=== PATIENT | female | born 1975 | race Caucasian/White ===

== ENCOUNTER 2020-05-08 11:51 | Emergency (ER) | payer MEDICAID, SELFPAY ==
--- NOTE | 2020-05-08 | XR_ITS ---
EXAMINATION: XR HAND, LEFT CLINICAL INFORMATION: Third digit swelling/erythema. COMPARISON: 03/04/2020 TECHNIQUE: PA, lateral, and oblique views of the left hand. FINDINGS: There is uniform circumferential soft tissue swelling in the long finger distally, most pronounced along the distal phalanx and DIP joint. There is subtle periostitis at the margins of the middle phalanx distally with subtle erosions as well. These findings are more pronounced as compared to prior. Other joints appear well-preserved. No additional areas of periostitis or erosion. Joint spaces are otherwise well-preserved. IMPRESSION: Soft tissue swelling, periostitis, and subtle erosions at the long finger at the DIP joint, most typical of psoriatic arthropathy. Septic arthritis is also on the differential, though less likely given the patient's time course.
[2020-05-08 12:09] VITALS: BP 119/73; PULSE 77; RESP 20; TEMP 36.9; O2SAT 99; BMI 28.4
[2020-05-08 13:56] VITALS: BP 105/62; PULSE 62; RESP 16; O2SAT 97
--- NOTE | 2020-05-08 14:16 | ED_ITS ---
HPI - Extremity Injury (Lower) General Chief Complaint: Extremity Injury, Lower Stated Complaint: leg pain Time Seen by Provider: 05/08/20 11:56 Source: patient Mode of arrival: ambulatory History of Present Illness HPI Narrative: 44-year-old female with a past medical history of chronic pain syndrome, lupus, RA on methotrexate, osteoarthritis, Hodgkin's disease, B12 deficiency c/o diffuse joint pain times yesterday, worse in bilateral knees and left 3rd digit. Admits to similar symptoms in the past. Denies trauma /falls. Denies fever, chills, numbness / tingling. MD complaint: knee injury Onset (ago): day(s) Related Data Home Medications Medication Instructions Recorded Confirmed apixaban [Eliquis] 5 mg PO BID 05/01/20 05/01/20 benztropine 0.5 mg PO DAILY 05/01/20 05/01/20 folic acid 1 mg PO DAILY 05/01/20 05/01/20 gabapentin 400 mg PO TID 05/01/20 05/01/20 risperidone 1 mg PO DAILY 05/01/20 05/01/20 sertraline 100 mg PO DAILY 05/01/20 05/01/20 Allergies Allergy/AdvReac Type Severity Reaction Status Date / Time almond [ALMONDS] Allergy Severe ANAPHYLAXIS Verified 05/01/20 08:28 adhesive tape [ADHESIVE TAPE] Allergy Intermediate RASH Verified 05/01/20 08:28 morphine [MORPHINE] Allergy Intermediate GI UPSET, Verified 05/01/20 08:28 difficulty breathing tramadol [TRAMADOL] AdvReac Unknown NAUSEA & Verified 05/01/20 08:28 VOMITING Review of Systems Review of Systems: Constitutional: No Weight loss, No Fever, No Chills, No Night Sweats, No Fatigue Cardiovascular: No Chest Pain, No SOB, No Dyspnea on Exertion, No Orthopnea, No Edema, No Palpitations Respiratory: No Cough, No Sputum, No Wheezing Gastrointestinal: No Nausea, No Vomiting, No Diarrhea, No Constipation, No abdominal Pain Musculoskeletal: + joint pain, + Myalgias, + Joint Swelling Skin: No Skin Lesions, No rash Neuro: No Weakness, No Numbness, No Paresthesias, No Loss of Consciousness Psych: No Anxiety/Panic, No Depression, No SI/HI/AH/VH, No Social Issues, Yes all other systems are reviewed and are negative Neurologic: Denies Sensory deficit (Neuro) [facility] Past Medical History Attestation statement: The following information was validated with the patient. Medical History Acute arthritis Bleeding hemorrhoid Chronic GERD De Quervain's disease (tenosynovitis) Degeneration of intervertebral disc at C4-C5 level Degeneration, intervertebral disc, lumbar Depressive disorder Esophageal dysphagia Fibromyalgia Frequency-urgency syndrome Gallstones Hodgkin disease Nocturia Osteoarthritis of spine with radiculopathy, lumbar region Rheumatoid arthritis involving multiple sites Seropositive rheumatoid arthritis Stress incontinence in female Systemic lupus erythematosus Urgency-frequency syndrome Vitamin D deficiency Surgical History (Updated 04/26/20 @ 13:35 by Meri Martinez MA) History of esophagogastroduodenoscopy (EGD) History of lymph node dissection of left axilla History of repair of inguinal hernia Social History Social History Alcohol intake: unknown Smoking Status: Current every day smoker Smoked in Last 30 Days: Yes Use of substances other than those prescribed or required for medical reasons: Unknown Advance Directives: No Advance Directives Information Provided: Yes Physical Exam Vital Signs and I&O and Narrative: Vital Signs and I&O: Vital Signs Temp 98.4 F 05/08/20 12:09 Pulse 62 05/08/20 13:56 Resp 16 05/08/20 13:56 BP 105/62 05/08/20 13:56 Pulse Ox 97 05/08/20 13:56 Intake & Output 05/07/20 05/08/20 05/08/20 18:59 06:59 18:59 Weight 79.832 kg Body Mass Index 28.4 Const: General: cooperative Orientation/consciousness: patient oriented x3 Limitations: no limitations HENMT: Head: Yes normal to inspection Ears: hearing grossly normal bilaterally General nose exam: Normal external nose present Face and sinus: Yes normal facial exam Eyes: General: appearance normal, both eyes and all related structures EOM: EOMs intact bilaterally Neck: Neck: Yes normal visual inspection Resp: Effort & Inspection: normal respiratory effort Cardio: Rate: regular rate Peripheral pulses: Peripheral pulses 2+ throughout GI: Inspection: Yes normal to inspection Palpation (GI): Soft to palpation, nontender, no guarding and not rigid Skin: General skin exam: no rashes or lesions noted Neuro: General: patient oriented x3 Sensory Exam: No Sensory deficit (Neuro) Extrem: Other: Distal left 3rd digit with erythema, swelling, and tenderness. Decreased range of motion secondary to pain. No streaking, fluctuance /induration or crepitus Bilateral knees with tenderness and decreased range of motion secondary to pain. No swelling, erythema, crepitus Course Course Course Narrative: -1417--XR showing: Soft tissue swelling, periostitis, and subtle erosions at the long finger at the DIP joint, most typical of psoriatic arthropathy. Septic arthritis is also on the differential, though less likely given the patient's time course -1630-- no leukocytosis, H&H at baseline, ESR chronically elevated, CRP WNL Lactate negative >> without newly elevated inflammatory markers or lactate, and due to patient's history/abrupt onset of symptoms septic arthritis unlikely. MDM - Extremity Injury (Lower) MDM Narrative Medical decision making narrative: 44-year-old female with a past medical history of chronic pain syndrome, lupus, RA on methotrexate, osteoarthritis, Hodgkin's disease, B12 deficiency c/o diffuse joint pain times yesterday, worse in bilateral knees and left 3rd digit. On exam VSS, NAD, tenderness to palpation of multiple joints, left 3rd digit with erythema. Low concern for abscess. Likely OA/RA flare. Low concern for septic joint /arthritis or cellulitis Plan: X-ray, labs Lab Data Result diagrams: 05/08/20 15:12 05/08/20 15:12 Labs: Lab Results 05/08/20 05/08/20 05/08/20 Range/Units 15:12 15:12 15:12 WBC 4.5 L (4.8-10.8) X10*3/uL RBC 3.68 L (4.20-5.50) X10*6/uL Hgb 11.6 L (12.0-16.0) g/dl Hct 35.6 L (37-47) % MCV 96.7 (80-98) fL MCH 31.5 (27.0-33.0) pg MCHC 32.6 (31.0-35.0) g/dl RDW 13.5 (11.0-16.0) % Plt Count 242 (160-400) X10*3/uL MPV 9.7 (9.4-12.3) fL Immature Gran % (Auto) 0.4 (0.0-0.4) % Neut % (Auto) 39.7 L (45-73) % Lymph % (Auto) 52.3 H (20-40) % [place] % (Auto) 5.6 (2-11) % Eos % (Auto) 1.8 (0-4) % Baso % (Auto) 0.2 (0-2) % Lymph # (Auto) 2.3 (1.2-4.9) X10*3/uL [place] # (Auto) 0.3 (0.1-1.2) X10*3/uL Eos # (Auto) 0.1 (0.0-0.4) X10*3/uL Baso # (Auto) 0.0 (0.0-0.2) X10*3/uL Abs Immat Gran (auto) 0.02 (0.00-0.03) X10*3/uL Absolute Neuts (auto) 1.8 L (2.0-8.3) X10*3/uL Absolute Nucleated RBC 0.000 (0.0-0.012) X10*3/uL Nucleated RBC % (auto) 0.0 (0.0-0.2) /100WBC ESR 85 H (0-20) MM/HR Sodium 139 (135-145) mmol/L Potassium 4.2 (3.3-5.1) mmol/l Chloride 104 (96-108) mmol/L Carbon Dioxide 28 (22-29) mmol/L Anion Gap 11 L (12-20) BUN 7 L (9-16) mg/dL Creatinine 0.76 (0.5-1.4) mg/dL Estim Creat Clear Calc 101.7 Estimated GFR > 60 Random Glucose 84 (60-115) mg/dL Lactic Acid (0.5-2.0) mmol/L Calcium 9.4 (8.4-10.2) mg/dL C-Reactive Protein 0.43 (< or = 0.50) mg/dL 05/08/20 Range/Units 15:12 WBC (4.8-10.8) X10*3/uL RBC (4.20-5.50) X10*6/uL Hgb (12.0-16.0) g/dl Hct (37-47) % MCV (80-98) fL MCH (27.0-33.0) pg MCHC (31.0-35.0) g/dl RDW (11.0-16.0) % Plt Count (160-400) X10*3/uL MPV (9.4-12.3) fL Immature Gran % (Auto) (0.0-0.4) % Neut % (Auto) (45-73) % Lymph % (Auto) (20-40) % [place] % (Auto) (2-11) % Eos % (Auto) (0-4) % Baso % (Auto) (0-2) % Lymph # (Auto) (1.2-4.9) X10*3/uL [place] # (Auto) (0.1-1.2) X10*3/uL Eos # (Auto) (0.0-0.4) X10*3/uL Baso # (Auto) (0.0-0.2) X10*3/uL Abs Immat Gran (auto) (0.00-0.03) X10*3/uL Absolute Neuts (auto) (2.0-8.3) X10*3/uL Absolute Nucleated RBC (0.0-0.012) X10*3/uL Nucleated RBC % (auto) (0.0-0.2) /100WBC ESR (0-20) MM/HR Sodium (135-145) mmol/L Potassium (3.3-5.1) mmol/l Chloride (96-108) mmol/L Carbon Dioxide (22-29) mmol/L Anion Gap (12-20) BUN (9-16) mg/dL Creatinine (0.5-1.4) mg/dL Estim Creat Clear Calc Estimated GFR Random Glucose (60-115) mg/dL Lactic Acid 1.1 (0.5-2.0) mmol/L Calcium (8.4-10.2) mg/dL C-Reactive Protein (< or = 0.50) mg/dL Discharge Plan Discharge Prescriptions: No Action benztropine 0.5 mg Tablet 0.5 mg PO DAILY RF: 0 sertraline 100 mg Tablet 100 mg PO DAILY RF: 0 folic acid 1 mg Tablet 1 mg PO DAILY RF: 0 risperidone 1 mg Tablet 1 mg PO DAILY RF: 0 gabapentin 400 mg Tablet 400 mg PO TID RF: 0 Eliquis 5 mg Tablet 5 mg PO BID RF: 0
[2020-05-08] MEDS: oxyCODONE HCl Immed Release 5 MG TABLET PO (15:01)
[2020-05-08 15:16] LABS: MANUAL DIFF FLAG NO
[2020-05-08 15:19] LABS: Basophils Percent Auto 0.2 % (0-2); Eosinophils Absolute Auto 0.1 X10*3/uL (0.0-0.4); Eosinophils Percent Auto 1.8 % (0-4); Hematocrit 35.6 % (37-47); Hemoglobin 11.6 g/dl (12.0-16.0); Imm Gran Abs Auto 0.02 X10*3/uL (0.00-0.03); Imm Gran Pct Auto 0.4 % (0.0-0.4); Lymphocytes Absolute Auto 2.3 X10*3/uL (1.2-4.9); Lymphocytes Percent Auto 52.3 % (20-40); Mean Corpuscular HGB Conc 32.6 g/dl (31.0-35.0); Mean Corpuscular Hemoglobin 31.5 pg (27.0-33.0); Mean Corpuscular Volume 96.7 fL (80-98); Mean Platelet Volume 9.7 fL (9.4-12.3); Monocytes Absolute Auto 0.3 X10*3/uL (0.1-1.2); Monocytes Percent Auto 5.6 % (2-11); Neutrophils Absolute Auto 1.8 X10*3/uL (2.0-8.3); Neutrophils Percent Auto 39.7 % (45-73); Platelet Count 242 X10*3/uL (160-400); Red Blood Count 3.68 X10*6/uL (4.20-5.50); Red Cell Distribution Width 13.5 % (11.0-16.0); White Blood Count 4.5 X10*3/uL (4.8-10.8)
[2020-05-08 15:40] LABS: Lactic Acid 1.1 mmol/L (0.5-2.0)
[2020-05-08 15:43] LABS: Anion Gap 11 (12-20); Blood Urea Nitrogen 7 mg/dL (9-16); C Reactive Protein 0.43 mg/dL (< or = 0.50); Calcium 9.4 mg/dL (8.4-10.2); Carbon Dioxide 28 mmol/L (22-29); Chloride 104 mmol/L (96-108); Creatinine Clr Calc Pharmacy 101.7; Estimated Glomerular Filt Rate > 60; Glucose Random 84 mg/dL (60-115); Potassium 4.2 mmol/l (3.3-5.1); Sodium 139 mmol/L (135-145)
[2020-05-08 16:09] LABS: Erythrocyte Sedimentation Rate 85 MM/HR (0-20)
[2020-05-08 16:40] VITALS: BP 112/76; PULSE 70; RESP 16; O2SAT 98
== END 2020-05-08 17:38 | disposition home or self-care (01) ==
PROVIDERS: Physician Assistant; Emergency Provider Internal Medicine
DX: M89.49 Other hypertrophic osteoarthropathy, multiple sites (principal); F17.200 Nicotine dependence, unspecified, uncomplicated; Z86.718 Personal history of other venous thrombosis and embolism; M05.9 Rheumatoid arthritis with rheumatoid factor, unspecified; Z85.71 Personal history of Hodgkin lymphoma; Z79.899 Other long term (current) drug therapy; Z79.01 Long term (current) use of anticoagulants
CPT/HCPCS: 36415; 73130; 80048; 83605; 85025; 85652; 86140; 99283; 99284

== ENCOUNTER 2020-05-09 09:41 | Outpatient (REF) | payer MEDICAID, SELFPAY ==
[2020-05-09 11:54] LABS: MANUAL DIFF FLAG NO
[2020-05-09 12:09] LABS: Basophils Percent Auto 0.4 % (0-2); Eosinophils Absolute Auto 0.1 X10*3/uL (0.0-0.4); Eosinophils Percent Auto 2.1 % (0-4); Hematocrit 35.6 % (37-47); Hemoglobin 11.6 g/dl (12.0-16.0); Imm Gran Abs Auto 0.01 X10*3/uL (0.00-0.03); Imm Gran Pct Auto 0.2 % (0.0-0.4); Lymphocytes Percent Auto 40.3 % (20-40); Mean Corpuscular HGB Conc 32.6 g/dl (31.0-35.0); Mean Corpuscular Hemoglobin 31.6 pg (27.0-33.0); Mean Platelet Volume 10.2 fL (9.4-12.3); Monocytes Absolute Auto 0.3 X10*3/uL (0.1-1.2); Monocytes Percent Auto 6.2 % (2-11); Neutrophils Absolute Auto 2.5 X10*3/uL (2.0-8.3); Neutrophils Percent Auto 50.8 % (45-73); Platelet Count 256 X10*3/uL (160-400); Red Blood Count 3.67 X10*6/uL (4.20-5.50); Red Cell Distribution Width 13.5 % (11.0-16.0); White Blood Count 4.9 X10*3/uL (4.8-10.8)
[2020-05-09 12:10] LABS: Glucose Urine UA NEG (NEG); Leukocyte Esterase Urine NEG (NEG); Nitrite Urine NEG (NEG); PH 5.5 (5.0-8.0); Specific Gravity - Urine >= 1.030 (1.005-1.025); Urine Blood 1+ (NEG); Urine Ketones NEG (NEG); Urine Protein NEG (NEG-TRACE)
[2020-05-09 12:27] LABS: Alanine Aminotransferase 13 U/L (0-31); Albumin Level 3.9 g/dL (3.5-5.0); Alkaline Phosphatase 65 U/L (39-117); Anion Gap 11 (12-20); Aspartate Amino Transferase 16 U/L (5-31); Bilirubin Total 0.3 mg/dL (0.0-1.0); Blood Urea Nitrogen 11 mg/dL (9-16); C Reactive Protein 0.57 mg/dL (< or = 0.50); Carbon Dioxide 26 mmol/L (22-29); Chloride 104 mmol/L (96-108); Estimated Glomerular Filt Rate > 60; Glucose Random 88 mg/dL (60-115); Potassium 4.2 mmol/l (3.3-5.1); Sodium 137 mmol/L (135-145); Total Protein 8.4 g/dL (6.5-8.0)
[2020-05-09 12:42] LABS: Appearance Urine HAZY; Color Urine YELLOW
[2020-05-09 12:55] LABS: Mucus Urine 2+ /LPF; Squamous Epithelial Cell Urine 2+ /LPF; WBC Urine 0 /HPF (0-4)
[2020-05-09 15:12] LABS: Erythrocyte Sedimentation Rate 83 MM/HR (0-20)
[2020-05-10 12:36] LABS: Anti DNA DS Antibody 2 IU/mL
[2020-05-12 10:26] LABS: Complement C3 85 mg/dL (83-193)
[2020-05-12 14:36] LABS: Prot Elec - Albumin 3.8 g/dL (3.8-4.8); Prot Elec - Alpha1 0.4 g/dL (0.2-0.3); Prot Elec - Alpha2 0.8 g/dL (0.5-0.9); Prot Elec - Beta 1 0.5 g/dL (0.4-0.6); Prot Elec - Beta 2 0.6 g/dL (0.2-0.5); Prot Elec - Gamma 2.3 g/dL (0.8-1.7); Prot Elec - Total Protein 8.3 g/dL (6.1-8.1)
[2020-05-12 15:22] LABS: IgA 578 mg/dL (47-310); IgG 2576 mg/dL (600-1640); IgM 181 mg/dL (50-300)
[2020-05-20 11:14] LABS: PEU-Random Urine Creatinine 151
[2020-05-20 11:16] LABS: PEU-Random Urine Protein 11
[2020-05-20 11:19] LABS: PEU-Rand. Prot/Creat Ratio 73
[2020-05-20 11:20] LABS: PEU-Random Ur. Gamma Globulin 0; PEU-Random Urine A1 Globulin 0; PEU-Random Urine A2 Globulin 0; PEU-Random Urine Albumin 100; PEU-Random Urine Beta Globulin 0
== END 2020-05-09 09:42 | disposition home or self-care (01) ==
LOC: HO.LAB 09:41
PROVIDERS: PCP Emergency Medicine; Referring Provider Emergency Medicine; Visit Provider Student in an Organized Health Care Education/Training Program
DX: M05.9 Rheumatoid arthritis with rheumatoid factor, unspecified (principal); M32.9 Systemic lupus erythematosus, unspecified; F17.200 Nicotine dependence, unspecified, uncomplicated; Z79.899 Other long term (current) drug therapy
CPT/HCPCS: 36415; 80053; 81001; 82570; 82784; 84155; 84156; 84165; 84166; 85025; 85652; 86140; 86160; 86225; 86334; 86335; 99214

== ENCOUNTER 2020-05-20 13:53 | Outpatient (REF) | payer MEDICAID, SELFPAY ==
--- NOTE | 2020-05-20 | US_ITS ---
EXAMINATION: US RETROPERITONEAL LIMITED (RENAL ONLY) CLINICAL INFORMATION: Abdominal pain. History of renal stones. COMPARISON: Limited abdominal ultrasound dated 03/15/2020. CT abdomen and pelvis dated 02/27/2019 TECHNIQUE: Real-time imaging of the kidneys. FINDINGS: RIGHT KIDNEY: 11.4 x 5.3 x 5.0 cm (SAG x AP x TRV). The kidney is normal in size, contour, and echogenicity. Renal cortical thickness is normal. No calculi or focal parenchymal lesions. No hydronephrosis. LEFT KIDNEY: 11.1 x 5.6 x 5.6 cm (SAG x AP x TRV). The kidney is normal in size, contour, and echogenicity. Renal cortical thickness is normal. No calculi or focal parenchymal lesions. No hydronephrosis. IMPRESSION: Normal renal ultrasound. No stone seen.
--- NOTE | 2020-05-20 14:49 | XR_ITS ---
EXAMINATION: XR KNEE, LEFT CLINICAL INFORMATION: Left knee osteoarthritis COMPARISON: Previous x-rays most recent March 2020 TECHNIQUE: Three views of the left knee. FINDINGS: Bone alignment is normal. No fracture or dislocation is seen. Joint spaces are normal. There is no joint effusion. IMPRESSION: Normal left knee.
[2020-05-20 15:13] LABS: Glucose Urine UA NEG (NEG); Leukocyte Esterase Urine NEG (NEG); Nitrite Urine NEG (NEG); PH 5.5 (5.0-8.0); Specific Gravity - Urine >= 1.030 (1.005-1.025); Urine Blood TRACE (NEG); Urine Ketones NEG (NEG); Urine Protein NEG (NEG-TRACE)
[2020-05-20 15:16] LABS: Appearance Urine CLEAR; Color Urine YELLOW
[2020-05-20 15:29] LABS: Bacteria Urine TRACE /LPF; Squamous Epithelial Cell Urine 1+ /LPF; WBC Urine 0-2 /HPF (0-4)
[2020-05-20 15:46] LABS: Erythrocyte Sedimentation Rate 87 MM/HR (0-20)
[2020-05-21 09:56] LABS: HBS Num1 6.21 mIU/mL (0-7.99); HBc Num1 0.25 S/CO (0.00-0.79); HBsAGNum1 0.23 S/CO (0.00-0.99); Hepatitis A Antibody IgM 0.19 Index (0-0.79); Hepatitis B Core Antibody Nonreactive (Nonreactive); Hepatitis B Surface Antigen Negative (Negative); ~HepC Num1 0.28 S/CO (0.00-0.79); ~Hepatitis A Antibody IgM Nonreactive (Nonreactive); ~Hepatitis B Surface Antibody NONREACTIVE (Nonreactive); ~Hepatitis C Antibody Nonreactive (Nonreactive)
[2020-05-22 11:52] LABS: Anti DNA DS Antibody 2 IU/mL
== END 2020-05-20 13:54 | disposition home or self-care (01) ==
LOC: HO.US 13:53
PROVIDERS: PCP Emergency Medicine; Referring Provider Student in an Organized Health Care Education/Training Program; Visit Provider Emergency Medicine
DX: M05.9 Rheumatoid arthritis with rheumatoid factor, unspecified (principal); R10.9 Unspecified abdominal pain; M17.12 Unilateral primary osteoarthritis, left knee; Z87.442 Personal history of urinary calculi; Z88.8 Allergy status to other drugs, medicaments and biological substances; Z88.5 Allergy status to narcotic agent; Z91.018 Allergy to other foods; Z79.899 Other long term (current) drug therapy; Z87.891 Personal history of nicotine dependence
CPT/HCPCS: 36415; 73562; 76775; 81001; 85652; 86140; 86225; 86704; 86706; 86709; 86803; 87340; 99214

== ENCOUNTER → 2020-05-26 13:49 | Outpatient (BNVA) | payer MEDICAID, SELFPAY | PROVIDERS: Visit Provider Anesthesiology | DX: M05.9 Rheumatoid arthritis with rheumatoid factor, unspecified (principal); M32.9 Systemic lupus erythematosus, unspecified; M06.9 Rheumatoid arthritis, unspecified; M47.26 Other spondylosis with radiculopathy, lumbar region; C81.90 Hodgkin lymphoma, unspecified, unspecified site; G89.4 Chronic pain syndrome; Z79.899 Other long term (current) drug therapy | CPT/HCPCS: 99213 ==

== ENCOUNTER 2020-05-27 10:37 | Outpatient (REF) | payer MEDICAID, SELFPAY ==
[2020-05-27 15:02] LABS: Glucose Urine UA NEG (NEG); Leukocyte Esterase Urine NEG (NEG); Nitrite Urine NEG (NEG); Specific Gravity - Urine 1.025 (1.005-1.025); Urine Blood 3+ (NEG); Urine Ketones NEG (NEG); Urine Protein NEG (NEG-TRACE)
[2020-05-27 15:03] LABS: Appearance Urine CLOUDY; Color Urine YELLOW
[2020-05-27 15:12] LABS: Squamous Epithelial Cell Urine 1+ /LPF; WBC Urine 0-2 /HPF (0-4)
== END 2020-05-27 10:38 | disposition home or self-care (01) ==
LOC: HO.10HDL 10:37
PROVIDERS: Visit Provider Student in an Organized Health Care Education/Training Program
DX: M32.9 Systemic lupus erythematosus, unspecified (principal)
CPT/HCPCS: 81001

== ENCOUNTER 2020-05-28 10:02 | Emergency (ER) | payer MEDICAID, SELFPAY ==
[2020-05-28 10:19] VITALS: BP 128/73; PULSE 75; RESP 16; TEMP 36.7; O2SAT 100; BMI 28.7
--- NOTE | 2020-05-28 10:37 | PC.NURSE ---
MARY RIOJAS SPOKE WITH PTS SURGEON AT [facility], HE SAW HER TWO DAYS AGO, NO S/SX INFECTION, HAS F/U APPT TODAY WITH SURGEON, PT UPDATED AND ENCOURAGED TO F/U SCHEDULED
--- NOTE | 2020-05-28 13:14 | ED_ITS ---
HPI - Wound/Laceration General Chief Complaint: Wound/Laceration Stated Complaint: infected surgical incision Time Seen by Provider: 05/28/20 10:25 Source: patient Mode of arrival: ambulatory Limitations: no limitations History of Present Illness HPI narrative: 44-year-old female with no known past medical history had right- sided lymph biopsy at [facility] subsequently resulting in post procedures seroma being followed by Dr. Mendoza [facility] general surgery for this presents today with complaint of pain at the site of this biopsy on the right side chest just inferior to the axilla. No chest pain or shortness of breath. Onset (ago): day(s) Patient tetanus UTD: Yes Associated symptoms: pain Related Data Home Medications Medication Instructions Recorded Confirmed apixaban [Eliquis] 5 mg PO BID 05/01/20 05/20/20 benztropine 0.5 mg PO DAILY 05/01/20 05/20/20 folic acid 1 mg PO DAILY 05/01/20 05/20/20 gabapentin 400 mg PO TID 05/01/20 05/20/20 risperidone 1 mg PO DAILY 05/01/20 05/20/20 sertraline 100 mg PO DAILY 05/01/20 05/20/20 Previous Rx's Medication Instructions Recorded hydrocodone-acetaminophen [Creston] 1 tab PO Q8H PRN #9 tab 05/08/20 hydroxychloroquine 200 mg tablet 200 mg PO BID #60 tab 05/09/20 sulfasalazine 500 mg tablet 1 g PO BID #60 tab 05/09/20 methotrexate (PF) 25 mg/0.5 mL 25 mg SUBCUT QWEEK #2 ml 05/15/20 subcutaneous auto-injector methotrexate sodium (PF) 25 mg/mL 25 mg SUBCUT QWEEK 30 Days #4 ml 05/20/20 injection solution prednisone 10 mg tablet 10 mg PO DAILY #70 tab 05/20/20 syringe with needle, safety 1 mL #50 ea 05/20/20 28 gauge x 1/2 adhesive bandage 1 #20 ea 05/21/20 alcohol swabs 2 pad TOPICAL .COMPLEX #100 ea 05/21/20 Allergies Allergy/AdvReac Type Severity Reaction Status Date / Time almond [ALMONDS] Allergy Severe ANAPHYLAXIS Verified 05/20/20 12:50 adhesive tape [ADHESIVE TAPE] Allergy Intermediate RASH Verified 05/20/20 12:50 morphine [MORPHINE] Allergy Intermediate GI UPSET, Verified 05/20/20 12:50 difficulty breathing tramadol [TRAMADOL] AdvReac Unknown NAUSEA & Verified 05/20/20 12:50 VOMITING Review of Systems Review of Systems: Constitutional: No Weight loss, No Fever, No Chills, No Night Sweats, No Fatigue, No Malaise ENT/Mouth: No Hearing loss, No Ear Pain, No Nasal Congestion, No Sinus Pain, No Hoarseness, No sore throat, No Rhinorrhea, No Swallowing Difficulty Eyes: No Eye Pain, No Swelling, No Redness, No Foreign Body, No Discharge, No Vision Changes Cardiovascular: No Chest Pain, No SOB, No Dyspnea on Exertion, No Orthopnea, No Edema, No Palpitations Respiratory: No Cough, No Sputum, No Wheezing, No Smoke Exposure, No Dyspnea Gastrointestinal: No Nausea, No Vomiting, No Diarrhea, No Constipation, No abdominal Pain, No Hematochezia, No Melena Genitourinary: no irregular bleeding, No Dysuria, No Urinary Frequency, No Hematuria, No Urinary Incontinence, No Urgency, No Flank Pain, No Urinary Flow Changes, No Hesitancy Musculoskeletal: No joint pain, No Myalgias, No Joint Swelling Skin: No Skin Lesions, No rash Neuro: No Weakness, No Numbness, No Paresthesias, No Loss of Consciousness, No Dizziness, No Headache Psych: No Social Issues Heme/Lymph: No Bruising, No Bleeding,No Lymphadenopathy Endocrine: No Polyuria, No Polydipsia, No Temperature Intolerance Yes all other systems are reviewed and are negative [facility] Past Medical History Medical History Acute arthritis Bleeding hemorrhoid Chronic GERD De Quervain's disease (tenosynovitis) Degeneration of intervertebral disc at C4-C5 level Degeneration, intervertebral disc, lumbar Depressive disorder Esophageal dysphagia Fibromyalgia Frequency-urgency syndrome Gallstones Hodgkin disease Nocturia Osteoarthritis of spine with radiculopathy, lumbar region Rheumatoid arthritis involving multiple sites Seropositive rheumatoid arthritis Stress incontinence in female Systemic lupus erythematosus Urgency-frequency syndrome Vitamin D deficiency Surgical History (Updated 04/26/20 @ 13:35 by Meri Martinez MA) History of esophagogastroduodenoscopy (EGD) History of lymph node dissection of left axilla History of repair of inguinal hernia Social History Social History (Updated 05/20/20 @ 12:54 by Cam Robin LPN) Alcohol intake: never Smoking Status: Current every day smoker Use of substances other than those prescribed or required for medical reasons: No Advance Directives: Yes Advance Directives Information Provided: Yes Advance Directives on File: No Physical Exam Vital Signs: Vital Signs: Vital Signs Temp Pulse Resp BP Pulse Ox 05/28/20 10:19 98.1 F 75 16 128/73 100 Body Mass Index 28.7 Reniewed Const: General: cooperative and healthy appearing; No acute distress or intoxicated appearing Nutritional Appearance: average body habitus Puneet entation/consciousness: patient oriented x3 HENMT: Head: Yes normal to inspection Ears: hearing grossly normal bilaterally Eyes: General: appearance normal, both eyes and all related structures Visual Ramirez: normal visual ramirez by confrontation Neck: Neck: Yes normal visual inspection and No tender Thyroid: Thyroid normal Chest: Chest palpation & inspection: normal inspection of the chest Chest/axillae images: 1. Linear surgical incision eamon appears to be healing well. There is no erythema there is induration the site she showed me a picture from prior to surgery and after surgery this indurated area does appear to look much smaller. There is some slight tender to palpation. No drainage/discharge. Resp: Effort & Inspection: normal respiratory effort Cardio: Jugular venous distension: no JVD GI: Inspection: Yes normal to inspection Percussion: Yes normal to percussion Auscultation: normal bowel sounds Skin: General skin exam: no rashes or lesions noted Neuro: General: patient oriented x3 Extrem: General: Yes normal to inspection Course Course Course Narrative: States to me that since the procedure she has asked for prescription pain medication from her surgeon that did the biopsy and is not happy with the fact that she has not gone any prescriptions. It is revealed that patient does have an appointment in 3 hours at 01:20 at [facility] with her surgeon that did the biopsy. In review of chart does have history of chronic pain syndrome seen pain management. The site does not appear to be infected. Call was given to [facility] general surgery team Dr. Mendoza whom I spoke to who informed me that he actually did see the patient 2 days ago in office and has an appointment today she does have a post lymph node biopsy seroma that she was given option to do compresses or have it drained and the plan was to follow-up today. He did give me option to drain here in the emergency room or have her be seen in the office by him but he would recommend avoiding drainage as there is a higher risk of recurrence and potential for infection. Agreeable a friend for this at this time and she be seen in office. As it relates to pain she has full range of motion there is no site infection. Concern for medication seeking type behavior which she has had in the past. Does follow pain management. At this time instructed do supportive care with nonnarcotic base analgesia. She will be discharged for follow-up in 3 hours with her general surgeon. Discharge Plan Discharge Clinical Impression: Drug-seeking behavior, Seroma after procedure, Seroma Patient Disposition: Home, Self-Care Instructions: Seroma (DC) Prescriptions: No Action methotrexate (PF) 25 mg/0.5 mL auto-injector 25 mg subcut QWEEK Qty: 2 RF: 3 methotrexate sodium (PF) 25 mg/mL solution 25 mg subcut QWEEK 30 Days Qty: 4 RF: 3 (DME) Monoject TB Safety Syringe 1 mL 28 gauge x 1/2 syringe See Rx Instructions .ROUTE .MEDSUPPLY Qty: 50 RF: 1 alcohol swabs [Alcohol Prep Pads] Pads, Medicated 2 pad topical .COMPLEX Qty: 100 RF: 3 (DME) adhesive bandage 1 bandage See Rx Instructions .ROUTE .MEDSUPPLY Qty: 20 RF: 5 benztropine 0.5 mg Tablet 0.5 mg PO DAILY RF: 0 sertraline 100 mg Tablet 100 mg PO DAILY RF: 0 folic acid 1 mg Tablet 1 mg PO DAILY RF: 0 risperidone 1 mg Tablet 1 mg PO DAILY RF: 0 gabapentin 400 mg Tablet 400 mg PO TID RF: 0 Eliquis 5 mg Tablet 5 mg PO BID RF: 0 hydrocodone-acetaminophen [[place]] 5-325 mg tablet 1 tab PO Q8H PRN (Reason: pain) Qty: 9 RF: 0 hydroxychloroquine [Plaquenil] 200 mg tablet 200 mg PO BID Qty: 60 RF: 0 sulfasalazine 500 mg tablet 1 g PO BID Qty: 60 RF: 0 prednisone 10 mg tablet 10 mg PO DAILY Qty: 70 RF: 0 Referrals: Physician,Unknown [Primary Care Provider] - 2 days (Dr. Mendoza AT [facility] today at 1:00 ) Interventions: ED Discharge Assessment Last Done: 05/28/20 10:41 Discharge Date/Time: 05/28/20 10:43
== END 2020-05-28 10:43 | disposition home or self-care (01) ==
PROVIDERS: Emergency Provider Emergency Medicine
DX: L76.34 Postprocedural seroma of skin and subcutaneous tissue following other procedure (principal); Z79.899 Other long term (current) drug therapy; F17.200 Nicotine dependence, unspecified, uncomplicated; Z71.6 Tobacco abuse counseling
CPT/HCPCS: 99282; 99284

== ENCOUNTER 2020-06-09 10:39 | Outpatient (REF) | payer MEDICAID, SELFPAY | END 2020-06-09 10:40 | disposition home or self-care (01) | LOC: HO.LAB 10:39 | PROVIDERS: Visit Provider Internal Medicine | DX: M05.9 Rheumatoid arthritis with rheumatoid factor, unspecified (principal); G89.4 Chronic pain syndrome; M32.9 Systemic lupus erythematosus, unspecified; M06.9 Rheumatoid arthritis, unspecified; M47.26 Other spondylosis with radiculopathy, lumbar region; C81.90 Hodgkin lymphoma, unspecified, unspecified site; Z20.828 Contact with and (suspected) exposure to other viral communicable diseases; Z79.899 Other long term (current) drug therapy | CPT/HCPCS: 99212; C9803; U0003 ==

== ENCOUNTER 2020-06-09 13:52 | Emergency (ER) | payer MEDICAID, SELFPAY ==
[2020-06-09 15:14] VITALS: BP 155/76; PULSE 69; RESP 16; TEMP 36.6; O2SAT 97; BMI 29.0
--- NOTE | 2020-06-09 16:11 | ED.WOUNDLAC ---
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 Patient is here with leakage from the TON drain site. She does admit she has some associated pain. The leakage is clear and color. She is still having some drainage in her TON drain. She denies any fevers, chills or associated redness. she told me she called her surgeon has an appointment June 11 to see him in the office. Her pathology notes from Dr. GATICA the patient's pathology showed reactive benign lymphadenopathy with no evidence of carcinoma or lymphoma. Of note, the patient was seen at Pain Management this morning. She is on a pain contract and was given several extra doses of pain medicine. See their office visit note. Onset (ago): day(s) Related Data Home Medications Medication Instructions Recorded Confirmed apixaban [Eliquis] 5 mg PO BID 05/01/20 06/09/20 benztropine 0.5 mg PO DAILY 05/01/20 06/09/20 folic acid 1 mg PO DAILY 05/01/20 06/09/20 gabapentin 400 mg PO TID 05/01/20 06/09/20 risperidone 1 mg PO DAILY 05/01/20 06/09/20 sertraline 100 mg PO DAILY 05/01/20 06/09/20 Previous Rx's Medication Instructions Recorded hydroxychloroquine 200 mg tablet 200 mg PO BID #60 tab 05/09/20 methotrexate (PF) 25 mg/0.5 mL 25 mg SUBCUT QWEEK #2 ml 05/15/20 subcutaneous auto-injector methotrexate sodium (PF) 25 mg/mL 25 mg SUBCUT QWEEK 30 Days #4 ml 05/20/20 injection solution prednisone 10 mg tablet 10 mg PO DAILY #70 tab 05/20/20 syringe with needle, safety 1 mL #50 ea 05/20/20 28 gauge x 1/2 adhesive bandage 1 #20 ea 05/21/20 alcohol swabs 2 pad TOPICAL .COMPLEX #100 ea 05/21/20 tofacitinib 11 mg tablet,extended 11 mg PO DAILY #30 tab 05/28/20 release 24 hr hydrocodone 5 mg-acetaminophen 325 1 tab PO Q8H PRN 30 Days #90 tab 06/09/20 mg tablet Allergies Allergy/AdvReac Type Severity Reaction Status Date / Time almond [ALMONDS] Allergy Severe ANAPHYLAXIS Verified 05/20/20 12:50 adhesive tape [ADHESIVE TAPE] Allergy Intermediate RASH Verified 05/20/20 12:50 morphine [MORPHINE] Allergy Intermediate GI UPSET, Verified 05/20/20 12:50 difficulty breathing tramadol [TRAMADOL] AdvReac Unknown NAUSEA & Verified 05/20/20 12:50 VOMITING Review of Systems Review of Systems: Yes all other systems are reviewed and are negative Constitutional: Constitutional: Reports no additional constitutional complaints, Denies body ache(s), Denies chills, Denies fever(s), Denies headache(s) and Denies weakness Eyes: Eyes: Reports no additional eye complaints and Denies change in vision ENT: Reports system reviewed and no additional complaints, except as documented, Denies dizziness, Denies headache(s), Denies nasal congestion, Denies nasal discharge and Denies neck pain Cardiovascular: Cardiovascular: Reports no additional cardiovascular complaints, Denies chest pain, Denies leg edema and Denies dyspnea Respiratory: Respiratory: Reports no additional respiratory complaints, Denies cough and Denies dyspnea Gastrointestinal: Gastrointestinal: Reports no additional gastrointestinal complaints, Denies abdominal pain, Denies diarrhea, Denies nausea and Denies vomiting Genitourinary: Genitourinary: Reports no additional female genitourinary complaints and Denies urinary incontinence Musculoskeletal: Musculoskeletal: Reports no additional musculoskeletal complaints, Denies back pain, Denies arthralgias, Denies joint swelling, Denies neck pain, Denies numbness and Denies tingling Integumentary/Breasts: Skin/Breast: Reports system reviewed and no additional complaints, except as docu and Denies rash Neurologic: Reports system reviewed and no additional complaints, except as documented, Denies Abnormal speech present, Denies dizziness, Denies headache(s), Denies numbness, Denies tingling and Denies weakness PMF Past Medical History Attestation statement: The following information was validated with the patient. Source: obtained from family and nursing notes reviewed Medical History Acute arthritis Bleeding hemorrhoid Chronic GERD De Quervain's disease (tenosynovitis) Degeneration of intervertebral disc at C4-C5 level Degeneration, intervertebral disc, lumbar Depressive disorder Esophageal dysphagia Fibromyalgia Frequency-urgency syndrome Gallstones Hodgkin disease Nocturia Osteoarthritis of spine with radiculopathy, lumbar region Rheumatoid arthritis involving multiple sites Seropositive rheumatoid arthritis Stress incontinence in female Systemic lupus erythematosus Urgency-frequency syndrome Vitamin D deficiency Surgical History History of esophagogastroduodenoscopy (EGD) History of lymph node dissection of left axilla History of repair of inguinal hernia Social History Social History Alcohol intake: never Smoking Status: Current every day smoker Smoked in Last 30 Days: No Use of substances other than those prescribed or required for medical reasons: No Advance Directives: No Advance Directives Information Provided: Yes Physical Exam Vital Signs: Vital Signs: Last Vital Signs Temp 97.8 F 06/09/20 15:14 Pulse 69 06/09/20 15:14 Resp 16 06/09/20 15:14 BP 155/76 H 06/09/20 15:14 Pulse Ox 97 06/09/20 15:14 Body Mass Index 29.0 Const: General: cooperative, healthy appearing, comfortable and no acute distress Orientation/consciousness: patient oriented x3 Limitations: no limitations HENMT: Head: Yes normal to inspection Ears: hearing grossly normal bilaterally General nose exam: Normal external nose present Face and sinus: Yes normal facial exam Mouth: Normal oral and palatal mucosa present Throat: Yes posterior oropharynx normal Eyes: General: appearance normal, both eyes and all related structures Pupils: Equal, round and reactive pupils present Neck: Neck: Yes normal visual inspection Chest: Other: To the right axillary area there is a healing surgical site noted. There is no surrounding erythema, fluctuance or induration. There is a TON drain present with serous fluid noted in the drain. There is no leaking noted at this time. There is some tenderness around the site. Chest palpation & inspection: normal inspection of the chest Resp: Effort & Inspection: normal respiratory effort Auscultation: clear to auscultation bilaterally Cardio: Rate: regular rate Rhythm: regular rhythm Peripheral pulses: Peripheral pulses 2+ throughout GI: Inspection: Yes normal to inspection Palpation (GI): Soft to palpation and nontender Auscultation: normal bowel sounds Back/Spine/Pelvis: Thoracic/Lumbar Spine: thoracic and lumbar spine normal to inspection Skin: General skin exam: no rashes or lesions noted Neuro: General: patient oriented x3, no focal motor deficits and normal sensation to monofilament Cranial nerves: Yes Equal, round and reactive pupils present Cognition (Neuro): normal cognition Speech: No Abnormal speech present Gait exam (Neuro): Normal gait present Motor exam (neuro): 5/5 motor strength present throughout Extrem: General: Yes normal to inspection Course Course Course Narrative: Patient is here with leaking from her surgical site and some associated pain. There is no signs or symptoms of infection. The patient did call her surgeon has an appointment in 2 days to see them. I recommended if she need to see them sooner that she should call their office. The patient was seen by pain management today and is on a pain contract and was given extra doses on her contract due to her pain. I recommend the patient take this as needed for pain. The patient's surgical site was reinforced with extra ABD padding and fluff dressing. Reviewed worrisome signs and symptoms and when to return to the emergency department. Comfortable with discharge home. Discharge Plan Discharge Clinical Impression: Visit for wound check Patient Disposition: Home, Self-Care Instructions: [facility] Drain Care (ED) Additional Instructions: We have reinforced your dressing for home keep appointment on tuesday with your surgeon. Call them sooner for additional issues Prescriptions: No Action methotrexate (PF) 25 mg/0.5 mL auto-injector 25 mg subcut QWEEK Qty: 2 RF: 3 methotrexate sodium (PF) 25 mg/mL solution 25 mg subcut QWEEK 30 Days Qty: 4 RF: 3 (DME) Monoject TB Safety Syringe 1 mL 28 gauge x 1/2 syringe See Rx Instructions .ROUTE .MEDSUPPLY Qty: 50 RF: 1 alcohol swabs [Alcohol Prep Pads] Pads, Medicated 2 pad topical .COMPLEX Qty: 100 RF: 3 (DME) adhesive bandage 1 bandage See Rx Instructions .ROUTE .MEDSUPPLY Qty: 20 RF: 5 Xeljanz XR 11 mg tablet extended release 24 hr 11 mg PO DAILY Qty: 30 RF: 3 benztropine 0.5 mg Tablet 0.5 mg PO DAILY RF: 0 sertraline 100 mg Tablet 100 mg PO DAILY RF: 0 folic acid 1 mg Tablet 1 mg PO DAILY RF: 0 risperidone 1 mg Tablet 1 mg PO DAILY RF: 0 gabapentin 400 mg Tablet 400 mg PO TID RF: 0 Eliquis 5 mg Tablet 5 mg PO BID RF: 0 hydroxychloroquine [Plaquenil] 200 mg tablet 200 mg PO BID Qty: 60 RF: 0 prednisone 10 mg tablet 10 mg PO DAILY Qty: 70 RF: 0 hydrocodone-acetaminophen [[place]] 5-325 mg tablet 1 tab PO Q8H PRN (Reason: pain) 30 Days Qty: 90 RF: 0 Referrals: Physician,Unknown [Primary Care Provider] - 2 days Interventions: ED Discharge Assessment Last Done: 06/09/20 16:26 Discharge Date/Time: 06/09/20 16:27 Print Language: Urdu
== END 2020-06-09 16:27 | disposition home or self-care (01) ==
PROVIDERS: Emergency Provider Emergency Medicine
DX: Z48.00 Encounter for change or removal of nonsurgical wound dressing (principal); Z79.899 Other long term (current) drug therapy; F17.200 Nicotine dependence, unspecified, uncomplicated; Z71.6 Tobacco abuse counseling; Z79.01 Long term (current) use of anticoagulants
CPT/HCPCS: 99283

== ENCOUNTER 2020-07-02 11:05 | Outpatient (REF) | payer MEDICAID, SELFPAY | END 2020-07-02 11:06 | disposition home or self-care (01) | LOC: HO.LAB 11:05 | PROVIDERS: Visit Provider Internal Medicine | DX: Z20.828 Contact with and (suspected) exposure to other viral communicable diseases (principal) | CPT/HCPCS: C9803; U0003 ==

== ENCOUNTER 2020-07-14 11:20 | Outpatient (REF) | payer MEDICAID, SELFPAY | END 2020-07-14 11:21 | disposition home or self-care (01) | LOC: HO.LAB 11:20 | PROVIDERS: PCP Emergency Medicine; Visit Provider Internal Medicine | DX: Z20.828 Contact with and (suspected) exposure to other viral communicable diseases (principal) | CPT/HCPCS: C9803; U0003 ==

== ENCOUNTER → 2020-07-15 09:30 | Outpatient (BNV) | payer MEDICAID, SELFPAY | PROVIDERS: Visit Provider Internal Medicine Medical Oncology | DX: I82.621 Acute embolism and thrombosis of deep veins of right upper extremity (principal); Z85.71 Personal history of Hodgkin lymphoma; E53.8 Deficiency of other specified B group vitamins | CPT/HCPCS: 99213; 99214 ==

== ENCOUNTER → 2020-07-16 10:43 | Outpatient (BNVA) | payer MEDICAID, SELFPAY | PROVIDERS: PCP Emergency Medicine; Visit Provider Student in an Organized Health Care Education/Training Program | DX: Z76.89 Persons encountering health services in other specified circumstances (principal) ==

== ENCOUNTER 2020-08-08 10:15 | Outpatient (REF) | payer MEDICAID, SELFPAY | END 2020-08-08 10:16 | disposition home or self-care (01) | LOC: HO.LAB 10:15 | PROVIDERS: Visit Provider Internal Medicine | DX: Z20.828 Contact with and (suspected) exposure to other viral communicable diseases (principal) | CPT/HCPCS: 36415; C9803; U0003 ==

== ENCOUNTER 2020-08-08 16:48 | Outpatient (REF) | payer MEDICAID, SELFPAY ==
--- NOTE | 2020-08-08 | US_ITS ---
EXAMINATION: US VENOUS WITH DOPPLER UPPER EXTREMITY, RIGHT CLINICAL INFORMATION: Right arm pain. Rule out DVT. COMPARISON: None TECHNIQUE: Ultrasound of the upper extremity is performed using compression sonography and color and pulse Doppler flow with assessment of augmentation of flow. There is also imaging and Doppler assessment of the jugular and subclavian veins. Spectral analysis with color-flow imaging is performed. FINDINGS: Respiratory variation, normal compression, and augmented flow are noted throughout the upper extremity including the axillary, brachial, cubital, and radial and ulnar veins. There is normal flow in the internal jugular and subclavian veins. There is no visible deep or superficial thrombophlebitis. If the patient's symptoms progress, a followup ultrasound in 5 -7 days might be of value to exclude proximal propagation from a nonvisualized distal arm vein. US/US venous duplex UE RT IMPRESSION: No DVT demonstrated in right upper extremity.
== END 2020-08-08 16:49 | disposition home or self-care (01) ==
LOC: HO.US 16:48
PROVIDERS: Visit Provider General Practice
DX: I82.621 Acute embolism and thrombosis of deep veins of right upper extremity (principal); M79.89 Other specified soft tissue disorders
CPT/HCPCS: 93971

== ENCOUNTER 2020-08-12 11:35 | Emergency (ER) | payer MEDICAID, SELFPAY ==
[2020-08-12 12:09] VITALS: BP 113/61; PULSE 69; RESP 18; TEMP 37; O2SAT 96; BMI 29.9
--- NOTE | 2020-08-12 13:04 | ED.EXTPRO ---
HPI - Extremity Problem General Chief complaint: Extremity Injury, Upper Stated complaint: one side paralysis Time Seen by Provider: 08/12/20 12:40 Source: patient Mode of arrival: ambulatory Limitations: no limitations History of Present Illness HPI Narrative: Woke up with right-sided neck pain 4 days ago and and has been shooting down the right arm now. Onset (ago): day(s) Pain Consistency: intermittent Location: right Radiation: other (States radiates down the arm and into the chest.) Relieving factors: immobilization Exacerbating factors: palpation Associated symptoms: denies other symptoms Related Data Home Medications Medication Instructions Recorded Confirmed apixaban [Eliquis] 5 mg PO BID 05/01/20 07/15/20 benztropine 0.5 mg PO DAILY 05/01/20 07/15/20 folic acid 1 mg PO DAILY 05/01/20 07/15/20 gabapentin 400 mg PO TID 05/01/20 07/15/20 risperidone 1 mg PO DAILY 05/01/20 07/15/20 sertraline 100 mg PO DAILY 05/01/20 07/15/20 Previous Rx's Medication Instructions Recorded prednisone 10 mg tablet 10 mg PO DAILY #70 tab 05/20/20 adhesive bandage 1 #20 ea 05/21/20 alcohol swabs 2 pad TOPICAL .COMPLEX #100 ea 05/21/20 naloxone 4 mg/actuation nasal spray 4 mg INTRANASAL Q2M PRN #2 ea 06/24/20 methotrexate sodium (PF) 25 mg/mL 25 mg SUBCUT QWEEK 30 Days #4 ml 07/16/20 injection solution syringe with needle, safety 1 mL #50 ea 07/16/20 28 gauge x 1/2 tofacitinib 11 mg tablet,extended 11 mg PO DAILY #30 tab 07/16/20 release 24 hr cyclobenzaprine 5 mg PO TID PRN #14 tab 08/12/20 Allergies Allergy/AdvReac Type Severity Reaction Status Date / Time almond [ALMONDS] Allergy Severe ANAPHYLAXIS Verified 08/12/20 12:14 adhesive tape [ADHESIVE TAPE] Allergy Intermediate RASH Verified 08/12/20 12:14 morphine [MORPHINE] Allergy Intermediate GI UPSET, Verified 08/12/20 12:14 difficulty breathing tramadol [TRAMADOL] AdvReac Unknown NAUSEA & Verified 08/12/20 12:14 VOMITING Review of Systems Review of Systems: Constitutional: No Weight loss, No Fever, No Chills, No Night Sweats, No Fatigue, No Malaise ENT/Mouth: No Hearing loss, No Ear Pain, No Nasal Congestion, No Sinus Pain, No Hoarseness, No sore throat, No Rhinorrhea, No Swallowing Difficulty Eyes: No Eye Pain, No Swelling, No Redness, No Foreign Body, No Discharge, No Vision Changes Cardiovascular: No Chest Pain, No SOB, No Dyspnea on Exertion, No Orthopnea, No Edema, No Palpitations Respiratory: No Cough, No Sputum, No Wheezing, No Smoke Exposure, No Dyspnea Gastrointestinal: No Nausea, No Vomiting, No Diarrhea, No Constipation, No abdominal Pain, No Hematochezia, No Melena Genitourinary: no irregular bleeding, No Dysuria, No Urinary Frequency, No Hematuria, No Urinary Incontinence, No Urgency, No Flank Pain Musculoskeletal: No joint pain, No Myalgias, No Joint Swelling Skin: No Skin Lesions, No rash Neuro: No Weakness, No Numbness, No Paresthesias, No Loss of Consciousness, No Dizziness, No Headache Psych: No Social Issues Heme/Lymph: No Bruising, No Bleeding,No Lymphadenopathy Endocrine: No Polyuria, No Polydipsia, No Temperature Intolerance Yes all other systems are reviewed and are negative PMFSH Past Medical History Medical History Acute arthritis Bleeding hemorrhoid Chronic GERD De Quervain's disease (tenosynovitis) Degeneration of intervertebral disc at C4-C5 level Degeneration, intervertebral disc, lumbar Depressive disorder Esophageal dysphagia Fibromyalgia Frequency-urgency syndrome Gallstones Hodgkin disease Nocturia Osteoarthritis of spine with radiculopathy, lumbar region Rheumatoid arthritis involving multiple sites Seropositive rheumatoid arthritis Stress incontinence in female Systemic lupus erythematosus Urgency-frequency syndrome Vitamin D deficiency Surgical History History of esophagogastroduodenoscopy (EGD) History of lymph node dissection of left axilla History of repair of inguinal hernia Social History Social History Alcohol intake: never Smoking Status: Current every day smoker Advance Directives: No Advance Directives Information Provided: No Physical Exam Vital Signs: Vital Signs: Last Vital Signs Temp 98.5 F 08/12/20 15:33 Pulse 64 08/12/20 15:33 Resp 16 08/12/20 15:33 BP 130/69 08/12/20 15:33 Pulse Ox 99 08/12/20 15:33 Body Mass Index 29.9 Reviewed Const: General: cooperative and healthy appearing; No acute distress or intoxicated appearing Nutritional Appearance: average body habitus Orientation/consciousness: patient oriented x3 HENMT: Head: Yes normal to inspection Head images: 1. Tender palpation, negative Spurling, no rash or swelling. 2. 3. Ears: hearing grossly normal bilaterally Eyes: General: appearance normal, both eyes and all related structures Visual Ramirez: normal visual ramirez by confrontation Neck: Neck: Yes normal visual inspection, No positive Brudzinski's sign, No positive Kernig's sign and No tender Thyroid: Thyroid normal Chest: Chest palpation & inspection: normal inspection of the chest Resp: Effort & Inspection: normal respiratory effort Auscultation: clear to auscultation bilaterally Cardio: Jugular venous distension: no JVD Rate: regular rate Rhythm: regular rhythm Heart sounds: S1 normal heart sound present and S2 normal heart sound present GI: Inspection: Yes normal to inspection Percussion: Yes normal to percussion Auscultation: normal bowel sounds : General: Yes no CVA tenderness Back/Spine/Pelvis: Back: no CVA tenderness Skin: General skin exam: no rashes or lesions noted Neuro: General: patient oriented x3 Extrem: General: Yes normal to inspection Course Course Course Narrative: Workup essentially unremarkable. Feels better from muscle relaxants will discharge with lidocaine/Flexeril and outpatient follow-up. Neurovascular intact. Outpatient ultrasound done 2 days ago negative. MDM - Extremity (Nontraumatic) Medical Records Attestation: I reviewed the patient's medical records. Medical records narrative: Patient had ultrasound 08/08/2020 of right upper extremity US/US venous duplex UE RT IMPRESSION: No DVT demonstrated in right upper extremity Lab Data Result diagrams: 08/12/20 13:48 08/12/20 13:48 Labs: Lab Results 08/12/20 08/12/20 08/12/20 Range/Units 13:48 13:48 13:48 WBC 5.6 (4.8-10.8) X10*3/uL RBC 3.55 L (4.20-5.50) X10*6/uL Hgb 11.3 L (12.0-16.0) g/dl Hct 34.9 L (37-47) % MCV 98.3 H (80-98) fL MCH 31.8 (27.0-33.0) pg MCHC 32.4 (31.0-35.0) g/dl RDW 14.3 (11.0-16.0) % Plt Count 285 (160-400) X10*3/uL MPV 9.8 (9.4-12.3) fL Immature Gran % (Auto) 0.2 (0.0-0.4) % Neut % (Auto) 56.0 (45-73) % Lymph % (Auto) 37.1 (20-40) % [place] % (Auto) 5.4 (2-11) % Eos % (Auto) 0.9 (0-4) % Baso % (Auto) 0.4 (0-2) % Lymph # (Auto) 2.1 (1.2-4.9) X10*3/uL [place] # (Auto) 0.3 (0.1-1.2) X10*3/uL Eos # (Auto) 0.1 (0.0-0.4) X10*3/uL Baso # (Auto) 0.0 (0.0-0.2) X10*3/uL Abs Immat Gran (auto) 0.01 (0.00-0.03) X10*3/uL Absolute Neuts (auto) 3.1 (2.0-8.3) X10*3/uL Absolute Nucleated RBC 0.000 (0.0-0.012) X10*3/uL Nucleated RBC % (auto) 0.0 (0.0-0.2) /100WBC PT 12.1 (10.8-13.0) SEC INR 1.0 (0.9-1.1) APTT 29.0 (24.1-38.0) SEC Sodium 139 (135-145) mmol/L Potassium 4.2 (3.3-5.1) mmol/l Chloride 104 (96-108) mmol/L Carbon Dioxide 26 (22-29) mmol/L Anion Gap 13 (12-20) BUN 10 (9-16) mg/dL Creatinine 0.69 (0.5-1.4) mg/dL Estim Creat Clear Calc 113.6 Estimated GFR > 60 Random Glucose 83 (60-115) mg/dL Calcium 9.2 D (8.4-10.2) mg/dL Total Bilirubin 0.3 (0.0-1.0) mg/dL AST 14 (5-31) U/L ALT 11 (0-31) U/L Alkaline Phosphatase 65 (39-117) U/L Troponin I High Sens (<3.5-17.0) ng/L Total Protein 8.6 H (6.5-8.0) g/dL Albumin 4.0 (3.5-5.0) g/dL 08/12/20 Range/Units 13:48 WBC (4.8-10.8) X10*3/uL RBC (4.20-5.50) X10*6/uL Hgb (12.0-16.0) g/dl Hct (37-47) % MCV (80-98) fL MCH (27.0-33.0) pg MCHC (31.0-35.0) g/dl RDW (11.0-16.0) % Plt Count (160-400) X10*3/uL MPV (9.4-12.3) fL Immature Gran % (Auto) (0.0-0.4) % Neut % (Auto) (45-73) % Lymph % (Auto) (20-40) % [place] % (Auto) (2-11) % Eos % (Auto) (0-4) % Baso % (Auto) (0-2) % Lymph # (Auto) (1.2-4.9) X10*3/uL [place] # (Auto) (0.1-1.2) X10*3/uL Eos # (Auto) (0.0-0.4) X10*3/uL Baso # (Auto) (0.0-0.2) X10*3/uL Abs Immat Gran (auto) (0.00-0.03) X10*3/uL Absolute Neuts (auto) (2.0-8.3) X10*3/uL Absolute Nucleated RBC (0.0-0.012) X10*3/uL Nucleated RBC % (auto) (0.0-0.2) /100WBC PT (10.8-13.0) SEC INR (0.9-1.1) APTT (24.1-38.0) SEC Sodium (135-145) mmol/L Potassium (3.3-5.1) mmol/l Chloride (96-108) mmol/L Carbon Dioxide (22-29) mmol/L Anion Gap (12-20) BUN (9-16) mg/dL Creatinine (0.5-1.4) mg/dL Estim Creat Clear Calc Estimated GFR Random Glucose (60-115) mg/dL Calcium (8.4-10.2) mg/dL Total Bilirubin (0.0-1.0) mg/dL AST (5-31) U/L ALT (0-31) U/L Alkaline Phosphatase (39-117) U/L Troponin I High Sens < 3.5 (<3.5-17.0) ng/L Total Protein (6.5-8.0) g/dL Albumin (3.5-5.0) g/dL Imaging Data Chest x-ray: Radiologist's impression: [place] [id number] XRay Report Signed Patient: Ginette ArceoMR#: [id number] : 1975Acct:[id number] Age/Sex: 45 / FADM Date: 08/12/20 Loc: .ED Attending Dr: Ordering Physician: Kee Montoya NP Date of Service: 08/12/20 Procedure(s): XR chest 1V Accession Number(s): [id number] cc: 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 COMPARISON: Most recent chest radiograph dated 12/26/2019. TECHNIQUE: Frontal view of the chest was obtained. FINDINGS: No focal airspace consolidation. No pleural effusion or pneumothorax. Stable cardiomediastinal silhouette. Right axillary surgical clips. XR/XR chest 1V IMPRESSION: No acute cardiopulmonary findings. 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 Hand: Discharge Plan Discharge Clinical Impression: Cervical radiculopathy, Acute cervical myofascial strain Patient Disposition: Home, Self-Care Instructions: Cervical Strain (ED), Cervical Radiculopathy (ED) Additional Instructions: Your blood work was overall stable Her chest x-ray did not show any acute findings The ultrasound of the right upper extremity was negative for DVT Her symptoms are more consistent with a muscle strain Take the muscle relaxants as discussed Warm compresses Gentle stretching Take medication prescribed Return if any concerns or worsening symptoms otherwise follow up with primary care doctor as discussed Thank you Prescriptions: New cyclobenzaprine 5 mg tablet 5 mg PO TID PRN (Reason: muscle spasm) Qty: 14 RF: 0 No Action alcohol swabs [Alcohol Prep Pads] Pads, Medicated 2 pad topical .COMPLEX Qty: 100 RF: 3 (DME) adhesive bandage 1 bandage See Rx Instructions .ROUTE .MEDSUPPLY Qty: 20 RF: 5 Narcan 4 mg/actuation spray,non-aerosol 4 mg intranasal Q2M PRN (Reason: opioid overdose) Qty: 2 RF: 0 benztropine 0.5 mg Tablet 0.5 mg PO DAILY RF: 0 sertraline 100 mg Tablet 100 mg PO DAILY RF: 0 folic acid 1 mg Tablet 1 mg PO DAILY RF: 0 risperidone 1 mg Tablet 1 mg PO DAILY RF: 0 gabapentin 400 mg Tablet 400 mg PO TID RF: 0 Eliquis 5 mg Tablet 5 mg PO BID RF: 0 prednisone 10 mg tablet 10 mg PO DAILY Qty: 70 RF: 0 methotrexate sodium (PF) 25 mg/mL solution 25 mg subcut QWEEK 30 Days Qty: 4 RF: 3 (DME) Monoject TB Safety Syringe 1 mL 28 gauge x 1/2 syringe See Rx Instructions .ROUTE .MEDSUPPLY Qty: 50 RF: 1 Xeljanz XR 11 mg tablet extended release 24 hr 11 mg PO DAILY Qty: 30 RF: 3 Referrals: [facility] [Primary Care Provider] - 1 week
--- NOTE | 2020-08-12 13:12 | XR_ITS ---
EXAMINATION: XR CHEST CLINICAL INFORMATION: Chest pain. COMPARISON: Most recent chest radiograph dated 12/26/2019. TECHNIQUE: Frontal view of the chest was obtained. FINDINGS: No focal airspace consolidation. No pleural effusion or pneumothorax. Stable cardiomediastinal silhouette. Right axillary surgical clips. XR/XR chest 1V IMPRESSION: No acute cardiopulmonary findings.
[2020-08-12 13:54] LABS: MANUAL DIFF FLAG NO
[2020-08-12] MEDS: Cyclobenzaprine HCl 5 MG TABLET PO (14:01)
[2020-08-12] MEDS: Lidocaine 4 % Patch ADH..PATCH 1 PATCH TRANSDERMA (14:01)
[2020-08-12 14:03] LABS: Basophils Percent Auto 0.4 % (0-2); Eosinophils Absolute Auto 0.1 X10*3/uL (0.0-0.4); Eosinophils Percent Auto 0.9 % (0-4); Hematocrit 34.9 % (37-47); Hemoglobin 11.3 g/dl (12.0-16.0); Imm Gran Abs Auto 0.01 X10*3/uL (0.00-0.03); Imm Gran Pct Auto 0.2 % (0.0-0.4); Lymphocytes Absolute Auto 2.1 X10*3/uL (1.2-4.9); Lymphocytes Percent Auto 37.1 % (20-40); Mean Corpuscular HGB Conc 32.4 g/dl (31.0-35.0); Mean Corpuscular Hemoglobin 31.8 pg (27.0-33.0); Mean Corpuscular Volume 98.3 fL (80-98); Mean Platelet Volume 9.8 fL (9.4-12.3); Monocytes Absolute Auto 0.3 X10*3/uL (0.1-1.2); Monocytes Percent Auto 5.4 % (2-11); Neutrophils Absolute Auto 3.1 X10*3/uL (2.0-8.3); Platelet Count 285 X10*3/uL (160-400); Red Blood Count 3.55 X10*6/uL (4.20-5.50); Red Cell Distribution Width 14.3 % (11.0-16.0); White Blood Count 5.6 X10*3/uL (4.8-10.8)
[2020-08-12 14:08] VITALS: BP 134/67; PULSE 61; RESP 20; O2SAT 96
[2020-08-12 14:15] LABS: Prothrombin Time 12.1 SEC (10.8-13.0)
[2020-08-12 14:28] LABS: Troponin-I High Sensitivity < 3.5 ng/L (<3.5-17.0)
[2020-08-12 14:29] LABS: Alanine Aminotransferase 11 U/L (0-31); Alkaline Phosphatase 65 U/L (39-117); Anion Gap 13 (12-20); Aspartate Amino Transferase 14 U/L (5-31); Bilirubin Total 0.3 mg/dL (0.0-1.0); Blood Urea Nitrogen 10 mg/dL (9-16); Calcium 9.2 mg/dL (8.4-10.2); Carbon Dioxide 26 mmol/L (22-29); Chloride 104 mmol/L (96-108); Creatinine Clr Calc Pharmacy 113.6; Estimated Glomerular Filt Rate > 60; Glucose Random 83 mg/dL (60-115); Potassium 4.2 mmol/l (3.3-5.1); Sodium 139 mmol/L (135-145); Total Protein 8.6 g/dL (6.5-8.0)
[2020-08-12 15:33] VITALS: BP 130/69; PULSE 64; RESP 16; TEMP 36.9; O2SAT 99
--- NOTE | 2020-08-13 07:30 | ECG_ITS ---
Test Reason : PAIN ON LEFT SIDE Blood Pressure : / mmHG Vent. Rate : 061 BPM Atrial Rate : 061 BPM P-R Int : 172 ms QRS Dur : 102 ms QT Int : 424 ms P-R-T Axes : 054 -38 035 degrees QTc Int : 426 ms Normal sinus rhythm Left axis deviation Moderate voltage criteria for LVH, may be normal variant Cannot rule out Septal infarct (cited on or before 23-OCT-2019) Abnormal ECG When compared with ECG of 11-FEB-2020 10:23, Nonspecific T wave abnormality has replaced inverted T waves in Inferior leads Referred By: Kee Montoya Electronically Signed By:OLGA KINGSTON MD
== END 2020-08-12 16:27 | disposition home or self-care (01) ==
PROVIDERS: Nurse Practitioner Primary Care; Emergency Provider Emergency Medicine Emergency Medical Services
DX: S16.1XXA Strain of muscle, fascia and tendon at neck level, initial encounter (principal); M54.12 Radiculopathy, cervical region; X58.XXXA Exposure to other specified factors, initial encounter; Y93.9 Activity, unspecified; Y92.9 Unspecified place or not applicable; Z79.899 Other long term (current) drug therapy; Y99.9 Unspecified external cause status
CPT/HCPCS: 36415; 71045; 80053; 84484; 85025; 85610; 85730; 93005; 99284

== ENCOUNTER 2020-08-15 08:22 | Outpatient (REF) | payer MEDICAID, SELFPAY ==
[2020-08-15 10:27] LABS: MANUAL DIFF FLAG NO
[2020-08-15 10:44] LABS: Basophils Percent Auto 0.2 % (0-2); Eosinophils Absolute Auto 0.1 X10*3/uL (0.0-0.4); Eosinophils Percent Auto 1.5 % (0-4); Hematocrit 36.5 % (37-47); Hemoglobin 11.8 g/dl (12.0-16.0); Imm Gran Abs Auto 0.01 X10*3/uL (0.00-0.03); Imm Gran Pct Auto 0.2 % (0.0-0.4); Lymphocytes Absolute Auto 1.8 X10*3/uL (1.2-4.9); Lymphocytes Percent Auto 33.3 % (20-40); Mean Corpuscular HGB Conc 32.3 g/dl (31.0-35.0); Mean Corpuscular Hemoglobin 31.4 pg (27.0-33.0); Mean Corpuscular Volume 97.1 fL (80-98); Monocytes Absolute Auto 0.4 X10*3/uL (0.1-1.2); Monocytes Percent Auto 6.7 % (2-11); Neutrophils Absolute Auto 3.2 X10*3/uL (2.0-8.3); Neutrophils Percent Auto 58.1 % (45-73); Platelet Count 301 X10*3/uL (160-400); Red Blood Count 3.76 X10*6/uL (4.20-5.50); White Blood Count 5.4 X10*3/uL (4.8-10.8)
[2020-08-15 11:19] LABS: Alanine Aminotransferase 11 U/L (0-31); Albumin Level 4.3 g/dL (3.5-5.0); Alkaline Phosphatase 67 U/L (39-117); Anion Gap 12 (12-20); Aspartate Amino Transferase 14 U/L (5-31); Bilirubin Total 0.3 mg/dL (0.0-1.0); Blood Urea Nitrogen 12 mg/dL (9-16); C Reactive Protein 0.48 mg/dL (< or = 0.50); Calcium 9.3 mg/dL (8.4-10.2); Carbon Dioxide 24 mmol/L (22-29); Chloride 105 mmol/L (96-108); Cholesterol 210 mg/dL; Estimated Glomerular Filt Rate > 60; Glucose Random 95 mg/dL (60-115); HDL Cholesterol 46 mg/dL; LDL Cholesterol Calculated 147 mg/dl; Potassium 4.3 mmol/l (3.3-5.1); Sodium 137 mmol/L (135-145); Total Protein 9.1 g/dL (6.5-8.0); Triglycerides 89 mg/dL
[2020-08-15 11:55] LABS: Erythrocyte Sedimentation Rate 77 MM/HR (0-20)
[2020-08-15 12:25] LABS: Reflex LDLD? No
[2020-08-15 14:08] LABS: Glucose Urine UA NEG (NEG); Leukocyte Esterase Urine NEG (NEG); Nitrite Urine NEG (NEG); PH 5.5 (5.0-8.0); Specific Gravity - Urine >= 1.030 (1.005-1.025); Urine Blood 1+ (NEG); Urine Ketones NEG (NEG); Urine Protein NEG (NEG-TRACE)
[2020-08-15 14:22] LABS: Appearance Urine HAZY; Color Urine YELLOW
[2020-08-15 15:14] LABS: Bacteria Urine TRACE /LPF; RBC Urine 0-2 /HPF (0); Squamous Epithelial Cell Urine 3+ /LPF; WBC Urine 0-2 /HPF (0-4)
[2020-08-16 14:02] LABS: Anti DNA DS Antibody 2 IU/mL
[2020-08-18 13:03] LABS: Complement C3 93 mg/dL (83-193)
== END 2020-08-15 08:23 | disposition home or self-care (01) ==
LOC: HO.LAB 08:22
PROVIDERS: PCP Emergency Medicine; Visit Provider Student in an Organized Health Care Education/Training Program
DX: M05.9 Rheumatoid arthritis with rheumatoid factor, unspecified (principal); M32.9 Systemic lupus erythematosus, unspecified; Z79.899 Other long term (current) drug therapy
CPT/HCPCS: 36415; 80053; 80061; 81001; 85025; 85652; 86140; 86160; 86225; 99212

== ENCOUNTER 2020-08-29 13:36 | Outpatient (REF) | payer MEDICAID, SELFPAY ==
--- NOTE | 2020-08-29 | US_ITS ---
EXAMINATION: US VENOUS ULTRASOUND WITH DOPPLER LOWER EXTREMITY, RIGHT CLINICAL INFORMATION: Right knee and leg pain with swelling. COMPARISON: None TECHNIQUE: Ultrasound of the deep veins is performed from the hip to the calf with compression sonography and color and pulse Doppler assessment. Spectral analysis with color-flow imaging is performed. FINDINGS: There is normal venous compression and respiratory variation and augmented flow. The visualized common femoral vein, superficial femoral vein, profunda femoral vein, popliteal vein, and the trifurcation region shows no evidence of deep venous thrombosis. There is no significant popliteal fossa cyst. US/US venous duplex LE RT IMPRESSION: No evidence of DVT right lower extremity.
--- NOTE | 2020-08-29 | US_ITS ---
EXAMINATION: US VENOUS WITH DOPPLER UPPER EXTREMITY, RIGHT. CLINICAL INFORMATION: Right upper extremity pain and swelling. COMPARISON: None TECHNIQUE: Ultrasound of the upper extremity is performed using compression sonography and color and pulse Doppler flow with assessment of augmentation of flow. There is also imaging and Doppler assessment of the jugular and subclavian veins. Spectral analysis with color-flow imaging is performed. FINDINGS: The right upper extremity veins are very small in caliber and barely visible visible. Visualized right internal jugular vein is patent. Patient has a dominant left jugular vein and is left handed. The right subclavian vein, basilic vein are small but patent. The cephalic venous more dominant and widely patent. The right brachial vein and right axillary vein are small caliber but patent. US/US venous duplex UE RT IMPRESSION: Small caliber right upper extremity veins but patent. Nondominant right jugular vein is patent. The soft tissues are normal.
== END 2020-08-29 13:37 | disposition home or self-care (01) ==
LOC: HO.US 13:36
PROVIDERS: Visit Provider General Practice
DX: M79.662 Pain in left lower leg (principal); M79.622 Pain in left upper arm; M25.562 Pain in left knee; M79.89 Other specified soft tissue disorders; I82.621 Acute embolism and thrombosis of deep veins of right upper extremity
CPT/HCPCS: 93971

== ENCOUNTER → 2020-09-11 10:52 | Outpatient (BNVA) | payer MEDICAID, SELFPAY | PROVIDERS: PCP Emergency Medicine; Visit Provider Student in an Organized Health Care Education/Training Program ==

== ENCOUNTER 2020-09-22 10:33 | Emergency (ER) | payer MEDICAID, SELFPAY ==
[2020-09-22 11:40] VITALS: PULSE 68; RESP 18; TEMP 36.8; O2SAT 99; BMI 29.0
== END 2020-09-22 13:19 | disposition left against medical advice (07) ==
PROVIDERS: Emergency Provider Emergency Medicine
DX: M25.50 Pain in unspecified joint (principal); M79.7 Fibromyalgia; M65.4 Radial styloid tenosynovitis [de Quervain]; L93.0 Discoid lupus erythematosus; M06.89 Other specified rheumatoid arthritis, multiple sites
CPT/HCPCS: 99282; 99283

== ENCOUNTER 2020-09-23 08:15 | Emergency (ER) | payer MEDICAID, SELFPAY ==
--- NOTE | ~2020-09-23 | US_ITS ---
EXAMINATION: US VENOUS ULTRASOUND WITH DOPPLER LOWER EXTREMITY, RIGHT CLINICAL INFORMATION: Pain COMPARISON: Previous exam most recent 08/29/2020 TECHNIQUE: Ultrasound of the deep veins is performed from the hip to the calf with compression sonography and color and pulse Doppler assessment. Spectral analysis with color-flow imaging is performed. FINDINGS: There is normal venous compression and respiratory variation and augmented flow. The visualized common femoral vein, superficial femoral vein, profunda femoral vein, popliteal vein, and the trifurcation region shows no evidence of deep venous thrombosis. There is no significant popliteal fossa cyst. US/US venous duplex LE RT IMPRESSION: No DVT demonstrated in the right lower extremity.
--- NOTE | ~2020-09-23 | CT_ITS ---
EXAMINATION: CT CHEST WITHOUT CONTRAST CLINICAL INFORMATION: Chest wall tenderness COMPARISON: Previous chest x-rays most recent 08/12/2020, CTA of the chest September 2019. TECHNIQUE: Multidetector volumetric CT imaging of the chest was done. Axial MIP volume rendering provided. Sagittal and coronal reformatted images were obtained. This CT examination was performed using dose optimization techniques as appropriate, variously including the following: *Automated exposure control *Adjustment of mA and/or kV according to patient size (this includes techniques or standardized protocols for targeted exams where dose is matched to indication/reason for exam; i.e. extremities or head) *Use of iterative reconstruction technique DLP: 369 mGy-cm FINDINGS: LUNGS: There is evidence of mild paraseptal emphysema. Lungs are clear. MEDIASTINUM: The visualized thyroid gland is unremarkable. There is mediastinal and bilateral hilar lymphadenopathy. There is a large calcified left hilar lymph node that is stable. Largest mediastinal lymph nodes are right paratracheal lymph nodes that are upper normal in size measuring 1 cm. There is a prominent soft tissue seen in the anterior superior mediastinum questionable for thymic hyperplasia versus a thymic lesion or lymphadenopathy. This is unchanged. The heart does not appear enlarged. There is no pericardial effusion. PLEURA: There is no pleural effusion. No pleural mass or thickening. AXILLA: There are surgical clips in the right axilla. There are small bilateral axillary lymph nodes. These appear increased from September 2019 exam. No chest wall mass is seen. There are chest wall collateral vessels. UPPER ABDOMEN: The gallbladder has been removed. There is a small left renal stone. OSSEOUS STRUCTURES: There are mild degenerative changes of the thoracic spine. No fracture or bone lesion is seen. CT/CT chest wo con IMPRESSION: No evidence for acute disease in the chest. Stable mediastinal and hilar lymphadenopathy and question thymic hyperplasia from previous exams. Small bilateral axillary lymph nodes. These do not appear enlarged but are increased from September 2019 chest CTA.
--- NOTE | 2020-09-23 08:39 | ED.GENADULT ---
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 as lymphome currently receiving injections c/o chronic R knee pain, pain on chest wall and in both arms - all the pain is if you touch her muscles or if she moves, no other complaints the patient was doing well but states due to covid she missed her july pain clinic appointment for pill count since then has been off oxycodone complaint: body pain Onset (ago): day(s) (several ) Location: chest and lower extremity Radiation: non-radiation Severity: similar to prior episodes Quality: aching Pain Consistency: constant Relieving factors: none Exacerbating factors: movement Associated symptoms: denies other symptoms Treatments prior to arrival: none Related Data Home Medications Medication Instructions Recorded Confirmed apixaban [Eliquis] 5 mg PO BID 05/01/20 07/15/20 benztropine 0.5 mg PO DAILY 05/01/20 07/15/20 folic acid 1 mg PO DAILY 05/01/20 07/15/20 gabapentin 400 mg PO TID 05/01/20 07/15/20 risperidone 1 mg PO DAILY 05/01/20 07/15/20 sertraline 100 mg PO DAILY 05/01/20 07/15/20 Previous Rx's Medication Instructions Recorded prednisone 10 mg tablet 10 mg PO DAILY #70 tab 05/20/20 adhesive bandage 1 #20 ea 05/21/20 alcohol swabs 2 pad TOPICAL .COMPLEX #100 ea 05/21/20 naloxone 4 mg/actuation nasal spray 4 mg INTRANASAL Q2M PRN #2 ea 06/24/20 methotrexate sodium (PF) 25 mg/mL 25 mg SUBCUT QWEEK 30 Days #4 ml 07/16/20 injection solution syringe with needle, safety 1 mL #50 ea 07/16/20 28 gauge x 1/2 cyclobenzaprine 5 mg PO TID PRN #14 tab 08/12/20 hydroxychloroquine 200 mg tablet 200 mg PO DAILY #30 tab 08/15/20 sarilumab 200 mg/1.14 mL 200 mg SUBCUT Q2W #2.28 ml 01/15/21 subcutaneous pen injector oxycodone 5 mg PO Q4H PRN #14 tab 09/23/20 Allergies Allergy/AdvReac Type Severity Reaction Status Date / Time almond [ALMONDS] Allergy Severe ANAPHYLAXIS Verified 09/22/20 11:50 adhesive tape [ADHESIVE TAPE] Allergy Intermediate RASH Verified 09/22/20 11:50 morphine [MORPHINE] Allergy Intermediate GI UPSET, Verified 09/22/20 11:50 difficulty breathing tramadol [TRAMADOL] AdvReac Unknown NAUSEA & Verified 09/22/20 11:50 VOMITING Review of Systems Review of Systems: Constitutional : No Weight loss, No Fever, No Chills ENT/Mouth : No sore throat, No Rhinorrhea Eyes: No Eye Pain, No Swelling Cardiovascular : pos Chest Pain, noSOB, no Dyspnea on Exertion, No Orthopnea, No Edema, No Palpitations Respiratory : No Cough, No Sputum Gastrointestinal : no Nausea, No Vomiting, No Diarrhea, No abdominal Pain, No Hematochezia, No Melena Genitourinary : No Dysuria, No Urinary Frequency Musculoskeletal : pos joint pain, pos Myalgias, No Joint Swelling Skin : No Skin Lesions, No rash Neuro : No Weakness, No Numbness, No Dizziness, No Headache Psych : No Anxiety/Panic, No Depression Heme/Lymph: No Bruising, No Lymphadenopathy Endocrine : No Polyuria, No Polydipsia All other systems reviewed and are negative [facility] Past Medical History Medical History Acute arthritis Bleeding hemorrhoid Chronic GERD De Quervain's disease (tenosynovitis) Degeneration of intervertebral disc at C4-C5 level Degeneration, intervertebral disc, lumbar Depressive disorder Esophageal dysphagia Fibromyalgia Frequency-urgency syndrome Gallstones Hodgkin disease Nocturia Osteoarthritis of spine with radiculopathy, lumbar region Rheumatoid arthritis involving multiple sites Seropositive rheumatoid arthritis Stress incontinence in female Systemic lupus erythematosus Urgency-frequency syndrome Vitamin D deficiency Surgical History History of esophagogastroduodenoscopy (EGD) History of lymph node dissection of left axilla History of repair of inguinal hernia Social History Social History Alcohol intake: never Smoking Status: Light tobacco smoker Smoked in Last 30 Days: Yes Use of substances other than those prescribed or required for medical reasons: Yes Substance Use Type: Marijuana Advance Directives: No Advance Directives Information Provided: No Physical Exam Vital Signs: Vital Signs: Last Vital Signs Pulse 65 09/23/20 10:39 Resp 20 09/23/20 10:39 BP 103/57 L 09/23/20 10:39 Pulse Ox 97 09/23/20 10:39 Body Mass Index 31.6 Appearance: Alert. Oriented X3. No acute distress. Eyes: Pupils equal, round and reactive to light. ENT: Pharynx normal. Neck: Normal inspection. Neck supple. CVS: Normal heart rate and rhythm. Pulses normal. reproduceable CWP across sternum and clavicles Respiratory: No respiratory distress. Breath sounds normal. Abdomen: Soft and nontender. Skin: Skin warm and dry. Normal skin color. Normal skin turgor. Extremities: No lower extremity edema. No calf ttp no sig mass or signs of infection in either axilla, c/o pain in R knee but no swelilng no rash, distal NV intact Neuro: Oriented X 3. No motor deficit. No sensory deficit. Course Course Course Narrative: no acute findings at this time, stable for DC will encourage return to PCP or pain management for pain control - patient states that she has no pain medications at home and her PCP does not prescribe it, short course ordered called by pharmacy after the patient left and they note she filled 30 days of hydrocodone on 09/18 the patient was not truthful during her visit and told providers that she has no narcotics and did not get any prescriptions since her last pain management appointment Medical Decision Making MDM Narrative Medical decision making narrative: 45yo female with multiple medical problems including difficult to treatment pain was doing well with pain management unfortunately was released due to missing appointments she states since then has not been taking pain medications, she comes in with c/o R leg pain - DVT study ordered, no signs of trauma/swelling or infection NV intact, c/o reproduceable CWP - her axilla do not appear infection, pain is all MSK I do not suspect ACS or PE at this time, CT chest for mass ordered Discharge Plan Discharge Clinical Impression: Chronic pain syndrome Patient Disposition: Home, Self-Care Instructions: Chronic Pain (ED) Additional Instructions: return to ED for any worsening symptoms or concerns PLEASE FOLLOW UP WITH YOUR PAIN CONTROL PROVIDER OR PCP SOON POSSIBLE Prescriptions: New oxycodone 5 mg tablet 5 mg PO Q4H PRN (Reason: pain) Qty: 14 RF: 0 No Action alcohol swabs [Alcohol Prep Pads] Pads, Medicated 2 pad topical .COMPLEX Qty: 100 RF: 3 (DME) adhesive bandage 1 bandage See Rx Instructions .ROUTE .MEDSUPPLY Qty: 20 RF: 5 Narcan 4 mg/actuation spray,non-aerosol 4 mg intranasal Q2M PRN (Reason: opioid overdose) Qty: 2 RF: 0 cyclobenzaprine 5 mg tablet 5 mg PO TID PRN (Reason: muscle spasm) Qty: 14 RF: 0 benztropine 0.5 mg Tablet 0.5 mg PO DAILY RF: 0 sertraline 100 mg Tablet 100 mg PO DAILY RF: 0 folic acid 1 mg Tablet 1 mg PO DAILY RF: 0 risperidone 1 mg Tablet 1 mg PO DAILY RF: 0 gabapentin 400 mg Tablet 400 mg PO TID RF: 0 Eliquis 5 mg Tablet 5 mg PO BID RF: 0 prednisone 10 mg tablet 10 mg PO DAILY Qty: 70 RF: 0 methotrexate sodium (PF) 25 mg/mL solution 25 mg subcut QWEEK 30 Days Qty: 4 RF: 3 (DME) Monoject TB Safety Syringe 1 mL 28 gauge x 1/2 syringe See Rx Instructions .ROUTE .MEDSUPPLY Qty: 50 RF: 1 hydroxychloroquine [Plaquenil] 200 mg tablet 200 mg PO DAILY Qty: 30 RF: 4 Kevzara 200 mg/1.14 mL pen injector 200 mg subcut Q2W Qty: 2.28 RF: 3 Referrals: [facility] [Primary Care Provider] - 2 days Interventions: ED Discharge Assessment Last Done: 09/23/20 11:26 Discharge Date/Time: 09/23/20 11:15 Print Language: Martiniquais
[2020-09-23 08:49] VITALS: BP 119/56; PULSE 68; RESP 16; O2SAT 98; BMI 31.6
[2020-09-23] MEDS: oxyCODONE HCl Immed Release 5 MG TABLET 10 MG PO (09:01)
[2020-09-23 10:39] VITALS: BP 103/57; PULSE 65; RESP 20; O2SAT 97
--- NOTE | 2020-09-23 10:40 | PC.NURSE ---
pt reports pain has slightly decreased since medicated, but rates pain level at 10/10. pt telling RN she takes 10mg of her pain medication at home. informed patient she was given 10mg oxycodone.
== END 2020-09-23 11:15 | disposition home or self-care (01) ==
PROVIDERS: Emergency Provider Emergency Medicine
DX: G89.4 Chronic pain syndrome (principal); M25.561 Pain in right knee; M79.7 Fibromyalgia; M65.4 Radial styloid tenosynovitis [de Quervain]; C81.90 Hodgkin lymphoma, unspecified, unspecified site; M06.89 Other specified rheumatoid arthritis, multiple sites; F17.210 Nicotine dependence, cigarettes, uncomplicated; F12.90 Cannabis use, unspecified, uncomplicated
CPT/HCPCS: 71250; 93971; 99284

== ENCOUNTER 2020-09-30 12:58 | Outpatient (REF) | payer MEDICAID, SELFPAY ==
[2020-09-30 14:28] LABS: Glucose Urine UA NEG (NEG); Leukocyte Esterase Urine NEG (NEG); Nitrite Urine NEG (NEG); PH 5.5 (5.0-8.0); Specific Gravity - Urine 1.025 (1.005-1.025); Urine Blood 2+ (NEG); Urine Ketones NEG (NEG); Urine Protein NEG (NEG-TRACE)
[2020-09-30 14:29] LABS: Appearance Urine HAZY; Color Urine YELLOW
[2020-09-30 14:31] LABS: Basophils Percent Auto 0.2 % (0-2); Eosinophils Absolute Auto 0.1 X10*3/uL (0.0-0.4); Eosinophils Percent Auto 1.3 % (0-4); Hemoglobin 11.1 g/dl (12.0-16.0); Imm Gran Abs Auto 0.01 X10*3/uL (0.00-0.03); Imm Gran Pct Auto 0.2 % (0.0-0.4); Lymphocytes Absolute Auto 3.1 X10*3/uL (1.2-4.9); Lymphocytes Percent Auto 66.4 % (20-40); MANUAL DIFF FLAG SCAN; Mean Corpuscular HGB Conc 33.6 g/dl (31.0-35.0); Mean Corpuscular Hemoglobin 32.5 pg (27.0-33.0); Mean Corpuscular Volume 96.5 fL (80-98); Monocytes Absolute Auto 0.3 X10*3/uL (0.1-1.2); Monocytes Percent Auto 6.3 % (2-11); Neutrophils Absolute Auto 1.2 X10*3/uL (2.0-8.3); Neutrophils Percent Auto 25.6 % (45-73); Platelet Count 247 X10*3/uL (160-400); Red Blood Count 3.42 X10*6/uL (4.20-5.50); Red Cell Distribution Width 13.5 % (11.0-16.0); SCAN SMEAR FLAG 1; White Blood Count 4.7 X10*3/uL (4.8-10.8)
[2020-09-30 14:34] LABS: Bacteria Urine TRACE /LPF; Squamous Epithelial Cell Urine 3+ /LPF; WBC Urine 0-2 /HPF (0-4)
[2020-09-30 15:09] LABS: Alanine Aminotransferase 14 U/L (0-31); Albumin Level 4.1 g/dL (3.5-5.0); Alkaline Phosphatase 47 U/L (39-117); Anion Gap 10 (12-20); Aspartate Amino Transferase 17 U/L (5-31); Bilirubin Total 0.5 mg/dL (0.0-1.0); Blood Urea Nitrogen 13 mg/dL (9-16); C Reactive Protein 0.08 mg/dL (< or = 0.50); Calcium 8.8 mg/dL (8.4-10.2); Carbon Dioxide 25 mmol/L (22-29); Chloride 106 mmol/L (96-108); Estimated Glomerular Filt Rate > 60; Glucose Random 83 mg/dL (60-115); Sodium 137 mmol/L (135-145); Total Protein 8.5 g/dL (6.5-8.0)
[2020-09-30 15:22] LABS: Erythrocyte Sedimentation Rate 34 MM/HR (0-20)
[2020-09-30 15:46] LABS: SLIDE REVIEW VERIFIED
[2020-10-01 12:38] LABS: Anti DNA DS Antibody 2 IU/mL
== END 2020-09-30 12:59 | disposition home or self-care (01) ==
LOC: HO.LAB 12:58
PROVIDERS: PCP Emergency Medicine; Visit Provider Student in an Organized Health Care Education/Training Program
DX: M05.9 Rheumatoid arthritis with rheumatoid factor, unspecified (principal); M32.9 Systemic lupus erythematosus, unspecified; Z79.899 Other long term (current) drug therapy
CPT/HCPCS: 36415; 80053; 81001; 85025; 85652; 86140; 86160; 86225; 99212

== ENCOUNTER 2020-10-29 11:06 | Emergency (ER) | payer MEDICAID, SELFPAY ==
--- NOTE | ~2020-10-29 | CT_ITS ---
EXAMINATION: CT ABDOMEN AND PELVIS WITHOUT CONTRAST CLINICAL INFORMATION: Right flank pain COMPARISON: Previous CT of the abdomen and pelvis January 2019 and renal ultrasound May 2020 TECHNIQUE: Multidetector volumetric imaging was performed from the superior aspect of the liver through the pubic symphysis. Sagittal and coronal reformatted images were obtained on the technologist's workstation. This CT examination was performed using dose optimization techniques as appropriate, variously including the following: *Automated exposure control *Adjustment of mA and/or kV according to patient size (this includes techniques or standardized protocols for targeted exams where dose is matched to indication/reason for exam; i.e. extremities or head) *Use of iterative reconstruction technique DLP: 809 mGy-cm FINDINGS: LUNG BASES: The visualized lung bases are unremarkable. LIVER, GALLBLADDER, AND BILIARY TREE: The right lobe of the liver is prominent measuring 20 cm in length. The liver is otherwise normal in size, shape, and attenuation. No focal hepatic lesion or biliary ductal dilatation is present. The gallbladder has been removed. PANCREAS: Unremarkable. SPLEEN: Unremarkable. ADRENAL GLANDS: Unremarkable. KIDNEYS AND URETERS: There is a small 2 mm left mid renal stone. No right renal stone is seen. No hydronephrosis, ureteral dilatation or ureteral stone is seen. BLADDER: Unremarkable. GASTROINTESTINAL TRACT: The small and large bowel are unremarkable. The appendix is unremarkable. ABDOMINAL WALL: There is a small umbilical hernia and small left inguinal hernia containing fat. LYMPH NODES: Normal. VASCULAR: There is evidence of atherosclerotic disease with vessel wall calcification. PELVIC VISCERA: Unremarkable. OSSEOUS STRUCTURES: There is degenerative disc disease at L5-S1. CT/CT abdomen pelvis wo con IMPRESSION: No right stone or hydronephrosis seen. Small 2 mm left renal stone. Normal-appearing appendix.
--- NOTE | ~2020-10-29 | XR_ITS ---
EXAMINATION: RIGHT FOOT AND RIGHT ANKLE. CLINICAL INFORMATION: Pain COMPARISON: None TECHNIQUE: 3 views right ankle and 2 views right foot. FINDINGS: RIGHT FOOT: There is no visible fracture, dislocation or subluxation. The IP, MTP and IT joints are unremarkable. No bony erosive changes seen the soft tissues are normal. RIGHT ANKLE: The ankle mortise and subtalar joints are normal. No bony erosive changes, loose bodies or joint effusion seen. XR/XR foot RT min 3V IMPRESSION: Unremarkable right foot and right ankle exam.
--- NOTE | ~2020-10-29 | XR_ITS ---
EXAMINATION: RIGHT FOOT AND RIGHT ANKLE. CLINICAL INFORMATION: Pain COMPARISON: None TECHNIQUE: 3 views right ankle and 2 views right foot. FINDINGS: RIGHT FOOT: There is no visible fracture, dislocation or subluxation. The IP, MTP and IT joints are unremarkable. No bony erosive changes seen the soft tissues are normal. RIGHT ANKLE: The ankle mortise and subtalar joints are normal. No bony erosive changes, loose bodies or joint effusion seen. XR/XR ankle RT 2V IMPRESSION: Unremarkable right foot and right ankle exam.
[2020-10-29 11:36] VITALS: BP 125/70; PULSE 73; RESP 16; TEMP 36.6; O2SAT 99; BMI 31.6
--- NOTE | 2020-10-29 12:15 | PC.NURSE ---
TRANSPORTED VIA STRETCHER TO MAIN ED 18H, REPORT TO JENNIFER WINSTON
[2020-10-29 12:38] LABS: MANUAL DIFF FLAG NO
[2020-10-29 12:39] LABS: Basophils Percent Auto 0.4 % (0-2); Eosinophils Absolute Auto 0.1 X10*3/uL (0.0-0.4); Hematocrit 36.5 % (37-47); Hemoglobin 11.9 g/dl (12.0-16.0); Imm Gran Abs Auto 0.01 X10*3/uL (0.00-0.03); Imm Gran Pct Auto 0.2 % (0.0-0.4); Lymphocytes Absolute Auto 2.7 X10*3/uL (1.2-4.9); Lymphocytes Percent Auto 55.9 % (20-40); Mean Corpuscular HGB Conc 32.6 g/dl (31.0-35.0); Mean Corpuscular Hemoglobin 32.5 pg (27.0-33.0); Mean Corpuscular Volume 99.7 fL (80-98); Mean Platelet Volume 9.2 fL (9.4-12.3); Monocytes Absolute Auto 0.3 X10*3/uL (0.1-1.2); Monocytes Percent Auto 6.1 % (2-11); Neutrophils Absolute Auto 1.8 X10*3/uL (2.0-8.3); Neutrophils Percent Auto 36.4 % (45-73); Platelet Count 231 X10*3/uL (160-400); Red Blood Count 3.66 X10*6/uL (4.20-5.50); Red Cell Distribution Width 15.5 % (11.0-16.0); White Blood Count 4.9 X10*3/uL (4.8-10.8)
--- NOTE | 2020-10-29 12:46 | ED.GENADULT ---
HPI - General Adult General Chief complaint: General Medical Stated complaint: rash Time Seen by Provider: 10/29/20 11:40 Source: patient Mode of arrival: ambulatory Limitations: language barrier History of Present Illness HPI narrative: 45 y/o female with history of SLE, rheumatoid arthritis on MTX, osteoarthritis with chronic pain syndrome, history of Hodgkin's disease, hx DVT on Eliquis who presents with red painful, burning, itching rash under her bilateral breasts left worse than right that started a few days ago. She also reports low grade fevers of 100.2 yesterday and new onset of right sided kidney pain that started today. She also complains of non-trauamtic left ankle and heel pain that she attributes to her arthritis. She denied nausea, vomiting, abdominal pain, urinary symptoms. MD complaint: rash, flank pain Onset (ago): day(s) (1) Location: chest, back and lower extremity Radiation: non-radiation Severity: severe Quality: burning, aching and constant Pain Consistency: constant Relieving factors: none Exacerbating factors: movement Associated symptoms: fever/chills and rash Treatments prior to arrival: none Related Data Home Medications Medication Instructions Recorded Confirmed apixaban [Eliquis] 5 mg PO BID 05/01/20 09/30/20 benztropine 0.5 mg PO DAILY 05/01/20 09/30/20 folic acid 1 mg PO DAILY 05/01/20 09/30/20 gabapentin 400 mg PO TID 05/01/20 09/30/20 risperidone 1 mg PO DAILY 05/01/20 09/30/20 sertraline 100 mg PO DAILY 05/01/20 09/30/20 Previous Rx's Medication Instructions Recorded adhesive bandage 1 #20 ea 05/21/20 alcohol swabs 2 pad TOPICAL .COMPLEX #100 ea 05/21/20 naloxone 4 mg/actuation nasal spray 4 mg INTRANASAL Q2M PRN #2 ea 06/24/20 methotrexate sodium (PF) 25 mg/mL 25 mg SUBCUT QWEEK 30 Days #4 ml 07/16/20 injection solution syringe with needle, safety 1 mL #50 ea 07/16/20 28 gauge x 1/2 cyclobenzaprine 5 mg PO TID PRN #14 tab 08/12/20 hydroxychloroquine 200 mg tablet 200 mg PO DAILY #30 tab 08/15/20 sarilumab 200 mg/1.14 mL 200 mg SUBCUT Q2W #2.28 ml 08/15/20 subcutaneous pen injector oxycodone 5 mg PO Q4H PRN #14 tab 09/23/20 prednisone 5 mg tablet 15 mg PO DAILY #90 tab 09/30/20 cyclobenzaprine 5 mg PO TID PRN #14 tab 10/29/20 lidocaine [Lidoderm] 1 patch TOPICAL DAILY #15 ea 10/29/20 nystatin 1 appl TOPICAL TID #30 g 10/29/20 Allergies Allergy/AdvReac Type Severity Reaction Status Date / Time almond [ALMONDS] Allergy Severe ANAPHYLAXIS Verified 09/30/20 13:01 adhesive tape [ADHESIVE TAPE] Allergy Intermediate RASH Verified 09/30/20 13:01 morphine [MORPHINE] Allergy Intermediate GI UPSET, Verified 09/30/20 13:01 difficulty breathing tramadol [TRAMADOL] AdvReac Unknown NAUSEA & Verified 09/30/20 13:01 VOMITING Review of Systems Review of Systems: Constitutional: No Fever, No Chills ENT/Mouth: No sore throat Cardiovascular: No Chest Pain, No SOB, No Orthopnea, No Edema Respiratory: No Cough, No Sputum, No Wheezing, No dyspnea Gastrointestinal: No Nausea, No Vomiting, No Diarrhea, No abdominal Pain, No Hematochezia, No Melena Genitourinary: No Dysuria, No Urinary Frequency, No Hematuria Musculoskeletal: + joint pain, + Myalgias Skin: No Skin Lesions, + rash Neuro: No Weakness, No Numbness, No Dizziness, No Headache Psych: No Anxiety/Panic, No Depression Heme/Lymph: No Bruising, No Lymphadenopathy Endocrine: No Polyuria, No Polydipsia [facility] Past Medical History Medical History Acute arthritis Bleeding hemorrhoid Chronic GERD De Quervain's disease (tenosynovitis) Degeneration of intervertebral disc at C4-C5 level Degeneration, intervertebral disc, lumbar Depressive disorder Esophageal dysphagia Fibromyalgia Frequency-urgency syndrome Gallstones Hodgkin disease Nocturia Osteoarthritis of spine with radiculopathy, lumbar region Rheumatoid arthritis involving multiple sites Seropositive rheumatoid arthritis Stress incontinence in female Systemic lupus erythematosus Urgency-frequency syndrome Vitamin D deficiency Surgical History History of esophagogastroduodenoscopy (EGD) History of lymph node dissection of left axilla History of repair of inguinal hernia Social History Social History Alcohol intake: never Smoking Status: Light tobacco smoker Substance Use Type: Marijuana Advance Directives: No Advance Directives Information Provided: No Physical Exam Vital Signs: Vital Signs: Last Vital Signs Temp 97.8 F 10/29/20 11:36 Pulse 73 10/29/20 11:36 Resp 16 10/29/20 11:36 BP 125/70 10/29/20 11:36 Pulse Ox 99 10/29/20 11:36 Body Mass Index 31.6 Appearance: Alert. Oriented X3. No acute distress. Eyes: Pupils equal, round and reactive to light. ENT: Pharynx normal. Neck: Normal inspection. Neck supple. CVS: Normal heart rate and rhythm. Pulses normal. Respiratory: No respiratory distress. Breath sounds normal. Abdomen: Soft and nontender. +BS x4. CVA tenderness on the right, small surgical scars consistent with prior cholecystectomy Skin: Skin warm and dry. Normal skin color. Normal skin turgor. Under left breast is an erythematous, circular raw macular rash with moisture and slight flaking on the periphery Extremities: No lower extremity edema. Right ankle and foot with normal inspection, dry cracked skin on heel, tender throughout the entire foot and ankle. no erythema or warmth Neuro: Oriented X 3. No motor deficit. No sensory deficit. Speaks in complete sentences Ambulates with a limp. Course Course Course Narrative: 45 y/o female with history of SLE, RA, chronic pain on chronic opiates who presents with multiple complaints - rash under her breasts, right flank pain w/ low grade fever yesterday and right foot pain. She is diffusely tender on examination when touched anywhere, however when distracted she is no significant tenderness. Given her constellation of complaints will get metabolic workup, CT scan of her abdomen and XR of her foot. Will apply Nystatin cream now for burning rash consistent with fungal rash. Reevaluation(s) Reevaluation #1: Patient's workup is unremarkable. CT scan showing only left 2mm renal stone. Labs are normal. UA without infection. XR of foot is negative. Pain in her right side may be muscular in nature. Will give trial of Lidoderm patches and Flexeril which has worked for her in the past. She is stable for discharge with plans to follow up with her PCP and her [facility] [employer]. Medical Decision Making Lab Data Result diagrams: 10/29/20 12:32 10/29/20 12:32 Labs: Lab Results 10/29/20 10/29/20 10/29/20 Range/Units 12:32 12:32 12:32 WBC 4.9 (4.8-10.8) X10*3/uL RBC 3.66 L (4.20-5.50) X10*6/uL Hgb 11.9 L (12.0-16.0) g/dl Hct 36.5 L (37-47) % MCV 99.7 H (80-98) fL MCH 32.5 (27.0-33.0) pg MCHC 32.6 (31.0-35.0) g/dl RDW 15.5 (11.0-16.0) % Plt Count 231 (160-400) X10*3/uL MPV 9.2 L (9.4-12.3) fL Immature Gran % (Auto) 0.2 (0.0-0.4) % Neut % (Auto) 36.4 L (45-73) % Lymph % (Auto) 55.9 H (20-40) % [place] % (Auto) 6.1 (2-11) % Eos % (Auto) 1.0 (0-4) % Baso % (Auto) 0.4 (0-2) % Lymph # (Auto) 2.7 (1.2-4.9) X10*3/uL [place] # (Auto) 0.3 (0.1-1.2) X10*3/uL Eos # (Auto) 0.1 (0.0-0.4) X10*3/uL Baso # (Auto) 0.0 (0.0-0.2) X10*3/uL Abs Immat Gran (auto) 0.01 (0.00-0.03) X10*3/uL Absolute Neuts (auto) 1.8 L (2.0-8.3) X10*3/uL Absolute Nucleated RBC 0.000 (0.0-0.012) X10*3/uL Nucleated RBC % (auto) 0.0 (0.0-0.2) /100WBC Hold Blue Top SEE NOTE Sodium 139 (135-145) mmol/L Potassium 3.8 (3.3-5.1) mmol/L Chloride 103 (96-108) mmol/L Carbon Dioxide 24 (22-29) mmol/L Anion Gap 16 (12-20) BUN 12 (9-16) mg/dL Creatinine 0.80 (0.5-1.4) mg/dL Estim Creat Clear Calc 97.2 Estimated GFR > 60 Random Glucose 92 (60-115) mg/dL Calcium 8.9 (8.4-10.2) mg/dL Magnesium 2.3 (1.6-2.6) mg/dL Total Bilirubin 0.4 (0.0-1.0) mg/dL Direct Bilirubin < 0.2 (0.0-0.5) mg/dL AST 17 (5-31) U/L ALT 15 (0-31) U/L Alkaline Phosphatase 42 (39-117) U/L Total Protein 8.6 H (6.5-8.0) g/dL Albumin 4.3 (3.5-5.0) g/dL Beta HCG, Quant < 2 mIU/mL Urine Color Urine Appearance Urine pH (5.0-8.0) Ur Specific [place] (1.005-1.025) Urine Protein (NEG-TRACE) MG/DL Urine Glucose (UA) (NEG) MG/DL Urine Ketones (NEG) MG/DL Urine Blood (NEG) Urine Nitrite (NEG) Ur Leukocyte Esterase (NEG) Urine RBC (0) /HPF Urine WBC (0-4) /HPF Ur Squamous Epith Cells /LPF Calcium Oxalate Crystal /LPF Urine Bacteria /LPF Urine Mucus /LPF 10/29/20 Range/Units 12:57 WBC (4.8-10.8) X10*3/uL RBC (4.20-5.50) X10*6/uL Hgb (12.0-16.0) g/dl Hct (37-47) % MCV (80-98) fL MCH (27.0-33.0) pg MCHC (31.0-35.0) g/dl RDW (11.0-16.0) % Plt Count (160-400) X10*3/uL MPV (9.4-12.3) fL Immature Gran % (Auto) (0.0-0.4) % Neut % (Auto) (45-73) % Lymph % (Auto) (20-40) % [place] % (Auto) (2-11) % Eos % (Auto) (0-4) % Baso % (Auto) (0-2) % Lymph # (Auto) (1.2-4.9) X10*3/uL [place] # (Auto) (0.1-1.2) X10*3/uL Eos # (Auto) (0.0-0.4) X10*3/uL Baso # (Auto) (0.0-0.2) X10*3/uL Abs Immat Gran (auto) (0.00-0.03) X10*3/uL Absolute Neuts (auto) (2.0-8.3) X10*3/uL Absolute Nucleated RBC (0.0-0.012) X10*3/uL Nucleated RBC % (auto) (0.0-0.2) /100WBC Hold Blue Top Sodium (135-145) mmol/L Potassium (3.3-5.1) mmol/L Chloride (96-108) mmol/L Carbon Dioxide (22-29) mmol/L Anion Gap (12-20) BUN (9-16) mg/dL Creatinine (0.5-1.4) mg/dL Estim Creat Clear Calc Estimated GFR Random Glucose (60-115) mg/dL Calcium (8.4-10.2) mg/dL Magnesium (1.6-2.6) mg/dL Total Bilirubin (0.0-1.0) mg/dL Direct Bilirubin (0.0-0.5) mg/dL AST (5-31) U/L ALT (0-31) U/L Alkaline Phosphatase (39-117) U/L Total Protein (6.5-8.0) g/dL Albumin (3.5-5.0) g/dL Beta HCG, Quant mIU/mL Urine Color YELLOW Urine Appearance CLEAR Urine pH 6.0 (5.0-8.0) Ur Specific [place] >= 1.030 H (1.005-1.025) Urine Protein NEG (NEG-TRACE) MG/DL Urine Glucose (UA) NEG (NEG) MG/DL Urine Ketones NEG (NEG) MG/DL Urine Blood TRACE (NEG) Urine Nitrite NEG (NEG) Ur Leukocyte Esterase NEG (NEG) Urine RBC 1-4 (0) /HPF Urine WBC 0 (0-4) /HPF Ur Squamous Epith Cells 2+ /LPF Calcium Oxalate Crystal 3+ /LPF Urine Bacteria NONE /LPF Urine Mucus 2+ /LPF Discharge Plan Discharge Clinical Impression: Fungal rash of trunk, Acute right-sided thoracic back pain Patient Disposition: Home, Self-Care Instructions: Skin Yeast Infection (ED), Thoracic Back Strain (ED) Additional Instructions: Your lab workup is unremarkable. You CT scan did not show any causes of your right sided pain. Your pain may be muscular. Take the prescribed muscle relaxer as needed for discomfort. Apply ice and rest. The rash on your chest fungal and due to too much moisture. Use the prescribed anti-fungal cream 3 times per day. Wear cotton shirts and bras only, avoid synthetic fabrics. Follow up with your doctor this week. Follow up with your [facility] [employer]. Prescriptions: New lidocaine [Lidoderm] 5 % adhesive patch,medicated 1 patch topical DAILY Qty: 15 RF: 0 cyclobenzaprine 5 mg tablet 5 mg PO TID PRN (Reason: muscle spasm) Qty: 14 RF: 0 nystatin 100,000 unit/gram ointment 1 appl topical TID Qty: 30 RF: 0 No Action alcohol swabs [Alcohol Prep Pads] Pads, Medicated 2 pad topical .COMPLEX Qty: 100 RF: 3 (DME) adhesive bandage 1 bandage See Rx Instructions .ROUTE .MEDSUPPLY Qty: 20 RF: 5 Narcan 4 mg/actuation spray,non-aerosol 4 mg intranasal Q2M PRN (Reason: opioid overdose) Qty: 2 RF: 0 cyclobenzaprine 5 mg tablet 5 mg PO TID PRN (Reason: muscle spasm) Qty: 14 RF: 0 oxycodone 5 mg tablet 5 mg PO Q4H PRN (Reason: pain) Qty: 14 RF: 0 benztropine 0.5 mg Tablet 0.5 mg PO DAILY RF: 0 sertraline 100 mg Tablet 100 mg PO DAILY RF: 0 folic acid 1 mg Tablet 1 mg PO DAILY RF: 0 risperidone 1 mg Tablet 1 mg PO DAILY RF: 0 gabapentin 400 mg Tablet 400 mg PO TID RF: 0 Eliquis 5 mg Tablet 5 mg PO BID RF: 0 methotrexate sodium (PF) 25 mg/mL solution 25 mg subcut QWEEK 30 Days Qty: 4 RF: 3 (DME) Monoject TB Safety Syringe 1 mL 28 gauge x 1/2 syringe See Rx Instructions .ROUTE .MEDSUPPLY Qty: 50 RF: 1 hydroxychloroquine [Plaquenil] 200 mg tablet 200 mg PO DAILY Qty: 30 RF: 4 Kevzara 200 mg/1.14 mL pen injector 200 mg subcut Q2W Qty: 2.28 RF: 3 prednisone 5 mg tablet 15 mg PO DAILY Qty: 90 RF: 2 Print Language: German
[2020-10-29] MEDS: Nystatin Ointment 15 GM TUBE 1 APPL TOPICAL (12:58)
[2020-10-29 13:04] LABS: Glucose Urine UA NEG (NEG); Leukocyte Esterase Urine NEG (NEG); Nitrite Urine NEG (NEG); Specific Gravity - Urine >= 1.030 (1.005-1.025); Urine Blood TRACE (NEG); Urine Ketones NEG (NEG); Urine Protein NEG (NEG-TRACE)
[2020-10-29 13:05] LABS: Appearance Urine CLEAR; Color Urine YELLOW
[2020-10-29 13:08] LABS: Alanine Aminotransferase 15 U/L (0-31); Albumin Level 4.3 g/dL (3.5-5.0); Alkaline Phosphatase 42 U/L (39-117); Anion Gap 16 (12-20); Aspartate Amino Transferase 17 U/L (5-31); Bilirubin Direct < 0.2 mg/dL (0.0-0.5); Bilirubin Total 0.4 mg/dL (0.0-1.0); Blood Urea Nitrogen 12 mg/dL (9-16); Calcium 8.9 mg/dL (8.4-10.2); Carbon Dioxide 24 mmol/L (22-29); Chloride 103 mmol/L (96-108); Creatinine Clr Calc Pharmacy 97.2; Estimated Glomerular Filt Rate > 60; Glucose Random 92 mg/dL (60-115); Magnesium 2.3 mg/dL (1.6-2.6); Potassium 3.8 mmol/L (3.3-5.1); Sodium 139 mmol/L (135-145); Total Protein 8.6 g/dL (6.5-8.0)
[2020-10-29 13:11] LABS: Calcium Oxalate Crystals Urine 3+ /LPF; Mucus Urine 2+ /LPF; Squamous Epithelial Cell Urine 2+ /LPF; WBC Urine 0 /HPF (0-4)
[2020-10-29 13:32] LABS: HCG Quantitative < 2 mIU/mL
== END 2020-10-29 15:15 | disposition home or self-care (01) ==
PROVIDERS: Physician Assistant; Emergency Provider Emergency Medicine; PCP Emergency Medicine
DX: B35.9 Dermatophytosis, unspecified (principal); M54.6 Pain in thoracic spine; Z86.718 Personal history of other venous thrombosis and embolism; Z79.01 Long term (current) use of anticoagulants
CPT/HCPCS: 36415; 73600; 73630; 74176; 80048; 80076; 81001; 81003; 83735; 84702; 85025; 99283; 99284

== ENCOUNTER 2020-11-29 07:39 | Emergency (ER) | payer MEDICAID, SELFPAY ==
--- NOTE | ~2020-11-29 | XR_ITS ---
EXAMINATION: RIGHT ANKLE AND FOOT X-RAY CLINICAL INFORMATION: Pain COMPARISON: Previous x-ray 10/29/2020 TECHNIQUE: 3 views of the right ankle and 3 views of the right foot FINDINGS: Right foot: Bone alignment is normal. No fracture or dislocation is seen. Joint spaces are normal. Soft tissues are normal. Right ankle: Bone alignment is normal. No fracture or dislocation is seen. The ankle mortise is normal. Soft tissues are normal. XR/XR foot RT 2V IMPRESSION: Normal right foot and ankle.
--- NOTE | ~2020-11-29 | US_ITS ---
EXAMINATION: US VENOUS ULTRASOUND WITH DOPPLER LOWER EXTREMITY, RIGHT CLINICAL INFORMATION: Swelling COMPARISON: 09/23/2020 TECHNIQUE: Ultrasound of the deep veins is performed from the hip to the calf with compression sonography and color and pulse Doppler assessment. Spectral analysis with color-flow imaging is performed. FINDINGS: There is normal venous compression and respiratory variation and augmented flow. The visualized common femoral vein, superficial femoral vein, profunda femoral vein, popliteal vein, and the trifurcation region shows no evidence of deep venous thrombosis. There is no significant popliteal fossa cyst. If the patient's symptoms persist, followup ultrasound in 5 days 7 days might be of value to exclude proximal propagation from a non-visualized calf vein. US/US venous duplex LE RT IMPRESSION: No DVT demonstrated in the right lower extremity.
--- NOTE | ~2020-11-29 | XR_ITS ---
EXAMINATION: RIGHT ANKLE AND FOOT X-RAY CLINICAL INFORMATION: Pain COMPARISON: Previous x-ray 10/29/2020 TECHNIQUE: 3 views of the right ankle and 3 views of the right foot FINDINGS: Right foot: Bone alignment is normal. No fracture or dislocation is seen. Joint spaces are normal. Soft tissues are normal. Right ankle: Bone alignment is normal. No fracture or dislocation is seen. The ankle mortise is normal. Soft tissues are normal. XR/XR ankle RT 2V IMPRESSION: Normal right foot and ankle.
[2020-11-29 08:13] VITALS: BP 174/82; PULSE 90; RESP 24; TEMP 37.2; O2SAT 97; BMI 30.7
--- NOTE | 2020-11-29 08:30 | ED_ITS ---
HPI - Extremity Problem General Chief complaint: Extremity Injury, Lower Stated complaint: R FOOT PAIN Time Seen by Provider: 11/29/20 08:28 Source: patient and science interpreter Mode of arrival: ambulatory Limitations: no limitations History of Present Illness HPI Narrative: 45-year-old female came in for evaluation of her right foot/ankle pain. This is a 45-year-old female appear very anxious and concerned, patient is crying in the emergency department because the pain in her right foot and ankle. Patient describes the pain as dull aching pain, localized to the right ankle and the right foot, no radiation, pain is constant since she woke up this morning, pain is worse with movement and walking, nothing relieves the pain, patient declined any trauma or fall or twisting her right lower extremities. Related Data Home Medications Medication Instructions Recorded Confirmed apixaban [Eliquis] 5 mg PO BID 05/01/20 09/30/20 benztropine 0.5 mg PO DAILY 05/01/20 09/30/20 folic acid 1 mg PO DAILY 05/01/20 09/30/20 gabapentin 400 mg PO TID 05/01/20 09/30/20 risperidone 1 mg PO DAILY 05/01/20 09/30/20 sertraline 100 mg PO DAILY 05/01/20 09/30/20 Previous Rx's Medication Instructions Recorded adhesive bandage 1 #20 ea 05/21/20 alcohol swabs 2 pad TOPICAL .COMPLEX #100 ea 05/21/20 naloxone 4 mg/actuation nasal spray 4 mg INTRANASAL Q2M PRN #2 ea 06/24/20 syringe with needle, safety 1 mL #50 ea 07/16/20 28 gauge x 1/2 cyclobenzaprine 5 mg PO TID PRN #14 tab 08/12/20 hydroxychloroquine 200 mg tablet 200 mg PO DAILY #30 tab 08/15/20 sarilumab 200 mg/1.14 mL 200 mg SUBCUT Q2W #2.28 ml 08/15/20 subcutaneous pen injector oxycodone 5 mg PO Q4H PRN #14 tab 09/23/20 prednisone 5 mg tablet 15 mg PO DAILY #90 tab 09/30/20 cyclobenzaprine 5 mg PO TID PRN #14 tab 10/29/20 lidocaine [Lidoderm] 1 patch TOPICAL DAILY #15 ea 10/29/20 nystatin 1 appl TOPICAL TID #30 g 10/29/20 methotrexate sodium (PF) 25 mg/mL 25 mg SUBCUT QWEEK #8 ml 11/11/20 injection solution prednisone 10 mg tablet See Rx Instructions PO DAILY #50 11/18/20 tab acetaminophen [Tylenol] 325 mg PO QID PRN #20 cap 11/29/20 Allergies Allergy/AdvReac Type Severity Reaction Status Date / Time almond [ALMONDS] Allergy Severe ANAPHYLAXIS Verified 09/30/20 13:01 adhesive tape [ADHESIVE TAPE] Allergy Intermediate RASH Verified 09/30/20 13:01 morphine [MORPHINE] Allergy Intermediate GI UPSET, Verified 09/30/20 13:01 difficulty breathing tramadol [TRAMADOL] AdvReac Unknown NAUSEA & Verified 09/30/20 13:01 VOMITING Review of Systems Review of Systems: All other systems are reviewed and are negative Constitutional: Reports as per HPI and Reports no additional constitutional complaints Eyes: Reports as per HPI and Reports no additional eye complaints Reports system reviewed and no additional complaints, except as documented Cardiovascular: Reports as per HPI and Reports no additional cardiovascular complaints Respiratory: Reports as per HPI and Reports no additional respiratory complaints Gastrointestinal: Reports as per HPI and Reports no additional gastrointestinal complaints Genitourinary: Reports no additional female genitourinary complaints Musculoskeletal: Reports no additional musculoskeletal complaints Skin/Breast: Reports system reviewed and no additional complaints, except as docu Psychiatric: Reports no additional psychiatric complaints Endocrine: Reports no additional endocrine complaints Hematologic/Lymphatic: Reports no additional hematologic/lymphatic complaints Allergic/Immunologic: Reports no additional allergic/immunologic complaints Reports system reviewed and no additional complaints, except as documented and R eports Abnormal speech present [facility] Past Medical History Medical History Acute arthritis Bleeding hemorrhoid Chronic GERD De Quervain's disease (tenosynovitis) Degeneration of intervertebral disc at C4-C5 level Degeneration, intervertebral disc, lumbar Depressive disorder Esophageal dysphagia Fibromyalgia Frequency-urgency syndrome Gallstones Hodgkin disease Nocturia Osteoarthritis of spine with radiculopathy, lumbar region Rheumatoid arthritis involving multiple sites Seropositive rheumatoid arthritis Stress incontinence in female Systemic lupus erythematosus Urgency-frequency syndrome Vitamin D deficiency Surgical History History of esophagogastroduodenoscopy (EGD) History of lymph node dissection of left axilla History of repair of inguinal hernia Social History Social History Alcohol intake: never Smoking Status: Light tobacco smoker Substance Use Type: Marijuana Advance Directives: Yes Advance Directives Information Provided: Yes Advance Directives on File: Yes Advance Directives Date on File: 09/23/20 Physical Exam Vital Signs: Vital Signs: Last Vital Signs Temp 98.9 F 11/29/20 08:13 Pulse 90 11/29/20 08:13 Resp 24 H 11/29/20 08:13 BP 174/82 H 11/29/20 08:13 Pulse Ox 97 11/29/20 08:13 Body Mass Index 30.7 Vital signs have been reviewed as appeared to be correct. Blood pressure elevated. Heart rate normal. Respiration rate is elevated. Temperature normal. Oxygen saturation normal. Appearance: Alert. Oriented X3. Appear very anxious and crying. Head: Normal external exam. Normocephalic. Atraumatic. No Osorio signs noted. No raccoon eyes noted Eyes: PERRLA. EOMI. Conjunctiva and sclera normal. Eyelids normal. ENT: TM's Normal. Pharynx normal. Uvula midline. Moist mucous membranes. No trismus noted. No drooling noted. No muffled voice noted. Neck: Normal inspection. Neck supple. FROM. No adenopathy. Thyroid Normal. No meningeal signs. No neck mass noted. CVS: Normal heart rate and rhythm. Heart sound normal. No murmurs noted. Pulses normal throughout. Respiratory: No respiratory distress. Painless inspiration. Breath sounds normal. No wheezes/rales/rhonchi noted. Chest nontender. No accessory muscle usage noted or decreased air movement noted. Abdomen: Soft and nontender. Bowel sounds normal in all 4 quadrants. No distention noted. No organomegaly noted. No visible injury noted. Back: No CVA tenderness. Full range of motion noted. Skin: Skin warm and dry. Normal skin color. Normal skin turgor. No rashes/lesions/lacerations noted. Extremities: Right lower extremity exam, no swelling, no deformity, tender to touch on the right ankle, normal neuro exam with good sensation to light touch and 2 point discrimination, good cap refill less than 2 seconds, good PT/DP pulse in the right foot. Neuro: Oriented X 3. No motor deficit. No sensory deficit. Reflexes normal. Course Course Course Narrative: Assessment and plan. 45-year-old female history of diffuse arthritis, came in with right ankle pain, patient has no acute fracture on the x-ray, ultrasound showed no DVT, patient is already taking anticoagulation, patient has a chronic elevation of D-dimer but ultrasound showed no acute DVT. Patient is better after she was given ibuprofen in the emergency department, will discharge the patient on NSAIDs p.r.n. pain. MDM - Extremity (Nontraumatic) Lab Data Result diagrams: 11/29/20 08:57 11/29/20 08:57 Labs: Lab Results 11/29/20 11/29/20 11/29/20 Range/Units 08:57 08:57 08:57 WBC 6.0 (4.8-10.8) X10*3/uL RBC 3.79 L (4.20-5.50) X10*6/uL Hgb 12.5 (12.0-16.0) g/dl Hct 37.6 (37-47) % MCV 99.2 H (80-98) fL MCH 33.0 (27.0-33.0) pg MCHC 33.2 (31.0-35.0) g/dl RDW 13.9 (11.0-16.0) % Plt Count 276 (160-400) X10*3/uL MPV 9.7 (9.4-12.3) fL Immature Gran % (Auto) 0.3 (0.0-0.4) % Neut % (Auto) 50.6 (45-73) % Lymph % (Auto) 39.4 (20-40) % Campbell % (Auto) 7.6 (2-11) % Eos % (Auto) 1.8 (0-4) % Baso % (Auto) 0.3 (0-2) % Lymph # (Auto) 2.4 (1.2-4.9) X10*3/uL Campbell # (Auto) 0.5 (0.1-1.2) X10*3/uL Eos # (Auto) 0.1 (0.0-0.4) X10*3/uL Baso # (Auto) 0.0 (0.0-0.2) X10*3/uL Abs Immat Gran (auto) 0.02 (0.00-0.03) X10*3/uL Absolute Neuts (auto) 3.0 (2.0-8.3) X10*3/uL Absolute Nucleated RBC 0.000 (0.0-0.012) X10*3/uL Nucleated RBC % (auto) 0.0 (0.0-0.2) /100WBC PT 11.0 (10.8-13.0) SEC INR 0.9 (0.9-1.1) APTT 28.4 (24.1-38.0) SEC D-Dimer 846 NG/ML Sodium 138 (135-145) mmol/L Potassium 4.4 (3.3-5.1) mmol/L Chloride 107 (96-108) mmol/L Carbon Dioxide 21 L (22-29) mmol/L Anion Gap 14 (12-20) BUN 16 (9-16) mg/dL Creatinine 0.84 (0.5-1.4) mg/dL Estim Creat Clear Calc 94.4 Estimated GFR > 60 Random Glucose 94 (60-115) mg/dL Calcium 9.4 (8.4-10.2) mg/dL Imaging Data Right lower extremities ultrasound: Radiologist's impression: No DVT demonstrated in the right lower extremity. Right foot /ankle x-ray: Radiologist's impression: Normal right foot and ankle. Discharge Plan Discharge Clinical Impression: Ankle sprain and strain Patient Disposition: Home, Self-Care Instructions: Ankle Sprain (ED) Prescriptions: New acetaminophen [Tylenol] 325 mg capsule 325 mg PO QID PRN (Reason: fever or pain) Qty: 20 RF: 0 No Action alcohol swabs [Alcohol Prep Pads] Pads, Medicated 2 pad topical .COMPLEX Qty: 100 RF: 3 (DME) adhesive bandage 1 bandage See Rx Instructions .ROUTE .MEDSUPPLY Qty: 20 RF: 5 Narcan 4 mg/actuation spray,non-aerosol 4 mg intranasal Q2M PRN (Reason: opioid overdose) Qty: 2 RF: 0 methotrexate sodium (PF) 25 mg/mL solution 25 mg subcut QWEEK Qty: 8 RF: 3 prednisone 10 mg tablet See Rx Instructions PO DAILY Qty: 50 RF: 0 cyclobenzaprine 5 mg tablet 5 mg PO TID PRN (Reason: muscle spasm) Qty: 14 RF: 0 oxycodone 5 mg tablet 5 mg PO Q4H PRN (Reason: pain) Qty: 14 RF: 0 lidocaine [Lidoderm] 5 % adhesive patch,medicated 1 patch topical DAILY Qty: 15 RF: 0 cyclobenzaprine 5 mg tablet 5 mg PO TID PRN (Reason: muscle spasm) Qty: 14 RF: 0 nystatin 100,000 unit/gram ointment 1 appl topical TID Qty: 30 RF: 0 benztropine 0.5 mg Tablet 0.5 mg PO DAILY RF: 0 sertraline 100 mg Tablet 100 mg PO DAILY RF: 0 folic acid 1 mg Tablet 1 mg PO DAILY RF: 0 risperidone 1 mg Tablet 1 mg PO DAILY RF: 0 gabapentin 400 mg Tablet 400 mg PO TID RF: 0 Eliquis 5 mg Tablet 5 mg PO BID RF: 0 (DME) Monoject TB Safety Syringe 1 mL 28 gauge x 1/2 syringe See Rx Instructions .ROUTE .MEDSUPPLY Qty: 50 RF: 1 hydroxychloroquine [Plaquenil] 200 mg tablet 200 mg PO DAILY Qty: 30 RF: 4 Kevzara 200 mg/1.14 mL pen injector 200 mg subcut Q2W Qty: 2.28 RF: 3 prednisone 5 mg tablet 15 mg PO DAILY Qty: 90 RF: 2 Referrals: Sisi Flores NP [Primary Care Provider] - 2 days
[2020-11-29 09:08] LABS: MANUAL DIFF FLAG NO
[2020-11-29 09:10] LABS: Basophils Percent Auto 0.3 % (0-2); Eosinophils Absolute Auto 0.1 X10*3/uL (0.0-0.4); Eosinophils Percent Auto 1.8 % (0-4); Hematocrit 37.6 % (37-47); Hemoglobin 12.5 g/dl (12.0-16.0); Imm Gran Abs Auto 0.02 X10*3/uL (0.00-0.03); Imm Gran Pct Auto 0.3 % (0.0-0.4); Lymphocytes Absolute Auto 2.4 X10*3/uL (1.2-4.9); Lymphocytes Percent Auto 39.4 % (20-40); Mean Corpuscular HGB Conc 33.2 g/dl (31.0-35.0); Mean Corpuscular Volume 99.2 fL (80-98); Mean Platelet Volume 9.7 fL (9.4-12.3); Monocytes Absolute Auto 0.5 X10*3/uL (0.1-1.2); Monocytes Percent Auto 7.6 % (2-11); Neutrophils Percent Auto 50.6 % (45-73); Platelet Count 276 X10*3/uL (160-400); Red Blood Count 3.79 X10*6/uL (4.20-5.50); Red Cell Distribution Width 13.9 % (11.0-16.0)
[2020-11-29] MEDS: Ibuprofen 800 MG TABLET PO (09:37)
[2020-11-29 09:40] LABS: D Dimer 846 NG/ML
[2020-11-29 09:49] LABS: Anion Gap 14 (12-20); Blood Urea Nitrogen 16 mg/dL (9-16); Calcium 9.4 mg/dL (8.4-10.2); Carbon Dioxide 21 mmol/L (22-29); Chloride 107 mmol/L (96-108); Creatinine Clr Calc Pharmacy 94.4; Estimated Glomerular Filt Rate > 60; Glucose Random 94 mg/dL (60-115); Potassium 4.4 mmol/L (3.3-5.1); Sodium 138 mmol/L (135-145)
[2020-11-29 10:04] LABS: INTERNATIONAL NORM RATIO 0.9 (0.9-1.1)
[2020-11-29 10:06] LABS: Partial Thromboplastin Time 28.4 SEC (24.1-38.0)
== END 2020-11-29 12:06 | disposition home or self-care (01) ==
PROVIDERS: Emergency Provider Emergency Medicine; PCP Emergency Medicine
DX: S93.401A Sprain of unspecified ligament of right ankle, initial encounter (principal); R60.0 Localized edema; M25.571 Pain in right ankle and joints of right foot; F12.90 Cannabis use, unspecified, uncomplicated; X58.XXXA Exposure to other specified factors, initial encounter; Y93.9 Activity, unspecified; Y92.89 Other specified places as the place of occurrence of the external cause; Y99.9 Unspecified external cause status; Z79.899 Other long term (current) drug therapy
CPT/HCPCS: 36415; 73600; 73620; 80048; 85025; 85379; 85610; 85730; 93971; 99283

== ENCOUNTER 2020-12-17 12:40 | Outpatient (REF) | payer MEDICAID, SELFPAY ==
--- NOTE | ~2020-12-17 | US_ITS ---
EXAMINATION: US ABDOMEN COMPLETE CLINICAL INFORMATION: Right upper quadrant and right flank pain. COMPARISON: CT abdomen and pelvis 10/29/2020. Renal ultrasound 05/20/2020. Ultrasound abdomen limited 03/15/2020. KUB 12/07/2019. TECHNIQUE: Real-time imaging of the abdominal viscera. FINDINGS: PANCREAS: Normal. ABDOMINAL AORTA: The proximal, mid, and distal segments are normal in caliber. INFERIOR VENA CAVA: Visualized portions are normal. LIVER: The liver is enlarged, right lobe measuring 21 cm in length. The liver echotexture is increased. This probably represents fatty infiltration. Liver is normal in contour. No focal hepatic lesion. There is no intrahepatic biliary duct dilatation seen. GALLBLADDER: Surgically absent. COMMON BILE DUCT: Normal in caliber measuring 0.3 cm in diameter. RIGHT KIDNEY: Normal. No hydronephrosis. No renal calculi or focal parenchymal lesions. The kidney measures 13.0 cm in maximum dimension. LEFT KIDNEY: Normal. No hydronephrosis. No renal calculi or focal parenchymal lesions. The kidney measures 11.3 cm in maximum dimension. SPLEEN: Normal. The spleen measures 7.7 cm in maximum dimension. FREE FLUID: None. US/US abdomen complete IMPRESSION: Probable enlarged fatty liver. Otherwise unremarkable exam.
--- NOTE | ~2020-12-17 | US_ITS ---
EXAMINATION: US SOFT TISSUE, NONVASCULAR CLINICAL INFORMATION: Tender mass instep right foot COMPARISON: Radiographs right foot 11/29/2020. TECHNIQUE: Ultrasound of the right foot is targeted to the area of clinical concern at the medial arch of the foot. Grayscale imaging and color Doppler are performed. Additional comparison scanning performed contralateral left foot. FINDINGS: There is bright specular echo near the tip medial malleolus measuring 4 x 2 mm. There is nonspecific hypoechogenicity surrounding this area 1.1 cm in diameter. There is trace fluid likely in the tendon sheath just proximal to the specular echo and measuring 3.2 cm in length. No hyperemia noted on real-time color Doppler. No skin thickening or edema tracking in soft tissue planes. US/US extremity nonvascular slater IMPRESSION: 4 mm specular echo near tip medial malleolus with surrounding hypoechogenicity and probable fluid in more proximal tendon sheath. Findings are nonspecific, possibly related to tendinopathy or tear in region of posterior tibialis tendon. This would best be further evaluated with MR ankle/hindfoot.
== END 2020-12-17 12:41 | disposition home or self-care (01) ==
LOC: HO.US 12:40
PROVIDERS: Visit Provider General Practice
DX: R22.41 Localized swelling, mass and lump, right lower limb (principal)
CPT/HCPCS: 76700; 76882

== ENCOUNTER 2020-12-30 09:12 | Outpatient (REF) | payer MEDICAID, SELFPAY ==
--- NOTE | ~2020-12-30 | MR_ITS ---
EXAMINATION: MR ANKLE WITHOUT AND WITH CONTRAST, RIGHT CLINICAL INFORMATION: Localized swelling. Upper ankle mass. COMPARISON: Soft tissue ultrasound dated 12/17/2020. Right foot and ankle radiographs dated 11/29/2020. TECHNIQUE: MRI of the ankle was performed before and after the intravenous administration of 10 mL gadolinium on a high-field scanner. FINDINGS: BONE AND ARTICULAR CARTILAGE: Normal marrow signal. Cartilage is well preserved. No talar osteochondral lesions. ACHILLES TENDON: Normal. OTHER TENDONS: Fluid within the distal posterior tibialis tendon sheath, consistent with tenosynovitis. No measurable tendon defect. Additionally, there is mild fluid within the peroneal brevis and peroneal longus tendon sheaths, consistent with mild tenosynovitis. No measurable tendon defect. LIGAMENTS: Intact. JOINT FLUID AND SOFT TISSUES: No abnormal soft tissue mass or fluid collection. Subcutaneous edema along the medial ankle. No postcontrast enhancement or abscess/fluid collection. PLANTAR FASCIA: Edema with abnormal signal at the proximal plantar fascia, consistent with acute plantar fasciitis. No measurable defect. SINUS TARSI AND TARSAL TUNNEL: Normal. MR/MR ankle RT wo/w con IMPRESSION: 1. Posterior tibialis tenosynovitis without a measurable tendon defect. 2. Mild peroneal brevis and peroneal longus tenosynovitis without a measurable tendon defect. 3. Medial subcutaneous edema. No postcontrast enhancement or abscess/mass. 4. Proximal plantar fasciitis without a measurable defect.
== END 2020-12-30 09:13 | disposition home or self-care (01) ==
LOC: HO.MRI 09:12
PROVIDERS: Visit Provider General Practice
DX: R22.41 Localized swelling, mass and lump, right lower limb (principal)
CPT/HCPCS: 73723; A9585

== ENCOUNTER 2021-01-06 10:36 | Emergency (ER) | payer MEDICAID, SELFPAY ==
--- NOTE | ~2021-01-06 | US_ITS ---
EXAMINATION: US VENOUS WITH DOPPLER UPPER EXTREMITY, RIGHT CLINICAL INFORMATION: Swelling and pain COMPARISON: Previous exam August 2020 TECHNIQUE: Ultrasound of the upper extremity is performed using compression sonography and color and pulse Doppler flow with assessment of augmentation of flow. There is also imaging and Doppler assessment of the jugular and subclavian veins. Spectral analysis with color-flow imaging is performed. FINDINGS: Respiratory variation, normal compression, and augmented flow are noted throughout the upper extremity including the axillary, brachial, cubital, and radial and ulnar veins. There is normal flow in the internal jugular and subclavian veins. There is no visible deep or superficial thrombophlebitis. US/US venous duplex UE RT IMPRESSION: No DVT demonstrated in the right upper arm
[2021-01-06 11:03] VITALS: BP 109/58; PULSE 78; RESP 18; O2SAT 95; BMI 37.8
--- NOTE | 2021-01-06 13:39 | ED_ITS ---
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 She has had this occur before per documentation, last in March 2020 and had negative doppler at that time. She remains on Eliquis. complaint: right upper extremity pain and swelling Onset (ago): hour(s) Location: right and upper extremity Radiation: distal Severity: moderate Quality: aching Pain Consistency: constant Relieving factors: rest Exacerbating factors: movement and other (palpation) Associated symptoms: denies other symptoms Treatments prior to arrival: none Related Data Home Medications Medication Instructions Recorded Confirmed apixaban [Eliquis] 5 mg PO BID 05/01/20 09/30/20 benztropine 0.5 mg PO DAILY 05/01/20 09/30/20 folic acid 1 mg PO DAILY 05/01/20 09/30/20 gabapentin 400 mg PO TID 05/01/20 09/30/20 risperidone 1 mg PO DAILY 05/01/20 09/30/20 sertraline 100 mg PO DAILY 05/01/20 09/30/20 Previous Rx's Medication Instructions Recorded adhesive bandage 1 #20 ea 05/21/20 alcohol swabs 2 pad TOPICAL .COMPLEX #100 ea 05/21/20 naloxone 4 mg/actuation nasal spray 4 mg INTRANASAL Q2M PRN #2 ea 06/24/20 syringe with needle, safety 1 mL #50 ea 07/16/20 28 gauge x 1/2 cyclobenzaprine 5 mg PO TID PRN #14 tab 08/12/20 hydroxychloroquine 200 mg tablet 200 mg PO DAILY #30 tab 08/15/20 oxycodone 5 mg PO Q4H PRN #14 tab 09/23/20 prednisone 5 mg tablet 15 mg PO DAILY #90 tab 09/30/20 cyclobenzaprine 5 mg PO TID PRN #14 tab 10/29/20 lidocaine [Lidoderm] 1 patch TOPICAL DAILY #15 ea 10/29/20 nystatin 1 appl TOPICAL TID #30 g 10/29/20 methotrexate sodium (PF) 25 mg/mL 25 mg SUBCUT QWEEK #8 ml 11/11/20 injection solution prednisone 10 mg tablet See Rx Instructions PO DAILY #50 11/18/20 tab acetaminophen [Tylenol] 325 mg PO QID PRN #20 cap 11/29/20 sarilumab 200 mg/1.14 mL 200 mg SUBCUT Q2W #2.28 ml 12/02/20 subcutaneous pen injector hydrocodone-acetaminophen 1 tab PO Q6H PRN #6 tab 01/06/21 Allergies Allergy/AdvReac Type Severity Reaction Status Date / Time almond [ALMONDS] Allergy Severe ANAPHYLAXIS Verified 09/30/20 13:01 adhesive tape [ADHESIVE TAPE] Allergy Intermediate RASH Verified 09/30/20 13:01 morphine [MORPHINE] Allergy Intermediate GI UPSET, Verified 09/30/20 13:01 difficulty breathing tramadol [TRAMADOL] AdvReac Unknown NAUSEA & Verified 09/30/20 13:01 VOMITING Review of Systems Review of Systems: Constitutional: No Fever, No Chills Cardiovascular: No Chest Pain, No SOB, No Orthopnea, + Edema Respiratory: No Cough, No Sputum, No Wheezing, No dyspnea Gastrointestinal: No Nausea, No Vomiting, No Diarrhea, No abdominal Pain Musculoskeletal: + joint pain, + Myalgias Skin: No Skin Lesions, No rash Neuro: No Weakness, No Numbness, No Dizziness, No Headache Psych: No Anxiety/Panic, No Depression Heme/Lymph: No Bruising, No Lymphadenopathy PMFSH Past Medical History Medical History Acute arthritis Bleeding hemorrhoid Chronic GERD De Quervain's disease (tenosynovitis) Degeneration of intervertebral disc at C4-C5 level Degeneration, intervertebral disc, lumbar Depressive disorder Esophageal dysphagia Fibromyalgia Frequency-urgency syndrome Gallstones Hodgkin disease Nocturia Osteoarthritis of spine with radiculopathy, lumbar region Rheumatoid arthritis involving multiple sites Seropositive rheumatoid arthritis Stress incontinence in female Systemic lupus erythematosus Urgency-frequency syndrome Vitamin D deficiency Surgical History History of esophagogastroduodenoscopy (EGD) History of lymph node dissection of left axilla History of repair of inguinal hernia Social History Social History Alcohol intake: current Alcohol intake frequency: holidays/special occasions only Patient Tobacco Use Status: Never used Tobacco Use of substances other than those prescribed or required for medical reasons: No Substance Use Type: Marijuana Advance Directives: No Advance Directives Information Provided: No Advance Directives Date on File: 09/23/20 Physical Exam Vital Signs: Vital Signs: Last Vital Signs Temp 97.7 F 01/06/21 13:56 Pulse 63 01/06/21 13:56 Resp 15 01/06/21 13:56 BP 142/67 H 01/06/21 13:56 Pulse Ox 100 01/06/21 13:56 Body Mass Index 37.8 Appearance: Alert. Oriented X3. No acute distress. HEENT: normal inspection CVS: Normal heart rate and rhythm. Pulses normal. Respiratory: No respiratory distress. right upper chest wall with superficial collateral blood vessels visible, nontender Skin: Skin warm and dry. Normal skin color. Normal skin turgor. No rashes. Extremities: right upper extremity with mild distal swelling and tenderness throughout from fingers to shoulder, warm and well perfused, compartments are soft. NV intact. ROM of wrist, elbow and shoulder are normal. NV intact distally. Neuro: Oriented X 3. No motor deficit. No sensory deficit. 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 Her exam shows mild edema, with diffuse tenderness throughout the entire arm. It is warm, well perfused, soft in all compartments with good pulses and sensation. Will get U/S to r/o recurrent DVT and Eliquis failure. Reevaluation(s) Reevaluation #1: U/S is negative for DVT. Pain is most likely related to her RA. No clinical signs of life-threatening causes of arm pain. She has documented difficult pain to control. She has a f/u with her Rheum in 3 months, encouraged to f/u [facility]. Will give brief course of pain control for acute pain and have her follow up with her outpatient providers. Patient is agreeable. Stable for d/c. Critical Care Time Critical Care Time Critical Care Time: No Discharge Plan Discharge Clinical Impression: Arm pain Patient Disposition: Home, Self-Care Instructions: Arm Pain (ED), Rheumatoid Arthritis (ED) Additional Instructions: Your ultrasound was negative for any blood clots. Continue taking your Eliquis to prevent any blood clots from forming. Elevate your arm when possible. Follow up with your Pain management doctor, [employer] and Oncologist. If you have worsening pain, swelling or any other concerning symptoms come back to the ER for further evaluation. Prescriptions: New hydrocodone-acetaminophen 5-325 mg tablet 1 tab PO Q6H PRN (Reason: pain) Qty: 6 RF: 0 No Action alcohol swabs [Alcohol Prep Pads] Pads, Medicated 2 pad topical .COMPLEX Qty: 100 RF: 3 (DME) adhesive bandage 1 bandage See Rx Instructions .ROUTE .MEDSUPPLY Qty: 20 RF: 5 Narcan 4 mg/actuation spray,non-aerosol 4 mg intranasal Q2M PRN (Reason: opioid overdose) Qty: 2 RF: 0 methotrexate sodium (PF) 25 mg/mL solution 25 mg subcut QWEEK Qty: 8 RF: 3 prednisone 10 mg tablet See Rx Instructions PO DAILY Qty: 50 RF: 0 sarilumab [Kevzara] 200 mg/1.14 mL pen injector 200 mg subcut Q2W Qty: 2.28 RF: 3 cyclobenzaprine 5 mg tablet 5 mg PO TID PRN (Reason: muscle spasm) Qty: 14 RF: 0 oxycodone 5 mg tablet 5 mg PO Q4H PRN (Reason: pain) Qty: 14 RF: 0 lidocaine [Lidoderm] 5 % adhesive patch,medicated 1 patch topical DAILY Qty: 15 RF: 0 cyclobenzaprine 5 mg tablet 5 mg PO TID PRN (Reason: muscle spasm) Qty: 14 RF: 0 nystatin 100,000 unit/gram ointment 1 appl topical TID Qty: 30 RF: 0 acetaminophen [Tylenol] 325 mg capsule 325 mg PO QID PRN (Reason: fever or pain) Qty: 20 RF: 0 benztropine 0.5 mg Tablet 0.5 mg PO DAILY RF: 0 sertraline 100 mg Tablet 100 mg PO DAILY RF: 0 folic acid 1 mg Tablet 1 mg PO DAILY RF: 0 risperidone 1 mg Tablet 1 mg PO DAILY RF: 0 gabapentin 400 mg Tablet 400 mg PO TID RF: 0 Eliquis 5 mg Tablet 5 mg PO BID RF: 0 (DME) Monoject TB Safety Syringe 1 mL 28 gauge x 1/2 syringe See Rx Instructions .ROUTE .MEDSUPPLY Qty: 50 RF: 1 hydroxychloroquine [Plaquenil] 200 mg tablet 200 mg PO DAILY Qty: 30 RF: 4 prednisone 5 mg tablet 15 mg PO DAILY Qty: 90 RF: 2
[2021-01-06 13:56] VITALS: BP 142/67; PULSE 63; RESP 15; TEMP 36.5; O2SAT 100
[2021-01-06 16:23] VITALS: BP 139/79; PULSE 68; RESP 20; TEMP 36.5; O2SAT 97
--- NOTE | 2021-01-06 16:50 | PC.NURSE ---
ED provider went over discharge instructions with aerial photograph interpreter. Pt denies any questions. pt is ambulatory to exit in no distress
== END 2021-01-06 16:51 | disposition home or self-care (01) ==
PROVIDERS: Emergency Provider Emergency Medicine
DX: R22.31 Localized swelling, mass and lump, right upper limb (principal); M79.601 Pain in right arm; M32.9 Systemic lupus erythematosus, unspecified; C81.90 Hodgkin lymphoma, unspecified, unspecified site; M06.9 Rheumatoid arthritis, unspecified; F12.90 Cannabis use, unspecified, uncomplicated; Z86.718 Personal history of other venous thrombosis and embolism; Z79.01 Long term (current) use of anticoagulants; Z79.891 Long term (current) use of opiate analgesic
CPT/HCPCS: 93971; 99284

== ENCOUNTER 2021-01-14 08:32 | Outpatient (REF) | payer MEDICAID, SELFPAY ==
[2021-01-14 10:02] LABS: Glucose Urine UA NEG (NEG); Leukocyte Esterase Urine NEG (NEG); Nitrite Urine NEG (NEG); Urine Blood NEG (NEG); Urine Ketones NEG (NEG); Urine Protein NEG (NEG-TRACE)
[2021-01-14 10:07] LABS: MANUAL DIFF FLAG NO
[2021-01-14 10:08] LABS: Appearance Urine HAZY; Color Urine YELLOW
[2021-01-14 10:16] LABS: Basophils Percent Auto 0.3 % (0-2); Eosinophils Absolute Auto 0.1 X10*3/uL (0.0-0.4); Eosinophils Percent Auto 2.9 % (0-4); Hematocrit 37.7 % (37-47); Hemoglobin 12.1 g/dl (12.0-16.0); Imm Gran Abs Auto 0.01 X10*3/uL (0.00-0.03); Imm Gran Pct Auto 0.3 % (0.0-0.4); Lymphocytes Absolute Auto 1.9 X10*3/uL (1.2-4.9); Lymphocytes Percent Auto 49.6 % (20-40); Mean Corpuscular HGB Conc 32.1 g/dl (31.0-35.0); Mean Corpuscular Hemoglobin 32.2 pg (27.0-33.0); Mean Corpuscular Volume 100.3 fL (80-98); Mean Platelet Volume 10.2 fL (9.4-12.3); Monocytes Absolute Auto 0.4 X10*3/uL (0.1-1.2); Monocytes Percent Auto 9.4 % (2-11); Neutrophils Absolute Auto 1.5 X10*3/uL (2.0-8.3); Neutrophils Percent Auto 37.5 % (45-73); Platelet Count 218 X10*3/uL (160-400); Red Blood Count 3.76 X10*6/uL (4.20-5.50); Red Cell Distribution Width 13.1 % (11.0-16.0); White Blood Count 3.9 X10*3/uL (4.8-10.8)
[2021-01-14 10:56] LABS: Erythrocyte Sedimentation Rate 21 MM/HR (0-20)
[2021-01-14 11:01] LABS: Mucus Urine 1+ /LPF; RBC Urine 0 /HPF (0); Squamous Epithelial Cell Urine 1+ /LPF; WBC Urine 0 /HPF (0-4)
[2021-01-14 11:32] LABS: Alanine Aminotransferase 15 U/L (0-31); Albumin Level 4.2 g/dL (3.5-5.0); Alkaline Phosphatase 44 U/L (39-117); Anion Gap 15 (12-20); Aspartate Amino Transferase 22 U/L (5-31); Bilirubin Total 0.5 mg/dL (0.0-1.0); Blood Urea Nitrogen 10 mg/dL (9-16); C Reactive Protein 0.08 mg/dL (< or = 0.50); Calcium 9.3 mg/dL (8.4-10.2); Carbon Dioxide 21 mmol/L (22-29); Chloride 106 mmol/L (96-108); Estimated Glomerular Filt Rate > 60; Glucose Random 88 mg/dL (60-115); Potassium 4.2 mmol/L (3.3-5.1); Sodium 138 mmol/L (135-145); Total Protein 8.3 g/dL (6.5-8.0)
== END 2021-01-14 08:33 | disposition home or self-care (01) ==
LOC: HO.LAB 08:32
PROVIDERS: Visit Provider Student in an Organized Health Care Education/Training Program
DX: M06.9 Rheumatoid arthritis, unspecified (principal); M32.9 Systemic lupus erythematosus, unspecified
CPT/HCPCS: 36415; 80053; 81001; 85025; 85652; 86140

== ENCOUNTER 2021-02-11 09:51 | Outpatient (REF) | payer MEDICAID, SELFPAY ==
[2021-02-11 11:14] LABS: MANUAL DIFF FLAG NO
[2021-02-11 11:24] LABS: Basophils Percent Auto 0.4 % (0-2); Eosinophils Absolute Auto 0.1 X10*3/uL (0.0-0.4); Hematocrit 37.9 % (37-47); Hemoglobin 12.5 g/dl (12.0-16.0); Imm Gran Abs Auto 0.01 X10*3/uL (0.00-0.03); Imm Gran Pct Auto 0.2 % (0.0-0.4); Lymphocytes Absolute Auto 1.9 X10*3/uL (1.2-4.9); Lymphocytes Percent Auto 38.7 % (20-40); Mean Corpuscular Hemoglobin 32.8 pg (27.0-33.0); Mean Corpuscular Volume 99.5 fL (80-98); Mean Platelet Volume 10.4 fL (9.4-12.3); Monocytes Absolute Auto 0.4 X10*3/uL (0.1-1.2); Monocytes Percent Auto 7.6 % (2-11); Neutrophils Absolute Auto 2.5 X10*3/uL (2.0-8.3); Neutrophils Percent Auto 51.1 % (45-73); Platelet Count 213 X10*3/uL (160-400); Red Blood Count 3.81 X10*6/uL (4.20-5.50); Red Cell Distribution Width 12.9 % (11.0-16.0); White Blood Count 4.9 X10*3/uL (4.8-10.8)
[2021-02-11 11:28] LABS: Glucose Urine UA NEG (NEG); Leukocyte Esterase Urine NEG (NEG); Nitrite Urine NEG (NEG); PH 5.5 (5.0-8.0); Specific Gravity - Urine >= 1.030 (1.005-1.025); Urine Blood TRACE (NEG); Urine Ketones NEG (NEG); Urine Protein NEG (NEG-TRACE)
[2021-02-11 11:39] LABS: Appearance Urine HAZY; Color Urine YELLOW
[2021-02-11 12:02] LABS: Erythrocyte Sedimentation Rate 23 MM/HR (0-20)
[2021-02-11 12:09] LABS: Alanine Aminotransferase 16 U/L (0-31); Albumin Level 4.4 g/dL (3.5-5.0); Alkaline Phosphatase 44 U/L (39-117); Anion Gap 13 (12-20); Aspartate Amino Transferase 20 U/L (5-31); Bilirubin Total 0.6 mg/dL (0.0-1.0); Blood Urea Nitrogen 11 mg/dL (9-16); C Reactive Protein 0.05 mg/dL (< or = 0.50); Calcium 9.6 mg/dL (8.4-10.2); Carbon Dioxide 22 mmol/L (22-29); Chloride 107 mmol/L (96-108); Estimated Glomerular Filt Rate > 60; Glucose Random 94 mg/dL (60-115); Potassium 4.4 mmol/L (3.3-5.1); Sodium 138 mmol/L (135-145)
[2021-02-11 12:34] LABS: Bacteria Urine TRACE /LPF; RBC Urine 0-2 /HPF (0); Squamous Epithelial Cell Urine 1+ /LPF; WBC Urine 0 /HPF (0-4)
[2021-02-12 10:26] LABS: Complement C3 60 mg/dL (83-193)
[2021-02-13 10:02] LABS: Anti DNA DS Antibody 1 IU/mL
== END 2021-02-11 09:52 | disposition home or self-care (01) ==
LOC: HO.LAB 09:51
PROVIDERS: PCP Emergency Medicine; Visit Provider Student in an Organized Health Care Education/Training Program
DX: M05.9 Rheumatoid arthritis with rheumatoid factor, unspecified (principal); M32.9 Systemic lupus erythematosus, unspecified; Z79.899 Other long term (current) drug therapy
CPT/HCPCS: 36415; 80053; 81001; 85025; 85652; 86140; 86160; 86225; 99212

== ENCOUNTER → 2021-03-03 13:46 | Outpatient (BNVA) | payer MEDICAID, SELFPAY | PROVIDERS: PCP General Practice; Visit Provider Internal Medicine Gastroenterology ==

== ENCOUNTER → 2021-03-09 13:12 | Outpatient (BNVA) | payer MEDICAID, SELFPAY | PROVIDERS: PCP General Practice; Visit Provider Orthopaedic Surgery | DX: M79.89 Other specified soft tissue disorders (principal); M65.321 Trigger finger, right index finger; M79.641 Pain in right hand; R20.0 Anesthesia of skin; R20.2 Paresthesia of skin | CPT/HCPCS: 99202; J1100 ==

== ENCOUNTER 2021-03-13 08:00 | Outpatient (REF) | payer MEDICAID, SELFPAY ==
--- NOTE | ~2021-03-13 | FL_ITS ---
EXAMINATION: FL BARIUM SWALLOW CLINICAL INFORMATION: Dysphasia. COMPARISON: None TECHNIQUE: Barium swallow examination is performed using fluoroscopic evaluation in addition to multiple fluoroscopic spot views. The patient is imaged both upright and prone and using both thick and thin sulfate along with effervescent granules. Fluoroscopy time: 2 minutes DAP: 12.065 Gycm2 Images: 41 FINDINGS: There is normal apposition of the vocal cords while saying E. There is normal elevation of the soft palate while saying candy. Patient swallowed thin and thick barium without difficulty. No nasopharyngeal reflux or tracheal aspiration was present. No Zenker's diverticulum or cricopharyngeal hypertrophy. There is noted to be an esophageal web within the cervical esophagus which does not appear to be occlusive. Patient swallowed a half-inch diameter barium tablet which temporarily lodged at the gastroesophageal junction but which passed after an approximately 5-minute time period with repeat swallows of water and contrast which caused some of the patient's symptoms in the throat, questionably related to referred pain. The esophagus demonstrated normal distensibility and motility. No persistent stricture identified. No mucosal irregularity. No gastroesophageal reflux was elicited during the study. FL/FL barium swallow IMPRESSION: Thin cervical esophageal web. Patient's symptoms in throat were reproduced when barium tablet was temporarily lodged at the gastroesophageal junction.
== END 2021-03-13 08:01 | disposition home or self-care (01) ==
LOC: HO.XRAY 08:00
PROVIDERS: PCP General Practice; Visit Provider Internal Medicine Gastroenterology
DX: R13.10 Dysphagia, unspecified (principal)
CPT/HCPCS: 74220

== ENCOUNTER 2021-03-20 08:07 | Outpatient (REF) | payer MEDICAID, SELFPAY ==
--- NOTE | ~2021-03-20 | XR_ITS ---
EXAMINATION: AP WEIGHTBEARING VIEWS OF BOTH KNEES AND LATERAL AND SUNRISE VIEWS OF BOTH KNEES. CLINICAL INFORMATION: Pain greater on the left COMPARISON: None TECHNIQUE: As above FINDINGS: Joint spaces are preserved. No radiopaque loose body or focal bony lesion. No effusion. Minimal patellar spurring only. XR/XR knee standing BI IMPRESSION: Minor patella spurring only. No evidence of any subluxation.
--- NOTE | ~2021-03-20 | XR_ITS ---
EXAMINATION: AP WEIGHTBEARING VIEWS OF BOTH KNEES AND LATERAL AND SUNRISE VIEWS OF BOTH KNEES. CLINICAL INFORMATION: Pain greater on the left COMPARISON: None TECHNIQUE: As above FINDINGS: Joint spaces are preserved. No radiopaque loose body or focal bony lesion. No effusion. Minimal patellar spurring only. XR/XR knee LT 2V IMPRESSION: Minor patella spurring only. No evidence of any subluxation.
--- NOTE | ~2021-03-20 | XR_ITS ---
EXAMINATION: AP WEIGHTBEARING VIEWS OF BOTH KNEES AND LATERAL AND SUNRISE VIEWS OF BOTH KNEES. CLINICAL INFORMATION: Pain greater on the left COMPARISON: None TECHNIQUE: As above FINDINGS: Joint spaces are preserved. No radiopaque loose body or focal bony lesion. No effusion. Minimal patellar spurring only. XR/XR knee RT 2V IMPRESSION: Minor patella spurring only. No evidence of any subluxation.
== END 2021-03-20 08:08 | disposition home or self-care (01) ==
LOC: HO.HOSX 08:07
PROVIDERS: Visit Provider Physician Assistant
DX: M25.561 Pain in right knee (principal); M25.562 Pain in left knee; M17.10 Unilateral primary osteoarthritis, unspecified knee; M79.7 Fibromyalgia
CPT/HCPCS: 73560; 73565; 99202

== ENCOUNTER 2021-03-24 13:24 | Outpatient (REF) | payer MEDICAID, SELFPAY ==
--- NOTE | ~2021-03-24 | US_ITS ---
EXAMINATION: US RETROPERITONEAL LIMITED (RENAL ONLY) CLINICAL INFORMATION: Abdominal pain. COMPARISON: Ultrasound abdomen complete dated 12/17/2020. CT abdomen and pelvis without contrast dated 10/29/2020. Bilateral renal ultrasound dated 05/20/2020. KUB dated 12/07/2019. X-ray abdomen dated 12/26/2011. TECHNIQUE: Real-time imaging of the kidneys. FINDINGS: RIGHT KIDNEY: 13.1 x 5.0 x 5.1 cm (SAG x AP x TRV). The kidney is normal in size, contour, and echogenicity. Renal cortical thickness is normal. No calculi or focal parenchymal lesions. No hydronephrosis. LEFT KIDNEY: 11.6 x 5.9 x 5.5 cm (SAG x AP x TRV). The kidney is normal in size, contour, and echogenicity. Renal cortical thickness is normal. There is a 4 mm echogenic density with twinkle artifact in the midpole questionable for a small stone. No focal parenchymal lesions or hydronephrosis. US/US renal BI IMPRESSION: Question small left renal stone.
== END 2021-03-24 13:25 | disposition home or self-care (01) ==
LOC: HO.US 13:24
PROVIDERS: PCP General Practice; Visit Provider General Practice
DX: R10.32 Left lower quadrant pain (principal)
CPT/HCPCS: 76775

== ENCOUNTER 2021-04-17 10:17 | Outpatient (REF) | payer MEDICAID, SELFPAY ==
--- NOTE | ~2021-04-17 | MR_ITS ---
EXAMINATION: MR WRIST WITHOUT AND WITH CONTRAST, RIGHT CLINICAL INFORMATION: 45-year-old female with pain in the right wrist. History of lupus and Hodgkin's disease. COMPARISON: Radiographs of right hand from 02/01/2020. TECHNIQUE: MRI of the wrist was performed before and after the intravenous administration of 10 mL of Gadavist on a high-field scanner. FINDINGS: BONES AND JOINTS: The distal radius, ulna and radioulnar joint are normal. The ulna is properly positioned within the sigmoid notch. No DRUJ effusion. Carpal bones have normal alignment. No fracture or osteonecrosis. There is a 0.3 cm subarticular cyst of the distal capitate at the third carpometacarpal joint. No suspicious bone lesion. Small amount of fluid is present within the radiocarpal and pisotriquetral joints. There appears to be mildly thickened synovium of the pisotriquetral joint and there is enhancement of the synovium of this joint after contrast administration. There is edema and enhancement of the triquetral bone marrow. However, no erosions are seen. The pisiform has normal bone marrow signal. TRIANGULAR FIBROCARTILAGE: The triangular fibrocartilage disc is intact. The peripheral, fascicular attachments of the TFC to the ulnar styloid and fovea are grossly intact. The volar and dorsal radioulnar ligaments, and ulnotriquetral ligament, are unremarkable. INTRINSIC LIGAMENTS: There is intermediate signal intensity in the membranous portion of the scapholunate ligament. This signal possibly disrupts the proximal surface of the ligament, and this likely represents an old degenerative perforation. The dorsal and volar components of the scapholunate ligament are normal. The lunatotriquetral ligament has a normal appearance. TENDONS: Flexor and extensor tendons of the wrist are normal. No evidence of tendon tear or de Quervain's tenosynovitis. NERVES AND OTHER SOFT TISSUES: Median nerve has normal size and signal intensity as it courses through the carpal tunnel. The radial and ulnar neurovascular bundles are unremarkable. No lesions within Guyon's canal. A 0.3 x 0.5 x 0.6 cm ganglion cyst is noted volar to the region of the radial styloid. MR/MR wrist RT wo/w con IMPRESSION: * MR imaging findings of mild synovitis involving the pisotriquetral joint, and there is associated edema of the triquetrum. However, carpal bone erosions are seen. * The triangular fibrocartilage complex is intact. * There is a 0.3 x 0.5 x 0.6 cm ganglion cyst volar to the region of the radial styloid. * There is likely an old small degenerative perforation within the membranous portion of the scapholunate ligament.
== END 2021-04-17 10:18 | disposition home or self-care (01) ==
LOC: HO.MRI 10:17
PROVIDERS: Visit Provider Orthopaedic Surgery
DX: M79.89 Other specified soft tissue disorders (principal)
CPT/HCPCS: 73223; A9585

== ENCOUNTER → 2021-05-13 08:40 | Outpatient (BNVA) | payer MEDICAID, SELFPAY | PROVIDERS: Visit Provider Orthopaedic Surgery | DX: M79.641 Pain in right hand (principal); R20.0 Anesthesia of skin; R20.2 Paresthesia of skin | CPT/HCPCS: 99212 ==

== ENCOUNTER 2021-05-26 08:50 | Emergency (ER) | payer MEDICAID, SELFPAY ==
[2021-05-26 09:23] VITALS: BP 121/75; PULSE 88; RESP 18; TEMP 36.2; O2SAT 98; BMI 28.8
--- NOTE | 2021-05-26 10:08 | ED.DENTAL ---
HPI - Dental/Oral General Chief complaint: Dental/Oral Stated complaint: dental pain Time Seen by Provider: 05/26/21 09:26 Source: patient Mode of arrival: ambulatory Limitations: no limitations History of Present Illness HPI Narrative: 45-year-old female presenting with upper central dental pain that started yesterday. She reports the pain is severe and radiates up into her right jaw and ear. She is unable to sleep because of the pain. She has been taking Motrin & Tylenol with no improvement in the pain. She denies any cracking of her teeth or trauma. She denies any facial swelling. She denies any fever or chills. She does not recall the last time she saw a dentist. MD Complaint: tooth pain Location: Tooth # (Eight and 9) Onset (ago): day(s) Duration: constant Severity: severe Severity scale (1-10): 10 Relieving factors: nothing Exacerbating factors: nothing Context: history of dental caries and poor dental care Associated symptoms: gum swelling Treatment prior to arrival: none Related Data Home Medications Medication Instructions Recorded Confirmed apixaban 5 mg tablet (Eliquis) 5 mg PO BID 05/01/20 02/11/21 benztropine 0.5 mg tablet 0.5 mg PO DAILY 05/01/20 02/11/21 gabapentin 400 mg tablet 400 mg PO TID 05/01/20 02/11/21 risperidone 1 mg tablet 1 mg PO DAILY 05/01/20 02/11/21 sertraline 100 mg tablet 100 mg PO DAILY 05/01/20 02/11/21 Previous Rx's Medication Instructions Recorded adhesive bandage 1 #20 ea 05/21/20 alcohol swabs (Alcohol Prep Pads) 2 pad TOPICAL .COMPLEX #100 ea 05/21/20 naloxone 4 mg/actuation nasal 4 mg INTRANASAL Q2M PRN #2 ea 06/24/20 spray (Narcan) cyclobenzaprine 5 mg tablet 5 mg PO TID PRN #14 tab 08/12/20 prednisone 5 mg tablet 15 mg PO DAILY #90 tab 09/30/20 nystatin 100,000 unit/gram topical 1 appl TOPICAL TID #30 g 10/29/20 ointment acetaminophen 325 mg capsule 325 mg PO QID PRN #20 cap 11/29/20 (Tylenol) folic acid 1 mg tablet 1 mg PO QAM #90 tab 02/11/21 methotrexate sodium (PF) 25 mg/mL 25 mg SUBCUT QWEEK #8 ml 02/11/21 injection solution syringe with needle, safety 1 mL #50 ea 02/11/21 28 gauge x 1/2 (Monoject TB Safety Syringe) abatacept 125 mg/mL subcutaneous 125 mg SUBCUT QWEEK #4 ml 04/29/21 auto-injector (Orencia ClickJect) ibuprofen 600 mg tablet 600 mg PO Q8H PRN #20 tab 05/26/21 oxycodone-acetaminophen 5 mg-325 1 tab PO Q6H PRN #7 tab 05/26/21 mg tablet (Percocet) penicillin V potassium 500 mg 500 mg PO TID 7 Days #21 tab 05/26/21 tablet Allergies Allergy/AdvReac Type Severity Reaction Status Date / Time almond [ALMONDS] Allergy Severe ANAPHYLAXIS Verified 05/13/21 08:57 adhesive tape [ADHESIVE TAPE] Allergy Intermediate RASH Verified 05/13/21 08:57 morphine [MORPHINE] Allergy Intermediate GI UPSET, Verified 05/13/21 08:57 difficulty breathing tramadol [TRAMADOL] AdvReac Unknown NAUSEA & Verified 05/13/21 08:57 VOMITING Review of Systems Review of Systems: Constitutional: No Fever, No Chills ENT/Mouth: No sore throat, No Rhinorrhea, No Swallowing Difficulty, +dental pain, +right ear pain Eyes: No Eye Pain, No Swelling, No Redness Cardiovascular: No Chest Pain, No SOB= Gastrointestinal: No Nausea, No Vomiting Neuro: No Dizziness, + Headache Heme/Lymph: No Lymphadenopathy PMFSH Past Medical History Medical History Acute arthritis Bleeding hemorrhoid Chronic GERD De Quervain's disease (tenosynovitis) Degeneration of intervertebral disc at C4-C5 level Degeneration, intervertebral disc, lumbar Depressive disorder Esophageal dysphagia Fibromyalgia Frequency-urgency syndrome Gallstones Hodgkin disease Nocturia Osteoarthritis of spine with radiculopathy, lumbar region Rheumatoid arthritis involving multiple sites Seropositive rheumatoid arthritis Stress incontinence in female Systemic lupus erythematosus Urgency-frequency syndrome Vitamin D deficiency Surgical History History of esophagogastroduodenoscopy (EGD) History of lymph node dissection of left axilla History of repair of inguinal hernia Social History Social History Alcohol intake: current Alcohol intake frequency: holidays/special occasions only Patient Tobacco Use Status: Never used Tobacco Substance Use Type: Marijuana Advance Directives: Yes Advance Directives on File: Yes Advance Directives Date on File: 09/23/20 Patient : No Current occupational status: disabled 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 Oriented X3. Appears uncomfortable. HEENT: normal external inspection face is symmetrical. Poor dentition throughout, caries present tooth 8 and 9 are tender with associated gingival erythema and swelling, no for palpable fluctuance or abscess. No trismus. Normal tympanic membranes bilaterally. CVS: Normal heart rate and rhythm. Pulses normal. Respiratory: No respiratory distress. Skin: Skin warm and dry. Normal skin color. Normal skin turgor. No rashes. Extremities: Atraumatic, no edema. Neuro: Oriented X 3. No motor deficit. No sensory deficit. Course Course Course Narrative: 45-year-old female presenting with nontraumatic upper dental pain that radiates into her face and ear. No palpable abscess on examination. No trismus. Be provided a list of emergency dentist and she agrees to call them today. Will start empiric antibiotics and treat her pain with short course of Percocet and around the clock ibuprofen. Patient agrees with plan and will follow-up with a dentist and her primary care this week. Stable for discharge home. Critical Care Time Critical Care Time Critical Care Time: No Discharge Plan Discharge Clinical Impression: Toothache Patient Disposition: Home, Self-Care Instructions: Toothache (ED) Additional Instructions: Follow-up with 1 of the dentist on the list provided as soon as possible. Take all the medications as prescribed. Do not drive after taking the oxycodone, it can notmake you drowsy. Follow-up with your doctor this week. Prescriptions: New ibuprofen 600 mg tablet 600 mg PO Q8H PRN (Reason: pain) Qty: 20 RF: 0 oxycodone-acetaminophen [Percocet] 5-325 mg tablet 1 tab PO Q6H PRN (Reason: pain) Qty: 7 RF: 0 penicillin V potassium 500 mg tablet 500 mg PO TID 7 Days Qty: 21 RF: 0 No Action alcohol swabs [Alcohol Prep Pads] Pads, Medicated 2 pad topical .COMPLEX Qty: 100 RF: 3 (DME) adhesive bandage 1 bandage See Rx Instructions .ROUTE .MEDSUPPLY Qty: 20 RF: 5 Narcan 4 mg/actuation spray,non-aerosol 4 mg intranasal Q2M PRN (Reason: opioid overdose) Qty: 2 RF: 0 Orencia ClickJect 125 mg/mL auto-injector 125 mg subcut QWEEK Qty: 4 RF: 2 cyclobenzaprine 5 mg tablet 5 mg PO TID PRN (Reason: muscle spasm) Qty: 14 RF: 0 nystatin 100,000 unit/gram ointment 1 appl topical TID Qty: 30 RF: 0 acetaminophen [Tylenol] 325 mg capsule 325 mg PO QID PRN (Reason: fever or pain) Qty: 20 RF: 0 benztropine 0.5 mg Tablet 0.5 mg PO DAILY RF: 0 sertraline 100 mg Tablet 100 mg PO DAILY RF: 0 risperidone 1 mg Tablet 1 mg PO DAILY RF: 0 gabapentin 400 mg Tablet 400 mg PO TID RF: 0 Eliquis 5 mg Tablet 5 mg PO BID RF: 0 (DME) Monoject TB Safety Syringe 1 mL 28 gauge x 1/2 syringe See Rx Instructions .ROUTE .MEDSUPPLY Qty: 50 RF: 1 methotrexate sodium (PF) 25 mg/mL solution 25 mg subcut QWEEK Qty: 8 RF: 3 folic acid 1 mg tablet 1 mg PO QAM Qty: 90 RF: 3 prednisone 5 mg tablet 15 mg PO DAILY Qty: 90 RF: 2 Interventions: ED Discharge Assessment Last Done: 05/26/21 10:21 Print Language: Guyanese
[2021-05-26] MEDS: oxyCODONE HCl Immed Release 5 MG TABLET PO (10:16)
[2021-05-26] MEDS: Ketorolac Tromethamine 15 MG/ML VIAL 30 MG IM (10:16)
[2021-05-26 10:28] VITALS: RESP 18
== END 2021-05-26 10:29 | disposition home or self-care (01) ==
PROVIDERS: Emergency Provider Emergency Medicine
DX: K08.89 Other specified disorders of teeth and supporting structures (principal); K02.9 Dental caries, unspecified; M32.9 Systemic lupus erythematosus, unspecified; Z79.899 Other long term (current) drug therapy
CPT/HCPCS: 96372; 99283; 99284; J1885

== ENCOUNTER 2021-06-08 07:51 | Emergency (ER) | payer MEDICAID, SELFPAY ==
--- NOTE | ~2021-06-08 | XR_ITS ---
EXAMINATION: 1. RADIOGRAPHS LEFT ELBOW 2. RADIOGRAPHS LEFT HAND CLINICAL INFORMATION: Pain and swelling. COMPARISON: Left hand x-rays 05/08/2020 TECHNIQUE: 3 views of the left elbow and 3 views of the left hand were obtained. FINDINGS: Left elbow: No fracture or dislocation of the left elbow. No joint effusion. Mild soft tissue swelling overlying the olecranon process. No significant degenerative changes. No radiopaque foreign body. Left hand: Visualized portion of the distal radius and ulna demonstrate no fracture. There is mild ulnar negative variance. Carpal rows are well-maintained. No carpal, metacarpal or phalangeal fracture. Mild erosive changes are again noted involving the third DIP joint although soft tissue swelling appears less prominent in this region on today's radiographs. There has however been interval development of soft tissue swelling involving the distal fifth finger with decreased fifth DIP joint space and subtle erosive changes. XR/XR elbow LT 2V IMPRESSION: 1. Soft tissue swelling of the left elbow without other gross abnormality. 2. Interval development of erosive arthritic changes involving the fifth DIP joint with mild erosive changes again noted within the third DIP joint. Findings are nonspecific but most suggestive of psoriatic arthritis. Clinical correlation recommended.
--- NOTE | ~2021-06-08 | XR_ITS ---
EXAMINATION: 1. RADIOGRAPHS LEFT ELBOW 2. RADIOGRAPHS LEFT HAND CLINICAL INFORMATION: Pain and swelling. COMPARISON: Left hand x-rays 05/08/2020 TECHNIQUE: 3 views of the left elbow and 3 views of the left hand were obtained. FINDINGS: Left elbow: No fracture or dislocation of the left elbow. No joint effusion. Mild soft tissue swelling overlying the olecranon process. No significant degenerative changes. No radiopaque foreign body. Left hand: Visualized portion of the distal radius and ulna demonstrate no fracture. There is mild ulnar negative variance. Carpal rows are well-maintained. No carpal, metacarpal or phalangeal fracture. Mild erosive changes are again noted involving the third DIP joint although soft tissue swelling appears less prominent in this region on today's radiographs. There has however been interval development of soft tissue swelling involving the distal fifth finger with decreased fifth DIP joint space and subtle erosive changes. XR/XR hand LT 2V IMPRESSION: 1. Soft tissue swelling of the left elbow without other gross abnormality. 2. Interval development of erosive arthritic changes involving the fifth DIP joint with mild erosive changes again noted within the third DIP joint. Findings are nonspecific but most suggestive of psoriatic arthritis. Clinical correlation recommended.
[2021-06-08 07:56] VITALS: BP 141/91; PULSE 77; RESP 17; TEMP 36.7; O2SAT 97; BMI 25.8
--- NOTE | 2021-06-08 09:14 | ED_ITS ---
HPI - Extremity Problem General Chief complaint: Extremity Problem Stated complaint: elbow/hand pain Time Seen by Provider: 06/08/21 08:14 History of Present Illness HPI Narrative: Patient is a 45-year-old female with a history of lupus. History of rheumatoid arthritis. Patient lost to healthcare. Complaining of pain to the left hand. Getting worse over the last 3 days. Over the last 24 hours has now extended to the elbow. The pain is excruciating. 05/10. Patient denies any fever chills no trauma. No nausea no vomiting no coughing or congestion or upper respiratory symptoms. Previous history of non-Hodgkin's lymphoma over 20 years ago. Related Data Home Medications Medication Instructions Recorded Confirmed apixaban 5 mg tablet (Eliquis) 5 mg PO BID 05/01/20 02/11/21 benztropine 0.5 mg tablet 0.5 mg PO DAILY 05/01/20 02/11/21 gabapentin 400 mg tablet 400 mg PO TID 05/01/20 02/11/21 risperidone 1 mg tablet 1 mg PO DAILY 05/01/20 02/11/21 sertraline 100 mg tablet 100 mg PO DAILY 05/01/20 02/11/21 Previous Rx's Medication Instructions Recorded adhesive bandage 1 #20 ea 05/21/20 alcohol swabs (Alcohol Prep Pads) 2 pad TOPICAL .COMPLEX #100 ea 05/21/20 naloxone 4 mg/actuation nasal 4 mg INTRANASAL Q2M PRN #2 ea 06/24/20 spray (Narcan) cyclobenzaprine 5 mg tablet 5 mg PO TID PRN #14 tab 08/12/20 prednisone 5 mg tablet 15 mg PO DAILY #90 tab 09/30/20 nystatin 100,000 unit/gram topical 1 appl TOPICAL TID #30 g 10/29/20 ointment acetaminophen 325 mg capsule 325 mg PO QID PRN #20 cap 11/29/20 (Tylenol) folic acid 1 mg tablet 1 mg PO QAM #90 tab 02/11/21 methotrexate sodium (PF) 25 mg/mL 25 mg SUBCUT QWEEK #8 ml 02/11/21 injection solution syringe with needle, safety 1 mL #50 ea 02/11/21 28 gauge x 1/2 (Monoject TB Safety Syringe) abatacept 125 mg/mL subcutaneous 125 mg SUBCUT QWEEK #4 ml 04/29/21 auto-injector (Orencia ClickJect) ibuprofen 600 mg tablet 600 mg PO Q8H PRN #20 tab 05/26/21 oxycodone-acetaminophen 5 mg-325 1 tab PO Q6H PRN #7 tab 05/26/21 mg tablet (Percocet) penicillin V potassium 500 mg 500 mg PO TID 7 Days #21 tab 05/26/21 tablet oxycodone-acetaminophen 5 mg-325 1 tab PO Q6H PRN #7 tab 06/08/21 mg tablet (Percocet) prednisone 10 mg tablet 10 mg PO DAILY #7 tab 06/08/21 Allergies Allergy/AdvReac Type Severity Reaction Status Date / Time almond [ALMONDS] Allergy Severe ANAPHYLAXIS Verified 05/13/21 08:57 adhesive tape [ADHESIVE TAPE] Allergy Intermediate RASH Verified 05/13/21 08:57 morphine [MORPHINE] Allergy Intermediate GI UPSET, Verified 05/13/21 08:57 difficulty breathing tramadol [TRAMADOL] AdvReac Unknown NAUSEA & Verified 05/13/21 08:57 VOMITING PMFSH Past Medical History Medical History Acute arthritis Bleeding hemorrhoid Chronic GERD De Quervain's disease (tenosynovitis) Degeneration of intervertebral disc at C4-C5 level Degeneration, intervertebral disc, lumbar Depressive disorder Esophageal dysphagia Fibromyalgia Frequency-urgency syndrome Gallstones Hodgkin disease Nocturia Osteoarthritis of spine with radiculopathy, lumbar region Rheumatoid arthritis involving multiple sites Seropositive rheumatoid arthritis Stress incontinence in female Systemic lupus erythematosus Urgency-frequency syndrome Vitamin D deficiency Surgical History History of esophagogastroduodenoscopy (EGD) History of lymph node dissection of left axilla History of repair of inguinal hernia Social History Social History Alcohol intake: current Alcohol intake frequency: holidays/special occasions only Patient Tobacco Use Status: Never used Tobacco Substance Use Type: Marijuana Advance Directives: Yes Advance Directives on File: Yes Advance Directives Date on File: 09/23/20 Current occupational status: disabled 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 Patient is not sure the dose of methotrexate she is taking. Patient is also on an immunologic and she is not taking that for the last 3 months. The pain is similar to previous bouts of rheumatoid arthritis. Luckily patient has an appointment with Dr. Nolan at [facility] in 3 days. Patient's case discussed with Dr. Nolan. Will start patient on prednisone 10 mg for the next 5 days. Will also give patient 3 days of pain meds. Close follow-up with Rheumatology on an outpatient basis. In stable condition. Lab Data Result diagrams: 06/08/21 09:12 06/08/21 09:12 Labs: Lab Results 06/08/21 06/08/21 Range/Units 09:12 09:12 WBC 5.3 (4.8-10.8) X10*3/uL RBC 3.83 L (4.20-5.50) X10*6/uL Hgb 11.7 L (12.0-16.0) g/dl Hct 36.1 L (37.0-47.0) % MCV 94.3 (80.0-98.0) fL MCH 30.5 (27.0-33.0) pg MCHC 32.4 (31.0-35.0) g/dl RDW 13.4 (11.0-16.0) % Plt Count 267 (160-400) X10*3/uL MPV 9.7 (9.4-12.3) fL Immature Gran % (Auto) 0.2 (0.0-0.4) % Neut % (Auto) 33.1 L (45-73) % Lymph % (Auto) 58.8 H (20-40) % [place] % (Auto) 6.6 (2-11) % Eos % (Auto) 1.1 (0-4) % Baso % (Auto) 0.2 (0-2) % Lymph # (Auto) 3.1 (1.2-4.9) X10*3/uL [place] # (Auto) 0.4 (0.1-1.2) X10*3/uL Eos # (Auto) 0.1 (0.0-0.4) X10*3/uL Baso # (Auto) 0.0 (0.0-0.2) X10*3/uL Abs Immat Gran (auto) 0.01 (0.00-0.03) X10*3/uL Absolute Neuts (auto) 1.8 L (2.0-8.3) x10*3/uL Absolute Nucleated RBC 0.000 (0.0-0.012) X10*3/uL Nucleated RBC % (auto) 0.0 (0.0-0.2) /100WBC Sodium 138 (135-145) mmol/L Potassium 3.7 (3.3-5.1) mmol/L Chloride 107 (96-108) mmol/L Carbon Dioxide 23 (22-29) mmol/L Anion Gap 12 (12-20) BUN 11 (9-16) mg/dL Creatinine 0.76 (0.5-1.4) mg/dL Estim Creat Clear Calc 96.3 Estimated GFR > 60 Random Glucose 84 (60-115) mg/dL Calcium 8.6 D (8.4-10.2) mg/dL Discharge Plan Discharge Clinical Impression: Rheumatoid arthritis flare Patient Disposition: Home, Self-Care Instructions: Rheumatoid Arthritis (ED) Prescriptions: New prednisone 10 mg tablet 10 mg PO DAILY Qty: 7 RF: 0 oxycodone-acetaminophen [Percocet] 5-325 mg tablet 1 tab PO Q6H PRN (Reason: pain) Qty: 7 RF: 0 No Action alcohol swabs [Alcohol Prep Pads] Pads, Medicated 2 pad topical .COMPLEX Qty: 100 RF: 3 (DME) adhesive bandage 1 bandage See Rx Instructions .ROUTE .MEDSUPPLY Qty: 20 RF: 5 Narcan 4 mg/actuation spray,non-aerosol 4 mg intranasal Q2M PRN (Reason: opioid overdose) Qty: 2 RF: 0 Orencia ClickJect 125 mg/mL auto-injector 125 mg subcut QWEEK Qty: 4 RF: 2 cyclobenzaprine 5 mg tablet 5 mg PO TID PRN (Reason: muscle spasm) Qty: 14 RF: 0 nystatin 100,000 unit/gram ointment 1 appl topical TID Qty: 30 RF: 0 acetaminophen [Tylenol] 325 mg capsule 325 mg PO QID PRN (Reason: fever or pain) Qty: 20 RF: 0 benztropine 0.5 mg Tablet 0.5 mg PO DAILY RF: 0 sertraline 100 mg Tablet 100 mg PO DAILY RF: 0 risperidone 1 mg Tablet 1 mg PO DAILY RF: 0 gabapentin 400 mg Tablet 400 mg PO TID RF: 0 Eliquis 5 mg Tablet 5 mg PO BID RF: 0 ibuprofen 600 mg tablet 600 mg PO Q8H PRN (Reason: pain) Qty: 20 RF: 0 oxycodone-acetaminophen [Percocet] 5-325 mg tablet 1 tab PO Q6H PRN (Reason: pain) Qty: 7 RF: 0 penicillin V potassium 500 mg tablet 500 mg PO TID 7 Days Qty: 21 RF: 0 (DME) Monoject TB Safety Syringe 1 mL 28 gauge x 1/2 syringe See Rx Instructions .ROUTE .MEDSUPPLY Qty: 50 RF: 1 methotrexate sodium (PF) 25 mg/mL solution 25 mg subcut QWEEK Qty: 8 RF: 3 folic acid 1 mg tablet 1 mg PO QAM Qty: 90 RF: 3 prednisone 5 mg tablet 15 mg PO DAILY Qty: 90 RF: 2 Referrals: Physician,Unknown J [Primary Care Provider] - 2 days (Follow-up with Dr. Nolan in 3 days.) Print Language: Citizen [place]
[2021-06-08 09:16] LABS: MANUAL DIFF FLAG NO
[2021-06-08 09:19] LABS: Basophils Percent Auto 0.2 % (0-2); Eosinophils Absolute Auto 0.1 X10*3/uL (0.0-0.4); Eosinophils Percent Auto 1.1 % (0-4); Hematocrit 36.1 % (37.0-47.0); Hemoglobin 11.7 g/dl (12.0-16.0); Imm Gran Abs Auto 0.01 X10*3/uL (0.00-0.03); Imm Gran Pct Auto 0.2 % (0.0-0.4); Lymphocytes Absolute Auto 3.1 X10*3/uL (1.2-4.9); Lymphocytes Percent Auto 58.8 % (20-40); Mean Corpuscular HGB Conc 32.4 g/dl (31.0-35.0); Mean Corpuscular Hemoglobin 30.5 pg (27.0-33.0); Mean Corpuscular Volume 94.3 fL (80.0-98.0); Mean Platelet Volume 9.7 fL (9.4-12.3); Monocytes Absolute Auto 0.4 X10*3/uL (0.1-1.2); Monocytes Percent Auto 6.6 % (2-11); Neutrophils Absolute Auto 1.8 x10*3/uL (2.0-8.3); Neutrophils Percent Auto 33.1 % (45-73); Platelet Count 267 X10*3/uL (160-400); Red Blood Count 3.83 X10*6/uL (4.20-5.50); Red Cell Distribution Width 13.4 % (11.0-16.0); White Blood Count 5.3 X10*3/uL (4.8-10.8)
[2021-06-08 09:38] LABS: Anion Gap 12 (12-20); Blood Urea Nitrogen 11 mg/dL (9-16); Calcium 8.6 mg/dL (8.4-10.2); Carbon Dioxide 23 mmol/L (22-29); Chloride 107 mmol/L (96-108); Creatinine Clr Calc Pharmacy 96.3; Estimated Glomerular Filt Rate > 60; Glucose Random 84 mg/dL (60-115); Potassium 3.7 mmol/L (3.3-5.1); Sodium 138 mmol/L (135-145)
--- NOTE | 2021-06-08 10:41 | PC.NURSE ---
@10:41AM DR TRAVIS REQUEST CALL OUT TO DR PINEDA OFFICE [phone] PT FIRST APPOINTMENT WILL BE 06/11/21
[2021-06-08] MEDS: oxyCODONE HCl Immed Release 5 MG TABLET PO (11:08)
[2021-06-08] MEDS: predniSONE 10 MG TABLET PO (11:09)
== END 2021-06-08 11:14 | disposition home or self-care (01) ==
PROVIDERS: Emergency Provider Emergency Medicine Emergency Medical Services
DX: M06.9 Rheumatoid arthritis, unspecified (principal); M79.602 Pain in left arm; F12.90 Cannabis use, unspecified, uncomplicated; Z79.899 Other long term (current) drug therapy
CPT/HCPCS: 36415; 73070; 73120; 80048; 85025; 99212; 99283; 99284

== ENCOUNTER 2021-06-12 06:51 | Emergency (ER) | payer MEDICAID, SELFPAY ==
[2021-06-12 06:53] VITALS: BP 136/76; PULSE 98; RESP 20; TEMP 36.8; O2SAT 99; BMI 30.1
--- NOTE | 2021-06-12 07:41 | ED_ITS ---
HPI - Extremity Problem General Chief complaint: Extremity Problem Stated complaint: hand pain Time Seen by Provider: 06/12/21 07:09 History of Present Illness HPI Narrative: Patient is a 45-year-old female with a history of fibromyalgia. History of rheumatoid arthritis. Was seen in the emergency department approximately 1 week prior. At the time case was discussed with the rheumatol ogist at [facility]. Patient started on steroid. Patient received follow-up with Rheumatology yesterday. Additional x-ray and labs were drawn. Patient presented back to the emergency department today because of increasing pain to both hands. The elbow pain has subsided. There is swelling to both hands. Patient try lidocaine patch did not help. Crying in pain complaining of pain mostly in the metacarpal pharyngeal area of bilateral hands. No fever no chills no systemic complaints. Pain is very similar to previous bouts of rheumatoid pain. Related Data Home Medications Medication Instructions Recorded Confirmed apixaban 5 mg tablet (Eliquis) 5 mg PO BID 05/01/20 02/11/21 benztropine 0.5 mg tablet 0.5 mg PO DAILY 05/01/20 02/11/21 gabapentin 400 mg tablet 400 mg PO TID 05/01/20 02/11/21 risperidone 1 mg tablet 1 mg PO DAILY 05/01/20 02/11/21 sertraline 100 mg tablet 100 mg PO DAILY 05/01/20 02/11/21 Previous Rx's Medication Instructions Recorded adhesive bandage 1 #20 ea 05/21/20 alcohol swabs (Alcohol Prep Pads) 2 pad TOPICAL .COMPLEX #100 ea 05/21/20 naloxone 4 mg/actuation nasal 4 mg INTRANASAL Q2M PRN #2 ea 06/24/20 spray (Narcan) cyclobenzaprine 5 mg tablet 5 mg PO TID PRN #14 tab 08/12/20 prednisone 5 mg tablet 15 mg PO DAILY #90 tab 09/30/20 nystatin 100,000 unit/gram topical 1 appl TOPICAL TID #30 g 10/29/20 ointment acetaminophen 325 mg capsule 325 mg PO QID PRN #20 cap 11/29/20 (Tylenol) folic acid 1 mg tablet 1 mg PO QAM #90 tab 02/11/21 syringe with needle, safety 1 mL #50 ea 02/11/21 28 gauge x 1/2 (Monoject TB Safety Syringe) abatacept 125 mg/mL subcutaneous 125 mg SUBCUT QWEEK #4 ml 04/29/21 auto-injector (Orencia ClickJect) oxycodone-acetaminophen 5 mg-325 1 tab PO Q6H PRN #7 tab 05/26/21 mg tablet (Percocet) penicillin V potassium 500 mg 500 mg PO TID 7 Days #21 tab 05/26/21 tablet oxycodone-acetaminophen 5 mg-325 1 tab PO Q6H PRN #7 tab 06/08/21 mg tablet (Percocet) pantoprazole 40 mg tablet,delayed 40 mg PO DAILY #90 tab 06/08/21 release prednisone 10 mg tablet 10 mg PO DAILY #7 tab 06/08/21 Allergies Allergy/AdvReac Type Severity Reaction Status Date / Time almond [ALMONDS] Allergy Severe ANAPHYLAXIS Verified 06/08/21 11:29 adhesive tape [ADHESIVE TAPE] Allergy Intermediate RASH Verified 06/08/21 11:29 morphine [MORPHINE] Allergy Intermediate GI UPSET, Verified 06/08/21 11:29 difficulty breathing tramadol [TRAMADOL] AdvReac Unknown NAUSEA & Verified 06/08/21 11:29 VOMITING Review of Systems Review of Systems: No fever no chills no cough no congestion no systemic complaint Yes all other systems are reviewed and are negative [facility] Past Medical History Attestation statement: The following information was validated with the patient. Medical History Acute arthritis Bleeding hemorrhoid Chronic GERD De Quervain's disease (tenosynovitis) Degeneration of intervertebral disc at C4-C5 level Degeneration, intervertebral disc, lumbar Depressive disorder Esophageal dysphagia Fibromyalgia Frequency-urgency syndrome Gallstones Hodgkin disease Nocturia Osteoarthritis of spine with radiculopathy, lumbar region Rheumatoid arthritis involving multiple sites Seropositive rheumatoid arthritis Stress incontinence in female Systemic lupus erythematosus Urgency-frequency syndrome Vitamin D deficiency Surgical History History of esophagogastroduodenoscopy (EGD) History of lymph node dissection of left axilla History of repair of inguinal hernia Social History Social History Alcohol intake: current Alcohol intake frequency: does not drink Patient Tobacco Use Status: Current everyday Tobacco user Smoked in Last 30 Days: Yes Use of substances other than those prescribed or required for medical reasons: Yes Substance Use Type: Marijuana Advance Directives: Yes Advance Directives on File: Yes Advance Directives Date on File: 09/23/20 Patient : No Current occupational status: disabled 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 Oriented X3. No acute distress. Eyes: Pupils equal, round and reactive to light. ENT: Pharynx normal. Neck: Normal inspection. Neck supple. No lymph nodes noted. No crepitus CVS: Normal heart rate and rhythm. Pulses normal. Normal S1 and S2 Respiratory: No respiratory distress. Breath sounds normal. No Wheezing. No rales Abdomen: Soft and nontender. No rigidity. No distention. good BS x4 Skin: Skin warm and dry. Normal skin color. Normal skin turgor. Extremities: No lower extremity edema. Neurovascular intact to all extremities. Positive swelling to bilateral hands. Most significantly over the dorsum of the hand and over the metacarpal pharyngeal joint bilaterally. Capillary refill intact. Sensation intact. Skin intact. Neuro: Oriented X 3. No motor deficit. No sensory deficit. Moving all extermities. No slurred speech MDM - Extremity (Nontraumatic) MDM Narrative Medical decision making narrative: Patient's case discussed with Dr. Nolan from Rheumatology. Will give a additional dose of steroids here in the emergency department. Pain medication given for acute pain. Close follow-up with him on an outpatient basis. In stable condition. Lab Data Attestation: I reviewed the patient's lab results. Result diagrams: 06/12/21 07:59 06/12/21 07:59 Labs: Lab Results 06/12/21 06/12/21 Range/Units 07:59 07:59 WBC 6.5 (4.8-10.8) X10*3/uL RBC 3.70 L (4.20-5.50) X10*6/uL Hgb 11.4 L (12.0-16.0) g/dl Hct 34.7 L (37.0-47.0) % MCV 93.8 (80.0-98.0) fL MCH 30.8 (27.0-33.0) pg MCHC 32.9 (31.0-35.0) g/dl RDW 13.6 (11.0-16.0) % Plt Count 257 (160-400) X10*3/uL MPV 9.6 (9.4-12.3) fL Immature Gran % (Auto) 0.3 (0.0-0.4) % Neut % (Auto) 61.3 (45-73) % Lymph % (Auto) 31.3 (20-40) % [place] % (Auto) 5.9 (2-11) % Eos % (Auto) 0.9 (0-4) % Baso % (Auto) 0.3 (0-2) % Lymph # (Auto) 2.0 (1.2-4.9) X10*3/uL [place] # (Auto) 0.4 (0.1-1.2) X10*3/uL Eos # (Auto) 0.1 (0.0-0.4) X10*3/uL Baso # (Auto) 0.0 (0.0-0.2) X10*3/uL Abs Immat Gran (auto) 0.02 (0.00-0.03) X10*3/uL Absolute Neuts (auto) 4.0 (2.0-8.3) x10*3/uL Absolute Nucleated RBC 0.000 (0.0-0.012) X10*3/uL Nucleated RBC % (auto) 0.0 (0.0-0.2) /100WBC Sodium 136 (135-145) mmol/L Potassium 3.7 (3.3-5.1) mmol/L Chloride 104 (96-108) mmol/L Carbon Dioxide 26 (22-29) mmol/L Anion Gap 10 L (12-20) BUN 13 (9-16) mg/dL Creatinine 0.76 (0.5-1.4) mg/dL Estim Creat Clear Calc 92.8 Estimated GFR > 60 Random Glucose 94 (60-115) mg/dL Calcium 9.0 (8.4-10.2) mg/dL Discharge Plan Discharge Clinical Impression: Rheumatoid arthritis Patient Disposition: Home, Self-Care Instructions: Rheumatoid Arthritis (ED) Prescriptions: No Action alcohol swabs [Alcohol Prep Pads] Pads, Medicated 2 pad topical .COMPLEX Qty: 100 RF: 3 (DME) adhesive bandage 1 bandage See Rx Instructions .ROUTE .MEDSUPPLY Qty: 20 RF: 5 Narcan 4 mg/actuation spray,non-aerosol 4 mg intranasal Q2M PRN (Reason: opioid overdose) Qty: 2 RF: 0 Orencia ClickJect 125 mg/mL auto-injector 125 mg subcut QWEEK Qty: 4 RF: 2 cyclobenzaprine 5 mg tablet 5 mg PO TID PRN (Reason: muscle spasm) Qty: 14 RF: 0 nystatin 100,000 unit/gram ointment 1 appl topical TID Qty: 30 RF: 0 acetaminophen [Tylenol] 325 mg capsule 325 mg PO QID PRN (Reason: fever or pain) Qty: 20 RF: 0 benztropine 0.5 mg Tablet 0.5 mg PO DAILY RF: 0 sertraline 100 mg Tablet 100 mg PO DAILY RF: 0 risperidone 1 mg Tablet 1 mg PO DAILY RF: 0 gabapentin 400 mg Tablet 400 mg PO TID RF: 0 Eliquis 5 mg Tablet 5 mg PO BID RF: 0 oxycodone-acetaminophen [Percocet] 5-325 mg tablet 1 tab PO Q6H PRN (Reason: pain) Qty: 7 RF: 0 penicillin V potassium 500 mg tablet 500 mg PO TID 7 Days Qty: 21 RF: 0 prednisone 10 mg tablet 10 mg PO DAILY Qty: 7 RF: 0 oxycodone-acetaminophen [Percocet] 5-325 mg tablet 1 tab PO Q6H PRN (Reason: pain) Qty: 7 RF: 0 (DME) Monoject TB Safety Syringe 1 mL 28 gauge x 1/2 syringe See Rx Instructions .ROUTE .MEDSUPPLY Qty: 50 RF: 1 folic acid 1 mg tablet 1 mg PO QAM Qty: 90 RF: 3 prednisone 5 mg tablet 15 mg PO DAILY Qty: 90 RF: 2 pantoprazole 40 mg tablet,delayed release (DR/EC) 40 mg PO DAILY Qty: 90 RF: 1 Referrals: Luis Nolan MD [Physician] - 2 days
[2021-06-12 08:03] LABS: Basophils Percent Auto 0.3 % (0-2); Eosinophils Absolute Auto 0.1 X10*3/uL (0.0-0.4); Eosinophils Percent Auto 0.9 % (0-4); Hematocrit 34.7 % (37.0-47.0); Hemoglobin 11.4 g/dl (12.0-16.0); Imm Gran Abs Auto 0.02 X10*3/uL (0.00-0.03); Imm Gran Pct Auto 0.3 % (0.0-0.4); Lymphocytes Percent Auto 31.3 % (20-40); MANUAL DIFF FLAG NO; Mean Corpuscular HGB Conc 32.9 g/dl (31.0-35.0); Mean Corpuscular Hemoglobin 30.8 pg (27.0-33.0); Mean Corpuscular Volume 93.8 fL (80.0-98.0); Mean Platelet Volume 9.6 fL (9.4-12.3); Monocytes Absolute Auto 0.4 X10*3/uL (0.1-1.2); Monocytes Percent Auto 5.9 % (2-11); Neutrophils Percent Auto 61.3 % (45-73); Platelet Count 257 X10*3/uL (160-400); Red Cell Distribution Width 13.6 % (11.0-16.0); White Blood Count 6.5 X10*3/uL (4.8-10.8)
[2021-06-12] MEDS: methylPREDNISolone Sod Succ 125 MG/2 ML VIAL 60 MG IVPUSH (08:08)
[2021-06-12] MEDS: HYDROmorphone HCl 1 MG/ML SYRINGE IVPUSH (08:08)
[2021-06-12] MEDS: ondansetron HCL 4 MG/2 ML VIAL IVPUSH (08:08)
[2021-06-12 08:10] VITALS: BP 127/74; PULSE 79; RESP 20; O2SAT 97
[2021-06-12 08:18] LABS: Anion Gap 10 (12-20); Blood Urea Nitrogen 13 mg/dL (9-16); Carbon Dioxide 26 mmol/L (22-29); Chloride 104 mmol/L (96-108); Creatinine Clr Calc Pharmacy 92.8; Estimated Glomerular Filt Rate > 60; Glucose Random 94 mg/dL (60-115); Potassium 3.7 mmol/L (3.3-5.1); Sodium 136 mmol/L (135-145)
[2021-06-12 09:08] VITALS: BP 117/69; PULSE 72; RESP 16; O2SAT 97
[2021-06-12] MEDS: Magnesium Hydrox/Alum Hydrox 30 ML ORAL.SUSP PO (09:10)
== END 2021-06-12 09:40 | disposition home or self-care (01) ==
PROVIDERS: Emergency Provider Emergency Medicine Emergency Medical Services
DX: M05.79 Rheumatoid arthritis with rheumatoid factor of multiple sites without organ or systems involvement (principal); M79.7 Fibromyalgia
CPT/HCPCS: 36415; 80048; 85025; 96374; 96375; 99284; J1170; J2405; J2930

== ENCOUNTER 2021-07-03 08:32 | Outpatient (REF) | payer MEDICAID, SELFPAY ==
--- NOTE | 2021-07-03 08:36 | EMG_ITS ---
HISTORY OF PRESENT ILLNESS: This is a 45-year-old woman with a history of bilateral upper extremity pain and numbness and swelling in the fingers for the last 5 months. PHYSICAL EXAMINATION: On examination, she is alert and oriented with normal intellectual functions. Cranial nerves II through XII are normal. Muscle tone and strength are normal in all 4 extremities. Deep tendon reflexes symmetrical, 2+. Plantar response are flexor. No Tinel or Phalen sign. IMPRESSION: Rule out carpal tunnel syndrome. Impression nerve conduction EMG study: Early carpal tunnel syndrome on the right. Otherwise normal study. Normal EMG of the right C5-T1 innervated muscles. MD RITA West/AMY / [id number]
== END 2021-07-03 08:33 | disposition home or self-care (01) ==
LOC: HO.NEURO 08:32
PROVIDERS: Visit Provider Orthopaedic Surgery
DX: R20.0 Anesthesia of skin (principal); R20.2 Paresthesia of skin
CPT/HCPCS: 95885; 95913

== ENCOUNTER 2021-07-10 11:02 | Outpatient (REF) | payer MEDICAID, SELFPAY ==
--- NOTE | ~2021-07-10 | XR_ITS ---
EXAMINATION: XR ANKLE, RIGHT CLINICAL INFORMATION: Right ankle pain. COMPARISON: None TECHNIQUE: AP, lateral, and mortise views of the right ankle. FINDINGS: The bones and soft tissues are normal. No fracture. Alignment is anatomic. Joint spaces are maintained. No joint effusion. XR/XR ankle RT min 3V IMPRESSION: Unremarkable right ankle exam.
== END 2021-07-10 11:03 | disposition home or self-care (01) ==
LOC: HO.XRAY 11:02
PROVIDERS: Absent Provider General Practice; PCP General Practice; Visit Provider Internal Medicine
DX: M25.571 Pain in right ankle and joints of right foot (principal)
CPT/HCPCS: 73610

== ENCOUNTER 2021-07-28 09:30 | Emergency (ER) | payer MEDICAID, SELFPAY ==
--- NOTE | ~2021-07-28 | XR_ITS ---
EXAMINATION: XR CHEST CLINICAL INFORMATION: Chest pain COMPARISON: August 12, 2020 TECHNIQUE: AP portable view of the chest was obtained. FINDINGS: No significant abnormality is noted involving the heart, lungs, mediastinum, bony thorax or soft tissues. Right axillary clips present. XR/XR chest 1V IMPRESSION: No acute disease
--- NOTE | 2021-07-28 09:42 | ECG_ITS ---
Test Reason : chest pain/med clearance Blood Pressure : / mmHG Vent. Rate : 074 BPM Atrial Rate : 074 BPM P-R Int : 160 ms QRS Dur : 100 ms QT Int : 376 ms P-R-T Axes : 067 -35 057 degrees QTc Int : 417 ms Normal sinus rhythm Left axis deviation Incomplete right bundle branch block Moderate voltage criteria for LVH, may be normal variant ( R in aVL , [place] product ) Septal infarct (cited on or before 23-OCT-2019) Abnormal ECG When compared with ECG of 12-AUG-2020 15:10, No significant change was found Referred By: Raymon Fregoso Electronically Signed By:Ruddy Larios
[2021-07-28 09:54] VITALS: BP 117/73; PULSE 76; RESP 17; TEMP 36.7; O2SAT 98; BMI 31.4
[2021-07-28 10:00] VITALS: BP 125/71; PULSE 58; RESP 18; TEMP 36.8; O2SAT 99
--- NOTE | 2021-07-28 11:37 | ECG_ITS ---
Test Reason : CHEST PAIN Blood Pressure : / mmHG Vent. Rate : 056 BPM Atrial Rate : 056 BPM P-R Int : 170 ms QRS Dur : 098 ms QT Int : 428 ms P-R-T Axes : 044 -45 040 degrees QTc Int : 413 ms Sinus bradycardia Left axis deviation Moderate voltage criteria for LVH, may be normal variant ( R in aVL , [place] product ) Abnormal ECG When compared to the previous EKG of No significant changes seen Referred By: Raymon Fregoso Electronically Signed By:Ruddy Larios
--- NOTE | 2021-07-28 11:52 | PC.NURSE ---
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
[2021-07-28 11:57] LABS: MANUAL DIFF FLAG NO
[2021-07-28 11:59] LABS: Basophils Percent Auto 0.2 % (0-2); Eosinophils Absolute Auto 0.1 X10*3/uL (0.0-0.4); Eosinophils Percent Auto 1.1 % (0-4); Hematocrit 36.9 % (37.0-47.0); Hemoglobin 11.9 g/dl (12.0-16.0); Imm Gran Abs Auto 0.01 X10*3/uL (0.00-0.03); Imm Gran Pct Auto 0.2 % (0.0-0.4); Lymphocytes Absolute Auto 2.6 X10*3/uL (1.2-4.9); Lymphocytes Percent Auto 48.3 % (20-40); Mean Corpuscular HGB Conc 32.2 g/dl (31.0-35.0); Mean Corpuscular Hemoglobin 31.2 pg (27.0-33.0); Mean Corpuscular Volume 96.6 fL (80.0-98.0); Mean Platelet Volume 10.1 fL (9.4-12.3); Monocytes Absolute Auto 0.4 X10*3/uL (0.1-1.2); Monocytes Percent Auto 7.3 % (2-11); Neutrophils Absolute Auto 2.3 x10*3/uL (2.0-8.3); Neutrophils Percent Auto 42.9 % (45-73); Platelet Count 219 X10*3/uL (160-400); Red Blood Count 3.82 X10*6/uL (4.20-5.50); Red Cell Distribution Width 15.3 % (11.0-16.0); White Blood Count 5.5 X10*3/uL (4.8-10.8)
[2021-07-28 12:00] VITALS: BP 125/71; RESP 18; O2SAT 100
[2021-07-28 12:21] LABS: Anion Gap 9 (12-20); Blood Urea Nitrogen 10 mg/dL (9-16); Calcium 9.6 mg/dL (8.4-10.2); Carbon Dioxide 28 mmol/L (22-29); Chloride 105 mmol/L (96-108); Creatinine Clr Calc Pharmacy 104.6; Estimated Glomerular Filt Rate > 60; Glucose Random 78 mg/dL (60-115); Potassium 4.2 mmol/L (3.3-5.1); Sodium 138 mmol/L (135-145)
[2021-07-28 12:22] LABS: Troponin-I High Sensitivity < 3.5 ng/L (<3.5-17.0)
--- NOTE | 2021-07-28 12:35 | ED.CHESTPAIN ---
HPI - Chest Pain General Chief Complaint: Chest Pain Stated Complaint: Chest Pain Diff Breathing Time Seen by Provider: 07/28/21 12:23 Source: patient Mode of arrival: ambulatory Limitations: no limitations History of Present Illness HPI narrative: This is 46 years old patient presented to the emergency room with a chief complaint of left-sided chest pain x3 days, denies any shortness of breath denies any radiation of the pain MD complaint: chest pain Onset (ago): day(s) (3) Timing of current episode: constant Onset: during rest Pain location: substernal Pain radiation: none Severity: moderate Quality: aching Relieving factors: nothing Risk Factors Coronary artery disease risk factors: none Thoracic aortic dissection risk factors: none Related Data Home Medications Medication Instructions Recorded Confirmed apixaban 5 mg tablet (Eliquis) 5 mg PO BID 05/01/20 02/11/21 benztropine 0.5 mg tablet 0.5 mg PO DAILY 05/01/20 02/11/21 gabapentin 400 mg tablet 400 mg PO TID 05/01/20 02/11/21 risperidone 1 mg tablet 1 mg PO DAILY 05/01/20 02/11/21 sertraline 100 mg tablet 100 mg PO DAILY 05/01/20 02/11/21 Previous Rx's Medication Instructions Recorded adhesive bandage 1 #20 ea 05/21/20 alcohol swabs (Alcohol Prep Pads) 2 pad TOPICAL .COMPLEX #100 ea 05/21/20 naloxone 4 mg/actuation nasal 4 mg INTRANASAL Q2M PRN #2 ea 06/24/20 spray (Narcan) cyclobenzaprine 5 mg tablet 5 mg PO TID PRN #14 tab 08/12/20 prednisone 5 mg tablet 15 mg PO DAILY #90 tab 09/30/20 nystatin 100,000 unit/gram topical 1 appl TOPICAL TID #30 g 10/29/20 ointment acetaminophen 325 mg capsule 325 mg PO QID PRN #20 cap 11/29/20 (Tylenol) folic acid 1 mg tablet 1 mg PO QAM #90 tab 02/11/21 syringe with needle, safety 1 mL #50 ea 02/11/21 28 gauge x 1/2 (Monoject TB Safety Syringe) abatacept 125 mg/mL subcutaneous 125 mg SUBCUT QWEEK #4 ml 04/29/21 auto-injector (Orencia ClickJect) oxycodone-acetaminophen 5 mg-325 1 tab PO Q6H PRN #7 tab 05/26/21 mg tablet (Percocet) penicillin V potassium 500 mg 500 mg PO TID 7 Days #21 tab 05/26/21 tablet oxycodone-acetaminophen 5 mg-325 1 tab PO Q6H PRN #7 tab 06/08/21 mg tablet (Percocet) pantoprazole 40 mg tablet,delayed 40 mg PO DAILY #90 tab 06/08/21 release prednisone 10 mg tablet 10 mg PO DAILY #7 tab 06/08/21 oxycodone 5 mg capsule 5 mg PO Q8H PRN #10 cap 07/28/21 oxycodone 5 mg capsule 5 mg PO Q8H PRN #12 cap 07/28/21 Allergies Allergy/AdvReac Type Severity Reaction Status Date / Time almond [ALMONDS] Allergy Severe ANAPHYLAXIS Verified 06/08/21 11:29 adhesive tape [ADHESIVE TAPE] Allergy Intermediate RASH Verified 06/08/21 11:29 morphine [MORPHINE] Allergy Intermediate GI UPSET, Verified 06/08/21 11:29 difficulty breathing tramadol [TRAMADOL] AdvReac Unknown NAUSEA & Verified 06/08/21 11:29 VOMITING Review of Systems Review of Systems: Yes all other systems are reviewed and are negative Constitutional: Constitutional: Reports body ache(s) ENT: Reports system reviewed and no additional complaints, except as documented Cardiovascular: Cardiovascular: Reports no additional cardiovascular complaints Respiratory: Respiratory: Denies cough, Denies hemoptysis, Denies excessive phlegm production and Denies pain on inspiration Gastrointestinal: Gastrointestinal: Reports no additional gastrointestinal complaints Musculoskeletal: Musculoskeletal: Reports no additional musculoskeletal complaints Neurologic: Reports system reviewed and no additional complaints, except as documented Endocrine: Endocrine: Reports no additional endocrine complaints [facility] Past Medical History Medical History Acute arthritis Bleeding hemorrhoid Chronic GERD De Quervain's disease (tenosynovitis) Degeneration of intervertebral disc at C4-C5 level Degeneration, intervertebral disc, lumbar Depressive disorder Esophageal dysphagia Fibromyalgia Frequency-urgency syndrome Gallstones Hodgkin disease Nocturia Osteoarthritis of spine with radiculopathy, lumbar region Rheumatoid arthritis involving multiple sites Seropositive rheumatoid arthritis Stress incontinence in female Systemic lupus erythematosus Urgency-frequency syndrome Vitamin D deficiency Surgical History History of esophagogastroduodenoscopy (EGD) History of lymph node dissection of left axilla History of repair of inguinal hernia Social History Social History Alcohol intake: current Alcohol intake frequency: does not drink Patient Tobacco Use Status: Current everyday Tobacco user Substance Use Type: Marijuana Advance Directives: Yes Advance Directives on File: Yes Advance Directives Date on File: 09/23/20 Patient : No Current occupational status: disabled 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 Physical Exam Vital Signs: Vital Signs: Last Vital Signs Temp 98.3 F 07/28/21 13:02 Pulse 54 07/28/21 13:02 Resp 18 07/28/21 13:02 BP 111/62 07/28/21 13:02 Pulse Ox 100 07/28/21 13:02 BMI result Body Mass Index 31.4 Const: General: cooperative and healthy appearing Nutritional Appearance: well nourished Orientation/consciousness: oriented to place, oriented to time and patient oriented x3 Limitations: no limitations HENMT: Head: Yes normal to inspection Ears: hearing grossly normal bilaterally Face and sinus: Yes normal facial exam Mouth: Normal oral and palatal mucosa present Throat: Yes posterior oropharynx normal Neck: Neck: Yes normal visual inspection and Yes full ROM Chest: Chest palpation & inspection: normal inspection of the chest Resp: Effort & Inspection: normal respiratory effort Auscultation: clear to auscultation bilaterally Cardio: Jugular venous distension: no JVD Palpation: normal PMI Rate: regular rate Rhythm: regular rhythm GI: Inspection: Yes normal to inspection Percussion: Yes normal to percussion Neuro: General: oriented to place, oriented to time and patient oriented x3 Course Reevaluation(s) Reevaluation #1: She is feeling much better at this time , chest pain is gone, delta troponin is negative, a bedside ultrasound was done normal wall motion no pericardial effusion I think is okay to discharge home with follow-up with PCP MDM - Chest Pain MDM Narrative Medical decision making narrative: Patient has a normal EKG, negative troponin after 3 days of chest pain, I perform a bedside echo she has no pericardial effusion and no wall motion abnormality. This is unlikely PE she is already anticoagulated with apixaban plan is to get a repeat troponin if he is negative discharge Lab Data Result diagrams: 12/28/21 11:49 07/28/21 11:49 Labs: Lab Results 07/28/21 07/28/21 07/28/21 Range/Units 11:49 11:49 11:49 WBC 5.5 (4.8-10.8) X10*3/uL RBC 3.82 L (4.20-5.50) X10*6/uL Hgb 11.9 L (12.0-16.0) g/dl Hct 36.9 L (37.0-47.0) % MCV 96.6 (80.0-98.0) fL MCH 31.2 (27.0-33.0) pg MCHC 32.2 (31.0-35.0) g/dl RDW 15.3 (11.0-16.0) % Plt Count 219 (160-400) X10*3/uL MPV 10.1 (9.4-12.3) fL Immature Gran % (Auto) 0.2 (0.0-0.4) % Neut % (Auto) 42.9 L (45-73) % Lymph % (Auto) 48.3 H (20-40) % [place] % (Auto) 7.3 (2-11) % Eos % (Auto) 1.1 (0-4) % Baso % (Auto) 0.2 (0-2) % Lymph # (Auto) 2.6 (1.2-4.9) X10*3/uL [place] # (Auto) 0.4 (0.1-1.2) X10*3/uL Eos # (Auto) 0.1 (0.0-0.4) X10*3/uL Baso # (Auto) 0.0 (0.0-0.2) X10*3/uL Abs Immat Gran (auto) 0.01 (0.00-0.03) X10*3/uL Absolute Neuts (auto) 2.3 (2.0-8.3) x10*3/uL Absolute Nucleated RBC 0.000 (0.0-0.012) X10*3/uL Nucleated RBC % (auto) 0.0 (0.0-0.2) /100WBC Sodium 138 (135-145) mmol/L Potassium 4.2 (3.3-5.1) mmol/L Chloride 105 (96-108) mmol/L Carbon Dioxide 28 (22-29) mmol/L Anion Gap 9 L (12-20) BUN 10 (9-16) mg/dL Creatinine 0.76 (0.5-1.4) mg/dL Estim Creat Clear Calc 104.6 Estimated GFR > 60 Random Glucose 78 (60-115) mg/dL Calcium 9.6 D (8.4-10.2) mg/dL Troponin I High Sens < 3.5 (<3.5-17.0) ng/L 07/28/21 Range/Units 14:15 WBC (4.8-10.8) X10*3/uL RBC (4.20-5.50) X10*6/uL Hgb (12.0-16.0) g/dl Hct (37.0-47.0) % MCV (80.0-98.0) fL MCH (27.0-33.0) pg MCHC (31.0-35.0) g/dl RDW (11.0-16.0) % Plt Count (160-400) X10*3/uL MPV (9.4-12.3) fL Immature Gran % (Auto) (0.0-0.4) % Neut % (Auto) (45-73) % Lymph % (Auto) (20-40) % [place] % (Auto) (2-11) % Eos % (Auto) (0-4) % Baso % (Auto) (0-2) % Lymph # (Auto) (1.2-4.9) X10*3/uL [place] # (Auto) (0.1-1.2) X10*3/uL Eos # (Auto) (0.0-0.4) X10*3/uL Baso # (Auto) (0.0-0.2) X10*3/uL Abs Immat Gran (auto) (0.00-0.03) X10*3/uL Absolute Neuts (auto) (2.0-8.3) x10*3/uL Absolute Nucleated RBC (0.0-0.012) X10*3/uL Nucleated RBC % (auto) (0.0-0.2) /100WBC Sodium (135-145) mmol/L Potassium (3.3-5.1) mmol/L Chloride (96-108) mmol/L Carbon Dioxide (22-29) mmol/L Anion Gap (12-20) BUN (9-16) mg/dL Creatinine (0.5-1.4) mg/dL Estim Creat Clear Calc Estimated GFR Random Glucose (60-115) mg/dL Calcium (8.4-10.2) mg/dL Troponin I High Sens < 3.5 (<3.5-17.0) ng/L Imaging Data Chest x-ray: Radiologist's impression: EXAMINATION: XR CHEST CLINICAL INFORMATION: Chest pain COMPARISON: August 12, 2020 TECHNIQUE: AP portable view of the chest was obtained. FINDINGS: No significant abnormality is noted involving the heart, lungs, mediastinum, bony thorax or soft tissues. Right axillary clips present. XR/XR chest 1V IMPRESSION: No acute disease ? ECG Data ECG #1: ECG interpretation date: 07/28/21 ECG interpretation time: 12:38 Prior ECG tracings: available for review Pacemaker model: Normal sinus rhythm rate of 56 no ischemic chest Discharge Plan Discharge Clinical Impression: Chest pain Patient Disposition: Home, Self-Care Instructions: Chest Pain (ED) Prescriptions: New oxycodone 5 mg capsule 5 mg PO Q8H PRN (Reason: pain) Qty: 12 RF: 0 oxycodone 5 mg capsule 5 mg PO Q8H PRN (Reason: pain) Qty: 10 RF: 0 No Action alcohol swabs [Alcohol Prep Pads] Pads, Medicated 2 pad topical .COMPLEX Qty: 100 RF: 3 (DME) adhesive bandage 1 bandage See Rx Instructions .ROUTE .MEDSUPPLY Qty: 20 RF: 5 Narcan 4 mg/actuation spray,non-aerosol 4 mg intranasal Q2M PRN (Reason: opioid overdose) Qty: 2 RF: 0 Orencia ClickJect 125 mg/mL auto-injector 125 mg subcut QWEEK Qty: 4 RF: 2 cyclobenzaprine 5 mg tablet 5 mg PO TID PRN (Reason: muscle spasm) Qty: 14 RF: 0 nystatin 100,000 unit/gram ointment 1 appl topical TID Qty: 30 RF: 0 acetaminophen [Tylenol] 325 mg capsule 325 mg PO QID PRN (Reason: fever or pain) Qty: 20 RF: 0 benztropine 0.5 mg Tablet 0.5 mg PO DAILY RF: 0 sertraline 100 mg Tablet 100 mg PO DAILY RF: 0 risperidone 1 mg Tablet 1 mg PO DAILY RF: 0 gabapentin 400 mg Tablet 400 mg PO TID RF: 0 Eliquis 5 mg Tablet 5 mg PO BID RF: 0 oxycodone-acetaminophen [Percocet] 5-325 mg tablet 1 tab PO Q6H PRN (Reason: pain) Qty: 7 RF: 0 penicillin V potassium 500 mg tablet 500 mg PO TID 7 Days Qty: 21 RF: 0 prednisone 10 mg tablet 10 mg PO DAILY Qty: 7 RF: 0 oxycodone-acetaminophen [Percocet] 5-325 mg tablet 1 tab PO Q6H PRN (Reason: pain) Qty: 7 RF: 0 (DME) Monoject TB Safety Syringe 1 mL 28 gauge x 1/2 syringe See Rx Instructions .ROUTE .MEDSUPPLY Qty: 50 RF: 1 folic acid 1 mg tablet 1 mg PO QAM Qty: 90 RF: 3 prednisone 5 mg tablet 15 mg PO DAILY Qty: 90 RF: 2 pantoprazole 40 mg tablet,delayed release (DR/EC) 40 mg PO DAILY Qty: 90 RF: 1 Referrals: Mackenzie Estrada MD [Primary Care Provider] - 2 days
[2021-07-28] MEDS: oxyCODONE HCl Immed Release 5 MG TABLET 10 MG PO (13:00)
[2021-07-28 13:02] VITALS: BP 111/62; PULSE 54; RESP 18; TEMP 36.8; O2SAT 100
--- NOTE | 2021-07-28 13:03 | PC.NURSE ---
crystal a&ox3, vss, firer portable boiler sinus dick, pt medicated for pain, will continue to monitor.
[2021-07-28] MEDS: Magnesium Hydrox/Alum Hydrox 30 ML ORAL.SUSP PO (14:31)
[2021-07-28] MEDS: Lidocaine HCl Viscous 2 % 15 ML SOLUTION MUCOUS MEM (14:31)
[2021-07-28 14:50] LABS: Troponin-I High Sensitivity < 3.5 ng/L (<3.5-17.0)
== END 2021-07-28 15:53 | disposition home or self-care (01) ==
PROVIDERS: Emergency Provider Emergency Medicine; PCP General Practice
DX: R07.9 Chest pain, unspecified (principal)
CPT/HCPCS: 36415; 71045; 80048; 84484; 85025; 93005; 99284

== ENCOUNTER 2021-08-25 13:57 | Emergency (ER) | payer MEDICAID, SELFPAY ==
--- NOTE | 2021-08-25 | ECG_ITS ---
Test Reason : chest pain Blood Pressure : / mmHG Vent. Rate : 049 BPM Atrial Rate : 049 BPM P-R Int : 172 ms QRS Dur : 114 ms QT Int : 438 ms P-R-T Axes : 048 -41 021 degrees QTc Int : 395 ms Sinus bradycardia Left axis deviation Incomplete right bundle branch block Moderate voltage criteria for LVH, may be normal variant ( R in aVL , Remy product ) Cannot rule out Anteroseptal infarct (cited on or before 25-AUG-2021) Abnormal ECG When compared with ECG of 28-JUL-2021 11:37, No significant change was found Referred By: Kirk Noguera Electronically Signed By:OLGA KINGSTON MD
--- NOTE | ~2021-08-25 | XR_ITS ---
EXAMINATION: XR CHEST CLINICAL INFORMATION: Chest pain. COMPARISON: Chest radiograph dated from 07/28/2021. TECHNIQUE: AP view of the chest was obtained. FINDINGS: Normal appearance of the cardiomediastinal silhouette. Clear lungs. No pleural effusions or pneumothorax. Right axillary surgical clips. No acute osseous findings. XR/XR chest 1V IMPRESSION: No acute cardiopulmonary findings.
[2021-08-25 14:14] VITALS: BP 153/92; PULSE 66; RESP 16; TEMP 36.6; O2SAT 100; BMI 28.7
--- NOTE | 2021-08-25 14:47 | ED.CHESTPAIN ---
HPI - Chest Pain General Chief Complaint: Chest Pain Stated Complaint: CP Time Seen by Provider: 08/25/21 14:37 Source: patient Limitations: no limitations and language barrier (Hospital supervisor insulation used) History of Present Illness HPI narrative: This is a 46-year-old female with a history of Hodgkin's lymphoma, in remission for a year, complains of chest pain for the last 3 days. She notes that it is in the left center of her chest. She feels a little short of breath. She has had a little nausea but no vomiting. She has had sweats at night. She notes pain in her right leg and states that she has had this previously evaluated and they never can find anything wrong. The patient also complains of diarrhea for a week. Patient is on Eliquis, has history of DVT in her right upper extremity. She has chronic pain syndrome, rheumatoid arthritis, fibromyalgia. She was seen for chest pain on July 282020 Related Data Home Medications Medication Instructions Recorded Confirmed apixaban 5 mg tablet (Eliquis) 5 mg PO BID 05/01/20 02/11/21 benztropine 0.5 mg tablet 0.5 mg PO DAILY 05/01/20 02/11/21 gabapentin 400 mg tablet 400 mg PO TID 05/01/20 02/11/21 risperidone 1 mg tablet 1 mg PO DAILY 05/01/20 02/11/21 sertraline 100 mg tablet 100 mg PO DAILY 05/01/20 02/11/21 Previous Rx's Medication Instructions Recorded adhesive bandage 1 #20 ea 05/21/20 alcohol swabs (Alcohol Prep Pads) 2 pad TOPICAL .COMPLEX #100 ea 05/21/20 naloxone 4 mg/actuation nasal 4 mg INTRANASAL Q2M PRN #2 ea 06/24/20 spray (Narcan) cyclobenzaprine 5 mg tablet 5 mg PO TID PRN #14 tab 08/12/20 prednisone 5 mg tablet 15 mg PO DAILY #90 tab 09/30/20 nystatin 100,000 unit/gram topical 1 appl TOPICAL TID #30 g 10/29/20 ointment acetaminophen 325 mg capsule 325 mg PO QID PRN #20 cap 11/29/20 (Tylenol) folic acid 1 mg tablet 1 mg PO QAM #90 tab 02/11/21 syringe with needle, safety 1 mL #50 ea 02/11/21 28 gauge x 1/2 (Monoject TB Safety Syringe) abatacept 125 mg/mL subcutaneous 125 mg SUBCUT QWEEK #4 ml 04/29/21 auto-injector (Orencia ClickJect) oxycodone-acetaminophen 5 mg-325 1 tab PO Q6H PRN #7 tab 05/26/21 mg tablet (Percocet) penicillin V potassium 500 mg 500 mg PO TID 7 Days #21 tab 05/26/21 tablet oxycodone-acetaminophen 5 mg-325 1 tab PO Q6H PRN #7 tab 06/08/21 mg tablet (Percocet) pantoprazole 40 mg tablet,delayed 40 mg PO DAILY #90 tab 06/08/21 release prednisone 10 mg tablet 10 mg PO DAILY #7 tab 06/08/21 oxycodone 5 mg capsule 5 mg PO Q8H PRN #10 cap 07/28/21 oxycodone 5 mg capsule 5 mg PO Q8H PRN #12 cap 07/28/21 Allergies Allergy/AdvReac Type Severity Reaction Status Date / Time almond [ALMONDS] Allergy Severe ANAPHYLAXIS Verified 06/08/21 11:29 adhesive tape [ADHESIVE TAPE] Allergy Intermediate RASH Verified 06/08/21 11:29 morphine [MORPHINE] Allergy Intermediate GI UPSET, Verified 06/08/21 11:29 difficulty breathing tramadol [TRAMADOL] AdvReac Unknown NAUSEA & Verified 06/08/21 11:29 VOMITING Review of Systems Constitutional: Constitutional: Denies fever(s) and Reports night sweats Eyes: Eyes: Reports no additional eye complaints ENT: Reports system reviewed and no additional complaints, except as documented Cardiovascular: Cardiovascular: Reports as per HPI Respiratory: Respiratory: Reports as per HPI and Denies cough Gastrointestinal: Gastrointestinal: Reports diarrhea, Reports nausea and Denies vomiting Musculoskeletal: Musculoskeletal: Reports as per HPI Integumentary/Breasts: Skin/Breast: Reports system reviewed and no additional complaints, except as docu Neurologic: Denies Sensory deficit (Neuro) [facility] Past Medical History Medical History Acute arthritis Bleeding hemorrhoid Chronic GERD De Quervain's disease (tenosynovitis) Degeneration of intervertebral disc at C4-C5 level Degeneration, intervertebral disc, lumbar Depressive disorder Esophageal dysphagia Fibromyalgia Frequency-urgency syndrome Gallstones Hodgkin disease Nocturia Osteoarthritis of spine with radiculopathy, lumbar region Rheumatoid arthritis involving multiple sites Seropositive rheumatoid arthritis Stress incontinence in female Systemic lupus erythematosus Urgency-frequency syndrome Vitamin D deficiency Surgical History History of esophagogastroduodenoscopy (EGD) History of lymph node dissection of left axilla History of repair of inguinal hernia Social History Social History Alcohol intake: current Alcohol intake frequency: does not drink Patient Tobacco Use Status: Current everyday Tobacco user Use of substances other than those prescribed or required for medical reasons: Yes Substance Use Type: Marijuana Advance Directives: Yes Advance Directives on File: Yes Advance Directives Date on File: 09/23/20 Current occupational status: disabled 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 Patient has a reaction of feeling exquisite pain to even light palpation of her right foot and ankle, though objectively I do not see any acute pathology there. She also has exquisite tenderness to her epigastric area and chest. Pain/tenderness out of proportion to physiology General: cooperative, no acute distress and alert Orientation/consciousness: patient oriented x3 HENMT: Head: Yes normal to inspection Eyes: General: appearance normal, both eyes and all related structures Eyelids: Yes eyelids normal Conjunctivae: conjunctivae normal Pupils: Equal, round and reactive pupils present Neck: Neck: Yes normal visual inspection and Yes supple Chest: Chest palpation & inspection: normal inspection of the chest Resp: Effort & Inspection: normal respiratory effort Auscultation: clear to auscultation bilaterally Cardio: Rate: regular rate Rhythm: regular rhythm Heart sounds: S1 normal heart sound present, S2 normal heart sound present, no gallops, no murmurs and no rubs GI: Palpation (GI): Soft to palpation, nontender and Other GI palpation findings present (Non-distended) Auscultation: normal bowel sounds Skin: General skin exam: no rashes or lesions noted Neuro: General: patient oriented x3, no focal motor deficits and CN's II-XI intact bilaterally Cranial nerves: Yes Equal, round and reactive pupils present Cognition (Neuro): normal cognition Motor exam (neuro): 5/5 motor strength present throughout Sensory Exam: No Sensory deficit (Neuro) Extrem: General: Yes normal to inspection and Yes no pedal edema Psych: Appearance: grossly normal Affect: normal affect MDM - Chest Pain MDM Narrative Medical decision making narrative: Patient with multiple complaints, tenderness out of proportion to physiology, known chronic pain and prior drug-seeking behavior, states her primary care physician had previously prescribed her Percocet, has a complaint of chest pain. EKG without changes. Troponin normal. Chest x-ray unremarkable. Patient needs to follow-up the primary care physician regarding pain management patient stated that she may be out of her medicine for inflammation. She has been on methotrexate in the past. Advised her to follow up with primary care physician or warning analyst regarding this Medical Records Data Attestation: I reviewed the patient's medical records. Lab Data Attestation: I reviewed the patient's lab results. Result diagrams: 08/25/21 15:48 08/25/21 15:48 Labs: Lab Results 08/25/21 08/25/21 08/25/21 Range/Units 15:48 15:48 15:48 WBC 4.9 (4.8-10.8) X10*3/uL RBC 3.64 L (4.20-5.50) X10*6/uL Hgb 11.3 L (12.0-16.0) g/dl Hct 34.7 L (37.0-47.0) % MCV 95.3 (80.0-98.0) fL MCH 31.0 (27.0-33.0) pg MCHC 32.6 (31.0-35.0) g/dl RDW 14.0 (11.0-16.0) % Plt Count 248 (160-400) X10*3/uL MPV 9.8 (9.4-12.3) fL Immature Gran % (Auto) 0.2 (0.0-0.4) % Neut % (Auto) 43.3 L (45-73) % Lymph % (Auto) 47.0 H (20-40) % [place] % (Auto) 7.9 (2-11) % Eos % (Auto) 1.2 (0-4) % Baso % (Auto) 0.4 (0-2) % Lymph # (Auto) 2.3 (1.2-4.9) X10*3/uL [place] # (Auto) 0.4 (0.1-1.2) X10*3/uL Eos # (Auto) 0.1 (0.0-0.4) X10*3/uL Baso # (Auto) 0.0 (0.0-0.2) X10*3/uL Abs Immat Gran (auto) 0.01 (0.00-0.03) X10*3/uL Absolute Neuts (auto) 2.1 (2.0-8.3) x10*3/uL Absolute Nucleated RBC 0.000 (0.0-0.012) X10*3/uL Nucleated RBC % (auto) 0.0 (0.0-0.2) /100WBC Sodium 138 (135-145) mmol/L Potassium 4.3 (3.3-5.1) mmol/L Chloride 109 H (96-108) mmol/L Carbon Dioxide 19 L (22-29) mmol/L Anion Gap 14 (12-20) BUN 9 (9-16) mg/dL Creatinine 0.77 (0.5-1.4) mg/dL Estim Creat Clear Calc 98.9 Estimated GFR > 60 Random Glucose 78 (60-115) mg/dL Calcium 9.5 (8.4-10.2) mg/dL Total Bilirubin 0.3 (0.0-1.0) mg/dL AST 23 (5-31) U/L ALT 15 (0-31) U/L Alkaline Phosphatase 58 D (39-117) U/L Troponin I High Sens < 3.5 (<3.5-17.0) ng/L Total Protein 8.6 H (6.5-8.0) g/dL Albumin 3.9 (3.5-5.0) g/dL Imaging Data Chest x-ray: My impression: No cardiomegaly, no acute pathology, normal lung aldrich ECG Data ECG #1: ECG interpretation date: 08/25/21 ECG interpretation time: 14:54 Interpretation: Sinus rhythm with a rate of 49. RSR pattern in lead V1 and V2 with Q-waves lead V2. Left axis deviation. No cassy ST elevation or depression. Moderate voltage criteria for LVH. EKG appears unchanged from 1 dated 07/28/2021 Discharge Plan Discharge Clinical Impression: Atypical chest pain, Chronic pain syndrome Patient Disposition: Home, Self-Care Instructions: Chronic Pain (ED), Noncardiac Chest Pain (ED) Additional Instructions: Follow-up with her primary care physician for management of your pain. Continue your current medications Prescriptions: No Action alcohol swabs [Alcohol Prep Pads] Pads, Medicated 2 pad topical .COMPLEX Qty: 100 RF: 3 (DME) adhesive bandage 1 bandage See Rx Instructions .ROUTE .MEDSUPPLY Qty: 20 RF: 5 Narcan 4 mg/actuation spray,non-aerosol 4 mg intranasal Q2M PRN (Reason: opioid overdose) Qty: 2 RF: 0 Orencia ClickJect 125 mg/mL auto-injector 125 mg subcut QWEEK Qty: 4 RF: 2 cyclobenzaprine 5 mg tablet 5 mg PO TID PRN (Reason: muscle spasm) Qty: 14 RF: 0 nystatin 100,000 unit/gram ointment 1 appl topical TID Qty: 30 RF: 0 acetaminophen [Tylenol] 325 mg capsule 325 mg PO QID PRN (Reason: fever or pain) Qty: 20 RF: 0 benztropine 0.5 mg Tablet 0.5 mg PO DAILY RF: 0 sertraline 100 mg Tablet 100 mg PO DAILY RF: 0 risperidone 1 mg Tablet 1 mg PO DAILY RF: 0 gabapentin 400 mg Tablet 400 mg PO TID RF: 0 Eliquis 5 mg Tablet 5 mg PO BID RF: 0 oxycodone-acetaminophen [Percocet] 5-325 mg tablet 1 tab PO Q6H PRN (Reason: pain) Qty: 7 RF: 0 penicillin V potassium 500 mg tablet 500 mg PO TID 7 Days Qty: 21 RF: 0 prednisone 10 mg tablet 10 mg PO DAILY Qty: 7 RF: 0 oxycodone-acetaminophen [Percocet] 5-325 mg tablet 1 tab PO Q6H PRN (Reason: pain) Qty: 7 RF: 0 oxycodone 5 mg capsule 5 mg PO Q8H PRN (Reason: pain) Qty: 12 RF: 0 oxycodone 5 mg capsule 5 mg PO Q8H PRN (Reason: pain) Qty: 10 RF: 0 (DME) Monoject TB Safety Syringe 1 mL 28 gauge x 1/2 syringe See Rx Instructions .ROUTE .MEDSUPPLY Qty: 50 RF: 1 folic acid 1 mg tablet 1 mg PO QAM Qty: 90 RF: 3 prednisone 5 mg tablet 15 mg PO DAILY Qty: 90 RF: 2 pantoprazole 40 mg tablet,delayed release (DR/EC) 40 mg PO DAILY Qty: 90 RF: 1
[2021-08-25] MEDS: LORazepam 2 MG/ML VIAL 1 MG IVPUSH (15:10)
[2021-08-25 15:35] VITALS: BP 123/78; PULSE 56; RESP 20; TEMP 36.4; O2SAT 100
[2021-08-25 15:53] LABS: MANUAL DIFF FLAG NO
[2021-08-25 15:55] LABS: Basophils Percent Auto 0.4 % (0-2); Eosinophils Absolute Auto 0.1 X10*3/uL (0.0-0.4); Eosinophils Percent Auto 1.2 % (0-4); Hematocrit 34.7 % (37.0-47.0); Hemoglobin 11.3 g/dl (12.0-16.0); Imm Gran Abs Auto 0.01 X10*3/uL (0.00-0.03); Imm Gran Pct Auto 0.2 % (0.0-0.4); Lymphocytes Absolute Auto 2.3 X10*3/uL (1.2-4.9); Mean Corpuscular HGB Conc 32.6 g/dl (31.0-35.0); Mean Corpuscular Volume 95.3 fL (80.0-98.0); Mean Platelet Volume 9.8 fL (9.4-12.3); Monocytes Absolute Auto 0.4 X10*3/uL (0.1-1.2); Monocytes Percent Auto 7.9 % (2-11); Neutrophils Absolute Auto 2.1 x10*3/uL (2.0-8.3); Neutrophils Percent Auto 43.3 % (45-73); Platelet Count 248 X10*3/uL (160-400); Red Blood Count 3.64 X10*6/uL (4.20-5.50); White Blood Count 4.9 X10*3/uL (4.8-10.8)
[2021-08-25 16:15] LABS: Troponin-I High Sensitivity < 3.5 ng/L (<3.5-17.0)
[2021-08-25 16:22] LABS: Alanine Aminotransferase 15 U/L (0-31); Albumin Level 3.9 g/dL (3.5-5.0); Alkaline Phosphatase 58 U/L (39-117); Anion Gap 14 (12-20); Aspartate Amino Transferase 23 U/L (5-31); Bilirubin Total 0.3 mg/dL (0.0-1.0); Blood Urea Nitrogen 9 mg/dL (9-16); Calcium 9.5 mg/dL (8.4-10.2); Carbon Dioxide 19 mmol/L (22-29); Chloride 109 mmol/L (96-108); Creatinine Clr Calc Pharmacy 98.9; Estimated Glomerular Filt Rate > 60; Glucose Random 78 mg/dL (60-115); Potassium 4.3 mmol/L (3.3-5.1); Sodium 138 mmol/L (135-145); Total Protein 8.6 g/dL (6.5-8.0)
== END 2021-08-25 17:00 | disposition home or self-care (01) ==
PROVIDERS: Emergency Provider Emergency Medicine
DX: R07.89 Other chest pain (principal); G89.29 Other chronic pain; F17.200 Nicotine dependence, unspecified, uncomplicated; F12.90 Cannabis use, unspecified, uncomplicated; Z71.6 Tobacco abuse counseling; Z79.899 Other long term (current) drug therapy
CPT/HCPCS: 36415; 71045; 80053; 84484; 85025; 93005; 96374; 99284; J2060

== ENCOUNTER 2021-09-08 11:16 | Emergency (ER) | payer MEDICAID, SELFPAY ==
--- NOTE | 2021-09-08 | ECG_ITS ---
Test Reason : CHEST PAIN Blood Pressure : / mmHG Vent. Rate : 069 BPM Atrial Rate : 069 BPM P-R Int : 166 ms QRS Dur : 100 ms QT Int : 394 ms P-R-T Axes : 058 -36 047 degrees QTc Int : 422 ms Normal sinus rhythm Left axis deviation Moderate voltage criteria for LVH, may be normal variant ( R in aVL , [place] product ) Septal infarct (cited on or before 25-AUG-2021) Abnormal ECG When compared with ECG of 25-AUG-2021 14:31, No significant change was found Referred By: Generic ED Physician Electronically Signed By:Ruddy Larios
--- NOTE | ~2021-09-08 | XR_ITS ---
EXAMINATION: XR CHEST CLINICAL INFORMATION: Chest pain COMPARISON: Previous chest x-ray most recent August 2021 TECHNIQUE: Frontal view of the chest was obtained. FINDINGS: The cardiac and mediastinal contours are stable. The lungs are clear. There is no pleural effusion or pneumothorax. There are surgical clips in the right axilla. There is mild curvature of the thoracic spine. XR/XR chest 1V IMPRESSION: No evidence for acute disease in the chest.
[2021-09-08 11:18] VITALS: BP 138/79; PULSE 82; RESP 16; TEMP 36.3; O2SAT 98; BMI 26.8
--- NOTE | 2021-09-08 12:11 | ED_ITS ---
HPI - General Adult General Chief complaint: General Medical Stated complaint: Body aches/Abd pain Time Seen by Provider: 09/08/21 11:51 Source: patient Mode of arrival: ambulatory Limitations: no limitations History of Present Illness HPI narrative: Patient comes emergency room com patient was seen here or on August 25 of chest pain. Patient states that she call her PCP today, and then she was instructed to return to the emergency room. Patient was seen here on August 25, diagnosed with atypical chest pain. Patient states she has an appointment with Cardiology tomorrow. Patient also reports having diarrhea for 3 days. Related Data Home Medications Medication Instructions Recorded Confirmed apixaban 5 mg tablet (Eliquis) 5 mg PO BID 05/01/20 02/11/21 benztropine 0.5 mg tablet 0.5 mg PO DAILY 05/01/20 02/11/21 gabapentin 400 mg tablet 400 mg PO TID 05/01/20 02/11/21 risperidone 1 mg tablet 1 mg PO DAILY 05/01/20 02/11/21 sertraline 100 mg tablet 100 mg PO DAILY 05/01/20 02/11/21 Previous Rx's Medication Instructions Recorded adhesive bandage 1 #20 ea 05/21/20 alcohol swabs (Alcohol Prep Pads) 2 pad TOPICAL .COMPLEX #100 ea 05/21/20 naloxone 4 mg/actuation nasal 4 mg INTRANASAL Q2M PRN #2 ea 06/24/20 spray (Narcan) cyclobenzaprine 5 mg tablet 5 mg PO TID PRN #14 tab 08/12/20 prednisone 5 mg tablet 15 mg PO DAILY #90 tab 09/30/20 nystatin 100,000 unit/gram topical 1 appl TOPICAL TID #30 g 10/29/20 ointment acetaminophen 325 mg capsule 325 mg PO QID PRN #20 cap 11/29/20 (Tylenol) folic acid 1 mg tablet 1 mg PO QAM #90 tab 02/11/21 syringe with needle, safety 1 mL #50 ea 02/11/21 28 gauge x 1/2 (Monoject TB Safety Syringe) abatacept 125 mg/mL subcutaneous 125 mg SUBCUT QWEEK #4 ml 04/29/21 auto-injector (Orencia ClickJect) oxycodone-acetaminophen 5 mg-325 1 tab PO Q6H PRN #7 tab 05/26/21 mg tablet (Percocet) penicillin V potassium 500 mg 500 mg PO TID 7 Days #21 tab 05/26/21 tablet oxycodone-acetaminophen 5 mg-325 1 tab PO Q6H PRN #7 tab 06/08/21 mg tablet (Percocet) pantoprazole 40 mg tablet,delayed 40 mg PO DAILY #90 tab 06/08/21 release prednisone 10 mg tablet 10 mg PO DAILY #7 tab 06/08/21 oxycodone 5 mg capsule 5 mg PO Q8H PRN #10 cap 07/28/21 oxycodone 5 mg capsule 5 mg PO Q8H PRN #12 cap 07/28/21 baclofen 5 mg tablet 5 mg PO TID PRN #10 tab 09/08/21 Allergies Allergy/AdvReac Type Severity Reaction Status Date / Time almond [ALMONDS] Allergy Severe ANAPHYLAXIS Verified 06/08/21 11:29 adhesive tape [ADHESIVE TAPE] Allergy Intermediate RASH Verified 06/08/21 11:29 morphine [MORPHINE] Allergy Intermediate GI UPSET, Verified 06/08/21 11:29 difficulty breathing tramadol [TRAMADOL] AdvReac Unknown NAUSEA & Verified 06/08/21 11:29 VOMITING Review of Systems Review of Systems: Constitutional : No Weight loss, No Fever, No Chills, No Night Sweats, No Fatigue, No Malaise ENT/Mouth : No Hearing loss, No Ear Pain, No Nasal Congestion, No Sinus Pain, No Hoarseness, No sore throat, No Rhinorrhea, No Swallowing Difficulty Eyes: No Eye Pain, No Swelling, No Redness, No Foreign Body, No Discharge, No Vision Changes Cardiovascular : Complaining of left-sided chest pain for 7 hours, No SOB, No Dyspnea on Exertion, No Orthopnea, No Edema, No Palpitations Respiratory : No Cough, No Sputum, No Wheezing, No Smoke Exposure, No Dyspnea Gastrointestinal : No Nausea, No Vomiting, No Diarrhea, No Constipation, No abdominal Pain, No Hematochezia, No Melena Genitourinary : no irregular bleeding, No Dysuria, No Urinary Frequency, No Hematuria, No Urinary Incontinence, No Urgency, No Flank Pain, No Urinary Flow Changes, No Hesitancy Musculoskeletal : complaining of diffuse chronic pain in arms, upper back Skin : No Skin Lesions, No rash Neuro : No Weakness, No Numbness, No Paresthesias, No Loss of Consciousness, No Dizziness, No Headache Psych : No Anxiety/Panic, No Depression, No SI/HI/AH/VH, No Social Issues, Heme/Lymph: No Bruising, No Bleeding,No Lymphadenopathy Endocrine : No Polyuria, No Polydipsia, No Temperature Intolerance [facility] Past Medical History Medical History Acute arthritis Bleeding hemorrhoid Chronic GERD De Quervain's disease (tenosynovitis) Degeneration of intervertebral disc at C4-C5 level Degeneration, intervertebral disc, lumbar Depressive disorder Esophageal dysphagia Fibromyalgia Frequency-urgency syndrome Gallstones Hodgkin disease Nocturia Osteoarthritis of spine with radiculopathy, lumbar region Rheumatoid arthritis involving multiple sites Seropositive rheumatoid arthritis Stress incontinence in female Systemic lupus erythematosus Urgency-frequency syndrome Vitamin D deficiency Surgical History History of esophagogastroduodenoscopy (EGD) History of lymph node dissection of left axilla History of repair of inguinal hernia Social History Social History Alcohol intake: current Alcohol intake frequency: does not drink Patient Tobacco Use Status: Current everyday Tobacco user Substance Use Type: Marijuana Advance Directives: Yes Advance Directives on File: Yes Advance Directives Date on File: 09/23/20 Current occupational status: disabled 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 Oriented X3. No acute distress. Patient seems very anxious Eyes: Pupils equal, round and reactive to light. ENT: Pharynx normal. Pain to palpation on the lateral aspect of the neck on the left side Neck: Normal inspection. Neck supple. No lymph nodes noted. No crepitus CVS: Normal heart rate and rhythm. Pulses normal. Normal S1 and S2, patient has reproducible chest pain to palpation over left side of the Respiratory: No respiratory distress. Breath sounds normal. No Wheezing. No rales Abdomen: Soft and nontender. No rigidity. No distention. Skin: Skin warm and dry. Normal skin color. Normal skin turgor. Extremities: No lower extremity edema. No Lacerations. No Rash Neuro: Oriented X 3. No motor deficit. No sensory deficit. Moving all extermities. No slurred speech. Course Course Course Narrative: I discussed the labs and physical exam of the patient, patient likely having musculoskeletal pain. Patient has an appointment with Cardiology pending for tomorrow. Discussed with the patient that she may benefit from a stress test. Patient was given 1 dose of p.o. tramadol. At this time, patient states she has no chest pain, only left-sided neck pain Medical Decision Making Lab Data Result diagrams: 09/08/21 12:40 09/08/21 12:40 Labs: Lab Results 09/08/21 09/08/21 09/08/21 Range/Units 12:40 12:40 12:40 WBC 6.2 (4.8-10.8) X10*3/uL RBC 3.95 L (4.20-5.50) X10*6/uL Hgb 12.2 (12.0-16.0) g/dl Hct 37.7 (37.0-47.0) % MCV 95.4 (80.0-98.0) fL MCH 30.9 (27.0-33.0) pg MCHC 32.4 (31.0-35.0) g/dl RDW 14.2 (11.0-16.0) % Plt Count 249 (160-400) X10*3/uL MPV 9.9 (9.4-12.3) fL Immature Gran % (Auto) 0.3 (0.0-0.4) % Neut % (Auto) 55.7 (45-73) % Lymph % (Auto) 34.1 (20-40) % [place] % (Auto) 8.4 (2-11) % Eos % (Auto) 1.3 (0-4) % Baso % (Auto) 0.2 (0-2) % Lymph # (Auto) 2.1 (1.2-4.9) X10*3/uL [place] # (Auto) 0.5 (0.1-1.2) X10*3/uL Eos # (Auto) 0.1 (0.0-0.4) X10*3/uL Baso # (Auto) 0.0 (0.0-0.2) X10*3/uL Abs Immat Gran (auto) 0.02 (0.00-0.03) X10*3/uL Absolute Neuts (auto) 3.5 (2.0-8.3) x10*3/uL Absolute Nucleated RBC 0.000 (0.0-0.012) X10*3/uL Nucleated RBC % (auto) 0.0 (0.0-0.2) /100WBC PT 10.8 (9.9-13.0) SEC INR 1.0 (0.9-1.1) Sodium 137 (135-145) mmol/L Potassium 4.0 (3.3-5.1) mmol/L Chloride 103 (96-108) mmol/L Carbon Dioxide 26 (22-29) mmol/L Anion Gap 12 (12-20) BUN 12 (9-16) mg/dL Creatinine 0.82 (0.5-1.4) mg/dL Estim Creat Clear Calc 89.8 Estimated GFR > 60 Random Glucose 88 (60-115) mg/dL Calcium 9.6 (8.4-10.2) mg/dL Total Bilirubin 0.4 (0.0-1.0) mg/dL Direct Bilirubin 0.2 (0.0-0.5) mg/dL AST 15 (5-31) U/L ALT 10 (0-31) U/L Alkaline Phosphatase 57 (39-117) U/L Troponin I High Sens (<3.5-17.0) ng/L Total Protein 8.7 H (6.5-8.0) g/dL Albumin 4.2 (3.5-5.0) g/dL Lipase 24 (8-78) U/L COVID-19 ([facility]) (Negative) COVID-19 Clin Com 09/08/21 09/08/21 Range/Units 12:40 12:40 WBC (4.8-10.8) X10*3/uL RBC (4.20-5.50) X10*6/uL Hgb (12.0-16.0) g/dl Hct (37.0-47.0) % MCV (80.0-98.0) fL MCH (27.0-33.0) pg MCHC (31.0-35.0) g/dl RDW (11.0-16.0) % Plt Count (160-400) X10*3/uL MPV (9.4-12.3) fL Immature Gran % (Auto) (0.0-0.4) % Neut % (Auto) (45-73) % Lymph % (Auto) (20-40) % [place] % (Auto) (2-11) % Eos % (Auto) (0-4) % Baso % (Auto) (0-2) % Lymph # (Auto) (1.2-4.9) X10*3/uL [place] # (Auto) (0.1-1.2) X10*3/uL Eos # (Auto) (0.0-0.4) X10*3/uL Baso # (Auto) (0.0-0.2) X10*3/uL Abs Immat Gran (auto) (0.00-0.03) X10*3/uL Absolute Neuts (auto) (2.0-8.3) x10*3/uL Absolute Nucleated RBC (0.0-0.012) X10*3/uL Nucleated RBC % (auto) (0.0-0.2) /100WBC PT (9.9-13.0) SEC INR (0.9-1.1) Sodium (135-145) mmol/L Potassium (3.3-5.1) mmol/L Chloride (96-108) mmol/L Carbon Dioxide (22-29) mmol/L Anion Gap (12-20) BUN (9-16) mg/dL Creatinine (0.5-1.4) mg/dL Estim Creat Clear Calc Estimated GFR Random Glucose (60-115) mg/dL Calcium (8.4-10.2) mg/dL Total Bilirubin (0.0-1.0) mg/dL Direct Bilirubin (0.0-0.5) mg/dL AST (5-31) U/L ALT (0-31) U/L Alkaline Phosphatase (39-117) U/L Troponin I High Sens < 3.5 (<3.5-17.0) ng/L Total Protein (6.5-8.0) g/dL Albumin (3.5-5.0) g/dL Lipase (8-78) U/L COVID-19 ([facility]) Negative (Negative) COVID-19 Clin Com See Note Discharge Plan Discharge Clinical Impression: Atypical chest pain Patient Disposition: Home, Self-Care Instructions: Chest Pain (ED) Additional Instructions: Please follow-up with 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 If you have any worsening or new symptoms, please return to the emergency room or call 911 Prescriptions: New baclofen 5 mg tablet 5 mg PO TID PRN (Reason: Muscle spasms) Qty: 10 0RF No Action alcohol swabs [Alcohol Prep Pads] Pads, Medicated 2 pad topical .COMPLEX Qty: 100 3RF Rx Instructions: 2 pad topical once per week prior to Methotrexate injection; (DME) adhesive bandage 1 bandage See Rx Instructions .ROUTE .MEDSUPPLY Qty: 20 5RF Rx Instructions: Use after Methotrexate injection Narcan 4 mg/actuation spray,non-aerosol 4 mg intranasal Q2M PRN (Reason: opioid overdose) Qty: 2 0RF Rx Instructions: spray 1 dose into ONE nostril; alternate nostrils w each dose until help arrives Orencia ClickJect 125 mg/mL auto-injector 125 mg subcut QWEEK Qty: 4 2RF cyclobenzaprine 5 mg tablet 5 mg PO TID PRN (Reason: muscle spasm) Qty: 14 0RF nystatin 100,000 unit/gram ointment 1 appl topical TID Qty: 30 0RF acetaminophen [Tylenol] 325 mg capsule 325 mg PO QID PRN (Reason: fever or pain) Qty: 20 0RF benztropine 0.5 mg Tablet 0.5 mg PO DAILY 0RF sertraline 100 mg Tablet 100 mg PO DAILY 0RF risperidone 1 mg Tablet 1 mg PO DAILY 0RF gabapentin 400 mg Tablet 400 mg PO TID 0RF Eliquis 5 mg Tablet 5 mg PO BID 0RF oxycodone-acetaminophen [Percocet] 5-325 mg tablet 1 tab PO Q6H PRN (Reason: pain) Qty: 7 0RF penicillin V potassium 500 mg tablet 500 mg PO TID 7 Days Qty: 21 0RF prednisone 10 mg tablet 10 mg PO DAILY Qty: 7 0RF oxycodone-acetaminophen [Percocet] 5-325 mg tablet 1 tab PO Q6H PRN (Reason: pain) Qty: 7 0RF oxycodone 5 mg capsule 5 mg PO Q8H PRN (Reason: pain) Qty: 12 0RF oxycodone 5 mg capsule 5 mg PO Q8H PRN (Reason: pain) Qty: 10 0RF Rx Instructions: partial filling per pt request (DME) Monoject TB Safety Syringe 1 mL 28 gauge x 1/2 syringe See Rx Instructions .ROUTE .MEDSUPPLY Qty: 50 1RF Rx Instructions: As directed - use to inject Methorexate once per week folic acid 1 mg tablet 1 mg PO QAM Qty: 90 3RF prednisone 5 mg tablet 15 mg PO DAILY Qty: 90 2RF pantoprazole 40 mg tablet,delayed release (DR/EC) 40 mg PO DAILY Qty: 90 1RF
[2021-09-08 12:46] LABS: MANUAL DIFF FLAG NO
[2021-09-08 12:57] LABS: Basophils Percent Auto 0.2 % (0-2); Eosinophils Absolute Auto 0.1 X10*3/uL (0.0-0.4); Eosinophils Percent Auto 1.3 % (0-4); Hematocrit 37.7 % (37.0-47.0); Hemoglobin 12.2 g/dl (12.0-16.0); Imm Gran Abs Auto 0.02 X10*3/uL (0.00-0.03); Imm Gran Pct Auto 0.3 % (0.0-0.4); Lymphocytes Absolute Auto 2.1 X10*3/uL (1.2-4.9); Lymphocytes Percent Auto 34.1 % (20-40); Mean Corpuscular HGB Conc 32.4 g/dl (31.0-35.0); Mean Corpuscular Hemoglobin 30.9 pg (27.0-33.0); Mean Corpuscular Volume 95.4 fL (80.0-98.0); Mean Platelet Volume 9.9 fL (9.4-12.3); Monocytes Absolute Auto 0.5 X10*3/uL (0.1-1.2); Monocytes Percent Auto 8.4 % (2-11); Neutrophils Absolute Auto 3.5 x10*3/uL (2.0-8.3); Neutrophils Percent Auto 55.7 % (45-73); Platelet Count 249 X10*3/uL (160-400); Red Blood Count 3.95 X10*6/uL (4.20-5.50); Red Cell Distribution Width 14.2 % (11.0-16.0); White Blood Count 6.2 X10*3/uL (4.8-10.8)
[2021-09-08 13:02] LABS: COVID-19 Test Negative (Negative)
[2021-09-08 13:03] LABS: Prothrombin Time 10.8 SEC (9.9-13.0)
[2021-09-08 13:09] LABS: Alanine Aminotransferase 10 U/L (0-31); Albumin Level 4.2 g/dL (3.5-5.0); Alkaline Phosphatase 57 U/L (39-117); Anion Gap 12 (12-20); Aspartate Amino Transferase 15 U/L (5-31); Bilirubin Direct 0.2 mg/dL (0.0-0.5); Bilirubin Total 0.4 mg/dL (0.0-1.0); Blood Urea Nitrogen 12 mg/dL (9-16); Calcium 9.6 mg/dL (8.4-10.2); Carbon Dioxide 26 mmol/L (22-29); Chloride 103 mmol/L (96-108); Creatinine Clr Calc Pharmacy 89.8; Estimated Glomerular Filt Rate > 60; Glucose Random 88 mg/dL (60-115); Lipase 24 U/L (8-78); Sodium 137 mmol/L (135-145); Total Protein 8.7 g/dL (6.5-8.0)
[2021-09-08 13:15] LABS: Troponin-I High Sensitivity < 3.5 ng/L (<3.5-17.0)
== END 2021-09-08 14:18 | disposition home or self-care (01) ==
PROVIDERS: Emergency Provider Emergency Medicine
DX: M79.10 Myalgia, unspecified site (principal); R10.9 Unspecified abdominal pain; R07.89 Other chest pain; F17.200 Nicotine dependence, unspecified, uncomplicated; F12.90 Cannabis use, unspecified, uncomplicated; Z71.6 Tobacco abuse counseling; Z20.822 Contact with and (suspected) exposure to COVID-19; Z79.899 Other long term (current) drug therapy
CPT/HCPCS: 36415; 71045; 80048; 80076; 83690; 84484; 85025; 85610; 87635; 93005; 99283

== ENCOUNTER → 2021-10-05 09:41 | Outpatient (BNVA) | payer MEDICAID, SELFPAY | PROVIDERS: Visit Provider Internal Medicine Gastroenterology ==

== ENCOUNTER 2021-10-08 11:07 | Day surgery (SDC) | payer MEDICAID, SELFPAY ==
[2021-10-08 12:44] VITALS: BMI 29.9
--- NOTE | 2021-10-08 13:02 | MHC.SHP ---
Pre-Procedural Eval Section A Date of Service: 10/08/21 The patient is an INPATIENT: No The History & Physical has been completed within 30 days and I have reviewed it.: Yes Section B Chief Complaint: Rheumatoid arthritis, Details of Present Illness: epigastric pain Allergies: Allergies Allergy/AdvReac Type Severity Reaction Status Date / Time almond [ALMONDS] Allergy Severe ANAPHYLAXIS Verified 10/05/21 09:41 adhesive tape [ADHESIVE TAPE] Allergy Intermediate RASH Verified 10/05/21 09:41 morphine [MORPHINE] Allergy Intermediate GI UPSET, Verified 10/05/21 09:41 difficulty breathing tramadol [TRAMADOL] AdvReac Unknown NAUSEA & Verified 10/05/21 09:41 VOMITING Plan Diagnosis/Plan: Unchanged I have reviewed the history and physical and performed a pertinent physical examination on my patient. No changes have occurred unless specified.
[2021-10-08 13:06] VITALS: BP 114/58; PULSE 59; RESP 16; TEMP 36.2; O2SAT 96
--- NOTE | 2021-10-08 13:52 | P.CONAN_ITS ---
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) Seroma (Acute) Deep vein thrombosis, upper right extremity (Acute) Right hand pain (Acute) Numbness and tingling in both hands (Acute) Trigger finger, right index finger (Acute) Mass of soft tissue of right upper extremity (Acute) Patellofemoral arthritis (Acute) Fibromyalgia (Acute) Iron deficiency (Acute) RUQ pain (Acute) Hodgkin disease (Chronic) Past Medical History Medical History Acute arthritis Bleeding hemorrhoid Bone cancer Cancer of heart Chronic GERD De Quervain's disease (tenosynovitis) Degeneration of intervertebral disc at C4-C5 level Degeneration, intervertebral disc, lumbar Depressive disorder Esophageal dysphagia Fibromyalgia Gallstones History of chemotherapy History of chemotherapy Hodgkin disease Lung cancer Nocturia Osteoarthritis of spine with radiculopathy, lumbar region Rheumatoid arthritis involving multiple sites Seropositive rheumatoid arthritis Stress incontinence in female Systemic lupus erythematosus Urgency-frequency syndrome Vitamin D deficiency Surgical History Surgical History H/O tubal ligation History of esophagogastroduodenoscopy (EGD) History of lymph node dissection of left axilla History of repair of inguinal hernia Hx laparoscopic cholecystectomy Hx of colonoscopy Hx of endoscopy History of Problems with Anesthesia: No Social History Social History Alcohol intake: current Alcohol intake frequency: does not drink Patient Tobacco Use Status: Current everyday Tobacco user Tobacco use type: Cigarette Cigarettes Per Day: 3 Use of substances other than those prescribed or required for medical reasons: Yes Substance Use Type: Marijuana Are you DNR?: No Advance Directives: No Advance Directives Information Provided: Yes Advance Directives Date on File: 09/23/20 Current occupational status: disabled 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 Meds Allergies Allergy/AdvReac Type Severity Reaction Status Date / Time almond [ALMONDS] Allergy Severe ANAPHYLAXIS Verified 10/05/21 09:41 adhesive tape [ADHESIVE TAPE] Allergy Intermediate RASH Verified 10/05/21 09:41 morphine [MORPHINE] Allergy Intermediate GI UPSET, Verified 10/05/21 09:41 difficulty breathing tramadol [TRAMADOL] AdvReac Unknown NAUSEA & Verified 10/05/21 09:41 VOMITING Active Medications: Current Medications Lactated Ringer's (Lr) 1,000 mls @ 50 mls/hr IVCONT .Q20H [facility] Home Medications Medication Instructions Recorded Confirmed Last Taken Type benztropine 0.5 mg tablet 0.5 mg PO DAILY 05/01/20 10/02/21 05/01/20 09:09 History gabapentin 400 mg tablet 400 mg PO TID 05/01/20 10/02/21 05/01/20 09:09 History risperidone 1 mg tablet 1 mg PO DAILY 05/01/20 10/02/21 05/01/20 09:09 History sertraline 100 mg tablet 100 mg PO DAILY 05/01/20 10/02/21 05/01/20 09:09 History alprazolam 2 mg tablet 2 mg PO BEDTIME 09/17/21 10/02/21 Unknown History albuterol sulfate 90 mcg/actuation 2 puff PO Q4-6H PRN 10/02/21 10/02/21 Unknown History aerosol inhaler (ProAir HFA) aspirin 81 mg tablet,delayed 1 tab PO QAM 10/02/21 10/02/21 Unknown History release cyclobenzaprine 5 mg tablet 1 tab PO TID PRN 10/02/21 10/02/21 Unknown History diclofenac sodium 1 % topical gel 4 g TOPICAL BID 10/02/21 10/02/21 Unknown History duloxetine 60 mg capsule,delayed 1 cap PO DAILY 10/02/21 10/02/21 Unknown History release famotidine 20 mg tablet 1 tab PO BID 10/02/21 10/02/21 Unknown History ferrous sulfate 325 mg (65 mg 1 tab PO QAM 10/02/21 10/02/21 Unknown History iron) tablet (FeroSul) hydroxychloroquine 200 mg tablet 1 tab PO QAM 10/02/21 10/02/21 Unknown History lidocaine 5 % topical patch patch TOPICAL 10/02/21 Unknown History methotrexate sodium 2.5 mg tablet 4 tab PO QWEEK 10/02/21 10/02/21 Unknown History nicotine (polacrilex) 4 mg buccal mg PO 10/02/21 Unknown History lozenge pantoprazole 40 mg tablet,delayed 1 tab PO DAILY 10/02/21 10/02/21 Unknown History release apixaban 5 mg tablet (Eliquis) 1 tab PO 10/07/21 10/07/21 Unknown History Exam Exam Date and Time: October 08, 2021 1352 Height,Weight and Vital Signs: Height 5 ft 6 in Weight 84.368 kg Last Vital Signs Temp 97.1 F 10/08/21 13:06 Pulse 59 10/08/21 13:06 Resp 16 10/08/21 13:06 BP 114/58 L 10/08/21 13:06 Pulse Ox 96 10/08/21 13:06 Airway Mallampati Class: III (Poor dentition) TM Dist: >3cm Neck ROM: Full Loose/Missing/Broken Teeth: No Heart: RRR Lungs: CTA Assessment and Plan Assessment Anesthesia Assessment: Anesthesia Plan Discussed and Chart Reviewed Final Anesthetic Review History of Problems with Anesthesia: No NPO: Yes ASA Class: III Final Preanesthetic Review: Meds/Allgs Chart Reviewed, Consent Obtained/Reviewed and Anes Risks/Benef Reviewed Patient Risk: Intermediate Procedure Risk: Intermediate Anesthetic Plan Anesthetic Plan: MAC: Disposition: Standard PACU
--- NOTE | 2021-10-08 15:08 | PM.OP ---
Brief Operative Note Date of Service: 10/08/21 Pre-op diagnosis: epigastric pain Post-op diagnosis: same Procedure: see op note Surgeon: Verna Gambino MD Anesthesia: MAC Was an News Correspondent used for this Procedure?: No Estimated blood loss (mL): 0 Condition: stable Disposition: PACU
--- NOTE | 2021-10-08 15:08 | W.PM.OPN ---
Operative Note Operative Note Date of Service: 10/08/21 Narrative: Procedure Description: EGD FLEXIBLE TRANSORAL UPPER GASTROINTESTINAL ENDOSCOPY UPPER ENDOSCOPY Consent: Indications for the procedure and potential complications of bleeding, perforation, reaction to medications and missed diagnosis were discussed with the patient and informed consent was obtained. Instrument: Olympus GIF H 190 J mid size upper endoscope Monitoring: Vital signs and clinical assessment, continuous EKG monitoring, Pulse oximetry, Carbon Dioxide monitoring and blood pressure monitoring were done throughout the procedure. Procedure: The patient was placed in the left lateral decubitis position and pre-procedure medications were administered and a bite block was placed. The endoscope was inserted into the mouth and advanced under direct vision to the third part of duodenum. A careful inspection was made as the upper endoscope was withdrawn including a retroflexed examination of the proximal stomach; Findings and interventions are described below. Findings: Larynx:normal Esophagus: GE junction at 38 cm, diaphragm hiatus at 38 cm, middle erythema and bogginess at GEJ, bx taken Stomach: Patchy gastric erythema with bile refluxate noted. Biopsies were obtained. Grade 2 flap valve on retroflexed examination of the cardia. Duodenum: Patchy erythema, bx taken Intervention: Biopsies as noted above Impression/Findings: bile acid reflux gastropathy esophagitis peptic duodenitis PLAN: trial of urosdiol, if no better after this for 4-8 weeks then trial of colestipol aait bx results
[2021-10-08 15:19] VITALS: BP 113/61; PULSE 80; RESP 20; TEMP 36.4; O2SAT 96
[2021-10-08 15:34] VITALS: BP 114/54; PULSE 54; RESP 20; O2SAT 97
[2021-10-08] MEDS: Acetaminophen 325 MG TABLET 975 MG PO (15:42)
[2021-10-08] MEDS: Mag&Al/Sim/Diphenhyd/Lidocaine 10 ML ORAL.SUSP PO (15:43)
[2021-10-08 15:49] VITALS: BP 134/71; PULSE 55; RESP 20; O2SAT 99
[2021-10-08 16:04] VITALS: BP 134/91; PULSE 57; RESP 20; TEMP 36.4; O2SAT 99
== END 2021-10-08 16:43 | disposition home or self-care (01) ==
PROVIDERS: Visit Provider Internal Medicine Gastroenterology
PROC: 0DJ08ZZ Inspection of Upper Intestinal Tract, Via Natural or Artificial Opening Endoscopic (ICD-10-PCS; CPT 43235; principal; 2021-10-08 14:00)
DX: R10.13 Epigastric pain (principal); G89.4 Chronic pain syndrome; K20.80 Other esophagitis without bleeding; K29.80 Duodenitis without bleeding; K21.9 Gastro-esophageal reflux disease without esophagitis; K31.9 Disease of stomach and duodenum, unspecified; K44.9 Diaphragmatic hernia without obstruction or gangrene; R19.7 Diarrhea, unspecified; M32.9 Systemic lupus erythematosus, unspecified; M06.9 Rheumatoid arthritis, unspecified; E55.9 Vitamin D deficiency, unspecified; Z79.899 Other long term (current) drug therapy; Z79.82 Long term (current) use of aspirin; Z88.8 Allergy status to other drugs, medicaments and biological substances; Z90.49 Acquired absence of other specified parts of digestive tract; F17.210 Nicotine dependence, cigarettes, uncomplicated; F12.90 Cannabis use, unspecified, uncomplicated
CPT/HCPCS: 43239; 88305; 88342; J3010

== ENCOUNTER 2021-10-09 11:41 | Outpatient (REF) | payer MEDICAID, SELFPAY ==
--- NOTE | ~2021-10-09 | MM_ITS ---
EXAMINATION: MM SCREENING DIGITAL BREAST TOMOSYNTHESIS, BILATERAL CLINICAL INFORMATION: Screening. Asymptomatic. History Hodgkin's. The lifetime risk of breast cancer based on the Tyrer-Cuzick Model is 8%. COMPARISON: Mammography: 11/24/2018, 02/21/2017, 02/20/2016 TECHNIQUE: Digital breast tomosynthesis is performed in both the craniocaudal and mediolateral oblique views along with computer-aided detection (CAD). Synthesized 2D images are generated from the tomosynthesis. Additional left cleavage view is provided. FINDINGS: There are scattered areas of fibroglandular density (ACR BI-RADS breast composition Category b). Breast parenchymal pattern is similar to prior exams. There are scattered minor asymmetries similar to prior study. No developing density or interval mass or abnormal calcifications. There are right axillary clips prior exam. The skin contours are smooth. MM/MM tomosynthesis screening BI IMPRESSION: No significant changes from prior study. ASSESSMENT: BI-RADS 2: Benign RECOMMENDATION: Routine annual mammography screening. This patient's information was entered into a reminder system with a target due date for their next mammogram.
== END 2021-10-09 11:42 | disposition home or self-care (01) ==
LOC: HO.MAMMO 11:41
PROVIDERS: Visit Provider General Practice
DX: Z12.31 Encounter for screening mammogram for malignant neoplasm of breast (principal)
CPT/HCPCS: 77063; 77067

== ENCOUNTER 2021-10-22 12:51 | Emergency (ER) | payer MEDICAID, SELFPAY ==
--- NOTE | ~2021-10-22 | XR_ITS ---
EXAMINATION: XR CHEST CLINICAL INFORMATION: AMS COMPARISON: Chest 09/08/2021 TECHNIQUE: Frontal view of the chest was obtained. FINDINGS: No significant abnormality is noted involving the heart, lungs, mediastinum, bony thorax or soft tissues. XR/XR chest 1V IMPRESSION: Unremarkable chest examination.
--- NOTE | ~2021-10-22 | CT_ITS ---
EXAMINATION: CT HEAD WITHOUT CONTRAST (STROKE PROTOCOL) CLINICAL INFORMATION: Stroke protocol. Right-sided weakness COMPARISON: None TECHNIQUE: Contiguous axial imaging was performed from the skull base to vertex without intravenous administration of contrast. This CT examination was performed using dose optimization techniques as appropriate, variously including the following: *Automated exposure control *Adjustment of mA and/or kV according to patient size (this includes techniques or standardized protocols for targeted exams where dose is matched to indication/reason for exam; i.e. extremities or head) *Use of iterative reconstruction technique DLP: 595 mGy-cm FINDINGS: There is no intracranial hemorrhage, hematoma, or extra-axial fluid collection. The ventricles are normal in size. There is no hydrocephalus, edema, or mass effect. The lozano-white matter differentiation appears symmetric. There is no acute infarct or mass lesion. The calvarium appears intact. There is no pneumocephalus or orbital emphysema. The visualized sinuses and middle ears and mastoid air cells show no significant mucosal thickening. There are no air-fluid levels. CT/CT head for stroke IMPRESSION: No acute intracranial process seen. This critical result was discussed with Dr. Veena Pathak at 1:08 PM on 10/22/2021. It was ascertained that the content and urgency of the report was understood at the time of direct communication.
--- NOTE | 2021-10-22 12:55 | ED.GENADULT ---
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 She has no actual neuro deficits on exam. All symptoms started while sleeping in the middle of the night. She is compliant with her medications. She is under a lot of stress due to issues with a neighbor. Denies any other triggers. MD complaint: R sided pain and swelling Onset (ago): day(s) (while sleeping) Location: right, upper extremity and lower extremity Radiation: non-radiation Severity: severe Quality: constant and other (throbbing) Pain Consistency: constant Relieving factors: none Exacerbating factors: movement and other (palpation of areas) Associated symptoms: malaise and other (anxiety, swelling of areas) Treatments prior to arrival: other (took all of her medications including her 20mg prednisone) Related Data Home Medications Medication Instructions Recorded Confirmed benztropine 0.5 mg tablet 0.5 mg PO DAILY 05/01/20 10/22/21 risperidone 1 mg tablet 1 mg PO BEDTIME 05/01/20 10/22/21 alprazolam 2 mg tablet 2 mg PO BEDTIME PRN 09/17/21 10/22/21 albuterol sulfate 90 mcg/actuation 2 puff PO Q4-6H PRN 10/02/21 10/22/21 aerosol inhaler (ProAir HFA) aspirin 81 mg tablet,delayed 1 tab PO QAM 10/02/21 10/22/21 release cyclobenzaprine 5 mg tablet 1 tab PO TID PRN 10/02/21 10/22/21 diclofenac sodium 1 % topical gel 4 g TOPICAL BID 10/02/21 10/22/21 duloxetine 60 mg capsule,delayed 1 cap PO BID 10/02/21 10/22/21 release famotidine 20 mg tablet 1 tab PO BID@1200,2100 10/02/21 10/22/21 ferrous sulfate 325 mg (65 mg 1 tab PO QAM 10/02/21 10/22/21 iron) tablet (FeroSul) hydroxychloroquine 200 mg tablet 1 tab PO QAM 10/02/21 10/22/21 methotrexate sodium 2.5 mg tablet 4 tab PO Q14D 10/02/21 10/22/21 pantoprazole 40 mg tablet,delayed 1 tab PO DAILY 10/02/21 10/22/21 release apixaban 5 mg tablet (Eliquis) 5 mg PO BID 10/07/21 10/22/21 abatacept 125 mg/mL subcutaneous 125 mg SUBCUT Q2W 10/22/21 10/22/21 auto-injector (Orencia ClickJect) docusate sodium 100 mg tablet 100 mg PO BID PRN 10/22/21 10/22/21 gabapentin 400 mg capsule 400 mg PO TID 10/22/21 10/22/21 gabapentin 400 mg capsule 400 mg PO TID PRN 10/22/21 10/22/21 oxycodone-acetaminophen 5 mg-325 1 tab PO Q8H PRN 10/22/21 10/22/21 mg tablet (Percocet) prednisone 10 mg tablet 20 mg PO DAILY 10/22/21 10/22/21 risperidone 1 mg tablet 0.5 mg PO DAILY PRN 10/22/21 10/22/21 trazodone 150 mg tablet 1 tab PO BEDTIME PRN 10/22/21 10/22/21 Previous Rx's Medication Instructions Recorded adhesive bandage 1 #20 ea 05/21/20 folic acid 1 mg tablet 1 mg PO QAM #90 tab 02/11/21 syringe with needle, safety 1 mL #50 ea 02/11/21 28 gauge x 1/2 (Monoject TB Safety Syringe) baclofen 5 mg tablet 5 mg PO TID PRN #10 tab 09/08/21 ursodiol 500 mg tablet 500 mg PO BID #90 tab 10/08/21 oxycodone 5 mg tablet 5 mg PO TID PRN #12 tab 10/22/21 Allergies Allergy/AdvReac Type Severity Reaction Status Date / Time almond [ALMONDS] Allergy Severe ANAPHYLAXIS Verified 10/05/21 09:41 adhesive tape [ADHESIVE TAPE] Allergy Intermediate RASH Verified 10/05/21 09:41 morphine [MORPHINE] Allergy Intermediate GI UPSET, Verified 10/05/21 09:41 difficulty breathing tramadol [TRAMADOL] AdvReac Unknown NAUSEA & Verified 10/05/21 09:41 VOMITING Review of Systems Review of Systems: Constitutional : No Fever, No Chills, pos malaise ENT/Mouth : No Ear Pain, No Hoarseness, No sore throat Eyes: No Eye Pain, No Swelling, No Redness, No Foreign Body Cardiovascular : No Chest Pain, No SOB Respiratory : No Cough, No Dyspnea Gastrointestinal : No Nausea, No Vomiting, No Diarrhea, No abdominal Pain Genitourinary : No Dysuria, No Hematuria Musculoskeletal : positive joint pain, pos Myalgias, pos Joint Swelling Skin : No Skin lacerations, No rash Neuro : No Weakness, No Numbness, No Loss of Consciousness, No Dizziness, pos Headache Psych : pos Anxiety/Panic, No Depression Heme/Lymph: no easy bruising, no Lymphadenopathy Endocrine : No Polyuria, No Polydipsia All other systems reviewed and are negative [facility] Past Medical History Medical History Acute arthritis Bleeding hemorrhoid Bone cancer Cancer of heart Chronic GERD De Quervain's disease (tenosynovitis) Degeneration of intervertebral disc at C4-C5 level Degeneration, intervertebral disc, lumbar Depressive disorder Esophageal dysphagia Fibromyalgia Gallstones History of chemotherapy History of chemotherapy Hodgkin disease Lung cancer Nocturia Osteoarthritis of spine with radiculopathy, lumbar region Rheumatoid arthritis involving multiple sites Seropositive rheumatoid arthritis Stress incontinence in female Systemic lupus erythematosus Urgency-frequency syndrome Vitamin D deficiency Surgical History H/O tubal ligation History of esophagogastroduodenoscopy (EGD) History of lymph node dissection of left axilla History of repair of inguinal hernia Hx laparoscopic cholecystectomy Hx of colonoscopy Hx of endoscopy Social History Social History Alcohol intake: current Alcohol intake frequency: does not drink Patient Tobacco Use Status: Current everyday Tobacco user Tobacco use type: Cigarette Cigarettes Per Day: 3 Substance Use Type: Marijuana Advance Directives: Yes Advance Directives on File: Yes Advance Directives Date on File: 09/23/20 Current occupational status: disabled 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 Oriented X3. No acute distress. Anxious Eyes: Pupils equal, round and reactive to light. ENT: Pharynx normal. Neck: Normal inspection. Neck supple. CVS: Normal heart rate and rhythm. Pulses normal. Respiratory: No respiratory distress. Breath sounds normal. Abdomen: Soft and non-tender. Skin: Skin warm and dry. Normal skin color. Normal skin turgor. Extremities: Edema bogginess to R hand and R ankle area mild warmth no erythema, no calf swelling Neuro: Oriented X 3. RUE and RLE 4+/5 intact this is due to swelling and pain in ankle and hand cannot perform due to pain not weakness . No sensory deficit. CN 2-12 intact NIH Stroke Scale Internal: Initial- Upon Arrival Level of Consciousness: Alert Level of Consciousness Questions: Answers both questions correctly Level of Consciousness Commands: Performs both tasks correctly Best Gaze: Normal Visual: No visual loss Facial Palsy: Normal Motor Arm (Right): Drift Motor Arm (Left): No drift Motor Leg (Right): Drift Motor Leg (Left): No drift Limb Ataxia: Absent Sensory: Normal Best Language: No aphasia Dysarthia: Normal Extinction and Inattention: No abnormality Score: 2 Course Course Course Narrative: NIH score of 2 is only due to pain this is not related to actual weakness her RUE and R leg is swollen at the wrist / ankle and joints suspect this is lupus flare and not stroke, she is on eliquis as well, her symptoms started upon waking this AM she was normal before bed last night - at this time she is not a candidate for tPa given symptoms related to lupus/pain, eliquis use, onset > 12 hours ago. on phone using R arm and hand to talk on the phone without issue. At this time once workup is negative will likely DC home with pain control vs rehab. up and to the bathroom on her own without any assistance or issue. can manage her pain at home. Medical Decision Making MDM Narrative Medical decision making narrative: 46 year old female with hx of lupus, OA, DVT in RUE on eliquis, RA, chronic pain syndrome, Hodgkin's lymphoma - remote, at this time she is presenting with both R hand and R foot pain/swelling most likely RA/lupus flare. She is stressed out at home due to issue with her neighbor - will obtain CT head initially given she was very anxious on arrival and wouldn't speak to r/o ICH, labs including infl markers, IV steroids, IV pain medications. Lab Data Result diagrams: 10/22/21 14:01 10/22/21 14:01 Labs: Lab Results 10/22/21 10/22/21 10/22/21 Range/Units 13:04 13:13 14:01 WBC 8.3 (4.8-10.8) X10*3/uL RBC 3.79 L (4.20-5.50) X10*6/uL Hgb 11.6 L (12.0-16.0) g/dl Hct 38.1 (37.0-47.0) % MCV 100.5 H (80.0-98.0) fL MCH 30.6 (27.0-33.0) pg MCHC 30.4 L (31.0-35.0) g/dl RDW 13.2 (11.0-16.0) % Plt Count 260 (160-400) X10*3/uL MPV 10.0 (9.4-12.3) fL Immature Gran % (Auto) 0.4 (0.0-0.4) % Neut % (Auto) 61.3 (45-73) % Lymph % (Auto) 33.6 (20-40) % Aiken % (Auto) 4.1 (2-11) % Eos % (Auto) 0.5 (0-4) % Baso % (Auto) 0.1 (0-2) % Lymph # (Auto) 2.8 (1.2-4.9) X10*3/uL Aiken # (Auto) 0.3 (0.1-1.2) X10*3/uL Eos # (Auto) 0.0 (0.0-0.4) X10*3/uL Baso # (Auto) 0.0 (0.0-0.2) X10*3/uL Abs Immat Gran (auto) 0.03 (0.00-0.03) X10*3/uL Absolute Neuts (auto) 5.1 (2.0-8.3) x10*3/uL Absolute Nucleated RBC 0.000 (0.0-0.012) X10*3/uL Nucleated RBC % (auto) 0.0 (0.0-0.2) /100WBC ESR (0-20) MM/HR PT (9.9-13.0) SEC Whole Blood PT 13.2 (11.1-13.5) sec INR (0.9-1.1) Whole Blood INR 1.1 (0.9-1.1) APTT (24.1-38.0) SEC VBG pH (7.32-7.43) VBG pCO2 mmHg VBG pO2 mmHg VBG HCO3 (22-26) mmol/L VBG O2 Saturation % Sodium (135-145) mmol/L Potassium (3.3-5.1) mmol/L Chloride (96-108) mmol/L Carbon Dioxide (22-29) mmol/L Anion Gap (12-20) BUN (9-16) mg/dL Creatinine (0.5-1.4) mg/dL Estim Creat Clear Calc Estimated GFR POC Glucose 70 (60-115) mg/dL Random Glucose (60-115) mg/dL Lactic Acid (0.5-2.0) mmol/L Calcium (8.4-10.2) mg/dL Magnesium (1.6-2.6) mg/dL Total Bilirubin (0.0-1.0) mg/dL Direct Bilirubin (0.0-0.5) mg/dL AST (5-31) U/L ALT (0-31) U/L Alkaline Phosphatase (39-117) U/L Ammonia (13-55) umol/L Troponin I High Sens (<3.5-17.0) ng/L C-Reactive Protein (< or = 0.50) mg/dL Total Protein (6.5-8.0) g/dL Albumin (3.5-5.0) g/dL Lipase (8-78) U/L Ethyl Alcohol mg/dL COVID-19 (VANGIE) (Negative) COVID-19 Clin Com 10/22/21 10/22/21 10/22/21 Range/Units 14:01 14:01 14:01 WBC (4.8-10.8) X10*3/uL RBC (4.20-5.50) X10*6/uL Hgb (12.0-16.0) g/dl Hct (37.0-47.0) % MCV (80.0-98.0) fL MCH (27.0-33.0) pg MCHC (31.0-35.0) g/dl RDW (11.0-16.0) % Plt Count (160-400) X10*3/uL MPV (9.4-12.3) fL Immature Gran % (Auto) (0.0-0.4) % Neut % (Auto) (45-73) % Lymph % (Auto) (20-40) % Aiken % (Auto) (2-11) % Eos % (Auto) (0-4) % Baso % (Auto) (0-2) % Lymph # (Auto) (1.2-4.9) X10*3/uL Aiken # (Auto) (0.1-1.2) X10*3/uL Eos # (Auto) (0.0-0.4) X10*3/uL Baso # (Auto) (0.0-0.2) X10*3/uL Abs Immat Gran (auto) (0.00-0.03) X10*3/uL Absolute Neuts (auto) (2.0-8.3) x10*3/uL Absolute Nucleated RBC (0.0-0.012) X10*3/uL Nucleated RBC % (auto) (0.0-0.2) /100WBC ESR 58 H (0-20) MM/HR PT 10.6 (9.9-13.0) SEC Whole Blood PT (11.1-13.5) sec INR 0.9 (0.9-1.1) Whole Blood INR (0.9-1.1) APTT 28.4 (24.1-38.0) SEC VBG pH (7.32-7.43) VBG pCO2 mmHg VBG pO2 mmHg VBG HCO3 (22-26) mmol/L VBG O2 Saturation % Sodium 139 (135-145) mmol/L Potassium 3.9 (3.3-5.1) mmol/L Chloride 106 (96-108) mmol/L Carbon Dioxide 24 (22-29) mmol/L Anion Gap 13 (12-20) BUN 11 (9-16) mg/dL Creatinine 0.72 (0.5-1.4) mg/dL Estim Creat Clear Calc 105.0 Estimated GFR > 60 POC Glucose (60-115) mg/dL Random Glucose 76 (60-115) mg/dL Lactic Acid (0.5-2.0) mmol/L Calcium 9.6 (8.4-10.2) mg/dL Magnesium 2.4 (1.6-2.6) mg/dL Total Bilirubin 0.3 (0.0-1.0) mg/dL Direct Bilirubin < 0.2 (0.0-0.5) mg/dL AST 11 (5-31) U/L ALT 9 (0-31) U/L Alkaline Phosphatase 54 (39-117) U/L Ammonia (13-55) umol/L Troponin I High Sens (<3.5-17.0) ng/L C-Reactive Protein 1.06 H (< or = 0.50) mg/dL Total Protein 8.5 H (6.5-8.0) g/dL Albumin 4.0 (3.5-5.0) g/dL Lipase 37 (8-78) U/L Ethyl Alcohol mg/dL COVID-19 (VANGIE) (Negative) COVID-19 Clin Com 10/22/21 10/22/21 10/22/21 Range/Units 14:01 14:01 14:01 WBC (4.8-10.8) X10*3/uL RBC (4.20-5.50) X10*6/uL Hgb (12.0-16.0) g/dl Hct (37.0-47.0) % MCV (80.0-98.0) fL MCH (27.0-33.0) pg MCHC (31.0-35.0) g/dl RDW (11.0-16.0) % Plt Count (160-400) X10*3/uL MPV (9.4-12.3) fL Immature Gran % (Auto) (0.0-0.4) % Neut % (Auto) (45-73) % Lymph % (Auto) (20-40) % Aiken % (Auto) (2-11) % Eos % (Auto) (0-4) % Baso % (Auto) (0-2) % Lymph # (Auto) (1.2-4.9) X10*3/uL Aiken # (Auto) (0.1-1.2) X10*3/uL Eos # (Auto) (0.0-0.4) X10*3/uL Baso # (Auto) (0.0-0.2) X10*3/uL Abs Immat Gran (auto) (0.00-0.03) X10*3/uL Absolute Neuts (auto) (2.0-8.3) x10*3/uL Absolute Nucleated RBC (0.0-0.012) X10*3/uL Nucleated RBC % (auto) (0.0-0.2) /100WBC ESR (0-20) MM/HR PT (9.9-13.0) SEC Whole Blood PT (11.1-13.5) sec INR (0.9-1.1) Whole Blood INR (0.9-1.1) APTT (24.1-38.0) SEC VBG pH (7.32-7.43) VBG pCO2 mmHg VBG pO2 mmHg VBG HCO3 (22-26) mmol/L VBG O2 Saturation % Sodium (135-145) mmol/L Potassium (3.3-5.1) mmol/L Chloride (96-108) mmol/L Carbon Dioxide (22-29) mmol/L Anion Gap (12-20) BUN (9-16) mg/dL Creatinine (0.5-1.4) mg/dL Estim Creat Clear Calc Estimated GFR POC Glucose (60-115) mg/dL Random Glucose (60-115) mg/dL Lactic Acid 1.8 (0.5-2.0) mmol/L Calcium (8.4-10.2) mg/dL Magnesium (1.6-2.6) mg/dL Total Bilirubin (0.0-1.0) mg/dL Direct Bilirubin (0.0-0.5) mg/dL AST (5-31) U/L ALT (0-31) U/L Alkaline Phosphatase (39-117) U/L Ammonia 25 (13-55) umol/L Troponin I High Sens 3.6 (<3.5-17.0) ng/L C-Reactive Protein (< or = 0.50) mg/dL Total Protein (6.5-8.0) g/dL Albumin (3.5-5.0) g/dL Lipase (8-78) U/L Ethyl Alcohol mg/dL COVID-19 (VANGIE) (Negative) COVID-19 Clin Com 10/22/21 10/22/21 10/22/21 Range/Units 14:01 14:01 14:04 WBC (4.8-10.8) X10*3/uL RBC (4.20-5.50) X10*6/uL Hgb (12.0-16.0) g/dl Hct (37.0-47.0) % MCV (80.0-98.0) fL MCH (27.0-33.0) pg MCHC (31.0-35.0) g/dl RDW (11.0-16.0) % Plt Count (160-400) X10*3/uL MPV (9.4-12.3) fL Immature Gran % (Auto) (0.0-0.4) % Neut % (Auto) (45-73) % Lymph % (Auto) (20-40) % Aiken % (Auto) (2-11) % Eos % (Auto) (0-4) % Baso % (Auto) (0-2) % Lymph # (Auto) (1.2-4.9) X10*3/uL Aiken # (Auto) (0.1-1.2) X10*3/uL Eos # (Auto) (0.0-0.4) X10*3/uL Baso # (Auto) (0.0-0.2) X10*3/uL Abs Immat Gran (auto) (0.00-0.03) X10*3/uL Absolute Neuts (auto) (2.0-8.3) x10*3/uL Absolute Nucleated RBC (0.0-0.012) X10*3/uL Nucleated RBC % (auto) (0.0-0.2) /100WBC ESR (0-20) MM/HR PT (9.9-13.0) SEC Whole Blood PT (11.1-13.5) sec INR (0.9-1.1) Whole Blood INR (0.9-1.1) APTT (24.1-38.0) SEC VBG pH 7.40 (7.32-7.43) VBG pCO2 34 mmHg VBG pO2 44 mmHg VBG HCO3 21 L (22-26) mmol/L VBG O2 Saturation 67.0 % Sodium (135-145) mmol/L Potassium (3.3-5.1) mmol/L Chloride (96-108) mmol/L Carbon Dioxide (22-29) mmol/L Anion Gap (12-20) BUN (9-16) mg/dL Creatinine (0.5-1.4) mg/dL Estim Creat Clear Calc Estimated GFR POC Glucose (60-115) mg/dL Random Glucose (60-115) mg/dL Lactic Acid (0.5-2.0) mmol/L Calcium (8.4-10.2) mg/dL Magnesium (1.6-2.6) mg/dL Total Bilirubin (0.0-1.0) mg/dL Direct Bilirubin (0.0-0.5) mg/dL AST (5-31) U/L ALT (0-31) U/L Alkaline Phosphatase (39-117) U/L Ammonia (13-55) umol/L Troponin I High Sens (<3.5-17.0) ng/L C-Reactive Protein (< or = 0.50) mg/dL Total Protein (6.5-8.0) g/dL Albumin (3.5-5.0) g/dL Lipase (8-78) U/L Ethyl Alcohol < 10 mg/dL COVID-19 (VANGIE) Negative (Negative) COVID-19 Clin Com See Note ECG Data Attestation: I personally reviewed and interpreted this ECG as follows: Interpretation: Rate: 58 Rhythm: sinus bradycardia [place]: left, LVH Normal P waves. Normal JAMES. Normal QRS complex. ST T wave : no JHON, normal qTC: normal prior studies: no acute ischemia The study has been interpreted contemporaneously by me. Discharge Plan Discharge Clinical Impression: Polyarthralgia, Exacerbation of systemic lupus Patient Disposition: Home, Self-Care Instructions: Arthralgia (ED), Autoimmune Disease (ED) Additional Instructions: return to ED for any worsening symptoms or concerns continue the prednisone at 20mg until symptoms improved - discuss with your primary care doctor contin?e con la prednisona a 20 mg hasta que los s?ntomas mejoren; hable con kessler m?dico de atenci?n primaria Prescriptions: New oxycodone 5 mg tablet 5 mg PO TID PRN (Reason: pain) Qty: 12 0RF Rx Instructions: short course due to lupus exacerbation No Action (DME) adhesive bandage 1 bandage See Rx Instructions .ROUTE .MEDSUPPLY Qty: 20 5RF Rx Instructions: Use after Methotrexate injection benztropine 0.5 mg Tablet 0.5 mg PO DAILY 0RF risperidone 1 mg Tablet 1 mg PO BEDTIME 0RF alprazolam 2 mg Tablet 2 mg PO BEDTIME PRN (Reason: INSOMINIA, ANXITEY) 0RF baclofen 5 mg tablet 5 mg PO TID PRN (Reason: Muscle spasms) Qty: 10 0RF gabapentin 400 mg capsule 400 mg PO TID PRN (Reason: Pain) 0RF gabapentin 400 mg capsule 400 mg PO TID 0RF trazodone 150 mg tablet 1 tab PO BEDTIME PRN (Reason: Sleep) 0RF risperidone 1 mg tablet 0.5 mg PO DAILY PRN (Reason: Agitation) 0RF docusate sodium 100 mg Tablet 100 mg PO BID PRN (Reason: Constipation) 0RF oxycodone-acetaminophen [Percocet] 5-325 mg tablet 1 tab PO Q8H PRN (Reason: pain) 0RF prednisone 10 mg tablet 20 mg PO DAILY 0RF Orencia ClickJect 125 mg/mL auto-injector 125 mg subcut Q2W 0RF aspirin 81 mg tablet,delayed release (DR/EC) 1 tab PO QAM 0RF famotidine 20 mg tablet 1 tab PO BID@1200,2100 0RF methotrexate sodium 2.5 mg tablet 4 tab PO Q14D 0RF pantoprazole 40 mg tablet,delayed release (DR/EC) 1 tab PO DAILY 0RF ferrous sulfate [FeroSul] 325 mg (65 mg iron) tablet 1 tab PO QAM 0RF hydroxychloroquine 200 mg tablet 1 tab PO QAM 0RF albuterol sulfate [ProAir HFA] 90 mcg/actuation HFA aerosol inhaler 2 puff PO Q4-6H PRN (Reason: Wheezing) 0RF cyclobenzaprine 5 mg tablet 1 tab PO TID PRN (Reason: muscle spasm) 0RF duloxetine 60 mg capsule,delayed release(DR/EC) 1 cap PO BID 0RF diclofenac sodium 1 % gel 4 g topical BID 0RF Eliquis 5 mg tablet 5 mg PO BID 0RF ursodiol 500 mg tablet 500 mg PO BID Qty: 90 1RF (DME) Monoject TB Safety Syringe 1 mL 28 gauge x 1/2 syringe See Rx Instructions .ROUTE .MEDSUPPLY Qty: 50 1RF Rx Instructions: As directed - use to inject Methorexate once per week folic acid 1 mg tablet 1 mg PO QAM Qty: 90 3RF Referrals: [facility] [Primary Care Provider] - 2 days
--- NOTE | 2021-10-22 12:58 | ECG_ITS ---
Test Reason : WEAKNESS Blood Pressure : / mmHG Vent. Rate : 058 BPM Atrial Rate : 058 BPM P-R Int : 176 ms QRS Dur : 102 ms QT Int : 414 ms P-R-T Axes : 059 -48 032 degrees QTc Int : 406 ms Sinus bradycardia Left anterior fascicular block Moderate voltage criteria for LVH, may be normal variant ( R in aVL , Remy product ) Septal infarct (cited on or before 25-AUG-2021) Abnormal ECG When compared with ECG of 08-SEP-2021 11:35, No significant change was found Referred By: Veena Pathak Electronically Signed By:OLGA KINGSTON MD
[2021-10-22 13:06] VITALS: BP 137/76; PULSE 69; RESP 18; TEMP 36.7; O2SAT 100; BMI 35.1
[2021-10-22 13:17] LABS: Glucose, Whole Blood 70 mg/dL (60-115)
[2021-10-22 13:18] LABS: Prothrombin Time Whole Bld POC 13.2 sec (11.1-13.5); ~PT, ~INR - Anti Coag Clinic 1.1 (0.9-1.1)
[2021-10-22 13:24] VITALS: BP 121/49; PULSE 61; RESP 20; O2SAT 97
[2021-10-22 14:11] LABS: MANUAL DIFF FLAG NO
[2021-10-22 14:14] LABS: Basophils Percent Auto 0.1 % (0-2); Eosinophils Percent Auto 0.5 % (0-4); Hematocrit 38.1 % (37.0-47.0); Hemoglobin 11.6 g/dl (12.0-16.0); Imm Gran Abs Auto 0.03 X10*3/uL (0.00-0.03); Imm Gran Pct Auto 0.4 % (0.0-0.4); Lymphocytes Absolute Auto 2.8 X10*3/uL (1.2-4.9); Lymphocytes Percent Auto 33.6 % (20-40); Mean Corpuscular HGB Conc 30.4 g/dl (31.0-35.0); Mean Corpuscular Hemoglobin 30.6 pg (27.0-33.0); Mean Corpuscular Volume 100.5 fL (80.0-98.0); Monocytes Absolute Auto 0.3 X10*3/uL (0.1-1.2); Monocytes Percent Auto 4.1 % (2-11); Neutrophils Absolute Auto 5.1 x10*3/uL (2.0-8.3); Neutrophils Percent Auto 61.3 % (45-73); Platelet Count 260 X10*3/uL (160-400); Red Blood Count 3.79 X10*6/uL (4.20-5.50); Red Cell Distribution Width 13.2 % (11.0-16.0); White Blood Count 8.3 X10*3/uL (4.8-10.8)
[2021-10-22 14:15] LABS: Venous Blood Gas Refer to POC result
[2021-10-22 14:17] LABS: VBG HCO3 21 mmol/L (22-26); VBG pCO2 34 mmHg; VBG pO2 44 mmHg
[2021-10-22 14:20] LABS: INTERNATIONAL NORM RATIO 0.9 (0.9-1.1); Prothrombin Time 10.6 SEC (9.9-13.0)
[2021-10-22 14:23] LABS: Partial Thromboplastin Time 28.4 SEC (24.1-38.0)
[2021-10-22 14:28] LABS: Ammonia 25 umol/L (13-55)
--- NOTE | 2021-10-22 14:28 | PHA.MEDREC ---
Pharmacy Consult ? Medication Reconciliation Pharmacy has completed the medication reconciliation. Patient uses [facility] from [facility]. Confirm with pharmacy medications in box. Spoke with patient to confirm medicaitons outside of med box. Patient reports she get an injection Q2W and methotrexate is Q14D. Megan Rothman, KelechiD
[2021-10-22] MEDS: methylPREDNISolone Sod Succ 125 MG/2 ML VIAL 60 MG IVPUSH (14:29)
[2021-10-22] MEDS: ondansetron HCL 4 MG/2 ML VIAL IVPUSH (14:29)
[2021-10-22 14:32] LABS: Lactic Acid 1.8 mmol/L (0.5-2.0)
[2021-10-22 14:37] LABS: Ethanol < 10 mg/dL
[2021-10-22 14:39] LABS: Alanine Aminotransferase 9 U/L (0-31); Alkaline Phosphatase 54 U/L (39-117); Anion Gap 13 (12-20); Aspartate Amino Transferase 11 U/L (5-31); Bilirubin Direct < 0.2 mg/dL (0.0-0.5); Bilirubin Total 0.3 mg/dL (0.0-1.0); Blood Urea Nitrogen 11 mg/dL (9-16); C Reactive Protein 1.06 mg/dL (< or = 0.50); Calcium 9.6 mg/dL (8.4-10.2); Carbon Dioxide 24 mmol/L (22-29); Chloride 106 mmol/L (96-108); Estimated Glomerular Filt Rate > 60; Glucose Random 76 mg/dL (60-115); Lipase 37 U/L (8-78); Magnesium 2.4 mg/dL (1.6-2.6); Potassium 3.9 mmol/L (3.3-5.1); Sodium 139 mmol/L (135-145); Total Protein 8.5 g/dL (6.5-8.0)
[2021-10-22] MEDS: oxyCODONE HCl Immed Release 5 MG TABLET 10 MG PO (14:39)
[2021-10-22 14:40] LABS: Troponin-I High Sensitivity 3.6 ng/L (<3.5-17.0)
[2021-10-22] MEDS: LORazepam 2 MG/ML VIAL 0.5 MG IVPUSH (14:40)
[2021-10-22 14:41] LABS: COVID-19 Test Negative (Negative)
[2021-10-22 14:54] LABS: Erythrocyte Sedimentation Rate 58 MM/HR (0-20)
== END 2021-10-22 15:48 | disposition home or self-care (01) ==
PROVIDERS: Emergency Provider Emergency Medicine
DX: M25.59 Pain in other specified joint (principal); M32.9 Systemic lupus erythematosus, unspecified; M79.661 Pain in right lower leg; M79.621 Pain in right upper arm; R53.81 Other malaise; F41.9 Anxiety disorder, unspecified; Z20.822 Contact with and (suspected) exposure to COVID-19; C81.90 Hodgkin lymphoma, unspecified, unspecified site; M06.9 Rheumatoid arthritis, unspecified; F17.200 Nicotine dependence, unspecified, uncomplicated; F12.90 Cannabis use, unspecified, uncomplicated; Z86.718 Personal history of other venous thrombosis and embolism; Z85.830 Personal history of malignant neoplasm of bone; Z85.29 Personal history of malignant neoplasm of other respiratory and intrathoracic organs; Z85.118 Personal history of other malignant neoplasm of bronchus and lung; Z92.21 Personal history of antineoplastic chemotherapy; Z72.89 Other problems related to lifestyle; Z59.2 Discord with neighbors, lodgers and landlord; Z79.01 Long term (current) use of anticoagulants
CPT/HCPCS: 70450; 71045; 80048; 80076; 82077; 82140; 82803; 82947; 83605; 83690; 83735; 84484; 85025; 85610; 85652; 85730; 86140; 87040; 87635; 93005; 96374; 96375; 99284; J2060; J2405; J2930

== ENCOUNTER 2021-10-29 08:21 | Outpatient (REF) | payer MEDICAID, SELFPAY ==
--- NOTE | ~2021-10-29 | US_ITS ---
EXAMINATION: US ABDOMEN COMPLETE CLINICAL INFORMATION: Chronic pain syndrome, right upper quadrant, history of cholecystectomy. COMPARISON: US retroperitoneal limited (renal only) 03/24/2021. Ultrasound abdomen complete 12/17/2020. CT abdomen and pelvis without contrast 10/29/2020. XR abdomen KUB 12/07/2019. X-ray abdomen 12/26/2011. TECHNIQUE: Real-time imaging of the abdominal viscera. FINDINGS: PANCREAS: Normal. ABDOMINAL AORTA: The visualized proximal and mid segments are normal in caliber. The distal segment is poorly visualized due to overlapping bowel gas. INFERIOR VENA CAVA: Visualized portions are normal. LIVER: There is hepatomegaly, with a longitudinal span of 21.1 cm. The liver contour is normal. There is diffuse increased liver parenchymal echotexture. No focal hepatic lesion. There is no intrahepatic biliary duct dilatation seen. GALLBLADDER: Surgically absent. COMMON BILE DUCT: Normal in caliber measuring 0.7 cm in diameter. RIGHT KIDNEY: Normal. No hydronephrosis. No renal calculi or focal parenchymal lesions. The kidney measures 12.5 cm in maximum dimension. LEFT KIDNEY: At the lower pole, a 1.2 cm in maximal diameter simple cyst is seen. No hydronephrosis or renal calculi. The kidney measures 11.4 cm in maximum dimension. SPLEEN: Normal. The spleen measures 8.3 cm in maximum dimension. FREE FLUID: None. US/US abdomen complete IMPRESSION: 1. There is hepatomegaly. 2. There is generalized increase in hepatic echotexture, consistent with fatty infiltration or hepatocellular disease. Please correlate clinically. No focal hepatic mass or intrahepatic biliary dilatation is seen. 3. A simple left renal cyst is of incidental note. 4. The gallbladder is surgically absent.
== END 2021-10-29 08:22 | disposition home or self-care (01) ==
LOC: HO.US 08:21
PROVIDERS: PCP General Practice; Visit Provider Internal Medicine Gastroenterology
DX: G89.4 Chronic pain syndrome (principal); R10.11 Right upper quadrant pain
CPT/HCPCS: 76700

== ENCOUNTER 2021-11-13 11:43 | Emergency (ER) | payer MEDICAID, SELFPAY ==
--- NOTE | ~2021-11-13 | XR_ITS ---
EXAMINATION: RIGHT HAND CLINICAL INFORMATION: Pain in the right hand COMPARISON: Right hand 02/01/2020 TECHNIQUE: 4 views of right hand FINDINGS: Soft tissue swelling of the proximal index finger. Subtle periarticular erosions at the radial side of the bone at the PIP joint of the index finger involving both the proximal shaft of the middle phalange and the distal shaft of the proximal phalange. Joint space itself however is normal as are the remainder the joint spaces throughout the hand and wrist. No fracture. No dislocation. Normal variant of negative ulnar variance. The ulna is shorter than the radius by about 3 mm. No impaction changes of the radial ulnar joint with the radiocarpal joint. XR/XR hand wrist RT IMPRESSION: There is soft tissue tissue swelling at the proximal index finger. Small subtle periarticular bone erosions at the PIP joint of the index finger. Findings concerning for localized inflammation or infection.
--- NOTE | ~2021-11-13 | US_ITS ---
EXAMINATION: US VENOUS WITH DOPPLER UPPER EXTREMITY, RIGHT CLINICAL INFORMATION: Pain in forearm/wrist. COMPARISON: None TECHNIQUE: Ultrasound of the upper extremity is performed using compression sonography and color and pulse Doppler flow with assessment of augmentation of flow. There is also imaging and Doppler assessment of the jugular and subclavian veins. Spectral analysis with color-flow imaging is performed. FINDINGS: Respiratory variation, normal compression, and augmented flow are noted throughout the upper extremity including the axillary, brachial, cubital, and radial and ulnar veins. There is normal flow in the internal jugular and subclavian veins. There is no visible deep or superficial thrombophlebitis. If the patient's symptoms progress, a followup ultrasound in 5 -7 days might be of value to exclude proximal propagation from a nonvisualized distal arm vein. US/US venous duplex UE RT IMPRESSION: No DVT demonstrated in the right upper extremity
[2021-11-13 13:25] VITALS: BP 123/78; PULSE 63; RESP 16; TEMP 35.9; O2SAT 99; BMI 29.0
[2021-11-13] MEDS: oxyCODONE HCl Immed Release 5 MG TABLET PO ×2 (15:22→17:23)
[2021-11-13 15:40] LABS: Basophils Percent Auto 0.3 % (0-2); Eosinophils Absolute Auto 0.1 X10*3/uL (0.0-0.4); Eosinophils Percent Auto 0.8 % (0-4); Hematocrit 35.7 % (37.0-47.0); Hemoglobin 11.3 g/dl (12.0-16.0); Imm Gran Abs Auto 0.01 X10*3/uL (0.00-0.03); Imm Gran Pct Auto 0.2 % (0.0-0.4); Lymphocytes Absolute Auto 2.8 X10*3/uL (1.2-4.9); Lymphocytes Percent Auto 43.1 % (20-40); MANUAL DIFF FLAG NO; Mean Corpuscular HGB Conc 31.7 g/dl (31.0-35.0); Mean Corpuscular Hemoglobin 30.2 pg (27.0-33.0); Mean Corpuscular Volume 95.5 fL (80.0-98.0); Mean Platelet Volume 9.8 fL (9.4-12.3); Monocytes Absolute Auto 0.3 X10*3/uL (0.1-1.2); Neutrophils Absolute Auto 3.3 x10*3/uL (2.0-8.3); Neutrophils Percent Auto 50.6 % (45-73); Platelet Count 254 X10*3/uL (160-400); Red Blood Count 3.74 X10*6/uL (4.20-5.50); Red Cell Distribution Width 13.7 % (11.0-16.0); White Blood Count 6.4 X10*3/uL (4.8-10.8)
[2021-11-13 15:59] LABS: Alanine Aminotransferase 21 U/L (0-31); Alkaline Phosphatase 75 U/L (39-117); Anion Gap 13 (12-20); Aspartate Amino Transferase 21 U/L (5-31); Bilirubin Total 0.4 mg/dL (0.0-1.0); Blood Urea Nitrogen 10 mg/dL (9-16); C Reactive Protein 3.65 mg/dL (< or = 0.50); Calcium 9.3 mg/dL (8.4-10.2); Carbon Dioxide 23 mmol/L (22-29); Chloride 105 mmol/L (96-108); Creatinine Clr Calc Pharmacy 99.4; Estimated Glomerular Filt Rate > 60; Glucose Random 79 mg/dL (60-115); Potassium 3.9 mmol/L (3.3-5.1); Sodium 137 mmol/L (135-145); Total Protein 8.6 g/dL (6.5-8.0)
[2021-11-13 16:31] LABS: Erythrocyte Sedimentation Rate 89 MM/HR (0-20)
--- NOTE | 2021-11-13 16:47 | ED_ITS ---
HPI - Extremity Problem General Chief complaint: Extremity Problem Stated complaint: R hand/arm pain Time Seen by Provider: 11/13/21 13:32 Source: patient Mode of arrival: ambulatory Limitations: language barrier History of Present Illness HPI Narrative: 46-year-old British-speaking patient presents for right hand pain for last 5 days. Patient has history of rheumatoid arthritis, lupus, and DVT in her right upper extremity. Patient saw rheumatology 2 weeks ago. Patient reports a bump around her wrist that is swollen and red. It is very painful. No fevers, no chest pain, no shortness of breath. Patient has had no trauma to her right hand. Related Data Home Medications Medication Instructions Recorded Confirmed benztropine 0.5 mg tablet 0.5 mg PO DAILY 05/01/20 10/22/21 risperidone 1 mg tablet 1 mg PO BEDTIME 05/01/20 10/22/21 alprazolam 2 mg tablet 2 mg PO BEDTIME PRN 09/17/21 10/22/21 albuterol sulfate 90 mcg/actuation 2 puff PO Q4-6H PRN 10/02/21 10/22/21 aerosol inhaler (ProAir HFA) aspirin 81 mg tablet,delayed 1 tab PO QAM 10/02/21 10/22/21 release cyclobenzaprine 5 mg tablet 1 tab PO TID PRN 10/02/21 10/22/21 diclofenac sodium 1 % topical gel 4 g TOPICAL BID 10/02/21 10/22/21 duloxetine 60 mg capsule,delayed 1 cap PO BID 10/02/21 10/22/21 release famotidine 20 mg tablet 1 tab PO BID@1200,2100 10/02/21 10/22/21 ferrous sulfate 325 mg (65 mg 1 tab PO QAM 10/02/21 10/22/21 iron) tablet (FeroSul) hydroxychloroquine 200 mg tablet 1 tab PO QAM 10/02/21 10/22/21 methotrexate sodium 2.5 mg tablet 4 tab PO Q14D 10/02/21 10/22/21 pantoprazole 40 mg tablet,delayed 1 tab PO DAILY 10/02/21 10/22/21 release apixaban 5 mg tablet (Eliquis) 5 mg PO BID 10/07/21 10/22/21 abatacept 125 mg/mL subcutaneous 125 mg SUBCUT Q2W 10/22/21 10/22/21 auto-injector ([email or web address] ClickJect) docusate sodium 100 mg tablet 100 mg PO BID PRN 10/22/21 10/22/21 gabapentin 400 mg capsule 400 mg PO TID 10/22/21 10/22/21 gabapentin 400 mg capsule 400 mg PO TID PRN 10/22/21 10/22/21 oxycodone-acetaminophen 5 mg-325 1 tab PO Q8H PRN 10/22/21 10/22/21 mg tablet (Percocet) prednisone 10 mg tablet 20 mg PO DAILY 10/22/21 10/22/21 risperidone 1 mg tablet 0.5 mg PO DAILY PRN 10/22/21 10/22/21 trazodone 150 mg tablet 1 tab PO BEDTIME PRN 10/22/21 10/22/21 Previous Rx's Medication Instructions Recorded adhesive bandage 1 #20 ea 05/21/20 folic acid 1 mg tablet 1 mg PO QAM #90 tab 02/11/21 syringe with needle, safety 1 mL #50 ea 02/11/21 28 gauge x 1/2 (Monoject TB Safety Syringe) baclofen 5 mg tablet 5 mg PO TID PRN #10 tab 09/08/21 ursodiol 500 mg tablet 500 mg PO BID #90 tab 10/08/21 oxycodone 5 mg tablet 5 mg PO TID PRN #12 tab 10/22/21 oxycodone 5 mg capsule 5 mg PO Q8H PRN #9 cap 11/13/21 prednisone 20 mg tablet 40 mg PO DAILY 10 Days #20 tab 11/13/21 Allergies Allergy/AdvReac Type Severity Reaction Status Date / Time almond [ALMONDS] Allergy Severe ANAPHYLAXIS Verified 10/05/21 09:41 adhesive tape [ADHESIVE TAPE] Allergy Intermediate RASH Verified 10/05/21 09:41 morphine [MORPHINE] Allergy Intermediate GI UPSET, Verified 10/05/21 09:41 difficulty breathing tramadol [TRAMADOL] AdvReac Unknown NAUSEA & Verified 10/05/21 09:41 VOMITING Review of Systems Constitutional: Constitutional: Denies body ache(s), Denies chills, Denies fatigue, Denies fever(s), Denies headache(s), Denies malaise and Denies weakness Eyes: Eyes: Denies diplopia ENT: Denies vertigo, Denies dizziness, Denies headache(s) and Denies throat swelling Cardiovascular: Cardiovascular: Denies chest pain, Denies syncope, Denies leg edema, Denies lightheadedness, Denies Loss of Consciousness, Denies palpitations and Denies dyspnea Respiratory: Respiratory: Denies chest congestion, Denies cough and Denies dyspnea Gastrointestinal: Gastrointestinal: Denies abdominal pain, Denies hematochezia, Denies constipation, Denies diarrhea and Denies vomiting Musculoskeletal: Musculoskeletal: Reports arthralgias and Reports joint swelling Comments: Right hand pain Integumentary/Breasts: Skin/Breast: Reports erythema (Right hand) Neurologic: Denies confusion, Denies vertigo, Denies dizziness, Denies syncope, Denies headache(s) and Denies weakness Psychiatric: Psychiatric: Denies anxiety, Denies confusion and Denies depression Endocrine: Endocrine: Denies fatigue and Denies palpitations Allergic/Immunologic: Allergic/Immunologic: Denies throat swelling PMFSH Past Medical History Medical History Acute arthritis Bleeding hemorrhoid Bone cancer Cancer of heart Chronic GERD De Quervain's disease (tenosynovitis) Degeneration of intervertebral disc at C4-C5 level Degeneration, intervertebral disc, lumbar Depressive disorder Esophageal dysphagia Fibromyalgia Gallstones History of chemotherapy History of chemotherapy Hodgkin disease Lung cancer Nocturia Osteoarthritis of spine with radiculopathy, lumbar region Rheumatoid arthritis involving multiple sites Seropositive rheumatoid arthritis Stress incontinence in female Systemic lupus erythematosus Urgency-frequency syndrome Vitamin D deficiency Surgical History H/O tubal ligation History of esophagogastroduodenoscopy (EGD) History of lymph node dissection of left axilla History of repair of inguinal hernia Hx laparoscopic cholecystectomy Hx of colonoscopy Hx of endoscopy Social History Social History Alcohol intake: current Alcohol intake frequency: does not drink Patient Tobacco Use Status: Current everyday Tobacco user Tobacco use type: Cigarette Cigarettes Per Day: 3 Substance Use Type: Marijuana Advance Directives: Yes Advance Directives on File: Yes Advance Directives Date on File: 09/23/20 Current occupational status: disabled 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 Physical Exam Vital Signs: Vital Signs: Last Vital Signs Temp 96.7 F L 11/13/21 13:25 Pulse 63 11/13/21 13:25 Resp 16 11/13/21 13:25 BP 123/78 11/13/21 13:25 Pulse Ox 99 11/13/21 13:25 BMI result Body Mass Index 29.0 Const: General: No confusion Nutritional Appearance: well nourished Orientation/consciousness: No confusion Limitations: no limitations Eyes: Conjunctivae: conjunctivae normal Pupils: Equal, round and reactive pupils present EOM: EOMs intact bilaterally Neck: Neck: Yes full ROM, Yes no lymphadenopathy and Yes supple Resp: Effort & Inspection: normal respiratory effort and able to speak in complete sentences Auscultation: clear to auscultation bilaterally, no crackles, no rales, no rhonchi and no wheezes Cardio: Rate: regular rate Rhythm: regular rhythm Heart sounds: S1 normal heart sound present and S2 normal heart sound present GI: Inspection: Yes normal to inspection Palpation (GI): Soft to palpation, nontender, no guarding and not rigid Percussion: Yes normal to percussion Auscultation: normal bowel sounds Skin: General skin exam: no rashes or lesions noted Neuro: General: No confusion Cranial nerves: Yes Equal, round and reactive pupils present Extrem: Right upper extremity: normal capillary refill, wrist Details: tenderness, swelling, abnormal ROM, warmth, normal vascular exam and radial pulse present; Negative for no ecchymosis and no crepitus and Extremity exam: right hand Details: abnormal to inspection, normal capillary refill, neuromotor exam normal (Pain with range of motion fingers), neurosensory exam normal, tenderness and vascular exam Details: radial pulse present and normal capillary refill Psych: Appearance: grossly normal Affect: normal affect Attitude: cooperative Thought process: Normal thought process present Course Course Course Narrative: 46-year-old female with multiple comorbidities including rheumatoid arthritis, lupus, and DVT of her right upper extremity presents with right wrist and hand pain for last 3-5 days. No trauma. On exam, patient has stable vitals, intact right upper extremity pulses and sensation. Range of motion is limited due to swollen right hand. Right hand is very tender, fingers are swollen. Mildly erythematous and red. Labs show elevated inflammatory markers, ESR is 89, CRP 3.6. Ultrasound shows no DVT, x- ray shows bone erosions at the PIP joint and tissue swelling. DR Okeefe came to evaluate patient, and agreed that this looks like a rheumatoid arthritis flare. Started patient on prednisone, have them follow-up with rheumatology. FINDINGS: Soft tissue swelling of the proximal index finger. Subtle periarticular erosions at the radial side of the bone at the PIP joint of the index finger involving both the proximal shaft of the middle phalange and the distal shaft of the proximal phalange. Joint space itself however is normal as are the remainder the joint spaces throughout the hand and wrist. No fracture. No dislocation. Normal variant of negative ulnar variance. The ulna is shorter than the radius by about 3 mm. No impaction changes of the radial ulnar joint with the radiocarpal joint.? XR/XR hand wrist RT IMPRESSION: There is soft tissue tissue swelling at the proximal index finger. Small subtle periarticular bone erosions at the PIP joint of the index finger. Findings concerning for localized inflammation or infection. MDM - Extremity (Nontraumatic) Lab Data Result diagrams: 11/13/21 15:30 11/13/21 15:30 Labs: Lab Results 11/13/21 11/13/21 11/13/21 Range/Units 15:30 15:30 15:30 WBC 6.4 (4.8-10.8) X10*3/uL RBC 3.74 L (4.20-5.50) X10*6/uL Hgb 11.3 L (12.0-16.0) g/dl Hct 35.7 L (37.0-47.0) % MCV 95.5 (80.0-98.0) fL MCH 30.2 (27.0-33.0) pg MCHC 31.7 (31.0-35.0) g/dl RDW 13.7 (11.0-16.0) % Plt Count 254 (160-400) X10*3/uL MPV 9.8 (9.4-12.3) fL Immature Gran % (Auto) 0.2 (0.0-0.4) % Neut % (Auto) 50.6 (45-73) % Lymph % (Auto) 43.1 H (20-40) % [place] % (Auto) 5.0 (2-11) % Eos % (Auto) 0.8 (0-4) % Baso % (Auto) 0.3 (0-2) % Lymph # (Auto) 2.8 (1.2-4.9) X10*3/uL [place] # (Auto) 0.3 (0.1-1.2) X10*3/uL Eos # (Auto) 0.1 (0.0-0.4) X10*3/uL Baso # (Auto) 0.0 (0.0-0.2) X10*3/uL Abs Immat Gran (auto) 0.01 (0.00-0.03) X10*3/uL Absolute Neuts (auto) 3.3 (2.0-8.3) x10*3/uL Absolute Nucleated RBC 0.000 (0.0-0.012) X10*3/uL Nucleated RBC % (auto) 0.0 (0.0-0.2) /100WBC ESR 89 H (0-20) MM/HR Sodium 137 (135-145) mmol/L Potassium 3.9 (3.3-5.1) mmol/L Chloride 105 (96-108) mmol/L Carbon Dioxide 23 (22-29) mmol/L Anion Gap 13 (12-20) BUN 10 (9-16) mg/dL Creatinine 0.77 (0.5-1.4) mg/dL Estim Creat Clear Calc 99.4 Estimated GFR > 60 Random Glucose 79 (60-115) mg/dL Calcium 9.3 (8.4-10.2) mg/dL Total Bilirubin 0.4 (0.0-1.0) mg/dL AST 21 D (5-31) U/L ALT 21 (0-31) U/L Alkaline Phosphatase 75 D (39-117) U/L C-Reactive Protein 3.65 H (< or = 0.50) mg/dL Total Protein 8.6 H (6.5-8.0) g/dL Albumin 4.0 (3.5-5.0) g/dL Discharge Plan Discharge Clinical Impression: Rheumatoid arthritis flare Patient Disposition: Home, Self-Care Instructions: Rheumatoid Arthritis (ED) Additional Instructions: Please call your surgery center administrator for follow-up appointment. Please take prednisone and oxycodone as prescribed. Please return to emergency room for any new or concerning symptoms. Llame a kessler reumat?logo para moira jose david de seguimiento. [place] prednisona y oxicodona seg?n lo prescrito. Regrese a la lianna de emergencias por cualquier s?ntoma nuevo o preocupante. Prescriptions: New prednisone 20 mg tablet 40 mg PO DAILY 10 Days Qty: 20 0RF oxycodone 5 mg capsule 5 mg PO Q8H PRN (Reason: pain) Qty: 9 0RF No Action (DME) adhesive bandage 1 bandage See Rx Instructions .ROUTE .MEDSUPPLY Qty: 20 5RF Rx Instructions: Use after Methotrexate injection benztropine 0.5 mg Tablet 0.5 mg PO DAILY 0RF risperidone 1 mg Tablet 1 mg PO BEDTIME 0RF alprazolam 2 mg Tablet 2 mg PO BEDTIME PRN (Reason: INSOMINIA, ANXITEY) 0RF baclofen 5 mg tablet 5 mg PO TID PRN (Reason: Muscle spasms) Qty: 10 0RF gabapentin 400 mg capsule 400 mg PO TID PRN (Reason: Pain) 0RF gabapentin 400 mg capsule 400 mg PO TID 0RF trazodone 150 mg tablet 1 tab PO BEDTIME PRN (Reason: Sleep) 0RF risperidone 1 mg tablet 0.5 mg PO DAILY PRN (Reason: Agitation) 0RF docusate sodium 100 mg Tablet 100 mg PO BID PRN (Reason: Constipation) 0RF oxycodone-acetaminophen [Percocet] 5-325 mg tablet 1 tab PO Q8H PRN (Reason: pain) 0RF prednisone 10 mg tablet 20 mg PO DAILY 0RF [place] Click[employer]ect 125 mg/mL auto-injector 125 mg subcut Q2W 0RF oxycodone 5 mg tablet 5 mg PO TID PRN (Reason: pain) Qty: 12 0RF Rx Instructions: short course due to lupus exacerbation aspirin 81 mg tablet,delayed release (DR/EC) 1 tab PO QAM 0RF famotidine 20 mg tablet 1 tab PO BID@1200,2100 0RF methotrexate sodium 2.5 mg tablet 4 tab PO Q14D 0RF pantoprazole 40 mg tablet,delayed release (DR/EC) 1 tab PO DAILY 0RF ferrous sulfate [FeroSul] 325 mg (65 mg iron) tablet 1 tab PO QAM 0RF hydroxychloroquine 200 mg tablet 1 tab PO QAM 0RF albuterol sulfate [ProAir HFA] 90 mcg/actuation HFA aerosol inhaler 2 puff PO Q4-6H PRN (Reason: Wheezing) 0RF cyclobenzaprine 5 mg tablet 1 tab PO TID PRN (Reason: muscle spasm) 0RF duloxetine 60 mg capsule,delayed release(DR/EC) 1 cap PO BID 0RF diclofenac sodium 1 % gel 4 g topical BID 0RF Eliquis 5 mg tablet 5 mg PO BID 0RF ursodiol 500 mg tablet 500 mg PO BID Qty: 90 1RF (DME) Monoject TB Safety Syringe 1 mL 28 gauge x 1/2 syringe See Rx Instructions .ROUTE .MEDSUPPLY Qty: 50 1RF Rx Instructions: As directed - use to inject Methorexate once per week folic acid 1 mg tablet 1 mg PO QAM Qty: 90 3RF Interventions: ED Discharge Assessment Last Done: 11/13/21 17:48 Discharge Date/Time: 11/13/21 17:51 Print Language: British
== END 2021-11-13 17:51 | disposition home or self-care (01) ==
PROVIDERS: Physician Assistant; Emergency Provider Emergency Medicine
DX: M06.9 Rheumatoid arthritis, unspecified (principal); R60.0 Localized edema; M25.531 Pain in right wrist; F17.210 Nicotine dependence, cigarettes, uncomplicated; Z71.6 Tobacco abuse counseling; Z86.718 Personal history of other venous thrombosis and embolism; Z79.01 Long term (current) use of anticoagulants; Z79.899 Other long term (current) drug therapy
CPT/HCPCS: 36415; 73110; 73130; 80053; 85025; 85652; 86140; 93971; 99284

== ENCOUNTER → 2021-11-18 13:17 | Outpatient (BNVA) | payer MEDICAID, SELFPAY | PROVIDERS: Visit Provider Orthopaedic Surgery | DX: M65.4 Radial styloid tenosynovitis [de Quervain] (principal); M79.89 Other specified soft tissue disorders; M65.80 Other synovitis and tenosynovitis, unspecified site | CPT/HCPCS: 20550; 99212; J1100 ==

== ENCOUNTER 2021-12-18 13:58 | Emergency (ER) | payer MEDICAID, SELFPAY ==
--- NOTE | ~2021-12-18 | US_ITS ---
EXAMINATION: US VENOUS ULTRASOUND WITH DOPPLER LOWER EXTREMITY, RIGHT CLINICAL INFORMATION: Right leg edema. COMPARISON: Right lower extremity venous ultrasound dated 11/29/2020. TECHNIQUE: Ultrasound of the deep veins is performed from the hip to the calf with compression sonography and color and pulse Doppler assessment. Spectral analysis with color-flow imaging is performed. FINDINGS: There is normal venous compression and respiratory variation and augmented flow. The visualized common femoral vein, superficial femoral vein, profunda femoral vein, popliteal vein, and the trifurcation region shows no evidence of deep venous thrombosis. There is no significant popliteal fossa cyst. If the patient's symptoms persist, followup ultrasound in 5 days 7 days might be of value to exclude proximal propagation from a non-visualized calf vein. US/US venous duplex LE RT IMPRESSION: No DVT demonstrated in the right lower extremity.
--- NOTE | ~2021-12-18 | CT_ITS ---
EXAMINATION: CT HEAD WITHOUT CONTRAST CLINICAL INFORMATION: Right-sided weakness COMPARISON: Portions of a previous study 10/22/21 TECHNIQUE: Multidetector CT examination of the head is performed without contrast. This CT examination was performed using dose optimization techniques as appropriate, variously including the following: *Automated exposure control *Adjustment of mA and/or kV according to patient size (this includes techniques or standardized protocols for targeted exams where dose is matched to indication/reason for exam; i.e. extremities or head) *Use of iterative reconstruction technique DLP: 598 mGy-cm FINDINGS: There is no evidence of a recent intracranial hemorrhage or extra-axial collection. The midline structures are nondisplaced. The ventricles, cisterns, and sulci are within normal limits. There is no evidence of an intra-axial mass. There are no suspicious focal areas of abnormal brain attenuation. The lozano-white interface is within normal limits. There is no evidence of acute territorial infarct. The paranasal sinuses and mastoids are within normal limits. CT/CT head/brain wo con IMPRESSION: 1. There is no evidence of a recent intracranial hemorrhage. 2. No acute infarct. 3. No suspicious interval change.
--- NOTE | ~2021-12-18 | US_ITS ---
EXAMINATION: US VENOUS WITH DOPPLER UPPER EXTREMITY, RIGHT CLINICAL INFORMATION: Swelling. COMPARISON: Multiple priors, most recent right upper extremity ultrasound dated 11/13/2021. TECHNIQUE: Ultrasound of the upper extremity is performed using compression sonography and color and pulse Doppler flow with assessment of augmentation of flow. There is also imaging and Doppler assessment of the jugular and subclavian veins. Spectral analysis with color-flow imaging is performed. FINDINGS: There is heterogeneous echogenicity with noncompressibility of the right internal jugular and right subclavian veins. There is partial Doppler detectable vascular flow in these areas. The right axillary, brachial, basilic, cephalic, radial, and ulnar veins are patent with normal Doppler detectable vascular flow. US/US venous duplex UE RT IMPRESSION: Findings consistent with deep vein thrombosis within the right internal jugular and subclavian veins. This critical result was discussed with Dr. Louis at 8:20 PM on 12/18/2021 and it was ascertained that the content and urgency of the report was understood at the time of direct communication.
[2021-12-18 14:01] VITALS: BP 146/77; PULSE 84; RESP 16; TEMP 36.1; O2SAT 98; BMI 29.2
[2021-12-18 14:20] LABS: MANUAL DIFF FLAG NO
[2021-12-18 14:22] LABS: Basophils Percent Auto 0.3 % (0-2); Eosinophils Percent Auto 0.6 % (0-4); Hematocrit 36.4 % (37.0-47.0); Hemoglobin 11.8 g/dl (12.0-16.0); Imm Gran Abs Auto 0.03 X10*3/uL (0.00-0.03); Imm Gran Pct Auto 0.4 % (0.0-0.4); Lymphocytes Absolute Auto 2.6 X10*3/uL (1.2-4.9); Lymphocytes Percent Auto 38.3 % (20-40); Mean Corpuscular HGB Conc 32.4 g/dl (31.0-35.0); Mean Corpuscular Hemoglobin 30.3 pg (27.0-33.0); Mean Corpuscular Volume 93.3 fL (80.0-98.0); Mean Platelet Volume 9.6 fL (9.4-12.3); Monocytes Absolute Auto 0.4 X10*3/uL (0.1-1.2); Monocytes Percent Auto 6.1 % (2-11); Neutrophils Absolute Auto 3.7 x10*3/uL (2.0-8.3); Neutrophils Percent Auto 54.3 % (45-73); Platelet Count 280 X10*3/uL (160-400); Red Cell Distribution Width 14.1 % (11.0-16.0); White Blood Count 6.8 X10*3/uL (4.8-10.8)
[2021-12-18 14:37] LABS: Anion Gap 12 (12-20); Blood Urea Nitrogen 11 mg/dL (9-16); Calcium 9.5 mg/dL (8.4-10.2); Carbon Dioxide 25 mmol/L (22-29); Chloride 105 mmol/L (96-108); Creatinine Clr Calc Pharmacy 91.5; Estimated Glomerular Filt Rate > 60; Glucose Random 96 mg/dL (60-115); Potassium 4.1 mmol/L (3.3-5.1); Sodium 138 mmol/L (135-145)
--- NOTE | 2021-12-18 17:48 | ED.GENADULT ---
HPI - General Adult General Chief complaint: General Medical Stated complaint: hands and facial swelling pain legs and back Time Seen by Provider: 12/18/21 17:26 Source: patient Mode of arrival: ambulatory Limitations: no limitations History of Present Illness HPI narrative: 46-year-old female presents with multiple complaints. States that she has pain to the right side of her body from the right side of her face to her right leg with right hand pain and swelling. States that she has had right-sided pain for several months however has only had right-sided swelling for approximately 3 days. She also does report an episode of cyanosis. Has a prior history of lupus, chronic pain syndrome, rheumatism, fibromyalgia, and history of DVT. Onset (ago): week(s) (3) Location: head, neck, right, upper extremity and lower extremity Severity: moderate Severity scale (1-10): 7 Quality: aching Pain Consistency: constant Relieving factors: none Exacerbating factors: movement Associated symptoms: shortness of breath Treatments prior to arrival: none Related Data Home Medications Medication Instructions Recorded Confirmed benztropine 0.5 mg tablet 0.5 mg PO DAILY 05/01/20 10/22/21 risperidone 1 mg tablet 1 mg PO BEDTIME 05/01/20 10/22/21 alprazolam 2 mg tablet 2 mg PO BEDTIME PRN 09/17/21 10/22/21 albuterol sulfate 90 mcg/actuation 2 puff PO Q4-6H PRN 10/02/21 10/22/21 aerosol inhaler (ProAir HFA) aspirin 81 mg tablet,delayed 1 tab PO QAM 10/02/21 10/22/21 release cyclobenzaprine 5 mg tablet 1 tab PO TID PRN 10/02/21 10/22/21 diclofenac sodium 1 % topical gel 4 g TOPICAL BID 10/02/21 10/22/21 duloxetine 60 mg capsule,delayed 1 cap PO BID 10/02/21 10/22/21 release famotidine 20 mg tablet 1 tab PO BID@1200,2100 10/02/21 10/22/21 ferrous sulfate 325 mg (65 mg 1 tab PO QAM 10/02/21 10/22/21 iron) tablet (FeroSul) hydroxychloroquine 200 mg tablet 1 tab PO QAM 10/02/21 10/22/21 methotrexate sodium 2.5 mg tablet 4 tab PO Q14D 10/02/21 10/22/21 apixaban 5 mg tablet (Eliquis) 5 mg PO BID 10/07/21 10/22/21 abatacept 125 mg/mL subcutaneous 125 mg SUBCUT Q2W 10/22/21 10/22/21 auto-injector (Orencia ClickJect) docusate sodium 100 mg tablet 100 mg PO BID PRN 10/22/21 10/22/21 gabapentin 400 mg capsule 400 mg PO TID 10/22/21 10/22/21 gabapentin 400 mg capsule 400 mg PO TID PRN 10/22/21 10/22/21 oxycodone-acetaminophen 5 mg-325 1 tab PO Q8H PRN 10/22/21 10/22/21 mg tablet (Percocet) prednisone 10 mg tablet 20 mg PO DAILY 10/22/21 10/22/21 risperidone 1 mg tablet 0.5 mg PO DAILY PRN 10/22/21 10/22/21 trazodone 150 mg tablet 1 tab PO BEDTIME PRN 10/22/21 10/22/21 Previous Rx's Medication Instructions Recorded adhesive bandage 1 #20 ea 05/21/20 folic acid 1 mg tablet 1 mg PO QAM #90 tab 02/11/21 syringe with needle, safety 1 mL #50 ea 02/11/21 28 gauge x 1/2 (Monoject TB Safety Syringe) baclofen 5 mg tablet 5 mg PO TID PRN #10 tab 09/08/21 ursodiol 500 mg tablet 500 mg PO BID #90 tab 10/08/21 oxycodone 5 mg tablet 5 mg PO TID PRN #12 tab 10/22/21 oxycodone 5 mg capsule 5 mg PO Q8H PRN #9 cap 11/13/21 prednisone 20 mg tablet 40 mg PO DAILY 10 Days #20 tab 11/13/21 pantoprazole 40 mg tablet,delayed 40 mg PO DAILY #90 tab 12/07/21 release apixaban 5 mg (74 tabs) tablets in 5 mg PO BID #74 ea 12/18/21 a dose pack (Eliquis DVT-PE Treat 30D Start) Allergies Allergy/AdvReac Type Severity Reaction Status Date / Time almond [ALMONDS] Allergy Severe ANAPHYLAXIS Verified 11/18/21 14:21 adhesive tape [ADHESIVE TAPE] Allergy Intermediate RASH Verified 11/18/21 14:21 morphine [MORPHINE] Allergy Intermediate GI UPSET, Verified 11/18/21 14:21 difficulty breathing tramadol [TRAMADOL] AdvReac Unknown NAUSEA & Verified 11/18/21 14:21 VOMITING Review of Systems Review of Systems: Constitutional: No Fever, No Chills ENT/Mouth: No Ear Pain, No Hoarseness, No sore throat Eyes: No Eye Pain, No Swelling, No Redness, No Foreign Body Cardiovascular: No Chest Pain, No SOB Respiratory: No Cough, positive Dyspnea Gastrointestinal: No Nausea, No Vomiting, No Diarrhea, No abdominal Pain Genitourinary: No Dysuria, No Hematuria Musculoskeletal: positive right arm and right leg pain, No Myalgias, positive right arm Swelling Skin: No Skin lacerations, No rash Neuro: No Weakness, No Numbness, No Paresthesias, No Loss of Consciousness, No Dizziness, No Headache Psych: No Anxiety/Panic, No Depression Heme/Lymph: no easy bruising, no Lymphadenopathy Endocrine: No Polyuria, No Polydipsia Yes all other systems are reviewed and are negative [facility] Past Medical History Attestation statement: The following information was validated with the patient. Source: old records reviewed Medical History Acute arthritis Bleeding hemorrhoid Bone cancer Cancer of heart Chronic GERD De Quervain's disease (tenosynovitis) Degeneration of intervertebral disc at C4-C5 level Degeneration, intervertebral disc, lumbar Depressive disorder Esophageal dysphagia Fibromyalgia Gallstones History of chemotherapy History of chemotherapy Hodgkin disease Lung cancer Nocturia Osteoarthritis of spine with radiculopathy, lumbar region Rheumatoid arthritis involving multiple sites Seropositive rheumatoid arthritis Stress incontinence in female Systemic lupus erythematosus Urgency-frequency syndrome Vitamin D deficiency Surgical History H/O tubal ligation History of esophagogastroduodenoscopy (EGD) History of lymph node dissection of left axilla History of repair of inguinal hernia Hx laparoscopic cholecystectomy Hx of colonoscopy Hx of endoscopy Social History Social History Alcohol intake: current Alcohol intake frequency: does not drink Patient Tobacco Use Status: Current everyday Tobacco user Tobacco use type: Cigarette Cigarettes Per Day: 3 Substance Use Type: Marijuana Advance Directives: Yes Advance Directives on File: Yes Advance Directives Date on File: 09/23/20 Current occupational status: disabled 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 Oriented X3. Mild distress. Eyes: Pupils equal, round and reactive to light. EOMI. Sclera nonicteric. ENT: Pharynx normal. Moist mucous membranes. Neck: Normal inspection. Neck supple. CVS: Normal heart rate and rhythm. Pulses normal. Respiratory: No respiratory distress. Breath sounds normal. Abdomen: Soft and nontender. Skin: Skin warm and dry. Normal skin color. Normal skin turgor. Extremities: Right arm swelling, tender to palpation throughout the entire extremity. Neuro: No motor deficit. No sensory deficit. Cranial nerves 2-12 intact. NIH Stroke Scale Internal: Initial- Upon Arrival Level of Consciousness: Alert Level of Consciousness Questions: Answers both questions correctly Level of Consciousness Commands: Performs both tasks correctly Best Gaze: Normal Visual: No visual loss Facial Palsy: Normal Motor Arm (Right): No drift Motor Arm (Left): No drift Motor Leg (Right): No drift Motor Leg (Left): No drift Limb Ataxia: Absent Sensory: Normal Best Language: No aphasia Dysarthia: Normal Extinction and Inattention: No abnormality Score: 0 Course Course Course Narrative: 46-year-old female presents with multiple complaints. Has a significant history of lupus, rheumatism, fibromyalgia, history of DVT in the past on immunosuppressants and chemotherapeutics. Patient does report weeks of extremity pain, but only 2 days of swelling. Will order duplex and CT of head. Wells PE score 0. 20:21 critical results reported by Radiology of DVT to the internal jugular of the right side. Patient reports to be in 10/10 pain, stated that she did not take anything for pain today, I did offer her Tylenol and Motrin, stated that she did not want those medications because they were not effective. She did take them yesterday and stated that she had no relief. Upon investigation of her medication history, she does receive 90 tablets of oxycodone acetaminophen on a monthly basis. Also takes baclofen. Medication history also states that she takes Eliquis, which she did confirm on initial assessment. Upon further investigation, she reports to have stopped taking this medication approximately 5 months ago and that the medication was discontinued by Dr. Zhang. 22:[address] Zhang, plan is to restart Eliquis and have her follow-up with heme Onc. Detailed discussion with patient regarding plan of care, Patient verbalized understanding of and agrees to plan of care to discharge home. Verbalized understanding of signs and symptoms indicating need for emergent intervention. staff interpreter utilized for all correspondence. Google translate utilized for discharge instructions. Medical Decision Making Differential Diagnosis Differential Diagnosis: DVT, cellulitis, edema, COVID, influenza Medical Records Medical records reviewed: Yes I reviewed the patient's medical records. Lab Data Lab results reviewed: Yes I reviewed the patient's lab results. Result diagrams: 12/18/21 14:13 12/18/21 14:13 Labs: Lab Results 12/18/21 12/18/21 12/18/21 Range/Units 14:13 14:13 14:13 WBC 6.8 (4.8-10.8) X10*3/uL RBC 3.90 L (4.20-5.50) X10*6/uL Hgb 11.8 L (12.0-16.0) g/dl Hct 36.4 L (37.0-47.0) % MCV 93.3 (80.0-98.0) fL MCH 30.3 (27.0-33.0) pg MCHC 32.4 (31.0-35.0) g/dl RDW 14.1 (11.0-16.0) % Plt Count 280 (160-400) X10*3/uL MPV 9.6 (9.4-12.3) fL Immature Gran % (Auto) 0.4 (0.0-0.4) % Neut % (Auto) 54.3 (45-73) % Lymph % (Auto) 38.3 (20-40) % [place] % (Auto) 6.1 (2-11) % Eos % (Auto) 0.6 (0-4) % Baso % (Auto) 0.3 (0-2) % Lymph # (Auto) 2.6 (1.2-4.9) X10*3/uL [place] # (Auto) 0.4 (0.1-1.2) X10*3/uL Eos # (Auto) 0.0 (0.0-0.4) X10*3/uL Baso # (Auto) 0.0 (0.0-0.2) X10*3/uL Abs Immat Gran (auto) 0.03 (0.00-0.03) X10*3/uL Absolute Neuts (auto) 3.7 (2.0-8.3) x10*3/uL Absolute Nucleated RBC 0.000 (0.0-0.012) X10*3/uL Nucleated RBC % (auto) 0.0 (0.0-0.2) /100WBC Sodium 138 (135-145) mmol/L Potassium 4.1 (3.3-5.1) mmol/L Chloride 105 (96-108) mmol/L Carbon Dioxide 25 (22-29) mmol/L Anion Gap 12 (12-20) BUN 11 (9-16) mg/dL Creatinine 0.78 (0.5-1.4) mg/dL Estim Creat Clear Calc 91.5 Estimated GFR > 60 Random Glucose 96 (60-115) mg/dL Calcium 9.5 (8.4-10.2) mg/dL Magnesium 2.2 (1.6-2.6) mg/dL Troponin I High Sens < 3.5 (<3.5-17.0) ng/L B-Natriuretic Peptide (<100) pg/mL Urine Color Urine Appearance Urine pH (5.0-8.0) Ur Specific [place] (1.005-1.025) Urine Protein (NEG-TRACE) MG/DL Urine Glucose (UA) (NEG) MG/DL Urine Ketones (NEG) MG/DL Urine Blood (NEG) Urine Nitrite (NEG) Ur Leukocyte Esterase (NEG) Urine RBC (0) /HPF Urine WBC (0-4) /HPF Ur Squamous Epith Cells /LPF Urine Bacteria /LPF Urine Mucus /LPF COVID-19 (VANGIE) (Negative) COVID-19 Clin Com Influenza Type A (SUSAN) (Negative) Influenza Type B (SUSAN) (Negative) Influenza A & B Note 12/18/21 12/18/21 12/18/21 Range/Units 19:00 19:00 19:10 WBC (4.8-10.8) X10*3/uL RBC (4.20-5.50) X10*6/uL Hgb (12.0-16.0) g/dl Hct (37.0-47.0) % MCV (80.0-98.0) fL MCH (27.0-33.0) pg MCHC (31.0-35.0) g/dl RDW (11.0-16.0) % Plt Count (160-400) X10*3/uL MPV (9.4-12.3) fL Immature Gran % (Auto) (0.0-0.4) % Neut % (Auto) (45-73) % Lymph % (Auto) (20-40) % [place] % (Auto) (2-11) % Eos % (Auto) (0-4) % Baso % (Auto) (0-2) % Lymph # (Auto) (1.2-4.9) X10*3/uL [place] # (Auto) (0.1-1.2) X10*3/uL Eos # (Auto) (0.0-0.4) X10*3/uL Baso # (Auto) (0.0-0.2) X10*3/uL Abs Immat Gran (auto) (0.00-0.03) X10*3/uL Absolute Neuts (auto) (2.0-8.3) x10*3/uL Absolute Nucleated RBC (0.0-0.012) X10*3/uL Nucleated RBC % (auto) (0.0-0.2) /100WBC Sodium (135-145) mmol/L Potassium (3.3-5.1) mmol/L Chloride (96-108) mmol/L Carbon Dioxide (22-29) mmol/L Anion Gap (12-20) BUN (9-16) mg/dL Creatinine (0.5-1.4) mg/dL Estim Creat Clear Calc Estimated GFR Random Glucose (60-115) mg/dL Calcium (8.4-10.2) mg/dL Magnesium (1.6-2.6) mg/dL Troponin I High Sens (<3.5-17.0) ng/L B-Natriuretic Peptide 27 (<100) pg/mL Urine Color Urine Appearance Urine pH (5.0-8.0) Ur Specific [place] (1.005-1.025) Urine Protein (NEG-TRACE) MG/DL Urine Glucose (UA) (NEG) MG/DL Urine Ketones (NEG) MG/DL Urine Blood (NEG) Urine Nitrite (NEG) Ur Leukocyte Esterase (NEG) Urine RBC (0) /HPF Urine WBC (0-4) /HPF Ur Squamous Epith Cells /LPF Urine Bacteria /LPF Urine Mucus /LPF COVID-19 (VANGIE) Negative (Negative) COVID-19 Clin Com See Note Influenza Type A (SUSAN) Negative (Negative) Influenza Type B (SUSAN) Negative (Negative) Influenza A & B Note See Note 12/18/21 Range/Units 22:59 WBC (4.8-10.8) X10*3/uL RBC (4.20-5.50) X10*6/uL Hgb (12.0-16.0) g/dl Hct (37.0-47.0) % MCV (80.0-98.0) fL MCH (27.0-33.0) pg MCHC (31.0-35.0) g/dl RDW (11.0-16.0) % Plt Count (160-400) X10*3/uL MPV (9.4-12.3) fL Immature Gran % (Auto) (0.0-0.4) % Neut % (Auto) (45-73) % Lymph % (Auto) (20-40) % [place] % (Auto) (2-11) % Eos % (Auto) (0-4) % Baso % (Auto) (0-2) % Lymph # (Auto) (1.2-4.9) X10*3/uL [place] # (Auto) (0.1-1.2) X10*3/uL Eos # (Auto) (0.0-0.4) X10*3/uL Baso # (Auto) (0.0-0.2) X10*3/uL Abs Immat Gran (auto) (0.00-0.03) X10*3/uL Absolute Neuts (auto) (2.0-8.3) x10*3/uL Absolute Nucleated RBC (0.0-0.012) X10*3/uL Nucleated RBC % (auto) (0.0-0.2) /100WBC Sodium (135-145) mmol/L Potassium (3.3-5.1) mmol/L Chloride (96-108) mmol/L Carbon Dioxide (22-29) mmol/L Anion Gap (12-20) BUN (9-16) mg/dL Creatinine (0.5-1.4) mg/dL Estim Creat Clear Calc Estimated GFR Random Glucose (60-115) mg/dL Calcium (8.4-10.2) mg/dL Magnesium (1.6-2.6) mg/dL Troponin I High Sens (<3.5-17.0) ng/L B-Natriuretic Peptide (<100) pg/mL Urine Color YELLOW Urine Appearance CLEAR Urine pH 5.5 (5.0-8.0) Ur Specific [place] 1.025 (1.005-1.025) Urine Protein NEG (NEG-TRACE) MG/DL Urine Glucose (UA) NEG (NEG) MG/DL Urine Ketones NEG (NEG) MG/DL Urine Blood TRACE (NEG) Urine Nitrite NEG (NEG) Ur Leukocyte Esterase NEG (NEG) Urine RBC 1-4 (0) /HPF Urine WBC 1-4 (0-4) /HPF Ur Squamous Epith Cells 1+ /LPF Urine Bacteria TRACE /LPF Urine Mucus 2+ /LPF COVID-19 (VANGIE) (Negative) COVID-19 Clin Com Influenza Type A (SUSAN) (Negative) Influenza Type B (SUSAN) (Negative) Influenza A & B Note Imaging Data CT head: Attestation: I personally reviewed and interpreted this imaging study as follows: Radiologist's impression: EXAMINATION: CT HEAD WITHOUT CONTRAST CLINICAL INFORMATION: Right-sided weakness COMPARISON: Portions of a previous study 10/22/21 TECHNIQUE: Multidetector CT examination of the head is performed without contrast. This CT examination was performed using dose optimization techniques as appropriate, variously including the following: *Automated exposure control *Adjustment of mA and/or kV according to patient size (this includes techniques or standardized protocols for targeted exams where dose is matched to indication/reason for exam; i.e. extremities or head) *Use of iterative reconstruction technique DLP: 598 mGy-cm FINDINGS: There is no evidence of a recent intracranial hemorrhage or extra-axial collection. The midline structures are nondisplaced. The ventricles, cisterns, and sulci are within normal limits. There is no evidence of an intra-axial mass. There are no suspicious focal areas of abnormal brain attenuation. The lozano-white interface is within normal limits. There is no evidence of acute territorial infarct. The paranasal sinuses and mastoids are within normal limits. ? CT/CT head/brain wo con IMPRESSION: 1. There is no evidence of a recent intracranial hemorrhage. ? 2. No acute infarct. ? 3. No suspicious interval change. Venous duplex right upper extremity right lower extremity: Attestation: I personally reviewed and interpreted this imaging study as follows: Radiologist's impression: COMPARISON:? Multiple priors, most recent right upper extremity ultrasound dated 11/13/2021. TECHNIQUE: Ultrasound of the upper extremity is performed using compression sonography and color and pulse Doppler flow with assessment of augmentation of flow. There is also imaging and Doppler assessment of the jugular and subclavian veins. Spectral analysis with color-flow imaging is performed. FINDINGS: There is heterogeneous echogenicity with noncompressibility of the right internal jugular and right subclavian veins. There is partial Doppler detectable vascular flow in these areas. The right axillary, brachial, basilic, cephalic, radial, and ulnar veins are patent with normal Doppler detectable vascular flow. US/US venous duplex UE RT IMPRESSION: Findings consistent with deep vein thrombosis within the right internal jugular and subclavian veins. ? This critical result was discussed with Dr. Louis at 8:20 PM on 12/18/2021 and it was ascertained that the content and urgency of the report was understood at the time of direct communication. COMPARISON:? Right lower extremity venous ultrasound dated 11/29/2020. TECHNIQUE: Ultrasound of the deep veins is performed from the hip to the calf with compression sonography and color and pulse Doppler assessment. Spectral analysis with color-flow imaging is performed. FINDINGS: There is normal venous compression and respiratory variation and augmented flow. The visualized common femoral vein, superficial femoral vein, profunda femoral vein, popliteal vein, and the trifurcation region shows no evidence of deep venous thrombosis. ? There is no significant popliteal fossa cyst. If the patient's symptoms persist, followup ultrasound in 5 days 7 days might be of value to exclude proximal propagation from a non-visualized calf vein. US/US venous duplex LE RT IMPRESSION: No DVT demonstrated in the right lower extremity. ECG Data Attestation: I personally reviewed and interpreted this ECG as follows: Prior ECG tracings: available for review Interpretation: Vent. rate 63 BPM NH interval 172 ms QRS duration 102 ms QT/QTc 404/413 ms P-R-T axes 53 -44 44 Normal sinus rhythm with sinus arrhythmia Left axis deviation Moderate voltage criteria for LVH, may be normal variant ( R in aVL , [place] product ) Septal infarct (cited on or before 25-AUG-2021) Abnormal ECG When compared with ECG of 22-OCT-2021 13:15, No significant change was found 18-DEC-2021 18:02:15 Scores Wells DVT Active cancer (tx with in 6 mo or palliation): 1 Localized tenderness along distribution of deep veins: 1 Score: 2 2-tier Risk: likely risk (17-53%) 3-tier Risk: moderate risk (17%) Discharge Plan Discharge Clinical Impression: Hodgkin disease, Deep vein thrombosis, upper right extremity Patient Disposition: Home, Self-Care Instructions: Deep Vein Thrombosis (ED) Additional Instructions: Le evaluaron por dolor e jonchaz?n en el brazo derecho. El d?plex venoso indica un co?gulo de adriano en las venas yugular interna derecha y subclavia derecha. [employer] Eliquis 10 mg cada 12 horas terese los pr?ximos 7 d?as. Luego tome Eliquis 5 mg cada 12 horas al d?a. Debe realizar un seguimiento con el Dr. Zhang y kessler m?dico de atenci?n primaria para continuar con la anticoagulaci?n. La tomograf?a computarizada de la kayla es negativa. D?plex de la extremidad inferior derecha es negativo [place] por elegir coral departamento de emergencias para kessler evaluaci?n. Por favor, lucio un seguimiento con el m?dico de atenci?n primaria seg?n sea necesario. Regrese al departamento de emergencias por cualquier s?ntoma nuevo, preocupante o que empeore. You were evaluated for right arm pain and swelling. Venous duplex indicates a blood clot of the right internal jugular and right subclavian veins. Please take Eliquis 10 mg every 12 hours for the next 7 days. Then take Eliquis 5 mg every 12 hours daily. You must follow-up with Dr. Zhang and your primary care physician for continued anticoagulation. CT scan of head is negative. Duplex of the right lower extremity is negative Thank you for choosing this emergency department for evaluation. Please follow-up with primary care physician as needed. Return to the emergency department for any new, concerning, or worsening symptoms. Prescriptions: New Eliquis DVT-PE Treat 30D Start 5 mg (74 tabs) tablets,dose pack 5 mg PO BID Qty: 74 0RF No Action (DME) adhesive bandage 1 bandage See Rx Instructions .ROUTE .MEDSUPPLY Qty: 20 5RF Rx Instructions: Use after Methotrexate injection pantoprazole 40 mg tablet,delayed release (DR/EC) 40 mg PO DAILY Qty: 90 1RF benztropine 0.5 mg Tablet 0.5 mg PO DAILY 0RF risperidone 1 mg Tablet 1 mg PO BEDTIME 0RF alprazolam 2 mg Tablet 2 mg PO BEDTIME PRN (Reason: INSOMINIA, ANXITEY) 0RF baclofen 5 mg tablet 5 mg PO TID PRN (Reason: Muscle spasms) Qty: 10 0RF gabapentin 400 mg capsule 400 mg PO TID PRN (Reason: Pain) 0RF gabapentin 400 mg capsule 400 mg PO TID 0RF trazodone 150 mg tablet 1 tab PO BEDTIME PRN (Reason: Sleep) 0RF risperidone 1 mg tablet 0.5 mg PO DAILY PRN (Reason: Agitation) 0RF docusate sodium 100 mg Tablet 100 mg PO BID PRN (Reason: Constipation) 0RF oxycodone-acetaminophen [Percocet] 5-325 mg tablet 1 tab PO Q8H PRN (Reason: pain) 0RF prednisone 10 mg tablet 20 mg PO DAILY 0RF Orencia ClickJect 125 mg/mL auto-injector 125 mg subcut Q2W 0RF oxycodone 5 mg tablet 5 mg PO TID PRN (Reason: pain) Qty: 12 0RF Rx Instructions: short course due to lupus exacerbation prednisone 20 mg tablet 40 mg PO DAILY 10 Days Qty: 20 0RF oxycodone 5 mg capsule 5 mg PO Q8H PRN (Reason: pain) Qty: 9 0RF aspirin 81 mg tablet,delayed release (DR/EC) 1 tab PO QAM 0RF famotidine 20 mg tablet 1 tab PO BID@1200,2100 0RF methotrexate sodium 2.5 mg tablet 4 tab PO Q14D 0RF ferrous sulfate [FeroSul] 325 mg (65 mg iron) tablet 1 tab PO QAM 0RF hydroxychloroquine 200 mg tablet 1 tab PO QAM 0RF albuterol sulfate [ProAir HFA] 90 mcg/actuation HFA aerosol inhaler 2 puff PO Q4-6H PRN (Reason: Wheezing) 0RF cyclobenzaprine 5 mg tablet 1 tab PO TID PRN (Reason: muscle spasm) 0RF duloxetine 60 mg capsule,delayed release(DR/EC) 1 cap PO BID 0RF diclofenac sodium 1 % gel 4 g topical BID 0RF Eliquis 5 mg tablet 5 mg PO BID 0RF ursodiol 500 mg tablet 500 mg PO BID Qty: 90 1RF (DME) Monoject TB Safety Syringe 1 mL 28 gauge x 1/2 syringe See Rx Instructions .ROUTE .MEDSUPPLY Qty: 50 1RF Rx Instructions: As directed - use to inject Methorexate once per week folic acid 1 mg tablet 1 mg PO QAM Qty: 90 3RF Referrals: Virgie Zhang MD [Physician] - Interventions: ED Discharge Assessment Last Done: 12/18/21 23:36
--- NOTE | 2021-12-18 17:50 | ECG_ITS ---
Test Reason : EDEMA Blood Pressure : / mmHG Vent. Rate : 063 BPM Atrial Rate : 063 BPM P-R Int : 172 ms QRS Dur : 102 ms QT Int : 404 ms P-R-T Axes : 053 -44 044 degrees QTc Int : 413 ms Normal sinus rhythm with sinus arrhythmia Left axis deviation Moderate voltage criteria for LVH, may be normal variant ( R in aVL , [place] product ) Septal infarct (cited on or before 25-AUG-2021) Abnormal ECG When compared with ECG of 22-OCT-2021 13:15, No significant change was found Referred By: Margot Noble Electronically Signed By:KENN STEVENSON
[2021-12-18 18:10] LABS: Magnesium 2.2 mg/dL (1.6-2.6)
[2021-12-18 18:26] LABS: Troponin-I High Sensitivity < 3.5 ng/L (<3.5-17.0)
[2021-12-18 19:19] LABS: Influenza A Negative (Negative); Influenza B2 Negative (Negative)
[2021-12-18 19:23] LABS: COVID-19 Test Negative (Negative); IDNOW Serial# 16C4AD1C
[2021-12-18 19:38] LABS: B Type Natriuretic Peptide 27 pg/mL (<100)
[2021-12-18] MEDS: Acetaminophen 325 MG TABLET 650 MG PO (20:05)
[2021-12-18] MEDS: Ibuprofen 600 MG TABLET PO (20:06)
[2021-12-18 21:37] VITALS: BP 112/75; PULSE 56; RESP 16; TEMP 36.4; O2SAT 97
[2021-12-18] MEDS: oxyCODONE HCl Immed Release 5 MG TABLET PO (22:09)
[2021-12-18 22:46] VITALS: BP 158/87; PULSE 60; TEMP 36.6; O2SAT 96
[2021-12-18] MEDS: Apixaban 5 MG TABLET 10 MG PO (22:56)
[2021-12-18 23:23] LABS: Appearance Urine CLEAR; Color Urine YELLOW; Glucose Urine UA NEG (NEG); Leukocyte Esterase Urine NEG (NEG); Nitrite Urine NEG (NEG); PH 5.5 (5.0-8.0); Specific Gravity - Urine 1.025 (1.005-1.025); UACC Culture Trigger NO; Urine Blood TRACE (NEG); Urine Ketones NEG (NEG); Urine Protein NEG (NEG-TRACE)
[2021-12-18 23:50] LABS: Bacteria Urine TRACE /LPF; Mucus Urine 2+ /LPF; Squamous Epithelial Cell Urine 1+ /LPF
== END 2021-12-19 | disposition home or self-care (01) ==
PROVIDERS: Nurse Practitioner Family; Emergency Provider Emergency Medicine; PCP General Practice
DX: I82.621 Acute embolism and thrombosis of deep veins of right upper extremity (principal); C81.90 Hodgkin lymphoma, unspecified, unspecified site; G89.4 Chronic pain syndrome; Z79.891 Long term (current) use of opiate analgesic; Z20.822 Contact with and (suspected) exposure to COVID-19
CPT/HCPCS: 36415; 70450; 80048; 81001; 83735; 83880; 84484; 85025; 87502; 87635; 93005; 93971; 99283; 99284

== ENCOUNTER 2021-12-23 15:02 | Outpatient (REF) | payer MEDICAID, SELFPAY ==
--- NOTE | ~2021-12-23 | MR_ITS ---
EXAMINATION: MR WRIST WITHOUT AND WITH CONTRAST, RIGHT CLINICAL INFORMATION: Right wrist swelling and bruising for 4 months. Pain. COMPARISON: Right hand and wrist radiograph dated 11/13/2021. TECHNIQUE: MRI of the wrist was performed before and after the intravenous administration of 7.5 mL Gadavist on a high-field scanner. FINDINGS: TRIANGULAR FIBROCARTILAGE: Intact. INTRINSIC LIGAMENTS: Grossly intact. TENDONS/MEDIAN NERVE: Trace fluid within the extensor carpi radialis longus and extensor carpi radialis brevis tendon sheaths consistent mild tenosynovitis. Minimal extensor carpi ulnaris tendinosis. No transverse tendon tear or tendon retraction. Intact median nerve. ARTICULAR CARTILAGE/BONE: Marrow edema within the distal radius as well as throughout the proximal aspect of the proximal carpal row, most prominent in the periarticular regions. Mild associated postcontrast enhancement. JOINT FLUID/SOFT TISSUES: [id number]-[id number] radiocarpal joint effusion with prominent synovitis as well as prominent postcontrast enhancement. Small distal radial ulnar joint effusion with prominent synovial enhancement. Mild adjacent soft tissue edema and enhancement. MR/MR wrist RT wo/w con IMPRESSION: [id number] radiocarpal joint effusion as well as a small distal radial ulnar joint effusion with prominent synovitis/enhancement. Adjacent soft tissue edema and enhancement as well as marrow edema within the distal radius and proximal carpal row. Findings likely represent an acute inflammatory arthropathy. Infectious arthropathy could also be considered in the appropriate clinical setting. Minimal extensor carpi radialis longus and extensor carpi radialis brevis tenosynovitis. Minimal extensor carpi ulnaris tendinosis. No measurable tendon tear or tendon retraction.
== END 2021-12-23 15:03 | disposition home or self-care (01) ==
LOC: HO.MRI 15:02
PROVIDERS: Visit Provider Orthopaedic Surgery
DX: M65.80 Other synovitis and tenosynovitis, unspecified site (principal); M79.89 Other specified soft tissue disorders
CPT/HCPCS: 73223; A9585

== ENCOUNTER 2021-12-25 09:00 | Outpatient (REF) | payer MEDICAID, SELFPAY ==
--- NOTE | ~2021-12-25 | CT_ITS ---
EXAMINATION: CT CHEST WITHOUT CONTRAST CLINICAL INFORMATION: Followup adenopathy. COMPARISON: CT chest 09/23/2020. TECHNIQUE: Multidetector volumetric CT imaging of the chest was done. Axial MIP volume rendering provided. Sagittal and coronal reformatted images were obtained. This CT examination was performed using dose optimization techniques as appropriate, variously including the following: *Automated exposure control *Adjustment of mA and/or kV according to patient size (this includes techniques or standardized protocols for targeted exams where dose is matched to indication/reason for exam; i.e. extremities or head) *Use of iterative reconstruction technique DLP: 199 mGy-cm FINDINGS: HEATING UNIT MECHANIC: Unremarkable. LUNGS: The lungs are mildly emphysematous but clear of acute pneumonic process. There is a 1 mm calcified nodule right middle lobe axial image 372/7. MEDIASTINUM: The thyroid lobes are symmetric and normal. The central trachea and the bronchi are widely patent. The heart size and the great vessels are normal caliber. There is residual thymic tissue seen in the anterior mediastinum, likely hyperplasia. There are calcified left hilar lymph nodes and moderate sized right pretracheal lymph nodes measuring 1 cm x 6 mm, same as previous size. PLEURA: There is no pleural effusion. No pleural mass or thickening. AXILLA: There are multiple small left axillary lymph nodes with the largest lymph node measuring 1.2 x 0.9 cm. There are surgical anuj in the right axilla likely from previous lymph node dissection. There are additional few right axillary lymph nodes which are borderline measuring 1.5 cm on axial image 19/3. UPPER ABDOMEN: The visualized liver, spleen, pancreas and bilateral adrenal glands are unremarkable. The gallbladder has been removed. OSSEOUS STRUCTURES: No aggressive lytic or sclerotic process seen. Mild degenerative ventral spurring throughout the dorsal spine. CT/CT chest wo con IMPRESSION: 1 mm calcified nodule right middle lobe, stable. No additional nodules are seen. Hyperplastic thymic tissue. Surgical anuj right axilla from previous intervention. Prominent bilateral axillary lymph nodes, stable. Fleischner guidelines were followed.
== END 2021-12-25 09:01 | disposition home or self-care (01) ==
LOC: HO.CT 09:00
PROVIDERS: Visit Provider Internal Medicine Medical Oncology
DX: C81.90 Hodgkin lymphoma, unspecified, unspecified site (principal)
CPT/HCPCS: 71250

== ENCOUNTER → 2022-01-19 13:18 | Outpatient (BNVA) | payer MEDICAID, SELFPAY | PROVIDERS: PCP General Practice; Visit Provider Orthopaedic Surgery | DX: G56.01 Carpal tunnel syndrome, right upper limb (principal); M65.80 Other synovitis and tenosynovitis, unspecified site; M65.4 Radial styloid tenosynovitis [de Quervain]; M79.89 Other specified soft tissue disorders; M05.9 Rheumatoid arthritis with rheumatoid factor, unspecified | CPT/HCPCS: 20526; 99212; J1100 ==

== ENCOUNTER 2022-01-26 11:28 | Outpatient (REF) | payer MEDICAID, SELFPAY ==
--- NOTE | ~2022-01-26 | US_ITS ---
EXAMINATION: RIGHT UPPER UPPER EXTREMITY VENOUS DUPLEX EXAM CLINICAL INFORMATION: Tenderness and edema right leg COMPARISON: None TECHNIQUE: Routine grayscale, color and Doppler imaging of right lower extremity veins were performed. FINDINGS: There is normal compression, color flow and respiratory motion changes seen along the right common femoral, greater saphenous, superficial femoral and popliteal veins. The peroneal vein is patent. There is thrombus visualized in the distal and proximal posterior tibial veins. The soft tissues are normal. There is no Dhillon's cyst. US/US venous duplex UE RT IMPRESSION: Acute partial DVT in the right proximal and distal posterior tibial vein. Rest of the right lower extremity veins are patent. Preliminary results were called to Dr. Zhang by the pig iron loader.
--- NOTE | ~2022-01-26 | US_ITS ---
EXAMINATION: RIGHT UPPER UPPER EXTREMITY VENOUS DUPLEX EXAM CLINICAL INFORMATION: Tenderness and edema right leg COMPARISON: None TECHNIQUE: Routine grayscale, color and Doppler imaging of right lower extremity veins were performed. FINDINGS: There is normal compression, color flow and respiratory motion changes seen along the right common femoral, greater saphenous, superficial femoral and popliteal veins. The peroneal vein is patent. There is thrombus visualized in the distal and proximal posterior tibial veins. The soft tissues are normal. There is no Dhillon's cyst. US/US venous duplex LE RT IMPRESSION: Acute partial DVT in the right proximal and distal posterior tibial vein. Rest of the right lower extremity veins are patent. Preliminary results were called to Dr. Zhang by the records management assistant.
== END 2022-01-26 11:29 | disposition home or self-care (01) ==
LOC: HO.US 11:28
PROVIDERS: PCP General Practice; Visit Provider Internal Medicine Medical Oncology
DX: I82.621 Acute embolism and thrombosis of deep veins of right upper extremity (principal); R60.0 Localized edema
CPT/HCPCS: 93971

== ENCOUNTER 2022-01-26 13:09 | Emergency (ER) | payer MEDICAID, SELFPAY ==
[2022-01-26 15:38] VITALS: BP 145/90; PULSE 73; RESP 18; TEMP 36.1; O2SAT 100; BMI 29.0
--- NOTE | 2022-01-26 16:12 | ED.RECABL ---
HPI - Recheck/Abnormal Lab/Rx General Chief Complaint: General Medical Stated Complaint: DVT sent by Vicente Time Seen by Provider: 01/26/22 13:23 Source: patient Mode of arrival: ambulatory Limitations: language barrier ([place]oz[place]ican Speaking ) History of Present Illness HPI narrative: 46-year-old female with a past medical history of lupus, RA, Hodgkin's lymphoma, B12 deficiency and DVT currently on Eliquis and B12 replacement presenting to the ED with complaints of right leg pain/swelling despite being on her Eliquis and she reports she is taking as prescribed. Dr. Zhang her polisher balance screwhead/oncologist did outpatient labs and she had an elevated D-dimer therefore she ordered an ultrasound of her right lower extremity which revealed a DVT in the right proximal and distal posterior tibial vein and was sent here to be started on Lovenox per patient and Dr. Zhang that we spoke to through [facility] due to outpatient failed treatment with Eliquis. Patient denies any other symptoms related to this at this time. MD complaint: other (right leg pain/swelling hx of DVT on Eliquis now has a new DVT requiring Lovenox per Dr. Zhang) Returns today for: called because of abnormal lab/test (DVT in RLE on outpatietn US ordered by Dr. Zhang ) Symptoms since prior visit: worsening pain and worsening swelling Context: called for abnormal lab result Related Data Home Medications Medication Instructions Recorded Confirmed benztropine 0.5 mg tablet 0.5 mg PO DAILY 05/01/20 01/26/22 risperidone 1 mg tablet 1 mg PO BEDTIME 05/01/20 01/26/22 alprazolam 2 mg tablet (Xanax) 2 mg PO BEDTIME PRN INSOMINIA, 09/17/21 01/26/22 ANXITEY albuterol sulfate 90 mcg/actuation 2 puff PO Q4-6H PRN Wheezing 10/02/21 01/26/22 aerosol inhaler (ProAir HFA) cyclobenzaprine 5 mg tablet 1 tab PO TID PRN muscle spasm 10/02/21 01/26/22 diclofenac sodium 1 % topical gel 4 g topical BID 10/02/21 01/26/22 duloxetine 60 mg capsule,delayed 1 cap PO BID 10/02/21 01/26/22 release famotidine 20 mg tablet 1 tab PO BID@1200,2100 10/02/21 01/26/22 ferrous sulfate 325 mg (65 mg 1 tab PO QAM 10/02/21 01/26/22 iron) tablet (FeroSul) hydroxychloroquine 200 mg tablet 1 tab PO QAM 10/02/21 01/26/22 methotrexate sodium 2.5 mg tablet 4 tab PO Q14D 10/02/21 01/26/22 apixaban 5 mg tablet (Eliquis) 5 mg PO BID 10/07/21 01/26/22 abatacept 125 mg/mL subcutaneous 125 mg subcut Q2W 10/22/21 01/26/22 auto-injector (Orencia ClickJect) docusate sodium 100 mg tablet 100 mg PO BID PRN Constipation 10/22/21 01/26/22 gabapentin 400 mg capsule 400 mg PO TID 10/22/21 01/26/22 gabapentin 400 mg capsule 400 mg PO TID PRN Pain 10/22/21 01/26/22 oxycodone-acetaminophen 5 mg-325 1 tab PO Q8H PRN pain 10/22/21 01/26/22 mg tablet (Percocet) prednisone 10 mg tablet 20 mg PO DAILY 10/22/21 01/26/22 risperidone 1 mg tablet 0.5 mg PO DAILY PRN Agitation 10/22/21 01/26/22 trazodone 150 mg tablet 1 tab PO BEDTIME PRN Sleep 10/22/21 01/26/22 Previous Rx's Medication Instructions Recorded adhesive bandage 1 #20 ea 05/21/20 folic acid 1 mg tablet 1 mg PO QAM #90 tabs 02/11/21 syringe with needle, safety 1 mL #50 ea 02/11/21 28 gauge x 1/2 (Monoject TB Safety Syringe) baclofen 5 mg tablet 5 mg PO TID PRN Muscle spasms #10 09/08/21 tabs ursodiol 500 mg tablet 500 mg PO BID #90 tabs 10/08/21 oxycodone 5 mg tablet 5 mg PO TID PRN pain #12 tabs 10/22/21 oxycodone 5 mg capsule 5 mg PO Q8H PRN pain #9 caps 11/13/21 prednisone 20 mg tablet 40 mg PO DAILY 10 days #20 tabs 11/13/21 pantoprazole 40 mg tablet,delayed 40 mg PO DAILY #90 tabs 12/07/21 release enoxaparin 80 mg/0.8 mL 80 mg (0.8 mL) subcut DAILY dvt in 01/26/22 subcutaneous syringe (Lovenox) right lower extremity failed eliquis #8 mL Allergies Allergy/AdvReac Type Severity Reaction Status Date / Time almond [ALMONDS] Allergy Severe ANAPHYLAXIS Verified 01/26/22 10:40 adhesive tape [ADHESIVE TAPE] Allergy Intermediate RASH Verified 01/26/22 10:40 morphine [MORPHINE] Allergy Intermediate GI UPSET, Verified 01/26/22 10:40 difficulty breathing tramadol [TRAMADOL] AdvReac Unknown NAUSEA & Verified 01/26/22 10:40 VOMITING Review of Systems Review of Systems: Constitutional : No Weight loss, No Fever, No Chills, No Night Sweats, No Fatigue, No Malaise ENT/Mouth : No Hearing loss, No Ear Pain, No Nasal Congestion, No Sinus Pain, No Hoarseness, No sore throat, No Rhinorrhea, No Swallowing Difficulty Eyes: No Eye Pain, No Swelling, No Redness, No Foreign Body, No Discharge, No Vision Changes Cardiovascular : No Chest Pain, No SOB, No Dyspnea on Exertion, No Orthopnea, No Edema, No Palpitations Respiratory : No Cough, No Sputum, No Wheezing, No Smoke Exposure, No Dyspnea Gastrointestinal : No Nausea, No Vomiting, No Diarrhea, No Constipation, No abdominal Pain, No Hematochezia, No Melena Genitourinary : no irregular bleeding, No Dysuria, No Urinary Frequency, No Hematuria, No Urinary Incontinence, No Urgency, No Flank Pain, No Urinary Flow Changes, No Hesitancy Musculoskeletal : + right leg pain/swelling, No Myalgias Skin : No Skin Lesions, No rash Neuro : No Weakness, No Numbness, No Paresthesias, No Loss of Consciousness, No Dizziness, No Headache Psych : No Anxiety/Panic, No Depression, No SI/HI/AH/VH, No Social Issues, Heme/Lymph: No Bruising, No Bleeding,No Lymphadenopathy Endocrine : No Polyuria, No Polydipsia, No Temperature Intolerance Yes all other systems are reviewed and are negative [facility] Past Medical History Attestation statement: The following information was validated with the patient. Source: old records reviewed and nursing notes reviewed Medical History Acute arthritis Bleeding hemorrhoid Bone cancer Cancer of heart Chronic GERD De Quervain's disease (tenosynovitis) Degeneration of intervertebral disc at C4-C5 level Degeneration, intervertebral disc, lumbar Depressive disorder Esophageal dysphagia Fibromyalgia Gallstones History of chemotherapy History of chemotherapy Lung cancer Nocturia Seropositive rheumatoid arthritis Stress incontinence in female Urgency-frequency syndrome Vitamin D deficiency Surgical History H/O tubal ligation History of biopsy History of esophagogastroduodenoscopy (EGD) History of lymph node dissection of left axilla History of repair of inguinal hernia Hx laparoscopic cholecystectomy Hx of colonoscopy Hx of endoscopy Family History Family History Maternal Grandmother Ovarian cancer Social History Social History Household Members: Spouse Housing: Apartment Are you a primary health care administrator to a significant other at home: No Do 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 have 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 or other home services: Yes (son screw cutter) Alcohol intake: current Alcohol intake frequency: does not drink Patient Tobacco Use Status: Current everyday Tobacco user Tobacco use type: Cigarette Substance Use Type: Marijuana Advance Directives: Yes Advance Directives on File: Yes Advance Directives Date on File: 09/23/20 service: No Current occupational status: disabled 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 Blood pressure 145/90. Heart rate normal. Respiration rate normal. Temperature normal. Oxygen saturation normal. Appearance: Alert. Oriented X3. No acute distress. Head: Normal external exam. Normocephalic. Atraumatic. Eyes: PERRLA. EOMI. Conjunctiva and sclera normal. Eyelids normal. ENT: Pharynx normal. Uvula midline. Moist mucous membranes. Normal voice. No trismus noted. No drooling noted. No muffled voice noted. Neck: Normal inspection. Neck supple. FROM. No adenopathy. Thyroid Normal. No meningeal signs. CVS: Normal heart rate and rhythm. Heart sound normal. Pulses normal throughout. No murmurs/rales/gallops. Respiratory: No respiratory distress. Painless inspiration. Breath sounds normal. No wheezes/rales/rhonchi noted. No accessory muscle usage noted or decreased air movement noted. No signs of trauma. Back: Full range of motion noted. Skin: Skin warm and dry. Normal skin color. Normal skin turgor. No rashes/lesions/lacerations noted. Extremities: Patient with TTP or Right lower extremity and calf tenderness mild edema. otherwise all other exhibit Extremities exhibit normal range of motion and nontender. Neuro: Oriented X 3. No motor deficit. No sensory deficit. Reflexes normal. Normal steady gait. No focal neuro deficits noted. CN's II-XII intact bilaterally? Vascular: + radial pulses/+ 2 distal pedal pulses/+2 dorsalis pedis b/l. Normal cap refill. No cyanosis noted to upper extremity nails and lower extremity toes nails. Course Course Course Narrative: 16pm - 46-year-old female with a past medical history of lupus, RA, Hodgkin's lymphoma, B12 deficiency and DVT currently on Eliquis and B12 replacement presenting to the ED with complaints of right leg pain/swelling despite being on her Eliquis and she reports she is taking as prescribed. Dr. Zhang her polisher balance screwhead/oncologist did outpatient labs and she had an elevated D-dimer therefore she ordered an ultrasound of her right lower extremity which revealed a DVT in the right proximal and distal posterior tibial vein and was sent here to be started on Lovenox per patient and Dr. Zhang that we spoke to through [facility] due to outpatient failed treatment with Eliquis. Patient had outpatient labs this morning which revealed mild anemia with an H&H of 11.4/35.8. D-dimer was 245. Otherwise all other labs are within normal limits. Ultrasound of right lower extremity revealed acute partial DVT right proximal and distal posterior tibial vein rest of lower extremity veins are patent. therefore we will just had a PT/PTT/INR at this time and I spoke to Dr. Zhang she reported that the patient once her labs are back she can be started on Lovenox and she will no longer take the Eliquis. Patient understands agrees with this plan. Reevaluation(s) Reevaluation #1: Will start the patient on Lovenox as patient's PT/INR/PTT is 11.9/1.0/34.5. Therefore at this time will order the Lovenox and discharge the patient with Lovenox. Patient understands to follow up with Dr. Zhang and her PCP. Time: 17:14 MDM - Recheck/Abnormal Lab/Rx Medical Records Attestation: I reviewed the patient's medical records. Lab Data Attestation: I reviewed the patient's lab results. Labs: Lab Results 01/26/22 Range/Units 16:53 PT 11.9 (10.0-13.1) SEC INR 1.0 (0.9-1.1) APTT 34.5 D (24.1-38.0) SEC Imaging Data Outpatient ultrasound of venous duplex ultrasound of right lower extremity ordered by Dr. Zhang: Attestation: I personally reviewed and interpreted this imaging study as follows: Radiologist's impression: EXAMINATION: Right upper extremity venous study.. TECHNIQUE: Routine grayscale, color and Doppler imaging of right upper extremity venous study was performed. FINDINGS: There is a normal compression and respiratory augmentation seen in the right internal jugular vein, subclavian, axillary, brachial, basilic and cephalic veins. The radial and ulnar veins are patent as well. IMPRESSION: Unremarkable right upper extremity venous study. EXAMINATION: Right lower extremity venous study. TECHNIQUE: Routine grayscale, color and Doppler imaging of right lower extremity venous study was performed. FINDINGS: There is normal compression, color flow and respiratory motion changes along the right common femoral, greater saphenous, superficial femoral and popliteal veins. The peroneal vein is patent. There is partially occlusive thrombus visualized in the proximal and distal posterior tibial veins. The soft tissues are normal. There is no Dhillon's cyst. IMPRESSION: Acute partial DVT right proximal and distal posterior tibial vein. Rest of the lower extremity veins are patent. Addendum Dictated By: Jamie Avelar MD Addendum Signed By: <Electronically signed by Jamie Avelar MD in [place]> 01/26/22 1601 Addendum Cosigned By: DD/ TD/TT: / EXAMINATION: RIGHT UPPER UPPER EXTREMITY VENOUS DUPLEX EXAM CLINICAL INFORMATION: Tenderness and edema right leg? COMPARISON: None? TECHNIQUE: Routine grayscale, color and Doppler imaging of right lower extremity veins were performed.? FINDINGS: There is normal compression, color flow and respiratory motion changes seen along the right common femoral, greater saphenous, superficial femoral and popliteal veins. The peroneal vein is patent. There is thrombus visualized in the distal and proximal posterior tibial veins. The soft tissues are normal. There is no Dhillon's cyst. ? US/US venous duplex UE RT IMPRESSION: Acute partial DVT in the right proximal and distal posterior tibial vein. Rest of the right lower extremity veins are patent. ? Preliminary results were called to Dr. Zhang by the type copy examiner. Critical Care Time Critical Care Time Critical Care Time: Yes Total Critical Care Time: 60 Attestation: I personally attest to this time spent taking care of the patient Discharge Plan Discharge Clinical Impression: Acute deep vein thrombosis (DVT) of right tibial vein Patient Disposition: Home, Self-Care Instructions: Enoxaparin (By injection), Deep Vein Thrombosis (ED) Prescriptions: New enoxaparin [Lovenox] 80 mg/0.8 mL syringe 80 mg subcut DAILY Qty: 8 2RF No Action (DME) adhesive bandage 1 bandage See Rx Instructions .ROUTE .MEDSUPPLY Qty: 20 5RF Rx Instructions: Use after Methotrexate injection pantoprazole 40 mg tablet,delayed release (DR/EC) 40 mg PO DAILY Qty: 90 1RF benztropine 0.5 mg Tablet 0.5 mg PO DAILY risperidone 1 mg Tablet 1 mg PO BEDTIME alprazolam [Xanax] 2 mg Tablet 2 mg PO BEDTIME PRN (Reason: INSOMINIA, ANXITEY) baclofen 5 mg tablet 5 mg PO TID PRN (Reason: Muscle spasms) Qty: 10 0RF gabapentin 400 mg capsule 400 mg PO TID PRN (Reason: Pain) gabapentin 400 mg capsule 400 mg PO TID trazodone 150 mg tablet 1 tab PO BEDTIME PRN (Reason: Sleep) risperidone 1 mg tablet 0.5 mg PO DAILY PRN (Reason: Agitation) docusate sodium 100 mg Tablet 100 mg PO BID PRN (Reason: Constipation) oxycodone-acetaminophen [Percocet] 5-325 mg tablet 1 tab PO Q8H PRN (Reason: pain) prednisone 10 mg tablet 20 mg PO DAILY Orencia ClickJect 125 mg/mL auto-injector 125 mg subcut Q2W oxycodone 5 mg tablet 5 mg PO TID PRN (Reason: pain) Qty: 12 0RF Rx Instructions: short course due to lupus exacerbation prednisone 20 mg tablet 40 mg PO DAILY 10 Days Qty: 20 0RF oxycodone 5 mg capsule 5 mg PO Q8H PRN (Reason: pain) Qty: 9 0RF famotidine 20 mg tablet 1 tab PO BID@1200,2100 methotrexate sodium 2.5 mg tablet 4 tab PO Q14D ferrous sulfate [FeroSul] 325 mg (65 mg iron) tablet 1 tab PO QAM hydroxychloroquine 200 mg tablet 1 tab PO QAM albuterol sulfate [ProAir HFA] 90 mcg/actuation HFA aerosol inhaler 2 puff PO Q4-6H PRN (Reason: Wheezing) cyclobenzaprine 5 mg tablet 1 tab PO TID PRN (Reason: muscle spasm) duloxetine 60 mg capsule,delayed release(DR/EC) 1 cap PO BID diclofenac sodium 1 % gel 4 g topical BID Eliquis 5 mg tablet 5 mg PO BID ursodiol 500 mg tablet 500 mg PO BID Qty: 90 1RF (DME) Monoject TB Safety Syringe 1 mL 28 gauge x 1/2 syringe See Rx Instructions .ROUTE .MEDSUPPLY Qty: 50 1RF Rx Instructions: As directed - use to inject Methorexate once per week folic acid 1 mg tablet 1 mg PO QAM Qty: 90 3RF Referrals: Mackenzie Estrada MD [Primary Care Provider] - 2 days Virgie Zhang MD [Physician] - 1 week Print Language: Mozambican
[2022-01-26 17:06] LABS: Prothrombin Time 11.9 SEC (10.0-13.1)
[2022-01-26 17:09] LABS: Partial Thromboplastin Time 34.5 SEC (24.1-38.0)
[2022-01-26] MEDS: oxyCODONE HCl Immed Release 5 MG TABLET PO (17:30)
[2022-01-26] MEDS: Enoxaparin Sodium 80 MG/0.8 ML SYRINGE SUBCUT (17:31)
== END 2022-01-26 17:55 | disposition home or self-care (01) ==
PROVIDERS: Emergency Provider Emergency Medicine; PCP General Practice
DX: I82.441 Acute embolism and thrombosis of right tibial vein (principal); M05.9 Rheumatoid arthritis with rheumatoid factor, unspecified; M32.9 Systemic lupus erythematosus, unspecified; C81.90 Hodgkin lymphoma, unspecified, unspecified site; Z79.01 Long term (current) use of anticoagulants; Z79.899 Other long term (current) drug therapy
CPT/HCPCS: 36415; 85610; 85730; 96372; 99283; 99284; J1650

== ENCOUNTER 2022-02-01 12:52 | Emergency (ER) | payer OTHER, MEDICAID, SELFPAY ==
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
[2022-02-01 13:10] VITALS: BP 138/75; PULSE 84; RESP 18; TEMP 37; O2SAT 96; BMI 30.8
[2022-02-01 14:00] VITALS: BP 132/82; PULSE 84; O2SAT 97
== END 2022-02-01 15:06 | disposition home or self-care (01) ==
PROVIDERS: Emergency Provider Emergency Medicine Emergency Medical Services; PCP General Practice
DX: S59.901A Unspecified injury of right elbow, initial encounter (principal); V43.62XA Car passenger injured in collision with other type car in traffic accident, initial encounter; R07.81 Pleurodynia; Y93.89 Activity, other specified; Y92.410 Unspecified street and highway as the place of occurrence of the external cause; Y99.9 Unspecified external cause status
CPT/HCPCS: 70450; 71046; 72125; 73080; 99282; 99284

== ENCOUNTER → 2022-02-15 12:37 | Outpatient (BNVA) | payer MEDICAID, SELFPAY | PROVIDERS: PCP General Practice; Visit Provider Internal Medicine Rheumatology | DX: M05.9 Rheumatoid arthritis with rheumatoid factor, unspecified (principal); C81.90 Hodgkin lymphoma, unspecified, unspecified site; I80.201 Phlebitis and thrombophlebitis of unspecified deep vessels of right lower extremity; Z79.899 Other long term (current) drug therapy | CPT/HCPCS: 99212 ==

== ENCOUNTER 2022-02-17 10:01 | Outpatient (REF) | payer MEDICAID, SELFPAY ==
[2022-02-17 10:22] LABS: MANUAL DIFF FLAG NO
[2022-02-17 10:34] LABS: Basophils Percent Auto 0.3 % (0-2); Eosinophils Absolute Auto 0.1 X10*3/uL (0.0-0.4); Hematocrit 37.2 % (37.0-47.0); Imm Gran Abs Auto 0.01 X10*3/uL (0.00-0.03); Imm Gran Pct Auto 0.1 % (0.0-0.4); Lymphocytes Absolute Auto 3.1 X10*3/uL (1.2-4.9); Lymphocytes Percent Auto 44.4 % (20-40); Mean Corpuscular HGB Conc 32.3 g/dl (31.0-35.0); Mean Corpuscular Hemoglobin 29.7 pg (27.0-33.0); Mean Corpuscular Volume 92.1 fL (80.0-98.0); Mean Platelet Volume 9.8 fL (9.4-12.3); Monocytes Absolute Auto 0.3 X10*3/uL (0.1-1.2); Monocytes Percent Auto 4.8 % (2-11); Neutrophils Absolute Auto 3.5 x10*3/uL (2.0-8.3); Neutrophils Percent Auto 49.4 % (45-73); Platelet Count 306 X10*3/uL (160-400); Red Blood Count 4.04 X10*6/uL (4.20-5.50); White Blood Count 7.1 X10*3/uL (4.8-10.8)
[2022-02-17 11:05] LABS: Alanine Aminotransferase 13 U/L (0-31); Albumin Level 4.1 g/dL (3.5-5.0); Alkaline Phosphatase 67 U/L (39-117); Anion Gap 13 (12-20); Aspartate Amino Transferase 13 U/L (5-31); Bilirubin Total 0.2 mg/dL (0.0-1.0); Blood Urea Nitrogen 11 mg/dL (9-16); C Reactive Protein 0.63 mg/dL (< or = 0.50); Calcium 9.4 mg/dL (8.4-10.2); Carbon Dioxide 24 mmol/L (22-29); Chloride 104 mmol/L (96-108); Estimated Glomerular Filt Rate > 60; Glucose Random 85 mg/dL (60-115); Potassium 3.8 mmol/L (3.3-5.1); Sodium 137 mmol/L (135-145); Total Protein 8.8 g/dL (6.5-8.0)
[2022-02-17 11:14] LABS: Erythrocyte Sedimentation Rate 73 MM/HR (0-20)
[2022-02-17 11:15] LABS: Rheumatoid Factor 259.4 IU/mL (<15.0)
[2022-02-19 13:07] LABS: SM/Ribonucleoprotein Ab <1.0 NEG AI (<1.0 NEG); Smith Protein <1.0 NEG AI (<1.0 NEG)
[2022-02-22 16:26] LABS: Cyclic Citrullinated Peptide >250 UNITS
== END 2022-02-17 10:02 | disposition home or self-care (01) ==
LOC: HO.LAB 10:01
PROVIDERS: Visit Provider Internal Medicine Rheumatology
DX: M05.9 Rheumatoid arthritis with rheumatoid factor, unspecified (principal); I80.201 Phlebitis and thrombophlebitis of unspecified deep vessels of right lower extremity; C81.90 Hodgkin lymphoma, unspecified, unspecified site; Z79.899 Other long term (current) drug therapy
CPT/HCPCS: 36415; 80053; 85025; 85652; 86140; 86200; 86235; 86431

== ENCOUNTER 2022-02-17 10:37 | Emergency (ER) | payer MEDICAID, SELFPAY ==
--- NOTE | ~2022-02-17 | XR_ITS ---
EXAMINATION: XR CHEST CLINICAL INFORMATION: Chest pain 2 days ago COMPARISON: 02/01/2022 TECHNIQUE: 2 views of the chest were obtained. FINDINGS: Lungs are clear. No focal consolidation or mass. Normal pulmonary vascularity. No pleural effusion or pneumothorax. Normal heart size. Right axillary surgical clips. Convex left thoracic scoliosis. XR/XR chest 2V IMPRESSION: No acute pulmonary disease.
--- NOTE | ~2022-02-17 | US_ITS ---
EXAMINATION: NONINVASIVE ASSESSMENT OF THE ARTERIES OF BOTH LOWER EXTREMITIES Danie Berumen MD CLINICAL INFORMATION: Bilateral cold lower extremities, right greater than left TECHNIQUE: Bilateral lower extremity duplex ultrasound was performed with velocity measurements and waveform analysis in the common femoral arteries, profunda femoris arteries, proximal mid and distal superficial femoral arteries, popliteal arteries and tibial vessels. This study was performed only at rest. COMPARISON: CT abdomen pelvis 10/29/2020 FINDINGS: Velocities in cm/sec and phasicity as well as the presence of plaque are reported below. RIGHT LEG: Plaque is present throughout with tight stenoses seen in the mid SFA. Multiphasic flow is seen down to the level of the SFA stenosis with monophasic flow noted below the level of the stenosis. Common Femoral: 169 Profunda Femoris: 190 Proximal SFA: 63 Mid SFA: 409 Distal SFA: 24 Popliteal: 17 Posterior tibial: 16 Peroneal: 8 LEFT LEG: Scattered plaque present throughout. Biphasic flow is seen throughout. Common Femoral: 104 Profunda Femoris: 48 Proximal SFA: 50 Mid SFA: 39 Distal SFA: 36 Popliteal: 25 Posterior tibial: 35 Peroneal: 22 US/US arterial duplex LE BI IMPRESSION: 1. On the right, there is common femoral and profunda femoris disease with a tight SFA stenosis and monophasic flow noted below that level. 2. On the left, biphasic flow noted throughout flow is decreased. Review of prior CT from 10/29/2020 reveals extensive calcification at the aortic bifurcation and proximal common iliac arteries, left greater than right indicative of some element of inflow disease.
--- NOTE | ~2022-02-17 | US_ITS ---
EXAMINATION: US VENOUS ULTRASOUND WITH DOPPLER LOWER EXTREMITY, BILATERAL CLINICAL INFORMATION: Leg pain with cramps COMPARISON: None TECHNIQUE: Ultrasound of the deep veins is performed from the hip to the calf with compression sonography and color and pulse Doppler assessment. Spectral analysis with color-flow imaging is performed. FINDINGS: RIGHT: There is normal venous compression and respiratory variation and augmented flow. The visualized common femoral vein, superficial femoral vein, profunda femoral vein, popliteal vein, and the trifurcation region shows no evidence of deep venous thrombosis. There is no significant popliteal fossa cyst. LEFT: There is normal venous compression and respiratory variation and augmented flow. The visualized common femoral vein, superficial femoral vein, profunda femoral vein, popliteal vein, and the trifurcation region shows no evidence of deep venous thrombosis. There is no significant popliteal fossa cyst. If the patient's symptoms persist, followup ultrasound in 5 days 7 days might be of value to exclude proximal propagation from a non-visualized calf vein. US/US venous duplex LE BI IMPRESSION: No DVT demonstrated in either lower extremity.
[2022-02-17 11:35] VITALS: BP 126/77; PULSE 74; RESP 17; TEMP 36.6; O2SAT 98; BMI 27.4
--- NOTE | 2022-02-17 11:39 | ECG_ITS ---
Test Reason : chest pain days ago Blood Pressure : / mmHG Vent. Rate : 065 BPM Atrial Rate : 065 BPM P-R Int : 162 ms QRS Dur : 104 ms QT Int : 404 ms P-R-T Axes : 067 -38 045 degrees QTc Int : 420 ms Normal sinus rhythm Left axis deviation Incomplete right bundle branch block Moderate voltage criteria for LVH, may be normal variant ( R in aVL , [place] product ) Septal infarct (cited on or before 25-AUG-2021) Abnormal ECG When compared with ECG of 18-DEC-2021 18:02, No significant change was found Referred By: Generic ED Physician Electronically Signed By:Ruddy Larios
[2022-02-17 12:53] LABS: MANUAL DIFF FLAG NO
[2022-02-17 12:56] LABS: Basophils Percent Auto 0.2 % (0-2); Eosinophils Absolute Auto 0.1 X10*3/uL (0.0-0.4); Eosinophils Percent Auto 0.6 % (0-4); Hematocrit 38.1 % (37.0-47.0); Hemoglobin 12.1 g/dl (12.0-16.0); Imm Gran Abs Auto 0.02 X10*3/uL (0.00-0.03); Imm Gran Pct Auto 0.2 % (0.0-0.4); Lymphocytes Absolute Auto 3.1 X10*3/uL (1.2-4.9); Mean Corpuscular HGB Conc 31.8 g/dl (31.0-35.0); Mean Corpuscular Hemoglobin 29.6 pg (27.0-33.0); Mean Corpuscular Volume 93.2 fL (80.0-98.0); Mean Platelet Volume 9.6 fL (9.4-12.3); Monocytes Absolute Auto 0.4 X10*3/uL (0.1-1.2); Monocytes Percent Auto 3.9 % (2-11); Neutrophils Absolute Auto 5.8 x10*3/uL (2.0-8.3); Neutrophils Percent Auto 62.1 % (45-73); Platelet Count 305 X10*3/uL (160-400); Red Blood Count 4.09 X10*6/uL (4.20-5.50); Red Cell Distribution Width 14.1 % (11.0-16.0); White Blood Count 9.3 X10*3/uL (4.8-10.8)
[2022-02-17 13:17] LABS: Alanine Aminotransferase 14 U/L (0-31); Albumin Level 4.4 g/dL (3.5-5.0); Alkaline Phosphatase 66 U/L (39-117); Anion Gap 12 (12-20); Aspartate Amino Transferase 12 U/L (5-31); Bilirubin Direct 0.2 mg/dL (0.0-0.5); Bilirubin Total 0.4 mg/dL (0.0-1.0); Blood Urea Nitrogen 11 mg/dL (9-16); Calcium 9.6 mg/dL (8.4-10.2); Carbon Dioxide 26 mmol/L (22-29); Chloride 103 mmol/L (96-108); Estimated Glomerular Filt Rate > 60; Glucose Random 84 mg/dL (60-115); Lipase 26 U/L (8-78); Potassium 4.1 mmol/L (3.3-5.1); Sodium 137 mmol/L (135-145); Total Protein 9.3 g/dL (6.5-8.0)
[2022-02-17 13:19] LABS: COVID-19 Test Negative (Negative)
[2022-02-17 13:19] LABS: Troponin-I High Sensitivity < 3.5 ng/L (<3.5-17.0)
--- NOTE | 2022-02-17 21:25 | ED_ITS ---
HPI - General Adult General Chief complaint: General Medical Stated complaint: R side foot numbness/cramping Time Seen by Provider: 02/17/22 11:43 Source: patient Mode of arrival: ambulatory Limitations: no limitations History of Present Illness HPI narrative: 46-YEAR-OLD FEMALE WITH PMH OF lUPUS,hODKINS dISEASE, AND dvts PRESENTS TO THE ED FOR RIGHT LOWER EXTREMITY CRAMPING AND PAIN SINCE THIS MORNING. PATIENT STATES PAINFUL TO TOUCH. PATIENT DENIES ANY TRAUMA TO THE RIGHT LOWER EXTREMITY. Related Data Home Medications Medication Instructions Recorded Confirmed benztropine 0.5 mg tablet 0.5 mg PO DAILY 05/01/20 01/26/22 risperidone 1 mg tablet 1 mg PO BEDTIME 05/01/20 01/26/22 alprazolam 2 mg tablet (Xanax) 2 mg PO BEDTIME PRN INSOMINIA, 09/17/21 02/15/22 ANXITEY albuterol sulfate 90 mcg/actuation 2 puff PO Q4-6H PRN Wheezing 10/02/21 02/15/22 aerosol inhaler (ProAir HFA) cyclobenzaprine 5 mg tablet 1 tab PO TID PRN muscle spasm 10/02/21 01/26/22 diclofenac sodium 1 % topical gel 4 g topical BID 10/02/21 01/26/22 duloxetine 60 mg capsule,delayed 1 cap PO BID 10/02/21 02/15/22 release famotidine 20 mg tablet 1 tab PO BID@1200,2100 10/02/21 01/26/22 ferrous sulfate 325 mg (65 mg 1 tab PO QAM 10/02/21 01/26/22 iron) tablet (FeroSul) hydroxychloroquine 200 mg tablet 1 tab PO QAM 10/02/21 01/26/22 methotrexate sodium 2.5 mg tablet 4 tab PO Q14D 10/02/21 01/26/22 abatacept 125 mg/mL subcutaneous 125 mg subcut Q2W 10/22/21 02/15/22 auto-injector (Orencia ClickJect) docusate sodium 100 mg tablet 100 mg PO BID PRN Constipation 10/22/21 01/26/22 gabapentin 400 mg capsule 400 mg PO TID 10/22/21 01/26/22 gabapentin 400 mg capsule 400 mg PO TID PRN Pain 10/22/21 01/26/22 oxycodone-acetaminophen 5 mg-325 1 tab PO Q8H PRN pain 10/22/21 01/26/22 mg tablet (Percocet) prednisone 10 mg tablet 20 mg PO DAILY 10/22/21 02/15/22 risperidone 1 mg tablet 0.5 mg PO DAILY PRN Agitation 10/22/21 01/26/22 trazodone 150 mg tablet 1 tab PO BEDTIME PRN Sleep 10/22/21 01/26/22 Previous Rx's Medication Instructions Recorded adhesive bandage 1 #20 ea 05/21/20 folic acid 1 mg tablet 1 mg PO QAM #90 tabs 02/11/21 syringe with needle, safety 1 mL #50 ea 02/11/21 28 gauge x 1/2 (Monoject TB Safety Syringe) baclofen 5 mg tablet 5 mg PO TID PRN Muscle spasms #10 09/08/21 tabs ursodiol 500 mg tablet 500 mg PO BID #90 tabs 10/08/21 oxycodone 5 mg tablet 5 mg PO TID PRN pain #12 tabs 10/22/21 oxycodone 5 mg capsule 5 mg PO Q8H PRN pain #9 caps 11/13/21 pantoprazole 40 mg tablet,delayed 40 mg PO DAILY #90 tabs 12/07/21 release enoxaparin 80 mg/0.8 mL 80 mg (0.8 mL) subcut DAILY dvt in 01/26/22 subcutaneous syringe (Lovenox) right lower extremity failed eliquis #8 mL aspirin 81 mg capsule 81 mg PO DAILY 14 days #14 caps 02/18/22 Allergies Allergy/AdvReac Type Severity Reaction Status Date / Time almond [ALMONDS] Allergy Severe ANAPHYLAXIS Verified 01/26/22 10:40 adhesive tape [ADHESIVE TAPE] Allergy Intermediate RASH Verified 01/26/22 10:40 morphine [MORPHINE] Allergy Intermediate GI UPSET, Verified 01/26/22 10:40 difficulty breathing tramadol [TRAMADOL] AdvReac Unknown NAUSEA & Verified 01/26/22 10:40 VOMITING Review of Systems Review of Systems: rIGHT LOWER EXTREMITY CRAMPING, PAIN AND TENDER TOUCH Yes all other systems are reviewed and are negative PMFSH Past Medical History Medical History (Updated 02/18/22 @ 00:43 by SAFIA Sneed) Acute arthritis Bleeding hemorrhoid Bone cancer Cancer of heart Chronic GERD De Quervain's disease (tenosynovitis) Degeneration of intervertebral disc at C4-C5 level Degeneration, intervertebral disc, lumbar Depressive disorder Esophageal dysphagia Fibromyalgia Gallstones History of chemotherapy History of chemotherapy Hodgkin disease Lung cancer Nocturia Osteoarthritis of spine with radiculopathy, lumbar region Rheumatoid arthritis involving multiple sites Seropositive rheumatoid arthritis Stress incontinence in female Systemic lupus erythematosus Urgency-frequency syndrome Vitamin D deficiency Surgical History H/O tubal ligation History of biopsy History of esophagogastroduodenoscopy (EGD) History of lymph node dissection of left axilla History of repair of inguinal hernia Hx laparoscopic cholecystectomy Hx of colonoscopy Hx of endoscopy Family History Family History Maternal Grandmother Ovarian cancer Social History Social History Household Members: Spouse Housing: Apartment Are you a primary childcare administrator to a significant other at home: No Do 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 have 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 or 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 home 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) Alcohol intake: current Alcohol intake frequency: does not drink Patient Tobacco Use Status: Current everyday Tobacco user Tobacco use type: Cigarette Substance Use Type: Marijuana Advance Directives: Yes Advance Directives on File: Yes Advance Directives Date on File: 09/23/20 service: No Current occupational status: disabled 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 Physical Exam ED Vital Signs: Vital Signs - 24 hr 02/17/22 11:35 02/18/22 00:42 Temperature 98 F Pulse Rate 74 79 Respiratory Rate 17 15 Blood Pressure 126/77 Pulse Oximetry 98 98 Oxygen Delivery Method Room Air Room Air BMI result Body Mass Index 27.4 Const General: cooperative, healthy appearing, comfortable, no acute distress, well developed, alert, awake and Physically active Orientation/consciousness: patient oriented x3 HENMT Head: Yes normal to inspection, Yes No palpable skull fracture present, Yes normocephalic, Yes atraumatic and No abrasion Eyes General: appearance normal, both eyes and all related structures Neck Neck: Yes normal visual inspection, Yes full ROM, Yes no lymphadenopathy, Yes no meningeal signs, Yes trachea midline, Yes supple, No anterior neck swelling and No tender Chest Chest palpation & inspection: normal inspection of the chest and normal palpation of entire chest wall Resp Effort & Inspection: normal respiratory effort and able to speak in complete sentences Cardio Jugular venous distension: no JVD Heart sounds: S1 normal heart sound present and S2 normal heart sound present GI Inspection: Yes normal to inspection and No abdominal wall ecchymosis Palpation (GI): Soft to palpation, not firm, nontender, no guarding and not rigid General: No CVA tenderness and Yes no CVA tenderness Back/Spine/Pelvis Back: no CVA tenderness, No CVA tenderness and No back tenderness Skin General skin exam: no rashes or lesions noted and elasticity normal Neuro General: patient oriented x3, gait normal, tone normal, no meningeal signs and CN's II-XI intact bilaterally Extrem Other: rIGHT LOWER EXTREMITY: POSTERIOR LEG AND FOOT VERY TENDER TO TOUCH ON PALPATION. COOLER THAN LEFT LOWER EXTREMITY. NEURO EXAM INTACT. Motor exam intact LEFT LOWER EXTREMITY: NEGATIVE FOR ANY TENDERNESS OR PAIN. WARMer TO TOUCH THAN RIGHT LOWER EXTREMITY. neuro and motor exam intact Psych Appearance: grossly normal, well kempt and not disheveled Course Course Course Narrative: PATIENT STATES SHE HAS CHEST PAIN 4 DAYS AGO THAT RESOLVED. PATIENT STATES NO CHEST PAIN FOR THE PAST 4 DAYS SINCE THAT 1 EPISODE 4 days ago. PATIENT RECEIVED RAPID MEDICAL SCREENING WHICH INCLUDED THE 1ST TROPONIN PER WILL DO 2ND TROPONIN AND COAGS. WE WILL SEND FOR ARTERIAL AND VENOUS BILATERAL ULTRASOUND. Reevaluation(s) Reevaluation #1: Venous ultrasound came back negative for DVT. EKG negative STEMI troponins negative .chest x-ray normal. not suspecting PE. Patient denies any chest pain in the ED. Patient denies any pleurisy. Patient is on Lovenox. Arterial ultrasound of legs show signs of peripheral vascular/arterial disease. Not able to find pulses on right foot with doppler. Left foot positive for PT pulse with Doppler. Arterial ultrasound negative for thrombus or arterial occlusion. Ultrasound discussed with Dr. Vivar and he evaluated patient. Hr States patient could be discharged recommend immediate follow-up with vascular surgeon Dr. Hughes. Recommend adding aspirin to patient Lovenox. Patient informed the necessity to immediate follow-up for treatment for possible stent placement in the future. Patient informed to stop smoking and change diet to increase chances of not leading to total occlusion caused by plaques. Patient informed to return to the ED immediately if leg pain worsens, bluish purple/black discoloration of extremities, coldness, numbness, any other concerning symptoms Medical Decision Making MDM Narrative Medical decision making narrative: Periperheal Vascular/Arterial Lab Data Result diagrams: 02/17/22 12:44 02/17/22 12:44 Labs: Lab Results 02/17/22 02/17/22 02/17/22 Range/Units 12:43 12:44 12:44 WBC 9.3 (4.8-10.8) X10*3/uL RBC 4.09 L (4.20-5.50) X10*6/uL Hgb 12.1 (12.0-16.0) g/dl Hct 38.1 (37.0-47.0) % MCV 93.2 (80.0-98.0) fL MCH 29.6 (27.0-33.0) pg MCHC 31.8 (31.0-35.0) g/dl RDW 14.1 (11.0-16.0) % Plt Count 305 (160-400) X10*3/uL MPV 9.6 (9.4-12.3) fL Immature Gran % (Auto) 0.2 (0.0-0.4) % Neut % (Auto) 62.1 (45-73) % Lymph % (Auto) 33.0 (20-40) % [place] % (Auto) 3.9 (2-11) % Eos % (Auto) 0.6 (0-4) % Baso % (Auto) 0.2 (0-2) % Lymph # (Auto) 3.1 (1.2-4.9) X10*3/uL [place] # (Auto) 0.4 (0.1-1.2) X10*3/uL Eos # (Auto) 0.1 (0.0-0.4) X10*3/uL Baso # (Auto) 0.0 (0.0-0.2) X10*3/uL Abs Immat Gran (auto) 0.02 (0.00-0.03) X10*3/uL Absolute Neuts (auto) 5.8 (2.0-8.3) x10*3/uL Absolute Nucleated RBC 0.000 (0.0-0.012) X10*3/uL Nucleated RBC % (auto) 0.0 (0.0-0.2) /100WBC PT (10.0-13.1) SEC INR (0.9-1.1) APTT (24.1-38.0) SEC Sodium 137 (135-145) mmol/L Potassium 4.1 (3.3-5.1) mmol/L Chloride 103 (96-108) mmol/L Carbon Dioxide 26 (22-29) mmol/L Anion Gap 12 (12-20) BUN 11 (9-16) mg/dL Creatinine 0.81 (0.5-1.4) mg/dL Estim Creat Clear Calc 92.0 Estimated GFR > 60 Random Glucose 84 (60-115) mg/dL Calcium 9.6 (8.4-10.2) mg/dL Total Bilirubin 0.4 (0.0-1.0) mg/dL Direct Bilirubin 0.2 (0.0-0.5) mg/dL AST 12 (5-31) U/L ALT 14 (0-31) U/L Alkaline Phosphatase 66 (39-117) U/L Total Creatine Kinase (26-140) U/L Troponin I High Sens (<3.5-17.0) ng/L Total Protein 9.3 H (6.5-8.0) g/dL Albumin 4.4 (3.5-5.0) g/dL Lipase 26 (8-78) U/L COVID-19 (VANGIE) Negative (Negative) COVID-19 Clin Com See Note 02/17/22 02/17/22 02/17/22 Range/Units 12:44 21:36 21:37 WBC (4.8-10.8) X10*3/uL RBC (4.20-5.50) X10*6/uL Hgb (12.0-16.0) g/dl Hct (37.0-47.0) % MCV (80.0-98.0) fL MCH (27.0-33.0) pg MCHC (31.0-35.0) g/dl RDW (11.0-16.0) % Plt Count (160-400) X10*3/uL MPV (9.4-12.3) fL Immature Gran % (Auto) (0.0-0.4) % Neut % (Auto) (45-73) % Lymph % (Auto) (20-40) % [place] % (Auto) (2-11) % Eos % (Auto) (0-4) % Baso % (Auto) (0-2) % Lymph # (Auto) (1.2-4.9) X10*3/uL [place] # (Auto) (0.1-1.2) X10*3/uL Eos # (Auto) (0.0-0.4) X10*3/uL Baso # (Auto) (0.0-0.2) X10*3/uL Abs Immat Gran (auto) (0.00-0.03) X10*3/uL Absolute Neuts (auto) (2.0-8.3) x10*3/uL Absolute Nucleated RBC (0.0-0.012) X10*3/uL Nucleated RBC % (auto) (0.0-0.2) /100WBC PT 10.7 (10.0-13.1) SEC INR 0.9 (0.9-1.1) APTT 36.2 (24.1-38.0) SEC Sodium (135-145) mmol/L Potassium (3.3-5.1) mmol/L Chloride (96-108) mmol/L Carbon Dioxide (22-29) mmol/L Anion Gap (12-20) BUN (9-16) mg/dL Creatinine (0.5-1.4) mg/dL Estim Creat Clear Calc Estimated GFR Random Glucose (60-115) mg/dL Calcium (8.4-10.2) mg/dL Total Bilirubin (0.0-1.0) mg/dL Direct Bilirubin (0.0-0.5) mg/dL AST (5-31) U/L ALT (0-31) U/L Alkaline Phosphatase (39-117) U/L Total Creatine Kinase (26-140) U/L Troponin I High Sens < 3.5 < 3.5 (<3.5-17.0) ng/L Total Protein (6.5-8.0) g/dL Albumin (3.5-5.0) g/dL Lipase (8-78) U/L COVID-19 ([facility]ANGIE) (Negative) COVID-19 Clin Com 07/20/22 Range/Units 21:37 WBC (4.8-10.8) X10*3/uL RBC (4.20-5.50) X10*6/uL Hgb (12.0-16.0) g/dl Hct (37.0-47.0) % MCV (80.0-98.0) fL MCH (27.0-33.0) pg MCHC (31.0-35.0) g/dl RDW (11.0-16.0) % Plt Count (160-400) X10*3/uL MPV (9.4-12.3) fL Immature Gran % (Auto) (0.0-0.4) % Neut % (Auto) (45-73) % Lymph % (Auto) (20-40) % [place] % (Auto) (2-11) % Eos % (Auto) (0-4) % Baso % (Auto) (0-2) % Lymph # (Auto) (1.2-4.9) X10*3/uL [place] # (Auto) (0.1-1.2) X10*3/uL Eos # (Auto) (0.0-0.4) X10*3/uL Baso # (Auto) (0.0-0.2) X10*3/uL Abs Immat Gran (auto) (0.00-0.03) X10*3/uL Absolute Neuts (auto) (2.0-8.3) x10*3/uL Absolute Nucleated RBC (0.0-0.012) X10*3/uL Nucleated RBC % (auto) (0.0-0.2) /100WBC PT (10.0-13.1) SEC INR (0.9-1.1) APTT (24.1-38.0) SEC Sodium (135-145) mmol/L Potassium (3.3-5.1) mmol/L Chloride (96-108) mmol/L Carbon Dioxide (22-29) mmol/L Anion Gap (12-20) BUN (9-16) mg/dL Creatinine (0.5-1.4) mg/dL Estim Creat Clear Calc Estimated GFR Random Glucose (60-115) mg/dL Calcium (8.4-10.2) mg/dL Total Bilirubin (0.0-1.0) mg/dL Direct Bilirubin (0.0-0.5) mg/dL AST (5-31) U/L ALT (0-31) U/L Alkaline Phosphatase (39-117) U/L Total Creatine Kinase 30 (26-140) U/L Troponin I High Sens (<3.5-17.0) ng/L Total Protein (6.5-8.0) g/dL Albumin (3.5-5.0) g/dL Lipase (8-78) U/L COVID-19 ([facility]IE) (Negative) COVID-19 Clin Com ECG Data Interpretation: Normal sinus rhythm. Ventricular rate 65. Peer interval 162. QRS 104. QTC 420. Negative STEMI Discharge Plan Discharge Clinical Impression: Peripheral vascular disease, Claudication Patient Disposition: Home, Self-Care Instructions: Peripheral Vascular Disease (ED), Peripheral Artery Disease (ED) Additional Instructions: Eileen s?ntomas se deben a moira enfermedad arterial perif?vitaly que puede provocar calambres y dolor en las extremidades inferiores. Deber? dejar de fumar y ser? dado de johan con aspirina. Regrese al servicio de urgencias de inmediato si empeora el dolor, decoloraci?n azulada elda/morada de las extremidades inferiores, frialdad de las extremidades inferiores, disminuci?n de la sensibilidad, entumecimiento o cualquier otro s?ntoma preocupante. Necesitar? un seguimiento cercano con cirug?a vascular para kessler evaluaci?n. Prescriptions: New aspirin 81 mg capsule 81 mg PO DAILY 14 Days Qty: 14 0RF No Action (DME) adhesive bandage 1 bandage See Rx Instructions .ROUTE .MEDSUPPLY Qty: 20 5RF Rx Instructions: Use after Methotrexate injection pantoprazole 40 mg tablet,delayed release (DR/EC) 40 mg PO DAILY Qty: 90 1RF benztropine 0.5 mg Tablet 0.5 mg PO DAILY risperidone 1 mg Tablet 1 mg PO BEDTIME alprazolam [Xanax] 2 mg Tablet 2 mg PO BEDTIME PRN (Reason: INSOMINIA, ANXITEY) baclofen 5 mg tablet 5 mg PO TID PRN (Reason: Muscle spasms) Qty: 10 0RF gabapentin 400 mg capsule 400 mg PO TID PRN (Reason: Pain) gabapentin 400 mg capsule 400 mg PO TID trazodone 150 mg tablet 1 tab PO BEDTIME PRN (Reason: Sleep) risperidone 1 mg tablet 0.5 mg PO DAILY PRN (Reason: Agitation) docusate sodium 100 mg Tablet 100 mg PO BID PRN (Reason: Constipation) oxycodone-acetaminophen [Percocet] 5-325 mg tablet 1 tab PO Q8H PRN (Reason: pain) prednisone 10 mg tablet 20 mg PO DAILY Orencia ClickJect 125 mg/mL auto-injector 125 mg subcut Q2W oxycodone 5 mg tablet 5 mg PO TID PRN (Reason: pain) Qty: 12 0RF Rx Instructions: short course due to lupus exacerbation oxycodone 5 mg capsule 5 mg PO Q8H PRN (Reason: pain) Qty: 9 0RF enoxaparin [Lovenox] 80 mg/0.8 mL syringe 80 mg subcut DAILY Qty: 8 2RF famotidine 20 mg tablet 1 tab PO BID@1200,2100 methotrexate sodium 2.5 mg tablet 4 tab PO Q14D ferrous sulfate [FeroSul] 325 mg (65 mg iron) tablet 1 tab PO QAM hydroxychloroquine 200 mg tablet 1 tab PO QAM albuterol sulfate [ProAir HFA] 90 mcg/actuation HFA aerosol inhaler 2 puff PO Q4-6H PRN (Reason: Wheezing) cyclobenzaprine 5 mg tablet 1 tab PO TID PRN (Reason: muscle spasm) duloxetine 60 mg capsule,delayed release(DR/EC) 1 cap PO BID diclofenac sodium 1 % gel 4 g topical BID ursodiol 500 mg tablet 500 mg PO BID Qty: 90 1RF (DME) Monoject TB Safety Syringe 1 mL 28 gauge x 1/2 syringe See Rx Instructions .ROUTE .MEDSUPPLY Qty: 50 1RF Rx Instructions: As directed - use to inject Methorexate once per week folic acid 1 mg tablet 1 mg PO QAM Qty: 90 3RF Referrals: Frankie Hughes MD [Physician] - (Right leg cramping/pain due to claudication peripheral arterial disease.) Interventions: ED Discharge Assessment Last Done: 02/18/22 01:07 Discharge Date/Time: 02/18/22 01:07 Print Language: Turkish
[2022-02-17 21:57] LABS: INTERNATIONAL NORM RATIO 0.9 (0.9-1.1); Prothrombin Time 10.7 SEC (10.0-13.1)
[2022-02-17 21:59] LABS: Partial Thromboplastin Time 36.2 SEC (24.1-38.0)
[2022-02-17 22:07] LABS: Troponin-I High Sensitivity < 3.5 ng/L (<3.5-17.0)
[2022-02-17] MEDS: oxyCODONE HCl Immed Release 5 MG TABLET PO (23:32)
[2022-02-18 00:42] VITALS: PULSE 79; RESP 15; O2SAT 98
== END 2022-02-18 01:07 | disposition home or self-care (01) ==
PROVIDERS: Physician Assistant; Emergency Provider Internal Medicine; PCP General Practice
DX: R07.89 Other chest pain (principal); I73.9 Peripheral vascular disease, unspecified; I87.8 Other specified disorders of veins; R60.0 Localized edema; R20.0 Anesthesia of skin; F17.210 Nicotine dependence, cigarettes, uncomplicated; F12.90 Cannabis use, unspecified, uncomplicated; Z20.822 Contact with and (suspected) exposure to COVID-19; Z71.6 Tobacco abuse counseling; Z79.899 Other long term (current) drug therapy
CPT/HCPCS: 36415; 71046; 80048; 80076; 82550; 83690; 84484; 85025; 85610; 85730; 87635; 93005; 93925; 93970; 99284

== ENCOUNTER → 2022-03-01 10:48 | Outpatient (BNVA) | payer MEDICAID, SELFPAY | PROVIDERS: PCP General Practice; Visit Provider Physician Assistant | DX: S50.01XA Contusion of right elbow, initial encounter (principal) | CPT/HCPCS: 99212 ==

== ENCOUNTER → 2022-03-02 09:03 | Outpatient (BNVA) | payer MEDICAID, SELFPAY | PROVIDERS: PCP General Practice; Visit Provider Internal Medicine Pulmonary Disease | DX: G47.33 Obstructive sleep apnea (adult) (pediatric) (principal); R06.09 Other forms of dyspnea; J43.9 Emphysema, unspecified; I73.9 Peripheral vascular disease, unspecified | CPT/HCPCS: 99202 ==

== ENCOUNTER 2022-03-09 07:55 | Outpatient (REF) | payer MEDICAID, SELFPAY ==
--- NOTE | ~2022-03-09 | CT_ITS ---
EXAMINATION: CTA ABDOMEN, PELVIS AND LOWER EXTREMITY RUNOFF WITH CONTRAST HISTORY: Peripheral vascular disease. DESCRIPTION: Routine abdominal aorta and lower extremity runoff CTA protocol with contrast was performed. 100 mL of Omnipaque 350 was administered. Images were reviewed and processed on an independent dedicated 3-D workstation and 3-D images were reconstructed with concurrent radiologist supervision and subsequently interpreted. The images were reviewed and postprocessed on a dedicated 3-D workstation. This CT examination was performed using dose optimization techniques as appropriate, variously including the following: *Automated exposure control. *Adjustment of mA and/or kV according to patient size (this includes techniques or standardized protocols for targeted exams where dose is matched to indication/reason for exam, i.e., extremities or head). *Use of iterative reconstruction technique. COMPARISON: Arterial duplex on 02/17/2022. FINDINGS: VASCULAR: Heart: The visualized heart is normal in size. No pericardial effusion. Abdominal Aorta: Normal caliber, widely patent. Moderate atherosclerosis. Mesenteric Arteries:The celiac axis, superior mesenteric artery and inferior mesenteric artery are patent. Renal Arteries: The right renal artery is widely patent without evidence of hemodynamically significant stenosis. The left renal artery is widely patent without evidence of hemodynamically significant stenosis. Inferior Vena Cava: Normal caliber. Right Lower Extremity: Common iliac artery: Mild stenosis distally related to calcified plaque. External iliac artery: Mild multifocal disease. No hemodynamically significant stenosis. Internal iliac artery: Normal caliber, widely patent. Common femoral artery: Mild disease. No hemodynamically significant stenosis. Superficial femoral artery: There is focal high-grade stenosis of the mid SFA on series 8 image 10:15. Profunda femoris artery: Normal caliber, widely patent. Popliteal artery: Normal caliber, widely patent. Anterior tibial artery: Patent proximally, seen to the ankle. Posterior tibial artery: Appears patent to the foot. Peroneal artery: Patent, seen to the ankle. Left Lower Extremity: Common iliac artery: Occluded. External iliac artery: Mild multifocal disease, reconstituted via collateral flow. Internal iliac artery: Patent, normal caliber. Common femoral artery: Mild stenosis related to plaque. Superficial femoral artery: Normal caliber, widely patent. Profunda femoris artery: Normal caliber, widely patent. Popliteal artery: Normal caliber, widely patent. Anterior tibial artery: Normal caliber, widely patent. Posterior tibial artery: Occluded. Peroneal artery: Dominant flow to the foot. Widely patent. NONVASCULAR: Lung Bases: The visualized lung bases are unremarkable. Liver: The liver is normal in size, shape, and attenuation. No focal hepatic lesion or biliary ductal dilatation is present. Gallbladder: Post cholecystectomy. Pancreas: Unremarkable. Spleen: Unremarkable. Adrenal Glands: Unremarkable. Kidneys and Ureters: The kidneys are normal in size, shape, and attenuation. No hydronephrosis, hydroureter, or calculi seen. No perinephric stranding. Bladder: Unremarkable. Gastrointestinal Tract: No evidence of obstruction. Mild colonic diverticulosis. Abdominal Wall: No large hernias. Lymph Nodes: Normal. Pelvis: Trace pelvic free fluid. Osseous Structures: No suspicious lesions. CT/CT angio abd aorta runoff IMPRESSION: RIGHT LOWER EXTREMITY: Focal high-grade stenosis of the mid SFA. Runoff appears primarily via the posterior tibial artery. The anterior tibial artery is seen to the level of the ankle. LEFT LOWER EXTREMITY: Occluded left common iliac artery. The external iliac artery is patent and is likely supplied via collateral flow from the internal iliac artery. The posterior tibial artery appears occluded. Flow to the foot is primarily via the peroneal artery.
[2022-03-09] MEDS: iohexoL 350 MG/ML 100 ML INFUS..BTL IV (09:23)
== END 2022-03-09 07:56 | disposition home or self-care (01) ==
LOC: HO.CT 07:55
PROVIDERS: PCP General Practice; Visit Provider Surgery Vascular Surgery
DX: I73.9 Peripheral vascular disease, unspecified (principal)
CPT/HCPCS: 75635; Q9967

== ENCOUNTER 2022-03-28 10:25 | Emergency (ER) | payer MEDICAID, SELFPAY ==
--- NOTE | ~2022-03-28 | US_ITS ---
EXAMINATION: US VENOUS WITH DOPPLER UPPER EXTREMITY, RIGHT CLINICAL INFORMATION: Pain and swelling. Study of December 18, 2021 demonstrated deep venous thrombosis within the right internal jugular and subclavian veins. COMPARISON: January 26, 2022 and December 18, 2021 TECHNIQUE: Ultrasound of the upper extremity is performed using compression sonography and color and pulse Doppler flow with assessment of augmentation of flow. There is also imaging and Doppler assessment of the jugular and subclavian veins. Spectral analysis with color-flow imaging is performed. FINDINGS: Respiratory variation, normal compression, and augmented flow are noted throughout the upper extremity including the axillary, brachial, cubital, and radial and ulnar veins. There is normal flow in the internal jugular and subclavian veins. There is no visible deep or superficial thrombophlebitis. No significant vessel wall thickening and synechiae identified. US/US venous duplex UE RT IMPRESSION: No acute DVT demonstrated in the right upper extremity
[2022-03-28 10:26] VITALS: BP 119/83; PULSE 92; RESP 18; TEMP 36.6; O2SAT 98; BMI 30.7
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
[2022-03-28 11:12] LABS: MANUAL DIFF FLAG NO
[2022-03-28 11:13] LABS: Basophils Percent Auto 0.4 % (0-2); Eosinophils Absolute Auto 0.1 X10*3/uL (0.0-0.4); Eosinophils Percent Auto 1.2 % (0-4); Hematocrit 35.7 % (37.0-47.0); Hemoglobin 11.6 g/dl (12.0-16.0); Imm Gran Abs Auto 0.01 X10*3/uL (0.00-0.03); Imm Gran Pct Auto 0.2 % (0.0-0.4); Lymphocytes Absolute Auto 2.4 X10*3/uL (1.2-4.9); Lymphocytes Percent Auto 41.3 % (20-40); Mean Corpuscular HGB Conc 32.5 g/dl (31.0-35.0); Mean Corpuscular Hemoglobin 29.7 pg (27.0-33.0); Mean Corpuscular Volume 91.5 fL (80.0-98.0); Mean Platelet Volume 9.6 fL (9.4-12.3); Monocytes Absolute Auto 0.4 X10*3/uL (0.1-1.2); Monocytes Percent Auto 6.1 % (2-11); Neutrophils Absolute Auto 2.9 x10*3/uL (2.0-8.3); Neutrophils Percent Auto 50.8 % (45-73); Platelet Count 263 X10*3/uL (160-400); Red Cell Distribution Width 14.2 % (11.0-16.0); White Blood Count 5.7 X10*3/uL (4.8-10.8)
[2022-03-28 11:23] LABS: Prothrombin Time 11.1 SEC (10.0-13.1)
[2022-03-28 11:26] LABS: Partial Thromboplastin Time 37.3 SEC (26.0-36.4)
[2022-03-28 11:27] LABS: Anion Gap 15 (12-20); Blood Urea Nitrogen 10 mg/dL (9-16); Calcium 8.8 mg/dL (8.4-10.2); Carbon Dioxide 24 mmol/L (22-29); Chloride 103 mmol/L (96-108); Creatinine Clr Calc Pharmacy 104.7; Estimated Glomerular Filt Rate > 60; Glucose Random 89 mg/dL (60-115); Potassium 3.7 mmol/L (3.3-5.1); Sodium 138 mmol/L (135-145)
[2022-03-28 11:35] LABS: Troponin-I High Sensitivity < 3.5 ng/L (<3.5-17.0)
[2022-03-28] MEDS: oxyCODONE HCl Immed Release 5 MG TABLET 10 MG PO (13:03)
[2022-03-28 14:11] LABS: COVID-19 Test Negative (Negative)
== END 2022-03-28 15:33 | disposition home or self-care (01) ==
PROVIDERS: Nurse Practitioner Family; Emergency Provider Emergency Medicine; PCP General Practice
DX: M54.12 Radiculopathy, cervical region (principal); R60.0 Localized edema; F17.210 Nicotine dependence, cigarettes, uncomplicated; Z20.822 Contact with and (suspected) exposure to COVID-19; Z71.6 Tobacco abuse counseling; Z79.899 Other long term (current) drug therapy
CPT/HCPCS: 36415; 80048; 84484; 85025; 85610; 85730; 87635; 93971; 99284

== ENCOUNTER → 2022-03-29 12:31 | Outpatient (BNVA) | payer MEDICAID, SELFPAY | PROVIDERS: PCP General Practice; Visit Provider Internal Medicine Rheumatology | DX: M05.9 Rheumatoid arthritis with rheumatoid factor, unspecified (principal); I73.9 Peripheral vascular disease, unspecified; Z79.899 Other long term (current) drug therapy | CPT/HCPCS: 99212 ==

== ENCOUNTER → 2022-04-13 09:36 | Outpatient (BNVA) | payer MEDICAID, SELFPAY | PROVIDERS: PCP General Practice; Visit Provider Surgery Vascular Surgery | DX: I73.9 Peripheral vascular disease, unspecified (principal) | CPT/HCPCS: 99212 ==

== ENCOUNTER 2022-04-18 09:34 | Emergency (ER) | payer MEDICAID, SELFPAY ==
--- NOTE | ~2022-04-18 | US_ITS ---
STUDY: Arterial Doppler ultrasound of the right upper extremity. HISTORY: Pain and swelling. COMPARISON: None. TECHNIQUE: Grayscale, color, and pulsed Doppler images of the right upper extremity were obtained. FINDINGS: Normal multiphasic arterial waveforms are present. No atherosclerotic disease or focal stenosis is visualized. Velocities are as follows (cm/sec): Common carotid artery proximally: 125 cm/sec Subclavian artery medially: 77 cm/sec Subclavian artery lateral: 66 cm/sec Axillary artery: 71 cm/sec Brachial artery upper: 77 cm/sec Brachial artery middle: 69 cm/sec Brachial artery lower: 63 cm/sec Radial artery: 45 cm/sec Ulnar artery: 44 cm/sec US/US arterial duplex UE RT IMPRESSION: No hemodynamically significant stenoses in the right upper extremity.
--- NOTE | ~2022-04-18 | US_ITS ---
EXAMINATION: US VENOUS WITH DOPPLER UPPER EXTREMITY, RIGHT CLINICAL INFORMATION: Edema, swelling and pain. COMPARISON: 03/28/2022. TECHNIQUE: Ultrasound of the upper extremity is performed using compression sonography and color and pulse Doppler flow with assessment of augmentation of flow. There is also imaging and Doppler assessment of the jugular and subclavian veins. Spectral analysis with color-flow imaging is performed. FINDINGS: Respiratory variation, normal compression, and augmented flow are noted throughout the upper extremity including the axillary, brachial, cubital, and radial and ulnar veins. There is normal flow in the internal jugular and subclavian veins. There is no visible deep or superficial thrombophlebitis. If the patient's symptoms progress, a followup ultrasound in 5 -7 days might be of value to exclude proximal propagation from a nonvisualized distal arm vein. US/US venous duplex UE RT IMPRESSION: No DVT demonstrated in the right upper extremity.
[2022-04-18 10:16] VITALS: BP 123/67; PULSE 70; RESP 18; TEMP 36.9; O2SAT 97; BMI 44.3
--- NOTE | 2022-04-18 14:12 | ED.EXTPRO ---
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 Symptoms started 2 months ago, patient is known to have carpal tunnel syndrome, also known to have severe arthritis patient is on Lovenox for anticoagulation for severe peripheral vascular disease. Patient declined any history of trauma to the right breast or upper extremity. Related Data Home Medications Medication Instructions Recorded Confirmed benztropine 0.5 mg tablet 0.5 mg PO DAILY 05/01/20 03/29/22 albuterol sulfate 90 mcg/actuation 2 puff PO Q4-6H PRN Wheezing 10/02/21 03/29/22 aerosol inhaler (ProAir HFA) duloxetine 60 mg capsule,delayed 1 cap PO BID 10/02/21 03/29/22 release famotidine 20 mg tablet 1 tab PO BID@1200,2100 10/02/21 03/29/22 ferrous sulfate 325 mg (65 mg 1 tab PO QAM 10/02/21 03/29/22 iron) tablet (FeroSul) docusate sodium 100 mg tablet 100 mg PO BID PRN Constipation 10/22/21 03/29/22 gabapentin 400 mg capsule 400 mg PO TID 10/22/21 03/29/22 risperidone 1 mg tablet 0.5 mg PO DAILY PRN Agitation 10/22/21 03/29/22 trazodone 150 mg tablet 1 tab PO BEDTIME PRN Sleep 10/22/21 03/29/22 alcohol swabs (Alcohol Prep Pads) 0 pad topical BID 03/01/22 alprazolam 1 mg tablet 1.5 mg PO BEDTIME PRN 03/01/22 03/29/22 nicotine 14 mg/24 hr daily 0 patch topical 03/01/22 transdermal patch hydrochlorothiazide 12.5 mg tablet 12.5 mg PO DAILY 03/02/22 prednisone 10 mg tablet 30 mg PO DAILY 03/29/22 03/29/22 Previous Rx's Medication Instructions Recorded adhesive bandage 1 #20 ea 05/21/20 folic acid 1 mg tablet 1 mg PO QAM #90 tabs 02/11/21 syringe with needle, safety 1 mL #50 ea 02/11/21 28 gauge x 1/2 (Monoject TB Safety Syringe) baclofen 5 mg tablet 5 mg PO TID PRN Muscle spasms #10 09/08/21 tabs ursodiol 500 mg tablet 500 mg PO BID #90 tabs 10/08/21 pantoprazole 40 mg tablet,delayed 40 mg PO DAILY #90 tabs 12/07/21 release enoxaparin 80 mg/0.8 mL 80 mg (0.8 mL) subcut DAILY dvt in 01/26/22 subcutaneous syringe (Lovenox) right lower extremity failed eliquis #8 mL aspirin 81 mg capsule 81 mg PO DAILY 14 days #14 caps 02/18/22 umeclidinium 62.5 mcg/actuation 1 inh inhalation DAILY 30 days #1 03/02/22 blister powder for inhalation ea (Incruse Ellipta) diclofenac sodium 1 % topical gel 4 g topical QID #100 grams 03/28/22 oxycodone 5 mg tablet 5 mg PO BID PRN pain #10 tabs 03/28/22 adalimumab 40 mg/0.4 mL 40 mg (0.4 mL) subcut Q2W #2 kits 03/29/22 subcutaneous pen kit (Humira(CF) Pen) methotrexate sodium 2.5 mg tablet 15 mg PO QWEEK #24 tabs 03/29/22 prednisone 10 mg tablet 10 mg PO BID #60 tabs 03/29/22 oxycodone 5 mg tablet 5 mg PO Q8H PRN pain #10 tabs 04/18/22 Allergies Allergy/AdvReac Type Severity Reaction Status Date / Time almond [ALMONDS] Allergy Severe ANAPHYLAXIS Verified 04/13/22 09:50 adhesive tape [ADHESIVE TAPE] Allergy Intermediate RASH Verified 04/13/22 09:50 morphine [MORPHINE] Allergy Intermediate GI UPSET, Verified 04/13/22 09:50 difficulty breathing tramadol [TRAMADOL] AdvReac Unknown NAUSEA & Verified 04/13/22 09:50 VOMITING Review of Systems Review of Systems: All other systems are reviewed and are negative Constitutional: Reports as per HPI and Reports no additional constitutional complaints Eyes: Reports as per HPI and Reports no additional eye complaints Reports system reviewed and no additional complaints, except as documented Cardiovascular: Reports as per HPI and Reports no additional cardiovascular complaints Respiratory: Reports as per HPI and Reports no additional respiratory complaints Gastrointestinal: Reports as per HPI and Reports no additional gastrointestinal complaints Genitourinary: Reports no additional female genitourinary complaints Musculoskeletal: Reports no additional musculoskeletal complaints Skin/Breast: Reports system reviewed and no additional complaints, except as docu Psychiatric: Reports no additional psychiatric complaints Endocrine: Reports no additional endocrine complaints Hematologic/Lymphatic: Reports no additional hematologic/lymphatic complaints Allergic/Immunologic: Reports no additional allergic/immunologic complaints Reports system reviewed and no additional complaints, except as documented and Reports Abnormal speech present [facility] Past Medical History Medical History Acute arthritis Bleeding hemorrhoid Bone cancer Cancer of heart Chronic GERD De Quervain's disease (tenosynovitis) Degeneration of intervertebral disc at C4-C5 level Degeneration, intervertebral disc, lumbar Depressive disorder Esophageal dysphagia Fibromyalgia Gallstones History of chemotherapy History of chemotherapy Hodgkin disease Lung cancer Nocturia Osteoarthritis of spine with radiculopathy, lumbar region Rheumatoid arthritis involving multiple sites Seropositive rheumatoid arthritis Stress incontinence in female Systemic lupus erythematosus Urgency-frequency syndrome Vitamin D deficiency Surgical History H/O tubal ligation History of biopsy History of esophagogastroduodenoscopy (EGD) History of lymph node dissection of left axilla History of repair of inguinal hernia Hx laparoscopic cholecystectomy Hx of colonoscopy Hx of endoscopy Family History Family History Maternal Grandmother Ovarian cancer Social History Social History Household Members: Spouse Housing: Apartment Are you a primary client care 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 to a significant other at home: No Do 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 have 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 or other home services: 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) Alcohol intake: current Alcohol intake frequency: does not drink Patient Tobacco Use Status: Current everyday Tobacco user Tobacco use type: Cigarette Cigarettes Per Day: 4 Smoked in Last 30 Days: Yes Use of substances other than those prescribed or required for medical reasons: Yes Substance Use Type: Marijuana Substance Use Frequency: Occasionally Last Used Substance: Just Prior to Admission Advance Directives: Yes Advance Directives Information Provided: Yes Advance Directives on File: No Advance Directives Date on File: 09/23/20 service: No Current occupational status: disabled 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 Blood pressure normal. Heart rate normal. Respiration rate normal. Temperature normal. Oxygen saturation normal. Appearance: Alert. Oriented X3. No acute distress. Head: Normal external exam. Normocephalic. Atraumatic. No Osorio signs noted. No raccoon eyes noted Eyes: PERRLA. EOMI. Conjunctiva and sclera normal. Eyelids normal. ENT: TM's Normal. Pharynx normal. Uvula midline. Moist mucous membranes. No trismus noted. No drooling noted. No muffled voice noted. Neck: Normal inspection. Neck supple. FROM. No adenopathy. Thyroid Normal. No meningeal signs. No neck mass noted. CVS: Normal heart rate and rhythm. Heart sound normal. No murmurs noted. Pulses normal throughout. Respiratory: No respiratory distress. Painless inspiration. Breath sounds normal. No wheezes/rales/rhonchi noted. Chest nontender. No accessory muscle usage noted or decreased air movement noted. Abdomen: Soft and nontender. Bowel sounds normal in all 4 quadrants. No distention noted. No organomegaly noted. No visible injury noted. Back: No CVA tenderness. Full range of motion noted. Skin: Skin warm and dry. Normal skin color. Normal skin turgor. No rashes/lesions/lacerations noted. Extremities: Right upper extremities: Tenderness to touch to the right wrist with mild swelling around the right wrist, palpable right radial artery, cap refill is less than 2 seconds, no ischemic change of the right hand, positive Phalen's test static wrist flexion for 60 seconds which produces symptoms to worsen, also tapping on the median nerve directly causing shooting pain to the right hand and wrist. Neuro: Oriented X 3. Cranial nerve exam: II-XII are grossly intact No motor deficit. No sensory deficit. Reflexes normal. Course Course Course Narrative: 46-year-old female came in with right wrist pain physical exam is more consistent with carpal tunnel syndrome to the right wrist, no DVT, await for arterial ultrasound rule out arterial occlusion. Signed out to Dr. Gracia to check on the arterial ultrasound. Discharge Plan Discharge Clinical Impression: Arthralgia of wrist, right, Acute carpal tunnel syndrome of right wrist Patient Disposition: Home, Self-Care Instructions: Arthralgia (ED) Prescriptions: New oxycodone 5 mg tablet 5 mg PO Q8H PRN (Reason: pain) Qty: 10 0RF Rx Instructions: Partial Fill upon patient request. No Action (DME) adhesive bandage 1 bandage See Rx Instructions .ROUTE .MEDSUPPLY Qty: 20 5RF Rx Instructions: Use after Methotrexate injection pantoprazole 40 mg tablet,delayed release (DR/EC) 40 mg PO DAILY Qty: 90 1RF benztropine 0.5 mg Tablet 0.5 mg PO DAILY baclofen 5 mg tablet 5 mg PO TID PRN (Reason: Muscle spasms) Qty: 10 0RF gabapentin 400 mg capsule 400 mg PO TID trazodone 150 mg tablet 1 tab PO BEDTIME PRN (Reason: Sleep) risperidone 1 mg tablet 0.5 mg PO DAILY PRN (Reason: Agitation) docusate sodium 100 mg Tablet 100 mg PO BID PRN (Reason: Constipation) prednisone 10 mg tablet 30 mg PO DAILY enoxaparin [Lovenox] 80 mg/0.8 mL syringe 80 mg subcut DAILY Qty: 8 2RF aspirin 81 mg capsule 81 mg PO DAILY 14 Days Qty: 14 0RF diclofenac sodium 1 % gel 4 g topical QID Qty: 100 0RF Rx Instructions: apply to single knee, ankle, foot; for foot includes sole/toes/top of foot oxycodone 5 mg tablet 5 mg PO BID PRN (Reason: pain) Qty: 10 0RF Rx Instructions: Partial Fill upon patient request. famotidine 20 mg tablet 1 tab PO BID@1200,2100 ferrous sulfate [FeroSul] 325 mg (65 mg iron) tablet 1 tab PO QAM albuterol sulfate [ProAir HFA] 90 mcg/actuation HFA aerosol inhaler 2 puff PO Q4-6H PRN (Reason: Wheezing) duloxetine 60 mg capsule,delayed release(DR/EC) 1 cap PO BID ursodiol 500 mg tablet 500 mg PO BID Qty: 90 1RF (DME) Monoject TB Safety Syringe 1 mL 28 gauge x 1/2 syringe See Rx Instructions .ROUTE .MEDSUPPLY Qty: 50 1RF Rx Instructions: As directed - use to inject Methorexate once per week folic acid 1 mg tablet 1 mg PO QAM Qty: 90 3RF Incruse Ellipta 62.5 mcg/actuation blister with device 1 inh inhalation DAILY 30 Days Qty: 1 6RF alcohol swabs [Alcohol Prep Pads] Pads, Medicated 0 pad topical BID nicotine 14 mg/24 hr patch 24 hour 0 patch topical alprazolam 1 mg tablet 1.5 mg PO BEDTIME PRN prednisone 10 mg tablet 10 mg PO BID Qty: 60 1RF Rx Instructions: start the 10 mg prednisone after the current supply of the 20 mg (script filled at [facility]) is finished Kwan(CF) Pen 40 mg/0.4 mL pen injector kit 40 mg subcut Q2W Qty: 2 3RF methotrexate sodium 2.5 mg tablet 15 mg PO QWEEK Qty: 24 1RF hydrochlorothiazide 12.5 mg tablet 12.5 mg PO DAILY Referrals: Mackenzie Estrada MD [Primary Care Provider] - Frankie Hughes MD [Physician] - Becky Card MD [Physician] -
[2022-04-18] MEDS: oxyCODONE HCl Immed Release 5 MG TABLET PO (14:40)
--- NOTE | 2022-04-18 14:44 | PC.NURSE ---
patient to ultrasound . patient aware of plan of care .
[2022-04-18 15:33] VITALS: BP 124/81; PULSE 54; RESP 16; TEMP 36.8; O2SAT 99
[2022-04-18] MEDS: HYDROmorphone HCl 2 MG/ML VIAL IM (16:54)
--- NOTE | 2022-04-18 17:47 | ED.EXTPRO ---
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 Mode of arrival: ambulatory Limitations: no limitations Related Data Home Medications Medication Instructions Recorded Confirmed benztropine 0.5 mg tablet 0.5 mg PO DAILY 05/01/20 03/29/22 albuterol sulfate 90 mcg/actuation 2 puff PO Q4-6H PRN Wheezing 10/02/21 03/29/22 aerosol inhaler (ProAir HFA) duloxetine 60 mg capsule,delayed 1 cap PO BID 10/02/21 03/29/22 release famotidine 20 mg tablet 1 tab PO BID@1200,2100 10/02/21 03/29/22 ferrous sulfate 325 mg (65 mg 1 tab PO QAM 10/02/21 03/29/22 iron) tablet (FeroSul) docusate sodium 100 mg tablet 100 mg PO BID PRN Constipation 10/22/21 03/29/22 gabapentin 400 mg capsule 400 mg PO TID 10/22/21 03/29/22 risperidone 1 mg tablet 0.5 mg PO DAILY PRN Agitation 10/22/21 03/29/22 trazodone 150 mg tablet 1 tab PO BEDTIME PRN Sleep 10/22/21 03/29/22 alcohol swabs (Alcohol Prep Pads) 0 pad topical BID 03/01/22 alprazolam 1 mg tablet 1.5 mg PO BEDTIME PRN 03/01/22 03/29/22 nicotine 14 mg/24 hr daily 0 patch topical 03/01/22 transdermal patch hydrochlorothiazide 12.5 mg tablet 12.5 mg PO DAILY 03/02/22 prednisone 10 mg tablet 30 mg PO DAILY 03/29/22 03/29/22 Previous Rx's Medication Instructions Recorded adhesive bandage 1 #20 ea 05/21/20 folic acid 1 mg tablet 1 mg PO QAM #90 tabs 02/11/21 syringe with needle, safety 1 mL #50 ea 02/11/21 28 gauge x 1/2 (Monoject TB Safety Syringe) baclofen 5 mg tablet 5 mg PO TID PRN Muscle spasms #10 09/08/21 tabs ursodiol 500 mg tablet 500 mg PO BID #90 tabs 03/10/22 pantoprazole 40 mg tablet,delayed 40 mg PO DAILY #90 tabs 12/07/21 release enoxaparin 80 mg/0.8 mL 80 mg (0.8 mL) subcut DAILY dvt in 01/26/22 subcutaneous syringe (Lovenox) right lower extremity failed eliquis #8 mL aspirin 81 mg capsule 81 mg PO DAILY 14 days #14 caps 02/18/22 umeclidinium 62.5 mcg/actuation 1 inh inhalation DAILY 30 days #1 03/02/22 blister powder for inhalation ea (Incruse Ellipta) diclofenac sodium 1 % topical gel 4 g topical QID #100 grams 03/28/22 oxycodone 5 mg tablet 5 mg PO BID PRN pain #10 tabs 03/28/22 adalimumab 40 mg/0.4 mL 40 mg (0.4 mL) subcut Q2W #2 kits 03/29/22 subcutaneous pen kit (Humira(CF) Pen) methotrexate sodium 2.5 mg tablet 15 mg PO QWEEK #24 tabs 03/29/22 prednisone 10 mg tablet 10 mg PO BID #60 tabs 03/29/22 oxycodone 5 mg tablet 5 mg PO Q8H PRN pain #10 tabs 04/18/22 Allergies Allergy/AdvReac Type Severity Reaction Status Date / Time almond [ALMONDS] Allergy Severe ANAPHYLAXIS Verified 04/13/22 09:50 adhesive tape [ADHESIVE TAPE] Allergy Intermediate RASH Verified 04/13/22 09:50 morphine [MORPHINE] Allergy Intermediate GI UPSET, Verified 04/13/22 09:50 difficulty breathing tramadol [TRAMADOL] AdvReac Unknown NAUSEA & Verified 04/13/22 09:50 VOMITING PMFSH Past Medical History Medical History Acute arthritis Bleeding hemorrhoid Bone cancer Cancer of heart Chronic GERD De Quervain's disease (tenosynovitis) Degeneration of intervertebral disc at C4-C5 level Degeneration, intervertebral disc, lumbar Depressive disorder Esophageal dysphagia Fibromyalgia Gallstones History of chemotherapy History of chemotherapy Hodgkin disease Lung cancer Nocturia Osteoarthritis of spine with radiculopathy, lumbar region Rheumatoid arthritis involving multiple sites Seropositive rheumatoid arthritis Stress incontinence in female Systemic lupus erythematosus Urgency-frequency syndrome Vitamin D deficiency Surgical History H/O tubal ligation History of biopsy History of esophagogastroduodenoscopy (EGD) History of lymph node dissection of left axilla History of repair of inguinal hernia Hx laparoscopic cholecystectomy Hx of colonoscopy Hx of endoscopy Family History Family History Maternal Grandmother Ovarian cancer Social History Social History Household Members: Spouse Housing: Apartment Are you a primary care companion to a significant other at home: No Do 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 have 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 or 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 home services: 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) Alcohol intake: current Alcohol intake frequency: does not drink Patient Tobacco Use Status: Current everyday Tobacco user Tobacco use type: Cigarette Cigarettes Per Day: 4 Smoked in Last 30 Days: Yes Use of substances other than those prescribed or required for medical reasons: Yes Substance Use Type: Marijuana Substance Use Frequency: Occasionally Last Used Substance: Just Prior to Admission Advance Directives: Yes Advance Directives Information Provided: Yes Advance Directives on File: No Advance Directives Date on File: 09/23/20 service: No Current occupational status: disabled 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 No Action (DME) adhesive bandage 1 bandage See Rx Instructions .ROUTE .MEDSUPPLY Qty: 20 5RF Rx Instructions: Use after Methotrexate injection pantoprazole 40 mg tablet,delayed release (DR/EC) 40 mg PO DAILY Qty: 90 1RF benztropine 0.5 mg Tablet 0.5 mg PO DAILY baclofen 5 mg tablet 5 mg PO TID PRN (Reason: Muscle spasms) Qty: 10 0RF gabapentin 400 mg capsule 400 mg PO TID trazodone 150 mg tablet 1 tab PO BEDTIME PRN (Reason: Sleep) risperidone 1 mg tablet 0.5 mg PO DAILY PRN (Reason: Agitation) docusate sodium 100 mg Tablet 100 mg PO BID PRN (Reason: Constipation) prednisone 10 mg tablet 30 mg PO DAILY enoxaparin [Lovenox] 80 mg/0.8 mL syringe 80 mg subcut DAILY Qty: 8 2RF aspirin 81 mg capsule 81 mg PO DAILY 14 Days Qty: 14 0RF diclofenac sodium 1 % gel 4 g topical QID Qty: 100 0RF Rx Instructions: apply to single knee, ankle, foot; for foot includes sole/toes/top of foot oxycodone 5 mg tablet 5 mg PO BID PRN (Reason: pain) Qty: 10 0RF Rx Instructions: Partial Fill upon patient request. famotidine 20 mg tablet 1 tab PO BID@1200,2100 ferrous sulfate [FeroSul] 325 mg (65 mg iron) tablet 1 tab PO QAM albuterol sulfate [ProAir HFA] 90 mcg/actuation HFA aerosol inhaler 2 puff PO Q4-6H PRN (Reason: Wheezing) duloxetine 60 mg capsule,delayed release(DR/EC) 1 cap PO BID ursodiol 500 mg tablet 500 mg PO BID Qty: 90 1RF (DME) Monoject TB Safety Syringe 1 mL 28 gauge x 1/2 syringe See Rx Instructions .ROUTE .MEDSUPPLY Qty: 50 1RF Rx Instructions: As directed - use to inject Methorexate once per week folic acid 1 mg tablet 1 mg PO QAM Qty: 90 3RF Incruse Ellipta 62.5 mcg/actuation blister with device 1 inh inhalation DAILY 30 Days Qty: 1 6RF alcohol swabs [Alcohol Prep Pads] Pads, Medicated 0 pad topical BID nicotine 14 mg/24 hr patch 24 hour 0 patch topical alprazolam 1 mg tablet 1.5 mg PO BEDTIME PRN prednisone 10 mg tablet 10 mg PO BID Qty: 60 1RF Rx Instructions: start the 10 mg prednisone after the current supply of the 20 mg (script filled at [facility]) is finished Kwan(CF) Pen 40 mg/0.4 mL pen injector kit 40 mg subcut Q2W Qty: 2 3RF methotrexate sodium 2.5 mg tablet 15 mg PO QWEEK Qty: 24 1RF hydrochlorothiazide 12.5 mg tablet 12.5 mg PO DAILY Referrals: Mackenzie Estrada MD [Primary Care Provider] - Frankie Hughes MD [Physician] - Becky Card MD [Physician] -
[2022-04-18] MEDS: Lidocaine HCl Viscous 2 % 15 ML SOLUTION 10 ML PO (17:57)
[2022-04-18] MEDS: PHENobarb/Hyoscy/Atropine/Scop 10 ML ELIXIR PO (17:57)
[2022-04-18] MEDS: Magnesium Hydrox/Alum Hydrox 30 ML ORAL.SUSP PO (17:59)
== END 2022-04-18 18:12 | disposition home or self-care (01) ==
PROVIDERS: Emergency Provider Emergency Medicine; PCP General Practice
DX: G56.01 Carpal tunnel syndrome, right upper limb (principal); M25.531 Pain in right wrist; R60.0 Localized edema; F17.210 Nicotine dependence, cigarettes, uncomplicated; Z71.6 Tobacco abuse counseling; F12.90 Cannabis use, unspecified, uncomplicated
CPT/HCPCS: 29125; 93931; 93971; 96372; 99284; J1170

== ENCOUNTER → 2022-04-19 10:35 | Outpatient (BNVA) | payer MEDICAID, SELFPAY | PROVIDERS: PCP General Practice; Visit Provider Internal Medicine Gastroenterology | DX: R10.13 Epigastric pain (principal); L08.9 Local infection of the skin and subcutaneous tissue, unspecified | CPT/HCPCS: 99212 ==

== ENCOUNTER 2022-04-21 07:15 | Day surgery (SDC) | payer MEDICAID, SELFPAY ==
[2022-04-21] VITALS (10 sets, daily range): BP systolic 107–128; BP diastolic 52–78; PULSE 56–67; RESP 14–20; TEMP 36.3–36.6; O2SAT 96–99; BMI 29.0
[2022-04-21 08:05] LABS: MANUAL DIFF FLAG NO
[2022-04-21 08:08] LABS: Basophils Percent Auto 0.2 % (0-2); Eosinophils Absolute Auto 0.1 X10*3/uL (0.0-0.4); Eosinophils Percent Auto 0.9 % (0-4); Hematocrit 34.6 % (37.0-47.0); Hemoglobin 11.1 g/dl (12.0-16.0); Imm Gran Abs Auto 0.01 X10*3/uL (0.00-0.03); Imm Gran Pct Auto 0.2 % (0.0-0.4); Lymphocytes Absolute Auto 2.8 X10*3/uL (1.2-4.9); Lymphocytes Percent Auto 49.9 % (20-40); Mean Corpuscular HGB Conc 32.1 g/dl (31.0-35.0); Mean Corpuscular Hemoglobin 30.2 pg (27.0-33.0); Mean Platelet Volume 9.6 fL (9.4-12.3); Monocytes Absolute Auto 0.4 X10*3/uL (0.1-1.2); Monocytes Percent Auto 7.1 % (2-11); Neutrophils Absolute Auto 2.3 x10*3/uL (2.0-8.3); Neutrophils Percent Auto 41.7 % (45-73); Platelet Count 250 X10*3/uL (160-400); Red Blood Count 3.68 X10*6/uL (4.20-5.50); Red Cell Distribution Width 14.7 % (11.0-16.0); White Blood Count 5.5 X10*3/uL (4.8-10.8)
[2022-04-21] MEDS: 0.9 % Sodium Chloride 1,000 ML 100 ML IVCONT (08:10)
[2022-04-21 08:25] LABS: Blood Urea Nitrogen 14 mg/dL (9-16); Creatinine Clr Calc Pharmacy 115.9; Estimated Glomerular Filt Rate > 60
--- NOTE | 2022-04-21 11:47 | P.OP_ITS ---
Operative Note Operative Note Date of Service: 04/21/22 Narrative: Angiogram report from [facility] Preoperative diagnosis: Atherosclerosis of right lower extremity with activity limiting claudication Postoperative diagnosis: Same Procedure: 1. Ultrasound-guided left common femoral artery access 2. Ultrasound-guided right common femoral artery access 3. Right leg runoff Surgeon:Frankie Hughes M.D., FACS, RPVI Operations Research Group Manager:None Anesthesia: Local with moderate conscious sedation. Total intraservice moderate sedation time was 44 minutes. I monitored the patient's level of consciousness and physiologic status continuously throughout the procedure. Specimens:none Drains:none Estimated blood loss: Less than 10 ml Implant: None Indications: Complex 46-year-old female with bilateral lower extremity claudication now presents for endovascular intervention. Preprocedure CT angiogram was obtained The patient has signed the informed consent after reviewing risks, complications, benefits, and alternatives previously discussed with the patient. The patient was given the opportunity to ask any additional questions or voice any concerns. All questions were answered to the patient's satisfaction. Procedure in detail: Patient was brought to the angiography suite prior to which a time-out was called for patient identification and site verification. Bilateral groins were prepped and draped in the standard surgical fashion. Under ultrasound guidance left common femoral was punctured with micro puncture needle and wire. Subsequently a precision 4 Mosotho sheath was then placed. 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 Multiple orthogonal views were undertaken with angiogram. We tried a stiff angled Glidewire and an 014 advantage to try to traverse this lesion but was unsuccessful. We then turned our attention to right common femoral artery. Under ultrasound guidance this was punctured in a similar fashion. We used micro puncture needle and wire. Subsequently a precision 4 Mosotho sheath was then placed. Through the right sheath angiogram and runoff for then undertaken. We were unable to intervene. Catheter wire sheath were then removed from bilateral groins and 10 minutes of direct pressure was held. Interpretation of films: 1. Ultrasound demonstrates appropriate femoral puncture. Image of which was saved. 2. Aortogram demonstrates appropriate caliber aorta. Minimal disease. Appropriate take-off of the renals. 3. Iliac images demonstrate left common iliac total occlusion with reconstitution via collaterals to the external iliac. Right side within normal limits. There was some mild disease at the aortic bifurcation. 4. Right Leg Common femoral artery: No significant disease Profundus Femoris: No significant disease Superficial femoral artery: Disease at Osman's canal calcified lesion moderate to severe stenosis Popliteal artery (p1,p2,p3): No significant disease Anterior tibial artery: Patent Peroneal artery: Patent Posterior tibial artery: Patent Dorsalis pedis/plantar arch: Pedal arch was complete Conclusion: 1. Successful diagnostic angiogram. May need right SFA stent. May also need femoral to femoral bypass. 2. Anticoagulation status: No change in current medications This note is constructed using voice recognition software. While every effort has been made to ensure accuracy, electronic pagination system operator errors may have been included. Thank you for allowing me to participate in the care of your patient. Yours sincerely, Frankie Hughes MD, FACS, R.P.V.I.
[2022-04-21] MEDS: Acetaminophen 325 MG TABLET 650 MG PO (11:53)
[2022-04-21] MEDS: oxyCODONE HCl Immed Release 5 MG TABLET PO (11:53)
== END 2022-04-21 15:00 | disposition home or self-care (01) ==
PROVIDERS: PCP General Practice; Visit Provider Surgery Vascular Surgery
DX: I70.211 Atherosclerosis of native arteries of extremities with intermittent claudication, right leg (principal); M79.7 Fibromyalgia; M05.9 Rheumatoid arthritis with rheumatoid factor, unspecified; M32.9 Systemic lupus erythematosus, unspecified; M47.26 Other spondylosis with radiculopathy, lumbar region; C38.0 Malignant neoplasm of heart; C34.90 Malignant neoplasm of unspecified part of unspecified bronchus or lung; C79.51 Secondary malignant neoplasm of bone; Z85.71 Personal history of Hodgkin lymphoma; Z92.21 Personal history of antineoplastic chemotherapy; F32.A Depression, unspecified; E55.9 Vitamin D deficiency, unspecified; Z79.02 Long term (current) use of antithrombotics/antiplatelets; Z79.82 Long term (current) use of aspirin; Z79.52 Long term (current) use of systemic steroids; Z79.899 Other long term (current) drug therapy; Z88.8 Allergy status to other drugs, medicaments and biological substances; F17.210 Nicotine dependence, cigarettes, uncomplicated; F12.90 Cannabis use, unspecified, uncomplicated; Z98.890 Other specified postprocedural states
CPT/HCPCS: 36246; 36415; 75630; 76937; 82565; 84520; 85025; 99152; 99153; C1769; C1887; J2250; J3010; Q9967

== ENCOUNTER → 2022-05-06 10:12 | Outpatient (BNVA) | payer MEDICAID, SELFPAY | PROVIDERS: PCP General Practice; Visit Provider Surgery Vascular Surgery | DX: I73.9 Peripheral vascular disease, unspecified (principal) | CPT/HCPCS: 99212 ==

== ENCOUNTER 2022-05-18 09:34 | Outpatient (REF) | payer MEDICAID, SELFPAY ==
[2022-05-18 11:18] LABS: MANUAL DIFF FLAG NO
[2022-05-18 11:24] LABS: Basophils Percent Auto 0.2 % (0-2); Eosinophils Absolute Auto 0.1 X10*3/uL (0.0-0.4); Eosinophils Percent Auto 0.8 % (0-4); Hematocrit 38.5 % (37.0-47.0); Hemoglobin 12.3 g/dl (12.0-16.0); Imm Gran Abs Auto 0.01 X10*3/uL (0.00-0.03); Imm Gran Pct Auto 0.2 % (0.0-0.4); Lymphocytes Absolute Auto 3.3 X10*3/uL (1.2-4.9); Lymphocytes Percent Auto 51.9 % (20-40); Mean Corpuscular HGB Conc 31.9 g/dl (31.0-35.0); Mean Corpuscular Hemoglobin 30.4 pg (27.0-33.0); Mean Corpuscular Volume 95.1 fL (80.0-98.0); Mean Platelet Volume 9.9 fL (9.4-12.3); Monocytes Absolute Auto 0.4 X10*3/uL (0.1-1.2); Monocytes Percent Auto 5.6 % (2-11); Neutrophils Absolute Auto 2.6 x10*3/uL (2.0-8.3); Neutrophils Percent Auto 41.3 % (45-73); Platelet Count 258 X10*3/uL (160-400); Red Blood Count 4.05 X10*6/uL (4.20-5.50); Red Cell Distribution Width 14.7 % (11.0-16.0); White Blood Count 6.3 X10*3/uL (4.8-10.8)
[2022-05-18 12:08] LABS: Alanine Aminotransferase 12 U/L (0-31); Aspartate Amino Transferase 12 U/L (5-31); C Reactive Protein 0.52 mg/dL (< or = 0.50); Estimated Glomerular Filt Rate > 60
[2022-05-18 12:10] LABS: Erythrocyte Sedimentation Rate 70 MM/HR (0-20)
== END 2022-05-18 09:35 | disposition home or self-care (01) ==
LOC: HO.10HDL 09:34
PROVIDERS: Visit Provider Internal Medicine Rheumatology
DX: M05.9 Rheumatoid arthritis with rheumatoid factor, unspecified (principal); G56.01 Carpal tunnel syndrome, right upper limb; M79.7 Fibromyalgia; I73.9 Peripheral vascular disease, unspecified; Z79.899 Other long term (current) drug therapy
CPT/HCPCS: 36415; 82565; 84450; 84460; 85025; 85652; 86140; 99212

== ENCOUNTER 2022-05-25 09:21 | Emergency (ER) | payer MEDICAID, SELFPAY ==
--- NOTE | ~2022-05-25 | US_ITS ---
EXAMINATION: US VENOUS WITH DOPPLER UPPER EXTREMITY, RIGHT CLINICAL INFORMATION: Swelling. History of DVT. COMPARISON: Venous Doppler upper extremity right 04/18/2022 TECHNIQUE: Ultrasound of the upper extremity is performed using compression sonography and color and pulse Doppler flow with assessment of augmentation of flow. There is also imaging and Doppler assessment of the jugular and subclavian veins. Spectral analysis with color-flow imaging is performed. FINDINGS: Respiratory variation, normal compression, and augmented flow are noted throughout the upper extremity including the axillary, brachial, cubital, and radial and ulnar veins. There is normal flow in the internal jugular and subclavian veins. There is no visible deep or superficial thrombophlebitis. Incidental note is made of reflux into the proximal basilic vein. Specific imaging over the area of pain at the anterior aspect demonstrates a small volume of fluid at the anterior wrist. If the patient's symptoms progress, a followup ultrasound in 5 -7 days might be of value to exclude proximal propagation from a nonvisualized distal arm vein. US/US venous duplex UE RT IMPRESSION: 1. No DVT demonstrated in the right upper extremity. 2. Small volume of fluid at the anterior wrist.
[2022-05-25 09:27] VITALS: BP 141/84; PULSE 99; RESP 20; TEMP 36.2; O2SAT 97; BMI 26.9
[2022-05-25 09:45] LABS: MANUAL DIFF FLAG NO
[2022-05-25 09:46] LABS: Basophils Percent Auto 0.4 % (0-2); Eosinophils Absolute Auto 0.1 X10*3/uL (0.0-0.4); Eosinophils Percent Auto 1.1 % (0-4); Hematocrit 37.7 % (37.0-47.0); Hemoglobin 12.1 g/dl (12.0-16.0); Imm Gran Abs Auto 0.02 X10*3/uL (0.00-0.03); Imm Gran Pct Auto 0.4 % (0.0-0.4); Lymphocytes Absolute Auto 2.9 X10*3/uL (1.2-4.9); Lymphocytes Percent Auto 52.9 % (20-40); Mean Corpuscular HGB Conc 32.1 g/dl (31.0-35.0); Mean Corpuscular Hemoglobin 30.3 pg (27.0-33.0); Mean Corpuscular Volume 94.3 fL (80.0-98.0); Mean Platelet Volume 9.6 fL (9.4-12.3); Monocytes Absolute Auto 0.3 X10*3/uL (0.1-1.2); Monocytes Percent Auto 5.8 % (2-11); Neutrophils Absolute Auto 2.2 x10*3/uL (2.0-8.3); Neutrophils Percent Auto 39.4 % (45-73); Platelet Count 285 X10*3/uL (160-400); Red Cell Distribution Width 14.9 % (11.0-16.0); White Blood Count 5.5 X10*3/uL (4.8-10.8)
[2022-05-25 10:04] LABS: Alanine Aminotransferase 16 U/L (0-31); Albumin Level 4.1 g/dL (3.5-5.0); Alkaline Phosphatase 63 U/L (39-117); Anion Gap 17 (12-20); Aspartate Amino Transferase 15 U/L (5-31); Bilirubin Direct < 0.2 mg/dL (0.0-0.5); Bilirubin Total 0.2 mg/dL (0.0-1.0); Blood Urea Nitrogen 10 mg/dL (9-16); Calcium 9.3 mg/dL (8.4-10.2); Carbon Dioxide 22 mmol/L (22-29); Chloride 104 mmol/L (96-108); Creatinine Clr Calc Pharmacy 98.5; Estimated Glomerular Filt Rate > 60; Glucose Random 86 mg/dL (60-115); Lipase 42 U/L (8-78); Potassium 3.8 mmol/L (3.3-5.1); Sodium 139 mmol/L (135-145); Total Protein 8.5 g/dL (6.5-8.0)
[2022-05-25 13:11] VITALS: BP 155/79; PULSE 87; RESP 20; TEMP 36; O2SAT 96
[2022-05-25 15:58] VITALS: BP 156/89; PULSE 98; RESP 18; TEMP 36.6; O2SAT 96
== END 2022-05-25 21:17 | disposition left against medical advice (07) ==
PROVIDERS: Emergency Provider Emergency Medicine; PCP General Practice
DX: M79.641 Pain in right hand (principal); R60.0 Localized edema; Z79.899 Other long term (current) drug therapy
CPT/HCPCS: 36415; 80048; 80076; 83690; 85025; 93971; 99281; 99284

== ENCOUNTER 2022-06-09 05:50 | Day surgery (SDC) | payer MEDICAID, SELFPAY ==
[2022-06-09] VITALS (9 sets, daily range): BP systolic 88–146; BP diastolic 46–89; PULSE 51–90; RESP 14–22; TEMP 36.6–36.9; O2SAT 98–99; BMI 33.2; BMI 32.8
[2022-06-09 06:29] LABS: MANUAL DIFF FLAG NO
[2022-06-09 06:32] LABS: Basophils Percent Auto 0.3 % (0-2); Eosinophils Absolute Auto 0.1 X10*3/uL (0.0-0.4); Eosinophils Percent Auto 1.2 % (0-4); Hematocrit 35.7 % (37.0-47.0); Hemoglobin 11.7 g/dl (12.0-16.0); Imm Gran Abs Auto 0.01 X10*3/uL (0.00-0.03); Imm Gran Pct Auto 0.2 % (0.0-0.4); Lymphocytes Absolute Auto 2.7 X10*3/uL (1.2-4.9); Lymphocytes Percent Auto 46.5 % (20-40); Mean Corpuscular HGB Conc 32.8 g/dl (31.0-35.0); Mean Corpuscular Hemoglobin 31.2 pg (27.0-33.0); Mean Corpuscular Volume 95.2 fL (80.0-98.0); Mean Platelet Volume 9.8 fL (9.4-12.3); Monocytes Absolute Auto 0.3 X10*3/uL (0.1-1.2); Monocytes Percent Auto 5.7 % (2-11); Neutrophils Absolute Auto 2.7 x10*3/uL (2.0-8.3); Neutrophils Percent Auto 46.1 % (45-73); Platelet Count 276 X10*3/uL (160-400); Red Blood Count 3.75 X10*6/uL (4.20-5.50); Red Cell Distribution Width 14.5 % (11.0-16.0); White Blood Count 5.8 X10*3/uL (4.8-10.8)
[2022-06-09] MEDS: 0.9 % Sodium Chloride 1,000 ML 100 ML IVCONT (06:46)
[2022-06-09 06:57] LABS: Blood Urea Nitrogen 13 mg/dL (9-16); Creatinine Clr Calc Pharmacy 98.5; Estimated Glomerular Filt Rate > 60
--- NOTE | 2022-06-09 10:01 | P.OP_ITS ---
Operative Note Operative Note Date of Service: 06/09/22 Narrative: Angiogram report from [facility] Preoperative diagnosis: Atherosclerosis of right lower extremity with activity limiting claudication Postoperative diagnosis: Same Procedure: 1. Ultrasound-guided left arm radial artery access 2. Aortogram with right lower extremity runoff 3. Angioplasty and stent of right SFA Surgeon:Frankie Hughes M.D., FACS, RPVI [employer] Press Operator:None Anesthesia: Local with moderate conscious sedation. Total intraservice moderate sedation time was 80 minutes. I monitored the patient's level of consciousness and physiologic status continuously throughout the procedure. Specimens:none Drains:none Estimated blood loss: Less than 10 ml Implant: Terumo Misago 6 x 80 stent Indications: Very pleasant 46-year-old female with prior history of known right SFA disease. She had a prior angiogram in is now for arm approach. The patient has signed the informed consent after reviewing risks, complications, benefits, and alternatives previously discussed with the patient. The patient was given the opportunity to ask any additional questions or voice any concerns. All questions were answered to the patient's satisfaction. Procedure in detail: Patient was brought to the angiography suite prior to which a time-out was called for patient identification and site verification. Bilateral groins were prepped and draped in the standard surgical fashion. Under ultrasound guidance left radial artery was punctured with micro puncture needle and wire. Subsequently a precision 4 Welsh sheath was then placed. Bentson wire was advanced to the level of the aorta. We then administered 5000 units of heparin and 200 mcg of nitroglycerin. Once this was accomplished we then advanced a now be cross catheter to the level of the aortic arch. We and then advanced 035 glidewire Advantage into the level of the aorta and parked it at the level of the iliac bifurcation. We then advanced a [address] down from the radial artery down in to the aortic bifurcation and was then able to traverse it down into the SFA. Once this was all accomplished we did an angiogram did multiple orthogonal views. We recognize the lesion in the mid SFA. We then advanced a 400 cm Glidewire. We were able to traverse this lesion. We administered an additional 2000 units of heparin. We then plasty this area out with a 6 by 60 balloon. Subsequent to that we then placed a 6 x 80 stent. Once in position it was deployed. We then plasty this area with a 6 x 60 balloon with multiple insufflations to obtain good wall apposition. Once this was all accomplished we did completion angiogram with runoff. Excellent result was obtained. Catheter wire sheath was then removed. A TR band was placed on the radial artery. Patient had a warm hand with good capillary refill once this was all accomplished. Patient was brought back to the recovery with stable vitals. Interpretation of films: 1. Ultrasound demonstrates appropriate radial artery puncture. Image of which was saved. 2. Aortogram demonstrates appropriate caliber aorta. Minimal disease. Appropriate take-off of the renals. 3. Iliac images demonstrate left iliac occlusion right side was clean 4. Right Leg Common femoral artery: No significant Profundus Femoris: No significant disease Superficial femoral artery: High-grade stenosis at Osman's canal Popliteal artery (p1,p2,p3): Patent Anterior tibial artery: No significant disease Peroneal artery: No significant disease Posterior tibial artery: No significant disease Dorsalis pedis/plantar arch: Incomplete Conclusion: 1. Successful plasty and stent of right SFA 2. Anticoagulation status: Can resume aspirin and Lovenox tomorrow This note is constructed using voice recognition software. While every effort has been made to ensure accuracy, survey questionnaire designer errors may have been included. Thank you for allowing me to participate in the care of your patient. Yours sincerely, Frankie Hughes MD, FACS, R.P.V.I.
[2022-06-09] MEDS: oxyCODONE HCl Immed Release 5 MG TABLET PO (10:18)
[2022-06-09] MEDS: Acetaminophen 325 MG TABLET 650 MG PO (10:19)
[2022-06-09] MEDS: iohexoL 350 MG/ML 100 ML INFUS..BTL IV (12:03)
== END 2022-06-09 11:51 | disposition home or self-care (01) ==
PROVIDERS: PCP General Practice; Visit Provider Surgery Vascular Surgery
DX: I70.211 Atherosclerosis of native arteries of extremities with intermittent claudication, right leg (principal); M06.9 Rheumatoid arthritis, unspecified; M32.9 Systemic lupus erythematosus, unspecified; M79.7 Fibromyalgia; M65.4 Radial styloid tenosynovitis [de Quervain]; E55.9 Vitamin D deficiency, unspecified; Z79.82 Long term (current) use of aspirin; Z79.01 Long term (current) use of anticoagulants; Z91.040 Latex allergy status; Z85.71 Personal history of Hodgkin lymphoma; F12.90 Cannabis use, unspecified, uncomplicated; Z92.21 Personal history of antineoplastic chemotherapy; Z98.890 Other specified postprocedural states
CPT/HCPCS: 36415; 37226; 76937; 82565; 84520; 85025; 99152; 99153; C1725; C1769; C1876; C1887; J2250; J2270; J3010; Q9967

== ENCOUNTER 2022-06-19 08:32 | Emergency (ER) | payer MEDICAID, SELFPAY ==
--- NOTE | ~2022-06-19 | XR_ITS ---
EXAMINATION: XR KNEE, LEFT CLINICAL INFORMATION: Left knee pain. COMPARISON: None TECHNIQUE: Four views of the left knee. FINDINGS: Bones and soft tissues are normal. No fracture or joint effusion. Alignment is anatomic. Joint spaces are well maintained. No abnormal soft tissue calcification. XR/XR knee LT 4V IMPRESSION: Unremarkable left knee.
--- NOTE | ~2022-06-19 | XR_ITS ---
EXAMINATION: CR X-RAY HAND AND WRIST BILATERAL CLINICAL INFORMATION: Hand pain COMPARISON: None TECHNIQUE: 4 views of the hands and wrists bilaterally were obtained. FINDINGS: Mild to moderate soft tissue swelling is seen bilaterally. There is no acute fracture or dislocation. The carpal bones are normally aligned. Mild radiocarpal and distal radial ulnar degenerative joint changes are seen in the right hand. XR/XR hand wrist RT IMPRESSION: 1. Mild to moderate soft tissue swelling bilaterally without acute underlying osseous abnormality. 2. Mild degenerative changes in the right wrist suggest osteoarthritis.
--- NOTE | ~2022-06-19 | XR_ITS ---
EXAMINATION: XR CHEST CLINICAL INFORMATION: Hand and leg swelling. COMPARISON: 02/17/2022 chest radiograph. TECHNIQUE: 2 views of the chest were obtained. FINDINGS: No significant abnormality is noted involving the heart, lungs, mediastinum, bony thorax or soft tissues. Surgical clips overlie the right axilla. XR/XR chest 2V IMPRESSION: No acute cardiopulmonary process.
--- NOTE | ~2022-06-19 | CT_ITS ---
EXAMINATION: CT HEAD WITHOUT CONTRAST CLINICAL INFORMATION: Left leg numbness, rule out intracranial abnormality. COMPARISON: Head CT scan dated 02/01/2022. TECHNIQUE: Contiguous axial imaging was performed from the skull base to vertex without intravenous administration of contrast. Coronal and sagittal reformatted images were obtained. This CT examination was performed using dose optimization techniques as appropriate, variously including the following: *Automated exposure control *Adjustment of mA and/or kV according to patient size (this includes techniques or standardized protocols for targeted exams where dose is matched to indication/reason for exam; i.e. extremities or head) *Use of iterative reconstruction technique DLP: 525 mGy-cm FINDINGS: The cortical sulci are normal. The lateral ventricles are symmetrical. The third and fourth ventricles are in their normal midline position. The basilar and prepontine cisterns are unremarkable. There is no acute intra or extracerebral abnormality. There is no mass effect or midline shift. Sections through the bony calvarium are unremarkable. The paranasal sinuses are clear. The bony orbits and orbital contents are unremarkable. CT/CT head/brain wo IV con IMPRESSION: No acute intracranial pathology.
--- NOTE | ~2022-06-19 | XR_ITS ---
EXAMINATION: CR X-RAY HAND AND WRIST BILATERAL CLINICAL INFORMATION: Hand pain COMPARISON: None TECHNIQUE: 4 views of the hands and wrists bilaterally were obtained. FINDINGS: Mild to moderate soft tissue swelling is seen bilaterally. There is no acute fracture or dislocation. The carpal bones are normally aligned. Mild radiocarpal and distal radial ulnar degenerative joint changes are seen in the right hand. XR/XR hand wrist LT IMPRESSION: 1. Mild to moderate soft tissue swelling bilaterally without acute underlying osseous abnormality. 2. Mild degenerative changes in the right wrist suggest osteoarthritis.
[2022-06-19 08:38] VITALS: BP 137/77; PULSE 97; RESP 17; TEMP 36.6; O2SAT 97; BMI 28.1
[2022-06-19 09:00] VITALS: BP 131/79; PULSE 94; RESP 16; TEMP 37.1; O2SAT 98
--- NOTE | 2022-06-19 09:34 | ECG_ITS ---
Test Reason : ARM/LEG NUMBNESS Blood Pressure : / mmHG Vent. Rate : 085 BPM Atrial Rate : 085 BPM P-R Int : 170 ms QRS Dur : 104 ms QT Int : 370 ms P-R-T Axes : 057 -56 043 degrees QTc Int : 440 ms Normal sinus rhythm RSR' or QR pattern in V1 suggests right ventricular conduction delay Left anterior fascicular block Moderate voltage criteria for LVH, may be normal variant ( R in aVL , [place] product ) Abnormal ECG When compared with ECG of 17-FEB-2022 12:24, No significant change was found Heart rate has increased Referred By: Kylei Neal Electronically Signed By:GERMAINE JACKSON MD
[2022-06-19 10:01] LABS: MANUAL DIFF FLAG NO
[2022-06-19 10:04] VITALS: BP 124/70; PULSE 83; RESP 22; O2SAT 99
[2022-06-19 10:04] LABS: Basophils Percent Auto 0.3 % (0-2); Eosinophils Absolute Auto 0.1 X10*3/uL (0.0-0.4); Eosinophils Percent Auto 0.7 % (0-4); Hematocrit 34.3 % (37.0-47.0); Hemoglobin 11.1 g/dl (12.0-16.0); Imm Gran Abs Auto 0.04 X10*3/uL (0.00-0.03); Imm Gran Pct Auto 0.6 % (0.0-0.4); Lymphocytes Absolute Auto 1.5 X10*3/uL (1.2-4.9); Lymphocytes Percent Auto 21.8 % (20-40); Mean Corpuscular HGB Conc 32.4 g/dl (31.0-35.0); Mean Corpuscular Hemoglobin 30.2 pg (27.0-33.0); Mean Corpuscular Volume 93.5 fL (80.0-98.0); Mean Platelet Volume 9.6 fL (9.4-12.3); Monocytes Absolute Auto 0.3 X10*3/uL (0.1-1.2); Neutrophils Absolute Auto 4.8 x10*3/uL (2.0-8.3); Neutrophils Percent Auto 71.6 % (45-73); Platelet Count 309 X10*3/uL (160-400); Red Blood Count 3.67 X10*6/uL (4.20-5.50); Red Cell Distribution Width 13.9 % (11.0-16.0); White Blood Count 6.8 X10*3/uL (4.8-10.8)
[2022-06-19 10:07] LABS: INTERNATIONAL NORM RATIO 1.1 (0.9-1.1); Prothrombin Time 12.1 SEC (10.0-13.1)
[2022-06-19] MEDS: oxyCODONE HCl Immed Release 5 MG TABLET PO (10:12)
[2022-06-19 10:19] LABS: Alanine Aminotransferase 10 U/L (0-31); Alkaline Phosphatase 69 U/L (39-117); Anion Gap 18 (12-20); Aspartate Amino Transferase 15 U/L (5-31); Bilirubin Total 0.2 mg/dL (0.0-1.0); Blood Urea Nitrogen 10 mg/dL (9-16); Calcium 9.5 mg/dL (8.4-10.2); Carbon Dioxide 21 mmol/L (22-29); Chloride 105 mmol/L (96-108); Creatinine Clr Calc Pharmacy 105.5; Estimated Glomerular Filt Rate > 60; Glucose Random 92 mg/dL (60-115); Magnesium 2.1 mg/dL (1.6-2.6); Potassium 3.9 mmol/L (3.3-5.1); Sodium 140 mmol/L (135-145); Total Protein 8.7 g/dL (6.5-8.0)
[2022-06-19 10:25] LABS: B Type Natriuretic Peptide 15 pg/mL (<100)
[2022-06-19 11:26] LABS: Appearance Urine Clear; Color Urine Yellow; Glucose Urine UA Negative (Negative); Leukocyte Esterase Urine Negative (Negative); Nitrite Urine Positive (Negative); PH 5.5 (5.0-9.0); Specific Gravity - Urine 1.025 (1.005-1.025); UMIC TRIGGER UACC YES; Urine Blood Small (1+) (Negative); Urine Ketones Negative (Negative); Urine Protein Trace mg/dL (Neg-Trace)
[2022-06-19 11:42] LABS: Bacteria Urine 4+ (None Seen); RBC Urine 0-2 /HPF (0-2); UACC Culture Trigger YES
--- NOTE | 2022-06-19 12:15 | ED.GENADULT ---
HPI - General Adult General Chief complaint: General Medical Stated complaint: Swollen Hands, Feet swollen, cant walk Time Seen by Provider: 06/19/22 08:55 Source: patient Mode of arrival: ambulatory Limitations: language barrier (Trinidadian-speaking) History of Present Illness HPI narrative: 46yoF c PMHx of lupus, Hodgkin's disease, bone/lung/heart cancer, arthritis, fibromyalgia, degenerative disc disease to cervical/lumbar spine, osteoarthritis to multiple locations of the patient's body, and history of DVTs currently on Lovenox taking as prescribed who recently underwent a successful plasty and stent of right SFA by Dr. Hughes on 06/09/2022 who is presenting to the ER with complaints of bilateral hand swelling that she has had in the past due to her carpal tunnel syndrome, decreased sensation to bilateral lower extremities from the waist down, swelling to her lower extremities and difficulty walking. She reports that her family today helps her go down the stairs although she was able to walk down the stairs with her cane/walker. She reports that all of the symptoms have been present since her surgery on 06/09/2022. She reports that she called Dr. Hughes and Dr. Hughes said that she should come to the emergency department for further evaluation treatment as he believes that this is not related to her surgery. She denies any dizziness, headaches, neck pain/stiffness, trouble swallowing or breathing, chest pain, shortness of breath, dyspnea on exertion, orthopnea, palpitations, worsening neck or back pain, IV drug use, fevers, abdominal pain, dysuria, hematuria, black or bloody stools, calf tenderness, recent falls or trauma or any other symptoms complaints or concerns at this time. MD complaint: Bilateral hand/leg swelling/paresthesias and difficulty walking Onset (ago): day(s) (10 days) Location: left, right, upper extremity and lower extremity Radiation: non-radiation Severity: moderate Quality: aching and constant Pain Consistency: constant Relieving factors: none Exacerbating factors: other (Walking) Associated symptoms: other (See above) Treatments prior to arrival: none Related Data Home Medications Medication Instructions Recorded Confirmed benztropine 0.5 mg tablet 0.5 mg PO DAILY 05/01/20 06/09/22 albuterol sulfate 90 mcg/actuation 2 puff PO Q4-6H PRN Wheezing 10/02/21 06/09/22 aerosol inhaler (ProAir HFA) duloxetine 60 mg capsule,delayed 1 cap PO BID 10/02/21 06/09/22 release famotidine 20 mg tablet 1 tab PO BID@1200,2100 10/02/21 06/09/22 ferrous sulfate 325 mg (65 mg 1 tab PO QAM 10/02/21 06/09/22 iron) tablet (FeroSul) gabapentin 400 mg capsule 400 mg PO TID 10/22/21 06/09/22 risperidone 1 mg tablet 0.5 mg PO DAILY PRN Agitation 10/22/21 06/09/22 trazodone 150 mg tablet 1 tab PO BEDTIME PRN Sleep 10/22/21 06/09/22 nicotine 14 mg/24 hr daily 1 patch topical DAILY 03/01/22 06/09/22 transdermal patch hydrochlorothiazide 12.5 mg tablet 12.5 mg PO DAILY 03/02/22 06/09/22 alprazolam 2 mg tablet 2 mg PO BEDTIME PRN Anxiety 04/19/22 06/09/22 docusate sodium 100 mg capsule 100 mg PO BEDTIME PRN Constipation 04/19/22 06/09/22 oxycodone-acetaminophen 5 mg-325 1 tab PO Q8H PRN pain 04/19/22 06/09/22 mg tablet Previous Rx's Medication Instructions Recorded adhesive bandage 1 #20 ea 05/21/20 folic acid 1 mg tablet 1 mg PO QAM #90 tabs 02/11/21 syringe with needle, safety 1 mL #50 ea 02/11/21 28 gauge x 1/2 (Monoject TB Safety Syringe) baclofen 5 mg tablet 5 mg PO TID PRN Muscle spasms #10 09/08/21 tabs ursodiol 500 mg tablet 500 mg PO BID #90 tabs 10/08/21 aspirin 81 mg capsule 81 mg PO DAILY 14 days #14 caps 02/18/22 umeclidinium 62.5 mcg/actuation 1 inh inhalation DAILY 30 days #1 03/02/22 blister powder for inhalation ea (Ibeth Jang) diclofenac sodium 1 % topical gel 4 g topical QID #100 grams 03/28/22 adalimumab 40 mg/0.4 mL 40 mg (0.4 mL) subcut Q2W #2 kits 08/29/22 subcutaneous pen kit (Humira(CF) Pen) oxycodone 5 mg tablet 5 mg PO Q8H PRN pain #10 tabs 04/18/22 enoxaparin 80 mg/0.8 mL 80 mg (0.8 mL) subcut DAILY dvt in 05/17/22 subcutaneous syringe (Lovenox) right lower extremity failed eliquis #8 mL methotrexate sodium 2.5 mg tablet 15 mg PO QWEEK #24 tabs 05/18/22 prednisone 10 mg tablet 5 mg PO BID #30 tabs 05/18/22 pantoprazole 40 mg tablet,delayed 40 mg PO DAILY #90 tabs 05/26/22 release cephalexin 500 mg capsule 500 mg PO BID 7 days #14 caps 06/19/22 Allergies Allergy/AdvReac Type Severity Reaction Status Date / Time almond [ALMONDS] Allergy Severe ANAPHYLAXIS Verified 05/18/22 11:15 adhesive tape [ADHESIVE TAPE] Allergy Intermediate RASH Verified 05/18/22 11:15 morphine [MORPHINE] Allergy Intermediate GI UPSET, Verified 05/18/22 11:15 difficulty breathing tramadol [TRAMADOL] AdvReac Unknown NAUSEA & Verified 05/18/22 11:15 VOMITING Review of Systems Review of Systems: Constitutional : No Weight loss, No Fever, No Chills, No Night Sweats, No Fatigue, No Malaise ENT/Mouth : No Hearing loss, No Ear Pain, No Nasal Congestion, No Sinus Pain, No Hoarseness, No sore throat, No Rhinorrhea, No Swallowing Difficulty Eyes: No Eye Pain, No Swelling, No Redness, No Foreign Body, No Discharge, No Vision Changes Cardiovascular : No Chest Pain, No SOB, No Dyspnea on Exertion, No Orthopnea, No Edema, No Palpitations Respiratory : No Cough, No Sputum, No Wheezing, No Smoke Exposure, No Dyspnea Gastrointestinal : No Nausea, No Vomiting, No Diarrhea, No Constipation, No abdominal Pain, No Hematochezia, No Melena Genitourinary : no irregular bleeding, No Dysuria, No Urinary Frequency, No Hematuria, No Urinary Incontinence, No Urgency, No Flank Pain, No Urinary Flow Changes, No Hesitancy Musculoskeletal : + bilateral hand/leg/feet joint pain, No Myalgias, No Joint Swelling Skin : No Skin Lesions, No rash Neuro : + numbness/paresthesias, + General weakness, No Focal weakness, No Weakness, No Loss of Consciousness, No Dizziness, No Headache Psych : No Anxiety/Panic, No Depression, No SI/HI/AH/VH, No Social Issues, Heme/Lymph: No Bruising, No Bleeding,No Lymphadenopathy Endocrine : No Polyuria, No Polydipsia, No Temperature Intolerance Yes all other systems are reviewed and are negative [facility] Past Medical History Attestation statement: The following information was validated with the patient. Source: old records reviewed and nursing notes reviewed Medical History Acute arthritis Bleeding hemorrhoid Bone cancer Cancer of heart Chronic GERD De Quervain's disease (tenosynovitis) Degeneration of intervertebral disc at C4-C5 level Degeneration, intervertebral disc, lumbar Depressive disorder Esophageal dysphagia Fibromyalgia Gallstones History of chemotherapy History of chemotherapy Hodgkin disease Lung cancer Nocturia Osteoarthritis of spine with radiculopathy, lumbar region Rheumatoid arthritis involving multiple sites Seropositive rheumatoid arthritis Stress incontinence in female Systemic lupus erythematosus Urgency-frequency syndrome Vitamin D deficiency Surgical History H/O tubal ligation History of angioplasty of vein History of biopsy History of esophagogastroduodenoscopy (EGD) History of lymph node dissection of left axilla History of repair of inguinal hernia Hx laparoscopic cholecystectomy Hx of colonoscopy Hx of endoscopy Family History Family History Maternal Grandmother Ovarian cancer Social History Social History Household Members: Spouse Housing: Apartment Are you a primary care transition mgr to a significant other at home: No Do 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 have 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 or other home services: 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) Alcohol intake: current Alcohol intake frequency: does not drink Patient Tobacco Use Status: Never used Tobacco Tobacco use type: Cigarette Cigarettes Per Day: 4 Substance Use Type: Marijuana Advance Directives: No Advance Directives Date on File: 09/23/20 service: No Current occupational status: disabled 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 Blood pressure normal. Heart rate normal. Respiration rate normal. Temperature normal. Oxygen saturation normal. Appearance: Alert. Oriented X3. No acute distress. Head: Normal external exam. Normocephalic. Atraumatic. Eyes: PERRLA. EOMI. Conjunctiva and sclera normal. Eyelids normal. ENT: Pharynx normal. Uvula midline. Moist mucous membranes. No lesions/ulcerations or masses noted on the tongue. Normal voice. No trismus noted. No drooling noted. No muffled voice noted. Neck: Normal inspection. Neck supple. FROM. No adenopathy. Thyroid Normal. No tracheal deviation noted. No crepitus is noted. No meningeal signs. No neck mass noted. No signs of trauma noted. CVS: Normal heart rate and rhythm. Heart sound normal. Pulses normal throughout. No murmurs/rales/gallops. Respiratory: No respiratory distress. Painless inspiration. Breath sounds normal. No wheezes/rales/rhonchi noted. Chest nontender. No crepitus is noted. No signs of trauma noted. No accessory muscle usage noted or decreased air movement noted. No signs of trauma. Abdomen: Soft and nontender. Bowel sounds normal in all 4 quadrants. No distention noted. No organomegaly noted. No visible injury noted. Back: No CVA tenderness. Full range of motion noted. Nontender. No signs of trauma. Patient neuro intact bilaterally and distally on all 4 extremities. Patient's reflexes intact bilaterally and distally on all 4 extremities. No rashes/lesion/induration/fluctuance or signs of infection noted. Skin: Skin warm and dry. Normal skin color. Normal skin turgor. No rashes/lesions/lacerations noted. Extremities: Patient does have some mild soft tissue swelling and tenderness to palpation to bilateral hands. Patient also has tenderness palpation to bilateral knees although she has full range of motion of bilateral knee joints. No obvious ligamentous or tendon injury noted. Not consistent with septic joints to hands/knees or ankle or foot joints. She is moving all extremities no lower extremity edema noted at this time. No calf tenderness noted at this time. Otherwise all other extremities exhibit normal range of motion. Neuro: Oriented X 3. No motor deficit. No sensory deficit. Reflexes normal. Normal steady gait with her walker. No focal neuro deficits noted. CN's II-XII intact bilaterally? Vascular: + radial pulses/+ 2 distal pedal pulses/+2 dorsalis pedis b/l. Normal cap refill. No cyanosis noted to upper extremity nails and lower extremity toes nails. Course Course Course Narrative: 46yoF c PMHx of lupus, Hodgkin's disease, bone/lung/heart cancer, arthritis, fibromyalgia, degenerative disc disease to cervical/lumbar spine, osteoarthritis to multiple locations of the patient's body, and history of DVTs currently on Lovenox taking as prescribed who recently underwent a successful plasty and stent of right SFA by Dr. Hughes on 06/09/2022 who is presenting to the ER with complaints of bilateral hand swelling that she has had in the past due to her carpal tunnel syndrome, decreased sensation to bilateral lower extremities from the waist down, swelling to her lower extremities and difficulty walking. She reports that her family today helps her go down the stairs although she was able to walk down the stairs with her cane/walker. She reports that all of the symptoms have been present since her surgery on 06/09/2022. She reports that she called Dr. Hughes and Dr. Hughes said that she should come to the emergency department for further evaluation treatment as he believes that this is not related to her surgery. Patient has been seen here multiple times for similar complaint. It appears that she was just recently seen by pain management as well. On exam patient has full range of motion of all extremities. No obvious pitting edema to upper or lower extremities. She has no cyanosis noted to upper or lower extremities. She has normal cap refill. No pitting edema noted. She has a normal steady gait. Therefore labs were obtained and patient mild baseline anemia which is similar compared to prior. Carbon dioxide 21. Otherwise all other labs are within normal limits. Patient positive for UTI therefore placed on antibiotics. CT scan of brain within normal limits no acute processes noted. Left knee x-ray within normal limits no acute processes noted. Bilateral hand and wrist x-rays revealed chronic changes such as osteoarthritis and soft tissue swelling otherwise no other acute processes. Chest x-ray within normal limits. EKG is normal sinus rhythm with ventricular rate of 85 with LA interval of 170 with LVH otherwise no acute ischemic change are noted similar compared to prior. Therefore I ambulated the patient myself due to she declined physical therapy evaluation for short-term rehab. Reports that she can walk with her cane/walker and like she normally does at home and she has [employer] services with her son and her [id number] take care of her therefore she does not want to go to short-term rehab she reports she will follow up with her primary care provider. Instructed to return if any new or worsening symptoms. Patient understands agrees with this plan. Medications Administered Discontinued Medications Generic Name Dose Route Start Last Admin Trade Name Freq PRN Reason Stop Dose Admin Oxycodone HCl 5 mg 06/19/22 09:39 06/19/22 10:12 Oxycodone Hcl Immed Release 5 Mg Tablet PO 06/19/22 09:40 5 mg ONCE ONE Administration Medical Decision Making Medical Records Medical records reviewed: Yes I reviewed the patient's medical records. Lab Data Lab results reviewed: Yes I reviewed the patient's lab results. Result diagrams: 06/19/22 09:57 06/19/22 09:57 Labs: Lab Results 06/19/22 06/19/22 06/19/22 Range/Units 09:57 09:57 09:57 WBC 6.8 (4.8-10.8) X10*3/uL RBC 3.67 L (4.20-5.50) X10*6/uL Hgb 11.1 L (12.0-16.0) g/dl Hct 34.3 L (37.0-47.0) % MCV 93.5 (80.0-98.0) fL MCH 30.2 (27.0-33.0) pg MCHC 32.4 (31.0-35.0) g/dl RDW 13.9 (11.0-16.0) % Plt Count 309 (160-400) X10*3/uL MPV 9.6 (9.4-12.3) fL Immature Gran % (Auto) 0.6 H (0.0-0.4) % Neut % (Auto) 71.6 (45-73) % Lymph % (Auto) 21.8 (20-40) % Burnett % (Auto) 5.0 (2-11) % Eos % (Auto) 0.7 (0-4) % Baso % (Auto) 0.3 (0-2) % Lymph # (Auto) 1.5 (1.2-4.9) X10*3/uL Burnett # (Auto) 0.3 (0.1-1.2) X10*3/uL Eos # (Auto) 0.1 (0.0-0.4) X10*3/uL Baso # (Auto) 0.0 (0.0-0.2) X10*3/uL Abs Immat Gran (auto) 0.04 H (0.00-0.03) X10*3/uL Absolute Neuts (auto) 4.8 (2.0-8.3) x10*3/uL Absolute Nucleated RBC 0.000 (0.0-0.012) X10*3/uL Nucleated RBC % (auto) 0.0 (0.0-0.2) /100WBC PT 12.1 (10.0-13.1) SEC INR 1.1 (0.9-1.1) Sodium 140 (135-145) mmol/L Potassium 3.9 (3.3-5.1) mmol/L Chloride 105 (96-108) mmol/L Carbon Dioxide 21 L (22-29) mmol/L Anion Gap 18 (12-20) BUN 10 (9-16) mg/dL Creatinine 0.74 (0.5-1.4) mg/dL Estim Creat Clear Calc 105.5 Estimated GFR > 60 Random Glucose 92 (60-115) mg/dL Calcium 9.5 (8.4-10.2) mg/dL Magnesium 2.1 (1.6-2.6) mg/dL Total Bilirubin 0.2 (0.0-1.0) mg/dL AST 15 (5-31) U/L ALT 10 (0-31) U/L Alkaline Phosphatase 69 (39-117) U/L B-Natriuretic Peptide (<100) pg/mL Total Protein 8.7 H (6.5-8.0) g/dL Albumin 4.0 (3.5-5.0) g/dL Urine Color Urine Appearance Urine pH (5.0-9.0) Ur Specific Everest (1.005-1.025) Urine Protein (Neg-Trace) mg/dL Urine Glucose (UA) (Negative) mg/dL Urine Ketones (Negative) mg/dL Urine Blood (Negative) Urine Nitrite (Negative) Ur Leukocyte Esterase (Negative) Urine RBC (0-2) /HPF Urine WBC (0-5) /HPF Ur Squamous Epith Cells (0-2) /HPF Urine Bacteria (None Seen) Hyaline Casts (0-2) /LPF 06/19/22 06/19/22 Range/Units 09:57 11:14 WBC (4.8-10.8) X10*3/uL RBC (4.20-5.50) X10*6/uL Hgb (12.0-16.0) g/dl Hct (37.0-47.0) % MCV (80.0-98.0) fL MCH (27.0-33.0) pg MCHC (31.0-35.0) g/dl RDW (11.0-16.0) % Plt Count (160-400) X10*3/uL MPV (9.4-12.3) fL Immature Gran % (Auto) (0.0-0.4) % Neut % (Auto) (45-73) % Lymph % (Auto) (20-40) % Burnett % (Auto) (2-11) % Eos % (Auto) (0-4) % Baso % (Auto) (0-2) % Lymph # (Auto) (1.2-4.9) X10*3/uL Burnett # (Auto) (0.1-1.2) X10*3/uL Eos # (Auto) (0.0-0.4) X10*3/uL Baso # (Auto) (0.0-0.2) X10*3/uL Abs Immat Gran (auto) (0.00-0.03) X10*3/uL Absolute Neuts (auto) (2.0-8.3) x10*3/uL Absolute Nucleated RBC (0.0-0.012) X10*3/uL Nucleated RBC % (auto) (0.0-0.2) /100WBC PT (10.0-13.1) SEC INR (0.9-1.1) Sodium (135-145) mmol/L Potassium (3.3-5.1) mmol/L Chloride (96-108) mmol/L Carbon Dioxide (22-29) mmol/L Anion Gap (12-20) BUN (9-16) mg/dL Creatinine (0.5-1.4) mg/dL Estim Creat Clear Calc Estimated GFR Random Glucose (60-115) mg/dL Calcium (8.4-10.2) mg/dL Magnesium (1.6-2.6) mg/dL Total Bilirubin (0.0-1.0) mg/dL AST (5-31) U/L ALT (0-31) U/L Alkaline Phosphatase (39-117) U/L B-Natriuretic Peptide 15 (<100) pg/mL Total Protein (6.5-8.0) g/dL Albumin (3.5-5.0) g/dL Urine Color Yellow Urine Appearance Clear Urine pH 5.5 (5.0-9.0) Ur Specific Everest 1.025 (1.005-1.025) Urine Protein Trace (Neg-Trace) mg/dL Urine Glucose (UA) Negative (Negative) mg/dL Urine Ketones Negative (Negative) mg/dL Urine Blood Small (1+) H (Negative) Urine Nitrite Positive H (Negative) Ur Leukocyte Esterase Negative (Negative) Urine RBC 0-2 (0-2) /HPF Urine WBC 6-10 H (0-5) /HPF Ur Squamous Epith Cells 6-10 (0-2) /HPF Urine Bacteria 4+ (None Seen) Hyaline Casts 3-5 (0-2) /LPF Imaging Data CT scan of brain without contrast: Attestation: I personally reviewed and interpreted this imaging study as follows: Radiologist's impression: FINDINGS: The cortical sulci are normal. The lateral ventricles are symmetrical. The third and fourth ventricles are in their normal midline position. The basilar and prepontine cisterns are unremarkable. There is no acute intra or extracerebral abnormality. There is no mass effect or midline shift. Sections through the bony calvarium are unremarkable. The paranasal sinuses are clear. The bony orbits and orbital contents are unremarkable. CT/CT head/brain wo IV con IMPRESSION: No acute intracranial pathology. Chest x-ray: Attestation: I personally reviewed and interpreted this imaging study as follows: Radiologist's impression: FINDINGS: No significant abnormality is noted involving the heart, lungs, mediastinum, bony thorax or soft tissues. Surgical clips overlie the right axilla. XR/XR chest 2V IMPRESSION: No acute cardiopulmonary process. Left knee and bilateral hand and wrist x-rays: Attestation: I personally reviewed and interpreted this imaging study as follows: Radiologist's impression: FINDINGS: Mild to moderate soft tissue swelling is seen bilaterally. There is no acute fracture or dislocation. The carpal bones are normally aligned. Mild radiocarpal and distal radial ulnar degenerative joint changes are seen in the right hand.? XR/XR hand wrist LT IMPRESSION: ? 1. Mild to moderate soft tissue swelling bilaterally without acute underlying osseous abnormality. 2. Mild degenerative changes in the right wrist suggest osteoarthritis. ECG Data Attestation: I personally reviewed and interpreted this ECG as follows: Interpretation: EKG is normal sinus rhythm with ventricular rate of 85 with LA interval of 170 with LVH otherwise no acute ischemic change are noted similar compared to prior. Critical Care Time Critical Care Time Critical Care Time: Yes Total Critical Care Time: 60 Attestation: I personally attest to this time spent taking care of the patient Discharge Plan Discharge Clinical Impression: UTI (urinary tract infection), Osteoarthritis, Strain of left knee, Severe carpal tunnel syndrome of both wrists Patient Disposition: Home, Self-Care Instructions: Urinary Tract Infection in Women (ED), Osteoarthritis (ED) Prescriptions: New cephalexin 500 mg capsule 500 mg PO BID 7 Days Qty: 14 0RF No Action (DME) adhesive bandage 1 bandage See Rx Instructions .ROUTE .MEDSUPPLY Qty: 20 5RF Rx Instructions: Use after Methotrexate injection enoxaparin [Lovenox] 80 mg/0.8 mL syringe 80 mg subcut DAILY Qty: 8 6RF pantoprazole 40 mg tablet,delayed release (DR/EC) 40 mg PO DAILY Qty: 90 1RF benztropine 0.5 mg Tablet 0.5 mg PO DAILY baclofen 5 mg tablet 5 mg PO TID PRN (Reason: Muscle spasms) Qty: 10 0RF gabapentin 400 mg capsule 400 mg PO TID trazodone 150 mg tablet 1 tab PO BEDTIME PRN (Reason: Sleep) risperidone 1 mg tablet 0.5 mg PO DAILY PRN (Reason: Agitation) aspirin 81 mg capsule 81 mg PO DAILY 14 Days Qty: 14 0RF diclofenac sodium 1 % gel 4 g topical QID Qty: 100 0RF Rx Instructions: apply to single knee, ankle, foot; for foot includes sole/toes/top of foot oxycodone 5 mg tablet 5 mg PO Q8H PRN (Reason: pain) Qty: 10 0RF Rx Instructions: Partial Fill upon patient request. famotidine 20 mg tablet 1 tab PO BID@1200,2100 ferrous sulfate [FeroSul] 325 mg (65 mg iron) tablet 1 tab PO QAM albuterol sulfate [ProAir HFA] 90 mcg/actuation HFA aerosol inhaler 2 puff PO Q4-6H PRN (Reason: Wheezing) duloxetine 60 mg capsule,delayed release(DR/EC) 1 cap PO BID ursodiol 500 mg tablet 500 mg PO BID Qty: 90 1RF (DME) Monoject TB Safety Syringe 1 mL 28 gauge x 1/2 syringe See Rx Instructions .ROUTE .MEDSUPPLY Qty: 50 1RF Rx Instructions: As directed - use to inject Methorexate once per week folic acid 1 mg tablet 1 mg PO QAM Qty: 90 3RF oxycodone-acetaminophen 5-325 mg tablet 1 tab PO Q8H PRN (Reason: pain) docusate sodium 100 mg capsule 100 mg PO BEDTIME PRN (Reason: Constipation) alprazolam 2 mg tablet 2 mg PO BEDTIME PRN (Reason: Anxiety) Incruse Ellipta 62.5 mcg/actuation blister with device 1 inh inhalation DAILY 30 Days Qty: 1 6RF prednisone 10 mg tablet 5 mg PO BID Qty: 30 3RF methotrexate sodium 2.5 mg tablet 15 mg PO QWEEK Qty: 24 1RF nicotine 14 mg/24 hr patch 24 hour 1 patch topical DAILY Humira(CF) Pen 40 mg/0.4 mL pen injector kit 40 mg subcut Q2W Qty: 2 3RF hydrochlorothiazide 12.5 mg tablet 12.5 mg PO DAILY Referrals: Mackenzie Estrada MD [Primary Care Provider] - 1 day Print Language: Trinidadian
== END 2022-06-19 12:59 | disposition home or self-care (01) ==
PROVIDERS: Physician Assistant Medical; Emergency Provider Emergency Medicine Emergency Medical Services; PCP General Practice
DX: N39.0 Urinary tract infection, site not specified (principal); B96.20 Unspecified Escherichia coli [E. coli] as the cause of diseases classified elsewhere; G56.03 Carpal tunnel syndrome, bilateral upper limbs; S86.112A Strain of other muscle(s) and tendon(s) of posterior muscle group at lower leg level, left leg, initial encounter; X58.XXXA Exposure to other specified factors, initial encounter; M19.042 Primary osteoarthritis, left hand; M19.041 Primary osteoarthritis, right hand; L93.0 Discoid lupus erythematosus; C34.90 Malignant neoplasm of unspecified part of unspecified bronchus or lung; C79.51 Secondary malignant neoplasm of bone; C79.89 Secondary malignant neoplasm of other specified sites; F12.90 Cannabis use, unspecified, uncomplicated; F17.210 Nicotine dependence, cigarettes, uncomplicated; Y93.9 Activity, unspecified; Y92.9 Unspecified place or not applicable; Y99.9 Unspecified external cause status; Z79.01 Long term (current) use of anticoagulants; Z79.899 Other long term (current) drug therapy; Z79.82 Long term (current) use of aspirin; Z92.21 Personal history of antineoplastic chemotherapy
CPT/HCPCS: 36415; 70450; 71046; 73110; 73130; 73564; 80053; 81001; 83735; 83880; 85025; 85610; 87086; 87088; 87186; 93005; 99284; 99285

== ENCOUNTER 2022-06-21 09:27 | Outpatient (REF) | payer MEDICAID, SELFPAY ==
[2022-06-21 10:45] LABS: MANUAL DIFF FLAG NO
[2022-06-21 10:52] LABS: Basophils Percent Auto 0.3 % (0-2); Eosinophils Absolute Auto 0.1 X10*3/uL (0.0-0.4); Hematocrit 34.9 % (37.0-47.0); Hemoglobin 11.1 g/dl (12.0-16.0); Imm Gran Abs Auto 0.01 X10*3/uL (0.00-0.03); Imm Gran Pct Auto 0.2 % (0.0-0.4); Lymphocytes Absolute Auto 1.8 X10*3/uL (1.2-4.9); Lymphocytes Percent Auto 30.2 % (20-40); Mean Corpuscular HGB Conc 31.8 g/dl (31.0-35.0); Mean Corpuscular Volume 94.3 fL (80.0-98.0); Mean Platelet Volume 10.1 fL (9.4-12.3); Monocytes Absolute Auto 0.4 X10*3/uL (0.1-1.2); Neutrophils Absolute Auto 3.7 x10*3/uL (2.0-8.3); Neutrophils Percent Auto 62.3 % (45-73); Platelet Count 334 X10*3/uL (160-400); Red Cell Distribution Width 13.8 % (11.0-16.0); White Blood Count 5.9 X10*3/uL (4.8-10.8)
[2022-06-21 11:11] LABS: Alanine Aminotransferase 10 U/L (0-31); Alkaline Phosphatase 70 U/L (39-117); Anion Gap 16 (12-20); Aspartate Amino Transferase 14 U/L (5-31); Bilirubin Total 0.2 mg/dL (0.0-1.0); Blood Urea Nitrogen 12 mg/dL (9-16); C Reactive Protein 5.36 mg/dL (< or = 0.50); Calcium 9.5 mg/dL (8.4-10.2); Carbon Dioxide 23 mmol/L (22-29); Chloride 104 mmol/L (96-108); Estimated Glomerular Filt Rate > 60; Glucose Random 100 mg/dL (60-115); Potassium 4.3 mmol/L (3.3-5.1); Sodium 139 mmol/L (135-145); Total Protein 8.8 g/dL (6.5-8.0)
[2022-06-21 11:33] LABS: Erythrocyte Sedimentation Rate 97 MM/HR (0-20)
== END 2022-06-21 09:28 | disposition home or self-care (01) ==
LOC: HO.10HDL 09:27
PROVIDERS: Visit Provider Internal Medicine Rheumatology
DX: M05.9 Rheumatoid arthritis with rheumatoid factor, unspecified (principal); Z79.899 Other long term (current) drug therapy
CPT/HCPCS: 36415; 80053; 85025; 85652; 86140; 99212

== ENCOUNTER → 2022-06-22 10:22 | Outpatient (BNVA) | payer MEDICAID, SELFPAY | PROVIDERS: PCP General Practice; Visit Provider Surgery Vascular Surgery | DX: I73.9 Peripheral vascular disease, unspecified (principal) | CPT/HCPCS: 99212 ==

== ENCOUNTER → 2022-07-20 12:26 | Outpatient (BNVA) | payer MEDICAID, SELFPAY | PROVIDERS: PCP General Practice; Visit Provider Orthopaedic Surgery | DX: M05.9 Rheumatoid arthritis with rheumatoid factor, unspecified (principal); M25.642 Stiffness of left hand, not elsewhere classified; G56.01 Carpal tunnel syndrome, right upper limb | CPT/HCPCS: 99212 ==

== ENCOUNTER → 2022-08-16 08:44 | Outpatient (BNVA) | payer MEDICAID, SELFPAY | PROVIDERS: PCP General Practice; Visit Provider Internal Medicine Rheumatology | DX: M79.7 Fibromyalgia (principal); M05.9 Rheumatoid arthritis with rheumatoid factor, unspecified; Z79.899 Other long term (current) drug therapy | CPT/HCPCS: 36415; 82565; 84450; 84460; 85652; 86140; 99212 ==

== ENCOUNTER 2022-08-16 10:09 | Outpatient (REF) | payer MEDICAID, SELFPAY ==
[2022-08-16 11:09] LABS: Alanine Aminotransferase 9 U/L (0-31); Aspartate Amino Transferase 13 U/L (5-31); C Reactive Protein 0.71 mg/dL (< or = 0.50); Estimated Glomerular Filt Rate > 60
[2022-08-16 11:34] LABS: Erythrocyte Sedimentation Rate 71 MM/HR (0-20)
== END 2022-08-16 10:10 | disposition home or self-care (01) ==
LOC: HO.10HDL 10:09
PROVIDERS: Visit Provider Internal Medicine Rheumatology
DX: M05.9 Rheumatoid arthritis with rheumatoid factor, unspecified (principal); M79.7 Fibromyalgia; Z79.899 Other long term (current) drug therapy
CPT/HCPCS: 36415; 82565; 84450; 84460; 85652; 86140

== ENCOUNTER 2022-08-17 10:00 | Outpatient (RCR) | payer MEDICAID, SELFPAY ==
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
--- NOTE | 2022-08-17 11:49 | MHC.OT.DC ---
[address] [phone] F: [phone] Occupational Therapy Discharge Note Provider: Becky Card Diagnosis: Rheumatoid arthritis Right CTS and DeQuervains tenosynovitis Left hand pain and stiffness Date of Surgery: Date of Evaluation: 07/29/22 Date of Discharge: Treatments to Date: 4 Cancellations to Date: No Shows to Date: Discharge Status: Independent with HEP Patient Elected to Stop Discharge Summary: Ginette was seen today after missing a few appointments. She states pain in bilateral hands today is 10/10, not much seems to help her pain. She does demonstrate slight improvement in making a fist. Pt. had apt with her PCP this week. It is believed that much of the pain is from flare up of RA and also underlying fibromyalgia. Pt w/ low tolerance to manual therapy - encouraged to try passive and gentle AROM at home; all joints. We reviewed all exercises for HEP including those for carpal tunnel. At this time, pt wishes to end with occupational therapy and begin with new referral for physical therapy to address neck/back pain. Electronically Signed By: Shilpi Bishop MS OTR/L Reviewed/agree with student documentation: Therapist: Please Sign and return to therapist, thank you for your referral.
== END 2022-08-17 11:50 | disposition home or self-care (01) ==
LOC: HO.OT 10:00
PROVIDERS: PCP General Practice; Visit Provider Orthopaedic Surgery
DX: M05.9 Rheumatoid arthritis with rheumatoid factor, unspecified (principal); M25.642 Stiffness of left hand, not elsewhere classified; M32.9 Systemic lupus erythematosus, unspecified; M79.7 Fibromyalgia
CPT/HCPCS: 97110; 97140; 97166

== ENCOUNTER 2022-08-20 08:20 | Outpatient (REF) | payer MEDICAID, SELFPAY ==
--- NOTE | ~2022-08-20 | XR_ITS ---
EXAMINATION: XR SHOULDER, RIGHT CLINICAL INFORMATION: Pain. COMPARISON: None TECHNIQUE: AP neutral, scapula Y, and axillary views of the right shoulder are submitted. FINDINGS: The bones and soft tissues are normal. No fracture. Glenohumeral and acromioclavicular alignment is anatomic with normal joint space. No abnormal soft tissue calcifications. There are right axillary surgical clips. XR/XR shoulder RT min 2V IMPRESSION: Normal right shoulder.
== END 2022-08-20 08:21 | disposition home or self-care (01) ==
LOC: HO.HOSX 08:20
PROVIDERS: Visit Provider Physician Assistant
DX: M25.511 Pain in right shoulder (principal); M54.2 Cervicalgia; M79.7 Fibromyalgia; Z79.899 Other long term (current) drug therapy
CPT/HCPCS: 73030; 99212

== ENCOUNTER 2022-08-20 09:47 | Emergency (ER) | payer MEDICAID, SELFPAY ==
[2022-08-20 10:01] VITALS: BP 142/91; PULSE 80; RESP 18; TEMP 36.8; O2SAT 97; BMI 45.1
--- NOTE | 2022-08-20 10:25 | ED_ITS ---
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 Hughes on 06/09/2022?who presents with com plaints of bilateral leg pain radiating from her knees down to her feet, inability to bear weight and abscess to left armpit. Patient reports acute on chronic pain in her legs the last 3 days. No injuries or falls. No associated weakness, numbness or tingling of the legs. No swelling. 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 She is on methotrexate for her rheumatoid arthritis. Patient reports she is also taking Lovenox and has been compliant with the medication. She denies any missed doses. She denies any swelling of the legs. Patient tells me she was taking Percocet and Flexeril but ran out of the me dication. Patient also noticed abscess left axilla last night. No fevers, chills, systemic symptoms <MARY Davis Last Filed: 08/20/22 11:44> Related Data Home medications: Home Medications Medication Instructions Recorded Confirmed benztropine 0.5 mg tablet 0.5 mg PO DAILY 05/01/20 08/16/22 albuterol sulfate 90 mcg/actuation 2 puff PO Q4-6H PRN Wheezing 10/02/21 08/16/22 aerosol inhaler (ProAir HFA) duloxetine 60 mg capsule,delayed 1 cap PO BID 10/02/21 08/16/22 release famotidine 20 mg tablet 1 tab PO BID@1200,2100 10/02/21 08/16/22 ferrous sulfate 325 mg (65 mg 1 tab PO QAM 10/02/21 08/16/22 iron) tablet (FeroSul) gabapentin 400 mg capsule 400 mg PO TID 10/22/21 08/16/22 risperidone 1 mg tablet 0.5 mg PO DAILY PRN Agitation 10/22/21 08/16/22 trazodone 150 mg tablet 1 tab PO BEDTIME PRN Sleep 10/22/21 08/16/22 nicotine 14 mg/24 hr daily 1 patch topical DAILY 03/01/22 08/16/22 transdermal patch hydrochlorothiazide 12.5 mg tablet 12.5 mg PO DAILY 03/02/22 08/16/22 alprazolam 2 mg tablet 2 mg PO BEDTIME PRN Anxiety 04/19/22 08/16/22 docusate sodium 100 mg capsule 100 mg PO BEDTIME PRN Constipation 04/19/22 08/16/22 oxycodone-acetaminophen 5 mg-325 1 tab PO Q8H PRN pain 04/19/22 08/16/22 mg tablet Previous Rx's Medication Instructions Recorded adhesive bandage 1 #20 ea 05/21/20 baclofen 5 mg tablet 5 mg PO TID PRN Muscle spasms #10 09/08/21 tabs ursodiol 500 mg tablet 500 mg PO BID #90 tabs 10/08/21 aspirin 81 mg capsule 81 mg PO DAILY 14 days #14 caps 02/18/22 umeclidinium 62.5 mcg/actuation 1 inh inhalation DAILY 30 days #1 03/02/22 blister powder for inhalation ea (Incruse Ellipta) diclofenac sodium 1 % topical gel 4 g topical QID #100 grams 03/28/22 oxycodone 5 mg tablet 5 mg PO Q8H PRN pain #10 tabs 04/18/22 enoxaparin 80 mg/0.8 mL 80 mg (0.8 mL) subcut DAILY dvt in 05/17/22 subcutaneous syringe (Lovenox) right lower extremity failed eliquis #8 mL pantoprazole 40 mg tablet,delayed 40 mg PO DAILY #90 tabs 05/26/22 release methotrexate sodium 2.5 mg tablet 20 mg PO QWEEK #32 tabs 06/21/22 prednisone 10 mg tablet 10 mg PO BID #60 tabs 06/21/22 tocilizumab 162 mg/0.9 mL 162 mg (0.9 mL) subcut Q2W #1.8 mL 06/28/22 subcutaneous pen injector folic acid 1 mg tablet 1 mg PO QAM #90 tabs 08/17/22 acetaminophen 325 mg tablet 650 mg PO Q6H PRN pain #30 tabs 08/20/22 (Tylenol) cyclobenzaprine 10 mg tablet 10 mg PO TID PRN muscle spasm #10 08/20/22 tabs doxycycline monohydrate 100 mg 100 mg PO BID #14 caps 08/20/22 capsule lidocaine 5 % topical patch 1 patch topical DAILY #15 ea 08/20/22 (Lidoderm) <Orquidea Mon NP - Last Filed: 08/20/22 11:44> Allergies/adverse reactions: Allergies Allergy/AdvReac Type Severity Reaction Status Date / Time almond [ALMONDS] Allergy Severe ANAPHYLAXIS Verified 08/20/22 14:41 adhesive tape [ADHESIVE TAPE] Allergy Intermediate RASH Verified 08/20/22 14:41 morphine [MORPHINE] Allergy Intermediate GI UPSET, Verified 08/20/22 14:41 difficulty breathing tramadol [TRAMADOL] AdvReac Unknown NAUSEA & Verified 08/20/22 14:41 VOMITING <Orquidea Mon NP - Last Filed: 08/20/22 11:44> Review of Systems Review of Systems: Yes all other systems are reviewed and are negative <Orquidea Mon NP - Last Filed: 08/20/22 11:44> Constitutional: Constitutional: Reports no additional constitutional complaints, Denies body ache(s), Denies chills, Denies fever(s), Denies headache(s) and Denies weakness <Orquidea Mon NP - Last Filed: 08/20/22 11:44> Eyes: Eyes: Reports no additional eye complaints and Denies change in vision <Orquidea Mon, [employer]ATING [employer]OR - Last Filed: 08/20/22 11:44> ENT: Reports system reviewed and no additional complaints, except as documented, Denies dizziness, Denies headache(s), Denies nasal congestion, Denies nasal discharge and Denies neck pain <Orquidea Mon, [employer]OR - Last Filed: 08/20/22 11:44> Cardiovascular: Cardiovascular: Reports no additional cardiovascular complaints, Denies chest pain, Denies leg edema and Denies dyspnea <Orquidea Mon, [employer]ATING [employer]OR - Last Filed: 08/20/22 11:44> Respiratory: Respiratory: Reports no additional respiratory complaints, Denies cough and Denies dyspnea <Orquidea Mon, [employer]ATING [employer]OR - Last Filed: 08/20/22 11:44> Gastrointestinal: Gastrointestinal: Reports no additional gastrointestinal complaints, Denies abdominal pain, Denies diarrhea, Denies nausea and Denies vomiting <Orquidea Mon, [employer]OR - Last Filed: 08/20/22 11:44> Genitourinary: Genitourinary: Reports no additional female genitourinary complaints and Denies urinary incontinence <Orquidea Mon, [employer]OR - Last Filed: 08/20/22 11:44> Musculoskeletal: Musculoskeletal: Reports no additional musculoskeletal complaints, Denies back pain, Reports arthralgias, Denies joint swelling, Denies neck pain, Denies numbness and Denies tingling <Orquidea Mon [employer] - Last Filed: 08/20/22 11:44> Integumentary/Breasts: Skin/Breast: Reports system reviewed and no additional complaints, except as docu, Reports swelling, Reports erythema and Denies rash <Orquidea Mon, [employer]OR - Last Filed: 08/20/22 11:44> Neurologic: Reports system reviewed and no additional complaints, except as documented, Denies dizziness, Denies headache(s), Denies numbness, Denies tingli ng and Denies weakness <Orquidea Mon, [employer]OR - Last Filed: 08/20/22 11:44> PMF Past Medical History Attestation statement: The following information was validated with the patient. <Oqruideajosé antonio Mon NP - Last Filed: 08/20/22 11:44> Source: old records reviewed and nursing notes reviewed <Orquidea Mon NP - Last Filed: 08/20/22 11:44> Medical History: Medical History Acute arthritis Bleeding hemorrhoid Bone cancer Cancer of heart Chronic GERD De Quervain's disease (tenosynovitis) Degeneration of intervertebral disc at C4-C5 level Degeneration, intervertebral disc, lumbar Depressive disorder Esophageal dysphagia Fibromyalgia Gallstones History of chemotherapy History of chemotherapy Hodgkin disease Lung cancer Nocturia Osteoarthritis of spine with radiculopathy, lumbar region Rheumatoid arthritis involving multiple sites Seropositive rheumatoid arthritis Stress incontinence in female Systemic lupus erythematosus Urgency-frequency syndrome Vitamin D deficiency <Orquidea Mon NP - Last Filed: 08/20/22 11:44> Surgical History: Surgical History H/O tubal ligation History of angioplasty of vein History of biopsy History of esophagogastroduodenoscopy (EGD) History of lymph node dissection of left axilla History of repair of inguinal hernia Hx laparoscopic cholecystectomy Hx of colonoscopy Hx of endoscopy <Orquidea Mon NP - Last Filed: 08/20/22 11:44> Family History Family History: Family History Maternal Grandmother Ovarian cancer <Orquidea Mon NP - Last Filed: 08/20/22 11:44> Social History Social History: Social History Household Members: Spouse Housing: Apartment Are you a primary rn critical care to a significant other at home: No Do 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 have 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) Alcohol intake: never Patient Tobacco Use Status: Never used Tobacco Tobacco use type: Cigarette Cigarettes Per Day: 4 Substance Use Type: Marijuana Advance Directives Date on File: 09/23/20 service: No Current occupational status: disabled 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 <Orquidea Mon NP - Last Filed: 08/20/22 11:44> Physical Exam ED Vital Signs: Vital Signs - 24 hr 08/20/22 10:01 08/20/22 10:57 08/20/22 11:30 Temperature 98.2 F 97.7 F Pulse Rate 80 59 63 Respiratory Rate 18 16 18 Blood Pressure 142/91 H 129/80 131/87 Pulse Oximetry 97 98 97 Oxygen Delivery Method Room Air Room Air Room Air BMI result Body Mass Index 45.1 <Orquidea Mon NP - Last Filed: 08/20/22 11:44> Vital Signs - 24 hr 08/20/22 10:01 08/20/22 10:57 08/20/22 11:30 Temperature 98.2 F 97.7 F Pulse Rate 80 59 63 Respiratory Rate 18 16 18 Blood Pressure 142/91 H 129/80 131/87 Pulse Oximetry 97 98 97 Oxygen Delivery Method Room Air Room Air Room Air BMI result Body Mass Index 45.1 <Serg Mueller MD - Last Filed: 08/20/22 16:08> Const General: cooperative, healthy appearing, comfortable and no acute distress <Orquidea Mon NP - Last Filed: 08/20/22 11:44> Orientation/consciousness: patient oriented x3 <Orquidea Mon NP - Last Filed: 08/20/22 11:44> Limitations: no limitations <Orquidae Mon NP - Last Filed: 08/20/22 11:44> HENMT Head: Yes normal to inspection <Orquidea Mon NP - Last Filed: 08/20/22 11:44> Ears: hearing grossly normal bilaterally <Orquidea Mon NP - Last Filed: 08/20/22 11:44> Eyes General: appearance normal, both eyes and all related structures <Orquidea Mon NP - Last Filed: 08/20/22 11:44> Pupils: Equal, round and reactive pupils present <Orquidea Mon NP - Last Filed: 08/20/22 11:44> Neck Neck: Yes normal visual inspection, Yes full ROM and Yes no lymphadenopathy <Orquidea Mon NP - Last Filed: 08/20/22 11:44> Chest Chest palpation & inspection: normal inspection of the chest <Orquidea Mon NP - Last Filed: 08/20/22 11:44> Chest/axillae images: 1. Small abscess with no induration,. Local swelling, redness, tenderness. <Orquidea Mon [employer]ATING [employer]OR - Last Filed: 08/20/22 11:44> Resp Effort & Inspection: normal respiratory effort <Orquidea Mon [employer]ATING [employer]OR - Last Filed: 08/20/22 11:44> Auscultation: clear to auscultation bilaterally <Orquidea Mon [employer]OR - Last Filed: 08/20/22 11:44> Cardio Rate: regular rate <Orquidea Mon [employer]ATING [employer]OR - Last Filed: 08/20/22 11:44> Rhythm: regular rhythm <Orquidea Mon [employer]CA[employer]ATING [employer]OR - Last Filed: 08/20/22 11:44> Peripheral pulses: Peripheral pulses 2+ throughout <Orquidea Mon [employer]CA[employer]ATING [employer]OR - Last Filed: 08/20/22 11:44> GI Inspection: Yes normal to inspection <Orquidea Mon [employer]ATING [employer]OR - Last Filed: 08/20/22 11:44> Palpation (GI): Soft to palpation and nontender <Orquidea Mon [employer]ATING [employer]OR - Last Filed: 08/20/22 11:44> General: Yes no CVA tenderness <Orquidea Mon [employer]ATING [employer]OR - Last Filed: 08/20/22 11:44> Back/Spine/Pelvis Back: no CVA tenderness <Orquidea Mon [employer]ATING [employer]OR - Last Filed: 08/20/22 11:44> Thoracic/Lumbar Spine: thoracic and lumbar spine normal to inspection <Orquidea Mon [employer]ATING [employer]OR - Last Filed: 08/20/22 11:44> Skin General skin exam: no rashes or lesions noted <Orquidea Mon [employer]ATING [employer]OR - Last Filed: 08/20/22 11:44> Neuro General: patient oriented x3 and moves all extremities <Orquidea Mon [employer]ATING [employer]OR - Last Filed: 08/20/22 11:44> Cranial nerves: Yes Equal, round and reactive pupils present <Orquidea Mon [employer]ATING [employer]OR - Last Filed: 08/20/22 11:44> Cognition (Neuro): normal cognition <Orquidea Mon NP - Last Filed: 08/20/22 11:44> Gait exam (Neuro): Normal gait present <Orquidea Mon NP - Last Filed: 08/20/22 11:44> Extrem Other: There is no lower extremity swelling, redness, warmth noted. There are palpable DP and PT pulses in both lower extremities with no difficulty. Sensation is normal. DTRs 2+. Patient with diffuse tenderness to the bilateral knees, lower legs, ankles, feet. Full range of motion of the ankles, feet, hands. <Orquidea Mon NP - Last Filed: 08/20/22 11:44> General: Yes normal to inspection, Yes no pedal edema and Yes no calf tenderness <Orquidea Mon NP - Last Filed: 08/20/22 11:44> Medications Administered Discontinued Medications Generic Name Dose Route Start Last Admin Trade Name Freq PRN Reason Stop Dose Admin Acetaminophen 975 mg 08/20/22 10:47 08/20/22 11:32 Acetaminophen 325 Mg Tablet PO 08/20/22 10:48 975 mg ONCE ONE Administration Cyclobenzaprine HCl 10 mg 08/20/22 10:47 08/20/22 11:32 Cyclobenzaprine Hcl 10 Mg Tablet PO 08/20/22 10:48 10 mg ONCE ONE Administration <Orquidea Mon NP - Last Filed: 08/20/22 11:44> Medications Administered Discontinued Medications Generic Name Dose Route Start Last Admin Trade Name Freq PRN Reason Stop Dose Admin Acetaminophen 975 mg 08/20/22 10:47 08/20/22 11:32 Acetaminophen 325 Mg Tablet PO 08/20/22 10:48 975 mg ONCE ONE Administration Cyclobenzaprine HCl 10 mg 08/20/22 10:47 08/20/22 11:32 Cyclobenzaprine Hcl 10 Mg Tablet PO 08/20/22 10:48 10 mg ONCE ONE Administration <Serg Mueller MD - Last Filed: 08/20/22 16:08> Medical Decision Making Medical Decision Making MDM Narrative: 47-year-old female with an extensive medical history including but not limited to lupus, Hodgkin's disease, bone/lung/heart cancer, rheumatoid arthritis, fibromyalgia, degenerative disc disease to cervical/lumbar spine, osteoarthritis to multiple locations of the patient's body, and history of DVTs currently on Lovenox taking as prescribed who recently underwent a successful plasty and stent of right SFA by Dr. Hughes on 06/09/2022 who is presenting to the ER with complaints of bilateral lower legs pain from the knees radiating down to the feet with no known injury or trauma. No associated numbness, tingling, weakness, swelling. Patient reports physical and for 3 days. She did see her [employer] 3 days ago but did not have pain then. On exam vitals are stable. Patient with diffuse tenderness the bilateral lower legs with full range of motion. No appreciable redness, swelling, warmth. Distal pulses are normal. Low concern for bony abnormality with no reports of injury or trauma. Low concern for DVT as patient has been on Lovenox and has been compliant with no missed doses. Likely musculoskeletal. Patient may also have pain secondary to her fibromyalgia rheumatoid arthritis. Patient was taking Percocet and flexeril but ran out of thesemedications. 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 I will start the patient on Flexeril, APAP p.r.n., Lidoderm patches. Patient also very small abscess the left axilla. Recommend patient use warm compresses and start an antibiotic. Reviewed worrisome signs and symptoms of when to return to the emergency room. Comfortable discharge home. <Orquidea Mon NP - Last Filed: 08/20/22 11:44> Differential Diagnosis Differential Diagnoses: The differential diagnosis associated with the presentation includes <Orquidea Mon NP - Last Filed: 08/20/22 11:44> Discussed in MDM above <Orquidea Mon NP - Last Filed: 08/20/22 11:44> Attestation Attending Attestation: I personally reviewed PA/resident/nurse practitioner note. I reviewed a all results and treatment plan. I agree with the assessment and plan. I agree with disposition <Serg Mueller MD - Last Filed: 08/20/22 16:08> Discharge Plan Discharge Clinical Impression: Osteoarthritis, Abscess <Orquidea Mon NP - Last Filed: 08/20/22 11:44> Patient Disposition: Home, Self-Care <Orquidea Mon NP - Last Filed: 08/20/22 11:44> Instructions: Osteoarthritis (ED), Abscess (ED) <Orquidea Mon NP - Last Filed: 08/20/22 11:44> Additional Instructions: Contin?e tomando addie medicamentos en el hogar. Aplique ba?os tibios en el ?paige afectada. Seguimiento con kessler reumat?logo ambulatorio <Orquidea Mon NP - Last Filed: 08/20/22 11:44> Prescriptions: New cyclobenzaprine 10 mg tablet 10 mg PO TID PRN (Reason: muscle spasm) Qty: 10 0RF acetaminophen [Tylenol] 325 mg tablet 650 mg PO Q6H PRN (Reason: pain) Qty: 30 0RF doxycycline monohydrate 100 mg capsule 100 mg PO BID Qty: 14 0RF lidocaine [Lidoderm] 5 % adhesive patch,medicated 1 patch topical DAILY Qty: 15 0RF Rx Instructions: leave on most painful area for up to 12 hrs No Action (DME) adhesive bandage 1 bandage See Rx Instructions .ROUTE .MEDSUPPLY Qty: 20 5RF Rx Instructions: Use after Methotrexate injection enoxaparin [Lovenox] 80 mg/0.8 mL syringe 80 mg subcut DAILY Qty: 8 6RF pantoprazole 40 mg tablet,delayed release (DR/EC) 40 mg PO DAILY Qty: 90 1RF tocilizumab 162 mg/0.9 mL pen injector 162 mg subcut Q2W Qty: 1.8 4RF folic acid 1 mg tablet 1 mg PO QAM Qty: 90 1RF benztropine 0.5 mg Tablet 0.5 mg PO DAILY baclofen 5 mg tablet 5 mg PO TID PRN (Reason: Muscle spasms) Qty: 10 0RF gabapentin 400 mg capsule 400 mg PO TID trazodone 150 mg tablet 1 tab PO BEDTIME PRN (Reason: Sleep) risperidone 1 mg tablet 0.5 mg PO DAILY PRN (Reason: Agitation) aspirin 81 mg capsule 81 mg PO DAILY 14 Days Qty: 14 0RF diclofenac sodium 1 % gel 4 g topical QID Qty: 100 0RF Rx Instructions: apply to single knee, ankle, foot; for foot includes sole/toes/top of foot oxycodone 5 mg tablet 5 mg PO Q8H PRN (Reason: pain) Qty: 10 0RF Rx Instructions: Partial Fill upon patient request. famotidine 20 mg tablet 1 tab PO BID@1200,2100 ferrous sulfate [FeroSul] 325 mg (65 mg iron) tablet 1 tab PO QAM albuterol sulfate [ProAir HFA] 90 mcg/actuation HFA aerosol inhaler 2 puff PO Q4-6H PRN (Reason: Wheezing) duloxetine 60 mg capsule,delayed release(DR/EC) 1 cap PO BID ursodiol 500 mg tablet 500 mg PO BID Qty: 90 1RF oxycodone-acetaminophen 5-325 mg tablet 1 tab PO Q8H PRN (Reason: pain) docusate sodium 100 mg capsule 100 mg PO BEDTIME PRN (Reason: Constipation) alprazolam 2 mg tablet 2 mg PO BEDTIME PRN (Reason: Anxiety) Incruse Ellipta 62.5 mcg/actuation blister with device 1 inh inhalation DAILY 30 Days Qty: 1 6RF prednisone 10 mg tablet 10 mg PO BID Qty: 60 3RF methotrexate sodium 2.5 mg tablet 20 mg PO QWEEK Qty: 32 2RF nicotine 14 mg/24 hr patch 24 hour 1 patch topical DAILY hydrochlorothiazide 12.5 mg tablet 12.5 mg PO DAILY <Orquidea Mon NP - Last Filed: 08/20/22 11:44> Referrals: Mackenzie Estrada MD [Primary Care Provider] - 1 week <Orquidea Mon NP - Last Filed: 08/20/22 11:44> Interventions: ED Discharge Assessment Last Done: 08/20/22 11:35 <Orquidea Mon NP - Last Filed: 08/20/22 11:44> Discharge Date/Time: 08/20/22 11:36 <Orquidea Mon NP - Last Filed: 08/20/22 11:44> Print Language: Yakut <Orquidea Mon NP - Last Filed: 08/20/22 11:44>
[2022-08-20 10:57] VITALS: BP 129/80; PULSE 59; RESP 16; TEMP 36.5; O2SAT 98
[2022-08-20 11:30] VITALS: BP 131/87; PULSE 63; RESP 18; O2SAT 97
[2022-08-20] MEDS: Cyclobenzaprine HCl 10 MG TABLET PO (11:32)
[2022-08-20] MEDS: Acetaminophen 325 MG TABLET 975 MG PO (11:32)
--- NOTE | 2022-08-20 11:33 | PC.NURSE ---
PT EVALUATED IN [facility] AWARE OF PLAN OF CARE. MEDICATED ORDERED. PLAN FOR DC HOME AND PT AGREEABLE. NO ACUTE DISTRESS NOTED.
== END 2022-08-20 11:36 | disposition home or self-care (01) ==
PROVIDERS: Emergency Provider Emergency Medicine; PCP General Practice
DX: M17.0 Bilateral primary osteoarthritis of knee (principal); M79.89 Other specified soft tissue disorders; M50.30 Other cervical disc degeneration, unspecified cervical region; M51.36 Other intervertebral disc degeneration, lumbar region; Z86.718 Personal history of other venous thrombosis and embolism; Z79.899 Other long term (current) drug therapy
CPT/HCPCS: 99283; 99284

== ENCOUNTER 2022-09-06 10:00 | Outpatient (RCR) | payer MEDICAID, SELFPAY ==
[2022-08-31 11:06] VITALS: BP 125/70; PULSE 65
--- NOTE | 2022-08-31 13:45 | MHC.PT.EP ---
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 Pt HAS DECR AROM AND FLEXIB IN BILAT LEs, DECR LUMBOPELVIC/ LEs STRENGTH, DECR POSTURAL AWARENESS, AND PAIN IN HER Rt > Lt LE. FUNCTIONALLY, Pt CURRENTLY AMB W A CANE OR W/WALKER W ALTERED GAIT MECHANICS, SHE REQ ASSIST W HIGHER LEVEL ADLs, MUCH DIFFIC W STAIR MGMT, (+) UEs COMPENSATION W TRANSITIONAL MVMTS, AND DECR VALARIE TO STANDING. Pt WOULD BENEFIT FROM A TRIAL OF PT TO ADDRESS THE ABOVE FINDINGS, DEV A PROGR HEP, AND ADDRESS PAIN MGMT. Frequency and Duration: The patient will be seen 2x WK x 8 WKS Short Term Goals: * IMPROVE ADDIS PSOAS AND CALF MM FLEXIB * HIP/ KNEE/ANKLE AROM IMPROVED TO INCR EFFICIENCY OF GAIT [facility] *Pt DEMON SIT <-> STAND TRANSFERS UTILIZING LEs AND REDUCING COMPENSATION W UEs *INITIATE A HEP AND GRAD INCR Pt'S ACTIVITY LEVEL Snf Goals: *Pt INDEP W PROGR HEP AND SELF-CORRECT POSTURE/ POSITIONING *Pt'S LEs Jt SXS / PAIN DECR TO A 3-10 VS CURRENT 10 AT EVAL *Pt DEMON WFL TECHN W STAIR MGMT (ASC AND DESC 1 STEP AT A TIME ) VS GLUTE SCOOTBY *LEs STRENGTH INCR BY 1/2 TO 1 GRADE Treatment Plan: Modalities to reduce pain, spasms and effusion. Manual therapy to restore motion and function. Therapeutic exercise to improve strength and flexibility. Neuromuscular re-education for posture and balance. Therapeutic activities to return to functional activities of daily living. Electronically signed by: FELI SANTAMARIA PT Please sign and return to therapist. Thank you for your referral.
--- NOTE | 2022-11-02 10:04 | MHC.PT.DC ---
[facility] [place] Office [place] Office [place] Office [address] Kareen Crooks [address] [phone] F: [phone] F: [phone] F: [phone] F: [phone] Physical Therapy Discharge Report Diagnosis: LE RHEUMATOID ARTHRITIS Date of Surgery: Date of Evaluation: 08/31/22 Date of Discharge: 11/02/22 Treatments to Date: 2 Cancellations to Date: 1 No Shows to Date: 3 Discharge Status: Visit Non-compliance Discharge Summary: Pt IS D/C'D FROM PT AT THIS TIME PER OUR DEPT ATTENDANCE POLICY. SHE DID NOT MEET HER PT GOALS. Electronically signed by: FELI SANTAMARIA,PT Please sign and return to therapist. Thank you for your referral.
== END 2022-11-02 10:07 | disposition home or self-care (01) ==
LOC: HO.PT 10:00
PROVIDERS: PCP General Practice; Visit Provider Internal Medicine Rheumatology
DX: M05.9 Rheumatoid arthritis with rheumatoid factor, unspecified (principal)
CPT/HCPCS: 97110; 97162

== ENCOUNTER 2022-09-15 15:28 | Outpatient (REF) | payer MEDICAID, SELFPAY ==
--- NOTE | ~2022-09-15 | US_ITS ---
EXAMINATION: US VENOUS ULTRASOUND WITH DOPPLER LOWER EXTREMITY, RIGHT CLINICAL INFORMATION: Right leg pain. COMPARISON: None TECHNIQUE: Ultrasound of the deep veins is performed from the hip to the calf with compression sonography and color and pulse Doppler assessment. Spectral analysis with color-flow imaging is performed. FINDINGS: There is normal venous compression and respiratory variation and augmented flow. The visualized common femoral vein, superficial femoral vein, profunda femoral vein, popliteal vein, and the trifurcation region shows no evidence of deep venous thrombosis. No right popliteal cyst. The subcutaneous soft tissues are unremarkable. US/US venous duplex LE RT IMPRESSION: No evidence for deep venous thrombosis in the visualized veins of the right lower extremity.
== END 2022-09-15 15:29 | disposition home or self-care (01) ==
LOC: HO.US 15:28
PROVIDERS: PCP General Practice; Visit Provider Nurse Practitioner Primary Care
DX: M79.604 Pain in right leg (principal)
CPT/HCPCS: 93971

== ENCOUNTER 2022-09-16 13:22 | Emergency (ER) | payer MEDICAID, SELFPAY ==
--- NOTE | ~2022-09-16 | XR_ITS ---
EXAMINATION: XR HIP, RIGHT. XR KNEE, RIGHT. XR FOOT, RIGHT. XR ANKLE, RIGHT CLINICAL INFORMATION: Right leg pain COMPARISON: Right ankle 07/10/2021 TECHNIQUE: AP radiograph of the pelvis with AP and frog-lateral views of the right hip. 4 views of the right knee. 3 views of the right ankle. 3 views of the right foot. FINDINGS: Pelvis and right hip: Mild right hip osteoarthritis with minimal spurring along the superior acetabular rim and the lateral femoral head and neck junction. No fracture or malalignment. Mild degenerative changes noted of the pubic symphysis. Right knee: No acute fracture or malalignment. No joint effusion. No suspicious bone lesion. No joint space narrowing. Incidental note is made of a vascular stent overlying the distal thigh. Right ankle: The ankle mortise is preserved. No fracture or focal osseous lesion. No significant degenerative findings. Right foot: No acute fracture or malalignment. No erosions. XR/XR ankle RT min 3V IMPRESSION: 1. Mild right hip osteoarthritis. No acute osseous abnormalities of the right hip, knee, ankle, or foot.
--- NOTE | ~2022-09-16 | XR_ITS ---
EXAMINATION: XR HIP, RIGHT. XR KNEE, RIGHT. XR FOOT, RIGHT. XR ANKLE, RIGHT CLINICAL INFORMATION: Right leg pain COMPARISON: Right ankle 07/10/2021 TECHNIQUE: AP radiograph of the pelvis with AP and frog-lateral views of the right hip. 4 views of the right knee. 3 views of the right ankle. 3 views of the right foot. FINDINGS: Pelvis and right hip: Mild right hip osteoarthritis with minimal spurring along the superior acetabular rim and the lateral femoral head and neck junction. No fracture or malalignment. Mild degenerative changes noted of the pubic symphysis. Right knee: No acute fracture or malalignment. No joint effusion. No suspicious bone lesion. No joint space narrowing. Incidental note is made of a vascular stent overlying the distal thigh. Right ankle: The ankle mortise is preserved. No fracture or focal osseous lesion. No significant degenerative findings. Right foot: No acute fracture or malalignment. No erosions. XR/XR foot RT min 3V IMPRESSION: 1. Mild right hip osteoarthritis. No acute osseous abnormalities of the right hip, knee, ankle, or foot.
--- NOTE | ~2022-09-16 | XR_ITS ---
EXAMINATION: XR HIP, RIGHT. XR KNEE, RIGHT. XR FOOT, RIGHT. XR ANKLE, RIGHT CLINICAL INFORMATION: Right leg pain COMPARISON: Right ankle 07/10/2021 TECHNIQUE: AP radiograph of the pelvis with AP and frog-lateral views of the right hip. 4 views of the right knee. 3 views of the right ankle. 3 views of the right foot. FINDINGS: Pelvis and right hip: Mild right hip osteoarthritis with minimal spurring along the superior acetabular rim and the lateral femoral head and neck junction. No fracture or malalignment. Mild degenerative changes noted of the pubic symphysis. Right knee: No acute fracture or malalignment. No joint effusion. No suspicious bone lesion. No joint space narrowing. Incidental note is made of a vascular stent overlying the distal thigh. Right ankle: The ankle mortise is preserved. No fracture or focal osseous lesion. No significant degenerative findings. Right foot: No acute fracture or malalignment. No erosions. XR/XR knee RT 4V IMPRESSION: 1. Mild right hip osteoarthritis. No acute osseous abnormalities of the right hip, knee, ankle, or foot.
--- NOTE | ~2022-09-16 | XR_ITS ---
EXAMINATION: XR HIP, RIGHT. XR KNEE, RIGHT. XR FOOT, RIGHT. XR ANKLE, RIGHT CLINICAL INFORMATION: Right leg pain COMPARISON: Right ankle 07/10/2021 TECHNIQUE: AP radiograph of the pelvis with AP and frog-lateral views of the right hip. 4 views of the right knee. 3 views of the right ankle. 3 views of the right foot. FINDINGS: Pelvis and right hip: Mild right hip osteoarthritis with minimal spurring along the superior acetabular rim and the lateral femoral head and neck junction. No fracture or malalignment. Mild degenerative changes noted of the pubic symphysis. Right knee: No acute fracture or malalignment. No joint effusion. No suspicious bone lesion. No joint space narrowing. Incidental note is made of a vascular stent overlying the distal thigh. Right ankle: The ankle mortise is preserved. No fracture or focal osseous lesion. No significant degenerative findings. Right foot: No acute fracture or malalignment. No erosions. XR/XR hip RT w PEL1V IMPRESSION: 1. Mild right hip osteoarthritis. No acute osseous abnormalities of the right hip, knee, ankle, or foot.
[2022-09-16 13:26] VITALS: BP 150/98; PULSE 95; RESP 16; TEMP 36.6; O2SAT 97; BMI 29.0
--- NOTE | 2022-09-16 13:43 | ED.EXTPRO ---
HPI - Extremity Problem General Chief complaint: Extremity Injury, Lower <SAFIA Luciano - Last Filed: 09/16/22 13:48> Stated complaint: r leg swollen <SAFIA Luciano - Last Filed: 09/16/22 13:48> Time Seen by Provider: 09/16/22 16:13 <SAFIA Luciano - Last Filed: 09/16/22 13:48> Source: patient <SAFIA Vela - Last Filed: 09/16/22 19:04> Mode of arrival: ambulatory <SAFIA Vela - Last Filed: 09/16/22 19:04> History of Present Illness HPI Narrative: 47yoF c PMHx of lupus, Hodgkin's disease, bone/lung/heart cancer, arthritis, fibromyalgia, degenerative disc disease to cervical/lumbar spine, osteoarthritis to multiple locations of the patient's body, and 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 Denies known injury/trauma or fall. Admits saw PCP yesterday had outpatient ultrasound which was unremarkable. Reports taking Percocet for pain at home. Denies numbness, tingling, weakness, urinary incontinence/retention, fever, SOB/CP <SAFIA Vela - Last Filed: 09/16/22 19:04> MD Complaint: extremity pain <SAFIA Vela - Last Filed: 09/16/22 19:04> Onset (ago): month(s) <SAFIA Vela - Last Filed: 09/16/22 19:04> Related Data Home medications: Home Medications Medication Instructions Recorded Confirmed benztropine 0.5 mg tablet 0.5 mg PO DAILY 05/01/20 09/22/22 albuterol sulfate 90 mcg/actuation 2 puff PO Q4-6H PRN Wheezing 10/02/21 09/22/22 aerosol inhaler (ProAir HFA) duloxetine 60 mg capsule,delayed 1 cap PO BID 10/02/21 09/22/22 release famotidine 20 mg tablet 1 tab PO BID@1200,2100 10/02/21 09/22/22 ferrous sulfate 325 mg (65 mg 1 tab PO QAM 10/02/21 09/22/22 iron) tablet (FeroSul) gabapentin 400 mg capsule 400 mg PO TID 10/22/21 09/22/22 risperidone 1 mg tablet 0.5 mg PO DAILY PRN Agitation 10/22/21 09/22/22 trazodone 150 mg tablet 1 tab PO BEDTIME PRN Sleep 10/22/21 09/22/22 nicotine 14 mg/24 hr daily 1 patch topical DAILY 03/01/22 09/22/22 transdermal patch hydrochlorothiazide 12.5 mg tablet 12.5 mg PO DAILY 03/02/22 09/22/22 alprazolam 2 mg tablet 2 mg PO BEDTIME PRN Anxiety 04/19/22 09/22/22 docusate sodium 100 mg capsule 100 mg PO BEDTIME PRN Constipation 04/19/22 09/22/22 oxycodone-acetaminophen 5 mg-325 1 tab PO Q8H PRN pain 04/19/22 09/22/22 mg tablet apixaban 5 mg tablet (Eliquis) 5 mg PO BID 09/22/22 09/22/22 Previous Rx's Medication Instructions Recorded adhesive bandage 1 #20 ea 05/21/20 baclofen 5 mg tablet 5 mg PO TID PRN Muscle spasms #10 09/08/21 tabs ursodiol 500 mg tablet 500 mg PO BID #90 tabs 10/08/21 aspirin 81 mg capsule 81 mg PO DAILY 14 days #14 caps 02/18/22 umeclidinium 62.5 mcg/actuation 1 inh inhalation DAILY 30 days #1 03/02/22 blister powder for inhalation ea (Incruse Ellipsilverio) diclofenac sodium 1 % topical gel 4 g topical QID #100 grams 03/28/22 oxycodone 5 mg tablet 5 mg PO Q8H PRN pain #10 tabs 04/18/22 pantoprazole 40 mg tablet,delayed 40 mg PO DAILY #90 tabs 05/26/22 release folic acid 1 mg tablet 1 mg PO QAM #90 tabs 08/17/22 cyclobenzaprine 10 mg tablet 10 mg PO TID PRN muscle spasm #10 08/20/22 tabs doxycycline monohydrate 100 mg 100 mg PO BID #14 caps 08/20/22 capsule lidocaine 5 % topical patch 1 patch topical DAILY #15 ea 08/20/22 (Lidoderm) cyclobenzaprine 5 mg tablet 5 mg PO Q8H PRN pain (scale score 09/16/22 7-10) 5 days #14 tabs prednisone 10 mg tablet See Rx Instructions .Route 09/17/22 .COMPLEX #68 tabs methotrexate sodium 2.5 mg tablet 20 mg PO QWEEK #32 tabs 09/20/22 acetaminophen 500 mg tablet 500 - 1,000 mg PO Q8-10H PRN pain 09/22/22 #100 tabs cyclobenzaprine 5 mg tablet 5 mg PO TID PRN muscle spasm #30 09/22/22 tabs tocilizumab 162 mg/0.9 mL 162 mg (0.9 mL) subcut QWEEK #3.6 09/22/22 subcutaneous pen injector mL <SAFIA Luciano - Last Filed: 09/16/22 13:48> Allergies/Adverse reactions: Allergies Allergy/AdvReac Type Severity Reaction Status Date / Time almond [ALMONDS] Allergy Severe ANAPHYLAXIS Verified 09/22/22 11:09 adhesive tape [ADHESIVE TAPE] Allergy Intermediate RASH Verified 09/22/22 11:09 morphine [MORPHINE] Allergy Intermediate GI UPSET, Verified 09/22/22 11:09 difficulty breathing tramadol [TRAMADOL] AdvReac Unknown NAUSEA & Verified 09/22/22 11:09 VOMITING <SAFIA Luciano - Last Filed: 09/16/22 13:48> Review of Systems Review of Systems: Constitutional: No Fever, No Chills ENT/Mouth: No Nasal Congestion, No sore throat, No Rhinorrhea Cardiovascular: No Chest Pain, No SOB Respiratory: No Cough, No Sputum Gastrointestinal: No Nausea, No Vomiting, No Abdominal pain Genitourinary: No Dysuria, No Hematuria, No Urinary Incontinence/retention, No Flank Pain Musculoskeletal: + joint pain, + Myalgias, No Joint Swelling Skin: No Skin Lesions, No rash Neuro: No Weakness, No Numbness, No Paresthesias <SAFIA Vela - Last Filed: 09/16/22 19:04> Yes all other systems are reviewed and are negative <SAFIA Vela Last Filed: 09/16/22 19:04> Constitutional: Constitutional: Reports as per HPI <SAFIA Vela Last Filed: 09/16/22 19:04> [facility] Past Medical History Attestation statement: The following information was validated with the patient. <SAFIA Vela - Last Filed: 09/16/22 19:04> Medical History: Medical History Acute arthritis Bleeding hemorrhoid Bone cancer Cancer of heart Chronic GERD De Quervain's disease (tenosynovitis) Degeneration of intervertebral disc at C4-C5 level Degeneration, intervertebral disc, lumbar Depressive disorder Esophageal dysphagia Fibromyalgia Gallstones History of chemotherapy History of chemotherapy Hodgkin disease Lung cancer Nocturia Osteoarthritis of spine with radiculopathy, lumbar region Rheumatoid arthritis involving multiple sites Seropositive rheumatoid arthritis Stress incontinence in female Systemic lupus erythematosus Urgency-frequency syndrome Vitamin D deficiency <SAFIA Luciano - Last Filed: 09/16/22 13:48> Surgical History: Surgical History H/O tubal ligation History of angioplasty of vein History of biopsy History of esophagogastroduodenoscopy (EGD) History of lymph node dissection of left axilla History of repair of inguinal hernia Hx laparoscopic cholecystectomy Hx of colonoscopy Hx of endoscopy <SAFIA Luciano - Last Filed: 09/16/22 13:48> Family History Family History: Family History Maternal Grandmother Ovarian cancer <SAFIA Luciano - Last Filed: 09/16/22 13:48> Social History Social History: Social History Household Members: Spouse Housing: Apartment Are you a primary medical care administrator to a significant other at home: No Do 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 have 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 or other home services: Yes (son environmental health and safety manager) Alcohol intake: never Patient Tobacco Use Status: Never used Tobacco Tobacco use type: Cigarette Substance Use Type: Marijuana Advance Directives Date on File: 09/23/20 service: No Current occupational status: disabled 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 <SAFIA Luciano - Last Filed: 09/16/22 13:48> Physical Exam Vital Signs: Vital Signs: Last Vital Signs Temp 98 F 09/16/22 13:26 Pulse 95 09/16/22 13:26 Resp 16 09/16/22 13:26 BP 150/98 H 09/16/22 13:26 Pulse Ox 97 09/16/22 13:26 O2 Del Method 09/16/22 13:26 BMI result Body Mass Index 29.0 <SAFIA Luciano - Last Filed: 09/16/22 13:48> Vital Signs: Last Vital Signs Temp 98 F 09/16/22 13:26 Pulse 95 09/16/22 13:26 Resp 16 09/16/22 13:26 BP 150/98 H 09/16/22 13:26 Pulse Ox 97 09/16/22 13:26 O2 Del Method 09/16/22 13:26 BMI result Body Mass Index 29.0 <SAFIA Vela - Last Filed: 09/16/22 19:04> Vital Signs: Last Vital Signs Temp 98 F 09/16/22 13:26 Pulse 95 09/16/22 13:26 Resp 09/16/22 13:26 BP 150/98 H 09/16/22 13:26 Pulse Ox 97 09/16/22 13:26 O2 Del Method 09/16/22 13:26 BMI result Body Mass Index 29.0 <Serg Mueller MD - Last Filed: 09/23/22 16:29> Const: General: cooperative, healthy appearing and no acute distress <SAFIA Vela - Last Filed: 09/16/22 19:04> Orientation/consciousness: patient oriented x3 <SAFIA Vela - Last Filed: 09/16/22 19:04> Limitations: no limitations <SAFIA Vela - Last Filed: 09/16/22 19:04> HEENT: Head: Yes normal to inspection and Yes atraumatic <SAFIA Vela - Last Filed: 09/16/22 19:04> Ears: hearing grossly normal bilaterally <SAFIA Vela - Last Filed: 09/16/22 19:04> General nose exam: Normal external nose present <SAFIA Vela - Last Filed: 09/16/22 19:04> Face and sinus: Yes normal facial exam <SAFIA Vela - Last Filed: 09/16/22 19:04> Eyes: General: appearance normal, both eyes and all related structures <Padmaja Pouliot, PA - Last Filed: 09/16/22 19:04> EOM: EOMs intact bilaterally <Padmaja Pouliot, PA - Last Filed: 09/16/22 19:04> Neck: Neck: Yes normal visual inspection and Yes no meningeal signs <Padmaja Pouliot, PA - Last Filed: 09/16/22 19:04> Resp: Effort & Inspection: normal respiratory effort and no respiratory distress <Padmaja Pouliot, PA - Last Filed: 09/16/22 19:04> Cardio: Rate: regular rate <Padmaja Pouliot, PA - Last Filed: 09/16/22 19:04> Heart sounds: S1 normal heart sound present and S2 normal heart sound present <Padmaja Poulcarolinat, PA - Last Filed: 09/16/22 19:04> GI: Inspection: Yes normal to inspection <Padmaja Poulcarolinat, PA - Last Filed: 09/16/22 19:04> Palpation (GI): Soft to palpation, nontender, no guarding and not rigid <Padmaja Poulcarolinat, PA - Last Filed: 09/16/22 19:04> : General: Yes no CVA tenderness <Padmaja Pouliot, PA - Last Filed: 09/16/22 19:04> Back/Spine/Pelvis: Other: No midline thoracic/lumbar spinous tenderness/step-off or deformity. Mild bilateral lower lumbar MSK tenderness to palpation <Padmaja Poulcarolinat, PA - Last Filed: 09/16/22 19:04> Back: no CVA tenderness <Padmaja Pouliot, PA - Last Filed: 09/16/22 19:04> Skin: Rashes: no rashes <Padmaja Pouliot, PA - Last Filed: 09/16/22 19:04> Wounds: no wounds <Padmaja Pouliot, PA - Last Filed: 09/16/22 19:04> Neuro: Other: Strength intact throughout. No saddle anesthesia. Sensation intact to light touch. Neurovascular intact distally <Padmaja Poulcarolinat, PA - Last Filed: 09/16/22 19:04> General: patient oriented x3, gait normal, tone normal and no meningeal signs <Padmaja Pouliot, PA - Last Filed: 09/16/22 19:04> Gait exam (Neuro): Normal gait present <SAFIA Vela Last Filed: 09/16/22 19:04> Extrem: Other: No lower extremity deformity appreciated. No erythema or warmth. Diffusely tender right knee, tib-fib, ankle, and foot. Decreased ROM secondary to pain. No appreciable pitting edema. Right calf mildly tender. NV intact. No crepitus <SAFIA Vela Last Filed: 09/16/22 19:04> General: Yes normal to inspection <SAFIA Vela - Last Filed: 09/16/22 19:04> Course Course Course Narrative: RME-13:45PM ?47yoF c PMHx of lupus, Hodgkin's disease, bone/lung/heart cancer, arthritis, fibromyalgia, degenerative disc disease to cervical/lumbar spine, osteoarthritis to multiple locations of the patient's body, and history of DVTs currently on Lovenox?who is presenting to the ER with complaints of worsening right lower extremity pain for the past few months that is progressively worsening. Reports that she was seen by her primary care provider yesterday and had an outpatient ultrasound although is unsure about the results. Reports that she does not feel like she needs a repeat ultrasound does not believe these are her DVTs are making her have this pain. She denies any recent falls, chest pain or shortness of breath, rashes or any other symptoms complaints or concerns at this time. Plan: Patient has an outpatient ultrasound I spoke to best from ultrasound and she will have a stat read will also order of right hip/knee/ankle and foot x-ray. Patient will be sent back to the waiting room to be evaluated in EM. <SAFIA Luciano - Last Filed: 09/16/22 13:48> RME-13:45PM ?47yoF c PMHx of lupus, Hodgkin's disease, bone/lung/heart cancer, arthritis, fibromyalgia, degenerative disc disease to cervical/lumbar spine, osteoarthritis to multiple locations of the patient's body, and history of DVTs currently on Lovenox?who is presenting to the ER with complaints of worsening right lower extremity pain for the past few months that is progressively worsening. Reports that she was seen by her primary care provider yesterday and had an outpatient ultrasound although is unsure about the results. Reports that she does not feel like she needs a repeat ultrasound does not believe these are her DVTs are making her have this pain. She denies any recent falls, chest pain or shortness of breath, rashes or any other symptoms complaints or concerns at this time. Plan: Patient has an outpatient ultrasound I spoke to best from ultrasound and she will have a stat read will also order of right hip/knee/ankle and foot x-ray. Patient will be sent back to the waiting room to be evaluated in [facility]. XR knee RT 4V/XR hip RT w PEL1V/XR foot RT min 3V/XR ankle RT min 3V IMPRESSION: 1.? Mild right hip osteoarthritis. No acute osseous abnormalities of the right hip, knee, ankle, or foot. Results discussed with patient including worrisome signs and symptoms and strict return precautions, and when to return to the emergency department. They verbalized understanding and feel safe for discharge at this time. <SAFIA Vela - Last Filed: 09/16/22 19:04> Medications Administered Discontinued Medications Generic Name Dose Route Start Last Admin Trade Name Freq PRN Reason Stop Dose Admin Cyclobenzaprine HCl 10 mg 09/16/22 16:33 09/16/22 16:38 Cyclobenzaprine Hcl 10 Mg Tablet PO 09/16/22 16:34 10 mg ONCE ONE Administration <SAFIA Luciano - Last Filed: 09/16/22 13:48> Medications Administered Discontinued Medications Generic Name Dose Route Start Last Admin Trade Name Freq PRN Reason Stop Dose Admin Cyclobenzaprine HCl 10 mg 09/16/22 16:33 09/16/22 16:38 Cyclobenzaprine Hcl 10 Mg Tablet PO 09/16/22 16:34 10 mg ONCE ONE Administration <SAFIA Vela - Last Filed: 09/16/22 19:04> Medications Administered Discontinued Medications Generic Name Dose Route Start Last Admin Trade Name Freq PRN Reason Stop Dose Admin Cyclobenzaprine HCl 10 mg 09/16/22 16:33 09/16/22 16:38 Cyclobenzaprine Hcl 10 Mg Tablet PO 09/16/22 16:34 10 mg ONCE ONE Administration <Serg Mueller MD - Last Filed: 09/23/22 16:29> Medical Decision Making Medical Decision Making MDM Narrative: 47yoF c PMHx of lupus, Hodgkin's disease, bone/lung/heart cancer, arthritis, fibromyalgia, degenerative disc disease to cervical/lumbar spine, osteoarthritis to multiple locations of the patient's body, and 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 On exam vital signs stable, NAD, nontoxic appearing, physical exam as noted above with diffuse myalgias. No midline spinous tenderness or red flag symptoms. Concern for osteoarthritic flare vs RA flare vs MSK pain/strain. Low suspicion for DVT or PE as patient is anticoagulated and negative duplex ultrasound yesterday. Lower suspicion for fracture, septic joint/arthritis or cellulitis Plan: X-rays ordered in triage, PO Flexeril Please refer to course for remaining clinical decision making, interpretation of labs/imaging results, and discussions with consultants and/or family members. <SAFIA Vela - Last Filed: 09/16/22 19:04> Differential Diagnosis Differential Diagnoses: The differential diagnosis associated with the presentation includes <SAFIA Vela - Last Filed: 09/16/22 19:04> As above <SAFIA Vela - Last Filed: 09/16/22 19:04> Radiology Impression Discussion of test interpretation with radiology: I have reviewed the radiologist's reading. <SAFIA Vela - Last Filed: 09/16/22 19:04> External Record Review External record reviewed: Office record, Outpatient record, Prior outpatient labs and Outside ED record <SAFIA Vela - Last Filed: 09/16/22 19:04> Prior ED record <SAFIA Vela - Last Filed: 09/16/22 19:04> Prescription Management I considered prescription management with: Pain Medication <SAFIA Vela - Last Filed: 09/16/22 19:04> Attestation Attending Attestation: I reviewed PRESS OFFBEARER/PA/Resident note, assessment and plan. I agree with the documentation, assessment and plan unless otherwise stated. <Serg Mueller MD - Last Filed: 09/23/22 16:29> Discharge Plan Discharge Clinical Impression: Osteoarthritis, Polyarthralgia <SAFIA Luciano - Last Filed: 09/16/22 13:48> Patient Disposition: Home, Self-Care <SAFIA Luciano - Last Filed: 09/16/22 13:48> Instructions: Osteoarthritis (ED), Arthralgia (ED) <SAFIA Luciano - Last Filed: 09/16/22 13:48> Additional Instructions: Your x-rays do not show any acute fracture/breaks or dislocations. This is likely your osteoarthritis Continue home prescribed medications. In addition Flexeril as a muscle relaxer, take at night as it makes you drowsy. Please have close follow-up with her doctor Is symptoms persist or worsen return to the ED Eileen radiograf?as no muestran fracturas/roturas o dislocaciones agudas. Esta es probablemente kessler osteoartritis Contin?e con los medicamentos recetados en casa. Adem?s Flexeril nancy relajante muscular, t?lopez por la noche ya que te produce somnolencia. Por favor, tenga un seguimiento cercano con kessler m?dico. Si los s?ntomas persisten o empeoran, regrese al servicio de urgencias. <SAFIA Luciano - Last Filed: 09/16/22 13:48> Prescriptions: New cyclobenzaprine 5 mg tablet 5 mg PO Q8H PRN (Reason: pain (scale score 7-10)) 5 Days Qty: 14 0RF No Action (DME) adhesive bandage 1 bandage See Rx Instructions .ROUTE .MEDSUPPLY Qty: 20 5RF Rx Instructions: Use after Methotrexate injection pantoprazole 40 mg tablet,delayed release (DR/EC) 40 mg PO DAILY Qty: 90 1RF folic acid 1 mg tablet 1 mg PO QAM Qty: 90 1RF prednisone 10 mg tablet See Rx Instructions .ROUTE .COMPLEX Qty: 68 3RF Rx Instructions: two tab by mouth twice a day for 4 days, then one tab twice a day methotrexate sodium 2.5 mg tablet 20 mg PO QWEEK Qty: 32 2RF benztropine 0.5 mg Tablet 0.5 mg PO DAILY baclofen 5 mg tablet 5 mg PO TID PRN (Reason: Muscle spasms) Qty: 10 0RF gabapentin 400 mg capsule 400 mg PO TID trazodone 150 mg tablet 1 tab PO BEDTIME PRN (Reason: Sleep) risperidone 1 mg tablet 0.5 mg PO DAILY PRN (Reason: Agitation) aspirin 81 mg capsule 81 mg PO DAILY 14 Days Qty: 14 0RF diclofenac sodium 1 % gel 4 g topical QID Qty: 100 0RF Rx Instructions: apply to single knee, ankle, foot; for foot includes sole/toes/top of foot oxycodone 5 mg tablet 5 mg PO Q8H PRN (Reason: pain) Qty: 10 0RF Rx Instructions: Partial Fill upon patient request. famotidine 20 mg tablet 1 tab PO BID@1200,2100 ferrous sulfate [FeroSul] 325 mg (65 mg iron) tablet 1 tab PO QAM albuterol sulfate [ProAir HFA] 90 mcg/actuation HFA aerosol inhaler 2 puff PO Q4-6H PRN (Reason: Wheezing) duloxetine 60 mg capsule,delayed release(DR/EC) 1 cap PO BID ursodiol 500 mg tablet 500 mg PO BID Qty: 90 1RF cyclobenzaprine 10 mg tablet 10 mg PO TID PRN (Reason: muscle spasm) Qty: 10 0RF doxycycline monohydrate 100 mg capsule 100 mg PO BID Qty: 14 0RF lidocaine [Lidoderm] 5 % adhesive patch,medicated 1 patch topical DAILY Qty: 15 0RF Rx Instructions: leave on most painful area for up to 12 hrs oxycodone-acetaminophen 5-325 mg tablet 1 tab PO Q8H PRN (Reason: pain) docusate sodium 100 mg capsule 100 mg PO BEDTIME PRN (Reason: Constipation) alprazolam 2 mg tablet 2 mg PO BEDTIME PRN (Reason: Anxiety) Incruse Ellipta 62.5 mcg/actuation blister with device 1 inh inhalation DAILY 30 Days Qty: 1 6RF nicotine 14 mg/24 hr patch 24 hour 1 patch topical DAILY hydrochlorothiazide 12.5 mg tablet 12.5 mg PO DAILY Eliquis 5 mg tablet 5 mg PO BID acetaminophen 500 mg tablet 500 - 1,000 mg PO Q8-10H PRN (Reason: pain) Qty: 100 4RF tocilizumab 162 mg/0.9 mL pen injector 162 mg subcut QWEEK Qty: 3.6 4RF Rx Instructions: note increase to once a week cyclobenzaprine 5 mg tablet 5 mg PO TID PRN (Reason: muscle spasm) Qty: 30 0RF <SAFIA Luciano - Last Filed: 09/16/22 13:48> Referrals: [facility] [Primary Care Provider] - <SAFIA Luciano - Last Filed: 09/16/22 13:48> Interventions: ED Discharge Assessment Last Done: 09/16/22 17:23 <SAFIA Luciano - Last Filed: 09/16/22 13:48> Discharge Date/Time: 09/16/22 17:25 <SAFIA Luciano - Last Filed: 09/16/22 13:48> Print Language: Ghanaian <SAFIA Luciano - Last Filed: 09/16/22 13:48>
[2022-09-16] MEDS: Cyclobenzaprine HCl 10 MG TABLET PO (16:38)
== END 2022-09-16 17:25 | disposition home or self-care (01) ==
PROVIDERS: Emergency Provider Emergency Medicine
DX: R60.0 Localized edema (principal); M79.7 Fibromyalgia; M79.604 Pain in right leg; M25.551 Pain in right hip; Z79.899 Other long term (current) drug therapy; Z86.718 Personal history of other venous thrombosis and embolism; Z79.01 Long term (current) use of anticoagulants
CPT/HCPCS: 73502; 73564; 73610; 73630; 99283

== ENCOUNTER → 2022-09-21 09:21 | Outpatient (BNVA) | payer MEDICAID, SELFPAY | PROVIDERS: Visit Provider Orthopaedic Surgery | DX: M05.9 Rheumatoid arthritis with rheumatoid factor, unspecified (principal); M25.642 Stiffness of left hand, not elsewhere classified; G56.01 Carpal tunnel syndrome, right upper limb | CPT/HCPCS: 99212 ==

== ENCOUNTER 2022-09-22 08:09 | Outpatient (REF) | payer MEDICAID, SELFPAY ==
--- NOTE | ~2022-09-22 | US_ITS ---
EXAMINATION: ANKLE-BRACHIAL INDICES SINGLE LEVEL PULSE VOLUME RECORDING ARTERIAL DUPLEX BILATERAL LEGS CLINICAL INFORMATION: Peripheral vascular disease. COMPARISON: 02/17/2022. TECHNIQUE: Ankle-brachial indices and PVR at the ankle were obtained. Duplex Doppler of the bilateral lower extremity arterial systems was performed. FINDINGS: RIGHT: Ankle-brachial index: 0.99 PVR: Mildly abnormal Common femoral: PSV 174 cm/s. Triphasic waveform. Deep femoral: PSV 217 cm/s. Monophasic waveform. Proximal superficial femoral: PSV 143 cm/s. Monophasic waveform. [place] artery proximal to stent: PSV 104 cm/s. Monophasic waveform. Proximal stent: PSV 141 cm/s. Monophasic waveform. Mid stent: PSV 135 cm/s. Monophasic waveform. Distal stent: PSV 259 cm/s. Monophasic waveform. [place] artery distal to stent: PSV 227 cm/s. Monophasic waveform. Popliteal: PSV 72 cm/s. Monophasic waveform. Posterior tibial: PSV 101 cm/s. Monophasic waveform. Peroneal: PSV 28 cm/s. Monophasic waveform. LEFT: Ankle-brachial index: 0.83 PVR: Mildly abnormal Common femoral: PSV 120 cm/s. Monophasic waveform. Deep femoral: PSV 51 cm/s. Monophasic waveform. Proximal superficial femoral: PSV 84 cm/s. Monophasic waveform. Mid superficial femoral: PSV 80 cm/s. Monophasic waveform. Distal superficial femoral: PSV 71 cm/s. Monophasic waveform. Popliteal: PSV 36 cm/s. Monophasic waveform. Posterior tibial: PSV 75 cm/s. Monophasic waveform. Peroneal: PSV 37 cm/s. Monophasic waveform. US/US arterial duplex LE BI IMPRESSION: Right lower extremity: Normal MAI. Mildly abnormal PVR. Monophasic waveforms proximal superficial femoral artery and below. The SFA stent is patent with no visible focal stenosis. Left lower extremity: Mild peripheral arterial disease by AMI. Mildly abnormal PVR. Monophasic waveforms common femoral artery and below.
--- NOTE | ~2022-09-22 | US_ITS ---
EXAMINATION: ANKLE-BRACHIAL INDICES SINGLE LEVEL PULSE VOLUME RECORDING ARTERIAL DUPLEX BILATERAL LEGS CLINICAL INFORMATION: Peripheral vascular disease. COMPARISON: 02/17/2022. TECHNIQUE: Ankle-brachial indices and PVR at the ankle were obtained. Duplex Doppler of the bilateral lower extremity arterial systems was performed. FINDINGS: RIGHT: Ankle-brachial index: 0.99 PVR: Mildly abnormal Common femoral: PSV 174 cm/s. Triphasic waveform. Deep femoral: PSV 217 cm/s. Monophasic waveform. Proximal superficial femoral: PSV 143 cm/s. Monophasic waveform. [place] artery proximal to stent: PSV 104 cm/s. Monophasic waveform. Proximal stent: PSV 141 cm/s. Monophasic waveform. Mid stent: PSV 135 cm/s. Monophasic waveform. Distal stent: PSV 259 cm/s. Monophasic waveform. [place] artery distal to stent: PSV 227 cm/s. Monophasic waveform. Popliteal: PSV 72 cm/s. Monophasic waveform. Posterior tibial: PSV 101 cm/s. Monophasic waveform. Peroneal: PSV 28 cm/s. Monophasic waveform. LEFT: Ankle-brachial index: 0.83 PVR: Mildly abnormal Common femoral: PSV 120 cm/s. Monophasic waveform. Deep femoral: PSV 51 cm/s. Monophasic waveform. Proximal superficial femoral: PSV 84 cm/s. Monophasic waveform. Mid superficial femoral: PSV 80 cm/s. Monophasic waveform. Distal superficial femoral: PSV 71 cm/s. Monophasic waveform. Popliteal: PSV 36 cm/s. Monophasic waveform. Posterior tibial: PSV 75 cm/s. Monophasic waveform. Peroneal: PSV 37 cm/s. Monophasic waveform. US/US MAI complete IMPRESSION: Right lower extremity: Normal MAI. Mildly abnormal PVR. Monophasic waveforms proximal superficial femoral artery and below. The SFA stent is patent with no visible focal stenosis. Left lower extremity: Mild peripheral arterial disease by MAI. Mildly abnormal PVR. Monophasic waveforms common femoral artery and below.
== END 2022-09-22 08:10 | disposition home or self-care (01) ==
LOC: HO.US 08:09
PROVIDERS: Visit Provider Surgery Vascular Surgery
DX: S16.1XXA Strain of muscle, fascia and tendon at neck level, initial encounter (principal); M05.9 Rheumatoid arthritis with rheumatoid factor, unspecified; I73.9 Peripheral vascular disease, unspecified; Z79.899 Other long term (current) drug therapy
CPT/HCPCS: 20610; 93923; 93925; 99212

== ENCOUNTER → 2022-10-07 10:36 | Outpatient (BNVA) | payer MEDICAID, SELFPAY | PROVIDERS: PCP General Practice; Visit Provider Surgery Vascular Surgery | DX: I73.9 Peripheral vascular disease, unspecified (principal) | CPT/HCPCS: 99212 ==

== ENCOUNTER 2022-11-04 11:26 | Outpatient (REF) | payer MEDICAID, SELFPAY ==
[2022-11-04 13:27] LABS: MANUAL DIFF FLAG NO
[2022-11-04 13:32] LABS: Basophils Percent Auto 0.2 % (0-2); Eosinophils Percent Auto 0.9 % (0-4); Hematocrit 39.2 % (37.0-47.0); Imm Gran Abs Auto 0.01 X10*3/uL (0.00-0.03); Imm Gran Pct Auto 0.2 % (0.0-0.4); Lymphocytes Absolute Auto 1.9 X10*3/uL (1.2-4.9); Lymphocytes Percent Auto 42.5 % (20-40); Mean Corpuscular HGB Conc 33.2 g/dl (31.0-35.0); Mean Corpuscular Hemoglobin 31.6 pg (27.0-33.0); Mean Corpuscular Volume 95.1 fL (80.0-98.0); Mean Platelet Volume 10.4 fL (9.4-12.3); Monocytes Absolute Auto 0.4 X10*3/uL (0.1-1.2); Monocytes Percent Auto 8.1 % (2-11); Neutrophils Absolute Auto 2.2 x10*3/uL (2.0-8.3); Neutrophils Percent Auto 48.1 % (45-73); Platelet Count 210 X10*3/uL (160-400); Red Blood Count 4.12 X10*6/uL (4.20-5.50); Red Cell Distribution Width 15.2 % (11.0-16.0); White Blood Count 4.6 X10*3/uL (4.8-10.8)
[2022-11-04 13:51] LABS: Alanine Aminotransferase 13 U/L (0-31); Aspartate Amino Transferase 14 U/L (5-31); C Reactive Protein 0.12 mg/dL (< or = 0.50)
[2022-11-04 14:14] LABS: Erythrocyte Sedimentation Rate 19 MM/HR (0-20)
== END 2022-11-04 11:27 | disposition home or self-care (01) ==
LOC: HO.10HDL 11:26
PROVIDERS: Visit Provider Internal Medicine Rheumatology
DX: M05.9 Rheumatoid arthritis with rheumatoid factor, unspecified (principal); C81.90 Hodgkin lymphoma, unspecified, unspecified site; Z79.899 Other long term (current) drug therapy
CPT/HCPCS: 36415; 84450; 84460; 85025; 85652; 86140

== ENCOUNTER → 2022-11-08 07:46 | Outpatient (BNVA) | payer MEDICAID, SELFPAY | PROVIDERS: PCP General Practice; Visit Provider Internal Medicine Rheumatology | DX: M79.7 Fibromyalgia (principal); M47.26 Other spondylosis with radiculopathy, lumbar region; M05.9 Rheumatoid arthritis with rheumatoid factor, unspecified; Z79.899 Other long term (current) drug therapy | CPT/HCPCS: 99212 ==

== ENCOUNTER 2022-11-10 14:40 | Emergency (ER) | payer MEDICAID, SELFPAY ==
--- NOTE | ~2022-11-10 | XR_ITS ---
EXAMINATION: XR CHEST CLINICAL INFORMATION: Chest pain COMPARISON: June 19, 2022 TECHNIQUE: 2 views of the chest were obtained. FINDINGS: No significant abnormality is noted involving the heart, lungs, mediastinum, bony thorax or soft tissues. Patient is status post right axillary surgery with clips in place. XR/XR chest 2V IMPRESSION: No acute disease.
[2022-11-10 16:03] VITALS: BP 144/88; PULSE 76; RESP 18; TEMP 36.3; O2SAT 99; BMI 29.2
--- NOTE | 2022-11-10 16:03 | ED_ITS ---
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 Patient denies any injury or trauma to her left wrist. She tells me that she had prior surgery to wrist and has chronic pain in the wrist. She reports of burning rash under her breasts and is concerned that she may have shingles again she had a shingles rash underneath her breasts and it feels similar. Patient also reports an isolated fever of 100.5 last night. No chills, vomiting, abdominal pain, chest pain, shortness of breath. The pain in her left wrist does radiate up to her armpit. Patient reports she normally takes Percocet at home for pain but ran out and cannot get her refill until November 19. She tells me that she has had Flexeril before and this has helped with her pain. Related Data Home Medications Medication Instructions Recorded Confirmed benztropine 0.5 mg tablet 0.5 mg PO DAILY 05/01/20 09/22/22 albuterol sulfate 90 mcg/actuation 2 puff PO Q4-6H PRN Wheezing 10/02/21 09/22/22 aerosol inhaler (ProAir HFA) duloxetine 60 mg capsule,delayed 1 cap PO BID 10/02/21 09/22/22 release famotidine 20 mg tablet 1 tab PO BID@1200,2100 10/02/21 09/22/22 ferrous sulfate 325 mg (65 mg 1 tab PO QAM 10/02/21 09/22/22 iron) tablet (FeroSul) gabapentin 400 mg capsule 400 mg PO TID 10/22/21 09/22/22 risperidone 1 mg tablet 0.5 mg PO DAILY PRN Agitation 10/22/21 09/22/22 trazodone 150 mg tablet 1 tab PO BEDTIME PRN Sleep 10/22/21 09/22/22 nicotine 14 mg/24 hr daily 1 patch topical DAILY 03/01/22 09/22/22 transdermal patch hydrochlorothiazide 12.5 mg tablet 12.5 mg PO DAILY 03/02/22 09/22/22 alprazolam 2 mg tablet 2 mg PO BEDTIME PRN Anxiety 04/19/22 09/22/22 docusate sodium 100 mg capsule 100 mg PO BEDTIME PRN Constipation 04/19/22 09/22/22 oxycodone-acetaminophen 5 mg-325 1 tab PO Q8H PRN pain 04/19/22 09/22/22 mg tablet apixaban 5 mg tablet (Eliquis) 5 mg PO BID 09/22/22 09/22/22 Previous Rx's Medication Instructions Recorded adhesive bandage 1 #20 ea 05/21/20 baclofen 5 mg tablet 5 mg PO TID PRN Muscle spasms #10 09/08/21 tabs ursodiol 500 mg tablet 500 mg PO BID #90 tabs 10/08/21 aspirin 81 mg capsule 81 mg PO DAILY 14 days #14 caps 02/18/22 umeclidinium 62.5 mcg/actuation 1 inh inhalation DAILY 30 days #1 03/02/22 blister powder for inhalation ea (Ibeth Jang) diclofenac sodium 1 % topical gel 4 g topical QID #100 grams 03/28/22 oxycodone 5 mg tablet 5 mg PO Q8H PRN pain #10 tabs 04/18/22 folic acid 1 mg tablet 1 mg PO QAM #90 tabs 08/17/22 cyclobenzaprine 10 mg tablet 10 mg PO TID PRN muscle spasm #10 08/20/22 tabs lidocaine 5 % topical patch 1 patch topical DAILY #15 ea 08/20/22 (Lidoderm) methotrexate sodium 2.5 mg tablet 20 mg PO QWEEK #32 tabs 09/20/22 acetaminophen 500 mg tablet 500 - 1,000 mg PO Q8-10H PRN pain 09/22/22 #100 tabs cyclobenzaprine 5 mg tablet 5 mg PO TID PRN muscle spasm #30 09/22/22 tabs tocilizumab 162 mg/0.9 mL 162 mg (0.9 mL) subcut QWEEK #3.6 09/22/22 subcutaneous pen injector mL pantoprazole 40 mg tablet,delayed 40 mg PO DAILY #90 tabs 10/29/22 release prednisone 10 mg tablet 10 mg .Route DAILY #30 tabs 11/08/22 cyclobenzaprine 5 mg tablet 5 mg PO TID PRN muscle spasm #10 11/10/22 tabs nystatin 100,000 unit/gram topical 1 appl topical BID #30 grams 11/10/22 powder Allergies Allergy/AdvReac Type Severity Reaction Status Date / Time almond [ALMONDS] Allergy Severe ANAPHYLAXIS Verified 11/10/22 15:41 adhesive tape [ADHESIVE TAPE] Allergy Intermediate RASH Verified 11/10/22 15:41 morphine [MORPHINE] Allergy Intermediate GI UPSET, Verified 11/10/22 15:41 difficulty breathing tramadol [TRAMADOL] AdvReac Unknown NAUSEA & Verified 11/10/22 15:41 VOMITING Review of Systems Review of Systems: Yes all other systems are reviewed and are negative Constitutional: Constitutional: Reports no additional constitutional complaints, Denies body ache(s), Denies chills, Reports fever(s), Denies headache(s) and Denies weakness Eyes: Eyes: Reports no additional eye complaints and Denies change in vision ENT: Reports system reviewed and no additional complaints, except as d ocumented, Denies dizziness, Denies headache(s), Denies nasal congestion, Denies nasal discharge and Denies neck pain Cardiovascular: Cardiovascular: Reports no additional cardiovascular complaints, Denies chest pain, Denies leg edema and Denies dyspnea Respiratory: Respiratory: Reports no additional respiratory complaints, Denies cough and Denies dyspnea Gastrointestinal: Gastrointestinal: Reports no additional gastrointestinal complaints, Denies abdominal pain, Denies diarrhea, Denies nausea and Denies vomiting Genitourinary: Genitourinary: Reports no additional female genitourinary complaints and Denies urinary incontinence Musculoskeletal: Musculoskeletal: Reports no additional musculoskeletal complaints, Denies back pain, Reports arthralgias, Denies joint swelling, Denies neck pain, Denies numbness, Reports radiating pain into limb and Denies tingling Integumentary/Breasts: Skin/Breast: Reports system reviewed and no additional complaints, except as docu and Reports rash Neurologic: Reports system reviewed and no additional complaints, except as documented, Denies Abnormal speech present, Denies dizziness, Denies headache(s ), Denies numbness, Denies tingling and Denies weakness PMFSH Past Medical History Attestation statement: The following information was validated with the patient. Source: old records reviewed and nursing notes reviewed Medical History Acute arthritis Bleeding hemorrhoid Bone cancer Cancer of heart Chronic GERD De Quervain's disease (tenosynovitis) Degeneration of intervertebral disc at C4-C5 level Degeneration, intervertebral disc, lumbar Depressive disorder Esophageal dysphagia Fibromyalgia Gallstones History of chemotherapy History of chemotherapy Hodgkin disease Lung cancer Nocturia Osteoarthritis of spine with radiculopathy, lumbar region Rheumatoid arthritis involving multiple sites Seropositive rheumatoid arthritis Stress incontinence in female Systemic lupus erythematosus Urgency-frequency syndrome Vitamin D deficiency Surgical History H/O tubal ligation History of angioplasty of vein History of biopsy History of esophagogastroduodenoscopy (EGD) History of lymph node dissection of left axilla History of repair of inguinal hernia Hx laparoscopic cholecystectomy Hx of colonoscopy Hx of endoscopy Family History Family History Maternal Grandmother Ovarian cancer Social History Social History Household Members: Spouse Housing: Apartment Are you a primary child care center administrator to a significant other at home: No Do 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 have 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 or other home services: Yes (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) Alcohol intake: never Patient Tobacco Use Status: Never used Tobacco Tobacco use type: Cigarette Substance Use Type: Marijuana Advance Directives: No Advance Directives Information Provided: No Advance Directives Date on File: 09/23/20 service: No Current occupational status: disabled 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 Physical Exam Vital Signs: Vital Signs: Last Vital Signs Temp 97.3 F 11/10/22 16:03 Pulse 76 11/10/22 16:03 Resp 18 11/10/22 16:03 BP 144/88 H 11/10/22 16:03 Pulse Ox 99 11/10/22 16:03 O2 Del Method Room Air 11/10/22 16:03 BMI result Body Mass Index 29.2 Const: General: cooperative, healthy appearing, comfortable and no acute distress Orientation/consciousness: patient oriented x3 Limitations: no limitations HEENT: Head: Yes normal to inspection Ears: hearing grossly normal bilaterally General nose exam: Normal external nose present Face and sinus: Yes normal facial exam Mouth: Normal oral and palatal mucosa present Throat: Yes posterior oropharynx normal Eyes: General: appearance normal, both eyes and all related structures Pupils: Equal, round and reactive pupils present Neck: Neck: Yes normal visual inspection Chest: Chest palpation & inspection: normal inspection of the chest Resp: Effort & Inspection: normal respiratory effort Auscultation: clear to auscultation bilaterally Cardio: Rate: regular rate Rhythm: regular rhythm Peripheral pulses: Peripheral pulses 2+ throughout GI: Inspection: Yes normal to inspection Palpation (GI): Soft to palpation and nontender Auscultation: normal bowel sounds Back/Spine/Pelvis: Thoracic/Lumbar Spine: thoracic and lumbar spine normal to inspection Skin: Other: Underneath both breasts to there is a Yenni like rash noted. General skin exam: no rashes or lesions noted Neuro: General: patient oriented x3, no focal motor deficits and normal sensation to monofilament Cranial nerves: Yes Equal, round and reactive pupils present Cognition (Neuro): normal cognition Speech: No Abnormal speech present Gait exam (Neuro): Normal gait present Motor exam (neuro): 5/5 motor strength present throughout Extrem: Other: There is some mild tenderness over the left dorsal wrist but there is no appre ciable swelling, erythema, warmth. Both passive and active range of motion are intact. Palpable radial and ulnar pulses. Sensation is intact distally. General: Yes normal to inspection, Yes no pedal edema and Yes no calf tenderness Course Course Course Narrative: This a rapid medical exam. Deferred additional HPI, PE, ROS to primary provider. 47yoF c PMHx of lupus, Hodgkin's disease, bone/lung/heart cancer, arthritis, fibromyalgia, degenerative disc disease to cervical/lumbar spine, osteoarthritis to multiple locations of the patient's body, and history of DVTs currently on Lovenox here with left wrist pain radiating to her left chest wall/axilla, burning rash under both breasts and fever max temp 100.5 last night. Will obtain labs, EKG, CXR, covid screen VSS Medical Decision Making Medical Decision Making MDM Narrative: This is a 47-year-old female with a complex medical history who takes chronic opiates for pain who presents to the ER with complaints of left wrist pain with radiation up the arm into the axilla area since yesterday with no known injury or trauma. Patient reports history of chronic wrist pain from a previous surgery. Has been taking Percocet but ran out of her Percocet and cannot get a refill until November 19. There is no new injury or trauma. No appreciable swelling, redness, warmth or limited range of motion to the suggest fracture, cellulitis, septic joint. Patient does have history DVTs and has been compliant with her Lovenox with no missed doses so I doubt a DVT. Patient reports having Flexeril in the past with improvement of symptoms so I will prescribe her with a low-dose prescription for left Flexeril and recommend she do supportive care at home and follow-up with primary care doctor for her wrist pain. Her labs, EKG and chest x-ray which were ordered from triage are all unremarkable. Doubt ACS Patient also complaining of burning skin rash underneath her breast. On exam patient has Yenni. I will start her on nystatin powder. Differential Diagnosis Differential Diagnoses: The differential diagnosis associated with the presentation includes See discussion above Lab Data MDM Lab Attestation statement: I reviewed the patient's lab results. 11/10/22 16:51 11/10/22 16:51 Labs: Lab Results 11/10/22 11/10/22 11/10/22 Range/Units 16:51 16:51 16:51 WBC 5.5 (4.8-10.8) X10*3/uL RBC 3.95 L (4.20-5.50) X10*6/uL Hgb 12.5 (12.0-16.0) g/dl Hct 37.9 (37.0-47.0) % MCV 95.9 (80.0-98.0) fL MCH 31.6 (27.0-33.0) pg MCHC 33.0 (31.0-35.0) g/dl RDW 14.8 (11.0-16.0) % Plt Count 222 (160-400) X10*3/uL MPV 10.0 (9.4-12.3) fL Immature Gran % (Auto) 0.2 (0.0-0.4) % Neut % (Auto) 55.5 (45-73) % Lymph % (Auto) 37.4 (20-40) % [place] % (Auto) 6.0 (2-11) % Eos % (Auto) 0.7 (0-4) % Baso % (Auto) 0.2 (0-2) % Lymph # (Auto) 2.0 (1.2-4.9) X10*3/uL [place] # (Auto) 0.3 (0.1-1.2) X10*3/uL Eos # (Auto) 0.0 (0.0-0.4) X10*3/uL Baso # (Auto) 0.0 (0.0-0.2) X10*3/uL Abs Immat Gran (auto) 0.01 (0.00-0.03) X10*3/uL Absolute Neuts (auto) 3.0 (2.0-8.3) x10*3/uL Absolute Nucleated RBC 0.000 (0.0-0.012) X10*3/uL Nucleated RBC % (auto) 0.0 (0.0-0.2) /100WBC Sodium 139 (135-145) mmol/L Potassium 4.0 (3.3-5.1) mmol/L Chloride 105 (96-108) mmol/L Carbon Dioxide 25 (22-29) mmol/L Anion Gap 13 (12-20) BUN 8 L (9-16) mg/dL Creatinine 0.75 (0.5-1.4) mg/dL Estim Creat Clear Calc 101.2 Estimated GFR > 60 Random Glucose 75 (60-115) mg/dL Calcium 9.5 (8.4-10.2) mg/dL Magnesium 2.1 (1.6-2.6) mg/dL Total Bilirubin 0.5 (0.0-1.0) mg/dL Direct Bilirubin 0.1 (0.0-0.5) mg/dL AST 17 (5-31) U/L ALT 13 (0-31) U/L Alkaline Phosphatase 47 (39-117) U/L Troponin I High Sens < 2.7 (<3.5-17.0) ng/L Total Protein 8.0 (6.5-8.0) g/dL Albumin 4.4 (3.5-5.0) g/dL COVID-19 ([facility]IE) (Negative) COVID-19 Clin Com 11/10/22 Range/Units 16:51 WBC (4.8-10.8) X10*3/uL RBC (4.20-5.50) X10*6/uL Hgb (12.0-16.0) g/dl Hct (37.0-47.0) % MCV (80.0-98.0) fL MCH (27.0-33.0) pg MCHC (31.0-35.0) g/dl RDW (11.0-16.0) % Plt Count (160-400) X10*3/uL MPV (9.4-12.3) fL Immature Gran % (Auto) (0.0-0.4) % Neut % (Auto) (45-73) % Lymph % (Auto) (20-40) % [place] % (Auto) (2-11) % Eos % (Auto) (0-4) % Baso % (Auto) (0-2) % Lymph # (Auto) (1.2-4.9) X10*3/uL [place] # (Auto) (0.1-1.2) X10*3/uL Eos # (Auto) (0.0-0.4) X10*3/uL Baso # (Auto) (0.0-0.2) X10*3/uL Abs Immat Gran (auto) (0.00-0.03) X10*3/uL Absolute Neuts (auto) (2.0-8.3) x10*3/uL Absolute Nucleated RBC (0.0-0.012) X10*3/uL Nucleated RBC % (auto) (0.0-0.2) /100WBC Sodium (135-145) mmol/L Potassium (3.3-5.1) mmol/L Chloride (96-108) mmol/L Carbon Dioxide (22-29) mmol/L Anion Gap (12-20) BUN (9-16) mg/dL Creatinine (0.5-1.4) mg/dL Estim Creat Clear Calc Estimated GFR Random Glucose (60-115) mg/dL Calcium (8.4-10.2) mg/dL Magnesium (1.6-2.6) mg/dL Total Bilirubin (0.0-1.0) mg/dL Direct Bilirubin (0.0-0.5) mg/dL AST (5-31) U/L ALT (0-31) U/L Alkaline Phosphatase (39-117) U/L Troponin I High Sens (<3.5-17.0) ng/L Total Protein (6.5-8.0) g/dL Albumin (3.5-5.0) g/dL COVID-19 ([facility]) Negative (Negative) COVID-19 Clin Com See Note Independent Interpretation I performed an independent interpretation of an: EKG and Plain X-Ray Interpretation: I independently reviewed the chest x-ray and agree with radiologist's report I independently reviewed the EKG which shows normal sinus rhythm, rate of 61, normal AL, normal QRS, normal QT-when compared to previous EKG 06/19/2022 there is no change Radiology Impression Discussion of test interpretation with radiology: I have reviewed the radiologist's reading. Radiologist Impression: [address] [address] XRay Report Signed Patient: Ginette Arceo MR#: [id number] : 1975 Acct:[id number] Age/Sex: 47 / F ADM Date: 11/10/22 Loc: .ED Attending Dr: Ordering Physician: Orquidea Torres NP Date of Service: 11/10/22 Procedure(s): XR chest 2V Accession Number(s): [id number] cc: Orquidea Torres NP~ EXAMINATION: XR CHEST CLINICAL INFORMATION: Chest pain COMPARISON: June 19, 2022 TECHNIQUE: 2 views of the chest were obtained. FINDINGS: No significant abnormality is noted involving the heart, lungs, mediastinum, bony thorax or soft tissues. Patient is status post right axillary surgery with clips in place. XR/XR chest 2V IMPRESSION: No acute disease. Discharge Plan Discharge Clinical Impression: Left wrist pain, Yeast infection Patient Disposition: Home, Self-Care Instructions: Yeast Infection (ED), Arthralgia (ED) Prescriptions: New cyclobenzaprine 5 mg tablet 5 mg PO TID PRN (Reason: muscle spasm) Qty: 10 0RF nystatin 100,000 unit/gram powder 1 appl topical BID Qty: 30 0RF No Action (DME) adhesive bandage 1 bandage See Rx Instructions .ROUTE .MEDSUPPLY Qty: 20 5RF Rx Instructions: Use after Methotrexate injection folic acid 1 mg tablet 1 mg PO QAM Qty: 90 1RF methotrexate sodium 2.5 mg tablet 20 mg PO QWEEK Qty: 32 2RF pantoprazole 40 mg tablet,delayed release (DR/EC) 40 mg PO DAILY Qty: 90 1RF benztropine 0.5 mg Tablet 0.5 mg PO DAILY baclofen 5 mg tablet 5 mg PO TID PRN (Reason: Muscle spasms) Qty: 10 0RF gabapentin 400 mg capsule 400 mg PO TID trazodone 150 mg tablet 1 tab PO BEDTIME PRN (Reason: Sleep) risperidone 1 mg tablet 0.5 mg PO DAILY PRN (Reason: Agitation) aspirin 81 mg capsule 81 mg PO DAILY 14 Days Qty: 14 0RF diclofenac sodium 1 % gel 4 g topical QID Qty: 100 0RF Rx Instructions: apply to single knee, ankle, foot; for foot includes sole/toes/top of foot oxycodone 5 mg tablet 5 mg PO Q8H PRN (Reason: pain) Qty: 10 0RF Rx Instructions: Partial Fill upon patient request. famotidine 20 mg tablet 1 tab PO BID@1200,2100 ferrous sulfate [FeroSul] 325 mg (65 mg iron) tablet 1 tab PO QAM albuterol sulfate [ProAir HFA] 90 mcg/actuation HFA aerosol inhaler 2 puff PO Q4-6H PRN (Reason: Wheezing) duloxetine 60 mg capsule,delayed release(DR/EC) 1 cap PO BID ursodiol 500 mg tablet 500 mg PO BID Qty: 90 1RF cyclobenzaprine 10 mg tablet 10 mg PO TID PRN (Reason: muscle spasm) Qty: 10 0RF lidocaine [Lidoderm] 5 % adhesive patch,medicated 1 patch topical DAILY Qty: 15 0RF Rx Instructions: leave on most painful area for up to 12 hrs oxycodone-acetaminophen 5-325 mg tablet 1 tab PO Q8H PRN (Reason: pain) docusate sodium 100 mg capsule 100 mg PO BEDTIME PRN (Reason: Constipation) alprazolam 2 mg tablet 2 mg PO BEDTIME PRN (Reason: Anxiety) Incruse Ellipta 62.5 mcg/actuation blister with device 1 inh inhalation DAILY 30 Days Qty: 1 6RF nicotine 14 mg/24 hr patch 24 hour 1 patch topical DAILY hydrochlorothiazide 12.5 mg tablet 12.5 mg PO DAILY prednisone 10 mg tablet 10 mg .ROUTE DAILY Qty: 30 3RF Rx Instructions: take with breakfast Eliquis 5 mg tablet 5 mg PO BID acetaminophen 500 mg tablet 500 - 1,000 mg PO Q8-10H PRN (Reason: pain) Qty: 100 4RF tocilizumab 162 mg/0.9 mL pen injector 162 mg subcut QWEEK Qty: 3.6 4RF Rx Instructions: note increase to once a week cyclobenzaprine 5 mg tablet 5 mg PO TID PRN (Reason: muscle spasm) Qty: 30 0RF Referrals: Mackenzie Estrada MD [Primary Care Provider] - 1 week Interventions: ED Discharge Assessment Last Done: 11/10/22 19:25 Discharge Date/Time: 11/10/22 19:26 Print Language: Portuguese
--- NOTE | 2022-11-10 16:07 | ECG_ITS ---
Test Reason : LEFT ARM PAIN Blood Pressure : / mmHG Vent. Rate : 061 BPM Atrial Rate : 061 BPM P-R Int : 166 ms QRS Dur : 112 ms QT Int : 420 ms P-R-T Axes : 061 -48 052 degrees QTc Int : 422 ms Normal sinus rhythm Incomplete right bundle branch block Left anterior fascicular block Moderate voltage criteria for LVH, may be normal variant ( R in aVL , Tarrs product ) Septal infarct , age undetermined Abnormal ECG When compared with ECG of 19-JUN-2022 09:42, No significant change was found Referred By: Orquidea Mon Electronically Signed By:OLGA KINGSTON MD
[2022-11-10 16:55] LABS: MANUAL DIFF FLAG NO
[2022-11-10 17:03] LABS: Basophils Percent Auto 0.2 % (0-2); Eosinophils Percent Auto 0.7 % (0-4); Hematocrit 37.9 % (37.0-47.0); Hemoglobin 12.5 g/dl (12.0-16.0); Imm Gran Abs Auto 0.01 X10*3/uL (0.00-0.03); Imm Gran Pct Auto 0.2 % (0.0-0.4); Lymphocytes Percent Auto 37.4 % (20-40); Mean Corpuscular Hemoglobin 31.6 pg (27.0-33.0); Mean Corpuscular Volume 95.9 fL (80.0-98.0); Monocytes Absolute Auto 0.3 X10*3/uL (0.1-1.2); Neutrophils Percent Auto 55.5 % (45-73); Platelet Count 222 X10*3/uL (160-400); Red Blood Count 3.95 X10*6/uL (4.20-5.50); Red Cell Distribution Width 14.8 % (11.0-16.0); White Blood Count 5.5 X10*3/uL (4.8-10.8)
[2022-11-10 17:11] LABS: Alanine Aminotransferase 13 U/L (0-31); Albumin Level 4.4 g/dL (3.5-5.0); Alkaline Phosphatase 47 U/L (39-117); Anion Gap 13 (12-20); Aspartate Amino Transferase 17 U/L (5-31); Bilirubin Direct 0.1 mg/dL (0.0-0.5); Bilirubin Total 0.5 mg/dL (0.0-1.0); Blood Urea Nitrogen 8 mg/dL (9-16); Calcium 9.5 mg/dL (8.4-10.2); Carbon Dioxide 25 mmol/L (22-29); Chloride 105 mmol/L (96-108); Creatinine Clr Calc Pharmacy 101.2; Estimated Glomerular Filt Rate > 60; Glucose Random 75 mg/dL (60-115); Magnesium 2.1 mg/dL (1.6-2.6); Sodium 139 mmol/L (135-145)
[2022-11-10 17:15] LABS: COVID-19 Test Negative (Negative); IDNOW Serial# BCCEAD1C
[2022-11-10 17:23] LABS: Troponin-I High Sensitivity < 2.7 ng/L (<3.5-17.0)
== END 2022-11-10 19:26 | disposition home or self-care (01) ==
PROVIDERS: Nurse Practitioner Family; Emergency Provider Emergency Medicine; PCP General Practice
DX: B37.2 Candidiasis of skin and nail (principal); M25.532 Pain in left wrist; R50.9 Fever, unspecified; C81.90 Hodgkin lymphoma, unspecified, unspecified site; Z85.830 Personal history of malignant neoplasm of bone; Z85.118 Personal history of other malignant neoplasm of bronchus and lung; Z85.29 Personal history of malignant neoplasm of other respiratory and intrathoracic organs; Z20.822 Contact with and (suspected) exposure to COVID-19
CPT/HCPCS: 71046; 80048; 80076; 83735; 84484; 85025; 87635; 93005; 99283

== ENCOUNTER 2022-11-22 16:32 | Emergency (ER) | payer MEDICAID, SELFPAY ==
--- NOTE | ~2022-11-22 | XR_ITS ---
EXAMINATION: XR HAND/WRIST, RIGHT CLINICAL INFORMATION: Swelling and pain. COMPARISON: 11/13/2021 and 06/19/2022 TECHNIQUE: PA, lateral, and oblique views of the right hand and wrist. FINDINGS: Assessment of the phalanges is somewhat limited by the degree of flexion on these images. Ill-defined periostitis is again seen at the index finger PIP joint at the base of the middle phalanx head of the proximal phalanx. There is mild radiocarpal arthrosis with small marginal osteophytes. No acute fractures are identified. Joint spaces appear relatively well-preserved. No new erosions are identified. Mild generalized soft tissue swelling, most pronounced at the index finger. XR/XR hand wrist RT IMPRESSION: Chronic periostitis at the index finger PIP joint with surrounding soft tissue swelling, possibly due to previous infection or chronic changes of a inflammatory arthropathy. Mild arthrosis at the radiocarpal joint. No acute osseous findings.
--- NOTE | ~2022-11-22 | US_ITS ---
EXAMINATION: US VENOUS WITH DOPPLER UPPER EXTREMITY, RIGHT CLINICAL INFORMATION: Swelling COMPARISON: None available. TECHNIQUE: Ultrasound of the upper extremity is performed using compression sonography and color and pulse Doppler flow with assessment of augmentation of flow. There is also imaging and Doppler assessment of the jugular and subclavian veins. Spectral analysis with color-flow imaging is performed. FINDINGS: The right internal jugular, subclavian, axillary, brachial, basilic, and cephalic veins are patent. The radial and ulnar veins in the forearm are patent. US/US venous duplex UE RT IMPRESSION: No DVT demonstrated in the right upper extremity.
[2022-11-22 16:38] VITALS: BP 146/79; PULSE 82; RESP 18; TEMP 36.1; O2SAT 94; BMI 29.0
--- NOTE | 2022-11-22 16:38 | ED_ITS ---
HPI - Extremity Injury (Upper) General Chief Complaint: Extremity Injury, Upper <SAFIA Vela - Last Filed: 11/22/22 16:45> Stated Complaint: ? blood clot right hand per Dr <SAFIA Vela - Last Filed: 11/22/22 16:45> Time Seen by Provider: 11/22/22 20:22 <SAFIA Vela - Last Filed: 11/22/22 16:45> Source: patient <SAFIA Rachel - Last Filed: 11/22/22 23:20> Mode of arrival: ambulatory <SAFIA Rachel - Last Filed: 11/22/22 23:20> Limitations: no limitations <SAFIA Rachel - Last Filed: 11/22/22 23:20> History of Present Illness HPI narrative: This is a 47-year-old female history of RA, on long-term methotrexate, history of DVT anticoagulated on apixaban, history of DVT of the leg again anticoagulated, osteoarthritis of spine, Hodgkin's disease presenting with atraumatic right hand/wrist pain and swelling that started yesterday and has been progressively worsening. Patient tells me pain is worse with movement bett er rest. She tells me she woke up this way. Denies direct trauma to the area denies fevers, chills, chest pain, shortness of breath, nausea, vomiting, abdominal pain, numbness and tingling. <SAFIA Rachel - Last Filed: 11/22/22 23:20> Related Data Home Medications: Home Medications Medication Instructions Recorded Confirmed benztropine 0.5 mg tablet 0.5 mg PO DAILY 05/01/20 09/22/22 albuterol sulfate 90 mcg/actuation 2 puff PO Q4-6H PRN Wheezing 10/02/21 09/22/22 aerosol inhaler (ProAir HFA) duloxetine 60 mg capsule,delayed 1 cap PO BID 10/02/21 09/22/22 release famotidine 20 mg tablet 1 tab PO BID@1200,2100 10/02/21 09/22/22 ferrous sulfate 325 mg (65 mg 1 tab PO QAM 10/02/21 09/22/22 iron) tablet (FeroSul) gabapentin 400 mg capsule 400 mg PO TID 10/22/21 09/22/22 risperidone 1 mg tablet 0.5 mg PO DAILY PRN Agitation 10/22/21 09/22/22 trazodone 150 mg tablet 1 tab PO BEDTIME PRN Sleep 10/22/21 09/22/22 nicotine 14 mg/24 hr daily 1 patch topical DAILY 03/01/22 09/22/22 transdermal patch hydrochlorothiazide 12.5 mg tablet 12.5 mg PO DAILY 03/02/22 09/22/22 alprazolam 2 mg tablet 2 mg PO BEDTIME PRN Anxiety 04/19/22 09/22/22 docusate sodium 100 mg capsule 100 mg PO BEDTIME PRN Constipation 04/19/22 09/22/22 oxycodone-acetaminophen 5 mg-325 1 tab PO Q8H PRN pain 04/19/22 09/22/22 mg tablet apixaban 5 mg tablet (Eliquis) 5 mg PO BID 09/22/22 09/22/22 Previous Rx's Medication Instructions Recorded adhesive bandage 1 #20 ea 05/21/20 baclofen 5 mg tablet 5 mg PO TID PRN Muscle spasms #10 09/08/21 tabs ursodiol 500 mg tablet 500 mg PO BID #90 tabs 10/08/21 aspirin 81 mg capsule 81 mg PO DAILY 14 days #14 caps 02/18/22 umeclidinium 62.5 mcg/actuation 1 inh inhalation DAILY 30 days #1 03/02/22 blister powder for inhalation ea (Incruse Ellipta) diclofenac sodium 1 % topical gel 4 g topical QID #100 grams 03/28/22 oxycodone 5 mg tablet 5 mg PO Q8H PRN pain #10 tabs 04/18/22 folic acid 1 mg tablet 1 mg PO QAM #90 tabs 08/17/22 cyclobenzaprine 10 mg tablet 10 mg PO TID PRN muscle spasm #10 08/20/22 tabs lidocaine 5 % topical patch 1 patch topical DAILY #15 ea 08/20/22 (Lidoderm) methotrexate sodium 2.5 mg tablet 20 mg PO QWEEK #32 tabs 09/20/22 acetaminophen 500 mg tablet 500 - 1,000 mg PO Q8-10H PRN pain 09/22/22 #100 tabs cyclobenzaprine 5 mg tablet 5 mg PO TID PRN muscle spasm #30 09/22/22 tabs tocilizumab 162 mg/0.9 mL 162 mg (0.9 mL) subcut QWEEK #3.6 09/22/22 subcutaneous pen injector mL pantoprazole 40 mg tablet,delayed 40 mg PO DAILY #90 tabs 10/29/22 release prednisone 10 mg tablet 10 mg .Route DAILY #30 tabs 11/08/22 cyclobenzaprine 5 mg tablet 5 mg PO TID PRN muscle spasm #10 11/10/22 tabs nystatin 100,000 unit/gram topical 1 appl topical BID #30 grams 11/10/22 powder oxycodone 5 mg capsule 5 mg PO BID PRN pain #6 caps 11/22/22 prednisone 20 mg tablet 40 mg PO DAILY 5 days #10 tabs 11/22/22 <SAFIA Vela - Last Filed: 11/22/22 16:45> Allergies/Adverse Reactions: Allergies Allergy/AdvReac Type Severity Reaction Status Date / Time almond [ALMONDS] Allergy Severe ANAPHYLAXIS Verified 11/22/22 16:42 adhesive tape [ADHESIVE TAPE] Allergy Intermediate RASH Verified 11/22/22 16:42 morphine [MORPHINE] Allergy Intermediate GI UPSET, Verified 11/22/22 16:42 difficulty breathing tramadol [TRAMADOL] AdvReac Unknown NAUSEA & Verified 11/22/22 16:42 VOMITING <SAFIA Vela Last Filed: 11/22/22 16:45> Review of Systems Review of Systems: Constitutional : No Weight loss, No Fever, No Chills, No Fatigue, No Malaise ENT/Mouth : No sore throat, No Rhinorrhea Eyes: No Eye Pain, No Swelling, No Redness Cardiovascular : No Chest Pain, No SOB, No Dyspnea on Exertion, No Orthopnea, No Edema, No Palpitations Respiratory : No Cough, No Sputum, No Wheezing Gastrointestinal : No Nausea, No Vomiting, No Diarrhea, No Constipation, No abdominal Pain, No Hematochezia, No Melena Genitourinary : No Dysuria, No Urinary Frequency, No Hematuria, Musculoskeletal : + joint pain, No Myalgias, + Joint Swelling Skin : No Skin Lesions, No rash Neuro : No Weakness, No Numbness, No Dizziness, No Headache Psych : No Anxiety/Panic, No Depression All other systems reviewed and are negative <SAFIA aRchel - Last Filed: 11/22/22 23:20> Yes all other systems are reviewed and are negative <SAFIA Rachel - Last Filed: 11/22/22 23:20> [facility] Past Medical History Attestation statement: The following information was validated with the patient. <SAFIA Rachel - Last Filed: 11/22/22 23:20> Source: old records reviewed and nursing notes reviewed <SAFIA Rachel - Last Filed: 11/22/22 23:20> Medical History: Medical History Acute arthritis Bleeding hemorrhoid Bone cancer Cancer of heart Chronic GERD De Quervain's disease (tenosynovitis) Degeneration of intervertebral disc at C4-C5 level Degeneration, intervertebral disc, lumbar Depressive disorder Esophageal dysphagia Fibromyalgia Gallstones History of chemotherapy History of chemotherapy Hodgkin disease Lung cancer Nocturia Osteoarthritis of spine with radiculopathy, lumbar region Rheumatoid arthritis involving multiple sites Seropositive rheumatoid arthritis Stress incontinence in female Systemic lupus erythematosus Urgency-frequency syndrome Vitamin D deficiency <SAFIA Vela - Last Filed: 11/22/22 16:45> Surgical History: Surgical History H/O tubal ligation History of angioplasty of vein History of biopsy History of esophagogastroduodenoscopy (EGD) History of lymph node dissection of left axilla History of repair of inguinal hernia Hx laparoscopic cholecystectomy Hx of colonoscopy Hx of endoscopy <SAFIA Vela - Last Filed: 11/22/22 16:45> Family History Family History: Family History Maternal Grandmother Ovarian cancer <SAFIA Vela - Last Filed: 11/22/22 16:45> Social History Social History: Social History Household Members: Spouse Housing: Apartment Are you a primary point of care specialist to a significant other at home: No Do 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 have 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) Alcohol intake: never Patient Tobacco Use Status: Never used Tobacco Tobacco use type: Cigarette Substance Use Type: Marijuana Advance Directives: No Advance Directives Information Provided: No Advance Directives Date on File: 09/23/20 service: No Current occupational status: disabled 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 <SAFIA Vela - Last Filed: 11/22/22 16:45> Physical Exam Vital Signs: Vital Signs: Last Vital Signs Temp 97.8 F 11/22/22 21:52 Pulse 64 11/22/22 21:52 Resp 20 11/22/22 21:52 BP 125/85 11/22/22 21:52 Pulse Ox 98 11/22/22 21:52 O2 Del Method Room Air 11/22/22 21:52 BMI result Body Mass Index 29.0 <SAFIA Vela - Last Filed: 11/22/22 16:45> Vital Signs: Last Vital Signs Temp 97.8 F 11/22/22 21:52 Pulse 64 11/22/22 21:52 Resp 20 11/22/22 21:52 BP 125/85 11/22/22 21:52 Pulse Ox 98 11/22/22 21:52 O2 Del Method Room Air 11/22/22 21:52 BMI result Body Mass Index 29.0 vss <SAFIA Rachel - Last Filed: 11/22/22 23:20> Appearance: Alert.? Oriented X3.? No acute distress.? Head: Normocephalic, atraumatic, no step-offs or deformities Eyes: Pupils equal, round and reactive to light.? ENT: Pharynx normal.? Neck: Normal inspection.? Neck supple.? CVS: Normal heart rate and rhythm.? Pulses normal.? Respiratory: No respiratory distress.? Breath sounds normal.? Abdomen: Soft and nontender.? Skin: Skin warm and dry.? Normal skin color.? Normal skin turgor.? Extremities: No lower extremity edema.? No calf ttp. 5/5 strength to bilateral upper and lower extremities. There is pain and swelling noted to the right hand, wrist, patient has full range of motion to bilateral upper extremities including wrists, fingers however painful on the right-hand side normal on the left. 2+ radial pulses equal bilateral, capillary refill less than 2 seconds to bilateral upper extremities. No wrist drop. Normal sensation. Back: No midline tenderness, no C-spine tenderness, full range of motion, no CVA tenderness bilaterally Neuro: Oriented X 3.? No motor deficit.? No sensory deficit. CN 2-12 intact <SAFIA Rachel - Last Filed: 11/22/22 23:20> Course Course Course Narrative: RME: 47yo F w/PMHx RA, Lupus, DVT on Eliquis, Hodgkin's, sent in by PCP for UE DVT r/o. Patient admits woke up with RLE pain and swelling. denies injury/fall. Admits to mild SOB. Has been compliant with Eliquis R hand/distal forearm with swelling and +ttp. NV intact. decreased ROM from pain EKG, Labs, XR, US ordered Full HPI, ROS and PE to be performed by primary ED provider. <SAFIA Vela - Last Filed: 11/22/22 16:45> Reevaluation(s) Reevaluation #1: Venous duplex with no DVT in the right upper extremity appear if hand and wrist with chronic periostitis in the index finger PIP joint with soft tissue swelling. Mild arthrosis. Patient given prednisone, tylenol, oxycodone. Plan dc home with prednisone, oxycodone, and rheumatology f/u liane. Educated patient on diagnosis and treatment plan, answered all question, patient verbalizes understanding. At this time patient will be discharged home, advised to return with new or worsening symptoms. Educated on worrisome signs and symptoms and when to return. At this time I feel comfortable discharge home. <SAFIA Rachel - Last Filed: 11/22/22 23:20> Time: 23:20 <SAFIA Rachel - Last Filed: 11/22/22 23:20> Medications Administered Discontinued Medications Generic Name Dose Route Start Last Admin Trade Name Oscarq PRN Reason Stop Dose Admin Acetaminophen 650 mg 11/22/22 20:53 11/22/22 20:57 Acetaminophen 325 Mg Tablet PO 11/22/22 20:54 650 mg ONCE ONE Administration Oxycodone HCl 5 mg 11/22/22 21:12 11/22/22 21:20 Oxycodone Hcl Immed Release 5 Mg Tablet PO 11/22/22 21:13 5 mg ONCE ONE Administration Prednisone 40 mg 11/22/22 20:53 11/22/22 20:57 Prednisone 20 Mg Tablet PO 11/22/22 20:54 40 mg ONCE ONE Administration <SAFIA Vela - Last Filed: 11/22/22 16:45> Medications Administered Discontinued Medications Generic Name Dose Route Start Last Admin Trade Name Starla PRN Reason Stop Dose Admin Acetaminophen 650 mg 11/22/22 20:53 11/22/22 20:57 Acetaminophen 325 Mg Tablet PO 11/22/22 20:54 650 mg ONCE ONE Administration Oxycodone HCl 5 mg 11/22/22 21:12 11/22/22 21:20 Oxycodone Hcl Immed Release 5 Mg Tablet PO 11/22/22 21:13 5 mg ONCE ONE Administration Prednisone 40 mg 11/22/22 20:53 11/22/22 20:57 Prednisone 20 Mg Tablet PO 11/22/22 20:54 40 mg ONCE ONE Administration <SAFIA Rachel - Last Filed: 11/22/22 23:20> Medical Decision Making Medical Decision Making [facility] Narrative: 2313 47-year-old female presents with atraumatic right wrist and hand swelling. Worsening over the past 2 days On exam No lower extremity edema.? No calf ttp. 5/5 strength to bilateral upper and lower extremities. There is pain and swelling noted to the right hand, wrist, patient has full range of motion to bilateral upper extremities including wrists, fingers however painful on the right-hand side normal on the left. 2+ radial pulses equal bilateral, capillary refill less than 2 seconds to bilateral upper extremities. No wrist drop. Normal sensation. Patient without chest pain, shortness of breath unlikely PE, venous occlusion or arterial occlusion patient anticoagulated. This is likely gout, pseudogout versus inflammatory arthritis. No signs of threatened limb, neurovascular compromise. Unlikely fractures or dislocations. Plan at this time imaging as ordered from triage <SAFIA Rachel Last Filed: 11/22/22 23:20> Differential Diagnosis Differential Diagnoses: The differential diagnosis associated with the presentation includes <SAFIA Rachel Last Filed: 11/22/22 23:20> Patient without chest pain, shortness of breath unlikely PE, venous occlusion or arterial occlusion patient anticoagulated. This is likely gout, pseudogout versus inflammatory arthritis. No signs of threatened limb, neurovascular compromise. Unlikely fractures or dislocations. <SAFIA Rachel - Last Filed: 11/22/22 23:20> Admission/Observation Consideration of admission/observation: Escalation of care including admission/observation considered <SAFIA Rachel - Last Filed: 11/22/22 23:20> Unlikely <SAFIA Rachel - Last Filed: 11/22/22 23:20> Lab Data Result Diagrams: 11/22/22 17:28 11/22/22 17:28 <SAFIA Vela - Last Filed: 11/22/22 16:45> Labs: Lab Results 11/22/22 11/22/22 11/22/22 Range/Units 17:28 17:28 17:28 WBC 8.9 (4.8-10.8) X10*3/uL RBC 3.57 L (4.20-5.50) X10*6/uL Hgb 11.7 L (12.0-16.0) g/dl Hct 34.8 L (37.0-47.0) % MCV 97.5 (80.0-98.0) fL MCH 32.8 (27.0-33.0) pg MCHC 33.6 (31.0-35.0) g/dl RDW 14.6 (11.0-16.0) % Plt Count 247 (160-400) X10*3/uL MPV 10.4 (9.4-12.3) fL Immature Gran % (Auto) 0.3 (0.0-0.4) % Neut % (Auto) 83.9 H (45-73) % Lymph % (Auto) 11.9 L (20-40) % Irwin % (Auto) 3.5 (2-11) % Eos % (Auto) 0.1 (0-4) % Baso % (Auto) 0.3 (0-2) % Lymph # (Auto) 1.1 L (1.2-4.9) X10*3/uL Irwin # (Auto) 0.3 (0.1-1.2) X10*3/uL Eos # (Auto) 0.0 (0.0-0.4) X10*3/uL Baso # (Auto) 0.0 (0.0-0.2) X10*3/uL Abs Immat Gran (auto) 0.03 (0.00-0.03) X10*3/uL Absolute Neuts (auto) 7.4 (2.0-8.3) x10*3/uL Absolute Nucleated RBC 0.000 (0.0-0.012) X10*3/uL Nucleated RBC % (auto) 0.0 (0.0-0.2) /100WBC ESR 51 H (0-20) MM/HR PT (10.0-13.1) SEC INR (0.9-1.1) Sodium 140 (135-145) mmol/L Potassium 4.1 (3.3-5.1) mmol/L Chloride 107 (96-108) mmol/L Carbon Dioxide 22 (22-29) mmol/L Anion Gap 15 (12-20) BUN 12 (9-16) mg/dL Creatinine 0.80 (0.5-1.4) mg/dL Estim Creat Clear Calc 94.6 Estimated GFR > 60 Random Glucose 97 (60-115) mg/dL Calcium 9.3 (8.4-10.2) mg/dL Total Bilirubin 0.3 (0.0-1.0) mg/dL Direct Bilirubin 0.1 (0.0-0.5) mg/dL AST 13 (5-31) U/L ALT 11 (0-31) U/L Alkaline Phosphatase 50 (39-117) U/L C-Reactive Protein 1.55 H (< or = 0.50) mg/dL B-Natriuretic Peptide (<100) pg/mL Total Protein 7.8 (6.5-8.0) g/dL Albumin 4.2 (3.5-5.0) g/dL 11/22/22 11/22/22 Range/Units 17:28 17:28 WBC (4.8-10.8) X10*3/uL RBC (4.20-5.50) X10*6/uL Hgb (12.0-16.0) g/dl Hct (37.0-47.0) % MCV (80.0-98.0) fL MCH (27.0-33.0) pg MCHC (31.0-35.0) g/dl RDW (11.0-16.0) % Plt Count (160-400) X10*3/uL MPV (9.4-12.3) fL Immature Gran % (Auto) (0.0-0.4) % Neut % (Auto) (45-73) % Lymph % (Auto) (20-40) % Irwin % (Auto) (2-11) % Eos % (Auto) (0-4) % Baso % (Auto) (0-2) % Lymph # (Auto) (1.2-4.9) X10*3/uL Irwin # (Auto) (0.1-1.2) X10*3/uL Eos # (Auto) (0.0-0.4) X10*3/uL Baso # (Auto) (0.0-0.2) X10*3/uL Abs Immat Gran (auto) (0.00-0.03) X10*3/uL Absolute Neuts (auto) (2.0-8.3) x10*3/uL Absolute Nucleated RBC (0.0-0.012) X10*3/uL Nucleated RBC % (auto) (0.0-0.2) /100WBC ESR (0-20) MM/HR PT 12.2 (10.0-13.1) SEC INR 1.1 (0.9-1.1) Sodium (135-145) mmol/L Potassium (3.3-5.1) mmol/L Chloride (96-108) mmol/L Carbon Dioxide (22-29) mmol/L Anion Gap (12-20) BUN (9-16) mg/dL Creatinine (0.5-1.4) mg/dL Estim Creat Clear Calc Estimated GFR Random Glucose (60-115) mg/dL Calcium (8.4-10.2) mg/dL Total Bilirubin (0.0-1.0) mg/dL Direct Bilirubin (0.0-0.5) mg/dL AST (5-31) U/L ALT (0-31) U/L Alkaline Phosphatase (39-117) U/L C-Reactive Protein (< or = 0.50) mg/dL B-Natriuretic Peptide 47 (<100) pg/mL Total Protein (6.5-8.0) g/dL Albumin (3.5-5.0) g/dL <SAFIA Vela - Last Filed: 11/22/22 16:45> Lab Results 11/22/22 11/22/22 11/22/22 Range/Units 17:28 17:28 17:28 WBC 8.9 (4.8-10.8) X10*3/uL RBC 3.57 L (4.20-5.50) X10*6/uL Hgb 11.7 L (12.0-16.0) g/dl Hct 34.8 L (37.0-47.0) % MCV 97.5 (80.0-98.0) fL MCH 32.8 (27.0-33.0) pg MCHC 33.6 (31.0-35.0) g/dl RDW 14.6 (11.0-16.0) % Plt Count 247 (160-400) X10*3/uL MPV 10.4 (9.4-12.3) fL Immature Gran % (Auto) 0.3 (0.0-0.4) % Neut % (Auto) 83.9 H (45-73) % Lymph % (Auto) 11.9 L (20-40) % Irwin % (Auto) 3.5 (2-11) % Eos % (Auto) 0.1 (0-4) % Baso % (Auto) 0.3 (0-2) % Lymph # (Auto) 1.1 L (1.2-4.9) X10*3/uL Irwin # (Auto) 0.3 (0.1-1.2) X10*3/uL Eos # (Auto) 0.0 (0.0-0.4) X10*3/uL Baso # (Auto) 0.0 (0.0-0.2) X10*3/uL Abs Immat Gran (auto) 0.03 (0.00-0.03) X10*3/uL Absolute Neuts (auto) 7.4 (2.0-8.3) x10*3/uL Absolute Nucleated RBC 0.000 (0.0-0.012) X10*3/uL Nucleated RBC % (auto) 0.0 (0.0-0.2) /100WBC ESR 51 H (0-20) MM/HR PT (10.0-13.1) SEC INR (0.9-1.1) Sodium 140 (135-145) mmol/L Potassium 4.1 (3.3-5.1) mmol/L Chloride 107 (96-108) mmol/L Carbon Dioxide 22 (22-29) mmol/L Anion Gap 15 (12-20) BUN 12 (9-16) mg/dL Creatinine 0.80 (0.5-1.4) mg/dL Estim Creat Clear Calc 94.6 Estimated GFR > 60 Random Glucose 97 (60-115) mg/dL Calcium 9.3 (8.4-10.2) mg/dL Total Bilirubin 0.3 (0.0-1.0) mg/dL Direct Bilirubin 0.1 (0.0-0.5) mg/dL AST 13 (5-31) U/L ALT 11 (0-31) U/L Alkaline Phosphatase 50 (39-117) U/L C-Reactive Protein 1.55 H (< or = 0.50) mg/dL B-Natriuretic Peptide (<100) pg/mL Total Protein 7.8 (6.5-8.0) g/dL Albumin 4.2 (3.5-5.0) g/dL 11/22/22 11/22/22 Range/Units 17:28 17:28 WBC (4.8-10.8) X10*3/uL RBC (4.20-5.50) X10*6/uL Hgb (12.0-16.0) g/dl Hct (37.0-47.0) % MCV (80.0-98.0) fL MCH (27.0-33.0) pg MCHC (31.0-35.0) g/dl RDW (11.0-16.0) % Plt Count (160-400) X10*3/uL MPV (9.4-12.3) fL Immature Gran % (Auto) (0.0-0.4) % Neut % (Auto) (45-73) % Lymph % (Auto) (20-40) % Irwin % (Auto) (2-11) % Eos % (Auto) (0-4) % Baso % (Auto) (0-2) % Lymph # (Auto) (1.2-4.9) X10*3/uL Irwin # (Auto) (0.1-1.2) X10*3/uL Eos # (Auto) (0.0-0.4) X10*3/uL Baso # (Auto) (0.0-0.2) X10*3/uL Abs Immat Gran (auto) (0.00-0.03) X10*3/uL Absolute Neuts (auto) (2.0-8.3) x10*3/uL Absolute Nucleated RBC (0.0-0.012) X10*3/uL Nucleated RBC % (auto) (0.0-0.2) /100WBC ESR (0-20) MM/HR PT 12.2 (10.0-13.1) SEC INR 1.1 (0.9-1.1) Sodium (135-145) mmol/L Potassium (3.3-5.1) mmol/L Chloride (96-108) mmol/L Carbon Dioxide (22-29) mmol/L Anion Gap (12-20) BUN (9-16) mg/dL Creatinine (0.5-1.4) mg/dL Estim Creat Clear Calc Estimated GFR Random Glucose (60-115) mg/dL Calcium (8.4-10.2) mg/dL Total Bilirubin (0.0-1.0) mg/dL Direct Bilirubin (0.0-0.5) mg/dL AST (5-31) U/L ALT (0-31) U/L Alkaline Phosphatase (39-117) U/L C-Reactive Protein (< or = 0.50) mg/dL B-Natriuretic Peptide 47 (<100) pg/mL Total Protein (6.5-8.0) g/dL Albumin (3.5-5.0) g/dL <SAFIA Rachel - Last Filed: 11/22/22 23:20> Independent Interpretation I performed an independent interpretation of an: Plain X-Ray ( XR/XR hand wrist RT IMPRESSION: Chronic periostitis at the index finger PIP joint with surrounding soft tissue swelling, possibly due to previous infection or chronic changes of a inflammatory arthropathy. Mild arthrosis at the radiocarpal joint. No acute osseous findings. ) <SAFIA Rachel - Last Filed: 11/22/22 23:20> Interpretation: S/US venous duplex UE RT IMPRESSION: No DVT demonstrated in the right upper extremity. <SAFIA Rachel - Last Filed: 11/22/22 23:20> Radiology Impression Discussion of test interpretation with radiology: I have reviewed the radiologist's reading. <SAFIA Rachel - Last Filed: 11/22/22 23:20> Prescription Management I considered prescription management with: Pain Medication <SAFIA Rachel - Last Filed: 11/22/22 23:20> Core Measures AMI core measures followed: Yes <SAFIA Rachel - Last Filed: 11/22/22 23:20> Measure exclusions: not indicated <SAFIA Rachel - Last Filed: 11/22/22 23:20> Discharge Plan Discharge Clinical Impression: Inflammatory arthritis <SAFIA Vela - Last Filed: 11/22/22 16:45> Patient Disposition: Home, Self-Care <SAFIA Vela - Last Filed: 11/22/22 16:45> Instructions: Osteoarthritis (ED) <SAFIA Vela - Last Filed: 11/22/22 16:45> Additional Instructions: Take your medications as prescribed. If you were prescribed antibiotics today, it is important that you take your medication to their entirety, do not skip any doses, do not finish them early. Follow-up with your primary care provider this week. Return to the emergency department with new or worsening symptoms. Such as fevers, chills, chest pain, shortness of breath, nausea, vomiting, dizziness, headache, vision changes, lethargy, numbness and tingling In case of emergency call 911 A narcotic has been sent to your pharmacy please take this as prescribed. Do not take more than the prescribed dose. Narcotic medications can cause addict ion. Please do not mix them with alcohol. Do not take them while driving or operating machinery. Do not take them with any other narcotics. Do not share them with friends or family. They can cause constipation. Take them only for severe pain. [place] addie medicamentos seg?n lo prescrito. Si le recetaron antibi?ticos hoy, es importante que tome kessler medicamento en kessler totalidad, no se salte ninguna dosis, no los termine antes de tiempo. Seguimiento con kessler proveedor de atenci?n primaria esta semana. Regrese al departamento de emergencias con s?ntomas nuevos o que empeoran. [place] fiebre, escalofr?os, dolor de pecho, dificultad para respirar, n?useas, v?mitos, mareos, dolor de kayla, cambios en la visi?n, letargo, entumecimiento y hormigueo. En geoff de emergencia llama al 911 Se wilder enviado un narc?paul a kessler farmacia, t?stearns seg?n lo prescrito. No tome m?s de la dosis prescrita. Los medicamentos narc?ticos pueden causar adicci?n. Por favor, no los mezcle con alcohol. No los tome mientras conduce u opera maquinaria. No los tome con pio?n otro narc?paul. No los comparta con amigos o familiares. Pueden causar estre?imiento. T?melos s?lo para el dolor intenso ?XR/XR hand wrist RT IMPRESSION: Chronic periostitis at the index finger PIP joint with surrounding soft tissue swelling, possibly due to previous infection or chronic changes of a inflammatory arthropathy. Mild arthrosis at the radiocarpal joint. ? No acute osseous findings. US/US venous duplex UE RT IMPRESSION: No DVT demonstrated in the right upper extremity. ? <SAFIA Vela - Last Filed: 11/22/22 16:45> Prescriptions: New prednisone 20 mg tablet 40 mg PO DAILY 5 Days Qty: 10 0RF oxycodone 5 mg capsule 5 mg PO BID PRN (Reason: pain) Qty: 6 0RF Rx Instructions: Partial Fill upon patient request. No Action (DME) adhesive bandage 1 bandage See Rx Instructions .ROUTE .MEDSUPPLY Qty: 20 5RF Rx Instructions: Use after Methotrexate injection folic acid 1 mg tablet 1 mg PO QAM Qty: 90 1RF methotrexate sodium 2.5 mg tablet 20 mg PO QWEEK Qty: 32 2RF pantoprazole 40 mg tablet,delayed release (DR/EC) 40 mg PO DAILY Qty: 90 1RF benztropine 0.5 mg Tablet 0.5 mg PO DAILY baclofen 5 mg tablet 5 mg PO TID PRN (Reason: Muscle spasms) Qty: 10 0RF gabapentin 400 mg capsule 400 mg PO TID trazodone 150 mg tablet 1 tab PO BEDTIME PRN (Reason: Sleep) risperidone 1 mg tablet 0.5 mg PO DAILY PRN (Reason: Agitation) aspirin 81 mg capsule 81 mg PO DAILY 14 Days Qty: 14 0RF diclofenac sodium 1 % gel 4 g topical QID Qty: 100 0RF Rx Instructions: apply to single knee, ankle, foot; for foot includes sole/toes/top of foot oxycodone 5 mg tablet 5 mg PO Q8H PRN (Reason: pain) Qty: 10 0RF Rx Instructions: Partial Fill upon patient request. famotidine 20 mg tablet 1 tab PO BID@1200,2100 ferrous sulfate [FeroSul] 325 mg (65 mg iron) tablet 1 tab PO QAM albuterol sulfate [ProAir HFA] 90 mcg/actuation HFA aerosol inhaler 2 puff PO Q4-6H PRN (Reason: Wheezing) duloxetine 60 mg capsule,delayed release(DR/EC) 1 cap PO BID ursodiol 500 mg tablet 500 mg PO BID Qty: 90 1RF cyclobenzaprine 10 mg tablet 10 mg PO TID PRN (Reason: muscle spasm) Qty: 10 0RF lidocaine [Lidoderm] 5 % adhesive patch,medicated 1 patch topical DAILY Qty: 15 0RF Rx Instructions: leave on most painful area for up to 12 hrs cyclobenzaprine 5 mg tablet 5 mg PO TID PRN (Reason: muscle spasm) Qty: 10 0RF nystatin 100,000 unit/gram powder 1 appl topical BID Qty: 30 0RF oxycodone-acetaminophen 5-325 mg tablet 1 tab PO Q8H PRN (Reason: pain) docusate sodium 100 mg capsule 100 mg PO BEDTIME PRN (Reason: Constipation) alprazolam 2 mg tablet 2 mg PO BEDTIME PRN (Reason: Anxiety) Incruse Ellipta 62.5 mcg/actuation blister with device 1 inh inhalation DAILY 30 Days Qty: 1 6RF nicotine 14 mg/24 hr patch 24 hour 1 patch topical DAILY hydrochlorothiazide 12.5 mg tablet 12.5 mg PO DAILY prednisone 10 mg tablet 10 mg .ROUTE DAILY Qty: 30 3RF Rx Instructions: take with breakfast Eliquis 5 mg tablet 5 mg PO BID acetaminophen 500 mg tablet 500 - 1,000 mg PO Q8-10H PRN (Reason: pain) Qty: 100 4RF tocilizumab 162 mg/0.9 mL pen injector 162 mg subcut QWEEK Qty: 3.6 4RF Rx Instructions: note increase to once a week cyclobenzaprine 5 mg tablet 5 mg PO TID PRN (Reason: muscle spasm) Qty: 30 0RF <SAFIA Vela - Last Filed: 11/22/22 16:45> Referrals: [facility] [facility] [Provider Group] - 2 days Center,[facility] [Primary Care Provider] - 2 days <SAFIA Vela - Last Filed: 11/22/22 16:45> Stand Alone Forms: Work/School Release <SAFIA Vela - Last Filed: 11/22/22 16:45> Interventions: ED Discharge Assessment Last Done: 11/22/22 22:10 <SAFIA Vela - Last Filed: 11/22/22 16:45> Discharge Date/Time: 11/22/22 22:18 <SAFIA Vela - Last Filed: 11/22/22 16:45>
--- NOTE | 2022-11-22 16:39 | ECG_ITS ---
Test Reason : LEFT ARM PAIN EDEMA Blood Pressure : / mmHG Vent. Rate : 052 BPM Atrial Rate : 052 BPM P-R Int : 162 ms QRS Dur : 108 ms QT Int : 420 ms P-R-T Axes : 112 228 140 degrees QTc Int : 390 ms Suspect limb lead reversal, interpretation assumes no reversal Sinus bradycardia Right superior axis deviation Pulmonary disease pattern Septal infarct (cited on or before 10-NOV-2022) Abnormal ECG When compared with ECG of 10-NOV-2022 16:40, Left anterior fascicular block is no longer Present Referred By: Padmaja Calvert Electronically Signed By:Ruddy Larios
[2022-11-22 17:35] LABS: MANUAL DIFF FLAG NO
[2022-11-22 17:36] LABS: Basophils Percent Auto 0.3 % (0-2); Eosinophils Percent Auto 0.1 % (0-4); Hematocrit 34.8 % (37.0-47.0); Hemoglobin 11.7 g/dl (12.0-16.0); Imm Gran Abs Auto 0.03 X10*3/uL (0.00-0.03); Imm Gran Pct Auto 0.3 % (0.0-0.4); Lymphocytes Absolute Auto 1.1 X10*3/uL (1.2-4.9); Lymphocytes Percent Auto 11.9 % (20-40); Mean Corpuscular HGB Conc 33.6 g/dl (31.0-35.0); Mean Corpuscular Hemoglobin 32.8 pg (27.0-33.0); Mean Corpuscular Volume 97.5 fL (80.0-98.0); Mean Platelet Volume 10.4 fL (9.4-12.3); Monocytes Absolute Auto 0.3 X10*3/uL (0.1-1.2); Monocytes Percent Auto 3.5 % (2-11); Neutrophils Absolute Auto 7.4 x10*3/uL (2.0-8.3); Neutrophils Percent Auto 83.9 % (45-73); Platelet Count 247 X10*3/uL (160-400); Red Blood Count 3.57 X10*6/uL (4.20-5.50); Red Cell Distribution Width 14.6 % (11.0-16.0); White Blood Count 8.9 X10*3/uL (4.8-10.8)
[2022-11-22 17:45] LABS: INTERNATIONAL NORM RATIO 1.1 (0.9-1.1); Prothrombin Time 12.2 SEC (10.0-13.1)
[2022-11-22 18:02] LABS: B Type Natriuretic Peptide 47 pg/mL (<100)
[2022-11-22 18:23] LABS: Erythrocyte Sedimentation Rate 51 MM/HR (0-20)
[2022-11-22 19:39] LABS: Alanine Aminotransferase 11 U/L (0-31); Albumin Level 4.2 g/dL (3.5-5.0); Alkaline Phosphatase 50 U/L (39-117); Anion Gap 15 (12-20); Aspartate Amino Transferase 13 U/L (5-31); Bilirubin Direct 0.1 mg/dL (0.0-0.5); Bilirubin Total 0.3 mg/dL (0.0-1.0); Blood Urea Nitrogen 12 mg/dL (9-16); C Reactive Protein 1.55 mg/dL (< or = 0.50); Calcium 9.3 mg/dL (8.4-10.2); Carbon Dioxide 22 mmol/L (22-29); Chloride 107 mmol/L (96-108); Creatinine Clr Calc Pharmacy 94.6; Estimated Glomerular Filt Rate > 60; Glucose Random 97 mg/dL (60-115); Potassium 4.1 mmol/L (3.3-5.1); Sodium 140 mmol/L (135-145); Total Protein 7.8 g/dL (6.5-8.0)
[2022-11-22] MEDS: Acetaminophen 325 MG TABLET 650 MG PO (20:57)
[2022-11-22] MEDS: predniSONE 20 MG TABLET 40 MG PO (20:57)
[2022-11-22] MEDS: oxyCODONE HCl Immed Release 5 MG TABLET PO (21:20)
[2022-11-22 21:52] VITALS: BP 125/85; PULSE 64; RESP 20; TEMP 36.6; O2SAT 98
== END 2022-11-22 22:18 | disposition home or self-care (01) ==
PROVIDERS: Physician Assistant; Emergency Provider Emergency Medicine Emergency Medical Services
DX: M19.041 Primary osteoarthritis, right hand (principal); M79.641 Pain in right hand; R06.02 Shortness of breath; M32.9 Systemic lupus erythematosus, unspecified; C81.90 Hodgkin lymphoma, unspecified, unspecified site; M05.9 Rheumatoid arthritis with rheumatoid factor, unspecified; F12.90 Cannabis use, unspecified, uncomplicated; Z86.718 Personal history of other venous thrombosis and embolism; Z79.01 Long term (current) use of anticoagulants; Z79.899 Other long term (current) drug therapy
CPT/HCPCS: 36415; 73110; 73130; 80048; 80076; 83880; 85025; 85610; 85652; 86140; 93005; 93971; 99284

== ENCOUNTER → 2022-11-29 14:01 | Outpatient (BNVA) | payer MEDICAID, SELFPAY | PROVIDERS: PCP General Practice; Visit Provider Internal Medicine Rheumatology | DX: M05.9 Rheumatoid arthritis with rheumatoid factor, unspecified (principal); M79.7 Fibromyalgia; Z79.899 Other long term (current) drug therapy | CPT/HCPCS: 20605; 99212 ==

== ENCOUNTER 2022-12-10 10:11 | Outpatient (REF) | payer MEDICAID, SELFPAY ==
[2022-12-10 12:35] LABS: Magnesium 2.3 mg/dL (1.6-2.6)
[2022-12-10 13:03] LABS: Ferritin 147 ng/mL (10-250); Folate 14.4 ng/mL (> or = 4.0); Vitamin B12 718 pg/mL (200-900); Vitamin D 25-OH Total 14.1 ng/mL (>30)
[2022-12-15 16:19] LABS: Zinc 83 mcg/dL (60-130)
[2022-12-16 04:09] LABS: Vitamin C 0.1 mg/dL (0.3-2.7)
[2022-12-16 21:44] LABS: Vitamin K1 246 pg/mL (130-1500)
[2022-12-16 22:48] LABS: Vitamin A 30 mcg/dL (38-98)
[2022-12-17 00:33] LABS: Alpha-Tocopherol 10.4 mg/L (5.7-19.9); Beta-Gamma Tocopherol 1.6 mg/L (<=4.3)
[2022-12-17 13:39] LABS: Vitamin B1 10 nmol/L (8-30)
[2022-12-17 16:29] LABS: Vitamin B5 (Pantothenic Acid) 43 ng/mL (<275)
[2022-12-18 17:08] LABS: Nicotinamide 36 ng/mL; Vit B3 - Nicotinic Acid <20 ng/mL
[2022-12-19 15:08] LABS: Vitamin B6 5.8 ng/mL (2.1-21.7)
== END 2022-12-10 10:12 | disposition home or self-care (01) ==
LOC: HO.LAB 10:11
PROVIDERS: PCP General Practice; Visit Provider Internal Medicine Gastroenterology
DX: R13.10 Dysphagia, unspecified (principal); R10.11 Right upper quadrant pain; R19.7 Diarrhea, unspecified; E53.8 Deficiency of other specified B group vitamins
CPT/HCPCS: 36415; 82180; 82306; 82550; 82607; 82728; 82746; 83735; 84207; 84425; 84446; 84590; 84591; 84597; 84630; 99212

== ENCOUNTER 2022-12-13 12:15 | Outpatient (REF) | payer MEDICAID, SELFPAY ==
[2022-12-13 14:06] LABS: CDiff Gene PCR NEGATIVE (Negative)
[2022-12-13 14:55] LABS: Adenovirus F 40/41 Not Detected (Not Detect.); Astrovirus Not Detected (Not Detect.); Campylobacter Not Detected (Not Detect.); Cryptosporidium Not Detected (Not Detect.); Cyclospora cayetanensis Not Detected (Not Detect.); E. coli EAEC Not Detected (Not Detect.); E. coli EPEC Not Detected (Not Detect.); E. coli ETEC Not Detected (Not Detect.); E. coli STEC Not Detected (Not Detect.); Entamoeba histolytica Not Detected (Not Detect.); Giardia lamblia Not Detected (Not Detect.); Norovirus GI/GII Not Detected (Not Detect.); Plesiomonas shigelloides Not Detected (Not Detect.); Rotavirus A Not Detected (Not Detect.); Salmonella Not Detected (Not Detect.); Sapovirus Not Detected (Not Detect.); Shigella sp./EIEC Not Detected (Not Detect.); Vibrio Not Detected (Not Detect.); Vibrio Cholerae Not Detected (Not Detect.); Yersinia enterocolitica Not Detected (Not Detect.)
[2022-12-20 20:39] LABS: Pancreatic Elastase-1 >500 mcg/g
[2022-12-22 19:23] LABS: Lactoferrin, Fecal, Quant. <6.25 mcg/mL (<7.25)
[2022-12-22 20:27] LABS: Fecal Fat Qualitative NORMAL (NORMAL)
== END 2022-12-13 12:16 | disposition home or self-care (01) ==
LOC: HO.LNP 12:15
PROVIDERS: Visit Provider Internal Medicine Gastroenterology
DX: R13.10 Dysphagia, unspecified (principal); K51.50 Left sided colitis without complications; R19.7 Diarrhea, unspecified
CPT/HCPCS: 82656; 82705; 83631; 87493; 87507

== ENCOUNTER 2022-12-14 09:42 | Emergency (ER) | payer MEDICAID, SELFPAY ==
--- NOTE | ~2022-12-14 | XR_ITS ---
EXAMINATION: XR WRIST, LEFT CLINICAL INFORMATION: Pain COMPARISON: None available. TECHNIQUE: 4 views of the left wrist. FINDINGS: The bones and soft tissues are normal. No fracture. Alignment is anatomic with normal joint spaces. No erosions or abnormal soft tissue calcifications. XR/XR wrist LT 2V IMPRESSION: Normal left wrist.
[2022-12-14 09:50] VITALS: BP 125/81; PULSE 83; RESP 18; TEMP 36.6; O2SAT 97; BMI 30.9
--- NOTE | 2022-12-14 10:24 | ED_ITS ---
HPI - Extremity Problem General Chief complaint: Extremity Injury, Upper Stated complaint: L Arm Pain No Injury Time Seen by Provider: 12/14/22 10:24 Source: patient and grid maker Mode of arrival: ambulatory Limitations: language barrier History of Present Illness HPI Narrative: Patient is a 47 year old assigned female at with a history of rheumatoid arthritis presenting to the emergency department today with left wrist pain. Patient states that she has been having left sided wrist pain for a long time bu t it is much worse this morning. Patient states that she had the same kind of pain in the right wrist, saw her rheuamtologist, and was given a shot into the right wrist. Patient states that before the shot, she was given more prednisone and that helped her symptoms greatly. Patient denies any dizziness, lightheadedness, abdominal pain, nausea, vomiting, fever, chills, blurry vision, double vision, loss of vision, chest pain, difficulty breathing, shortness of breath, back pain, night sweats, pain with urination, increased urinary frequency, increased urinary urgency, blood in her urine or stool, syncope or a near syncopal episode, recent trauma or falls, bowel incontinence, bladder incontinence, bowel retention, bladder retention, or any other complaints at this time. MD Complaint: extremity pain Onset (ago): month(s) Pain Consistency: constant Location: right and upper extremity Severity scale (1-10): 4 Quality: aching and constant Radiation: none Relieving factors: nothing Exacerbating factors: range of motion Associated symptoms: denies other symptoms Related Data Home Medications Medication Instructions Recorded Confirmed albuterol sulfate 90 mcg/actuation 2 puff PO Q4-6H PRN Wheezing 10/02/21 09/22/22 aerosol inhaler (ProAir HFA) duloxetine 60 mg capsule,delayed 1 cap PO BID 10/02/21 09/22/22 release famotidine 20 mg tablet 1 tab PO BID@1200,2100 10/02/21 09/22/22 ferrous sulfate 325 mg (65 mg 1 tab PO QAM 10/02/21 09/22/22 iron) tablet (FeroSul) gabapentin 400 mg capsule 400 mg PO TID 10/22/21 09/22/22 risperidone 1 mg tablet 0.5 mg PO DAILY PRN Agitation 10/22/21 09/22/22 trazodone 150 mg tablet 1 tab PO BEDTIME PRN Sleep 10/22/21 09/22/22 nicotine 14 mg/24 hr daily 1 patch topical DAILY 03/01/22 09/22/22 transdermal patch hydrochlorothiazide 12.5 mg tablet 12.5 mg PO DAILY 03/02/22 09/22/22 docusate sodium 100 mg capsule 100 mg PO BEDTIME PRN Constipation 04/19/22 09/22/22 oxycodone-acetaminophen 5 mg-325 1 tab PO Q8H PRN pain 04/19/22 09/22/22 mg tablet apixaban 5 mg tablet (Eliquis) 5 mg PO BID 09/22/22 09/22/22 adalimumab 40 mg/0.4 mL mg subcut Q2W 12/10/22 subcutaneous pen kit (Humira(CF) Pen) alprazolam 1 mg tablet 1 mg PO BEDTIME PRN 12/10/22 hydrocortisone 2.5 % topical cream appl topical BID 12/10/22 naloxone 4 mg/actuation nasal spray 0 spray intranasal 12/10/22 nicotine 21 mg/24 hr daily 0 patch topical 12/10/22 transdermal patch tocilizumab 162 mg/0.9 mL 162 mg subcut QWEEK 12/10/22 subcutaneous pen injector Previous Rx's Medication Instructions Recorded adhesive bandage 1 #20 ea 05/21/20 ursodiol 500 mg tablet 500 mg PO BID #90 tabs 10/08/21 aspirin 81 mg capsule 81 mg PO DAILY 14 days #14 caps 02/18/22 diclofenac sodium 1 % topical gel 4 g topical QID #100 grams 03/28/22 folic acid 1 mg tablet 1 mg PO QAM #90 tabs 08/17/22 cyclobenzaprine 10 mg tablet 10 mg PO TID PRN muscle spasm #10 08/20/22 tabs lidocaine 5 % topical patch 1 patch topical DAILY #15 ea 08/20/22 (Lidoderm) methotrexate sodium 2.5 mg tablet 20 mg PO QWEEK #32 tabs 09/20/22 acetaminophen 500 mg tablet 500 - 1,000 mg PO Q8-10H PRN pain 09/22/22 #100 tabs prednisone 10 mg tablet 10 mg .Route DAILY #30 tabs 11/08/22 cyclobenzaprine 5 mg tablet 5 mg PO TID PRN muscle spasm #10 11/10/22 tabs nystatin 100,000 unit/gram topical 1 appl topical BID #30 grams 11/10/22 powder oxycodone 5 mg capsule 5 mg PO BID PRN pain #6 caps 11/22/22 umeclidinium 62.5 mcg/actuation 1 inh PO DAILY #30 ea 11/29/22 blister powder for inhalation (Incruse Ellipta) cholecalciferol (vitamin D3) 25 25 mcg PO DAILY #90 caps 12/10/22 mcg (1,000 unit) capsule pantoprazole 40 mg tablet,delayed 40 mg PO DAILY #90 tabs 12/10/22 release prednisone 10 mg tablet 10 mg PO DIRECTED #36 tabs 12/14/22 Allergies Allergy/AdvReac Type Severity Reaction Status Date / Time almond [ALMONDS] Allergy Severe ANAPHYLAXIS Verified 12/14/22 10:02 adhesive tape [ADHESIVE TAPE] Allergy Intermediate RASH Verified 12/14/22 10:02 morphine [MORPHINE] Allergy Intermediate GI UPSET, Verified 12/14/22 10:02 difficulty breathing tramadol [TRAMADOL] AdvReac Unknown NAUSEA & Verified 12/14/22 10:02 VOMITING Review of Systems Constitutional: Constitutional: Reports no additional constitutional complaints, Denies chills, Denies fever(s) and Denies night sweats Eyes: Eyes: Reports no additional eye complaints, Denies blurry vision, Denies change in vision, Denies diplopia, Denies eye discharge, Denies loss of vision and Denies eye pain ENT: Denies dizziness Cardiovascular: Cardiovascular: Reports no additional cardiovascular complaints, Denies chest pain, Denies lightheadedness, Denies Loss of Consciousness and Denies dyspnea Respiratory: Respiratory: Reports no additional respiratory complaints and Denies dyspnea Gastrointestinal: Gastrointestinal: Reports no additional gastrointestinal complaints, Denies abdominal pain, Denies melena, Denies hematochezia, Denies change in bowel habits and Denies change in stool character Genitourinary: Genitourinary: Denies hematuria, Denies urinary frequency, Denies dysuria, Denies urinary incontinence, Denies urinary hesitancy and Denies urinary urgency Musculoskeletal: Musculoskeletal: Reports no additional musculoskeletal complaints, Denies numbness and Denies tingling Comments: left wrist pain Neurologic: Denies dizziness, Denies loss of vision, Denies numbness and Denie s tingling Psychiatric: Psychiatric: Reports no additional psychiatric complaints Endocrine: Endocrine: Reports no additional endocrine complaints Hematologic/Lymphatic: Hematologic/Lymphatic: Reports no additional hematologic/lymphatic complaints Allergic/Immunologic: Allergic/Immunologic: Reports no additional allergic/immunologic complaints FOR[facility]LY [facility] Past Medical History Attestation statement: The following information was validated with the patient. Source: old records reviewed and nursing notes reviewed Medical History Acute arthritis Bleeding hemorrhoid Bone cancer Cancer of heart Chronic GERD De Quervain's disease (tenosynovitis) Degeneration of intervertebral disc at C4-C5 level Degeneration, intervertebral disc, lumbar Depressive disorder Esophageal dysphagia Fibromyalgia Gallstones History of chemotherapy History of chemotherapy Hodgkin disease Hx of peripheral pulmonary artery stenosis Lung cancer Nocturia Osteoarthritis of spine with radiculopathy, lumbar region Rheumatoid arthritis involving multiple sites Seropositive rheumatoid arthritis Stress incontinence in female Systemic lupus erythematosus Urgency-frequency syndrome Vitamin D deficiency Surgical History H/O tubal ligation History of angioplasty of vein History of biopsy History of esophagogastroduodenoscopy (EGD) History of lymph node dissection of left axilla History of repair of inguinal hernia Hx laparoscopic cholecystectomy Hx of colonoscopy Hx of endoscopy Family History Family History Maternal Grandmother Ovarian cancer Social History Social History Household Members: Spouse Housing: Apartment Are you a primary disabilities caregiver to a significant other at home: No Do 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 have 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 or other home services: 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) Alcohol intake: never Patient Tobacco Use Status: Never used Tobacco Tobacco use type: Cigarette Smoked in Last 30 Days: No Use of substances other than those prescribed or required for medical reasons: Yes Substance Use Type: Marijuana Substance Use Frequency: Occasionally Advance Directives: No Advance Directives Information Provided: Yes Advance Directives Date on File: 09/23/20 Patient : No service: No Current occupational status: disabled 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 Physical Exam Vital Signs: Vital Signs: Last Vital Signs Temp 97.8 F 12/14/22 09:50 Pulse 83 12/14/22 09:50 Resp 18 12/14/22 09:50 BP 125/81 12/14/22 09:50 Pulse Ox 97 12/14/22 09:50 O2 Del Method Room Air 12/14/22 09:50 BMI result Body Mass Index 30.9 Const: General: cooperative, no acute distress, alert and awake Nutritional Appearance: well nourished Orientation/consciousness: patient oriented x3 Limitations: no limitations HEENT: Head: Yes normal to inspection and Yes atraumatic Ears: hearing grossly normal bilaterally and external ears normal General nose exam: Normal external nose present, no nasal discharge noted and no epistaxis Face and sinus: Yes normal facial exam, No abrasion and No laceration Mouth: Normal oral and palatal mucosa present, no drooling and no muffled voice Eyes: General: appearance normal, both eyes and all related structures Periorbital: periorbital findings normal Eyelids: Yes eyelids normal Conjunctivae: conjunctivae normal Pupils: Equal, round and reactive pupils present EOM: EOMs intact bilaterally Neck: Neck: Yes normal visual inspection, Yes full ROM and Yes no lymphadenopathy Chest: Chest palpation & inspection: normal inspection of the chest Resp: Effort & Inspection: normal respiratory effort and able to speak in complete sentences GI: Inspection: Yes normal to inspection Neuro: General: patient oriented x3 and moves all extremities Cranial nerves: Yes Equal, round and reactive pupils present Cognition (Neuro): normal cognition Motor exam (neuro): 5/5 motor strength present throughout Sensory Exam: Normal double simultaneous stimulation for sensation Coordination: [id number] test normal Extrem: Other: pain with ROM of the left wrist General: Yes normal to inspection and Yes capillary refill normal Psych: Appearance: grossly normal Mental Status: mental status grossly normal Affect: normal affect Attitude: cooperative Thought process: Normal thought process present Thought content: Normal thought content present Insight: Good insight present (Psych) Medications Administered Discontinued Medications Generic Name Dose Route Start Last Admin Trade Name Freq PRN Reason Stop Dose Admin Oxycodone HCl 10 mg 12/14/22 10:50 12/14/22 10:53 Oxycodone Hcl Immed Release 5 Mg Tablet PO 12/14/22 10:51 10 mg ONCE ONE Administration Medical Decision Making Medical Decision Making [facility] Narrative: Patient is a 47 year old assigned female at with a history of rheumatoid arthritis presenting to the emergency department today with left wrist pain. Patient's physical exam showed pain with ROM of the left wrist but was otherwise unremarkable, no warmth or erythema of the left wrist. Patient's blood work showed an elevated ESR of 71 and CRP of 0.83. These values appear to be chronically elevated in the patient. Patient's left wrist x-ray showed no acute process. I spoke to the rheumatology team who recommended increasing the patient's prednisone to 40mg x 4 days, 30mg x4 days, 20mg x4 days, and then having the patient resume her 10mg per day normal dose. They also recommended the patient follow up in the office for evaluation and a possible localized steroid injection. I explained my physical exam findings as well as all test results to the patient. I answered all questions asked by the patient. I stressed the importance of the patient taking her medication as prescribed. 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 I stressed the importance of the patient returning to the emergency department immediately if [her symptoms were to worsen or if she were to develop any dizziness, shortness of breath, difficulty breathing, chest pain, blurry vision, loss of vision, nausea, vomiting, abdominal pain, fever, chills, back pain, or any other complaints. Patient verbalized agreement and understanding with this treatment plan and discharge. 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 12/14/22 11:17 12/14/22 11:17 Labs: Lab Results 12/14/22 12/14/22 12/14/22 Range/Units 11:17 11:17 11:17 WBC 4.6 L (4.8-10.8) X10*3/uL RBC 3.99 L (4.20-5.50) X10*6/uL Hgb 12.6 (12.0-16.0) g/dl Hct 38.5 (37.0-47.0) % MCV 96.5 (80.0-98.0) fL MCH 31.6 (27.0-33.0) pg MCHC 32.7 (31.0-35.0) g/dl RDW 13.2 (11.0-16.0) % Plt Count 272 (160-400) X10*3/uL MPV 9.5 (9.4-12.3) fL Immature Gran % (Auto) 0.2 (0.0-0.4) % Neut % (Auto) 52.9 (45-73) % Lymph % (Auto) 39.3 (20-40) % [place] % (Auto) 5.9 (2-11) % Eos % (Auto) 1.5 (0-4) % Baso % (Auto) 0.2 (0-2) % Lymph # (Auto) 1.8 (1.2-4.9) X10*3/uL [place] # (Auto) 0.3 (0.1-1.2) X10*3/uL Eos # (Auto) 0.1 (0.0-0.4) X10*3/uL Baso # (Auto) 0.0 (0.0-0.2) X10*3/uL Abs Immat Gran (auto) 0.01 (0.00-0.03) X10*3/uL Absolute Neuts (auto) 2.4 (2.0-8.3) x10*3/uL Absolute Nucleated RBC 0.000 (0.0-0.012) X10*3/uL Nucleated RBC % (auto) 0.0 (0.0-0.2) /100WBC ESR 71 H (0-20) MM/HR Sodium 139 (135-145) mmol/L Potassium 4.2 (3.3-5.1) mmol/L Chloride 105 (96-108) mmol/L Carbon Dioxide 26 (22-29) mmol/L Anion Gap 12 (12-20) BUN 10 (9-16) mg/dL Creatinine 0.86 (0.5-1.4) mg/dL Estim Creat Clear Calc 84.5 Estimated GFR > 60 Random Glucose 92 (60-115) mg/dL Calcium 9.6 (8.4-10.2) mg/dL Magnesium 2.4 (1.6-2.6) mg/dL Total Bilirubin 0.5 (0.0-1.0) mg/dL AST 15 (5-31) U/L ALT 12 (0-31) U/L Alkaline Phosphatase 61 (39-117) U/L C-Reactive Protein 0.83 H (< or = 0.50) mg/dL Total Protein 8.5 H (6.5-8.0) g/dL Albumin 4.3 (3.5-5.0) g/dL Independent Interpretation I performed an independent interpretation of an: Plain X-Ray Interpretation: My interpretation is in agreement with the radiologist's impression of this imaging study. EXAMINATION: XR WRIST, LEFT CLINICAL INFORMATION: Pain? COMPARISON: None available.? TECHNIQUE: 4 views of the left wrist. FINDINGS: The bones and soft tissues are normal. No fracture. Alignment is anatomic with normal joint spaces. No erosions or abnormal soft tissue calcifications.? XR/XR wrist LT 2V IMPRESSION: Normal left wrist. ? 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 Return to the emergency department immediately if your symptoms worsen or if you develop any dizziness, shortness of breath, difficulty breathing, chest pain, blurry vision, loss of vision, nausea, vomiting, abdominal pain, fever, chills, back pain, or any other complaints. Rupali un seguimiento con kessler proveedor de atenci?n primaria y kessler reumat?logo. Regrese a la lianna de emergencias de inmediato si addie s?ntomas empeoran o si presenta mareos, dificultad para respirar, dolor de pecho, visi?n borrosa, p?rdida de la visi?n, n?useas, v?mitos, dolor abdominal, fiebre, escalofr?os, dolor de espalda o cualquier otras quejas. Prescriptions: New prednisone 10 mg tablet 10 mg PO DIRECTED Qty: 36 0RF Rx Instructions: Take 4 tablets for 4 days THEN; Take 3 tablets for 4 days THEN; Take 2 tablets for 4 days THEN; Return to 1 tablets per day No Action (DME) adhesive bandage 1 bandage See Rx Instructions .ROUTE .MEDSUPPLY Qty: 20 5RF Rx Instructions: Use after Methotrexate injection folic acid 1 mg tablet 1 mg PO QAM Qty: 90 1RF methotrexate sodium 2.5 mg tablet 20 mg PO QWEEK Qty: 32 2RF Incruse Ellipta 62.5 mcg/actuation blister with device 1 inh PO DAILY Qty: 30 6RF cholecalciferol (vitamin D3) 25 mcg (1,000 unit) capsule 25 mcg PO DAILY Qty: 90 2RF gabapentin 400 mg capsule 400 mg PO TID trazodone 150 mg tablet 1 tab PO BEDTIME PRN (Reason: Sleep) risperidone 1 mg tablet 0.5 mg PO DAILY PRN (Reason: Agitation) aspirin 81 mg capsule 81 mg PO DAILY 14 Days Qty: 14 0RF diclofenac sodium 1 % gel 4 g topical QID Qty: 100 0RF Rx Instructions: apply to single knee, ankle, foot; for foot includes sole/toes/top of foot famotidine 20 mg tablet 1 tab PO BID@1200,2100 ferrous sulfate [FeroSul] 325 mg (65 mg iron) tablet 1 tab PO QAM albuterol sulfate [ProAir HFA] 90 mcg/actuation HFA aerosol inhaler 2 puff PO Q4-6H PRN (Reason: Wheezing) duloxetine 60 mg capsule,delayed release(DR/EC) 1 cap PO BID ursodiol 500 mg tablet 500 mg PO BID Qty: 90 1RF cyclobenzaprine 10 mg tablet 10 mg PO TID PRN (Reason: muscle spasm) Qty: 10 0RF lidocaine [Lidoderm] 5 % adhesive patch,medicated 1 patch topical DAILY Qty: 15 0RF Rx Instructions: leave on most painful area for up to 12 hrs cyclobenzaprine 5 mg tablet 5 mg PO TID PRN (Reason: muscle spasm) Qty: 10 0RF nystatin 100,000 unit/gram powder 1 appl topical BID Qty: 30 0RF oxycodone 5 mg capsule 5 mg PO BID PRN (Reason: pain) Qty: 6 0RF Rx Instructions: Partial Fill upon patient request. oxycodone-acetaminophen 5-325 mg tablet 1 tab PO Q8H PRN (Reason: pain) docusate sodium 100 mg capsule 100 mg PO BEDTIME PRN (Reason: Constipation) nicotine 14 mg/24 hr patch 24 hour 1 patch topical DAILY hydrochlorothiazide 12.5 mg tablet 12.5 mg PO DAILY hydrocortisone 2.5 % cream topical BID alprazolam 1 mg tablet 1 mg PO BEDTIME PRN naloxone 4 mg/actuation spray,non-aerosol 0 spray intranasal nicotine 21 mg/24 hr patch 24 hour 0 patch topical tocilizumab 162 mg/0.9 mL pen injector 162 mg subcut QWEEK Rx Instructions: note increase to once a week Humira(CF) Pen 40 mg/0.4 mL pen injector kit subcut Q2W pantoprazole 40 mg tablet,delayed release (DR/EC) 40 mg PO DAILY Qty: 90 1RF prednisone 10 mg tablet 10 mg .ROUTE DAILY Qty: 30 3RF Rx Instructions: take with breakfast Eliquis 5 mg tablet 5 mg PO BID acetaminophen 500 mg tablet 500 - 1,000 mg PO Q8-10H PRN (Reason: pain) Qty: 100 4RF Referrals: [facility] [place] [facility] [Provider Group] Mackenzie Estrada MD [Primary Care Provider] - Interventions: ED Discharge Assessment Last Done: 12/14/22 12:37 Discharge Date/Time: 12/14/22 12:38 Print Language: Indonesian
[2022-12-14] MEDS: oxyCODONE HCl Immed Release 5 MG TABLET 10 MG PO (10:53)
--- NOTE | 2022-12-14 11:04 | PC.NURSE ---
patient a&ox3, c/o 8-04/10 left wrist/hand pain, + csm/pulses to extremity, pt states it hurts too much to move her fingers when asked, pt medicated with po pain meds, tech to draw labs, call cardona within reach, will continue to monitor.
--- NOTE | 2022-12-14 11:20 | PC.NURSE ---
labs drawn by tech
[2022-12-14 11:22] LABS: MANUAL DIFF FLAG NO
[2022-12-14 11:27] LABS: Basophils Percent Auto 0.2 % (0-2); Eosinophils Absolute Auto 0.1 X10*3/uL (0.0-0.4); Eosinophils Percent Auto 1.5 % (0-4); Hematocrit 38.5 % (37.0-47.0); Hemoglobin 12.6 g/dl (12.0-16.0); Imm Gran Abs Auto 0.01 X10*3/uL (0.00-0.03); Imm Gran Pct Auto 0.2 % (0.0-0.4); Lymphocytes Absolute Auto 1.8 X10*3/uL (1.2-4.9); Lymphocytes Percent Auto 39.3 % (20-40); Mean Corpuscular HGB Conc 32.7 g/dl (31.0-35.0); Mean Corpuscular Hemoglobin 31.6 pg (27.0-33.0); Mean Corpuscular Volume 96.5 fL (80.0-98.0); Mean Platelet Volume 9.5 fL (9.4-12.3); Monocytes Absolute Auto 0.3 X10*3/uL (0.1-1.2); Monocytes Percent Auto 5.9 % (2-11); Neutrophils Absolute Auto 2.4 x10*3/uL (2.0-8.3); Neutrophils Percent Auto 52.9 % (45-73); Platelet Count 272 X10*3/uL (160-400); Red Blood Count 3.99 X10*6/uL (4.20-5.50); Red Cell Distribution Width 13.2 % (11.0-16.0); White Blood Count 4.6 X10*3/uL (4.8-10.8)
[2022-12-14 11:46] LABS: Alanine Aminotransferase 12 U/L (0-31); Albumin Level 4.3 g/dL (3.5-5.0); Alkaline Phosphatase 61 U/L (39-117); Anion Gap 12 (12-20); Aspartate Amino Transferase 15 U/L (5-31); Bilirubin Total 0.5 mg/dL (0.0-1.0); Blood Urea Nitrogen 10 mg/dL (9-16); C Reactive Protein 0.83 mg/dL (< or = 0.50); Calcium 9.6 mg/dL (8.4-10.2); Carbon Dioxide 26 mmol/L (22-29); Chloride 105 mmol/L (96-108); Creatinine Clr Calc Pharmacy 84.5; Estimated Glomerular Filt Rate > 60; Glucose Random 92 mg/dL (60-115); Magnesium 2.4 mg/dL (1.6-2.6); Potassium 4.2 mmol/L (3.3-5.1); Sodium 139 mmol/L (135-145); Total Protein 8.5 g/dL (6.5-8.0)
[2022-12-14 12:08] LABS: Erythrocyte Sedimentation Rate 71 MM/HR (0-20)
== END 2022-12-14 12:38 | disposition home or self-care (01) ==
PROVIDERS: Physician Assistant Medical; Emergency Provider Student in an Organized Health Care Education/Training Program; PCP General Practice
DX: M05.9 Rheumatoid arthritis with rheumatoid factor, unspecified (principal); M25.532 Pain in left wrist; Z79.899 Other long term (current) drug therapy
CPT/HCPCS: 36415; 73100; 80053; 83735; 85025; 85652; 86140; 99283

== ENCOUNTER 2022-12-21 06:05 | Day surgery (SDC) | payer MEDICAID, SELFPAY ==
[2022-12-17 12:09] VITALS: BMI 29.0
--- NOTE | 2022-12-17 13:40 | HO.ANESPROP2 ---
Documented by User: Taniya Briceno NP 12/17/22 13:58 HPI - Anesthesia Eval Consult details Narrative: 47yo F for [place] End[place] [facility] [place] with wrist pain/RA flare up. Started on prednison taper. Feeling better at time of telephone eval 12/17/22. Follows cardiology, Dr Houston, for chest pain. Last seen 12/2021 - no chest pain at that time. No CP/SOB/edema at time of preop telephone eval. 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) Deep vein thrombosis, upper right extremity (Acute) Fibromyalgia (Acute) Iron deficiency (Acute) Carpal tunnel syndrome of right wrist (Acute) Deep vein thrombophlebitis of right leg (Acute) Emphysema lung (Acute) HARINI (obstructive sleep apnea) (Acute) PAD (peripheral artery disease) (Acute) Hodgkin disease (Chronic) Past Medical History Medical History Acute arthritis Bleeding hemorrhoid Bone cancer Cancer of heart Chronic GERD De Quervain's disease (tenosynovitis) Degeneration of intervertebral disc at C4-C5 level Degeneration, intervertebral disc, lumbar Depressive disorder Esophageal dysphagia Fibromyalgia Gallstones History of chemotherapy Hodgkin disease Hx of peripheral pulmonary artery stenosis Lung cancer Nocturia Osteoarthritis of spine with radiculopathy, lumbar region Rheumatoid arthritis involving multiple sites Seropositive rheumatoid arthritis Stress incontinence in female Systemic lupus erythematosus Urgency-frequency syndrome Vitamin D deficiency Family History Family History Maternal Grandmother Ovarian cancer Surgical History Surgical History H/O tubal ligation History of angioplasty of vein History of biopsy History of esophagogastroduodenoscopy (EGD) History of lymph node dissection of left axilla History of repair of inguinal hernia Hx laparoscopic cholecystectomy Hx of colonoscopy Hx of endoscopy History of Problems with Anesthesia: No Social History Social History Household Members: Spouse Housing: Apartment Are you a primary client care consultant to a significant other at home: No Do 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 have 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 or other home services: Yes (mold chipper) Alcohol intake: never Patient Tobacco Use Status: Never used Tobacco Tobacco use type: Cigarette Substance Use Type: Marijuana Advance Directives: No Advance Directives Information Provided: Yes Advance Directives Date on File: 09/23/20 Poor oral hygiene: No service: No Current occupational status: disabled 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 Meds Allergies Allergy/AdvReac Type Severity Reaction Status Date / Time almond [ALMONDS] Allergy Severe ANAPHYLAXIS Verified 12/14/22 10:02 adhesive tape [ADHESIVE TAPE] Allergy Intermediate RASH Verified 12/14/22 10:02 morphine [MORPHINE] Allergy Intermediate GI UPSET, Verified 12/14/22 10:02 difficulty breathing tramadol [TRAMADOL] AdvReac Unknown NAUSEA & Verified 12/14/22 10:02 VOMITING Home Medications Medication Instructions Recorded Confirmed Last Taken Type albuterol sulfate 90 mcg/actuation 2 puff PO Q4-6H PRN Wheezing 10/02/21 12/17/22 Unknown History aerosol inhaler (ProAir HFA) duloxetine 60 mg capsule,delayed 1 cap PO BID 10/02/21 12/17/22 Unknown History release famotidine 20 mg tablet 1 tab PO BID@1200,2100 10/02/21 12/17/22 Unknown History ferrous sulfate 325 mg (65 mg 1 tab PO QAM 10/02/21 12/17/22 12/16/22 History iron) tablet (FeroSul) gabapentin 400 mg capsule 400 mg PO TID 10/22/21 12/17/22 Unknown History risperidone 1 mg tablet 0.5 mg PO DAILY PRN Agitation 10/22/21 12/17/22 Unknown History trazodone 150 mg tablet 1 tab PO BEDTIME PRN Sleep 10/22/21 12/17/22 Unknown History hydrochlorothiazide 12.5 mg tablet 12.5 mg PO DAILY 03/02/22 12/17/22 Unknown History docusate sodium 100 mg capsule 100 mg PO BEDTIME PRN Constipation 04/19/22 12/17/22 Unknown History oxycodone-acetaminophen 5 mg-325 1 tab PO Q8H PRN pain 04/19/22 12/17/22 Unknown History mg tablet apixaban 5 mg tablet (Eliquis) 5 mg PO BID 09/22/22 12/17/22 12/16/22 History adalimumab 40 mg/0.4 mL mg subcut Q2W 12/10/22 Unknown History subcutaneous pen kit (Humira(CF) Pen) alprazolam 1 mg tablet 1 mg PO BEDTIME PRN Anxiety 12/10/22 12/17/22 Unknown History hydrocortisone 2.5 % topical cream appl topical BID 12/10/22 Unknown History naloxone 4 mg/actuation nasal spray 0 spray intranasal PRN Opiate 12/10/22 Unknown History Reversal nicotine 21 mg/24 hr daily 0 patch topical 12/10/22 Unknown History transdermal patch tocilizumab 162 mg/0.9 mL 162 mg subcut QWEEK 12/10/22 12/17/22 Unknown History subcutaneous pen injector Exam Exam Date and Time: December 17, 2022 1340 Height,Weight and Vital Signs: Height 5 ft 6 in Weight 81.647 kg Pertinent Lab Results Pertinent Lab Results: Laboratory Tests 12/14/22 12/14/22 11:17 11:17 WBC 4.6 L Hgb 12.6 Hct 38.5 Plt Count 272 Sodium 139 Potassium 4.2 Chloride 105 Carbon Dioxide 26 BUN 10 Creatinine 0.86 Narrative Narrative: EKG 10/2022 Vent. Rate : 052 BPM ? ? Atrial Rate : 052 BPM ?? P-R Int : 162 ms? QRS Dur : 108 ms ? ? QT Int : 420 ms ? ? ? P-R-T Axes : 112 228 140 degrees ?? QTc Int : 390 ms ? Suspect limb lead reversal, interpretation assumes no reversal Sinus bradycardia Right superior axis deviation Pulmonary disease pattern Septal infarct (cited on or before 10-NOV-2022) Abnormal ECG When compared with ECG of 10-NOV-2022 16:40, Left anterior fascicular block is no longer Present ECHO 12/2021 1. Normal LV function 2. Overall LV systolic function is normal with EF 60-65% 3. Diastolic filling pattern is normal 4. Mild thickening of anterior mitral valve leaflet 5. Mild thickening of the posterior mitral valve leaflet 6. C/W findings of the prior report 2020, no change Assessment and Plan Assessment Anesthesia Assessment: Chart Reviewed Final Anesthetic Review History of Problems with Anesthesia: No Documented by User: Lorenzo Jarrett MD 12/21/22 07:39 PMFSH Past Medical History Medical History Acute arthritis Bleeding hemorrhoid Bone cancer Cancer of heart Chronic GERD De Quervain's disease (tenosynovitis) Degeneration of intervertebral disc at C4-C5 level Degeneration, intervertebral disc, lumbar Depressive disorder Esophageal dysphagia Fibromyalgia Gallstones History of chemotherapy Hodgkin disease Hx of peripheral pulmonary artery stenosis Lung cancer Nocturia Osteoarthritis of spine with radiculopathy, lumbar region Rheumatoid arthritis involving multiple sites Seropositive rheumatoid arthritis Stress incontinence in female Systemic lupus erythematosus Urgency-frequency syndrome Vitamin D deficiency Family History Family History Maternal Grandmother Ovarian cancer Family history of problems with anesthesia: No Surgical History Surgical History H/O tubal ligation History of angioplasty of vein History of biopsy History of esophagogastroduodenoscopy (EGD) History of lymph node dissection of left axilla History of repair of inguinal hernia Hx laparoscopic cholecystectomy Hx of colonoscopy Hx of endoscopy Social History Social History Household Members: Spouse Housing: Apartment Are you a primary client care consultant to a significant other at home: No Do 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 have 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 or other home services: Yes (mold chipper) Alcohol intake: never Patient Tobacco Use Status: Never used Tobacco Tobacco use type: Cigarette Substance Use Type: Marijuana Advance Directives: No Advance Directives Information Provided: Yes Advance Directives Date on File: 09/23/20 Poor oral hygiene: No service: No Current occupational status: disabled 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 Meds Allergies Allergy/AdvReac Type Severity Reaction Status Date / Time almond [ALMONDS] Allergy Severe ANAPHYLAXIS Verified 12/14/22 10:02 adhesive tape [ADHESIVE TAPE] Allergy Intermediate RASH Verified 12/14/22 10:02 morphine [MORPHINE] Allergy Intermediate GI UPSET, Verified 12/14/22 10:02 difficulty breathing tramadol [TRAMADOL] AdvReac Unknown NAUSEA & Verified 12/14/22 10:02 VOMITING Home Medications Medication Instructions Recorded Confirmed Last Taken Type albuterol sulfate 90 mcg/actuation 2 puff PO Q4-6H PRN Wheezing 10/02/21 12/17/22 Unknown History aerosol inhaler (ProAir HFA) duloxetine 60 mg capsule,delayed 1 cap PO BID 10/02/21 12/17/22 Unknown History release famotidine 20 mg tablet 1 tab PO BID@1200,2100 10/02/21 12/17/22 Unknown History ferrous sulfate 325 mg (65 mg 1 tab PO QAM 10/02/21 12/17/22 12/16/22 History iron) tablet (FeroSul) gabapentin 400 mg capsule 400 mg PO TID 10/22/21 12/17/22 Unknown History risperidone 1 mg tablet 0.5 mg PO DAILY PRN Agitation 10/22/21 12/17/22 Unknown History trazodone 150 mg tablet 1 tab PO BEDTIME PRN Sleep 10/22/21 12/17/22 Unknown History hydrochlorothiazide 12.5 mg tablet 12.5 mg PO DAILY 03/02/22 12/17/22 Unknown History docusate sodium 100 mg capsule 100 mg PO BEDTIME PRN Constipation 04/19/22 12/17/22 Unknown History oxycodone-acetaminophen 5 mg-325 1 tab PO Q8H PRN pain 04/19/22 12/17/22 Unknown History mg tablet apixaban 5 mg tablet (Eliquis) 5 mg PO BID 09/22/22 12/17/22 12/16/22 History adalimumab 40 mg/0.4 mL mg subcut Q2W 12/10/22 Unknown History subcutaneous pen kit (Humira(CF) Pen) alprazolam 1 mg tablet 1 mg PO BEDTIME PRN Anxiety 12/10/22 12/17/22 Unknown History hydrocortisone 2.5 % topical cream appl topical BID 12/10/22 Unknown History naloxone 4 mg/actuation nasal spray 0 spray intranasal PRN Opiate 12/10/22 Unknown History Reversal nicotine 21 mg/24 hr daily 0 patch topical 12/10/22 Unknown History transdermal patch tocilizumab 162 mg/0.9 mL 162 mg subcut QWEEK 12/10/22 12/17/22 Unknown History subcutaneous pen injector Exam Airway Mallampati Class: III TM Dist: >3cm Neck ROM: Full Loose/Missing/Broken Teeth: Yes (missing upper, upper front loose, many loose and poor dentition globally) Heart: [id number] Lungs: mild wheezing Assessment and Plan Assessment Anesthesia Assessment: Anesthesia Plan Discussed Final Anesthetic Review Family History of Problems with Anesthesia: No NPO: Yes ASA Class: III Final Preanesthetic Review: No Changes in Pt Med Stat, Meds/Allgs Chart Reviewed, Consent Obtained/Reviewed and Anes Risks/Benef Reviewed Patient Risk: Intermediate Procedure Risk: Intermediate Assessment/Block/Sedation in SS: Assess/Block/Sedation-SS Anesthetic Plan Anesthetic Plan: MAC: and Agree w/ Assess. and Plan Disposition: Standard PACU
[2022-12-21 06:19] VITALS: BP 120/73; PULSE 60; RESP 20; TEMP 36.8; O2SAT 97
--- NOTE | 2022-12-21 06:33 | MHC.SHP ---
Pre-Procedural Eval Section A Date of Service: 12/21/22 The patient is an INPATIENT: No The History & Physical has been completed within 30 days and I have reviewed it.: Yes Section B Chief Complaint: Dysphagia,Right quadrant pain, Allergies: Allergies Allergy/AdvReac Type Severity Reaction Status Date / Time almond [ALMONDS] Allergy Severe ANAPHYLAXIS Verified 12/14/22 10:02 adhesive tape [ADHESIVE TAPE] Allergy Intermediate RASH Verified 12/14/22 10:02 morphine [MORPHINE] Allergy Intermediate GI UPSET, Verified 12/14/22 10:02 difficulty breathing tramadol [TRAMADOL] AdvReac Unknown NAUSEA & Verified 12/14/22 10:02 VOMITING Plan Diagnosis/Plan: Unchanged I have reviewed the history and physical and performed a pertinent physical examination on my patient. No changes have occurred unless specified. Time Spent With Patient Time: Total time managing care of this patient today ____ minutes.
[2022-12-21] MEDS: Lactated Ringers 1,000 ML 100 ML IVCONT (06:58)
[2022-12-21 07:10] VITALS: PULSE 58; RESP 16; O2SAT 98
[2022-12-21] MEDS: Albuterol Sulfate (0.083%) 2.5 MG/3 ML VIAL.NEB INHALE (07:10)
--- NOTE | 2022-12-21 07:48 | PC.NURSE ---
pt stated no interpetor needed
--- NOTE | 2022-12-21 08:06 | W.PM.OPN ---
Operative Note Operative Note Date of Service: 12/21/22 Narrative: Procedure Description: EGD Indication: dysphagia Anesthesia: MAC FLEXIBLE TRANSORAL UPPER GASTROINTESTINAL ENDOSCOPY UPPER ENDOSCOPY Consent: Indications for the procedure and potential complications of bleeding, perforation, reaction to medications and missed diagnosis were discussed with the patient and informed consent was obtained. Instrument: Olympus GIF H 190 J mid size upper endoscope Monitoring: Vital signs and clinical assessment, continuous EKG monitoring, Pulse oximetry, Carbon Dioxide monitoring and blood pressure monitoring were done throughout the procedure. Procedure: The patient was placed in the left lateral decubitis position and pre-procedure medications were administered and a bite block was placed. The endoscope was inserted into the mouth and advanced under direct vision to the third part of duodenum. A careful inspection was made as the upper endoscope was withdrawn including a retroflexed examination of the proximal stomach; Findings and interventions are described below. Findings: Larynx:normal Esophagus: GE junction at 38 cm, diaphragm hiatus at 38 cm, mild esophagitis at GEJ, bx taken aslo from distal and proximal esophagus--dilation at LES to 19 mm with resistance felt and at UES to 18 mm. Prior to dilation there was resistance felt at the GEJ Stomach: Patchy gastric erythema. Biopsies were obtained. Grade 2 flap valve on retroflexed examination of the cardia. Duodenum: Normal bulb and descending duodenum, bx taken Intervention: Biopsies as noted above, balloon dilation Impression/Findings: tight LES esophagitis gastritis PLAN: ensure compliance with PPI if ongoing sx then manometry to r/o achalasia
[2022-12-21 08:11] VITALS: BP 95/51; PULSE 65; RESP 16; TEMP 36.4; O2SAT 98
[2022-12-21 08:26] VITALS: BP 130/69; PULSE 58; RESP 18; TEMP 36.6; O2SAT 98
[2022-12-21] MEDS: Throat Lozenge, Medicated LOZENGE 1 LOZENGE MUCOUS MEM (08:45)
== END 2022-12-21 09:24 | disposition home or self-care (01) ==
PROVIDERS: PCP General Practice; Visit Provider Internal Medicine Gastroenterology
PROC: 0DJ08ZZ Inspection of Upper Intestinal Tract, Via Natural or Artificial Opening Endoscopic (ICD-10-PCS; CPT 43235; principal; 2022-12-21 07:30)
DX: R13.10 Dysphagia, unspecified (principal); K22.4 Dyskinesia of esophagus; R10.11 Right upper quadrant pain; K20.80 Other esophagitis without bleeding; K44.9 Diaphragmatic hernia without obstruction or gangrene; L23.1 Allergic contact dermatitis due to adhesives; M32.9 Systemic lupus erythematosus, unspecified; M05.9 Rheumatoid arthritis with rheumatoid factor, unspecified; M79.7 Fibromyalgia; E55.9 Vitamin D deficiency, unspecified; E53.8 Deficiency of other specified B group vitamins; G47.33 Obstructive sleep apnea (adult) (pediatric); C81.90 Hodgkin lymphoma, unspecified, unspecified site; J43.9 Emphysema, unspecified; Z79.01 Long term (current) use of anticoagulants; Z79.899 Other long term (current) drug therapy; F11.20 Opioid dependence, uncomplicated; Z88.8 Allergy status to other drugs, medicaments and biological substances; Z86.718 Personal history of other venous thrombosis and embolism; F17.210 Nicotine dependence, cigarettes, uncomplicated; F12.90 Cannabis use, unspecified, uncomplicated
CPT/HCPCS: 43249; 43239; 88305; 88342; 94640; C1726

== ENCOUNTER 2023-01-10 07:52 | Outpatient (REF) | payer MEDICAID, SELFPAY ==
--- NOTE | ~2023-01-10 | US_ITS ---
EXAMINATION: US ABDOMEN COMPLETE CLINICAL INFORMATION: Right upper quadrant pain, nausea. COMPARISON: CTA abdomen, pelvis and lower extremity run-off with contrast 03/09/2022. Ultrasound abdomen complete 10/29/2021. Ultrasound retroperitoneal limited (renal only) 03/24/2021. X-ray abdomen KUB 12/07/2019. TECHNIQUE: Real-time imaging of the abdominal viscera. FINDINGS: PANCREAS: Normal. ABDOMINAL AORTA: Aorta appears normal although the distal portion is obscured by bowel gas. INFERIOR VENA CAVA: Visualized portions are normal. LIVER: The liver is normal in size. The liver contour is normal. There is mildly increased liver parenchymal echogenicity suggesting hepatic steatosis. No focal hepatic lesion. There is no intrahepatic biliary duct dilatation seen. GALLBLADDER: Surgically absent. COMMON BILE DUCT: Normal in caliber measuring 0.6 cm in diameter. RIGHT KIDNEY: Normal. No hydronephrosis. No renal calculi or focal parenchymal lesions. The kidney measures 12.0 cm in maximum dimension. LEFT KIDNEY: A benign 1 cm lower pole cyst is present. No hydronephrosis or renal calculi. The kidney measures 11.3 cm in maximum dimension. SPLEEN: Normal. The spleen measures 8.5 cm in maximum dimension. FREE FLUID: None. US/US abdomen complete IMPRESSION: 1. A cause for the patient's abdominal pain has not been found. 2. Incidentally noted probable hepatic steatosis and benign left renal cyst which needs no additional imaging or followup.
== END 2023-01-10 07:53 | disposition home or self-care (01) ==
LOC: HO.US 07:52
PROVIDERS: PCP General Practice; Visit Provider Internal Medicine Gastroenterology
DX: R10.11 Right upper quadrant pain (principal); R13.10 Dysphagia, unspecified; R19.7 Diarrhea, unspecified
CPT/HCPCS: 76700

== ENCOUNTER 2023-01-10 09:58 | Emergency (ER) | payer MEDICAID, SELFPAY ==
--- NOTE | 2023-01-10 10:04 | ED.GENADULT ---
HPI - General Adult General Chief complaint: Extremity Problem Stated complaint: L toe pain sent by [facility] Time Seen by Provider: 01/10/23 10:04 Source: patient Mode of arrival: ambulatory Limitations: no limitations History of Present Illness HPI narrative: 47-year-old female history of Hodgkin's disease, peripheral artery disease, HARINI, emphysema, RA, DVT anticoagulated on apixaban presenting to the emergency department requesting that her left great toenail be removed, patient reports she was getting an ultrasound earlier today with her PCP, they noted that her left nail was wiggly however still attached and PCP recommended for her to come to the emergency department in get it removed. Patient reports intermittent discomfort to left toenail. Denies fevers, chills, overlying skin changes, nausea, vomiting, abdominal pain. Related Data Home Medications Medication Instructions Recorded Confirmed albuterol sulfate 90 mcg/actuation 2 puff PO Q4-6H PRN Wheezing 10/02/21 12/17/22 aerosol inhaler (ProAir HFA) duloxetine 60 mg capsule,delayed 1 cap PO BID 10/02/21 12/17/22 release famotidine 20 mg tablet 1 tab PO BID@1200,2100 10/02/21 12/17/22 ferrous sulfate 325 mg (65 mg 1 tab PO QAM 10/02/21 12/17/22 iron) tablet (FeroSul) gabapentin 400 mg capsule 400 mg PO TID 10/22/21 12/17/22 risperidone 1 mg tablet 0.5 mg PO DAILY PRN Agitation 10/22/21 12/17/22 trazodone 150 mg tablet 1 tab PO BEDTIME PRN Sleep 10/22/21 12/17/22 hydrochlorothiazide 12.5 mg tablet 12.5 mg PO DAILY 03/02/22 12/17/22 docusate sodium 100 mg capsule 100 mg PO BEDTIME PRN Constipation 04/19/22 12/17/22 oxycodone-acetaminophen 5 mg-325 1 tab PO Q8H PRN pain 04/19/22 12/17/22 mg tablet apixaban 5 mg tablet (Eliquis) 5 mg PO BID 09/22/22 12/17/22 adalimumab 40 mg/0.4 mL mg subcut Q2W 12/10/22 subcutaneous pen kit (Humira(CF) Pen) alprazolam 1 mg tablet 1 mg PO BEDTIME PRN Anxiety 12/10/22 12/17/22 hydrocortisone 2.5 % topical cream appl topical BID 12/10/22 naloxone 4 mg/actuation nasal spray 0 spray intranasal PRN Opiate 12/10/22 Reversal nicotine 21 mg/24 hr daily 0 patch topical 12/10/22 transdermal patch tocilizumab 162 mg/0.9 mL 162 mg subcut QWEEK 12/10/22 12/17/22 subcutaneous pen injector Previous Rx's Medication Instructions Recorded adhesive bandage 1 #20 ea 05/21/20 ursodiol 500 mg tablet 500 mg PO BID #90 tabs 10/08/21 diclofenac sodium 1 % topical gel 4 g topical QID #100 grams 03/28/22 folic acid 1 mg tablet 1 mg PO QAM #90 tabs 08/17/22 cyclobenzaprine 10 mg tablet 10 mg PO TID PRN muscle spasm #10 08/20/22 tabs lidocaine 5 % topical patch 1 patch topical DAILY #15 ea 08/20/22 (Lidoderm) methotrexate sodium 2.5 mg tablet 20 mg PO QWEEK #32 tabs 09/20/22 acetaminophen 500 mg tablet 500 - 1,000 mg PO Q8-10H PRN pain 09/22/22 #100 tabs prednisone 10 mg tablet 10 mg .Route DAILY #30 tabs 11/08/22 nystatin 100,000 unit/gram topical 1 appl topical BID #30 grams 11/10/22 powder oxycodone 5 mg capsule 5 mg PO BID PRN pain #6 caps 11/22/22 umeclidinium 62.5 mcg/actuation 1 inh PO DAILY #30 ea 11/29/22 blister powder for inhalation (Incruse Ellipta) cholecalciferol (vitamin D3) 25 25 mcg PO DAILY #90 caps 12/10/22 mcg (1,000 unit) capsule pantoprazole 40 mg tablet,delayed 40 mg PO DAILY #90 tabs 12/10/22 release prednisone 10 mg tablet 10 mg PO DIRECTED #36 tabs 12/14/22 ascorbate calcium (vitamin C) 500 1 g PO DAILY 90 days #180 tabs 12/21/22 mg tablet vitamin A palmitate 3,000 mcg 10,000 unit PO DAILY #90 tabs 12/21/22 (10,000 unit) tablet cephalexin 500 mg tablet 500 mg PO Q6H 10 days #40 tabs 01/10/23 Allergies Allergy/AdvReac Type Severity Reaction Status Date / Time almond [ALMONDS] Allergy Severe ANAPHYLAXIS Verified 12/14/22 10:02 adhesive tape [ADHESIVE TAPE] Allergy Intermediate RASH Verified 12/14/22 10:02 morphine [MORPHINE] Allergy Intermediate GI UPSET, Verified 12/14/22 10:02 difficulty breathing tramadol [TRAMADOL] AdvReac Unknown NAUSEA & Verified 12/14/22 10:02 VOMITING Review of Systems Review of Systems: Constitutional : No Weight loss, No Fever, No Chills, No Fatigue, No Malaise ENT/Mouth : No sore throat, No Rhinorrhea Eyes: No Eye Pain, No Swelling, No Redness Cardiovascular : No Chest Pain, No SOB, No Dyspnea on Exertion, No Orthopnea, No Edema, No Palpitations Respiratory : No Cough, No Sputum, No Wheezing Gastrointestinal : No Nausea, No Vomiting, No Diarrhea, No Constipation, No abdominal Pain, No Hematochezia, No Melena Genitourinary : No Dysuria, No Urinary Frequency, No Hematuria, Musculoskeletal : No joint pain, No Myalgias, No Joint Swelling, + toe pain Skin : No Skin Lesions, No rash Neuro : No Weakness, No Numbness, No Dizziness, No Headache Psych : No Anxiety/Panic, No Depression All other systems reviewed and are negative Yes all other systems are reviewed and are negative [facility] Past Medical History Attestation statement: The following information was validated with the patient. Source: old records reviewed and nursing notes reviewed Medical History Acute arthritis Bleeding hemorrhoid Bone cancer Cancer of heart Chronic GERD De Quervain's disease (tenosynovitis) Degeneration of intervertebral disc at C4-C5 level Degeneration, intervertebral disc, lumbar Depressive disorder Esophageal dysphagia Fibromyalgia Gallstones History of chemotherapy Hodgkin disease Hx of peripheral pulmonary artery stenosis Lung cancer Nocturia Osteoarthritis of spine with radiculopathy, lumbar region Rheumatoid arthritis involving multiple sites Seropositive rheumatoid arthritis Stress incontinence in female Systemic lupus erythematosus Urgency-frequency syndrome Vitamin D deficiency Surgical History H/O tubal ligation History of angioplasty of vein History of biopsy History of esophagogastroduodenoscopy (EGD) History of lymph node dissection of left axilla History of repair of inguinal hernia Hx laparoscopic cholecystectomy Hx of colonoscopy Hx of endoscopy Family History Family History Maternal Grandmother Ovarian cancer Social History Social History Household Members: Spouse Housing: Apartment Are you a primary care director to a significant other at home: No 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 Oriented X3.? No acute distress.? Head: Normocephalic, atraumatic, no step-offs or deformities Eyes: Pupils equal, round and reactive to light.? CVS: Normal heart rate and rhythm.? Pulses normal.? Respiratory: No respiratory distress.? Breath sounds normal.? Abdomen: Soft and nontender.? Skin: Skin warm and dry.? Normal skin color.? Normal skin turgor.? Extremities: No lower extremity edema.? No calf ttp. 5/5 strength to bilateral upper and lower extremities + loose left great toenail however still attached for the most part. 2+ dorsalis pedis, anterior tibialis and posterior tibialis pulses equal bilateral. Normal capillary refill less than 2 seconds to bilateral lower extremities. Ambulating w/ steady gait w/ normal coordination. Neuro: Oriented X 3.? No motor deficit.? No sensory deficit. CN 2-12 intact Course Reevaluation(s) Reevaluation #1: Educated patient on diagnosis and treatment plan, answered all question, patient verbalizes understanding. At this time patient will be discharged home, advised to return with new or worsening symptoms. Educated on worrisome signs and symptoms and when to return. At this time I feel comfortable discharge home. Time: 10:15 Medical Decision Making Medical Decision Making MDM Narrative: 47-year-old female presents requesting her left great toenail be removed because it is wiggly. Coming from her primary care office. physical exam patient has a loose left great toenail however still attached for the most part. 2+ dorsalis pedis, anterior tibialis and posterior tibialis pulses equal bilateral. Normal capillary refill less than 2 seconds to bilateral lower extremities. Ambulating w/ steady gait w/ normal coordination. likely partial nail avulsion, no evidence of cellulitis, necrotic infection, nail bed is not exposed, unlikely osteomyelitis. No signs of threatened limb. Plan patient to be discharged with Podiatry follow-up. Will give Keflex for antibiotic coverage. I did discuss this case with my attending who tells me that this is not emergent and removing the nail can cause more damage. Differential Diagnosis Differential Diagnoses: The differential diagnosis associated with the presentation includes likely partial nail avulsion, no evidence of cellulitis, necrotic infection, nail bed is not exposed, unlikely osteomyelitis. No signs of threatened limb. Core Measures AMI core measures followed: Yes Measure exclusions: not indicated Critical Care Time Critical Care Time Critical Care Time: No Discharge Plan Discharge Clinical Impression: Pain of left great toe Patient Disposition: Home, Self-Care Additional Instructions: Take your medications as prescribed. If you were prescribed antibiotics today, it is important that you take your medication to their entirety, do not skip any doses, do not finish them early. Follow-up with your primary care provider this week. Return to the emergency department with new or worsening symptoms. Such as fevers, chills, chest pain, shortness of breath, nausea, vomiting, dizziness, headache, vision changes, lethargy In case of emergency call 911 This should be followed by Podiatry, removing the nail can increase risk for infection therefore this should be done in a controlled setting. There is no need to do this emergently as it can cause more risks. [place] addie medicamentos seg?n lo prescrito. Si le recetaron antibi?ticos hoy, es importante que tome kessler medicamento en kessler totalidad, no se salte ninguna dosis, no los termine antes de tiempo. Seguimiento con kessler proveedor de atenci?n primaria esta semana. Regrese al departamento de emergencias con s?ntomas nuevos o que empeoran. [place] fiebre, escalofr?os, dolor de pecho, dificultad para respirar, n?useas, v?mitos, mareos, dolor de kayla, cambios en la visi?n, letargo En geoff de emergencia llama al [address] [place] debe ir seguido de podolog?a, ya que la extracci?n de la u?a puede aumentar el riesgo de infecci?n, por lo que debe realizarse en un entorno controlado. No hay necesidad de hacer esto de forma urgente, ya que puede causar m?s riesgos. [facility] [address] [facility] [id number] Prescriptions: New cephalexin 500 mg tablet 500 mg PO Q6H 10 Days Qty: 40 0RF No Action (DME) adhesive bandage 1 bandage See Rx Instructions .ROUTE .MEDSUPPLY Qty: 20 5RF Rx Instructions: Use after Methotrexate injection folic acid 1 mg tablet 1 mg PO QAM Qty: 90 1RF methotrexate sodium 2.5 mg tablet 20 mg PO QWEEK Qty: 32 2RF Incruse Ellipta 62.5 mcg/actuation blister with device 1 inh PO DAILY Qty: 30 6RF cholecalciferol (vitamin D3) 25 mcg (1,000 unit) capsule 25 mcg PO DAILY Qty: 90 2RF ascorbate calcium (vitamin C) 500 mg tablet 1 g PO DAILY 90 Days Qty: 180 2RF vitamin A palmitate 3,000 mcg (10,000 unit) tablet 10,000 unit PO DAILY Qty: 90 1RF gabapentin 400 mg capsule 400 mg PO TID trazodone 150 mg tablet 1 tab PO BEDTIME PRN (Reason: Sleep) risperidone 1 mg tablet 0.5 mg PO DAILY PRN (Reason: Agitation) diclofenac sodium 1 % gel 4 g topical QID Qty: 100 0RF Rx Instructions: apply to single knee, ankle, foot; for foot includes sole/toes/top of foot famotidine 20 mg tablet 1 tab PO BID@1200,2100 ferrous sulfate [FeroSul] 325 mg (65 mg iron) tablet 1 tab PO QAM albuterol sulfate [ProAir HFA] 90 mcg/actuation HFA aerosol inhaler 2 puff PO Q4-6H PRN (Reason: Wheezing) duloxetine 60 mg capsule,delayed release(DR/EC) 1 cap PO BID ursodiol 500 mg tablet 500 mg PO BID Qty: 90 1RF cyclobenzaprine 10 mg tablet 10 mg PO TID PRN (Reason: muscle spasm) Qty: 10 0RF lidocaine [Lidoderm] 5 % adhesive patch,medicated 1 patch topical DAILY Qty: 15 0RF Rx Instructions: leave on most painful area for up to 12 hrs nystatin 100,000 unit/gram powder 1 appl topical BID Qty: 30 0RF oxycodone 5 mg capsule 5 mg PO BID PRN (Reason: pain) Qty: 6 0RF Rx Instructions: Partial Fill upon patient request. prednisone 10 mg tablet 10 mg PO DIRECTED Qty: 36 0RF Rx Instructions: Take 4 tablets for 4 days THEN; Take 3 tablets for 4 days THEN; Take 2 tablets for 4 days THEN; Return to 1 tablets per day oxycodone-acetaminophen 5-325 mg tablet 1 tab PO Q8H PRN (Reason: pain) docusate sodium 100 mg capsule 100 mg PO BEDTIME PRN (Reason: Constipation) hydrochlorothiazide 12.5 mg tablet 12.5 mg PO DAILY hydrocortisone 2.5 % cream topical BID alprazolam 1 mg tablet 1 mg PO BEDTIME PRN (Reason: Anxiety) naloxone 4 mg/actuation spray,non-aerosol 0 spray intranasal PRN (Reason: Opiate Reversal) nicotine 21 mg/24 hr patch 24 hour 0 patch topical tocilizumab 162 mg/0.9 mL pen injector 162 mg subcut QWEEK Rx Instructions: note increase to once a week Humira(CF) Pen 40 mg/0.4 mL pen injector kit subcut Q2W pantoprazole 40 mg tablet,delayed release (DR/EC) 40 mg PO DAILY Qty: 90 1RF prednisone 10 mg tablet 10 mg .ROUTE DAILY Qty: 30 3RF Rx Instructions: take with breakfast Eliquis 5 mg tablet 5 mg PO BID acetaminophen 500 mg tablet 500 - 1,000 mg PO Q8-10H PRN (Reason: pain) Qty: 100 4RF Referrals: Mackenzie Estrada MD [Primary Care Provider] - 2 days
[2023-01-10 10:09] VITALS: BP 140/86; PULSE 74; RESP 19; TEMP 36.2; O2SAT 98
[2023-01-10 10:14] VITALS: BP 140/86; PULSE 74; RESP 19; TEMP 36.2; O2SAT 98
== END 2023-01-10 10:42 | disposition home or self-care (01) ==
PROVIDERS: Emergency Provider Emergency Medicine; PCP General Practice
DX: M79.675 Pain in left toe(s) (principal)
CPT/HCPCS: 99283; 99284

== ENCOUNTER → 2023-01-17 11:07 | Outpatient (BNVA) | payer MEDICAID, SELFPAY | PROVIDERS: Visit Provider Internal Medicine Gastroenterology | DX: M05.9 Rheumatoid arthritis with rheumatoid factor, unspecified (principal); R13.10 Dysphagia, unspecified | CPT/HCPCS: 99212 ==

== ENCOUNTER → 2023-02-07 11:32 | Outpatient (BNVA) | payer MEDICAID, SELFPAY | PROVIDERS: PCP General Practice; Visit Provider Internal Medicine Rheumatology ==

== ENCOUNTER 2023-02-10 10:04 | Outpatient (AMB) | payer MEDICAID, SELFPAY ==
[2023-02-10 10:06] VITALS: BP 122/64; PULSE 75; TEMP 36.9; O2SAT 97; BMI 32.7
--- NOTE | 2023-02-10 10:06 | MHC.OFFVIS ---
Intake Vital Signs 02/10/23 10:06 Height 5 ft 6 in Weight 202 lb 6.15 oz BMI 32.7 BP 122/64 Blood Pressure Location Lt brachial Position Sitting Pulse 75 Pulse Source Pulse Oximeter Temp 98.4 F Temp Source Skin Pulse Oximetry (%) 97 Intake Visit Reasons: Lupus, RA Intake Note: Pt seen today for follow up. Reports she just had a visit with oncology and is concerned about growths' on bl elbows, was told they could be tumors. C/o bl hand pain and swelling, worse on left. Shift Production Associate Required: Yes Shift Production Associate Language: Flocculator Operator Name: [email or web address] [id number] Information Interpreted: clinical only Accompanied by: Self / Same As Patient Allergies almond [ALMONDS] Allergy (Severe, Verified 02/10/23 10:09) ANAPHYLAXIS adhesive tape [ADHESIVE TAPE] Allergy (Intermediate, Verified 02/10/23 10:09) RASH morphine [MORPHINE] Allergy (Intermediate, Verified 02/10/23 10:09) GI UPSET, difficulty breathing tramadol [TRAMADOL] Adverse Reaction (Unknown, Verified 02/10/23 10:09) NAUSEA & VOMITING Medication List - Last Reconciled 02/10/23 by Tom Ram MD acetaminophen 500 - 1,000 mg (1 - 2 x 500 mg) PO Q8-10H PRN adhesive bandage Use after Methotrexate injection albuterol sulfate 90 mcg/actuation (ProAir HFA) 2 puffs PO Q4-6H PRN alprazolam 1 mg PO BEDTIME PRN apixaban (Eliquis) 5 mg PO BID ascorbate calcium (vitamin C) 1 g (2 x 500 mg) PO DAILY 90 days benztropine 0.5 mg PO QAM cephalexin 500 mg PO Q6H 10 days cholecalciferol (vitamin D3) 25 mcg PO DAILY cyclobenzaprine 10 mg PO TID PRN diclofenac sodium 1% 4 grams topical QID docusate sodium 100 mg PO BEDTIME PRN duloxetine 1 cap PO BID famotidine 1 tab PO BID@1200,2100 ferrous sulfate (FeroSul) 1 tab PO QAM folic acid 1 mg PO QAM gabapentin 400 mg PO TID hydrochlorothiazide 12.5 mg PO DAILY hydrocortisone 2.5% appl topical BID lidocaine 5% (Lidoderm) 1 patch topical DAILY methotrexate sodium 20 mg (8 x 2.5 mg) PO QWEEK naloxone 4 mg/actuation 0 sprays intranasal PRN nicotine 0 patches topical nystatin 1 appl topical BID oxycodone 5 mg PO BID PRN oxycodone-acetaminophen 5-325 mg 1 tab PO Q8H PRN pantoprazole 40 mg PO DAILY prednisone 10 mg PO DIRECTED risperidone 0.5 mg PO DAILY PRN sertraline 0 mg PO trazodone 1 tab PO BEDTIME PRN umeclidinium 62.5 mcg/actuation (Incruse Ellipta) 1 inh PO DAILY ursodiol 500 mg PO BID vitamin A palmitate 10,000 units PO DAILY HPI HPI Comments History of Present Illness Details The patient returns for evaluation of her seropositive rheumatoid arthritis. The [employer] translating service was used to facilitate the visit. She did visit the ER in December with painful swelling according to the ER note in the left 1st toe. The patient says it was the right toe however. In any case both 1st MTPs are painful. She also has pain in the left wrist and hand but not some much in the right wrist today. She remains on 20 mg weekly methotrexate, folic acid 1 mg daily, duloxetine, gabapentin, lidocaine patch, oxycodone, and prednisone 10 mg daily. She does take extra prednisone on bad days up to 10 mg b.i.d.. She stopped the Actemra because it did not seem to help her and she had noted more leg swelling. The patient reports that she visited the hematology nurse and received a B12 injection. They noted the development of some nodular type lesions over the ears and olecranon regions. These are somewhat painful. Occasionally they drain some fluid. [facility] Medical History Acute arthritis Bleeding hemorrhoid Bone cancer Cancer of heart Chronic GERD De Quervain's disease (tenosynovitis) Degeneration of intervertebral disc at C4-C5 level Degeneration, intervertebral disc, lumbar Depressive disorder Esophageal dysphagia Fibromyalgia Gallstones History of chemotherapy Hodgkin disease Hx of peripheral pulmonary artery stenosis Lung cancer Nocturia Osteoarthritis of spine with radiculopathy, lumbar region Rheumatoid arthritis involving multiple sites Seropositive rheumatoid arthritis Stress incontinence in female Systemic lupus erythematosus Urgency-frequency syndrome Vitamin D deficiency Surgical History H/O tubal ligation History of angioplasty of vein History of biopsy History of esophagogastroduodenoscopy (EGD) History of lymph node dissection of left axilla History of repair of inguinal hernia Hx laparoscopic cholecystectomy Hx of colonoscopy Hx of endoscopy Family History Maternal Grandmother Ovarian cancer Social History Household Members: Spouse Housing: Apartment Are you a primary manager intensive care unit to a significant other at home: No Do 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 have 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 or other home services: Yes (process technician) Alcohol intake: never Patient Tobacco Use Status: Never used Tobacco Tobacco use type: Cigarette Substance Use Type: Marijuana Advance Directives Date on File: 09/23/20 service: No Current occupational status: disabled 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 Negative for appetite change, weight change, fever, chills, malaise Eyes Details: Negative for vision change, dry eyes,headaches and dizziness ENT Details: Negative for hearing change, tinnitus, oral ulcer, nose bleeds and oral dryness. Card Details: Negative chest pain, edema and syncope Resp Details: Negative for SOB, cough and wheezing GI Details: Negative indigestion/heartburn, nausea, abdominal pain, bowel changes, diarrhea, constipation and bloody stool. Skin/Breast Details: Tender nodules as noted above. Negative for itching, rash, hives, Raynaud's symptoms, sun sensitivity, and skin cancer Psych Details: Negative for anxiety, depression and stress Endo Details: Negative for polyuria and polydypsia Ki/Lymph Details: Negative for excessive bruising or bleeding. Physical Exam Vital Signs: Last Vital Signs Temp 98.4 F 02/10/23 10:06 Pulse 75 02/10/23 10:06 BP 122/64 02/10/23 10:06 Pulse Ox 97 02/10/23 10:06 BMI result Body Mass Index 32.7 APPEARANCE: Patient in no acute distress EYES no redness, pupils equal and reactive to light, eyelids normal EARS: External ears on both sides have some tiny nodules over the helix of the ear. These are slightly tender. The right has some slight drainage. Her auditory canal isl clear and tympanic membrane normal. NOSE/SINUS: Airflow through both nares, no nasal discharge, no bleeding THROAT: Oral mucosa moist, no ulcerations NECK: No thyromegaly or masses, no adenopathy, trachea midline. HEART: Regulrar rhythm, S1-S2 heard, no murmurs, rubs or gallops. LUNG: Clear to percussion and auscultation ABD: Normal bowel sounds, no organomegaly, masses or tenderness. EXTREMITIES: No edema, no calf tenderness, normal peripheral pulses. NEURO: Oriented and alert x3. No focal weakness. Reflexes symmetric. Gait normal. SKIN: 2-4 mm nodules, slightly tender over the olecranon area and the pinna of the ears. The nodules except for the 1 on the left ear have some slight scaling and a dry eschar. The surrounding tissues are not tender or swollen. JOINT EXAM: Cervical Spine:.? Mild pain with extremes of motion.? Mild cervical muscle tenderness. Thoracic Spine:.? No scoliosis.? No tenderness on palpation. Lumbar Spine:.? Alignment normal.? Full range of motion with pain at the extremes.? Mild paraspinal muscle tenderness. Chest Wall:.? No tenderness, swelling, increased warmth or erythema. Hands:. right:? There slight swelling at the 1st 3 MCP joints.? The 2nd and 3rd have minimal tenderness. No redness or warmth is appreciated.? No pain with range of motion in the MCPs; there is mild tenderness along the flexor tendons in 2nd and 3rd fingers.? She may have some slight sensory loss.? The 2nd PIP joint has some slight thickening and tenderness.? ? Her hand does seem to be warm and well perfused. ? There is no objective sign of Raynaud's phenomenon.?? Left:? There is? mild swelling and mild to moderate pain at the 2nd through 4th MCP joints. There is similar mild to moderate pain with minimal thickening at the 2nd through 4th PIP joints. Wrists: ? Right:? There is slight swelling but 75 degrees of flexion and 45 degrees of extension with minimal discomfort. There is slight dorsal tenderness. Left:? Moderate pain with more than 30 degrees flexion or extension. There is mild swelling and moderate tenderness but no redness or warmth. Elbows:? Right:? there are nodules felt over the ulnar area and in the olecranon region bilaterally.?These are slightly tender. There is some eschar and some evidence of dry drainage. There is no pain with range of motion at the elbow. There is some minimal tenderness over the joint space without swelling. ? Left:? She has normal pain-free range of motion without tenderness, swelling, increased warmth or erythema in the left elbow joint. There is 2 small nodules that are slightly tender with some evidence of dry discharge. See below for a photo of the nodules over the olecranon regions. Shoulders: ? Right:? There is mild to moderate pain the with abduction at 120 degrees or with more than 10 degrees of internal or external rotation.? There is mild anterior and posterior tenderness of a moderate degree.? There is no axillary or supraclavicular adenopathy.? There may be some abductor weakness but it is hard to assess because of pain with motion.? Left:?? Full range of motion with? Slight discomfort at the extremes.? There is mild anterior and posterior tenderness without swelling, adenopathy, increased warmth or erythema. Hips:? Full range of motion with some lower back pain with extremes of internal and external rotation.? No groin pain with motion. Hip bursa:? ? Mild trochanteric tenderness on the right. ? Knees: ? Right:? From there is mild patellofemoral crepitus and slight pain with the extremes of flexion or extension.? Mild medial tenderness and mild patellofemoral crepitus.? No redness or effusion. ? Left: Mild patellofemoral crepitus and no pain with extremes of flexion extension.? Slight medial tenderness without redness or effusion. Ankles:? Normal pain-free range of motion with mild tenderness but no swelling, increased warmth or erythema. Feet:? Right: There is mild to moderate tenderness at the 1st 2 MTP joints. The 1st toenail may be a bit loose but the surrounding cuticle is not tender or swollen. There is also mild tenderness in the distal instep. Left: Slight tenderness at the 1st 2 MTP joints and in the instep. No redness or warmth. Tender points:?? mild tenderness to digital palpation at the occiput, trapezius, second rib, lateral epicondyle, knees, greater trochanter and gluteal area bilaterally. ? Elbow nodules: ? Results Reviewed Results Reviewed: Laboratory Tests 12/14/22 12/14/22 12/14/22 11:17 11:17 11:17 WBC 4.6 L Hgb 12.6 ESR 71 H Creatinine 0.86 AST 15 ALT 12 C-Reactive Protein 0.83 H 02/10/23 11:14 WBC Hgb ESR Creatinine 0.75 AST ALT C-Reactive Protein Assessment & Plan Assessment & Plan (1) long-term methotrexate user: Code(s): Z79.899 - Other [facility] (current) drug therapy (2) Fibromyalgia: Code(s): M79.7 - Fibromyalgia (3) Rheumatoid nodules: Code(s): M06.30 - Rheumatoid nodule, unspecified site (4) Seropositive rheumatoid arthritis: Comment: RF,CCP pos. regularly requiring prednisone. methotrexate and hydroxychloroquine ?2019 2020 methotrexate and Humira(HCQ stopped - ?vision changes). 06/2022 Humira stopped due to poor repsonse 06/2022 methotrexate and Actemra 12/2022: Actemra stopped by the patient. She had some leg swelling as well. Code(s): M05.9 - Rheumatoid arthritis with rheumatoid factor, unspecified Plan Rheumatoid arthritis now with continued synovitis requiring extra doses of prednisone. She has now been on methotrexate and hydroxychloroquine, methotrexate and Humira, and methotrexate and Actemra without an adequate clinical response. She is developing some more tender nodules on the ears and elbows. This does look like a rheumatoid nodule picture since she is markedly seropositive. She tends to have rather a migratory type of synovitis so that raises the question whether she could actually have gout. The nodules however are relatively small for tophi. We will check x-rays of the elbows to see if they have any calcium within them which would go more for cutaneous calcinosis. I will also check a uric acid level. We will need to try a different DMARD in her case. We will recheck the blood work and consider the use of rituximab infusions for her. This may solve the problem of her being compliant since we will be administering them in the infusion center. For now she should stay on the methotrexate and prednisone as above. She could take extra prednisone on bad days up to 30 mg daily. We will schedule a visit back in 6 weeks but in the meantime work to get approval on the rituximab. Orders: Orders XR elbow LT min 3V Today M05.9 - Rheumatoid arthritis with rheumatoid factor, unspecified XR elbow RT min 3V Today M05.9 - Rheumatoid arthritis with rheumatoid factor, unspecified Comprehensive Met. Panel Today M05.9 - Rheumatoid arthritis with rheumatoid factor, unspecified, Z79.899 - Other [facility] (current) drug therapy C Reactive Protein Today M05.9 - Rheumatoid arthritis with rheumatoid factor, unspecified, Z79.899 - Other [place]current[facility] drug therapy Uric Acid Today M05.9 - Rheumatoid arthritis with rheumatoid factor, unspecified, Z79.899 - Other [facility] (current) drug therapy Complete Blood Count Auto Diff Today M05.9 - Rheumatoid arthritis with rheumatoid factor, unspecified, Z79.899 - Other [place] [facility] (current[facility] drug therapy Erythrocyte Sedimentation Rate Today M05.9 - Rheumatoid arthritis with rheumatoid factor, unspecified, Z79.899 - Other [place] [facility] (current[facility] drug therapy Coding Level of Care Code Est Pt Level 4 (77484) Diagnoses intermediate accountant 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
== END 2023-02-10 11:02 | disposition home or self-care (01) ==
PROVIDERS: PCP General Practice; Visit Provider Internal Medicine Rheumatology
DX: Z79.899 Other long term (current) drug therapy (principal); M79.7 Fibromyalgia; M06.30 Rheumatoid nodule, unspecified site; M05.79 Rheumatoid arthritis with rheumatoid factor of multiple sites without organ or systems involvement
CPT/HCPCS: 99214

== ENCOUNTER 2023-02-10 10:04 | Outpatient (REF) | payer MEDICAID, SELFPAY ==
--- NOTE | ~2023-02-10 | XR_ITS ---
EXAMINATION: XR ELBOWS, BILATERAL CLINICAL INFORMATION: Rheumatoid arthritis with rheumatoid factor. Do the olecranon nodules have calcium? COMPARISON: Right elbow 02/01/2022, left elbow 06/08/2021. TECHNIQUE: 3 views each elbow. FINDINGS: The bones and joints appear normal. No significant olecranon soft tissue nodule is seen and no soft tissue calcifications are identified. XR/XR elbow LT min 3V IMPRESSION: No abnormal soft tissue calcifications are seen. The elbow joints appear normal.
--- NOTE | ~2023-02-10 | XR_ITS ---
EXAMINATION: XR ELBOWS, BILATERAL CLINICAL INFORMATION: Rheumatoid arthritis with rheumatoid factor. Do the olecranon nodules have calcium? COMPARISON: Right elbow 02/01/2022, left elbow 06/08/2021. TECHNIQUE: 3 views each elbow. FINDINGS: The bones and joints appear normal. No significant olecranon soft tissue nodule is seen and no soft tissue calcifications are identified. XR/XR elbow RT min 3V IMPRESSION: No abnormal soft tissue calcifications are seen. The elbow joints appear normal.
== END 2023-02-10 10:05 | disposition home or self-care (01) ==
LOC: HO.XRAY 10:04
PROVIDERS: PCP General Practice; Visit Provider Internal Medicine Rheumatology
DX: M05.9 Rheumatoid arthritis with rheumatoid factor, unspecified (principal); M06.322 Rheumatoid nodule, left elbow; M06.321 Rheumatoid nodule, right elbow; M79.7 Fibromyalgia; Z79.899 Other long term (current) drug therapy
CPT/HCPCS: 73080; 99212

== ENCOUNTER 2023-02-10 11:09 | Outpatient (REF) | payer MEDICAID, SELFPAY ==
[2023-02-10 13:33] LABS: MANUAL DIFF FLAG NO
[2023-02-10 13:56] LABS: Basophils Percent Auto 0.3 % (0-2); Eosinophils Percent Auto 0.7 % (0-4); Hematocrit 37.8 % (37.0-47.0); Hemoglobin 12.2 g/dl (12.0-16.0); Imm Gran Abs Auto 0.02 X10*3/uL (0.00-0.03); Imm Gran Pct Auto 0.3 % (0.0-0.4); Lymphocytes Absolute Auto 1.6 X10*3/uL (1.2-4.9); Lymphocytes Percent Auto 27.1 % (20-40); Mean Corpuscular HGB Conc 32.3 g/dl (31.0-35.0); Mean Corpuscular Hemoglobin 31.7 pg (27.0-33.0); Mean Corpuscular Volume 98.2 fL (80.0-98.0); Mean Platelet Volume 10.4 fL (9.4-12.3); Monocytes Absolute Auto 0.5 X10*3/uL (0.1-1.2); Monocytes Percent Auto 8.2 % (2-11); Neutrophils Absolute Auto 3.7 x10*3/uL (2.0-8.3); Neutrophils Percent Auto 63.4 % (45-73); Platelet Count 248 X10*3/uL (160-400); Red Blood Count 3.85 X10*6/uL (4.20-5.50); Red Cell Distribution Width 13.7 % (11.0-16.0); White Blood Count 5.8 X10*3/uL (4.8-10.8)
[2023-02-10 14:02] LABS: Alanine Aminotransferase 10 U/L (0-31); Albumin Level 4.1 g/dL (3.5-5.0); Alkaline Phosphatase 62 U/L (39-117); Anion Gap 12 (12-20); Aspartate Amino Transferase 14 U/L (5-31); Bilirubin Total 0.5 mg/dL (0.0-1.0); Blood Urea Nitrogen 11 mg/dL (9-16); C Reactive Protein 0.71 mg/dL (< or = 0.50); Carbon Dioxide 26 mmol/L (22-29); Chloride 105 mmol/L (96-108); Estimated Glomerular Filt Rate > 60; Glucose Random 87 mg/dL (60-115); Potassium 3.9 mmol/L (3.3-5.1); Sodium 139 mmol/L (135-145); Total Protein 8.5 g/dL (6.5-8.0); Uric Acid 6.4 mg/dL (2.4-5.7)
[2023-02-10 14:43] LABS: Erythrocyte Sedimentation Rate 66 MM/HR (0-20)
== END 2023-02-10 11:10 | disposition home or self-care (01) ==
LOC: HO.10HDL 11:09
PROVIDERS: Visit Provider Internal Medicine Rheumatology
DX: M05.9 Rheumatoid arthritis with rheumatoid factor, unspecified (principal); Z79.899 Other long term (current) drug therapy
CPT/HCPCS: 36415; 80053; 84550; 85025; 85652; 86140

== ENCOUNTER 2023-03-04 12:00 | Emergency (ER) | payer MEDICAID, SELFPAY ==
--- NOTE | ~2023-03-04 | US_ITS ---
EXAMINATION: US VENOUS WITH DOPPLER UPPER EXTREMITY, LEFT CLINICAL INFORMATION: Left upper extremity pain and swelling. COMPARISON: None available. TECHNIQUE: Ultrasound of the upper extremity is performed using compression sonography and color and pulse Doppler flow with assessment of augmentation of flow. There is also imaging and Doppler assessment of the jugular and subclavian veins. Spectral analysis with color-flow imaging is performed. FINDINGS: Respiratory variation, normal compression, and augmented flow are noted throughout the upper extremity including the axillary, brachial, cubital, and radial and ulnar veins. There is normal flow in the internal jugular and subclavian veins. There is no visible deep or superficial thrombophlebitis. US/US venous duplex UE LT IMPRESSION: No evidence for deep venous thrombosis in the visualized veins of the left upper extremity.
--- NOTE | ~2023-03-04 | XR_ITS ---
EXAMINATION: XR HAND, LEFT CLINICAL INFORMATION: Left hand swelling, decreased range of motion. COMPARISON: Left wrist radiographs dated 10/14/2022. TECHNIQUE: PA, lateral, and oblique views of the left hand. FINDINGS: The bones and soft tissues are normal. No fracture. Alignment is anatomic. Joint spaces are maintained. No erosions or soft tissue calcifications. XR/XR hand LT min 3V IMPRESSION: Unremarkable left hand.
--- NOTE | 2023-03-04 12:02 | ECG_ITS ---
Test Reason : CP Blood Pressure : / mmHG Vent. Rate : 072 BPM Atrial Rate : 072 BPM P-R Int : 178 ms QRS Dur : 112 ms QT Int : 388 ms P-R-T Axes : 049 -58 033 degrees QTc Int : 424 ms Normal sinus rhythm Left anterior fascicular block Moderate voltage criteria for LVH, may be normal variant ( R in aVL , Remy product ) Septal infarct (cited on or before 10-NOV-2022) Abnormal ECG When compared with ECG of 22-NOV-2022 21:13, Left anterior fascicular block is now Present Questionable change in initial forces of Septal leads Referred By: Generic ED Physician Electronically Signed By:KENN STEVENSON
[2023-03-04 12:16] VITALS: BP 145/73; PULSE 82; RESP 18; TEMP 36.8; O2SAT 96; BMI 26.8
--- NOTE | 2023-03-04 12:17 | ED.GENADULT ---
HPI - General Adult General Chief complaint: General Medical Stated complaint: arm pain into chest Time Seen by Provider: 03/04/23 15:52 Source: patient, family and elementary school counselor (declined) Mode of arrival: ambulatory Limitations: no limitations History of Present Illness HPI narrative: 47 yo female hx of RA on methotrexate, lupus, PAD, HARINI, opiate dependence, CT of R hand atraumatic painful L hand pain no fevers, rash, insect bite, no numbness. hurts to move hand hx of carpal tunnel in R hand complaint: L hand pain Onset (ago): day(s) (2) Location: left and upper extremity Radiation: non-radiation Severity: moderate Quality: aching Pain Consistency: constant Relieving factors: immobilization Exacerbating factors: movement Associated symptoms: denies other symptoms Treatments prior to arrival: none Related Data Home Medications Medication Instructions Recorded Confirmed albuterol sulfate 90 mcg/actuation 2 puff PO Q4-6H PRN Wheezing 10/02/21 02/10/23 aerosol inhaler (ProAir HFA) duloxetine 60 mg capsule,delayed 1 cap PO BID 10/02/21 02/10/23 release famotidine 20 mg tablet 1 tab PO BID@1200,2100 10/02/21 02/10/23 ferrous sulfate 325 mg (65 mg 1 tab PO QAM 10/02/21 02/10/23 iron) tablet (FeroSul) gabapentin 400 mg capsule 400 mg PO TID 10/22/21 02/10/23 risperidone 1 mg tablet 0.5 mg PO DAILY PRN Agitation 10/22/21 02/10/23 trazodone 150 mg tablet 1 tab PO BEDTIME PRN Sleep 10/22/21 02/10/23 hydrochlorothiazide 12.5 mg tablet 12.5 mg PO DAILY 03/02/22 02/10/23 docusate sodium 100 mg capsule 100 mg PO BEDTIME PRN Constipation 04/19/22 02/10/23 oxycodone-acetaminophen 5 mg-325 1 tab PO Q8H PRN pain 04/19/22 02/10/23 mg tablet apixaban 5 mg tablet (Eliquis) 5 mg PO BID 09/22/22 02/10/23 alprazolam 1 mg tablet 1 mg PO BEDTIME PRN Anxiety 12/10/22 02/10/23 hydrocortisone 2.5 % topical cream appl topical BID 12/10/22 02/10/23 naloxone 4 mg/actuation nasal spray 0 spray intranasal PRN Opiate 12/10/22 02/10/23 Reversal nicotine 21 mg/24 hr daily 0 patch topical 12/10/22 02/10/23 transdermal patch benztropine 0.5 mg tablet 0.5 mg PO QAM 01/17/23 02/10/23 sertraline 50 mg tablet 0 mg PO 01/17/23 02/10/23 Previous Rx's Medication Instructions Recorded adhesive bandage 1 #20 ea 05/21/20 ursodiol 500 mg tablet 500 mg PO BID #90 tabs 10/08/21 diclofenac sodium 1 % topical gel 4 g topical QID #100 grams 03/28/22 cyclobenzaprine 10 mg tablet 10 mg PO TID PRN muscle spasm #10 08/20/22 tabs lidocaine 5 % topical patch 1 patch topical DAILY #15 ea 08/20/22 (Lidoderm) acetaminophen 500 mg tablet 500 - 1,000 mg PO Q8-10H PRN pain 09/22/22 #100 tabs nystatin 100,000 unit/gram topical 1 appl topical BID #30 grams 11/10/22 powder oxycodone 5 mg capsule 5 mg PO BID PRN pain #6 caps 11/22/22 umeclidinium 62.5 mcg/actuation 1 inh PO DAILY #30 ea 11/29/22 blister powder for inhalation (Incruse Ellipta) prednisone 10 mg tablet 10 mg PO DIRECTED #36 tabs 12/14/22 ascorbate calcium (vitamin C) 500 1 g PO DAILY 90 days #180 tabs 12/21/22 mg tablet vitamin A palmitate 3,000 mcg 10,000 unit PO DAILY #90 tabs 12/21/22 (10,000 unit) tablet cephalexin 500 mg tablet 500 mg PO Q6H 10 days #40 tabs 01/10/23 pantoprazole 40 mg tablet,delayed 40 mg PO DAILY #90 tabs 01/17/23 release methotrexate sodium 2.5 mg tablet 20 mg PO QWEEK #32 tabs 01/24/23 folic acid 1 mg tablet 1 mg PO QAM #90 tabs 01/31/23 cholecalciferol (vitamin D3) 25 25 mcg PO QAM #90 caps 02/28/23 mcg (1,000 unit) capsule (Vitamin D3) oxycodone 10 mg tablet 10 mg PO TID PRN pain #9 tabs 03/04/23 prednisone 20 mg tablet 40 mg PO DAILY 3 days #6 tabs 03/04/23 Allergies Allergy/AdvReac Type Severity Reaction Status Date / Time almond [ALMONDS] Allergy Severe ANAPHYLAXIS Verified 02/10/23 10:09 adhesive tape [ADHESIVE TAPE] Allergy Intermediate RASH Verified 02/10/23 10:09 morphine [MORPHINE] Allergy Intermediate GI UPSET, Verified 02/10/23 10:09 difficulty breathing tramadol [TRAMADOL] AdvReac Unknown NAUSEA & Verified 02/10/23 10:09 VOMITING Review of Systems Review of Systems: Constitutional : No Fever, No Chills Cardiovascular : No Chest Pain, No SOB Respiratory : No Cough, No Dyspnea Gastrointestinal : No Nausea, No Vomiting, No Diarrhea, No abdominal Pain Genitourinary : No Dysuria, No Hematuria Musculoskeletal : positive joint pain, No Myalgias, pos Joint Swelling Skin : No Skin lacerations, No rash Neuro : No Weakness, No Numbness, No Loss of Consciousness, No Dizziness, No Headache All other systems reviewed and are negative [facility] Past Medical History Medical History (Updated 03/04/23 @ 16:12 by Megan Pathak DO) Acute arthritis Bleeding hemorrhoid Bone cancer Cancer of heart Chronic GERD De Quervain's disease (tenosynovitis) Degeneration of intervertebral disc at C4-C5 level Degeneration, intervertebral disc, lumbar Depression Depressive disorder Esophageal dysphagia Fibromyalgia Gallstones History of chemotherapy Hodgkin disease Hx of peripheral pulmonary artery stenosis Lung cancer Nocturia Osteoarthritis of spine with radiculopathy, lumbar region Rheumatoid arthritis involving multiple sites Seropositive rheumatoid arthritis Stress incontinence in female Systemic lupus erythematosus Urgency-frequency syndrome Vitamin D deficiency Surgical History H/O tubal ligation History of angioplasty of vein History of biopsy History of esophagogastroduodenoscopy (EGD) History of lymph node dissection of left axilla History of repair of inguinal hernia Hx laparoscopic cholecystectomy Hx of colonoscopy Hx of endoscopy Family History Family History Maternal Grandmother Ovarian cancer Social History Social History Household Members: Spouse Housing: Apartment Are you a primary manager intensive care unit to a significant other at home: No Do 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 have 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 or other home services: 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 (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) Alcohol intake: never Patient Tobacco Use Status: Never used Tobacco Tobacco use type: Cigarette Smoked in Last 30 Days: Yes Use of substances other than those prescribed or required for medical reasons: Yes Substance Use Type: Marijuana Advance Directives: No Advance Directives Information Provided: Yes Advance Directives Date on File: 09/23/20 Patient : No service: No Current occupational status: disabled 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 Oriented X3. No acute distress. Eyes: Pupils equal, round and reactive to light. ENT: Pharynx normal. Neck: Normal inspection. Neck supple. CVS: Normal heart rate and rhythm. Pulses normal. Respiratory: No respiratory distress. Breath sounds normal. Abdomen: Soft and nontender. Skin: Skin warm and dry. Normal skin color. Normal skin turgor. Extremities: No lower extremity edema. L hand ttp along carpal area + tinels sign no redness, or warmth, has ttp and mild swelling into prox fingers 2-4. BCR In all digits 2+ radial pulse, SILT throughout. no swelling in wrist or forearm Neuro: Oriented X 3. No motor deficit. No sensory deficit. Course Course Course Narrative: This is a rapid medical exam: Additional HPI, ROS, PE not included below will be deferred to primary provider. Patient is a 47-year-old Sinhala-speaking female with history of rheumatoid arthritis, DVTs, emphysema, HARINI, PAD, SLE, OA, Hodgkin's presenting to the emergency department with complaint of left hand pain and swelling as well as mild chest pain since yesterday. Started yesterday, has worsened today. Reports decreased ROM with flexion of fingers due to swelling. States the pain is radiating up left arm to chest. Mild swelling to proximal anterior forearm. Plan: x-ray, U/S, labs Medications Administered Discontinued Medications Generic Name Dose Route Start Last Admin Trade Name Starla PRN Reason Stop Dose Admin Oxycodone HCl 5 mg 03/04/23 15:45 03/04/23 15:55 Oxycodone Hcl Immed Release 5 Mg Tablet PO 03/04/23 15:46 5 mg ONCE ONE Administration Medical Decision Making Medical Decision Making [facility] Narrative: 47 yo female hx of RA on methotrexate, lupus, PAD, HARINI, opiate dependence, CT of R hand she comes in with 2 days of L hand pain and swelling - NV Intact but there is swelling no signs of infection. She denies overuse or trauma she normally has issues with the R hand. I see no signs of infection no signs of compartment issues or NV compromise at this time will start on increased prednisone 40mg x 3 days, oxycodone 10mg TID for 3 days and wrist splint suspect arthrirtis vs carpal tunnel will refer to orthopedics. Differential Diagnosis Differential Diagnoses: The differential diagnosis associated with the presentation includes arthritis, gout, trauma, DVT, strain Admission/Observation Consideration of admission/observation: Escalation of care including admission/observation considered pain well controlled with oral medications no acute limb ischemia or infection noted Lab Data [facility] Lab Attestation statement: I reviewed the patient's lab results. 03/04/23 12:33 03/04/23 12:33 Labs: Lab Results 03/04/23 03/04/23 03/04/23 Range/Units 12:33 12:33 12:33 WBC 6.5 (4.8-10.8) X10*3/uL RBC 3.87 L (4.20-5.50) X10*6/uL Hgb 11.9 L (12.0-16.0) g/dl Hct 36.8 L (37.0-47.0) % MCV 95.1 (80.0-98.0) fL MCH 30.7 (27.0-33.0) pg MCHC 32.3 (31.0-35.0) g/dl RDW 13.6 (11.0-16.0) % Plt Count 269 (160-400) X10*3/uL MPV 9.8 (9.4-12.3) fL Immature Gran % (Auto) 0.2 (0.0-0.4) % Neut % (Auto) 66.5 (45-73) % Lymph % (Auto) 26.5 (20-40) % [place] % (Auto) 5.9 (2-11) % Eos % (Auto) 0.6 (0-4) % Baso % (Auto) 0.3 (0-2) % Lymph # (Auto) 1.7 (1.2-4.9) X10*3/uL [place] # (Auto) 0.4 (0.1-1.2) X10*3/uL Eos # (Auto) 0.0 (0.0-0.4) X10*3/uL Baso # (Auto) 0.0 (0.0-0.2) X10*3/uL Abs Immat Gran (auto) 0.01 (0.00-0.03) X10*3/uL Absolute Neuts (auto) 4.3 (2.0-8.3) x10*3/uL Absolute Nucleated RBC 0.000 (0.0-0.012) X10*3/uL Nucleated RBC % (auto) 0.0 (0.0-0.2) /100WBC PT 14.6 H (11.1-13.3) SEC INR 1.2 H (0.9-1.1) Sodium 139 (135-145) mmol/L Potassium 3.9 (3.3-5.1) mmol/L Chloride 106 (96-108) mmol/L Carbon Dioxide 22 (22-29) mmol/L Anion Gap 17 (12-20) BUN 14 (9-16) mg/dL Creatinine 0.72 (0.5-1.4) mg/dL Estim Creat Clear Calc 94.2 Estimated GFR > 60 Random Glucose 89 (60-115) mg/dL Calcium 10.4 H (8.4-10.2) mg/dL Total Bilirubin 0.4 (0.0-1.0) mg/dL AST 16 (5-31) U/L ALT 12 (0-31) U/L Alkaline Phosphatase 70 (39-117) U/L Troponin I High Sens (<3.5-17.0) ng/L Total Protein 9.0 H (6.5-8.0) g/dL Albumin 4.2 (3.5-5.0) g/dL 08/04/23 Range/Units 12:33 WBC (4.8-10.8) X10*3/uL RBC (4.20-5.50) X10*6/uL Hgb (12.0-16.0) g/dl Hct (37.0-47.0) % MCV (80.0-98.0) fL MCH (27.0-33.0) pg MCHC (31.0-35.0) g/dl RDW (11.0-16.0) % Plt Count (160-400) X10*3/uL MPV (9.4-12.3) fL Immature Gran % (Auto) (0.0-0.4) % Neut % (Auto) (45-73) % Lymph % (Auto) (20-40) % [place] % (Auto) (2-11) % Eos % (Auto) (0-4) % Baso % (Auto) (0-2) % Lymph # (Auto) (1.2-4.9) X10*3/uL [place] # (Auto) (0.1-1.2) X10*3/uL Eos # (Auto) (0.0-0.4) X10*3/uL Baso # (Auto) (0.0-0.2) X10*3/uL Abs Immat Gran (auto) (0.00-0.03) X10*3/uL Absolute Neuts (auto) (2.0-8.3) x10*3/uL Absolute Nucleated RBC (0.0-0.012) X10*3/uL Nucleated RBC % (auto) (0.0-0.2) /100WBC PT (11.1-13.3) SEC INR (0.9-1.1) Sodium (135-145) mmol/L Potassium (3.3-5.1) mmol/L Chloride (96-108) mmol/L Carbon Dioxide (22-29) mmol/L Anion Gap (12-20) BUN (9-16) mg/dL Creatinine (0.5-1.4) mg/dL Estim Creat Clear Calc Estimated GFR Random Glucose (60-115) mg/dL Calcium (8.4-10.2) mg/dL Total Bilirubin (0.0-1.0) mg/dL AST (5-31) U/L ALT (0-31) U/L Alkaline Phosphatase (39-117) U/L Troponin I High Sens < 2.7 (<3.5-17.0) ng/L Total Protein (6.5-8.0) g/dL Albumin (3.5-5.0) g/dL Independent Interpretation I performed an independent interpretation of an: EKG, Plain X-Ray (no fracture seen) and Ultrasound (no DVT seen ) Interpretation: Rate: 72 Rhythm: NSR Cassandra: left , LVH Normal P waves. Normal JAMES. Normal QRS complex. ST T wave : normal no JHON, inverted T wave V1 qTC: normal prior studies: no acute ischemia The study has been interpreted contemporaneously by me. Radiology Impression Discussion of test interpretation with radiology: I have reviewed the radiologist's reading. Radiologist Impression: no DVT, no fracture Independent Historian Clinical information obtained from an independent historian. History obtained from or confirmed by: Spouse (bedside history as well) External Record Review External record reviewed: Inpatient record and Prior outpatient labs hx of carpal tunnel in R wrist in past per ortho notes Prescription Management I considered prescription management with: Pain Medication and Other (prednisone increase to 40mg for 3 days then back to 10mg daily) increase oxycodone to 10mg TID for 3 days Chronic Conditions Patient?s care impacted by: Other arthritis Discharge Plan Discharge Clinical Impression: Hand pain, left, Acute carpal tunnel syndrome of left wrist Patient Disposition: Home, Self-Care Instructions: Arthralgia (ED) Additional Instructions: increase your prednisone to 40mg starting tomorrow for 3 days. wear splint for 1 week until improved keep elevated. increase oxycodone for pain to 10mg three times a day for 3 days. return for worsening pain, redness, fevers, numb hand, cold hand or any other concerns. call to schedule an appointment with orthopedics aumente kessler prednisona a 40 mg a partir de ma?ngoc terese 3 d?as. use f?sindhu terees 1 semana hasta que mejore mant?ngase elevado. aumente la oxicodona para el dolor a 10 mg bebeto veces al d?a terese 3 d?as. regrese por empeoramiento del dolor, enrojecimiento, fiebre, mano entumecida, mano fr?a o cualquier otra inquietud. llame para programar moira jose david con [employer] Prescriptions: New prednisone 20 mg tablet 40 mg PO DAILY 3 Days Qty: 6 0RF oxycodone 10 mg tablet 10 mg PO TID PRN (Reason: pain) Qty: 9 0RF Rx Instructions: Partial Fill upon patient request. aware of other prescriptions acute pain management No Action (DME) adhesive bandage 1 bandage See Rx Instructions .ROUTE .MEDSUPPLY Qty: 20 5RF Rx Instructions: Use after Methotrexate injection Incruse Ellipta 62.5 mcg/actuation blister with device 1 inh PO DAILY Qty: 30 6RF ascorbate calcium (vitamin C) 500 mg tablet 1 g PO DAILY 90 Days Qty: 180 2RF vitamin A palmitate 3,000 mcg (10,000 unit) tablet 10,000 unit PO DAILY Qty: 90 1RF methotrexate sodium 2.5 mg tablet 20 mg PO QWEEK Qty: 32 2RF folic acid 1 mg tablet 1 mg PO QAM Qty: 90 2RF cholecalciferol (vitamin D3) [Vitamin D3] 25 mcg (1,000 unit) capsule 25 mcg PO QAM Qty: 90 2RF gabapentin 400 mg capsule 400 mg PO TID trazodone 150 mg tablet 1 tab PO BEDTIME PRN (Reason: Sleep) risperidone 1 mg tablet 0.5 mg PO DAILY PRN (Reason: Agitation) diclofenac sodium 1 % gel 4 g topical QID Qty: 100 0RF Rx Instructions: apply to single knee, ankle, foot; for foot includes sole/toes/top of foot famotidine 20 mg tablet 1 tab PO BID@1200,2100 ferrous sulfate [FeroSul] 325 mg (65 mg iron) tablet 1 tab PO QAM albuterol sulfate [ProAir HFA] 90 mcg/actuation HFA aerosol inhaler 2 puff PO Q4-6H PRN (Reason: Wheezing) duloxetine 60 mg capsule,delayed release(DR/EC) 1 cap PO BID ursodiol 500 mg tablet 500 mg PO BID Qty: 90 1RF cyclobenzaprine 10 mg tablet 10 mg PO TID PRN (Reason: muscle spasm) Qty: 10 0RF lidocaine [Lidoderm] 5 % adhesive patch,medicated 1 patch topical DAILY Qty: 15 0RF Rx Instructions: leave on most painful area for up to 12 hrs nystatin 100,000 unit/gram powder 1 appl topical BID Qty: 30 0RF oxycodone 5 mg capsule 5 mg PO BID PRN (Reason: pain) Qty: 6 0RF Rx Instructions: Partial Fill upon patient request. cephalexin 500 mg tablet 500 mg PO Q6H 10 Days Qty: 40 0RF prednisone 10 mg tablet 10 mg PO DIRECTED Qty: 36 0RF Rx Instructions: Take 4 tablets for 4 days THEN; Take 3 tablets for 4 days THEN; Take 2 tablets for 4 days THEN; Return to 1 tablets per day oxycodone-acetaminophen 5-325 mg tablet 1 tab PO Q8H PRN (Reason: pain) docusate sodium 100 mg capsule 100 mg PO BEDTIME PRN (Reason: Constipation) hydrochlorothiazide 12.5 mg tablet 12.5 mg PO DAILY hydrocortisone 2.5 % cream topical BID alprazolam 1 mg tablet 1 mg PO BEDTIME PRN (Reason: Anxiety) naloxone 4 mg/actuation spray,non-aerosol 0 spray intranasal PRN (Reason: Opiate Reversal) nicotine 21 mg/24 hr patch 24 hour 0 patch topical Eliquis 5 mg tablet 5 mg PO BID acetaminophen 500 mg tablet 500 - 1,000 mg PO Q8-10H PRN (Reason: pain) Qty: 100 4RF benztropine 0.5 mg tablet 0.5 mg PO QAM sertraline 50 mg tablet 0 mg PO pantoprazole 40 mg tablet,delayed release (DR/EC) 40 mg PO DAILY Qty: 90 1RF Referrals: Becky Card MD [Physician] - 2 weeks Interventions: ED Discharge Assessment Last Done: 03/04/23 16:27 Discharge Date/Time: 03/04/23 16:45
[2023-03-04 12:38] LABS: MANUAL DIFF FLAG NO
[2023-03-04 12:40] LABS: Basophils Percent Auto 0.3 % (0-2); Eosinophils Percent Auto 0.6 % (0-4); Hematocrit 36.8 % (37.0-47.0); Hemoglobin 11.9 g/dl (12.0-16.0); Imm Gran Abs Auto 0.01 X10*3/uL (0.00-0.03); Imm Gran Pct Auto 0.2 % (0.0-0.4); Lymphocytes Absolute Auto 1.7 X10*3/uL (1.2-4.9); Lymphocytes Percent Auto 26.5 % (20-40); Mean Corpuscular HGB Conc 32.3 g/dl (31.0-35.0); Mean Corpuscular Hemoglobin 30.7 pg (27.0-33.0); Mean Corpuscular Volume 95.1 fL (80.0-98.0); Mean Platelet Volume 9.8 fL (9.4-12.3); Monocytes Absolute Auto 0.4 X10*3/uL (0.1-1.2); Monocytes Percent Auto 5.9 % (2-11); Neutrophils Absolute Auto 4.3 x10*3/uL (2.0-8.3); Neutrophils Percent Auto 66.5 % (45-73); Platelet Count 269 X10*3/uL (160-400); Red Blood Count 3.87 X10*6/uL (4.20-5.50); Red Cell Distribution Width 13.6 % (11.0-16.0); White Blood Count 6.5 X10*3/uL (4.8-10.8)
[2023-03-04 12:47] LABS: INTERNATIONAL NORM RATIO 1.2 (0.9-1.1); Prothrombin Time 14.6 SEC (11.1-13.3)
[2023-03-04 13:21] LABS: Alanine Aminotransferase 12 U/L (0-31); Albumin Level 4.2 g/dL (3.5-5.0); Alkaline Phosphatase 70 U/L (39-117); Aspartate Amino Transferase 16 U/L (5-31); Bilirubin Total 0.4 mg/dL (0.0-1.0); Blood Urea Nitrogen 14 mg/dL (9-16); Calcium 10.4 mg/dL (8.4-10.2); Carbon Dioxide 22 mmol/L (22-29); Chloride 106 mmol/L (96-108); Creatinine Clr Calc Pharmacy 94.2; Estimated Glomerular Filt Rate > 60; Glucose Random 89 mg/dL (60-115); Potassium 3.9 mmol/L (3.3-5.1); Sodium 139 mmol/L (135-145)
[2023-03-04 13:22] LABS: Troponin-I High Sensitivity < 2.7 ng/L (<3.5-17.0)
[2023-03-04 13:28] LABS: Anion Gap 17 (12-20)
[2023-03-04 14:39] VITALS: BP 119/53; PULSE 74; RESP 18; TEMP 36.7; O2SAT 97
--- NOTE | 2023-03-04 14:44 | PC.NURSE ---
pt a&ox3, vss, pt coming in d/t 10/10 left extremity pain. pt verbalizes that pain and contractions to her fingers started yesterday. no specific onset. pt states that she woke up to the pain and could not move her fingers. left hand/lower extremity tender and warm to the touch. CMS intact but slightly diminished. radial pulse palpable. call cardona placed within reach. will continue to monitor.
[2023-03-04] MEDS: oxyCODONE HCl Immed Release 5 MG TABLET PO (15:55)
--- NOTE | 2023-03-04 15:56 | PC.NURSE ---
medication administered per provider order. provider bedside speaking with patient.
--- NOTE | 2023-03-04 16:30 | PC.NURSE ---
report given to S3 RN.
== END 2023-03-04 16:45 | disposition home or self-care (01) ==
PROVIDERS: Registered Nurse Emergency; Emergency Provider Emergency Medicine
DX: M79.642 Pain in left hand (principal); G56.02 Carpal tunnel syndrome, left upper limb; M05.9 Rheumatoid arthritis with rheumatoid factor, unspecified; M32.9 Systemic lupus erythematosus, unspecified; Z86.718 Personal history of other venous thrombosis and embolism; Z79.899 Other long term (current) drug therapy; Z79.01 Long term (current) use of anticoagulants
CPT/HCPCS: 36415; 73130; 80053; 84484; 85025; 85610; 93005; 93971; 99284; 99285

== ENCOUNTER → 2023-03-04 12:02 | Outpatient (BNV) | payer MEDICAID, SELFPAY | PROVIDERS: Emergency Provider Emergency Medicine; Visit Provider Internal Medicine | DX: I44.4 Left anterior fascicular block (principal) | CPT/HCPCS: 93010 ==

== ENCOUNTER 2023-03-07 12:19 | Emergency (ER) | payer MEDICAID, SELFPAY ==
--- NOTE | ~2023-03-07 | CT_ITS ---
EXAMINATION: CT CERVICAL SPINE WITHOUT CONTRAST CLINICAL INFORMATION: Status post fall with head strike and pain. COMPARISON: None available. TECHNIQUE: Multiple axial images of the cervical spine were obtained without the administration of intravenous contrast. Coronal and sagittal reformatted images were obtained. This CT examination was performed using dose optimization techniques as appropriate, variously including the following: *Automated exposure control *Adjustment of mA and/or kV according to patient size (this includes techniques or standardized protocols for targeted exams where dose is matched to indication/reason for exam; i.e. extremities or head) *Use of iterative reconstruction technique DLP: 340.72 mGy-cm FINDINGS: There is mild reversal the normal cervical lordosis with normal spinal alignment. Mild anterior osteophyte formation is seen from C4-C5 to C6-C7. No acute fracture. The odontoid process is intact. The neural foramina are patent. The facet joints are unremarkable. The spinous and transverse processes are intact. The cervical soft tissues are unremarkable. There is no lymphadenopathy. The visualized thyroid gland is unremarkable. Visualized lung apices are clear. CT/CT cervical spine wo IV con IMPRESSION: Mild reversal the normal cervical lordosis may be secondary to positioning and/or muscle spasm. No acute abnormality.
--- NOTE | ~2023-03-07 | XR_ITS ---
EXAMINATION: XR CHEST CLINICAL INFORMATION: Syncope. COMPARISON: Chest radiograph dated 11/10/2022. TECHNIQUE: 2 views of the chest were obtained. FINDINGS: No significant abnormality is noted involving the heart, lungs, mediastinum, bony thorax or soft tissues. XR/XR chest 2V IMPRESSION: No acute cardiopulmonary process.
--- NOTE | ~2023-03-07 | CT_ITS ---
EXAMINATION: CT HEAD WITHOUT CONTRAST CLINICAL INFORMATION: Status post fall with head strike. COMPARISON: Head CT scan dated 06/19/2022. TECHNIQUE: Contiguous axial imaging was performed from the skull base to vertex without intravenous administration of contrast. Coronal and sagittal reformatted images were obtained. This CT examination was performed using dose optimization techniques as appropriate, variously including the following: *Automated exposure control *Adjustment of mA and/or kV according to patient size (this includes techniques or standardized protocols for targeted exams where dose is matched to indication/reason for exam; i.e. extremities or head) *Use of iterative reconstruction technique DLP: 521.02 mGy-cm FINDINGS: The cortical sulci are normal. The lateral ventricles are symmetrical. The third and fourth ventricles are in their normal midline position. The basilar and prepontine cisterns are unremarkable. There is no acute intra or extracerebral abnormality. There is no mass effect or midline shift. Sections through the bony calvarium are unremarkable. The paranasal sinuses are clear. The bony orbits and orbital contents are unremarkable. CT/CT head/brain wo IV con IMPRESSION: No acute intracranial pathology.
[2023-03-07 12:58] VITALS: BP 136/72; PULSE 66; RESP 16; TEMP 36; O2SAT 95; BMI 28.2
--- NOTE | 2023-03-07 12:59 | ED_ITS ---
HPI - General Adult General Chief complaint: Syncope Stated complaint: fainted low bp sent in by clinic Time Seen by Provider: 03/07/23 20:22 Source: patient and authorization nurse Mode of arrival: ambulatory Limitations: language barrier History of Present Illness HPI narrative: Patient is a 47 year old assigned female at with a history of RA and lupus presenting to the emergency department today after a syncopal episode. Patient states that she passed out but felt it coming on. Patient states that she did fall and believes she hit her head. Patient denies any current dizziness, lightheadedness, abdominal pain, nausea, vomiting, fever, chills, blurry vision, double vision, loss of vision, chest pain, difficulty breathing, shortness of breath, back pain, night sweats, pain with urination, increased urinary f requency, increased urinary urgency, blood in her urine or stool, bowel incontinence, bladder incontinence, bowel retention, bladder retention, or any other complaints at this time. Onset (ago): minute(s) Relieving factors: none Exacerbating factors: none Associated symptoms: syncope Treatments prior to arrival: none Related Data Home Medications Medication Instructions Recorded Confirmed albuterol sulfate 90 mcg/actuation 2 puff PO Q4-6H PRN Wheezing 10/02/21 02/10/23 aerosol inhaler (ProAir HFA) duloxetine 60 mg capsule,delayed 1 cap PO BID 10/02/21 02/10/23 release famotidine 20 mg tablet 1 tab PO BID@1200,2100 10/02/21 02/10/23 ferrous sulfate 325 mg (65 mg 1 tab PO QAM 10/02/21 02/10/23 iron) tablet (FeroSul) gabapentin 400 mg capsule 400 mg PO TID 10/22/21 02/10/23 risperidone 1 mg tablet 0.5 mg PO DAILY PRN Agitation 10/22/21 02/10/23 trazodone 150 mg tablet 1 tab PO BEDTIME PRN Sleep 10/22/21 02/10/23 hydrochlorothiazide 12.5 mg tablet 12.5 mg PO DAILY 03/02/22 02/10/23 docusate sodium 100 mg capsule 100 mg PO BEDTIME PRN Constipation 04/19/22 02/10/23 oxycodone-acetaminophen 5 mg-325 1 tab PO Q8H PRN pain 04/19/22 02/10/23 mg tablet apixaban 5 mg tablet (Eliquis) 5 mg PO BID 09/22/22 02/10/23 alprazolam 1 mg tablet 1 mg PO BEDTIME PRN Anxiety 12/10/22 02/10/23 hydrocortisone 2.5 % topical cream appl topical BID 12/10/22 02/10/23 naloxone 4 mg/actuation nasal spray 0 spray intranasal PRN Opiate 12/10/22 02/10/23 Reversal nicotine 21 mg/24 hr daily 0 patch topical 12/10/22 02/10/23 transdermal patch benztropine 0.5 mg tablet 0.5 mg PO QAM 01/17/23 02/10/23 sertraline 50 mg tablet 0 mg PO 01/17/23 02/10/23 Previous Rx's Medication Instructions Recorded adhesive bandage 1 #20 ea 05/21/20 ursodiol 500 mg tablet 500 mg PO BID #90 tabs 10/08/21 diclofenac sodium 1 % topical gel 4 g topical QID #100 grams 03/28/22 cyclobenzaprine 10 mg tablet 10 mg PO TID PRN muscle spasm #10 08/20/22 tabs lidocaine 5 % topical patch 1 patch topical DAILY #15 ea 08/20/22 (Lidoderm) acetaminophen 500 mg tablet 500 - 1,000 mg PO Q8-10H PRN pain 09/22/22 #100 tabs nystatin 100,000 unit/gram topical 1 appl topical BID #30 grams 11/10/22 powder oxycodone 5 mg capsule 5 mg PO BID PRN pain #6 caps 11/22/22 umeclidinium 62.5 mcg/actuation 1 inh PO DAILY #30 ea 11/29/22 blister powder for inhalation (Incruse Ellipta) prednisone 10 mg tablet 10 mg PO DIRECTED #36 tabs 12/14/22 ascorbate calcium (vitamin C) 500 1 g PO DAILY 90 days #180 tabs 12/21/22 mg tablet vitamin A palmitate 3,000 mcg 10,000 unit PO DAILY #90 tabs 12/21/22 (10,000 unit) tablet cephalexin 500 mg tablet 500 mg PO Q6H 10 days #40 tabs 01/10/23 pantoprazole 40 mg tablet,delayed 40 mg PO DAILY #90 tabs 01/17/23 release methotrexate sodium 2.5 mg tablet 20 mg PO QWEEK #32 tabs 01/24/23 folic acid 1 mg tablet 1 mg PO QAM #90 tabs 01/31/23 cholecalciferol (vitamin D3) 25 25 mcg PO QAM #90 caps 02/28/23 mcg (1,000 unit) capsule (Vitamin D3) oxycodone 10 mg tablet 10 mg PO TID PRN pain #9 tabs 03/04/23 prednisone 20 mg tablet 40 mg PO DAILY 3 days #6 tabs 03/04/23 Allergies Allergy/AdvReac Type Severity Reaction Status Date / Time almond [ALMONDS] Allergy Severe ANAPHYLAXIS Verified 03/07/23 13:05 adhesive tape [ADHESIVE TAPE] Allergy Intermediate RASH Verified 03/07/23 13:05 morphine [MORPHINE] Allergy Intermediate GI UPSET, Verified 03/07/23 13:05 difficulty breathing tramadol [TRAMADOL] AdvReac Unknown NAUSEA & Verified 03/07/23 13:05 VOMITING Review of Systems Constitutional: Constitutional: Reports no additional constitutional complaints, Denies chills, Denies fever(s) and Denies night sweats Eyes: Eyes: Reports no additional eye complaints, Denies blurry vision, Denies change in vision, Denies diplopia, Denies eye discharge, Denies loss of vision and Denies eye pain ENT: Denies dizziness Cardiovascular: Cardiovascular: Reports no additional cardiovascular complaints, Denies chest pain, Reports syncope, Denies lightheadedness, Denies Loss of Consciousness and Denies dyspnea Respiratory: Respiratory: Reports no additional respiratory complaints and Denies dyspnea Gastrointestinal: Gastrointestinal: Reports no additional gastrointestinal complaints, Denies abdominal pain, Denies melena, Denies hematochezia, Denies change in bowel habits and Denies change in stool character Genitourinary: Genitourinary: Denies hematuria, Denies urinary frequency, Denies dysuria, Denies urinary incontinence, Denies urinary hesitancy and Denies urinary urgency Musculoskeletal: Musculoskeletal: Reports no additional musculoskeletal co mplaints, Denies numbness and Denies tingling Neurologic: Denies dizziness, Reports syncope, Denies loss of vision, Denies numbness and Denies tingling Psychiatric: Psychiatric: Reports no additional psychiatric complaints Endocrine: Endocrine: Reports no additional endocrine complaints Hematologic/Lymphatic: Hematologic/Lymphatic: Reports no additional hematologic/lymphatic complaints Allergic/Immunologic: Allergic/Immunologic: Reports no additional allergic/immunologic complaints PMFSH Past Medical History Attestation statement: The following information was validated with the patient. Source: old records reviewed and nursing notes reviewed Medical History Acute arthritis Bleeding hemorrhoid Bone cancer Cancer of heart Chronic GERD De Quervain's disease (tenosynovitis) Degeneration of intervertebral disc at C4-C5 level Degeneration, intervertebral disc, lumbar Depression Depressive disorder Esophageal dysphagia Fibromyalgia Gallstones History of chemotherapy Hodgkin disease Hx of peripheral pulmonary artery stenosis Lung cancer Nocturia Osteoarthritis of spine with radiculopathy, lumbar region Rheumatoid arthritis involving multiple sites Seropositive rheumatoid arthritis Stress incontinence in female Systemic lupus erythematosus Urgency-frequency syndrome Vitamin D deficiency Surgical History H/O tubal ligation History of angioplasty of vein History of biopsy History of esophagogastroduodenoscopy (EGD) History of lymph node dissection of left axilla History of repair of inguinal hernia Hx laparoscopic cholecystectomy Hx of colonoscopy Hx of endoscopy Family History Family History Maternal Grandmother Ovarian cancer Social History Social History Household Members: Spouse Housing: Apartment Are you a primary nursing care partner to a significant other at home: No Do 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 have 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 or other home services: Yes (bi technical 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 Physical Exam ED Vital Signs: Vital Signs - 24 hr 03/07/23 12:58 Temperature 96.8 F Pulse Rate 66 Respiratory Rate 16 Blood Pressure 136/72 Pulse Oximetry 95 Oxygen Delivery Method Room Air BMI result Body Mass Index 28.2 Const General: cooperative, no acute distress, alert and awake Nutritional Appearance: well nourished Orientation/consciousness: patient oriented x3 Limitations: no limitations HENMT Head: Yes normal to inspection and Yes atraumatic Ears: hearing grossly normal bilaterally and external ears normal General nose exam: Normal external nose present, no nasal discharge noted and no epistaxis Face and sinus: Yes normal facial exam, No abrasion and No laceration Mouth: Normal oral and palatal mucosa present, no drooling and no muffled voice Eyes General: appearance normal, both eyes and all related structures Periorbital: periorbital findings normal Eyelids: Yes eyelids normal Conjunctivae: conjunctivae normal Pupils: Equal, round and reactive pupils present EOM: EOMs intact bilaterally Neck Neck: Yes normal visual inspection, Yes full ROM and Yes no lymphadenopathy Chest Chest palpation & inspection: normal inspection of the chest Resp Effort & Inspection: normal respiratory effort and able to speak in complete sentences GI Inspection: Yes normal to inspection Neuro General: patient oriented x3 and moves all extremities Cranial nerves: Yes Equal, round and reactive pupils present Cognition (Neuro): normal cognition Motor exam (neuro): 5/5 motor strength present throughout Sensory Exam: Normal double simultaneous stimulation for sensation Coordination: [id number]-[id number] test normal Extrem General: Yes normal to inspection, Yes full ROM and Yes capillary refill normal Psych Appearance: grossly normal Mental Status: mental status grossly normal Affect: normal affect Attitude: cooperative Thought process: Normal thought process present Thought content: Normal thought content present Insight: Good insight present (Psych) Course Course Course Narrative: RME performed by Tessa Olguin PA-C. Patient is a 47 year old assigned female at presenting to the emergency department after a syncopal episode. Labs ordered. Patient placed back in the waiting room pending room availability and results. Medical Decision Making Medical Decision Making MDM Narrative: Patient is a 47 year old assigned female at with a history of RA and lupus presenting to the emergency department today after a syncopal episode. Patient's limited physical exam performed in triage was unremarkable. Patient's blood work was unremarkable. Patient's EKG was unremarkable. Patient's chest x- ray, head CT, and C-Spine CT showed no acute process. Patient eloped from the department before myself or any other emergency department provider could perform a more thorough physical examination, explain her physical exam findings, explain test results, discuss need or lack thereof for further work up, or any treatment / treatment plans. Differential Diagnosis Differential Diagnoses: The differential diagnosis associated with the presentation includes Syncope Admission/Observation Consideration of admission/observation: Escalation of care including adm ission/observation considered Patient would have been admitted to the hospital had her work up had any findings where hospital admission was appropriate, her clinical presentation warranted hospital admission, and she had not eloped from the department. Lab Data MDM Lab Attestation statement: I reviewed the patient's lab results. My interpretation of these studies and their corresponding values is that they are grossly normal. 03/07/23 13:14 03/07/23 13:14 Labs: Lab Results 03/07/23 03/07/23 03/07/23 Range/Units 13:14 13:14 13:14 WBC 10.0 (4.8-10.8) X10*3/uL RBC 3.90 L (4.20-5.50) X10*6/uL Hgb 12.0 (12.0-16.0) g/dl Hct 37.4 (37.0-47.0) % MCV 95.9 (80.0-98.0) fL MCH 30.8 (27.0-33.0) pg MCHC 32.1 (31.0-35.0) g/dl RDW 13.4 (11.0-16.0) % Plt Count 276 (160-400) X10*3/uL MPV 10.0 (9.4-12.3) fL Immature Gran % (Auto) 0.3 (0.0-0.4) % Neut % (Auto) 64.9 (45-73) % Lymph % (Auto) 29.4 (20-40) % [place] % (Auto) 4.9 (2-11) % Eos % (Auto) 0.3 (0-4) % Baso % (Auto) 0.2 (0-2) % Lymph # (Auto) 3.0 (1.2-4.9) X10*3/uL [place] # (Auto) 0.5 (0.1-1.2) X10*3/uL Eos # (Auto) 0.0 (0.0-0.4) X10*3/uL Baso # (Auto) 0.0 (0.0-0.2) X10*3/uL Abs Immat Gran (auto) 0.03 (0.00-0.03) X10*3/uL Absolute Neuts (auto) 6.5 (2.0-8.3) x10*3/uL Absolute Nucleated RBC 0.000 (0.0-0.012) X10*3/uL Nucleated RBC % (auto) 0.0 (0.0-0.2) /100WBC Sodium 141 (135-145) mmol/L Potassium 3.3 (3.3-5.1) mmol/L Chloride 107 (96-108) mmol/L Carbon Dioxide 22 (22-29) mmol/L Anion Gap 15 (12-20) BUN 15 (9-16) mg/dL Creatinine 0.84 (0.5-1.4) mg/dL Estim Creat Clear Calc 88.9 Estimated GFR > 60 Random Glucose 93 (60-115) mg/dL Calcium 9.7 D (8.4-10.2) mg/dL Magnesium 2.3 (1.6-2.6) mg/dL Total Bilirubin 0.3 (0.0-1.0) mg/dL AST 18 (5-31) U/L ALT 14 (0-31) U/L Alkaline Phosphatase 66 (39-117) U/L Troponin I High Sens 2.8 (<3.5-17.0) ng/L Total Protein 9.0 H (6.5-8.0) g/dL Albumin 4.1 (3.5-5.0) g/dL Independent Interpretation I performed an independent interpretation of an: EKG, Plain X-Ray and CT Scan Interpretation: My interpretation is in agreement with the radiologist's impression of these imaging studies. ---- EXAMINATION: CT HEAD WITHOUT CONTRAST CLINICAL INFORMATION: Status post fall with head strike.? COMPARISON: Head CT scan dated 06/19/2022. TECHNIQUE: Contiguous axial imaging was performed from the skull base to vertex without intravenous administration of contrast. Coronal and sagittal reformatted images were obtained. This CT examination was performed using dose optimization techniques as appropriate, variously including the following: *Automated exposure control *Adjustment of mA and/or kV according to patient size (this includes techniques or standardized protocols for targeted exams where dose is matched to indication/reason for exam; i.e. extremities or head) *Use of iterative reconstruction technique DLP: 521.02 mGy-cm FINDINGS: The cortical sulci are normal. The lateral ventricles are symmetrical. The third and fourth ventricles are in their normal midline position. The basilar and prepontine cisterns are unremarkable. There is no acute intra or extracerebral abnormality. There is no mass effect or midline shift. Sections through the bony calvarium are unremarkable. The paranasal sinuses are clear. The bony orbits and orbital contents are unremarkable. CT/CT head/brain wo IV con IMPRESSION: No acute intracranial pathology. Dictated By: Roderick Ferguson MD Signed By: Electronically signed by Roderick Ferguson MD 03/07/23 1404 EXAMINATION: CT CERVICAL SPINE WITHOUT CONTRAST CLINICAL INFORMATION: Status post fall with head strike and pain.? COMPARISON: None available. TECHNIQUE: Multiple axial images of the cervical spine were obtained without the administration of intravenous contrast. Coronal and sagittal reformatted images were obtained.? This CT examination was performed using dose optimization techniques as appropriate, variously including the following: *Automated exposure control *Adjustment of mA and/or kV according to patient size (this includes techniques or standardized protocols for targeted exams where dose is matched to indication/reason for exam; i.e. extremities or head) *Use of iterative reconstruction technique DLP: 340.72 mGy-cm FINDINGS: There is mild reversal the normal cervical lordosis with normal spinal alignment. Mild anterior osteophyte formation is seen from C4-C5 to C6-C7. No acute fracture. The odontoid process is intact. The neural foramina are patent. The facet joints are unremarkable. The spinous and transverse processes are intact. The cervical soft tissues are unremarkable. There is no lymphadenopathy. The visualized thyroid gland is unremarkable. Visualized lung apices are clear. CT/CT cervical spine wo IV con IMPRESSION: Mild reversal the normal cervical lordosis may be secondary to positioning and/or muscle spasm. No acute abnormality. Dictated By: Roderick Ferguson MD Signed By: Electronically signed by Roderick Ferguson MD 03/07/23 1406 EXAMINATION: XR CHEST CLINICAL INFORMATION: Syncope. COMPARISON: Chest radiograph dated 11/10/2022. TECHNIQUE: 2 views of the chest were obtained. FINDINGS: No significant abnormality is noted involving the heart, lungs, mediastinum, bony thorax or soft tissues. XR/XR chest 2V IMPRESSION: No acute cardiopulmonary process. Dictated By: Roderick Ferguson MD Signed By: Electronically signed by Roderick Ferguson MD 03/07/23 1335 Vent. Rate: 055 BPM ? ? Atrial Rate: 055 BPM P-R Int: 170 ms? QRS Dur: 112 ms QT Int: 422 ms ? ? ? P-R-T Axes: 052 -54 048 degrees QTc Int: 403 ms ? Sinus bradycardia with sinus arrhythmia Left anterior fascicular block Left ventricular hypertrophy ( R in aVL , [place] product , Romhilt-Mason ) Cannot rule out Septal infarct (cited on or before 10-NOV-2022) Abnormal ECG When compared with ECG of 04-MAR-2023 12:06, Questionable change in initial forces of Septal leads Referred By: Tessa Olguin ? Electronically Signed By:Ruddy Larios Dictated By: Ruddy Larios MD Signed By: Electronically signed by Ruddy Larios MD 03/08/23 1389 Discharge Plan Discharge Clinical Impression: Syncope Patient Disposition: Elopement Prescriptions: No Action (DME) adhesive bandage 1 bandage See Rx Instructions .ROUTE .MEDSUPPLY Qty: 20 5RF Rx Instructions: Use after Methotrexate injection Incruse Ellipta 62.5 mcg/actuation blister with device 1 inh PO DAILY Qty: 30 6RF ascorbate calcium (vitamin C) 500 mg tablet 1 g PO DAILY 90 Days Qty: 180 2RF vitamin A palmitate 3,000 mcg (10,000 unit) tablet 10,000 unit PO DAILY Qty: 90 1RF methotrexate sodium 2.5 mg tablet 20 mg PO QWEEK Qty: 32 2RF folic acid 1 mg tablet 1 mg PO QAM Qty: 90 2RF cholecalciferol (vitamin D3) [Vitamin D3] 25 mcg (1,000 unit) capsule 25 mcg PO QAM Qty: 90 2RF gabapentin 400 mg capsule 400 mg PO TID trazodone 150 mg tablet 1 tab PO BEDTIME PRN (Reason: Sleep) risperidone 1 mg tablet 0.5 mg PO DAILY PRN (Reason: Agitation) diclofenac sodium 1 % gel 4 g topical QID Qty: 100 0RF Rx Instructions: apply to single knee, ankle, foot; for foot includes sole/toes/top of foot famotidine 20 mg tablet 1 tab PO BID@1200,2100 ferrous sulfate [FeroSul] 325 mg (65 mg iron) tablet 1 tab PO QAM albuterol sulfate [ProAir HFA] 90 mcg/actuation HFA aerosol inhaler 2 puff PO Q4-6H PRN (Reason: Wheezing) duloxetine 60 mg capsule,delayed release(DR/EC) 1 cap PO BID ursodiol 500 mg tablet 500 mg PO BID Qty: 90 1RF cyclobenzaprine 10 mg tablet 10 mg PO TID PRN (Reason: muscle spasm) Qty: 10 0RF lidocaine [Lidoderm] 5 % adhesive patch,medicated 1 patch topical DAILY Qty: 15 0RF Rx Instructions: leave on most painful area for up to 12 hrs nystatin 100,000 unit/gram powder 1 appl topical BID Qty: 30 0RF oxycodone 5 mg capsule 5 mg PO BID PRN (Reason: pain) Qty: 6 0RF Rx Instructions: Partial Fill upon patient request. cephalexin 500 mg tablet 500 mg PO Q6H 10 Days Qty: 40 0RF prednisone 10 mg tablet 10 mg PO DIRECTED Qty: 36 0RF Rx Instructions: Take 4 tablets for 4 days THEN; Take 3 tablets for 4 days THEN; Take 2 tablets for 4 days THEN; Return to 1 tablets per day prednisone 20 mg tablet 40 mg PO DAILY 3 Days Qty: 6 0RF oxycodone 10 mg tablet 10 mg PO TID PRN (Reason: pain) Qty: 9 0RF Rx Instructions: Partial Fill upon patient request. aware of other prescriptions acute pain management oxycodone-acetaminophen 5-325 mg tablet 1 tab PO Q8H PRN (Reason: pain) docusate sodium 100 mg capsule 100 mg PO BEDTIME PRN (Reason: Constipation) hydrochlorothiazide 12.5 mg tablet 12.5 mg PO DAILY hydrocortisone 2.5 % cream topical BID alprazolam 1 mg tablet 1 mg PO BEDTIME PRN (Reason: Anxiety) naloxone 4 mg/actuation spray,non-aerosol 0 spray intranasal PRN (Reason: Opiate Reversal) nicotine 21 mg/24 hr patch 24 hour 0 patch topical Eliquis 5 mg tablet 5 mg PO BID acetaminophen 500 mg tablet 500 - 1,000 mg PO Q8-10H PRN (Reason: pain) Qty: 100 4RF benztropine 0.5 mg tablet 0.5 mg PO QAM sertraline 50 mg tablet 0 mg PO pantoprazole 40 mg tablet,delayed release (DR/EC) 40 mg PO DAILY Qty: 90 1RF Discharge Date/Time: 03/07/23 20:26
--- NOTE | 2023-03-07 12:59 | ECG_ITS ---
Test Reason : syncope Blood Pressure : / mmHG Vent. Rate : 055 BPM Atrial Rate : 055 BPM P-R Int : 170 ms QRS Dur : 112 ms QT Int : 422 ms P-R-T Axes : 052 -54 048 degrees QTc Int : 403 ms Sinus bradycardia with sinus arrhythmia Left anterior fascicular block Left ventricular hypertrophy ( R in aVL , [place] product , Romhilt-[place]ason ) Cannot rule out Septal infarct (cited on or before 10-NOV-2022) Abnormal ECG When compared with ECG of 04-MAR-2023 12:06, Questionable change in initial forces of Septal leads Referred By: Tessa Olguin Electronically Signed By:Ruddy Larios
--- NOTE | 2023-03-07 13:16 | MHC.EDTECH ---
EKG completed and signed by attending. Labs drawn and sent
[2023-03-07 13:21] LABS: MANUAL DIFF FLAG NO
[2023-03-07 13:22] LABS: Basophils Percent Auto 0.2 % (0-2); Eosinophils Percent Auto 0.3 % (0-4); Hematocrit 37.4 % (37.0-47.0); Imm Gran Abs Auto 0.03 X10*3/uL (0.00-0.03); Imm Gran Pct Auto 0.3 % (0.0-0.4); Lymphocytes Percent Auto 29.4 % (20-40); Mean Corpuscular HGB Conc 32.1 g/dl (31.0-35.0); Mean Corpuscular Hemoglobin 30.8 pg (27.0-33.0); Mean Corpuscular Volume 95.9 fL (80.0-98.0); Monocytes Absolute Auto 0.5 X10*3/uL (0.1-1.2); Monocytes Percent Auto 4.9 % (2-11); Neutrophils Absolute Auto 6.5 x10*3/uL (2.0-8.3); Neutrophils Percent Auto 64.9 % (45-73); Platelet Count 276 X10*3/uL (160-400); Red Cell Distribution Width 13.4 % (11.0-16.0)
[2023-03-07 13:39] LABS: Alanine Aminotransferase 14 U/L (0-31); Albumin Level 4.1 g/dL (3.5-5.0); Alkaline Phosphatase 66 U/L (39-117); Anion Gap 15 (12-20); Aspartate Amino Transferase 18 U/L (5-31); Bilirubin Total 0.3 mg/dL (0.0-1.0); Blood Urea Nitrogen 15 mg/dL (9-16); Calcium 9.7 mg/dL (8.4-10.2); Carbon Dioxide 22 mmol/L (22-29); Chloride 107 mmol/L (96-108); Creatinine Clr Calc Pharmacy 88.9; Estimated Glomerular Filt Rate > 60; Glucose Random 93 mg/dL (60-115); Magnesium 2.3 mg/dL (1.6-2.6); Potassium 3.3 mmol/L (3.3-5.1); Sodium 141 mmol/L (135-145)
[2023-03-07 13:46] LABS: Troponin-I High Sensitivity 2.8 ng/L (<3.5-17.0)
== END 2023-03-07 20:26 | disposition left against medical advice (07) ==
PROVIDERS: Physician Assistant Medical; Emergency Provider Emergency Medicine
DX: R55 Syncope and collapse (principal); E61.1 Iron deficiency; C22.9 Malignant neoplasm of liver, not specified as primary or secondary; C79.51 Secondary malignant neoplasm of bone; M05.9 Rheumatoid arthritis with rheumatoid factor, unspecified; Z98.51 Tubal ligation status; Z90.49 Acquired absence of other specified parts of digestive tract; Z86.718 Personal history of other venous thrombosis and embolism; Z79.01 Long term (current) use of anticoagulants; Z79.899 Other long term (current) drug therapy; Z92.21 Personal history of antineoplastic chemotherapy
CPT/HCPCS: 36415; 70450; 71046; 72125; 80053; 83735; 84484; 85025; 93005; 99283; 99284

== ENCOUNTER → 2023-03-07 12:59 | Outpatient (BNV) | payer MEDICAID, SELFPAY | PROVIDERS: Emergency Provider Emergency Medicine; Visit Provider Internal Medicine Cardiovascular Disease | DX: I49.9 Cardiac arrhythmia, unspecified (principal) | CPT/HCPCS: 93010 ==

== ENCOUNTER 2023-03-26 11:47 | Emergency (ER) | payer MEDICAID, SELFPAY ==
--- NOTE | ~2023-03-26 | XR_ITS ---
EXAMINATION: XR CHEST CLINICAL INFORMATION: Weakness COMPARISON: Chest radiograph from 03/07/2023 TECHNIQUE: 2 views of the chest were obtained. FINDINGS: No focal consolidation. No pneumothorax. Trachea is midline. Cardiac mediastinal silhouette is not enlarged. No large pleural effusion. Osseous structures are intact. Surgical clips in the right axilla. Soft tissues are unremarkable. XR/XR chest 2V IMPRESSION: No acute cardiopulmonary process.
--- NOTE | ~2023-03-26 | CT_ITS ---
EXAMINATION: CT HEAD WITHOUT CONTRAST CLINICAL INFORMATION: Headache on eliquis COMPARISON: CT head from 03/07/2023 TECHNIQUE: Contiguous axial imaging was performed from the skull base to vertex without intravenous administration of contrast. This CT examination was performed using dose optimization techniques as appropriate, variously including the following: *Automated exposure control *Adjustment of mA and/or kV according to patient size (this includes techniques or standardized protocols for targeted exams where dose is matched to indication/reason for exam; i.e. extremities or head) *Use of iterative reconstruction technique DLP: 542 mGy-cm FINDINGS: There is no evidence of acute intracranial hemorrhage or territorial infarction. No abnormal mass effect or midline shift is seen. Simon to white matter differentiation is well preserved. No extra-axial fluid collections are identified. The ventricles are normal in size. There is no abnormal attenuation within the brain parenchyma. The osseous structures and soft tissues are normal. The mastoid air cells and visualized portions of the paranasal sinuses are well aerated. CT/CT head/brain wo IV con IMPRESSION: No acute intracranial pathology.
--- NOTE | 2023-03-26 11:48 | ECG_ITS ---
Test Reason : CP Blood Pressure : / mmHG Vent. Rate : 076 BPM Atrial Rate : 076 BPM P-R Int : 152 ms QRS Dur : 108 ms QT Int : 380 ms P-R-T Axes : 068 -54 067 degrees QTc Int : 427 ms Normal sinus rhythm Incomplete right bundle branch block Left anterior fascicular block Moderate voltage criteria for LVH, may be normal variant ( R in aVL , [place] product ) Abnormal ECG When compared with ECG of 07-MAR-2023 13:09, Incomplete right bundle branch block is now Present Minimal criteria for Septal infarct are no longer Present Heart rate has increased Referred By: Liz Montes Electronically Signed By:MARITZA GUAMAN
[2023-03-26 11:49] VITALS: BP 131/83; PULSE 82; RESP 18; TEMP 36.7; O2SAT 100; BMI 30.9
--- NOTE | 2023-03-26 11:49 | ED_ITS ---
HPI - Chest Pain General Chief Complaint: Chest Pain Stated Complaint: chest pain/ back pain Time Seen by Provider: 03/26/23 12:46 Source: patient and family Mode of arrival: ambulatory History of Present Illness HPI narrative: 47-year-old female [facility] and instead wishes to use her family member at bedside. Patient states that she last saw her primary care doctor 5 days ago and is currently undergoing chemotherapy for lupus and last had her treatment on . Patient has a known DVT and is currently on Eliquis but is complaining of chest pain and headache. She also has a history of lupus and is currently followed by Dr. Zhang, has history of migraines as well. Related Data Home Medications Medication Instructions Recorded Confirmed albuterol sulfate 90 mcg/actuation 2 puff PO Q4-6H PRN Wheezing 10/02/21 02/10/23 aerosol inhaler (ProAir HFA) duloxetine 60 mg capsule,delayed 1 cap PO BID 10/02/21 02/10/23 release famotidine 20 mg tablet 1 tab PO BID@1200,2100 10/02/21 02/10/23 ferrous sulfate 325 mg (65 mg 1 tab PO QAM 10/02/21 02/10/23 iron) tablet (FeroSul) gabapentin 400 mg capsule 400 mg PO TID 10/22/21 02/10/23 risperidone 1 mg tablet 0.5 mg PO DAILY PRN Agitation 10/22/21 02/10/23 trazodone 150 mg tablet 1 tab PO BEDTIME PRN Sleep 10/22/21 02/10/23 hydrochlorothiazide 12.5 mg tablet 12.5 mg PO DAILY 03/02/22 02/10/23 docusate sodium 100 mg capsule 100 mg PO BEDTIME PRN Constipation 04/19/22 02/10/23 oxycodone-acetaminophen 5 mg-325 1 tab PO Q8H PRN pain 04/19/22 02/10/23 mg tablet apixaban 5 mg tablet (Eliquis) 5 mg PO BID 09/22/22 02/10/23 alprazolam 1 mg tablet 1 mg PO BEDTIME PRN Anxiety 12/10/22 02/10/23 hydrocortisone 2.5 % topical cream appl topical BID 12/10/22 02/10/23 naloxone 4 mg/actuation nasal spray 0 spray intranasal PRN Opiate 12/10/22 Reversal nicotine 21 mg/24 hr daily 0 patch topical 12/10/22 02/10/23 transdermal patch benztropine 0.5 mg tablet 0.5 mg PO QAM 01/17/23 02/10/23 sertraline 50 mg tablet 0 mg PO 01/17/23 02/10/23 Previous Rx's Medication Instructions Recorded adhesive bandage 1 #20 ea 05/21/20 ursodiol 500 mg tablet 500 mg PO BID #90 tabs 10/08/21 diclofenac sodium 1 % topical gel 4 g topical QID #100 grams 03/28/22 cyclobenzaprine 10 mg tablet 10 mg PO TID PRN muscle spasm #10 08/20/22 tabs lidocaine 5 % topical patch 1 patch topical DAILY #15 ea 08/20/22 (Lidoderm) acetaminophen 500 mg tablet 500 - 1,000 mg PO Q8-10H PRN pain 09/22/22 #100 tabs nystatin 100,000 unit/gram topical 1 appl topical BID #30 grams 11/10/22 powder oxycodone 5 mg capsule 5 mg PO BID PRN pain #6 caps 11/22/22 umeclidinium 62.5 mcg/actuation 1 inh PO DAILY #30 ea 11/29/22 blister powder for inhalation (Incruse Ellipta) prednisone 10 mg tablet 10 mg PO DIRECTED #36 tabs 12/14/22 ascorbate calcium (vitamin C) 500 1 g PO DAILY 90 days #180 tabs 12/21/22 mg tablet vitamin A palmitate 3,000 mcg 10,000 unit PO DAILY #90 tabs 12/21/22 (10,000 unit) tablet cephalexin 500 mg tablet 500 mg PO Q6H 10 days #40 tabs 01/10/23 pantoprazole 40 mg tablet,delayed 40 mg PO DAILY #90 tabs 01/17/23 release methotrexate sodium 2.5 mg tablet 20 mg PO QWEEK #32 tabs 01/24/23 folic acid 1 mg tablet 1 mg PO QAM #90 tabs 01/31/23 cholecalciferol (vitamin D3) 25 25 mcg PO QAM #90 caps 02/28/23 mcg (1,000 unit) capsule (Vitamin D3) oxycodone 10 mg tablet 10 mg PO TID PRN pain #9 tabs 03/04/23 prednisone 20 mg tablet 40 mg PO DAILY 3 days #6 tabs 03/04/23 Allergies Allergy/AdvReac Type Severity Reaction Status Date / Time almond [ALMONDS] Allergy Severe ANAPHYLAXIS Verified 03/26/23 11:55 adhesive tape [ADHESIVE TAPE] Allergy Intermediate RASH Verified 03/26/23 11:55 morphine [MORPHINE] Allergy Intermediate GI UPSET, Verified 03/26/23 11:55 difficulty breathing tramadol [TRAMADOL] AdvReac Unknown NAUSEA & Verified 03/26/23 11:55 VOMITING Review of Systems Review of Systems: Pertinent positives and negatives as stated in HPI [facility] Past Medical History Source: nursing notes reviewed Medical History Acute arthritis Bleeding hemorrhoid Bone cancer Cancer of heart Chronic GERD De Quervain's disease (tenosynovitis) Degeneration of intervertebral disc at C4-C5 level Degeneration, intervertebral disc, lumbar Depression Depressive disorder Esophageal dysphagia Fibromyalgia Gallstones History of chemotherapy Hodgkin disease Hx of peripheral pulmonary artery stenosis Lung cancer Nocturia Osteoarthritis of spine with radiculopathy, lumbar region Rheumatoid arthritis involving multiple sites Seropositive rheumatoid arthritis Stress incontinence in female Systemic lupus erythematosus Urgency-frequency syndrome Vitamin D deficiency Surgical History H/O tubal ligation History of angioplasty of vein History of biopsy History of esophagogastroduodenoscopy (EGD) History of lymph node dissection of left axilla History of repair of inguinal hernia Hx laparoscopic cholecystectomy Hx of colonoscopy Hx of endoscopy Family History Family History Maternal Grandmother Ovarian cancer Social History Social History Household Members: Spouse Housing: Apartment Are you a primary medical care evaluation specialist to a significant other at home: No Do 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 have 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 or other home services: Yes (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) Alcohol intake: never Patient Tobacco Use Status: Never used Tobacco Tobacco use type: Cigarette Smoked in Last 30 Days: Yes Use of substances other than those prescribed or required for medical reasons: Yes Substance Use Type: Marijuana Advance Directives: No Advance Directives Information Provided: No Advance Directives Date on File: 09/23/20 Patient : No service: No Current occupational status: disabled 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 GENERAL: Well developed, well nourished, in no acute distress. HEAD: Normocephalic/atraumatic EYES: PERRLA, EOMI EARS: Ext canals without abnormality, TMs non-bulging and non-erythematous NOSE: Nares patent bilateral OROPHARYNX: no oral lesions noted, posterior pharynx clear and non-erythematous without noted tonsillar enlargement/erythema/exudates NECK: Supple, no adenopathy LUNGS: Normal breath sounds. No adventitious sounds or accessory muscle use. SpO2<99> CARDIOVASCULAR: Regular rate and rhythm without noted murmurs ABDOMEN: Soft, non-tender, non-distended with bowel sounds. MUSCULOSKELETAL: No tenderness, deformities, or effusions noted on gross inspection. EXTREMITIES: No cyanosis, clubbing or edema. SKIN: Inspection of the skin reveals no rashes NEUROLOGIC: Alert and oriented x 4. Strength and sensation to light touch were grossly intact x 4, no facial asymmetry, no pronator drift, cranial nerves 2-12 are grossly intact.. Course Course Course Narrative: This is an RME: Additional HPI, ROS, PE not included below will be deferred to primary provider. Patient is a 47-year-old female the past medical history of Hodgkin's lymphoma in remission, rheumatoid arthritis, and lupus who presents to the emergency department for evaluation of chest pain, right lower back pain, left sided headache, left arm pain. Onset was 16 days ago after starting chemo, was intermittent, now it is constant for 2 days after she had an allergic reaction to chemo for management of Lupus, and it had to be stopped due to an allergic reaction. Upon review of her chart she received Rituximab IV 03/10/2023 and 03/24/2023 Plan: EKG, labs, CXR Medications Administered Discontinued Medications Generic Name Dose Route Start Last Admin Trade Name Freq PRN Reason Stop Dose Admin Lidocaine/Diphenhydr/Alum/Mg/Simeth 10 ml 03/26/23 13:59 03/26/23 14:10 Mag&Al/Sim/Diphenhyd/Lidocaine 10 Ml Oral.Susp PO 03/26/23 14:00 10 ml ONCE ONE Administration Protocol Medical Decision Making Medical Decision Making [facility] Narrative: 47-year-old female with history and clinical presentation not consistent with infectious etiology and she is afebrile and on review of hematologic indices there is no leukocytosis or left shift, there is no anemia or thrombocytopenia either. Patient is also nonfocal and was provided with a Fioricet for her headache and a GI cocktail for her waxing and waning chest discomfort. Chemistry indices do not demonstrate any electrolyte or liver enzyme abnormalities, there is no SUMMER. Urinalysis is negative for UTI and although there is a leukocyte esterase there is also contamination with squamous epithel ial cells which likely explains the presence of the bacteria. Since patient is on Eliquis I did proceed with CT scan of the head which is negative for intracranial bleeding and otherwise my interpretation is in agreement with radiology's impression. My interpretation is that patient has exacerbation of chronic underlying acid reflux and migraine. On re-evaluation she reports some improvement in her discomfort and is otherwise discharged home for follow-up with her primary care provider on Tuesday morning. Differential Diagnosis Differential Diagnoses: The differential diagnosis associated with the presentation includes Please see the discussion above Admission/Observation Consideration of admission/observation: Escalation of care including admission/observation considered Please see the discussion above Lab Data [facility] Lab Attestation statement: I reviewed the patient's lab results. Please see the discussion above 03/26/23 12:07 03/26/23 12:07 Labs: Lab Results 03/26/23 03/26/23 03/26/23 Range/Units 12:07 12:07 12:07 WBC 8.7 (4.8-10.8) X10*3/uL RBC 4.00 L (4.20-5.50) X10*6/uL Hgb 12.1 (12.0-16.0) g/dl Hct 38.1 (37.0-47.0) % MCV 95.3 (80.0-98.0) fL MCH 30.3 (27.0-33.0) pg MCHC 31.8 (31.0-35.0) g/dl RDW 13.7 (11.0-16.0) % Plt Count 253 (160-400) X10*3/uL MPV 9.7 (9.4-12.3) fL Immature Gran % (Auto) 0.2 (0.0-0.4) % Neut % (Auto) 73.0 (45-73) % Lymph % (Auto) 20.3 (20-40) % [place] % (Auto) 5.4 (2-11) % Eos % (Auto) 0.9 (0-4) % Baso % (Auto) 0.2 (0-2) % Lymph # (Auto) 1.8 (1.2-4.9) X10*3/uL [place] # (Auto) 0.5 (0.1-1.2) X10*3/uL Eos # (Auto) 0.1 (0.0-0.4) X10*3/uL Baso # (Auto) 0.0 (0.0-0.2) X10*3/uL Abs Immat Gran (auto) 0.02 (0.00-0.03) X10*3/uL Absolute Neuts (auto) 6.3 (2.0-8.3) x10*3/uL Absolute Nucleated RBC 0.000 (0.0-0.012) X10*3/uL Nucleated RBC % (auto) 0.0 (0.0-0.2) /100WBC Sodium 140 (135-145) mmol/L Potassium 3.9 (3.3-5.1) mmol/L Chloride 108 (96-108) mmol/L Carbon Dioxide 23 (22-29) mmol/L Anion Gap 13 (12-20) BUN 14 (9-16) mg/dL Creatinine 0.85 (0.5-1.4) mg/dL Estim Creat Clear Calc 85.4 Estimated GFR > 60 Random Glucose 119 H (60-115) mg/dL Calcium 9.9 (8.4-10.2) mg/dL Magnesium 2.1 (1.6-2.6) mg/dL Total Bilirubin 0.3 (0.0-1.0) mg/dL AST 13 (5-31) U/L ALT 11 (0-31) U/L Alkaline Phosphatase 60 (39-117) U/L Troponin I High Sens 3.0 (<3.5-17.0) ng/L Total Protein 8.7 H (6.5-8.0) g/dL Albumin 4.0 (3.5-5.0) g/dL Lipase 25 (8-78) U/L Urine Color Urine Appearance Urine pH (5.0-9.0) Ur Specific [place] (1.005-1.025) Urine Protein (Neg-Trace) mg/dL Urine Glucose (UA) (Negative) mg/dL Urine Ketones (Negative) mg/dL Urine Blood (Negative) Urine Nitrite (Negative) Ur Leukocyte Esterase (Negative) Urine RBC (0-2) /HPF Urine WBC (0-5) /HPF Ur Squamous Epith Cells (0-2) /HPF Urine Bacteria (None Seen) Hyaline Casts (0-2) /LPF 03/26/23 Range/Units 13:16 WBC (4.8-10.8) X10*3/uL RBC (4.20-5.50) X10*6/uL Hgb (12.0-16.0) g/dl Hct (37.0-47.0) % MCV (80.0-98.0) fL MCH (27.0-33.0) pg MCHC (31.0-35.0) g/dl RDW (11.0-16.0) % Plt Count (160-400) X10*3/uL MPV (9.4-12.3) fL Immature Gran % (Auto) (0.0-0.4) % Neut % (Auto) (45-73) % Lymph % (Auto) (20-40) % [place] % (Auto) (2-11) % Eos % (Auto) (0-4) % Baso % (Auto) (0-2) % Lymph # (Auto) (1.2-4.9) X10*3/uL [place] # (Auto) (0.1-1.2) X10*3/uL Eos # (Auto) (0.0-0.4) X10*3/uL Baso # (Auto) (0.0-0.2) X10*3/uL Abs Immat Gran (auto) (0.00-0.03) X10*3/uL Absolute Neuts (auto) (2.0-8.3) x10*3/uL Absolute Nucleated RBC (0.0-0.012) X10*3/uL Nucleated RBC % (auto) (0.0-0.2) /100WBC Sodium (135-145) mmol/L Potassium (3.3-5.1) mmol/L Chloride (96-108) mmol/L Carbon Dioxide (22-29) mmol/L Anion Gap (12-20) BUN (9-16) mg/dL Creatinine (0.5-1.4) mg/dL Estim Creat Clear Calc Estimated GFR Random Glucose (60-115) mg/dL Calcium (8.4-10.2) mg/dL Magnesium (1.6-2.6) mg/dL Total Bilirubin (0.0-1.0) mg/dL AST (5-31) U/L ALT (0-31) U/L Alkaline Phosphatase (39-117) U/L Troponin I High Sens (<3.5-17.0) ng/L Total Protein (6.5-8.0) g/dL Albumin (3.5-5.0) g/dL Lipase (8-78) U/L Urine Color Yellow Urine Appearance Cloudy Urine pH 5.5 (5.0-9.0) Ur Specific [place] 1.025 (1.005-1.025) Urine Protein Negative (Neg-Trace) mg/dL Urine Glucose (UA) Negative (Negative) mg/dL Urine Ketones Negative (Negative) mg/dL Urine Blood Negative (Negative) Urine Nitrite Negative (Negative) Ur Leukocyte Esterase Trace H (Negative) Urine RBC 0-2 (0-2) /HPF Urine WBC 0-5 (0-5) /HPF Ur Squamous Epith Cells 11-20 (0-2) /HPF Urine Bacteria 3+ (None Seen) Hyaline Casts 0-2 (0-2) /LPF Independent Interpretation I performed an independent interpretation of an: EKG Interpretation: Normal sinus rhythm, HR-76, no STEMI, FL/QRS/QTC is within normal limits. Radiology Impression Radiologist Impression: Please see the discussion above External Record Review External record reviewed: Outpatient record, Prior outpatient labs and Prior outpatient radiology Chronic Conditions Patient?s care impacted by: Other Lupus Discharge Plan Discharge Clinical Impression: Migraine, Gastritis, Acid reflux Patient Disposition: Home, Self-Care Instructions: Diet for Stomach Ulcers and Gastritis (ED), Indigestion (ED), Gastritis (ED), Migraine Headache (ED) Additional Instructions: 1. Reanudar todos los medicamentos caseros seg?n lo recetado. 2. Recomiendo Tylenol/ibuprofeno de venta yariel seg?n sea necesario para controlar el dolor de kayla. 3. Rupali un seguimiento con kessler proveedor de atenci?n primaria el lunes por la ma?ngoc para moira evaluaci?n adicional de addie s?ntomas. Regrese a la lianna de emergencias si los s?ntomas empeoran. 1. Resume all home medications as prescribed. 2. I recommend [id number]-llt-nedflat Tylenol/ibuprofen as needed for pain control of your headache. 3. Please follow-up with primary care provider on Tuesday morning for further evaluation of your symptoms. Return to the ER for any worsening symptoms. Prescriptions: No Action (DME) adhesive bandage 1 bandage See Rx Instructions .ROUTE .MEDSUPPLY Qty: 20 5RF Rx Instructions: Use after Methotrexate injection Incruse Ellipta 62.5 mcg/actuation blister with device 1 inh PO DAILY Qty: 30 6RF ascorbate calcium (vitamin C) 500 mg tablet 1 g PO DAILY 90 Days Qty: 180 2RF vitamin A palmitate 3,000 mcg (10,000 unit) tablet 10,000 unit PO DAILY Qty: 90 1RF methotrexate sodium 2.5 mg tablet 20 mg PO QWEEK Qty: 32 2RF folic acid 1 mg tablet 1 mg PO QAM Qty: 90 2RF cholecalciferol (vitamin D3) [Vitamin D3] 25 mcg (1,000 unit) capsule 25 mcg PO QAM Qty: 90 2RF gabapentin 400 mg capsule 400 mg PO TID trazodone 150 mg tablet 1 tab PO BEDTIME PRN (Reason: Sleep) risperidone 1 mg tablet 0.5 mg PO DAILY PRN (Reason: Agitation) diclofenac sodium 1 % gel 4 g topical QID Qty: 100 0RF Rx Instructions: apply to single knee, ankle, foot; for foot includes sole/toes/top of foot famotidine 20 mg tablet 1 tab PO BID@1200,2100 ferrous sulfate [FeroSul] 325 mg (65 mg iron) tablet 1 tab PO QAM albuterol sulfate [ProAir HFA] 90 mcg/actuation HFA aerosol inhaler 2 puff PO Q4-6H PRN (Reason: Wheezing) duloxetine 60 mg capsule,delayed release(DR/EC) 1 cap PO BID ursodiol 500 mg tablet 500 mg PO BID Qty: 90 1RF cyclobenzaprine 10 mg tablet 10 mg PO TID PRN (Reason: muscle spasm) Qty: 10 0RF lidocaine [Lidoderm] 5 % adhesive patch,medicated 1 patch topical DAILY Qty: 15 0RF Rx Instructions: leave on most painful area for up to 12 hrs nystatin 100,000 unit/gram powder 1 appl topical BID Qty: 30 0RF oxycodone 5 mg capsule 5 mg PO BID PRN (Reason: pain) Qty: 6 0RF Rx Instructions: Partial Fill upon patient request. cephalexin 500 mg tablet 500 mg PO Q6H 10 Days Qty: 40 0RF prednisone 10 mg tablet 10 mg PO DIRECTED Qty: 36 0RF Rx Instructions: Take 4 tablets for 4 days THEN; Take 3 tablets for 4 days THEN; Take 2 tablets for 4 days THEN; Return to 1 tablets per day prednisone 20 mg tablet 40 mg PO DAILY 3 Days Qty: 6 0RF oxycodone 10 mg tablet 10 mg PO TID PRN (Reason: pain) Qty: 9 0RF Rx Instructions: Partial Fill upon patient request. aware of other prescriptions acute pain management oxycodone-acetaminophen 5-325 mg tablet 1 tab PO Q8H PRN (Reason: pain) docusate sodium 100 mg capsule 100 mg PO BEDTIME PRN (Reason: Constipation) hydrochlorothiazide 12.5 mg tablet 12.5 mg PO DAILY hydrocortisone 2.5 % cream topical BID alprazolam 1 mg tablet 1 mg PO BEDTIME PRN (Reason: Anxiety) naloxone 4 mg/actuation spray,non-aerosol 0 spray intranasal PRN (Reason: Opiate Reversal) nicotine 21 mg/24 hr patch 24 hour 0 patch topical Eliquis 5 mg tablet 5 mg PO BID acetaminophen 500 mg tablet 500 - 1,000 mg PO Q8-10H PRN (Reason: pain) Qty: 100 4RF benztropine 0.5 mg tablet 0.5 mg PO QAM sertraline 50 mg tablet 0 mg PO pantoprazole 40 mg tablet,delayed release (DR/EC) 40 mg PO DAILY Qty: 90 1RF Referrals: Yolyn,[facility] [Primary Care Provider] - Print Language: [place]
--- NOTE | 2023-03-26 11:54 | MHC.EDTECH ---
patient was pulled into triage right away. unable to do EKG until after triage.
[2023-03-26 12:13] LABS: MANUAL DIFF FLAG NO
[2023-03-26 12:15] LABS: Basophils Percent Auto 0.2 % (0-2); Eosinophils Absolute Auto 0.1 X10*3/uL (0.0-0.4); Eosinophils Percent Auto 0.9 % (0-4); Hematocrit 38.1 % (37.0-47.0); Hemoglobin 12.1 g/dl (12.0-16.0); Imm Gran Abs Auto 0.02 X10*3/uL (0.00-0.03); Imm Gran Pct Auto 0.2 % (0.0-0.4); Lymphocytes Absolute Auto 1.8 X10*3/uL (1.2-4.9); Lymphocytes Percent Auto 20.3 % (20-40); Mean Corpuscular HGB Conc 31.8 g/dl (31.0-35.0); Mean Corpuscular Hemoglobin 30.3 pg (27.0-33.0); Mean Corpuscular Volume 95.3 fL (80.0-98.0); Mean Platelet Volume 9.7 fL (9.4-12.3); Monocytes Absolute Auto 0.5 X10*3/uL (0.1-1.2); Monocytes Percent Auto 5.4 % (2-11); Neutrophils Absolute Auto 6.3 x10*3/uL (2.0-8.3); Platelet Count 253 X10*3/uL (160-400); Red Cell Distribution Width 13.7 % (11.0-16.0); White Blood Count 8.7 X10*3/uL (4.8-10.8)
[2023-03-26 12:33] LABS: Alanine Aminotransferase 11 U/L (0-31); Alkaline Phosphatase 60 U/L (39-117); Anion Gap 13 (12-20); Aspartate Amino Transferase 13 U/L (5-31); Bilirubin Total 0.3 mg/dL (0.0-1.0); Blood Urea Nitrogen 14 mg/dL (9-16); Calcium 9.9 mg/dL (8.4-10.2); Carbon Dioxide 23 mmol/L (22-29); Chloride 108 mmol/L (96-108); Creatinine Clr Calc Pharmacy 85.4; Estimated Glomerular Filt Rate > 60; Glucose Random 119 mg/dL (60-115); Lipase 25 U/L (8-78); Magnesium 2.1 mg/dL (1.6-2.6); Potassium 3.9 mmol/L (3.3-5.1); Sodium 140 mmol/L (135-145); Total Protein 8.7 g/dL (6.5-8.0)
[2023-03-26 12:42] VITALS: BP 124/76; PULSE 69; RESP 25; O2SAT 95
--- NOTE | 2023-03-26 12:54 | PC.NURSE ---
pt a&ox3, vss, nsr on the monitoring engineer. pt verbalizing 8/10 chest pain that radiates to LUE. pt verbalizes nausea but denies v/d/fever/chills. pt also states 10/10 headache that does not resolve with tylenol. pt tearful d/t pain and anxiety. labs drawn by tech. call cardona placed within reach.
[2023-03-26 13:25] LABS: Appearance Urine Cloudy; Color Urine Yellow; Glucose Urine UA Negative (Negative); Leukocyte Esterase Urine Trace (Negative); Nitrite Urine Negative (Negative); PH 5.5 (5.0-9.0); Specific Gravity - Urine 1.025 (1.005-1.025); UMIC TRIGGER UACC YES; Urine Blood Negative (Negative); Urine Ketones Negative (Negative); Urine Protein Negative (Neg-Trace)
[2023-03-26 13:42] LABS: Bacteria Urine 3+ (None Seen); Hyaline Casts Urine 0-2 /LPF (0-2); RBC Urine 0-2 /HPF (0-2); WBC Urine 0-5 /HPF (0-5)
[2023-03-26 14:00] VITALS: BP 113/55; PULSE 60; RESP 16; TEMP 36.8; O2SAT 99
[2023-03-26] MEDS: Mag&Al/Sim/Diphenhyd/Lidocaine 10 ML ORAL.SUSP PO (14:10)
--- NOTE | 2023-03-26 14:11 | PC.NURSE ---
pt a&ox3, vss, nsr on the digital program manager. pt still verbalizing 10/10 headache but chest pain decreased to a 2/10. medication administered per provider order. pt currently being transported to CT. will reassess pain level post medication administration when pt comes back.
== END 2023-03-26 16:24 | disposition home or self-care (01) ==
PROVIDERS: Nurse Practitioner Family; Emergency Provider Student in an Organized Health Care Education/Training Program
DX: G43.909 Migraine, unspecified, not intractable, without status migrainosus (principal); K29.70 Gastritis, unspecified, without bleeding; K21.9 Gastro-esophageal reflux disease without esophagitis; L93.0 Discoid lupus erythematosus; Z92.21 Personal history of antineoplastic chemotherapy; Z86.718 Personal history of other venous thrombosis and embolism; Z79.01 Long term (current) use of anticoagulants; Z79.899 Other long term (current) drug therapy
CPT/HCPCS: 36415; 70450; 71046; 80053; 81001; 83690; 83735; 84484; 85025; 93005; 99284; 99285

== ENCOUNTER 2023-03-28 14:07 | Outpatient (AMB) | payer MEDICAID, SELFPAY ==
--- NOTE | 2023-03-28 14:20 | A.OFFVIS_ITS ---
Intake Vital Signs 03/28/23 14:21 Height 5 ft 4 in Weight 198 lb 3.129 oz BMI 34.0 BP 108/62 Blood Pressure Location Rt brachial Position Sitting Pulse 86 Pulse Source Pulse Oximeter Temp 98.1 F Temp Source Skin Pulse Oximetry (%) 98 Oxygen Delivery Method Room Air Intake Visit Reasons: RA Intake Note: Here for RA follow up. Would like to know if should continue chemotherapy ? Electric Shaver Mechanic Required: Yes Electric Shaver Mechanic Language: Pulling Unit Floorhand Name: Maojr Spence Information Interpreted: clinical only Allergies almond [ALMONDS] Allergy (Severe, Verified 03/28/23 14:21) ANAPHYLAXIS adhesive tape [ADHESIVE TAPE] Allergy (Intermediate, Verified 03/28/23 14:21) RASH morphine [MORPHINE] Allergy (Intermediate, Verified 03/28/23 14:21) GI UPSET, difficulty breathing tramadol [TRAMADOL] Adverse Reaction (Unknown, Verified 03/28/23 14:21) NAUSEA & VOMITING Medication List - Last Reconciled 03/28/23 by Tom Ram MD acetaminophen 500 - 1,000 mg (1 - 2 x 500 mg) PO Q8-10H PRN adhesive bandage Use after Methotrexate injection albuterol sulfate 90 mcg/actuation (ProAir HFA) 2 puffs PO Q4-6H PRN alprazolam 1 mg PO BEDTIME PRN apixaban (Eliquis) 5 mg PO BID ascorbate calcium (vitamin C) 1 g (2 x 500 mg) PO DAILY 90 days benztropine 0.5 mg PO QAM cholecalciferol (vitamin D3) (Vitamin D3) 25 mcg PO QAM cyclobenzaprine 10 mg PO TID PRN diclofenac sodium 1% 4 grams topical QID docusate sodium 100 mg PO BEDTIME PRN duloxetine 1 cap PO BID famotidine 1 tab PO BID@1200,2100 ferrous sulfate (FeroSul) 1 tab PO QAM folic acid 1 mg PO QAM gabapentin 400 mg PO TID hydrochlorothiazide 12.5 mg PO DAILY hydrocortisone 2.5% appl topical BID lidocaine 5% (Lidoderm) 1 patch topical DAILY methotrexate sodium 20 mg (8 x 2.5 mg) PO QWEEK naloxone 4 mg/actuation 0 sprays intranasal PRN nicotine 0 patches topical nystatin 1 appl topical BID oxycodone 5 mg PO BID PRN pantoprazole 40 mg PO DAILY prednisone 10 mg PO DIRECTED risperidone 0.5 mg PO DAILY PRN trazodone 1 tab PO BEDTIME PRN umeclidinium 62.5 mcg/actuation (Incruse Ellipta) 1 inh PO DAILY ursodiol 500 mg PO BID vitamin A palmitate 10,000 units PO DAILY HPI HPI Comments History of Present Illness Details The patient returns today for evaluation of her rheumatoid arthritis. She just completed 2 doses of the rituximab at the infusion center. The 1st infusion went well although the 2nd was complicated, during the latter half with some headache, lightheadedness, shortness of breath and chest tightness. She never developed any hypoxia and vital signs remained stable. She was given an extra dose of Solu-Medrol. We were able to finish the infusion without additional medication. She reports the joints are doing much better. She can now move her wrists and elbows without pain. She still has some pain in the right calf area where she has known peripheral vascular disease. She says that is what is limiting her walking at this point. She remains on prednisone 10 mg daily, methotrexate 20 mg once a week, alprazolam at bedtime, cyclobenzaprine 10 mg t.i.d. p.r.n., duloxetine 1 cap daily, gabapentin 400 mg t.i.d., and trazodone if needed for sleep. [facility] Medical History Acute arthritis Bleeding hemorrhoid Bone cancer Cancer of heart Chronic GERD De Quervain's disease (tenosynovitis) Degeneration of intervertebral disc at C4-C5 level Degeneration, intervertebral disc, lumbar Depression Depressive disorder Esophageal dysphagia Fibromyalgia Gallstones History of chemotherapy Hodgkin disease Hx of peripheral pulmonary artery stenosis Lung cancer Nocturia Osteoarthritis of spine with radiculopathy, lumbar region Rheumatoid arthritis involving multiple sites Seropositive rheumatoid arthritis Stress incontinence in female Systemic lupus erythematosus Urgency-frequency syndrome Vitamin D deficiency Surgical History H/O tubal ligation History of angioplasty of vein History of biopsy History of esophagogastroduodenoscopy (EGD) History of lymph node dissection of left axilla History of repair of inguinal hernia Hx laparoscopic cholecystectomy Hx of colonoscopy Hx of endoscopy Family History Maternal Grandmother Ovarian cancer Social History Household Members: Spouse Housing: Apartment Are you a primary healthcare administrative assistant to a significant other at home: No Do 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 have 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 or other home services: Yes (electrochemist) Alcohol intake: never Patient Tobacco Use Status: Never used Tobacco Tobacco use type: Cigarette Substance Use Type: Marijuana Advance Directives Date on File: 09/23/20 service: No Current occupational status: disabled 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 Card Details: Negative chest pain, edema and syncope Resp Details: Negative for SOB, cough and wheezing GI Details: Negative indigestion/heartburn, nausea, abdominal pain, bowel changes, diarrhea, constipation and bloody stool. Skin/Breast Details: Negative for itching, rash, hives, Raynaud's symptoms, sun sensitivity, and skin cancer Psych Details: Negative for anxiety, depression and stress Endo Details: Negative for polyuria and polydypsia Ki/Lymph Details: Negative for excessive bruising or bleeding. Physical Exam Vital Signs: Last Vital Signs Temp 98.1 F 03/28/23 14:21 Pulse 86 03/28/23 14:21 BP 108/62 03/28/23 14:21 Pulse Ox 98 03/28/23 14:21 Oxygen Delivery Method Room Air 03/28/23 14:21 BMI result Body Mass Index 34.0 APPEARANCE: Patient in no acute distress EYES no redness, pupils equal and reactive to light, eyelids normal EXTREMITIES: No edema. There is some mild tenderness in the right lateral calf. SKIN: Nontender, Rheumatoid nodules are evident over the elbows, pinna of the ears and the hands. No other inflammatory or neoplastic lesions. JOINT EXAM: EYES no redness, pupils equal and reactive to light, eyelids normal EARS:? External ears on both sides have some tiny nodules over the helix of the ear.? These are not tender today tender.? They have no drainage evident. Her auditory canals arel clear and tympanic membrane normal JOINT EXAM: Cervical Spine:.? Mild pain with extremes of motion.? Mild cervical muscle tenderness. Thoracic Spine:.? No scoliosis.? No tenderness on palpation. Lumbar Spine:.? Alignment normal.? Full range of motion with pain at the extremes.? Mild paraspinal muscle tenderness. Chest Wall:.? No tenderness, swelling, increased warmth or erythema. Hands:. right:? There slight swelling at the 1st 3 MCP joints.? Today there is no tenderness, redness or warmth is appreciated.? No pain with range of motion in the MCPs; there is mild tenderness along the flexor tendons in 2nd and 3rd fingers.? She may have some slight sensory loss.? The 2nd PIP joint has some slight thickening and tenderness.? There are some nontender rheumatoid nodules evident.? Her hand does seem to be warm and well perfused. ? There is no objective sign of Raynaud's phenomenon.?? Left:? There is? mild swelling without tenderness of the 2nd through 4th MCP joints.? There is similar mild to moderate pain with minimal thickening at the 2nd through 4th PIP joints. Wrists: ? Right:? No swelling with 75 degrees flexion and extension possible without pain. There is minimal dorsal tenderness. Left:? 75 degrees flexion extension without tenderness or swelling. There is no redness or warmth. Elbows:? Right:? there are nodules felt over the ulnar area and in the olecranon region bilaterally.?These are slightly tender.? There is some eschar and some evidence of dry drainage.? There is no pain with range of motion at the elbow.? There is some minimal tenderness over the joint space without swelling. ? Left:? She has normal pain-free range of motion without tenderness, swelling, increased warmth or erythema in the left elbow joint.? There is 2 small nodules that are slightly tender with no evidence of dry discharge. Shoulders: ? Right:? There is mild pain the with abduction at 150 degrees or with more than 10 degrees of internal or external rotation.? There is mild anterior and posterior tenderness.? There is no axillary or supraclavicular adenopathy.? There is no abductor weakness.? Left:?? Full range of motion with? Slight discomfort at the extremes.? There is no tenderness without swelling, adenopathy, increased warmth or erythema. Hips:? Full range of motion with some lower back pain with extremes of internal and external rotation.? No groin pain with motion. Hip bursa:? ? Mild trochanteric tenderness on the right. ? Knees: ? Right:? From there is mild patellofemoral crepitus and no pain with the extremes of flexion or extension.? Mild medial tenderness and mild patellofemoral crepitus.? No redness or effusion. ? Left: Mild patellofemoral crepitus and no pain with extremes of flexion extension.? Slight medial tenderness without redness or effusion. Ankles:? Normal pain-free range of motion with mild tenderness but no swelling, increased warmth or erythema. Feet:? Right:? There is mild to moderate tenderness at the 1st 2 MTP joints.? The 1st toenail may be a bit loose but the surrounding cuticle is not tender or swollen.? There is also mild tenderness in the distal instep.? Left:? Slight tenderness at the 1st 2 MTP joints and in the instep.? No redness or warmth.? Tender points:?? mild tenderness to digital palpation at the occiput, trapezius, second rib, lateral epicondyle, knees, greater trochanter and gluteal area bilaterally Results Reviewed Results Reviewed: Laboratory Tests 02/10/23 03/26/23 03/26/23 11:14 12:07 12:07 WBC 8.7 Hgb 12.1 ESR 66 H AST 13 ALT 11 Assessment & Plan Assessment & Plan (1) PAD (peripheral artery disease): Comment: 04/21/2022 - diagnostic angiogram - left common iliac occlusion, right SFA stenosis at [place] canal 06/09/2022 - right SFA angioplasty and stent via radial approach Code(s): I73.9 - Peripheral vascular disease, unspecified (2) Rheumatoid nodules: Code(s): M06.30 - Rheumatoid nodule, unspecified site (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 regularly requiring prednisone. methotrexate and hydroxychloroquine ?2019 2020 methotrexate and Humira(HCQ stopped - ?vision changes). 06/2022 Humira stopped due to poor repsonse 06/2022 methotrexate and Actemra 12/2022: Actemra stopped by the patient. She had some leg swelling as well. 03/10/2023 and 03/24/23: 1 g on each day rituximab administered Code(s): M05.9 - Rheumatoid arthritis with rheumatoid factor, unspecified Plan RA and seemingly she has had a response here to either the high-dose steroids given around the time of the infusion or the rituximab itself. We will see if we can reduce the prednisone to 7.5 mg daily using the 2.5 mg tablets. I told her we would plan on another rituximab infusion in about 5 months. She will stay with the 20 mg weekly methotrexate and 1 mg daily folic acid. We will see her back in about 2 months with lab work before that visit. The nodules here again look like they are rheumatoid nodules, not surprising given her markedly seropositive status. Orders: Orders Alanine Aminotransferase Today M05.9 - Rheumatoid arthritis with rheumatoid factor, unspecified, Z79.899 - Other assistant terminal manager (current) drug therapy Aspartate Amino Transferase Today M05.9 - Rheumatoid arthritis with rheumatoid factor, unspecified, Z79.899 - Other jail (current) drug therapy Creatinine Today M05.9 - Rheumatoid arthritis with rheumatoid factor, unspecified, Z79.899 - Other jail (current) drug therapy C Reactive Protein Today M05.9 - Rheumatoid arthritis with rheumatoid factor, unspecified Complete Blood Count Auto Diff Today M05.9 - Rheumatoid arthritis with rheumatoid factor, unspecified, Z79.899 - Other jail (current) drug therapy Erythrocyte Sedimentation Rate Today M05.9 - Rheumatoid arthritis with rheumatoid factor, unspecified Medications: New prednisone 7.5 mg (3 x 2.5 mg) PO DAILY 90 tabs 1RF M06.9 - Rheumatoid arthritis, unspecified Discontinued prednisone Take 4 tablets for 4 days THEN; Take 3 tablets for 4 days THEN; Take 2 tablets for 4 days THEN; Return to 1 tablets per day Discontinued Reason: Doctor's Order 10 mg PO DIRECTED 36 tabs 0RF Coding Level of Care Code Est Pt Level 3 (02192) Diagnoses PAD (peripheral artery disease) I73.9 Rheumatoid nodules M06.30 alf methotrexate user Z79.899 Seropositive rheumatoid arthritis M05.9
[2023-03-28 14:21] VITALS: BP 108/62; PULSE 86; TEMP 36.7; O2SAT 98; BMI 34.0
== END 2023-03-28 14:51 | disposition home or self-care (01) ==
PROVIDERS: Visit Provider Internal Medicine Rheumatology
DX: M05.79 Rheumatoid arthritis with rheumatoid factor of multiple sites without organ or systems involvement (principal); I73.9 Peripheral vascular disease, unspecified; M06.30 Rheumatoid nodule, unspecified site; Z79.899 Other long term (current) drug therapy
CPT/HCPCS: 99214

== ENCOUNTER → 2023-03-28 14:07 | Outpatient (BNVA) | payer MEDICAID, SELFPAY | PROVIDERS: Visit Provider Internal Medicine Rheumatology ==

== ENCOUNTER 2023-03-30 13:34 | Outpatient (REF) | payer MEDICAID, SELFPAY ==
--- NOTE | ~2023-03-30 | XR_ITS ---
EXAMINATION: XR CHEST CLINICAL INFORMATION: Decreased lung sounds. COMPARISON: 03/26/2023 chest radiograph. TECHNIQUE: 2 views of the chest were obtained. FINDINGS: No significant abnormality is noted involving the heart, lungs, mediastinum, bony thorax or soft tissues. XR/XR chest 2V IMPRESSION: No acute cardiopulmonary process.
== END 2023-03-30 13:35 | disposition home or self-care (01) ==
LOC: HO.HHCX 13:34
PROVIDERS: Visit Provider Registered Nurse
DX: R06.89 Other abnormalities of breathing (principal)
CPT/HCPCS: 71046

== ENCOUNTER 2023-04-01 13:14 | Outpatient (REF) | payer MEDICAID, SELFPAY ==
--- NOTE | ~2023-04-01 | US_ITS ---
EXAMINATION: US VENOUS WITH DOPPLER UPPER EXTREMITY, RIGHT CLINICAL INFORMATION: Right upper extremity edema COMPARISON: 11/22/2022 TECHNIQUE: Ultrasound of the upper extremity is performed using compression sonography and color and pulse Doppler flow with assessment of augmentation of flow. There is also imaging and Doppler assessment of the jugular and subclavian veins. Spectral analysis with color-flow imaging is performed. FINDINGS: Respiratory variation, normal compression, and augmented flow are noted throughout the upper extremity including the axillary, brachial, cubital, and radial and ulnar veins. There is normal flow in the subclavian veins. There is no visible deep or superficial thrombophlebitis. The right internal jugular vein is extremely small in caliber with minimal color flow consistent with chronic stenosis. This is unchanged compared to the prior exam Enlarged lymph node is seen in the right neck measuring transverse diameter of 1.1 cm.. 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
[2023-04-01 15:02] LABS: MANUAL DIFF FLAG NO
[2023-04-01 15:46] LABS: Basophils Percent Auto 0.4 % (0-2); Eosinophils Absolute Auto 0.1 X10*3/uL (0.0-0.4); Eosinophils Percent Auto 1.1 % (0-4); Hematocrit 37.9 % (37.0-47.0); Hemoglobin 12.4 g/dl (12.0-16.0); Imm Gran Abs Auto 0.01 X10*3/uL (0.00-0.03); Imm Gran Pct Auto 0.2 % (0.0-0.4); Lymphocytes Absolute Auto 1.4 X10*3/uL (1.2-4.9); Lymphocytes Percent Auto 31.1 % (20-40); Mean Corpuscular HGB Conc 32.7 g/dl (31.0-35.0); Mean Corpuscular Hemoglobin 30.2 pg (27.0-33.0); Mean Corpuscular Volume 92.2 fL (80.0-98.0); Mean Platelet Volume 10.4 fL (9.4-12.3); Monocytes Absolute Auto 0.4 X10*3/uL (0.1-1.2); Monocytes Percent Auto 8.1 % (2-11); Neutrophils Absolute Auto 2.7 x10*3/uL (2.0-8.3); Neutrophils Percent Auto 59.1 % (45-73); Platelet Count 272 X10*3/uL (160-400); Red Blood Count 4.11 X10*6/uL (4.20-5.50); Red Cell Distribution Width 13.2 % (11.0-16.0); White Blood Count 4.6 X10*3/uL (4.8-10.8)
[2023-04-01 15:47] LABS: Basophils Percent Auto 0.6 % (0-2); Eosinophils Absolute Auto 0.1 X10*3/uL (0.0-0.4); Eosinophils Percent Auto 1.1 % (0-4); Hematocrit 37.8 % (37.0-47.0); Hemoglobin 12.1 g/dl (12.0-16.0); Imm Gran Abs Auto 0.01 X10*3/uL (0.00-0.03); Imm Gran Pct Auto 0.2 % (0.0-0.4); Lymphocytes Absolute Auto 1.4 X10*3/uL (1.2-4.9); Lymphocytes Percent Auto 30.9 % (20-40); Mean Corpuscular Hemoglobin 30.4 pg (27.0-33.0); Mean Platelet Volume 10.7 fL (9.4-12.3); Monocytes Absolute Auto 0.4 X10*3/uL (0.1-1.2); Monocytes Percent Auto 8.8 % (2-11); Neutrophils Absolute Auto 2.7 x10*3/uL (2.0-8.3); Neutrophils Percent Auto 58.4 % (45-73); Platelet Count 283 X10*3/uL (160-400); Red Blood Count 3.98 X10*6/uL (4.20-5.50); Red Cell Distribution Width 13.2 % (11.0-16.0); White Blood Count 4.7 X10*3/uL (4.8-10.8)
[2023-04-01 16:01] LABS: D Dimer High Sensitivity 239 NG/ML
[2023-04-01 16:16] LABS: Alanine Aminotransferase 12 U/L (0-31); Albumin Level 4.5 g/dL (3.5-5.0); Alkaline Phosphatase 70 U/L (39-117); Anion Gap 18 (12-20); Aspartate Amino Transferase 19 U/L (5-31); Bilirubin Total 0.4 mg/dL (0.0-1.0); Blood Urea Nitrogen 11 mg/dL (9-16); C Reactive Protein 2.08 mg/dL (< or = 0.50); Calcium 10.5 mg/dL (8.4-10.2); Carbon Dioxide 22 mmol/L (22-29); Chloride 104 mmol/L (96-108); Estimated Glomerular Filt Rate > 60; Glucose Random 100 mg/dL (60-115); Lactate Dehydrogenase 140 U/L (122-220); Potassium 3.6 mmol/L (3.3-5.1); Sodium 140 mmol/L (135-145); Total Protein 9.4 g/dL (6.5-8.0)
[2023-04-01 16:19] LABS: Alanine Aminotransferase 14 U/L (0-31); Aspartate Amino Transferase 18 U/L (5-31); Estimated Glomerular Filt Rate > 60
[2023-04-01 16:37] LABS: Erythrocyte Sedimentation Rate 86 MM/HR (0-20)
== END 2023-04-01 13:15 | disposition home or self-care (01) ==
LOC: HO.US 13:14
PROVIDERS: Internal Medicine Medical Oncology; Internal Medicine Rheumatology; PCP General Practice; Visit Provider Internal Medicine
DX: R60.0 Localized edema (principal); I82.621 Acute embolism and thrombosis of deep veins of right upper extremity; C81.90 Hodgkin lymphoma, unspecified, unspecified site; M05.9 Rheumatoid arthritis with rheumatoid factor, unspecified; Z79.899 Other long term (current) drug therapy
CPT/HCPCS: 36415; 80053; 82565; 83615; 84450; 84460; 85025; 85379; 85652; 86140; 93971

== ENCOUNTER 2023-04-02 09:33 | Emergency (ER) | payer MEDICAID, SELFPAY ==
--- NOTE | ~2023-04-02 | XR_ITS ---
EXAMINATION: XR KNEE, LEFT CLINICAL INFORMATION: Medial knee pain COMPARISON: Left knee radiograph from 06/19/2022 TECHNIQUE: Four views of the left knee. FINDINGS: No acute visible fracture or dislocation. Joint spaces and alignment are maintained. No large knee joint effusion. Soft tissues are unremarkable. XR/XR knee LT 4V IMPRESSION: No acute visible fracture or dislocation.
--- NOTE | ~2023-04-02 | US_ITS ---
EXAMINATION: US VENOUS ULTRASOUND WITH DOPPLER LOWER EXTREMITY, LEFT CLINICAL INFORMATION: calf pain, hx DVTs COMPARISON: 03/04/2023. TECHNIQUE: Ultrasound of the deep veins is performed from the hip to the calf with compression sonography and color and pulse Doppler assessment. Spectral analysis with color-flow imaging is performed. FINDINGS: There is normal venous compression and respiratory variation and augmented flow. The visualized common femoral vein, superficial femoral vein, profunda femoral vein, popliteal vein, and the trifurcation region shows no evidence of deep venous thrombosis. There is no significant popliteal fossa cyst. If the patient's symptoms persist, followup ultrasound in 5 days 7 days might be of value to exclude proximal propagation from a non-visualized calf vein. US/US venous duplex LE LT IMPRESSION: No DVT demonstrated in the left lower extremity.
[2023-04-02 09:37] VITALS: BP 151/85; PULSE 92; RESP 17; TEMP 36.5; O2SAT 95; BMI 29.0
--- NOTE | 2023-04-02 10:03 | ED.GENADULT ---
HPI - General Adult General Chief complaint: Extremity Problem Stated complaint: l knee pain unable to walk Time Seen by Provider: 04/02/23 09:49 Source: patient, family and college associate Mode of arrival: ambulatory Limitations: language barrier History of Present Illness HPI narrative: Patient is a 47-year-old Mongolian-speaking female with history of rheumatoid arthritis, DVT currently on Eliquis, PAD, SLE presenting to the emergency department with severe left knee and lower leg pain since this morning. Patient reports that she went to get out of bed and was unable to bear weight on her left leg. Reports left medial knee pain radiating down her calf and lower leg. She denies any falls or other trauma. She is currently receiving weekly methotrexate infusions. She did not take any pain medication prior to arrival morning. She denies any chest pain or shortness of breath. MD complaint: left knee pain Onset (ago): hour(s) Location: lower extremity Radiation: distal Severity: severe Severity scale (1-10): >10 Quality: aching Pain Consistency: constant Relieving factors: rest Exacerbating factors: movement Associated symptoms: denies other symptoms Treatments prior to arrival: none Related Data Home Medications Medication Instructions Recorded Confirmed albuterol sulfate 90 mcg/actuation 2 puff PO Q4-6H PRN Wheezing 10/02/21 03/28/23 aerosol inhaler (ProAir HFA) duloxetine 60 mg capsule,delayed 1 cap PO BID 10/02/21 03/28/23 release famotidine 20 mg tablet 1 tab PO BID@1200,2100 10/02/21 03/28/23 ferrous sulfate 325 mg (65 mg 1 tab PO QAM 10/02/21 03/28/23 iron) tablet (FeroSul) gabapentin 400 mg capsule 400 mg PO TID 10/22/21 03/28/23 risperidone 1 mg tablet 0.5 mg PO DAILY PRN Agitation 10/22/21 03/28/23 trazodone 150 mg tablet 1 tab PO BEDTIME PRN Sleep 10/22/21 03/28/23 hydrochlorothiazide 12.5 mg tablet 12.5 mg PO DAILY 03/02/22 03/28/23 docusate sodium 100 mg capsule 100 mg PO BEDTIME PRN Constipation 04/19/22 03/28/23 apixaban 5 mg tablet (Eliquis) 5 mg PO BID 09/22/22 03/28/23 alprazolam 1 mg tablet 1 mg PO BEDTIME PRN Anxiety 12/10/22 03/28/23 hydrocortisone 2.5 % topical cream appl topical BID 12/10/22 03/28/23 naloxone 4 mg/actuation nasal spray 0 spray intranasal PRN Opiate 12/10/22 03/28/23 Reversal nicotine 21 mg/24 hr daily 0 patch topical 12/10/22 03/28/23 transdermal patch benztropine 0.5 mg tablet 0.5 mg PO QAM 01/17/23 03/28/23 Previous Rx's Medication Instructions Recorded adhesive bandage 1 #20 ea 05/21/20 ursodiol 500 mg tablet 500 mg PO BID #90 tabs 10/08/21 diclofenac sodium 1 % topical gel 4 g topical QID #100 grams 03/28/22 cyclobenzaprine 10 mg tablet 10 mg PO TID PRN muscle spasm #10 08/20/22 tabs lidocaine 5 % topical patch 1 patch topical DAILY #15 ea 08/20/22 (Lidoderm) acetaminophen 500 mg tablet 500 - 1,000 mg PO Q8-10H PRN pain 09/22/22 #100 tabs nystatin 100,000 unit/gram topical 1 appl topical BID #30 grams 11/10/22 powder oxycodone 5 mg capsule 5 mg PO BID PRN pain #6 caps 11/22/22 umeclidinium 62.5 mcg/actuation 1 inh PO DAILY #30 ea 11/29/22 blister powder for inhalation (Incruse Ellipta) ascorbate calcium (vitamin C) 500 1 g PO DAILY 90 days #180 tabs 12/21/22 mg tablet vitamin A palmitate 3,000 mcg 10,000 unit PO DAILY #90 tabs 12/21/22 (10,000 unit) tablet pantoprazole 40 mg tablet,delayed 40 mg PO DAILY #90 tabs 01/17/23 release methotrexate sodium 2.5 mg tablet 20 mg PO QWEEK #32 tabs 01/24/23 folic acid 1 mg tablet 1 mg PO QAM #90 tabs 01/31/23 cholecalciferol (vitamin D3) 25 25 mcg PO QAM #90 caps 02/28/23 mcg (1,000 unit) capsule (Vitamin D3) prednisone 2.5 mg tablet 7.5 mg PO DAILY #90 tabs 03/28/23 Allergies Allergy/AdvReac Type Severity Reaction Status Date / Time almond [ALMONDS] Allergy Severe ANAPHYLAXIS Verified 03/28/23 14:21 adhesive tape [ADHESIVE TAPE] Allergy Intermediate RASH Verified 03/28/23 14:21 morphine [MORPHINE] Allergy Intermediate GI UPSET, Verified 03/28/23 14:21 difficulty breathing tramadol [TRAMADOL] AdvReac Unknown NAUSEA & Verified 03/28/23 14:21 VOMITING Review of Systems Review of Systems: As per HPI. Yes all other systems are reviewed and are negative Constitutional: Constitutional: Reports as per HPI [facility] Past Medical History Medical History Acute arthritis Bleeding hemorrhoid Bone cancer Cancer of heart Chronic GERD De Quervain's disease (tenosynovitis) Degeneration of intervertebral disc at C4-C5 level Degeneration, intervertebral disc, lumbar Depression Depressive disorder Esophageal dysphagia Fibromyalgia Gallstones History of chemotherapy Hodgkin disease Hx of peripheral pulmonary artery stenosis Lung cancer Nocturia Osteoarthritis of spine with radiculopathy, lumbar region Rheumatoid arthritis involving multiple sites Seropositive rheumatoid arthritis Stress incontinence in female Systemic lupus erythematosus Urgency-frequency syndrome Vitamin D deficiency Surgical History H/O tubal ligation History of angioplasty of vein History of biopsy History of esophagogastroduodenoscopy (EGD) History of lymph node dissection of left axilla History of repair of inguinal hernia Hx laparoscopic cholecystectomy Hx of colonoscopy Hx of endoscopy Family History Family History Maternal Grandmother Ovarian cancer Social History Social History Household Members: Spouse Housing: Apartment Are you a primary landcare officer to a significant other at home: No Do 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 have 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 or other home services: Yes (stitcher set up 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 automatic) Alcohol intake: never Patient Tobacco Use Status: Never used Tobacco Tobacco use type: Cigarette Substance Use Type: Marijuana Advance Directives: No Advance Directives Information Provided: No Advance Directives Date on File: 09/23/20 service: No Current occupational status: disabled 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 Blood pressure elevated. Patient states she did not take any of her medications this morning. Heart rate normal. Respiratory rate normal. Temperature normal. Oxygen saturation normal. Const General: cooperative, healthy appearing and no acute distress Orientation/consciousness: oriented to person, oriented to place, oriented to time and patient oriented x3 Limitations: no limitations [facility] Head: Yes normocephalic and Yes atraumatic Ears: external ears normal General nose exam: Normal external nose present Face and sinus: Yes face symmetric Mouth: oropharynx normal and moist mucous membranes Throat: Yes uvula midline Eyes Pupils: Equal, round and reactive pupils present Neck Neck: Yes normal visual inspection and Yes supple Resp Effort & Inspection: normal respiratory effort and able to speak in complete sentences Auscultation: clear to auscultation bilaterally Cardio Rate: regular rate Rhythm: regular rhythm Heart sounds: S1 normal heart sound present and S2 normal heart sound present GI Palpation (GI): Soft to palpation and nontender Auscultation: normoactive bowel sounds General: Yes no CVA tenderness Back/Spine/Pelvis Back: no CVA tenderness Skin General skin exam: elasticity normal and turgor normal Neuro General: oriented to person, oriented to place, oriented to time, patient oriented x3, moves all extremities, no focal motor deficits and CN's II-XI intact bilaterally Cranial nerves: Yes Equal, round and reactive pupils present Cognition (Neuro): normal cognition Extrem General: Yes full ROM, Yes normal exam except as noted, Yes no pedal edema and Yes no calf tenderness Left lower extremity: knee Details: normal to inspection, tenderness Location: of the medial joint line and abnormal ROM Details: held in an abnormal fashion Details: in flexion and pain with passive ROM Details: with extension; no swelling, no ecchymosis and no deformity and foot Details: vascular exam Details: dorsalis pedis pulse present, posterior tibial pulse present and normal capillary refill Psych Mental Status: mental status grossly normal Affect: normal affect Thought process: Normal thought process present Medications Administered Discontinued Medications Generic Name Dose Route Start Last Admin Trade Name Freq PRN Reason Stop Dose Admin Oxycodone HCl 5 mg 04/02/23 10:49 04/02/23 11:08 Oxycodone Hcl Immed Release 5 Mg Tablet PO 04/02/23 10:50 5 mg ONCE ONE Administration Medical Decision Making Medical Decision Making [facility] Narrative: Patient is a 47-year-old Mongolian-speaking female with history of rheumatoid arthritis, DVT currently on Eliquis, PAD, SLE presenting to the emergency department with severe left knee and lower leg pain since this morning. On exam patient is awake, A+Ox3, tearful, BP elevated but patient states did not take her meds this morning, VS otherwise WNL, afebrile, normal neurological exam without focal deficits, increased pain with passive ROM of left knee, left calf tenderness, no erythema or warmth, no palpable cords, 2+ PT and DP pulses. Given reported symptoms and physical exam findings, initial differential includes exacerbation of RA, osteoarthritis of knee, DVT. X-ray notable for no acute abnormalities. No DVT on ultrasound. My interpretation is in agreement with the radiologist's interpretation. Patient reports improvement of symptoms after oxycodone, but worsening of pain after ultrasound. Results discussed with patient and significant other, will provide Subhash wrap for support, patient reports that she has a walker as well as a cane for ambulation at home and is not interested in crutches. Discussed with patient that we will refer her to Orthopedics for further evaluation of her pain. Return precautions discussed at bedside. Review of [facility] shows that patient had a 28 day supply of Percocet filled on 03/11, so will defer from prescribing additional opiates. Advised patient to utilize Tylenol for pain and apply ice several times daily. Instructed patient to follow-up with primary care provider as well. Patient and significant other verbalized understanding of and agreement with plan. Differential Diagnosis Differential Diagnoses: The differential diagnosis associated with the presentation includes As per MDM. Independent Interpretation I performed an independent interpretation of an: Plain X-Ray Interpretation: no acute abnormalities on xray, no DVT on U/S Radiology Impression Discussion of test interpretation with radiology: I have reviewed the radiologist's reading. Radiologist Impression: XR/XR knee LT 4V IMPRESSION: No acute visible fracture or dislocation. US/US venous duplex LE LT IMPRESSION: No DVT demonstrated in the left lower extremity. ? Independent Historian Clinical information obtained from an independent historian. History obtained from or confirmed by: Spouse External Record Review External record reviewed: Inpatient record, Office record and Outpatient record Chronic Conditions Patient?s care impacted by: Other Discharge Plan Discharge Clinical Impression: Knee pain, left Patient Disposition: Home, Self-Care Instructions: Knee Pain (ED), R.I.C.E. Treatment (ED) Additional Instructions: Usted wilder sido evaluado en el departamento de emergencias hoy por dolor de rodilla. Almanzar evaluaci?n, incluidas radiograf?as y ecograf?as, no encontr? evidencia de afecciones m?dicas que requirieran intervenci?n urgente en coral momento. Le ofrecimos muletas para que las usara mientras se curaba almanzar rodilla, arpit usted las rechaz?, ya que tiene un andador y un darya?n en casa. Descanse, aplique hielo, eleve la rodilla y reanude addie actividades normales seg?n lo tolere. Utilice la envoltura SUBHASH proporcionada nancy soporte. Le recomendamos luke 650 mg de Tylenol cada 6 horas seg?n sea necesario para el dolor. Lo derivan a ortopedia; comun?quese con almanzar consultorio a primera hora del brenda por la ma?ngoc para programar moira jose david para moira evaluaci?n adicional de addie s?ntomas. Programe moira jose david de seguimiento con almanzar proveedor de atenci?n primaria esta semana. Regrese al departamento de emergencias si experimenta un empeoramiento del dolor, entumecimiento, hormigueo, cambio de color en la pierna o cualquier otro s?ntoma preocupante. Prescriptions: No Action (DME) adhesive bandage 1 bandage See Rx Instructions .ROUTE .MEDSUPPLY Qty: 20 5RF Rx Instructions: Use after Methotrexate injection Incruse Ellipta 62.5 mcg/actuation blister with device 1 inh PO DAILY Qty: 30 6RF ascorbate calcium (vitamin C) 500 mg tablet 1 g PO DAILY 90 Days Qty: 180 2RF vitamin A palmitate 3,000 mcg (10,000 unit) tablet 10,000 unit PO DAILY Qty: 90 1RF methotrexate sodium 2.5 mg tablet 20 mg PO QWEEK Qty: 32 2RF folic acid 1 mg tablet 1 mg PO QAM Qty: 90 2RF cholecalciferol (vitamin D3) [Vitamin D3] 25 mcg (1,000 unit) capsule 25 mcg PO QAM Qty: 90 2RF gabapentin 400 mg capsule 400 mg PO TID trazodone 150 mg tablet 1 tab PO BEDTIME PRN (Reason: Sleep) risperidone 1 mg tablet 0.5 mg PO DAILY PRN (Reason: Agitation) diclofenac sodium 1 % gel 4 g topical QID Qty: 100 0RF Rx Instructions: apply to single knee, ankle, foot; for foot includes sole/toes/top of foot famotidine 20 mg tablet 1 tab PO BID@1200,2100 ferrous sulfate [FeroSul] 325 mg (65 mg iron) tablet 1 tab PO QAM albuterol sulfate [ProAir HFA] 90 mcg/actuation HFA aerosol inhaler 2 puff PO Q4-6H PRN (Reason: Wheezing) duloxetine 60 mg capsule,delayed release(DR/EC) 1 cap PO BID ursodiol 500 mg tablet 500 mg PO BID Qty: 90 1RF cyclobenzaprine 10 mg tablet 10 mg PO TID PRN (Reason: muscle spasm) Qty: 10 0RF lidocaine [Lidoderm] 5 % adhesive patch,medicated 1 patch topical DAILY Qty: 15 0RF Rx Instructions: leave on most painful area for up to 12 hrs nystatin 100,000 unit/gram powder 1 appl topical BID Qty: 30 0RF oxycodone 5 mg capsule 5 mg PO BID PRN (Reason: pain) Qty: 6 0RF Rx Instructions: Partial Fill upon patient request. docusate sodium 100 mg capsule 100 mg PO BEDTIME PRN (Reason: Constipation) hydrochlorothiazide 12.5 mg tablet 12.5 mg PO DAILY hydrocortisone 2.5 % cream topical BID alprazolam 1 mg tablet 1 mg PO BEDTIME PRN (Reason: Anxiety) naloxone 4 mg/actuation spray,non-aerosol 0 spray intranasal PRN (Reason: Opiate Reversal) nicotine 21 mg/24 hr patch 24 hour 0 patch topical Eliquis 5 mg tablet 5 mg PO BID acetaminophen 500 mg tablet 500 - 1,000 mg PO Q8-10H PRN (Reason: pain) Qty: 100 4RF prednisone 2.5 mg tablet 7.5 mg PO DAILY Qty: 90 1RF benztropine 0.5 mg tablet 0.5 mg PO QAM pantoprazole 40 mg tablet,delayed release (DR/EC) 40 mg PO DAILY Qty: 90 1RF Referrals: [facility] [place] Orthopedic Surgeons [Provider Group] Print Language: Mongolian
[2023-04-02] MEDS: oxyCODONE HCl Immed Release 5 MG TABLET PO (11:08)
[2023-04-02 12:19] VITALS: BP 113/67; PULSE 83; RESP 18; TEMP 36.4; O2SAT 99
== END 2023-04-02 14:51 | disposition home or self-care (01) ==
PROVIDERS: Emergency Provider Emergency Medicine; PCP General Practice
DX: M25.562 Pain in left knee (principal); M79.662 Pain in left lower leg; M32.9 Systemic lupus erythematosus, unspecified; C81.90 Hodgkin lymphoma, unspecified, unspecified site; F12.90 Cannabis use, unspecified, uncomplicated; Z86.718 Personal history of other venous thrombosis and embolism; Z85.830 Personal history of malignant neoplasm of bone; Z85.29 Personal history of malignant neoplasm of other respiratory and intrathoracic organs; Z85.118 Personal history of other malignant neoplasm of bronchus and lung; Z92.21 Personal history of antineoplastic chemotherapy; Z87.891 Personal history of nicotine dependence; Z90.49 Acquired absence of other specified parts of digestive tract; Z98.51 Tubal ligation status; Z79.899 Other long term (current) drug therapy; Z79.01 Long term (current) use of anticoagulants
CPT/HCPCS: 73564; 93971; 99284

== ENCOUNTER 2023-04-19 12:32 | Outpatient (AMB) | payer MEDICAID, SELFPAY ==
--- NOTE | 2023-04-19 12:53 | MHC.OFFVIS ---
Intake Vital Signs 04/19/23 12:59 Height 5 ft 6 in Weight 197 lb BMI 31.8 Intake Visit Reasons: New Prob- Knee pain, left Intake Note: Ginette a 47 year old female who presents today with complaints of progressively worsening left knee pain and giving way. Patient states that she injured her left knee several years ago. She twisted her knee and had acute onset of pain. Since that time her symptoms have gotten worse in spite of continued non operative treatments. She does walk with a walker. She states that her left knee will give out several times per day. She has tried Tylenol and anti-inflammatory medicines which gave her minimal relief. She has also done physical therapy which aggravated her pain. She has had injections in the past which gave her only mild relief. Associate Music Professor Name: Marcia ID#[id number] Allergies almond [ALMONDS] Allergy (Severe, Verified 04/19/23 13:07) ANAPHYLAXIS adhesive tape [ADHESIVE TAPE] Allergy (Intermediate, Verified 04/19/23 13:07) RASH morphine [MORPHINE] Allergy (Intermediate, Verified 04/19/23 13:07) GI UPSET, difficulty breathing tramadol [TRAMADOL] Adverse Reaction (Unknown, Verified 04/19/23 13:07) NAUSEA & VOMITING Medication List - Last Reconciled 04/19/23 by Segundo Drew MD acetaminophen 500 - 1,000 mg (1 - 2 x 500 mg) PO Q8-10H PRN adhesive bandage Use after Methotrexate injection albuterol sulfate 90 mcg/actuation (ProAir HFA) 2 puffs PO Q4-6H PRN alprazolam 1 mg PO BEDTIME PRN apixaban (Eliquis) 5 mg PO BID ascorbate calcium (vitamin C) 1 g (2 x 500 mg) PO DAILY 90 days benztropine 0.5 mg PO QAM cholecalciferol (vitamin D3) (Vitamin D3) 25 mcg PO QAM cyclobenzaprine 10 mg PO TID PRN diclofenac sodium 1% 4 grams topical QID docusate sodium 100 mg PO BEDTIME PRN duloxetine 1 cap PO BID famotidine 1 tab PO BID@1200,2100 ferrous sulfate (FeroSul) 1 tab PO QAM folic acid 1 mg PO QAM gabapentin 400 mg PO TID hydrochlorothiazide 12.5 mg PO DAILY hydrocortisone 2.5% appl topical BID lidocaine 5% (Lidoderm) 1 patch topical DAILY methotrexate sodium 20 mg (8 x 2.5 mg) PO QWEEK naloxone 4 mg/actuation 0 sprays intranasal PRN nicotine 0 patches topical nystatin 1 appl topical BID oxycodone 5 mg PO BID PRN pantoprazole 40 mg PO DAILY prednisone 7.5 mg (3 x 2.5 mg) PO DAILY risperidone 0.5 mg PO DAILY PRN trazodone 1 tab PO BEDTIME PRN umeclidinium 62.5 mcg/actuation (Incruse Ellipta) 1 inh PO DAILY ursodiol 500 mg PO BID vitamin A palmitate 10,000 units PO DAILY [facility] Medical History (Updated 04/19/23 @ 13:17 by Segundo Drew MD) Knee pain, left Depression Hx of peripheral pulmonary artery stenosis History of chemotherapy Cancer of heart Bone cancer Lung cancer Bleeding hemorrhoid Degeneration, intervertebral disc, lumbar Chronic GERD Degeneration of intervertebral disc at C4-C5 level Osteoarthritis of spine with radiculopathy, lumbar region Fibromyalgia Esophageal dysphagia Vitamin D deficiency Systemic lupus erythematosus Seropositive rheumatoid arthritis Rheumatoid arthritis involving multiple sites Gallstones Stress incontinence in female Nocturia Urgency-frequency syndrome De Quervain's disease (tenosynovitis) Depressive disorder Acute arthritis Hodgkin disease Surgical History History of angioplasty of vein History of biopsy H/O tubal ligation Hx of endoscopy Hx laparoscopic cholecystectomy Hx of colonoscopy History of esophagogastroduodenoscopy (EGD) History of repair of inguinal hernia History of lymph node dissection of left axilla Family History Maternal Grandmother Ovarian cancer Social History Household Members: Spouse Housing: Apartment Are you a primary child care supervisor to a significant other at home: No Do 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 have 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 or other home services: Yes (senior sustainability consultant) Alcohol intake: never Patient Tobacco Use Status: Never used Tobacco Tobacco use type: Cigarette Substance Use Type: Marijuana Advance Directives Date on File: 09/23/20 service: No Current occupational status: disabled 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 Physical Exam Vital Signs: BMI result Body Mass Index 31.8 Const Other: Well-nourished well-developed very friendly female awake alert and oriented x3 in no acute distress Extrem Other: Bilateral lower extremity examination shows good capillary refill, no skin lesions noted, normal sensation light touch Left knee examination shows a minimal effusion, minimal crepitus with range of motion, tenderness along her medial joint line, positive Ottoniel's test, no instability Results Reviewed Results Reviewed: X-rays of the patient's left knee show mild diffuse joint space narrowing, no acute bony abnormalities Assessment & Plan Assessment & Plan (1) Knee pain, left: Code(s): M25.562 - Pain in left knee Plan: Ms. Ovidio Lacy presents with progressively worsening left knee pain and mechanical symptoms most likely due to a tear of her medial meniscus. Thus, I will send the patient for an MRI of her left knee for further evaluation. I will see her back once the MRI is completed to discuss the findings and treatment options. She will continue with her activity modifications in the meantime. Feel free to call me at any time should questions regarding her orthopedic management arise. Thank you very much for asking me to see this very friendly patient. I spent 22 minutes in reviewing the patient's records and imaging studies, seeing the patient and documenting in the medical record. Orders: Orders MR knee LT wo con Today M25.562 - Pain in left knee Coding Level of Care Code Est Pt Level 2 (49236) Diagnoses Knee pain, left M25.562
[2023-04-19 12:59] VITALS: BMI 31.8
== END 2023-04-19 13:14 | disposition home or self-care (01) ==
PROVIDERS: PCP General Practice; Visit Provider Orthopaedic Surgery
DX: M25.562 Pain in left knee (principal)
CPT/HCPCS: 99212

== ENCOUNTER → 2023-04-19 12:32 | Outpatient (BNVA) | payer MEDICAID, SELFPAY | PROVIDERS: PCP General Practice; Visit Provider Orthopaedic Surgery | DX: M25.562 Pain in left knee (principal) | CPT/HCPCS: 99212 ==

== ENCOUNTER 2023-04-20 08:48 | Inpatient (IN) | payer MEDICAID, SELFPAY ==
--- NOTE | ~2023-04-20 | XR_ITS ---
EXAMINATION: XR CHEST CLINICAL INFORMATION: Status post chest pain COMPARISON: Chest x-ray 03/30/2023 TECHNIQUE: 2 views of the chest were obtained. FINDINGS: Cardiac silhouette is normal in size. The lungs are well aerated. There is no lobar consolidation. No pleural effusion or pneumothorax. Surgical clips project over the right axilla. Mild degenerative changes of the spine. XR/XR chest 2V IMPRESSION: No acute pulmonary pathology.
--- NOTE | ~2023-04-20 | US_ITS ---
EXAMINATION: US VENOUS ULTRASOUND WITH DOPPLER LOWER EXTREMITY, RIGHT CLINICAL INFORMATION: Right lower extremity pain and swelling COMPARISON: DVT study right leg 09/15/2022 TECHNIQUE: Ultrasound of the deep veins is performed from the hip to the calf with compression sonography and color and pulse Doppler assessment. Spectral analysis with color-flow imaging is performed. FINDINGS: There is normal venous compression and respiratory variation and augmented flow. The visualized common femoral vein, superficial femoral vein, profunda femoral vein, popliteal vein, and the trifurcation region shows no evidence of deep venous thrombosis. There is no significant popliteal fossa cyst. If the patient's symptoms persist, followup ultrasound in 5 days 7 days might be of value to exclude proximal propagation from a non-visualized calf vein. US/US venous duplex LE RT IMPRESSION: No DVT demonstrated in the right lower extremity.
--- NOTE | ~2023-04-20 | CT_ITS ---
EXAMINATION: CT ANGIOGRAM ABDOMEN AND PELVIS WITH RUN-OFF CLINICAL INFORMATION: Peripheral vascular disease. History of left common iliac artery occlusion and right superficial femoral artery stent COMPARISON: CTA from 03/09/2022 and angiogram from 06/09/2022 TECHNIQUE: Multiple axial images were obtained through the abdomen, pelvis, and lower extremities following the administration of 99 mL of Omnipaque 350 intravenous contrast. Sagittal, coronal, and MIP oblique sagittal reformatted images were obtained on the CT workstation, uploaded to PACS, and reviewed. Images were evaluated on independent dedicated 3-D workstation and 3-D images were reconstructed with concurrent radiologist supervision and subsequently interpreted. This CT examination was performed using dose optimization techniques as appropriate, variously including the following: *Automated exposure control *Adjustment of mA and/or kV according to patient size (this includes techniques or standardized protocols for targeted exams where dose is matched to indication/reason for exam; i.e. extremities or head) *Use of iterative reconstruction technique DLP: 811.29 mGy-cm FINDINGS: VASCULATURE: Aorta: Normal in caliber. Scattered calcified plaque without significant stenosis. Celiac axis, superior mesenteric artery, inferior mesenteric artery and bilateral renal arteries are patent without significant stenosis. Right iliac arteries: Common iliac, external iliac and internal iliac arteries are patent with scattered atherosclerotic plaque without significant stenosis. Left iliac arteries: There is chronic occlusion of the left common iliac artery which is unchanged compared to the prior CTA. Reconstituted flow is seen within the left external iliac and internal iliac arteries. The external iliac artery is small in caliber without focal stenosis Right lower extremity: Common femoral artery demonstrates atherosclerotic plaque without significant stenosis. There is occlusion of the right superficial femoral artery beginning approximately 1 cm from the ostium and extending through the adductor canal. This is new compared to the prior exams. There is a stent seen in the distal superficial femoral artery which is occluded. Reconstituted flow is seen within the P1 segment of the popliteal artery just distal to the stent. The popliteal artery is otherwise patent without focal stenosis. Below knee runoff demonstrates patent flow in the anterior tibial artery, posterior tibial artery and peroneal artery without significant stenosis. Left lower extremity: Common femoral artery demonstrates atherosclerotic plaque without significant stenosis. Superficial femoral artery is patent without significant stenosis. Popliteal artery is patent without significant stenosis. Below knee runoff demonstrates patent flow in the anterior tibial artery, and peroneal artery without significant stenosis. There is atresia of the posterior tibial artery. Peroneal artery continues on into the foot as the plantar arteries. NONVASCULAR: Lung bases are clear. Status post cholecystectomy Solid abdominal organs are unremarkable. Bowel loops are unremarkable. No free fluid seen in the abdomen and pelvis. Urinary bladder is unremarkable. No pathologic lymphadenopathy or mass lesion seen in the abdomen and pelvis. Osseous structures are intact. CT/CT angio abd aorta runoff IMPRESSION: 1. Chronic occlusion of the left common iliac artery. Reconstituted flow is seen in the left external iliac and internal iliac arteries. 2. New occlusion of the proximal right superficial femoral artery. There is also occlusion of the distal right superficial femoral artery stent. Reconstituted flow is seen in the proximal popliteal artery just distal to the stent. Patent flow seen in the right below-knee runoff vessels. 3. 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 Patent flow in the left lower extremity.
--- NOTE | ~2023-04-20 | US_ITS ---
EXAMINATION: NONINVASIVE ASSESSMENT OF THE ARTERIES OF THE RIGHT LOWER EXTREMITY Danie Berumen MD CLINICAL INFORMATION: Right lower extremity pain with purple toes and decreased pulses TECHNIQUE: Right lower extremity duplex ultrasound was performed with velocity measurements and waveform analysis in the common femoral arteries, profunda femoris arteries, proximal mid and distal superficial femoral arteries, popliteal arteries and tibial vessels. This study was performed only at rest. COMPARISON: Bilateral lower extremity PVR study 09/22/2022 FINDINGS: Velocities in cm/sec and phasicity as well as the presence of plaque are reported below. RIGHT LEG: Common Femoral: 204, biphasic Profunda Femoris: 93, biphasic Proximal SFA: 67, biphasic Mid SFA: Occluded -this occlusion is new when compared to the prior arterial study from 09/22/2022 Distal SFA: 31, Monophasic Popliteal: 34, Monophasic Posterior tibial artery: 44, monophasic Dorsalis pedis artery: 31, monophasic Anterior tibial artery: 32, monophasic Incidental note made of an Achilles tendon measuring 6.4 mm on the right and 4.0 mm on the left. US/US arterial duplex LE RT IMPRESSION: 1. There is an occluded SFA with monophasic runoff seen below that level. 2. Incidental note is made of a prominent Achilles tendon on the right.
[2023-04-20 09:39] VITALS: BP 130/95; PULSE 69; RESP 19; TEMP 36.6; O2SAT 100; BMI 23.9
--- NOTE | 2023-04-20 09:42 | ECG_ITS ---
Test Reason : WEAKNESS Blood Pressure : / mmHG Vent. Rate : 066 BPM Atrial Rate : 066 BPM P-R Int : 168 ms QRS Dur : 106 ms QT Int : 418 ms P-R-T Axes : 061 -44 047 degrees QTc Int : 438 ms Normal sinus rhythm Left axis deviation Moderate voltage criteria for LVH, may be normal variant ( R in aVL , Remy product ) Septal infarct , age undetermined Abnormal ECG When compared with ECG of 26-MAR-2023 12:00, Incomplete right bundle branch block is no longer Present Referred By: Generic ED Physician Electronically Signed By:MARITZA GUAMAN
[2023-04-20 10:13] LABS: Hematocrit 39.4 % (37.0-47.0); Hemoglobin 12.5 g/dl (12.0-16.0); Mean Corpuscular HGB Conc 31.7 g/dl (31.0-35.0); Mean Corpuscular Volume 94.7 fL (80.0-98.0); Mean Platelet Volume 10.4 fL (9.4-12.3); PLT CLUMP 1; Red Blood Count 4.16 X10*6/uL (4.20-5.50); Red Cell Distribution Width 13.4 % (11.0-16.0); WBC ABN SCTR FOR CBC 1
[2023-04-20 10:24] LABS: INTERNATIONAL NORM RATIO 0.9 (0.9-1.1); Prothrombin Time 10.8 SEC (11.1-13.3)
[2023-04-20 10:33] LABS: B Type Natriuretic Peptide 37 pg/mL (<100)
[2023-04-20 10:49] LABS: Anion Gap 15 (12-20); Blood Urea Nitrogen 12 mg/dL (9-16); Calcium 9.7 mg/dL (8.4-10.2); Carbon Dioxide 20 mmol/L (22-29); Chloride 108 mmol/L (96-108); Creatinine Clr Calc Pharmacy 91.4; Estimated Glomerular Filt Rate > 60; Glucose Random 87 mg/dL (60-115); Potassium 4.7 mmol/L (3.3-5.1); Sodium 138 mmol/L (135-145); Troponin-I High Sensitivity < 2.7 ng/L (<3.5-17.0)
[2023-04-20 11:16] LABS: Band Neutrophils Percent 4 % (3-5); Basophils Percent Manual 1 % (0-2); Eosinophils Percent Manual 2 % (0-4); Lymphocytes Percent Manual 26 % (20-40); Monocytes Percent Manual 8 % (2-11); Neutrophils Percent Manual 59 % (45-73)
[2023-04-20 11:17] LABS: RBC Morphology NORMAL
[2023-04-20 11:20] LABS: Platelet Estimate NORMAL (NORMAL); Platelet Morphology Comment NORMAL
[2023-04-20 11:21] LABS: Basophils Abs Manual 0.1 X10*3/uL (0.0-0.2); Eosinophils Absolute Manual 0.1 X10*3/uL (0.0-0.4); Lymphocytes Absolute Manual 1.4 X10*3/uL (1.2-4.9); Monocytes Absolute Manual 0.4 X10*3/uL (0.1-1.2); Neutrophils Absolute Manual 3.4 X10*3/uL (2.0-8.3); Platelet Count 239 X10*3/uL (160-400); White Blood Count 5.4 X10*3/uL (4.8-10.8)
--- NOTE | 2023-04-20 11:29 | ED.GENADULT ---
HPI - General Adult General Chief complaint: General Medical Stated complaint: pain all over Time Seen by Provider: 04/20/23 11:25 Source: patient, old records reviewed and food order expediter Mode of arrival: ambulatory Limitations: no limitations History of Present Illness HPI narrative: 47 yo female with PMH of RA on methotrexate, lupus, PAD, HARINI, opiate dependence on chronic percocet, DVT on eliquis, here with c/o R hand pain and then since last night R foot pain and she feels her R great toe was purple and painful and the foot is swollen. She reports she is always compliant with her DOAC. She notes her foot is so painful she cannot walk. complaint: pain in R foot Onset (ago): day(s) (1) Location: right and lower extremity Radiation: non-radiation Severity: severe Quality: crushing and constant Pain Consistency: constant Relieving factors: none Exacerbating factors: movement Associated symptoms: other (she states her toe was purple last night) Treatments prior to arrival: none Related Data Home Medications Medication Instructions Recorded Confirmed albuterol sulfate 90 mcg/actuation 2 puff PO Q4-6H PRN Wheezing 10/02/21 04/19/23 aerosol inhaler (ProAir HFA) duloxetine 60 mg capsule,delayed 1 cap PO BID 10/02/21 04/19/23 release famotidine 20 mg tablet 1 tab PO BID@1200,2100 10/02/21 04/19/23 ferrous sulfate 325 mg (65 mg 1 tab PO QAM 10/02/21 04/19/23 iron) tablet (FeroSul) gabapentin 400 mg capsule 400 mg PO TID 10/22/21 04/19/23 risperidone 1 mg tablet 0.5 mg PO DAILY PRN Agitation 10/22/21 04/19/23 trazodone 150 mg tablet 1 tab PO BEDTIME PRN Sleep 10/22/21 04/19/23 hydrochlorothiazide 12.5 mg tablet 12.5 mg PO DAILY 03/02/22 04/19/23 docusate sodium 100 mg capsule 100 mg PO BEDTIME PRN Constipation 04/19/22 04/19/23 apixaban 5 mg tablet (Eliquis) 5 mg PO BID 09/22/22 04/19/23 alprazolam 1 mg tablet 1 mg PO BEDTIME PRN Anxiety 12/10/22 04/19/23 hydrocortisone 2.5 % topical cream appl topical BID 12/10/22 04/19/23 naloxone 4 mg/actuation nasal spray 0 spray intranasal PRN Opiate 12/10/22 04/19/23 Reversal nicotine 21 mg/24 hr daily 0 patch topical 12/10/22 04/19/23 transdermal patch benztropine 0.5 mg tablet 0.5 mg PO QAM 01/17/23 04/19/23 Previous Rx's Medication Instructions Recorded adhesive bandage 1 #20 ea 05/21/20 ursodiol 500 mg tablet 500 mg PO BID #90 tabs 10/08/21 diclofenac sodium 1 % topical gel 4 g topical QID #100 grams 03/28/22 cyclobenzaprine 10 mg tablet 10 mg PO TID PRN muscle spasm #10 08/20/22 tabs lidocaine 5 % topical patch 1 patch topical DAILY #15 ea 08/20/22 (Lidoderm) acetaminophen 500 mg tablet 500 - 1,000 mg (1 - 2 x 500 mg) PO 09/22/22 Q8-10H PRN pain #100 tabs nystatin 100,000 unit/gram topical 1 appl topical BID #30 grams 11/10/22 powder oxycodone 5 mg capsule 5 mg PO BID PRN pain #6 caps 11/22/22 umeclidinium 62.5 mcg/actuation 1 inh PO DAILY #30 ea 11/29/22 blister powder for inhalation (Incruse Ellipta) ascorbate calcium (vitamin C) 500 1 g (2 x 500 mg) PO DAILY 90 days 12/21/22 mg tablet #180 tabs vitamin A palmitate 3,000 mcg 10,000 unit PO DAILY #90 tabs 12/21/22 (10,000 unit) tablet pantoprazole 40 mg tablet,delayed 40 mg PO DAILY #90 tabs 01/17/23 release methotrexate sodium 2.5 mg tablet 20 mg (8 x 2.5 mg) PO QWEEK #32 01/24/23 tabs folic acid 1 mg tablet 1 mg PO QAM #90 tabs 01/31/23 cholecalciferol (vitamin D3) 25 25 mcg PO QAM #90 caps 02/28/23 mcg (1,000 unit) capsule (Vitamin D3) prednisone 2.5 mg tablet 7.5 mg (3 x 2.5 mg) PO DAILY #90 03/28/23 tabs Allergies Allergy/AdvReac Type Severity Reaction Status Date / Time almond [ALMONDS] Allergy Severe ANAPHYLAXIS Verified 04/20/23 09:39 adhesive tape [ADHESIVE TAPE] Allergy Intermediate RASH Verified 04/20/23 09:39 morphine [MORPHINE] Allergy Intermediate GI UPSET, Verified 04/20/23 09:39 difficulty breathing tramadol [TRAMADOL] AdvReac Unknown NAUSEA & Verified 04/20/23 09:39 VOMITING Review of Systems Review of Systems: Constitutional : No Fever, No Chills ENT/Mouth : No Ear Pain, No Hoarseness, No sore throat Eyes: No Eye Pain, No Swelling, No Redness, No Foreign Body Cardiovascular : No Chest Pain, No SOB Respiratory : No Cough, No Dyspnea Gastrointestinal : No Nausea, No Vomiting, No Diarrhea, No abdominal Pain Genitourinary : No Dysuria, No Hematuria Musculoskeletal : positive joint pain, No Myalgias, pos Joint Swelling Skin : No Skin lacerations, No rash Neuro : No Weakness, No Numbness, No Loss of Consciousness, No Dizziness, No Headache Psych : No Anxiety/Panic, No Depression All other systems reviewed and are negative [facility] Past Medical History Attestation statement: The following information was validated with the patient. Source: old records reviewed Medical History Knee pain, left Depression Hx of peripheral pulmonary artery stenosis History of chemotherapy Cancer of heart Bone cancer Lung cancer Bleeding hemorrhoid Degeneration, intervertebral disc, lumbar Chronic GERD Degeneration of intervertebral disc at C4-C5 level Osteoarthritis of spine with radiculopathy, lumbar region Fibromyalgia Esophageal dysphagia Vitamin D deficiency Systemic lupus erythematosus Seropositive rheumatoid arthritis Rheumatoid arthritis involving multiple sites Gallstones Stress incontinence in female Nocturia Urgency-frequency syndrome De Quervain's disease (tenosynovitis) Depressive disorder Acute arthritis Hodgkin disease Surgical History History of angioplasty of vein History of biopsy H/O tubal ligation Hx of endoscopy Hx laparoscopic cholecystectomy Hx of colonoscopy History of esophagogastroduodenoscopy (EGD) History of repair of inguinal hernia History of lymph node dissection of left axilla Family History Family History Maternal Grandmother Ovarian cancer Social History Social History Household Members: Spouse Housing: Apartment Are you a primary care manager cna to a significant other at home: No Do 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 have 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 or other home services: Yes (crm consultant) Alcohol intake: never Patient Tobacco Use Status: Never used Tobacco Tobacco use type: Cigarette Substance Use Type: Marijuana Advance Directives: No Advance Directives Information Provided: No Advance Directives Date on File: 09/23/20 service: No Current occupational status: disabled 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 Oriented X3. No acute distress. anxious Eyes: Pupils equal, round and reactive to light. ENT: Pharynx normal. Neck: Normal inspection. Neck supple. CVS: Normal heart rate and rhythm. Pulses normal. Respiratory: No respiratory distress. Breath sounds normal. Abdomen: Soft and nontender. Skin: Skin warm and dry. Normal skin color. Normal skin turgor. Extremities: 1+ bilateral edema to both ankle areas - both feet are warm and well perfused she has 1+ DP/PT pulses bilaterally her R foot is very tender to touch I do not see a purple toe but foot is very sensitive to touch and much more painful compared to the left. Her R great toenail is thickened but no signs of infection in R foot. Neuro: Oriented X 3. No motor deficit. No sensory deficit. Medications Administered Discontinued Medications Generic Name Dose Route Start Last Admin Trade Name Freq PRN Reason Stop Dose Admin Nicotine 21 mg 04/20/23 14:09 04/20/23 14:51 Nicotine 21 Mg Patch.Td24 TRANSDERMA 04/20/23 14:10 21 mg ONCE ONE Administration Oxycodone HCl 10 mg 04/20/23 11:41 04/20/23 11:59 Oxycodone Hcl Immed Release 5 Mg Tablet PO 04/20/23 11:42 10 mg ONCE ONE Administration Medical Decision Making Medical Decision Making MDM Narrative: 47 yo female with PMH of RA on methotrexate, lupus, PAD, HARINI, opiate dependence on chronic percocet, DVT on eliquis, here with R foot pain and states she can barely walk on it last night foot was more swollen and she had a purple hue to the toe - she is not in afib on EKG. She will need DVT study to assess for new clot reports no misses of DOAC. She also has decreased pulses in the foot but is warm I do not see signs of infection. At this time arterial study ordered. If negative stable for DC with her chronic pain management. Differential Diagnosis Differential Diagnoses: The differential diagnosis associated with the presentation includes Admission/Observation Consideration of admission/observation: Escalation of care including admission/observation considered plan to admit stop eliquis and start heparin Consult Healthcare Provider Management of the patient was discussed with: Hospitalist (agrees to admit) and Shipyard Painting Supervisor (Ellen stop eliquis and start heparin gtt hold bolus - start now) Lab Data MDM Lab Attestation statement: I reviewed the patient's lab results. 04/20/23 14:10 04/20/23 10:06 Labs: Lab Results 04/20/23 04/20/23 Range/Units 10:06 14:10 WBC 5.4 5.3 (4.8-10.8) X10*3/uL RBC 4.16 L 4.02 L (4.20-5.50) X10*6/uL Hgb 12.5 12.3 (12.0-16.0) g/dl Hct 39.4 38.2 (37.0-47.0) % MCV 94.7 95.0 (80.0-98.0) fL MCH 30.0 30.6 (27.0-33.0) pg MCHC 31.7 32.2 (31.0-35.0) g/dl RDW 13.4 13.4 (11.0-16.0) % Plt Count 239 284 (160-400) X10*3/uL MPV 10.4 10.0 (9.4-12.3) fL Immature Gran % (Auto) Cancelled Neut % (Auto) Cancelled Lymph % (Auto) Cancelled [place] % (Auto) Cancelled Eos % (Auto) Cancelled Baso % (Auto) Cancelled Lymph # (Auto) Cancelled [place] # (Auto) Cancelled Eos # (Auto) Cancelled Baso # (Auto) Cancelled Abs Immat Gran (auto) Cancelled Absolute Neuts (auto) Cancelled Absolute Nucleated RBC 0.000 0.000 (0.0-0.012) X10*3/uL Nucleated RBC % (auto) 0.0 0.0 (0.0-0.2) /100WBC Neutrophils % (Manual) 59 (45-73) % Band Neutrophils % 4 (3-5) % Lymphocytes % (Manual) 26 (20-40) % Monocytes % (Manual) 8 (2-11) % Eosinophils % (Manual) 2 (0-4) % Basophils % (Manual) 1 (0-2) % Abs Neuts (Manual) 3.4 (2.0-8.3) X10*3/uL Lymphocytes # (Manual) 1.4 (1.2-4.9) X10*3/uL Monocytes # (Manual) 0.4 (0.1-1.2) X10*3/uL Eosinophils # (Manual) 0.1 (0.0-0.4) X10*3/uL Basophils # (Manual) 0.1 (0.0-0.2) X10*3/uL Platelet Estimate NORMAL (NORMAL) Plt Morphology Comment NORMAL RBC Morphology NORMAL PT 10.8 L D (11.1-13.3) SEC INR 0.9 (0.9-1.1) aPTT Heparin Protocol 30.4 L (53-77.9) SEC Sodium 138 (135-145) mmol/L Potassium 4.7 D (3.3-5.1) mmol/L Chloride 108 (96-108) mmol/L Carbon Dioxide 20 L (22-29) mmol/L Anion Gap 15 (12-20) BUN 12 (9-16) mg/dL Creatinine 0.72 (0.5-1.4) mg/dL Estim Creat Clear Calc 91.4 Estimated GFR > 60 Random Glucose 87 (60-115) mg/dL Calcium 9.7 D (8.4-10.2) mg/dL Troponin I High Sens < 2.7 (<3.5-17.0) ng/L B-Natriuretic Peptide 37 (<100) pg/mL Independent Interpretation I performed an independent interpretation of an: EKG, Plain X-Ray (no edema, no pneumonia) and Ultrasound (SFA occlusion) Interpretation: Rate: 66 Rhythm: NSR [place]: left, LVH Normal P waves. Normal JAMES. Normal QRS complex. ST T wave : normal no JHON qTC: normal prior studies: no acute ischemia The study has been interpreted contemporaneously by me. . Radiology Impression Discussion of test interpretation with radiology: I have reviewed the radiologist's reading. External Record Review External record reviewed: Inpatient record Critical Care Time Critical Care Time Critical Care Time: Yes Total Critical Care Time: 31 Attestation: acute intervention and heparin for arterial occlusion, vascular consult. I attest to this time spent taking care of the patient Discharge Plan Discharge Clinical Impression: Superficial femoral artery occlusion Achilles tendinitis Qualifiers: Laterality: right Qualified Code(s): M76.61 - Achilles tendinitis, right leg Patient Disposition: Admitted As Inpatient
[2023-04-20] MEDS: oxyCODONE HCl Immed Release 5 MG TABLET 10 MG PO ×3 (11:59→21:42)
[2023-04-20 14:02] VITALS: BP 115/65; PULSE 67; RESP 18; O2SAT 96
[2023-04-20 14:16] LABS: Hematocrit 38.2 % (37.0-47.0); Hemoglobin 12.3 g/dl (12.0-16.0); Mean Corpuscular HGB Conc 32.2 g/dl (31.0-35.0); Mean Corpuscular Hemoglobin 30.6 pg (27.0-33.0); Platelet Count 284 X10*3/uL (160-400); Red Blood Count 4.02 X10*6/uL (4.20-5.50); Red Cell Distribution Width 13.4 % (11.0-16.0); White Blood Count 5.3 X10*3/uL (4.8-10.8)
[2023-04-20 14:24] LABS: PTT Heparin Drip 30.4 SEC (53-77.9)
[2023-04-20 14:35] VITALS: BMI 32.1
[2023-04-20] MEDS: Nicotine 21 MG PATCH.TD24 TRANSDERMA (14:51)
[2023-04-20 15:02] VITALS: BP 120/63; PULSE 56; RESP 16; TEMP 36.6; O2SAT 97
[2023-04-20] MEDS: Heparin Sodium,Porcine/1/2NS 25,000 UNIT/250 ML IV.SOLN 10 UNIT IVCONT (16:35)
--- NOTE | 2023-04-20 16:41 | PM.IMHP ---
History of Present Illness Date of Service: 04/20/23 Chief Complaint: Right leg pain 47 yo female with PMH of RA on methotrexate, lupus, PAD, HARINI, opiate dependence on chronic percocet, Non Hodgkin's lymphoma; DVT on eliquis, here with c/o R hand pain and then since last night R foot pain and she feels her R great toe was purple and painful and the foot is swollen. She reports she is always compliant with her DOAC. She notes her foot is so painful she cannot walk. In ER, Duplex demonstrates occluded SFA. Case discussed with vascular surgery. . . Admit on heparin drip. Will see in a.m. Review of Systems Review of Systems: Denies chest pain Denies shortness of breath Denies nausea vomiting diarrhea Denies fever chills PMFSH Medical History Knee pain, left Depression Hx of peripheral pulmonary artery stenosis History of chemotherapy Cancer of heart Bone cancer Lung cancer Bleeding hemorrhoid Degeneration, intervertebral disc, lumbar Chronic GERD Degeneration of intervertebral disc at C4-C5 level Osteoarthritis of spine with radiculopathy, lumbar region Fibromyalgia Esophageal dysphagia Vitamin D deficiency Systemic lupus erythematosus Seropositive rheumatoid arthritis Rheumatoid arthritis involving multiple sites Gallstones Stress incontinence in female Nocturia Urgency-frequency syndrome De Quervain's disease (tenosynovitis) Depressive disorder Acute arthritis Hodgkin disease Family History Maternal Grandmother Ovarian cancer Surgical History History of angioplasty of vein History of biopsy H/O tubal ligation Hx of endoscopy Hx laparoscopic cholecystectomy Hx of colonoscopy History of esophagogastroduodenoscopy (EGD) History of repair of inguinal hernia History of lymph node dissection of left axilla Social History Household Members: Spouse Housing: Apartment Are you a primary insurance healthcare consultant to a significant other at home: No Do 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 have 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 or other home services: Yes (network control supervisor) Alcohol intake: never Patient Tobacco Use Status: Never used Tobacco Tobacco use type: Cigarette Substance Use Type: Marijuana Advance Directives: No Advance Directives Information Provided: No Advance Directives Date on File: 09/23/20 service: No Current occupational status: disabled 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 Meds Allergies Allergy/AdvReac Type Severity Reaction Status Date / Time almond [ALMONDS] Allergy Severe ANAPHYLAXIS Verified 04/20/23 09:39 adhesive tape [ADHESIVE TAPE] Allergy Intermediate RASH Verified 04/20/23 09:39 morphine [MORPHINE] Allergy Intermediate GI UPSET, Verified 04/20/23 09:39 difficulty breathing tramadol [TRAMADOL] AdvReac Unknown NAUSEA & Verified 04/20/23 09:39 VOMITING Active Medications: Current Medications Acetaminophen (Acetaminophen 325 Mg Tablet) 650 mg PO Q6H PRN PRN Reason: Pain, Mild (Pain Scale 1-3) Alprazolam (Alprazolam 0.5 Mg Tablet) 0.5 mg PO Q6H PRN PRN Reason: anxiety/restlessness Heparin Sodium (Porcine) (Heparin Sodium,Porcine 5,000 Unit/Ml Vial) 3,600 unit 40 unit/kg (3600 unit) IVPUSH PROTOCOL BOLUS PRN; Protocol PRN Reason: 40 unit/kg - Heparin Protocol Heparin Sodium (Porcine) (Heparin Sodium,Porcine 5,000 Unit/Ml Vial) 7,200 unit 80 unit/kg (7200 unit) IVPUSH PROTOCOL BOLUS PRN; Protocol PRN Reason: 80 unit/kg - Heparin Protocol Heparin Sodium/Sodium Chloride (Heparin Sodium,Porcine/1/2ns) 25,000 unit in 250 mls @ 0 mls/hr IVCONT .Q0M [facility]; Protocol Last Admin: 04/20/23 16:35 Dose: 10 units/kg/hr, 9.03 mls/hr Ondansetron HCl (Ondansetron Hcl 4 Mg/2 Ml Vial) 4 mg IVPUSH Q8H PRN PRN Reason: Nausea and Vomiting Oxycodone HCl (Oxycodone Hcl Immed Release 5 Mg Tablet) 10 mg PO Q4H PRN PRN Reason: Pain, Moderate(Pain Scale 4-6) Sodium Chloride (0.9 % Sodium Chloride Flush 3 Ml Syringe) 3 ml IVFLUSH QSHIFT [facility] Home Medications Medication Instructions Recorded Confirmed Last Taken Type albuterol sulfate 90 mcg/actuation 2 puff PO Q4-6H PRN Wheezing 10/02/21 04/20/23 Unknown History aerosol inhaler (ProAir HFA) ferrous sulfate 325 mg (65 mg 1 tab PO QAM 10/02/21 04/20/23 12/16/22 History iron) tablet (FeroSul) gabapentin 400 mg capsule 400 mg PO TID 10/22/21 04/20/23 Unknown History trazodone 150 mg tablet 1 tab PO BEDTIME PRN Sleep 10/22/21 04/20/23 Unknown History docusate sodium 100 mg capsule 100 mg PO BEDTIME PRN Constipation 04/19/22 04/20/23 Unknown History apixaban 5 mg tablet (Eliquis) 5 mg PO BID 09/22/22 04/20/23 12/16/22 History alprazolam 1 mg tablet 1 mg PO BEDTIME PRN Anxiety 12/10/22 04/20/23 Unknown History benztropine 0.5 mg tablet 0.5 mg PO QAM 01/17/23 04/20/23 Unknown History lidocaine 5 % topical patch 1 patch topical DAILY PRN Pain 04/20/23 04/20/23 Unknown History (Lidoderm) methotrexate sodium 2.5 mg tablet 20 mg PO Q2W 04/20/23 04/20/23 Unknown History nystatin 100,000 unit/gram topical 1 appl topical BID PRN Rash 04/20/23 04/20/23 Unknown History powder oxycodone 5 mg capsule 5 mg PO TID PRN pain 04/20/23 04/20/23 Unknown History prednisone 2.5 mg tablet 2.5 mg PO DAILY 04/20/23 04/20/23 Unknown History Physical Exam Vital Signs and Narrative: Vital Signs: Last Vital Signs Temp 97.8 F 04/20/23 15:02 Pulse 56 04/20/23 15:02 Resp 16 04/20/23 15:02 BP 120/63 04/20/23 15:02 Pulse Ox 97 04/20/23 15:02 O2 Del Method Room Air 04/20/23 15:02 BMI result Body Mass Index 32.1 Const: Other: Awake alert uncomfortable Resp: Other: Clear to auscultation bilaterally no rales rhonchi or wheezes Cardio: Other: No S4; positive S1-S2; no S3 murmurs rubs or gallops GI: Other: Soft nontender nondistended normoactive bowel sounds Neuro: Other: Cranial nerves 2-12 grossly intact as tested. Motor is 5/5 all extremities as tested. Sensation is intact; pain with light touch to right lower extremity Extrem: Other: Right lower extremity warm with movement however very sensitive to light touch Results Labs 04/20/23 14:10 04/20/23 10:06 Labs: Laboratory Results - last 24 hr 04/20/23 04/20/23 10:06 14:10 MCV 94.7 95.0 MCH 30.0 30.6 MCHC 31.7 32.2 RDW 13.4 13.4 Plt Count 239 284 MPV 10.4 10.0 Immature Gran % (Auto) Cancelled Neut % (Auto) Cancelled Lymph % (Auto) Cancelled [place] % (Auto) Cancelled Eos % (Auto) Cancelled Baso % (Auto) Cancelled Lymph # (Auto) Cancelled [place] # (Auto) Cancelled Eos # (Auto) Cancelled Baso # (Auto) Cancelled Abs Immat Gran (auto) Cancelled Absolute Neuts (auto) Cancelled Absolute Nucleated RBC 0.000 0.000 Nucleated RBC % (auto) 0.0 0.0 Neutrophils % (Manual) 59 Band Neutrophils % 4 Lymphocytes % (Manual) 26 Monocytes % (Manual) 8 Eosinophils % (Manual) 2 Basophils % (Manual) 1 Abs Neuts (Manual) 3.4 Lymphocytes # (Manual) 1.4 Monocytes # (Manual) 0.4 Eosinophils # (Manual) 0.1 Basophils # (Manual) 0.1 Platelet Estimate NORMAL Plt Morphology Comment NORMAL RBC Morphology NORMAL PT 10.8 L D INR 0.9 aPTT Heparin Protocol 30.4 L Anion Gap 15 Estim Creat Clear Calc 91.4 Estimated GFR > 60 Random Glucose 87 Calcium 9.7 D B-Natriuretic Peptide 37 Imaging Radiologist's Impressions: Impressions Chest X-Ray 04/20/23 10:26 IMPRESSION: No acute pulmonary pathology. Venous Duplex 04/20/23 12:14 IMPRESSION: No DVT demonstrated in the right lower extremity. Duplex Scan Lower Extremity Artery 04/20/23 12:30 IMPRESSION: 1. There is an occluded SFA with monophasic runoff seen below that level. 2. Incidental note is made of a prominent Achilles tendon on the right. Assessment and Plan (1) Superficial femoral artery occlusion: Status: Acute (2) Seropositive rheumatoid arthritis: Status: Acute (3) PAD (peripheral artery disease): Status: Acute (4) Anxiety: Status: Acute Plan 47-year-old female with a history of seropositive rheumatoid arthritis, non-Hodgkin's lymphoma, PAD, HARINI, history DVT on Eliquis, presents with right leg pain that have worsened over last several months. Today the pain became severe to the point where she could not touch it or put pressure on the leg. Presented to the emergency room where an arterial duplex demonstrated an occluded SFA. Patient states compliance with Eliquis 1. SFA occlusion -stop Eliquis -heparin drip as per protocol -vascular surgery consulted... NPO after midnight -oxycodone for pain 2. Seropositive rheumatoid arthritis -continue outpatient therapies including prednisone/gabapentin -pain management as above 3. Anxiety -continue outpatient therapies -add Xanax p.r.n. 4. GERD -continue outpatient PPI -adjust as indicated Full code Heparin Will require at least 2 midnights going forward of inpatient stay for IV heparin and acute intervention to relieve SFA occlusion. This cannot be achieved a lesser acute setting Time Spent With Patient Time: Total time managing care of this patient today ____ minutes. Quality Stroke Does the patient have a stroke diagnosis?: No VTE Prior VTE?: Yes VTE Risk Level:: Medical - moderate - high VTE Device Contraindication: Treatment Not Indicated VTE Drug Contraindication: N/A - Med Ordered
--- NOTE | 2023-04-20 16:48 | PHA.MEDREC ---
Pharmacy Consult ? Medication Reconciliation Pharmacy has completed the medication reconciliation. Patient confirmed medications. Report methotrexate every other Tuesday.. Reported no longer taking sertraline, risperidone, pantoprazole folic acid, famotidine or flonase. Megan Rothman, PharmD
[2023-04-20] MEDS: ALPRAZolam 0.5 MG TABLET PO (17:18)
--- NOTE | 2023-04-20 18:18 | PC.NURSE ---
pt a&o x4, mostly serbian speaking. pt uses commode for BR. 20G IV placed to LAC. 22G IV placed to the left hand. both patent, dry, and dressed. heparin drip running per sep. PTT-HD due at 22:35 pt up in bed eating dinner. pt to be NPO after midnight. report given to JENNIFER Zeng. awaiting transport to [facility] [place].
[2023-04-20 19:52] VITALS: BP 142/88; PULSE 69; RESP 20; TEMP 35.9; O2SAT 99
[2023-04-20] MEDS: Acetaminophen 325 MG TABLET 650 MG PO (20:25)
[2023-04-20] MEDS: Gabapentin 400 MG CAPSULE PO (20:25)
[2023-04-20] MEDS: traZODone HCL 50 MG TABLET 150 MG PO (20:25)
[2023-04-20] MEDS: 0.9 % Sodium Chloride Flush 3 ML SYRINGE IVFLUSH (20:27)
[2023-04-20 22:57] LABS: PTT Heparin Drip 44.3 SEC (53-77.9)
[2023-04-20] MEDS: Heparin Sodium,Porcine 5,000 UNIT/ML VIAL 3600 UNIT IVPUSH (23:23)
[2023-04-21] VITALS: BP 112/55; PULSE 63; RESP 18; TEMP 36.4; O2SAT 93
[2023-04-21 03:17] VITALS: BP 116/67; PULSE 62; RESP 18; TEMP 36.7; O2SAT 93
[2023-04-21] MEDS: oxyCODONE HCl Immed Release 5 MG TABLET 10 MG PO ×3 (03:23→12:33)
[2023-04-21] MEDS: Acetaminophen 325 MG TABLET 650 MG PO ×2 (03:24→12:33)
[2023-04-21 05:59] LABS: MANUAL DIFF FLAG NO
[2023-04-21 06:02] LABS: Basophils Percent Auto 0.2 % (0-2); Eosinophils Absolute Auto 0.1 X10*3/uL (0.0-0.4); Eosinophils Percent Auto 1.4 % (0-4); Hematocrit 36.9 % (37.0-47.0); Hemoglobin 11.9 g/dl (12.0-16.0); Lymphocytes Absolute Auto 2.7 X10*3/uL (1.2-4.9); Lymphocytes Percent Auto 54.6 % (20-40); Mean Corpuscular HGB Conc 32.2 g/dl (31.0-35.0); Mean Corpuscular Hemoglobin 30.4 pg (27.0-33.0); Mean Corpuscular Volume 94.1 fL (80.0-98.0); Mean Platelet Volume 10.1 fL (9.4-12.3); Monocytes Absolute Auto 0.4 X10*3/uL (0.1-1.2); Monocytes Percent Auto 7.8 % (2-11); Neutrophils Absolute Auto 1.8 x10*3/uL (2.0-8.3); Platelet Count 257 X10*3/uL (160-400); Red Blood Count 3.92 X10*6/uL (4.20-5.50); Red Cell Distribution Width 13.4 % (11.0-16.0); White Blood Count 4.9 X10*3/uL (4.8-10.8)
[2023-04-21 06:09] LABS: INTERNATIONAL NORM RATIO 0.9 (0.9-1.1); Prothrombin Time 11.5 SEC (11.1-13.3)
[2023-04-21 06:24] LABS: Alanine Aminotransferase 12 U/L (0-31); Albumin Level 3.7 g/dL (3.5-5.0); Alkaline Phosphatase 64 U/L (39-117); Anion Gap 13 (12-20); Aspartate Amino Transferase 14 U/L (5-31); Bilirubin Total 0.3 mg/dL (0.0-1.0); Blood Urea Nitrogen 12 mg/dL (9-16); Calcium 9.7 mg/dL (8.4-10.2); Carbon Dioxide 24 mmol/L (22-29); Chloride 107 mmol/L (96-108); Creatinine Clr Calc Pharmacy 107.4; Estimated Glomerular Filt Rate > 60; Glucose Fasting 101 mg/dL (60-99); Sodium 140 mmol/L (135-145); Total Protein 8.2 g/dL (6.5-8.0)
[2023-04-21] MEDS: Omeprazole 20 MG CAPSULE.DR PO (06:35)
--- NOTE | 2023-04-21 07:15 | PC.NURSE ---
Patient admitted to S[facility]/Med-tele from ED for RLE dvt. Arrived to S4 ~20:00 04/20, assumed care at this time. Portuguese speaking only. [employer] Worker utilized. A&Ox4, very pleaseant. Patient arrived on heparin gtt; PTTs drawn and gtt titrated per protocol. Most recently, heparin gtt shut off at 06:40 on 04/21 for PTT 105, to be held for 1x before resuming as per protocol. No signs of bleeding. VSS. Bed alarm on and safety measures in place. Breathing even and unlabored without distress on RA. Purewick for voiding, cyu. Pt NPO with meds since midnight as ordered. Pain well managed with tylenol, oxycodone, and gabapentin. Handoff report given 06:45 04/21.
[2023-04-21 07:49] VITALS: BP 121/58; PULSE 56; RESP 16; TEMP 36.1; O2SAT 98
[2023-04-21] MEDS: Gabapentin 400 MG CAPSULE PO (07:49)
[2023-04-21] MEDS: Benztropine Mesylate 0.5 MG TABLET PO (07:50)
[2023-04-21] MEDS: Ascorbic Acid 500 MG TABLET 1000 MG PO (07:50)
[2023-04-21] MEDS: Cholecalciferol (Vitamin D3) 25 MCG TABLET PO (07:50)
[2023-04-21] MEDS: predniSONE 2.5 MG TABLET PO (07:50)
--- NOTE | 2023-04-21 10:11 | P.CONGS_ITS ---
History of Present Illness Consult details Consult date: 04/21/23 Narrative: Very complex 47-year-old female well known to me for peripheral vascular disease. She has a known left iliac occlusion and had right SFA intervention. At in actuality it had to be done through a radial approach. She had been doing well and reports that over the last few months her legs have been hurting her. Upon discussion with her this morning she reports that it is bilateral. At the time of my examination and discussion with the emergency room motor and sensation was intact and the feet were warm. Review of Systems 2 Review of Systems: Yes all other systems are reviewed and are negative Constitutional: Constitutional: Reports no additional constitutional complaints ENT: Reports Normal hearing present Cardiovascular: Cardiovascular: Denies chest pain, Denies chest pain at rest, Denies chest pain with activity and Denies pedal edema Respiratory: Respiratory: Denies cough Gastrointestinal: Gastrointestinal: Denies abdominal pain Musculoskeletal: Musculoskeletal: Denies abnormal gait, Denies muscle cramps and Denies radiating pain into limb Integumentary/Breasts: Skin/Breast: Denies skin ulcer and Denies wounds Neurologic: Reports Normal hearing present and Denies abnormal gait Psychiatric: Psychiatric: Reports no additional psychiatric complaints PMFSH Past Medical History Medical History Knee pain, left Depression Hx of peripheral pulmonary artery stenosis History of chemotherapy Cancer of heart Bone cancer Lung cancer Bleeding hemorrhoid Degeneration, intervertebral disc, lumbar Chronic GERD Degeneration of intervertebral disc at C4-C5 level Osteoarthritis of spine with radiculopathy, lumbar region Fibromyalgia Esophageal dysphagia Vitamin D deficiency Systemic lupus erythematosus Seropositive rheumatoid arthritis Rheumatoid arthritis involving multiple sites Gallstones Stress incontinence in female Nocturia Urgency-frequency syndrome De Quervain's disease (tenosynovitis) Depressive disorder Acute arthritis Hodgkin disease Family History Family History Maternal Grandmother Ovarian cancer Surgical History Surgical History History of angioplasty of vein History of biopsy H/O tubal ligation Hx of endoscopy Hx laparoscopic cholecystectomy Hx of colonoscopy History of esophagogastroduodenoscopy (EGD) History of repair of inguinal hernia History of lymph node dissection of left axilla Social History Social History Household Members: Spouse Housing: Apartment Are you a primary healthcare administrator to a significant other at home: No Do 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 have 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 or other home services: Yes (aerophysicist) Alcohol intake: never Patient Tobacco Use Status: Current everyday Tobacco user Tobacco use type: Cigarette Smoked in Last 30 Days: Yes Patient Interested in Nicotine Replacement: Yes Patient Given Instructions on How to Stop Smoking: Yes Date Education Initiated: 04/20/23 Use of substances other than those prescribed or required for medical reasons: Yes Substance Use Type: Marijuana Last Used Substance Other:: 0804/20 Currently Displaying Signs/Symptoms of Drug Intoxication Withdrawal: No Have you been hit, kicked, punched, or otherwise hurt by someone within the past year? 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 Meds Allergies Allergy/AdvReac Type Severity Reaction Status Date / Time almond [ALMONDS] Allergy Severe ANAPHYLAXIS Verified 04/20/23 09:39 adhesive tape [ADHESIVE TAPE] Allergy Intermediate RASH Verified 04/20/23 09:39 morphine [MORPHINE] Allergy Intermediate GI UPSET, Verified 04/20/23 09:39 difficulty breathing tramadol [TRAMADOL] AdvReac Unknown NAUSEA & Verified 04/20/23 09:39 VOMITING Active Medications: Current Medications Acetaminophen (Acetaminophen 325 Mg Tablet) 650 mg PO Q6H PRN PRN Reason: Pain, Mild (Pain Scale 1-3) Last Admin: 04/21/23 03:24 Dose: 650 mg Albuterol Sulfate (Albuterol Sulfate 90 Mcg 8 Gm Inhaler) 2 puff INHALE Q4H PRN PRN Reason: Wheezing Alprazolam (Alprazolam 0.5 Mg Tablet) 0.5 mg PO Q6H PRN PRN Reason: anxiety/restlessness Last Admin: 04/20/23 17:18 Dose: 0.5 mg Alprazolam (Alprazolam 0.5 Mg Tablet) 1 mg PO BEDTIME PRN PRN Reason: Anxiety Ascorbic Acid (Ascorbic Acid 500 Mg Tablet) 1,000 mg PO DAILY [facility] Last Admin: 04/21/23 07:50 Dose: 1,000 mg Benztropine Mesylate (Benztropine Mesylate 0.5 Mg Tablet) 0.5 mg PO DAILY [facility] Last Admin: 04/21/23 07:50 Dose: 0.5 mg Gabapentin (Gabapentin 400 Mg Capsule) 400 mg PO TID [facility] Last Admin: 04/21/23 07:49 Dose: 400 mg Heparin Sodium (Porcine) (Heparin Sodium,Porcine 5,000 Unit/Ml Vial) 3,600 unit 40 unit/kg (3600 unit) IVPUSH PROTOCOL BOLUS PRN; Protocol PRN Reason: 40 unit/kg - Heparin Protocol Last Admin: 04/20/23 23:23 Dose: 3,600 unit Heparin Sodium (Porcine) (Heparin Sodium,Porcine 5,000 Unit/Ml Vial) 7,200 unit 80 unit/kg (7200 unit) IVPUSH PROTOCOL BOLUS PRN; Protocol PRN Reason: 80 unit/kg - Heparin Protocol Heparin Sodium/Sodium Chloride (Heparin Sodium,Porcine/1/2ns) 25,000 unit in 250 mls @ 0 mls/hr IVCONT .Q0M [facility]; Protocol Last Titration: 04/21/23 07:43 Dose: 10.07 units/kg/hr, 9.09 mls/hr Omeprazole (Omeprazole 20 Mg Capsule.Dr) 20 mg PO DAILY@0630 [facility] Last Admin: 04/21/23 06:35 Dose: 20 mg Ondansetron HCl (Ondansetron Hcl 4 Mg/2 Ml Vial) 4 mg IVPUSH Q8H PRN PRN Reason: Nausea and Vomiting Oxycodone HCl (Oxycodone Hcl Immed Release 5 Mg Tablet) 10 mg PO Q4H PRN PRN Reason: Pain, Moderate(Pain Scale 4-6) Last Admin: 04/21/23 07:51 Dose: 10 mg Prednisone (Prednisone 2.5 Mg Tablet) 2.5 mg PO DAILY [facility] Last Admin: 04/21/23 07:50 Dose: 2.5 mg Sodium Chloride (0.9 % Sodium Chloride Flush 3 Ml Syringe) 3 ml IVFLUSH QSHIFT [facility] Last Admin: 04/20/23 20:27 Dose: 3 ml Tiotropium Meridian (Tiotropium Meridian 2.5 Mcg Inhaler) 2 puff INHALE RDAILY [facility] Trazodone HCl (Trazodone Hcl 50 Mg Tablet) 150 mg PO BEDTIME PRN PRN Reason: Sleep Last Admin: 04/20/23 20:25 Dose: 150 mg Vitamin D (Cholecalciferol (Vitamin D3) 25 Mcg Tablet) 25 mcg PO DAILY [facility] Last Admin: 04/21/23 07:50 Dose: 25 mcg Home Medications Medication Instructions Recorded Confirmed Last Taken Type albuterol sulfate 90 mcg/actuation 2 puff PO Q4-6H PRN Wheezing 10/02/21 04/20/23 Unknown History aerosol inhaler (ProAir HFA) ferrous sulfate 325 mg (65 mg 1 tab PO QAM 10/02/21 04/20/23 12/16/22 History iron) tablet (FeroSul) gabapentin 400 mg capsule 400 mg PO TID 10/22/21 04/20/23 Unknown History trazodone 150 mg tablet 1 tab PO BEDTIME PRN Sleep 10/22/21 04/20/23 Unknown History docusate sodium 100 mg capsule 100 mg PO BEDTIME PRN Constipation 04/19/22 04/20/23 Unknown History apixaban 5 mg tablet (Eliquis) 5 mg PO BID 09/22/22 04/20/23 12/16/22 History alprazolam 1 mg tablet 1 mg PO BEDTIME PRN Anxiety 12/10/22 04/20/23 Unknown History benztropine 0.5 mg tablet 0.5 mg PO QAM 01/17/23 04/20/23 Unknown History lidocaine 5 % topical patch 1 patch topical DAILY PRN Pain 04/20/23 04/20/23 Unknown History (Lidoderm) methotrexate sodium 2.5 mg tablet 20 mg PO Q2W 04/20/23 04/20/23 Unknown History nystatin 100,000 unit/gram topical 1 appl topical BID PRN Rash 04/20/23 04/20/23 Unknown History powder oxycodone 5 mg capsule 5 mg PO TID PRN pain 04/20/23 04/20/23 Unknown History prednisone 2.5 mg tablet 2.5 mg PO DAILY 04/20/23 04/20/23 Unknown History Physical Exam 2 Vital Signs: Vital Signs: Last Vital Signs Temp 96.9 F 04/21/23 07:49 Pulse 56 04/21/23 07:49 Resp 16 04/21/23 07:49 BP 121/58 L 04/21/23 07:49 Pulse Ox 98 04/21/23 07:49 O2 Del Method Room Air 04/21/23 07:49 BMI result Body Mass Index 32.1 Const: General: cooperative, healthy appearing and comfortable O rientation/consciousness: oriented to person, oriented to place and oriented to time HEENT: Head: Yes normal to inspection Neck: Neck: Yes normal visual inspection Carotids: no bruits Chest: Chest palpation & inspection: normal inspection of the chest Resp: Effort & Inspection: normal respiratory effort and able to speak in complete sentences Auscultation: clear to auscultation bilaterally, no crackles, no rales, no rhonchi and no wheezes Cardio: Other: Bilateral DP signals Rate: regular rate Rhythm: regular rhythm Heart sounds: S1 normal heart sound present and S2 normal heart sound present Bruits: no carotid bruits Peripheral pulses: Peripheral pulses 2+ throughout GI: Inspection: Yes normal to inspection Skin: Wounds: no wounds Hair: normal Neuro: General: oriented to person, oriented to place and oriented to time Cranial nerves: Yes CN's II-XII intact bilaterally and Yes Normal hearing present Cognition (Neuro): normal cognition Motor exam (neuro): 5/5 motor strength present throughout Extrem: Other: venous exam: No significant superficial varicosities or spider telangiectasias, minimal edema General: No clubbing, No cyanosis and No edema Psych: Appearance: grossly normal Mental Status: mental status grossly normal Speech and movement: Normal speech and movement present Results Labs 04/21/23 05:54 04/21/23 05:54 Labs: Abnormal lab results 04/20/23 04/20/23 04/20/23 Range/Units 10:06 14:10 22:39 RBC 4.16 L 4.02 L (4.20-5.50) X10*6/uL Hgb (12.0-16.0) g/dl Hct (37.0-47.0) % Neut % (Auto) (45-73) % Lymph % (Auto) (20-40) % Absolute Neuts (auto) (2.0-8.3) x10*3/uL PT 10.8 L D (11.1-13.3) SEC aPTT Heparin Protocol 30.4 L 44.3 L D (53-77.9) SEC Carbon Dioxide 20 L (22-29) mmol/L Fasting Glucose (60-99) mg/dL Total Protein (6.5-8.0) g/dL 04/21/23 Range/Units 05:54 RBC 3.92 L (4.20-5.50) X10*6/uL Hgb 11.9 L (12.0-16.0) g/dl Hct 36.9 L (37.0-47.0) % Neut % (Auto) 36.0 L (45-73) % Lymph % (Auto) 54.6 H (20-40) % Absolute Neuts (auto) 1.8 L (2.0-8.3) x10*3/uL PT (11.1-13.3) SEC aPTT Heparin Protocol 105.0 H D (53-77.9) SEC Carbon Dioxide (22-29) mmol/L Fasting Glucose 101 H (60-99) mg/dL Total Protein 8.2 H (6.5-8.0) g/dL Short CBC 04/20/23 04/20/23 04/21/23 Range/Units 10:06 14:10 05:54 WBC 5.4 5.3 4.9 (4.8-10.8) X10*3/uL Hgb 12.5 12.3 11.9 L (12.0-16.0) g/dl Hct 39.4 38.2 36.9 L (37.0-47.0) % Plt Count 239 284 257 (160-400) X10*3/uL BMP 04/20/23 04/21/23 10:06 05:54 Sodium 138 140 Potassium 4.7 D 4.0 Chloride 108 107 Carbon Dioxide 20 L 24 BUN 12 12 Creatinine 0.72 0.74 Calcium 9.7 D 9.7 Liver Function 04/21/23 Range/Units 05:54 Total Bilirubin 0.3 (0.0-1.0) mg/dL AST 14 (5-31) U/L ALT 12 (0-31) U/L Alkaline Phosphatase 64 (39-117) U/L Albumin 3.7 (3.5-5.0) g/dL All other labs normal. Imaging Additional studies: 04/20/2023 arterial ultrasound of right lower extremity right mid SFA occlusion monophasic flow below that. Written report and images were reviewed. Assessment and Plan Time Spent With Patient Time: Total time managing care of this patient today ____ minutes. Procedures Date of Service Date of Service: 04/21/23
[2023-04-21 10:20] VITALS: PULSE 50; RESP 16; O2SAT 98
[2023-04-21] MEDS: LORazepam 2 MG/ML VIAL 1 MG IVPUSH (11:35)
[2023-04-21] MEDS: Nicotine 21 MG PATCH.TD24 TRANSDERMA (11:35)
[2023-04-21 12:00] VITALS: BP 138/61; PULSE 74; RESP 20; TEMP 36.6; O2SAT 97
[2023-04-21 13:57] LABS: PTT Heparin Drip 55.3 SEC (53-77.9)
--- NOTE | 2023-04-21 14:54 | PM.DS ---
DS: Providers Provider Date of Service: 04/21/23 Date of admission: 04/20/23 16:35 Date of discharge: 04/21/23 Primary care physician: Mackenzie Estrada MD Consults: 04/20/23 16:38 Consult to Vascular Surgery Stat Consulting Provider: [facility] [place] Vascular Services Reason for consultation: Arterial Thrombus Has provider been notified: Yes DS: Diagnosis Discharge Diagnosis (1) Superficial femoral artery occlusion: Status: Acute (2) Seropositive rheumatoid arthritis: Status: Acute (3) PAD (peripheral artery disease): Status: Acute (4) Anxiety: Status: Acute DS: Summary Hospital Course Hospital Course: 47 yo female with PMH of RA on methotrexate, lupus, PAD, HARINI, opiate dependence on chronic percocet, Non Hodgkin's lymphoma; DVT on eliquis, here with c/o R hand pain and then since last night R foot pain and she feels her R great toe was purple and painful and the foot is swollen. She reports she is always compliant with her DOAC. She notes her foot is so painful she cannot walk. In ER, Duplex demonstrates occluded SFA. Case discussed with vascular surgery. . . Admit on heparin drip. Will see in a.m. Hospital Course Admitted to telemetry on heparin drip. Seen in consultation by vascular surgery who felt this was not an acute occlusion rather chronic. CTA of aorta with runoff done and read by vascular. No acute interventions indicated. At this point in time patient is anxious to go home and is medically acceptable for same. She will resume her Eliquis in all other home meds and given a short script for oxycodone for pain. She can follow-up with PCP and load manager as scheduled Time Spent with Patient Time attestation: Total time managing care of this patient today ____ minutes. Discharge coordination time: Greater than 30 minutes Quality: Safe Use of Opioids Does Pt have an Active Cancer Diagnosis on the Problem List?: No Quality: Stroke Does the patient have a stroke diagnosis?: No Physical Exam Vital Signs: Vital Signs: Last Vital Signs Temp 97.8 F 04/21/23 12:00 Pulse 74 04/21/23 12:00 Resp 20 04/21/23 12:00 BP 138/61 04/21/23 12:00 Pulse Ox 97 04/21/23 12:00 O2 Del Method Room Air 04/21/23 12:00 BMI result Body Mass Index 32.1 Const: Other: Awake alert uncomfortable Resp: Other: Clear to auscultation bilaterally no rales rhonchi or wheezes Cardio: Other: No S4; positive S1-S2; no S3 murmurs rubs or gallops GI: Other: Soft nontender nondistended normoactive bowel sounds Neuro: Other: Cranial nerves 2-12 grossly intact as tested. Motor is 5/5 all extremities as tested. Sensation is intact; pain with light touch to right lower extremity Extrem: Other: Right lower extremity warm with movement however very sensitive to light touch DS: Data Data Completed and Pending Labs on day of discharge: Laboratory Results - last 24 hr 04/20/23 04/21/23 04/21/23 22:39 05:54 05:54 WBC 4.9 RBC 3.92 L Hgb 11.9 L Hct 36.9 L MCV 94.1 MCH 30.4 MCHC 32.2 RDW 13.4 Plt Count 257 MPV 10.1 Immature Gran % (Auto) 0.0 Neut % (Auto) 36.0 L Lymph % (Auto) 54.6 H [place] % (Auto) 7.8 Eos % (Auto) 1.4 Baso % (Auto) 0.2 Lymph # (Auto) 2.7 [place] # (Auto) 0.4 Eos # (Auto) 0.1 Baso # (Auto) 0.0 Abs Immat Gran (auto) 0.00 Absolute Neuts (auto) 1.8 L Absolute Nucleated RBC 0.000 Nucleated RBC % (auto) 0.0 PT Cancelled 11.5 INR Cancelled aPTT Heparin Protocol 44.3 L D Sodium Potassium Chloride Carbon Dioxide Anion Gap BUN Creatinine Estim Creat Clear Calc Estimated GFR Fasting Glucose Calcium Total Bilirubin AST ALT Alkaline Phosphatase Total Protein Albumin 04/21/23 04/21/23 05:54 13:44 WBC RBC Hgb Hct MCV MCH MCHC RDW Plt Count MPV Immature Gran % (Auto) Neut % (Auto) Lymph % (Auto) [place] % (Auto) Eos % (Auto) Baso % (Auto) Lymph # (Auto) [place] # (Auto) Eos # (Auto) Baso # (Auto) Abs Immat Gran (auto) Absolute Neuts (auto) Absolute Nucleated RBC Nucleated RBC % (auto) PT INR 0.9 aPTT Heparin Protocol 105.0 H D 55.3 D Sodium 140 Potassium 4.0 Chloride 107 Carbon Dioxide 24 Anion Gap 13 BUN 12 Creatinine 0.74 Estim Creat Clear Calc 107.4 Estimated GFR > 60 Fasting Glucose 101 H Calcium 9.7 Total Bilirubin 0.3 AST 14 ALT 12 Alkaline Phosphatase 64 Total Protein 8.2 H Albumin 3.7 Discharge Plan Discharge Anticipated Discharge Date/Time: 04/21/23 14:41 Patient Disposition: Home, Self-Care Discharge Diagnosis: SFA occlusion Referrals: Mackenzie Estrada MD [Primary Care Provider] - 1 Week Discharge Medications: New nicotine 21 mg/24 hr Patch 24 Hour 21 mg transdermal DAILY Qty: 30 0RF oxycodone 5 mg Tablet 10 mg PO Q4H PRN (Reason: Pain, Moderate(Pain Scale 4-6)) Qty: 30 0RF Rx Instructions: Partial Fill upon patient request. Continued (DME) adhesive bandage 1 bandage See Rx Instructions .ROUTE .MEDSUPPLY Qty: 20 5RF Rx Instructions: Use after Methotrexate injection Incruse Ellipta 62.5 mcg/actuation blister with device 1 inh PO DAILY Qty: 30 6RF ascorbate calcium (vitamin C) 500 mg tablet 1 g PO DAILY 90 Days Qty: 180 2RF vitamin A palmitate 3,000 mcg (10,000 unit) tablet 10,000 unit PO DAILY Qty: 90 1RF cholecalciferol (vitamin D3) [Vitamin D3] 25 mcg (1,000 unit) capsule 25 mcg PO QAM Qty: 90 2RF gabapentin 400 mg capsule 400 mg PO TID trazodone 150 mg tablet 1 tab PO BEDTIME PRN (Reason: Sleep) ferrous sulfate [FeroSul] 325 mg (65 mg iron) tablet 1 tab PO QAM albuterol sulfate [ProAir HFA] 90 mcg/actuation HFA aerosol inhaler 2 puff PO Q4-6H PRN (Reason: Wheezing) methotrexate sodium 2.5 mg tablet 20 mg PO Q2W Rx Instructions: every other tuesday prednisone 2.5 mg tablet 2.5 mg PO DAILY nystatin 100,000 unit/gram powder 1 appl topical BID PRN (Reason: Rash) lidocaine [Lidoderm] 5 % adhesive patch,medicated 1 patch topical DAILY PRN (Reason: Pain) Rx Instructions: leave on most painful area for up to 12 hrs docusate sodium 100 mg capsule 100 mg PO BEDTIME PRN (Reason: Constipation) alprazolam 1 mg tablet 1 mg PO BEDTIME PRN (Reason: Anxiety) Eliquis 5 mg tablet 5 mg PO BID acetaminophen 500 mg tablet 500 - 1,000 mg PO Q8-10H PRN (Reason: pain) Qty: 100 4RF benztropine 0.5 mg tablet 0.5 mg PO QAM pantoprazole 40 mg tablet,delayed release (DR/EC) 40 mg PO DAILY Qty: 90 1RF Discontinued oxycodone 5 mg capsule 5 mg PO TID PRN (Reason: pain) Rx Instructions: Partial Fill upon patient request. Discharge Orders: Discharge Order (Routine); Ordered 04/21/23 Ordered By: Lorenzo Rosa Diet: Advance to usual diet Activity on Discharge: As tolerated Stand Alone Forms: Patient Portal Discharge page Care Plan Goals: Continue all your medicines as taken prior to the hospital including her Eliquis. Health Concerns: Use oxycodone as needed for pain Plan of Treatment: Follow-up with PCP and load manager as scheduled Assessment: See discharge summary
--- NOTE | 2023-04-21 15:23 | MHC.CM.PN ---
Pt has been medically cleared for d/c to home with no services. IMM 04/21/23, Son Aakash Ordaz is EXTERIOR DOOR INSTALLER and does all care, [phone]. Pt lives with her boyfriend in an apt. She has a wheeled walker.
== END 2023-04-21 15:37 | disposition home or self-care (01) | DRG 197 ==
LOC: HO.ED 13:54 → HO.EDOVER 16:47 → HO.IMC 17:53
PROVIDERS: Emergency Medicine; Student in an Organized Health Care Education/Training Program; Admitting Provider Hospitalist; Emergency Provider Emergency Medicine Emergency Medical Services; PCP General Practice; Visit Provider Hospitalist
DX: I77.1 Stricture of artery (principal); M32.9 Systemic lupus erythematosus, unspecified; F11.20 Opioid dependence, uncomplicated; M79.7 Fibromyalgia; M05.9 Rheumatoid arthritis with rheumatoid factor, unspecified; G47.33 Obstructive sleep apnea (adult) (pediatric); K21.9 Gastro-esophageal reflux disease without esophagitis; F41.9 Anxiety disorder, unspecified; F17.210 Nicotine dependence, cigarettes, uncomplicated; Z71.6 Tobacco abuse counseling; Z86.718 Personal history of other venous thrombosis and embolism; Z79.01 Long term (current) use of anticoagulants; Z79.52 Long term (current) use of systemic steroids; Z79.631 Long term (current) use of antimetabolite agent; Z79.899 Other long term (current) drug therapy
CPT/HCPCS: 36415; 71046; 75635; 80048; 80053; 83880; 84484; 85007; 85025; 85027; 85610; 85730; 93005; 93926; 93971; 99222; 99285; J1643; J2060

== ENCOUNTER → 2023-04-20 16:35 | Outpatient (BNV) | payer MEDICAID, SELFPAY | PROVIDERS: Admitting Provider Hospitalist; Emergency Provider Emergency Medicine Emergency Medical Services; PCP General Practice; Visit Provider Surgery Vascular Surgery | DX: I73.89 Other specified peripheral vascular diseases (principal) | CPT/HCPCS: 99222 ==

== ENCOUNTER → 2023-04-20 16:35 | Outpatient (BNV) | payer MEDICAID, SELFPAY | PROVIDERS: Admitting Provider Hospitalist; Emergency Provider Emergency Medicine; PCP General Practice; Visit Provider Hospitalist | DX: I70.209 Unspecified atherosclerosis of native arteries of extremities, unspecified extremity (principal); M05.79 Rheumatoid arthritis with rheumatoid factor of multiple sites without organ or systems involvement; F41.9 Anxiety disorder, unspecified | CPT/HCPCS: 99223; 99239 ==

== ENCOUNTER 2023-05-09 09:31 | Emergency (ER) | payer MEDICAID, SELFPAY ==
[2023-05-09 09:48] VITALS: BP 117/75; PULSE 75; RESP 16; TEMP 35.8; O2SAT 99; BMI 28.2
--- NOTE | 2023-05-09 11:33 | ED.EXTPRO ---
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 Pt has had no recent trauma or injury to her right leg. Reports pain worsens with ambulation. She has been compliant with eliquis without any missed doses. No chest pain, shortness of breath, dizziness, headaches. No other complaints or concerns at this time. MD Complaint: extremity pain Pain Consistency: constant Location: lower extremity Quality: stabbing and aching Radiation: proximal Relieving factors: nothing Exacerbating factors: weight bearing, walking and palpation Associated symptoms: denies other symptoms Context: history of DVT Related Data Home Medications Medication Instructions Recorded Confirmed albuterol sulfate 90 mcg/actuation 2 puff PO Q4-6H PRN Wheezing 10/02/21 05/16/23 aerosol inhaler (ProAir HFA) ferrous sulfate 325 mg (65 mg 1 tab PO QAM 10/02/21 05/16/23 iron) tablet (FeroSul) gabapentin 400 mg capsule 400 mg PO TID 10/22/21 05/16/23 trazodone 150 mg tablet 1 tab PO BEDTIME PRN Sleep 10/22/21 05/16/23 docusate sodium 100 mg capsule 100 mg PO BEDTIME PRN Constipation 04/19/22 05/16/23 apixaban 5 mg tablet (Eliquis) 5 mg PO BID 09/22/22 05/16/23 alprazolam 1 mg tablet 1 mg PO BEDTIME PRN Anxiety 12/10/22 05/16/23 benztropine 0.5 mg tablet 0.5 mg PO QAM 01/17/23 05/16/23 lidocaine 5 % topical patch 1 patch topical DAILY PRN Pain 04/20/23 05/16/23 (Lidoderm) nystatin 100,000 unit/gram topical 1 appl topical BID PRN Rash 09/20/23 10/16/23 powder cilostazol 50 mg tablet 50 mg PO 05/16/23 05/16/23 famotidine 20 mg tablet 20 mg PO BID 05/16/23 05/16/23 oxycodone-acetaminophen 5 mg-325 1 tab PO Q8H PRN severe pain 05/16/23 05/16/23 mg tablet risperidone 1 mg tablet mg PO 05/16/23 05/16/23 Previous Rx's Medication Instructions Recorded adhesive bandage 1 #20 ea 05/21/20 acetaminophen 500 mg tablet 500 - 1,000 mg (1 - 2 x 500 mg) PO 09/22/22 Q8-10H PRN pain #100 tabs umeclidinium 62.5 mcg/actuation 1 inh PO DAILY #30 ea 11/29/22 blister powder for inhalation (Incruse Ellipta) ascorbate calcium (vitamin C) 500 1 g (2 x 500 mg) PO DAILY 90 days 12/21/22 mg tablet #180 tabs vitamin A palmitate 3,000 mcg 10,000 unit PO DAILY #90 tabs 12/21/22 (10,000 unit) tablet pantoprazole 40 mg tablet,delayed 40 mg PO DAILY #90 tabs 01/17/23 release cholecalciferol (vitamin D3) 25 25 mcg PO QAM #90 caps 02/28/23 mcg (1,000 unit) capsule (Vitamin D3) nicotine 21 mg/24 hr daily 21 mg transdermal DAILY #30 ea 04/21/23 transdermal patch oxycodone 5 mg tablet 10 mg (2 x 5 mg) PO Q4H PRN Pain, 04/21/23 Moderate(Pain Scale 4-6) #30 tabs methotrexate sodium 2.5 mg tablet 20 mg (8 x 2.5 mg) PO QWEEK #96 05/16/23 tabs prednisone 2.5 mg tablet See Rx Instructions .Route 05/16/23 .COMPLEX #90 tabs Allergies Allergy/AdvReac Type Severity Reaction Status Date / Time almond [ALMONDS] Allergy Severe ANAPHYLAXIS Verified 05/16/23 10:04 adhesive tape [ADHESIVE TAPE] Allergy Intermediate RASH Verified 05/16/23 10:04 morphine [MORPHINE] Allergy Intermediate GI UPSET, Verified 05/16/23 10:04 difficulty breathing tramadol [TRAMADOL] AdvReac Unknown NAUSEA & Verified 05/16/23 10:04 VOMITING Review of Systems Review of Systems: Yes all other systems are reviewed and are negative Constitutional: Constitutional: Reports as per HPI [facility] Past Medical History Medical History Seropositive rheumatoid arthritis Anxiety Achilles tendinitis Superficial femoral artery occlusion PAD (peripheral artery disease) Knee pain, left Depression Hx of peripheral pulmonary artery stenosis History of chemotherapy Cancer of heart Bone cancer Lung cancer Bleeding hemorrhoid Degeneration, intervertebral disc, lumbar Chronic GERD Degeneration of intervertebral disc at C4-C5 level Osteoarthritis of spine with radiculopathy, lumbar region Fibromyalgia Esophageal dysphagia Vitamin D deficiency Systemic lupus erythematosus Seropositive rheumatoid arthritis Rheumatoid arthritis involving multiple sites Gallstones Stress incontinence in female Nocturia Urgency-frequency syndrome De Quervain's disease (tenosynovitis) Depressive disorder Acute arthritis Hodgkin disease Surgical History History of angioplasty of vein History of biopsy H/O tubal ligation Hx of endoscopy Hx laparoscopic cholecystectomy Hx of colonoscopy History of esophagogastroduodenoscopy (EGD) History of repair of inguinal hernia History of lymph node dissection of left axilla Family History Family History Maternal Grandmother Ovarian cancer Social History Social History Household Members: Spouse Housing: Apartment Are you a primary acute care assistant to a significant other at home: No Do 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 have 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 or other home services: Yes (racing mechanic) Alcohol intake: never Patient Tobacco Use Status: Current everyday Tobacco user Tobacco use type: Cigarette Substance Use Type: Marijuana Advance Directives Date on File: 09/23/20 service: No Current occupational status: disabled 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 Physical Exam Vital Signs: Vital Signs: Last Vital Signs Temp 96.9 F 05/09/23 12:10 Pulse 78 05/09/23 12:10 Resp 16 05/09/23 12:10 BP 117/64 05/09/23 12:10 Pulse Ox 98 05/09/23 12:10 O2 Del Method Room Air 05/09/23 12:10 BMI result Body Mass Index 28.2 Const: General: cooperative, comfortable and no acute distress Orientation/consciousness: patient oriented x3 Limitations: no limitations HEENT: Head: Yes normal to inspection, Yes normocephalic and Yes atraumatic Ears: hearing grossly normal bilaterally General nose exam: Normal external nose present Face and sinus: Yes normal facial exam Mouth: Normal oral and palatal mucosa present, oropharynx normal and moist mucous membranes Throat: Yes posterior oropharynx normal Eyes: General: appearance normal, both eyes and all related structures Eyelids: Yes eyelids normal Conjunctivae: conjunctivae normal Sclerae: sclerae normal Pupils: Equal, round and reactive pupils present EOM: EOMs intact bilaterally Neck: Neck: Yes normal visual inspection, Yes full ROM and Yes no lymphadenopathy Lymphatic: no lymphadenopathy noted Chest: Chest palpation & inspection: normal inspection of the chest Resp: Effort & Inspection: normal respiratory effort and able to speak in complete sentences Auscultation: clear to auscultation bilaterally, no crackles, no rales, no rhonchi and no wheezes Cardio: Rate: regular rate Rhythm: regular rhythm Heart sounds: S1 normal heart sound present and S2 normal heart sound present GI: Inspection: Yes normal to inspection Skin: General skin exam: no rashes or lesions noted Trauma: no lacerations or abrasions Wounds: no wounds Neuro: General: patient oriented x3 and moves all extremities Cranial nerves: Yes Equal, round and reactive pupils present Extrem: Other: Entirety of right leg i well perfused. TTP over right ankle and right upper inner thigh. Good range of motion at the right knee. DPPT pulses 2+. General: Yes normal to inspection Right upper extremity: normal to inspection Left upper extremity: normal to inspection Right lower extremity: normal to inspection Left lower extremity: normal to inspection Medications Administered Discontinued Medications Generic Name Dose Route Start Last Admin Trade Name Freq PRN Reason Stop Dose Admin Hydrocodone Bitart/Acetaminophen 1 tab 05/09/23 13:58 05/09/23 14:45 Hydrocodone Bit/Acetam 5/325 Tablet PO 05/09/23 13:59 1 tab ONCE ONE Administration Medical Decision Making Medical Decision Making MDM Narrative: This is a 47 yo [place]-speaking female with PMH of RA on methotrexate, lupus, PAD, HARINI, opiate dependence on chronic percocet, DVT compliant on eliquis, and non hodgkin's lymphoma, presenting to the ER with complaints of atraumatic acute on chronic right leg pain. Pt was seen and evaluated on 04/21, where she had a CTA aorta with runoff that showed chronic occlusion of the left common iliac artery, as well as new occlusion of the proximal right superficial femoral artery with occlusion of the distal right superficial femoral artery stent. I discussed this with Dr. Hughes, her vascular surgeon, who recommends venous US and that an arterial occlusion is unlikely and she should f/u outpatient. Venous US revealing no new DVT found. Her vitals are stable, pt has no chest pain or shortness of breath. Discussed findings with patient and urged pt to follow up with Dr. Hughes outpatient. Pt understands and agrees with plan. Stable for D/C. Differential Diagnosis Differential Diagnoses: The differential diagnosis associated with the presentation includes DVT, muscle strain, spasm, arterial occlusion Admission/Observation Consideration of admission/observation: Escalation of care including admission/observation considered Patient would have been admitted to the hospital had her work up had any findings where hospital admission was appropriate and her clinical presentation warranted hospital admission. Consult Healthcare Provider Management of the patient was discussed with: Help Desk Intern Dr. Hughes - vascular surgeon Lab Data MDM Lab Attestation statement: I reviewed the patient's lab results. No leukocytosis, H&H around her baseline. Chemistry nondiagnostic. 05/09/23 12:14 05/09/23 12:14 Labs: Lab Results 05/09/23 Range/Units 12:14 WBC 6.2 (4.8-10.8) X10*3/uL RBC 3.70 L (4.20-5.50) X10*6/uL Hgb 11.5 L (12.0-16.0) g/dl Hct 35.7 L (37.0-47.0) % MCV 96.5 (80.0-98.0) fL MCH 31.1 (27.0-33.0) pg MCHC 32.2 (31.0-35.0) g/dl RDW 13.8 (11.0-16.0) % Plt Count 295 (160-400) X10*3/uL MPV 10.0 (9.4-12.3) fL Immature Gran % (Auto) 0.2 (0.0-0.4) % Neut % (Auto) 61.7 (45-73) % Lymph % (Auto) 31.7 (20-40) % [place] % (Auto) 5.3 (2-11) % Eos % (Auto) 0.6 (0-4) % Baso % (Auto) 0.5 (0-2) % Lymph # (Auto) 2.0 (1.2-4.9) X10*3/uL [place] # (Auto) 0.3 (0.1-1.2) X10*3/uL Eos # (Auto) 0.0 (0.0-0.4) X10*3/uL Baso # (Auto) 0.0 (0.0-0.2) X10*3/uL Abs Immat Gran (auto) 0.01 (0.00-0.03) X10*3/uL Absolute Neuts (auto) 3.8 (2.0-8.3) x10*3/uL Absolute Nucleated RBC 0.000 (0.0-0.012) X10*3/uL Nucleated RBC % (auto) 0.0 (0.0-0.2) /100WBC PT 13.4 H (11.1-13.3) SEC INR 1.1 (0.9-1.1) APTT 31.9 (26.0-36.4) SEC Sodium 140 (135-145) mmol/L Potassium 3.9 (3.3-5.1) mmol/L Chloride 105 (96-108) mmol/L Carbon Dioxide 23 (22-29) mmol/L Anion Gap 16 (12-20) BUN 10 (9-16) mg/dL Creatinine 0.72 (0.5-1.4) mg/dL Estim Creat Clear Calc 107.3 Estimated GFR > 60 Random Glucose 106 (60-115) mg/dL Calcium 9.8 (8.4-10.2) mg/dL Total Bilirubin 0.3 (0.0-1.0) mg/dL Direct Bilirubin 0.1 (0.0-0.5) mg/dL AST 13 (5-31) U/L ALT 7 (0-31) U/L Alkaline Phosphatase 61 (39-117) U/L Total Protein 8.6 H (6.5-8.0) g/dL Albumin 4.0 (3.5-5.0) g/dL Radiology Impression Discussion of test interpretation with radiology: I have reviewed the radiologist's reading. Radiologist Impression: EXAMINATION: US VENOUS ULTRASOUND WITH DOPPLER LOWER EXTREMITY, RIGHT CLINICAL INFORMATION: Worsening leg pain. History of deep vein thrombosis. COMPARISON: Prior ultrasound exams from 04/20/2023. CT angiography runoff exam from 04/21/2023. TECHNIQUE: Ultrasound of the deep veins is performed from the hip to the calf with compression sonography and color and pulse Doppler assessment. Spectral analysis with color-flow imaging is performed. FINDINGS: The common femoral vein is compressible and exhibits a normal phasic waveform; this suggests that the iliac veins are widely patent above. Again noted is an occluded right SFA. Within the proximal thigh, the visualized profunda femoris vein is normal. The examined greater saphenous vein and saphenofemoral junction are normal. Superficial femoral vein is patent in the proximal, mid and distal thigh. Popliteal vein is normal to the level of the trifurcation. On compression fortune scale and color Doppler images, the visualized posterior tibial and peroneal veins are normal. No evidence of Dhillon's cyst. US/US venous duplex LE RT IMPRESSION: No evidence of deep vein thrombosis in the right lower extremity. Chronic Conditions Patient?s care impacted by: Other RA on methotrexate, lupus, PAD, HARINI, opiate dependence on chronic percocet, DVT on eliquis, and non hodgkin's lymphoma Discharge Plan Discharge Clinical Impression: Chronic pain of right lower extremity Patient Disposition: Home, Self-Care Instructions: Leg Pain (ED) Additional Instructions: Your ultrasound did not reveal any evidence of DVT in the right leg. Please follow-up with your vascular surgeon, Dr. Hughes. Call tomorrow to make an appointment. Continue taking your prescribed narcotic medication and Tylenol. If any new or worsening symptoms occur including but not limited to worsening pain, fevers or chills, chest pain or shortness of breath, please return for re-evaluation. Almanzar ultrasonido no revel? ninguna evidencia de TVP en la isabel mendez. Rupali un seguimiento con almanzar cirujano vascular, el Dr. Hughes. Llama ma?ngoc para concertar moira jose david. Contin?e tomando los narc?ticos recetados y Tylenol. Si se presenta alg?n s?ntoma nuevo o que empeora, incluidos, entre otros, empeoramiento del dolor, fiebre o escalofr?os, dolor en el pecho o dificultad para respirar, regrese para moira nueva evaluaci?n. Prescriptions: No Action (DME) adhesive bandage 1 bandage See Rx Instructions .ROUTE .MEDSUPPLY Qty: 20 5RF Rx Instructions: Use after Methotrexate injection Incruse Ellipta 62.5 mcg/actuation blister with device 1 inh PO DAILY Qty: 30 6RF ascorbate calcium (vitamin C) 500 mg tablet 1 g PO DAILY 90 Days Qty: 180 2RF vitamin A palmitate 3,000 mcg (10,000 unit) tablet 10,000 unit PO DAILY Qty: 90 1RF cholecalciferol (vitamin D3) [Vitamin D3] 25 mcg (1,000 unit) capsule 25 mcg PO QAM Qty: 90 2RF gabapentin 400 mg capsule 400 mg PO TID trazodone 150 mg tablet 1 tab PO BEDTIME PRN (Reason: Sleep) ferrous sulfate [FeroSul] 325 mg (65 mg iron) tablet 1 tab PO QAM albuterol sulfate [ProAir HFA] 90 mcg/actuation HFA aerosol inhaler 2 puff PO Q4-6H PRN (Reason: Wheezing) nystatin 100,000 unit/gram powder 1 appl topical BID PRN (Reason: Rash) lidocaine [Lidoderm] 5 % adhesive patch,medicated 1 patch topical DAILY PRN (Reason: Pain) Rx Instructions: leave on most painful area for up to 12 hrs nicotine 21 mg/24 hr Patch 24 Hour 21 mg transdermal DAILY Qty: 30 0RF oxycodone 5 mg Tablet 10 mg PO Q4H PRN (Reason: Pain, Moderate(Pain Scale 4-6)) Qty: 30 0RF Rx Instructions: Partial Fill upon patient request. docusate sodium 100 mg capsule 100 mg PO BEDTIME PRN (Reason: Constipation) alprazolam 1 mg tablet 1 mg PO BEDTIME PRN (Reason: Anxiety) Eliquis 5 mg tablet 5 mg PO BID acetaminophen 500 mg tablet 500 - 1,000 mg PO Q8-10H PRN (Reason: pain) Qty: 100 4RF benztropine 0.5 mg tablet 0.5 mg PO QAM pantoprazole 40 mg tablet,delayed release (DR/EC) 40 mg PO DAILY Qty: 90 1RF oxycodone-acetaminophen 5-325 mg tablet 1 tab PO Q8H PRN (Reason: severe pain) famotidine 20 mg tablet 20 mg PO BID risperidone 1 mg tablet PO cilostazol 50 mg tablet 50 mg PO prednisone 2.5 mg tablet See Rx Instructions .ROUTE .COMPLEX Qty: 90 3RF Rx Instructions: take two in mornings and one in evenings methotrexate sodium 2.5 mg tablet 20 mg PO QWEEK Qty: 96 1RF Referrals: [facility] [place] Vascular Services [Provider Group] Interventions: ED Discharge Assessment Last Done: 05/09/23 15:18 Discharge Date/Time: 05/09/23 15:19 Print Language: Bhutanese
[2023-05-09 12:10] VITALS: BP 117/64; PULSE 78; RESP 16; TEMP 36.1; O2SAT 98
[2023-05-09 12:41] LABS: Alanine Aminotransferase 7 U/L (0-31); Alkaline Phosphatase 61 U/L (39-117); Anion Gap 16 (12-20); Aspartate Amino Transferase 13 U/L (5-31); Bilirubin Direct 0.1 mg/dL (0.0-0.5); Bilirubin Total 0.3 mg/dL (0.0-1.0); Blood Urea Nitrogen 10 mg/dL (9-16); Calcium 9.8 mg/dL (8.4-10.2); Carbon Dioxide 23 mmol/L (22-29); Chloride 105 mmol/L (96-108); Creatinine Clr Calc Pharmacy 107.3; Estimated Glomerular Filt Rate > 60; Glucose Random 106 mg/dL (60-115); Potassium 3.9 mmol/L (3.3-5.1); Sodium 140 mmol/L (135-145); Total Protein 8.6 g/dL (6.5-8.0)
--- NOTE | 2023-05-09 12:56 | PC.NURSE ---
PT AWAITING U/S. RESTING QUIETLY ON STRETCHER IN NAD.
== END 2023-05-09 15:19 | disposition home or self-care (01) ==
PROVIDERS: Physician Assistant Medical; Emergency Provider Emergency Medicine; PCP General Practice
DX: M79.661 Pain in right lower leg (principal); F11.20 Opioid dependence, uncomplicated; R60.0 Localized edema; Z79.01 Long term (current) use of anticoagulants; Z86.718 Personal history of other venous thrombosis and embolism; Z79.899 Other long term (current) drug therapy
CPT/HCPCS: 36415; 80048; 80076; 85025; 85610; 85730; 93971; 99284

== ENCOUNTER 2023-05-14 10:59 | Emergency (ER) | payer MEDICAID, SELFPAY ==
[2023-05-14 11:37] VITALS: BP 100/63; PULSE 64; RESP 17; TEMP 36.2; O2SAT 95; BMI 26.6
--- NOTE | 2023-05-14 11:38 | ED_ITS ---
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 Patient states that over the last 2 weeks she has had increased joint pain. Patient denies any dizziness, lightheadedness, abdominal pain, nausea, vomiting, fever, chills, blurry vision, double vision, loss of vision, chest pain, difficulty breathing, shortness of breath, back pain, night sweats, pain with urination, increased urinary frequency, increased urinary urgency, blood in her urine or stool, syncope or a near syncopal episode, recent trauma or falls, bowel incontinence, bladder incontinence, bowel retention, bladder retention, or any other complaints at this time. Onset (ago): week(s) (2) Location: left, right, upper extremity and lower extremity Radiation: non-radiation Severity: mild Severity scale (1-10): 4 Quality: aching and dull Pain Consistency: constant Relieving factors: none Exacerbating factors: none Associated symptoms: denies other symptoms Treatments prior to arrival: none Related Data Home Medications Medication Instructions Recorded Confirmed albuterol sulfate 90 mcg/actuation 2 puff PO Q4-6H PRN Wheezing 10/02/21 04/29/23 aerosol inhaler (ProAir HFA) ferrous sulfate 325 mg (65 mg 1 tab PO QAM 10/02/21 04/29/23 iron) tablet (FeroSul) gabapentin 400 mg capsule 400 mg PO TID 10/22/21 04/29/23 trazodone 150 mg tablet 1 tab PO BEDTIME PRN Sleep 10/22/21 04/29/23 docusate sodium 100 mg capsule 100 mg PO BEDTIME PRN Constipation 04/19/22 04/29/23 apixaban 5 mg tablet (Eliquis) 5 mg PO BID 09/22/22 04/29/23 alprazolam 1 mg tablet 1 mg PO BEDTIME PRN Anxiety 12/10/22 04/29/23 benztropine 0.5 mg tablet 0.5 mg PO QAM 01/17/23 04/29/23 lidocaine 5 % topical patch 1 patch topical DAILY PRN Pain 04/20/23 04/29/23 (Lidoderm) methotrexate sodium 2.5 mg tablet 20 mg PO Q2W 04/20/23 04/29/23 nystatin 100,000 unit/gram topical 1 appl topical BID PRN Rash 04/20/23 04/29/23 powder prednisone 2.5 mg tablet 2.5 mg PO DAILY 04/20/23 04/29/23 Previous Rx's Medication Instructions Recorded adhesive bandage 1 #20 ea 05/21/20 acetaminophen 500 mg tablet 500 - 1,000 mg (1 - 2 x 500 mg) PO 09/22/22 Q8-10H PRN pain #100 tabs umeclidinium 62.5 mcg/actuation 1 inh PO DAILY #30 ea 11/29/22 blister powder for inhalation (Incruse Ellipta) ascorbate calcium (vitamin C) 500 1 g (2 x 500 mg) PO DAILY 90 days 12/21/22 mg tablet #180 tabs vitamin A palmitate 3,000 mcg 10,000 unit PO DAILY #90 tabs 12/21/22 (10,000 unit) tablet pantoprazole 40 mg tablet,delayed 40 mg PO DAILY #90 tabs 01/17/23 release cholecalciferol (vitamin D3) 25 25 mcg PO QAM #90 caps 02/28/23 mcg (1,000 unit) capsule (Vitamin D3) nicotine 21 mg/24 hr daily 21 mg transdermal DAILY #30 ea 04/21/23 transdermal patch oxycodone 5 mg tablet 10 mg (2 x 5 mg) PO Q4H PRN Pain, 04/21/23 Moderate(Pain Scale 4-6) #30 tabs Allergies Allergy/AdvReac Type Severity Reaction Status Date / Time almond [ALMONDS] Allergy Severe ANAPHYLAXIS Verified 04/29/23 10:15 adhesive tape [ADHESIVE TAPE] Allergy Intermediate RASH Verified 04/29/23 10:15 morphine [MORPHINE] Allergy Intermediate GI UPSET, Verified 04/29/23 10:15 difficulty breathing tramadol [TRAMADOL] AdvReac Unknown NAUSEA & Verified 04/29/23 10:15 VOMITING Review of Systems 2 Constitutional: Constitutional: Reports no additional constitutional complaints, Denies chills, Denies fever(s) and Denies night sweats Eyes: Eyes: Reports no additional eye complaints, Denies blurry vision, Denies change in vision, Denies diplopia, Denies eye discharge, Denies loss of vision and Denies eye pain ENT: Denies dizziness Cardiovascular: Cardiovascular: Reports no additional cardiovascular complaints, Denies chest pain, Denies lightheadedness, Denies Loss of Consciousness and Denies dyspnea Respiratory: Respiratory: Reports no additional respiratory complaints and Denies dyspnea Gastrointestinal: Gastrointestinal: Reports no additional gastrointestinal complaints, Denies abdominal pain, Denies melena, Denies hematochezia, Denies change in bowel habits and Denies change in stool character Genitourinary: Genitourinary: Denies hematuria, Denies urinary frequency, Denies dysuria, Denies urinary incontinence, Denies urinary hesitancy and Denies urinary urgency Musculoskeletal: Musculoskeletal: Reports no additional musculoskeletal complaints, Denies numbness and Denies tingling Comments: bilateral ankle and hand pain Neurologic: Denies dizziness, Denies loss of vision, Denies numbness and Denies tingling Psychiatric: Psychiatric: Reports no additional psychiatric complaints Endocrine: Endocrine: Reports no additional endocrine complaints Hematologic/Lymphatic: Hematologic/Lymphatic: Reports no additional hematologic/lymphatic complaints Allergic/Immunologic: Allergic/Immunologic: Reports no additional allergic/immunologic complaints [facility] Past Medical History Attestation statement: The following information was validated with the patient. Source: old records reviewed and nursing notes reviewed Medical History Anxiety Achilles tendinitis Superficial femoral artery occlusion PAD (peripheral artery disease) Seropositive rheumatoid arthritis Knee pain, left Depression Hx of peripheral pulmonary artery stenosis History of chemotherapy Cancer of heart Bone cancer Lung cancer Bleeding hemorrhoid Degeneration, intervertebral disc, lumbar Chronic GERD Degeneration of intervertebral disc at C4-C5 level Osteoarthritis of spine with radiculopathy, lumbar region Fibromyalgia Esophageal dysphagia Vitamin D deficiency Systemic lupus erythematosus Seropositive rheumatoid arthritis Rheumatoid arthritis involving multiple sites Gallstones Stress incontinence in female Nocturia Urgency-frequency syndrome De Quervain's disease (tenosynovitis) Depressive disorder Acute arthritis Hodgkin disease Surgical History History of angioplasty of vein History of biopsy H/O tubal ligation Hx of endoscopy Hx laparoscopic cholecystectomy Hx of colonoscopy History of esophagogastroduodenoscopy (EGD) History of repair of inguinal hernia History of lymph node dissection of left axilla Family History Family History Maternal Grandmother Ovarian cancer Social History Social History Household Members: Spouse Housing: Apartment Are you a primary congregational care pastor to a significant other at home: No 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) Alcohol intake: never Patient Tobacco Use Status: Current everyday Tobacco user Tobacco use type: Cigarette Substance Use Type: Marijuana Advance Directives: No Advance Directives Information Provided: Yes Advance Directives Date on File: 09/23/20 service: No Current occupational status: disabled 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 Physical Exam ED Vital Signs: Vital Signs - 24 hr 05/14/23 11:37 05/14/23 19:06 Temperature 97.2 F 97.9 F Pulse Rate 64 68 Respiratory Rate 17 18 Blood Pressure 100/63 141/82 H Pulse Oximetry 95 98 Oxygen Delivery Method Room Air Room Air BMI result Body Mass Index 26.6 Const General: cooperative, no acute distress, alert and awake Nutritional Appearance: well nourished Orientation/consciousness: patient oriented x3 Limitations: no limitations HENMT Head: Yes normal to inspection and Yes atraumatic Ears: hearing grossly normal bilaterally and external ears normal General nose exam: Normal external nose present, no nasal discharge noted and no epistaxis Face and sinus: Yes normal facial exam, No abrasion and No laceration Mouth: Normal oral and palatal mucosa present, no drooling and no muffled voice Eyes General: appearance normal, both eyes and all related structures Periorbital: periorbital findings normal Eyelids: Yes eyelids normal Conjunctivae: conjunctivae normal Pupils: Equal, round and reactive pupils present EOM: EOMs intact bilaterally Neck Neck: Yes normal visual inspection, Yes full ROM and Yes no lymphadenopathy Chest Chest palpation & inspection: normal inspection of the chest Resp Effort & Inspection: normal respiratory effort and able to speak in complete sentences GI Inspection: Yes normal to inspection Neuro General: patient oriented x3 and moves all extremities Cranial nerves: Yes Equal, round and reactive pupils present Cognition (Neuro): normal cognition Motor exam (neuro): 5/5 motor strength present throughout Sensory Exam: Normal double simultaneous stimulation for sensation Coordination: [id number] test normal Extrem General: Yes normal to inspection, Yes full ROM and Yes capillary refill normal Psych Appearance: grossly normal Mental Status: mental status grossly normal Affect: normal affect Attitude: cooperative Thought process: Normal thought process present Thought content: Normal thought content present Insight: Good insight present (Psych) Course Course Course Narrative: 47 yo [place]-speaking female with PMH of RA on methotrexate, lupus, PAD, HARINI, opiate dependence on chronic percocet, DVT on eliquis, and non hodgkin's lymphoma here with swelling/pain to RLE x years, worsening 2 weeks. Now having pain/swelling to RUE. Seen here with 05/09 and had negative US. No known injury/trauma to the extremities. Defer additional assessment to primary provider. VSS Medications Administered Discontinued Medications Generic Name Dose Route Start Last Admin Trade Name Freq PRN Reason Stop Dose Admin Oxycodone HCl 10 mg 05/14/23 18:59 05/14/23 19:10 Oxycodone Hcl Immed Release 5 Mg Tablet PO 05/14/23 19:00 10 mg ONCE ONE Administration Medical Decision Making Medical Decision Making [facility] Narrative: Patient is a 47 year old assigned female at with a history of fibromyalgia and RA presenting to the emergency department today with bilateral hand and ankle pain. Patient's physical exam was unremarkable. Patient's blood work was unremarkable. I explained my physical exam findings as well as all test results to the patient. I answered all questions asked by the patient. Patient received 10mg of PO Oxycodone which she stated helped her symptoms significantly. I stressed the importance of the patient taking her medication as prescribed. I stressed the importance of the patient following up with her primary care provider. I stressed the importance of the patient returning to the emergency department immediately if her symptoms were to worsen or if she were to develop any dizziness, shortness of breath, difficulty breathing, chest pain, blurry vision, loss of vision, nausea, vomiting, abdominal pain, fever, chills, back pain, or any other complaints. Patient verbalized agreement and understanding with this treatment plan and discharge. Differential Diagnosis Differential Diagnoses: The differential diagnosis associated with the presentation includes RA Chronic pain Chronic joint pain Lab Data [facility] Lab Attestation statement: I reviewed the patient's lab results. My interpretation of these studies and their corresponding values is that they are grossly normal. 05/14/23 12:32 05/14/23 12:32 Labs: Lab Results 05/14/23 Range/Units 12:32 WBC 5.5 (4.8-10.8) X10*3/uL RBC 3.70 L (4.20-5.50) X10*6/uL Hgb 11.1 L (12.0-16.0) g/dl Hct 34.4 L (37.0-47.0) % MCV 93.0 (80.0-98.0) fL MCH 30.0 (27.0-33.0) pg MCHC 32.3 (31.0-35.0) g/dl RDW 13.9 (11.0-16.0) % Plt Count 288 (160-400) X10*3/uL MPV 9.7 (9.4-12.3) fL Immature Gran % (Auto) 0.2 (0.0-0.4) % Neut % (Auto) 55.7 (45-73) % Lymph % (Auto) 36.6 (20-40) % [place] % (Auto) 6.0 (2-11) % Eos % (Auto) 1.1 (0-4) % Baso % (Auto) 0.4 (0-2) % Lymph # (Auto) 2.0 (1.2-4.9) X10*3/uL [place] # (Auto) 0.3 (0.1-1.2) X10*3/uL Eos # (Auto) 0.1 (0.0-0.4) X10*3/uL Baso # (Auto) 0.0 (0.0-0.2) X10*3/uL Abs Immat Gran (auto) 0.01 (0.00-0.03) X10*3/uL Absolute Neuts (auto) 3.1 (2.0-8.3) x10*3/uL Absolute Nucleated RBC 0.000 (0.0-0.012) X10*3/uL Nucleated RBC % (auto) 0.0 (0.0-0.2) /100WBC ESR 77 H (0-20) MM/HR Sodium 141 (135-145) mmol/L Potassium 3.8 (3.3-5.1) mmol/L Chloride 108 (96-108) mmol/L Carbon Dioxide 23 (22-29) mmol/L Anion Gap 14 (12-20) BUN 11 (9-16) mg/dL Creatinine 0.64 (0.5-1.4) mg/dL Estim Creat Clear Calc 117.6 Estimated GFR > 60 Random Glucose 82 (60-115) mg/dL Calcium 9.3 (8.4-10.2) mg/dL Magnesium 2.2 (1.6-2.6) mg/dL Total Bilirubin 0.3 (0.0-1.0) mg/dL AST 14 (5-31) U/L ALT 9 (0-31) U/L Alkaline Phosphatase 64 (39-117) U/L C-Reactive Protein 1.15 H (< or = 0.50) mg/dL Total Protein 8.5 H (6.5-8.0) g/dL Albumin 4.0 (3.5-5.0) g/dL Discharge Plan Discharge Clinical Impression: Chronic pain Patient Disposition: Home, Self-Care Instructions: Chronic Pain (ED) Additional Instructions: Increase your pain dose medication at home. Follow up with your primary care provider. Return to the emergency department immediately if your symptoms worsen or if you develop any dizziness, shortness of breath, difficulty breathing, chest pain, blurry vision, loss of vision, nausea, vomiting, abdominal pain, fever, chills, back pain, or any other complaints. Aumente la dosis de kessler analg?sico en casa. Rupali un seguimiento con kessler proveedor de atenci?n primaria. Regrese al departamento de emergencias inmediatamente si addie s?ntomas empeoran o si presenta mareos, dificultad para respirar, dificultad para respirar, dolor en el pecho, visi?n borrosa, p?rdida de la visi?n, n?useas, v?mitos, dolor abdominal, fiebre, escalofr?os, dolor de espalda o cualquier otras quejas. Prescriptions: No Action (DME) adhesive bandage 1 bandage See Rx Instructions .ROUTE .MEDSUPPLY Qty: 20 5RF Rx Instructions: Use after Methotrexate injection Incruse Ellipta 62.5 mcg/actuation blister with device 1 inh PO DAILY Qty: 30 6RF ascorbate calcium (vitamin C) 500 mg tablet 1 g PO DAILY 90 Days Qty: 180 2RF vitamin A palmitate 3,000 mcg (10,000 unit) tablet 10,000 unit PO DAILY Qty: 90 1RF cholecalciferol (vitamin D3) [Vitamin D3] 25 mcg (1,000 unit) capsule 25 mcg PO QAM Qty: 90 2RF gabapentin 400 mg capsule 400 mg PO TID trazodone 150 mg tablet 1 tab PO BEDTIME PRN (Reason: Sleep) ferrous sulfate [FeroSul] 325 mg (65 mg iron) tablet 1 tab PO QAM albuterol sulfate [ProAir HFA] 90 mcg/actuation HFA aerosol inhaler 2 puff PO Q4-6H PRN (Reason: Wheezing) methotrexate sodium 2.5 mg tablet 20 mg PO Q2W Rx Instructions: every other tuesday prednisone 2.5 mg tablet 2.5 mg PO DAILY nystatin 100,000 unit/gram powder 1 appl topical BID PRN (Reason: Rash) lidocaine [Lidoderm] 5 % adhesive patch,medicated 1 patch topical DAILY PRN (Reason: Pain) Rx Instructions: leave on most painful area for up to 12 hrs nicotine 21 mg/24 hr Patch 24 Hour 21 mg transdermal DAILY Qty: 30 0RF oxycodone 5 mg Tablet 10 mg PO Q4H PRN (Reason: Pain, Moderate(Pain Scale 4-6)) Qty: 30 0RF Rx Instructions: Partial Fill upon patient request. docusate sodium 100 mg capsule 100 mg PO BEDTIME PRN (Reason: Constipation) alprazolam 1 mg tablet 1 mg PO BEDTIME PRN (Reason: Anxiety) Eliquis 5 mg tablet 5 mg PO BID acetaminophen 500 mg tablet 500 - 1,000 mg PO Q8-10H PRN (Reason: pain) Qty: 100 4RF benztropine 0.5 mg tablet 0.5 mg PO QAM pantoprazole 40 mg tablet,delayed release (DR/EC) 40 mg PO DAILY Qty: 90 1RF Referrals: Mackenzie Estrada MD [Primary Care Provider] - Interventions: ED Discharge Assessment Last Done: 05/14/23 19:11 Discharge Date/Time: 05/14/23 19:15 Print Language: [place]
[2023-05-14 12:38] LABS: MANUAL DIFF FLAG NO
[2023-05-14 12:39] LABS: Basophils Percent Auto 0.4 % (0-2); Eosinophils Absolute Auto 0.1 X10*3/uL (0.0-0.4); Eosinophils Percent Auto 1.1 % (0-4); Hematocrit 34.4 % (37.0-47.0); Hemoglobin 11.1 g/dl (12.0-16.0); Imm Gran Abs Auto 0.01 X10*3/uL (0.00-0.03); Imm Gran Pct Auto 0.2 % (0.0-0.4); Lymphocytes Percent Auto 36.6 % (20-40); Mean Corpuscular HGB Conc 32.3 g/dl (31.0-35.0); Mean Platelet Volume 9.7 fL (9.4-12.3); Monocytes Absolute Auto 0.3 X10*3/uL (0.1-1.2); Neutrophils Absolute Auto 3.1 x10*3/uL (2.0-8.3); Neutrophils Percent Auto 55.7 % (45-73); Platelet Count 288 X10*3/uL (160-400); Red Cell Distribution Width 13.9 % (11.0-16.0); White Blood Count 5.5 X10*3/uL (4.8-10.8)
[2023-05-14 13:02] LABS: C Reactive Protein 1.15 mg/dL (< or = 0.50)
[2023-05-14 13:03] LABS: Alanine Aminotransferase 9 U/L (0-31); Alkaline Phosphatase 64 U/L (39-117); Anion Gap 14 (12-20); Aspartate Amino Transferase 14 U/L (5-31); Bilirubin Total 0.3 mg/dL (0.0-1.0); Blood Urea Nitrogen 11 mg/dL (9-16); Calcium 9.3 mg/dL (8.4-10.2); Carbon Dioxide 23 mmol/L (22-29); Chloride 108 mmol/L (96-108); Creatinine Clr Calc Pharmacy 117.6; Estimated Glomerular Filt Rate > 60; Glucose Random 82 mg/dL (60-115); Magnesium 2.2 mg/dL (1.6-2.6); Potassium 3.8 mmol/L (3.3-5.1); Sodium 141 mmol/L (135-145); Total Protein 8.5 g/dL (6.5-8.0)
[2023-05-14 13:12] LABS: Erythrocyte Sedimentation Rate 77 MM/HR (0-20)
[2023-05-14 19:06] VITALS: BP 141/82; PULSE 68; RESP 18; TEMP 36.6; O2SAT 98
[2023-05-14] MEDS: oxyCODONE HCl Immed Release 5 MG TABLET 10 MG PO (19:10)
== END 2023-05-14 19:15 | disposition home or self-care (01) ==
PROVIDERS: Nurse Practitioner Family; Physician Assistant; Emergency Provider Emergency Medicine; PCP General Practice
DX: G89.29 Other chronic pain (principal); M25.572 Pain in left ankle and joints of left foot; M25.571 Pain in right ankle and joints of right foot; M06.9 Rheumatoid arthritis, unspecified; M79.642 Pain in left hand; M79.641 Pain in right hand
CPT/HCPCS: 36415; 80053; 83735; 85025; 85652; 86140; 99283; 99284

== ENCOUNTER 2023-05-16 09:26 | Outpatient (AMB) | payer MEDICAID, SELFPAY ==
--- NOTE | 2023-05-16 09:54 | A.OFFVIS_ITS ---
Intake Vital Signs 05/16/23 09:56 Height 5 ft 7 in Weight 198 lb 10.184 oz BMI 31.1 BP 124/82 Blood Pressure Location Lt brachial Position Sitting Pulse 78 Pulse Source Pulse Oximeter Temp 97.7 F Temp Source Skin Pulse Oximetry (%) 100 Oxygen Delivery Method Room Air Intake Visit Reasons: pain/swelling Intake Note: Patient presents today to follow up on RA. Seen at [facility] 05/09/23 for leg pain. Patient is having difficulty walking. Feels discharge in left ear. Patient's weight has gone up from 170 to 198 in 2 days. Auto Roller Required: Yes Auto Roller Language: [employer]erv[employer] Keeper Name: Eduardo [id number] Information Interpreted: clinical only Accompanied by: Self / Same As Patient Allergies almond [ALMONDS] Allergy (Severe, Verified 05/16/23 10:04) ANAPHYLAXIS adhesive tape [ADHESIVE TAPE] Allergy (Intermediate, Verified 05/16/23 10:04) RASH morphine [MORPHINE] Allergy (Intermediate, Verified 05/16/23 10:04) GI UPSET, difficulty breathing tramadol [TRAMADOL] Adverse Reaction (Unknown, Verified 05/16/23 10:04) NAUSEA & VOMITING Medication List - Last Reconciled 05/16/23 by Tom Ram MD acetaminophen 500 - 1,000 mg (1 - 2 x 500 mg) PO Q8-10H PRN adhesive bandage Use after Methotrexate injection albuterol sulfate 90 mcg/actuation (ProAir HFA) 2 puffs PO Q4-6H PRN alprazolam 1 mg PO BEDTIME PRN apixaban (Eliquis) 5 mg PO BID ascorbate calcium (vitamin C) 1 g (2 x 500 mg) PO DAILY 90 days benztropine 0.5 mg PO QAM cholecalciferol (vitamin D3) (Vitamin D3) 25 mcg PO QAM cilostazol 50 mg PO docusate sodium 100 mg PO BEDTIME PRN famotidine 20 mg PO BID ferrous sulfate (FeroSul) 1 tab PO QAM gabapentin 400 mg PO TID lidocaine 5% (Lidoderm) 1 patch topical DAILY PRN methotrexate sodium 20 mg PO Q2W nicotine 21 mg transdermal DAILY nystatin 1 appl topical BID PRN oxycodone 10 mg (2 x 5 mg) PO Q4H PRN oxycodone-acetaminophen 5-325 mg 1 tab PO Q8H PRN pantoprazole 40 mg PO DAILY prednisone take two in mornings and one in evenings; risperidone mg PO trazodone 1 tab PO BEDTIME PRN umeclidinium 62.5 mcg/actuation (Incruse Ellipta) 1 inh PO DAILY vitamin A palmitate 10,000 units PO DAILY HPI HPI Comments History of Present Illness Details The patient returns for evaluation of his seropositive rheumatoid arthritis. We used the iPad translating service to facilitate the visit. She is again in tears complaining of rather diffuse joint pains in the right hand, right foot, and right knee. After much discussion she reveals that she has cut the methotrexate down to every other Tuesday at 20 mg. She feels it was not working very well. She remains on folic acid 1 mg daily and the prednisone is down to 2.5 mg daily. I had not intended her to drop that low on the prednisone. She has been in the ER about every 7 to 10 days with various pains. She remains on narcotics as well. She had another venous ultrasound of her leg looking for DVT but none was found. She remains on the apixaban for DVT prophylaxis. She had received 2 doses of rituximab back in March. When I saw her after that she seem to be doing much better. [facility] Medical History (Updated 05/15/23 @ 11:43 by Tom Ram MD) Seropositive rheumatoid arthritis Anxiety Achilles tendinitis Superficial femoral artery occlusion PAD (peripheral artery disease) Knee pain, left Depression Hx of peripheral pulmonary artery stenosis History of chemotherapy Cancer of heart Bone cancer Lung cancer Bleeding hemorrhoid Degeneration, intervertebral disc, lumbar Chronic GERD Degeneration of intervertebral disc at C4-C5 level Osteoarthritis of spine with radiculopathy, lumbar region Fibromyalgia Esophageal dysphagia Vitamin D deficiency Systemic lupus erythematosus Seropositive rheumatoid arthritis Rheumatoid arthritis involving multiple sites Gallstones Stress incontinence in female Nocturia Urgency-frequency syndrome De Quervain's disease (tenosynovitis) Depressive disorder Acute arthritis Hodgkin disease Surgical History History of angioplasty of vein History of biopsy H/O tubal ligation Hx of endoscopy Hx laparoscopic cholecystectomy Hx of colonoscopy History of esophagogastroduodenoscopy (EGD) History of repair of inguinal hernia History of lymph node dissection of left axilla Family History Maternal Grandmother Ovarian cancer Social History Household Members: Spouse Housing: Apartment Are you a primary career education teacher to a significant other at home: No Do 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 have 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 or other home services: Yes (benefits advisor) Alcohol intake: never Patient Tobacco Use Status: Current everyday Tobacco user Tobacco use type: Cigarette Substance Use Type: Marijuana Advance Directives Date on File: 09/23/20 service: No Current occupational status: disabled 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 Negative for appetite change, weight change, fever, chills, malaise Card Details: Negative chest pain, edema and syncope Resp Details: Negative for SOB, cough and wheezing GI Details: Negative indigestion/heartburn, nausea, abdominal pain, bowel changes, diarrhea, constipation and bloody stool. Endo Details: Negative for polyuria and polydypsia Ki/Lymph Details: Negative for excessive bruising or bleeding. Physical Exam Vital Signs: Last Vital Signs Temp 97.7 F 05/16/23 09:56 Pulse 78 05/16/23 09:56 BP 124/82 05/16/23 09:56 Pulse Ox 100 05/16/23 09:56 Oxygen Delivery Method Room Air 05/16/23 09:56 BMI result Body Mass Index 31.1 APPEARANCE: Patient in no acute distress EYES no redness, pupils equal and reactive to light, eyelids normal EXTREMITIES: No edema. There is some mild tenderness in the right lateral calf. SKIN: Nontender, Rheumatoid nodules are evident over the elbows, pinna of the ears and the hands. No other inflammatory or neoplastic lesions. EARS:? External ears on both sides have some tiny nodules over the helix of the ear.? These are not tender today tender.? They have no drainage evident. Her auditory canals arel clear and tympanic membrane normal JOINT EXAM: Cervical Spine:.? Mild pain with extremes of motion.? Mild cervical muscle tenderness. Thoracic Spine:.? No scoliosis.? No tenderness on palpation. Lumbar Spine:.? Alignment normal.? Full range of motion with pain at the extremes.? Mild paraspinal muscle tenderness. Chest Wall:.? No tenderness, swelling, increased warmth or erythema. Hands:. right:? There slight swelling at the 1st 3 MCP joints.? Today there [id number] tenderness over the 2nd and 3rd MCP. There is also some tenderness over the 2nd 3rd PIP joints. She has [id number] tenderness over the flexor tendons in 2nd and 3rd fingers.? She may have some slight sensory loss.? There are some nontender rheumatoid nodules evident.? Her hand does seem to be warm and well perfused. ? There is no objective sign of Raynaud's phenomenon.?? Left:? There is? mild swelling without tenderness of the 2nd through 4th MCP joints.? There is similar mild thickening and mild tenderness at the 2nd through 4th PIP joints. Wrists: ? Right:? Mild swelling and moderate tenderness. There is pain with more than 30 degrees flexion or extension.Left:? 75 degrees flexion extension without tenderness or swelling. There is no redness or warmth. Elbows:? Right:? there are nodules felt over the ulnar area and in the olecranon region bilaterally.?These are slightly tender.? There is some eschar and some evidence of dry drainage.? There is no pain with range of motion at the elbow.? There is some minimal tenderness over the joint space without swelling. ? Left:? She has normal pain-free range of motion without tenderness, swelling, increased warmth or erythema in the left elbow joint.? There is 2 small nodules that are slightly tender with no evidence of dry discharge. Shoulders: ? Right:? There is mild to moderate pain with abduction at 90 degrees or with more than 10 degrees of internal or external rotation.? There is mild anterior and posterior tenderness.? There is no axillary or supraclavicular adenopathy.? There is no abductor weakness.? Left:?? Full range of motion with? Slight discomfort at the extremes.? There is no tenderness without swelling, adenopathy, increased warmth or erythema. Hips:? Full range of motion with some lower back pain with extremes of internal and external rotation.? No groin pain with motion. Hip bursa:? ? Mild trochanteric tenderness on the right. ? Knees: ? Right:? From there is mild patellofemoral crepitus and no pain with the extremes of flexion or extension.? Mild medial tenderness and mild patellofemoral crepitus.? No redness or effusion. ? Left: Mild patellofemoral crepitus and no pain with extremes of flexion extension.? Slight medial tenderness without redness or effusion. Ankles:? Right: There is mild to moderate pain with range of motion the ankle. There is mild medial and lateral tenderness with some slight swelling but no redness or warmth. Left: Normal pain-free range of motion with mild tenderness but no swelling, increased warmth or erythema. Feet:? Right:? There is mild to moderate tenderness at the 1st 2 MTP joints.? The 1st toenail may be a bit loose but the surrounding cuticle is not tender or swollen.? There is also mild tenderness in the distal instep.? Left:? Slight tenderness at the 1st 2 MTP joints and in the instep.? No redness or warmth.? Tender points:?? mild tenderness to digital palpation at the occiput, trapezius, second rib, lateral epicondyle, knees, greater trochanter and gluteal area bilaterally ? 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 regularly requiring prednisone. methotrexate and hydroxychloroquine ?2019 Xeljanz 05/2020-08/2020(ineffective) 2020 methotrexate and Humira(HCQ stopped - ?vision changes). 06/2022 Humira stopped due to poor repsonse 06/2022 methotrexate and Actemra 12/2022: Actemra stopped by the patient. She had some leg swelling as well. 03/10/2023 and 03/24/23: 1 g on each day rituximab administered Code(s): M05.9 - Rheumatoid arthritis with rheumatoid factor, unspecified Plan The patient at present looks like she has had increased symptoms from the rheumatoid arthritis. Whatever improvement she started to have last month has been aborted by her reduction of the prednisone and methotrexate dosages. I told her to go back on the 20 mg weekly methotrexate. She will increase the prednisone up to 5 mg in the morning and 2.5 in the afternoon but take an extra 5 mg this afternoon. Symptom control of course is limited by what I think is some underlying fibromyalgia as well. I told her I would want to give her another dose of the rituximab probably in late July or early August as I think it did have some benefit initially but now with the mixup of her medications that might have been aborted. I will recheck her labs before the next visit in about 6 weeks. Orders: Orders Erythrocyte Sedimentation Rate Today M05.9 - Rheumatoid arthritis with rheumatoid factor, unspecified C Reactive Protein Today M05.9 - Rheumatoid arthritis with rheumatoid factor, unspecified Erythrocyte Sedimentation Rate Today M05.9 - Rheumatoid arthritis with rheumatoid factor, unspecified C Reactive Protein Today M05.9 - Rheumatoid arthritis with rheumatoid factor, unspecified Alanine Aminotransferase Today M05.9 - Rheumatoid arthritis with rheumatoid factor, unspecified, Z79.899 - Other nursing home (current) drug therapy Aspartate Amino Transferase Today M05.9 - Rheumatoid arthritis with rheumatoid factor, unspecified, Z79.899 - Other nursing home (current) drug therapy Creatinine Today M05.9 - Rheumatoid arthritis with rheumatoid factor, unspecified, Z79.899 - Other [employer] (current) drug therapy Alanine Aminotransferase Today M05.9 - Rheumatoid arthritis with rheumatoid factor, unspecified, Z79.899 - Other [employer] (current) drug therapy Aspartate Amino Transferase Today M05.9 - Rheumatoid arthritis with rheumatoid f actor, unspecified, Z79.899 - Other nursing home (current) drug therapy Complete Blood Count Auto Diff Today M05.9 - Rheumatoid arthritis with rheumatoid factor, unspecified, Z79.899 - Other [employer] (current) drug therapy Creatinine Today M05.9 - Rheumatoid arthritis with rheumatoid factor, unspecified, Z79.899 - Other nursing home (current) drug therapy Complete Blood Count Auto Diff Today M05.9 - Rheumatoid arthritis with rheumatoid factor, unspecified, Z79.899 - Other [employer] (current) drug therapy Medications: New methotrexate sodium 20 mg (8 x 2.5 mg) PO QWEEK 96 tabs 1RF Changed From prednisone take two in mornings and one in evenings; M05.9 - Rheumatoid arthritis with rheumatoid factor, unspecified To prednisone take two in mornings and one in evenings 90 tabs 3RF M05.9 - Rheumatoid arthritis with rheumatoid factor, unspecified Coding Level of Care Code Est Pt Level 4 (65468) Diagnoses Fibromyalgia M79.7 correction methotrexate user Z79.899 Seropositive rheumatoid arthritis M05.9
[2023-05-16 09:56] VITALS: BP 124/82; PULSE 78; TEMP 36.5; O2SAT 100; BMI 31.1
== END 2023-05-16 10:49 | disposition home or self-care (01) ==
PROVIDERS: PCP General Practice; Visit Provider Internal Medicine Rheumatology
DX: M05.79 Rheumatoid arthritis with rheumatoid factor of multiple sites without organ or systems involvement (principal); M79.7 Fibromyalgia; Z79.899 Other long term (current) drug therapy
CPT/HCPCS: 99214

== ENCOUNTER 2023-05-16 09:26 | Outpatient (REF) | payer MEDICAID, SELFPAY ==
[2023-05-16 11:33] LABS: MANUAL DIFF FLAG NO
[2023-05-16 11:45] LABS: Basophils Percent Auto 0.3 % (0-2); Eosinophils Percent Auto 0.6 % (0-4); Hematocrit 35.9 % (37.0-47.0); Hemoglobin 11.5 g/dl (12.0-16.0); Imm Gran Abs Auto 0.01 X10*3/uL (0.00-0.03); Imm Gran Pct Auto 0.2 % (0.0-0.4); Lymphocytes Absolute Auto 2.1 X10*3/uL (1.2-4.9); Lymphocytes Percent Auto 31.9 % (20-40); Mean Corpuscular Hemoglobin 30.4 pg (27.0-33.0); Mean Platelet Volume 9.9 fL (9.4-12.3); Monocytes Absolute Auto 0.4 X10*3/uL (0.1-1.2); Monocytes Percent Auto 5.7 % (2-11); Neutrophils Percent Auto 61.3 % (45-73); Platelet Count 306 X10*3/uL (160-400); Red Blood Count 3.78 X10*6/uL (4.20-5.50); Red Cell Distribution Width 13.8 % (11.0-16.0); White Blood Count 6.5 X10*3/uL (4.8-10.8)
[2023-05-16 12:38] LABS: Erythrocyte Sedimentation Rate 86 MM/HR (0-20)
[2023-05-16 12:40] LABS: Alanine Aminotransferase 9 U/L (0-31); Aspartate Amino Transferase 14 U/L (5-31); C Reactive Protein 1.75 mg/dL (< or = 0.50); Estimated Glomerular Filt Rate > 60
== END 2023-05-16 09:27 | disposition home or self-care (01) ==
LOC: HO.LAB 09:26
PROVIDERS: PCP General Practice; Visit Provider Internal Medicine Rheumatology
DX: M05.9 Rheumatoid arthritis with rheumatoid factor, unspecified (principal); M79.7 Fibromyalgia; Z79.899 Other long term (current) drug therapy
CPT/HCPCS: 36415; 82565; 84450; 84460; 85025; 85652; 86140; 99212

== ENCOUNTER 2023-05-26 18:30 | Outpatient (REF) | payer MEDICAID, SELFPAY ==
[2023-05-26 19:22] LABS: Influenza A PCR NEGATIVE (Negative); Influenza B PCR NEGATIVE (Negative); Resp Syncy Virus RNA Qual PCR NEGATIVE (Negative); SARS COV2 PCR INHOUSE NEGATIVE (Negative)
== END 2023-05-26 18:31 | disposition home or self-care (01) ==
LOC: HO.HHCLNP 18:30
PROVIDERS: Visit Provider Nurse Practitioner Primary Care
DX: Z11.52 Encounter for screening for COVID-19 (principal); J06.9 Acute upper respiratory infection, unspecified
CPT/HCPCS: 0241U

== ENCOUNTER 2023-06-03 13:10 | Emergency (ER) | payer MEDICAID, SELFPAY ==
--- NOTE | ~2023-06-03 | XR_ITS ---
EXAMINATION: CHEST 2 VIEWS CLINICAL INFORMATION: cough, pain. COMPARISON: 04/20/2023. TECHNIQUE: PA and lateral views of the chest obtained. FINDINGS: The lungs are well expanded. No focal infiltrate, effusion, edema, or pneumothorax. Cardiac and mediastinal silhouettes are within normal limits for technique. No acute bony abnormality seen. Surgical anuj in the right axilla and right upper quadrant of the abdomen. XR/XR chest 2V IMPRESSION: No evidence of acute disease
[2023-06-03 15:17] VITALS: BP 155/91; PULSE 80; RESP 18; TEMP 36.8; O2SAT 100; BMI 39.5
--- NOTE | 2023-06-03 15:17 | ED_ITS ---
HPI - General Adult General Chief complaint: Back Pain/Injury Stated complaint: Arm Hand Pain Swelling Sent by [facility] Time Seen by Provider: 06/03/23 15:58 Source: patient Mode of arrival: ambulatory Limitations: no limitations History of Present Illness HPI narrative: Patient is a 47-year-old female with longstanding history of chronic pain syndrome, fibromyalgia, rheumatoid arthritis, SLE, Hodgkin's disease, DVT on Eliquis presenting to emergency department with multiple complaints. She is endorsing an intermittent headache over the past few weeks, a productive cough for 3 weeks, intermittent diffuse anterior chest pain only during episodes of cough or deep inspiration, lower back pain described as a burning sensation diffusely across without genitourinary symptoms, bilateral knee pain without swelling/ erythema/warmth/deformity, bilateral wrist pain without erythema/warmth/deformity/swelling. She was seen at [facility] prior to her arrival, by her report she states that she was advised to come to the emergency department, upon review of their records the notes indicate that she requested to come to the emergency department for pain management as none of her home medications were working. She contacted her baker apprentice yesterday who prescribed her a course of prednisone which she has yet to pharmacy picking technician from the pharmacy. She also had a refill of her Percocet today from the pharmacy. She reports minimal improvement with her Percocet which she takes chronically for her pain. When asked she denies fevers, chills, neck pain, neck stiffness, precipitating injury Related Data Home Medications Medication Instructions Recorded Confirmed albuterol sulfate 90 mcg/actuation 2 puff PO Q4-6H PRN Wheezing 10/02/21 05/16/23 aerosol inhaler (ProAir HFA) ferrous sulfate 325 mg (65 mg 1 tab PO QAM 10/02/21 05/16/23 iron) tablet (FeroSul) gabapentin 400 mg capsule 400 mg PO TID 10/22/21 05/16/23 trazodone 150 mg tablet 1 tab PO BEDTIME PRN Sleep 10/22/21 05/16/23 docusate sodium 100 mg capsule 100 mg PO BEDTIME PRN Constipation 04/19/22 05/16/23 apixaban 5 mg tablet (Eliquis) 5 mg PO BID 09/22/22 05/16/23 alprazolam 1 mg tablet 1 mg PO BEDTIME PRN Anxiety 12/10/22 05/16/23 benztropine 0.5 mg tablet 0.5 mg PO QAM 01/17/23 05/16/23 lidocaine 5 % topical patch 1 patch topical DAILY PRN Pain 04/20/23 05/16/23 (Lidoderm) nystatin 100,000 unit/gram topical 1 appl topical BID PRN Rash 04/20/23 05/16/23 powder cilostazol 50 mg tablet 50 mg PO 05/16/23 05/16/23 famotidine 20 mg tablet 20 mg PO BID 05/16/23 05/16/23 oxycodone-acetaminophen 5 mg-325 1 tab PO Q8H PRN severe pain 05/16/23 05/16/23 mg tablet risperidone 1 mg tablet mg PO 05/16/23 05/16/23 Previous Rx's Medication Instructions Recorded adhesive bandage 1 #20 ea 05/21/20 acetaminophen 500 mg tablet 500 - 1,000 mg (1 - 2 x 500 mg) PO 09/22/22 Q8-10H PRN pain #100 tabs umeclidinium 62.5 mcg/actuation 1 inh PO DAILY #30 ea 11/29/22 blister powder for inhalation (Incruse Ellipta) ascorbate calcium (vitamin C) 500 1 g (2 x 500 mg) PO DAILY 90 days 12/21/22 mg tablet #180 tabs vitamin A palmitate 3,000 mcg 10,000 unit PO DAILY #90 tabs 12/21/22 (10,000 unit) tablet pantoprazole 40 mg tablet,delayed 40 mg PO DAILY #90 tabs 01/17/23 release cholecalciferol (vitamin D3) 25 25 mcg PO QAM #90 caps 02/28/23 mcg (1,000 unit) capsule (Vitamin D3) nicotine 21 mg/24 hr daily 21 mg transdermal DAILY #30 ea 04/21/23 transdermal patch oxycodone 5 mg tablet 10 mg (2 x 5 mg) PO Q4H PRN Pain, 04/21/23 Moderate(Pain Scale 4-6) #30 tabs methotrexate sodium 2.5 mg tablet 20 mg (8 x 2.5 mg) PO QWEEK #96 05/16/23 tabs prednisone 2.5 mg tablet See Rx Instructions .Route 05/16/23 .COMPLEX #90 tabs prednisone 20 mg tablet 20 mg PO DAILY #5 tabs 06/03/23 Allergies Allergy/AdvReac Type Severity Reaction Status Date / Time almond [ALMONDS] Allergy Severe ANAPHYLAXIS Verified 06/03/23 15:20 adhesive tape [ADHESIVE TAPE] Allergy Intermediate RASH Verified 06/03/23 15:20 morphine [MORPHINE] Allergy Intermediate GI UPSET, Verified 06/03/23 15:20 difficulty breathing tramadol [TRAMADOL] AdvReac Unknown NAUSEA & Verified 06/03/23 15:20 VOMITING Review of Systems Review of Systems: Yes all other systems are reviewed and are negative [facility] Past Medical History Attestation statement: The following information was validated with the patient. Source: old records reviewed Medical History Seropositive rheumatoid arthritis Anxiety Achilles tendinitis Superficial femoral artery occlusion PAD (peripheral artery disease) Knee pain, left Depression Hx of peripheral pulmonary artery stenosis History of chemotherapy Cancer of heart Bone cancer Lung cancer Bleeding hemorrhoid Degeneration, intervertebral disc, lumbar Chronic GERD Degeneration of intervertebral disc at C4-C5 level Osteoarthritis of spine with radiculopathy, lumbar region Fibromyalgia Esophageal dysphagia Vitamin D deficiency Systemic lupus erythematosus Seropositive rheumatoid arthritis Rheumatoid arthritis involving multiple sites Gallstones Stress incontinence in female Nocturia Urgency-frequency syndrome De Quervain's disease (tenosynovitis) Depressive disorder Acute arthritis Hodgkin disease Surgical History History of angioplasty of vein History of biopsy H/O tubal ligation Hx of endoscopy Hx laparoscopic cholecystectomy Hx of colonoscopy History of esophagogastroduodenoscopy (EGD) History of repair of inguinal hernia History of lymph node dissection of left axilla Family History Family History Maternal Grandmother Ovarian cancer Social History Social History Household Members: Spouse Housing: Apartment Are you a primary career manager to a significant other at home: No Do 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 have 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 or other home services: Yes (carton maker) Alcohol intake: never Patient Tobacco Use Status: Current everyday Tobacco user Tobacco use type: Cigarette Substance Use Type: Marijuana Advance Directives: No Advance Directives Information Provided: No Advance Directives Date on File: 09/23/20 service: No Current occupational status: disabled 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 No acute distress.?Normal affect. Neck: Normal inspection.? Neck supple.?? CVS: Heart sounds normal. Normal heart rate and rhythm.? Pulses normal.?? Respiratory: No respiratory distress.? Lung sounds clear to auscultation bilaterally?? Abdomen: Soft and non-tender. Normoactive bowel sounds. No CVA tenderness. Skin: Skin warm and dry.? Normal skin color.? No lesions. No areas of erythema, warmth Musculoskeletal: No lower extremity edema.? No calf ttp.?diffuse tenderness amongst the bilateral knees, bilateral wrists/hands, and diffusely across the lower back. No obvious joint deformities. Neuro: Moves all extremities spontaneously. Sensation intact bilaterally. CN II- XII intact. No focal neuro deficits. Ambulates with normal steady gait. Course Course Course Narrative: This is a rapid medical exam: Additional HPI, ROS, PE not included below will be deferred to primary provider. Patient is a 47-year-old female with history of chronic pain syndrome, fibromyalgia, bone and lung cancer, SLE presenting to the emergency department with complaint of headache, back pain, knee pain and wrist pain. Paperwork from [facility] states that patient arrived there and reported to staff that she was going to go to the ED for pain. Medical Decision Making Medical Decision Making MDM Narrative: Patient is a 47-year-old female with longstanding history of chronic pain syndrome, fibromyalgia, rheumatoid arthritis, SLE, Hodgkin's disease, DVT on Eliquis Presenting to the emergency department for evaluation of multiple complaints. she has been experiencing a productive cough, diffuse anterior chest pain only on coughing deep inspiration, clinically have low suspicion for ACS based on this history, LSCTA, XR imaging reveals No acute cardiopulmonary process or evidence of pneumonia, low suspicion for acute pulmonary embolism as she is anticoagulated with Eliquis and reports compliance. acute on chronic Diffuse lower back pain without palpable midline lumbar spine tenderness step-offs or deformities, atraumatic in nature, without associated genitourinary symptoms, has diffuse tenderness upon palpation, has history of known osteoarthritis of the lumbar spine with radiculopathy. no bladder bowel dysfunction. Examination without concern for cauda equinua syndrome. low suspicion for epidural or spinal abscess. Atraumatic in nature lower suspicion for acute fracture. Discussed with patient cannot exclude disc herniation, though given atraumatic nature this is lower of suspicion, do not feel that emergent MRI or CT is indicated at this time. urinalysis was obtained without signs of infection, microscopic hematuria is present though she is currently menstruating. Chronic arthralgias, with known history above, already having received prescription for prednisone but has yet to begin taking this, I do think that this would be of benefit for her. suspect symptoms consistent with arthritis/fibromyalgia. Reviewed with patient that given her current prescriptions for Percocet, alprazolam, and gabapentin I would not recommend treatment for her pain with any additional controlled substances. Advised that she will need to follow-up with her primary care provider and/or consider pain management. Differential Diagnosis Differential Diagnoses: The differential diagnosis associated with the presentation includes ( As noted above) Lab Data MDM Lab Attestation statement: I reviewed the patient's lab results. ( See narrative above) Labs: Lab Results 06/03/23 06/03/23 Range/Units 16:34 16:49 Urine Color Yellow Urine Appearance Clear Urine pH 5.5 (5.0-9.0) Ur Specific [place] 1.025 (1.005-1.025) Urine Protein Negative (Neg-Trace) mg/dL Urine Glucose (UA) Negative (Negative) mg/dL Urine Ketones Negative (Negative) mg/dL Urine Blood Large (3+) H (Negative) Urine Nitrite Negative (Negative) Ur Leukocyte Esterase Negative (Negative) Urine RBC >20 H (0-2) /HPF Urine WBC 0-5 (0-5) /HPF Ur Squamous Epith Cells 11-20 (0-2) /HPF Urine Bacteria 1+ (None Seen) Hyaline Casts 0-2 (0-2) /LPF COVID-19 (VANGIE) Negative (Negative) COVID-19 Clin Com See Note Influenza Type A (SUSAN) Negative (Negative) Influenza Type B (SUSAN) Negative (Negative) Influenza A & B Note See Note Independent Interpretation I performed an independent interpretation of an: Plain X-Ray ( I personally turbid chest x-ray and agree with radiologist impression, no acute cardiopulmonary process) Radiology Impression Discussion of test interpretation with radiology: I have reviewed the radiologist's reading. Radiologist Impression: XR/XR chest 2V IMPRESSION: No evidence of acute disease Independent Historian Clinical information obtained from an independent historian. History obtained from or confirmed by: Spouse ( present at bedside of confirms history) External Record Review External record reviewed: Office record and Outpatient record Prescription Management I considered prescription management with: Pain Medication ( already prescribed chronic pain medications; Percocet, in addition to gabapentin and alprazolam) Discharge Plan Discharge Clinical Impression: Chronic pain syndrome, Arthralgia Patient Disposition: Home, Self-Care Instructions: Arthralgia (ED), Pain Management (ED) Additional Instructions: as discussed, testing today for COVID And flu are negative. Urinalysis is without evidence of infection. Chest x-ray does not show any sign of pneumonia or abnormality. Please follow-up with your primary care provider, continue taking her Percocet, alprazolam, and gabapentin as prescribed. You may return back to emergency department any new or worsening symptoms or concerns. Prescriptions: No Action (DME) adhesive bandage 1 bandage See Rx Instructions .ROUTE .MEDSUPPLY Qty: 20 5RF Rx Instructions: Use after Methotrexate injection Incruse Ellipta 62.5 mcg/actuation blister with device 1 inh PO DAILY Qty: 30 6RF ascorbate calcium (vitamin C) 500 mg tablet 1 g PO DAILY 90 Days Qty: 180 2RF vitamin A palmitate 3,000 mcg (10,000 unit) tablet 10,000 unit PO DAILY Qty: 90 1RF cholecalciferol (vitamin D3) [Vitamin D3] 25 mcg (1,000 unit) capsule 25 mcg PO QAM Qty: 90 2RF prednisone 20 mg tablet 20 mg PO DAILY Qty: 5 0RF gabapentin 400 mg capsule 400 mg PO TID trazodone 150 mg tablet 1 tab PO BEDTIME PRN (Reason: Sleep) ferrous sulfate [FeroSul] 325 mg (65 mg iron) tablet 1 tab PO QAM albuterol sulfate [ProAir HFA] 90 mcg/actuation HFA aerosol inhaler 2 puff PO Q4-6H PRN (Reason: Wheezing) nystatin 100,000 unit/gram powder 1 appl topical BID PRN (Reason: Rash) lidocaine [Lidoderm] 5 % adhesive patch,medicated 1 patch topical DAILY PRN (Reason: Pain) Rx Instructions: leave on most painful area for up to 12 hrs nicotine 21 mg/24 hr Patch 24 Hour 21 mg transdermal DAILY Qty: 30 0RF oxycodone 5 mg Tablet 10 mg PO Q4H PRN (Reason: Pain, Moderate(Pain Scale 4-6)) Qty: 30 0RF Rx Instructions: Partial Fill upon patient request. docusate sodium 100 mg capsule 100 mg PO BEDTIME PRN (Reason: Constipation) alprazolam 1 mg tablet 1 mg PO BEDTIME PRN (Reason: Anxiety) Eliquis 5 mg tablet 5 mg PO BID acetaminophen 500 mg tablet 500 - 1,000 mg PO Q8-10H PRN (Reason: pain) Qty: 100 4RF benztropine 0.5 mg tablet 0.5 mg PO QAM pantoprazole 40 mg tablet,delayed release (DR/EC) 40 mg PO DAILY Qty: 90 1RF oxycodone-acetaminophen 5-325 mg tablet 1 tab PO Q8H PRN (Reason: severe pain) famotidine 20 mg tablet 20 mg PO BID risperidone 1 mg tablet PO cilostazol 50 mg tablet 50 mg PO prednisone 2.5 mg tablet See Rx Instructions .ROUTE .COMPLEX Qty: 90 3RF Rx Instructions: take two in mornings and one in evenings methotrexate sodium 2.5 mg tablet 20 mg PO QWEEK Qty: 96 1RF Referrals: Mackenzie Estrada MD [Primary Care Provider] -
[2023-06-03 16:09] VITALS: BP 147/73; PULSE 79; RESP 18; O2SAT 99
[2023-06-03 16:57] LABS: Appearance Urine Clear; Color Urine Yellow; Glucose Urine UA Negative (Negative); Leukocyte Esterase Urine Negative (Negative); Nitrite Urine Negative (Negative); PH 5.5 (5.0-9.0); Specific Gravity - Urine 1.025 (1.005-1.025); UMIC TRIGGER UACC YES; Urine Blood Large (3+) (Negative); Urine Ketones Negative (Negative); Urine Protein Negative (Neg-Trace)
[2023-06-03 16:58] LABS: COVID-19 Test Negative (Negative); IDNOW Serial# BCCEAD1C
[2023-06-03 17:00] LABS: Bacteria Urine 1+ (None Seen); Hyaline Casts Urine 0-2 /LPF (0-2); RBC Urine >20 /HPF (0-2); WBC Urine 0-5 /HPF (0-5)
[2023-06-03 17:01] LABS: IDNOW Serial# 08D9AD1C; Influenza A Negative (Negative); Influenza B2 Negative (Negative)
[2023-06-03 18:30] VITALS: BP 123/65; PULSE 68; RESP 18; TEMP 36.6; O2SAT 99
== END 2023-06-03 18:38 | disposition home or self-care (01) ==
PROVIDERS: Nurse Practitioner Family; Emergency Provider Emergency Medicine; PCP General Practice
DX: R05.9 Cough, unspecified (principal); R51.9 Headache, unspecified; G89.4 Chronic pain syndrome; R07.89 Other chest pain; M79.7 Fibromyalgia; M25.542 Pain in joints of left hand; M25.541 Pain in joints of right hand; F17.210 Nicotine dependence, cigarettes, uncomplicated; Z71.6 Tobacco abuse counseling; Z11.52 Encounter for screening for COVID-19; Z20.822 Contact with and (suspected) exposure to COVID-19; Z79.899 Other long term (current) drug therapy
CPT/HCPCS: 71046; 81001; 87502; 87635; 99283

== ENCOUNTER 2023-06-09 09:49 | Outpatient (AMB) | payer MEDICAID, SELFPAY ==
--- NOTE | 2023-06-09 10:42 | MHC.OFFVIS ---
Intake Vital Signs 06/09/23 10:44 Height 5 ft 2.83 in Weight 197 lb 8.547 oz BMI 35.2 BP 128/70 Blood Pressure Location Rt brachial Position Sitting Pulse 61 Pulse Source Pulse Oximeter Temp 97.2 F Temp Source Skin Pulse Oximetry (%) 98 Oxygen Delivery Method Room Air Intake Visit Reasons: having pain Intake Note: Patient presents today c/o of hand pain swelling. Seen at [facility] 06/03/23. Reports low dose prednisone is not helping. 20 mg has helped. Mountain Or [place]ac[place] Guide Required: Yes Mountain Or Glacier Guide Language: Aluminum Siding Applicator Name: Clari [id number] Information Interpreted: clinical only Accompanied by: Self / Same As Patient Allergies almond [ALMONDS] Allergy (Severe, Verified 06/09/23 10:42) ANAPHYLAXIS adhesive tape [ADHESIVE TAPE] Allergy (Intermediate, Verified 06/09/23 10:42) RASH morphine [MORPHINE] Allergy (Intermediate, Verified 06/09/23 10:42) GI UPSET, difficulty breathing tramadol [TRAMADOL] Adverse Reaction (Unknown, Verified 06/09/23 10:42) NAUSEA & VOMITING HPI HPI Comments History of Present Illness Details The patient returns for evaluation of her rheumatoid arthritis. She again had another ER visit for pain in her legs. She had called us with the complaint so we increased her prednisone from 5 b.i.d. up to 10 b.i.d.. Eventually that did help her to some degree. She has cut down the prednisone slightly show she currently is at 10 mg the morning and 5 mg in the afternoon. She is aware that the prednisone increases her appetite and she gains weight. She had last received a course of rituximab back in March. Initially there was a response but at last visit she had seemingly more synovitis. This might have been because she elected to take the methotrexate every other week. Since that time however she has been taking it weekly. She does not seem to have any side effects with the weekly methotrexate. She is also on folic acid, acetaminophen, ibuprofen 600 t.i.d., lidocaine patches, bupropion, risperidone and sertraline. [facility] Medical History Seropositive rheumatoid arthritis Anxiety Achilles tendinitis Superficial femoral artery occlusion PAD (peripheral artery disease) Knee pain, left Depression Hx of peripheral pulmonary artery stenosis History of chemotherapy Cancer of heart Bone cancer Lung cancer Bleeding hemorrhoid Degeneration, intervertebral disc, lumbar Chronic GERD Degeneration of intervertebral disc at C4-C5 level Osteoarthritis of spine with radiculopathy, lumbar region Fibromyalgia Esophageal dysphagia Vitamin D deficiency Systemic lupus erythematosus Seropositive rheumatoid arthritis Rheumatoid arthritis involving multiple sites Gallstones Stress incontinence in female Nocturia Urgency-frequency syndrome De Quervain's disease (tenosynovitis) Depressive disorder Acute arthritis Hodgkin disease Surgical History History of angioplasty of vein History of biopsy H/O tubal ligation Hx of endoscopy Hx laparoscopic cholecystectomy Hx of colonoscopy History of esophagogastroduodenoscopy (EGD) History of repair of inguinal hernia History of lymph node dissection of left axilla Family History Maternal Grandmother Ovarian cancer Social History (Updated 06/09/23 @ 10:52 by SARAI Crockett) Household Members: Spouse Housing: Apartment Are you a primary palliative care nurse to a significant other at home: No Do 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 have 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 or 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 Negative for appetite change, weight change, fever, chills, malaise Eyes Details: Negative for vision change, dry eyes,headaches and dizziness ENT Details: Negative for hearing change, tinnitus, oral ulcer, nose bleeds and oral dryness. Card Details: Negative chest pain, edema and syncope Resp Details: Negative for SOB, cough and wheezing GI Details: Negative indigestion/heartburn, nausea, abdominal pain, bowel changes, diarrhea, constipation and bloody stool. Endo Details: Negative for polyuria and polydypsia Ki/Lymph Details: Negative for excessive bruising or bleeding. Physical Exam Vital Signs: Last Vital Signs Temp 97.2 F 06/09/23 10:44 Pulse 61 06/09/23 10:44 BP 128/70 06/09/23 10:44 Pulse Ox 98 06/09/23 10:44 Oxygen Delivery Method Room Air 06/09/23 10:44 BMI result Body Mass Index 35.2 APPEARANCE: Patient in no acute distress. During the exam she is intermittently tearful. EXTREMITIES: No edema, no calf tenderness. SKIN: Nontender, Rheumatoid nodules are evident over the elbows, pinna of the ears and the hands. No other inflammatory or neoplastic lesions. EARS:? External ears on both sides have some tiny nodules over the helix of the ear.? These are not tender today tender.? They have no drainage evident. Her auditory canals are clear and tympanic membrane normal JOINT EXAM: Cervical Spine:.? Mild pain with extremes of motion.? Mild cervical muscle tenderness. Thoracic Spine:.? No scoliosis.? No tenderness on palpation. Lumbar Spine:.? Alignment normal.? Full range of motion with pain at the extremes.? Mild paraspinal muscle tenderness. Chest Wall:.? No tenderness, swelling, increased warmth or erythema. Hands:. right:? There slight swelling at the 1st 3 MCP joints.? Today there [id number] tenderness over the 1st 3 MCP joints. There is also slight thickening and slight tenderness over the 2nd and 3rd PIP joints. She has mild tenderness over the flexor tendons in 2nd and 3rd fingers.? She may have some slight sensory loss.? There are some nontender rheumatoid nodules evident.? Her hand does seem to be warm and well perfused. ? There is no objective sign of Raynaud's phenomenon.?? Left:? There is? mild swelling and moderate tenderness of the 2nd through 4th MCP joints.? There is similar mild thickening and mild tenderness at the 2nd through 5th PIP joints. Wrists: ? Right:? Mild swelling and moderate tenderness. There is pain with more than 30 degrees flexion or extension.Left:? There is mild pain with 45 degrees of flexion or extension with mild tenderness but no swelling, redness or warmth. Elbows:? Right:? there are nodules felt over the ulnar area and in the olecranon region bilaterally.?These are slightly tender.? There are no breaks in the skin and no drainage.? There is no pain with range of motion at the elbow.? There is some minimal tenderness over the joint space without swelling. ? Left:? She has normal pain-free range of motion without tenderness, swelling, increased warmth or erythema in the left elbow joint.? There is 2 small nodules that are slightly tender with no evidence of dry discharge. Shoulders: ? Right:? There is mild to moderate pain with abduction at 120 degrees or with more than 10 degrees of internal or external rotation.? There is mild anterior and posterior tenderness.? There is no axillary or supraclavicular adenopathy.? There is no abductor weakness.? Left:?? Full range of motion with? Slight discomfort at the extremes.? There is no tenderness without swelling, adenopathy, increased warmth or erythema. Hips:? Full range of motion with some lower back pain with extremes of internal and external rotation.? No groin pain with motion. Hip bursa:? ? Mild trochanteric tenderness on the right. ? Knees: ? Right:? From there is mild patellofemoral crepitus and mild pain with the extremes of flexion or extension.? Mild medial tenderness and mild patellofemoral crepitus.? No redness or effusion. ? Left: Mild patellofemoral crepitus and no pain with extremes of flexion extension.? Slight medial tenderness without redness or effusion. Ankles:? Right: There is mild to moderate pain with range of motion the ankle. There is mild medial and lateral tenderness with some slight swelling but no redness or warmth. There is [id number] tenderness and thickening over the Achilles tendon. Left: Normal pain-free range of motion with mild tenderness but no swelling, increased warmth or erythema. Feet:? Right:? There is mild to moderate tenderness at the 1st 2 MTP joints.? There is also mild tenderness in the distal instep.? Left:? Slight tenderness at the 1st 2 MTP joints and in the instep.? No redness or warmth.? Tender points:? 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 regularly requiring prednisone. methotrexate and hydroxychloroquine ?2019 Xeljanz 05/2020-08/2020(ineffective) 2020 methotrexate and Humira(HCQ stopped - ?vision changes). 06/2022 Humira stopped due to poor repsonse 06/2022 methotrexate and Actemra 12/2022: Actemra stopped by the patient. She had some leg swelling as well. 03/10/2023 and 03/24/23: 1 g on each day rituximab administered Code(s): M05.9 - Rheumatoid arthritis with rheumatoid factor, unspecified Plan Longstanding rheumatoid arthritis and in this patient the patient's synovitis seems to be still quite active. She had a transient improvement with the rituximab but then she on her own cut back on the methotrexate and that was associated with a flare. Now she is back on weekly methotrexate and her joints are still inflamed if not a bit worse. I think we would have to conclude the rituximab was not all that helpful. She has had multiple other trials with medications. She has gained some weight with the prednisone, not an unexpected complication. In the past she had been on triple therapy with methotrexate, hydroxychloroquine sulfasalazine. Eventually that combination became ineffective. The methotrexate has been continued. Xeljanz was added in late 2019 but then was chose to be ineffective. Humira was added to the methotrexate after that but was also ineffective. Actemra was added and that did not seem to result in any improvement. The most recent trial of rituximab was instituted in March. She has a history of a venous thrombosis in the arm and the leg raising a question of a coagulopathy. The antibodies for lupus anticoagulant syndrome were checked in the past and were negative but I think it is reasonable to repeat those. It appears she is committed to chronic, ongoing anticoagulation anyway. I therefore would like to try a a CECE inhibitor, baricitinib. There is a potential association of CECE inhibitors with venous thromboses but she will be committed on the anticoagulant anyway so I think it is worth the risk. She alternatively has only been reasonably comfortable taking relatively high doses of prednisone which clearly is not in her interest in the long run. We will see if we can get approval for the use of the baricitinib through her insurance. She will stay on the methotrexate 20 mg weekly for now. We will schedule follow-up in about 5- 6 weeks. Orders: Orders C Reactive Protein Today M05.9 - Rheumatoid arthritis with rheumatoid factor, unspecified Complete Blood Count Auto Diff Today M05.9 - Rheumatoid arthritis with rheumatoid factor, unspecified, Z79.899 - Other senior care (current) drug therapy Lupus Anticoagulant Panel Today I82.621 - Acute embolism and thrombosis of deep veins of right upper extremity Cardiolipin Antibodies Today I82.621 - Acute embolism and thrombosis of deep veins of right upper extremity Beta-2 Glycoprotein Antibody Today I82.621 - Acute embolism and thrombosis of deep veins of right upper extremity Erythrocyte Sedimentation Rate Today M05.9 - Rheumatoid arthritis with rheumatoid factor, unspecified Coding Level of Care Code Est Pt Level 4 (36961) Diagnoses Deep vein thrombosis, upper right extremity I82.621 snf methotrexate user Z79.899 Fibromyalgia M79.7 Seropositive rheumatoid arthritis M05.9
[2023-06-09 10:44] VITALS: BP 128/70; PULSE 61; TEMP 36.2; O2SAT 98; BMI 35.2
== END 2023-06-09 11:27 | disposition home or self-care (01) ==
PROVIDERS: PCP Emergency Medicine; Visit Provider Internal Medicine Rheumatology
DX: M05.79 Rheumatoid arthritis with rheumatoid factor of multiple sites without organ or systems involvement (principal); I82.621 Acute embolism and thrombosis of deep veins of right upper extremity; Z79.899 Other long term (current) drug therapy; M79.7 Fibromyalgia
CPT/HCPCS: 99214

== ENCOUNTER 2023-06-09 09:49 | Outpatient (REF) | payer MEDICAID, SELFPAY ==
[2023-06-09 12:10] LABS: MANUAL DIFF FLAG NO
[2023-06-09 13:33] LABS: Basophils Percent Auto 0.3 % (0-2); Eosinophils Percent Auto 0.3 % (0-4); Hematocrit 36.9 % (37.0-47.0); Hemoglobin 11.7 g/dl (12.0-16.0); Imm Gran Abs Auto 0.02 X10*3/uL (0.00-0.03); Imm Gran Pct Auto 0.3 % (0.0-0.4); Lymphocytes Absolute Auto 2.9 X10*3/uL (1.2-4.9); Lymphocytes Percent Auto 42.8 % (20-40); Mean Corpuscular HGB Conc 31.7 g/dl (31.0-35.0); Mean Corpuscular Hemoglobin 29.9 pg (27.0-33.0); Mean Corpuscular Volume 94.4 fL (80.0-98.0); Monocytes Absolute Auto 0.4 X10*3/uL (0.1-1.2); Monocytes Percent Auto 5.6 % (2-11); Neutrophils Absolute Auto 3.4 x10*3/uL (2.0-8.3); Neutrophils Percent Auto 50.7 % (45-73); Platelet Count 318 X10*3/uL (160-400); Red Blood Count 3.91 X10*6/uL (4.20-5.50); Red Cell Distribution Width 14.3 % (11.0-16.0); White Blood Count 6.8 X10*3/uL (4.8-10.8)
[2023-06-09 14:12] LABS: Alanine Aminotransferase 8 U/L (0-31); Aspartate Amino Transferase 14 U/L (5-31); Erythrocyte Sedimentation Rate 85 MM/HR (0-20); Estimated Glomerular Filt Rate > 60
[2023-06-10 12:53] LABS: Cardiolipin IgG Ab <2.0 GPL-U/mL; Cardiolipin IgM Ab <2.0 MPL-U/mL
[2023-06-14 06:58] LABS: Beta-2 Glycoprotein IgA <2.0 U/mL (<20.0); Beta-2 Glycoprotein IgM <2.0 U/mL (<20.0)
[2023-06-16 05:18] LABS: PTT (LAC) Screen 34 sec (<=40)
== END 2023-06-09 09:50 | disposition home or self-care (01) ==
LOC: HO.LAB 09:49
PROVIDERS: PCP Emergency Medicine; Visit Provider Internal Medicine Rheumatology
DX: I82.621 Acute embolism and thrombosis of deep veins of right upper extremity (principal); M79.7 Fibromyalgia; Z79.899 Other long term (current) drug therapy
CPT/HCPCS: 36415; 82565; 84450; 84460; 85025; 85597; 85598; 85613; 85652; 85730; 86140; 86146; 86147; 99212

== ENCOUNTER 2023-06-21 10:42 | Outpatient (REF) | payer MEDICAID, SELFPAY ==
--- NOTE | ~2023-06-21 | US_ITS ---
EXAMINATION: US SOFT TISSUE OF THE NECK CLINICAL INFORMATION: Mass of the neck, left. Tender lump near hairline. COMPARISON: CT soft tissue neck 12/24/2016. TECHNIQUE: Linear transducer grayscale and color Doppler examination of the head/neck posterior. FINDINGS: Targeted ultrasound images were obtained by the lamp cleaner of lumps in the posterior midline hairline, posterior occipital left of midline and posterior left of midline hairline regions of neck. No discrete mass or fluid collection identified. Targeted ultrasound images of the area of concern indicated by the patient at the posterior occipital midline region correlates with a group of 3 lymph nodes, measuring 1.0 x 0.3 x 0.8 cm with echogenic hilum, 0.6 x 0.2 x 0.6 cm and 0.6 x 0.3 x 0.6 cm. US/US soft tiss head and/or neck IMPRESSION: 1. Lump indicated by patient at posterior midline neck correlates with a group of 3 lymph nodes. Correlation with clinical exam recommended to determine further management including additional imaging, treatment or biopsy. Recommend followup ultrasound in 3 months. 2. Targeted ultrasound imaging of 3 palpable lumps indicated by patient as detailed above demonstrate no discrete mass or fluid collection. Decisions regarding further imaging, treatment or biopsy should be based on the clinical exam, as not all abnormalities are detectable on ultrasound studies.
== END 2023-06-21 10:43 | disposition home or self-care (01) ==
LOC: HO.US 10:42
PROVIDERS: PCP Emergency Medicine; Visit Provider Emergency Medicine
DX: M79.89 Other specified soft tissue disorders (principal)
CPT/HCPCS: 76536

== ENCOUNTER 2023-06-22 08:00 | Outpatient (REF) | payer MEDICAID, SELFPAY ==
--- NOTE | ~2023-06-22 | MR_ITS ---
EXAMINATION: MR KNEE WITHOUT CONTRAST, LEFT CLINICAL INFORMATION: Left knee pain. COMPARISON: 04/02/2023 TECHNIQUE: MRI of the knee without contrast was performed using routine sequences on a high-field scanner. FINDINGS: MENISCI: Medial Meniscus: There is mildly increased intrasubstance signal within the posterior horn, most consistent with intrasubstance degeneration. No tears. Lateral Meniscus: Intact. LIGAMENTS: Cruciate: Intact. Collateral: There is mild focal edema signal around the MCL at the level of the joint line which could be due to a mild grade 1 sprain or contusion. No tears. Alternatively, the edema signal could be reactive to the intra-articular abnormalities, though no clear source is identified. LCL complex is normal. EXTENSOR MECHANISM: There is moderate tendinosis at the medial half of the quadriceps tendon at the insertion with surrounding soft tissue edema. No significant tears. Patellar tendon is normal. ARTICULAR CARTILAGE/BONE: Patellofemoral Compartment: Patellar and trochlear articular cartilage are normal. Normal trochlear morphology. Medial Compartment: Normal. Lateral Compartment: Normal. JOINT FLUID AND BURSAE: Small joint effusion and Dhillon's cyst. MR/MR knee LT wo con IMPRESSION: 1. Moderate quadriceps tendinosis at the medial half of the insertion. No tears. 2. Mild intrasubstance degeneration in the posterior horn of the medial meniscus without a discrete tear. 3. Small joint effusion and Dhillon's cyst.
== END 2023-06-22 08:01 | disposition home or self-care (01) ==
LOC: HO.MRI 08:00
PROVIDERS: PCP Emergency Medicine; Visit Provider Orthopaedic Surgery
DX: M25.562 Pain in left knee (principal)
CPT/HCPCS: 73721

== ENCOUNTER 2023-06-22 09:08 | Emergency (ER) | payer MEDICAID, SELFPAY ==
--- NOTE | ~2023-06-22 | XR_ITS ---
EXAMINATION: XR WRIST, RIGHT XR HAND, RIGHT CLINICAL INFORMATION: Right hand swelling. COMPARISON: X-ray of the right wrist June 2022 MRI of the right wrist November 2021 TECHNIQUE: 4 views of the right hand including wrist and including scaphoid view of the wrist FINDINGS: RIGHT WRIST: There is chondrocalcinosis along the ulnocarpal articulation. The bones joints and soft tissues are otherwise unremarkable. RIGHT HAND: The bones and soft tissues are normal. No fracture. Alignment is anatomic. Joint spaces are maintained. No erosions or soft tissue calcifications. XR/XR hand wrist RT IMPRESSION: RIGHT WRIST: Chondrocalcinosis. RIGHT HAND: Normal.
--- NOTE | ~2023-06-22 | US_ITS ---
EXAMINATION: US VENOUS ULTRASOUND WITH DOPPLER LOWER EXTREMITY, BILATERAL CLINICAL INFORMATION: Bilateral lower extremity pain COMPARISON: None available. TECHNIQUE: Ultrasound of the deep veins is performed from the hip to the calf with compression sonography and color and pulse Doppler assessment. Spectral analysis with color-flow imaging is performed. FINDINGS: RIGHT: There is normal venous compression and respiratory variation and augmented flow. The visualized common femoral vein, superficial femoral vein, profunda femoral vein, popliteal vein, and the trifurcation region shows no evidence of deep venous thrombosis. There is no significant popliteal fossa cyst. Small areas of fluid are seen, in the distal calf near the posterior tibial tendon. LEFT: There is normal venous compression and respiratory variation and augmented flow. The visualized common femoral vein, superficial femoral vein, profunda femoral vein, popliteal vein, and the trifurcation region shows no evidence of deep venous thrombosis. There is no significant popliteal fossa cyst. Small areas of fluid are seen in the distal calf medially posterior tibial tendon. If the patient's symptoms persist, followup ultrasound in 5 days 7 days might be of value to exclude proximal propagation from a non-visualized calf vein. US/US venous duplex LE IMPRESSION: No DVT demonstrated in the bilateral lower extremity.
--- NOTE | ~2023-06-22 | US_ITS ---
EXAMINATION: NONINVASIVE ASSESSMENT OF THE RIGHT LOWER EXTREMITY ARTERIES CLINICAL INFORMATION: Pain, history of PAD, stent COMPARISON: Arterial duplex on 04/20/2023 TECHNIQUE: duplex Doppler techniques with wave form analysis and measurement of velocities in the right common femoral, profunda femoral, superficial femoral, popliteal, tibial and peroneal arteries. The study was performed only at rest. FINDINGS: RIGHT LEG Common femoral artery: 186 cm/s, Multiphasic Profunda femoris artery: 188 cm/s, Multiphasic Superficial femoral artery (proximal): 191 cm/s, Multiphasic Superficial femoral artery (mid): Occluded Superficial femoral artery (distal): Occluded Proximal Popliteal artery: 31 cm/s, monophasic Mid posterior tibial artery: 57 cm/s, monophasic US/US arterial duplex LE RT IMPRESSION: Redemonstration of known occluded stent in the right mid-distal SFA. Monophasic flow distally in the right lower extremity.
--- NOTE | ~2023-06-22 | US_ITS ---
EXAMINATION: US VENOUS WITH DOPPLER UPPER EXTREMITY, RIGHT CLINICAL INFORMATION: Right upper extremity swelling. History of deep venous thrombosis. COMPARISON: None available. TECHNIQUE: Ultrasound of the upper extremity is performed using compression sonography and color and pulse Doppler flow with assessment of augmentation of flow. There is also imaging and Doppler assessment of the jugular and subclavian veins. Spectral analysis with color-flow imaging is performed. FINDINGS: Respiratory variation, normal compression, and augmented flow are noted throughout the upper extremity including the axillary, brachial, cubital, and radial and ulnar veins. There is normal flow in the internal jugular and subclavian veins. There is no visible deep or superficial thrombophlebitis. If the patient's symptoms progress, a followup ultrasound in 5 -7 days might be of value to exclude proximal propagation from a nonvisualized distal arm vein. US/US venous duplex UE RT IMPRESSION: No DVT demonstrated in the right upper extremity
[2023-06-22 09:16] VITALS: BP 141/87; PULSE 70; RESP 20; TEMP 36.9; O2SAT 97; BMI 31.7
[2023-06-22 12:05] VITALS: BP 117/64; PULSE 65; RESP 18; TEMP 36.7; O2SAT 98
--- NOTE | 2023-06-22 13:15 | ED_ITS ---
HPI - General Adult General Chief complaint: Extremity Injury, Lower Stated complaint: B/L Leg and Hand Pain Time Seen by Provider: 06/22/23 12:01 Source: patient Mode of arrival: ambulatory Limitations: no limitations History of Present Illness HPI narrative: 47-year-old female history of DVTs of lower and upper extremities, lupus, rheumatoid artritis, and peripheral arterial disease, stent, presents to the ED for bilateral lower extremity pain, and right upper extremity swelling. patient was having MRI today for left knee and started having bilateral lower extremity pain. Patient states right hand swelling for couple of days. Patient denies any left upper extremity swelling. Patient denies any lower extremity swelling. Patient denies any chest pain or shortness of breath. Related Data Home Medications Medication Instructions Recorded Confirmed albuterol sulfate 90 mcg/actuation 2 puff PO Q4-6H PRN Wheezing 10/02/2105/16 aerosol inhaler (ProAir HFA) ferrous sulfate 325 mg (65 mg 1 tab PO QAM 10/02/21 05/16/23 iron) tablet (FeroSul) gabapentin 400 mg capsule 400 mg PO TID 10/22/21 05/16/23 docusate sodium 100 mg capsule 100 mg PO BEDTIME PRN Constipation 04/19/22 05/16/23 apixaban 5 mg tablet (Eliquis) 5 mg PO BID 09/22/22 05/16/23 alprazolam 1 mg tablet 1 mg PO BEDTIME PRN Anxiety 12/10/22 05/16/23 benztropine 0.5 mg tablet 0.5 mg PO QAM 01/17/23 05/16/23 lidocaine 5 % topical patch 1 patch topical DAILY PRN Pain 04/20/23 05/16/23 (Lidoderm) nystatin 100,000 unit/gram topical 1 appl topical BID PRN Rash 04/20/23 05/16/23 powder cilostazol 50 mg tablet 50 mg PO 05/16/23 05/16/23 famotidine 20 mg tablet 20 mg PO BID 05/16/23 05/16/23 oxycodone-acetaminophen 5 mg-325 1 tab PO Q8H PRN severe pain 05/16/23 05/16/23 mg tablet risperidone 1 mg tablet mg PO 05/16/23 05/16/23 bupropion HCl 150 mg tablet,12 hr mg PO 06/09/23 sustained-release fluticasone propionate 50 2 spray intranasal QAM 06/09/23 mcg/actuation nasal spray,suspension folic acid 1 mg tablet 1 mg PO QAM 06/09/23 ibuprofen 600 mg tablet 600 mg PO Q8H PRN mild pain 06/09/23 sertraline 50 mg tablet 75 mg PO QAM 06/09/23 Previous Rx's Medication Instructions Recorded acetaminophen 500 mg tablet 500 - 1,000 mg (1 - 2 x 500 mg) PO 09/22/22 Q8-10H PRN pain #100 tabs umeclidinium 62.5 mcg/actuation 1 inh PO DAILY #30 ea 11/29/22 blister powder for inhalation (Incruse Ellipta) ascorbate calcium (vitamin C) 500 1 g (2 x 500 mg) PO DAILY 90 days 12/21/22 mg tablet #180 tabs pantoprazole 40 mg tablet,delayed 40 mg PO DAILY #90 tabs 01/17/23 release cholecalciferol (vitamin D3) 25 25 mcg PO QAM #90 caps 02/28/23 mcg (1,000 unit) capsule (Vitamin D3) nicotine 21 mg/24 hr daily 21 mg transdermal DAILY #30 ea 04/21/23 transdermal patch methotrexate sodium 2.5 mg tablet 20 mg (8 x 2.5 mg) PO QWEEK #96 05/16/23 tabs prednisone 2.5 mg tablet See Rx Instructions .Route 05/16/23 .COMPLEX #90 tabs baricitinib 2 mg tablet 2 mg PO DAILY #30 tabs 06/09/23 vitamin A palmitate 3,000 mcg 10,000 unit PO DAILY #90 tabs 06/15/23 (10,000 unit) tablet Allergies Allergy/AdvReac Type Severity Reaction Status Date / Time almond [ALMONDS] Allergy Severe ANAPHYLAXIS Verified 06/22/23 09:16 adhesive tape [ADHESIVE TAPE] Allergy Intermediate RASH Verified 06/22/23 09:16 morphine [MORPHINE] Allergy Intermediate GI UPSET, Verified 06/22/23 09:16 difficulty breathing tramadol [TRAMADOL] AdvReac Unknown NAUSEA & Verified 06/22/23 09:16 VOMITING Review of Systems Review of Systems: bilateral lower extremity pain. Right hand swelling. Yes all other systems are reviewed and are negative PMFSH Past Medical History Medical History Seropositive rheumatoid arthritis Anxiety Achilles tendinitis Superficial femoral artery occlusion PAD (peripheral artery disease) Knee pain, left Depression Hx of peripheral pulmonary artery stenosis History of chemotherapy Cancer of heart Bone cancer Lung cancer Bleeding hemorrhoid Degeneration, intervertebral disc, lumbar Chronic GERD Degeneration of intervertebral disc at C4-C5 level Osteoarthritis of spine with radiculopathy, lumbar region Fibromyalgia Esophageal dysphagia Vitamin D deficiency Systemic lupus erythematosus Seropositive rheumatoid arthritis Rheumatoid arthritis involving multiple sites Gallstones Stress incontinence in female Nocturia Urgency-frequency syndrome De Quervain's disease (tenosynovitis) Depressive disorder Acute arthritis Hodgkin disease Surgical History History of angioplasty of vein History of biopsy H/O tubal ligation Hx of endoscopy Hx laparoscopic cholecystectomy Hx of colonoscopy History of esophagogastroduodenoscopy (EGD) History of repair of inguinal hernia History of lymph node dissection of left axilla Family History Family History Maternal Grandmother Ovarian cancer Social History (Updated 06/09/23 @ 10:52 by SARAI Crockett) Household Members: Spouse Housing: Apartment Are you a primary hospice home care coordinator to a significant other at home: No 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) Alcohol intake: never Patient Tobacco Use Status: Current everyday Tobacco user Tobacco use type: Cigarette Cigarette Packs Per Day: 1 Smoked in Last 30 Days: No Use of substances other than those prescribed or required for medical reasons: No Substance Use Type: Marijuana Advance Directives: Yes Advance Directives on File: Yes Advance Directives Date on File: 09/23/20 service: No Current occupational status: disabled 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 Physical Exam ED Vital Signs: Vital Signs - 24 hr 06/22/23 09:16 06/22/23 12:05 06/22/23 17:22 Temperature 98.4 F 98.1 F 98.3 F Pulse Rate 70 65 71 Respiratory Rate 20 18 18 Blood Pressure 141/87 H 117/64 168/89 H Pulse Oximetry 97 98 98 Oxygen Delivery Method Room Air Room Air Room Air BMI result Body Mass Index 31.7 Const General: cooperative, healthy appearing, comfortable, no acute distress, well developed, alert and awake Orientation/consciousness: oriented to person, oriented to place, oriented to time and patient oriented x3 [facility] Head: Yes normal to inspection, Yes No palpable skull fracture present, Yes normocephalic and Yes atraumatic Eyes General: appearance normal, both eyes and all related structures Neck Neck: Yes normal visual inspection, Yes full ROM, Yes no lymphadenopathy, Yes no meningeal signs, Yes trachea midline, Yes supple, No anterior neck swelling and No tender Chest Chest palpation & inspection: normal inspection of the chest and normal palpation of entire chest wall Resp Effort & Inspection: normal respiratory effort and able to speak in complete sentences Auscultation: clear to auscultation bilaterally Cardio Jugular venous distension: no JVD Heart sounds: S1 normal heart sound present and S2 normal heart sound present GI Inspection: Yes normal to inspection and No abdominal wall ecchymosis Palpation (GI): Soft to palpation, not firm, nontender and no guarding General: Yes no CVA tenderness Back/Spine/Pelvis Back: no CVA tenderness and No back tenderness Skin General skin exam: no rashes or lesions noted and elasticity normal Neuro General: oriented to person, oriented to place, oriented to time, patient oriented x3, tone normal, moves all extremities, Normal light touch and pain sensation, no meningeal signs, no focal motor deficits, CN's II-XI intact bilaterally and normal sensation to monofilament Extrem Other: Positive for bilateral lower extremity calf tenderness on palpation. Bilateral lower extremitie normal temperatuure. Positive bilateral lower extremity neuro motor vascular exam intact. Bilateral lower extremity positive DP and PT pulses. Bilateral lower extremity negative for any swelling of the knees or deformities. negative for any knee redness or warmth Bilateral lower extremity negative for any swelling or redness. Positive for right hand swelling mostly slight swelling in the fingers. Patient states having this before due to her lupus and rheumatoid artrhtitis.. Right upper extremity motor/ neuro/vascular exam intact. Psych Appearance: grossly normal, well kempt and not disheveled Medications Administered Discontinued Medications Generic Name Dose Route Start Last Admin Trade Name Freq PRN Reason Stop Dose Admin Al Hydroxide/Mg Hydroxide 30 ml 06/22/23 17:00 06/22/23 17:16 Magnesium Hydrox/Alum Hydrox 30 Ml Oral.Susp PO 06/22/23 17:01 30 ml ONCE ONE Administration Belladonna Alkaloids/Phenobarbital 10 ml 06/22/23 17:00 06/22/23 17:16 Phenobarb/Hyoscy/Atropine/Scop 10 Ml Elixir PO 06/22/23 17:01 10 ml ONCE ONE Administration Famotidine 20 mg 06/22/23 17:00 06/22/23 17:15 Famotidine 20 Mg Tablet PO 06/22/23 17:01 20 mg ONCE ONE Administration Hydromorphone HCl 1 mg 06/22/23 13:35 06/22/23 14:09 Hydromorphone Hcl 1 Mg/Ml Syringe IM 06/22/23 13:36 1 mg ONCE ONE Administration Protocol Prednisone 60 mg 06/22/23 17:08 06/22/23 17:15 Prednisone 20 Mg Tablet PO 06/22/23 17:09 60 mg ONCE ONE Administration Medical Decision Making Medical Decision Making [facility] Narrative: 47-year-old female with history of DVT of upper upper and lower extremities, peripheral artery disease, Hodgkin's disease, rheumatoid arthritis, and lupus presents to the ED for bilateral lower extremity pain and also right hand swelling. Patient had MRI of left knee. Patient denies any new trauma. Due to history of DVTs patient was sent for bilateral lower extremity ultrasound. Very unlikely arterial occlusion due to patient's bilateral lower extremity normal temperature and positive DP and PT pulses. Case was discussed with Dr. Hughes who states ultrasound DVT is fine and states patient does not need any bilateral lower extremity arterial ultrasound. He states patient can be discharged. Although right lower extremity ultrasound was cancel Radiology certified bench jeweler technician performed arterial test. 4:59: Bilateral lower extremity ultrasound negative for DVT. Arterial ultrasound right lower extremity shows same SFA occlusion which was on angiogram of April of this year which Dr. Hughes is already aware of and he informed me patient could follow-up as outpatient. 5:53pm: x-ray of hand negative for any fracture or osteomyelitis. . Upper extremity swelling does not indicate cellulitis, necrotizing fasciitis, osteomyelitis, or DVT. patient does rheumatoid arthritis lupus flare. Patient will follow-up primary care provider and idea man. Patient will follow-up with vascular surgeon as recommended by Dr. Hughes Differential Diagnosis Differential Diagnoses: The differential diagnosis associated with the presentation includes ( DVT, anterior emboli, cellulitis, osteomyelitis, rheumatoid arthritis lupus flare-up, claudication) Admission/Observation Consideration of admission/observation: Escalation of care including admission/observation considered Consult Healthcare Provider Management of the patient was discussed with: Facility Practice Specialist (Dr. Hughes) Independent Interpretation I performed an independent interpretation of an: Plain X-Ray and Ultrasound Radiology Impression Discussion of test interpretation with radiology: I have reviewed the radiologist's reading. External Record Review External record reviewed: Other (Prior ED/Vascular notes) Prescription Management I considered prescription management with: Pain Medication ( continue taking pain medications you have a home.) Discharge Plan Discharge Clinical Impression: Chronic leg pain, Bilateral claudication of lower limb, Localized swelling of right upper extremity, Seropositive rheumatoid arthritis Patient Disposition: Home, Self-Care Instructions: Chronic Pain (ED), Rheumatoid Arthritis (ED), Peripheral Artery Disease (ED), Leg Pain (ED) Additional Instructions: bilateral lower extremities negative for DVT. Right upper extremity negative for DVT. Right upper extremity x-ray negative for fracture or osteomyelitis. Right lower extremity arterial ultrasound shows chronic SFA occlusion. recommend follow-up with vascular surgeon Dr. Hughes. Recommend continue taking your pain medication to have at home and also steroids. Return to the ED immediately for worsening swelling or pain of upper lower extremities, bluish black discoloration, hotness, coldness, redness, red streaks, stiffness, inability to move, fever, chills, chest pain, shortness of breath, or any other concerning symptoms. Also follow up with her primary care provider.extremidades inferiores bilaterales negativas para TVP. Extremidad superior derecha negativa para TVP. Radiograf?a de extremidad superior derecha negativa para fractura u osteomielitis. La ecograf?a arterial de la extremidad inferior derecha muestra moira oclusi?n cr?luis manuel de la AFS. Se recomienda seguimiento con el cirujano vascular Dr. Hughes. Recomiendo continuar tomando addie analg?sicos que tiene en casa y tambi?n esteroides. Regrese al servicio de urgencias inmediatamente si empeora la hinchaz?n o el dolor de las extremidades inferiores superiores, decoloraci?n elda azulada, calor, fr?o, enrojecimiento, kareem cerda, rigidez, incapacidad para moverse, fiebre, escalofr?os, dolor en el pecho, dificultad para respirar o cualquier otro s?ntoma preocupante. . Tambi?n lucio un seguimiento con kessler proveedor de atenci?n primaria. Prescriptions: No Action Incruse Ellipta 62.5 mcg/actuation blister with device 1 inh PO DAILY Qty: 30 6RF ascorbate calcium (vitamin C) 500 mg tablet 1 g PO DAILY 90 Days Qty: 180 2RF cholecalciferol (vitamin D3) [Vitamin D3] 25 mcg (1,000 unit) capsule 25 mcg PO QAM Qty: 90 2RF baricitinib 2 mg tablet 2 mg PO DAILY Qty: 30 2RF vitamin A palmitate 3,000 mcg (10,000 unit) tablet 10,000 unit PO DAILY Qty: 90 1RF gabapentin 400 mg capsule 400 mg PO TID ferrous sulfate [FeroSul] 325 mg (65 mg iron) tablet 1 tab PO QAM albuterol sulfate [ProAir HFA] 90 mcg/actuation HFA aerosol inhaler 2 puff PO Q4-6H PRN (Reason: Wheezing) nystatin 100,000 unit/gram powder 1 appl topical BID PRN (Reason: Rash) lidocaine [Lidoderm] 5 % adhesive patch,medicated 1 patch topical DAILY PRN (Reason: Pain) Rx Instructions: leave on most painful area for up to 12 hrs nicotine 21 mg/24 hr Patch 24 Hour 21 mg transdermal DAILY Qty: 30 0RF docusate sodium 100 mg capsule 100 mg PO BEDTIME PRN (Reason: Constipation) alprazolam 1 mg tablet 1 mg PO BEDTIME PRN (Reason: Anxiety) Eliquis 5 mg tablet 5 mg PO BID acetaminophen 500 mg tablet 500 - 1,000 mg PO Q8-10H PRN (Reason: pain) Qty: 100 4RF ibuprofen 600 mg tablet 600 mg PO Q8H PRN (Reason: mild pain) bupropion HCl 150 mg tablet sustained-release 12 hr PO sertraline 50 mg tablet 75 mg PO QAM folic acid 1 mg tablet 1 mg PO QAM fluticasone propionate 50 mcg/actuation spray,suspension 2 spray intranasal QAM benztropine 0.5 mg tablet 0.5 mg PO QAM pantoprazole 40 mg tablet,delayed release (DR/EC) 40 mg PO DAILY Qty: 90 1RF oxycodone-acetaminophen 5-325 mg tablet 1 tab PO Q8H PRN (Reason: severe pain) famotidine 20 mg tablet 20 mg PO BID risperidone 1 mg tablet PO cilostazol 50 mg tablet 50 mg PO prednisone 2.5 mg tablet See Rx Instructions .ROUTE .COMPLEX Qty: 90 3RF Rx Instructions: take two in mornings and one in evenings methotrexate sodium 2.5 mg tablet 20 mg PO QWEEK Qty: 96 1RF Interventions: ED Discharge Assessment Last Done: 06/22/23 18:39 Discharge Date/Time: 06/22/23 18:39 Print Language: Finnish
[2023-06-22] MEDS: HYDROmorphone HCl 1 MG/ML SYRINGE IM (14:09)
--- NOTE | 2023-06-22 14:12 | PC.NURSE ---
pt medicated for 10/10 pain with dilaudid. per PA, ok to give with morphine allergy.
[2023-06-22] MEDS: predniSONE 20 MG TABLET 60 MG PO (17:15)
[2023-06-22] MEDS: Famotidine 20 MG TABLET PO (17:15)
[2023-06-22] MEDS: Magnesium Hydrox/Alum Hydrox 30 ML ORAL.SUSP PO (17:16)
[2023-06-22] MEDS: PHENobarb/Hyoscy/Atropine/Scop 10 ML ELIXIR PO (17:16)
[2023-06-22 17:22] VITALS: BP 168/89; PULSE 71; RESP 18; TEMP 36.8; O2SAT 98
== END 2023-06-22 18:39 | disposition home or self-care (01) ==
PROVIDERS: Emergency Provider Emergency Medicine; PCP Emergency Medicine
DX: I70.213 Atherosclerosis of native arteries of extremities with intermittent claudication, bilateral legs (principal); M05.9 Rheumatoid arthritis with rheumatoid factor, unspecified; M79.662 Pain in left lower leg; G89.29 Other chronic pain; M32.9 Systemic lupus erythematosus, unspecified; C81.90 Hodgkin lymphoma, unspecified, unspecified site; M79.89 Other specified soft tissue disorders; M79.661 Pain in right lower leg; Z79.899 Other long term (current) drug therapy
CPT/HCPCS: 73110; 73130; 93926; 93970; 93971; 96372; 99284; J1170

== ENCOUNTER 2023-06-25 10:54 | Emergency (ER) | payer MEDICAID, SELFPAY ==
--- NOTE | ~2023-06-25 | XR_ITS ---
EXAMINATION: XR CHEST CLINICAL INFORMATION: Chest pain COMPARISON: None available. TECHNIQUE: 2 views of the chest were obtained. FINDINGS: No significant abnormality is noted involving the heart, lungs, mediastinum, bony thorax or soft tissues. XR/XR chest 2V IMPRESSION: Unremarkable chest examination.
--- NOTE | 2023-06-25 10:57 | ECG_ITS ---
Test Reason : CHEST PAIN Blood Pressure : / mmHG Vent. Rate : 075 BPM Atrial Rate : 075 BPM P-R Int : 164 ms QRS Dur : 106 ms QT Int : 380 ms P-R-T Axes : 067 -46 065 degrees QTc Int : 424 ms Normal sinus rhythm Left anterior fascicular block Intra-ventricular conduction delay Moderate voltage criteria for LVH, may be normal variant ( R in aVL , [place] product ) Abnormal ECG When compared with ECG of 20-APR-2023 09:54, No significant change was found Referred By: Generic ED Physician Electronically Signed By:GERMAINE JACKSON MD
[2023-06-25 11:15] VITALS: BP 154/69; PULSE 75; RESP 16; TEMP 37.5; O2SAT 98; BMI 32.6
--- NOTE | 2023-06-25 11:15 | ED_ITS ---
HPI - General Adult General Chief complaint: Chest Pain Stated complaint: body pain chest pain neck pain veins Time Seen by Provider: 06/25/23 12:23 Source: patient and RN notes reviewed Mode of arrival: ambulatory Limitations: no limitations History of Present Illness HPI narrative: This is a 47-year-old female, with a history of longstanding history of chronic pain syndrome, fibromyalgia, rheumatoid arthritis, SLE, Hodgkin's disease, DVT on Eliquis presenting to the emergency department with complaints of left chest sided chest pain with left-sided neck pain radiating down into her left axilla. She states that yesterday while she is watching television she developed left- sided chest pain radiating into her axilla and left arm. She states that she went to bed and woke up at 3:00 a.m. this morning with worsening pain. Pain worsens with palpation. Patient states that she has been sick with a productive cough for the last 3 months. Patient endorses subjective chills and sweats. She denies any shortness of breath. No palpitations, abdominal pain, nausea, vomiting, or diarrhea. No other complaints or concerns at this time. MD complaint: Chest pain Onset (ago): day(s) Radiation: extremity Severity: moderate Quality: burning, stabbing and aching Pain Consistency: constant Relieving factors: none Exacerbating factors: movement Associated symptoms: chest pain and cough Treatments prior to arrival: none Related Data Home Medications Medication Instructions Recorded Confirmed albuterol sulfate 90 mcg/actuation 2 puff PO Q4-6H PRN Wheezing 10/02/21 07/06/23 aerosol inhaler (ProAir HFA) ferrous sulfate 325 mg (65 mg 1 tab PO QAM 10/02/21 07/06/23 iron) tablet (FeroSul) gabapentin 400 mg capsule 400 mg PO TID 10/22/21 07/06/23 docusate sodium 100 mg capsule 100 mg PO BEDTIME PRN Constipation 04/19/22 07/06/23 apixaban 5 mg tablet (Eliquis) 5 mg PO BID 09/22/22 07/06/23 alprazolam 1 mg tablet 1 mg PO BEDTIME PRN Anxiety 12/10/22 07/06/23 benztropine 0.5 mg tablet 0.5 mg PO QAM 01/17/23 07/06/23 lidocaine 5 % topical patch 1 patch topical DAILY PRN Pain 04/20/23 07/06/23 (Lidoderm) cilostazol 50 mg tablet 50 mg PO 05/16/23 07/06/23 famotidine 20 mg tablet 20 mg PO BID 05/16/23 07/06/23 oxycodone-acetaminophen 5 mg-325 1 tab PO Q8H PRN severe pain 05/16/23 07/06/23 mg tablet risperidone 1 mg tablet mg PO 05/16/23 07/06/23 bupropion HCl 150 mg tablet,12 hr mg PO 06/09/23 07/06/23 sustained-release fluticasone propionate 50 2 spray intranasal QAM 06/09/23 07/06/23 mcg/actuation nasal spray,suspension folic acid 1 mg tablet 1 mg PO QAM 06/09/23 07/06/23 ibuprofen 600 mg tablet 600 mg PO Q8H PRN mild pain 06/09/23 07/06/23 Previous Rx's Medication Instructions Recorded acetaminophen 500 mg tablet 500 - 1,000 mg (1 - 2 x 500 mg) PO 09/22/22 Q8-10H PRN pain #100 tabs umeclidinium 62.5 mcg/actuation 1 inh PO DAILY #30 ea 11/29/22 blister powder for inhalation (Incruse Ellipta) ascorbate calcium (vitamin C) 500 1 g (2 x 500 mg) PO DAILY 90 days 12/21/22 mg tablet #180 tabs pantoprazole 40 mg tablet,delayed 40 mg PO DAILY #90 tabs 01/17/23 release cholecalciferol (vitamin D3) 25 25 mcg PO QAM #90 caps 02/28/23 mcg (1,000 unit) capsule (Vitamin D3) nicotine 21 mg/24 hr daily 21 mg transdermal DAILY #30 ea 04/21/23 transdermal patch methotrexate sodium 2.5 mg tablet 20 mg (8 x 2.5 mg) PO QWEEK #96 05/16/23 tabs prednisone 2.5 mg tablet See Rx Instructions .Route 05/16/23 .COMPLEX #90 tabs baricitinib 2 mg tablet 2 mg PO DAILY #30 tabs 06/09/23 vitamin A palmitate 3,000 mcg 10,000 unit PO DAILY #90 tabs 06/15/23 (10,000 unit) tablet Allergies Allergy/AdvReac Type Severity Reaction Status Date / Time almond [ALMONDS] Allergy Severe ANAPHYLAXIS Verified 07/06/23 11:14 adhesive tape [ADHESIVE TAPE] Allergy Intermediate RASH Verified 07/06/23 11:14 morphine [MORPHINE] Allergy Intermediate GI UPSET, Verified 07/06/23 11:14 difficulty breathing tramadol [TRAMADOL] AdvReac Unknown NAUSEA & Verified 07/06/23 11:14 VOMITING Review of Systems 2 Review of Systems: Yes all other systems are reviewed and are negative Constitutional: Constitutional: Reports as per [facility] Past Medical History Attestation statement: The following information was validated with the patient. Medical History Knee pain, left Seropositive rheumatoid arthritis Anxiety Achilles tendinitis Superficial femoral artery occlusion PAD (peripheral artery disease) Depression Hx of peripheral pulmonary artery stenosis History of chemotherapy Cancer of heart Bone cancer Lung cancer Bleeding hemorrhoid Degeneration, intervertebral disc, lumbar Chronic GERD Degeneration of intervertebral disc at C4-C5 level Osteoarthritis of spine with radiculopathy, lumbar region Fibromyalgia Esophageal dysphagia Vitamin D deficiency Systemic lupus erythematosus Seropositive rheumatoid arthritis Rheumatoid arthritis involving multiple sites Gallstones Stress incontinence in female Nocturia Urgency-frequency syndrome De Quervain's disease (tenosynovitis) Depressive disorder Acute arthritis Hodgkin disease Surgical History History of angioplasty of vein History of biopsy H/O tubal ligation Hx of endoscopy Hx laparoscopic cholecystectomy Hx of colonoscopy History of esophagogastroduodenoscopy (EGD) History of repair of inguinal hernia History of lymph node dissection of left axilla Family History Family History Maternal Grandmother Ovarian cancer Social History Social History Household Members: Spouse Housing: Apartment Are you a primary care management specialist to a significant other at home: No Do 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 have 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 or other home services: Yes (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 Physical Exam ED Vital Signs: Vital Signs - 24 hr 06/25/23 11:15 06/25/23 12:23 06/25/23 13:43 Temperature 99.5 F 98.9 F Pulse Rate 75 72 64 Respiratory Rate 16 18 16 Blood Pressure 154/69 H 146/61 H 143/80 H Pulse Oximetry 98 98 98 Oxygen Delivery Method Room Air Room Air Room Air 06/25/23 16:15 Temperature 98.3 F Pulse Rate 54 Respiratory Rate 20 Blood Pressure 136/78 Pulse Oximetry 97 Oxygen Delivery Method Room Air BMI result Body Mass Index 32.6 Const General: cooperative, comfortable and no acute distress Orientation/consciousness: patient oriented x3 Limitations: no limitations HENMT Head: Yes normal to inspection, Yes normocephalic and Yes atraumatic Ears: hearing grossly normal bilaterally General nose exam: Normal external nose present Face and sinus: Yes normal facial exam Mouth: Normal oral and palatal mucosa present, oropharynx normal and moist mucous membranes Throat: Yes posterior oropharynx normal Eyes General: appearance normal, both eyes and all related structures Eyelids: Yes eyelids normal Conjunctivae: conjunctivae normal Sclerae: sclerae normal Pupils: Equal, round and reactive pupils present EOM: EOMs intact bilaterally Neck Neck: Yes normal visual inspection, Yes full ROM and Yes no lymphadenopathy Lymphatic: no lymphadenopathy noted Chest Other: Tenderness palpation along the anterior wall. Chest palpation & inspection: normal inspection of the chest Resp Effort & Inspection: normal respiratory effort and able to speak in complete sentences Auscultation: clear to auscultation bilaterally, no crackles, no rales, no rhonchi and no wheezes Cardio Rate: regular rate Rhythm: regular rhythm Heart sounds: S1 normal heart sound present and S2 normal heart sound present GI Inspection: Yes normal to inspection Skin General skin exam: no rashes or lesions noted Trauma: no lacerations or abrasions Wounds: no wounds Neuro General: patient oriented x3 and moves all extremities Cranial nerves: Yes Equal, round and reactive pupils present Extrem General: Yes normal to inspection Right upper extremity: normal to inspection Left upper extremity: normal to inspection Right lower extremity: normal to inspection Left lower extremity: normal to inspection Course Course Course Narrative: RME:?47 year old female w/ pmhx seropositive RA, OA, lupus, fibromyalgia, PAD, HARINI, emphysema, hodgkin lymphoma, presents with severe chest pain onset 0400 this morning located to the L side of her chest w/ radiation into the left neck and left axilla. Constant since onset. Burning in sensation. Reports history of cancer around her heart years ago. Denies fever, chills, palpitations, SOB, LE swelling/ pain. Denies recent travel/ long car rides. PE: tearful in triage. RRR. Lungs CTA b/l. No chest wall TTP. Plan: labs, EKG, CXR Full HPI, ROS and PE to be performed by the primary ED provider. Reevaluation(s) Reevaluation #1: Cardiac workup today was negative and reassuring. Patient's symptoms likely musculoskeletal, will treat with her current at home pain medication. Patient medicated with Percocet prior to her departure. Advised to follow-up with primary care physician and program project analyst on Tuesday. Given return precautions. Patient understands agrees with plan. Patient stable for discharge. Time: 16:45 Medications Administered Discontinued Medications Generic Name Dose Route Start Last Admin Trade Name Freq PRN Reason Stop Dose Admin Acetaminophen 975 mg 06/25/23 13:16 06/25/23 13:25 Acetaminophen 325 Mg Tablet PO 06/25/23 13:17 975 mg ONCE ONE Administration Hydrocodone Bitart/Acetaminophen 1 tab 06/25/23 16:28 06/25/23 16:39 Hydrocodone Bit/Acetam 5/325 Tablet PO 06/25/23 16:29 1 tab ONCE ONE Administration Medical Decision Making Medical Decision Making [facility] Narrative: This is a 47-year-old female, with a history of longstanding history of chronic pain syndrome, fibromyalgia, rheumatoid arthritis, SLE, Hodgkin's disease, DVT on Eliquis presenting to the emergency department with complaints of left-sided neck pain radiating down into her left axilla. On arrival, vital signs within normal limits. Patient with tenderness palpation along the left inferior chest wall. Differential Diagnosis Differential Diagnoses: The differential diagnosis associated with the presentation includes Admission/Observation Consideration of admission/observation: Escalation of care including admission/observation considered Lab Data MDM Lab Attestation statement: I reviewed the patient's lab results. 06/25/23 11:31 06/25/23 11:31 Labs: Lab Results 06/25/23 06/25/23 Range/Units 11: 15:34 WBC 9.1 (4.8-10.8) X10*3/uL RBC 3.97 L (4.20-5.50) X10*6/uL Hgb 12.1 (12.0-16.0) g/dl Hct 37.0 (37.0-47.0) % MCV 93.2 (80.0-98.0) fL MCH 30.5 (27.0-33.0) pg MCHC 32.7 (31.0-35.0) g/dl RDW 14.3 (11.0-16.0) % Plt Count 319 (160-400) X10*3/uL MPV 9.8 (9.4-12.3) fL Immature Gran % (Auto) 0.2 (0.0-0.4) % Neut % (Auto) 73.8 H (45-73) % Lymph % (Auto) 20.0 (20-40) % Arthur % (Auto) 5.5 (2-11) % Eos % (Auto) 0.4 (0-4) % Baso % (Auto) 0.1 (0-2) % Lymph # (Auto) 1.8 (1.2-4.9) X10*3/uL Arthur # (Auto) 0.5 (0.1-1.2) X10*3/uL Eos # (Auto) 0.0 (0.0-0.4) X10*3/uL Baso # (Auto) 0.0 (0.0-0.2) X10*3/uL Abs Immat Gran (auto) 0.02 (0.00-0.03) X10*3/uL Absolute Neuts (auto) 6.7 (2.0-8.3) x10*3/uL Absolute Nucleated RBC 0.000 (0.0-0.012) X10*3/uL Nucleated RBC % (auto) 0.0 (0.0-0.2) /100WBC ESR 81 H (0-20) MM/HR PT 12.2 (11.1-13.3) SEC INR 1.0 (0.9-1.1) Sodium 139 (135-145) mmol/L Potassium 3.7 (3.3-5.1) mmol/L Chloride 105 (96-108) mmol/L Carbon Dioxide 23 (22-29) mmol/L Anion Gap 15 (12-20) BUN 15 (9-16) mg/dL Creatinine 0.80 (0.5-1.4) mg/dL Estim Creat Clear Calc 86.4 Estimated GFR > 60 Random Glucose 92 (60-115) mg/dL Calcium 9.9 D (8.4-10.2) mg/dL Magnesium 2.2 (1.6-2.6) mg/dL Troponin I High Sens 2.9 < 2.7 (<3.5-17.0) ng/L C-Reactive Protein 1.54 H (< or = 0.50) mg/dL Radiology Impression Discussion of test interpretation with radiology: I have reviewed the radiologist's reading. External Record Review External record reviewed: Inpatient record, Office record, Outpatient record, Prior outpatient labs, Prior outpatient radiology, Primary care record and Outside ED record Scores Heart Score History: -0- slightly suspicious ECG: -0- normal Age: -1- >45 - <65 Risk factory: -1- 1 or 2 risk factors Troponin: -0- < or = normal limit Score: 2 Risk: 1.7% Discharge Plan Discharge Clinical Impression: Chest pain, atypical Patient Disposition: Home, Self-Care Instructions: Chest Pain (ED), Chest Wall Pain (ED) Additional Instructions: Your workup today was reassuring. Your EKG, chest xray and labs were all normal today. Please continue taking all at-home medications. Follow-up with your primary care physician and program project analyst. If any new or worsening symptoms occur including but not limited to chest pain or shortness breath, please return for re-evaluation. Prescriptions: No Action Incruse Ellipta 62.5 mcg/actuation blister with device 1 inh PO DAILY Qty: 30 6RF ascorbate calcium (vitamin C) 500 mg tablet 1 g PO DAILY 90 Days Qty: 180 2RF cholecalciferol (vitamin D3) [Vitamin D3] 25 mcg (1,000 unit) capsule 25 mcg PO QAM Qty: 90 2RF baricitinib 2 mg tablet 2 mg PO DAILY Qty: 30 2RF vitamin A palmitate 3,000 mcg (10,000 unit) tablet 10,000 unit PO DAILY Qty: 90 1RF gabapentin 400 mg capsule 400 mg PO TID ferrous sulfate [FeroSul] 325 mg (65 mg iron) tablet 1 tab PO QAM albuterol sulfate [ProAir HFA] 90 mcg/actuation HFA aerosol inhaler 2 puff PO Q4-6H PRN (Reason: Wheezing) lidocaine [Lidoderm] 5 % adhesive patch,medicated 1 patch topical DAILY PRN (Reason: Pain) Rx Instructions: leave on most painful area for up to 12 hrs nicotine 21 mg/24 hr Patch 24 Hour 21 mg transdermal DAILY Qty: 30 0RF docusate sodium 100 mg capsule 100 mg PO BEDTIME PRN (Reason: Constipation) alprazolam 1 mg tablet 1 mg PO BEDTIME PRN (Reason: Anxiety) Eliquis 5 mg tablet 5 mg PO BID acetaminophen 500 mg tablet 500 - 1,000 mg PO Q8-10H PRN (Reason: pain) Qty: 100 4RF ibuprofen 600 mg tablet 600 mg PO Q8H PRN (Reason: mild pain) bupropion HCl 150 mg tablet sustained-release 12 hr PO folic acid 1 mg tablet 1 mg PO QAM fluticasone propionate 50 mcg/actuation spray,suspension 2 spray intranasal QAM benztropine 0.5 mg tablet 0.5 mg PO QAM pantoprazole 40 mg tablet,delayed release (DR/EC) 40 mg PO DAILY Qty: 90 1RF oxycodone-acetaminophen 5-325 mg tablet 1 tab PO Q8H PRN (Reason: severe pain) famotidine 20 mg tablet 20 mg PO BID risperidone 1 mg tablet PO cilostazol 50 mg tablet 50 mg PO prednisone 2.5 mg tablet See Rx Instructions .ROUTE .COMPLEX Qty: 90 3RF Rx Instructions: take two in mornings and one in evenings methotrexate sodium 2.5 mg tablet 20 mg PO QWEEK Qty: 96 1RF Interventions: ED Discharge Assessment Last Done: 06/25/23 16:56 Discharge Date/Time: 06/25/23 16:57
[2023-06-25 11:39] LABS: MANUAL DIFF FLAG NO
[2023-06-25 11:40] LABS: Basophils Percent Auto 0.1 % (0-2); Eosinophils Percent Auto 0.4 % (0-4); Hemoglobin 12.1 g/dl (12.0-16.0); Imm Gran Abs Auto 0.02 X10*3/uL (0.00-0.03); Imm Gran Pct Auto 0.2 % (0.0-0.4); Lymphocytes Absolute Auto 1.8 X10*3/uL (1.2-4.9); Mean Corpuscular HGB Conc 32.7 g/dl (31.0-35.0); Mean Corpuscular Hemoglobin 30.5 pg (27.0-33.0); Mean Corpuscular Volume 93.2 fL (80.0-98.0); Mean Platelet Volume 9.8 fL (9.4-12.3); Monocytes Absolute Auto 0.5 X10*3/uL (0.1-1.2); Monocytes Percent Auto 5.5 % (2-11); Neutrophils Absolute Auto 6.7 x10*3/uL (2.0-8.3); Neutrophils Percent Auto 73.8 % (45-73); Platelet Count 319 X10*3/uL (160-400); Red Blood Count 3.97 X10*6/uL (4.20-5.50); Red Cell Distribution Width 14.3 % (11.0-16.0); White Blood Count 9.1 X10*3/uL (4.8-10.8)
[2023-06-25 11:47] LABS: Prothrombin Time 12.2 SEC (11.1-13.3)
[2023-06-25 11:54] LABS: Anion Gap 15 (12-20); Blood Urea Nitrogen 15 mg/dL (9-16); C Reactive Protein 1.54 mg/dL (< or = 0.50); Calcium 9.9 mg/dL (8.4-10.2); Carbon Dioxide 23 mmol/L (22-29); Chloride 105 mmol/L (96-108); Creatinine Clr Calc Pharmacy 86.4; Estimated Glomerular Filt Rate > 60; Glucose Random 92 mg/dL (60-115); Magnesium 2.2 mg/dL (1.6-2.6); Potassium 3.7 mmol/L (3.3-5.1); Sodium 139 mmol/L (135-145)
[2023-06-25 12:01] LABS: Troponin-I High Sensitivity 2.9 ng/L (<3.5-17.0)
[2023-06-25 12:17] LABS: Erythrocyte Sedimentation Rate 81 MM/HR (0-20)
[2023-06-25 12:23] VITALS: BP 146/61; PULSE 72; RESP 18; TEMP 37.2; O2SAT 98
--- NOTE | 2023-06-25 12:28 | PC.NURSE ---
a&ox3, vss and up to date at this time. pt tearful/agitated/extremely anxious d/t pain. pt comes in today w/ left sided chest pain that radiates to LUE. pt states pain stated yesterday d/t no cause. denies n/v/dizziness/lightheadedness. pt verbalizes some dypsnea on exertion/chest pain on inspiration. lung sounds clear throughout. hx of arthritis. bedside for support. respirations remain even and slightly labored d/t anxiety. call cardona placed within reach.
[2023-06-25] MEDS: Acetaminophen 325 MG TABLET 975 MG PO (13:25)
--- NOTE | 2023-06-25 13:25 | PC.NURSE ---
medication administered per provider order.
[2023-06-25 13:43] VITALS: BP 143/80; PULSE 64; RESP 16; O2SAT 98
--- NOTE | 2023-06-25 14:37 | PC.NURSE ---
pain level unable to access at this time d/t pt sleeping post medication administration. pt seems to be resting in no apparent distress. respirations even and unlabored at this time. pt no longer tearful/agitated/in distress. bedside. call cardona placed within reach.
[2023-06-25 16:02] LABS: Troponin-I High Sensitivity < 2.7 ng/L (<3.5-17.0)
[2023-06-25 16:15] VITALS: BP 136/78; PULSE 54; RESP 20; TEMP 36.8; O2SAT 97
[2023-06-25] MEDS: HYDROcodone Bit/Acetam 5/325 TABLET 1 TAB PO (16:39)
== END 2023-06-25 16:57 | disposition home or self-care (01) ==
PROVIDERS: Physician Assistant Medical; Emergency Provider Emergency Medicine; PCP General Practice
DX: R07.89 Other chest pain (principal); I73.9 Peripheral vascular disease, unspecified; C81.90 Hodgkin lymphoma, unspecified, unspecified site; M32.9 Systemic lupus erythematosus, unspecified; F17.210 Nicotine dependence, cigarettes, uncomplicated; F12.90 Cannabis use, unspecified, uncomplicated; Z86.718 Personal history of other venous thrombosis and embolism; Z79.01 Long term (current) use of anticoagulants; Z79.899 Other long term (current) drug therapy
CPT/HCPCS: 36415; 71046; 80048; 83735; 84484; 85025; 85610; 85652; 86140; 93005; 99283; 99285

== ENCOUNTER 2023-06-28 15:21 | Outpatient (REF) | payer MEDICAID, SELFPAY ==
--- NOTE | ~2023-06-28 | US_ITS ---
EXAMINATION: US VENOUS ULTRASOUND WITH DOPPLER LOWER EXTREMITY, RIGHT CLINICAL INFORMATION: Right leg swelling; question deep venous thrombosis. COMPARISON: Prior venous ultrasound examinations, most recently 06/20/2023. TECHNIQUE: Ultrasound of the deep veins is performed from the hip to the calf with compression sonography and color and pulse Doppler assessment. Spectral analysis with color-flow imaging is performed. FINDINGS: There is normal venous compression and respiratory variation and augmented flow. The visualized common femoral vein, superficial femoral vein, profunda femoral vein, popliteal vein, and the trifurcation region shows no evidence of deep venous thrombosis. There is no significant popliteal fossa cyst. Within the medial ankle, there is a cylindrical anechoic fluid collection again seen in the vicinity of the posterior tibialis tendon. If the patient's symptoms persist, followup ultrasound in 5 days 7 days might be of value to exclude proximal propagation from a non-visualized calf vein. US/US venous duplex LE RT IMPRESSION: 1. No right lower extremity venous thrombosis is seen. 2. There is persistent anechoic fluid seen in the medial distal calf in the vicinity of the posterior tibialis tendon.
== END 2023-06-28 15:22 | disposition home or self-care (01) ==
LOC: HO.US 15:21
PROVIDERS: Visit Provider Internal Medicine Geriatric Medicine
DX: M79.89 Other specified soft tissue disorders (principal); Z86.718 Personal history of other venous thrombosis and embolism
CPT/HCPCS: 93971

== ENCOUNTER 2023-07-06 09:43 | Outpatient (AMB) | payer MEDICAID, SELFPAY ==
--- NOTE | 2023-07-06 09:45 | MHC.OFFVIS ---
Intake Vital Signs 07/06/23 09:46 Height 5 ft 2 in Weight 178 lb BMI 32.6 Intake Visit Reasons: ov- review Left knee MRI Intake Note: Ginette a 47 year old female who presents today with complaints of progressively worsening left knee pain and giving way. Patient states that she injured her left knee several years ago. She twisted her knee and had acute onset of pain. Since that time her symptoms have gotten worse in spite of continued non operative treatments. She does walk with a walker. She states that her left knee will give out several times per day. She has tried Tylenol and anti-inflammatory medicines which gave her minimal relief. She has also done physical therapy which aggravated her pain. She has had injections in the past which gave her only mild relief. Allergies almond [ALMONDS] Allergy (Severe, Verified 07/06/23 09:55) ANAPHYLAXIS adhesive tape [ADHESIVE TAPE] Allergy (Intermediate, Verified 07/06/23 09:55) RASH morphine [MORPHINE] Allergy (Intermediate, Verified 07/06/23 09:55) GI UPSET, difficulty breathing tramadol [TRAMADOL] Adverse Reaction (Unknown, Verified 07/06/23 09:55) NAUSEA & VOMITING Medication List - Last Reconciled 07/06/23 by Segundo Drew MD acetaminophen 500 - 1,000 mg (1 - 2 x 500 mg) PO Q8-10H PRN albuterol sulfate 90 mcg/actuation (ProAir HFA) 2 puffs PO Q4-6H PRN alprazolam 1 mg PO BEDTIME PRN apixaban (Eliquis) 5 mg PO BID ascorbate calcium (vitamin C) 1 g (2 x 500 mg) PO DAILY 90 days baricitinib 2 mg PO DAILY benztropine 0.5 mg PO QAM bupropion HCl mg PO cholecalciferol (vitamin D3) (Vitamin D3) 25 mcg PO QAM cilostazol 50 mg PO docusate sodium 100 mg PO BEDTIME PRN famotidine 20 mg PO BID ferrous sulfate (FeroSul) 1 tab PO QAM fluticasone propionate 50 mcg/actuation 2 sprays intranasal QAM folic acid 1 mg PO QAM gabapentin 400 mg PO TID ibuprofen 600 mg PO Q8H PRN lidocaine 5% (Lidoderm) 1 patch topical DAILY PRN methotrexate sodium 20 mg (8 x 2.5 mg) PO QWEEK nicotine 21 mg transdermal DAILY nystatin 1 appl topical BID PRN oxycodone-acetaminophen 5-325 mg 1 tab PO Q8H PRN pantoprazole 40 mg PO DAILY prednisone take two in mornings and one in evenings risperidone mg PO sertraline 75 mg PO QAM umeclidinium 62.5 mcg/actuation (Incruse Ellipta) 1 inh PO DAILY vitamin A palmitate 10,000 units PO DAILY PFSH Medical History (Updated 07/06/23 @ 10:30 by Segundo Drew MD) Knee pain, left Seropositive rheumatoid arthritis Anxiety Achilles tendinitis Superficial femoral artery occlusion PAD (peripheral artery disease) Depression Hx of peripheral pulmonary artery stenosis History of chemotherapy Cancer of heart Bone cancer Lung cancer Bleeding hemorrhoid Degeneration, intervertebral disc, lumbar Chronic GERD Degeneration of intervertebral disc at C4-C5 level Osteoarthritis of spine with radiculopathy, lumbar region Fibromyalgia Esophageal dysphagia Vitamin D deficiency Systemic lupus erythematosus Seropositive rheumatoid arthritis Rheumatoid arthritis involving multiple sites Gallstones Stress incontinence in female Nocturia Urgency-frequency syndrome De Quervain's disease (tenosynovitis) Depressive disorder Acute arthritis Hodgkin disease Surgical History History of angioplasty of vein History of biopsy H/O tubal ligation Hx of endoscopy Hx laparoscopic cholecystectomy Hx of colonoscopy History of esophagogastroduodenoscopy (EGD) History of repair of inguinal hernia History of lymph node dissection of left axilla Family History Maternal Grandmother Ovarian cancer Social History Household Members: Spouse Housing: Apartment Are you a primary care transitions manager to a significant other at home: No Do 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 have 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 or 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) Alcohol intake: never Comment: lozenge given [id number] Patient Tobacco Use Status: Current everyday Tobacco user Tobacco use type: Cigarette Cigarette Packs Per Day: 1 Substance Use Type: Marijuana Advance Directives Date on File: 09/23/20 service: No Current occupational status: disabled 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 Physical Exam Vital Signs: BMI result Body Mass Index 32.6 Const Other: Well-nourished well-developed very friendly female awake alert and oriented x3 in no acute distress Extrem Other: Bilateral lower extremity examination shows good capillary refill, no skin lesions noted, normal sensation light touch Left knee examination shows a minimal effusion, minimal crepitus with range of motion, tenderness along her medial and lateral joint lines, positive Ottoniel's test, no instability Results Reviewed Results Reviewed: MRI of the patient's left knee shows mild diffuse degenerative changes, tearing of the medial meniscus, possible tearing of the lateral meniscus Assessment & Plan Assessment & Plan (1) Knee pain, left: Code(s): M25.562 - Pain in left knee Plan Ms. Ovidio Lacy presents with progressively worsening left knee pain and mechanical symptoms due to a tear of the medial meniscus and possible tearing of the lateral meniscus. I had a lengthy discussion with the patient regarding the treatment options. At this point she has failed continued non operative treatments. The risks and benefits of left knee arthroscopic surgery were discussed at length with the patient. The patient wishes to proceed with surgery. She does understand that she may not get 100% relief of her symptoms depending on the severity of her degenerative changes. She will contact my office to pick a surgery date. She will follow-up as instructed. Feel free to call me at any time should questions regarding her orthopedic management arise. I spent 22 minutes in reviewing the patient's records and imaging studies, seeing the patient and documenting in the medical record. Coding Level of Care Code Est Pt Level 2 (26083) Diagnoses Knee pain, left M25.562
[2023-07-06 09:46] VITALS: BMI 32.6
== END 2023-07-06 10:23 | disposition home or self-care (01) ==
PROVIDERS: PCP General Practice; Visit Provider Orthopaedic Surgery
DX: M25.562 Pain in left knee (principal)
CPT/HCPCS: 99214

== ENCOUNTER → 2023-07-06 09:43 | Outpatient (BNVA) | payer MEDICAID, SELFPAY | PROVIDERS: PCP General Practice; Visit Provider Orthopaedic Surgery | DX: M05.9 Rheumatoid arthritis with rheumatoid factor, unspecified (principal); M79.7 Fibromyalgia; M25.562 Pain in left knee; Z79.899 Other long term (current) drug therapy | CPT/HCPCS: 20605; 99212 ==

== ENCOUNTER 2023-07-06 09:44 | Outpatient (AMB) | payer MEDICAID, SELFPAY ==
[2023-07-06 11:11] VITALS: BP 98/72; PULSE 68; RESP 16; TEMP 36.8; O2SAT 95; BMI 36.6
--- NOTE | 2023-07-06 11:11 | A.OFFVIS_ITS ---
Intake Vital Signs 07/06/23 11:11 Height 5 ft 2 in Weight 199 lb 15.348 oz BMI 36.6 BP 98/72 Blood Pressure Location Lt brachial Position Sitting Respiration 16 Pulse 68 Pulse Source Pulse Oximeter Temp 98.2 F Temp Source Tympanic Pulse Oximetry (%) 95 Oxygen Delivery Method Room Air Intake Visit Reasons: ra System Controller Required: Yes Accompanied by: Son Allergies almond [ALMONDS] Allergy (Severe, Verified 07/06/23 11:14) ANAPHYLAXIS adhesive tape [ADHESIVE TAPE] Allergy (Intermediate, Verified 07/06/23 11:14) RASH morphine [MORPHINE] Allergy (Intermediate, Verified 07/06/23 11:14) GI UPSET, difficulty breathing tramadol [TRAMADOL] Adverse Reaction (Unknown, Verified 07/06/23 11:14) NAUSEA & VOMITING Medication List - Last Reconciled 07/06/23 by Marcelle Harrington, RN acetaminophen 500 - 1,000 mg (1 - 2 x 500 mg) PO Q8-10H PRN albuterol sulfate 90 mcg/actuation (ProAir HFA) 2 puffs PO Q4-6H PRN alprazolam 1 mg PO BEDTIME PRN apixaban (Eliquis) 5 mg PO BID ascorbate calcium (vitamin C) 1 g (2 x 500 mg) PO DAILY 90 days baricitinib 2 mg PO DAILY benztropine 0.5 mg PO QAM bupropion HCl mg PO cholecalciferol (vitamin D3) (Vitamin D3) 25 mcg PO QAM cilostazol 50 mg PO docusate sodium 100 mg PO BEDTIME PRN famotidine 20 mg PO BID ferrous sulfate (FeroSul) 1 tab PO QAM fluticasone propionate 50 mcg/actuation 2 sprays intranasal QAM folic acid 1 mg PO QAM gabapentin 400 mg PO TID ibuprofen 600 mg PO Q8H PRN lidocaine 5% (Lidoderm) 1 patch topical DAILY PRN methotrexate sodium 20 mg (8 x 2.5 mg) PO QWEEK nicotine 21 mg transdermal DAILY oxycodone-acetaminophen 5-325 mg 1 tab PO Q8H PRN pantoprazole 40 mg PO DAILY prednisone take two in mornings and one in evenings risperidone mg PO umeclidinium 62.5 mcg/actuation (Incruse Ellipta) 1 inh PO DAILY vitamin A palmitate 10,000 units PO DAILY HPI HPI Comments History of Present Illness Details The patient with RA returns today with complaints of pain in the right wrist. Her son accompanies her today and translates for us. She had called us earlier in the week with a flare-up of symptoms in the elbow, wrist and shoulder on the right. At her last visit a month ago I had prescribed baricitinib but for some reason she has yet to receive it. She tells me now the delivery is for tomorrow or the next day. She remains on ibuprofen 800 b.i.d., acetaminophen 1 or 2 b.i.d., methotrexate 20 mg weekly, folic acid 1 mg daily, gabapentin 400 mg t.i.d. and Percocet prescribed by her primary doctor t.i.d. When she had called earlier this week we had her increase her prednisone up to 10 b.i.d. from 5 mg b.i.d. The other joints that hurt her today include the right hand, both knees - left greater than right, and right ankle.She has an orth0 visit latrer today to discuss the left knee. [facility] Medical History Knee pain, left Seropositive rheumatoid arthritis Anxiety Achilles tendinitis Superficial femoral artery occlusion PAD (peripheral artery disease) Depression Hx of peripheral pulmonary artery stenosis History of chemotherapy Cancer of heart Bone cancer Lung cancer Bleeding hemorrhoid Degeneration, intervertebral disc, lumbar Chronic GERD Degeneration of intervertebral disc at C4-C5 level Osteoarthritis of spine with radiculopathy, lumbar region Fibromyalgia Esophageal dysphagia Vitamin D deficiency Systemic lupus erythematosus Seropositive rheumatoid arthritis Rheumatoid arthritis involving multiple sites Gallstones Stress incontinence in female Nocturia Urgency-frequency syndrome De Quervain's disease (tenosynovitis) Depressive disorder Acute arthritis Hodgkin disease Surgical History History of angioplasty of vein History of biopsy H/O tubal ligation Hx of endoscopy Hx laparoscopic cholecystectomy Hx of colonoscopy History of esophagogastroduodenoscopy (EGD) History of repair of inguinal hernia History of lymph node dissection of left axilla Family History Maternal Grandmother Ovarian cancer Social History Household Members: Spouse Housing: Apartment Are you a primary pet care associate to a significant other at home: No Do 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 have 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) Alcohol intake: never Comment: lozenge given 1792 Patient Tobacco Use Status: Current everyday Tobacco user Tobacco use type: Cigarette Cigarette Packs Per Day: 1 Substance Use Type: Marijuana Advance Directives Date on File: 09/23/20 service: No Current occupational status: disabled 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 Endo Details: Negative for polyuria and polydypsia Ki/Lymph Details: Negative for excessive bruising or bleeding. Physical Exam Vital Signs: Last Vital Signs Temp 98.2 F 07/06/23 11:11 Pulse 68 07/06/23 11:11 Resp 16 07/06/23 11:11 BP 98/72 07/06/23 11:11 Pulse Ox 95 07/06/23 11:11 Oxygen Delivery Method Room Air 07/06/23 11:11 BMI result Body Mass Index 36.6 APPEARANCE: Patient in no acute distress EXTREMITIES: No edema, no calf tenderness, normal peripheral pulses. JOINT EXAM: ?? SKIN: Nontender, Rheumatoid nodules are evident over the elbows, pinna of the ears and the hands. No other inflammatory or neoplastic lesions. EARS:? External ears on both sides have some tiny nodules over the helix of the ear.? These are not tender today tender.? They have no drainage evident. Her auditory canals are clear and tympanic membrane normal JOINT EXAM: Cervical Spine:.? Mild pain with extremes of motion.? Mild cervical muscle tenderness. Thoracic Spine:.? No scoliosis.? No tenderness on palpation. Lumbar Spine:.? Alignment normal.? Full range of motion with pain at the extremes.? Mild paraspinal muscle tenderness. Chest Wall:.? No tenderness, swelling, increased warmth or erythema Hands:. right:? There slight swelling at the 1st 3 MCP joints.? Today there [id number] tenderness over the 1st 3 MCP joints. There is also slight thickening and slight tenderness over the 2nd and 3rd PIP joints. She has mild tenderness over the flexor tendons in 2nd and 3rd fingers.? She may have some slight sensory loss.? There are some nontender rheumatoid nodules evident.? Her hand does seem to be warm and well perfused. ? There is no objective sign of Raynaud's phenomenon.?? Left:? There is? mild swelling and moderate tenderness of the 2nd through 4th MCP joints.? There is similar mild thickening and mild tenderness at the 2nd through 5th PIP joints. Wrists: ? Right:? Mild swelling and moderate tenderness. There is pain with more than 30 degrees flexion or extension. Left:? There is mild pain with 45 degrees of flexion or extension with mild tenderness but no swelling, redness or warmth. Elbows:?Right:? there are nodules felt over the ulnar area and in the olecranon region bilaterally.?These are slightly tender.? There are no breaks in the skin and no drainage.? There is mild pain with more than 45 degrees flexion extension at the elbow. There is tenderness over the joint space without redness or swelling. ? Left:? She has normal pain-free range of motion without tenderness, swelling, increased warmth or erythema in the left elbow joint.? There is 2 small nodules that are slightly tender with no evidence of dry discharge. Shoulders: ? Right:? There is mild to moderate pain with abduction at 120 degrees or with more than 10 degrees of internal or external rotation.? There is mild anterior and posterior tenderness.? There is no axillary or supraclavicular adenopathy.? There is no abductor weakness.? Left:?? Full range of motion with? Slight discomfort at the extremes.? There is no tenderness without swelling, adenopathy, increased warmth or erythema. Hips:? Full range of motion with some lower back pain with extremes of internal and external rotation.? No groin pain with motion. Hip bursa:? ? Mild trochanteric tenderness on the right. ? Knees: ? Right:? From there is mild patellofemoral crepitus and mild pain with the extremes of flexion or extension.? Mild medial tenderness and mild patellofemoral crepitus.? No redness or effusion. ? Left: Mild patellofemoral crepitus and moderate pain with more from 45 degrees flexion or extension.? Slight medial tenderness without redness or effusion. Ankles:? Right: There is mild to moderate pain with range of motion the ankle. There is mild medial and lateral tenderness with some slight swelling but no redness or warmth. There is aqep-wd-eohmpbbr tenderness and thickening over the Achilles tendon. Left: Normal pain-free range of motion with mild tenderness but no swelling, increased warmth or erythema. Feet:? Right:? There is mild to moderate tenderness at the 1st 2 MTP joints.? There is also mild tenderness in the distal instep.? Left:? Slight tenderness at the 1st 2 MTP joints and in the instep.? No redness or warmth.? Tender points:? mild tenderness to digital palpation at the occiput, trapezius, second rib, lateral epicondyle, knees, greater trochanter and gluteal area bilaterally Office Procedures Joint Injection/Drain Joint Injection/Drain Injected: 40 mg of, with 0.5 mL of and 1% plain lidocaine Coding Details: With the patient's consent the right wrist was prepped with ChloraPrep and alcohol. The skin was anesthetized with 1 cc of 1% lidocaine. The right wrist was then injected with 40 mg of triamcinolone and 0.5 cc of I % lidocaine. The patient tolerated the procedure with no immediate adverse effects. 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 regularly requiring prednisone. methotrexate and hydroxychloroquine ?2019 Xeljanz 05/2020-08/2020(ineffective) 2020 methotrexate and Humira(HCQ stopped - ?vision changes). 06/2022 Humira stopped due to poor repsonse 06/2022 methotrexate and Actemra 12/2022: Actemra stopped by the patient. She had some leg swelling as well. 03/10/2023 and 03/24/23: 1 g on each day rituximab administered Code(s): M05.9 - Rheumatoid arthritis with rheumatoid factor, unspecified Plan The patient again demonstrates polyarticular, ongoing synovitis in multiple joints consistent with her active seropositive rheumatoid arthritis. Unfortunately she has yet to obtain the next medication that we had proposed last month. She believes she is going to receive it soon. In the meantime she seems to be tolerating methotrexate without any apparent side effects. Acute inflammatory markers remain elevated as one would expect with active disease. To make her more comfortable I had suggested the right wrist corticosteroid injection. She had a similar injection back in November that was helpful. We reviewed potential side effects of such injections. With the patient's consent the right wrist was prepped with ChloraPrep and alcohol. The skin was anesthetized with 1 cc of 1% lidocaine. The right wrist was then injected with 40 mg of triamcinolone and 0.5 cc of I % lidocaine. The patient tolerated the procedure with no immediate adverse effects. She will continue with the methotrexate and the prednisone at 5 mg b.i.d.; if need be she could increase it to 10 b.i.d. until the effects of the baricitinib become apparent. She and her son bring up the question of the relationship between thromboses and baricitinib. I had discussed this previously with her that there was possibly an increased risk of thrombosis with that medication. She has already had a DVT and remains on chronic anticoagulant therapy with Eliquis. I therefore think that the risk probably is not increased if someone is already anticoagulated. In any case the patient has tried multiple medications for the RA with not much improvement in her synovitis. This has required her ongoing prednisone doses to be relatively high for RA so I think there is certainly risk of prednisone related side effects unless we can get a more effective treatment of her rheumatoid arthritis. They seem understand that the choices have been narrowed by the lack of response to previous medications and are willing to take the risk of taking the baricitinib. The We will schedule a follow-up at about 6 weeks. Hopefully by then she will have received and been on the baricitinib for a while. 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
== END 2023-07-06 11:58 | disposition home or self-care (01) ==
PROVIDERS: PCP Emergency Medicine; Visit Provider Internal Medicine Rheumatology
DX: M05.79 Rheumatoid arthritis with rheumatoid factor of multiple sites without organ or systems involvement (principal); M79.7 Fibromyalgia; Z79.631 Long term (current) use of antimetabolite agent
CPT/HCPCS: 20605; 99213

== ENCOUNTER 2023-07-12 05:50 | Emergency (ER) | payer MEDICAID, SELFPAY ==
[2023-07-12 05:57] VITALS: BP 141/77; PULSE 87; RESP 20; TEMP 36.7; O2SAT 98; BMI 34.6
[2023-07-12 06:26] LABS: Hematocrit 35.7 % (37.0-47.0); Hemoglobin 11.3 g/dl (12.0-16.0); Mean Corpuscular HGB Conc 31.7 g/dl (31.0-35.0); Mean Corpuscular Volume 94.7 fL (80.0-98.0); Mean Platelet Volume 9.8 fL (9.4-12.3); Platelet Count 294 X10*3/uL (160-400); Red Blood Count 3.77 X10*6/uL (4.20-5.50); Red Cell Distribution Width 13.7 % (11.0-16.0); White Blood Count 5.9 X10*3/uL (4.8-10.8)
--- OUTSIDE RECORDS SUMMARY | 2023-07-12 06:32 | XMS_ITS | Continuity of Care Document ---
Author Name Unknown Organization [facility] [employer] Address [address], [address] [place] [address]- Care Team Providers Care Information Technology Director Name Role Phone Ebony Daigle MD Primary Care Physician Encounter [facility] R [id number] Date(s): 01/15/22 - 03/11/22 [facility] [address], [address] [place] [address]- Attending Physician: Arminda Schaeffer MD Admitting Physician: Arminda Schaeffer MD Referring Physician: Ebony Daigle MD Allergies, Adverse Reactions, Alerts No Known Allergies Medications acetaminophen 500 mg oral tablet 2 tablet = 1,000 mg, By Mouth, 3 times a day, PRN Pain , Severe, 0 Refills, Maintenance Start Date: 03/30/11 Status: Ordered Flexeril 10 mg oral tablet 1 tablet = 10 mg, By Mouth, 3 times a day, PRN Pain , Moderate, # 12 tablet, 0 Refills Start Date: 01/06/09 Stop Date: 01/10/09 Status: Ordered Fosamax 70 mg oral tablet 1 tablet = 70 mg, By Mouth, Every week, # 12 tablet, 0 Refills, Maintenance, Tablet Start Date: 11/16/11 Status: Ordered gabapentin 100 mg oral capsule 100 mg, 1, capsule, By Mouth, 3 times a day, PRN, # 30 capsule, Refills 0, Tot. Refills 0, Maintenance, Pain , Mild, 04/28/19 15:18:15 EDT, Print Requisition Start Date: 04/28/19 Stop Date: 05/12/19 Status: Ordered ibuprofen 600 mg oral tablet 1 tablet = 600 mg, By Mouth, 3 times a day, # 15 tablet, 0 Refills, Maintenance Start Date: 12/21/10 Stop Date: 12/26/10 Status: Ordered Klonopin 0.5 mg oral tablet 1.5 tablet = 0.75 mg, By Mouth, Daily at bedtime, PRN Anxiety, 0 Refills, Maintenance Start Date: 03/30/11 Status: Ordered sertraline 100 mg oral tablet 1 tablet = 100 mg, By Mouth, Daily, 0 Refills, Maintenance Start Date: 03/30/11 Status: Ordered
--- OUTSIDE RECORDS SUMMARY | 2023-07-12 06:32 | XMS_ITS | Continuity of Care Document ---
Author Name Unknown Organization [facility] Address [address] [place] [address]- Care Team Providers Care Feed Mill Tender Name Role Phone Oxana VITALE, Ebony Bhakta Primary [facility] Phys[id number] 11/23/21 - 01/14/[facility] [place] [address] [place] [address]- Attending Physician: Debra Robertson MD Admitting Physician: Debra Robertson MD Referring Physician: Ebony Daigle MD Allergies, [...]
--- OUTSIDE RECORDS SUMMARY | 2023-07-12 06:32 | XMS_ITS | Continuity of Care Document ---
Author Name Unknown Organization [facility] [employer] [facility] Address [address], [address] [place] [address]- Care Team Providers Care Prepress Manager Name Role Phone Oxana VITALE, Ebony Bhakta Primary [facility] Physician [id number] Date(s): 02/09/22 - 03/11/22 [facility] [place] [facility] [facility] [address] [place] [address]- Attending Physician: Cameron Carcamo Admitting Physician: Cameron Carcamo Referring Physician: Cameron Carcamo Allergies, Adverse Reactions, Alerts No Known Allergies [...]
--- OUTSIDE RECORDS SUMMARY | 2023-07-12 06:32 | XMS_ITS | Continuity of Care Document ---
Author Name Unknown Organization [facility] [employer] [employer] [facility] Address [address], [address] [place] [address]- Care Team Providers Care Gas Well Drilling Manager Name Role Phone Ebony Daigle MD Primary Care Physician [id number] Date(s): 12/18/21 - 02/14/22 [facility] [place] [address] [place] [address]- Attending Physician: Arminda Schaeffer MD Admitting Physician: [...]
[2023-07-12 06:41] LABS: Alanine Aminotransferase 11 U/L (0-31); Albumin Level 3.9 g/dL (3.5-5.0); Alkaline Phosphatase 77 U/L (39-117); Anion Gap 13 (12-20); Aspartate Amino Transferase 15 U/L (5-31); Bilirubin Total 0.2 mg/dL (0.0-1.0); Blood Urea Nitrogen 12 mg/dL (9-16); Calcium 9.6 mg/dL (8.4-10.2); Carbon Dioxide 24 mmol/L (22-29); Chloride 106 mmol/L (96-108); Creatinine Clr Calc Pharmacy 95.2; Estimated Glomerular Filt Rate > 60; Glucose Random 96 mg/dL (60-115); Potassium 3.7 mmol/L (3.3-5.1); Sodium 139 mmol/L (135-145)
--- NOTE | 2023-07-12 06:53 | ED_ITS ---
HPI - General Adult General Chief complaint: General Medical Stated complaint: Arm pain/ Leg pain Time Seen by Provider: 07/12/23 06:52 Source: patient Mode of arrival: ambulatory Limitations: language barrier (Patient's 1st language is Ecuadorean, she speaks some [place], accounts payable assistant was used) History of Present Illness HPI narrative: 47-year-old female with rheumatoid arthritis, SLE, anxiety, peripheral arterial disease, depression, GERD, degenerative disc disease, fibromyalgia, Hodgkin's disease (2004) who presents emergency department for evaluation of multiple joint pains including pain left hand, wrist and shoulder, bilateral knees with the left knee being worse than the right stiffness of her lower extremity subjective fever, chills, chest pain, shortness of breath and nausea. Patient states that the symptoms have been worse over the past 3 days but she has had similar symptoms over the last month and has been seen in the emergency department multiple times with similar complaints with negative workups. 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 She states that her boot and shoe laborer try to new drug that did not help with her pain. She states that her pain is 10/10 and she is having difficulty walking therefore she came to emergency department for evaluation. The patient was seen in the emergency department frequently with 16 visits this year. Her last ED visits below reviewed by me. 06/25/2023: Left-sided chest pain with negative workup 06/22/2023: upper and lower extremity pain negative duplex lower extremities , lower extremity arterial ultrasound chronic right lower extremity SFA occlusion 06/03/2023: Chest pain and bilateral lower extremity pain 07/06/2023: Rheumatology office note discussed treatment with baricitinib and patient lying joint inflammation Related Data Home Medications Medication Instructions Recorded Confirmed albuterol sulfate 90 mcg/actuation 2 puff PO Q4-6H PRN Wheezing 10/02/21 07/06/23 aerosol inhaler (ProAir HFA) ferrous sulfate 325 mg (65 mg 1 tab PO QAM 10/02/21 07/06/23 iron) tablet (FeroSul) gabapentin 400 mg capsule 400 mg PO TID 10/22/21 07/06/23 docusate sodium 100 mg capsule 100 mg PO BEDTIME PRN Constipation 04/19/22 07/06/23 apixaban 5 mg tablet (Eliquis) 5 mg PO BID 09/22/22 07/06/23 alprazolam 1 mg tablet 1 mg PO BEDTIME PRN Anxiety 12/10/22 07/06/23 benztropine 0.5 mg tablet 0.5 mg PO QAM 01/17/23 07/06/23 lidocaine 5 % topical patch 1 patch topical DAILY PRN Pain 04/20/23 07/06/23 (Lidoderm) cilostazol 50 mg tablet 50 mg PO 05/16/23 07/06/23 famotidine 20 mg tablet 20 mg PO BID 05/16/23 07/06/23 oxycodone-acetaminophen 5 mg-325 1 tab PO Q8H PRN severe pain 05/16/23 07/06/23 mg tablet risperidone 1 mg tablet mg PO 05/16/23 07/06/23 bupropion HCl 150 mg tablet,12 hr mg PO 06/09/23 07/06/23 sustained-release fluticasone propionate 50 2 spray intranasal QAM 06/09/23 07/06/23 mcg/actuation nasal spray,suspension folic acid 1 mg tablet 1 mg PO QAM 06/09/23 07/06/23 ibuprofen 600 mg tablet 600 mg PO Q8H PRN mild pain 06/09/23 07/06/23 Previous Rx's Medication Instructions Recorded acetaminophen 500 mg tablet 500 - 1,000 mg (1 - 2 x 500 mg) PO 09/22/22 Q8-10H PRN pain #100 tabs umeclidinium 62.5 mcg/actuation 1 inh PO DAILY #30 ea 11/29/22 blister powder for inhalation (Incruse Ellipta) ascorbate calcium (vitamin C) 500 1 g (2 x 500 mg) PO DAILY 90 days 12/21/22 mg tablet #180 tabs pantoprazole 40 mg tablet,delayed 40 mg PO DAILY #90 tabs 01/17/23 release cholecalciferol (vitamin D3) 25 25 mcg PO QAM #90 caps 02/28/23 mcg (1,000 unit) capsule (Vitamin D3) nicotine 21 mg/24 hr daily 21 mg transdermal DAILY #30 ea 04/21/23 transdermal patch methotrexate sodium 2.5 mg tablet 20 mg (8 x 2.5 mg) PO QWEEK #96 05/16/23 tabs prednisone 2.5 mg tablet See Rx Instructions .Route 05/16/23 .COMPLEX #90 tabs baricitinib 2 mg tablet 2 mg PO DAILY #30 tabs 06/09/23 vitamin A palmitate 3,000 mcg 10,000 unit PO DAILY #90 tabs 06/15/23 (10,000 unit) tablet prednisone 10 mg tablet 10 mg PO DIRECTED #32 tabs 07/12/23 Allergies Allergy/AdvReac Type Severity Reaction Status Date / Time almond [ALMONDS] Allergy Severe ANAPHYLAXIS Verified 07/06/23 11:14 adhesive tape [ADHESIVE TAPE] Allergy Intermediate RASH Verified 07/06/23 11:14 morphine [MORPHINE] Allergy Intermediate GI UPSET, Verified 07/06/23 11:14 difficulty breathing tramadol [TRAMADOL] AdvReac Unknown NAUSEA & Verified 07/06/23 11:14 VOMITING Review of Systems 2 Review of Systems: Yes all other systems are reviewed and are negative [facility] Past Medical History [facility] Narrative: Medical History Knee pain, left Seropositive rheumatoid arthritis Anxiety Achilles tendinitis Superficial femoral artery occlusion PAD (peripheral artery disease) Depression Hx of peripheral pulmonary artery stenosis History of chemotherapy Cancer of heart Bone cancer Lung cancer Bleeding hemorrhoid Degeneration, intervertebral disc, lumbar Chronic GERD Degeneration of intervertebral disc at C4-C5 level Osteoarthritis of spine with radiculopathy, lumbar region Fibromyalgia Esophageal dysphagia Vitamin D deficiency Systemic lupus erythematosus Seropositive rheumatoid arthritis Rheumatoid arthritis involving multiple sites Gallstones Stress incontinence in female Nocturia Urgency-frequency syndrome De Quervain's disease (tenosynovitis) Depressive disorder Acute arthritis Hodgkin disease Surgical History History of angioplasty of vein History of biopsy H/O tubal ligation Hx of endoscopy Hx laparoscopic cholecystectomy Hx of colonoscopy History of esophagogastroduodenoscopy (EGD) History of repair of inguinal hernia History of lymph node dissection of left axilla Family History Family History Maternal Grandmother Ovarian cancer Social History Social History Household Members: Spouse Housing: Apartment Are you a primary menagerie caretaker to a significant other at home: No Do 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 have 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 or other home services: Yes (financial services sales 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) Alcohol intake: never Comment: lozenge given 0838 Patient Tobacco Use Status: Current everyday Tobacco user Tobacco use type: Cigarette Cigarette Packs Per Day: 1 Smoked in Last 30 Days: Yes Substance Use Type: Marijuana Advance Directives: Yes Advance Directives on File: Yes Advance Directives Date on File: 09/23/20 service: No Current occupational status: disabled 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 Physical Exam ED Vital Signs: Vital Signs - 24 hr 07/12/23 05:57 Temperature 98.0 F Pulse Rate 87 Respiratory Rate 20 Blood Pressure 141/77 H Pulse Oximetry 98 Oxygen Delivery Method Room Air BMI result Body Mass Index 34.6 Vital signs revealed an elevated blood pressure of 141/77 otherwise unremarkable Exam General: Awake, alert , tearful secondary to pain Head: Normocephalic, atraumatic EENT: PERRL, Lids normal, sclera normal, conjunctiva normal, nose normal , ears normal, throat without erythema or exudates Neck: Supple, no adenopathy, no trachea midline or C-spine tenderness Lung: breath sounds symmetric, no wheezing, rales or rhonchi Chest: symmetric movement, nontender Heart: regular rate and rhythm, normal S1, S2 no murmurs or rubs Abdomen: soft, non-tender, nondistended, normal bowel sounds Back: no vertebral tenderness, no CVAT Extremities: Patient has no increased warmth over her joints. The patient's left hand wrist, MCP and PIP joints appear to be swollen, there is no erythema with minimal movement of these joints she has significant pain. She also has significant pain with minimal movement of her left elbow and left shoulder. Patient's left knee is not warm to the touch, there may be a small joint effusion compared to the right. Patient has limited range of motion of the right knee secondary to pain. She has tenderness palpation over the left knee with no joint effusion and pain with minimal movement as well. Neuro: Awake, alert, oriented, normal speech, moves all extremities symmetrically Psych: Pleasant, cooperative Medical Decision Making Medical Decision Making MDM Narrative: 47-year-old female with complex past medical history with significant autoimmune disease including rheumatoid arthritis, SLE and fibromyalgia who presents emergency department for 3 days of increased joint pain mainly over her left hand, wrist, elbow and shoulder also involving bilateral knees left greater than right. Patient has had subjective fever as well as complaining of chest pain, shortness of breath, nausea with no vomit. Patient has had at least 3 visits this month with similar complaints. Patient's vital signs did reveal an elevated blood pressure otherwise unremarkable pain. Patient does have swelling of joints of her hands, wrists and knees. Following evaluation was ordered: CBC, CMP, ESR and CRP. Patient was treated with prednisone 40 mg orally and oxycodone 10 mg orally 07:59 The patient's laboratory evaluation was interpreted by me as follows: 5900, chronic normocytic anemia with an H&H of 11.3 and 35.7. CMP was unremarkable except for an elevated total protein of 9.0 which is chronic. Patient's CRP and ESR pending however over the last 3 visits the patient's ESR is been greater than 80 and a CRP was ranged from 1.15-1.75. Patient's presentation is most likely caused by the flare-up of her rheumatoid arthritis or her fibromyalgia. Patient was given a dose of prednisone 40 mg orally and oxycodone orally with only minimal improvement of her symptoms. Patient will be discharged home with 40 mg once a day for 5 days and decrease every 2 days by 10 mg and completing the taper. She is then to go back on her 2.5 mg per day dose. She was advised to follow-up with her boot and shoe laborer for re-evaluation went Differential Diagnosis Differential Diagnoses: The differential diagnosis associated with the presentation includes Differential diagnosis includes was not limited to flare-up of systemic lupus, rheumatoid arthritis, or fibromyalgia, joint infection, DVT Admission/Observation Consideration of admission/observation: Escalation of care including admission/observation considered Lab Data [facility] Lab Attestation statement: I reviewed the patient's lab results. See MDM above 07/12/23 06:19 07/12/23 06:19 Labs: Lab Results 07/12/23 Range/Units 06:19 WBC 5.9 (4.8-10.8) X10*3/uL RBC 3.77 L (4.20-5.50) X10*6/uL Hgb 11.3 L (12.0-16.0) g/dl Hct 35.7 L (37.0-47.0) % MCV 94.7 (80.0-98.0) fL MCH 30.0 (27.0-33.0) pg MCHC 31.7 (31.0-35.0) g/dl RDW 13.7 (11.0-16.0) % Plt Count 294 (160-400) X10*3/uL MPV 9.8 (9.4-12.3) fL Absolute Nucleated RBC 0.000 (0.0-0.012) X10*3/uL Nucleated RBC % (auto) 0.0 (0.0-0.2) /100WBC Sodium 139 (135-145) mmol/L Potassium 3.7 (3.3-5.1) mmol/L Chloride 106 (96-108) mmol/L Carbon Dioxide 24 (22-29) mmol/L Anion Gap 13 (12-20) BUN 12 (9-16) mg/dL Creatinine 0.75 (0.5-1.4) mg/dL Estim Creat Clear Calc 95.2 Estimated GFR > 60 Random Glucose 96 (60-115) mg/dL Calcium 9.6 (8.4-10.2) mg/dL Total Bilirubin 0.2 (0.0-1.0) mg/dL AST 15 (5-31) U/L ALT 11 (0-31) U/L Alkaline Phosphatase 77 (39-117) U/L Total Protein 9.0 H (6.5-8.0) g/dL Albumin 3.9 (3.5-5.0) g/dL External Record Review External record reviewed: Office record (Rheumatology office note 07/06/2023) Prescription Management I considered prescription management with: Other (Prednisone) Chronic Conditions Patient?s care impacted by: Other (Rheumatoid arthritis, SLE, fibromyalgia) Discharge Plan Discharge Clinical Impression: Rheumatoid arthritis, Fibromyalgia, Joint pain Patient Disposition: Home, Self-Care Additional Instructions: The joint pain is caused by increased inflammation in your joints caused by your rheumatoid arthritis and your fibromyalgia pain Take prednisone 10 mg pills, 4 pills once a day for 5 days then decrease by one pill every 2 days until you complete the prescription. After you finish the prescription ED continue taking your prednisone 2.5 mg daily. While you are taking prednisone, do not take any NSAIDs (Motrin, Advil, ibuprofen, Aleve, naproxen). Continue taking your other medications as prescribed by your doctor You need to follow-up with your rheumatology to further management of your fibromyalgia and I did to try to help reduce the amount of inflammation that you have in your joints. Follow-up with your doctor in 2 days. Please return to the emergency department if your symptoms get worse or if you develop any symptoms that are concerning to you. Prescriptions: New prednisone 10 mg tablet 10 mg PO DIRECTED Qty: 32 0RF Rx Instructions: Day 1 through 5 take 4pills then decrease by 1 pill every 2 days until you complete prescription No Action Incruse Ellipta 62.5 mcg/actuation blister with device 1 inh PO DAILY Qty: 30 6RF ascorbate calcium (vitamin C) 500 mg tablet 1 g PO DAILY 90 Days Qty: 180 2RF cholecalciferol (vitamin D3) [Vitamin D3] 25 mcg (1,000 unit) capsule 25 mcg PO QAM Qty: 90 2RF baricitinib 2 mg tablet 2 mg PO DAILY Qty: 30 2RF vitamin A palmitate 3,000 mcg (10,000 unit) tablet 10,000 unit PO DAILY Qty: 90 1RF gabapentin 400 mg capsule 400 mg PO TID ferrous sulfate [FeroSul] 325 mg (65 mg iron) tablet 1 tab PO QAM albuterol sulfate [ProAir HFA] 90 mcg/actuation HFA aerosol inhaler 2 puff PO Q4-6H PRN (Reason: Wheezing) lidocaine [Lidoderm] 5 % adhesive patch,medicated 1 patch topical DAILY PRN (Reason: Pain) Rx Instructions: leave on most painful area for up to 12 hrs nicotine 21 mg/24 hr Patch 24 Hour 21 mg transdermal DAILY Qty: 30 0RF docusate sodium 100 mg capsule 100 mg PO BEDTIME PRN (Reason: Constipation) alprazolam 1 mg tablet 1 mg PO BEDTIME PRN (Reason: Anxiety) Eliquis 5 mg tablet 5 mg PO BID acetaminophen 500 mg tablet 500 - 1,000 mg PO Q8-10H PRN (Reason: pain) Qty: 100 4RF ibuprofen 600 mg tablet 600 mg PO Q8H PRN (Reason: mild pain) bupropion HCl 150 mg tablet sustained-release 12 hr PO folic acid 1 mg tablet 1 mg PO QAM fluticasone propionate 50 mcg/actuation spray,suspension 2 spray intranasal QAM benztropine 0.5 mg tablet 0.5 mg PO QAM pantoprazole 40 mg tablet,delayed release (DR/EC) 40 mg PO DAILY Qty: 90 1RF oxycodone-acetaminophen 5-325 mg tablet 1 tab PO Q8H PRN (Reason: severe pain) famotidine 20 mg tablet 20 mg PO BID risperidone 1 mg tablet PO cilostazol 50 mg tablet 50 mg PO prednisone 2.5 mg tablet See Rx Instructions .ROUTE .COMPLEX Qty: 90 3RF Rx Instructions: take two in mornings and one in evenings methotrexate sodium 2.5 mg tablet 20 mg PO QWEEK Qty: 96 1RF
[2023-07-12 07:59] VITALS: BP 134/86; PULSE 74; RESP 18; O2SAT 97
[2023-07-12] MEDS: predniSONE 20 MG TABLET 40 MG PO (08:13)
[2023-07-12] MEDS: oxyCODONE HCl Immed Release 5 MG TABLET 10 MG PO (08:13)
[2023-07-12 08:22] LABS: C Reactive Protein 1.71 mg/dL (< or = 0.50)
[2023-07-12 09:00] LABS: Erythrocyte Sedimentation Rate 88 MM/HR (0-20)
== END 2023-07-12 09:04 | disposition home or self-care (01) ==
PROVIDERS: Emergency Provider Emergency Medicine Emergency Medical Services
DX: M06.9 Rheumatoid arthritis, unspecified (principal); M79.7 Fibromyalgia; M25.562 Pain in left knee; M25.561 Pain in right knee; R50.9 Fever, unspecified; R07.89 Other chest pain; R11.2 Nausea with vomiting, unspecified; Z79.899 Other long term (current) drug therapy
CPT/HCPCS: 36415; 80053; 85027; 85652; 86140; 99283; 99284

== ENCOUNTER 2023-07-13 08:56 | Outpatient (AMB) | payer MEDICAID, SELFPAY ==
--- NOTE | 2023-07-13 08:59 | MHC.OFFVIS ---
Intake Vital Signs 07/13/23 09:13 Height 5 ft 2 in Weight 187 lb 6.287 oz BMI 34.3 BP 123/65 Blood Pressure Location Lt brachial Position Sitting Pulse 77 Intake Visit Reasons: mass soft tissue of neck Intake Note: This patient presents for an assessment for soft tissue mass of the neck. Patient c/o; reports Hx lupus. Director Industrial Nursing Required: Yes Director Industrial Nursing Language: Vegetable Handler Name: Herb Information Interpreted: non-clinical & clinical Accompanied by: Self / Same As Patient Allergies almond [ALMONDS] Allergy (Severe, Verified 07/13/23 09:08) ANAPHYLAXIS adhesive tape [ADHESIVE TAPE] Allergy (Intermediate, Verified 07/13/23 09:08) RASH morphine [MORPHINE] Allergy (Intermediate, Verified 07/13/23 09:08) GI UPSET, difficulty breathing tramadol [TRAMADOL] Adverse Reaction (Unknown, Verified 07/13/23 09:08) NAUSEA & VOMITING Medication List - Last Reconciled 07/13/23 by Antoine Caicedo MD acetaminophen 500 - 1,000 mg (1 - 2 x 500 mg) PO Q8-10H PRN albuterol sulfate 90 mcg/actuation (ProAir HFA) 2 puffs PO Q4-6H PRN alprazolam 1 mg PO BEDTIME PRN apixaban (Eliquis) 5 mg PO BID ascorbate calcium (vitamin C) 1 g (2 x 500 mg) PO DAILY 90 days ascorbic acid (vitamin C) (Vitamin C) 1,000 mg PO QAM baricitinib 2 mg PO DAILY benztropine 0.5 mg PO QAM bupropion HCl mg PO cholecalciferol (vitamin D3) (Vitamin D3) 25 mcg PO QAM cilostazol 50 mg PO docusate sodium 100 mg PO BEDTIME PRN famotidine 20 mg PO BID ferrous sulfate (FeroSul) 1 tab PO QAM fluticasone propionate 50 mcg/actuation 2 sprays intranasal QAM folic acid 1 mg PO QAM gabapentin 400 mg PO TID ibuprofen 600 mg PO Q8H PRN lidocaine 5% (Lidoderm) 1 patch topical DAILY PRN methotrexate sodium 20 mg (8 x 2.5 mg) PO QWEEK nicotine 21 mg transdermal DAILY oxycodone-acetaminophen 5-325 mg 1 tab PO Q8H PRN pantoprazole 40 mg PO DAILY prednisone 10 mg PO DIRECTED prednisone take two in mornings and one in evenings prednisone 20 mg PO DAILY risperidone mg PO sertraline (Zoloft) 75 mg PO DAILY trazodone 150 mg PO BEDTIME PRN umeclidinium 62.5 mcg/actuation (Incruse Ellipta) 1 inh PO DAILY vitamin A 1 cap PO QAM vitamin A palmitate 10,000 units PO DAILY HPI mass soft tissue of neck HPI Details 47-year-old female referred for a mass on the neck. She points to the area of the scalp near the neck with lesion reviewed she has had for about 4 years. She feels that this has been increasing in size. She says that she is worried about an ?infection?. She wants this removed. [facility] Medical History Skin lesion Knee pain, left Seropositive rheumatoid arthritis Anxiety Achilles tendinitis Superficial femoral artery occlusion PAD (peripheral artery disease) Depression Hx of peripheral pulmonary artery stenosis History of chemotherapy Cancer of heart Bone cancer Lung cancer Bleeding hemorrhoid Degeneration, intervertebral disc, lumbar Chronic GERD Degeneration of intervertebral disc at C4-C5 level Osteoarthritis of spine with radiculopathy, lumbar region Fibromyalgia Esophageal dysphagia Vitamin D deficiency Systemic lupus erythematosus Seropositive rheumatoid arthritis Rheumatoid arthritis involving multiple sites Gallstones Stress incontinence in female Nocturia Urgency-frequency syndrome De Quervain's disease (tenosynovitis) Depressive disorder Acute arthritis Hodgkin disease Surgical History History of angioplasty of vein History of biopsy H/O tubal ligation Hx of endoscopy Hx laparoscopic cholecystectomy Hx of colonoscopy History of esophagogastroduodenoscopy (EGD) History of repair of inguinal hernia History of lymph node dissection of left axilla Family History Maternal Grandmother Ovarian cancer Social History Household Members: Spouse Housing: Apartment Are you a primary patient care assistant to a significant other at home: No Do 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 have 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 or other home services: Yes (caregiver services home) Alcohol intake: never Comment: lozenge given [id number] Patient Tobacco Use Status: Current everyday Tobacco user Tobacco use type: Cigarette Cigarette Packs Per Day: 1 Substance Use Type: Marijuana Advance Directives Date on File: 09/23/20 service: No Current occupational status: disabled 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 Card Denies chest pain, Denies dyspnea and Denies dyspnea on exertion Resp Denies cough, Denies dyspnea and Denies dyspnea on exertion GI Denies hematochezia and Denies change in bowel habits Denies hematuria Musc Denies back pain and Denies limited range of motion Neuro Denies focal weakness and Denies convulsions Psych Denies depression and Denies mood swings Physical Exam Const General: comfortable and no acute distress Orientation/consciousness: patient oriented x3 Neck Neck: Yes no lymphadenopathy Resp Auscultation: clear to auscultation bilaterally Cardio Rhythm: regular rhythm GI Palpation (GI): Soft to palpation, nontender and no guarding Neuro General: patient oriented x3 Office Procedures Excision Details: She was placed in lateral decubitus position. The area of the lesion was prepped and draped. Lidocaine 1% was used for local anesthesia. I made an elliptical incision around this lesion using blade 15. This lesion was about 5 mm in diameter. The incision was carried down through the full-thickness of the skin to excise the entire lesion. This was sent as a specimen. I closed the incision with full-thickness nylon 3-0 interrupted sutures. She tolerated procedure well. She will be seen in the office for follow-up in 2 weeks to remove the stitches. [id number] scalp/neck/hands/feet/genitalia 0.6cm-1cm Procedure code (CPT) selection complete Assessment & Plan Assessment & Plan (1) Skin lesion: Code(s): L98.9 - Disorder of the skin and subcutaneous tissue, unspecified Plan: She has what appears to be a papillomatous lesion as described above on the occipital aspect of her scalp. I explained to her the technique of excision under local anesthesia. I reviewed the risks including but not limited to bleeding, infections, poor healing, as well as the benefits and alternatives. She gave verbal consent. Excision was done in the office under local anesthesia. She was given wound care instructions. I will see her in the office in about 2 weeks for removal of sutures. Coding Level of Care Code New Pt Level 3 (00930) Diagnoses Skin lesion L98.9 CPT Codes Scalp/Neck/Hands/Feet/Genetalia - CPT: 58176-[id number] scalp/neck/hands/feet/genitalia 0.6cm-1cm ([id number])
[2023-07-13 09:13] VITALS: BP 123/65; PULSE 77; BMI 34.3
== END 2023-07-13 09:45 | disposition home or self-care (01) ==
PROVIDERS: PCP General Practice; Visit Provider Surgery
DX: L98.9 Disorder of the skin and subcutaneous tissue, unspecified (principal); D22.4 Melanocytic nevi of scalp and neck
CPT/HCPCS: 11420; 99203

== ENCOUNTER 2023-07-13 08:56 | Outpatient (REF) | payer MEDICAID, SELFPAY | END 2023-07-13 08:57 | disposition home or self-care (01) | LOC: HO.LNP 08:56 | PROVIDERS: PCP General Practice; Visit Provider Surgery | DX: L98.9 Disorder of the skin and subcutaneous tissue, unspecified (principal); Z79.899 Other long term (current) drug therapy | CPT/HCPCS: 11420; 88305; 99202 ==

== ENCOUNTER 2023-07-14 09:41 | Outpatient (AMB) | payer MEDICAID, SELFPAY ==
--- NOTE | 2023-07-14 09:44 | A.OFFVIS_ITS ---
Intake Intake Visit Reasons: over due fu Intake Note: pt her for fallow up CT angiogram ABD and Pelvis with a hx of Right Leg Angio on 06/09/22Pt states that she was at the emergency room the day before yesterday with swelling and extreme pain in her legs she was unable to walk. They did not do no imagine She was given prednisone for the next 5 days Garment Cutter Required: Yes Garment Cutter Name: ryann mishra Information Interpreted: non-clinical & clinical Allergies almond [ALMONDS] Allergy (Severe, Verified 07/14/23 09:49) ANAPHYLAXIS adhesive tape [ADHESIVE TAPE] Allergy (Intermediate, Verified 07/14/23 09:49) RASH morphine [MORPHINE] Allergy (Intermediate, Verified 07/14/23 09:49) GI UPSET, difficulty breathing tramadol [TRAMADOL] Adverse Reaction (Unknown, Verified 07/14/23 09:49) NAUSEA & VOMITING HPI over due fu HPI Details Very pleasant 47-year-old female presents for follow-up regarding peripheral vascular disease. She continues to have difficulty ambulating a block. She continues to smoke about a half a pack per day which is down from 2 packs per day for her. She now presents for follow-up with CT angiogram. [facility] Medical History (Updated 07/14/23 @ 12:29 by Frankie Hughes MD) PAD (peripheral artery disease) Skin lesion Knee pain, left Seropositive rheumatoid arthritis Anxiety Achilles tendinitis Superficial femoral artery occlusion Depression Hx of peripheral pulmonary artery stenosis History of chemotherapy Cancer of heart Bone cancer Lung cancer Bleeding hemorrhoid Degeneration, intervertebral disc, lumbar Chronic GERD Degeneration of intervertebral disc at C4-C5 level Osteoarthritis of spine with radiculopathy, lumbar region Fibromyalgia Esophageal dysphagia Vitamin D deficiency Systemic lupus erythematosus Seropositive rheumatoid arthritis Rheumatoid arthritis involving multiple sites Gallstones Stress incontinence in female Nocturia Urgency-frequency syndrome De Quervain's disease (tenosynovitis) Depressive disorder Acute arthritis Hodgkin disease Surgical History History of angioplasty of vein History of biopsy H/O tubal ligation Hx of endoscopy Hx laparoscopic cholecystectomy Hx of colonoscopy History of esophagogastroduodenoscopy (EGD) History of repair of inguinal hernia History of lymph node dissection of left axilla Family History Maternal Grandmother Ovarian cancer Social History Household Members: Spouse Housing: Apartment Are you a primary healthcare applications analyst to a significant other at home: No Do 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 have 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 or 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) Alcohol intake: never Comment: lozenge given [id number] Patient Tobacco Use Status: Current everyday Tobacco user Tobacco use type: Cigarette Cigarette Packs Per Day: 1 Substance Use Type: Marijuana Advance Directives Date on File: 09/23/20 service: No Current occupational status: disabled 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 of Systems Const All systems reviewed & are unremarkable except as noted in HPI and below Reports no additional complaints ENT Reports Normal hearing present Card Denies chest pain, Denies chest pain at rest, Denies chest pain with activity and Denies pedal edema Resp Denies cough GI Denies abdominal pain Musc Denies abnormal gait, Denies muscle cramps and Denies radiating pain into limb Skin/Breast Denies skin ulcer and Denies wounds Neuro Reports Normal hearing present and Denies abnormal gait Psych Reports no additional complaints Physical Exam Const General: cooperative, healthy appearing and comfortable Orientation/consciousness: oriented to person, oriented to place and oriented to time HEENT Head: Yes normal to inspection Neck Neck: Yes normal visual inspection Carotids: no bruits Chest Chest palpation & inspection: normal inspection of the chest Resp Effort & Inspection: normal respiratory effort and able to speak in complete sentences Auscultation: clear to auscultation bilaterally, no crackles, no rales, no rhonchi and no wheezes Cardio Other: Bilateral DP signals Rate: regular rate Rhythm: regular rhythm Heart sounds: S1 normal heart sound present and S2 normal heart sound present Bruits: no carotid bruits Peripheral pulses: Peripheral pulses 2+ throughout GI Inspection: Yes normal to inspection Skin Wounds: no wounds Hair: normal Neuro General: oriented to person, oriented to place and oriented to time Cranial nerves: Yes CN's II-XII intact bilaterally and Yes Normal hearing pre sent Cognition (Neuro): normal cognition Motor exam (neuro): 5/5 motor strength present throughout Extrem Other: venous exam: No significant superficial varicosities or spider telangiectasias, minimal edema General: No clubbing, No cyanosis and No edema Psych Appearance: grossly normal Mental Status: mental status grossly normal Speech and movement: Normal speech and movement present Results Reviewed Results Reviewed: CT angiogram dated 04/21/2023 demonstrates chronic occlusion of the left common iliac artery. New occlusion of the right SFA. Written report and images were reviewed Assessment & Plan Assessment & Plan (1) PAD (peripheral artery disease): Comment: 04/21/2022 - diagnostic angiogram - left common iliac occlusion, right SFA stenosis at [facility] 06/09/2022 - right SFA angioplasty and stent via radial approach Code(s): I73.9 - Peripheral vascular disease, unspecified Plan: In short patient has significant peripheral vascular disease. She does have multiple issues going on. At the current time she is in the process of moving and is not interested in any acute intervention. She would like to continue with conservative measures. We did discuss the importance of ambulation and smoking cessation. We discussed routine risk factor modification. I have taken the liberty of ordering cilastazol. She will follow up with us in approximately 3 months time for routine leg check. Thank you for allowing us to assist in her care. (2) Deep vein thrombophlebitis of right leg: Comment: 12/2021:acute partial DVT right proximal and distal posterior tibial vein. 2019: Anti cardiolipin antibody, anti beta 2 glycoprotein antibody, and lupus anticoagulant all negative Code(s): I80.201 - Phlebitis and thrombophlebitis of unspecified deep vessels of right lower extremity Plan: Continue to observe Medications: New cilostazol 100 mg PO BID 180 tabs 1RF Coding Level of Care Code Est Pt Level 4 (82785) Diagnoses PAD (peripheral artery disease) I73.9 Deep vein thrombophlebitis of right leg I80.201
== END 2023-07-14 10:30 | disposition home or self-care (01) ==
PROVIDERS: PCP Emergency Medicine; Visit Provider Surgery Vascular Surgery
DX: I73.9 Peripheral vascular disease, unspecified (principal); I80.231 Phlebitis and thrombophlebitis of right tibial vein; Z95.820 Peripheral vascular angioplasty status with implants and grafts
CPT/HCPCS: 99214

== ENCOUNTER → 2023-07-14 09:41 | Outpatient (BNVA) | payer MEDICAID, SELFPAY | PROVIDERS: PCP Emergency Medicine; Visit Provider Surgery Vascular Surgery | DX: I73.9 Peripheral vascular disease, unspecified (principal); I80.201 Phlebitis and thrombophlebitis of unspecified deep vessels of right lower extremity | CPT/HCPCS: 99212 ==

== ENCOUNTER 2023-07-27 09:27 | Outpatient (AMB) | payer MEDICAID, SELFPAY ==
--- NOTE | 2023-07-27 09:49 | A.OFFVIS_ITS ---
Intake Vital Signs 07/27/23 09:54 Height 5 ft 2 in Weight 187 lb 6.287 oz BMI 34.3 BP 137/82 Blood Pressure Location Lt brachial Position Sitting Pulse 92 Intake Visit Reasons: s/p exc cyst neck Intake Note: This patient presents for a post-op follow-up assessment status post excision skin lesion occipital aspect of scalp. ( in-office procedure 07/13/2023) Patient c/o; reports no complaints at this time. Auto Specialty Services Manager Required: Yes Auto Specialty Services Manager Language: Jingle Writer Name: Herb Information Interpreted: non-clinical & clinical Accompanied by: Self / Same As Patient Allergies almond [ALMONDS] Allergy (Severe, Verified 07/27/23 09:55) ANAPHYLAXIS adhesive tape [ADHESIVE TAPE] Allergy (Intermediate, Verified 07/27/23 09:55) RASH morphine [MORPHINE] Allergy (Intermediate, Verified 07/27/23 09:55) GI UPSET, difficulty breathing tramadol [TRAMADOL] Adverse Reaction (Unknown, Verified 07/27/23 09:55) NAUSEA & VOMITING HPI s/p exc cyst neck HPI Details She underwent excision of a lesion from the neck under local anesthesia last 07/14/2023. She tolerated procedure well. She currently denies significant complaints. [facility] Medical History PAD (peripheral artery disease) Skin lesion Knee pain, left Seropositive rheumatoid arthritis Anxiety Achilles tendinitis Superficial femoral artery occlusion Depression Hx of peripheral pulmonary artery stenosis History of chemotherapy Cancer of heart Bone cancer Lung cancer Bleeding hemorrhoid Degeneration, intervertebral disc, lumbar Chronic GERD Degeneration of intervertebral disc at C4-C5 level Osteoarthritis of spine with radiculopathy, lumbar region Fibromyalgia Esophageal dysphagia Vitamin D deficiency Systemic lupus erythematosus Seropositive rheumatoid arthritis Rheumatoid arthritis involving multiple sites Gallstones Stress incontinence in female Nocturia Urgency-frequency syndrome De Quervain's disease (tenosynovitis) Depressive disorder Acute arthritis Hodgkin disease Surgical History History of surgical removal of skin lesion (~07/13/23) History of angioplasty of vein History of biopsy H/O tubal ligation Hx of endoscopy Hx laparoscopic cholecystectomy Hx of colonoscopy History of esophagogastroduodenoscopy (EGD) History of repair of inguinal hernia History of lymph node dissection of left axilla Family History Maternal Grandmother Ovarian cancer Social History Household Members: Spouse Housing: Apartment Are you a primary day care home provider to a significant other at home: No Do 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 have 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 or 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 home services: 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 (union 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) Alcohol intake: never Comment: lozenge given 2213 Patient Tobacco Use Status: Current everyday Tobacco user Tobacco use type: Cigarette Cigarette Packs Per Day: 1 Substance Use Type: Marijuana Advance Directives Date on File: 09/23/20 service: No Current occupational status: disabled 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 of Systems Const Denies chills and Denies fever(s) Card Denies chest pain, Denies dyspnea and Denies dyspnea on exertion Resp Denies cough, Denies dyspnea and Denies dyspnea on exertion GI Denies hematochezia and Denies change in bowel habits Denies hematuria Musc Denies back pain and Denies limited range of motion Neuro Denies focal weakness and Denies convulsions Psych Denies depression and Denies mood swings Physical Exam Vital Signs: Last Vital Signs Pulse 92 07/27/23 09:54 BP 137/82 07/27/23 09:54 BMI result Body Mass Index 34.3 Const General: comfortable and no acute distress Neck Other: Excision site is well healed, not infected Assessment & Plan Assessment & Plan (1) Skin lesion: Code(s): L98.9 - Disorder of the skin and subcutaneous tissue, unspecified Plan: Status post excision of a skin lesion on the neck. Her sutures were removed. The incision is well healed Her path report showed a melanocytic nevus. She can follow up on a p.r.n. basis. Coding Level of Care Code Global (59676) Diagnoses Skin lesion L98.9
[2023-07-27 09:54] VITALS: BP 137/82; PULSE 92; BMI 34.3
== END 2023-07-27 10:39 | disposition home or self-care (01) ==
PROVIDERS: PCP General Practice; Visit Provider Surgery
DX: L98.9 Disorder of the skin and subcutaneous tissue, unspecified (principal)
CPT/HCPCS: 99024

== ENCOUNTER → 2023-07-27 09:27 | Outpatient (BNVA) | payer MEDICAID, SELFPAY | PROVIDERS: PCP General Practice; Visit Provider Surgery | DX: Z48.817 Encounter for surgical aftercare following surgery on the skin and subcutaneous tissue (principal); Z98.890 Other specified postprocedural states | CPT/HCPCS: 99212 ==

== ENCOUNTER 2023-09-16 19:27 | Outpatient (REF) | payer MEDICAID, SELFPAY | END 2023-09-16 19:28 | disposition home or self-care (01) | LOC: HO.HHCLNP 19:27 | PROVIDERS: Visit Provider Student in an Organized Health Care Education/Training Program | DX: R05.9 Cough, unspecified (principal) | CPT/HCPCS: 87070 ==

== ENCOUNTER 2023-09-21 11:09 | Emergency (ER) | payer MEDICAID, SELFPAY ==
[2023-09-21] VITALS (7 sets, daily range): BP systolic 133–148; BP diastolic 67–85; PULSE 69–90; RESP 15–16; TEMP 36.7–37; O2SAT 96–97; BMI 41.2
--- NOTE | ~2023-09-21 | XR_ITS ---
EXAMINATION: XR CHEST CLINICAL INFORMATION: Shortness of breath and difficulty breathing COMPARISON: 06/25/2023 TECHNIQUE: 2 views of the chest were obtained. FINDINGS: Lungs clear. No pleural effusions. Heart and pulmonary vessels are normal. No congestive change. XR/XR chest 2V IMPRESSION: No active disease.
--- NOTE | 2023-09-21 11:20 | ED.GENADULT ---
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 Patient states that she tested positive for COVID-19 on 09/16/2023. She states that her symptoms have included fever, nonproductive cough which is improved, nausea, vomiting, myalgias and arthralgias. Patient states that over the past 2 days she has been feeling dizzy as if she was going to pass out. She states that both of her legs hurt. She is also having diffuse back pain. She denied shortness of breath or dyspnea on exertion. She has not noticed any dark tarry stools or bloody stools. She denied frequency, urgency or dysuria. Patient states she is received 3 COVID vaccinations and has had 1 previous COVID infection. 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 Related Data Home Medications Medication Instructions Recorded Confirmed albuterol sulfate 90 mcg/actuation 2 puff PO Q4-6H PRN Wheezing 10/02/21 07/13/23 aerosol inhaler (ProAir HFA) ferrous sulfate 325 mg (65 mg 1 tab PO QAM 10/02/21 07/13/23 iron) tablet (FeroSul) gabapentin 400 mg capsule 400 mg PO TID 10/22/21 07/13/23 docusate sodium 100 mg capsule 100 mg PO BEDTIME PRN Constipation 04/19/22 07/13/23 apixaban 5 mg tablet (Eliquis) 5 mg PO BID 09/22/22 07/13/23 alprazolam 1 mg tablet 1 mg PO BEDTIME PRN Anxiety 12/10/22 07/13/23 benztropine 0.5 mg tablet 0.5 mg PO QAM 01/17/23 07/13/23 lidocaine 5 % topical patch 1 patch topical DAILY PRN Pain 04/20/23 07/13/23 (Lidoderm) famotidine 20 mg tablet 20 mg PO BID 05/16/23 07/13/23 oxycodone-acetaminophen 5 mg-325 1 tab PO Q8H PRN severe pain 05/16/23 07/13/23 mg tablet risperidone 1 mg tablet mg PO 05/16/23 07/13/23 bupropion HCl 150 mg tablet,12 hr mg PO 06/09/23 07/13/23 sustained-release fluticasone propionate 50 2 spray intranasal QAM 06/09/23 07/13/23 mcg/actuation nasal spray,suspension folic acid 1 mg tablet 1 mg PO QAM 06/09/23 07/13/23 ibuprofen 600 mg tablet 600 mg PO Q8H PRN mild pain 06/09/23 07/13/23 ascorbic acid (vitamin C) 500 mg 1,000 mg PO QAM 07/13/23 07/13/23 tablet (Vitamin C) prednisone 20 mg tablet 20 mg PO DAILY 07/13/23 07/13/23 sertraline 50 mg tablet (Zoloft) 75 mg PO DAILY 07/13/23 07/13/23 trazodone 150 mg tablet 150 mg PO BEDTIME PRN 07/13/23 07/13/23 vitamin A 3,000 mcg (10,000 unit) 1 cap PO QAM 07/13/23 07/13/23 capsule Previous Rx's Medication Instructions Recorded acetaminophen 500 mg tablet 500 - 1,000 mg (1 - 2 x 500 mg) PO 09/22/22 Q8-10H PRN pain #100 tabs umeclidinium 62.5 mcg/actuation 1 inh PO DAILY #30 ea 11/29/22 blister powder for inhalation (Incruse Ellipta) cholecalciferol (vitamin D3) 25 25 mcg PO QAM #90 caps 02/28/23 mcg (1,000 unit) capsule (Vitamin D3) nicotine 21 mg/24 hr daily 21 mg transdermal DAILY #30 ea 04/21/23 transdermal patch methotrexate sodium 2.5 mg tablet 20 mg (8 x 2.5 mg) PO QWEEK #96 05/16/23 tabs prednisone 2.5 mg tablet See Rx Instructions .Route 05/16/23 .COMPLEX #90 tabs baricitinib 2 mg tablet 2 mg PO DAILY #30 tabs 06/09/23 vitamin A palmitate 3,000 mcg 10,000 unit PO DAILY #90 tabs 06/15/23 (10,000 unit) tablet prednisone 10 mg tablet 10 mg PO DIRECTED #32 tabs 07/12/23 cilostazol 100 mg tablet 100 mg PO BID #180 tabs 07/14/23 pantoprazole 40 mg tablet,delayed 40 mg PO DAILY #90 tabs 08/09/23 release ascorbic acid (vitamin C) 500 mg 1,000 mg (2 x 500 mg) PO QAM #180 09/06/23 tablet (Vitamin C) tabs Allergies Allergy/AdvReac Type Severity Reaction Status Date / Time almond [ALMONDS] Allergy Severe ANAPHYLAXIS Verified 09/21/23 11:21 adhesive tape [ADHESIVE TAPE] Allergy Intermediate RASH Verified 09/21/23 11:21 morphine [MORPHINE] Allergy Intermediate GI UPSET, Verified 09/21/23 11:21 difficulty breathing tramadol [TRAMADOL] AdvReac Unknown NAUSEA & Verified 09/21/23 11:21 VOMITING Review of Systems Review of Systems: Yes all other systems are reviewed and are negative [facility] Past Medical History [facility] Narrative: Social history: The patient does smoke cigarettes. She denies alcohol use. She does smoke marijuana cigarettes that she gets from a dispensary. Medical History PAD (peripheral artery disease) Skin lesion Knee pain, left Seropositive rheumatoid arthritis Anxiety Achilles tendinitis Superficial femoral artery occlusion Depression Hx of peripheral pulmonary artery stenosis History of chemotherapy Cancer of heart Bone cancer Lung cancer Bleeding hemorrhoid Degeneration, intervertebral disc, lumbar Chronic GERD Degeneration of intervertebral disc at C4-C5 level Osteoarthritis of spine with radiculopathy, lumbar region Fibromyalgia Esophageal dysphagia Vitamin D deficiency Systemic lupus erythematosus Seropositive rheumatoid arthritis Rheumatoid arthritis involving multiple sites Gallstones Stress incontinence in female Nocturia Urgency-frequency syndrome De Quervain's disease (tenosynovitis) Depressive disorder Acute arthritis Hodgkin disease Surgical History History of surgical removal of skin lesion (~07/13/23) History of angioplasty of vein History of biopsy H/O tubal ligation Hx of endoscopy Hx laparoscopic cholecystectomy Hx of colonoscopy History of esophagogastroduodenoscopy (EGD) History of repair of inguinal hernia History of lymph node dissection of left axilla Family History Family History Maternal Grandmother Ovarian cancer Social History Social History Household Members: Spouse Housing: Apartment Are you a primary prompt care rn to a significant other at home: No 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) Alcohol intake: never Comment: lozenge given 0845 Patient Tobacco Use Status: Current everyday Tobacco user Tobacco use type: Cigarette Cigarette Packs Per Day: 1 Smoked in Last 30 Days: Yes Use of substances other than those prescribed or required for medical reasons: Yes Substance Use Type: Marijuana Advance Directives: Yes Advance Directives Information Provided: No Advance Directives on File: No Advance Directives Date on File: 09/23/20 service: No Current occupational status: disabled 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 Physical Exam ED Vital Signs: Vital Signs - 24 hr 09/21/23 11:21 09/21/23 17:25 09/21/23 17:25 Temperature 98.6 F 98.0 F Pulse Rate 90 72 71 Respiratory Rate 16 15 Blood Pressure 145/85 H 133/67 133/67 Pulse Oximetry 96 97 Oxygen Delivery Method Room Air Room Air 09/21/23 17:26 09/21/23 17:28 09/21/23 17:45 Temperature Pulse Rate 77 73 69 Respiratory Rate Blood Pressure 143/71 H 141/76 H 140/72 H Pulse Oximetry Oxygen Delivery Method 09/21/23 17:46 09/21/23 17:47 Temperature Pulse Rate 71 74 Respiratory Rate Blood Pressure 133/72 148/76 H Pulse Oximetry Oxygen Delivery Method BMI result Body Mass Index 41.2 Orthostatic vital signs were normal. Exam: General: Awake, alert in no distress Head: Normocephalic, atraumatic EENT: PERRL, Lids normal, sclera normal, conjunctiva normal, nose normal , ears normal, throat without erythema or exudates Neck: Supple, no adenopathy Lung: breath sounds symmetric, no wheezing, rales or rhonchi Chest: symmetric movement, tender sternum and costochondral joints bilaterally Heart: regular rate and rhythm, normal S1, S2 no murmurs or rubs Abdomen: soft, non-tender, nondistended, normal bowel sounds Back: Diffuse vertebral tenderness as well as diffuse tenderness palpation of the paraspinal muscles increase in the lumbar sacral region, no spasm, no rashes or lesions noted Extremities: no deformities, moves all extremities symmetrically Neuro: Awake, alert, oriented, normal speech, cranial nerves intact, moves all extremities symmetrically Psych: Pleasant, cooperative Course Course Course Narrative: RME: 48 year-old F w/ PMHx GERD, PAD, Fibromyalgia, anxiety, RA, Hodgkin's, COVID on 09/16/23, hx clots on presenting to the ED c/o lightheadedness, blurry vision, SOB, CP, b/l LE pain & low back pain x2 days. EKG, Labs, viral testing, UA, orthostatics ordered Full HPI, ROS and PE to be performed by primary ED provider. Medical Decision Making Medical Decision Making [facility] Narrative: 47-year-old female with rheumatoid arthritis, SLE, anxiety, peripheral arterial disease, depression, GERD, degenerative disc disease, fibromyalgia, Hodgkin's disease (2004) who presents emergency department for evaluation of dizziness, chest pain and back pain. Patient states that she tested positive for COVID-19 on 09/16/2023. Vital signs were unremarkable the patient was not orthostatic. Exam did reveal tenderness palpation of her sternum as well as costochondral joints bilaterally as well as tenderness palpation of her back vertebrae and paraspinal muscles Following evaluation was ordered: Urinary CBC, BMP, liver profile, troponin, PT/INR, magnesium, BNP, urinalysis, chest x-ray two view, EKG Patient was initially treated with the following: Tylenol 975 mg orally and oxycodone 10 mg orally Differential diagnosis: Includes was not limited to pneumonia, bronchitis, viral syndrome, viral myalgias, fibromyalgia flare-up, electrolyte abnormalities, anemia, orthostatic hypotension 18:10 My interpretation patient's laboratory evaluation is as follows: CBC was normal, CMP was normal. Troponin was below detectable limits. Urinalysis was positive for blood leukocyte esterase microscopic is consistent with a non clean catch specimen. BNP was normal at 46. Troponin was below detectable limits. Chest x-ray was unremarkable with no evidence for pneumonia and EKG was also normal. Patient's symptoms are consistent with myalgias secondary to her COVID-19 infection or may be consistent with flare-up of her fibromyalgia. Patient was advised to continue taking her medications as prescribed by your providers and to take the Percocet as prescribed by your provider. Admission/Observation Consideration of admission/observation: Escalation of care including admission/observation considered Lab Data MDM Lab Attestation statement: I reviewed the patient's lab results. 09/21/23 11:41 09/21/23 11:41 Labs: Lab Results 09/21/23 Range/Units 11:41 WBC 5.8 (4.8-10.8) X10*3/uL RBC 3.95 L (4.20-5.50) X10*6/uL Hgb 12.2 (12.0-16.0) g/dl Hct 36.4 L (37.0-47.0) % MCV 92.2 (80.0-98.0) fL MCH 30.9 (27.0-33.0) pg MCHC 33.5 (31.0-35.0) g/dl RDW 14.6 (11.0-16.0) % Plt Count 271 (160-400) X10*3/uL MPV 9.8 (9.4-12.3) fL Immature Gran % (Auto) 0.2 (0.0-0.4) % Neut % (Auto) 57.7 (45-73) % Lymph % (Auto) 34.5 (20-40) % Gilchrist % (Auto) 7.1 (2-11) % Eos % (Auto) 0.3 (0-4) % Baso % (Auto) 0.2 (0-2) % Lymph # (Auto) 2.0 (1.2-4.9) X10*3/uL Gilchrist # (Auto) 0.4 (0.1-1.2) X10*3/uL Eos # (Auto) 0.0 (0.0-0.4) X10*3/uL Baso # (Auto) 0.0 (0.0-0.2) X10*3/uL Abs Immat Gran (auto) 0.01 (0.00-0.03) X10*3/uL Absolute Neuts (auto) 3.3 (2.0-8.3) x10*3/uL Absolute Nucleated RBC 0.000 (0.0-0.012) X10*3/uL Nucleated RBC % (auto) 0.0 (0.0-0.2) /100WBC PT 11.3 (11.1-13.3) SEC INR 0.9 (0.9-1.1) Sodium 140 (135-145) mmol/L Potassium 3.6 (3.3-5.1) mmol/L Chloride 108 (96-108) mmol/L Carbon Dioxide 24 (22-29) mmol/L Anion Gap 12 (12-20) BUN 11 (9-16) mg/dL Creatinine 0.72 (0.5-1.4) mg/dL Estim Creat Clear Calc 96.0 Estimated GFR > 60 Random Glucose 86 (60-115) mg/dL Calcium 9.5 (8.4-10.2) mg/dL Magnesium 2.1 (1.6-2.6) mg/dL Total Bilirubin 0.3 (0.0-1.0) mg/dL Direct Bilirubin 0.1 (0.0-0.5) mg/dL AST 18 (5-31) U/L ALT 9 (0-31) U/L Alkaline Phosphatase 55 (39-117) U/L Troponin I High Sens < 2.7 (<3.5-17.0) ng/L B-Natriuretic Peptide 46 (<100) pg/mL Total Protein 8.7 H (6.5-8.0) g/dL Albumin 4.3 (3.5-5.0) g/dL Urine Color [place] A Urine Appearance Cloudy Urine pH 5.5 (5.0-9.0) Ur Specific [place] 1.025 (1.005-1.025) Urine Protein Trace (Neg-Trace) mg/dL Urine Glucose (UA) Negative (Negative) mg/dL Urine Ketones Trace (Negative) mg/dL Urine Blood Large (3+) H (Negative) Urine Nitrite Negative (Negative) Ur Leukocyte Esterase Trace H (Negative) Urine RBC >20 H (0-2) /HPF Urine WBC 6-10 H (0-5) /HPF Ur Squamous Epith Cells 11-20 (0-2) /HPF Urine Bacteria 1+ (None Seen) Hyaline Casts 0-2 (0-2) /LPF Independent Interpretation I performed an independent interpretation of an: EKG and Plain X-Ray Interpretation: My interpretation patient's two view chest x-ray is as follows: No acute disease My independent interpretation patient's 12 EKG done at 11:31 hours is as follows: Normal sinus rhythm with a rate of 66 normal AR interval, prolonged QRS duration of 104 milliseconds, normal QTC interval, no ST segment elevation, no ST segment depression, no PACs, no PVCs, poor R-wave progression from V1 to V3. When compared to EKG dated 06/25/2023 at at 11:06 hours poor R-wave progression is not new. Radiology Impression Discussion of test interpretation with radiology: I have reviewed the radiologist's reading. Radiologist Impression: XR chest 2V IMPRESSION: No active disease. Dictated By: Mario Alberto Munguia MD Prescription Management I considered prescription management with: Other (Systemic lupus erythematosus, fibromyalgia) Discharge Plan Discharge Clinical Impression: Back pain, Dizziness, COVID-19 virus infection Patient Disposition: Home, Self-Care Additional Instructions: Your blood work today was normal. Your chest x-ray revealed no evidence for pneumonia which is reassuring. Your EKG which is an electrical pictures of your heart was also normal Your pain and dizziness is caused by your COVID infection. Take the Percocet as prescribed by your provider. Follow-up with your doctor in 2 days. Please return to the emergency department if your symptoms get worse or if you develop any symptoms that are concerning to you. Prescriptions: No Action Incruse Ellipta 62.5 mcg/actuation blister with device 1 inh PO DAILY Qty: 30 6RF cholecalciferol (vitamin D3) [Vitamin D3] 25 mcg (1,000 unit) capsule 25 mcg PO QAM Qty: 90 2RF baricitinib 2 mg tablet 2 mg PO DAILY Qty: 30 2RF vitamin A palmitate 3,000 mcg (10,000 unit) tablet 10,000 unit PO DAILY Qty: 90 1RF pantoprazole 40 mg tablet,delayed release (DR/EC) 40 mg PO DAILY Qty: 90 1RF ascorbic acid (vitamin C) [Vitamin C] 500 mg tablet 1,000 mg PO QAM Qty: 180 2RF gabapentin 400 mg capsule 400 mg PO TID ferrous sulfate [FeroSul] 325 mg (65 mg iron) tablet 1 tab PO QAM albuterol sulfate [ProAir HFA] 90 mcg/actuation HFA aerosol inhaler 2 puff PO Q4-6H PRN (Reason: Wheezing) lidocaine [Lidoderm] 5 % adhesive patch,medicated 1 patch topical DAILY PRN (Reason: Pain) Rx Instructions: leave on most painful area for up to 12 hrs nicotine 21 mg/24 hr Patch 24 Hour 21 mg transdermal DAILY Qty: 30 0RF prednisone 10 mg tablet 10 mg PO DIRECTED Qty: 32 0RF Rx Instructions: Day 1 through 5 take 4pills then decrease by 1 pill every 2 days until you complete prescription docusate sodium 100 mg capsule 100 mg PO BEDTIME PRN (Reason: Constipation) alprazolam 1 mg tablet 1 mg PO BEDTIME PRN (Reason: Anxiety) Eliquis 5 mg tablet 5 mg PO BID acetaminophen 500 mg tablet 500 - 1,000 mg PO Q8-10H PRN (Reason: pain) Qty: 100 4RF ibuprofen 600 mg tablet 600 mg PO Q8H PRN (Reason: mild pain) bupropion HCl 150 mg tablet sustained-release 12 hr PO folic acid 1 mg tablet 1 mg PO QAM fluticasone propionate 50 mcg/actuation spray,suspension 2 spray intranasal QAM cilostazol 100 mg tablet 100 mg PO BID Qty: 180 1RF sertraline [Zoloft] 50 mg tablet 75 mg PO DAILY trazodone 150 mg tablet 150 mg PO BEDTIME PRN vitamin A 3,000 mcg (10,000 unit) capsule 1 cap PO QAM prednisone 20 mg tablet 20 mg PO DAILY ascorbic acid (vitamin C) [Vitamin C] 500 mg tablet 1,000 mg PO QAM benztropine 0.5 mg tablet 0.5 mg PO QAM oxycodone-acetaminophen 5-325 mg tablet 1 tab PO Q8H PRN (Reason: severe pain) famotidine 20 mg tablet 20 mg PO BID risperidone 1 mg tablet PO prednisone 2.5 mg tablet See Rx Instructions .ROUTE .COMPLEX Qty: 90 3RF Rx Instructions: take two in mornings and one in evenings methotrexate sodium 2.5 mg tablet 20 mg PO QWEEK Qty: 96 1RF
--- NOTE | 2023-09-21 11:26 | ECG_ITS ---
Test Reason : lightheadedness Blood Pressure : / mmHG Vent. Rate : 066 BPM Atrial Rate : 066 BPM P-R Int : 174 ms QRS Dur : 104 ms QT Int : 392 ms P-R-T Axes : 063 -49 063 degrees QTc Int : 410 ms Normal sinus rhythm Left anterior fascicular block Moderate voltage criteria for LVH, may be normal variant ( R in aVL , Remy product ) Septal infarct , age undetermined Abnormal ECG When compared with ECG of 25-JUN-2023 11:06, No significant change was found Referred By: Padmaja Calvert Electronically Signed By:OLGA KINGSTON MD
[2023-09-21 11:46] LABS: MANUAL DIFF FLAG NO
[2023-09-21 11:47] LABS: Basophils Percent Auto 0.2 % (0-2); Eosinophils Percent Auto 0.3 % (0-4); Hematocrit 36.4 % (37.0-47.0); Hemoglobin 12.2 g/dl (12.0-16.0); Imm Gran Abs Auto 0.01 X10*3/uL (0.00-0.03); Imm Gran Pct Auto 0.2 % (0.0-0.4); Lymphocytes Percent Auto 34.5 % (20-40); Mean Corpuscular HGB Conc 33.5 g/dl (31.0-35.0); Mean Corpuscular Hemoglobin 30.9 pg (27.0-33.0); Mean Corpuscular Volume 92.2 fL (80.0-98.0); Mean Platelet Volume 9.8 fL (9.4-12.3); Monocytes Absolute Auto 0.4 X10*3/uL (0.1-1.2); Monocytes Percent Auto 7.1 % (2-11); Neutrophils Absolute Auto 3.3 x10*3/uL (2.0-8.3); Neutrophils Percent Auto 57.7 % (45-73); Platelet Count 271 X10*3/uL (160-400); Red Blood Count 3.95 X10*6/uL (4.20-5.50); Red Cell Distribution Width 14.6 % (11.0-16.0); White Blood Count 5.8 X10*3/uL (4.8-10.8)
[2023-09-21 11:55] LABS: Appearance Urine Cloudy; Bacteria Urine 1+ (None Seen); Color Urine Orange; Glucose Urine UA Negative (Negative); Hyaline Casts Urine 0-2 /LPF (0-2); Leukocyte Esterase Urine Trace (Negative); Nitrite Urine Negative (Negative); PH 5.5 (5.0-9.0); RBC Urine >20 /HPF (0-2); Specific Gravity - Urine 1.025 (1.005-1.025); UACC Culture Trigger YES; UMIC TRIGGER UACC YES; Urine Blood Large (3+) (Negative); Urine Ketones Trace mg/dL (Negative); Urine Protein Trace mg/dL (Neg-Trace)
[2023-09-21 11:56] LABS: INTERNATIONAL NORM RATIO 0.9 (0.9-1.1); Prothrombin Time 11.3 SEC (11.1-13.3)
[2023-09-21 12:01] LABS: Alanine Aminotransferase 9 U/L (0-31); Albumin Level 4.3 g/dL (3.5-5.0); Alkaline Phosphatase 55 U/L (39-117); Anion Gap 12 (12-20); Aspartate Amino Transferase 18 U/L (5-31); Bilirubin Direct 0.1 mg/dL (0.0-0.5); Bilirubin Total 0.3 mg/dL (0.0-1.0); Blood Urea Nitrogen 11 mg/dL (9-16); Calcium 9.5 mg/dL (8.4-10.2); Carbon Dioxide 24 mmol/L (22-29); Chloride 108 mmol/L (96-108); Estimated Glomerular Filt Rate > 60; Glucose Random 86 mg/dL (60-115); Magnesium 2.1 mg/dL (1.6-2.6); Potassium 3.6 mmol/L (3.3-5.1); Sodium 140 mmol/L (135-145); Total Protein 8.7 g/dL (6.5-8.0)
[2023-09-21 12:06] LABS: B Type Natriuretic Peptide 46 pg/mL (<100)
[2023-09-21 12:10] LABS: Troponin-I High Sensitivity < 2.7 ng/L (<3.5-17.0)
[2023-09-21] MEDS: Acetaminophen 325 MG TABLET 975 MG PO (18:09)
[2023-09-21] MEDS: oxyCODONE HCl Immed Release 5 MG TABLET 10 MG PO (18:09)
== END 2023-09-21 18:50 | disposition home or self-care (01) ==
PROVIDERS: Physician Assistant; Emergency Provider Emergency Medicine Emergency Medical Services; PCP General Practice
DX: U07.1 COVID-19 (principal); R42 Dizziness and giddiness; M54.50 Low back pain, unspecified; F17.210 Nicotine dependence, cigarettes, uncomplicated; Z85.29 Personal history of malignant neoplasm of other respiratory and intrathoracic organs; Z85.830 Personal history of malignant neoplasm of bone; Z85.118 Personal history of other malignant neoplasm of bronchus and lung
CPT/HCPCS: 36415; 71046; 80048; 80076; 81001; 83735; 83880; 84484; 85025; 85610; 87086; 93005; 99283; 99285

== ENCOUNTER → 2023-09-21 11:26 | Outpatient (BNV) | payer MEDICAID, SELFPAY | PROVIDERS: PCP General Practice; Visit Provider Internal Medicine Cardiovascular Disease | DX: R94.31 Abnormal electrocardiogram [ECG] [EKG] (principal) | CPT/HCPCS: 93010 ==

== ENCOUNTER 2023-09-29 11:14 | Outpatient (REF) | payer MEDICAID, SELFPAY ==
--- NOTE | ~2023-09-29 | XR_ITS ---
EXAMINATION: XR RIGHT FOOT XR LEFT HAND CLINICAL INFORMATION: Right heel pain. Left hand pain. Known rheumatoid arthritis. COMPARISON: 03/04/2023 and 09/16/2022 TECHNIQUE: PA, lateral and oblique views of the left hand. AP, lateral and oblique views of the right foot. FINDINGS: RIGHT FOOT: Alignment is anatomic. Joint spaces are maintained. A small well corticated round ossific density seen proximal to the navicular is stable. No acute displaced fracture or dislocation. Tiny plantar calcaneal spur. LEFT HAND: Alignment is anatomic. There is joint space narrowing of the third and fifth DIP joints. No bony erosions. No soft tissue calcifications. No displaced fracture or dislocation. XR/XR foot RT 2V IMPRESSION: No acute abnormality.
--- NOTE | ~2023-09-29 | XR_ITS ---
EXAMINATION: XR RIGHT FOOT XR LEFT HAND CLINICAL INFORMATION: Right heel pain. Left hand pain. Known rheumatoid arthritis. COMPARISON: 03/04/2023 and 09/16/2022 TECHNIQUE: PA, lateral and oblique views of the left hand. AP, lateral and oblique views of the right foot. FINDINGS: RIGHT FOOT: Alignment is anatomic. Joint spaces are maintained. A small well corticated round ossific density seen proximal to the navicular is stable. No acute displaced fracture or dislocation. Tiny plantar calcaneal spur. LEFT HAND: Alignment is anatomic. There is joint space narrowing of the third and fifth DIP joints. No bony erosions. No soft tissue calcifications. No displaced fracture or dislocation. XR/XR hand LT min 3V IMPRESSION: No acute abnormality.
[2023-09-30 19:24] LABS: C. trachomatis RNA TMA NOT DETECTED (NOT DETECTED); Candida glabrata RNA NOT DETECTED (NOT DETECTED); Candida species RNA NOT DETECTED (NOT DETECTED); N. gonorrhoeae RNA TMA NOT DETECTED (NOT DETECTED); Trichomonas vaginalis RNA NOT DETECTED (NOT DETECTED)
[2023-10-06 09:33] LABS: HPV mRNA E6/E7 rflx Not Detected (Not Detected)
== END 2023-09-29 11:15 | disposition home or self-care (01) ==
LOC: HO.HHCX 11:14
PROVIDERS: Visit Provider General Practice
DX: R22.32 Localized swelling, mass and lump, left upper limb (principal); M79.671 Pain in right foot; Z12.4 Encounter for screening for malignant neoplasm of cervix
CPT/HCPCS: 36415; 73130; 73620; 81513; 87481; 87491; 87591; 87624; 87661; 88142

== ENCOUNTER 2023-10-04 09:32 | Outpatient (AMB) | payer MEDICAID, SELFPAY ==
--- NOTE | 2023-10-04 11:19 | A.OFFVIS_ITS ---
Intake Vital Signs 10/04/23 11:20 Height 5 ft 2 in Weight 206 lb 5.643 oz BMI 37.7 BP 114/62 Blood Pressure Location Rt brachial Position Sitting Pulse 71 Pulse Source Pulse Oximeter Pulse Oximetry (%) 97 Oxygen Delivery Method Room Air Intake Visit Reasons: ra with dr octavio Najera Note: Pt last seen by Dr Ram on 07/06/23 presents today for follow up and test results. Recently seen in ED. She was started on olumiant and reports has not been experiencing much in terms of swelling. She mentions she needs refill for script of 2.5 mg, not sure if she means MTX or prednisone. Pt reports she is under a lot of stress and depression because of a housing situation. She does not feel safe Load Dispatcher Required: No Load Dispatcher Name: Eduardo [id number] Information Interpreted: clinical only Accompanied by: Self / Same As Patient Allergies almond [ALMONDS] Allergy (Severe, Verified 10/04/23 11:30) ANAPHYLAXIS adhesive tape [ADHESIVE TAPE] Allergy (Intermediate, Verified 10/04/23 11:30) RASH morphine [MORPHINE] Allergy (Intermediate, Verified 10/04/23 11:30) GI UPSET, difficulty breathing tramadol [TRAMADOL] Adverse Reaction (Unknown, Verified 10/04/23 11:30) NAUSEA & VOMITING Medication List - Last Reconciled 10/04/23 by Simon Elkins MD acetaminophen 500 - 1,000 mg (1 - 2 x 500 mg) PO Q8-10H PRN albuterol sulfate 90 mcg/actuation (ProAir HFA) 2 puffs PO Q4-6H PRN alprazolam 1 mg PO BEDTIME PRN apixaban (Eliquis) 5 mg PO BID ascorbic acid (vitamin C) (Vitamin C) 1,000 mg (2 x 500 mg) PO QAM benztropine 0.5 mg PO QAM bupropion HCl mg PO cholecalciferol (vitamin D3) (Vitamin D3) 25 mcg PO QAM cilostazol 100 mg PO BID docusate sodium 100 mg PO BEDTIME PRN famotidine 20 mg PO BID ferrous sulfate (FeroSul) 1 tab PO QAM fluticasone propionate 50 mcg/actuation 2 sprays intranasal QAM folic acid 1 mg PO QAM gabapentin 400 mg PO TID ibuprofen 600 mg PO Q8H PRN lidocaine 5% (Lidoderm) 1 patch topical DAILY PRN methotrexate sodium 20 mg (8 x 2.5 mg) PO QWEEK nicotine 21 mg transdermal DAILY Olumiant (baricitinib) 2 mg PO DAILY NS oxycodone-acetaminophen 5-325 mg 1 tab PO Q8H PRN pantoprazole 40 mg PO DAILY prednisone 10 mg PO DIRECTED prednisone take two in mornings and one in evenings prednisone 20 mg PO DAILY risperidone mg PO sertraline (Zoloft) 75 mg PO DAILY trazodone 150 mg PO BEDTIME PRN umeclidinium 62.5 mcg/actuation (Incruse Ellipta) 1 inh PO DAILY vitamin A 1 cap PO QAM vitamin A palmitate 10,000 units PO DAILY HPI HPI Comments History of Present Illness Details 48-year-old female with seropositive nod ular RA returns for follow-up. She started Olumiant about 2 months ago. She is on prednisone 2.5 mg daily and methotrexate 20 mg weekly. She states that she has doing better overall but she has been having left wrist pain and left middle finger pain. She has also been having right ankle pain. She had a COVID infection about 3 weeks ago that self-resolved in about a week. most recent hx by Dr. Ram 07/2023:The patient with RA returns today with complaints of pain in the right wrist. Her son accompanies her today and translates for us. She had called us earlier in the week with a flare-up of symptoms in the elbow, wrist and shoulder on the right. At her last visit a month ago I had prescribed baricitinib but for some reason she has yet to receive it. She tells me now the delivery is for tomorrow or the next day. She remains on ibuprofen 800 b.i.d., acetaminophen 1 or 2 b.i.d., methotrexate 20 mg weekly, folic acid 1 mg daily, gabapentin 400 mg t.i.d. and Percocet prescribed by her primary doctor t.i.d. When she had called earlier this week we had her increase her prednisone up to 10 b.i.d. from 5 mg b.i.d. The other joints that hurt her today include the right hand, both knees - left greater than right, and right ankle.She has an orth0 visit latrer today to discuss the left knee. [facility] Medical History PAD (peripheral artery disease) Skin lesion Knee pain, left Seropositive rheumatoid arthritis Anxiety Achilles tendinitis Superficial femoral artery occlusion Depression Hx of peripheral pulmonary artery stenosis History of chemotherapy Cancer of heart Bone cancer Lung cancer Bleeding hemorrhoid Degeneration, intervertebral disc, lumbar Chronic GERD Degeneration of intervertebral disc at C4-C5 level Osteoarthritis of spine with radiculopathy, lumbar region Fibromyalgia Esophageal dysphagia Vitamin D deficiency Systemic lupus erythematosus Seropositive rheumatoid arthritis Rheumatoid arthritis involving multiple sites Gallstones Stress incontinence in female Nocturia Urgency-frequency syndrome De Quervain's disease (tenosynovitis) Depressive disorder Acute arthritis Hodgkin disease Surgical History History of surgical removal of skin lesion (~07/13/23) History of angioplasty of vein History of biopsy H/O tubal ligation Hx of endoscopy Hx laparoscopic cholecystectomy Hx of colonoscopy History of esophagogastroduodenoscopy (EGD) History of repair of inguinal hernia History of lymph node dissection of left axilla Family History Maternal Grandmother Ovarian cancer Social History Household Members: Spouse Housing: Apartment Are you a primary healthcare specialist to a significant other at home: No Do 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 have 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 or other home services: Yes (artist color separation) Alcohol intake: never Comment: lozenge given [id number] Patient Tobacco Use Status: Current everyday Tobacco user Tobacco use type: Cigarette Cigarette Packs Per Day: 1 Substance Use Type: Marijuana Advance Directives Date on File: 09/23/20 service: No Current occupational status: disabled 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 of [employer] Reports arthralgias, Reports joint swelling, Reports limited range of motion and Reports stiffness Physical Exam Vital Signs: Last Vital Signs Pulse 71 10/04/23 11:20 BP 114/62 10/04/23 11:20 Pulse Ox 97 10/04/23 11:20 Oxygen Delivery Method Room Air 10/04/23 11:20 BMI result Body Mass Index 37.7 Const General: cooperative, healthy appearing and comfortable Nutritional Appearance: obese morbidly obese Orientation/consciousness: patient oriented x3 Limitations: no limitations HEENT Head: Yes normocephalic and Yes atraumatic Resp Effort & Inspection: normal respiratory effort and able to speak in complete sentences Skin Other: Nodules on elbows Neuro General: patient oriented x3 Extrem Other: No active synovitis right hand & wrist elbow Mild left wrist swelling and tenderness along the left 3rd extensor tendon left 3rd MCP, PIP and DIP tenderness Pain with any range of motion of left wrist No elbow pain with full range of motion bilaterally No shoulder pain with full range of motion bilaterally No knee pain, swelling or tenderness or pain with any range of motion Right ankle swelling and tenderness Office Procedures Joint Injection/Drain Joint Injection/Drain Details: Left wrist Prep: site was prepped using sterile technique and ethochloride spray was applied Injected: 40 mg of, Kenalog and other (0.1 mL of 1% lidocaine) Procedure: The patient tolerated the procedure well Coding Details: The area over the dorsum of the left wrist was prepped with ChloraPrep, then using a 27 gauge needle 20 mg of Kenalog mixed with 0.1 cc of 1% lidocaine was injected into the wrist joint space. The patient tolerated the procedure well with no immediate adverse events - Medium joint Procedure code (CPT) selection complete Assessment & Plan Assessment & Plan (1) Seropositive rheumatoid arthritis: Comment: RF++CCP++ regularly requiring prednisone. methotrexate and hydroxychloroquine ?2019 Xeljanz 05/2020-08/2020(ineffective) 2020 methotrexate and Humira(HCQ stopped - ?vision changes). 06/2022 Humira stopped due to poor repsonse 06/2022 methotrexate and Actemra 12/2022: Actemra stopped by the patient. She had some leg swelling as well. 03/10/2023 and 03/24/23: 1 g on each day rituximab administered Olumiant 08/2023 effective Code(s): M05.9 - Rheumatoid arthritis with rheumatoid factor, unspecified Plan: This is a 48-year-old female with seropositive nodular RA who presents for follow-up. She is on prednisone 2.5 mg daily, methotrexate 20 mg weekly, Olumiant 2 mg daily, folic acid 1 mg daily. Patient is doing better overall. Him today she had left wrist swelling, left 3rd extensor tendon tenosynovitis and right ankle synovitis. With patient's consent, left wrist was injected with Kenalog today. Continue current meds as prescribed. Advised patient that if she continues to have right ankle pain and swelling, she should contact the office and will likely prescribe a prednisone taper There is some mildly increased risk of thromboembolic events with autoimmune especially given patient's history of thrombosis. Patient however is on Eliquis regularly. Dr. Ram explained this risk before with patient. I agree with Dr. Ram that the risk of DVT is substantially lowered when on Eliquis. In any case, patient has failed or could not tolerate multiple DMARDs for her RA and she continues to have synovitis. She has required large doses of prednisone. Which is also associated with other long-term side effects. Labs before next visit in 2 months (2) correction methotrexate user: Code(s): Z79.899 - Other shelter (current) drug therapy Plan: Monitor safety labs (3) High risk medication use: Code(s): Z79.899 - Other rat exterminator (current) drug therapy Plan: Monitor safety labs. Advised patient to call the clinic if she develops any signs of fever or infection (4) Systemic lupus erythematosus: Comment: January 2022: Anti SAWYER negative. Rheumatoid factor and CCP antibody markedly positive. This looks more like picture of seropositive RA. Code(s): M32.9 - Systemic lupus erythematosus, unspecified Qualifiers: Systemic lupus erythematosus type: unspecified Systemic lupus erythematosus organ involvement: unspecified Qualified Code(s): M32.9 - Systemic lupus erythematosus, unspecified Plan: Will check SLE activity markers before next visit Plan I spent 47 minutes reviewing patient's chart, evaluating patient, ordering diagnostic workup, counseling patient and documenting in the chart Orders: Orders Anti DNA DS Antibody 2 Months M32.9 - Systemic lupus erythematosus, unspecified DNA Double Stranded-Crithidia 2 Months M32.9 - Systemic lupus erythematosus, unspecified Protein Creatinine Ratio, Ur 2 Months M32.9 - Systemic lupus erythematosus, unspecified UA w Microscopic 2 Months M32.9 - Systemic lupus erythematosus, unspecified AMB Joint Injection/Aspiration Today M05.9 - Rheumatoid arthritis with rheumatoid factor, unspecified Complete Blood Count Auto Diff 2 Months M05.9 - Rheumatoid arthritis with rheumatoid factor, unspecified Comprehensive Met. Panel 2 Months M05.9 - Rheumatoid arthritis with rheumatoid factor, unspecified C Reactive Protein 2 Months M05.9 - Rheumatoid arthritis with rheumatoid factor, unspecified Erythrocyte Sedimentation Rate 2 Months M05.9 - Rheumatoid arthritis with rheumatoid factor, unspecified Hepatitis A,B,C Profile 2 Months Z11.59 - Encounter for screening for other viral diseases T Spot TB 2 Months Z11.7 - Encounter for testing for latent tuberculosis infection Complement C3 2 Months M32.9 - Systemic lupus erythematosus, unspecified Complement C4 2 Months M32.9 - Systemic lupus erythematosus, unspecified Medications: New folic acid 1 mg PO QAM 90 tabs 1RF Changed From prednisone take two in mornings and one in evenings 90 tabs 3RF M05.9 - Rheumatoid arthritis with rheumatoid factor, unspecified To prednisone 2.5 mg PO DAILY 90 tabs 1RF M05.9 - Rheumatoid arthritis with rheumatoid factor, unspecified Refilled methotrexate sodium 20 mg (8 x 2.5 mg) PO QWEEK 96 tabs 1RF Discontinued prednisone Day 1 through 5 take 4pills then decrease by 1 pill every 2 days until you complete prescription Discontinued Reason: Patient no longer taking 10 mg PO DIRECTED 32 tabs 0RF Coding Level of Care Code Est Pt Level 5 (02109) Diagnoses Seropositive rheumatoid arthritis M05.9 rat exterminator 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 CPT Codes Coding - 20475 Medium joint: 84694 - Medium joint ([id number])
[2023-10-04 11:20] VITALS: BP 114/62; PULSE 71; O2SAT 97; BMI 37.7
== END 2023-10-04 12:17 | disposition home or self-care (01) ==
LOC: HO.RHE 09:32
PROVIDERS: PCP General Practice; Visit Provider Student in an Organized Health Care Education/Training Program
DX: M05.79 Rheumatoid arthritis with rheumatoid factor of multiple sites without organ or systems involvement (principal); M32.9 Systemic lupus erythematosus, unspecified; Z79.899 Other long term (current) drug therapy
CPT/HCPCS: 20605; 99215

== ENCOUNTER → 2023-10-04 09:32 | Outpatient (BNVA) | payer MEDICAID, SELFPAY | PROVIDERS: PCP General Practice; Visit Provider Student in an Organized Health Care Education/Training Program | DX: M05.9 Rheumatoid arthritis with rheumatoid factor, unspecified (principal); M32.9 Systemic lupus erythematosus, unspecified; Z79.899 Other long term (current) drug therapy | CPT/HCPCS: 20605; 99212 ==

== ENCOUNTER 2023-10-09 10:32 | Emergency (ER) | payer MEDICAID, SELFPAY ==
--- NOTE | ~2023-10-09 | US_ITS ---
EXAMINATION: NONINVASIVE ASSESSMENT OF THE ARTERIES OF BOTH LOWER EXTREMITIES INCLUDING BILATERAL LOWER EXTREMITY DUPLEX. CLINICAL INFORMATION: History of PAD, bilateral lower extremity pain COMPARISON: Noninvasive exam on 06/22/2023 TECHNIQUE: duplex Doppler techniques with wave form analysis and measurement of velocities in the common femoral, profunda femoral, superficial femoral, popliteal, tibial and peroneal arteries. The study was performed only at rest. FINDINGS: RIGHT LEG Common femoral artery: 170 cm/s, monophasic Profunda femoris artery: 258 cm/s, monophasic Superficial femoral artery (proximal): 134 cm/s, monophasic Superficial femoral artery (mid): 134 cm/s, monophasic Superficial femoral artery (distal): Occluded Proximal Popliteal artery: Occluded Mid posterior tibial artery: 67 cm/s, monophasic LEFT LEG: Common femoral artery: 93 cm/s, Multiphasic Profunda femoris artery: 79 cm/s, monophasic Superficial femoral artery (proximal): 76 cm/s, monophasic Superficial femoral artery (mid): 65 cm/s, monophasic Superficial femoral artery (distal): 65 cm/s, monophasic Proximal Popliteal artery: 28 cm/s, monophasic Mid posterior tibial artery: 52 cm/s, monophasic US/US arterial duplex LE BI IMPRESSION: 1. Monophasic flow throughout the bilateral lower extremities suggesting inflow disease. 2. Redemonstration of the occluded stent in the mid and distal right SFA
[2023-10-09 10:49] VITALS: BP 112/76; PULSE 87; RESP 18; TEMP 36.6; O2SAT 98; BMI 32.3
[2023-10-09 12:15] LABS: MANUAL DIFF FLAG NO
[2023-10-09 12:19] LABS: Basophils Percent Auto 0.2 % (0-2); Eosinophils Percent Auto 0.5 % (0-4); Hematocrit 36.9 % (37.0-47.0); Imm Gran Abs Auto 0.02 X10*3/uL (0.00-0.03); Imm Gran Pct Auto 0.3 % (0.0-0.4); Lymphocytes Absolute Auto 1.3 X10*3/uL (1.2-4.9); Lymphocytes Percent Auto 19.4 % (20-40); Mean Corpuscular HGB Conc 32.5 g/dl (31.0-35.0); Mean Corpuscular Hemoglobin 30.5 pg (27.0-33.0); Mean Corpuscular Volume 93.7 fL (80.0-98.0); Mean Platelet Volume 9.9 fL (9.4-12.3); Monocytes Absolute Auto 0.4 X10*3/uL (0.1-1.2); Monocytes Percent Auto 6.8 % (2-11); Neutrophils Absolute Auto 4.7 x10*3/uL (2.0-8.3); Neutrophils Percent Auto 72.8 % (45-73); Platelet Count 284 X10*3/uL (160-400); Red Blood Count 3.94 X10*6/uL (4.20-5.50); White Blood Count 6.4 X10*3/uL (4.8-10.8)
[2023-10-09 12:22] LABS: INTERNATIONAL NORM RATIO 0.9 (0.9-1.1); Prothrombin Time 11.4 SEC (11.1-13.3)
[2023-10-09 12:33] LABS: Anion Gap 12 (12-20); Blood Urea Nitrogen 12 mg/dL (9-16); Calcium 9.4 mg/dL (8.4-10.2); Carbon Dioxide 25 mmol/L (22-29); Chloride 107 mmol/L (96-108); Creatinine Clr Calc Pharmacy 105.1; Estimated Glomerular Filt Rate > 60; Glucose Random 87 mg/dL (60-115); Potassium 3.7 mmol/L (3.3-5.1); Sodium 140 mmol/L (135-145)
--- NOTE | 2023-10-09 13:03 | ED_ITS ---
HPI - General Adult General Chief complaint: Extremity Injury, Lower Stated complaint: History of blood clots, Bruised leg Time Seen by Provider: 10/09/23 12:54 Source: patient Mode of arrival: ambulatory Limitations: no limitations History of Present Illness HPI narrative: Patient is a 48-year-old female who presents to the emergency department for evaluation of bilateral lower extremity pain. Reports that this began last night, pain from her baseline and describes a pulling sensation in the bilateral feet when she is weight-bearing. Reports she is unable to bear weight unless she has the assistance of her when he leaves for work she is ultimately bed-bound. She did not take her pain medication today because she anticipated coming to the emergency department. She expresses a history of blood clots to the legs and states that she has been compliant with her Eliquis. She denies any numbness, tingling, swelling to the lower extremities. Denies any fevers, chills, chest pain, shortness of breath, rashes, lesions, wounds, redness to the extremities. Denies any precipitating injury. Related Data Home Medications Medication Instructions Recorded Confirmed albuterol sulfate 90 mcg/actuation 2 puff PO Q4-6H PRN Wheezing 10/02/21 10/04/23 aerosol inhaler (ProAir HFA) ferrous sulfate 325 mg (65 mg 1 tab PO QAM 10/02/21 10/04/23 iron) tablet (FeroSul) gabapentin 400 mg capsule 400 mg PO TID 10/22/21 10/04/23 docusate sodium 100 mg capsule 100 mg PO BEDTIME PRN Constipation 04/19/22 10/04/23 apixaban 5 mg tablet (Eliquis) 5 mg PO BID 09/22/22 10/04/23 alprazolam 1 mg tablet 1 mg PO BEDTIME PRN Anxiety 12/10/22 10/04/23 benztropine 0.5 mg tablet 0.5 mg PO QAM 01/17/23 10/04/23 lidocaine 5 % topical patch 1 patch topical DAILY PRN Pain 04/20/23 10/04/23 (Lidoderm) famotidine 20 mg tablet 20 mg PO BID 05/16/23 10/04/23 oxycodone-acetaminophen 5 mg-325 1 tab PO Q8H PRN severe pain 05/16/23 10/04/23 mg tablet risperidone 1 mg tablet mg PO 05/16/23 10/04/23 bupropion HCl 150 mg tablet,12 hr mg PO 06/09/23 10/04/23 sustained-release fluticasone propionate 50 2 spray intranasal QAM 06/09/23 10/04/23 mcg/actuation nasal spray,suspension ibuprofen 600 mg tablet 600 mg PO Q8H PRN mild pain 06/09/23 10/04/23 sertraline 50 mg tablet (Zoloft) 75 mg PO DAILY 07/13/23 10/04/23 trazodone 150 mg tablet 150 mg PO BEDTIME PRN 07/13/23 10/04/23 vitamin A 3,000 mcg (10,000 unit) 1 cap PO QAM 07/13/23 10/04/23 capsule Previous Rx's Medication Instructions Recorded acetaminophen 500 mg tablet 500 - 1,000 mg (1 - 2 x 500 mg) PO 09/22/22 Q8-10H PRN pain #100 tabs umeclidinium 62.5 mcg/actuation 1 inh PO DAILY #30 ea 11/29/22 blister powder for inhalation (Incruse Ellipta) cholecalciferol (vitamin D3) 25 25 mcg PO QAM #90 caps 02/28/23 mcg (1,000 unit) capsule (Vitamin D3) nicotine 21 mg/24 hr daily 21 mg transdermal DAILY #30 ea 04/21/23 transdermal patch vitamin A palmitate 3,000 mcg 10,000 unit PO DAILY #90 tabs 06/15/23 (10,000 unit) tablet cilostazol 100 mg tablet 100 mg PO BID #180 tabs 07/14/23 pantoprazole 40 mg tablet,delayed 40 mg PO DAILY #90 tabs 08/09/23 release ascorbic acid (vitamin C) 500 mg 1,000 mg (2 x 500 mg) PO QAM #180 09/06/23 tablet (Vitamin C) tabs Olumiant 2 mg tablet (baricitinib) 2 mg PO DAILY #30 tabs 09/26/23 folic acid 1 mg tablet 1 mg PO QAM #90 tabs 10/04/23 methotrexate sodium 2.5 mg tablet 20 mg (8 x 2.5 mg) PO QWEEK #96 10/04/23 tabs prednisone 2.5 mg tablet 2.5 mg PO DAILY #90 tabs 10/05/23 Allergies Allergy/AdvReac Type Severity Reaction Status Date / Time almond [ALMONDS] Allergy Severe ANAPHYLAXIS Verified 10/09/23 10:48 adhesive tape [ADHESIVE TAPE] Allergy Intermediate RASH Verified 10/09/23 10:48 morphine [MORPHINE] Allergy Intermediate GI UPSET, Verified 10/09/23 10:48 difficulty breathing tramadol [TRAMADOL] AdvReac Unknown NAUSEA & Verified 10/09/23 10:48 VOMITING PMFSH Past Medical History Medical History PAD (peripheral artery disease) Skin lesion Knee pain, left Seropositive rheumatoid arthritis Anxiety Achilles tendinitis Superficial femoral artery occlusion Depression Hx of peripheral pulmonary artery stenosis History of chemotherapy Cancer of heart Bone cancer Lung cancer Bleeding hemorrhoid Degeneration, intervertebral disc, lumbar Chronic GERD Degeneration of intervertebral disc at C4-C5 level Osteoarthritis of spine with radiculopathy, lumbar region Fibromyalgia Esophageal dysphagia Vitamin D deficiency Systemic lupus erythematosus Seropositive rheumatoid arthritis Rheumatoid arthritis involving multiple sites Gallstones Stress incontinence in female Nocturia Urgency-frequency syndrome De Quervain's disease (tenosynovitis) Depressive disorder Acute arthritis Hodgkin disease Surgical History History of surgical removal of skin lesion (~07/13/23) History of angioplasty of vein History of biopsy H/O tubal ligation Hx of endoscopy Hx laparoscopic cholecystectomy Hx of colonoscopy History of esophagogastroduodenoscopy (EGD) History of repair of inguinal hernia History of lymph node dissection of left axilla Family History Family History Maternal Grandmother Ovarian cancer Social History Social History Household Members: Spouse Housing: Apartment Are you a primary rn critical care to a significant other at home: No 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) Alcohol intake: never Comment: lozenge given [id number] Patient Tobacco Use Status: Current everyday Tobacco user Tobacco use type: Cigarette Cigarette Packs Per Day: 1 Smoked in Last 30 Days: Yes Use of substances other than those prescribed or required for medical reasons: Yes Substance Use Type: Marijuana Substance Use Frequency: Weekly Advance Directives: No Advance Directives Information Provided: No Advance Directives Date on File: 09/23/20 Patient : No service: No Current occupational status: disabled 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 No acute distress.?Normal affect. Eyes: Pupils equal, round and reactive to light.? ENT: Pharynx normal.?? Neck: Normal inspection.? Neck supple.?? CVS: Heart sounds normal. Normal heart rate and rhythm.? Pulses normal.?? Respiratory: No respiratory distress.? Lung sounds clear to auscultation bilaterally?? Abdomen: Soft and non-tender. Normoactive bowel sounds. ? Skin: Skin warm and dry.? Normal skin color.? Extremities: No lower extremity edema.? Diffuse lower extremity tenderness upon palpation. No erythema. No warmth. 2+ DP/PT pulse bilaterally. Neuro: Moves all extremities spontaneously. Sensation intact bilaterally. . No focal neuro deficits. Ambulates with normal steady gait. Course Reevaluation(s) Reevaluation #1: Arterial ultrasound pending at this time, signed out to night provider, Eamon Read NP pending US results and PT/CM evaluation as noted in MDM Time: 16:26 Reevaluation #2: Patient received in sign out pending ultrasound. No new concerning findings on final read. Patient offered PT evaluation which she declined stating that she would not be interested in short term rehab. Instructed patient to follow up with primary care provider on Tuesday and to take her medications as prescribed. Return precautions discussed. Patient verbalized understanding of and agreement with plan of care. Time: 16:34 Medications Administered Discontinued Medications Generic Name Dose Route Start Last Admin Trade Name Freq PRN Reason Stop Dose Admin Gabapentin 400 mg 10/09/23 13:36 10/09/23 13:50 Gabapentin 400 Mg Capsule PO 10/09/23 13:37 400 mg ONCE ONE Administration Oxycodone HCl 5 mg 10/09/23 13:36 10/09/23 13:50 Oxycodone Hcl Immed Release 5 Mg Tablet PO 10/09/23 13:37 5 mg ONCE ONE Administration Medical Decision Making Medical Decision Making MDM Narrative: Patient is a 48-year-old female with past medical history of DVT on Eliquis, PAD, Hodgkin's disease, rheumatoid arthritis, lupus, DJD, lumbar radiculopathy, fibromyalgia, chronic pain management with Percocet presenting to the emergency department for evaluation of acute on chronic bilateral lower extremity pain without any precipitating injury. There is no pallor, paresthesia, paralysis, pulselessness, pokilothermia to suggest arterial occlusion, physical examination is not consistent with venous occlusion and again she is anticoagulated. Obtain basic labs in addition will obtain arterial duplex ultrasound of bilateral lower extremities have a lower suspicion for ischemic limb. She will receive her home pain medication dosages. When asked, she states that if her workup today is overall unremarkable for any acute findings she does not feel well enough or stable enough to return home as she is having difficulty ambulating despite the use of her cane. We spoke about physical therapy evaluation and determination as to whether the VNA/home PT versus STR would be indicated and she is agreeable to having this evaluation. Differential Diagnosis Differential Diagnoses: The differential diagnosis associated with the presentation includes (Anticoagulated, less likely acute DVT. Appear consistent with cellulitis. No evidence of osteomyelitis. Maybe secondary to fibromyalgia/lumbar arthropathy, rheumatoid arthritis/lupus flare, claudication) Admission/Observation Consideration of admission/observation: Escalation of care including admission/observation considered (See narrative above in course narrative for further detail) Lab Data MDM Lab Attestation statement: I reviewed the patient's lab results. CBC is without leukocytosis, H&H 12.0/36.9. Coags within normal range. No electrolyte abnormality. No SUMMER. 10/09/23 11:53 10/09/23 11:53 Labs: Lab Results 10/09/23 Range/Units 11:53 WBC 6.4 (4.8-10.8) X10*3/uL RBC 3.94 L (4.20-5.50) X10*6/uL Hgb 12.0 (12.0-16.0) g/dl Hct 36.9 L (37.0-47.0) % MCV 93.7 (80.0-98.0) fL MCH 30.5 (27.0-33.0) pg MCHC 32.5 (31.0-35.0) g/dl RDW 15.0 (11.0-16.0) % Plt Count 284 (160-400) X10*3/uL MPV 9.9 (9.4-12.3) fL Immature Gran % (Auto) 0.3 (0.0-0.4) % Neut % (Auto) 72.8 (45-73) % Lymph % (Auto) 19.4 L (20-40) % Stewart % (Auto) 6.8 (2-11) % Eos % (Auto) 0.5 (0-4) % Baso % (Auto) 0.2 (0-2) % Lymph # (Auto) 1.3 (1.2-4.9) X10*3/uL Stewart # (Auto) 0.4 (0.1-1.2) X10*3/uL Eos # (Auto) 0.0 (0.0-0.4) X10*3/uL Baso # (Auto) 0.0 (0.0-0.2) X10*3/uL Abs Immat Gran (auto) 0.02 (0.00-0.03) X10*3/uL Absolute Neuts (auto) 4.7 (2.0-8.3) x10*3/uL Absolute Nucleated RBC 0.000 (0.0-0.012) X10*3/uL Nucleated RBC % (auto) 0.0 (0.0-0.2) /100WBC PT 11.4 (11.1-13.3) SEC INR 0.9 (0.9-1.1) Sodium 140 (135-145) mmol/L Potassium 3.7 (3.3-5.1) mmol/L Chloride 107 (96-108) mmol/L Carbon Dioxide 25 (22-29) mmol/L Anion Gap 12 (12-20) BUN 12 (9-16) mg/dL Creatinine 0.75 (0.5-1.4) mg/dL Estim Creat Clear Calc 105.1 Estimated GFR > 60 Random Glucose 87 (60-115) mg/dL Calcium 9.4 (8.4-10.2) mg/dL Independent Historian Clinical information obtained from an independent historian. History obtained from or confirmed by: Spouse External Record Review External record reviewed: Outpatient record Prescription Management I considered prescription management with: Pain Medication Discharge Plan Discharge Clinical Impression: PAD (peripheral artery disease) Patient Disposition: Home, Self-Care Instructions: Peripheral Artery Disease (ED), Peripheral Vascular Disease (ED) Additional Instructions: You were evaluated in the emergency department today for leg pain. You testing did not show evidence of conditions requiring emergent medical treatment at this time. You were offered a physical therapy evaluation which you declined. Please follow up with your primary care provider on Tuesday. Return to the emergency department if you develop new weakness, numbness, tingling, fever, or any other concerning symptoms. Take your medications as prescribed. Prescriptions: No Action Incruse Ellipta 62.5 mcg/actuation blister with device 1 inh PO DAILY Qty: 30 6RF cholecalciferol (vitamin D3) [Vitamin D3] 25 mcg (1,000 unit) capsule 25 mcg PO QAM Qty: 90 2RF vitamin A palmitate 3,000 mcg (10,000 unit) tablet 10,000 unit PO DAILY Qty: 90 1RF pantoprazole 40 mg tablet,delayed release (DR/EC) 40 mg PO DAILY Qty: 90 1RF ascorbic acid (vitamin C) [Vitamin C] 500 mg tablet 1,000 mg PO QAM Qty: 180 2RF Olumiant 2 mg tablet 2 mg PO DAILY Qty: 30 0RF prednisone 2.5 mg tablet 2.5 mg PO DAILY Qty: 90 0RF gabapentin 400 mg capsule 400 mg PO TID ferrous sulfate [FeroSul] 325 mg (65 mg iron) tablet 1 tab PO QAM albuterol sulfate [ProAir HFA] 90 mcg/actuation HFA aerosol inhaler 2 puff PO Q4-6H PRN (Reason: Wheezing) lidocaine [Lidoderm] 5 % adhesive patch,medicated 1 patch topical DAILY PRN (Reason: Pain) Rx Instructions: leave on most painful area for up to 12 hrs nicotine 21 mg/24 hr Patch 24 Hour 21 mg transdermal DAILY Qty: 30 0RF docusate sodium 100 mg capsule 100 mg PO BEDTIME PRN (Reason: Constipation) alprazolam 1 mg tablet 1 mg PO BEDTIME PRN (Reason: Anxiety) Eliquis 5 mg tablet 5 mg PO BID acetaminophen 500 mg tablet 500 - 1,000 mg PO Q8-10H PRN (Reason: pain) Qty: 100 4RF ibuprofen 600 mg tablet 600 mg PO Q8H PRN (Reason: mild pain) bupropion HCl 150 mg tablet sustained-release 12 hr PO fluticasone propionate 50 mcg/actuation spray,suspension 2 spray intranasal QAM cilostazol 100 mg tablet 100 mg PO BID Qty: 180 1RF sertraline [Zoloft] 50 mg tablet 75 mg PO DAILY trazodone 150 mg tablet 150 mg PO BEDTIME PRN vitamin A 3,000 mcg (10,000 unit) capsule 1 cap PO QAM benztropine 0.5 mg tablet 0.5 mg PO QAM oxycodone-acetaminophen 5-325 mg tablet 1 tab PO Q8H PRN (Reason: severe pain) famotidine 20 mg tablet 20 mg PO BID risperidone 1 mg tablet PO methotrexate sodium 2.5 mg tablet 20 mg PO QWEEK Qty: 96 1RF folic acid 1 mg tablet 1 mg PO QAM Qty: 90 1RF
[2023-10-09 13:23] VITALS: BP 132/62; PULSE 75; RESP 18; TEMP 36.6; O2SAT 99
[2023-10-09] MEDS: oxyCODONE HCl Immed Release 5 MG TABLET PO (13:50)
[2023-10-09] MEDS: Gabapentin 400 MG CAPSULE PO (13:50)
--- NOTE | 2023-10-09 14:28 | PC.NURSE ---
MEDS GIVEN DOCUMENTED. PT IN XRAY AT THIS TIME. AT HER BEDSIDE.
--- NOTE | 2023-10-09 15:49 | PC.NURSE ---
PT BACK FROM XRAY, REPORT PENDING. PT'S REMAINS AT BEDSIDE.
[2023-10-09 16:00] VITALS: BP 136/85; PULSE 75; RESP 18; O2SAT 96
--- NOTE | 2023-10-09 16:48 | PC.NURSE ---
Pt cleared for discharge. Discharge instructions reviewed with pt and at her bedside. Pt discharged via w/c pushed by her . no complaints on discharge.
== END 2023-10-09 16:55 | disposition home or self-care (01) ==
PROVIDERS: Emergency Provider Student in an Organized Health Care Education/Training Program; PCP General Practice
DX: I73.9 Peripheral vascular disease, unspecified (principal); M79.605 Pain in left leg; M79.604 Pain in right leg; R60.0 Localized edema; F17.210 Nicotine dependence, cigarettes, uncomplicated; Z79.899 Other long term (current) drug therapy; Z86.718 Personal history of other venous thrombosis and embolism; Z79.01 Long term (current) use of anticoagulants
CPT/HCPCS: 36415; 80048; 85025; 85610; 93925; 99284

== ENCOUNTER 2023-10-20 08:32 | Outpatient (REF) | payer MEDICAID, SELFPAY ==
--- NOTE | ~2023-10-20 | US_ITS ---
EXAMINATION: US PELVIS CLINICAL INFORMATION: Abnormal uterine bleeding; the last menstrual period is not provided. COMPARISON: Pelvic ultrasound dated 05/22/2019; CT abdomen and pelvis dated 04/21/2023. TECHNIQUE: Ultrasound of the pelvis is performed using both transabdominal and transvaginal transducers along with Doppler. Transvaginal imaging is performed due to inadequate visualization transabdominally. FINDINGS: Uterus: The uterus is anteverted and anteflexed. The uterus measures 8.4 x 3.3 x 4.4 cm. A small nabothian cyst is seen within the cervix. The double wall endometrial thickness is 0.5 mm. The uterus is smooth in contour and has heterogeneous myometrial echogenicity. There are tiny myometrial cystic foci. No visible fibroid. Adnexa: Both ovaries are visualized. There is normal color flow to the adnexa. There is no ovarian torsion. There is no pelvic ascites or fluid collection. Right ovary measures 2.2 x 1.3 x 1.3 cm, volume 2.0 mL. Left ovary measures 2.3 x 1.3 x 1.5 cm, volume 2.4 mL. The left ovary contains a 3 mm hyperechoic, nonshadowing focus, possibly a minute prior hemorrhage. This is of doubtful clinical significance. US/US pelvic and transvaginal IMPRESSION: 1. There is heterogeneous myometrial echotexture, myometrial cysts are seen, raising the possibility of adenomyosis. If of continued clinical concern, this can be further evaluated with pelvic MRI. 2. A small nabothian cyst is seen within the cervix.
== END 2023-10-20 08:33 | disposition home or self-care (01) ==
LOC: HO.US 08:32
PROVIDERS: PCP General Practice; Visit Provider General Practice
DX: N93.9 Abnormal uterine and vaginal bleeding, unspecified (principal)
CPT/HCPCS: 76830; 76856

== ENCOUNTER 2023-10-24 09:43 | Emergency (ER) | payer MEDICAID, SELFPAY ==
--- NOTE | ~2023-10-24 | XR_ITS ---
EXAMINATION: XR SHOULDER, RIGHT XR HAND/WRIST, RIGHT CLINICAL INFORMATION: Right shoulder pain and swelling. Right hand and wrist pain and swelling. COMPARISON: Right hand and wrist radiographs dated 06/22/2023. Right shoulder radiographs dated 08/20/2022. TECHNIQUE: AP and scapular Y views of the right shoulder. AP, oblique, lateral, and scaphoid views of the right hand and wrist. FINDINGS: Right shoulder: No acute fracture or dislocation. No significant joint space narrowing or marginal osteophytes. No osseous erosion. No abnormal soft tissue calcification. Right hand and wrist: No acute fracture or dislocation. Joint space narrowing with marginal osteophytes at the radiocarpal joint, similar when compared to the prior examination. Faint chondrocalcinosis redemonstrated adjacent to the ulnar styloid. No osseous erosion. No new abnormal soft tissue calcification. XR/XR shoulder RT min 2V IMPRESSION: Right shoulder: Unremarkable examination. Right hand and wrist: Moderate osteoarthritis at the radiocarpal joint, similar when compared to the prior examination. Faint chondrocalcinosis redemonstrated adjacent to the ulnar styloid.
--- NOTE | ~2023-10-24 | XR_ITS ---
EXAMINATION: XR SHOULDER, RIGHT XR HAND/WRIST, RIGHT CLINICAL INFORMATION: Right shoulder pain and swelling. Right hand and wrist pain and swelling. COMPARISON: Right hand and wrist radiographs dated 06/22/2023. Right shoulder radiographs dated 08/20/2022. TECHNIQUE: AP and scapular Y views of the right shoulder. AP, oblique, lateral, and scaphoid views of the right hand and wrist. FINDINGS: Right shoulder: No acute fracture or dislocation. No significant joint space narrowing or marginal osteophytes. No osseous erosion. No abnormal soft tissue calcification. Right hand and wrist: No acute fracture or dislocation. Joint space narrowing with marginal osteophytes at the radiocarpal joint, similar when compared to the prior examination. Faint chondrocalcinosis redemonstrated adjacent to the ulnar styloid. No osseous erosion. No new abnormal soft tissue calcification. XR/XR hand wrist RT IMPRESSION: Right shoulder: Unremarkable examination. Right hand and wrist: Moderate osteoarthritis at the radiocarpal joint, similar when compared to the prior examination. Faint chondrocalcinosis redemonstrated adjacent to the ulnar styloid.
[2023-10-24 10:06] VITALS: BP 109/64; PULSE 69; RESP 16; TEMP 36.3; O2SAT 98; BMI 33.7
--- NOTE | 2023-10-24 10:50 | ED_ITS ---
HPI - General Adult General Chief complaint: Extremity Problem Stated complaint: r side pain Time Seen by Provider: 10/24/23 10:27 Source: patient and historical interpreter Mode of arrival: ambulatory Limitations: language barrier History of Present Illness HPI narrative: Patient is a 48-year-old Burkinan speaking female presenting to the emergency department with complaint of right shoulder pain radiating down right arm since last night. She states that she previously had surgery to right axilla several years prior. Feels as though right hand is swollen. Denies fevers. Did not take any oTC medications for her pain. Denies recent falls or other trauma. MD complaint: right shoulder pain Onset (ago): hour(s) Location: right and upper extremity Radiation: distal Severity: severe Quality: aching Pain Consistency: constant Relieving factors: none Exacerbating factors: movement Associated symptoms: denies other symptoms Treatments prior to arrival: none Related Data Home Medications Medication Instructions Recorded Confirmed albuterol sulfate 90 mcg/actuation 2 puff PO Q4-6H PRN Wheezing 10/02/21 10/04/23 aerosol inhaler (ProAir HFA) ferrous sulfate 325 mg (65 mg 1 tab PO QAM 10/02/21 10/04/23 iron) tablet (FeroSul) gabapentin 400 mg capsule 400 mg PO TID 10/22/21 10/04/23 docusate sodium 100 mg capsule 100 mg PO BEDTIME PRN Constipation 04/19/22 10/04/23 apixaban 5 mg tablet (Eliquis) 5 mg PO BID 09/22/22 10/04/23 alprazolam 1 mg tablet 1 mg PO BEDTIME PRN Anxiety 12/10/22 10/04/23 benztropine 0.5 mg tablet 0.5 mg PO QAM 01/17/23 10/04/23 lidocaine 5 % topical patch 1 patch topical DAILY PRN Pain 04/20/23 10/04/23 (Lidoderm) famotidine 20 mg tablet 20 mg PO BID 05/16/23 10/04/23 oxycodone-acetaminophen 5 mg-325 1 tab PO Q8H PRN severe pain 05/16/23 10/04/23 mg tablet risperidone 1 mg tablet mg PO 05/16/23 10/04/23 bupropion HCl 150 mg tablet,12 hr mg PO 06/09/23 10/04/23 sustained-release fluticasone propionate 50 2 spray intranasal QAM 06/09/23 10/04/23 mcg/actuation nasal spray,suspension ibuprofen 600 mg tablet 600 mg PO Q8H PRN mild pain 06/09/23 10/04/23 sertraline 50 mg tablet (Zoloft) 75 mg PO DAILY 07/13/23 10/04/23 trazodone 150 mg tablet 150 mg PO BEDTIME PRN 07/13/23 10/04/23 vitamin A 3,000 mcg (10,000 unit) 1 cap PO QAM 07/13/23 10/04/23 capsule Previous Rx's Medication Instructions Recorded acetaminophen 500 mg tablet 500 - 1,000 mg (1 - 2 x 500 mg) PO 09/22/22 Q8-10H PRN pain #100 tabs umeclidinium 62.5 mcg/actuation 1 inh PO DAILY #30 ea 11/29/22 blister powder for inhalation (Incruse Ellipta) cholecalciferol (vitamin D3) 25 25 mcg PO QAM #90 caps 02/28/23 mcg (1,000 unit) capsule (Vitamin D3) nicotine 21 mg/24 hr daily 21 mg transdermal DAILY #30 ea 04/21/23 transdermal patch vitamin A palmitate 3,000 mcg 10,000 unit PO DAILY #90 tabs 06/15/23 (10,000 unit) tablet cilostazol 100 mg tablet 100 mg PO BID #180 tabs 07/14/23 pantoprazole 40 mg tablet,delayed 40 mg PO DAILY #90 tabs 08/09/23 release ascorbic acid (vitamin C) 500 mg 1,000 mg (2 x 500 mg) PO QAM #180 09/06/23 tablet (Vitamin C) tabs folic acid 1 mg tablet 1 mg PO QAM #90 tabs 10/04/23 methotrexate sodium 2.5 mg tablet 20 mg (8 x 2.5 mg) PO QWEEK #96 10/04/23 tabs prednisone 2.5 mg tablet 2.5 mg PO DAILY #90 tabs 10/05/23 Olumiant 2 mg tablet (baricitinib) 2 mg PO DAILY #30 tabs 10/24/23 lidocaine 5 % topical patch 1 patch topical DAILY #15 ea 10/24/23 Allergies Allergy/AdvReac Type Severity Reaction Status Date / Time almond [ALMONDS] Allergy Severe ANAPHYLAXIS Verified 10/09/23 10:48 adhesive tape [ADHESIVE TAPE] Allergy Intermediate RASH Verified 10/09/23 10:48 morphine [MORPHINE] Allergy Intermediate GI UPSET, Verified 10/09/23 10:48 difficulty breathing tramadol [TRAMADOL] AdvReac Unknown NAUSEA & Verified 10/09/23 10:48 VOMITING Review of Systems 2 Review of Systems: As per HPI. Yes all other systems are reviewed and are negative Constitutional: Constitutional: Reports as per HPI PMFSH Past Medical History Medical History PAD (peripheral artery disease) Skin lesion Knee pain, left Seropositive rheumatoid arthritis Anxiety Achilles tendinitis Superficial femoral artery occlusion Depression Hx of peripheral pulmonary artery stenosis History of chemotherapy Cancer of heart Bone cancer Lung cancer Bleeding hemorrhoid Degeneration, intervertebral disc, lumbar Chronic GERD Degeneration of intervertebral disc at C4-C5 level Osteoarthritis of spine with radiculopathy, lumbar region Fibromyalgia Esophageal dysphagia Vitamin D deficiency Systemic lupus erythematosus Seropositive rheumatoid arthritis Rheumatoid arthritis involving multiple sites Gallstones Stress incontinence in female Nocturia Urgency-frequency syndrome De Quervain's disease (tenosynovitis) Depressive disorder Acute arthritis Hodgkin disease Surgical History History of surgical removal of skin lesion (~07/13/23) History of angioplasty of vein History of biopsy H/O tubal ligation Hx of endoscopy Hx laparoscopic cholecystectomy Hx of colonoscopy History of esophagogastroduodenoscopy (EGD) History of repair of inguinal hernia History of lymph node dissection of left axilla Family History Family History Maternal Grandmother Ovarian cancer Social History Social History Household Members: Spouse Housing: Apartment Are you a primary team primary care physician to a significant other at home: No Do 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 have 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) Alcohol intake: never Comment: lozenge given 0831 Patient Tobacco Use Status: Current everyday Tobacco user Tobacco use type: Cigarette Cigarette Packs Per Day: 1 Substance Use Type: Marijuana Advance Directives: No Advance Directives Information Provided: No Advance Directives Date on File: 09/23/20 service: No Current occupational status: disabled 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 Blood pressure normal. Heart rate normal. Respiratory rate normal. Temperature normal. Oxygen saturation normal. Const General: cooperative, healthy appearing and no acute distress Orientation/consciousness: oriented to person, oriented to place, oriented to time and patient oriented x3 Limitations: no limitations HENMT Head: Yes normocephalic and Yes atraumatic Ears: external ears normal General nose exam: Normal external nose present Face and sinus: Yes face symmetric Mouth: oropharynx normal and moist mucous membranes Throat: Yes uvula midline Eyes Pupils: Equal, round and reactive pupils present Neck Neck: Yes normal visual inspection and Yes supple Resp Effort & Inspection: normal respiratory effort and able to speak in complete sentences Auscultation: clear to auscultation bilaterally Cardio Rate: regular rate Rhythm: regular rhythm Heart sounds: S1 normal heart sound present and S2 normal heart sound present GI Palpation (GI): Soft to palpation and nontender Auscultation: normoactive bowel sounds General: Yes no CVA tenderness Back/Spine/Pelvis Back: no CVA tenderness Skin General skin exam: elasticity normal and turgor normal Neuro General: oriented to person, oriented to place, oriented to time, patient oriented x3, moves all extremities, no focal motor deficits and CN's II-XI intact bilaterally Cranial nerves: Yes Equal, round and reactive pupils present Cognition (Neuro): normal cognition Extrem General: Yes full ROM, Yes no pedal edema and Yes no calf tenderness Right upper extremity: shoulder/upper arm Details: normal to inspection, tenderness Location: of the scapula and over the coracoid process and normal ROM; no swelling and Extremity exam: right hand Details: vascular exam Details: radial pulse present and normal ROM of fingers Psych Mental Status: mental status grossly normal Affect: normal affect Thought process: Normal thought process present Medical Decision Making Medical Decision Making MDM Narrative: Patient is a 48-year-old Burkinan speaking female presenting to the emergency department with complaint of right shoulder pain radiating down right arm since last night. On exam patient is awake, A+Ox3, VS WNL, afebrile, normal neurological exam without focal deficits, physical exam findings as above. Given reported symptoms and physical exam findings, initial differential includes muscle strain/sprain. Unlikely fracture, infection. Labs notable for no leukocytosis. X-ray notable for unremarkable shoulder exam, osteoarthritis of wrist. My interpretation is in agreement with the radiologist's interpretation. Results discussed with patient and advised her to alternate Tylenol and ibuprofen, will prescribe topical lidocaine patches. Instructed patient to follow-up with her primary care provider. Return precautions discussed at bedside. Patient verbalized understanding of and agreement with plan. Differential Diagnosis Differential Diagnoses: The differential diagnosis associated with the presentation includes As per MDM. Lab Data [facility] Lab Attestation statement: I reviewed the patient's lab results. As per [facility]. 10/24/23 11:28 10/24/23 11:28 Labs: Lab Results 10/24/23 Range/Units 11:28 WBC 7.6 (4.8-10.8) X10*3/uL RBC 3.85 L (4.20-5.50) X10*6/uL Hgb 11.9 L (12.0-16.0) g/dl Hct 36.6 L (37.0-47.0) % MCV 95.1 (80.0-98.0) fL MCH 30.9 (27.0-33.0) pg MCHC 32.5 (31.0-35.0) g/dl RDW 14.0 (11.0-16.0) % Plt Count 317 (160-400) X10*3/uL MPV 10.0 (9.4-12.3) fL Immature Gran % (Auto) 0.4 (0.0-0.4) % Neut % (Auto) 72.4 (45-73) % Lymph % (Auto) 20.4 (20-40) % Freestone % (Auto) 6.0 (2-11) % Eos % (Auto) 0.5 (0-4) % Baso % (Auto) 0.3 (0-2) % Lymph # (Auto) 1.5 (1.2-4.9) X10*3/uL [place] # (Auto) 0.5 (0.1-1.2) X10*3/uL Eos # (Auto) 0.0 (0.0-0.4) X10*3/uL Baso # (Auto) 0.0 (0.0-0.2) X10*3/uL Abs Immat Gran (auto) 0.03 (0.00-0.03) X10*3/uL Absolute Neuts (auto) 5.5 (2.0-8.3) x10*3/uL Absolute Nucleated RBC 0.000 (0.0-0.012) X10*3/uL Nucleated RBC % (auto) 0.0 (0.0-0.2) /100WBC Sodium 140 (135-145) mmol/L Potassium 3.9 (3.3-5.1) mmol/L Chloride 104 (96-108) mmol/L Carbon Dioxide 27 (22-29) mmol/L Anion Gap 13 (12-20) BUN 14 (9-16) mg/dL Creatinine 0.80 (0.5-1.4) mg/dL Estim Creat Clear Calc 90.4 Estimated GFR > 60 Random Glucose 108 (60-115) mg/dL Calcium 9.8 (8.4-10.2) mg/dL Independent Interpretation I performed an independent interpretation of an: Plain X-Ray Interpretation: Unremarkable shoulder x-ray, moderate osteoarthritis of right wrist, no acute fractures Radiology Impression Discussion of test interpretation with radiology: I have reviewed the radiologist's reading. Radiologist Impression: XR/XR shoulder RT min 2V IMPRESSION: Right shoulder: Unremarkable examination. Right hand and wrist: Moderate osteoarthritis at the radiocarpal joint, similar when compared to the prior examination. Faint chondrocalcinosis redemonstrated adjacent to the ulnar styloid. External Record Review External record reviewed: Inpatient record, Office record and Outpatient record Prescription Management I considered prescription management with: Pain Medication Discharge Plan Discharge Clinical Impression: Pain in right shoulder Patient Disposition: Home, Self-Care Instructions: Arthralgia (ED), Shoulder Pain (ED) Additional Instructions: You have been evaluated in the emergency department today for right shoulder pain. Your evaluation did not find evidence of medical conditions requiring emergent intervention at this time. Please rest and ice your shoulder, and resume normal activities as tolerated. We recommend you take 600mg ibuprofen every 6 hours or 650mg Tylenol every 6 hours as needed for pain. If Needed you can alternate these medications as they take 1 medication every 3 hours. For instance at noon take ibuprofen, then at 3:00 p.m. take Tylenol, then at 6:00 p.m. take ibuprofen. You are being prescribed topical lidocaine patches which you can wear for up to 12 hours in a 24 hour period. Please do not apply heat directly over the patches. Please schedule an appointment for follow-up with your primary care provider this week. Return to the emergency department if you experience worsening pain, numbness, tingling, change of color in your arm/hand, or any other concerning symptoms. Prescriptions: New lidocaine 5 % adhesive patch,medicated 1 patch topical DAILY Qty: 15 0RF Rx Instructions: leave on most painful area for up to 12 hrs No Action Incruse Ellipta 62.5 mcg/actuation blister with device 1 inh PO DAILY Qty: 30 6RF cholecalciferol (vitamin D3) [Vitamin D3] 25 mcg (1,000 unit) capsule 25 mcg PO QAM Qty: 90 2RF vitamin A palmitate 3,000 mcg (10,000 unit) tablet 10,000 unit PO DAILY Qty: 90 1RF pantoprazole 40 mg tablet,delayed release (DR/EC) 40 mg PO DAILY Qty: 90 1RF ascorbic acid (vitamin C) [Vitamin C] 500 mg tablet 1,000 mg PO QAM Qty: 180 2RF prednisone 2.5 mg tablet 2.5 mg PO DAILY Qty: 90 0RF Olumiant 2 mg tablet 2 mg PO DAILY Qty: 30 0RF gabapentin 400 mg capsule 400 mg PO TID ferrous sulfate [FeroSul] 325 mg (65 mg iron) tablet 1 tab PO QAM albuterol sulfate [ProAir HFA] 90 mcg/actuation HFA aerosol inhaler 2 puff PO Q4-6H PRN (Reason: Wheezing) lidocaine [Lidoderm] 5 % adhesive patch,medicated 1 patch topical DAILY PRN (Reason: Pain) Rx Instructions: leave on most painful area for up to 12 hrs nicotine 21 mg/24 hr Patch 24 Hour 21 mg transdermal DAILY Qty: 30 0RF docusate sodium 100 mg capsule 100 mg PO BEDTIME PRN (Reason: Constipation) alprazolam 1 mg tablet 1 mg PO BEDTIME PRN (Reason: Anxiety) Eliquis 5 mg tablet 5 mg PO BID acetaminophen 500 mg tablet 500 - 1,000 mg PO Q8-10H PRN (Reason: pain) Qty: 100 4RF ibuprofen 600 mg tablet 600 mg PO Q8H PRN (Reason: mild pain) bupropion HCl 150 mg tablet sustained-release 12 hr PO fluticasone propionate 50 mcg/actuation spray,suspension 2 spray intranasal QAM cilostazol 100 mg tablet 100 mg PO BID Qty: 180 1RF sertraline [Zoloft] 50 mg tablet 75 mg PO DAILY trazodone 150 mg tablet 150 mg PO BEDTIME PRN vitamin A 3,000 mcg (10,000 unit) capsule 1 cap PO QAM benztropine 0.5 mg tablet 0.5 mg PO QAM oxycodone-acetaminophen 5-325 mg tablet 1 tab PO Q8H PRN (Reason: severe pain) famotidine 20 mg tablet 20 mg PO BID risperidone 1 mg tablet PO methotrexate sodium 2.5 mg tablet 20 mg PO QWEEK Qty: 96 1RF folic acid 1 mg tablet 1 mg PO QAM Qty: 90 1RF
[2023-10-24 11:32] LABS: MANUAL DIFF FLAG NO
[2023-10-24 11:38] LABS: Basophils Percent Auto 0.3 % (0-2); Eosinophils Percent Auto 0.5 % (0-4); Hematocrit 36.6 % (37.0-47.0); Hemoglobin 11.9 g/dl (12.0-16.0); Imm Gran Abs Auto 0.03 X10*3/uL (0.00-0.03); Imm Gran Pct Auto 0.4 % (0.0-0.4); Lymphocytes Absolute Auto 1.5 X10*3/uL (1.2-4.9); Lymphocytes Percent Auto 20.4 % (20-40); Mean Corpuscular HGB Conc 32.5 g/dl (31.0-35.0); Mean Corpuscular Hemoglobin 30.9 pg (27.0-33.0); Mean Corpuscular Volume 95.1 fL (80.0-98.0); Monocytes Absolute Auto 0.5 X10*3/uL (0.1-1.2); Neutrophils Absolute Auto 5.5 x10*3/uL (2.0-8.3); Neutrophils Percent Auto 72.4 % (45-73); Platelet Count 317 X10*3/uL (160-400); Red Blood Count 3.85 X10*6/uL (4.20-5.50); White Blood Count 7.6 X10*3/uL (4.8-10.8)
[2023-10-24 12:02] LABS: Anion Gap 13 (12-20); Blood Urea Nitrogen 14 mg/dL (9-16); Calcium 9.8 mg/dL (8.4-10.2); Carbon Dioxide 27 mmol/L (22-29); Chloride 104 mmol/L (96-108); Creatinine Clr Calc Pharmacy 90.4; Estimated Glomerular Filt Rate > 60; Glucose Random 108 mg/dL (60-115); Potassium 3.9 mmol/L (3.3-5.1); Sodium 140 mmol/L (135-145)
== END 2023-10-24 14:18 | disposition home or self-care (01) ==
PROVIDERS: Registered Nurse Emergency; Emergency Provider Emergency Medicine; PCP General Practice
DX: M25.511 Pain in right shoulder (principal); M79.641 Pain in right hand; M25.531 Pain in right wrist
CPT/HCPCS: 36415; 73030; 73110; 73130; 80048; 85025; 99281; 99283

== ENCOUNTER 2023-10-25 12:51 | Outpatient (AMB) | payer MEDICAID, SELFPAY ==
--- NOTE | 2023-10-25 12:54 | MHC.OFFVIS ---
Intake Vital Signs 10/25/23 12:55 Height 5 ft 3 in Weight 190 lb BMI 33.7 Intake Visit Reasons: 3 month leg check Intake Note: pt here for 3 month leg check, pt reports pain on plantar foot and when walking or stand up for few minutes start swollen on right foot almost for one month ago. Retail Representative Required: Yes Retail Representative Language: Director Of Graduate Medical Education Name: Retail Representative [id number] Information Interpreted: non-clinical & clinical Accompanied by: Self / Same As Patient Allergies almond [ALMONDS] Allergy (Severe, Verified 10/25/23 13:00) ANAPHYLAXIS adhesive tape [ADHESIVE TAPE] Allergy (Intermediate, Verified 10/25/23 13:00) RASH morphine [MORPHINE] Allergy (Intermediate, Verified 10/25/23 13:00) GI UPSET, difficulty breathing tramadol [TRAMADOL] Adverse Reaction (Unknown, Verified 10/25/23 13:00) NAUSEA & VOMITING HPI 3 month leg check HPI Details Very pleasant 47-year-old female presents for follow-up regarding peripheral vascular disease. She has difficulty ambulating more than a block. She continues to smoke about a half pack per day. She continues to have back pain issues which she is seeing pain management for. She now presents for routine surveillance follow-up with noninvasive arterial testing. [facility] Medical History PAD (peripheral artery disease) Skin lesion Knee pain, left Seropositive rheumatoid arthritis Anxiety Achilles tendinitis Superficial femoral artery occlusion Depression Hx of peripheral pulmonary artery stenosis History of chemotherapy Cancer of heart Bone cancer Lung cancer Bleeding hemorrhoid Degeneration, intervertebral disc, lumbar Chronic GERD Degeneration of intervertebral disc at C4-C5 level Osteoarthritis of spine with radiculopathy, lumbar region Fibromyalgia Esophageal dysphagia Vitamin D deficiency Systemic lupus erythematosus Seropositive rheumatoid arthritis Rheumatoid arthritis involving multiple sites Gallstones Stress incontinence in female Nocturia Urgency-frequency syndrome De Quervain's disease (tenosynovitis) Depressive disorder Acute arthritis Hodgkin disease Surgical History History of surgical removal of skin lesion (~07/13/23) History of angioplasty of vein History of biopsy H/O tubal ligation Hx of endoscopy Hx laparoscopic cholecystectomy Hx of colonoscopy History of esophagogastroduodenoscopy (EGD) History of repair of inguinal hernia History of lymph node dissection of left axilla Family History Maternal Grandmother Ovarian cancer Social History Household Members: Spouse Housing: Apartment Are you a primary special needs caregiver to a significant other at home: No 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) Alcohol intake: never Comment: lozenge given [id number] Patient Tobacco Use Status: Current everyday Tobacco user Tobacco use type: Cigarette Cigarette Packs Per Day: 1 Substance Use Type: Marijuana Advance Directives: No Advance Directives Information Provided: No Advance Directives Date on File: 09/23/20 service: No Current occupational status: disabled 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 of Systems Const All systems reviewed & are unremarkable except as noted in HPI and below Reports no additional complaints ENT Reports Normal hearing present Card Denies chest pain, Denies chest pain at rest, Denies chest pain with activity and Denies pedal edema Resp Denies cough GI Denies abdominal pain Musc Denies abnormal gait, Denies muscle cramps and Denies radiating pain into limb Skin/Breast Denies skin ulcer and Denies wounds Neuro Reports Normal hearing present and Denies abnormal gait Psych Reports no additional complaints Physical Exam Vital Signs: BMI result Body Mass Index 33.7 Const General: cooperative, healthy appearing and comfortable Orientation/consciousness: oriented to person, oriented to place and oriented to time HEENT Head: Yes normal to inspection Neck Neck: Yes normal visual inspection Carotids: no bruits Chest Chest palpation & inspection: normal inspection of the chest Resp Effort & Inspection: normal respiratory effort and able to speak in complete sentences Auscultation: clear to auscultation bilaterally, no crackles, no rales, no rhonchi and no wheezes Cardio Other: Bilateral DP signals Rate: regular rate Rhythm: regular rhythm Heart sounds: S1 normal heart sound present and S2 normal heart sound present Bruits: no carotid bruits Peripheral pulses: Peripheral pulses 2+ throughout GI Inspection: Yes normal to inspection Skin Wounds: no wounds Hair: normal Neuro General: oriented to person, oriented to place and oriented to time Cranial nerves: Yes CN's II-XII intact bilaterally and Yes Normal hearing present Cognition (Neuro): normal cognition Motor exam (neuro): 5/5 motor strength present throughout Extrem Other: venous exam: No significant superficial varicosities or spider telangiectasias, minimal edema General: No clubbing, No cyanosis and No edema Psych Appearance: grossly normal Mental Status: mental status grossly normal Speech and movement: Normal speech and movement present Results Reviewed Results Reviewed: Noninvasive testing dated 10/09/2023 demonstrates bilateral monophasic flow down the leg. Concern of SFA occlusion. Written report and images were reviewed. Assessment & Plan Assessment & Plan (1) PAD (peripheral artery disease): Comment: 04/21/2022 - diagnostic angiogram - left common iliac occlusion, right SFA stenosis at [place] canal 06/09/2022 - right SFA angioplasty and stent via radial approach Code(s): I73.9 - Peripheral vascular disease, unspecified Plan: In short patient does have an element of peripheral vascular disease. Due to her overall status and back issues in addition to rheumatoid arthritis I do not believe that this is all arterial in nature. At the current time would like to manage this as conservatively as possible. Will repeat noninvasive testing and proximally 1 year's time. Thank you for allowing us to assist in her care. If there are any questions or concerns please do not hesitate to contact us. Orders: Orders US arterial duplex LE BI 1 Year I73.9 - Peripheral vascular disease, unspecified Coding Level of Care Code Est Pt Level 4 (75066) Diagnoses PAD (peripheral artery disease) I73.9
[2023-10-25 12:55] VITALS: BMI 33.7
== END 2023-10-25 13:26 | disposition home or self-care (01) ==
PROVIDERS: PCP General Practice; Visit Provider Surgery Vascular Surgery
DX: I73.9 Peripheral vascular disease, unspecified (principal)
CPT/HCPCS: 99213

== ENCOUNTER → 2023-10-25 12:51 | Outpatient (BNVA) | payer MEDICAID, SELFPAY | PROVIDERS: PCP General Practice; Visit Provider Surgery Vascular Surgery | DX: I73.9 Peripheral vascular disease, unspecified (principal) | CPT/HCPCS: 99212 ==

== ENCOUNTER 2023-10-26 05:00 | Emergency (ER) | payer MEDICAID, SELFPAY ==
--- NOTE | ~2023-10-26 | US_ITS ---
EXAMINATION: US VENOUS ULTRASOUND WITH DOPPLER LOWER EXTREMITY, LEFT CLINICAL INFORMATION: Acute left hip thigh pain history of DVT COMPARISON: Ultrasound venous Doppler lower extremity bilateral from 06/22/2023 TECHNIQUE: Ultrasound of the deep veins is performed from the hip to the calf with compression sonography and color and pulse Doppler assessment. Spectral analysis with color-flow imaging is performed. FINDINGS: There is normal venous compression and respiratory variation and augmented flow. The visualized common femoral vein, superficial femoral vein, profunda femoral vein, popliteal vein, and the trifurcation region shows no evidence of deep venous thrombosis. There is no significant popliteal fossa cyst. If the patient's symptoms persist, followup ultrasound in 5 days 7 days might be of value to exclude proximal propagation from a non-visualized calf vein. US/US venous duplex LE LT IMPRESSION: No DVT demonstrated in the left lower extremity.
--- NOTE | ~2023-10-26 | XR_ITS ---
EXAMINATION: XR HIP, LEFT CLINICAL INFORMATION: Atraumatic left hip pain COMPARISON: Right hip radiograph from 09/16/2022 TECHNIQUE: Single view the pelvis 2 views the left hip FINDINGS: No acute visible fracture or dislocation. Mild degenerative changes of the bilateral femoral acetabular joints. Degenerative arthropathy of the lumbosacral spine. Joint space alignment are otherwise maintained. Bowel gas is unremarkable. Soft tissues are unremarkable. XR/XR hip LT w PEL1V IMPRESSION: 1. No acute visible fracture or dislocation. 2. Mild degenerative changes of the bilateral femoral acetabular joints.
[2023-10-26 06:03] VITALS: BP 116/79; PULSE 76; RESP 16; TEMP 37; O2SAT 97; BMI 33.7
--- NOTE | 2023-10-26 07:08 | PC.NURSE ---
Report given to oncoming JENNIFER Best
[2023-10-26 07:27] VITALS: BP 122/58; PULSE 67; RESP 16; TEMP 37.1; O2SAT 97
--- NOTE | 2023-10-26 07:40 | ED.GENADULT ---
HPI - General Adult General Chief complaint: Back Pain/Injury Stated complaint: Leg pain Time Seen by Provider: 10/26/23 06:30 Source: patient, EMS and police detective (ethiopian) Mode of arrival: EMS Limitations: language barrier History of Present Illness HPI narrative: 48 year old Congolese speaking female with pmhx significant for rheumatoid arthritis, SLE, anxiety, peripheral artery disease, DVT, depression, GERD, degenerative disc disease, fibromyalgia, Hodgkin's lymphoma (2004) presents to the emergency department today via EMS for evaluation of acute onset atraumatic left hip pain that woke her from her sleep at 0200 today. Admits that pain radiates from her left hip, down her lateral left thigh, and into her foot. Denies taking anything for this prior to arrival. She does admit that she took Percocet around 1999 last night for her fibromyalgia. She denies ever having this pain before. Denies trauma or injury. Denies recent travel or long car rides. Denies fever, chills, back pain, numbness/tingling/weakness of the extremities, saddle anesthesia, bowel or bladder incontinence or retention, dysuria, hematuria. She is currently anticoagulated with Eliquis given DVT history. 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 Related Data Home Medications Medication Instructions Recorded Confirmed albuterol sulfate 90 mcg/actuation 2 puff PO Q4-6H PRN Wheezing 10/02/21 10/04/23 aerosol inhaler (ProAir HFA) ferrous sulfate 325 mg (65 mg 1 tab PO QAM 10/02/21 10/04/23 iron) tablet (FeroSul) gabapentin 400 mg capsule 400 mg PO TID 10/22/21 10/04/23 docusate sodium 100 mg capsule 100 mg PO BEDTIME PRN Constipation 04/19/22 10/04/23 apixaban 5 mg tablet (Eliquis) 5 mg PO BID 09/22/22 10/04/23 alprazolam 1 mg tablet 1 mg PO BEDTIME PRN Anxiety 12/10/22 10/04/23 benztropine 0.5 mg tablet 0.5 mg PO QAM 01/17/23 10/04/23 lidocaine 5 % topical patch 1 patch topical DAILY PRN Pain 04/20/23 10/04/23 (Lidoderm) famotidine 20 mg tablet 20 mg PO BID 05/16/23 10/04/23 oxycodone-acetaminophen 5 mg-325 1 tab PO Q8H PRN severe pain 05/16/23 10/04/23 mg tablet risperidone 1 mg tablet mg PO 05/16/23 10/04/23 bupropion HCl 150 mg tablet,12 hr mg PO 06/09/23 10/04/23 sustained-release fluticasone propionate 50 2 spray intranasal QAM 06/09/23 10/04/23 mcg/actuation nasal spray,suspension ibuprofen 600 mg tablet 600 mg PO Q8H PRN mild pain 06/09/23 10/04/23 sertraline 50 mg tablet (Zoloft) 75 mg PO DAILY 07/13/23 10/04/23 trazodone 150 mg tablet 150 mg PO BEDTIME PRN 07/13/23 10/04/23 vitamin A 3,000 mcg (10,000 unit) 1 cap PO QAM 07/13/23 10/04/23 capsule acetaminophen 650 mg 650 mg PO Q8H PRN pain 10/25/23 tablet,extended release amoxicillin 500 mg capsule 500 mg PO Q8H 10/25/23 chlorhexidine gluconate 0.12 % 15 ml PO DAILY PRN 10/25/23 mouthwash Previous Rx's Medication Instructions Recorded acetaminophen 500 mg tablet 500 - 1,000 mg (1 - 2 x 500 mg) PO 09/22/22 Q8-10H PRN pain #100 tabs umeclidinium 62.5 mcg/actuation 1 inh PO DAILY #30 ea 11/29/22 blister powder for inhalation (Incruse Ellipta) cholecalciferol (vitamin D3) 25 25 mcg PO QAM #90 caps 02/28/23 mcg (1,000 unit) capsule (Vitamin D3) nicotine 21 mg/24 hr daily 21 mg transdermal DAILY #30 ea 04/21/23 transdermal patch vitamin A palmitate 3,000 mcg 10,000 unit PO DAILY #90 tabs 06/15/23 (10,000 unit) tablet cilostazol 100 mg tablet 100 mg PO BID #180 tabs 07/14/23 pantoprazole 40 mg tablet,delayed 40 mg PO DAILY #90 tabs 08/09/23 release ascorbic acid (vitamin C) 500 mg 1,000 mg (2 x 500 mg) PO QAM #180 09/06/23 tablet (Vitamin C) tabs folic acid 1 mg tablet 1 mg PO QAM #90 tabs 10/04/23 methotrexate sodium 2.5 mg tablet 20 mg (8 x 2.5 mg) PO QWEEK #96 10/04/23 tabs prednisone 2.5 mg tablet 2.5 mg PO DAILY #90 tabs 10/05/23 Olumiant 2 mg tablet (baricitinib) 2 mg PO DAILY #30 tabs 10/24/23 lidocaine 5 % topical patch 1 patch topical DAILY #15 ea 10/24/23 lidocaine 5 % topical patch 1 patch topical DAILY #15 ea 10/26/23 (Lidoderm) Allergies Allergy/AdvReac Type Severity Reaction Status Date / Time almond [ALMONDS] Allergy Severe ANAPHYLAXIS Verified 10/25/23 13:00 adhesive tape [ADHESIVE TAPE] Allergy Intermediate RASH Verified 10/25/23 13:00 morphine [MORPHINE] Allergy Intermediate GI UPSET, Verified 10/25/23 13:00 difficulty breathing tramadol [TRAMADOL] AdvReac Unknown NAUSEA & Verified 10/25/23 13:00 VOMITING Review of Systems Review of Systems: Constitutional: No fever, chills, fatigue, night sweats, weight changes ENT/Mouth: No ear pain, hearing loss, nasal congestion, sinus pain, rhinorrhea, sore throat Eyes: No eye pain, swelling, redness, vision changes, discharge Cardio: No chest pain, palpitations, VALENTIN, orthopnea, peripheral edema Pulm: No SOB, cough, sputum, wheezing, dyspnea, hemoptysis GI: No nausea, vomiting, hematemesis, abdominal pain, diarrhea, constipation, hematochezia, melena : No irregular bleeding, dysuria, frequency, urgency, hesitancy, hematuria, flank pain, urinary flow changes, urinary incontinence or retention MSK: No back pain, neck pain, joint pain, myalgias, +left hip/thigh pain Skin: No lesions, rashes Neuro: No weakness, numbness, paresthesias, LOC, dizziness, headache Psych: No anxiety/panic, depression, SI/HI, AH/VH All other systems reviewed and are negative. [facility] [place] Past Medical History Attestation statement: The following information was validated with the patient. Source: old records reviewed and nursing notes reviewed Medical History PAD (peripheral artery disease) Skin lesion Knee pain, left Seropositive rheumatoid arthritis Anxiety Achilles tendinitis Superficial femoral artery occlusion Depression Hx of peripheral pulmonary artery stenosis History of chemotherapy Cancer of heart Bone cancer Lung cancer Bleeding hemorrhoid Degeneration, intervertebral disc, lumbar Chronic GERD Degeneration of intervertebral disc at C4-C5 level Osteoarthritis of spine with radiculopathy, lumbar region Fibromyalgia Esophageal dysphagia Vitamin D deficiency Systemic lupus erythematosus Seropositive rheumatoid arthritis Rheumatoid arthritis involving multiple sites Gallstones Stress incontinence in female Nocturia Urgency-frequency syndrome De Quervain's disease (tenosynovitis) Depressive disorder Acute arthritis Hodgkin disease Surgical History History of surgical removal of skin lesion (~07/13/23) History of angioplasty of vein History of biopsy H/O tubal ligation Hx of endoscopy Hx laparoscopic cholecystectomy Hx of colonoscopy History of esophagogastroduodenoscopy (EGD) History of repair of inguinal hernia History of lymph node dissection of left axilla Family History Family History Maternal Grandmother Ovarian cancer Social History Social History Household Members: Spouse Housing: Apartment Are you a primary home care scheduler to a significant other at home: No Do 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 have 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 or other home services: Yes (float remover) Alcohol intake: never Comment: lozenge given [id number] Patient Tobacco Use Status: Current everyday Tobacco user Tobacco use type: Cigarette Cigarette Packs Per Day: 1 Substance Use Type: Marijuana Advance Directives: No Advance Directives Information Provided: No Advance Directives Date on File: 09/23/20 service: No Current occupational status: disabled 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 Physical Exam ED Vital Signs: Vital Signs - 24 hr 10/26/23 06:03 10/26/23 07:27 10/26/23 09:34 Temperature 98.6 F 98.7 F 97.9 F Pulse Rate 76 67 72 Respiratory Rate 16 16 16 Blood Pressure 116/79 122/58 L 123/72 Pulse Oximetry 97 97 96 Oxygen Delivery Method Room Air Room Air Room Air BMI result Body Mass Index 33.7 Vital signs stable Const Other: + tearful on exam General: cooperative, healthy appearing, comfortable and no acute distress Orientation/consciousness: patient oriented x3 Limitations: no limitations HENMT Head: Yes normal to inspection, Yes No palpable skull fracture present, Yes normocephalic and Yes atraumatic Eyes General: appearance normal, both eyes and all related structures Conjunctivae: conjunctivae normal Sclerae: sclerae normal Pupils: Equal, round and reactive pupils present Neck Neck: Yes normal visual inspection, Yes full ROM and Yes no lymphadenopathy Resp Effort & Inspection: normal respiratory effort Auscultation: clear to auscultation bilaterally Cardio Rate: regular rate Rhythm: regular rhythm GI Inspection: Yes normal to inspection Palpation (GI): Soft to palpation and nontender General: Yes no CVA tenderness Back/Spine/Pelvis Other: No midline spinous tenderness or step off deformity. No paraspinal muscle tenderness. Back: no CVA tenderness Skin General skin exam: no rashes or lesions noted Neuro Other: Strength 5/5 intact throughout.? No saddle anesthesia.? Sensation intact to light touch.? Neurovascular intact distally.? General: patient oriented x3 and gait normal Cranial nerves: Yes Equal, round and reactive pupils present Deep tendon reflexes (DTR's): Right patellar reflex intensity grade: 2+ and Left patellar reflex intensity grade: 2+ Pupils: Normal pupillary reactivity/response: bilateral Extrem Other: + tender to palpation over the left hip and lateral left thigh without palpable deformity. No warmth. No overlying skin changes. Full ROM intact to left hip, with pain induced on hip extension. Full ROM intact to left knee and left ankle. Sensation intact throughout. Strength 5/5 intact throughout. No saddle anesthesia. No peripheral edema. No pitting edema. No calf tenderness bilaterally. General: Yes normal to inspection, Yes full ROM, Yes capillary refill normal and Yes no calf tenderness Course Course Course Narrative: 08-- On chart review, patient has hx of left common iliac occlusion in 2021. Although unlikely as patient is on Eliquis, will order venous duplex ultrasound to rule out clot. 1103-- x-ray left hip/pelvis does not demonstrate acute fracture. It does show some chronic degenerative changes. Venous duplex ultrasound of left lower extremity does not demonstrate acute clot. Patient likely has sciatica. She is now lying comfortably in bed after receiving oxycodone. Will send her home with lidocaine patches. Informed her of all workup results and advised her to follow up with her primary care provider as she will likely need physical therapy. She tells me that she currently has physical therapy scheduled for November 02 for issues that she has with her right leg. I advised her to let them know about today's visit for further treatment. She verbalizes understanding and is agreeable to this. Patient has remained stable throughout ED visit today. She is ambulating with seady gait. Discussed worrisome signs and symptoms and when to return to the ED. All questions answered at this time. Patient is agreeable with disposition and stable for discharge. Medications Administered Discontinued Medications Generic Name Dose Route Start Last Admin Trade Name Freq PRN Reason Stop Dose Admin Nicotine Polacrilex 2 mg 10/26/23 08:59 10/26/23 09:04 Nicotine Polacrilex 2 Mg Gum BUCCAL 10/26/23 09:00 2 mg ONCE ONE Administration Oxycodone HCl 5 mg 10/26/23 07:52 10/26/23 08:18 Oxycodone Hcl Immed Release 5 Mg Tablet PO 10/26/23 07:53 5 mg ONCE ONE Administration Medical Decision Making Medical Decision Making MDM Narrative: 48 year old Congolese speaking female with pmhx significant for rheumatoid arthritis, SLE, anxiety, peripheral artery disease, DVT, depression, GERD, degenerative disc disease, fibromyalgia, Hodgkin's lymphoma (2004) presents to the emergency department today via EMS for evaluation of acute onset atraumatic left hip pain that woke her from her sleep at 0200 today. Vital signs stable. She is afebrile. She is nontoxic-appearing and in no acute distress. Initially tearful on exam however I am able to redirect and tears stop. She is tender to palpation over the left hip and lateral left thigh without palpable deformity. No warmth. No overlying skin changes. Full ROM intact to left hip, with pain induced on hip extension. Full ROM intact to left knee and left ankle. Sensation intact throughout. Strength 5/5 intact throughout. No saddle anesthesia. No peripheral edema. No pitting edema. No calf tenderness bilaterally. Differential diagnosis includes sciatica, DVT, contusion, arthritis, fibromyalgia. Low suspicion for fracture, dislocation, contusion, cauda equina, Guillain-[place], epidural abscess. Plan for imaging, pain control and re-evaluation. Differential Diagnosis Differential Diagnoses: The differential diagnosis associated with the presentation includes As above Admission/Observation Not indicated Independent Interpretation I performed an independent interpretation of an: Plain X-Ray and Ultrasound Interpretation: I have reviewed x-ray and agree with radiologist's interpretation. I have reviewed venous duplex ultrasound and agree with radiologist's interpretation. Radiology Impression Discussion of test interpretation with radiology: I have reviewed the radiologist's reading. Radiologist Impression: EXAMINATION: US VENOUS ULTRASOUND WITH DOPPLER LOWER EXTREMITY, LEFT CLINICAL INFORMATION: Acute left hip thigh pain history of DVT COMPARISON: Ultrasound venous Doppler lower extremity bilateral from 06/22/2023 TECHNIQUE: Ultrasound of the deep veins is performed from the hip to the calf with compression sonography and color and pulse Doppler assessment. Spectral analysis with color-flow imaging is performed. FINDINGS: There is normal venous compression and respiratory variation and augmented flow. The visualized common femoral vein, superficial femoral vein, profunda femoral vein, popliteal vein, and the trifurcation region shows no evidence of deep venous thrombosis. There is no significant popliteal fossa cyst. If the patient's symptoms persist, followup ultrasound in 5 days 7 days might be of value to exclude proximal propagation from a non-visualized calf vein. US/US venous duplex LE LT IMPRESSION: No DVT demonstrated in the left lower extremity. EXAMINATION: XR HIP, LEFT CLINICAL INFORMATION: Atraumatic left hip pain COMPARISON: Right hip radiograph from 09/16/2022 TECHNIQUE: Single view the pelvis 2 views the left hip FINDINGS: No acute visible fracture or dislocation. Mild degenerative changes of the bilateral femoral acetabular joints. Degenerative arthropathy of the lumbosacral spine. Joint space alignment are otherwise maintained. Bowel gas is unremarkable. Soft tissues are unremarkable. XR/XR hip LT w PEL1V IMPRESSION: 1. No acute visible fracture or dislocation. 2. Mild degenerative changes of the bilateral femoral acetabular joints. Independent Historian Clinical information obtained from an independent historian. History obtained from or confirmed by: Spouse External Record Review External record reviewed: Inpatient record, Office record, Outpatient record, Prior outpatient labs, Prior outpatient radiology, Primary care record and Outside ED record Prescription Management I considered prescription management with: Other (Lidocaine patch) Chronic Conditions Patient?s care impacted by: Other (Fibromyalgia, rheumatoid arthritis, SLE, Hodgkin's disease, PVD, chronic pain) Social Determinants Patient?s care significantly limited by Social Determinants of Health including: Other Social Determinant of Health Critical Care Time Critical Care Time Critical Care Time: Yes Total Critical Care Time: 39 Attestation: Critical care time in the amount of 39 minutes has been provided to the patient in terms of direct patient care, frequent reevaluation, review and interpretation of medical data and results, and management of potentially life-threatening conditions. This is all outside of any medical procedures. Discharge Plan Discharge Clinical Impression: Sciatica of left side without back pain, Chronic pain Patient Disposition: Home, Self-Care Instructions: Sciatica (ED), Lower Back Exercises (ED) Additional Instructions: Your x-ray did not demonstrate acute fracture or dislocation. Your ultrasound does not demonstrate acute clot. You likely have sciatica. Avoid bending, lifting, or twisting. Use ice several times per day for 20 minutes at a time for the next 48 hours and then change to heat. Lidoderm patches are numbing patches. Apply to painful areas. In addition you may take Tylenol at home. Continue taking all home medications as prescribed. Please follow-up with your PCP as you may require physical therapy. If your pain worsens, if you develop new numbness, tingling, weakness, loss of bowel or bladder function call 911 or return to the ER immediately for evaluation. Prescriptions: New lidocaine [Lidoderm] 5 % adhesive patch,medicated 1 patch topical DAILY Qty: 15 0RF Rx Instructions: leave on most painful area for up to 12 hrs No Action Incruse Ellipta 62.5 mcg/actuation blister with device 1 inh PO DAILY Qty: 30 6RF cholecalciferol (vitamin D3) [Vitamin D3] 25 mcg (1,000 unit) capsule 25 mcg PO QAM Qty: 90 2RF vitamin A palmitate 3,000 mcg (10,000 unit) tablet 10,000 unit PO DAILY Qty: 90 1RF pantoprazole 40 mg tablet,delayed release (DR/EC) 40 mg PO DAILY Qty: 90 1RF ascorbic acid (vitamin C) [Vitamin C] 500 mg tablet 1,000 mg PO QAM Qty: 180 2RF prednisone 2.5 mg tablet 2.5 mg PO DAILY Qty: 90 0RF Olumiant 2 mg tablet 2 mg PO DAILY Qty: 30 0RF gabapentin 400 mg capsule 400 mg PO TID ferrous sulfate [FeroSul] 325 mg (65 mg iron) tablet 1 tab PO QAM albuterol sulfate [ProAir HFA] 90 mcg/actuation HFA aerosol inhaler 2 puff PO Q4-6H PRN (Reason: Wheezing) lidocaine 5 % adhesive patch,medicated 1 patch topical DAILY Qty: 15 0RF Rx Instructions: leave on most painful area for up to 12 hrs lidocaine [Lidoderm] 5 % adhesive patch,medicated 1 patch topical DAILY PRN (Reason: Pain) Rx Instructions: leave on most painful area for up to 12 hrs nicotine 21 mg/24 hr Patch 24 Hour 21 mg transdermal DAILY Qty: 30 0RF docusate sodium 100 mg capsule 100 mg PO BEDTIME PRN (Reason: Constipation) alprazolam 1 mg tablet 1 mg PO BEDTIME PRN (Reason: Anxiety) Eliquis 5 mg tablet 5 mg PO BID acetaminophen 500 mg tablet 500 - 1,000 mg PO Q8-10H PRN (Reason: pain) Qty: 100 4RF ibuprofen 600 mg tablet 600 mg PO Q8H PRN (Reason: mild pain) bupropion HCl 150 mg tablet sustained-release 12 hr PO fluticasone propionate 50 mcg/actuation spray,suspension 2 spray intranasal QAM cilostazol 100 mg tablet 100 mg PO BID Qty: 180 1RF sertraline [Zoloft] 50 mg tablet 75 mg PO DAILY trazodone 150 mg tablet 150 mg PO BEDTIME PRN vitamin A 3,000 mcg (10,000 unit) capsule 1 cap PO QAM chlorhexidine gluconate 0.12 % mouthwash 15 ml PO DAILY PRN acetaminophen 650 mg tablet extended release 650 mg PO Q8H PRN (Reason: pain) amoxicillin 500 mg capsule 500 mg PO Q8H benztropine 0.5 mg tablet 0.5 mg PO QAM oxycodone-acetaminophen 5-325 mg tablet 1 tab PO Q8H PRN (Reason: severe pain) famotidine 20 mg tablet 20 mg PO BID risperidone 1 mg tablet PO methotrexate sodium 2.5 mg tablet 20 mg PO QWEEK Qty: 96 1RF folic acid 1 mg tablet 1 mg PO QAM Qty: 90 1RF Referrals: Estephania Chowdhury RN [Registered Nurse] - Stand Alone Forms: Work/School Release
--- NOTE | 2023-10-26 08:13 | PC.NURSE ---
Pt in Xray.
[2023-10-26] MEDS: oxyCODONE HCl Immed Release 5 MG TABLET PO (08:18)
--- NOTE | 2023-10-26 09:00 | PC.NURSE ---
US at the bedside at this time.
[2023-10-26] MEDS: Nicotine Polacrilex 2 MG GUM BUCCAL (09:04)
[2023-10-26 09:34] VITALS: BP 123/72; PULSE 72; RESP 16; TEMP 36.6; O2SAT 96
--- NOTE | 2023-10-26 09:54 | PC.NURSE ---
Pt okay to eat per SAFIA Amanda.
[2023-10-26 11:11] VITALS: BP 129/83; PULSE 69; RESP 17; TEMP 36.7; O2SAT 97
[2023-10-26 11:23] VITALS: BP 129/83; PULSE 69; RESP 17; TEMP 36.7; O2SAT 98
== END 2023-10-26 11:24 | disposition home or self-care (01) ==
PROVIDERS: Emergency Provider Emergency Medicine Emergency Medical Services
DX: M54.32 Sciatica, left side (principal); M25.552 Pain in left hip; I82.409 Acute embolism and thrombosis of unspecified deep veins of unspecified lower extremity; M32.9 Systemic lupus erythematosus, unspecified; I73.9 Peripheral vascular disease, unspecified; Z79.899 Other long term (current) drug therapy; Z79.01 Long term (current) use of anticoagulants
CPT/HCPCS: 73502; 93971; 99283; 99284

== ENCOUNTER 2023-11-04 08:40 | Outpatient (AMB) | payer MEDICAID, SELFPAY ==
--- NOTE | 2023-11-04 08:43 | MHC.OFFVIS ---
Intake Vital Signs 11/04/23 08:47 Height 5 ft 6 in Weight 209 lb 7.026 oz BMI 33.8 BP 114/77 Blood Pressure Location Lt brachial Position Sitting Pulse 82 Intake Visit Reasons: Gastroesophageal reflux disease (GERD) Intake Note: Ginette presents in the office as a follow up for GERD. CC: She is here today because severe acid reflux. Arthritis is acting up with her lupus. She also has a blood clot in her right leg. 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 Warehouse General Laborer Name: [id number] Allergies almond [ALMONDS] Allergy (Severe, Verified 11/04/23 08:48) ANAPHYLAXIS adhesive tape [ADHESIVE TAPE] Allergy (Intermediate, Verified 11/04/23 08:48) RASH morphine [MORPHINE] Allergy (Intermediate, Verified 11/04/23 08:48) GI UPSET, difficulty breathing tramadol [TRAMADOL] Adverse Reaction (Unknown, Verified 11/04/23 08:48) NAUSEA & VOMITING HPI Gastroesophageal reflux disease (GERD) HPI Details 48 yr old f with hx of SLE<RA< lymphoma, hx of DVT, being seen for f/u of Gi sx RECAP She had c/o pain lower chest and epigastrium for 5-6 months pain can go to the neck feels like a squeezing sensation, 10/10 in severity at times the pain can come on with sitting still watching TV, not worse with exertion she does have occ vomiting, and nausea usu in the morning pain wakes her at night food doesn;t affect denies heartburn, occ constipation, no blood in stool \ admits to dysphagia, since she had a biopsy done in her neck she was given gabapentin and referred pain management, her belkys was increased by dr mann, i suspected strong myofascial component TESTS: EGD/colon 09/2017- normal us 2017- gallstones, enlarged liver CT 2018- absent GB, abn fallopian tube, ovarian cyst. EGD 05/2019: with GEJ inflammation, LA grade A esophagitis, dilation with small tear \advised on PPI complaince and correct taking of medication Note labs with low b12 04/2019--156--repeat with supplements was >300 , gliadin ab pos At follow up 07/2019: swallowing was better, no choking, squeezing in lower chest, had been referred to cards for eval LABS: repeat mild celiac ab elevation, celiac gene test was neg for mutation ECG--06/2019--no signs of epicarditis, LAD, no acute changes seen Ba swallow 03/2021-- thin cervical esophageal web and tab held up at [facility] labs 09/2021-- nml LFt, HGB borderline Office 09/2021-- c/o chest pain, abdominal pain, sharp RUq pain where GB use to be and diarrhea pain and symptoms can be worse with rice or meat she still had some trouble swallowing EGD 10/08/21 bile acid reflux gastropathy esophagitis peptic duodenitis was given trial of ursodiol EGD 11/2022-- active esophagitis, dilation done US 12/2022-- fatty liver Interim: Her main issue is her RA, the hands and knees are swollen, saw rheum last week she has noted worsening dysphagia recently she also noted worsening reflux and diarrhea--diarrhea started yesterday and she started amoxil 3 d ago for dental infection she cant recall ursodiol but per my last note she reported it was helping, not taking it now no blood in stools EXAM: GENERAL: The patient is well developed and nontoxic. VITAL SIGNS:see workflow HEENT: Nonicteric sclerae, PERRLA, EOMI. Oropharynx clear. Moist mucous membranes. Conjunctivae appear well perfused. No thyroid mass. CHEST: Chest wall is nontender. HEART: Regular rate and rhythm without murmurs. LUNGS: Clear to auscultation bilaterally. ABDOMEN: Soft, positive bowel sounds, non tender , no organomegaly.no flank tenderness SKIN: loose big toe nail NEUROLOGIC: Cranial nerves II-XII intact without motor/sensory deficit. Joints: both hands swollen, right ankle swollen, can hardly walk a/P: 1/ dysphagia -on PPI which helps, dilation helped her before as well 2/ polyarthropathy and synovitis 3/ diarrhea might be 2/2 amoxil or due to her previous chronic diarrhea thought to be related to bile acid xs PLAN: 1/ refill ursodiol 2/ refill PPI 3/ schedule for EGD with dilation 4/ can try probiotics 5/ see if rheum can see today, if not will put her on pred 40 mg tapering dose until she can be seen, she has been intolerant of a lot of medications for RA in past [facility] Medical History PAD (peripheral artery disease) Skin lesion Knee pain, left Seropositive rheumatoid arthritis Anxiety Achilles tendinitis Superficial femoral artery occlusion Depression Hx of peripheral pulmonary artery stenosis History of chemotherapy Cancer of heart Bone cancer Lung cancer Bleeding hemorrhoid Degeneration, intervertebral disc, lumbar Chronic GERD Degeneration of intervertebral disc at C4-C5 level Osteoarthritis of spine with radiculopathy, lumbar region Fibromyalgia Esophageal dysphagia Vitamin D deficiency Systemic lupus erythematosus Seropositive rheumatoid arthritis Rheumatoid arthritis involving multiple sites Gallstones Stress incontinence in female Nocturia Urgency-frequency syndrome De Quervain's disease (tenosynovitis) Depressive disorder Acute arthritis Hodgkin disease Surgical History History of surgical removal of skin lesion (~07/13/23) History of angioplasty of vein History of biopsy H/O tubal ligation Hx of endoscopy Hx laparoscopic cholecystectomy Hx of colonoscopy History of esophagogastroduodenoscopy (EGD) History of repair of inguinal hernia History of lymph node dissection of left axilla Family History Maternal Grandmother Ovarian cancer Social History Household Members: Spouse Housing: Apartment Are you a primary human services care specialist to a significant other at home: No Do 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 have 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) Alcohol intake: never Comment: lozenge given [id number] Patient Tobacco Use Status: Current everyday Tobacco user Tobacco use type: Cigarette Cigarette Packs Per Day: 1 Substance Use Type: Marijuana Advance Directives Date on File: 09/23/20 service: No Current occupational status: disabled 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 Physical Exam Vital Signs: Last Vital Signs Pulse 82 11/04/23 08:47 BP 114/77 11/04/23 08:47 BMI result Body Mass Index 33.8 Assessment & Plan Assessment & Plan (1) Polyarthropathy: Code(s): M13.0 - Polyarthritis, unspecified Plan: a/P: 1/ dysphagia -on PPI which helps, dilation helped her before as well 2/ polyarthropathy and synovitis 3/ diarrhea might be 2/2 amoxil or due to her previous chronic diarrhea thought to be related to bile acid xs PLAN: 1/ refill ursodiol 2/ refill PPI 3/ schedule for EGD with dilation 4/ can try probiotics 5/ see if rheum can see today, if not will put her on pred 40 mg tapering dose until she can be seen, she has been intolerant of a lot of medications for RA in past Plan a/P: 1/ dysphagia -on PPI which helps, dilation helped her before as well 2/ polyarthropathy and synovitis 3/ diarrhea might be 2/2 amoxil or due to her previous chronic diarrhea thought to be related to bile acid xs PLAN: 1/ refill ursodiol 2/ refill PPI 3/ schedule for EGD with dilation 4/ can try probiotics 5/ see if rheum can see today, if not will put her on pred 40 mg tapering dose until she can be seen, she has been intolerant of a lot of medications for RA in past Medications: New ursodiol 500 mg PO BID 90 tabs 2RF Refilled pantoprazole 40 mg PO DAILY 90 tabs 1RF Coding Level of Care Code Est Pt Level 4 (15081) Diagnoses Polyarthropathy M13.0
[2023-11-04 08:47] VITALS: BP 114/77; PULSE 82; BMI 33.8
== END 2023-11-04 09:23 | disposition home or self-care (01) ==
PROVIDERS: PCP General Practice; Referring Provider General Practice; Visit Provider Internal Medicine Gastroenterology
DX: M13.0 Polyarthritis, unspecified (principal)
CPT/HCPCS: 99214

== ENCOUNTER → 2023-11-04 08:40 | Outpatient (BNVA) | payer MEDICAID, SELFPAY | PROVIDERS: PCP General Practice; Visit Provider Internal Medicine Gastroenterology ==

== ENCOUNTER 2023-11-04 09:29 | Emergency (ER) | payer MEDICAID, SELFPAY ==
--- NOTE | 2023-11-04 10:53 | PC.NURSE ---
not present for triage
[2023-11-04 11:03] VITALS: BP 135/78; PULSE 78; RESP 18; TEMP 36.6; O2SAT 100; BMI 29.0
--- NOTE | 2023-11-04 11:03 | ED.GENADULT ---
HPI - General Adult General Chief complaint: General Medical Stated complaint: Can't Feel Hands or Feet Time Seen by Provider: 11/04/23 13:26 Source: patient and cotton agent (all interactions with this patient were facilitated by an [facility] Cadd Technician) Mode of arrival: ambulatory Limitations: language barrier (all interactions with this patient were facilitated by an [facility] Cadd Technician) History of Present Illness HPI narrative: Patient is a 48 year old assigned female at with a history of fibromyalgia and PAD presenting to the emergency department today with upper and lower extremity swelling. Patient states that her GI team sent her here from their office because of this swelling. Patient states that her hands and feet feel stiff. Patient denies any dizziness, lightheadedness, abdominal pain, nausea, vomiting, fever, chills, blurry vision, double vision, loss of vision, chest pain, difficulty breathing, shortness of breath, back pain, night sweats, pain with urination, increased urinary frequency, increased urinary urgency, blood in her urine or stool, syncope or a near syncopal episode, recent trauma or falls, bowel incontinence, bladder incontinence, bowel retention, bladder retention, or any other complaints at this time. Relieving factors: none Exacerbating factors: none Associated symptoms: denies other symptoms Treatments prior to arrival: none Related Data Home Medications ?Medication ?Instructions ?Recorded ?Confirmed albuterol sulfate 90 mcg/actuation 2 puff PO Q4-6H PRN Wheezing 10/02/21 10/04/23 aerosol inhaler (ProAir HFA) ferrous sulfate 325 mg (65 mg 1 tab PO QAM 10/02/21 10/04/23 iron) tablet (FeroSul) gabapentin 400 mg capsule 400 mg PO TID 10/22/21 10/04/23 docusate sodium 100 mg capsule 100 mg PO BEDTIME PRN Constipation 04/19/22 10/04/23 apixaban 5 mg tablet (Eliquis) 5 mg PO BID 09/22/22 10/04/23 alprazolam 1 mg tablet 1 mg PO BEDTIME PRN Anxiety 12/10/22 10/04/23 benztropine 0.5 mg tablet 0.5 mg PO QAM 01/17/23 10/04/23 lidocaine 5 % topical patch 1 patch topical DAILY PRN Pain 04/20/23 10/04/23 (Lidoderm) famotidine 20 mg tablet 20 mg PO BID 05/16/23 10/04/23 oxycodone-acetaminophen 5 mg-325 1 tab PO Q8H PRN severe pain 05/16/23 10/04/23 mg tablet risperidone 1 mg tablet mg PO 05/16/23 10/04/23 bupropion HCl 150 mg tablet,12 hr mg PO 06/09/23 10/04/23 sustained-release fluticasone propionate 50 2 spray intranasal QAM 06/09/23 10/04/23 mcg/actuation nasal spray,suspension ibuprofen 600 mg tablet 600 mg PO Q8H PRN mild pain 06/09/23 10/04/23 sertraline 50 mg tablet (Zoloft) 75 mg PO DAILY 07/13/23 10/04/23 trazodone 150 mg tablet 150 mg PO BEDTIME PRN 07/13/23 10/04/23 vitamin A 3,000 mcg (10,000 unit) 1 cap PO QAM 07/13/23 10/04/23 capsule acetaminophen 650 mg 650 mg PO Q8H PRN pain 10/25/23 tablet,extended release amoxicillin 500 mg capsule 500 mg PO Q8H 10/25/23 chlorhexidine gluconate 0.12 % 15 ml PO DAILY PRN 10/25/23 mouthwash Previous Rx's ?Medication ?Instructions ?Recorded acetaminophen 500 mg tablet 500 - 1,000 mg (1 - 2 x 500 mg) PO 09/22/22 Q8-10H PRN pain #100 tabs umeclidinium 62.5 mcg/actuation 1 inh PO DAILY #30 ea 11/29/22 blister powder for inhalation (Incruse Ellipta) cholecalciferol (vitamin D3) 25 25 mcg PO QAM #90 caps 02/28/23 mcg (1,000 unit) capsule (Vitamin D3) nicotine 21 mg/24 hr daily 21 mg transdermal DAILY #30 ea 04/21/23 transdermal patch vitamin A palmitate 3,000 mcg 10,000 unit PO DAILY #90 tabs 06/15/23 (10,000 unit) tablet cilostazol 100 mg tablet 100 mg PO BID #180 tabs 07/14/23 ascorbic acid (vitamin C) 500 mg 1,000 mg (2 x 500 mg) PO QAM #180 09/06/23 tablet (Vitamin C) tabs folic acid 1 mg tablet 1 mg PO QAM #90 tabs 10/04/23 methotrexate sodium 2.5 mg tablet 20 mg (8 x 2.5 mg) PO QWEEK #96 10/04/23 tabs prednisone 2.5 mg tablet 2.5 mg PO DAILY #90 tabs 10/05/23 Olumiant 2 mg tablet (baricitinib) 2 mg PO DAILY #30 tabs 10/24/23 lidocaine 5 % topical patch 1 patch topical DAILY #15 ea 10/24/23 lidocaine 5 % topical patch 1 patch topical DAILY #15 ea 10/26/23 (Lidoderm) pantoprazole 40 mg tablet,delayed 40 mg PO DAILY #90 tabs 11/04/23 release ursodiol 500 mg tablet 500 mg PO BID #90 tabs 11/04/23 Allergies Allergy/AdvReac Type Severity Reaction Status Date / Time almond [ALMONDS] Allergy Severe ANAPHYLAXIS Verified 11/04/23 11:04 adhesive tape [ADHESIVE TAPE] Allergy Intermediate RASH Verified 11/04/23 11:04 morphine [MORPHINE] Allergy Intermediate GI UPSET, Verified 11/04/23 11:04 difficulty breathing tramadol [TRAMADOL] AdvReac Unknown NAUSEA & Verified 11/04/23 11:04 VOMITING Review of Systems Constitutional: Constitutional: Reports no additional constitutional complaints, Denies chills, Denies fever(s) and Denies night sweats Eyes: Eyes: Reports no additional eye complaints, Denies blurry vision, Denies change in vision, Denies diplopia, Denies eye discharge, Denies loss of vision and Denies eye pain ENT: Denies dizziness Cardiovascular: Cardiovascular: Reports no additional cardiovascular complaints, Denies chest pain, Denies lightheadedness, Denies Loss of Consciousness and Denies dyspnea Respiratory: Respiratory: Reports no additional respiratory complaints and Denies dyspnea Gastrointestinal: Gastrointestinal: Reports no additional gastrointestinal complaints, Denies abdominal pain, Denies melena, Denies hematochezia, Denies change in bowel habits and Denies change in stool character Genitourinary: Genitourinary: Denies hematuria, Denies urinary frequency, Denies dysuria, Denies urinary incontinence, Denies urinary hesitancy and Denies urinary urgency Musculoskeletal: Musculoskeletal: Reports no additional musculoskeletal complaints, Denies numbness and Denies tingling Comments: bilateral upper and lower extremity swelling Neurologic: Denies dizziness, Denies loss of vision, Denies numbness and Denies tingling Psychiatric: Psychiatric: Reports no additional psychiatric complaints Endocrine: Endocrine: Reports no additional endocrine complaints Hematologic/Lymphatic: Hematologic/Lymphatic: Reports no additional hematologic/lymphatic complaints Allergic/Immunologic: Allergic/Immunologic: Reports no additional allergic/immunologic complaints [facility] Past Medical History Attestation statement: The following information was validated with the patient. Source: old records reviewed and nursing notes reviewed Medical History PAD (peripheral artery disease) Skin lesion Knee pain, left Seropositive rheumatoid arthritis Anxiety Achilles tendinitis Superficial femoral artery occlusion Depression Hx of peripheral pulmonary artery stenosis History of chemotherapy Cancer of heart Bone cancer Lung cancer Bleeding hemorrhoid Degeneration, intervertebral disc, lumbar Chronic GERD Degeneration of intervertebral disc at C4-C5 level Osteoarthritis of spine with radiculopathy, lumbar region Fibromyalgia Esophageal dysphagia Vitamin D deficiency Systemic lupus erythematosus Seropositive rheumatoid arthritis Rheumatoid arthritis involving multiple sites Gallstones Stress incontinence in female Nocturia Urgency-frequency syndrome De Quervain's disease (tenosynovitis) Depressive disorder Acute arthritis Hodgkin disease Surgical History History of surgical removal of skin lesion (~07/13/23) History of angioplasty of vein History of biopsy H/O tubal ligation Hx of endoscopy Hx laparoscopic cholecystectomy Hx of colonoscopy History of esophagogastroduodenoscopy (EGD) History of repair of inguinal hernia History of lymph node dissection of left axilla Family History Family History Maternal Grandmother Ovarian cancer Social History Social History Household Members: Spouse Housing: Apartment Are you a primary field care manager to a significant other at home: No Do 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 have 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) Alcohol intake: never Comment: lozenge given [id number] Patient Tobacco Use Status: Current everyday Tobacco user Tobacco use type: Cigarette Cigarette Packs Per Day: 1 Substance Use Type: Marijuana Advance Directives: No Advance Directives Information Provided: No Advance Directives Date on File: 09/23/20 service: No Current occupational status: disabled 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 Physical Exam ED Vital Signs: Vital Signs - 24 hr 11/04/23 11:03 Temperature 97.9 F Pulse Rate 78 Respiratory Rate 18 Blood Pressure 135/78 Pulse Oximetry 100 Oxygen Delivery Method Room Air BMI result Body Mass Index 29.0 Const General: cooperative, no acute distress, alert and awake Nutritional Appearance: well nourished Orientation/consciousness: patient oriented x3 Limitations: no limitations HENMT Head: Yes normal to inspection and Yes atraumatic Ears: hearing grossly normal bilaterally and external ears normal General nose exam: Normal external nose present, no nasal discharge noted and no epistaxis Face and sinus: Yes normal facial exam, No abrasion and No laceration Mouth: Normal oral and palatal mucosa present, no drooling and no muffled voice Eyes General: appearance normal, both eyes and all related structures Periorbital: periorbital findings normal Eyelids: Yes eyelids normal Conjunctivae: conjunctivae normal Pupils: Equal, round and reactive pupils present EOM: EOMs intact bilaterally Neck Neck: Yes normal visual inspection, Yes full ROM and Yes no lymphadenopathy Chest Chest palpation & inspection: normal inspection of the chest Resp Effort & Inspection: normal respiratory effort and able to speak in complete sentences GI Inspection: Yes normal to inspection Neuro General: patient oriented x3 and moves all extremities Cranial nerves: Yes Equal, round and reactive pupils present Cognition (Neuro): normal cognition Motor exam (neuro): 5/5 motor strength present throughout Sensory Exam: Normal double simultaneous stimulation for sensation Coordination: [id number] test normal Extrem General: Yes normal to inspection, Yes full ROM and Yes capillary refill normal Psych Appearance: grossly normal Mental Status: mental status grossly normal Affect: normal affect Attitude: cooperative Thought process: Normal thought process present Thought content: Normal thought content present Insight: Good insight present (Psych) Course Course Course Narrative: RME performed by Tessa Olguin PA-C. Patient is a 48 year old assigned female at presenting to the emergency department with extremity swelling. Detailed physical exam and review of systems are deferred to the sample shoe inspector and reworker. Labs ordered. Patient placed back in the waiting room pending room availability and results. Medical Decision Making Medical Decision Making MDM Narrative: Patient is a 48 year old assigned female at with a history of fibromyalgia and PAD presenting to the emergency department today with bilateral upper and lower extremity swelling. Patient's limited physical exam performed in triage was unremarkable. Blood work was ordered but never drawn due to the patient leaving the department before it could be done. Patient left the department before myself or any of the other emergency department clinicians could explain to or review with the patient; physical exam findings, need or lack there of for additional testing, need or lack there of to perform a procedure, need or lack there of for hospital admission / transfer, need or lack there of for prescription medication, treatment options, or a treatment plan. Differential Diagnosis Differential Diagnoses: The differential diagnosis associated with the presentation includes Extremity swelling Admission/Observation Consideration of admission/observation: Escalation of care including admission/observation considered Patient would have been admitted to the hospital had she completed her work up and it had any findings where hospital admission was appropriate, her clinical presentation warranted hospital admission, had myself or any other emergency viscose department worker had the ability to discuss need or lack there of for hospital admission, and the patient hadn't left the department without completing treatment. Discharge Plan Discharge Clinical Impression: Swelling of extremity Patient Disposition: Left W/O Completing Treatment Prescriptions: No Action Incruse Ellipta 62.5 mcg/actuation blister with device 1 inh PO DAILY Qty: 30 6RF cholecalciferol (vitamin D3) [Vitamin D3] 25 mcg (1,000 unit) capsule 25 mcg PO QAM Qty: 90 2RF vitamin A palmitate 3,000 mcg (10,000 unit) tablet 10,000 unit PO DAILY Qty: 90 1RF ascorbic acid (vitamin C) [Vitamin C] 500 mg tablet 1,000 mg PO QAM Qty: 180 2RF prednisone 2.5 mg tablet 2.5 mg PO DAILY Qty: 90 0RF Olumiant 2 mg tablet 2 mg PO DAILY Qty: 30 0RF gabapentin 400 mg capsule 400 mg PO TID ferrous sulfate [FeroSul] 325 mg (65 mg iron) tablet 1 tab PO QAM albuterol sulfate [ProAir HFA] 90 mcg/actuation HFA aerosol inhaler 2 puff PO Q4-6H PRN (Reason: Wheezing) lidocaine 5 % adhesive patch,medicated 1 patch topical DAILY Qty: 15 0RF Rx Instructions: leave on most painful area for up to 12 hrs lidocaine [Lidoderm] 5 % adhesive patch,medicated 1 patch topical DAILY Qty: 15 0RF Rx Instructions: leave on most painful area for up to 12 hrs lidocaine [Lidoderm] 5 % adhesive patch,medicated 1 patch topical DAILY PRN (Reason: Pain) Rx Instructions: leave on most painful area for up to 12 hrs nicotine 21 mg/24 hr Patch 24 Hour 21 mg transdermal DAILY Qty: 30 0RF docusate sodium 100 mg capsule 100 mg PO BEDTIME PRN (Reason: Constipation) alprazolam 1 mg tablet 1 mg PO BEDTIME PRN (Reason: Anxiety) Eliquis 5 mg tablet 5 mg PO BID acetaminophen 500 mg tablet 500 - 1,000 mg PO Q8-10H PRN (Reason: pain) Qty: 100 4RF ibuprofen 600 mg tablet 600 mg PO Q8H PRN (Reason: mild pain) bupropion HCl 150 mg tablet sustained-release 12 hr PO fluticasone propionate 50 mcg/actuation spray,suspension 2 spray intranasal QAM cilostazol 100 mg tablet 100 mg PO BID Qty: 180 1RF sertraline [Zoloft] 50 mg tablet 75 mg PO DAILY trazodone 150 mg tablet 150 mg PO BEDTIME PRN vitamin A 3,000 mcg (10,000 unit) capsule 1 cap PO QAM chlorhexidine gluconate 0.12 % mouthwash 15 ml PO DAILY PRN acetaminophen 650 mg tablet extended release 650 mg PO Q8H PRN (Reason: pain) amoxicillin 500 mg capsule 500 mg PO Q8H pantoprazole 40 mg tablet,delayed release (DR/EC) 40 mg PO DAILY Qty: 90 1RF ursodiol 500 mg tablet 500 mg PO BID Qty: 90 2RF benztropine 0.5 mg tablet 0.5 mg PO QAM oxycodone-acetaminophen 5-325 mg tablet 1 tab PO Q8H PRN (Reason: severe pain) famotidine 20 mg tablet 20 mg PO BID risperidone 1 mg tablet PO methotrexate sodium 2.5 mg tablet 20 mg PO QWEEK Qty: 96 1RF folic acid 1 mg tablet 1 mg PO QAM Qty: 90 1RF Discharge Date/Time: 11/04/23 13:55
== END 2023-11-04 13:55 | disposition left against medical advice (07) ==
LOC: HO.ED 13:52
PROVIDERS: Emergency Provider Emergency Medicine; PCP General Practice
DX: M79.89 Other specified soft tissue disorders (principal); M79.7 Fibromyalgia; I73.9 Peripheral vascular disease, unspecified; K21.9 Gastro-esophageal reflux disease without esophagitis; M13.0 Polyarthritis, unspecified; R13.10 Dysphagia, unspecified; R19.7 Diarrhea, unspecified
CPT/HCPCS: 99212; 99281

== ENCOUNTER 2023-11-07 12:01 | Outpatient (REF) | payer MEDICAID, SELFPAY ==
[2023-11-07 13:36] LABS: Appearance Urine Clear; Color Urine Dark Yellow; Glucose Urine UA Negative (Negative); Leukocyte Esterase Urine Negative (Negative); Nitrite Urine Negative (Negative); PH 5.5 (5.0-9.0); Specific Gravity - Urine 1.025 (1.005-1.025); Urine Blood Negative (Negative); Urine Ketones Trace mg/dL (Negative); Urine Protein Trace mg/dL (Neg-Trace)
[2023-11-07 13:43] LABS: Bacteria Urine Trace (None Seen); Hyaline Casts Urine 0-2 /LPF (0-2); RBC Urine 0-2 /HPF (0-2); WBC Urine 0-5 /HPF (0-5)
[2023-11-07 14:07] LABS: MANUAL DIFF FLAG NO
[2023-11-07 14:08] LABS: Basophils Percent Auto 0.2 % (0-2); Eosinophils Percent Auto 0.7 % (0-4); Hematocrit 37.1 % (37.0-47.0); Hemoglobin 11.9 g/dl (12.0-16.0); Imm Gran Abs Auto 0.01 X10*3/uL (0.00-0.03); Imm Gran Pct Auto 0.2 % (0.0-0.4); Lymphocytes Absolute Auto 1.3 X10*3/uL (1.2-4.9); Lymphocytes Percent Auto 22.3 % (20-40); Mean Corpuscular HGB Conc 32.1 g/dl (31.0-35.0); Mean Corpuscular Hemoglobin 30.4 pg (27.0-33.0); Mean Corpuscular Volume 94.6 fL (80.0-98.0); Mean Platelet Volume 10.1 fL (9.4-12.3); Monocytes Absolute Auto 0.3 X10*3/uL (0.1-1.2); Neutrophils Percent Auto 70.6 % (45-73); Platelet Count 320 X10*3/uL (160-400); Red Blood Count 3.92 X10*6/uL (4.20-5.50); Red Cell Distribution Width 13.3 % (11.0-16.0); White Blood Count 5.6 X10*3/uL (4.8-10.8)
[2023-11-07 14:23] LABS: Alanine Aminotransferase 13 U/L (0-31); Albumin Level 4.2 g/dL (3.5-5.0); Alkaline Phosphatase 77 U/L (39-117); Anion Gap 12 (12-20); Aspartate Amino Transferase 17 U/L (5-31); Bilirubin Total 0.3 mg/dL (0.0-1.0); Blood Urea Nitrogen 11 mg/dL (9-16); C Reactive Protein 2.64 mg/dL (< or = 0.50); Calcium 9.9 mg/dL (8.4-10.2); Carbon Dioxide 26 mmol/L (22-29); Chloride 104 mmol/L (96-108); Estimated Glomerular Filt Rate > 60; Glucose Random 93 mg/dL (60-115); Sodium 138 mmol/L (135-145); Total Protein 9.6 g/dL (6.5-8.0)
[2023-11-07 14:51] LABS: Erythrocyte Sedimentation Rate 88 MM/HR (0-20)
[2023-11-07 20:07] LABS: Creatinine Urine 334.47 mg/dL; Protein/Creatinine Ratio, Ur 0.05 (<0.2); Total Protein Urine Random 16 mg/dL (<12)
[2023-11-08 09:23] LABS: HBS Num1 4.32 mIU/mL (0-7.99); HBc Num1 0.35 S/CO (0.00-0.79); HBsAGNum1 0.26 S/CO (0.00-0.99); Hepatitis A Antibody IgM 0.31 Index (0-0.79); Hepatitis B Core Antibody Nonreactive (Nonreactive); Hepatitis B Surface Antigen Negative (Negative); ~HepC Num1 0.34 S/CO (0.00-0.79); ~Hepatitis A Antibody IgM Nonreactive (Nonreactive); ~Hepatitis B Surface Antibody NONREACTIVE (Nonreactive); ~Hepatitis C Antibody Nonreactive (Nonreactive)
[2023-11-08 11:58] LABS: Complement C3 123 mg/dL (83-193)
[2023-11-08 13:58] LABS: Anti DNA DS Antibody 1 IU/mL
[2023-11-10 07:43] LABS: TS Negative Control Passed; TS Panel A 12; TS Panel B 11; TS Positive Control Passed; TSpotTB Positive (Negative)
[2023-11-12 00:08] LABS: DNAds, Crithidia Antibody Positive (Negative)
== END 2023-11-07 12:02 | disposition home or self-care (01) ==
LOC: HO.HHCL 12:01
PROVIDERS: Visit Provider Student in an Organized Health Care Education/Training Program
DX: M32.9 Systemic lupus erythematosus, unspecified (principal); M05.9 Rheumatoid arthritis with rheumatoid factor, unspecified; Z11.59 Encounter for screening for other viral diseases; Z11.7 Encounter for testing for latent tuberculosis infection
CPT/HCPCS: 36415; 80053; 81001; 82570; 84156; 85025; 85652; 86140; 86160; 86225; 86255; 86481; 86704; 86706; 86709; 86803; 87340

== ENCOUNTER 2023-11-16 13:33 | Outpatient (AMB) | payer MEDICAID, SELFPAY ==
--- NOTE | 2023-11-16 14:03 | A.OFFVIS_ITS ---
Vital Signs 11/16/23 14:43 Height 5 ft 6 in Weight 199 lb BMI 32.1 Pulse 82 Pulse Source Pulse Oximeter Pulse Oximetry (%) 97 Intake Visit Reasons: reff rhemo/cell mediated immunity Flight Software Test Engineer Required: Yes Flight Software Test Engineer Name: Chad Martinez SURVEYING TEACHER Information Interpreted: clinical only Allergies almond [ALMONDS] Allergy (Severe, Verified 11/16/23 14:46) ANAPHYLAXIS adhesive tape [ADHESIVE TAPE] Allergy (Intermediate, Verified 11/16/23 14:46) RASH morphine [MORPHINE] Allergy (Intermediate, Verified 11/16/23 14:46) GI UPSET, difficulty breathing tramadol [TRAMADOL] Adverse Reaction (Unknown, Verified 11/16/23 14:46) NAUSEA & VOMITING HPI HPI reff rhemo/cell mediated immunity: Details: She is here for evaluation positive T spot. She has positive T spot obtained due to need for immunosuppressive therapy for RA. She has no prior positive TB testing. She has no cough or lymphadenopathy PFSH Medical History PAD (peripheral artery disease) Skin lesion Knee pain, left Seropositive rheumatoid arthritis Anxiety Achilles tendinitis Superficial femoral artery occlusion Depression Hx of peripheral pulmonary artery stenosis History of chemotherapy Cancer of heart Bone cancer Lung cancer Bleeding hemorrhoid Degeneration, intervertebral disc, lumbar Chronic GERD Degeneration of intervertebral disc at C4-C5 level Osteoarthritis of spine with radiculopathy, lumbar region Fibromyalgia Esophageal dysphagia Vitamin D deficiency Systemic lupus erythematosus Seropositive rheumatoid arthritis Rheumatoid arthritis involving multiple sites Gallstones Stress incontinence in female Nocturia Urgency-frequency syndrome De Quervain's disease (tenosynovitis) Depressive disorder Acute arthritis Hodgkin disease Surgical History History of surgical removal of skin lesion (~07/13/23) History of angioplasty of vein History of biopsy H/O tubal ligation Hx of endoscopy Hx laparoscopic cholecystectomy Hx of colonoscopy History of esophagogastroduodenoscopy (EGD) History of repair of inguinal hernia History of lymph node dissection of left axilla Family History Maternal Grandmother Ovarian cancer Social History Household Members: Spouse Housing: Apartment Are you a primary career development counselor to a significant other at home: No Do 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 have 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) Alcohol intake: never Comment: lozenge given 0825 Patient Tobacco Use Status: Current everyday Tobacco user Tobacco use type: Cigarette Cigarette Packs Per Day: 1 Substance Use Type: Marijuana Advance Directives Date on File: 09/23/20 service: No Current occupational status: disabled 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 of Systems Const All systems reviewed & are unremarkable except as noted in HPI and below Physical Exam Vital Signs: Last Vital Signs Pulse 82 11/16/23 14:43 Pulse Ox 97 11/16/23 14:43 BMI result Body Mass Index 32.1 Const General: cooperative Orientation/consciousness: patient oriented x3 HEENT Head: Yes normal to inspection Mouth: Normal oral and palatal mucosa present Eyes General: appearance normal, both eyes and all related structures Pupils: Equal, round and reactive pupils present Resp Effort & Inspection: normal respiratory effort Cardio Rate: regular rate Rhythm: regular rhythm GI Palpation (GI): Soft to palpation and nontender General: Yes no CVA tenderness Back/Spine/Pelvis Back: no CVA tenderness Skin General skin exam: no rashes or lesions noted Neuro General: patient oriented x3 Cranial nerves: Yes CN's II-XII intact bilaterally and Yes Equal, round and reactive pupils present Extrem General: Yes normal to inspection Psych Appearance: grossly normal Assessment & Plan Assessment & Plan (1) Positive QuantiFERON-TB Gold test: Code(s): R76.12 - Nonspecific reaction to cell mediated immunity measurement of gamma interferon antigen response without active tuberculosis Category: Medical Plan: Probable false positive with no prior positive TB or exposure and no symptoms and negative CXR as well as repeat testing negative. No further evaluation or restrictions on medication at this time. (2) Polyarthropathy: Code(s): M13.0 - Polyarthritis, unspecified Category: Medical Plan: na (3) Seropositive rheumatoid arthritis: Comment: RF++CCP++ regularly requiring prednisone. methotrexate and hydroxychloroquine ?2019 Xelshaiz 05/2020-08/2020(ineffective) 2020 methotrexate and Humira(HCQ stopped - ?vision changes). 06/2022 Humira stopped due to poor repsonse 06/2022 methotrexate and Actemra 12/2022: Actemra stopped by the patient. She had some leg swelling as well. 03/10/2023 and 03/24/23: 1 g on each day rituximab administered Olumiant 08/2023 effective Code(s): M05.9 - Rheumatoid arthritis with rheumatoid factor, unspecified Category: Medical Plan: na Orders: Orders T Spot TB 11/17/23 R76.12 - Nonspecific reaction to cell mediated immunity measurement of gamma interferon antigen response without active tuberculosis Coding Level of Care Code New Pt Level 4 (54917) Diagnoses Positive QuantiFERON-TB Gold test R76.12 Polyarthropathy M13.0 Seropositive rheumatoid arthritis M05.9
[2023-11-16 14:43] VITALS: PULSE 82; O2SAT 97; BMI 32.1
== END 2023-11-16 15:52 | disposition home or self-care (01) ==
LOC: HO.HID 13:33
PROVIDERS: PCP General Practice; Referring Provider General Practice; Visit Provider Internal Medicine
DX: R76.12 Nonspecific reaction to cell mediated immunity measurement of gamma interferon antigen response without active tuberculosis (principal); M13.0 Polyarthritis, unspecified; M05.9 Rheumatoid arthritis with rheumatoid factor, unspecified
CPT/HCPCS: 99204

== ENCOUNTER → 2023-11-16 13:33 | Outpatient (BNVA) | payer MEDICAID, SELFPAY | PROVIDERS: PCP General Practice; Visit Provider Internal Medicine | DX: M05.9 Rheumatoid arthritis with rheumatoid factor, unspecified (principal); M13.0 Polyarthritis, unspecified; R76.12 Nonspecific reaction to cell mediated immunity measurement of gamma interferon antigen response without active tuberculosis | CPT/HCPCS: 99202 ==

== ENCOUNTER 2023-11-17 08:37 | Outpatient (REF) | payer MEDICAID, SELFPAY ==
[2023-11-20 12:58] LABS: TS Negative Control Passed; TS Panel A 0; TS Panel B 2; TS Positive Control Passed; TSpotTB Negative (Negative)
== END 2023-11-17 08:38 | disposition home or self-care (01) ==
LOC: HO.LAB 08:37
PROVIDERS: Absent Provider General Practice; PCP General Practice; Visit Provider Internal Medicine
DX: R76.12 Nonspecific reaction to cell mediated immunity measurement of gamma interferon antigen response without active tuberculosis (principal)
CPT/HCPCS: 36415; 86481

== ENCOUNTER 2023-11-25 13:44 | Outpatient (REF) | payer MEDICAID, SELFPAY ==
--- NOTE | ~2023-11-25 | MR_ITS ---
EXAMINATION: MR PELVIS WITHOUT AND WITH CONTRAST CLINICAL INFORMATION: 48-year-old female with history of abnormal menses. Heterogeneous myometrial echotexture on ultrasound exam. COMPARISON: Pelvic ultrasound from 10/20/2023. Pelvis MRI from 01/15/2014. CT angiography from 04/21/2023. TECHNIQUE: MR imaging of the pelvis is performed on a high-field magnet using standard sequences without and with intravenous administration of 8.5 mL Gadavist. FINDINGS: UTERUS AND CERVIX: The anteflexed, anteverted uterus measures 7.8 x 3.6 x 4.3 cm ([id number]-[id number] x AP x transverse dimension). The junctional zone of myometrium is normal. It has a thickness of 0.8 cm. No evidence of adenomyosis. No evidence of uterine leiomyomas. The cervix and vaginal canal are normal. The endometrium is normal and measures 0.2 cm AP dimension. No focal endometrial lesion. ADNEXA: The right ovary is 1.9 x 1.3 x 1.5 cm and left ovary is 0.3 x 1.4 x 2.2 cm. No evidence of hemorrhagic ovarian cyst or endometriosis. FREE FLUID: None. LYMPHOVASCULAR: Note that the iliac arteries are not well evaluated on this examination. 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 The iliac veins are normal. No pathologic sized iliac or inguinal lymph nodes. URINARY BLADDER: Urinary bladder and urethra are normal. GASTROINTESTINAL: No dilated bowel loops. The sigmoid colon and rectum are unremarkable. ABDOMINAL WALL: Large body habitus. Small fat-containing left inguinal hernia is noted. MUSCULOSKELETAL: No suspicious osseous lesions. There appears to be very small central disc protrusion at L4-L5. Moderate loss of disc height and disc bulge at L5-S1 with traction osteophyte formation and type 2 Modic signal changes at endplates. There is a focal zone of osteonecrosis in the anterosuperior left femoral head without articular surface collapse. There is an area of edema-like signal change within the distal left iliopsoas without intramuscular hematoma or mass, consistent with mild muscle strain. MR/MR pelvis wo/w con IMPRESSION: * Normal uterus and ovaries. No evidence of uterine adenomyosis or endometriosis. * Small fat-containing left inguinal hernia. * There is stage 2 osteonecrosis of the anterosuperior left femoral head. * Mild edema-like signal change within the distal left iliopsoas is consistent with mild muscle strain.
[2023-11-25] MEDS: gadobutroL 10 ML VIAL IVPUSH (15:09)
== END 2023-11-25 13:45 | disposition home or self-care (01) ==
LOC: HO.MRI 13:44
PROVIDERS: PCP General Practice; Visit Provider General Practice
DX: R93.89 Abnormal findings on diagnostic imaging of other specified body structures (principal)
CPT/HCPCS: 72197; A9585

== ENCOUNTER 2023-12-02 07:54 | Emergency (ER) | payer MEDICAID, SELFPAY ==
--- NOTE | ~2023-12-02 | XR_ITS ---
EXAMINATION: XR CHEST CLINICAL INFORMATION: Shortness of breath. COMPARISON: Most recent chest radiograph dated 09/21/2023. TECHNIQUE: Frontal view of the chest was obtained. FINDINGS: No airspace consolidation. No pleural effusion or pneumothorax. Stable cardiac mediastinal silhouette. Right axillary surgical clips. Minimal right infraspinous calcific tendinitis. XR/XR chest 1V IMPRESSION: No acute cardiopulmonary findings.
[2023-12-02 07:58] VITALS: BP 127/87; PULSE 96; RESP 17; TEMP 35.8; O2SAT 98; BMI 29.0
--- NOTE | 2023-12-02 10:09 | ED_ITS ---
HPI - General Adult General Chief complaint: General Medical Stated complaint: body pain Time Seen by Provider: 12/02/23 10:07 Source: patient Mode of arrival: ambulatory Limitations: no limitations History of Present Illness HPI narrative: 48 yo f with pmhx of Hodgkin disease, polyarthropathy, DVT, PAD, fibromyalgia, SLE, RA presents with r hand pain, l left pain. She states it feels like a burning feeling. She said it started this morning, as it woke her up at 3:00 AM today. She took a percocet, but it did not help her pain. She stated that she has associated cp, sob, and dizziness. Denies fevers, chills, headaches, nausea, vomiting, diarrhea, numbness, tingling, trauma. Related Data Home Medications ?Medication ?Instructions ?Recorded ?Confirmed albuterol sulfate 90 mcg/actuation 2 puff PO Q4-6H PRN Wheezing 10/02/21 10/04/23 aerosol inhaler (ProAir HFA) ferrous sulfate 325 mg (65 mg 1 tab PO QAM 10/02/21 10/04/23 iron) tablet (FeroSul) gabapentin 400 mg capsule 400 mg PO TID 10/22/21 10/04/23 docusate sodium 100 mg capsule 100 mg PO BEDTIME PRN Constipation 04/19/22 10/04/23 apixaban 5 mg tablet (Eliquis) 5 mg PO BID 09/22/22 10/04/23 alprazolam 1 mg tablet 1 mg PO BEDTIME PRN Anxiety 12/10/22 10/04/23 benztropine 0.5 mg tablet 0.5 mg PO QAM 01/17/23 10/04/23 lidocaine 5 % topical patch 1 patch topical DAILY PRN Pain 04/20/23 10/04/23 (Lidoderm) famotidine 20 mg tablet 20 mg PO BID 05/16/23 10/04/23 oxycodone-acetaminophen 5 mg-325 1 tab PO Q8H PRN severe pain 05/16/23 10/04/23 mg tablet risperidone 1 mg tablet mg PO 05/16/23 10/04/23 bupropion HCl 150 mg tablet,12 hr mg PO 06/09/23 10/04/23 sustained-release fluticasone propionate 50 2 spray intranasal QAM 06/09/23 10/04/23 mcg/actuation nasal spray,suspension ibuprofen 600 mg tablet 600 mg PO Q8H PRN mild pain 06/09/23 10/04/23 sertraline 50 mg tablet (Zoloft) 75 mg PO DAILY 07/13/23 10/04/23 trazodone 150 mg tablet 150 mg PO BEDTIME PRN 07/13/23 10/04/23 vitamin A 3,000 mcg (10,000 unit) 1 cap PO QAM 07/13/23 10/04/23 capsule acetaminophen 650 mg 650 mg PO Q8H PRN pain 10/25/23 tablet,extended release amoxicillin 500 mg capsule 500 mg PO Q8H 10/25/23 chlorhexidine gluconate 0.12 % 15 ml PO DAILY PRN 10/25/23 mouthwash Previous Rx's ?Medication ?Instructions ?Recorded acetaminophen 500 mg tablet 500 - 1,000 mg (1 - 2 x 500 mg) PO 09/22/22 Q8-10H PRN pain #100 tabs umeclidinium 62.5 mcg/actuation 1 inh PO DAILY #30 ea 11/29/22 blister powder for inhalation (Incruse Ellipta) nicotine 21 mg/24 hr daily 21 mg transdermal DAILY #30 ea 04/21/23 transdermal patch vitamin A palmitate 3,000 mcg 10,000 unit PO DAILY #90 tabs 06/15/23 (10,000 unit) tablet cilostazol 100 mg tablet 100 mg PO BID #180 tabs 07/14/23 ascorbic acid (vitamin C) 500 mg 1,000 mg (2 x 500 mg) PO QAM #180 09/06/23 tablet (Vitamin C) tabs folic acid 1 mg tablet 1 mg PO QAM #90 tabs 10/04/23 prednisone 2.5 mg tablet 2.5 mg PO DAILY #90 tabs 10/05/23 lidocaine 5 % topical patch 1 patch topical DAILY #15 ea 10/24/23 lidocaine 5 % topical patch 1 patch topical DAILY #15 ea 10/26/23 (Lidoderm) pantoprazole 40 mg tablet,delayed 40 mg PO DAILY #90 tabs 11/04/23 release ursodiol 500 mg tablet 500 mg PO BID #90 tabs 11/04/23 baricitinib 2 mg tablet (Olumiant) 2 mg PO DAILY #30 tabs 11/17/23 methotrexate sodium 2.5 mg tablet 20 mg (8 x 2.5 mg) PO QWEEK #96 11/24/23 tabs vitamin A 3,000 mcg (10,000 unit) 1 cap PO QAM #90 caps 11/30/23 capsule acetaminophen 325 mg capsule 325 mg PO Q4H PRN pain #30 caps 12/02/23 (Tylenol) prednisone 20 mg tablet 40 mg (2 x 20 mg) PO DAILY 5 days 12/02/23 #10 tabs Allergies Allergy/AdvReac Type Severity Reaction Status Date / Time almond [ALMONDS] Allergy Severe ANAPHYLAXIS Verified 12/02/23 08:00 adhesive tape [ADHESIVE TAPE] Allergy Intermediate RASH Verified 12/02/23 08:00 morphine [MORPHINE] Allergy Intermediate GI UPSET, Verified 12/02/23 08:00 difficulty breathing tramadol [TRAMADOL] AdvReac Unknown NAUSEA & Verified 12/02/23 08:00 VOMITING Review of Systems 2 Review of Systems: Yes all other systems are reviewed and are negative PMFSH Past Medical History Attestation statement: The following information was validated with the patient. Source: old records reviewed and nursing notes reviewed Medical History PAD (peripheral artery disease) Skin lesion Knee pain, left Seropositive rheumatoid arthritis Anxiety Achilles tendinitis Superficial femoral artery occlusion Depression Hx of peripheral pulmonary artery stenosis History of chemotherapy Cancer of heart Bone cancer Lung cancer Bleeding hemorrhoid Degeneration, intervertebral disc, lumbar Chronic GERD Degeneration of intervertebral disc at C4-C5 level Osteoarthritis of spine with radiculopathy, lumbar region Fibromyalgia Esophageal dysphagia Vitamin D deficiency Systemic lupus erythematosus Seropositive rheumatoid arthritis Rheumatoid arthritis involving multiple sites Gallstones Stress incontinence in female Nocturia Urgency-frequency syndrome De Quervain's disease (tenosynovitis) Depressive disorder Acute arthritis Hodgkin disease Surgical History History of surgical removal of skin lesion (~07/13/23) History of angioplasty of vein History of biopsy H/O tubal ligation Hx of endoscopy Hx laparoscopic cholecystectomy Hx of colonoscopy History of esophagogastroduodenoscopy (EGD) History of repair of inguinal hernia History of lymph node dissection of left axilla Family History Family History Maternal Grandmother Ovarian cancer Social History Social History Household Members: Spouse Housing: Apartment Are you a primary managed care nurse to a significant other at home: No 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) Alcohol intake: never Comment: lozenge given 0845 Patient Tobacco Use Status: Current everyday Tobacco user Tobacco use type: Cigarette Cigarette Packs Per Day: 1 Substance Use Type: Marijuana Advance Directives: No Advance Directives Information Provided: Yes Advance Directives Date on File: 09/23/20 service: No Current occupational status: disabled 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 Oriented X3.? No acute distress.? Head: Normocephalic, atraumatic, no step-offs or deformities Eyes: Pupils equal, round and reactive to light.? Neck: Normal inspection.? Neck supple.? CVS: Normal heart rate and rhythm.? Pulses normal.? Respiratory: No respiratory distress.? Breath sounds normal.? Abdomen: Soft and nontender.? Skin: Skin warm and dry.? Normal skin color.? Normal skin turgor.? Extremities: No lower extremity edema.? No calf ttp. 5/5 strength to bilateral upper and lower extremities. Full rom to b/l UE hands/ wrist slight disocmfort to r hand/ wrist rom, no overlying skin changes b/l, no swelling b/l. normal sensation distally b/l. Normal cap refill to b/l UE digits & no wrist drop b/l. 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 Normal ROM of to L hip 2+ popliteal pulses, dp, at, pt pulsese qual and b/l and patient ambulatory. Back: No midline tenderness, no C-spine tenderness, full range of motion, no CVA tenderness bilaterally. Neuro: Oriented X 3.? No motor deficit.? No sensory deficit. CN 2-12 intact . Patient ambulating w/ steady gait Course Reevaluation(s) Reevaluation #1: CBC appears to be at baseline with a normocytic anemia. ESR chronically elevated and better than usual. Chemistry no acute findings requiring intervention. CRP elevated at baseline today much better than usual. Troponin negative, EKG nonischemic. Patient no longer having chest pain or shortness breath. Feels better. Patient will get a wrist splint, be discharged home with Tylenol and prednisone. Advised to return with new or worsening symptoms. I do not suspect PE on her, she looks well, vital signs are stable, saturating well on room air appears to be in no acute distress. Reevaluation #2: Patient left prior to repeat trop Time: 14:45 Medications Administered Discontinued Medications Generic Name Dose Route Start Last Admin Trade Name Freq PRN Reason Stop Dose Admin Acetaminophen 975 mg 12/02/23 10:53 12/02/23 10:58 Acetaminophen 325 Mg Tablet PO 12/02/23 10:54 975 mg ONCE ONE Administration Medical Decision Making Medical Decision Making [facility] Narrative: 1100 48-year-old female presents with multiple complaints right wrist pain and left hip pain. Physical exam No lower extremity edema.? No calf ttp. 5/5 strength to bilateral upper and lower extremities. Full rom to b/l UE hands/ wrist slight disocmfort to r hand/ wrist rom, no overlying skin changes b/l, no swelling b/l. normal sensation distally b/l. Normal cap refill to b/l UE digits & no wrist drop b/l. 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 Normal ROM of to L hip 2+ popliteal pulses, dp, at, pt pulsese qual and b/l and patient ambulatory. Hx and pe concerning for RA, chornic inflammatory state, carpal tunnel, bursistis, osteoarthritis. Unlikley septic joint, neurovascular compromise, acute threat to limb, arterial or venous occlusion. Patient is anticoagulated making this unlikely. Chest pain and shortness of breath likely secondary to viral illness/chronic as patient states she gets this sometimes. Unlikely ACS, PE, pneumothorax, acute respiratory distress, dissection. Unlikely metabolic drained Plan labs, imaging. Differential Diagnosis Differential Diagnoses: The differential diagnosis associated with the presentation includes Hx and pe concerning for RA, chornic inflammatory state, carpal tunnel, bursistis, osteoarthritis. Unlikley septic joint, neurovascular compromise, acute threat to limb, arterial or venous occlusion. Patient is anticoagulated making this unlikely. Chest pain and shortness of breath likely secondary to viral illness/chronic as patient states she gets this sometimes. Unlikely ACS, PE, pneumothorax, acute respiratory distress, dissection. Unlikely metabolic drained Admission/Observation Consideration of admission/observation: Escalation of care including admission/observation considered Unlikely Lab Data MDM Lab Attestation statement: I reviewed the patient's lab results. 12/02/23 10:40 12/02/23 10:40 Labs: Lab Results 12/02/23 Range/Units 10:40 WBC 7.4 (4.8-10.8) X10*3/uL RBC 3.65 L (4.20-5.50) X10*6/uL Hgb 11.4 L (12.0-16.0) g/dl Hct 34.5 L (37.0-47.0) % MCV 94.5 (80.0-98.0) fL MCH 31.2 (27.0-33.0) pg MCHC 33.0 (31.0-35.0) g/dl RDW 13.4 (11.0-16.0) % Plt Count 277 (160-400) X10*3/uL MPV 10.0 (9.4-12.3) fL Immature Gran % (Auto) 0.3 (0.0-0.4) % Neut % (Auto) 70.3 (45-73) % Lymph % (Auto) 22.6 (20-40) % Churchill % (Auto) 5.7 (2-11) % Eos % (Auto) 0.8 (0-4) % Baso % (Auto) 0.3 (0-2) % Lymph # (Auto) 1.7 (1.2-4.9) X10*3/uL Churchill # (Auto) 0.4 (0.1-1.2) X10*3/uL Eos # (Auto) 0.1 (0.0-0.4) X10*3/uL Baso # (Auto) 0.0 (0.0-0.2) X10*3/uL Abs Immat Gran (auto) 0.02 (0.00-0.03) X10*3/uL Absolute Neuts (auto) 5.2 (2.0-8.3) x10*3/uL Absolute Nucleated RBC 0.000 (0.0-0.012) X10*3/uL Nucleated RBC % (auto) 0.0 (0.0-0.2) /100WBC ESR 72 H (0-20) MM/HR Sodium 141 (135-145) mmol/L Potassium 3.6 (3.3-5.1) mmol/L Chloride 106 (96-108) mmol/L Carbon Dioxide 24 (22-29) mmol/L Anion Gap 15 (12-20) BUN 14 (9-16) mg/dL Creatinine 0.75 (0.5-1.4) mg/dL Estim Creat Clear Calc 99.9 Estimated GFR > 60 Random Glucose 100 (60-115) mg/dL Calcium 10.3 H (8.4-10.2) mg/dL Magnesium 2.0 (1.6-2.6) mg/dL Total Bilirubin 0.4 (0.0-1.0) mg/dL AST 18 (5-31) U/L ALT 16 (0-31) U/L Alkaline Phosphatase 61 (39-117) U/L Troponin I High Sens 2.7 (<3.5-17.0) ng/L C-Reactive Protein 0.83 H (< or = 0.50) mg/dL Total Protein 8.5 H (6.5-8.0) g/dL Albumin 4.1 (3.5-5.0) g/dL Independent Interpretation I performed an independent interpretation of an: EKG (Normal sinus rhythm Incomplete right bundle branch block Left anterior fascicular block Moderate voltage criteria for LVH, may be normal variant ( R in aVL , Shelton product ) Abnormal ECG When compared with ECG of 21-SEP-2023 11:31, Incomplete right bundle branch block is now Present Criteria for S) and Plain X-Ray (XR/XR chest 1V IMPRESSION: No acute cardiopulmonary findings.) Radiology Impression Discussion of test interpretation with radiology: I have reviewed the radiologist's reading. Discharge Plan Discharge Clinical Impression: Acute pain of right wrist, Acute pain of left hip, Chest pain, Shortness of breath, Carpal tunnel syndrome, Eloped from emergency department Patient Disposition: Elopement Instructions: Chest Pain (ED), Chest Pain (DC), Arthralgia (ED), Hip Pain (ED), Shortness of Breath (ED) Additional Instructions: Take your medications as prescribed. If you were prescribed antibiotics today, it is important that you take your medication to their entirety, do not skip any doses, do not finish them early. Follow-up with your primary care provider this week. Return to the emergency department with new or worsening symptoms. Such as fevers, chills, chest pain, shortness of breath, nausea, vomiting, dizziness, headache, vision changes, lethargy In case of emergency call 911 Follow up wit cardiology and ortho Please wear a wrist splint as instructed at night Prescriptions: New acetaminophen [Tylenol] 325 mg capsule 325 mg PO Q4H PRN (Reason: pain) Qty: 30 0RF prednisone 20 mg tablet 40 mg PO DAILY 5 Days Qty: 10 0RF No Action Incruse Ellipta 62.5 mcg/actuation blister with device 1 inh PO DAILY Qty: 30 6RF vitamin A palmitate 3,000 mcg (10,000 unit) tablet 10,000 unit PO DAILY Qty: 90 1RF ascorbic acid (vitamin C) [Vitamin C] 500 mg tablet 1,000 mg PO QAM Qty: 180 2RF prednisone 2.5 mg tablet 2.5 mg PO DAILY Qty: 90 0RF Olumiant 2 mg tablet 2 mg PO DAILY Qty: 30 2RF methotrexate sodium 2.5 mg tablet 20 mg PO QWEEK Qty: 96 1RF vitamin A 3,000 mcg (10,000 unit) capsule 1 cap PO QAM Qty: 90 1RF gabapentin 400 mg capsule 400 mg PO TID ferrous sulfate [FeroSul] 325 mg (65 mg iron) tablet 1 tab PO QAM albuterol sulfate [ProAir HFA] 90 mcg/actuation HFA aerosol inhaler 2 puff PO Q4-6H PRN (Reason: Wheezing) lidocaine 5 % adhesive patch,medicated 1 patch topical DAILY Qty: 15 0RF Rx Instructions: leave on most painful area for up to 12 hrs lidocaine [Lidoderm] 5 % adhesive patch,medicated 1 patch topical DAILY Qty: 15 0RF Rx Instructions: leave on most painful area for up to 12 hrs lidocaine [Lidoderm] 5 % adhesive patch,medicated 1 patch topical DAILY PRN (Reason: Pain) Rx Instructions: leave on most painful area for up to 12 hrs nicotine 21 mg/24 hr Patch 24 Hour 21 mg transdermal DAILY Qty: 30 0RF docusate sodium 100 mg capsule 100 mg PO BEDTIME PRN (Reason: Constipation) alprazolam 1 mg tablet 1 mg PO BEDTIME PRN (Reason: Anxiety) Eliquis 5 mg tablet 5 mg PO BID acetaminophen 500 mg tablet 500 - 1,000 mg PO Q8-10H PRN (Reason: pain) Qty: 100 4RF ibuprofen 600 mg tablet 600 mg PO Q8H PRN (Reason: mild pain) bupropion HCl 150 mg tablet sustained-release 12 hr PO fluticasone propionate 50 mcg/actuation spray,suspension 2 spray intranasal QAM cilostazol 100 mg tablet 100 mg PO BID Qty: 180 1RF sertraline [Zoloft] 50 mg tablet 75 mg PO DAILY trazodone 150 mg tablet 150 mg PO BEDTIME PRN vitamin A 3,000 mcg (10,000 unit) capsule 1 cap PO QAM chlorhexidine gluconate 0.12 % mouthwash 15 ml PO DAILY PRN acetaminophen 650 mg tablet extended release 650 mg PO Q8H PRN (Reason: pain) amoxicillin 500 mg capsule 500 mg PO Q8H pantoprazole 40 mg tablet,delayed release (DR/EC) 40 mg PO DAILY Qty: 90 1RF ursodiol 500 mg tablet 500 mg PO BID Qty: 90 2RF benztropine 0.5 mg tablet 0.5 mg PO QAM oxycodone-acetaminophen 5-325 mg tablet 1 tab PO Q8H PRN (Reason: severe pain) famotidine 20 mg tablet 20 mg PO BID risperidone 1 mg tablet PO folic acid 1 mg tablet 1 mg PO QAM Qty: 90 1RF Referrals: [facility] [place] Cardiovascular Services [Provider Group] - 3 days [facility] Orthopedic Surgeons [Provider Group] - 3 days Mackenzie Estrada MD [Primary Care Provider] - 2 days Stand Alone Forms: Work/School Release Print Language: Kyrgyz
--- NOTE | 2023-12-02 10:16 | ECG_ITS ---
Test Reason : cp Blood Pressure : / mmHG Vent. Rate : 064 BPM Atrial Rate : 064 BPM P-R Int : 166 ms QRS Dur : 098 ms QT Int : 418 ms P-R-T Axes : 055 -54 036 degrees QTc Int : 431 ms Normal sinus rhythm Incomplete right bundle branch block Left anterior fascicular block Moderate voltage criteria for LVH, may be normal variant ( R in aVL , Lismore product ) Abnormal ECG When compared with ECG of 21-SEP-2023 11:31, Incomplete right bundle branch block is now Present Criteria for Septal infarct are no longer Present Referred By: Margo Pak Electronically Signed By:KENN STEVENSON
[2023-12-02 10:49] LABS: MANUAL DIFF FLAG NO
[2023-12-02 10:50] LABS: Basophils Percent Auto 0.3 % (0-2); Eosinophils Absolute Auto 0.1 X10*3/uL (0.0-0.4); Eosinophils Percent Auto 0.8 % (0-4); Hematocrit 34.5 % (37.0-47.0); Hemoglobin 11.4 g/dl (12.0-16.0); Imm Gran Abs Auto 0.02 X10*3/uL (0.00-0.03); Imm Gran Pct Auto 0.3 % (0.0-0.4); Lymphocytes Absolute Auto 1.7 X10*3/uL (1.2-4.9); Lymphocytes Percent Auto 22.6 % (20-40); Mean Corpuscular Hemoglobin 31.2 pg (27.0-33.0); Mean Corpuscular Volume 94.5 fL (80.0-98.0); Monocytes Absolute Auto 0.4 X10*3/uL (0.1-1.2); Monocytes Percent Auto 5.7 % (2-11); Neutrophils Absolute Auto 5.2 x10*3/uL (2.0-8.3); Neutrophils Percent Auto 70.3 % (45-73); Platelet Count 277 X10*3/uL (160-400); Red Blood Count 3.65 X10*6/uL (4.20-5.50); Red Cell Distribution Width 13.4 % (11.0-16.0); White Blood Count 7.4 X10*3/uL (4.8-10.8)
[2023-12-02] MEDS: Acetaminophen 325 MG TABLET 975 MG PO (10:58)
[2023-12-02 11:09] LABS: Alanine Aminotransferase 16 U/L (0-31); Albumin Level 4.1 g/dL (3.5-5.0); Alkaline Phosphatase 61 U/L (39-117); Anion Gap 15 (12-20); Aspartate Amino Transferase 18 U/L (5-31); Bilirubin Total 0.4 mg/dL (0.0-1.0); Blood Urea Nitrogen 14 mg/dL (9-16); C Reactive Protein 0.83 mg/dL (< or = 0.50); Calcium 10.3 mg/dL (8.4-10.2); Carbon Dioxide 24 mmol/L (22-29); Chloride 106 mmol/L (96-108); Creatinine Clr Calc Pharmacy 99.9; Estimated Glomerular Filt Rate > 60; Glucose Random 100 mg/dL (60-115); Potassium 3.6 mmol/L (3.3-5.1); Sodium 141 mmol/L (135-145); Total Protein 8.5 g/dL (6.5-8.0)
[2023-12-02 11:16] LABS: Troponin-I High Sensitivity 2.7 ng/L (<3.5-17.0)
[2023-12-02 11:39] LABS: Erythrocyte Sedimentation Rate 72 MM/HR (0-20)
--- NOTE | 2023-12-02 14:51 | PC.NURSE ---
Patient left before blood draw.
--- NOTE | 2023-12-02 15:26 | PC.NURSE ---
pt eloped from ER prior to ab draw. Ayla lyles
== END 2023-12-02 14:50 | disposition left against medical advice (07) ==
PROVIDERS: Physician Assistant; Emergency Provider Emergency Medicine; PCP General Practice
DX: M25.531 Pain in right wrist (principal); M25.552 Pain in left hip; R07.9 Chest pain, unspecified; R06.02 Shortness of breath; G56.00 Carpal tunnel syndrome, unspecified upper limb; M05.9 Rheumatoid arthritis with rheumatoid factor, unspecified; Z86.718 Personal history of other venous thrombosis and embolism
CPT/HCPCS: 36415; 71045; 80053; 83735; 84484; 85025; 85652; 86140; 93005; 99283

== ENCOUNTER → 2023-12-02 10:16 | Outpatient (BNV) | payer MEDICAID, SELFPAY | PROVIDERS: Emergency Provider Emergency Medicine; PCP General Practice; Visit Provider Internal Medicine | DX: I44.4 Left anterior fascicular block (principal) | CPT/HCPCS: 93010 ==

== ENCOUNTER 2023-12-14 11:02 | Outpatient (AMB) | payer MEDICAID, SELFPAY ==
[2023-12-14 11:31] VITALS: BP 128/74; PULSE 71; O2SAT 98; BMI 32.6
--- NOTE | 2023-12-14 11:31 | MHC.OFFVIS ---
Vital Signs 12/14/23 11:31 Height 5 ft 6 in Weight 202 lb 2.622 oz BMI 32.6 BP 128/74 Blood Pressure Location Rt brachial Position Sitting Pulse 71 Pulse Source Pulse Oximeter Pulse Oximetry (%) 98 Oxygen Delivery Method Room Air Intake Visit Reasons: RA Intake Note: Patient last seen 10/04/23 presents today for follow up and test results. Supervisor Nuclear Medicine Required: Yes Supervisor Nuclear Medicine Language: General Operations Manager Name: sarah Hammer [id number] Accompanied by: Self / Same As Patient Allergies almond [ALMONDS] Allergy (Severe, Verified 12/14/23 11:39) ANAPHYLAXIS adhesive tape [ADHESIVE TAPE] Allergy (Intermediate, Verified 12/14/23 11:39) RASH morphine [MORPHINE] Allergy (Intermediate, Verified 12/14/23 11:39) GI UPSET, difficulty breathing tramadol [TRAMADOL] Adverse Reaction (Unknown, Verified 12/14/23 11:39) NAUSEA & VOMITING Medication List - Last Reconciled 12/14/23 by Simon Elkins MD acetaminophen (Tylenol) 325 mg PO Q4H PRN acetaminophen 500 - 1,000 mg (1 - 2 x 500 mg) PO Q8-10H PRN acetaminophen ER 650 mg PO Q8H PRN albuterol sulfate 90 mcg/actuation (ProAir HFA) 2 puffs PO Q4-6H PRN alprazolam 1 mg PO BEDTIME PRN amoxicillin 500 mg PO Q8H apixaban (Eliquis) 5 mg PO BID ascorbic acid (vitamin C) (Vitamin C) 1,000 mg (2 x 500 mg) PO QAM baricitinib (Olumiant) 2 mg PO DAILY benztropine 0.5 mg PO QAM bupropion HCl SR mg PO chlorhexidine gluconate 0.12% 15 mL PO DAILY PRN cilostazol 100 mg PO BID docusate sodium 100 mg PO BEDTIME PRN famotidine 20 mg PO BID ferrous sulfate (FeroSul) 1 tab PO QAM fluticasone propionate 50 mcg/actuation 2 sprays intranasal QAM folic acid 1 mg PO QAM gabapentin 400 mg PO TID ibuprofen 600 mg PO Q8H PRN lidocaine 5% 1 patch topical DAILY methotrexate sodium 20 mg (8 x 2.5 mg) PO QWEEK oxycodone-acetaminophen 10-325 mg 1 tab PO Q8H PRN pantoprazole 40 mg PO DAILY prednisone 2.5 mg PO DAILY risperidone mg PO sertraline (Zoloft) 75 mg PO DAILY trazodone 150 mg PO BEDTIME PRN umeclidinium 62.5 mcg/actuation (Incruse Ellipta) 1 inh PO DAILY ursodiol 500 mg PO BID vitamin A 1 cap PO QAM HPI Comments Details: 48-year-old female with seropositive nodular RA returns for follow-up. She is on Olumiant daily, methotrexate 20 mg weekly split dose folic acid 1 mg daily and prednisone 2.5 mg daily. Patient went to the ER last month due to abrupt onset of left hip pain. She had x-rays which were unremarkable and discharged. Then a pelvis MRI was ordered by her PCP which showed osteonecrosis of left femoral head. She states that her arthritis is doing fairly well but continues to have intermittent pain in her hands, right ankle pain and intermittent alternating hip pain most recent hx by Dr. Ram 07/2023:The patient with RA returns today with complaints of pain in the right wrist. Her son accompanies her today and translates for us. She had called us earlier in the week with a flare-up of symptoms in the elbow, wrist and shoulder on the right. At her last visit a month ago I had prescribed baricitinib but for some reason she has yet to receive it. She tells me now the delivery is for tomorrow or the next day. She remains on ibuprofen 800 b.i.d., acetaminophen 1 or 2 b.i.d., methotrexate 20 mg weekly, folic acid 1 mg daily, gabapentin 400 mg t.i.d. and Percocet prescribed by her primary doctor t.i.d. When she had called earlier this week we had her increase her prednisone up to 10 b.i.d. from 5 mg b.i.d. The other joints that hurt her today include the right hand, both knees - left greater than right, and right ankle.She has an orth0 visit latrer today to discuss the left knee. [facility] Medical History PAD (peripheral artery disease) Skin lesion Knee pain, left Seropositive rheumatoid arthritis Anxiety Achilles tendinitis Superficial femoral artery occlusion Depression Hx of peripheral pulmonary artery stenosis History of chemotherapy Cancer of heart Bone cancer Lung cancer Bleeding hemorrhoid Degeneration, intervertebral disc, lumbar Chronic GERD Degeneration of intervertebral disc at C4-C5 level Osteoarthritis of spine with radiculopathy, lumbar region Fibromyalgia Esophageal dysphagia Vitamin D deficiency Systemic lupus erythematosus Seropositive rheumatoid arthritis Rheumatoid arthritis involving multiple sites Gallstones Stress incontinence in female Nocturia Urgency-frequency syndrome De Quervain's disease (tenosynovitis) Depressive disorder Acute arthritis Hodgkin disease Surgical History History of surgical removal of skin lesion (~07/13/23) History of angioplasty of vein History of biopsy H/O tubal ligation Hx of endoscopy Hx laparoscopic cholecystectomy Hx of colonoscopy History of esophagogastroduodenoscopy (EGD) History of repair of inguinal hernia History of lymph node dissection of left axilla Family History Maternal Grandmother Ovarian cancer Social History Household Members: Spouse Housing: Apartment Are you a primary care specialist to a significant other at home: No Do 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 have 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) Alcohol intake: never Comment: lozenge given [id number] Patient Tobacco Use Status: Current everyday Tobacco user Tobacco use type: Cigarette Cigarette Packs Per Day: 1 Substance Use Type: Marijuana Advance Directives Date on File: 09/23/20 service: No Current occupational status: disabled 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 of Systems Musc Reports arthralgias, Reports joint swelling, Reports limited range of motion and Reports stiffness Physical Exam Vital Signs: Last Vital Signs Pulse 71 12/14/23 11:31 BP 128/74 12/14/23 11:31 Pulse Ox 98 12/14/23 11:31 Oxygen Delivery Method Room Air 12/14/23 11:31 BMI result Body Mass Index 32.6 Const General: cooperative, healthy appearing and comfortable Nutritional Appearance: obese morbidly obese Orientation/consciousness: patient oriented x3 Limitations: no limitations HEENT Head: Yes normocephalic and Yes atraumatic Resp Effort & Inspection: normal respiratory effort and able to speak in complete sentences Skin Other: Nodules on elbows Neuro General: patient oriented x3 Extrem Other: No active synovitis right hand, wrist & elbow No left wrist tenderness but pain with flexion and extension Right ankle swelling and tenderness Pain with any range of motion of right hip Results Reviewed Results Reviewed: 10/2023 MR/MR pelvis wo/w con IMPRESSION: * Normal uterus and ovaries. No evidence of uterine adenomyosis or endometriosis. * Small fat-containing left inguinal hernia. * There is stage 2 osteonecrosis of the anterosuperior left femoral head. * Mild edema-like signal change within the distal left iliopsoas is consistent with mild muscle strain. Assessment & Plan Assessment & Plan (1) Seropositive rheumatoid arthritis: Comment: RF++CCP++ regularly requiring prednisone. methotrexate and hydroxychloroquine ?2019 Xeljanz 05/2020-08/2020(ineffective) 2020 methotrexate and Humira(HCQ stopped - ?vision changes). 06/2022 Humira stopped due to poor repsonse 06/2022 methotrexate and Actemra 12/2022: Actemra stopped by the patient. She had some leg swelling as well. 03/10/2023 and 03/24/23: 1 g on each day rituximab administered Olumiant 08/2023 effective LT avascular necrosis. Prednisone discontinued Code(s): M05.9 - Rheumatoid arthritis with rheumatoid factor, unspecified Category: Medical Plan: This is a 48-year-old female with seropositive nodular RA who presents for follow-up. She is on prednisone 2.5 mg daily, methotrexate 20 mg weekly, Olumiant 2 mg daily, folic acid 1 mg daily. Overall patient's RA has been better controlled since Olumiant was started 08/2023. Left wrist steroids injection done last visit was quite helpful. There is no wrist swelling today. But she continues to have right ankle synovitis Over the last month patient has been having alternating hip pain. Pelvis MRI showed left femur osteonecrosis. Will DC prednisone. Try to avoid steroids as much as possible. Referred patient to orthopedics Increase methotrexate to 25 mg weekly split dose Continue meds otherwise as prescribed There is some mildly increased risk of thromboembolic events with autoimmune especially given patient's history of thrombosis. Patient however is on Eliquis regularly. Dr. Ram explained this risk before with patient. I agree with Dr. Ram that the risk of DVT is substantially lowered when on Eliquis. In any case, patient has failed or could not tolerate multiple DMARDs for her RA and she continues to have synovitis. She has required large doses of prednisone. 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 Advised patient to call the clinic if she develops any signs of fever or infection (4) Systemic lupus erythematosus: Comment: January 2022: ++DsDNA positive. Rheumatoid factor and CCP antibody markedly positive. This looks more like picture of seropositive RA. Code(s): M32.9 - Systemic lupus erythematosus, unspecified Category: Medical Qualifiers: Systemic lupus erythematosus type: unspecified Systemic lupus erythematosus organ involvement: unspecified Qualified Code(s): M32.9 - Systemic lupus erythematosus, unspecified Plan: I do not see any features of active SLE. She has a positive dsDNA with no specific features of lupus. Will continue to monitor patient for development of features of active SLE. Plan I spent 47 minutes reviewing patient's chart, evaluating patient, ordering diagnostic workup, counseling patient and documenting in the chart Orders: Referrals Orthopedics Referral M87.159 - Osteonecrosis due to drugs, unspecified femur Medications: Changed From methotrexate sodium 20 mg (8 x 2.5 mg) PO QWEEK 96 tabs 1RF To methotrexate sodium 25 mg (10 x 2.5 mg) PO QWEEK 120 tabs 0RF Discontinued prednisone Discontinued Reason: Doctor's Order 2.5 mg PO DAILY 90 tabs 0RF M05.9 - Rheumatoid arthritis with rheumatoid factor, unspecified Coding Level of Care Code Est Pt Level 5 (49833) Diagnoses Seropositive rheumatoid arthritis M05.9 watermaster 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
== END 2023-12-14 12:14 | disposition home or self-care (01) ==
LOC: HO.RHE 11:02
PROVIDERS: PCP General Practice; Visit Provider Student in an Organized Health Care Education/Training Program
DX: M05.79 Rheumatoid arthritis with rheumatoid factor of multiple sites without organ or systems involvement (principal); Z79.899 Other long term (current) drug therapy; M32.9 Systemic lupus erythematosus, unspecified
CPT/HCPCS: 99215

== ENCOUNTER → 2023-12-14 11:02 | Outpatient (BNVA) | payer MEDICAID, SELFPAY | PROVIDERS: PCP General Practice; Visit Provider Student in an Organized Health Care Education/Training Program | DX: M05.9 Rheumatoid arthritis with rheumatoid factor, unspecified (principal); M32.9 Systemic lupus erythematosus, unspecified; Z79.899 Other long term (current) drug therapy | CPT/HCPCS: 99212 ==

== ENCOUNTER → 2023-12-27 15:39 | Outpatient (RCR) | payer OTHER, MEDICAID, SELFPAY ==
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
== END | disposition home or self-care (01) ==
LOC: HO.OT 03-18 12:55
PROVIDERS: PCP General Practice; Visit Provider Physician Assistant
DX: S50.01XA Contusion of right elbow, initial encounter (principal)
CPT/HCPCS: 97110; 97166

== ENCOUNTER 2024-01-01 09:26 | Outpatient (REF) | payer MEDICAID, SELFPAY ==
--- NOTE | ~2024-01-01 | MR_ITS ---
EXAMINATION: MR BRAIN WITHOUT CONTRAST CLINICAL INFORMATION: 48-year-old female, vertigo, suspected central etiology; dizziness, blurry vision, headaches, left arm weakness. COMPARISON: Correlation made with CT head 03/26/2023. MRI brain without contrast 12/12/2018. TECHNIQUE: MRI of the brain was obtained using routine sequences without contrast. Standard sequences were utilized. FINDINGS: There is no diffusion restriction. There is no intracranial hemorrhage, acute infarction, mass effect, or edema. Ventricles, sulci, and cisterns are normal in size and configuration for patient age. No shift of midline. No abnormal hemosiderin deposition is identified. There are a few rare punctate foci of white matter T2 hyperintensity in the supratentorial periventricular, subcortical, and hemispheric deep white matter, nonspecific. Midline structures appear normally formed. Partial empty sella present. Cerebellar tonsils are appropriately located. Major flow voids are preserved within the skull base. The globes and orbital contents demonstrate no abnormalities. Mild hypertelorism noted. Minimal mucosal thickening present in the anterior ethmoid sinuses. Paranasal sinuses otherwise clear. There is rightward deviation of the posterior nasal septum with a tiny spur. Trace fluid signal in the left mastoid tip. Mastoids and middle ear cavities otherwise normal. Extracranial soft tissues demonstrate no abnormalities. No suspicious bone marrow changes are evident. Atlantoaxial joint is normal. MR/MR head/brain wo con IMPRESSION: 1. No evidence of intracranial hemorrhage, acute infarction, mass effect, or edema. 2. A few nonspecific white matter T2 hyperintense punctate foci, most likely on the basis of small vessel ischemic changes. 3. Partial empty sella. 4. Minimal anterior sinus ethmoid mucosal thickening.
== END 2024-01-01 09:27 | disposition home or self-care (01) ==
LOC: HO.MRI 09:26
PROVIDERS: PCP General Practice; Visit Provider General Practice
DX: R42 Dizziness and giddiness (principal)
CPT/HCPCS: 70551

== ENCOUNTER → 2024-01-01 09:27 | Outpatient (BNV) | payer MEDICAID, SELFPAY | PROVIDERS: PCP General Practice; Visit Provider Radiology Diagnostic Radiology | DX: R42 Dizziness and giddiness (principal); R51.9 Headache, unspecified | CPT/HCPCS: 70551 ==

== ENCOUNTER 2024-01-09 10:11 | Outpatient (REF) | payer MEDICAID, SELFPAY ==
--- NOTE | ~2024-01-09 | XR_ITS ---
EXAMINATION: XR PELVIS CLINICAL INFORMATION: Pain. COMPARISON: Pelvic MRI 11/25/2023. Radiograph left hip 10/26/2023. TECHNIQUE: AP view of the pelvis. FINDINGS: No acute fracture or malalignment. Osteonecrosis in the left femoral head is best visualized on prior MRI. No significant degenerative changes. SI joints are symmetric. Pubic symphysis and pelvic rim are maintained. Radiopaque body, possibly surgical clip, overlies the left superior iliac crest. No significant soft tissue abnormality. XR/XR pelvis 1-2V IMPRESSION: 1. No acute fracture or malalignment. 2. Osteonecrosis in the left femoral head is best visualized on prior MRI.
== END 2024-01-09 10:12 | disposition home or self-care (01) ==
LOC: HO.HOSX 10:11
PROVIDERS: Visit Provider Orthopaedic Surgery
DX: M87.052 Idiopathic aseptic necrosis of left femur (principal)
CPT/HCPCS: 72170; 99212

== ENCOUNTER 2024-01-09 10:51 | Outpatient (AMB) | payer MEDICAID, SELFPAY ==
[2024-01-09 11:00] VITALS: BMI 32.6
--- NOTE | 2024-01-09 11:00 | A.OFFVIS_ITS ---
Vital Signs 01/09/24 11:00 Height 5 ft 6 in Weight 202 lb BMI 32.6 Intake Visit Reasons: N/Problem osteonecrosis left femoral Intake Note: Ginette is a 48 year old female who presents today for a new problem visit with complaints of left hip & knee pain, she was referred by Rheumatology for osteonecrosis due to prolonged steroid use causing osteonecrosis. RF++CCP++ regularly requiring prednisone. Allergies almond [ALMONDS] Allergy (Severe, Verified 12/14/23 11:39) ANAPHYLAXIS adhesive tape [ADHESIVE TAPE] Allergy (Intermediate, Verified 12/14/23 11:39) RASH morphine [MORPHINE] Allergy (Intermediate, Verified 12/14/23 11:39) GI UPSET, difficulty breathing tramadol [TRAMADOL] Adverse Reaction (Unknown, Verified 12/14/23 11:39) NAUSEA & VOMITING HPI HPI N/Problem osteonecrosis left femoral: Details: Ginette is a 48 year old female who presents today for a new problem visit with complaints of left hip & knee pain, she was referred by Rheumatology for osteonecrosis due to prolonged steroid use causing osteonecrosis. RF++CCP++ regularly requiring prednisone. She has bilateral lateral hip pain and occasional left groin pain. SHe had an MRI which showed left hip AVN. [facility] Medical History PAD (peripheral artery disease) Skin lesion Knee pain, left Seropositive rheumatoid arthritis Anxiety Achilles tendinitis Superficial femoral artery occlusion Depression Hx of peripheral pulmonary artery stenosis History of chemotherapy Cancer of heart Bone cancer Lung cancer Bleeding hemorrhoid Degeneration, intervertebral disc, lumbar Chronic GERD Degeneration of intervertebral disc at C4-C5 level Osteoarthritis of spine with radiculopathy, lumbar region Fibromyalgia Esophageal dysphagia Vitamin D deficiency Systemic lupus erythematosus Seropositive rheumatoid arthritis Rheumatoid arthritis involving multiple sites Gallstones Stress incontinence in female Nocturia Urgency-frequency syndrome De Quervain's disease (tenosynovitis) Depressive disorder Acute arthritis Hodgkin disease Surgical History History of surgical removal of skin lesion (~07/13/23) History of angioplasty of vein History of biopsy H/O tubal ligation Hx of endoscopy Hx laparoscopic cholecystectomy Hx of colonoscopy History of esophagogastroduodenoscopy (EGD) History of repair of inguinal hernia History of lymph node dissection of left axilla Family History Maternal Grandmother Ovarian cancer Social History Household Members: Spouse Housing: Apartment Are you a primary adult care manager to a significant other at home: No Do 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 have 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 Mildly + left impigement test nl gait ttp bilateral greater trochanters. Results Reviewed Results Reviewed: I personally reviewed the MR images. There is stage 2 osteonecrosis of the anterosuperior left femoral head. I personally reviewed relevant radiographs. Minimal collapse left him Assessment & Plan Assessment & Plan (1) Avascular necrosis of left femoral head: Code(s): M87.052 - Idiopathic aseptic necrosis of left femur Category: Medical Plan: Minimal collapse and symptoms are mild. No surgical treatment recommended at this time. I do recommend that she stay active. I explained this condition to her and the possibility of progression. She will return to see me in 3 months. Orders: Orders XR pelvis 1-2V Today M25.559 - Pain in unspecified hip Coding Level of Care Code Est Pt Level 4 (93152) Diagnoses Avascular necrosis of left femoral head M87.052
== END 2024-01-09 11:31 | disposition home or self-care (01) ==
PROVIDERS: PCP General Practice; Referring Provider General Practice; Visit Provider Orthopaedic Surgery
DX: M87.052 Idiopathic aseptic necrosis of left femur (principal)
CPT/HCPCS: 99213

== ENCOUNTER 2024-01-24 09:19 | Outpatient (AMB) | payer MEDICAID, SELFPAY ==
[2024-01-24 09:29] VITALS: BP 140/72; PULSE 54; BMI 32.0
--- NOTE | 2024-01-24 09:29 | MHC.OFFVIS ---
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 Allergies almond [ALMONDS] Allergy (Severe, Verified 01/24/24 10:45) ANAPHYLAXIS adhesive tape [ADHESIVE TAPE] Allergy (Intermediate, Verified 01/24/24 10:45) RASH morphine [MORPHINE] Allergy (Intermediate, Verified 01/24/24 10:45) GI UPSET, difficulty breathing tramadol [TRAMADOL] Adverse Reaction (Unknown, Verified 01/24/24 10:45) NAUSEA & VOMITING Medication List - Last Reconciled 01/24/24 by GENNA Espinoza acetaminophen (Tylenol) 325 mg PO Q4H PRN acetaminophen 500 - 1,000 mg (1 - 2 x 500 mg) PO Q8-10H PRN acetaminophen ER 650 mg PO Q8H PRN albuterol sulfate 90 mcg/actuation (ProAir HFA) 2 puffs PO Q4-6H PRN alprazolam 1 mg PO BEDTIME PRN amoxicillin 500 mg PO Q8H apixaban (Eliquis) 5 mg PO BID ascorbic acid (vitamin C) (Vitamin C) 1,000 mg (2 x 500 mg) PO QAM baricitinib (Olumiant) 2 mg PO DAILY bupropion HCl SR mg PO chlorhexidine gluconate 0.12% 15 mL PO DAILY PRN ferrous sulfate (FeroSul) 1 tab PO QAM fluticasone propionate 50 mcg/actuation 2 sprays intranasal QAM folic acid 1 mg PO QAM lidocaine 5% 1 patch topical DAILY methotrexate sodium 25 mg (10 x 2.5 mg) PO QWEEK oxycodone-acetaminophen 10-325 mg 1 tab PO Q8H PRN pantoprazole 40 mg PO DAILY trazodone 150 mg PO BEDTIME PRN vitamin A 1 cap PO QAM HPI HPI [facility] [place]: Details: Ginette is a 48-year-old female with past medical history of fibromyalgia, rheumatoid arthritis, SLE, non-Hodgkin's lymphoma 2004, smoking, PAD, DVT and on Eliquis, who was recently seen in the emergency room for chest discomfort. She ruled out for ACS. Her EKG did show incomplete right bundle branch block and left anterior fascicular block. She was referred to Cardiology in follow-up. Today she presents for cardiology consultation. She tells me she has pain in her left upper chest near the scapula that comes down and across her chest. The area near the scapula is visibly swollen and tender to palpation. She denies any injury but instead relates this to her rheumatoid arthritis. She describes having joint pains all over her body. She does have other types of discomfort in the chest area at times and is concern that this may be her heart. She denies shortness of breath at rest or with activity. She is mostly sedentary and ambulates with a cane or a walker depending on where she is. No PND, orthopnea or ankle edema. No lightheadedness, presyncope, syncope, recent falls. She takes her meds as directed. Her father had heart disease and in his 40s but she is unsure of the details. She believes her brother has heart problems but again does not know the details. She smokes 3 cigarettes a day which is a reduction down from 1 pack per day. She does not drink any alcohol or use illicit substances. She has never been diagnosed with any heart problems. [facility]LY [facility] Medical History (Updated 01/24/24 @ 11:07 by Segundo Drew MD) Skin lesion Anxiety Achilles tendinitis Superficial femoral artery occlusion Knee pain, left Depression Hx of peripheral pulmonary artery stenosis PAD (peripheral artery disease) History of chemotherapy Cancer of heart Bone cancer Lung cancer Seropositive rheumatoid arthritis Bleeding hemorrhoid Degeneration, intervertebral disc, lumbar Chronic GERD Degeneration of intervertebral disc at C4-C5 level Osteoarthritis of spine with radiculopathy, lumbar region Fibromyalgia Esophageal dysphagia Vitamin D deficiency Systemic lupus erythematosus Seropositive rheumatoid arthritis Rheumatoid arthritis involving multiple sites Gallstones Stress incontinence in female Nocturia Urgency-frequency syndrome De Quervain's disease (tenosynovitis) Depressive disorder Acute arthritis Hodgkin disease Surgical History History of surgical removal of skin lesion (~07/13/23) History of angioplasty of vein History of biopsy H/O tubal ligation Hx of endoscopy Hx laparoscopic cholecystectomy Hx of colonoscopy History of esophagogastroduodenoscopy (EGD) History of repair of inguinal hernia History of lymph node dissection of left axilla Family History Maternal Grandmother Ovarian cancer Social History Household Members: Spouse Housing: Apartment Are you a primary critical care transport nurse to a significant other at home: No Do 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 have 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 or other home services: Yes (specialty trimmer) Alcohol intake: never Comment: lozenge given [id number] Patient Tobacco Use Status: Current everyday Tobacco user Tobacco use type: Cigarette Cigarette Packs Per Day: 1 Substance Use Type: Marijuana Advance Directives Date on File: 09/23/20 service: No Current occupational status: disabled 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 ambulates with cane Reports abnormal gait, Reports limited range of motion, Denies muscle weakness, Denies numbness, Denies radiating pain into limb, Reports stiffness and Denies tingling Neuro Reports abnormal gait, Denies dizziness, Denies numbness and Denies tingling Endo Denies palpitations Physical Exam Vital Signs: Last Vital Signs Pulse 54 01/24/24 09:29 BP 140/72 H 01/24/24 09:29 BMI result Body Mass Index 32.0 Const Other: ambulates slow with cane. General: cooperative and no acute distress; No comfortable Orientation/consciousness: patient oriented x3 Neck Neck: Yes normal visual inspection and Yes no JVD Resp Effort & Inspection: normal respiratory effort Auscultation: clear to auscultation bilaterally, no crackles, no rales, no rhonchi and no wheezes Cardio Jugular venous distension: no JVD Rate: regular rate Rhythm: regular rhythm Heart sounds: S1 normal heart sound present, S2 normal heart sound present, no murmurs and no rubs Neuro General: patient oriented x3 Extrem General: Yes normal to inspection Psych Appearance: grossly normal Mental Status: mental status grossly normal Speech and movement: Normal speech and movement present Assessment & Plan Assessment & Plan (1) Chest pain, precordial: Code(s): R07.2 - Precordial pain Category: Medical Plan: Atypical left-sided chest discomfort. Recent ER evaluation ruled out for ACS. Her EKG does show incomplete right bundle branch block and left anterior fascicular block. She has no known history of heart disease. She does have reported heart disease in her family. Cardiac risk factors of rheumatoid arthritis, sedentary, smoking, PAD. Will check a echocardiogram to assess for any structural heart disease. Will check a pharmacological nuclear stress test to evaluate for any ischemia. She will be unable to walk on a treadmill as she has significant joint pains and ambulates with a cane/walker. Signs and symptoms of angina reviewed with her. Cardiology follow-up 4-6 weeks, sooner if needed. (2) Polyarthropathy: Code(s): M13.0 - Polyarthritis, unspecified Category: Medical (3) PAD (peripheral artery disease): Comment: 04/21/2022 - diagnostic angiogram - left common iliac occlusion, right SFA stenosis at [facility] 06/09/2022 - right SFA angioplasty and stent via radial approach Code(s): I73.9 - Peripheral vascular disease, unspecified Category: Medical Plan: Record indicates history of left SFA stenosis with angioplasty and stent. She is mostly sedentary. She has joint pains without clear claudication. She is on aspirin and statin. She follows with Dr. Hughes. (4) Fibromyalgia: Code(s): M79.7 - Fibromyalgia Category: Medical Plan: As above (5) Abnormal EKG: Code(s): R94.31 - Abnormal electrocardiogram [ECG] [EKG] Category: Medical Plan: As above. Checking echo and stress test Plan Time spent on chart review, documentation, interview and assessment Orders: Orders NM cardiolite stress test Today R07.2 - Precordial pain, R94.31 - Abnormal electrocardiogram [ECG] [EKG], Z92.21 - Personal history of antineoplastic chemotherapy CA echo transthoracic complete Today I73.9 - Peripheral vascular disease, unspecified, R07.2 - Precordial pain, Z92.21 - Personal history of antineoplastic chemotherapy CA lexiscan stress w at Today R07.2 - Precordial pain, R94.31 - Abnormal electrocardiogram [ECG] [EKG], Z92.21 - Personal history of antineoplastic chemotherapy Coding Level of Care Code New Pt Level 3 (92001) Diagnoses Chest pain, precordial R07.2 Polyarthropathy M13.0 PAD (peripheral artery disease) I73.9 Fibromyalgia M79.7 Abnormal EKG R94.31 Time Spent (min) 28
== END 2024-01-24 10:59 | disposition home or self-care (01) ==
PROVIDERS: PCP General Practice; Visit Provider Nurse Practitioner Family
DX: R07.2 Precordial pain (principal); M13.0 Polyarthritis, unspecified; I73.9 Peripheral vascular disease, unspecified; M79.7 Fibromyalgia; R94.31 Abnormal electrocardiogram [ECG] [EKG]
CPT/HCPCS: 99203

== ENCOUNTER → 2024-01-24 09:19 | Outpatient (BNVA) | payer MEDICAID, SELFPAY | PROVIDERS: PCP General Practice; Visit Provider Nurse Practitioner Family | DX: M25.561 Pain in right knee (principal); R07.2 Precordial pain; M13.0 Polyarthritis, unspecified; I73.9 Peripheral vascular disease, unspecified; M79.7 Fibromyalgia; R94.31 Abnormal electrocardiogram [ECG] [EKG] | CPT/HCPCS: 99212 ==

== ENCOUNTER 2024-01-24 10:39 | Outpatient (AMB) | payer MEDICAID, SELFPAY ==
--- NOTE | 2024-01-24 10:40 | MHC.OFFVIS ---
Vital Signs 01/24/24 10:46 Height 5 ft 6 in Weight 197 lb 15 oz BMI 31.9 Intake Visit Reasons: New prob right knee pain Intake Note: Ginette is a 48 year old Romansh speaking female who presents today for a new problem with complaints of right knee pain and giving way. The patient states that her bilateral knee pains have gotten worse over the last few years. She has difficulty going up and down stairs. She states that her right knee will give out several times per day. She has tried Tylenol and oxycodone which gave her minimal relief. She has had injections in the past which gave her no relief. Most of the pain is along the medial aspect of her right knee. 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 Heel Washer Stringing Machine Operator Language: Casing Finisher And Stuffer Name: [id number] Allergies almond [ALMONDS] Allergy (Severe, Verified 01/24/24 10:45) ANAPHYLAXIS adhesive tape [ADHESIVE TAPE] Allergy (Intermediate, Verified 01/24/24 10:45) RASH morphine [MORPHINE] Allergy (Intermediate, Verified 01/24/24 10:45) GI UPSET, difficulty breathing tramadol [TRAMADOL] Adverse Reaction (Unknown, Verified 01/24/24 10:45) NAUSEA & VOMITING Medication List - Last Reconciled 01/24/24 by Segundo Drew MD acetaminophen (Tylenol) 325 mg PO Q4H PRN acetaminophen 500 - 1,000 mg (1 - 2 x 500 mg) PO Q8-10H PRN acetaminophen ER 650 mg PO Q8H PRN albuterol sulfate 90 mcg/actuation (ProAir HFA) 2 puffs PO Q4-6H PRN alprazolam 1 mg PO BEDTIME PRN amoxicillin 500 mg PO Q8H apixaban (Eliquis) 5 mg PO BID ascorbic acid (vitamin C) (Vitamin C) 1,000 mg (2 x 500 mg) PO QAM baricitinib (Olumiant) 2 mg PO DAILY bupropion HCl SR mg PO chlorhexidine gluconate 0.12% 15 mL PO DAILY PRN ferrous sulfate (FeroSul) 1 tab PO QAM fluticasone propionate 50 mcg/actuation 2 sprays intranasal QAM folic acid 1 mg PO QAM lidocaine 5% 1 patch topical DAILY methotrexate sodium 25 mg (10 x 2.5 mg) PO QWEEK oxycodone-acetaminophen 10-325 mg 1 tab PO Q8H PRN pantoprazole 40 mg PO DAILY trazodone 150 mg PO BEDTIME PRN vitamin A 1 cap PO QAM PFSH Medical History (Updated 01/24/24 @ 11:07 by Segundo Drew MD) Skin lesion Anxiety Achilles tendinitis Superficial femoral artery occlusion Knee pain, left Depression Hx of peripheral pulmonary artery stenosis PAD (peripheral artery disease) History of chemotherapy Cancer of heart Bone cancer Lung cancer Seropositive rheumatoid arthritis Bleeding hemorrhoid Degeneration, intervertebral disc, lumbar Chronic GERD Degeneration of intervertebral disc at C4-C5 level Osteoarthritis of spine with radiculopathy, lumbar region Fibromyalgia Esophageal dysphagia Vitamin D deficiency Systemic lupus erythematosus Seropositive rheumatoid arthritis Rheumatoid arthritis involving multiple sites Gallstones Stress incontinence in female Nocturia Urgency-frequency syndrome De Quervain's disease (tenosynovitis) Depressive disorder Acute arthritis Hodgkin disease Surgical History History of surgical removal of skin lesion (~07/13/23) History of angioplasty of vein History of biopsy H/O tubal ligation Hx of endoscopy Hx laparoscopic cholecystectomy Hx of colonoscopy History of esophagogastroduodenoscopy (EGD) History of repair of inguinal hernia History of lymph node dissection of left axilla Family History Maternal Grandmother Ovarian cancer Social History Household Members: Spouse Housing: Apartment Are you a primary patient care associate to a significant other at home: No Do 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 have 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 or other home services: Yes (recreational aide) Alcohol intake: never Comment: lozenge given 0588 Patient Tobacco Use Status: Current everyday Tobacco user Tobacco use type: Cigarette Cigarette Packs Per Day: 1 Substance Use Type: Marijuana Advance Directives Date on File: 09/23/20 service: No Current occupational status: disabled 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 Ovidio Lacy presents with progressively worsening right knee pain and mechanical symptoms most likely due to a tear of her medial meniscus. Thus, I will send the patient for an MRI of her right knee for further evaluation. I will see her back once the MRI is completed to discuss the findings and treatment options. Feel free to call me at any time should questions regarding her orthopedic management arise. I spent 20 minutes in reviewing the patient's records and imaging studies, seeing the patient and documenting in the medical record. Orders: Orders MR knee RT wo con Today M25.561 - Pain in right knee Coding Level of Care Code Est Pt Level 3 (84073) Diagnoses Right knee pain M25.561
[2024-01-24 10:46] VITALS: BMI 31.9
== END 2024-01-24 11:07 | disposition home or self-care (01) ==
LOC: HO.HOS 10:39
PROVIDERS: PCP General Practice; Visit Provider Orthopaedic Surgery
DX: M25.561 Pain in right knee (principal)
CPT/HCPCS: 99213

== ENCOUNTER 2024-01-26 10:56 | Outpatient (REF) | payer MEDICAID, SELFPAY ==
[2024-01-26 14:52] LABS: Uric Acid 5.6 mg/dL (2.4-5.7)
== END 2024-01-26 10:57 | disposition home or self-care (01) ==
LOC: HO.HHCL 10:56
PROVIDERS: Visit Provider Internal Medicine
DX: M05.741 Rheumatoid arthritis with rheumatoid factor of right hand without organ or systems involvement (principal); M19.90 Unspecified osteoarthritis, unspecified site
CPT/HCPCS: 36415; 84550

== ENCOUNTER → 2024-02-03 08:09 | Outpatient (REF) | payer MEDICAID, SELFPAY ==
--- NOTE | 2024-02-03 08:14 | CA_ITS ---
Transthoracic Echocardiogram Patient (Last, First, Middle): Ginette Arceo, Gender: Female Date of : 1975 Age: 48 Procedure Date: 02/03/2024 Procedure Type: Transthoracic Echocardiogram Location: OP Height: 167.64 cm Weight: 80.74 kg BSA: 1.90 m2 Heart Rate: 61 bpm BP: 110 / 68 mmHg Cold Type Artist: TO Referring MD: More Liz ARCHIVISTMary Symptoms: R07.2 - Precordial pain Study Quality: Adequate ECG Rhythm: Sinus Conclusions: - The left ventricular systolic function is normal. The visually estimated ejection fraction is between 55-60%. - The basal inferior segment is akinetic. - There is mild mitral valve regurgitation. - There is mild tricuspid valve regurgitation. Findings Left Ventricle Normal left ventricular cavity size. There is normal left ventricular wall thickness. The left ventricular systolic function is normal. The visually estimated ejection fraction is between 55-60%. There is evidence of regional wall motion abnormalities. Diastolic function is normal for age. Wall Motion Rest Echo Findings The basal inferior segment is akinetic. Right Ventricle Normal right ventricular cavity size and systolic function. Atria Both atria are normal in size. Aortic Valve There is a normal trileaflet aortic valve. There is no aortic valve stenosis. There is no aortic valve regurgitation. Mitral Valve The mitral valve appears normal. There is mild mitral valve regurgitation. There is no mitral valve stenosis. Pulmonic Valve There is trace pulmonic valve regurgitation. Tricuspid Valve There is mild tricuspid valve regurgitation. There is no evidence of pulmonary hypertension. Great Vessels The asc aorta is normal in size. Venous The inferior vena cava is normal in size and collapses greater than 50% with inspiration. Pericardium/Pleural There is a trivial pericardial effusion. Prior Study Comparison Changes noted compared to prior study dated: 12/24/2019. see comment on wall motion. Measurements 2D Linear Measurements IVSd: 1.05 0.6-0.9/0.6-1.0 cm LVIDd: 4.69 3.9-5.3/4.2-5.9 cm LVIDd Index: 2.47 2.4-3.2/2.2-3.1 cm/m2 LVIDs: 3.23 2.0-3.6 cm LVPWd: 0.91 0.7-1.1 cm LA Diam: 3.90 2.7-3.8/3.0-4.0 cm LAIDs Index: 2.05 1.5-2.3 cm/m2 LV Mass: 198.42 67-162/88-224 g LV Mass Index: 104.43 43-95/49-115 g/m2 LVOT Diam: 2.00 3.0+(-)1.3 cm 2D Systolic Function EF 4C: 57.90 >55% EF 2C: 63.00 >55% EF BiP: 60.60 >55% Mitral Valve MV Pk E: 0.84 MV PK A: 0.66 MV Decel Time: 200.00 E/A: 1.30 E'Lateral: 9.14 E'Medial: 7.62 E/E' Med: 11.10 E/E' Lat: 9.20 PHT: 59.00 MVA PHT: 3.73 Decel Mccone: 4.22 Aortic Valve AoV Pk Harris: 2.01 AoV Mn Harris: 1.30 AoV VTI: 0.42 AoV Pk Grad: 16.00 Aov Mn Grad: 8.00 DONA Cont.VTI: 1.93 LVOT LVOT Pk Harris: 1.18 LVOT Mn Harris: 0.72 LVOT VTI: 0.26 LVOT Pk Grad: 6.00 LVOT Mn Grad: 3.00 LVOT Diam: 2.00 LVOT Area: 3.14 Diastolic Function MV Pk E: 0.84 MV Pk A: 0.66 E/A: 1.30 E'Medial: 7.62 E/E' Med: 11.10 E' Laterial: 9.14 E/E' Lat: 9.20 Right Ventricle TAPSE (mm): 24.30 TVS' Harris: 12.20 Tricuspid Valve TR Pk Harris: 2.69 TR Pk Grad: 29.00 RA Press: 3.00 RVSP: 32.00 Great Vessels Aorta Sinus of Valsalva: 2.93 2.0-3.[address] [place]: 2.29 1.7-3.4 cm Ao Asc: 3.10 2.1-3.4 cm Updated in Other Vendor System with Status of Final Eriberto Sewell MD electronically signed on 02/04/2024 1:32:59 PM with status of Final
== END ==
LOC: HO.CARD 08:09
PROVIDERS: PCP General Practice; Visit Provider Nurse Practitioner Family
DX: R07.2 Precordial pain (principal); I73.9 Peripheral vascular disease, unspecified; Z92.21 Personal history of antineoplastic chemotherapy
CPT/HCPCS: 93306

== ENCOUNTER → 2024-02-03 08:14 | Outpatient (BNV) | payer MEDICAID, SELFPAY | PROVIDERS: PCP General Practice; Visit Provider Internal Medicine | DX: I34.0 Nonrheumatic mitral (valve) insufficiency (principal); I36.1 Nonrheumatic tricuspid (valve) insufficiency | CPT/HCPCS: 93306 ==

== ENCOUNTER 2024-02-14 09:48 | Outpatient (AMB) | payer MEDICAID, SELFPAY ==
--- NOTE | 2024-02-14 09:55 | A.OFFVIS_ITS ---
Vital Signs 3 02/14/24 10:02 Height 5 ft 6 in Weight 203 lb 7.787 oz BMI 32.8 BP 124/62 Blood Pressure Location Lt brachial Position Sitting Pulse 72 Pulse Source Pulse Oximeter Pulse Oximetry (%) 96 Oxygen Delivery Method Room Air Intake Visit Reasons: hand pain/swelling/CM Intake Note: Patient presents for hand pain/swelling. Swelling and pain on both hands, on left knee and right foot. Checker And Packer Required: Yes Checker And Packer Services: Checker And Packer Present Checker And Packer Name: [id number] Allergies almond [ALMONDS] Allergy (Severe, Verified 02/14/24 10:01) ANAPHYLAXIS adhesive tape [ADHESIVE TAPE] Allergy (Intermediate, Verified 02/14/24 10:01) RASH morphine [MORPHINE] Allergy (Intermediate, Verified 02/14/24 10:01) GI UPSET, difficulty breathing tramadol [TRAMADOL] Adverse Reaction (Unknown, Verified 02/14/24 10:01) NAUSEA & VOMITING Medication List - Last Reconciled 02/14/24 by Simon Elkins MD acetaminophen (Tylenol) 325 mg PO Q4H PRN acetaminophen 500 - 1,000 mg (1 - 2 x 500 mg) PO Q8-10H PRN acetaminophen ER 650 mg PO Q8H PRN albuterol sulfate 90 mcg/actuation (ProAir HFA) 2 puffs PO Q4-6H PRN alprazolam 1 mg PO BEDTIME PRN amoxicillin 500 mg PO Q8H apixaban (Eliquis) 5 mg PO BID ascorbic acid (vitamin C) (Vitamin C) 1,000 mg (2 x 500 mg) PO QAM baricitinib (Olumiant) 2 mg PO DAILY bupropion HCl SR mg PO chlorhexidine gluconate 0.12% 15 mL PO DAILY PRN ferrous sulfate (FeroSul) 1 tab PO QAM fluticasone propionate 50 mcg/actuation 2 sprays intranasal QAM folic acid 1 mg PO QAM lidocaine 5% 1 patch topical DAILY methotrexate sodium 25 mg (10 x 2.5 mg) PO QWEEK oxycodone-acetaminophen 10-325 mg 1 tab PO Q8H PRN pantoprazole 40 mg PO DAILY trazodone 150 mg PO BEDTIME PRN vitamin A 1 cap PO QAM HPI Comments Details: 48-year-old female with seropositive nodular RA returns for follow-up. She is on Olumiant daily, methotrexate 25 mg weekly split dose folic acid 1 mg daily. After last visit, prednisone was discontinued due to left femoral AVN. Patient was evaluated by Orthopedics and no intervention was required. Today patient is complaining of significant bilateral hand pain and swelling, right ankle pain and bilateral pain in her toes. Difficulty walking. most recent hx by Dr. Ram 07/2023:The patient with RA returns today with complaints of pain in the right wrist. Her son accompanies her today and translates for us. She had called us earlier in the week with a flare-up of symptoms in the elbow, wrist and shoulder on the right. At her last visit a month ago I had prescribed baricitinib but for some reason she has yet to receive it. She tells me now the delivery is for tomorrow or the next day. She remains on ibuprofen 800 b.i.d., acetaminophen 1 or 2 b.i.d., methotrexate 20 mg weekly, folic acid 1 mg daily, gabapentin 400 mg t.i.d. and Percocet prescribed by her primary doctor t.i.d. When she had called earlier this week we had her increase her prednisone up to 10 b.i.d. from 5 mg b.i.d. The other joints that hurt her today include the right hand, both knees - left greater than right, and right ankle.She has an orth0 visit latrer today to discuss the left knee. [facility] Medical History Skin lesion Anxiety Achilles tendinitis Superficial femoral artery occlusion Knee pain, left Depression Hx of peripheral pulmonary artery stenosis PAD (peripheral artery disease) History of chemotherapy Cancer of heart Bone cancer Lung cancer Seropositive rheumatoid arthritis Bleeding hemorrhoid Degeneration, intervertebral disc, lumbar Chronic GERD Degeneration of intervertebral disc at C4-C5 level Osteoarthritis of spine with radiculopathy, lumbar region Fibromyalgia Esophageal dysphagia Vitamin D deficiency Systemic lupus erythematosus Seropositive rheumatoid arthritis Rheumatoid arthritis involving multiple sites Gallstones Stress incontinence in female Nocturia Urgency-frequency syndrome De Quervain's disease (tenosynovitis) Depressive disorder Acute arthritis Hodgkin disease Surgical History History of surgical removal of skin lesion (~07/13/23) History of angioplasty of vein History of biopsy H/O tubal ligation Hx of endoscopy Hx laparoscopic cholecystectomy Hx of colonoscopy History of esophagogastroduodenoscopy (EGD) History of repair of inguinal hernia History of lymph node dissection of left axilla Family History Maternal Grandmother Ovarian cancer Social History Household Members: Spouse Housing: Apartment Are you a primary district manager primary care sales to a significant other at home: No Do 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 have 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 or other home services: Yes (design quality engineer) Alcohol intake: never Comment: lozenge given 0869 Patient Tobacco Use Status: Current everyday Tobacco user Tobacco use type: Cigarette Cigarette Packs Per Day: 1 Substance Use Type: Marijuana Advance Directives Date on File: 09/23/20 service: No Current occupational status: disabled 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 of Systems Musc Reports arthralgias, Reports joint swelling, Reports limited range of motion and Reports stiffness Physical Exam Vital Signs: Last Vital Signs Pulse 72 02/14/24 10:02 BP 124/62 02/14/24 10:02 Pulse Ox 96 02/14/24 10:02 Oxygen Delivery Method Room Air 02/14/24 10:02 BMI result Body Mass Index 32.8 Const General: cooperative, healthy appearing and comfortable Nutritional Appearance: obese morbidly obese Orientation/consciousness: patient oriented x3 Limitations: ambulation with cane HEENT Head: Yes normocephalic and Yes atraumatic Mouth: moist mucous membranes Resp Effort & Inspection: normal respiratory effort and able to speak in complete sentences Auscultation: clear to auscultation bilaterally Neuro General: patient oriented x3 Extrem Other: Please see picture Sternal wrist pain with flexion-extension Multiple MCP swelling and tenderness bilaterally significant synovitis affecting right 3rd finger Left thumb swelling Multiple she goes on the palmar aspect of her thumbs Bilateral ankle tenderness Bilateral diffuse MTP tenderness Rheumatoid nodules on elbows Assessment & Plan Assessment & Plan (1) Seropositive rheumatoid arthritis: Comment: RF++CCP++ regularly requiring prednisone. methotrexate and hydroxychloroquine ?2019 Xeljanz 05/2020-08/2020(ineffective) 2020 methotrexate and Humira(HCQ stopped - ?vision changes). 06/2022 Humira stopped due to poor repsonse 06/2022 methotrexate and Actemra 12/2022: Actemra stopped by the patient. She had some leg swelling as well. 03/10/2023 and 03/24/23: 1 g on each day rituximab administered Olumiant 08/2023 effective LT avascular necrosis. Prednisone discontinued 10/2023 Code(s): M05.9 - Rheumatoid arthritis with rheumatoid factor, unspecified Category: Medical Plan: This is a 48-year-old female with seropositive nodular RA who presents for follow-up. After last visit, prednisone was discontinued, I increased her methotrexate to 25 mg weekly she is also on Olumiant 2 mg daily On exam patient has significant synovitis affecting multiple joints. Likely because prednisone has been discontinued due to her left femoral AVN Unfortunately can not restart prednisone, there is risk of progression of her AVN Start leflunomide 10 mg daily for 1 month, if well tolerated and labs are good, will increase to 20 mg daily Continue methotrexate 25 mg weekly Folic acid 1 mg daily and Olumiant 2 mg daily There is some mildly increased risk of thromboembolic events with autoimmune especially given patient's history of thrombosis. Patient however is on Eliquis regularly. Dr. Ram explained this risk before with patient. I agree with Dr. Ram that the risk of DVT is substantially lowered when on Eliquis. In any case, patient has failed or could not tolerate multiple DMARDs for her RA and she continues to have synovitis. She has required large doses of prednisone. 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 Advised patient to call the clinic if she develops any signs of fever or infection (4) Systemic lupus erythematosus: Comment: January 2022: ++DsDNA positive. Rheumatoid factor and CCP antibody markedly positive. This looks more like picture of seropositive RA. Code(s): M32.9 - Systemic lupus erythematosus, unspecified Category: Medical Qualifiers: Systemic lupus erythematosus type: unspecified Systemic lupus erythematosus organ involvement: unspecified Qualified Code(s): M32.9 - Systemic lupus erythematosus, unspecified Plan: I do not see any features of active SLE. She has a positive dsDNA with no specific features of lupus. Will continue to monitor patient for development of features of active SLE. (5) Avascular necrosis of left femoral head: Code(s): M87.052 - Idiopathic aseptic necrosis of left femur Category: Medical Plan: Continue to follow-up with orthopedics Plan I spent 47 minutes reviewing patient's chart, evaluating patient, ordering diagnostic workup, counseling patient and documenting in the chart Orders: Orders 2 Comprehensive Met. Panel 2 Months M05.9 - Rheumatoid arthritis with rheumatoid factor, unspecified, Z79.899 - Other joint terminal attack controller (current) drug therapy C Reactive Protein 2 Months M05.9 - Rheumatoid arthritis with rheumatoid factor, unspecified, Z79.899 - Other joint terminal attack controller (current) drug therapy Comprehensive Met. Panel 1 Month M05.9 - Rheumatoid arthritis with rheumatoid factor, unspecified, Z79.899 - Other joint terminal attack controller (current) drug therapy Erythrocyte Sedimentation Rate 1 Month M05.9 - Rheumatoid arthritis with rheumatoid factor, unspecified, Z79.899 - Other fci (current) drug therapy Comprehensive Met. Panel Today M05.9 - Rheumatoid arthritis with rheumatoid factor, unspecified, Z79.899 - Other joint terminal attack controller (current) drug therapy C Reactive Protein Today M05.9 - Rheumatoid arthritis with rheumatoid factor, unspecified, Z79.899 - Other joint terminal attack controller (current) drug therapy Erythrocyte Sedimentation Rate Today M05.9 - Rheumatoid arthritis with rheumatoid factor, unspecified, Z79.899 - Other joint terminal attack controller (current) drug therapy Immunofixation Pnl, Serum Today M05.9 - Rheumatoid arthritis with rheumatoid factor, unspecified, Z79.899 - Other fci (current) drug therapy Protein Electrophoresis, Serum Today M05.9 - Rheumatoid arthritis with rheumatoid factor, unspecified, Z79.899 - Other joint terminal attack controller (current) drug therapy Complete Blood Count Auto Diff 2 Months M05.9 - Rheumatoid arthritis with rheumatoid factor, unspecified, Z79.899 - Other joint terminal attack controller (current) drug therapy Erythrocyte Sedimentation Rate 2 Months M05.9 - Rheumatoid arthritis with rheumatoid factor, unspecified, Z79.899 - Other joint terminal attack controller (current) drug therapy Complete Blood Count Auto Diff 1 Month M05.9 - Rheumatoid arthritis with rheumatoid factor, unspecified, Z79.899 - Other joint terminal attack controller (current) drug therapy C Reactive Protein 1 Month M05.9 - Rheumatoid arthritis with rheumatoid factor, unspecified, Z79.899 - Other joint terminal attack controller (current) drug therapy Complete Blood Count Auto Diff Today M05.9 - Rheumatoid arthritis with rheumatoid factor, unspecified, Z79.899 - Other joint terminal attack controller (current) drug therapy Rheumatoid Factor Today M05.9 - Rheumatoid arthritis with rheumatoid factor, unspecified, Z79.899 - Other joint terminal attack controller (current) drug therapy Cyclic Citrullinated Peptide Today M05.9 - Rheumatoid arthritis with rheumatoid factor, unspecified, Z79.899 - Other joint terminal attack controller (current) drug therapy Medications: New 2 leflunomide 10 mg PO DAILY 30 tabs 0RF Refilled 2 methotrexate sodium 25 mg (10 x 2.5 mg) PO QWEEK 120 tabs 0RF folic acid 1 mg PO QAM 90 tabs 1RF Coding Level of Care Code Est Pt Level 5 (66571) Complex EM visit Add On G2211 Diagnoses Seropositive rheumatoid arthritis M05.9 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
[2024-02-14 10:02] VITALS: BP 124/62; PULSE 72; O2SAT 96; BMI 32.8
== END 2024-02-14 10:32 | disposition home or self-care (01) ==
PROVIDERS: PCP General Practice; Visit Provider Student in an Organized Health Care Education/Training Program
DX: M05.79 Rheumatoid arthritis with rheumatoid factor of multiple sites without organ or systems involvement (principal); Z79.899 Other long term (current) drug therapy; M32.9 Systemic lupus erythematosus, unspecified; M87.052 Idiopathic aseptic necrosis of left femur
CPT/HCPCS: 99215

== ENCOUNTER → 2024-02-14 09:48 | Outpatient (BNVA) | payer MEDICAID, SELFPAY | PROVIDERS: PCP General Practice; Visit Provider Student in an Organized Health Care Education/Training Program ==

== ENCOUNTER 2024-02-14 10:51 | Outpatient (REF) | payer MEDICAID, SELFPAY ==
[2024-02-14 13:13] LABS: MANUAL DIFF FLAG NO
[2024-02-14 13:15] LABS: Basophils Percent Auto 0.3 % (0-2); Eosinophils Percent Auto 0.6 % (0-4); Hematocrit 35.3 % (37.0-47.0); Hemoglobin 11.5 g/dl (12.0-16.0); Imm Gran Abs Auto 0.02 X10*3/uL (0.00-0.03); Imm Gran Pct Auto 0.3 % (0.0-0.4); Lymphocytes Absolute Auto 1.3 X10*3/uL (1.2-4.9); Lymphocytes Percent Auto 17.9 % (20-40); Mean Corpuscular HGB Conc 32.6 g/dl (31.0-35.0); Mean Corpuscular Hemoglobin 30.9 pg (27.0-33.0); Mean Corpuscular Volume 94.9 fL (80.0-98.0); Mean Platelet Volume 9.8 fL (9.4-12.3); Monocytes Absolute Auto 0.3 X10*3/uL (0.1-1.2); Monocytes Percent Auto 4.2 % (2-11); Neutrophils Absolute Auto 5.6 x10*3/uL (2.0-8.3); Neutrophils Percent Auto 76.7 % (45-73); Platelet Count 295 X10*3/uL (160-400); Red Blood Count 3.72 X10*6/uL (4.20-5.50); Red Cell Distribution Width 14.3 % (11.0-16.0); White Blood Count 7.2 X10*3/uL (4.8-10.8)
[2024-02-14 13:29] LABS: Alanine Aminotransferase 13 U/L (0-31); Albumin Level 4.1 g/dL (3.5-5.0); Alkaline Phosphatase 70 U/L (39-117); Anion Gap 13 (12-20); Aspartate Amino Transferase 15 U/L (5-31); Bilirubin Total 0.2 mg/dL (0.0-1.0); Blood Urea Nitrogen 12 mg/dL (9-16); C Reactive Protein 1.02 mg/dL (< or = 0.50); Calcium 9.5 mg/dL (8.4-10.2); Carbon Dioxide 24 mmol/L (22-29); Chloride 105 mmol/L (96-108); Estimated Glomerular Filt Rate > 60; Glucose Random 97 mg/dL (60-115); Sodium 138 mmol/L (135-145); Total Protein 8.5 g/dL (6.5-8.0)
[2024-02-14 14:17] LABS: Rheumatoid Factor 482.4 IU/mL (<15.0)
[2024-02-14 14:23] LABS: Erythrocyte Sedimentation Rate 70 MM/HR (0-20)
[2024-02-16 14:43] LABS: Cyclic Citrullinated Peptide >250 UNITS
[2024-02-20 22:28] LABS: Prot Elec - Albumin 4.1 g/dL (3.8-4.8); Prot Elec - Alpha1 0.3 g/dL (0.2-0.3); Prot Elec - Alpha2 0.9 g/dL (0.5-0.9); Prot Elec - Beta 1 0.5 g/dL (0.4-0.6); Prot Elec - Beta 2 0.6 g/dL (0.2-0.5); Prot Elec - Gamma 1.8 g/dL (0.8-1.7); Prot Elec - Total Protein 8.2 g/dL (6.1-8.1)
[2024-02-21 14:43] LABS: IgA 593 mg/dL (47-310); IgG 2079 mg/dL (600-1640); IgM 250 mg/dL (50-300)
== END 2024-02-14 10:52 | disposition home or self-care (01) ==
LOC: HO.10HDL 10:51
PROVIDERS: Visit Provider Student in an Organized Health Care Education/Training Program
DX: M05.9 Rheumatoid arthritis with rheumatoid factor, unspecified (principal); M32.9 Systemic lupus erythematosus, unspecified; Z79.899 Other long term (current) drug therapy
CPT/HCPCS: 36415; 80053; 82784; 84165; 85025; 85652; 86140; 86200; 86334; 86431; 99212

== ENCOUNTER 2024-02-20 10:09 | Inpatient (IN) | payer MEDICAID, SELFPAY ==
[2024-02-20] VITALS (7 sets, daily range): BP systolic 99–166; BP diastolic 52–93; PULSE 51–93; RESP 12–20; TEMP 36.2–36.8; O2SAT 96–100; BMI 34.4
--- NOTE | ~2024-02-20 | CT_ITS ---
EXAMINATION: CT ABDOMEN AND PELVIS WITH CONTRAST CLINICAL INFORMATION: Abdominal pain. Rectal bleeding. COMPARISON: 04/21/2023 TECHNIQUE: Multidetector volumetric images were obtained from the superior aspect of the liver through the pubic symphysis following administration 85 mL of Omnipaque 350 intravenous contrast. Sagittal and coronal reformatted images were obtained on the technologist's workstation. Oral contrast: No This CT examination was performed using dose optimization techniques as appropriate, variously including the following: *Automated exposure control *Adjustment of mA and/or kV according to patient size (this includes techniques or standardized protocols for targeted exams where dose is matched to indication/reason for exam; i.e. extremities or head) *Use of iterative reconstruction technique DLP: 642 mGy-cm FINDINGS: LUNG BASES: The visualized lung bases are unremarkable. LIVER, GALLBLADDER, AND BILIARY TREE: The liver is normal in size and contour. No focal hepatic lesion or biliary ductal dilatation is present. The gallbladder is surgically absent. PANCREAS: Unremarkable. SPLEEN: Unremarkable. ADRENAL GLANDS: Unremarkable. KIDNEYS AND URETERS: The kidneys are symmetric in size and enhancement. Few left renal hypodensities too small to characterize. No hydronephrosis. No perinephric stranding. BLADDER: Unremarkable. GASTROINTESTINAL TRACT: No small bowel obstruction. Appendix is within normal limits. ABDOMINAL WALL: Small fat-containing left inguinal hernia. LYMPH NODES: No bulky lymphadenopathy. VASCULAR: Normal caliber abdominal aorta. Chronic occlusion of the left common iliac artery. PELVIC VISCERA: Unremarkable. OSSEOUS STRUCTURES: No destructive bone lesions. CT/CT abdomen pelvis w IV con IMPRESSION: No acute abnormality in the abdomen or pelvis.
[2024-02-20 10:31] LABS: MANUAL DIFF FLAG NO
[2024-02-20 10:33] LABS: Basophils Percent Auto 0.4 % (0-2); Eosinophils Percent Auto 0.8 % (0-4); Hematocrit 37.9 % (37.0-47.0); Hemoglobin 12.4 g/dl (12.0-16.0); Imm Gran Abs Auto 0.01 X10*3/uL (0.00-0.03); Imm Gran Pct Auto 0.2 % (0.0-0.4); Lymphocytes Absolute Auto 2.4 X10*3/uL (1.2-4.9); Lymphocytes Percent Auto 46.8 % (20-40); Mean Corpuscular HGB Conc 32.7 g/dl (31.0-35.0); Mean Corpuscular Hemoglobin 30.2 pg (27.0-33.0); Mean Corpuscular Volume 92.2 fL (80.0-98.0); Mean Platelet Volume 9.6 fL (9.4-12.3); Monocytes Absolute Auto 0.4 X10*3/uL (0.1-1.2); Monocytes Percent Auto 7.8 % (2-11); Neutrophils Absolute Auto 2.2 x10*3/uL (2.0-8.3); Platelet Count 326 X10*3/uL (160-400); Red Blood Count 4.11 X10*6/uL (4.20-5.50); Red Cell Distribution Width 14.3 % (11.0-16.0)
[2024-02-20 10:38] LABS: Prothrombin Time 11.7 SEC (11.1-13.3)
[2024-02-20 10:49] LABS: Alanine Aminotransferase 15 U/L (0-31); Albumin Level 4.6 g/dL (3.5-5.0); Alkaline Phosphatase 69 U/L (39-117); Anion Gap 15 (12-20); Aspartate Amino Transferase 18 U/L (5-31); Bilirubin Total 0.4 mg/dL (0.0-1.0); Blood Urea Nitrogen 13 mg/dL (9-16); Calcium 9.8 mg/dL (8.4-10.2); Carbon Dioxide 21 mmol/L (22-29); Chloride 104 mmol/L (96-108); Creatinine Clr Calc Pharmacy 85.2; Estimated Glomerular Filt Rate > 60; Glucose Random 105 mg/dL (60-115); Potassium 3.5 mmol/L (3.3-5.1); Sodium 136 mmol/L (135-145); Total Protein 9.6 g/dL (6.5-8.0)
--- NOTE | 2024-02-20 11:06 | ED_ITS ---
HPI - GI Bleed General Chief complaint: GI Bleed Stated complaint: Rectal bleeding Time Seen by Provider: 02/20/24 10:33 Source: patient Mode of arrival: ambulatory Limitations: no limitations History of Present Illness HPI Narrative: This is a 48 years old the patient with multiple medical problems which include rheumatoid arthritis, DVT, anticoagulated with apixaban presented to the emergency department complaining of rectal bleeding. Denies any fever vomiting Onset (ago): day(s) (1) Pain Consistency: constant Severity: moderate Relieving factors: none Exacerbating factors: none Associated symptoms: denies other symptoms Related Data Home Medications ?Medication ?Instructions ?Recorded ?Confirmed albuterol sulfate 90 mcg/actuation 2 puff PO Q4-6H PRN Wheezing 10/02/21 02/14/24 aerosol inhaler (ProAir HFA) ferrous sulfate 325 mg (65 mg 1 tab PO QAM 10/02/21 02/14/24 iron) tablet (FeroSul) apixaban 5 mg tablet (Eliquis) 5 mg PO BID 09/22/22 02/14/24 alprazolam 1 mg tablet 1 mg PO BEDTIME PRN Anxiety 12/10/22 02/14/24 bupropion HCl 150 mg tablet,12 hr mg PO 06/09/23 02/14/24 sustained-release fluticasone propionate 50 2 spray intranasal QAM 06/09/23 02/14/24 mcg/actuation nasal spray,suspension trazodone 150 mg tablet 150 mg PO BEDTIME PRN 07/13/23 02/14/24 acetaminophen 650 mg 650 mg PO Q8H PRN pain 10/25/23 02/14/24 tablet,extended release amoxicillin 500 mg capsule 500 mg PO Q8H 10/25/23 02/14/24 chlorhexidine gluconate 0.12 % 15 ml PO DAILY PRN 10/25/23 02/14/24 mouthwash oxycodone-acetaminophen 10 mg-325 1 tab PO Q8H PRN severe pain 12/14/23 02/14/24 mg tablet Previous Rx's ?Medication ?Instructions ?Recorded acetaminophen 500 mg tablet 500 - 1,000 mg (1 - 2 x 500 mg) PO 09/22/22 Q8-10H PRN pain #100 tabs ascorbic acid (vitamin C) 500 mg 1,000 mg (2 x 500 mg) PO QAM #180 09/06/23 tablet (Vitamin C) tabs lidocaine 5 % topical patch 1 patch topical DAILY #15 ea 10/24/23 pantoprazole 40 mg tablet,delayed 40 mg PO DAILY #90 tabs 11/04/23 release vitamin A 3,000 mcg (10,000 unit) 1 cap PO QAM #90 caps 11/30/23 capsule acetaminophen 325 mg capsule 325 mg PO Q4H PRN pain #30 caps 12/02/23 (Tylenol) baricitinib 2 mg tablet (Olumiant) 2 mg PO DAILY #30 tabs 02/14/24 folic acid 1 mg tablet 1 mg PO QAM #90 tabs 02/14/24 leflunomide 10 mg tablet 10 mg PO DAILY #30 tabs 02/14/24 methotrexate sodium 2.5 mg tablet 25 mg (10 x 2.5 mg) PO QWEEK #120 02/14/24 tabs Allergies Allergy/AdvReac Type Severity Reaction Status Date / Time almond [ALMONDS] Allergy Severe ANAPHYLAXIS Verified 02/20/24 10:18 adhesive tape [ADHESIVE TAPE] Allergy Intermediate RASH Verified 02/20/24 10:18 morphine [MORPHINE] Allergy Intermediate GI UPSET, Verified 02/20/24 10:18 difficulty breathing tramadol [TRAMADOL] AdvReac Unknown NAUSEA & Verified 02/20/24 10:18 VOMITING Review of Systems 2 Constitutional: Constitutional: Reports no additional constitutional complaints ENT: Reports system reviewed and no additional complaints, except as documented Cardiovascular: Cardiovascular: Reports no additional cardiovascular complaints Gastrointestinal: Comments: Rectal bleeding Musculoskeletal: Musculoskeletal: Reports no additional musculoskeletal complaints [facility] Past Medical History Attestation statement: The following information was validated with the patient. Source: unable to obtain Medical History Skin lesion Anxiety Achilles tendinitis Superficial femoral artery occlusion Knee pain, left Depression Hx of peripheral pulmonary artery stenosis PAD (peripheral artery disease) History of chemotherapy Cancer of heart Bone cancer Lung cancer Seropositive rheumatoid arthritis Bleeding hemorrhoid Degeneration, intervertebral disc, lumbar Chronic GERD Degeneration of intervertebral disc at C4-C5 level Osteoarthritis of spine with radiculopathy, lumbar region Fibromyalgia Esophageal dysphagia Vitamin D deficiency Systemic lupus erythematosus Seropositive rheumatoid arthritis Rheumatoid arthritis involving multiple sites Gallstones Stress incontinence in female Nocturia Urgency-frequency syndrome De Quervain's disease (tenosynovitis) Depressive disorder Acute arthritis Hodgkin disease Surgical History History of surgical removal of skin lesion (~07/13/23) History of angioplasty of vein History of biopsy H/O tubal ligation Hx of endoscopy Hx laparoscopic cholecystectomy Hx of colonoscopy History of esophagogastroduodenoscopy (EGD) History of repair of inguinal hernia History of lymph node dissection of left axilla Family History Family History Maternal Grandmother Ovarian cancer Social History Social History Household Members: Spouse Housing: Apartment Are you a primary behavioral health care coordinator to a significant other at home: No Do 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 have 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 or other home services: Yes (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 stroke physician) Alcohol intake: never Comment: lozenge given 0880 Patient Tobacco Use Status: Current everyday Tobacco user Tobacco use type: Cigarette Cigarette Packs Per Day: 1 Substance Use Type: Marijuana Advance Directives: No Advance Directives Information Provided: No Advance Directives Date on File: 09/23/20 Do you have a plan to hurt others: No Plan service: No Current occupational status: disabled 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 Physical Exam 2 Vital Signs: Vital Signs: Last Vital Signs Temp 98.1 F 02/20/24 12:13 Pulse 57 02/20/24 12:13 Resp 12 02/20/24 12:13 BP 99/53 L 02/20/24 12:13 Pulse Ox 96 02/20/24 12:13 O2 Del Method Room Air 02/20/24 12:13 BMI result Body Mass Index 34.4 Const: General: cooperative Nutritional Appearance: well nourished O rientation/consciousness: patient oriented x3 Limitations: no limitations HEENT: Head: Yes normal to inspection Ears: hearing grossly normal bilaterally Face and sinus: Yes normal facial exam Neck: Neck: Yes normal visual inspection Chest: Chest palpation & inspection: normal inspection of the chest Resp: Effort & Inspection: normal respiratory effort Auscultation: clear to auscultation bilaterally Cardio: Jugular venous distension: no JVD Rhythm: regular rhythm GI: Inspection: Yes normal to inspection Palpation (GI): Soft to palpation, not firm, nontender and no guarding Skin: General skin exam: no rashes or lesions noted Neuro: General: patient oriented x3 Course Reevaluation(s) Reevaluation #1: spoke with GI Dr Kraft RECOMMEND ADMISSION FOR OBS Time: 15:54 Medications Administered Discontinued Medications Generic Name Dose Route Start Last Admin Trade Name Freq PRN Reason Stop Dose Admin Sodium Chloride 1,000 mls @ 999 mls/hr 02/20/24 12:45 02/20/24 12:43 Ns IVCONT 02/20/24 13:45 999 mls/hr .Q1H1M LAUREN Administration Iohexol 100 ml 02/20/24 12:28 02/20/24 12:28 Iohexol 350 Mg/Ml 100 Ml Infus..Btl IV 02/20/24 12:29 85 ml ONCE ONE Administration Medical Decision Making Medical Decision Making [facility] Narrative: Patient presented to emergency department with rectal bleeding will check labs and reassess Differential Diagnosis Differential Diagnoses: The differential diagnosis associated with the presentation includes Diverticular bleeding/colonic polyps/hemorrhoid/colon cancer Consult Healthcare Provider Management of the patient was discussed with: Hospitalist and Leadlighter (dR KRAFT) Lab Data [facility] Lab Attestation statement: I reviewed the patient's lab results. 02/20/24 10:27 02/20/24 10:27 Labs: Lab Results 02/20/24 02/20/24 Range/Units 10:27 11:15 WBC 5.0 (4.8-10.8) X10*3/uL RBC 4.11 L (4.20-5.50) X10*6/uL Hgb 12.4 (12.0-16.0) g/dl Hct 37.9 (37.0-47.0) % MCV 92.2 (80.0-98.0) fL MCH 30.2 (27.0-33.0) pg MCHC 32.7 (31.0-35.0) g/dl RDW 14.3 (11.0-16.0) % Plt Count 326 (160-400) X10*3/uL MPV 9.6 (9.4-12.3) fL Immature Gran % (Auto) 0.2 (0.0-0.4) % Neut % (Auto) 44.0 L (45-73) % Lymph % (Auto) 46.8 H (20-40) % [place] % (Auto) 7.8 (2-11) % Eos % (Auto) 0.8 (0-4) % Baso % (Auto) 0.4 (0-2) % Lymph # (Auto) 2.4 (1.2-4.9) X10*3/uL [place] # (Auto) 0.4 (0.1-1.2) X10*3/uL Eos # (Auto) 0.0 (0.0-0.4) X10*3/uL Baso # (Auto) 0.0 (0.0-0.2) X10*3/uL Abs Immat Gran (auto) 0.01 (0.00-0.03) X10*3/uL Absolute Neuts (auto) 2.2 (2.0-8.3) x10*3/uL Absolute Nucleated RBC 0.000 (0.0-0.012) X10*3/uL Nucleated RBC % (auto) 0.0 (0.0-0.2) /100WBC PT 11.7 (11.1-13.3) SEC INR 1.0 (0.9-1.1) Sodium 136 (135-145) mmol/L Potassium 3.5 (3.3-5.1) mmol/L Chloride 104 (96-108) mmol/L Carbon Dioxide 21 L (22-29) mmol/L Anion Gap 15 (12-20) BUN 13 (9-16) mg/dL Creatinine 0.86 (0.5-1.4) mg/dL Estim Creat Clear Calc 85.2 Estimated GFR > 60 Random Glucose 105 (60-115) mg/dL Calcium 9.8 (8.4-10.2) mg/dL Total Bilirubin 0.4 (0.0-1.0) mg/dL AST 18 (5-31) U/L ALT 15 (0-31) U/L Alkaline Phosphatase 69 (39-117) U/L Total Protein 9.6 H (6.5-8.0) g/dL Albumin 4.6 (3.5-5.0) g/dL Stool Occult Blood POSITIVE (NEGATIVE) Independent Interpretation I performed an independent interpretation of an: CT Scan External Record Review External record reviewed: Inpatient record Chronic Conditions Patient?s care impacted by: Other (RA/ANTICOAGULATION) Discharge Plan Discharge Clinical Impression: Acute GI bleeding Patient Disposition: Admitted As Inpatient Print Language: Armenian
[2024-02-20 11:46] LABS: OBS Int Ctl Valid YES; OBS1 POSITIVE (NEGATIVE)
[2024-02-20] MEDS: iohexoL 350 MG/ML 100 ML INFUS..BTL IV (12:28)
[2024-02-20] MEDS: 0.9 % Sodium Chloride 1,000 ML 999 ML IVCONT (12:43)
--- NOTE | 2024-02-20 15:54 | P.CNGI_ITS ---
History of Present Illness Data of Consult Service Date: 02/20/24 Requesting physician: Landy Hernandez Primary Care Provider: Unknown Physician HPI Reason for consult: rectal bleeding 48 yr old f with hx of SLE, RA, lymphoma, and hx of DVT on eliquis, being seen for assessment of rectal bleeding Patient had noted 2 weeks of intermittent rectal bleeding with few clots, as well as 2 d of nausea and non bloody emesis. She also noted stools were more loose last few days. She noted a sharp epigastric pain 10/10 without radiation and worse with food. No relieving factors. she denies fevers, weight is nml, appetite is fair. Joints are inflammed, denies taking nsaids. She has noted some dizziness. Last colonoscopy 2018-- normal apart from small internal hemorrhoids. Review of Systems 2 Review of Systems: Constitutional : No Weight loss, No Fever, No Chills ENT/Mouth : No sore throat, No Rhinorrhea Eyes: No Swelling, No Redness Cardiovascular : No Chest Pain, No SOB, No Edema Respiratory : No Cough, No Sputum, No Wheezing Gastrointestinal : see HPI Genitourinary : NO Dysuria, No Urinary Frequency, No Hematuria, No Urgency Musculoskeletal : + joint pain, No Myalgias, + Joint Swelling Skin : No Skin Lesions, No rash Neuro : No Weakness, No Numbness, + Dizziness, No Headache Psych : No Anxiety/Panic, No Depression Heme/Lymph: No Bruising, No Lymphadenopathy Endocrine : No Polyuria, No Polydipsia All other systems reviewed and are negative. [facility] Past Medical History Medical History Skin lesion Anxiety Achilles tendinitis Superficial femoral artery occlusion Knee pain, left Depression Hx of peripheral pulmonary artery stenosis PAD (peripheral artery disease) History of chemotherapy Cancer of heart Bone cancer Lung cancer Seropositive rheumatoid arthritis Bleeding hemorrhoid Degeneration, intervertebral disc, lumbar Chronic GERD Degeneration of intervertebral disc at C4-C5 level Osteoarthritis of spine with radiculopathy, lumbar region Fibromyalgia Esophageal dysphagia Vitamin D deficiency Systemic lupus erythematosus Seropositive rheumatoid arthritis Rheumatoid arthritis involving multiple sites Gallstones Stress incontinence in female Nocturia Urgency-frequency syndrome De Quervain's disease (tenosynovitis) Depressive disorder Acute arthritis Hodgkin disease Family History Family History Maternal Grandmother Ovarian cancer Surgical History Surgical History History of surgical removal of skin lesion (~07/13/23) History of angioplasty of vein History of biopsy H/O tubal ligation Hx of endoscopy Hx laparoscopic cholecystectomy Hx of colonoscopy History of esophagogastroduodenoscopy (EGD) History of repair of inguinal hernia History of lymph node dissection of left axilla Social History Social History Household Members: Spouse Housing: Apartment Are you a primary spiritual care coordinator to a significant other at home: No Do 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 have 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) Alcohol intake: never Comment: lozenge given [phone] Patient Tobacco Use Status: Current everyday Tobacco user Tobacco use type: Cigarette Cigarette Packs Per Day: 1 Substance Use Type: Marijuana Advance Directives: No Advance Directives Information Provided: No Advance Directives Date on File: 09/23/20 Do you have a plan to hurt others: No Plan service: No Current occupational status: disabled 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 Meds Allergies Allergy/AdvReac Type Severity Reaction Status Date / Time almond [ALMONDS] Allergy Severe ANAPHYLAXIS Verified 02/20/24 10:18 adhesive tape [ADHESIVE TAPE] Allergy Intermediate RASH Verified 02/20/24 10:18 morphine [MORPHINE] Allergy Intermediate GI UPSET, Verified 02/20/24 10:18 difficulty breathing tramadol [TRAMADOL] AdvReac Unknown NAUSEA & Verified 02/20/24 10:18 VOMITING Active Medications: Current Medications Sodium Chloride (Ns) 1,000 mls @ 100 mls/hr IVCONT .Q10H [facility] Home Medications ?Medication ?Instructions ?Recorded ?Confirmed ?Last Taken ?Type albuterol sulfate 90 mcg/actuation 2 puff PO Q4-6H PRN Wheezing 10/02/21 02/14/24 Unknown History aerosol inhaler (ProAir HFA) ferrous sulfate 325 mg (65 mg 1 tab PO QAM 10/02/21 02/14/24 12/16/22 History iron) tablet (FeroSul) apixaban 5 mg tablet (Eliquis) 5 mg PO BID 09/22/22 02/14/24 12/16/22 History alprazolam 1 mg tablet 1 mg PO BEDTIME PRN Anxiety 05/12/23 07/16/24 Unknown History bupropion HCl 150 mg tablet,12 hr mg PO 06/09/23 02/14/24 Unknown History sustained-release fluticasone propionate 50 2 spray intranasal QAM 06/09/23 02/14/24 Unknown History mcg/actuation nasal spray,suspension trazodone 150 mg tablet 150 mg PO BEDTIME PRN 07/13/23 02/14/24 Unknown History acetaminophen 650 mg 650 mg PO Q8H PRN pain 10/25/23 02/14/24 Unknown History tablet,extended release amoxicillin 500 mg capsule 500 mg PO Q8H 10/25/23 02/14/24 Unknown History chlorhexidine gluconate 0.12 % 15 ml PO DAILY PRN 10/25/23 02/14/24 Unknown History mouthwash oxycodone-acetaminophen 10 mg-325 1 tab PO Q8H PRN severe pain 12/14/23 02/14/24 Unknown History mg tablet Physical Exam 2 Vital Signs: Vital Signs: Last Vital Signs Temp 98.1 F 02/20/24 12:13 Pulse 57 02/20/24 12:13 Resp 12 02/20/24 12:13 BP 99/53 L 02/20/24 12:13 Pulse Ox 96 02/20/24 12:13 O2 Del Method Room Air 02/20/24 12:13 BMI result Body Mass Index 34.4 EXAM: GENERAL: The patient is well developed and nontoxic. VITAL SIGNS:see workflow HEENT: Nonicteric sclerae, PERRLA, EOMI. Oropharynx clear. Moist mucous membranes. Conjunctivae appear well perfused. No thyroid mass. CHEST: Chest wall is nontender. HEART: Regular rate and rhythm without murmurs. LUNGS: Clear to auscultation bilaterally. ABDOMEN: Soft, positive bowel sounds, tender epigastrium, no organomegaly.no flank tenderness SKIN: No rash, no excessive bruising, petechiae, or purpura. NEUROLOGIC: Cranial nerves II-XII intact without motor/sensory deficit. Psych: normal affect synovitis in hands with swelling Results Labs 02/20/24 10:27 02/20/24 10:27 Labs: Short CBC 02/20/24 Range/Units 10:27 WBC 5.0 (4.8-10.8) X10*3/uL Hgb 12.4 (12.0-16.0) g/dl Hct 37.9 (37.0-47.0) % Plt Count 326 (160-400) X10*3/uL BMP 02/20/24 10:27 Sodium 136 Potassium 3.5 Chloride 104 Carbon Dioxide 21 L BUN 13 Creatinine 0.86 Calcium 9.8 Liver Function 02/20/24 Range/Units 10:27 Total Bilirubin 0.4 (0.0-1.0) mg/dL AST 18 (5-31) U/L ALT 15 (0-31) U/L Alkaline Phosphatase 69 (39-117) U/L Albumin 4.6 (3.5-5.0) g/dL Imaging CT scan - abdomen: Attestation: I personally reviewed and interpreted this imaging study as follows: (no active stranding, stomach thickened, esophageal thickening) Assessment and Plan (1) Rectal bleeding: Status: Acute Plan 1/ Subacute GI bleeding whilst on eliquis, also has nausea, vomiting and diarrhea, ?infectious etiology, ddx: IBD daja given hx of RA, ischemic, PUD, hemorrhoidal bleed PLAN: 1/ Clear today and tomorrow, colyte from tomorrow and EGD, colon on Tue 2/ last dose of eliquis last night, can hold and use mechnical prophylaxis. 3/ can cont with PPI, BId dosing for the moment 4/ avoid nsaids Procedures Date of Service Date of Service: 02/20/24
--- NOTE | 2024-02-20 15:59 | PM.IMHP ---
History of Present Illness Date of Service: 02/20/24 Chief Complaint: Rectal bleed. 48-year-old female with past medical history significant for SLE, rheumatoid arthritis, Hodgkin's lymphoma, chronic pain syndrome, history of DVT on Eliquis presented to [facility] with 2 weeks of intermittent nausea, vomiting nonbloody , as well as diarrhea mostly watery and sometimes bloody , associated with left lower quadrant abdominal pain, chills, denies fever, no headache, no dizziness, no lightheadedness, no shortness of breath of cough, denies use of NSAIDs, no history of alcohol use smokes 1 pack per day, no other family member with similar symptoms, no recent travel, hematocrit 37.9, hemoglobin 12.4, platelet of 326, stable renal function and electrolytes, normal LFTs, elevated total protein 9.6, INR 1, CT abdomen and pelvis showed no acute abnormality in the abdomen or pelvis, patient will be admitted to [facility] for rectal bleed, evaluated by GI plan is to proceed with upper endoscopy and colonoscopy after holding Eliquis for 48 hours. Review of Systems Review of Systems: General no headache, no dizziness no fever ,+ chills. CVS no chest pain, no palpitation. Respiratory no cough, no sob Gastrointestinal nausea, vomiting, abdominal pain and diarrhea no urgency no frequency Skin no rash Musculoskeletal chronic hand pain no acute flare at present Psych no anxiety All other system reviewed and are negative [facility] Medical History Skin lesion Anxiety Achilles tendinitis Superficial femoral artery occlusion Knee pain, left Depression Hx of peripheral pulmonary artery stenosis PAD (peripheral artery disease) History of chemotherapy Cancer of heart Bone cancer Lung cancer Seropositive rheumatoid arthritis Bleeding hemorrhoid Degeneration, intervertebral disc, lumbar Chronic GERD Degeneration of intervertebral disc at C4-C5 level Osteoarthritis of spine with radiculopathy, lumbar region Fibromyalgia Esophageal dysphagia Vitamin D deficiency Systemic lupus erythematosus Seropositive rheumatoid arthritis Rheumatoid arthritis involving multiple sites Gallstones Stress incontinence in female Nocturia Urgency-frequency syndrome De Quervain's disease (tenosynovitis) Depressive disorder Acute arthritis Hodgkin disease Family History Maternal Grandmother Ovarian cancer Surgical History History of surgical removal of skin lesion (~07/13/23) History of angioplasty of vein History of biopsy H/O tubal ligation Hx of endoscopy Hx laparoscopic cholecystectomy Hx of colonoscopy History of esophagogastroduodenoscopy (EGD) History of repair of inguinal hernia History of lymph node dissection of left axilla Social History Household Members: Spouse Housing: Apartment Are you a primary inpatient care manager rn to a significant other at home: No Do 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 have 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 or 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) Alcohol intake: never Comment: lozenge given [id number] Patient Tobacco Use Status: Current everyday Tobacco user Tobacco use type: Cigarette Cigarette Packs Per Day: 1 Smoked in Last 30 Days: Yes Use of substances other than those prescribed or required for medical reasons: No Substance Use Type: Marijuana Advance Directives: No Advance Directives Information Provided: No Advance Directives Date on File: 09/23/20 Do you have a plan to hurt others: No Plan service: No Current occupational status: disabled 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 Meds Allergies Allergy/AdvReac Type Severity Reaction Status Date / Time almond [ALMONDS] Allergy Severe ANAPHYLAXIS Verified 02/20/24 10:18 adhesive tape [ADHESIVE TAPE] Allergy Intermediate RASH Verified 02/20/24 10:18 morphine [MORPHINE] Allergy Intermediate GI UPSET, Verified 02/20/24 10:18 difficulty breathing tramadol [TRAMADOL] AdvReac Unknown NAUSEA & Verified 02/20/24 10:18 VOMITING Active Medications: Current Medications Acetaminophen (Acetaminophen 325 Mg Tablet) 650 mg PO Q6H PRN PRN Reason: Pain, Mild (Pain Scale 1-3), fever or headache Benzonatate (Benzonatate 100 Mg Capsule) 100 mg PO TID PRN PRN Reason: Cough Calcium Carbonate (Calcium Carbonate 750 Mg Tab.Chew) 750 mg PO Q4H PRN PRN Reason: Heartburn Sodium Chloride (Ns) 1,000 mls @ 100 mls/hr IVCONT .Q10H [facility] Magnesium Hydroxide (Milk Of Magnesia 30 Ml Oral.Susp) 30 ml PO DAILY PRN PRN Reason: Constipation Melatonin (Melatonin 3 Mg Tablet) 6 mg PO BEDTIME PRN PRN Reason: Insomnia Nicotine (Nicotine 21 Mg Patch.Td24) 21 mg TRANSDERMA DAILY LAUREN Ondansetron HCl (Ondansetron Hcl 4 Mg/2 Ml Vial) 4 mg IVPUSH Q8H PRN PRN Reason: Nausea and Vomiting Oxycodone HCl (Oxycodone Hcl Immed Release 5 Mg Tablet) 5 mg PO Q6H PRN PRN Reason: Pain, Severe (Pain Scale 7-10) Sodium Chloride (0.9 % Sodium Chloride Flush 3 Ml Syringe) 3 ml IVFLUSH QSHIFT [facility] Home Medications ?Medication ?Instructions ?Recorded ?Confirmed ?Last Taken ?Type ferrous sulfate 325 mg (65 mg 1 tab PO DAILY 10/02/21 02/20/24 02/20/24 02:00 History iron) tablet (FeroSul) apixaban 5 mg tablet (Eliquis) 5 mg PO BID 09/22/22 02/20/24 02/20/24 02:00 History alprazolam 1 mg tablet 1 mg PO BEDTIME PRN Anxiety 12/10/22 02/20/24 02/19/24 History chlorhexidine gluconate 0.12 % 15 ml PO DAILY PRN Bacteria 10/25/23 02/20/24 Unknown History mouthwash oxycodone-acetaminophen 10 mg-325 1 tab PO Q8H PRN severe pain 12/14/23 02/20/24 02/20/24 02:00 History mg tablet albuterol sulfate 90 mcg/actuation 2 puff inhalation Q6H PRN Wheezing 02/20/24 02/20/24 Unknown History aerosol inhaler ascorbic acid (vitamin C) 500 mg 1,000 mg PO DAILY 02/20/24 02/20/24 02/20/24 02:00 History tablet (Vitamin C) cilostazol 100 mg tablet 100 mg PO BID 02/20/24 02/20/24 02/20/24 02:00 History docusate sodium 100 mg capsule 100 mg PO BEDTIME PRN Constipation 02/20/24 02/20/24 Unknown History folic acid 1 mg tablet 1 mg PO DAILY PRN Folic Acid Levels 02/20/24 02/20/24 Unknown History methotrexate sodium 2.5 mg tablet 25 mg PO Q14D 02/20/24 02/20/24 02/09/24 History nicotine 21 mg/24 hr daily 1 patch transdermal DAILY 02/20/24 02/20/24 02/19/24 History transdermal patch vitamin A 3,000 mcg (10,000 unit) 1 cap PO DAILY 02/20/24 02/20/24 02/20/24 02:00 History capsule Physical Exam Vital Signs and Narrative: Vital Signs: Last Vital Signs Temp 98.1 F 02/20/24 12:13 Pulse 57 02/20/24 12:13 Resp 12 02/20/24 12:13 BP 99/53 L 02/20/24 12:13 Pulse Ox 96 02/20/24 12:13 O2 Del Method Room Air 02/20/24 12:13 BMI result Body Mass Index 34.4 Const: Other: General awake alert x3, in no acute distress. Anicteric sclera Neck no JVD. CVS regular rate rhythm, Respiratory lungs clear to auscultation, no respiratory distress, no wheeze, no rhonchi. Gastrointestinal abdomen soft, bowel sounds audible, epigastric tenderness, no distention, no rigidity. Extremities no edema. Neuro non focal ,speech clear. Skin no rash Psych appropriate affect Results Labs 02/20/24 10:27 02/20/24 10:27 Labs: Laboratory Results - last 24 hr 02/20/24 02/20/24 10:27 11:15 MCV 92.2 MCH 30.2 MCHC 32.7 RDW 14.3 Plt Count 326 MPV 9.6 Immature Gran % (Auto) 0.2 Neut % (Auto) 44.0 L Lymph % (Auto) 46.8 H Clarke % (Auto) 7.8 Eos % (Auto) 0.8 Baso % (Auto) 0.4 Lymph # (Auto) 2.4 Clarke # (Auto) 0.4 Eos # (Auto) 0.0 Baso # (Auto) 0.0 Abs Immat Gran (auto) 0.01 Absolute Neuts (auto) 2.2 Absolute Nucleated RBC 0.000 Nucleated RBC % (auto) 0.0 PT 11.7 INR 1.0 Anion Gap 15 Estim Creat Clear Calc 85.2 Estimated GFR > 60 Random Glucose 105 Calcium 9.8 Total Bilirubin 0.4 AST 18 ALT 15 Alkaline Phosphatase 69 Total Protein 9.6 H Albumin 4.6 Stool Occult Blood POSITIVE Imaging Radiologist's Impressions: Impressions Abdomen/Pelvis CT 02/20/24 12:30 IMPRESSION: No acute abnormality in the abdomen or pelvis. Assessment and Plan (1) Rectal bleeding: Status: Acute Plan At 47-year-old female with history of seropositive rheumatoid arthritis, non-Hodgkin's lymphoma, PID, HARINI, history of DVT on Eliquis presented to [facility] due to 2-3 weeks of nausea vomiting, abdominal pain watery And bloody diarrhea noted to have stable H&H but due to persistent diarrhea and abdominal pain will be admitted to [facility]. Acute nausea, vomiting abdominal pain ,diarrhea and GI bleed. DDx, infectious, peptic ulcer disease, hemorrhoidal Check stool pcr, follow CBC clear liquid diet, hold Eliquis, IV PPI Seen by GI they recommend upper endoscopy and colonoscopy on Tuesday after Eliquis held for 48 hours. Seropositive rheumatoid arthritis/lupus hold methotrexate and leflunomide since it can cause nausea and diarrhea. Hold all multivitamins. History of DVT hold Eliquis, recent Doppler study lower extremity showed no DVT. Tobacco use disorder counseling done, nicotine patch 21 mg daily GERD IV Protonix Full code Compression boots will avoid anticoagulation due to GI bleed In my clinical judgment patient required two night inpatient hospitalization for monitoring of CBC/due to rectal bleed and to undergo upper endoscopy and colonoscopy by GI. Quality Stroke Does the patient have a stroke diagnosis?: No VTE Prior VTE?: No VTE Risk Level:: Medical - moderate - high VTE Device Contraindication: N/A - Device Ordered VTE Drug Contraindication: Treatment Not Indicated
[2024-02-20] MEDS: Pantoprazole Sodium 40 MG/10 ML VIAL IVPUSH (16:45)
[2024-02-20] MEDS: 0.9 % Sodium Chloride Flush 3 ML SYRINGE IVFLUSH (16:45)
[2024-02-20] MEDS: 0.9 % Sodium Chloride 1,000 ML 100 ML IVCONT (16:46)
--- NOTE | 2024-02-20 17:08 | PHA.MEDREC ---
Addendum entered by Letitia Holden [facility] 02/20/24 17:33: Per Dr. Elkins's note, pt is to be on both methotrexate and leflunomide; his note says methotrexate 25mg weekly however patient reports taking it every two weeks. Original Note: Pharmacy Consult ? Medication Reconciliation Pharmacy has completed the medication reconciliation. Confirmed medications with patient and help of Home Therapy Clinician. Patient became hysteric after asking about her med list from anxiety for being in the hospital. Patient confirmed she is taking her Methotrexate 2.5mg tab once every other and she last took it 02/09/24. She is currently taking a Nicotine patch once daily and she stated its the 1st step. She confirmed her Eliquis 5mg tablet and she takes it BID, she took one tablet this AM around 2 AM along with her AM meds.
[2024-02-20] MEDS: Nicotine 21 MG PATCH.TD24 TRANSDERMA (17:50)
[2024-02-20] MEDS: ALPRAZolam 0.5 MG TABLET 1 MG PO (19:35)
[2024-02-20] MEDS: oxyCODONE HCl Immed Release 5 MG TABLET PO (20:15)
[2024-02-21] VITALS (7 sets, daily range): BP systolic 122–142; BP diastolic 59–76; PULSE 54–80; RESP 18–20; TEMP 36–36.4; O2SAT 95–98
[2024-02-21] MEDS: 0.9 % Sodium Chloride 1,000 ML 100 ML IVCONT (03:00)
[2024-02-21] MEDS: oxyCODONE HCl Immed Release 5 MG TABLET PO ×4 (03:51→22:28)
[2024-02-21] MEDS: Pantoprazole Sodium 40 MG/10 ML VIAL IVPUSH (06:19)
[2024-02-21] MEDS: ondansetron HCL 4 MG/2 ML VIAL IVPUSH (06:22)
[2024-02-21 06:28] LABS: Hematocrit 34.9 % (37.0-47.0); Hemoglobin 11.4 g/dl (12.0-16.0); Mean Corpuscular HGB Conc 32.7 g/dl (31.0-35.0); Mean Corpuscular Hemoglobin 30.2 pg (27.0-33.0); Mean Corpuscular Volume 92.6 fL (80.0-98.0); Mean Platelet Volume 9.6 fL (9.4-12.3); Platelet Count 278 X10*3/uL (160-400); Red Blood Count 3.77 X10*6/uL (4.20-5.50); Red Cell Distribution Width 14.4 % (11.0-16.0); White Blood Count 5.1 X10*3/uL (4.8-10.8)
[2024-02-21 06:32] LABS: Anion Gap 13 (12-20); Blood Urea Nitrogen 7 mg/dL (9-16); Calcium 9.6 mg/dL (8.4-10.2); Carbon Dioxide 21 mmol/L (22-29); Chloride 108 mmol/L (96-108); Creatinine Clr Calc Pharmacy 98.9; Estimated Glomerular Filt Rate > 60; Glucose Random 118 mg/dL (60-115); Potassium 3.4 mmol/L (3.3-5.1); Sodium 139 mmol/L (135-145)
--- NOTE | 2024-02-21 08:54 | P.PNIM_ITS ---
Subjective Subjective Date of Service: 02/21/24 Interval History: Being followed for nausea vomiting abdominal pain and bloody bowel movements. No recurrent episodes of nausea vomiting or diarrhea since admission, stool studies not sent Tolerating clear liquid diet. Complaining of chronic bilateral hand swelling/left-sided neck discomfort. Later in the morning patient had 1 episode of bowel movement noted to have stool mixed with blood. Review of Systems All other systems are reviewed and are negative Physical Exam 2 Vital Signs: Vital Signs: Last Vital Signs Temp 97.3 F 02/21/24 07:23 Pulse 54 02/21/24 07:23 Resp 20 02/21/24 07:23 BP 122/64 02/21/24 07:23 Pulse Ox 96 02/21/24 07:23 O2 Del Method Room Air 02/21/24 07:23 BMI result Body Mass Index 34.4 Const: Other: General awake alert x3, in no acute distress. Anicteric sclera Neck no JVD. CVS regular rate rhythm, Respiratory lungs clear to auscultation, no respiratory distress, no wheeze, no rhonchi. Gastrointestinal abdomen soft, epigastric and left lower quadrant pain ,bowel sounds audible, , no distention, no rigidity. Extremities no LE edema./mild bilateral hand swelling Neuro non focal ,speech clear. Skin no rash Psych appropriate affect Objective Data Active Medications Acetaminophen (Acetaminophen 325 Mg Tablet) 650 mg PO Q6H PRN PRN Reason: Pain, Mild (Pain Scale 1-3), fever or headache Albuterol Sulfate (Albuterol Sulfate 90 Mcg 8 Gm Inhaler) 2 puff INHALE Q6H PRN PRN Reason: Wheezing Alprazolam (Alprazolam 0.5 Mg Tablet) 1 mg PO BEDTIME PRN PRN Reason: Anxiety Last Admin: 02/20/24 19:35 Dose: 1 mg Documented By: NICOLE Benzonatate (Benzonatate 100 Mg Capsule) 100 mg PO TID PRN PRN Reason: Cough Calcium Carbonate (Calcium Carbonate 750 Mg Tab.Chew) 750 mg PO Q4H PRN PRN Reason: Heartburn Sodium Chloride (Ns) 1,000 mls @ 100 mls/hr IVCONT .Q10H LAUREN Last Admin: 02/21/24 03:00 Dose: 100 mls/hr Documented By: NCIOLE Magnesium Hydroxide (Milk Of Magnesia 30 Ml Oral.Susp) 30 ml PO DAILY PRN PRN Reason: Constipation Melatonin (Melatonin 3 Mg Tablet) 6 mg PO BEDTIME PRN PRN Reason: Insomnia Nicotine (Nicotine 21 Mg Patch.Td24) 21 mg TRANSDERMA DAILY FOR[facility]LY [facility], [facility] Last Admin: 02/20/24 17:50 Dose: 21 mg Documented By: BARAK Ondansetron HCl (Ondansetron Hcl 4 Mg/2 Ml Vial) 4 mg IVPUSH Q8H PRN PRN Reason: Nausea and Vomiting Last Admin: 02/21/24 06:22 Dose: 4 mg Documented By: NICOLE Oxycodone HCl (Oxycodone Hcl Immed Release 5 Mg Tablet) 5 mg PO Q6H PRN PRN Reason: Pain, Severe (Pain Scale 7-10) Last Admin: 02/21/24 03:51 Dose: 5 mg Documented By: NICOLE Pantoprazole Sodium (Pantoprazole Sodium 40 Mg/10 Ml Vial) 40 mg IVPUSH DAILY@0630 FOR[facility]LY [facility], [facility] Last Admin: 02/21/24 06:19 Dose: 40 mg Documented By: NICOLE Sodium Chloride (0.9 % Sodium Chloride Flush 3 Ml Syringe) 3 ml IVFLUSH QSHIFT FOR[facility]LY [facility], [facility] Last Admin: 02/21/24 00:00 Dose: Not Given Documented By: NICOLE Non-Admin Reason: IV Running Labs 02/21/24 06:03 02/21/24 06:03 Labs: Laboratory Results - last 24 hr 02/20/24 02/20/24 02/21/24 10:27 11:15 06:03 MCV 92.2 92.6 MCH 30.2 30.2 MCHC 32.7 32.7 RDW 14.3 14.4 Plt Count 326 278 MPV 9.6 9.6 Immature Gran % (Auto) 0.2 Neut % (Auto) 44.0 L Lymph % (Auto) 46.8 H [place] % (Auto) 7.8 Eos % (Auto) 0.8 Baso % (Auto) 0.4 Lymph # (Auto) 2.4 [place] # (Auto) 0.4 Eos # (Auto) 0.0 Baso # (Auto) 0.0 Abs Immat Gran (auto) 0.01 Absolute Neuts (auto) 2.2 Absolute Nucleated RBC 0.000 0.000 Nucleated RBC % (auto) 0.0 0.0 PT 11.7 INR 1.0 Anion Gap 15 13 Estim Creat Clear Calc 85.2 98.9 Estimated GFR > 60 > 60 Random Glucose 105 118 H Calcium 9.8 9.6 Total Bilirubin 0.4 AST 18 ALT 15 Alkaline Phosphatase 69 Total Protein 9.6 H Albumin 4.6 Stool Occult Blood POSITIVE Assessment and Plan (1) Rectal bleeding: Status: Acute Plan 47-year-old female with history of seropositive rheumatoid arthritis, non- Hodgkin's lymphoma, PAD, HARINI, history of DVT on Eliquis presented to [facility] due to 2-3 weeks of nausea vomiting, abdominal pain watery And bloody diarrhea noted to have stable H&H but due to persistent diarrhea and abdominal pain admitted to [facility]. Acute nausea, vomiting abdominal pain ,diarrhea and bloody bm. DDx, infectious, peptic ulcer disease, hemorrhoidal bleed No recurrent episode of nausea vomiting and had 1 episode of loose stool mixed with blood stool pcr uncollected, since no diarrhea, hematocrit dropped but close to baseline Follow CBC and clinical course Case discussed with Dr. Gambino he recommend advance to regular diet today, change to clear liquid diet tomorrow /and bowel prep, hold Eliquis, IV PPI upper endoscopy and colonoscopy on . Due to recurrent diarrhea will place on full liquid diet Oxycodone for pain control, patient is allergic to morphine,and tramadol. Patient feels she is also bleeding from front, is perimenopausal ,recommend outpatient follow-up with OBGYN. Seropositive rheumatoid arthritis/lupus hold methotrexate and leflunomide since it can cause nausea and diarrhea. Hold all multivitamins. Muscular neck and hand pain recommend Tylenol History of DVT hold Eliquis, recent Doppler study lower extremity showed no DVT. Tobacco use disorder counseling done, nicotine patch 21 mg daily Mood disorder on Xanax , feels anxious will place on as needed Xanax GERD IV Protonix Full code Compression boots will avoid anticoagulation due to GI bleed In my clinical judgment patient requires continued inpatient hospitalization for monitoring of CBC/due to rectal bleed on Eliquis and to undergo upper endoscopy and colonoscopy by GI. Quality Stroke Does the patient have a stroke diagnosis?: No VTE Prior VTE?: No VTE Risk Level:: Medical - moderate - high VTE Device Contraindication: N/A - Device Ordered VTE Drug Contraindication: Treatment Not Indicated
[2024-02-21] MEDS: Nicotine 21 MG PATCH.TD24 TRANSDERMA (09:35)
[2024-02-21] MEDS: 0.9 % Sodium Chloride Flush 3 ML SYRINGE IVFLUSH ×2 (09:36→16:24)
--- NOTE | 2024-02-21 09:37 | PC.NURSE ---
BM with some small bloody clots in the toilet, c/o severe burning pain to whole mid abdomen , DR Hernandez was notified
--- NOTE | 2024-02-21 10:40 | MHC.CM.PN ---
This CM met with pt with the assistance of a inside sales recruiter to complete CM intake assessment. Pt lives at home with her , and has MED SURG RN services, uses a cane and rollater walker. Pts son/MED SURG RN will transport her home at discharge. HCP on file and verified. PCP: Dr. Mackenzie Estrada
[2024-02-21] MEDS: ALPRAZolam 0.5 MG TABLET 1 MG PO ×2 (10:58→22:28)
[2024-02-21 13:17] LABS: Adenovirus F 40/41 Not Detected (Not Detect.); Astrovirus Not Detected (Not Detect.); Campylobacter Not Detected (Not Detect.); Cryptosporidium Not Detected (Not Detect.); Cyclospora cayetanensis Not Detected (Not Detect.); E. coli EAEC Not Detected (Not Detect.); E. coli EPEC Not Detected (Not Detect.); E. coli ETEC Not Detected (Not Detect.); E. coli STEC Not Detected (Not Detect.); Entamoeba histolytica Not Detected (Not Detect.); Giardia lamblia Not Detected (Not Detect.); Norovirus GI/GII Not Detected (Not Detect.); Plesiomonas shigelloides Not Detected (Not Detect.); Rotavirus A Not Detected (Not Detect.); Salmonella Not Detected (Not Detect.); Sapovirus Not Detected (Not Detect.); Shigella sp./EIEC Not Detected (Not Detect.); Vibrio Not Detected (Not Detect.); Vibrio Cholerae Not Detected (Not Detect.); Yersinia enterocolitica Not Detected (Not Detect.)
[2024-02-21] MEDS: Calcium Carbonate 750 MG TAB.CHEW PO (21:24)
[2024-02-22 03:34] VITALS: BP 115/57; PULSE 66; RESP 18; TEMP 36.2; O2SAT 95
[2024-02-22] MEDS: oxyCODONE HCl Immed Release 5 MG TABLET PO (05:50)
[2024-02-22] MEDS: Pantoprazole Sodium 40 MG/10 ML VIAL IVPUSH (05:51)
[2024-02-22 06:40] LABS: Hematocrit 34.8 % (37.0-47.0); Hemoglobin 11.3 g/dl (12.0-16.0); Mean Corpuscular HGB Conc 32.5 g/dl (31.0-35.0); Mean Corpuscular Hemoglobin 30.3 pg (27.0-33.0); Mean Corpuscular Volume 93.3 fL (80.0-98.0); Mean Platelet Volume 9.5 fL (9.4-12.3); Platelet Count 258 X10*3/uL (160-400); Red Blood Count 3.73 X10*6/uL (4.20-5.50); Red Cell Distribution Width 14.3 % (11.0-16.0); White Blood Count 3.9 X10*3/uL (4.8-10.8)
[2024-02-22 06:44] LABS: Anion Gap 14 (12-20); Blood Urea Nitrogen 6 mg/dL (9-16); Calcium 9.9 mg/dL (8.4-10.2); Carbon Dioxide 24 mmol/L (22-29); Chloride 106 mmol/L (96-108); Creatinine Clr Calc Pharmacy 89.3; Estimated Glomerular Filt Rate > 60; Glucose Random 112 mg/dL (60-115); Potassium 3.7 mmol/L (3.3-5.1); Sodium 140 mmol/L (135-145)
[2024-02-22 07:10] VITALS: BP 140/78; PULSE 74; RESP 20; TEMP 36; O2SAT 96
[2024-02-22] MEDS: Nicotine 21 MG PATCH.TD24 TRANSDERMA (08:21)
[2024-02-22] MEDS: 0.9 % Sodium Chloride Flush 3 ML SYRINGE IVFLUSH ×2 (08:22→16:37)
[2024-02-22 11:12] VITALS: BP 121/77; PULSE 67; RESP 20; TEMP 36.3; O2SAT 100
--- NOTE | 2024-02-22 11:26 | MHC.CM.PN ---
EMR reviewed and per MD rounds pt is not medically cleared for discharge due to pending EDG/colonoscopy scheduled to be performed tomorrow.
[2024-02-22] MEDS: oxyCODONE HCl Immed Release 5 MG TABLET 10 MG PO ×3 (11:44→20:31)
[2024-02-22] MEDS: ALPRAZolam 0.5 MG TABLET 1 MG PO ×2 (11:45→20:30)
--- NOTE | 2024-02-22 14:37 | P.PNIM_ITS ---
Subjective Subjective Date of Service: 02/22/24 Interval History: No acute issues overnight; no further bleeding noted Review of Systems Denies chest pain Denies shortness of breath Denies nausea vomiting diarrhea Denies fever chills Physical Exam 2 Vital Signs: Vital Signs: Last Vital Signs Temp 97.4 F 02/22/24 11:12 Pulse 67 02/22/24 11:12 Resp 20 02/22/24 11:12 BP 121/77 02/22/24 11:12 Pulse Ox 100 02/22/24 11:12 O2 Del Method Room Air 02/22/24 11:12 BMI result Body Mass Index 34.4 Const: Other: Awake alert no acute distress Resp: Other: Clear to auscultation bilaterally no rales rhonchi or wheezes Cardio: Other: No S4; positive S1-S2; no S3 murmurs rubs or gallops GI: Other: Soft nontender nondistended normoactive bowel sounds Extrem: Other: No edema bilaterally Objective Data Active Medications Acetaminophen (Acetaminophen 325 Mg Tablet) 650 mg PO Q6H PRN PRN Reason: Pain, Mild (Pain Scale 1-3), fever or headache Albuterol Sulfate (Albuterol Sulfate 90 Mcg 8 Gm Inhaler) 2 puff INHALE Q6H PRN PRN Reason: Wheezing Alprazolam (Alprazolam 0.5 Mg Tablet) 1 mg PO Q8H PRN PRN Reason: Anxiety Last Admin: 02/22/24 11:45 Dose: 1 mg Documented By: TIM Benzonatate (Benzonatate 100 Mg Capsule) 100 mg PO TID PRN PRN Reason: Cough Calcium Carbonate (Calcium Carbonate 750 Mg Tab.Chew) 750 mg PO Q4H PRN PRN Reason: Heartburn Last Admin: 02/21/24 21:24 Dose: 750 mg Documented By: CAMDEN Magnesium Hydroxide (Milk Of Magnesia 30 Ml Oral.Susp) 30 ml PO DAILY PRN PRN Reason: Constipation Melatonin (Melatonin 3 Mg Tablet) 6 mg PO BEDTIME PRN PRN Reason: Insomnia Nicotine (Nicotine 21 Mg Patch.Td24) 21 mg TRANSDERMA DAILY LAUREN Last Admin: 02/22/24 08:21 Dose: 21 mg Documented By: TIM Ondansetron HCl (Ondansetron Hcl 4 Mg/2 Ml Vial) 4 mg IVPUSH Q8H PRN PRN Reason: Nausea and Vomiting Last Admin: 02/21/24 06:22 Dose: 4 mg Documented By: NICOLE Oxycodone HCl (Oxycodone Hcl Immed Release 5 Mg Tablet) 10 mg PO Q4H PRN PRN Reason: Pain, Moderate(Pain Scale 4-6) Last Admin: 02/22/24 11:44 Dose: 10 mg Documented By: TIM Pantoprazole Sodium (Pantoprazole Sodium 40 Mg/10 Ml Vial) 40 mg IVPUSH DAILY@0630 [facility] Last Admin: 02/22/24 05:51 Dose: 40 mg Documented By: LAFLAMFreddie Sodium Chloride (0.9 % Sodium Chloride Flush 3 Ml Syringe) 3 ml IVFLUSH QSHIFT [facility] Last Admin: 02/22/24 08:22 Dose: 3 ml Documented By: TIM Labs 02/22/24 06:09 02/22/24 06:09 Labs: Laboratory Results - last 24 hr 02/22/24 06:09 MCV 93.3 MCH 30.3 MCHC 32.5 RDW 14.3 Plt Count 258 MPV 9.5 Absolute Nucleated RBC 0.000 Nucleated RBC % (auto) 0.0 Anion Gap 14 Estim Creat Clear Calc 89.3 Estimated GFR > 60 Random Glucose 112 Calcium 9.9 Assessment and Plan (1) Acute GI bleeding: Status: Acute (2) Seropositive rheumatoid arthritis: Status: Acute Plan 47-year-old female with history of seropositive rheumatoid arthritis, non- Hodgkin's lymphoma, PAD, HARINI, history of DVT on Eliquis presented to [facility] due to 2-3 weeks of nausea vomiting, abdominal pain watery And bloody diarrhea noted to have stable H&H but due to persistent diarrhea and abdominal pain admitted to [facility]. 1. Acute lower GI bleed (rectal) -Eliquis on hold -clear liquid diet today; NPO after midnight -for EGD/colon in a.m. 2.Seropositive rheumatoid arthritis/lupus -hold methotrexate / leflunomide (nausea/diarrhea) -resume when clinically appropriate 3.GERD -IV Protonix Full code Compression boots Requires ongoing hospitalization to complete prep for EGD and colonoscopy; specialty consultation with procedures in a.m. Quality Stroke Does the patient have a stroke diagnosis?: No VTE Prior VTE?: No VTE Risk Level:: Medical - moderate - high VTE Device Contraindication: N/A - Device Ordered VTE Drug Contraindication: Treatment Not Indicated
[2024-02-22 15:21] VITALS: BP 133/66; PULSE 76; RESP 21; TEMP 36.7; O2SAT 100
[2024-02-22 19:18] VITALS: BP 135/79; PULSE 69; RESP 18; TEMP 36.3; O2SAT 98
[2024-02-22] MEDS: PEG 3350/Na Sulf,Bicarb,Cl/KCL 4,000 ML SOLN.RECON 4000 ML PO (19:46)
[2024-02-22 23:50] VITALS: BP 144/76; PULSE 77; RESP 18; TEMP 36; O2SAT 100
[2024-02-23] VITALS (8 sets, daily range): BP systolic 115–154; BP diastolic 58–84; PULSE 64–83; RESP 16–20; TEMP 36.2–36.7; O2SAT 95–98
[2024-02-23] MEDS: hydrOXYzine HCL 50 MG TABLET PO (00:32)
[2024-02-23] MEDS: oxyCODONE HCl Immed Release 5 MG TABLET 10 MG PO ×2 (00:32→06:00)
[2024-02-23] MEDS: Pantoprazole Sodium 40 MG/10 ML VIAL IVPUSH (05:57)
[2024-02-23] MEDS: Nicotine 21 MG PATCH.TD24 TRANSDERMA (09:12)
[2024-02-23] MEDS: 0.9 % Sodium Chloride Flush 3 ML SYRINGE IVFLUSH (09:12)
[2024-02-23] MEDS: Acetaminophen 325 MG TABLET 650 MG PO (09:15)
--- NOTE | 2024-02-23 12:44 | MHC.SHP ---
Pre-Procedural Eval Section A - 24 Hr Update-Section A only Date of Service: 02/23/24 The patient is an INPATIENT: Yes The patient has been examined within 24 hours of the surgical procedure. The History & Physical has been completed within 30 days and I have reviewed it.: Yes Section B - Complete if H&P > 30 days Chief Complaint: GI bleed Allergies: Allergies Allergy/AdvReac Type Severity Reaction Status Date / Time almond [ALMONDS] Allergy Severe ANAPHYLAXIS Verified 02/20/24 10:18 adhesive tape [ADHESIVE TAPE] Allergy Intermediate RASH Verified 02/20/24 10:18 morphine [MORPHINE] Allergy Intermediate GI UPSET, Verified 02/20/24 10:18 difficulty breathing tramadol [TRAMADOL] AdvReac Unknown NAUSEA & Verified 02/20/24 10:18 VOMITING Plan Diagnosis/Plan: Unchanged I have reviewed the history and physical and performed a pertinent physical examination on my patient. No changes have occurred unless specified. Time Spent With Patient Time: Total time managing care of this patient today ____ minutes.
--- NOTE | 2024-02-23 12:45 | P.PNGI_ITS ---
Subjective Subjective Date of Service: 02/23/24 Interval History: she is much more relaxed not noted any more blood in stool no nausea or vomiting no abdominal pain she wants to eat HGB been stable close to baseline mood also more relaxed Critical Care Time (minutes): 0 Physical Exam 2 Vital Signs: Vital Signs: Last Vital Signs Temp 98.0 F 02/23/24 12:23 Pulse 69 02/23/24 12:23 Resp 18 02/23/24 12:23 BP 119/67 02/23/24 12:23 Pulse Ox 95 02/23/24 12:23 O2 Del Method Room Air 02/23/24 12:23 BMI result Body Mass Index 34.4 EXAM: GENERAL: The patient is well developed and nontoxic. VITAL SIGNS:see workflow HEENT: Nonicteric sclerae, PERRLA, EOMI. Oropharynx clear. Moist mucous membranes. Conjunctivae appear well perfused. No thyroid mass. CHEST: Chest wall is nontender. HEART: Regular rate and rhythm without murmurs. LUNGS: Clear to auscultation bilaterally. ABDOMEN: Soft, positive bowel sounds, nontender, no organomegaly.no flank tenderness SKIN: No rash, no excessive bruising, petechiae, or purpura. NEUROLOGIC: Cranial nerves II-XII intact without motor/sensory deficit. Psych: normal affect Objective Data Labs 02/22/24 06:09 02/22/24 06:09 Procedures Date of Service Date of Service: 02/23/24 Progress Note: A&P Assessment and plan (1) Rectal bleeding: Status: Acute Plan 1/ Rectal bleeding with nausea and epigastric pain, ddX: lower GIB, colitis, hemorrhoids, but with epigastric pain and nausea can;t exclude upper cause either also could be med related or 2/2 CTD PLAN: 1/ cont PPI 2/ EGD and colo today for further assessment Time Spent With Patient Time: Total time managing care of this patient today ____ minutes. Quality Stroke Does the patient have a stroke diagnosis?: No VTE Prior VTE?: No VTE Risk Level:: Medical - moderate - high VTE Device Contraindication: N/A - Device Ordered VTE Drug Contraindication: Treatment Not Indicated
[2024-02-23] MEDS: Lactated Ringers 1,000 ML 50 ML IVCONT (12:49)
--- NOTE | 2024-02-23 14:11 | HO.OPN-COLON ---
Colonoscopy Operative Note Operative Note Date of Service: 02/23/24 Narrative: Operative Information Procedure Description: EGD, Colonoscopy Indication: nausea, rectal bleeding Anesthesia: MAC FLEXIBLE TRANSORAL UPPER GASTROINTESTINAL ENDOSCOPY AND COLONOSCOPY PROCEDURE NOTE UPPER ENDOSCOPY Consent: Indications for the procedure and potential complications of bleeding, perforation, reaction to medications and missed diagnosis were discussed with the patient and informed consent was obtained. Instrument: Olympus GIF H 190 J mid size upper endoscope Monitoring: Vital signs and clinical assessment, continuous EKG monitoring, Pulse oximetry, Carbon Dioxide monitoring and blood pressure monitoring were done throughout the procedure. Procedure: The patient was placed in the left lateral decubitis position and pre-procedure medications were administered and a bite block was placed. The endoscope was inserted into the mouth and advanced under direct vision to the third part of duodenum. A careful inspection was made as the upper endoscope was withdrawn including a retroflexed examination of the proximal stomach; Findings and interventions are described below. Findings: Larynx:normal Esophagus: GE junction at 36 cm, diaphragm hiatus at 38 cm, consistent with 2 cm sliding hiatal hernia, mild erythema at GEJ, bx taken Stomach: Patchy erythema with bile acid refluxate noted. Biopsies were obtained. Grade 2 flap valve on retroflexed examination of the cardia. Duodenum: Normal bulb and descending duodenum, bx taken Intervention: Biopsies as noted above, COLONOSCOPY Instrument: Olympus variable stiffness pediatric scope 190L Colonoscopy Monitoring: Vital signs and clinical assessment, continuous EKG monitoring, Pulse oximetry, Carbon Dioxide monitoring and blood pressure monitoring were done throughout the procedure. Colon withdrawal time was 8 minutes. Procedure: The patient was placed in the left lateral decubitis position and pre-procedure medications were administered. After a digital rectal examination of the ano-rectum, the video colonoscope was inserted into the rectum and advanced through the colon to the cecum/TI. The colonoscope was slowly withdrawn in a retrograde panoramic fashion and the colon mucosa was carefully examined including a retroflexed view of the rectum. Findings and interventions are described below. Procedure Difficulty:moderate Findings: Terminal Ileum- superficially intubated and normal random colon bx taken, slightly granular mucosa in some areas Cecum:normal Ascending Colon: normal Transverse Colon -normal Descending Colon:normal Sigmoid Colon: normal Rectum: Retroflexion with medium sized internal hemorrhoids, grade I Anorectum - normal Colon preparation: [place] Bowel Preparation Scale Right colon; 2 Transverse colon: 2 Left colon; 2 (0 = Unprepared colon segment with mucosa not seen due to solid stool that cannot be cleared. 1 = Portion of mucosa of the colon segment seen, but other areas of the colon segment not well seen due to staining, residual stool and/or opaque liquid. 2 = Minor amount of residual staining, small fragments of stool and/or opaque liquid, but mucosa of colon segment seen well. 3 = Entire mucosa of colon segment seen well with no residual staining, small fragments of stool or opaque liquid) Impression and Post Procedure Diagnosis: Endoscopy Findings: bile acid reflux gastritis Colonoscopy Findings: internal hemorrhoids Plan: Await Pathology results Repeat Colonoscopy in 10 years or earlier if clinically indicated High fiber diet leaflet avoid straining at stool, epsom salts and sitz bath, anusol supps or cream cont PPI, can add ursodiol 500 mg BID ok to restart eliquis --bleeding seems likely from hemorrhoids advance diet Above findings were reviewed with the patient and relevant handouts were provided if indicated.
--- NOTE | 2024-02-23 15:00 | PM.DS ---
DS: Providers Provider Date of Service: 02/23/24 Date of admission: 02/20/24 15:52 Date of discharge: 02/23/24 Primary care physician: Mackenzie Estrada MD Consults: 02/20/24 15:16 Consult to Gastroenterology Stat Consulting Provider: Verna Gambino Reason for consultation: gi bleeding Has provider been notified: Yes 02/20/24 15:57 Consult to Gastroenterology Routine Consulting Provider: Verna Gambino Reason for consultation: gi bleed Has provider been notified: No DS: Diagnosis Discharge Diagnosis (1) Rectal bleeding: Status: Acute (2) Internal bleeding hemorrhoids: Status: Acute DS: Summary Hospital Course Hospital Course: 48-year-old female with past medical history significant for SLE, rheumatoid arthritis, Hodgkin's lymphoma, chronic pain syndrome, history of DVT on Eliquis presented to [facility] with 2 weeks of intermittent nausea, vomiting nonbloody , as well as diarrhea mostly watery and sometimes bloody , associated with left lower quadrant abdominal pain, chills, denies fever, no headache, no dizziness, no lightheadedness, no shortness of breath of cough, denies use of NSAIDs, no history of alcohol use smokes 1 pack per day, no other family member with similar symptoms, no recent travel, hematocrit 37.9, hemoglobin 12.4, platelet of 326, stable renal function and electrolytes, normal LFTs, elevated total protein 9.6, INR 1, CT abdomen and pelvis showed no acute abnormality in the abdomen or pelvis, patient will be admitted to [facility] for rectal bleed, evaluated by GI plan is to proceed with upper endoscopy and colonoscopy after holding Eliquis for 48 hours. Hospital course Patient admitted to telemetry and monitor remained without acute abnormalities. She was seen in consultation by GI and on 02/23/2024 underwent EGD and colonoscopy. Preliminary results as verbally reported by GI. . . Hemorrhoids with the only issue. At this point in time patient is medically acceptable for discharge Time Attestation Discharge Coordination Time (in mins): 35 Quality: Safe Use of Opioids Does Pt have an Active Cancer Diagnosis on the Problem List?: No Quality: Stroke Does the patient have a stroke diagnosis?: No Physical Exam Vital Signs: Vital Signs: Last Vital Signs Temp 97.7 F 02/23/24 14:44 Pulse 82 02/23/24 14:44 Resp 20 02/23/24 14:44 BP 154/84 H 02/23/24 14:44 Pulse Ox 98 02/23/24 14:44 O2 Del Method Room Air 02/23/24 14:44 BMI result Body Mass Index 34.4 Const: Other: Awake alert no acute distress Resp: Other: Clear to auscultation bilaterally no rales rhonchi or wheezes Cardio: Other: No S4; positive S1-S2; no S3 murmurs rubs or gallops GI: Other: Soft nontender nondistended normoactive bowel sounds Extrem: Other: No edema bilaterally DS: Data Data Completed and Pending Pending studies at discharge: Pending at discharge 02/23/24 13:56 Surgical [PTH] Routine Discharge Plan Discharge Anticipated Discharge Date/Time: 02/23/24 14:49 Patient Disposition: Home, Self-Care Discharge Diagnosis: Hemorrhoidal bleeding Referrals: Mackenzie Estrada MD [Primary Care Provider] - 1 Week Discharge Medications: New ursodiol 250 mg tablet 250 mg PO BID Qty: 60 0RF Continued ferrous sulfate [FeroSul] 325 mg (65 mg iron) tablet 1 tab PO DAILY cilostazol 100 mg tablet 100 mg PO BID docusate sodium 100 mg capsule 100 mg PO BEDTIME PRN (Reason: Constipation) albuterol sulfate 90 mcg/actuation Hfa Aerosol Inhaler 2 puff INHALATION Q6H PRN (Reason: Wheezing) vitamin A 3,000 mcg (10,000 unit) capsule 1 cap PO DAILY ascorbic acid (vitamin C) [Vitamin C] 500 mg tablet 1,000 mg PO DAILY methotrexate sodium 2.5 mg tablet 25 mg PO Q14D folic acid 1 mg tablet 1 mg PO DAILY PRN (Reason: Folic Acid Levels) nicotine 21 mg/24 hr Patch 24 Hour 1 patch TRANSDERMAL DAILY alprazolam 1 mg tablet 1 mg PO BEDTIME PRN (Reason: Anxiety) Eliquis 5 mg tablet 5 mg PO BID chlorhexidine gluconate 0.12 % mouthwash 15 ml PO DAILY PRN (Reason: Bacteria) pantoprazole 40 mg tablet,delayed release (DR/EC) 40 mg PO DAILY Qty: 90 1RF leflunomide 10 mg tablet 10 mg PO DAILY Qty: 30 0RF oxycodone-acetaminophen 10-325 mg tablet 1 tab PO Q8H PRN (Reason: severe pain) Diet: Advance to usual diet Activity on Discharge: As tolerated Stand Alone Forms: Patient Portal Discharge page Print Language: Khmer Care Plan Goals: Resume all medicines as taken prior to hospital. Resume Kristofer vasques Health Concerns: Ursodiol has been added to your regimen Plan of Treatment: Follow-up with GI and PCP as scheduled Assessment: See discharge summary
--- NOTE | 2024-02-23 15:45 | MHC.CM.PN ---
Per ROUNDS discussion, Patient will be medically cleared for dc to home today, self care. Patient's Son/[employer]PER[employer] will transport to home.
== END 2024-02-23 19:15 | disposition home or self-care (01) | DRG 254 ==
LOC: HO.ED 15:54 → HO.EDOVER 16:04 → HO.IMC 17:20
PROVIDERS: Internal Medicine Gastroenterology; Admitting Provider Hospitalist; Emergency Provider Emergency Medicine; PCP General Practice; Visit Provider Hospitalist
PROC: 0DB98ZX Excision of Duodenum, Via Natural or Artificial Opening Endoscopic, Diagnostic (ICD-10-PCS; CPT 45378; principal; 2024-02-23 13:30)
DX: K64.0 First degree hemorrhoids (principal); C81.90 Hodgkin lymphoma, unspecified, unspecified site; M32.9 Systemic lupus erythematosus, unspecified; F17.210 Nicotine dependence, cigarettes, uncomplicated; K62.5 Hemorrhage of anus and rectum; K29.60 Other gastritis without bleeding; G89.4 Chronic pain syndrome; F39 Unspecified mood [affective] disorder; K44.9 Diaphragmatic hernia without obstruction or gangrene; K21.9 Gastro-esophageal reflux disease without esophagitis; M05.9 Rheumatoid arthritis with rheumatoid factor, unspecified; Z71.6 Tobacco abuse counseling; Z79.01 Long term (current) use of anticoagulants; Z86.718 Personal history of other venous thrombosis and embolism; Z79.631 Long term (current) use of antimetabolite agent; Z79.899 Other long term (current) drug therapy
CPT/HCPCS: 45378; 43239; 36415; 74177; 80048; 80053; 82272; 85025; 85027; 85610; 87507; 88305; 88313; 88342; 96361; 96374; 96375; 96376; 99222; 99285; J1596; J2405; J2470; J2704; J7120; Q9967

== ENCOUNTER → 2024-02-20 15:52 | Outpatient (BNV) | payer MEDICAID, SELFPAY | PROVIDERS: Admitting Provider Hospitalist; Emergency Provider Emergency Medicine; Visit Provider Internal Medicine Gastroenterology | DX: K62.5 Hemorrhage of anus and rectum (principal); K64.0 First degree hemorrhoids; R11.0 Nausea; K29.60 Other gastritis without bleeding | CPT/HCPCS: 43239; 45380; 99223; 99232 ==

== ENCOUNTER → 2024-02-20 15:52 | Outpatient (BNV) | payer MEDICAID, SELFPAY | PROVIDERS: Admitting Provider Hospitalist; Emergency Provider Emergency Medicine; Visit Provider Hospitalist | DX: K62.5 Hemorrhage of anus and rectum (principal); K64.8 Other hemorrhoids | CPT/HCPCS: 99223; 99233; 99239 ==

== ENCOUNTER → 2024-03-08 08:33 | Outpatient (REF) | payer MEDICAID, SELFPAY ==
--- NOTE | ~2024-03-08 | NM_ITS ---
Myocardial perfusion study Indication: Abnormal EKG to evaluate for myocardial ischemia Technique: The patient was brought in for a Lexiscan perfusion study on 03/08/2024. Patient performed low-level exercise and was injected 0.4 mg of Lexiscan intravenously. Within a minute of injection, 30 mCi of sestamibi was given intravenously. Images were obtained using the SPECT gamma camera interlaced with the gating device. Images were obtained in supine position. Resting perfusion study was performed on 03/09/2024. Patient was administered 30 mCi of sestamibi intravenously at rest. Images were then obtained in supine position. Images obtained with and without CT attenuation. Total DLP 118 mGy-cm. Images were processed with the software and compared side to side in short axis, horizontal long axis and vertical long axis views. Findings: Both stress and rest perfusion studies were suboptimal due to intense subdiaphragmatic uptake interfering with inferior as well as inferolateral wall uptake and affecting overall myocardial counts The stress perfusion study showed an attenuated images show diffusely reduced uptake in all segments of LV myocardium with inferior wall not interpretable. Attenuated corrected images also show diffusely reduced uptake with inferior wall on intervertebral.. The gated study shows normal LV systolic function with visually estimated LVEF of greater than 60%. LV cavity is normal in size. The gated study shows normal systolic wall thickening and contraction of segments. Resting study shows no change in perfusion pattern compared to stress perfusion study. Gating at rest reveals normal systolic wall motion with ejection fraction at 63%. The findings are consistent with uninterpretable study due to intense subdiaphragmatic uptake. NM/NM cardiolite stress test Impression: 1. Myocardial perfusion imaging study shows nondiagnostic study 2. Gated LVEF is 63% 3. Transient ischemic dilatation not present EKG is nondiagnostic for ischemia
--- NOTE | 2024-03-08 08:36 | CA_ITS ---
Acquisition Time: 2024-03-08 08:48:43 Total Exercise Time: 00:02:00 Test Indications: PRECORDIAL PAIN. ABN.EKG Medications: Protocol: LEXISCAN Max HR: 109 BPM 63% of Pred: 173 BPM Max BP: 114/060 mmHG Max Work Load: 1.0 METS Pharmacological stress test with Lexiscan injection whle sitting and kicking her legs, without anginal symptoms, without arrhythmias, with normotesnive response to injection, with nondiagnostic EKGs. Aminophylline 75mg IVP given to reverse Lexiscan. Nuclear images pending. Test reviewed with Dr. Felton Referred By: More Liz Overread By: Karin Mondragon
== END ==
LOC: HO.CARD 08:33
PROVIDERS: PCP General Practice; Visit Provider Nurse Practitioner Family
DX: R07.2 Precordial pain (principal); R94.31 Abnormal electrocardiogram [ECG] [EKG]; Z92.21 Personal history of antineoplastic chemotherapy
CPT/HCPCS: 78452; 93017; A9500; J0280; J2785

== ENCOUNTER → 2024-03-08 08:36 | Outpatient (BNV) | payer MEDICAID, SELFPAY | PROVIDERS: PCP General Practice; Visit Provider Nurse Practitioner | DX: R94.31 Abnormal electrocardiogram [ECG] [EKG] (principal) | CPT/HCPCS: 78452; 93016; 93018 ==

== ENCOUNTER 2024-03-13 08:28 | Outpatient (REF) | payer MEDICAID, SELFPAY ==
[2024-03-13 10:51] LABS: MANUAL DIFF FLAG NO
[2024-03-13 11:01] LABS: Basophils Percent Auto 0.3 % (0-2); Eosinophils Absolute Auto 0.1 X10*3/uL (0.0-0.4); Eosinophils Percent Auto 1.8 % (0-4); Hematocrit 35.6 % (37.0-47.0); Hemoglobin 11.4 g/dl (12.0-16.0); Imm Gran Abs Auto 0.02 X10*3/uL (0.00-0.03); Imm Gran Pct Auto 0.3 % (0.0-0.4); Lymphocytes Absolute Auto 1.9 X10*3/uL (1.2-4.9); Lymphocytes Percent Auto 30.8 % (20-40); Mean Corpuscular Hemoglobin 30.9 pg (27.0-33.0); Mean Corpuscular Volume 96.5 fL (80.0-98.0); Mean Platelet Volume 9.8 fL (9.4-12.3); Monocytes Absolute Auto 0.4 X10*3/uL (0.1-1.2); Monocytes Percent Auto 6.3 % (2-11); Neutrophils Absolute Auto 3.6 x10*3/uL (2.0-8.3); Neutrophils Percent Auto 60.5 % (45-73); Platelet Count 346 X10*3/uL (160-400); Red Blood Count 3.69 X10*6/uL (4.20-5.50); Red Cell Distribution Width 14.9 % (11.0-16.0)
[2024-03-13 11:22] LABS: Alanine Aminotransferase 12 U/L (0-31); Alkaline Phosphatase 72 U/L (39-117); Anion Gap 10 (12-20); Aspartate Amino Transferase 14 U/L (5-31); Bilirubin Total 0.2 mg/dL (0.0-1.0); Blood Urea Nitrogen 19 mg/dL (9-16); C Reactive Protein 1.48 mg/dL (< or = 0.50); Calcium 9.3 mg/dL (8.4-10.2); Carbon Dioxide 27 mmol/L (22-29); Chloride 106 mmol/L (96-108); Estimated Glomerular Filt Rate > 60; Glucose Random 94 mg/dL (60-115); Potassium 4.2 mmol/L (3.3-5.1); Sodium 139 mmol/L (135-145); Total Protein 8.6 g/dL (6.5-8.0)
[2024-03-13 11:48] LABS: Erythrocyte Sedimentation Rate 77 MM/HR (0-20)
== END 2024-03-13 08:29 | disposition home or self-care (01) ==
LOC: HO.10HDL 08:28
PROVIDERS: Visit Provider Student in an Organized Health Care Education/Training Program
DX: M05.9 Rheumatoid arthritis with rheumatoid factor, unspecified (principal); Z79.899 Other long term (current) drug therapy
CPT/HCPCS: 36415; 80053; 85025; 85652; 86140

== ENCOUNTER 2024-03-22 08:54 | Outpatient (AMB) | payer MEDICAID, SELFPAY ==
--- NOTE | 2024-03-22 08:57 | MHC.OFFVIS ---
Vital Signs 03/22/24 08:58 Height 5 ft 3 in Weight 199 lb 4.766 oz BMI 35.3 BP 108/72 Blood Pressure Location Lt brachial Position Sitting Pulse 80 Pulse Source Pulse Oximeter Intake Visit Reasons: f/u after testing Parking Meter Installer Required: Yes Parking Meter Installer Language: Vb Net Programmer Name: arlene skelton [id number] Allergies almond [ALMONDS] Allergy (Severe, Verified 03/22/24 09:01) ANAPHYLAXIS adhesive tape [ADHESIVE TAPE] Allergy (Intermediate, Verified 03/22/24 09:01) RASH morphine [MORPHINE] Allergy (Intermediate, Verified 03/22/24 09:01) GI UPSET, difficulty breathing tramadol [TRAMADOL] Adverse Reaction (Unknown, Verified 03/22/24 09:01) NAUSEA & VOMITING Medication List - Last Reconciled 03/22/24 by GENNA Espinoza albuterol sulfate 90 mcg/actuation 2 puffs inhalation Q6H PRN alprazolam 1 mg PO BEDTIME PRN apixaban (Eliquis) 5 mg PO BID ascorbic acid (vitamin C) (Vitamin C) 1,000 mg PO DAILY baricitinib (Olumiant) mg PO chlorhexidine gluconate 0.12% 15 mL PO DAILY PRN cilostazol 100 mg PO BID docusate sodium 100 mg PO BEDTIME PRN ferrous sulfate (FeroSul) 1 tab PO DAILY folic acid 1 mg PO DAILY PRN leflunomide 10 mg PO DAILY nicotine 1 patch transdermal DAILY oxycodone-acetaminophen 10-325 mg 1 tab PO Q8H PRN pantoprazole 40 mg PO DAILY sertraline (Zoloft) 75 mg PO DAILY ursodiol 500 mg PO BID vitamin A 1 cap PO DAILY HPI HPI f/u after testing: Details: Ginette is a 48-year-old female with past medical history of fibromyalgia, rheumatoid arthritis, SLE, non-Hodgkin's lymphoma 2004, smoking, PAD, DVT and on Eliquis, who was recently seen in the emergency room a few months ago for chest discomfort. She ruled out for ACS. Her EKG did show incomplete right bundle branch block and left anterior fascicular block. She was referred to Cardiology in follow-up. On last visit an echocardiogram and nuclear stress test were ordered and she now presents for follow-up. Today she she has periodic discomfort in her left chest region that goes her left neck to the side of her head. The prior scapular area discomfort has improved some. She has a known history of rheumatoid arthritis and has joint pains all over her body. She denies shortness of breath at rest or with activity. She is mostly sedentary and ambulates with a cane or a walker depending on where she is. No PND, orthopnea or ankle edema. No lightheadedness, presyncope, syncope, recent falls. She takes her meds as directed. She smokes 3 cigarettes a day which is a reduction down from 1 pack per day. [facility] Medical History Skin lesion Anxiety Achilles tendinitis Superficial femoral artery occlusion Knee pain, left Depression Hx of peripheral pulmonary artery stenosis PAD (peripheral artery disease) History of chemotherapy Cancer of heart Bone cancer Lung cancer Seropositive rheumatoid arthritis Bleeding hemorrhoid Degeneration, intervertebral disc, lumbar Chronic GERD Degeneration of intervertebral disc at C4-C5 level Osteoarthritis of spine with radiculopathy, lumbar region Fibromyalgia Esophageal dysphagia Vitamin D deficiency Systemic lupus erythematosus Seropositive rheumatoid arthritis Rheumatoid arthritis involving multiple sites Gallstones Stress incontinence in female Nocturia Urgency-frequency syndrome De Quervain's disease (tenosynovitis) Depressive disorder Acute arthritis Hodgkin disease Surgical History History of surgical removal of skin lesion (~07/13/23) History of angioplasty of vein History of biopsy H/O tubal ligation Hx of endoscopy Hx laparoscopic cholecystectomy Hx of colonoscopy History of esophagogastroduodenoscopy (EGD) History of repair of inguinal hernia History of lymph node dissection of left axilla Family History Maternal Grandmother Ovarian cancer Social History Household Members: Spouse Housing: Apartment Are you a primary direct care provider to a significant other at home: No Alcohol intake: never Comment: son at bedside Patient Tobacco Use Status: Current everyday Tobacco user Tobacco use type: Cigarette Cigarette Packs Per Day: 1 Cigarettes Per Day: 20.0 Substance Use Type: Marijuana Advance Directives Date on File: 09/23/20 service: No Current occupational status: disabled 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 of Systems Const All systems reviewed & are unremarkable except as noted in HPI and below ENT Denies dizziness Card Denies chest pain, Denies chest pain at rest, Denies chest pain with activity, Denies rapid heart rate, Denies pedal edema, Denies edema, Denies leg edema, Denies lightheadedness, Denies palpitations, Denies dyspnea, Denies dyspnea on exertion and Denies orthopnea Resp Denies cough, Denies dyspnea and Denies dyspnea on exertion GI Denies hematochezia and Denies change in stool character Musc Reports abnormal gait, Reports limited range of motion, Denies muscle cramps, Denies muscle weakness, Denies numbness, Denies radiating pain into limb, Denies stiffness and Denies tingling Neuro Reports abnormal gait, Denies dizziness, Denies numbness and Denies tingling Endo Denies palpitations Physical Exam Vital Signs: BMI result Body Mass Index 35.3 Const Other: ambulates slow with cane. General: cooperative and no acute distress; No comfortable Orientation/consciousness: patient oriented x3 Neck Neck: Yes normal visual inspection and Yes no JVD Resp Effort & Inspection: normal respiratory effort Auscultation: clear to auscultation bilaterally, no crackles, no rales, no rhonchi and no wheezes Cardio Jugular venous distension: no JVD Rate: regular rate Rhythm: regular rhythm Heart sounds: S1 normal heart sound present, S2 normal heart sound present, no murmurs and no rubs Neuro General: patient oriented x3 Extrem General: Yes normal to inspection Psych Appearance: grossly normal Mental Status: mental status grossly normal Speech and movement: Normal speech and movement present Assessment & Plan Assessment & Plan (1) Chest pain, precordial: Code(s): R07.2 - Precordial pain Category: Medical Plan: Atypical left-sided chest discomfort. ER evaluation last spring and ruled out for ACS. Her EKG does show incomplete right bundle branch block and left anterior fascicular block. She has no known history of heart disease. She does have reported heart disease in her family. Cardiac risk factors of rheumatoid arthritis, sedentary, smoking, PAD. Echocardiogram was done on 11/2023 showing EF 55-60%, basal inferior akinetic, mild MR and mild TR. A pharmacological nuclear stress test was done on 03/09/2024 which was nondiagnostic, EF 63%. Today she reports ongoing issues with atypical chest discomfort. With her multiple cardiac risk factors and nondiagnostic stress test will further pursue evaluation for obstructive CAD with a CTA of the coronary arteries. This was discussed with her and she is agreeable to proceed. No contrast dye allergy, labs 03/13/2024 showed creatinine 0.77. Signs and symptoms of angina reviewed with her. Emergency care if ever needed for symptoms. Cardiology follow-up 3 months, sooner if needed. (2) Abnormal echocardiogram findings without diagnosis: Code(s): R93.1 - Abnormal findings on diagnostic imaging of heart and coronary circulation Category: Medical Plan: Wall motion abnormality noted on echocardiogram. Checking a CTA of the coronary arteries. (3) Polyarthropathy: Code(s): M13.0 - Polyarthritis, unspecified Category: Medical Plan: Related to rheumatoid arthritis. Could be contributing to her atypical chest discomfort. Cardiac evaluation as above. (4) PAD (peripheral artery disease): Comment: 04/21/2022 - diagnostic angiogram - left common iliac occlusion[facility] - right SFA angioplasty and stent via radial approach Code(s): I73.9 - Peripheral vascular disease, unspecified Category: Medical Plan: Record indicates history of left SFA stenosis with angioplasty and stent. She is mostly sedentary. She has joint pains without clear claudication. She is on aspirin and statin. She follows with Dr. Hughes. (5) Fibromyalgia: Code(s): M79.7 - Fibromyalgia Category: Medical Plan: As above (6) Abnormal EKG: Code(s): R94.31 - Abnormal electrocardiogram [ECG] [EKG] Category: Medical Plan: As above. Plan Time spent on chart review, documentation, interview and assessment Orders: Orders CT Cardiac Coronary Angio Today R07.2 - Precordial pain, R93.1 - Abnormal findings on diagnostic imaging of heart and coronary circulation, R94.31 - Abnormal electrocardiogram [ECG] [EKG] Basic Metabolic Panel Today R07.2 - Precordial pain Coding Level of Care Code Est Pt Level 3 (49335) Diagnoses Chest pain, precordial R07.2 Abnormal echocardiogram findings without diagnosis R93.1 Polyarthropathy M13.0 PAD (peripheral artery disease) I73.9 Fibromyalgia M79.7 Abnormal EKG R94.31 Time Spent (min) 24
[2024-03-22 08:58] VITALS: BP 108/72; PULSE 80; BMI 35.3
== END 2024-03-22 09:23 | disposition home or self-care (01) ==
PROVIDERS: PCP General Practice; Visit Provider Nurse Practitioner Family
DX: R07.2 Precordial pain (principal); R93.1 Abnormal findings on diagnostic imaging of heart and coronary circulation; M13.0 Polyarthritis, unspecified; I73.9 Peripheral vascular disease, unspecified; M79.7 Fibromyalgia; R94.31 Abnormal electrocardiogram [ECG] [EKG]
CPT/HCPCS: 99213

== ENCOUNTER → 2024-03-22 08:54 | Outpatient (BNVA) | payer MEDICAID, SELFPAY | PROVIDERS: PCP General Practice; Visit Provider Nurse Practitioner Family | DX: I73.9 Peripheral vascular disease, unspecified (principal); R07.2 Precordial pain; R93.1 Abnormal findings on diagnostic imaging of heart and coronary circulation; R94.31 Abnormal electrocardiogram [ECG] [EKG]; Z87.891 Personal history of nicotine dependence; Z86.718 Personal history of other venous thrombosis and embolism; Z79.01 Long term (current) use of anticoagulants | CPT/HCPCS: 99212 ==

== ENCOUNTER 2024-04-11 10:16 | Outpatient (REF) | payer MEDICAID, SELFPAY ==
[2024-04-11 11:58] LABS: HIV AB/AG Nonreactive (Nonreactive); HIV Num 1 0.16 S/CO (0.00-0.99); ~HepC Num1 0.42 S/CO (0.00-0.79); ~Hepatitis C Antibody Nonreactive (Nonreactive)
[2024-04-11 12:16] LABS: Erythrocyte Sedimentation Rate 92 MM/HR (0-20)
[2024-04-11 12:25] LABS: Alanine Aminotransferase 15 U/L (0-31); Albumin Level 3.9 g/dL (3.5-5.0); Alkaline Phosphatase 85 U/L (39-117); Anion Gap 14 (12-20); Aspartate Amino Transferase 18 U/L (5-31); Bilirubin Total 0.3 mg/dL (0.0-1.0); Blood Urea Nitrogen 13 mg/dL (9-16); C Reactive Protein 3.45 mg/dL (< or = 0.50); Calcium 9.6 mg/dL (8.4-10.2); Carbon Dioxide 23 mmol/L (22-29); Chloride 106 mmol/L (96-108); Estimated Glomerular Filt Rate > 60; Glucose Random 85 mg/dL (60-115); Potassium 3.7 mmol/L (3.3-5.1); Sodium 139 mmol/L (135-145); Total Protein 8.5 g/dL (6.5-8.0)
[2024-04-11 12:50] LABS: Lactate Dehydrogenase 149 U/L (122-220)
[2024-04-11 18:38] LABS: Basophils Percent Auto 0.6 % (0-2); Eosinophils Absolute Auto 0.1 X10*3/uL (0.0-0.4); Eosinophils Percent Auto 1.5 % (0-4); Hematocrit 32.5 % (37.0-47.0); Hemoglobin 11.1 g/dl (12.0-16.0); Imm Gran Abs Auto 0.04 X10*3/uL (0.00-0.03); Imm Gran Pct Auto 0.7 % (0.0-0.4); Lymphocytes Absolute Auto 1.6 X10*3/uL (1.2-4.9); Lymphocytes Percent Auto 28.9 % (20-40); MANUAL DIFF FLAG NO; Mean Corpuscular HGB Conc 34.2 g/dl (31.0-35.0); Mean Corpuscular Hemoglobin 31.4 pg (27.0-33.0); Mean Corpuscular Volume 91.8 fL (80.0-98.0); Mean Platelet Volume 10.4 fL (9.4-12.3); Monocytes Absolute Auto 0.4 X10*3/uL (0.1-1.2); Monocytes Percent Auto 7.4 % (2-11); Neutrophils Absolute Auto 3.3 x10*3/uL (2.0-8.3); Neutrophils Percent Auto 60.9 % (45-73); Platelet Count 309 X10*3/uL (160-400); Red Blood Count 3.54 X10*6/uL (4.20-5.50); Red Cell Distribution Width 14.6 % (11.0-16.0); White Blood Count 5.4 X10*3/uL (4.8-10.8)
== END 2024-04-11 10:17 | disposition home or self-care (01) ==
LOC: HO.HHCL 10:16
PROVIDERS: Student in an Organized Health Care Education/Training Program; Referring Provider General Practice; Visit Provider Internal Medicine Medical Oncology
DX: Z00.01 Encounter for general adult medical examination with abnormal findings (principal); C81.90 Hodgkin lymphoma, unspecified, unspecified site; M06.9 Rheumatoid arthritis, unspecified; R10.13 Epigastric pain; Z79.899 Other long term (current) drug therapy; M05.9 Rheumatoid arthritis with rheumatoid factor, unspecified
CPT/HCPCS: 36415; 80053; 83615; 85025; 85652; 86140; 86431; 86803; 87338; 87389

== ENCOUNTER 2024-04-12 08:48 | Outpatient (AMB) | payer MEDICAID, SELFPAY ==
--- NOTE | 2024-04-12 08:54 | A.OFFVIS_ITS ---
Vital Signs 04/12/24 08:59 Height 5 ft 3 in Weight 199 lb BMI 35.2 Intake Visit Reasons: OV - Left Femoral Head AVN Intake Note: Ginette is a 48 year old female who presents today for a follow up of her left femoral head avascular necrosis. She was recently seen with Dr. Drew for her right knee, he has ordered an MRI to evaluate integrity of medial meniscus - Patient no showed MRI Allergies almond [ALMONDS] Allergy (Severe, Verified 03/22/24 09:01) ANAPHYLAXIS adhesive tape [ADHESIVE TAPE] Allergy (Intermediate, Verified 03/22/24 09:) RASH morphine [MORPHINE] Allergy (Intermediate, Verified 03/22/24 09:01) GI UPSET, difficulty breathing tramadol [TRAMADOL] Adverse Reaction (Unknown, Verified 03/22/24 09:) NAUSEA & VOMITING HPI HPI OV - Left Femoral Head AVN: Details: Ginette is a 48 year old female who presents today for a follow up of her left femoral head avascular necrosis. She was recently seen with Dr. Drew for her right knee, he has ordered an MRI to evaluate integrity of medial meniscus - Patient no showed MRI She has lupus and a history of blood clots and has very poor mobility and is being seen with rheumatology. This really is her primary issue at this point. She does have knee pain and hip pain but it has not progressed significantly since I last saw her. [facility] Medical History Skin lesion Anxiety Achilles tendinitis Superficial femoral artery occlusion Knee pain, left Depression Hx of peripheral pulmonary artery stenosis PAD (peripheral artery disease) History of chemotherapy Cancer of heart Bone cancer Lung cancer Seropositive rheumatoid arthritis Bleeding hemorrhoid Degeneration, intervertebral disc, lumbar Chronic GERD Degeneration of intervertebral disc at C4-C5 level Osteoarthritis of spine with radiculopathy, lumbar region Fibromyalgia Esophageal dysphagia Vitamin D deficiency Systemic lupus erythematosus Seropositive rheumatoid arthritis Rheumatoid arthritis involving multiple sites Gallstones Stress incontinence in female Nocturia Urgency-frequency syndrome De Quervain's disease (tenosynovitis) Depressive disorder Acute arthritis Hodgkin disease Surgical History History of surgical removal of skin lesion (~07/13/23) History of angioplasty of vein History of biopsy H/O tubal ligation Hx of endoscopy Hx laparoscopic cholecystectomy Hx of colonoscopy History of esophagogastroduodenoscopy (EGD) History of repair of inguinal hernia History of lymph node dissection of left axilla Family History Maternal Grandmother Ovarian cancer Social History Household Members: Spouse Housing: Apartment Are you a primary health and social care teacher to a significant other at home: No Alcohol intake: never Comment: son at bedside Patient Tobacco Use Status: Current everyday Tobacco user Tobacco use type: Cigarette Cigarette Packs Per Day: 1 Cigarettes Per Day: 20.0 Substance Use Type: Marijuana Advance Directives Date on File: 09/23/20 service: No Current occupational status: disabled 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 She has difficulty lifting her legs to ambulate comfortably. She has bilateral knee pain when she does so. Her hips hurt more laterally than anteriorly. On range of motion of her hips passive range of motion is intact with minimal pain. Assessment & Plan Assessment & Plan (1) Avascular necrosis of left femoral head: Code(s): M87.052 - Idiopathic aseptic necrosis of left femur Category: Medical Plan: Her hip pain has not changed much in her range of motion is good. I think this is really not her primary pain generator at this point and even if she had complete collapse surgical goal risks are extremely high given her lupus and both lower and upper extremity blood clotting history. She is seeing Rheumatology today continuing to work on medical management of her lupus. I think this is the best course of action. I would follow up in 3 months for x- ray of her hips. (2) Deep vein thrombophlebitis of right leg: Comment: 12/2021:acute partial DVT right proximal and distal posterior tibial vein. 2019: Anti cardiolipin antibody, anti beta 2 glycoprotein antibody, and lupus anticoagulant all negative Code(s): I80.201 - Phlebitis and thrombophlebitis of unspecified deep vessels of right lower extremity Category: Medical Plan: (3) Systemic lupus erythematosus: Comment: January 2022: ++DsDNA positive. Rheumatoid factor and CCP antibody markedly positive. This looks more like picture of seropositive RA. Code(s): M32.9 - Systemic lupus erythematosus, unspecified Category: Medical Qualifiers: Systemic lupus erythematosus type: unspecified Systemic lupus erythematosus organ involvement: unspecified Qualified Code(s): M32.9 - Systemic lupus erythematosus, unspecified Plan: Coding Level of Care Code Est Pt Level 3 (21302) Complex EM visit Add On G2211 Diagnoses Avascular necrosis of left femoral head M87.052 Deep vein thrombophlebitis of right leg I80.201 Systemic lupus erythematosus, unspecified SLE type, unspecified organ involvement status M32.9 Systemic lupus erythematosus type: unspecified Systemic lupus erythematosus organ involvement: unspecified
[2024-04-12 08:59] VITALS: BMI 35.2
== END 2024-04-12 09:17 | disposition home or self-care (01) ==
PROVIDERS: PCP General Practice; Visit Provider Orthopaedic Surgery
DX: M87.052 Idiopathic aseptic necrosis of left femur (principal); I80.201 Phlebitis and thrombophlebitis of unspecified deep vessels of right lower extremity; M32.9 Systemic lupus erythematosus, unspecified
CPT/HCPCS: 99213

== ENCOUNTER → 2024-04-12 08:48 | Outpatient (BNVA) | payer MEDICAID, SELFPAY | PROVIDERS: PCP General Practice; Visit Provider Orthopaedic Surgery | DX: M87.052 Idiopathic aseptic necrosis of left femur (principal); I80.201 Phlebitis and thrombophlebitis of unspecified deep vessels of right lower extremity; M32.9 Systemic lupus erythematosus, unspecified; M79.7 Fibromyalgia | CPT/HCPCS: 99212 ==

== ENCOUNTER 2024-04-13 08:44 | Emergency (ER) | payer MEDICAID, SELFPAY ==
--- NOTE | ~2024-04-13 | XR_ITS ---
EXAMINATION: XR CHEST CLINICAL INFORMATION: Left-sided chest pain. COMPARISON: Chest radiograph 12/02/2023. TECHNIQUE: 2 views of the chest were obtained. FINDINGS: Normal appearance of the cardiomediastinal silhouette. No focal consolidation, pleural effusion or pneumothorax. No acute osseous findings. Surgical clips overlying the right axillary region. XR/XR chest 2V IMPRESSION: No acute cardiopulmonary findings. Electronically signed by: Ginger Montiel MD 04/13/2024 09:36 AM EDT
--- NOTE | 2024-04-13 08:53 | ECG_ITS ---
Test Reason : CHEST PAIN Blood Pressure : / mmHG Vent. Rate : 102 BPM Atrial Rate : 102 BPM P-R Int : 156 ms QRS Dur : 094 ms QT Int : 348 ms P-R-T Axes : 065 -50 077 degrees QTc Int : 453 ms Sinus tachycardia Left anterior fascicular block Left ventricular hypertrophy with repolarization abnormality ( R in aVL , Remy product ) Abnormal ECG When compared with ECG of 02-DEC-2023 11:10, Vent. rate has increased BY 38 BPM Incomplete right bundle branch block is no longer Present Referred By: Generic ED Physician Electronically Signed By:MARITZA GUAMAN
[2024-04-13 08:59] VITALS: BP 106/68; PULSE 105; RESP 18; TEMP 37.2; O2SAT 97; BMI 27.4
--- NOTE | 2024-04-13 09:08 | ED.CHESTPAIN ---
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 She denies n/v cough dyspnea or rash. She denies new trauma or change in medications. She states it hurts when you touch the area or move the arm. She reports she took her medications this AM. She states she has no known injuries to the area. Compliant with her randal VITALE complaint: chest pain (L arm pain) Onset (ago): day(s) (last night) Timing of current episode: constant Prior episodes: No Onset: during rest Pain location: left chest Pain radiation: left arm and back Severity: moderate Quality: aching Relieving factors: rest Exacerbating factors: palpation and movement Treatment prior to arrival: none Related Data Home Medications ?Medication ?Instructions ?Recorded ?Confirmed ferrous sulfate 325 mg (65 mg 1 tab PO DAILY 10/02/21 03/22/24 iron) tablet (FeroSul) apixaban 5 mg tablet (Eliquis) 5 mg PO BID 09/22/22 03/22/24 alprazolam 1 mg tablet 1 mg PO BEDTIME PRN Anxiety 12/10/22 03/22/24 chlorhexidine gluconate 0.12 % 15 ml PO DAILY PRN Bacteria 10/25/23 03/22/24 mouthwash oxycodone-acetaminophen 10 mg-325 1 tab PO Q8H PRN severe pain 12/14/23 03/22/24 mg tablet albuterol sulfate 90 mcg/actuation 2 puff inhalation Q6H PRN Wheezing 02/20/24 03/22/24 aerosol inhaler ascorbic acid (vitamin C) 500 mg 1,000 mg PO DAILY 02/20/24 03/22/24 tablet (Vitamin C) cilostazol 100 mg tablet 100 mg PO BID 02/20/24 03/22/24 docusate sodium 100 mg capsule 100 mg PO BEDTIME PRN Constipation 02/20/24 03/22/24 folic acid 1 mg tablet 1 mg PO DAILY PRN Folic Acid Levels 02/20/24 03/22/24 nicotine 21 mg/24 hr daily 1 patch transdermal DAILY 02/20/24 03/22/24 transdermal patch vitamin A 3,000 mcg (10,000 unit) 1 cap PO DAILY 02/20/24 03/22/24 capsule baricitinib 2 mg tablet (Olumiant) mg PO 03/22/24 03/22/24 sertraline 50 mg tablet (Zoloft) 75 mg PO DAILY 03/22/24 03/22/24 Previous Rx's ?Medication ?Instructions ?Recorded pantoprazole 40 mg tablet,delayed 40 mg PO DAILY #90 tabs 11/04/23 release ursodiol 500 mg tablet 500 mg PO BID #60 tabs 02/29/24 leflunomide 20 mg tablet 20 mg PO DAILY #30 tabs 04/10/24 Allergies Allergy/AdvReac Type Severity Reaction Status Date / Time almond [ALMONDS] Allergy Severe ANAPHYLAXIS Verified 04/13/24 09:02 adhesive tape [ADHESIVE TAPE] Allergy Intermediate RASH Verified 04/13/24 09:02 morphine [MORPHINE] Allergy Intermediate GI UPSET, Verified 04/13/24 09:02 difficulty breathing tramadol [TRAMADOL] AdvReac Unknown NAUSEA & Verified 04/13/24 09:02 VOMITING Review of Systems Review of Systems: Constitutional : No Weight loss, No Fever, No Chills ENT/Mouth : No sore throat, No Rhinorrhea Eyes: No Eye Pain, No Swelling Cardiovascular : pos Chest Pain, no SOB, no Dyspnea on Exertion, No Orthopnea, No Edema, No Palpitations Respiratory : No Cough, No Sputum Gastrointestinal : no Nausea, No Vomiting, No Diarrhea, No abdominal Pain, No Hematochezia, No Melena Genitourinary : No Dysuria, No Urinary Frequency Musculoskeletal : No joint pain, No Myalgias, No Joint Swelling Skin : No Skin Lesions, No rash Neuro : No Weakness, No Numbness, No Dizziness, No Headache Psych : No Anxiety/Panic, No Depression All other systems reviewed and are negative [facility] Past Medical History Attestation statement: The following information was validated with the patient. Source: old records reviewed Medical History Skin lesion Anxiety Achilles tendinitis Superficial femoral artery occlusion Knee pain, left Depression Hx of peripheral pulmonary artery stenosis PAD (peripheral artery disease) History of chemotherapy Cancer of heart Bone cancer Lung cancer Seropositive rheumatoid arthritis Bleeding hemorrhoid Degeneration, intervertebral disc, lumbar Chronic GERD Degeneration of intervertebral disc at C4-C5 level Osteoarthritis of spine with radiculopathy, lumbar region Fibromyalgia Esophageal dysphagia Vitamin D deficiency Systemic lupus erythematosus Seropositive rheumatoid arthritis Rheumatoid arthritis involving multiple sites Gallstones Stress incontinence in female Nocturia Urgency-frequency syndrome De Quervain's disease (tenosynovitis) Depressive disorder Acute arthritis Hodgkin disease Surgical History History of surgical removal of skin lesion (~07/13/23) History of angioplasty of vein History of biopsy H/O tubal ligation Hx of endoscopy Hx laparoscopic cholecystectomy Hx of colonoscopy History of esophagogastroduodenoscopy (EGD) History of repair of inguinal hernia History of lymph node dissection of left axilla Family History Family History Maternal Grandmother Ovarian cancer Social History Social History Household Members: Spouse Housing: Apartment Are you a primary health care liaison to a significant other at home: No Alcohol intake: never Comment: son at bedside Patient Tobacco Use Status: Current everyday Tobacco user Tobacco use type: Cigarette Cigarette Packs Per Day: 1 Cigarettes Per Day: 20.0 Substance Use Type: Marijuana Advance Directives: Yes Advance Directives on File: Yes Advance Directives Date on File: 02/24/24 service: No Current occupational status: disabled 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 Oriented X3. No acute distress. Eyes: Pupils equal, round and reactive to light. ENT: Pharynx normal. Neck: Normal inspection. Neck supple. CVS: Normal heart rate and rhythm. Pulses normal. Chest: ttp along L chest wall, L arm, L back pain with movements of L arm pulse intact, no swelling, no rash noted, SILT intact Respiratory: No respiratory distress. Breath sounds normal. Abdomen: Soft and nontender. Skin: Skin warm and dry. Normal skin color. Normal skin turgor. Extremities: No lower extremity edema. No calf ttp Neuro: Oriented X 3. No motor deficit. No sensory deficit. Medications Administered Discontinued Medications Generic Name Dose Route Start Last Admin Trade Name Oscarq PRN Reason Stop Dose Admin Oxycodone HCl 10 mg 04/13/24 09:23 04/13/24 09:40 Oxycodone Hcl Immed Release 5 Mg Tablet PO 04/13/24 09:24 10 mg ONCE ONE Administration Medical Decision Making Medical Decision Making [facility] Narrative: 48 yo female with PMH of anemia, PAD, fibromyalgia, lupus, RA, HARINI, DVT on eliquis, opiate dependence here with c/o reproduceable CWP, L arm pain, L back pain she is compliant with her eliquis and pain is not pleuritic. She has no associated pain such as dyspnea, cough, n/v it is all pain with ROM or palpation which is atypical and more suspicious for MSK pain. She has normal pulses, no swelling, no rash or signs of infection. At this time labs, CXR, PO pain control, EKG troponin x 1. Differential Diagnosis Differential Diagnoses: The differential diagnosis associated with the presentation includes MSK pain, strain, lupus Admission/Observation Consideration of admission/observation: Escalation of care including admission/observation considered work up negative compliant with eliquis doubt VTE trop negative EKG negative CXR negative stable for DC Lab Data [facility] Lab Attestation statement: I reviewed the patient's lab results. 04/13/24 09:02 04/13/24 09:02 Labs: Lab Results 04/13/24 Range/Units 09:02 WBC 7.7 (4.8-10.8) X10*3/uL RBC 3.64 L (4.20-5.50) X10*6/uL Hgb 11.2 L (12.0-16.0) g/dl Hct 33.9 L (37.0-47.0) % MCV 93.1 (80.0-98.0) fL MCH 30.8 (27.0-33.0) pg MCHC 33.0 (31.0-35.0) g/dl RDW 14.6 (11.0-16.0) % Plt Count 305 (160-400) X10*3/uL MPV 9.9 (9.4-12.3) fL Immature Gran % (Auto) 0.3 (0.0-0.4) % Neut % (Auto) 74.1 H (45-73) % Lymph % (Auto) 18.0 L (20-40) % Ponce % (Auto) 6.4 (2-11) % Eos % (Auto) 0.9 (0-4) % Baso % (Auto) 0.3 (0-2) % Lymph # (Auto) 1.4 (1.2-4.9) X10*3/uL Ponce # (Auto) 0.5 (0.1-1.2) X10*3/uL Eos # (Auto) 0.1 (0.0-0.4) X10*3/uL Baso # (Auto) 0.0 (0.0-0.2) X10*3/uL Abs Immat Gran (auto) 0.02 (0.00-0.03) X10*3/uL Absolute Neuts (auto) 5.7 (2.0-8.3) x10*3/uL Absolute Nucleated RBC 0.000 (0.0-0.012) X10*3/uL Nucleated RBC % (auto) 0.0 (0.0-0.2) /100WBC Sodium 137 (135-145) mmol/L Potassium 4.1 (3.3-5.1) mmol/L Chloride 105 (96-108) mmol/L Carbon Dioxide 22 (22-29) mmol/L Anion Gap 14 (12-20) BUN 11 (9-16) mg/dL Creatinine 0.76 (0.5-1.4) mg/dL Estim Creat Clear Calc 95.9 Estimated GFR > 60 Random Glucose 100 (60-115) mg/dL Calcium 10.1 (8.4-10.2) mg/dL Troponin I High Sens < 2.7 (<3.5-17.0) ng/L Influenza Type A (PCR) NEGATIVE (Negative) Influenza Type B (PCR) NEGATIVE (Negative) RSV RNA Qual (PCR) NEGATIVE (Negative) SARS-CoV-2 RNA (RT-PCR) NEGATIVE (Negative) Independent Interpretation I performed an independent interpretation of an: EKG and Plain X-Ray (normal) Interpretation: Rate: 102 Rhythm: sinus tachycardia [place]: left, LVH Normal P waves. Normal JAMES. Normal QRS complex. ST T wave : inverted t waves I and aVL, no JHON qTC: 453 prior studies: similar to priors The study has been interpreted contemporaneously by me. . Radiology Impression Discussion of test interpretation with radiology: I have reviewed the radiologist's reading. External Record Review External record reviewed: Inpatient record Discharge Plan Discharge Clinical Impression: Acute chest wall pain Patient Disposition: Home, Self-Care Instructions: Chest Pain (ED) Additional Instructions: labs normal EKG reassuring Chest xray reassuring continue all of your medications follow up with your doctor COVID NEGATIVE Call to establish and follow up with a primary care provider. If you already have a primary care provider, please follow up with them. Llame para establecer y hacer un seguimiento con un proveedor de atenci?n primaria. Si ya tiene un proveedor de atenci?n primaria, lucio un seguimiento con ?l. Prescriptions: No Action ursodiol 500 mg tablet 500 mg PO BID Qty: 60 3RF leflunomide 20 mg tablet 20 mg PO DAILY Qty: 30 0RF ferrous sulfate [FeroSul] 325 mg (65 mg iron) tablet 1 tab PO DAILY cilostazol 100 mg tablet 100 mg PO BID docusate sodium 100 mg capsule 100 mg PO BEDTIME PRN (Reason: Constipation) albuterol sulfate 90 mcg/actuation Hfa Aerosol Inhaler 2 puff INHALATION Q6H PRN (Reason: Wheezing) vitamin A 3,000 mcg (10,000 unit) capsule 1 cap PO DAILY ascorbic acid (vitamin C) [Vitamin C] 500 mg tablet 1,000 mg PO DAILY folic acid 1 mg tablet 1 mg PO DAILY PRN (Reason: Folic Acid Levels) nicotine 21 mg/24 hr Patch 24 Hour 1 patch TRANSDERMAL DAILY alprazolam 1 mg tablet 1 mg PO BEDTIME PRN (Reason: Anxiety) Eliquis 5 mg tablet 5 mg PO BID chlorhexidine gluconate 0.12 % mouthwash 15 ml PO DAILY PRN (Reason: Bacteria) pantoprazole 40 mg tablet,delayed release (DR/EC) 40 mg PO DAILY Qty: 90 1RF Olumiant 2 mg tablet PO sertraline [Zoloft] 50 mg tablet 75 mg PO DAILY oxycodone-acetaminophen 10-325 mg tablet 1 tab PO Q8H PRN (Reason: severe pain) Print Language: Welsh
[2024-04-13 09:10] LABS: MANUAL DIFF FLAG NO
[2024-04-13 09:15] LABS: Basophils Percent Auto 0.3 % (0-2); Eosinophils Absolute Auto 0.1 X10*3/uL (0.0-0.4); Eosinophils Percent Auto 0.9 % (0-4); Hematocrit 33.9 % (37.0-47.0); Hemoglobin 11.2 g/dl (12.0-16.0); Imm Gran Abs Auto 0.02 X10*3/uL (0.00-0.03); Imm Gran Pct Auto 0.3 % (0.0-0.4); Lymphocytes Absolute Auto 1.4 X10*3/uL (1.2-4.9); Mean Corpuscular Hemoglobin 30.8 pg (27.0-33.0); Mean Corpuscular Volume 93.1 fL (80.0-98.0); Mean Platelet Volume 9.9 fL (9.4-12.3); Monocytes Absolute Auto 0.5 X10*3/uL (0.1-1.2); Monocytes Percent Auto 6.4 % (2-11); Neutrophils Absolute Auto 5.7 x10*3/uL (2.0-8.3); Neutrophils Percent Auto 74.1 % (45-73); Platelet Count 305 X10*3/uL (160-400); Red Blood Count 3.64 X10*6/uL (4.20-5.50); Red Cell Distribution Width 14.6 % (11.0-16.0); White Blood Count 7.7 X10*3/uL (4.8-10.8)
[2024-04-13 09:24] LABS: Anion Gap 14 (12-20); Blood Urea Nitrogen 11 mg/dL (9-16); Calcium 10.1 mg/dL (8.4-10.2); Carbon Dioxide 22 mmol/L (22-29); Chloride 105 mmol/L (96-108); Creatinine Clr Calc Pharmacy 95.9; Estimated Glomerular Filt Rate > 60; Glucose Random 100 mg/dL (60-115); Potassium 4.1 mmol/L (3.3-5.1); Sodium 137 mmol/L (135-145)
[2024-04-13 09:31] LABS: Troponin-I High Sensitivity < 2.7 ng/L (<3.5-17.0)
[2024-04-13 09:35] VITALS: BP 102/60; PULSE 81; RESP 22; TEMP 37.1; O2SAT 94
[2024-04-13] MEDS: oxyCODONE HCl Immed Release 5 MG TABLET 10 MG PO (09:40)
[2024-04-13 09:51] LABS: Influenza A PCR NEGATIVE (Negative); Influenza B PCR NEGATIVE (Negative); Resp Syncy Virus RNA Qual PCR NEGATIVE (Negative); SARS COV2 PCR INHOUSE NEGATIVE (Negative)
[2024-04-13 10:12] VITALS: BP 102/60; PULSE 81; RESP 18; TEMP 37.1; O2SAT 94
[2024-04-13 10:33] LABS: Erythrocyte Sedimentation Rate 92 MM/HR (0-20)
== END 2024-04-13 10:18 | disposition home or self-care (01) ==
PROVIDERS: Emergency Provider Emergency Medicine; PCP General Practice
DX: R07.89 Other chest pain (principal); Z03.818 Encounter for observation for suspected exposure to other biological agents ruled out; J43.9 Emphysema, unspecified; F17.210 Nicotine dependence, cigarettes, uncomplicated; Z92.21 Personal history of antineoplastic chemotherapy; Z79.899 Other long term (current) drug therapy; Z86.718 Personal history of other venous thrombosis and embolism; Z85.29 Personal history of malignant neoplasm of other respiratory and intrathoracic organs; Z85.830 Personal history of malignant neoplasm of bone; Z85.118 Personal history of other malignant neoplasm of bronchus and lung; Z79.01 Long term (current) use of anticoagulants
CPT/HCPCS: 0241U; 36415; 71046; 80048; 84484; 85025; 85652; 93005; 99283; 99284

== ENCOUNTER 2024-04-20 05:18 | Emergency (ER) | payer MEDICAID, SELFPAY ==
--- NOTE | 2024-04-20 | ECG_ITS ---
Test Reason : WEAKNESS Blood Pressure : / mmHG Vent. Rate : 091 BPM Atrial Rate : 091 BPM P-R Int : 164 ms QRS Dur : 098 ms QT Int : 362 ms P-R-T Axes : 067 -57 075 degrees QTc Int : 445 ms Normal sinus rhythm Incomplete right bundle branch block Left anterior fascicular block Left ventricular hypertrophy with repolarization abnormality ( R in aVL , Remy product ) Abnormal ECG When compared with ECG of 13-APR-2024 08:49, No significant change was found Referred By: Generic ED Physician Electronically Signed By:MARITZA GUAMAN
[2024-04-20 05:22] VITALS: BP 112/70; BP 114/66; PULSE 100; PULSE 86; RESP 17; TEMP 36.8; O2SAT 100; O2SAT 98; BMI 32.2
--- NOTE | 2024-04-20 05:45 | PC.NURSE ---
bee tender at bedside. pt a&ox4, respirations even and unlabored. pt reporting onset of weakness x24 hours. pt reports that has subsided but now reports she has left sided shoulder pain, right groin pain and right thigh pain. pt reports it is hard to walk at this time. pt is tearful. pt neuro in tact at this time. pt denies chest pain, n/v/d. 20G placed in left hand, labs obtained and sent. pt normal sinus on tele 80-85bpm.
[2024-04-20 05:56] LABS: MANUAL DIFF FLAG NO
[2024-04-20 06:00] LABS: Basophils Percent Auto 0.1 % (0-2); Eosinophils Absolute Auto 0.1 X10*3/uL (0.0-0.4); Eosinophils Percent Auto 0.7 % (0-4); Hematocrit 33.6 % (37.0-47.0); Hemoglobin 11.2 g/dl (12.0-16.0); Imm Gran Abs Auto 0.03 X10*3/uL (0.00-0.03); Imm Gran Pct Auto 0.4 % (0.0-0.4); Lymphocytes Absolute Auto 1.5 X10*3/uL (1.2-4.9); Lymphocytes Percent Auto 21.9 % (20-40); Mean Corpuscular HGB Conc 33.3 g/dl (31.0-35.0); Mean Corpuscular Hemoglobin 30.7 pg (27.0-33.0); Mean Corpuscular Volume 92.1 fL (80.0-98.0); Mean Platelet Volume 9.7 fL (9.4-12.3); Monocytes Absolute Auto 0.5 X10*3/uL (0.1-1.2); Monocytes Percent Auto 7.4 % (2-11); Neutrophils Absolute Auto 4.7 x10*3/uL (2.0-8.3); Neutrophils Percent Auto 69.5 % (45-73); Platelet Count 307 X10*3/uL (160-400); Red Blood Count 3.65 X10*6/uL (4.20-5.50); Red Cell Distribution Width 14.6 % (11.0-16.0); White Blood Count 6.8 X10*3/uL (4.8-10.8)
[2024-04-20 06:08] LABS: D Dimer High Sensitivity 458 NG/ML
[2024-04-20 06:09] LABS: Alanine Aminotransferase 13 U/L (0-31); Albumin Level 4.1 g/dL (3.5-5.0); Alkaline Phosphatase 89 U/L (39-117); Anion Gap 17 (12-20); Aspartate Amino Transferase 24 U/L (5-31); Bilirubin Total 0.4 mg/dL (0.0-1.0); Blood Urea Nitrogen 11 mg/dL (9-16); Calcium 10.1 mg/dL (8.4-10.2); Carbon Dioxide 18 mmol/L (22-29); Chloride 105 mmol/L (96-108); Creatinine Clr Calc Pharmacy 93.8; Estimated Glomerular Filt Rate > 60; Glucose Random 111 mg/dL (60-115); Potassium 4.1 mmol/L (3.3-5.1); Sodium 136 mmol/L (135-145); Total Protein 9.7 g/dL (6.5-8.0)
[2024-04-20 06:12] LABS: Troponin-I High Sensitivity < 2.7 ng/L (<3.5-17.0)
--- NOTE | 2024-04-20 07:19 | ED.WEAKNESS ---
HPI - Weakness General Chief complaint: Weakness Stated complaint: LEFT SIDED WEAKNESS Time Seen by Provider: 04/20/24 05:34 Source: patient, old records reviewed and emg technician Mode of arrival: ambulatory Limitations: no limitations History of Present Illness ED Provider: AMA WESLEY Narrative: 48 yo female with PMH of anemia, PAD, fibromyalgia, lupus, RA, HARINI, DVT on eliquis, opiate dependence here with c/o her L arm being so painful she cannot use. She notes her L elbow over the past 5 days hurts so much she cannot move it. She has chronic cysts on both olecranons. She has been having worsening joint pains in all joints. She denies fevers. She has redness to posterior aspect of the L elbow with some boggines to the olecranon bursa which she states started 5 days ago. She does have a EXTRUSION FORMER. MD Complaint: focal weakness (L elbow pain) Onset (ago): day(s) (5) Duration: constant Location: LUE Migration: none Severity: severe Quality: aching and crushing Relieving factors: none Exacerbating factors: movement Context: other Associated symptoms: myalgias Related Data Home Medications ?Medication ?Instructions ?Recorded ?Confirmed ferrous sulfate 325 mg (65 mg 1 tab PO DAILY 10/02/21 03/22/24 iron) tablet (FeroSul) apixaban 5 mg tablet (Eliquis) 5 mg PO BID 09/22/22 03/22/24 alprazolam 1 mg tablet 1 mg PO BEDTIME PRN Anxiety 12/10/22 03/22/24 chlorhexidine gluconate 0.12 % 15 ml PO DAILY PRN Bacteria 10/25/23 03/22/24 mouthwash oxycodone-acetaminophen 10 mg-325 1 tab PO Q8H PRN severe pain 12/14/23 03/22/24 mg tablet albuterol sulfate 90 mcg/actuation 2 puff inhalation Q6H PRN Wheezing 02/20/24 03/22/24 aerosol inhaler ascorbic acid (vitamin C) 500 mg 1,000 mg PO DAILY 02/20/24 03/22/24 tablet (Vitamin C) cilostazol 100 mg tablet 100 mg PO BID 02/20/24 03/22/24 docusate sodium 100 mg capsule 100 mg PO BEDTIME PRN Constipation 02/20/24 03/22/24 folic acid 1 mg tablet 1 mg PO DAILY PRN Folic Acid Levels 02/20/24 03/22/24 nicotine 21 mg/24 hr daily 1 patch transdermal DAILY 02/20/24 03/22/24 transdermal patch vitamin A 3,000 mcg (10,000 unit) 1 cap PO DAILY 02/20/24 03/22/24 capsule baricitinib 2 mg tablet (Olumiant) mg PO 03/22/24 03/22/24 sertraline 50 mg tablet (Zoloft) 75 mg PO DAILY 03/22/24 03/22/24 Previous Rx's ?Medication ?Instructions ?Recorded pantoprazole 40 mg tablet,delayed 40 mg PO DAILY #90 tabs 11/04/23 release ursodiol 500 mg tablet 500 mg PO BID #60 tabs 02/29/24 leflunomide 20 mg tablet 20 mg PO DAILY #30 tabs 04/10/24 cephalexin 500 mg tablet 500 mg PO QID 7 days #28 tabs 04/20/24 doxycycline hyclate 100 mg capsule 100 mg PO BID 7 days #14 caps 04/20/24 Allergies Allergy/AdvReac Type Severity Reaction Status Date / Time almond [ALMONDS] Allergy Severe ANAPHYLAXIS Verified 04/20/24 05:27 adhesive tape [ADHESIVE TAPE] Allergy Intermediate RASH Verified 04/20/24 05:27 morphine [MORPHINE] Allergy Intermediate GI UPSET, Verified 04/20/24 05:27 difficulty breathing tramadol [TRAMADOL] AdvReac Unknown NAUSEA & Verified 04/20/24 05:27 VOMITING Review of Systems Review of Systems: Constitutional : No Fever, No Chills ENT/Mouth : No Ear Pain, No Hoarseness, No sore throat Eyes: No Eye Pain, No Swelling, No Redness, No Foreign Body Cardiovascular : No Chest Pain, No SOB Respiratory : No Cough, No Dyspnea Gastrointestinal : No Nausea, No Vomiting, No Diarrhea, No abdominal Pain Genitourinary : No Dysuria, No Hematuria Musculoskeletal : positive joint pain, No Myalgias, pos Joint Swelling Skin : pos Skin lesion, pos rash Neuro : No Weakness, No Numbness, No Loss of Consciousness, No Dizziness, No Headache Psych : No Anxiety/Panic, No Depression Heme/Lymph: no easy bruising, no Lymphadenopathy Endocrine : No Polyuria, No Polydipsia All other systems reviewed and are negative [facility] Past Medical History Attestation statement: The following information was validated with the patient. Source: old records reviewed Medical History Skin lesion Anxiety Achilles tendinitis Superficial femoral artery occlusion Knee pain, left Depression Hx of peripheral pulmonary artery stenosis PAD (peripheral artery disease) History of chemotherapy Cancer of heart Bone cancer Lung cancer Seropositive rheumatoid arthritis Bleeding hemorrhoid Degeneration, intervertebral disc, lumbar Chronic GERD Degeneration of intervertebral disc at C4-C5 level Osteoarthritis of spine with radiculopathy, lumbar region Fibromyalgia Esophageal dysphagia Vitamin D deficiency Systemic lupus erythematosus Seropositive rheumatoid arthritis Rheumatoid arthritis involving multiple sites Gallstones Stress incontinence in female Nocturia Urgency-frequency syndrome De Quervain's disease (tenosynovitis) Depressive disorder Acute arthritis Hodgkin disease Surgical History History of surgical removal of skin lesion (~07/13/23) History of angioplasty of vein History of biopsy H/O tubal ligation Hx of endoscopy Hx laparoscopic cholecystectomy Hx of colonoscopy History of esophagogastroduodenoscopy (EGD) History of repair of inguinal hernia History of lymph node dissection of left axilla Family History Family History Maternal Grandmother Ovarian cancer Social History Social History Household Members: Spouse Housing: Apartment Are you a primary health care marketing manager to a significant other at home: No Alcohol intake: never Comment: son at bedside Patient Tobacco Use Status: Current everyday Tobacco user Tobacco use type: Cigarette Cigarette Packs Per Day: 1 Cigarettes Per Day: 20.0 Smoked in Last 30 Days: No Use of substances other than those prescribed or required for medical reasons: No Substance Use Type: Marijuana Advance Directives: Yes Advance Directives on File: Yes Advance Directives Date on File: 02/24/24 Do you have a plan to hurt others: No Plan Patient : No service: No Current occupational status: disabled 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 Oriented X3. No acute distress. Eyes: Pupils equal, round and reactive to light. ENT: Pharynx normal. Neck: Normal inspection. Neck supple. CVS: Normal heart rate and rhythm. Pulses normal. Respiratory: No respiratory distress. Breath sounds normal. Abdomen: Soft and nontender. Skin: Skin warm and dry. Normal skin color. Normal skin turgor. Extremities: No lower extremity edema. L elbow no joint effusion on both olecranons there are hard white deposits but on L olecranon on the prominence of the olecranon there is a small red area with very small fluctuance noted it is ttp there is no joint effusion but she reports any pain to palpation. She has distal pulses and sensation intact. Neuro: Oriented X 3. No motor deficit. No sensory deficit. Course Course Course Narrative: dose of vanco and zosyn prior to DC Medications Administered Discontinued Medications Generic Name Dose Route Start Last Admin Trade Name Freq PRN Reason Stop Dose Admin Piperacillin Sod/Tazobactam 50 mls @ 100 mls/hr 04/20/24 07:36 04/20/24 08:35 Sod 3.375 gm/ Sodium Chloride IV 04/20/24 08:05 Infused ONCE ONE Infusion Lorazepam 1 mg 04/20/24 07:57 04/20/24 08:11 Lorazepam 1 Mg Tablet PO 04/20/24 07:58 1 mg ONCE ONE Administration Oxycodone HCl 10 mg 04/20/24 07:46 04/20/24 07:52 Oxycodone Hcl Immed Release 5 Mg Tablet PO 04/20/24 07:47 10 mg ONCE ONE Administration Medical Decision Making Medical Decision Making MDM Narrative: 48 yo female with PMH of anemia, PAD, fibromyalgia, lupus, RA, HARINI, DVT on eliquis, opiate dependence here with c/o redness, swelling and signs of olecranon bursitis that I suspect is infected - she has no fevers, no wbc count no signs of joint effusion or septic joint. She is immunocompromised. At this time I will start on dose of IV zosyn and pain medications and monitor. It is very small and localized. She does have appointment with rheum today as her joints have been more painful over all Differential Diagnosis Differential Diagnoses: The differential diagnosis associated with the presentation includes olecranon bursitis, infected tophi, cellulitis Admission/Observation Consideration of admission/observation: Escalation of care including admission/observation considered labs reassuring, VS stable, moving arm eating crackers in the room no signs of sepsis, no signs of septic joint can trial oral antibiotics and then 48 hours watching prior to I+D or aspiration given the tophi and risk of worsening infection Lab Data MDM Lab Attestation statement: I reviewed the patient's lab results. 04/20/24 05:51 04/20/24 05:38 Labs: Lab Results 04/20/24 04/20/24 Range/Units 05:38 05:51 WBC 6.8 (4.8-10.8) X10*3/uL RBC 3.65 L (4.20-5.50) X10*6/uL Hgb 11.2 L (12.0-16.0) g/dl Hct 33.6 L (37.0-47.0) % MCV 92.1 (80.0-98.0) fL MCH 30.7 (27.0-33.0) pg MCHC 33.3 (31.0-35.0) g/dl RDW 14.6 (11.0-16.0) % Plt Count 307 (160-400) X10*3/uL MPV 9.7 (9.4-12.3) fL Immature Gran % (Auto) 0.4 (0.0-0.4) % Neut % (Auto) 69.5 (45-73) % Lymph % (Auto) 21.9 (20-40) % [place] % (Auto) 7.4 (2-11) % Eos % (Auto) 0.7 (0-4) % Baso % (Auto) 0.1 (0-2) % Lymph # (Auto) 1.5 (1.2-4.9) X10*3/uL [place] # (Auto) 0.5 (0.1-1.2) X10*3/uL Eos # (Auto) 0.1 (0.0-0.4) X10*3/uL Baso # (Auto) 0.0 (0.0-0.2) X10*3/uL Abs Immat Gran (auto) 0.03 (0.00-0.03) X10*3/uL Absolute Neuts (auto) 4.7 (2.0-8.3) x10*3/uL Absolute Nucleated RBC 0.000 (0.0-0.012) X10*3/uL Nucleated RBC % (auto) 0.0 (0.0-0.2) /100WBC PT 12.0 (10.9-12.4) SEC INR 1.0 (0.9-1.1) D-Dimer High Sensitivty 458 NG/ML Sodium 136 (135-145) mmol/L Potassium 4.1 (3.3-5.1) mmol/L Chloride 105 (96-108) mmol/L Carbon Dioxide 18 L (22-29) mmol/L Anion Gap 17 (12-20) BUN 11 (9-16) mg/dL Creatinine 0.84 (0.5-1.4) mg/dL Estim Creat Clear Calc 93.8 Estimated GFR > 60 Random Glucose 111 (60-115) mg/dL Calcium 10.1 (8.4-10.2) mg/dL Total Bilirubin 0.4 (0.0-1.0) mg/dL AST 24 (5-31) U/L ALT 13 (0-31) U/L Alkaline Phosphatase 89 (39-117) U/L Troponin I High Sens < 2.7 (<3.5-17.0) ng/L Total Protein 9.7 H (6.5-8.0) g/dL Albumin 4.1 (3.5-5.0) g/dL Independent Interpretation I performed an independent interpretation of an: EKG Interpretation: Rate: 91 Rhythm: NSR [place]: left, LVH Normal P waves. Normal JAMES. Normal QRS complex. ST T wave : no JHON, inverted t wave I and aVL qTC: normal prior studies: no change from priors The study has been interpreted contemporaneously by me. . Independent Historian Clinical information obtained from an independent historian. History obtained from or confirmed by: Spouse External Record Review External record reviewed: Inpatient record and Outpatient record Prescription Management I considered prescription management with: Antibiotic Discharge Plan Discharge Clinical Impression: Bursitis Qualifiers: Bursitis location: elbow Elbow bursitis location: olecranon bursitis Laterality: left Qualified Code(s): M70.22 - Olecranon bursitis, left elbow Patient Disposition: Home, Self-Care Instructions: Elbow Bursitis (ED) Additional Instructions: your labs are reassuring today you have an inflamed and infected bursa of the left elbow we will start with oral antibiotics as first line treatment if not better or worsening in the next 48 hours will need to treat with possible IV antibiotics or drainage of the area if you are getting worse or feel that it is spreading please come back take all antibiotics start the next dose around dinner On a cephalosporin?antibiotic, softer bowel movements are to be expected. Call your provider if you move your bowels more than 4 times a day, your bowel movements are almost all liquid, or you get a rash.?? On doxycycline, do not take pills immediately before going to bed and swallow pills with plenty of water. Avoid direct sunlight, iron, antacids, and Pepto Bismol. Call your provider if you develop new ringing in your ears, new problems hearing, dizziness, difficulty swallowing, rash, abdominal discomfort, nausea, or diarrhea.? Prescriptions: New cephalexin 500 mg tablet 500 mg PO QID 7 Days Qty: 28 0RF doxycycline hyclate 100 mg capsule 100 mg PO BID 7 Days Qty: 14 0RF No Action ursodiol 500 mg tablet 500 mg PO BID Qty: 60 3RF leflunomide 20 mg tablet 20 mg PO DAILY Qty: 30 0RF ferrous sulfate [FeroSul] 325 mg (65 mg iron) tablet 1 tab PO DAILY cilostazol 100 mg tablet 100 mg PO BID docusate sodium 100 mg capsule 100 mg PO BEDTIME PRN (Reason: Constipation) albuterol sulfate 90 mcg/actuation Hfa Aerosol Inhaler 2 puff INHALATION Q6H PRN (Reason: Wheezing) vitamin A 3,000 mcg (10,000 unit) capsule 1 cap PO DAILY ascorbic acid (vitamin C) [Vitamin C] 500 mg tablet 1,000 mg PO DAILY folic acid 1 mg tablet 1 mg PO DAILY PRN (Reason: Folic Acid Levels) nicotine 21 mg/24 hr Patch 24 Hour 1 patch TRANSDERMAL DAILY alprazolam 1 mg tablet 1 mg PO BEDTIME PRN (Reason: Anxiety) Eliquis 5 mg tablet 5 mg PO BID chlorhexidine gluconate 0.12 % mouthwash 15 ml PO DAILY PRN (Reason: Bacteria) pantoprazole 40 mg tablet,delayed release (DR/EC) 40 mg PO DAILY Qty: 90 1RF Olumiant 2 mg tablet PO sertraline [Zoloft] 50 mg tablet 75 mg PO DAILY oxycodone-acetaminophen 10-325 mg tablet 1 tab PO Q8H PRN (Reason: severe pain) Print Language: Peruvian
--- NOTE | 2024-04-20 07:50 | PC.NURSE ---
No cultures needed per provider
[2024-04-20] MEDS: oxyCODONE HCl Immed Release 5 MG TABLET 10 MG PO (07:52)
[2024-04-20] MEDS: Piperacillin Sodium/Tazobactam 3.375 GM in 0.9 % Sodium Chloride 50 ML IV (07:52)
[2024-04-20] MEDS: LORazepam 1 MG TABLET PO (08:11)
[2024-04-20 08:21] VITALS: BP 128/71; PULSE 81; RESP 17; TEMP 36.8; O2SAT 97
--- NOTE | 2024-04-20 08:38 | MHC.EDTECH ---
Vitals was completed and patient walked to the both room fine, patient complain about pain in the left side of her shoulder and chest RN aware, pt rest in bed and call cardona within pt reach.
[2024-04-20] MEDS: vancomycin/NS 2,000 MG/500 ML PLAST..BAG 250 MG IV (10:20)
[2024-04-20] MEDS: Doxycycline Monohydrate 100 MG CAPSULE PO (10:20)
[2024-04-20 10:50] VITALS: BP 107/56; PULSE 80; RESP 16; TEMP 36.8; O2SAT 96
[2024-04-20 12:21] VITALS: BP 107/68; PULSE 89; RESP 16; TEMP 37.2; O2SAT 99
== END 2024-04-20 12:41 | disposition home or self-care (01) ==
PROVIDERS: Internal Medicine; Emergency Provider Emergency Medicine; PCP General Practice
DX: M70.22 Olecranon bursitis, left elbow (principal); M79.602 Pain in left arm; I45.10 Unspecified right bundle-branch block; R94.31 Abnormal electrocardiogram [ECG] [EKG]; Z86.718 Personal history of other venous thrombosis and embolism; Z79.01 Long term (current) use of anticoagulants; Z79.899 Other long term (current) drug therapy
CPT/HCPCS: 36415; 80053; 84484; 85025; 85379; 85610; 93005; 96365; 96367; 99284; 99285; J2543; J3370

== ENCOUNTER 2024-04-23 10:17 | Outpatient (AMB) | payer MEDICAID, SELFPAY ==
--- NOTE | 2024-04-23 10:44 | A.OFFVIS_ITS ---
Vital Signs 04/23/24 10:47 Height 5 ft 6 in Weight 194 lb 0.108 oz BMI 31.3 BP 130/69 Blood Pressure Location Lt brachial Position Sitting Pulse 82 Intake Visit Reasons: 4 months follow up Intake Note: Ginette presents in the office as a 4 month follow up. CC: She states that she is having pains and she is not sure if it is related to her lungs or kidneys. She states both sides in the mid back area. Barrel Tester Required: Yes Barrel Tester Name: [id number] Karson Allergies almond [ALMONDS] Allergy (Severe, Verified 04/23/24 10:48) ANAPHYLAXIS adhesive tape [ADHESIVE TAPE] Allergy (Intermediate, Verified 04/23/24 10:48) RASH morphine [MORPHINE] Allergy (Intermediate, Verified 04/23/24 10:48) GI UPSET, difficulty breathing tramadol [TRAMADOL] Adverse Reaction (Unknown, Verified 04/23/24 10:48) NAUSEA & VOMITING HPI HPI 4 months follow up: Details: 48 yr old f with hx of SLE<RA< lymphoma, hx of DVT, being seen for f/u of Gi sx RECAP She had c/o pain lower chest and epigastrium for 5-6 months pain can go to the neck feels like a squeezing sensation, 10/10 in severity at times the pain can come on with sitting still watching TV, not worse with exertion she does have occ vomiting, and nausea usu in the morning pain wakes her at night food doesn;t affect denies heartburn, occ constipation, no blood in stool \ admits to dysphagia, since she had a biopsy done in her neck she was given gabapentin and referred pain management, her belkys was increased by dr mann, i suspected strong myofascial component TESTS: EGD/colon 09/2017- normal us 2017- gallstones, enlarged liver CT 2018- absent GB, abn fallopian tube, ovarian cyst. EGD 05/2019: with GEJ inflammation, LA grade A esophagitis, dilation with small tear \advised on PPI complaince and correct taking of medication Note labs with low b12 04/2019--156--repeat with supplements was >300 , gliadin ab pos At follow up 07/2019: swallowing was better, no choking, squeezing in lower chest, had been referred to cards for eval LABS: repeat mild celiac ab elevation, celiac gene test was neg for mutation ECG--06/2019--no signs of epicarditis, LAD, no acute changes seen Ba swallow 03/2021-- thin cervical esophageal web and tab held up at [facility] [place] labs 09/2021-- nml LFt, HGB borderline Office 09/2021-- c/o chest pain, abdominal pain, sharp RUq pain where GB use to be and diarrhea pain and symptoms can be worse with rice or meat she still had some trouble swallowing EGD 10/08/21 bile acid reflux gastropathy esophagitis peptic duodenitis was given trial of ursodiol EGD 11/2022-- active esophagitis, dilation done US 12/2022-- fatty liver She was admitted for rectal bleeding and had egd/colo rectal hemorrhoids noted and bile acid gastritis bx neg for amyloid Interim: she had 2 episodes of hard stools with some rectal bleeding joints with ongoing pain, not seen rheum for f/u she feels urosdiol has helped her stomach no dysphagia no abdominal pain EXAM: GENERAL: The patient is well developed and nontoxic. VITAL SIGNS:see workflow HEENT: Nonicteric sclerae, PERRLA, EOMI. Oropharynx clear. Moist mucous membranes. Conjunctivae appear well perfused. No thyroid mass. CHEST: Chest wall is nontender. HEART: Regular rate and rhythm without murmurs. LUNGS: Clear to auscultation bilaterally. ABDOMEN: Soft, positive bowel sounds, non tender , no organomegaly.no flank tenderness SKIN: dry NEUROLOGIC: Cranial nerves II-XII intact without motor/sensory deficit. Joints: both hands swollen, right ankle swollen, can hardly walk--using stick a/P: 1/ dysphagia -on PPI which helps, dilation helped 2/ polyarthropathy and synovitis --not responding to current treatment 3/ bile acid reflux gastritis -on urosdiol PLAN: 1/ cont ursodiol 2/ cont PPI 3/ f/u rheum 4 can use stool softener--colace [facility] Medical History Skin lesion Anxiety Achilles tendinitis Superficial femoral artery occlusion Knee pain, left Depression Hx of peripheral pulmonary artery stenosis PAD (peripheral artery disease) History of chemotherapy Cancer of heart Bone cancer Lung cancer Seropositive rheumatoid arthritis Bleeding hemorrhoid Degeneration, intervertebral disc, lumbar Chronic GERD Degeneration of intervertebral disc at C4-C5 level Osteoarthritis of spine with radiculopathy, lumbar region Fibromyalgia Esophageal dysphagia Vitamin D deficiency Systemic lupus erythematosus Seropositive rheumatoid arthritis Rheumatoid arthritis involving multiple sites Gallstones Stress incontinence in female Nocturia Urgency-frequency syndrome De Quervain's disease (tenosynovitis) Depressive disorder Acute arthritis Hodgkin disease Surgical History History of surgical removal of skin lesion (~07/13/23) History of angioplasty of vein History of biopsy H/O tubal ligation Hx of endoscopy Hx laparoscopic cholecystectomy Hx of colonoscopy History of esophagogastroduodenoscopy (EGD) History of repair of inguinal hernia History of lymph node dissection of left axilla Family History Maternal Grandmother Ovarian cancer Social History Household Members: Spouse Housing: Apartment Are you a primary health care marketing specialist to a significant other at home: No Alcohol intake: never Comment: son at bedside Patient Tobacco Use Status: Current everyday Tobacco user Tobacco use type: Cigarette Cigarette Packs Per Day: 1 Cigarettes Per Day: 20.0 Substance Use Type: Marijuana Advance Directives Date on File: 02/24/24 service: No Current occupational status: disabled 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
[2024-04-23 10:47] VITALS: BP 130/69; PULSE 82; BMI 31.3
== END 2024-04-23 11:23 | disposition home or self-care (01) ==
PROVIDERS: PCP General Practice; Visit Provider Internal Medicine Gastroenterology
DX: K64.8 Other hemorrhoids (principal)
CPT/HCPCS: 99213

== ENCOUNTER → 2024-04-23 10:17 | Outpatient (BNVA) | payer MEDICAID, SELFPAY | PROVIDERS: PCP General Practice; Visit Provider Internal Medicine Gastroenterology | DX: M05.9 Rheumatoid arthritis with rheumatoid factor, unspecified (principal); M32.9 Systemic lupus erythematosus, unspecified; M87.052 Idiopathic aseptic necrosis of left femur; Z79.631 Long term (current) use of antimetabolite agent; Z79.899 Other long term (current) drug therapy | CPT/HCPCS: 99212 ==

== ENCOUNTER 2024-04-23 13:54 | Outpatient (AMB) | payer MEDICAID, SELFPAY ==
--- NOTE | 2024-04-23 14:33 | A.OFFVIS_ITS ---
Vital Signs 04/23/24 14:34 Height 5 ft 6 in Weight 197 lb 8.547 oz BMI 31.9 BP 128/74 Blood Pressure Location Lt brachial Position Sitting Pulse 85 Pulse Source Pulse Oximeter Pulse Oximetry (%) 99 Oxygen Delivery Method Room Air Intake Visit Reasons: RA Intake Note: Patient is here for follow up on RA, and she states she states she has swollen hands after she had stomach surgery. Patient states that left hand has been swollen since three this morning. Water Treatment Plant Supervisor Required: Yes Water Treatment Plant Supervisor Name: yris Bhakta [id number] Allergies almond [ALMONDS] Allergy (Severe, Verified 04/23/24 14:38) ANAPHYLAXIS adhesive tape [ADHESIVE TAPE] Allergy (Intermediate, Verified 04/23/24 14:38) RASH morphine [MORPHINE] Allergy (Intermediate, Verified 04/23/24 14:38) GI UPSET, difficulty breathing leflunomide Adverse Reaction (Intermediate, Verified 04/23/24 17:17) twitching tramadol [TRAMADOL] Adverse Reaction (Unknown, Verified 04/23/24 10:48) NAUSEA & VOMITING Medication List - Last Reconciled 04/23/24 by Simon Elkins MD albuterol sulfate 90 mcg/actuation 2 puffs inhalation Q6H PRN alprazolam 1 mg PO BEDTIME PRN apixaban (Eliquis) 5 mg PO BID ascorbic acid (vitamin C) (Vitamin C) 1,000 mg PO DAILY baricitinib (Olumiant) mg PO benztropine 0.5 mg PO DAILY cephalexin 500 mg PO QID 7 days cetirizine 10 mg PO QAM chlorhexidine gluconate 0.12% 15 mL PO DAILY PRN cilostazol 100 mg PO BID diclofenac sodium 1% 2 grams topical QID docusate sodium (Colace) 100 mg PO BID doxycycline hyclate 100 mg PO BID 7 days ferrous sulfate (FeroSul) 1 tab PO DAILY folic acid 1 mg PO DAILY PRN gabapentin mg PO leflunomide 20 mg PO DAILY nicotine 1 patch transdermal DAILY oxycodone-acetaminophen 7.5-325 mg 1 tab PO Q8H PRN pantoprazole 40 mg PO DAILY risperidone mg PO sertraline (Zoloft) 75 mg PO DAILY trazodone 150 mg PO BEDTIME PRN umeclidinium 62.5 mcg/actuation (Incruse Ellipta) 1 inh inhalation DAILY ursodiol 250 mg PO vitamin A 1 cap PO DAILY HPI Comments Details: 48-year-old female with seropositive nodular RA returns for follow-up. She is on Olumiant daily, methotrexate 25 mg weekly split dose folic acid 1 mg daily. Last visit I prescribed leflunomide, patient could not tolerate it due to twitching. Prednisone was discontinued last visit to ONJ of the left hip. Patient is not doing well overall. She is doing worse. She continues to have diffuse joint pain and swelling. She can hardly make a fist with her hands. She has bilateral knee pain, bilateral ankle pain and swelling. Can hardly move her shoulders. most recent hx by Dr. Ram 07/2023:The patient with RA returns today with complaints of pain in the right wrist. Her son accompanies her today and translates for us. She had called us earlier in the week with a flare-up of symptoms in the elbow, wrist and shoulder on the right. At her last visit a month ago I had prescribed baricitinib but for some reason she has yet to receive it. She tells me now the delivery is for tomorrow or the next day. She remains on ibuprofen 800 b.i.d., acetaminophen 1 or 2 b.i.d., methotrexate 20 mg weekly, folic acid 1 mg daily, gabapentin 400 mg t.i.d. and Percocet prescribed by her primary doctor t.i.d. When she had called earlier this week we had her increase her prednisone up to 10 b.i.d. from 5 mg b.i.d. The other joints that hurt her today include the right hand, both knees - left greater than right, and right ankle.She has an orth0 visit latrer today to discuss the left knee. [facility] Medical History Skin lesion Anxiety Achilles tendinitis Superficial femoral artery occlusion Knee pain, left Depression Hx of peripheral pulmonary artery stenosis PAD (peripheral artery disease) History of chemotherapy Cancer of heart Bone cancer Lung cancer Seropositive rheumatoid arthritis Bleeding hemorrhoid Degeneration, intervertebral disc, lumbar Chronic GERD Degeneration of intervertebral disc at C4-C5 level Osteoarthritis of spine with radiculopathy, lumbar region Fibromyalgia Esophageal dysphagia Vitamin D deficiency Systemic lupus erythematosus Seropositive rheumatoid arthritis Rheumatoid arthritis involving multiple sites Gallstones Stress incontinence in female Nocturia Urgency-frequency syndrome De Quervain's disease (tenosynovitis) Depressive disorder Acute arthritis Hodgkin disease Surgical History History of surgical removal of skin lesion (~07/13/23) History of angioplasty of vein History of biopsy H/O tubal ligation Hx of endoscopy Hx laparoscopic cholecystectomy Hx of colonoscopy History of esophagogastroduodenoscopy (EGD) History of repair of inguinal hernia History of lymph node dissection of left axilla Family History Maternal Grandmother Ovarian cancer Social History Household Members: Spouse Housing: Apartment Are you a primary zoo caretaker to a significant other at home: No Alcohol intake: never Comment: son at bedside Patient Tobacco Use Status: Current everyday Tobacco user Tobacco use type: Cigarette Cigarette Packs Per Day: 1 Cigarettes Per Day: 20.0 Substance Use Type: Marijuana Advance Directives Date on File: 02/24/24 service: No Current occupational status: disabled 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 of Systems Musc Reports arthralgias, Reports joint swelling, Reports limited range of motion and Reports stiffness Physical Exam Vital Signs: Last Vital Signs Pulse 85 04/23/24 14:34 BP 128/74 04/23/24 14:34 Pulse Ox 99 04/23/24 14:34 Oxygen Delivery Method Room Air 04/23/24 14:34 BMI result Body Mass Index 31.9 Const General: cooperative, healthy appearing and comfortable Nutritional Appearance: obese morbidly obese Orientation/consciousness: patient oriented x3 Limitations: ambulation with cane HEENT Head: Yes normocephalic and Yes atraumatic Mouth: moist mucous membranes Resp Effort & Inspection: normal respiratory effort and able to speak in complete sentences Auscultation: clear to auscultation bilaterally Neuro General: patient oriented x3 Extrem Other: Essentially patient has diffuse synovitis of her wrists, MCPs, PIP is, significant swelling, can hardly move her fingers or make a fist. Significant stiffness and pain moving her shoulders Bilateral ankle swelling and tenderness Bilateral diffuse MTP tenderness Results Reviewed Results Reviewed: 10/2023 MR/MR pelvis wo/w con IMPRESSION: * Normal uterus and ovaries. No evidence of uterine adenomyosis or endometriosis. * Small fat-containing left inguinal hernia. * There is stage 2 osteonecrosis of the anterosuperior left femoral head. * Mild edema-like signal change within the distal left iliopsoas is consistent with mild muscle strain. Assessment & Plan Assessment & Plan (1) Seropositive rheumatoid arthritis: Comment: RF++CCP++ On prednisone throughout until it was discontinued 10/2023 due to left femur avascular necrosis methotrexate and hydroxychloroquine ?2019 Xeljanz 05/2020-08/2020(ineffective) 2020 methotrexate and Humira(HCQ stopped - ?vision changes). 06/2022 Humira stopped due to poor repsonse 06/2022 methotrexate and Actemra 12/2022: Actemra stopped by the patient. She had some leg swelling as well. 03/10/2023 and 03/24/23: 1 g on each day rituximab administered Olumiant 08/2023 effective Leflunomide added 01/2024 ineffective and caused twitching Code(s): M05.9 - Rheumatoid arthritis with rheumatoid factor, unspecified Category: Medical Plan: This is a 48-year-old female with seropositive nodular RA who presents for follow-up. She is on methotrexate 25 mg p.o. weekly, Olumiant 2 mg daily. She could not tolerate leflunomide. On exam she has significant synovitis affecting numerous joints. Inflammatory markers are significantly elevated. We will need to change DMARDs. Discussed risks and benefits of Orencia infusion. Patient agreed to proceed. Will start prior authorization for Orencia infusion. Patient to discontinue Olumiant Continue methotrexate 25 mg p.o. weekly Given significant synovitis, I gave her an intramuscular shot of Kenalog 40 mg in clinic today Follow-up in 2-3 months (2) long term care pharmacist methotrexate user: Code(s): Z79.899 - Other ocean transportation intermediary (current) drug therapy Category: Medical Plan: Monitor safety labs (3) High risk medication use: Code(s): Z79.899 - Other ocean transportation intermediary (current) drug therapy Category: Medical Plan: Advised patient to call the clinic if she develops any signs of fever or infection (4) Systemic lupus erythematosus: Comment: January 2022: ++DsDNA positive. Rheumatoid factor and CCP antibody markedly positive. This looks more like picture of seropositive RA. Code(s): M32.9 - Systemic lupus erythematosus, unspecified Category: Medical Qualifiers: Systemic lupus erythematosus type: unspecified Systemic lupus erythematosus organ involvement: unspecified Qualified Code(s): M32.9 - Systemic lupus erythematosus, unspecified Plan: I do not see any features of active SLE. She has a positive dsDNA with no specific features of lupus. Will continue to monitor patient for development of features of active SLE. (5) Avascular necrosis of left femoral head: Code(s): M87.052 - Idiopathic aseptic necrosis of left femur Category: Medical Plan: Continue to follow-up with orthopedics Plan I spent 47 minutes reviewing patient's chart, evaluating patient, ordering diagnostic workup, counseling patient and documenting in the chart Orders: Orders Complete Blood Count Auto Diff 2 Months M05.9 - Rheumatoid arthritis with rheumatoid factor, unspecified, Z79.899 - Other fpc (current) drug therapy Erythrocyte Sedimentation Rate 2 Months M05.9 - Rheumatoid arthritis with rheumatoid factor, unspecified, Z79.899 - Other fpc (current) drug therapy Comprehensive Met. Panel 2 Months M05.9 - Rheumatoid arthritis with rheumatoid factor, unspecified, Z79.899 - Other fpc (current) drug therapy C Reactive Protein 2 Months M05.9 - Rheumatoid arthritis with rheumatoid factor, unspecified, Z79.899 - Other fpc (current) drug therapy Referrals Infusion Center Notification M05.9 - Rheumatoid arthritis with rheumatoid factor, unspecified Medications: Discontinued leflunomide Discontinued Reason: Doctor's Order 20 mg PO DAILY 30 tabs 0RF Coding Level of Care Code Est Pt Level 5 (63075) Diagnoses Seropositive rheumatoid arthritis M05.9 retirement 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 Avascular necrosis of left femoral head M87.052
[2024-04-23 14:34] VITALS: BP 128/74; PULSE 85; O2SAT 99; BMI 31.9
== END 2024-04-23 15:24 | disposition home or self-care (01) ==
PROVIDERS: PCP General Practice; Visit Provider Student in an Organized Health Care Education/Training Program
DX: M05.9 Rheumatoid arthritis with rheumatoid factor, unspecified (principal); Z79.899 Other long term (current) drug therapy; M32.9 Systemic lupus erythematosus, unspecified; M87.052 Idiopathic aseptic necrosis of left femur
CPT/HCPCS: 99215

== ENCOUNTER 2024-04-24 09:29 | Emergency (ER) | payer MEDICAID, SELFPAY ==
--- NOTE | ~2024-04-24 | US_ITS ---
EXAMINATION: US TRIPLEX UPPER EXTREMITY, RIGHT CLINICAL INFORMATION: RUE swelling COMPARISON: Right upper extremity venous duplex 06/22/2023 TECHNIQUE: Color-flow triplex imaging with spectral analysis and compression Doppler was performed on the right upper extremity. FINDINGS: The right internal jugular, subclavian, and axillary veins are patent and free of thrombus. The imaged segment of the right brachiocephalic vein is patent. Spectral doppler waveforms are normal. The brachial, basilic, cephalic, radial, and ulnar veins are patent and compressible. US/US venous duplex UE RT IMPRESSION: No evidence of deep venous thrombosis involving the right upper extremity. Electronically signed by: Nilda Tabares DO 04/24/2024 02:17 PM EDT
[2024-04-24 10:49] VITALS: BP 137/80; PULSE 79; RESP 18; TEMP 36.7; O2SAT 97; BMI 31.8
[2024-04-24 11:18] LABS: MANUAL DIFF FLAG NO
[2024-04-24 11:20] LABS: Basophils Percent Auto 0.3 % (0-2); Eosinophils Percent Auto 0.5 % (0-4); Hematocrit 31.6 % (37.0-47.0); Hemoglobin 10.5 g/dl (12.0-16.0); Imm Gran Abs Auto 0.01 X10*3/uL (0.00-0.03); Imm Gran Pct Auto 0.2 % (0.0-0.4); Lymphocytes Absolute Auto 1.5 X10*3/uL (1.2-4.9); Lymphocytes Percent Auto 24.2 % (20-40); Mean Corpuscular HGB Conc 33.2 g/dl (31.0-35.0); Mean Corpuscular Hemoglobin 30.6 pg (27.0-33.0); Mean Corpuscular Volume 92.1 fL (80.0-98.0); Mean Platelet Volume 9.8 fL (9.4-12.3); Monocytes Absolute Auto 0.3 X10*3/uL (0.1-1.2); Monocytes Percent Auto 4.6 % (2-11); Neutrophils Absolute Auto 4.3 x10*3/uL (2.0-8.3); Neutrophils Percent Auto 70.2 % (45-73); Platelet Count 358 X10*3/uL (160-400); Red Blood Count 3.43 X10*6/uL (4.20-5.50); Red Cell Distribution Width 14.6 % (11.0-16.0); White Blood Count 6.1 X10*3/uL (4.8-10.8)
[2024-04-24 11:28] LABS: D Dimer High Sensitivity 787 NG/ML
[2024-04-24 11:42] LABS: Alanine Aminotransferase 9 U/L (0-31); Alkaline Phosphatase 86 U/L (39-117); Anion Gap 12 (12-20); Aspartate Amino Transferase 16 U/L (5-31); Bilirubin Total 0.2 mg/dL (0.0-1.0); Blood Urea Nitrogen 10 mg/dL (9-16); Calcium 9.6 mg/dL (8.4-10.2); Carbon Dioxide 23 mmol/L (22-29); Chloride 108 mmol/L (96-108); Creatinine Clr Calc Pharmacy 113.5; Estimated Glomerular Filt Rate > 60; Glucose Random 96 mg/dL (60-115); Potassium 3.6 mmol/L (3.3-5.1); Sodium 139 mmol/L (135-145); Total Protein 8.9 g/dL (6.5-8.0)
--- NOTE | 2024-04-24 12:20 | ED_ITS ---
HPI - Extremity Problem General Chief complaint: Extremity Injury, Upper Stated complaint: Swelling/pain R hand Time Seen by Provider: 04/24/24 11:43 Source: patient, RN notes reviewed and old records reviewed Mode of arrival: ambulatory History of Present Illness ED Provider: Padmaja Calvert PA-C HPI Narrative: 48-year-old female with a past medical history of seropositive rheumatoid arthritis, anxiety, depression, PAD, GERD, fibromyalgia, lupus, DVT on Eliquis, presenting to the ED complaining of bilateral upper extremity swelling > right hand x yesterday. Patient admits she saw her power line installer and repairer yesterday and received cortisone injection to LUE without improvement. Reports decreased ROM to digits secondary to pain/swelling. Patient currently on ibuprofen, acetaminophen, methotrexate, folic acid, gabapentin, and Percocet. Denies fever, chills, injury/trauma or fall, SOB, numbness/tingling. Reports compliance with her Eliquis. Patient not currently on prednisone, discontinued due to avascular necrosis Related Data Home Medications ?Medication ?Instructions ?Recorded ?Confirmed ferrous sulfate 325 mg (65 mg 1 tab PO DAILY 10/02/21 03/22/24 iron) tablet (FeroSul) apixaban 5 mg tablet (Eliquis) 5 mg PO BID 09/22/22 03/22/24 alprazolam 1 mg tablet 1 mg PO BEDTIME PRN Anxiety 12/10/22 03/22/24 chlorhexidine gluconate 0.12 % 15 ml PO DAILY PRN Bacteria 10/25/23 03/22/24 mouthwash albuterol sulfate 90 mcg/actuation 2 puff inhalation Q6H PRN Wheezing 02/20/24 03/22/24 aerosol inhaler ascorbic acid (vitamin C) 500 mg 1,000 mg PO DAILY 02/20/24 03/22/24 tablet (Vitamin C) cilostazol 100 mg tablet 100 mg PO BID 02/20/24 03/22/24 folic acid 1 mg tablet 1 mg PO DAILY PRN Folic Acid Levels 02/20/24 03/22/24 nicotine 21 mg/24 hr daily 1 patch transdermal DAILY 02/20/24 03/22/24 transdermal patch vitamin A 3,000 mcg (10,000 unit) 1 cap PO DAILY 02/20/24 03/22/24 capsule baricitinib 2 mg tablet (Olumiant) mg PO 03/22/24 03/22/24 sertraline 50 mg tablet (Zoloft) 75 mg PO DAILY 03/22/24 03/22/24 benztropine 0.5 mg tablet 0.5 mg PO DAILY 04/23/24 cetirizine 10 mg tablet 10 mg PO QAM neuropathic pain 04/23/24 diclofenac sodium 1 % topical gel 2 g topical QID 04/23/24 gabapentin 400 mg capsule mg PO 04/23/24 oxycodone-acetaminophen 7.5 mg-325 1 tab PO Q8H PRN severe pain 04/23/24 mg tablet risperidone 1 mg tablet mg PO 04/23/24 trazodone 150 mg tablet 150 mg PO BEDTIME PRN 04/23/24 umeclidinium 62.5 mcg/actuation 1 inh inhalation DAILY 04/23/24 blister powder for inhalation (Incruse Ellipta) ursodiol 250 mg tablet 250 mg PO 04/23/24 Previous Rx's ?Medication ?Instructions ?Recorded pantoprazole 40 mg tablet,delayed 40 mg PO DAILY #90 tabs 11/04/23 release cephalexin 500 mg tablet 500 mg PO QID 7 days #28 tabs 04/20/24 doxycycline hyclate 100 mg capsule 100 mg PO BID 7 days #14 caps 04/20/24 docusate sodium 100 mg capsule 100 mg PO BID #60 caps 04/23/24 (Colace) prednisone 20 mg tablet 40 mg (2 x 20 mg) PO DAILY 5 days 04/24/24 #10 tabs Allergies Allergy/AdvReac Type Severity Reaction Status Date / Time almond [ALMONDS] Allergy Severe ANAPHYLAXIS Verified 04/24/24 10:54 adhesive tape [ADHESIVE TAPE] Allergy Intermediate RASH Verified 04/24/24 10:54 morphine [MORPHINE] Allergy Intermediate GI UPSET, Verified 04/24/24 10:54 difficulty breathing leflunomide AdvReac Intermediate twitching Verified 04/24/24 10:54 tramadol [TRAMADOL] AdvReac Unknown NAUSEA & Verified 04/24/24 10:54 VOMITING Review of Systems 2 Review of Systems: Yes all other systems are reviewed and are negative Constitutional: Constitutional: Reports as per [facility] Past Medical History Attestation statement: The following information was validated with the patient. Source: old records reviewed Medical History Seropositive rheumatoid arthritis Skin lesion Anxiety Achilles tendinitis Superficial femoral artery occlusion Knee pain, left Depression Hx of peripheral pulmonary artery stenosis PAD (peripheral artery disease) History of chemotherapy Cancer of heart Bone cancer Lung cancer Bleeding hemorrhoid Degeneration, intervertebral disc, lumbar Chronic GERD Degeneration of intervertebral disc at C4-C5 level Osteoarthritis of spine with radiculopathy, lumbar region Fibromyalgia Esophageal dysphagia Vitamin D deficiency Systemic lupus erythematosus Seropositive rheumatoid arthritis Rheumatoid arthritis involving multiple sites Gallstones Stress incontinence in female Nocturia Urgency-frequency syndrome De Quervain's disease (tenosynovitis) Depressive disorder Acute arthritis Hodgkin disease Surgical History History of surgical removal of skin lesion (~07/13/23) History of angioplasty of vein History of biopsy H/O tubal ligation Hx of endoscopy Hx laparoscopic cholecystectomy Hx of colonoscopy History of esophagogastroduodenoscopy (EGD) History of repair of inguinal hernia History of lymph node dissection of left axilla Family History Family History Maternal Grandmother Ovarian cancer Social History Social History Household Members: Spouse Housing: Apartment Are you a primary aged or disabled care worker to a significant other at home: No Alcohol intake: never Comment: son at bedside Patient Tobacco Use Status: Current everyday Tobacco user Tobacco use type: Cigarette Cigarette Packs Per Day: 1 Cigarettes Per Day: 20.0 Substance Use Type: Marijuana Advance Directives: Yes Advance Directives on File: Yes Advance Directives Date on File: 02/24/24 service: No Current occupational status: disabled 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 Physical Exam 2 Vital Signs: Vital Signs: Last Vital Signs Temp 97.8 F 04/24/24 14:44 Pulse 80 04/24/24 14:44 Resp 16 04/24/24 14:44 BP 130/84 04/24/24 14:44 Pulse Ox 97 04/24/24 14:44 O2 Del Method Room Air 04/24/24 14:44 BMI result Body Mass Index 31.8 Const: General: cooperative, healthy appearing and no acute distress O rientation/consciousness: patient oriented x3 Limitations: no limitations HEENT: Head: Yes normal to inspection and Yes atraumatic Ears: hearing grossly normal bilaterally General nose exam: Normal external nose present Face and sinus: Yes normal facial exam Eyes: General: appearance normal, both eyes and all related structures EOM: EOMs intact bilaterally Neck: Neck: Yes normal visual inspection and Yes no meningeal signs Resp: Effort & Inspection: normal respiratory effort and no respiratory distress Cardio: Rate: regular rate Skin: Rashes: no rashes Wounds: no wounds Neuro: General: patient oriented x3, tone normal and no meningeal signs C ranial nerves: Yes CN's II-XII intact bilaterally Gait exam (Neuro): Normal gait present Extrem: Other: + bilateral upper extremity swelling and diffuse joint tenderness appreciated > RUE. Limited ROM to bilateral hands secondary to pain. Distal pulses intact. No erythema/warmth or crepitus. No LE pitting edema Course Course Course Narrative: -chronic anemia. CRP mildly elevated -D-dimer elevated > ultrasound ordered -consulted patient's power line installer and repairer, Dr. Elkins who recommended short course of prednisone until patient is set up on her new medication. Plan is for patient to be started on Orencia infusion -ESR elevated US venous duplex UE RT IMPRESSION: No evidence of deep venous thrombosis involving the right upper extremity. Results discussed with patient including worrisome signs and symptoms and strict return precautions, and when to return to the emergency department. They verbalized understanding and feel safe for discharge at this time. Medications Administered Discontinued Medications Generic Name Dose Route Start Last Admin Trade Name Freq PRN Reason Stop Dose Admin Ketorolac Tromethamine 30 mg 04/24/24 12:59 04/24/24 13:08 Ketorolac Tromethamine 30 Mg/Ml Vial IM 04/24/24 13:00 30 mg ONCE ONE Administration Oxycodone HCl 5 mg 04/24/24 14:36 04/24/24 14:42 Oxycodone Hcl Immed Release 5 Mg Tablet PO 04/24/24 14:37 5 mg ONCE ONE Administration Medical Decision Making Medical Decision Making [facility] Narrative: 48-year-old female with a past medical history of seropositive rheumatoid arthritis, anxiety, depression, PAD, GERD, fibromyalgia, lupus, DVT on Eliquis, presenting to the ED complaining of bilateral upper extremity swelling > right hand x yesterday. On exam vital signs stable, NAD, nontoxic appearing, physical exam as noted above. Concern for RA/SLE flare vs DVT. Low suspicion for PE at this time. Unlikely fracture. No evidence of cellulitis. Unlikely septic joint/arthritis Plan: Labs, D-dimer ordered in triage, ultrasound, pain control Please refer to course for remaining clinical decision making, interpretation of labs/imaging results, and discussions with consultants and/or family members. Differential Diagnosis Differential Diagnoses: The differential diagnosis associated with the presentation includes As above Admission/Observation Consideration of admission/observation: Escalation of care including admission/observation considered Consult Healthcare Provider Management of the patient was discussed with: Personal Care Aide (Rheumatology) Lab Data MDM Lab Attestation statement: I reviewed the patient's lab results. 04/24/24 11:14 04/24/24 11:14 Labs: Lab Results 04/24/24 Range/Units 11:14 WBC 6.1 (4.8-10.8) X10*3/uL RBC 3.43 L (4.20-5.50) X10*6/uL Hgb 10.5 L (12.0-16.0) g/dl Hct 31.6 L (37.0-47.0) % MCV 92.1 (80.0-98.0) fL MCH 30.6 (27.0-33.0) pg MCHC 33.2 (31.0-35.0) g/dl RDW 14.6 (11.0-16.0) % Plt Count 358 (160-400) X10*3/uL MPV 9.8 (9.4-12.3) fL Immature Gran % (Auto) 0.2 (0.0-0.4) % Neut % (Auto) 70.2 (45-73) % Lymph % (Auto) 24.2 (20-40) % [place] % (Auto) 4.6 (2-11) % Eos % (Auto) 0.5 (0-4) % Baso % (Auto) 0.3 (0-2) % Lymph # (Auto) 1.5 (1.2-4.9) X10*3/uL [place] # (Auto) 0.3 (0.1-1.2) X10*3/uL Eos # (Auto) 0.0 (0.0-0.4) X10*3/uL Baso # (Auto) 0.0 (0.0-0.2) X10*3/uL Abs Immat Gran (auto) 0.01 (0.00-0.03) X10*3/uL Absolute Neuts (auto) 4.3 (2.0-8.3) x10*3/uL Absolute Nucleated RBC 0.000 (0.0-0.012) X10*3/uL Nucleated RBC % (auto) 0.0 (0.0-0.2) /100WBC ESR 101 H (0-20) MM/HR D-Dimer High Sensitivty 787 NG/ML Sodium 139 (135-145) mmol/L Potassium 3.6 (3.3-5.1) mmol/L Chloride 108 (96-108) mmol/L Carbon Dioxide 23 (22-29) mmol/L Anion Gap 12 (12-20) BUN 10 (9-16) mg/dL Creatinine 0.69 (0.5-1.4) mg/dL Estim Creat Clear Calc 113.5 Estimated GFR > 60 Random Glucose 96 (60-115) mg/dL Calcium 9.6 (8.4-10.2) mg/dL Total Bilirubin 0.2 (0.0-1.0) mg/dL AST 16 (5-31) U/L ALT 9 (0-31) U/L Alkaline Phosphatase 86 (39-117) U/L C-Reactive Protein 4.99 H (< or = 0.50) mg/dL Total Protein 8.9 H (6.5-8.0) g/dL Albumin 4.0 (3.5-5.0) g/dL Independent Interpretation I performed an independent interpretation of an: Ultrasound Radiology Impression Discussion of test interpretation with radiology: I have reviewed the radiologist's reading. External Record Review External record reviewed: Inpatient record, Office record, Outpatient record, Prior outpatient labs, Prior outpatient radiology, Primary care record and Outside ED record Tests considered The following testing was considered but not selected: As above Prescription Management I considered prescription management with: Pain Medication Chronic Conditions Patient?s care impacted by: Other (Rheumatoid arthritis, lupus) Discharge Plan Discharge Clinical Impression: Rheumatoid arthritis flare Patient Disposition: Home, Self-Care Instructions: Rheumatoid Arthritis (ED) Additional Instructions: Your blood work shows elevation in her inflammatory markers Your ultrasound is negative for blood clot Continue home prescribed medications In addition take prednisone for the next 5 days as prescribed Please close follow-up with your power line installer and repairer. If symptoms persist or worsen her pain is unbearable return to the ED Prescriptions: New prednisone 20 mg tablet 40 mg PO DAILY 5 Days Qty: 10 0RF No Action ferrous sulfate [FeroSul] 325 mg (65 mg iron) tablet 1 tab PO DAILY cephalexin 500 mg tablet 500 mg PO QID 7 Days Qty: 28 0RF doxycycline hyclate 100 mg capsule 100 mg PO BID 7 Days Qty: 14 0RF cilostazol 100 mg tablet 100 mg PO BID albuterol sulfate 90 mcg/actuation Hfa Aerosol Inhaler 2 puff INHALATION Q6H PRN (Reason: Wheezing) vitamin A 3,000 mcg (10,000 unit) capsule 1 cap PO DAILY ascorbic acid (vitamin C) [Vitamin C] 500 mg tablet 1,000 mg PO DAILY folic acid 1 mg tablet 1 mg PO DAILY PRN (Reason: Folic Acid Levels) nicotine 21 mg/24 hr Patch 24 Hour 1 patch TRANSDERMAL DAILY alprazolam 1 mg tablet 1 mg PO BEDTIME PRN (Reason: Anxiety) Eliquis 5 mg tablet 5 mg PO BID chlorhexidine gluconate 0.12 % mouthwash 15 ml PO DAILY PRN (Reason: Bacteria) pantoprazole 40 mg tablet,delayed release (DR/EC) 40 mg PO DAILY Qty: 90 1RF Olumiant 2 mg tablet PO sertraline [Zoloft] 50 mg tablet 75 mg PO DAILY risperidone 1 mg tablet PO trazodone 150 mg tablet 150 mg PO BEDTIME PRN benztropine 0.5 mg tablet 0.5 mg PO DAILY ursodiol 250 mg tablet 250 mg PO oxycodone-acetaminophen 7.5-325 mg tablet 1 tab PO Q8H PRN (Reason: severe pain) Incruse Ellipta 62.5 mcg/actuation blister with device 1 inh inhalation DAILY gabapentin 400 mg capsule PO diclofenac sodium 1 % gel 2 g topical QID cetirizine 10 mg tablet 10 mg PO QAM docusate sodium [Colace] 100 mg capsule 100 mg PO BID Qty: 60 3RF Referrals: Mackenzie Estrada MD [Primary Care Provider] - 5 days Simon Elkins MD [Physician] - Interventions: ED Discharge Assessment Last Done: 04/24/24 14:44 Discharge Date/Time: 04/24/24 14:46 Print Language: Romansh
[2024-04-24 12:49] LABS: C Reactive Protein 4.99 mg/dL (< or = 0.50)
[2024-04-24] MEDS: Ketorolac Tromethamine 30 MG/ML VIAL IM (13:08)
[2024-04-24 13:27] LABS: Erythrocyte Sedimentation Rate 101 MM/HR (0-20)
[2024-04-24] MEDS: oxyCODONE HCl Immed Release 5 MG TABLET PO (14:42)
[2024-04-24 14:44] VITALS: BP 130/84; PULSE 80; RESP 16; TEMP 36.6; O2SAT 97
== END 2024-04-24 14:46 | disposition home or self-care (01) ==
PROVIDERS: Physician Assistant; Emergency Provider Emergency Medicine; PCP General Practice
DX: R60.0 Localized edema (principal); M06.89 Other specified rheumatoid arthritis, multiple sites; Z86.718 Personal history of other venous thrombosis and embolism; Z79.01 Long term (current) use of anticoagulants; Z79.899 Other long term (current) drug therapy; F17.210 Nicotine dependence, cigarettes, uncomplicated
CPT/HCPCS: 36415; 80053; 85025; 85379; 85652; 86140; 93971; 96372; 99283; 99284; J1885

== ENCOUNTER 2024-05-22 07:53 | Emergency (ER) | payer MEDICAID, SELFPAY ==
--- NOTE | ~2024-05-22 | XR_ITS ---
EXAMINATION: XR LUMBOSACRAL SPINE CLINICAL INFORMATION: Low back pain COMPARISON: None available. TECHNIQUE: Three views of the lumbosacral spine. FINDINGS: Vertebral body height and alignment are maintained. Degenerative disc disease is present at L5-S1 with mild disc space narrowing and endplate sclerosis as well as anterior and posterior osteophytes. There are also mild hypertrophic changes of posterior elements at the lumbosacral level. Surgical clips are noted in the right upper quadrant of the abdomen. XR/XR lumbar spine 2-3V IMPRESSION: Degenerative disc disease at L5-S1. Electronically signed by: Arturo Walker MD 05/22/2024 09:38 AM EDT
[2024-05-22 08:01] VITALS: BP 118/77; PULSE 88; RESP 16; TEMP 36.4; O2SAT 100; BMI 32.7
[2024-05-22] MEDS: Cyclobenzaprine HCl 10 MG TABLET PO (10:17)
[2024-05-22] MEDS: Lidocaine 4 % Patch ADH..PATCH 1 PATCH TRANSDERMA (10:17)
[2024-05-22] MEDS: Acetaminophen 325 MG TABLET 650 MG PO (10:17)
--- NOTE | 2024-05-22 10:41 | ED.LOWEXIN ---
HPI - Extremity Injury (Lower) General Chief Complaint: Extremity Injury, Lower Stated Complaint: Leg pain Time Seen by Provider: 05/22/24 09:05 Source: patient, RN notes reviewed and old records reviewed Mode of arrival: ambulatory History of Present Illness ED Provider: Padmaja Calvert PA-C HPI Narrative: 48-year-old female with a past medical history of seropositive rheumatoid arthritis, anxiety, depression, PAD, GERD, fibromyalgia, lupus, DVT on Eliquis, presenting to the ED complaining of right-sided buttock pain radiating down RLE 0200. Admits pain worse with ambulation. Denies direct injury/trauma or fall. Admits since been digging Percocet at home without relief. Denies numbness, weakness, incontinence, retention, abdominal pain, dysuria/hematuria. Reports compliance with anticoagulation. Related Data Home Medications ?Medication ?Instructions ?Recorded ?Confirmed ferrous sulfate 325 mg (65 mg 1 tab PO DAILY 10/02/21 03/22/24 iron) tablet (FeroSul) apixaban 5 mg tablet (Eliquis) 5 mg PO BID 09/22/22 03/22/24 alprazolam 1 mg tablet 1 mg PO BEDTIME PRN Anxiety 12/10/22 03/22/24 chlorhexidine gluconate 0.12 % 15 ml PO DAILY PRN Bacteria 10/25/23 03/22/24 mouthwash albuterol sulfate 90 mcg/actuation 2 puff inhalation Q6H PRN Wheezing 02/20/24 03/22/24 aerosol inhaler ascorbic acid (vitamin C) 500 mg 1,000 mg PO DAILY 02/20/24 03/22/24 tablet (Vitamin C) cilostazol 100 mg tablet 100 mg PO BID 02/20/24 03/22/24 folic acid 1 mg tablet 1 mg PO DAILY PRN Folic Acid Levels 02/20/24 03/22/24 nicotine 21 mg/24 hr daily 1 patch transdermal DAILY 02/20/24 03/22/24 transdermal patch vitamin A 3,000 mcg (10,000 unit) 1 cap PO DAILY 02/20/24 03/22/24 capsule baricitinib 2 mg tablet (Olumiant) mg PO 03/22/24 03/22/24 sertraline 50 mg tablet (Zoloft) 75 mg PO DAILY 03/22/24 03/22/24 benztropine 0.5 mg tablet 0.5 mg PO DAILY 04/23/24 cetirizine 10 mg tablet 10 mg PO QAM neuropathic pain 04/23/24 diclofenac sodium 1 % topical gel 2 g topical QID 04/23/24 gabapentin 400 mg capsule mg PO 04/23/24 oxycodone-acetaminophen 7.5 mg-325 1 tab PO Q8H PRN severe pain 04/23/24 mg tablet risperidone 1 mg tablet mg PO 04/23/24 trazodone 150 mg tablet 150 mg PO BEDTIME PRN 04/23/24 umeclidinium 62.5 mcg/actuation 1 inh inhalation DAILY 04/23/24 blister powder for inhalation (Incruse Ellipta) ursodiol 250 mg tablet 250 mg PO 04/23/24 Previous Rx's ?Medication ?Instructions ?Recorded pantoprazole 40 mg tablet,delayed 40 mg PO DAILY #90 tabs 11/04/23 release cephalexin 500 mg tablet 500 mg PO QID 7 days #28 tabs 04/20/24 doxycycline hyclate 100 mg capsule 100 mg PO BID 7 days #14 caps 04/20/24 docusate sodium 100 mg capsule 100 mg PO BID #60 caps 04/23/24 (Colace) prednisone 20 mg tablet 40 mg (2 x 20 mg) PO DAILY 5 days 04/24/24 #10 tabs cyclobenzaprine 5 mg tablet 5 mg PO Q8H PRN pain (scale score 05/22/24 7-10) 5 days #14 tabs lidocaine 5 % topical patch 1 patch topical DAILY PRN pain #30 05/22/24 (Lidoderm) ea Allergies Allergy/AdvReac Type Severity Reaction Status Date / Time almond [ALMONDS] Allergy Severe ANAPHYLAXIS Verified 05/22/24 08:02 adhesive tape [ADHESIVE TAPE] Allergy Intermediate RASH Verified 05/22/24 08:02 morphine [MORPHINE] Allergy Intermediate GI UPSET, Verified 05/22/24 08:02 difficulty breathing leflunomide AdvReac Intermediate twitching Verified 05/22/24 08:02 tramadol [TRAMADOL] AdvReac Unknown NAUSEA & Verified 05/22/24 08:02 VOMITING Review of Systems Review of Systems: Yes all other systems are reviewed and are negative Constitutional: Constitutional: Reports as per [facility] Past Medical History Attestation statement: The following information was validated with the patient. Source: old records reviewed Medical History Seropositive rheumatoid arthritis Skin lesion Anxiety Achilles tendinitis Superficial femoral artery occlusion Knee pain, left Depression Hx of peripheral pulmonary artery stenosis PAD (peripheral artery disease) History of chemotherapy Cancer of heart Bone cancer Lung cancer Bleeding hemorrhoid Degeneration, intervertebral disc, lumbar Chronic GERD Degeneration of intervertebral disc at C4-C5 level Osteoarthritis of spine with radiculopathy, lumbar region Fibromyalgia Esophageal dysphagia Vitamin D deficiency Systemic lupus erythematosus Seropositive rheumatoid arthritis Rheumatoid arthritis involving multiple sites Gallstones Stress incontinence in female Nocturia Urgency-frequency syndrome De Quervain's disease (tenosynovitis) Depressive disorder Acute arthritis Hodgkin disease Surgical History History of surgical removal of skin lesion (~07/13/23) History of angioplasty of vein History of biopsy H/O tubal ligation Hx of endoscopy Hx laparoscopic cholecystectomy Hx of colonoscopy History of esophagogastroduodenoscopy (EGD) History of repair of inguinal hernia History of lymph node dissection of left axilla Family History Family History Maternal Grandmother Ovarian cancer Social History Social History Household Members: Spouse Housing: Apartment Are you a primary home health care social worker to a significant other at home: No Alcohol intake: never Comment: son at bedside Patient Tobacco Use Status: Current everyday Tobacco user Tobacco use type: Cigarette Cigarette Packs Per Day: 1 Cigarettes Per Day: 20.0 Substance Use Type: Marijuana Advance Directives: Yes Advance Directives on File: Yes Advance Directives Date on File: 02/24/24 Do you have a plan to hurt others: No Plan service: No Current occupational status: disabled 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 Physical Exam Vital Signs: Vital Signs: Last Vital Signs Temp 97.6 F 05/22/24 11:29 Pulse 88 05/22/24 11:29 Resp 16 05/22/24 11:29 BP 118/77 05/22/24 11:29 Pulse Ox 100 05/22/24 11:29 O2 Del Method Room Air 05/22/24 11:29 BMI result Body Mass Index 32.7 Const: General: cooperative, healthy appearing and no acute distress Orientation/consciousness: patient oriented x3 Limitations: no limitations HEENT: Head: Yes normal to inspection and Yes atraumatic Ears: hearing grossly normal bilaterally General nose exam: Normal external nose present Face and sinus: Yes normal facial exam Eyes: General: appearance normal, both eyes and all related structures EOM: EOMs intact bilaterally Neck: Neck: Yes normal visual inspection and Yes no meningeal signs Resp: Effort & Inspection: normal respiratory effort and no respiratory distress Cardio: Rate: regular rate GI: Inspection: Yes normal to inspection Palpation (GI): Soft to palpation, nontender, no guarding and not rigid : General: Yes no CVA tenderness Back/Spine/Pelvis: Other: No midline cervical/thoracic/lumbar spinous tenderness/step-off or deformity. + right buttock with reproducible tenderness. No rash/erythema. Back: no CVA tenderness Skin: Rashes: no rashes Wounds: no wounds Neuro: Other: Strength intact throughout. No saddle anesthesia. Sensation intact to light touch. Neurovascular intact distally General: patient oriented x3, gait normal, tone normal, moves all extremities and no meningeal signs Cranial nerves: Yes CN's II-XII intact bilaterally Gait exam (Neuro): Normal gait present Motor exam (neuro): 5/5 motor strength present throughout Extrem: General: Yes normal to inspection Course Course Course Narrative: 1052--XR lumbar spine 2-3V IMPRESSION: Degenerative disc disease at L5-S1. Results discussed with patient including worrisome signs and symptoms and strict return precautions, and when to return to the emergency department. They verbalized understanding and feel safe for discharge at this time. Medications Administered Discontinued Medications Generic Name Dose Route Start Last Admin Trade Name Starla PRN Reason Stop Dose Admin Acetaminophen 650 mg 05/22/24 09:51 05/22/24 10:17 Acetaminophen 325 Mg Tablet PO 05/22/24 09:52 650 mg ONCE ONE Administration Cyclobenzaprine HCl 10 mg 05/22/24 09:51 05/22/24 10:17 Cyclobenzaprine Hcl 10 Mg Tablet PO 05/22/24 09:52 10 mg ONCE ONE Administration Lidocaine 1 patch 05/22/24 09:51 05/22/24 10:17 Lidocaine 4 % Patch Adh..Patch TRANSDERMA 05/22/24 09:52 1 patch ONCE ONE Administration Protocol Medical Decision Making Medical Decision Making MDM Narrative: 48-year-old female with a past medical history of seropositive rheumatoid arthritis, anxiety, depression, PAD, GERD, fibromyalgia, lupus, DVT on Eliquis, presenting to the ED complaining of right-sided buttock pain radiating down RLE 0200. On exam vital signs stable, NAD, nontoxic appearing, no midline spinous tenderness or red flag symptoms. Reproducible right buttock tenderness. Neurovascularly intact distally. No red flag symptoms. Ambulating with steady gait. Concern for sciatica vs sacroiliitis. Lower suspicion for herniated disc, fracture, cauda equina, cord compression, epidural abscess Plan: Pain control, x-rays ordered in triage Please refer to course for remaining clinical decision making, interpretation of labs/imaging results, and discussions with consultants and/or family members. Differential Diagnosis Differential Diagnoses: The differential diagnosis associated with the presentation includes As above Independent Interpretation I performed an independent interpretation of an: Plain X-Ray Radiology Impression Discussion of test interpretation with radiology: I have reviewed the radiologist's reading. External Record Review External record reviewed: Inpatient record, Office record, Outpatient record, Prior outpatient labs, Prior outpatient radiology, Primary care record and Outside ED record Tests considered The following testing was considered but not selected: As above Prescription Management I considered prescription management with: Pain Medication Chronic Conditions Patient?s care impacted by: Other Social Determinants Patient?s care significantly limited by Social Determinants of Health including: Inadequate housing, Low income, Problems related to primary support group, Unemployment and Other Social Determinant of Health Discharge Plan Discharge Clinical Impression: Sciatica Patient Disposition: Home, Self-Care Instructions: Sciatica (ED) Additional Instructions: Your pain is likely musculoskeletal. Your x-ray shows degenerative changes consistent with arthritis which is likely the cause of her pain Flexeril is a muscle relaxer, take at night as it makes you drowsy, do not drive, drink alcohol, or operate machinery while taking it Lidoderm patches are numbing patches, apply to painful area In addition take Tylenol at home If symptoms persist or worsen, pain becomes unbearable, you developed urinary retention or incontinence, or weakness return to the ED Prescriptions: New lidocaine [Lidoderm] 5 % adhesive patch,medicated 1 patch topical DAILY MDD remove after 12 hours PRN (Reason: pain) Qty: 30 0RF Rx Instructions: leave on most painful area for up to 12 hrs cyclobenzaprine 5 mg tablet 5 mg PO Q8H PRN (Reason: pain (scale score 7-10)) 5 Days Qty: 14 0RF No Action ferrous sulfate [FeroSul] 325 mg (65 mg iron) tablet 1 tab PO DAILY cephalexin 500 mg tablet 500 mg PO QID 7 Days Qty: 28 0RF doxycycline hyclate 100 mg capsule 100 mg PO BID 7 Days Qty: 14 0RF prednisone 20 mg tablet 40 mg PO DAILY 5 Days Qty: 10 0RF cilostazol 100 mg tablet 100 mg PO BID albuterol sulfate 90 mcg/actuation Hfa Aerosol Inhaler 2 puff INHALATION Q6H PRN (Reason: Wheezing) vitamin A 3,000 mcg (10,000 unit) capsule 1 cap PO DAILY ascorbic acid (vitamin C) [Vitamin C] 500 mg tablet 1,000 mg PO DAILY folic acid 1 mg tablet 1 mg PO DAILY PRN (Reason: Folic Acid Levels) nicotine 21 mg/24 hr Patch 24 Hour 1 patch TRANSDERMAL DAILY alprazolam 1 mg tablet 1 mg PO BEDTIME PRN (Reason: Anxiety) Eliquis 5 mg tablet 5 mg PO BID chlorhexidine gluconate 0.12 % mouthwash 15 ml PO DAILY PRN (Reason: Bacteria) pantoprazole 40 mg tablet,delayed release (DR/EC) 40 mg PO DAILY Qty: 90 1RF Olumiant 2 mg tablet PO sertraline [Zoloft] 50 mg tablet 75 mg PO DAILY risperidone 1 mg tablet PO trazodone 150 mg tablet 150 mg PO BEDTIME PRN benztropine 0.5 mg tablet 0.5 mg PO DAILY ursodiol 250 mg tablet 250 mg PO oxycodone-acetaminophen 7.5-325 mg tablet 1 tab PO Q8H PRN (Reason: severe pain) Incruse Ellipta 62.5 mcg/actuation blister with device 1 inh inhalation DAILY gabapentin 400 mg capsule PO diclofenac sodium 1 % gel 2 g topical QID cetirizine 10 mg tablet 10 mg PO QAM docusate sodium [Colace] 100 mg capsule 100 mg PO BID Qty: 60 3RF Referrals: Mackenzie Estrada MD [Primary Care Provider] - 1 week Interventions: ED Discharge Assessment Last Done: 05/22/24 11:29 Discharge Date/Time: 05/22/24 11:29 Print Language: Macedonian
[2024-05-22 11:29] VITALS: BP 118/77; PULSE 88; RESP 16; TEMP 36.4; O2SAT 100
== END 2024-05-22 11:29 | disposition home or self-care (01) ==
PROVIDERS: Emergency Provider Emergency Medicine; PCP General Practice
DX: M54.41 Lumbago with sciatica, right side (principal); Z86.718 Personal history of other venous thrombosis and embolism; Z79.01 Long term (current) use of anticoagulants
CPT/HCPCS: 72100; 99283

== ENCOUNTER 2024-05-26 14:07 | Inpatient (IN) | payer MEDICAID, SELFPAY ==
[2024-05-26] VITALS (14 sets, daily range): BP systolic 102–167; BP diastolic 64–97; PULSE 66–95; RESP 13–20; TEMP 36.4–36.9; O2SAT 95–100; BMI 32.3; BMI 32.9
--- NOTE | ~2024-05-26 | XR_ITS ---
EXAMINATION: XR CHEST CLINICAL INFORMATION: Anterior chest wall pain COMPARISON: Chest x-ray on 04/13/2024 TECHNIQUE: 2 views of the chest were obtained. FINDINGS: No significant abnormality is noted involving the heart, lungs, mediastinum, bony thorax or soft tissues. XR/XR chest 2V IMPRESSION: Unremarkable examination. Electronically signed by: Trinh Bergman MD 05/26/2024 04:46 PM EDT RP
--- NOTE | 2024-05-26 14:14 | ECG_ITS ---
Test Reason : chest pain Blood Pressure : / mmHG Vent. Rate : 086 BPM Atrial Rate : 086 BPM P-R Int : 162 ms QRS Dur : 108 ms QT Int : 370 ms P-R-T Axes : 060 -64 079 degrees QTc Int : 442 ms Normal sinus rhythm Left anterior fascicular block Left ventricular hypertrophy with repolarization abnormality ( R in aVL , Moodus product ) Cannot rule out Septal infarct , age undetermined Abnormal ECG When compared with ECG of 20-APR-2024 05:27, Minimal criteria for Septal infarct are now Present Referred By: Treasure Clemons Electronically Signed By:Ruddy Larios
--- NOTE | 2024-05-26 14:27 | ED.CHESTPAIN ---
HPI - Chest Pain General Chief Complaint: Chest Pain Stated Complaint: chest pain Time Seen by Provider: 05/26/24 16:00 History of Present Illness ED Provider: Halima WESLEY narrative: The patient is a 48-year-old female with a history of lupus. She also has a history of Hodgkin's disease and has received chemotherapy. The patient says that over the last few days she has had some pressure-like chest pain intermittently. Today, couple of hours prior to arrival, the pain came and was much more uncomfortable and persistent than it had been before today. She took a taxi to the hospital. She describes a pressure-like discomfort in her mid chest. Radius left jaw. She has had nausea but no sweating or vomiting. No shortness of breath. She has a history of a DVT in the right leg and has been on apixaban. She last took apixaban yesterday evening. Related Data Home Medications ?Medication ?Instructions ?Recorded ?Confirmed ferrous sulfate 325 mg (65 mg 1 tab PO DAILY 10/02/21 03/22/24 iron) tablet (FeroSul) apixaban 5 mg tablet (Eliquis) 5 mg PO BID 09/22/22 03/22/24 alprazolam 1 mg tablet 1 mg PO BEDTIME PRN Anxiety 12/10/22 03/22/24 chlorhexidine gluconate 0.12 % 15 ml PO DAILY PRN Bacteria 10/25/23 03/22/24 mouthwash albuterol sulfate 90 mcg/actuation 2 puff inhalation Q6H PRN Wheezing 02/20/24 03/22/24 aerosol inhaler ascorbic acid (vitamin C) 500 mg 1,000 mg PO DAILY 02/20/24 03/22/24 tablet (Vitamin C) cilostazol 100 mg tablet 100 mg PO BID 02/20/24 03/22/24 folic acid 1 mg tablet 1 mg PO DAILY PRN Folic Acid Levels 02/20/24 03/22/24 nicotine 21 mg/24 hr daily 1 patch transdermal DAILY 02/20/24 03/22/24 transdermal patch vitamin A 3,000 mcg (10,000 unit) 1 cap PO DAILY 02/20/24 03/22/24 capsule baricitinib 2 mg tablet (Olumiant) mg PO 03/22/24 03/22/24 sertraline 50 mg tablet (Zoloft) 75 mg PO DAILY 03/22/24 03/22/24 benztropine 0.5 mg tablet 0.5 mg PO DAILY 04/23/24 cetirizine 10 mg tablet 10 mg PO QAM neuropathic pain 04/23/24 diclofenac sodium 1 % topical gel 2 g topical QID 04/23/24 gabapentin 400 mg capsule mg PO 04/23/24 oxycodone-acetaminophen 7.5 mg-325 1 tab PO Q8H PRN severe pain 04/23/24 mg tablet risperidone 1 mg tablet mg PO 04/23/24 trazodone 150 mg tablet 150 mg PO BEDTIME PRN 04/23/24 umeclidinium 62.5 mcg/actuation 1 inh inhalation DAILY 04/23/24 blister powder for inhalation (Incruse Ellipta) ursodiol 250 mg tablet 250 mg PO 04/23/24 Previous Rx's ?Medication ?Instructions ?Recorded pantoprazole 40 mg tablet,delayed 40 mg PO DAILY #90 tabs 11/04/23 release cephalexin 500 mg tablet 500 mg PO QID 7 days #28 tabs 04/20/24 doxycycline hyclate 100 mg capsule 100 mg PO BID 7 days #14 caps 04/20/24 docusate sodium 100 mg capsule 100 mg PO BID #60 caps 04/23/24 (Colace) prednisone 20 mg tablet 40 mg (2 x 20 mg) PO DAILY 5 days 04/24/24 #10 tabs cyclobenzaprine 5 mg tablet 5 mg PO Q8H PRN pain (scale score 05/22/24 7-10) 5 days #14 tabs lidocaine 5 % topical patch 1 patch topical DAILY PRN pain #30 05/22/24 (Lidoderm) ea Allergies Allergy/AdvReac Type Severity Reaction Status Date / Time almond [ALMONDS] Allergy Severe ANAPHYLAXIS Verified 05/26/24 14:33 adhesive tape [ADHESIVE TAPE] Allergy Intermediate RASH Verified 05/26/24 14:33 morphine [MORPHINE] Allergy Intermediate GI UPSET, Verified 05/26/24 14:33 difficulty breathing leflunomide AdvReac Intermediate twitching Verified 05/26/24 14:33 tramadol [TRAMADOL] AdvReac Unknown NAUSEA & Verified 05/26/24 14:33 VOMITING Review of Systems Review of Systems: Yes all other systems are reviewed and are negative PMFSH Past Medical History Medical History Seropositive rheumatoid arthritis Skin lesion Anxiety Achilles tendinitis Superficial femoral artery occlusion Knee pain, left Depression Hx of peripheral pulmonary artery stenosis PAD (peripheral artery disease) History of chemotherapy Cancer of heart Bone cancer Lung cancer Bleeding hemorrhoid Degeneration, intervertebral disc, lumbar Chronic GERD Degeneration of intervertebral disc at C4-C5 level Osteoarthritis of spine with radiculopathy, lumbar region Fibromyalgia Esophageal dysphagia Vitamin D deficiency Systemic lupus erythematosus Seropositive rheumatoid arthritis Rheumatoid arthritis involving multiple sites Gallstones Stress incontinence in female Nocturia Urgency-frequency syndrome De Quervain's disease (tenosynovitis) Depressive disorder Acute arthritis Hodgkin disease Surgical History History of surgical removal of skin lesion (~07/13/23) History of angioplasty of vein History of biopsy H/O tubal ligation Hx of endoscopy Hx laparoscopic cholecystectomy Hx of colonoscopy History of esophagogastroduodenoscopy (EGD) History of repair of inguinal hernia History of lymph node dissection of left axilla Family History Family History Maternal Grandmother Ovarian cancer Social History Social History Household Members: Spouse Housing: Apartment Are you a primary aged or disabled care worker to a significant other at home: No Alcohol intake: never Comment: son at bedside Patient Tobacco Use Status: Current everyday Tobacco user Tobacco use type: Cigarette Cigarette Packs Per Day: 1 Cigarettes Per Day: 20.0 Smoked in Last 30 Days: Yes Use of substances other than those prescribed or required for medical reasons: Yes Substance Use Type: Marijuana Advance Directives: Yes Advance Directives on File: Yes Advance Directives Date on File: 02/24/24 Patient : No service: No Current occupational status: disabled 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 She did not seem in obvious discomfort or obviously acutely ill. HEENT: Other: Face is symmetrical. Mucous membranes moist. Eyes: General: appearance normal, both eyes and all related structures Neck: Other: No obvious JVD Chest: Other: No chest wall tenderness Resp: Effort & Inspection: normal respiratory effort Auscultation: clear to auscultation bilaterally Cardio: Rate: regular rate Rhythm: regular rhythm Heart sounds: S1 normal heart sound present and S2 normal heart sound present GI: Other: Abdomen is soft and nontender Skin: Other: Skin was pale and dry. Neuro: Other: The patient is awake and alert. She is primarily [place] speaking. She was interviewed with a [place]an seedling sorter. Speech is clear. Face symmetrical. Eye movements intact. She moves her extremities normally and appropriately. She seems grossly neurologically intact. Extrem: Other: No peripheral edema. No calf swelling or tenderness. Course Course Course Narrative: This is a Rapid Medical Examination (RME) performed by Eulogio Clemons PA-C in triage. Full HPI, ROS, assessment and treatment plan per primary provider in the Main ED. 48 yo [place] speaking female hx of RA, anxiety, depression, PAD, GERD, fibromyalgia, lupus, DVT on Eliquis here for eval of central chest pain on waking from a nap earlier today. feels like her chest is swollen in that area. assoc nausea w/o vomiting. states these symptoms feel like her acid reflux. took her pantoprazole w/o improvement. only takes this when she feels her symptoms. +tearful in triage, reproducible tenderness along central anterior chest wall without noted deformity. Plan: labs, ekg, trop, cxr Medications Administered Generic Name Dose Route Start Last Admin Trade Name Freq PRN Reason Stop Dose Admin Atorvastatin Calcium 40 mg 05/26/24 21:00 05/26/24 20:54 Atorvastatin Calcium 40 Mg Tablet PO 40 mg BEDTIME LAUREN Administration Heparin Sodium/Sodium Chloride 25,000 unit in 250 mls @ 0 mls/hr 05/26/24 18:15 05/26/24 19:06 Heparin Sodium,Porcine/1/2ns IVCONT 11.16 units/kg/hr .Q0M LAUREN 10 mls/hr Administration Protocol Per Protocol Discontinued Medications Generic Name Dose Route Start Last Admin Trade Name Freq PRN Reason Stop Dose Admin Aspirin 162 mg 05/26/24 16:05 05/26/24 16:11 Aspirin 81 Mg Tab.Chew PO 05/26/24 16:06 162 mg ONCE ONE Administration Clopidogrel Bisulfate 300 mg 05/26/24 18:53 05/26/24 19:47 Clopidogrel Bisulfate 300 Mg Tablet PO 05/26/24 18:54 300 mg ONCE ONE Administration Fentanyl 25 mcg 05/26/24 16:36 05/26/24 16:59 Fentanyl Citrate/Pf 100 Mcg/2 Ml Vial IVPUSH 05/26/24 16:37 25 mcg ONCE ONE Administration Protocol Heparin Sodium (Porcine) 4,000 unit 05/26/24 17:57 05/26/24 18:49 Heparin Sodium,Porcine 5,000 Unit/Ml Vial IVPUSH 05/26/24 17:58 4,000 unit ONCE ONE Administration Lactated Ringer's 500 mls @ 999 mls/hr 05/26/24 16:45 05/26/24 19:15 Lr IV 05/26/24 17:15 Infused .Q31M LAUREN Infusion Nitroglycerin 0.4 mg 05/26/24 16:05 05/26/24 16:34 Nitroglycerin 0.4 Mg Tab.Subl SUBLINGUAL 0.4 mg [id number] PRN Administration Angina Nitroglycerin 1 inch 05/26/24 16:36 05/26/24 16:59 Nitroglycerin 2 % Oint 1 Gm Packet TRANSDERMA 05/26/24 16:37 1 inch ONCE ONE Administration Nitroglycerin 1 inch 05/26/24 18:38 05/26/24 18:51 Nitroglycerin 2 % Oint 1 Gm Packet TRANSDERMA 05/26/24 18:39 1 inch ONCE ONE Administration Medical Decision Making Medical Decision Making [facility] Narrative: The patient is a 48-year-old woman with a history of multiple medical problems who presents with pressure-like chest pain. Her initial EKG was nondiagnostic. Her initial troponin however was elevated at 58. The patient was treated with aspirin and nitroglycerin. A 2nd EKG done 3 hours after the 1st EKG showed T-wave changes in the anterior leads concerning for biphasic or inverted T-waves and suggestive of ongoing ischemia. The patient ultimately was given a total of 3 sublingual nitroglycerins as well as nitroglycerin paste 1st 1 in and then a 2nd inch later. She was started on a heparin drip. Ultimately she became pain-free. Cardiology was consulted and recommended clopidogrel as well. Since the patient has pain resolved and she was feeling and looking much better the patient will be kept at this hospital tonight pending further evaluation by Cardiology and will probably need a transfer to [facility] for cardiac catheterization soon. Lab Data 05/26/24 18:13 05/26/24 14:58 Labs: Lab Results 05/26/24 05/26/24 05/26/24 Range/Units 14:58 17:09 18:13 WBC 5.5 5.6 (4.8-10.8) X10*3/uL RBC 4.05 L 3.68 L (4.20-5.50) X10*6/uL Hgb 12.3 11.1 L (12.0-16.0) g/dl Hct 37.3 34.4 L (37.0-47.0) % MCV 92.1 93.5 (80.0-98.0) fL MCH 30.4 30.2 (27.0-33.0) pg MCHC 33.0 32.3 (31.0-35.0) g/dl RDW 14.4 14.4 (11.0-16.0) % Plt Count 313 304 (160-400) X10*3/uL MPV 9.7 9.8 (9.4-12.3) fL Immature Gran % (Auto) 0.2 (0.0-0.4) % Neut % (Auto) 65.7 (45-73) % Lymph % (Auto) 27.4 (20-40) % [place] % (Auto) 5.8 (2-11) % Eos % (Auto) 0.4 (0-4) % Baso % (Auto) 0.5 (0-2) % Lymph # (Auto) 1.5 (1.2-4.9) X10*3/uL [place] # (Auto) 0.3 (0.1-1.2) X10*3/uL Eos # (Auto) 0.0 (0.0-0.4) X10*3/uL Baso # (Auto) 0.0 (0.0-0.2) X10*3/uL Abs Immat Gran (auto) 0.01 (0.00-0.03) X10*3/uL Absolute Neuts (auto) 3.6 (2.0-8.3) x10*3/uL Absolute Nucleated RBC 0.000 0.000 (0.0-0.012) X10*3/uL Nucleated RBC % (auto) 0.0 0.0 (0.0-0.2) /100WBC PT 11.8 (10.9-12.4) SEC INR 1.0 (0.9-1.1) aPTT Heparin Protocol 30.6 L D (53-77.9) SEC Sodium 138 (135-145) mmol/L Potassium 3.9 (3.3-5.1) mmol/L Chloride 107 (96-108) mmol/L Carbon Dioxide 21 L (22-29) mmol/L Anion Gap 14 (12-20) BUN 10 (9-16) mg/dL Creatinine 0.78 (0.5-1.4) mg/dL Estim Creat Clear Calc 97.7 Estimated GFR > 60 Random Glucose 100 (60-115) mg/dL Calcium 10.1 (8.4-10.2) mg/dL Magnesium 2.1 (1.6-2.6) mg/dL Total Bilirubin 0.3 (0.0-1.0) mg/dL AST 24 (5-31) U/L ALT 12 (0-31) U/L Alkaline Phosphatase 91 (39-117) U/L Troponin I High Sens 58.1 H* D 202.2 H* D (<3.5-17.0) ng/L Total Protein 9.4 H (6.5-8.0) g/dL Albumin 4.2 (3.5-5.0) g/dL Lipase 28 (8-78) U/L Independent Interpretation I performed an independent interpretation of an: EKG Interpretation: EKG at 14:11 shows normal sinus rhythm at 86 beats per minute. I felt this EKG looked like the patient's previous EKGs. Critical Care Time Critical Care Time Critical Care Time: Yes Total Critical Care Time: 45 Attestation: The patient was critically ill with a high probability of imminent or life-threatening deterioration. ?I spent greater than 30 minutes of discontinuous time evaluating the patient, delivering critical care at the bedside, discussing evaluating data with consultants. ?Critical care time does not include time spent performing separately billable procedures or teaching. ?Time spent performing critical care with 45 minutes. Discharge Plan Discharge Clinical Impression: Acute non-ST elevation myocardial infarction (NSTEMI) Patient Disposition: Admitted As Inpatient Interventions: Admission Worksheet (ED) Last Done: 05/26/24 20:37
[2024-05-26 15:04] LABS: MANUAL DIFF FLAG NO
[2024-05-26 15:05] LABS: Basophils Percent Auto 0.5 % (0-2); Eosinophils Percent Auto 0.4 % (0-4); Hematocrit 37.3 % (37.0-47.0); Hemoglobin 12.3 g/dl (12.0-16.0); Imm Gran Abs Auto 0.01 X10*3/uL (0.00-0.03); Imm Gran Pct Auto 0.2 % (0.0-0.4); Lymphocytes Absolute Auto 1.5 X10*3/uL (1.2-4.9); Lymphocytes Percent Auto 27.4 % (20-40); Mean Corpuscular Hemoglobin 30.4 pg (27.0-33.0); Mean Corpuscular Volume 92.1 fL (80.0-98.0); Mean Platelet Volume 9.7 fL (9.4-12.3); Monocytes Absolute Auto 0.3 X10*3/uL (0.1-1.2); Monocytes Percent Auto 5.8 % (2-11); Neutrophils Absolute Auto 3.6 x10*3/uL (2.0-8.3); Neutrophils Percent Auto 65.7 % (45-73); Platelet Count 313 X10*3/uL (160-400); Red Blood Count 4.05 X10*6/uL (4.20-5.50); Red Cell Distribution Width 14.4 % (11.0-16.0); White Blood Count 5.5 X10*3/uL (4.8-10.8)
[2024-05-26 15:27] LABS: Alanine Aminotransferase 12 U/L (0-31); Albumin Level 4.2 g/dL (3.5-5.0); Alkaline Phosphatase 91 U/L (39-117); Anion Gap 14 (12-20); Aspartate Amino Transferase 24 U/L (5-31); Bilirubin Total 0.3 mg/dL (0.0-1.0); Blood Urea Nitrogen 10 mg/dL (9-16); Calcium 10.1 mg/dL (8.4-10.2); Carbon Dioxide 21 mmol/L (22-29); Chloride 107 mmol/L (96-108); Creatinine Clr Calc Pharmacy 97.7; Estimated Glomerular Filt Rate > 60; Glucose Random 100 mg/dL (60-115); Lipase 28 U/L (8-78); Magnesium 2.1 mg/dL (1.6-2.6); Potassium 3.9 mmol/L (3.3-5.1); Sodium 138 mmol/L (135-145); Total Protein 9.4 g/dL (6.5-8.0)
[2024-05-26 15:37] LABS: Troponin-I High Sensitivity 58.1 ng/L (<3.5-17.0)
--- NOTE | 2024-05-26 15:58 | PC.NURSE ---
tearing. reports a gastritis imelda that is stuck in her chest. accompanied by nausea.
[2024-05-26] MEDS: Aspirin 81 MG TAB.CHEW 162 MG PO (16:11)
[2024-05-26] MEDS: Nitroglycerin 0.4 MG TAB.SUBL SUBLINGUAL ×4 (16:14→21:55)
--- NOTE | 2024-05-26 16:23 | PC.NURSE ---
pt reports improvement in CP after 1 SL nitro. Denies headache. awaits MD maya with core drill operator.
[2024-05-26] MEDS: fentaNYL citrate/PF 100 MCG/2 ML VIAL 25 MCG IVPUSH (16:59)
[2024-05-26] MEDS: Lactated Ringers 500 ML 999 ML IV (16:59)
[2024-05-26] MEDS: Nitroglycerin 2 % Oint 1 GM Packet 1 INCH TRANSDERMA ×2 (16:59→18:51)
--- NOTE | 2024-05-26 17:38 | ECG_ITS ---
Test Reason : REPEAT EKG Blood Pressure : / mmHG Vent. Rate : 077 BPM Atrial Rate : 077 BPM P-R Int : 162 ms QRS Dur : 104 ms QT Int : 414 ms P-R-T Axes : 065 -59 076 degrees QTc Int : 468 ms Normal sinus rhythm Left anterior fascicular block Moderate voltage criteria for LVH, may be normal variant ( R in aVL , [place] product ) T wave abnormality, consider anterolateral ischemia Prolonged QT Abnormal ECG When compared with ECG of 26-MAY-2024 14:11, Minimal criteria for Septal infarct are no longer Present T wave inversion more evident in Anterolateral leads Referred By: Kristofer Varghese Electronically Signed By:Ruddy Larios
[2024-05-26 17:47] LABS: Troponin-I High Sensitivity 202.2 ng/L (<3.5-17.0)
[2024-05-26 18:20] LABS: Hematocrit 34.4 % (37.0-47.0); Hemoglobin 11.1 g/dl (12.0-16.0); Mean Corpuscular HGB Conc 32.3 g/dl (31.0-35.0); Mean Corpuscular Hemoglobin 30.2 pg (27.0-33.0); Mean Corpuscular Volume 93.5 fL (80.0-98.0); Mean Platelet Volume 9.8 fL (9.4-12.3); Platelet Count 304 X10*3/uL (160-400); Red Blood Count 3.68 X10*6/uL (4.20-5.50); Red Cell Distribution Width 14.4 % (11.0-16.0); White Blood Count 5.6 X10*3/uL (4.8-10.8)
[2024-05-26 18:25] LABS: Prothrombin Time 11.8 SEC (10.9-12.4)
[2024-05-26 18:27] LABS: PTT Heparin Drip 30.6 SEC (53-77.9)
[2024-05-26] MEDS: Heparin Sodium,Porcine 5,000 UNIT/ML VIAL 4000 UNIT IVPUSH (18:49)
[2024-05-26] MEDS: Heparin Sodium,Porcine/1/2NS 25,000 UNIT/250 ML IV.SOLN 10 UNIT IVCONT (19:06)
--- NOTE | 2024-05-26 19:18 | ECG_ITS ---
Test Reason : REPEAT Blood Pressure : / mmHG Vent. Rate : 065 BPM Atrial Rate : 065 BPM P-R Int : 166 ms QRS Dur : 102 ms QT Int : 446 ms P-R-T Axes : 062 -58 061 degrees QTc Int : 463 ms Normal sinus rhythm Incomplete right bundle branch block Left anterior fascicular block Moderate voltage criteria for LVH, may be normal variant ( R in aVL , [place] product ) Septal infarct , age undetermined T wave abnormality, consider anterolateral ischemia Abnormal ECG When compared with ECG of 26-MAY-2024 17:45, Incomplete right bundle branch block is now Present Septal infarct is now Present Referred By: Kristofer Varghese Electronically Signed By:Ruddy Larios
[2024-05-26] MEDS: Clopidogrel Bisulfate 300 MG TABLET PO (19:47)
--- NOTE | 2024-05-26 19:54 | PM.IMHP ---
History of Present Illness Date of Service: 05/26/24 Chief Complaint: Chest pain This is a 48-year-old female with pertinent history of seropositive rheumatoid arthritis, non-Hodgkin's lymphoma, PID, HARINI, history of DVT on Eliquis, HARINI not on CPAP, COPD not on home oxygen, gastroesophageal reflux disease who presents to the emergency department for evaluation of chest pain. Patient states her symptoms started 1 day prior to presentation. She has been having midsternal chest discomfort that has been constant over the last 24 hours and radiates to the left jaw. Has associated nausea but no sweating or vomiting. Pain does not relieve with rest or increased with ambulation. Also states she was having symptoms of gastroesophageal reflux disease and initially the pain was worse with palpitation. The pain was resolved in the ER with nitroglycerin administration. No fever, chills, palpitations, shortness of breath, abdominal pain, changes in urinary or bowel habits. History obtained with the help of automobile [employer] travel counselor In the emergency department, troponin found to be elevated. Cardiology was consulted and patient was initiated on IV heparin. Review of Systems Constitutional: Constitutional: Reports no additional constitutional complaints Cardiovascular: Cardiovascular: Reports chest pain and Reports chest pain at rest Respiratory: Respiratory: Reports no additional respiratory complaints Gastrointestinal: Gastrointestinal: Reports no additional gastrointestinal complaints Genitourinary: Genitourinary: Reports no additional female genitourinary complaints [facility] Medical History Seropositive rheumatoid arthritis Skin lesion Anxiety Achilles tendinitis Superficial femoral artery occlusion Knee pain, left Depression Hx of peripheral pulmonary artery stenosis PAD (peripheral artery disease) History of chemotherapy Cancer of heart Bone cancer Lung cancer Bleeding hemorrhoid Degeneration, intervertebral disc, lumbar Chronic GERD Degeneration of intervertebral disc at C4-C5 level Osteoarthritis of spine with radiculopathy, lumbar region Fibromyalgia Esophageal dysphagia Vitamin D deficiency Systemic lupus erythematosus Seropositive rheumatoid arthritis Rheumatoid arthritis involving multiple sites Gallstones Stress incontinence in female Nocturia Urgency-frequency syndrome De Quervain's disease (tenosynovitis) Depressive disorder Acute arthritis Hodgkin disease Family History Maternal Grandmother Ovarian cancer Surgical History History of surgical removal of skin lesion (~07/13/23) History of angioplasty of vein History of biopsy H/O tubal ligation Hx of endoscopy Hx laparoscopic cholecystectomy Hx of colonoscopy History of esophagogastroduodenoscopy (EGD) History of repair of inguinal hernia History of lymph node dissection of left axilla Social History Household Members: Spouse Housing: Apartment Are you a primary personal care aide to a significant other at home: No Alcohol intake: never Comment: son at bedside Patient Tobacco Use Status: Current everyday Tobacco user Tobacco use type: Cigarette Cigarette Packs Per Day: 1 Cigarettes Per Day: 20.0 Smoked in Last 30 Days: Yes Use of substances other than those prescribed or required for medical reasons: Yes Substance Use Type: Marijuana Advance Directives: Yes Advance Directives on File: Yes Advance Directives Date on File: 02/24/24 Patient : No service: No Current occupational status: disabled 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 Meds Allergies Allergy/AdvReac Type Severity Reaction Status Date / Time almond [ALMONDS] Allergy Severe ANAPHYLAXIS Verified 05/26/24 14:33 adhesive tape [ADHESIVE TAPE] Allergy Intermediate RASH Verified 05/26/24 14:33 morphine [MORPHINE] Allergy Intermediate GI UPSET, Verified 05/26/24 14:33 difficulty breathing leflunomide AdvReac Intermediate twitching Verified 05/26/24 14:33 tramadol [TRAMADOL] AdvReac Unknown NAUSEA & Verified 05/26/24 14:33 VOMITING Active Medications: Current Medications Heparin Sodium (Porcine) (Heparin Sodium,Porcine 5,000 Unit/Ml Vial) 3,600 unit 40 unit/kg (3600 unit) IVPUSH PROTOCOL BOLUS PRN; Protocol PRN Reason: 40 unit/kg - Heparin Protocol Heparin Sodium (Porcine) (Heparin Sodium,Porcine 5,000 Unit/Ml Vial) 7,200 unit 80 unit/kg (7200 unit) IVPUSH PROTOCOL BOLUS PRN; Protocol PRN Reason: 80 unit/kg - Heparin Protocol Heparin Sodium/Sodium Chloride (Heparin Sodium,Porcine/1/2ns) 25,000 unit in 250 mls @ 0 mls/hr IVCONT .Q0M LAUREN; Protocol Last Admin: 05/26/24 19:06 Dose: 11.16 units/kg/hr, 10 mls/hr Nitroglycerin (Nitroglycerin 0.4 Mg Tab.Subl) 0.4 mg SUBLINGUAL Q5MX3 PRN PRN Reason: Angina Last Admin: 05/26/24 16:34 Dose: 0.4 mg Home Medications ?Medication ?Instructions ?Recorded ?Confirmed ?Last Taken ?Type ferrous sulfate 325 mg (65 mg 1 tab PO DAILY 10/02/21 03/22/24 02/20/24 02:00 History iron) tablet (FeroSul) apixaban 5 mg tablet (Eliquis) 5 mg PO BID 09/22/22 03/22/24 02/20/24 02:00 History alprazolam 1 mg tablet 1 mg PO BEDTIME PRN Anxiety 12/10/22 03/22/24 02/19/24 History chlorhexidine gluconate 0.12 % 15 ml PO DAILY PRN Bacteria 10/25/23 03/22/24 Unknown History mouthwash albuterol sulfate 90 mcg/actuation 2 puff inhalation Q6H PRN Wheezing 02/20/24 03/22/24 Unknown History aerosol inhaler ascorbic acid (vitamin C) 500 mg 1,000 mg PO DAILY 02/20/24 03/22/24 02/20/24 02:00 History tablet (Vitamin C) cilostazol 100 mg tablet 100 mg PO BID 02/20/24 03/22/24 02/20/24 02:00 History folic acid 1 mg tablet 1 mg PO DAILY PRN Folic Acid Levels 02/20/24 03/22/24 Unknown History nicotine 21 mg/24 hr daily 1 patch transdermal DAILY 02/20/24 03/22/24 02/19/24 History transdermal patch vitamin A 3,000 mcg (10,000 unit) 1 cap PO DAILY 02/20/24 03/22/24 02/20/24 02:00 History capsule baricitinib 2 mg tablet (Olumiant) mg PO 03/22/24 03/22/24 Unknown History sertraline 50 mg tablet (Zoloft) 75 mg PO DAILY 03/22/24 03/22/24 Unknown History benztropine 0.5 mg tablet 0.5 mg PO DAILY 04/23/24 Unknown History cetirizine 10 mg tablet 10 mg PO QAM neuropathic pain 04/23/24 Unknown History diclofenac sodium 1 % topical gel 2 g topical QID 04/23/24 Unknown History gabapentin 400 mg capsule mg PO 04/23/24 Unknown History oxycodone-acetaminophen 7.5 mg-325 1 tab PO Q8H PRN severe pain 04/23/24 Unknown History mg tablet risperidone 1 mg tablet mg PO 04/23/24 Unknown History trazodone 150 mg tablet 150 mg PO BEDTIME PRN 04/23/24 Unknown History umeclidinium 62.5 mcg/actuation 1 inh inhalation DAILY 04/23/24 Unknown History blister powder for inhalation (Incruse Ellipta) ursodiol 250 mg tablet 250 mg PO 04/23/24 Unknown History Physical Exam Vital Signs and Narrative: Vital Signs: Last Vital Signs Temp 97.8 F 05/26/24 17:11 Pulse 70 05/26/24 18:51 Resp 18 05/26/24 18:07 BP 139/88 05/26/24 18:51 Pulse Ox 100 05/26/24 18:07 O2 Del Method Room Air 05/26/24 18:07 BMI result Body Mass Index 32.9 Middle-aged female lying in bed in no distress Neck supple, no JVD Regular rate and rhythm, S1-S2 heard Regular breath sounds bilaterally, no wheezing or crackles appreciated Abdomen soft nontender, no guarding, no rigidity Patient is awake, alert and oriented to self, place, time and person ; no focal motor deficit Psych: Normal mood No pedal edema Results Labs 05/26/24 18:13 05/26/24 14:58 Labs: Laboratory Results - last 24 hr 05/26/24 05/26/24 05/26/24 14:58 17:09 18:13 MCV 92.1 93.5 MCH 30.4 30.2 MCHC 33.0 32.3 RDW 14.4 14.4 Plt Count 313 304 MPV 9.7 9.8 Immature Gran % (Auto) 0.2 Neut % (Auto) 65.7 Lymph % (Auto) 27.4 [place] % (Auto) 5.8 Eos % (Auto) 0.4 Baso % (Auto) 0.5 Lymph # (Auto) 1.5 [place] # (Auto) 0.3 Eos # (Auto) 0.0 Baso # (Auto) 0.0 Abs Immat Gran (auto) 0.01 Absolute Neuts (auto) 3.6 Absolute Nucleated RBC 0.000 0.000 Nucleated RBC % (auto) 0.0 0.0 PT 11.8 INR 1.0 aPTT Heparin Protocol 30.6 L D Anion Gap 14 Estim Creat Clear Calc 97.7 Estimated GFR > 60 Random Glucose 100 Calcium 10.1 Magnesium 2.1 Total Bilirubin 0.3 AST 24 ALT 12 Alkaline Phosphatase 91 Troponin I High Sens 58.1 H* D 202.2 H* D Total Protein 9.4 H Albumin 4.2 Lipase 28 Imaging Radiologist's Impressions: Impressions Chest X-Ray 05/26/24 15:40 IMPRESSION: Unremarkable examination. Electronically signed by: Trinh Bergman MD 05/26/2024 04:46 PM EDT RP Assessment and Plan (1) NSTEMI (non-ST elevated myocardial infarction): Status: Acute Plan This is a 48-year-old female with pertinent history of seropositive rheumatoid arthritis, non-Hodgkin's lymphoma, PID, HARINI, history of DVT on Eliquis, HARINI not on CPAP, COPD not on home oxygen, gastroesophageal reflux disease who presents to the emergency department for evaluation of chest pain. #. NSTEMI: Will admit patient with cardiac monitoring and IV heparin. Patient given dual antiplatelet therapy in the ER. Initiating high-intensity statin. Consulted Cardiology and obtaining echo. #. History of DVT: On IV heparin as above #. Gastroesophageal reflux disease: On PPI #. Mood disorder: Continue home mood stabilizers #. COPD: No exacerbation during admission. Continue home inhalers #. Seropositive rheumatoid arthritis: On weekly methotrexate and Orencia infusion #. Long-term methotrexate use: On folic acid Med rec pending DVT prophylaxis: IV heparin Full code Admit as inpatient and will require two night minimum hospital stay for IV heparin (as above), which is not possible in a lesser acute setting. Specialist consult pending Quality Stroke Does the patient have a stroke diagnosis?: No VTE Prior VTE?: No VTE Risk Level:: Medical - moderate - high VTE Device Contraindication: Treatment Not Indicated VTE Drug Contraindication: N/A - Med Ordered
[2024-05-26] MEDS: Atorvastatin Calcium 40 MG TABLET PO (20:54)
--- NOTE | 2024-05-26 21:18 | PC.NURSE ---
patient complaints of squeezing and pressure in the chest, rating it 3/10 MD notified
[2024-05-26] MEDS: LORazepam 1 MG TABLET PO (23:32)
--- NOTE | 2024-05-27 | ECG_ITS ---
Test Reason : nstemi Blood Pressure : / mmHG Vent. Rate : 069 BPM Atrial Rate : 069 BPM P-R Int : 158 ms QRS Dur : 114 ms QT Int : 450 ms P-R-T Axes : 055 -59 121 degrees QTc Int : 482 ms Normal sinus rhythm Left anterior fascicular block Anterolateral T wave inversions- consider ischemia. Prolonged QT Abnormal ECG When compared with ECG of 26-MAY-2024 19:18, Incomplete right bundle branch block is no longer Present Criteria for Septal infarct are no longer Present Referred By: Landy Hernandez Electronically Signed By:Ruddy Larios
[2024-05-27] MEDS: 0.9 % Sodium Chloride Flush 3 ML SYRINGE IVFLUSH ×2 (00:30→08:10)
[2024-05-27] MEDS: Melatonin 3 MG TABLET 6 MG PO (01:06)
[2024-05-27] MEDS: Heparin Sodium,Porcine 5,000 UNIT/ML VIAL 3600 UNIT IVPUSH (01:55)
[2024-05-27 03:59] VITALS: BP 119/75; PULSE 72; RESP 20; TEMP 36.8; O2SAT 97
[2024-05-27] MEDS: ondansetron HCL 4 MG/2 ML VIAL IVPUSH (06:25)
[2024-05-27 08:00] VITALS: BP 121/69; PULSE 72; RESP 18; TEMP 36.9; O2SAT 93
[2024-05-27] MEDS: Aspirin 81 MG TAB.CHEW PO (08:08)
[2024-05-27 08:14] LABS: Hematocrit 34.6 % (37.0-47.0); Hemoglobin 11.3 g/dl (12.0-16.0); Mean Corpuscular HGB Conc 32.7 g/dl (31.0-35.0); Mean Corpuscular Hemoglobin 30.4 pg (27.0-33.0); Mean Platelet Volume 9.5 fL (9.4-12.3); Platelet Count 296 X10*3/uL (160-400); Red Blood Count 3.72 X10*6/uL (4.20-5.50); Red Cell Distribution Width 14.4 % (11.0-16.0); White Blood Count 4.5 X10*3/uL (4.8-10.8)
[2024-05-27 08:19] LABS: INTERNATIONAL NORM RATIO 1.1 (0.9-1.1); Prothrombin Time 12.8 SEC (10.9-12.4)
[2024-05-27 08:21] LABS: PTT Heparin Drip 90.7 SEC (53-77.9)
[2024-05-27 08:33] LABS: Anion Gap 12 (12-20); Blood Urea Nitrogen 8 mg/dL (9-16); Calcium 9.7 mg/dL (8.4-10.2); Carbon Dioxide 24 mmol/L (22-29); Chloride 106 mmol/L (96-108); Creatinine Clr Calc Pharmacy 101.2; Estimated Glomerular Filt Rate > 60; Glucose Random 103 mg/dL (60-115); Potassium 3.7 mmol/L (3.3-5.1); Sodium 138 mmol/L (135-145)
[2024-05-27 08:35] LABS: Cholesterol 181 mg/dL (<200); HDL Cholesterol 38 mg/dL (>40); LDL Cholesterol Calculated 123 mg/dL (<100); Triglycerides 100 mg/dL (<150)
--- NOTE | 2024-05-27 09:12 | P.CONCA_ITS ---
History of Present Illness History of Present Illness Date of Service: 05/27/24 Requesting physician: Landy Hernandez Chief complaint: Chest Pain, NSTEMI Narrative: 48-year-old female with background history of lupus, rheumatoid arthritis, Hodgkin's lymphoma, obstructive sleep apnea, fibromyalgia and atypical chest pains presenting for central burning chest discomfort which happen for the 1st time. Her ECG evolved into biphasic T-waves in a well in pattern and she has ruled in for NSTEMI. She was given nitroglycerin in the ER and after starting heparin symptoms have improved completely. She has no symptoms currently. Quite emotional. No bleeding issues. She has history of left leg and right arm DVT in the past and has been on Eliquis. She is also on cilostazol for peripheral arterial disease. [facility]LY [facility] Past Medical History Medical History Seropositive rheumatoid arthritis Skin lesion Anxiety Achilles tendinitis Superficial femoral artery occlusion Knee pain, left Depression Hx of peripheral pulmonary artery stenosis PAD (peripheral artery disease) History of chemotherapy Cancer of heart Bone cancer Lung cancer Bleeding hemorrhoid Degeneration, intervertebral disc, lumbar Chronic GERD Degeneration of intervertebral disc at C4-C5 level Osteoarthritis of spine with radiculopathy, lumbar region Fibromyalgia Esophageal dysphagia Vitamin D deficiency Systemic lupus erythematosus Seropositive rheumatoid arthritis Rheumatoid arthritis involving multiple sites Gallstones Stress incontinence in female Nocturia Urgency-frequency syndrome De Quervain's disease (tenosynovitis) Depressive disorder Acute arthritis Hodgkin disease Family History Family History Maternal Grandmother Ovarian cancer Surgical History Surgical History History of surgical removal of skin lesion (~07/13/23) History of angioplasty of vein History of biopsy H/O tubal ligation Hx of endoscopy Hx laparoscopic cholecystectomy Hx of colonoscopy History of esophagogastroduodenoscopy (EGD) History of repair of inguinal hernia History of lymph node dissection of left axilla Social History Social History Household Members: Significant Other Housing: Apartment Are you a primary transitional care liaison to a significant other at home: No Alcohol intake: never Comment: son at bedside Patient Tobacco Use Status: Current everyday Tobacco user Tobacco use type: Cigarette Cigarette Packs Per Day: 1 Cigarettes Per Day: 20.0 Smoked in Last 30 Days: Yes Patient Interested in Nicotine Replacement: Yes Use of substances other than those prescribed or required for medical reasons: Yes Substance Use Type: Marijuana Substance Use Frequency: Daily Currently Displaying Signs/Symptoms of Drug Intoxication Withdrawal: No Have you been hit, kicked, punched, or otherwise hurt by someone within the past year? 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 Meds Allergies Allergy/AdvReac Type Severity Reaction Status Date / Time almond [ALMONDS] Allergy Severe ANAPHYLAXIS Verified 05/26/24 14:33 adhesive tape [ADHESIVE TAPE] Allergy Intermediate RASH Verified 05/26/24 14:33 morphine [MORPHINE] Allergy Intermediate GI UPSET, Verified 05/26/24 14:33 difficulty breathing leflunomide AdvReac Intermediate twitching Verified 05/26/24 14:33 tramadol [TRAMADOL] AdvReac Unknown NAUSEA & Verified 05/26/24 14:33 VOMITING Active Medications: Current Medications Acetaminophen (Acetaminophen 325 Mg Tablet) 650 mg PO Q6H PRN PRN Reason: Pain, Mild (Pain Scale 1-3), fever or headache Aspirin (Aspirin 81 Mg Tab.Chew) 81 mg PO DAILY [facility] Last Admin: 05/27/24 08:08 Dose: 81 mg Atorvastatin Calcium (Atorvastatin Calcium 40 Mg Tablet) 40 mg PO BEDTIME [facility] Last Admin: 05/26/24 20:54 Dose: 40 mg Calcium Carbonate (Calcium Carbonate 750 Mg Tab.Chew) 750 mg PO Q4H PRN PRN Reason: Heartburn Clopidogrel Bisulfate (Clopidogrel Bisulfate 75 Mg Tablet) 75 mg PO DAILY [facility] Heparin Sodium (Porcine) (Heparin Sodium,Porcine 5,000 Unit/Ml Vial) 3,600 unit 40 unit/kg (3600 unit) IVPUSH PROTOCOL BOLUS PRN; Protocol PRN Reason: 40 unit/kg - Heparin Protocol Last Admin: 05/27/24 01:55 Dose: 3,600 unit Heparin Sodium (Porcine) (Heparin Sodium,Porcine 5,000 Unit/Ml Vial) 7,200 unit 80 unit/kg (7200 unit) IVPUSH PROTOCOL BOLUS PRN; Protocol PRN Reason: 80 unit/kg - Heparin Protocol Heparin Sodium/Sodium Chloride (Heparin Sodium,Porcine/1/2ns) 25,000 unit in 250 mls @ 0 mls/hr IVCONT .Q0M LAUREN; Protocol Last Titration: 05/27/24 08:58 Dose: 11.16 units/kg/hr, 10 mls/hr Magnesium Hydroxide (Milk Of Magnesia 30 Ml Oral.Susp) 30 ml PO DAILY PRN PRN Reason: Constipation Melatonin (Melatonin 3 Mg Tablet) 6 mg PO BEDTIME PRN PRN Reason: Insomnia Last Admin: 05/27/24 01:06 Dose: 6 mg Metoprolol Tartrate (Metoprolol Tartrate 25 Mg Tablet) 25 mg PO BID [facility]; Protocol Nicotine (Nicotine 7 Mg Patch.Td24) 7 mg TRANSDERMA DAILY [facility] Nitroglycerin (Nitroglycerin 0.4 Mg Tab.Subl) 0.4 mg SUBLINGUAL Q5MX3 PRN PRN Reason: Chest Pain Last Admin: 05/26/24 21:55 Dose: 0.4 mg Ondansetron HCl (Ondansetron Hcl 4 Mg/2 Ml Vial) 4 mg IVPUSH Q8H PRN PRN Reason: Nausea and Vomiting Last Admin: 05/27/24 06:25 Dose: 4 mg Sodium Chloride (0.9 % Sodium Chloride Flush 3 Ml Syringe) [facility] Last Admin: 05/27/24 08:10 Dose: 3 ml Home Medications ?Medication ?Instructions ?Recorded ?Confirmed ?Last Taken ?Type ferrous sulfate 325 mg (65 mg 1 tab PO DAILY 10/02/21 03/22/24 02/20/24 02:00 History iron) tablet (FeroSul) apixaban 5 mg tablet (Eliquis) 5 mg PO BID 09/22/22 03/22/24 02/20/24 02:00 History alprazolam 1 mg tablet 1 mg PO BEDTIME PRN Anxiety 12/10/22 03/22/24 02/19/24 History chlorhexidine gluconate 0.12 % 15 ml PO DAILY PRN Bacteria 10/25/23 03/22/24 Unknown History mouthwash albuterol sulfate 90 mcg/actuation 2 puff inhalation Q6H PRN Wheezing 02/20/24 03/22/24 Unknown History aerosol inhaler ascorbic acid (vitamin C) 500 mg 1,000 mg PO DAILY 02/20/24 03/22/24 02/20/24 02:00 History tablet (Vitamin C) cilostazol 100 mg tablet 100 mg PO BID 02/20/24 03/22/24 02/20/24 02:00 History folic acid 1 mg tablet 1 mg PO DAILY PRN Folic Acid Levels 02/20/24 03/22/24 Unknown History nicotine 21 mg/24 hr daily 1 patch transdermal DAILY 02/20/24 03/22/24 02/19/24 History transdermal patch vitamin A 3,000 mcg (10,000 unit) 1 cap PO DAILY 02/20/24 03/22/24 02/20/24 02:00 History capsule baricitinib 2 mg tablet (Olumiant) mg PO 03/22/24 03/22/24 Unknown History sertraline 50 mg tablet (Zoloft) 75 mg PO DAILY 03/22/24 03/22/24 Unknown History benztropine 0.5 mg tablet 0.5 mg PO DAILY 04/23/24 Unknown History cetirizine 10 mg tablet 10 mg PO QAM neuropathic pain 04/23/24 Unknown History diclofenac sodium 1 % topical gel 2 g topical QID 04/23/24 Unknown History gabapentin 400 mg capsule mg PO 04/23/24 Unknown History oxycodone-acetaminophen 7.5 mg-325 1 tab PO Q8H PRN severe pain 04/23/24 Unknown History mg tablet risperidone 1 mg tablet mg PO 04/23/24 Unknown History trazodone 150 mg tablet 150 mg PO BEDTIME PRN 04/23/24 Unknown History umeclidinium 62.5 mcg/actuation 1 inh inhalation DAILY 04/23/24 Unknown History blister powder for inhalation (Incruse Ellipta) ursodiol 250 mg tablet 250 mg PO 04/23/24 Unknown History Physical Exam 2 Vital Signs: Vital Signs: Last Vital Signs Temp 98.4 F 05/27/24 08:00 Pulse 72 05/27/24 08:00 Resp 18 05/27/24 08:00 BP 121/69 05/27/24 08:00 Pulse Ox 93 05/27/24 08:00 O2 Del Method Room Air 05/27/24 08:00 BMI result Body Mass Index 32.9 GENERAL APPEARANCE: in no acute distress, pleasant. NECK: no carotid bruit, no jugular venous distention. SKIN: no suspicious lesions, warm and dry. HEART: no murmurs, regular rate and rhythm. LUNGS: clear to auscultation bilaterally. ABDOMEN: soft, nontender. EXTREMITIES: no edema. PERIPHERAL PULSES: equal. NEUROLOGIC: No gross deficits, AAO X 3 Objective Labs and Meds 05/27/24 08:03 05/27/24 08:03 Lab results: Laboratory Results - last 24 hr 05/26/24 05/26/24 05/26/24 14:58 17:09 18:13 WBC 5.5 5.6 RBC 4.05 L 3.68 L Hgb 12.3 11.1 L Hct 37.3 34.4 L MCV 92.1 93.5 MCH 30.4 30.2 MCHC 33.0 32.3 RDW 14.4 14.4 Plt Count 313 304 MPV 9.7 9.8 Immature Gran % (Auto) 0.2 Neut % (Auto) 65.7 Lymph % (Auto) 27.4 [facility] % (Auto) 5.8 Eos % (Auto) 0.4 Baso % (Auto) 0.5 Lymph # (Auto) 1.5 [facility] # (Auto) 0.3 Eos # (Auto) 0.0 Baso # (Auto) 0.0 Abs Immat Gran (auto) 0.01 Absolute Neuts (auto) 3.6 Absolute Nucleated RBC 0.000 0.000 Nucleated RBC % (auto) 0.0 0.0 PT 11.8 INR 1.0 aPTT Heparin Protocol 30.6 L D Sodium 138 Potassium 3.9 Chloride 107 Carbon Dioxide 21 L Anion Gap 14 BUN 10 Creatinine 0.78 Estim Creat Clear Calc 97.7 Estimated GFR > 60 Random Glucose 100 Calcium 10.1 Magnesium 2.1 Total Bilirubin 0.3 AST 24 ALT 12 Alkaline Phosphatase 91 Troponin I High Sens 58.1 H* D 202.2 H* D Total Protein 9.4 H Albumin 4.2 Triglycerides Cholesterol LDL Cholesterol, Calc HDL Cholesterol Lipase 28 05/27/24 05/27/24 01:03 08:03 WBC 4.5 L RBC 3.72 L Hgb 11.3 L Hct 34.6 L MCV 93.0 MCH 30.4 MCHC 32.7 RDW 14.4 Plt Count 296 MPV 9.5 Immature Gran % (Auto) Neut % (Auto) Lymph % (Auto) [facility] % (Auto) Eos % (Auto) Baso % (Auto) Lymph # (Auto) [facility] # (Auto) Eos # (Auto) Baso # (Auto) Abs Immat Gran (auto) Absolute Neuts (auto) Absolute Nucleated RBC 0.000 Nucleated RBC % (auto) 0.0 PT 12.8 H INR 1.1 aPTT Heparin Protocol 49.0 L D 90.7 H D Sodium 138 Potassium 3.7 Chloride 106 Carbon Dioxide 24 Anion Gap 12 BUN 8 L Creatinine 0.76 Estim Creat Clear Calc 101.2 Estimated GFR > 60 Random Glucose 103 Calcium 9.7 Magnesium Total Bilirubin AST ALT Alkaline Phosphatase Troponin I High Sens Total Protein Albumin Triglycerides 100 Cholesterol 181 LDL Cholesterol, Calc 123 H HDL Cholesterol 38 L Lipase Imaging Radiologist's impression: Impressions Chest X-Ray 05/26/24 15:40 IMPRESSION: Unremarkable examination. Electronically signed by: Trinh Bergman MD 05/26/2024 04:46 PM EDT RP Assessment and Plan (1) NSTEMI (non-ST elevated myocardial infarction): Status: Acute Plan [age] year female with complex medical issues presenting for chest pain and ruled in for NSTEMI. She is on aspirin, Plavix and heparin drip at this point. Eliquis has been held. Start beta-reji metoprolol 25 mg twice a day. Keep NPO after midnight for potential cardiac catheterization tomorrow. We will request a bed at [facility]. There has been some delays and if she is unable to go today then potentially we will do the procedure on Tuesday. If she has any recurrent chest pain then please page. We will follow along with you. Thank you for allowing me to participate in the care of your patient. Please feel free to contact me if you have any questions. Procedures Date of Service Date of Service: 05/27/24
[2024-05-27 09:22] VITALS: BP 121/69; PULSE 72
[2024-05-27] MEDS: Nicotine 7 MG PATCH.TD24 TRANSDERMA (09:22)
[2024-05-27] MEDS: Metoprolol Tartrate 25 MG TABLET PO (09:22)
[2024-05-27] MEDS: Clopidogrel Bisulfate 75 MG TABLET PO (09:22)
[2024-05-27 09:41] LABS: Troponin-I High Sensitivity 1179.2 ng/L (<3.5-17.0)
--- NOTE | 2024-05-27 11:58 | P.DS_ITS ---
DS: Providers Provider Date of Service: 05/27/24 Date of admission: 05/26/24 19:43 Primary care physician: Mackenzie Estrada MD Consults: 05/26/24 19:53 Consult to Cardiology Routine Consulting Provider: [facility] Reason for consultation: Nstemi Has provider been notified: Yes DS: Diagnosis Discharge Diagnosis (1) NSTEMI (non-ST elevated myocardial infarction): Status: Acute DS: Summary Hospital Course Hospital Course: History of presenting illness: Date of Service: 05/26/24 Chief Complaint: Chest pain This is a 48-year-old female with pertinent history of seropositive rheumatoid arthritis, non-Hodgkin's lymphoma, PVD, HARINI, history of DVT on Eliquis, HARINI not on CPAP, COPD not on home oxygen, gastroesophageal reflux disease who presents to the emergency department for evaluation of chest pain. Patient states her symptoms started 1 day prior to presentation. She has been having midsternal chest discomfort that has been constant over the last 24 hours and radiates to the left jaw. Has associated nausea but no sweating or vomiting. Pain does not relieve with rest or increased with ambulation. Also states she was having symptoms of gastroesophageal reflux disease and initially the pain was worse with palpitation. The pain was resolved in the ER with nitroglycerin administration. No fever, chills, palpitations, shortness of breath, abdominal pain, changes in urinary or bowel habits. History obtained with the help of chemical strength tester In the emergency department, troponin found to be elevated. Cardiology was consulted and patient was initiated on IV heparin. Hospital course: 48-year-old female with pertinent history of seropositive rheumatoid arthritis,Lupus, non-Hodgkin's lymphoma, PVD, HARINI, history of DVT on Eliquis, HARINI not on CPAP, COPD not on home oxygen, gastroesophageal reflux disease, active smoker, who presents to the emergency department for evaluation of chest pain that was different than her prior chest discomfort ,localized to mid chest lasted for > one hour, without associated shortness of breath or diaphoresis, in ED patient noted to have elevated troponin, abnormal EKG that showed normal sinus rhythm T-wave abnormality in anterior lateral leads, incomplete right bundle branch block, patient admitted to intermediate care unit with a diagnosis of non ST elevation OR, started on IV heparin, statin, aspirin, Plavix and beta- blockers, Eliquis was held patient evaluated by Cardiology they recommend to transfer patient to [facility] for cardiac catheterization on current medications ,at present patient is chest pain-free, no arrhythmias noted, clinically not in heart failure. History of DVT: Eliquis discontinued since patient on IV heparin as above . In regard to seropositive rheumatoid arthritis/lupus , on methotrexate and Orencia that are held can resume upon discharge. Mood disorder: Continue home mood stabilizers. COPD: No acute exacerbation noted strongly recommend to abstain from smoking place on nicotine patch 7 mg daily since patient admits to smoking 6 cigarettes a day. GERD : Continue Pepcid and Prilosec. Time Attestation Discharge Coordination Time (in mins): 40 Quality: Safe Use of Opioids Does Pt have an Active Cancer Diagnosis on the Problem List?: No Quality: Stroke Does the patient have a stroke diagnosis?: No Physical Exam Vital Signs: Vital Signs: Last Vital Signs Temp 98.4 F 05/27/24 08:00 Pulse 72 05/27/24 09:22 Resp 18 05/27/24 08:00 BP 121/69 05/27/24 09:22 Pulse Ox 93 05/27/24 08:00 O2 Del Method Room Air 05/27/24 08:00 BMI result Body Mass Index 32.9 Const: Other: General awake alert x3, anxious, in no acute distress. Anicteric sclera Neck no JVD. CVS regular rate rhythm, Respiratory lungs clear to auscultation, no respiratory distress, no wheeze, no rhonchi. Gastrointestinal abdomen soft,bowel sounds audible, , no distention, no rigidity. Extremities no LE edema./swelling middle finger right hand , and mild diffuse right hand swelling. Neuro non focal ,speech clear. Skin no rash Psych appropriate affect DS: Data Data Completed and Pending Completed studies during hospitalization [Text1]: Procedures Excision of Duodenum, Via Natural or Artificial Opening Endoscopic, Diagnostic (02/20/24) Excision of Esophagogastric Junction, Via Natural or Artificial Opening Endosco pic, Diagnostic (02/20/24) Excision of Large Intestine, Via Natural or Artificial Opening Endoscopic, Diagnostic (02/20/24) Labs on day of discharge: Laboratory Results - last 24 hr 05/26/24 05/26/24 05/26/24 14:58 17:09 18:13 WBC 5.5 5.6 RBC 4.05 L 3.68 L Hgb 12.3 11.1 L Hct 37.3 34.4 L MCV 92.1 93.5 MCH 30.4 30.2 MCHC 33.0 32.3 RDW 14.4 14.4 Plt Count 313 304 MPV 9.7 9.8 Immature Gran % (Auto) 0.2 Neut % (Auto) 65.7 Lymph % (Auto) 27.4 [place] % (Auto) 5.8 Eos % (Auto) 0.4 Baso % (Auto) 0.5 Lymph # (Auto) 1.5 [place] # (Auto) 0.3 Eos # (Auto) 0.0 Baso # (Auto) 0.0 Abs Immat Gran (auto) 0.01 Absolute Neuts (auto) 3.6 Absolute Nucleated RBC 0.000 0.000 Nucleated RBC % (auto) 0.0 0.0 PT 11.8 INR 1.0 aPTT Heparin Protocol 30.6 L D Sodium 138 Potassium 3.9 Chloride 107 Carbon Dioxide 21 L Anion Gap 14 BUN 10 Creatinine 0.78 Estim Creat Clear Calc 97.7 Estimated GFR > 60 Random Glucose 100 Calcium 10.1 Magnesium 2.1 Total Bilirubin 0.3 AST 24 ALT 12 Alkaline Phosphatase 91 Troponin I High Sens 58.1 H* D 202.2 H* D Total Protein 9.4 H Albumin 4.2 Triglycerides Cholesterol LDL Cholesterol, Calc HDL Cholesterol Lipase 28 05/27/24 05/27/24 01:03 08:03 WBC 4.5 L RBC 3.72 L Hgb 11.3 L Hct 34.6 L MCV 93.0 MCH 30.4 MCHC 32.7 RDW 14.4 Plt Count 296 MPV 9.5 Immature Gran % (Auto) Neut % (Auto) Lymph % (Auto) [place] % (Auto) Eos % (Auto) Baso % (Auto) Lymph # (Auto) [place] # (Auto) Eos # (Auto) Baso # (Auto) Abs Immat Gran (auto) Absolute Neuts (auto) Absolute Nucleated RBC 0.000 Nucleated RBC % (auto) 0.0 PT 12.8 H INR 1.1 aPTT Heparin Protocol 49.0 L D 90.7 H D Sodium 138 Potassium 3.7 Chloride 106 Carbon Dioxide 24 Anion Gap 12 BUN 8 L Creatinine 0.76 Estim Creat Clear Calc 101.2 Estimated GFR > 60 Random Glucose 103 Calcium 9.7 Magnesium Total Bilirubin AST ALT Alkaline Phosphatase Troponin I High Sens 1179.2 H* D Total Protein Albumin Triglycerides 100 Cholesterol 181 LDL Cholesterol, Calc 123 H HDL Cholesterol 38 L Lipase Discharge Plan Discharge Anticipated Discharge Date/Time: 05/27/24 12:27 Patient Disposition: Xfer Acute Care Hospital Discharge Diagnosis: Non ST-elevation OR Referrals: Mackenzie Estrada MD [Primary Care Provider] - 1 Week Discharge Medications: New atorvastatin 40 mg Tablet 40 mg PO BEDTIME Qty: 30 0RF acetaminophen 325 mg Tablet 650 mg PO Q6H PRN (Reason: Pain, Mild (Pain Scale 1-3), fever or headache) Qty: 30 0RF clopidogrel 75 mg Tablet 75 mg PO DAILY Qty: 30 0RF nitroglycerin [Nitrostat] 0.4 mg Tablet, Sublingual 0.4 mg sublingual Q5MX3 PRN (Reason: Chest Pain) Qty: 30 0RF aspirin 81 mg Tablet,Chewable 81 mg PO DAILY Qty: 30 0RF nicotine 7 mg/24 hr Patch 24 Hour 7 mg transdermal DAILY Qty: 30 0RF metoprolol tartrate 25 mg Tablet 25 mg PO BID Qty: 60 0RF Protocol: Hold for SBP/HR < HOLD for SBP < : 90 HOLD for HR < : 60 heparin(porcine) in 0.45% NaCl 25,000 unit/250 mL Parenteral Solution 25,000 unit continuous IV infusion .Q0M Qty: 1 0RF Continued lidocaine [Lidoderm] 5 % adhesive patch,medicated 1 patch topical DAILY MDD remove after 12 hours PRN (Reason: pain) Qty: 30 0RF Rx Instructions: leave on most painful area for up to 12 hrs cyclobenzaprine 5 mg tablet 5 mg PO Q8H PRN (Reason: pain (scale score 7-10)) 5 Days Qty: 14 0RF albuterol sulfate 90 mcg/actuation Hfa Aerosol Inhaler 2 puff INHALATION Q6H PRN (Reason: Wheezing) vitamin A 3,000 mcg (10,000 unit) capsule 1 cap PO DAILY ascorbic acid (vitamin C) [Vitamin C] 500 mg tablet 1,000 mg PO DAILY folic acid 1 mg tablet 1 mg PO DAILY famotidine 20 mg tablet 20 mg PO BID polyethylene glycol 3350 17 gram/dose powder 17 g PO DAILY PRN (Reason: Constipation) risperidone 1 mg tablet 1 mg PO BEDTIME risperidone 1 mg tablet 0.5 mg PO DAILY PRN (Reason: anxiety/agitation/paranoia) cholecalciferol (vitamin D3) [Vitamin D3] 25 mcg (1,000 unit) capsule 25 mcg PO DAILY docusate sodium [Colace] 100 mg capsule 100 mg PO BID PRN (Reason: Constipation) cyanocobalamin (vitamin B-12) 1,000 mcg/mL Solution 1,000 mcg IM QMONTH alprazolam 1 mg tablet 1 mg PO BEDTIME PRN (Reason: Anxiety) pantoprazole 40 mg tablet,delayed release (DR/EC) 40 mg PO DAILY Qty: 90 1RF trazodone 150 mg tablet 150 mg PO BEDTIME PRN (Reason: anxiety/sleep) benztropine 0.5 mg tablet 0.5 mg PO DAILY oxycodone-acetaminophen 7.5-325 mg tablet 1 tab PO Q8H PRN (Reason: severe pain) gabapentin 400 mg capsule 400 mg PO TID Discontinued ferrous sulfate [FeroSul] 325 mg (65 mg iron) tablet 1 tab PO DAILY cilostazol 100 mg tablet 100 mg PO BID ibuprofen 800 mg Tablet 800 mg PO BID PRN (Reason: Pain) acetaminophen 650 mg Tablet Extended Release 1,300 mg PO BID PRN (Reason: Pain) methotrexate sodium 2.5 mg tablet 2.5 mg PO WE Patient Comments: Patient reports taking 1 tablet once weekly. (05/27/24) Orencia (with maltose) 250 mg Recon Soln 750 mg IV DIRECTED Rx Instructions: administer over 30 mins Doses at 0, 2, and 4 weeks, then every 4 weeks thereafter. 1st dose was on 05/07, last dose was 05/25 per medical record. Eliquis 5 mg tablet 5 mg PO BID sertraline [Zoloft] 50 mg tablet 75 mg PO DAILY PRN (Reason: depression) ursodiol 250 mg tablet 250 mg PO BID diclofenac sodium 1 % gel 2 g topical QID PRN (Reason: Pain) cetirizine 10 mg tablet 10 mg PO QAM Discharge Orders: Discharge Order (Routine); Ordered 05/27/24 Ordered By: Landy Hernandez Diet: Low fat, low cholesterol Activity on Discharge: As tolerated Stand Alone Forms: Patient Portal Discharge page Print Language: [place] Care Plan Goals: Non ST-elevation OR being transferred to [facility] for cardiac catheterization Continue aspirin/Plavix/Lipitor/metoprolol and IV heparin drip Health Concerns: Continue home medications as prescribed Plan of Treatment: Follow-up with saw handle assembler and primary care physician upon discharge Assessment: As above
[2024-05-27 12:00] VITALS: BP 117/75; PULSE 76; RESP 17; TEMP 36.2; O2SAT 96
--- NOTE | 2024-05-27 12:01 | PHA.MEDREC ---
Addendum entered by Nabor Tapia 05/27/24 12:11: reviewed Original Note: Pharmacy Consult ? Medication Reconciliation Pharmacy has completed the medication reconciliation. Spoke with patient to confirm medications through an flight data technician. She reports only taking 1 tablet of methotrexate every week (rx says 10 tablets weekly). She is no longer taking Olumiant or leflunomide. She is currently getting Orencia infusions: Doses at 0, 2, and 4 weeks, then every 4 weeks thereafter. 1st dose was on 05/07, last dose was 05/25 per medical record. She is also getting monthly B12 injections, last dose 05/01. She confirmed that she is currently not on prednisone. She confirmed the rest of her medications. She last took everything tuesday night.
[2024-05-27 14:59] LABS: UPreg QC Valid YES; Urine Pregnancy NEGATIVE (NEGATIVE)
[2024-05-27 15:21] VITALS: BP 110/69; PULSE 82; RESP 18; TEMP 36.6; O2SAT 97
[2024-05-27] MEDS: Gabapentin 400 MG CAPSULE PO (15:25)
[2024-05-27] MEDS: Heparin Sodium,Porcine/1/2NS 25,000 UNIT/250 ML IV.SOLN 10 UNIT IVCONT (16:27)
== END 2024-05-27 18:12 | disposition short-term general hospital (02) | DRG 190 ==
LOC: HO.ED 20:09 → HO.EDOVER 20:34 → HO.IMC 21:08
PROVIDERS: Physician Assistant Medical; Admitting Provider Student in an Organized Health Care Education/Training Program; Emergency Provider Emergency Medicine; PCP General Practice; Visit Provider Hospitalist
DX: I21.4 Non-ST elevation (NSTEMI) myocardial infarction (principal); M32.9 Systemic lupus erythematosus, unspecified; F17.210 Nicotine dependence, cigarettes, uncomplicated; M05.9 Rheumatoid arthritis with rheumatoid factor, unspecified; Z71.6 Tobacco abuse counseling; G47.33 Obstructive sleep apnea (adult) (pediatric); J44.9 Chronic obstructive pulmonary disease, unspecified; Z86.718 Personal history of other venous thrombosis and embolism; Z85.71 Personal history of Hodgkin lymphoma; Z92.21 Personal history of antineoplastic chemotherapy; Z79.82 Long term (current) use of aspirin; Z79.899 Other long term (current) drug therapy
CPT/HCPCS: 36415; 71046; 80048; 80053; 80061; 81025; 83690; 83735; 84484; 85025; 85027; 85610; 85730; 93005; 99285; J1644; J2405; J3010; J7120

== ENCOUNTER → 2024-05-26 16:42 | Outpatient (BNV) | payer MEDICAID, SELFPAY | PROVIDERS: Emergency Provider Emergency Medicine; PCP General Practice; Visit Provider Student in an Organized Health Care Education/Training Program | DX: I21.4 Non-ST elevation (NSTEMI) myocardial infarction (principal) | CPT/HCPCS: 99223; 99239 ==

== ENCOUNTER 2024-05-26 19:43 | Outpatient (BNV) | payer MEDICAID, SELFPAY | END 2024-05-27 09:56 | PROVIDERS: Admitting Provider Student in an Organized Health Care Education/Training Program; Emergency Provider Emergency Medicine; PCP General Practice; Visit Provider Internal Medicine Cardiovascular Disease | DX: R94.31 Abnormal electrocardiogram [ECG] [EKG] (principal) | CPT/HCPCS: 93010 ==

== ENCOUNTER → 2024-05-26 19:43 | Outpatient (BNV) | payer MEDICAID, SELFPAY | PROVIDERS: Admitting Provider Student in an Organized Health Care Education/Training Program; Emergency Provider Emergency Medicine; PCP General Practice; Visit Provider Internal Medicine Cardiovascular Disease | DX: I21.4 Non-ST elevation (NSTEMI) myocardial infarction (principal); R94.31 Abnormal electrocardiogram [ECG] [EKG] | CPT/HCPCS: 93010; 99223 ==

== ENCOUNTER → 2024-05-28 23:59 | Outpatient (BNV) | payer MEDICAID, SELFPAY | PROVIDERS: PCP General Practice; Visit Provider Internal Medicine Cardiovascular Disease | DX: I21.4 Non-ST elevation (NSTEMI) myocardial infarction (principal) | CPT/HCPCS: 92928; 93458; 99152 ==

== ENCOUNTER 2024-06-08 12:15 | Emergency (ER) | payer MEDICAID, SELFPAY ==
--- NOTE | ~2024-06-08 | XR_ITS ---
EXAMINATION: XR CHEST CLINICAL INFORMATION: cp COMPARISON: X-ray dated May 26, 2024 TECHNIQUE: Frontal view of the chest was obtained. FINDINGS: No consolidation, pleural effusion or pneumothorax. Cardiomediastinal silhouette is normal in size. Multilevel thoracic spondylosis. S-shaped curvature of the thoracic spine which could be positional. Vascular clips in the right axillary/right lateral soft tissues breast region. XR/XR chest 1V IMPRESSION: No acute airspace disease. Electronically signed by: Madan Tijerina MD 06/08/2024 01:10 PM [facility] MCKEON
--- NOTE | 2024-06-08 12:18 | ECG_ITS ---
Test Reason : chest pain Blood Pressure : / mmHG Vent. Rate : 060 BPM Atrial Rate : 060 BPM P-R Int : 172 ms QRS Dur : 128 ms QT Int : 472 ms P-R-T Axes : 071 258 -58 degrees QTc Int : 472 ms Normal sinus rhythm Right superior axis deviation Left anterior fascicular block Minimal voltage criteria for LVH, may be normal variant ( [place]y product ) Marked T wave abnormality, consider anterolateral ischemia Abnormal ECG When compared with ECG of 27-MAY-2024 09:56, No significant changes seen Referred By: Generic ED Physician Electronically Signed By:OLGA KINGSTON MD
[2024-06-08 12:32] VITALS: BP 122/76; PULSE 63; RESP 18; TEMP 36.7; O2SAT 98; BMI 31.2
--- NOTE | 2024-06-08 12:38 | ED.ABDPAIN ---
HPI - Abdominal Pain General Chief Complaint: Chest Pain Stated Complaint: Chest pain History of Present Illness HPI narrative: s/p cardiac cath [facility] 05/28 s/p stent to LAD - culprit lesion with plaque rupture mid LAD LMCA: normal LcX: normal RCA: normal Related Data Home Medications ?Medication ?Instructions ?Recorded ?Confirmed alprazolam 1 mg tablet 1 mg PO BEDTIME PRN Anxiety 12/10/22 05/27/24 albuterol sulfate 90 mcg/actuation 2 puff inhalation Q6H PRN Wheezing 02/20/24 05/27/24 aerosol inhaler folic acid 1 mg tablet 1 mg PO DAILY 02/20/24 05/27/24 benztropine 0.5 mg tablet 0.5 mg PO DAILY 04/23/24 05/27/24 gabapentin 400 mg capsule 400 mg PO TID 04/23/24 05/27/24 oxycodone-acetaminophen 7.5 mg-325 1 tab PO Q8H PRN severe pain 04/23/24 05/27/24 mg tablet trazodone 150 mg tablet 150 mg PO BEDTIME PRN anxiety/sleep 04/23/24 05/27/24 cholecalciferol (vitamin D3) 25 25 mcg PO DAILY 05/27/24 05/27/24 mcg (1,000 unit) capsule (Vitamin D3) cyanocobalamin (vitamin B-12) 1,000 mcg IM QMONTH 05/27/24 05/27/24 1,000 mcg/mL injection solution docusate sodium 100 mg capsule 100 mg PO BID PRN Constipation 05/27/24 05/27/24 (Colace) famotidine 20 mg tablet 20 mg PO BID 05/27/24 05/27/24 polyethylene glycol 3350 17 17 g PO DAILY PRN Constipation 05/27/24 05/27/24 gram/dose oral powder risperidone 1 mg tablet 0.5 mg PO DAILY PRN 05/27/24 05/27/24 anxiety/agitation/paranoia risperidone 1 mg tablet 1 mg PO BEDTIME 05/27/24 05/27/24 Previous Rx's ?Medication ?Instructions ?Recorded pantoprazole 40 mg tablet,delayed 40 mg PO DAILY #90 tabs 11/04/23 release cyclobenzaprine 5 mg tablet 5 mg PO Q8H PRN pain (scale score 05/22/24 7-10) 5 days #14 tabs lidocaine 5 % topical patch 1 patch topical DAILY PRN pain #30 05/22/24 (Lidoderm) ea acetaminophen 325 mg tablet 650 mg (2 x 325 mg) PO Q6H PRN 05/27/24 Pain, Mild (Pain Scale 1-3), fever or headache #30 tabs aspirin 81 mg chewable tablet 81 mg PO DAILY #30 tabs 05/27/24 atorvastatin 40 mg tablet 40 mg PO BEDTIME #30 tabs 05/27/24 clopidogrel 75 mg tablet 75 mg PO DAILY #30 tabs 05/27/24 heparin (porcine) 25,000 unit/250 25,000 unit (250 mL) continuous IV 05/27/24 mL in 0.45 % sodium chloride IV infusion .Q0M #1 mL soln metoprolol tartrate 25 mg tablet 25 mg PO BID #60 tabs 05/27/24 nicotine 7 mg/24 hr daily 7 mg transdermal DAILY #30 ea 05/27/24 transdermal patch nitroglycerin 0.4 mg sublingual 0.4 mg sublingual Q5MX3 PRN Chest 05/27/24 tablet (Nitrostat) Pain #30 tabs ascorbic acid (vitamin C) 500 mg 1,000 mg (2 x 500 mg) PO QAM #180 05/28/24 tablet (Vitamin C) tabs vitamin A 3,000 mcg (10,000 unit) 1 cap PO QAM #90 caps 05/28/24 capsule Allergies Allergy/AdvReac Type Severity Reaction Status Date / Time almond [ALMONDS] Allergy Severe ANAPHYLAXIS Verified 06/08/24 12:38 adhesive tape [ADHESIVE TAPE] Allergy Intermediate RASH Verified 06/08/24 12:38 morphine [MORPHINE] Allergy Intermediate GI UPSET, Verified 06/08/24 12:38 difficulty breathing leflunomide AdvReac Intermediate twitching Verified 06/08/24 12:38 tramadol [TRAMADOL] AdvReac Unknown NAUSEA & Verified 06/08/24 12:38 VOMITING PMFSH Past Medical History Medical History Seropositive rheumatoid arthritis Skin lesion Anxiety Achilles tendinitis Superficial femoral artery occlusion Knee pain, left Depression Hx of peripheral pulmonary artery stenosis PAD (peripheral artery disease) History of chemotherapy Cancer of heart Bone cancer Lung cancer Bleeding hemorrhoid Degeneration, intervertebral disc, lumbar Chronic GERD Degeneration of intervertebral disc at C4-C5 level Osteoarthritis of spine with radiculopathy, lumbar region Fibromyalgia Esophageal dysphagia Vitamin D deficiency Systemic lupus erythematosus Seropositive rheumatoid arthritis Rheumatoid arthritis involving multiple sites Gallstones Stress incontinence in female Nocturia Urgency-frequency syndrome De Quervain's disease (tenosynovitis) Depressive disorder Acute arthritis Hodgkin disease Surgical History History of surgical removal of skin lesion (~07/13/23) History of angioplasty of vein History of biopsy H/O tubal ligation Hx of endoscopy Hx laparoscopic cholecystectomy Hx of colonoscopy History of esophagogastroduodenoscopy (EGD) History of repair of inguinal hernia History of lymph node dissection of left axilla Family History Family History Maternal Grandmother Ovarian cancer Social History Social History Household Members: Significant Other Housing: Apartment Are you a primary behavioral health care manager to a significant other at home: No Alcohol intake: never Comment: son at bedside Patient Tobacco Use Status: Current everyday Tobacco user Tobacco use type: Cigarette Cigarette Packs Per Day: 1 Cigarettes Per Day: 20.0 Substance Use Type: Marijuana Advance Directives: Yes Advance Directives on File: Yes Advance Directives Date on File: 02/24/24 Do you have a plan to hurt others: No Plan service: No Current occupational status: disabled 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 This is a 48-year-old female history of NSTEMI on clopidogrel and aspirin, B12 deficiency, hypertension, obesity, iron deficiency anemia, rheumatoid nodules, Hodgkin's disease presenting with complaints of chest pain since yesterday with some associated shortness of breath. Unable to tell me what makes the pain better or worse present at all times. Physical exam benign Medical Decision Making Lab Data 06/08/24 12:45 11/08/24 12:45 Labs: Lab Results 06/08/24 Range/Units 12:45 WBC 6.3 (4.8-10.8) X10*3/uL RBC 3.74 L (4.20-5.50) X10*6/uL Hgb 11.1 L (12.0-16.0) g/dl Hct 34.2 L (37.0-47.0) % MCV 91.4 (80.0-98.0) fL MCH 29.7 (27.0-33.0) pg MCHC 32.5 (31.0-35.0) g/dl RDW 13.8 (11.0-16.0) % Plt Count 327 (160-400) X10*3/uL MPV 10.3 (9.4-12.3) fL Immature Gran % (Auto) 0.3 (0.0-0.4) % Neut % (Auto) 55.9 (45-73) % Lymph % (Auto) 36.6 (20-40) % [place] % (Auto) 6.5 (2-11) % Eos % (Auto) 0.5 (0-4) % Baso % (Auto) 0.2 (0-2) % Lymph # (Auto) 2.3 (1.2-4.9) X10*3/uL [place] # (Auto) 0.4 (0.1-1.2) X10*3/uL Eos # (Auto) 0.0 (0.0-0.4) X10*3/uL Baso # (Auto) 0.0 (0.0-0.2) X10*3/uL Abs Immat Gran (auto) 0.02 (0.00-0.03) X10*3/uL Absolute Neuts (auto) 3.5 (2.0-8.3) x10*3/uL Absolute Nucleated RBC 0.000 (0.0-0.012) X10*3/uL Nucleated RBC % (auto) 0.0 (0.0-0.2) /100WBC PT 13.5 H (10.9-12.4) SEC INR 1.2 H (0.9-1.1) Sodium 139 (135-145) mmol/L Potassium 3.5 (3.3-5.1) mmol/L Chloride 104 (96-108) mmol/L Carbon Dioxide 24 (22-29) mmol/L Anion Gap 15 (12-20) BUN 14 (9-16) mg/dL Creatinine 0.79 (0.5-1.4) mg/dL Estim Creat Clear Calc 98.1 Estimated GFR > 60 Random Glucose 99 (60-115) mg/dL Calcium 9.8 (8.4-10.2) mg/dL Magnesium 2.2 (1.6-2.6) mg/dL Total Bilirubin 0.2 (0.0-1.0) mg/dL AST 27 (5-31) U/L ALT 16 (0-31) U/L Alkaline Phosphatase 114 (39-117) U/L Troponin I High Sens 27.5 H D (<3.5-17.0) ng/L B-Natriuretic Peptide 155 H (<100) pg/mL Total Protein 9.2 H (6.5-8.0) g/dL Albumin 4.1 (3.5-5.0) g/dL Discharge Plan Discharge Clinical Impression: Chest pain Patient Disposition: Left W/O Completing Treatment Prescriptions: No Action ascorbic acid (vitamin C) [Vitamin C] 500 mg tablet 1,000 mg PO QAM Qty: 180 2RF vitamin A 3,000 mcg (10,000 unit) capsule 1 cap PO QAM Qty: 90 1RF lidocaine [Lidoderm] 5 % adhesive patch,medicated 1 patch topical DAILY MDD remove after 12 hours PRN (Reason: pain) Qty: 30 0RF Rx Instructions: leave on most painful area for up to 12 hrs cyclobenzaprine 5 mg tablet 5 mg PO Q8H PRN (Reason: pain (scale score 7-10)) 5 Days Qty: 14 0RF albuterol sulfate 90 mcg/actuation Hfa Aerosol Inhaler 2 puff INHALATION Q6H PRN (Reason: Wheezing) folic acid 1 mg tablet 1 mg PO DAILY famotidine 20 mg tablet 20 mg PO BID polyethylene glycol 3350 17 gram/dose powder 17 g PO DAILY PRN (Reason: Constipation) risperidone 1 mg tablet 1 mg PO BEDTIME risperidone 1 mg tablet 0.5 mg PO DAILY PRN (Reason: anxiety/agitation/paranoia) cholecalciferol (vitamin D3) [Vitamin D3] 25 mcg (1,000 unit) capsule 25 mcg PO DAILY docusate sodium [Colace] 100 mg capsule 100 mg PO BID PRN (Reason: Constipation) cyanocobalamin (vitamin B-12) 1,000 mcg/mL Solution 1,000 mcg IM QMONTH atorvastatin 40 mg Tablet 40 mg PO BEDTIME Qty: 30 0RF acetaminophen 325 mg Tablet 650 mg PO Q6H PRN (Reason: Pain, Mild (Pain Scale 1-3), fever or headache) Qty: 30 0RF clopidogrel 75 mg Tablet 75 mg PO DAILY Qty: 30 0RF nitroglycerin [Nitrostat] 0.4 mg Tablet, Sublingual 0.4 mg sublingual Q5MX3 PRN (Reason: Chest Pain) Qty: 30 0RF aspirin 81 mg Tablet,Chewable 81 mg PO DAILY Qty: 30 0RF nicotine 7 mg/24 hr Patch 24 Hour 7 mg transdermal DAILY Qty: 30 0RF metoprolol tartrate 25 mg Tablet 25 mg PO BID Qty: 60 0RF Protocol: Hold for SBP/HR < HOLD for SBP < : 90 HOLD for HR < : 60 heparin(porcine) in 0.45% NaCl 25,000 unit/250 mL Parenteral Solution 25,000 unit continuous IV infusion .Q0M Qty: 1 0RF alprazolam 1 mg tablet 1 mg PO BEDTIME PRN (Reason: Anxiety) pantoprazole 40 mg tablet,delayed release (DR/EC) 40 mg PO DAILY Qty: 90 1RF trazodone 150 mg tablet 150 mg PO BEDTIME PRN (Reason: anxiety/sleep) benztropine 0.5 mg tablet 0.5 mg PO DAILY oxycodone-acetaminophen 7.5-325 mg tablet 1 tab PO Q8H PRN (Reason: severe pain) gabapentin 400 mg capsule 400 mg PO TID Discharge Date/Time: 06/08/24 15:27
[2024-06-08 12:50] LABS: MANUAL DIFF FLAG NO
[2024-06-08 12:59] LABS: INTERNATIONAL NORM RATIO 1.2 (0.9-1.1); Prothrombin Time 13.5 SEC (10.9-12.4)
[2024-06-08 13:03] LABS: Basophils Percent Auto 0.2 % (0-2); Eosinophils Percent Auto 0.5 % (0-4); Hematocrit 34.2 % (37.0-47.0); Hemoglobin 11.1 g/dl (12.0-16.0); Imm Gran Abs Auto 0.02 X10*3/uL (0.00-0.03); Imm Gran Pct Auto 0.3 % (0.0-0.4); Lymphocytes Absolute Auto 2.3 X10*3/uL (1.2-4.9); Lymphocytes Percent Auto 36.6 % (20-40); Mean Corpuscular HGB Conc 32.5 g/dl (31.0-35.0); Mean Corpuscular Hemoglobin 29.7 pg (27.0-33.0); Mean Corpuscular Volume 91.4 fL (80.0-98.0); Mean Platelet Volume 10.3 fL (9.4-12.3); Monocytes Absolute Auto 0.4 X10*3/uL (0.1-1.2); Monocytes Percent Auto 6.5 % (2-11); Neutrophils Absolute Auto 3.5 x10*3/uL (2.0-8.3); Neutrophils Percent Auto 55.9 % (45-73); Platelet Count 327 X10*3/uL (160-400); Red Blood Count 3.74 X10*6/uL (4.20-5.50); Red Cell Distribution Width 13.8 % (11.0-16.0); White Blood Count 6.3 X10*3/uL (4.8-10.8)
[2024-06-08 13:09] LABS: Alanine Aminotransferase 16 U/L (0-31); Albumin Level 4.1 g/dL (3.5-5.0); Alkaline Phosphatase 114 U/L (39-117); Anion Gap 15 (12-20); Aspartate Amino Transferase 27 U/L (5-31); Bilirubin Total 0.2 mg/dL (0.0-1.0); Blood Urea Nitrogen 14 mg/dL (9-16); Calcium 9.8 mg/dL (8.4-10.2); Carbon Dioxide 24 mmol/L (22-29); Chloride 104 mmol/L (96-108); Creatinine Clr Calc Pharmacy 98.1; Estimated Glomerular Filt Rate > 60; Glucose Random 99 mg/dL (60-115); Magnesium 2.2 mg/dL (1.6-2.6); Potassium 3.5 mmol/L (3.3-5.1); Sodium 139 mmol/L (135-145); Total Protein 9.2 g/dL (6.5-8.0)
[2024-06-08 13:17] LABS: B Type Natriuretic Peptide 155 pg/mL (<100); Troponin-I High Sensitivity 27.5 ng/L (<3.5-17.0)
--- NOTE | 2024-06-08 15:26 | PC.NURSE ---
Pt reached by phone. States she feels regular and will call her station operator.
== END 2024-06-08 15:27 | disposition left against medical advice (07) ==
PROVIDERS: Physician Assistant; Emergency Provider Emergency Medicine; PCP General Practice
DX: R07.9 Chest pain, unspecified (principal); M32.9 Systemic lupus erythematosus, unspecified; M05.9 Rheumatoid arthritis with rheumatoid factor, unspecified; I21.4 Non-ST elevation (NSTEMI) myocardial infarction; E53.8 Deficiency of other specified B group vitamins; G47.33 Obstructive sleep apnea (adult) (pediatric); F17.210 Nicotine dependence, cigarettes, uncomplicated; Z85.118 Personal history of other malignant neoplasm of bronchus and lung; Z85.830 Personal history of malignant neoplasm of bone; Z85.29 Personal history of malignant neoplasm of other respiratory and intrathoracic organs; Z92.21 Personal history of antineoplastic chemotherapy; Z79.899 Other long term (current) drug therapy; Z79.82 Long term (current) use of aspirin; Z79.02 Long term (current) use of antithrombotics/antiplatelets
CPT/HCPCS: 36415; 71045; 80053; 83735; 83880; 84484; 85025; 85610; 93005; 99283

== ENCOUNTER → 2024-06-08 12:18 | Outpatient (BNV) | payer MEDICAID, SELFPAY | PROVIDERS: Emergency Provider Emergency Medicine; PCP General Practice; Visit Provider Internal Medicine Cardiovascular Disease | DX: R07.9 Chest pain, unspecified (principal); R94.31 Abnormal electrocardiogram [ECG] [EKG] | CPT/HCPCS: 93010 ==

== ENCOUNTER → 2024-06-08 12:37 | Outpatient (BNV) | payer MEDICAID, SELFPAY | PROVIDERS: PCP General Practice; Visit Provider Radiology Diagnostic Radiology | DX: R07.9 Chest pain, unspecified (principal) | CPT/HCPCS: 71045 ==

== ENCOUNTER 2024-06-12 09:51 | Inpatient (IN) | payer MEDICAID, SELFPAY ==
--- NOTE | ~2024-06-12 | XR_ITS ---
EXAMINATION: XR ELBOW, LEFT CLINICAL INFORMATION: Swollen painful elbow COMPARISON: None available. TECHNIQUE: AP, lateral, and oblique views of the left elbow. FINDINGS: No fracture. Alignment is anatomic. Joint spaces are maintained. No bony erosions. There is dense soft tissue swelling posterior elbow and diffuse, heterogeneous soft tissue swelling about the distal arm and medial proximal forearm. No radiopaque foreign body. XR/XR elbow LT min 3V IMPRESSION: Extensive soft tissue infiltration distal arm, elbow and proximal forearm, suspect cellulitis. No radiographic evidence of osteomyelitis. Consider cross-sectional imaging, with either IV contrast enhanced CT or MRI. Electronically signed by: Clari Hardin MD 06/12/2024 12:22 PM [facility]
[2024-06-12 10:43] VITALS: BP 132/87; PULSE 82; RESP 18; TEMP 36.1; O2SAT 98; BMI 30.6
--- NOTE | 2024-06-12 10:49 | ECG_ITS ---
Test Reason : cp Blood Pressure : / mmHG Vent. Rate : 074 BPM Atrial Rate : 074 BPM P-R Int : 164 ms QRS Dur : 108 ms QT Int : 414 ms P-R-T Axes : 082 -51 119 degrees QTc Int : 459 ms Normal sinus rhythm Pulmonary disease pattern Left anterior fascicular block Left ventricular hypertrophy with repolarization abnormality ( R in aVL , [place] product ) Abnormal ECG When compared with ECG of 08-JUN-2024 12:19, Left anterior fascicular block is now Present T wave inversion no longer evident in Inferior leads Referred By: Generic ED Physician Electronically Signed By:Ruddy Larios
[2024-06-12 11:07] LABS: MANUAL DIFF FLAG NO
[2024-06-12 11:08] LABS: Basophils Percent Auto 0.1 % (0-2); Hematocrit 34.9 % (37.0-47.0); Hemoglobin 11.7 g/dl (12.0-16.0); Imm Gran Abs Auto 0.03 X10*3/uL (0.00-0.03); Imm Gran Pct Auto 0.3 % (0.0-0.4); Lymphocytes Absolute Auto 1.4 X10*3/uL (1.2-4.9); Lymphocytes Percent Auto 16.2 % (20-40); Mean Corpuscular HGB Conc 33.5 g/dl (31.0-35.0); Mean Corpuscular Hemoglobin 30.3 pg (27.0-33.0); Mean Corpuscular Volume 90.4 fL (80.0-98.0); Monocytes Absolute Auto 0.5 X10*3/uL (0.1-1.2); Monocytes Percent Auto 5.1 % (2-11); Neutrophils Absolute Auto 6.9 x10*3/uL (2.0-8.3); Neutrophils Percent Auto 78.3 % (45-73); Platelet Count 335 X10*3/uL (160-400); Red Blood Count 3.86 X10*6/uL (4.20-5.50); White Blood Count 8.8 X10*3/uL (4.8-10.8)
[2024-06-12 11:10] VITALS: BP 102/57; PULSE 75; RESP 18; TEMP 37.3; O2SAT 96
--- NOTE | 2024-06-12 11:11 | PC.NURSE ---
LEFT elbow with open drainage site of pus to posterior joint. Erythema and swelling noted to elbow. Patient endorses pain.
[2024-06-12 11:30] LABS: Anion Gap 13 (12-20); Blood Urea Nitrogen 15 mg/dL (9-16); Calcium 9.6 mg/dL (8.4-10.2); Carbon Dioxide 24 mmol/L (22-29); Chloride 103 mmol/L (96-108); Creatinine Clr Calc Pharmacy 91.5; Estimated Glomerular Filt Rate > 60; Glucose Random 134 mg/dL (60-115); Potassium 3.9 mmol/L (3.3-5.1); Sodium 136 mmol/L (135-145)
[2024-06-12 11:33] LABS: Troponin-I High Sensitivity 24.4 ng/L (<3.5-17.0)
[2024-06-12 11:58] LABS: Alanine Aminotransferase 37 U/L (0-31); Albumin Level 3.9 g/dL (3.5-5.0); Alkaline Phosphatase 117 U/L (39-117); Aspartate Amino Transferase 65 U/L (5-31); Bilirubin Direct 0.3 mg/dL (0.0-0.5); Bilirubin Total 0.6 mg/dL (0.0-1.0); C Reactive Protein 9.98 mg/dL (< or = 0.50); Lactic Acid 1.6 mmol/L (0.5-2.0); Total Protein 8.9 g/dL (6.5-8.0)
--- NOTE | 2024-06-12 11:59 | ED_ITS ---
HPI - Chest Pain General Chief Complaint: Chest Pain Stated Complaint: infection in arm Time Seen by Provider: 06/12/24 11:53 History of Present Illness ED Provider: Dr. Smith HPI narrative: 48 y/o F patient; PMH NSTEMI 05/28/2024 with stent to LAD, rheumatoid arthritis, PAD, hx right upper extremity DVT on Eliquis, COPD, GERD, HARINI, SLE, non- hodgkin's lymphoma; presents from home reporting left elbow pain, swelling, and warmth. Associated with dizziness and nausea/vomiting. One day of fever. Diffuse body aches. The patient otherwise denies: sob, cough/congestion, abdominal pain, diarrhea. She denies any known injury or trauma to the elbow. Related Data Home Medications ?Medication ?Instructions ?Recorded ?Confirmed alprazolam 1 mg tablet 1 mg PO BEDTIME PRN Anxiety 12/10/22 05/27/24 albuterol sulfate 90 mcg/actuation 2 puff inhalation Q6H PRN Wheezing 02/20/24 05/27/24 aerosol inhaler folic acid 1 mg tablet 1 mg PO DAILY 02/20/24 05/27/24 benztropine 0.5 mg tablet 0.5 mg PO DAILY 04/23/24 05/27/24 gabapentin 400 mg capsule 400 mg PO TID 04/23/24 05/27/24 oxycodone-acetaminophen 7.5 mg-325 1 tab PO Q8H PRN severe pain 04/23/24 05/27/24 mg tablet trazodone 150 mg tablet 150 mg PO BEDTIME PRN anxiety/sleep 04/23/24 05/27/24 cholecalciferol (vitamin D3) 25 25 mcg PO DAILY 05/27/24 05/27/24 mcg (1,000 unit) capsule (Vitamin D3) cyanocobalamin (vitamin B-12) 1,000 mcg IM QMONTH 05/27/24 05/27/24 1,000 mcg/mL injection solution docusate sodium 100 mg capsule 100 mg PO BID PRN Constipation 05/27/24 05/27/24 (Colace) famotidine 20 mg tablet 20 mg PO BID 05/27/24 05/27/24 polyethylene glycol 3350 17 17 g PO DAILY PRN Constipation 05/27/24 05/27/24 gram/dose oral powder risperidone 1 mg tablet 0.5 mg PO DAILY PRN 05/27/24 05/27/24 anxiety/agitation/paranoia risperidone 1 mg tablet 1 mg PO BEDTIME 05/27/24 05/27/24 apixaban 5 mg tablet (Eliquis) 5 mg PO 06/12/24 atorvastatin 80 mg tablet 80 mg PO DAILY 06/12/24 cefadroxil 500 mg capsule 500 mg PO BID 06/12/24 cilostazol 100 mg tablet 100 mg PO 06/12/24 doxycycline hyclate 100 mg tablet 100 mg PO BID 06/12/24 ferrous sulfate 325 mg (65 mg 325 mg PO QAM 06/12/24 iron) tablet lidocaine-prilocaine 2.5 %-2.5 % topical Q8-12H PRN moderate pain 06/12/24 topical cream sertraline 50 mg tablet (Zoloft) 75 mg PO DAILY 06/12/24 umeclidinium 62.5 mcg/actuation 1 inh inhalation DAILY 06/12/24 blister powder for inhalation (Incruse Ellipta) ursodiol 250 mg tablet 250 mg PO 06/12/24 Previous Rx's ?Medication ?Instructions ?Recorded pantoprazole 40 mg tablet,delayed 40 mg PO DAILY #90 tabs 11/04/23 release cyclobenzaprine 5 mg tablet 5 mg PO Q8H PRN pain (scale score 05/22/24 7-10) 5 days #14 tabs lidocaine 5 % topical patch 1 patch topical DAILY PRN pain #30 05/22/24 (Lidoderm) ea acetaminophen 325 mg tablet 650 mg (2 x 325 mg) PO Q6H PRN 05/27/24 Pain, Mild (Pain Scale 1-3), fever or headache #30 tabs aspirin 81 mg chewable tablet 81 mg PO DAILY #30 tabs 05/27/24 clopidogrel 75 mg tablet 75 mg PO DAILY #30 tabs 05/27/24 heparin (porcine) 25,000 unit/250 25,000 unit (250 mL) continuous IV 05/27/24 mL in 0.45 % sodium chloride IV infusion .Q0M #1 mL soln metoprolol tartrate 25 mg tablet 25 mg PO BID #60 tabs 05/27/24 nicotine 7 mg/24 hr daily 7 mg transdermal DAILY #30 ea 05/27/24 transdermal patch nitroglycerin 0.4 mg sublingual 0.4 mg sublingual Q5MX3 PRN Chest 05/27/24 tablet (Nitrostat) Pain #30 tabs ascorbic acid (vitamin C) 500 mg 1,000 mg (2 x 500 mg) PO QAM #180 05/28/24 tablet (Vitamin C) tabs vitamin A 3,000 mcg (10,000 unit) 1 cap PO QAM #90 caps 05/28/24 capsule Allergies Allergy/AdvReac Type Severity Reaction Status Date / Time almond [ALMONDS] Allergy Severe ANAPHYLAXIS Verified 06/12/24 10:44 adhesive tape [ADHESIVE TAPE] Allergy Intermediate RASH Verified 06/12/24 10:44 morphine [MORPHINE] Allergy Intermediate GI UPSET, Verified 06/12/24 10:44 difficulty breathing leflunomide AdvReac Intermediate twitching Verified 06/12/24 10:44 tramadol [TRAMADOL] AdvReac Unknown NAUSEA & Verified 06/12/24 10:44 VOMITING Review of Systems 2 Review of Systems: Yes all other systems are reviewed and are negative PMFSH Past Medical History Attestation statement: The following information was validated with the patient. Source: old records reviewed Medical History Seropositive rheumatoid arthritis Skin lesion Anxiety Achilles tendinitis Superficial femoral artery occlusion Knee pain, left Depression Hx of peripheral pulmonary artery stenosis PAD (peripheral artery disease) History of chemotherapy Cancer of heart Bone cancer Lung cancer Bleeding hemorrhoid Degeneration, intervertebral disc, lumbar Chronic GERD Degeneration of intervertebral disc at C4-C5 level Osteoarthritis of spine with radiculopathy, lumbar region Fibromyalgia Esophageal dysphagia Vitamin D deficiency Systemic lupus erythematosus Seropositive rheumatoid arthritis Rheumatoid arthritis involving multiple sites Gallstones Stress incontinence in female Nocturia Urgency-frequency syndrome De Quervain's disease (tenosynovitis) Depressive disorder Acute arthritis Hodgkin disease Surgical History History of surgical removal of skin lesion (~07/13/23) History of angioplasty of vein History of biopsy H/O tubal ligation Hx of endoscopy Hx laparoscopic cholecystectomy Hx of colonoscopy History of esophagogastroduodenoscopy (EGD) History of repair of inguinal hernia History of lymph node dissection of left axilla Family History Family History Maternal Grandmother Ovarian cancer Social History Social History Household Members: Significant Other Housing: Apartment Are you a primary healthcare administration intern to a significant other at home: No Alcohol intake: never Comment: son at bedside Patient Tobacco Use Status: Current everyday Tobacco user Tobacco use type: Cigarette Cigarette Packs Per Day: 1 Cigarettes Per Day: 20.0 Smoked in Last 30 Days: No Use of substances other than those prescribed or required for medical reasons: No Substance Use Type: Marijuana Advance Directives: Yes Advance Directives on File: Yes Advance Directives Date on File: 02/24/24 Do you have a plan to hurt others: No Plan service: No Current occupational status: disabled 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 Physical Exam 2 Vital Signs: Vital Signs: Last Vital Signs Temp 99.1 F 06/12/24 11:10 Pulse 72 06/12/24 12:00 Resp 16 06/12/24 12:00 BP 104/62 06/12/24 12:00 Pulse Ox 97 06/12/24 12:00 O2 Del Method Room Air 06/12/24 12:00 BMI result Body Mass Index 30.6 Patient is afebrile and hemodynamically stable Const: General: cooperative HEENT: Head: Yes atraumatic Eyes: General: appearance normal, both eyes and all related structures P upils: Equal, round and reactive pupils present EOM: EOMs intact bilaterally Neck: Neck: Yes normal visual inspection, Yes full ROM, Yes supple and No tender Chest: Chest palpation & inspection: normal inspection of the chest and normal palpation of entire chest wall Resp: Effort & Inspection: normal respiratory effort, able to speak in complete sentences, no cough and no respiratory distress Auscultation: clear to auscultation bilaterally Cardio: Rate: regular rate Rhythm: regular rhythm Peripheral pulses: P eripheral pulses 2+ throughout GI: Inspection: Yes normal to inspection, No Abdominal wall edema and No distended Palpation (GI): Soft to palpation, not firm, nontender, no guarding and not rigid Auscultation: normal bowel sounds Back/Spine/Pelvis: Back: No back tenderness Neuro: Cranial nerves: Yes Equal, round and reactive pupils present Extrem: Other: Left upper extremity: elbow erythema, edema, warmth, tenderness. Areas of pustule drainage appreciated at elbow. Course Course Course Narrative: Patient is afebrile and hemodynamically stable. Will obtain EKG, laboratory studies with blood cultures, and XR Left Elbow. Labs reviewed. No leukocytosis. Mild baseline anemia. LA 1.6. Mild transaminitis (more than present 06/08/2024). CRP 9.98. Troponin 24.4, (previously 27.5 on 06/08/2024). XR Left Elbow reviewed: Extensive soft tissue infiltration distal arm, elbow and proximal forearm, suspect cellulitis. No evidence of osteomyelitis. Reevaluation(s) Reevaluation #1: Discussed with orthopedics. Images shared. Started on broad spectrum antibiotics with Cefepime and Vancomycin due to concern for likely septic elbow joint. Orthopedics evaluated at bedside, agree with IV antibiotics and recommend warm compresses. Plan: Admit to hospitalist Condition: Stable Medications Administered Discontinued Medications Generic Name Dose Route Start Last Admin Trade Name Freq PRN Reason Stop Dose Admin Cefepime HCl 2 gm in 50 mls @ 100 mls/hr 06/12/24 12:25 06/12/24 13:58 Maxipime IV 06/12/24 12:54 Infused ONCE ONE Infusion Vancomycin HCl 2,000 mg in 500 mls @ 250 mls/hr 06/12/24 12:25 06/12/24 13:03 Vancomycin/Ns IV 06/12/24 14:24 250 mls/hr ONCE ONE Administration Ondansetron HCl 4 mg 06/12/24 11:58 06/12/24 12:22 Ondansetron Hcl 4 Mg/2 Ml Vial IVPUSH 06/12/24 11:59 4 mg ONCE ONE Administration Medical Decision Making Lab Data 06/12/24 10:57 06/12/24 10:57 Labs: Lab Results 06/12/24 06/12/24 Range/Units 10:57 11:32 WBC 8.8 (4.8-10.8) X10*3/uL RBC 3.86 L (4.20-5.50) X10*6/uL Hgb 11.7 L (12.0-16.0) g/dl Hct 34.9 L (37.0-47.0) % MCV 90.4 (80.0-98.0) fL MCH 30.3 (27.0-33.0) pg MCHC 33.5 (31.0-35.0) g/dl RDW 14.0 (11.0-16.0) % Plt Count 335 (160-400) X10*3/uL MPV 10.0 (9.4-12.3) fL Immature Gran % (Auto) 0.3 (0.0-0.4) % Neut % (Auto) 78.3 H (45-73) % Lymph % (Auto) 16.2 L (20-40) % [place] % (Auto) 5.1 (2-11) % Eos % (Auto) 0.0 (0-4) % Baso % (Auto) 0.1 (0-2) % Lymph # (Auto) 1.4 (1.2-4.9) X10*3/uL [place] # (Auto) 0.5 (0.1-1.2) X10*3/uL Eos # (Auto) 0.0 (0.0-0.4) X10*3/uL Baso # (Auto) 0.0 (0.0-0.2) X10*3/uL Abs Immat Gran (auto) 0.03 (0.00-0.03) X10*3/uL Absolute Neuts (auto) 6.9 (2.0-8.3) x10*3/uL Absolute Nucleated RBC 0.000 (0.0-0.012) X10*3/uL Nucleated RBC % (auto) 0.0 (0.0-0.2) /100WBC ESR 91 H (0-20) MM/HR Sodium 136 (135-145) mmol/L Potassium 3.9 (3.3-5.1) mmol/L Chloride 103 (96-108) mmol/L Carbon Dioxide 24 (22-29) mmol/L Anion Gap 13 (12-20) BUN 15 (9-16) mg/dL Creatinine 0.84 (0.5-1.4) mg/dL Estim Creat Clear Calc 91.5 Estimated GFR > 60 Random Glucose 134 H (60-115) mg/dL Lactic Acid 1.6 (0.5-2.0) mmol/L Uric Acid 4.6 (2.4-5.7) mg/dL Calcium 9.6 (8.4-10.2) mg/dL Total Bilirubin 0.6 (0.0-1.0) mg/dL Direct Bilirubin 0.3 (0.0-0.5) mg/dL AST 65 H (5-31) U/L ALT 37 H (0-31) U/L Alkaline Phosphatase 117 (39-117) U/L Troponin I High Sens 24.4 H (<3.5-17.0) ng/L C-Reactive Protein 9.98 H (< or = 0.50) mg/dL B-Natriuretic Peptide 266 H (<100) pg/mL Total Protein 8.9 H (6.5-8.0) g/dL Albumin 3.9 (3.5-5.0) g/dL Independent Interpretation I performed an independent interpretation of an: EKG Interpretation: NSR 74BPM with deep inverted T waves in anterolateral leads Radiology Impression Discussion of test interpretation with radiology: I have reviewed the radiologist's reading. Radiologist Impression: EXAMINATION: XR ELBOW, LEFT CLINICAL INFORMATION: Swollen painful elbow COMPARISON: None available. TECHNIQUE: AP, lateral, and oblique views of the left elbow. FINDINGS: No fracture. Alignment is anatomic. Joint spaces are maintained. No bony erosions. There is dense soft tissue swelling posterior elbow and diffuse, heterogeneous soft tissue swelling about the distal arm and medial proximal forearm. No radiopaque foreign body. XR/XR elbow LT min 3V IMPRESSION: Extensive soft tissue infiltration distal arm, elbow and proximal forearm, suspect cellulitis. No radiographic evidence of osteomyelitis. Consider cross-sectional imaging, with either IV contrast enhanced CT or MRI. Electronically signed by: Clari Hardin MD 06/12/2024 12:22 PM [facility] Discharge Plan Discharge Clinical Impression: Septic arthritis of elbow, left, Cellulitis of left elbow Patient Disposition: Admitted As Inpatient Print Language: Panamanian
[2024-06-12 12:00] VITALS: BP 104/62; PULSE 72; RESP 16; O2SAT 97
[2024-06-12 12:03] LABS: B Type Natriuretic Peptide 266 pg/mL (<100)
[2024-06-12 12:21] LABS: Erythrocyte Sedimentation Rate 91 MM/HR (0-20)
[2024-06-12] MEDS: ondansetron HCL 4 MG/2 ML VIAL IVPUSH (12:22)
--- NOTE | 2024-06-12 12:22 | PC.NURSE ---
erythema marked on elbow. remains 2 small sites of drainage of white/sangious fluid.
[2024-06-12] MEDS: cefEPime HCl/D5W 2 GM/50 ML PIGGYBACK IV (13:03)
[2024-06-12] MEDS: vancomycin/NS 2,000 MG/500 ML PLAST..BAG 250 MG IV (13:03)
--- NOTE | 2024-06-12 14:03 | P.HPHOSP_ITS ---
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 for the last 3 days she noted more warmth, swelling and erythema with pain in her left elbow associated with generalized pain, nausea and vomiting. No fever but chills. In ER no leuckocytosis but elevasted ESR and CRP. XR is not showing any bone involvement at this point. Started on IV antibiotics and evaluated by orthopedic team in ED. Admitted for further work up and management. Review of Systems 2 Review of Systems: No fever but has chills and generalized weakness No chest pain, palpitation No shortness of breath or coughing No abdominal pain, nausea or vomiting No urinary symptoms erythema, swelling and pain in left elbow PMFSH Medical History Seropositive rheumatoid arthritis Skin lesion Anxiety Achilles tendinitis Superficial femoral artery occlusion Knee pain, left Depression Hx of peripheral pulmonary artery stenosis PAD (peripheral artery disease) History of chemotherapy Cancer of heart Bone cancer Lung cancer Bleeding hemorrhoid Degeneration, intervertebral disc, lumbar Chronic GERD Degeneration of intervertebral disc at C4-C5 level Osteoarthritis of spine with radiculopathy, lumbar region Fibromyalgia Esophageal dysphagia Vitamin D deficiency Systemic lupus erythematosus Seropositive rheumatoid arthritis Rheumatoid arthritis involving multiple sites Gallstones Stress incontinence in female Nocturia Urgency-frequency syndrome De Quervain's disease (tenosynovitis) Depressive disorder Acute arthritis Hodgkin disease Family History Maternal Grandmother Ovarian cancer Surgical History History of surgical removal of skin lesion (~07/13/23) History of angioplasty of vein History of biopsy H/O tubal ligation Hx of endoscopy Hx laparoscopic cholecystectomy Hx of colonoscopy History of esophagogastroduodenoscopy (EGD) History of repair of inguinal hernia History of lymph node dissection of left axilla Social History Household Members: Significant Other Housing: Apartment Are you a primary hospice care consultant to a significant other at home: No Alcohol intake: never Comment: son at bedside Patient Tobacco Use Status: Current everyday Tobacco user Tobacco use type: Cigarette Cigarette Packs Per Day: 1 Cigarettes Per Day: 20.0 Smoked in Last 30 Days: No Use of substances other than those prescribed or required for medical reasons: No Substance Use Type: Marijuana Advance Directives: Yes Advance Directives on File: Yes Advance Directives Date on File: 02/24/24 Do you have a plan to hurt others: No Plan service: No Current occupational status: disabled 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 Meds Allergies Allergy/AdvReac Type Severity Reaction Status Date / Time almond [ALMONDS] Allergy Severe ANAPHYLAXIS Verified 06/12/24 10:44 adhesive tape [ADHESIVE TAPE] Allergy Intermediate RASH Verified 06/12/24 10:44 morphine [MORPHINE] Allergy Intermediate GI UPSET, Verified 06/12/24 10:44 difficulty breathing leflunomide AdvReac Intermediate twitching Verified 06/12/24 10:44 tramadol [TRAMADOL] AdvReac Unknown NAUSEA & Verified 06/12/24 10:44 VOMITING Active Medications: Current Medications Vancomycin HCl (Vancomycin/Ns) 2,000 mg in 500 mls @ 250 mls/hr IV ONCE ONE Stop: 06/12/24 14:24 Last Admin: 06/12/24 13:03 Dose: 250 mls/hr Home Medications ?Medication ?Instructions ?Recorded ?Confirmed ?Last Taken ?Type alprazolam 1 mg tablet 1 mg PO BEDTIME PRN Anxiety 12/10/22 05/27/24 02/19/24 History albuterol sulfate 90 mcg/actuation 2 puff inhalation Q6H PRN Wheezing 02/20/24 05/27/24 Unknown History aerosol inhaler folic acid 1 mg tablet 1 mg PO DAILY 02/20/24 05/27/24 Unknown History benztropine 0.5 mg tablet 0.5 mg PO DAILY 04/23/24 05/27/24 Unknown History gabapentin 400 mg capsule 400 mg PO TID 04/23/24 05/27/24 Unknown History oxycodone-acetaminophen 7.5 mg-325 1 tab PO Q8H PRN severe pain 04/23/24 05/27/24 Unknown History mg tablet trazodone 150 mg tablet 150 mg PO BEDTIME PRN anxiety/sleep 04/23/24 05/27/24 Unknown History cholecalciferol (vitamin D3) 25 25 mcg PO DAILY 05/27/24 05/27/24 Unknown History mcg (1,000 unit) capsule (Vitamin D3) cyanocobalamin (vitamin B-12) 1,000 mcg IM QMONTH 05/27/24 05/27/24 05/01/24 History 1,000 mcg/mL injection solution docusate sodium 100 mg capsule 100 mg PO BID PRN Constipation 05/27/24 05/27/24 Unknown History (Colace) famotidine 20 mg tablet 20 mg PO BID 05/27/24 05/27/24 Unknown History polyethylene glycol 3350 17 17 g PO DAILY PRN Constipation 05/27/24 05/27/24 Unknown History gram/dose oral powder risperidone 1 mg tablet 0.5 mg PO DAILY PRN 05/27/24 05/27/24 Unknown History anxiety/agitation/paranoia risperidone 1 mg tablet 1 mg PO BEDTIME 05/27/24 05/27/24 Unknown History apixaban 5 mg tablet (Eliquis) 5 mg PO 06/12/24 Unknown History atorvastatin 80 mg tablet 80 mg PO DAILY 06/12/24 Unknown History cefadroxil 500 mg capsule 500 mg PO BID 06/12/24 Unknown History cilostazol 100 mg tablet 100 mg PO 06/12/24 Unknown History doxycycline hyclate 100 mg tablet 100 mg PO BID 06/12/24 Unknown History ferrous sulfate 325 mg (65 mg 325 mg PO QAM 06/12/24 Unknown History iron) tablet lidocaine-prilocaine 2.5 %-2.5 % topical Q8-12H PRN moderate pain 06/12/24 Unknown History topical cream sertraline 50 mg tablet (Zoloft) 75 mg PO DAILY 06/12/24 Unknown History umeclidinium 62.5 mcg/actuation 1 inh inhalation DAILY 06/12/24 Unknown History blister powder for inhalation (Incruse Ellipta) ursodiol 250 mg tablet 250 mg PO 06/12/24 Unknown History Physical Exam 2 Vital Signs and Narrative: Vital Signs: Last Vital Signs Temp 99.1 F 06/12/24 11:10 Pulse 72 06/12/24 12:00 Resp 16 06/12/24 12:00 BP 104/62 06/12/24 12:00 Pulse Ox 97 06/12/24 12:00 O2 Del Method Room Air 06/12/24 12:00 BMI result Body Mass Index 30.6 Const: Other: Constitutional : Awake, interactive, not in distress Neck : Normal inspection, Supple Cardiovascular : RRR, no JVP, no lower extremity edema Respiratory : good bilateral air entry, no crackles, wheezes or rhonchi Gastrointestinal: soft, lax, Normal bowel sounds, Non tender Skin : Warm, Dry, left elbow erythema, swelling and tenderness, joint movement range is full Neurological : Alert & oriented x3, No focal deficit Results Labs 06/12/24 10:57 06/12/24 10:57 Labs: Laboratory Results - last 24 hr 06/12/24 06/12/24 10:57 11:32 MCV 90.4 MCH 30.3 MCHC 33.5 RDW 14.0 Plt Count 335 MPV 10.0 Immature Gran % (Auto) 0.3 Neut % (Auto) 78.3 H Lymph % (Auto) 16.2 L [place] % (Auto) 5.1 Eos % (Auto) 0.0 Baso % (Auto) 0.1 Lymph # (Auto) 1.4 [place] # (Auto) 0.5 Eos # (Auto) 0.0 Baso # (Auto) 0.0 Abs Immat Gran (auto) 0.03 Absolute Neuts (auto) 6.9 Absolute Nucleated RBC 0.000 Nucleated RBC % (auto) 0.0 ESR 91 H Anion Gap 13 Estim Creat Clear Calc 91.5 Estimated GFR > 60 Random Glucose 134 H Lactic Acid 1.6 Calcium 9.6 Total Bilirubin 0.6 Direct Bilirubin 0.3 AST 65 H ALT 37 H Alkaline Phosphatase 117 Troponin I High Sens 24.4 H C-Reactive Protein 9.98 H B-Natriuretic Peptide 266 H Total Protein 8.9 H Albumin 3.9 Imaging Radiologist's Impressions: Impressions Elbow X-Ray 06/12/24 11:40 IMPRESSION: Extensive soft tissue infiltration distal arm, elbow and proximal forearm, suspect cellulitis. No radiographic evidence of osteomyelitis. Consider cross-sectional imaging, with either IV contrast enhanced CT or MRI. 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 LEft elbow cellulitis Infected rheumatoid Tophi ? less likely septic joint No evidence of septic joint per orthopedic evaluation Pending cultures Continue IV Vancomycin and Cefepime follow Vanco trough History of DVT, Eliquis Gastroesophageal reflux disease: On PPI Mood disorder: Continue home mood stabilizers COPD: No exacerbation during admission. Continue home inhalers Seropositive rheumatoid arthritis: On weekly methotrexate and Orencia infusion Long-term methotrexate use: On folic acid DVT prophylaxis: Eliquis The patient will need 2 overnight hospital stay for left elbow cellulitis pending clinical improvement, final blood cultures Quality Stroke Does the patient have a stroke diagnosis?: No VTE Prior VTE?: No VTE Risk Level:: Medical - low VTE Device Contraindication: Treatment Not Indicated VTE Drug Contraindication: N/A - Med Ordered
--- NOTE | 2024-06-12 14:08 | P.CONOP_ITS ---
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 for the last 3 days she noted more warmth, swelling and erythema with pain in her left elbow associated with generalized pain, nausea and vomiting. No fever but chills. In ER no leuckocytosis but elevasted ESR and CRP. XR is not showing any bone involvement at this point. Started on IV antibiotics and orthopedics was consulted for further recommendations Review of Systems 2 Review of Systems: Yes all other systems are reviewed and are negative PMFSH Past Medical History Medical History Seropositive rheumatoid arthritis Skin lesion Anxiety Achilles tendinitis Superficial femoral artery occlusion Knee pain, left Depression Hx of peripheral pulmonary artery stenosis PAD (peripheral artery disease) History of chemotherapy Cancer of heart Bone cancer Lung cancer Bleeding hemorrhoid Degeneration, intervertebral disc, lumbar Chronic GERD Degeneration of intervertebral disc at C4-C5 level Osteoarthritis of spine with radiculopathy, lumbar region Fibromyalgia Esophageal dysphagia Vitamin D deficiency Systemic lupus erythematosus Seropositive rheumatoid arthritis Rheumatoid arthritis involving multiple sites Gallstones Stress incontinence in female Nocturia Urgency-frequency syndrome De Quervain's disease (tenosynovitis) Depressive disorder Acute arthritis Hodgkin disease Family History Family History Maternal Grandmother Ovarian cancer Surgical History Surgical History History of surgical removal of skin lesion (~07/13/23) History of angioplasty of vein History of biopsy H/O tubal ligation Hx of endoscopy Hx laparoscopic cholecystectomy Hx of colonoscopy History of esophagogastroduodenoscopy (EGD) History of repair of inguinal hernia History of lymph node dissection of left axilla Social History Social History Household Members: Significant Other Housing: Apartment Are you a primary geriatric personal care aide to a significant other at home: No Alcohol intake: never Comment: son at bedside Patient Tobacco Use Status: Current everyday Tobacco user Tobacco use type: Cigarette Cigarette Packs Per Day: 1 Cigarettes Per Day: 20.0 Smoked in Last 30 Days: No Use of substances other than those prescribed or required for medical reasons: No Substance Use Type: Marijuana Advance Directives: Yes Advance Directives on File: Yes Advance Directives Date on File: 02/24/24 Do you have a plan to hurt others: No Plan service: No Current occupational status: disabled 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 Meds Allergies Allergy/AdvReac Type Severity Reaction Status Date / Time almond [ALMONDS] Allergy Severe ANAPHYLAXIS Verified 06/12/24 10:44 adhesive tape [ADHESIVE TAPE] Allergy Intermediate RASH Verified 06/12/24 10:44 morphine [MORPHINE] Allergy Intermediate GI UPSET, Verified 06/12/24 10:44 difficulty breathing leflunomide AdvReac Intermediate twitching Verified 06/12/24 10:44 tramadol [TRAMADOL] AdvReac Unknown NAUSEA & Verified 06/12/24 10:44 VOMITING Active Medications: Current Medications Vancomycin HCl (Vancomycin/Ns) 2,000 mg in 500 mls @ 250 mls/hr IV ONCE ONE Stop: 06/12/24 14:24 Last Admin: 06/12/24 13:03 Dose: 250 mls/hr Home Medications ?Medication ?Instructions ?Recorded ?Confirmed ?Last Taken ?Type alprazolam 1 mg tablet 1 mg PO BEDTIME PRN Anxiety 12/10/22 06/12/24 02/19/24 History albuterol sulfate 90 mcg/actuation 2 puff inhalation Q6H PRN Wheezing 02/20/24 06/12/24 Unknown History aerosol inhaler folic acid 1 mg tablet 1 mg PO DAILY 02/20/24 06/12/24 Unknown History benztropine 0.5 mg tablet 0.5 mg PO DAILY 04/23/24 06/12/24 Unknown History gabapentin 400 mg capsule 400 mg PO TID 04/23/24 06/12/24 Unknown History oxycodone-acetaminophen 7.5 mg-325 1 tab PO Q8H PRN severe pain 04/23/24 06/12/24 Unknown History mg tablet trazodone 150 mg tablet 150 mg PO BEDTIME PRN anxiety/sleep 04/23/24 06/12/24 Unknown History cholecalciferol (vitamin D3) 25 25 mcg PO DAILY 05/27/24 06/12/24 Unknown History mcg (1,000 unit) capsule (Vitamin D3) cyanocobalamin (vitamin B-12) 1,000 mcg IM QMONTH 05/27/24 06/12/24 05/01/24 History 1,000 mcg/mL injection solution docusate sodium 100 mg capsule 100 mg PO BID PRN Constipation 05/27/24 06/12/24 Unknown History (Colace) famotidine 20 mg tablet 20 mg PO BID 05/27/24 06/12/24 Unknown History polyethylene glycol 3350 17 17 g PO DAILY PRN Constipation 05/27/24 06/12/24 Unknown History gram/dose oral powder risperidone 1 mg tablet 0.5 mg PO DAILY PRN 05/27/24 06/12/24 Unknown History anxiety/agitation/paranoia risperidone 1 mg tablet 1 mg PO BEDTIME 05/27/24 06/12/24 Unknown History apixaban 5 mg tablet (Eliquis) 5 mg PO BID 06/12/24 06/12/24 Unknown History atorvastatin 80 mg tablet 80 mg PO DAILY 06/12/24 06/12/24 Unknown History cefadroxil 500 mg capsule 500 mg PO BID 06/12/24 06/12/24 Unknown History doxycycline hyclate 100 mg tablet 100 mg PO BID 06/12/24 06/12/24 Unknown History ferrous sulfate 325 mg (65 mg 325 mg PO QAM 06/12/24 06/12/24 Unknown History iron) tablet lidocaine-prilocaine 2.5 %-2.5 % 1 appl topical Q8-12H PRN moderate 06/12/24 06/12/24 Unknown History topical cream pain nicotine 7 mg/24 hr daily 1 patch transdermal Q24H 06/12/24 06/12/24 Unknown History transdermal patch pantoprazole 40 mg tablet,delayed 40 mg PO DAILY@0630 06/12/24 06/12/24 Unknown History release sertraline 50 mg tablet (Zoloft) 75 mg PO DAILY 06/12/24 06/12/24 Unknown History umeclidinium 62.5 mcg/actuation 1 inh inhalation DAILY 06/12/24 06/12/24 Unknown History blister powder for inhalation (Incruse Ellipta) ursodiol 250 mg tablet 250 mg PO BID 06/12/24 06/12/24 Unknown History vitamin A 3,000 mcg (10,000 unit) 1 cap PO DAILY 06/12/24 06/12/24 Unknown History capsule Physical Exam 2 Vital Signs: Vital Signs: Last Vital Signs Temp 99.1 F 06/12/24 11:10 Pulse 72 06/12/24 12:00 Resp 16 06/12/24 12:00 BP 104/62 06/12/24 12:00 Pulse Ox 97 06/12/24 12:00 O2 Del Method Room Air 06/12/24 12:00 BMI result Body Mass Index 30.6 Const: General: cooperative, healthy appearing and comfortable Extrem: Other: Left elbow has what appears to be several tophi with surrounding erythema. No significant joint effusion. No fluctulance. She is able to perform ROM of the elbow NVI. Results Labs 06/12/24 10:57 06/12/24 10:57 Labs: Abnormal lab results 06/12/24 06/12/24 Range/Units 10:57 11:32 RBC 3.86 L (4.20-5.50) X10*6/uL Hgb 11.7 L (12.0-16.0) g/dl Hct 34.9 L (37.0-47.0) % Neut % (Auto) 78.3 H (45-73) % Lymph % (Auto) 16.2 L (20-40) % ESR 91 H (0-20) MM/HR Random Glucose 134 H (60-115) mg/dL AST 65 H (5-31) U/L ALT 37 H (0-31) U/L Troponin I High Sens 24.4 H (<3.5-17.0) ng/L C-Reactive Protein 9.98 H (< or = 0.50) mg/dL B-Natriuretic Peptide 266 H (<100) pg/mL Total Protein 8.9 H (6.5-8.0) g/dL H & H 06/12/24 Range/Units 10:57 Hgb 11.7 L (12.0-16.0) g/dl Hct 34.9 L (37.0-47.0) % All other labs normal. Assessment and Plan (1) Cellulitis of left elbow: Status: Acute Plan Warm compress IV abx No surgical intervention at this time No evidence of septice joint given lack of pain with rom of elbow joint or joint effusion If any questions please feel free to re-consult. Procedures Date of Service Date of Service: 06/12/24
[2024-06-12 14:27] LABS: Uric Acid 4.6 mg/dL (2.4-5.7)
[2024-06-12] MEDS: 0.9 % Sodium Chloride Flush 3 ML SYRINGE IVFLUSH (15:56)
--- NOTE | 2024-06-12 18:27 | PC.NURSE ---
vancomycin still infusing d/t positional RAC and patient continues to move arm. educated on importance of keeping straight for now til medicine is done
--- NOTE | 2024-06-12 18:35 | PC.NURSE ---
patient very tearful and endorsing want to leave the hospital. staff electrical engineer used to deescalate patient and educate her on importance of staying in hospital for treatment. Patient acknowledges and states she will listen and stay for now. Patient cooperative and pleasant and independent with needs.
--- NOTE | 2024-06-12 19:14 | PHA.MEDREC ---
Addendum entered by Jesus Huggins [facility] 06/12/24 19:30: Med rec reviewed Original Note: Pharmacy Consult ? Medication Reconciliation Pharmacy has completed the medication reconciliation. Morning shift tried speaking to patient but patient is a poor historian and was not able to confirm her medications, passed off to me and I tried calling patient son and HCP around 5 and not the son or HCP answered so I left a voicemail for them both. I called [facility] and they were able to fax over a medication list to us. I called the HCP back around 6 and he answered but he did not know patients medications at all or when she last took them, only thing he knew was that the patient picked up some medications when the patient was discharged from [facility] in the last few weeks, but could not tell me what they were but stated she also fills at [facility]. I tried calling the son again as well around 1830 and was not successful with reaching him. I utilized the packet from [facility], past discharge packet from 05/27 and claims to confirm med rec.
[2024-06-12 19:25] VITALS: BP 105/63; PULSE 78; RESP 16; TEMP 36.9; O2SAT 97
[2024-06-12] MEDS: risperiDONE 0.5 MG TABLET PO (20:17)
[2024-06-12] MEDS: risperiDONE 1 MG TABLET PO (20:17)
[2024-06-12] MEDS: ALPRAZolam 0.5 MG TABLET PO (20:18)
[2024-06-12] MEDS: Atorvastatin Calcium 80 MG TABLET PO (20:18)
[2024-06-12] MEDS: traZODone HCL 50 MG TABLET 150 MG PO (20:19)
[2024-06-12] MEDS: Apixaban 5 MG TABLET PO (20:19)
--- NOTE | 2024-06-12 20:20 | PC.NURSE ---
pt states she is very anxious, hasn't gotten usual anxiety meds and requesting to AMA at this time and go home. reassured pt will be giving meds now, requested prn xanax as well. pt in agreement with staying. MD aware of situation in agreement for pt to receive meds as given per sep.
[2024-06-12 22:54] VITALS: BP 97/59; PULSE 89; RESP 19; TEMP 38; O2SAT 95
--- NOTE | 2024-06-12 22:54 | PC.NURSE ---
pt now febrile and hypotensive MD made aware. pt denies cp/sob/dizziness. suggested to MD to repeat trop as well as, no new orders at this time. pt does report L. elbow pain and requesting prn at this time.
[2024-06-12] MEDS: oxyCODONE HCl Immed Release 5 MG TABLET PO (23:17)
[2024-06-12] MEDS: Acetaminophen 325 MG TABLET 650 MG PO (23:17)
[2024-06-12] MEDS: LACTATED RINGERS 2583 ML IV (23:17)
[2024-06-12] MEDS: vancomycin HCL 1,000 MG in 0.9 % Sodium Chloride 250 ML 270 MG IV (23:18)
[2024-06-12 23:33] LABS: Lactic Acid 1.5 mmol/L (0.5-2.0)
[2024-06-13] VITALS (7 sets, daily range): BP systolic 108–115; BP diastolic 49–72; PULSE 70–84; RESP 16–20; TEMP 36.5–37.1; O2SAT 96–100
[2024-06-13] MEDS: cefEPime HCl/D5W 2 GM/50 ML PIGGYBACK IV (00:57)
--- NOTE | 2024-06-13 01:43 | PC.NURSE ---
late entry. pt vanco previously administered late d/t iv being in R. AC and pt bending arm. new iv established to R. hand and pt requesting for AC iv to be removed. vanco infused. per pharmacy to continue with admin of 2300 vanco dose as normal. ivf ordered for bp, pt ok with 2nd iv, 20g to R. forearm infusing LR. pt requested prn for pain and prn tylenol given for temp. lactic drawn as well. pt appears in nad speaking full clear sentences, skin warm and dry. L. elbow continues to drain with warm compresses.
[2024-06-13 06:18] LABS: MANUAL DIFF FLAG NO
[2024-06-13 06:28] LABS: Basophils Percent Auto 0.2 % (0-2); Eosinophils Percent Auto 0.2 % (0-4); Hematocrit 28.7 % (37.0-47.0); Hemoglobin 9.5 g/dl (12.0-16.0); Imm Gran Abs Auto 0.01 X10*3/uL (0.00-0.03); Imm Gran Pct Auto 0.2 % (0.0-0.4); Lymphocytes Absolute Auto 1.9 X10*3/uL (1.2-4.9); Mean Corpuscular HGB Conc 33.1 g/dl (31.0-35.0); Mean Corpuscular Volume 90.5 fL (80.0-98.0); Mean Platelet Volume 10.1 fL (9.4-12.3); Monocytes Absolute Auto 0.5 X10*3/uL (0.1-1.2); Monocytes Percent Auto 11.3 % (2-11); Neutrophils Absolute Auto 2.2 x10*3/uL (2.0-8.3); Neutrophils Percent Auto 48.1 % (45-73); Platelet Count 249 X10*3/uL (160-400); Red Blood Count 3.17 X10*6/uL (4.20-5.50); Red Cell Distribution Width 13.7 % (11.0-16.0); White Blood Count 4.7 X10*3/uL (4.8-10.8)
[2024-06-13 06:33] LABS: Anion Gap 13 (12-20); Blood Urea Nitrogen 8 mg/dL (9-16); Calcium 9.1 mg/dL (8.4-10.2); Carbon Dioxide 21 mmol/L (22-29); Chloride 108 mmol/L (96-108); Creatinine Clr Calc Pharmacy 114.7; Estimated Glomerular Filt Rate > 60; Glucose Random 97 mg/dL (60-115); Potassium 3.6 mmol/L (3.3-5.1); Sodium 138 mmol/L (135-145)
[2024-06-13] MEDS: Apixaban 5 MG TABLET PO (08:08)
[2024-06-13] MEDS: Metoprolol Tartrate 25 MG TABLET PO (08:08)
[2024-06-13] MEDS: Nicotine 14 MG PATCH.TD24 TRANSDERMA (08:11)
[2024-06-13] MEDS: 0.9 % Sodium Chloride Flush 3 ML SYRINGE IVFLUSH (08:13)
--- NOTE | 2024-06-13 08:47 | MHC.CM.PN ---
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 PCP is Dr. Mackenzie Estrada and SERVICENOW ADMINISTRATOR DEVELOPER will transport to home.
[2024-06-13 09:27] LABS: Vancomycin Random 13.4 mcg/mL (15-20)
--- NOTE | 2024-06-13 09:47 | HE.PHANOTE ---
RE: VANCO DOSING Random came back as 13.4 after 2 doses. Renal function is improving, continue with dose of 1000 mg q12h, next random is scheduled for 06/14/24@0900.
--- NOTE | 2024-06-13 10:36 | PM.DS ---
DS: Providers Provider Date of Service: 06/13/24 Date of admission: 06/12/24 15:15 Date of discharge: 06/13/24 Primary care physician: Mackenzie Estrada MD Consults: 06/12/24 15:22 Consult to Orthopedics Routine Consulting Provider: [facility] Reason for consultation: cellulitis, suspected septic joint DS: Diagnosis Discharge Diagnosis (1) Cellulitis of left elbow: Status: Acute DS: Summary Hospital Course Hospital Course: Admission note HPI A 48 years old lady with PMH of RA, PAD, CAD, BURTON, Fibromyalgia, HARINI, SLE, Hx Hodgkin among others who presents to the hospital with 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 for the last 3 days she noted more warmth, swelling and erythema with pain in her left elbow associated with generalized pain, nausea and vomiting. No fever but chills. In ER no leuckocytosis but elevasted ESR and CRP. XR is not showing any bone involvement at this point. Started on IV antibiotics and evaluated by orthopedic team in ED. Admitted for further work up and management. Hospital course The patient was admitted for treatment of LEft elbow cellulitis likely result of Infected rheumatoid Tophi. there was a concern of possible septic joint upon arrival to ED but she No evidence of septic joint were found per orthopedic evaluation as the patient had full range of motion in her elbow. blood cultures remains negative at time of discharge as she was treated with IV Vancomycin and Cefepime and made quicker than expected recoveray with resolution of erythema and swelling. She feels much better and wants to go home. Given her quicker than expected recovery i dont think she needs a 2nd night stay in the hospital and will be discharged home on Doxycycline and Cefadroxil for 7 more days. Discharge plan Keep the elbow clean and off pressure continue antibiotics as prescribed come back to ED if any fever, swelling or pain Time Attestation Discharge Coordination Time (in mins): 37 Quality: Safe Use of Opioids Does Pt have an Active Cancer Diagnosis on the Problem List?: No Quality: Stroke Does the patient have a stroke diagnosis?: No Physical Exam Vital Signs: Vital Signs: Last Vital Signs Temp 97.7 F 06/13/24 08:14 Pulse 77 06/13/24 08:14 Resp 18 06/13/24 08:14 BP 111/49 L 06/13/24 08:14 Pulse Ox 98 06/13/24 08:14 O2 Del Method Room Air 06/13/24 08:14 BMI result Body Mass Index 30.6 Const: Other: Constitutional : Awake, interactive, not in distress Neck : Normal inspection, Supple Cardiovascular : RRR, no JVP, no lower extremity edema Respiratory : good bilateral air entry, no crackles, wheezes or rhonchi Gastrointestinal: soft, lax, Normal bowel sounds, Non tender Skin : Warm, Dry, resolution of marker area of left elbow erythema, with no remaining swelling and very minimal tenderness, joint movement range is full Neurological : Alert & oriented x3, No focal deficit DS: Data Data Completed and Pending Completed studies during hospitalization [Text1]: Procedures Excision of Duodenum, Via Natural or Artificial Opening Endoscopic, Diagnostic (02/20/24) Excision of Esophagogastric Junction, Via Natural or Artificial Opening Endoscopic, Diagnostic (02/20/24) Excision of Large Intestine, Via Natural or Artificial Opening Endoscopic, Diagnostic (02/20/24) Labs on day of discharge: Laboratory Results - last 24 hr 06/12/24 06/12/24 06/12/24 10:57 11:32 23:12 WBC 8.8 RBC 3.86 L Hgb 11.7 L Hct 34.9 L MCV 90.4 MCH 30.3 MCHC 33.5 RDW 14.0 Plt Count 335 MPV 10.0 Immature Gran % (Auto) 0.3 Neut % (Auto) 78.3 H Lymph % (Auto) 16.2 L [place] % (Auto) 5.1 Eos % (Auto) 0.0 Baso % (Auto) 0.1 Lymph # (Auto) 1.4 [place] # (Auto) 0.5 Eos # (Auto) 0.0 Baso # (Auto) 0.0 Abs Immat Gran (auto) 0.03 Absolute Neuts (auto) 6.9 Absolute Nucleated RBC 0.000 Nucleated RBC % (auto) 0.0 ESR 91 H Sodium 136 Potassium 3.9 Chloride 103 Carbon Dioxide 24 Anion Gap 13 BUN 15 Creatinine 0.84 Estim Creat Clear Calc 91.5 Estimated GFR > 60 Random Glucose 134 H Lactic Acid 1.6 1.5 Uric Acid 4.6 Calcium 9.6 Total Bilirubin 0.6 Direct Bilirubin 0.3 AST 65 H ALT 37 H Alkaline Phosphatase 117 Troponin I High Sens 24.4 H C-Reactive Protein 9.98 H B-Natriuretic Peptide 266 H Total Protein 8.9 H Albumin 3.9 Random Vancomycin 06/13/24 06/13/24 05:58 09:09 WBC 4.7 L RBC 3.17 L Hgb 9.5 L Hct 28.7 L MCV 90.5 MCH 30.0 MCHC 33.1 RDW 13.7 Plt Count 249 D MPV 10.1 Immature Gran % (Auto) 0.2 Neut % (Auto) 48.1 Lymph % (Auto) 40.0 [place] % (Auto) 11.3 H Eos % (Auto) 0.2 Baso % (Auto) 0.2 Lymph # (Auto) 1.9 [place] # (Auto) 0.5 Eos # (Auto) 0.0 Baso # (Auto) 0.0 Abs Immat Gran (auto) 0.01 Absolute Neuts (auto) 2.2 Absolute Nucleated RBC 0.000 Nucleated RBC % (auto) 0.0 ESR Sodium 138 Potassium 3.6 Chloride 108 Carbon Dioxide 21 L Anion Gap 13 BUN 8 L Creatinine 0.67 Estim Creat Clear Calc 114.7 Estimated GFR > 60 Random Glucose 97 Lactic Acid Uric Acid Calcium 9.1 Total Bilirubin Direct Bilirubin AST ALT Alkaline Phosphatase Troponin I High Sens C-Reactive Protein B-Natriuretic Peptide Total Protein Albumin Random Vancomycin 13.4 L Imaging XR : Radiologist's impression: ITS Impressions Elbow X-Ray 06/12/24 11:40 IMPRESSION: Extensive soft tissue infiltration distal arm, elbow and proximal forearm, suspect cellulitis. No radiographic evidence of osteomyelitis. Consider cross-sectional imaging, with either IV contrast enhanced CT or MRI. Electronically signed by: Clari Hardin MD 06/12/2024 12:22 PM [facility] [place] Plan Discharge Anticipated Discharge Date/Time: 06/13/24 10:31 Patient Disposition: Home, Self-Care Discharge Diagnosis: Cellulitis Referrals: Mackenzie Estrada MD [Primary Care Provider] - 1 Week Discharge Medications: Continued ascorbic acid (vitamin C) [Vitamin C] 500 mg tablet 1,000 mg PO QAM Qty: 180 2RF lidocaine [Lidoderm] 5 % adhesive patch,medicated 1 patch topical DAILY MDD remove after 12 hours PRN (Reason: pain) Qty: 30 0RF Rx Instructions: leave on most painful area for up to 12 hrs atorvastatin 80 mg tablet 80 mg PO DAILY lidocaine-prilocaine 2.5-2.5 % cream 1 appl topical Q8-12H PRN (Reason: moderate pain) ferrous sulfate 325 mg (65 mg iron) tablet 325 mg PO QAM ursodiol 250 mg tablet 250 mg PO BID sertraline [Zoloft] 50 mg tablet 75 mg PO DAILY Eliquis 5 mg tablet 5 mg PO BID Incruse Ellipta 62.5 mcg/actuation blister with device 1 inh INHALATION DAILY vitamin A 3,000 mcg (10,000 unit) capsule 1 cap PO DAILY pantoprazole 40 mg tablet,delayed release (DR/EC) 40 mg PO DAILY@0630 nicotine 7 mg/24 hr Patch 24 Hour 1 patch TRANSDERMAL Q24H cefadroxil 500 mg capsule 500 mg PO BID 7 Days Qty: 14 0RF doxycycline hyclate 100 mg tablet 100 mg PO BID 7 Days Qty: 14 0RF albuterol sulfate 90 mcg/actuation Hfa Aerosol Inhaler 2 puff INHALATION Q6H PRN (Reason: Wheezing) folic acid 1 mg tablet 1 mg PO DAILY famotidine 20 mg tablet 20 mg PO BID polyethylene glycol 3350 17 gram/dose powder 17 g PO DAILY PRN (Reason: Constipation) risperidone 1 mg tablet 1 mg PO BEDTIME risperidone 1 mg tablet 0.5 mg PO DAILY PRN (Reason: anxiety/agitation/paranoia) cholecalciferol (vitamin D3) [Vitamin D3] 25 mcg (1,000 unit) capsule 25 mcg PO DAILY docusate sodium [Colace] 100 mg capsule 100 mg PO BID PRN (Reason: Constipation) cyanocobalamin (vitamin B-12) 1,000 mcg/mL Solution 1,000 mcg IM QMONTH acetaminophen 325 mg Tablet 650 mg PO Q6H PRN (Reason: Pain, Mild (Pain Scale 1-3), fever or headache) Qty: 30 0RF clopidogrel 75 mg Tablet 75 mg PO DAILY Qty: 30 0RF nitroglycerin [Nitrostat] 0.4 mg Tablet, Sublingual 0.4 mg sublingual Q5MX3 PRN (Reason: Chest Pain) Qty: 30 0RF aspirin 81 mg Tablet,Chewable 81 mg PO DAILY Qty: 30 0RF metoprolol tartrate 25 mg Tablet 25 mg PO BID Qty: 60 0RF Protocol: Hold for SBP/HR < HOLD for SBP < : 90 HOLD for HR < : 60 alprazolam 1 mg tablet 1 mg PO BEDTIME PRN (Reason: Anxiety) trazodone 150 mg tablet 150 mg PO BEDTIME PRN (Reason: anxiety/sleep) benztropine 0.5 mg tablet 0.5 mg PO DAILY oxycodone-acetaminophen 7.5-325 mg tablet 1 tab PO Q8H PRN (Reason: severe pain) gabapentin 400 mg capsule 400 mg PO TID Discharge Orders: Discharge Order (Routine); Ordered 06/13/24 Ordered By: Reg Nazario Diet: Diabetic diet Activity on Discharge: As tolerated Stand Alone Forms: Patient Portal Discharge page Print Language: Vincentian Care Plan Goals: Keep the elbow clean and off pressure continue antibiotics as prescribed come back to ED if any fever, swelling or pain Health Concerns: Cellulitis Plan of Treatment: Antibiotics Assessment: as above
--- NOTE | 2024-06-13 10:41 | MHC.CM.PN ---
Patient has been medically cleared for dc to home today, self care.
== END 2024-06-13 15:47 | disposition home or self-care (01) | DRG 383 ==
LOC: HO.ED 13:21 → HO.EDOVER 15:47
PROVIDERS: Physician Assistant Medical; Student in an Organized Health Care Education/Training Program; Admitting Provider Student in an Organized Health Care Education/Training Program; Emergency Provider Emergency Medicine; PCP General Practice; Visit Provider Student in an Organized Health Care Education/Training Program
DX: L03.114 Cellulitis of left upper limb (principal); M32.9 Systemic lupus erythematosus, unspecified; E61.1 Iron deficiency; M1A.4 Other secondary chronic gout; M05.9 Rheumatoid arthritis with rheumatoid factor, unspecified; I25.10 Atherosclerotic heart disease of native coronary artery without angina pectoris; Z95.5 Presence of coronary angioplasty implant and graft; Z79.01 Long term (current) use of anticoagulants; Z79.02 Long term (current) use of antithrombotics/antiplatelets; Z79.899 Other long term (current) drug therapy
CPT/HCPCS: 36415; 73080; 80048; 80076; 80202; 83605; 83880; 84484; 84550; 85025; 85652; 86140; 87040; 93005; 99285; J0692; J2405; J3370; J7120

== ENCOUNTER → 2024-06-12 10:49 | Outpatient (BNV) | payer MEDICAID, SELFPAY | PROVIDERS: Admitting Provider Student in an Organized Health Care Education/Training Program; Emergency Provider Emergency Medicine; PCP General Practice; Visit Provider Internal Medicine Cardiovascular Disease | DX: I44.4 Left anterior fascicular block (principal) | CPT/HCPCS: 93010 ==

== ENCOUNTER → 2024-06-12 11:01 | Outpatient (BNV) | payer MEDICAID, SELFPAY | PROVIDERS: Emergency Provider Emergency Medicine; PCP General Practice; Visit Provider Student in an Organized Health Care Education/Training Program | DX: L03.114 Cellulitis of left upper limb (principal) | CPT/HCPCS: 99223; 99239 ==

== ENCOUNTER → 2024-06-12 15:15 | Outpatient (BNV) | payer MEDICAID, SELFPAY | PROVIDERS: Admitting Provider Student in an Organized Health Care Education/Training Program; Emergency Provider Emergency Medicine; PCP General Practice; Visit Provider Physician Assistant | DX: L03.114 Cellulitis of left upper limb (principal) | CPT/HCPCS: 99222 ==

== ENCOUNTER 2024-06-18 13:57 | Outpatient (AMB) | payer MEDICAID, SELFPAY ==
--- NOTE | 2024-06-18 14:55 | MHC.OFFVIS ---
Vital Signs 06/18/24 14:56 Weight 195 lb 12.328 oz BP 120/66 Blood Pressure Location Lt brachial Pulse 76 Pulse Oximetry (%) 97 Intake Visit Reasons: f/u after cath Allergies almond [ALMONDS] Allergy (Severe, Verified 06/12/24 10:44) ANAPHYLAXIS adhesive tape [ADHESIVE TAPE] Allergy (Intermediate, Verified 06/12/24 10:44) RASH morphine [MORPHINE] Allergy (Intermediate, Verified 06/12/24 10:44) GI UPSET, difficulty breathing leflunomide Adverse Reaction (Intermediate, Verified 06/12/24 10:44) twitching tramadol [TRAMADOL] Adverse Reaction (Unknown, Verified 06/12/24 10:44) NAUSEA & VOMITING Medication List - Last Reconciled 06/18/24 by GENNA Espinoza acetaminophen 650 mg (2 x 325 mg) PO Q6H PRN albuterol sulfate 90 mcg/actuation 2 puffs inhalation Q6H PRN alprazolam 1 mg PO BEDTIME PRN apixaban (Eliquis) 5 mg PO BID ascorbic acid (vitamin C) (Vitamin C) 1,000 mg (2 x 500 mg) PO QAM atorvastatin 80 mg PO DAILY benztropine 0.5 mg PO DAILY cefadroxil 500 mg PO BID 7 days cholecalciferol (vitamin D3) (Vitamin D3) 25 mcg PO DAILY clopidogrel 75 mg PO DAILY cyanocobalamin (vitamin B-12) 1,000 mcg IM QMONTH docusate sodium (Colace) 100 mg PO BID PRN doxycycline hyclate 100 mg PO BID 7 days famotidine 20 mg PO BID ferrous sulfate 325 mg PO QAM folic acid 1 mg PO DAILY gabapentin 400 mg PO TID lidocaine 5% (Lidoderm) 1 patch topical DAILY PRN MDD remove after 12 hours lidocaine-prilocaine 2.5-2.5 % 1 appl topical Q8-12H PRN metoprolol tartrate 25 mg See Protocol PO BID nicotine 1 patch transdermal Q24H nitroglycerin (Nitrostat) 0.4 mg sublingual Q5MX3 PRN oxycodone-acetaminophen 7.5-325 mg 1 tab PO Q8H PRN pantoprazole 40 mg PO DAILY@0630 polyethylene glycol 3350 17 grams PO DAILY PRN risperidone 1 mg PO BEDTIME risperidone 0.5 mg PO DAILY PRN sertraline (Zoloft) 75 mg PO DAILY trazodone 150 mg PO BEDTIME PRN umeclidinium 62.5 mcg/actuation (Incruse Ellipta) 1 inh inhalation DAILY ursodiol 250 mg PO BID vitamin A 1 cap PO DAILY HPI HPI f/u after cath: Details: Ginette is a 48-year-old female with past medical history of fibromyalgia, rheumatoid arthritis, SLE, non-Hodgkin's lymphoma 2004, smoking, PAD, DVT and on Eliquis, who was being evaluated for chest discomfort then presented to the ER for evaluation of different chest discomfort and ruled in for NSTEMI. She was transferred to [facility] where cardiac catheterization showed 80% mid LAD stenosis and stent was placed. She now presents for follow-up. Today she reports that she continues to have some discomfort in her left lateral neck region. She states this area is sore to palpation and hurts more when she moves her neck side to side. She tells me at the time of the NSTEMI that her symptom was epigastric to mid chest and different from what she had previously been reporting. She has not had that symptom again since the stent was placed. She is having issues with her rheumatoid arthritis and lupus. She does not believe that she will be able to do cardiac rehab. She denies shortness of breath at rest or with activity. No PND, orthopnea or ankle edema. No lightheadedness, presyncope, syncope, recent falls. She is mostly sedentary and ambulates with a cane or a walker depending on where she is. She takes her meds as directed. She is still working on smoking cessation and is currently using nicotine patches. [facility] Medical History Iron deficiency Seropositive rheumatoid arthritis Skin lesion Anxiety Achilles tendinitis Superficial femoral artery occlusion Knee pain, left Depression Hx of peripheral pulmonary artery stenosis PAD (peripheral artery disease) History of chemotherapy Cancer of heart Bone cancer Lung cancer Bleeding hemorrhoid Degeneration, intervertebral disc, lumbar Chronic GERD Degeneration of intervertebral disc at C4-C5 level Osteoarthritis of spine with radiculopathy, lumbar region Fibromyalgia Esophageal dysphagia Vitamin D deficiency Systemic lupus erythematosus Seropositive rheumatoid arthritis Rheumatoid arthritis involving multiple sites Gallstones Stress incontinence in female Nocturia Urgency-frequency syndrome De Quervain's disease (tenosynovitis) Depressive disorder Acute arthritis Hodgkin disease Surgical History History of surgical removal of skin lesion (~07/13/23) History of angioplasty of vein History of biopsy H/O tubal ligation Hx of endoscopy Hx laparoscopic cholecystectomy Hx of colonoscopy History of esophagogastroduodenoscopy (EGD) History of repair of inguinal hernia History of lymph node dissection of left axilla Family History Maternal Grandmother Ovarian cancer Social History Household Members: Significant Other Housing: Apartment Are you a primary pharmacist critical care to a significant other at home: No Alcohol intake: never Comment: son at bedside Patient Tobacco Use Status: Never used Tobacco Tobacco use type: Cigarette Cigarette Packs Per Day: 1 Cigarettes Per Day: 20.0 Substance Use Type: Marijuana Advance Directives Date on File: 02/24/24 service: No Current occupational status: disabled 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 of Systems Const All systems reviewed & are unremarkable except as noted in HPI and below Card Denies chest pain, Denies chest pain at rest, Denies chest pain with activity, Denies rapid heart rate, Denies leg edema, Denies palpitations, Denies dyspnea, Denies dyspnea on exertion and Denies orthopnea Resp Denies dyspnea and Denies dyspnea on exertion Denies no additional complaints Musc Details: arthritis Reports abnormal gait, Reports joint swelling and Reports limited range of motion Neuro Reports abnormal gait Endo Denies palpitations Physical Exam Vital Signs: Last Vital Signs Pulse 76 06/18/24 14:56 BP 120/66 06/18/24 14:56 Pulse Ox 97 06/18/24 14:56 Const Other: ambulates slow with cane. General: cooperative and no acute distress; No comfortable Orientation/consciousness: patient oriented x3 Neck Neck: Yes normal visual inspection and Yes no JVD Resp Effort & Inspection: normal respiratory effort Auscultation: clear to auscultation bilaterally, no crackles, no rales, no rhonchi and no wheezes Cardio Jugular venous distension: no JVD Rate: regular rate Rhythm: regular rhythm Heart sounds: S1 normal heart sound present, S2 normal heart sound present, no murmurs and no rubs Neuro General: patient oriented x3 Extrem Other: Right radial catheterization site well healed, easily palpable radial pulse, right hand assessment normal. General: Yes normal to inspection Psych Appearance: grossly normal Mental Status: mental status grossly normal Speech and movement: Normal speech and movement present Assessment & Plan Assessment & Plan (1) Chest pain, precordial: Code(s): R07.2 - Precordial pain Category: Medical Plan: Prior reports of Atypical left-sided chest discomfort. ER evaluation last spring and ruled out for ACS. Her EKG does show incomplete right bundle branch block and left anterior fascicular block. She has no known history of heart disease but it does run in the family. She has Cardiac risk factors of rheumatoid arthritis, sedentary, smoking, PAD. Echocardiogram was done on 11/2023 showing EF 55-60%, basal inferior akinetic, mild MR and mild TR. A pharmacological nuclear stress test was done on 03/09/2024 which was nondiagnostic, EF 63%. A CTA of the coronary arteries was pending. She then presented to [facility] on 05/26/2024 with intermittent chest pressure. She ruled in for NSTEMI and was transferred to [facility] for cardiac catheterization which showed mid LAD 80% stenosis, stent was placed, LV gram showed EF 40-50%. Today she reports she has not had recurrent mid chest pressure. She points to her epigastric and lower sternal region as the area for her symptom. She continues to have discomfort along the left side of her neck which was a prior report. This pain is worse with palpation and movement and is noncardiac. Cardiac findings reviewed with her in detail. Continue on current med management with Eliquis and Plavix. Plavix will be uninterrupted for 1 year. She is no longer on aspirin. Continue metoprolol. Continue high-dose atorvastatin with ideal LDL goal less than 70. Labs done on 05/27/2024 showed LDL 123. It looks like high-dose statin was added at that time. Plan for fasting lipid at next visit. Signs and symptoms of angina reviewed with her. Emergency care if ever needed for symptoms. Cardiology follow-up 3 months, sooner if needed. (2) Abnormal echocardiogram findings without diagnosis: Code(s): R93.1 - Abnormal findings on diagnostic imaging of heart and coronary circulation Category: Medical Plan: Wall motion abnormality noted on echocardiogram. Mildly reduced EF noted at time of cardiac catheterization. No signs of heart failure on examination. (3) Polyarthropathy: Code(s): M13.0 - Polyarthritis, unspecified Category: Medical Plan: Related to rheumatoid arthritis. Could be contributing to some atypical chest discomfort. (4) PAD (peripheral artery disease): Comment: 04/21/2022 - diagnostic angiogram - left common iliac occlusion, right SFA stenosis at [facility] 06/09/2022 - right SFA angioplasty and stent via radial approach Code(s): I73.9 - Peripheral vascular disease, unspecified Category: Medical Plan: Record indicates history of left SFA stenosis with angioplasty and stent. She is mostly sedentary. She has joint pains without clear claudication. She is on Plavix and statin. She follows with Dr. Hughes. (5) Fibromyalgia: Code(s): M79.7 - Fibromyalgia Category: Medical Plan: As above (6) Abnormal EKG: Code(s): R94.31 - Abnormal electrocardiogram [ECG] [EKG] Category: Medical Plan: As above. Plan Time spent on chart review, documentation, interview and assessment Coding Level of Care Code Est Pt Level 4 (43854) Diagnoses Chest pain, precordial R07.2 Abnormal echocardiogram findings without diagnosis R93.1 Polyarthropathy M13.0 PAD (peripheral artery disease) I73.9 Fibromyalgia M79.7 Abnormal EKG R94.31 Time Spent (min) 30
[2024-06-18 14:56] VITALS: BP 120/66; PULSE 76; O2SAT 97
== END 2024-06-18 15:20 | disposition home or self-care (01) ==
PROVIDERS: PCP General Practice; Visit Provider Nurse Practitioner Family
DX: R07.2 Precordial pain (principal); R93.1 Abnormal findings on diagnostic imaging of heart and coronary circulation; M13.0 Polyarthritis, unspecified; I73.9 Peripheral vascular disease, unspecified; M79.7 Fibromyalgia; R94.31 Abnormal electrocardiogram [ECG] [EKG]
CPT/HCPCS: 99214

== ENCOUNTER → 2024-06-18 13:57 | Outpatient (BNVA) | payer MEDICAID, SELFPAY | PROVIDERS: PCP General Practice; Visit Provider Nurse Practitioner Family | DX: R07.2 Precordial pain (principal); R93.1 Abnormal findings on diagnostic imaging of heart and coronary circulation; M13.0 Polyarthritis, unspecified; I73.9 Peripheral vascular disease, unspecified; M79.7 Fibromyalgia; R94.31 Abnormal electrocardiogram [ECG] [EKG] | CPT/HCPCS: 99212 ==

== ENCOUNTER 2024-07-03 14:09 | Outpatient (AMB) | payer MEDICAID, SELFPAY ==
--- NOTE | 2024-07-03 14:31 | MHC.OFFVIS ---
Vital Signs 07/03/24 14:32 Weight 191 lb 12.835 oz BP 116/70 Blood Pressure Location Lt brachial Position Sitting Pulse 79 Pulse Source Pulse Oximeter Pulse Oximetry (%) 95 Oxygen Delivery Method Room Air Intake Visit Reasons: RA / discuss orencia infusions Intake Note: Patient present today to discuss orencia infusions. Supervisor Type Disk Quality Control Required: Yes Supervisor Type Disk Quality Control Language: Tenterer Services: Supervisor Type Disk Quality Control Present Information Interpreted: non-clinical & clinical Accompanied by: Self / Same As Patient Allergies almond [ALMONDS] Allergy (Severe, Verified 07/03/24 14:44) ANAPHYLAXIS adhesive tape [ADHESIVE TAPE] Allergy (Intermediate, Verified 07/03/24 14:44) RASH morphine [MORPHINE] Allergy (Intermediate, Verified 07/03/24 14:44) GI UPSET, difficulty breathing leflunomide Adverse Reaction (Intermediate, Verified 07/03/24 14:44) twitching tramadol [TRAMADOL] Adverse Reaction (Unknown, Verified 07/03/24 14:44) NAUSEA & VOMITING Medication List - Last Reconciled 07/03/24 by Simon Elkins MD acetaminophen 650 mg (2 x 325 mg) PO Q6H PRN albuterol sulfate 90 mcg/actuation 2 puffs inhalation Q6H PRN alprazolam 1 mg PO BEDTIME PRN apixaban (Eliquis) 5 mg PO BID ascorbic acid (vitamin C) (Vitamin C) 1,000 mg (2 x 500 mg) PO QAM atorvastatin 80 mg PO DAILY benztropine 0.5 mg PO DAILY cefadroxil 500 mg PO BID 7 days cholecalciferol (vitamin D3) (Vitamin D3) 25 mcg PO DAILY clopidogrel 75 mg PO DAILY cyanocobalamin (vitamin B-12) 1,000 mcg IM QMONTH docusate sodium (Colace) 100 mg PO BID PRN doxycycline hyclate 100 mg PO BID 7 days famotidine 20 mg PO BID ferrous sulfate 325 mg PO QAM folic acid 1 mg PO DAILY gabapentin 400 mg PO TID lidocaine 5% (Lidoderm) 1 patch topical DAILY PRN MDD remove after 12 hours lidocaine-prilocaine 2.5-2.5 % 1 appl topical Q8-12H PRN methotrexate sodium 25 mg (10 x 2.5 mg) PO QWEEK metoprolol tartrate 25 mg See Protocol PO BID nicotine 1 patch transdermal Q24H nitroglycerin (Nitrostat) 0.4 mg sublingual Q5MX3 PRN oxycodone-acetaminophen 7.5-325 mg 1 tab PO Q8H PRN pantoprazole 40 mg PO DAILY@0630 polyethylene glycol 3350 17 grams PO DAILY PRN risperidone 1 mg PO BEDTIME risperidone 0.5 mg PO DAILY PRN sertraline (Zoloft) 75 mg PO DAILY trazodone 150 mg PO BEDTIME PRN umeclidinium 62.5 mcg/actuation (Incruse Ellipta) 1 inh inhalation DAILY ursodiol 250 mg PO BID vitamin A 1 cap PO DAILY HPI Comments Details: 48-year-old female with seropositive nodular RA returns for follow-up. She started Orencia infusions. She received 3 doses so far. Just before she started Orencia she discontinued methotrexate. It is unclear why that happened. Unfortunately also patient was admitted to the hospital she was found to have coronary artery disease and had a stent placed. She has quit smoking. She was admitted last month with an infection in her left elbow. She was treated as cellulitis with antibiotics and discharged. She states that she continues to have multiple joint pains. They have improved since she started Orencia most recent hx by Dr. Ram 07/2023:The patient with RA returns today with complaints of pain in the right wrist. Her son accompanies her today and translates for us. She had called us earlier in the week with a flare-up of symptoms in the elbow, wrist and shoulder on the right. At her last visit a month ago I had prescribed baricitinib but for some reason she has yet to receive it. She tells me now the delivery is for tomorrow or the next day. She remains on ibuprofen 800 b.i.d., acetaminophen 1 or 2 b.i.d., methotrexate 20 mg weekly, folic acid 1 mg daily, gabapentin 400 mg t.i.d. and Percocet prescribed by her primary doctor t.i.d. When she had called earlier this week we had her increase her prednisone up to 10 b.i.d. from 5 mg b.i.d. The other joints that hurt her today include the right hand, both knees - left greater than right, and right ankle.She has an orth0 visit latrer today to discuss the left knee. PFSH Medical History Iron deficiency Seropositive rheumatoid arthritis Skin lesion Anxiety Achilles tendinitis Superficial femoral artery occlusion Knee pain, left Depression Hx of peripheral pulmonary artery stenosis PAD (peripheral artery disease) History of chemotherapy Cancer of heart Bone cancer Lung cancer Bleeding hemorrhoid Degeneration, intervertebral disc, lumbar Chronic GERD Degeneration of intervertebral disc at C4-C5 level Osteoarthritis of spine with radiculopathy, lumbar region Fibromyalgia Esophageal dysphagia Vitamin D deficiency Systemic lupus erythematosus Seropositive rheumatoid arthritis Rheumatoid arthritis involving multiple sites Gallstones Stress incontinence in female Nocturia Urgency-frequency syndrome De Quervain's disease (tenosynovitis) Depressive disorder Acute arthritis Hodgkin disease Surgical History History of heart surgery History of surgical removal of skin lesion (~07/13/23) History of angioplasty of vein History of biopsy H/O tubal ligation Hx of endoscopy Hx laparoscopic cholecystectomy Hx of colonoscopy History of esophagogastroduodenoscopy (EGD) History of repair of inguinal hernia History of lymph node dissection of left axilla Family History Maternal Grandmother Ovarian cancer Social History Household Members: Significant Other Housing: Apartment Are you a primary day care assistant to a significant other at home: No Alcohol intake: never Comment: son at bedside Patient Tobacco Use Status: Never used Tobacco Tobacco use type: Cigarette Cigarette Packs Per Day: 1 Cigarettes Per Day: 20.0 Substance Use Type: Marijuana Advance Directives Date on File: 02/24/24 service: No Current occupational status: disabled 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 of Systems Musc Reports arthralgias, Reports joint swelling, Reports limited range of motion and Reports stiffness Skin/Breast Reports lesions Physical Exam Vital Signs: Last Vital Signs Pulse 79 07/03/24 14:32 BP 116/70 07/03/24 14:32 Pulse Ox 95 07/03/24 14:32 Oxygen Delivery Method Room Air 07/03/24 14:32 Const General: cooperative, healthy appearing and comfortable Nutritional Appearance: obese morbidly obese Orientation/consciousness: patient oriented x3 Limitations: ambulation with cane HEENT Head: Yes normocephalic and Yes atraumatic Mouth: moist mucous membranes Resp Effort & Inspection: normal respiratory effort and able to speak in complete sentences Auscultation: clear to auscultation bilaterally Skin Other: Firm nodular swelling on extensor aspect of both elbows and associated calcified masses There is no inflammation today Neuro General: patient oriented x3 Extrem Other: Bilateral wrist swelling, tenderness and pain with flexion-extension Bilateral diffusely tender MCPs Significantly swollen and tender right 3rd PIP Right 5th PIP tenderness without swelling Normal range of motion of elbows and shoulders without pain No knee swelling, warmth or pain with flexion-extension Bilateral ankle synovitis Assessment & Plan Assessment & Plan (1) Seropositive rheumatoid arthritis: Comment: [id number]++ On prednisone throughout until it was discontinued 10/2023 due to left femur avascular necrosis methotrexate and hydroxychloroquine ?2019 Xeljanz 05/2020-08/2020(ineffective) 2020 methotrexate and Humira(HCQ stopped - ?vision changes). 06/2022 Humira stopped due to poor repsonse 06/2022 methotrexate and Actemra 12/2022: Actemra stopped by the patient. She had some leg swelling as well. 03/10/2023 and 03/24/23: 1 g on each day rituximab administered Olumiant 08/2023 effective Leflunomide added 01/2024 ineffective and caused twitching Orencia infusions 05/2024 Code(s): M05.9 - Rheumatoid arthritis with rheumatoid factor, unspecified Category: Medical Plan: This is a 48-year-old female with seropositive nodular RA who presents for follow-up. She started Orencia infusions 05/2024. On exam patient looks much improved. The synovitis has improved. She continues however to have multiple swollen and tender joints. For unclear reasons her methotrexate was discontinued before she started her infusions. Restart methotrexate at 25 mg p.o. 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 Rheumatoid factor and CCP antibody markedly positive. This looks more like picture of seropositive RA. Code(s): M32.9 - Systemic lupus erythematosus, unspecified Category: Medical Qualifiers: Systemic lupus erythematosus type: unspecified Systemic lupus erythematosus organ involvement: unspecified Qualified Code(s): M32.9 - Systemic lupus erythematosus, unspecified Plan: I do not see any features of active SLE. She has a positive dsDNA with no specific features of lupus. Will continue to monitor patient for development of features of active SLE. (5) Avascular necrosis of left femoral head: Code(s): M87.052 - Idiopathic aseptic necrosis of left femur Category: Medical Plan: Continue to follow-up with orthopedics Avoid glucocorticoids as much as possible (6) Skin lesion: Code(s): L98.9 - Disorder of the skin and subcutaneous tissue, unspecified Category: Medical Plan: Patient has calcified masses on both her elbows. That mass was infected and she was treated as cellulitis last month in the hospital. DX includes rheumatoid nodule with calcinosis cutis on top, possible gouty tophi. No history of gout however. I will check uric acid level. 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 Uric Acid 3 Months M10.9 - Gout, unspecified Referrals Hand Surgery Referral L98.9 - Disorder of the skin and subcutaneous tissue, unspecified Medications: New methotrexate sodium Split dose into 5 tabs in the morning and 5 tabs at night 25 mg (10 x 2.5 mg) PO QWEEK 120 tabs 1RF folic acid 1 mg PO DAILY 90 tabs 1RF Coding Level of Care Code Est Pt Level 5 (72981) Complex EM visit Add On G2211 Diagnoses Seropositive rheumatoid arthritis M05.9 USP 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 Avascular necrosis of left femoral head M87.052 Skin lesion L98.9
[2024-07-03 14:32] VITALS: BP 116/70; PULSE 79; O2SAT 95
== END 2024-07-03 15:12 | disposition home or self-care (01) ==
PROVIDERS: PCP General Practice; Visit Provider Student in an Organized Health Care Education/Training Program
DX: M05.79 Rheumatoid arthritis with rheumatoid factor of multiple sites without organ or systems involvement (principal); Z79.899 Other long term (current) drug therapy; M32.9 Systemic lupus erythematosus, unspecified; M87.052 Idiopathic aseptic necrosis of left femur; L98.9 Disorder of the skin and subcutaneous tissue, unspecified
CPT/HCPCS: 99214

== ENCOUNTER → 2024-07-03 14:09 | Outpatient (BNVA) | payer MEDICAID, SELFPAY | PROVIDERS: PCP General Practice; Visit Provider Student in an Organized Health Care Education/Training Program | DX: M05.9 Rheumatoid arthritis with rheumatoid factor, unspecified (principal); M32.9 Systemic lupus erythematosus, unspecified; M65.4 Radial styloid tenosynovitis [de Quervain]; M87.052 Idiopathic aseptic necrosis of left femur; L98.9 Disorder of the skin and subcutaneous tissue, unspecified; Z79.1 Long term (current) use of non-steroidal anti-inflammatories (NSAID); Z71.85 Encounter for immunization safety counseling | CPT/HCPCS: 99212 ==

== ENCOUNTER 2024-07-06 09:51 | Emergency (ER) | payer MEDICAID, SELFPAY ==
--- NOTE | 2024-07-06 09:52 | ECG_ITS ---
Test Reason : CHEST PAIN Blood Pressure : / mmHG Vent. Rate : 081 BPM Atrial Rate : 081 BPM P-R Int : 174 ms QRS Dur : 104 ms QT Int : 364 ms P-R-T Axes : 068 -55 082 degrees QTc Int : 422 ms Normal sinus rhythm Left anterior fascicular block Left ventricular hypertrophy with repolarization abnormality ( R in aVL , [place] product ) Abnormal ECG When compared with ECG of 12-JUN-2024 10:45, Nonspecific T wave abnormality no longer evident in Inferior leads T wave inversion less evident in Anterolateral leads Referred By: Generic ED Physician Electronically Signed By:Ruddy Larios
[2024-07-06 10:13] VITALS: BP 110/73; PULSE 80; RESP 18; TEMP 36.4; O2SAT 98; BMI 30.9
[2024-07-06 11:13] LABS: Anion Gap 13 (12-20); Blood Urea Nitrogen 14 mg/dL (9-16); Calcium 10.3 mg/dL (8.4-10.2); Carbon Dioxide 24 mmol/L (22-29); Chloride 106 mmol/L (96-108); Creatinine Clr Calc Pharmacy 95.8; Estimated Glomerular Filt Rate > 60; Glucose Random 94 mg/dL (60-115); Sodium 139 mmol/L (135-145)
[2024-07-06 11:22] LABS: Troponin-I High Sensitivity 2.7 ng/L (<3.5-17.0)
[2024-07-06 11:25] LABS: Basophils Percent Auto 0.5 % (0-2); Hematocrit 35.2 % (37.0-47.0); Hemoglobin 11.6 g/dl (12.0-16.0); PLT CLUMP 1; Red Cell Distribution Width 14.2 % (11.0-16.0); SCAN SMEAR FLAG 1
[2024-07-06 11:27] LABS: Eosinophils Absolute Auto 0.1 X10*3/uL (0.0-0.4); Eosinophils Percent Auto 1.5 % (0-4); Imm Gran Abs Auto 0.01 X10*3/uL (0.00-0.03); Imm Gran Pct Auto 0.3 % (0.0-0.4); Lymphocytes Absolute Auto 1.5 X10*3/uL (1.2-4.9); Lymphocytes Percent Auto 38.5 % (20-40); MANUAL DIFF FLAG SCAN; Mean Corpuscular Hemoglobin 29.3 pg (27.0-33.0); Mean Corpuscular Volume 88.9 fL (80.0-98.0); Monocytes Absolute Auto 0.3 X10*3/uL (0.1-1.2); Monocytes Percent Auto 7.3 % (2-11); Neutrophils Absolute Auto 2.1 x10*3/uL (2.0-8.3); Neutrophils Percent Auto 51.9 % (45-73); Red Blood Count 3.96 X10*6/uL (4.20-5.50)
[2024-07-06 11:37] LABS: Mean Platelet Volume 10.7 fL (9.4-12.3); SLIDE REVIEW VERIFIED
== END 2024-07-06 14:51 | disposition left against medical advice (07) ==
PROVIDERS: Emergency Provider Emergency Medicine Emergency Medical Services; PCP General Practice
DX: R07.9 Chest pain, unspecified (principal); Z53.21 Procedure and treatment not carried out due to patient leaving prior to being seen by health care provider
CPT/HCPCS: 36415; 80048; 84484; 85025; 93005; 99281; 99283

== ENCOUNTER → 2024-07-06 09:52 | Outpatient (BNV) | payer MEDICAID, SELFPAY | PROVIDERS: Emergency Provider Emergency Medicine Emergency Medical Services; PCP General Practice; Visit Provider Internal Medicine Cardiovascular Disease | DX: R07.9 Chest pain, unspecified (principal); R94.31 Abnormal electrocardiogram [ECG] [EKG] | CPT/HCPCS: 93010 ==

== ENCOUNTER 2024-07-08 02:51 | Emergency (ER) | payer MEDICAID, SELFPAY ==
--- NOTE | 2024-07-08 | ECG_ITS ---
Test Reason : LEFT SIDED ARM PAIN Blood Pressure : / mmHG Vent. Rate : 070 BPM Atrial Rate : 070 BPM P-R Int : 178 ms QRS Dur : 108 ms QT Int : 386 ms P-R-T Axes : 062 -51 062 degrees QTc Int : 416 ms Normal sinus rhythm Incomplete right bundle branch block Left anterior fascicular block Moderate voltage criteria for LVH, may be normal variant ( R in aVL , [place] product ) Septal infarct , age undetermined T wave abnormality, consider anterior ischemia Abnormal ECG When compared with ECG of 06-JUL-2024 09:47, Incomplete right bundle branch block is now Present Referred By: Generic ED Physician Electronically Signed By:Ruddy Larios
[2024-07-08 02:59] VITALS: BP 130/82; PULSE 96; O2SAT 99
[2024-07-08 03:02] VITALS: BP 124/62; PULSE 72; RESP 20; TEMP 37.3; O2SAT 96; BMI 30.9
[2024-07-08 03:39] LABS: MANUAL DIFF FLAG NO
[2024-07-08 03:40] LABS: Basophils Percent Auto 0.2 % (0-2); Eosinophils Absolute Auto 0.1 X10*3/uL (0.0-0.4); Eosinophils Percent Auto 1.6 % (0-4); Hematocrit 32.9 % (37.0-47.0); Hemoglobin 10.7 g/dl (12.0-16.0); Imm Gran Abs Auto 0.01 X10*3/uL (0.00-0.03); Imm Gran Pct Auto 0.2 % (0.0-0.4); Lymphocytes Absolute Auto 1.2 X10*3/uL (1.2-4.9); Lymphocytes Percent Auto 23.6 % (20-40); Mean Corpuscular HGB Conc 32.5 g/dl (31.0-35.0); Mean Corpuscular Hemoglobin 29.2 pg (27.0-33.0); Mean Corpuscular Volume 89.9 fL (80.0-98.0); Mean Platelet Volume 9.7 fL (9.4-12.3); Monocytes Absolute Auto 0.4 X10*3/uL (0.1-1.2); Monocytes Percent Auto 6.9 % (2-11); Neutrophils Absolute Auto 3.4 x10*3/uL (2.0-8.3); Neutrophils Percent Auto 67.5 % (45-73); Platelet Count 278 X10*3/uL (160-400); Red Blood Count 3.66 X10*6/uL (4.20-5.50); Red Cell Distribution Width 14.1 % (11.0-16.0)
[2024-07-08 04:02] LABS: Troponin-I High Sensitivity 41.6 ng/L (<3.5-17.0)
[2024-07-08 04:03] LABS: Alanine Aminotransferase 12 U/L (0-31); Albumin Level 3.9 g/dL (3.5-5.0); Alkaline Phosphatase 107 U/L (39-117); Anion Gap 15 (12-20); Aspartate Amino Transferase 20 U/L (5-31); Bilirubin Total 0.3 mg/dL (0.0-1.0); Blood Urea Nitrogen 14 mg/dL (9-16); Calcium 9.5 mg/dL (8.4-10.2); Carbon Dioxide 24 mmol/L (22-29); Chloride 104 mmol/L (96-108); Creatinine Clr Calc Pharmacy 107.3; Estimated Glomerular Filt Rate > 60; Glucose Random 109 mg/dL (60-115); HCG Quantitative 16 mIU/mL; Sodium 139 mmol/L (135-145)
[2024-07-08 04:17] LABS: Erythrocyte Sedimentation Rate 96 MM/HR (0-20)
--- NOTE | 2024-07-08 04:17 | ED.GENADULT ---
HPI - General Adult General Chief complaint: General Medical Stated complaint: RT KNEE/ SHOULDER PAIN Time Seen by Provider: 07/08/24 04:17 Source: patient Mode of arrival: ambulatory Limitations: no limitations History of Present Illness ED Provider: HPI narrative: 48-year-old female with past medical history of fibromyalgia, rheumatoid arthritis, SLE, non-Hodgkin's lymphoma 2004, smoking, PAD, DVT and on Eliquis had non-STEMI on 05/27 which showed 80% blockage of LAD stent was placed comes here for chest pain and whole body pain for last 24 hours more so the left shoulder and right knee denies any chest pain no shortness a breath Related Data Home Medications ?Medication ?Instructions ?Recorded ?Confirmed alprazolam 1 mg tablet 1 mg PO BEDTIME PRN Anxiety 12/10/22 06/18/24 albuterol sulfate 90 mcg/actuation 2 puff inhalation Q6H PRN Wheezing 02/20/24 06/18/24 aerosol inhaler benztropine 0.5 mg tablet 0.5 mg PO DAILY 04/23/24 06/18/24 gabapentin 400 mg capsule 400 mg PO TID 04/23/24 06/18/24 oxycodone-acetaminophen 7.5 mg-325 1 tab PO Q8H PRN severe pain 04/23/24 06/18/24 mg tablet trazodone 150 mg tablet 150 mg PO BEDTIME PRN anxiety/sleep 04/23/24 06/18/24 cholecalciferol (vitamin D3) 25 25 mcg PO DAILY 05/27/24 06/18/24 mcg (1,000 unit) capsule (Vitamin D3) cyanocobalamin (vitamin B-12) 1,000 mcg IM QMONTH 05/27/24 06/18/24 1,000 mcg/mL injection solution docusate sodium 100 mg capsule 100 mg PO BID PRN Constipation 05/27/24 06/18/24 (Colace) famotidine 20 mg tablet 20 mg PO BID 05/27/24 06/18/24 polyethylene glycol 3350 17 17 g PO DAILY PRN Constipation 05/27/24 06/18/24 gram/dose oral powder risperidone 1 mg tablet 0.5 mg PO DAILY PRN 05/27/24 06/18/24 anxiety/agitation/paranoia risperidone 1 mg tablet 1 mg PO BEDTIME 05/27/24 06/18/24 apixaban 5 mg tablet (Eliquis) 5 mg PO BID 06/12/24 06/18/24 atorvastatin 80 mg tablet 80 mg PO DAILY 06/12/24 06/18/24 ferrous sulfate 325 mg (65 mg 325 mg PO QAM 06/12/24 06/18/24 iron) tablet lidocaine-prilocaine 2.5 %-2.5 % 1 appl topical Q8-12H PRN moderate 06/12/24 06/18/24 topical cream pain nicotine 7 mg/24 hr daily 1 patch transdermal Q24H 06/12/24 06/18/24 transdermal patch pantoprazole 40 mg tablet,delayed 40 mg PO DAILY@0630 06/12/24 06/18/24 release sertraline 50 mg tablet (Zoloft) 75 mg PO DAILY 06/12/24 06/18/24 umeclidinium 62.5 mcg/actuation 1 inh inhalation DAILY 06/12/24 06/18/24 blister powder for inhalation (Incruse Ellipta) ursodiol 250 mg tablet 250 mg PO BID 06/12/24 06/18/24 vitamin A 3,000 mcg (10,000 unit) 1 cap PO DAILY 06/12/24 06/18/24 capsule Previous Rx's ?Medication ?Instructions ?Recorded lidocaine 5 % topical patch 1 patch topical DAILY PRN pain #30 05/22/24 (Lidoderm) ea acetaminophen 325 mg tablet 650 mg (2 x 325 mg) PO Q6H PRN 05/27/24 Pain, Mild (Pain Scale 1-3), fever or headache #30 tabs clopidogrel 75 mg tablet 75 mg PO DAILY #30 tabs 05/27/24 metoprolol tartrate 25 mg tablet 25 mg PO BID #60 tabs 05/27/24 nitroglycerin 0.4 mg sublingual 0.4 mg sublingual Q5MX3 PRN Chest 05/27/24 tablet (Nitrostat) Pain #30 tabs ascorbic acid (vitamin C) 500 mg 1,000 mg (2 x 500 mg) PO QAM #180 05/28/24 tablet (Vitamin C) tabs cefadroxil 500 mg capsule 500 mg PO BID 7 days #14 caps 06/13/24 doxycycline hyclate 100 mg tablet 100 mg PO BID 7 days #14 tabs 06/13/24 folic acid 1 mg tablet 1 mg PO DAILY #90 tabs 07/03/24 methotrexate sodium 2.5 mg tablet 25 mg (10 x 2.5 mg) PO QWEEK #120 07/03/24 tabs prednisone 20 mg tablet 40 mg (2 x 20 mg) PO DAILY #10 tabs 07/08/24 Allergies Allergy/AdvReac Type Severity Reaction Status Date / Time almond [ALMONDS] Allergy Severe ANAPHYLAXIS Verified 07/08/24 03:03 adhesive tape [ADHESIVE TAPE] Allergy Intermediate RASH Verified 07/08/24 03:03 morphine [MORPHINE] Allergy Intermediate GI UPSET, Verified 07/08/24 03:03 difficulty breathing leflunomide AdvReac Intermediate twitching Verified 07/08/24 03:03 tramadol [TRAMADOL] AdvReac Unknown NAUSEA & Verified 07/08/24 03:03 VOMITING Review of Systems Review of Systems: Yes all other systems are reviewed and are negative PMFSH Past Medical History Medical History Iron deficiency Seropositive rheumatoid arthritis Skin lesion Anxiety Achilles tendinitis Superficial femoral artery occlusion Knee pain, left Depression Hx of peripheral pulmonary artery stenosis PAD (peripheral artery disease) History of chemotherapy Cancer of heart Bone cancer Lung cancer Bleeding hemorrhoid Degeneration, intervertebral disc, lumbar Chronic GERD Degeneration of intervertebral disc at C4-C5 level Osteoarthritis of spine with radiculopathy, lumbar region Fibromyalgia Esophageal dysphagia Vitamin D deficiency Systemic lupus erythematosus Seropositive rheumatoid arthritis Rheumatoid arthritis involving multiple sites Gallstones Stress incontinence in female Nocturia Urgency-frequency syndrome De Quervain's disease (tenosynovitis) Depressive disorder Acute arthritis Hodgkin disease Surgical History History of heart surgery History of surgical removal of skin lesion (~07/13/23) History of angioplasty of vein History of biopsy H/O tubal ligation Hx of endoscopy Hx laparoscopic cholecystectomy Hx of colonoscopy History of esophagogastroduodenoscopy (EGD) History of repair of inguinal hernia History of lymph node dissection of left axilla Family History Family History Maternal Grandmother Ovarian cancer Social History Social History Household Members: Significant Other Housing: Apartment Are you a primary reservoir caretaker to a significant other at home: No Alcohol intake: never Comment: son at bedside Patient Tobacco Use Status: Never used Tobacco Tobacco use type: Cigarette Cigarette Packs Per Day: 1 Cigarettes Per Day: 20.0 Smoked in Last 30 Days: No Use of substances other than those prescribed or required for medical reasons: Yes Substance Use Type: Marijuana Advance Directives: Yes Advance Directives on File: Yes Advance Directives Date on File: 02/24/24 Do you have a plan to hurt others: No Plan Patient : No service: No Current occupational status: disabled 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 Oriented X3. No acute distress. Eyes: PERRLA, No Nystagmus ENT: Pharynx normal. Oral Mucosa moist Neck: Normal inspection. Neck supple. CVS: Normal heart rate and rhythm. Pulses normal. Respiratory: No respiratory distress. Equal air entry bilateral, no wheezing/rales/rhonchi Abdomen: Soft and nontender. Bowel sounds are present, no mass palpable, no CVA tenderness Skin: Skin warm and dry. Normal skin color. Normal skin turgor. Extremities: No lower extremity edema. No calf tenderness diffuse tenderness left shoulder and right knee no signs of infection joint swelling of the right IP joints Neuro: Oriented X 3. No motor deficit. No sensory deficit.No cerebellar signs , cranial nerves II-XII intact Medications Administered Discontinued Medications Generic Name Dose Route Start Last Admin Trade Name Oscarq PRN Reason Stop Dose Admin Dexamethasone 10 mg 07/08/24 04:39 07/08/24 05:10 Dexamethasone 2 Mg Tablet PO 07/08/24 04:40 10 mg ONCE ONE Administration Oxycodone HCl 10 mg 07/08/24 04:39 07/08/24 05:10 Oxycodone Hcl Immed Release 5 Mg Tablet PO 07/08/24 04:40 10 mg ONCE ONE Administration Medical Decision Making Medical Decision Making MDM Narrative: Patient has diffuse joint pains with history of lupus slightly elevated CRP and sed rate will start prednisone patient is feeling better will discharge home Differential Diagnosis Differential Diagnoses: The differential diagnosis associated with the presentation includes Lab Data MDM Lab Attestation statement: I reviewed the patient's lab results. 07/08/24 03:34 07/08/24 03:35 Labs: Lab Results 07/08/24 07/08/24 07/08/24 Range/Units 03:34 03:35 05:40 WBC 5.0 (4.8-10.8) X10*3/uL RBC 3.66 L (4.20-5.50) X10*6/uL Hgb 10.7 L (12.0-16.0) g/dl Hct 32.9 L (37.0-47.0) % MCV 89.9 (80.0-98.0) fL MCH 29.2 (27.0-33.0) pg MCHC 32.5 (31.0-35.0) g/dl RDW 14.1 (11.0-16.0) % Plt Count 278 (160-400) X10*3/uL MPV 9.7 (9.4-12.3) fL Immature Gran % (Auto) 0.2 (0.0-0.4) % Neut % (Auto) 67.5 (45-73) % Lymph % (Auto) 23.6 (20-40) % [place] % (Auto) 6.9 (2-11) % Eos % (Auto) 1.6 (0-4) % Baso % (Auto) 0.2 (0-2) % Lymph # (Auto) 1.2 (1.2-4.9) X10*3/uL [place] # (Auto) 0.4 (0.1-1.2) X10*3/uL Eos # (Auto) 0.1 (0.0-0.4) X10*3/uL Baso # (Auto) 0.0 (0.0-0.2) X10*3/uL Abs Immat Gran (auto) 0.01 (0.00-0.03) X10*3/uL Absolute Neuts (auto) 3.4 (2.0-8.3) x10*3/uL Absolute Nucleated RBC 0.000 (0.0-0.012) X10*3/uL Nucleated RBC % (auto) 0.0 (0.0-0.2) /100WBC ESR 96 H (0-20) MM/HR Sodium 139 (135-145) mmol/L Potassium 4.0 (3.3-5.1) mmol/L Chloride 104 (96-108) mmol/L Carbon Dioxide 24 (22-29) mmol/L Anion Gap 15 (12-20) BUN 14 (9-16) mg/dL Creatinine 0.67 (0.5-1.4) mg/dL Estim Creat Clear Calc 107.3 Estimated GFR > 60 Random Glucose 109 (60-115) mg/dL Calcium 9.5 D (8.4-10.2) mg/dL Total Bilirubin 0.3 (0.0-1.0) mg/dL AST 20 (5-31) U/L ALT 12 (0-31) U/L Alkaline Phosphatase 107 (39-117) U/L Troponin I High Sens 41.6 H D 38.1 H (<3.5-17.0) ng/L C-Reactive Protein 1.94 H (< or = 0.50) mg/dL Total Protein 9.0 H (6.5-8.0) g/dL Albumin 3.9 (3.5-5.0) g/dL Beta HCG, Quant 16 mIU/mL Independent Interpretation I performed an independent interpretation of an: EKG Interpretation: Normal sinus rhythm heart rate 70 beats per minute LVH poor progression of R-waves no acute ST-T changes no acute ischemia Discharge Plan Discharge Clinical Impression: Lupus (systemic lupus erythematosus) Patient Disposition: Home, Self-Care Instructions: Lupus Erythematosus (DC) Additional Instructions: Your pain in jaundice likely from lupus flare-up Take prednisone as prescribed Continue other medications Follow with your PCP Prescriptions: New prednisone 20 mg tablet 40 mg PO DAILY Qty: 10 0RF No Action ascorbic acid (vitamin C) [Vitamin C] 500 mg tablet 1,000 mg PO QAM Qty: 180 2RF lidocaine [Lidoderm] 5 % adhesive patch,medicated 1 patch topical DAILY MDD remove after 12 hours PRN (Reason: pain) Qty: 30 0RF Rx Instructions: leave on most painful area for up to 12 hrs atorvastatin 80 mg tablet 80 mg PO DAILY lidocaine-prilocaine 2.5-2.5 % cream 1 appl topical Q8-12H PRN (Reason: moderate pain) ferrous sulfate 325 mg (65 mg iron) tablet 325 mg PO QAM ursodiol 250 mg tablet 250 mg PO BID sertraline [Zoloft] 50 mg tablet 75 mg PO DAILY Eliquis 5 mg tablet 5 mg PO BID Incruse Ellipta 62.5 mcg/actuation blister with device 1 inh INHALATION DAILY vitamin A 3,000 mcg (10,000 unit) capsule 1 cap PO DAILY pantoprazole 40 mg tablet,delayed release (DR/EC) 40 mg PO DAILY@0630 nicotine 7 mg/24 hr Patch 24 Hour 1 patch TRANSDERMAL Q24H cefadroxil 500 mg capsule 500 mg PO BID 7 Days Qty: 14 0RF doxycycline hyclate 100 mg tablet 100 mg PO BID 7 Days Qty: 14 0RF albuterol sulfate 90 mcg/actuation Hfa Aerosol Inhaler 2 puff INHALATION Q6H PRN (Reason: Wheezing) famotidine 20 mg tablet 20 mg PO BID polyethylene glycol 3350 17 gram/dose powder 17 g PO DAILY PRN (Reason: Constipation) risperidone 1 mg tablet 1 mg PO BEDTIME risperidone 1 mg tablet 0.5 mg PO DAILY PRN (Reason: anxiety/agitation/paranoia) cholecalciferol (vitamin D3) [Vitamin D3] 25 mcg (1,000 unit) capsule 25 mcg PO DAILY docusate sodium [Colace] 100 mg capsule 100 mg PO BID PRN (Reason: Constipation) cyanocobalamin (vitamin B-12) 1,000 mcg/mL Solution 1,000 mcg IM QMONTH acetaminophen 325 mg Tablet 650 mg PO Q6H PRN (Reason: Pain, Mild (Pain Scale 1-3), fever or headache) Qty: 30 0RF clopidogrel 75 mg Tablet 75 mg PO DAILY Qty: 30 0RF nitroglycerin [Nitrostat] 0.4 mg Tablet, Sublingual 0.4 mg sublingual Q5MX3 PRN (Reason: Chest Pain) Qty: 30 0RF metoprolol tartrate 25 mg Tablet 25 mg PO BID Qty: 60 0RF Protocol: Hold for SBP/HR < HOLD for SBP < : 90 HOLD for HR < : 60 alprazolam 1 mg tablet 1 mg PO BEDTIME PRN (Reason: Anxiety) trazodone 150 mg tablet 150 mg PO BEDTIME PRN (Reason: anxiety/sleep) benztropine 0.5 mg tablet 0.5 mg PO DAILY oxycodone-acetaminophen 7.5-325 mg tablet 1 tab PO Q8H PRN (Reason: severe pain) gabapentin 400 mg capsule 400 mg PO TID methotrexate sodium 2.5 mg tablet 25 mg PO QWEEK Qty: 120 1RF Rx Instructions: Split dose into 5 tabs in the morning and 5 tabs at night folic acid 1 mg tablet 1 mg PO DAILY Qty: 90 1RF Interventions: ED Discharge Assessment Last Done: 07/08/24 07:12 Discharge Date/Time: 07/08/24 07:12 Print Language: Czech
[2024-07-08 04:33] LABS: C Reactive Protein 1.94 mg/dL (< or = 0.50)
--- NOTE | 2024-07-08 04:51 | PC.NURSE ---
pt able to stand up to bedside commode
[2024-07-08] MEDS: dexAMETHasone 2 MG TABLET 10 MG PO (05:10)
[2024-07-08] MEDS: oxyCODONE HCl Immed Release 5 MG TABLET 10 MG PO (05:10)
[2024-07-08 05:43] VITALS: BP 137/66; PULSE 89; RESP 18; TEMP 36.7; O2SAT 97
[2024-07-08 06:10] LABS: Troponin-I High Sensitivity 38.1 ng/L (<3.5-17.0)
[2024-07-08 07:12] VITALS: BP 137/66; PULSE 89; RESP 18; TEMP 36.7; O2SAT 97
== END 2024-07-08 07:12 | disposition home or self-care (01) ==
PROVIDERS: Emergency Provider Internal Medicine; PCP General Practice
DX: M32.9 Systemic lupus erythematosus, unspecified (principal); R07.89 Other chest pain; M79.10 Myalgia, unspecified site; M79.602 Pain in left arm; F17.210 Nicotine dependence, cigarettes, uncomplicated; Z86.718 Personal history of other venous thrombosis and embolism; Z79.01 Long term (current) use of anticoagulants; Z79.899 Other long term (current) drug therapy
CPT/HCPCS: 36415; 80053; 84484; 84702; 85025; 85652; 86140; 93005; 99284; J8540

== ENCOUNTER → 2024-07-08 03:21 | Outpatient (BNV) | payer MEDICAID, SELFPAY | PROVIDERS: Emergency Provider Internal Medicine; PCP General Practice; Visit Provider Internal Medicine Cardiovascular Disease | DX: I45.10 Unspecified right bundle-branch block (principal) | CPT/HCPCS: 93010 ==

== ENCOUNTER 2024-07-12 02:26 | Emergency (ER) | payer MEDICAID, SELFPAY ==
--- NOTE | ~2024-07-12 | XR_ITS ---
EXAMINATION: XR HIP, RIGHT CLINICAL INFORMATION: pain COMPARISON: CT abdomen pelvis 02/20/2024. TECHNIQUE: AP pelvis, AP and lateral radiograph of the right hip FINDINGS: Pelvis appears intact. Sacrum appears intact. No sacral iliac joint diastases. The visualized femurs are intact. No arthropathic changes of the hips noted. Partial visualization is made of vascular stents within the mid segment of the right thigh coursing beyond the image [id number]. Surgical clip is projected over the left lower abdominal quadrant. XR/XR hip RT min 2V IMPRESSION: *No acute abnormalities. *Partially visualized endovascular stent within the right thigh. *Normal appearance of the right hip. No arthropathic changes. Electronically signed by: Monty Alvarez MD 07/12/2024 04:22 AM [facility]
[2024-07-12 02:33] VITALS: BP 142/90; PULSE 71; O2SAT 98
[2024-07-12 02:35] VITALS: BP 109/53; PULSE 59; RESP 18; TEMP 36.8; O2SAT 97; BMI 32.7
[2024-07-12] MEDS: oxyCODONE HCl Immed Release 15 MG TABLET PO (03:04)
--- NOTE | 2024-07-12 03:12 | ED_ITS ---
HPI - Extremity Problem General Chief complaint: Extremity Problem Stated complaint: hxlupus 05/10 R Hip pain,L wrist, CP, SOB +thinner Time Seen by Provider: 07/12/24 02:36 Source: patient and old records reviewed Mode of arrival: ambulatory Limitations: no limitations History of Present Illness ED Provider: AMA WESLEY Narrative: 48 yo female with NSTEMI, RA on methotrexate and orencia infusions, DVT on eliquis, SLE, HARINI who notes L hand and R hip pain mild swelling, no fevers, no rash no trauma she notes she is on prednisone daily and is taking all of her medications but she has been having pain on and off for weeks. She does see rheumatology. She notes she gets these flares. MD Complaint: joint pain Onset (ago): week(s) Pain Consistency: intermittent Location: left, right, upper extremity and lower extremity Quality: crushing Radiation: none Relieving factors: nothing Exacerbating factors: range of motion, weight bearing and palpation Associated symptoms: denies other symptoms Context: other Related Data Home Medications ?Medication ?Instructions ?Recorded ?Confirmed alprazolam 1 mg tablet 1 mg PO BEDTIME PRN Anxiety 12/10/22 06/18/24 albuterol sulfate 90 mcg/actuation 2 puff inhalation Q6H PRN Wheezing 02/20/24 06/18/24 aerosol inhaler benztropine 0.5 mg tablet 0.5 mg PO DAILY 04/23/24 06/18/24 gabapentin 400 mg capsule 400 mg PO TID 04/23/24 06/18/24 oxycodone-acetaminophen 7.5 mg-325 1 tab PO Q8H PRN severe pain 04/23/24 06/18/24 mg tablet trazodone 150 mg tablet 150 mg PO BEDTIME PRN anxiety/sleep 04/23/24 06/18/24 cholecalciferol (vitamin D3) 25 25 mcg PO DAILY 05/27/24 06/18/24 mcg (1,000 unit) capsule (Vitamin D3) cyanocobalamin (vitamin B-12) 1,000 mcg IM QMONTH 05/27/24 06/18/24 1,000 mcg/mL injection solution docusate sodium 100 mg capsule 100 mg PO BID PRN Constipation 05/27/24 06/18/24 (Colace) famotidine 20 mg tablet 20 mg PO BID 05/27/24 06/18/24 polyethylene glycol 3350 17 17 g PO DAILY PRN Constipation 05/27/24 06/18/24 gram/dose oral powder risperidone 1 mg tablet 0.5 mg PO DAILY PRN 05/27/24 06/18/24 anxiety/agitation/paranoia risperidone 1 mg tablet 1 mg PO BEDTIME 05/27/24 06/18/24 apixaban 5 mg tablet (Eliquis) 5 mg PO BID 06/12/24 06/18/24 atorvastatin 80 mg tablet 80 mg PO DAILY 06/12/24 06/18/24 ferrous sulfate 325 mg (65 mg 325 mg PO QAM 06/12/24 06/18/24 iron) tablet lidocaine-prilocaine 2.5 %-2.5 % 1 appl topical Q8-12H PRN moderate 06/12/24 topical cream pain nicotine 7 mg/24 hr daily 1 patch transdermal Q24H 06/12/24 06/18/24 transdermal patch pantoprazole 40 mg tablet,delayed 40 mg PO DAILY@0630 06/12/24 06/18/24 release sertraline 50 mg tablet (Zoloft) 75 mg PO DAILY 06/12/24 06/18/24 umeclidinium 62.5 mcg/actuation 1 inh inhalation DAILY 06/12/24 06/18/24 blister powder for inhalation (Incruse Ellipta) ursodiol 250 mg tablet 250 mg PO BID 06/12/24 06/18/24 vitamin A 3,000 mcg (10,000 unit) 1 cap PO DAILY 06/12/24 06/18/24 capsule Previous Rx's ?Medication ?Instructions ?Recorded lidocaine 5 % topical patch 1 patch topical DAILY PRN pain #30 05/22/24 (Lidoderm) ea acetaminophen 325 mg tablet 650 mg (2 x 325 mg) PO Q6H PRN 05/27/24 Pain, Mild (Pain Scale 1-3), fever or headache #30 tabs clopidogrel 75 mg tablet 75 mg PO DAILY #30 tabs 05/27/24 metoprolol tartrate 25 mg tablet 25 mg PO BID #60 tabs 05/27/24 nitroglycerin 0.4 mg sublingual 0.4 mg sublingual Q5MX3 PRN Chest 05/27/24 tablet (Nitrostat) Pain #30 tabs ascorbic acid (vitamin C) 500 mg 1,000 mg (2 x 500 mg) PO QAM #180 05/28/24 tablet (Vitamin C) tabs cefadroxil 500 mg capsule 500 mg PO BID 7 days #14 caps 06/13/24 doxycycline hyclate 100 mg tablet 100 mg PO BID 7 days #14 tabs 06/13/24 folic acid 1 mg tablet 1 mg PO DAILY #90 tabs 07/03/24 methotrexate sodium 2.5 mg tablet 25 mg (10 x 2.5 mg) PO QWEEK #120 07/03/24 tabs prednisone 20 mg tablet 40 mg (2 x 20 mg) PO DAILY #10 tabs 07/08/24 Allergies Allergy/AdvReac Type Severity Reaction Status Date / Time almond [ALMONDS] Allergy Severe ANAPHYLAXIS Verified 07/12/24 02:38 adhesive tape [ADHESIVE TAPE] Allergy Intermediate RASH Verified 07/12/24 02:38 morphine [MORPHINE] Allergy Intermediate GI UPSET, Verified 07/12/24 02:38 difficulty breathing leflunomide AdvReac Intermediate twitching Verified 07/12/24 02:38 tramadol [TRAMADOL] AdvReac Unknown NAUSEA & Verified 07/12/24 02:38 VOMITING Review of Systems Review of Systems: Constitutional : No Fever, No Chills ENT/Mouth : No Ear Pain, No Hoarseness, No sore throat Eyes: No Eye Pain, No Swelling, No Redness, No Foreign Body Cardiovascular : No Chest Pain, No SOB Respiratory : No Cough, No Dyspnea Gastrointestinal : No Nausea, No Vomiting, No Diarrhea, No abdominal Pain Genitourinary : No Dysuria, No Hematuria Musculoskeletal : positive joint pain, No Myalgias, pos Joint Swelling Skin : No Skin lacerations, No rash Neuro : No Weakness, No Numbness, No Loss of Consciousness, No Dizziness, No Headache All other systems reviewed and are negative PMFSH Past Medical History Attestation statement: The following information was validated with the patient. Source: old records reviewed Medical History Iron deficiency Seropositive rheumatoid arthritis Skin lesion Anxiety Achilles tendinitis Superficial femoral artery occlusion Knee pain, left Depression Hx of peripheral pulmonary artery stenosis PAD (peripheral artery disease) History of chemotherapy Cancer of heart Bone cancer Lung cancer Bleeding hemorrhoid Degeneration, intervertebral disc, lumbar Chronic GERD Degeneration of intervertebral disc at C4-C5 level Osteoarthritis of spine with radiculopathy, lumbar region Fibromyalgia Esophageal dysphagia Vitamin D deficiency Systemic lupus erythematosus Seropositive rheumatoid arthritis Rheumatoid arthritis involving multiple sites Gallstones Stress incontinence in female Nocturia Urgency-frequency syndrome De Quervain's disease (tenosynovitis) Depressive disorder Acute arthritis Hodgkin disease Surgical History History of heart surgery History of surgical removal of skin lesion (~07/13/23) History of angioplasty of vein History of biopsy H/O tubal ligation Hx of endoscopy Hx laparoscopic cholecystectomy Hx of colonoscopy History of esophagogastroduodenoscopy (EGD) History of repair of inguinal hernia History of lymph node dissection of left axilla Family History Family History Maternal Grandmother Ovarian cancer Social History Social History Household Members: Significant Other Housing: Apartment Are you a primary career technical education instructor to a significant other at home: No Alcohol intake: never Comment: son at bedside Patient Tobacco Use Status: Never used Tobacco Tobacco use type: Cigarette Cigarette Packs Per Day: 1 Cigarettes Per Day: 20.0 Smoked in Last 30 Days: No Use of substances other than those prescribed or required for medical reasons: No Substance Use Type: Marijuana Advance Directives: Yes Advance Directives on File: Yes Advance Directives Date on File: 02/24/24 service: No Current occupational status: disabled 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 Oriented X3. No acute distress. tearful Eyes: Pupils equal, round and reactive to light. ENT: Pharynx normal. Neck: Normal inspection. Neck supple. CVS: Normal heart rate and rhythm. Pulses normal. Respiratory: No respiratory distress. Breath sounds normal. Abdomen: Soft and nontender. Skin: Skin warm and dry. Normal skin color. Normal skin turgor. Extremities: No lower extremity edema. R hip appears normal L hand mild swelling non red on the dorsum she has pulses Neuro: Oriented X 3. No motor deficit. No sensory deficit. Course Course Course Narrative: crying asking for steroid given IM solumedrol at this time she is much more calm Reevaluation(s) Reevaluation #1: patient seen walking in her room by me no issues Reevaluation #2: on discharge the patient is very upset that she still has swelling we did explain this is chronic and that swelling and her arthralgias which she has had on and off and just saw her rheum on 07/03/24 for similar complaints. she was alva re that we could not likely change her arthralgias and RA flare but provide supportive medications. she still left very unhappy. Medications Administered Discontinued Medications Generic Name Dose Route Start Last Admin Trade Name Freq PRN Reason Stop Dose Admin Lorazepam 1 mg 07/12/24 03:28 07/12/24 03:49 Lorazepam 1 Mg Tablet PO 07/12/24 03:29 1 mg ONCE ONE Administration Methylprednisolone Sodium Succinate 60 mg 07/12/24 03:52 07/12/24 04:25 Methylprednisolone Sod Succ 125 Mg/2 Ml Vial IM 07/12/24 03:53 60 mg ONCE ONE Administration Oxycodone HCl 15 mg 07/12/24 02:58 07/12/24 03:04 Oxycodone Hcl Immed Release 15 Mg Tablet PO 07/12/24 02:59 15 mg ONCE ONE Administration Medical Decision Making Medical Decision Making [facility] Narrative: 48 yo female with NSTEMI, RA on methotrexate and orencia infusions, DVT on eliquis, SLE, HARINI here with recurrent joint pain no new trauma no signs of infection or cellulitis - patient reports no fevers, compliant with medications at this time will obtain xray of R hip and treat with pain medications. She has been seen here for the same in past and follows closely with Rheum just seen on 07/03 with med changes for similar complaints Differential Diagnosis Differential Diagnoses: The differential diagnosis associated with the presentation includes arthralgia, AVN, flare Admission/Observation Consideration of admission/observation: Escalation of care including admission/observation considered more calm after ativan she can follow up with her chemical process engineer today Independent Interpretation I performed an independent interpretation of an: Plain X-Ray (no acute change) Radiology Impression Discussion of test interpretation with radiology: I have reviewed the radiologist's reading. External Record Review External record reviewed: Outpatient record Discharge Plan Discharge Clinical Impression: Polyarthralgia Patient Disposition: Home, Self-Care Instructions: Arthralgia (ED) Additional Instructions: please call your chemical process engineer today return for any worsening symptoms or concerns given a shot of steroids xray no acute changes Prescriptions: No Action ascorbic acid (vitamin C) [Vitamin C] 500 mg tablet 1,000 mg PO QAM Qty: 180 2RF lidocaine [Lidoderm] 5 % adhesive patch,medicated 1 patch topical DAILY MDD remove after 12 hours PRN (Reason: pain) Qty: 30 0RF Rx Instructions: leave on most painful area for up to 12 hrs atorvastatin 80 mg tablet 80 mg PO DAILY lidocaine-prilocaine 2.5-2.5 % cream 1 appl topical Q8-12H PRN (Reason: moderate pain) ferrous sulfate 325 mg (65 mg iron) tablet 325 mg PO QAM ursodiol 250 mg tablet 250 mg PO BID sertraline [Zoloft] 50 mg tablet 75 mg PO DAILY Eliquis 5 mg tablet 5 mg PO BID Incruse Ellipta 62.5 mcg/actuation blister with device 1 inh INHALATION DAILY vitamin A 3,000 mcg (10,000 unit) capsule 1 cap PO DAILY pantoprazole 40 mg tablet,delayed release (DR/EC) 40 mg PO DAILY@0630 nicotine 7 mg/24 hr Patch 24 Hour 1 patch TRANSDERMAL Q24H cefadroxil 500 mg capsule 500 mg PO BID 7 Days Qty: 14 0RF doxycycline hyclate 100 mg tablet 100 mg PO BID 7 Days Qty: 14 0RF prednisone 20 mg tablet 40 mg PO DAILY Qty: 10 0RF albuterol sulfate 90 mcg/actuation Hfa Aerosol Inhaler 2 puff INHALATION Q6H PRN (Reason: Wheezing) famotidine 20 mg tablet 20 mg PO BID polyethylene glycol 3350 17 gram/dose powder 17 g PO DAILY PRN (Reason: Constipation) risperidone 1 mg tablet 1 mg PO BEDTIME risperidone 1 mg tablet 0.5 mg PO DAILY PRN (Reason: anxiety/agitation/paranoia) cholecalciferol (vitamin D3) [Vitamin D3] 25 mcg (1,000 unit) capsule 25 mcg PO DAILY docusate sodium [Colace] 100 mg capsule 100 mg PO BID PRN (Reason: Constipation) cyanocobalamin (vitamin B-12) 1,000 mcg/mL Solution 1,000 mcg IM QMONTH acetaminophen 325 mg Tablet 650 mg PO Q6H PRN (Reason: Pain, Mild (Pain Scale 1-3), fever or headache) Qty: 30 0RF clopidogrel 75 mg Tablet 75 mg PO DAILY Qty: 30 0RF nitroglycerin [Nitrostat] 0.4 mg Tablet, Sublingual 0.4 mg sublingual Q5MX3 PRN (Reason: Chest Pain) Qty: 30 0RF metoprolol tartrate 25 mg Tablet 25 mg PO BID Qty: 60 0RF Protocol: Hold for SBP/HR < HOLD for SBP < : 90 HOLD for HR < : 60 alprazolam 1 mg tablet 1 mg PO BEDTIME PRN (Reason: Anxiety) trazodone 150 mg tablet 150 mg PO BEDTIME PRN (Reason: anxiety/sleep) benztropine 0.5 mg tablet 0.5 mg PO DAILY oxycodone-acetaminophen 7.5-325 mg tablet 1 tab PO Q8H PRN (Reason: severe pain) gabapentin 400 mg capsule 400 mg PO TID methotrexate sodium 2.5 mg tablet 25 mg PO QWEEK Qty: 120 1RF Rx Instructions: Split dose into 5 tabs in the morning and 5 tabs at night folic acid 1 mg tablet 1 mg PO DAILY Qty: 90 1RF Print Language: Vietnamese
[2024-07-12] MEDS: LORazepam 1 MG TABLET PO (03:49)
[2024-07-12] MEDS: methylPREDNISolone Sod Succ 125 MG/2 ML VIAL 60 MG IM (04:25)
[2024-07-12 06:15] VITALS: BP 119/57; PULSE 69; RESP 18; TEMP 36.8; O2SAT 98
[2024-07-12 06:55] VITALS: BP 119/57; PULSE 69; RESP 18; TEMP 36.8; O2SAT 98
== END 2024-07-12 06:56 | disposition home or self-care (01) ==
PROVIDERS: Emergency Provider Emergency Medicine
DX: M25.50 Pain in unspecified joint (principal); M05.9 Rheumatoid arthritis with rheumatoid factor, unspecified; M32.9 Systemic lupus erythematosus, unspecified; C81.90 Hodgkin lymphoma, unspecified, unspecified site; Z92.21 Personal history of antineoplastic chemotherapy; Z79.899 Other long term (current) drug therapy
CPT/HCPCS: 73502; 96372; 99284; J2919

== ENCOUNTER 2024-07-12 10:25 | Outpatient (REF) | payer MEDICAID, SELFPAY | END 2024-07-12 10:26 | disposition home or self-care (01) | LOC: HO.HOSX 10:25 | PROVIDERS: Visit Provider Orthopaedic Surgery | DX: Z13.89 Encounter for screening for other disorder (principal) ==

== ENCOUNTER 2024-07-27 00:27 | Emergency (ER) | payer MEDICAID, SELFPAY ==
--- NOTE | 2024-07-27 | ECG_ITS ---
Test Reason : CHEST PAIN Blood Pressure : / mmHG Vent. Rate : 060 BPM Atrial Rate : 060 BPM P-R Int : 174 ms QRS Dur : 118 ms QT Int : 414 ms P-R-T Axes : 066 -50 049 degrees QTc Int : 414 ms Normal sinus rhythm with sinus arrhythmia Left anterior fascicular block Left ventricular hypertrophy with QRS widening ( R in aVL , Slaton product ) Abnormal ECG When compared with ECG of 08-JUL-2024 03:21, Incomplete right bundle branch block is no longer Present Criteria for Septal infarct are no longer Present Referred By: Generic ED Physician Electronically Signed By:OLGA KINGSTON MD
--- NOTE | ~2024-07-27 | XR_ITS ---
EXAMINATION: XR CLAVICLE, LEFT CLINICAL INFORMATION: pain COMPARISON: None available. TECHNIQUE: Straight AP and cephalad angulated AP views of the left clavicle. FINDINGS: The clavicle is intact. The bones and soft tissues are normal. No fracture. Acromioclavicular joint alignment is anatomic. XR/XR clavicle LT IMPRESSION: Normal left clavicle. Electronically signed by: Arian Mondragon MD 07/27/2024 09:05 AM [facility]
--- NOTE | ~2024-07-27 | XR_ITS ---
EXAMINATION: XR SHOULDER, LEFT CLINICAL INFORMATION: pain COMPARISON: None available. TECHNIQUE: AP external rotation, Grashey, scapular Y, and axillary views of the left shoulder. FINDINGS: No fracture, dislocation, or suspicious bone lesion. There is normal alignment. Glenohumeral joint space and AC joint appear normal. Neutral lateral acromion without significant spurring. No evidence of outlet stenosis. Subacromial space is preserved. Tiny amount of calcification of the supraspinatous tendon abutting the footplate attachment. Soft tissues otherwise normal. Remainder of the bony structures and soft tissues appear normal. XR/XR shoulder LT min 2V IMPRESSION: 1. No acute findings, or significant arthritic changes left shoulder. 2. Mild calcific tendinopathy of the infraspinatus tendon. Electronically signed by: Arian Mondragon MD 07/27/2024 09:09 AM [facility]
--- NOTE | ~2024-07-27 | XR_ITS ---
EXAMINATION: XR CHEST CLINICAL INFORMATION: pain COMPARISON: Numerous priors, most recently 06/08/2024 and 05/26/2024. TECHNIQUE: 2 views of the chest were obtained. FINDINGS: The cardiac, hilar, and mediastinal contours are normal. The lungs are clear bilaterally. There is no pneumothorax or pleural effusion. There is no focal osseous or soft tissue abnormality. Surgical clips noted right low axilla. XR/XR chest 2V IMPRESSION: Normal chest. Electronically signed by: Arian Mondragon MD 07/27/2024 09:06 AM EST
[2024-07-27 00:31] VITALS: BP 132/68; PULSE 75; O2SAT 98
[2024-07-27 00:43] VITALS: BP 129/86; PULSE 77; RESP 24; TEMP 36.6; O2SAT 99; BMI 31.6
[2024-07-27 01:22] LABS: Basophils Percent Auto 0.2 % (0-2); Eosinophils Absolute Auto 0.1 X10*3/uL (0.0-0.4); Eosinophils Percent Auto 1.6 % (0-4); Hematocrit 31.7 % (37.0-47.0); Hemoglobin 10.2 g/dl (12.0-16.0); Imm Gran Abs Auto 0.01 X10*3/uL (0.00-0.03); Imm Gran Pct Auto 0.2 % (0.0-0.4); Lymphocytes Absolute Auto 1.5 X10*3/uL (1.2-4.9); Lymphocytes Percent Auto 29.7 % (20-40); MANUAL DIFF FLAG NO; Mean Corpuscular HGB Conc 32.2 g/dl (31.0-35.0); Mean Corpuscular Hemoglobin 28.2 pg (27.0-33.0); Mean Corpuscular Volume 87.6 fL (80.0-98.0); Mean Platelet Volume 10.1 fL (9.4-12.3); Monocytes Absolute Auto 0.4 X10*3/uL (0.1-1.2); Monocytes Percent Auto 7.1 % (2-11); Neutrophils Percent Auto 61.2 % (45-73); Platelet Count 300 X10*3/uL (160-400); Red Blood Count 3.62 X10*6/uL (4.20-5.50); White Blood Count 4.9 X10*3/uL (4.8-10.8)
[2024-07-27 01:44] LABS: Alanine Aminotransferase 32 U/L (0-31); Albumin Level 3.7 g/dL (3.5-5.0); Anion Gap 15 (12-20); Aspartate Amino Transferase 48 U/L (5-31); Bilirubin Total 0.5 mg/dL (0.0-1.0); Blood Urea Nitrogen 11 mg/dL (9-16); Calcium 9.2 mg/dL (8.4-10.2); Carbon Dioxide 23 mmol/L (22-29); Chloride 105 mmol/L (96-108); Creatinine Clr Calc Pharmacy 98.5; Estimated Glomerular Filt Rate > 60; Glucose Random 107 mg/dL (60-115); Potassium 3.1 mmol/L (3.3-5.1); Sodium 140 mmol/L (135-145); Total Protein 8.5 g/dL (6.5-8.0); Troponin-I High Sensitivity < 2.7 ng/L (<3.5-17.0)
[2024-07-27 02:52] LABS: Alkaline Phosphatase 151 U/L (39-117)
[2024-07-27 04:16] LABS: Troponin-I High Sensitivity < 2.7 ng/L (<3.5-17.0)
[2024-07-27 04:31] VITALS: BP 117/75; PULSE 89; RESP 16; TEMP 36.6; O2SAT 99
--- NOTE | 2024-07-27 06:00 | PC.NURSE ---
Pt is upset as she states has been waiting for a provider for too long. Pt walking/pacing the hallway talking to other pts, in loud voice, how the wait time is too long. Pt told to return to the bedside. Pt refused stating she did not have to wait inside the room. Security called to escort pt to the room. Pt recording with her phone and asked not to record the staff. Required multiple attempts to de escalate and return to bedside. Charge nurse aware. Pt told provider will see her as soon as possible. Pt currently in her room calm and cooperative. No apparent distress noted.
--- NOTE | 2024-07-27 06:46 | ED_ITS ---
HPI - Extremity Problem General Chief complaint: Extremity Injury, Upper Stated complaint: sudden left shoulder pain & weakness Time Seen by Provider: 07/27/24 06:44 Source: patient and RN notes reviewed Mode of arrival: ambulatory Limitations: no limitations History of Present Illness ED Provider: Jana Mcdaniel PA-C HPI Narrative: This is a 49-year-old female, with a history of NSTEMI, rheumatoid arthritis on methotrexate and orencia infusions, DVT on Eliquis, SLE, HARINI, who presents to the ER with complaints of L shoulder pain x 3 days. Reports pain worsens with movement. No trauma or injury to her shoulder. NO CP or SOB. No injury or trauma. Took oxycodone which provided her with some relief. Reports that she has not been sleeping due to her loud neighbors and believes that this is making her pain worse. She denies any recent fevers, chills, SOB, chest pain, abdominal pain, nausea, vomiting or diarrhea. No other complaints or concerns at this time. MD Complaint: extremity pain Quality: aching Radiation: none Relieving factors: rest Exacerbating factors: range of motion and palpation Associated symptoms: denies other symptoms Context: history of DVT Related Data Home Medications ?Medication ?Instructions ?Recorded ?Confirmed alprazolam 1 mg tablet 1 mg PO BEDTIME PRN Anxiety 12/10/22 06/18/24 albuterol sulfate 90 mcg/actuation 2 puff inhalation Q6H PRN Wheezing 02/20/24 06/18/24 aerosol inhaler benztropine 0.5 mg tablet 0.5 mg PO DAILY 04/23/24 06/18/24 gabapentin 400 mg capsule 400 mg PO TID 04/23/24 06/18/24 oxycodone-acetaminophen 7.5 mg-325 1 tab PO Q8H PRN severe pain 04/23/24 06/18/24 mg tablet trazodone 150 mg tablet 150 mg PO BEDTIME PRN anxiety/sleep 04/23/24 06/18/24 cholecalciferol (vitamin D3) 25 25 mcg PO DAILY 05/27/24 06/18/24 mcg (1,000 unit) capsule (Vitamin D3) cyanocobalamin (vitamin B-12) 1,000 mcg IM QMONTH 05/27/24 06/18/24 1,000 mcg/mL injection solution docusate sodium 100 mg capsule 100 mg PO BID PRN Constipation 05/27/24 06/18/24 (Colace) famotidine 20 mg tablet 20 mg PO BID 05/27/24 06/18/24 polyethylene glycol 3350 17 17 g PO DAILY PRN Constipation 05/27/24 06/18/24 gram/dose oral powder risperidone 1 mg tablet 0.5 mg PO DAILY PRN 05/27/24 06/18/24 anxiety/agitation/paranoia risperidone 1 mg tablet 1 mg PO BEDTIME 05/27/24 06/18/24 apixaban 5 mg tablet (Eliquis) 5 mg PO BID 06/12/24 06/18/24 atorvastatin 80 mg tablet 80 mg PO DAILY 06/12/24 06/18/24 ferrous sulfate 325 mg (65 mg 325 mg PO QAM 06/12/24 06/18/24 iron) tablet lidocaine-prilocaine 2.5 %-2.5 % 1 appl topical Q8-12H PRN moderate 06/12/24 06/18/24 topical cream pain nicotine 7 mg/24 hr daily 1 patch transdermal Q24H 06/12/24 06/18/24 transdermal patch sertraline 50 mg tablet (Zoloft) 75 mg PO DAILY 06/12/24 06/18/24 umeclidinium 62.5 mcg/actuation 1 inh inhalation DAILY 06/12/24 06/18/24 blister powder for inhalation (Incruse Ellipta) ursodiol 250 mg tablet 250 mg PO BID 06/12/24 06/18/24 vitamin A 3,000 mcg (10,000 unit) 1 cap PO DAILY 06/12/24 06/18/24 capsule Previous Rx's ?Medication ?Instructions ?Recorded lidocaine 5 % topical patch 1 patch topical DAILY PRN pain #30 05/22/24 (Lidoderm) ea acetaminophen 325 mg tablet 650 mg (2 x 325 mg) PO Q6H PRN 05/27/24 Pain, Mild (Pain Scale 1-3), fever or headache #30 tabs clopidogrel 75 mg tablet 75 mg PO DAILY #30 tabs 05/27/24 metoprolol tartrate 25 mg tablet 25 mg PO BID #60 tabs 05/27/24 nitroglycerin 0.4 mg sublingual 0.4 mg sublingual Q5MX3 PRN Chest 05/27/24 tablet (Nitrostat) Pain #30 tabs ascorbic acid (vitamin C) 500 mg 1,000 mg (2 x 500 mg) PO QAM #180 05/28/24 tablet (Vitamin C) tabs cefadroxil 500 mg capsule 500 mg PO BID 7 days #14 caps 06/13/24 doxycycline hyclate 100 mg tablet 100 mg PO BID 7 days #14 tabs 06/13/24 folic acid 1 mg tablet 1 mg PO DAILY #90 tabs 07/03/24 methotrexate sodium 2.5 mg tablet 25 mg (10 x 2.5 mg) PO QWEEK #120 07/03/24 tabs prednisone 20 mg tablet 40 mg (2 x 20 mg) PO DAILY #10 tabs 07/08/24 acetaminophen 500 mg tablet 500 mg PO QID PRN pain #30 tabs 07/27/24 (Tylenol Extra Strength) cyclobenzaprine 5 mg tablet 5 mg PO TID PRN muscle spasm #10 07/27/24 tabs lidocaine 5 % topical patch 1 patch topical DAILY #30 ea 07/27/24 (Lidoderm) pantoprazole 40 mg tablet,delayed 40 mg PO DAILY #90 tabs 07/30/24 release Allergies Allergy/AdvReac Type Severity Reaction Status Date / Time almond [ALMONDS] Allergy Severe ANAPHYLAXIS Verified 07/27/24 00:43 adhesive tape [ADHESIVE TAPE] Allergy Intermediate RASH Verified 07/27/24 00:43 morphine [MORPHINE] Allergy Intermediate GI UPSET, Verified 07/27/24 00:43 difficulty breathing leflunomide AdvReac Intermediate twitching Verified 07/27/24 00:43 tramadol [TRAMADOL] AdvReac Unknown NAUSEA & Verified 07/27/24 00:43 VOMITING Review of Systems 2 Review of Systems: Yes all other systems are reviewed and are negative Constitutional: Constitutional: Reports as per [facility] Past Medical History Medical History Iron deficiency Seropositive rheumatoid arthritis Skin lesion Anxiety Achilles tendinitis Superficial femoral artery occlusion Knee pain, left Depression Hx of peripheral pulmonary artery stenosis PAD (peripheral artery disease) History of chemotherapy Cancer of heart Bone cancer Lung cancer Bleeding hemorrhoid Degeneration, intervertebral disc, lumbar Chronic GERD Degeneration of intervertebral disc at C4-C5 level Osteoarthritis of spine with radiculopathy, lumbar region Fibromyalgia Esophageal dysphagia Vitamin D deficiency Systemic lupus erythematosus Seropositive rheumatoid arthritis Rheumatoid arthritis involving multiple sites Gallstones Stress incontinence in female Nocturia Urgency-frequency syndrome De Quervain's disease (tenosynovitis) Depressive disorder Acute arthritis Hodgkin disease Surgical History History of heart surgery History of surgical removal of skin lesion (~07/13/23) History of angioplasty of vein History of biopsy H/O tubal ligation Hx of endoscopy Hx laparoscopic cholecystectomy Hx of colonoscopy History of esophagogastroduodenoscopy (EGD) History of repair of inguinal hernia History of lymph node dissection of left axilla Family History Family History Maternal Grandmother Ovarian cancer Social History Social History Household Members: Significant Other Housing: Apartment Are you a primary wound care technician to a significant other at home: No Alcohol intake: never Comment: son at bedside Patient Tobacco Use Status: Never used Tobacco Tobacco use type: Cigarette Cigarette Packs Per Day: 1 Cigarettes Per Day: 20.0 Substance Use Type: Marijuana Advance Directives Date on File: 02/24/24 service: No Current occupational status: disabled 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 Physical Exam 2 Vital Signs: Vital Signs: Last Vital Signs Temp 98.3 F 07/27/24 11:04 Pulse 67 07/27/24 11:04 Resp 14 07/27/24 11:04 BP 135/74 07/27/24 11:04 Pulse Ox 99 07/27/24 11:04 O2 Del Method Room Air 07/27/24 11:04 BMI result Body Mass Index 31.6 Const: General: cooperative, comfortable and no acute distress O rientation/consciousness: patient oriented x3 Limitations: no limitations HEENT: Head: Yes normal to inspection, Yes normocephalic and Yes atraumatic Ears: hearing grossly normal bilaterally General nose exam: Normal external nose present Face and sinus: Yes normal facial exam Mouth: Normal oral and palatal mucosa present, oropharynx normal and moist mucous membranes Throat: Yes posterior oropharynx normal Eyes: General: appearance normal, both eyes and all related structures E yelids: Yes eyelids normal Conjunctivae: conjunctivae normal Sclerae: s clerae normal Pupils: Equal, round and reactive pupils present EOM: EOMs intact bilaterally Neck: Neck: Yes normal visual inspection, Yes full ROM and Yes no lymphadenopathy Lymphatic: no lymphadenopathy noted Chest: Other: She has mild TTP overlying the left anterior chest wall, worsening with movement of her left shoulder. Chest palpation & inspection: normal inspection of the chest Resp: Effort & Inspection: normal respiratory effort and able to speak in complete sentences Auscultation: clear to auscultation bilaterally, no crackles, no rales, no rhonchi and no wheezes Cardio: Rate: regular rate Rhythm: regular rhythm Heart sounds: S1 normal heart sound present and S2 normal heart sound present GI: Inspection: Yes normal to inspection Skin: General skin exam: no rashes or lesions noted Trauma: no lacerations or abrasions Wounds: no wounds Neuro: General: patient oriented x3 and moves all extremities Cranial nerves: Yes Equal, round and reactive pupils present Extrem: Other: Left shoulder with no obvious bony deformity or swelling. She has TTP overlying the distal left clavicle, extending into the left side of chest and diffusely throughout the left shoulder and left upper trapezius muscle with spasm noted. Strong radial pulse. Decreased ROM of the left shoulder secondary to pain. General: Yes normal to inspection Right upper extremity: normal to inspection Left upper extremity: normal to inspection Right lower extremity: normal to inspection Left lower extremity: normal to inspection Medications Administered Discontinued Medications Generic Name Dose Route Start Last Admin Trade Name Freq PRN Reason Stop Dose Admin Acetaminophen 975 mg 07/27/24 07:53 07/27/24 08:40 Acetaminophen 325 Mg Tablet PO 07/27/24 07:54 975 mg ONCE ONE Administration Diazepam 5 mg 07/27/24 07:53 07/27/24 08:40 Diazepam 5 Mg Tablet PO 07/27/24 07:54 5 mg ONCE ONE Administration Lidocaine 1 patch 07/27/24 07:53 07/27/24 08:39 Lidocaine 4 % Patch Adh..Patch TRANSDERMA 07/27/24 07:54 1 patch ONCE ONE Administration Protocol Medical Decision Making Medical Decision Making [facility] Narrative: 49 y/o F presenting to the ER with complaints of left shoulder pain x 3 days. Atraumatic. She admits to being under alot of stress due to neighbors and is not sleeping well. No CP or SOB. Left shoulder with no bony abnormalities, however with pain with palpation, decreased ROM. Likely MSK in nature. Labs, ekg was performed prior to my evaluation given PMHx of ACS. EKG and labs reassuring. XR was perfoormed which revealed Mild calcific tendinopathy of the infraspinatus tendon. Discussed with patient, she will f/u with orthopedics. Given return precautions. She understands and agrees with plan. Stable for d/c Differential Diagnosis Differential Diagnoses: The differential diagnosis associated with the presentation includes ACS - unlikely, Left shoulder tendonitis, ligamentous injury, adhesive capsulitis. Lab Data MDM Lab Attestation statement: I reviewed the patient's lab results. No leukocytosis, H&H revealing normocytic anemia, neg trop x 2. slight elevation in liver enzymes, similar to previous. 07/27/24 01:09 07/27/24 01:09 Labs: Lab Results 07/27/24 07/27/24 Range/Units 01:09 03:49 WBC 4.9 (4.8-10.8) X10*3/uL RBC 3.62 L (4.20-5.50) X10*6/uL Hgb 10.2 L (12.0-16.0) g/dl Hct 31.7 L (37.0-47.0) % MCV 87.6 (80.0-98.0) fL MCH 28.2 (27.0-33.0) pg MCHC 32.2 (31.0-35.0) g/dl RDW 14.0 (11.0-16.0) % Plt Count 300 (160-400) X10*3/uL MPV 10.1 (9.4-12.3) fL Immature Gran % (Auto) 0.2 (0.0-0.4) % Neut % (Auto) 61.2 (45-73) % Lymph % (Auto) 29.7 (20-40) % [place] % (Auto) 7.1 (2-11) % Eos % (Auto) 1.6 (0-4) % Baso % (Auto) 0.2 (0-2) % Lymph # (Auto) 1.5 (1.2-4.9) X10*3/uL [place] # (Auto) 0.4 (0.1-1.2) X10*3/uL Eos # (Auto) 0.1 (0.0-0.4) X10*3/uL Baso # (Auto) 0.0 (0.0-0.2) X10*3/uL Abs Immat Gran (auto) 0.01 (0.00-0.03) X10*3/uL Absolute Neuts (auto) 3.0 (2.0-8.3) x10*3/uL Absolute Nucleated RBC 0.000 (0.0-0.012) X10*3/uL Nucleated RBC % (auto) 0.0 (0.0-0.2) /100WBC Sodium 140 (135-145) mmol/L Potassium 3.1 L D (3.3-5.1) mmol/L Chloride 105 (96-108) mmol/L Carbon Dioxide 23 (22-29) mmol/L Anion Gap 15 (12-20) BUN 11 (9-16) mg/dL Creatinine 0.73 (0.5-1.4) mg/dL Estim Creat Clear Calc 98.5 Estimated GFR > 60 Random Glucose 107 (60-115) mg/dL Calcium 9.2 (8.4-10.2) mg/dL Total Bilirubin 0.5 (0.0-1.0) mg/dL AST 48 H (5-31) U/L ALT 32 H (0-31) U/L Alkaline Phosphatase 151 H (39-117) U/L Troponin I High Sens < 2.7 D < 2.7 (<3.5-17.0) ng/L Total Protein 8.5 H (6.5-8.0) g/dL Albumin 3.7 (3.5-5.0) g/dL Lipase 33 (8-78) U/L Independent Interpretation I performed an independent interpretation of an: EKG Interpretation: NSR at 60bpm. No STEMI. Radiology Impression Discussion of test interpretation with radiology: I have reviewed the radiologist's reading. Radiologist Impression: [address] [id number] XRay Report Signed Patient: Ginette Arceo MR#: [id number] : 1975 Acct:[id number] Age/Sex: 49 / F ADM Date: 07/27/24 Loc: HO.ED Attending Dr: Ordering Physician: Jana Mcdaniel Date of Service: 07/27/24 Procedure(s): XR shoulder LT min 2V Accession Number(s): [id number] cc: Mackenzie Estrada; Jana Mcdaniel~ EXAMINATION: XR SHOULDER, LEFT CLINICAL INFORMATION: pain COMPARISON: None available. TECHNIQUE: AP external rotation, Grashey, scapular Y, and axillary views of the left shoulder. FINDINGS: No fracture, dislocation, or suspicious bone lesion. There is normal alignment. Glenohumeral joint space and AC joint appear normal. Neutral lateral acromion without significant spurring. No evidence of outlet stenosis. Subacromial space is preserved. Tiny amount of calcification of the supraspinatous tendon abutting the footplate attachment. Soft tissues otherwise normal. Remainder of the bony structures and soft tissues appear normal. XR/XR shoulder LT min 2V IMPRESSION: 1. No acute findings, or significant arthritic changes left shoulder. 2. Mild calcific tendinopathy of the infraspinatus tendon. Electronically signed by: Arian Mondragon MD 07/27/2024 09:09 AM EST RP XR/XR chest 2V IMPRESSION: Normal chest. Electronically signed by: Arian Mondragon MD 07/27/2024 09:06 AM EST RP Dictated By: Arian Mondragon MD [place] [id number] XRay Report Signed Patient: Ginette Arceo MR#: [id number] : 1975 Acct:[id number] Age/Sex: 49 / F ADM Date: 07/27/24 Loc: .ED Attending Dr: Ordering Physician: Jana Mcdaniel Date of Service: 07/27/24 Procedure(s): XR clavicle LT Accession Number(s): [id number] cc: Mackenzie Estrada; Jana Mcdaniel~ EXAMINATION: XR CLAVICLE, LEFT CLINICAL INFORMATION: pain COMPARISON: None available. TECHNIQUE: Straight AP and cephalad angulated AP views of the left clavicle. FINDINGS: The clavicle is intact. The bones and soft tissues are normal. No fracture. Acromioclavicular joint alignment is anatomic. XR/XR clavicle LT IMPRESSION: Normal left clavicle. Electronically signed by: Arian Mondragon MD 07/27/2024 09:05 AM [facility] [place] Dictated By: Arian Mondragon MD Discharge Plan Discharge Clinical Impression: Left shoulder pain Patient Disposition: Home, Self-Care Instructions: Arthralgia (ED), Shoulder Pain (ED) Additional Instructions: Your shoulder shows mild calcific tendinopathy of the infraspinatus tendon. You need to follow-up with the accounts specialist regarding this finding. Gentle stretching, massage, heat or ice can also help. Lidoderm patches can help. Take Tylenol as needed for pain. Take muscle relaxants as needed for pain. Please be advised that this can cause drowsiness, do not drink alcohol or drive while taking this medication. If any new or worsening symptoms occur including but not limited to worsening pain, chest pain, shortness of breath, please seek emergent care. Prescriptions: New acetaminophen [Tylenol Extra Strength] 500 mg tablet 500 mg PO QID PRN (Reason: pain) Qty: 30 0RF cyclobenzaprine 5 mg tablet 5 mg PO TID PRN (Reason: muscle spasm) Qty: 10 0RF lidocaine [Lidoderm] 5 % adhesive patch,medicated 1 patch topical DAILY Qty: 30 0RF Rx Instructions: leave on most painful area for up to 12 hrs No Action ascorbic acid (vitamin C) [Vitamin C] 500 mg tablet 1,000 mg PO QAM Qty: 180 2RF pantoprazole 40 mg tablet,delayed release (DR/EC) 40 mg PO DAILY Qty: 90 1RF lidocaine [Lidoderm] 5 % adhesive patch,medicated 1 patch topical DAILY MDD remove after 12 hours PRN (Reason: pain) Qty: 30 0RF Rx Instructions: leave on most painful area for up to 12 hrs atorvastatin 80 mg tablet 80 mg PO DAILY lidocaine-prilocaine 2.5-2.5 % cream 1 appl topical Q8-12H PRN (Reason: moderate pain) ferrous sulfate 325 mg (65 mg iron) tablet 325 mg PO QAM ursodiol 250 mg tablet 250 mg PO BID sertraline [Zoloft] 50 mg tablet 75 mg PO DAILY Eliquis 5 mg tablet 5 mg PO BID Incruse Ellipta 62.5 mcg/actuation blister with device 1 inh INHALATION DAILY vitamin A 3,000 mcg (10,000 unit) capsule 1 cap PO DAILY nicotine 7 mg/24 hr Patch 24 Hour 1 patch TRANSDERMAL Q24H cefadroxil 500 mg capsule 500 mg PO BID 7 Days Qty: 14 0RF doxycycline hyclate 100 mg tablet 100 mg PO BID 7 Days Qty: 14 0RF prednisone 20 mg tablet 40 mg PO DAILY Qty: 10 0RF albuterol sulfate 90 mcg/actuation Hfa Aerosol Inhaler 2 puff INHALATION Q6H PRN (Reason: Wheezing) famotidine 20 mg tablet 20 mg PO BID polyethylene glycol 3350 17 gram/dose powder 17 g PO DAILY PRN (Reason: Constipation) risperidone 1 mg tablet 1 mg PO BEDTIME risperidone 1 mg tablet 0.5 mg PO DAILY PRN (Reason: anxiety/agitation/paranoia) cholecalciferol (vitamin D3) [Vitamin D3] 25 mcg (1,000 unit) capsule 25 mcg PO DAILY docusate sodium [Colace] 100 mg capsule 100 mg PO BID PRN (Reason: Constipation) cyanocobalamin (vitamin B-12) 1,000 mcg/mL Solution 1,000 mcg IM QMONTH acetaminophen 325 mg Tablet 650 mg PO Q6H PRN (Reason: Pain, Mild (Pain Scale 1-3), fever or headache) Qty: 30 0RF clopidogrel 75 mg Tablet 75 mg PO DAILY Qty: 30 0RF nitroglycerin [Nitrostat] 0.4 mg Tablet, Sublingual 0.4 mg sublingual Q5MX3 PRN (Reason: Chest Pain) Qty: 30 0RF metoprolol tartrate 25 mg Tablet 25 mg PO BID Qty: 60 0RF Protocol: Hold for SBP/HR < HOLD for SBP < : 90 HOLD for HR < : 60 alprazolam 1 mg tablet 1 mg PO BEDTIME PRN (Reason: Anxiety) trazodone 150 mg tablet 150 mg PO BEDTIME PRN (Reason: anxiety/sleep) benztropine 0.5 mg tablet 0.5 mg PO DAILY oxycodone-acetaminophen 7.5-325 mg tablet 1 tab PO Q8H PRN (Reason: severe pain) gabapentin 400 mg capsule 400 mg PO TID methotrexate sodium 2.5 mg tablet 25 mg PO QWEEK Qty: 120 1RF Rx Instructions: Split dose into 5 tabs in the morning and 5 tabs at night folic acid 1 mg tablet 1 mg PO DAILY Qty: 90 1RF Referrals: [facility] [place] [facility] Surgeons [Provider Group] Interventions: ED Discharge Assessment Last Done: 07/27/24 11:04 Discharge Date/Time: 07/27/24 11:05 Print Language: Slovak
[2024-07-27 07:13] LABS: Lipase 33 U/L (8-78)
[2024-07-27 07:49] VITALS: BP 135/74; PULSE 67; RESP 14; TEMP 36.8; O2SAT 99
[2024-07-27] MEDS: Lidocaine 4 % Patch ADH..PATCH 1 PATCH TRANSDERMA (08:39)
[2024-07-27] MEDS: diazePAM 5 MG TABLET PO (08:40)
[2024-07-27] MEDS: Acetaminophen 325 MG TABLET 975 MG PO (08:40)
--- NOTE | 2024-07-27 10:32 | PC.NURSE ---
pt up and ambulating in ED without pain increase. Provider at the bedside to review results for discharge planning
[2024-07-27 11:04] VITALS: BP 135/74; PULSE 67; RESP 14; TEMP 36.8; O2SAT 99
== END 2024-07-27 11:05 | disposition home or self-care (01) ==
PROVIDERS: Physician Assistant Medical; Emergency Provider Emergency Medicine; PCP General Practice
DX: M25.512 Pain in left shoulder (principal); R07.89 Other chest pain; I49.9 Cardiac arrhythmia, unspecified; Z86.718 Personal history of other venous thrombosis and embolism; Z79.01 Long term (current) use of anticoagulants; Z79.899 Other long term (current) drug therapy
CPT/HCPCS: 36415; 71046; 73000; 73030; 80053; 83690; 84484; 85025; 93005; 99283; 99285

== ENCOUNTER → 2024-07-27 01:08 | Outpatient (BNV) | payer MEDICAID, SELFPAY | PROVIDERS: Emergency Provider Emergency Medicine; PCP General Practice; Visit Provider Internal Medicine Cardiovascular Disease | DX: I49.9 Cardiac arrhythmia, unspecified (principal) | CPT/HCPCS: 93010 ==

== ENCOUNTER → 2024-07-27 07:20 | Outpatient (BNV) | payer MEDICAID, SELFPAY | PROVIDERS: Emergency Provider Emergency Medicine; PCP General Practice; Visit Provider Radiology Diagnostic Radiology | DX: R07.9 Chest pain, unspecified (principal); M25.512 Pain in left shoulder | CPT/HCPCS: 71046; 73000; 73030 ==

== ENCOUNTER 2024-08-15 12:33 | Outpatient (AMB) | payer MEDICAID, SELFPAY ==
--- NOTE | 2024-08-15 13:55 | MHC.OFFVIS ---
Intake Visit Reasons: New prob- B/L elbow calcified mass Intake Note: Ginette 49 yr old female presents today for a new problem visit for bilateral elbow. States her left is currently worse. States she was seen with her O.A doctor who referred her to be evaluated for bilateral elbows s/p infection. States she was hospitalized for about 3 days (ED visit 06/12/24) to receive ABX. Currently states she is a little better however she is still having drainage. Model And Dye Person Name: Livia [id number] Allergies almond [ALMONDS] Allergy (Severe, Verified 07/27/24 00:43) ANAPHYLAXIS adhesive tape [ADHESIVE TAPE] Allergy (Intermediate, Verified 07/27/24 00:43) RASH morphine [MORPHINE] Allergy (Intermediate, Verified 07/27/24 00:43) GI UPSET, difficulty breathing leflunomide Adverse Reaction (Intermediate, Verified 07/27/24 00:43) twitching tramadol [TRAMADOL] Adverse Reaction (Unknown, Verified 07/27/24 00:43) NAUSEA & VOMITING HPI HPI New prob- B/L elbow calcified mass: Details: Ginette is a 49 year old right hand dominant Danish speaking woman presenting to discuss bilateral elbow masses. She has known right Rheumatoid synovitis, De Quervain's tenosynovitis, & right Carpal Tunnel syndrome. Model And Dye Person service used. She complains of bilateral elbow masses, L>R, which are causing her pain. She was seen in the ED on 06/12/24 for cellulitis & drainage from her left elbow mass. She was admitted for 2 days and says this improved with IV and oral Abx. This was then followed by a period of intermittent drainage from the left elbow. She denies any drainage from her right elbow. She was referred here by her City Superintendent. Per the note from Dr. Elkins on 07/03/24 Referred by RA for evaluation and possible biopsy. Rheumatoid nodule with calcinosis cutis on top, no Hx of Gout but a urine test was ordered She is a chronic pain patient, which she manages her pain with Percocets, taking 1-3 pills daily, prn, depending on her pain level. She says it is easier to work on her motion after taking the medication. She has a regular pill count performed without issue. She has been following with Dr. Ram for her rheumatoid arthritis and lupus. She has received a carpal tunnel injection in the past, with relief She has been following with Dr. Hughes concerning her PAD and potential blood clots. She has CAD and recently had a stent placed. She says she has quit smoking at this time *Please see my detailed notes from 09/21/22 & 03/23/22 for more information about her history.* [facility] Medical History Iron deficiency Seropositive rheumatoid arthritis Skin lesion Anxiety Achilles tendinitis Superficial femoral artery occlusion Knee pain, left Depression Hx of peripheral pulmonary artery stenosis PAD (peripheral artery disease) History of chemotherapy Cancer of heart Bone cancer Lung cancer Bleeding hemorrhoid Degeneration, intervertebral disc, lumbar Chronic GERD Degeneration of intervertebral disc at C4-C5 level Osteoarthritis of spine with radiculopathy, lumbar region Fibromyalgia Esophageal dysphagia Vitamin D deficiency Systemic lupus erythematosus Seropositive rheumatoid arthritis Rheumatoid arthritis involving multiple sites Gallstones Stress incontinence in female Nocturia Urgency-frequency syndrome De Quervain's disease (tenosynovitis) Depressive disorder Acute arthritis Hodgkin disease Surgical History History of heart surgery History of surgical removal of skin lesion (~07/13/23) History of angioplasty of vein History of biopsy H/O tubal ligation Hx of endoscopy Hx laparoscopic cholecystectomy Hx of colonoscopy History of esophagogastroduodenoscopy (EGD) History of repair of inguinal hernia History of lymph node dissection of left axilla Family History Maternal Grandmother Ovarian cancer Social History Household Members: Significant Other Housing: Apartment Are you a primary career orientation teacher to a significant other at home: No Alcohol intake: never Comment: son at bedside Patient Tobacco Use Status: Never used Tobacco Tobacco use type: Cigarette Cigarette Packs Per Day: 1 Cigarettes Per Day: 20.0 Substance Use Type: Marijuana Advance Directives Date on File: 02/24/24 service: No Current occupational status: disabled 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 This is a Rheumatoid nodule vs tophi. This is mildly tender. No erythema, drainage, or warmth today in clinic. this appears well-healed without evidence of infection There is a mass on the tip of the olecranon of the right elbow. This is a Rheumatoid nodule vs tophi. No tenderness. No erythema, drainage, or warmth today in clinic. Good elbow ROM bilaterally Psych Appearance: grossly normal Affect: normal affect Attitude: cooperative Assessment & Plan Assessment & Plan (1) Seropositive rheumatoid arthritis: Comment: RF++CCP++ On prednisone throughout until it was discontinued 10/2023 due to left femur avascular necrosis methotrexate and hydroxychloroquine ?2019 Xeljanz 05/2020-08/2020(ineffective) 2020 methotrexate and Humira(HCQ stopped - ?vision changes). 06/2022 Humira stopped due to poor repsonse 06/2022 methotrexate and Actemra 12/2022: Actemra stopped by the patient. She had some leg swelling as well. 03/10/2023 and 03/24/23: 1 g on each day rituximab administered Olumiant 08/2023 effective Leflunomide added 01/2024 ineffective and caused twitching Orencia infusions 05/2024 Code(s): M05.9 - Rheumatoid arthritis with rheumatoid factor, unspecified Category: Medical Plan Assessment & Plan: 1. Left olecranon soft tissue mass Consistent with calcinosis cutis, possible rheumatoid nodule vs gouty tophi 2. Right olecranon soft tissue mass Consistent with calcinosis cutis, possible rheumatoid nodule vs gouty tophi No drainage or evidence of infection at this time. All in all the left side has continued to improve, though it is still mildly tender I educated her about these conditions I discussed treatment options I am hesitant about considering surgical intervention at this time as this risks wound healing or possible recurrent infection I will reach out to Dr. Elkins, her City Superintendent, to discuss the risks & benefits of a possible biopsy No intervention warranted at this time I recommend she continue to work on gentle ROM exercises She will follow up prn 3. Right hand & wrist rheumatoid arthritis/synovitis Consistent with findings on MRI from 12/23/2021 Significant improvement in swelling, tenderness, and function with improved medical control of her RA & Lupus medications A component of this was symptoms of De Quervain's, for which we injected on 11/18/21. 4. Bilateral hand and finger stiffness Likely related to her RA and disuse. Improved with OT and at-home exercises 5. Right carpal tunnel syndrome, Mild Nerve conduction study performed on 07/03/2021. She was injected on 01/19/22, as she was developing dense numbness in the median nerve distribution. With good resolution of her symptoms following her injection. She has been following with Dr. Ram concerning her RA and rheumatoid synovitis. She is currently taking Methotrexate and Orencia. She also uses Percocets to manage her pain. I encouraged her to continue to work closely with Dr. Ram to keep control of her RA and Lupus Note that she is currently on Eliquis for two right lower extremity DVT. She was cleared of any RUE DVT on an ultrasound from 01/26/22. Please see the report as needed. Please note that greater than 30 minutes was spent with this patient going over the history, evaluating the patient and radiographs, formulating possible treatment options, discussing them with the patient, and documenting the visit. This patient should always be scheduled for a 30 minute appointment when scheduled with me Scribed for Becky Card MD by Owen Fountain, medical laboratory scientist, on 08/15/24 at 2:35 PM, EST. Coding Level of Care Code Est Pt Level 3 (02207) Diagnoses Seropositive rheumatoid arthritis M05.9
== END 2024-08-15 14:56 | disposition home or self-care (01) ==
PROVIDERS: Visit Provider Orthopaedic Surgery
DX: M05.9 Rheumatoid arthritis with rheumatoid factor, unspecified (principal)
CPT/HCPCS: 99213

== ENCOUNTER → 2024-08-15 12:33 | Outpatient (BNVA) | payer MEDICAID, SELFPAY | PROVIDERS: Visit Provider Orthopaedic Surgery | DX: M05.9 Rheumatoid arthritis with rheumatoid factor, unspecified (principal) | CPT/HCPCS: 99212 ==

== ENCOUNTER 2024-08-27 08:56 | Outpatient (AMB) | payer MEDICAID, SELFPAY ==
[2024-08-27 09:06] VITALS: BMI 29.2
--- NOTE | 2024-08-27 09:06 | A.OFFVIS_ITS ---
Vital Signs 08/27/24 09:06 Height 5 ft 6 in Weight 181 lb BMI 29.2 Intake Visit Reasons: New prob- ED f/u Left shoulder pain Intake Note: Ginette is a 49 year old female who presents today for an ER follow up of left shoulder. Patient reports her pain has been present since her ER visit that has been getting worse. Her pain is constant that radiates up her towards her neck and down to her elbow. No known injury. Denies any numbness or tingling. Limited ROM. Her current pain level is a 10 out of 10. No other tx. Finds no relief with taking oxycodone-acetaminophen. Greenhouse Assistant Required: Yes Greenhouse Assistant Services: Greenhouse Assistant Present Greenhouse Assistant Name: Magno ID#[id number] Allergies almond [ALMONDS] Allergy (Severe, Verified 08/27/24 09:07) ANAPHYLAXIS adhesive tape [ADHESIVE TAPE] Allergy (Intermediate, Verified 08/27/24 09:07) RASH morphine [MORPHINE] Allergy (Intermediate, Verified 08/27/24 09:07) GI UPSET, difficulty breathing leflunomide Adverse Reaction (Intermediate, Verified 08/27/24 09:07) twitching tramadol [TRAMADOL] Adverse Reaction (Unknown, Verified 08/27/24 09:07) NAUSEA & VOMITING Medication List - Last Reconciled 08/27/24 by Stephen Moreno PA-C acetaminophen (Tylenol Extra Strength) 500 mg PO QID PRN albuterol sulfate 90 mcg/actuation 2 puffs inhalation Q6H PRN alprazolam 1 mg PO BEDTIME PRN apixaban (Eliquis) 5 mg PO BID ascorbic acid (vitamin C) (Vitamin C) 1,000 mg (2 x 500 mg) PO QAM atorvastatin 80 mg PO DAILY cholecalciferol (vitamin D3) (Vitamin D3) 25 mcg PO DAILY cyanocobalamin (vitamin B-12) 1,000 mcg IM QMONTH docusate sodium (Colace) 100 mg PO BID PRN doxycycline hyclate 100 mg PO BID 7 days ferrous sulfate 325 mg PO QAM folic acid 1 mg PO DAILY gabapentin 400 mg PO TID lidocaine 5% (Lidoderm) 1 patch topical DAILY lidocaine-prilocaine 2.5-2.5 % 1 appl topical Q8-12H PRN methotrexate sodium 25 mg (10 x 2.5 mg) PO QWEEK nicotine 1 patch transdermal Q24H nitroglycerin (Nitrostat) 0.4 mg sublingual Q5MX3 PRN oxycodone-acetaminophen 7.5-325 mg 1 tab PO Q8H PRN pantoprazole 40 mg PO DAILY polyethylene glycol 3350 17 grams PO DAILY PRN prednisone 40 mg (2 x 20 mg) PO DAILY risperidone 1 mg PO BEDTIME risperidone 0.5 mg PO DAILY PRN sertraline (Zoloft) 75 mg PO DAILY trazodone 150 mg PO BEDTIME PRN umeclidinium 62.5 mcg/actuation (Incruse Ellipta) 1 inh inhalation DAILY ursodiol 250 mg PO BID vitamin A 1 cap PO DAILY HPI HPI New prob- ED f/u Left shoulder pain: Details: 49-year-old female presents to the office today for pain in the left shoulder x2 months. She was initially seen in the emergency department for left shoulder pain where x-rays were obtained and negative for acute fractures or dislocations. She states she has pain at all times which is worse with overhead movements such as lifting and reaching. She has pain that goes all the way down the arm into the hand and fingers. This is associated with numbness. She has also developed some stiffness in the hand due to the pain. [facility] Medical History Iron deficiency Seropositive rheumatoid arthritis Skin lesion Anxiety Achilles tendinitis Superficial femoral artery occlusion Knee pain, left Depression Hx of peripheral pulmonary artery stenosis PAD (peripheral artery disease) History of chemotherapy Cancer of heart Bone cancer Lung cancer Bleeding hemorrhoid Degeneration, intervertebral disc, lumbar Chronic GERD Degeneration of intervertebral disc at C4-C5 level Osteoarthritis of spine with radiculopathy, lumbar region Fibromyalgia Esophageal dysphagia Vitamin D deficiency Systemic lupus erythematosus Seropositive rheumatoid arthritis Rheumatoid arthritis involving multiple sites Gallstones Stress incontinence in female Nocturia Urgency-frequency syndrome De Quervain's disease (tenosynovitis) Depressive disorder Acute arthritis Hodgkin disease Surgical History History of heart surgery History of surgical removal of skin lesion (~07/13/23) History of angioplasty of vein History of biopsy H/O tubal ligation Hx of endoscopy Hx laparoscopic cholecystectomy Hx of colonoscopy History of esophagogastroduodenoscopy (EGD) History of repair of inguinal hernia History of lymph node dissection of left axilla Family History Maternal Grandmother Ovarian cancer Social History Household Members: Significant Other Housing: Apartment Are you a primary ambulatory care coordinator to a significant other at home: No Alcohol intake: never Comment: son at bedside Patient Tobacco Use Status: Never used Tobacco Tobacco use type: Cigarette Cigarette Packs Per Day: 1 Cigarettes Per Day: 20.0 Substance Use Type: Marijuana Advance Directives Date on File: 02/24/24 service: No Current occupational status: disabled 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 Active external rotation to 45 I can passively bring her to 90. Pain with internal rotation. She is extremely hypersensitive to palpation along the shoulder trapezium into the neck. Neurovascularly intact. Office Procedures AMB Joint Injection/Aspiration Joint Injection/Aspiration Primary Site: left shoulder Prep: site was prepped using aseptic technique, ethochloride spray was applied and injection warnings given Injected: 80 mg of, DepoMedrol, with 8 mL of, 1% plain lidocaine and in the subcromial space Approach Used: posterolateral Procedure: The patient tolerated the procedure well and there was some relief with the local anesthesia Coding 36716 - Glenohumeral/Tronchanteric Bursa/Intraarticular Procedure code (CPT) selection complete Results Reviewed Results Reviewed: xrays left shoulder 07/27/24 IMPRESSION: 1. No acute findings, or significant arthritic changes left shoulder. 2. Mild calcific tendinopathy of the infraspinatus tendon. Assessment & Plan Assessment & Plan (1) Left shoulder tendonitis: Code(s): M77.8 - Other enthesopathies, not elsewhere classified Category: Medical (2) Myofascial pain syndrome, cervical: Code(s): M79.18 - Myalgia, other site Category: Medical Plan We discussed options today which include cortisone injection. Patient did consent to a left shoulder steroid injection which she tolerated well. I also placed an order for physical therapy and a referral to Dr. Bonilla for evaluation fibromyalgia/myofascial pain. Orders: Orders PT Evaluation and Treatment Today M77.8 - Other enthesopathies, not elsewhere classified, M79.18 - Myalgia, other site Coding Level of Care Code Est Pt Level 3 (91825) Complex EM visit Add On G2211 Diagnoses Left shoulder tendonitis M77.8 Myofascial pain syndrome, cervical M79.18 CPT Codes Coding - Joint 7: 61039 - Glenohumeral/Tronchanteric Bursa/Intraarticular ([id number])
--- OUTSIDE RECORDS SUMMARY | 2024-08-27 13:15 | XMS_ITS | Encounter Summary ---
Author Organization [facility] Address [address] [place] [address] [address] [place] [address] Care Team Providers Care Floor Layer Apprentice Name Role Phone Mackenzie Estrada MD Primary Care Provider [phone] Reason for Visit * Reason Comments Med Refill Encounter Details Date Type Department Care Team ([facility] Contact Info) Description 12/10/2022 Refill [facility] [address] [place] [address] [phone] Mackenzie Estrada MD [address], [place] [phone] Pain in both hands Social History Tobacco Use Types Packs/Day Years Used Date Smoking Tobacco: Every Day Cigarettes Passive Smoke Exposure: Never Smokeless Tobacco: Never Alcohol Use Standard Drinks/Week Comments Never 0 (1 standard drink = 0.6 oz pur e alcohol) Comments Unknown Sex and Gender Information Value Date Recorded Sex Assigned at Female 05/31/2022 10:18 AM EDT Legal Sex Female 10:18 AM EDT Gender Identity Female 05/31/2022 10:18 AM EDT Sexual Orientation Straight 05/31/2022 10 :18 AM EDT COVID-19 Exposure Response Date Recorded In the last 10 days, have yo u been in contact with someone who was confirmed or suspected to have Coronavirus/COVID-19? No / Unsure 12/01/2022 2:37 PM EDT documented as of this encounter Plan of Treatment Upcoming Encounters Date Type Department Care Team ([facility] Contact Info) Description 09/11/2024 9:45 AM EST Office Visit [facility] [address] [place] [address] [phone] 09/24/2024 3:15 PM EST Office Visit [facility] [address] [place] [phone] Mackenzie Estrada MD [address], [place] [phone] 10/01/2024 10:00 AM EST Office Visit [facility] [address], [place] [phone] Libra Linder, OD [address] [place], [place] [phone] documented as of this encounter Visit Diagnoses Diagnosis Pain in both hands documented in this encounter Care Teams Floor Layer Apprentice Relationship Specialty Start Date End Date Mackenzie Estrada MD [address], [place] [phone] PCP - General Family Medicine 07/10/20 documented as of this encounter
--- OUTSIDE RECORDS SUMMARY | 2024-08-27 13:15 | XMS_ITS | Encounter Summary ---
Author Organization [employer] Address [address] [facility] [address] [facility] [facility] [address] [place] [address] Care Team Providers Care Travel Director Name Role Phone Mackenzie Estrada MD Primary Care Provider Reason for Visit * Reason Comments Med Refill Encounter Details Date Type Department Care Team ([facility] Contact Info) Description 08/19/2024 Refill [facility] MEDICINE [address] [place], [place] [phone] Mackenzie Estrada MD [address] [place], [place] [phone] Social History Tobacco Use Types Packs/Day Years Used Date Smoking Tobacco: Former Cigarettes Passive Smoke Exposure: Never Smokeless Tobacco: Never Alcohol Use Standard Drinks/Week Comments Never 0 (1 standard drink = 0.6 oz pur e alcohol) Alcohol Answer Date Recorded Frequency of Alcohol Consumption Not on file 05/02/2023 Average Number of Drinks Not on file 023 Frequency of Binge Drinking Not on file 09/2022 Score 0 05/02/2023 Depression Answer Date Recorded Patient Health Questionnaire-9 Score 2 04/30/2024 Patient Health Questionnaire-9 Score 2 04/30/2024 Last PHQ-9: Questionnaire Data Not on file 0 04/30/2024 Housing Stability Answer Date Recorded What is your housing situation today? I have mendoza prince 05/15/[address] you li ve. Do you have problems with any of the following? None of the above 05/15/2023 Food Insecurity Answer Date Recorded Within the past 12 months, y ou worried that your food would run out before you got money to buy more: Never True 05/15/2023 Within the past 12 months,th e food you bought just didn't last and you didn't have enough money to get more: Never True Transportation Answer Date Recorded In the past 12 months, has l ack of transportation kept you from medical appts, meetings, work or from getting things needed for daily living? Yes, it has kept me from non-medical meetings, work, or getting things that I need 12/20/2023 Utilities Answer Date Recorded In the past 12 months, has t he electric, gas, oil or water company threatened to shut off services in your home? No 05/15/2023 Depression Answer Date Recorded Patient Health Questionnaire-2 Score 2 04/30/2024 Comments Unknown Sex and Gender Information Value Date Recorded Sex Assigned at Female 05/31/2022 10:18 AM EDT Legal Sex Female 10:18 AM EDT Gender Identity Female 05/31/2022 10:18 AM EDT Sexual Orientation Straight 05/31/2022 10 :18 AM EDT documented as of this encounter Plan of Treatment Upcoming Encounters Date Type Department Care Team (Late st Contact Info) Description 09/11/2024 9:45 AM EST Office Visit [facility] MEDICINE [address] [place] [address] 09/24/2024 3:15 PM EST Office Visit [facility] MEDICINE [address] [place] [phone] Mackenzie Estrada MD [address] [place] [address] 10/01/2024 10:00 AM EST Office Visit [facility] OPTOMETRY [address] [place] [address] Libra Linder, LAW [address] [place] [address] documented as of this encounter Goals Goal Patient Goal Type Associated Problems Recent Progress Patient-Stated? Author Quit using tobacco (cigarettes, smokeless, etc) Tobacco Use No Corey Lin, PharmD documented as of this encounter Visit Diagnoses Not on filedocumented in this encounter Additional Health Concerns Assessment Noted Time PHQ-9 Depression Total Score: 2 04/30/20 24 10:41 AM EDT documented as of this encounter Care Teams Travel Director Relationship Specialty Start Date End Date Mackenzie Estrada MD [address] [place] [address] PCP - General Family Medicine 07/10/20 documented as of this encounter
--- OUTSIDE RECORDS SUMMARY | 2024-08-27 13:15 | XMS_ITS | Encounter Summary ---
Author Organization [employer] Address [address] 7[address] [place] [address] Care Team Providers Care Heat Plant Specialist Name Role Phone Mackenzie Estrada MD Primary Care Provider [phone] Reason for Visit * Reason Onset Date Comments Appointment Request 08/16/2024 Encounter Details Date Type Department Care Team ([facility] Contact Info) Description 08/16/2024 Telephone [facility] MEDICINE [address] [place], [place] [phone] Hanny Lacy [place] Appointment Request Social History Tobacco Use Types Packs/Day Years [...] AM EDT documented as of this encounter Miscellaneous Notes * Telephone Encounter - Hanny Lacy MA - 08/16/2024 10:22 AM EST T/C placed to pt to schedule appt w/pcp to follow up on DME/chronic pain. Lvm for pt to cb & schedule appt. Sent RCL documented in this encounter Plan of Treatment Upcoming Encounters Date Type Department Care Team (Late st Contact Info) Description 09/11/2024 9:45 AM EST Office Visit [facility] MEDICINE [address] [place] [address] 09/24/2024 3:15 PM EST Office Visit [facility] MEDICINE [address] [place] [address] Mackenzie Estrada MD [address] [place] [address] 10/01/2024 10:00 AM EST Office Visit [facility] OPTOMETRY [address] [place] [address] Libra Linder OD [address] [place] [address] documented as of this encounter Goals Goal Patient Goal Type Associated Problems Recent Progress Patient-Stated? Author Quit using tobacco (cigarettes, smokeless, etc) Tobacco Use No Corey Lin, KelechiD documented as of this encounter Visit Diagnoses Not on filedocumented in this encounter Additional Health Concerns Assessment Noted Time PHQ-9 Depression Total Score: 2 04/30/20 24 10:41 AM EDT documented as of this encounter Care Teams Heat Plant Specialist Relationship Specialty Start Date End Date Mackenzie Estrada MD [address] [place] [address] PCP - General Family Medicine 07/10/20 documented as of this encounter
--- OUTSIDE RECORDS SUMMARY | 2024-08-27 13:15 | XMS_ITS | Clinical Summary ---
Author Organization [facility] Address [address] [place] [address] Care Team Providers Care Quality Assurance Consultant Name Role Phone Sanjay Cruz MD Primary Care [facility] Surgical History Surgery Date Site/Laterality Comments OTHER SURGICAL HISTORY 05/12/2020 Right PROCEDURE: PA BX/EXC LYMPH NODE OPEN SUPERFICIAL; COMMENT: Axillary Lymph Node biopsy- Benign Lymphoid Tissue OTHER SURGICAL HISTORY 12/19/2019 Right PROCEDURE: PA BX/EXC LYMPH NODE NEEDLE SUPERFICIAL; COMMENT: Axillary Lymph node -results were non daignostic Medical History Medical History Date Comments Anxiety DX:Anxiety Migraine DX:Migraine History of DVT (deep vein thrombosis) 05/23/2020 DX:History of DVT (deep vein thrombosis); COMMENT: 01/2005 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 0 DX:FPC current use of anticoagulant Acute deep vein thrombosis ( DVT) of brachial vein of right upper extremity (CMS/HCC) 05/09/2020 DX:Acute deep vein thrombosi s (DVT) of brachial vein of right upper extremity (HCC) Axillary lymphadenopathy 05/09/2020 DX:Axil harvinder lymphadenopathy Gastroesophageal reflux disease 05/09/2020 DX:Gastroesophageal reflux disease Personal history of Hodgkin lymphoma 05/09/2020 DX:Personal history of Hodgkin lymphoma Recurrent major depressive d isorder in remission (CMS/HCC) 05/09/2020 DX:Recurrent major depressiv e disorder in remission (HCC) Rheumatoid arthritis involvi ng multiple sites (CMS/HCC) 05/09/2020 DX:Rheumatoid arthritis invo lving multiple sites (HCC) Hodgkin's disease, nodular s clerosis, of lymph nodes of multiple sites (CMS/HCC) DX:Hodgkin's disease, nodula r sclerosis, of lymph nodes of multiple sites (HCC) Hypothyroidism, adult DX:Hypothy roidism, adult Anemia DX:Anemia Social History Tobacco Use Types Packs/Day Years Used Date Smoking Tobacco: Every Day Cigarettes Smokeless Tobacco: Never Alcohol Use Standard Drinks/Week Comments No 0 (1 standard drink = 0.6 oz pur e alcohol) Sex and Gender Information Value Date Recorded Sex Assigned at Not on file Gender Identity Not on file Sexual Orientation Not on file Obstetrics History Plan of Treatment Health Maintenance Due Date Last Done Comments Breast Cancer Screening 1976 DTaP,Tdap,and Td Vaccines (1 - Tdap) 1995 Hepatitis B Vaccines (1 of 3 - 19+ 3-dose series) 1995 Cervical Cancer Screening: P ap Smear 1997 COVID-19 Vaccine (2023-2 5 season) 2024 Influenza Vaccine (#1) 2024 HIB Vaccines Aged Out No longer eligi ble based on patient's age to complete this topic HPV Vaccines Aged Out No longer eligi ble based on patient's age to complete this topic Hepatitis A Vaccines Aged Out No long er eligible based on patient's age to complete this topic IPV Vaccines Aged Out No longer eligi ble based on patient's age to complete this topic MMR Vaccines Aged Out No longer eligi ble based on patient's age to complete this topic Meningococcal ACWY Vaccine Aged Out N o longer eligible based on patient's age to complete this topic Pneumococcal Vaccine: Pediat rics (0 to 5 Years) and At-Risk Patients (6 to 64 Years) Aged Out No longer eligible b ased on patient's age to complete this topic RSV Immunization Patients Un kacy 20 months Aged Out No longer eligible b ased on patient's age to complete this topic Varicella Vaccines Aged Out No longer eligible based on patient's age to complete this topic Care Teams Quality Assurance Consultant Relationship Specialty Start Date End Date Subramonia-Sanjay Espana MD [address] [place] [phone] PCP - General Internal Medicine 04/09/20
--- OUTSIDE RECORDS SUMMARY | 2024-08-27 13:15 | XMS_ITS | Encounter Summary ---
Author Organization [employer] Address [address] [facility] [facility] [address] [facility] [address] [place] [address] Care Team Providers Care Blast Furnace Tender Name Role Phone Mackenzie Estrada MD Primary Care Provider [phone] Encounter Details Date Type Department Care Team (Late st Contact Info) Description 08/14/2024 9:45 AM EST Office Visit [facility] MEDICINE [address] [place] [address] Sisi Kennedy FNP [address] [place], [place] [phone] Long-term current use of opiate analgesic (Primary Dx); 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 (CMS/HCC); Inflammatory arthritis Social History Tobacco Use Types Packs/Day Years [...] the past 12 months, has t he [employer], gas, oil or water [employer] threatened to shut off services in your home? No 05/15/2023 Depression Answer Date Recorded Patient Health Questionnaire-2 Score 2 04/30/2024 Comments Unknown Sex and Gender Information Value Date Recorded Sex Assigned at Female 05/31/2022 10:18 AM EDT Legal Sex Female 10:18 AM EDT Gender Identity Female 05/31/2022 10:18 AM EDT Sexual Orientation Straight 05/31/2022 10 :18 AM EDT documented as of this encounter Progress Notes * Sisi Kennedy, PHYSICIAN ALLERGIST IMMUNOLOGIST - 08/14/2024 9:45 AM EST Subjective: Ginette Lacy is a 49 y.o. female w/ PMH rheumatoid arthritis, lumbosacral stenosis, DVT, GERD, Hodgkin lymphoma, migraines, and chronic low back pain, who presents to the office for - Chronic Pain Clinic Group visits. Initial Group visit: 12/13/23 Group Visit Number: 4 Last PCP visit: 04/30/24, Dr. Estrada Group Confidentiality last signed: 12/13/23 Group Topic: Functional Goals Frances reports that she has had a recent flare of her chronic pain. Recently seen on 07/12/2024 in the walk-in center and had temporary increase in her Percocet dose for 5 days. Continues with generalized pain, swelling primarily in the left hand and fingers. Recently completed infusion through rheumatology for her rheumatoid arthritis. Unable to use prednisone with history of avascular necrosis. Chronic Pain History: Associated Diagnosis: Rheumatoid Arthritis Following with [facility] Rheumatology - Dr. Castro Per PCP Note: RF++CCP++ Regularly requiring bursts of prednisone 40-60mg for flares methotrexate and hydroxychloroquine ?2019 Xeljanz 05/2020-08/2020(ineffective) 2020 methotrexate and Humira(HCQ stopped - ?vision changes). 06/2022 Humira stopped due to poor repsonse 06/2022 methotrexate and Actemra 12/2022: Actemra stopped by the patient. She had some leg swelling as well. 03/10/2023 and 03/24/23: 1 g on each day rituximab administered Olumiant 2mg daily (Evelio 2 inhibitor) 08/2023 effective Additional meds: Prednisone 2.5 mg daily, methotrexate 20 mg weekly, folic acid 1 mg daily. Current pharm tx: Medication: Percocet 7.5-325mg Q8H PRN. States taking medication as prescribed. Review of Systems Constitutional: Negative for chills and fever. Respiratory: Negative for cough and wheezing. Cardiovascular: Negative for chest pain. Musculoskeletal: Positive for arthralgias. Physical Exam Constitutional: Appearance: Normal appearance. HENT: Head: Atraumatic. Pulmonary: Effort: Pulmonary effort is normal. Neurological: Mental Status: She is alert and oriented to person, place, and time. Psychiatric: Mood and Affect: Mood normal. Behavior: Behavior normal. Problem List Items Addressed This Visit Musculoskeletal Inflammatory arthritis Other 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 ([facility]) Overview - Following with [facility] Rheum: Dr. Castro - [facility] request for 10-in-1 pillow on 08/14/24 Long-term current use of opiate analgesic - Primary Overview Medication: Percocet 7.5/325mg TID PRN Indication: Rheumatoid arthritis Last PRINT CONTROLLER Agreement: 06/12/24 Current Assessment & Plan -Good engagement and participation with Group Medical Visit model -Encouraged multifactorial approach to pain control including pharm and non- pharm modalities -UTOX and Pill count as expected Relevant Orders POCT GALLO-14 Urine Drug Screen (Completed) Follow up: 1-2 months for Group Chronic Pain Clinic. Follow up as scheduled with PCP, sooner as needed. * Coral Somers RN - 08/14/2024 9:45 AM EST .PRINT CONTROLLER chain hoist operator: PDMP reviewed today. Last fill date: 07/26/24 (Percocet 7.5-325mg) count was (32), anticipated (26) to be remaining. .UTOX completed. Positive for (OXY, TCA, THC, BZO), Negative for AMP, BAR, BUP, ANKUSH, FTY, MDMA, MET, MOP, MTD, PCP. UTOX as expected. documented in this encounter Miscellaneous Notes * Assessment & Plan Note - FARHEEN Ng - 08/14/2024 4:38 PM ESTAssociated Problem(s): Long-term current use of opiate analgesic -Good engagement and participation with Group Medical Visit model -Encouraged multifactorial approach to pain control including pharm and non- pharm modalities -UTOX and Pill count as expected documented in this encounter Plan of Treatment Upcoming Encounters Date Type Department Care Team (Late st Contact Info) Description 09/11/2024 9:45 AM EST Office Visit [facility] MEDICINE [address] [place] [address] 09/24/2024 3:15 PM EST Office Visit [facility] MEDICINE [address] [place] [address] Mackenzie Estrada MD [address] [place] [address] 10/01/2024 10:00 AM EST Office Visit [facility] OPTOMETRY [address] [place] [address] Libra Linder, OD [address] [place] [address] documented as of this encounter Goals Goal Patient Goal Type Associated Problems Recent Progress Patient-Stated? Author Quit using tobacco (cigarettes, smokeless, etc) Tobacco Use Corey Cornell PharmD documented as of this encounter Procedures Procedure Name Priority Date/Time Associated Diagnosis Comments POCT GALLO-14 URINE DRUG SCREEN Routine 08/14/2024 1:47 PM EST Long-term current use of opiate analgesic documented in this encounter Results * POCT GALLO-14 Urine Drug Screen (08/14/2024 1:47 PM EST) THC Positive Benzodiazepines Screen, Urine Positive TCA, Urine Positive Oxycodone Screen, Urine Positive Urine Urine specimen obtained by clean catch procedure / Unknown 08/14/2024 1:47 PM EST Result [facility] Sisi Kennedy PHYSICIAN ALLERGIST IMMUNOLOGIST POINT OF CARE TEST ENTER/EDIT ORDERABLES Final Result documented in this encounter Visit Diagnoses Diagnosis Long-term current use of opiate analgesic- Primary Encounter for long-term (current) use of other medications 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 ([facility]) Inflammatory arthritis Unspecified inflammatory polyarthropathy documented in this encounter Additional Health Concerns Assessment Noted Time PHQ-9 Depression Total Score: 2 04/30/20 24 10:41 AM EDT documented as of this encounter Care Teams Blast Furnace Tender Relationship Specialty Start Date End Date Mackenzie Estrada MD [address] [place] [address] PCP - General Family Medicine 07/10/20 documented as of this encounter
--- OUTSIDE RECORDS SUMMARY | 2024-08-27 13:15 | XMS_ITS | Encounter Summary ---
Author Organization [employer] Address [address] [facility] 7t [place] [address] Care Team Providers Care Runner Worker Name Role Phone Mackenzie Estrada MD Primary Care Provider [phone] Reason for Visit * Reason Onset Date Comments Med Refill 08/22/2024 Encounter Details Date Type Department Care Team ([facility] st Contact Info) Description 08/22/2024 Refill [facility] MEDICINE [address] [place], [place] [phone] Mackenzie Estrada MD [address] [place] [address] 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 (CMS/HCC) Social History Tobacco Use Types Packs/Day Years [...] the past 12 months, has t he [employer], gas, oil or water [employer] threatened to shut off services in your [...] encounter Miscellaneous Notes * Telephone Encounter - Rigo Martinez - 08/22/2024 9:52 AM EST TC from pt requesting medication refill. Medications needing refill: oxyCODONE-acetaminophen (Percocet) 7.5-325 MG tablet To be sent to: [facility] [place], [place] - [address] [place] [address] documented in this encounter Plan of Treatment Upcoming Encounters Date Type Department Care Team (Late st Contact Info) Description 09/11/2024 9:45 AM EST Office Visit [facility] MEDICINE [address] [place] [address] 09/24/2024 3:15 PM EST Office Visit [facility] MEDICINE [address] [place] [address] Mackenzie Estrada MD [address] [place] [address] 10/01/2024 10:00 AM EST Office Visit [facility] OPTOMETRY [address] [place], [place] [phone] Kailash, Libra, OD [address] [place] [address] documented as of this encounter Goals Goal Patient Goal Type Associated Problems Recent Progress Patient-Stated? Author Quit using tobacco (cigarettes, smokeless, etc) Tobacco Use No Corey Lin, KelechiD documented as of this encounter Visit Diagnoses Diagnosis 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 (CMS/HCC) documented in this encounter Additional Health Concerns Assessment Noted Time PHQ-9 Depression Total Score: 2 04/30/20 24 10:41 AM EDT documented as of this encounter Care Teams Runner Worker Relationship Specialty Start Date End Date Mackenzie Estrada MD [address] [place] [address] PCP - General Family Medicine 07/10/20 documented as of this encounter
--- OUTSIDE RECORDS SUMMARY | 2024-08-27 13:15 | XMS_ITS | Encounter Summary ---
Author Organization [employer] Address [address] [place] [address] Care Team Providers Care Nut Grinder Name Role Phone Mackenzie Estrada MD Primary Care Provider [phone] Reason for Visit * Reason Onset Date Comments Durable Medical Equipment 08/15/2024 10 In 1 pillow Encounter Details Date Type Department Care Team ([facility] Contact Info) Description 08/15/2024 Telephone [facility] [address] [place], [place] [phone] Mackenzie Estrada MD [address] [place] [address] Durable Medical Equipment (10 In 1 pillow ) Social History Tobacco Use Types Packs/Day Years [...] the past 12 months, has t he [employer], gas, oil or water [employer] threatened to shut off services in your [...] encounter Miscellaneous Notes * Telephone Encounter - Sonya Price LPN - 08/15/2024 9:35 AM EST Rx generated and faxed to [facility] documented in this encounter Plan of Treatment Upcoming Encounters Date Type Department Care Team (Late st Contact Info) Description 09/11/2024 9:45 AM EST Office Visit [facility] MEDICINE [address] [place] [address] 09/24/2024 3:15 PM EST Office Visit [facility] MEDICINE [address] [place] [address] Mackenzie Estrada MD [address] [place] [address] 10/01/2024 10:00 AM EST Office Visit [facility] OPTOMETRY [address] [place] [address] Libra Linder, LAW [address] [place] [address] documented as of this encounter Goals Goal Patient Goal Type Associated Problems Recent Progress Patient-Stated? Author Quit using tobacco (cigarettes, smokeless, etc) Tobacco Use Corey Cornell, KelechiD documented as of this encounter Visit Diagnoses Not on filedocumented in this encounter Additional Health Concerns Assessment Noted Time PHQ-9 Depression Total Score: 2 04/30/20 24 10:41 AM EDT documented as of this encounter Care Teams Nut Grinder Relationship Specialty Start Date End Date Mackenzie Estrada MD [address] [place] [address] PCP - General Family Medicine 07/10/20 documented as of this encounter
--- OUTSIDE RECORDS SUMMARY | 2024-08-27 13:15 | XMS_ITS | Encounter Summary ---
Author Organization [employer] Address [address] [facility] [address] [place] [address] Care Team Providers Care Meat Puller Name Role Phone Mackenzie Estrada MD Primary Care Provider [phone] Encounter Details Date Type Department Care Team (Latest Contact Info) Description 08/14/2024 Travel Social History Tobacco Use Types Packs/Day Years [...] Description 09/11/2024 9:45 AM EST Office Visit [facility] MEDICINE [address] [place] [address] 09/24/2024 3:15 PM EST Office Visit [facility] MEDICINE [address] [place] [address] Mackenzie Estrada MD [address] [place] [address] 10/01/2024 10:00 AM EST Office Visit [facility] OPTOMETRY [address] [place] [address] Kailash, Libra, OD [address] [place] [address] documented as of this encounter Goals Goal [...] documented as of this encounter Care Teams Meat Puller Relationship Specialty Start Date End Date Mackenzie Estrada MD [address] [place] [address] PCP - General Family Medicine 07/10/20 documented as of this encounter
--- OUTSIDE RECORDS SUMMARY | 2024-08-27 13:15 | XMS_ITS | Encounter Summary ---
Author Organization [employer] Address [address] [facility] 7t [place] [address] Care Team Providers Care Color Receiver Name Role Phone Mackenzie Estrada MD Primary Care Provider [phone] Encounter Details Date Type Department Care Team (Late Contact Info) Description 03/04/2023 Orders Only [facility] MEDICINE [address] [place] [phone] Kat Yo MD [address] [place], [place] [phone] Social History Tobacco Use Types Packs/Day Years [...] Encounters Date Type Department Care Team (Late Contact Info) Description 09/11/2024 9:45 AM EST Office Visit [facility] MEDICINE [address] [place] [phone] 09/24/2024 3:15 PM EST Office Visit [facility] MEDICINE [address] [place] [address] [phone] Mackenzie Estrada MD [address] [place] [address] 10/01/2024 10:00 AM EST Office Visit [facility] OPTOMETRY [address] [place], [place] [phone] Libra Linder, OD [address] [place], [place] [phone] documented as of this encounter Visit Diagnoses Not on filedocumented in this encounter Care Teams Color Receiver Relationship Specialty Start Date End Date Mackenzie Estrada MD [address] [place], [place] [phone] PCP - General Family Medicine 07/10/20 documented as of this encounter
--- OUTSIDE RECORDS SUMMARY | 2024-08-27 13:16 | XMS_ITS | Encounter Summary ---
Author Organization [facility] Address [address] [place] [address] 7t [place] [address] Care Team Providers Care Pillowcase Folder Name Role Phone Mackenzie Estrada MD Primary Care Provider [phone] Reason for Visit * Reason Comments Med Refill Encounter Details Date Type Department [facility] Description 08/25/2022 Refill [facility] MEDICINE [address] [place] [address] [phone] Mackenzie Estrada MD [address] [place], [place] [phone] Pain in both hands Social History Tobacco [...] suspected to have Coronavirus/COVID-19? No / Unsure 08/12/2022 10:05 AM EST documented as of this encounter Plan of Treatment Upcoming Encounters Date Type Department [facility] Description 09/11/2024 9:45 AM EST Office Visit [facility] MEDICINE [address] [place] [address] [phone] 09/24/2024 3:15 PM EST Office Visit [facility] MEDICINE [address] [place] [address] [phone] Mackenzie Estrada MD [address] [place], [place] [phone] 10/01/2024 10:00 AM EST Office Visit [facility] OPTOMETRY [address] [place], [place] [phone] Libra Linder, OD 230 [place], [place] [phone] documented as of this encounter Visit Diagnoses Diagnosis Pain in both hands documented in this encounter Care Teams Pillowcase Folder Relationship Specialty Start Date End Date Mackenzie Estrada MD [address] [place], [place] [phone] PCP - General Family Medicine 07/10/20 documented as of this encounter
--- OUTSIDE RECORDS SUMMARY | 2024-08-27 13:16 | XMS_ITS | Encounter Summary ---
Author Organization [employer] Address [address] 7t [place] [address] Care Team Providers Care Drift Miner Name Role Phone Mackenzie Estrada MD Primary Care Provider [phone] Encounter Details Date Type Department Care Team ([facility] st Contact Info) Description 05/21/2024 Telephone [facility] MEDICINE [address] [place], [place] [phone] Mackenzie Estrada MD [address] [place], [place] [phone] Social History Tobacco Use Types Packs/Day Years [...] Description 09/11/2024 9:45 AM EST Office Visit [facility] MEDICINE [address] [place] [address] 09/24/2024 3:15 PM EST Office Visit [facility] MEDICINE [address] [place] [address] Mackenzie Estrada MD [address] [place] [address] 10/01/2024 10:00 AM EST Office Visit [facility] OPTOMETRY [address] [place] [address] Libra Linder, OD [address] [place] [address] documented as of this encounter Goals Goal Patient Goal Type Associated Problems Recent Progress Patient-Stated? Author Quit using tobacco (cigarettes, smokeless, etc) Tobacco Use No Corey Lin, KelechiD documented as of this encounter Visit Diagnoses Not on filedocumented in this encounter Additional Health Concerns Assessment Noted Time PHQ-9 Depression Total Score: 2 04/30/20 10:41 AM EDT documented as of this encounter Care Teams Drift Miner Relationship Specialty Start Date End Date Mackenzie Estrada MD [address] [place] [address] PCP - General Family Medicine 07/10/20 documented as of this encounter
--- OUTSIDE RECORDS SUMMARY | 2024-08-27 13:16 | XMS_ITS | Encounter Summary ---
Author Organization [employer] Address [address] 7t [place] [address] Care Team Providers Care High Lead Yarder Name Role Phone Mackenzie Estrada MD Primary Care Provider [phone] Encounter Details Date Type Department Care Team (Late st Contact Info) Description 12/13/2023 Orders Only [facility] MEDICINE [address] [place], [place] [phone] Mackenzie Estrada MD 230 [place], [place] [phone] Pain in both hands Social History Tobacco Use Types Packs/Day Years Used Date Smoking Tobacco: Every Day Cigarettes Passive Smoke Exposure: Never Smokeless Tobacco: Never Alcohol Use Standard Drinks/Week Comments Never 0 (1 standard drink = 0.6 oz pur e alcohol) PHQ-2 Answer Date Recorded Patient Health Questionnaire-2 Score 0 03/14/2023 Alcohol Answer Date Recorded Frequency of Alcohol Consumption Not on file 05/02/2023 Average Number of Drinks Not on file 023 Frequency of Binge Drinking Not on file 09/2022 Score 0 05/02/2023 Housing Stability Answer Date Recorded What is [...] from getting things needed for daily living? No 05/15/2023 Utilities Answer Date Recorded In the past 12 months, has t he electric, gas, oil or water company threatened to shut off services in your home? No 05/15/2023 Depression Answer Date Recorded Patient Health Questionnaire-2 Score 0 03/14/2023 Comments Unknown Sex and Gender Information Value [...] Description 09/11/2024 9:45 AM EST Office Visit [facility] MEDICINE [address] [place] [address] 09/24/2024 3:15 PM EST Office Visit [facility] MEDICINE [address] [place] [address] Mackenzie Estrada MD 230 [place] [address] 10/01/2024 10:00 AM EST Office Visit [facility] OPTOMETRY [address] [place] [address] Kailash, Libra, OD 230 [place] [address] documented as of this encounter Goals Goal Patient Goal Type Associated Problems Recent Progress Patient-Stated? Author Quit using tobacco (cigarettes, smokeless, etc) Tobacco Use No Corey Lin, PharmD documented as of this encounter Visit Diagnoses Diagnosis Pain in both hands documented in this encounter Care Teams High Lead Yarder Relationship Specialty Start Date End Date Mackenzie Estrada MD [address] [place] [address] PCP - General Family Medicine 07/10/20 documented as of this encounter
--- OUTSIDE RECORDS SUMMARY | 2024-08-27 13:16 | XMS_ITS | Encounter Summary ---
Author Organization [employer] Address [address] 7t [place] [address] Care Team Providers Care Senior Clerk Name Role Phone Mackenzie Estrada MD Primary Care Provider [phone] Reason for Visit * Reason Comments Med Refill Encounter Details Date Type Department Care Team ([facility] st Contact Info) Description 06/02/2023 Refill [facility] MEDICINE 230 [place], [place] [phone] Mackenzie Estrada MD 230 [place], [place] [phone] Pain in both hands Social History Tobacco [...] Description 09/11/2024 9:45 AM EST Office Visit [facility] MEDICINE [address] [place] [address] 09/24/2024 3:15 PM EST Office Visit [facility] MEDICINE [address] [place] [address] Mackenzie Estrada MD 230 [place] [address] 10/01/2024 10:00 AM EST Office Visit [facility] OPTOMETRY [address] [place] [address] Kailash, Libra, OD 230 [place] [address] documented as of this encounter Goals Goal Patient Goal Type Associated Problems Recent Progress Patient-Stated? Author Quit using tobacco (cigarettes, smokeless, etc) Tobacco Use No Corey Lin, PharmD documented as of this encounter Visit Diagnoses Diagnosis Pain in both hands documented in this encounter Care Teams Senior Clerk Relationship Specialty Start Date End Date Mackenzie Estrada MD [address] [place] [address] PCP - General Family Medicine 07/10/20 documented as of this encounter
--- OUTSIDE RECORDS SUMMARY | 2024-08-27 13:16 | XMS_ITS | Encounter Summary ---
Author Organization [employer] Address [address] 7t [place] [address] Care Team Providers Care Vamp Stitcher Name Role Phone Mackenzie Estrada MD Primary Care Provider [phone] Reason for Visit * Reason Comments Med Refill Encounter Details Date Type Department Care Team ([facility] Contact Info) Description 07/26/2023 Refill [facility] MEDICINE 230 [place], [place] [phone] Name, MD Mark 230 [place] [address] Pain in both hands Social History Tobacco [...] Description 09/11/2024 9:45 AM EST Office Visit [facility] MEDICINE 230 [place] [address] 09/24/2024 3:15 PM EST Office Visit [facility] MEDICINE [address] [place] [address] Mackenzie Estrada MD [address] [place] [address] 10/01/2024 10:00 AM EST Office Visit [facility] OPTOMETRY [address] [place] [address] Kailash, Libra, OD [address] [place] [address] documented as of this encounter Goals Goal Patient Goal Type Associated Problems Recent Progress Patient-Stated? Author Quit using tobacco (cigarettes, smokeless, etc) Tobacco Use No Corey Lin, PharmD documented as of this encounter Visit Diagnoses Diagnosis Pain in both hands documented in this encounter Care Teams Vamp Stitcher Relationship Specialty Start Date End Date Mackenzie Estrada MD [address] [place] [address] PCP - General Family Medicine 07/10/20 documented as of this encounter
--- OUTSIDE RECORDS SUMMARY | 2024-08-27 13:16 | XMS_ITS | Encounter Summary ---
Author Organization [employer] [facility] Address [address] [facility] 7t [place] [address] Care Team Providers Care Air Traffic Supervisor Name Role Phone Mackenzie Estrada MD Primary Care Provider [phone] Reason for Referral * Imaging (Routine) - Closed Specialty Diagnoses / Procedures Referred By Contac t Referred To Contact Radiology Diagnoses Abnormal ultrasound of pelvis Procedures MR Pelvis w/ and w/o Contrast Mackenzie Estrada MD 230 [place] [address] Phone: tel: fax: [address] Phone: tel: fax: Referral ID Status Reason Start Date Expiration Date Visits Re quested Visits Authorized [id number] Closed 10/31/2023 10/30/2024 1 1 Encounter Details Date Type Department Care Team (Late st Contact Info) Description 10/31/2023 Orders Only [facility] MEDICINE 230 [place], [place] [phone] Mackenzie Estrada MD [address] [place], [place] [phone] Abnormal ultrasound of pelvis (Primary Dx) Social History Tobacco Use Types Packs/Day Years [...] as of this encounter Miscellaneous Notes * Result Encounter Note - Mackenzie Estrada MD - 10/31/2023 8:50 AM EDT Please let patient know that her uterus looked normal of MRI, no sign of the problems with her uterine muscles that we were concerned about. 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 Thank you! documented in this encounter Plan of Treatment Upcoming Encounters Date Type Department Care Team (Late st Contact Info) Description 09/11/2024 9:45 AM EST Office Visit [facility] MEDICINE [address] [facility] [place] [facility] [place] [address] 09/24/2024 3:15 PM EST Office Visit [facility] MEDICINE [address] [place] [address] Mackenzie Estrada MD [address] [facility] [place] [address] 10/01/2024 10:00 AM EST Office Visit [facility] OPTOMETRY [address] [place] [address] Kailash, Libra, OD [address] [place] [address] documented as of this encounter Goals Goal Patient Goal Type Associated Problems Recent Progress Patient-Stated? Author Quit using tobacco (cigarettes, smokeless, etc) Tobacco Use No Corey Lin, KelechiD documented as of this encounter Procedures Procedure Name Priority Date/Time Associated Diagnosis Comments MR PELVIS W AND WO CONTRAST Routine 11/25/2023 3:05 PM EDT Abnormal ultrasound of pelvis documented in this encounter Results * MR Pelvis w/ and w/o Contrast (11/25/2023 3:05 PM EDT) Anatomical Region Laterality Modality Body, Pelvis Magnetic Resonan ce 11/25/2023 3:05 PM EDT Narrative 12/07/2023 9:11 AM EDT ? [facility] ?[address] ?[place] [address] ? Magnetic Resonance Report ? Signed ? Patient: Ovidio Lacy,Ginette ?MR ?? #: [id number] ? : 1975 ?Acct:[id number] ? Age/Sex: 48 / F ?ADM Date: 04/26/24 ? Loc: HO.MRI ? Attending Dr: Mackenzie Estrada MD ? Ordering Physician: Mackenzie Estrada ?? Date of Service: 11/25/23 ?? Procedure(s): MR pelvis wo/w con ?? Accession Number(s): [id number] ? cc: Mackenzie Estrada ? EXAMINATION: ?? MR PELVIS WITHOUT AND WITH CONTRAST ? CLINICAL INFORMATION: ?? 48-year-old female with history of abnormal menses. Heterogeneous ?? myometrial echotexture on ultrasound exam. ? COMPARISON: ?? Pelvic ultrasound from 10/20/2023. Pelvis MRI from 01/15/2014. CT ?? angiography from 04/21/2023. ? TECHNIQUE: ?? MR imaging of the pelvis is performed on a high-field magnet using ?? standard sequences without and with intravenous administration of 8.5 ?? mL Gadavist. ? FINDINGS: ? UTERUS AND CERVIX: The anteflexed, anteverted uterus measures 7.8 x 3.6 ?? x 4.3 cm (vgdktw-qk-mnqtfs x AP x transverse dimension). The junctional ?? zone of myometrium is normal. It has a thickness of 0.8 cm. No evidence ?? of adenomyosis. No evidence of uterine leiomyomas. The cervix and ?? vaginal canal are normal. The endometrium is normal and measures 0.2 cm ?? AP dimension. No focal endometrial lesion. ? ADNEXA: The right ovary is 1.9 x 1.3 x 1.5 cm and left ovary is 0.3 x ?? 1.4 x 2.2 cm. No evidence of hemorrhagic ovarian cyst or endometriosis. ? FREE FLUID: None. ? LYMPHOVASCULAR: Note that the iliac arteries are not well evaluated on ?? this examination. 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 The iliac veins are normal. No ?? pathologic sized iliac or inguinal lymph nodes. ? URINARY BLADDER: Urinary bladder and urethra are normal. ? GASTROINTESTINAL: No dilated bowel loops. The sigmoid colon and rectum ?? are unremarkable. ? ABDOMINAL WALL: Large body habitus. Small fat-containing left inguinal ?? hernia is noted. ? MUSCULOSKELETAL: No suspicious osseous lesions. There appears to be ?? very small central disc protrusion at L4-L5. Moderate loss of disc ?? height and disc bulge at L5-S1 with traction osteophyte formation and ?? type 2 Modic signal changes at endplates. There is a focal zone of ?? osteonecrosis in the anterosuperior left femoral head without articular ?? surface collapse. There is an area of edema-like signal change within ?? the distal left iliopsoas without intramuscular hematoma or mass, ?? consistent with mild muscle strain. ? MR/MR pelvis wo/w con ?? IMPRESSION: ?? * ??Normal uterus and ovaries. No evidence of uterine adenomyosis or ?? endometriosis. ?? * ??Small fat-containing left inguinal hernia. ?? * ??There is stage 2 osteonecrosis of the anterosuperior left femoral ?? head. ?? * ??Mild edema-like signal change within the distal left iliopsoas is ?? consistent with mild muscle strain. ? Dictated By: ?Scott Haskins MD ? Signed By: ?<Electronically signed by Scott Haskins MD in OV> ? 05/03/24 907 ? DD/ 1505 ? TD/TT: ? Die Designer: PD ? Procedure Note Lorin, Image - 12/07/2023 [place] [id number] Magnetic Resonance Report Signed Patient: Ginette Arceo #: [id number] : 1975Acct:[id number] Age/Sex: 48 / FADM Date: 11/25/23 Loc: .MRI Attending Dr: Mackenzie Estrada MD Ordering Physician: Mackenzie Estrada Date of Service: 11/25/23 Procedure(s): MR pelvis wo/w con Accession Number(s): [id number] cc: Mackenzie Estrada EXAMINATION: MR PELVIS WITHOUT AND WITH CONTRAST CLINICAL INFORMATION: 48-year-old female with history of abnormal menses. Heterogeneous myometrial echotexture on ultrasound exam. COMPARISON: Pelvic ultrasound from 10/20/2023. Pelvis MRI from 01/15/2014. CT angiography from 04/21/2023. TECHNIQUE: MR imaging of the pelvis is performed on a high-field magnet using standard sequences without and with intravenous administration of 8.5 mL Gadavist. FINDINGS: UTERUS AND CERVIX: The anteflexed, anteverted uterus measures 7.8 x 3.6 x 4.3 cm (ftrhvj-bw-expojj x AP x transverse dimension). The junctional zone of myometrium is normal. It has a thickness of 0.8 cm. No evidence of adenomyosis. No evidence of uterine leiomyomas. The cervix and vaginal canal are normal. The endometrium is normal and measures 0.2 cm AP dimension. No focal endometrial lesion. ADNEXA: The right ovary is 1.9 x 1.3 x 1.5 cm and left ovary is 0.3 x 1.4 x 2.2 cm. No evidence of hemorrhagic ovarian cyst or endometriosis. FREE FLUID: None. LYMPHOVASCULAR: Note that the iliac arteries are not well evaluated on this examination. 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 The iliac veins are normal. No pathologic sized iliac or inguinal lymph nodes. URINARY BLADDER: Urinary bladder and urethra are normal. GASTROINTESTINAL: No dilated bowel loops. The sigmoid colon and rectum are unremarkable. ABDOMINAL WALL: Large body habitus. Small fat-containing left inguinal hernia is noted. MUSCULOSKELETAL: No suspicious osseous lesions. There appears to be very small central disc protrusion at L4-L5. Moderate loss of disc height and disc bulge at L5-S1 with traction osteophyte formation and type 2 Modic signal changes at endplates. There is a focal zone of osteonecrosis in the anterosuperior left femoral head without articular surface collapse. There is an area of edema-like signal change within the distal left iliopsoas without intramuscular hematoma or mass, consistent with mild muscle strain. MR/MR pelvis wo/w con IMPRESSION: * Normal uterus and ovaries. No evidence of uterine adenomyosis or endometriosis. * Small fat-containing left inguinal hernia. * There is stage 2 osteonecrosis of the anterosuperior left femoral head. * Mild edema-like signal change within the distal left iliopsoas is consistent with mild muscle strain. Dictated By: Scott Haskins MD Signed By: <Electronically signed by Scott Haskins MD in OV> 12/07/23 0907 DD/ 1505 TD/TT: Die Designer: PD Mackenzie Estrada MD IMG MRI PROCEDURES Final Resul t documented in this encounter Visit Diagnoses Diagnosis Abnormal ultrasound of pelvis- Primary documented in this encounter Care Teams Air Traffic Supervisor Relationship Specialty Start Date End Date Mackenzie Estrada MD [address] [place] [address] PCP - General Family Medicine 07/10/20 documented as of this encounter
--- OUTSIDE RECORDS SUMMARY | 2024-08-27 13:16 | XMS_ITS | Encounter Summary ---
Author Organization [employer] Address [address] 7t [place] [address] Care Team Providers Care Director Sales And Trade Marketing Name Role Phone Mackenzie Estrada MD Primary Care Provider [phone] Reason for Visit * Reason Comments Med Refill Encounter Details Date Type Department Care Team ([facility] st Contact Info) Description 06/01/2023 Refill [facility] MEDICINE 230 [place], [place] [phone] Mackenzie Estrada MD 230 [place], [place] [phone] Pain in both hands Social History Tobacco [...] Description 09/11/2024 9:45 AM EST Office Visit [facility] MEDICINE [address] [place] [address] 09/24/2024 3:15 PM EST Office Visit [facility] MEDICINE [address] [place] [address] Mackenzie Estrada MD 230 [place] [address] 10/01/2024 10:00 AM EST Office Visit [facility] OPTOMETRY [address] [place] [address] Kailash, Libra, OD 230 [place] [address] documented as of this encounter Goals Goal Patient Goal Type Associated Problems Recent Progress Patient-Stated? Author Quit using tobacco (cigarettes, smokeless, etc) Tobacco Use No Corey Lin, PharmD documented as of this encounter Visit Diagnoses Diagnosis Pain in both hands documented in this encounter Care Teams Director Sales And Trade Marketing Relationship Specialty Start Date End Date Mackenzie Estrada MD [address] [place] [address] PCP - General Family Medicine 07/10/20 documented as of this encounter
--- OUTSIDE RECORDS SUMMARY | 2024-08-27 13:16 | XMS_ITS | Encounter Summary ---
Author Organization [employer] Address [address] 7t [place] [address] Care Team Providers Care Building Inspection Engineer Name Role Phone Mackenzie Estrada MD Primary Care Provider [phone] Reason for Visit * Reason Comments Med Refill Encounter Details Date Type Department Care Team ([facility] st Contact Info) Description 01/12/2024 Refill [facility] MEDICINE 230 [place], [place] [phone] Mackenzie Estrada MD 230 [place], [place] [phone] Rheumatoid arthritis involving multiple sites with positive rheumatoid factor ([facility]) Social History Tobacco Use Types Packs/Day Years [...] Description 09/11/2024 9:45 AM EST Office Visit [facility] MEDICINE [address] [place] [address] 09/24/2024 3:15 PM EST Office Visit [facility] MEDICINE [address] [place] [address] Mackenzie Estrada MD [address] [place] [address] 10/01/2024 10:00 AM EST Office Visit [facility] OPTOMETRY [address] [place] [address] Libra Linder, OD 230 [place] [address] documented as of this encounter Goals Goal Patient Goal Type Associated Problems Recent Progress Patient-Stated? Author Quit using tobacco (cigarettes, smokeless, etc) Tobacco Use No Corey Lin, KelechiD documented as of this encounter Visit Diagnoses Diagnosis Rheumatoid arthritis involving multiple sites with positive rheumatoid factor ([facility]) documented in this encounter Care Teams Building Inspection Engineer Relationship Specialty Start Date End Date Mackenzie Estrada MD [address] [place] [address] PCP - General Family Medicine 07/10/20 documented as of this encounter
--- OUTSIDE RECORDS SUMMARY | 2024-08-27 13:16 | XMS_ITS | Encounter Summary ---
Author Organization [employer] Address [address] 7t [place] [address] Care Team Providers Care Management And Budget Analyst Name Role Phone Mackenzie Estrada MD Primary Care Provider Reason for Visit * Reason Onset Date Comments Hospital Follow-up 02/24/2024 Encounter Details Date Type Department Care Team ([facility] st Contact Info) Description 02/24/2024 Telephone [facility] MEDICINE 230 [place], [place] [phone] Mackenzie Estrada MD [address] [place] [address] Hospital Follow-up Social History Tobacco Use Types Packs/Day Years [...] * Telephone Encounter - Rigo Martinez - 02/24/2024 9:05 AM EDT Tc from pt requesting a HDF appt. Hospital: [facility] Date of admission: 02/19 Discharge date: 02/23 Diagnosed: Rectal Bleeding Luxembourger Speaker documented in this encounter Plan of Treatment Upcoming Encounters Date Type Department Care Team (Late st Contact Info) Description 09/11/2024 9:45 AM EST Office Visit [facility] MEDICINE [address] [place] [address] 09/24/2024 3:15 PM EST Office Visit [facility] MEDICINE [address] [place] [address] Mackenzie Estrada MD [address] [place] [address] 10/01/2024 10:00 AM EST Office Visit [facility] OPTOMETRY [address] [place] [address] Libra Linder, OD 230 [place] [address] documented as of this encounter Goals Goal Patient Goal Type Associated Problems Recent Progress Patient-Stated? Author Quit using tobacco (cigarettes, smokeless, etc) Tobacco Use No Corey Lin, KelechiD documented as of this encounter Visit Diagnoses Not on filedocumented in this encounter Care Teams Management And Budget Analyst Relationship Specialty Start Date End Date Mackenzie Estrada MD [address] [place] [address] PCP - General Family Medicine 07/10/20 documented as of this encounter
--- OUTSIDE RECORDS SUMMARY | 2024-08-27 13:16 | XMS_ITS | Encounter Summary ---
Author Organization [employer] Address [address] [facility] [address] 7[address] [place] [address] Care Team Providers Care Instrument Repair Supervisor Name Role Phone Mackenzie Estrada MD Primary Care Provider [phone] Reason for Visit * Reason Comments Med Refill Encounter Details Date Type Department Care Team ([facility] st Contact Info) Description 08/26/[address] [facility] [address] [place] [address] Sisi Kennedy FNP [address] [place], [place] [phone] Viral upper respiratory tract infection Social History Tobacco Use Types Packs/Day Years [...] Description 09/11/2024 9:45 AM EST Office Visit [facility] 230 [place] [address] 09/24/2024 3:15 PM EST Office Visit [facility] 230 [place] [address] Mackenzie Estrada MD 230 [place] [address] 10/01/2024 10:00 AM EST Office Visit [facility] [address] [place] [address] Kailash, Libra, OD 230 [place] [address] documented as of this encounter Goals Goal Patient Goal Type Associated Problems Recent Progress Patient-Stated? Author Quit using tobacco (cigarettes, smokeless, etc) Tobacco Use No Corey Lin, KelechiD documented as of this encounter Visit Diagnoses Diagnosis Viral upper respiratory tract infection Acute upper respiratory infections of unspecified site documented in this encounter Care Teams Instrument Repair Supervisor Relationship Specialty Start Date End Date Mackenzie Estrada MD [address] [place] [address] PCP - General Family Medicine 07/10/20 documented as of this encounter
--- OUTSIDE RECORDS SUMMARY | 2024-08-27 13:16 | XMS_ITS | Encounter Summary ---
Author Organization [employer] Address [address] [facility] [address] 7t [place] [address] Care Team Providers Care Waxer Operator Name Role Phone Mackenzie Estrada MD Primary Care Provider [phone] Reason for Visit * Reason Comments Med Refill Encounter Details Date Type Department Care Team (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 [...] the past 12 months, has t he [employer] gas, oil or water company threatened to [...] 9:45 AM EST Office Visit [facility] 230 [place] [address] 09/24/2024 3:15 PM EST Office Visit [facility] [address] [place] [address] Mackenzie Estrada MD 230 [place] [address] 10/01/2024 10:00 AM EST Office Visit [facility] OPTOMETRY [address] [place] [address] Libra Linder, OD 230 [place] [address] documented as of this encounter Goals Goal [...] documented as of this encounter Care Teams Waxer Operator Relationship Specialty Start Date End Date Mackenzie Estrada MD 230 [place] [address] PCP - General Family Medicine 07/10/20 documented as of this encounter
--- OUTSIDE RECORDS SUMMARY | 2024-08-27 13:16 | XMS_ITS | Encounter Summary ---
Author Organization [employer] Address [address] [facility] [address] 7t [place] [address] Care Team Providers Care Apprentice Instrument Technician Name Role Phone Mackenzie Estrada MD Primary Care Provider [phone] Encounter Details Date Type Department Care Team (Late st Contact Info) Description 05/10/2024 Orders Only [facility] [place] [facility] 230 [place], [place] [phone] Mackenzie Estrada MD 230 [place], [place] [phone] Social History Tobacco Use Types Packs/Day Years [...] Description 09/11/2024 9:45 AM EST Office Visit [facility] 230 [place] [address] 09/24/2024 3:15 PM EST Office Visit [facility] 230 [place] [address] Mackenzie Estrada MD 230 [place] [address] 10/01/2024 10:00 AM EST Office Visit [facility] OPTOMETRY 267 [place] [address] Libra Linder, OD 230 [place] [address] documented as of this encounter Goals Goal Patient Goal Type Associated Problems Recent Progress Patient-Stated? Author Quit using tobacco (cigarettes, smokeless, etc) Tobacco Use No Corey Lin, KelechiD documented as of this encounter Visit Diagnoses Not on filedocumented in this encounter Additional Health Concerns Assessment Noted Time PHQ-9 Depression Total Score: 2 04/30/20 10:41 AM EDT documented as of this encounter Care Teams Apprentice Instrument Technician Relationship Specialty Start Date End Date Mackenzie Estrada MD 230 [place] [address] PCP - General Family Medicine 07/10/20 documented as of this encounter
--- OUTSIDE RECORDS SUMMARY | 2024-08-27 13:16 | XMS_ITS | Encounter Summary ---
Author Organization [employer] Address [address] [facility] [address] 7t [place] [address] Care Team Providers Care Street Photographer Name Role Phone Mackenzie Estrada MD Primary Care Provider [phone] Reason for Visit * Reason Comments Med Refill Encounter Details Date Type Department Care Team ([facility] st Contact Info) Description 11/18/2023 Refill [facility] 230 [place], [place] [phone] Mackenzie Estrada MD 230 [place], [place] [phone] Pain in both hands Social History Tobacco [...] Description 09/11/2024 9:45 AM EST Office Visit [facility] [address] [place] [address] 09/24/2024 3:15 PM EST Office Visit [facility] [address] [place] [address] Mackenzie Estrada MD 230 [place] [address] 10/01/2024 10:00 AM EST Office Visit [facility] OPTOMETRY 267 [place] [address] Kailash, Libra, OD 230 [place] [address] documented as of this encounter Goals Goal Patient Goal Type Associated Problems Recent Progress Patient-Stated? Author Quit using tobacco (cigarettes, smokeless, etc) Tobacco Use No Corey Lin, PharmD documented as of this encounter Visit Diagnoses Diagnosis Pain in both hands documented in this encounter Care Teams Street Photographer Relationship Specialty Start Date End Date Mackenzie Estrada MD [address] [place] [address] PCP - General Family Medicine 07/10/20 documented as of this encounter
--- OUTSIDE RECORDS SUMMARY | 2024-08-27 13:16 | XMS_ITS | Encounter Summary ---
Author Organization [employer] Address 75 [facility] 7t [place] [address] Care Team Providers Care Limousine Rental Clerk Name Role Phone Mackenzie Estrada MD Primary Care Provider [phone] Reason for Visit * Reason Comments Med Refill Encounter Details Date Type Department Care Team ([facility] st Contact Info) Description 02/08/2023 Refill [facility] 230 [place], [place] [phone] Mackenzie Estrada MD 230 [place] [address] Pain in both hands Social History Tobacco [...] suspected to have Coronavirus/COVID-19? No / Unsure 01/27/2023 12:43 PM EDT documented as of this encounter Miscellaneous Notes * Telephone Encounter - Kaylene aSmano RN - 02/08/2023 10:56 AM EDT Duplicate request * Telephone Encounter - Edith Cruz - 02/08/2023 10:42 AM EDT Tc from patient requesting a med refill on medication oxycodone [address] Estrada documented in this encounter Plan of Treatment Upcoming Encounters Date Type Department Care Team (Late st Contact Info) Description 09/11/2024 9:45 AM EST Office Visit [facility] 230 [place] [address] 09/24/2024 3:15 PM EST Office Visit [facility] 230 [place] [address] Mackenzie Estrada MD 230 [place] [address] 10/01/2024 10:00 AM EST Office Visit [facility] OPTOMETRY [address] [place] [address] Libra Linder, OD 230 [place] [address] documented as of this encounter Visit Diagnoses Diagnosis Pain in both hands documented in this encounter Care Teams Limousine Rental Clerk Relationship Specialty Start Date End Date Mackenzie Estrada MD 230 [place] [address] PCP - General Family Medicine 07/10/20 documented as of this encounter
--- OUTSIDE RECORDS SUMMARY | 2024-08-27 13:16 | XMS_ITS | Encounter Summary ---
Author Organization [employer] Address [address] [facility] [address] 7t [place] [address] Care Team Providers Care Cognos Consultant Name Role Phone Mackenzie Estrada MD Primary Care Provider [phone] Reason for Visit * Reason Onset Date Comments Error 08/16/2023 Encounter Details Date Type Department Care Team ([facility] Contact Info) Description 08/16/2023 Telephone [facility] 230 [place], [place] [phone] Mackenzie Estrada MD 230 [place], [place] [phone] Error Social History Tobacco Use Types Packs/Day Years [...] 09/11/2024 9:45 AM EST Office Visit [facility] 230 [place] [address] 09/24/2024 3:15 PM EST Office Visit [facility] [address] [place] [address] Mackenzie Estrada MD 230 [place] [address] 10/01/2024 10:00 AM EST Office Visit [facility] OPTOMETRY 267 [place] [address] Kailash, Libra, OD 230 [place] [address] documented as of this encounter Goals Goal Patient Goal Type Associated Problems Recent Progress Patient-Stated? Author Quit using tobacco (cigarettes, smokeless, etc) Tobacco Use No Corey Lin, PharmD documented as of this encounter Visit Diagnoses Not on filedocumented in this encounter Care Teams Cognos Consultant Relationship Specialty Start Date End Date Mackenzie Estrada MD [address] [place] [address] PCP - General Family Medicine 07/10/20 documented as of this encounter
--- OUTSIDE RECORDS SUMMARY | 2024-08-27 13:16 | XMS_ITS | Encounter Summary ---
Author Organization [employer] Address [address] [facility] [address] 7t [place] [address] Care Team Providers Care Manager Mutual Fund Name Role Phone Mackenzie Estrada MD Primary Care Provider [phone] Encounter Details Date Type Department Care Team (Late st Contact Info) Description 06/01/2023 Orders Only [facility] 230 [place], [place] [phone] Mackenzie Estrada MD 230 [place], [place] [phone] Encounter for smoking cessation counseling (Primary Dx) Social History Tobacco Use Types [...] Description 09/11/2024 9:45 AM EST Office Visit [facility] 230 [place] [address] 09/24/2024 3:15 PM EST Office Visit [facility] [address] [place] [address] Mackenzie Estrada MD 230 [place] [address] 10/01/2024 10:00 AM EST Office Visit [facility] OPTOMETRY 267 [place] [address] Kailash, Libra, OD 230 [place] [address] documented as of this encounter Goals Goal Patient Goal Type Associated Problems Recent Progress Patient-Stated? Author Quit using tobacco (cigarettes, smokeless, etc) Tobacco Use No Corey Lin, PharmFrancia documented as of this encounter Visit Diagnoses Diagnosis Encounter for smoking cessation counseling- Primary documented in this encounter Care Teams Manager Mutual Fund Relationship Specialty Start Date End Date Mackenzie Estrada MD [address] [place] [address] PCP - General Family Medicine 07/10/20 documented as of this encounter
--- OUTSIDE RECORDS SUMMARY | 2024-08-27 13:16 | XMS_ITS | Encounter Summary ---
Author Organization [employer] Address [address] [facility] [address] 7t [place] [address] Care Team Providers Care General Manager Food Name Role Phone Mackenzie Estrada MD Primary Care Provider [phone] Encounter Details Date Type Department Care Team (Late st Contact Info) Description 06/03/2023 Orders Only [facility] MED[facility] 230 [place], [place] [phone] Mackenzie Estrada MD 230 [place], [place] [phone] Pain in both hands Social History Tobacco [...] Description 09/11/2024 9:45 AM EST Office Visit [facility] 230 [place] [address] 09/24/2024 3:15 PM EST Office Visit [facility] 230 [place] [address] Mackenzie Estrada MD 230 [place] [address] 10/01/2024 10:00 AM EST Office Visit [facility] OPTOMETRY [address] [place] [address] Kailash, Libra, OD 230 [place] [address] documented as of this encounter Goals Goal Patient Goal Type Associated Problems Recent Progress Patient-Stated? Author Quit using tobacco (cigarettes, smokeless, etc) Tobacco Use No Corey Lin, Bailey documented as of this encounter Procedures Procedure Name Priority Date/Time Associated Diagnosis Comments XR CHEST 2 VIEWS Routine 06/25/2023 12:1 5 PM EST URINALYSIS, COMPLETE, WITH REFLEX TO CULTURE Routine 06/03/2023 4:49 PM EDT Pain in both hands URINALYSIS WITH REFLEX MICROSCOPIC Routine 06/03/2023 4:49 PM EDT Pain in both hands INFLUENZA A B2 ID NOW ([place]) Routine 06/03/2023 4:34 PM EDT Pain in both hands COVID-19 ID NOW ([place]) Routine 06/03/2023 4:34 PM EDT Pain in both hands documented in this encounter Results * XR Chest 2 Views (06/25/2023 12:15 PM EST) Anatomical Region Laterality Modality Chest Radiographic Rin ging 06/25/2023 12:1 5 PM EST Narrative 06/03/2023 5:47 PM EDT ? [facility] ?[address] ?[place] [address] ?XRay Report ? Signed ? Patient: Ovidio Lacy,Ginette ?MR ?? #: [id number] ? : 1975 ?Acct:[id number] ? Age/Sex: 47 / F ?ADM Date: 06/25/23 ? Loc: HO.ED ? Attending Dr: ? Ordering Physician: Treasure Clemons ?? Date of Service: 06/25/23 ?? Procedure(s): XR chest 2V ?? Accession Number(s): [id number] ? cc: Mackenzie Estrada; Treasure Clemons ? EXAMINATION: ?? XR CHEST ? CLINICAL INFORMATION: ?? Chest pain ? COMPARISON: ?? None available. ? TECHNIQUE: ?? 2 views of the chest were obtained. ? FINDINGS: ?? No significant abnormality is noted involving the heart, lungs, ?? mediastinum, bony thorax or soft tissues. ? XR/XR chest 2V ?? IMPRESSION: ?? Unremarkable chest examination. ? Dictated By: ?Rosio,Jamie S MD ? Signed By: ?<Electronically signed by Jamie S Rosio, MD in OV> ?06/25/23 1230 ? DD/ 1215 ? TD/TT: ? Heel Brusher: MSM ? Procedure Note Lorin, Image - 06/25/2023 [facility] [address] [place] [address] XRay Report Signed Patient: Ginette ArceoMR #: [id number] : 1975Acct:[id number] Age/Sex: 47 / FADM Date: 06/25/23 Loc: HO.ED Attending Dr: Ordering Physician: Treasure Clemons Date of Service: 06/25/23 Procedure(s): XR chest 2V Accession Number(s): [id number] cc: Mackenzie Estrada; Treasure Clemons EXAMINATION: XR CHEST CLINICAL INFORMATION: Chest pain COMPARISON: None available. TECHNIQUE: 2 views of the chest were obtained. FINDINGS: No significant abnormality is noted involving the heart, lungs, mediastinum, bony thorax or soft tissues. XR/XR chest 2V IMPRESSION: Unremarkable chest examination. Dictated By: Jamie Avelar MD Signed By: <Electronically signed by Jamie Avelar MD in OV> 06/25/23 1230 DD/ 1215 TD/TT: Heel Brusher: MAGGIE [facility] External Provider IMG XR PROCEDURES Edited Result - Final * (ABNORMAL) Urinalysis, Complete, with Reflex to Culture (06/03/2023 4:49 PM EDT) Color Urine Yellow [facility] Appearance Urine Clear [facility] PH 5.5 5.0 - 9.0 [facility] Glucose Urine UA Negative Negative mg/dL [facility] Urine Blood Large (3+)(A) Negative [facility] Specific Edelstein - Urine 1.025 1.005 - 1.025 [facility] Urine Protein Negative Neg-Trace mg/dL [facility] Urine Ketones Negative Negative mg/dL [facility] Nitrite Urine Negative Negative [facility] Leukocyte Esterase Urine Negative Negative [facility] RBC Urine >20(A) 0 - 2 /HPF [facility] Urine WBC 0-5 0 - 5 /HPF [facility] Urine Squamous Epithelial Cell 11-20 0 - 2 /HPF [facility] Urine Bacteria 1+ None Seen [facility] Hyaline Casts, Urine 0-2 0 - 2 /LPF [facility] 06/03/2023 4:49 PM EDT 06/03/2023 4:52 PM EDT [facility] - 06/03/2023 5:00 PM EDT Urine, Clean Catch us Generic External Data Provider LAB URINE ORDERAB LES Final Result Performing Organization Address [facility]/ZIP Co de Phone Number [facility] [address] [place] [address] [phone] * (ABNORMAL) Urinalysis w/reflex microscopic (06/03/2023 4:49 PM EDT) Color Urine Yellow [facility] Appearance Urine Clear [facility] PH 5.5 5.0 - 9.0 [facility] Glucose Urine UA Negative Negative mg/dL [facility] Urine Blood Large (3+)(A) Negative [facility] Specific Edelstein - Urine 1.025 1.005 - 1.025 [facility] Urine Protein Negative Neg-Trace mg/dL [facility] Urine Ketones Negative Negative mg/dL [facility] Nitrite Urine Negative Negative [facility] Leukocyte Esterase Urine Negative Negative [facility] 06/03/2023 4:49 PM EDT 06/03/2023 4:52 PM EDT [facility] - 06/03/2023 4:57 PM EDT Urine, Clean Catch us Generic External Data Provider LAB URINE ORDERAB LES Final Result Performing Organization Address [facility]/ZIP Co de Phone Number [facility] [address] [place] [address] [phone] * Influenza A B2 ID NOW ([place]) (06/03/2023 4:34 PM EDT) IDNOW SERIAL# [id number] [facility] Influenza A Negative Negative [facility] Influenza B2 Negative Negative [facility] Influenza A B2 Note See Note [facility] Comment:The [place]ona ID NOW In fluenza A B2 test is used for thequalitative detection of influenza A and B from patientswith signs and symptoms of respiratory infection.Negative results do not preclude influenza virus infectionand should not be used as the sole basis for diagnosis,treatment or other patient management decisions.There is a risk of false negative results due to thepresence of variants in the viral targets of the assay, lowlevels of virus in the specimen and co- infection withRespiratory Syncytial Virus. 06/03/2023 4:34 PM EDT 06/03/2023 4:40 PM EDT us Generic External Data Provider LAB MICROBIOLOGY - GENERAL ORDERABLES Final Result [facility] [address] [place] [address] [phone] * COVID-19 ID NOW ([place]) (06/03/2023 4:34 PM EDT) IDNOW SERIAL# [id number] [facility] COVID-19 TEST Negative Negative [facility] COVID-19 NOTE See Note [facility] Comment: Results are for the identification of SARS-CoV2 RNA. TheSARS-CoV2 RNA is generally detectable in respiratory samplesduring the acute phase of infection. Positive results areindicative of the presence of SARS-CoV-2 RNA; clinicalcorrelation with patient history and other diagnosticinformation is necessary to determine patient infectionstatus. Positive results do not rule out bacterial infectionor co- infection with other viruses.Testing facilities within the [facility] and itsterritories are required to report all positive results tothe appropriate public health authorities.Negative results should be treated as presumptive and, ifinconsistent with clinical signs and symptoms or necessaryfor patient management, should be tested with differentauthorized or cleared molecular tests. Negative results donot preclude SARS-CoV2 RNA infection and should not be usedas the sole basis for patient management decisions. Negativeresults should be considered in the context of a patient'srecent exposures, history and the presence of clinical signsand symptoms consistent with COVID-19.This test has been authorized by the FDA under an EmergencyUse Authorization (EUA) for use by authorized laboratories.Testing performed on the [employer] ID NOW utilizing NAAT. 06/03/2023 4:34 PM EDT 06/03/2023 4:40 PM EDT us Generic External Data Provider LAB MOLECULAR ARNAV GNOSTICS ORDERABLES Final Result [facility] [address] [place] [phone] documented in this encounter Visit Diagnoses Diagnosis Pain in both hands documented in this encounter Care Teams General Manager Food Relationship Specialty Start Date End Date Mackenzie Estrada MD [address] [place] [phone] PCP - General Family Medicine 07/10/20 documented as of this encounter
--- OUTSIDE RECORDS SUMMARY | 2024-08-27 13:16 | XMS_ITS | Encounter Summary ---
Author Organization [employer] Address [address] [facility] [address] 7t [place] [address] Care Team Providers Care Compressed Gas Plant Worker Name Role Phone Mackenzie Estrada MD Primary Care Provider [phone] Encounter Details Date Type Department Care Team (Late st Contact Info) Description 10/03/2023 Orders Only [facility] MEDICINE 230 [place], [place] [phone] Mackenzie Estrada MD 230 [place], [place] [phone] Bacterial vaginosis (Primary Dx) Social History Tobacco Use Types [...] 09/11/2024 9:45 AM EST Office Visit [facility] [address] [place] [address] 09/24/2024 3:15 PM EST Office Visit [facility] [address] [place] [address] Mackenzie Estrada MD 230 [place] [address] 10/01/2024 10:00 AM EST Office Visit [facility] OPTOMETRY [address] [place] [address] Kailash, Libra, OD [address] [place] [address] documented as of this encounter Goals Goal Patient Goal Type Associated Problems Recent Progress Patient-Stated? Author Quit using tobacco (cigarettes, smokeless, etc) Tobacco Use No Corey Lin, PharmD documented as of this encounter Visit Diagnoses Diagnosis Bacterial vaginosis- Primary Unspecified vaginitis and vulvovaginitis documented in this encounter Care Teams Compressed Gas Plant Worker Relationship Specialty Start Date End Date Mackenzie Estrada MD [address] [place] [phone] PCP - General Family Medicine 07/10/20 documented as of this encounter
--- OUTSIDE RECORDS SUMMARY | 2024-08-27 13:16 | XMS_ITS | Encounter Summary ---
Author Organization [employer] Address [address] [facility] [address] 7[address] [place] [address] Care Team Providers Care Mold Design Engineer Name Role Phone Mackenzie Estrada MD Primary Care Provider Encounter Details Date Type Department Care Team (Late st Contact Info) Description 04/20/2024 Telephone [facility] 230 [place], [place] [phone] Mackenzie Estrada MD 230 [place], [place] [phone] Social History Tobacco Use Types Packs/Day Years [...] Office Visit [facility] [address] [place] [address] 09/24/2024 3:15 PM EST Office Visit [facility] [address] [place] [address] Mackenzie Estrada MD 230 [place] [address] 10/01/2024 10:00 AM EST Office Visit [facility] OPTOMETRY [address] [place] [address] Kailash, Libra, OD 230 [place] [address] documented as of this encounter Goals Goal Patient Goal Type Associated Problems Recent Progress Patient-Stated? Author Quit using tobacco (cigarettes, smokeless, etc) Tobacco Use No Corey Lin, Bailey documented as of this encounter Visit Diagnoses Not on filedocumented in this encounter Care Teams Mold Design Engineer Relationship Specialty Start Date End Date Mackenzie Estrada MD [address] [place] [address] PCP - General Family Medicine 07/10/20 documented as of this encounter
--- OUTSIDE RECORDS SUMMARY | 2024-08-27 13:16 | XMS_ITS | Encounter Summary ---
Author Organization [email or web address] Address [address] [place] [address] Care Team Providers Care Auto Washer Name Role Phone Mackenzie Estrada MD Primary Care Provider [phone] Reason for Visit * Reason Comments Med Refill Encounter Details Date Type Department Care Team (Late Contact Info) Description 09/22/2022 Refill [facility] [address] [place], [place] [phone] Sarika Palacios ANP [address], [place] [phone] Tinea pedis of both feet Social History Tobacco Use Types Packs/Day Years [...] suspected to have Coronavirus/COVID-19? No / Unsure 09/24/2022 8:36 AM EST documented as of this encounter Plan of Treatment Upcoming Encounters Date Type Department Care Team (Late Contact Info) Description 09/11/2024 9:45 AM EST Office Visit [facility] [address] [place] [phone] 09/24/2024 3:15 PM EST Office Visit [facility] [address] [place] [phone] Mackenzie Estrada MD [address] [place] [address] 10/01/2024 10:00 AM EST Office Visit [facility] OPT[facility] [address], [place] [phone] KailashLibra damian, OD [address] [place] [address] documented as of this encounter Visit Diagnoses Diagnosis Tinea pedis of both feet documented in this encounter Care Teams Auto Washer Relationship Specialty Start Date End Date Mackenzie Estrada MD [address], [place] [phone] PCP - General Family Medicine 07/10/20 documented as of this encounter
--- OUTSIDE RECORDS SUMMARY | 2024-08-27 13:16 | XMS_ITS | Clinical Summary ---
Author Organization [employer] Address [address] [place] [address] Care Team Providers Care Clock And Watch Hands Dipper Name Role Phone Mackenzie Estrada MD Primary Care Provider [phone] Allergies Active Allergy Reactions Criticality Noted Date Comments [place] (Diagnostic) 05/23/2020 [place] Oil Anaphylaxis High 07/19/2022 Morphine 06/02/2015 Other reaction(s): Unknown Wound Dressing Adhesive 04/04/2020 Tramadol 09/12/2020 Other reaction(s): Vomiting Medications * This document contains information received from the source organization and may not represent a complete record from that organization. benztropine (Cogentin) 0.5 MG tablet Take 0.5 mg by mouth in the morning. Active folic acid (Folvite) 1 MG tablet Take 1,000 mcg by mouth in the morning. 04/28/20 22 Active risperiDONE (RisperDAL) 1 MG tablet take 1 tablet by oral route at bedtime and 1/2 tablet daily as needed for agitation or anxiety Active traZODone (Desyrel) 150 MG tablet take 1 tablet by oral route every day at bedtime as needed Active Alcohol Swabs (SM Alcohol Prep) 70 % pads USE DIRECTED TWICE DAILY 06/16/20 22 Active ALPRAZolam (Xanax) 1 MG tablet Take 1 mg by mouth if needed at bedtime. 07/01/20 22 Active pantoprazole (ProtoNix) 40 MG EC tablet Take 40 mg by mouth in the morning. 05/26/20 22 Active Compound W 17 % external solution APPLY TO THE AFFECTED AREA(S) TWICE DAILY FOR FOURTEEN DAYS 03/10/20 22 Active Sharps Container (GUARDIAN Sharps [employer]arial Science Professor) misc 06/15/20 22 Active Ascorbic Acid (vitamin C) 500 MG tablet TAKE 2 TABLETS BY MOUTH ONCE DAILY IN THE MORNING 12/22/19 23 Active Vitamin D High Potency 25 MCG (1000 UT) capsule Take 25 mcg by mouth in the morning. 12/11/19 23 Active beta carotene (vitamin A) 3 MG (93128 UT) capsule Take by mouth in the morning. 12/22/19 23 Active albuterol (Ventolin HFA) 108 (90 Base) MCG/ACT inhalerIndicati ons:Viral upper respiratory tract infection INHALE 2 PUFFS EVERY 4 HOURS NEEDED FOR WHEEZING OR SHORTNESS OF BREATH 18 g 11 06/20/20 23 Active fluticasone (Flonase) 50 MCG/ACT nasal sprayIndication s:Viral upper respiratory tract infection USE 2 SPRAYS IN EACH NOSTRIL EVERY MORNING 48 g 06/22/20 23 Active cetirizine (ZyrTEC) 10 MG tablet TAKE 1 TABLET BY MOUTH EVERY MORNING FOR EAR PAIN 90 tablet 3 09/12/19 24 Active famotidine (Pepcid) 20 MG tabletIndicatio ns:Gastroesopha geal reflux disease with hiatal hernia TAKE 1 TABLET BY MOUTH TWICE DAILY AT NOON AND IN THE EVENING 180 tablet 3 10/03/19 24 Active gabapentin (Neurontin) 400 MG capsule TAKE 1 CAPSULE BY MOUTH THREE TIMES DAILY IN THE MORNING, EVENING, AND BEDTIME (TAKE 1-2 CAPSULE (S) BY MOUTH THREE TIMES DAILY -EXTRA IN VIAL FOR NEEDED) 120 capsule 6 01/06/20 24 Active docusate sodium (Colace) 100 MG capsule TAKE 1 CAPSULE BY MOUTH AT BEDTIME NEEDED 90 capsule 3 03/28/20 24 Active ursodiol (Sushil) 250 MG tablet Take 1 tablet (250 mg) by mouth 2 times daily. 60 tablet 11 04/10/20 24 025 Active methotrexate 2.5 MG tablet TAKE 10 TABLETS BY MOUTH EVERY WEEK 02/24/20 24 Active Umeclidinium [place] (Incruse Ellipta) 62.5 MCG/ACT aerosol powderIndicatio ns:Subacute cough INHALE 1 PUFF BY MOUTH EVERY DAY AT THE SAME TIME 1 each 04/23/20 24 Active FeroSul 325 (65 Fe) MG tablet TAKE 1 TABLET BY MOUTH EVERY MORNING 90 tablet 3 04/30/20 24 Active Eliquis 5 MG tablet TAKE 1 TABLET BY MOUTH TWICE DAILY IN THE MORNING AND IN THE EVENING 180 tablet 1 05/30/20 Active lidocaine-prilo елена (Emla) 2.5-2.5 % creamIndication s:Bilateral elbow joint pain,Infection of elbow (CMS/HCC) Apply topically Every 8-12 hours as needed for mild pain or moderate pain. Do not apply to open wounds 30 g 06/11/20 24 Active nitroglycerin (Nitrostat) 0.[address] 1 tablet under the tongue every 5 (five) minutes if needed for chest pain. Max 3 doses in 15 min. Call 911/seek medical attention if pain persists 05/29/20 Active atorvastatin (Lipitor) 80 MG tablet Take 1 tablet (80 mg) by mouth Once per day. 90 tablet 3 07/03/20 24 025 Active metoprolol succinate XL (Toprol-XL) 50 MG 24 hr tablet Take 1 tablet (50 mg) by mouth Once per day. 90 tablet 3 07/03/20 24 025 Active clopidogrel (Plavix) 75 MG tablet Take 1 tablet (75 mg) by mouth Once per day. 90 tablet 3 07/03/20 24 025 Active nicotine polacrilex (Nicorette) 4 MG gum Chew 1 each (4 mg) if needed for smoking cessation. 100 each 07/03/20 24 Active nicotine (Nicoderm CQ) 14 MG/24HR patch Place 1 patch on the skin 1 (one) time each day at the same time. 30 patch 07/03/20 24 Active sertraline (Zoloft) 50 MG tablet Take 1 tablet (50 mg) by mouth Once per day. 90 tablet 3 07/03/20 24 025 Active abatacept (Orencia) 125 MG/ML injectionIndica tions:Rheumatoi d Arthritis Inject 125 mg under the skin 1 (one) time per week. Active neomycin-bacitr acin-polymyxin (Neosporin) 5-400-5000 ointment Apply topically 3 times daily. 3.5 g 2 07/20/20 24 Active Diclofenac Sodium 1 % gel apply 2 gram by topical route 4 times every day as needed for hand pain 50 g 2 08/14/19 25 Active lidocaine (Lidoderm) 5 % patch APPLY 1 PATCH TOPICALLY TO SKIN, LEAVE ON FOR 12 HOURS AND OFF FOR 12 HOURS DIRECTED 30 patch 3 08/14/19 25 Active oxyCODONE-aceta minophen (Percocet) 7.5-325 MG tabletIndicatio ns:Osteonecrosi s of hip with collapse of femoral head present on x-ray (CMS/HCC) Take 1 tablet by mouth every 8 (eight) hours if needed for severe pain for up to 28 days. Do not start before August 23, 2024. 84 tablet 08/23/19 25 025 Active Diclofenac Sodium 1 % gel apply 2 gram by topical route 4 times every day as needed for hand pain 03/24/20 025 Discontinued(Re order (will not trigger notification to Pharmacy)) lidocaine (Lidoderm) 5 % patch APPLY 1 PATCH TOPICALLY TO SKIN, LEAVE ON FOR 12 HOURS AND OFF FOR 12 HOURS DIRECTED 30 patch 3 08/02/19 24 025 Discontinued(Re order (will not trigger notification to Pharmacy)) predniSONE (Deltasone) 20 MG tabletIndicatio ns:Rheumatoid arthritis involving multiple sites with positive rheumatoid factor (CMS/HCC) Take 40 mg by mouth Once per day. 04/24/20 24 025 Discontinued(Th erapy completed) polyethylene glycol, PEG, 3350 (MiraLax) 17 GM/SCOOP powder Take 17 g by mouth Once per day. 527 g 2 05/10/20 24 025 oxyCODONE-aceta minophen (Percocet) 10-325 MG tabletIndicatio ns: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 (CMS/HCC),Infla mmatory arthritis Take 1 tablet by mouth every 8 (eight) hours if needed for severe pain for up to 5 days. 15 tablet 07/12/20 24 025 Discontinued(Th erapy completed) oxyCODONE-aceta minophen (Percocet) 7.5-325 MG tabletIndicatio ns:Osteonecrosi s of hip with collapse of femoral head present on x-ray (CMS/HCC) Take 1 tablet by mouth every 8 (eight) hours if needed for severe pain for up to 28 days. 84 tablet 07/26/20 24 025 Discontinued(Re order (will not trigger notification to Pharmacy)) Active Problems Problem Noted Date Diagnosed Date Long-term current use of opiate analgesic 2024 Overview (08/15/2024): Medication: Percocet 7.5/325mg TID PRN Indication: Rheumatoid arthritis Last DESKTOP OPERATOR Agreement: 06/12/24 Tier: II (Q3 months visits), Dr. Estrada 08/15/24 Assessment & Plan (08/14/2024 4:38 PM EST): -Good engagement and participation with Group Medical Visit model -Encouraged multifactorial approach to pain control including pharm and non- pharm modalities -UTOX and Pill count as expected Right hip pain 07/12/2024 Pain and swelling of left wrist 07/12/2024 Epicondylitis elbow, medial, left 07/03/2024 Assessment & Plan (07/03/2024 2:18 PM EST): Resolved, S/P antibiotics. Continue FU with Rheumatology for RA, she is on infusion x 1 month. NSTEMI (non-ST elevated myocardial infarction) 1 09/03/2023 Overview (07/03/2024): 05/2024 Catheterization revealed mid LAD plaque rupture and 80% stenosis. ECHO revealed LVEF 51%, abnormal septal motion consistent with conduction abnormality, mild mitral and tricuspid regurgitation, and mildly elevated CVP to 8 mmHg. EKG demonstrated prolonged Qtc to 556 msec Assessment & Plan (07/03/2024 2:17 PM EST): S/P cardiac cath on 05/29/24, doing well. FU with cardiology. Continue on Metoprolol, Lipitor + Eliquis (due to recurrent DVT) + Plavix ( x 1 year). Will FU for cardio rehab. Advised to quit smoking. 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 Castro Assessment & Plan (01/26/2024 11:10 AM EDT): On review of chart Im aware of patient's hip osteonecrosis and steroids should be avoided but in light of severity of inflammation and pain I will have to prescribe prednisone, I will do a short course instead of long taper for 5 days, I will also increase her percocet from 7.5/325 to 10/325mg TID for 5 days I instructed not to take together this 2 meds and after she finish to go back to her previous dose, DESKTOP OPERATOR nurse informed about my plan, I instructed to book a sooner appointment with rheumatology to re-evaluate her case Inflammatory arthritis 01/26/2024 Osteonecrosis of hip with co llapse of femoral head present on x-ray 01/02/2024 Assessment & Plan (05/02/2024 10:53 AM EDT): Avoid prednisone to the greatest extent possible Class 1 obesity 09/28/2023 COVID-19 09/16/2023 Assessment & Plan (09/16/2023 12:44 PM EST): Pt has multiple risk factors including obesity,SLE,RA,DVT hx,hx of tobacco use,hx of lymphoma who tested positive for COVID 19 today and within window for tx with symptoms Pt is not a candidate for paxlovid due to possible interactions w her current meds and molnupiravir is not as effective -I spoke today with [facility] staff today ( Shahla) and confirmed they do have remdesivir which will be the best options for tx for this pt , ER at [facility] are expecting pt for evaluation. Also pt will need r/o DVT with intense pain in her left leg this maybe neuropathic pain associated w lumbar pain but description of symptoms are not typical for sciatica ,she does have intense pain w palpation over left tight and calf so needs workup ro r/o DVT. -pt does not have transportation and given in significant pain of her leg can not ambulate so ambulance were called and handed this note Chronic lower back pain 09/16/2023 Leg pain, anterior, left 09/16/2023 Tobacco dependence 03/07/2023 Assessment & Plan (07/03/2024 2:19 PM EST): Pt non smoking since discharged, continue nicotine patch 14 mg + nicotine gum PRN. Left hand pain 03/03/2023 Assessment & Plan (03/03/2023 10:09 AM EDT): Exacerbation of sero postive rheumatoid arthritis . -Increase prednisone to 10mg BID for 2-3 days. -Pt scheduled for first rituximab infusion 03/10/23. Rheumatoid arthritis flare 01/18/2023 Assessment & Plan (07/12/2024 12:17 PM EST): PT with RA flair. Rheumatology is aware and recommended to pt to wait until recent infusion has time to work. She has restarted her methotrexate. Unable to take Prednisone due to hx avascular necrosis. -increase Percocet to 10, 325 mg TID for 5 days (same plan as flair in January 2024) -has Narcan at home and verbalized understanding of the plan. -discussed return and ER precautions. -encouraged f/u with PCP and specialists. -Dicussed with COT nurse who is aware of plan. Assessment & Plan (02/09/2024 1:34 PM EDT): Take methotrexate 25 MG today and continue every week as per Rheumatology. Rx sent to [facility] and they will continue refill for Rheumatology. Discussed with pt importance of taking medications as prescribed follow up with PCP or Rheumatology is she needs refills. Continue Folic Acid and Olumiant. Pt will follow up with Rheumatology next week, if no improvement she may need to use PRD. Rx for Percocet due tomorrow will by patient today due to limited ambulation as above. She is aware that she is still due for next prescription after 03/09/2024. Assessment & Plan (11/10/2023 8:34 AM EDT): Prednisone taper 50, 40, 30, 20, 10 for three days each Followup with rheumatology to let them know about flare Check labs *RF, ESR, CRP Increase Percocet to 10/325 TID for 5 days, then back to 5/325 dosing Assessment & Plan (01/18/2023 2:43 PM EDT): Increase PRD to 20mg/d x 2w then 15mg the following week then back to 10mg until she sees rheumatology Check labs Stress incontinence 10/18/2022 Overview (10/18/2022): -DME request for panty liners 10/18/22 Assessment & Plan (12/07/2023 2:15 PM EDT): Will consider additional options at next appointment Acute ankle pain 07/03/2022 Cellulitis of axilla 07/03/2022 Constipation 07/03/2022 Elevated blood pressure reading 07/03/2022 Hand pain 07/03/2022 History of 2019 novel coronavirus disease (COVID -19) 07/03/2022 Lumbosacral stenosis 07/03/2022 Acute pain of both knees 07/03/2022 Straining during bowel movements 07/03/2022 Chronic occlusion of artery of extremity 022 Overview (07/03/2022): 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 Acute deep vein thrombosis ( DVT) of tibial vein of right lower extremity 01/29/2022 Assessment & Plan (06/25/2023 7:11 AM EST): Continue Apixaban 5mg BID indefinitely Leg edema 12/05/2020 History of DVT (deep vein thrombosis) 05/23/2020 Overview (09/28/2023): 01/2005 Right Subclavain correction current use of anticoagulant 0 Personal history of Hodgkin lymphoma 05/09/2020 Axillary lymphadenopathy 05/09/2020 Acute deep vein thrombosis ( DVT) of brachial vein of right upper extremity 03/07/2020 Lymphadenopathy, generalized 03/07/2020 Migraine without status migrainosus, not intract able 12/06/2017 Paresthesia and pain of left extremity 05/08/201 8 Gastroesophageal reflux disease 06/03/2017 Rheumatoid arthritis involving multiple sites Assessment & Plan (07/03/2024 2:58 PM EST): It seems to be uncontrolled per recent ESR. FU with rheumatology this week for monthly Orenzia infusion Continue methotrexate and percocet for pain Assessment & Plan (05/02/2024 10:54 AM EDT): Uncontrolled, active disease, high ESR Hopefully Orencia will provide better control Assessment & Plan (04/10/2024 2:50 PM EDT): -Good engagement and participation with Group Medical Visit model -Encouraged multifactorial approach to pain control including pharm and non- pharm modalities -UTOX and Pill count as expected Assessment & Plan (02/07/2024 2:14 PM EDT): -Good engagement and participation with Group Medical Visit model -Encouraged multifactorial approach to pain control including pharm and non- pharm modalities -UTOX and Pill count as expected Assessment & Plan (01/02/2024 9:33 PM EDT): Primarily managed by Rheum at [facility] Continue to take Oulimiant 2mg, Methotrexate 20mg weekly, folic acid 1mg daily Continue Percocet for pain mgmt, will increase to 7.5mg/325 every hours at next fill 01/14/24 Stop taking prednisone due to osteonecrosis of R hip Acute flare seems to be quiescent now Assessment & Plan (12/13/2023 8:28 PM EDT): Continues with the following regimen: Oulimiant 2mg, Methotrexate 20mg weekly, folic acid 1mg daily (Prednisone bursts for acute flares) Continues with Percocet PRN for pain mgmt -Good engagement and participation with Group Medical Visit model, today was first visit. -Encouraged multifactorial approach to pain control including pharm and non- pharm modalities -UTOX and Pill count as expected Assessment & Plan (12/07/2023 11:00 AM EDT): Continue to take Oulimiant 2mg, Methotrexate 20mg weekly, folic acid 1mg daily Continue Percocet for pain mgmt Resume prednisone 2.5mg daily after prednisone burst is completed Acute flare seems to be quiescent now Assessment & Plan (06/25/2023 7:12 AM EST): Continue to take Methotrexate 20mg weekly Plan to start trial of Baricitinib when PA is approved Can take prednisone 10mg daily x 7 days due to active synovitis on exam Continue Percocet for pain mgmt Assessment & Plan (03/14/2023 1:33 PM EDT): Signs of active disease with swollen joints, DVT, elevated sed rate, rheumatoid nodules Started Remicaid infusion 03/10/23 Continue methotrexate weekly Assessment & Plan (01/18/2023 2:44 PM EDT): Actemra is dc'd due to side effects. I spoke with Dr Ram Who will see her on 02/07 at 11:30am (info given to patient). He said she may need to satrt on Rituximab infusion, he will fu on 02/07 Continue {methotrexate weekly Assessment & Plan (12/03/2022 8:30 AM EDT): Possible to start Rituximab for immunosuppression Continue Actemra injections and prednisone for now hydrocortisone cream sent for rheumatoid nodules Absolute anemia 06/03/2017 Arthritis, senescent 06/03/2017 Lymphadenopathy of left cervical region 06/03/20 17 Recurrent major depressive disorder, in remissio n 06/03/2017 Mediastinal lymphadenopathy 10/24/2012 Fatigue 08/09/2012 Goiter 08/09/2012 Psychoactive substance use disorder 05/04/2012 Cobalamin deficiency 04/19/2012 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 12/30 Nodular sclerosis Hodgkin ly mphoma of lymph nodes of multiple regions 01/17/2012 Assessment & Plan (12/07/2023 10:58 AM EDT): Needs annual oncology followup Assessment & Plan (03/14/2023 1:31 PM EDT): Needs annual oncology followup Anxiety 01/05/2012 Assessment & Plan (03/14/2023 1:32 PM EDT): Her anxiety is very high right now, due to conflict with and fear of her neighbor Continue meds per psychiatrist Coping better now than at visit 2 months ago, enjoying being outside and in nature Assessment & Plan (12/03/2022 8:29 AM EDT): Her anxiety is very high right now, due to conflict with and fear of her neighbor She would benefit from being out of this situation Instructed her on how to obtain letter stating conditions, mental and physical are the following and that they are being exacerbated by her living environment Pt to go to medical records immediately after appointment to sign release Depressive disorder 01/05/2012 Assessment & Plan (07/03/2024 3:00 PM EST): She is off of medications due to prolonged OT, today's EKG showed normal OT. Restart sertraline 50mg and fu with PCP next month, Will discuss with PCP regarding gradual reintroduction of other psychoactive meds. Encounters * This document contains information received from the source organization and may not represent a complete record from that organization. Date Type Department Care Team Description 08/22/2024 Refill [facility] [address] [place] [address] Mackenzie Estrada MD 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 ([facility]) 08/19/2024 Refill [facility] [address] [place] [address] Mackenzie Estrada MD 08/16/2024 Telephone [facility] [address] [place] [address] Hanny Lacy [place] Appointment Request 08/15/2024 Telephone [facility] [address] [place] [address] Mackenzie Estrada MD Durable Medical Equipment (10 In 1 pillow ) 08/14/2024 9:45 AM EST Office Visit [facility] [address] [place] [address] Sisi Kennedy FNP Long-term current use of opiate analgesic (Primary Dx); 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 ([facility]); Inflammatory arthritis 08/14/2024 Travel 07/27/2024 Orders Only GENERIC EXTERNAL DATA DEPARTMENT Provider, Generic External Data 07/26/[address] [address] Mackenzie Estrada MD 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 ([facility]/HCC) 07/20/2024 10:15 AM EST Office Visit [address] [address] Mark Yang MD Ear pain, bilateral (Primary Dx) 07/20/[address] [address] Mackenzie Estrada MD 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 ([facility]) 07/20/2024 Travel 07/20/[address] [address] Mackenzie Estrada MD 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 ([facility]) 07/20/[address] [address] Mackenzie Estrada MD Nurse Triage 07/12/2024 10:40 AM EST Office Visit [facility] [address] [place] [id number] Kat Yo MD Rheumatoid arthritis flare ([facility]) (Primary Dx); Right hip pain; Pain and swelling of left wrist; 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 ([facility]); Inflammatory arthritis 07/12/[address] [address] Mackenzie Estrada MD Nurse Triage 07/12/2024 Orders Only [facility] External Provider, [facility] 07/09/2024 Patient Outreach [facility] [address] [place] [address] Mackenzie Estrada MD Transition Of Care (Tcm); Error (VOID this visit) 07/09/2024 Telephone [facility] [address], [place] [phone] Mackenzie Estrada MD Error (VOID this visit) 07/09/2024 Patient Outreach [address] [address] Mackenzie Estrada MD Transition Of Care (Tcm) 07/08/2024 Orders Only GENERIC EXTERNAL DATA DEPARTMENT Provider, Generic External Data 07/03/2024 10:45 AM EST Office Visit [address] [address] Ebony Daigle MD NSTEMI (non-ST elevated myocardial infarction) ([facility]/HCC) (Primary Dx); Epicondylitis elbow, medial, left; Tobacco dependence; Depressive disorder; 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 ([facility]); Rheumatoid arthritis involving multiple sites with positive rheumatoid factor ([facility]/HCC) 07/03/[address] [address] Mackenzie Estrada MD telephone call 07/03/2024 Travel 06/27/[address] [address] Liz Sommers, gas load dispatcher 06/22/[address] [address] Mackenzie Estrada MD 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 ([facility]) 06/15/[address] [address] Yaya Bee, KelechiD Appointment Request 06/15/[address] [address] Mackenzie Estrada MD Nurse Triage 06/14/2024 Patient Outreach [address] [phone] Mackenzie Estrada MD Transition Of Care (Tcm) (HDF- APPOINTMENT REMINDER ) 06/12/2024 9:00 AM EST Clinical Support [address] [address] Kaylene Samano, pinion polisher, continuous use of opioids (Primary Dx) 06/12/[address] [address] Kaylene Samano, RN BPI scoring 06/12/2024 Travel 06/12/2024 Orders Only GENERIC EXTERNAL DATA DEPARTMENT Provider, Generic External Data 06/12/2024 Telephone [facility] [address] [address] Sarika Palacios ANP 06/11/2024 3:00 PM EST Office Visit [facility] [address] [address] Sarika Palacios ANP Bilateral elbow joint pain (Primary Dx); Infection of elbow (CMS/HCC) 06/11/[address] [address] Mackenzie Estrada MD Nurse Triage 06/11/2024 Patient Outreach [address] [address] Davy Brown RN Transition Of Care (Tcm) 06/08/2024 Orders Only GENERIC EXTERNAL DATA DEPARTMENT Provider, Generic External Data 05/30/2024 Patient Outreach [address] [address] Mackenzie Estrada MD Transition Of Care (Tcm) (HDF- scheduled and SDOH screening completed on 12/20/2023) 05/30/[address] [address] Mackenzie Estrada MD 05/28/[address] [address] Mackenzie Estrada MD Med Refill 05/28/[address] [address] Mackenzie Estrada MD FYI 05/28/2024 Patient Outreach [address] [address] Mackenzie Estrada MD Transition Of Care (Tcm) (HDF unscheduled) from Last 3 Months Immunizations Name Administration Dates Next Due Hep A, Adult 08/28/2012 Hep B, adult 08/28/2012,09/08/2006,05/04/2006 Influenza Injectable Quadriv alant Preservative Free IIV4 MDCK 04/28/2023 Influenza injectable quadriv alent IIV4 with preservative 04/19/2017 Influenza injectable quadriv alent preservative free 05/13/2021,07/05/2018 Influenza, IIV3, injectable 07/15/2014, 1 Influenza, Split (incl. severino fied surface antigen) 05/04/2012 Moderna Covid-19 Vaccine 12+ 07/23/2021,12/11/19 21,11/12/2020 Pneumococcal Conjugate PCV 13 03/15/2018 Pneumococcal Polysaccharide PPSV23 08/10/2006 Tdap 04/19/2017 Family History Medical History Relation Name Comments Stroke Father Coronary artery disease Mother Diabetes Mother Relation Name Status Comments Father Mother Social History Tobacco Use Types Packs/Day Years Used Date Smoking Tobacco: Former Cigarettes Passive Smoke Exposure: Never Smokeless Tobacco: Never Tobacco Cessation:Counseling Given: Not Answered Alcohol Use Standard Drinks/Week Comments Never 0 [...] Orientation Straight 05/31/2022 10 :18 AM EDT Last Filed Vital Signs Vital Sign Reading Time Taken Comments Blood Pressure 120/80 07/20/2024 10:26 AM EST Pulse 95 07/20/2024 10:26 AM EST Temperature 37.1 ??C (98.8 ??F) 07/20/2024 10:[address] Respiratory Rate 18 07/20/2024 10:26 AM EST Oxygen Saturation 98% 07/20/2024 10:26 AM EST Inhaled Oxygen Concentration - - Weight 83.5 kg (184 lb) 07/20/2024 10:26 AM EST Height 157.5 cm (5' 2 ) 07/20/2024 10:26 AM EST Body Mass Index 33.65 07/20/2024 10:26 AM EST Plan of Treatment Upcoming Encounters Date Type Department Care Team (Late st Contact Info) Description 09/11/2024 9:45 AM EST Office Visit [facility] [address] [place] [phone] 09/24/2024 3:15 PM EST Office Visit [facility] [address] [place] [address] Mackenzie Estrada MD [address] [place] [address] 10/01/2024 10:00 AM EST Office Visit [facility] [address] [place] [address] Libra Linder, OD [address] [place] [address] Health Maintenance Due Date Last Done Comments CT Colonography 1976 Dental Prophylaxis 1976 FIT DNA/Cologuard 1976 FIT 1976 FOBT 1976 Sigmoidoscopy 1976 Alcohol/Substance Use Screening 1988 Family Planning (PISQ) 1991 Zoster Vaccines (1 of 2) 1995 Hepatitis A Vaccines (2 of 2 - Risk 2-dose series) 02/25/2013 08/28/2012 Pneumococcal Vaccine: Pediatrics (0 to 5 Years) and At-Risk Patients (6 to 64 Years) (3 of 3 - PPSV23 or PCV20) 05/10/2018 03/15/2018, 08/10/2006 Dental Oral Exam 07/30/2021 01/27/2021 Mammogram 10/10/2023 10/09/2021, 11/24/2018 Dental X-Ray: Full Mouth 01/29/2024 01/27/2021 COVID-19 Vaccine ( season) 2024 07/23/2021, 12/10/2020, 11/12/2020 Influenza Vaccine (#1) 2024 , 05/13/2021, 07/05/2018, Additional history exists SDOH Screening 12/19/2024 12/20/2023 Dental X-Ray: Bitewings 01/20/2025 01/20/20 24, 01/27/2021, 04/19/2016 Depression Screening 04/30/2025 04/30/2024, 04/30/20 24 Tobacco Screening 07/20/2025 07/20/2024 DTaP/Tdap/Td Vaccines (2 - Td or Tdap) 04/19/2027 04/19/2017 Colonoscopy 10/29/2027 10/28/2017 Colorectal Cancer Screening 10/29/2027 Cervical Cancer Screening 09/28/2028 HPV/Cotest 09/28/2028 09/29/2023, 11/22/2018 Pap Smear 09/28/2028 09/29/2023 RSV Patients and Patients Aged 60 years or older (1 - 1-dose 75+ series) 2051 Hepatitis B Vaccines Completed 08/28/2012, 09/08/2006, 05/04/2006 HIV Screening Completed 04/11/2024 Hepatitis C Screening Completed 04/11/2024 HIB Vaccines Aged Out No longer eligi ble based on patient's age to complete this topic HPV Vaccines Aged Out No longer eligi ble based on patient's age to complete this topic IPV Vaccines Aged Out No longer eligi ble based on patient's age to complete this topic Meningococcal Vaccine Aged Out No martin barbra eligible based on patient's age to complete this topic RSV under 20 months Aged Out No longe r eligible based on patient's age to complete this topic Rotavirus Vaccines Aged Out No longer eligible based on patient's age to complete this topic Goals Goal Patient Goal Type Associated Problems Recent Progress Patient-Stated? Author Quit using tobacco (cigarettes, smokeless, etc) Tobacco Use No Corey Lin, Bailey Procedures Procedure Name Priority Date/Time Associated Diagnosis Comments POCT GALLO-14 URINE DRUG SCREEN Routine 08/14/2024 1:47 PM EST Long-term current use of opiate analgesic XR CLAVICLE LEFT Routine 07/27/2024 7:24 AM EST XR SHOULDER 2+ VIEWS LEFT Routine 07/27/2024 7:20 AM EST XR CHEST 2 VIEWS Routine 07/27/2024 7:20 AM EST COMPREHENSIVE METABOLIC PANEL Routine 07/27/2024 1:09 AM EST HIGH SENSITIVITY TROPONIN I Routine 07/27/2024 1:09 AM EST CBC WITH AUTO DIFFERENTIAL Routine 07/27/2024 1:09 AM EST XR HIP 2 OR 3 VIEWS RIGHT Routine 07/12/2024 3:30 AM EST HIGH SENSITIVITY TROPONIN I Routine 07/08/2024 5:40 AM EST POCT GALLO-14 URINE DRUG SCREEN Routine 06/12/2024 1:16 PM EST Chronic, continuous use of opioids XR ELBOW 3+ VIEWS LEFT Routine 11:40 AM EST URIC ACID Routine 06/12/2024 11:32 AM EST SED RATE BY MODIFIED WESTERGREN Routine 06/12/2024 11:32 AM EST B TYPE NATRIURETIC PEPTIDE (BNP) Routine 06/12/2024 11:32 AM EST LACTIC ACID Routine 06/12/2024 11:32 AM EST C-REACTIVE PROTEIN Routine 06/12/2024 11 :32 AM EST HEPATIC FUNCTION PANEL Routine 11:32 AM EST HIGH SENSITIVITY TROPONIN I Routine 06/12/2024 10:57 AM EST BASIC METABOLIC PANEL Routine 06/12/2024 10:57 AM EST CBC WITH AUTO DIFFERENTIAL Routine 06/12/2024 10:57 AM EST HIGH SENSITIVITY TROPONIN I Routine 06/08/2024 12:45 PM EST B TYPE NATRIURETIC PEPTIDE (BNP) Routine 06/08/2024 12:45 PM EST MAGNESIUM Routine 06/08/2024 12:45 PM EST COMPREHENSIVE METABOLIC PANEL Routine 06/08/2024 12:45 PM EST CBC WITH AUTO DIFFERENTIAL Routine 06/08/2024 12:45 PM EST PROTHROMBIN TIME-INR Routine 06/08/2024 12:45 PM EST XR CHEST 1 VIEW Routine 06/08/2024 12:37 PM EST HEPATITIS C ANTIBODY Routine 04/11/2024 10:26 AM EDT Encounter for routine adult medical exam with abnormal findings HIV 1/2 ANTIGEN/ANTIBODY, FOURTH GENERATION W/RFL Routine 04/11/2024 10:26 AM EDT Encounter for routine adult medical exam with abnormal findings BITEWING - SINGLE RADIOGRAPHIC IMAGE Routine 01/20/2024 1:00 PM EDT HPV MRNA E6/E7 REFLEX TO HPV 16, 18/45 Routine 09/29/2023 12:26 PM EST PAP SMEAR Routine 09/29/2023 12:26 PM EST MAMMOGRAM GENERIC Routine 10/09/2021 12: 05 PM EST DIAGNOSTIC - DIAGNOSTIC IMAGING - INTRAORAL - COMPREHENSIVE SERIES OF RADIOGRAPHIC IMAGES Routine 01/27/2021 12:00 AM EDT COMPREHENSIVE ORAL EVALUATION - NEW OR ESTABLISHED PATIENT Routine 01/27/2021 12:00 AM EDT HM COLONOSCOPY Routine 10/28/2017 from Last 3 Months or Most Recently Relevant to Health Maintenance Results * POCT GALLO-14 Urine Drug Screen (08/14/2024 1:47 PM EST) Only the most recent of2 resultswithin the time period is included. THC Positive Benzodiazepines Screen, Urine Positive TCA, Urine Positive Oxycodone Screen, Urine Positive Urine Urine specimen obtained by clean catch procedure / Unknown 08/14/2024 1:47 PM EST Sisi Kennedy [employer] POINT OF CARE TEST ENTER/EDIT ORDERABLES Final Result * XR Clavicle Left (07/27/2024 7:24 AM EST) Anatomical Region Laterality Modality Body, Clavicle Left Radiographic Rin ging 07/27/2024 7:24 AM EST Narrative 07/27/2024 9:09 AM EST ? [facility] ?[address] ?[place] [address] ?XRay Report ? Signed ? Patient: Ovidio Lacy,Ginette ?MR ?? #: [id number] ? : 1975 ?Acct:[id number] ? Age/Sex: 49 / F ?ADM Date: 12/27/24 ? Loc: HO.ED ? Attending Dr: ? Ordering Physician: Jana Mcdaniel ?? Date of Service: 07/27/24 ?? Procedure(s): XR clavicle LT ?? Accession Number(s): [id number] ? cc: Mackenzie Estrada; Jana Mcdaniel ? EXAMINATION: ?? XR CLAVICLE, LEFT ? CLINICAL INFORMATION: ?? pain ? COMPARISON: ?? None available. ? TECHNIQUE: ?? Straight AP and cephalad angulated AP views of the left clavicle. ? FINDINGS: ?? The clavicle is intact. The bones and soft tissues are normal. No ?? fracture. Acromioclavicular joint alignment is anatomic. ? XR/XR clavicle LT ?? IMPRESSION: ?? Normal left clavicle. ? Electronically signed by: ??Arian Mondragon MD ??07/27/2024 09:05 AM EST RP ? Dictated By: ?Arian Mondragon MD ? Signed By: ?<Electronically signed by Arian Mondragon MD in OV> ?07/27/24 0905 ? DD/ 3 ? TD/TT: 07/27/24733 ? Hides Soaker: ? Procedure Note Deepa Padgett - 07/27/2024 [place] [address] XRay Report Signed Patient: Ginette Arceo #: [id number] : 1975Acct:[id number] Age/Sex: 49 / FADM Date: 07/27/24 Loc: HO.ED Attending Dr: Ordering Physician: Jana Mcdaniel Date of Service: 07/27/24 Procedure(s): XR clavicle LT Accession Number(s): [id number] cc: Mackenzie Estrada; Jana Mcdaniel EXAMINATION: XR CLAVICLE, LEFT CLINICAL INFORMATION: pain COMPARISON: None available. TECHNIQUE: Straight AP and cephalad angulated AP views of the left clavicle. FINDINGS: The clavicle is intact. The bones and soft tissues are normal. No fracture. Acromioclavicular joint alignment is anatomic. XR/XR clavicle LT IMPRESSION: Normal left clavicle. Electronically signed by: Arian Mondragon MD 07/27/2024 09:05 AM EST Dictated By: Arian Mondragon MD Signed By: <Electronically signed by Arian Mondragon MD in OV> 07/27/2405 DD/ 3 TD/TT: 07/27/24733 Hides Soaker: us [facility] External Provider IMG XR PROCEDURES Final Result * XR Shoulder 2+ Views Left (07/27/2024 7:20 AM EST) Anatomical Region Laterality Modality Upper Extremities, Shoulder Left Radi ographic Imaging 07/27/2024 7:20 AM EST Narrative 07/27/2024 9:11 AM EST ? [facility] ?[address] ?[place] [address] ?XRay Report ? Signed ? Patient: Ovidio Lacy,Ginette ?MR ?? #: [id number] ? : 1975 ?Acct:[id number] ? Age/Sex: 49 / F ?ADM Date: 07/27/24 ? Loc: HO.ED ? Attending Dr: ? Ordering Physician: Jana Mcdaniel ?? Date of Service: 07/27/24 ?? Procedure(s): XR shoulder LT min 2V ?? Accession Number(s): [id number] ? cc: Mackenzie Estrada; Jana Mcdaniel ? EXAMINATION: ?? XR SHOULDER, LEFT ? CLINICAL INFORMATION: ?? pain ? COMPARISON: ?? None available. ? TECHNIQUE: ?? AP external rotation, Grashey, scapular Y, and axillary views of the ?? left shoulder. ? FINDINGS: ?? No fracture, dislocation, or suspicious bone lesion. ?? There is normal alignment. ?? Glenohumeral joint space and AC joint appear normal. ?? Neutral lateral acromion without significant spurring. No evidence of ?? outlet stenosis. ?? Subacromial space is preserved. ? Tiny amount of calcification of the supraspinatous tendon abutting the ?? footplate attachment. Soft tissues otherwise normal. ?? Remainder of the bony structures and soft tissues appear normal. ? XR/XR shoulder LT min 2V ?? IMPRESSION: ?? 1. No acute findings, or significant arthritic changes left shoulder. ?? 2. Mild calcific tendinopathy of the infraspinatus tendon. ? Electronically signed by: ??Arian Mondragon MD ??07/27/2024 09:09 AM EST RP ? Dictated By: ?Arian Mondragon MD ? Signed By: ?<Electronically signed by Arian Mondragon MD in OV> ?07/27/24 0909 ? DD/ 0720 ? TD/TT: 07/27/24 0734 ? Hides Soaker: ? Procedure Note Lorin, Image - 07/27/2024 [place] [address] XRay Report Signed Patient: Ginette ArceoMR #: [id number] : 1975Acct:[id number] Age/Sex: 49 / FADM Date: 07/27/24 Loc: HO.ED Attending Dr: Ordering Physician: Jana Mcdaniel Date of Service: 07/27/24 Procedure(s): XR shoulder LT min 2V Accession Number(s): [id number] cc: Mackenzie Estrada; Jana Mcdaniel EXAMINATION: XR SHOULDER, LEFT CLINICAL INFORMATION: pain COMPARISON: None available. TECHNIQUE: AP external rotation, Grashey, scapular Y, and axillary views of the left shoulder. FINDINGS: No fracture, dislocation, or suspicious bone lesion. There is normal alignment. Glenohumeral joint space and AC joint appear normal. Neutral lateral acromion without significant spurring. No evidence of outlet stenosis. Subacromial space is preserved. Tiny amount of calcification of the supraspinatous tendon abutting the footplate attachment. Soft tissues otherwise normal. Remainder of the bony structures and soft tissues appear normal. XR/XR shoulder LT min 2V IMPRESSION: 1. No acute findings, or significant arthritic changes left shoulder. 2. Mild calcific tendinopathy of the infraspinatus tendon. Electronically signed by: Arian Mondragon MD 07/27/2024 09:09 AM EST RP Dictated By: Arian Mondragon MD Signed By: <Electronically signed by Arian Mondragon MD in OV> 07/27/2409 DD/ 9 TD/TT: 07/27/24 0734 Hides Soaker: [facility] External Provider IMG XR PROCEDURES Final Result * XR Chest 2 Views (07/27/2024 7:20 AM EST) Anatomical Region Laterality Modality Chest Radiographic Rin ging 07/27/2024 7:20 AM EST Narrative 07/27/2024 9:10 AM EST ? [facility] ?[address] ?[place] [address] ?XRay Report ? Signed ? Patient: Ovidio LacyGinette ?MR ?? #: [id number] ? : 1975 ?Acct:[id number] ? Age/Sex: 49 / F ?ADM Date: 07/27/24 ? Loc: HO.ED ? Attending Dr: ? Ordering Physician: Jana Mcdaniel ?? Date of Service: 07/27/24 ?? Procedure(s): XR chest 2V ?? Accession Number(s): [id number] ? cc: Mackenzie Estrada; Jana Mcdaniel ? EXAMINATION: ?? XR CHEST ? CLINICAL INFORMATION: ?? pain ? COMPARISON: ?? Numerous priors, most recently 06/08/2024 and 05/26/2024. ? TECHNIQUE: ?? 2 views of the chest were obtained. ? FINDINGS: ?? The cardiac, hilar, and mediastinal contours are normal. ? The lungs are clear bilaterally. There is no pneumothorax or pleural ?? effusion. ? There is no focal osseous or soft tissue abnormality. ?? Surgical clips noted right low axilla. ? XR/XR chest 2V ?? IMPRESSION: ?? Normal chest. ? Electronically signed by: ??Arian Mondragon MD ??07/27/2024 09:06 AM EST RP ? Dictated By: ?Arian Mondragon MD ? Signed By: ?<Electronically signed by Arian Mondragon MD in OV> ?07/27/24 0906 ? DD/ 0720 ? TD/TT: 07/27/24 0734 ? Hides Soaker: ? Procedure Note Donotuseinterpreter, Image - 07/27/[address] [address] XRay Report Signed Patient: Ginette ArceoMR #: [id number] : 1975Acct:[id number] Age/Sex: 49 / FADM Date: 07/27/24 Loc: HO.ED Attending Dr: Ordering Physician: Jana Mcdaniel Date of Service: 07/27/24 Procedure(s): XR chest 2V Accession Number(s): [id number] cc: Mackenzie Estrada; Jana Mcdaniel EXAMINATION: XR CHEST CLINICAL INFORMATION: pain COMPARISON: Numerous priors, most recently 06/08/2024 and 05/26/2024. TECHNIQUE: 2 views of the chest were obtained. FINDINGS: The cardiac, hilar, and mediastinal contours are normal. The lungs are clear bilaterally. There is no pneumothorax or pleural effusion. There is no focal osseous or soft tissue abnormality. Surgical clips noted right low axilla. XR/XR chest 2V IMPRESSION: Normal chest. Electronically signed by: Arian Mondragon MD 07/27/2024 09:06 AM EST Dictated By: Arian Mondragon MD Signed By: <Electronically signed by Arian Mondragon MD in OV> 07/27/24905 DD/ 9 TD/TT: 07/27/24733 Hides Soaker: us [facility] External Provider IMG XR PROCEDURES Final Result * High Sensitivity Troponin I (07/27/2024 1:09 AM EST) Only the most recent of4 resultswithin the time period is included. TROPONIN I HIGH SENSITIVITY <2.7 <3.5 - 17.0 ng/L [facility] Comment:The Shea high sens itivity Troponin-I results should beused in conjunction with other diagnostic information suchas ECG, clinical observations and information, and patientsymptoms to aid in the diagnosis of PA. 07/27/2024 1:09 AM EST 07/27/2024 1:19 AM EST us Generic External Data Provider LAB BLOOD ORDERAB LES Final Result [facility] [address] [place] [phone] * (ABNORMAL) CBC auto differential (07/27/2024 1:09 AM EST) Only the most recent of3 resultswithin the time period is included. White Blood Count 4.9 4.8 - 10.8 X10*3/uL [facility] Red Blood Count 3.62(L) 4.20 - 5.50 X10*6/uL [facility] Hemoglobin 10.2(L) 12.0 - 16.0 g/dl [facility] Hematocrit 31.7(L) 37.0 - 47.0 % [facility] Mean Corpuscular Volume 87.6 80.0 - 98.0 fL [facility] Mean Corpuscular Hemoglobin 28.2 27.0 - 33.0 pg [facility] Mean Corpuscular HGB Conc 32.2 31.0 - 35.0 g/dl [facility] Red Cell Distribution Width 14.0 11.0 - 16.0 % [facility] Platelet Count 300 160 - 400 X10*3/uL [facility] Mean Platelet Volume 10.1 9.4 - 12.3 fL [facility] Neutrophils Percent Auto 61.2 45 - 73 % [facility] Imm Gran Pct Auto 0.2 0.0 - 0.4 % [facility] Lymphocytes Percent Auto 29.7 20 - 40 % [facility] Monocytes Percent Auto 7.1 2 - 11 % [facility] Eosinophils Percent Auto 1.6 0 - 4 % [facility] Basophils Percent Auto 0.2 0 - 2 % [facility] NRBC Pct Auto 0.0 0.0 - 0.2 /100WBC [facility] Neutrophils Absolute Auto 3.0 2.0 - 8.3 x10*3/uL [facility] Imm Gran Abs Auto 0.01 0.00 - 0.03 X10*3/uL [facility] Lymphocytes Absolute Auto 1.5 1.2 - 4.9 X10*3/uL [facility] Monocytes Absolute Auto 0.4 0.1 - 1.2 X10*3/uL [facility] Eosinophils Absolute Auto 0.1 0.0 - 0.4 X10*3/uL [facility] Basophils Absolute Auto 0.0 0.0 - 0.2 X10*3/uL [facility] NRBC Abs Auto 0.000 0.0 - 0.012 X10*3/uL [facility] 07/27/2024 1:09 AM EST 07/27/2024 1:19 AM EST us Generic External Data Provider LAB BLOOD ORDERAB LES Final Result [facility] [address] [place] [phone] * (ABNORMAL) Comprehensive Metabolic Panel (07/27/2024 1:09 AM EST) Only the most recent of2 resultswithin the time period is included. Sodium 140 135 - 145 mmol/L [facility] Potassium 3.1(L) 3.3 - 5.1 mmol/L [facility] Chloride 105 96 - 108 mmol/L [facility] Carbon Dioxide 23 22 - 29 mmol/L [facility] Anion Gap 15 12 - 20 [facility] Urea Nitrogen (BUN) 11 9 - 16 mg/dL [facility] Creatinine, Serum 0.73 0.5 - 1.4 mg/dL [facility] Creatinine Clr Calc Pharmacy 98.5 [facility] Comment:Provided height and weight: 162.56 cm,83.5 kg.eGFR (calculated from the MDRD study equation) and eCrCl(calculated from the Cockcroft-Gault equation) are based ondifferent parameters and may not yield comparable results.If eCrCl result is absurd, please check patient'sheight/weight. Estimated Glomerular Filt Rate >60 [facility] Comment:Chronic Kidney Disea se: Estimated GFR < 60 mL/min/1.06x0Scrvbs Kidney Disease: Estimated GFR < 15 mL/min/1.73m2 Glucose 107 60 - 115 mg/dL [facility] Calcium 9.2 8.4 - 10.2 mg/dL [facility] Bilirubin, Total 0.5 0.0 - 1.0 mg/dL [facility] Aspartate Amino Transferase 48(H) 5 - 31 U/L [facility] Alanine Aminotransferase 32(H) 0 - 31 U/L [facility] Total Protein 8.5(H) 6.5 - 8.0 g/dL [facility] Albumin Level 3.7 3.5 - 5.0 g/dL [facility] Alkaline Phosphatase 151(H) 39 - 117 U/L [facility] 07/27/2024 1:09 AM EST 07/27/2024 1:19 AM EST us Generic External Data Provider LAB BLOOD ORDERAB LES Final Result Performing Organization Address City/State/[facility] Co de Phone Number [facility] [address] [place] [phone] * XR Hip 2 or 3 Views Right (07/12/2024 3:30 AM EST) Anatomical Region Laterality Modality Lower Extremities, Hip Right Radiograp hic Imaging 07/12/2024 3:30 AM EST Narrative 07/12/2024 4:26 AM EST ? [facility] ?[address] ?[place] [address] ?XRay Report ? Signed ? Patient: Ovidio Lacy,Ginette ?MR ?? #: [id number] ? : 1975 ?Acct:[id number] ? Age/Sex: 48 / F ?ADM Date: 12/12/24 ? Loc: HO.ED ? Attending Dr: ? Ordering Physician: Megan Pathak DO ?? Date of Service: 07/12/24 ?? Procedure(s): XR hip RT min 2V ?? Accession Number(s): [id number] ? cc: Megan Pathak DO; [facility] ? EXAMINATION: ?? XR HIP, RIGHT ? CLINICAL INFORMATION: ?? pain ? COMPARISON: ?? CT abdomen pelvis 02/20/2024. ? TECHNIQUE: ?? AP pelvis, AP and lateral radiograph of the right hip ? FINDINGS: ?? Pelvis appears intact. Sacrum appears intact. No sacral iliac joint ?? diastases. The visualized femurs are intact. No arthropathic changes of ?? the hips noted. Partial visualization is made of vascular stents within ?? the mid segment of the right thigh coursing beyond the image ?? [id number]. Surgical clip is projected over the left lower abdominal ?? quadrant. ? XR/XR hip RT min 2V ?? IMPRESSION: ?? *No acute abnormalities. ? *Partially visualized endovascular stent within the right thigh. ? *Normal appearance of the right hip. No arthropathic changes. ? Electronically signed by: ??Monty Alvarez MD ??07/12/2024 04:22 AM EST RP ? Dictated By: ?Monty Alvarez MD ? Signed By: ?<Electronically signed by Monty Alvarez MD in OV> ? 07/12/24 0422 ? DD/ 0330 ? TD/TT: 07/12/24 0350 ? Hides Soaker: EF ? Procedure Note Deepa Padgett - 07/12/[address] [address] XRay Report Signed Patient: Ginette ArceoMR #: [id number] : 1975Acct:[id number] Age/Sex: 48 / FADM Date: 07/12/24 Loc: HO.ED Attending Dr: Ordering Physician: Megan Pathak DO Date of Service: 07/12/24 Procedure(s): XR hip RT min 2V Accession Number(s): [id number] cc: ZoMegan GONZALEZ; [facility] EXAMINATION: XR HIP, RIGHT CLINICAL INFORMATION: pain COMPARISON: CT abdomen pelvis 02/20/2024. TECHNIQUE: AP pelvis, AP and lateral radiograph of the right hip FINDINGS: Pelvis appears intact. Sacrum appears intact. No sacral iliac joint diastases. The visualized femurs are intact. No arthropathic changes of the hips noted. Partial visualization is made of vascular stents within the mid segment of the right thigh coursing beyond the image [id number]. Surgical clip is projected over the left lower abdominal quadrant. XR/XR hip RT min 2V IMPRESSION: *No acute abnormalities. *Partially visualized endovascular stent within the right thigh. *Normal appearance of the right hip. No arthropathic changes. Electronically signed by: Monty Alvarez MD 07/12/2024 04:22 AM EST Dictated By: Monty Alvarez MD Signed By: <Electronically signed by Monty Alvarez MD in OV> 07/12/24 0422 DD/ 0330 TD/TT: 07/12/24 0350 Hides Soaker: EF [facility] External Provider IMG XR PROCEDURES Edited Result - Final * XR Elbow 3+ Views Left (06/12/2024 11:40 AM EST) Anatomical Region Laterality Modality Upper Extremities, Elbow Left Radiogr aphic Imaging 06/12/2024 11:4 0 AM EST Narrative 06/12/2024 12:25 PM EST ? [facility] ?[address] ?[place] [address] ?XRay Report ? Signed ? Patient: Ovidio Lacy,Ginette ?MR ?? #: [id number] ? : 1975 ?Acct:[id number] ? Age/Sex: 48 / F ?ADM Date: 11/12/24 ? Loc: HO.ED ? Attending Dr: ? Ordering Physician: Treasure Clemons ?? Date of Service: 06/12/24 ?? Procedure(s): XR elbow LT min 3V ?? Accession Number(s): [id number] ? cc: Mackenzie Estrada; Treasure Clemons ? EXAMINATION: ?? XR ELBOW, LEFT ? CLINICAL INFORMATION: ?? Swollen painful elbow ? COMPARISON: ?? None available. ? TECHNIQUE: ?? AP, lateral, and oblique views of the left elbow. ? FINDINGS: ?? No fracture. Alignment is anatomic. Joint spaces are maintained. No ?? bony erosions. ?? There is dense soft tissue swelling posterior elbow and diffuse, ?? heterogeneous soft tissue swelling about the distal arm and medial ?? proximal forearm. No radiopaque foreign body. ? XR/XR elbow LT min 3V ?? IMPRESSION: Extensive soft tissue infiltration distal arm, elbow and ?? proximal forearm, suspect cellulitis. No radiographic evidence of ?? osteomyelitis. ?? Consider cross-sectional imaging, with either IV contrast enhanced CT ?? or MRI. ? Electronically signed by: ??Clari Hardin MD ??06/12/2024 12:22 PM ?? EST ? Dictated By: ?Clari Hardin MD ? Signed By: ?<Electronically signed by Clari Hardin MD in OV> ?06/12/24 1222 ? DD/ 1140 ? TD/TT: 06/12/24 1150 ? Hides Soaker: ? Procedure Note Deepa Padgett - 06/12/2024 [place] [address] XRay Report Signed Patient: Ginette ArceoMR #: [id number] : 1975Acct:[id number] Age/Sex: 48 / FADM Date: 06/12/24 Loc: HO.ED Attending Dr: Ordering Physician: Treasure Clemons Date of Service: 06/12/24 Procedure(s): XR elbow LT min 3V Accession Number(s): [id number] cc: Mackenzie Estrada; Treasure Clemons EXAMINATION: XR ELBOW, LEFT CLINICAL INFORMATION: Swollen painful elbow COMPARISON: None available. TECHNIQUE: AP, lateral, and oblique views of the left elbow. FINDINGS: No fracture. Alignment is anatomic. Joint spaces are maintained. No bony erosions. There is dense soft tissue swelling posterior elbow and diffuse, heterogeneous soft tissue swelling about the distal arm and medial proximal forearm. No radiopaque foreign body. XR/XR elbow LT min 3V IMPRESSION: Extensive soft tissue infiltration distal arm, elbow and proximal forearm, suspect cellulitis. No radiographic evidence of osteomyelitis. Consider cross-sectional imaging, with either IV contrast enhanced CT or MRI. Electronically signed by: Clari Hardin MD 06/12/2024 12:22 PM EST Dictated By: Clari Hardin MD Signed By: <Electronically signed by Clari Hardin MD in OV> 06/12/24 1222 DD/ 1140 TD/TT: 06/12/24 1150 Hides Soaker: [facility] External Provider IMG XR PROCEDURES Final Result * (ABNORMAL) Sed Rate by Modified Roman (06/12/2024 11:32 AM EST) Erythrocyte Sedimentation Rate 91(H) 0 - 20 MM/HR [facility] Comment:Patients with polycy themia and many hemoglobin abnormalitiesmay have depressed sed rates whereas patients with anemiamay have elevated sed rates. 06/12/2024 11:3 2 AM EST 06/12/2024 11:39 AM EST Generic External Data Provider LAB BLOOD ORDERAB LES Final Result Performing Organization Address [facility] Co de Phone Number [facility] [address] [place] [phone] * (ABNORMAL) C-reactive Protein (06/12/2024 11:32 AM EST) C Reactive Protein 9.98(H) < or = 0.50 mg/dL [facility] 06/12/2024 11:3 2 AM EST 06/12/2024 11:39 AM EST Generic External Data Provider LAB BLOOD ORDERAB LES Final Result Performing Organization Address [facility] Co de Phone Number [facility] [address] [place] [address] [phone] * Uric acid (06/12/2024 11:32 AM EST) Uric Acid 4.6 2.4 - 5.7 mg/dL [facility] 06/12/2024 11:3 2 AM EST 06/12/2024 11:39 AM EST us Generic External Data Provider LAB BLOOD ORDERAB LES Final Result Performing Organization Address [facility] de Phone Number [facility] [address] [place] [address] [phone] * (ABNORMAL) B Type Natriuretic Peptide (BNP) (06/12/2024 11:32 AM EST) Only the most recent of2 resultswithin the time period is included. Pathologist [facility] B Type Natriuretic Peptide 266(H) <100 pg/mL [facility] Comment:For those patients w ho are being treated with Natrecor(nesiritide, recombinant BNP), BNP testing should beperformed at least two hours post treatment in order toensure that only endogenous levels of BNP are detected. 06/12/2024 11:3 2 AM EST 06/12/2024 11:39 AM EST us Generic External Data Provider LAB BLOOD ORDERAB LES Final Result Performing Organization Address [facility] Co de Phone Number [facility] [address] [place] [address] [phone] * Lactic Acid (06/12/2024 11:32 AM EST) Lactic Acid 1.6 0.5 - 2.0 mmol/L [facility] 06/12/2024 11:3 2 AM EST 06/12/2024 11:39 AM EST us Generic External Data Provider LAB BLOOD ORDERAB LES Final Result Performing Organization Address [facility] Co de Phone Number [facility] [address] [place] [address] [phone] * (ABNORMAL) Hepatic Function Panel (06/12/2024 11:32 AM EST) Pathologist [facility] Bilirubin, Total 0.6 0.0 - 1.0 mg/dL [facility] Bilirubin, Direct 0.3 0.0 - 0.5 mg/dL [facility] Aspartate Amino Transferase 65(H) 5 - 31 U/L [facility] Alanine Aminotransferase 37(H) 0 - 31 U/L [facility] Total Protein 8.9(H) 6.5 - 8.0 g/dL [facility] Albumin Level 3.9 3.5 - 5.0 g/dL [facility] Alkaline Phosphatase 117 39 - 117 U/L [facility] 06/12/2024 11:3 2 AM EST 06/12/2024 11:39 AM EST Generic External Data Provider LAB BLOOD ORDERAB LES Final Result Performing Organization Address [facility] de Phone Number [facility] [address] [place] [address] [phone] * (ABNORMAL) Basic Metabolic Panel (06/12/2024 10:57 AM EST) Pathologist [facility] Sodium 136 135 - 145 mmol/L [facility] Potassium 3.9 3.3 - 5.1 mmol/L [facility] Chloride 103 96 - 108 mmol/L [facility] Carbon Dioxide 24 22 - 29 mmol/L [facility] Anion Gap 13 12 - 20 [facility] Urea Nitrogen (BUN) 15 9 - 16 mg/dL [facility] Creatinine, Serum 0.84 0.5 - 1.4 mg/dL [facility] Creatinine Clr Calc Pharmacy 91.5 [facility] Comment:Provided height and weight: 167.64 cm,86.1 kg.eGFR (calculated from the MDRD study equation) and eCrCl(calculated from the Cockcroft-Gault equation) are based ondifferent parameters and may not yield comparable results.If eCrCl result is absurd, please check patient'sheight/weight. Estimated Glomerular Filt Rate >60 [facility] Comment:Chronic Kidney Disea se: Estimated GFR < 60 mL/min/1.41b7Cexrxq Kidney Disease: Estimated GFR < 15 mL/min/1.73m2 Glucose 134(H) 60 - 115 mg/dL [facility] Calcium 9.6 8.4 - 10.2 mg/dL [facility] 06/12/2024 10:5 7 AM EST 06/12/2024 11:04 AM EST Generic External Data Provider LAB BLOOD ORDERAB LES Final Result Performing Organization Address [facility] Co de Phone Number [facility] [address] [place] [address] [phone] * (ABNORMAL) Prothrombin Time-INR (06/08/2024 12:45 PM EST) Prothrombin Time 13.5(H) 10.9 - 12.4 SEC [facility] INTERNATIONAL NORM RATIO 1.2(H) 0.9 - 1.1 [facility] Comment:INTERNATIONAL NORMAL IZED RATIO (INR) REFERENCE RANGES Reference RangeFor patients not on anticoagulant therapy: 0.9 - 1.1INR ranges for oral anticoagulanttherapy:For prevention and treatment of venous thrombosis and pulmonary embolism: 2.0 - 3.0For acute myocardial infarction with aspirin therapy: 2.0 - 3.0For acute myocardial infarction without aspirin therapy: 3.0 - 4.0For patients with mechanical prosthetic heart valves: 2.5 - 3.5 06/08/2024 12:4 5 PM EST 06/08/2024 12:49 PM EST [employer] External Data Provider LAB BLOOD ORDERAB LES Final Result Performing Organization Address [facility] Co de Phone Number [facility] [address] [place] [address] [phone] * Magnesium (06/08/2024 12:45 PM EST) Magnesium 2.2 1.6 - 2.6 mg/dL [facility] 06/08/2024 12:4 5 PM EST 06/08/2024 12:49 PM EST us Generic External Data Provider LAB BLOOD ORDERAB LES Final Result [facility] [address] [place] [phone] * XR Chest 1 View (06/08/2024 12:37 PM EST) Anatomical Region Laterality Modality Chest Radiographic Rin ging 06/08/2024 12:3 7 PM EST Narrative 06/08/2024 1:13 PM EST ? [facility] ?[address] ?[place] [address] ?XRay Report ? Signed ? Patient: Ginette Arceo ?MR ?? #: [id number] ? : 1975 ?Acct:[id number] ? Age/Sex: 48 / F ?ADM Date: 06/08/24 ? Loc: HO.ED ? Attending Dr: ? Ordering Physician: Margo Sanchez ?? Date of Service: 06/08/24 ?? Procedure(s): XR chest 1V ?? Accession Number(s): [id number] ? cc: Mackenzie Estrada; Margo Sanchez ? EXAMINATION: ?? XR CHEST ? CLINICAL INFORMATION: ?? cp ? COMPARISON: ?? X-ray dated May 26, 2024 ? TECHNIQUE: ?? Frontal view of the chest was obtained. ? FINDINGS: ?? No consolidation, pleural effusion or pneumothorax. Cardiomediastinal ?? silhouette is normal in size. Multilevel thoracic spondylosis. S-shaped ?? curvature of the thoracic spine which could be positional. ? Vascular clips in the right axillary/right lateral soft tissues breast ?? region. ? XR/XR chest 1V ?? IMPRESSION: ?? No acute airspace disease. ? Electronically signed by: ??Madan Tijerina MD ??06/08/2024 01:10 PM ?? EST RP ? Dictated By: ?Madan Nye MD ? Signed By: ?<Electronically signed by Madan Rose MD in OV> ? 06/08/24 1310 ? DD/ 1237 ? TD/TT: 06/08/24 1257 ? Hides Soaker: ? Procedure Note Donrere, Image - 06/08/[address] [address] XRay Report Signed Patient: Ginette ArceoMR #: [id number] : 1975Acct:[id number] Age/Sex: 48 / FADM Date: 06/08/24 Loc: .ED Attending Dr: Ordering Physician: Margo Sanchez Date of Service: 06/08/24 Procedure(s): XR chest 1V Accession Number(s): [id number] cc: Mackenzie Esrtada; Margo Sanchez EXAMINATION: XR CHEST CLINICAL INFORMATION: cp COMPARISON: X-ray dated May 26, 2024 TECHNIQUE: Frontal view of the chest was obtained. FINDINGS: No consolidation, pleural effusion or pneumothorax. Cardiomediastinal silhouette is normal in size. Multilevel thoracic spondylosis. S-shaped curvature of the thoracic spine which could be positional. Vascular clips in the right axillary/right lateral soft tissues breast region. XR/XR chest 1V IMPRESSION: No acute airspace disease. Electronically signed by: Madan Tijerina MD 06/08/2024 01:10 PM EST Dictated By: Madan Nye MD Signed By: <Electronically signed by Madan Rose MDin OV> 06/08/24 1310 DD/ 1237 TD/TT: 06/08/24 1257 Hides Soaker: us [facility] External Provider IMG XR PROCEDURES Final Result * Hepatitis C Ab (04/11/2024 10:26 AM EDT) Hepatitis C Antibody Nonreactive Nonreactive [facility] Comment:Antibodies to HCV no t detected; does not exclude early acuteHCV infection. Blood Venous blood specimen / Unknown 04/11/2024 10:26 AM EDT 04/11/2024 11:19 AM EDT Mackenzie Estrada MD LAB BLOOD ORDERABLES Final Res ult Performing Organization Address City/[facility]/ZIP Co de Phone Number [facility] [address] [place] [phone] * HIV-1/2 Antigen and Antibodies, Fourth Generation, with Reflexes (04/11/2024 10:26 AM EDT) HIV AB/AG Nonreactive Nonreactive [facility] Comment:HIV-1 p24 Ag and/or HIV-1/HIV-2 Ab not detected.A test result that is nonreactive does not exclude thepossibility of exposure to or infection with HIV-1 and/orHIV-2. Nonreactive results in this assay for individualswith prior exposure to HIV-1 and/or HIV-2 may be due toantigen and antibody levels that are below the limit ofdetection of this assay.The [employer] HIV Ag/Ab Combo assay result andsupplemental assay results should be interpreted inconjunction with the patient's clinical presentation,history and other laboratory results. If the results areinconsistent with clinical evidence, additional testing issuggested to confirm the result. Blood Venous blood specimen / Unknown 04/11/2024 10:26 AM EDT 04/11/2024 11:19 AM EDT Mackenzie Estrada MD LAB BLOOD ORDERABLES Final Res ult Performing Organization Address City/[facility]/ZIP Co de Phone Number [facility] [address] [place] [phone] * HPV mRNA E6/E7 w/Reflex to HPV Genotypes 16, 18/45 (09/29/2023 12:26 PM EST) HPV nRNA E6/E7 Not Detected Not Detected [facility] Comment:Methodology: Transcr iption-Mediated AmplificationThis assay detects E6/E7 viral messenger RNA (mRNA) from 14high-risk HPV types (16,18,31,33,35,39,45,51,52,56,58,59,66,68).Cervical sources are required for HPV testing.If a vaginal source from a patient who has had atotal hysterectomy with removal of cervix wassubmitted, please contact the testing laboratoryfor alternative testing options.For additional information, please refer tohttp://education.clipsync/faq/RWP368x6(This link if provided for information/educational purposes only.)THIS TEST WAS PERFORMED AT:[facility] [place] [phone] GALVAN MD HPV mRNA E6/E7 [facility] HPV 16 RNA [facility] HPV 18/45 RNA [facility] 09/29/2023 12:2 6 PM EST 09/30/2023 11:30 AM EST Mackenzie Estrada MD LAB CYTOLOGY ORDERABLES Final Result Performing Organization Address [facility]/State/[facility] Co de Phone Number [facility] [address] [place] [phone] * Pap Smear (09/29/2023 12:26 PM EST) 09/29/2023 12:2 6 PM EST 09/30/2023 11:30 AM EST Narrative [facility] - 10/12/2023 4:18 PM EDT ----- ------- Name: Ovidio LacyGinette ?Age/Sex: 48/F ? : 1975 Unit#: [id number] ?? Attend Dr: Mackenzie Estrada ?Re09/29/23 ?Status: DEP REF ? Location: HO.HHCX ? Disch: ? ----- ------- SPEC : [id number] ? RECD: 09/30/23 ? STATUS: ??SOUT ? REQ NUM: [id number] ? BHAVIN: 09/29/23-1226 ? SUBM DR: Mackenzie Estrada ? ENTERED: ??09/30/238 ?SP TYPE: Pap Smr ?OTHR DR: ? ORDERED: ??Pap Smear ? Interpretation ?? Satisfactory for evaluation. ?? Negative for intraepithelial lesion or malignancy. ?HPV mRNA E6/E7: ?NOT DETECTED ? This assay detects E6/E7 viral messenger RNA (mRNA) from 14 high-risk HPV types (16, 18, ?? 31, 33, 35, 39, 45, 51, 52, 56, 58, 59, 66, 68) ?? HPV testing performed by [employer], [place], [place]. ??See reference laboratory ?? portion of the EMR for entire report. ?Clinical Information LMP: Heavy menstrual bleeding past two weeks Previous PAP test: Unknown date/findings Other history: ? Material Received ?? ThinPrep-Cervical ----- ------- Signed (signature on file) BARB Hawley (ASCP) 10/12/23 2548 ? ----- ------- ? END OF REPORT ? us Mackenzie Estrada MD LAB CYTOLOGY ORDERABLES Final Result [facility] [address] [place] [phone] * Mammography Report 1 (10/09/2021 12:05 PM EST) Anatomical Region Laterality Modality Breast Bilateral Mammography 10/09/2021 12:0 5 PM EST Narrative 10/12/2021 2:06 PM EDT Refer to the Notes tab for result details [facility] Procedure: Mammography Report 1 Procedure Note Provider, Waqar, - 10/24/2022 Refer to the Notes tab for result details [facility] Procedure: Mammography Report 1 Mackenzie Estrada MD IMG BI PROCEDURES Final Result * Colonoscopy (10/28/2017) Colonoscopy Normal Normal Narrative Cecilia Henriquez - 10/28/2017 Recommended 10 year follow up ([facility]) Historical Provider HEALTH MAINTENANCE Edited Result - Final from Last 3 Months or Most Recently Relevant to Health Maintenance Insurance [facility] C[facility] STAND ADULT Care Teams Clock And Watch Hands Dipper Relationship Specialty Start Date End Date Mackenzie Estrada MD [address] [place] [phone] PCP - General Family Medicine 07/10/20
--- OUTSIDE RECORDS SUMMARY | 2024-08-27 13:16 | XMS_ITS | Encounter Summary ---
Author Organization [employer] Address [address] [place] [address] Care Team Providers Care Regulatory Lead Name Role Phone Mackenzie Estrada MD Primary Care Provider [phone] Reason for Visit * Reason Comments Med Refill Encounter Details Date Type Department Care Team ([facility] Contact Info) Description 07/27/2023 Refill [facility] MEDICINE [address] [place], [place] [phone] Name, MD Mark [address] [place] [address] Pain in both hands Social History Tobacco [...] Description 09/11/2024 9:45 AM EST Office Visit [facility] [address] [place] [address] 09/24/2024 3:15 PM EST Office Visit [facility] [address] [place] [phone] Mackenzie Estrada MD [address] [place] [address] 10/01/2024 10:00 AM EST Office Visit [facility] OPTOMETRY [address] [place] [address] Kailash, Libra, OD [address] [place] [address] documented as of this encounter Goals Goal Patient Goal Type Associated Problems Recent Progress Patient-Stated? Author Quit using tobacco (cigarettes, smokeless, etc) Tobacco Use No Corey Lin, PharmD documented as of this encounter Visit Diagnoses Diagnosis Pain in both hands documented in this encounter Care Teams Regulatory Lead Relationship Specialty Start Date End Date Mackenzie Estrada MD [address] [place] [phone] PCP - General Family Medicine 07/10/20 documented as of this encounter
--- OUTSIDE RECORDS SUMMARY | 2024-08-27 13:16 | XMS_ITS | Encounter Summary ---
Author Organization [employer] [facility] Address [address] [facility] [address] [place] [address] Care Team Providers Care Cinder Pit Crane Operator Name Role Phone Mackenzie Estrada MD Primary Care Provider [phone] Reason for Visit * Reason Comments Med Refill Encounter Details Date Type Department Care Team ([facility] Contact Info) Description 07/28/2022 Refill [facility] MEDICINE [address] [place] [address] Mackenzie Estrada MD [address] [place] [address] Pain in both hands Social History Tobacco Use Types Packs/Day Years Used Date Smoking Tobacco: Every Day Cigarettes Smokeless Tobacco: Never Comments Unknown Sex and Gender Information Value [...] suspected to have Coronavirus/COVID-19? No / Unsure 07/23/2022 9:42 AM EST documented as of this encounter Miscellaneous Notes * Telephone Encounter - Kaylene Samano RN - 07/29/2022 10:02 AM EST Duplicate request, auto generated. Script sent 07/29/22 documented in this encounter Plan of Treatment Upcoming Encounters Date Type Department Care Team (Late Contact Info) Description 09/11/2024 9:45 AM EST Office Visit [facility] MEDICINE [address] [place] [address] 09/24/2024 3:15 PM EST Office Visit [facility] MEDICINE [address] [place] [address] Mackenzie Estrada MD [address] [place] [address] 10/01/2024 10:00 AM EST Office Visit [facility] OPTOMETRY [address] [place] [phone] Libra Linder, OD [address] [place] [address] documented as of this encounter Visit Diagnoses Diagnosis Pain in both hands documented in this encounter Care Teams Cinder Pit Crane Operator Relationship Specialty Start Date End Date Mackenzie Estrada MD [address] [place] [address] PCP - General Family Medicine 07/10/20 documented as of this encounter
--- OUTSIDE RECORDS SUMMARY | 2024-08-27 13:16 | XMS_ITS | Encounter Summary ---
Author Organization [employer] Address [address] [place] [address] Care Team Providers Care Building Services Technician Name Role Phone Mackenzie Estrada MD Primary Care Provider [phone] Reason for Visit * Reason Comments Med Refill Encounter Details Date Type Department Care Team ([facility] Contact Info) Description 07/21/2023 Refill [facility] MED[facility]INE [address] [place], [place] [phone] Name, MD Mark [address] [place] [address] Pain in both hands Social History Tobacco [...] Description 09/11/2024 9:45 AM EST Office Visit [facility] MEDICINE [address] [place] [address] 09/24/2024 3:15 PM EST Office Visit [facility] MED[facility]INE [address] [place] [phone] Mackenzie Estrada MD [address] [place] [address] 10/01/2024 10:00 AM EST Office Visit [facility] OPTOMETRY [address] [place] [address] Kailash, Libra, OD [address] [place] [address] documented as of this encounter Goals Goal Patient Goal Type Associated Problems Recent Progress Patient-Stated? Author Quit using tobacco (cigarettes, smokeless, etc) Tobacco Use No Corey Lin, PharmD documented as of this encounter Visit Diagnoses Diagnosis Pain in both hands documented in this encounter Care Teams Building Services Technician Relationship Specialty Start Date End Date Mackenzie Estrada MD [address] [place] [phone] PCP - General Family Medicine 07/10/20 documented as of this encounter
--- OUTSIDE RECORDS SUMMARY | 2024-08-27 13:16 | XMS_ITS | Encounter Summary ---
Author Organization [employer] Address [address] [facility] 7t [place] [address] Care Team Providers Care Dental Cream Maker Name Role Phone Mackenzie Estrada MD Primary Care Provider [phone] Reason for Visit * Reason Onset Date Comments Triage 11/10/2022 Encounter Details Date Type Department Care Team ([facility] Contact Info) Description 11/10/2022 Telephone [facility] MEDICINE [address] [place], [place] [phone] Mackenzie Estrada MD [address] [place], [place] [phone] Triage Social History Tobacco Use Types Packs/Day Years [...] suspected to have Coronavirus/COVID-19? No / Unsure 10/18/2022 2:12 PM EDT documented as of this encounter Miscellaneous Notes * Telephone Encounter - Lucia Hyde RN - 11/11/2022 11:10 AM EDT TC to [phone] via [employer] interpreters in regards to below message. Pt reports she went to [facility] since [facility] did not return her call. RN informed pt triage nurses attempted to call pt x2 however pt did not answer. RN reviewed [facility] [place] and pt presented to ED with L wrist pain radiating to L chest and also a burning rash under breast and fever of 100.5. Pt had chest Xray performed which was WNL and EKG which was WNL when compared to previous EKG. Pt was Rx'd flexeril as pt is OUT of percocet per ED note and not due until 11/19 and also nystatin powder for yeast infection under breasts. Ptreports she went to the pharmacy and picked up the medication Flexeril however she has not been able to pick up attendant the nystatin medication because [facility] did not have it. RN asked if [facility] informed the pt they were going to order it however pt was not sure. RN placed pt on hold and called [facility] pharmacy who reports it is supposed to be arriving in store today and pt should call around 3pm to inquire if it was received and ready for pick up attendant. Pt verbalized understanding. RN advised pt if her rash does not resolve with medication and her pain does not resolve to call [facility] to schedule an appt for further evaluation. Pt verbalized understanding. Pt to F/U PRN. RN has printed ED note and placed in scan bin * Telephone Encounter - Chika Ingram LPN - 11/10/2022 2:30 PM EDT Triage call returned to patient with [place] director of donor relations [phone] to listed number x 2 no answer. Left message to return call to [phone]. Team Nurses tasked to follow with patient as call listed high priority. Protocol Used: No Contact or Duplicate Contact Call (Adult) Protocol-Based Disposition: No Contact Call Positive Triage Questions: * No answer. First attempt to contact caller. Follow-up call scheduled within 15 minutes. * Message left on identified voicemail * Second attempt to contact caller AND no contact made. Phone number verified. * All higher-acuity triage questions were negative * Telephone Encounter - Lesa Livingston - 11/10/2022 1:24 PM EDT Symptom: Arm Pain - Not From Injury Outcome: Schedule an urgent appointment (within 4 hours) or talk to a nurse or provider soon Reason: Swelling The caller accepted this outcome documented in this encounter Plan of Treatment Upcoming Encounters Date Type Department Care Team (Late st Contact Info) Description 09/11/2024 9:45 AM EST Office Visit [facility] MEDICINE [address] [place] [address] 09/24/2024 3:15 PM EST Office Visit [facility] MEDICINE [address] [place] [address] Mackenzie Estrada MD [address] [place] [address] 10/01/2024 10:00 AM EST Office Visit [facility] OPTOMETRY [address] [place] [address] Kailash, Libra, OD [address] [place] [address] documented as of this encounter Visit Diagnoses Not on filedocumented in this encounter Care Teams Dental Cream Maker Relationship Specialty Start Date End Date Mackenzie Estrada MD [address] [place] [address] PCP - General Family Medicine 07/10/20 documented as of this encounter
--- OUTSIDE RECORDS SUMMARY | 2024-08-27 13:16 | XMS_ITS | Encounter Summary ---
Author Organization [employer] Address [address] [facility] [address] 7t [place] [address] Care Team Providers Care Gastroenterology Professor Name Role Phone Mackenzie Estrada MD Primary Care Provider [phone] Encounter Details Date Type Department Care Team (Late st Contact Info) Description 04/10/2024 Orders Only [facility] MEDICINE [address] [place], [place] [phone] Mackenzie Estrada MD [address] [place], [place] [phone] Social History Tobacco Use Types Packs/Day Years [...] [facility] MEDICINE [address] [place] [address] 09/24/2024 3:15 PM EST Office Visit [facility] MEDICINE [address] [place] [address] Mackenzie Estrada MD [address] [place] [address] 10/01/2024 10:00 AM EST Office Visit [facility] OPTOMETRY [address] [place] [address] Kailash, Libra, OD [address] [place] [address] documented as of this encounter Goals Goal Patient Goal Type Associated Problems Recent Progress Patient-Stated? Author Quit using tobacco (cigarettes, smokeless, etc) Tobacco Use No Corey Lin, Baliey documented as of this encounter Visit Diagnoses Not on filedocumented in this encounter Care Teams Gastroenterology Professor Relationship Specialty Start Date End Date Mackenzie Estrada MD [address] [place] [address] PCP - General Family Medicine 07/10/20 documented as of this encounter
--- OUTSIDE RECORDS SUMMARY | 2024-08-27 13:16 | XMS_ITS | Encounter Summary ---
Author Organization [employer] Address [address] 7[address] [place] [address] Care Team Providers Care Teacher Of The Sight Impaired Name Role Phone Mackenzie Estrada MD Primary Care Provider [phone] Reason for Visit * Reason Onset Date Comments Appointment Request 08/16/2023 Encounter Details Date Type Department Care Team ([facility] Contact Info) Description 08/16/2023 Telephone [facility] MEDICINE [address] [place], [place] [phone] Mackenzie Estrada MD [address] [place] [address] Appointment Request Social History Tobacco Use Types [...] Miscellaneous Notes * Telephone Encounter - Rigo Juan - 08/16/2023 10:35 AM EST Tc from pt confirming that she will be attending the appt tomorrow 08/17. If any questions you can contact pt with number listed in message prior. * Telephone Encounter - Amada Chance - 08/16/2023 9:39 AM EST Tc from pt requesting if there is anything available for today to be seen today. Please contact pt @ [phone] [place] Islander Speaker documented in this encounter Plan of Treatment Upcoming Encounters Date Type Department Care Team (Late st Contact Info) Description 09/11/2024 9:45 AM EST Office Visit [facility] MEDICINE [address] [place] [address] 09/24/2024 3:15 PM EST Office Visit [facility] MEDICINE [address] [place] [address] Mackenzie Estrada MD [address] [place] [address] 10/01/2024 10:00 AM EST Office Visit [facility] OPTOMETRY [address] [place] [address] Libra Linder, OD [address] [place] [address] documented as of this encounter Goals Goal Patient Goal Type Associated Problems Recent Progress Patient-Stated? Author Quit using tobacco (cigarettes, smokeless, etc) Tobacco Use No Corey Lin, KelechiD documented as of this encounter Visit Diagnoses Not on filedocumented in this encounter Care Teams Teacher Of The Sight Impaired Relationship Specialty Start Date End Date Mackenzie Estrada MD [address] [place] [address] PCP - General Family Medicine 07/10/20 documented as of this encounter
--- OUTSIDE RECORDS SUMMARY | 2024-08-27 13:16 | XMS_ITS | Encounter Summary ---
Author Organization [employer] Address [address] [facility] [address] 7t [place] [address] Care Team Providers Care Molecular Biologist Name Role Phone Mackenzie Estrada MD Primary Care Provider [phone] Reason for Visit * Reason Comments Med Refill Encounter Details Date Type Department Care Team ([facility] st Contact Info) Description 06/03/2023 Refill [facility] MEDICINE [address] [place], [place] [phone] Mackenzie Estrada MD [address] [place], [place] [phone] Pain in both hands Social History Tobacco [...] Description 09/11/2024 9:45 AM EST Office Visit [facility] MEDICINE [address] [place] [address] 09/24/2024 3:15 PM EST Office Visit [facility] MEDICINE [address] [place] [address] Mackenzie Estrada MD [address] [place] [address] 10/01/2024 10:00 AM EST Office Visit [facility] OPTOMETRY [address] [place] [address] Kailash, Libra, OD [address] [place] [address] documented as of this encounter Goals Goal Patient Goal Type Associated Problems Recent Progress Patient-Stated? Author Quit using tobacco (cigarettes, smokeless, etc) Tobacco Use No Corey Lin, PharmD documented as of this encounter Visit Diagnoses Diagnosis Pain in both hands documented in this encounter Care Teams Molecular Biologist Relationship Specialty Start Date End Date Mackenzie Estrada MD [address] [place] [address] PCP - General Family Medicine 07/10/20 documented as of this encounter
--- OUTSIDE RECORDS SUMMARY | 2024-08-27 13:16 | XMS_ITS | Encounter Summary ---
Author Organization [facility] Address [address] [facility] 7t [place] [address] Care Team Providers Care Coding And Reimbursement Specialist Name Role Phone Mackenzie Estrada MD Primary Care Provider [phone] Encounter Details Date Type Department Care Team ([facility] Contact Info) Description 03/29/2023 Abstract [facility] MEDICINE [address] [place] [address] Ceciila Henriquez Social History Tobacco Use Types Packs/Day Years Used Date Smoking Tobacco: Every Day Cigarettes Passive Smoke Exposure: Never Smokeless Tobacco: Never Alcohol Use Standard Drinks/Week Comments Never 0 (1 standard drink = 0.6 oz pur e alcohol) PHQ-2 Answer Date Recorded Patient Health Questionnaire-2 Score 0 03/14/2023 Depression Answer Date Recorded Patient Health Questionnaire-2 Score 0 03/14/2023 Comments Unknown Sex and Gender Information Value Date Recorded Sex Assigned at Female 05/31/2022 10:18 AM EDT Legal Sex Female 10:18 AM EDT Gender Identity Female 05/31/2022 10:18 AM EDT Sexual Orientation Straight 05/31/2022 10 :18 AM EDT documented as of this encounter Plan of Treatment Upcoming Encounters Date Type Department Care Team ([facility] Contact Info) Description 09/11/2024 9:45 AM EST Office Visit [facility] MEDICINE [address] [place], [place] [phone] 09/24/2024 3:15 PM EST Office Visit [facility] MEDICINE [address] [place] [address] Mackenzie Estrada MD [address] [place] [address] 10/01/2024 10:00 AM EST Office Visit [facility] OPTOMETRY [address] [place] [address] Libra Linder, OD [address] [place] [address] documented as of this encounter Procedures Procedure Name Priority Date/Time Associated Diagnosis Comments COLONOSCOPY Routine 10/28/2017 documented in this encounter Results * Colonoscopy (10/28/2017) Colonoscopy Normal Normal Narrative Cecilia Henriquez - 10/28/2017 Recommended 10 year follow up ([facility]) [place] Historical Provider Melody Management MAINTENANCE Edited Result - Final documented in this encounter Visit Diagnoses Not on filedocumented in this encounter Care Teams Coding And Reimbursement Specialist Relationship Specialty Start Date End Date Mackenzie Estrada MD [address] [place] [address] PCP - General Family Medicine 07/10/20 documented as of this encounter
--- OUTSIDE RECORDS SUMMARY | 2024-08-27 13:17 | XMS_ITS | Clinical Summary ---
Author Organization [facility] Address [address] [place] [address] Support Name Relationship Address Phone Brayden Hernandez Emergency Contact [address] [place] [address] Care Team Providers Care Bpm Analyst Name Role Phone Abdullahi Lizarraga MD Primary Care Provider Allergies Active Allergy Reactions Criticality Noted Date Comments Adhesive Tape 04/04/2020 Morphine 01/17/2017 Medications Medication Sig Dispensed Refills Start Date End Date Status ALPRAZolam (XANAX) 1 MG tablet Take 2 mg by mouth every night at bedtime as needed for sleep. 0 Active benztropine (COGENTIN) 0.5 MG tablet Take 0.5 mg by mouth 2 (two) times a day. 0 Active risperiDONE (RISPERDAL) 0.5 MG tablet Take 0.5 mg by mouth 2 (two) times a day. 0 Active traZODone (DESYREL) 100 MG tablet Take 100 mg by mouth every night at bedtime. 0 Active sertraline (ZOLOFT) 100 MG tablet Take 100 mg by mouth daily. 0 Active leflunomide (ARAVA) 10 MG tablet Take 20 mg by mouth daily. 0 Active methotrexate 2.5 MG tablet Take by mouth 3 (three) times a week. 0 Active Calcium Carb-Cholecalciferol (CALCIUM 600 + D) 600-200 MG-UNIT TABS Take by mouth. 0 Active folic acid (FOLVITE) tablet 1 mg Take 1 mg by mouth daily. 0 Active omeprazole (PRILOSEC) 20 MG capsule Take 40 mg by mouth daily. 0 Active clarithromycin (BIAXIN) 500 MG tablet Take 500 mg by mouth 2 (two) times a day. 0 Active nicotine (NICODERM CQ) 7 MG/24HR Place 1 patch onto the skin daily. 0 Active ELIQUIS 5 MG TABS tablet TAKE 1 TABLET BY MOUTH TWICE DAILY IN THE MORNING AND IN THE EVENING 0 03/03/2020 Active furosemide (LASIX) 20 MG tablet Take 1 tablet (20 mg total) by mouth daily. 7 tablet 0 12/05/2020 Active Active Problems Problem Noted Date Diagnosed Date Leg edema 12/05/2020 Acute deep vein thrombosis ( DVT) of brachial vein of right upper extremity 03/07/2020 Lymphadenopathy, generalized 03/07/2020 Migraine without status migrainosus, not intract able 12/06/2017 Paresthesia and pain of left extremity 8 Nodular sclerosis Hodgkin ly mphoma of lymph nodes of multiple regions 06/03/2017 Gastroesophageal reflux disease 06/03/2017 Absolute anemia 06/03/2017 Arthritis, senescent 06/03/2017 Lymphadenopathy of left cervical region 06/03/20 17 Rheumatoid arthritis involving multiple sites Recurrent major depressive disorder, in remissio n 06/03/2017 Anxiety 06/03/2017 Social History Tobacco Use Types Packs/Day Years Used Date Smoking Tobacco: Every Day Cigarettes 0.3 Smokeless Tobacco: Never Alcohol Use Standard Drinks/Week Comments No 0 (1 standard drink = 0.6 oz pur e alcohol) Sex and Gender Information Value Date Recorded Sex Assigned at Not on file Gender Identity Not on file Sexual Orientation Not on file Last Filed Vital Signs Vital Sign Reading Time Taken Comments Blood Pressure 133/78 12/05/2020 11:19 AM EDT Pulse 67 12/05/2020 11:19 AM EDT Temperature 36.7 ??C (98.1 ??F) 12/05/2020 11:19 AM E DT Respiratory Rate - - Oxygen Saturation 100% 12/05/2020 11:19 AM EDT Inhaled Oxygen Concentration - - Weight 93.2 kg (205 lb 6.4 oz) 12/05/2020 11:19 AM EDT Height 162.6 cm (5' 4 ) 12/05/2020 11:19 AM EDT Body Mass Index 35.26 12/05/2020 11:19 AM EDT Plan of Treatment Health Maintenance Due Date Last Done Comments Hepatitis B Vaccines (1 of 3 - 3-dose series) 1976 Hepatitis C Screening 1976 COVID-19 Vaccine (#1) 1981 Pneumococcal Vaccine (1 of 2 - PCV) 1982 Depression Screening 1988 BMI Counseling 1994 Preventative Health Evaluation 1994 Tobacco Cessation Counseling 1994 DTap / Tdap / Td (1 - Tdap) 1995 Cervical Cancer Screening (P ap Smear) 1997 Colon Cancer Screening (Colonoscopy) 2021 Influenza Vaccine (#1) 2024 RSV Ped < 20 months Aged Out No longe r eligible based on patient's age to complete this topic Care Teams Bpm Analyst Relationship Specialty Start Date End Date Abdullahi Lizarraga MD [address] [place] [address] PCP - General Nephrology 03/10/18
== END 2024-08-27 09:52 | disposition home or self-care (01) ==
PROVIDERS: PCP General Practice; Visit Provider Physician Assistant
DX: M77.8 Other enthesopathies, not elsewhere classified (principal); M79.18 Myalgia, other site
CPT/HCPCS: 20610; 99213

== ENCOUNTER → 2024-08-27 08:56 | Outpatient (BNVA) | payer MEDICAID, SELFPAY | PROVIDERS: PCP General Practice; Visit Provider Physician Assistant | DX: M77.8 Other enthesopathies, not elsewhere classified (principal); M79.18 Myalgia, other site; R19.8 Other specified symptoms and signs involving the digestive system and abdomen | CPT/HCPCS: 20610; 99212; J1010; J2003 ==

== ENCOUNTER 2024-08-27 10:03 | Outpatient (AMB) | payer MEDICAID, SELFPAY ==
[2024-08-27 10:09] VITALS: BP 115/76; PULSE 71; BMI 29.1
--- NOTE | 2024-08-27 10:09 | A.OFFVIS_ITS ---
Vital Signs 08/27/24 10:09 Height 5 ft 6 in Weight 180 lb 5.41 oz BMI 29.1 BP 115/76 Blood Pressure Location Rt brachial Position Sitting Pulse 71 Intake Visit Reasons: Follow up 4 months Intake Note: Patient in office today in 4 months follow up of constipation. CC: Patient reports pain from hemorrhoids, 2 days without a BM, nausea, and abd pain. [place] Required: Yes Accompanied by: Self / Same As Patient Allergies almond [ALMONDS] Allergy (Severe, Verified 08/27/24 10:14) ANAPHYLAXIS adhesive tape [ADHESIVE TAPE] Allergy (Intermediate, Verified 08/27/24 10:14) RASH morphine [MORPHINE] Allergy (Intermediate, Verified 08/27/24 10:14) GI UPSET, difficulty breathing leflunomide Adverse Reaction (Intermediate, Verified 08/27/24 10:14) twitching tramadol [TRAMADOL] Adverse Reaction (Unknown, Verified 08/27/24 10:14) NAUSEA & VOMITING HPI HPI Follow up 4 months: Details: 49 yr old f with hx of SLE<RA< lymphoma, hx of DVT, being seen for f/u of Gi sx RECAP She had c/o pain lower chest and epigastrium for 5-6 months pain can go to the neck feels like a squeezing sensation, 10/10 in severity at times the pain can come on with sitting still watching TV, not worse with exertion she does have occ vomiting, and nausea usu in the morning pain wakes her at night food doesn;t affect denies heartburn, occ constipation, no blood in stool \ admits to dysphagia, since she had a biopsy done in her neck she was given gabapentin and referred pain management, her belkys was increased by dr mann, i suspected strong myofascial component TESTS: EGD/colon 09/2017- normal us 2017- gallstones, enlarged liver CT 2018- absent GB, abn fallopian tube, ovarian cyst. EGD 05/2019: with GEJ inflammation, LA grade A esophagitis, dilation with small tear \advised on PPI complaince and correct taking of medication Note labs with low b12 04/2019--156--repeat with supplements was >300 , gliadin ab pos At follow up 07/2019: swallowing was better, no choking, squeezing in lower chest, had been referred to cards for eval LABS: repeat mild celiac ab elevation, celiac gene test was neg for mutation ECG--06/2019--no signs of epicarditis, LAD, no acute changes seen Ba swallow 03/2021-- thin cervical esophageal web and tab held up at [facility] labs 09/2021-- nml LFt, HGB borderline Office 09/2021-- c/o chest pain, abdominal pain, sharp RUq pain where GB use to be and diarrhea pain and symptoms can be worse with rice or meat she still had some trouble swallowing EGD 10/08/21 bile acid reflux gastropathy esophagitis peptic duodenitis was given trial of ursodiol EGD 11/2022-- active esophagitis, dilation done US 12/2022-- fatty liver She was admitted for rectal bleeding and had egd/colo rectal hemorrhoids noted and bile acid gastritis bx neg for amyloid Interim: She had cardiac issues and stent placed recently started orecia for her RA and it has helped her joints she has suprpaubic discomfort, worse with bowel movements no blood in stools stools are hard, taking colace but not every day she is drinking a good amount of fluids gen malaise EXAM: GENERAL: The patient is frail VITAL SIGNS:see workflow HEENT: Nonicteric sclerae, PERRLA, EOMI. Oropharynx clear. Moist mucous membranes. Conjunctivae appear well perfused. No thyroid mass. CHEST: Chest wall is nontender. HEART: Regular rate and rhythm without murmurs. LUNGS: Clear to auscultation bilaterally. ABDOMEN: Soft, positive bowel sounds, non tender , no organomegaly.no flank tenderness SKIN: dry NEUROLOGIC: Cranial nerves II-XII intact without motor/sensory deficit. Joints: --using stick a/P: 1/ dysphagia -on PPI which helps, dilation helped 2/ polyarthropathy and synovitis -partial response 3/ bile acid reflux gastritis -on urosdiol PLAN: 1/ advised on colace BID scheduled, and can add prune juice with tumeric 2/ check [facility] Medical History Iron deficiency Seropositive rheumatoid arthritis Skin lesion Anxiety Achilles tendinitis Superficial femoral artery occlusion Knee pain, left Depression Hx of peripheral pulmonary artery stenosis PAD (peripheral artery disease) History of chemotherapy Cancer of heart Bone cancer Lung cancer Bleeding hemorrhoid Degeneration, intervertebral disc, lumbar Chronic GERD Degeneration of intervertebral disc at C4-C5 level Osteoarthritis of spine with radiculopathy, lumbar region Fibromyalgia Esophageal dysphagia Vitamin D deficiency Systemic lupus erythematosus Seropositive rheumatoid arthritis Rheumatoid arthritis involving multiple sites Gallstones Stress incontinence in female Nocturia Urgency-frequency syndrome De Quervain's disease (tenosynovitis) Depressive disorder Acute arthritis Hodgkin disease Surgical History History of heart surgery History of surgical removal of skin lesion (~07/13/23) History of angioplasty of vein History of biopsy H/O tubal ligation Hx of endoscopy Hx laparoscopic cholecystectomy Hx of colonoscopy History of esophagogastroduodenoscopy (EGD) History of repair of inguinal hernia History of lymph node dissection of left axilla Family History Maternal Grandmother Ovarian cancer Social History Household Members: Significant Other Housing: Apartment Are you a primary healthcare customer service to a significant other at home: No Alcohol intake: never Comment: son at bedside Patient Tobacco Use Status: Never used Tobacco Tobacco use type: Cigarette Cigarette Packs Per Day: 1 Cigarettes Per Day: 20.0 Substance Use Type: Marijuana Advance Directives Date on File: 02/24/24 service: No Current occupational status: disabled 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
--- OUTSIDE RECORDS SUMMARY | 2024-08-27 14:37 | XMS_ITS | Encounter Summary ---
Author Organization [employer] Address [address] [facility] [address] 7[address] [place] [address] Care Team Providers Care Media Services Director Name Role Phone Mackenzie Estrada MD Primary Care Provider [phone] Reason for Visit * Reason Onset Date Comments Appointment Request 08/16/2024 Encounter Details Date Type Department Care Team ([facility] Contact Info) Description 08/16/2024 Telephone [facility] MEDICINE [address] [place], [place] [phone] Hanny Lacy [place] Appointment Request Social History [...] 09/11/2024 9:45 AM EST Office Visit [facility] MEDICINE [address] [place] [address] 09/24/2024 3:15 PM EST Office Visit [facility] MEDICINE [address] [place] [address] Mackenzie Estrada MD [address] [place] [address] 10/01/2024 10:00 AM EST Office Visit [facility] OPTOMETRY [address] [place] [address] Libra Linder OD [address] [place] [address] documented as of this encounter Goals Goal [...] documented as of this encounter Care Teams Media Services Director Relationship Specialty Start Date End Date Mackenzie Estrada MD [address] [place] [address] PCP - General Family Medicine 07/10/20 documented as of this encounter
--- OUTSIDE RECORDS SUMMARY | 2024-08-27 14:37 | XMS_ITS | Clinical Summary ---
Author Organization [facility] Address [address] [place] [address] Care Team Providers Care Hands Parter Name Role Phone Sanjay Cruz MD Primary Care Provi [facility] Surgical History Surgery Date Site/Laterality Comments OTHER SURGICAL HISTORY 05/12/2020 Right PROCEDURE: CA BX/EXC LYMPH NODE OPEN SUPERFICIAL; COMMENT: Axillary Lymph Node biopsy- Benign Lymphoid Tissue OTHER SURGICAL HISTORY 12/19/2019 Right PROCEDURE: CA BX/EXC LYMPH NODE NEEDLE SUPERFICIAL; COMMENT: Axillary Lymph node -results were non daignostic Medical History Medical History Date Comments Anxiety DX:Anxiety Migraine DX:Migraine History of DVT (deep vein thrombosis) 05/23/2020 DX:History of DVT (deep vein thrombosis); COMMENT: 01/2005 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
--- OUTSIDE RECORDS SUMMARY | 2024-08-27 14:37 | XMS_ITS | Encounter Summary ---
Author Organization [employer] Address [address] [facility] 7t [place] [address] Care Team Providers Care Pathologist Name Role Phone Mackenzie Estrada MD Primary Care Provider [phone] Reason for Visit * Reason Comments Med Refill Encounter Details Date Type Department Care Team ([facility] st Contact Info) Description 02/08/2023 Refill [facility] MEDICINE [address] [place], [place] [phone] Mackenzie Estrada MD [address] [place] [address] Pain in both hands Social History Tobacco [...] Telephone Encounter - Kaylene Samano RN - 02/08/2023 10:56 AM EDT Duplicate request * Telephone Encounter - Edith Cruz - 02/08/2023 10:42 AM EDT Tc from patient requesting a med refill on medication oxycodone [address] Estrada documented in this encounter Plan of Treatment Upcoming Encounters Date Type Department Care Team (Late st Contact Info) Description 09/11/2024 9:45 AM EST Office Visit [facility] MEDICINE [address] [place] [address] 09/24/2024 3:15 PM EST Office Visit [facility] MEDICINE [address] [place] [address] Mackenzie Estrada MD [address] [place] [address] 10/01/2024 10:00 AM EST Office Visit [facility] OPTOMETRY [address] [place] [address] Libra Linder, OD [address] [place] [address] documented as of this encounter Visit Diagnoses Diagnosis Pain in both hands documented in this encounter Care Teams Pathologist Relationship Specialty Start Date End Date Mackenzie Estrada MD [address] [place] [address] PCP - General Family Medicine 07/10/20 documented as of this encounter
--- OUTSIDE RECORDS SUMMARY | 2024-08-27 14:37 | XMS_ITS | Encounter Summary ---
Author Organization [employer] Address [address] [place] [address] Care Team Providers Care Emergency Room Physician Assistant Name Role Phone Mackenzie Estrada MD Primary Care Provider [phone] Encounter Details Date Type Department Care Team (Late st Contact Info) Description 12/13/2023 Orders Only [facility] MEDICINE [address] [place], [place] [phone] Mackenzie Estrada MD [address] [place], [place] [phone] Pain in both hands Social History Tobacco [...] Description 09/11/2024 9:45 AM EST Office Visit [facility] MEDICINE [address] [place] [address] 09/24/2024 3:15 PM EST Office Visit [facility] MEDICINE [address] [place] [address] Mackenzie Estrada MD [address] [place] [address] 10/01/2024 10:00 AM EST Office Visit [facility] OPTOMETRY [address] [place] [address] Kailash, Libra, OD [address] [place] [address] documented as of this encounter Goals Goal Patient Goal Type Associated Problems Recent Progress Patient-Stated? Author Quit using tobacco (cigarettes, smokeless, etc) Tobacco Use No Corey Lin, PharmD documented as of this encounter Visit Diagnoses Diagnosis Pain in both hands documented in this encounter Care Teams Emergency Room Physician Assistant Relationship Specialty Start Date End Date Mackenzie Estrada MD [address] [place] [address] PCP - General Family Medicine 07/10/20 documented as of this encounter
--- OUTSIDE RECORDS SUMMARY | 2024-08-27 14:37 | XMS_ITS | Encounter Summary ---
Author Organization [employer] Address [address] [place] [address] Care Team Providers Care Herd Tester Name Role Phone Mackenzie Estrada MD Primary Care Provider [phone] Reason for Visit * Reason Comments Med Refill Encounter Details Date Type Department Care Team ([facility] Contact Info) Description 08/19/[address] [facility] MEDICINE [address] [place], [place] [phone] Mackenzie Estrada MD [address] [place], [place] [phone] Social History Tobacco Use Types Packs/Day Years [...] AM EST Office Visit [facility] MEDICINE [address] [place] [address] 09/24/2024 3:15 PM EST Office Visit [facility] MEDICINE [address] [place] [address] Mackenzie Estrada MD [address] [place] [address] 10/01/2024 10:00 AM EST Office Visit [facility] OPTOMETRY [address] [place] [address] Libra Linder, LAW [address] [place] [address] documented as of this encounter Goals Goal [...] documented as of this encounter Care Teams Herd Tester Relationship Specialty Start Date End Date Mackenzie Estrada MD [address] [place] [address] PCP - General Family Medicine 07/10/20 documented as of this encounter
--- OUTSIDE RECORDS SUMMARY | 2024-08-27 14:37 | XMS_ITS | Encounter Summary ---
Author Organization [employer] Address [address] 7t [place] [address] Care Team Providers Care E Mail System Administrator Name Role Phone Mackenzie Estrada MD Primary Care Provider [phone] Encounter Details Date Type Department Care Team (Late st Contact Info) Description 10/03/2023 Orders Only [facility] MEDICINE [address] [place], [place] [phone] Mackenzie Estrada MD 230 [place], [place] [phone] Bacterial vaginosis (Primary Dx) Social History Tobacco [...] Description 09/11/2024 9:45 AM EST Office Visit [facility] MEDICINE [address] [place] [address] 09/24/2024 3:15 PM EST Office Visit [facility] MEDICINE [address] [place] [address] Mackenzie Estrada MD 230 [place] [address] 10/01/2024 10:00 AM EST Office Visit [facility] OPTOMETRY [address] [place] [address] Kailash, Libra, OD 230 [place] [address] documented as of this encounter Goals Goal Patient Goal Type Associated Problems Recent Progress Patient-Stated? Author Quit using tobacco (cigarettes, smokeless, etc) Tobacco Use No Corey Lin, PharmD documented as of this encounter Visit Diagnoses Diagnosis Bacterial vaginosis- Primary Unspecified vaginitis and vulvovaginitis documented in this encounter Care Teams E Mail System Administrator Relationship Specialty Start Date End Date Mackenzie Estrada MD [address] [place] [address] PCP - General Family Medicine 07/10/20 documented as of this encounter
--- OUTSIDE RECORDS SUMMARY | 2024-08-27 14:37 | XMS_ITS | Encounter Summary ---
Author Organization [facility] Address [address] [place] [address] 7t [place] [address] Care Team Providers Care Ballroom Dance Instructor Name Role Phone Mackenzie Estrada MD Primary Care Provider [phone] Reason for Visit * Reason Comments Med Refill Encounter Details Date Type Department Care Team ([facility] Contact Info) Description 12/10/2022 Refill [facility] MEDICINE [address] [place] [address] [phone] Mackenzie Estrada MD 230 [place], [place] [phone] Pain in both hands Social History Tobacco [...] Upcoming Encounters Date Type Department Care Team ([facility] Contact Info) Description 09/11/2024 9:45 AM EST Office Visit [facility] MEDICINE [address] [place] [address] [phone] 09/24/2024 3:15 PM EST Office Visit [facility] MEDICINE [address] [place] [address] Mackenzie Estrada MD 230 [place], [place] [phone] 10/01/2024 10:00 AM EST Office Visit [facility] OPTOMETRY [address] [place], [place] [phone] Libra Linder, OD 230 [place], [place] [phone] documented as of this encounter Visit Diagnoses Diagnosis Pain in both hands documented in this encounter Care Teams Ballroom Dance Instructor Relationship Specialty Start Date End Date Mackenzie Estrada MD 230 [place], [place] [phone] PCP - General Family Medicine 07/10/20 documented as of this encounter
--- OUTSIDE RECORDS SUMMARY | 2024-08-27 14:37 | XMS_ITS | Encounter Summary ---
Author Organization [employer] Address [address] [facility] 7t [place] [address] Care Team Providers Care Sampler Ovens Name Role Phone Mackenzie Estrada MD Primary Care Provider [phone] Reason for Visit * Reason Onset Date Comments Med Refill 08/22/2024 Encounter Details Date Type Department Care Team ([facility] st Contact Info) Description 08/22/2024 Refill [facility] MEDICINE [address] [place], [place] [phone] Mackenzie Estrada MD 230 [place] [address] 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 [...] the past 12 months, has t he [employer], gas, oil or water [employer] threatened to shut off services in your [...] 7.5-325 MG tablet To be sent to: [facility] - [place], [place] - [address] [place] [address] documented in this encounter Plan of Treatment Upcoming Encounters Date Type Department Care Team (Late st Contact Info) Description 09/11/2024 9:45 AM EST Office Visit [facility] MEDICINE 230 [place] [address] 09/24/2024 3:15 PM EST Office Visit [facility] MEDICINE [address] [place] [address] Mackenzie Estrada MD 230 [place] [address] 10/01/2024 10:00 AM EST Office Visit [facility] OPTOMETRY [address] [place], [place] [phone] Kailash, Libra, OD 230 [place] [address] documented as of this encounter Goals Goal Patient Goal Type Associated Problems Recent Progress Patient-Stated? 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
--- OUTSIDE RECORDS SUMMARY | 2024-08-27 14:37 | XMS_ITS | Encounter Summary ---
Author Organization [employer] Address [address] [facility] 7t [place] [address] Care Team Providers Care Tower Climber Name Role Phone Mackenzie Estrada MD Primary Care Provider [phone] Encounter Details Date Type Department Care Team (Late Contact Info) Description 03/04/2023 Orders Only [facility] MEDICINE [address] [place] [address] [phone] Kat Yo MD 230 [place], [place] [phone] Social History Tobacco Use Types Packs/Day Years [...] 9:45 AM EST Office Visit [facility] MEDICINE [address] [place] [address] [phone] 09/24/2024 3:15 PM EST Office Visit [facility] MEDICINE [address] [place] [address] [phone] Mackenzie Estrada MD 230 [place] [address] 10/01/2024 10:00 AM EST Office Visit [facility] OPTOMETRY [address] [place], [place] [phone] Libra Linder, OD 230 [place], [place] [phone] documented as of this encounter Visit Diagnoses Not on filedocumented in this encounter Care Teams Tower Climber Relationship Specialty Start Date End Date Mackenzei Estrada MD 230 [place], [place] [phone] PCP - General Family Medicine 07/10/20 documented as of this encounter
--- OUTSIDE RECORDS SUMMARY | 2024-08-27 14:37 | XMS_ITS | Encounter Summary ---
Author Organization [employer] Address [address] 7t [place] [address] Care Team Providers Care Migratory Game Bird Biologist Name Role Phone Mackenzie Estrada MD Primary Care Provider [phone] Reason for Visit * Reason Onset Date Comments Durable Medical Equipment 08/15/2024 10 In 1 pillow Encounter Details Date Type Department Care Team ([facility] Contact Info) Description 08/15/2024 Telephone [facility] [address] [place], [place] [phone] Mackenzie Estrada MD 230 [place] [address] Durable Medical Equipment (10 In 1 pillow [...] the past 12 months, has t he [employer], gas, oil or water [employer] threatened to shut off services in your [...] 09/11/2024 9:45 AM EST Office Visit [facility] MEDICINE 230 [place] [address] 09/24/2024 3:15 PM EST Office Visit [facility] MEDICINE 230 [place] [address] Mackenzei Estrada MD 230 [place] [address] 10/01/2024 10:00 AM EST Office Visit [facility] OPTOMETRY [address] [place] [address] Libra Linder, LAW 230 [place] [address] documented as of this encounter Goals Goal Patient Goal Type Associated Problems Recent Progress Patient-Stated? Author Quit using tobacco (cigarettes, smokeless, etc) Tobacco Use Corey Cornell, KelechiD documented as of this encounter Visit Diagnoses Not on filedocumented in this encounter Additional Health Concerns Assessment Noted Time PHQ-9 Depression Total Score: 2 04/30/20 24 10:41 AM EDT documented as of this encounter Care Teams Migratory Game Bird Biologist Relationship Specialty Start Date End Date Mackenzie Estrada MD [address] [place] [address] PCP - General Family Medicine 07/10/20 documented as of this encounter
--- OUTSIDE RECORDS SUMMARY | 2024-08-27 14:37 | XMS_ITS | Encounter Summary ---
Author Organization [employer] Address [address] 7t [place] [address] Care Team Providers Care Chemistry Laboratory Technician Name Role Phone Mackenzie Estrada MD Primary Care Provider [phone] Reason for Visit * Reason Comments Med Refill Encounter Details Date Type Department Care Team ([facility] st Contact Info) Description 11/18/2023 Refill [facility] MEDICINE 230 [place], [place] [phone] Mackenzie Estrada MD 230 [place], [place] [phone] Pain in both hands Social History Tobacco [...] 9:45 AM EST Office Visit [facility] MEDICINE [address] [place] [address] 09/24/2024 3:15 PM EST Office Visit [facility] MEDICINE [address] [place] [address] Mackenzie Estrada MD 230 [place] [address] 10/01/2024 10:00 AM EST Office Visit [facility] OPTOMETRY [address] [place] [address] Kailash, Libra, OD 230 [place] [address] documented as of this encounter Goals Goal Patient Goal Type Associated Problems Recent Progress Patient-Stated? Author Quit using tobacco (cigarettes, smokeless, etc) Tobacco Use No Corey Lin, PharmD documented as of this encounter Visit Diagnoses Diagnosis Pain in both hands documented in this encounter Care Teams Chemistry Laboratory Technician Relationship Specialty Start Date End Date Mackenzie Estrada MD [address] [place] [address] PCP - General Family Medicine 07/10/20 documented as of this encounter
--- OUTSIDE RECORDS SUMMARY | 2024-08-27 14:37 | XMS_ITS | Encounter Summary ---
Author Organization [employer] Address [address] 7t [place] [address] Care Team Providers Care Cnc Machinist Name Role Phone Mackenzie Estrada MD Primary Care Provider [phone] Encounter Details Date Type Department Care Team [...] Office Visit [facility] MEDICINE [address] [place] [address] 09/24/2024 3:15 PM EST Office Visit [facility] MEDICINE [address] [place] [address] Mackenzie Estrada MD 230 [place] [address] 10/01/2024 10:00 AM EST Office Visit [facility] OPTOMETRY [address] [place] [address] Kailash, Libra, OD 230 [place] [address] documented as of this encounter Goals Goal [...] documented as of this encounter Care Teams Cnc Machinist Relationship Specialty Start Date End Date Mackenzie Estrada MD [address] [place] [address] PCP - General Family Medicine 07/10/20 documented as of this encounter
--- OUTSIDE RECORDS SUMMARY | 2024-08-27 14:37 | XMS_ITS | Encounter Summary ---
Author Organization [employer] Address [address] 7t [place] [address] Care Team Providers Care Cargo Trimmer Name Role Phone Mackenzie Estrada MD Primary Care Provider [phone] Encounter Details Date Type Department Care Team (Late st Contact Info) Description 08/14/2024 9:45 AM EST Office Visit [facility] MEDICINE 230 [place] [address] Sisi Kennedy FNP 505 [place], [place] [phone] Long-term current use of opiate analgesic (Primary [...] the past 12 months, has t he [employer], gas, oil or water [employer] threatened to shut off services in your [...] this encounter Progress Notes * Sisi Kennedy, POLICY CHANGE CLERK - 08/14/2024 9:45 AM EST Subjective: Ginette [...] History: Associated Diagnosis: Rheumatoid Arthritis Following with [facility] - Dr. Castro Per PCP Note: [...] involving right hand with positive rheumatoid factor ([facility]) Overview - Following with [facility] Rheum: Dr. Castro - [facility] request for 10-in-1 pillow on 08/14/24 Long-term current use of opiate analgesic - Primary Overview Medication: Percocet 7.5/325mg TID PRN Indication: Rheumatoid arthritis Last SAMPLE SUPERVISOR Agreement: 06/12/24 Current Assessment & Plan -Good [...] Somers RN - 08/14/2024 9:45 AM EST .SAMPLE SUPERVISOR chisel grinder: PDMP reviewed today. Last fill date: 07/26/24 [...] Description 09/11/2024 9:45 AM EST Office Visit [facility] MEDICINE 230 [place] [address] 09/24/2024 3:15 PM EST Office Visit [facility] MEDICINE [address] [place] [address] Mackenzie Estrada MD 230 [place] [address] 10/01/2024 10:00 AM EST Office Visit [facility] OPTOMETRY 267 [place] [address] Libra Linder, OD 230 [place] [address] documented as of this encounter Goals Goal [...] / Unknown 08/14/2024 1:47 PM EST Result [facility] Sisi Kennedy POLICY CHANGE CLERK POINT OF CARE TEST ENTER/EDIT ORDERABLES Final Result documented in this encounter Visit Diagnoses Diagnosis Long-term current use of opiate analgesic- Primary Encounter for long-term (current) use of other medications 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 ([facility]) 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
--- OUTSIDE RECORDS SUMMARY | 2024-08-27 14:37 | XMS_ITS | Encounter Summary ---
Author Organization [facility] Address [address] [facility] 7t [place] [address] Care Team Providers Care Geochemistry Teacher Name Role Phone Mackenzie Estrada MD Primary Care Provider Reason for Referral * Imaging (Routine) - Closed Specialty Diagnoses / Procedures Referred By Contac t Referred To Contact Radiology Diagnoses Abnormal ultrasound of pelvis Procedures MR Pelvis w/ and w/o Contrast Mackenzie Estrada MD 230 [place] [address] Phone: tel: fax: [address] Phone: tel: fax: Referral ID Status Reason Start Date Expiration Date Visits Re quested Visits Authorized [id number] Closed 10/31/2023 10/30/2024 1 1 Encounter Details Date Type Department Care Team (Late st Contact Info) Description 10/31/2023 Orders Only [facility] MEDICINE 230 [place], [place] [phone] Mackenzie Estrada MD 230 [place], [place] [phone] Abnormal ultrasound of pelvis (Primary Dx) Social [...] which I need to talk to her weather stripper about. Thank you! documented in this encounter Plan of Treatment Upcoming Encounters Date Type Department Care Team (Late st Contact Info) Description 09/11/2024 9:45 AM EST Office Visit [facility] [address] 09/24/2024 3:15 PM EST Office Visit [facility] [address] [facility] [place] [address] Mackenzie Estrada MD [address] [facility] [place] [address] 10/01/2024 10:00 AM EST Office Visit [facility] OPTOMETRY [address] [place] [address] Kailash, Libra, OD 230 [facility] [place] [address] documented as of this encounter Goals Goal [...] EDT Narrative 12/07/2023 9:11 AM EDT ? [facility] ?[address] ?[place] [address] ? Magnetic Resonance Report ? Signed ? Patient: Ovidio Lacy,Ginette ?MR ?? #: [id number] ? : 1975 ?Acct:[id number] ? Age/Sex: 48 / F ?ADM Date: 04/26/24 ? Loc: HO.MRI ? Attending Dr: Mackenzie Estrada MD ? Ordering Physician: Mackenzie Estrada ?? Date of Service: 11/25/23 ?? Procedure(s): MR pelvis wo/w con ?? Accession Number(s): [id number] ? cc: Mackenzie Estrada ? EXAMINATION: ?? [...] 7.8 x 3.6 ?? x 4.3 cm (muibtv-dc-cdzdfb x AP x transverse dimension). The junctional [...] 907 ? DD/ 1505 ? TD/TT: ? Natural Resource Officer: PD ? Procedure Note Lorin, Image - 12/07/2023 [place] [address] Magnetic Resonance Report Signed Patient: Ginette Arceo #: [id number] : 1975Acct:[id number] Age/Sex: 48 / FADM Date: 11/25/23 Loc: .MRI Attending Dr: Mackenzie Estrada MD Ordering Physician: Mackenzie Estrada Date of Service: 11/25/23 Procedure(s): MR pelvis wo/w con Accession Number(s): [id number] cc: Mackenzie Estrada EXAMINATION: MR PELVIS WITHOUT [...] measures 7.8 x 3.6 x 4.3 cm (sdgfae-fz-hmfuhe x AP x transverse dimension). The junctional [...] in OV> 12/07/23 0907 DD/ 1505 TD/TT: Natural Resource Officer: PD Mackenzie Estrada MD IMG MRI PROCEDURES Final Resul t documented in this encounter Visit Diagnoses Diagnosis Abnormal ultrasound of pelvis- Primary documented in this encounter Care Teams Geochemistry Teacher Relationship Specialty Start Date End Date Mackenzie Estrada MD [address] [place] [address] PCP - General Family Medicine 07/10/20 documented as of this encounter
--- OUTSIDE RECORDS SUMMARY | 2024-08-27 14:38 | XMS_ITS | Encounter Summary ---
Author Organization [employer] Address [address] 7t [place] [address] Care Team Providers Care Landscape Architecture Teacher Name Role Phone Mackenzie Estrada MD Primary Care Provider [phone] Reason for Visit * Reason Comments Med Refill Encounter Details Date Type Department Care Team ([facility] Contact Info) Description 07/26/2023 Refill [facility] MEDICINE 230 [place], [place] [phone] Name, MD Mark 230 [place] [address] Pain in both hands Social History Tobacco [...] 09/11/2024 9:45 AM EST Office Visit [facility] MEDICINE 230 [place] [address] 09/24/2024 3:15 PM EST Office Visit [facility] MEDICINE [address] [place] [address] Mackenzie Estrada MD 230 [place] [address] 10/01/2024 10:00 AM EST Office Visit [facility] OPTOMETRY [address] [place] [address] Kailash, Libra, OD 230 [place] [address] documented as of this encounter Goals Goal Patient Goal Type Associated Problems Recent Progress Patient-Stated? Author Quit using tobacco (cigarettes, smokeless, etc) Tobacco Use No Corey Lin, PharmD documented as of this encounter Visit Diagnoses Diagnosis Pain in both hands documented in this encounter Care Teams Landscape Architecture Teacher Relationship Specialty Start Date End Date Mackenzei Estrada MD [address] [place] [address] PCP - General Family Medicine 07/10/20 documented as of this encounter
--- OUTSIDE RECORDS SUMMARY | 2024-08-27 14:38 | XMS_ITS | Encounter Summary ---
Author Organization [facility] Address [address] [facility] 7t [place] [address] Care Team Providers Care Salon Leader Name Role Phone Mackenzie Estrada MD Primary Care Provider [phone] Encounter Details Date Type Department Care Team ([facility] Contact Info) Description 03/29/2023 Abstract [facility] MEDICINE 230 [place] [address] Cecilia Henriquez Social History Tobacco Use Types Packs/Day [...] Upcoming Encounters Date Type Department Care Team ([facility] Contact Info) Description 09/11/2024 9:45 AM EST Office Visit [facility] MEDICINE 230 [place], [place] [phone] 09/24/2024 3:15 PM EST Office Visit [facility] MEDICINE [address] [place] [address] Mackenzie Estrada MD 230 [place] [address] 10/01/2024 10:00 AM EST Office Visit [facility] OPTOMETRY [address] [place] [address] Libra Linder, OD 230 [place] [address] documented as of this encounter Procedures Procedure Name Priority Date/Time Associated Diagnosis Comments COLONOSCOPY Routine 10/28/2017 documented in this encounter Results * Colonoscopy (10/28/2017) Colonoscopy Normal Normal Narrative Cecilia Henriquez - 10/28/2017 Recommended 10 year follow up ([facility]) us Historical Provider [employer] MAINTENANCE Edited Result - Final documented in this encounter Visit Diagnoses Not on filedocumented in this encounter Care Teams Salon Leader Relationship Specialty Start Date End Date Mackenzie Estrada MD 230 [place] [address] PCP - General Family Medicine 07/10/20 documented as of this encounter
--- OUTSIDE RECORDS SUMMARY | 2024-08-27 14:38 | XMS_ITS | Encounter Summary ---
Author Organization [employer] Address [address] 7t [place] [address] Care Team Providers Care Business Objects Developer Name Role Phone Mackenzie Estrada MD Primary Care Provider [phone] Reason for Visit * Reason Onset Date Comments Error 08/16/2023 Encounter Details Date Type Department Care Team ([facility] Contact Info) Description 08/16/2023 Telephone [facility] MEDICINE 230 [place], [place] [phone] Mackenzie Estrada MD 230 [place], [place] [phone] Error Social History Tobacco Use Types Packs/Day [...] Description 09/11/2024 9:45 AM EST Office Visit [facility] MEDICINE 230 [place] [address] 09/24/2024 3:15 PM EST Office Visit [facility] MEDICINE [address] [place] [address] Mackenzie Estrada MD 230 [place] [address] 10/01/2024 10:00 AM EST Office Visit [facility] OPTOMETRY 267 [place] [address] Kailash, Libra, OD 230 [place] [address] documented as of this encounter Goals Goal Patient Goal Type Associated Problems Recent Progress Patient-Stated? Author Quit using tobacco (cigarettes, smokeless, etc) Tobacco Use No Corey Lin, PharmD documented as of this encounter Visit Diagnoses Not on filedocumented in this encounter Care Teams Business Objects Developer Relationship Specialty Start Date End Date Mackenzie Estrada MD [address] [place] [address] PCP - General Family Medicine 07/10/20 documented as of this encounter
--- OUTSIDE RECORDS SUMMARY | 2024-08-27 14:38 | XMS_ITS | Encounter Summary ---
Author Organization [employer] Address [address] [facility] [address] 7t [place] [address] Care Team Providers Care Industrial Therapist Name Role Phone Mackenzie Estrada MD Primary Care Provider [phone] Reason for Visit * Reason Comments Med Refill Encounter Details Date Type Department Care Team ([facility] Contact Info) Description 07/21/2023 Refill [facility] MEDICINE [address] [place], [place] [phone] Name, MD Mark 230 [place] [address] Pain in both hands Social History Tobacco [...] 9:45 AM EST Office Visit [facility] MEDICINE [address] [place] [address] 09/24/2024 3:15 PM EST Office Visit [facility] MEDICINE [address] [place] [address] Mackenzie Estrada MD 230 [place] [address] 10/01/2024 10:00 AM EST Office Visit [facility] OPTOMETRY [address] [place] [address] Kailash, Libra, OD 230 [place] [address] documented as of this encounter Goals Goal Patient Goal Type Associated Problems Recent Progress Patient-Stated? Author Quit using tobacco (cigarettes, smokeless, etc) Tobacco Use No Corey Lin, PharmD documented as of this encounter Visit Diagnoses Diagnosis Pain in both hands documented in this encounter Care Teams Industrial Therapist Relationship Specialty Start Date End Date Mackenzie Estrada MD [address] [place] [address] PCP - General Family Medicine 07/10/20 documented as of this encounter
--- OUTSIDE RECORDS SUMMARY | 2024-08-27 14:38 | XMS_ITS | Encounter Summary ---
Author Organization [employer] Address 75 [facility] 7t [place] [address] Care Team Providers Care Exhibits Manager Name Role Phone Mackenzie Estrada MD Primary Care Provider [phone] Reason for Visit * Reason Comments Med Refill Encounter Details Date Type Department Care Team (Late Contact Info) Description 09/22/2022 Refill [facility] WALK-IN CENTER 230 [place], [place] [phone] Sarika Palacios ANP 230 [place], [place] [phone] Tinea pedis of both feet Social History [...] Description 09/11/2024 9:45 AM EST Office Visit [facility] MEDICINE [address] [place] [address] [phone] 09/24/2024 3:15 PM EST Office Visit [facility] MEDICINE [address] [place] [address] Mackenzie Estrada MD 230 [place] [address] 10/01/2024 10:00 AM EST Office Visit [facility] OPTOMETRY [address] [place], [place] [phone] KailashLibra damian, OD 230 [place] [address] documented as of this encounter Visit Diagnoses Diagnosis Tinea pedis of both feet documented in this encounter Care Teams Exhibits Manager Relationship Specialty Start Date End Date Mackenzie Estrada MD 230 [place], [place] [phone] PCP - General Family Medicine 07/10/20 documented as of this encounter
--- OUTSIDE RECORDS SUMMARY | 2024-08-27 14:38 | XMS_ITS | Encounter Summary ---
Author Organization [employer] Address [address] [facility] [address] 7t [place] [address] Care Team Providers Care Signal Mechanic Name Role Phone Mackenzie Estrada MD Primary Care Provider [phone] Reason for Visit * Reason Comments Med Refill Encounter Details Date Type Department Care Team ([facility] st Contact Info) Description 06/01/2023 Refill [facility] MEDICINE 230 [place], [place] [phone] Mackenzie Estrada MD 230 [place], [place] [phone] Pain in both hands Social History Tobacco [...] EST Office Visit [facility] MEDICINE [address] [place] [address] 09/24/2024 3:15 PM EST Office Visit [facility] MEDICINE [address] [place] [address] Mackenzie Estrada MD 230 [place] [address] 10/01/2024 10:00 AM EST Office Visit [facility] OPTOMETRY 267 [place] [address] Kailash, Libra, OD 230 [place] [address] documented as of this encounter Goals Goal Patient Goal Type Associated Problems Recent Progress Patient-Stated? Author Quit using tobacco (cigarettes, smokeless, etc) Tobacco Use No Corey Lin, PharmD documented as of this encounter Visit Diagnoses Diagnosis Pain in both hands documented in this encounter Care Teams Signal Mechanic Relationship Specialty Start Date End Date Mackenzie Estrada MD [address] [place] [address] PCP - General Family Medicine 07/10/20 documented as of this encounter
--- OUTSIDE RECORDS SUMMARY | 2024-08-27 14:38 | XMS_ITS | Encounter Summary ---
Author Organization [employer] Address [address] [facility] [address] 7t [place] [address] Care Team Providers Care Soaker Soda Worker Name Role Phone Mackenzie Estrada MD Primary Care Provider Reason for Visit * Reason Comments Med Refill Encounter Details Date Type Department Care Team ([facility] st Contact Info) Description 08/26/2023 Refill [facility] MEDICINE 230 [place] [address] Sisi Kennedy FNP [address] [place], [place] [phone] Viral upper respiratory tract infection Social History [...] 9:45 AM EST Office Visit [facility] MEDICINE 230 [place] [address] 09/24/2024 3:15 PM EST Office Visit [facility] MEDICINE 230 [place] [address] Mackenzie Estrada MD 230 [place] [address] 10/01/2024 10:00 AM EST Office Visit [facility] OPTOMETRY 267 [place] [address] Kailash, Libra, OD 230 [place] [address] documented as of this encounter Goals Goal Patient Goal Type Associated Problems Recent Progress Patient-Stated? Author Quit using tobacco (cigarettes, smokeless, etc) Tobacco Use No Corey Lin, KelechiD documented as of this encounter Visit Diagnoses Diagnosis Viral upper respiratory tract infection Acute upper respiratory infections of unspecified site documented in this encounter Care Teams Soaker Soda Worker Relationship Specialty Start Date End Date Mackenzie Estrada MD [address] [place] [address] PCP - General Family Medicine 07/10/20 documented as of this encounter
--- OUTSIDE RECORDS SUMMARY | 2024-08-27 14:38 | XMS_ITS | Encounter Summary ---
Author Organization [employer] Address [address] [facility] [address] 7t [place] [address] Care Team Providers Care Metal Hanger Name Role Phone Mackenzie Estrada MD Primary Care Provider [phone] Encounter Details Date Type Department Care Team (Late st Contact Info) Description 05/10/2024 Orders Only [facility] MEDICINE 230 [place], [place] [phone] Mackenzie Estrada MD 230 [place], [place] [phone] Social History Tobacco Use Types Packs/Day Years [...] Description 09/11/2024 9:45 AM EST Office Visit [facility] MEDICINE 230 [place] [address] 09/24/2024 3:15 PM EST Office Visit [facility] MEDICINE 230 [place] [address] Mackenzie Estrada MD 230 [place] [address] 10/01/2024 10:00 AM EST Office Visit [facility] OPTOMETRY [address] [place] [address] Libra Linder, OD 230 [place] [address] documented as of this encounter Goals Goal Patient Goal Type Associated Problems Recent Progress Patient-Stated? Author Quit using tobacco (cigarettes, smokeless, etc) Tobacco Use No Corey Lin, KelechiD documented as of this encounter Visit Diagnoses Not on filedocumented in this encounter Additional Health Concerns Assessment Noted Time PHQ-9 Depression Total Score: 2 04/30/20 10:41 AM EDT documented as of this encounter Care Teams Metal Hanger Relationship Specialty Start Date End Date Mackenzie Estrada MD 230 [place] [address] PCP - General Family Medicine 07/10/20 documented as of this encounter
--- OUTSIDE RECORDS SUMMARY | 2024-08-27 14:38 | XMS_ITS | Encounter Summary ---
Author Organization [employer] Address [address] [facility] [address] 7t [place] [address] Care Team Providers Care Franchise Business Consultant Name Role Phone Mackenzie Estrada MD Primary Care Provider [phone] Reason for Visit * Reason Onset Date Comments Hospital Follow-up 02/24/2024 Encounter Details Date Type Department Care Team ([facility] st Contact Info) Description 02/24/2024 Telephone [facility] MEDICINE 230 [place], [place] [phone] Mackenzie Estrada MD 230 [place] [address] Hospital Follow-up Social History Tobacco Use Types [...] from pt requesting a HDF appt. Hospital: [facility] Date of admission: 02/19 Discharge date: 02/23 Diagnosed: Rectal Bleeding Trinidadian Speaker documented in this encounter Plan of Treatment Upcoming Encounters Date Type Department Care Team (Late st Contact Info) Description 09/11/2024 9:45 AM EST Office Visit [facility] MEDICINE 230 [place] [address] 09/24/2024 3:15 PM EST Office Visit [facility] MEDICINE [address] [place] [address] Mackenzie Estrada MD 230 [place] [address] 10/01/2024 10:00 AM EST Office Visit [facility] OPTOMETRY [address] [place] [address] Libra Linder, OD 230 [place] [address] documented as of this encounter Goals Goal Patient Goal Type Associated Problems Recent Progress Patient-Stated? Author Quit using tobacco (cigarettes, smokeless, etc) Tobacco Use No Corey Lin, KelechiD documented as of this encounter Visit Diagnoses Not on filedocumented in this encounter Care Teams Franchise Business Consultant Relationship Specialty Start Date End Date Mackenzie Estrada MD 230 [place] [address] PCP - General Family Medicine 07/10/20 documented as of this encounter
--- OUTSIDE RECORDS SUMMARY | 2024-08-27 14:38 | XMS_ITS | Encounter Summary ---
Author Organization [employer] Address [address] [facility] [address] 7t [place] [address] Care Team Providers Care Civil Engineering Draftsperson Name Role Phone Mackenzie Estrada MD Primary Care Provider [phone] Encounter Details Date Type Department Care Team (Late st Contact Info) Description 04/20/2024 Telephone [facility] MEDICINE 230 [place], [place] [phone] Mackenzie Estrada MD 230 [place], [place] [phone] Social History Tobacco Use Types Packs/Day Years [...] Description 09/11/2024 9:45 AM EST Office Visit [facility] MEDICINE 230 [place] [address] 09/24/2024 3:15 PM EST Office Visit [facility] MEDICINE [address] [place] [address] Mackenzie Estrada MD 230 [place] [address] 10/01/2024 10:00 AM EST Office Visit [facility] OPTOMETRY [address] [place] [address] Kailash, Libra, OD 230 [place] [address] documented as of this encounter Goals Goal Patient Goal Type Associated Problems Recent Progress Patient-Stated? Author Quit using tobacco (cigarettes, smokeless, etc) Tobacco Use No Corey Lin, Bailey documented as of this encounter Visit Diagnoses Not on filedocumented in this encounter Care Teams Civil Engineering Draftsperson Relationship Specialty Start Date End Date Mackenzie Estrada MD [address] [place] [address] PCP - General Family Medicine 07/10/20 documented as of this encounter
--- OUTSIDE RECORDS SUMMARY | 2024-08-27 14:38 | XMS_ITS | Encounter Summary ---
Author Organization [employer] Address [address] [facility] [address] 7t [place] [address] Care Team Providers Care Tray Service Worker Name Role Phone Mackenzie Estrada MD Primary Care Provider [phone] Reason for Visit * Reason Comments Med Refill Encounter Details Date Type Department Care Team ([facility] Contact Info) Description 07/27/2023 Refill [facility] MEDICINE 230 [place], [place] [phone] Name, MD Mark 230 [place] [address] Pain in both hands Social History Tobacco [...] Office Visit [facility] MEDICINE 230 [place] [address] 09/24/2024 3:15 PM EST Office Visit [facility] MEDICINE [address] [place] [address] Mackenzie Estrada MD 230 [place] [address] 10/01/2024 10:00 AM EST Office Visit [facility] OPTOMETRY [address] [place] [address] Kailash, Libra, OD 230 [place] [address] documented as of this encounter Goals Goal Patient Goal Type Associated Problems Recent Progress Patient-Stated? Author Quit using tobacco (cigarettes, smokeless, etc) Tobacco Use No Corey Lin, PharmD documented as of this encounter Visit Diagnoses Diagnosis Pain in both hands documented in this encounter Care Teams Tray Service Worker Relationship Specialty Start Date End Date Mackenzie Estrada MD [address] [place] [address] PCP - General Family Medicine 07/10/20 documented as of this encounter
--- OUTSIDE RECORDS SUMMARY | 2024-08-27 14:38 | XMS_ITS | Encounter Summary ---
Author Organization [employer] Address [address] [facility] [address] 7t [place] [address] Care Team Providers Care Baseball Hand Sewer Name Role Phone Mackenzie Estrada MD Primary Care Provider [phone] Encounter Details Date Type Department Care Team (Late st Contact Info) Description 06/03/2023 Orders Only [facility] MEDICINE 230 [place], [place] [phone] Mackenzie Estrada MD 230 [place], [place] [phone] Pain in both hands Social History Tobacco [...] 9:45 AM EST Office Visit [facility] MEDICINE 230 [place] [address] 09/24/2024 3:15 PM EST Office Visit [facility] MEDICINE 230 [place] [address] Mackenzie Estrada MD 230 [place] [address] 10/01/2024 10:00 AM EST Office Visit [facility] OPTOMETRY [address] [place] [address] Kailash, Libra, OD 230 [place] [address] documented as of this encounter Goals Goal [...] EST Narrative 06/03/2023 5:47 PM EDT ? [facility] ?[address] ?[place] [address] ?XRay Report ? Signed ? Patient: Ovidio Lacy,Ginette ?MR ?? #: [id number] ? : 1975 ?Acct:[id number] ? Age/Sex: 47 / F ?ADM Date: 06/25/23 ? Loc: HO.ED ? Attending Dr: ? Ordering Physician: Treasure Clemons ?? Date of Service: 06/25/23 ?? Procedure(s): XR chest 2V ?? Accession Number(s): [id number] ? cc: Mackenzie Estrada; Treasure Clemons ? [...] 1230 ? DD/ 1215 ? TD/TT: ? Transfer Professor: MSM ? Procedure Note Lorin, Image - 06/25/2023 [facility] [address] [place] [address] XRay Report Signed Patient: Ginette ArceoMR #: [id number] : 1975Acct:[id number] Age/Sex: 47 / FADM Date: 06/25/23 Loc: HO.ED Attending Dr: Ordering Physician: Treasure Clemons Date of Service: 06/25/23 Procedure(s): XR chest 2V Accession Number(s): [id number] cc: Mackenzie Estrada; Treasure Clemons EXAMINATION: XR [...] in OV> 06/25/23 1230 DD/ 1215 TD/TT: Transfer Professor: MAGGIE [facility] External Provider IMG XR PROCEDURES Edited Result - Final * (ABNORMAL) Urinalysis, Complete, with Reflex to Culture (06/03/2023 4:49 PM EDT) Color Urine Yellow [facility] Appearance Urine Clear [facility] PH 5.5 5.0 - 9.0 [facility] Glucose Urine UA Negative Negative mg/dL [facility] Urine Blood Large (3+)(A) Negative [facility] Specific [place] - Urine 1.025 1.005 - 1.025 [facility] Urine Protein Negative Neg-Trace mg/dL [facility] Urine Ketones Negative Negative mg/dL [facility] Nitrite Urine Negative Negative [facility] Leukocyte Esterase Urine Negative Negative [facility] RBC Urine >20(A) 0 - 2 /HPF [facility] Urine WBC 0-5 0 - 5 /HPF [facility] Urine Squamous Epithelial Cell 11-20 0 - 2 /HPF [facility] Urine Bacteria 1+ None Seen [facility] Hyaline Casts, Urine 0-2 0 - 2 /LPF [facility] 06/03/2023 4:49 PM EDT 06/03/2023 4:52 PM EDT [facility] - 06/03/2023 5:00 PM EDT Urine, Clean Catch us Generic External Data Provider LAB URINE ORDERAB LES Final Result Performing Organization Address [facility]/ZIP Co de Phone Number [facility] [address] [place] [address] [phone] * (ABNORMAL) Urinalysis w/reflex microscopic (06/03/2023 4:49 PM EDT) Color Urine Yellow [facility] Appearance Urine Clear [facility] PH 5.5 5.0 - 9.0 [facility] Glucose Urine UA Negative Negative mg/dL [facility] Urine Blood Large (3+)(A) Negative [facility] Specific [place] - Urine 1.025 1.005 - 1.025 [facility] Urine Protein Negative Neg-Trace mg/dL [facility] Urine Ketones Negative Negative mg/dL [facility] Nitrite Urine Negative Negative [facility] Leukocyte Esterase Urine Negative Negative [facility] 06/03/2023 4:49 PM EDT 06/03/2023 4:52 PM EDT [facility] - 06/03/2023 4:57 PM EDT Urine, Clean Catch us Generic External Data Provider LAB URINE ORDERAB LES Final Result Performing Organization Address [facility]/ZIP Co de Phone Number [facility] [address] [place] [address] [phone] * Influenza A B2 ID NOW (Corona) (06/03/2023 4:34 PM EDT) IDNOW SERIAL# [id number] [facility] Influenza A Negative Negative [facility] Influenza B2 Negative Negative [facility] Influenza A B2 Note See Note [facility] Comment:The Corona ID NOW In [...] LAB MICROBIOLOGY - GENERAL ORDERABLES Final Result [facility] [address] [place] [address] [phone] * COVID-19 ID NOW (CORONA) (06/03/2023 4:34 PM EDT) IDNOW SERIAL# [id number] [facility] COVID-19 TEST Negative Negative [facility] COVID-19 NOTE See Note [facility] Comment: Results are for the identification of SARS-CoV2 RNA. TheSARS-CoV2 RNA is generally detectable in respiratory samplesduring the acute phase of infection. Positive results areindicative of the presence of SARS-CoV-2 RNA; clinicalcorrelation with patient history and other diagnosticinformation is necessary to determine patient infectionstatus. Positive results do not rule out bacterial infectionor co- infection with other viruses.Testing facilities within the [facility] and itsterritories are required to report all [...] use by authorized laboratories.Testing performed on the [employer] ID NOW utilizing NAAT. 06/03/2023 4:34 PM EDT 06/03/2023 4:40 PM EDT us Generic External Data Provider LAB MOLECULAR ARNAV GNOSTICS ORDERABLES Final Result [facility] [address] [place] [phone] documented in this encounter Visit Diagnoses Diagnosis Pain in both hands documented in this encounter Care Teams Baseball Hand Sewer Relationship Specialty Start Date End Date Mackenzie Estrada MD [address] [place] [address] PCP - General Family Medicine 07/10/20 documented as of this encounter
--- OUTSIDE RECORDS SUMMARY | 2024-08-27 14:38 | XMS_ITS | Encounter Summary ---
Author Organization [employer] Address 75 [facility] 7t [place] [address] Care Team Providers Care Government Auditor Name Role Phone Mackenzie Estrada MD Primary Care Provider [phone] Reason for Visit * Reason Onset Date Comments Triage 11/10/2022 Encounter Details Date Type Department Care Team ([facility] [address] Contact Info) Description 11/10/2022 Telephone [facility] MEDICINE [address] [place], [place] [phone] Mackenzie Estrada MD 230 [place], [place] [phone] Triage Social History Tobacco Use Types Packs/Day [...] - 11/11/2022 11:10 AM EDT TC to [phone] via [employer] interpreters in regards to below message. Pt reports she went to [facility] since [facility] did not return her call. RN informed pt triage nurses attempted to call pt x2 however pt did not answer. RN reviewed [facility] ED note and pt presented to ED [...] however she has not been able to clam picker the nystatin medication because [facility] did not have it. RN asked if [facility] informed the pt they were going to order it however pt was not sure. RN placed pt on hold and called [facility] pharmacy who reports it is supposed to be arriving in store today and pt should call around 3pm to inquire if it was received and ready for clam picker. Pt verbalized understanding. RN advised pt if her rash does not resolve with medication and her pain does not resolve to call [facility] to schedule an appt for further evaluation. Pt verbalized understanding. Pt to F/U PRN. RN has printed ED note and placed in scan bin * Telephone Encounter - Chika Ingram LPN - 11/10/2022 2:30 PM EDT Triage call returned to patient with Talbot welt insole channeler [phone] to listed number x 2 no answer. Left message to return call to [phone]. Team Nurses tasked to follow with patient [...] 9:45 AM EST Office Visit [facility] MEDICINE [address] [place] [address] 09/24/2024 3:15 PM EST Office Visit [facility] MEDICINE [address] [place] [address] Mackenzie Estrada MD [address] [place] [address] 10/01/2024 10:00 AM EST Office Visit [facility] OPTOMETRY [address] [place] [address] Kailash, Libra, OD 230 [place] [address] documented as of this encounter Visit Diagnoses Not on filedocumented in this encounter Care Teams Government Auditor Relationship Specialty Start Date End Date Mackenzie Estrada MD [address] [place] [address] PCP - General Family Medicine 07/10/20 documented as of this encounter
--- OUTSIDE RECORDS SUMMARY | 2024-08-27 14:38 | XMS_ITS | Encounter Summary ---
Author Organization [employer] Address [address] [facility] [address] 7t [place] [address] Care Team Providers Care Curing Press Maintainer Name Role Phone Mackenzie Estrada MD Primary Care Provider [phone] Reason for Visit * Reason Onset Date Comments Appointment Request 08/16/2023 Encounter Details Date Type Department [facility] Description 08/16/2023 Telephone [facility] MEDICINE 230 [place], [place] [phone] Mackenzie Estrada MD 230 [place] [address] Appointment Request Social History Tobacco Use Types [...] be seen today. Please contact pt @ [phone] Peruvian Speaker documented in this encounter Plan of Treatment Upcoming Encounters Date Type Department Care Team (Late st Contact Info) Description 09/11/2024 9:45 AM EST Office Visit [facility] MEDICINE [address] [place] [address] 09/24/2024 3:15 PM EST Office Visit [facility] MEDICINE [address] [place] [address] Mackenzie Estrada MD [address] [place] [address] 10/01/2024 10:00 AM EST Office Visit [facility] OPTOMETRY [address] [place] [address] Libra Linder, OD 230 [place] [address] documented as of this encounter Goals Goal Patient Goal Type Associated Problems Recent Progress Patient-Stated? Author Quit using tobacco (cigarettes, smokeless, etc) Tobacco Use No Corey Lin, KelechiD documented as of this encounter Visit Diagnoses Not on filedocumented in this encounter Care Teams Curing Press Maintainer Relationship Specialty Start Date End Date Mackenzie Estrada MD [address] [place] [address] PCP - General Family Medicine 07/10/20 documented as of this encounter
--- OUTSIDE RECORDS SUMMARY | 2024-08-27 14:38 | XMS_ITS | Encounter Summary ---
Author Organization [employer] Address [address] [place] [address] Care Team Providers Care Vp Product Name Role Phone Mackenzie Estrada MD Primary Care Provider Encounter Details Date Type Department Care Team (Late st Contact Info) Description 04/10/2024 Orders Only [facility] [address] [place], [place] [phone] Mackenzie Estrada MD [address] [place], [place] [phone] Social History Tobacco Use Types Packs/Day Years [...] Description 09/11/2024 9:45 AM EST Office Visit [facility] [address] [place] [address] 09/24/2024 3:15 PM EST Office Visit [facility] [address] [place] [address] Mackenzie Estrada MD [address] [place] [address] 10/01/2024 10:00 AM EST Office Visit [facility] [address] [place] [address] Kailash, Libra, OD [address] [place] [address] documented as of this encounter Goals Goal Patient Goal Type Associated Problems Recent Progress Patient-Stated? Author Quit using tobacco (cigarettes, smokeless, etc) Tobacco Use No Corey Lin, Bailey documented as of this encounter Visit Diagnoses Not on filedocumented in this encounter Care Teams Vp Product Relationship Specialty Start Date End Date Mackenzie Estrada MD [address] [place] [id number] PCP - General Family Medicine 07/10/20 documented as of this encounter
--- OUTSIDE RECORDS SUMMARY | 2024-08-27 14:38 | XMS_ITS | Encounter Summary ---
Author Organization [employer] Address [address] [place] [address] Care Team Providers Care Primary Care Pediatrician Name Role Phone Mackenzie Estrada MD Primary Care Provider [phone] Encounter Details Date Type Department Care Team ([facility] st Contact Info) Description 05/21/2024 Telephone [facility] [address] [place], [place] [phone] Mackenzie Estrada MD [address] [place], [place] [phone] Social History Tobacco Use Types Packs/Day Years [...] Description 09/11/2024 9:45 AM EST Office Visit [facility] [address] [place] [address] 09/24/2024 3:15 PM EST Office Visit [facility] [address] [place] [address] Mackenzie Estrada MD [address] [place] [address] 10/01/2024 10:00 AM EST Office Visit [facility] [address] [place] [address] Libra Linder, OD [address] [place] [address] documented as of this encounter Goals Goal Patient Goal Type Associated Problems Recent Progress Patient-Stated? Author Quit using tobacco (cigarettes, smokeless, etc) Tobacco Use No Corey Lin, KelechiD documented as of this encounter Visit Diagnoses Not on filedocumented in this encounter Additional Health Concerns Assessment Noted Time PHQ-9 Depression Total Score: 2 04/30/20 10:41 AM EDT documented as of this encounter Care Teams Primary Care Pediatrician Relationship Specialty Start Date End Date Mackenzie Estrada MD [address] [place] [address] PCP - General Family Medicine 07/10/20 documented as of this encounter
--- OUTSIDE RECORDS SUMMARY | 2024-08-27 14:38 | XMS_ITS | Encounter Summary ---
Author Organization [employer] Address [address] [place] [address] Care Team Providers Care Shake Out Worker Name Role Phone Mackenzie Estrada MD Primary Care Provider [phone] Encounter Details Date Type Department Care Team (Late st Contact Info) Description 06/01/2023 Orders Only [facility] [address] [place], [place] [phone] Mackenzie Estrada MD [address] [place], [place] [phone] Encounter for smoking cessation counseling (Primary Dx) [...] 9:45 AM EST Office Visit [facility] [address] [place] [address] 09/24/2024 3:15 PM EST Office Visit [facility] [address] [place] [phone] Mackenzie Estrada MD [address] [place] [address] 10/01/2024 10:00 AM EST Office Visit [facility] [address] [place] [address] Kailash, Libra, OD [address] [place] [address] documented as of this encounter Goals Goal Patient Goal Type Associated Problems Recent Progress Patient-Stated? Author Quit using tobacco (cigarettes, smokeless, etc) Tobacco Use No Corey Lin, PharmFrancia documented as of this encounter Visit Diagnoses Diagnosis Encounter for smoking cessation counseling- Primary documented in this encounter Care Teams Shake Out Worker Relationship Specialty Start Date End Date Mackenzie Estrada MD [address] [place] [phone] PCP - General Family Medicine 07/10/20 documented as of this encounter
--- OUTSIDE RECORDS SUMMARY | 2024-08-27 14:38 | XMS_ITS | Encounter Summary ---
Author Organization [facility] [facility] Address [address] [place] [address] [address] [place] [address] Care Team Providers Care Assistant Center Director Name Role Phone Mackenzie Estrada MD Primary Care Provider [phone] Reason for Visit * Reason Comments Med Refill Encounter Details Date Type Department Care Team ([facility] Contact Info) Description 08/25/2022 Refill [facility] [address] [place] [address] [phone] Mackenzie Estrada MD [address] [place], [place] [phone] Pain in both hands Social History Tobacco [...] Upcoming Encounters Date Type Department Care Team ([facility] Contact Info) Description 09/11/2024 9:45 AM EST Office Visit [facility] [address] [place] [address] [phone] 09/24/2024 3:15 PM EST Office Visit [facility] [address] [place] [address] [phone] Mackenzie Estrada MD [address] [place], [place] [phone] 10/01/2024 10:00 AM EST Office Visit [facility] [address] [place], [place] [phone] Libra Linder, OD [address] [place], [place] [phone] documented as of this encounter Visit Diagnoses Diagnosis Pain in both hands documented in this encounter Care Teams Assistant Center Director Relationship Specialty Start Date End Date Mackenzie Estrada MD [address] [place], [place] [phone] PCP - General Family Medicine 07/10/20 documented as of this encounter
--- OUTSIDE RECORDS SUMMARY | 2024-08-27 14:38 | XMS_ITS | Clinical Summary ---
Author Organization [employer] Address [address] [facility] [address] [place] [address] Care Team Providers Care Rolling Chair Pusher Name Role Phone Mackenzie Estrada MD Primary Care Provider [phone] Allergies Active Allergy Reactions Criticality Noted Date Comments Rye (Diagnostic) 05/23/2020 Rye Oil Anaphylaxis High 07/19/2022 Morphine 06/02/2015 Other [...] 03/10/20 22 Active Sharps Container (GUARDIAN [employer]ps [employer] Coordinator) misc 06/15/20 22 Active Ascorbic Acid (vitamin C) 500 MG tablet TAKE 2 TABLETS BY MOUTH ONCE DAILY IN THE MORNING 12/22/19 23 Active Vitamin D High Potency 25 MCG (1000 UT) capsule Take 25 mcg by mouth in the morning. 12/11/19 23 Active beta carotene (vitamin A) 3 MG (66820 UT) capsule Take by mouth in the [...] MOUTH EVERY WEEK 02/24/20 24 Active Umeclidinium Vonore (Incruse Ellipta) 62.5 MCG/ACT aerosol powderIndicatio ns:Subacute [...] 7.5/325mg TID PRN Indication: Rheumatoid arthritis Last WIREWORKER SUPERVISOR Agreement: 06/12/24 Tier: II (Q3 months visits), [...] factor 01/26/2024 Overview (08/14/2024): - Following with [facility] Rheum: Dr. Castro Assessment & Plan (01/26/2024 [...] to go back to her previous dose, WIREWORKER SUPERVISOR nurse informed about my plan, I instructed [...] not as effective -I spoke today with [facility] staff today ( Shahla) and confirmed they do have remdesivir which will be the best options for tx for this pt , ER at [facility] are expecting pt for evaluation. Also pt [...] week as per Rheumatology. Rx sent to [facility] and they will continue refill for [...] thrombosis) 05/23/2020 Overview (09/28/2023): 01/2005 Right Subclavain senior care current use of anticoagulant 0 Personal history [...] PM EDT): Primarily managed by Rheum at [facility] Continue to take Oulimiant 2mg, Methotrexate 20mg [...] Type Department Care Team Description 08/22/2024 Refill [facility] [address] [place] [address] Mackenzie Estrada MD 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 ([facility]) 08/19/2024 Refill [facility] [address] [place] [address] Mackenzie Estrada MD 08/16/2024 Telephone [facility] [address] [place] [address] Hanny Lacy [place] Appointment Request 08/15/2024 Telephone [facility] [address] [place] [address] Mackenzie Estrada MD Durable Medical Equipment (10 In 1 pillow ) 08/14/2024 9:45 AM EST Office Visit [facility] [address] [place] [address] Sisi Kennedy FNP Long-term current use of opiate analgesic (Primary Dx); 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 ([facility]); Inflammatory arthritis 08/14/2024 Travel 07/27/2024 Orders Only GENERIC EXTERNAL DATA DEPARTMENT Provider, Generic External Data 07/26/[address] [address] Mackenzie Estrada MD 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 ([facility]) 07/20/2024 10:15 AM EST Office Visit [address] [address] Mark Yang MD Ear pain, bilateral (Primary Dx) 07/20/[address] [address] Mackenzie Estrada MD 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 ([facility]) 07/20/2024 Travel 07/20/[address] [address] Mackenzie Estrada MD 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 ([facility]) 07/20/[address] [address] Mackenzie Estrada MD Nurse Triage 07/12/2024 10:40 AM EST Office Visit [facility] [address] [place] [phone] Kat Yo MD Rheumatoid arthritis flare ([facility]) (Primary Dx); Right hip pain; Pain and swelling of left wrist; 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 ([facility]); Inflammatory arthritis 07/12/[address] [address] Mackenzie Estrada MD Nurse Triage 07/12/2024 Orders Only [facility] External Provider, [facility] 07/09/2024 Patient Outreach [facility] [address] [place] [address] Mackenzie Estrada MD Transition Of Care (Tcm); Error (VOID this visit) 07/09/2024 Telephone [facility] [address] [place], [place] [phone] Mackenzie Estrada MD Error (VOID this visit) 07/09/2024 Patient Outreach [address] [address] Mackenzie Estrada MD Transition Of Care (Tcm) 07/08/2024 Orders Only GENERIC EXTERNAL DATA DEPARTMENT Provider, Generic External Data 07/03/2024 10:45 AM EST Office Visit [address] [address] Ebony Daigle MD NSTEMI (non-ST elevated myocardial infarction) ([facility]/HCC) (Primary Dx); Epicondylitis elbow, medial, left; Tobacco dependence; Depressive disorder; 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 ([facility]); Rheumatoid arthritis involving multiple sites with positive rheumatoid factor ([facility]) 07/03/[address] [address] Mackenzie Estrada MD telephone call 07/03/2024 Travel 06/27/[address] [address] Liz Sommers, road mixer operator 06/22/[address] [address] Mackenzie Estrada MD 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 ([facility]) 06/15/[address] [address] Yaya Bee, KelechiD Appointment Request 06/15/[address] [address] Mackenzie Estrada MD Nurse Triage 06/14/2024 Patient Outreach [address] [phone] Mackenzie Estrada MD Transition Of Care (Tcm) (HDF- APPOINTMENT REMINDER ) 06/12/2024 9:00 AM EST Clinical Support [address] [address] Kaylene Samano, roller operator, continuous use of opioids (Primary Dx) 06/12/[address] [address] Kaylene Samano, RN BPI scoring 06/12/2024 Travel 06/12/2024 Orders Only GENERIC EXTERNAL DATA DEPARTMENT Provider, Generic External Data 06/12/2024 Telephone [facility] [address] [address] Sarika Palacios ANP 06/11/2024 3:00 PM EST Office Visit [facility] [address] [address] Sarika Palacios ANP Bilateral elbow joint pain (Primary Dx); Infection of elbow (CMS/HCC) 06/11/[address] [address] Mackenzie Estrada MD Nurse Triage 06/11/2024 Patient Outreach [address] [address] Davy Brown RN Transition Of Care (Tcm) 06/08/2024 Orders Only GENERIC EXTERNAL DATA DEPARTMENT Provider, Generic External Data 05/30/2024 Patient Outreach [address] [address] Mackenzie Estrada MD Transition Of Care (Tcm) (HDF- scheduled and SDOH screening completed on 12/20/2023) 05/30/[address] [address] Mackenzie Estrada MD 05/28/[address] [address] Mackenzie Estrada MD Med Refill 05/28/[address] [address] Mackenzie Estrada MD FYI 05/28/2024 Patient Outreach [address] [address] Mackenzie Estrada MD Transition Of Care (Tcm) [...] 9:45 AM EST Office Visit [facility] [address] [place] [address] 09/24/2024 3:15 PM EST Office Visit [facility] [address] [place] [address] Mackenzie Estrada MD [address] [place] [address] 10/01/2024 10:00 AM EST Office Visit [facility] [address] [place] [address] Libra Linder, OD [address] [place] [address] Health Maintenance Due Date Last Done Comments [...] Unknown 08/14/2024 1:47 PM EST Sisi Kennedy MEMBERSHIP COUNSELOR POINT OF CARE TEST ENTER/EDIT ORDERABLES Final Result * XR Clavicle Left (07/27/2024 7:24 AM EST) Anatomical Region Laterality Modality Body, Clavicle Left Radiographic Rin ging 07/27/2024 7:24 AM EST Narrative 07/27/2024 9:09 AM EST ? [facility] ?[address] ?[place] [address] ?XRay Report ? Signed ? Patient: Ovidio Lacy,Ginette ?MR ?? #: [id number] ? : 1975 ?Acct:[id number] ? Age/Sex: 49 / F ?ADM Date: 12/27/24 ? Loc: HO.ED ? Attending Dr: ? Ordering Physician: Jana Mcdaniel ?? Date of Service: 07/27/24 ?? Procedure(s): XR clavicle LT ?? Accession Number(s): [id number] ? cc: Mackenzie Estrada; Jana Mcdaniel ? [...] ? DD/ 3 ? TD/TT: 07/27/24733 ? College Professor: ? Procedure Note Deepa Padgett - 07/27/2024 [place] [address] XRay Report Signed Patient: Ginette Arceo #: [id number] : 1975Acct:[id number] Age/Sex: 49 / FADM Date: 07/27/24 Loc: HO.ED Attending Dr: Ordering Physician: Jana Mcdaniel Date of Service: 07/27/24 Procedure(s): XR clavicle LT Accession Number(s): [id number] cc: Mackenzie Estrada; Jana Mcdaniel EXAMINATION: XR [...] in OV> 07/27/2405 DD/ 3 TD/TT: 07/27/24733 College Professor: us [facility] External Provider IMG XR PROCEDURES Final Result * XR Shoulder 2+ Views Left (07/27/2024 7:20 AM EST) Anatomical Region Laterality Modality Upper Extremities, Shoulder Left Radi ographic Imaging 07/27/2024 7:20 AM EST Narrative 07/27/2024 9:11 AM EST ? [facility] ?[address] ?[place] [address] ?XRay Report ? Signed ? Patient: Ovidio Lacy,Ginette ?MR ?? #: [id number] ? : 1975 ?Acct:[id number] ? Age/Sex: 49 / F ?ADM Date: 07/27/24 ? Loc: HO.ED ? Attending Dr: ? Ordering Physician: Jana Mcdaniel ?? Date of Service: 07/27/24 ?? Procedure(s): XR shoulder LT min 2V ?? Accession Number(s): [id number] ? cc: Mackenzie Estrada; Jana Mcdaniel ? [...] DD/ 0720 ? TD/TT: 07/27/24 0734 ? College Professor: ? Procedure Note Lorin, Image - 07/27/2024 [place] [address] XRay Report Signed Patient: Ginette ArceoMR #: [id number] : 1975Acct:[id number] Age/Sex: 49 / FADM Date: 07/27/24 Loc: HO.ED Attending Dr: Ordering Physician: Jana Mcdaniel Date of Service: 07/27/24 Procedure(s): XR shoulder LT min 2V Accession Number(s): [id number] cc: Mackenzie Estrada; Jana Mcdaniel EXAMINATION: XR [...] OV> 07/27/2409 DD/ 9 TD/TT: 07/27/24 0734 College Professor: [facility] External Provider IMG XR PROCEDURES Final Result * XR Chest 2 Views (07/27/2024 7:20 AM EST) Anatomical Region Laterality Modality Chest Radiographic Rin ging 07/27/2024 7:20 AM EST Narrative 07/27/2024 9:10 AM EST ? [facility] ?[address] ?[place] [address] ?XRay Report ? Signed ? Patient: Ovidio LacyGinette ?MR ?? #: [id number] ? : 1975 ?Acct:[id number] ? Age/Sex: 49 / F ?ADM Date: 07/27/24 ? Loc: HO.ED ? Attending Dr: ? Ordering Physician: Jana Mcdaniel ?? Date of Service: 07/27/24 ?? Procedure(s): XR chest 2V ?? Accession Number(s): [id number] ? cc: Mackenzie Estrada; Jana Mcdaniel ? [...] DD/ 0720 ? TD/TT: 07/27/24 0734 ? College Professor: ? Procedure Note Donotuseinterpreter, Image - 07/27/[address] [address] XRay Report Signed Patient: Ginette ArceoMR #: [id number] : 1975Acct:[id number] Age/Sex: 49 / FADM Date: 07/27/24 Loc: HO.ED Attending Dr: Ordering Physician: Jana Mcdaniel Date of Service: 07/27/24 Procedure(s): XR chest 2V Accession Number(s): [id number] cc: Mackenzie Estrada; Jana Mcdaniel EXAMINATION: XR [...] in OV> 07/27/24905 DD/ 9 TD/TT: 07/27/24733 College Professor: us [facility] External Provider IMG XR PROCEDURES Final Result * High Sensitivity Troponin I (07/27/2024 1:09 AM EST) Only the most recent of4 resultswithin the time period is included. TROPONIN I HIGH SENSITIVITY <2.7 <3.5 - 17.0 ng/L [facility] Comment:The Shea high sens itivity Troponin-I results should beused in conjunction with other diagnostic information suchas ECG, clinical observations and information, and patientsymptoms to aid in the diagnosis of VA. 07/27/2024 1:09 AM EST 07/27/2024 1:19 AM EST us Generic External Data Provider LAB BLOOD ORDERAB LES Final Result [facility] [address] [place] [phone] * (ABNORMAL) CBC auto differential (07/27/2024 1:09 AM EST) Only the most recent of3 resultswithin the time period is included. White Blood Count 4.9 4.8 - 10.8 X10*3/uL [facility] Red Blood Count 3.62(L) 4.20 - 5.50 X10*6/uL [facility] Hemoglobin 10.2(L) 12.0 - 16.0 g/dl [facility] Hematocrit 31.7(L) 37.0 - 47.0 % [facility] Mean Corpuscular Volume 87.6 80.0 - 98.0 fL [facility] Mean Corpuscular Hemoglobin 28.2 27.0 - 33.0 pg [facility] Mean Corpuscular HGB Conc 32.2 31.0 - 35.0 g/dl [facility] Red Cell Distribution Width 14.0 11.0 - 16.0 % [facility] Platelet Count 300 160 - 400 X10*3/uL [facility] Mean Platelet Volume 10.1 9.4 - 12.3 fL [facility] Neutrophils Percent Auto 61.2 45 - 73 % [facility] Imm Gran Pct Auto 0.2 0.0 - 0.4 % [facility] Lymphocytes Percent Auto 29.7 20 - 40 % [facility] Monocytes Percent Auto 7.1 2 - 11 % [facility] Eosinophils Percent Auto 1.6 0 - 4 % [facility] Basophils Percent Auto 0.2 0 - 2 % [facility] NRBC Pct Auto 0.0 0.0 - 0.2 /100WBC [facility] Neutrophils Absolute Auto 3.0 2.0 - 8.3 x10*3/uL [facility] Imm Gran Abs Auto 0.01 0.00 - 0.03 X10*3/uL [facility] Lymphocytes Absolute Auto 1.5 1.2 - 4.9 X10*3/uL [facility] Monocytes Absolute Auto 0.4 0.1 - 1.2 X10*3/uL [facility] Eosinophils Absolute Auto 0.1 0.0 - 0.4 X10*3/uL [facility] Basophils Absolute Auto 0.0 0.0 - 0.2 X10*3/uL [facility] NRBC Abs Auto 0.000 0.0 - 0.012 X10*3/uL [facility] 07/27/2024 1:09 AM EST 07/27/2024 1:19 AM EST us Generic External Data Provider LAB BLOOD ORDERAB LES Final Result [facility] [address] [place] [phone] * (ABNORMAL) Comprehensive Metabolic Panel (07/27/2024 1:09 AM EST) Only the most recent of2 resultswithin the time period is included. Sodium 140 135 - 145 mmol/L [facility] Potassium 3.1(L) 3.3 - 5.1 mmol/L [facility] Chloride 105 96 - 108 mmol/L [facility] Carbon Dioxide 23 22 - 29 mmol/L [facility] Anion Gap 15 12 - 20 [facility] Urea Nitrogen (BUN) 11 9 - 16 mg/dL [facility] Creatinine, Serum 0.73 0.5 - 1.4 mg/dL [facility] Creatinine Clr Calc Pharmacy 98.5 [facility] Comment:Provided height and weight: 162.56 cm,83.5 kg.eGFR (calculated from the MDRD study equation) and eCrCl(calculated from the Cockcroft-Gault equation) are based ondifferent parameters and may not yield comparable results.If eCrCl result is absurd, please check patient'sheight/weight. Estimated Glomerular Filt Rate >60 [facility] Comment:Chronic Kidney Disea se: Estimated GFR < 60 mL/min/[id number] Kidney Disease: Estimated GFR < 15 mL/min/1.73m2 Glucose 107 60 - 115 mg/dL [facility] Calcium 9.2 8.4 - 10.2 mg/dL [facility] Bilirubin, Total 0.5 0.0 - 1.0 mg/dL [facility] Aspartate Amino Transferase 48(H) 5 - 31 U/L [facility] Alanine Aminotransferase 32(H) 0 - 31 U/L [facility] Total Protein 8.5(H) 6.5 - 8.0 g/dL [facility] Albumin Level 3.7 3.5 - 5.0 g/dL [facility] Alkaline Phosphatase 151(H) 39 - 117 U/L [facility] 07/27/2024 1:09 AM EST 07/27/2024 1:19 AM EST us Generic External Data Provider LAB BLOOD ORDERAB LES Final Result Performing Organization Address City/State/[facility] Co de Phone Number [facility] [address] [place] [phone] * XR Hip 2 or 3 Views Right (07/12/2024 3:30 AM EST) Anatomical Region Laterality Modality Lower Extremities, Hip Right Radiograp hic Imaging 07/12/2024 3:30 AM EST Narrative 07/12/2024 4:26 AM EST ? [facility] ?[address] ?[place] [address] ?XRay Report ? Signed ? Patient: Ovidio Lacy,Ginette ?MR ?? #: [id number] ? : 1975 ?Acct:[id number] ? Age/Sex: 48 / F ?ADM Date: 12/12/24 ? Loc: HO.ED ? Attending Dr: ? Ordering Physician: Megan Pathak DO ?? Date of Service: 07/12/24 ?? Procedure(s): XR hip RT min 2V ?? Accession Number(s): [id number] ? cc: Megan Pathak DO; [facility] ? EXAMINATION: ?? XR HIP, RIGHT ? [...] right thigh coursing beyond the image ?? [id number]. Surgical clip is projected over the left [...] DD/ 0330 ? TD/TT: 07/12/24 0350 ? College Professor: EF ? Procedure Note Deepa Padgett - 07/12/[address] [address] XRay Report Signed Patient: Ginette ArceoMR #: [id number] : 1975Acct:[id number] Age/Sex: 48 / FADM Date: 07/12/24 Loc: HO.ED Attending Dr: Ordering Physician: Megan Pathak DO Date of Service: 07/12/24 Procedure(s): XR hip RT min 2V Accession Number(s): [id number] cc: ZoMegan GONZALEZ; [facility] EXAMINATION: XR HIP, RIGHT CLINICAL INFORMATION: pain [...] the right thigh coursing beyond the image [id number]. Surgical clip is projected over the left [...] 07/12/24 0422 DD/ 0330 TD/TT: 07/12/24 0350 College Professor: EF [facility] External Provider IMG XR PROCEDURES Edited Result - Final * XR Elbow 3+ Views Left (06/12/2024 11:40 AM EST) Anatomical Region Laterality Modality Upper Extremities, Elbow Left Radiogr aphic Imaging 06/12/2024 11:4 0 AM EST Narrative 06/12/2024 12:25 PM EST ? [facility] ?[address] ?[place] [address] ?XRay Report ? Signed ? Patient: Ovidio Lacy,Ginette ?MR ?? #: [id number] ? : 1975 ?Acct:[id number] ? Age/Sex: 48 / F ?ADM Date: 11/12/24 ? Loc: HO.ED ? Attending Dr: ? Ordering Physician: Treasure Clemons ?? Date of Service: 06/12/24 ?? Procedure(s): XR elbow LT min 3V ?? Accession Number(s): [id number] ? cc: Mackenzie Estrada; Treasure Clemons ? [...] DD/ 1140 ? TD/TT: 06/12/24 1150 ? College Professor: ? Procedure Note Deepa Padgett - 06/12/2024 [place] [address] XRay Report Signed Patient: Ginette ArceoMR #: [id number] : 1975Acct:[id number] Age/Sex: 48 / FADM Date: 06/12/24 Loc: HO.ED Attending Dr: Ordering Physician: Treasure Clemons Date of Service: 06/12/24 Procedure(s): XR elbow LT min 3V Accession Number(s): [id number] cc: Mackenzie Estrada; Treasure Clemons EXAMINATION: XR [...] 06/12/24 1222 DD/ 1140 TD/TT: 06/12/24 1150 College Professor: [facility] External Provider IMG XR PROCEDURES Final Result * (ABNORMAL) Sed Rate by Modified Roman (06/12/2024 11:32 AM EST) Erythrocyte Sedimentation Rate 91(H) 0 - 20 MM/HR [facility] Comment:Patients with polycy themia and many hemoglobin abnormalitiesmay have depressed sed rates whereas patients with anemiamay have elevated sed rates. 06/12/2024 11:3 2 AM EST 06/12/2024 11:39 AM EST Generic External Data Provider LAB BLOOD ORDERAB LES Final Result Performing Organization Address [facility] Co de Phone Number [facility] [address] [place] [phone] * (ABNORMAL) C-reactive Protein (06/12/2024 11:32 AM EST) C Reactive Protein 9.98(H) < or = 0.50 mg/dL [facility] 06/12/2024 11:3 2 AM EST 06/12/2024 11:39 AM EST Generic External Data Provider LAB BLOOD ORDERAB LES Final Result Performing Organization Address [facility] Co de Phone Number [facility] [address] [place] [phone] * Uric acid (06/12/2024 11:32 AM EST) Uric Acid 4.6 2.4 - 5.7 mg/dL [facility] 06/12/2024 11:3 2 AM EST 06/12/2024 11:39 AM EST us Generic External Data Provider LAB BLOOD ORDERAB LES Final Result Performing Organization Address [facility] de Phone Number [facility] [address] [place] [phone] * (ABNORMAL) B Type Natriuretic Peptide (BNP) (06/12/2024 11:32 AM EST) Only the most recent of2 resultswithin the time period is included. Pathologist [facility] B Type Natriuretic Peptide 266(H) <100 pg/mL [facility] Comment:For those patients w ho are being treated with Natrecor(nesiritide, recombinant BNP), BNP testing should beperformed at least two hours post treatment in order toensure that only endogenous levels of BNP are detected. 06/12/2024 11:3 2 AM EST 06/12/2024 11:39 AM EST us Generic External Data Provider LAB BLOOD ORDERAB LES Final Result Performing Organization Address [facility] Co de Phone Number [facility] [address] [place] [phone] * Lactic Acid (06/12/2024 11:32 AM EST) Lactic Acid 1.6 0.5 - 2.0 mmol/L [facility] 06/12/2024 11:3 2 AM EST 06/12/2024 11:39 AM EST us Generic External Data Provider LAB BLOOD ORDERAB LES Final Result Performing Organization Address [facility] Co de Phone Number [facility] [address] [place] [phone] * (ABNORMAL) Hepatic Function Panel (06/12/2024 11:32 AM EST) Pathologist [facility] Bilirubin, Total 0.6 0.0 - 1.0 mg/dL [facility] Bilirubin, Direct 0.3 0.0 - 0.5 mg/dL [facility] Aspartate Amino Transferase 65(H) 5 - 31 U/L [facility] Alanine Aminotransferase 37(H) 0 - 31 U/L [facility] Total Protein 8.9(H) 6.5 - 8.0 g/dL [facility] Albumin Level 3.9 3.5 - 5.0 g/dL [facility] Alkaline Phosphatase 117 39 - 117 U/L [facility] 06/12/2024 11:3 2 AM EST 06/12/2024 11:39 AM EST Generic External Data Provider LAB BLOOD ORDERAB LES Final Result Performing Organization Address [facility] de Phone Number [facility] [address] [place] [phone] * (ABNORMAL) Basic Metabolic Panel (06/12/2024 10:57 AM EST) Pathologist [facility] Sodium 136 135 - 145 mmol/L [facility] Potassium 3.9 3.3 - 5.1 mmol/L [facility] Chloride 103 96 - 108 mmol/L [facility] Carbon Dioxide 24 22 - 29 mmol/L [facility] Anion Gap 13 12 - 20 [facility] Urea Nitrogen (BUN) 15 9 - 16 mg/dL [facility] Creatinine, Serum 0.84 0.5 - 1.4 mg/dL [facility] Creatinine Clr Calc Pharmacy 91.5 [facility] Comment:Provided height and weight: 167.64 cm,86.1 kg.eGFR (calculated from the MDRD study equation) and eCrCl(calculated from the Cockcroft-Gault equation) are based ondifferent parameters and may not yield comparable results.If eCrCl result is absurd, please check patient'sheight/weight. Estimated Glomerular Filt Rate >60 [facility] Comment:Chronic Kidney Disea se: Estimated GFR < 60 mL/min/1.16w8Dgoujp Kidney Disease: Estimated GFR < 15 mL/min/1.73m2 Glucose 134(H) 60 - 115 mg/dL [facility] Calcium 9.6 8.4 - 10.2 mg/dL [facility] 06/12/2024 10:5 7 AM EST 06/12/2024 11:04 AM EST Generic External Data Provider LAB BLOOD ORDERAB LES Final Result Performing Organization Address [facility] Co de Phone Number [facility] [address] [place] [address] [phone] * (ABNORMAL) Prothrombin Time-INR (06/08/2024 12:45 PM EST) Prothrombin Time 13.5(H) 10.9 - 12.4 SEC [facility] INTERNATIONAL NORM RATIO 1.2(H) 0.9 - 1.1 [facility] Comment:INTERNATIONAL NORMAL IZED RATIO (INR) REFERENCE [...] 5 PM EST 06/08/2024 12:49 PM EST [employer] External Data Provider LAB BLOOD ORDERAB LES Final Result Performing Organization Address [facility] Co de Phone Number [facility] [address] [place] [phone] * Magnesium (06/08/2024 12:45 PM EST) Magnesium 2.2 1.6 - 2.6 mg/dL [facility] 06/08/2024 12:4 5 PM EST 06/08/2024 12:49 PM EST us Generic External Data Provider LAB BLOOD ORDERAB LES Final Result [facility] [address] [place] [phone] * XR Chest 1 View (06/08/2024 12:37 PM EST) Anatomical Region Laterality Modality Chest Radiographic Rin ging 06/08/2024 12:3 7 PM EST Narrative 06/08/2024 1:13 PM EST ? [facility] ?[address] ?[place] [address] ?XRay Report ? Signed ? Patient: Ginette Arceo ?MR ?? #: [id number] ? : 1975 ?Acct:[id number] ? Age/Sex: 48 / F ?ADM Date: 06/08/24 ? Loc: HO.ED ? Attending Dr: ? Ordering Physician: Margo Sanchez ?? Date of Service: 06/08/24 ?? Procedure(s): XR chest 1V ?? Accession Number(s): [id number] ? cc: Mackenzie Estrada; Margo Sanchez ? [...] DD/ 1237 ? TD/TT: 06/08/24 1257 ? College Professor: ? Procedure Note Donrere, Image - 06/08/[address] [address] XRay Report Signed Patient: Ginette ArceoMR #: [id number] : 1975Acct:[id number] Age/Sex: 48 / FADM Date: 06/08/24 Loc: .ED Attending Dr: Ordering Physician: Margo Sanchez Date of Service: 06/08/24 Procedure(s): XR chest 1V Accession Number(s): [id number] cc: Mackenzie Estrada; Margo Sanchez EXAMINATION: XR CHEST CLINICAL INFORMATION: [...] 06/08/2024 01:10 PM EST Dictated By: Madan Ney MD Signed By: <Electronically signed by Madan Rose MDin OV> 06/08/24 1310 DD/ 1237 TD/TT: 06/08/24 1257 College Professor: us [facility] External Provider IMG XR PROCEDURES Final Result * Hepatitis C Ab (04/11/2024 10:26 AM EDT) Hepatitis C Antibody Nonreactive Nonreactive [facility] Comment:Antibodies to HCV no t detected; does not exclude early acuteHCV infection. Blood Venous blood specimen / Unknown 04/11/2024 10:26 AM EDT 04/11/2024 11:19 AM EDT Mackenzie Estrada MD LAB BLOOD ORDERABLES Final Res ult Performing Organization Address City/[facility]/ZIP Co de Phone Number [facility] [address] [place] [address] [phone] * HIV-1/2 Antigen and Antibodies, Fourth Generation, with Reflexes (04/11/2024 10:26 AM EDT) HIV AB/AG Nonreactive Nonreactive [facility] Comment:HIV-1 p24 Ag and/or HIV-1/HIV-2 Ab not detected.A test result that is nonreactive does not exclude thepossibility of exposure to or infection with HIV-1 and/orHIV-2. Nonreactive results in this assay for individualswith prior exposure to HIV-1 and/or HIV-2 may be due toantigen and antibody levels that are below the limit ofdetection of this assay.The [employer] HIV Ag/Ab Combo assay result andsupplemental assay results should be interpreted inconjunction with the patient's clinical presentation,history and other laboratory results. If the results areinconsistent with clinical evidence, additional testing issuggested to confirm the result. Blood Venous blood specimen / Unknown 04/11/2024 10:26 AM EDT 04/11/2024 11:19 AM EDT Mackenzie Estrada MD LAB BLOOD ORDERABLES Final Res ult Performing Organization Address City/[facility]/ZIP Co de Phone Number [facility] [address] [place] [phone] [phone] * HPV mRNA E6/E7 w/Reflex to HPV Genotypes 16, 18/45 (09/29/2023 12:26 PM EST) HPV nRNA E6/E7 Not Detected Not Detected [facility] Comment:Methodology: Transcr iption-Mediated AmplificationThis assay detects E6/E7 viral messenger RNA (mRNA) from 14high-risk HPV types (16,18,31,33,35,39,45,51,52,56,58,59,66,68).Cervical sources are required for HPV testing.If a vaginal source from a patient who has had atotal hysterectomy with removal of cervix wassubmitted, please contact the testing laboratoryfor alternative testing options.For additional information, please refer tohttp://education.[employer] PTY/faq/FJP237y2(This link if provided for information/educational purposes only.)THIS TEST WAS PERFORMED AT:[employer] [place] [phone] GALVAN MD HPV mRNA E6/E7 [facility] HPV 16 RNA [facility] HPV 18/45 RNA [facility] 09/29/2023 12:2 6 PM EST 09/30/2023 11:30 AM EST Mackenzie Estrada MD LAB CYTOLOGY ORDERABLES Final Result Performing Organization Address [facility]/State/[facility] Co de Phone Number [facility] [address] [place] [phone] * Pap Smear (09/29/2023 12:26 PM EST) 09/29/2023 12:2 6 PM EST 09/30/2023 11:30 AM EST Narrative [facility] - 10/12/2023 4:18 PM EDT ----- ------- Name: Ovidio LacyGinette ?Age/Sex: 48/F ? : 1975 Unit#: [id number] ?? Attend Dr: Mackenzie Estrada ?Re09/29/23 ?Status: DEP REF ? Location: HO.HHCX ? Disch: ? ----- ------- SPEC : [id number] ? RECD: 09/30/23 ? STATUS: ??SOUT ? REQ NUM: [id number] ? BHAVIN: 09/29/23-1226 ? SUBM DR: Mackenzie Estrada ? ENTERED: ??09/30/23 ?SP TYPE: Pap Smr ?OTHR DR: ? ORDERED: ??Pap Smear ? Interpretation ?? Satisfactory for evaluation. ?? Negative for intraepithelial lesion or malignancy. ?HPV mRNA E6/E7: ?NOT DETECTED ? This assay detects E6/E7 viral messenger RNA (mRNA) from 14 high-risk HPV types (16, 18, ?? 31, 33, 35, 39, 45, 51, 52, 56, 58, 59, 66, 68) ?? HPV testing performed by [employer] [place], [place]. ??See reference laboratory ?? portion of the EMR for entire report. ?Clinical Information LMP: Heavy menstrual bleeding past two weeks Previous PAP test: Unknown date/findings Other history: ? Material Received ?? ThinPrep-Cervical ----- ------- Signed (signature on file) BARB Hawley (ASCP) 10/12/23 2338 ? ----- ------- ? END OF REPORT ? us Mackenzie Estrada MD LAB CYTOLOGY ORDERABLES Final Result [facility] [address] [place] [phone] * Mammography Report 1 (10/09/2021 12:05 [...] - 10/28/2017 Recommended 10 year follow up ([facility]) Historical Provider HEALTH MAINTENANCE Edited Result - Final from Last 3 Months or Most Recently Relevant to Health Maintenance Insurance [facility] [facility] STAND ADULT Care Teams Rolling Chair Pusher Relationship Specialty Start Date End Date Mackenzie Estrada MD [address] [place] [phone] PCP - General Family Medicine 07/10/20
--- OUTSIDE RECORDS SUMMARY | 2024-08-27 14:38 | XMS_ITS | Encounter Summary ---
Author Organization [email or web address] Address [address] [place] [address] Care Team Providers Care String Cutter Name Role Phone Mackenzie Estrada MD Primary Care Provider [phone] Reason for Visit * Reason Comments Med Refill Encounter Details Date Type Department Care Team ([facility] st Contact Info) Description 06/02/[address] [facility] MEDICINE [address] [place], [place] [phone] Mackenzie Estrada MD [address] [place], [place] [phone] Pain in both hands Social History Tobacco [...] AM EST Office Visit [facility] MED[facility]INE [address] [place] [address] 09/24/2024 3:15 PM EST Office Visit [facility] MEDICINE [address] [place] [phone] Mackenzie Estrada MD [address] [place] [address] 10/01/2024 10:00 AM EST Office Visit [facility] OPTOMETRY [address] [place] [address] Kailash, Libra, OD [address] [place] [address] documented as of this encounter Goals Goal Patient Goal Type Associated Problems Recent Progress Patient-Stated? Author Quit using tobacco (cigarettes, smokeless, etc) Tobacco Use No Corey Lin, PharmD documented as of this encounter Visit Diagnoses Diagnosis Pain in both hands documented in this encounter Care Teams String Cutter Relationship Specialty Start Date End Date Mackenzie Estrada MD [address] [place] [phone] PCP - General Family Medicine 07/10/20 documented as of this encounter
--- OUTSIDE RECORDS SUMMARY | 2024-08-27 14:38 | XMS_ITS | Encounter Summary ---
Author Organization [employer] Address [address] [place] [address] Care Team Providers Care Medical Research Tech Name Role Phone Mackenzie Estrada MD Primary Care Provider [phone] Reason for Visit * Reason Comments Med Refill Encounter Details Date Type Department Care Team ([facility] st Contact Info) Description 01/12/2024 Refill [facility] [address] [place], [place] [phone] Mackenzie Estrada MD [address] [place], [place] [phone] Rheumatoid arthritis involving multiple sites with positive rheumatoid factor ([facility]) Social History Tobacco Use Types Packs/Day [...] EST Office Visit [facility] [address] [place] [address] 09/24/2024 3:15 PM EST Office Visit [facility] [address] [place] [address] Mackenzie Estrada MD [address] [place] [address] 10/01/2024 10:00 AM EST Office Visit [facility] OPT[facility]ETRY [address] [place] [address] Libra Linder, OD [address] [place] [address] documented as of this encounter Goals Goal Patient Goal Type Associated Problems Recent Progress Patient-Stated? Author Quit using tobacco (cigarettes, smokeless, etc) Tobacco Use No Corey Lin, KelechiD documented as of this encounter Visit Diagnoses Diagnosis Rheumatoid arthritis involving multiple sites with positive rheumatoid factor ([facility]) documented in this encounter Care Teams Medical Research Tech Relationship Specialty Start Date End Date Mackenzie Estrada MD [address] [place] [phone] PCP - General Family Medicine 07/10/20 documented as of this encounter
--- OUTSIDE RECORDS SUMMARY | 2024-08-27 14:38 | XMS_ITS | Encounter Summary ---
Author Organization [employer] [facility] Address [address] [facility] [address] [place] [address] Care Team Providers Care Personal Fitness Trainer Name Role Phone Mackenzie Estrada MD Primary Care Provider [phone] Reason for Visit * Reason Comments Med Refill Encounter Details Date Type Department Care Team ([facility] Contact Info) Description 07/28/2022 Refill [facility] MEDICINE [address] [place] [address] Mackenzie Estrada MD [address] [place] [address] Pain in both hands Social History Tobacco [...] Visit [facility] MEDICINE [address] [place] [address] 09/24/2024 3:15 PM EST Office Visit [facility] MEDICINE [address] [place] [address] Mackenzie Estrada MD [address] [place] [address] 10/01/2024 10:00 AM EST Office Visit [facility] OPTOMETRY [address] [place] [phone] Libra Linder, OD [address] [place] [address] documented as of this encounter Visit Diagnoses Diagnosis Pain in both hands documented in this encounter Care Teams Personal Fitness Trainer Relationship Specialty Start Date End Date Mackenzie Estrada MD [address] [place] [address] PCP - General Family Medicine 07/10/20 documented as of this encounter
--- OUTSIDE RECORDS SUMMARY | 2024-08-27 14:38 | XMS_ITS | Encounter Summary ---
Author Organization [employer] Address [address] [place] [address] Care Team Providers Care Tar Heater Operator Name Role Phone Mackenzie Estrada MD Primary Care Provider Reason for Visit * Reason Comments Med Refill Encounter Details Date Type Department Care Team ([facility] st Contact Info) Description 06/03/2023 Refill [facility] MEDICINE [address] [place], [place] [phone] Mackenzie Estrada MD [address] [place], [place] [phone] Pain in both hands Social History Tobacco [...] Office Visit [facility] MEDICINE [address] [place] [phone] 09/24/2024 3:15 PM EST Office Visit [facility] MEDICINE [address] [place] [phone] Mackenzie Estrada MD [address] [place] [address] 10/01/2024 10:00 AM EST Office Visit [facility] OPTOMETRY [address] [place] [address] Kailash, Libra, OD [address] [place] [address] documented as of this encounter Goals Goal Patient Goal Type Associated Problems Recent Progress Patient-Stated? Author Quit using tobacco (cigarettes, smokeless, etc) Tobacco Use No Corey Lin, PharmD documented as of this encounter Visit Diagnoses Diagnosis Pain in both hands documented in this encounter Care Teams Tar Heater Operator Relationship Specialty Start Date End Date Mackenzie Estrada MD [address] [place] [phone] PCP - General Family Medicine 07/10/20 documented as of this encounter
--- OUTSIDE RECORDS SUMMARY | 2024-08-27 14:38 | XMS_ITS | Encounter Summary ---
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 [...] the past 12 months, has t he [address], gas, oil or water company threatened to [...] [facility] MEDICINE [address] [place] [address] 09/24/2024 3:15 PM EST Office Visit [facility] MEDICINE [address] [place] [address] Mackenzie Estrada MD [address] [place] [address] 10/01/2024 10:00 AM EST Office Visit [facility] OPTOMETRY [address] [place] [address] Libra Linder, OD [address] [place] [address] documented as of this encounter Goals Goal [...] documented as of this encounter Care Teams Asp Developer Relationship Specialty Start Date End Date Mackenzie Estrada MD [address] [place] [address] PCP - General Family Medicine 07/10/20 documented as of this encounter
== END 2024-08-27 10:50 | disposition home or self-care (01) ==
PROVIDERS: Visit Provider Internal Medicine Gastroenterology
DX: R19.4 Change in bowel habit (principal)
CPT/HCPCS: 99213

== ENCOUNTER 2024-09-14 10:07 | Outpatient (REF) | payer MEDICAID, SELFPAY ==
--- NOTE | ~2024-09-14 | XR_ITS ---
CLINICAL HISTORY: M79.7 - Fibromyalgia 3 view left elbow Comparison: CR/SR - XR ELBOW LT MIN 3V - 06/12/2024 11:50 AM EST Findings: Bones intact. No dislocations. No significant arthritic change or erosions. No joint effusion. No radiopaque foreign body. IMPRESSION: 1. No acute findings This document has been electronically signed by: Arturo Woodson MD on 09/15/2024 08:07:42
--- NOTE | ~2024-09-14 | XR_ITS ---
CLINICAL HISTORY: M79.7 - Fibromyalgia 3 view left humerus Comparison: None Findings: No fractures or dislocations. No significant arthritic change. No radiopaque foreign body. IMPRESSION: 1. Normal left humerus This document has been electronically signed by: Arturo Woodson MD on 09/15/2024 08:00:53
--- NOTE | ~2024-09-14 | XR_ITS ---
CLINICAL HISTORY: M79.7 - Fibromyalgia 2 view left scapula Comparison: None Findings: No fractures or dislocations. No significant loss of joint space or osteophytes. No erosions. No radiopaque foreign body. IMPRESSION: 1. No acute findings This document has been electronically signed by: Arturo Woodson MD on 09/15/2024 08:04:58
--- OUTSIDE RECORDS SUMMARY | 2024-09-14 11:55 | XMS_ITS | Encounter Summary ---
Author Organization [employer] Address [address] [facility] [address] [address] 7t [place] [address] Care Team Providers Care Geophysical Data Technician Name Role Phone Mackenzie Estrada MD Primary Care Provider [phone] Reason for Visit * Reason Onset Date Comments Appointment Request 08/16/2024 Encounter Details Date Type Department Care Team ([facility] Contact Info) Description 08/16/2024 Telephone [facility] MEDICINE 230 [place], [place] [phone] Hanny Lacy [place] Appointment Request Social History [...] Description 09/24/2024 3:15 PM EST Office Visit [facility] MEDICINE [address] [place] [address] Mackenzie Estrada MD 230 [place] [address] 10/01/2024 10:00 AM EST Office Visit [facility] OPTOMETRY [address] [place] [address] Libra Linder OD 230 [place] [address] 11/06/2024 9:45 AM EDT Office Visit [facility] MEDICINE [address] [place] [address] documented as of this encounter Goals Goal [...] documented as of this encounter Care Teams Geophysical Data Technician Relationship Specialty Start Date End Date Mackenzie Estrada MD [address] [place] [address] PCP - General Family Medicine 07/10/20 documented as of this encounter
--- OUTSIDE RECORDS SUMMARY | 2024-09-14 11:55 | XMS_ITS | Encounter Summary ---
Author Organization [employer] Address [address] [facility] [address] 7t [place] [address] Care Team Providers Care Rubber Chemist Name Role Phone Mackenzie Estrada MD Primary Care Provider [phone] Reason for Visit * Reason Comments Med Refill Encounter Details Date Type Department Care Team ([facility] Contact Info) Description 09/07/2024 Refill [facility] MEDICINE 230 [place], [place] [phone] Mackenzie Estrada MD 230 [place], [place] [phone] Social History Tobacco Use Types Packs/Day Years [...] Description 09/24/2024 3:15 PM EST Office Visit [facility] MEDICINE [address] [place] [address] Mackenzie Estrada MD [address] [place] [address] 10/01/2024 10:00 AM EST Office Visit [facility] OPTOMETRY [address] [place] [address] Kailash, Libra, OD 230 [place] [address] 11/06/2024 9:45 AM EDT Office Visit [facility] MEDICINE [address] [place] [address] documented as of this encounter Goals Goal Patient Goal Type Associated Problems Recent Progress Patient-Stated? Author Quit using tobacco (cigarettes, smokeless, etc) Tobacco Use No Corey Lin, PharmD documented as of this encounter Visit Diagnoses Not on filedocumented in this encounter Additional Health Concerns Assessment Noted Time PHQ-9 Depression Total Score: 2 04/30/20 10:41 AM EDT documented as of this encounter Care Teams Rubber Chemist Relationship Specialty Start Date End Date Mackenzie Estrada MD 230 [place] [address] PCP - General Family Medicine 07/10/20 documented as of this encounter
--- OUTSIDE RECORDS SUMMARY | 2024-09-14 11:55 | XMS_ITS | Encounter Summary ---
Author Organization [employer] Address [address] [facility] 7t [place] [address] Care Team Providers Care Platform Beater Name Role Phone Mackenzie Estrada MD Primary Care Provider [phone] Encounter Details Date Type Department Care Team (Late Contact Info) Description 03/04/2023 Orders Only [facility] MEDICINE 230 [place], [place] [phone] Kat Yo MD 230 [place], [place] [phone] Social History Tobacco Use Types Packs/Day Years [...] Description 09/24/2024 3:15 PM EST Office Visit [facility] MEDICINE [address] [place] [address] Mackenzie Estrada MD [address] [place] [address] 10/01/2024 10:00 AM EST Office Visit [facility] OPTOMETRY [address] [place], [place] [phone] Libra Linder, OD 230 [place] [address] 11/06/2024 9:45 AM EDT Office Visit [facility] MEDICINE [address] [place] [address] documented as of this encounter Visit Diagnoses Not on filedocumented in this encounter Care Teams Platform Beater Relationship Specialty Start Date End Date Mackenzie Estrada MD [address] [place] [address] PCP - General Family Medicine 07/10/20 documented as of this encounter
--- OUTSIDE RECORDS SUMMARY | 2024-09-14 11:55 | XMS_ITS | Clinical Summary ---
Author Organization [facility] Address [address] [place] [address] Care Team Providers Care Dye House Helper Name Role Phone Sanjay Cruz MD Primary Care Provi [facility] Surgical History Surgery Date Site/Laterality Comments OTHER [...] vein thrombosis); COMMENT: 01/2005 Right Subclavain terminal carman current use of anticoagulant 0 DX:terminal carman current use of anticoagulant Acute deep vein [...] age to complete this topic Care Teams Dye House Helper Relationship Specialty Start Date End Date Sanjay Cruz MD [address] [place] [phone] PCP - General Internal Medicine 04/09/20
--- OUTSIDE RECORDS SUMMARY | 2024-09-14 11:55 | XMS_ITS | Encounter Summary ---
Author Organization [employer] Address [address] [facility] [address] 7t [place] [address] Care Team Providers Care Switch Crew Supervisor Name Role Phone Mackenzie Estrada MD Primary Care Provider [phone] Encounter Details Date Type Department Care Team (Late st Contact Info) Description 08/14/2024 9:45 AM EST Office Visit [facility] MEDICINE 230 [place] [address] Sisi Kennedy FNP [address] [place], [place] [phone] Long-term current use of opiate analgesic (Primary [...] the past 12 months, has t he [employer], gas, oil or water [employer] threatened to shut off services in your [...] this encounter Progress Notes * Sisi Kennedy, POWER ELECTRONICS RESEARCH ENGINEER - 08/14/2024 9:45 AM EST Subjective: Ginette [...] History: Associated Diagnosis: Rheumatoid Arthritis Following with [facility] Rheumatology - Dr. Castro Per PCP Note: [...] involving right hand with positive rheumatoid factor ([facility]) Overview - Following with [facility] Rheum: Dr. Castro - [facility] request for 10-in-1 pillow on 08/14/24 Long-term current use of opiate analgesic - Primary Overview Medication: Percocet 7.5/325mg TID PRN Indication: Rheumatoid arthritis Last CYCLE DIRECTOR Agreement: 06/12/24 Current Assessment & Plan -Good [...] Somers RN - 08/14/2024 9:45 AM EST .CYCLE DIRECTOR supplemental nurse: PDMP reviewed today. Last fill date: 07/26/24 [...] Description 09/24/2024 3:15 PM EST Office Visit [facility] MED[facility]INE [address] [place] [address] Mackenzie Estrada MD [address] [place] [address] 10/01/2024 10:00 AM EST Office Visit [facility] OPTOMETRY [address] [place] [address] Libra Linder, OD 230 [place] [address] 11/06/2024 9:45 AM EDT Office Visit [facility] [address] [place] [address] documented as of this encounter Goals Goal [...] Unknown 08/14/2024 1:47 PM EST Sisi Kennedy POWER ELECTRONICS RESEARCH ENGINEER POINT OF CARE TEST ENTER/EDIT ORDERABLES Final [...] documented as of this encounter Care Teams Switch Crew Supervisor Relationship Specialty Start Date End Date Mackenzie Estrada MD [address] [place] [address] PCP - General Family Medicine 07/10/20 documented as of this encounter
--- OUTSIDE RECORDS SUMMARY | 2024-09-14 11:55 | XMS_ITS | Encounter Summary ---
Author Organization [employer] [facility] Address [address] [facility] 7t [place] [address] Care Team Providers Care Ship Engineer Name Role Phone Mackenzie Estrada MD Primary Care Provider [phone] Reason for Referral * Imaging (Routine) - Closed Specialty Diagnoses / Procedures Referred By Contac t Referred To Contact Radiology Diagnoses Abnormal ultrasound of pelvis Procedures MR Pelvis w/ and w/o Contrast Mackenzie Estrada MD [address] [place] [address] Phone: tel: fax: [address] Phone: tel: fax: Referral ID Status Reason Start Date Expiration Date Visits Re quested Visits Authorized [id number] Closed 10/31/2023 10/30/2024 1 1 Encounter Details Date Type Department Care Team (Late st Contact Info) Description 10/31/2023 Orders Only [facility] MEDICINE [address] [place], [place] [phone] Mackenzie Estrada MD [address] [place], [place] [phone] Abnormal ultrasound of pelvis (Primary Dx) Social [...] which I need to talk to her workforce management coordinator about. Thank you! documented in this encounter Plan of Treatment Upcoming Encounters Date Type Department Care Team (Late st Contact Info) Description 09/24/2024 3:15 PM EST Office Visit [facility] [address] [facility] [place] [address] Mackenzie Estrada MD [address] [place] [address] 10/01/2024 10:00 AM EST Office Visit [facility] OPTOMETRY [address] [place] [address] Kailash, Libra, OD 230 [place] [address] 11/06/2024 9:45 AM EDT Office Visit [facility] MEDICINE [address] [place] [address] documented as of this encounter Goals Goal [...] EDT Narrative 12/07/2023 9:11 AM EDT ? [facility] ?[address] ?[place] [address] ? Magnetic Resonance Report ? Signed ? Patient: Ovidio Lacy,Ginette ?MR ?? #: [id number] ? : 1975 ?Acct:[id number] ? Age/Sex: 48 / F ?ADM Date: 04/26/24 ? Loc: HO.MRI ? Attending : Mackenzie Estrada MD ? Ordering Physician: Mackenzie Estrada ?? Date of Service: 11/25/23 ?? Procedure(s): MR pelvis wo/w con ?? Accession Number(s): [id number] ? cc: Mackenzie Estrada ? EXAMINATION: ?? [...] 7.8 x 3.6 ?? x 4.3 cm (mdudkc-qm-xuzouf x AP x transverse dimension). The junctional [...] 12/07/23906 ? DD/ 1505 ? TD/TT: ? Manager Recruiting: PD ? Procedure Note Lorin, Image - 12/07/2023 [place] [address] Magnetic Resonance Report Signed Patient: Ginette Arceo #: [id number] : 1975Acct:[id number] Age/Sex: 48 / FADM Date: 11/25/23 Loc: .MRI Attending Dr: Mackenzie Estrada MD Ordering Physician: Mackenzie Estrada Date of Service: 11/25/23 Procedure(s): MR pelvis wo/w con Accession Number(s): [id number] cc: Mackenzie Estrada EXAMINATION: MR PELVIS WITHOUT [...] measures 7.8 x 3.6 x 4.3 cm (xcaehf-eu-cmcxkb x AP x transverse dimension). The junctional [...] in OV> 12/07/23 0907 DD/ 1505 TD/TT: Manager Recruiting: PD Mackenzie Estrada MD IM MRI PROCEDURES Final Resul t documented in this encounter Visit Diagnoses Diagnosis Abnormal ultrasound of pelvis- Primary documented in this encounter Care Teams Ship Engineer Relationship Specialty Start Date End Date Mackenzie Estrada MD [address] [place] [address] PCP - General Family Medicine 07/10/20 documented as of this encounter
--- OUTSIDE RECORDS SUMMARY | 2024-09-14 11:55 | XMS_ITS | Encounter Summary ---
Author Organization [email or web address] Address [address] [facility] [address] [place] [address] Care Team Providers Care Docent Coordinator Name Role Phone Mackenzie Estrada MD Primary Care Provider [phone] Encounter Details Date Type Department Care Team (Late st Contact Info) Description 09/11/2024 9:45 AM EST Office Visit [facility] [address] [place] [address] Sisi Kennedy FNP [address] [place], [place] [phone] Rheumatoid arthritis involving multiple sites with positive [...] the past 12 months, has t he fos4X, gas, oil or water [employer] threatened to shut off services in your [...] this encounter Progress Notes * Sisi Kennedy, INVESTIGATOR VICE - 09/11/2024 9:45 AM EST Subjective: Ginette [...] Group Topic: Vivi - Recently following with [facility] for nodules on elbows - right olecranon soft tissue mass. Continues with pain related to RA, reports has been worsening recently. Encouraged to schedule follow up with Rheumatology (missed last appt d/t andres). Chronic Pain History: Associated Diagnosis: Rheumatoid Arthritis Following with [facility] - Dr. Castro Per PCP Note: [...] Visit Other Rheumatoid arthritis involving multiple sites ([facility]) - Primary Overview - Following with [facility] Current Assessment & Plan -Good engagement and participation with Group Medical Visit model -Encouraged multifactorial approach to pain control including pharm and non- pharm modalities -UTOX and Pill count as expected Long-term current use of opiate analgesic Overview Medication: Percocet 7.5/325mg TID PRN Indication: Rheumatoid arthritis Last LOADING MANAGER Agreement: 06/12/24 Tier: II (Q3 months visits), Dr. Estrada 08/15/24 Current Assessment & Plan Timeline: - 09/11/24: Group visit, utox/pill count wnl Relevant Orders POCT GALLO-14 Urine Drug Screen (Completed) Follow up: 1-3 months for Group [facility]. Follow up as scheduled with PCP, sooner as needed. * Coral Somers RN - 09/11/2024 9:45 AM EST .LOADING MANAGER math and science division chair: PDMP reviewed today. Last fill date: 08/23/24 [...] ESTAssociated Problem(s): Rheumatoid arthritis involving multiple sites ([facility]) -Good engagement and participation with Group Medical Visit model -Encouraged multifactorial approach to pain control including pharm and non- pharm modalities -UTOX and Pill count as expected documented in this encounter Plan of Treatment Upcoming Encounters Date Type Department Care Team (Late st Contact Info) Description 09/24/2024 3:15 PM EST Office Visit [facility] [address] [place] [address] Mackenzie Estrada MD [address] [place] [address] 10/01/2024 10:00 AM EST Office Visit [facility] [address] [place] [address] Libra Linder, OD [address] [place] [address] 11/06/2024 9:45 AM EDT Office Visit [facility] [address] [place] [address] documented as of this encounter Goals Goal [...] - 09/11/2024 2:01 PM EST .UTOX cup Lot#[id number] Exp. 04/25/26 Internal Pass Control Sisi Kennedy INVESTIGATOR VICE POINT OF CARE TEST ENTER/EDIT ORDERABLES Final Result documented in this encounter Visit Diagnoses Diagnosis Rheumatoid arthritis involving multiple sites with positive rheumatoid factor ([facility])- Primary Long-term current use of opiate analgesic Encounter for long-term (current) use of other medications documented in this encounter Additional Health Concerns Assessment Noted Time PHQ-9 Depression Total Score: 2 04/30/20 24 10:41 AM EDT documented as of this encounter Care Teams Docent Coordinator Relationship Specialty Start Date End Date Mackenzie Estrada MD [address] [place] [address] PCP - General Family Medicine 07/10/20 documented as of this encounter
--- OUTSIDE RECORDS SUMMARY | 2024-09-14 11:55 | XMS_ITS | Encounter Summary ---
Author Organization [employer] Address [address] [facility] [address] [place] [address] Care Team Providers Care Child Care Giver Name Role Phone Mackenzie Estrada MD Primary Care Provider [phone] Reason for Visit * Reason Comments Med Refill Encounter Details Date Type Department Care Team ([facility] Contact Info) Description 08/19/2024 Refill [facility] [address] [place], [place] [phone] Mackenzie Estrada MD [address] [place], [place] [phone] Social History Tobacco Use Types Packs/Day Years [...] 3:15 PM EST Office Visit [facility] [address] [place] [address] Mackenzie Estrada MD [address] [place] [address] 10/01/2024 10:00 AM EST Office Visit [facility] [address] [place] [address] Kailash, Libra, OD [address] [place] [address] 11/06/2024 9:45 AM EDT Office Visit [facility] [address] [place] [address] documented as of this encounter Goals Goal Patient Goal Type Associated Problems Recent Progress Patient-Stated? Author Quit using tobacco (cigarettes, smokeless, etc) Tobacco Use No Corey Lin, PharmD documented as of this encounter Visit Diagnoses Not on filedocumented in this encounter Additional Health Concerns Assessment Noted Time PHQ-9 Depression Total Score: 2 04/30/20 10:41 AM EDT documented as of this encounter Care Teams Child Care Giver Relationship Specialty Start Date End Date Mackenzie Estrada MD [address] [place] [address] PCP - General Family Medicine 07/10/20 documented as of this encounter
--- OUTSIDE RECORDS SUMMARY | 2024-09-14 11:55 | XMS_ITS | Encounter Summary ---
Author Organization [employer] Address 75 [facility] [address] 7t [place] [address] Care Team Providers Care Farmworker Fur Name Role Phone Mackenzie Estrada MD Primary Care Provider [phone] Encounter Details Date Type Department Care Team (Late st Contact Info) Description 04/20/2024 Telephone [facility] [address] [place], [place] [phone] Mackenzie Estrada MD [address] [place], [place] [phone] Social History Tobacco Use Types Packs/Day Years [...] Office Visit [facility] [address] [place] [address] Mackenzie Estrada MD [address] [place] [address] 10/01/2024 10:00 AM EST Office Visit [facility] [address] [place] [address] Kailash, Libra, OD [address] [place] [address] 11/06/2024 9:45 AM EDT Office Visit [facility] [address] [place] [address] documented as of this encounter Goals Goal Patient Goal Type Associated Problems Recent Progress Patient-Stated? Author Quit using tobacco (cigarettes, smokeless, etc) Tobacco Use No Corey Lin, Bailey documented as of this encounter Visit Diagnoses Not on filedocumented in this encounter Care Teams Farmworker Fur Relationship Specialty Start Date End Date Mackenzie Estrada MD [address] [place] [address] PCP - General Family Medicine 07/10/20 documented as of this encounter
--- OUTSIDE RECORDS SUMMARY | 2024-09-14 11:55 | XMS_ITS | Encounter Summary ---
Author Organization [employer] Address [address] [facility] [address] [place] [address] Care Team Providers Care Fire Extinguisher Installer Name Role Phone Mackenzie Estrada MD Primary Care Provider [phone] Encounter Details Date Type Department Care Team [...] Description 09/24/2024 3:15 PM EST Office Visit [facility]INE [address] [place] [address] Mackenzie Estrada MD [address] [place] [address] 10/01/2024 10:00 AM EST Office Visit [facility] OPT[facility] [address] [place] [address] Kailash, Libra, OD [address] [place] [address] 11/06/2024 9:45 AM EDT Office Visit [facility] [address] [place] [address] documented as of this encounter Goals Goal Patient Goal Type Associated Problems Recent Progress Patient-Stated? Author Quit using tobacco (cigarettes, smokeless, etc) Tobacco Use Corey Cornell, Bailey documented as of this encounter Visit Diagnoses Not on filedocumented in this encounter Additional Health Concerns Assessment Noted Time PHQ-9 Depression Total Score: 2 04/30/20 24 10:41 AM EDT documented as of this encounter Care Teams Fire Extinguisher Installer Relationship Specialty Start Date End Date Mackenzie Estrada MD [address] [place] [address] PCP - General Family Medicine 07/10/20 documented as of this encounter
--- OUTSIDE RECORDS SUMMARY | 2024-09-14 11:55 | XMS_ITS | Encounter Summary ---
Author Organization [employer] Address 75 [facility] 7t [place] [address] Care Team Providers Care Machine Hoop Maker Name Role Phone Mackenzie Estrada MD Primary Care Provider [phone] Reason for Visit * Reason Comments Med Refill Encounter Details Date Type Department Care Team ([facility] st Contact Info) Description 02/08/2023 Refill [facility] [address] [place], [place] [phone] Mackenzie Estrada MD [address] [place] [address] Pain in both hands Social History Tobacco [...] Description 09/24/2024 3:15 PM EST Office Visit [facility] [address] [place] [address] Mackenzie Estrada MD [address] [place] [address] 10/01/2024 10:00 AM EST Office Visit [facility] OPT[facility] [address] [place] [address] Kailash, Libra, OD [address] [place] [address] 11/06/2024 9:45 AM EDT Office Visit [facility] [address] [place] [address] documented as of this encounter Visit Diagnoses Diagnosis Pain in both hands documented in this encounter Care Teams Machine Hoop Maker Relationship Specialty Start Date End Date Mackenzie Estrada MD [address] [place] [address] PCP - General Family Medicine 07/10/20 documented as of this encounter
--- OUTSIDE RECORDS SUMMARY | 2024-09-14 11:55 | XMS_ITS | Encounter Summary ---
Author Organization [employer] [facility] Address 75 [facility] 7t [place] [address] Care Team Providers Care Bearing Press Machine Operator Name Role Phone Mackenzie Estrada MD Primary Care Provider [phone] Reason for Visit * Reason Comments Med Refill Encounter Details Date Type Department Care Team ([facility] Contact Info) Description 12/10/[address] [facility] [address] [place] [address] [phone] Mackenzie Estrada MD [address] [place], [place] [phone] Pain in both hands Social History Tobacco [...] Encounters Date Type Department Care Team ([facility] Contact Info) Description 09/24/2024 3:15 PM EST Office Visit [facility] [address] [place] [phone] Mackenzie Estrada MD [address] [place], [place] [phone] 10/01/2024 10:00 AM EST Office Visit [facility] [address] [place] [address] Libra Linder, OD [address] [place] [address] 11/06/2024 9:45 AM EDT Office Visit [facility] [address] [place] [address] documented as of this encounter Visit Diagnoses Diagnosis Pain in both hands documented in this encounter Care Teams Bearing Press Machine Operator Relationship Specialty Start Date End Date Mackenzie Estrada MD [address] [place], [place] [phone] PCP - General Family Medicine 07/10/20 documented as of this encounter
--- OUTSIDE RECORDS SUMMARY | 2024-09-14 11:55 | XMS_ITS | Encounter Summary ---
Author Organization [employer] Address [address] [facility] [address] 7t [place] [address] Care Team Providers Care Implementation Engineer Name Role Phone Mackenzie Estrada MD Primary Care Provider [phone] Reason for Visit * Reason Comments Med Refill Encounter Details Date Type Department Care Team ([facility] st Contact Info) Description 11/18/2023 Refill [facility] [address] [place], [place] [phone] Mackenzie Estrada MD [address] [place], [place] [phone] Pain in both hands Social History Tobacco [...] PM EST Office Visit [facility] [address] [place] [address] Mackenzie Estrada MD [address] [place] [address] 10/01/2024 10:00 AM EST Office Visit [facility] OPT[facility] [address] [place] [address] Kailash, Libra, OD [address] [place] [address] 11/06/2024 9:45 AM EDT Office Visit [facility] [address] [place] [address] documented as of this encounter Goals Goal Patient Goal Type Associated Problems Recent Progress Patient-Stated? Author Quit using tobacco (cigarettes, smokeless, etc) Tobacco Use No Corey Lin, KelechiD documented as of this encounter Visit Diagnoses Diagnosis Pain in both hands documented in this encounter Care Teams Implementation Engineer Relationship Specialty Start Date End Date Mackenzie Estrada MD [address] [place] [address] [phone] PCP - General Family Medicine 07/10/20 documented as of this encounter
--- OUTSIDE RECORDS SUMMARY | 2024-09-14 11:55 | XMS_ITS | Encounter Summary ---
Author Organization [employer] Address [address] [facility] [address] 7t [place] [address] Care Team Providers Care Environmental Field Technician Name Role Phone Mackenzie Estrada MD Primary Care Provider Reason for Visit * Reason Onset Date Comments Durable Medical Equipment 08/15/2024 10 In 1 pillow Encounter Details Date Type Department Care Team ([facility] st Contact Info) Description 08/15/2024 Telephone [facility] [address] [place], [place] [phone] Mackenzie Estrada MD [address] [place] [address] Durable Medical Equipment (10 In 1 pillow [...] the past 12 months, has t he [employer], gas, oil or water [employer] threatened to shut off services in your [...] Office Visit [facility] [address] [place] [address] Mackenzie Estrada MD [address] [place] [address] 10/01/2024 10:00 AM EST Office Visit [facility] [address] [place] [address] Libra Linder OD [address] [place] [address] 11/06/2024 9:45 AM EDT Office Visit [facility] [address] [place] [address] documented as of this encounter Goals Goal Patient Goal Type Associated Problems Recent Progress Patient-Stated? Author Quit using tobacco (cigarettes, smokeless, etc) Tobacco Use Corey Cornell, KelechiD documented as of this encounter Visit Diagnoses Not on filedocumented in this encounter Additional Health Concerns Assessment Noted Time PHQ-9 Depression Total Score: 2 04/30/20 24 10:41 AM EDT documented as of this encounter Care Teams Environmental Field Technician Relationship Specialty Start Date End Date Mackenzie Estrada MD [address] [place] [address] PCP - General Family Medicine 07/10/20 documented as of this encounter
--- OUTSIDE RECORDS SUMMARY | 2024-09-14 11:55 | XMS_ITS | Encounter Summary ---
Author Organization [employer] Address [address] [facility] [address] 7[address] [place] [address] Care Team Providers Care Director For Beauty School Name Role Phone Mackenzie Estrada MD Primary Care Provider [phone] Encounter Details Date Type Department Care Team (Late st Contact Info) Description 06/03/2023 Orders Only [facility] [address] [place], [place] [phone] Mackenzie Estrada MD [address] [place], [place] [phone] Pain in both hands Social History Tobacco [...] Description 09/24/2024 3:15 PM EST Office Visit [facility] [address] [place] [address] Mackenzie Estrada MD [address] [place] [address] 10/01/2024 10:00 AM EST Office Visit [facility] [address] [place] [address] Libra Linder, OD [address] [place] [address] 11/06/2024 9:45 AM EDT Office Visit [facility] [address] [place] [address] documented as of this encounter Goals Goal [...] EST Narrative 06/03/2023 5:47 PM EDT ? [facility] ?[address] ?[place] [address] ?XRay Report ? Signed ? Patient: Ovidio Hamma,Ginette ?MR ?? #: [id number] ? : 1975 ?Acct:[id number] ? Age/Sex: 47 / F ?ADM Date: 06/25/23 ? Loc: HO.ED ? Attending Dr: ? Ordering Physician: Treasure Clemons ?? Date of Service: 06/25/23 ?? Procedure(s): XR chest 2V ?? Accession Number(s): [id number] ? cc: Mackenzie Estrada; Treasure Clemons ? [...] 1230 ? DD/ 1215 ? TD/TT: ? Manager Field: MSM ? Procedure Note Lorin, Image - 06/25/2023 [facility] [address] [facility] [place] [address] XRay Report Signed Patient: Ginette ArceoMR #: [id number] : 1975Acct:[id number] Age/Sex: 47 / FADM Date: 06/25/23 Loc: HO.ED Attending Dr: Ordering Physician: Treasure Clemons Date of Service: 06/25/23 Procedure(s): XR chest 2V Accession Number(s): [id number] cc: Mackenzie Estrada; Treasure Clemons EXAMINATION: XR [...] in OV> 06/25/23 1230 DD/ 1215 TD/TT: Manager Field: [facility] External Provider IMG XR PROCEDURES Edited Result - Final * (ABNORMAL) Urinalysis, Complete, with Reflex to Culture (06/03/2023 4:49 PM EDT) Color Urine Yellow [facility] Appearance Urine Clear [facility] PH 5.5 5.0 - 9.0 [facility] Glucose Urine UA Negative Negative mg/dL [facility] Urine Blood Large (3+)(A) Negative [facility] Specific Twisp - Urine 1.025 1.005 - 1.025 [facility] Urine Protein Negative Neg-Trace mg/dL [facility] Urine Ketones Negative Negative mg/dL [facility] Nitrite Urine Negative Negative [facility] Leukocyte Esterase Urine Negative Negative [facility] RBC Urine >20(A) 0 - 2 /HPF [facility] Urine WBC 0-5 0 - 5 /HPF [facility] Urine Squamous Epithelial Cell 11-20 0 - 2 /HPF [facility] Urine Bacteria 1+ None Seen [facility] Hyaline Casts, Urine 0-2 0 - 2 /LPF [facility] 06/03/2023 4:49 PM EDT 06/03/2023 4:52 PM EDT [facility] - 06/03/2023 5:00 PM EDT Urine, Clean Catch us Generic External Data Provider LAB URINE ORDERAB LES Final Result Performing Organization Address [facility]/ZIP Co de Phone Number [facility] [address] [place] [phone] [phone] * (ABNORMAL) Urinalysis w/reflex microscopic (06/03/2023 4:49 PM EDT) Color Urine Yellow [facility] Appearance Urine Clear [facility] PH 5.5 5.0 - 9.0 [facility] Glucose Urine UA Negative Negative mg/dL [facility] Urine Blood Large (3+)(A) Negative [facility] Specific Twisp - Urine 1.025 1.005 - 1.025 [facility] Urine Protein Negative Neg-Trace mg/dL [facility] Urine Ketones Negative Negative mg/dL [facility] Nitrite Urine Negative Negative [facility] Leukocyte Esterase Urine Negative Negative [facility] 06/03/2023 4:49 PM EDT 06/03/2023 4:52 PM EDT [facility] - 06/03/2023 4:57 PM EDT Urine, Clean Catch us Generic External Data Provider LAB URINE ORDERAB LES Final Result Performing Organization Address City/[facility]/ZIP Co de Phone Number [facility] [address] [place] [address] [phone] * Influenza A B2 ID NOW (Corona) (06/03/2023 4:34 PM EDT) IDNOW SERIAL# [id number] [facility] Influenza A Negative Negative [facility] Influenza B2 Negative Negative [facility] Influenza A B2 Note See Note [facility] Comment:The Corona ID NOW In [...] LAB MICROBIOLOGY - GENERAL ORDERABLES Final Result [facility] [address] [place] [phone] * COVID-19 ID NOW (CORONA) (06/03/2023 4:34 PM EDT) IDNOW SERIAL# [id number] [facility] COVID-19 TEST Negative Negative [facility] COVID-19 NOTE See Note [facility] Comment: Results are for the identification of SARS-CoV2 RNA. TheSARS-CoV2 RNA is generally detectable in respiratory samplesduring the acute phase of infection. Positive results areindicative of the presence of SARS-CoV-2 RNA; clinicalcorrelation with patient history and other diagnosticinformation is necessary to determine patient infectionstatus. Positive results do not rule out bacterial infectionor co- infection with other viruses.Testing facilities within the [facility] and itsterritories are required to report all [...] use by authorized laboratories.Testing performed on the [employer] ID NOW utilizing NAAT. 06/03/2023 4:34 PM EDT 06/03/2023 4:40 PM EDT us Generic External Data Provider LAB MOLECULAR ARNAV GNOSTICS ORDERABLES Final Result [facility] [address] [place] [phone] documented in this encounter Visit Diagnoses Diagnosis Pain in both hands documented in this encounter Care Teams Director For Beauty School Relationship Specialty Start Date End Date Mackenzie Estrada MD [address] [place] [phone] PCP - General Family Medicine 07/10/20 documented as of this encounter
--- OUTSIDE RECORDS SUMMARY | 2024-09-14 11:55 | XMS_ITS | Encounter Summary ---
Author Organization [employer] Address [address] [facility] [address] 7t [place] [address] Care Team Providers Care Television Journalist Name Role Phone Mackenzie Estrada MD Primary Care Provider [phone] Reason for Visit * Reason Comments Med Refill Encounter Details Date Type Department Care Team ([facility] Contact Info) Description 06/01/2023 Refill [facility] MED[facility]INE [address] [place], [place] [phone] Mackenzie Estrada MD [address] [place], [place] [phone] Pain in both hands Social History Tobacco [...] 3:15 PM EST Office Visit [facility] MEDICINE [address] [place] [address] Mackenzie Estrada MD [address] [place] [address] 10/01/2024 10:00 AM EST Office Visit [facility] OPTOMETRY [address] [place] [address] Kailash, Libra, OD [address] [place] [address] 11/06/2024 9:45 AM EDT Office Visit [facility] MEDICINE [address] [place] [address] documented as of this encounter Goals Goal Patient Goal Type Associated Problems Recent Progress Patient-Stated? Author Quit using tobacco (cigarettes, smokeless, etc) Tobacco Use No Corey Lin, KelechiD documented as of this encounter Visit Diagnoses Diagnosis Pain in both hands documented in this encounter Care Teams Television Journalist Relationship Specialty Start Date End Date Mackenzie Estrada MD [address] [place] [address] [phone] PCP - General Family Medicine 07/10/20 documented as of this encounter
--- OUTSIDE RECORDS SUMMARY | 2024-09-14 11:55 | XMS_ITS | Encounter Summary ---
Author Organization [employer] Address [address] [facility] [facility] [place] [address] Care Team Providers Care Associate Faculty Name Role Phone Mackenzie Estrada MD Primary Care Provider [phone] Reason for Visit * Reason Comments Pre-visit Planning SDOH screening negat radha and tobacco screening negative Encounter Details Date Type Department Care Team ([facility] Contact Info) Description 09/10/2024 Patient Outreach [facility] MEDICINE [address] [place], [place] [phone] Mackenzie Estrada MD [address] [place], [place] [phone] Pre-visit Planning (SDOH screening negative and tobacco [...] appointment a photo id and insurance card, SDIN positive. Patient looking for assistance with transportation Referral will be placed. documented in this encounter Plan of Treatment Upcoming Encounters Date Type Department Care Team (Late st Contact Info) Description 09/24/2024 3:15 PM EST Office Visit [facility] [address] [place] [address] Mackenzie Estrada MD [address] [place], [place] [phone] 10/01/2024 10:00 AM EST Office Visit [facility] OPTOMETRY [address] [place] [address] Libra Linder, OD [address] [place] [address] 11/06/2024 9:45 AM EDT Office Visit [facility] [address] [place] [address] documented as of this encounter Goals Goal [...] documented as of this encounter Care Teams Associate Faculty Relationship Specialty Start Date End Date Mackenzie Estrada MD [address] [place] [address] PCP - General Family Medicine 07/10/20 documented as of this encounter
--- OUTSIDE RECORDS SUMMARY | 2024-09-14 11:55 | XMS_ITS | Encounter Summary ---
Author Organization [employer] Address [address] [facility] 7t [place] [address] Care Team Providers Care Intake Specialist Name Role Phone Mackenzie Estrada MD Primary Care Provider [phone] Reason for Visit * Reason Comments Care Coordination CH[facility] outreach for SDO H PT-1 and food needs-referral completed Encounter Details Date Type Department Care Team (Latest Contact Info) Description 09/10/2024 Patient Outreach [facility] MED[facility]INE [address] [place] [address] Mackenzie Estrada MD [address] [place] [address] Care Coordination ([facility] outreach for SDOH PT-1 [...] is your housing situation today? I have mendzoa prince 05/15/[address] you [...] Wednesdays, and Walk-In Urgent Care Located in [facility]. Patient provided with after-hours line for [facility], , which offer night time triage service and option to transfer to overnight houseperson provider if needed. documented in this encounter Plan of Treatment Upcoming Encounters Date Type Department Care Team (Late st Contact Info) Description 09/24/2024 3:15 PM EST Office Visit [facility] MEDICINE [address] [place] [address] Mackenzie Estrada MD [address] [place] [address] 10/01/2024 10:00 AM EST Office Visit [facility] OPTOMETRY [address] [place] [address] Kailash, Libra, OD 230 [place] [address] 11/06/2024 9:45 AM EDT Office Visit [facility] MEDICINE [address] [place] [address] documented as of this encounter Goals Goal Patient Goal Type Associated Problems Recent Progress Patient-Stated? Author Quit using tobacco (cigarettes, smokeless, etc) Tobacco Use Corey Cornell, PharmD documented as of this encounter Visit Diagnoses Not on filedocumented in this encounter Additional Health Concerns Assessment Noted Time PHQ-9 Depression Total Score: 2 04/30/20 24 10:41 AM EDT documented as of this encounter Care Teams Intake Specialist Relationship Specialty Start Date End Date Mackenzie Estrada MD [address] [place] [phone] PCP - General Family Medicine 07/10/20 documented as of this encounter
--- OUTSIDE RECORDS SUMMARY | 2024-09-14 11:55 | XMS_ITS | Encounter Summary ---
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 [...] the past 12 months, has t he [employer], gas, oil or water [employer] threatened to shut off services in your [...] 7.5-325 MG tablet To be sent to: [facility] - [place], [place] - [address] [place] [address] documented in this encounter Plan of Treatment Upcoming Encounters Date Type Department Care Team (Late st Contact Info) Description 09/24/2024 3:15 PM EST Office Visit [facility] MEDICINE [address] [place] [address] Mackenzie Estrada MD [address] [place] [address] 10/01/2024 10:00 AM EST Office Visit [facility] OPTOMETRY [address] [place] [address] Libra Linder, OD [address] [place] [address] 11/06/2024 9:45 AM EDT Office Visit [facility] MEDICINE [address] [place] [address] documented as of this encounter Goals Goal [...] documented as of this encounter Care Teams Timber Management Professor Relationship Specialty Start Date End Date Mackenzie Estrada MD [address] [place] [address] PCP - General Family Medicine 07/10/20 documented as of this encounter
--- OUTSIDE RECORDS SUMMARY | 2024-09-14 11:55 | XMS_ITS | Encounter Summary ---
Author Organization [employer] Address [address] [facility] [address] 7[address] [place] [address] Care Team Providers Care Clerical Stock Inspector Name Role Phone Mackenzie Estrada MD Primary Care Provider [phone] Encounter Details Date Type Department Care Team (Late st Contact Info) Description 10/03/2023 Orders Only [facility] MEDICINE [address] [place], [place] [phone] Mackenzie Estrada MD [address] [place], [place] [phone] Bacterial vaginosis (Primary Dx) Social History Tobacco [...] Description 09/24/2024 3:15 PM EST Office Visit [facility] MEDICINE [address] [place] [address] Mackenzie Estrada MD [address] [place] [address] 10/01/2024 10:00 AM EST Office Visit [facility] OPTOMETRY [address] [place] [address] Kailash, Libra, OD 230 [place] [address] 11/06/2024 9:45 AM EDT Office Visit [facility] MEDICINE [address] [place] [phone] documented as of this encounter Goals Goal Patient Goal Type Associated Problems Recent Progress Patient-Stated? Author Quit using tobacco (cigarettes, smokeless, etc) Tobacco Use No Corey Lin, Bailey documented as of this encounter Visit Diagnoses Diagnosis Bacterial vaginosis- Primary Unspecified vaginitis and vulvovaginitis documented in this encounter Care Teams Clerical Stock Inspector Relationship Specialty Start Date End Date Mackenzie Estrada MD [address] [place] [phone] PCP - General Family Medicine 07/10/20 documented as of this encounter
--- OUTSIDE RECORDS SUMMARY | 2024-09-14 11:55 | XMS_ITS | Encounter Summary ---
Author Organization [employer] Address [address] [facility] [address] [place] [address] Care Team Providers Care Transmitter Engineer In Charge Name Role Phone Mackenzie Estrada MD Primary Care Provider Reason for Visit * Reason Comments Med Refill Encounter Details Date Type Department Care Team ([facility] Contact Info) Description 06/03/2023 Refill [facility] [address] [place], [place] [phone] Mackenzie Estrada MD [address] [place], [place] [phone] Pain in both hands Social History Tobacco [...] PM EST Office Visit [facility] [address] [place] [phone] Mackenzie Estrada MD [address] [place] [address] 10/01/2024 10:00 AM EST Office Visit [facility] OPTOMETRY [address] [place] [address] Kailash, Libra, OD [address] [place] [address] 11/06/2024 9:45 AM EDT Office Visit [facility] [address] [place] [address] documented as of this encounter Goals Goal Patient Goal Type Associated Problems Recent Progress Patient-Stated? Author Quit using tobacco (cigarettes, smokeless, etc) Tobacco Use No Corey Lin, KelechiD documented as of this encounter Visit Diagnoses Diagnosis Pain in both hands documented in this encounter Care Teams Transmitter Engineer In Charge Relationship Specialty Start Date End Date Mackenzie Estrada MD [address] [place] [address] [phone] PCP - General Family Medicine 07/10/20 documented as of this encounter
--- OUTSIDE RECORDS SUMMARY | 2024-09-14 11:55 | XMS_ITS | Encounter Summary ---
Author Organization [employer] Address [address] [facility] [address] [place] [address] Care Team Providers Care Optical Instrument Inspector Name Role Phone Mackenzie Estrada MD Primary Care Provider [phone] Reason for Visit * Reason Comments Med Refill Encounter Details Date Type Department Care Team ([facility] Contact Info) Description 06/02/2023 Refill [facility] MEDICINE [address] [place], [place] [phone] Mackenzie Estrada MD [address] [place], [place] [phone] Pain in both hands Social History Tobacco [...] Description 09/24/2024 3:15 PM EST Office Visit [facility] MEDICINE [address] [place] [address] Mackenzie Estrada MD [address] [place] [address] 10/01/2024 10:00 AM EST Office Visit [facility] OPTOMETRY [address] [place] [address] Kailash, Libra, OD [address] [place] [address] 11/06/2024 9:45 AM EDT Office Visit [facility] MEDICINE [address] [place] [phone] documented as of this encounter Goals Goal Patient Goal Type Associated Problems Recent Progress Patient-Stated? Author Quit using tobacco (cigarettes, smokeless, etc) Tobacco Use No Corey Lin, KelechiD documented as of this encounter Visit Diagnoses Diagnosis Pain in both hands documented in this encounter Care Teams Optical Instrument Inspector Relationship Specialty Start Date End Date Mackenzie Estrada MD [address] [place] [address] [phone] PCP - General Family Medicine 07/10/20 documented as of this encounter
--- OUTSIDE RECORDS SUMMARY | 2024-09-14 11:55 | XMS_ITS | Encounter Summary ---
Author Organization [employer] Address [address] [address] [place] [address] Care Team Providers Care Reel Fed Printer Name Role Phone Mackenzie Estrada MD Primary Care Provider Encounter Details Date Type Department Care Team (Late st Contact Info) Description 12/13/[address] [facility] MED[facility] [address] [place], [place] [phone] Mackenzie Estrada MD [address] [place], [place] [phone] Pain in both hands Social History Tobacco [...] Description 09/24/2024 3:15 PM EST Office Visit [facility] MED[facility]INE [address] [place] [address] Macknezie Estrada MD [address] [place] [address] 10/01/2024 10:00 AM EST Office Visit [facility] OPTOMETRY [address] [place] [address] Libra Linder, OD [address] [place] [address] 11/06/2024 9:45 AM EDT Office Visit [facility] MEDICINE [address] [place] [phone] documented as of this encounter Goals Goal Patient Goal Type Associated Problems Recent Progress Patient-Stated? Author Quit using tobacco (cigarettes, smokeless, etc) Tobacco Use No Corey Lin, PharmD documented as of this encounter Visit Diagnoses Diagnosis Pain in both hands documented in this encounter Care Teams Reel Fed Printer Relationship Specialty Start Date End Date Mackenzie Estrada MD [address] [place] [address] [phone] PCP - General Family Medicine 07/10/20 documented as of this encounter
--- OUTSIDE RECORDS SUMMARY | 2024-09-14 11:55 | XMS_ITS | Clinical Summary ---
Author Organization [email or web address] Address [address] [facility] 7[address] [place] [address] Care Team Providers Care Peoplesoft Consultant Name Role Phone Mackenzie Estrada MD Primary Care Provider [phone] Allergies Active Allergy Reactions Criticality Noted Date Comments [place] (Diagnostic) 05/23/2020 [place] Oil Anaphylaxis High 07/19/2022 Morphine 06/02/2015 Other [...] 03/10/20 22 Active Sharps Container (GUARDIAN Sharps Acid Leveler) misc 06/15/20 22 Active Ascorbic Acid (vitamin C) 500 MG tablet TAKE 2 TABLETS BY MOUTH ONCE DAILY IN THE MORNING 12/22/19 23 Active Vitamin D High Potency 25 MCG (1000 UT) capsule Take 25 mcg by mouth in the morning. 12/11/19 23 Active beta carotene (vitamin A) 3 MG (10272 UT) capsule Take by mouth in the [...] MOUTH EVERY WEEK 02/24/20 24 Active Umeclidinium Brohman (Incruse Ellipta) 62.5 MCG/ACT aerosol powderIndicatio ns:Subacute [...] 7.5/325mg TID PRN Indication: Rheumatoid arthritis Last AUTOTRANSFUSIONIST Agreement: 06/12/24 Tier: II (Q3 months visits), [...] factor 01/26/2024 Overview (08/14/2024): - Following with [facility] Rheum: Dr. 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 0 Personal history of Hodgkin lymphoma 05/09/2020 Axillary lymphadenopathy 05/09/2020 Acute deep vein thrombosis ( DVT) of brachial vein of right upper extremity 03/07/2020 Lymphadenopathy, generalized 03/07/2020 Migraine without status migrainosus, not intract able 12/06/2017 Paresthesia and pain of left extremity 8 Gastroesophageal reflux disease 06/03/2017 Rheumatoid arthritis involving multiple sites Overview (09/11/2024): - Following with [facility] Rheumatoloy Assessment & Plan (09/11/2024 5:02 PM [...] PM EDT): Primarily managed by Rheum at [facility] Continue to take Oulimiant 2mg, Methotrexate 20mg [...] EST Office Visit [facility] [address] [place] [phone] Sisi Kennedy FNP Rheumatoid arthritis involving multiple sites with positive rheumatoid factor ([facility]) (Primary Dx); Long-term current use of opiate analgesic 09/11/2024 Travel 09/10/2024 Patient Outreach [facility] [address] [place] [phone] Mackenzie Estrada MD Care Coordination (CHW outreach for SDOH PT-1 and food needs-referral completed /) 09/10/2024 Patient Outreach [facility] [address] [place] [address] Mackenzie Estrada MD Pre-visit Planning (SDOH screening negative and tobacco screening negative) 09/07/2024 Refill [facility] [address] [place] [address] Mackenzie Estrada MD 08/22/2024 Refill [facility] [address] [place] [address] Mackenzie Estrada MD 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 ([facility]) 08/19/2024 Refill [facility] [address] [place] [address] Mackenzie Estrada MD 08/16/2024 Telephone [facility] [address] [place] [address] Hanny Lacy MA Appointment Request 08/15/2024 Telephone [facility] [address] [place] [address] Mackenzie Estrada MD Durable Medical Equipment (10 In 1 pillow ) 08/14/2024 9:45 AM EST Office Visit [facility] [address] [place] [address] Sisi Kennedy FNP Long-term current use of opiate analgesic (Primary Dx); 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 ([facility]/HCC); Inflammatory arthritis 08/14/2024 Travel 07/27/2024 Orders Only GENERIC EXTERNAL DATA DEPARTMENT Provider, Generic External Data 07/26/[address] [address] Mackenzie Estrada MD 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 ([facility]/HCC) 07/20/2024 10:15 AM EST Office Visit [address] [address] Mark Yang MD Ear pain, bilateral (Primary Dx) 07/20/[address] [address] Mackenzie Estrada MD 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 ([facility]/HCC) 07/20/2024 Travel 07/20/[address] [address] Mackenzie Estrada MD 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 ([facility]/HCC) 07/20/[address] [address] Mackenzie Estrada MD Nurse Triage 07/12/2024 10:40 AM EST Office Visit [facility] [address] [place] [address] Kat Yo MD Rheumatoid arthritis flare ([facility]/HCC) (Primary Dx); Right hip pain; Pain and swelling of left wrist; 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 (CMS/HCC); Inflammatory arthritis 07/12/2024 Telephone [facility] [address] [place] [address] Mackenzie Estrada MD Nurse Triage 07/12/2024 Orders Only [facility] External Provider, [facility] 07/09/2024 Patient Outreach [facility] [address] [place] [address] Mackenzie Estrada MD Transition Of Care (Tcm); Error (VOID this visit) 07/09/2024 Telephone [facility] [address] [place] [address] Mackenzie Estrada MD Error (VOID this visit) 07/09/2024 Patient Outreach [address] [address] Mackenzie Estrada MD Transition Of Care (Tcm) 07/08/2024 Orders Only GENERIC EXTERNAL DATA DEPARTMENT Provider, Generic External Data 07/03/2024 10:45 AM EST Office Visit [address] [address] Ebony Daigle MD NSTEMI (non-ST elevated myocardial infarction) ([facility]) (Primary Dx); Epicondylitis elbow, medial, left; Tobacco dependence; Depressive disorder; 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 ([facility]/HCC); Rheumatoid arthritis involving multiple sites with positive rheumatoid factor (CMS/HCC) 07/03/[address] [address] Mackenzie Estrada MD telephone call 07/03/2024 Travel 06/27/[address] [address] Liz Sommers, senior materials planner 06/22/[address] [address] Mackenzie Estrada MD 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 ([facility]/HCC) 06/15/[address] [address] Yaya Bee, PharmD Appointment Request 06/15/[address] [address] Mackenzie Estrada MD Nurse Triage 06/14/2024 Patient Outreach [facility] [address] [place] [address] Mackenzie Estrada MD Transition Of Care (Tcm) [...] is your housing situation today? I have emndoza prince 05/15/[address] you [...] Office Visit [facility] [address] [place] [address] Mackenzie Estrada MD [address] [place] [address] 10/01/2024 10:00 AM EST Office Visit [facility] [address] [place] [address] Kailash, Libra, OD [address] [place] [address] 11/06/2024 9:45 AM EDT Office Visit [facility] [address] [place] [address] Health Maintenance Due Date Last Done Comments [...] - 09/11/2024 2:01 PM EST .UTOX cup Lot#[id number] Exp. 04/25/26 Internal Pass Control us Sisi Kennedy PANMAN POINT OF CARE TEST ENTER/EDIT ORDERABLES Final Result * XR Clavicle Left (07/27/2024 7:24 AM EST) Anatomical Region Laterality Modality Body, Clavicle Left Radiographic Rin ging 07/27/2024 7:24 AM EST Narrative 07/27/2024 9:09 AM EST ? [facility] ?[address] ?[place] [address] ?XRay Report ? Signed ? Patient: Ovidio Lacy,Ginette ?MR ?? #: [id number] ? : 1975 ?Acct:[id number] ? Age/Sex: 49 / F ?ADM Date: 07/27/24 ? Loc: HO.ED ? Attending Dr: ? Ordering Physician: Jana Mcdaniel ?? Date of Service: 07/27/24 ?? Procedure(s): XR clavicle LT ?? Accession Number(s): [id number] ? cc: Mackenzie Estrada; Jana Mcdaniel ? [...] DD/ 0724 ? TD/TT: 07/27/24 0734 ? Electrician Third: ? Procedure Note Lorin, Image - 07/27/[address] [address] XRay Report Signed Patient: Ginette ArceoMR #: [id number] : 1975Acct:[id number] Age/Sex: 49 / FADM Date: 07/27/24 Loc: HO.ED Attending Dr: Ordering Physician: Jana Mcdaniel Date of Service: 07/27/24 Procedure(s): XR clavicle LT Accession Number(s): [id number] cc: Mackenzie Estrada; Jana Mcdaniel EXAMINATION: XR [...] 07/27/24 0905 DD/ 3 TD/TT: 07/27/24 0734 Electrician Third: [facility] External Provider IMG XR PROCEDURES Final Result * XR Shoulder 2+ Views Left (07/27/2024 7:20 AM EST) Anatomical Region Laterality Modality Upper Extremities, Shoulder Left Radi ographic Imaging 07/27/2024 7:20 AM EST Narrative 07/27/2024 9:11 AM EST ? [facility] ?[address] ?[place] [address] ?XRay Report ? Signed ? Patient: Ovidio Lacy,Ginette ?MR ?? #: [id number] ? : 1975 ?Acct:[id number] ? Age/Sex: 49 / F ?ADM Date: 12/27/24 ? Loc: HO.ED ? Attending Dr: ? Ordering Physician: Jana Mcdaniel ?? Date of Service: 07/27/24 ?? Procedure(s): XR shoulder LT min 2V ?? Accession Number(s): [id number] ? cc: Maceknzie Estrada; Jana Mcdaniel ? EXAMINATION: ?? XR [...] DD/ 0720 ? TD/TT: 07/27/24 0734 ? Electrician Third: ? Procedure Note Lorin, Image - 07/27/[address] [address] XRay Report Signed Patient: Ginette Arceo #: [id number] : 1975Acct:[id number] Age/Sex: 49 / FADM Date: 07/27/24 Loc: HO.ED Attending Dr: Ordering Physician: Jana Mcdaniel Date of Service: 12/27/24 Procedure(s): XR shoulder LT min 2V Accession Number(s): [id number] cc: Mackenzie Estrada; Jana Mcdaniel EXAMINATION: XR [...] 07/27/24 0909 DD/ 0720 TD/TT: 07/27/24 0734 Electrician Third: [facility] External Provider IMG XR PROCEDURES Final Result * XR Chest 2 Views (07/27/2024 7:20 AM EST) Anatomical Region Laterality Modality Chest Radiographic Rin ging 07/27/2024 7:20 AM EST Narrative 07/27/2024 9:10 AM EST ? [facility] ?[address] ?[place] [address] ?XRay Report ? Signed ? Patient: Ovidio Lacy,Ginette ?MR ?? #: [id number] ? : 1975 ?Acct:[id number] ? Age/Sex: 49 / F ?ADM Date: 12/27/24 ? Loc: HO.ED ? Attending Dr: ? Ordering Physician: Jana Mcdaniel ?? Date of Service: 07/27/24 ?? Procedure(s): XR chest 2V ?? Accession Number(s): [id number] ? cc: Mackenzie Estrada; Jana Mcdaniel ? [...] DD/ 0720 ? TD/TT: 07/27/24 0734 ? Electrician Third: ? Procedure Note Donshantelter, Image - 07/27/2024 [place] [address] XRay Report Signed Patient: Ginette ArceoMR #: [id number] : 1975Acct:[id number] Age/Sex: 49 / FADM Date: 07/27/24 Loc: HO.ED Attending Dr: Ordering Physician: Jana Mcdaniel Date of Service: 07/27/24 Procedure(s): XR chest 2V Accession Number(s): [id number] cc: Mackenzie Estrada; Jana Mcdaniel EXAMINATION: XR [...] OV> 07/27/24 0906 DD/ 9 TD/TT: 07/27/2434 Electrician Third: [facility] External Provider IMG XR PROCEDURES Final Result * High Sensitivity Troponin I (07/27/2024 1:09 AM EST) Only the most recent of2 resultswithin the time period is included. [facility] TROPONIN I HIGH SENSITIVITY <2.7 <3.5 - 17.0 ng/L [facility] Comment:The Shea high sens itivity Troponin-I results should beused in conjunction with other diagnostic information suchas ECG, clinical observations and information, and patientsymptoms to aid in the diagnosis of CT. 07/27/2024 1:09 AM EST 07/27/2024 1:19 AM EST Generic External Data Provider LAB BLOOD ORDERAB LES Final Result [facility] [address] [place] [phone] * (ABNORMAL) CBC auto differential (07/27/2024 1:09 AM EST) [facility] White Blood Count 4.9 4.8 - 10.8 X10*3/uL [facility] Red Blood Count 3.62(L) 4.20 - 5.50 X10*6/uL [facility] Hemoglobin 10.2(L) 12.0 - 16.0 g/dl [facility] Hematocrit 31.7(L) 37.0 - 47.0 % [facility] Mean Corpuscular Volume 87.6 80.0 - 98.0 fL [facility] Mean Corpuscular Hemoglobin 28.2 27.0 - 33.0 pg [facility] Mean Corpuscular HGB Conc 32.2 31.0 - 35.0 g/dl [facility] Red Cell Distribution Width 14.0 11.0 - 16.0 % [facility] Platelet Count 300 160 - 400 X10*3/uL [facility] Mean Platelet Volume 10.1 9.4 - 12.3 fL [facility] Neutrophils Percent Auto 61.2 45 - 73 % [facility] Imm Gran Pct Auto 0.2 0.0 - 0.4 % [facility] Lymphocytes Percent Auto 29.7 20 - 40 % [facility] Monocytes Percent Auto 7.1 2 - 11 % [facility] Eosinophils Percent Auto 1.6 0 - 4 % [facility] Basophils Percent Auto 0.2 0 - 2 % [facility] NRBC Pct Auto 0.0 0.0 - 0.2 /100WBC [facility] Neutrophils Absolute Auto 3.0 2.0 - 8.3 x10*3/uL [facility] Imm Gran Abs Auto 0.01 0.00 - 0.03 X10*3/uL [facility] Lymphocytes Absolute Auto 1.5 1.2 - 4.9 X10*3/uL [facility] Monocytes Absolute Auto 0.4 0.1 - 1.2 X10*3/uL [facility] Eosinophils Absolute Auto 0.1 0.0 - 0.4 X10*3/uL [facility] Basophils Absolute Auto 0.0 0.0 - 0.2 X10*3/uL [facility] NRBC Abs Auto 0.000 0.0 - 0.012 X10*3/uL [facility] 07/27/2024 1:09 AM EST 07/27/2024 1:19 AM EST us Generic External Data Provider LAB BLOOD ORDERAB LES Final Result [facility] [address] [place] [address] [phone] * (ABNORMAL) Comprehensive Metabolic Panel (07/27/2024 1:09 AM EST) Sodium 140 135 - 145 mmol/L [facility] Potassium 3.1(L) 3.3 - 5.1 mmol/L [facility] Chloride 105 96 - 108 mmol/L [facility] Carbon Dioxide 23 22 - 29 mmol/L [facility] Anion Gap 15 12 - 20 [facility] Urea Nitrogen (BUN) 11 9 - 16 mg/dL [facility] Creatinine, Serum 0.73 0.5 - 1.4 mg/dL [facility] Creatinine Clr Calc Pharmacy 98.5 [facility] Comment:Provided height and weight: 162.56 cm,83.5 kg.eGFR (calculated from the MDRD study equation) and eCrCl(calculated from the Cockcroft-Gault equation) are based ondifferent parameters and may not yield comparable results.If eCrCl result is absurd, please check patient'sheight/weight. Estimated Glomerular Filt Rate >60 [facility] Comment:Chronic Kidney Disea se: Estimated GFR < 60 mL/min/1.37z1Eohzin Kidney Disease: Estimated GFR < 15 mL/min/1.73m2 Glucose 107 60 - 115 mg/dL [facility] Calcium 9.2 8.4 - 10.2 mg/dL [facility] Bilirubin, Total 0.5 0.0 - 1.0 mg/dL [facility] Aspartate Amino Transferase 48(H) 5 - 31 U/L [facility] Alanine Aminotransferase 32(H) 0 - 31 U/L [facility] Total Protein 8.5(H) 6.5 - 8.0 g/dL [facility] Albumin Level 3.7 3.5 - 5.0 g/dL [facility] Alkaline Phosphatase 151(H) 39 - 117 U/L [facility] 07/27/2024 1:09 AM EST 07/27/2024 1:19 AM EST us Generic External Data Provider LAB BLOOD ORDERAB LES Final Result [facility] [address] [place] [address] [phone] * XR Hip 2 or 3 Views Right (07/12/2024 3:30 AM EST) Anatomical Region Laterality Modality Lower Extremities, Hip Right Radiograp hic Imaging 07/12/2024 3:30 AM EST Narrative 07/12/2024 4:26 AM EST ? [facility] ?[address] ?[place] [address] ?XRay Report ? Signed ? Patient: Ginette Arceo ?MR ?? #: [id number] ? : 1975 ?Acct:[id number] ? Age/Sex: 48 / F ?ADM Date: 07/12/24 ? Loc: HO.ED ? Attending Dr: ? Ordering Physician: Megan Pathak DO ?? Date of Service: 07/12/24 ?? Procedure(s): XR hip RT min 2V ?? Accession Number(s): [id number] ? cc: Megan Pathak DO; [facility] ? EXAMINATION: ?? XR HIP, RIGHT [...] right thigh coursing beyond the image ?? [id number]. Surgical clip is projected over the left [...] DD/ 0330 ? TD/TT: 07/12/24 0350 ? Electrician Third: EF ? Procedure Note Donotuseinterpreter, Image - 07/12/[address] [address] XRay Report Signed Patient: Ginette ArceoMR #: [id number] : 1975Acct:[id number] Age/Sex: 48 / FADM Date: 07/12/24 Loc: HO.ED Attending Dr: Ordering Physician: Megan Pathak DO Date of Service: 07/12/24 Procedure(s): XR hip RT min 2V Accession Number(s): [id number] cc: Megan Pathak DO; [facility] EXAMINATION: XR HIP, RIGHT CLINICAL INFORMATION: [...] the right thigh coursing beyond the image [id number]. Surgical clip is projected over the left [...] 07/12/24 0422 DD/ 0330 TD/TT: 07/12/24 0350 Electrician Third: NICO[facility] External Provider IMG XR PROCEDURES Edited Result - Final * Hepatitis C Ab (04/11/2024 10:26 AM EDT) Hepatitis C Antibody Nonreactive Nonreactive [facility] Comment:Antibodies to HCV no t detected; does not exclude early acuteHCV infection. Blood Venous blood specimen / Unknown 04/11/2024 10:26 AM EDT 04/11/2024 11:19 AM EDT Mackenzie Estrada MD LAB BLOOD ORDERABLES Final Res ult Performing Organization Address City/[facility]/ZIP Co de Phone Number [facility] [address] [place] [address] [phone] * HIV-1/2 Antigen and Antibodies, Fourth Generation, with Reflexes (04/11/2024 10:26 AM EDT) HIV AB/AG Nonreactive Nonreactive [facility] Comment:HIV-1 p24 Ag and/or HIV-1/HIV-2 Ab not detected.A test result that is nonreactive does not exclude thepossibility of exposure to or infection with HIV-1 and/orHIV-2. Nonreactive results in this assay for individualswith prior exposure to HIV-1 and/or HIV-2 may be due toantigen and antibody levels that are below the limit ofdetection of this assay.The [employer] HIV Ag/Ab Combo assay result andsupplemental assay results should be interpreted inconjunction with the patient's clinical presentation,history and other laboratory results. If the results areinconsistent with clinical evidence, additional testing issuggested to confirm the result. Blood Venous blood specimen / Unknown 04/11/2024 10:26 AM EDT 04/11/2024 11:19 AM EDT us Mackenzie Estrada MD LAB BLOOD ORDERABLES Final Res ult Performing Organization Address City/[facility]/ZIP Co de Phone Number [facility] [address] [place] [address] [phone] * HPV mRNA E6/E7 w/Reflex to HPV Genotypes 16, 18/45 (09/29/2023 12:26 PM EST) HPV nRNA E6/E7 Not Detected Not Detected [facility] Comment:Methodology: Transcr iption-Mediated AmplificationThis assay detects E6/E7 viral messenger RNA (mRNA) from 14high-risk HPV types (16,18,31,33,35,39,45,51,52,56,58,59,66,68).Cervical sources are required for HPV testing.If a vaginal source from a patient who has had atotal hysterectomy with removal of cervix wassubmitted, please contact the testing laboratoryfor alternative testing options.For additional information, please refer tohttp://education.Kitchensurfing/faq/YAD354i0(This link if provided for information/educational purposes only.)THIS TEST WAS PERFORMED AT:[facility] [place] [phone] GALVAN MD HPV mRNA E6/E7 [facility] HPV 16 RNA TNP [facility] HPV 18/45 RNA [facility] 09/29/2023 12:2 6 PM EST 09/30/2023 11:30 AM EST Mackenzie Estrada MD LAB CYTOLOGY ORDERABLES Final Result Performing Organization Address City/State/[facility] Co de Phone Number [facility] [address] [place] [phone] * Pap Smear (09/29/2023 12:26 PM EST) 09/29/2023 12:2 6 PM EST 09/30/2023 11:30 AM EST Narrative [facility] - 10/12/2023 4:18 PM EDT ----- ------- Name: Ginette Arceo ?Age/Sex: 48/F ? : 1975 Unit#: [id number] ?? Attend Dr: Mackenzie Estrada ?Re09/29/23 ?Status: DEP REF ? Location: HO.CX ? Disch: ? ----- ------- SPEC : [id number] ? RECD: 09/30/23 ? STATUS: ??SOUT ? REQ NUM: [id number] ? BHAVIN: 09/29/23-1226 ? SUBM DR: Mackenzie Estrada ? ENTERED: ??09/30/23-7861 ?SP TYPE: Pap Smr ?OTHR DR: ? ORDERED: ??Pap Smear ? Interpretation ?? Satisfactory for evaluation. ?? Negative for intraepithelial lesion or malignancy. ?HPV mRNA E6/E7: ?NOT DETECTED ? This assay detects E6/E7 viral messenger RNA (mRNA) from 14 high-risk HPV types (16, 18, ?? 31, 33, 35, 39, 45, 51, 52, 56, 58, 59, 66, 68) ?? HPV testing performed by [facility], [place], [place]. ??See reference laboratory ?? portion of the EMR for entire report. ?Clinical Information LMP: Heavy menstrual bleeding past two weeks Previous PAP test: Unknown date/findings Other history: ? Material Received ?? ThinPrep-Cervical ----- ------- Signed (signature on file) BARB Hawley (ASCP) 10/12/23 6956 ? ----- ------- ? END OF REPORT ? us Mackenzie Estrada MD LAB CYTOLOGY ORDERABLES Final Result [facility] [address] [place] [phone] * Mammography Report 1 (10/09/2021 [...] 10/28/2017 Recommended 10 year follow up ([facility]) Historical Provider HEALTH MAINTENANCE Edited Result - Final from Last 3 Months or Most Recently Relevant to Health Maintenance Insurance * Guarantor: Ginette Arceo Account Type Relation to Patient Date of Phone Billing Address Personal/Family Self [address] [place] [address] [facility] Care Teams [employer] Consultant Relationship Specialty Start Date End Date Mackenzie Estrada MD [address] [place] [phone] PCP - General Family Medicine 07/10/20
--- OUTSIDE RECORDS SUMMARY | 2024-09-14 11:55 | XMS_ITS | Encounter Summary ---
Author Organization [employer] Address [address] [place] [address] Care Team Providers Care Personal Health Coach Name Role Phone Mackenzie Estrada MD Primary Care Provider [phone] Encounter Details Date Type Department Care Team (Late st Contact Info) Description 04/10/2024 Orders Only [facility] [address] [place], [place] [phone] Mackenzie Estrada MD [address] [place], [place] [phone] Social History Tobacco Use Types Packs/Day Years [...] Visit [facility] [address] [place] [address] Mackenzie Estrada MD [address] [place] [address] 10/01/2024 10:00 AM EST Office Visit [facility] [address] [place] [address] Kailash, Libra, OD [address] [place] [address] 11/06/2024 9:45 AM EDT Office Visit [facility] [address] [place] [phone] documented as of this encounter Goals Goal Patient Goal Type Associated Problems Recent Progress Patient-Stated? Author Quit using tobacco (cigarettes, smokeless, etc) Tobacco Use No Corey Lin, PharmD documented as of this encounter Visit Diagnoses Not on filedocumented in this encounter Care Teams Personal Health Coach Relationship Specialty Start Date End Date Mackenzie Estrada MD [address] [place] [phone] PCP - General Family Medicine 07/10/20 documented as of this encounter
--- OUTSIDE RECORDS SUMMARY | 2024-09-14 11:56 | XMS_ITS | Encounter Summary ---
Author Organization [employer] Address [address] [facility] 7t [place] [address] Care Team Providers Care House Cleaner Name Role Phone Mackenzie Estrada MD Primary Care Provider [phone] Reason for Visit * Reason Onset Date Comments Triage 11/10/2022 Encounter Details Date Type Department Care Team ([facility] Contact Info) Description 11/10/2022 Telephone [facility] MEDICINE [address] [place], [place] [phone] Mackenzie Estrada MD [address] [place], [place] [phone] Triage Social History Tobacco Use Types Packs/Day [...] - 11/11/2022 11:10 AM EDT TC to [phone] via Here@ Networks interpreters in regards to below message. Pt reports she went to [facility] since [facility] did not return her call. RN informed pt triage nurses attempted to call pt x2 however pt did not answer. RN reviewed [facility] ED note and pt presented to ED [...] however she has not been able to roll picker the nystatin medication because [facility] did not have it. RN asked if [facility] informed the pt they were going to order it however pt was not sure. RN placed pt on hold and called [facility] pharmacy who reports it is supposed to be arriving in store today and pt should call around 3pm to inquire if it was received and ready for roll picker. Pt verbalized understanding. RN advised pt if her rash does not resolve with medication and her pain does not resolve to call [facility] to schedule an appt for further evaluation. Pt verbalized understanding. Pt to F/U PRN. RN has printed ED note and placed in scan bin * Telephone Encounter - Chika Ingram LPN - 11/10/2022 2:30 PM EDT Triage call returned to patient with [place] risk control specialist [phone] to listed number x 2 no answer. Left message to return call to [phone]. Team Nurses tasked to follow with patient [...] Description 09/24/2024 3:15 PM EST Office Visit [facility] MEDICINE [address] [place] [address] Mackenzie Estrada MD 230 [place] [address] 10/01/2024 10:00 AM EST Office Visit [facility] OPTOMETRY [address] [place] [address] Kailash, Libra, OD 230 [place] [address] 11/06/2024 9:45 AM EDT Office Visit [facility] MEDICINE [address] [place] [address] documented as of this encounter Visit Diagnoses Not on filedocumented in this encounter Care Teams House Cleaner Relationship Specialty Start Date End Date Mackenzie Estrada MD [address] [place] [address] PCP - General Family Medicine 07/10/20 documented as of this encounter
--- OUTSIDE RECORDS SUMMARY | 2024-09-14 11:56 | XMS_ITS | Encounter Summary ---
Author Organization [employer] [facility] Address [address] [facility] 7t [place] [address] Care Team Providers Care Information Security Manager Name Role Phone Mackenzie Estrada MD Primary Care Provider [phone] Reason for Visit * Reason Comments Med Refill Encounter Details Date Type Department Care Team (Late Contact Info) Description 09/22/2022 Refill [facility] [address] [place] [address] [phone] Sarika Palacios ANP [address] [place], [place] [phone] Tinea pedis of both feet Social History [...] Description 09/24/2024 3:15 PM EST Office Visit [facility] [address] [place] [address] Mackenzie Estrada MD [address] [place] [address] [phone] 10/01/2024 10:00 AM EST Office Visit [facility] OPTOMETRY [address] [place], [place] [phone] Libra Linder, OD 230 [place] [address] 11/06/2024 9:45 AM EDT Office Visit [facility] MED[facility]INE 230 [place] [address] documented as of this encounter Visit Diagnoses Diagnosis Tinea pedis of both feet documented in this encounter Care Teams Information Security Manager Relationship Specialty Start Date End Date Mackenzie Estrada MD 230 [place], [place] [phone] PCP - General Family Medicine 07/10/20 documented as of this encounter
--- OUTSIDE RECORDS SUMMARY | 2024-09-14 11:56 | XMS_ITS | Encounter Summary ---
Author Organization [employer] Address [address] [facility] [address] 7t [place] [address] Care Team Providers Care Stuffed Casing Tier Name Role Phone Mackenzie Estrada MD Primary Care Provider [phone] Encounter Details Date Type Department Care Team (Late st Contact Info) Description 05/10/2024 Orders Only [facility] MEDICINE 230 [place], [place] [phone] Mackenzie Estrada MD 230 [place], [place] [phone] Social History Tobacco Use Types Packs/Day Years [...] Description 09/24/2024 3:15 PM EST Office Visit [facility] MEDICINE 230 [place] [address] Mackenzie Estrada MD 230 [place] [address] 10/01/2024 10:00 AM EST Office Visit [facility] OPTOMETRY [address] [place] [address] Kailash, Libra, OD 230 [place] [address] 11/06/2024 9:45 AM EDT Office Visit [facility] MED[facility]INE 230 [place] [address] documented as of this encounter Goals Goal Patient Goal Type Associated Problems Recent Progress Patient-Stated? Author Quit using tobacco (cigarettes, smokeless, etc) Tobacco Use No Corey Lin, KelechiD documented as of this encounter Visit Diagnoses Not on filedocumented in this encounter Additional Health Concerns Assessment Noted Time PHQ-9 Depression Total Score: 2 04/30/20 10:41 AM EDT documented as of this encounter Care Teams Stuffed Casing Tier Relationship Specialty Start Date End Date Mackenzie Estrada MD 230 [place] [address] PCP - General Family Medicine 07/10/20 documented as of this encounter
--- OUTSIDE RECORDS SUMMARY | 2024-09-14 11:56 | XMS_ITS | Encounter Summary ---
Author Organization [employer] Address [address] [facility] [address] 7t [place] [address] Care Team Providers Care Dietetic Assistant Name Role Phone Mackenzie Estrada MD Primary Care Provider [phone] Reason for Visit * Reason Comments Med Refill Encounter Details Date Type Department Care Team ([facility] st Contact Info) Description 08/26/2023 Refill [facility] MEDICINE 230 [place] [address] Sisi Kennedy FNP [address] [place], [place] [phone] Viral upper respiratory tract infection Social History [...] Description 09/24/2024 3:15 PM EST Office Visit [facility] MEDICINE [address] [place] [address] Mackenzie Estrada MD [address] [place] [address] 10/01/2024 10:00 AM EST Office Visit [facility] OPTOMETRY [address] [place] [address] Kailash, Libra, OD 230 [place] [address] 11/06/2024 9:45 AM EDT Office Visit [facility] MEDICINE [address] [place] [address] documented as of this encounter Goals Goal Patient Goal Type Associated Problems Recent Progress Patient-Stated? Author Quit using tobacco (cigarettes, smokeless, etc) Tobacco Use No Corey Lin, KelechiD documented as of this encounter Visit Diagnoses Diagnosis Viral upper respiratory tract infection Acute upper respiratory infections of unspecified site documented in this encounter Care Teams Dietetic Assistant Relationship Specialty Start Date End Date Mackenzie Estrada MD [address] [place] [address] PCP - General Family Medicine 07/10/20 documented as of this encounter
--- OUTSIDE RECORDS SUMMARY | 2024-09-14 11:56 | XMS_ITS | Encounter Summary ---
Author Organization [employer] [facility] Address [address] [facility] 7t [place] [address] Care Team Providers Care Supervisor Production Managing Name Role Phone Mackenzie Estrada MD Primary Care Provider [phone] Reason for Visit * Reason Comments Med Refill Encounter Details Date Type Department Care Team (Late Contact Info) Description 07/28/2022 Refill [facility] MEDICINE 230 [place] [address] Mackenzie Estrada MD 230 [place] [address] Pain in both hands Social History Tobacco [...] Description 09/24/2024 3:15 PM EST Office Visit [facility] MEDICINE [address] [place] [address] Mackenzie Estrada MD 230 [place] [address] 10/01/2024 10:00 AM EST Office Visit [facility] OPTOMETRY [address] [place], [place] [phone] Libra Linder, OD 230 [place] [address] 11/06/2024 9:45 AM EDT Office Visit [facility] MEDICINE 230 [place] [address] documented as of this encounter Visit Diagnoses Diagnosis Pain in both hands documented in this encounter Care Teams Supervisor Production Managing Relationship Specialty Start Date End Date Mackenzie Estrada MD 230 [place], [place] [phone] PCP - General Family Medicine 07/10/20 documented as of this encounter
--- OUTSIDE RECORDS SUMMARY | 2024-09-14 11:56 | XMS_ITS | Encounter Summary ---
Author Organization [employer] Address [address] [facility] [address] 7t [place] [address] Care Team Providers Care Winder Fixer Name Role Phone Mackenzie Estrada MD Primary Care Provider [phone] Reason for Visit * Reason Onset Date Comments Error 08/16/2023 Encounter Details Date Type Department Care Team ([facility] Contact Info) Description 08/16/2023 Telephone [facility] MEDICINE 230 [place], [place] [phone] Mackenzie Estrada MD 230 [place], [place] [phone] Error Social History Tobacco Use Types Packs/Day [...] Description 09/24/2024 3:15 PM EST Office Visit [facility] MEDICINE [address] [place] [address] Mackenzie Estrada MD [address] [place] [address] 10/01/2024 10:00 AM EST Office Visit [facility] OPTOMETRY 267 [place] [address] Kailash, Libra, OD 230 [place] [address] 11/06/2024 9:45 AM EDT Office Visit [facility] MEDICINE [address] [place] [address] documented as of this encounter Goals Goal Patient Goal Type Associated Problems Recent Progress Patient-Stated? Author Quit using tobacco (cigarettes, smokeless, etc) Tobacco Use No Corey Lin, KelechiD documented as of this encounter Visit Diagnoses Not on filedocumented in this encounter Care Teams Winder Fixer Relationship Specialty Start Date End Date Mackenzie Estrada MD [address] [place] [address] PCP - General Family Medicine 07/10/20 documented as of this encounter
--- OUTSIDE RECORDS SUMMARY | 2024-09-14 11:56 | XMS_ITS | Encounter Summary ---
Author Organization [employer] [facility] Address 75 [facility] 7t [place] [address] Care Team Providers Care Net Developer Name Role Phone Mackenzie Estrada MD Primary Care Provider [phone] Encounter Details Date Type Department Care Team ([facility] Contact Info) Description 03/29/2023 Abstract [facility] MEDICINE 230 [place] [address] Cecilia Henriquez Social History Tobacco Use Types [...] Upcoming Encounters Date Type Department Care Team ([facility] Contact Info) Description 09/24/2024 3:15 PM EST Office Visit [facility] MEDICINE 230 [place] [address] Mackenzie Estrada MD 230 [place] [address] 10/01/2024 10:00 AM EST Office Visit [facility] OPTOMETRY [address] [place] [address] Libra Linder OD 230 [place] [address] 11/06/2024 9:45 AM EDT Office Visit [facility] MEDICINE [address] [place] [phone] documented as of this encounter Procedures Procedure Name Priority Date/Time Associated Diagnosis Comments COLONOSCOPY Routine 10/28/2017 documented in this encounter Results * Colonoscopy (10/28/2017) Colonoscopy Normal Normal Narrative Cecilia Henriquez - 10/28/2017 Recommended 10 year follow up ([facility] [place] Historical Provider Sensorion MAINTENANCE Edited Result - Final documented in this encounter Visit Diagnoses Not on filedocumented in this encounter Care Teams Net Developer Relationship Specialty Start Date End Date Mackenzie Estrada MD [address] [place] [address] PCP - General Family Medicine 07/10/20 documented as of this encounter
--- OUTSIDE RECORDS SUMMARY | 2024-09-14 11:56 | XMS_ITS | Encounter Summary ---
Author Organization [employer] Address [address] [facility] [address] [facility] [address] 7t [place] [address] Care Team Providers Care Data Communications Software Consultant Name Role Phone Mackenzie Estrada MD Primary Care Provider [phone] Reason for Visit * Reason Onset Date Comments Hospital Follow-up 02/24/2024 Encounter Details Date Type Department Care Team ([facility] st Contact Info) Description 02/24/2024 Telephone [facility] MEDICINE 230 [place], [place] [phone] Mackenzie Estraad MD 230 [place] [address] Hospital Follow-up Social History Tobacco Use Types [...] from pt requesting a HDF appt. Hospital: [facility] Date of admission: 02/19 Discharge date: 02/23 Diagnosed: Rectal Bleeding Liberian Speaker documented in this encounter Plan of Treatment Upcoming Encounters Date Type Department Care Team (Late st Contact Info) Description 09/24/2024 3:15 PM EST Office Visit [facility] MEDICINE [address] [place] [address] Mackenzie Estrada MD 230 [place] [address] 10/01/2024 10:00 AM EST Office Visit [facility] OPTOMETRY [address] [place] [address] Libra Linder OD 230 [place] [address] 11/06/2024 9:45 AM EDT Office Visit [facility] MEDICINE 230 [place] [address] documented as of this encounter Goals Goal Patient Goal Type Associated Problems Recent Progress Patient-Stated? Author Quit using tobacco (cigarettes, smokeless, etc) Tobacco Use No Corey Lin, Bailey documented as of this encounter Visit Diagnoses Not on filedocumented in this encounter Care Teams Data Communications Software Consultant Relationship Specialty Start Date End Date Mackenzie Estrada MD 230 [place] [address] PCP - General Family Medicine 07/10/20 documented as of this encounter
--- OUTSIDE RECORDS SUMMARY | 2024-09-14 11:56 | XMS_ITS | Encounter Summary ---
Author Organization [employer] Address [address] [facility] [address] 7t [place] [address] Care Team Providers Care Business Operations Specialist Name Role Phone Mackenzie Estrada MD Primary Care Provider [phone] Encounter Details Date Type Department Care Team ([facility] st Contact Info) Description 05/21/2024 Telephone [facility] MEDICINE 230 [place], [place] [phone] Mackenzie Estrada MD 230 [place], [place] [phone] Social History Tobacco Use Types Packs/Day Years [...] 3:15 PM EST Office Visit [facility] MEDICINE 230 [place] [address] Mackenzie Estrada MD 230 [place] [address] 10/01/2024 10:00 AM EST Office Visit [facility] OPTOMETRY [address] [place] [address] Kailsah, Libra, OD 230 [place] [address] 11/06/2024 9:45 AM EDT Office Visit [facility] MEDICINE 230 [place] [address] documented as of this encounter Goals Goal Patient Goal Type Associated Problems Recent Progress Patient-Stated? Author Quit using tobacco (cigarettes, smokeless, etc) Tobacco Use No Corey Lin, KelechiD documented as of this encounter Visit Diagnoses Not on filedocumented in this encounter Additional Health Concerns Assessment Noted Time PHQ-9 Depression Total Score: 2 04/30/20 10:41 AM EDT documented as of this encounter Care Teams Business Operations Specialist Relationship Specialty Start Date End Date Mackenzie Estrada MD 230 [place] [address] PCP - General Family Medicine 07/10/20 documented as of this encounter
--- OUTSIDE RECORDS SUMMARY | 2024-09-14 11:56 | XMS_ITS | Encounter Summary ---
Author Organization [employer] Address [address] [facility] [address] 7t [place] [address] Care Team Providers Care Paper Stacker Name Role Phone Mackenzie Estrada MD Primary Care Provider [phone] Reason for Visit * Reason Comments Med Refill Encounter Details Date Type Department Care Team ([facility] st Contact Info) Description 01/12/2024 Refill [facility] MEDICINE 230 [place], [place] [phone] Mackenzie Estrada MD 230 [place], [place] [phone] Rheumatoid arthritis involving multiple sites with positive rheumatoid factor ([facility]) Social History Tobacco Use Types Packs/Day [...] PM EST Office Visit [facility] MEDICINE [address] [place] [address] Mackenzie Estrada MD 230 [place] [address] 10/01/2024 10:00 AM EST Office Visit [facility] OPTOMETRY [address] [place] [address] Kailash, Libra, OD 230 [place] [address] 11/06/2024 9:45 AM EDT Office Visit [facility] MEDICINE [address] [place] [address] documented as of this encounter Goals Goal Patient Goal Type Associated Problems Recent Progress Patient-Stated? Author Quit using tobacco (cigarettes, smokeless, etc) Tobacco Use No Corey Lin, KelechiD documented as of this encounter Visit Diagnoses Diagnosis Rheumatoid arthritis involving multiple sites with positive rheumatoid factor ([facility]) documented in this encounter Care Teams Paper Stacker Relationship Specialty Start Date End Date Mackenzie Estrada MD [address] [place] [address] PCP - General Family Medicine 07/10/20 documented as of this encounter
--- OUTSIDE RECORDS SUMMARY | 2024-09-14 11:56 | XMS_ITS | Encounter Summary ---
Author Organization [employer] Address [address] [facility] [address] 7t [place] [address] Care Team Providers Care Rn Appeals Name Role Phone Mackenzie Estrada MD Primary Care Provider [phone] Reason for Visit * Reason Comments Med Refill Encounter Details Date Type Department Care Team ([facility] Contact Info) Description 07/27/2023 Refill [facility] MEDICINE 230 [place], [place] [phone] Name, MD Mark 230 [place] [address] Pain in both hands Social History Tobacco [...] Description 09/24/2024 3:15 PM EST Office Visit [facility] MEDICINE [address] [place] [address] Mackenzie Estrada MD 230 [place] [address] 10/01/2024 10:00 AM EST Office Visit [facility] OPTOMETRY [address] [place] [address] Kailash, Libra, OD 230 [place] [address] 11/06/2024 9:45 AM EDT Office Visit [facility] MED[facility]INE [address] [place] [address] documented as of this encounter Goals Goal Patient Goal Type Associated Problems Recent Progress Patient-Stated? Author Quit using tobacco (cigarettes, smokeless, etc) Tobacco Use No Corey Lin, PharmD documented as of this encounter Visit Diagnoses Diagnosis Pain in both hands documented in this encounter Care Teams Rn Appeals Relationship Specialty Start Date End Date Mackenzie Estrada MD [address] [place] [address] [phone] PCP - General Family Medicine 07/10/20 documented as of this encounter
--- OUTSIDE RECORDS SUMMARY | 2024-09-14 11:56 | XMS_ITS | Encounter Summary ---
Author Organization [employer] [facility] Address [address] [facility] 7t [place] [address] Care Team Providers Care Patternmaker Name Role Phone Mackenzie Estrada MD Primary Care Provider [phone] Reason for Visit * Reason Comments Med Refill Encounter Details Date Type Department Care Team ([facility] Contact Info) Description 08/25/2022 Refill [facility] MEDICINE [address] [place] [address] [phone] Mackenzie Estrada MD 230 [place], [place] [phone] Pain in both hands Social History Tobacco [...] Upcoming Encounters Date Type Department Care Team ([facility] Contact Info) Description 09/24/2024 3:15 PM EST Office Visit [facility] MEDICINE [address] [place] [address] [phone] Mackenzie Estrada MD [address] [place], [place] [phone] 10/01/2024 10:00 AM EST Office Visit [facility] OPTOMETRY [address] [place], [place] [phone] Libra Linder, OD [address] [place] [address] 11/06/2024 9:45 AM EDT Office Visit [facility] MEDICINE 230 [place] [address] documented as of this encounter Visit Diagnoses Diagnosis Pain in both hands documented in this encounter Care Teams Patternmaker Relationship Specialty Start Date End Date Mackenzie Estrada MD [address] [place], [place] [phone] PCP - General Family Medicine 07/10/20 documented as of this encounter
--- OUTSIDE RECORDS SUMMARY | 2024-09-14 11:56 | XMS_ITS | Clinical Summary ---
Author Organization [facility] Address [address] [place] [address] Support Name Relationship Address Phone Brayden Hernandez Emergency Contact [address] [place] [address] Care Team Providers Care Extension Service Specialist Name Role Phone Abdullahi Lizarraga MD Primary Care Provider [phone] Allergies Active Allergy Reactions Criticality Noted Date [...] age to complete this topic Care Teams Extension Service Specialist Relationship Specialty Start Date End Date Abdullahi Lizarraga MD [address] [place] [address] PCP - General Nephrology 03/10/18
--- OUTSIDE RECORDS SUMMARY | 2024-09-14 11:56 | XMS_ITS | Encounter Summary ---
Author Organization [employer] Address [address] [facility] [address]t [place] [address] Care Team Providers Care Gallery Or Museum Attendant Name Role Phone Mackenzie Estrada MD Primary Care Provider [phone] Reason for Visit * Reason Onset Date Comments Appointment Request 08/16/2023 Encounter Details Date Type Department Care Team ([facility] Contact Info) Description 08/16/2023 Telephone [facility] MEDICINE [address] [place], [place] [phone] Mackenzie Estrada MD [address] [place] [address] Appointment Request Social History Tobacco Use Types [...] be seen today. Please contact pt @ [phone] Syrian Speaker documented in this encounter Plan of Treatment Upcoming Encounters Date Type Department Care Team (Late st Contact Info) Description 09/24/2024 3:15 PM EST Office Visit [facility] MEDICINE [address] [place] [address] Mackenzie Estrada MD [address] [place] [address] 10/01/2024 10:00 AM EST Office Visit [facility] OPTOMETRY [address] [place] [address] Libra Linder, OD 230 [place] [address] 11/06/2024 9:45 AM EDT Office Visit [facility] MEDICINE [address] [place] [address] documented as of this encounter Goals Goal Patient Goal Type Associated Problems Recent Progress Patient-Stated? Author Quit using tobacco (cigarettes, smokeless, etc) Tobacco Use No Corey Lin, PharmD documented as of this encounter Visit Diagnoses Not on filedocumented in this encounter Care Teams Gallery Or Museum Attendant Relationship Specialty Start Date End Date Mackenzie Estrada MD [address] [place] [address] PCP - General Family Medicine 07/10/20 documented as of this encounter
--- OUTSIDE RECORDS SUMMARY | 2024-09-14 11:56 | XMS_ITS | Encounter Summary ---
Author Organization [employer] Address [address] 7t [place] [address] Care Team Providers Care Supervisor Aircraft Maintenance Name Role Phone Mackenzie Estrada MD Primary Care Provider [phone] Reason for Visit * Reason Comments Med Refill Encounter Details Date Type Department Care Team ([facility] Contact Info) Description 07/21/2023 Refill [facility] MEDICINE 230 [place], [place] [phone] Name, MD Mark 230 [place] [address] Pain in both hands Social History Tobacco [...] 3:15 PM EST Office Visit [facility] MED[facility]INE [address] [place] [address] Mackenzie Estrada MD 230 [place] [address] 10/01/2024 10:00 AM EST Office Visit [facility] OPTOMETRY [address] [place] [address] Kailash, Libra, OD 230 [place] [address] 11/06/2024 9:45 AM EDT Office Visit [facility] MEDICINE [address] [place] [address] documented as of this encounter Goals Goal Patient Goal Type Associated Problems Recent Progress Patient-Stated? Author Quit using tobacco (cigarettes, smokeless, etc) Tobacco Use No Corey Lin, PharmD documented as of this encounter Visit Diagnoses Diagnosis Pain in both hands documented in this encounter Care Teams Supervisor Aircraft Maintenance Relationship Specialty Start Date End Date Mackenzie Estrada MD [address] [place] [address] [phone] PCP - General Family Medicine 07/10/20 documented as of this encounter
--- OUTSIDE RECORDS SUMMARY | 2024-09-14 11:56 | XMS_ITS | Encounter Summary ---
Author Organization [employer] Address [address] 7t [place] [address] Care Team Providers Care Cross Cut Saw Operator Name Role Phone Mackenzie Estrada MD Primary Care Provider [phone] Encounter Details Date Type Department Care Team (Late st Contact Info) Description 06/01/2023 Orders Only [facility] MEDICINE 230 [place], [place] [phone] Mackenzie Estrada MD 230 [place] [address] Encounter for smoking cessation counseling (Primary Dx) [...] Description 09/24/2024 3:15 PM EST Office Visit [facility] MEDICINE [address] [place] [address] Mackenzie Estrada MD [address] [place] [address] 10/01/2024 10:00 AM EST Office Visit [facility] OPTOMETRY [address] [place] [address] Kailash, Libra, OD 230 [place] [address] 11/06/2024 9:45 AM EDT Office Visit [facility] MEDICINE [address] [place] [phone] documented as of this encounter Goals Goal Patient Goal Type Associated Problems Recent Progress Patient-Stated? Author Quit using tobacco (cigarettes, smokeless, etc) Tobacco Use No Corey Lin, PharmFrancia documented as of this encounter Visit Diagnoses Diagnosis Encounter for smoking cessation counseling- Primary documented in this encounter Care Teams Cross Cut Saw Operator Relationship Specialty Start Date End Date Mackenzie Estrada MD [address] [place] [address] [phone] PCP - General Family Medicine 07/10/20 documented as of this encounter
--- OUTSIDE RECORDS SUMMARY | 2024-09-14 11:56 | XMS_ITS | Encounter Summary ---
Author Organization [employer] Address [address] 7t [place] [address] Care Team Providers Care Instrument/Control Technician Name Role Phone Mackenzie Estrada MD Primary Care Provider [phone] Reason for Visit * Reason Comments Med Refill Encounter Details Date Type Department Care Team ([facility] Contact Info) Description 07/26/2023 Refill [facility] MEDICINE 230 [place], [place] [phone] Name, MD Mark 230 [place] [address] Pain in both hands Social History Tobacco [...] Visit [facility] MEDICINE [address] [place] [address] Mackenzie Estrada MD 230 [place] [address] 10/01/2024 10:00 AM EST Office Visit [facility] OPTOMETRY [address] [place] [address] Kailash, Libra, OD 230 [place] [address] 11/06/2024 9:45 AM EDT Office Visit [facility] MEDICINE [address] [place] [address] documented as of this encounter Goals Goal Patient Goal Type Associated Problems Recent Progress Patient-Stated? Author Quit using tobacco (cigarettes, smokeless, etc) Tobacco Use No Corey Lin, PharmD documented as of this encounter Visit Diagnoses Diagnosis Pain in both hands documented in this encounter Care Teams Instrument/Control Technician Relationship Specialty Start Date End Date Mackenzie Estrada MD [address] [place] [address] [phone] PCP - General Family Medicine 07/10/20 documented as of this encounter
--- OUTSIDE RECORDS SUMMARY | 2024-09-14 11:56 | XMS_ITS | Encounter Summary ---
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 [...] the past 12 months, has t he [employer], gas, oil or water company threatened to [...] Description 09/24/2024 3:15 PM EST Office Visit [facility] MEDICINE 230 [place] [address] Mackenzie Estrada MD 230 [place] [address] 10/01/2024 10:00 AM EST Office Visit [facility] OPTOMETRY [address] [place] [address] Libra Linder, OD 230 [place] [address] 11/06/2024 9:45 AM EDT Office Visit [facility] MEDICINE 230 [place] [address] documented as of this encounter Goals Goal [...] documented as of this encounter Care Teams Audio Production Engineer Relationship Specialty Start Date End Date Mackenzie Estrada MD 230 [place] [address] PCP - General Family Medicine 07/10/20 documented as of this encounter
== END 2024-09-14 10:08 | disposition home or self-care (01) ==
LOC: HO.HOSX 10:07
PROVIDERS: PCP General Practice; Visit Provider Physical Medicine & Rehabilitation
DX: M05.9 Rheumatoid arthritis with rheumatoid factor, unspecified (principal); M79.7 Fibromyalgia; M79.602 Pain in left arm; G56.03 Carpal tunnel syndrome, bilateral upper limbs
CPT/HCPCS: 73010; 73060; 73080; 99202

== ENCOUNTER 2024-09-14 10:07 | Outpatient (AMB) | payer MEDICAID, SELFPAY ==
--- NOTE | 2024-09-14 10:33 | MHC.OFFVIS ---
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 She was referred by Tigist Goff who gave her a cortisone injection to her left shoulder on 08/27/24. States injection helped however she has notice a small lump on her biceps. Patient states she has swelling in her left wrist that has worsen. She has mild numbness and tingling in bilateral hands. EMG done in 2020. Hx of lupus, O.A, R.A and is taking medication for blood clots. Project Management Analyst Required: Yes Project Management Analyst Services: Project Management Analyst Present Project Management Analyst Name: Tia BLAKELY Allergies almond [ALMONDS] Allergy (Severe, Verified 09/14/24 10:38) ANAPHYLAXIS adhesive tape [ADHESIVE TAPE] Allergy (Intermediate, Verified 09/14/24 10:38) RASH morphine [MORPHINE] Allergy (Intermediate, Verified 09/14/24 10:38) GI UPSET, difficulty breathing leflunomide Adverse Reaction (Intermediate, Verified 09/14/24 10:38) twitching tramadol [TRAMADOL] Adverse Reaction (Unknown, Verified 09/14/24 10:38) NAUSEA & VOMITING Medication List - Last Reconciled 09/14/24 by Madonna Melara MD acetaminophen (Tylenol Extra Strength) 500 mg PO QID PRN albuterol sulfate 90 mcg/actuation 2 puffs inhalation Q6H PRN alprazolam 1 mg PO BEDTIME PRN apixaban (Eliquis) 5 mg PO BID ascorbic acid (vitamin C) (Vitamin C) 1,000 mg (2 x 500 mg) PO QAM atorvastatin 80 mg PO DAILY benztropine 0.5 mg PO DAILY cetirizine 10 mg PO QAM cholecalciferol (vitamin D3) (Vitamin D3) 25 mcg PO DAILY clopidogrel 75 mg PO DAILY cyanocobalamin (vitamin B-12) 1,000 mcg IM QMONTH cyclobenzaprine 5 mg PO TID PRN diclofenac sodium 1% 2 grams topical QID docusate sodium (Colace) 100 mg PO BID PRN doxycycline hyclate 100 mg PO BID 7 days famotidine 20 mg PO BID ferrous sulfate 325 mg PO QAM folic acid 1 mg PO DAILY gabapentin 400 mg PO TID lidocaine 5% (Lidoderm) 1 patch topical DAILY lidocaine-prilocaine 2.5-2.5 % 1 appl topical Q8-12H PRN methotrexate sodium 25 mg (10 x 2.5 mg) PO QWEEK metoprolol succinate ER 50 mg PO DAILY nicotine 1 patch transdermal Q24H nicotine 1 patch topical QAM nicotine (polacrilex) 4 mg PO DIRECTED oxycodone-acetaminophen 7.5-325 mg 1 tab PO Q8H PRN pantoprazole 40 mg PO DAILY polyethylene glycol 3350 17 grams PO DAILY PRN prednisone 40 mg (2 x 20 mg) PO DAILY risperidone 0.5 mg PO DAILY PRN sertraline (Zoloft) 75 mg PO DAILY trazodone 150 mg PO BEDTIME PRN umeclidinium 62.5 mcg/actuation (Incruse Ellipta) 1 inh inhalation DAILY ursodiol 250 mg PO BID vitamin A 1 cap PO DAILY HPI Comments Details: Points to left upper trapezius as source of pain. Lump on deltoid area since 2 weeks ago, without inciting factors. Had left shoulder injection 08/22/24 by ortho, which helped with the shoulder pain. B12 injections to either arm, for a few years, last August 2024. Hand numbness bilateral, with swelling on fingers and hand. History of RA, lupus, and AVN of left hip. Follows Rheumatology. She gets infusion in the hospital, 4 days ago. Next appointment with Rheum 10/17/23. EMG by Dr. Odonnell 2020 showed right CTS. No mention of CTS on left. On Eliquis for history of DVT, on different body parts per patient. Last US was for RUE, no DVT. Follows Dr. Drew for right knee pain, getting MRI. [facility] Medical History Iron deficiency Seropositive rheumatoid arthritis Skin lesion Anxiety Achilles tendinitis Superficial femoral artery occlusion Knee pain, left Depression Hx of peripheral pulmonary artery stenosis PAD (peripheral artery disease) History of chemotherapy Cancer of heart Bone cancer Lung cancer Bleeding hemorrhoid Degeneration, intervertebral disc, lumbar Chronic GERD Degeneration of intervertebral disc at C4-C5 level Osteoarthritis of spine with radiculopathy, lumbar region Fibromyalgia Esophageal dysphagia Vitamin D deficiency Systemic lupus erythematosus Seropositive rheumatoid arthritis Rheumatoid arthritis involving multiple sites Gallstones Stress incontinence in female Nocturia Urgency-frequency syndrome De Quervain's disease (tenosynovitis) Depressive disorder Acute arthritis Hodgkin disease Surgical History History of heart surgery History of surgical removal of skin lesion (~07/13/23) History of angioplasty of vein History of biopsy H/O tubal ligation Hx of endoscopy Hx laparoscopic cholecystectomy Hx of colonoscopy History of esophagogastroduodenoscopy (EGD) History of repair of inguinal hernia History of lymph node dissection of left axilla Family History Maternal Grandmother Ovarian cancer Social History Household Members: Significant Other Housing: Apartment Are you a primary director of primary care to a significant other at home: No Alcohol intake: never Comment: son at bedside Patient Tobacco Use Status: Never used Tobacco Tobacco use type: Cigarette Cigarette Packs Per Day: 1 Cigarettes Per Day: 20.0 Substance Use Type: Marijuana Advance Directives Date on File: 02/24/24 service: No Current occupational status: disabled 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 Patient was appropriately conversant and oriented. Good historian. MSK: Inspection reveals appropriate head and neck positioning. Tender to touch in left upper trapezius and left deltoid but no palpable mass. It actually appears symmetric to the right side. Swelling on both hands, left worse than right. Almost sausage like appearance in the left fingers with swan-neck deformity on left 5th digit. Cervical ROM was full. Spurling's sign negative. Bilateral shoulder, elbow and wrist ROM WNL. No ligamentous laxity or crepitance. No increased effusion. Neurological: Neurologic examination of the upper and lower extremities was nonfocal with intact sensation, muscle stretch reflexes and without focal motor deficits . Thurman?s negative bilaterally. Gait is non-antalgic without loss of balance. Results Reviewed Results Reviewed: I independently reviewed the results of the following: EMG as above Ordering Physician: Jana Mcdaniel Date of Service: 07/27/24 Procedure(s): XR clavicle LT Accession Number(s): [id number] cc: Mackenzie Estrada; Jana Mcdaniel~ EXAMINATION: XR CLAVICLE, LEFT CLINICAL INFORMATION: pain COMPARISON: None available. TECHNIQUE: Straight AP and cephalad angulated AP views of the left clavicle. FINDINGS: The clavicle is intact. The bones and soft tissues are normal. No fracture. Acromioclavicular joint alignment is anatomic. XR/XR clavicle LT IMPRESSION: Normal left clavicle. Electronically signed by: Arian Mondragon MD 07/27/2024 09:05 AM YOOSE Ordering Physician: Jana Mcdaniel Date of Service: 07/27/24 Procedure(s): XR shoulder LT min 2V Accession Number(s): [id number] cc: Mackenzie Estrada; Jana Mcdaniel~ EXAMINATION: XR SHOULDER, LEFT CLINICAL INFORMATION: pain COMPARISON: None available. TECHNIQUE: AP external rotation, Grashey, scapular Y, and axillary views of the left shoulder. FINDINGS: No fracture, dislocation, or suspicious bone lesion. There is normal alignment. Glenohumeral joint space and AC joint appear normal. Neutral lateral acromion without significant spurring. No evidence of outlet stenosis. Subacromial space is preserved. Tiny amount of calcification of the supraspinatous tendon abutting the footplate attachment. Soft tissues otherwise normal. Remainder of the bony structures and soft tissues appear normal. XR/XR shoulder LT min 2V IMPRESSION: 1. No acute findings, or significant arthritic changes left shoulder. 2. Mild calcific tendinopathy of the infraspinatus tendon. Electronically signed by: Arian Mondragon MD 07/27/2024 09:09 AM YOOSE I reviewed records from the following: Ortho, Rheumatology Assessment & Plan Assessment & Plan (1) Seropositive rheumatoid arthritis: Comment: RF++CCP++ On prednisone throughout until it was discontinued 10/2023 due to left femur avascular necrosis methotrexate and hydroxychloroquine ?2020 Xeljanz 05/2020-08/2020(ineffective) 2020 methotrexate and Humira(HCQ stopped - ?vision changes). 06/2022 Humira stopped due to poor repsonse 06/2022 methotrexate and Actemra 12/2022: Actemra stopped by the patient. She had some leg swelling as well. 03/10/2023 and 03/24/23: 1 g on each day rituximab administered Olumiant 08/2023 effective Leflunomide added 01/2024 ineffective and caused twitching Orencia infusions 05/2024 Code(s): M05.9 - Rheumatoid arthritis with rheumatoid factor, unspecified Category: Medical (2) Fibromyalgia: Code(s): M79.7 - Fibromyalgia Category: Medical (3) Myofascial pain syndrome, cervical: Code(s): M79.18 - Myalgia, other site Category: Medical (4) Carpal tunnel syndrome on both sides: Code(s): G56.03 - Carpal tunnel syndrome, bilateral upper limbs Category: Medical Plan Suspect her rheumatoid arthritis is acting up causing the inflammation on her hands. Myofascial pain/fibromyalgia. We will do some x-rays, humerus and scapular x-rays today. We will schedule for EMG to confirm Carpal Tunnel Syndrome, bilateral. She needs to follow up with Rheumatology. Assessment and plan discussed with patient, and patient was agreeable. All questions were answered thoroughly. Madonna Melara MD, SOBIA Board Certified, [place] Board [employer] and Rehabilitation (ABPMR) Board Certified, [place] Board of Electrodiagnostic Medicine (ABEM) Orders: Orders NE nerve conduction velocity Today G56.03 - Carpal tunnel syndrome, bilateral upper limbs, M05.9 - Rheumatoid arthritis with rheumatoid factor, unspecified, M79.18 - Myalgia, other site, M79.602 - Pain in left arm, M79.7 - Fibromyalgia NE electromyogram (EMG) Today M05.9 - Rheumatoid arthritis with rheumatoid factor, unspecified, M79.18 - Myalgia, other site, M79.602 - Pain in left arm, M79.7 - Fibromyalgia XR elbow LT min 3V Today M05.9 - Rheumatoid arthritis with rheumatoid factor, unspecified, M79.18 - Myalgia, other site, M79.602 - Pain in left arm, M79.7 - Fibromyalgia XR humerus LT Today M05.9 - Rheumatoid arthritis with rheumatoid factor, unspecified, M79.18 - Myalgia, other site, M79.602 - Pain in left arm, M79.7 - Fibromyalgia XR scapula LT Today M05.9 - Rheumatoid arthritis with rheumatoid factor, unspecified, M79.18 - Myalgia, other site, M79.602 - Pain in left arm, M79.7 - Fibromyalgia Coding Level of Care Code New Pt Level 4 (19256) Diagnoses Seropositive rheumatoid arthritis M05.9 Fibromyalgia M79.7 Myofascial pain syndrome, cervical M79.18 Carpal tunnel syndrome on both sides G56.03
[2024-09-14 10:38] VITALS: BMI 29.0
--- OUTSIDE RECORDS SUMMARY | 2024-09-14 10:57 | XMS_ITS | Encounter Summary ---
Author Organization [employer] Address [address] [place] [address] Care Team Providers Care Authorization Manager Name Role Phone Mackenzie Estrada MD Primary Care Provider [phone] Encounter Details Date Type Department Care Team (Late st Contact Info) Description 09/11/2024 9:45 AM EST Office Visit [facility] [address] [place] [address] Sisi Kennedy FNP [address] [place], [place] [phone] Rheumatoid arthritis involving multiple sites with positive rheumatoid factor (CMS/HCC) (Primary Dx); Long-term current use of opiate analgesic Social History Tobacco Use Types Packs/Day Years [...] the past 12 months, has t he [employer], gas, oil or water INTERNET BUSINESS TRADER threatened to shut off services in your home? No 05/15/2023 Depression Answer Date Recorded Patient Health Questionnaire-2 Score 2 04/30/2024 Internet Access Answer Date Recorded Internet Access Q1 Yes 09/10/2024 Internet Access Q2 Not on file 09/10/2024 Comments Unknown Sex and Gender Information Value Date Recorded Sex Assigned at Female 05/31/2022 10:18 AM EDT Legal Sex Female 10:18 AM EDT Gender Identity Female 05/31/2022 10:18 AM EDT Sexual Orientation Straight 05/31/2022 10 :18 AM EDT documented as of this encounter Progress Notes * Sisi Kennedy, UNION ORGANIZER - 09/11/2024 9:45 AM EST Subjective: Ginette Lacy is a 49 y.o. female w/ PMH rheumatoid arthritis, lumbosacral stenosis, DVT, GERD, Hodgkin lymphoma, migraines, and chronic low back pain, who presents to the office for - Chronic Pain Clinic Group visits. Initial Group visit: 12/13/23 Group Visit Number: 5 Last PCP visit: 04/30/24, Dr. Estrada Group Confidentiality signed: 12/13/23 Group Topic: Vivi - Recently following with [facility] Ortho for nodules on elbows - right olecranon soft tissue mass. Continues with pain related to RA, reports has been worsening recently. Encouraged to schedule follow up with Rheumatology (missed last appt d/t andres). Chronic Pain History: Associated Diagnosis: Rheumatoid Arthritis Following with [facility] Rheumatology - Dr. Castro Per PCP Note: [...] normal. Problem List Items Addressed This Visit Other Rheumatoid arthritis involving multiple sites ([facility]) - Primary Overview - Following with [facility] Rheumatoloy Current Assessment & Plan -Good engagement and participation with Group Medical Visit model -Encouraged multifactorial approach to pain control including pharm and non- pharm modalities -UTOX and Pill count as expected Long-term current use of opiate analgesic Overview Medication: Percocet 7.5/325mg TID PRN Indication: Rheumatoid arthritis Last PREKINDERGARTEN TEACHER Agreement: 06/12/24 Tier: II (Q3 months visits), Dr. Estrada 08/15/24 Current Assessment & Plan Timeline: - 09/11/24: Group visit, utox/pill count wnl Relevant Orders POCT GALLO-14 Urine Drug Screen (Completed) Follow up: 1-3 months for Group Chronic Pain Clinic. Follow up as scheduled with PCP, sooner as needed. * Coral Somers RN - 09/11/2024 9:45 AM EST .PREKINDERGARTEN TEACHER research and insights executive: PDMP reviewed today. Last fill date: 08/23/24 (Percocet 7.5-325mg tid PRN) count was (26), anticipated (26) to be remaining. BZO from an outside provider. .UTOX completed. Positive for (OXY, BZO, THC), Negative for AMP, BAR, BUP, ANKUSH, FTY, MDMA, MET, MOP, MTD, PCP, TCA,. UTOX as expected. documented in this encounter Miscellaneous Notes * Assessment & Plan Note - FARHEEN Ng - 09/11/2024 5:03 PM ESTAssociated Problem(s): Long-term current use of opiate analgesic Timeline: - 09/11/24: Group visit, utox/pill count wnl * Assessment & Plan Note - FARHEEN Ng - 09/11/2024 5:02 PM ESTAssociated Problem(s): Rheumatoid arthritis involving multiple sites ([facility]) -Good engagement and participation with Group Medical Visit model -Encouraged multifactorial approach to pain control including pharm and non- pharm modalities -UTOX and Pill count as expected documented in this encounter Plan of Treatment Upcoming Encounters Date Type Department Care Team (Late st Contact Info) Description 09/24/2024 3:15 PM EST Office Visit [facility] [address] [place] [address] Mackenzie Estrada MD [address] [place] [address] 10/01/2024 10:00 AM EST Office Visit [facility] [address] [place] [address] Libra Linder, OD [address] [place] [address] 11/06/2024 9:45 AM EDT Office Visit [facility] [address] [place] [address] documented as of this encounter Goals Goal Patient Goal Type Associated Problems Recent Progress Patient-Stated? Author Quit using tobacco (cigarettes, smokeless, etc) Tobacco Use No Corey Lin PharmD documented as of this encounter Procedures Procedure Name Priority Date/Time Associated Diagnosis Comments POCT GALLO-14 URINE DRUG SCREEN Routine 09/11/2024 2:01 PM EST Long-term current use of opiate analgesic documented in this encounter Results * POCT GALLO-14 Urine Drug Screen (09/11/2024 2:01 PM EST) THC Positive Benzodiazepines Screen, Urine Positive Oxycodone Screen, Urine Positive Urine Urine specimen obtained by clean catch procedure / Unknown 09/11/2024 2:01 PM EST Narrative Coral Somers RN - 09/11/2024 2:01 PM EST .UTOX cup Lot#[id number] Exp. 04/25/26 Internal Pass Control Sisi Kennedy UNION ORGANIZER POINT OF CARE TEST ENTER/EDIT ORDERABLES Final Result documented in this encounter Visit Diagnoses Diagnosis Rheumatoid arthritis involving multiple sites with positive rheumatoid factor ([facility])- Primary Long-term current use of opiate analgesic Encounter for long-term (current) use of other medications documented in this encounter Additional Health Concerns Assessment Noted Time PHQ-9 Depression Total Score: 2 04/30/20 24 10:41 AM EDT documented as of this encounter Care Teams Authorization Manager Relationship Specialty Start Date End Date Mackenzie Estrada MD [address] [place] [address] PCP - General Family Medicine 07/10/20 documented as of this encounter
--- OUTSIDE RECORDS SUMMARY | 2024-09-14 10:57 | XMS_ITS | Encounter Summary ---
Author Organization [employer] Address [address] [place] [address] Care Team Providers Care Project Management Analyst Name Role Phone Mackenzie Estrada MD Primary Care Provider [phone] Encounter Details Date Type Department Care Team (Latest Contact Info) Description 09/11/2024 Travel Social History Tobacco Use Types Packs/Day [...] Description 09/24/2024 3:15 PM EST Office Visit [facility] [address] [place] [address] Mackenzie Estrada MD [address] [place] [address] 10/01/2024 10:00 AM EST Office Visit [facility] [address] [place] [address] Kailash, Libra, OD [address] [place] [address] 11/06/2024 9:45 AM EDT Office Visit [facility] [address] [place] [address] documented as of this encounter Goals Goal Patient Goal Type Associated Problems Recent Progress Patient-Stated? Author Quit using tobacco (cigarettes, smokeless, etc) Tobacco Use Corey Cornell, Bailey documented as of this encounter Visit Diagnoses Not on filedocumented in this encounter Additional Health Concerns Assessment Noted Time PHQ-9 Depression Total Score: 2 04/30/20 24 10:41 AM EDT documented as of this encounter Care Teams Project Management Analyst Relationship Specialty Start Date End Date Mackenzie Estrada MD [address] [place] [address] PCP - General Family Medicine 07/10/20 documented as of this encounter
--- OUTSIDE RECORDS SUMMARY | 2024-09-14 10:57 | XMS_ITS | Encounter Summary ---
Author Organization [employer] Address [address] [place] [address] Care Team Providers Care Puller Through Name Role Phone Mackenzie Estrada MD Primary Care Provider [phone] Encounter Details Date Type Department Care Team (Late st Contact Info) Description 08/14/2024 9:45 AM EST Office Visit [facility] [address] [place] [address] Sisi Kennedy FNP [address] [place], [place] [phone] Long-term current use of opiate analgesic (Primary [...] the past 12 months, has t he [employer], gas, oil or water [employer] threatened to shut off services in your [...] this encounter Progress Notes * Sisi Kennedy, CLINICAL STUDY MANAGER - 08/14/2024 9:45 AM EST Subjective: Ginette [...] History: Associated Diagnosis: Rheumatoid Arthritis [place] [facility] [place] - Dr. Castro Per PCP [...] involving right hand with positive rheumatoid factor ([facility]) Overview - Following with [facility] Rheum: Dr. Castro - [facility] request for 10-in-1 pillow on 08/14/24 Long-term current use of opiate analgesic - Primary Overview Medication: Percocet 7.5/325mg TID PRN Indication: Rheumatoid arthritis Last BUSHWALKING GUIDE Agreement: 06/12/24 Current Assessment & Plan -Good [...] Somers RN - 08/14/2024 9:45 AM EST .BUSHWALKING GUIDE tuckpointer: PDMP reviewed today. Last fill date: 07/26/24 [...] Description 09/24/2024 3:15 PM EST Office Visit [facility] [address] [place] [address] Mackenzie Estrada MD [address] [place] [address] 10/01/2024 10:00 AM EST Office Visit [facility] [address] [place] [address] Libra Linder, OD [address] [place] [address] 11/06/2024 9:45 AM EDT Office Visit [facility] [address] [place] [address] documented as of this encounter Goals Goal [...] Unknown 08/14/2024 1:47 PM EST Sisi Kennedy CLINICAL STUDY MANAGER POINT OF CARE TEST ENTER/EDIT ORDERABLES Final Result documented in this encounter Visit Diagnoses Diagnosis Long-term current use of opiate analgesic- Primary Encounter for long-term (current) use of other medications 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 (CMS/HCC) Inflammatory arthritis Unspecified inflammatory polyarthropathy documented in this encounter Additional Health Concerns Assessment Noted Time PHQ-9 Depression Total Score: 2 04/30/20 24 10:41 AM EDT documented as of this encounter Care Teams Puller Through Relationship Specialty Start Date End Date Mackenzie Estrada MD [address] [place] [address] PCP - General Family Medicine 07/10/20 documented as of this encounter
--- OUTSIDE RECORDS SUMMARY | 2024-09-14 10:58 | XMS_ITS | Encounter Summary ---
Author Organization [employer] Address [address] [place] [address] Care Team Providers Care Manager French Name Role Phone Mackenzie Estrada MD Primary Care Provider [phone] Encounter Details Date Type Department Care Team (Late st Contact Info) Description 10/03/2023 Orders Only [facility] [address] [place], [place] [phone] Mackenzie Estrada MD [address] [place], [place] [phone] Bacterial vaginosis (Primary Dx) Social History Tobacco [...] Description 09/24/2024 3:15 PM EST Office Visit [facility] [address] [place] [address] Mackenzie Estrada MD [address] [place] [address] 10/01/2024 10:00 AM EST Office Visit [facility] [address] [place] [address] Kailash, Libra, OD [address] [place] [address] 11/06/2024 9:45 AM EDT Office Visit [facility] [address] [place] [address] documented as of this encounter Goals Goal Patient Goal Type Associated Problems Recent Progress Patient-Stated? Author Quit using tobacco (cigarettes, smokeless, etc) Tobacco Use No Corey Lin, Bailey documented as of this encounter Visit Diagnoses Diagnosis Bacterial vaginosis- Primary Unspecified vaginitis and vulvovaginitis documented in this encounter Care Teams Manager French Relationship Specialty Start Date End Date Mackenzie Estrada MD [address] [place] [address] PCP - General Family Medicine 07/10/20 documented as of this encounter
--- OUTSIDE RECORDS SUMMARY | 2024-09-14 10:58 | XMS_ITS | Clinical Summary ---
Author Organization [facility] Address [address] [place] [address] Care Team Providers Care Paper Making Machine Operator Name Role Phone Sanjay Cruz MD Primary Care Provi [facility] Surgical History Surgery Date Site/Laterality Comments OTHER SURGICAL HISTORY 05/12/2020 Right PROCEDURE: HI BX/EXC LYMPH NODE OPEN SUPERFICIAL; COMMENT: Axillary Lymph Node biopsy- Benign Lymphoid Tissue OTHER SURGICAL HISTORY 12/19/2019 Right PROCEDURE: HI BX/EXC LYMPH NODE NEEDLE SUPERFICIAL; COMMENT: Axillary Lymph node -results were non daignostic Medical History Medical History Date Comments Anxiety DX:Anxiety Migraine DX:Migraine History of DVT (deep vein thrombosis) 05/23/2020 DX:History of DVT (deep vein thrombosis); COMMENT: 01/2005 Right 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 buttermaker helper 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 of anticoagulant 0 DX:buttermaker helper current use of anticoagulant Acute deep vein [...] Recorded Sex Assigned at Not on file Legal Sex Female 8:51 AM EST Gender Identity Not on file Sexual Orientation Not on file Obstetrics History Plan of Treatment Health Maintenance Due Date Last Done Comments Breast Cancer Screening 1976 DTaP,Tdap,and Td Vaccines (1 - Tdap) 1995 Hepatitis B Vaccines (1 of 3 - 19+ 3-dose series) 1995 Cervical Cancer Screening: P ap Smear 1997 COVID-19 Vaccine ( - 2023-2 5 season) 2024 Influenza Vaccine (#1) 2024 [...] patient's age to complete this topic Meningococcal B Vacine Aged Out No lo nger eligible based on patient's age to complete [...] age to complete this topic Care Teams Paper Making Machine Operator Relationship Specialty Start Date End Date Sanjay Cruz MD [address] [place] [address] [phone] PCP - General Internal Medicine 04/09/20
--- OUTSIDE RECORDS SUMMARY | 2024-09-14 10:58 | XMS_ITS | Encounter Summary ---
Author Organization [employer] Address [address] 7t [place] [address] Care Team Providers Care Mold Making Supervisor Name Role Phone Mackenzie Estrada MD Primary Care Provider [phone] Reason for Visit * Reason Onset Date Comments Appointment Request 08/16/2024 Encounter Details Date Type Department Care Team ([facility] Contact Info) Description 08/16/2024 Telephone [facility] MEDICINE [address] [place], [place] [phone] Hanny Lacy [place] Appointment Request Social History [...] 09/24/2024 3:15 PM EST Office Visit [facility] [address] [place] [address] Mackenzie Estrada MD 230 [place] [address] 10/01/2024 10:00 AM EST Office Visit [facility] OPTOMETRY [address] [place] [address] Libra Linder OD 230 [place] [address] 11/06/2024 9:45 AM EDT Office Visit [facility] MED[facility] [address] [place] [address] documented as of this encounter Goals Goal [...] documented as of this encounter Care Teams Mold Making Supervisor Relationship Specialty Start Date End Date Mackenzie Estrada MD [address] [place] [address] PCP - General Family Medicine 07/10/20 documented as of this encounter
--- OUTSIDE RECORDS SUMMARY | 2024-09-14 10:58 | XMS_ITS | Encounter Summary ---
Author Organization [employer] Address [address] [facility] 7t [place] [address] Care Team Providers Care Sash Maker Name Role Phone Mackenzie Estrada MD Primary Care Provider [phone] Encounter Details Date Type Department Care Team (Late Contact Info) Description 03/04/2023 Orders Only [facility] [address] [place], [place] [phone] Kat Yo MD 230 [place], [place] [phone] Social History Tobacco Use Types Packs/Day Years [...] Department Care Team (Late Contact Info) Description 09/24/2024 3:15 PM EST Office Visit [facility] [address] [place] [address] Mackenzie Estrada MD 230 [place] [address] 10/01/2024 10:00 AM EST Office Visit [facility] OPTOMETRY [address] [place], [place] [phone] Libra Linder, OD 230 [place] [address] 11/06/2024 9:45 AM EDT Office Visit [facility] [address] [place] [address] documented as of this encounter Visit Diagnoses Not on filedocumented in this encounter Care Teams Sash Maker Relationship Specialty Start Date End Date Mackenzie Estrada MD [address] [place] [address] PCP - General Family Medicine 07/10/20 documented as of this encounter
--- OUTSIDE RECORDS SUMMARY | 2024-09-14 10:58 | XMS_ITS | Encounter Summary ---
Author Organization [employer] Address 75 [facility] 7t [place] [address] Care Team Providers Care Tube Making Machine Operator Name Role Phone Mackenzie Estrada MD Primary Care Provider [phone] Reason for Visit * Reason Comments Care Coordination CHW outreach for SDO H PT-1 and food needs-referral completed Encounter Details Date Type Department Care Team (Latest Contact Info) Description 09/10/2024 Patient Outreach [facility] MEDICINE 230 [place] [address] Mackenzie Estrada MD 230 [place] [address] Care Coordination (CHW outreach for SDOH PT-1 and food needs-referral completed /) Social History Tobacco Use Types Packs/Day Years [...] as of this encounter Progress Notes * Erasto Shafer - 09/10/2024 9:53 AM EST CHW Erasto Shafer, placed outbound call to patient for assistance with SDOH as a referral was received by the provider. Patient's name and were confirmed. Patient screened positive for the following SDOH transportation & food insecurities. CHW requested PT-1 plus referred family to B pantries in the local area. Patient agree to follow up with plan. Patient educated on extended clinic hours on Mondays through Wednesdays, and Walk-In Urgent Care Located in [facility]. Patient provided with after-hours line for [facility], , which offer night time triage service and option to transfer to senior safety management consultant provider if needed. documented in this encounter Plan of Treatment Upcoming Encounters Date Type Department Care Team (Late st Contact Info) Description 09/24/2024 3:15 PM EST Office Visit [facility] [address] [place] [address] Mackenzie Estrada MD [address] [place] [address] 10/01/2024 10:00 AM EST Office Visit [facility] OPTOMETRY [address] [place] [address] Kailash, Libra, OD 230 [place] [address] 11/06/2024 9:45 AM EDT Office Visit [facility] MED[facility]INE [address] [place] [address] documented as of this encounter Goals Goal Patient Goal Type Associated Problems Recent Progress Patient-Stated? Author Quit using tobacco (cigarettes, smokeless, etc) Tobacco Use Corey Cornell, PharmD documented as of this encounter Visit Diagnoses Not on filedocumented in this encounter Additional Health Concerns Assessment Noted Time PHQ-9 Depression Total Score: 2 04/30/20 24 10:41 AM EDT documented as of this encounter Care Teams Tube Making Machine Operator Relationship Specialty Start Date End Date Mackenzie Estrada MD [address] [place] [address] [phone] PCP - General Family Medicine 07/10/20 documented as of this encounter
--- OUTSIDE RECORDS SUMMARY | 2024-09-14 10:58 | XMS_ITS | Encounter Summary ---
Author Organization [facility] Address [address] [facility] 7t [place] [address] Care Team Providers Care Concrete Fence Builder Name Role Phone Mackenzie Estrada MD Primary Care Provider [phone] Reason for Visit * Reason Comments Med Refill Encounter Details Date Type Department Care Team ([facility] st Contact Info) Description 02/08/2023 Refill [facility] MEDICINE [address] [place], [place] [phone] Mackenzie Estrada MD [address] [place] [address] Pain in both hands Social History Tobacco [...] Description 09/24/2024 3:15 PM EST Office Visit [facility] MEDICINE [address] [place] [address] Mackenzie Estrada MD [address] [place] [address] 10/01/2024 10:00 AM EST Office Visit [facility] OPTOMETRY [address] [place] [address] Kailash, Libra, OD 230 [place] [address] 11/06/2024 9:45 AM EDT Office Visit [facility] MEDICINE 230 [place] [address] documented as of this encounter Visit Diagnoses Diagnosis Pain in both hands documented in this encounter Care Teams Concrete Fence Builder Relationship Specialty Start Date End Date Mackenzie Estrada MD [address] [place] [address] PCP - General Family Medicine 07/10/20 documented as of this encounter
--- OUTSIDE RECORDS SUMMARY | 2024-09-14 10:58 | XMS_ITS | Encounter Summary ---
Author Organization [employer] [facility] Address [address] [facility] 7t [place] [address] Care Team Providers Care Instrument Technician Apprentice Name Role Phone Mackenzie Estrada MD Primary Care Provider [phone] Reason for Visit * Reason Comments Med Refill Encounter Details Date Type Department Care Team ([facility] Contact Info) Description 12/10/2022 Refill [facility] MEDICINE [address] [place] [address] [phone] Mackenzie Estrada MD 230 [place], [place] [phone] Pain in both hands Social History Tobacco [...] Upcoming Encounters Date Type Department Care Team ([facility] Contact Info) Description 09/24/2024 3:15 PM EST Office Visit [facility] MEDICINE [address] [place] [address] [phone] Mackenzie Estrada MD 230 [place], [place] [phone] 10/01/2024 10:00 AM EST Office Visit [facility] OPTOMETRY [address] [place] [address] Libra Linder, OD 230 [place] [address] 11/06/2024 9:45 AM EDT Office Visit [facility] MEDICINE 230 [place] [address] documented as of this encounter Visit Diagnoses Diagnosis Pain in both hands documented in this encounter Care Teams Instrument Technician Apprentice Relationship Specialty Start Date End Date Mackenzie Estrada MD 230 [place], [place] [phone] PCP - General Family Medicine 07/10/20 documented as of this encounter
--- OUTSIDE RECORDS SUMMARY | 2024-09-14 10:58 | XMS_ITS | Encounter Summary ---
Author Organization [employer] Address [address] [address] 7t [place] [address] Care Team Providers Care Bullard Operator Name Role Phone Mackenzie Estrada MD Primary Care Provider [phone] Encounter Details Date Type Department Care Team (Late st Contact Info) Description 12/13/2023 Orders Only [facility] MEDICINE 230 [place], [place] [phone] Mackenzie Estrada MD 230 [place], [place] [phone] Pain in both hands Social History Tobacco [...] Description 09/24/2024 3:15 PM EST Office Visit [facility] MEDICINE [address] [place] [address] Mackenzie Estrada MD 230 [place] [address] 10/01/2024 10:00 AM EST Office Visit [facility] OPTOMETRY [address] [place] [address] Libra Linder, OD 230 [place] [address] 11/06/2024 9:45 AM EDT Office Visit [facility] MEDICINE [address] [place] [address] documented as of this encounter Goals Goal Patient Goal Type Associated Problems Recent Progress Patient-Stated? Author Quit using tobacco (cigarettes, smokeless, etc) Tobacco Use No Corey Lin, PharmD documented as of this encounter Visit Diagnoses Diagnosis Pain in both hands documented in this encounter Care Teams Bullard Operator Relationship Specialty Start Date End Date Mackenzie Estrada MD [address] [place] [address] [phone] PCP - General Family Medicine 07/10/20 documented as of this encounter
--- OUTSIDE RECORDS SUMMARY | 2024-09-14 10:58 | XMS_ITS | Encounter Summary ---
Author Organization [facility] [facility] Address [address] [facility] 7t [place] [address] Care Team Providers Care Road Roller Operator Name Role Phone Mackenzie Estrada MD Primary Care Provider [phone] Reason for Referral * Imaging (Routine) - Closed Specialty Diagnoses / Procedures Referred By Contac t Referred To Contact Radiology Diagnoses Abnormal ultrasound of pelvis Procedures MR Pelvis w/ and w/o Contrast Mackenzie Estrada MD 230 [place] [address] Phone: tel: fax: [address] Phone: tel: fax: Referral ID Status Reason Start Date Expiration Date Visits Re quested Visits Authorized [id number] Closed 10/31/2023 10/30/2024 1 1 Encounter Details Date Type Department Care Team (Late st Contact Info) Description 10/31/2023 Orders Only [facility] MED[facility]INE [address] [place], [place] [phone] Mackenzie Estrada MD 230 [place], [place] [phone] Abnormal ultrasound of pelvis (Primary Dx) Social [...] which I need to talk to her molder sweep about. Thank you! documented in this encounter Plan of Treatment Upcoming Encounters Date Type Department Care Team (Late st Contact Info) Description 09/24/2024 3:15 PM EST Office Visit [facility] [address] [facility] [place] [address] Mackenzie Estrada MD 230 [place] [address] 10/01/2024 10:00 AM EST Office Visit [facility] OPTOMETRY [address] [place] [address] Kailash, Libra, OD 230 [place] [address] 11/06/2024 9:45 AM EDT Office Visit [facility] MED[facility]INE [address] [place] [address] documented as of this encounter Goals Goal [...] EDT Narrative 12/07/2023 9:11 AM EDT ? [facility] ?[address] ?[place] [address] ? Magnetic Resonance Report ? Signed ? Patient: Ovidio Lacy,Ginette ?MR ?? #: [id number] ? : 1975 ?Acct:[id number] ? Age/Sex: 48 / F ?ADM Date: 04/26/24 ? Loc: HO.MRI ? Attending : Mackenzie Estrada MD ? Ordering Physician: Mackenzie Estrada ?? Date of Service: 11/25/23 ?? Procedure(s): MR pelvis wo/w con ?? Accession Number(s): [id number] ? cc: Mackenzie Estrada ? EXAMINATION: ?? [...] 7.8 x 3.6 ?? x 4.3 cm (hcnrsf-sy-qjjonw x AP x transverse dimension). The junctional [...] by Scott Haskins MD in OV> ? 12/07/23906 ? DD/ 1505 ? TD/TT: ? Lecturer In Computer Science: PD ? Procedure Note Lorin, Image - 12/07/2023 [place] [address] Magnetic Resonance Report Signed Patient: Ginette Arceo #: [id number] : 1975Acct:[id number] Age/Sex: 48 / FADM Date: 11/25/23 Loc: .MRI Attending Dr: Mackenzie Estrada MD Ordering Physician: Mackenzie Estrada Date of Service: 11/25/23 Procedure(s): MR pelvis wo/w con Accession Number(s): [id number] cc: Mackenzie Estrada EXAMINATION: MR PELVIS WITHOUT [...] measures 7.8 x 3.6 x 4.3 cm (kxflpm-ax-szxesj x AP x transverse dimension). The junctional [...] in OV> 12/07/23 0907 DD/ 1505 TD/TT: Lecturer In Computer Science: PD Mackenzie Estrada MD IM MRI PROCEDURES Final Resul t documented in this encounter Visit Diagnoses Diagnosis Abnormal ultrasound of pelvis- Primary documented in this encounter Care Teams Road Roller Operator Relationship Specialty Start Date End Date Mackenzie Estrada MD [address] [place] [address] PCP - General Family Medicine 07/10/20 documented as of this encounter
--- OUTSIDE RECORDS SUMMARY | 2024-09-14 10:58 | XMS_ITS | Encounter Summary ---
Author Organization [employer] Address [address] [facility] [address] 7t [place] [address] Care Team Providers Care Emergency Department Technician Name Role Phone Mackenzie Estrada MD Primary Care Provider [phone] Reason for Visit * Reason Comments Med Refill Encounter Details Date Type Department Care Team ([facility] Contact Info) Description 09/07/2024 Refill [facility] MEDICINE 230 [place], [place] [phone] Mackenzie Estrada MD 230 [place], [place] [phone] Social History Tobacco Use Types Packs/Day Years [...] Description 09/24/2024 3:15 PM EST Office Visit [facility] MEDICINE 230 [place] [address] Mackenzie Estrada MD [address] [place] [address] 10/01/2024 10:00 AM EST Office Visit [facility] OPTOMETRY [address] [place] [address] Kailash, Libra, OD 230 [place] [address] 11/06/2024 9:45 AM EDT Office Visit [facility] MEDICINE 230 [place] [address] documented as of this encounter Goals Goal Patient Goal Type Associated Problems Recent Progress Patient-Stated? Author Quit using tobacco (cigarettes, smokeless, etc) Tobacco Use No Corey Lin, PharmD documented as of this encounter Visit Diagnoses Not on filedocumented in this encounter Additional Health Concerns Assessment Noted Time PHQ-9 Depression Total Score: 2 04/30/20 10:41 AM EDT documented as of this encounter Care Teams Emergency Department Technician Relationship Specialty Start Date End Date Mackenzie Estrada MD 230 [place] [address] PCP - General Family Medicine 07/10/20 documented as of this encounter
--- OUTSIDE RECORDS SUMMARY | 2024-09-14 10:58 | XMS_ITS | Encounter Summary ---
Author Organization [employer] Address [address] 7t [place] [address] Care Team Providers Care Supervisor Dimension Warehouse Name Role Phone Mackenzie Estrada MD Primary Care Provider [phone] Reason for Visit * Reason Onset Date Comments Durable Medical Equipment 08/15/2024 10 In 1 pillow Encounter Details Date Type Department Care Team ([facility] st Contact Info) Description 08/15/2024 Telephone [facility] [address] [place], [place] [phone] Mackenzie Estrada MD 230 [place] [address] Durable Medical Equipment (10 In 1 pillow [...] the past 12 months, has t he [employer], gas, oil or water [employer] threatened to shut off services in your [...] Description 09/24/2024 3:15 PM EST Office Visit [facility] [address] [place] [address] Mackenzie Estrada MD 230 [place] [address] 10/01/2024 10:00 AM EST Office Visit [facility] OPTOMETRY [address] [place] [address] Libra Linder OD 230 [place] [address] 11/06/2024 9:45 AM EDT Office Visit [facility] 230 [place] [address] documented as of this encounter Goals Goal Patient Goal Type Associated Problems Recent Progress Patient-Stated? Author Quit using tobacco (cigarettes, smokeless, etc) Tobacco Use Corey Cornell, KelechiD documented as of this encounter Visit Diagnoses Not on filedocumented in this encounter Additional Health Concerns Assessment Noted Time PHQ-9 Depression Total Score: 2 04/30/20 24 10:41 AM EDT documented as of this encounter Care Teams Supervisor Dimension Warehouse Relationship Specialty Start Date End Date Mackenzie Estrada MD [address] [place] [address] PCP - General Family Medicine 07/10/20 documented as of this encounter
--- OUTSIDE RECORDS SUMMARY | 2024-09-14 10:58 | XMS_ITS | Encounter Summary ---
Author Organization [employer] Address [address] [facility] [address] 7t [place] [address] Care Team Providers Care It Program Manager Name Role Phone Mackenzie Estrada MD Primary Care Provider [phone] Reason for Visit * Reason Comments Pre-visit Planning SDOH screening negat radha and tobacco screening negative Encounter Details Date Type Department Care Team ([facility] Contact Info) Description 09/10/2024 Patient Outreach [facility] MEDICINE 230 [place], [place] [phone] Mackenzie Estrada MD 230 [place], [place] [phone] Pre-visit Planning (SDOH screening negative and tobacco screening negative) Social History Tobacco Use Types Packs/Day Years [...] as of this encounter Progress Notes * Frances Livingston - 09/10/2024 9:15 AM EST CC Frances placed successful outbound call to patient for pre-visit planning. Patient name and confirmed. Patient confirms appt date and time, and has transportation arrangements. Biggest concern for appointment at this time is chronic pain requesting an increase in pain medication Appropriate screening completed in anticipation of appointment. Patient advised to bring to appointment a photo id and insurance card, SDCO positive. Patient looking for assistance with transportation Referral will be placed. documented in this encounter Plan of Treatment Upcoming Encounters Date Type Department Care Team (Late st Contact Info) Description 09/24/2024 3:15 PM EST Office Visit [facility] MEDICINE [address] [place] [address] Mackenzie Estrada MD 230 [place], [place] [phone] 10/01/2024 10:00 AM EST Office Visit [facility] OPTOMETRY [address] [place] [address] Libra Linder, OD 230 [place] [address] 11/06/2024 9:45 AM EDT Office Visit [facility] MEDICINE [address] [place] [address] documented as of this encounter Goals Goal [...] documented as of this encounter Care Teams It Program Manager Relationship Specialty Start Date End Date Mackenzie Estrada MD 230 [place] [address] PCP - General Family Medicine 07/10/20 documented as of this encounter
--- OUTSIDE RECORDS SUMMARY | 2024-09-14 10:58 | XMS_ITS | Encounter Summary ---
Author Organization [employer] Address [address] [facility] [address] 7t [place] [address] Care Team Providers Care Armhole Sewer Name Role Phone Mackenzie Estrada MD Primary Care Provider [phone] Reason for Visit * Reason Comments Med Refill Encounter Details Date Type Department Care Team ([facility] st Contact Info) Description 11/18/2023 Refill [facility] MEDICINE 230 [place], [place] [phone] Mackenzie Estrada MD 230 [place], [place] [phone] Pain in both hands Social History Tobacco [...] your housing situation today? I have mendoza prinec 05/15/[address] you li [...] Description 09/24/2024 3:15 PM EST Office Visit [facility] MEDICINE [address] [place] [address] Mackenzie Estrada MD 230 [place] [address] 10/01/2024 10:00 AM EST Office Visit [facility] OPTOMETRY [address] [place] [address] Kailash, Libra, OD 230 [place] [address] 11/06/2024 9:45 AM EDT Office Visit [facility] MEDICINE [address] [place] [address] documented as of this encounter Goals Goal Patient Goal Type Associated Problems Recent Progress Patient-Stated? Author Quit using tobacco (cigarettes, smokeless, etc) Tobacco Use No Corey Lin, KelechiD documented as of this encounter Visit Diagnoses Diagnosis Pain in both hands documented in this encounter Care Teams Armhole Sewer Relationship Specialty Start Date End Date Mackenzie Estrada MD [address] [place] [address] [phone] PCP - General Family Medicine 07/10/20 documented as of this encounter
--- OUTSIDE RECORDS SUMMARY | 2024-09-14 10:58 | XMS_ITS | Encounter Summary ---
Author Organization [employer] Address [address] [facility] [address] 7[address] [place] [address] Care Team Providers Care Panel Installer Name Role Phone Mackenzie Estrada MD Primary Care Provider [phone] Reason for Visit * Reason Comments Med Refill Encounter Details Date Type Department Care Team ([facility] Contact Info) Description 08/19/2024 Refill [facility] MEDICINE 230 [place], [place] [phone] Mackenzie Estrada MD 230 [place], [place] [phone] Social History Tobacco Use Types Packs/Day Years [...] Description 09/24/2024 3:15 PM EST Office Visit [facility] MEDICINE [address] [place] [address] Mackenzie Estrada MD 230 [place] [address] 10/01/2024 10:00 AM EST Office Visit [facility] OPTOMETRY [address] [place] [address] Kailash, Libra, OD 230 [place] [address] 11/06/2024 9:45 AM EDT Office Visit [facility] MEDICINE 230 [place] [address] documented as of this encounter Goals Goal Patient Goal Type Associated Problems Recent Progress Patient-Stated? Author Quit using tobacco (cigarettes, smokeless, etc) Tobacco Use No Corey Lin, PharmD documented as of this encounter Visit Diagnoses Not on filedocumented in this encounter Additional Health Concerns Assessment Noted Time PHQ-9 Depression Total Score: 2 04/30/20 10:41 AM EDT documented as of this encounter Care Teams Panel Installer Relationship Specialty Start Date End Date Mackenzie Estrada MD 230 [place] [address] PCP - General Family Medicine 07/10/20 documented as of this encounter
--- OUTSIDE RECORDS SUMMARY | 2024-09-14 10:58 | XMS_ITS | Encounter Summary ---
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 [...] the past 12 months, has t he [employer], gas, oil or water [employer] threatened to shut off services in your [...] 7.5-325 MG tablet To be sent to: [facility] - [place], [place] - [address] [place] [address] documented in this encounter Plan of Treatment Upcoming Encounters Date Type Department Care Team (Late st Contact Info) Description 09/24/2024 3:15 PM EST Office Visit [facility] [address] [place] [address] Mackenzie Estrada MD [address] [place] [address] 10/01/2024 10:00 AM EST Office Visit [facility] [address] [place] [address] Libra Linder, OD 230 [place] [address] 11/06/2024 9:45 AM EDT Office Visit [facility] [address] [place] [address] documented as of this encounter Goals Goal [...] documented as of this encounter Care Teams Board Certified Behavioral Analyst Relationship Specialty Start Date End Date Mackenzie Estrada MD [address] [place] [address] PCP - General Family Medicine 07/10/20 documented as of this encounter
--- OUTSIDE RECORDS SUMMARY | 2024-09-14 10:59 | XMS_ITS | Encounter Summary ---
Author Organization [employer] Address [address] [facility] [address] 7t [place] [address] Care Team Providers Care Senior Production Planner Name Role Phone Mackenzie Estrada MD Primary Care Provider Reason for Visit * Reason Comments Med Refill Encounter Details Date Type Department Care Team ([facility] Contact Info) Description 07/21/2023 Refill [facility] 230 [place], [place] [phone] Name, MD Mark [address] [place] [address] Pain in both hands Social History Tobacco [...] 09/24/2024 3:15 PM EST Office Visit [facility] [address] [place] [address] Mackenzie Estrada MD [address] [place] [address] 10/01/2024 10:00 AM EST Office Visit [facility] [address] [place] [address] Kailash, Libra, OD 230 [place] [address] 11/06/2024 9:45 AM EDT Office Visit [facility] [address] [place] [address] documented as of this encounter Goals Goal Patient Goal Type Associated Problems Recent Progress Patient-Stated? Author Quit using tobacco (cigarettes, smokeless, etc) Tobacco Use No Corey Lin, PharmD documented as of this encounter Visit Diagnoses Diagnosis Pain in both hands documented in this encounter Care Teams Senior Production Planner Relationship Specialty Start Date End Date Mackenzie Estrada MD [address] [place] [address] [phone] PCP - General Family Medicine 07/10/20 documented as of this encounter
--- OUTSIDE RECORDS SUMMARY | 2024-09-14 10:59 | XMS_ITS | Clinical Summary ---
Author Organization [facility] Address [address] [place] [address] Support Name Relationship Address Phone Brayden Hernandez Emergency Contact [address] [place] [id number] Care Team Providers Care Bending Machine Set Up Operator Name Role Phone Abdullahi Lizarraga MD Primary Care Provider [phone] Allergies Active Allergy Reactions Criticality Noted Date [...] age to complete this topic Care Teams Bending Machine Set Up Operator Relationship Specialty Start Date End Date Abdullahi Lizarraga MD [address] [place] [address] PCP - General Nephrology 03/10/18
--- OUTSIDE RECORDS SUMMARY | 2024-09-14 10:59 | XMS_ITS | Encounter Summary ---
Author Organization [employer] Address [address] [facility] [address] 7[address] [place] [address] Care Team Providers Care Snagger Name Role Phone Mackenzie Estrada MD Primary Care Provider [phone] Reason for Visit * Reason Comments Med Refill Encounter Details Date Type Department Care Team ([facility] Contact Info) Description 06/03/2023 Refill [facility] [address] [place], [place] [phone] Mackenzie Estrada MD [address] [place], [place] [phone] Pain in both hands Social History Tobacco [...] 3:15 PM EST Office Visit [facility] [address] [place] [address] Macknezie Estrada MD 230 [place] [address] 10/01/2024 10:00 AM EST Office Visit [facility] [address] [place] [address] Kailash, Libra, OD 230 [place] [address] 11/06/2024 9:45 AM EDT Office Visit [facility] [address] [place] [address] documented as of this encounter Goals Goal Patient Goal Type Associated Problems Recent Progress Patient-Stated? Author Quit using tobacco (cigarettes, smokeless, etc) Tobacco Use No Corey Lin, KelechiD documented as of this encounter Visit Diagnoses Diagnosis Pain in both hands documented in this encounter Care Teams Snagger Relationship Specialty Start Date End Date Mackenzie Estrada MD [address] [place] [address] [phone] PCP - General Family Medicine 07/10/20 documented as of this encounter
--- OUTSIDE RECORDS SUMMARY | 2024-09-14 10:59 | XMS_ITS | Encounter Summary ---
Author Organization [employer] Address [address] [facility] [address] 7[address] [place] [address] Care Team Providers Care Transportation Specialist Name Role Phone Mackenzie Estrada MD Primary Care Provider [phone] Reason for Visit * Reason Comments Med Refill Encounter Details Date Type Department Care Team ([facility] Contact Info) Description 06/01/2023 Refill [facility] 230 [place], [place] [phone] Mackenzie Estrada MD 230 [place], [place] [phone] Pain in both hands Social History Tobacco [...] Description 09/24/2024 3:15 PM EST Office Visit [facility] [address] [place] [address] Mackenzie Estrada MD 230 [place] [address] 10/01/2024 10:00 AM EST Office Visit [facility] [address] [place] [address] Kailash, Libra, OD 230 [place] [address] 11/06/2024 9:45 AM EDT Office Visit [facility] [address] [place] [address] documented as of this encounter Goals Goal Patient Goal Type Associated Problems Recent Progress Patient-Stated? Author Quit using tobacco (cigarettes, smokeless, etc) Tobacco Use No Corey Lin, KelechiD documented as of this encounter Visit Diagnoses Diagnosis Pain in both hands documented in this encounter Care Teams Transportation Specialist Relationship Specialty Start Date End Date Mackenzie Estrada MD [address] [place] [address] [phone] PCP - General Family Medicine 07/10/20 documented as of this encounter
--- OUTSIDE RECORDS SUMMARY | 2024-09-14 10:59 | XMS_ITS | Encounter Summary ---
Author Organization [employer] Address [address] [facility] [address] 7[address] [place] [address] Care Team Providers Care Loan Clerk Name Role Phone Mackenzie Estrada MD Primary Care Provider [phone] Reason for Visit * Reason Onset Date Comments Error 08/16/2023 Encounter Details Date Type Department Care Team ([facility] Contact Info) Description 08/16/2023 Telephone [facility] [address] [place], [place] [phone] Mackenzie Estrada MD [address] [place], [place] [phone] Error Social History Tobacco Use Types Packs/Day [...] Description 09/24/2024 3:15 PM EST Office Visit [facility] [address] [place] [address] Mackenzie Estrada MD [address] [place] [address] 10/01/2024 10:00 AM EST Office Visit [facility] [address] [place] [address] Kailash, Libra, OD 230 [place] [address] 11/06/2024 9:45 AM EDT Office Visit [facility] [address] [place] [address] documented as of this encounter Goals Goal Patient Goal Type Associated Problems Recent Progress Patient-Stated? Author Quit using tobacco (cigarettes, smokeless, etc) Tobacco Use No Corey Lin, KelechiD documented as of this encounter Visit Diagnoses Not on filedocumented in this encounter Care Teams Loan Clerk Relationship Specialty Start Date End Date Mackenzie Estrada MD [address] [place] [phone] PCP - General Family Medicine 07/10/20 documented as of this encounter
--- OUTSIDE RECORDS SUMMARY | 2024-09-14 10:59 | XMS_ITS | Encounter Summary ---
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 [...] the past 12 months, has t he [employer], gas, oil or water company threatened to [...] Description 09/24/2024 3:15 PM EST Office Visit [facility] [address] [place] [address] Mackenzie Estrada MD [address] [place] [address] 10/01/2024 10:00 AM EST Office Visit [facility] [address] [place] [address] Libra Linder, OD 230 [place] [address] 11/06/2024 9:45 AM EDT Office Visit [facility] [address] [place] [address] documented as of this encounter Goals Goal [...] documented as of this encounter Care Teams Archeology Professor Relationship Specialty Start Date End Date Mackenzie Estrada MD [address] [place] [address] PCP - General Family Medicine 07/10/20 documented as of this encounter
--- OUTSIDE RECORDS SUMMARY | 2024-09-14 10:59 | XMS_ITS | Encounter Summary ---
Author Organization [employer] Address [address] [facility] [address] 7t [place] [address] Care Team Providers Care Stopper Grinder Name Role Phone Mackenzie Estrada MD Primary Care Provider Reason for Visit * Reason Comments Med Refill Encounter Details Date Type Department Care Team ([facility] st Contact Info) Description 08/26/2023 Refill [facility] 230 [place] [address] Sisi Kennedy FNP [address] [place], [place] [phone] Viral upper respiratory tract infection Social History [...] Description 09/24/2024 3:15 PM EST Office Visit [facility] [address] [place] [address] Mackenzie Estrada MD [address] [place] [address] 10/01/2024 10:00 AM EST Office Visit [facility] [address] [place] [address] Kailash, Libra, OD 230 [place] [address] 11/06/2024 9:45 AM EDT Office Visit [facility] [address] [place] [address] documented as of this encounter Goals Goal Patient Goal Type Associated Problems Recent Progress Patient-Stated? Author Quit using tobacco (cigarettes, smokeless, etc) Tobacco Use No Corey Lin, KelechiD documented as of this encounter Visit Diagnoses Diagnosis Viral upper respiratory tract infection Acute upper respiratory infections of unspecified site documented in this encounter Care Teams Stopper Grinder Relationship Specialty Start Date End Date Mackenzie Estrada MD [address] [place] [phone] PCP - General Family Medicine 07/10/20 documented as of this encounter
--- OUTSIDE RECORDS SUMMARY | 2024-09-14 10:59 | XMS_ITS | Encounter Summary ---
Author Organization [employer] Address [address] [facility] [address] 7[address] [place] [address] Care Team Providers Care Insulation Cutter Name Role Phone Mackenzie Estrada MD Primary Care Provider [phone] Encounter Details Date Type Department Care Team (Late st Contact Info) Description 06/01/2023 Orders Only [facility] [address] [place], [place] [phone] Mackenzie Estrada MD [address] [place] [address] Encounter for smoking cessation counseling (Primary Dx) [...] Description 09/24/2024 3:15 PM EST Office Visit [facility] [address] [place] [address] Mackenzie Estrada MD [address] [place] [address] 10/01/2024 10:00 AM EST Office Visit [facility] [address] [place] [address] Kailash, Libra, OD [address] [place] [address] 11/06/2024 9:45 AM EDT Office Visit [facility] [address] [place] [address] documented as of this encounter Goals Goal Patient Goal Type Associated Problems Recent Progress Patient-Stated? Author Quit using tobacco (cigarettes, smokeless, etc) Tobacco Use No Corey Lin, PharmFrancia documented as of this encounter Visit Diagnoses Diagnosis Encounter for smoking cessation counseling- Primary documented in this encounter Care Teams Insulation Cutter Relationship Specialty Start Date End Date Mackenzie Estrada MD [address] [place] [phone] PCP - General Family Medicine 07/10/20 documented as of this encounter
--- OUTSIDE RECORDS SUMMARY | 2024-09-14 10:59 | XMS_ITS | Clinical Summary ---
Author Organization [employer] Address [address] [facility] [address] [place] [address] Care Team Providers Care Dog Bather Name Role Phone Mackenzie Estrada MD Primary Care Provider [phone] Allergies Active Allergy Reactions Criticality Noted Date Comments Senoia (Diagnostic) 05/23/2020 Senoia Oil Anaphylaxis High 07/19/2022 Morphine 06/02/2015 Other [...] 03/10/20 22 Active Sharps Container (GUARDIAN Sharps Forge Helper) misc 06/15/20 22 Active Ascorbic Acid (vitamin C) 500 MG tablet TAKE 2 TABLETS BY MOUTH ONCE DAILY IN THE MORNING 12/22/19 23 Active Vitamin D High Potency 25 MCG (1000 UT) capsule Take 25 mcg by mouth in the morning. 12/11/19 23 Active beta carotene (vitamin A) 3 MG (09325 UT) capsule Take by mouth in the [...] EVENING 180 tablet 3 10/03/19 24 Active docusate sodium (Colace) 100 MG capsule TAKE 1 CAPSULE BY MOUTH AT BEDTIME NEEDED 90 capsule 3 03/28/20 24 Active ursodiol (Sushil) 250 MG tablet Take 1 tablet (250 mg) by mouth 2 times daily. 60 tablet 11 04/10/20 24 025 Active methotrexate 2.5 MG tablet TAKE 10 TABLETS BY MOUTH EVERY WEEK 02/24/20 24 Active Umeclidinium [place] (Incruse Ellipta) 62.5 MCG/ACT aerosol powderIndicatio ns:Subacute cough INHALE 1 PUFF BY MOUTH EVERY DAY AT THE SAME TIME 1 each 11 04/23/20 24 Active FeroSul 325 (65 Fe) MG tablet TAKE 1 TABLET BY MOUTH EVERY MORNING 90 tablet 3 04/30/20 24 Active Eliquis 5 MG tablet TAKE 1 TABLET BY MOUTH TWICE DAILY IN THE MORNING AND IN THE EVENING 180 tablet 1 05/30/20 24 Active lidocaine-prilo елена (Emla) 2.5-2.5 % creamIndication [...] 911/seek medical attention if pain persists 05/29/20 24 Active atorvastatin (Lipitor) 80 MG tablet Take [...] 2024. 84 tablet 08/23/19 25 025 Active gabapentin (Neurontin) 400 MG capsule TAKE 1 CAPSULE BY MOUTH THREE TIMES DAILY IN THE MORNING, EVENING, AND BEDTIME (TAKE 1-2 CAPSULE (S) BY MOUTH THREE TIMES DAILY -EXTRA IN VIAL FOR NEEDED) 120 capsule 6 09/07/19 25 Active gabapentin (Neurontin) 400 MG capsule TAKE 1 CAPSULE BY MOUTH THREE TIMES DAILY IN THE MORNING, EVENING, AND BEDTIME (TAKE 1-2 CAPSULE (S) BY MOUTH THREE TIMES DAILY -EXTRA IN VIAL FOR NEEDED) 120 capsule 6 01/06/20 24 025 Discontinued oxyCODONE-aceta minophen (Percocet) 7.5-325 MG tabletIndicatio ns:Osteonecrosi [...] 7.5/325mg TID PRN Indication: Rheumatoid arthritis Last CHAIRMAN Agreement: 06/12/24 Tier: II (Q3 months visits), Dr. Estrada 08/15/24 Assessment & Plan (09/11/2024 5:03 PM EST): Timeline: - 09/11/24: Group visit, utox/pill count wnl Assessment & Plan (08/14/2024 4:38 PM EST): [...] factor 01/26/2024 Overview (08/14/2024): - [place] [facility] [place]: Dr. Castro Assessment & Plan (01/26/2024 [...] to go back to her previous dose, CHAIRMAN nurse informed about my plan, I instructed [...] not as effective -I spoke today with [facility] staff today ( Shahla) and confirmed they do have remdesivir which will be the best options for tx for this pt , ER at [facility] are expecting pt for evaluation. Also [...] week as per Rheumatology. 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 0 Personal history of Hodgkin lymphoma 05/09/2020 Axillary lymphadenopathy 05/09/2020 Acute deep vein thrombosis ( DVT) of brachial vein of right upper extremity 03/07/2020 Lymphadenopathy, generalized 03/07/2020 Migraine without status migrainosus, not intract able 12/06/2017 Paresthesia and pain of left extremity 8 Gastroesophageal reflux disease 06/03/2017 Rheumatoid arthritis involving multiple sites Overview (09/11/2024): - [place] [facility] [place]ol[place] Assessment & Plan (09/11/2024 5:02 PM EST): -Good engagement and participation with Group Medical Visit model -Encouraged multifactorial approach to pain control including pharm and non- pharm modalities -UTOX and Pill count as expected Assessment & Plan (07/03/2024 2:58 PM EST): [...] PM EDT): Primarily managed by [place]um at [facility] [place] Continue to take Oulimiant 2mg, Methotrexate 20mg [...] organization. Date Type Department Care Team Description 09/11/2024 9:45 AM EST Office Visit [facility] [address] [place] [phone] Sisi Kennedy FNP Rheumatoid arthritis involving multiple sites with positive rheumatoid factor ([facility]) (Primary Dx); Long-term current use of opiate analgesic 09/11/2024 Travel 09/10/2024 Patient Outreach [facility] [address] [place] [phone] Mackenzie Estrada MD Care Coordination (CHW outreach for SDOH PT-1 and food needs-referral completed /) 09/10/2024 Patient Outreach [facility] [address] [place] [phone] Mackenzie Estrada MD Pre-visit Planning (SDOH screening negative and tobacco screening negative) 09/07/2024 Refill [facility] [address] [place] [phone] Mackenzie Estrada MD 08/22/2024 Refill [facility] [address] [place] [phone] Mackenzie Estrada MD 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 ([facility]) 08/19/2024 Refill [facility] [address] [place] [phone] Mackenzie Estrada MD 08/16/2024 Telephone [facility] [address] [place] [phone] Hanny Lacy MA Appointment Request 08/15/2024 Telephone [facility] [address] [place] [address] Mackenzie Estrada MD Durable Medical Equipment (10 In 1 pillow ) 08/14/2024 9:45 AM EST Office Visit [facility] [address] [place] [phone] Sisi Kennedy FNP Long-term current use of opiate analgesic (Primary Dx); 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 ([facility]/HCC); Inflammatory arthritis 08/14/2024 Travel 07/27/2024 Orders Only GENERIC EXTERNAL DATA DEPARTMENT Provider, Generic External Data 07/26/[address] [address] Mackenzie Estrada MD 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 ([facility]/HCC) 07/20/2024 10:15 AM EST Office Visit [address] [address] Mark Yang MD Ear pain, bilateral (Primary Dx) 07/20/[address] [address] Mackenzie Estrada MD 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 ([facility]/HCC) 07/20/2024 Travel 07/20/[address] [address] Mackenzie Estrada MD 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 ([facility]/HCC) 07/20/[address] [address] Mackenzie Estrada MD Nurse Triage 07/12/2024 10:40 AM EST Office Visit [facility] [address] [place] [phone] Kat Yo MD Rheumatoid arthritis flare ([facility]/HCC) (Primary Dx); Right hip pain; Pain and swelling of left wrist; 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 (CMS/HCC); Inflammatory arthritis 07/12/2024 Telephone [facility] [address] [place] [address] Mackenzie Estrada MD Nurse Triage 07/12/2024 Orders Only [facility] External Provider, [facility] 07/09/2024 Patient Outreach [facility] [address] [place] [address] Mackenzie Estrada MD Transition Of Care (Tcm); Error (VOID this visit) 07/09/2024 Telephone [facility] [address] [place] [address] Mackenzie Estrada MD Error (VOID this visit) 07/09/2024 Patient Outreach [address] [address] Mackenzie Estrada MD Transition Of Care (Tcm) 07/08/2024 Orders Only GENERIC EXTERNAL DATA DEPARTMENT Provider, Generic External Data 07/03/2024 10:45 AM EST Office Visit [address] [address] Ebony Daigle MD NSTEMI (non-ST elevated myocardial infarction) ([facility]) (Primary Dx); Epicondylitis elbow, medial, left; Tobacco dependence; Depressive disorder; 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 ([facility]/HCC); Rheumatoid arthritis involving multiple sites with positive rheumatoid factor (CMS/HCC) 07/03/[address] [address] Mackenzie Estrada MD telephone call 07/03/2024 Travel 06/27/[address] [address] Liz Sommers, house designer 06/22/[address] [address] Mackenzie Estrada MD 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 ([facility]/HCC) 06/15/[address] [address] Yaya Bee, PharmD Appointment Request 06/15/[address] [address] Mackenzie Estrada MD Nurse Triage 06/14/2024 Patient Outreach [facility] [address] [place] [address] Mackenzie Estrada MD Transition Of Care (Tcm) (HDF- APPOINTMENT REMINDER ) from Last 3 Months Immunizations Name Administration [...] Description 09/24/2024 3:15 PM EST Office Visit [facility] [address] [place] [address] Mackenzie Estrada MD [address] [place] [address] 10/01/2024 10:00 AM EST Office Visit [facility] [address] [place] [address] Kailash, Libra, OD [address] [place] [address] 11/06/2024 9:45 AM EDT Office Visit [facility] [address] [place] [address] Health Maintenance Due Date Last Done Comments CT Colonography 1976 Dental Prophylaxis 1976 FIT DNA/Cologuard 1976 FIT 1975 FOBT 1975 Sigmoidoscopy 1976 Alcohol/Substance Use Screening 1988 Family Planning (PISQ) 1991 Zoster Vaccines (1 of 2) 1995 Hepatitis A Vaccines (2 of 2 - Risk 2-dose series) 02/25/2013 08/28/2012 Pneumococcal Vaccine: Pediatrics (0 to 5 Years) and At-Risk Patients (6 to 49) Years) (3 of 3 - PPSV23, PCV20 or PCV21) 05/10/2018 03/15/2018, 08/10/2006 Dental Oral Exam 07/30/2021 01/27/2021 Mammogram 10/10/2023 10/09/2021, 11/24/2018 Dental X-Ray: Full Mouth 01/29/2024 01/27/2021 COVID-19 Vaccine ( season) 2024 07/23/2021, 12/10/2020, 11/12/2020 Influenza Vaccine (#1) 2024 3, 05/13/2021, 07/05/2018, Additional history exists Dental X-Ray: Bitewings 01/20/2025 01/20/20 24, 01/27/2021, 04/19/2016 Depression Screening 04/30/2025 04/30/2024, 04/30/20 24 Tobacco Screening 07/20/2025 07/20/2024 SDOH Screening 09/10/2025 09/10/2024 DTaP/Tdap/Td Vaccines (2 - Td or Tdap) [...] smokeless, etc) Tobacco Use Corey Cornell, Bailey Procedures Procedure Name Priority Date/Time Associated Diagnosis Comments POCT GALLO-14 URINE DRUG SCREEN Routine 09/11/2024 2:01 PM EST Long-term current use of opiate analgesic POCT GALLO-14 URINE DRUG SCREEN Routine 08/14/2024 [...] TROPONIN I Routine 07/08/2024 5:40 AM EST HEPATITIS C ANTIBODY Routine 04/11/2024 10:26 [...] GENERIC Routine 10/09/2021 12: 05 PM EST INTRAORAL - COMPLETE SERIES OF RADIOGRAPHIC IMAGES Routine 01/27/2021 12:00 AM EDT COMPREHENSIVE ORAL EVALUATION - NEW OR ESTABLISHED PATIENT Routine 01/27/2021 12:00 AM EDT HM COLONOSCOPY Routine 10/28/2017 from Last 3 Months or Most Recently Relevant to Health Maintenance Results * POCT GALLO-14 Urine Drug Screen (09/11/2024 2:01 PM EST) Only the most recent of2 resultswithin the time period is included. THC Positive Benzodiazepines Screen, Urine Positive Oxycodone Screen, Urine Positive Urine Urine specimen obtained by clean catch procedure / Unknown 09/11/2024 2:01 PM EST Narrative Coral Somers RN - 09/11/2024 2:01 PM EST .UTOX cup Lot#[id number] Exp. 04/25/26 Internal Pass Control us Sisi Kennedy BRONC BUSTER POINT OF CARE TEST ENTER/EDIT ORDERABLES Final Result * XR Clavicle Left (07/27/2024 7:24 AM EST) Anatomical Region Laterality Modality Body, Clavicle Left Radiographic Rin ging 07/27/2024 7:24 AM EST Narrative 07/27/2024 9:09 AM EST ? [facility] ?[address] ?[place] [address] ?XRay Report ? Signed ? Patient: Ovidio Lacy,Ginette ?MR ?? #: [id number] ? : 1975 ?Acct:[id number] ? Age/Sex: 49 / F ?ADM Date: 07/27/24 ? Loc: HO.ED ? Attending Dr: ? Ordering Physician: Jana Mcdaniel ?? Date of Service: 07/27/24 ?? Procedure(s): XR clavicle LT ?? Accession Number(s): [id number] ? cc: Mackenzie Estrada; Jana Mcdaniel ? [...] MD in OV> ?07/27/24 0905 ? DD/ 0724 ? TD/TT: 07/27/24 0734 ? Assistant Director Of Financial Aid: ? Procedure Note Lorin, Image - 07/27/[address] [address] XRay Report Signed Patient: Ginette ArceoMR #: [id number] : 1975Acct:[id number] Age/Sex: 49 / FADM Date: 07/27/24 Loc: HO.ED Attending Dr: Ordering Physician: Jana Mcdaniel Date of Service: 07/27/24 Procedure(s): XR clavicle LT Accession Number(s): [id number] cc: Mackenzie Estrada; Jana Mcdaniel EXAMINATION: XR [...] signed by Arian Mondragon MD in OV> 07/27/24 0905 DD/ 3 TD/TT: 07/27/24 0734 Assistant Director Of Financial Aid: [facility] External Provider IMG XR PROCEDURES Final Result * XR Shoulder 2+ Views Left (07/27/2024 7:20 AM EST) Anatomical Region Laterality Modality Upper Extremities, Shoulder Left Radi ographic Imaging 07/27/2024 7:20 AM EST Narrative 07/27/2024 9:11 AM EST ? [facility] ?[address] ?[place] [address] ?XRay Report ? Signed ? Patient: Ovidio Lacy,Ginette ?MR ?? #: [id number] ? : 1975 ?Acct:[id number] ? Age/Sex: 49 / F ?ADM Date: 12/27/24 ? Loc: HO.ED ? Attending Dr: ? Ordering Physician: Jana Mcdaniel ?? Date of Service: 07/27/24 ?? Procedure(s): XR shoulder LT min 2V ?? Accession Number(s): [id number] ? cc: Mackenzie Estrada; Jana Mcdaniel ? [...] DD/ 0720 ? TD/TT: 07/27/24 0734 ? Assistant Director Of Financial Aid: ? Procedure Note Lorin, Image - 07/27/[address] [address] XRay Report Signed Patient: Ginette Arceo #: [id number] : 1975Acct:[id number] Age/Sex: 49 / FADM Date: 07/27/24 Loc: HO.ED Attending Dr: Ordering Physician: Jana Mcdaniel Date of Service: 12/27/24 Procedure(s): XR shoulder LT min 2V Accession Number(s): [id number] cc: Mackenzie Estrada; Jana Mcdaniel EXAMINATION: XR [...] Arian Mondragon MD 07/27/2024 09:09 AM EST Dictated By: Arian Mondragon MD Signed By: <Electronically signed by Arian Mondragon MD in OV> 07/27/24 0909 DD/ 0720 TD/TT: 07/27/24 0734 Assistant Director Of Financial Aid: [facility] External Provider IMG XR PROCEDURES Final Result * XR Chest 2 Views (07/27/2024 7:20 AM EST) Anatomical Region Laterality Modality Chest Radiographic Rin ging 07/27/2024 7:20 AM EST Narrative 07/27/2024 9:10 AM EST ? [facility] ?[address] ?[place] [address] ?XRay Report ? Signed ? Patient: Ovidio Lacy,Ginette ?MR ?? #: [id number] ? : 1975 ?Acct:[id number] ? Age/Sex: 49 / F ?ADM Date: 12/27/24 ? Loc: HO.ED ? Attending Dr: ? Ordering Physician: Jana Mcdaniel ?? Date of Service: 07/27/24 ?? Procedure(s): XR chest 2V ?? Accession Number(s): [id number] ? cc: Mackenzie Estrada; Jana Mcdaniel ? [...] DD/ 0720 ? TD/TT: 07/27/24 0734 ? Assistant Director Of Financial Aid: ? Procedure Note Donshantelter, Image - 07/27/2024 [place] [address] XRay Report Signed Patient: Ginette ArceoMR #: [id number] : 1975Acct:[id number] Age/Sex: 49 / FADM Date: 07/27/24 Loc: HO.ED Attending Dr: Ordering Physician: Jana Mcdaniel Date of Service: 07/27/24 Procedure(s): XR chest 2V Accession Number(s): [id number] cc: Mackenzie Estrada; Jana Mcdaniel EXAMINATION: XR [...] signed by Arian Mondragon MD in OV> 07/27/24 0906 DD/ 9 TD/TT: 07/27/2434 Assistant Director Of Financial Aid: [facility] External Provider IMG XR PROCEDURES Final Result * High Sensitivity Troponin I (07/27/2024 1:09 AM EST) Only the most recent of2 resultswithin the time period is included. [facility] TROPONIN I HIGH SENSITIVITY <2.7 <3.5 - 17.0 ng/L [facility] Comment:The Shea high sens itivity Troponin-I results should beused in conjunction with other diagnostic information suchas ECG, clinical observations and information, and patientsymptoms to aid in the diagnosis of [place]. 07/27/2024 1:09 AM EST 07/27/2024 1:19 AM EST Generic External Data Provider LAB BLOOD ORDERAB LES Final Result [facility] [address] [place] [phone] * (ABNORMAL) CBC auto differential (07/27/2024 1:09 AM EST) [facility] White Blood Count 4.9 4.8 - 10.8 X10*3/uL [facility] Red Blood Count 3.62(L) 4.20 - 5.50 X10*6/uL [facility] Hemoglobin 10.2(L) 12.0 - 16.0 g/dl [facility] Hematocrit 31.7(L) 37.0 - 47.0 % [facility] Mean Corpuscular Volume 87.6 80.0 - 98.0 fL [facility] Mean Corpuscular Hemoglobin 28.2 27.0 - 33.0 pg [facility] Mean Corpuscular HGB Conc 32.2 31.0 - 35.0 g/dl [facility] Red Cell Distribution Width 14.0 11.0 - 16.0 % [facility] Platelet Count 300 160 - 400 X10*3/uL [facility] Mean Platelet Volume 10.1 9.4 - 12.3 fL [facility] Neutrophils Percent Auto 61.2 45 - 73 % [facility] Imm Gran Pct Auto 0.2 0.0 - 0.4 % [facility] Lymphocytes Percent Auto 29.7 20 - 40 % [facility] Monocytes Percent Auto 7.1 2 - 11 % [facility] Eosinophils Percent Auto 1.6 0 - 4 % [facility] Basophils Percent Auto 0.2 0 - 2 % [facility] NRBC Pct Auto 0.0 0.0 - 0.2 /100WBC [facility] Neutrophils Absolute Auto 3.0 2.0 - 8.3 x10*3/uL [facility] Imm Gran Abs Auto 0.01 0.00 - 0.03 X10*3/uL [facility] Lymphocytes Absolute Auto 1.5 1.2 - 4.9 X10*3/uL [facility] Monocytes Absolute Auto 0.4 0.1 - 1.2 X10*3/uL [facility] Eosinophils Absolute Auto 0.1 0.0 - 0.4 X10*3/uL [facility] Basophils Absolute Auto 0.0 0.0 - 0.2 X10*3/uL [facility] NRBC Abs Auto 0.000 0.0 - 0.012 X10*3/uL [facility] 07/27/2024 1:09 AM EST 07/27/2024 1:19 AM EST us Generic External Data Provider LAB BLOOD ORDERAB LES Final Result [facility] [address] [place] [address] [phone] * (ABNORMAL) Comprehensive Metabolic Panel (07/27/2024 1:09 AM EST) Sodium 140 135 - 145 mmol/L [facility] Potassium 3.1(L) 3.3 - 5.1 mmol/L [facility] Chloride 105 96 - 108 mmol/L [facility] Carbon Dioxide 23 22 - 29 mmol/L [facility] Anion Gap 15 12 - 20 [facility] Urea Nitrogen (BUN) 11 9 - 16 mg/dL [facility] Creatinine, Serum 0.73 0.5 - 1.4 mg/dL [facility] Creatinine Clr Calc Pharmacy 98.5 [facility] Comment:Provided height and weight: 162.56 cm,83.5 kg.eGFR (calculated from the MDRD study equation) and eCrCl(calculated from the Cockcroft-Gault equation) are based ondifferent parameters and may not yield comparable results.If eCrCl result is absurd, please check patient'sheight/weight. Estimated Glomerular Filt Rate >60 [facility] Comment:Chronic Kidney Disea se: Estimated GFR < 60 mL/min/1.68a4Xymzmo Kidney Disease: Estimated GFR < 15 mL/min/1.73m2 Glucose 107 60 - 115 mg/dL [facility] Calcium 9.2 8.4 - 10.2 mg/dL [facility] Bilirubin, Total 0.5 0.0 - 1.0 mg/dL [facility] Aspartate Amino Transferase 48(H) 5 - 31 U/L [facility] Alanine Aminotransferase 32(H) 0 - 31 U/L [facility] Total Protein 8.5(H) 6.5 - 8.0 g/dL [facility] Albumin Level 3.7 3.5 - 5.0 g/dL [facility] Alkaline Phosphatase 151(H) 39 - 117 U/L [facility] 07/27/2024 1:09 AM EST 07/27/2024 1:19 AM EST us Generic External Data Provider LAB BLOOD ORDERAB LES Final Result [facility] [address] [place] [address] [phone] * XR Hip 2 or 3 Views Right (07/12/2024 3:30 AM EST) Anatomical Region Laterality Modality Lower Extremities, Hip Right Radiograp hic Imaging 07/12/2024 3:30 AM EST Narrative 07/12/2024 4:26 AM EST ? [facility] ?[address] ?[place] [address] ?XRay Report ? Signed ? Patient: Ginette Arceo ?MR ?? #: [id number] ? : 1975 ?Acct:[id number] ? Age/Sex: 48 / F ?ADM Date: 07/12/24 ? Loc: HO.ED ? Attending Dr: ? Ordering Physician: Megan Pathak DO ?? Date of Service: 07/12/24 ?? Procedure(s): XR hip RT min 2V ?? Accession Number(s): [id number] ? cc: Megan Pathak DO; [facility] ? EXAMINATION: ?? XR HIP, RIGHT [...] right thigh coursing beyond the image ?? [id number]. Surgical clip is projected over the left [...] DD/ 0330 ? TD/TT: 07/12/24 0350 ? Assistant Director Of Financial Aid: EF ? Procedure Note Donotuseinterpreter, Image - 07/12/[address] [address] XRay Report Signed Patient: Ginette ArceoMR #: [id number] : 1975Acct:[id number] Age/Sex: 48 / FADM Date: 07/12/24 Loc: HO.ED Attending Dr: Ordering Physician: Megan Pathak DO Date of Service: 07/12/24 Procedure(s): XR hip RT min 2V Accession Number(s): [id number] cc: Megan Pathak DO; [facility] EXAMINATION: XR HIP, RIGHT CLINICAL INFORMATION: [...] the right thigh coursing beyond the image [id number]. Surgical clip is projected over the left [...] 07/12/24 0422 DD/ 0330 TD/TT: 07/12/24 0350 Assistant Director Of Financial Aid: NICOLE [facility] External Provider IMG XR PROCEDURES Edited Result - Final * Hepatitis C Ab (04/11/2024 10:26 AM EDT) Hepatitis C Antibody Nonreactive Nonreactive [facility] Comment:Antibodies to HCV no t detected; does not exclude early acuteHCV infection. Blood Venous blood specimen / Unknown 04/11/2024 10:26 AM EDT 04/11/2024 11:19 AM EDT Mackenzie Estrada MD LAB BLOOD ORDERABLES Final Res ult Performing Organization Address City/[facility]/ZIP Co de Phone Number [facility] [address] [place] [address] [phone] * HIV-1/2 Antigen and Antibodies, Fourth Generation, with Reflexes (04/11/2024 10:26 AM EDT) HIV AB/AG Nonreactive Nonreactive [facility] Comment:HIV-1 p24 Ag and/or HIV-1/HIV-2 Ab not detected.A test result that is nonreactive does not exclude thepossibility of exposure to or infection with HIV-1 and/orHIV-2. Nonreactive results in this assay for individualswith prior exposure to HIV-1 and/or HIV-2 may be due toantigen and antibody levels that are below the limit ofdetection of this assay.The [employer] HIV Ag/Ab Combo assay result andsupplemental assay results should be interpreted inconjunction with the patient's clinical presentation,history and other laboratory results. If the results areinconsistent with clinical evidence, additional testing issuggested to confirm the result. Blood Venous blood specimen / Unknown 04/11/2024 10:26 AM EDT 04/11/2024 11:19 AM EDT us Mackenzie Estrada MD LAB BLOOD ORDERABLES Final Res ult Performing Organization Address City/[facility]/ZIP Co de Phone Number [facility] [address] [place] [address] [phone] * HPV mRNA E6/E7 w/Reflex to HPV Genotypes 16, 18/45 (09/29/2023 12:26 PM EST) HPV nRNA E6/E7 Not Detected Not Detected [facility] Comment:Methodology: Transcr iption-Mediated AmplificationThis assay detects E6/E7 viral messenger RNA (mRNA) from 14high-risk HPV types (16,18,31,33,35,39,45,51,52,56,58,59,66,68).Cervical sources are required for HPV testing.If a vaginal source from a patient who has had atotal hysterectomy with removal of cervix wassubmitted, please contact the testing laboratoryfor alternative testing options.For additional information, please refer tohttp://education.[employer].com/faq/IRH305e8(This link if provided for information/educational purposes only.)THIS TEST WAS PERFORMED AT:[facility] [place] [phone] GALVAN MD HPV mRNA E6/E7 [facility] HPV 16 RNA TNP [facility] HPV 18/45 RNA [facility] 09/29/2023 12:2 6 PM EST 09/30/2023 11:30 AM EST Mackenzie Estrada MD LAB CYTOLOGY ORDERABLES Final Result Performing Organization Address City/State/[facility] Co de Phone Number [facility] [address] [place] [phone] * Pap Smear (09/29/2023 12:26 PM EST) 09/29/2023 12:2 6 PM EST 09/30/2023 11:30 AM EST Narrative [facility] - 10/12/2023 4:18 PM EDT ----- ------- Name: Ginette Arceo ?Age/Sex: 48/F ? : 1975 Unit#: [id number] ?? Attend Dr: Mackenzie Estrada ?Re09/29/23 ?Status: DEP REF ? Location: HO.CX ? Disch: ? ----- ------- SPEC : [id number] ? RECD: 09/30/23 ? STATUS: ??SOUT ? REQ NUM: [id number] ? BHAVIN: 09/29/23-1226 ? SUBM DR: Mackenzie Estrada ? ENTERED: ??09/30/23-7573 ?SP TYPE: Pap Smr ?OTHR DR: ? ORDERED: ??Pap Smear ? Interpretation ?? Satisfactory for evaluation. ?? Negative for intraepithelial lesion or malignancy. ?HPV mRNA E6/E7: ?NOT DETECTED ? This assay detects E6/E7 viral messenger RNA (mRNA) from 14 high-risk HPV types (16, 18, ?? 31, 33, 35, 39, 45, 51, 52, 56, 58, 59, 66, 68) ?? HPV testing performed by [facility], [place], [place]. ??See reference laboratory ?? portion of the EMR for entire report. ?Clinical Information LMP: Heavy menstrual bleeding past two weeks Previous PAP test: Unknown date/findings Other history: ? Material Received ?? ThinPrep-Cervical ----- ------- Signed (signature on file) BARB Hawley (ASCP) 10/12/23 [id number] ? ----- ------- ? END OF REPORT ? us Mackenzie Estrada MD LAB CYTOLOGY ORDERABLES Final Result [facility] [address] [place] [phone] * Mammography Report 1 (10/09/2021 12:05 PM EST) Anatomical Region Laterality Modality Breast Bilateral Mammography 10/09/2021 12:0 5 PM EST Narrative 10/12/2021 2:06 PM EDT Refer to the Notes tab for result details [facility] Procedure: Mammography Report 1 Procedure Note Provider, MD Waqar - 10/24/2022 Refer to the Notes tab for result details [facility] Procedure: Mammography Report 1 Mackenzie Estrada MD IMG BI PROCEDURES Final Result * Colonoscopy (10/28/2017) Colonoscopy Normal Normal Narrative Remi Henriquezba - 10/28/2017 Recommended 10 year follow up ([facility] Historical Provider HEALTH MAINTENANCE Edited Result - Final from Last 3 Months or Most Recently Relevant to Health Maintenance Insurance * Guarantor: Ginette Arceo Account Type Relation to Patient Date of Phone Billing Address Personal/Family Self 1975 [address] [place] [address] [facility] ST[facility] ADULT Care Teams Dog Bather Relationship Specialty Start Date End Date Mackenzie Estrada MD [address] [place] [phone] PCP - General Family Medicine 07/10/20
--- OUTSIDE RECORDS SUMMARY | 2024-09-14 10:59 | XMS_ITS | Encounter Summary ---
Author Organization [employer] Address [address] [facility] [address] 7t [place] [address] Care Team Providers Care Disability Case Manager Name Role Phone Mackenzie Estrada MD Primary Care Provider [phone] Reason for Visit * Reason Onset Date Comments Appointment Request 08/16/2023 Encounter Details Date Type Department Care Team ([facility] Contact Info) Description 08/16/2023 Telephone [facility] MED[facility]INE [address] [place], [place] [phone] Mackenzie Estrada MD [address] [place] [address] Appointment Request Social History Tobacco Use Types [...] be seen today. Please contact pt @ [phone] Latvian Speaker documented in this encounter Plan of Treatment Upcoming Encounters Date Type Department Care Team (Late st Contact Info) Description 09/24/2024 3:15 PM EST Office Visit [facility] MED[facility]INE [address] [place] [address] Mackenzie Estrada MD [address] [place] [address] 10/01/2024 10:00 AM EST Office Visit [facility] OPTOMETRY [address] [place] [address] Libra Linder, OD 230 [place] [address] 11/06/2024 9:45 AM EDT Office Visit [facility] MEDICINE [address] [place] [address] documented as of this encounter Goals Goal Patient Goal Type Associated Problems Recent Progress Patient-Stated? Author Quit using tobacco (cigarettes, smokeless, etc) Tobacco Use No Corey Lin, PharmD documented as of this encounter Visit Diagnoses Not on filedocumented in this encounter Care Teams Disability Case Manager Relationship Specialty Start Date End Date Mackenzie Estrada MD [address] [place] [address] PCP - General Family Medicine 07/10/20 documented as of this encounter
--- OUTSIDE RECORDS SUMMARY | 2024-09-14 10:59 | XMS_ITS | Encounter Summary ---
Author Organization [employer] Address [address] 7t [place] [address] Care Team Providers Care Laborer Pie Bakery Name Role Phone Mackenzie Estrada MD Primary Care Provider [phone] Reason for Visit * Reason Comments Med Refill Encounter Details Date Type Department Care Team ([facility] Contact Info) Description 06/02/2023 Refill [facility] MED[facility]INE 230 [place], [place] [phone] Mackenzie Estrada MD 230 [place], [place] [phone] Pain in both hands Social History Tobacco [...] 3:15 PM EST Office Visit [facility] MEDICINE [address] [place] [address] Mackenzie Estrada MD 230 [place] [address] 10/01/2024 10:00 AM EST Office Visit [facility] OPTOMETRY [address] [place] [address] Kailash, Libra, OD 230 [place] [address] 11/06/2024 9:45 AM EDT Office Visit [facility] MEDICINE [address] [place] [address] documented as of this encounter Goals Goal Patient Goal Type Associated Problems Recent Progress Patient-Stated? Author Quit using tobacco (cigarettes, smokeless, etc) Tobacco Use No Corey Lin, KelechiD documented as of this encounter Visit Diagnoses Diagnosis Pain in both hands documented in this encounter Care Teams Laborer Pie Bakery Relationship Specialty Start Date End Date Mackenzie Estrada MD [address] [place] [address] [phone] PCP - General Family Medicine 07/10/20 documented as of this encounter
--- OUTSIDE RECORDS SUMMARY | 2024-09-14 10:59 | XMS_ITS | Encounter Summary ---
Author Organization [employer] Address [address] 7t [place] [address] Care Team Providers Care Disability Rater Name Role Phone Mackenzie Estrada MD Primary Care Provider [phone] Encounter Details Date Type Department Care Team ([facility] st Contact Info) Description 05/21/2024 Telephone [facility] MEDICINE 230 [place], [place] [phone] Mackenzie Estrada MD 230 [place], [place] [phone] Social History Tobacco Use Types Packs/Day Years [...] Description 09/24/2024 3:15 PM EST Office Visit [facility] MEDICINE 230 [place] [address] Mackenzie Estrada MD 230 [place] [address] 10/01/2024 10:00 AM EST Office Visit [facility] OPTOMETRY [address] [place] [address] Kailash, Libra, OD 230 [place] [address] 11/06/2024 9:45 AM EDT Office Visit [facility] MEDICINE 230 [place] [address] documented as of this encounter Goals Goal Patient Goal Type Associated Problems Recent Progress Patient-Stated? Author Quit using tobacco (cigarettes, smokeless, etc) Tobacco Use No Corey Lin, KelechiD documented as of this encounter Visit Diagnoses Not on filedocumented in this encounter Additional Health Concerns Assessment Noted Time PHQ-9 Depression Total Score: 2 04/30/20 10:41 AM EDT documented as of this encounter Care Teams Disability Rater Relationship Specialty Start Date End Date Mackenzie Estrada MD [address] [place] [address] PCP - General Family Medicine 07/10/20 documented as of this encounter
--- OUTSIDE RECORDS SUMMARY | 2024-09-14 10:59 | XMS_ITS | Encounter Summary ---
Author Organization [facility] Address [address] [facility] 7t [place] [address] Care Team Providers Care Suction Drum Drier Operator Name Role Phone Mackenzie Estrada MD Primary Care Provider [phone] Reason for Visit * Reason Comments Med Refill Encounter Details Date Type Department Care Team (Late Contact Info) Description 07/28/2022 Refill [facility] MEDICINE [address] [place] [address] Mackenzie Estrada MD [address] [place] [address] Pain in both hands Social History Tobacco [...] 3:15 PM EST Office Visit [facility] MEDICINE 230 [place] [address] Mackenzie Estrada MD [address] [place] [address] 10/01/2024 10:00 AM EST Office Visit [facility] OPTOMETRY [address] [place], [place] [phone] Libra Linder, OD 230 [place] [address] 11/06/2024 9:45 AM EDT Office Visit [facility] MEDICINE 230 [place] [address] documented as of this encounter Visit Diagnoses Diagnosis Pain in both hands documented in this encounter Care Teams Suction Drum Drier Operator Relationship Specialty Start Date End Date Mackenzie Estrada MD [address] [place], [place] [phone] PCP - General Family Medicine 07/10/20 documented as of this encounter
--- OUTSIDE RECORDS SUMMARY | 2024-09-14 10:59 | XMS_ITS | Encounter Summary ---
Author Organization [employer] Address [address] 7t [place] [address] Care Team Providers Care Spray Gun Sizer Name Role Phone Mackenzie Estrada MD Primary Care Provider [phone] Reason for Visit * Reason Comments Med Refill Encounter Details Date Type Department Care Team ([facility] st Contact Info) Description 01/12/2024 Refill [facility] MEDICINE 230 [place], [place] [phone] Mackenzie Estrada MD 230 [place], [place] [phone] Rheumatoid arthritis involving multiple sites with positive rheumatoid factor ([facility] Social History Tobacco Use Types Packs/Day Years [...] Description 09/24/2024 3:15 PM EST Office Visit [facility] MEDICINE [address] [place] [address] Mackenzie Estrada MD 230 [place] [address] 10/01/2024 10:00 AM EST Office Visit [facility] OPTOMETRY [address] [place] [address] Kailash, Libra, OD 230 [place] [address] 11/06/2024 9:45 AM EDT Office Visit [facility] MEDICINE [address] [place] [address] documented as of this encounter Goals Goal Patient Goal Type Associated Problems Recent Progress Patient-Stated? Author Quit using tobacco (cigarettes, smokeless, etc) Tobacco Use No Corey Lin, KelechiD documented as of this encounter Visit Diagnoses Diagnosis Rheumatoid arthritis involving multiple sites with positive rheumatoid factor ([facility]) documented in this encounter Care Teams Spray Gun Sizer Relationship Specialty Start Date End Date Mackenzie Estrada MD [address] [place] [address] PCP - General Family Medicine 07/10/20 documented as of this encounter
--- OUTSIDE RECORDS SUMMARY | 2024-09-14 10:59 | XMS_ITS | Encounter Summary ---
Author Organization [employer] Address [address] 7t [place] [address] Care Team Providers Care Breakfast Bar Attendant Name Role Phone Mackenzie Estrada MD Primary Care Provider [phone] Encounter Details Date Type Department Care Team (Late st Contact Info) Description 06/03/2023 Orders Only [facility] MEDICINE [address] [place], [place] [phone] Mackenzie Estrada MD 230 [place], [place] [phone] Pain in both hands Social History Tobacco [...] 3:15 PM EST Office Visit [facility] MEDICINE [address] [place] [address] Mackenzie Estrada MD 230 [place] [address] 10/01/2024 10:00 AM EST Office Visit [facility] OPTOMETRY [address] [place] [address] Libra Linder, OD 230 [place] [address] 11/06/2024 9:45 AM EDT Office Visit [facility] MEDICINE [address] [place] [address] documented as of this encounter Goals Goal [...] EST Narrative 06/03/2023 5:47 PM EDT ? [facility] ?[address] ?[place] [address] ?XRay Report ? Signed ? Patient: Ovidio Hamma,Ginette ?MR ?? #: [id number] ? : 1975 ?Acct:[id number] ? Age/Sex: 47 / F ?ADM Date: 06/25/23 ? Loc: HO.ED ? Attending Dr: ? Ordering Physician: Treasure Clemons ?? Date of Service: 06/25/23 ?? Procedure(s): XR chest 2V ?? Accession Number(s): [id number] ? cc: Mackenzie Estrada; Treasure Clemons ? [...] 1230 ? DD/ 1215 ? TD/TT: ? Stencil Machine Operator: MSM ? Procedure Note Lorin, Image - 06/25/2023 [facility] [address] [facility] [place] [address] XRay Report Signed Patient: Ginette ArceoMR #: [id number] : 1975Acct:[id number] Age/Sex: 47 / FADM Date: 06/25/23 Loc: HO.ED Attending Dr: Ordering Physician: Treasure Clemons Date of Service: 06/25/23 Procedure(s): XR chest 2V Accession Number(s): [id number] cc: Mackenzie Estrada; Treasure Clemons EXAMINATION: XR [...] in OV> 06/25/23 1230 DD/ 1215 TD/TT: Stencil Machine Operator: MAGG[facility] External Provider IMG XR PROCEDURES Edited Result - Final * (ABNORMAL) Urinalysis, Complete, with Reflex to Culture (06/03/2023 4:49 PM EDT) Color Urine Yellow [facility] Appearance Urine Clear [facility] PH 5.5 5.0 - 9.0 [facility] Glucose Urine UA Negative Negative mg/dL [facility] Urine Blood Large (3+)(A) Negative [facility] Specific [place] - Urine 1.025 1.005 - 1.025 [facility] Urine Protein Negative Neg-Trace mg/dL [facility] Urine Ketones Negative Negative mg/dL [facility] Nitrite Urine Negative Negative [facility] Leukocyte Esterase Urine Negative Negative [facility] RBC Urine >20(A) 0 - 2 /HPF [facility] Urine WBC 0-5 0 - 5 /HPF [facility] Urine Squamous Epithelial Cell 11-20 0 - 2 /HPF [facility] Urine Bacteria 1+ None Seen [facility] Hyaline Casts, Urine 0-2 0 - 2 /LPF [facility] 06/03/2023 4:49 PM EDT 06/03/2023 4:52 PM EDT [facility] - 06/03/2023 5:00 PM EDT Urine, Clean Catch us Generic External Data Provider LAB URINE ORDERAB LES Final Result Performing Organization Address [facility]/ZIP Co de Phone Number [facility] [address] [place] [address] [phone] * (ABNORMAL) Urinalysis w/reflex microscopic (06/03/2023 4:49 PM EDT) Color Urine Yellow [facility] Appearance Urine Clear [facility] PH 5.5 5.0 - 9.0 [facility] Glucose Urine UA Negative Negative mg/dL [facility] Urine Blood Large (3+)(A) Negative [facility] Specific [place] - Urine 1.025 1.005 - 1.025 [facility] Urine Protein Negative Neg-Trace mg/dL [facility] Urine Ketones Negative Negative mg/dL [facility] Nitrite Urine Negative Negative [facility] Leukocyte Esterase Urine Negative Negative [facility] 06/03/2023 4:49 PM EDT 06/03/2023 4:52 PM EDT [facility] - 06/03/2023 4:57 PM EDT Urine, Clean Catch us Generic External Data Provider LAB URINE ORDERAB LES Final Result Performing Organization Address City/[facility]/ZIP Co de Phone Number [facility] [address] [place] [address] [phone] * Influenza A B2 ID NOW (Corona) (06/03/2023 4:34 PM EDT) IDNOW SERIAL# [id number] [facility] Influenza A Negative Negative [facility] Influenza B2 Negative Negative [facility] Influenza A B2 Note See Note [facility] Comment:The Corona ID NOW In fluenza [...] LAB MICROBIOLOGY - GENERAL ORDERABLES Final Result [facility] [address] [place] [phone] * COVID-19 ID NOW (CORONA) (06/03/2023 4:34 PM EDT) IDNOW SERIAL# [id number] [facility] COVID-19 TEST Negative Negative [facility] COVID-19 NOTE See Note [facility] Comment: Results are for the identification of SARS-CoV2 RNA. TheSARS-CoV2 RNA is generally detectable in respiratory samplesduring the acute phase of infection. Positive results areindicative of the presence of SARS-CoV-2 RNA; clinicalcorrelation with patient history and other diagnosticinformation is necessary to determine patient infectionstatus. Positive results do not rule out bacterial infectionor co- infection with other viruses.Testing facilities within the [facility] and itsterritories are required to report all [...] use by authorized laboratories.Testing performed on the [employer] ID NOW utilizing NAAT. 06/03/2023 4:34 PM EDT 06/03/2023 4:40 PM EDT us Generic External Data Provider LAB MOLECULAR ARNAV GNOSTICS ORDERABLES Final Result [facility] [address] [place] [phone] documented in this encounter Visit Diagnoses Diagnosis Pain in both hands documented in this encounter Care Teams Breakfast Bar Attendant Relationship Specialty Start Date End Date Mackenzie Estrada MD [address] [place] [phone] PCP - General Family Medicine 07/10/20 documented as of this encounter
--- OUTSIDE RECORDS SUMMARY | 2024-09-14 10:59 | XMS_ITS | Encounter Summary ---
Author Organization [employer] [facility] Address [address] [facility] 7t [place] [address] Care Team Providers Care Divorce Attorney Name Role Phone Mackenzie Estrada MD Primary Care Provider [phone] Reason for Visit * Reason Comments Med Refill Encounter Details Date Type Department Care Team (Late Contact Info) Description 09/22/[address] [facility] [address] [place] [address] [phone] Sarika Palacios ANP [address] [place], [place] [phone] Tinea pedis of both feet Social History [...] PM EST Office Visit [facility] MEDICINE [address] [place] [address] Mackenzie Estrada MD [address] [place] [address] [phone] 10/01/2024 10:00 AM EST Office Visit [facility] OPTOMETRY [address] [place], [place] [phone] Libra Linder, OD 230 [place] [address] 11/06/2024 9:45 AM EDT Office Visit [facility] MEDICINE 230 [place] [address] documented as of this encounter Visit Diagnoses Diagnosis Tinea pedis of both feet documented in this encounter Care Teams Divorce Attorney Relationship Specialty Start Date End Date Mackenzie Estrada MD [address] [place], [place] [phone] PCP - General Family Medicine 07/10/20 documented as of this encounter
--- OUTSIDE RECORDS SUMMARY | 2024-09-14 10:59 | XMS_ITS | Encounter Summary ---
Author Organization [employer] Address [address] 7t [place] [address] Care Team Providers Care Rn Night Name Role Phone Mackenzie Estrada MD Primary Care Provider [phone] Encounter Details Date Type Department Care Team (Late st Contact Info) Description 04/20/2024 Telephone [facility] MEDICINE [address] [place], [place] [phone] Mackenzie Estrada MD [address] [place], [place] [phone] Social History Tobacco Use Types Packs/Day Years [...] Description 09/24/2024 3:15 PM EST Office Visit [facility] MEDICINE 230 [place] [address] Mackenzie Estrada MD [address] [place] [address] 10/01/2024 10:00 AM EST Office Visit [facility] OPTOMETRY [address] [place] [address] Kailash, Libra, OD 230 [place] [address] 11/06/2024 9:45 AM EDT Office Visit [facility] MEDICINE [address] [place] [address] documented as of this encounter Goals Goal Patient Goal Type Associated Problems Recent Progress Patient-Stated? Author Quit using tobacco (cigarettes, smokeless, etc) Tobacco Use No Corey Lin, Bailey documented as of this encounter Visit Diagnoses Not on filedocumented in this encounter Care Teams Rn Night Relationship Specialty Start Date End Date Mackenzie Estrada MD [address] [place] [phone] PCP - General Family Medicine 07/10/20 documented as of this encounter
--- OUTSIDE RECORDS SUMMARY | 2024-09-14 10:59 | XMS_ITS | Encounter Summary ---
Author Organization [facility] [employer] Address [address] [place] [address] Care Team Providers Care Skin Lifter Bacon Name Role Phone Mackenzie Estrada MD Primary Care Provider [phone] Reason for Visit * Reason Comments Med Refill Encounter Details Date Type Department Care Team ([facility] Contact Info) Description 07/27/2023 Refill [facility] MEDICINE 230 [place], [place] [phone] Name, MD Mark [address] [place] [address] Pain in both hands Social History Tobacco [...] Description 09/24/2024 3:15 PM EST Office Visit [facility] MEDICINE [address] [place] [address] Mackenzie Estrada MD 230 [place] [address] 10/01/2024 10:00 AM EST Office Visit [facility] OPTOMETRY [address] [place] [address] Kailash, Libra, OD 230 [place] [address] 11/06/2024 9:45 AM EDT Office Visit [facility] MEDICINE [address] [place] [address] documented as of this encounter Goals Goal Patient Goal Type Associated Problems Recent Progress Patient-Stated? Author Quit using tobacco (cigarettes, smokeless, etc) Tobacco Use No Corey Lin, PharmD documented as of this encounter Visit Diagnoses Diagnosis Pain in both hands documented in this encounter Care Teams Skin Lifter Bacon Relationship Specialty Start Date End Date Mackenzie Estrada MD [address] [place] [address] [phone] PCP - General Family Medicine 07/10/20 documented as of this encounter
--- OUTSIDE RECORDS SUMMARY | 2024-09-14 10:59 | XMS_ITS | Encounter Summary ---
Author Organization [employer] Address [address] 7t [place] [address] Care Team Providers Care International Student Counselor Name Role Phone Mackenzie Estrada MD Primary Care Provider [phone] Encounter Details Date Type Department Care Team (Late st Contact Info) Description 04/10/2024 Orders Only [facility] MEDICINE [address] [place], [place] [phone] Mackenzie Estrada MD [address] [place], [place] [phone] Social History Tobacco Use Types Packs/Day Years [...] Description 09/24/2024 3:15 PM EST Office Visit [facility] MEDICINE [address] [place] [address] Mackenzie Estrada MD [address] [place] [address] 10/01/2024 10:00 AM EST Office Visit [facility] OPTOMETRY [address] [place] [address] Kailash, Libra, OD 230 [place] [address] 11/06/2024 9:45 AM EDT Office Visit [facility] MEDICINE [address] [place] [phone] documented as of this encounter Goals Goal Patient Goal Type Associated Problems Recent Progress Patient-Stated? Author Quit using tobacco (cigarettes, smokeless, etc) Tobacco Use No Corey Lin, PharmD documented as of this encounter Visit Diagnoses Not on filedocumented in this encounter Care Teams International Student Counselor Relationship Specialty Start Date End Date Mackenzie Estrada MD [address] [place] [address] PCP - General Family Medicine 07/10/20 documented as of this encounter
--- OUTSIDE RECORDS SUMMARY | 2024-09-14 10:59 | XMS_ITS | Encounter Summary ---
Author Organization [employer] Address [address] [facility] [address] 7t [place] [address] Care Team Providers Care Brim Greaser Operator Name Role Phone Mackenzie Estrada MD Primary Care Provider [phone] Reason for Visit * Reason Onset Date Comments Hospital Follow-up 02/24/2024 Encounter Details Date Type Department Care Team ([facility] st Contact Info) Description 02/24/[address] [facility] MEDICINE [address] [place], [place] [phone] Mackenzie Estrada MD 230 [place] [address] Hospital Follow-up Social History Tobacco Use Types [...] from pt requesting a HDF appt. Hospital: [facility] Date of admission: 02/19 Discharge date: 02/23 Diagnosed: Rectal Bleeding Argentine Speaker documented in this encounter Plan of Treatment Upcoming Encounters Date Type Department Care Team (Late st Contact Info) Description 09/24/2024 3:15 PM EST Office Visit [facility] MEDICINE [address] [place] [address] Mackenzie Estrada MD 230 [place] [address] 10/01/2024 10:00 AM EST Office Visit [facility] OPTOMETRY [address] [place] [address] Libra Linder OD 230 [place] [address] 11/06/2024 9:45 AM EDT Office Visit [facility] MEDICINE [address] [place] [address] documented as of this encounter Goals Goal Patient Goal Type Associated Problems Recent Progress Patient-Stated? Author Quit using tobacco (cigarettes, smokeless, etc) Tobacco Use No Corey Lin, Bailey documented as of this encounter Visit Diagnoses Not on filedocumented in this encounter Care Teams Brim Greaser Operator Relationship Specialty Start Date End Date Mackenzie Estrada MD 230 [place] [address] PCP - General Family Medicine 07/10/20 documented as of this encounter
--- OUTSIDE RECORDS SUMMARY | 2024-09-14 10:59 | XMS_ITS | Encounter Summary ---
Author Organization [employer] Address [address] [facility] [address] 7t [place] [address] Care Team Providers Care Sheeting Puller Name Role Phone Mackenzie Estrada MD Primary Care Provider [phone] Encounter Details Date Type Department Care Team (Late st Contact Info) Description 05/10/2024 Orders Only [facility] MEDICINE [address] [place], [place] [phone] Mackenzie Estrada MD [address] [place], [place] [phone] Social History Tobacco Use Types Packs/Day Years [...] Office Visit [facility] MEDICINE [address] [place] [address] Mackenzie Estrada MD 230 [place] [address] 10/01/2024 10:00 AM EST Office Visit [facility] OPTOMETRY [address] [place] [address] Kailash, Libra, OD 230 [place] [address] 11/06/2024 9:45 AM EDT Office Visit [facility] MEDICINE [address] [place] [address] documented as of this encounter Goals Goal Patient Goal Type Associated Problems Recent Progress Patient-Stated? Author Quit using tobacco (cigarettes, smokeless, etc) Tobacco Use No Corey Lin, KelechiD documented as of this encounter Visit Diagnoses Not on filedocumented in this encounter Additional Health Concerns Assessment Noted Time PHQ-9 Depression Total Score: 2 04/30/20 10:41 AM EDT documented as of this encounter Care Teams Sheeting Puller Relationship Specialty Start Date End Date Mackenzie Estrada MD [address] [place] [address] PCP - General Family Medicine 07/10/20 documented as of this encounter
--- OUTSIDE RECORDS SUMMARY | 2024-09-14 10:59 | XMS_ITS | Encounter Summary ---
Author Organization [employer] Address [address] [facility] 7t [place] [address] Care Team Providers Care Associate Professor Of Education Name Role Phone Mackenzie Estrada MD Primary Care Provider [phone] Reason for Visit * Reason Onset Date Comments Triage 11/10/2022 Encounter Details Date Type Department Care Team ([facility] Contact Info) Description 11/10/2022 Telephone [facility] MEDICINE 230 [place], [place] [phone] Mackenzie Estrada MD 230 [place], [place] [phone] Triage Social History Tobacco Use Types Packs/Day [...] - 11/11/2022 11:10 AM EDT TC to [phone] via [employer] interpreters in regards to below message. Pt reports she went to [facility] since [facility] did not return her call. RN informed pt triage nurses attempted to call pt x2 however pt did not answer. RN reviewed [facility] ED note and pt presented to [...] however she has not been able to picker feeder the nystatin medication because [facility] did not have it. RN asked if [facility] informed the pt they were going to order it however pt was not sure. RN placed pt on hold and called [facility] pharmacy who reports it is supposed to be arriving in store today and pt should call around 3pm to inquire if it was received and ready for picker feeder. Pt verbalized understanding. RN advised pt if her rash does not resolve with medication and her pain does not resolve to call [facility] to schedule an appt for further evaluation. Pt verbalized understanding. Pt to F/U PRN. RN has printed ED note and placed in scan bin * Telephone Encounter - Chika Ingram LPN - 11/10/2022 2:30 PM EDT Triage call returned to patient with [place] farmworker [phone] to listed number x 2 no answer. Left message to return call to [phone]. Team Nurses tasked to follow with patient [...] Description 09/24/2024 3:15 PM EST Office Visit [facility] MEDICINE [address] [place] [address] Mackenzie Etsrada MD 230 [place] [address] 10/01/2024 10:00 AM EST Office Visit [facility] OPTOMETRY [address] [place] [address] Kailash, Libra, OD 230 [place] [address] 11/06/2024 9:45 AM EDT Office Visit [facility] MEDICINE [address] [place] [address] documented as of this encounter Visit Diagnoses Not on filedocumented in this encounter Care Teams Associate Professor Of Education Relationship Specialty Start Date End Date Mackenzie Estrada MD [address] [place] [address] PCP - General Family Medicine 07/10/20 documented as of this encounter
--- OUTSIDE RECORDS SUMMARY | 2024-09-14 10:59 | XMS_ITS | Encounter Summary ---
Author Organization [employer] [facility] Address [address] [facility] 7t [place] [address] Care Team Providers Care Materials Mgmt Tech Name Role Phone Mackenzie Estrada MD Primary Care Provider [phone] Encounter Details Date Type Department Care Team ([facility] Contact Info) Description 03/29/2023 Abstract [facility] MEDICINE [address] [place] [address] Cecilia Henriquez Social History Tobacco Use Types [...] Upcoming Encounters Date Type Department Care Team ([facility] Contact Info) Description 09/24/2024 3:15 PM EST Office Visit [facility] MED[facility]INE [address] [place] [address] Mackenzie Estrada MD 230 [place] [address] 10/01/2024 10:00 AM EST Office Visit [facility] OPTOMETRY [address] [place] [address] Libra Linder OD 230 [place] [address] 11/06/2024 9:45 AM EDT Office Visit [facility] MEDICINE [address] [place] [phone] documented as of this encounter Procedures Procedure Name Priority Date/Time Associated Diagnosis Comments COLONOSCOPY Routine 10/28/2017 documented in this encounter Results * Colonoscopy (10/28/2017) Colonoscopy Normal Normal Narrative Cecilia Henriquez - 10/28/2017 Recommended 10 year follow up ([facility]) us Historical Provider [employer] MAINTENANCE Edited Result - Final documented in this encounter Visit Diagnoses Not on filedocumented in this encounter Care Teams Materials Mgmt Tech Relationship Specialty Start Date End Date Mackenzie Estrada MD [address] [place] [address] PCP - General Family Medicine 07/10/20 documented as of this encounter
--- OUTSIDE RECORDS SUMMARY | 2024-09-14 10:59 | XMS_ITS | Encounter Summary ---
Author Organization [employer] [facility] Address [address] [facility] 7t [place] [address] Care Team Providers Care Cash Management Specialist Name Role Phone Mackenzie Estrada MD Primary Care Provider [phone] Reason for Visit * Reason Comments Med Refill Encounter Details Date Type Department Care Team ([facility] Contact Info) Description 08/25/2022 Refill [facility] MEDICINE [address] [place] [address] [phone] Mackenzie Estrada MD [address] [place], [place] [phone] Pain in both hands Social History Tobacco [...] Upcoming Encounters Date Type Department Care Team ([facility] Contact Info) Description 09/24/2024 3:15 PM EST Office Visit [facility] MEDICINE [address] [place] [address] [phone] Mackenzie Estrada MD [address] [place], [place] [phone] 10/01/2024 10:00 AM EST Office Visit [facility] OPTOMETRY [address] [place], [place] [phone] Libra Linder, OD 230 [place] [address] 11/06/2024 9:45 AM EDT Office Visit [facility] MEDICINE 230 [place] [address] documented as of this encounter Visit Diagnoses Diagnosis Pain in both hands documented in this encounter Care Teams Cash Management Specialist Relationship Specialty Start Date End Date Mackenzie Estrada MD [address] [place], [place] [phone] PCP - General Family Medicine 07/10/20 documented as of this encounter
--- OUTSIDE RECORDS SUMMARY | 2024-09-14 10:59 | XMS_ITS | Encounter Summary ---
Author Organization [employer] Address [address] [place] [address] Care Team Providers Care Security System Sales Consultant Name Role Phone Mackenzie Estrada MD Primary Care Provider Reason for Visit * Reason Comments Med Refill Encounter Details Date Type Department Care Team ([facility] Contact Info) Description 07/26/2023 Refill [facility] MEDICINE [address] [place], [place] [phone] Name, MD Mark [address] [place] [address] Pain in both hands Social History Tobacco [...] EST Office Visit [facility] MEDICINE [address] [place] [address] Mackenzie Estrada MD 230 [place] [address] 10/01/2024 10:00 AM EST Office Visit [facility] OPTOMETRY [address] [place] [address] Kailash, Libra, OD 230 [place] [address] 11/06/2024 9:45 AM EDT Office Visit [facility] MEDICINE [address] [place] [address] documented as of this encounter Goals Goal Patient Goal Type Associated Problems Recent Progress Patient-Stated? Author Quit using tobacco (cigarettes, smokeless, etc) Tobacco Use No Corey Lin, PharmD documented as of this encounter Visit Diagnoses Diagnosis Pain in both hands documented in this encounter Care Teams Security System Sales Consultant Relationship Specialty Start Date End Date Mackenzie Estrada MD [address] [place] [address] [phone] PCP - General Family Medicine 07/10/20 documented as of this encounter
== END 2024-09-14 11:56 | disposition home or self-care (01) ==
PROVIDERS: PCP General Practice; Visit Provider Physical Medicine & Rehabilitation
DX: M05.9 Rheumatoid arthritis with rheumatoid factor, unspecified (principal); M79.7 Fibromyalgia; M79.18 Myalgia, other site; G56.03 Carpal tunnel syndrome, bilateral upper limbs
CPT/HCPCS: 99204

== ENCOUNTER → 2024-09-14 11:03 | Outpatient (BNV) | payer MEDICAID, SELFPAY | PROVIDERS: PCP General Practice; Visit Provider Specialist | DX: M25.512 Pain in left shoulder (principal); M25.522 Pain in left elbow; M79.602 Pain in left arm | CPT/HCPCS: 73010; 73060; 73080 ==

== ENCOUNTER 2024-10-03 10:42 | Outpatient (AMB) | payer MEDICAID, SELFPAY ==
--- NOTE | 2024-10-03 11:35 | A.OFFVIS_ITS ---
Vital Signs 10/03/24 11:38 Height 5 ft 6 in Weight 180 lb 5.41 oz BMI 29.1 BP 130/64 Blood Pressure Location Lt brachial Position Sitting Pulse 65 Pulse Source Monitor Intake Visit Reasons: 4m follow up Intake Note: 4 mth f/up left arm pain since yesterday. Global Marketing Manager Required: Yes Global Marketing Manager Language: Net Trainer Name: voice/ telugu/[id number] Accompanied by: Self / Same As Patient Allergies almond [ALMONDS] Allergy (Severe, Verified 09/14/24 10:38) ANAPHYLAXIS adhesive tape [ADHESIVE TAPE] Allergy (Intermediate, Verified 09/14/24 10:38) RASH morphine [MORPHINE] Allergy (Intermediate, Verified 09/14/24 10:38) GI UPSET, difficulty breathing leflunomide Adverse Reaction (Intermediate, Verified 09/14/24 10:38) twitching tramadol [TRAMADOL] Adverse Reaction (Unknown, Verified 09/14/24 10:38) NAUSEA & VOMITING Medication List - Last Reconciled 10/03/24 by Ruddy Larios MD acetaminophen (Tylenol Extra Strength) 500 mg PO QID PRN albuterol sulfate 90 mcg/actuation 2 puffs inhalation Q6H PRN alprazolam 1 mg PO BEDTIME PRN apixaban (Eliquis) 5 mg PO BID ascorbic acid (vitamin C) (Vitamin C) 1,000 mg (2 x 500 mg) PO QAM atorvastatin 80 mg PO DAILY benztropine 0.5 mg PO DAILY cetirizine 10 mg PO QAM cholecalciferol (vitamin D3) (Vitamin D3) 25 mcg PO DAILY clopidogrel 75 mg PO DAILY cyanocobalamin (vitamin B-12) 1,000 mcg IM QMONTH cyclobenzaprine 5 mg PO TID PRN diclofenac sodium 1% 2 grams topical QID docusate sodium (Colace) 100 mg PO BID PRN doxycycline hyclate 100 mg PO BID 7 days famotidine 20 mg PO BID ferrous sulfate 325 mg PO QAM folic acid 1 mg PO DAILY gabapentin 400 mg PO TID lidocaine 5% (Lidoderm) 1 patch topical DAILY lidocaine-prilocaine 2.5-2.5 % 1 appl topical Q8-12H PRN methotrexate sodium 25 mg (10 x 2.5 mg) PO QWEEK metoprolol succinate ER 50 mg PO DAILY nicotine 1 patch transdermal Q24H nicotine 1 patch topical QAM nicotine (polacrilex) 4 mg PO DIRECTED oxycodone-acetaminophen 7.5-325 mg 1 tab PO Q8H PRN pantoprazole 40 mg PO DAILY polyethylene glycol 3350 17 grams PO DAILY PRN prednisone 40 mg (2 x 20 mg) PO DAILY risperidone 0.5 mg PO DAILY PRN sertraline (Zoloft) 75 mg PO DAILY trazodone 150 mg PO BEDTIME PRN umeclidinium 62.5 mcg/actuation (Incruse Ellipta) 1 inh inhalation DAILY ursodiol 250 mg PO BID vitamin A 1 cap PO DAILY HPI Comments Details: Pleasant 49 year female who is here for follow-up. She was seen in the hospital last year when she presented with chest discomfort and ruled in for NSTEMI. She has background history of rheumatoid arthritis and previous peripheral vascular disease with right SFA angioplasty. Cardiac catheterization showed plaque rupture in the LAD and this was treated with a drug-eluting stent. She also has background of DVT and was on apixaban. She has been on apixaban and clopidogrel since then. She was getting mild rectal bleed went more recently has not had any bleeding. She is denying any chest discomfort. She has some neck pain and arm discomfort related to neck issues. Blood pressure is well controlled. At the time she had mild NSTEMI-LV function was mildly reduced. [facility] Medical History Iron deficiency Seropositive rheumatoid arthritis Skin lesion Anxiety Achilles tendinitis Superficial femoral artery occlusion Knee pain, left Depression Hx of peripheral pulmonary artery stenosis PAD (peripheral artery disease) History of chemotherapy Cancer of heart Bone cancer Lung cancer Bleeding hemorrhoid Degeneration, intervertebral disc, lumbar Chronic GERD Degeneration of intervertebral disc at C4-C5 level Osteoarthritis of spine with radiculopathy, lumbar region Fibromyalgia Esophageal dysphagia Vitamin D deficiency Systemic lupus erythematosus Seropositive rheumatoid arthritis Rheumatoid arthritis involving multiple sites Gallstones Stress incontinence in female Nocturia Urgency-frequency syndrome De Quervain's disease (tenosynovitis) Depressive disorder Acute arthritis Hodgkin disease Surgical History History of heart surgery History of surgical removal of skin lesion (~07/13/23) History of angioplasty of vein History of biopsy H/O tubal ligation Hx of endoscopy Hx laparoscopic cholecystectomy Hx of colonoscopy History of esophagogastroduodenoscopy (EGD) History of repair of inguinal hernia History of lymph node dissection of left axilla Family History Maternal Grandmother Ovarian cancer Social History Household Members: Significant Other Housing: Apartment Are you a primary home care manager rn to a significant other at home: No Alcohol intake: never Comment: son at bedside Patient Tobacco Use Status: Never used Tobacco Tobacco use type: Cigarette Cigarette Packs Per Day: 1 Cigarettes Per Day: 20.0 Substance Use Type: Marijuana Advance Directives Date on File: 02/24/24 service: No Current occupational status: disabled 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 of Systems Const Denies chills, Denies fatigue, Denies fever(s), Denies frequent falls, Denies weakness, Denies weight gain and Denies weight loss ENT Denies dizziness Card Reports chest pain, Denies leg edema, Denies lightheadedness, Denies palpitations, Denies dyspnea and Denies dyspnea on exertion Resp Denies cough, Denies dyspnea and Denies dyspnea on exertion GI Denies hematochezia Musc Denies abnormal gait, Denies muscle weakness, Denies numbness, Denies radiating pain into limb and Denies tingling Neuro Denies abnormal gait, Denies dizziness, Denies frequent falls, Denies numbness, Denies tingling and Denies weakness Endo Denies fatigue and Denies palpitations Physical Exam Vital Signs: Last Vital Signs Pulse 65 10/03/24 11:38 BP 130/64 10/03/24 11:38 BMI result Body Mass Index 29.1 GENERAL APPEARANCE: in no acute distress, pleasant. NECK: no carotid bruit, no jugular venous distention. SKIN: no suspicious lesions, warm and dry. HEART: no murmurs, regular rate and rhythm. LUNGS: clear to auscultation bilaterally. ABDOMEN: soft, nontender. EXTREMITIES: no edema. PERIPHERAL PULSES: equal. NEUROLOGIC: No gross deficits, AAO X 3 Office Procedures EKG Details: Sinus rhythm 65 beats per minute, left axis deviation, left ventricular hypertrophy, QTC 436 milliseconds. [id number], Complete Assessment & Plan Assessment & Plan (1) Stable angina: Code(s): I20.89 - Other forms of angina pectoris Category: Medical (2) Ischemic cardiomyopathy: Code(s): I25.5 - Ischemic cardiomyopathy Category: Medical Plan [age] year female who is here for follow-up. She was seen at [facility] when she presented with NSTEMI and was transferred urgently to [facility] underwent cardiac catheterization. Cardiac catheterization showed plaque rupture in the LAD which was treated with drug- eluting stent. She had known history of DVT and was on apixaban and has been on apixaban Plavix combination since then. No significant bleeding since then. Clinically stable. She had mild cardiomyopathy by left ventriculography during the cardiac catheterization. We will repeat echocardiogram to document improvement in the EF. Follow up with us in few months. Thank you for allowing me to participate in the care of your patient. Please feel free to contact me if you have any questions. Orders: Orders CA echo transthoracic complete Today I21.4 - Non-ST elevation (NSTEMI) myocardial infarction Coding Level of Care Code Est Pt Level 4 (27032) Diagnoses Stable angina I20.89 Ischemic cardiomyopathy I25.5 CPT Codes EKG - CPT: [id number], Complete ([id number])
[2024-10-03 11:38] VITALS: BP 130/64; PULSE 65; BMI 29.1
--- OUTSIDE RECORDS SUMMARY | 2024-10-03 12:48 | XMS_ITS | Encounter Summary ---
Author Organization [employer] Address [address] 7[address] [place] [address] Care Team Providers Care Bag Valver Name Role Phone Mackenzie Estrada MD Primary Care Provider [phone] Encounter Details Date Type Department Care Team (Late st Contact Info) Description 10/03/2023 Orders Only [facility] MEDICINE 230 [place], [place] [phone] Mackenzie Estrada MD 230 [place], [place] [phone] Bacterial vaginosis (Primary Dx) Social History Tobacco [...] Care Team (Late st Contact Info) Description 10/11/2024 1:00 PM EDT Office Visit [facility] OPTOMETRY [address] [place] [address] Kailash, Libra, OD 230 [place] [address] 11/06/2024 9:45 AM EDT Office Visit [facility] MEDICINE [address] [place] [address] 12/28/2024 9:45 AM EDT Office Visit [address] [address] Mackenzie Estrada MD [address] [place] [address] documented as of this encounter Goals Goal Patient Goal Type Associated Problems Recent Progress Patient-Stated? Author Quit using tobacco (cigarettes, smokeless, etc) Tobacco Use No Corey Lin, Bailey documented as of this encounter Visit Diagnoses Diagnosis Bacterial vaginosis- Primary Unspecified vaginitis and vulvovaginitis documented in this encounter Care Teams Bag Valver Relationship Specialty Start Date End Date Mackenzie Estrada MD [address] [place] [address] PCP - General Family Medicine 07/10/20 documented as of this encounter
--- OUTSIDE RECORDS SUMMARY | 2024-10-03 12:48 | XMS_ITS | Encounter Summary ---
Author Organization [employer] Address [address] [facility]t [place] [address] Care Team Providers Care In Classroom Tutor Name Role Phone Mackenzie Estrada MD Primary Care Provider [phone] Reason for Visit * Reason Comments Med Refill Encounter Details Date Type Department Care Team ([facility] Contact Info) Description 09/07/2024 Refill [facility] MEDICINE 230 [place], [place] [phone] Mackenzie Estrada MD 230 [place], [place] [phone] Social History Tobacco Use Types Packs/Day Years [...] Description 10/11/2024 1:00 PM EDT Office Visit [facility] OPTOMETRY [address] [place] [address] Kailash, Libra, OD 230 [place] [address] 11/06/2024 9:45 AM EDT Office Visit [facility] MEDICINE [address] [place] [address] 12/28/2024 9:45 AM EDT Office Visit [facility] MEDICINE [address] [place] [address] Mackenzie Estrada MD [address] [place] [address] documented as of this encounter Goals Goal Patient Goal Type Associated Problems Recent Progress Patient-Stated? Author Quit using tobacco (cigarettes, smokeless, etc) Tobacco Use Corey Cornell, PharmD documented as of this encounter Visit Diagnoses Not on filedocumented in this encounter Additional Health Concerns Assessment Noted Time PHQ-9 Depression Total Score: 2 04/30/20 24 10:41 AM EDT documented as of this encounter Care Teams In Classroom Tutor Relationship Specialty Start Date End Date Mackenzie Estrada MD [address] [place] [address] PCP - General Family Medicine 07/10/20 documented as of this encounter
--- OUTSIDE RECORDS SUMMARY | 2024-10-03 12:48 | XMS_ITS | Encounter Summary ---
Author Organization [employer] Address [address] [facility] 7t [place] [address] Care Team Providers Care Senior Examiner Name Role Phone Mackenzie Estrada MD Primary Care Provider [phone] Reason for Visit * Reason Comments Care Coordination CHW outreach for SDO H PT-1 and food needs-referral completed Encounter Details Date Type Department Care Team (Latest Contact Info) Description 09/10/2024 Patient Outreach [facility] MEDICINE 230 [place] [address] Mackenzie Estrada MD 230 [place] [address] Care Coordination (CHW outreach for SDOH PT-1 [...] Wednesdays, and Walk-In Urgent Care Located in [facility] of [facility]. Patient provided with after-hours line for [facility], , which offer night time triage service and option to transfer to head of loss prevention provider if needed. documented in this encounter Plan of Treatment Upcoming Encounters Date Type Department Care Team (Late st Contact Info) Description 10/11/2024 1:00 PM EDT Office Visit [facility] OPTOMETRY [address] [place] [address] Libra Linder, OD [address] [place] [address] 11/06/2024 9:45 AM EDT Office Visit [facility] MEDICINE [address] [place] [address] 12/28/2024 9:45 AM EDT Office Visit [facility] MEDICINE [address] [place] [address] Mackenzie Estrada MD [address] [place] [address] documented as of this encounter Goals Goal [...] documented as of this encounter Care Teams Senior Examiner Relationship Specialty Start Date End Date Mackenzie Estrada MD [address] [place], [place] [phone] PCP - General Family Medicine 07/10/20 documented as of this encounter
--- OUTSIDE RECORDS SUMMARY | 2024-10-03 12:48 | XMS_ITS | Encounter Summary ---
Author Organization [employer] Address [address] [facility] 7t [place] [address] Care Team Providers Care Dry Press Operator Name Role Phone Mackenzie Estrada MD Primary Care Provider [phone] Encounter Details Date Type Department Care Team ([facility] Contact Info) Description 03/04/2023 Orders Only [facility] MEDICINE [address] [place] [address] [phone] Kat Yo MD 230 [place] [address] Social History Tobacco Use Types Packs/Day Years [...] Upcoming Encounters Date Type Department Care Team ([facility] Contact Info) Description 10/11/2024 1:00 PM EDT Office Visit [facility] OPTOMETRY [address] [place], [place] [phone] Libra Linder, OD 230 [place] [address] 11/06/2024 9:45 AM EDT Office Visit [facility] MEDICINE [address] [place] [address] 12/28/2024 9:45 AM EDT Office Visit [facility] MEDICINE [address] [place] [address] Mackenzie Estrada MD [address] [place] [address] documented as of this encounter Visit Diagnoses Not on filedocumented in this encounter Care Teams Dry Press Operator Relationship Specialty Start Date End Date Mackenzie Estrada MD 230 [place], [place] [phone] PCP - General Family Medicine 07/10/20 documented as of this encounter
--- OUTSIDE RECORDS SUMMARY | 2024-10-03 12:48 | XMS_ITS | Encounter Summary ---
Author Organization [email or web address] Address [address] [facility] [address] [place] [address] Care Team Providers Care Stove Bottom Worker Name Role Phone Mackenzie Estrada MD Primary Care Provider [phone] Reason for Visit * Reason Comments Med Refill Encounter Details Date Type Department Care Team ([facility] st Contact Info) Description 11/18/2023 Refill [facility] MEDICINE 230 [place], [place] [phone] Mackenzie Estrada MD 230 [place], [place] [phone] Pain in both hands Social History Tobacco [...] Description 10/11/2024 1:00 PM EDT Office Visit [facility] OPTOMETRY [address] [place] [address] Libra Linder, OD 230 [place] [address] 11/06/2024 9:45 AM EDT Office Visit [facility] MEDICINE [address] [place] [address] 12/28/2024 9:45 AM EDT Office Visit [address] [address] Mackenzie Estrada MD [address] [place] [address] documented as of this encounter Goals Goal Patient Goal Type Associated Problems Recent Progress Patient-Stated? Author Quit using tobacco (cigarettes, smokeless, etc) Tobacco Use No Corey Lin, KelechiD documented as of this encounter Visit Diagnoses Diagnosis Pain in both hands documented in this encounter Care Teams Stove Bottom Worker Relationship Specialty Start Date End Date Mackenzie Estrada MD [address] [place] [address] PCP - General Family Medicine 07/10/20 documented as of this encounter
--- OUTSIDE RECORDS SUMMARY | 2024-10-03 12:48 | XMS_ITS | Clinical Summary ---
Author Organization [facility] Address [address] [place] [address] Care Team Providers Care Machine Operator Picker Name Role Phone Sanjay Cruz MD Primary Care Provi [facility] Surgical History Surgery Date Site/Laterality Comments OTHER SURGICAL HISTORY 05/12/2020 Right PROCEDURE: [place] BX/EXC LYMPH NODE OPEN SUPERFICIAL; COMMENT: Axillary Lymph Node biopsy- Benign Lymphoid Tissue OTHER SURGICAL HISTORY 12/19/2019 Right PROCEDURE: [place] BX/EXC LYMPH NODE NEEDLE SUPERFICIAL; COMMENT: Axillary Lymph node -results were non daignostic Medical History Medical History Date Comments Anxiety DX:Anxiety Migraine DX:Migraine History of DVT (deep vein thrombosis) 05/23/2020 DX:History of DVT (deep vein thrombosis); COMMENT: 01/2005 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
--- OUTSIDE RECORDS SUMMARY | 2024-10-03 12:48 | XMS_ITS | Encounter Summary ---
Author Organization [facility] Address [address] [facility] 7t [place] [address] Care Team Providers Care Paper Machine Supervisor Name Role Phone Mackenzie Estrada MD Primary Care Provider [phone] Reason for Referral * Imaging (Routine) - Closed Specialty Diagnoses / Procedures Referred By Contac t Referred To Contact Radiology Diagnoses Abnormal ultrasound of pelvis Procedures MR Pelvis w/ and w/o Contrast Mackenzie Estrada MD [address] [place] [address] Phone: tel: fax: [address] Phone: tel: fax: Referral ID Status Reason Start Date Expiration Date Visits Re quested Visits Authorized [id number] Closed 10/31/2023 10/30/2024 1 1 Encounter Details Date Type Department Care Team (Late st Contact Info) Description 10/31/2023 Orders Only [facility] [address] [place], [place] [phone] Mackenzie Estrada MD [address] [place], [place] [phone] Abnormal ultrasound of pelvis (Primary Dx) Social [...] which I need to talk to her security attendant about. Thank you! documented in this encounter Plan of Treatment Upcoming Encounters Date Type Department Care Team (Late st Contact Info) Description 10/11/2024 1:00 PM EDT Office Visit [facility] OPT[facility] [address] [place] [address] Kailash Libra, OD [address] [place] [address] 11/06/2024 9:45 AM EDT Office Visit [facility] [address] [place] [address] 12/28/2024 9:45 AM EDT Office Visit [facility] [address] [place] [address] Mackenzie Estrada MD [address] [place] [address] documented as of this encounter Goals Goal [...] EDT Narrative 12/07/2023 9:11 AM EDT ? [facility] ?[address] ?[place] [address] ? Magnetic Resonance Report ? Signed ? Patient: Ovidio Lacy,Ginette ?MR ?? #: [id number] ? : 1975 ?Acct:[id number] ? Age/Sex: 48 / F ?ADM Date: 04/26/24 ? Loc: HO.MRI ? Attending Dr: Mackenzie Estrada MD ? Ordering Physician: Mackenzie Estrada ?? Date of Service: 11/25/23 ?? Procedure(s): MR pelvis wo/w con ?? Accession Number(s): [id number] ? cc: Mackenzie Estrada ? EXAMINATION: ?? [...] 7.8 x 3.6 ?? x 4.3 cm (hkqjvc-gt-bcrbcw x AP x transverse dimension). The junctional [...] 12/07/23906 ? DD/ 1505 ? TD/TT: ? Vmware Consultant: PD ? Procedure Note Donshantelter, Image - 12/07/2023 [place] [address] Magnetic Resonance Report Signed Patient: Ginette Arceo #: [id number] : 1975Acct:[id number] Age/Sex: 48 / FADM Date: 11/25/23 Loc: HO.MRI Attending Dr: Mackenzie Estrada MD Ordering Physician: Mackenzie Estrada Date of Service: 11/25/23 Procedure(s): MR pelvis wo/w con Accession Number(s): [id number] cc: Mackenzie Estrada EXAMINATION: MR PELVIS WITHOUT [...] measures 7.8 x 3.6 x 4.3 cm (kersru-tj-pqsjys x AP x transverse dimension). The junctional [...] MD Signed By: <Electronically signed by Scott Hasknis MD in OV> 12/07/23 0907 DD/ 1505 TD/TT: Vmware Consultant: PD us Mackenzie Estrada MD IMG MRI PROCEDURES Final Resul t documented in this encounter Visit Diagnoses Diagnosis Abnormal ultrasound of pelvis- Primary documented in this encounter Care Teams Paper Machine Supervisor Relationship Specialty Start Date End Date Mackenzie Estrada MD [address] [place] [address] PCP - General Family Medicine 07/10/20 documented as of this encounter
--- OUTSIDE RECORDS SUMMARY | 2024-10-03 12:48 | XMS_ITS | Encounter Summary ---
Author Organization [employer] Address [address] [facility] 7t [place] [address] Care Team Providers Care Networking Technician Name Role Phone Mackenzie Estrada MD Primary Care Provider [phone] Reason for Visit * Reason Comments Med Refill Encounter Details Date Type Department Care Team ([facility] st Contact Info) Description 06/03/2023 Refill [facility] [address] [place], [place] [phone] Mackenzie Estrada MD [address] [place], [place] [phone] Pain in both hands Social History Tobacco [...] Description 10/11/2024 1:00 PM EDT Office Visit [facility] [address] [place] [address] Libra Linder, OD 230 [place] [address] 11/06/2024 9:45 AM EDT Office Visit [facility] [address] [place] [address] 12/28/2024 9:45 AM EDT Office Visit [address] [address] Mackenzie Estrada MD [address] [place] [address] documented as of this encounter Goals Goal Patient Goal Type Associated Problems Recent Progress Patient-Stated? Author Quit using tobacco (cigarettes, smokeless, etc) Tobacco Use No Corey Lin, KelechiD documented as of this encounter Visit Diagnoses Diagnosis Pain in both hands documented in this encounter Care Teams Networking Technician Relationship Specialty Start Date End Date Mackenzie Estrada MD [address] [place] [address] PCP - General Family Medicine 07/10/20 documented as of this encounter
--- OUTSIDE RECORDS SUMMARY | 2024-10-03 12:48 | XMS_ITS | Encounter Summary ---
Author Organization [employer] Address [address] [facility] [address] 7t [place] [address] Care Team Providers Care Mid Level Provider Name Role Phone Mackenzie Estrada MD Primary Care Provider [phone] Reason for Visit * Reason Comments Med Refill Encounter Details Date Type Department Care Team ([facility] st Contact Info) Description 06/02/[address] [facility] MEDICINE [address] [place], [place] [phone] Mackenzie Estrada MD 230 [place], [place] [phone] Pain in both hands Social History Tobacco [...] Description 10/11/2024 1:00 PM EDT Office Visit [facility] OPTOMETRY [address] [place] [address] Libra Linder, OD 230 [place] [address] 11/06/2024 9:45 AM EDT Office Visit [facility] MEDICINE [address] [place] [address] 12/28/2024 9:45 AM EDT Office Visit [address] [address] Mackenzie Estrada MD [address] [place] [address] documented as of this encounter Goals Goal Patient Goal Type Associated Problems Recent Progress Patient-Stated? Author Quit using tobacco (cigarettes, smokeless, etc) Tobacco Use No Corey Lin, KelechiD documented as of this encounter Visit Diagnoses Diagnosis Pain in both hands documented in this encounter Care Teams Mid Level Provider Relationship Specialty Start Date End Date Mackenzie Estrada MD [address] [place] [address] PCP - General Family Medicine 07/10/20 documented as of this encounter
--- OUTSIDE RECORDS SUMMARY | 2024-10-03 12:48 | XMS_ITS | Encounter Summary ---
Author Organization [employer] Address [address] [facility] [address] 7t [place] [address] Care Team Providers Care Marine Mechanic Name Role Phone Mackenzie Estrada MD Primary Care Provider [phone] Encounter Details Date Type Department Care Team (Late st Contact Info) Description 12/13/2023 Orders Only [facility] MED[facility]INE [address] [place], [place] [phone] Mackenzie Estrada MD 230 [place], [place] [phone] Pain in both hands Social History Tobacco [...] PM EDT Office Visit [facility] OPTOMETRY [address] [place] [address] KailashLibra damian, OD 230 [place] [address] 11/06/2024 9:45 AM EDT Office Visit [facility] MEDICINE [address] [place] [address] 12/28/2024 9:45 AM EDT Office Visit [facility] [address] [place] [address] Maceknzie Estrada MD [address] [place] [address] documented as of this encounter Goals Goal Patient Goal Type Associated Problems Recent Progress Patient-Stated? Author Quit using tobacco (cigarettes, smokeless, etc) Tobacco Use No Corey Lin, PharmD documented as of this encounter Visit Diagnoses Diagnosis Pain in both hands documented in this encounter Care Teams Marine Mechanic Relationship Specialty Start Date End Date Mackenzie Estrada MD [address] [place] [address] PCP - General Family Medicine 07/10/20 documented as of this encounter
--- OUTSIDE RECORDS SUMMARY | 2024-10-03 12:48 | XMS_ITS | Encounter Summary ---
Author Organization [employer] Address [address] 7t [place] [address] Care Team Providers Care Tailer Off Name Role Phone Mackenzie Estrada MD Primary Care Provider [phone] Reason for Visit * Reason Comments Pre-visit Planning SDOH screening negat radha and tobacco screening negative Encounter Details Date Type Department Care Team ([facility] st Contact Info) Description 09/10/2024 Patient Outreach [facility] [address] [place], [place] [phone] Mackenzie Estrada MD [address] [place], [place] [phone] Pre-visit Planning (SDOH screening negative and tobacco [...] Frances Livingston - 09/10/2024 9:15 AM EST NEMESIO Daniels placed successful outbound call to patient for pre-visit planning. Patient name and confirmed. Patient confirms appt date and time, and has transportation arrangements. Biggest concern for appointment at this time is chronic pain requesting an increase in pain medication Appropriate screening completed in anticipation of appointment. Patient advised to bring to appointment a photo id and insurance card, SDFL positive. Patient looking for assistance with transportation Referral will be placed. documented in this encounter Plan of Treatment Upcoming Encounters Date Type Department Care Team (Late st Contact Info) Description 10/11/2024 1:00 PM EDT Office Visit [facility] OPTOMETRY [address] [place] [address] Libra Linder, OD [address] [place] [address] 11/06/2024 9:45 AM EDT Office Visit [facility] [address] [place] [address] 12/28/2024 9:45 AM EDT Office Visit [facility] [address] [place] [address] Mackenzie Estrada MD [address] [place] [address] documented as of this encounter Goals Goal Patient Goal Type Associated Problems Recent Progress Patient-Stated? Author Quit using tobacco (cigarettes, smokeless, etc) Tobacco Use No Corey iLn, KelechiD documented as of this encounter Visit Diagnoses Not on filedocumented in this encounter Additional Health Concerns Assessment Noted Time PHQ-9 Depression Total Score: 2 04/30/20 24 10:41 AM EDT documented as of this encounter Care Teams Tailer Off Relationship Specialty Start Date End Date Mackenzie Estrada MD [address] [place] [address] PCP - General Family Medicine 07/10/20 documented as of this encounter
--- OUTSIDE RECORDS SUMMARY | 2024-10-03 12:48 | XMS_ITS | Encounter Summary ---
Author Organization [employer] Address [address] [facility] [address] [facility] [address] 7t [place] [address] Care Team Providers Care Sap Portal Architect Name Role Phone Mackenzie Estrada MD Primary Care Provider [phone] Encounter Details Date Type Department Care Team (Late st Contact Info) Description 06/03/2023 Orders Only [facility] MED[facility] [address] [place], [place] [phone] Mackenzie Estrada MD [address] [place], [place] [phone] Pain in both hands Social History Tobacco [...] Description 10/11/2024 1:00 PM EDT Office Visit [facility] OPTOMETRY [address] [place] [address] Libra Linder, OD [address] [place] [address] 11/06/2024 9:45 AM EDT Office Visit [facility] MED[facility] [address] [place] [address] 12/28/2024 9:45 AM EDT Office Visit [facility] [address] [place] [address] Mackenzie Estrada MD [address] [place] [address] documented as of this encounter Goals Goal [...] EST Narrative 06/03/2023 5:47 PM EDT ? [facility] ?[address] ?[place] [address] ?XRay Report ? Signed ? Patient: Ovidio Hamma,Ginette ?MR ?? #: [id number] ? : 1975 ?Acct:[id number] ? Age/Sex: 47 / F ?ADM Date: 06/25/23 ? Loc: HO.ED ? Attending Dr: ? Ordering Physician: Treasure Clemons ?? Date of Service: 06/25/23 ?? Procedure(s): XR chest 2V ?? Accession Number(s): [id number] ? cc: Mackenzie Estrada; Treasure Clemons ? [...] ?? Unremarkable chest examination. ? Dictated By: ?Jamie Avelar S ? Signed By: ?<Electronically signed by Jamie S MD Rosio in OV> ?06/25/23 1230 ? DD/ 1215 ? TD/TT: ? Raw Hide Trimmer: MSM ? Procedure Note Lorin, Image - 06/25/2023 [facility] [address] [place] [address] XRay Report Signed Patient: Ginette ArceoMR #: [id number] : 1975Acct:[id number] Age/Sex: 47 / FADM Date: 06/25/23 Loc: HO.ED Attending Dr: Ordering Physician: Treasure Clemons Date of Service: 06/25/23 Procedure(s): XR chest 2V Accession Number(s): [id number] cc: Mackenzie Estrada; Treasure Clemons EXAMINATION: XR [...] in OV> 06/25/23 1230 DD/ 1215 TD/TT: Raw Hide Trimmer: MAGGIE [facility] External Provider IMG XR PROCEDURES Edited Result - Final * (ABNORMAL) Urinalysis, Complete, with Reflex to Culture (06/03/2023 4:49 PM EDT) Color Urine Yellow [facility] Appearance Urine Clear [facility] PH 5.5 5.0 - 9.0 [facility] Glucose Urine UA Negative Negative mg/dL [facility] Urine Blood Large (3+)(A) Negative [facility] Specific [place] - Urine 1.025 1.005 - 1.025 [facility] Urine Protein Negative Neg-Trace mg/dL [facility] Urine Ketones Negative Negative mg/dL [facility] Nitrite Urine Negative Negative [facility] Leukocyte Esterase Urine Negative Negative [facility] RBC Urine >20(A) 0 - 2 /HPF [facility] Urine WBC 0-5 0 - 5 /HPF [facility] Urine Squamous Epithelial Cell 11-20 0 - 2 /HPF [facility] Urine Bacteria 1+ None Seen [facility] Hyaline Casts, Urine 0-2 0 - 2 /LPF [facility] 06/03/2023 4:49 PM EDT 06/03/2023 4:52 PM EDT [facility] - 06/03/2023 5:00 PM EDT Urine, Clean Catch us Generic External Data Provider LAB URINE ORDERAB LES Final Result Performing Organization Address City/[facility]/ZIP Co de Phone Number [facility] [address] [place] [address] [phone] * (ABNORMAL) Urinalysis w/reflex microscopic (06/03/2023 4:49 PM EDT) Color Urine Yellow [facility] Appearance Urine Clear [facility] PH 5.5 5.0 - 9.0 [facility] Glucose Urine UA Negative Negative mg/dL [facility] Urine Blood Large (3+)(A) Negative [facility] Specific [place] - Urine 1.025 1.005 - 1.025 [facility] Urine Protein Negative Neg-Trace mg/dL [facility] Urine Ketones Negative Negative mg/dL [facility] Nitrite Urine Negative Negative [facility] Leukocyte Esterase Urine Negative Negative [facility] 06/03/2023 4:49 PM EDT 06/03/2023 4:52 PM EDT [facility] - 06/03/2023 4:57 PM EDT Urine, Clean Catch us Generic External Data Provider LAB URINE ORDERAB LES Final Result Performing Organization Address City/[facility]/ZIP Co de Phone Number [facility] [address] [place] [address] [phone] * Influenza A B2 ID NOW ([place]ona) (06/03/2023 4:34 PM EDT) IDNOW SERIAL# [id number] [facility] Influenza A Negative Negative [facility] Influenza B2 Negative Negative [facility] Influenza A B2 Note See Note [facility] Comment:The Corona ID NOW In [...] LAB MICROBIOLOGY - GENERAL ORDERABLES Final Result [facility] [address] [place] [phone] * COVID-19 ID NOW (COR[place]) (06/03/2023 4:34 PM EDT) IDNOW SERIAL# [id number] [facility] COVID-19 TEST Negative Negative [facility] COVID-19 NOTE See Note [facility] Comment: Results are for the identification of SARS-CoV2 RNA. TheSARS-CoV2 RNA is generally detectable in respiratory samplesduring the acute phase of infection. Positive results areindicative of the presence of SARS-CoV-2 RNA; clinicalcorrelation with patient history and other diagnosticinformation is necessary to determine patient infectionstatus. Positive results do not rule out bacterial infectionor co- infection with other viruses.Testing facilities within the [facility] and itsterritories are required to report [...] use by authorized laboratories.Testing performed on the Eq[employer] ID NOW utilizing NAAT. 06/03/2023 4:34 PM EDT 06/03/2023 4:40 PM EDT us Generic External Data Provider LAB MOLECULAR ARNAV GNOSTICS ORDERABLES Final Result [facility] [address] [place] [phone] documented in this encounter Visit Diagnoses Diagnosis Pain in both hands documented in this encounter Care Teams Sap Portal Architect Relationship Specialty Start Date End Date Mackenzie Estrada MD [address] [place] [address] PCP - General Family Medicine 07/10/20 documented as of this encounter
--- OUTSIDE RECORDS SUMMARY | 2024-10-03 12:48 | XMS_ITS | Encounter Summary ---
Author Organization [employer] Address [address] 7t [place] [address] Care Team Providers Care Military Technology Specialist Name Role Phone Mackenzie Estrada MD Primary Care Provider [phone] Encounter Details Date Type Department Care Team (Late st Contact Info) Description 04/10/2024 Orders Only [facility] [address] [place], [place] [phone] Mackenzie Estrada MD [address] [place], [place] [phone] Social History Tobacco Use Types Packs/Day Years [...] 10/11/2024 1:00 PM EDT Office Visit [facility] OPT[facility]ETRY [address] [place], [place] [phone] Libra Linder, OD [address] [place] [address] 11/06/2024 9:45 AM EDT Office Visit [facility] [address] [place] [address] 12/28/2024 9:45 AM EDT Office Visit [facility] [address] [place] [address] Mackenzie Estrada MD [address] [place] [address] documented as of this encounter Goals Goal Patient Goal Type Associated Problems Recent Progress Patient-Stated? Author Quit using tobacco (cigarettes, smokeless, etc) Tobacco Use No Corey Lin, PharmD documented as of this encounter Visit Diagnoses Not on filedocumented in this encounter Care Teams Military Technology Specialist Relationship Specialty Start Date End Date Mackeznie Estrada MD [address] [place], [place] [phone] PCP - General Family Medicine 07/10/20 documented as of this encounter
--- OUTSIDE RECORDS SUMMARY | 2024-10-03 12:48 | XMS_ITS | Clinical Summary ---
Author Organization [employer] Address [address] [facility] [address] [place] [address] Care Team Providers Care Service Station Equipment Mechanic Name Role Phone Mackenzie Estrada MD Primary Care Provider [phone] Allergies Active Allergy Reactions Criticality Noted Date Comments Round O (Diagnostic) 05/23/2020 Round O Oil Anaphylaxis High 07/19/2022 Morphine 06/02/2015 Other [...] mouth in the morning. 05/26/20 22 Active Sharps Container (GUARDIAN Sharps Boat Canvas Maker Installer) misc 06/15/20 22 Active Vitamin D High Potency 25 MCG (1000 UT) capsule Take 25 mcg by mouth in the morning. 12/11/19 23 Active beta carotene (vitamin A) 3 MG (62047 UT) capsule Take by mouth in the morning. 12/22/19 Active albuterol (Ventolin HFA) 108 (90 Base) MCG/ACT inhalerIndicati ons:Viral upper respiratory tract infection INHALE 2 PUFFS EVERY 4 HOURS NEEDED FOR WHEEZING OR SHORTNESS OF BREATH 18 g 11 06/20/20 23 Active docusate sodium (Colace) 100 MG capsule TAKE 1 CAPSULE BY MOUTH AT BEDTIME NEEDED 90 capsule 3 03/28/20 24 Active ursodiol (Sushil) 250 MG tablet Take 1 tablet (250 mg) by mouth 2 times daily. 60 tablet 11 04/10/20 24 Active methotrexate 2.5 MG tablet TAKE 10 TABLETS BY MOUTH EVERY WEEK 02/24/20 24 Active Umeclidinium [place] (Incruse Ellipta) 62.5 MCG/ACT aerosol powderIndicatio ns:Subacute [...] EVENING 180 tablet 1 05/30/20 24 Active nitroglycerin (Nitrostat) 0.4 MG SL [...] 90 tablet 3 07/03/20 24 025 Active sertraline (Zoloft) 50 MG tablet Take 1 tablet (50 mg) by mouth Once per day. 90 tablet 3 07/03/20 24 025 Active lidocaine (Lidoderm) 5 % patch APPLY 1 PATCH TOPICALLY TO SKIN, LEAVE ON FOR 12 HOURS AND OFF FOR 12 HOURS DIRECTED 30 patch 3 08/14/19 25 Active gabapentin (Neurontin) 400 MG capsule TAKE 1 CAPSULE BY MOUTH THREE TIMES DAILY IN THE MORNING, EVENING, AND BEDTIME (TAKE 1-2 CAPSULE (S) BY MOUTH THREE TIMES DAILY -EXTRA IN VIAL FOR NEEDED) 120 capsule 6 09/07/19 25 Active cetirizine (ZyrTEC) 10 MG tablet TAKE 1 TABLET BY MOUTH EVERY MORNING FOR EAR PAIN 90 tablet 3 09/18/19 25 Active oxyCODONE-aceta minophen (Percocet) 7.5-325 MG tabletIndicatio ns:Osteonecrosi s of hip with collapse of femoral head present on x-ray ([facility]/HCC) Take 1 tablet by mouth every 8 (eight) hours if needed for severe pain for up to 28 days. 84 tablet 09/19/19 25 025 Active famotidine (Pepcid) 20 MG tabletIndicatio ns:Gastroesopha geal reflux disease with hiatal hernia TAKE 1 TABLET BY MOUTH TWICE DAILY AT NOON AND IN THE EVENING 180 tablet 3 09/25/19 25 Active Diclofenac Sodium 1 % gelIndications: Chronic low back pain, unspecified back pain laterality, unspecified whether sciatica present apply 2 gram by topical route 4 times every day as needed for hand pain 50 g 2 09/28/19 25 Active mupirocin (Bactroban) 2 % ointmentIndicat ions:Rheumatoid arthritis involving multiple sites with positive rheumatoid factor ([facility]) Apply topically 3 times daily for 10 days. 22 g 09/28/19 25 025 Active clopidogrel (Plavix) 75 MG tabletIndicatio ns:NSTEMI (non-ST elevated myocardial infarction) ([facility]) Take 1 tablet (75 mg) by mouth Once per day. 90 tablet 3 09/28/19 25 026 Active Compound W 17 % external solution APPLY TO THE AFFECTED AREA(S) TWICE DAILY FOR FOURTEEN DAYS 03/10/20 22 025 Discontinued(Th erapy completed) Ascorbic Acid (vitamin C) 500 MG tablet TAKE 2 TABLETS BY MOUTH ONCE DAILY IN THE MORNING 12/22/19 23 025 Discontinued(Th erapy completed) fluticasone (Flonase) 50 MCG/ACT nasal sprayIndication s:Viral upper respiratory tract infection USE 2 SPRAYS IN EACH NOSTRIL EVERY MORNING 48 g 06/22/20 23 025 Discontinued( erapy completed) cetirizine (ZyrTEC) 10 MG tablet TAKE 1 TABLET BY MOUTH EVERY MORNING FOR EAR PAIN 90 tablet 3 09/12/19 24 025 Discontinued famotidine (Pepcid) 20 MG tabletIndicatio ns:Gastroesopha geal reflux disease with hiatal hernia TAKE 1 TABLET BY MOUTH TWICE DAILY AT NOON AND IN THE EVENING 180 tablet 3 10/03/19 24 025 Discontinued gabapentin (Neurontin) 400 MG capsule TAKE 1 CAPSULE BY MOUTH THREE TIMES DAILY IN THE MORNING, EVENING, AND BEDTIME (TAKE 1-2 CAPSULE (S) BY MOUTH THREE TIMES DAILY -EXTRA IN VIAL FOR NEEDED) 120 capsule 6 01/06/20 025 Discontinued lidocaine-prilo елена (Emla) 2.5-2.5 % creamIndication s:Bilateral elbow joint pain,Infection of elbow (CMS/HCC) Apply topically Every 8-12 hours as needed for mild pain or moderate pain. Do not apply to open wounds 30 g 06/11/20 24 025 Discontinued( erapy completed) clopidogrel (Plavix) 75 MG tablet Take 1 tablet (75 mg) by mouth Once per day. 90 tablet 3 07/03/20 025 Discontinued(Re order (will not trigger notification to Pharmacy)) nicotine polacrilex (Nicorette) 4 MG gum Chew 1 each (4 mg) if needed for smoking cessation. 100 each 07/03/20 24 025 Discontinued( erapy completed) nicotine (Nicoderm CQ) 14 MG/24HR patch Place 1 patch on the skin 1 (one) time each day at the same time. 30 patch 07/03/20 24 025 Discontinued( erapy completed) abatacept (Orencia) 125 MG/ML injectionIndica tions:Rheumatoi d Arthritis Inject 125 mg under the skin 1 (one) time per week. 025 Discontinued( erapy completed) neomycin-bacitr acin-polymyxin (Neosporin) 5-400-5000 ointment Apply topically 3 times daily. 3.5 g 2 07/20/20 24 025 Discontinued(Th erapy completed) Diclofenac Sodium 1 % gel apply 2 gram by topical route 4 times every day as needed for hand pain 50 g 2 08/14/19 25 025 Discontinued(Re order (will not trigger notification to Pharmacy)) oxyCODONE-aceta minophen (Percocet) 7.5-325 MG tabletIndicatio ns:Osteonecrosi s of hip with collapse of femoral head present on x-ray (CMS/HCC) Take 1 tablet by mouth every 8 (eight) hours if needed for severe pain for up to 28 days. Do not start before August 23, 2024. 84 tablet 08/23/19 25 025 Discontinued(Re order (will not trigger notification to Pharmacy)) oxyCODONE-aceta minophen (Percocet) 7.5-325 MG tabletIndicatio ns:Osteonecrosi s of hip with collapse of femoral head present on x-ray (CMS/HCC) Take 1 tablet by mouth every 8 (eight) hours if needed for severe pain for up to 28 days. Do not start before September 20, 2024. 84 tablet 09/20/19 25 025 Discontinued(Re order (will not trigger notification to Pharmacy)) Active Problems Problem Noted Date Diagnosed Date Long-term current use of opiate analgesic 2024 Overview (09/28/2024): Medication: Percocet 7.5/325mg, increasing to every 6 hours prn at 09/2024 refill Indication: Rheumatoid arthritis Last [employer] Agreement: 06/12/24 Tier: II (Q3 months visits), Dr. Estrada 08/15/24 Assessment & Plan (09/28/2024 8:21 AM EST): Has Narcan at home [employer] agreement UTD Seeing group pain visits for [employer] Assessment & Plan (09/11/2024 5:03 PM EST): [...] for cardio rehab. Advised to quit smoking. Periodontal disease 03/01/2024 Rheumatoid arthritis involvi ng right hand with positive rheumatoid factor 01/26/2024 Overview (08/14/2024): - Following with [facility] Rheum: Dr. Castro Assessment & Plan (01/26/2024 [...] to go back to her previous dose, [employer] nurse informed about my plan, I instructed to book a sooner appointment with rheumatology to re-evaluate her case Inflammatory arthritis 01/26/2024 Osteonecrosis of hip with co llapse of femoral head present on x-ray 01/02/2024 Assessment & Plan (05/02/2024 10:53 AM EDT): Avoid prednisone to the greatest extent possible Class 1 obesity with serious comorbidity and body mass index (BMI) of 33.0 to 33.9 in adult 09/28/2023 Chronic lower back pain 09/16/2023 Leg pain, [...] -Pt scheduled for first rituximab infusion 03/10/23. 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 Acute deep vein thrombosis ( DVT) of tibial vein of right lower extremity 01/29/2022 Assessment & Plan (06/25/2023 7:11 AM EST): Continue Apixaban 5mg BID indefinitely Leg edema 12/05/2020 History of DVT (deep vein thrombosis) 05/23/2020 Overview (09/28/2023): 01/2005 Right Subclavain assisted current use of anticoagulant 0 Personal history of Hodgkin lymphoma 05/09/2020 Axillary lymphadenopathy 05/09/2020 Acute deep vein thrombosis ( DVT) of brachial vein of right upper extremity 03/07/2020 Lymphadenopathy, generalized 03/07/2020 Migraine without status migrainosus, not intract able 12/06/2017 Paresthesia and pain of left extremity 8 Gastroesophageal reflux disease 06/03/2017 Rheumatoid arthritis involving multiple sites Overview (09/11/2024): - Following with [facility] Rheumatoloy Assessment & Plan (09/28/2024 8:20 AM EST): Uncontrolled, active disease, high ESR Orencia providing better control in terms of synovitis Pain is severe Disability is severe, limited mobility and exercise tolerance Will re-order hospital bed and scooter evaluation Mupirocin for ear nodules BID x 7 days Diclofenc gel for wrist and hand pain Assessment & Plan (09/11/2024 5:02 PM EST): [...] EDT): Primarily managed by Rheum at [facility] Continue to take Oulimiant 2mg, Methotrexate 20mg [...] sent for rheumatoid nodules Absolute anemia 06/03/2017 Lymphadenopathy of left cervical region 06/03/20 17 Recurrent major depressive disorder, in remissio n 06/03/2017 Mediastinal lymphadenopathy 10/24/2012 Fatigue 08/09/2012 Goiter 08/09/2012 Cobalamin deficiency 04/19/2012 Galactorrhea not associated with [...] regarding gradual reintroduction of other psychoactive meds. 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 Tx: Percocet 7.5mg three times daily COVID-19 09/16/2023 09/28/2024 Assessment & Plan (09/16/2023 12:44 PM EST): Pt has multiple risk factors including obesity,SLE,RA,DVT hx,hx of tobacco use,hx of lymphoma who tested positive for COVID 19 today and within window for tx with symptoms Pt is not a candidate for paxlovid due to possible interactions w her current meds and molnupiravir is not as effective -I spoke today with [facility] staff today ( Shahla) and confirmed they do have remdesivir which will be the best options for tx for this pt , ER at [facility] are expecting pt for evaluation. Also [...] ambulance were called and handed this note Rheumatoid arthritis flare 01/18/2023 0 09/28/2024 Assessment & Plan (07/12/2024 12:17 PM EST): [...] week as per Rheumatology. Rx sent to [facility] and they will continue refill for [...] 10mg until she sees rheumatology Check labs Cellulitis of axilla 07/03/2022 025 Straining during bowel movements 07/03/2022 09/28/2024 Arthritis, senescent 06/03/2017 025 Psychoactive substance use disorder 05/04/2012 09/28/2024 Encounters * This document contains information received from the source organization and may not represent a complete record from that organization. Date Type Department Care Team Description 10/02/2024 Telephone [facility] [address] [place] [address] Mackenzie Estrada MD 10/01/2024 Telephone [facility] [address] [place], [place] [phone] Libra Linder OD 09/24/2024 3:15 PM EST Office Visit [facility] [address] [place] [address] Mackenzie Estrada MD Rheumatoid arthritis involving multiple sites with positive rheumatoid factor ([facility]) (Primary Dx); Dietary counseling; Exercise counseling; Class 1 obesity with serious comorbidity and body mass index (BMI) of 33.0 to 33.9 in adult, unspecified obesity type; Nodular sclerosis Hodgkin lymphoma of lymph nodes of multiple regions ([facility]); NSTEMI (non-ST elevated myocardial infarction) ([facility]); 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 ([facility]); Class 1 obesity; Chronic low back pain, unspecified back pain laterality, unspecified whether sciatica present; Long-term current use of opiate analgesic; Screening mammogram for breast cancer 09/24/2024 Travel 09/24/2024 Refill [facility] [address] [place] [phone] Mackenzie Estrada MD Gastroesophageal reflux disease with hiatal hernia 09/19/2024 Refill [facility] [address] [place] [phone] Kaylene Samano RN 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 ([facility]) 09/18/2024 Refill [facility] [address], [place] [phone] Mackenzie Estrada MD 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 ([facility]) 09/17/2024 Refill [facility] [address] [place] [address] Mackenzie Estrada MD 09/14/2024 Orders Only [facility] External Provider, [facility] 09/11/2024 9:45 AM EST Office Visit [facility] [address] [place] [phone] Sisi Kennedy FNP Rheumatoid arthritis involving multiple sites with positive rheumatoid factor ([facility]) (Primary Dx); Long-term current use of opiate analgesic 09/11/2024 Travel 09/10/2024 Patient Outreach [facility] [address] [place] [phone] Mackenzie Estrada MD Care Coordination ([facility] outreach for SDOH PT-1 and food needs-referral completed /) 09/10/2024 Patient Outreach [address] [phone] Mackenzie Estrada MD Pre-visit Planning (SDOH screening negative and tobacco screening negative) 09/07/2024 Refill [facility] [address] [place] [phone] Mackenzie Estrada MD 08/22/[address] [address] Mackenzie Estrada MD 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 ([facility]/HCC) 08/19/[address] [address] Mackenzie Estrada MD 08/16/[address] [address] Hanny Lacy [place] Appointment Request 08/15/2024 Telephone [facility] [address] [place], [place] [phone] Mackenzie Estrada MD Durable Medical Equipment (10 In 1 pillow ) 08/14/2024 9:45 AM EST Office Visit [address] [phone] Sisi Kennedy FNP Long-term current use of opiate analgesic (Primary Dx); 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 ([facility]/HCC); Inflammatory arthritis 08/14/2024 Travel 07/27/2024 Orders Only GENERIC EXTERNAL DATA DEPARTMENT Provider, Generic External Data 07/26/[address] [address] Mackenzie Estrada MD 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 ([facility]/HCC) 07/20/2024 10:15 AM EST Office Visit [address] [address] Mark Yang MD Ear pain, bilateral (Primary Dx) 07/20/[address] [address] Mackenzie Estrada MD 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 (CMS/HCC) 07/20/2024 Travel 07/20/2024 Refill [facility] [address] [place] [phone] Mackenzie Estrada MD 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 ([facility]) 07/20/2024 Telephone [facility] [address] [place] [phone] Mackenzie Estrada MD Nurse Triage 07/12/2024 10:40 AM EST Office Visit [facility] [address] [place] [phone] Kat Yo MD Rheumatoid arthritis flare ([facility]) (Primary Dx); Right hip pain; Pain and swelling of left wrist; 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 ([facility]); Inflammatory arthritis 07/12/2024 Telephone [facility] [address] [place] [phone] Mackenzie Estrada MD Nurse Triage 07/12/2024 Orders Only [facility] External Provider, [facility] 07/09/2024 Patient Outreach [facility] [address], [place] [phone] Mackenzie Estrada MD Transition Of Care (Tcm); Error (VOID this visit) 07/09/2024 Telephone [facility] [address], [place] [phone] Mackenzie Estrada MD Error (VOID this visit) 07/09/2024 Patient Outreach [facility] [address] [place] [phone] Mackenzie Estrada MD Transition Of Care (Tcm) 07/08/2024 Orders Only GENERIC EXTERNAL DATA DEPARTMENT Provider, Generic External Data from Last 3 Months Immunizations Name Administration [...] Sign Reading Time Taken Comments Blood Pressure 129/74 09/24/2024 2:44 PM EST Pulse 84 09/24/2024 2:44 PM EST Temperature 36.4 ??C (97.5 ??F) 09/24/2024 2:44 PM ES T Respiratory Rate 18 09/24/2024 2:44 PM EST Oxygen Saturation 98% 07/20/2024 10:26 AM EST Inhaled Oxygen Concentration - - Weight 83.7 kg (184 lb 9.6 oz) 09/24/2024 2:44 P M EST Height 157.5 cm (5' 2 ) 09/24/2024 2:44 PM EST Body Mass Index 33.76 09/24/2024 2:44 PM EST Plan of Treatment Upcoming Encounters Date Type Department Care Team (Late st Contact Info) Description 10/11/2024 1:00 PM EDT Office Visit [facility] [address] [place] [address] Kailash, Libra, OD [address] [place] [address] 11/06/2024 9:45 AM EDT Office Visit [facility] [address] [place] [address] 12/28/2024 9:45 AM EDT Office Visit [facility] [address] [place] [phone] Mackenzie Estrada MD [address] [place] [address] Health Maintenance Due Date Last Done Comments CT Colonography 1976 Dental Prophylaxis 1976 FIT DNA/Cologuard 1976 FIT 1976 FOBT 1975 Sigmoidoscopy 1976 Alcohol/Substance Use Screening 1988 Zoster Vaccines (1 of 2) 1995 Hepatitis [...] 2024 , 05/13/2021, 07/05/2018, Additional history exists Dental X-Ray: Bitewings 01/20/2025 01/20/20 24, 01/27/2021, 04/19/2016 Depression Screening 04/30/2025 04/30/2024, 04/30/20 24 SDOH Screening 09/10/2025 09/10/2024 Family Planning (PISQ) 09/28/2025 09/28/2024 Tobacco Screening 09/28/2025 09/28/2024 Lipid Panel 09/14/2026 09/14/2021 DTaP/Tdap/Td Vaccines (2 - Td or Tdap) [...] etc) Tobacco Use No Corey Lin PharmD Procedures Procedure Name Priority Date/Time Associated Diagnosis Comments XR ELBOW 3+ VIEWS LEFT Routine 8:07 AM EST XR SCAPULA LEFT Routine 09/15/2024 8:04 AM EST XR HUMERUS LEFT Routine 09/15/2024 8:00 AM EST POCT GALLO-14 URINE DRUG SCREEN Routine 09/11/2024 [...] GENERIC Routine 10/09/2021 12: 05 PM EST LIPID PANEL, STANDARD Routine 09/14/2021 2:52 PM EST INTRAORAL - COMPLETE SERIES OF RADIOGRAPHIC IMAGES Routine 01/27/2021 12:00 AM EDT COMPREHENSIVE ORAL EVALUATION - NEW OR ESTABLISHED PATIENT Routine 01/27/2021 12:00 AM EDT HM COLONOSCOPY Routine 10/28/2017 from Last 3 Months or Most Recently Relevant to Health Maintenance Results * XR Elbow 3+ Views Left (09/15/2024 8:07 AM EST) Anatomical Region Laterality Modality Upper Extremities, Elbow Left Radiogr aphic Imaging 09/15/2024 8:07 AM EST Narrative 09/15/2024 8:09 AM EST ? [facility] ? [address] ?[place] [address] ?XRay Report ? Signed ? Patient: Ovidio Lacy,Ginette ?MR ?? #: [id number] ? : 1975 ?Acct:[id number] ? Age/Sex: 49 / F ?ADM Date: 02/14/25 ? Loc: HO.HOSX ? Attending Dr: Madonna Melara MD ? Ordering Physician: Madonna Bonilla ?? Date of Service: 09/14/24 ?? Procedure(s): XR elbow LT min 3V ?? Accession Number(s): [id number] ? cc: Mackenzie Estrada; Madonna Bonilla ? CLINICAL HISTORY: M79.7 - Fibromyalgia ? 3 view left elbow ? Comparison: CR/SR - XR ELBOW LT MIN 3V - 06/12/2024 11:50 AM EST ? Findings: ?? Bones intact. No dislocations. ?? No significant arthritic change or erosions. ?? No joint effusion. ?? No radiopaque foreign body. ? IMPRESSION: ?? 1. No acute findings ? This document has been electronically signed by: Arturo Woodson MD on ?? 09/15/2024 08:07:42 ? Dictated By: ?Arturo Woodson MD ? Signed By: ?<Electronically signed by Arturo Woodson MD in OV> ?09/15/24 0808 ? DD/ 6 ? TD/TT: 09/15/24806 ? Stable Hand: ? Procedure Note Donshantelter, Image - 09/15/2024 [facility] [address] [place] [address] [address] [place] [address] XRay Report Signed Patient: Maximo Arceo #: [id number] : 1975Acct:[id number] Age/Sex: 49 / FADM Date: 09/14/24 Loc: [facility] Attending Dr: Madonna Melara MD Ordering Physician: Madonna Bonilla Date of Service: 09/14/24 Procedure(s): XR elbow LT min 3V Accession Number(s): [id number] cc: Chiquita Estrada CLINICAL HISTORY: M79.7 - Fibromyalgia 3 view left elbow Comparison: CR/SR - XR ELBOW LT MIN 3V - 06/12/2024 11:50 AM EST Findings: Bones intact. No dislocations. No significant arthritic change or erosions. No joint effusion. No radiopaque foreign body. IMPRESSION: 1. No acute findings This document has been electronically signed by: Arturo Woodson MD on 09/15/2024 08:07:42 Dictated By: Arturo Woodson MD Signed By: <Electronically signed by Arturo Woodson MD in OV> 09/15/24807 DD/ 6 TD/TT: 09/15/24806 Stable Hand: [facility] External Provider IMG XR PROCEDURES Edited Result - Final * XR Scapula Left (09/15/2024 8:04 AM EST) Anatomical Region Laterality Modality Body, Scapula Left Radiographic Rin ging 09/15/2024 8:04 AM EST Narrative 09/15/2024 8:06 AM EST ? [facility] ? [address] ?[place] [address] ?XRay Report ? Signed ? Patient: Ovidio Lacy,Ginette ?MR ?? #: [id number] ? : 1975 ?Acct:[id number] ? Age/Sex: 49 / F ?ADM Date: 09/14/24 ? Loc: HO.HOSX ? Attending Dr: Madonna Melara MD ? Ordering Physician: Madonna Bonilla ?? Date of Service: 09/14/24 ?? Procedure(s): XR scapula LT ?? Accession Number(s): [id number] ? cc: Mackenzie Estrada; Madonna Bonilla ? CLINICAL HISTORY: M79.7 - Fibromyalgia ? 2 view left scapula ? Comparison: None ? Findings: ?? No fractures or dislocations. ?? No significant loss of joint space or osteophytes. ?? No erosions. No radiopaque foreign body. ? IMPRESSION: ?? 1. No acute findings ? This document has been electronically signed by: Arturo Woodson MD on ?? 09/15/2024 08:04:58 ? Dictated By: ?Arturo Woodson MD ? Signed By: ?<Electronically signed by Arturo Woodson MD in OV> ?09/15/24 0805 ? DD/ 0804 ? TD/TT: 09/15/24 0804 ? Stable Hand: ? Procedure Note Lorin, Image - 09/15/2024 [facility] [address] [place] [address] [address] [place] [address] XRay Report Signed Patient: Ginette Arceo #: [id number] : 1975Acct:[id number] Age/Sex: 49 / FADM Date: 09/14/24 Loc: [facility] Attending Dr: Madonna Melara MD Ordering Physician: Madonna Bonilla Date of Service: 09/14/24 Procedure(s): XR scapula LT Accession Number(s): [id number] cc: Mackenzie Estrada; Madonna Bonilla CLINICAL HISTORY: M79.7 - Fibromyalgia 2 view left scapula Comparison: None Findings: No fractures or dislocations. No significant loss of joint space or osteophytes. No erosions. No radiopaque foreign body. IMPRESSION: 1. No acute findings This document has been electronically signed by: Arturo Woodson MD on 09/15/2024 08:04:58 Dictated By: Arturo Woodson MD Signed By: <Electronically signed by Arturo Woodson MD in OV> 09/15/24 0805 DD/ 0804 TD/TT: 09/15/24 0804 Stable Hand: [facility] External Provider IMG XR PROCEDURES Edited Result - Final * XR Humerus Left (09/15/2024 8:00 AM EST) Anatomical Region Laterality Modality Upper Extremities, Humerus Left Radio graphic Imaging 09/15/2024 8:00 AM EST Narrative 09/15/2024 8:02 AM EST ? [facility] ? [address] ?[place] [address] ?XRay Report ? Signed ? Patient: Ovidio Lacy,Ginette ?MR ?? #: [id number] ? : 1975 ?Acct:[id number] ? Age/Sex: 49 / F ?ADM Date: 02/14/25 ? Loc: HO.HOSX ? Attending : Madonna Melara MD ? Ordering Physician: Madonna Bonilla ?? Date of Service: 09/14/24 ?? Procedure(s): XR humerus LT ?? Accession Number(s): [id number] ? cc: Mackenzie Estrada; Madonna Bonilla ? CLINICAL HISTORY: M79.7 - Fibromyalgia ? 3 view left humerus ? Comparison: None ? Findings: ?? No fractures or dislocations. ?? No significant arthritic change. No radiopaque foreign body. ? IMPRESSION: ?? 1. Normal left humerus ? This document has been electronically signed by: Arturo Woodson MD on ?? 09/15/2024 08:00:53 ? Dictated By: ?Arturo Woodson MD ? Signed By: ?<Electronically signed by Arturo Woodson MD in OV> ?09/15/24 0801 ? DD/ 0800 ? TD/TT: 09/15/24 0800 ? Stable Hand: ? Procedure Note Donrere, Image - 09/15/2024 [facility] [address] [place] [address] XRay Report Signed Patient: Ginette ArceoMR #: [id number] : 1975Acct:[id number] Age/Sex: 49 / FADM Date: 09/14/24 Loc: HO.COURTNEYX Attending Dr: Madonna Melara MD Ordering Physician: Madonna Bonilla Date of Service: 09/14/24 Procedure(s): XR humerus LT Accession Number(s): [id number] cc: Mackenzie Estrada; Madonna Bonilla CLINICAL HISTORY: M79.7 - Fibromyalgia 3 view left humerus Comparison: None Findings: No fractures or dislocations. No significant arthritic change. No radiopaque foreign body. IMPRESSION: 1. Normal left humerus This document has been electronically signed by: Arturo Woodson MD on 09/15/2024 08:00:53 Dictated By: Arturo Woodson MD Signed By: <Electronically signed by Arturo Woodson MD in OV> 09/15/24 0801 DD/ 08 TD/TT: 09/15/24 08 Stable Hand: us [facility] External Provider IMG XR PROCEDURES Edited Result - Final * POCT GALLO-14 Urine Drug Screen (09/11/2024 2:01 PM EST) Only the most recent of2 resultswithin the time period is included. THC Positive Benzodiazepines Screen, Urine Positive Oxycodone Screen, Urine Positive Urine Urine specimen obtained by clean catch procedure / Unknown 09/11/2024 2:01 PM EST Narrative Coral Somers, RN - 09/11/2024 2:01 PM EST .UTOX cup Lot#[id number] Exp. 04/25/26 Internal Pass Control us Sisi Kennedy WAX COATING MACHINE TENDER POINT OF CARE TEST ENTER/EDIT ORDERABLES Final Result * XR Clavicle Left (07/27/2024 7:24 AM EST) Anatomical Region Laterality Modality Body, Clavicle Left Radiographic Rin ging 07/27/2024 7:24 AM EST Narrative 07/27/2024 9:09 AM EST ? [facility] ?[address] ?[place] [address] ?XRay Report ? Signed ? Patient: Ovidio Hamma,Ginette ?MR ?? #: [id number] ? : 1975 ?Acct:[id number] ? Age/Sex: 49 / F ?ADM Date: 07/27/24 ? Loc: HO.ED ? Attending Dr: ? Ordering Physician: Jana Mcdaniel ?? Date of Service: 07/27/24 ?? Procedure(s): XR clavicle LT ?? Accession Number(s): [id number] ? cc: Mackenzie Estrada; Jana Mcdaniel ? [...] Mondragon MD in OV> ?07/27/24 0905 ? DD/DT: //24 0724 ? TD/TT: 07/27/24 0734 ? Stable Hand: ? Procedure Note Donotuseinterpreter, Image - 07/27/[address] [address] XRay Report Signed Patient: Ginette ArceoMR #: [id number] : 1975Acct:[id number] Age/Sex: 49 / FADM Date: 07/27/24 Loc: HO.ED Attending Dr: Ordering Physician: Jana Mcdaniel Date of Service: 07/27/24 Procedure(s): XR clavicle LT Accession Number(s): [id number] cc: Mackenzie Estrada; Jana Mcdaniel EXAMINATION: XR [...] Mondragon MD in OV> 07/27/24 0905 DD/ 0724 TD/TT: 07/27/24 0734 Stable Hand: [facility] External Provider IMG XR PROCEDURES Final Result * XR Shoulder 2+ Views Left (07/27/2024 7:20 AM EST) Anatomical Region Laterality Modality Upper Extremities, Shoulder Left Radi ographic Imaging 07/27/2024 7:20 AM EST Narrative 07/27/2024 9:11 AM EST ? [facility] ?[address] ?[place] [address] ?XRay Report ? Signed ? Patient: Ovidio Lacy,Ginette ?MR ?? #: [id number] ? : 1975 ?Acct:[id number] ? Age/Sex: 49 / F ?ADM Date: 12/27/24 ? Loc: HO.ED ? Attending Dr: ? Ordering Physician: Jana Mcdaniel ?? Date of Service: 07/27/24 ?? Procedure(s): XR shoulder LT min 2V ?? Accession Number(s): [id number] ? cc: Mackenzie Estrada; Jana Mcdaniel ? [...] DD/ 0720 ? TD/TT: 07/27/24 0734 ? Stable Hand: ? Procedure Note Deepa Padgett - 07/27/[address] [address] XRay Report Signed Patient: Ginette ArceoMR #: [id number] : 1975Acct:[id number] Age/Sex: 49 / FADM Date: 07/27/24 Loc: HO.ED Attending Dr: Ordering Physician: Jana Mcdaniel Date of Service: 07/27/24 Procedure(s): XR shoulder LT min 2V Accession Number(s): [id number] cc: Mackenzie Estrada; Jana Mcdaniel EXAMINATION: XR [...] 07/27/24 0909 DD/ 0720 TD/TT: 07/27/24 0734 Stable Hand: [facility] External Provider IMG XR PROCEDURES Final Result * XR Chest 2 Views (07/27/2024 7:20 AM EST) Anatomical Region Laterality Modality Chest Radiographic Rin ging 07/27/2024 7:20 AM EST Narrative 07/27/2024 9:10 AM EST ? [facility] ?[address] ?[place] [address] ?XRay Report ? Signed ? Patient: Ovidio Lacy,Ginette ?MR ?? #: [id number] ? : 1975 ?Acct:[id number] ? Age/Sex: 49 / F ?ADM Date: 12/27/24 ? Loc: HO.ED ? Attending Dr: ? Ordering Physician: Jana Mcdaniel ?? Date of Service: 07/27/24 ?? Procedure(s): XR chest 2V ?? Accession Number(s): [id number] ? cc: Mackenzie Estrada; Jana Mcdaniel ? [...] MD in OV> ?07/27/24 0906 ? DD/ ? TD/TT: 07/27/2434 ? Stable Hand: ? Procedure Note Deepa Padgett - 07/27/2024 [place] [address] XRay Report Signed Patient: Ginette ArceoMR #: [id number] : 1975Acct:[id number] Age/Sex: 49 / FADM Date: 07/27/24 Loc: HO.ED Attending Dr: Ordering Physician: Jana Mcdaniel Date of Service: 07/27/24 Procedure(s): XR chest 2V Accession Number(s): [id number] cc: Mackenzie Estrada; Jana Mcdaniel EXAMINATION: XR [...] signed by Arian Mondragon MD in OV> 07/27/2406 DD/ 9 TD/TT: 07/27/24733 Stable Hand: [facility] External Provider IMG XR PROCEDURES Final Result * High Sensitivity Troponin I (07/27/2024 1:09 AM EST) Only the most recent of2 resultswithin the time period is included. [facility] TROPONIN I HIGH SENSITIVITY <2.7 <3.5 - 17.0 ng/L [facility] Comment:The Shea high sens itivity Troponin-I results should beused in conjunction with other diagnostic information suchas ECG, clinical observations and information, and patientsymptoms to aid in the diagnosis of [place]. 07/27/2024 1:09 AM EST 07/27/2024 1:19 AM EST Generic External Data Provider LAB BLOOD ORDERAB LES Final Result [facility] [address] [place] [phone] * (ABNORMAL) CBC auto differential (07/27/2024 1:09 AM EST) [facility] White Blood Count 4.9 4.8 - 10.8 X10*3/uL [facility] Red Blood Count 3.62(L) 4.20 - 5.50 X10*6/uL [facility] Hemoglobin 10.2(L) 12.0 - 16.0 g/dl [facility] Hematocrit 31.7(L) 37.0 - 47.0 % [facility] Mean Corpuscular Volume 87.6 80.0 - 98.0 fL [facility] Mean Corpuscular Hemoglobin 28.2 27.0 - 33.0 pg [facility] Mean Corpuscular HGB Conc 32.2 31.0 - 35.0 g/dl [facility] Red Cell Distribution Width 14.0 11.0 - 16.0 % [facility] Platelet Count 300 160 - 400 X10*3/uL [facility] Mean Platelet Volume 10.1 9.4 - 12.3 fL [facility] Neutrophils Percent Auto 61.2 45 - 73 % [facility] Imm Gran Pct Auto 0.2 0.0 - 0.4 % [facility] Lymphocytes Percent Auto 29.7 20 - 40 % [facility] Monocytes Percent Auto 7.1 2 - 11 % [facility] Eosinophils Percent Auto 1.6 0 - 4 % [facility] Basophils Percent Auto 0.2 0 - 2 % [facility] NRBC Pct Auto 0.0 0.0 - 0.2 /100WBC [facility] Neutrophils Absolute Auto 3.0 2.0 - 8.3 x10*3/uL [facility] Imm Gran Abs Auto 0.01 0.00 - 0.03 X10*3/uL [facility] Lymphocytes Absolute Auto 1.5 1.2 - 4.9 X10*3/uL [facility] Monocytes Absolute Auto 0.4 0.1 - 1.2 X10*3/uL [facility] Eosinophils Absolute Auto 0.1 0.0 - 0.4 X10*3/uL [facility] Basophils Absolute Auto 0.0 0.0 - 0.2 X10*3/uL [facility] NRBC Abs Auto 0.000 0.0 - 0.012 X10*3/uL [facility] 07/27/2024 1:09 AM EST 07/27/2024 1:19 AM EST us Generic External Data Provider LAB BLOOD ORDERAB LES Final Result Performing Organization Address City/State/[facility] Co de Phone Number [facility] [address] [place] [phone] * (ABNORMAL) Comprehensive Metabolic Panel (07/27/2024 1:09 AM EST) Sodium 140 135 - 145 mmol/L [facility] Potassium 3.1(L) 3.3 - 5.1 mmol/L [facility] Chloride 105 96 - 108 mmol/L [facility] Carbon Dioxide 23 22 - 29 mmol/L [facility] Anion Gap 15 12 - 20 [facility] Urea Nitrogen (BUN) 11 9 - 16 mg/dL [facility] Creatinine, Serum 0.73 0.5 - 1.4 mg/dL [facility] Creatinine Clr Calc Pharmacy 98.5 [facility] Comment:Provided height and weight: 162.56 cm,83.5 kg.eGFR (calculated from the MDRD study equation) and eCrCl(calculated from the Cockcroft-Gault equation) are based ondifferent parameters and may not yield comparable results.If eCrCl result is absurd, please check patient'sheight/weight. Estimated Glomerular Filt Rate >60 [facility] Comment:Chronic Kidney Disea se: Estimated GFR < 60 mL/min/1.49e9Qiotdx Kidney Disease: Estimated GFR < 15 mL/min/1.73m2 Glucose 107 60 - 115 mg/dL [facility] Calcium 9.2 8.4 - 10.2 mg/dL [facility] Bilirubin, Total 0.5 0.0 - 1.0 mg/dL [facility] Aspartate Amino Transferase 48(H) 5 - 31 U/L [facility] Alanine Aminotransferase 32(H) 0 - 31 U/L [facility] Total Protein 8.5(H) 6.5 - 8.0 g/dL [facility] Albumin Level 3.7 3.5 - 5.0 g/dL [facility] Alkaline Phosphatase 151(H) 39 - 117 U/L [facility] 07/27/2024 1:09 AM EST 07/27/2024 1:19 AM EST us Generic External Data Provider LAB BLOOD ORDERAB LES Final Result [facility] [address] [place] [address] [phone] * XR Hip 2 or 3 Views Right (07/12/2024 3:30 AM EST) Anatomical Region Laterality Modality Lower Extremities, Hip Right Radiograp hic Imaging 07/12/2024 3:30 AM EST Narrative 07/12/2024 4:26 AM EST ? [facility] ?[address] ?[place] [address] ?XRay Report ? Signed ? Patient: Ovidio Lacy,Ginette ?MR ?? #: [id number] ? : 1975 ?Acct:[id number] ? Age/Sex: 48 / F ?ADM Date: 07/12/24 ? Loc: HO.ED ? Attending Dr: ? Ordering Physician: Megan Pathak DO ?? Date of Service: 07/12/24 ?? Procedure(s): XR hip RT min 2V ?? Accession Number(s): [id number] ? cc: Megan Pathak DO; [facility] ? EXAMINATION: ?? XR HIP, RIGHT [...] right thigh coursing beyond the image ?? [id number]. Surgical clip is projected over the left [...] in OV> ? 07/12/24 0422 ? DD/ ? TD/TT: 07/12/24 0350 ? Stable Hand: NICOLE ? Procedure Note Donotwilmarinterpreter, Image - 07/12/[address] [address] XRay Report Signed Patient: Ginette ArceoMR #: [id number] : 1975Acct:[id number] Age/Sex: 48 / FADM Date: 07/12/24 Loc: HO.ED Attending Dr: Ordering Physician: Megan Pathak DO Date of Service: 07/12/24 Procedure(s): XR hip RT min 2V Accession Number(s): [id number] cc: Megan Pathak DO; [facility] EXAMINATION: XR HIP, RIGHT CLINICAL INFORMATION: [...] the right thigh coursing beyond the image [id number]. Surgical clip is projected over the left lower abdominal quadrant. XR/XR hip RT min 2V IMPRESSION: *No acute abnormalities. *Partially visualized endovascular stent within the right thigh. *Normal appearance of the right hip. No arthropathic changes. Electronically signed by: Monty Alvarez MD 07/12/2024 04:22 AM EST Dictated By: Monty Alvarez MD Signed By: <Electronically signed by Monty Alvarez MD in OV> 07/12/24421 DD/ 0330 TD/TT: 07/12/24 0350 Stable Hand: NICOLE [facility] External Provider IMG XR PROCEDURES Edited Result - Final * Hepatitis C Ab (04/11/2024 10:26 AM EDT) Hepatitis C Antibody Nonreactive Nonreactive [facility] Comment:Antibodies to HCV no t detected; does not exclude early acuteHCV infection. Blood Venous blood specimen / Unknown 04/11/2024 10:26 AM EDT 04/11/2024 11:19 AM EDT Mackenzie Estrada MD LAB BLOOD ORDERABLES Final Res ult Performing Organization Address [facility]/ZIP Co de Phone Number [facility] [address] [place] [phone] [phone] * HIV-1/2 Antigen and Antibodies, Fourth Generation, with Reflexes (04/11/2024 10:26 AM EDT) Pathologist [facility] HIV AB/AG Nonreactive Nonreactive [facility] Comment:HIV-1 p24 Ag and/or HIV-1/HIV-2 Ab not detected.A test result that is nonreactive does not exclude thepossibility of exposure to or infection with HIV-1 and/orHIV-2. Nonreactive results in this assay for individualswith prior exposure to HIV-1 and/or HIV-2 may be due toantigen and antibody levels that are below the limit ofdetection of this assay.The [employer] HIV Ag/Ab Combo assay result andsupplemental assay results should be interpreted inconjunction with the patient's clinical presentation,history and other laboratory results. If the results areinconsistent with clinical evidence, additional testing issuggested to confirm the result. Blood Venous blood specimen / Unknown 04/11/2024 10:26 AM EDT 04/11/2024 11:19 AM EDT us Mackenzie Estrada MD LAB BLOOD ORDERABLES Final Res ult Performing Organization Address City/[facility]/ZIP Co de Phone Number [facility] [address] [place] [phone] [phone] * HPV mRNA E6/E7 w/Reflex to HPV Genotypes 16, 18/45 (09/29/2023 12:26 PM EST) HPV nRNA E6/E7 Not Detected Not Detected [facility] Comment:Methodology: Transcr iption-Mediated AmplificationThis assay detects E6/E7 viral messenger RNA (mRNA) from 14high-risk HPV types (16,18,31,33,35,39,45,51,52,56,58,59,66,68).Cervical sources are required for HPV testing.If a vaginal source from a patient who has had atotal hysterectomy with removal of cervix wassubmitted, please contact the testing laboratoryfor alternative testing options.For additional information, please refer tohttp://education.Modern Feed/faq/HMP799q9(This link if provided for information/educational purposes only.)THIS TEST WAS PERFORMED AT:[facility] [place] [phone] GALVAN MD HPV mRNA E6/E7 [facility] HPV 16 RNA [facility] HPV 18/45 RNA [facility] 09/29/2023 12:2 6 PM EST 09/30/2023 11:30 AM EST Mackenzie Estrada MD LAB CYTOLOGY ORDERABLES Final Result [facility] [address] [place] [phone] * Pap Smear (09/29/2023 12:26 PM EST) 09/29/2023 12:2 6 PM EST 09/30/2023 11:30 AM EST Narrative [facility] - 10/12/2023 4:18 PM EDT ----- ------- Name: Ginette Arceo ?Age/Sex: 48/F ? : 1975 Unit#: [id number] ?? Attend Dr: Mackenzie Estrada ?Re09/29/23 ?Status: DEP REF ? Location: HO.CX ? Disch: ? ----- ------- SPEC : [id number] ? RECD: 09/30/23 ? STATUS: ??SOUT ? REQ NUM: [id number] ? BHAVIN: 09/29/23-1226 ? SUBM DR: Mackenzie Estrada ? ENTERED: ??09/30/237 ?SP TYPE: Pap Smr ?OTHR DR: ? ORDERED: ??Pap Smear ? Interpretation ?? Satisfactory for evaluation. ?? Negative for intraepithelial lesion or malignancy. ?HPV mRNA E6/E7: ?NOT DETECTED ? This assay detects E6/E7 viral messenger RNA (mRNA) from 14 high-risk HPV types (16, 18, ?? 31, 33, 35, 39, 45, 51, 52, 56, 58, 59, 66, 68) ?? HPV testing performed by [facility], [place], [place]. ??See reference laboratory ?? portion of the EMR for entire report. ?Clinical Information LMP: Heavy menstrual bleeding past two weeks Previous PAP test: Unknown date/findings Other history: ? Material Received ?? ThinPrep-Cervical ----- ------- Signed (signature on file) BARB Hawley (ASCP) 10/12/23 9128 ? ----- ------- ? END OF REPORT ? us Mackenzie Estrada MD LAB CYTOLOGY ORDERABLES Final Result [facility] [address] [place] [address] [phone] * Mammography Report 1 (10/09/2021 12:05 [...] MD IMG BI PROCEDURES Final Result * (ABNORMAL) LIPID PANEL, STANDARD (09/14/2021 2:52 PM EST) Chol/HDLC Ratio 5.7(H) <5.0 (calc) [facility] Cholesterol, Total 212(H) <200 mg/dL [facility] HDL Cholesterol 37(L) > OR = 50 mg/dL [facility] LDL Cholesterol 137(H) mg/dL (calc) [facility] Comment: Reference range: <100 ?? Desirable range <100 mg/dL for primary prevention; ?? <70 mg/dL for patients with CHD or diabetic patients ?? with > or = 2 CHD risk factors. ?? LDL-C is now calculated using the Quintin ?? calculation, which is a validated novel method providing ?? better accuracy than the Friedewald equation in the ?? estimation of LDL-C. ?? Hi COELLO et al. ROXY. 2013;310(19): 8308-8339 ?? (http://education.Pharminox/faq/VED669) Non-HDL Cholesterol 175(H) <130 mg/dL (calc) [facility] Comment: For patients with diabetes plus 1 major ASCVD risk ?? factor, treating to a non-HDL-C goal of <100 mg/dL ?? (LDL-C of <70 mg/dL) is considered a therapeutic ?? option. Triglycerides 237(H) <150 mg/dL [facility] Comment: ?? If a non-fasting specimen was collected, consider repeat triglyceride testing on a fasting specimen if clinically indicated. ?? Cory ibarra al. J. of Clin. Lipidol. 2015;9:129-169. ?? 09/14/2021 2:52 PM EST us Mackenzie Estrada MD LAB BLOOD ORDERABLES Final Res ult [facility] [address] [place] [address], * Colonoscopy (10/28/2017) Colonoscopy Normal Normal Narrative Cecilia Henriquez - 10/28/2017 Recommended 10 year follow up ([facility]) us Historical Provider HEALTH MAINTENANCE Edited Result - Final from Last 3 Months or Most Recently Relevant to Health Maintenance Insurance * Guarantor: Ginette Arceo Account Type Relation to Patient Date of Phone Billing Address Personal/Family Self 1975 [address] [place] [address] [facility] C3 DENTAL-[facility] MEDICAID STAND ADULT Care Teams Service Station Equipment Mechanic Relationship Specialty Start Date End Date Mackenzie Estrada MD [address] [place] [phone] PCP - General Family Medicine 07/10/20
--- OUTSIDE RECORDS SUMMARY | 2024-10-03 12:48 | XMS_ITS | Encounter Summary ---
Author Organization [employer] Address [address]t [place] [address] Care Team Providers Care Pet Care Worker Name Role Phone Mackenzie Estrada MD Primary Care Provider [phone] Reason for Visit * Reason Comments Med Refill Encounter Details Date Type Department Care Team ([facility] Contact Info) Description 02/08/2023 Refill [facility] MEDICINE [address] [place], [place] [phone] Mackenzie Estrada MD [address] [place] [address] Pain in both hands Social History Tobacco [...] on medication oxycodone [address] Estrdaa documented in this encounter Plan of Treatment Upcoming Encounters Date Type Department Care Team (Late st Contact Info) Description 10/11/2024 1:00 PM EDT Office Visit [facility] OPTOMETRY [address] [place] [address] Kailash, Libra, OD [address] [place] [address] 11/06/2024 9:45 AM EDT Office Visit [facility] MEDICINE [address] [place] [address] 12/28/2024 9:45 AM EDT Office Visit [facility] MEDICINE [address] [place] [address] Mackenzie Estrada MD [address] [place] [address] documented as of this encounter Visit Diagnoses Diagnosis Pain in both hands documented in this encounter Care Teams Pet Care Worker Relationship Specialty Start Date End Date Mackenzie Estrada MD [address] [place] [address] PCP - General Family Medicine 07/10/20 documented as of this encounter
--- OUTSIDE RECORDS SUMMARY | 2024-10-03 12:48 | XMS_ITS | Encounter Summary ---
Author Organization [facility] Address [address] [facility] [address] [place] [address] Care Team Providers Care Power Hammer Operator Name Role Phone Mackenzie Estrada MD Primary Care Provider [phone] Reason for Visit * Reason Comments Med Refill Encounter Details Date Type Department Care Team ([facility] Contact Info) Description 12/10/[address] [facility] MED[facility]INE [address] [place], [place] [phone] Mackenzie Estrada MD [address] [place], [place] [phone] Pain in both hands Social History Tobacco [...] Upcoming Encounters Date Type Department Care Team ([facility] Contact Info) Description 10/11/2024 1:00 PM EDT Office Visit [facility] OPTOMETRY [address] [place], [place] [phone] KailashLibra damian, OD [address] [place] [address] 11/06/2024 9:45 AM EDT Office Visit [facility] MED[facility]INE [address] [place] [phone] 12/28/2024 9:45 AM EDT Office Visit [facility] MED[facility] [address] [place] [phone] Mackenzie Estrada MD [address] [place] [phone] documented as of this encounter Visit Diagnoses Diagnosis Pain in both hands documented in this encounter Care Teams Power Hammer Operator Relationship Specialty Start Date End Date Mackenzie Estrada MD [address] [place] [phone] PCP - General Family Medicine 07/10/20 documented as of this encounter
--- OUTSIDE RECORDS SUMMARY | 2024-10-03 12:48 | XMS_ITS | Encounter Summary ---
Author Organization [employer] Address [address] [place] [address] Care Team Providers Care Administrative Support Clerk Name Role Phone Mackenzie Estrada MD Primary Care Provider [phone] Reason for Visit * Reason Comments Med Refill Encounter Details Date Type Department Care Team ([facility] [address] Contact Info) Description 08/19/2024 Refill [facility] MEDICINE [address] [place], [place] [phone] Mackenzie Estrada MD [address] [place], [place] [phone] Social History Tobacco Use Types Packs/Day Years [...] 10/11/2024 1:00 PM EDT Office Visit [facility] OPTOMETRY [address] [place] [address] Kailash, Libra, OD [address] [place] [address] 11/06/2024 9:45 AM EDT Office Visit [facility] MEDICINE [address] [place] [address] 12/28/2024 9:45 AM EDT Office Visit [facility] MEDICINE [address] [place] [phone] Mackenzie Estrada MD [address] [place] [address] documented as of this encounter Goals Goal Patient Goal Type Associated Problems Recent Progress Patient-Stated? Author Quit using tobacco (cigarettes, smokeless, etc) Tobacco Use Corey Cornell, PharmD documented as of this encounter Visit Diagnoses Not on filedocumented in this encounter Additional Health Concerns Assessment Noted Time PHQ-9 Depression Total Score: 2 04/30/20 24 10:41 AM EDT documented as of this encounter Care Teams Administrative Support Clerk Relationship Specialty Start Date End Date Mackenzie Estrada MD [address] [place] [address] PCP - General Family Medicine 07/10/20 documented as of this encounter
--- OUTSIDE RECORDS SUMMARY | 2024-10-03 12:48 | XMS_ITS | Encounter Summary ---
Author Organization [employer] Address [address] [place] [address] Care Team Providers Care International Trade Manager Name Role Phone Mackenzie Estrada MD Primary Care Provider [phone] Encounter Details Date Type Department Care Team [...] Description 10/11/2024 1:00 PM EDT Office Visit [facility] OPTOMETRY [address] [place] [address] Libra Linder, OD [address] [place] [address] 11/06/2024 9:45 AM EDT Office Visit [facility] MEDICINE [address] [place] [address] 12/28/2024 9:45 AM EDT Office Visit [facility] MEDICINE [address] [place] [address] Mackenzie Estrada MD [address] [place] [address] documented as of this encounter Goals Goal [...] documented as of this encounter Care Teams International Trade Manager Relationship Specialty Start Date End Date Mackenzie Estrada MD [address] [place] [address] PCP - General Family Medicine 07/10/20 documented as of this encounter
--- OUTSIDE RECORDS SUMMARY | 2024-10-03 12:48 | XMS_ITS | Encounter Summary ---
Author Organization [employer] Address [address] [place] [address] Care Team Providers Care Call Or Contact Centre Coach Name Role Phone Mackenzie Estrada MD Primary Care Provider Encounter Details Date Type Department Care Team (Late st Contact Info) Description 09/11/2024 9:45 AM EST Office Visit [facility] MEDICINE [address] [place] [address] Sisi Kennedy FNP [address] [place], [place] [phone] Rheumatoid arthritis involving multiple sites with positive [...] the past 12 months, has t he [place], gas, oil or water [employer] threatened to shut off services in your [...] this encounter Progress Notes * Sisi Kennedy, TEST KITCHEN HOME ECONOMIST - 09/11/2024 9:45 AM EST Subjective: Ginette [...] Group Topic: Vivi - Recently following with [facility] Ortho for nodules on elbows - right olecranon soft tissue mass. Continues with pain related to RA, reports has been worsening recently. Encouraged to schedule follow up with Rheumatology (missed last appt d/t andres). Chronic Pain History: Associated Diagnosis: Rheumatoid Arthritis Following with [facility] Rheumatology - Dr. Castro Per PCP Note: [...] Visit Other Rheumatoid arthritis involving multiple sites ([facility]) - Primary Overview - Following with [facility] Rheumatoloy Current Assessment & Plan -Good engagement and participation with Group Medical Visit model -Encouraged multifactorial approach to pain control including pharm and non- pharm modalities -UTOX and Pill count as expected Long-term current use of opiate analgesic Overview Medication: Percocet 7.5/325mg TID PRN Indication: Rheumatoid arthritis Last DIRECTOR OF FINANCIAL PLANNING Agreement: 06/12/24 Tier: II (Q3 months visits), Dr. Estrada 08/15/24 Current Assessment & Plan Timeline: - 09/11/24: Group visit, utox/pill count wnl Relevant Orders POCT GALLO-[id number] Urine Drug Screen (Completed) Follow up: 1-3 months for [facility]. Follow up as scheduled with PCP, sooner as needed. * Coral Somers RN - 09/11/2024 9:45 AM EST .DIRECTOR OF FINANCIAL PLANNING canvas repairer: PDMP reviewed today. Last fill date: 08/23/24 [...] ESTAssociated Problem(s): Rheumatoid arthritis involving multiple sites ([facility]) -Good engagement and participation with Group Medical Visit model -Encouraged multifactorial approach to pain control including pharm and non- pharm modalities -UTOX and Pill count as expected documented in this encounter Plan of Treatment Upcoming Encounters Date Type Department Care Team (Late st Contact Info) Description 10/11/2024 1:00 PM EDT Office Visit [facility] OPTOMETRY [address] [place] [address] Libra Linder, OD [address] [place] [address] 11/06/2024 9:45 AM EDT Office Visit [facility] MEDICINE [address] [place] [address] 12/28/2024 9:45 AM EDT Office Visit [facility] MED[facility]INE [address] [place] [address] Mackenzie Estrada MD [address] [place] [address] documented as of this encounter Goals Goal [...] - 09/11/2024 2:01 PM EST .UTOX cup Lot#[id number] Exp. 04/25/26 Internal Pass Control Sisi Kennedy TEST KITCHEN HOME ECONOMIST POINT OF CARE TEST ENTER/EDIT ORDERABLES Final Result documented in this encounter Visit Diagnoses Diagnosis Rheumatoid arthritis involving multiple sites with positive rheumatoid factor ([facility])- Primary Long-term current use of opiate analgesic Encounter for long-term (current) use of other medications documented in this encounter Additional Health Concerns Assessment Noted Time PHQ-9 Depression Total Score: 2 04/30/20 24 10:41 AM EDT documented as of this encounter Care Teams Call Or Contact Centre Coach Relationship Specialty Start Date End Date Mackenzie Estrada MD [address] [place] [address] PCP - General Family Medicine 07/10/20 documented as of this encounter
--- OUTSIDE RECORDS SUMMARY | 2024-10-03 12:48 | XMS_ITS | Encounter Summary ---
Author Organization [employer] Address [address] [place] [address] Care Team Providers Care Gastroenterologist Name Role Phone Mackenzie Estrada MD Primary Care Provider [phone] Encounter Details Date Type Department Care Team (Late st Contact Info) Description 04/20/2024 Telephone [facility] MEDICINE [address] [place], [place] [phone] Mackenzie Estrada MD [address] [place], [place] [phone] Social History Tobacco Use Types Packs/Day Years [...] Office Visit [facility] OPTOMETRY [address] [place], [place] [phone] Libra Linder, OD [address] [place] [address] 11/06/2024 9:45 AM EDT Office Visit [facility] MEDICINE [address] [place] [address] 12/28/2024 9:45 AM EDT Office Visit [address] [address] Mackenzie Estrada MD [address] [place] [address] documented as of this encounter Goals Goal Patient Goal Type Associated Problems Recent Progress Patient-Stated? Author Quit using tobacco (cigarettes, smokeless, etc) Tobacco Use No Corey Lin, PharmD documented as of this encounter Visit Diagnoses Not on filedocumented in this encounter Care Teams Gastroenterologist Relationship Specialty Start Date End Date Mackenzie Estrada MD [address] [place] [address] PCP - General Family Medicine 07/10/20 documented as of this encounter
--- OUTSIDE RECORDS SUMMARY | 2024-10-03 12:49 | XMS_ITS | Encounter Summary ---
Author Organization [facility] Address [address] 7[address] [place] [address] Care Team Providers Care Instructor Of Sociology Name Role Phone Mackenzie Estrada MD Primary Care Provider [phone] Reason for Referral * Imaging (Routine) - Authorized Specialty Diagnoses / Procedures Referred By Contruby t Referred To Contact Radiology Diagnoses Screening mammogram for breast cancer Procedures BI Mammogram Screening Tomosynthesis Bilateral Mackenzie Estrada MD [address] [place] [address] Phone: tel: fax: [address] Phone: tel: fax: Referral ID Status Reason Start Date Expiration Date V isits Requested Visits Authorized [id number] Authorized 09/28/2024 09/28/2025 1 1 Encounter Details Date Type Department Care Team (Late st Contact Info) Description 09/24/2024 3:15 PM EST Office Visit [facility] [address] [place] [address] [phone] Mackenzie Estrada MD [address] [place], [place] [phone] Rheumatoid arthritis involving multiple sites with positive rheumatoid factor (CMS/HCC) (Primary Dx); Dietary counseling; Exercise counseling; Class 1 obesity with serious comorbidity and body mass index (BMI) of 33.0 to 33.9 in adult, unspecified obesity type; Nodular sclerosis Hodgkin lymphoma of lymph nodes of multiple regions (CMS/HCC); NSTEMI (non-ST elevated myocardial infarction) (CMS/HCC); 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 (CMS/HCC); Class 1 obesity; Chronic low back pain, unspecified back pain laterality, unspecified whether sciatica present; Long-term current use of opiate analgesic; Screening mammogram for breast cancer Social History Tobacco Use Types Packs/Day Years [...] AM EDT documented as of this encounter Last Filed Vital Signs Vital Sign Reading Time Taken Comments Blood Pressure 129/74 09/24/2024 2:44 PM EST Pulse 84 09/24/2024 2:44 PM EST Temperature 36.4 ??C (97.5 ??F) 09/24/2024 2:44 PM ES T Respiratory Rate 18 09/24/2024 2:44 PM EST Oxygen Saturation - - Inhaled Oxygen Concentration - - Weight 83.7 kg (184 lb 9.6 oz) 09/24/2024 2:44 P M EST Height 157.5 cm (5' 2 ) 09/24/2024 2:44 PM EST Body Mass Index 33.76 09/24/2024 2:44 PM EST documented in this encounter Progress Notes * Mackenzie Estrada MD - 09/24/2024 3:15 PM EST SUBJECTIVE: Ginette Lacy is a 48 y.o. year old female who presents for chronic disease management,specifically around discussion of chronic pain. MEDBOX Acute Concerns: Cream for ear nodules Pain is not controlled with percocet 7.5mg every 8 hours, would like to increase frequency to every6 hours Interim Updates: NSTEMI RHIANNON placed 05/202406/18/24 cards dalila jackson, plavix for 1 year 07/27/24 ER for pain 08/27/2024 ortho f.u for L shoulder pain, awaiting MRI Hip osteonecrosis/RA 12/2023 Rheum: Idiopathic aseptic necrosis of left femur. Minimal collapse and symptoms are mild. NoSurg Will reorder DME of hospital bed and scooter eval Dizziness is mostly when walking MRI scheduled for 01/08/24 showed no intracerebral cause for dizziness Pelvic pain MRI pelvis results, completed at [facility] 11/25/23 IMPRESSION: * Normal uterus and ovaries. No evidence of uterine adenomyosis or endometriosis. * Small fat-containing left inguinal hernia. * There is stage 2 osteonecrosis of the anterosuperior left femoral head. * Mild edema-like signal change within the distal left iliopsoas is consistent with mild muscle strain. RF++CCP++ Regularly requiring bursts of prednisone 40-60mg for flares, WHICH SHE CANNOT HAVE ANYMORE DUE TO hip osteonecrosi, seeing ortho next week to discuss WILL INCREASE PERCOCET TO 7.5mg/325 every 6hours methotrexate and hydroxychloroquine ?2019 Xeljanz 05/2020-08/2020(ineffective) 2020 methotrexate and Humira(HCQ stopped - ?vision changes). 06/2022 Humira stopped due to poor repsonse 06/2022 methotrexate and Actemra 12/2022: Actemra stopped by the patient. She had some leg swelling as well. 03/10/2023 and 03/24/23: 1 g on each day rituximab administered Olumiant 2mg daily (Evelio 2 inhibitor) 08/2023 effective Additional meds: methotrexate 20 mg weekly, folic acid 1 mg daily. Could not tolerate leuflonomide 09/14/24 physiatry appt, xrays orered Infected tophi of elbows seen in the ER 04/20/24; given steroid again for RA worsening (continually elevated inflammatory markers despite adjustment to DMARDs) Lab Results Component Value Date ESR 101 (H) 04/24/2024 ESR 92 (H) 04/13/2024 ESR 92 (H) 04/11/2024 ESR 72 (H) 12/02/2023 ESR 88 (H) 07/12/2023 ESR 81 (H) 06/25/2023 ESR 85 (H) 06/09/2023 ON ORENCIA infusions weekly Anxiety/depression Moved apartments 12/2023 and that felt relieving Taking psych meds per Dr. 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 History of Hogkins lymphoma Needs routine surveillance after treatment Health Maintenance Smoking- daily, not interested in quitting Pap- 09/2023 NILM/HPV neg Mammo- due 09/2023, ordered 09/2024 Imms- Hep A, Pneumonia, COVID, zoster Patient Active Problem List Diagnosis Acute ankle pain Acute deep vein thrombosis (DVT) of tibial vein of right lower extremity (CMS/HCC) Anxiety Cobalamin deficiency Constipation Acute deep vein thrombosis (DVT) of brachial vein of right upper extremity (CMS/HCC) Depressive disorder Elevated blood pressure reading Fatigue 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 Gastroesophageal reflux disease Goiter Hand pain History of 2019 novel coronavirus disease (COVID-19) Nodular sclerosis Hodgkin lymphoma of lymph nodes of multiple regions (CMS/HCC) Lumbosacral stenosis Mediastinal lymphadenopathy Acute pain of both knees Rheumatoid arthritis involving multiple sites (CMS/HCC) Chronic occlusion of artery of extremity (CMS/HCC) Absolute anemia Leg edema Lymphadenopathy of left cervical region Lymphadenopathy, generalized Migraine without status migrainosus, not intractable Paresthesia and pain of left extremity Recurrent major depressive disorder, in remission (CMS/HCC) Stress incontinence Left hand pain Tobacco dependence Chronic lower back pain Leg pain, anterior, left Class 1 obesity with serious comorbidity and body mass index (BMI) of 33.0 to 33.9 in adult History of DVT (deep vein thrombosis) senior living current use of anticoagulant Personal history of Hodgkin lymphoma Axillary lymphadenopathy 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 (CMS/HCC) 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 (CMS/HCC) Inflammatory arthritis Periodontal disease Epicondylitis elbow, medial, left NSTEMI (non-ST elevated myocardial infarction) ([facility]/HCC) Right hip pain Pain and swelling of left wrist Long-term current use of opiate analgesic Past Surgical History: Procedure Laterality Date CHOLECYSTECTOMY CTA ABDOMEN PELVIS W AND WO CONTRAST 04/22/2023 CTA ABDOMEN AORTA RUNOFF ESOPHAGEAL MANOMETRY HERNIA REPAIR Family History Problem Relation Name Age of Onset Diabetes Mother Coronary artery disease Mother Stroke Father Social History Socioeconomic History Marital status: Single Spouse name: Not on file Number of children: Not on file Years of education: Not on file Highest education level: Not on file Occupational History Not on file Tobacco Use Smoking status: Former Current packs/day: 0.25 Types: Cigarettes Passive exposure: Never Smokeless tobacco: Never Vaping Use Vaping status: Some Days Substances: THC Substance and Sexual Activity Alcohol use: Never Drug use: Yes Types: Marijuana Sexual activity: Not on file Other Topics Concern Not on file Social History Narrative Lives with I ground floor apartment Son is her TERRESTRIAL ECOLOGIST unemployed Social Drivers of Health Food Insecurity: Low Risk (05/15/2023) Food Insecurity Within the past 12 months, you worried that your food would run out before you got money to buy more:: Never True Within the past 12 months,the food you bought just didn't last and you didn't have enough money to get more: : Never True Transportation Needs: High Risk (12/20/2023) Transportation In the past 12 months, has lack of transportation kept you from medical appts, meetings, work or from getting things needed for daily living? : Yes, it has kept me from non-medical meetings, work, orgetting things that I need Intimate Partner Violence: Not on file Housing Stability: Low Risk (05/15/2023) Housing Stability What is your housing situation today?: I have housing Think about the place you live. Do you have problems with any of the following? : None of the above Review of Systems Constitutional: Positive for fatigue. HENT: Positive for ear pain. Respiratory: Positive for chest tightness. Cardiovascular: Negative for chest pain, palpitations and leg swelling. Gastrointestinal: Positive for abdominal pain. Genitourinary: Positive for pelvic pain. Musculoskeletal: Positive for arthralgias, gait problem, joint swelling, myalgias and neck pain. Psychiatric/Behavioral: Positive for dysphoric mood. The patient is nervous/anxious. OBJECTIVE: Vitals: 09/24/24 1444 BP: 129/74 BP Location: Right arm Patient Position: Sitting BP Cuff Size: Adult Pulse: 84 Resp: 18 Temp: 97.5 ??F (36.4 ??C) TempSrc: Tympanic Weight: 184 lb 9.6 oz (83.7 kg) Height: 5' 2 (1.575 m) Physical Exam Constitutional: Appearance: Normal appearance. HENT: Head: Normocephalic and atraumatic. Cardiovascular: Rate and Rhythm: Normal rate and regular rhythm. Pulses: Normal pulses. Heart sounds: Normal heart sounds. Pulmonary: Effort: Pulmonary effort is normal. Breath sounds: Normal breath sounds. Musculoskeletal: Comments: Swelling, without warmth or redness of wrists and MCP and PIP joints of bilateral hands Skin: Findings: Lesion present. Comments: Small areas of open wounds on ear nodules Neurological: Mental Status: She is alert. Problem List Items Addressed This Visit Nodular sclerosis Hodgkin lymphoma of lymph nodes of multiple regions (CMS/HCC) Rheumatoid arthritis involving multiple sites (CMS/HCC) - Primary Overview - Following with [facility] Rheumatoloy Current Assessment & Plan Uncontrolled, active disease, high ESR Orencia providing better control in terms of synovitis Pain is severe Disability is severe, limited mobility and exercise tolerance Will re-order hospital bed and scooter evaluation Mupirocin for ear nodules BID x 7 days Diclofenc gel for wrist and hand pain Relevant Medications mupirocin (Bactroban) 2 % ointment Chronic lower back pain Relevant Medications Diclofenac Sodium 1 % gel Class 1 obesity with serious comorbidity and body mass index (BMI) of 33.0 to 33.9 in adult 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 ([facility]) NSTEMI (non-ST elevated myocardial infarction) ([facility]) Overview 05/2024 Catheterization revealed mid LAD plaque rupture and 80% stenosis. ECHO revealed LVEF 51%, abnormal septal motion consistent with conduction abnormality, mild mitral and tricuspid regurgitation, and mildly elevated CVP to 8 mmHg. EKG demonstrated prolonged Qtc to 556 msec Relevant Medications clopidogrel (Plavix) 75 MG tablet Long-term current use of opiate analgesic Overview Medication: Percocet 7.5/325mg, increasing to every 6 hours prn at 09/2024 refill Indication: Rheumatoid arthritis Last BRICKMASON SUPERVISOR Agreement: 06/12/24 Tier: II (Q3 months visits), Dr. Estrada 08/15/24 Current Assessment & Plan Has Narcan at home BRICKMASON SUPERVISOR agreement UTD Seeing group pain visits for BRICKMASON SUPERVISOR Other Visit Diagnoses Dietary counseling Exercise counseling Screening mammogram for breast cancer Relevant Orders BI Mammogram Screening Tomosynthesis Bilateral Follow Up: 3 months or sooner prn Allergies Allergen Reactions Almonds [Orlando Oil] Anaphylaxis Orlando (Diagnostic) Morphine Other reaction(s): Unknown Pedi-Pre Tape Lee [Wound Dressing Adhesive] Tramadol Other reaction(s): Vomiting Current Outpatient Medications: albuterol (Ventolin HFA) 108 (90 Base) MCG/ACT inhaler, INHALE 2 PUFFS EVERY 4 HOURS NEEDED FOR WHEEZING OR SHORTNESS OF BREATH, Disp: 18 g, Rfl: 11 Alcohol Swabs (SM Alcohol Prep) 70 % pads, USE DIRECTED TWICE DAILY, Disp: , Rfl: ALPRAZolam (Xanax) 1 MG tablet, Take 1 mg by mouth if needed at bedtime., Disp: , Rfl: atorvastatin (Lipitor) 80 MG tablet, Take 1 tablet (80 mg) by mouth Once per day., Disp: 90 tablet,Rfl: 3 benztropine (Cogentin) 0.5 MG tablet, Take 0.5 mg by mouth in the morning., Disp: , Rfl: beta carotene (vitamin A) 3 MG (53580 UT) capsule, Take by mouth in the morning., Disp: , Rfl: cetirizine (ZyrTEC) 10 MG tablet, TAKE 1 TABLET BY MOUTH EVERY MORNING FOR EAR PAIN, Disp: 90 tablet, Rfl: 3 clopidogrel (Plavix) 75 MG tablet, Take 1 tablet (75 mg) by mouth Once per day., Disp: 90 tablet, Rfl: 3 Diclofenac Sodium 1 % gel, apply 2 gram by topical route 4 times every day as needed for hand pain,Disp: 50 g, Rfl: 2 docusate sodium (Colace) 100 MG capsule, TAKE 1 CAPSULE BY MOUTH AT BEDTIME NEEDED, Disp: 90 capsule, Rfl: 3 Eliquis 5 MG tablet, TAKE 1 TABLET BY MOUTH TWICE DAILY IN THE MORNING AND IN THE EVENING, Disp: 180 tablet, Rfl: 1 famotidine (Pepcid) 20 MG tablet, TAKE 1 TABLET BY MOUTH TWICE DAILY AT NOON AND IN THE EVENING, Disp: 180 tablet, Rfl: 3 FeroSul 325 (65 Fe) MG tablet, TAKE 1 TABLET BY MOUTH EVERY MORNING, Disp: 90 tablet, Rfl: 3 folic acid (Folvite) 1 MG tablet, Take 1,000 mcg by mouth in the morning., Disp: , Rfl: gabapentin (Neurontin) 400 MG capsule, TAKE 1 CAPSULE BY MOUTH THREE TIMES DAILY IN THE MORNING, EVENING, AND BEDTIME (TAKE 1-2 CAPSULE (S) BY MOUTH THREE TIMES DAILY -EXTRA IN VIAL FOR NEEDED), Disp: 120 capsule, Rfl: 6 lidocaine (Lidoderm) 5 % patch, APPLY 1 PATCH TOPICALLY TO SKIN, LEAVE ON FOR 12 HOURS AND OFF FOR 12 HOURS DIRECTED, Disp: 30 patch, Rfl: 3 methotrexate 2.5 MG tablet, TAKE 10 TABLETS BY MOUTH EVERY WEEK, Disp: , Rfl: metoprolol succinate XL (Toprol-XL) 50 MG 24 hr tablet, Take 1 tablet (50 mg) by mouth Once per day., Disp: 90 tablet, Rfl: 3 mupirocin (Bactroban) 2 % ointment, Apply topically 3 times daily for 10 days., Disp: 22 g, Rfl: 0 nitroglycerin (Nitrostat) 0.4 MG SL tablet, Place 1 tablet under the tongue every 5 (five) minutes if needed for chest pain. Max 3 doses in 15 min. Call 911/seek medical attention if pain persists, Disp: , Rfl: oxyCODONE-acetaminophen (Percocet) 7.5-325 MG tablet, Take 1 tablet by mouth every 8 (eight) hours if needed for severe pain for up to 28 days., Disp: 84 tablet, Rfl: 0 pantoprazole (ProtoNix) 40 MG EC tablet, Take 40 mg by mouth in the morning., Disp: , Rfl: risperiDONE (RisperDAL) 1 MG tablet, take 1 tablet by oral route at bedtime and 1/2 tablet daily asneeded for agitation or anxiety, Disp: , Rfl: sertraline (Zoloft) 50 MG tablet, Take 1 tablet (50 mg) by mouth Once per day., Disp: 90 tablet, Rfl: 3 Sharps Container (GUARDIAN Sharps Comber Tender) [facility], , Disp: , Rfl: traZODone (Desyrel) 150 MG tablet, take 1 tablet by oral route every day at bedtime as needed, Disp: , Rfl: Umeclidinium Sidney (Incruse Ellipta) 62.5 MCG/ACT aerosol powder , INHALE 1 PUFF BY MOUTH EVERY DAY AT THE SAME TIME, Disp: 1 each, Rfl: 11 ursodiol (Sushil) 250 MG tablet, Take 1 tablet (250 mg) by mouth 2 times daily., Disp: 60 tablet, Rfl: 11 Vitamin D High Potency 25 MCG (1000 UT) capsule, Take 25 mcg by mouth in the morning., Disp: , Rfl: Palestinian Translation: Provided by [facility] staff member SARAI Gamino documented in this encounter Miscellaneous Notes * Assessment & Plan Note - Mackenzie Estrada MD - 09/28/2024 8:21 AM ESTAssociated Problem(s): Long-term current use of opiate analgesic Has Narcan at home BRICKMASON SUPERVISOR agreement UTD Seeing group pain visits for BRICKMASON SUPERVISOR * Assessment & Plan Note - Mackenzie Estrada MD - 09/28/2024 8:20 AM ESTAssociated Problem(s): Rheumatoid arthritis involving multiple sites ([facility]) Uncontrolled, active disease, high ESR Orencia providing better control in terms of synovitis Pain is severe Disability is severe, limited mobility and exercise tolerance Will re-order hospital bed and scooter evaluation Mupirocin for ear nodules BID x 7 days Diclofenc gel for wrist and hand pain documented in this encounter Plan of Treatment Upcoming Encounters Date Type Department Care Team (Late st Contact Info) Description 10/11/2024 1:00 PM EDT Office Visit [facility] [address] [place] [address] Libra Linder, OD [address] [place] [address] 11/06/2024 9:45 AM EDT Office Visit [facility] [address] [place] [address] 12/28/2024 9:45 AM EDT Office Visit [facility] [address] [place] [address] Mackenzie Estrada MD [address] [place] [address] Scheduled Orders Name Type Priority Associated Diagnoses Orde r Schedule BI Mammogram Screening Tomosynthesis Bilateral Imaging Routine Screening mammogram for breast cancer Expected: 09/28/2024, Expires: 11/26/2025 documented as of this encounter Goals Goal Patient Goal Type Associated Problems Recent Progress Patient-Stated? Author Quit using tobacco (cigarettes, smokeless, etc) Tobacco Use Corey Cornell, Bailey documented as of this encounter Visit Diagnoses Diagnosis Rheumatoid arthritis involving multiple sites with positive rheumatoid factor ([facility])- Primary Dietary counseling Dietary surveillance and counseling Exercise counseling Class 1 obesity with serious comorbidity and body mass index (BMI) of 33.0 to 33.9 in adult, unspecified obesity type Nodular sclerosis Hodgkin lymphoma of lymph nodes of multiple regions ([facility]) NSTEMI (non-ST elevated myocardial infarction) ([facility]) Acute myocardial infarction, subendocardial infarction, episode of care unspecified 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 (CMS/HCC) Class 1 obesity Chronic low back pain, unspecified back pain laterality, unspecified whether sciatica present Long-term current use of opiate analgesic Encounter for long-term (current) use of other medications Screening mammogram for breast cancer documented in this encounter Additional Health Concerns Assessment Noted Time PHQ-9 Depression Total Score: 2 04/30/20 24 10:41 AM EDT documented as of this encounter Care Teams Instructor Of Sociology Relationship Specialty Start Date End Date Mackenzie Estrada MD [address] [place] [id number] PCP - General Family Medicine 07/10/20 documented as of this encounter
--- OUTSIDE RECORDS SUMMARY | 2024-10-03 12:49 | XMS_ITS | Encounter Summary ---
Author Organization [employer] Address [address] [place] [address] Care Team Providers Care Audiovisual Equipment Operator Name Role Phone Mackenzie Estrada MD Primary Care Provider [phone] Reason for Visit * Reason Comments Med Refill Encounter Details Date Type Department Care Team ([facility] Contact Info) Description 07/21/2023 Refill [facility] [address] [place], [place] [phone] Name, MD Mark [address] [place] [address] Pain in both hands Social History Tobacco [...] is your housing situation today? I have mnedoza prince 05/15/[address] you [...] 10/11/2024 1:00 PM EDT Office Visit [facility] [address] [place] [address] Libra Linder, OD [address] [place] [address] 11/06/2024 9:45 AM EDT Office Visit [facility] [address] [place] [phone] 12/28/2024 9:45 AM EDT Office Visit [address] [address] Mackenzie Estrada MD [address] [place], [place] [phone] documented as of this encounter Goals Goal Patient Goal Type Associated Problems Recent Progress Patient-Stated? Author Quit using tobacco (cigarettes, smokeless, etc) Tobacco Use No Corey Lin, PharmD documented as of this encounter Visit Diagnoses Diagnosis Pain in both hands documented in this encounter Care Teams Audiovisual Equipment Operator Relationship Specialty Start Date End Date Mackenzie Estrada MD [address] [place], [place] [phone] PCP - General Family Medicine 07/10/20 documented as of this encounter
--- OUTSIDE RECORDS SUMMARY | 2024-10-03 12:49 | XMS_ITS | Encounter Summary ---
Author Organization [employer] Address [address] [facility] [place] [address] Care Team Providers Care Key Account Director Name Role Phone Mackenzie Estrada MD Primary Care Provider [phone] Reason for Visit * Reason Comments Med Refill Encounter Details Date Type Department Care Team ([facility] st Contact Info) Description 06/01/2023 Refill [facility] [address] [place], [place] [phone] Mackenzie Estrada MD [address] [place], [place] [phone] Pain in both hands Social History Tobacco [...] 1:00 PM EDT Office Visit [facility] OPTOMETRY [address] [place] [address] Libra Linder, OD [address] [place] [address] 11/06/2024 9:45 AM EDT Office Visit [facility] [address] [place] [phone] 12/28/2024 9:45 AM EDT Office Visit [address] [address] Mackenzie Estrada MD [address] [place] [address] documented as of this encounter Goals Goal Patient Goal Type Associated Problems Recent Progress Patient-Stated? Author Quit using tobacco (cigarettes, smokeless, etc) Tobacco Use No Corey Lin, KelechiD documented as of this encounter Visit Diagnoses Diagnosis Pain in both hands documented in this encounter Care Teams Key Account Director Relationship Specialty Start Date End Date Mackenzie Estrada MD [address] [place] [phone] PCP - General Family Medicine 07/10/20 documented as of this encounter
--- OUTSIDE RECORDS SUMMARY | 2024-10-03 12:49 | XMS_ITS | Encounter Summary ---
Author Organization [employer] Address 75 [facility] 7t [place] [address] Care Team Providers Care Advanced Manufacturing Vice President Name Role Phone Mackenzie Estrada MD Primary Care Provider [phone] Reason for Visit * Reason Onset Date Comments Triage 11/10/2022 Encounter Details Date Type Department Care Team ([facility] Contact Info) Description 11/10/[address] [facility] MEDICINE [address] [place], [place] [phone] Mackenzie Estrada MD [address] [place], [place] [phone] Triage Social History Tobacco Use Types Packs/Day [...] - 11/11/2022 11:10 AM EDT TC to [phone] via [employer] interpreters in regards to below message. Pt reports she went to [facility] since [facility] did not return her call. RN informed pt triage nurses attempted to call pt x2 however pt did not answer. RN reviewed [facility] ED note and pt presented to ED [...] however she has not been able to sweet pickled fruit maker the nystatin medication because [facility] did not have it. RN asked if [facility] informed the pt they were going to order it however pt was not sure. RN placed pt on hold and called [facility] pharmacy who reports it is supposed to be arriving in store today and pt should call around 3pm to inquire if it was received and ready for sweet pickled fruit maker. Pt verbalized understanding. RN advised pt if her rash does not resolve with medication and her pain does not resolve to call [facility] to schedule an appt for further evaluation. Pt verbalized understanding. Pt to F/U PRN. RN has printed ED note and placed in scan bin * Telephone Encounter - Chika Ingram LPN - 11/10/2022 2:30 PM EDT Triage call returned to patient with [place] heading up machine operator [phone] to listed number x 2 no answer. Left message to return call to [phone]. Team Nurses tasked to follow with patient [...] PM EDT Office Visit [facility] OPTOMETRY [address] [place] [address] Libra Linder, OD 230 [place] [address] 11/06/2024 9:45 AM EDT Office Visit [facility] MEDICINE [address] [place] [address] 12/28/2024 9:45 AM EDT Office Visit [facility] MEDICINE [address] [place] [address] Mackenzie Estrada MD [address] [place] [address] documented as of this encounter Visit Diagnoses Not on filedocumented in this encounter Care Teams Advanced Manufacturing Vice President Relationship Specialty Start Date End Date Mackenzie Estrada MD [address] [place] [address] PCP - General Family Medicine 07/10/20 documented as of this encounter
--- OUTSIDE RECORDS SUMMARY | 2024-10-03 12:49 | XMS_ITS | Encounter Summary ---
Author Organization [employer] Address [address] [facility] [address] 7t [place] [address] Care Team Providers Care Silk Printer Name Role Phone Mackenzie Estrada MD Primary Care Provider [phone] Encounter Details Date Type Department Care Team (Latest Contact Info) Description 09/24/2024 Travel Social History Tobacco Use Types Packs/Day [...] Description 10/11/2024 1:00 PM EDT Office Visit [facility] OPTOMETRY [address] [place] [address] Libra Linder, OD 230 [place] [address] 11/06/2024 9:45 AM EDT Office Visit [facility] MEDICINE [address] [place] [address] 12/28/2024 9:45 AM EDT Office Visit [facility] MEDICINE [address] [place] [address] Mackenzie Estrada MD 230 [place] [address] documented as of this encounter Goals Goal [...] documented as of this encounter Care Teams Silk Printer Relationship Specialty Start Date End Date Mackenzie Estrada MD 230 [place] [address] PCP - General Family Medicine 07/10/20 documented as of this encounter
--- OUTSIDE RECORDS SUMMARY | 2024-10-03 12:49 | XMS_ITS | Encounter Summary ---
Author Organization [employer] Address [address] [facility] [address] 7t [place] [address] Care Team Providers Care Conservation Enforcement Officer Name Role Phone Mackenzie Estrada MD Primary Care Provider [phone] Reason for Visit * Reason Comments Med Refill Encounter Details Date Type Department Care Team ([facility] Contact Info) Description 07/27/[address] [facility] MEDICINE [address] [place], [place] [phone] Name, MD Mark 230 [place] [address] Pain in both hands Social History Tobacco [...] Description 10/11/2024 1:00 PM EDT Office Visit [facility] OPTOMETRY [address] [place] [address] Libra Linder, OD 230 [place] [address] 11/06/2024 9:45 AM EDT Office Visit [facility] MEDICINE [address] [place] [address] 12/28/2024 9:45 AM EDT Office Visit [address] [address] Mackenzie Estrada MD 230 [place], [place] [phone] documented as of this encounter Goals Goal Patient Goal Type Associated Problems Recent Progress Patient-Stated? Author Quit using tobacco (cigarettes, smokeless, etc) Tobacco Use No Corey Lin, PharmD documented as of this encounter Visit Diagnoses Diagnosis Pain in both hands documented in this encounter Care Teams Conservation Enforcement Officer Relationship Specialty Start Date End Date Mackenzie Estrada MD 230 [place], [place] [phone] PCP - General Family Medicine 07/10/20 documented as of this encounter
--- OUTSIDE RECORDS SUMMARY | 2024-10-03 12:49 | XMS_ITS | Encounter Summary ---
Author Organization [employer] Address [address] [facility] [address] 7[address] [place] [address] Care Team Providers Care Section Supervisor Name Role Phone Mackenzie Estrada MD Primary Care Provider [phone] Reason for Visit * Reason Onset Date Comments Appointment Request 08/16/2023 Encounter Details Date Type Department Care Team ([facility] Contact Info) Description 08/16/[address] [facility] MEDICINE 230 [place], [place] [phone] Mackenzie Estrada MD 230 [place] [address] Appointment Request Social History Tobacco Use Types [...] be seen today. Please contact pt @ [phone] Uruguayan Speaker documented in this encounter Plan of Treatment Upcoming Encounters Date Type Department Care Team (Late st Contact Info) Description 10/11/2024 1:00 PM EDT Office Visit [facility] OPTOMETRY [address] [place] [address] Libra Linder, OD 230 [place] [address] 11/06/2024 9:45 AM EDT Office Visit [facility] MEDICINE 230 [place] [address] 12/28/2024 9:45 AM EDT Office Visit [facility] MEDICINE 230 [place] [address] Mackenzie Estrada MD 230 [place], [place] [phone] documented as of this encounter Goals Goal Patient Goal Type Associated Problems Recent Progress Patient-Stated? Author Quit using tobacco (cigarettes, smokeless, etc) Tobacco Use No Corey Lin, KelechiD documented as of this encounter Visit Diagnoses Not on filedocumented in this encounter Care Teams Section Supervisor Relationship Specialty Start Date End Date Mackenzie Estrada MD 230 [place] [address] PCP - General Family Medicine 07/10/20 documented as of this encounter
--- OUTSIDE RECORDS SUMMARY | 2024-10-03 12:49 | XMS_ITS | Encounter Summary ---
Author Organization [employer] [facility] Address 75 [facility] 7t [place] [address] Care Team Providers Care Fleet Manager/Dispatch Name Role Phone Mackenzie Estrada MD Primary Care Provider [phone] Reason for Visit * Reason Comments Med Refill Encounter Details Date Type Department Care Team (Late Contact Info) Description 07/28/2022 Refill [facility] MEDICINE 230 [place] [address] Mackenzie Estrada MD [address] [place] [address] Pain in both hands Social History Tobacco [...] Department Care Team (Late Contact Info) Description 10/11/2024 1:00 PM EDT Office Visit [facility] OPTOMETRY [address] [place] [address] Libra Linder, OD 230 [place] [address] 11/06/2024 9:45 AM EDT Office Visit [facility] MEDICINE [address] [place] [address] 12/28/2024 9:45 AM EDT Office Visit [facility] MEDICINE [address] [place] [address] Mackenzie Estrada MD 230 [place] [address] documented as of this encounter Visit Diagnoses Diagnosis Pain in both hands documented in this encounter Care Teams Fleet Manager/Dispatch Relationship Specialty Start Date End Date Mackenzie Estrada MD 230 [place], [place] [phone] PCP - General Family Medicine 07/10/20 documented as of this encounter
--- OUTSIDE RECORDS SUMMARY | 2024-10-03 12:49 | XMS_ITS | Encounter Summary ---
Author Organization [employer] Address [address] [facility] [address] 7[address] [place] [address] Care Team Providers Care Financial Services Education Consultant Name Role Phone Mackenzie Estrada MD Primary Care Provider [phone] Reason for Visit * Reason Comments Med Refill Encounter Details Date Type Department Care Team ([facility] Contact Info) Description 09/17/2024 Refill [facility] MEDICINE 230 [place], [place] [phone] Mackenzie Estrada MD [address] [place], [place] [phone] Social History Tobacco Use Types Packs/Day Years [...] Description 10/11/2024 1:00 PM EDT Office Visit [facility] OPTOMETRY [address] [place], [place] [phone] Libra Linder, OD 230 [place] [address] 11/06/2024 9:45 AM EDT Office Visit [facility] MEDICINE [address] [place] [address] 12/28/2024 9:45 AM EDT Office Visit [facility] MEDICINE [address] [place] [address] Mackenzie Estrada MD 230 [place] [address] documented as of this encounter Goals Goal [...] documented as of this encounter Care Teams Financial Services Education Consultant Relationship Specialty Start Date End Date Mackenzie Estrada MD 230 [place] [address] PCP - General Family Medicine 07/10/20 documented as of this encounter
--- OUTSIDE RECORDS SUMMARY | 2024-10-03 12:49 | XMS_ITS | Encounter Summary ---
Author Organization [employer] Address [address] [facility] [address] 7[address] [place] [address] Care Team Providers Care Upholsterer Limousine And Hearse Name Role Phone Mackenzie Estrada MD Primary Care Provider [phone] Encounter Details Date Type Department Care Team ([facility] st Contact Info) Description 05/21/2024 Telephone [facility] MEDICINE 230 [place], [place] [phone] Mackenzie Estrada MD 230 [place], [place] [phone] Social History Tobacco Use Types Packs/Day Years [...] Description 10/11/2024 1:00 PM EDT Office Visit [facility] OPTOMETRY [address] [place] [address] Kailash, Libra, OD 230 [place] [address] 11/06/2024 9:45 AM EDT Office Visit [facility] MEDICINE [address] [place] [address] 12/28/2024 9:45 AM EDT Office Visit [facility] MEDICINE [address] [place] [address] Mackenzie Estrada MD [address] [place] [address] documented as of this encounter Goals Goal Patient Goal Type Associated Problems Recent Progress Patient-Stated? Author Quit using tobacco (cigarettes, smokeless, etc) Tobacco Use Corey Cornell, PharmD documented as of this encounter Visit Diagnoses Not on filedocumented in this encounter Additional Health Concerns Assessment Noted Time PHQ-9 Depression Total Score: 2 04/30/20 24 10:41 AM EDT documented as of this encounter Care Teams Upholsterer Limousine And Hearse Relationship Specialty Start Date End Date Mackenzie Estrada MD 230 [place] [address] PCP - General Family Medicine 07/10/20 documented as of this encounter
--- OUTSIDE RECORDS SUMMARY | 2024-10-03 12:49 | XMS_ITS | Encounter Summary ---
Author Organization [employer] Address [address] [facility] [address] 7[address] [place] [address] Care Team Providers Care Chief Analytics Officer Name Role Phone Mackenzie Estrada MD Primary Care Provider [phone] Encounter Details Date Type Department Care Team (Late st Contact Info) Description 06/01/2023 Orders Only [facility] MEDICINE [address] [place], [place] [phone] Mackenzie Estrada MD 230 [place] [address] Encounter for smoking cessation counseling (Primary Dx) [...] Description 10/11/2024 1:00 PM EDT Office Visit [facility] OPTOMETRY [address] [place] [address] Kailash, Libra, OD 230 [place] [address] 11/06/2024 9:45 AM EDT Office Visit [facility] MEDICINE [address] [place] [address] 12/28/2024 9:45 AM EDT Office Visit [address] [address] Mackenzie Estrada MD 230 [place] [address] documented as of this encounter Goals Goal Patient Goal Type Associated Problems Recent Progress Patient-Stated? Author Quit using tobacco (cigarettes, smokeless, etc) Tobacco Use No Corey Lin, PharmD documented as of this encounter Visit Diagnoses Diagnosis Encounter for smoking cessation counseling- Primary documented in this encounter Care Teams Chief Analytics Officer Relationship Specialty Start Date End Date Mackenzie Estrada MD [address] [place] [address] PCP - General Family Medicine 07/10/20 documented as of this encounter
--- OUTSIDE RECORDS SUMMARY | 2024-10-03 12:49 | XMS_ITS | Encounter Summary ---
Author Organization [employer] Address [address] [facility] [address] 7t [place] [address] Care Team Providers Care Assistant Distribution Manager Name Role Phone Mackenzie Estrada MD Primary Care Provider [phone] Reason for Visit * Reason Onset Date Comments Hospital Follow-up 02/24/2024 Encounter Details Date Type Department Care Team ([facility] st Contact Info) Description 02/24/2024 Telephone [facility] MEDICINE 230 [place], [place] [phone] Mackenzie Estrada MD 230 [place] [address] Hospital Follow-up Social History Tobacco Use Types [...] from pt requesting a HDF appt. Hospital: [facility] Date of admission: 02/19 Discharge date: 02/23 Diagnosed: Rectal Bleeding South African Speaker documented in this encounter Plan of Treatment Upcoming Encounters Date Type Department Care Team (Late st Contact Info) Description 10/11/2024 1:00 PM EDT Office Visit [facility] OPTOMETRY [address] [place] [address] Libra Linder, OD 230 [place] [address] 11/06/2024 9:45 AM EDT Office Visit [facility] MEDICINE 230 [place] [address] 12/28/2024 9:45 AM EDT Office Visit [facility] MEDICINE 230 [place] [address] Mackenzie Estrada MD 230 [place] [address] documented as of this encounter Goals Goal Patient Goal Type Associated Problems Recent Progress Patient-Stated? Author Quit using tobacco (cigarettes, smokeless, etc) Tobacco Use No Corey Lin, KelechiD documented as of this encounter Visit Diagnoses Not on filedocumented in this encounter Care Teams Assistant Distribution Manager Relationship Specialty Start Date End Date Mackenzie Estrada MD 230 [place] [address] PCP - General Family Medicine 07/10/20 documented as of this encounter
--- OUTSIDE RECORDS SUMMARY | 2024-10-03 12:49 | XMS_ITS | Encounter Summary ---
Author Organization [employer] [facility] Address 75 [facility] 7t [place] [address] Care Team Providers Care Optical Fabricator Name Role Phone Mackenzie Estrada MD Primary Care Provider [phone] Encounter Details Date Type Department Care Team ([facility] Contact Info) Description 03/29/2023 Abstract [facility] MEDICINE [address] [place], [place] [phone] Cecilia Henriquez Social History Tobacco Use Types [...] Upcoming Encounters Date Type Department Care Team ([facility] Contact Info) Description 10/11/2024 1:00 PM EDT Office Visit [facility] OPTOMETRY [address] [place], [place] [phone] Libra Linder, OD 230 [place] [address] 11/06/2024 9:45 AM EDT Office Visit [facility] MEDICINE 230 [place], [place] [phone] 12/28/2024 9:45 AM EDT Office Visit [facility] MEDICINE [address] [place], [place] [phone] Mackenzie Estrada MD 230 [place], [place] [phone] documented as of this encounter Procedures Procedure Name Priority Date/Time Associated Diagnosis Comments COLONOSCOPY Routine 10/28/2017 documented in this encounter Results * Colonoscopy (10/28/2017) Colonoscopy Normal Normal Narrative FlorenceCecilia florez - 10/28/2017 Recommended 10 year follow up ([facility]) us Historical Provider [facility] Edited Result - Final documented in this encounter Visit Diagnoses Not on filedocumented in this encounter Care Teams Optical Fabricator Relationship Specialty Start Date End Date Mackenzie Estrada MD 230 [place] [address] PCP - General Family Medicine 07/10/20 documented as of this encounter
--- OUTSIDE RECORDS SUMMARY | 2024-10-03 12:49 | XMS_ITS | Encounter Summary ---
Author Organization [employer] Address [address] [facility] [address] [place] [address] Care Team Providers Care Correctional Classification Counselor Name Role Phone Mackenzie Estrada MD Primary Care Provider [phone] Reason for Visit * Reason Comments Med Refill Encounter Details Date Type Department Care Team ([facility] st Contact Info) Description 01/12/2024 Refill [facility] MEDICINE 230 [place], [place] [phone] Mackenzie Estrada MD 230 [place], [place] [phone] Rheumatoid arthritis involving multiple sites with positive rheumatoid factor ([facility] Social History Tobacco Use Types Packs/Day Years [...] Description 10/11/2024 1:00 PM EDT Office Visit [facility] OPTOMETRY [address] [place] [address] Kailash, Libra, OD 230 [place] [address] 11/06/2024 9:45 AM EDT Office Visit [facility] MEDICINE [address] [place] [address] 12/28/2024 9:45 AM EDT Office Visit [facility] MEDICINE 230 [place] [address] Mackenzie Estrada MD [address] [place] [address] documented as of this encounter Goals Goal Patient Goal Type Associated Problems Recent Progress Patient-Stated? Author Quit using tobacco (cigarettes, smokeless, etc) Tobacco Use No Corey Lin, KelechiD documented as of this encounter Visit Diagnoses Diagnosis Rheumatoid arthritis involving multiple sites with positive rheumatoid factor ([facility]) documented in this encounter Care Teams Correctional Classification Counselor Relationship Specialty Start Date End Date Mackenzie Estrada MD [address] [place] [address] PCP - General Family Medicine 07/10/20 documented as of this encounter
--- OUTSIDE RECORDS SUMMARY | 2024-10-03 12:49 | XMS_ITS | Encounter Summary ---
Author Organization [employer] Address [address] [facility] [address] [place] [address] Care Team Providers Care Gradall Operator Name Role Phone Mackenzie Estrada MD Primary Care Provider [phone] Reason for Visit * Reason Comments Med Refill Encounter Details Date Type Department Care Team (Late Contact Info) Description 09/22/2022 Refill [facility] 230 [place], [place] [phone] Sarika Palacios ANP 230 [place], [place] [phone] Tinea pedis of both feet Social History [...] Description 10/11/2024 1:00 PM EDT Office Visit [facility] OPTOMETRY [address] [place], [place] [phone] Libra Linder, OD 230 [place] [address] 11/06/2024 9:45 AM EDT Office Visit [facility] MEDICINE [address] [place] [phone] 12/28/2024 9:45 AM EDT Office Visit [facility] MEDICINE [address] [place] [address] [phone] Mackenzie Estrada MD [address] [place] [address] documented as of this encounter Visit Diagnoses Diagnosis Tinea pedis of both feet documented in this encounter Care Teams Gradall Operator Relationship Specialty Start Date End Date Mackenzie Estrada MD [address] [place] [address] [phone] PCP - General Family Medicine 07/10/20 documented as of this encounter
--- OUTSIDE RECORDS SUMMARY | 2024-10-03 12:49 | XMS_ITS | Encounter Summary ---
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 documented in this encounter Plan of Treatment Upcoming Encounters Date Type Department Care Team (Late st Contact Info) Description 10/11/2024 1:00 PM EDT Office Visit [facility] OPTOMETRY [address] [place], [place] [phone] Libra Linder, OD [address] [place], [place] [phone] 11/06/2024 9:45 AM EDT Office Visit [facility] MEDICINE [address] [place] [phone] 12/28/2024 9:45 AM EDT Office Visit [facility] MEDICINE [address] [place] [address] Mackenzei Estrada MD [address] [place] [address] documented as of this encounter Goals Goal [...] documented as of this encounter Care Teams Sailboat Captain Relationship Specialty Start Date End Date Mackenzie Estrada MD [address] [place] [address] PCP - General Family Medicine 07/10/20 documented as of this encounter
--- OUTSIDE RECORDS SUMMARY | 2024-10-03 12:49 | XMS_ITS | Encounter Summary ---
Demographics Address [address] [place] [address] Mobile Phone Home Phone Preferred Language es Marital Status Single Rastafarian Affiliation Unknown Race Other Race Ethnic Group or Author Organization [employer] Address [address] 7t [place] [address] Care Team Providers Care Equipment Technician Name Role Phone Mackenzie Estrada MD Primary Care Provider [phone] Encounter Details Date Type Department Care Team ([facility] Contact Info) Description 09/14/2024 Orders Only [facility] External Provider, [facility] Social History Tobacco Use Types Packs/Day Years [...] 1:00 PM EDT Office Visit [facility] OPTOMETRY [address] [place] [address] Libra Linder, OD 230 [place] [address] 11/06/2024 9:45 AM EDT Office Visit [facility] MEDICINE [address] [place] [address] 12/28/2024 9:45 AM EDT Office Visit [facility] [address] [place] [address] Mackenzie Estrada MD 230 [place] [address] documented as of this encounter Goals Goal Patient Goal Type Associated Problems Recent Progress Patient-Stated? Author Quit using tobacco (cigarettes, smokeless, etc) Tobacco Use No Corey Lin, KelechiD documented as of this encounter Procedures Procedure Name Priority Date/Time Associated Diagnosis Comments XR ELBOW 3+ VIEWS LEFT Routine 09/15/2024 8:07 AM EST XR SCAPULA LEFT Routine 09/15/2024 8:04 AM EST XR HUMERUS LEFT Routine 09/15/2024 8:00 AM EST documented in this encounter Results * XR Elbow 3+ Views Left (09/15/2024 8:07 AM EST) Anatomical Region Laterality Modality Upper Extremities, Elbow Left Radiogr aphic Imaging 09/15/2024 8:07 AM EST Narrative 09/15/2024 8:09 AM EST ? [facility] ? [address] ?[place] [address] ?XRay Report ? Signed ? Patient: Ovidio Lacy,Ginette ?MR ?? #: [id number] ? : 1975 ?Acct:[id number] ? Age/Sex: 49 / F ?ADM Date: 09/14/24 ? Loc: HO.HOSX ? Attending Dr: Madonna Melara MD ? Ordering Physician: Madonna Bonilla ?? Date of Service: 09/14/24 ?? Procedure(s): XR elbow LT min 3V ?? Accession Number(s): [id number] ? cc: Mackenzie Estrada; Madonna Bonilla ? [...] MD in OV> ?09/15/24 0808 ? DD/ 0807 ? TD/TT: 09/15/24 0807 ? Horse Breeder: ? Procedure Note Deepa Padgett - 09/15/2024 [facility] [address] [place] [address] [address] [place] [address] XRay Report Signed Patient: Ginette Arceo #: [id number] : 1975Acct:[id number] Age/Sex: 49 / FADM Date: 09/14/24 Loc: HO.HOSX Attending Dr: Madonna Melara MD Ordering Physician: Madonna Bonilla Date of Service: 09/14/24 Procedure(s): XR elbow LT min 3V Accession Number(s): [id number] cc: Mackenzie Estrada; Madonna Bonilla CLINICAL HISTORY: [...] by Arturo Woodson MD in OV> 09/15/24 0808 DD/ 0807 TD/TT: 09/15/24 0807 Horse Breeder: [facility] External Provider IMG XR PROCEDURES Edited Result - Final * XR Scapula Left (09/15/2024 8:04 AM EST) Anatomical Region Laterality Modality Body, Scapula Left Radiographic Rin ging 09/15/2024 8:04 AM EST Narrative 09/15/2024 8:06 AM EST ? [facility] ? [address] ?[place] [address] ?XRay Report ? Signed ? Patient: Ovidio Hamma,Ginette ?MR ?? #: [id number] ? : 1975 ?Acct:[id number] ? Age/Sex: 49 / F ?ADM Date: 02/14/25 ? Loc: HO.HOSX ? Attending Dr: Madonna Melara MD ? Ordering Physician: Madonna Bonilla ?? Date of Service: 09/14/24 ?? Procedure(s): XR scapula LT ?? Accession Number(s): [id number] ? cc: Mackenzie Estrada; Madonna Bonilla ? [...] by Arturo Woodson MD in OV> ?09/15/24 08 ? DD/ 08 ? TD/TT: 09/15/24 0804 ? Horse Breeder: ? Procedure Note Donrere, Image - 09/15/2024 [facility] [address] [place] [address] XRay Report Signed Patient: Ginette ArceoMR #: [id number] : 1975Acct:[id number] Age/Sex: 49 / FADM Date: 09/14/24 Loc: TAMARA Attending Dr: Madonna Melara MD Ordering Physician: Madonna Bonilla Date of Service: 09/14/24 Procedure(s): XR scapula LT Accession Number(s): [id number] cc: Mackenzie Estrada; Madonna Bonilla CLINICAL HISTORY: [...] signed by Arturo Woodson MD in OV> 09/15/24804 DD/ 3 TD/TT: 09/15/24803 Horse Breeder: us [facility] External Provider IMG XR PROCEDURES Edited Result - Final * XR Humerus Left (09/15/2024 8:00 AM EST) Anatomical Region Laterality Modality Upper Extremities, Humerus Left Radio graphic Imaging 09/15/2024 8:00 AM EST Narrative 09/15/2024 8:02 AM EST ? [facility] ? [address] ?[place] [address] ?XRay Report ? Signed ? Patient: Ovidio Lacy,Ginetet ?MR ?? #: [id number] ? : 1975 ?Acct:[id number] ? Age/Sex: 49 / F ?ADM Date: 09/14/24 ? Loc: HO.HOSX ? Attending Dr: Madonna Melara MD ? Ordering Physician: Madonna Bonilla ?? Date of Service: 09/14/24 ?? Procedure(s): XR humerus LT ?? Accession Number(s): [id number] ? cc: Mackenzie Estrada; Madonna Bonilla ? [...] DD/ 0800 ? TD/TT: 09/15/24 0800 ? Horse Breeder: ? Procedure Note Lorin, Deepa - 09/15/2024 [facility] [address] [place] [address] [address] [place] [address] XRay Report Signed Patient: Ginette Arceo #: [id number] : 1975Acct:[id number] Age/Sex: 49 / FADM Date: 09/14/24 Loc: TAMARA Attending Dr: Madonna Melara MD Ordering Physician: Madonna Bonilla Date of Service: 09/14/24 Procedure(s): XR humerus LT Accession Number(s): [id number] cc: Mackenzie Estrada; Madonna Bonilla CLINICAL HISTORY: M79.7 - Fibromyalgia 3 view left humerus Comparison: None Findings: No fractures or dislocations. No significant arthritic change. No radiopaque foreign body. IMPRESSION: 1. Normal left humerus This document has been electronically signed by: Arturo Woodson MD on 09/15/2024 08:00:53 Dictated By: Arturo Woodson MD Signed By: <Electronically signed by Arturo Woodson MD in OV> 09/15/24 08 DD/ 9 TD/TT: 09/15/24799 Horse Breeder: [facility] External Provider IMG XR PROCEDURES Edited Result - Final documented in this encounter Visit Diagnoses Not on filedocumented in this encounter Additional Health Concerns Assessment Noted Time PHQ-9 Depression Total Score: 2 04/30/20 24 10:41 AM EDT documented as of this encounter Care Teams Equipment Technician Relationship Specialty Start Date End Date Mackenzie Estrada MD 230 [place] [address] PCP - General Family Medicine 07/10/20 documented as of this encounter
--- OUTSIDE RECORDS SUMMARY | 2024-10-03 12:49 | XMS_ITS | Encounter Summary ---
Author Organization [employer] Address [address] 7t [place] [address] Care Team Providers Care Marble Helper Name Role Phone Mackenzie Estrada MD Primary Care Provider [phone] Encounter Details Date Type Department Care Team (Late st Contact Info) Description 10/01/2024 Telephone [facility] OPTOMETRY [address] [place] [address] Kailash, Libra, OD [address] [place] [address] Social History Tobacco Use Types Packs/Day Years [...] Description 10/11/2024 1:00 PM EDT Office Visit [facility] OPTOMETRY [address] [place] [address] KailashLibra damian, OD 230 [place] [address] 11/06/2024 9:45 AM EDT Office Visit [facility] MEDICINE [address] [place] [address] 12/28/2024 9:45 AM EDT Office Visit [facility] [address] [place] [address] Mackenzie Estrada MD 230 [place] [address] documented as of this encounter Goals Goal [...] documented as of this encounter Care Teams Marble Helper Relationship Specialty Start Date End Date Mackenzie Estrada MD [address] [place] [address] PCP - General Family Medicine 07/10/20 documented as of this encounter
--- OUTSIDE RECORDS SUMMARY | 2024-10-03 12:49 | XMS_ITS | Encounter Summary ---
Author Organization [employer] Address [address] 7t [place] [address] Care Team Providers Care Extractor Operator Solvent Process Name Role Phone Mackenzie Estrada MD Primary Care Provider [phone] Reason for Visit * Reason Comments Med Refill Encounter Details Date Type Department Care Team ([facility] st Contact Info) Description 08/26/2023 Refill [facility] MEDICINE 230 [place] [address] Sisi Kennedy FNP [address] [place], [place] [phone] Viral upper respiratory tract infection Social History [...] Visit [facility] OPTOMETRY [address] [place] [address] Kailash, Libra, OD 230 [place] [address] 11/06/2024 9:45 AM EDT Office Visit [facility] MEDICINE [address] [place] [address] 12/28/2024 9:45 AM EDT Office Visit [address] [address] Mackenzie Estrada MD 230 [place] [address] documented as of this encounter Goals Goal Patient Goal Type Associated Problems Recent Progress Patient-Stated? Author Quit using tobacco (cigarettes, smokeless, etc) Tobacco Use No Corey Lin, KelechiD documented as of this encounter Visit Diagnoses Diagnosis Viral upper respiratory tract infection Acute upper respiratory infections of unspecified site documented in this encounter Care Teams Extractor Operator Solvent Process Relationship Specialty Start Date End Date Mackenzie Estrada MD 230 [place] [address] PCP - General Family Medicine 07/10/20 documented as of this encounter
--- OUTSIDE RECORDS SUMMARY | 2024-10-03 12:49 | XMS_ITS | Encounter Summary ---
Author Organization [employer] Address 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 [...] the past 12 months, has t he [employer] gas, oil or water company threatened to [...] Description 10/11/2024 1:00 PM EDT Office Visit [facility] OPTOMETRY [address] [place] [address] Libra Linder, LAW 230 [place] [address] 11/06/2024 9:45 AM EDT Office Visit [facility] MEDICINE [address] [place] [address] 12/28/2024 9:45 AM EDT Office Visit [facility] MEDICINE [address] [place] [address] Mackenzie Estrada MD 230 [place] [address] documented as of this encounter Goals Goal [...] documented as of this encounter Care Teams Heel Former Relationship Specialty Start Date End Date Mackenzie Estrada MD 230 [place] [address] PCP - General Family Medicine 07/10/20 documented as of this encounter
--- OUTSIDE RECORDS SUMMARY | 2024-10-03 12:49 | XMS_ITS | Encounter Summary ---
Author Organization [employer] Address [address] 7t [place] [address] Care Team Providers Care Printing Mechanist Name Role Phone Mackenzie Estrada MD Primary Care Provider [phone] Reason for Visit * Reason Onset Date Comments Error 08/16/2023 Encounter Details Date Type Department Care Team ([facility] Contact Info) Description 08/16/2023 Telephone [facility] MEDICINE 230 [place], [place] [phone] Mackenzie Estrada MD 230 [place], [place] [phone] Error Social History Tobacco Use Types Packs/Day [...] Description 10/11/2024 1:00 PM EDT Office Visit [facility] OPTOMETRY [address] [place], [place] [phone] KailashLibra damian, OD 230 [place] [address] 11/06/2024 9:45 AM EDT Office Visit [facility] MEDICINE [address] [place] [address] 12/28/2024 9:45 AM EDT Office Visit [address] [address] Mackenzie Estrada MD 230 [place] [address] documented as of this encounter Goals Goal Patient Goal Type Associated Problems Recent Progress Patient-Stated? Author Quit using tobacco (cigarettes, smokeless, etc) Tobacco Use No Corey Lin, Bailey documented as of this encounter Visit Diagnoses Not on filedocumented in this encounter Care Teams Printing Mechanist Relationship Specialty Start Date End Date Mackenzie Estrada MD [address] [place] [address] PCP - General Family Medicine 07/10/20 documented as of this encounter
--- OUTSIDE RECORDS SUMMARY | 2024-10-03 12:49 | XMS_ITS | Encounter Summary ---
Author Organization [employer] Address [address] 7t [place] [address] Care Team Providers Care 911 Emergency Dispatcher Name Role Phone Mackenzie Estrada MD Primary Care Provider [phone] Reason for Visit * Reason Onset Date Comments Med Refill 09/19/2024 Encounter Details Date Type Department Care Team ([facility] st Contact Info) Description 09/19/2024 Refill [facility] MEDICINE 230 [place], [place] [phone] Kaylene Samano, RN Osteonecrosis of hip with collapse of [...] Telephone Encounter - Kaylene Samano RN - 09/19/2024 10:40 AM EST Spoke with Thi at [facility] pharmacy, requested Percocet RX for 09/20/24 be D/C'd. documented in this encounter Plan of Treatment Upcoming Encounters Date Type Department Care Team (Late st Contact Info) Description 10/11/2024 1:00 PM EDT Office Visit [facility] OPTOMETRY [address] [place] [address] Libra Linder, OD 230 [place] [address] 11/06/2024 9:45 AM EDT Office Visit [facility] MEDICINE 230 [place] [address] 12/28/2024 9:45 AM EDT Office Visit [facility] MEDICINE [address] [place] [address] Mackenzie Estrada MD 230 [place] [address] documented as of this encounter Goals Goal [...] documented as of this encounter Care Teams 911 Emergency Dispatcher Relationship Specialty Start Date End Date Mackenzie Estrada MD 230 [facility] [place] [address] PCP - General Family Medicine 07/10/20 documented as of this encounter
--- OUTSIDE RECORDS SUMMARY | 2024-10-03 12:49 | XMS_ITS | Encounter Summary ---
Author Organization [employer] Address [address] [facility] 7t [place] [address] Care Team Providers Care Security Site Supervisor Name Role Phone Mackenzie Estrada MD Primary Care Provider [phone] Encounter Details Date Type Department Care Team ([facility] st Contact Info) Description 10/02/2024 Telephone [employer] 230 [place], [place] [phone] Mackenzie Estrada MD 230 [place] [address] Social History Tobacco Use Types Packs/Day Years [...] encounter Miscellaneous Notes * Telephone Encounter - Robert Riggs - 10/02/2024 8:14 AM EST [facility] [place]; Pt states she is having pain on her right breast, given that pt is having symptomatic can a diagnotic be order ? Facility is recommending to follow up with the patient and order a correct testing. Please review and advice . documented in this encounter Plan of Treatment Upcoming Encounters Date Type Department Care Team (Late st Contact Info) Description 10/11/2024 1:00 PM EDT Office Visit [facility] OPTOMETRY [address] [place] [address] Kailash, Libra, OD 230 [place] [address] 11/06/2024 9:45 AM EDT Office Visit [facility] MEDICINE 230 [place] [address] 12/28/2024 9:45 AM EDT Office Visit [facility] MEDICINE [address] [place] [address] Mackenzie Estrada MD 230 [place] [address] documented as of this encounter Goals Goal [...] documented as of this encounter Care Teams Security Site Supervisor Relationship Specialty Start Date End Date Mackenzie Estrada MD 230 [place] [address] PCP - General Family Medicine 07/10/20 documented as of this encounter
--- OUTSIDE RECORDS SUMMARY | 2024-10-03 12:49 | XMS_ITS | Encounter Summary ---
Author Organization [employer] Address [address] 7t [place] [address] Care Team Providers Care Laborer Cutting Tool Name Role Phone Mackenzie Estrada MD Primary Care Provider [phone] Reason for Visit * Reason Comments Med Refill Encounter Details Date Type Department Care Team ([facility] st Contact Info) Description 09/24/2024 Refill [facility] MEDICINE 230 [place], [place] [phone] Mackenzie Estrada MD 230 [place], [place] [phone] Gastroesophageal reflux disease with hiatal hernia Social History Tobacco Use Types Packs/Day Years [...] Description 10/11/2024 1:00 PM EDT Office Visit [facility] OPTOMETRY [address] [place] [address] Libra Linder, OD 230 [place] [address] 11/06/2024 9:45 AM EDT Office Visit [facility] MEDICINE [address] [place] [address] 12/28/2024 9:45 AM EDT Office Visit [facility] MEDICINE [address] [place] [address] Mackenzie Estrada MD 230 [place] [address] documented as of this encounter Goals Goal Patient Goal Type Associated Problems Recent Progress Patient-Stated? Author Quit using tobacco (cigarettes, smokeless, etc) Tobacco Use No Corey Lin, PharmD documented as of this encounter Visit Diagnoses Diagnosis Gastroesophageal reflux disease with hiatal hernia Esophageal reflux documented in this encounter Additional Health Concerns Assessment Noted Time PHQ-9 Depression Total Score: 2 04/30/20 24 10:41 AM EDT documented as of this encounter Care Teams Laborer Cutting Tool Relationship Specialty Start Date End Date Mackenzie Esrtada MD 230 [place] [address] PCP - General Family Medicine 07/10/20 documented as of this encounter
--- OUTSIDE RECORDS SUMMARY | 2024-10-03 12:49 | XMS_ITS | Clinical Summary ---
Author Organization [facility] Address [address] [place] [address] Support Name Relationship Address Phone Brayden Hernandez Emergency Contact [address] [place] [address] Care Team Providers Care Ingot Caster Name Role Phone Abdullahi Lizarraga MD Primary Care Provider [phone] Allergies Active Allergy Reactions Criticality Noted Date [...] age to complete this topic Care Teams Ingot Caster Relationship Specialty Start Date End Date Abdullahi Lizarraga MD [address] [place] [address] PCP - General Nephrology 03/10/18
--- OUTSIDE RECORDS SUMMARY | 2024-10-03 12:49 | XMS_ITS | Encounter Summary ---
Author Organization [employer] Address [address] 7t [place] [address] Care Team Providers Care Fence Post Cutter Name Role Phone Mackenzie Estrada MD Primary Care Provider [phone] Reason for Visit * Reason Comments Med Refill Encounter Details Date Type Department Care Team ([facility] Contact Info) Description 07/26/2023 Refill [facility] MEDICINE 230 [place], [place] [phone] Name, MD Mark 230 [place] [address] Pain in both hands Social History Tobacco [...] Description 10/11/2024 1:00 PM EDT Office Visit [facility] OPTOMETRY [address] [place] [address] Libra Linder, OD 230 [place] [address] 11/06/2024 9:45 AM EDT Office Visit [facility] MEDICINE [address] [place] [address] 12/28/2024 9:45 AM EDT Office Visit [address] [address] Mackenzie Estrada MD 230 [place], [place] [phone] documented as of this encounter Goals Goal Patient Goal Type Associated Problems Recent Progress Patient-Stated? Author Quit using tobacco (cigarettes, smokeless, etc) Tobacco Use No Corey Lin, PharmD documented as of this encounter Visit Diagnoses Diagnosis Pain in both hands documented in this encounter Care Teams Fence Post Cutter Relationship Specialty Start Date End Date Mackenzie Estrada MD 230 [place], [place] [phone] PCP - General Family Medicine 07/10/20 documented as of this encounter
--- OUTSIDE RECORDS SUMMARY | 2024-10-03 12:49 | XMS_ITS | Encounter Summary ---
Author Organization [employer] Address [address] 7t [place] [address] Care Team Providers Care News Editor Name Role Phone Mackenzie Estrada MD Primary Care Provider [phone] Encounter Details Date Type Department Care Team (Late st Contact Info) Description 05/10/2024 Orders Only [facility] MEDICINE 230 [place], [place] [phone] Mackenzie Estrada MD 230 [place], [place] [phone] Social History Tobacco Use Types Packs/Day Years [...] [facility] OPTOMETRY [address] [place] [address] Kailash, Libra, OD 230 [place] [address] 11/06/2024 9:45 AM EDT Office Visit [facility] MEDICINE [address] [place] [address] 12/28/2024 9:45 AM EDT Office Visit [facility] MEDICINE [address] [place] [address] Mackenzie Estrada MD 230 [place] [address] documented as of this encounter Goals Goal Patient Goal Type Associated Problems Recent Progress Patient-Stated? Author Quit using tobacco (cigarettes, smokeless, etc) Tobacco Use Corey Cornell, PharmD documented as of this encounter Visit Diagnoses Not on filedocumented in this encounter Additional Health Concerns Assessment Noted Time PHQ-9 Depression Total Score: 2 04/30/20 24 10:41 AM EDT documented as of this encounter Care Teams News Editor Relationship Specialty Start Date End Date Mackenzie Estrada MD 230 [place] [address] PCP - General Family Medicine 07/10/20 documented as of this encounter
--- OUTSIDE RECORDS SUMMARY | 2024-10-03 12:49 | XMS_ITS | Encounter Summary ---
Author Organization [employer] [facility] Address [address] [facility] 7t [place] [address] Care Team Providers Care Acting Manager Name Role Phone Mackenzie Estrada MD Primary Care Provider [phone] Reason for Visit * Reason Comments Med Refill Encounter Details Date Type Department Care Team ([facility] Contact Info) Description 08/25/2022 Refill [facility] MEDICINE 230 [place], [place] [phone] Mackenzie Estrada MD 230 [place], [place] [phone] Pain in both hands Social History Tobacco [...] Upcoming Encounters Date Type Department Care Team ([facility] Contact Info) Description 10/11/2024 1:00 PM EDT Office Visit [facility] OPTOMETRY [address] [place] [address] AkilashLibra damian, OD 230 [place] [address] 11/06/2024 9:45 AM EDT Office Visit [facility] MEDICINE [address] [place] [phone] 12/28/2024 9:45 AM EDT Office Visit [facility] MEDICINE [address] [place] [address] Mackenzie Estrada MD [address] [place] [address] documented as of this encounter Visit Diagnoses Diagnosis Pain in both hands documented in this encounter Care Teams Acting Manager Relationship Specialty Start Date End Date Mackenzie Estrada MD [address] [place] [phone] PCP - General Family Medicine 07/10/20 documented as of this encounter
== END 2024-10-03 12:38 | disposition home or self-care (01) ==
PROVIDERS: Visit Provider Internal Medicine Cardiovascular Disease
DX: I20.89 Other forms of angina pectoris (principal); I25.5 Ischemic cardiomyopathy
CPT/HCPCS: 93010; 99214

== ENCOUNTER → 2024-10-03 10:42 | Outpatient (BNVA) | payer MEDICAID, SELFPAY | PROVIDERS: Visit Provider Internal Medicine Cardiovascular Disease | DX: I20.89 Other forms of angina pectoris (principal); I25.5 Ischemic cardiomyopathy; I21.4 Non-ST elevation (NSTEMI) myocardial infarction | CPT/HCPCS: 93005; 99212 ==

== ENCOUNTER 2024-10-16 09:59 | Outpatient (AMB) | payer MEDICAID, SELFPAY ==
--- NOTE | 2024-10-16 10:14 | A.OFFVIS_ITS ---
Vital Signs 10/16/24 10:22 Height 5 ft 6 in Weight 178 lb 12.718 oz BMI 28.9 BP 100/64 Blood Pressure Location Lt brachial Position Sitting Pulse 72 Pulse Source Pulse Oximeter Pulse Oximetry (%) 97 Oxygen Delivery Method Room Air Intake Visit Reasons: RA Intake Note: Patient presents for RA. Housing Relocation Required: Yes Housing Relocation Language: Managed Security Sales Consultant Services: Housing Relocation Present Housing Relocation Name: Jason [id number] Information Interpreted: non-clinical & clinical Allergies almond [ALMONDS] Allergy (Severe, Verified 10/16/24 10:21) ANAPHYLAXIS adhesive tape [ADHESIVE TAPE] Allergy (Intermediate, Verified 10/16/24 10:21) RASH morphine [MORPHINE] Allergy (Intermediate, Verified 10/16/24 10:21) GI UPSET, difficulty breathing leflunomide Adverse Reaction (Intermediate, Verified 10/16/24 10:21) twitching tramadol [TRAMADOL] Adverse Reaction (Unknown, Verified 10/16/24 10:21) NAUSEA & VOMITING Medication List - Last Reconciled 10/16/24 by Bridget Corley MD acetaminophen (Tylenol Extra Strength) 500 mg PO QID PRN albuterol sulfate 90 mcg/actuation 2 puffs inhalation Q6H PRN alprazolam 1 mg PO BEDTIME PRN apixaban (Eliquis) 5 mg PO BID ascorbic acid (vitamin C) (Vitamin C) 1,000 mg (2 x 500 mg) PO QAM atorvastatin 80 mg PO DAILY benztropine 0.5 mg PO DAILY cetirizine 10 mg PO QAM cholecalciferol (vitamin D3) (Vitamin D3) 25 mcg PO DAILY clopidogrel 75 mg PO DAILY cyanocobalamin (vitamin B-12) 1,000 mcg IM QMONTH cyclobenzaprine 5 mg PO TID PRN diclofenac sodium 1% 2 grams topical QID docusate sodium (Colace) 100 mg PO BID PRN doxycycline hyclate 100 mg PO BID 7 days famotidine 20 mg PO BID ferrous sulfate 325 mg PO QAM folic acid 1 mg PO DAILY gabapentin 400 mg PO TID lidocaine 5% (Lidoderm) 1 patch topical DAILY lidocaine-prilocaine 2.5-2.5 % 1 appl topical Q8-12H PRN methotrexate sodium 25 mg (10 x 2.5 mg) PO QWEEK metoprolol succinate ER 50 mg PO DAILY nicotine 1 patch transdermal Q24H nicotine 1 patch topical QAM nicotine (polacrilex) 4 mg PO DIRECTED oxycodone-acetaminophen 7.5-325 mg 1 tab PO Q8H PRN pantoprazole 40 mg PO DAILY polyethylene glycol 3350 17 grams PO DAILY PRN prednisone 40 mg (2 x 20 mg) PO DAILY risperidone 0.5 mg PO DAILY PRN sertraline (Zoloft) 75 mg PO DAILY trazodone 150 mg PO BEDTIME PRN umeclidinium 62.5 mcg/actuation (Incruse Ellipta) 1 inh inhalation DAILY ursodiol 250 mg PO BID vitamin A 1 cap PO DAILY HPI Comments Details: Patient is a 49-year-old female with hypertension complicated by NSTEMI status post stenting with ischemic cardiomyopathy, hyperlipidemia complicated by peripheral arterial disease, unprovoked DVT on Eliquis, seropositive nodular rheumatoid arthritis complicated by left femur avascular necrosis secondary to prednisone use and fibromyalgia Interval History: Patient last seen 07/03/2024. At that time she was following up for her rheumatoid arthritis. She had to recently started Orencia infusions (05/2024) but had discontinued her methotrexate. The exam at that time had shown improvement on the Orencia however she still had swollen and tender joints. Her methotrexate was restarted at 25 mg p.o. weekly split dosing She was also referred to surgery for biopsy of calcific masses on her elbows. Today patient reports joint pain and swelling involving her bilateral hands, wrists and knees. Making it difficult to do her ADLs. She was very tearful during the examination. Rheumatologic History: Seropositive nodular RA RF++CCP++ On prednisone throughout until it was discontinued 10/2023 due to left femur avascular necrosis methotrexate and hydroxychloroquine ?2019 Xeljanz 05/2020-08/2020(ineffective) 2020 methotrexate and Humira(HCQ stopped - ?vision changes). 06/2022 Humira stopped due to poor repsonse 06/2022 methotrexate and Actemra 12/2022: Actemra SC stopped by the patient. She had some leg swelling as well. 03/10/2023 and 03/24/23: 1 g on each day rituximab administered. Had SOB associated with administration Olumiant 08/2023 effective. Stopped because she has history of DVT Leflunomide added 01/2024 ineffective and caused twitching Orencia infusions 05/2024 SLE January 2022: ++DsDNA positive. Rheumatoid factor and CCP antibody markedly positive. This looks more like picture of seropositive RA. Current Rheumatology Medication(s): Orencia infusions 750mg every 4 weeks (weight 81kg) Methotrexate 25 mg p.o. weekly Folic acid 1 mg daily PFSH Medical History Iron deficiency Seropositive rheumatoid arthritis Skin lesion Anxiety Achilles tendinitis Superficial femoral artery occlusion Knee pain, left Depression Hx of peripheral pulmonary artery stenosis PAD (peripheral artery disease) History of chemotherapy Cancer of heart Bone cancer Lung cancer Bleeding hemorrhoid Degeneration, intervertebral disc, lumbar Chronic GERD Degeneration of intervertebral disc at C4-C5 level Osteoarthritis of spine with radiculopathy, lumbar region Fibromyalgia Esophageal dysphagia Vitamin D deficiency Systemic lupus erythematosus Seropositive rheumatoid arthritis Rheumatoid arthritis involving multiple sites Gallstones Stress incontinence in female Nocturia Urgency-frequency syndrome De Quervain's disease (tenosynovitis) Depressive disorder Acute arthritis Hodgkin disease Surgical History History of heart surgery History of surgical removal of skin lesion (~07/13/23) History of angioplasty of vein History of biopsy H/O tubal ligation Hx of endoscopy Hx laparoscopic cholecystectomy Hx of colonoscopy History of esophagogastroduodenoscopy (EGD) History of repair of inguinal hernia History of lymph node dissection of left axilla Family History Maternal Grandmother Ovarian cancer Social History Household Members: Significant Other Housing: Apartment Are you a primary respiratory care assistant to a significant other at home: No Alcohol intake: never Comment: son at bedside Patient Tobacco Use Status: Never used Tobacco Tobacco use type: Cigarette Cigarette Packs Per Day: 1 Cigarettes Per Day: 20.0 Substance Use Type: Marijuana Advance Directives Date on File: 02/24/24 service: No Current occupational status: disabled 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 of Systems Const Details: Review of Systems Constitutional: Denies fever, chills, weight loss ENT: Denies vision changes, eye pain or eye redness, dental caries, dry mouth GI: Denies nausea, vomiting, diarrhea, abdominal pain, change in BM Pulm: Denies SOB, VALENTIN, hemoptysis, wheezing Cards: Denies chest pain, palpitations Skin: Denies Raynaud's, rash, nail changes, photosensitivity, RAILROAD REPAIRER: Denies headaches, weakness, paresthesias, recurrent falls MSK: as per HPI All other systems reviewed and are unremarkable except noted above Physical Exam Vital Signs: Last Vital Signs Pulse 72 10/16/24 10:22 BP 100/64 10/16/24 10:22 Pulse Ox 97 10/16/24 10:22 Oxygen Delivery Method Room Air 10/16/24 10:22 BMI result Body Mass Index 28.9 Vital signs reviewed Physical Examination CONSTITUITIONAL Patient alert and cooperative. Unable to get up on the examination table and so she was examined in the chair. HEENT Conjunctiva and sclera clear. ?Pupils equal round and reactive to light. ?No lymphadenopathy. ? CHEST/RESPIRATORY SYSTEM Normal respiratory effort and able to speak in complete sentences. ?Clear to auscultation bilaterally. ?No crackles, rales, rhonchi, wheezes heard. CARDIAC SYSTEM Regular rate and rhythm. ?S1 and S2 heard no murmurs. ?Radial pulses intact bilaterally MSK Hands: ?Unable to make a fist. Swelling involving the MCPs, PIPs and DIPs with warmth to touch indicating significant synovitis. Wrists: ?Decreased range of motion to bilateral wrists secondary to pain. Exquisite tenderness to even light touch of the wrist joint bilaterally with swelling and warmth to touch. Elbows: Full range of motion. 3 cm masses bilaterally. Warm to touch. No drainage. Shoulders: Decreased range of motion bilaterally Hips: Not examined as she was in the chair. Knees: ?Full range of motion. ?Bilateral tenderness to palpation Ankles: Full range of motion. Tenderness to palpation bilaterally Feet: ?Positive squeeze test bilaterally. With tenderness to palpation of scattered MTPs. Tender points:?No tenderness to palpation of the bilateral trapezius, supraspinatus, greater trochanters, anterior costochondral junctions, bilateral gluteal areas, bilateral suboccipital muscle insertions SKIN Skin intact without rashes. Results Reviewed Results Reviewed: Laboratory Tests 09/10/24 10/08/24 11:05 09:36 WBC 5.6 RBC 3.91 L Hgb 10.9 L Hct 34.2 L Plt Count 317 ESR 95 H 101 H Sodium 139 Potassium 4.5 Chloride 106 Carbon Dioxide 25 BUN 12 Creatinine 0.79 Total Bilirubin 0.2 0.3 AST 23 28 ALT 13 10 Alkaline Phosphatase 112 113 C-Reactive Protein 1.80 H 2.76 H Immunology labs 11/07/23 02/14/24 04/11/24 12:03 11:00 10:26 Rheumatoid Factor 482.4 H 525.0 H Cycl Citrul Peptide IgG >250 H Anti-ds DNA Titer (Crith) 1:320 H Anti-ds DNA (Crithidia) Positive A Complement C3 123 Complement C4 24 Infectious serologies 11/07/23 11/17/23 04/11/24 12:03 08:56 10:26 Hepatitis A IgM Ab Nonreactive Hep Bs Antigen Negative Hep Bs Antibody NONREACTIVE Hep B Core Total Ab Nonreactive Hepatitis C Ab (EIA) Nonreactive Nonreactive HIV 1&2 Ab/P24 Ag 4thGn Nonreactive TB Test (T-Spot) Com Negative Assessment & Plan Assessment & Plan (1) Seropositive rheumatoid arthritis: Comment: RF++CCP++ On prednisone throughout until it was discontinued 10/2023 due to left femur avascular necrosis methotrexate and hydroxychloroquine ?2019 Xeljanz 05/2020-08/2020(ineffective) 2020 methotrexate and Humira(HCQ stopped - ?vision changes). 06/2022 Humira stopped due to poor repsonse 06/2022 methotrexate and Actemra 12/2022: Actemra SC stopped by the patient. She had some leg swelling as well. 03/10/2023 and 03/24/23: 1 g on each day rituximab administered Olumiant 08/2023 effective Leflunomide added 01/2024 ineffective and caused twitching Orencia infusions 05/2024 - 09/2024. Ineffective with breakthrough synovitis Actemra infusions 09/2024 Code(s): M05.9 - Rheumatoid arthritis with rheumatoid factor, unspecified Category: Medical Plan: #Seropositive RA Patient is a 49-year-old female with seropositive rheumatoid arthritis currently in a significant flare of her disease as evidenced by synovitis involving multiple joints bilaterally. She has been on the Orencia since 2023 and still has breakthrough synovitis on this regimen. She has significantly elevated inflammatory markers ESR and CRP. Patient does not want to take any at home injectables because of her history of DVT. Currently on Eliquis. We will continue the methotrexate split dosing weekly as well as folic acid daily. We will stop Orencia infusions and start Actemra infusion 8 milligram/kilogram every 4 weeks. Patient has been having a very difficult to control rheumatoid arthritis which could be on a background of her smoking. Patient states that she recently quit smoking however she did smell like smoke when she came into the office. I did inform her that her smoking we will make her rheumatoid arthritis that much more difficult to treat. Unfortunately because of her avascular necrosis of her hips at this time I do not think it appropriate to prescribe her prednisone, and patient agrees she is very cautious about taking further prednisone doses. Plan - Stop Orencia infusions - Start Actemra infusions. 8mg/kg every 4 weeks - Continue methotrexate 25mg every week split dosing - Folic acid 1 mg every day - Check lipid panel and infectious labs today - RTC 3 months - Labs before visit: CBC, CMP, ESR, CRP, hepatitis panel, T spot, lipid panel (2) Encounter for monitoring tocilizumab therapy: Code(s): Z51.81 - Encounter for therapeutic drug level monitoring; Z79.620 - termite control 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 (current) use of immunosuppressive biologic Plan: #Long-term Use of Tocilizumab Discussed the risks and benefits of tocilizumab with the management of this patient's rheumatic condition. ? Benefits include decreased pain, improved mortality, improved quality of life Risks include LFT abnormalities, elevated triglycerides, GI perforations Contraindicated in a patient with history of diverticulitis Monitoring: ?CBC, CMP, triglycerides (3) Mass of both elbows: Code(s): R22.33 - Localized swelling, mass and lump, upper limb, bilateral Plan: #Mass of both elbows Patient with bilateral masses on elbows. Differentials include rheumatoid nodules, gouty tophus, calcium deposits, inflamed bursa. We will investigate how to get ultrasound of her elbows to see what the architecture of these masses are. We may need to send her to get a biopsy. Plan I spent 45 minutes reviewing the record and labs, taking a history, examining the patient, discussing the treatment plan, ordering diagnostic work up and documenting in the medical record Orders: Orders Hepatitis A,B,C Profile Today Z51.81 - Encounter for therapeutic drug level monitoring, Z79.620 - detention (current) use of immunosuppressive biologic T Spot TB Today Z51.81 - Encounter for therapeutic drug level monitoring, Z79.620 - termite control 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 (current) use of immunosuppressive biologic Lipid Panel Today Z51.81 - Encounter for therapeutic drug level monitoring, Z79.620 - termite control 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 (current) use of immunosuppressive biologic Uric Acid Today M10.9 - Gout, unspecified C Reactive Protein 3 Months M05.9 - Rheumatoid arthritis with rheumatoid factor, unspecified Erythrocyte Sedimentation Rate 3 Months M05.9 - Rheumatoid arthritis with rheumatoid factor, unspecified Complete Blood Count Auto Diff 3 Months M05.9 - Rheumatoid arthritis with rheumatoid factor, unspecified Comprehensive Met. Panel 3 Months M05.9 - Rheumatoid arthritis with rheumatoid factor, unspecified Lipid Panel 3 Months M05.9 - Rheumatoid arthritis with rheumatoid factor, unspecified Referrals Infusion Center Notification M05.9 - Rheumatoid arthritis with rheumatoid factor, unspecified Medications: Refilled methotrexate sodium Split dose into 5 tabs in the morning and 5 tabs at night 25 mg (10 x 2.5 mg) PO QWEEK 120 tabs 1RF folic acid 1 mg PO DAILY 90 tabs 1RF Coding Level of Care Code Est Pt Level 5 (79940) Complex EM visit Add On G2211 Diagnoses Seropositive rheumatoid arthritis M05.9 Encounter for monitoring tocilizumab therapy Z51.81; Z79.620 Mass of both elbows R22.33
[2024-10-16 10:22] VITALS: BP 100/64; PULSE 72; O2SAT 97; BMI 28.9
--- OUTSIDE RECORDS SUMMARY | 2024-10-16 11:19 | XMS_ITS | Clinical Summary ---
Author Organization [facility] Address [address] [place] [address] Care Team Providers Care Screen Printing Machine Operator Helper Name Role Phone Sanjay Cruz MD Primary Care Provi [facility] Surgical History Surgery Date Site/Laterality Comments OTHER SURGICAL HISTORY 05/12/2020 Right PROCEDURE: NM BX/EXC LYMPH NODE OPEN SUPERFICIAL; COMMENT: Axillary Lymph Node biopsy- Benign Lymphoid Tissue OTHER SURGICAL HISTORY 12/19/2019 Right PROCEDURE: NM BX/EXC LYMPH NODE NEEDLE SUPERFICIAL; COMMENT: Axillary Lymph node -results were non daignostic Medical History Medical History Date Comments Anxiety DX:Anxiety Migraine DX:Migraine History of DVT (deep vein thrombosis) 05/23/2020 DX:History of DVT (deep vein thrombosis); COMMENT: 01/2005 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
--- OUTSIDE RECORDS SUMMARY | 2024-10-16 11:19 | XMS_ITS | Clinical Summary ---
Author Organization [facility] Address [address] [place] [address] Support Name Relationship Address Phone Brayden Hernandez Emergency Contact [address] [place] [address] Care Team Providers Care Stagecraft Teacher Name Role Phone Abdullahi Lizarraga MD Primary Care Provider [phone] Allergies Active Allergy Reactions Criticality Noted Date [...] age to complete this topic Care Teams Stagecraft Teacher Relationship Specialty Start Date End Date Abdullahi Lizarraga MD [address] [place] [address] PCP - General Nephrology 03/10/18
== END 2024-10-16 11:14 | disposition home or self-care (01) ==
LOC: HO.RHE 09:59
PROVIDERS: PCP General Practice; Visit Provider Student in an Organized Health Care Education/Training Program
DX: M05.79 Rheumatoid arthritis with rheumatoid factor of multiple sites without organ or systems involvement (principal); Z51.81 Encounter for therapeutic drug level monitoring; Z79.620 Long term (current) use of immunosuppressive biologic; R22.33 Localized swelling, mass and lump, upper limb, bilateral
CPT/HCPCS: 99215

== ENCOUNTER → 2024-10-16 09:59 | Outpatient (BNVA) | payer MEDICAID, SELFPAY | PROVIDERS: PCP General Practice; Visit Provider Student in an Organized Health Care Education/Training Program | DX: M05.9 Rheumatoid arthritis with rheumatoid factor, unspecified (principal); R22.33 Localized swelling, mass and lump, upper limb, bilateral; Z51.81 Encounter for therapeutic drug level monitoring; Z79.620 Long term (current) use of immunosuppressive biologic | CPT/HCPCS: 99212 ==

== ENCOUNTER 2024-10-16 11:18 | Outpatient (REF) | payer MEDICAID, SELFPAY ==
[2024-10-16 13:34] LABS: Cholesterol 172 mg/dL (<200); HDL Cholesterol 40 mg/dL (>40); LDL Cholesterol Calculated 111 mg/dL (<100); Triglycerides 105 mg/dL (<150)
[2024-10-16 13:54] LABS: HBS Num1 4.94 mIU/mL (0-7.99); HBc Num1 0.56 S/CO (0.00-0.79); HBsAGNum1 0.34 S/CO (0.00-0.99); Hepatitis A Antibody IgM 0.14 Index (0-0.79); Hepatitis B Core Antibody Nonreactive (Nonreactive); Hepatitis B Surface Antigen Negative (Negative); ~HepC Num1 0.32 S/CO (0.00-0.79); ~Hepatitis A Antibody IgM Nonreactive (Nonreactive); ~Hepatitis B Surface Antibody NONREACTIVE (Nonreactive); ~Hepatitis C Antibody Nonreactive (Nonreactive)
[2024-10-19 06:22] LABS: TS Negative Control Passed; TS Panel A 0; TS Panel B 0; TS Positive Control Passed; TSpotTB Negative (Negative)
== END 2024-10-16 11:19 | disposition home or self-care (01) ==
LOC: HO.10HDL 11:18
PROVIDERS: Visit Provider Student in an Organized Health Care Education/Training Program
DX: Z51.81 Encounter for therapeutic drug level monitoring (principal); Z79.620 Long term (current) use of immunosuppressive biologic
CPT/HCPCS: 36415; 80061; 86481; 86704; 86706; 86709; 86803; 87340

== ENCOUNTER → 2024-10-17 10:16 | Outpatient (REF) | payer MEDICAID, SELFPAY ==
--- OUTSIDE RECORDS SUMMARY | 2024-10-17 12:01 | XMS_ITS | Encounter Summary ---
Author Organization [employer] Address [address] [place] [address] Care Team Providers Care Regulatory Affairs Strategy Specialist Name Role Phone Mackenzie Estrada MD Primary Care Provider [phone] Reason for Visit * Reason Comments Blurred Vision Encounter Details Date Type Department Care Team ([facility] st Contact Info) Description 10/11/2024 1:00 PM EDT Office Visit [facility] OPTOMETRY [address] [place] [address] Kailash, Libra, OD [address] [place] [address] Presbyopia of both eyes (Primary Dx); Subjective visual disturbance; Dry eyes; Early cataracts, bilateral; Chorioretinal scar, left Social History Tobacco Use Types Packs/Day Years [...] Care Team (Late st Contact Info) Description 11/06/2024 9:45 AM EDT Office Visit [facility] MEDICINE [address] [place] [phone] 12/28/2024 9:45 AM EDT Office Visit [facility] MEDICINE [address] [place] [phone] Mackenzie Estrada MD [address] [place] [address] documented as of this encounter Goals Goal Patient Goal Type Associated Problems Recent Progress Patient-Stated? Author Quit using tobacco (cigarettes, smokeless, etc) Tobacco Use Corey Cornell, KelechiD documented as of this encounter Visit Diagnoses Diagnosis Presbyopia of both eyes- Primary Subjective visual disturbance Unspecified subjective visual disturbance Dry eyes Unspecified tear film insufficiency Early cataracts, bilateral Chorioretinal scar, left documented in this encounter Additional Health Concerns Assessment Noted Time PHQ-9 Depression Total Score: 2 04/30/20 24 10:41 AM EDT documented as of this encounter Care Teams Regulatory Affairs Strategy Specialist Relationship Specialty Start Date End Date Mackenzie Estrada MD [address] [place] [phone] PCP - General Family Medicine 07/10/20 documented as of this encounter
--- OUTSIDE RECORDS SUMMARY | 2024-10-17 12:01 | XMS_ITS | Encounter Summary ---
Author Organization [employer] Address [address] [place] [address] Care Team Providers Care Finished Hardware Erector Name Role Phone Mackenzie Estrada MD Primary Care Provider [phone] Reason for Visit * Reason Comments Med Refill Encounter Details Date Type Department Care Team ([facility] Contact Info) Description 12/10/2022 Refill [facility] MEDICINE [address] [place] [phone] Mackenzie Estrada MD [address] [place], [place] [phone] Pain in both hands Social History Tobacco [...] Upcoming Encounters Date Type Department Care Team ([facility] Contact Info) Description 11/06/2024 9:45 AM EDT Office Visit [facility] MEDICINE [address] [place] [phone] 12/28/2024 9:45 AM EDT Office Visit [facility] MEDICINE [address] [place] [phone] Mackenzie Estrada MD [address] [place], [place] [phone] documented as of this encounter Visit Diagnoses Diagnosis Pain in both hands documented in this encounter Care Teams Finished Hardware Erector Relationship Specialty Start Date End Date Mackenzie Estrada MD [address] [place] [address] PCP - General Family Medicine 07/10/20 documented as of this encounter
--- OUTSIDE RECORDS SUMMARY | 2024-10-17 12:01 | XMS_ITS | Encounter Summary ---
Author Organization [employer] Address [address] [place] [address] Care Team Providers Care Electrical Engineer Mep Name Role Phone Mackenzie Estrada MD Primary Care Provider [phone] Encounter Details Date Type Department Care Team (Latest Contact Info) Description 10/11/2024 Travel Social History Tobacco Use Types Packs/Day [...] Description 11/06/2024 9:45 AM EDT Office Visit [facility] MEDICINE [address] [place] [address] 12/28/2024 9:45 AM EDT Office Visit [address] [address] Mackenzie Estrada MD [address] [place] [phone] documented as of this encounter Goals Goal [...] documented as of this encounter Care Teams Electrical Engineer Mep Relationship Specialty Start Date End Date Mackenzie Estrada MD [address] [place] [phone] PCP - General Family Medicine 07/10/20 documented as of this encounter
--- OUTSIDE RECORDS SUMMARY | 2024-10-17 12:01 | XMS_ITS | Clinical Summary ---
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
--- OUTSIDE RECORDS SUMMARY | 2024-10-17 12:02 | XMS_ITS | Encounter Summary ---
Author Organization [employer] Address [address] [place] [address] Care Team Providers Care Technical Solutions Consultant Name Role Phone Mackenzie Estrada MD Primary Care Provider [phone] Encounter Details Date Type Department Care Team (Late st Contact Info) Description 04/10/2024 Orders Only [facility] [address] [place], [place] [phone] Mackenzie Estrada MD [address] [place] [address] Social History Tobacco Use Types Packs/Day Years [...] Description 11/06/2024 9:45 AM EDT Office Visit [address] [address] 12/28/2024 9:45 AM EDT Office Visit [address] [address] Mackenzie Estrada MD [address] [place] [phone] documented as of this encounter Goals Goal Patient Goal Type Associated Problems Recent Progress Patient-Stated? Author Quit using tobacco (cigarettes, smokeless, etc) Tobacco Use No Corey Lin, PharmD documented as of this encounter Visit Diagnoses Not on filedocumented in this encounter Care Teams Technical Solutions Consultant Relationship Specialty Start Date End Date Mackenzie Estrada MD [address] [place] [phone] PCP - General Family Medicine 07/10/20 documented as of this encounter
--- OUTSIDE RECORDS SUMMARY | 2024-10-17 12:02 | XMS_ITS | Encounter Summary ---
Author Organization [employer] Address 75 [facility] 7t [place] [address] Care Team Providers Care Radiology Nurse Name Role Phone Mackenzie Estrada MD Primary Care Provider [phone] Reason for Visit * Reason Comments Med Refill Encounter Details Date Type Department Care Team ([facility] Contact Info) Description 08/19/2024 Refill [facility] [address] [place], [place] [phone] Mackenzie Estrada MD 230 [place], [place] [phone] Social History Tobacco Use Types Packs/Day Years [...] Description 11/06/2024 9:45 AM EDT Office Visit [facility] [address] [place] [address] 12/28/2024 9:45 AM EDT Office Visit [address] [address] Mackenzie Estrada MD [address] [place] [address] documented as of this encounter Goals Goal [...] documented as of this encounter Care Teams Radiology Nurse Relationship Specialty Start Date End Date Mackenzie Estrada MD [address] [place] [address] PCP - General Family Medicine 07/10/20 documented as of this encounter
--- OUTSIDE RECORDS SUMMARY | 2024-10-17 12:02 | XMS_ITS | Encounter Summary ---
Author Organization [employer] Address 75 [facility] 7t [place] [address] Care Team Providers Care Precast Concrete Products Installer Name Role Phone Mackenzie Estrada MD Primary Care Provider [phone] Reason for Visit * Reason Onset Date Comments Triage 11/10/2022 Encounter Details Date Type Department Care Team ([facility] Contact Info) Description 11/10/2022 Telephone [facility] 230 [place], [place] [phone] Mackenzie Estrada MD 230 [place], [place] [phone] Triage Social History Tobacco Use Types Packs/Day [...] - 11/11/2022 11:10 AM EDT TC to [phone] via [employer] interpreters in regards to below message. Pt reports she went to [facility] since [facility] did not return her call. RN informed pt triage nurses attempted to call pt x2 however pt did not answer. RN reviewed [facility] ED note and pt presented to ED [...] she has not been able to pick and shovel man the nystatin medication because [facility] did not have it. RN asked if [facility] informed the pt they were going to order it however pt was not sure. RN placed pt on hold and called [facility] pharmacy who reports it is supposed to be arriving in store today and pt should call around 3pm to inquire if it was received and ready for pick and shovel man. Pt verbalized understanding. RN advised pt if her rash does not resolve with medication and her pain does not resolve to call [facility] to schedule an appt for further evaluation. Pt verbalized understanding. Pt to F/U PRN. RN has printed ED note and placed in scan bin * Telephone Encounter - Chika Ingram LPN - 11/10/2022 2:30 PM EDT Triage call returned to patient with [employer] sports athletic trainer [phone] to listed number x 2 no answer. Left message to return call to [phone]. Team Nurses tasked to follow with patient [...] Description 11/06/2024 9:45 AM EDT Office Visit [address] [address] 12/28/2024 9:45 AM EDT Office Visit [address] [address] Mackenzie Estrada MD [address] [place] [address] documented as of this encounter Visit Diagnoses Not on filedocumented in this encounter Care Teams Precast Concrete Products Installer Relationship Specialty Start Date End Date Mackenzie Estrada MD [address] [place] [address] PCP - General Family Medicine 07/10/20 documented as of this encounter
--- OUTSIDE RECORDS SUMMARY | 2024-10-17 12:02 | XMS_ITS | Encounter Summary ---
Author Organization [employer] Address [address] [facility] [address] 7t [place] [address] Care Team Providers Care Stud Master/Mistress Name Role Phone Mackenzie Estrada MD Primary Care Provider [phone] Encounter Details Date Type Department Care Team (Late st Contact Info) Description 06/03/2023 Orders Only [facility] 230 [place], [place] [phone] Mackenzie Estrada MD 230 [place], [place] [phone] Pain in both hands Social History Tobacco [...] Description 11/06/2024 9:45 AM EDT Office Visit [facility] [address] [place] [address] 12/28/2024 9:45 AM EDT Office Visit [facility] [address] [place] [address] Mackenzie Estrada MD [address] [place] [address] documented as of this encounter Goals Goal [...] both hands INFLUENZA A B2 ID NOW ([employer]) Routine 06/03/2023 4:34 PM EDT Pain in both hands COVID-19 ID NOW (CORONA) Routine 06/03/2023 4:34 PM EDT Pain in both hands documented in this encounter Results * XR Chest 2 Views (06/25/2023 12:15 PM EST) Anatomical Region Laterality Modality Chest Radiographic Rin ging 06/25/2023 12:1 5 PM EST Narrative 06/03/2023 5:47 PM EDT ? [facility] ?[address] ?[place] [address] ?XRay Report ? Signed ? Patient: Ovidio Lacy,Ginette ?MR ?? #: [id number] ? : 1975 ?Acct:[id number] ? Age/Sex: 47 / F ?ADM Date: 06/25/23 ? Loc: HO.ED ? Attending Dr: ? Ordering Physician: Treasure Clemons ?? Date of Service: 06/25/23 ?? Procedure(s): XR chest 2V ?? Accession Number(s): [id number] ? cc: Mackenzie Estrada; Treasure Clemons ? [...] ? Signed By: ?<Electronically signed by Jamie Avelar MD in OV> ?06/25/23 1230 ? DD/ 1215 ? TD/TT: ? Clothes Presser: MSM ? Procedure Note Lorin, Image - 06/25/[address] [address] XRay Report Signed Patient: Ginette ArceoMR #: [id number] : 1975Acct:[id number] Age/Sex: 47 / FADM Date: 06/25/23 Loc: HO.ED Attending Dr: Ordering Physician: Treasure Clemons Date of Service: 06/25/23 Procedure(s): XR chest 2V Accession Number(s): [id number] cc: Mackenzie Estrada; Treasure Clemons EXAMINATION: XR [...] in OV> 06/25/23 1230 DD/ 1215 TD/TT: Clothes Presser: MAGGIE [facility] External Provider IMG XR PROCEDURES Edited Result - Final * (ABNORMAL) Urinalysis, Complete, with Reflex to Culture (06/03/2023 4:49 PM EDT) Color Urine Yellow [facility] Appearance Urine Clear [facility] PH 5.5 5.0 - 9.0 [facility] Glucose Urine UA Negative Negative mg/dL [facility] Urine Blood Large (3+)(A) Negative [facility] Specific [place] - Urine 1.025 1.005 - 1.025 [facility] Urine Protein Negative Neg-Trace mg/dL [facility] Urine Ketones Negative Negative mg/dL [facility] Nitrite Urine Negative Negative [facility] Leukocyte Esterase Urine Negative Negative [facility] RBC Urine >20(A) 0 - 2 /HPF [facility] Urine WBC 0-5 0 - 5 /HPF [facility] Urine Squamous Epithelial Cell 11-20 0 - 2 /HPF [facility] Urine Bacteria 1+ None Seen [facility] Hyaline Casts, Urine 0-2 0 - 2 /LPF [facility] 06/03/2023 4:49 PM EDT 06/03/2023 4:52 PM EDT Narrative [facility] - 06/03/2023 5:00 PM EDT Urine, Clean Catch us Generic External Data Provider LAB URINE ORDERAB LES Final Result Performing Organization Address [facility]/ZIP Co de Phone Number [facility] [address] [place] [phone] * (ABNORMAL) Urinalysis w/reflex microscopic (06/03/2023 4:49 PM EDT) Color Urine Yellow [facility] Appearance Urine Clear [facility] PH 5.5 5.0 - 9.0 [facility] Glucose Urine UA Negative Negative mg/dL [facility] Urine Blood Large (3+)(A) Negative [facility] Specific [place] - Urine 1.025 1.005 - 1.025 [facility] Urine Protein Negative Neg-Trace mg/dL [facility] Urine Ketones Negative Negative mg/dL [facility] Nitrite Urine Negative Negative [facility] Leukocyte Esterase Urine Negative Negative [facility] 06/03/2023 4:49 PM EDT 06/03/2023 4:52 PM EDT Narrative [facility] - 06/03/2023 4:57 PM EDT Urine, Clean Catch us Generic External Data Provider LAB URINE ORDERAB LES Final Result Performing Organization Address [facility]/ZIP Co de Phone Number [facility] [address] [place] [phone] * Influenza A B2 ID NOW ([facility]ona) (06/03/2023 4:34 PM EDT) IDNOW SERIAL# [id number] [facility] Influenza A Negative Negative [facility] Influenza B2 Negative Negative [facility] Influenza A B2 Note See Note [facility] Comment:The Corona ID NOW In [...] LAB MICROBIOLOGY - GENERAL ORDERABLES Final Result [facility] [address] [place] [phone] * COVID-19 ID NOW ([employer]) (06/03/2023 4:34 PM EDT) IDNOW SERIAL# [id number] [facility] COVID-19 TEST Negative Negative [facility] COVID-19 NOTE See Note [facility] Comment: Results are for the identification of SARS-CoV2 RNA. TheSARS-CoV2 RNA is generally detectable in respiratory samplesduring the acute phase of infection. Positive results areindicative of the presence of SARS-CoV-2 RNA; clinicalcorrelation with patient history and other diagnosticinformation is necessary to determine patient infectionstatus. Positive results do not rule out bacterial infectionor co- infection with other viruses.Testing facilities within the [facility] and [facility] are required to report all positive results [...] use by authorized laboratories.Testing performed on the [employer] ID NOW utilizing NAAT. 06/03/2023 4:34 PM EDT 06/03/2023 4:40 PM EDT us Generic External Data Provider LAB MOLECULAR ARNAV GNOSTICS ORDERABLES Final Result [facility] [address] [place] [phone] [phone] documented in this encounter Visit Diagnoses Diagnosis Pain in both hands documented in this encounter Care Teams Stud Master/Mistress Relationship Specialty Start Date End Date Mackenzie Estrada MD [address] [place] [address] PCP - General Family Medicine 07/10/20 documented as of this encounter
--- OUTSIDE RECORDS SUMMARY | 2024-10-17 12:02 | XMS_ITS | Encounter Summary ---
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 [...] the past 12 months, has t he [employer], gas, oil or water company threatened to [...] Description 11/06/2024 9:45 AM EDT Office Visit [facility] [address] [place] [address] 12/28/2024 9:45 AM EDT Office Visit [facility] [address] [place] [address] Mackenzie Estrada MD [address] [place] [address] documented as of this encounter Goals Goal [...] documented as of this encounter Care Teams Crisis Intervention Counselor Relationship Specialty Start Date End Date Mackenzie Estrada MD 230 [place] [address] PCP - General Family Medicine 07/10/20 documented as of this encounter
--- OUTSIDE RECORDS SUMMARY | 2024-10-17 12:02 | XMS_ITS | Encounter Summary ---
Author Organization [employer] Address 75 [facility] 7t [place] [address] Care Team Providers Care Rental Car Ferry Driver Name Role Phone Mackenzie Estrada MD Primary Care Provider [phone] Reason for Visit * Reason Comments Med Refill Encounter Details Date Type Department Care Team ([facility] st Contact Info) Description 02/08/2023 Refill [facility] 230 [place] [address] Mackenzie Estrada MD 230 [place] [address] Pain in both hands Social History Tobacco [...] Description 11/06/2024 9:45 AM EDT Office Visit [address] [address] 12/28/2024 9:45 AM EDT Office Visit [address] [phone] Mackenzie Estrada MD [address] [place] [address] documented as of this encounter Visit Diagnoses Diagnosis Pain in both hands documented in this encounter Care Teams Rental Car Ferry Driver Relationship Specialty Start Date End Date Mackenzie Estrada MD [address] [place] [address] PCP - General Family Medicine 07/10/20 documented as of this encounter
--- OUTSIDE RECORDS SUMMARY | 2024-10-17 12:02 | XMS_ITS | Encounter Summary ---
Author Organization [employer] Address 75 [facility] 7t [place] [address] Care Team Providers Care Child Psychology Teacher Name Role Phone Mackenzie Estrada MD Primary Care Provider [phone] Reason for Visit * Reason Comments Med Refill Encounter Details Date Type Department Care Team ([facility] st Contact Info) Description 06/03/2023 Refill [facility] 230 [place], [place] [phone] Mackenzie Estrada MD 230 [place], [place] [phone] Pain in both hands Social History Tobacco [...] Description 11/06/2024 9:45 AM EDT Office Visit [address] [address] 12/28/2024 9:45 AM EDT Office Visit [address] [address] Mackenzie Estrada MD [address] [place] [address] documented as of this encounter Goals Goal Patient Goal Type Associated Problems Recent Progress Patient-Stated? Author Quit using tobacco (cigarettes, smokeless, etc) Tobacco Use No Corey Lin, PharmD documented as of this encounter Visit Diagnoses Diagnosis Pain in both hands documented in this encounter Care Teams Child Psychology Teacher Relationship Specialty Start Date End Date Mackenzie Estrada MD [address] [place] [address] PCP - General Family Medicine 07/10/20 documented as of this encounter
--- OUTSIDE RECORDS SUMMARY | 2024-10-17 12:02 | XMS_ITS | Encounter Summary ---
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 [...] the past 12 months, has t he [employer], gas, oil or water company threatened to [...] Description 11/06/2024 9:45 AM EDT Office Visit [facility] [address] [place] [address] 12/28/2024 9:45 AM EDT Office Visit [facility] [address] [place] [address] Mackenzie Estrada MD [address] [place] [address] documented as of this encounter Goals Goal [...] documented as of this encounter Care Teams Preliminary School Psychologist Relationship Specialty Start Date End Date Mackenzie Estrada MD [address] [place] [address] PCP - General Family Medicine 07/10/20 documented as of this encounter
--- OUTSIDE RECORDS SUMMARY | 2024-10-17 12:02 | XMS_ITS | Encounter Summary ---
Author Organization [employer] Address [address] [facility] [address] 7t [place] [address] Care Team Providers Care Jacquard Loom Card Changer Name Role Phone Mackenzie Estrada MD Primary Care Provider [phone] Reason for Visit * Reason Comments Med Refill Encounter Details Date Type Department Care Team ([facility] Contact Info) Description 10/10/2024 Refill [facility] [address] [place], [place] [phone] Kat Yo MD 230 [place], [place] [phone] Rheumatoid arthritis involving right hand with positive [...] the past 12 months, has t he [employer], gas, oil or water [employer] threatened to shut off services in your [...] Description 11/06/2024 9:45 AM EDT Office Visit [facility] [address] [place] [address] 12/28/2024 9:45 AM EDT Office Visit [address] [address] Mackenzie Estrada MD [address] [place] [address] documented as of this encounter Goals Goal Patient Goal Type Associated Problems Recent Progress Patient-Stated? 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
--- OUTSIDE RECORDS SUMMARY | 2024-10-17 12:02 | XMS_ITS | Encounter Summary ---
Author Organization [employer] Address 75 [facility] 7t [place] [address] Care Team Providers Care Intern Name Role Phone Mackenzie Estrada MD Primary Care Provider [phone] Reason for Visit * Reason Comments Med Refill Encounter Details Date Type Department Care Team ([facility] st Contact Info) Description 01/12/2024 Refill [facility] 230 [place], [place] [phone] Mackenzie Estrada MD 230 [place], [place] [phone] Rheumatoid arthritis involving multiple sites with positive rheumatoid factor ([facility]) Social History Tobacco Use Types [...] Description 11/06/2024 9:45 AM EDT Office Visit [facility] [address] [place] [address] 12/28/2024 9:45 AM EDT Office Visit [address] [address] Mackenzie Estrada MD [address] [place] [address] documented as of this encounter Goals Goal Patient Goal Type Associated Problems Recent Progress Patient-Stated? Author Quit using tobacco (cigarettes, smokeless, etc) Tobacco Use Corey Cornell, KelechiD documented as of this encounter Visit Diagnoses Diagnosis Rheumatoid arthritis involving multiple sites with positive rheumatoid factor ([facility]) documented in this encounter Care Teams Intern Relationship Specialty Start Date End Date Mackenzie Estrada MD [address] [place] [address] PCP - General Family Medicine 07/10/20 documented as of this encounter
--- OUTSIDE RECORDS SUMMARY | 2024-10-17 12:02 | XMS_ITS | Encounter Summary ---
Author Organization [facility] Address 75 [facility] 7t [place] [address] Care Team Providers Care Hot Mill Roller Name Role Phone Mackenzie Estrada MD Primary Care Provider [phone] Encounter Details Date Type Department Care Team ([facility] Contact Info) Description 03/04/2023 Orders Only [facility] [address] [place] [address] Kat Yo MD [address] [place] [address] [phone] Social History Tobacco Use Types Packs/Day Years [...] Department Care Team (Late Contact Info) Description 11/06/2024 9:45 AM EDT Office Visit [facility] [address] [place] [phone] 12/28/2024 9:45 AM EDT Office Visit [facility] [address] [place] [address] Mackenzie Estrada MD [address] [place] [address] [phone] documented as of this encounter Visit Diagnoses Not on filedocumented in this encounter Care Teams Hot Mill Roller Relationship Specialty Start Date End Date Mackenzie Estrada MD 230 [place] [address] PCP - General Family Medicine 07/10/20 documented as of this encounter
--- OUTSIDE RECORDS SUMMARY | 2024-10-17 12:02 | XMS_ITS | Encounter Summary ---
Author Organization [employer] Address 75 [facility] 7t [place] [address] Care Team Providers Care Typesetter Apprentice Name Role Phone Mackenzie Estrada MD Primary Care Provider [phone] Reason for Visit * Reason Comments Med Refill Encounter Details Date Type Department Care Team ([facility] st Contact Info) Description 06/02/2023 Refill [facility] 230 [place], [place] [phone] Mackenzie Estrada MD 230 [place], [place] [phone] Pain in both hands Social History Tobacco [...] Description 11/06/2024 9:45 AM EDT Office Visit [address] [address] 12/28/2024 9:45 AM EDT Office Visit [address] [address] Mackenzie Estrada MD [address] [place] [address] documented as of this encounter Goals Goal Patient Goal Type Associated Problems Recent Progress Patient-Stated? Author Quit using tobacco (cigarettes, smokeless, etc) Tobacco Use No Corey Lin, PharmD documented as of this encounter Visit Diagnoses Diagnosis Pain in both hands documented in this encounter Care Teams Typesetter Apprentice Relationship Specialty Start Date End Date Mackenzie Estrada MD [address] [place] [address] PCP - General Family Medicine 07/10/20 documented as of this encounter
--- OUTSIDE RECORDS SUMMARY | 2024-10-17 12:02 | XMS_ITS | Encounter Summary ---
Author Organization [employer] Address 75 [facility] 7t [place] [address] Care Team Providers Care Toppiece Chopper Name Role Phone Mackenzie Estrada MD Primary Care Provider [phone] Reason for Visit * Reason Comments Med Refill Encounter Details Date Type Department Care Team ([facility] st Contact Info) Description 11/18/2023 Refill [facility] 230 [place], [place] [phone] Mackenzie Estrada MD 230 [place], [place] [phone] Pain in both hands Social History Tobacco [...] Description 11/06/2024 9:45 AM EDT Office Visit [address] [address] 12/28/2024 9:45 AM EDT Office Visit [address] [address] Mackenzie Estrada MD [address] [place] [address] documented as of this encounter Goals Goal Patient Goal Type Associated Problems Recent Progress Patient-Stated? Author Quit using tobacco (cigarettes, smokeless, etc) Tobacco Use No Corey Lin, PharmD documented as of this encounter Visit Diagnoses Diagnosis Pain in both hands documented in this encounter Care Teams Toppiece Chopper Relationship Specialty Start Date End Date Mackenzie Estrada MD [address] [place] [address] PCP - General Family Medicine 07/10/20 documented as of this encounter
--- OUTSIDE RECORDS SUMMARY | 2024-10-17 12:02 | XMS_ITS | Encounter Summary ---
Author Organization [employer] Address [address] 7t [place] [address] Care Team Providers Care Busher Helper Name Role Phone Mackenzie Estrada MD Primary Care Provider [phone] Encounter Details Date Type Department Care Team (Late st Contact Info) Description 04/20/2024 Telephone [facility] MEDICINE [address] [place], [place] [phone] Mackenzie Estrada MD 230 [place], [place] [phone] Social History Tobacco Use Types Packs/Day Years [...] Description 11/06/2024 9:45 AM EDT Office Visit [address] [address] 12/28/2024 9:45 AM EDT Office Visit [address] [address] Mackenzie Estrada MD [address] [place] [address] documented as of this encounter Goals Goal Patient Goal Type Associated Problems Recent Progress Patient-Stated? Author Quit using tobacco (cigarettes, smokeless, etc) Tobacco Use No Corey Lin, PharmD documented as of this encounter Visit Diagnoses Not on filedocumented in this encounter Care Teams Busher Helper Relationship Specialty Start Date End Date Mackenzie Estrada MD [address] [place] [address] PCP - General Family Medicine 07/10/20 documented as of this encounter
--- OUTSIDE RECORDS SUMMARY | 2024-10-17 12:02 | XMS_ITS | Encounter Summary ---
Author Organization [employer] Address [address] 7t [place] [address] Care Team Providers Care Cnc Router Operator Name Role Phone Mackenzie Estrada MD Primary Care Provider Encounter Details Date Type Department Care Team (Late st Contact Info) Description 12/13/2023 Orders Only [facility] MEDICINE 230 [place], [place] [phone] Mackenzie Estrada MD 230 [place], [place] [phone] Pain in both hands Social History Tobacco [...] Description 11/06/2024 9:45 AM EDT Office Visit [address] [address] 12/28/2024 9:45 AM EDT Office Visit [address] [address] Mackenzie Estrada MD [address] [place] [address] documented as of this encounter Goals Goal Patient Goal Type Associated Problems Recent Progress Patient-Stated? Author Quit using tobacco (cigarettes, smokeless, etc) Tobacco Use No Corey Lin, Bailey documented as of this encounter Visit Diagnoses Diagnosis Pain in both hands documented in this encounter Care Teams Cnc Router Operator Relationship Specialty Start Date End Date Mackenzie Estrada MD [address] [place] [address] PCP - General Family Medicine 07/10/20 documented as of this encounter
--- OUTSIDE RECORDS SUMMARY | 2024-10-17 12:02 | XMS_ITS | Encounter Summary ---
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 [...] the past 12 months, has t he [employer], oil or water company threatened to [...] Description 11/06/2024 9:45 AM EDT Office Visit [facility] MEDICINE [address] [place] [address] 12/28/2024 9:45 AM EDT Office Visit [facility] MEDICINE [address] [place] [address] Mackenzie Estrada MD [address] [place] [address] documented as of this encounter Goals Goal [...] documented as of this encounter Care Teams Photographer Helper Relationship Specialty Start Date End Date Mackenzie Estrada MD 230 [place] [address] PCP - General Family Medicine 07/10/20 documented as of this encounter
--- OUTSIDE RECORDS SUMMARY | 2024-10-17 12:02 | XMS_ITS | Encounter Summary ---
Author Organization [employer] [facility] Address [address] [facility] 7t [place] [address] Care Team Providers Care Electrical Tester Name Role Phone Mackenzie Estrada MD Primary Care Provider [phone] Reason for Referral * Imaging (Routine) - Closed Specialty Diagnoses / Procedures Referred By Contac t Referred To Contact Radiology Diagnoses Abnormal ultrasound of pelvis Procedures MR Pelvis w/ and w/o Contrast Mackenzie Estrada MD 230 [place] [address] Phone: tel: fax: [address] Phone: tel: fax: Referral ID Status Reason Start Date Expiration Date Visits Re quested Visits Authorized [id number] Closed 10/31/2023 10/30/2024 1 1 Encounter Details Date Type Department Care Team (Late st Contact Info) Description 10/31/2023 Orders Only [facility] MEDICINE 230 [place], [place] [phone] Mackenzie Estrada MD 230 [place], [place] [phone] Abnormal ultrasound of pelvis (Primary Dx) Social [...] 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 Thank you! documented in this encounter Plan of Treatment Upcoming Encounters Date Type Department Care Team (Late st Contact Info) Description 11/06/2024 9:45 AM EDT Office Visit [facility] MED[facility]INE [address] [place] [address] 12/28/2024 9:45 AM EDT Office Visit [facility] [address] [place] [address] Mackenzie Estrada MD [address] [place] [address] documented as of this encounter Goals Goal [...] EDT Narrative 12/07/2023 9:11 AM EDT ? [facility] ?[address] ?[place] [address] ? Magnetic Resonance Report ? Signed ? Patient: Ginette Arceo ?MR ?? #: [id number] ? : 1975 ?Acct:[id number] ? Age/Sex: 48 / F ?ADM Date: 11/25/23 ? Loc: HO.MRI ? Attending Dr: Mackenzie Estrada MD ? Ordering Physician: Mackenzie Estrada ?? Date of Service: 11/25/23 ?? Procedure(s): MR pelvis wo/w con ?? Accession Number(s): [id number] ? cc: Mackenzie Estrada ? EXAMINATION: ?? [...] 7.8 x 3.6 ?? x 4.3 cm (hqrwui-fj-fsomvy x AP x transverse dimension). The junctional [...] 12/07/23906 ? DD/ 1505 ? TD/TT: ? Placement Coordinator: PD ? Procedure Note Donotuseinterpreter, Image - 12/07/[address] [address] Magnetic Resonance Report Signed Patient: Ginette ArceoMR #: [id number] : 1975Acct:[id number] Age/Sex: 48 / FADM Date: 11/25/23 Loc: HO.MRI Attending Dr: Mackenzie Estrada MD Ordering Physician: Mackenzie Estrada Date of Service: 11/25/23 Procedure(s): MR pelvis wo/w con Accession Number(s): [id number] cc: Mackenzie Estrada EXAMINATION: MR PELVIS WITHOUT [...] measures 7.8 x 3.6 x 4.3 cm (obttao-ew-ddkaxo x AP x transverse dimension). The junctional [...] in OV> 12/07/23 0907 DD/ 1505 TD/TT: Placement Coordinator: PD Mackenzie Estrada MD IMG MRI PROCEDURES Final Resul t documented in this encounter Visit Diagnoses Diagnosis Abnormal ultrasound of pelvis- Primary documented in this encounter Care Teams Electrical Tester Relationship Specialty Start Date End Date Mackenzie Estrada MD [address] [place] [address] PCP - General Family Medicine 07/10/20 documented as of this encounter
--- OUTSIDE RECORDS SUMMARY | 2024-10-17 12:02 | XMS_ITS | Encounter Summary ---
Author Organization [employer] Address [address] [facility] 7t [place] [address] Care Team Providers Care Chain Saw Mechanic Name Role Phone Mackenzie Estrada MD Primary Care Provider [phone] Reason for Visit * Reason Onset Date Comments Hospital Follow-up 02/24/2024 Encounter Details Date Type Department Care Team ([facility] st Contact Info) Description 02/24/2024 Telephone [facility] MEDICINE 230 [place], [place] [phone] aMckenzie Estrada MD 230 [place] [address] Hospital Follow-up Social History Tobacco Use Types [...] from pt requesting a HDF appt. Hospital: Date of admission: 02/19 Discharge date: 02/23 Diagnosed: Rectal Bleeding Taiwanese Speaker documented in this encounter Plan of Treatment Upcoming Encounters Date Type Department Care Team (Late st Contact Info) Description 11/06/2024 9:45 AM EDT Office Visit [facility] MEDICINE [address] [place] [address] 12/28/2024 9:45 AM EDT Office Visit [facility] MED[facility]INE [address] [place] [address] Mackenzie Estrada MD [address] [place] [address] documented as of this encounter Goals Goal Patient Goal Type Associated Problems Recent Progress Patient-Stated? Author Quit using tobacco (cigarettes, smokeless, etc) Tobacco Use No Corey Lin, Bailey documented as of this encounter Visit Diagnoses Not on filedocumented in this encounter Care Teams Chain Saw Mechanic Relationship Specialty Start Date End Date Mackenzie Estrada MD [address] [place] [address], [place] [address] PCP - General Family Medicine 07/10/20 documented as of this encounter
--- OUTSIDE RECORDS SUMMARY | 2024-10-17 12:02 | XMS_ITS | Encounter Summary ---
Author Organization [employer] Address [address] [facility] [address] 7t [place] [address] Care Team Providers Care Head Athletic Trainer Name Role Phone Mackenzie Estrada MD Primary Care Provider [phone] Encounter Details Date Type Department Care Team (Late st Contact Info) Description 10/09/2024 11:20 AM EDT Office Visit [facility] 230 [place], [place] [phone] Kat Yo MD 230 [place], [place] [phone] Rheumatoid arthritis flare (CMS/HCC) (Primary Dx); Rheumatoid arthritis involving right hand [...] Sign Reading Time Taken Comments Blood Pressure 110/66 10/09/2024 11:24 AM EDT Pulse 89 10/09/2024 11:24 AM EDT Temperature 36.8 ??C (98.2 ??F) 10/09/2024 11:24 AM E DT Respiratory Rate 18 10/09/2024 11:24 AM EDT Oxygen Saturation 97% 10/09/2024 11:24 AM EDT Inhaled Oxygen Concentration - - Weight 80.7 kg (178 lb) 10/09/2024 11:24 AM EDT Height - - Body Mass Index 32.56 09/24/2024 2:44 PM EST documented in this encounter Progress Notes * Kat Yo MD - 10/09/2024 11:20 AM EDT Images from the original note were not included. Subjective Patient ID: Ginette Lacy is a 49 y.o. female PMHx of fibromyalgia, rheumatoid arthritis including osteonecrosis of hip, lupus, non-hodgkin's lymphoma in 2004, tobacco dependence, perepheral artery disease, DVT on Eliquis, and non STEMI in May 2024 who presents to walk in clinic forswelling of hands. PT reprot ryan had her transfustion yesterday and woke today with bilateral hand swelling. Last saw Rheumatology on 07/03/24 with similar symptoms. Pt is on O[place]cia. Self discontinued Methotrexate, unclear why. Gets Percocet from her PCP(Last prescribed 06/02/24). She was on prednisone, but was stopped due to left femur avascular necrosis. Pt was restarted on Methotrexate on 07/03/24. She is followed by Orthopedics, who recommends avoiding prednisone. Med hx: Regularly requiring bursts of prednisone 40-60mg for [...] mg weekly, folic acid 1 mg daily. Objective Visit Vitals BP 110/66 (BP Location: Left arm, Patient Position: Sitting, BP Cuff Size: Large adult) Pulse 89 Temp 98.2 ??F (36.8 ??C) (Temporal) Resp 18 Body mass index is 32.56 kg/m??. Physical Exam Musculoskeletal: Comments: Bilateral swelling on hands with warmth and tenderness. Problem List Items Addressed This Visit Rheumatoid arthritis flare (CMS/HCC) - Primary Pt with RA flair. Rheumatology is aware and seeing patient on Tuesday. She has restarted her methotrexate. Although not idea for Prednisone due to hx avascular necrosis, will treat for 5 days. Her Percocet is being prescribed by PCP and pt reports there will be a change in the future. I will check in with PCP. -discussed return and ER precautions. -encouraged f/u with PCP and specialists. 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 Rheumatology is aware and seeing patient on Tuesday. She has restarted her methotrexate. Although not idea for Prednisone due to hx avascular necrosis, will treat for 5 days. Her Percocet is being prescribed by PCP and pt reports there will be a change in the future. I will check in with PCP. -discussed return and ER precautions. -encouraged f/u with PCP and specialists. documented in this encounter Plan of Treatment Upcoming Encounters Date Type Department Care Team (Late st Contact Info) Description 11/06/2024 9:45 AM EDT Office Visit [facility] MEDICINE [address] [place] [address] 12/28/2024 9:45 AM EDT Office Visit [facility] MED[facility]INE [address] [place] [address] Mackenzie Estrada MD [address] [place] [address] documented as of this encounter Goals Goal Patient Goal Type Associated Problems Recent Progress Patient-Stated? 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
--- OUTSIDE RECORDS SUMMARY | 2024-10-17 12:02 | XMS_ITS | Encounter Summary ---
Author Organization [employer] Address [address] [facility] 7t [place] [address] Care Team Providers Care Banjo Repairer Name Role Phone Mackenzie Estrada MD Primary Care Provider [phone] Reason for Visit * Reason Comments Med Refill Encounter Details Date Type Department Care Team ([facility] st Contact Info) Description 06/01/2023 Refill [facility] MEDICINE 230 [place], [place] [phone] Mackenzie Estrada MD 230 [place], [place] [phone] Pain in both hands Social History Tobacco [...] Description 11/06/2024 9:45 AM EDT Office Visit [address] [address] 12/28/2024 9:45 AM EDT Office Visit [address] [address] Mackenzie Estrada MD [address] [place] [address] documented as of this encounter Goals Goal Patient Goal Type Associated Problems Recent Progress Patient-Stated? Author Quit using tobacco (cigarettes, smokeless, etc) Tobacco Use No Corey Lin, PharmD documented as of this encounter Visit Diagnoses Diagnosis Pain in both hands documented in this encounter Care Teams Banjo Repairer Relationship Specialty Start Date End Date Mackenzie Estrada MD [address] [place] [address] PCP - General Family Medicine 07/10/20 documented as of this encounter
--- OUTSIDE RECORDS SUMMARY | 2024-10-17 12:02 | XMS_ITS | Encounter Summary ---
Author Organization [employer] Address [address] [facility] [address] 7t [place] [address] Care Team Providers Care Solid Plasterer Name Role Phone Mackenzie Estrada MD Primary Care Provider [phone] Encounter Details Date Type Department Care Team (Late st Contact Info) Description 06/01/2023 Orders Only [facility] MEDICINE 230 [place], [place] [phone] Mackenzie Estrada MD 230 [place] [address] Encounter for smoking cessation counseling (Primary Dx) [...] Description 11/06/2024 9:45 AM EDT Office Visit [address] [address] 12/28/2024 9:45 AM EDT Office Visit [address] [address] Mackenzie Estrada MD [address] [place] [address] documented as of this encounter Goals Goal Patient Goal Type Associated Problems Recent Progress Patient-Stated? Author Quit using tobacco (cigarettes, smokeless, etc) Tobacco Use No Corey Lin, PharmD documented as of this encounter Visit Diagnoses Diagnosis Encounter for smoking cessation counseling- Primary documented in this encounter Care Teams Solid Plasterer Relationship Specialty Start Date End Date Mackenzie Estrada MD [address] [place] [address] PCP - General Family Medicine 07/10/20 documented as of this encounter
--- OUTSIDE RECORDS SUMMARY | 2024-10-17 12:02 | XMS_ITS | Encounter Summary ---
Author Organization [facility] Address [address] [facility] 7t [place] [address] Care Team Providers Care Geological Specialist Name Role Phone Mackenzie Estrada MD Primary Care Provider [phone] Encounter Details Date Type Department Care Team ([facility] Contact Info) Description 03/29/2023 Abstract [facility] MEDICINE [address] [place] [address] Cecilia Henriquez Social History Tobacco Use Types [...] Team ([facility] Contact Info) Description 11/06/2024 9:45 AM EDT Office Visit [facility] MEDICINE [address] [place] [address] [phone] 12/28/2024 9:45 AM EDT Office Visit [facility] MEDICINE [address] [place] [address] [phone] Mackenzie Estrada MD [address] [place] [address] documented as of this encounter Procedures Procedure Name Priority Date/Time Associated Diagnosis Comments HM COLONOSCOPY Routine 10/28/2017 documented in this encounter Results * Colonoscopy (10/28/2017) Colonoscopy Normal Normal Narrative Cecilia Henriquez - 10/28/2017 Recommended 10 [place] Historical Provider HEALTH MAINTENANCE Edited Result - Final documented in this encounter Visit Diagnoses Not on filedocumented in this encounter Care Teams Geological Specialist Relationship Specialty Start Date End Date Mackenzie Estrada MD 230 [place] [address] PCP - General Family Medicine 07/10/20 documented as of this encounter
--- OUTSIDE RECORDS SUMMARY | 2024-10-17 12:02 | XMS_ITS | Encounter Summary ---
Author Organization [employer] Address [address] [facility] 7t [place] [address] Care Team Providers Care Acid Mixer Name Role Phone Mackenzie Estrada MD Primary Care Provider [phone] Encounter Details Date Type Department Care Team ([facility] st Contact Info) Description 10/12/2024 Population Health Risk Score [facility] ([facility]) Department [address] [facility] 7 [place] [phone] Provider, Population Health Generic Social History Tobacco Use Types Packs/Day Years [...] [facility] MEDICINE [address] [place] [address] 12/28/2024 9:45 AM EDT Office Visit [address] [address] Mackenzie Estrada MD [address] [place] [address] documented as of this encounter Goals Goal [...] documented as of this encounter Care Teams Acid Mixer Relationship Specialty Start Date End Date Mackenzie Estrada MD [address] [place] [address] PCP - General Family Medicine 07/10/20 documented as of this encounter
--- OUTSIDE RECORDS SUMMARY | 2024-10-17 12:02 | XMS_ITS | Clinical Summary ---
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 12/11/19 23 Active beta carotene (vitamin A) 3 MG (65414 UT) capsule Take by mouth in the [...] MOUTH EVERY WEEK 02/24/20 24 Active Umeclidinium [place]iera (Incruse Ellipta) 62.5 MCG/ACT aerosol powderIndicatio ns:Subacute [...] PAIN 90 tablet 3 09/18/19 25 Active famotidine (Pepcid) 20 MG tabletIndicatio ns:Gastroesopha [...] pain 50 g 2 09/28/19 25 Active clopidogrel (Plavix) 75 MG tabletIndicatio ns:NSTEMI (non-ST elevated myocardial infarction) ([facility]/HCC) Take 1 tablet (75 mg) by mouth Once per day. 90 tablet 3 09/28/19 25 026 Active oxyCODONE-aceta minophen (Percocet) 7.5-325 MG tabletIndicatio ns:Osteonecrosi s of hip with collapse of femoral head present on x-ray ([facility]) Take 1 tablet by mouth every 6 (six) hours if needed for severe pain for up to 28 days. Do not start before October 17, 2024. 112 tablet 10/18/19 25 025 Active Compound W 17 % external solution [...] EVERY MORNING 48 g 06/22/20 23 025 Discontinued(Th erapy completed) cetirizine (ZyrTEC) 10 MG tablet TAKE 1 TABLET BY MOUTH EVERY MORNING FOR EAR PAIN 90 tablet 3 09/12/19 24 025 Discontinued famotidine (Pepcid) 20 MG tabletIndicatio ns:Gastroesopha geal reflux disease with hiatal hernia TAKE 1 TABLET BY MOUTH TWICE DAILY AT NOON AND IN THE EVENING 180 tablet 3 10/03/19 24 025 Discontinued predniSONE (Deltasone) 50 MG tabletIndicatio ns: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 (CMS/HCC),Infla mmatory arthritis Take 1 tablet (50 mg) by mouth Once per day for 5 days. 5 tablet 01/26/20 24 025 Discontinued(Re order (will not trigger notification to Pharmacy)) lidocaine-prilo елена (Emla) 2.5-2.5 % creamIndication s:Bilateral elbow joint pain,Infection of elbow (CMS/HCC) Apply topically Every 8-12 hours as needed for mild pain or moderate pain. Do not apply to open wounds 30 g 06/11/20 24 025 Discontinued( erapy completed) clopidogrel (Plavix) 75 MG tablet Take 1 tablet (75 mg) by mouth Once per day. 90 tablet 3 07/03/20 24 025 Discontinued(Re order (will not trigger [...] daily. 3.5 g 2 07/20/20 24 025 Discontinued( erapy completed) Diclofenac Sodium 1 % gel [...] 28 days. 84 tablet 09/19/19 25 025 Discontinued mupirocin (Bactroban) 2 % ointmentIndicat ions:Rheumatoid arthritis involving multiple sites with positive rheumatoid factor (CMS/[facility]) Apply topically 3 times daily for 10 days. 22 g 09/28/19 25 025 predniSONE (Deltasone) 50 MG tabletIndicatio ns:Rheumatoid arthritis flare (CMS/HCC),Rheum atoid arthritis involving right hand with positive rheumatoid factor (CMS/HCC),Infla mmatory arthritis Take 1 tablet (50 mg) by mouth Once per day for 5 days. 5 tablet 10/10/19 25 025 Active Problems Problem Noted Date Diagnosed Date Long-term current use of opiate analgesic 2024 Overview (09/28/2024): Medication: Percocet 7.5/325mg, increasing to every 6 hours prn at 09/2024 refill Indication: Rheumatoid arthritis Last [facility]PER Agreement: 06/12/24 Tier: II (Q3 months visits), Dr. Estrada 08/15/24 Assessment & Plan (09/28/2024 8:21 AM EST): Has Narcan at home TOWER [facility]PER agreement UTD Seeing group pain visits for [facility]PER Assessment & Plan (09/11/2024 5:03 PM EST): [...] factor 01/26/2024 Overview (08/14/2024): - Following with [facility] Rheum: Dr. Castro Assessment & Plan (01/26/2024 [...] to go back to her previous dose, TOWER [facility]PER nurse informed about my plan, I instructed [...] Rheumatoid arthritis flare 01/18/2023 Assessment & Plan (10/09/2024 1:19 PM EDT): Pt with RA flair. Rheumatology is aware [...] precautions. -encouraged f/u with PCP and specialists. Assessment & Plan (07/12/2024 12:17 PM EST): [...] week as per Rheumatology. Rx sent to [facility] and they will continue refill [...] thrombosis) 05/23/2020 Overview (09/28/2023): 01/2005 Right Subclavain prison current use of anticoagulant 0 Personal history of Hodgkin lymphoma 05/09/2020 Axillary lymphadenopathy 05/09/2020 Acute deep vein thrombosis ( DVT) of brachial vein of right upper extremity 03/07/2020 Lymphadenopathy, generalized 03/07/2020 Migraine without status migrainosus, not intract able 12/06/2017 Paresthesia and pain of left extremity 8 Gastroesophageal reflux disease 06/03/2017 Rheumatoid arthritis involving multiple sites Overview (09/11/2024): - Following with [facility] Rheumatoloy Assessment & Plan (09/28/2024 8:20 AM [...] PM EDT): Primarily managed by Rheum at [facility] Continue to take Oulimiant 2mg, Methotrexate 20mg [...] not as effective -I spoke today with [facility] staff today ( Shahla) and confirmed they do have remdesivir which will be the best options for tx for this pt , ER at [facility] are expecting pt for evaluation. Also pt [...] ambulance were called and handed this note Cellulitis of axilla 07/03/2022 025 Straining during bowel movements 07/03/2022 09/28/2024 Arthritis, senescent 06/03/2017 025 Psychoactive substance use disorder 05/04/2012 09/28/2024 Encounters Date Type Department Care Team Description 10/15/2024 Refill [facility] [address] [place] [address] Mackenzie Estrada MD 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 ([facility]) 10/12/2024 Population Health Risk Score [facility] () Department [address] [phone] Provider, Population Health Generic 10/11/2024 1:00 PM EDT Office Visit [facility] [address] [place] [address] Kailash, Libra, OD Presbyopia of both eyes (Primary Dx); Subjective visual disturbance; Dry eyes; Early cataracts, bilateral; Chorioretinal scar, left 10/11/2024 Travel 10/10/2024 Refill [facility] [address] [place] [address] Kat Yo MD 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 ([facility]); Inflammatory arthritis 10/10/2024 Refill [facility] [address] [place] [address] Mackenzie Estrada MD 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 ([facility]) 10/09/2024 11:20 AM EDT Office Visit [facility] [address] [place] [address] Kat Yo MD Rheumatoid arthritis flare ([facility]) (Primary Dx); 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 ([facility]/HCC); Inflammatory arthritis 10/02/2024 Telephone [facility] [address] [place] [address] Mackenzie Estrada MD 10/01/2024 Telephone [facility] [address] [place] [address] Libra Linder, LAW 09/24/2024 3:15 PM EST Office Visit [facility] [address] [place] [address] Mackenzie Estrada MD Rheumatoid arthritis involving multiple sites with positive rheumatoid factor ([facility]) (Primary Dx); Dietary counseling; Exercise counseling; Class 1 obesity with serious comorbidity and body mass index (BMI) of 33.0 to 33.9 in adult, unspecified obesity type; Nodular sclerosis Hodgkin lymphoma of lymph nodes of multiple regions ([facility]); NSTEMI (non-ST elevated myocardial infarction) ([facility]); 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 ([facility]); Class 1 obesity; Chronic low back pain, unspecified back pain laterality, unspecified whether sciatica present; Long-term current use of opiate analgesic; Screening mammogram for breast cancer 09/24/2024 Travel 09/24/2024 Refill [facility] [address] [place] [address] Mackenzie Estrada MD Gastroesophageal reflux disease with hiatal hernia 09/19/2024 Refill [facility] [address] [place] [address] Kaylene Samano RN 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 ([facility]) 09/18/2024 Refill [facility] [address] [place], [place] [phone] Mackenzie Estrada MD 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 ([facility]) 09/17/2024 Refill [facility] [address] [place] [address] Mackenzie Estrada MD 09/14/2024 Orders Only [facility] External Provider, [facility] 09/11/2024 9:45 AM EST Office Visit [address] [address] Sisi Kennedy FNP Rheumatoid arthritis involving multiple sites with positive rheumatoid factor (CMS/HCC) (Primary Dx); Long-term current use of opiate analgesic 09/11/2024 Travel 09/10/2024 Patient Outreach [address] [address] Mackenzie Estrada MD Care Coordination (CHW outreach for SDOH PT-1 and food needs-referral completed /) 09/10/2024 Patient Outreach [address] [address] Mackenzie Estrada MD Pre-visit Planning (SDOH screening negative and tobacco screening negative) 09/07/2024 Refill [facility] [address] [place] [address] [phone] Mackenzie Estrada MD 08/22/[address] [address] Mackenzie Estrada MD 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 ([facility]/HCC) 08/19/[address] [address] Mackenzie Estrada MD 08/16/[address] [address] Hanny Lacy [place] Appointment Request 08/15/2024 Telephone [facility] [address] [place], [place] [phone] Mackenzie Estrada MD Durable Medical Equipment (10 In 1 pillow ) 08/14/2024 9:45 AM EST Office Visit [address] [address] Sisi Kennedy FNP Long-term current use of opiate analgesic (Primary Dx); 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 (CMS/HCC); Inflammatory arthritis 08/14/2024 Travel 07/27/2024 Orders Only GENERIC EXTERNAL DATA DEPARTMENT Provider, Generic External Data 07/26/[address] [address] Mackenzie Estrada MD 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 ([facility]) 07/20/2024 10:15 AM EST Office Visit [facility] [address] [place] [address] NameMark MD Ear pain, bilateral (Primary Dx) 07/20/2024 Refill [facility] [address] [place] [address] Mackenzie Estrada MD 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 ([facility]) 07/20/2024 Travel 07/20/2024 Refill [facility] [address] [place] [address] Mackenzie Estrada MD 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 ([facility]) 07/20/2024 Telephone [facility] [address] [place] [address] Mackenzie Estrada MD Nurse Triage from Last 3 Months Immunizations Name Administration [...] (178 lb) 10/09/2024 11:24 AM EDT Height 157.5 cm (5' 2 ) 09/24/2024 2:44 PM EST Body Mass Index 32.56 09/24/2024 2:44 PM EST Plan of Treatment Upcoming Encounters Date Type Department Care Team (Late st Contact Info) Description 11/06/2024 9:45 AM EDT Office Visit [facility] [address] [place] [address] [phone] 12/28/2024 9:45 AM EDT Office Visit [facility] [address] [place] [phone] Mackenzie Estrada MD [address] [place], [place] [phone] Health Maintenance Due Date Last Done Comments CT Colonography 1976 Dental Prophylaxis 1976 FIT DNA/Cologuard 1976 FIT 1976 FOBT 1976 Sigmoidoscopy 1976 Alcohol/Substance Use Screening 1988 Zoster Vaccines (1 of 2) 1995 Pneumococcal Vaccine: Pediatrics (0 to 5 Years) [...] 01/27/2021, 04/19/2016 Depression Screening 04/30/2025 04/30/2024, 04/30/20 SDOH Screening 09/10/2025 09/10/2024 Family Planning (PISQ) 09/28/2025 09/28/2024 Tobacco Screening 10/11/2025 10/11/2024 Lipid Panel 09/14/2026 09/14/2021 DTaP/Tdap/Td Vaccines (2 - Td or Tdap) 04/19/2027 04/19/2017 Colonoscopy 10/29/2027 10/28/2017 Colorectal Cancer Screening 10/29/2027 Cervical Cancer Screening 09/28/2028 HPV/Cotest 09/28/2028 09/29/2023, 11/22/2018 Pap Smear 09/28/2028 09/29/2023 RSV Patients and Patients Aged 60 years or older (1 - 1-dose 75+ series) 2051 Hepatitis A Vaccines Aged Out 08/28/2012 No long er eligible based on patient's age to complete this topic Hepatitis B Vaccines Completed 08/28/2012, 09/08/2006, 05/04/2006 [...] etc) Tobacco Use No Corey Lin, KelechiD Procedures Procedure Name Priority Date/Time Associated Diagnosis [...] AUTO DIFFERENTIAL Routine 07/27/2024 1:09 AM EST HEPATITIS C ANTIBODY Routine 04/11/2024 [...] Surgeons ? [address] ?[place] [address] ?XRay Report ? Signed ? Patient: Ovidio Lacy,Ginette ?MR ?? #: [id number] ? : 1975 ?Acct:[id number] ? Age/Sex: 49 / F ?ADM Date: 09/14/24 ? Loc: HO.HOSX ? Attending Dr: Madonna Melara MD ? Ordering Physician: Madonna Bonilla ?? Date of Service: 09/14/24 ?? Procedure(s): XR elbow LT min 3V ?? Accession Number(s): [id number] ? cc: Mackenzie Estrada; Madonna Bonilla ? [...] DD/ 0807 ? TD/TT: 09/15/24 0807 ? Fiberglasser: ? Procedure Note Lorin, Deepa - 09/15/2024 [facility] [address] [place] [address] XRay Report Signed Patient: Ginette ArceoMR #: [id number] : 1975Acct:[id number] Age/Sex: 49 / FADM Date: 09/14/24 Loc: TAMARA Attending Dr: Madonna Melara MD Ordering Physician: Madonna Bonilla Date of Service: 09/14/24 Procedure(s): XR elbow LT min 3V Accession Number(s): [id number] cc: Mackenzie Estrada; Madonna Bonilla CLINICAL HISTORY: [...] 09/15/24 0808 DD/ 0807 TD/TT: 09/15/24 0807 Fiberglasser: [facility] External Provider IMG XR PROCEDURES Edited Result - Final * XR Scapula Left (09/15/2024 8:04 AM EST) Anatomical Region Laterality Modality Body, Scapula Left Radiographic Rin ging 09/15/2024 8:04 AM EST Narrative 09/15/2024 8:06 AM EST ? [facility] ? [address] ?[place] [address] ?XRay Report ? Signed ? Patient: Ovidio Lacy,Ginette ?MR ?? #: [id number] ? : 1975 ?Acct:[id number] ? Age/Sex: 49 / F ?ADM Date: 02/14/25 ? Loc: HO.HOSX ? Attending Dr: Madonna Melara MD ? Ordering Physician: Madonna Bonilla ?? Date of Service: 09/14/24 ?? Procedure(s): XR scapula LT ?? Accession Number(s): [id number] ? cc: Mackenzie Estrada; Madonna Bonilla ? [...] MD in OV> ?09/15/24 0805 ? DD/ 3 ? TD/TT: 09/15/24803 ? Fiberglasser: ? Procedure Note Doncharwilmarbhumiter, Image - 09/15/2024 [facility] [address] [facility] [address] [place] [address] XRay Report Signed Patient: Ginette Arceo #: [id number] : 1975Acct:[id number] Age/Sex: 49 / FADM Date: 09/14/24 Loc: HO.HOSX Attending Dr: Madonna Melara MD Ordering Physician: Madonna Bonilla Date of Service: 09/14/24 Procedure(s): XR scapula LT Accession Number(s): [id number] cc: Mackenzie Estrada; Madonna Bonilla CLINICAL HISTORY: [...] in OV> 09/15/24804 DD/ 3 TD/TT: 09/15/24803 Fiberglasser: [facility] External Provider IMG XR PROCEDURES Edited Result - Final * XR Humerus Left (09/15/2024 8:00 AM EST) Anatomical Region Laterality Modality Upper Extremities, Humerus Left Radio graphic Imaging 09/15/2024 8:00 AM EST Narrative 09/15/2024 8:02 AM EST ? [facility] ? [address] ?[place], [place] [address] ?XRay Report ? Signed ? Patient: Ovidio Lacy,Ginette ?MR ?? #: [id number] ? : 1975 ?Acct:[id number] ? Age/Sex: 49 / F ?ADM Date: 09/14/24 ? Loc: HO.HOSX ? Attending Dr: Madonna Melara MD ? Ordering Physician: Madonna Bonilla ?? Date of Service: 09/14/24 ?? Procedure(s): XR humerus LT ?? Accession Number(s): [id number] ? cc: Mackenzie Estrada; Madonna Bonilla ? [...] DD/ 0800 ? TD/TT: 09/15/24 0800 ? Fiberglasser: ? Procedure Note Lorin, Image - 09/15/2024 [facility] [address] [place] [address] [address] [place] [address] XRay Report Signed Patient: Ginette ArceoMR #: [id number] : 1975Acct:[id number] Age/Sex: 49 / FADM Date: 09/14/24 Loc: TAMARA Attending Dr: Madonna Melara MD Ordering Physician: Madonna Bonilla Date of Service: 09/14/24 Procedure(s): XR humerus LT Accession Number(s): [id number] cc: Mackenzie Estrada; Madonna Bonilla CLINICAL HISTORY: [...] Woodson MD in OV> 09/15/24 08 DD/ 08 TD/TT: 09/15/24 08 Fiberglasser: [facility] External Provider IMG XR PROCEDURES Edited [...] - 09/11/2024 2:01 PM EST .UT[employer] cup Lot#[id number] Exp. 04/25/26 Internal Pass Control Sisi Kennedy BUCKLE STRINGER POINT OF CARE TEST ENTER/EDIT ORDERABLES Final Result * XR Clavicle Left (07/27/2024 7:24 AM EST) Anatomical Region Laterality Modality Body, Clavicle Left Radiographic Rin ging 07/27/2024 7:24 AM EST Narrative 07/27/2024 9:09 AM EST ? [facility] ?[address] ?[place] [address] ?XRay Report ? Signed ? Patient: Ovidio Lacy,Ginette ?MR ?? #: [id number] ? : 1975 ?Acct:[id number] ? Age/Sex: 49 / F ?ADM Date: 12/27/24 ? Loc: HO.ED ? Attending Dr: ? Ordering Physician: Jana Mcdaniel ?? Date of Service: 07/27/24 ?? Procedure(s): XR clavicle LT ?? Accession Number(s): [id number] ? cc: Mackenzie Estrada; Jana Mcdaniel ? [...] MD in OV> ?07/27/24 0905 ? DD/ ? TD/TT: 07/27/24733 ? Fiberglasser: ? Procedure Note Deepa Padgett - 07/27/[address] [address] XRay Report Signed Patient: Ginette ArceoMR #: [id number] : 1975Acct:[id number] Age/Sex: 49 / FADM Date: 07/27/24 Loc: .ED Attending Dr: Ordering Physician: Jana Mcdaniel Date of Service: 07/27/24 Procedure(s): XR clavicle LT Accession Number(s): [id number] cc: Mackenzie Estrada; Jana Mcdaniel EXAMINATION: XR [...] signed by Arian Mondragon MD in OV> 07/27/24904 DD/ 3 TD/TT: 07/27/24733 Fiberglasser: [facility] External Provider IMG XR PROCEDURES Final Result * XR Shoulder 2+ Views Left (07/27/2024 7:20 AM EST) Anatomical Region Laterality Modality Upper Extremities, Shoulder Left Radi ographic Imaging 07/27/2024 7:20 AM EST Narrative 07/27/2024 9:11 AM EST ? [facility] ?[address] ?[place] [address] ?XRay Report ? Signed ? Patient: Ovidio Lacy,Ginette ?MR ?? #: [id number] ? : 1975 ?Acct:[id number] ? Age/Sex: 49 / F ?ADM Date: 07/27/24 ? Loc: HO.ED ? Attending Dr: ? Ordering Physician: Jana Mcdaniel ?? Date of Service: 07/27/24 ?? Procedure(s): XR shoulder LT min 2V ?? Accession Number(s): [id number] ? cc: Mackenzie Estrada; Jana Mcdaniel ? [...] signed by Arian Mondragon MD in OV> ?07/27/24908 ? DD/ 9 ? TD/TT: 07/27/24 0734 ? Fiberglasser: ? Procedure Note Donotuseinterpreter, Image - 07/27/[address] [address] XRay Report Signed Patient: Ginette ArceoMR #: [id number] : 1975Acct:[id number] Age/Sex: 49 / FADM Date: 07/27/24 Loc: HO.ED Attending Dr: Ordering Physician: Jana Mcdaniel Date of Service: 07/27/24 Procedure(s): XR shoulder LT min 2V Accession Number(s): [id number] cc: Mackenzie Estrada; Jana Mcdaniel EXAMINATION: XR [...] by: Arian Mondragon MD 07/27/2024 09:09 AM [facility] Dictated By: Arian Mondragon MD Signed By: <Electronically signed by Arian Mondragon MD in OV> 07/27/24 0909 DD/ 0720 TD/TT: 07/27/24 0734 Fiberglasser: [facility] External Provider IMG XR PROCEDURES Final Result * XR Chest 2 Views (07/27/2024 7:20 AM EST) Anatomical Region Laterality Modality Chest Radiographic Rin ging 07/27/2024 7:20 AM EST Narrative 07/27/2024 9:10 AM EST ? [facility] ?[address] ?[place], [place] [address] ?XRay Report ? Signed ? Patient: Ovidio Ginette Lacy ?MR ?? #: [id number] ? : 1975 ?Acct:[id number] ? Age/Sex: 49 / F ?ADM Date: 07/27/24 ? Loc: HO.ED ? Attending Dr: ? Ordering Physician: Jana Mcdaniel ?? Date of Service: 07/27/24 ?? Procedure(s): XR chest 2V ?? Accession Number(s): [id number] ? cc: Mackenzie Estrada; Jana Mcdaniel ? [...] DD/ 0720 ? TD/TT: 07/27/24 0734 ? Fiberglasser: ? Procedure Note Lorin, Image - 07/27/[address] [address] XRay Report Signed Patient: Ginette ArceoMR #: [id number] : 1975Acct:[id number] Age/Sex: 49 / FADM Date: 07/27/24 Loc: HO.ED Attending Dr: Ordering Physician: Jana Mcdaniel Date of Service: 07/27/24 Procedure(s): XR chest 2V Accession Number(s): [id number] cc: Mackenzie Estrada; Jana Mcdaniel EXAMINATION: XR [...] Mondragon MD Signed By: <Electronically signed by Arain Mondragon MD in OV> 07/27/24 0906 DD/ 0720 TD/TT: 07/27/24 0734 Fiberglasser: [facility] External Provider IMG XR PROCEDURES Final Result * High Sensitivity Troponin I (07/27/2024 1:09 AM EST) TROPONIN I HIGH SENSITIVITY <2.7 <3.5 - 17.0 ng/L [facility] Comment:The Shea high sens itivity Troponin-I results should beused in conjunction with other diagnostic information suchas ECG, clinical observations and information, and patientsymptoms to aid in the diagnosis of MN. 07/27/2024 1:09 AM EST 07/27/2024 1:19 AM EST us Generic External Data Provider LAB BLOOD ORDERAB LES Final Result [facility] [address] [place], [place] [phone] * (ABNORMAL) CBC auto differential (07/27/2024 1:09 AM EST) White Blood Count 4.9 4.8 - 10.8 X10*3/uL [facility] Red Blood Count 3.62(L) 4.20 - 5.50 X10*6/uL [facility] Hemoglobin 10.2(L) 12.0 - 16.0 g/dl [facility] Hematocrit 31.7(L) 37.0 - 47.0 % [facility] Mean Corpuscular Volume 87.6 80.0 - 98.0 fL [facility] Mean Corpuscular Hemoglobin 28.2 27.0 - 33.0 pg [facility] Mean Corpuscular HGB Conc 32.2 31.0 - 35.0 g/dl [facility] Red Cell Distribution Width 14.0 11.0 - 16.0 % [facility] Platelet Count 300 160 - 400 X10*3/uL [facility] Mean Platelet Volume 10.1 9.4 - 12.3 fL [facility] Neutrophils Percent Auto 61.2 45 - 73 % [facility] Imm Gran Pct Auto 0.2 0.0 - 0.4 % [facility] Lymphocytes Percent Auto 29.7 20 - 40 % [facility] Monocytes Percent Auto 7.1 2 - 11 % [facility] Eosinophils Percent Auto 1.6 0 - 4 % [facility] Basophils Percent Auto 0.2 0 - 2 % [facility] NRBC Pct Auto 0.0 0.0 - 0.2 /100WBC [facility] Neutrophils Absolute Auto 3.0 2.0 - 8.3 x10*3/uL [facility] Imm Gran Abs Auto 0.01 0.00 - 0.03 X10*3/uL [facility] Lymphocytes Absolute Auto 1.5 1.2 - 4.9 X10*3/uL [facility] Monocytes Absolute Auto 0.4 0.1 - 1.2 X10*3/uL [facility] Eosinophils Absolute Auto 0.1 0.0 - 0.4 X10*3/uL [facility] Basophils Absolute Auto 0.0 0.0 - 0.2 X10*3/uL [facility] NRBC Abs Auto 0.000 0.0 - 0.012 X10*3/uL [facility] 07/27/2024 1:09 AM EST 07/27/2024 1:19 AM EST us Generic External Data Provider LAB BLOOD ORDERAB LES Final Result [facility] [address] [place] [address] [phone] * (ABNORMAL) Comprehensive Metabolic Panel (07/27/2024 1:09 AM EST) Sodium 140 135 - 145 mmol/L [facility] Potassium 3.1(L) 3.3 - 5.1 mmol/L [facility] Chloride 105 96 - 108 mmol/L [facility] Carbon Dioxide 23 22 - 29 mmol/L [facility] Anion Gap 15 12 - 20 [facility] Urea Nitrogen (BUN) 11 9 - 16 mg/dL [facility] Creatinine, Serum 0.73 0.5 - 1.4 mg/dL [facility] Creatinine Clr Calc Pharmacy 98.5 [facility] Comment:Provided height and weight: 162.56 cm,83.5 kg.eGFR (calculated from the MDRD study equation) and eCrCl(calculated from the Cockcroft-Gault equation) are based ondifferent parameters and may not yield comparable results.If eCrCl result is absurd, please check patient'sheight/weight. Estimated Glomerular Filt Rate >60 [facility] Comment:Chronic Kidney Disea se: Estimated GFR < 60 mL/min/1.95l8Kcqhpb Kidney Disease: Estimated GFR < 15 mL/min/1.73m2 Glucose 107 60 - 115 mg/dL [facility] Calcium 9.2 8.4 - 10.2 mg/dL [facility] Bilirubin, Total 0.5 0.0 - 1.0 mg/dL [facility] Aspartate Amino Transferase 48(H) 5 - 31 U/L [facility] Alanine Aminotransferase 32(H) 0 - 31 U/L [facility] Total Protein 8.5(H) 6.5 - 8.0 g/dL [facility] Albumin Level 3.7 3.5 - 5.0 g/dL [facility] Alkaline Phosphatase 151(H) 39 - 117 U/L [facility] 07/27/2024 1:09 AM EST 07/27/2024 1:19 AM EST us Generic External Data Provider LAB BLOOD ORDERAB LES Final Result Performing Organization Address [facility]/ZIP Co de Phone Number [facility] [address] [place] [phone] * Hepatitis C Ab (04/11/2024 10:26 AM EDT) Hepatitis C Antibody Nonreactive Nonreactive [facility] Comment:Antibodies to HCV no t detected; does not exclude early acuteHCV infection. Blood Venous blood specimen / Unknown 04/11/2024 10:26 AM EDT 04/11/2024 11:19 AM EDT us Mackenzie Estrada MD LAB BLOOD ORDERABLES Final Res ult Performing Organization Address [facility]/ZIP Co de Phone Number [facility] [address] [place] [phone] * HIV-1/2 Antigen and Antibodies, Fourth Generation, with Reflexes (04/11/2024 10:26 AM EDT) HIV AB/AG Nonreactive Nonreactive [facility] Comment:HIV-1 p24 Ag and/or HIV-1/HIV-2 Ab not detected.A test result that is nonreactive does not exclude thepossibility of exposure to or infection with HIV-1 and/orHIV-2. Nonreactive results in this assay for individualswith prior exposure to HIV-1 and/or HIV-2 may be due toantigen and antibody levels that are below the limit ofdetection of this assay.The [employer] HIV Ag/Ab Combo assay result andsupplemental assay results should be interpreted inconjunction with the patient's clinical presentation,history and other laboratory results. If the results areinconsistent with clinical evidence, additional testing issuggested to confirm the result. Blood Venous blood specimen / Unknown 04/11/2024 10:26 AM EDT 04/11/2024 11:19 AM EDT us Mackenzie Estrada MD LAB BLOOD ORDERABLES Final Res ult [facility] [address] [place] [phone] * HPV mRNA E6/E7 w/Reflex to HPV Genotypes 16, 18/45 (09/29/2023 12:26 PM EST) HPV nRNA E6/E7 Not Detected Not Detected [facility] Comment:Methodology: Transcr iption-Mediated AmplificationThis assay detects E6/E7 viral messenger RNA (mRNA) from 14high-risk HPV types (16,18,31,33,35,39,45,51,52,56,58,59,66,68).Cervical sources are required for HPV testing.If a vaginal source from a patient who has had atotal hysterectomy with removal of cervix wassubmitted, please contact the testing laboratoryfor alternative testing options.For additional information, please refer tohttp://education.OnMyBlock/faq/PCH125e3(This link if provided for information/educational purposes only.)THIS TEST WAS PERFORMED AT:[facility] [place] [phone] GALVAN MD HPV mRNA E6/E7 [facility] HPV 16 RNA [facility] HPV 18/45 RNA TNP [facility] 09/29/2023 12:2 6 PM EST 09/30/2023 11:30 AM EST Mackenzie Estrada MD LAB CYTOLOGY ORDERABLES Final Result [facility] [address] [place] [phone] * Pap Smear (09/29/2023 12:26 PM EST) 09/29/2023 12:2 6 PM EST 09/30/2023 11:30 AM EST Narrative [facility] - 10/12/2023 4:18 PM EDT ----- ------- Name: Ginette Arceo ?Age/Sex: 48/F ? : 1975 Unit#: [id number] ?? Attend Dr: Mackenzie Estrada ?Re09/29/23 ?Status: DEP REF ? Location: [facility] ? Disch: ? ----- ------- SPEC : [id number] ? RECD: 09/30/23 ? STATUS: ??SOUT ? REQ NUM: [id number] ? HBAVIN: 09/29/23 ? SUBM DR: Mackenzie Estrada ? ENTERED: ??09/30/23 ?SP TYPE: Pap Smr ?OTHR : ? ORDERED: ??Pap Smear ? Interpretation ?? Satisfactory for evaluation. ?? Negative for intraepithelial lesion or malignancy. ?HPV mRNA E6/E7: ?NOT DETECTED ? This assay detects E6/E7 viral messenger RNA (mRNA) from 14 high-risk HPV types (16, 18, ?? 31, 33, 35, 39, 45, 51, 52, 56, 58, 59, 66, 68) ?? HPV testing performed by [facility] [facility], [place], [place]. ??See reference laboratory ?? portion of the EMR for entire report. ?Clinical Information LMP: Heavy menstrual bleeding past two weeks Previous PAP test: Unknown date/findings Other history: ? Material Received ?? ThinPrep-Cervical ----- ------- Signed (signature on file) ABRB Hawley ([facility]) 10/12/23 1618 ? ----- ------- ? END OF REPORT ? Mackenzie Estrada MD LAB CYTOLOGY ORDERABLES Final Result [facility] [address] [place] [phone] * Mammography Report 1 (10/09/2021 12:05 PM EST) Anatomical Region Laterality Modality Breast Bilateral Mammography 10/09/2021 12:0 5 PM EST Narrative 10/12/2021 2:06 PM EDT Refer to the Notes tab for result details [facility] Procedure: Mammography Report 1 Procedure Note ProviderWaqar MD - 10/24/2022 Refer to the Notes tab for result details [facility] Procedure: Mammography Report 1 Mackenzie Estrada MD IMG BI PROCEDURES Final Result * (ABNORMAL) LIPID PANEL, STANDARD (09/14/2021 2:52 PM EST) Chol/HDLC Ratio 5.7(H) <5.0 (calc) [facility] Cholesterol, Total 212(H) <200 mg/dL [...] ?? Hi COELLO et al. ROXY. 2013;310(19): 6375-6756 ?? (http://[place] [employer]/faq/[email or web address]) Non-HDL Cholesterol 175(H) <130 mg/dL (calc) [facility] [...] fasting specimen if clinically indicated. ?? Cory et al. J. of Clin. Lipidol. 2015;9:129-169. ?? 09/14/2021 2:52 PM EST Mackenzie Estrada MD LAB BLOOD ORDERABLES Final Res ult [facility] [address] * Colonoscopy (10/28/2017) Colonoscopy Normal Normal Narrative Cecilia Henriquez - 10/28/2017 Recommended 10 year follow up ([facility] [place]) Historical Provider HEALTH MAINTENANCE Edited Result - Final from Last 3 Months or Most Recently Relevant to Health Maintenance Insurance [facility] [address] [place] [address] DENTAL-[facility] MEDICAID STAND ADULT Care Teams Slip Cover Estimator Relationship Specialty Start Date End Date Mackenzie Estrada MD [address] [place] [address] PCP - General Family Medicine 07/10/20
--- OUTSIDE RECORDS SUMMARY | 2024-10-17 12:02 | XMS_ITS | Encounter Summary ---
Author Organization [employer] Address [address] [place] [address] Care Team Providers Care Professor Of Legal Studies Name Role Phone Mackenzie Estrada MD Primary Care Provider [phone] Encounter Details Date Type Department Care Team (Late st Contact Info) Description 10/03/2023 Orders Only [facility] [address] [place], [place] [phone] Mackenzie Estrada MD [address] [place], [place] [phone] Bacterial vaginosis (Primary Dx) Social History Tobacco [...] Description 11/06/2024 9:45 AM EDT Office Visit [address] [address] 12/28/2024 9:45 AM EDT Office Visit [address] [address] Mackenzie Estrada MD [address] [place] [phone] documented as of this encounter Goals Goal Patient Goal Type Associated Problems Recent Progress Patient-Stated? Author Quit using tobacco (cigarettes, smokeless, etc) Tobacco Use No Corey Lin, PharmD documented as of this encounter Visit Diagnoses Diagnosis Bacterial vaginosis- Primary Unspecified vaginitis and vulvovaginitis documented in this encounter Care Teams Professor Of Legal Studies Relationship Specialty Start Date End Date Mackenzie Estrada MD [address] [place] [phone] PCP - General Family Medicine 07/10/20 documented as of this encounter
--- OUTSIDE RECORDS SUMMARY | 2024-10-17 12:03 | XMS_ITS | Encounter Summary ---
Author Organization [employer] Address [address] [facility] 7t [place] [address] Care Team Providers Care Station Air Traffic Control Specialist Name Role Phone Mackenzie Estrada MD Primary Care Provider [phone] Reason for Referral * Imaging (Routine) - Closed Specialty Diagnoses / Procedures Referred By Keshia t Referred To Contact Radiology Diagnoses Screening mammogram for breast cancer Procedures BI Mammogram Screening Tomosynthesis Bilateral Mackenzie Estrada MD [address] [place] [address] Phone: tel: fax: [address] Phone: tel: fax: Referral ID Status Reason Start Date Expiration Date Visits Re quested Visits Authorized [id number] Closed 09/28/2024 09/28/2025 1 1 Encounter Details Date Type Department Care Team (Late st Contact Info) Description 09/24/2024 3:15 PM EST Office Visit [facility] [address] [place] [address] [phone] Mackenzie Estrada MD [address] [place], [place] [phone] Rheumatoid arthritis involving multiple sites with positive [...] Pelvic pain MRI pelvis results, [place] [facility] [place] IMPRESSION: * Normal uterus and [...] adult History of DVT (deep vein thrombosis) longterm current use of anticoagulant Personal history of Hodgkin lymphoma Axillary lymphadenopathy 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 (CMS/HCC) 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 (CMS/HCC) Inflammatory arthritis Periodontal disease Epicondylitis elbow, medial, left NSTEMI (non-ST elevated myocardial infarction) ([facility]/HCC) Right hip pain Pain and swelling of [...] I ground floor apartment 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 FOLDING 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 Social Drivers of Health Food Insecurity: [...] (CMS/HCC) - Primary Overview - [place] [facility] Rheumatoloy Current Assessment & Plan Uncontrolled, [...] collapse of femoral head present on x-ray ([facility]) NSTEMI (non-ST elevated myocardial infarction) ([facility]) Overview 05/2024 Catheterization revealed mid LAD plaque [...] at 09/2024 refill Indication: Rheumatoid arthritis Last GASOLINE CATALYST OPERATOR Agreement: 06/12/24 Tier: II (Q3 months visits), Dr. Estrada 08/15/24 Current Assessment & Plan Has Narcan at home GASOLINE CATALYST OPERATOR agreement UTD Seeing group pain visits for GASOLINE CATALYST OPERATOR Other Visit Diagnoses Dietary counseling Exercise counseling Screening mammogram for breast cancer Relevant Orders BI Mammogram Screening Tomosynthesis Bilateral Follow Up: 3 months or sooner prn Allergies Allergen Reactions Almonds [[place] Oil] Anaphylaxis [place] (Diagnostic) Morphine Other reaction(s): Unknown Pedi-Pre Tape Aldrich [Wound Dressing Adhesive] Tramadol Other reaction(s): Vomiting [...] Rfl: beta carotene (vitamin A) 3 MG (21198 UT) capsule, Take by mouth in the [...] tablet, Rfl: 3 [employer] (GUARDIAN Sharps Buffing Turner [employer] Counter) [facility], , Disp: , Rfl: traZODone (Desyrel) 150 MG tablet, take 1 tablet by oral route every day at bedtime as needed, Disp: , Rfl: Umeclidinium [place] (Incruse Ellipta) 62.5 MCG/ACT aerosol powder , INHALE 1 PUFF BY MOUTH EVERY DAY AT THE SAME TIME, Disp: 1 each, Rfl: 11 ursodiol (Sushil) 250 MG tablet, Take 1 tablet (250 mg) by mouth 2 times daily., Disp: 60 tablet, Rfl: 11 Vitamin D High Potency 25 MCG (1000 UT) capsule, Take 25 mcg by mouth in the morning., Disp: , Rfl: Indian Translation: Provided by [facility] staff member SARAI Gamino documented in this encounter Miscellaneous Notes * Assessment & Plan Note - Mackenzie Estrada MD - 09/28/2024 8:21 AM ESTAssociated Problem(s): Long-term current use of opiate analgesic Has Narcan at home GASOLINE CATALYST OPERATOR agreement UTD Seeing group pain visits for GASOLINE CATALYST OPERATOR * Assessment & Plan Note - Mackenzie Estrada MD - 09/28/2024 8:20 AM ESTAssociated Problem(s): Rheumatoid arthritis involving multiple sites ([facility]) Uncontrolled, active disease, high ESR Orencia providing [...] Description 11/06/2024 9:45 AM EDT Office Visit [facility] [address] [place] [address] 12/28/2024 9:45 AM EDT Office Visit [facility] [address] [place] [phone] Mackenzie Estrada MD [address] [place] [address] Scheduled Orders Name Type Priority Associated Diagnoses [...] involving multiple sites with positive rheumatoid factor ([facility])- Primary Dietary counseling Dietary surveillance and counseling Exercise counseling Class 1 obesity with serious comorbidity and body mass index (BMI) of 33.0 to 33.9 in adult, unspecified obesity type Nodular sclerosis Hodgkin lymphoma of lymph nodes of multiple regions ([facility]) NSTEMI (non-ST elevated myocardial infarction) ([facility]) Acute myocardial infarction, subendocardial infarction, episode of care unspecified 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 ([facility]) Class 1 obesity Chronic low back pain, unspecified back pain laterality, unspecified whether sciatica present Long-term current use of opiate analgesic Encounter for long-term (current) use of other medications Screening mammogram for breast cancer documented in this encounter Additional Health Concerns Assessment Noted Time PHQ-9 Depression Total Score: 2 04/30/20 24 10:41 AM EDT documented as of this encounter Care Teams Station Air Traffic Control Specialist Relationship Specialty Start Date End Date Mackenzie Estrada MD [address] [place] [address] PCP - General Family Medicine 07/10/20 documented as of this encounter
--- OUTSIDE RECORDS SUMMARY | 2024-10-17 12:03 | XMS_ITS | Encounter Summary ---
Author Organization [employer] Address [address] [facility] 7t [place] [address] Care Team Providers Care Crusher Foreman Name Role Phone Mackenzie Estrada MD Primary Care Provider [phone] Reason for Visit * Reason Onset Date Comments Med Refill 09/19/2024 Encounter Details Date Type Department Care Team ([facility] st Contact Info) Description 09/19/2024 Refill [facility] [address] [place], [place] [phone] Kaylene Samano, RN Osteonecrosis of hip with [...] 10:40 AM EST Spoke with Thi at [facility] pharmacy, requested Percocet RX for 09/20/24 be D/C'd. documented in this encounter Plan of Treatment Upcoming Encounters Date Type Department Care Team (Late st Contact Info) Description 11/06/2024 9:45 AM EDT Office Visit [facility] [address] [place] [address] 12/28/2024 9:45 AM EDT Office Visit [facility] [address] [place] [address] Mackenzie Estrada MD [address] [place] [address] documented as of this encounter Goals Goal [...] documented as of this encounter Care Teams Crusher Foreman Relationship Specialty Start Date End Date Mackenzie Estrada MD [address] [place] [address] PCP - General Family Medicine 07/10/20 documented as of this encounter
--- OUTSIDE RECORDS SUMMARY | 2024-10-17 12:03 | XMS_ITS | Encounter Summary ---
Author Organization [employer] Address [address] [facility] 7t [place] [address] Care Team Providers Care Diving Coach Name Role Phone Mackenzie Estrada MD Primary Care Provider [phone] Reason for Visit * Reason Comments Med Refill Encounter Details Date Type Department Care Team ([facility] st Contact Info) Description 07/26/2023 Refill [facility] [address] [place], [place] [phone] Name, MD Mark [address] [place] [address] Pain in both hands Social History Tobacco [...] Description 11/06/2024 9:45 AM EDT Office Visit [address] [address] 12/28/2024 9:45 AM EDT Office Visit [address] [address] Mackenzie Estrada MD [address] [place] [address] documented as of this encounter Goals Goal Patient Goal Type Associated Problems Recent Progress Patient-Stated? Author Quit using tobacco (cigarettes, smokeless, etc) Tobacco Use No Corey Lin, PharmD documented as of this encounter Visit Diagnoses Diagnosis Pain in both hands documented in this encounter Care Teams Diving Coach Relationship Specialty Start Date End Date Mackenzie Estrada MD [address] [place] [address] PCP - General Family Medicine 07/10/20 documented as of this encounter
--- OUTSIDE RECORDS SUMMARY | 2024-10-17 12:03 | XMS_ITS | Encounter Summary ---
Author Organization [employer] Address [address] [facility] 7t [place] [address] Care Team Providers Care Elevator Worker Name Role Phone Mackenzie Estrada MD Primary Care Provider [phone] Reason for Visit * Reason Onset Date Comments Error 08/16/2023 Encounter Details Date Type Department Care Team ([facility] Contact Info) Description 08/16/2023 Telephone [facility] [address] [place], [place] [phone] Mackenzie Estrada MD [address] [place], [place] [phone] Error Social History Tobacco Use Types Packs/Day [...] Description 11/06/2024 9:45 AM EDT Office Visit [address] [address] 12/28/2024 9:45 AM EDT Office Visit [address] [address] Mackenzie Estrada MD [address] [place] [address] documented as of this encounter Goals Goal Patient Goal Type Associated Problems Recent Progress Patient-Stated? Author Quit using tobacco (cigarettes, smokeless, etc) Tobacco Use No Corey Lin, PharmD documented as of this encounter Visit Diagnoses Not on filedocumented in this encounter Care Teams Elevator Worker Relationship Specialty Start Date End Date Mackenzie Estrada MD [address] [place] [phone] PCP - General Family Medicine 07/10/20 documented as of this encounter
--- OUTSIDE RECORDS SUMMARY | 2024-10-17 12:03 | XMS_ITS | Encounter Summary ---
Author Organization [employer] Address [address] [facility] 7t [place] [address] Care Team Providers Care Solar Energy System Installer Name Role Phone Mackenzie Estrada MD Primary Care Provider Reason for Visit * Reason Comments Med Refill Encounter Details Date Type Department Care Team ([facility] Contact Info) Description 07/28/2022 Refill [facility] [address] [place] [address] Mackenzie Estrada MD [address] [place] [address] Pain in both hands Social History Tobacco [...] Description 11/06/2024 9:45 AM EDT Office Visit [facility] [address] [place] [address] 12/28/2024 9:45 AM EDT Office Visit [facility] [address] [place] [address] Mackenzie Estrada MD [address] [place] [address] documented as of this encounter Visit Diagnoses Diagnosis Pain in both hands documented in this encounter Care Teams Solar Energy System Installer Relationship Specialty Start Date End Date Mackenzie Estrada MD [address] [place] [address] PCP - General Family Medicine 07/10/20 documented as of this encounter
--- OUTSIDE RECORDS SUMMARY | 2024-10-17 12:03 | XMS_ITS | Encounter Summary ---
Author Organization [employer] Address [address] [facility] 7t [place] [address] Care Team Providers Care Apiculture Teacher Name Role Phone Mackenzie Estrada MD Primary Care Provider [phone] Reason for Visit * Reason Onset Date Comments Appointment Request 08/16/2023 Encounter Details Date Type Department Care Team ([facility] Contact Info) Description 08/16/2023 Telephone [facility] [address] [place], [place] [phone] Mackenzie Estrada MD [address] [place] [address] Appointment Request Social History Tobacco Use Types [...] * Telephone Encounter - Rigo Martinez - 08/16/2023 10:35 AM EST Tc from pt confirming that she will be attending the appt tomorrow 08/17. If any questions you can contact pt with number listed in message prior. * Telephone Encounter - Amada Chance - 08/16/2023 9:39 AM EST Tc from pt requesting if there is anything available for today to be seen today. Please contact pt @ [phone] Bulgarian Speaker documented in this encounter Plan of Treatment Upcoming Encounters Date Type Department Care Team (Late st Contact Info) Description 11/06/2024 9:45 AM EDT Office Visit [facility] [address] [place] [address] 12/28/2024 9:45 AM EDT Office Visit [facility] [address] [place] [address] Mackenzie Estrada MD [address] [place] [address] documented as of this encounter Goals Goal Patient Goal Type Associated Problems Recent Progress Patient-Stated? Author Quit using tobacco (cigarettes, smokeless, etc) Tobacco Use No Corey Lin, KelechiD documented as of this encounter Visit Diagnoses Not on filedocumented in this encounter Care Teams Apiculture Teacher Relationship Specialty Start Date End Date Mackenzie Estrada MD [address] [place] [address] PCP - General Family Medicine 07/10/20 documented as of this encounter
--- OUTSIDE RECORDS SUMMARY | 2024-10-17 12:03 | XMS_ITS | Encounter Summary ---
Author Organization [employer] Address 75 [facility] 7t [place] [address] Care Team Providers Care Operations Associate Name Role Phone Mackenzie Estrada MD Primary Care Provider [phone] Reason for Visit * Reason Comments Med Refill Encounter Details Date Type Department Care Team (Late Contact Info) Description 09/22/2022 Refill [facility] 230 [place], [place] [phone] Sarika Palacios ANP 230 [place], [place] [phone] Tinea pedis of both feet Social History [...] Upcoming Encounters Date Type Department Care Team ([facility] Contact Info) Description 11/06/2024 9:45 AM EDT Office Visit [facility] MEDICINE [address] [place] [address] [phone] 12/28/2024 9:45 AM EDT Office Visit [facility] MEDICINE [address] [place] [address] Mackenzie Estrada MD 230 [place] [address] documented as of this encounter Visit Diagnoses Diagnosis Tinea pedis of both feet documented in this encounter Care Teams Operations Associate Relationship Specialty Start Date End Date Mackenzie Estrada MD 230 [place] [address] PCP - General Family Medicine 07/10/20 documented as of this encounter
--- OUTSIDE RECORDS SUMMARY | 2024-10-17 12:03 | XMS_ITS | Encounter Summary ---
Author Organization [employer] Address 75 [facility] 7t [place] [address] Care Team Providers Care Surface Grinder Name Role Phone Mackenzie Estrada MD Primary Care Provider Reason for Visit * Reason Comments Med Refill Encounter Details Date Type Department Care Team ([facility] Contact Info) Description 09/17/2024 Refill [facility] 230 [place], [place] [phone] Mackenzie Estrada MD 230 [place], [place] [phone] Social History Tobacco Use Types Packs/Day Years [...] your housing situation today? I have mendoza prnice 05/15/[address] you li [...] Description 11/06/2024 9:45 AM EDT Office Visit [facility] [address] [place] [address] 12/28/2024 9:45 AM EDT Office Visit [facility] [address] [place] [address] Mackenzie Estrada MD [address] [place] [address] documented as of this encounter Goals Goal [...] documented as of this encounter Care Teams Surface Grinder Relationship Specialty Start Date End Date Mackenzie Estrada MD [address] [place] [address] 12067 PCP - General Family Medicine 07/10/20 documented as of this encounter
--- OUTSIDE RECORDS SUMMARY | 2024-10-17 12:03 | XMS_ITS | Encounter Summary ---
Author Organization [employer] Address [address] [facility] [address] 7t [place] [address] Care Team Providers Care Food Preparer Name Role Phone Mackenzie Estrada MD Primary Care Provider [phone] Encounter Details Date Type Department Care Team [...] 9:45 AM EDT Office Visit [facility] MEDICINE [address] [place] [address] 12/28/2024 9:45 AM EDT Office Visit [address] [address] Mackenzie Estrada MD [address] [place] [address] documented as of this encounter Goals Goal [...] documented as of this encounter Care Teams Food Preparer Relationship Specialty Start Date End Date Mackenzie Estrada MD [address] [place] [address] PCP - General Family Medicine 07/10/20 documented as of this encounter
--- OUTSIDE RECORDS SUMMARY | 2024-10-17 12:03 | XMS_ITS | Encounter Summary ---
Author Organization [employer] Address 75 [facility] 7t [place] [address] Care Team Providers Care Heel Nailing Machine Operator Name Role Phone Mackenzie Estrada MD Primary Care Provider [phone] Encounter Details Date Type Department Care Team ([facility] st Contact Info) Description 10/02/2024 Telephone [facility] Information Management 230 [place], [place] [phone] Mackenzie Estrada MD 230 [place] [address] Social History Tobacco Use Types Packs/Day Years [...] Robert Riggs - 10/02/2024 8:14 AM EST [facility] incoming fax; Pt states she is having [...] Description 11/06/2024 9:45 AM EDT Office Visit [facility] MEDICINE [address] [place] [address] 12/28/2024 9:45 AM EDT Office Visit [facility] MED[facility] [address] [place] [address] Mackenzie Estrada MD [address] [place] [address] documented as of this encounter Goals Goal [...] as of this encounter Care Teams Heel Nailing Machine Operator Relationship Specialty Start Date End Date Mackenzie Estrada MD 230 [place] [address] PCP - General Family Medicine 07/10/20 documented as of this encounter
--- OUTSIDE RECORDS SUMMARY | 2024-10-17 12:03 | XMS_ITS | Encounter Summary ---
Author Organization [employer] Address [address] [facility] [address] 7t [place] [address] Care Team Providers Care Steam Box Hand Name Role Phone Mackenzie Estrada MD Primary Care Provider [phone] Encounter Details Date Type Department Care Team ([facility] st Contact Info) Description 05/21/2024 Telephone [facility] MEDICINE 230 [place], [place] [phone] Mackenzie Estrada MD 230 [place], [place] [phone] Social History Tobacco Use Types Packs/Day Years [...] 11/06/2024 9:45 AM EDT Office Visit [address] [address] 12/28/2024 9:45 AM EDT Office Visit [address] [address] Mackenzie Estrada MD [address] [place] [address] documented as of this encounter Goals Goal [...] documented as of this encounter Care Teams Steam Box Hand Relationship Specialty Start Date End Date Mackenzie Estrada MD [address] [place] [address] PCP - General Family Medicine 07/10/20 documented as of this encounter
--- OUTSIDE RECORDS SUMMARY | 2024-10-17 12:03 | XMS_ITS | Encounter Summary ---
Author Organization [employer] Address [address] [facility] [address] 7t [place] [address] Care Team Providers Care Technician'S Helper Name Role Phone Mackenzie Estrada MD Primary Care Provider [phone] Reason for Visit * Reason Comments Med Refill Encounter Details Date Type Department Care Team ([facility] st Contact Info) Description 08/26/2023 Refill [facility] MED[facility] 230 [place] [address] Sisi Kennedy FNP 505 [place], [place] [phone] Viral upper respiratory tract infection Social History [...] Description 11/06/2024 9:45 AM EDT Office Visit [address] [address] 12/28/2024 9:45 AM EDT Office Visit [address] [address] Mackenzie Estrada MD [address] [place] [address] documented as of this encounter Goals Goal Patient Goal Type Associated Problems Recent Progress Patient-Stated? Author Quit using tobacco (cigarettes, smokeless, etc) Tobacco Use No Corey Lin, PharmD documented as of this encounter Visit Diagnoses Diagnosis Viral upper respiratory tract infection Acute upper respiratory infections of unspecified site documented in this encounter Care Teams Technician'S Helper Relationship Specialty Start Date End Date Mackenzie Estrada MD [address] [place] [address] PCP - General Family Medicine 07/10/20 documented as of this encounter
--- OUTSIDE RECORDS SUMMARY | 2024-10-17 12:03 | XMS_ITS | Encounter Summary ---
Author Organization [employer] Address 75 [facility] 7t [place] [address] Care Team Providers Care Intensive Care Anaesthetist Name Role Phone Mackenzie Estrada MD Primary Care Provider [phone] Reason for Visit * Reason Comments Med Refill Encounter Details Date Type Department Care Team ([facility] Contact Info) Description 07/27/2023 Refill [facility] MEDICINE 230 [place], [place] [phone] Name, MD Mark 230 [place] [address] Pain in both hands Social History Tobacco [...] Description 11/06/2024 9:45 AM EDT Office Visit [address] [address] 12/28/2024 9:45 AM EDT Office Visit [address] [address] Mackenzie Estrada MD [address] [place] [address] documented as of this encounter Goals Goal Patient Goal Type Associated Problems Recent Progress Patient-Stated? Author Quit using tobacco (cigarettes, smokeless, etc) Tobacco Use No Corey Lin, PharmD documented as of this encounter Visit Diagnoses Diagnosis Pain in both hands documented in this encounter Care Teams Intensive Care Anaesthetist Relationship Specialty Start Date End Date Mackenzie Estrada MD [address] [place] [address] PCP - General Family Medicine 07/10/20 documented as of this encounter
--- OUTSIDE RECORDS SUMMARY | 2024-10-17 12:03 | XMS_ITS | Encounter Summary ---
Author Organization [employer] Address 75 [facility] [address] 7t [place] [address] Care Team Providers Care Clock Maker Name Role Phone Mackenzie Estrada MD Primary Care Provider [phone] Encounter Details Date Type Department Care Team (Late st Contact Info) Description 05/10/2024 Orders Only [facility] MEDICINE 230 [place], [place] [phone] Mackenzie Estrada MD 230 [place] [address] Social History Tobacco Use Types Packs/Day Years [...] Office Visit [facility] MEDICINE [address] [place] [address] 12/28/2024 9:45 AM EDT Office Visit [address] [address] Mackenzie Estrada MD [address] [place] [address] documented as of this encounter Goals Goal Patient Goal Type Associated Problems Recent Progress Patient-Stated? Author Quit using tobacco (cigarettes, smokeless, etc) Tobacco Use Corey Cornell, KelechiD documented as of this encounter Visit Diagnoses Not on filedocumented in this encounter Additional Health Concerns Assessment Noted Time PHQ-9 Depression Total Score: 2 04/30/20 24 10:41 AM EDT documented as of this encounter Care Teams Clock Maker Relationship Specialty Start Date End Date Mackenzie Estrada MD [address] [place] [address] PCP - General Family Medicine 07/10/20 documented as of this encounter
--- OUTSIDE RECORDS SUMMARY | 2024-10-17 12:03 | XMS_ITS | Encounter Summary ---
Author Organization [employer] Address 75 [facility] 7t [place] [address] Care Team Providers Care Furniture Fabricator Name Role Phone Mackenzie Estrada MD Primary Care Provider [phone] Reason for Visit * Reason Comments Med Refill Encounter Details Date Type Department Care Team ([facility] st Contact Info) Description 09/24/2024 Refill [facility] 230 [place], [place] [phone] Mackenzie Estrada MD 230 [place], [place] [phone] Gastroesophageal reflux disease with hiatal hernia Social [...] Description 11/06/2024 9:45 AM EDT Office Visit [facility] [address] [place] [address] 12/28/2024 9:45 AM EDT Office Visit [facility] [address] [place] [address] Mackenzie Estrada MD [address] [place] [address] documented as of this encounter Goals Goal [...] documented as of this encounter Care Teams Furniture Fabricator Relationship Specialty Start Date End Date Mackenzie Estrada MD [address] [place] [address] PCP - General Family Medicine 07/10/20 documented as of this encounter
--- OUTSIDE RECORDS SUMMARY | 2024-10-17 12:03 | XMS_ITS | Encounter Summary ---
Author Organization [employer] Address [address] [facility] [address] 7t [place] [address] Care Team Providers Care Health Economist Name Role Phone Mackenzie Estrdaa MD Primary Care Provider [phone] Encounter Details Date Type Department Care Team (Late st Contact Info) Description 10/01/2024 Telephone [facility] [address] [place] [address] Kailash, Libra, OD [address] [place] [address] Social History Tobacco Use Types Packs/Day Years [...] 9:45 AM EDT Office Visit [facility] MEDICINE [address] [place] [address] 12/28/2024 9:45 AM EDT Office Visit [address] [address] Mackenzie Estrada MD [address] [place] [address] documented as of this encounter Goals Goal [...] documented as of this encounter Care Teams Health Economist Relationship Specialty Start Date End Date Mackenzie Estrada MD [address] [place] [address] PCP - General Family Medicine 07/10/20 documented as of this encounter
--- OUTSIDE RECORDS SUMMARY | 2024-10-17 12:03 | XMS_ITS | Encounter Summary ---
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 documented in this encounter Plan of Treatment Upcoming Encounters Date Type Department Care Team (Late st Contact Info) Description 11/06/2024 9:45 AM EDT Office Visit [facility] MEDICINE [address] [place] [address] 12/28/2024 9:45 AM EDT Office Visit [facility] MEDICINE [address] [place] [address] Mackenzie Estrada MD 230 [place] [address] documented as of this encounter Goals Goal [...] documented as of this encounter Care Teams Seismic Prospecting Observer Helper Relationship Specialty Start Date End Date Mackenzie Estrada MD [address] [place] [address] PCP - General Family Medicine 07/10/20 documented as of this encounter
--- OUTSIDE RECORDS SUMMARY | 2024-10-17 12:03 | XMS_ITS | Encounter Summary ---
Author Organization [employer] Address 75 [facility] 7t [place] [address] Care Team Providers Care Media Relations Manager Name Role Phone Mackenzie Estrada MD Primary Care Provider [phone] Reason for Visit * Reason Comments Med Refill Encounter Details Date Type Department Care Team ([facility] st Contact Info) Description 07/21/2023 Refill [place] [facility] 230 [place], [place] [phone] Name, MD Mark 230 [place] [address] Pain in both hands Social History Tobacco [...] Description 11/06/2024 9:45 AM EDT Office Visit [address] [address] 12/28/2024 9:45 AM EDT Office Visit [address] [address] Mackenzie Estrada MD [address] [place] [address] documented as of this encounter Goals Goal Patient Goal Type Associated Problems Recent Progress Patient-Stated? Author Quit using tobacco (cigarettes, smokeless, etc) Tobacco Use No Corey Lin, PharmD documented as of this encounter Visit Diagnoses Diagnosis Pain in both hands documented in this encounter Care Teams Media Relations Manager Relationship Specialty Start Date End Date Mackenzie Estrada MD [address] [place] [address] PCP - General Family Medicine 07/10/20 documented as of this encounter
--- OUTSIDE RECORDS SUMMARY | 2024-10-17 12:03 | XMS_ITS | Encounter Summary ---
Author Organization [employer] [facility] Address 75 [facility] 7t [place] [address] Care Team Providers Care Coffee Plantation Worker Name Role Phone Mackenzie Estrada MD Primary Care Provider Reason for Visit * Reason Comments Med Refill Encounter Details Date Type Department Care Team ([facility] Contact Info) Description 08/25/2022 Refill [facility] MEDICINE [address] [place] [address] [phone] Mackenzie Estrada MD 230 [place], [place] [phone] Pain in both hands Social History Tobacco [...] Upcoming Encounters Date Type Department Care Team ([facility] Contact Info) Description 11/06/2024 9:45 AM EDT Office Visit [facility] MEDICINE [address] [place] [address] [phone] 12/28/2024 9:45 AM EDT Office Visit [facility] MEDICINE [address] [place] [address] [phone] Mackenzie Estrada MD 230 [place], [place] [phone] documented as of this encounter Visit Diagnoses Diagnosis Pain in both hands documented in this encounter Care Teams Coffee Plantation Worker Relationship Specialty Start Date End Date Mackenzie Estrada MD 230 [place], [place] [phone] PCP - General Family Medicine 07/10/20 documented as of this encounter
== END ==
LOC: HO.CARD 10:16
PROVIDERS: PCP General Practice; Visit Provider Internal Medicine Cardiovascular Disease
DX: I21.4 Non-ST elevation (NSTEMI) myocardial infarction (principal)
CPT/HCPCS: 93306

== ENCOUNTER → 2024-10-17 10:20 | Outpatient (BNV) | payer MEDICAID, SELFPAY | PROVIDERS: PCP General Practice; Visit Provider Internal Medicine Cardiovascular Disease | DX: I21.4 Non-ST elevation (NSTEMI) myocardial infarction (principal); I35.0 Nonrheumatic aortic (valve) stenosis | CPT/HCPCS: 93306 ==

== ENCOUNTER 2024-11-06 12:36 | Outpatient (REF) | payer MEDICAID, SELFPAY ==
--- NOTE | ~2024-11-06 | US_ITS ---
EXAMINATION: Noninvasive assessment of the bilateral lower extremities with ARTERIAL DUPLEX, ANKLE BRACHIAL INDICES (ABIs), and PULSE VOLUME RECORDINGS (PVRs). CLINICAL INFORMATION: Occlusion superficial femoral artery. TECHNIQUE: Duplex Doppler techniques with waveform analysis and measurement of velocities in the bilateral common femoral, profunda femoris, superficial femoral, popliteal and tibial arteries were performed. Additionally, ankle pulse volume recordings, ankle pressure measurements and ankle brachial indices were obtained of the lower extremity arterial system bilaterally. The study was performed only at rest. COMPARISON: None FINDINGS: DIRECT DUPLEX DOPPLER FINDINGS: RIGHT LEG: Common femoral artery: 116 cm/s, phasicity: Biphasic. Profunda femoris artery: 85 cm/s, phasicity: Monophasic. Superficial femoral artery (proximal): [Occluded. Superficial femoral artery (mid): Occluded. Superficial femoral artery (distal): Occluded. Popliteal artery: 40 cm/s, phasicity: Monophasic. Posterior tibial artery: 40 cm/s, phasicity: Monophasic. Peroneal artery: 29 cm/s, phasicity: Monophasic. Anterior tibial artery: 12 cm/s, phasicity: Monophasic. Dorsalis pedis artery: 37 cm/s, phasicity:Monophasic. LEFT LEG: Common femoral artery: 60 cm/s, phasicity: Monophasic. Profunda femoris artery: 61 cm/s, phasicity: Monophasic. Superficial femoral artery (proximal): 62 cm/s, phasicity: Monophasic. Superficial femoral artery (mid): 59 cm/s, phasicity: Monophasic. Superficial femoral artery (distal): 69 cm/s, phasicity: Monophasic. Popliteal artery: 44 cm/s, phasicity: Monophasic. Posterior tibial artery: 45 cm/s, phasicity: Monophasic. Peroneal artery: 51 cm/s, phasicity: Monophasic. Anterior tibial artery: 41 cm/s, phasicity: Monophasic. Dorsalis pedis artery: 25 cm/s, phasicity: Monophasic. BRACHIAL PRESSURES: Right: 117 Left: 119 ANKLE PRESSURES: Right: PT 67, DP 70 Left: PT 64, DP 78 ANKLE-BRACHIAL INDEX: Right: 0.59 Left: 0.66. ANKLE PVR WAVEFORMS: Right: Abnormal. Left: Abnormal. 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 Occluded superficial femoral artery. Old. Left leg: Severe inflow disease throughout the interrogated vessels. MAI Reference: - >1.4 = calcified vessels - 0.9 - 1.4 = normal - no significant arterial disease - 0.7 - 0.89 = mild peripheral arterial disease - 0.51 - 0.69 = moderate peripheral arterial disease - d 0.50 = severe peripheral arterial disease - < .30 = critical arterial disease Electronically signed by: Madan Tijerina MD 11/06/2024 02:07 PM EDT
--- OUTSIDE RECORDS SUMMARY | 2024-11-06 15:09 | XMS_ITS | Encounter Summary ---
Author Organization [employer] Address 75 [facility] 7t [place] [address] Care Team Providers Care Flask Handler Name Role Phone Mackenzie Estrada MD Primary Care Provider [phone] Reason for Visit * Reason Comments Med Refill Encounter Details Date Type Department Care Team ([facility] st Contact Info) Description 02/08/2023 Refill [facility] MEDICINE 230 [place] [address] Mackenzie Estrada MD 230 [place] [address] Pain in both hands Social History Tobacco [...] Care Team (Late st Contact Info) Description 12/11/2024 9:45 AM EDT Office Visit [address] [address] 12/28/2024 9:45 AM EDT Office Visit [address] [phone] Mackenzie Estrada MD [address] [place] [address] documented as of this encounter Visit Diagnoses Diagnosis Pain in both hands documented in this encounter Care Teams Flask Handler Relationship Specialty Start Date End Date Mackenzie Estrada MD [address] [place] [address] PCP - General Family Medicine 07/10/20 documented as of this encounter
--- OUTSIDE RECORDS SUMMARY | 2024-11-06 15:09 | XMS_ITS | Encounter Summary ---
Author Organization [employer] Address 75 [facility] 7t [place] [address] Care Team Providers Care Food Sanitarian Name Role Phone Mackenzie Estrada MD Primary Care Provider [phone] Reason for Visit * Reason Comments Med Refill Encounter Details Date Type Department Care Team ([facility] st Contact Info) Description 11/18/2023 Refill [facility] MEDICINE 230 [place], [place] [phone] Mackenzie Estrada MD 230 [place], [place] [phone] Pain in both hands Social History Tobacco [...] Description 12/11/2024 9:45 AM EDT Office Visit [address] [address] 12/28/2024 9:45 AM EDT Office Visit [address] [address] Mackenzie Estrada MD [address] [place] [address] documented as of this encounter Goals Goal Patient Goal Type Associated Problems Recent Progress Patient-Stated? Author Quit using tobacco (cigarettes, smokeless, etc) Tobacco Use No Corey Lin, PharmD documented as of this encounter Visit Diagnoses Diagnosis Pain in both hands documented in this encounter Care Teams Food Sanitarian Relationship Specialty Start Date End Date Mackenzie Estrada MD [address] [place] [address] PCP - General Family Medicine 07/10/20 documented as of this encounter
--- OUTSIDE RECORDS SUMMARY | 2024-11-06 15:09 | XMS_ITS | Clinical Summary ---
Author Organization [facility] Address [address] [place] [address] Care Team Providers Care Security Strategist Name Role Phone Sanjay Cruz MD Primary Care [facility] Surgical History Surgery Date Site/Laterality Comments OTHER SURGICAL HISTORY 05/12/2020 Right PROCEDURE: [place] BX/EXC LYMPH NODE OPEN SUPERFICIAL; COMMENT: Axillary Lymph Node biopsy- Benign Lymphoid Tissue OTHER SURGICAL HISTORY 12/19/2019 Right PROCEDURE: MN BX/EXC LYMPH NODE NEEDLE SUPERFICIAL; COMMENT: Axillary Lymph node -results were non daignostic Medical History Medical History Date Comments Anxiety DX:Anxiety Migraine DX:Migraine History of DVT (deep vein thrombosis) 05/23/2020 DX:History of DVT (deep vein thrombosis); COMMENT: 01/2005 Right Subclavain medical terminologist current use of anticoagulant 0 DX:medical terminologist current use of anticoagulant Acute deep vein thrombosis ( DVT) of brachial vein of right upper extremity 05/09/2020 DX:Acute deep v ein thrombosis (DVT) of brachial vein of right [...] Vaccine (2023-2 5 season) 2024 Influenza Vaccine (Season Ended) 2025 HIB Vaccines Aged Out No longer eligi [...] age to complete this topic Meningococcal B Vaccine Aged Out No l onger eligible based on patient's age to complete [...] age to complete this topic Care Teams Security Strategist Relationship Specialty Start Date End Date Soham-Sanjay Espana MD [address] [place] [phone] PCP - General Internal Medicine 04/09/20
--- OUTSIDE RECORDS SUMMARY | 2024-11-06 15:09 | XMS_ITS | Encounter Summary ---
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 [...] the past 12 months, has t he Athlete Builder, gas, oil or water [employer] threatened to shut off services in your [...] Description 12/11/2024 9:45 AM EDT Office Visit [facility] MED[facility] [address] [place] [address] 12/28/2024 9:45 AM EDT Office Visit [facility] [address] [place] [address] Mackenzie Estrada MD [address] [place] [address] documented as of this encounter Goals Goal [...] documented as of this encounter Care Teams Yarder Boss Relationship Specialty Start Date End Date Mackenzie Estrada MD 230 [place] [address] PCP - General Family Medicine 07/10/20 documented as of this encounter
--- OUTSIDE RECORDS SUMMARY | 2024-11-06 15:09 | XMS_ITS | Encounter Summary ---
Author Organization [employer] Address 75 [facility] 7t [place] [address] Care Team Providers Care Oil Well Fishing Tool Technician Name Role Phone Mackenzie Estrada MD Primary Care Provider Reason for Visit * Reason Comments Med Refill Encounter Details Date Type Department Care Team ([facility] Contact Info) Description 08/19/2024 Refill [facility] MEDICINE 230 [place], [place] [phone] Mackenzie Estrada MD 230 [place], [place] [phone] Social History Tobacco Use Types Packs/Day Years [...] Description 12/11/2024 9:45 AM EDT Office Visit [facility] MEDICINE [address] [place] [address] 12/28/2024 9:45 AM EDT Office Visit [address] [address] Mackenzie Estrada MD [address] [place] [address] documented as of this encounter Goals Goal [...] documented as of this encounter Care Teams Oil Well Fishing Tool Technician Relationship Specialty Start Date End Date Mackenzie sEtrada MD [address] [place] [address] PCP - General Family Medicine 07/10/20 documented as of this encounter
--- OUTSIDE RECORDS SUMMARY | 2024-11-06 15:09 | XMS_ITS | Encounter Summary ---
Author Organization [facility] Address [address] [facility] 7t [place] [address] Care Team Providers Care Diversified Crops Supervisor Name Role Phone Mackenzie Estrada MD Primary Care Provider [phone] Reason for Referral * Imaging (Routine) - Closed Specialty Diagnoses / Procedures Referred By Contac t Referred To Contact Radiology Diagnoses Abnormal ultrasound of pelvis Procedures MR Pelvis w/ and w/o Contrast Mackenzie Estrada MD [address] [place] [address] Phone: tel: fax: [address] Phone: tel: fax: Referral ID Status Reason Start Date Expiration Date Visits Re quested Visits Authorized [id number] Closed 10/31/2023 10/30/2024 1 1 Encounter Details Date Type Department Care Team (Late st Contact Info) Description 10/31/2023 Orders Only [facility] [address] [place], [place] [phone] Mackenzie Estrada MD [address] [place], [place] [phone] Abnormal ultrasound of pelvis (Primary Dx) Social [...] which I need to talk to her occupational medicine specialist about. Thank you! documented in this encounter Plan of Treatment Upcoming Encounters Date Type Department Care Team (Late st Contact Info) Description 12/11/2024 9:45 AM EDT Office Visit [facility] [address] [place] [address] 12/28/2024 9:45 AM EDT Office Visit [facility] [address] [place] [address] Mackenzie Estrada MD [address] [place] [address] documented as of this encounter Goals Goal [...] EDT Narrative 12/07/2023 9:11 AM EDT ? [facility] ?[address] ?[place] [address] ? Magnetic Resonance Report ? Signed ? Patient: Ginette Arceo ?MR ?? #: [id number] ? : 1975 ?Acct:[id number] ? Age/Sex: 48 / F ?ADM Date: 11/25/23 ? Loc: HO.MRI ? Attending Dr: Mackenzei Estrada MD ? Ordering Physician: Mackenzie Estrada ?? Date of Service: 11/25/23 ?? Procedure(s): MR pelvis wo/w con ?? Accession Number(s): [id number] ? cc: Mackenzie Estrada ? EXAMINATION: ?? [...] 7.8 x 3.6 ?? x 4.3 cm (gtfulw-fk-tekusx x AP x transverse dimension). The junctional [...] 12/07/23906 ? DD/ 1505 ? TD/TT: ? Garnett Mechanic: PD ? Procedure Note Donotuseinterpreter, Image - 12/07/[address] [address] Magnetic Resonance Report Signed Patient: Ginette ArceoMR #: [id number] : 1975Acct:[id number] Age/Sex: 48 / FADM Date: 11/25/23 Loc: HO.MRI Attending Dr: Mackenzie Estrada MD Ordering Physician: aMckenzie Estrada Date of Service: 11/25/23 Procedure(s): MR pelvis wo/w con Accession Number(s): [id number] cc: Mackenzie Estrada EXAMINATION: MR PELVIS WITHOUT [...] measures 7.8 x 3.6 x 4.3 cm (kbdkkf-jg-okvafo x AP x transverse dimension). The junctional [...] in OV> 12/07/23 0907 DD/ 1505 TD/TT: Garnett Mechanic: PD Mackenzie Estrada MD IMG MRI PROCEDURES Final Resul t documented in this encounter Visit Diagnoses Diagnosis Abnormal ultrasound of pelvis- Primary documented in this encounter Care Teams Diversified Crops Supervisor Relationship Specialty Start Date End Date Mackenzie Estrada MD [address] [place] [address] PCP - General Family Medicine 07/10/20 documented as of this encounter
--- OUTSIDE RECORDS SUMMARY | 2024-11-06 15:09 | XMS_ITS | Encounter Summary ---
Author Organization [employer] Address [address] [facility] [address] 7t [place] [address] Care Team Providers Care Counseling Services Director Name Role Phone Mackenzie Estrada MD Primary Care Provider [phone] Encounter Details Date Type Department Care Team (Late st Contact Info) Description 12/13/2023 Orders Only [facility] [address] [place], [place] [phone] Mackenzie Estrada MD [address] [place], [place] [phone] Pain in both hands Social History Tobacco [...] Description 12/11/2024 9:45 AM EDT Office Visit [address] [address] 12/28/2024 9:45 AM EDT Office Visit [address] [address] Mackenzie Estrada MD [address] [place] [address] documented as of this encounter Goals Goal Patient Goal Type Associated Problems Recent Progress Patient-Stated? Author Quit using tobacco (cigarettes, smokeless, etc) Tobacco Use No Corey Lin, Bailey documented as of this encounter Visit Diagnoses Diagnosis Pain in both hands documented in this encounter Care Teams Counseling Services Director Relationship Specialty Start Date End Date Mackenzie Estrada MD [address] [place] [address] PCP - General Family Medicine 07/10/20 documented as of this encounter
--- OUTSIDE RECORDS SUMMARY | 2024-11-06 15:09 | XMS_ITS | Encounter Summary ---
Author Organization [employer] [facility] Address [address] [facility] 7t [place] [address] Care Team Providers Care Technical Expert Name Role Phone Mackenzie Estrada MD Primary Care Provider [phone] Encounter Details Date Type Department Care Team ([facility] Contact Info) Description 03/04/2023 Orders Only [facility] [address] [place] [address] Kat Yo MD [address] [place] [address] [phone] Social History Tobacco Use Types Packs/Day Years [...] [facility] Contact Info) Description 12/11/2024 9:45 AM EDT Office Visit [facility] [address] [place] [phone] 12/28/2024 9:45 AM EDT Office Visit [facility] [address] [place] [address] Mackenzie Estrada MD [address] [place] [address] [phone] documented as of this encounter Visit Diagnoses Not on filedocumented in this encounter Care Teams Technical Expert Relationship Specialty Start Date End Date Mackenzie Estrada MD [address] [place] [address] PCP - General Family Medicine 07/10/20 documented as of this encounter
--- OUTSIDE RECORDS SUMMARY | 2024-11-06 15:09 | XMS_ITS | Encounter Summary ---
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 [...] the past 12 months, has t he [employer], gas, oil or water company threatened to [...] Description 12/11/2024 9:45 AM EDT Office Visit [facility] [address] [place] [address] 12/28/2024 9:45 AM EDT Office Visit [facility] [address] [place] [address] Mackenzie Estrada MD [address] [place] [address] documented as of this encounter Goals Goal [...] documented as of this encounter Care Teams Gas Producer Relationship Specialty Start Date End Date Mackenzie Estrada MD [address] [place] [address] PCP - General Family Medicine 07/10/20 documented as of this encounter
--- OUTSIDE RECORDS SUMMARY | 2024-11-06 15:09 | XMS_ITS | Encounter Summary ---
Author Organization [employer] [facility] Address 75 [facility] 7t [place] [address] Care Team Providers Care Laborer Cook House Name Role Phone Mackenzie Estrada MD Primary Care Provider [phone] Reason for Visit * Reason Comments Med Refill Encounter Details Date Type Department Care Team ([facility] Contact Info) Description 12/10/2022 Refill [facility] [address] [place] [address] Mackenzie Estrada MD [address] [place], [place] [phone] Pain in both hands Social History Tobacco [...] Upcoming Encounters Date Type Department Care Team ([facility] Contact Info) Description 12/11/2024 9:45 AM EDT Office Visit [facility] [address] [place] [address] 12/28/2024 9:45 AM EDT Office Visit [facility] [address] [place] [address] Mackenzie Estrada MD [address] [place], [place] [phone] documented as of this encounter Visit Diagnoses Diagnosis Pain in both hands documented in this encounter Care Teams Laborer Cook House Relationship Specialty Start Date End Date Mackenzie Estrada MD [address] [place] [address] PCP - General Family Medicine 07/10/20 documented as of this encounter
--- OUTSIDE RECORDS SUMMARY | 2024-11-06 15:10 | XMS_ITS | Encounter Summary ---
Author Organization [employer] Address [address] [facility] [address] 7t [place] [address] Care Team Providers Care China Painter Name Role Phone Mackenzie Estrada MD Primary Care Provider [phone] Encounter Details Date Type Department Care Team (Late st Contact Info) Description 06/01/2023 Orders Only [facility] [address] [place], [place] [phone] Mackenzie Estrada MD 230 [place] [address] Encounter for smoking cessation counseling (Primary Dx) [...] Description 12/11/2024 9:45 AM EDT Office Visit [address] [address] 12/28/2024 9:45 AM EDT Office Visit [address] [address] Mackenzie Estrada MD [address] [place] [address] documented as of this encounter Goals Goal Patient Goal Type Associated Problems Recent Progress Patient-Stated? Author Quit using tobacco (cigarettes, smokeless, etc) Tobacco Use No Corey Lin, PharmD documented as of this encounter Visit Diagnoses Diagnosis Encounter for smoking cessation counseling- Primary documented in this encounter Care Teams China Painter Relationship Specialty Start Date End Date Mackenzie Estrada MD [address] [place] [address] PCP - General Family Medicine 07/10/20 documented as of this encounter
--- OUTSIDE RECORDS SUMMARY | 2024-11-06 15:10 | XMS_ITS | Encounter Summary ---
Author Organization [employer] Address [address] [facility] 7t [place] [address] Care Team Providers Care Art Dealer Name Role Phone Mackenzie Estrada MD Primary Care Provider [phone] Reason for Visit * Reason Comments Med Refill Encounter Details Date Type Department Care Team ([facility] Contact Info) Description 11/02/2024 Refill [facility] 230 [place], [place] [phone] Mackenzie Estrada MD [address] [place], [place] [phone] Social History Tobacco Use Types Packs/Day Years [...] Description 12/11/2024 9:45 AM EDT Office Visit [facility] [address] [place] [address] 12/28/2024 9:45 AM EDT Office Visit [facility] [address] [place] [address] Mackenzie Estrada MD [address] [place] [address] documented as of this encounter Goals Goal [...] documented as of this encounter Care Teams Art Dealer Relationship Specialty Start Date End Date Mackenzie Estrada MD [address] [place] [address] PCP - General Family Medicine 07/10/20 documented as of this encounter
--- OUTSIDE RECORDS SUMMARY | 2024-11-06 15:10 | XMS_ITS | Encounter Summary ---
Author Organization [facility] Address [address] [facility] 7t [place] [address] Care Team Providers Care Used Car Make Ready Worker Name Role Phone Mackenzie Estrada MD Primary Care Provider [phone] Reason for Visit * Reason Onset Date Comments Nicotine Dependence 11/01/2024 Supports off ered- [facility] smoking awareness group, meds Encounter Details Date Type Department Care Team ([facility] Contact Info) Description 11/01/2024 Telephone [facility]INE 230 [place], [place] [phone] Mackenzie Estrada MD [address] [place], [place] [phone] Nicotine Dependence (Supports offered- [facility] smoking awareness group, meds) Social History Tobacco Use Types Packs/Day Years [...] t he electric, gas, oil or water [employer] threatened to shut off services in your [...] encounter Miscellaneous Notes * Telephone Encounter - Tammy Burt RN - 11/02/2024 11:22 AM EDT TC placed to patient [phone] regarding below message. Pt advised RN that she has stopped smoking tobacco. Pt denies any complaints at this time. Sending message to PCP about smoking status. Pt to F/U PRN. * Telephone Encounter - Lucia Hyde RN - 11/01/2024 12:50 PM EDT TC placed to patient [phone] in regards to below message however patient did not answer, RN left VM requesting CB to red team nurses. RN will re-attempt in PM. * Telephone Encounter - Mackenzie Estrada MD - 11/01/2024 10:39 AM EDT Please let patient know that the options for her rheumatoid arthritis treatments are running low. She should make every effort to keep abstinent for tobacco and avoid it from family members as well. There is [facility] smoking awareness group and I can prescribe meds to help keep her away from tobacco/marijuana smoke if she needs it. Please let me know if she needs any more info or support to stay off cigarettes documented in this encounter Plan of Treatment Upcoming Encounters Date Type Department Care Team (Late st Contact Info) Description 12/11/2024 9:45 AM EDT Office Visit [facility] [address] [place] [address] 12/28/2024 9:45 AM EDT Office Visit [address] [address] Mackenzie Estrada MD [address] [place] [address] documented as of this encounter Goals Goal Patient Goal Type Associated Problems Recent Progress Patient-Stated? Author Quit using tobacco (cigarettes, smokeless, etc) Tobacco Use Corey Cornell, PharmD documented as of this encounter Visit Diagnoses Not on filedocumented in this encounter Additional Health Concerns Assessment Noted Time PHQ-9 Depression Total Score: 2 04/30/20 24 10:41 AM EDT documented as of this encounter Care Teams Used Car Make Ready Worker Relationship Specialty Start Date End Date Mackenzie Estrada MD [address] [place] [address] PCP - General Family Medicine 07/10/20 documented as of this encounter
--- OUTSIDE RECORDS SUMMARY | 2024-11-06 15:10 | XMS_ITS | Encounter Summary ---
Author Organization [employer] Address [address] [facility] [address] 7t [place] [address] Care Team Providers Care Casting Tester Name Role Phone Mackenzie Estrada MD Primary Care Provider [phone] Encounter Details Date Type Department Care Team (Late st Contact Info) Description 04/20/2024 Telephone [facility]INE [address] [place], [place] [phone] Mackenzie Estrada MD [address] [place], [place] [phone] Social History Tobacco Use Types Packs/Day Years [...] Description 12/11/2024 9:45 AM EDT Office Visit [address] [address] 12/28/2024 9:45 AM EDT Office Visit [address] [address] Mackenzie Estrada MD [address] [place] [address] documented as of this encounter Goals Goal Patient Goal Type Associated Problems Recent Progress Patient-Stated? Author Quit using tobacco (cigarettes, smokeless, etc) Tobacco Use No Corey Lin, PharmD documented as of this encounter Visit Diagnoses Not on filedocumented in this encounter Care Teams Casting Tester Relationship Specialty Start Date End Date Mackenzie Estrada MD [address] [place] [address] PCP - General Family Medicine 07/10/20 documented as of this encounter
--- OUTSIDE RECORDS SUMMARY | 2024-11-06 15:10 | XMS_ITS | Clinical Summary ---
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 12/11/19 23 Active beta carotene (vitamin A) 3 MG (78916 UT) capsule Take by mouth in the morning. 12/22/19 Active albuterol (Ventolin HFA) 108 (90 Base) MCG/ACT inhalerIndicat ions:Viral upper respiratory tract infection INHALE 2 PUFFS [...] MOUTH EVERY WEEK 02/24/20 24 Active Umeclidinium [place] (Incruse Ellipta) 62.5 MCG/ACT aerosol powderIndicati ons:Subacute cough INHALE 1 PUFF BY MOUTH EVERY DAY AT THE SAME TIME 1 each 04/23/20 24 Active FeroSul 325 (65 Fe) MG tablet TAKE 1 TABLET BY MOUTH EVERY MORNING 90 tablet 3 04/30/20 24 Active nitroglycerin (Nitrostat) 0.4 MG SL [...] 09/18/19 25 Active famotidine (Pepcid) 20 MG tabletIndicati ons:Gastroesop hageal reflux disease with hiatal hernia TAKE 1 TABLET BY MOUTH TWICE DAILY AT NOON AND IN THE EVENING 180 tablet 3 09/25/19 25 Active clopidogrel (Plavix) 75 MG tabletIndicati ons:NSTEMI (non-ST elevated myocardial infarction) ([facility]) Take 1 tablet (75 mg) by mouth Once per day. 90 tablet 3 09/28/19 25 026 Active oxyCODONE-acet aminophen (Percocet) 7.5-325 MG tabletIndicati ons:Osteonecro sis of hip with collapse of femoral head present on x-ray ([facility]) Take 1 tablet by mouth every 6 (six) hours if needed for severe pain for up to 28 days. Do not start before October 17, 2024. 112 tablet 10/18/19 25 025 Active apixaban (Eliquis) 5 MG tablet TAKE 1 TABLET BY MOUTH TWICE DAILY IN THE MORNING AND IN THE EVENING 60 tablet 3 11/03/19 25 Active Diclofenac Sodium 1 % gelIndications :Chronic low back pain, unspecified back pain laterality, unspecified whether sciatica present apply 2 gram by topical route 4 times every day as needed for hand pain 50 g 2 11/07/19 25 Active neomycin-polym yxin-hydrocort isone (Cortisporin) 3.5-07368-0 otic suspensionIndi cations:Acute otitis externa of both ears, unspecified type Administer 3-4 drops into affected ear(s) 4 times daily for 7 days. 10 mL 11/07/19 25 025 Active doxycycline (Vibra-Tabs) 100 MG tabletIndicati ons:Cellulitis of upper extremity, unspecified laterality Take 1 tablet (100 mg) by mouth 2 times daily for 7 days. Take with a full glass of water and do not lie down for at least 30 minutes after. 14 tablet 11/07/19 25 025 Active cephalexin (Keflex) 500 MG capsuleIndicat ions:Celluliti s of upper extremity, unspecified laterality Take 1 capsule (500 mg) by mouth 4 times daily for 7 days. 28 capsule 11/07/19 25 025 Active predniSONE (Deltasone) 50 MG tabletIndicati ons: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 (CMS/HCC),Infl ammatory arthritis Take 1 tablet (50 mg) by mouth Once per day for 5 days. 5 tablet 01/26/20 24 025 Discontinued(Re order (will not trigger notification to Pharmacy)) Eliquis 5 MG tablet TAKE 1 TABLET BY MOUTH TWICE DAILY IN THE MORNING AND IN THE EVENING 180 tablet 1 05/30/20 24 025 Discontinued oxyCODONE-acet aminophen (Percocet) 7.5-325 MG tabletIndicati ons:Osteonecro sis of hip with collapse of femoral head present on x-ray (CMS/HCC) Take 1 tablet by mouth every 8 (eight) hours if needed for severe pain for up to 28 days. 84 tablet 09/19/19 25 025 Discontinued Diclofenac Sodium 1 % gelIndications :Chronic low back pain, unspecified back pain laterality, unspecified whether sciatica present apply 2 gram by topical route 4 times every day as needed for hand pain 50 g 2 09/28/19 25 025 Discontinued(Re order (will not trigger notification to Pharmacy)) mupirocin (Bactroban) 2 % ointmentIndica tions:Rheumato id arthritis involving multiple sites with positive rheumatoid factor (CMS/HCC) Apply topically 3 times daily for 10 days. 22 g 09/28/19 25 025 predniSONE (Deltasone) 50 MG tabletIndicati ons:Rheumatoid arthritis flare (CMS/HCC),Rheu matoid arthritis involving right hand with positive rheumatoid factor (CMS/HCC),Infl ammatory arthritis Take 1 tablet (50 mg) by mouth Once per day for 5 days. 5 tablet 10/10/19 25 025 Active Problems Problem Noted Date Diagnosed Date Long-term current use of opiate analgesic 2024 Overview (09/28/2024): Medication: Percocet 7.5/325mg, increasing to every 6 hours prn at 09/2024 refill Indication: Rheumatoid arthritis Last [employer]ECTIVE [employer]OTHING ISSUER Agreement: 06/12/24 Tier: II (Q3 months visits), Dr. 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 Castro Assessment & Plan (01/26/2024 [...] to go back to her previous dose, PR[employer]ECT[employer]OTHING ISSUER nurse informed about my plan, I instructed [...] week as per Rheumatology. 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 0 Personal history of Hodgkin lymphoma 05/09/2020 Axillary lymphadenopathy 05/09/2020 Acute deep vein thrombosis ( DVT) of brachial vein of right upper extremity 03/07/2020 Lymphadenopathy, generalized 03/07/2020 Migraine without status migrainosus, not intract able 12/06/2017 Paresthesia and pain of left extremity 8 Gastroesophageal reflux disease 06/03/2017 Rheumatoid arthritis involving multiple sites Overview (09/11/2024): - Following with [facility] Rheumatoloy Assessment & Plan (11/06/2024 1:48 PM EDT): -Good engagement and participation with Group Medical Visit model -Encouraged multifactorial approach to pain control including pharm and non- pharm modalities -UTOX and Pill count as expected Assessment & Plan (09/28/2024 8:20 AM EST): [...] PM EDT): Primarily managed by Rheum at [facility] Continue to take Oulimiant 2mg, Methotrexate 20mg [...] Encounters Date Type Department Care Team Description 11/06/2024 9:45 AM EDT Office Visit [facility] MEDICINE [address] [place] [address] [phone] Sisi Kennedy FNP Rheumatoid arthritis involving multiple sites with positive rheumatoid factor (CMS/HCC) (Primary Dx); Long-term current use of opiate analgesic; Chronic low back pain, unspecified back pain laterality, unspecified whether sciatica present; Cellulitis of upper extremity, unspecified laterality; Acute otitis externa of both ears, unspecified type 11/06/2024 Orders Only [facility] External Provider, [facility] 11/06/2024 Travel 11/02/2024 Refill [facility] [address], [place] [phone] Mackenzie Estrada MD 11/01/2024 Telephone [facility] [address] [place] [address] Mackenzie Estrada MD Nicotine Dependence (Supports offered- [facility] smoking awareness group, meds) 10/24/2024 Telephone [facility] [address] [place] [phone] Mackenzie Estrada MD Nurse Triage 10/15/2024 Refill [facility] [address] [place] [phone] Mackenzie Estrada MD 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 (CMS/HCC) 10/12/2024 Population Health Risk Score [facility] ([facility] Department [address] [place] [phone] Provider, Population Health Generic 10/11/2024 1:00 PM EDT Office Visit [facility] OPTOMETRY [address] [place] [phone] Kailash, Libra, OD Chorioretinal scar, left (Primary Dx); White without pressure of peripheral retina of both eyes; Generalized headaches; MGD (meibomian gland dysfunction); Early cataracts, bilateral; Presbyopia of both eyes 10/11/2024 Travel 10/10/2024 Refill [facility] [address] [place] [phone] Kat Yo MD 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 ([facility]/HCC); Inflammatory arthritis 10/10/2024 Refill [facility] [address] [place] [address] Mackenzie Estrada MD 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 ([facility]/HCC) 10/09/2024 11:20 AM EDT Office Visit [facility] [address] [place] [phone] Kat Yo MD Rheumatoid arthritis flare ([facility]/HCC) (Primary Dx); 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 (CMS/HCC); Inflammatory arthritis 10/02/2024 Telephone [facility] [address] [place], [place] [phone] Mackenzie Estrada MD 10/01/2024 Telephone [facility] OPTOMETRY [address] [place] [phone] Libra Linder, OD 09/24/2024 3:15 PM EST Office Visit [facility] [address] [place] [address] Mackenzie Estrada MD Rheumatoid arthritis involving multiple sites with positive rheumatoid factor ([facility]) (Primary Dx); Dietary counseling; Exercise counseling; Class 1 obesity with serious comorbidity and body mass index (BMI) of 33.0 to 33.9 in adult, unspecified obesity type; Nodular sclerosis Hodgkin lymphoma of lymph nodes of multiple regions ([facility]); NSTEMI (non-ST elevated myocardial infarction) ([facility]); 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 ([facility]); Class 1 obesity; Chronic low back pain, unspecified back pain laterality, unspecified whether sciatica present; Long-term current use of opiate analgesic; Screening mammogram for breast cancer 09/24/2024 Travel 09/24/2024 Refill [facility] [address] [place] [address] Mackenzie Estrada MD Gastroesophageal reflux disease with hiatal hernia 09/19/2024 Refill [facility] [address] [place] [address] Kaylene Samano RN 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 ([facility]) 09/18/2024 Refill [facility] [address] [place], [place] [phone] Mackenzie Estrada MD 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 ([facility]) 09/17/2024 Refill [facility] [address] [place] [address] Mackenzie Estrada MD 09/14/2024 Orders Only [facility] External Provider, [facility] 09/11/2024 9:45 AM EST Office Visit [facility] [address] [place] [address] Sisi Kennedy FNP Rheumatoid arthritis involving multiple sites with positive rheumatoid factor ([facility]) (Primary Dx); Long-term current use of opiate analgesic 09/11/2024 Travel 09/10/2024 Patient Outreach [facility] [address] [place] [address] Mackenzie Estrada MD Care Coordination (CHW outreach for SDOH PT-1 and food needs-referral completed /) 09/10/2024 Patient Outreach [facility] [address] [place] [phone] Mackenzie Estrada MD Pre-visit Planning (SDOH screening negative and tobacco screening negative) 09/07/2024 Refill [facility] [address] [place] [address] Mackenzie Estrada MD 08/22/2024 Refill [facility] [address] [place] [phone] Mackenzie Estrada MD 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 ([facility]) 08/19/2024 Refill [facility] [address] [place] [phone] Mackenzie Estrada MD 08/16/[address] [address] Hanny Lacy [place] Appointment Request 08/15/2024 Telephone [facility] [address] [place], [place] [phone] Mackenzie Estrada MD Durable Medical Equipment (10 In 1 pillow ) 08/14/2024 9:45 AM EST Office Visit [address] [address] Sisi Kennedy FNP Long-term current use of opiate analgesic (Primary Dx); 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 ([facility]); Inflammatory arthritis 08/14/2024 Travel from Last 3 Months Immunizations Name Administration [...] Description 12/11/2024 9:45 AM EDT Office Visit [facility] [address] [place] [phone] 12/28/2024 9:45 AM EDT Office Visit [facility] [address] [place] [phone] Mackenzie Estrada MD [address] [place] [phone] Health Maintenance Due Date Last Done Comments [...] Family Planning (PISQ) 09/28/2025 09/28/2024 Tobacco Screening 10/24/2025 10/24/2024 Lipid Panel 09/14/2026 09/14/2021 DTaP/Tdap/Td Vaccines (2 [...] Procedure Name Priority Date/Time Associated Diagnosis Comments VASC US LOWER EXTREMITY ARTERIAL DUPLEX BILATERAL WITH SUGAR Routine 11/06/2024 1:05 PM EDT POCT GALLO-14 URINE DRUG SCREEN Routine 11/06/2024 10:46 AM EDT Rheumatoid arthritis involving multiple sites with positive rheumatoid factor (CMS/HCC) Long-term current use of opiate analgesic XR ELBOW 3+ VIEWS LEFT Routine 8:07 AM EST XR SCAPULA LEFT Routine 09/15/2024 8:04 AM EST XR HUMERUS LEFT Routine 09/15/2024 8:00 AM EST POCT GALLO-14 URINE DRUG SCREEN Routine 09/11/2024 2:01 PM EST Long-term current use of opiate analgesic POCT GALLO-14 URINE DRUG SCREEN Routine 08/14/2024 1:47 PM EST Long-term current use of opiate analgesic HEPATITIS C ANTIBODY Routine 04/11/2024 10:26 AM [...] Recently Relevant to Health Maintenance Results * VASC US Lower Extremity Arterial Duplex Bilateral With Sugar (11/06/2024 1:05 PM EDT) 11/06/2024 1:05 PM EDT Narrative [facility] - 11/06/2024 2:10 PM EDT ? [facility] ?[address] ?[place] [address] ? Ultrasound Report ? Signed ? Patient: Ginette Arceo ?MR ?? #: [id number] ? : 1975 ?Acct:[id number] ? Age/Sex: 49 / F ?ADM Date: 11/06/24 ? Loc: HO.US ? Attending Dr: Frankie Hughes MD ? Ordering Physician: Frankie Hughes MD ?? Date of Service: 11/06/24 ?? Procedure(s): US arterial duplex BI w/ SUGAR ?? Accession Number(s): [id number] ? cc: Mackenzie Estrada; Frankie Hughes MD ? EXAMINATION: ?? Noninvasive assessment of the bilateral lower extremities with ARTERIAL ?? DUPLEX, ANKLE BRACHIAL INDICES (ABIs), and PULSE VOLUME RECORDINGS ?? (PVRs). ? CLINICAL INFORMATION: ?? Occlusion superficial femoral artery. ? TECHNIQUE: ?? Duplex Doppler techniques with waveform analysis and measurement of ?? velocities in the bilateral common femoral, profunda femoris, ?? superficial femoral, popliteal and tibial arteries were performed. ? Additionally, ankle pulse volume recordings, ankle pressure ?? measurements and ankle brachial indices were obtained of the lower ?? extremity arterial system bilaterally. The study was performed only at ?? rest. ? COMPARISON: None ? FINDINGS: ? DIRECT DUPLEX DOPPLER FINDINGS: ? RIGHT LEG: ?? Common femoral artery: 116 cm/s, phasicity: Biphasic. ?? Profunda femoris artery: 85 cm/s, phasicity: Monophasic. ?? Superficial femoral artery (proximal): [Occluded. ?? Superficial femoral artery (mid): Occluded. ?? Superficial femoral artery (distal): Occluded. ?? Popliteal artery: 40 cm/s, phasicity: Monophasic. ?? Posterior tibial artery: 40 cm/s, phasicity: Monophasic. ?? Peroneal artery: 29 cm/s, phasicity: Monophasic. ?? Anterior tibial artery: 12 cm/s, phasicity: Monophasic. ?? Dorsalis pedis artery: 37 cm/s, phasicity:Monophasic. ? LEFT LEG: ?? Common femoral artery: 60 cm/s, phasicity: Monophasic. ?? Profunda femoris artery: 61 cm/s, phasicity: Monophasic. ?? Superficial femoral artery (proximal): 62 cm/s, phasicity: Monophasic. ?? Superficial femoral artery (mid): 59 cm/s, phasicity: Monophasic. ?? Superficial femoral artery (distal): 69 cm/s, phasicity: Monophasic. ?? Popliteal artery: 44 cm/s, phasicity: Monophasic. ?? Posterior tibial artery: 45 cm/s, phasicity: Monophasic. ?? Peroneal artery: 51 cm/s, phasicity: Monophasic. ?? Anterior tibial artery: 41 cm/s, phasicity: Monophasic. ?? Dorsalis pedis artery: 25 cm/s, phasicity: Monophasic. ? BRACHIAL PRESSURES: ? Right: 117 ? Left: 119 ? ANKLE PRESSURES: ? Right: PT 67, DP 70 ?? Left: PT 64, DP 78 ? ANKLE-BRACHIAL INDEX: ? Right: 0.59 ? Left: 0.66. ? ANKLE PVR WAVEFORMS: ? Right: Abnormal. ?? Left: Abnormal. ? US/US arterial duplex BI w/ SUGAR ?? IMPRESSION: ? Right leg: Severe inflow disease throughout the interrogated vessels. ?? Occluded superficial femoral artery. Old. ? Left leg: Severe inflow disease throughout the interrogated vessels. ? SUGAR Reference: ?? - >1.4 = calcified vessels ?? - 0.9 - 1.4 = normal - no significant arterial disease ?? - 0.7 - 0.89 = mild peripheral arterial disease ?? - 0.51 - 0.69 = moderate peripheral arterial disease ?? - d 0.50 = severe peripheral arterial disease ?? - < .30 = critical arterial disease ? Electronically signed by: ??Madan Tijerina MD ??11/06/2024 02:07 PM ?? EDT RP ? Dictated By: ?Madan Nye MD ? Signed By: ?<Electronically signed by Madan Rose MD in OV> ? 11/06/24 1407 ? DD/ 1305 ? TD/TT: 11/06/24 1352 ? Traffic Checker: ? Procedure Note Lorin, Image - 11/06/2024 [place] [address] Ultrasound Report Signed Patient: Ginette ArceoMR #: [id number] : 1975Acct:[id number] Age/Sex: 49 / FADM Date: 11/06/24 Loc: HO.US Attending Dr: Frankie Hughes MD Ordering Physician: Frankie Hughes MD Date of Service: 11/06/24 Procedure(s): US arterial duplex BI w/ SUGAR Accession Number(s): [id number] cc: Mackenzie Estrada; Frankie Hughes MD EXAMINATION: Noninvasive assessment of the bilateral lower extremities with ARTERIAL DUPLEX, ANKLE BRACHIAL INDICES (ABIs), and PULSE VOLUME RECORDINGS (PVRs). CLINICAL INFORMATION: Occlusion superficial femoral artery. TECHNIQUE: Duplex Doppler techniques with waveform analysis and measurement of velocities in the bilateral common femoral, profunda femoris, superficial femoral, popliteal and tibial arteries were performed. Additionally, ankle pulse volume recordings, ankle pressure measurements and ankle brachial indices were obtained of the lower extremity arterial system bilaterally. The study was performed only at rest. COMPARISON: None FINDINGS: DIRECT DUPLEX DOPPLER FINDINGS: RIGHT LEG: Common femoral artery: 116 cm/s, phasicity: Biphasic. Profunda femoris artery: 85 cm/s, phasicity: Monophasic. Superficial femoral artery (proximal): [Occluded. Superficial femoral artery (mid): Occluded. Superficial femoral artery (distal): Occluded. Popliteal artery: 40 cm/s, phasicity: Monophasic. Posterior tibial artery: 40 cm/s, phasicity: Monophasic. Peroneal artery: 29 cm/s, phasicity: Monophasic. Anterior tibial artery: 12 cm/s, phasicity: Monophasic. Dorsalis pedis artery: 37 cm/s, phasicity:Monophasic. LEFT LEG: Common femoral artery: 60 cm/s, phasicity: Monophasic. Profunda femoris artery: 61 cm/s, phasicity: Monophasic. Superficial femoral artery (proximal): 62 cm/s, phasicity: Monophasic. Superficial femoral artery (mid): 59 cm/s, phasicity: Monophasic. Superficial femoral artery (distal): 69 cm/s, phasicity: Monophasic. Popliteal artery: 44 cm/s, phasicity: Monophasic. Posterior tibial artery: 45 cm/s, phasicity: Monophasic. Peroneal artery: 51 cm/s, phasicity: Monophasic. Anterior tibial artery: 41 cm/s, phasicity: Monophasic. Dorsalis pedis artery: 25 cm/s, phasicity: Monophasic. BRACHIAL PRESSURES: Right: 117 Left: 119 ANKLE PRESSURES: Right: PT 67, DP 70 Left: PT 64, DP 78 ANKLE-BRACHIAL INDEX: Right: 0.59 Left: 0.66. ANKLE PVR WAVEFORMS: Right: Abnormal. Left: Abnormal. US/US arterial duplex BI w/ SUGAR IMPRESSION: Right leg: Severe inflow disease throughout the interrogated vessels. Occluded superficial femoral artery. Old. Left leg: Severe inflow disease throughout the interrogated vessels. SUGAR Reference: - >1.4 = calcified vessels - 0.9 - 1.4 = normal - no significant arterial disease - 0.7 - 0.89 = mild peripheral arterial disease - 0.51 - 0.69 = moderate peripheral arterial disease - d 0.50 = severe peripheral arterial disease - < .30 = critical arterial disease Electronically signed by: Madan Tijerina MD 11/06/2024 02:07 PM EDT Dictated By: Madan Nye MD Signed By: <Electronically signed by Madan Rose MDin OV> 11/06/24 1407 DD/ 1305 TD/TT: 11/06/24 1352 Traffic Checker: [facility] External Provider CV VASC ULAR PROCEDURES Final Result [facility] [address] [facility] [place] [address] * POCT GALLO-14 Urine Drug Screen (11/06/2024 10:46 AM EDT) Only the most recent of3 resultswithin the time period is included. THC Positive Oxycodone Screen, Urine Positive Urine Urine specimen obtained by clean catch procedure / Unknown 11/06/2024 10:46 AM EDT Narrative Coral Somers RN - 11/06/2024 10:46 AM EDT .UTOX cup Lot#[id number] Exp. 03/20/26 Internal Pass Control Sisi Kennedy SUPERVISOR CURING ROOM POINT OF CARE TEST ENTER/EDIT ORDERABLES Final Result * XR Elbow 3+ Views Left (09/15/2024 8:07 AM EST) Anatomical Region Laterality Modality Upper Extremities, Elbow Left Radiogr aphic Imaging 09/15/2024 8:07 AM EST Narrative 09/15/2024 8:09 AM EST ? [facility] ? [address] ?[place] [address] ?XRay Report ? Signed ? Patient: Ovidio Lacy,Ginette ?MR ?? #: [id number] ? : 1975 ?Acct:[id number] ? Age/Sex: 49 / F ?ADM Date: 02/14/25 ? Loc: HO.HOSX ? Attending : Madonna Melara MD ? Ordering Physician: Madonna Bonilla ?? Date of Service: 09/14/24 ?? Procedure(s): XR elbow LT min 3V ?? Accession Number(s): [id number] ? cc: Mackenzie Estrada; Madonna Bonilla ? [...] MD in OV> ?09/15/24 0808 ? DD/ 08 ? TD/TT: 09/15/24 08 ? Traffic Checker: ? Procedure Note Doncandidabhumiter, Image - 09/15/2024 [facility] [address] [place] [address] [address] [place] [address] XRay Report Signed Patient: Ginette ArceoMR #: [id number] : 1975Acct:[id number] Age/Sex: 49 / FADM Date: 09/14/24 Loc: TAMARA Attending Dr: Madonna Melara MD Ordering Physician: Madonna Bonilla Date of Service: 09/14/24 Procedure(s): XR elbow LT min 3V Accession Number(s): [id number] cc: Mackenzie Estrada; Madonna Bonilla CLINICAL HISTORY: [...] in OV> 09/15/24807 DD/ 6 TD/TT: 09/15/24806 Traffic Checker: [facility] External Provider IMG XR PROCEDURES Edited Result - Final * XR Scapula Left (09/15/2024 8:04 AM EST) Anatomical Region Laterality Modality Body, Scapula Left Radiographic Rin ging 09/15/2024 8:04 AM EST Narrative 09/15/2024 8:06 AM EST ? [facility] ? [address] ?[place], [place] [address] ?XRay Report ? Signed ? Patient: Ovidio Lacy,Ginette ?MR ?? #: [id number] ? : 1975 ?Acct:[id number] ? Age/Sex: 49 / F ?ADM Date: 09/14/24 ? Loc: HO.HOSX ? Attending Dr: Madonna Melara MD ? Ordering Physician: Madonna Bonilla ?? Date of Service: 09/14/24 ?? Procedure(s): XR scapula LT ?? Accession Number(s): [id number] ? cc: Mackenzie Estrada; Madonna Bonilla ? [...] signed by Arturo Woodson MD in OV> ?09/15/24804 ? DD/ 3 ? TD/TT: 09/15/24803 ? Traffic Checker: ? Procedure Note Deepa Padgett - 09/15/2024 [facility] [address] [place] [address] [address] [place] [address] XRay Report Signed Patient: Ginette ArceoMR #: [id number] : 1975Acct:[id number] Age/Sex: 49 / FADM Date: 09/14/24 Loc: TAMARA Attending Dr: Madonna Melara MD Ordering Physician: Madonna Bonilla Date of Service: 09/14/24 Procedure(s): XR rajendra LT Accession Number(s): [id number] cc: Mackenzie Estrada; Madonna Bonilla CLINICAL HISTORY: [...] in OV> 09/15/24804 DD/ 3 TD/TT: 09/15/24803 Traffic Checker: [facility] External Provider IMG XR PROCEDURES Edited Result - Final * XR Humerus Left (09/15/2024 8:00 AM EST) Anatomical Region Laterality Modality Upper Extremities, Humerus Left Radio graphic Imaging 09/15/2024 8:00 AM EST Narrative 09/15/2024 8:02 AM EST ? [facility] ? [address] ?[place] [address] ?XRay Report ? Signed ? Patient: Ginette Arceo ?MR ?? #: [id number] ? : 1975 ?Acct:[id number] ? Age/Sex: 49 / F ?ADM Date: 09/14/24 ? Loc: HO.HOSX ? Attending Dr: Madonna Melara MD ? Ordering Physician: Madonna Bonilla ?? Date of Service: 09/14/24 ?? Procedure(s): XR humerus LT ?? Accession Number(s): [id number] ? cc: Mackenzie Estrada; Madonna Bonilla ? [...] DD/ 0800 ? TD/TT: 09/15/24 0800 ? Traffic Checker: ? Procedure Note Donotuseinterpreter, Image - 09/15/2024 [facility] [address] [place] [address] XRay Report Signed Patient: Ginette ArceoMR #: [id number] : 1975Acct:[id number] Age/Sex: 49 / FADM Date: 09/14/24 Loc: HO.DUKE Attending Dr: Madonna Melara MD Ordering Physician: Madonna Bonilla Date of Service: 09/14/24 Procedure(s): XR humerus LT Accession Number(s): [id number] cc: Mackenzie Estrada; Madonna Bonilla CLINICAL HISTORY: [...] Woodson MD in OV> 09/15/24 0801 DD/ 0800 TD/TT: 09/15/24 0800 Traffic Checker: [facility] External Provider IMG XR PROCEDURES Edited Result - Final * Hepatitis C Ab (04/11/2024 10:26 AM EDT) Hepatitis C Antibody Nonreactive Nonreactive [facility] Comment:Antibodies to HCV no t detected; does not exclude early acuteHCV infection. Blood Venous blood specimen / Unknown 04/11/2024 10:26 AM EDT 04/11/2024 11:19 AM EDT Mackenzie Estrada MD LAB BLOOD ORDERABLES Final Res ult [facility] [address] [place] [address] [phone] * HIV-1/2 Antigen and Antibodies, Fourth Generation, with Reflexes (04/11/2024 10:26 AM EDT) HIV AB/AG Nonreactive Nonreactive [facility] Comment:HIV-1 p24 Ag and/or HIV-1/HIV-2 Ab not detected.A test result that is nonreactive does not exclude thepossibility of exposure to or infection with HIV-1 and/orHIV-2. Nonreactive results in this assay for individualswith prior exposure to HIV-1 and/or HIV-2 may be due toantigen and antibody levels that are below the limit ofdetection of this assay.The [employer] HIV Ag/Ab Combo assay result andsupplemental assay results should be interpreted inconjunction with the patient's clinical presentation,history and other laboratory results. If the results areinconsistent with clinical evidence, additional testing issuggested to confirm the result. Blood Venous blood specimen / Unknown 04/11/2024 10:26 AM EDT 04/11/2024 11:19 AM EDT us Mackenzie Estrada MD LAB BLOOD ORDERABLES Final Res ult [facility] [address] [place] [address] [phone] * HPV mRNA E6/E7 w/Reflex to HPV Genotypes 16, 18/45 (09/29/2023 12:26 PM EST) Pathologist [facility] HPV nRNA E6/E7 Not Detected Not Detected [facility] Comment:Methodology: Transcr iption-Mediated AmplificationThis assay detects E6/E7 viral messenger RNA (mRNA) from 14high-risk HPV types (16,18,31,33,35,39,45,51,52,56,58,59,66,68).Cervical sources are required for HPV testing.If a vaginal source from a patient who has had atotal hysterectomy with removal of cervix wassubmitted, please contact the testing laboratoryfor alternative testing options.For additional information, please refer tohttp://education.Indiegogo/faq/QHM770o1(This link if provided for information/educational purposes only.)THIS TEST WAS PERFORMED AT:[facility] [address] [address]NUINYNOÉ GALVAN MD HPV mRNA E6/E7 TNP [facility] HPV 16 RNA TNP [facility] HPV 18/45 RNA TNP [facility] 09/29/2023 12:2 6 PM EST 09/30/2023 11:30 AM EST Mackenzie Estrada MD LAB CYTOLOGY ORDERABLES Final Result [facility] [address] [place] [address] [phone] * Pap Smear (09/29/2023 12:26 PM EST) 09/29/2023 12:2 6 PM EST 09/30/2023 11:30 AM EST Narrative [facility] - 10/12/2023 4:18 PM EDT ----- ------- Name: Ginette Arceo ?Age/Sex: 48/F ? : 1975 Unit#: [id number] ?? Attend Dr: Mackenzie Estrada ?Re09/29/23 ?Status: DEP REF ? [facility] ? Disch: ? ----- ------- SPEC : [id number] ? RECD: 09/30/23 ? STATUS: ??SOUT ? REQ NUM: [id number] ? BHAVIN: 09/29/23 ? SUBM DR: Mackenzie Estrada ? [...] 66, 68) ?? HPV testing performed by [facility], [place], [place]. ??See reference laboratory ?? portion of the EMR for entire report. ?Clinical Information LMP: Heavy menstrual bleeding past two weeks Previous PAP test: Unknown date/findings Other history: ? Material Received ?? ThinPrep-Cervical ----- ------- Signed (signature on file) Becky Alcocer CT (ASCP) 10/12/23 1618 ? ----- ------- ? END OF REPORT ? Mackenzie Estrada MD LAB CYTOLOGY ORDERABLES Final Result [facility] [address] [place] [phone] * Mammography Report 1 (10/09/2021 [...] ?? Hi COELLO et al. ROXY. 2013;310(19): 3622-7430 ?? (http://education.GuardiCore/faq/PHE492) Non-HDL Cholesterol 175(H) <130 mg/dL (calc) [facility] Comment: For patients with diabetes plus 1 major ASCVD risk ?? factor, treating to a non-HDL-C goal of <100 mg/dL ?? (LDL-C of <70 mg/dL) is considered a therapeutic ?? option. Triglycerides 237(H) <150 mg/dL [facility] Comment: ?? If a non-fasting specimen was collected, consider repeat triglyceride testing on a fasting specimen if clinically indicated. ?? Cory et al. J. of Clin. Lipidol. 2015;9:129-169. ?? 09/14/2021 2:52 PM EST us Mackenzie Estrada MD LAB BLOOD ORDERABLES Final Res ult [facility] [address] [place] [address], * Colonoscopy (10/28/2017) Colonoscopy Normal Normal Narrative Cecilia Henriquez - 10/28/2017 Recommended 10 year follow up ([facility] Historical Provider HEALTH MAINTENANCE Edited Result - Final from Last 3 Months or Most Recently Relevant to Health Maintenance Insurance [facility] [address] [place] [address] [facility]ENTAL-[facility] MEDICAID STAND ADULT 1 [place] [address] 1 [place], [place] Care Teams Desk Pens Assembler Relationship Specialty Start Date End Date Mackenzie Estrada MD [address] [place] [address] PCP - General Family Medicine 07/10/20
--- OUTSIDE RECORDS SUMMARY | 2024-11-06 15:10 | XMS_ITS | Encounter Summary ---
Author Organization [employer] Address [address] [facility] 7t [place] [address] Care Team Providers Care Aerial Crop Duster Name Role Phone Mackenzie Estrada MD Primary Care Provider [phone] Reason for Visit * Reason Onset Date Comments Error 08/16/2023 Encounter Details Date Type Department Care Team ([facility] Contact Info) Description 08/16/2023 Telephone [facility] [address] [place], [place] [phone] Mackenzie Estrada MD [address] [place], [place] [phone] Error Social History Tobacco Use Types Packs/Day [...] Description 12/11/2024 9:45 AM EDT Office Visit [address] [address] 12/28/2024 9:45 AM EDT Office Visit [address] [address] Mackenzie Estrada MD [address] [place] [address] documented as of this encounter Goals Goal Patient Goal Type Associated Problems Recent Progress Patient-Stated? Author Quit using tobacco (cigarettes, smokeless, etc) Tobacco Use No Corey Lin, PharmD documented as of this encounter Visit Diagnoses Not on filedocumented in this encounter Care Teams Aerial Crop Duster Relationship Specialty Start Date End Date Mackenzie Estrada MD [address] [place] [address] PCP - General Family Medicine 07/10/20 documented as of this encounter
--- OUTSIDE RECORDS SUMMARY | 2024-11-06 15:10 | XMS_ITS | Encounter Summary ---
Author Organization [email or web address] Address [address] [facility] 7t [place] [address] Care Team Providers Care Parachute Harness Rigger Name Role Phone Mackenzie Estrada MD Primary Care Provider [phone] Reason for Visit * Reason Comments Med Refill Encounter Details Date Type Department Care Team ([facility] st Contact Info) Description 06/03/2023 Refill [facility] [address] [place], [place] [phone] Mackenzie Estrada MD [address] [place], [place] [phone] Pain in both hands Social History Tobacco [...] Description 12/11/2024 9:45 AM EDT Office Visit [address] [address] 12/28/2024 9:45 AM EDT Office Visit [address] [address] Mackenzie Estrada MD [address] [place] [address] documented as of this encounter Goals Goal Patient Goal Type Associated Problems Recent Progress Patient-Stated? Author Quit using tobacco (cigarettes, smokeless, etc) Tobacco Use No Corey Lin, PharmD documented as of this encounter Visit Diagnoses Diagnosis Pain in both hands documented in this encounter Care Teams Parachute Harness Rigger Relationship Specialty Start Date End Date Mackenzie Estrada MD [address] [place] [phone] PCP - General Family Medicine 07/10/20 documented as of this encounter
--- OUTSIDE RECORDS SUMMARY | 2024-11-06 15:10 | XMS_ITS | Encounter Summary ---
Author Organization [employer] Address [address] [facility] [address] 7t [place] [address] Care Team Providers Care Rack Production Worker Name Role Phone Mackenzie Estrada MD Primary Care Provider [phone] Encounter Details Date Type Department Care Team (Late st Contact Info) Description 10/03/[address] [facility] [address] [place], [place] [phone] Mackenzie Estrada MD [address] [place], [place] [phone] Bacterial vaginosis (Primary Dx) Social History Tobacco [...] Description 12/11/2024 9:45 AM EDT Office Visit [address] [address] 12/28/2024 9:45 AM EDT Office Visit [address] [address] Mackenzie Estrada MD [address] [place] [phone] documented as of this encounter Goals Goal Patient Goal Type Associated Problems Recent Progress Patient-Stated? Author Quit using tobacco (cigarettes, smokeless, etc) Tobacco Use No Corey Lin, PharmD documented as of this encounter Visit Diagnoses Diagnosis Bacterial vaginosis- Primary Unspecified vaginitis and vulvovaginitis documented in this encounter Care Teams Rack Production Worker Relationship Specialty Start Date End Date Mackenzie Estrada MD [address] [place] [phone] PCP - General Family Medicine 07/10/20 documented as of this encounter
--- OUTSIDE RECORDS SUMMARY | 2024-11-06 15:10 | XMS_ITS | Encounter Summary ---
Author Organization [employer] Address [address] [facility] [address] 7[address] [place] [address] Care Team Providers Care Clinical Leader Name Role Phone Mackenzie Estrada MD Primary Care Provider [phone] Encounter Details Date Type Department Care Team (Latest Contact Info) Description 11/06/2024 Travel Social History Tobacco Use Types Packs/Day [...] Description 12/11/2024 9:45 AM EDT Office Visit [facility] [address] [place] [address] 12/28/2024 9:45 AM EDT Office Visit [address] [address] Mackenzie Estrada MD [address] [place] [address] documented as of this encounter Goals Goal [...] documented as of this encounter Care Teams Clinical Leader Relationship Specialty Start Date End Date Mackenzie Estrada MD [address] [place] [address] PCP - General Family Medicine 07/10/20 documented as of this encounter
--- OUTSIDE RECORDS SUMMARY | 2024-11-06 15:10 | XMS_ITS | Encounter Summary ---
Author Organization [employer] Address [address] [facility] [address] 7t [place] [address] Care Team Providers Care Shuttle Final Inspector Name Role Phone Mackenzie Estrada MD Primary Care Provider [phone] Encounter Details Date Type Department Care Team (Late st Contact Info) Description 06/03/2023 Orders Only [facility] [address] [place], [place] [phone] Mackenzie Estrada MD [address] [place], [place] [phone] Pain in both hands Social History Tobacco [...] Description 12/11/2024 9:45 AM EDT Office Visit [facility] [address] [place] [address] 12/28/2024 9:45 AM EDT Office Visit [facility] [address] [place] [address] Mackenzie Estrada MD [address] [place] [address] documented as of this encounter Goals Goal [...] both hands INFLUENZA A B2 ID NOW ([employer]) Routine 06/03/2023 4:34 PM EDT Pain in both hands COVID-19 ID NOW ([facility]) Routine 06/03/2023 4:34 PM EDT Pain in both hands documented in this encounter Results * XR Chest 2 Views (06/25/2023 12:15 PM EST) Anatomical Region Laterality Modality Chest Radiographic Rin ging 06/25/2023 12:1 5 PM EST Narrative 06/03/2023 5:47 PM EDT ? [facility] ?[address] ?[place] [address] ?XRay Report ? Signed ? Patient: Ovidio Lacy,Ginette ?MR ?? #: [id number] ? : 1975 ?Acct:[id number] ? Age/Sex: 47 / F ?ADM Date: 06/25/23 ? Loc: HO.ED ? Attending Dr: ? Ordering Physician: Treasure Clemons ?? Date of Service: 06/25/23 ?? Procedure(s): XR chest 2V ?? Accession Number(s): [id number] ? cc: Mackenzie Estrada; Treasure Clemons ? [...] 1230 ? DD/ 1215 ? TD/TT: ? Striker Off: MSM ? Procedure Note Lorin, Image - 06/25/[address] [address] XRay Report Signed Patient: Ginette ArceoMR #: [id number] : 1975Acct:[id number] Age/Sex: 47 / FADM Date: 06/25/23 Loc: HO.ED Attending Dr: Ordering Physician: Treasure Clemons Date of Service: 06/25/23 Procedure(s): XR chest 2V Accession Number(s): [id number] cc: Mackenzie Estrada; Treasure Clemons EXAMINATION: XR [...] in OV> 06/25/23 1230 DD/ 1215 TD/TT: Striker Off: MAGGIE [facility] External Provider IMG XR PROCEDURES Edited Result - Final * (ABNORMAL) Urinalysis, Complete, with Reflex to Culture (06/03/2023 4:49 PM EDT) Color Urine Yellow [facility] Appearance Urine Clear [facility] PH 5.5 5.0 - 9.0 [facility] Glucose Urine UA Negative Negative mg/dL [facility] Urine Blood Large (3+)(A) Negative [facility] Specific [place] - Urine 1.025 1.005 - 1.025 [facility] Urine Protein Negative Neg-Trace mg/dL [facility] Urine Ketones Negative Negative mg/dL [facility] Nitrite Urine Negative Negative [facility] Leukocyte Esterase Urine Negative Negative [facility] RBC Urine >20(A) 0 - 2 /HPF [facility] Urine WBC 0-5 0 - 5 /HPF [facility] Urine Squamous Epithelial Cell 11-20 0 - 2 /HPF [facility] Urine Bacteria 1+ None Seen [facility] Hyaline Casts, Urine 0-2 0 - 2 /LPF [facility] 06/03/2023 4:49 PM EDT 06/03/2023 4:52 PM EDT Narrative [facility] - 06/03/2023 5:00 PM EDT Urine, Clean Catch us Generic External Data Provider LAB URINE ORDERAB LES Final Result Performing Organization Address [facility]/ZIP Co de Phone Number [facility] [address] [place] [phone] * (ABNORMAL) Urinalysis w/reflex microscopic (06/03/2023 4:49 PM EDT) Color Urine Yellow [facility] Appearance Urine Clear [facility] PH 5.5 5.0 - 9.0 [facility] Glucose Urine UA Negative Negative mg/dL [facility] Urine Blood Large (3+)(A) Negative [facility] Specific [place] - Urine 1.025 1.005 - 1.025 [facility] Urine Protein Negative Neg-Trace mg/dL [facility] Urine Ketones Negative Negative mg/dL [facility] Nitrite Urine Negative Negative [facility] Leukocyte Esterase Urine Negative Negative [facility] 06/03/2023 4:49 PM EDT 06/03/2023 4:52 PM EDT Narrative [facility] - 06/03/2023 4:57 PM EDT Urine, Clean Catch us Generic External Data Provider LAB URINE ORDERAB LES Final Result Performing Organization Address [facility]/ZIP Co de Phone Number [facility] [address] [place] [phone] * Influenza A B2 ID NOW ([facility]) (06/03/2023 4:34 PM EDT) IDNOW SERIAL# [id number] [facility] Influenza A Negative Negative [facility] Influenza B2 Negative Negative [facility] Influenza A B2 Note See Note [facility] Comment:The Corona ID NOW In [...] LAB MICROBIOLOGY - GENERAL ORDERABLES Final Result [facility] [address] [place] [phone] * COVID-19 ID NOW ([employer]) (06/03/2023 4:34 PM EDT) IDNOW SERIAL# [id number] [facility] COVID-19 TEST Negative Negative [facility] COVID-19 NOTE See Note [facility] Comment: Results are for the identification of SARS-CoV2 RNA. TheSARS-CoV2 RNA is generally detectable in respiratory samplesduring the acute phase of infection. Positive results areindicative of the presence of SARS-CoV-2 RNA; clinicalcorrelation with patient history and other diagnosticinformation is necessary to determine patient infectionstatus. Positive results do not rule out bacterial infectionor co- infection with other viruses.Testing facilities within the [facility] and [facility] are required to report all positive results [...] use by authorized laboratories.Testing performed on the [place] ID NOW utilizing [employer]. 06/03/2023 4:34 PM EDT 06/03/2023 4:40 PM EDT us Generic External Data Provider LAB MOLECULAR ARNAV GNOSTICS ORDERABLES Final Result [facility] [address] [place] [phone] [phone] documented in this encounter Visit Diagnoses Diagnosis Pain in both hands documented in this encounter Care Teams Shuttle Final Inspector Relationship Specialty Start Date End Date Mackenzie Estrada MD [address] [place] [phone] PCP - General Family Medicine 07/10/20 documented as of this encounter
--- OUTSIDE RECORDS SUMMARY | 2024-11-06 15:10 | XMS_ITS | Encounter Summary ---
Author Organization [employer] Address [address] 7t [place] [address] Care Team Providers Care International Trade Teacher Name Role Phone Mackenzie Estrada MD Primary Care Provider [phone] Encounter Details Date Type Department Care Team ([facility] Contact Info) Description 11/06/2024 Orders Only [facility] External Provider, [facility] Social History Tobacco Use Types Packs/Day [...] Description 12/11/2024 9:45 AM EDT Office Visit [address] [address] 12/28/2024 9:45 AM EDT Office Visit [address] [address] Mackenzie Estrada MD [address] [place] [address] documented as of this encounter Goals Goal Patient Goal Type Associated Problems Recent Progress Patient-Stated? Author Quit using tobacco (cigarettes, smokeless, etc) Tobacco Use No Corey Lin, [place] documented as of this encounter Procedures Procedure Name Priority Date/Time Associated Diagnosis Comments [facility] LOWER EXTREMITY ARTERIAL DUPLEX BILATERAL WITH SUGAR Routine 11/06/2024 1:05 PM EDT documented in this encounter Results * [facility] Lower Extremity Arterial Duplex Bilateral With Sugar (11/06/2024 1:05 PM EDT) 11/06/2024 1:05 PM EDT [facility] - 11/06/2024 2:10 PM EDT ? [facility] ?[address] ?[place] [address] ? Ultrasound Report ? Signed ? Patient: Ovidio Lacy,Ginette ?MR ?? #: [id number] ? : 1975 ?Acct:[id number] ? Age/Sex: 49 / F ?ADM Date: 11/06/24 ? Loc: HO.US ? Attending Dr: Frankie Hughes MD ? Ordering Physician: Frankie Hughes MD ?? Date of Service: 11/06/24 ?? Procedure(s): US arterial duplex BI w/ SUGAR ?? Accession Number(s): [id number] ? cc: Mackenzie Estrada; Frankie Hughes MD [...] DD/ 1305 ? TD/TT: 11/06/24 1352 ? Latex Caster: ? Procedure Note Lorin, Deepa - 11/06/[address] [address] Ultrasound Report Signed Patient: Ginette Arceo #: [id number] : 1975Acct:[id number] Age/Sex: 49 / FADM Date: 11/06/24 Loc: . Attending Dr: Frankie Hughes MD Ordering Physician: Frankie Hughes MD Date of Service: 11/06/24 Procedure(s): US arterial duplex BI w/ SUGAR Accession Number(s): [id number] cc: Mackenzie Estrada; Frankie Hughes MD EXAMINATION: [...] Madan Tijerina MD 11/06/2024 02:07 PM EDT RP Dictated By: Madan Nye MD Signed By: <Electronically signed by Madan Rose MDin OV> 11/06/24 1407 DD/ 1305 TD/TT: 11/06/24 1352 Latex Caster: [facility] External Provider CV VASC ULAR PROCEDURES Final Result [facility] [address] [place] [address] documented in this encounter Visit Diagnoses Not on filedocumented in this encounter Additional Health Concerns Assessment Noted Time PHQ-9 Depression Total Score: 2 04/30/20 24 10:41 AM EDT documented as of this encounter Care Teams International Trade Teacher Relationship Specialty Start Date End Date Mackenzie Estrada MD [address] [place] [phone] PCP - General Family Medicine 12/10/20 documented as of this encounter
--- OUTSIDE RECORDS SUMMARY | 2024-11-06 15:10 | XMS_ITS | Encounter Summary ---
Author Organization [employer] Address 75 [facility] 7t [place] [address] Care Team Providers Care Electroplating Worker Name Role Phone Mackenzie Estrada MD Primary Care Provider [phone] Reason for Visit * Reason Onset Date Comments Hospital Follow-up 02/24/2024 Encounter Details Date Type Department Care Team ([facility] st Contact Info) Description 02/24/2024 Telephone [facility] MEDICINE [address] [place], [place] [phone] Mackenzie Estrada MD 230 [place] [address] Hospital Follow-up Social History Tobacco Use Types [...] from pt requesting a HDF appt. Hospital: [facility] Date of admission: 02/19 Discharge date: 02/23 Diagnosed: Rectal Bleeding Chadian Speaker documented in this encounter Plan of Treatment Upcoming Encounters Date Type Department Care Team (Late st Contact Info) Description 12/11/2024 9:45 AM EDT Office Visit [facility] MEDICINE [address] [place] [address] 12/28/2024 9:45 AM EDT Office Visit [facility] MEDICINE [address] [place] [address] Mackenzie Estrada MD [address] [place] [address] documented as of this encounter Goals Goal Patient Goal Type Associated Problems Recent Progress Patient-Stated? Author Quit using tobacco (cigarettes, smokeless, etc) Tobacco Use No Corey Lin, Bailey documented as of this encounter Visit Diagnoses Not on filedocumented in this encounter Care Teams Electroplating Worker Relationship Specialty Start Date End Date Mackenzie Estrada MD [address] [place] [address], [place] [address] PCP - General Family Medicine 07/10/20 documented as of this encounter
--- OUTSIDE RECORDS SUMMARY | 2024-11-06 15:10 | XMS_ITS | Encounter Summary ---
Author Organization [email or web address] Address [address] [facility] 7t [place] [address] Care Team Providers Care Glazing Machine Operator Name Role Phone Mackenzie Estrada MD Primary Care Provider [phone] Reason for Visit * Reason Onset Date Comments Triage 11/10/2022 Encounter Details Date Type Department Care Team ([facility] Contact Info) Description 11/10/[address] [facility] MEDICINE 230 [place], [place] [phone] Mackenzie Estrada MD 230 [place], [place] [phone] Triage Social History Tobacco Use Types Packs/Day [...] - 11/11/2022 11:10 AM EDT TC to [phone] via [employer] interpreters in regards to below message. Pt reports she went to [facility] since [facility] did not return her call. RN informed pt triage nurses attempted to call pt x2 however pt did not answer. RN reviewed [facility] ED note and pt presented to ED [...] however she has not been able to mixing picker tender the nystatin medication because [facility] did not have it. RN asked if [facility] informed the pt they were going to order it however pt was not sure. RN placed pt on hold and called [facility] pharmacy who reports it is supposed to be arriving in store today and pt should call around 3pm to inquire if it was received and ready for mixing picker tender. Pt verbalized understanding. RN advised pt if her rash does not resolve with medication and her pain does not resolve to call [facility] to schedule an appt for further evaluation. Pt verbalized understanding. Pt to F/U PRN. RN has printed ED note and placed in scan bin * Telephone Encounter - Chiak Ingram LPN - 11/10/2022 2:30 PM EDT Triage call returned to patient with [facility] [phone] to listed number x 2 no answer. Left message to return call to [phone]. Team Nurses tasked to follow with patient [...] Description 12/11/2024 9:45 AM EDT Office Visit [address] [address] 12/28/2024 9:45 AM EDT Office Visit [address] [address] Mackenzie Estrada MD [address] [place] [address] documented as of this encounter Visit Diagnoses Not on filedocumented in this encounter Care Teams Glazing Machine Operator Relationship Specialty Start Date End Date Mackenzie Estrada MD [address] [place] [address] PCP - General Family Medicine 07/10/20 documented as of this encounter
--- OUTSIDE RECORDS SUMMARY | 2024-11-06 15:10 | XMS_ITS | Encounter Summary ---
Author Organization [employer] Address 75 [facility] 7t [place] [address] Care Team Providers Care Tele Tech Name Role Phone Mackenzie Estrada MD Primary Care Provider [phone] Reason for Visit * Reason Comments Med Refill Encounter Details Date Type Department Care Team ([facility] st Contact Info) Description 06/01/2023 Refill [facility] MEDICINE 230 [place], [place] [phone] Mackenzie Estrada MD 230 [place], [place] [phone] Pain in both hands Social History Tobacco [...] Description 12/11/2024 9:45 AM EDT Office Visit [address] [address] 12/28/2024 9:45 AM EDT Office Visit [address] [address] Mackenzie Estrada MD [address] [place] [address] documented as of this encounter Goals Goal Patient Goal Type Associated Problems Recent Progress Patient-Stated? Author Quit using tobacco (cigarettes, smokeless, etc) Tobacco Use No Corey Lin, PharmD documented as of this encounter Visit Diagnoses Diagnosis Pain in both hands documented in this encounter Care Teams Tele Tech Relationship Specialty Start Date End Date Mackenzie Estrada MD [address] [place] [address] PCP - General Family Medicine 07/10/20 documented as of this encounter
--- OUTSIDE RECORDS SUMMARY | 2024-11-06 15:10 | XMS_ITS | Encounter Summary ---
Author Organization [employer] Address 75 [facility] 7t [place] [address] Care Team Providers Care Ammunition And Explosives Handler Name Role Phone Mackenzie Estrada MD Primary Care Provider [phone] Reason for Visit * Reason Comments Med Refill Encounter Details Date Type Department Care Team ([facility] st Contact Info) Description 01/12/2024 Refill [facility] MEDICINE 230 [place], [place] [phone] Mackenzie Estrada MD 230 [place], [place] [phone] Rheumatoid arthritis involving multiple sites with positive rheumatoid factor ([facility]) Social History Tobacco Use Types [...] Description 12/11/2024 9:45 AM EDT Office Visit [facility] MEDICINE [address] [place] [address] 12/28/2024 9:45 AM EDT Office Visit [address] [address] Mackenzie Estrada MD [address] [place] [address] documented as of this encounter Goals Goal Patient Goal Type Associated Problems Recent Progress Patient-Stated? Author Quit using tobacco (cigarettes, smokeless, etc) Tobacco Use No Corey Lin, KelechiD documented as of this encounter Visit Diagnoses Diagnosis Rheumatoid arthritis involving multiple sites with positive rheumatoid factor ([facility]) documented in this encounter Care Teams Ammunition And Explosives Handler Relationship Specialty Start Date End Date Mackenzie Estrada MD [address] [place] [address] PCP - General Family Medicine 07/10/20 documented as of this encounter
--- OUTSIDE RECORDS SUMMARY | 2024-11-06 15:10 | XMS_ITS | Encounter Summary ---
Author Organization [employer] Address [address] [facility] [address] 7t [place] [address] Care Team Providers Care Tucking Machine Operator Name Role Phone Mackenzie Estrada MD Primary Care Provider [phone] Reason for Visit * Reason Comments Med Refill Encounter Details Date Type Department Care Team ([facility] st Contact Info) Description 08/26/2023 Refill [facility] MEDICINE 230 [place] [address] Sisi Kennedy FNP [address] [place], [place] [phone] Viral upper respiratory tract infection Social History [...] Description 12/11/2024 9:45 AM EDT Office Visit [address] [address] 12/28/2024 9:45 AM EDT Office Visit [address] [address] Mackenzie Estrada MD [address] [place] [address] documented as of this encounter Goals Goal Patient Goal Type Associated Problems Recent Progress Patient-Stated? Author Quit using tobacco (cigarettes, smokeless, etc) Tobacco Use No Corey Lin, PharmD documented as of this encounter Visit Diagnoses Diagnosis Viral upper respiratory tract infection Acute upper respiratory infections of unspecified site documented in this encounter Care Teams Tucking Machine Operator Relationship Specialty Start Date End Date Mackenzie Estrada MD [address] [place] [address] PCP - General Family Medicine 07/10/20 documented as of this encounter
--- OUTSIDE RECORDS SUMMARY | 2024-11-06 15:10 | XMS_ITS | Encounter Summary ---
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 [...] the past 12 months, has t he [employer] or [employer] company threatened to [...] Description 12/11/2024 9:45 AM EDT Office Visit [facility] MEDICINE [address] [place] [address] 12/28/2024 9:45 AM EDT Office Visit [facility] MEDICINE [address] [place] [address] Mackenzie Estrada MD [address] [place] [address] documented as of this encounter Goals Goal [...] documented as of this encounter Care Teams Convention Services Manager Relationship Specialty Start Date End Date Mackenzie Estrada MD [address] [place] [address] PCP - General Family Medicine 07/10/20 documented as of this encounter
--- OUTSIDE RECORDS SUMMARY | 2024-11-06 15:10 | XMS_ITS | Encounter Summary ---
Author Organization [employer] Address [address] [facility] [address] 7t [place] [address] Care Team Providers Care Mechanical Engineering Coop Name Role Phone Mackenzie Estrada MD Primary Care Provider [phone] Encounter Details Date Type Department Care Team (Late st Contact Info) Description 11/06/2024 9:45 AM EDT Office Visit [facility] MEDICINE 230 [place] [address] Sisi Kennedy FNP [address] [place], [place] [phone] Rheumatoid arthritis involving multiple sites with positive rheumatoid factor (CMS/HCC) (Primary Dx); Long-term current use of opiate analgesic; Chronic low back pain, unspecified back pain laterality, unspecified whether sciatica present; Cellulitis of upper extremity, unspecified laterality; Acute otitis externa of both ears, unspecified type Social History Tobacco Use Types Packs/Day Years [...] this encounter Progress Notes * Sisi Kennedy, ELECTRONIC SYSTEMS TECHNICIAN - 11/06/2024 9:45 AM EDT Subjective: Ginette Lacy is a 49 y.o. female w/ PMH rheumatoid arthritis, lumbosacral stenosis, DVT, GERD, Hodgkin lymphoma, migraines, and chronic low back pain, who presents to the office for - Chronic Pain Clinic Group visits. Initial Group visit: 12/13/23 Group Topic: Art Therapy - Hx painful nodules on elbows, intermittently erythematous and inflamed. Recently started drainingsome fluid. Will tx with course of doxy and keflex. Denies any F/C/N/V/D. Has upcoming appt with Onc. Also with pain in bilateral ear canals x 2-3 days. Chronic Pain History: Associated Diagnosis: Rheumatoid Arthritis Following with [facility] Rheumatology Per PCP Note: RF++CCP++ Regularly requiring bursts [...] daily. Current pharm tx: Medication: Percocet 7.5-325mg Q6H PRN. States taking medication as prescribed. Review of Systems Constitutional: Negative for chills and fever. Respiratory: Negative for cough and wheezing. Cardiovascular: Negative for chest pain. Musculoskeletal: Positive for arthralgias. Physical Exam Constitutional: Appearance: Normal appearance. HENT: Right Ear: Tympanic membrane normal. Left Ear: Tympanic membrane normal. Ears: Comments: Mild erythema bilat ear canals Pulmonary: Effort: Pulmonary effort is normal. Skin: Comments: Nodules bilateral elbows, TTP. No current erythema. Neurological: Mental Status: She is alert and oriented to person, place, and time. Psychiatric: Mood and Affect: Mood normal. Behavior: Behavior normal. Problem List Items Addressed This Visit Other Rheumatoid arthritis involving multiple sites ([facility]) - Primary Overview - Following with [facility] Rheumatoloy Current Assessment & Plan -Good engagement and participation with Group Medical Visit model -Encouraged multifactorial approach to pain control including pharm and non- pharm modalities -UTOX and Pill count as expected Relevant Orders POCT GALLO-14 Urine Drug Screen (Completed) Chronic lower back pain Relevant Medications Diclofenac Sodium 1 % gel Long-term current use of opiate analgesic Overview Medication: Percocet 7.5/325mg, increasing to every 6 hours prn at 09/2024 refill Indication: Rheumatoid arthritis Last LABOR TRAINER Agreement: 06/12/24 Tier: II (Q3 months visits), Dr. Estrada 08/15/24 Current Assessment & Plan Timeline: - 11/06/24: Group - Utox/pill count as expected Relevant Orders POCT GALLO-14 Urine Drug Screen (Completed) Other Visit Diagnoses Cellulitis of upper extremity, unspecified laterality Follow up if symptoms worsen or persist Relevant Medications doxycycline (Vibra-Tabs) 100 MG tablet cephalexin (Keflex) 500 MG capsule Acute otitis externa of both ears, unspecified type Relevant Medications mpsxabfd-wgqrsbwte-emwnjsyfuyrhct (Cortisporin) 3.5-09291-8 otic suspension Follow up: 1-3 months for Group Chronic Pain Clinic. Follow up as scheduled with PCP, sooner as needed. * Coral Somers RN - 11/06/2024 9:45 AM EDT .LABOR TRAINER riprap placing supervisor: PDMP reviewed today. Last fill date: 10/17/24 (Percocet 7.5-325mg qid) count was (39), anticipated (31) to be remaining. BZO from an outside provider. .UTOX completed. Positive for (OXY, THC), Negative for AMP, BAR, BUP, ANKUSH, FTY, MDMA, MET, MOP, MTD, OXY, PCP, TCA. UTOX as expected. documented in this encounter Miscellaneous Notes * Assessment & Plan Note - FARHEEN Ng - 11/06/2024 1:49 PM EDTAssociated Problem(s): Long-term current use of opiate analgesic Timeline: - 11/06/24: Group - Utox/pill count as expected * Assessment & Plan Note - FARHEEN Ng - 11/06/2024 1:48 PM EDTAssociated Problem(s): Rheumatoid arthritis involving multiple sites ([facility]) -Good engagement and participation with Group Medical Visit model -Encouraged multifactorial approach to pain control including pharm and non- pharm modalities -UTOX and Pill count as expected documented in this encounter Plan of Treatment Upcoming Encounters Date Type Department Care Team (Late st Contact Info) Description 12/11/2024 9:45 AM EDT Office Visit [facility] MEDICINE [address] [place] [address] 12/28/2024 9:45 AM EDT Office Visit [facility] MEDICINE [address] [place] [address] Mackenzie Estrada MD 230 [place] [address] documented as of this encounter Goals Goal Patient Goal Type Associated Problems Recent Progress Patient-Stated? Author Quit using tobacco (cigarettes, smokeless, etc) Tobacco Use No Corey Lin, KelechiD documented as of this encounter Procedures Procedure Name Priority Date/Time Associated Diagnosis Comments POCT GALLO-14 URINE DRUG SCREEN Routine 11/06/2024 10:46 AM EDT Rheumatoid arthritis involving multiple sites with positive rheumatoid factor (CMS/HCC) Long-term current use of opiate analgesic documented in this encounter Results * POCT GALLO-14 Urine Drug Screen (11/06/2024 10:46 AM EDT) THC Positive Oxycodone Screen, Urine Positive Urine Urine specimen obtained by clean catch procedure / Unknown 11/06/2024 10:46 AM EDT Narrative Coral Somers RN - 11/06/2024 10:46 AM EDT .UTOX cup Lot#[id number] Exp. 03/20/26 Internal Pass Control Sisi Kennedy ELECTRONIC SYSTEMS TECHNICIAN POINT OF CARE TEST ENTER/EDIT ORDERABLES Final Result documented in this encounter Visit Diagnoses Diagnosis Rheumatoid arthritis involving multiple sites with positive rheumatoid factor (CMS/HCC)- Primary Long-term current use of opiate analgesic Encounter for long-term (current) use of other medications Chronic low back pain, unspecified back pain laterality, unspecified whether sciatica present Cellulitis of upper extremity, unspecified laterality Acute otitis externa of both ears, unspecified type documented in this encounter Additional Health Concerns Assessment Noted Time PHQ-9 Depression Total Score: 2 04/30/20 24 10:41 AM EDT documented as of this encounter Care Teams Mechanical Engineering Coop Relationship Specialty Start Date End Date Mackenzie Estrada MD [address] [place] [address] PCP - General Family Medicine 07/10/20 documented as of this encounter
--- OUTSIDE RECORDS SUMMARY | 2024-11-06 15:10 | XMS_ITS | Encounter Summary ---
Author Organization [email or web address] [facility] Address 75 [facility] 7t [place] [address] Care Team Providers Care Food Photographer Name Role Phone Mackenzie Estrada MD Primary Care Provider [phone] Encounter Details Date Type Department Care Team ([facility] Contact Info) Description 03/29/2023 Abstract [facility] MEDICINE [address] [place] [address] Cecilia Henriquez Social History Tobacco Use Types [...] Encounters Date Type Department Care Team ([facility] Contact Info) Description 12/11/2024 9:45 AM EDT Office Visit [facility] MEDICINE [address] [place] [phone] 12/28/2024 9:45 AM EDT Office Visit [facility] MEDICINE [address] [place] [address] Mackenzie Estrada MD [address] [place] [address] documented as of this encounter Procedures Procedure Name Priority Date/Time Associated Diagnosis Comments HM COLONOSCOPY Routine 10/28/2017 documented in this encounter Results * Colonoscopy (10/28/2017) Colonoscopy Normal Normal Narrative Cecilia Henriquez - 10/28/2017 Recommended 10 year follow up ([facility]) us Historical Provider HEALTH MAINTENANCE Edited Result - Final documented in this encounter Visit Diagnoses Not on filedocumented in this encounter Care Teams Food Photographer Relationship Specialty Start Date End Date Mackenzie Estrada MD [address] [place] [address] PCP - General Family Medicine 07/10/20 documented as of this encounter
--- OUTSIDE RECORDS SUMMARY | 2024-11-06 15:10 | XMS_ITS | Encounter Summary ---
Author Organization [employer] Address 75 [facility] 7t [place] [address] Care Team Providers Care Financial Accounting Manager Name Role Phone Mackenzie Estrada MD Primary Care Provider [phone] Reason for Visit * Reason Comments Med Refill Encounter Details Date Type Department Care Team ([facility] st Contact Info) Description 06/02/2023 Refill [facility] MEDICINE 230 [place], [place] [phone] Mackenzie Estrada MD 230 [place], [place] [phone] Pain in both hands Social History Tobacco [...] Description 12/11/2024 9:45 AM EDT Office Visit [address] [address] 12/28/2024 9:45 AM EDT Office Visit [address] [address] Mackenzie Estrada MD [address] [place] [address] documented as of this encounter Goals Goal Patient Goal Type Associated Problems Recent Progress Patient-Stated? Author Quit using tobacco (cigarettes, smokeless, etc) Tobacco Use No Corey Lin, PharmD documented as of this encounter Visit Diagnoses Diagnosis Pain in both hands documented in this encounter Care Teams Financial Accounting Manager Relationship Specialty Start Date End Date Mackenzie Estrada MD [address] [place] [address] PCP - General Family Medicine 07/10/20 documented as of this encounter
--- OUTSIDE RECORDS SUMMARY | 2024-11-06 15:10 | XMS_ITS | Encounter Summary ---
Author Organization [employer] Address 75 [facility] 7t [place] [address] Care Team Providers Care Television Anchor Name Role Phone Mackenzie Estrada MD Primary Care Provider [phone] Reason for Visit * Reason Comments Med Refill Encounter Details Date Type Department Care Team ([facility] Contact Info) Description 07/27/[address] [facility] MEDICINE 230 [place], [place] [phone] Name, MD Mark [address] [place] [address] Pain in both hands Social History Tobacco [...] Description 12/11/2024 9:45 AM EDT Office Visit [address] [address] 12/28/2024 9:45 AM EDT Office Visit [address] [address] Mackenzie Estrada MD [address] [place] [address] documented as of this encounter Goals Goal Patient Goal Type Associated Problems Recent Progress Patient-Stated? Author Quit using tobacco (cigarettes, smokeless, etc) Tobacco Use No Corey Lin, PharmD documented as of this encounter Visit Diagnoses Diagnosis Pain in both hands documented in this encounter Care Teams Television Anchor Relationship Specialty Start Date End Date Mackenzie Estrada MD [address] [place] [address] PCP - General Family Medicine 07/10/20 documented as of this encounter
--- OUTSIDE RECORDS SUMMARY | 2024-11-06 15:10 | XMS_ITS | Encounter Summary ---
Author Organization [employer] [facility] Address 75 [facility] 7t [place] [address] Care Team Providers Care Can Marker Name Role Phone Mackenzie Estrada MD Primary Care Provider [phone] Reason for Visit * Reason Comments Med Refill Encounter Details Date Type Department Care Team ([facility] Contact Info) Description 08/25/2022 Refill [facility] MEDICINE [address] [place] [address] [phone] Mackenzie Estrada MD 230 [place], [place] [phone] Pain in both hands Social History Tobacco [...] Department Care Team ([facility] Contact Info) Description 12/11/2024 9:45 AM EDT Office Visit [facility] MEDICINE [address] [place] [address] [phone] 12/28/2024 9:45 AM EDT Office Visit [facility] MEDICINE [address] [place] [address] [phone] Mackenzie Estrada MD [address] [place], [place] [phone] documented as of this encounter Visit Diagnoses Diagnosis Pain in both hands documented in this encounter Care Teams Can Marker Relationship Specialty Start Date End Date Mackenzie Estrada MD [address] [place], [place] [phone] PCP - General Family Medicine 07/10/20 documented as of this encounter
--- OUTSIDE RECORDS SUMMARY | 2024-11-06 15:10 | XMS_ITS | Encounter Summary ---
Author Organization [employer] Address [address] [facility] [address] 7t [place] [address] Care Team Providers Care Emissions Repair Technician Name Role Phone Mackenzie Estrada MD Primary Care Provider [phone] Encounter Details Date Type Department Care Team (Late st Contact Info) Description 04/10/2024 Orders Only [facility] MED[facility]INE [address] [place], [place] [phone] Mackenzie Estrada MD 230 [place] [address] Social History Tobacco Use Types Packs/Day Years [...] Description 12/11/2024 9:45 AM EDT Office Visit [address] [address] 12/28/2024 9:45 AM EDT Office Visit [address] [address] Mackenzie Estrada MD [address] [place] [address] documented as of this encounter Goals Goal Patient Goal Type Associated Problems Recent Progress Patient-Stated? Author Quit using tobacco (cigarettes, smokeless, etc) Tobacco Use No Corey Lin, PharmD documented as of this encounter Visit Diagnoses Not on filedocumented in this encounter Care Teams Emissions Repair Technician Relationship Specialty Start Date End Date Mackenzie Estrada MD [address] [place] [address] PCP - General Family Medicine 07/10/20 documented as of this encounter
--- OUTSIDE RECORDS SUMMARY | 2024-11-06 15:10 | XMS_ITS | Encounter Summary ---
Author Organization [employer] Address 75 [facility] 7t [place] [address] Care Team Providers Care Assistant Commissioner Name Role Phone Mackenzie Estrada MD Primary Care Provider Reason for Visit * Reason Comments Med Refill Encounter Details Date Type Department Care Team ([facility] st Contact Info) Description 07/21/2023 Refill [facility] MEDICINE 230 [place], [place] [phone] Name, MD Mark 230 [place] [address] Pain in both hands Social History Tobacco [...] Description 12/11/2024 9:45 AM EDT Office Visit [address] [address] 12/28/2024 9:45 AM EDT Office Visit [address] [address] Mackenzie Estrada MD [address] [place] [address] documented as of this encounter Goals Goal Patient Goal Type Associated Problems Recent Progress Patient-Stated? Author Quit using tobacco (cigarettes, smokeless, etc) Tobacco Use No Corey Lin, PharmD documented as of this encounter Visit Diagnoses Diagnosis Pain in both hands documented in this encounter Care Teams Assistant Commissioner Relationship Specialty Start Date End Date Mackenzie Estrada MD [address] [place] [address] PCP - General Family Medicine 07/10/20 documented as of this encounter
--- OUTSIDE RECORDS SUMMARY | 2024-11-06 15:10 | XMS_ITS | Encounter Summary ---
Author Organization [employer] Address 75 [facility] 7t [place] [address] Care Team Providers Care Woven Wood Shade Assembler Name Role Phone Mackenzie Estrada MD Primary Care Provider [phone] Reason for Visit * Reason Onset Date Comments Appointment Request 08/16/2023 Encounter Details Date Type Department Care Team ([facility] Contact Info) Description 08/16/2023 Telephone [facility] MEDICINE 230 [place], [place] [phone] Mackenzie Estrada MD 230 [place] [address] Appointment Request Social History Tobacco Use Types [...] be seen today. Please contact pt @ [phone] Tristanian Speaker documented in this encounter Plan of Treatment Upcoming Encounters Date Type Department Care Team (Late st Contact Info) Description 12/11/2024 9:45 AM EDT Office Visit [facility] MED[facility]INE [address] [place] [address] 12/28/2024 9:45 AM EDT Office Visit [facility]INE [address] [place] [address] Mackenzie Estrada MD [address] [place] [address] documented as of this encounter Goals Goal Patient Goal Type Associated Problems Recent Progress Patient-Stated? Author Quit using tobacco (cigarettes, smokeless, etc) Tobacco Use No Corey Lin, KelechiD documented as of this encounter Visit Diagnoses Not on filedocumented in this encounter Care Teams Woven Wood Shade Assembler Relationship Specialty Start Date End Date Mackenzie Estrada MD 230 [place] [address] PCP - General Family Medicine 07/10/20 documented as of this encounter
--- OUTSIDE RECORDS SUMMARY | 2024-11-06 15:10 | XMS_ITS | Encounter Summary ---
Author Organization [employer] Address 75 [facility] 7t [place] [address] Care Team Providers Care Vegetable Canner Name Role Phone Mackenzie Estrada MD Primary Care Provider [phone] Reason for Visit * Reason Comments Med Refill Encounter Details Date Type Department Care Team ([facility] st Contact Info) Description 07/26/2023 Refill [facility] MEDICINE 230 [place], [place] [phone] Name, MD Mark 230 [place] [address] Pain in both hands Social History Tobacco [...] 12/11/2024 9:45 AM EDT Office Visit [address] [address] 12/28/2024 9:45 AM EDT Office Visit [address] [address] Mackenzie Estrada MD [address] [place] [address] documented as of this encounter Goals Goal Patient Goal Type Associated Problems Recent Progress Patient-Stated? Author Quit using tobacco (cigarettes, smokeless, etc) Tobacco Use No Corey Lin, PharmD documented as of this encounter Visit Diagnoses Diagnosis Pain in both hands documented in this encounter Care Teams Vegetable Canner Relationship Specialty Start Date End Date Mackenzie Estrada MD [address] [place] [address] PCP - General Family Medicine 07/10/20 documented as of this encounter
--- OUTSIDE RECORDS SUMMARY | 2024-11-06 15:10 | XMS_ITS | Encounter Summary ---
Author Organization [employer] Address 75 [facility] 7t [place] [address] Care Team Providers Care Customer Care Representative Name Role Phone Mackenzie Estrada MD Primary Care Provider [phone] Reason for Visit * Reason Comments Med Refill Encounter Details Date Type Department Care Team ([facility] Contact Info) Description 09/22/2022 Refill [facility] [address] [place], [place] [phone] Sarika Palacios ANP 230 [place] [address] Tinea pedis of both feet Social History [...] Team ([facility] Contact Info) Description 12/11/2024 9:45 AM EDT Office Visit [facility] [address] [place] [address] 12/28/2024 9:45 AM EDT Office Visit [facility] [address] [place] [address] Mackenzie Estrada MD [address] [place] [address] documented as of this encounter Visit Diagnoses Diagnosis Tinea pedis of both feet documented in this encounter Care Teams Customer Care Representative Relationship Specialty Start Date End Date Mackenzie Estrada MD [address] [place] [address] PCP - General Family Medicine 07/10/20 documented as of this encounter
--- OUTSIDE RECORDS SUMMARY | 2024-11-06 15:11 | XMS_ITS | Encounter Summary ---
Author Organization [employer] Address [address] [facility] [address] 7t [place] [address] Care Team Providers Care Commander Police Reserves Name Role Phone Mackenzie Estrada MD Primary Care Provider [phone] Encounter Details Date Type Department Care Team ([facility] st Contact Info) Description 05/21/[address] [facility] MEDICINE 230 [place], [place] [phone] Mackenzie Estrada MD 230 [place] [address] Social History Tobacco Use Types Packs/Day Years [...] Description 12/11/2024 9:45 AM EDT Office Visit [address] [address] 12/28/2024 9:45 AM EDT Office Visit [address] [address] Mackenzie Estrada MD [address] [place] [address] documented as of this encounter Goals Goal [...] documented as of this encounter Care Teams Commander Police Reserves Relationship Specialty Start Date End Date Mackenzie Estrada MD [address] [place] [address] PCP - General Family Medicine 07/10/20 documented as of this encounter
--- OUTSIDE RECORDS SUMMARY | 2024-11-06 15:11 | XMS_ITS | Encounter Summary ---
Author Organization [employer] Address 75 [facility] 7t [place] [address] Care Team Providers Care Communication Specialist Name Role Phone Mackenzie Estrada MD Primary Care Provider [phone] Reason for Visit * Reason Comments Med Refill Encounter Details Date Type Department Care Team ([facility] Contact Info) Description 07/28/2022 Refill [facility] MEDICINE 230 [place] [address] Mackenzie Estrada MD 230 [place] [address] Pain in both hands Social History Tobacco [...] Upcoming Encounters Date Type Department Care Team ([facility] Contact Info) Description 12/11/2024 9:45 AM EDT Office Visit [facility] [address] [place] [address] 12/28/2024 9:45 AM EDT Office Visit [facility] [address] [place] [address] Mackenzie Estrada MD [address] [place] [address] documented as of this encounter Visit Diagnoses Diagnosis Pain in both hands documented in this encounter Care Teams Communication Specialist Relationship Specialty Start Date End Date Mackenzie Estrada MD [address] [place] [address] PCP - General Family Medicine 07/10/20 documented as of this encounter
--- OUTSIDE RECORDS SUMMARY | 2024-11-06 15:11 | XMS_ITS | Clinical Summary ---
Author Organization [facility] Address [address] [place] [address] Support Name Relationship Address Phone Brayden Hernandez Emergency Contact [address] [place] [address] Care Team Providers Care Hand Loom Weaver Name Role Phone Abdullahi Lizarraga MD Primary Care Provider [phone] Allergies Active Allergy Reactions Criticality Noted Date [...] age to complete this topic Care Teams Hand Loom Weaver Relationship Specialty Start Date End Date Abdullahi Lizarraga MD [address] [place] [address] PCP - General Nephrology 03/10/18
--- OUTSIDE RECORDS SUMMARY | 2024-11-06 15:11 | XMS_ITS | Encounter Summary ---
Author Organization [employer] Address 75 [facility] [address] 7t [place] [address] Care Team Providers Care Operations Supervisor 2Nd Shift Name Role Phone Mackenzie Estrada MD Primary Care Provider [phone] Encounter Details Date Type Department Care Team (Late st Contact Info) Description 05/10/2024 Orders Only [facility] MEDICINE 230 [place], [place] [phone] Mackenzie Estrada MD 230 [place] [address] Social History Tobacco Use Types Packs/Day Years [...] Description 12/11/2024 9:45 AM EDT Office Visit [facility] [address] [place] [address] 12/28/2024 9:45 AM EDT Office Visit [address] [address] Mackenzie Estrada MD [address] [place] [address] documented as of this encounter Goals Goal Patient Goal Type Associated Problems Recent Progress Patient-Stated? Author Quit using tobacco (cigarettes, smokeless, etc) Tobacco Use Corey Cornell, KelechiD documented as of this encounter Visit Diagnoses Not on filedocumented in this encounter Additional Health Concerns Assessment Noted Time PHQ-9 Depression Total Score: 2 04/30/20 24 10:41 AM EDT documented as of this encounter Care Teams Operations Supervisor 2Nd Shift Relationship Specialty Start Date End Date Mackenzie Estrada MD [address] [place] [address] PCP - General Family Medicine 07/10/20 documented as of this encounter
== END 2024-11-06 12:37 | disposition home or self-care (01) ==
LOC: HO.US 12:36
PROVIDERS: PCP General Practice; Visit Provider Surgery Vascular Surgery
DX: I73.9 Peripheral vascular disease, unspecified (principal)
CPT/HCPCS: 93922; 93925

== ENCOUNTER → 2024-11-06 12:39 | Outpatient (BNV) | payer MEDICAID, SELFPAY | PROVIDERS: PCP General Practice; Visit Provider Radiology Diagnostic Radiology | DX: I73.9 Peripheral vascular disease, unspecified (principal) | CPT/HCPCS: 93922; 93925 ==

== ENCOUNTER 2024-11-09 10:16 | Emergency (ER) | payer MEDICAID, SELFPAY ==
--- NOTE | 2024-11-09 | ECG_ITS ---
Test Reason : cp Blood Pressure : */* mmHG Vent. Rate : 71 BPM Atrial Rate : 71 BPM P-R Int : 166 ms QRS Dur : 100 ms QT Int : 384 ms P-R-T Axes : 74 -50 68 degrees QTcB Int : 417 ms Normal sinus rhythm Left anterior fascicular block Moderate voltage criteria for LVH, may be normal variant ( R in aVL , Remy product ) Septal infarct , age undetermined Abnormal ECG When compared with ECG of 27-Jul-2024 01:08, Septal infarct is now Present Referred By: Generic ED Physician Electronically Signed By: Ruddy Larios
--- NOTE | ~2024-11-09 | XR_ITS ---
EXAMINATION: XR CHEST CLINICAL INFORMATION: Chest pain; pain when lifting arm. COMPARISON: 07/27/2024, 06/08/2024. TECHNIQUE: 2 views of the chest were obtained. FINDINGS: The cardiac, hilar, and mediastinal contours are normal. The lungs are clear bilaterally. There is no pneumothorax or pleural effusion. There is no focal osseous or soft tissue abnormality. XR/XR chest 2V IMPRESSION: Normal chest. Electronically signed by: Arian Mondragon MD 11/09/2024 10:58 AM EDT
--- NOTE | ~2024-11-09 | XR_ITS ---
EXAMINATION: XR SHOULDER 2 OR MORE VIEWS LEFT HISTORY: nontraumatic pain/ swelling COMPARISON: Comparison is made with the prior examinations of the left scapula and humerus dated 09/14/2024. FINDINGS: Three views of the left shoulder are submitted. Osseous mineralization is normal. There is no fracture or dislocation. The glenohumeral and acromioclavicular joint spaces are preserved. The soft tissues are unremarkable. XR/XR shoulder LT min 2V IMPRESSION: Unremarkable examination of the left shoulder. Electronically signed by: Mat Deleon MD 11/09/2024 10:57 AM EDT
[2024-11-09 10:20] VITALS: BP 118/84; PULSE 76; RESP 20; TEMP 37.1; O2SAT 97; BMI 28.7
[2024-11-09 10:47] LABS: MANUAL DIFF FLAG NO
[2024-11-09 10:54] LABS: Basophils Percent Auto 0.3 % (0-2); Eosinophils Percent Auto 0.5 % (0-4); Hemoglobin 10.6 g/dl (12.0-16.0); Imm Gran Abs Auto 0.02 X10*3/uL (0.00-0.03); Imm Gran Pct Auto 0.3 % (0.0-0.4); Lymphocytes Absolute Auto 2.7 X10*3/uL (1.2-4.9); Lymphocytes Percent Auto 36.5 % (20-40); Mean Corpuscular HGB Conc 33.1 g/dl (31.0-35.0); Mean Corpuscular Hemoglobin 27.9 pg (27.0-33.0); Mean Corpuscular Volume 84.2 fL (80.0-98.0); Mean Platelet Volume 10.1 fL (9.4-12.3); Monocytes Absolute Auto 0.4 X10*3/uL (0.1-1.2); Monocytes Percent Auto 5.2 % (2-11); Neutrophils Absolute Auto 4.2 x10*3/uL (2.0-8.3); Neutrophils Percent Auto 57.2 % (45-73); Platelet Count 354 X10*3/uL (160-400); Red Cell Distribution Width 15.7 % (11.0-16.0); White Blood Count 7.3 X10*3/uL (4.8-10.8)
[2024-11-09 10:55] LABS: Prothrombin Time 11.5 SEC (10.9-12.4)
[2024-11-09 11:05] LABS: Alanine Aminotransferase 31 U/L (0-31); Albumin Level 3.6 g/dL (3.5-5.0); Alkaline Phosphatase 112 U/L (39-117); Anion Gap 11 (12-20); Aspartate Amino Transferase 27 U/L (5-31); Bilirubin Total 0.2 mg/dL (0.0-1.0); Blood Urea Nitrogen 13 mg/dL (9-16); Carbon Dioxide 24 mmol/L (22-29); Chloride 109 mmol/L (96-108); Creatinine Clr Calc Pharmacy 120.5; Estimated Glomerular Filt Rate > 60; Glucose Random 93 mg/dL (60-115); Potassium 3.8 mmol/L (3.3-5.1); Sodium 140 mmol/L (135-145); Total Protein 8.9 g/dL (6.5-8.0)
[2024-11-09 11:09] LABS: B Type Natriuretic Peptide 108 pg/mL (<100)
[2024-11-09 11:11] LABS: Troponin-I High Sensitivity < 2.7 ng/L (<3.5-17.0)
[2024-11-09 12:26] VITALS: PULSE 62; RESP 18; TEMP 36.8; O2SAT 100
[2024-11-09 12:30] VITALS: BP 142/73; PULSE 62; RESP 20; TEMP 36.8; O2SAT 100
--- OUTSIDE RECORDS SUMMARY | 2024-11-09 12:43 | XMS_ITS | Encounter Summary ---
Author Organization [employer] Address 75 [facility] 7t [place] [address] Care Team Providers Care Photovoltaic Installation Technician Name Role Phone Mackenzie Estrada MD Primary Care Provider Reason for Visit * Reason Comments Med Refill Encounter Details Date Type Department Care Team ([facility] st Contact Info) Description 11/18/2023 Refill [facility] MEDICINE 230 [place], [place] [phone] Mackenzie Estrada MD 230 [place], [place] [phone] Pain in both hands Social History Tobacco [...] Description 12/11/2024 9:45 AM EDT Office Visit [address] [address] 12/28/2024 9:45 AM EDT Office Visit [address] [address] Mackenzie Estrada MD [address] [place] [address] documented as of this encounter Goals Goal Patient Goal Type Associated Problems Recent Progress Patient-Stated? Author Quit using tobacco (cigarettes, smokeless, etc) Tobacco Use No Corey Lin, PharmD documented as of this encounter Visit Diagnoses Diagnosis Pain in both hands documented in this encounter Care Teams Photovoltaic Installation Technician Relationship Specialty Start Date End Date Mackenzie Estrada MD [address] [place] [address] PCP - General Family Medicine 07/10/20 documented as of this encounter
--- OUTSIDE RECORDS SUMMARY | 2024-11-09 12:43 | XMS_ITS | Encounter Summary ---
Author Organization [employer] Address [address] [facility] [address] 7t [place] [address] Care Team Providers Care Driver Retraining Instructor Name Role Phone Mackenzie Estrada MD Primary Care Provider [phone] Reason for Visit * Reason Comments Med Refill Encounter Details Date Type Department Care Team ([facility] Contact Info) Description 10/10/2024 Refill [facility] 230 [place], [place] [phone] Kat Yo MD 230 [place] [address] Rheumatoid arthritis involving right hand with positive [...] the past 12 months, has t he [employer], gas, oil or water [employer] threatened to shut off services in your [...] Description 12/11/2024 9:45 AM EDT Office Visit [facility] [address] [place] [address] 12/28/2024 9:45 AM EDT Office Visit [facility] [address] [place] [address] Mackenzie Estrada MD [address] [place] [address] documented as of this encounter Goals Goal [...] documented as of this encounter Care Teams Driver Retraining Instructor Relationship Specialty Start Date End Date Mackenzei Estrada MD 230 [place] [address] PCP - General Family Medicine 07/10/20 documented as of this encounter
--- OUTSIDE RECORDS SUMMARY | 2024-11-09 12:43 | XMS_ITS | Encounter Summary ---
Author Organization [employer] Address [address] [facility] [address] 7t [place] [address] Care Team Providers Care Extractor Filler Name Role Phone Mackenzie Estrada MD Primary Care Provider [phone] Encounter Details Date Type Department Care Team (Late st Contact Info) Description 10/03/2023 Orders Only [facility] MEDICINE 230 [place], [place] [phone] Mackenzie Estrada MD 230 [place], [place] [phone] Bacterial vaginosis (Primary Dx) Social History Tobacco [...] Description 12/11/2024 9:45 AM EDT Office Visit [address] [address] 12/28/2024 9:45 AM EDT Office Visit [address] [address] Mackenzie Estrada MD [address] [place] [address] documented as of this encounter Goals Goal Patient Goal Type Associated Problems Recent Progress Patient-Stated? Author Quit using tobacco (cigarettes, smokeless, etc) Tobacco Use No Corey Lin, PharmD documented as of this encounter Visit Diagnoses Diagnosis Bacterial vaginosis- Primary Unspecified vaginitis and vulvovaginitis documented in this encounter Care Teams Extractor Filler Relationship Specialty Start Date End Date Mackenzie Estrada MD [address] [place] [address] PCP - General Family Medicine 07/10/20 documented as of this encounter
--- OUTSIDE RECORDS SUMMARY | 2024-11-09 12:43 | XMS_ITS | Encounter Summary ---
Author Organization [employer] Address 75 [facility] 7t [place] [address] Care Team Providers Care Clinical Safety Manager Name Role Phone Mackenzie Estrada MD Primary Care Provider [phone] Reason for Visit * Reason Comments Med Refill Encounter Details Date Type Department Care Team ([facility] Contact Info) Description 08/19/2024 Refill [facility] MEDICINE 230 [place], [place] [phone] Mackenzie Estrada MD 230 [place], [place] [phone] Social History Tobacco Use Types Packs/Day Years [...] Description 12/11/2024 9:45 AM EDT Office Visit [facility] [address] [place] [address] 12/28/2024 9:45 AM EDT Office Visit [address] [address] Mackenzie Estrada MD [address] [place] [address] documented as of this encounter Goals Goal [...] as of this encounter Care Teams Clinical Safety Manager Relationship Specialty Start Date End Date Mackenzie Estrada MD [address] [place] [address] PCP - General Family Medicine 07/10/20 documented as of this encounter
--- OUTSIDE RECORDS SUMMARY | 2024-11-09 12:43 | XMS_ITS | Encounter Summary ---
Author Organization [employer] Address [address] [facility] [address] 7t [place] [address] Care Team Providers Care Emergency Preparedness Manager Name Role Phone Mackenzie Estrada MD Primary Care Provider [phone] Encounter Details Date Type Department Care Team (Late st Contact Info) Description 12/13/2023 Orders Only [facility] MEDICINE 230 [place], [place] [phone] Mackenzie Estrada MD 230 [place], [place] [phone] Pain in both hands Social History Tobacco [...] Description 12/11/2024 9:45 AM EDT Office Visit [address] [address] 12/28/2024 9:45 AM EDT Office Visit [address] [address] Mackenzie Estrada MD [address] [place] [address] documented as of this encounter Goals Goal Patient Goal Type Associated Problems Recent Progress Patient-Stated? Author Quit using tobacco (cigarettes, smokeless, etc) Tobacco Use No Corey Lin, Bailey documented as of this encounter Visit Diagnoses Diagnosis Pain in both hands documented in this encounter Care Teams Emergency Preparedness Manager Relationship Specialty Start Date End Date Mackenzie Estrada MD [address] [place] [address] PCP - General Family Medicine 07/10/20 documented as of this encounter
--- OUTSIDE RECORDS SUMMARY | 2024-11-09 12:43 | XMS_ITS | Encounter Summary ---
Author Organization [employer] Address [address] [facility] [address] 7t [place] [address] Care Team Providers Care Hand Tier Name Role Phone Mackenzie Estrada MD Primary Care Provider Encounter Details Date Type Department Care Team (Late st Contact Info) Description 04/10/2024 Orders Only [facility] MEDICINE 230 [place], [place] [phone] Mackenzie Estrada MD 230 [place] [address] Social History Tobacco Use Types Packs/Day Years [...] 12/11/2024 9:45 AM EDT Office Visit [address] [address] 12/28/2024 9:45 AM EDT Office Visit [address] [address] Mackenzie Estrada MD [address] [place] [address] documented as of this encounter Goals Goal Patient Goal Type Associated Problems Recent Progress Patient-Stated? Author Quit using tobacco (cigarettes, smokeless, etc) Tobacco Use No Corey Lin, PharmD documented as of this encounter Visit Diagnoses Not on filedocumented in this encounter Care Teams Hand Tier Relationship Specialty Start Date End Date Mackenzie Estrada MD [address] [place] [address] PCP - General Family Medicine 07/10/20 documented as of this encounter
--- OUTSIDE RECORDS SUMMARY | 2024-11-09 12:43 | XMS_ITS | Encounter Summary ---
Author Organization [employer] Address [address] [facility] 7[address] [place] [address] Care Team Providers Care Clean Out Driller Helper Name Role Phone Mackenzie Estrada MD Primary Care Provider [phone] Encounter Details Date Type Department Care Team (Late st Contact Info) Description 06/03/2023 Orders Only [facility] [address] [place], [place] [phone] Mackenzie Estrada MD [address] [place], [place] [phone] Pain in both hands Social History Tobacco [...] Description 12/11/2024 9:45 AM EDT Office Visit [facility] MEDICINE [address] [place] [phone] 12/28/2024 9:45 AM EDT Office Visit [facility] MEDICINE [address] [place] [phone] Mackenzie Estrada MD [address] [place] [phone] documented as of this encounter Goals Goal [...] both hands INFLUENZA A B2 ID NOW (ZipList) Routine 06/03/2023 4:34 PM EDT Pain in both hands COVID-19 ID NOW (CORONA) Routine 06/03/2023 4:34 PM EDT Pain in both hands documented in this encounter Results * XR Chest 2 Views (06/25/2023 12:15 PM EST) Anatomical Region Laterality Modality Chest Radiographic Rin ging 06/25/2023 12:1 5 PM EST Narrative 06/03/2023 5:47 PM EDT ? [facility] ?[address] ?[place] [address] ?XRay Report ? Signed ? Patient: Ovidio Lacy,Ginette ?MR ?? #: [id number] ? : 1975 ?Acct:[id number] ? Age/Sex: 47 / F ?ADM Date: 06/25/23 ? Loc: HO.ED ? Attending Dr: ? Ordering Physician: Treasure Clemons ?? Date of Service: 06/25/23 ?? Procedure(s): XR chest 2V ?? Accession Number(s): [id number] ? cc: Mackenzie Estrada; Treasure Clemons ? [...] 1230 ? DD/ 1215 ? TD/TT: ? Audit Mgr: MSM ? Procedure Note Lorin, Image - 06/25/[address] [address] XRay Report Signed Patient: Ginette ArceoMR #: [id number] : 1975Acct:[id number] Age/Sex: 47 / FADM Date: 06/25/23 Loc: HO.ED Attending Dr: Ordering Physician: Treasure Clemons Date of Service: 06/25/23 Procedure(s): XR chest 2V Accession Number(s): [id number] cc: Mackenzie Estrada; Treasure Clemons EXAMINATION: XR [...] in OV> 06/25/23 1230 DD/ 1215 TD/TT: Audit Mgr: MAGGIE [facility] External Provider IMG XR PROCEDURES Edited Result - Final * (ABNORMAL) Urinalysis, Complete, with Reflex to Culture (06/03/2023 4:49 PM EDT) Color Urine Yellow [facility] Appearance Urine Clear [facility] PH 5.5 5.0 - 9.0 [facility] Glucose Urine UA Negative Negative mg/dL [facility] Urine Blood Large (3+)(A) Negative [facility] Specific [place] - Urine 1.025 1.005 - 1.025 [facility] Urine Protein Negative Neg-Trace mg/dL [facility] Urine Ketones Negative Negative mg/dL [facility] Nitrite Urine Negative Negative [facility] Leukocyte Esterase Urine Negative Negative [facility] RBC Urine >20(A) 0 - 2 /HPF [facility] Urine WBC 0-5 0 - 5 /HPF [facility] Urine Squamous Epithelial Cell 11-20 0 - 2 /HPF [facility] Urine Bacteria 1+ None Seen [facility] Hyaline Casts, Urine 0-2 0 - 2 /LPF [facility] 06/03/2023 4:49 PM EDT 06/03/2023 4:52 PM EDT Narrative [facility] - 06/03/2023 5:00 PM EDT Urine, Clean Catch us Generic External Data Provider LAB URINE ORDERAB LES Final Result Performing Organization Address [facility]ZIP Co de Phone Number [facility] [address] [place] [phone] * (ABNORMAL) Urinalysis w/reflex microscopic (06/03/2023 4:49 PM EDT) Color Urine Yellow [facility] Appearance Urine Clear [facility] PH 5.5 5.0 - 9.0 [facility] Glucose Urine UA Negative Negative mg/dL [facility] Urine Blood Large (3+)(A) Negative [facility] Specific [place] - Urine 1.025 1.005 - 1.025 [facility] Urine Protein Negative Neg-Trace mg/dL [facility] Urine Ketones Negative Negative mg/dL [facility] Nitrite Urine Negative Negative [facility] Leukocyte Esterase Urine Negative Negative [facility] 06/03/2023 4:49 PM EDT 06/03/2023 4:52 PM EDT Narrative [facility] - 06/03/2023 4:57 PM EDT Urine, Clean Catch us Generic External Data Provider LAB URINE ORDERAB LES Final Result Performing Organization Address [facility]/ZIP Co de Phone Number [facility] [address] [place] [phone] * Influenza A B2 ID NOW (Corona) (06/03/2023 4:34 PM EDT) IDNOW SERIAL# [id number] [facility] Influenza A Negative Negative [facility] Influenza B2 Negative Negative [facility] Influenza A B2 Note See Note [facility] Comment:The Corona ID NOW In [...] - GENERAL ORDERABLES Final Result [facility] [address] [place] [phone] * COVID-19 ID NOW (ZipList) (06/03/2023 4:34 PM EDT) IDNOW SERIAL# [id number] [facility] COVID-19 TEST Negative Negative [facility] COVID-19 NOTE See Note [facility] Comment: Results are for the identification of SARS-CoV2 RNA. TheSARS-CoV2 RNA is generally detectable in respiratory samplesduring the acute phase of infection. Positive results areindicative of the presence of SARS-CoV-2 RNA; clinicalcorrelation with patient history and other diagnosticinformation is necessary to determine patient infectionstatus. Positive results do not rule out bacterial infectionor co- infection with other viruses.Testing facilities within the [facility] are required to report all positive [...] use by authorized laboratories.Testing performed on the [employer] ID NOW utilizing NAAT. 06/03/2023 4:34 PM EDT 06/03/2023 4:40 PM EDT us Generic External Data Provider LAB MOLECULAR ARNAV GNOSTICS ORDERABLES Final Result [facility] [address] [place] [phone] [phone] documented in this encounter Visit Diagnoses Diagnosis Pain in both hands documented in this encounter Care Teams Clean Out Driller Helper Relationship Specialty Start Date End Date Mackenzie Estrada MD [address] [place] [phone] PCP - General Family Medicine 07/10/20 documented as of this encounter
--- OUTSIDE RECORDS SUMMARY | 2024-11-09 12:43 | XMS_ITS | Encounter Summary ---
Author Organization [employer] Address [address] [facility] [address] [place] [address] Care Team Providers Care Product Safety Head Name Role Phone Mackenzie Estrada MD Primary Care Provider [phone] Encounter Details Date Type Department Care Team ([facility] Contact Info) Description 11/09/2024 Orders Only GENERIC EXTERNAL DATA DEPARTMENT Provider, Generic External Data Social History Tobacco Use Types Packs/Day Years [...] 9:45 AM EDT Office Visit [facility] MEDICINE [address] [place] [address] 12/28/2024 9:45 AM EDT Office Visit [facility]INE [address] [place] [phone] Mackenzie Estrada MD [address] [place] [address] documented as of this encounter Goals Goal Patient Goal Type Associated Problems Recent Progress Patient-Stated? Author Quit using tobacco (cigarettes, smokeless, etc) Tobacco Use No Corey Lin, PharmD documented as of this encounter Procedures Procedure Name Priority Date/Time Associated Diagnosis Comments XR SHOULDER 2+ VIEWS LEFT Routine 11/09/2024 10:45 AM EDT XR CHEST 2 VIEWS Routine 11/09/2024 10:4 5 AM EDT HIGH SENSITIVITY TROPONIN I Routine 11/09/2024 10:36 AM EDT CBC WITH AUTO DIFFERENTIAL Routine 11/09/2024 10:36 AM EDT PROTHROMBIN TIME-INR Routine 11/09/2024 10:36 AM EDT B TYPE NATRIURETIC PEPTIDE (BNP) Routine 11/09/2024 10:36 AM EDT MAGNESIUM Routine 11/09/2024 10:36 AM EDT COMPREHENSIVE METABOLIC PANEL Routine 11/09/2024 10:36 AM EDT documented in this encounter Results * XR Chest 2 Views (11/09/2024 10:45 AM EDT) Anatomical Region Laterality Modality Chest Radiographic Rin ging 11/09/2024 10:4 5 AM EDT Narrative 11/09/2024 11:00 AM EDT ? [facility] ?[address] ?[place] [address] ?XRay Report ? Signed ? Patient: Ginette Arceo ?MR ?? #: [id number] ? : 1975 ?Acct:[id number] ? Age/Sex: 49 / F ?ADM Date: 11/09/24 ? Loc: HO.ED ? Attending Dr: ? Ordering Physician: Generic ED Physician ?? Date of Service: 11/09/24 ?? Procedure(s): XR chest 2V ?? Accession Number(s): [id number] ? cc: Generic ED Physician; Mackenzie Estrada ? EXAMINATION: ?? XR CHEST ? CLINICAL INFORMATION: ?? Chest pain; pain when lifting arm. ? COMPARISON: ?? 07/27/2024, 06/08/2024. ? TECHNIQUE: ?? 2 views of the chest were obtained. ? FINDINGS: ?? The cardiac, hilar, and mediastinal contours are normal. ? The lungs are clear bilaterally. There is no pneumothorax or pleural ?? effusion. ? There is no focal osseous or soft tissue abnormality. ? XR/XR chest 2V ?? IMPRESSION: ?? Normal chest. ? Electronically signed by: ??Arian Mondragon MD ??11/09/2024 10:58 AM EDT RP ? Dictated By: ?Arian Mondragon MD ? Signed By: ?<Electronically signed by Arian Mondragon MD in OV> ?11/09/24 1058 ? DD/ 1045 ? TD/TT: 11/09/24 1050 ? Machine Cementer And Folder: ? Procedure Note Donotuseinterpreter, Image - 11/09/[address] [address] XRay Report Signed Patient: Ginette ArceoMR #: [id number] : 1975Acct:[id number] Age/Sex: 49 / FADM Date: 11/09/24 Loc: HO.ED Attending Dr: Ordering Physician: Generic ED Physician Date of Service: 11/09/24 Procedure(s): XR chest 2V Accession Number(s): [id number] cc: Generic ED Physician; Mackenzie Estrada EXAMINATION: XR CHEST CLINICAL INFORMATION: Chest pain; pain when lifting arm. COMPARISON: 07/27/2024, 06/08/2024. TECHNIQUE: 2 views of the chest were obtained. FINDINGS: The cardiac, hilar, and mediastinal contours are normal. The lungs are clear bilaterally. There is no pneumothorax or pleural effusion. There is no focal osseous or soft tissue abnormality. XR/XR chest 2V IMPRESSION: Normal chest. Electronically signed by: Arian Mondragon MD 11/09/2024 10:58 AM EDT Dictated By: Arian Mondragon MD Signed By: <Electronically signed by Arian Mondragon MD in OV> 11/09/24 1058 DD/ 1045 TD/TT: 11/09/24 1050 Machine Cementer And Folder: [facility] External Provider IMG XR PROCEDURES Final Result * XR Shoulder 2+ Views Left (11/09/2024 10:45 AM EDT) Anatomical Region Laterality Modality Upper Extremities, Shoulder Left Radi ographic Imaging 11/09/2024 10:4 5 AM EDT Narrative 11/09/2024 10:59 AM EDT ? [place] [facility] ?[address] ?[place] [address] ?XRay Report ? Signed ? Patient: Ovidio Lacy,Ginette ?MR ?? #: [id number] ? : 1975 ?Acct:[id number] ? Age/Sex: 49 / F ?ADM Date: 11/09/24 ? Loc: HO.ED ? Attending Dr: ? Ordering Physician: Generic ED Physician ?? Date of Service: 11/09/24 ?? Procedure(s): XR shoulder LT min 2V ?? Accession Number(s): [id number] ? cc: Generic ED Physician; Mackenzie Estrada ? EXAMINATION: ??XR SHOULDER 2 OR MORE VIEWS LEFT ? HISTORY: nontraumatic pain/ swelling ? COMPARISON: Comparison is made with the prior examinations of the left ?? scapula and humerus dated 09/14/2024. ? FINDINGS: ? Three views of the left shoulder are submitted. ??Osseous mineralization ?? is normal. ??There is no fracture or dislocation. ??The glenohumeral and ?? acromioclavicular joint spaces are preserved. ??The soft tissues are ?? unremarkable. ? XR/XR shoulder LT min 2V ?? IMPRESSION: ? Unremarkable examination of the left shoulder. ? Electronically signed by: ??Mat Deleon MD ??11/09/2024 10:57 AM EDT ?? RP ? Dictated By: ?Mat Deleon MD ? Signed By: ?<Electronically signed by Mat Deleon MD in OV> ?11/09/24 1057 ? DD/ 1045 ? TD/TT: 11/09/24 1050 ? Machine Cementer And Folder: ? Procedure Note Deepa Padgett - 11/09/[address] [address] XRay Report Signed Patient: Ginette ArceoMR #: [id number] : 1975Acct:[id number] Age/Sex: 49 / FADM Date: 11/09/24 Loc: HO.ED Attending Dr: Ordering Physician: Generic ED Physician Date of Service: 11/09/24 Procedure(s): XR shoulder LT min 2V Accession Number(s): [id number] cc: Generic ED Physician; Mackenzie Estrada EXAMINATION: XR SHOULDER 2 OR MORE VIEWS LEFT HISTORY: nontraumatic pain/ swelling COMPARISON: Comparison is made with the prior examinations of the left scapula and humerus dated 09/14/2024. FINDINGS: Three views of the left shoulder are submitted. Osseous mineralization is normal. There is no fracture or dislocation. The glenohumeral and acromioclavicular joint spaces are preserved. The soft tissues are unremarkable. XR/XR shoulder LT min 2V IMPRESSION: Unremarkable examination of the left shoulder. Electronically signed by: Mat Deleon MD 11/09/2024 10:57 AM EDT RP Dictated By: Mat Deleon MD Signed By: <Electronically signed by Mat Deleon MD in OV> 11/09/24 1057 DD/ 1045 TD/TT: 11/09/24 1050 Machine Cementer And Folder: [facility] External Provider IMG XR PROCEDURES Final Result * High Sensitivity Troponin I (11/09/2024 10:36 AM EDT) [facility] TROPONIN I HIGH SENSITIVITY <2.7 <3.5 - 17.0 ng/L [facility] Comment:The Shea high sens itivity Troponin-I results should beused in conjunction with other diagnostic information suchas ECG, clinical observations and information, and patientsymptoms to aid in the diagnosis of [place]. 11/09/2024 10:3 6 AM EDT 11/09/2024 10:45 AM EDT Generic External Data Provider LAB BLOOD ORDERAB LES Final Result [facility] [address] [place] [address] [phone] * (ABNORMAL) B Type Natriuretic Peptide (BNP) (11/09/2024 10:36 AM EDT) Pathologist [facility] B Type Natriuretic Peptide 108(H) <100 pg/mL [facility] 11/09/2024 10:3 6 AM EDT 11/09/2024 10:45 AM EDT us Generic External Data Provider LAB BLOOD ORDERAB LES Final Result Performing Organization Address City/[facility]/ZIP Co de Phone Number [facility] [address] [place] [phone] * Magnesium (11/09/2024 10:36 AM EDT) Magnesium 2.0 1.6 - 2.6 mg/dL [facility] 11/09/2024 10:3 6 AM EDT 11/09/2024 10:45 AM EDT Generic External Data Provider LAB BLOOD ORDERAB LES Final Result Performing Organization Address [facility] Co de Phone Number [facility] [address] [place] [phone] * (ABNORMAL) Comprehensive Metabolic Panel (11/09/2024 10:36 AM EDT) Sodium 140 135 - 145 mmol/L [facility] Potassium 3.8 3.3 - 5.1 mmol/L [facility] Chloride 109(H) 96 - 108 mmol/L [facility] Carbon Dioxide 24 22 - 29 mmol/L [facility] Anion Gap 11(L) 12 - 20 [facility] Urea Nitrogen (BUN) 13 9 - 16 mg/dL [facility] Creatinine, Serum 0.59 0.5 - 1.4 mg/dL [facility] Creatinine Clr Calc Pharmacy 120.5 [facility] Comment:Provided height and weight: 165.1 cm,78.3 kg.eGFR (calculated from the MDRD study equation) and eCrCl(calculated from the Cockcroft-Gault equation) are based ondifferent parameters and may not yield comparable results.If eCrCl result is absurd, please check patient'sheight/weight. Estimated Glomerular Filt Rate >60 [facility] Comment:Chronic Kidney Disea se: Estimated GFR < 60 mL/min/[id number] Kidney Disease: Estimated GFR < 15 mL/min/1.73m2 Glucose 93 60 - 115 mg/dL [facility] Calcium 10.0 8.4 - 10.2 mg/dL [facility] Bilirubin, Total 0.2 0.0 - 1.0 mg/dL [facility] Aspartate Amino Transferase 27 5 - 31 U/L [facility] Alanine Aminotransferase 31 0 - 31 U/L [facility] Total Protein 8.9(H) 6.5 - 8.0 g/dL [facility] Albumin Level 3.6 3.5 - 5.0 g/dL [facility] Alkaline Phosphatase 112 39 - 117 U/L [facility] 11/09/2024 10:3 6 AM EDT 11/09/2024 10:45 AM EDT us Generic External Data Provider LAB BLOOD ORDERAB LES Final Result Performing Organization Address [facility] de Phone Number [facility] [address] [place] [phone] * Prothrombin Time-INR (11/09/2024 10:36 AM EDT) Prothrombin Time 11.5 10.9 - 12.4 SEC [facility] INTERNATIONAL NORM RATIO 1.0 0.9 - 1.1 [facility] Comment:INTERNATIONAL NORMAL IZED RATIO (INR) REFERENCE RANGES Reference RangeFor patients not on anticoagulant therapy: 0.9 - 1.1INR ranges for oral anticoagulanttherapy:For prevention and treatment of venous thrombosis and pulmonary embolism: 2.0 - 3.0For acute myocardial infarction with aspirin therapy: 2.0 - 3.0For acute myocardial infarction without aspirin therapy: 3.0 - 4.0For patients with mechanical prosthetic heart valves: 2.5 - 3.5 11/09/2024 10:3 6 AM EDT 11/09/2024 10:45 AM EDT us Generic External Data Provider LAB BLOOD ORDERAB LES Final Result Performing Organization Address [facility] Co de Phone Number [facility] [address] [place] [phone] [phone] * (ABNORMAL) CBC auto differential (11/09/2024 10:36 AM EDT) White Blood Count 7.3 4.8 - 10.8 X10*3/uL [facility] Red Blood Count 3.80(L) 4.20 - 5.50 X10*6/uL [facility] Hemoglobin 10.6(L) 12.0 - 16.0 g/dl [facility] Hematocrit 32.0(L) 37.0 - 47.0 % [facility] Mean Corpuscular Volume 84.2 80.0 - 98.0 fL [facility] Mean Corpuscular Hemoglobin 27.9 27.0 - 33.0 pg [facility] Mean Corpuscular HGB Conc 33.1 31.0 - 35.0 g/dl [facility] Red Cell Distribution Width 15.7 11.0 - 16.0 % [facility] Platelet Count 354 160 - 400 X10*3/uL [facility] Mean Platelet Volume 10.1 9.4 - 12.3 fL [facility] Neutrophils Percent Auto 57.2 45 - 73 % [facility] Imm Gran Pct Auto 0.3 0.0 - 0.4 % [facility] Lymphocytes Percent Auto 36.5 20 - 40 % [facility] Monocytes Percent Auto 5.2 2 - 11 % [facility] Eosinophils Percent Auto 0.5 0 - 4 % [facility] Basophils Percent Auto 0.3 0 - 2 % [facility] NRBC Pct Auto 0.0 0.0 - 0.2 /100WBC [facility] Neutrophils Absolute Auto 4.2 2.0 - 8.3 x10*3/uL [facility] Imm Gran Abs Auto 0.02 0.00 - 0.03 X10*3/uL [facility] Lymphocytes Absolute Auto 2.7 1.2 - 4.9 X10*3/uL [facility] Monocytes Absolute Auto 0.4 0.1 - 1.2 X10*3/uL [facility] Eosinophils Absolute Auto 0.0 0.0 - 0.4 X10*3/uL [facility] Basophils Absolute Auto 0.0 0.0 - 0.2 X10*3/uL [facility] NRBC Abs Auto 0.000 0.0 - 0.012 X10*3/uL [facility] 11/09/2024 10:3 6 AM EDT 11/09/2024 10:45 AM EDT us Generic External Data Provider LAB BLOOD ORDERAB LES Final Result [facility] [address] [place] [address] [phone] documented in this encounter Visit Diagnoses Not on filedocumented in this encounter Additional Health Concerns Assessment Noted Time PHQ-9 Depression Total Score: 2 04/30/20 24 10:41 AM EDT documented as of this encounter Care Teams Product Safety Head Relationship Specialty Start Date End Date Mackenzie Estrada MD [address] [place] [address] PCP - General Family Medicine 07/10/20 documented as of this encounter
--- OUTSIDE RECORDS SUMMARY | 2024-11-09 12:43 | XMS_ITS | Encounter Summary ---
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 [...] the past 12 months, has t he [employer] gas, oil or water company threatened to [...] Description 12/11/2024 9:45 AM EDT Office Visit [facility] [address] [place] [phone] 12/28/2024 9:45 AM EDT Office Visit [facility] [address] [place] [phone] Mackenzie Estrada MD [address] [place] [phone] documented as of this encounter Goals Goal [...] documented as of this encounter Care Teams Public Events Facilities Rental Manager Relationship Specialty Start Date End Date Mackenzie Estrada MD [address] [place] [address] PCP - General Family Medicine 07/10/20 documented as of this encounter
--- OUTSIDE RECORDS SUMMARY | 2024-11-09 12:43 | XMS_ITS | Encounter Summary ---
Author Organization [employer] Address [address] [facility] [address]t [place] [address] Care Team Providers Care Strainer Cleaner Name Role Phone Mackenzie Estrada MD Primary Care Provider [phone] Reason for Visit * Reason Comments Med Refill Encounter Details Date Type Department Care Team ([facility] st Contact Info) Description 02/08/2023 Refill [facility] [address] [place] [address] Mackenzie Estrada MD [address] [place] [address] Pain in both hands Social History Tobacco [...] Description 12/11/2024 9:45 AM EDT Office Visit [address] [address] 12/28/2024 9:45 AM EDT Office Visit [address] [phone] Mackenzie Estrada MD [address] [place] [phone] documented as of this encounter Visit Diagnoses Diagnosis Pain in both hands documented in this encounter Care Teams Strainer Cleaner Relationship Specialty Start Date End Date Mackenzie Estrada MD [address] [place] [phone] PCP - General Family Medicine 07/10/20 documented as of this encounter
--- OUTSIDE RECORDS SUMMARY | 2024-11-09 12:43 | XMS_ITS | Encounter Summary ---
Author Organization [facility] Address [address] [facility] 7t [place] [address] Care Team Providers Care Double Cut Sawyer Name Role Phone Mackenzie Estrada MD Primary Care Provider [phone] Encounter Details Date Type Department Care Team ([facility] Contact Info) Description 03/04/2023 Orders Only [facility] [address] [place] [phone] Kat Yo MD [address] [place] [address] [phone] Social History Tobacco Use Types Packs/Day Years [...] Upcoming Encounters Date Type Department Care Team ([facility] Contact Info) Description 12/11/2024 9:45 AM EDT Office Visit [facility] [address] [place] [address] [phone] 12/28/2024 9:45 AM EDT Office Visit [facility] [address] [place] [phone] Mackenzie Estrada MD [address] [place] [place] [address] [phone] documented as of this encounter Visit Diagnoses Not on filedocumented in this encounter Care Teams Double Cut Sawyer Relationship Specialty Start Date End Date Mackenzie Estrada MD [address] [place] [address] PCP - General Family Medicine 07/10/20 documented as of this encounter
--- OUTSIDE RECORDS SUMMARY | 2024-11-09 12:43 | XMS_ITS | Clinical Summary ---
Author Organization [employer] Address [address] [facility] 7[address] [place] [address] Care Team Providers Care Motor Vehicle Clerk Name Role Phone Mackenzie Estrada MD Primary Care Provider [phone] Allergies Active Allergy Reactions Criticality Noted Date Comments Olla (Diagnostic) 05/23/2020 Olla Oil Anaphylaxis High 07/19/2022 Morphine 06/02/2015 Other [...] 05/26/20 22 Active Sharps Container (GUARDIAN Sharps Compliance Review Specialist) misc 06/15/20 22 Active Vitamin D High Potency 25 MCG (1000 UT) capsule Take 25 mcg by mouth in the morning. 12/11/19 23 Active beta carotene (vitamin A) 3 MG (93162 UT) capsule Take by mouth in the [...] MOUTH EVERY WEEK 02/24/20 24 Active Umeclidinium [place] (Incruse Ellipta) 62.5 MCG/ACT aerosol powderIndicati ons:Subacute [...] MG tabletIndicati ons:NSTEMI (non-ST elevated myocardial infarction) ([facility]) Take 1 tablet (75 mg) by mouth Once per day. 90 tablet 3 09/28/19 25 026 Active oxyCODONE-acet aminophen (Percocet) 7.5-325 MG tabletIndicati ons:Osteonecro sis of hip with collapse of femoral head present on x-ray ([facility]) Take 1 tablet by mouth every 6 [...] 11/07/19 25 Active neomycin-polym yxin-hydrocort isone (Cortisporin) 3.5-30593-8 otic suspensionIndi cations:Acute otitis externa of both [...] days. 28 capsule 11/07/19 25 025 Active Eliquis 5 MG tablet TAKE 1 [...] not trigger notification to Pharmacy)) predniSONE (Deltasone) 50 MG tabletIndicati ons:Rheumatoid arthritis [...] at 09/2024 refill Indication: Rheumatoid arthritis Last [employer]IGHT [employer] INSPECTOR Agreement: 06/12/24 Tier: II (Q3 months visits), Dr. Estrada 08/15/24 Assessment & Plan (11/06/2024 1:49 PM EDT): Timeline: - 11/06/24: Group - Utox/pill count as expected Assessment & Plan (09/28/2024 8:21 AM EST): Has Narcan at home [employer] INSPECTOR agreement UTD Seeing group pain visits for [employer] INSPECTOR Assessment & Plan (09/11/2024 5:03 PM EST): [...] factor 01/26/2024 Overview (08/14/2024): - Following with [facility] Rheum: Dr. Castro Assessment & Plan (01/26/2024 [...] to go back to her previous dose, [employer]IGHT [employer] INSPECTOR nurse informed about my plan, I instructed [...] week as per Rheumatology. 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 0 Personal history of Hodgkin lymphoma 05/09/2020 Axillary lymphadenopathy 05/09/2020 Acute deep vein thrombosis ( DVT) of brachial vein of right upper extremity 03/07/2020 Lymphadenopathy, generalized 03/07/2020 Migraine without status migrainosus, not intract able 12/06/2017 Paresthesia and pain of left extremity 8 Gastroesophageal reflux disease 06/03/2017 Rheumatoid arthritis involving multiple sites Overview (09/11/2024): - Following with [facility] Rheumatoloy Assessment & Plan (11/06/2024 1:48 PM [...] PM EDT): Primarily managed by Rheum at [facility] Continue to take Oulimiant 2mg, Methotrexate 20mg [...] not as effective -I spoke today with [facility] staff today ( Shahla) and confirmed they do have remdesivir which will be the best options for tx for this pt , ER at [facility] are expecting pt for evaluation. Also [...] Encounters Date Type Department Care Team Description 11/09/2024 Orders Only GENERIC EXTERNAL DATA DEPARTMENT Provider, Generic External Data 11/06/2024 9:45 AM EDT Office Visit [facility] [address] [place] [address] Sisi Kennedy FNP Rheumatoid arthritis involving multiple sites with positive rheumatoid factor ([facility]) (Primary Dx); Long-term current use of opiate analgesic; Chronic low back pain, unspecified back pain laterality, unspecified whether sciatica present; Cellulitis of upper extremity, unspecified laterality; Acute otitis externa of both ears, unspecified type 11/06/2024 Orders Only [facility] External Provider, [facility] 11/06/2024 Travel 11/02/2024 Refill [facility] [address] [place] [address] Mackenzie Estrada MD 11/01/2024 Telephone [facility] [address] [place] [address] Mackenzie Estrada MD Nicotine Dependence (Supports offered- [facility] smoking awareness group, meds) 10/24/2024 Telephone [facility] [address] [place] [address] Mackenzie Estrada MD Nurse Triage 10/15/2024 Refill [facility] [address] [place] [address] Mackenzie Estrada MD 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 ([facility]) 10/12/2024 Population Health Risk Score [facility] (C3) Department [address] [phone] Provider, Population Health Generic 10/11/2024 1:00 PM EDT Office Visit [facility] [address] [place] [address] Libra Linder, OD Chorioretinal scar, left (Primary Dx); White without pressure of peripheral retina of both eyes; Generalized headaches; MGD (meibomian gland dysfunction); Early cataracts, bilateral; Presbyopia of both eyes 10/11/2024 Travel 10/10/2024 Refill [facility] [address] [place] [phone] Kat Yo MD 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 (CMS/HCC); Inflammatory arthritis 10/10/2024 Refill [facility] [address] [place] [phone] Mackenzie Estrada MD 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 ([facility]/HCC) 10/09/2024 11:20 AM EDT Office Visit [facility] [address] [place] [phone] Kat Yo MD Rheumatoid arthritis flare (CMS/HCC) (Primary Dx); 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 (CMS/HCC); Inflammatory arthritis 10/02/2024 Telephone [facility] [address] [place] [address] [phone] Mackenzie Estrada MD 10/01/2024 Telephone [facility] [address] [place] [phone] Libra Linder, OD 09/24/2024 3:15 PM EST Office Visit [facility] [address] [place] [phone] Mackenzie Estrada MD Rheumatoid arthritis involving multiple sites with positive rheumatoid factor ([facility]/HCC) (Primary Dx); Dietary counseling; Exercise counseling; Class 1 obesity with serious comorbidity and body mass index (BMI) of 33.0 to 33.9 in adult, unspecified obesity type; Nodular sclerosis Hodgkin lymphoma of lymph nodes of multiple regions (CMS/HCC); NSTEMI (non-ST elevated myocardial infarction) ([facility]/HCC); 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 ([facility]/HCC); Class 1 obesity; Chronic low back pain, unspecified back pain laterality, unspecified whether sciatica present; Long-term current use of opiate analgesic; Screening mammogram for breast cancer 09/24/2024 Travel 09/24/2024 Refill [facility] [address] [place] [address] Mackenzie Estrada MD Gastroesophageal reflux disease with hiatal hernia 09/19/2024 Refill [facility] [address] [place] [phone] Kaylene Samano RN 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 ([facility]) 09/18/2024 Refill [facility] [address] [place], [place] [phone] Mackenzie Estrada MD 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 ([facility]) 09/17/2024 Refill [facility] [address] [place] [phone] Mackenzie Estrada MD 09/14/2024 Orders Only [facility] External Provider, [facility] 09/11/2024 9:45 AM EST Office Visit [facility] [address] [place] [phone] Sisi Kennedy FNP Rheumatoid arthritis involving multiple sites with positive rheumatoid factor ([facility]) (Primary Dx); Long-term current use of opiate analgesic 09/11/2024 Travel 09/10/2024 Patient Outreach [address] [address] Mackenzie Estrada MD Care Coordination (CH[facility] outreach for SDOH PT-1 and food needs-referral completed /) 09/10/2024 Patient Outreach [address] [address] Mackenzie Estrada MD Pre-visit Planning (SDOH screening negative and tobacco screening negative) 09/07/2024 Refill [facility] [address] [place] [phone] Mackenzie Estrada MD 08/22/2024 Refill [facility] [address] [place] [phone] Mackenzie Estrada MD 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 ([facility]) 08/19/2024 Refill [facility] [address] [place] [address] Mackenzie Estrada MD 08/16/2024 Telephone [facility] [address] [place] [address] Hanny Lacy [place] Appointment Request 08/15/2024 Telephone [facility] [address] [place] [address] Mackenzie Estrada MD Durable Medical Equipment (10 In 1 pillow ) 08/14/2024 9:45 AM EST Office Visit [facility] [address] [place] [address] Sisi Kennedy FNP Long-term current use of opiate analgesic (Primary Dx); 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 ([facility]); Inflammatory arthritis 08/14/2024 Travel from Last 3 [...] Frequency of Binge Drinking Not on file 1009/2022 Score 0 05/02/2023 Depression Answer Date Recorded [...] Description 12/11/2024 9:45 AM EDT Office Visit [facility] [address] [place] [address] 12/28/2024 9:45 AM EDT Office Visit [facility] [address] [place] [address] [phone] Mackenzie Estrada MD [address] [place] [address] Health Maintenance Due Date Last Done Comments [...] Diagnosis Comments XR CHEST 2 VIEWS Routine 11/09/2024 10:4 5 AM EDT XR SHOULDER 2+ VIEWS LEFT Routine 11/09/2024 10:45 AM EDT HIGH SENSITIVITY TROPONIN I Routine 11/09/2024 10:36 AM EDT B TYPE NATRIURETIC PEPTIDE (BNP) Routine 11/09/2024 10:36 AM EDT MAGNESIUM Routine 11/09/2024 10:36 AM EDT COMPREHENSIVE METABOLIC PANEL Routine 11/09/2024 10:36 AM EDT PROTHROMBIN TIME-INR Routine 11/09/2024 10:36 AM EDT CBC WITH AUTO DIFFERENTIAL Routine 11/09/2024 10:36 AM EDT VASC US LOWER EXTREMITY ARTERIAL DUPLEX BILATERAL WITH SUGAR Routine 11/06/2024 1:05 PM EDT POCT GALLO-14 URINE DRUG SCREEN Routine 11/06/2024 10:46 AM EDT Rheumatoid arthritis involving multiple sites with positive rheumatoid factor ([facility]) Long-term current use of opiate analgesic XR [...] Relevant to Health Maintenance Results * XR Shoulder 2+ Views Left (11/09/2024 10:45 AM EDT) Anatomical Region Laterality Modality Upper Extremities, Shoulder Left Radi ographic Imaging 11/09/2024 10:4 5 AM EDT Narrative 11/09/2024 10:59 AM EDT ? [facility] ?[address] ?[place] [address] ?XRay Report ? Signed ? Patient: Ovidio Lacy,Ginette ?MR ?? #: [id number] ? : 1975 ?Acct:[id number] ? Age/Sex: 49 / F ?ADM Date: 11/09/24 ? Loc: HO.ED ? Attending Dr: ? Ordering Physician: Generic ED Physician ?? Date of Service: 11/09/24 ?? Procedure(s): XR shoulder LT min 2V ?? Accession Number(s): [id number] ? cc: Generic ED Physician; Mackenzie Estrada [...] ??Mat Deleon MD ??11/09/2024 10:57 AM EDT ? Dictated By: ?Mat Deleon MD ? Signed By: ?<Electronically signed by Mat Deleon MD in OV> ?11/09/241056 ? DD/ 1045 ? TD/TT: 11/09/24 1050 ? Events And Promotions Assistant: ? Procedure Note Doncharwilmarbhumiter, Image - 11/09/2024 [place] [address] XRay Report Signed Patient: Ginette ArceoMR #: [id number] : 1975Acct:[id number] Age/Sex: 49 / FADM Date: 11/09/24 Loc: HO.ED Attending Dr: Ordering Physician: Generic ED Physician Date of Service: 11/09/24 Procedure(s): XR shoulder LT min 2V Accession Number(s): [id number] cc: Generic ED Physician; Mackenzie Estrada EXAMINATION: [...] Mat Deleon MD 11/09/2024 10:57 AM EDT Dictated By: Mat Deleon MD Signed By: <Electronically signed by Mat Deleon MD in OV> 11/09/24 1057 DD/ 1045 TD/TT: 11/09/24 1050 Events And Promotions Assistant: us [facility] External Provider IMG XR PROCEDURES Final Result * XR Chest 2 Views (11/09/2024 10:45 AM EDT) Anatomical Region Laterality Modality Chest Radiographic Rin ging 11/09/2024 10:4 5 AM EDT Narrative 11/09/2024 11:00 AM EDT ? [facility] ?[address] ?[place], [place] [address] ?XRay Report ? Signed ? Patient: Ovidio LacyGinette ?MR ?? #: [id number] ? : 1975 ?Acct:[id number] ? Age/Sex: 49 / F ?ADM Date: 11/09/24 ? Loc: HO.ED ? Attending Dr: ? Ordering Physician: Generic ED Physician ?? Date of Service: 11/09/24 ?? Procedure(s): XR chest 2V ?? Accession Number(s): [id number] ? cc: Generic ED Physician; Mackenzie Estrada [...] DD/ 1045 ? TD/TT: 11/09/24 1050 ? Events And Promotions Assistant: ? Procedure Note Lorin, Deepa - 11/09/[address] [address] XRay Report Signed Patient: Ginette ArceoMR #: [id number] : 1975Acct:[id number] Age/Sex: 49 / FADM Date: 11/09/24 Loc: .ED Attending Dr: Ordering Physician: Generic ED Physician Date of Service: 11/09/24 Procedure(s): XR chest 2V Accession Number(s): [id number] cc: Generic ED Physician; Macknezie Estrada EXAMINATION: XR CHEST CLINICAL INFORMATION: Chest [...] 11/09/24 1058 DD/ 1045 TD/TT: 11/09/24 1050 Events And Promotions Assistant: [facility] External Provider IMG XR PROCEDURES Final Result * High Sensitivity Troponin I (11/09/2024 10:36 AM EDT) TROPONIN I HIGH SENSITIVITY <2.7 <3.5 - 17.0 ng/L [facility] Comment:The Shea high sens itivity Troponin-I results should beused in conjunction with other diagnostic information suchas ECG, clinical observations and information, and patientsymptoms to aid in the diagnosis of MN. 11/09/2024 10:3 6 AM EDT 11/09/2024 10:45 AM EDT Generic External Data Provider LAB BLOOD ORDERAB LES Final Result [facility] [address] [place] [address] [phone] * (ABNORMAL) CBC auto differential (11/09/2024 10:36 AM EDT) White Blood Count 7.3 4.8 - 10.8 X10*3/uL [facility] Red Blood Count 3.80(L) 4.20 - 5.50 X10*6/uL [facility] Hemoglobin 10.6(L) 12.0 - 16.0 g/dl [facility] Hematocrit 32.0(L) 37.0 - 47.0 % [facility] Mean Corpuscular Volume 84.2 80.0 - 98.0 fL [facility] Mean Corpuscular Hemoglobin 27.9 27.0 - 33.0 pg [facility] Mean Corpuscular HGB Conc 33.1 31.0 - 35.0 g/dl [facility] Red Cell Distribution Width 15.7 11.0 - 16.0 % [facility] Platelet Count 354 160 - 400 X10*3/uL [facility] Mean Platelet Volume 10.1 9.4 - 12.3 fL [facility] Neutrophils Percent Auto 57.2 45 - 73 % [facility] Imm Gran Pct Auto 0.3 0.0 - 0.4 % [facility] Lymphocytes Percent Auto 36.5 20 - 40 % [facility] Monocytes Percent Auto 5.2 2 - 11 % [facility] Eosinophils Percent Auto 0.5 0 - 4 % [facility] Basophils Percent Auto 0.3 0 - 2 % [facility] NRBC Pct Auto 0.0 0.0 - 0.2 /100WBC [facility] Neutrophils Absolute Auto 4.2 2.0 - 8.3 x10*3/uL [facility] Imm Gran Abs Auto 0.02 0.00 - 0.03 X10*3/uL [facility] Lymphocytes Absolute Auto 2.7 1.2 - 4.9 X10*3/uL [facility] Monocytes Absolute Auto 0.4 0.1 - 1.2 X10*3/uL [facility] Eosinophils Absolute Auto 0.0 0.0 - 0.4 X10*3/uL [facility] Basophils Absolute Auto 0.0 0.0 - 0.2 X10*3/uL [facility] NRBC Abs Auto 0.000 0.0 - 0.012 X10*3/uL [facility] 11/09/2024 10:3 6 AM EDT 11/09/2024 10:45 AM EDT Generic External Data Provider LAB BLOOD ORDERAB LES Final Result Performing Organization Address [facility] Co de Phone Number [facility] [address] [place] [phone] * Prothrombin Time-INR (11/09/2024 10:36 AM EDT) Pathologist [facility] Prothrombin Time 11.5 10.9 - 12.4 SEC [facility] INTERNATIONAL NORM RATIO 1.0 0.9 - 1.1 [facility] Comment:INTERNATIONAL NORMAL IZED RATIO (INR) REFERENCE [...] 6 AM EDT 11/09/2024 10:45 AM EDT Alleantia External Data Provider LAB BLOOD ORDERAB LES Final Result Performing Organization Address [facility] de Phone Number [facility] [address] [place] [phone] * (ABNORMAL) B Type Natriuretic Peptide (BNP) (11/09/2024 10:36 AM EDT) B Type Natriuretic Peptide 108(H) <100 pg/mL [facility] 11/09/2024 10:3 6 AM EDT 11/09/2024 10:45 AM EDT us Generic External Data Provider LAB BLOOD ORDERAB LES Final Result Performing Organization Address [facility]/ZIP Co de Phone Number [facility] [address] [place] [phone] * Magnesium (11/09/2024 10:36 AM EDT) Pathologist [facility] Magnesium 2.0 1.6 - 2.6 mg/dL [facility] 11/09/2024 10:3 6 AM EDT 11/09/2024 10:45 AM EDT Generic External Data Provider LAB BLOOD ORDERAB LES Final Result Performing Organization Address [facility] Co de Phone Number [facility] [address] [place] [phone] * (ABNORMAL) Comprehensive Metabolic Panel (11/09/2024 10:36 AM EDT) Pathologist [facility] Sodium 140 135 - 145 mmol/L [facility] Potassium 3.8 3.3 - 5.1 mmol/L [facility] Chloride 109(H) 96 - 108 mmol/L [facility] Carbon Dioxide 24 22 - 29 mmol/L [facility] Anion Gap 11(L) 12 - 20 [facility] Urea Nitrogen (BUN) 13 9 - 16 mg/dL [facility] Creatinine, Serum 0.59 0.5 - 1.4 mg/dL [facility] Creatinine Clr Calc Pharmacy 120.5 [facility] Comment:Provided height and weight: 165.1 cm,78.3 kg.eGFR (calculated from the MDRD study equation) and eCrCl(calculated from the Cockcroft-Gault equation) are based ondifferent parameters and may not yield comparable results.If eCrCl result is absurd, please check patient'sheight/weight. Estimated Glomerular Filt Rate >60 [facility] Comment:Chronic Kidney Disea se: Estimated GFR < 60 mL/min/1.73a6Msfpba Kidney Disease: Estimated GFR < 15 mL/min/1.73m2 Glucose 93 60 - 115 mg/dL [facility] Calcium 10.0 8.4 - 10.2 mg/dL [facility] Bilirubin, Total 0.2 0.0 - 1.0 mg/dL [facility] Aspartate Amino Transferase 27 5 - 31 U/L [facility] Alanine Aminotransferase 31 0 - 31 U/L [facility] Total Protein 8.9(H) 6.5 - 8.0 g/dL [facility] Albumin Level 3.6 3.5 - 5.0 g/dL [facility] Alkaline Phosphatase 112 39 - 117 U/L [facility] 11/09/2024 10:3 6 AM EDT 11/09/2024 10:45 AM EDT us Generic External Data Provider LAB BLOOD ORDERAB LES Final Result [facility] [address] [place], [place] [phone] * VASC US Lower Extremity Arterial Duplex Bilateral With Sugar (11/06/2024 1:05 PM EDT) 11/06/2024 1:05 PM EDT Narrative [facility] - 11/06/2024 2:10 PM EDT ? [facility] ?[address] ?[place] [address] ? Ultrasound Report ? Signed ? Patient: Ovidio Lacy,Ginette ?MR ?? #: [id number] ? : 1975 ?Acct:[id number] ? Age/Sex: 49 / F ?ADM Date: 04/08/25 ? Loc: HO.US ? Attending Dr: Frankie Hughes MD ? Ordering Physician: Frankie Hughes MD ?? Date of Service: 11/06/24 ?? Procedure(s): US arterial duplex BI w/ SUGAR ?? Accession Number(s): [id number] ? cc: Mackenzie Estrada; Frankie Hughes MD [...] ? Right: Abnormal. ?? Left: Abnormal. ? US/ arterial duplex BI w/ SUGAR ?? IMPRESSION: [...] Tijerina MD ??11/06/2024 02:07 PM ?? EDT ? Dictated By: ?Madan Nye MD ? Signed By: ?<Electronically signed by Madan Rose MD in OV> ? 11/06/24 1407 ? DD/ 1305 ? TD/TT: 11/06/24 1352 ? Events And Promotions Assistant: ? Procedure Note Lorin, Image - 11/06/[address] [address] Ultrasound Report Signed Patient: Ginette Arceo #: [id number] : 1975Acct:[id number] Age/Sex: 49 / FADM Date: 11/06/24 Loc: HO.US Attending Dr: Frankie Hughes MD Ordering Physician: Frankie Hughes MD Date of Service: 11/06/24 Procedure(s): US arterial duplex BI w/ SUGAR Accession Number(s): [id number] cc: Chiquita Estrada Sandip T MD EXAMINATION: Noninvasive assessment of the bilateral [...] 11/06/24 1407 DD/ 1305 TD/TT: 11/06/24 1352 Events And Promotions Assistant: [facility] External Provider CV VASC ULAR PROCEDURES Final Result [facility] [address] [place], [place] [phone] * POCT GALLO-14 Urine Drug Screen (11/06/2024 10:46 AM EDT) Only the most recent of3 resultswithin the time period is included. THC Positive Oxycodone Screen, Urine Positive Urine Urine specimen obtained by clean catch procedure / Unknown 11/06/2024 10:46 AM EDT Narrative Coral Somers RN - 11/06/2024 10:46 AM EDT .UT[employer] cup Lot#[id number] Exp. 03/20/26 Internal Pass Control Sisi Kennedy TAKE AWAY MAN POINT OF CARE TEST ENTER/EDIT ORDERABLES Final Result * XR Elbow 3+ Views Left (09/15/2024 8:07 AM EST) Anatomical Region Laterality Modality Upper Extremities, Elbow Left Radiogr aphic Imaging 09/15/2024 8:07 AM EST Narrative 09/15/2024 8:09 AM EST ? [facility] ? [address] ?[place], [place] [address] ?XRay Report ? Signed ? Patient: Ovidio Lacy,Ginette ?MR ?? #: [id number] ? : 1975 ?Acct:[id number] ? Age/Sex: 49 / F ?ADM Date: 09/14/24 ? Loc: HO.HOSX ? Attending Dr: Madonna Melara MD ? Ordering Physician: Madonna Bonilla ?? Date of Service: 09/14/24 ?? Procedure(s): XR elbow LT min 3V ?? Accession Number(s): [id number] ? cc: Mackenzie Estrada; Madonna Bonilla ? [...] ? DD/ 6 ? TD/TT: 09/15/24806 ? Events And Promotions Assistant: ? Procedure Note Deepa Padgett - 09/15/2024 [facility] [address] [place] [address] [address] [place] [address] XRay Report Signed Patient: Ginette ArceoMR #: [id number] : 1975Acct:[id number] Age/Sex: 49 / FADM Date: 09/14/24 Loc: TAMARA Attending Dr: Madonna Melara MD Ordering Physician: Madonna Bonilla Date of Service: 09/14/24 Procedure(s): XR elbow LT min 3V Accession Number(s): [id number] cc: Chiquita Estrada Madonna Bonilla CLINICAL HISTORY: M79.7 - Fibromyalgia [...] 09/15/24 0808 DD/ 0807 TD/TT: 09/15/24 0807 Events And Promotions Assistant: [facility] External Provider IMG XR PROCEDURES Edited Result - Final * XR Scapula Left (09/15/2024 8:04 AM EST) Anatomical Region Laterality Modality Body, Scapula Left Radiographic Rin ging 09/15/2024 8:04 AM EST Narrative 09/15/2024 8:06 AM EST ? [place] [facility] Surgeons ? [address] ?[place] [address] ?XRay Report ? Signed ? Patient: Ginette Arceo ?MR ?? #: [id number] ? : 1975 ?Acct:[id number] ? Age/Sex: 49 / F ?ADM Date: 09/14/24 ? Loc: HO.HOSX ? Attending Dr: Madonna Mleara MD ? Ordering Physician: Madonna Bonilla ?? Date of Service: 09/14/24 ?? Procedure(s): XR scapula LT ?? Accession Number(s): [id number] ? cc: Mackenzie Estrada; Madonna Bonilla ? [...] DD/ 08 ? TD/TT: 09/15/24 0804 ? Events And Promotions Assistant: ? Procedure Note Lorin, Image - 09/15/2024 [facility] [address] [place] [address] [address] [place] [address] XRay Report Signed Patient: Ginette ArceoMR #: [id number] : 1975Acct:[id number] Age/Sex: 49 / FADM Date: 09/14/24 Loc: HO.HOSX Attending Dr: Madonna Melara MD Ordering Physician: Madonna Bonilla Date of Service: 09/14/24 Procedure(s): XR scapula LT Accession Number(s): [id number] cc: Mackenzie Estrada; Madonna Bonilla CLINICAL HISTORY: [...] 09/15/24 0805 DD/ 0804 TD/TT: 09/15/24 0804 Events And Promotions Assistant: [facility] External Provider IMG XR PROCEDURES Edited Result - Final * XR Humerus Left (09/15/2024 8:00 AM EST) Anatomical Region Laterality Modality Upper Extremities, Humerus Left Radio graphic Imaging 09/15/2024 8:00 AM EST Narrative 09/15/2024 8:02 AM EST ? [facility] ? [address] ?[place] [address] ?XRay Report ? Signed ? Patient: Ovidio Lacy,Ginette ?MR ?? #: [id number] ? : 1975 ?Acct:[id number] ? Age/Sex: 49 / F ?ADM Date: /14/25 ? Loc: HO.HOSX ? Attending Dr: Madonna Melara MD ? Ordering Physician: Madonna Bonilla ?? Date of Service: 09/14/24 ?? Procedure(s): XR humerus LT ?? Accession Number(s): [id number] ? cc: Mackenzie Estrada; Madonna Bonilla ? [...] 0801 ? DD/ 0800 ? TD/TT: 09/15/24 08 ? Events And Promotions Assistant: ? Procedure Note Donrere, Image - 09/15/2024 [facility] [address] [place] [address] [address] [place] [address] XRay Report Signed Patient: Ginette ArceoMR #: [id number] : 1975Acct:[id number] Age/Sex: 49 / FADM Date: 09/14/24 Loc: HOJUANAX Attending Dr: Madonna Melara MD Ordering Physician: Madonna Bonilla Date of Service: 09/14/24 Procedure(s): XR humerus LT Accession Number(s): [id number] cc: Mackenzie Estrada; Madonna Bonilla CLINICAL HISTORY: [...] 09/15/24 08 DD/ 08 TD/TT: 09/15/24 08 Events And Promotions Assistant: us [facility] External Provider IMG XR PROCEDURES Edited Result - Final * Hepatitis C Ab (04/11/2024 10:26 AM EDT) Hepatitis C Antibody Nonreactive Nonreactive [facility] Comment:Antibodies to HCV no t detected; does not exclude early acuteHCV infection. Blood Venous blood specimen / Unknown 04/11/2024 10:26 AM EDT 04/11/2024 11:19 AM EDT Mackenzie Estrada MD LAB BLOOD ORDERABLES Final Res ult [facility] [address] [place] [address] [phone] * HIV-1/2 Antigen and Antibodies, Fourth Generation, with Reflexes (04/11/2024 10:26 AM EDT) Pathologist [facility] HIV AB/AG Nonreactive Nonreactive [facility] Comment:HIV-1 p24 Ag and/or HIV-1/HIV-2 Ab not detected.A test result that is nonreactive does not exclude thepossibility of exposure to or infection with HIV-1 and/orHIV-2. Nonreactive results in this assay for individualswith prior exposure to HIV-1 and/or HIV-2 may be due toantigen and antibody levels that are below the limit ofdetection of this assay.The [employer] HIV Ag/Ab Combo assay result andsupplemental assay results should be interpreted inconjunction with the patient's clinical presentation,history and other laboratory results. If the results areinconsistent with clinical evidence, additional testing issuggested to confirm the result. Blood Venous blood specimen / Unknown 04/11/2024 10:26 AM EDT 04/11/2024 11:19 AM EDT Mackenzie Estrada MD LAB BLOOD ORDERABLES Final Res ult [facility] [address] [place] [address] [phone] * HPV mRNA E6/E7 w/Reflex to HPV Genotypes 16, 18/45 (09/29/2023 12:26 PM EST) HPV nRNA E6/E7 Not Detected Not Detected [facility] Comment:Methodology: Transcr iption-Mediated AmplificationThis assay detects E6/E7 viral messenger RNA (mRNA) from 14high-risk HPV types (16,18,31,33,35,39,45,51,52,56,58,59,66,68).Cervical sources are required for HPV testing.If a vaginal source from a patient who has had atotal hysterectomy with removal of cervix wassubmitted, please contact the testing laboratoryfor alternative testing options.For additional information, please refer tohttp://education.Socialcast/faq/NUI526z1(This link if provided for information/educational purposes only.)THIS TEST WAS PERFORMED AT:[facility] [place] [phone] GALVAN MD HPV mRNA E6/E7 TNP [facility] HPV 16 RNA [facility] HPV 18/45 RNA [facility] 09/29/2023 12:2 6 PM EST 09/30/2023 11:30 AM EST Mackenzie Estrada MD LAB CYTOLOGY ORDERABLES Final Result [facility] [address] [place] [phone] * Pap Smear (09/29/2023 12:26 PM EST) 09/29/2023 12:2 6 PM EST 09/30/2023 11:30 AM EST Narrative [facility] - 10/12/2023 4:18 PM EDT ----- ------- Name: Ginette Arceo ?Age/Sex: 48/F ? : 1975 Unit#: [id number] ?? Attend Dr: Mackenzie Estrada ?Re09/29/23 ?Status: DEP REF ? [facility] ? Disch: ? ----- ------- SPEC : [id number] ? RECD: 09/30/23 ? STATUS: ??SOUT ? REQ NUM: [id number] ? BHAVIN: 09/29/23-1226 ? SUBM DR: Mackenzie Estrada ? ENTERED: ??09/30/236 ?SP TYPE: Pap Smr ?OTHR : ? ORDERED: ??Pap Smear ? Interpretation ?? Satisfactory for evaluation. ?? Negative for intraepithelial lesion or malignancy. ?HPV mRNA E6/E7: ?NOT DETECTED ? This assay detects E6/E7 viral messenger RNA (mRNA) from 14 high-risk HPV types (16, 18, ?? 31, 33, 35, 39, 45, 51, 52, 56, 58, 59, 66, 68) ?? HPV testing performed by [facility], [place], [place]. ??See reference laboratory ?? portion of the EMR for entire report. ?Clinical Information LMP: Heavy menstrual bleeding past two weeks Previous PAP test: Unknown date/findings Other history: ? Material Received ?? ThinPrep-Cervical ----- ------- Signed (signature on file) BARB Hawley (ASCP) 10/12/23 8188 ? ----- ------- ? END OF REPORT ? us Mackenzie Estrada MD LAB CYTOLOGY ORDERABLES Final Result [facility] [address] [place] [phone] * Mammography Report 1 (10/09/2021 12:05 [...] ?? Hi COELLO et al. ROXY. 2013;310(19): 4300-8502 ?? (http://education.enEvolv/faq/KGX272) Non-HDL Cholesterol 175(H) <130 mg/dL (calc) [facility] [...] [facility] [address] [place] [address], * Colonoscopy (10/28/2017) Colonoscopy Normal Normal Narrative Cecilia Henriquez - 10/28/2017 Recommended 10 year follow up ([facility] Historical Provider HEALTH MAINTENANCE Edited Result - Final from Last 3 Months or Most Recently Relevant to Health Maintenance Insurance [facility] C3 DENTAL-[facility] [place]ICA[place] Care Teams Motor Vehicle Clerk Relationship Specialty Start Date End Date Mackenzie Estrada MD [address] [place] [phone] PCP - General Family Medicine 07/10/20
--- OUTSIDE RECORDS SUMMARY | 2024-11-09 12:43 | XMS_ITS | Encounter Summary ---
Author Organization [employer] Address 75 [facility] 7t [place] [address] Care Team Providers Care Arc Furnace Operator Name Role Phone Mackenzie Estrada MD Primary Care Provider [phone] Reason for Visit * Reason Comments Med Refill Encounter Details Date Type Department Care Team ([facility] st Contact Info) Description 06/03/2023 Refill [facility] MEDICINE [address] [place], [place] [phone] Mackenzie Estrada MD [address] [place], [place] [phone] Pain in both hands Social History Tobacco [...] Description 12/11/2024 9:45 AM EDT Office Visit [address] [address] 12/28/2024 9:45 AM EDT Office Visit [address] [address] Mackenzie Estrada MD [address] [place] [address] documented as of this encounter Goals Goal Patient Goal Type Associated Problems Recent Progress Patient-Stated? Author Quit using tobacco (cigarettes, smokeless, etc) Tobacco Use No Corey Lin, PharmD documented as of this encounter Visit Diagnoses Diagnosis Pain in both hands documented in this encounter Care Teams Arc Furnace Operator Relationship Specialty Start Date End Date Mackenzie Estrada MD [address] [place] [address] PCP - General Family Medicine 07/10/20 documented as of this encounter
--- OUTSIDE RECORDS SUMMARY | 2024-11-09 12:43 | XMS_ITS | Encounter Summary ---
Author Organization [employer] [facility] Address 75 [facility] 7t [place] [address] Care Team Providers Care Pants Maker Name Role Phone Mackenzie Estrada MD Primary Care Provider [phone] Reason for Visit * Reason Comments Med Refill Encounter Details Date Type Department Care Team ([facility] Contact Info) Description 12/10/2022 Refill [facility] [address] [place] [address] Mackenzie Estrada MD [address] [place], [place] [phone] Pain in both hands Social History Tobacco [...] Upcoming Encounters Date Type Department Care Team ([facility] Contact Info) Description 12/11/2024 9:45 AM EDT Office Visit [facility] [address] [place] [address] 12/28/2024 9:45 AM EDT Office Visit [facility] [address] [place] [address] Mackenzie Estrada MD [address] [place], [place] [phone] documented as of this encounter Visit Diagnoses Diagnosis Pain in both hands documented in this encounter Care Teams Pants Maker Relationship Specialty Start Date End Date Mackenzie Estrada MD [address] [place] [address] PCP - General Family Medicine 07/10/20 documented as of this encounter
--- OUTSIDE RECORDS SUMMARY | 2024-11-09 12:43 | XMS_ITS | Encounter Summary ---
Author Organization [employer] [facility] Address 75 [facility] 7t [place] [address] Care Team Providers Care Field Broomer Name Role Phone Mackenzie Estrada MD Primary Care Provider [phone] Reason for Referral * Imaging (Routine) - Closed Specialty Diagnoses / Procedures Referred By Contac t Referred To Contact Radiology Diagnoses Abnormal ultrasound of pelvis Procedures MR Pelvis w/ and w/o Contrast Mackenzie Estrada MD [address] [place] [address] Phone: tel: fax: [address] Phone: tel: fax: Referral ID Status Reason Start Date Expiration Date Visits Re quested Visits Authorized [id number] Closed 10/31/2023 10/30/2024 1 1 Encounter Details Date Type Department Care Team (Late st Contact Info) Description 10/31/2023 Orders Only [facility] [address] [place], [place] [phone] Mackenzie Estrada MD [address] [place], [place] [phone] Abnormal ultrasound of pelvis (Primary Dx) Social [...] which I need to talk to her counter clerk tractor parts about. Thank you! documented in this encounter Plan of Treatment Upcoming Encounters Date Type Department Care Team (Late st Contact Info) Description 12/11/2024 9:45 AM EDT Office Visit [facility] [address] [place] [address] 12/28/2024 9:45 AM EDT Office Visit [facility] [address] [place] [address] Mackenzie Estrada MD [address] [place] [address] documented as of this encounter Goals Goal [...] EDT Narrative 12/07/2023 9:11 AM EDT ? [facility] ?[address] ?[place] [address] ? Magnetic Resonance Report ? Signed ? Patient: Ginette Arceo ?MR ?? #: [id number] ? : 1975 ?Acct:[id number] ? Age/Sex: 48 / F ?ADM Date: 11/25/23 ? Loc: HO.MRI ? Attending Dr: Mackenzie Estrada MD ? Ordering Physician: Mackenzie Estrada ?? Date of Service: 11/25/23 ?? Procedure(s): MR pelvis wo/w con ?? Accession Number(s): [id number] ? cc: Mackenzie Estrada ? EXAMINATION: ?? [...] 7.8 x 3.6 ?? x 4.3 cm (vkhxfi-bt-ssztmy x AP x transverse dimension). The junctional [...] 12/07/23906 ? DD/ 1505 ? TD/TT: ? Line Fixer: PD ? Procedure Note Donotuseinterpreter, Image - 12/07/[address] [address] Magnetic Resonance Report Signed Patient: Ginette ArceoMR #: [id number] : 1975Acct:[id number] Age/Sex: 48 / FADM Date: 11/25/23 Loc: HO.MRI Attending Dr: Mackenzie Estrada MD Ordering Physician: Mackenzie Estrada Date of Service: 11/25/23 Procedure(s): MR pelvis wo/w con Accession Number(s): [id number] cc: Mackenzie Estrada EXAMINATION: MR PELVIS WITHOUT [...] measures 7.8 x 3.6 x 4.3 cm (qgodij-ta-nqcwsl x AP x transverse dimension). The junctional [...] Haskins MD Signed By: <Electronically signed by Soctt Haskins MD in OV> 12/07/23 0907 DD/ 1505 TD/TT: Line Fixer: PD Mackenzie Estrada MD IMG MRI PROCEDURES Final Resul t documented in this encounter Visit Diagnoses Diagnosis Abnormal ultrasound of pelvis- Primary documented in this encounter Care Teams Field Broomer Relationship Specialty Start Date End Date Mackenzie Estrada MD [address] [place] [address] PCP - General Family Medicine 07/10/20 documented as of this encounter
--- OUTSIDE RECORDS SUMMARY | 2024-11-09 12:43 | XMS_ITS | Clinical Summary ---
Author Organization [facility] Address [address] [place] [address] Care Team Providers Care Glazier Supervisor Name Role Phone Sanjay Cruz MD Primary Care Provi [facility] Surgical History Surgery Date Site/Laterality Comments OTHER SURGICAL HISTORY 05/12/2020 Right PROCEDURE: MT BX/EXC LYMPH NODE OPEN SUPERFICIAL; COMMENT: Axillary Lymph Node biopsy- Benign Lymphoid Tissue OTHER SURGICAL HISTORY 12/19/2019 Right PROCEDURE: MT BX/EXC LYMPH NODE NEEDLE SUPERFICIAL; COMMENT: Axillary Lymph node -results were non daignostic Medical History Medical History Date Comments Anxiety DX:Anxiety Migraine DX:Migraine History of DVT (deep vein thrombosis) 05/23/2020 DX:History of DVT (deep vein thrombosis); COMMENT: 01/2005 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 of anticoagulant Acute deep vein thrombosis ( DVT) of brachial vein of right upper extremity ([facility] V24, [facility] V28) 05/09/2020 DX:Acute deep vein thrombos is (DVT) of brachial vein of right upper extremity (HCC) Axillary lymphadenopathy 05/09/2020 DX:Axil harvinder lymphadenopathy Gastroesophageal reflux disease 05/09/2020 DX:Gastroesophageal reflux disease Personal history of Hodgkin lymphoma 05/09/2020 DX:Personal history of Hodgkin lymphoma Recurrent major depressive d isorder in remission ([facility] V24) 05/09/2020 DX:Recurrent major depressiv e disorder in remission (HCC) Rheumatoid arthritis involvi ng multiple sites ([facility] V24, [facility] V28) 05/09/2020 DX:Rheumatoid arthritis invo lving multiple sites (HCC) Hodgkin's disease, nodular s clerosis, of lymph nodes of multiple sites ([facility] V24, [facility] V28) DX:Hodgkin's disease, nodul ar sclerosis, of lymph nodes of multiple sites [...] age to complete this topic Care Teams Glazier Supervisor Relationship Specialty Start Date End Date Sanjay Cruz MD [address] [place] [phone] PCP - General Internal Medicine 04/09/20
--- OUTSIDE RECORDS SUMMARY | 2024-11-09 12:44 | XMS_ITS | Encounter Summary ---
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 [...] the past 12 months, has t he [employer], gas, oil or water company threatened to [...] Description 12/11/2024 9:45 AM EDT Office Visit [facility] [address] [place] [address] 12/28/2024 9:45 AM EDT Office Visit [facility] [address] [place] [address] Mackenzie Estrada MD [address] [place] [address] documented as of this encounter Goals Goal [...] documented as of this encounter Care Teams Chief Merchandising Officer Relationship Specialty Start Date End Date Mackenzie Estrada MD [address] [place] [address] PCP - General Family Medicine 07/10/20 documented as of this encounter
--- OUTSIDE RECORDS SUMMARY | 2024-11-09 12:44 | XMS_ITS | Encounter Summary ---
Author Organization [employer] Address 75 [facility] 7t [place] [address] Care Team Providers Care Weight Caller Name Role Phone Mackenzie Estrada MD Primary Care Provider [phone] Reason for Visit * Reason Comments Med Refill Encounter Details Date Type Department Care Team ([facility] st Contact Info) Description 06/01/2023 Refill [facility] MEDICINE [address] [place], [place] [phone] Mackenzie Estrada MD [address] [place], [place] [phone] Pain in both hands Social History Tobacco [...] Description 12/11/2024 9:45 AM EDT Office Visit [address] [address] 12/28/2024 9:45 AM EDT Office Visit [address] [address] Mackenzie Estrada MD [address] [place] [address] documented as of this encounter Goals Goal Patient Goal Type Associated Problems Recent Progress Patient-Stated? Author Quit using tobacco (cigarettes, smokeless, etc) Tobacco Use No Corey Lin, PharmD documented as of this encounter Visit Diagnoses Diagnosis Pain in both hands documented in this encounter Care Teams Weight Caller Relationship Specialty Start Date End Date Mackenzie Estrada MD [address] [place] [address] PCP - General Family Medicine 07/10/20 documented as of this encounter
--- OUTSIDE RECORDS SUMMARY | 2024-11-09 12:44 | XMS_ITS | Encounter Summary ---
Author Organization [employer] [facility] Address 75 [facility] 7t [place] [address] Care Team Providers Care Chief School Finance Officer Name Role Phone Mackenzie Estrada MD Primary Care Provider [phone] Reason for Visit * Reason Comments Med Refill Encounter Details Date Type Department Care Team ([facility] Contact Info) Description 08/25/2022 Refill [facility] MEDICINE [address] [place] [phone] Mackenzie Estrada MD [address] [place], [place] [phone] Pain in both hands Social History Tobacco [...] Encounters Date Type Department Care Team ([facility] Contact Info) Description 12/11/2024 9:45 AM EDT Office Visit [facility] MEDICINE [address] [place] [phone] 12/28/2024 9:45 AM EDT Office Visit [facility] [address] [place] [phone] Mackenzie Estrada MD [address] [place], [place] [phone] documented as of this encounter Visit Diagnoses Diagnosis Pain in both hands documented in this encounter Care Teams Chief School Finance Officer Relationship Specialty Start Date End Date Mackenzie Estrada MD [address] [place], [place] [phone] PCP - General Family Medicine 07/10/20 documented as of this encounter
--- OUTSIDE RECORDS SUMMARY | 2024-11-09 12:44 | XMS_ITS | Encounter Summary ---
Author Organization [employer] Address 75 [facility] 7t [place] [address] Care Team Providers Care Promotional Marketing Analyst Name Role Phone Mackenzie Estrada MD Primary Care Provider [phone] Reason for Visit * Reason Comments Med Refill Encounter Details Date Type Department Care Team ([facility] Contact Info) Description 07/27/[address] [facility] MEDICINE 230 [place], [place] [phone] Name, MD Mark [address] [place] [address] Pain in both hands Social History Tobacco [...] Description 12/11/2024 9:45 AM EDT Office Visit [address] [address] 12/28/2024 9:45 AM EDT Office Visit [address] [address] Mackenzie Estrada MD [address] [place] [address] documented as of this encounter Goals Goal Patient Goal Type Associated Problems Recent Progress Patient-Stated? Author Quit using tobacco (cigarettes, smokeless, etc) Tobacco Use No Corey Lin, PharmD documented as of this encounter Visit Diagnoses Diagnosis Pain in both hands documented in this encounter Care Teams Promotional Marketing Analyst Relationship Specialty Start Date End Date Mackenzie Estrada MD [address] [place] [address] PCP - General Family Medicine 07/10/20 documented as of this encounter
--- OUTSIDE RECORDS SUMMARY | 2024-11-09 12:44 | XMS_ITS | Encounter Summary ---
Author Organization [employer] Address [address] [facility] [address] 7t [place] [address] Care Team Providers Care Button Sawyer Name Role Phone Mackenzie Estrada MD Primary Care Provider [phone] Encounter Details Date Type Department Care Team (Late st Contact Info) Description 06/01/2023 Orders Only [facility] MEDICINE [address] [place], [place] [phone] Mackenzie Estrada MD [address] [place] [address] Encounter for smoking cessation counseling (Primary Dx) [...] Description 12/11/2024 9:45 AM EDT Office Visit [address] [address] 12/28/2024 9:45 AM EDT Office Visit [address] [address] Mackenzie Estrada MD [address] [place] [address] documented as of this encounter Goals Goal Patient Goal Type Associated Problems Recent Progress Patient-Stated? Author Quit using tobacco (cigarettes, smokeless, etc) Tobacco Use No Corey Lin, PharmD documented as of this encounter Visit Diagnoses Diagnosis Encounter for smoking cessation counseling- Primary documented in this encounter Care Teams Button Sawyer Relationship Specialty Start Date End Date Mackenzie Estrada MD [address] [place] [address] PCP - General Family Medicine 07/10/20 documented as of this encounter
--- OUTSIDE RECORDS SUMMARY | 2024-11-09 12:44 | XMS_ITS | Encounter Summary ---
Author Organization [employer] Address [address] [facility] 7t [place] [address] Care Team Providers Care Underwriter Name Role Phone Mackenzie Estrada MD Primary Care Provider [phone] Reason for Visit * Reason Onset Date Comments Hospital Follow-up 02/24/2024 Encounter Details Date Type Department Care Team ([facility] st Contact Info) Description 02/24/2024 Telephone [facility] MEDICINE [address] [place], [place] [phone] Mackenzie Estrada MD 230 [place] [address] Hospital Follow-up Social History Tobacco Use Types [...] from pt requesting a HDF appt. Hospital: [facility] Date of admission: 02/19 Discharge date: 02/23 Diagnosed: Rectal Bleeding Jamaican Speaker documented in this encounter Plan of Treatment Upcoming Encounters Date Type Department Care Team (Late st Contact Info) Description 12/11/2024 9:45 AM EDT Office Visit [facility] MEDICINE [address] [place] [address] 12/28/2024 9:45 AM EDT Office Visit [facility] MEDICINE [address] [place] [address] Mackenzie Estrada MD [address] [place] [address] documented as of this encounter Goals Goal Patient Goal Type Associated Problems Recent Progress Patient-Stated? Author Quit using tobacco (cigarettes, smokeless, etc) Tobacco Use No Corey Lin, Bailey documented as of this encounter Visit Diagnoses Not on filedocumented in this encounter Care Teams Underwriter Relationship Specialty Start Date End Date Mackenzie Estrada MD [address] [place] [address], [place] [address] PCP - General Family Medicine 07/10/20 documented as of this encounter
--- OUTSIDE RECORDS SUMMARY | 2024-11-09 12:44 | XMS_ITS | Encounter Summary ---
Author Organization [employer] Address 75 [facility] 7t [place] [address] Care Team Providers Care Bark Fitter Name Role Phone Mackenzie Estrada MD Primary Care Provider [phone] Reason for Visit * Reason Comments Med Refill Encounter Details Date Type Department Care Team ([facility] st Contact Info) Description 06/02/2023 Refill [facility] MEDICINE 230 [place], [place] [phone] Mackenzie Estrada MD 230 [place], [place] [phone] Pain in both hands Social History Tobacco [...] Description 12/11/2024 9:45 AM EDT Office Visit [address] [address] 12/28/2024 9:45 AM EDT Office Visit [address] [address] Mackenzie Estrada MD [address] [place] [address] documented as of this encounter Goals Goal Patient Goal Type Associated Problems Recent Progress Patient-Stated? Author Quit using tobacco (cigarettes, smokeless, etc) Tobacco Use No Corey Lin, PharmD documented as of this encounter Visit Diagnoses Diagnosis Pain in both hands documented in this encounter Care Teams Bark Fitter Relationship Specialty Start Date End Date Mackenzie Estrada MD [address] [place] [address] PCP - General Family Medicine 07/10/20 documented as of this encounter
--- OUTSIDE RECORDS SUMMARY | 2024-11-09 12:44 | XMS_ITS | Clinical Summary ---
Author Organization [facility] Address [address] [place] [address] Support Name Relationship Address Phone Brayden Hernandez Emergency Contact [address] [place] [address] Care Team Providers Care Stereotyper Apprentice Name Role Phone Abdullahi Lizarraga MD Primary Care Provider [phone] Allergies Active Allergy Reactions Criticality Noted Date [...] age to complete this topic Care Teams Stereotyper Apprentice Relationship Specialty Start Date End Date Abdullahi Lizarraga MD [address] [place] [address] PCP - General Nephrology 03/10/18
--- OUTSIDE RECORDS SUMMARY | 2024-11-09 12:44 | XMS_ITS | Encounter Summary ---
Author Organization [employer] Address [address] [facility] [address] 7t [place] [address] Care Team Providers Care Senior Patient Account Representative Name Role Phone Mackenzie Estrada MD Primary Care Provider [phone] Encounter Details Date Type Department Care Team ([facility] st Contact Info) Description 05/21/2024 Telephone [facility] MEDICINE 230 [place], [place] [phone] Mackenzie Estrada MD [address] [place] [address] Social History Tobacco Use Types Packs/Day Years [...] 12/11/2024 9:45 AM EDT Office Visit [address] [address] 12/28/2024 9:45 AM EDT Office Visit [address] [address] Mackenzie Estrada MD [address] [place] [address] documented as of this encounter Goals Goal [...] as of this encounter Care Teams Senior Patient Account Representative Relationship Specialty Start Date End Date Mackenzie Estrada MD [address] [place] [address] PCP - General Family Medicine 07/10/20 documented as of this encounter
--- OUTSIDE RECORDS SUMMARY | 2024-11-09 12:44 | XMS_ITS | Encounter Summary ---
Author Organization [employer] Address 75 [facility] 7t [place] [address] Care Team Providers Care Cash Clerk Name Role Phone Mackenzie Estrada MD Primary Care Provider Reason for Visit * Reason Comments Med Refill Encounter Details Date Type Department Care Team ([facility] st Contact Info) Description 01/12/2024 Refill [facility] MEDICINE [address] [place], [place] [phone] Mackenzie Estrada MD 230 [place], [place] [phone] Rheumatoid arthritis involving multiple sites with positive rheumatoid factor ([facility]) Social History Tobacco Use Types Packs/Day Years [...] Description 12/11/2024 9:45 AM EDT Office Visit [facility] MEDICINE [address] [place] [address] 12/28/2024 9:45 AM EDT Office Visit [address] [address] Mackenzie Estrada MD [address] [place] [address] documented as of this encounter Goals Goal Patient Goal Type Associated Problems Recent Progress Patient-Stated? Author Quit using tobacco (cigarettes, smokeless, etc) Tobacco Use No Corey Lin, KelechiD documented as of this encounter Visit Diagnoses Diagnosis Rheumatoid arthritis involving multiple sites with positive rheumatoid factor ([facility]) documented in this encounter Care Teams Cash Clerk Relationship Specialty Start Date End Date Mackenzie Estrada MD [address] [place] [address] PCP - General Family Medicine 07/10/20 documented as of this encounter
--- OUTSIDE RECORDS SUMMARY | 2024-11-09 12:44 | XMS_ITS | Encounter Summary ---
Author Organization [employer] Address 75 [facility] 7t [place] [address] Care Team Providers Care Hackler Doll Wigs Name Role Phone Mackenzie Estrada MD Primary Care Provider Reason for Visit * Reason Comments Med Refill Encounter Details Date Type Department Care Team ([facility] st Contact Info) Description 07/21/2023 Refill [facility] MEDICINE 230 [place], [place] [phone] Name, MD Mark 230 [place] [address] Pain in both hands Social History Tobacco [...] 12/11/2024 9:45 AM EDT Office Visit [address] [address] 12/28/2024 9:45 AM EDT Office Visit [address] [address] Mackenzie Estrada MD [address] [place] [address] documented as of this encounter Goals Goal Patient Goal Type Associated Problems Recent Progress Patient-Stated? Author Quit using tobacco (cigarettes, smokeless, etc) Tobacco Use No Corey Lin, PharmD documented as of this encounter Visit Diagnoses Diagnosis Pain in both hands documented in this encounter Care Teams Hackler Doll Wigs Relationship Specialty Start Date End Date Mackenzie Estrada MD [address] [place] [address] PCP - General Family Medicine 07/10/20 documented as of this encounter
--- OUTSIDE RECORDS SUMMARY | 2024-11-09 12:44 | XMS_ITS | Encounter Summary ---
Author Organization [employer] Address [address] [facility] [address] 7t [place] [address] Care Team Providers Care Aircraft Armorer Name Role Phone Mackenzie Estrada MD Primary Care Provider [phone] Reason for Visit * Reason Comments Med Refill Encounter Details Date Type Department Care Team ([facility] st Contact Info) Description 08/26/[address] [facility] MEDICINE 230 [place] [address] Sisi Kennedy FNP [address] [place], [place] [phone] Viral upper respiratory tract infection Social History [...] Description 12/11/2024 9:45 AM EDT Office Visit [address] [address] 12/28/2024 9:45 AM EDT Office Visit [address] [address] Mackenzie Estrada MD [address] [place] [address] documented as of this encounter Goals Goal Patient Goal Type Associated Problems Recent Progress Patient-Stated? Author Quit using tobacco (cigarettes, smokeless, etc) Tobacco Use No Corey Lin, PharmD documented as of this encounter Visit Diagnoses Diagnosis Viral upper respiratory tract infection Acute upper respiratory infections of unspecified site documented in this encounter Care Teams Aircraft Armorer Relationship Specialty Start Date End Date Mackenzie Estrada MD [address] [place] [address] PCP - General Family Medicine 07/10/20 documented as of this encounter
--- OUTSIDE RECORDS SUMMARY | 2024-11-09 12:44 | XMS_ITS | Encounter Summary ---
Author Organization [employer] Address [address] [facility] [address] 7t [place] [address] Care Team Providers Care Permit Technician Name Role Phone Mackenzie Estrada MD Primary Care Provider [phone] Encounter Details Date Type Department Care Team [...] 9:45 AM EDT Office Visit [facility] MEDICINE [address] [place] [address] 12/28/2024 9:45 AM EDT Office Visit [address] [address] Mackenzie Estrada MD [address] [place] [address] documented as of this encounter Goals Goal [...] documented as of this encounter Care Teams Permit Technician Relationship Specialty Start Date End Date Mackenzie Estrada MD [address] [place] [address] PCP - General Family Medicine 07/10/20 documented as of this encounter
--- OUTSIDE RECORDS SUMMARY | 2024-11-09 12:44 | XMS_ITS | Encounter Summary ---
Author Organization [employer] Address 75 [facility] 7t [place] [address] Care Team Providers Care Insulator Cutter And Former Name Role Phone Mackenzie Estrada MD Primary Care Provider [phone] Reason for Visit * Reason Onset Date Comments Triage 11/10/2022 Encounter Details Date Type Department Care Team ([facility] Contact Info) Description 11/10/2022 Telephone [facility] MEDICINE 230 [place], [place] [phone] Mackenzie Estrada MD 230 [place], [place] [phone] Triage Social History Tobacco Use Types Packs/Day [...] - 11/11/2022 11:10 AM EDT TC to [phone] via EPS interpreters in regards to below message. Pt reports she went to [facility] since [facility] did not return her call. RN informed pt triage nurses attempted to call pt x2 however pt did not answer. RN reviewed [facility] ED note and pt presented to ED [...] has not been able to pick up and delivery driver the nystatin medication because [facility] did not have it. RN asked if [facility] informed the pt they were going to order it however pt was not sure. RN placed pt on hold and called [facility] pharmacy who reports it is supposed to be arriving in store today and pt should call around 3pm to inquire if it was received and ready for pick up and delivery driver. Pt verbalized understanding. RN advised pt if her rash does not resolve with medication and her pain does not resolve to call [facility] to schedule an appt for further evaluation. Pt verbalized understanding. Pt to F/U PRN. RN has printed ED note and placed in scan bin * Telephone Encounter - Chika Ingram LPN - 11/10/2022 2:30 PM EDT Triage call returned to patient with Perry reproduction artist [id number] to listed number x 2 no answer. Left message to return call to [phone]. Team Nurses tasked to follow with patient [...] Description 12/11/2024 9:45 AM EDT Office Visit [address] [address] 12/28/2024 9:45 AM EDT Office Visit [address] [address] Mackenzie Estrada MD [address] [place] [address] documented as of this encounter Visit Diagnoses Not on filedocumented in this encounter Care Teams Insulator Cutter And Former Relationship Specialty Start Date End Date Mackenzie Estrada MD [address] [place] [address] PCP - General Family Medicine 07/10/20 documented as of this encounter
--- OUTSIDE RECORDS SUMMARY | 2024-11-09 12:44 | XMS_ITS | Encounter Summary ---
Author Organization [employer] Address [address] [facility] [address] 7t [place] [address] Care Team Providers Care Attorney Law Clerk Name Role Phone Mackenzie Estrada MD Primary Care Provider [phone] Encounter Details Date Type Department Care Team (Late st Contact Info) Description 11/06/2024 9:45 AM EDT Office Visit [facility] MEDICINE 230 [place] [address] Sisi Kennedy FNP [address] [place], [place] [phone] Rheumatoid arthritis involving multiple sites with positive [...] this encounter Progress Notes * Sisi Kennedy, ASSISTANT PROFESSOR OF MUSIC - 11/06/2024 9:45 AM EDT Subjective: Ginette [...] History: Associated Diagnosis: Rheumatoid Arthritis Following with [facility] Rheumatology Per PCP Note: RF++CCP++ Regularly requiring [...] Visit Other Rheumatoid arthritis involving multiple sites ([facility]) - Primary Overview - Following with [facility] Rheumatoloy Current Assessment & Plan -Good engagement [...] at 09/2024 refill Indication: Rheumatoid arthritis Last SEO ASSOCIATE Agreement: 06/12/24 Tier: II (Q3 months visits), [...] of both ears, unspecified type Relevant Medications qlrefldd-vwzaepamv-bueysmnpelhnxn (Cortisporin) [id number] otic suspension Follow up: 1-3 months for [facility]. Follow up as scheduled with PCP, sooner as needed. * Coral Somers RN - 11/06/2024 9:45 AM EDT .SEO ASSOCIATE printed circuit board pcb draftsman: PDMP reviewed today. Last fill date: 10/17/24 [...] EDTAssociated Problem(s): Rheumatoid arthritis involving multiple sites ([facility]) -Good engagement and participation with Group Medical Visit model -Encouraged multifactorial approach to pain control including pharm and non- pharm modalities -UTOX and Pill count as expected documented in this encounter Plan of Treatment Upcoming Encounters Date Type Department Care Team (Late st Contact Info) Description 12/11/2024 9:45 AM EDT Office Visit [facility] MEDICINE [address] [place] [address] 12/28/2024 9:45 AM EDT Office Visit [facility] MEDICINE [address] [place] [address] Mackenzie Estrada MD 230 [place] [address] documented as of this encounter Goals Goal [...] - 11/06/2024 10:46 AM EDT .UTOX cup Lot#[id number] Exp. 03/20/26 Internal Pass Control Sisi Kennedy ASSISTANT PROFESSOR OF MUSIC POINT OF CARE TEST ENTER/EDIT ORDERABLES Final [...] documented as of this encounter Care Teams Attorney Law Clerk Relationship Specialty Start Date End Date Mackenzie Estrada MD [address] [place] [address] PCP - General Family Medicine 07/10/20 documented as of this encounter
--- OUTSIDE RECORDS SUMMARY | 2024-11-09 12:44 | XMS_ITS | Encounter Summary ---
Author Organization [employer] Address 75 [facility] 7t [place] [address] Care Team Providers Care Advertising Consultant Name Role Phone Mackenzie Estrada MD Primary Care Provider [phone] Reason for Visit * Reason Comments Med Refill Encounter Details Date Type Department Care Team ([facility] Contact Info) Description 07/28/2022 Refill [facility] MEDICINE 230 [place] [address] Mackenzie Estrada MD 230 [place] [address] Pain in both hands Social History Tobacco [...] Upcoming Encounters Date Type Department Care Team ([facility] Contact Info) Description 12/11/2024 9:45 AM EDT Office Visit [facility] MEDICINE [address] [place] [address] 12/28/2024 9:45 AM EDT Office Visit [facility] MEDICINE [address] [place] [address] Mackenzie Estrada MD [address] [place] [address] documented as of this encounter Visit Diagnoses Diagnosis Pain in both hands documented in this encounter Care Teams Advertising Consultant Relationship Specialty Start Date End Date Mackenzie Estrada MD [address] [place] [address] PCP - General Family Medicine 07/10/20 documented as of this encounter
--- OUTSIDE RECORDS SUMMARY | 2024-11-09 12:44 | XMS_ITS | Encounter Summary ---
Author Organization [employer] Address 75 [facility] 7t [place] [address] Care Team Providers Care Gallery Or Museum Attendant Name Role Phone Mackenzie Estrada MD Primary Care Provider [phone] Reason for Visit * Reason Comments Med Refill Encounter Details Date Type Department Care Team ([facility] st Contact Info) Description 07/26/2023 Refill [facility] MED[facility] 230 [place], [place] [phone] Name, MD Mark 230 [place] [address] Pain in both hands Social History Tobacco [...] Description 12/11/2024 9:45 AM EDT Office Visit [address] [address] 12/28/2024 9:45 AM EDT Office Visit [address] [address] Mackenzie Estrada MD [address] [place] [address] documented as of this encounter Goals Goal Patient Goal Type Associated Problems Recent Progress Patient-Stated? Author Quit using tobacco (cigarettes, smokeless, etc) Tobacco Use No Corey Lin, PharmD documented as of this encounter Visit Diagnoses Diagnosis Pain in both hands documented in this encounter Care Teams Gallery Or Museum Attendant Relationship Specialty Start Date End Date Mackenzie Estrada MD [address] [place] [address] PCP - General Family Medicine 07/10/20 documented as of this encounter
--- OUTSIDE RECORDS SUMMARY | 2024-11-09 12:44 | XMS_ITS | Encounter Summary ---
Author Organization [employer] Address [address] [facility] [address] 7t [place] [address] Care Team Providers Care Supervisor Front Name Role Phone Mackenzie Estrada MD Primary Care Provider [phone] Encounter Details Date Type Department Care Team (Late st Contact Info) Description 05/10/2024 Orders Only [facility] MEDICINE 230 [place], [place] [phone] Mackenzie Estrada MD 230 [place] [address] Social History Tobacco Use Types Packs/Day Years [...] 12/11/2024 9:45 AM EDT Office Visit [facility] MEDICINE [address] [place] [address] 12/28/2024 9:45 AM EDT Office Visit [address] [address] Mackenzie Estrada MD [address] [place] [address] documented as of this encounter Goals Goal [...] as of this encounter Care Teams Supervisor Front Relationship Specialty Start Date End Date Mackenzie Estrada MD [address] [place] [address] PCP - General Family Medicine 07/10/20 documented as of this encounter
--- OUTSIDE RECORDS SUMMARY | 2024-11-09 12:44 | XMS_ITS | Encounter Summary ---
Author Organization [employer] Address 75 [facility] 7t [place] [address] Care Team Providers Care Education Analyst Name Role Phone Mackenzie Estrada MD Primary Care Provider [phone] Reason for Visit * Reason Onset Date Comments Error 08/16/2023 Encounter Details Date Type Department Care Team ([facility] Contact Info) Description 08/16/2023 Telephone [facility] MEDICINE 230 [place], [place] [phone] Mackenzie Estrada MD 230 [place], [place] [phone] Error Social History Tobacco Use Types Packs/Day [...] Description 12/11/2024 9:45 AM EDT Office Visit [address] [address] 12/28/2024 9:45 AM EDT Office Visit [address] [address] Mackenzie Estrada MD [address] [place] [address] documented as of this encounter Goals Goal Patient Goal Type Associated Problems Recent Progress Patient-Stated? Author Quit using tobacco (cigarettes, smokeless, etc) Tobacco Use No Corey Lin, PharmD documented as of this encounter Visit Diagnoses Not on filedocumented in this encounter Care Teams Education Analyst Relationship Specialty Start Date End Date Mackenzie Estrada MD [address] [place] [address] PCP - General Family Medicine 07/10/20 documented as of this encounter
--- OUTSIDE RECORDS SUMMARY | 2024-11-09 12:44 | XMS_ITS | Encounter Summary ---
Author Organization [employer] Address 75 [facility] 7t [place] [address] Care Team Providers Care Dumper Bailer Operator Name Role Phone Mackenzie Estrada MD Primary Care Provider Reason for Visit * Reason Comments Med Refill Encounter Details Date Type Department Care Team ([facility] Contact Info) Description 09/22/2022 Refill [facility] 230 [place], [place] [phone] Sarika Palacios ANP 230 [place] [address] Tinea pedis of both feet Social History [...] Upcoming Encounters Date Type Department Care Team ([facility] Contact Info) Description 12/11/2024 9:45 AM EDT Office Visit [facility] MEDICINE [address] [place] [address] 12/28/2024 9:45 AM EDT Office Visit [facility] MEDICINE [address] [place] [address] Mackenzie Estrada MD [address] [place] [address] documented as of this encounter Visit Diagnoses Diagnosis Tinea pedis of both feet documented in this encounter Care Teams Dumper Bailer Operator Relationship Specialty Start Date End Date Mackenzie Estrada MD 230 [place] [address] PCP - General Family Medicine 07/10/20 documented as of this encounter
--- OUTSIDE RECORDS SUMMARY | 2024-11-09 12:44 | XMS_ITS | Encounter Summary ---
Author Organization [employer] [facility] Address [address] [facility] 7t [place] [address] Care Team Providers Care Computer Numerical Control Programmer Name Role Phone Mackenzie Estrada MD Primary Care Provider [phone] Encounter Details Date Type Department Care Team ([facility] Contact Info) Description 03/29/2023 Abstract [facility] MED[facility]INE [address] [place] [id number] Cecilia Henriquez Social History Tobacco Use Types [...] Upcoming Encounters Date Type Department Care Team ([facility] Contact Info) Description 12/11/2024 9:45 AM EDT Office Visit [facility] [address] [place] [address] [phone] 12/28/2024 9:45 AM EDT Office Visit [facility] [address] [place] [address] Mackenzie Estrada MD [address] [place] [phone] documented as of this encounter Procedures Procedure Name Priority Date/Time Associated Diagnosis Comments HM COLONOSCOPY Routine 10/28/2017 documented in this encounter Results * Colonoscopy (10/28/2017) Colonoscopy Normal Normal Narrative Cecilia Henriquez - 10/28/2017 [place] 10 [place] [place] Historical Provider HEALTH MAINTENANCE Edited Result - Final documented in this encounter Visit Diagnoses Not on filedocumented in this encounter Care Teams Computer Numerical Control Programmer Relationship Specialty Start Date End Date Mackenzie Estrada MD [address] [place] [address] PCP - General Family Medicine 07/10/20 documented as of this encounter
--- OUTSIDE RECORDS SUMMARY | 2024-11-09 12:44 | XMS_ITS | Encounter Summary ---
Author Organization [employer] Address [address] [facility] 7t [place] [address] Care Team Providers Care Social Work Therapist Name Role Phone Mackenzie Estrada MD Primary Care Provider [phone] Reason for Visit * Reason Onset Date Comments Appointment Request 08/16/2023 Encounter Details Date Type Department Care Team ([facility] Contact Info) Description 08/16/2023 Telephone [facility] MEDICINE [address] [place], [place] [phone] Mackenzie Estrada MD [address] [place] [address] Appointment Request Social History Tobacco Use Types [...] be seen today. Please contact pt @ [phone] Bolivian Speaker documented in this encounter Plan of Treatment Upcoming Encounters Date Type Department Care Team (Late st Contact Info) Description 12/11/2024 9:45 AM EDT Office Visit [facility] MEDICINE [address] [place] [phone] 12/28/2024 9:45 AM EDT Office Visit [facility] MED[facility]INE [address] [place] [address] Mackenzie Estrada MD [address] [place] [address] documented as of this encounter Goals Goal Patient Goal Type Associated Problems Recent Progress Patient-Stated? Author Quit using tobacco (cigarettes, smokeless, etc) Tobacco Use No Corey Lin, KelechiD documented as of this encounter Visit Diagnoses Not on filedocumented in this encounter Care Teams Social Work Therapist Relationship Specialty Start Date End Date Mackenzie Estrada MD [address] [place] [address] PCP - General Family Medicine 07/10/20 documented as of this encounter
--- OUTSIDE RECORDS SUMMARY | 2024-11-09 12:44 | XMS_ITS | Encounter Summary ---
Author Organization [employer] Address [address] [facility] [address] [place] [address] Care Team Providers Care Fruit Packer Name Role Phone Mackenzie Estrada MD Primary Care Provider [phone] Encounter Details Date Type Department [facility] Description 11/06/2024 Orders Only [facility] External Provider, [facility] Social History Tobacco Use Types Packs/Day Years [...] Description 12/11/2024 9:45 AM EDT Office Visit [address] [address] 12/28/2024 9:45 AM EDT Office Visit [address] [address] Mackenzie Estrada MD [address] [place] [phone] documented as of this encounter Goals Goal Patient Goal Type Associated Problems Recent Progress Patient-Stated? Author Quit using tobacco (cigarettes, smokeless, etc) Tobacco Use No Corey Lin, Bailey documented as of this encounter Procedures Procedure Name Priority Date/Time Associated Diagnosis Comments [facility] LOWER EXTREMITY ARTERIAL DUPLEX BILATERAL WITH SUGAR Routine 11/06/2024 1:05 PM EDT documented in this encounter Results * [facility] Lower Extremity Arterial Duplex Bilateral With Sugar (11/06/2024 1:05 PM EDT) 11/06/2024 1:05 PM EDT [facility] IMAGING - 11/06/2024 2:10 PM EDT ? [facility] ?[address] ?[place] [address] ? Ultrasound Report ? Signed ? Patient: Ovidio Lacy,Ginette ?MR ?? #: [id number] ? : 1975 ?Acct:[id number] ? Age/Sex: 49 / F ?ADM Date: 11/06/24 ? Loc: HO.US ? Attending Dr: Frankie Hughes MD ? Ordering Physician: Frankie Hughes MD ?? Date of Service: 11/06/24 ?? Procedure(s): US arterial duplex BI w/ SUGAR ?? Accession Number(s): [id number] ? cc: Mackenzie Estrada; Frankie Hughes MD [...] DD/ 1305 ? TD/TT: 11/06/24 1352 ? Brake Assembler: ? Procedure Note Lorin, Deepa - 11/06/[address] [address] Ultrasound Report Signed Patient: Ginette Arceo #: [id number] : 1975Acct:[id number] Age/Sex: 49 / FADM Date: 11/06/24 Loc: . Attending Dr: Frankie Hughes MD Ordering Physician: Frankie Hughes MD Date of Service: 11/06/24 Procedure(s): US arterial duplex BI w/ SUGAR Accession Number(s): [id number] cc: Mackenzie Estrada; Frankie Hughes MD EXAMINATION: [...] 11/06/24 1407 DD/ 1305 TD/TT: 11/06/24 1352 Brake Assembler: [facility] External Provider CV VASC ULAR PROCEDURES Final Result [facility] IMAGING [address] [place] [address] documented in this encounter Visit Diagnoses Not on filedocumented in this encounter Additional Health Concerns Assessment Noted Time PHQ-9 Depression Total Score: 2 04/30/20 24 10:41 AM EDT documented as of this encounter Care Teams Fruit Packer Relationship Specialty Start Date End Date Mackenzie Estrada MD [address] [place] [phone] PCP - General Family Medicine 12/10/20 documented as of this encounter
--- OUTSIDE RECORDS SUMMARY | 2024-11-09 12:44 | XMS_ITS | Encounter Summary ---
Author Organization [employer] Address [address] [facility] [address] 7[address] [place] [address] Care Team Providers Care Labor Service Representative Name Role Phone Mackenzie Estrada MD Primary Care Provider [phone] Encounter Details Date Type Department Care Team (Late st Contact Info) Description 04/20/2024 Telephone [facility] MEDICINE [address] [place], [place] [phone] Mackenzie Estrada MD [address] [place], [place] [phone] Social History Tobacco Use Types Packs/Day Years [...] 12/11/2024 9:45 AM EDT Office Visit [address] [address] 12/28/2024 9:45 AM EDT Office Visit [address] [address] Mackenzie Estrada MD [address] [place] [phone] documented as of this encounter Goals Goal Patient Goal Type Associated Problems Recent Progress Patient-Stated? Author Quit using tobacco (cigarettes, smokeless, etc) Tobacco Use No Corey Lin, PharmD documented as of this encounter Visit Diagnoses Not on filedocumented in this encounter Care Teams Labor Service Representative Relationship Specialty Start Date End Date Mackenzie Estrada MD [address] [place] [phone] PCP - General Family Medicine 07/10/20 documented as of this encounter
--- NOTE | 2024-11-09 14:14 | ED_ITS ---
HPI - General Adult General Chief complaint: General Medical Stated complaint: body pain l shoulder and arm Time Seen by Provider: 11/09/24 11:49 History of Present Illness HPI narrative: Patient is a 49-year-old female with a history of DVT history of lupus history of fibromyalgia history of NSTEMI currently being followed by Cardiology and Dr. Zhang complaining of pain to the left shoulder area. The pain is worse with movement of the shoulder. It radiates to the neck. There is no shortness of breath there is no diaphoresis there is no chest pain. Patient describes this is very different than when she had the heart attack. She denies any fever chills. There was no coughing or congestion or upper respiratory symptoms. Patient is from home. Is already on Plavix and also on Eliquis. Patient claims compliance with those medications. There was no trauma. The pain is made worse with abduction of the shoulder. Related Data Home Medications ?Medication ?Instructions ?Recorded ?Confirmed alprazolam 1 mg tablet 1 mg PO BEDTIME PRN Anxiety 12/10/22 10/16/24 albuterol sulfate 90 mcg/actuation 2 puff inhalation Q6H PRN Wheezing 02/20/24 10/16/24 aerosol inhaler gabapentin 400 mg capsule 400 mg PO TID 04/23/24 10/16/24 oxycodone-acetaminophen 7.5 mg-325 1 tab PO Q8H PRN severe pain 04/23/24 10/16/24 mg tablet trazodone 150 mg tablet 150 mg PO BEDTIME PRN anxiety/sleep 04/23/24 10/16/24 cholecalciferol (vitamin D3) 25 25 mcg PO DAILY 05/27/24 10/16/24 mcg (1,000 unit) capsule (Vitamin D3) cyanocobalamin (vitamin B-12) 1,000 mcg IM QMONTH 05/27/24 10/16/24 1,000 mcg/mL injection solution docusate sodium 100 mg capsule 100 mg PO BID PRN Constipation 05/27/24 10/16/24 (Colace) polyethylene glycol 3350 17 17 g PO DAILY PRN Constipation 05/27/24 10/16/24 gram/dose oral powder risperidone 1 mg tablet 0.5 mg PO DAILY PRN 05/27/24 10/16/24 anxiety/agitation/paranoia apixaban 5 mg tablet (Eliquis) 5 mg PO BID 06/12/24 10/16/24 atorvastatin 80 mg tablet 80 mg PO DAILY 06/12/24 10/16/24 ferrous sulfate 325 mg (65 mg 325 mg PO QAM 06/12/24 10/16/24 iron) tablet lidocaine-prilocaine 2.5 %-2.5 % 1 appl topical Q8-12H PRN moderate 06/12/24 10/16/24 topical cream pain nicotine 7 mg/24 hr daily 1 patch transdermal Q24H 06/12/24 10/16/24 transdermal patch sertraline 50 mg tablet (Zoloft) 75 mg PO DAILY 06/12/24 10/16/24 umeclidinium 62.5 mcg/actuation 1 inh inhalation DAILY 06/12/24 10/16/24 blister powder for inhalation (Incruse Ellipta) ursodiol 250 mg tablet 250 mg PO BID 06/12/24 10/16/24 vitamin A 3,000 mcg (10,000 unit) 1 cap PO DAILY 06/12/24 10/16/24 capsule benztropine 0.5 mg tablet 0.5 mg PO DAILY 08/27/24 10/16/24 cetirizine 10 mg tablet 10 mg PO QAM neuropathic pain 08/27/24 10/16/24 clopidogrel 75 mg tablet 75 mg PO DAILY 08/27/24 10/16/24 cyclobenzaprine 5 mg tablet 5 mg PO TID PRN 08/27/24 10/16/24 diclofenac sodium 1 % topical gel 2 g topical QID 08/27/24 10/16/24 famotidine 20 mg tablet 20 mg PO BID 08/27/24 10/16/24 metoprolol succinate 50 mg 50 mg PO DAILY 08/27/24 10/16/24 tablet,extended release 24 hr nicotine (polacrilex) 4 mg gum 4 mg PO DIRECTED 08/27/24 10/16/24 nicotine 14 mg/24 hr daily 1 patch topical QAM 08/27/24 10/16/24 transdermal patch Previous Rx's ?Medication ?Instructions ?Recorded ascorbic acid (vitamin C) 500 mg 1,000 mg (2 x 500 mg) PO QAM #180 05/28/24 tablet (Vitamin C) tabs doxycycline hyclate 100 mg tablet 100 mg PO BID 7 days #14 tabs 11/13/24 prednisone 20 mg tablet 40 mg (2 x 20 mg) PO DAILY #10 tabs 07/08/24 acetaminophen 500 mg tablet 500 mg PO QID PRN pain #30 tabs 07/27/24 (Tylenol Extra Strength) lidocaine 5 % topical patch 1 patch topical DAILY #30 ea 07/27/24 (Lidoderm) pantoprazole 40 mg tablet,delayed 40 mg PO DAILY #90 tabs 07/30/24 release folic acid 1 mg tablet 1 mg PO DAILY #90 tabs 10/16/24 methotrexate sodium 2.5 mg tablet 25 mg (10 x 2.5 mg) PO QWEEK #120 10/16/24 tabs Allergies Allergy/AdvReac Type Severity Reaction Status Date / Time almond [ALMONDS] Allergy Severe ANAPHYLAXIS Verified 11/09/24 10:24 adhesive tape [ADHESIVE TAPE] Allergy Intermediate RASH Verified 11/09/24 10:24 morphine [MORPHINE] Allergy Intermediate GI UPSET, Verified 11/09/24 10:24 difficulty breathing leflunomide AdvReac Intermediate twitching Verified 11/09/24 10:24 tramadol [TRAMADOL] AdvReac Unknown NAUSEA & Verified 11/09/24 10:24 VOMITING Review of Systems 2 Review of Systems: Positive shoulder pain Yes all other systems are reviewed and are negative PMFSH Past Medical History Attestation statement: The following information was validated with the patient. Medical History Iron deficiency Seropositive rheumatoid arthritis Skin lesion Anxiety Achilles tendinitis Superficial femoral artery occlusion Knee pain, left Depression Hx of peripheral pulmonary artery stenosis PAD (peripheral artery disease) History of chemotherapy Cancer of heart Bone cancer Lung cancer Bleeding hemorrhoid Degeneration, intervertebral disc, lumbar Chronic GERD Degeneration of intervertebral disc at C4-C5 level Osteoarthritis of spine with radiculopathy, lumbar region Fibromyalgia Esophageal dysphagia Vitamin D deficiency Systemic lupus erythematosus Seropositive rheumatoid arthritis Rheumatoid arthritis involving multiple sites Gallstones Stress incontinence in female Nocturia Urgency-frequency syndrome De Quervain's disease (tenosynovitis) Depressive disorder Acute arthritis Hodgkin disease Surgical History History of heart surgery History of surgical removal of skin lesion (~07/13/23) History of angioplasty of vein History of biopsy H/O tubal ligation Hx of endoscopy Hx laparoscopic cholecystectomy Hx of colonoscopy History of esophagogastroduodenoscopy (EGD) History of repair of inguinal hernia History of lymph node dissection of left axilla Family History Family History Maternal Grandmother Ovarian cancer Social History Social History Household Members: Significant Other Housing: Apartment Are you a primary care asst to a significant other at home: No Unable to assess alcohol history related to: Unknown Alcohol intake: never Comment: son at bedside Patient Tobacco Use Status: Never used Tobacco Tobacco use type: Cigarette Cigarette Packs Per Day: 1 Cigarettes Per Day: 20.0 Smoked in Last 30 Days: Yes Use of substances other than those prescribed or required for medical reasons: No Substance Use Type: Marijuana Advance Directives: Yes Advance Directives on File: Yes Advance Directives Date on File: 02/24/24 service: No Current occupational status: disabled 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 Oriented X3. No acute distress. Eyes: Pupils equal, round and reactive to light. ENT: Pharynx normal. Neck: Normal inspection. Neck supple. No lymph nodes noted. No crepitus CVS: Normal heart rate and rhythm. Pulses normal. Normal S1 and S2 Respiratory: No respiratory distress. Breath sounds normal. No Wheezing. No rales Abdomen: Soft and nontender. No rigidity. No distention. good BS x4 Skin: Skin warm and dry. Normal skin color. Normal skin turgor. Extremities: No lower extremity edema. Neurovascular intact to all extremities. No Lacerations. No Rash. Left upper extremity exam There is good sensation over the axillary median radial and ulnar nerve on the left side. There is good abduction of the shoulder. There is good internal external rotation of the shoulder. His good movement of the elbow hand. There is good radial pulses. Patient has good sensation over median radial and ulnar nerves. Good capillary refill and skin is intact. Neuro: Oriented X 3. No motor deficit. No sensory deficit. Moving all extermities. No slurred speech Medical Decision Making Medical Decision Making [facility] Narrative: Patient's pain atypical for ACS nevertheless a set of cardiac enzymes were done they are negative the pain has been ongoing since yesterday. Unlikely this is secondary to ACS my interpretation of patient's EKG showed a sinus rhythm heart rate is 70 [place] QRS QTC normal there is Q-waves noted over the inferior lead likely resulting from previous NSTEMI. Patient's BNP is 108 there is no signs of congestive heart failure. Blood count is baseline. Patient white count is normal there is no signs of infection doubt patient had a DVT as there was no trauma there is no IV insertion and patient is on Eliquis. Patient's shoulder x-ray by my interpretation showed no acute fracture. Will discharge patient home. Close follow-up on an outpatient basis. Differential Diagnosis Differential Diagnoses: The differential diagnosis associated with the presentation includes Shoulder sprain, cervical radiculopathy Lab Data [facility] Lab Attestation statement: I reviewed the patient's lab results. 11/09/24 10:36 11/09/24 10:36 Labs: Lab Results 11/09/24 Range/Units 10:36 WBC 7.3 (4.8-10.8) X10*3/uL RBC 3.80 L (4.20-5.50) X10*6/uL Hgb 10.6 L (12.0-16.0) g/dl Hct 32.0 L (37.0-47.0) % MCV 84.2 (80.0-98.0) fL MCH 27.9 (27.0-33.0) pg MCHC 33.1 (31.0-35.0) g/dl RDW 15.7 (11.0-16.0) % Plt Count 354 (160-400) X10*3/uL MPV 10.1 (9.4-12.3) fL Immature Gran % (Auto) 0.3 (0.0-0.4) % Neut % (Auto) 57.2 (45-73) % Lymph % (Auto) 36.5 (20-40) % [place] % (Auto) 5.2 (2-11) % Eos % (Auto) 0.5 (0-4) % Baso % (Auto) 0.3 (0-2) % Lymph # (Auto) 2.7 (1.2-4.9) X10*3/uL [place] # (Auto) 0.4 (0.1-1.2) X10*3/uL Eos # (Auto) 0.0 (0.0-0.4) X10*3/uL Baso # (Auto) 0.0 (0.0-0.2) X10*3/uL Abs Immat Gran (auto) 0.02 (0.00-0.03) X10*3/uL Absolute Neuts (auto) 4.2 (2.0-8.3) x10*3/uL Absolute Nucleated RBC 0.000 (0.0-0.012) X10*3/uL Nucleated RBC % (auto) 0.0 (0.0-0.2) /100WBC PT 11.5 (10.9-12.4) SEC INR 1.0 (0.9-1.1) Sodium 140 (135-145) mmol/L Potassium 3.8 (3.3-5.1) mmol/L Chloride 109 H (96-108) mmol/L Carbon Dioxide 24 (22-29) mmol/L Anion Gap 11 L (12-20) BUN 13 (9-16) mg/dL Creatinine 0.59 (0.5-1.4) mg/dL Estim Creat Clear Calc 120.5 Estimated GFR > 60 Random Glucose 93 (60-115) mg/dL Calcium 10.0 (8.4-10.2) mg/dL Magnesium 2.0 (1.6-2.6) mg/dL Total Bilirubin 0.2 (0.0-1.0) mg/dL AST 27 (5-31) U/L ALT 31 (0-31) U/L Alkaline Phosphatase 112 (39-117) U/L Troponin I High Sens < 2.7 (<3.5-17.0) ng/L B-Natriuretic Peptide 108 H (<100) pg/mL Total Protein 8.9 H (6.5-8.0) g/dL Albumin 3.6 (3.5-5.0) g/dL Independent Interpretation I performed an independent interpretation of an: EKG (My interpretation of patient's EKG showed a sinus rhythm heart rate is 70 NJ QRS QTC normal there is Q-waves over the inferior leads.) and Plain X-Ray (X-ray of the shoulder was grossly negative. Chest x-ray was grossly negative) Radiology Impression Discussion of test interpretation with radiology: I have reviewed the radiologist's reading. External Record Review External record reviewed: Inpatient record Prescription Management Suggested patient Tylenol for pain Chronic Conditions Patient?s care impacted by: Hypertension History of CAD history of lupus history of DVT Social Determinants Patient?s care significantly limited by Social Determinants of Health including: Problems related to primary support group Discharge Plan Discharge Clinical Impression: Acute shoulder pain Patient Disposition: Home, Self-Care Instructions: Shoulder Pain (ED) Prescriptions: No Action ascorbic acid (vitamin C) [Vitamin C] 500 mg tablet 1,000 mg PO QAM Qty: 180 2RF pantoprazole 40 mg tablet,delayed release (DR/EC) 40 mg PO DAILY Qty: 90 1RF atorvastatin 80 mg tablet 80 mg PO DAILY lidocaine-prilocaine 2.5-2.5 % cream 1 appl topical Q8-12H PRN (Reason: moderate pain) ferrous sulfate 325 mg (65 mg iron) tablet 325 mg PO QAM ursodiol 250 mg tablet 250 mg PO BID sertraline [Zoloft] 50 mg tablet 75 mg PO DAILY Eliquis 5 mg tablet 5 mg PO BID Incruse Ellipta 62.5 mcg/actuation blister with device 1 inh INHALATION DAILY vitamin A 3,000 mcg (10,000 unit) capsule 1 cap PO DAILY nicotine 7 mg/24 hr Patch 24 Hour 1 patch TRANSDERMAL Q24H doxycycline hyclate 100 mg tablet 100 mg PO BID 7 Days Qty: 14 0RF prednisone 20 mg tablet 40 mg PO DAILY Qty: 10 0RF albuterol sulfate 90 mcg/actuation Hfa Aerosol Inhaler 2 puff INHALATION Q6H PRN (Reason: Wheezing) polyethylene glycol 3350 17 gram/dose powder 17 g PO DAILY PRN (Reason: Constipation) risperidone 1 mg tablet 0.5 mg PO DAILY PRN (Reason: anxiety/agitation/paranoia) cholecalciferol (vitamin D3) [Vitamin D3] 25 mcg (1,000 unit) capsule 25 mcg PO DAILY docusate sodium [Colace] 100 mg capsule 100 mg PO BID PRN (Reason: Constipation) cyanocobalamin (vitamin B-12) 1,000 mcg/mL Solution 1,000 mcg IM QMONTH acetaminophen [Tylenol Extra Strength] 500 mg tablet 500 mg PO QID PRN (Reason: pain) Qty: 30 0RF lidocaine [Lidoderm] 5 % adhesive patch,medicated 1 patch topical DAILY Qty: 30 0RF Rx Instructions: leave on most painful area for up to 12 hrs alprazolam 1 mg tablet 1 mg PO BEDTIME PRN (Reason: Anxiety) trazodone 150 mg tablet 150 mg PO BEDTIME PRN (Reason: anxiety/sleep) oxycodone-acetaminophen 7.5-325 mg tablet 1 tab PO Q8H PRN (Reason: severe pain) gabapentin 400 mg capsule 400 mg PO TID methotrexate sodium 2.5 mg tablet 25 mg PO QWEEK Qty: 120 1RF Rx Instructions: Split dose into 5 tabs in the morning and 5 tabs at night folic acid 1 mg tablet 1 mg PO DAILY Qty: 90 1RF benztropine 0.5 mg tablet 0.5 mg PO DAILY cetirizine 10 mg tablet 10 mg PO QAM clopidogrel 75 mg tablet 75 mg PO DAILY cyclobenzaprine 5 mg tablet 5 mg PO TID PRN diclofenac sodium 1 % gel 2 g topical QID famotidine 20 mg tablet 20 mg PO BID nicotine (polacrilex) 4 mg gum 4 mg PO DIRECTED metoprolol succinate 50 mg tablet extended release 24 hr 50 mg PO DAILY nicotine 14 mg/24 hr patch 24 hour 1 patch topical QAM Referrals: Mackenzie Estrada MD [Primary Care Provider] - 11/12/24 Print Language: Indonesian
[2024-11-09 14:34] VITALS: BP 142/73; PULSE 62; RESP 20; TEMP 36.8; O2SAT 100
== END 2024-11-09 14:34 | disposition home or self-care (01) ==
PROVIDERS: Emergency Provider Emergency Medicine Emergency Medical Services; PCP General Practice
DX: R07.89 Other chest pain (principal); M79.10 Myalgia, unspecified site; M25.512 Pain in left shoulder; M54.2 Cervicalgia; Z86.718 Personal history of other venous thrombosis and embolism; Z79.899 Other long term (current) drug therapy; Z79.01 Long term (current) use of anticoagulants
CPT/HCPCS: 36415; 71046; 73030; 80053; 83735; 83880; 84484; 85025; 85610; 93005; 99283; 99284

== ENCOUNTER → 2024-11-09 10:28 | Outpatient (BNV) | payer MEDICAID, SELFPAY | PROVIDERS: Emergency Provider Emergency Medicine Emergency Medical Services; PCP General Practice; Visit Provider Internal Medicine Cardiovascular Disease | DX: I44.4 Left anterior fascicular block (principal) | CPT/HCPCS: 93010 ==

== ENCOUNTER → 2024-11-09 10:45 | Outpatient (BNV) | payer MEDICAID, SELFPAY | PROVIDERS: PCP General Practice; Visit Provider Radiology Diagnostic Radiology | DX: R07.9 Chest pain, unspecified (principal); M25.512 Pain in left shoulder; R22.32 Localized swelling, mass and lump, left upper limb | CPT/HCPCS: 71046; 73030 ==

== ENCOUNTER 2024-11-20 08:41 | Outpatient (AMB) | payer MEDICAID, SELFPAY ==
--- NOTE | 2024-11-20 09:02 | MHC.OFFVIS ---
Intake Visit Reasons: 1y follow up s/p Arterial US 11/06/24 Intake Note: Patient presents for follow up arterial US. She is ambulating with a cane , states her right leg is very painful. She is limping. Accompanied by: Self / Same As Patient Allergies almond [ALMONDS] Allergy (Severe, Verified 11/20/24 09:04) ANAPHYLAXIS adhesive tape [ADHESIVE TAPE] Allergy (Intermediate, Verified 11/20/24 09:04) RASH morphine [MORPHINE] Allergy (Intermediate, Verified 11/20/24 09:04) GI UPSET, difficulty breathing leflunomide Adverse Reaction (Intermediate, Verified 11/20/24 09:04) twitching tramadol [TRAMADOL] Adverse Reaction (Unknown, Verified 11/20/24 09:04) NAUSEA & VOMITING HPI HPI 1y follow up s/p Arterial US 11/06/24: Details: The patient is a 49-year-old female presenting with peripheral vascular disease for follow-up after a prior endovascular intervention. She reports right knee pain believed to be related to lupus and arthritis, which has been exacerbated by past medication use. This condition significantly hinders her mobility, requiring the use of a cane. She has reported difficulty with ambulation, leading to decreased exercise tolerance. The patient has a background of lupus and arthritis, complicating her vascular disease treatment. She quit smoking cigarettes less than a year ago due to concerns about cardiovascular health, specifically related to peripheral vascular disease, although marijuana use continues. There were no acute exacerbations reported outside the context of the knee issues. She reports she can walk about a block. [facility] Medical History (Updated 11/20/24 @ 12:12 by Frankie Hughes MD) PAD (peripheral artery disease) Skin lesion Anxiety Achilles tendinitis Superficial femoral artery occlusion Knee pain, left Depression Hx of peripheral pulmonary artery stenosis History of chemotherapy Cancer of heart Bone cancer Lung cancer Iron deficiency Seropositive rheumatoid arthritis Bleeding hemorrhoid Degeneration, intervertebral disc, lumbar Chronic GERD Degeneration of intervertebral disc at C4-C5 level Osteoarthritis of spine with radiculopathy, lumbar region Fibromyalgia Esophageal dysphagia Vitamin D deficiency Systemic lupus erythematosus Seropositive rheumatoid arthritis Rheumatoid arthritis involving multiple sites Gallstones Stress incontinence in female Nocturia Urgency-frequency syndrome De Quervain's disease (tenosynovitis) Depressive disorder Acute arthritis Hodgkin disease Surgical History History of heart surgery History of surgical removal of skin lesion (~07/13/23) History of angioplasty of vein History of biopsy H/O tubal ligation Hx of endoscopy Hx laparoscopic cholecystectomy Hx of colonoscopy History of esophagogastroduodenoscopy (EGD) History of repair of inguinal hernia History of lymph node dissection of left axilla Family History Maternal Grandmother Ovarian cancer Social History Household Members: Significant Other Housing: Apartment Are you a primary transitional care liaison to a significant other at home: No Unable to assess alcohol history related to: Unknown Alcohol intake: never Comment: son at bedside Patient Tobacco Use Status: Never used Tobacco Tobacco use type: Cigarette Cigarette Packs Per Day: 1 Cigarettes Per Day: 20.0 Substance Use Type: Marijuana Advance Directives Date on File: 02/24/24 service: No Current occupational status: disabled 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 of Systems Const All systems reviewed & are unremarkable except as noted in HPI and below Reports no additional complaints ENT Reports Normal hearing present Card Denies chest pain, Denies chest pain at rest, Denies chest pain with activity and Denies pedal edema Resp Denies cough GI Denies abdominal pain Musc Denies abnormal gait, Denies muscle cramps and Denies radiating pain into limb Skin/Breast Denies skin ulcer and Denies wounds Neuro Reports Normal hearing present and Denies abnormal gait Psych Reports no additional complaints Physical Exam Const General: cooperative, healthy appearing and comfortable Orientation/consciousness: oriented to person, oriented to place and oriented to time HEENT Head: Yes normal to inspection Neck Neck: Yes normal visual inspection Carotids: no bruits Chest Chest palpation & inspection: normal inspection of the chest Resp Effort & Inspection: normal respiratory effort and able to speak in complete sentences Auscultation: clear to auscultation bilaterally, no crackles, no rales, no rhonchi and no wheezes Cardio Other: Bilateral DP signals Rate: regular rate Rhythm: regular rhythm Heart sounds: S1 normal heart sound present and S2 normal heart sound present Bruits: no carotid bruits Peripheral pulses: Peripheral pulses 2+ throughout GI Inspection: Yes normal to inspection Skin Wounds: no wounds Hair: normal Neuro General: oriented to person, oriented to place and oriented to time Cranial nerves: Yes CN's II-XII intact bilaterally and Yes Normal hearing present Cognition (Neuro): normal cognition Motor exam (neuro): 5/5 motor strength present throughout Extrem Other: venous exam: No significant superficial varicosities or spider telangiectasias, minimal edema General: No clubbing, No cyanosis and No edema Psych Appearance: grossly normal Mental Status: mental status grossly normal Speech and movement: Normal speech and movement present Assessment & Plan Assessment & Plan (1) PAD (peripheral artery disease): Comment: 04/21/2022 - diagnostic angiogram - left common iliac occlusion, right SFA stenosis at [place] canal 06/09/2022 - right SFA angioplasty and stent via radial approach Code(s): I73.9 - Peripheral vascular disease, unspecified Category: Medical Plan: In short patient has stable claudication. I did review the pathophysiology of peripheral vascular disease with the patient. In addition we did discuss routine conservative measures including a healthy diet and the importance of exercise and ambulation. We did discuss risk factor modification. The patient will continue to to follow-up with surveillance follow-up in approximately 1 year. Thank you for allowing us to participate in this patient's care. If there are any questions or concerns please do not hesitate to contact us. Orders: Orders US arterial duplex LE BI 1 Year I73.9 - Peripheral vascular disease, unspecified Coding Level of Care Code Est Pt Level 4 (33185) Complex EM visit Add On G2211 Diagnoses PAD (peripheral artery disease) I73.9
--- OUTSIDE RECORDS SUMMARY | 2024-11-20 09:03 | XMS_ITS | Encounter Summary ---
Author Organization [employer] Address [address] 7t [place] [address] Care Team Providers Care Personnel Representative Name Role Phone Mackenzie Estrada MD Primary Care Provider Reason for Visit * Reason Comments Med Refill Encounter Details Date Type Department Care Team ([facility] st Contact Info) Description 06/03/2023 Refill [facility] MED[facility]INE [address] [place], [place] [phone] Mackenzie Estrada MD [address] [place], [place] [phone] Pain in both hands Social History Tobacco [...] 12/11/2024 9:45 AM EDT Office Visit [address] [address] 12/28/2024 9:45 AM EDT Office Visit [address] [address] Mackenzie Estrada MD [address] [place] [address] documented as of this encounter Goals Goal Patient Goal Type Associated Problems Recent Progress Patient-Stated? Author Quit using tobacco (cigarettes, smokeless, etc) Tobacco Use No Corey Lin, PharmD documented as of this encounter Visit Diagnoses Diagnosis Pain in both hands documented in this encounter Care Teams Personnel Representative Relationship Specialty Start Date End Date Mackenzie Estrada MD [address] [place] [address] PCP - General Family Medicine 07/10/20 documented as of this encounter
--- OUTSIDE RECORDS SUMMARY | 2024-11-20 09:03 | XMS_ITS | Encounter Summary ---
Author Organization [employer] Address [address] [facility] [address] 7t [place] [address] Care Team Providers Care Abstractor Name Role Phone Mackenzie Estrada MD Primary Care Provider [phone] Reason for Visit * Reason Comments Med Refill Encounter Details Date Type Department Care Team ([facility] Contact Info) Description 08/19/2024 Refill [facility] MEDICINE [address] [place], [place] [phone] Mackenzie Estrada MD [address] [place], [place] [phone] Social History Tobacco Use Types Packs/Day Years [...] 12/11/2024 9:45 AM EDT Office Visit [facility] [address] [place] [address] 12/28/2024 9:45 AM EDT Office Visit [address] [address] Mackenzie Estrada MD [address] [place] [address] documented as of this encounter Goals Goal [...] documented as of this encounter Care Teams Abstractor Relationship Specialty Start Date End Date Mackenzie Estrada MD [address] [place] [phone] PCP - General Family Medicine 07/10/20 documented as of this encounter
--- OUTSIDE RECORDS SUMMARY | 2024-11-20 09:03 | XMS_ITS | Encounter Summary ---
Author Organization [employer] Address [address]t [place] [address] Care Team Providers Care Dust Collector Ore Crushing Name Role Phone Mackenzie Estrada MD Primary Care Provider Reason for Visit * Reason Comments Med Refill Encounter Details Date Type Department Care Team ([facility] st Contact Info) Description 06/01/2023 Refill [facility] MEDICINE [address] [place], [place] [phone] Mackenzie Estrada MD 230 [place], [place] [phone] Pain in both hands Social History Tobacco [...] Description 12/11/2024 9:45 AM EDT Office Visit [address] [address] 12/28/2024 9:45 AM EDT Office Visit [address] [address] Mackenzei Estrada MD [address] [place] [address] documented as of this encounter Goals Goal Patient Goal Type Associated Problems Recent Progress Patient-Stated? Author Quit using tobacco (cigarettes, smokeless, etc) Tobacco Use No Corey Lin, PharmD documented as of this encounter Visit Diagnoses Diagnosis Pain in both hands documented in this encounter Care Teams Dust Collector Ore Crushing Relationship Specialty Start Date End Date Mackenzie Estrada MD [address] [place] [address] PCP - General Family Medicine 07/10/20 documented as of this encounter
--- OUTSIDE RECORDS SUMMARY | 2024-11-20 09:03 | XMS_ITS | Encounter Summary ---
Author Organization [facility] Address [address] [facility] [address] 7t [place] [address] Care Team Providers Care Analysis Reporting Developer Name Role Phone Mackenzie Estrada MD Primary Care Provider [phone] Encounter Details Date Type Department Care Team ([facility] Contact Info) Description 03/04/2023 Orders Only [facility] MEDICINE [address] [place] [address] Kat Yo MD [address] [place] [address] [phone] Social History Tobacco Use Types Packs/Day Years [...] Upcoming Encounters Date Type Department Care Team ([facility] Contact Info) Description 12/11/2024 9:45 AM EDT Office Visit [facility]INE [address] [place] [address] [phone] 12/28/2024 9:45 AM EDT Office Visit [facility] [address] [place] [address] Mackenzie Estrada MD [address] [place] [address] [phone] documented as of this encounter Visit Diagnoses Not on filedocumented in this encounter Care Teams Analysis Reporting Developer Relationship Specialty Start Date End Date Mackenzie Estrada MD [address] [place] [address] PCP - General Family Medicine 07/10/20 documented as of this encounter
--- OUTSIDE RECORDS SUMMARY | 2024-11-20 09:03 | XMS_ITS | Encounter Summary ---
Author Organization [employer] Address [address] 7[address] [place] [address] Care Team Providers Care Foreclosure Paralegal Name Role Phone Mackenzie Estrada MD Primary Care Provider [phone] Encounter Details Date Type Department Care Team (Late st Contact Info) Description 06/03/2023 Orders Only [facility] MEDICINE [address] [place], [place] [phone] Mackenzie Estrada MD [address] [place], [place] [phone] Pain in both hands Social History Tobacco [...] Description 12/11/2024 9:45 AM EDT Office Visit [facility] MEDICINE [address] [place] [address] 12/28/2024 9:45 AM EDT Office Visit [facility]INE [address] [place] [address] Mackenzie Estrada MD [address] [place] [phone] documented as of this encounter Goals Goal [...] both hands INFLUENZA A B2 ID NOW ([employer]) Routine 06/03/2023 4:34 PM EDT Pain in both hands COVID-19 ID NOW ([facility]) Routine 06/03/2023 4:34 PM EDT Pain in both hands documented in this encounter Results * XR Chest 2 Views (06/25/2023 12:15 PM EST) Anatomical Region Laterality Modality Chest Radiographic Rin ging 06/25/2023 12:1 5 PM EST Narrative 06/03/2023 5:47 PM EDT ? [facility] ?[address] ?[place] [address] ?XRay Report ? Signed ? Patient: Ovidio Lacy,Ginette ?MR ?? #: [id number] ? : 1975 ?Acct:[id number] ? Age/Sex: 47 / F ?ADM Date: 06/25/23 ? Loc: HO.ED ? Attending Dr: ? Ordering Physician: Treasure Clemons ?? Date of Service: 06/25/23 ?? Procedure(s): XR chest 2V ?? Accession Number(s): [id number] ? cc: Mackenzie Estrada; Treasure Clemons ? [...] 1230 ? DD/ 1215 ? TD/TT: ? Field Test Engineer: MSM ? Procedure Note Lorin, Image - 06/25/[address] [address] XRay Report Signed Patient: Ginette ArceoMR #: [id number] : 1975Acct:[id number] Age/Sex: 47 / FADM Date: 06/25/23 Loc: HO.ED Attending Dr: Ordering Physician: Treasure Clemons Date of Service: 06/25/23 Procedure(s): XR chest 2V Accession Number(s): [id number] cc: Mackenzie sEtrada; Treasure Clemons EXAMINATION: XR CHEST CLINICAL INFORMATION: Chest pain COMPARISON: None available. TECHNIQUE: 2 views of the chest were obtained. FINDINGS: No significant abnormality is noted involving the heart, lungs, mediastinum, bony thorax or soft tissues. XR/XR chest 2V IMPRESSION: Unremarkable chest examination. Dictated By: Jamie Avelar MD Signed By: <Electronically signed by Jamie Avelar MD in OV> 06/25/23 1230 DD/ 1215 TD/TT: Field Test Engineer: MAGGIE [facility] External Provider IMG XR PROCEDURES Edited Result - Final * (ABNORMAL) Urinalysis, Complete, with Reflex to Culture (06/03/2023 4:49 PM EDT) Color Urine Yellow [facility] Appearance Urine Clear [facility] PH 5.5 5.0 - 9.0 [facility] Glucose Urine UA Negative Negative mg/dL [facility] Urine Blood Large (3+)(A) Negative [facility] Specific [place] - Urine 1.025 1.005 - 1.025 [facility] Urine Protein Negative Neg-Trace mg/dL [facility] Urine Ketones Negative Negative mg/dL [facility] Nitrite Urine Negative Negative [facility] Leukocyte Esterase Urine Negative Negative [facility] RBC Urine >20(A) 0 - 2 /HPF [facility] Urine WBC 0-5 0 - 5 /HPF [facility] Urine Squamous Epithelial Cell 11-20 0 - 2 /HPF [facility] Urine Bacteria 1+ None Seen [facility] Hyaline Casts, Urine 0-2 0 - 2 /LPF [facility] 06/03/2023 4:49 PM EDT 06/03/2023 4:52 PM EDT Narrative [facility] - 06/03/2023 5:00 PM EDT Urine, Clean Catch us Generic External Data Provider LAB URINE ORDERAB LES Final Result Performing Organization Address [facility]/ZIP Co de Phone Number [facility] [address] [place] [phone] * (ABNORMAL) Urinalysis w/reflex microscopic (06/03/2023 4:49 PM EDT) Color Urine Yellow [facility] Appearance Urine Clear [facility] PH 5.5 5.0 - 9.0 [facility] Glucose Urine UA Negative Negative mg/dL [facility] Urine Blood Large (3+)(A) Negative [facility] Specific [place] - Urine 1.025 1.005 - 1.025 [facility] Urine Protein Negative Neg-Trace mg/dL [facility] Urine Ketones Negative Negative mg/dL [facility] Nitrite Urine Negative Negative [facility] Leukocyte Esterase Urine Negative Negative [facility] 06/03/2023 4:49 PM EDT 06/03/2023 4:52 PM EDT Narrative [facility] - 06/03/2023 4:57 PM EDT Urine, Clean Catch us Generic External Data Provider LAB URINE ORDERAB LES Final Result Performing Organization Address [facility]/ZIP Co de Phone Number [facility] [address] [place] [phone] * Influenza A B2 ID NOW ([facility]) (06/03/2023 4:34 PM EDT) IDNOW SERIAL# [id number] [facility] Influenza A Negative Negative [facility] Influenza B2 Negative Negative [facility] Influenza A B2 Note See Note [facility] Comment:The [place]ona ID NOW In fluenza [...] LAB MICROBIOLOGY - GENERAL ORDERABLES Final Result [facility] [address] [place] [phone] * COVID-19 ID NOW ([employer]) (06/03/2023 4:34 PM EDT) IDNOW SERIAL# [id number] [facility] COVID-19 TEST Negative Negative [facility] COVID-19 NOTE See Note [facility] Comment: Results are for the identification of SARS-CoV2 RNA. TheSARS-CoV2 RNA is generally detectable in respiratory samplesduring the acute phase of infection. Positive results areindicative of the presence of SARS-CoV-2 RNA; clinicalcorrelation with patient history and other diagnosticinformation is necessary to determine patient infectionstatus. Positive results do not rule out bacterial infectionor co- infection with other viruses.Testing facilities within the [facility] and [facility] are required to report all positive [...] use by authorized laboratories.Testing performed on the [employer] ID NOW utilizing NAAT. 06/03/2023 4:34 PM EDT 06/03/2023 4:40 PM EDT us Generic External Data Provider LAB MOLECULAR ARNAV GNOSTICS ORDERABLES Final Result [facility] [address] [place] [phone] documented in this encounter Visit Diagnoses Diagnosis Pain in both hands documented in this encounter Care Teams Foreclosure Paralegal Relationship Specialty Start Date End Date Mackenzie Estrada MD [address] [place] [phone] PCP - General Family Medicine 07/10/20 documented as of this encounter
--- OUTSIDE RECORDS SUMMARY | 2024-11-20 09:03 | XMS_ITS | Encounter Summary ---
Author Organization [employer] Address [address] 7[address] [place] [address] Care Team Providers Care Soaping Machine Back Tender Name Role Phone Mackenzie Estrada MD Primary Care Provider [phone] Encounter Details Date Type Department Care Team (Late st Contact Info) Description 12/13/2023 Orders Only [facility] MEDICINE [address] [place], [place] [phone] Mackenzie Estrada MD [address] [place], [place] [phone] Pain in both hands Social History Tobacco [...] 12/11/2024 9:45 AM EDT Office Visit [address] [address] 12/28/2024 9:45 AM EDT Office Visit [address] [address] Mackenzie Estrada MD [address] [place] [phone] documented as of this encounter Goals Goal Patient Goal Type Associated Problems Recent Progress Patient-Stated? Author Quit using tobacco (cigarettes, smokeless, etc) Tobacco Use No Corey Lin, Bailey documented as of this encounter Visit Diagnoses Diagnosis Pain in both hands documented in this encounter Care Teams Soaping Machine Back Tender Relationship Specialty Start Date End Date Mackenzie Estrada MD [address] [place] [phone] PCP - General Family Medicine 07/10/20 documented as of this encounter
--- OUTSIDE RECORDS SUMMARY | 2024-11-20 09:03 | XMS_ITS | Encounter Summary ---
Author Organization [facility] Address [address] [facility] 7t [place] [address] Care Team Providers Care Career Development Coordinator Name Role Phone Mackenzie Estrada MD Primary Care Provider [phone] Reason for Visit * Reason Comments Med Refill Encounter Details Date Type Department Care Team ([facility] Contact Info) Description 12/10/2022 Refill [facility] MEDICINE [address] [place] [phone] Mackenzie Estrada MD [address] [place], [place] [phone] Pain in both hands Social History Tobacco [...] Encounters Date Type Department Care Team ([facility] Contact Info) Description 12/11/2024 9:45 AM EDT Office Visit [facility]INE [address] [place] [address] 12/28/2024 9:45 AM EDT Office Visit [facility]INE [address] [place] [address] Mackenzie Estrada MD [address] [place], [place] [phone] documented as of this encounter Visit Diagnoses Diagnosis Pain in both hands documented in this encounter Care Teams Career Development Coordinator Relationship Specialty Start Date End Date Mackenzie Estrada MD [address] [place] [address] PCP - General Family Medicine 07/10/20 documented as of this encounter
--- OUTSIDE RECORDS SUMMARY | 2024-11-20 09:03 | XMS_ITS | Clinical Summary ---
Author Organization [employer] Address [address] [facility] [address] [place] [address] Care Team Providers Care Hop Weigher Name Role Phone Mackenzie Estrada MD Primary Care Provider [phone] Allergies Active Allergy Reactions Criticality Noted Date Comments [place] (Diagnostic) 05/23/2020 [place] Oil Anaphylaxis High 07/19/2022 Morphine 06/02/2015 Other [...] 05/26/20 22 Active Sharps Container (GUARDIAN Sharps Dietary Director) misc 06/15/20 22 Active Vitamin D High Potency 25 MCG (1000 UT) capsule Take 25 mcg by mouth in the morning. 12/11/19 23 Active beta carotene (vitamin A) 3 MG (18545 UT) capsule Take by mouth in the [...] MOUTH EVERY WEEK 02/24/20 24 Active Umeclidinium [place] (Incruse Ellipta) 62.5 MCG/ACT aerosol powderIndicati ons:Subacute [...] MG tabletIndicati ons:NSTEMI (non-ST elevated myocardial infarction) ([facility]) Take 1 tablet (75 mg) by mouth Once per day. 90 tablet 3 09/28/19 25 026 Active apixaban (Eliquis) 5 MG tablet TAKE [...] pain 50 g 2 11/07/19 25 Active oxyCODONE-acet aminophen (Percocet) 7.5-325 MG tabletIndicati ons:Osteonecro sis of hip with collapse of femoral head present on x-ray ([facility]) Take 1 tablet by mouth every 6 (six) hours if needed for severe pain for up to 28 days. 112 tablet 11/14/19 25 025 Active Eliquis 5 MG tablet TAKE 1 TABLET BY MOUTH TWICE DAILY IN THE MORNING AND IN THE EVENING 180 tablet 1 05/30/20 24 025 Discontinued Diclofenac Sodium 1 % gelIndications :Chronic low back pain, unspecified back pain laterality, unspecified whether sciatica present apply 2 gram by topical route 4 times every day as needed for hand pain 50 g 2 09/28/19 25 025 Discontinued(Re order (will not trigger notification to Pharmacy)) oxyCODONE-acet aminophen (Percocet) 7.5-325 MG tabletIndicati ons:Osteonecro sis of hip with collapse of femoral head present on x-ray ([facility]) Take 1 tablet by mouth every 6 (six) hours if needed for severe pain for up to 28 days. Do not start before October 17, 2024. 112 tablet 10/18/19 025 Discontinued(Re order (will not trigger notification to Pharmacy)) neomycin-polym yxin-hydrocort isone (Cortisporin) 3.5-32249-4 otic suspensionIndi cations:Acute otitis externa of both ears, unspecified type Administer 3-4 drops into affected ear(s) 4 times daily for 7 days. 10 mL 11/07/19 25 025 doxycycline (Vibra-Tabs) 100 MG tabletIndicati ons:Cellulitis of upper extremity, unspecified laterality Take 1 tablet (100 mg) by mouth 2 times daily for 7 days. Take with a full glass of water and do not lie down for at least 30 minutes after. 14 tablet 11/07/19 025 cephalexin (Keflex) 500 MG capsuleIndicat ions:Celluliti s of upper extremity, unspecified laterality Take 1 capsule (500 mg) by mouth 4 times daily for 7 days. 28 capsule 11/07/19 025 Active Problems Problem Noted Date Diagnosed Date Long-term current use of opiate analgesic 2024 Overview (09/28/2024): Medication: Percocet 7.5/325mg, increasing to every 6 hours prn at 09/2024 refill Indication: Rheumatoid arthritis Last OFF TRACK BETTING MANAGER Agreement: 06/12/24 Tier: II (Q3 months visits), Dr. Estrada 08/15/24 Assessment & Plan (11/06/2024 1:49 PM EDT): Timeline: - 11/06/24: Group - Utox/pill count as expected Assessment & Plan (09/28/2024 8:21 AM EST): Has Narcan at home OFF TRACK BETTING MANAGER agreement UTD Seeing group pain visits for OFF TRACK BETTING MANAGER Assessment & Plan (09/11/2024 5:03 PM EST): [...] factor 01/26/2024 Overview (08/14/2024): - Following with [facility] Rheum: Dr. Castro Assessment & Plan [...] to go back to her previous dose, OFF TRACK BETTING MANAGER nurse informed about my plan, I instructed [...] week as per Rheumatology. Rx sent to [facility] and they will continue refill [...] thrombosis) 05/23/2020 Overview (09/28/2023): 01/2005 Right [facility] current use of anticoagulant 0 Personal history of Hodgkin lymphoma 05/09/2020 Axillary lymphadenopathy 05/09/2020 Acute deep vein thrombosis ( DVT) of brachial vein of right upper extremity 03/07/2020 Lymphadenopathy, generalized 03/07/2020 Migraine without status migrainosus, not intract able 12/06/2017 Paresthesia and pain of left extremity 8 Gastroesophageal reflux disease 06/03/2017 Rheumatoid arthritis involving multiple sites Overview (09/11/2024): - Following with [facility] Rheumatoloy Assessment & Plan (11/06/2024 1:48 PM [...] PM EDT): Primarily managed by Rheum at [facility] Continue to take Oulimiant 2mg, Methotrexate [...] not as effective -I spoke today with [facility] staff today ( Shahla) and confirmed they do have remdesivir which will be the best options for tx for this pt , ER at [facility] are expecting pt for evaluation. Also [...] Encounters Date Type Department Care Team Description 11/16/2024 Outside Procedure [facility] [address] [place] [address] Kailash, Libra, OD Presbyopia of both eyes (Primary Dx) 11/14/2024 9:15 AM EDT Office Visit [facility] [address] [place] [address] Kailash, Libra, OD Regular astigmatism of right eye (Primary Dx) 11/14/2024 Travel 11/13/2024 Refill [facility] [address] [place] [phone] Mackenzie Estrada MD 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 ([facility]) 11/13/2024 Patient Outreach [facility] [address] [place] [phone] Mackenzie Estrada MD 11/12/2024 Patient Outreach [facility] [address] [place] [phone] Mackenzie Estrada MD 11/09/2024 Orders Only GENERIC EXTERNAL DATA DEPARTMENT Provider, Generic External Data 11/06/2024 9:45 AM EDT Office Visit [facility] [address] [place] [phone] Sisi Kennedy FNP Rheumatoid arthritis involving multiple sites with positive rheumatoid factor ([facility]) (Primary Dx); Long-term current use of opiate analgesic; Chronic low back pain, unspecified back pain laterality, unspecified whether sciatica present; Cellulitis of upper extremity, unspecified laterality; Acute otitis externa of both ears, unspecified type 11/06/2024 Orders Only [facility] External Provider, [facility] 11/06/2024 Travel 11/02/2024 Refill [facility] [address] [place] [phone] Mackenzie Estrada MD 11/01/2024 Telephone [facility] [address] [place] [phone] Mackenzie Estrada MD Nicotine Dependence (Supports offered- [facility] smoking awareness group, meds) 10/24/2024 Telephone [facility] [address] [place] [address] Mackenzie Estrada MD Nurse Triage 10/15/2024 Refill [facility] [address] [place] [address] Mackenzie Estrada MD 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 (CMS/HCC) 10/12/2024 Population Health Risk Score [facility] ([facility]) Department [address] [place] [address] [phone] Provider, Population Health Generic 10/11/2024 1:00 PM EDT Office Visit [facility] [address] [place] [address] Libra Linder, OD Chorioretinal scar, left (Primary Dx); White without pressure of peripheral retina of both eyes; Generalized headaches; MGD (meibomian gland dysfunction); Early cataracts, bilateral; Presbyopia of both eyes 10/11/2024 Travel 10/10/2024 Refill [facility] [address] [place] [address] Kat Yo MD 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 ([facility]/HCC); Inflammatory arthritis 10/10/2024 Refill [facility] [address] [place] [address] Mackenzie Estrada MD 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 ([facility]/HCC) 10/09/2024 11:20 AM EDT Office Visit [facility] [address] [place] [address] Kat Yo MD Rheumatoid arthritis flare ([facility]/HCC) (Primary Dx); 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 ([facility]/HCC); Inflammatory arthritis 10/02/2024 Telephone [facility] [address] [place] [address] Mackenzie Estrada MD 10/01/2024 Telephone [facility] [address] [place] [address] Libra Linder OD 09/24/2024 3:15 PM EST Office Visit [address] [address] Mackenzie Estrada MD Rheumatoid arthritis involving multiple sites with positive rheumatoid factor ([facility]/HCC) (Primary Dx); Dietary counseling; Exercise counseling; Class 1 obesity with serious comorbidity and body mass index (BMI) of 33.0 to 33.9 in adult, unspecified obesity type; Nodular sclerosis Hodgkin lymphoma of lymph nodes of multiple regions ([facility]); NSTEMI (non-ST elevated myocardial infarction) ([facility]/HCC); 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 ([facility]); Class 1 obesity; Chronic low back pain, unspecified back pain laterality, unspecified whether sciatica present; Long-term current use of opiate analgesic; Screening mammogram for breast cancer 09/24/2024 Travel 09/24/2024 Refill [facility] [address] [place] [address] Mackenzie Estrada MD Gastroesophageal reflux disease with hiatal hernia 09/19/2024 Refill [facility] [address] [place] [address] Kaylene Samano RN 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 ([facility]) 09/18/2024 Refill [facility] [address] [place] [address] Mackenzie Estrada MD 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 ([facility]/HCC) 09/17/2024 Refill [facility] [address] [place] [address] Mackenzie Estrada MD 09/14/2024 Orders Only [facility] External Provider, [facility] 09/11/2024 9:45 AM EST Office Visit [facility] [address] [place] [phone] Sisi Kennedy FNP Rheumatoid arthritis involving multiple sites with positive rheumatoid factor ([facility]) (Primary Dx); Long-term current use of opiate analgesic 09/11/2024 Travel 09/10/2024 Patient Outreach [facility] [address] [place] [phone] Mackenzie Estrada MD Care Coordination (CHW outreach for SDOH PT-1 and food needs-referral completed /) 09/10/2024 Patient Outreach [facility] [address] [place] [address] Mackenzie Estrada MD Pre-visit Planning (SDOH screening negative and tobacco screening negative) 09/07/2024 Refill [facility] [address] [place] [address] Mackenzie Estrada MD 08/22/2024 Refill [facility] [address] [place] [address] Mackenzie Estrada MD 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 ([facility]) from Last 3 Months Immunizations Name Administration [...] Description 12/11/2024 9:45 AM EDT Office Visit [facility] [address] [place] [address] 12/28/2024 9:45 AM EDT Office Visit [facility] [address] [place] [phone] Mackenzie Estrada MD [address] [place] [address] Health Maintenance Due Date Last Done Comments [...] AUTO DIFFERENTIAL Routine 11/09/2024 10:36 AM EDT VAS US LOWER EXTREMITY ARTERIAL DUPLEX BILATERAL WITH SUGAR Routine 11/06/2024 1:05 PM EDT POCT GALLO-14 URINE DRUG SCREEN Routine 11/06/2024 10:46 AM EDT Rheumatoid arthritis involving multiple sites with positive rheumatoid factor ([facility]/H[facility]) Long-term current use of opiate analgesic XR [...] EDT Narrative 11/09/2024 10:59 AM EDT ? [facility] ?[address] ?[place] [address] ?XRay Report ? Signed ? Patient: Ginette Arceo ?MR ?? #: [id number] ? : 1975 ?Acct:[id number] ? Age/Sex: 49 / F ?ADM Date: 11/09/24 ? Loc: HO.ED ? Attending Dr: ? Ordering Physician: Generic ED Physician ?? Date of Service: 11/09/24 ?? Procedure(s): XR shoulder LT min 2V ?? Accession Number(s): [id number] ? cc: Generic ED Physician; Mackenzie Estrada [...] DD/ 1045 ? TD/TT: 11/09/24 1050 ? Territory Manager General Sales: ? Procedure Note Donrere, Deepa - 11/09/[address] [address] XRay Report Signed Patient: Ginette ArceoMR #: [id number] : 1975Acct:[id number] Age/Sex: 49 / FADM Date: 11/09/24 Loc: .ED Attending Dr: Ordering Physician: Generic ED Physician Date of Service: 11/09/24 Procedure(s): XR shoulder LT min 2V Accession Number(s): [id number] cc: Generic ED Physician; Mackenzie Estrada EXAMINATION: [...] 11/09/24 1057 DD/ 1045 TD/TT: 11/09/24 1050 Territory Manager General Sales: [facility] External Provider IMG XR PROCEDURES Final Result * XR Chest 2 Views (11/09/2024 10:45 AM EDT) Anatomical Region Laterality Modality Chest Radiographic Rin ging 11/09/2024 10:4 5 AM EDT Narrative 11/09/2024 11:00 AM EDT ? [facility] ?[address] ?[place] [address] ?XRay Report ? Signed ? Patient: Ovidiomyra Hamma,Ginette ?MR ?? #: [id number] ? : 1975 ?Acct:[id number] ? Age/Sex: 49 / F ?ADM Date: 11/09/24 ? Loc: HO.ED ? Attending Dr: ? Ordering Physician: Generic ED Physician ?? Date of Service: 11/09/24 ?? Procedure(s): XR chest 2V ?? Accession Number(s): [id number] ? cc: Generic ED Physician; Mackenzie Estrada [...] DD/ 1045 ? TD/TT: 11/09/24 1050 ? Territory Manager General Sales: ? Procedure Note Deepa Padgett - 11/09/[address] [address] XRay Report Signed Patient: Ginette ArceoMR #: [id number] : 1975Acct:[id number] Age/Sex: 49 / FADM Date: 11/09/24 Loc: HO.ED Attending Dr: Ordering Physician: Generic ED Physician Date of Service: 11/09/24 Procedure(s): XR chest 2V Accession Number(s): [id number] cc: Generic ED Physician; Mackenzie Estrada EXAMINATION: [...] Arian Mondragon MD 11/09/2024 10:58 AM EDT RP Dictated By: Arian Mondragon MD Signed By: <Electronically signed by Arian Mondragon MD in OV> 11/09/24 1058 DD/ 1045 TD/TT: 11/09/24 1050 Territory Manager General Sales: [facility] External Provider IMG XR PROCEDURES Final Result * High Sensitivity Troponin I (11/09/2024 10:36 AM EDT) [facility] TROPONIN I HIGH SENSITIVITY <2.7 <3.5 - 17.0 ng/L [facility] Comment:The Shea high sens itivity Troponin-I results should beused in conjunction with other diagnostic information suchas ECG, clinical observations and information, and patientsymptoms to aid in the diagnosis of NM. 11/09/2024 10:3 6 AM EDT 11/09/2024 10:45 AM EDT Generic External Data Provider LAB BLOOD ORDERAB LES Final Result [facility] [address] [place] [phone] * (ABNORMAL) CBC auto differential (11/09/2024 10:36 AM EDT) [facility] White Blood Count 7.3 4.8 - 10.8 X10*3/uL [facility] Red Blood Count 3.80(L) 4.20 - 5.50 X10*6/uL [facility] Hemoglobin 10.6(L) 12.0 - 16.0 g/dl [facility] Hematocrit 32.0(L) 37.0 - 47.0 % [facility] Mean Corpuscular Volume 84.2 80.0 - 98.0 fL [facility] Mean Corpuscular Hemoglobin 27.9 27.0 - 33.0 pg [facility] Mean Corpuscular HGB Conc 33.1 31.0 - 35.0 g/dl [facility] Red Cell Distribution Width 15.7 11.0 - 16.0 % [facility] Platelet Count 354 160 - 400 X10*3/uL [facility] Mean Platelet Volume 10.1 9.4 - 12.3 fL [facility] Neutrophils Percent Auto 57.2 45 - 73 % [facility] Imm Gran Pct Auto 0.3 0.0 - 0.4 % [facility] Lymphocytes Percent Auto 36.5 20 - 40 % [facility] Monocytes Percent Auto 5.2 2 - 11 % [facility] Eosinophils Percent Auto 0.5 0 - 4 % [facility] Basophils Percent Auto 0.3 0 - 2 % [facility] NRBC Pct Auto 0.0 0.0 - 0.2 /100WBC [facility] Neutrophils Absolute Auto 4.2 2.0 - 8.3 x10*3/uL [facility] Imm Gran Abs Auto 0.02 0.00 - 0.03 X10*3/uL [facility] Lymphocytes Absolute Auto 2.7 1.2 - 4.9 X10*3/uL [facility] Monocytes Absolute Auto 0.4 0.1 - 1.2 X10*3/uL [facility] Eosinophils Absolute Auto 0.0 0.0 - 0.4 X10*3/uL [facility] Basophils Absolute Auto 0.0 0.0 - 0.2 X10*3/uL [facility] NRBC Abs Auto 0.000 0.0 - 0.012 X10*3/uL [facility] 11/09/2024 10:3 6 AM EDT 11/09/2024 10:45 AM EDT us Generic External Data Provider LAB BLOOD ORDERAB LES Final Result Performing Organization Address [facility] Co de Phone Number [facility] [address] [place] [phone] * Prothrombin Time-INR (11/09/2024 10:36 AM EDT) Prothrombin Time 11.5 10.9 - 12.4 SEC [facility] INTERNATIONAL NORM RATIO 1.0 0.9 - 1.1 [facility] Comment:INTERNATIONAL NORMAL IZED RATIO (INR) [...] ORDERAB LES Final Result Performing Organization Address City/[facility] Co de Phone Number [facility] [address] [place] [phone] * (ABNORMAL) B Type Natriuretic Peptide (BNP) (11/09/2024 10:36 AM EDT) B Type Natriuretic Peptide 108(H) <100 pg/mL [facility] 11/09/2024 10:3 6 AM EDT 11/09/2024 10:45 AM EDT us Generic External Data Provider LAB BLOOD ORDERAB LES Final Result Performing Organization Address City/[facility]/ZIP Co de Phone Number [facility] [address] [place] [address] [phone] * Magnesium (11/09/2024 10:36 AM EDT) Pathologist [facility] Magnesium 2.0 1.6 - 2.6 mg/dL [facility] 11/09/2024 10:3 6 AM EDT 11/09/2024 10:45 AM EDT us Generic External Data Provider LAB BLOOD ORDERAB LES Final Result Performing Organization Address [facility] Co de Phone Number [facility] [address] [place] [phone] [phone] * (ABNORMAL) Comprehensive Metabolic Panel (11/09/2024 10:36 AM EDT) Pathologist [facility] Sodium 140 135 - 145 mmol/L [facility] Potassium 3.8 3.3 - 5.1 mmol/L [facility] Chloride 109(H) 96 - 108 mmol/L [facility] Carbon Dioxide 24 22 - 29 mmol/L [facility] Anion Gap 11(L) 12 - 20 [facility] Urea Nitrogen (BUN) 13 9 - 16 mg/dL [facility] Creatinine, Serum 0.59 0.5 - 1.4 mg/dL [facility] Creatinine Clr Calc Pharmacy 120.5 [facility] Comment:Provided height and weight: 165.1 cm,78.3 kg.eGFR (calculated from the MDRD study equation) and eCrCl(calculated from the Cockcroft-Gault equation) are based ondifferent parameters and may not yield comparable results.If eCrCl result is absurd, please check patient'sheight/weight. Estimated Glomerular Filt Rate >60 [facility] Comment:Chronic Kidney Disea se: Estimated GFR < 60 mL/min/1.22q2Sthecz Kidney Disease: Estimated GFR < 15 mL/min/1.73m2 Glucose 93 60 - 115 mg/dL [facility] Calcium 10.0 8.4 - 10.2 mg/dL [facility] Bilirubin, Total 0.2 0.0 - 1.0 mg/dL [facility] Aspartate Amino Transferase 27 5 - 31 U/L [facility] Alanine Aminotransferase 31 0 - 31 U/L [facility] Total Protein 8.9(H) 6.5 - 8.0 g/dL [facility] Albumin Level 3.6 3.5 - 5.0 g/dL [facility] Alkaline Phosphatase 112 39 - 117 U/L [facility] 11/09/2024 10:3 6 AM EDT 11/09/2024 10:45 AM EDT us Generic External Data Provider LAB BLOOD ORDERAB LES Final Result [facility] [address] [place] [address] [phone] * VASC US Lower Extremity Arterial Duplex Bilateral With Sugar (11/06/2024 1:05 PM EDT) 11/06/2024 1:05 PM EDT Narrative [facility] - 11/06/2024 2:10 PM EDT ? [facility] ?[address] ?[place] [address] ? Ultrasound Report ? Signed ? Patient: Ovidio Hamma,Ginette ?MR ?? #: [id number] ? : 1975 ?Acct:[id number] ? Age/Sex: 49 / F ?ADM Date: 11/06/ ? Loc: HO.US ? Attending Dr: Frankie Hughes MD ? Ordering Physician: Frankie Hughes MD ?? Date of Service: 04/08/25 ?? Procedure(s): US arterial duplex BI w/ SUGAR ?? Accession Number(s): [id number] ? cc: Mackenzie Estrada; Frankie Hughes MD [...] DD/ 1305 ? TD/TT: 11/06/24 1352 ? Territory Manager General Sales: ? Procedure Note Lorin, Image - 11/06/2024 [place] [address] Ultrasound Report Signed Patient: Ginette ArceoMR #: [id number] : 1975Acct:[id number] Age/Sex: 49 / FADM Date: 11/06/24 Loc: HO.US Attending Dr: Frankie Hughes MD Ordering Physician: Frankie Hughes MD Date of Service: 11/06/24 Procedure(s): US arterial duplex BI w/ SUGAR Accession Number(s): [id number] cc: Mackenzie Estrada; Frankie Hughes MD EXAMINATION: [...] 11/06/24 1407 DD/ 1305 TD/TT: 11/06/24 1352 Territory Manager General Sales: [facility] External Provider CV VASC ULAR PROCEDURES Final Result [facility] [address] [place] [address] [phone] * POCT GALLO-14 Urine Drug Screen (11/06/2024 10:46 AM EDT) Only the most recent of2 resultswithin the time period is included. THC Positive Oxycodone Screen, Urine Positive Urine Urine specimen obtained by clean catch procedure / Unknown 11/06/2024 10:46 AM EDT Narrative Coral Somers RN - 11/06/2024 10:46 AM EDT .UTOX cup Lot#[id number] Exp. 03/20/26 Internal Pass Control Sisi Kennedy FURNITURE DECALS INSPECTOR POINT OF CARE TEST ENTER/EDIT ORDERABLES Final Result * XR Elbow 3+ Views Left (09/15/2024 8:07 AM EST) Anatomical Region Laterality Modality Upper Extremities, Elbow Left Radiogr aphic Imaging 09/15/2024 8:07 AM EST Narrative 09/15/2024 8:09 AM EST ? [facility] ? [address] ?[place] [address] ?XRay Report ? Signed ? Patient: Ovidio Lacy,Ginette ?MR ?? #: [id number] ? : 1975 ?Acct:[id number] ? Age/Sex: 49 / F ?ADM Date: 09/14/24 ? Loc: HO.HOSX ? Attending Dr: Madonna Melara MD ? Ordering Physician: Madonna Bonilla ?? Date of Service: 09/14/24 ?? Procedure(s): XR elbow LT min 3V ?? Accession Number(s): [id number] ? cc: Mackenzie Estrada; Madonna Bonilla ? [...] ? DD/ 6 ? TD/TT: 09/15/24806 ? Territory Manager General Sales: ? Procedure Note Deepa Padgett - 09/15/2024 [facility] [address] [place] [address] [address] [place] [address] XRay Report Signed Patient: Ginette ArceoMR #: [id number] : 1975Acct:[id number] Age/Sex: 49 / FADM Date: 09/14/24 Loc: HO.HOSX Attending Dr: Madonna Melara MD Ordering Physician: Madonna Bonilla Date of Service: 09/14/24 Procedure(s): XR elbow LT min 3V Accession Number(s): [id number] cc: Mackenzie Estrada; Madonna Bonilla CLINICAL HISTORY: [...] 09/15/24 0808 DD/ 0807 TD/TT: 09/15/24 0807 Territory Manager General Sales: [facility] External Provider IMG XR PROCEDURES Edited Result - Final * XR Scapula Left (09/15/2024 8:04 AM EST) Anatomical Region Laterality Modality Body, Scapula Left Radiographic Rin ging 09/15/2024 8:04 AM EST Narrative 09/15/2024 8:06 AM EST ? [facility] ? [address] ?[place] [address] ?XRay Report ? Signed ? Patient: Ovidio LacyGinette ?MR ?? #: [id number] ? : 1975 ?Acct:[id number] ? Age/Sex: 49 / F ?ADM Date: 09/14/24 ? Loc: HO.HOSX ? Attending Dr: Madonna Melara MD ? Ordering Physician: Madonna Bonilla ?? Date of Service: 09/14/24 ?? Procedure(s): XR scapula LT ?? Accession Number(s): [id number] ? cc: Mackenzie Estrada; Madonna Bonilla ? [...] DD/ 0804 ? TD/TT: 09/15/24 0804 ? Territory Manager General Sales: ? Procedure Note Lorin, Image - 09/15/2024 [facility] [address] [place] [address] XRay Report Signed Patient: Ginette ArceoMR #: [id number] : 1975Acct:[id number] Age/Sex: 49 / FADM Date: 09/14/24 Loc: PAVANX Attending Dr: Madonna Melara MD Ordering Physician: Madonna Bonilla Date of Service: 09/14/24 Procedure(s): XR scapula LT Accession Number(s): [id number] cc: Mackenzie Estrada; Madonna Bonilla CLINICAL HISTORY: [...] 09/15/24 0805 DD/ 0804 TD/TT: 09/15/24 0804 Territory Manager General Sales: [facility] External Provider IMG XR PROCEDURES Edited Result - Final * XR Humerus Left (09/15/2024 8:00 AM EST) Anatomical Region Laterality Modality Upper Extremities, Humerus Left Radio graphic Imaging 09/15/2024 8:00 AM EST Narrative 09/15/2024 8:02 AM EST ? [facility] ? [address] ?[place] [address] ?XRay Report ? Signed ? Patient: Ovidio Lacy,Ginette ?MR ?? #: [id number] ? : 1975 ?Acct:[id number] ? Age/Sex: 49 / F ?ADM Date: 02/14/25 ? Loc: HO.HOSX ? Attending Dr: Madonna Melara MD ? Ordering Physician: Madonna Bonilla ?? Date of Service: 09/14/24 ?? Procedure(s): XR humerus LT ?? Accession Number(s): [id number] ? cc: Mackenzie Estrada; Madonna Bonilla ? [...] DD/ 0800 ? TD/TT: 09/15/24 0800 ? Territory Manager General Sales: ? Procedure Note Donotwilmarinterpreter, Image - 09/15/2024 [facility] [address] [place] [address] [address] [place] [address] XRay Report Signed Patient: Ginette ArceoMR #: [id number] : 1975Acct:[id number] Age/Sex: 49 / FADM Date: 09/14/24 Loc: TAMARA Attending Dr: Madonna Melara MD Ordering Physician: Madonna Bonilla Date of Service: 09/14/24 Procedure(s): XR humerus LT Accession Number(s): [id number] cc: Mackenzie Estrada; Madonna Bonilla CLINICAL HISTORY: [...] 09/15/24 0801 DD/ 08 TD/TT: 09/15/24 08 Territory Manager General Sales: [facility] External Provider IMG XR PROCEDURES Edited Result - Final * Hepatitis C Ab (04/11/2024 10:26 AM EDT) Hepatitis C Antibody Nonreactive Nonreactive [facility] Comment:Antibodies to HCV no t detected; does not exclude early acuteHCV infection. Blood Venous blood specimen / Unknown 04/11/2024 10:26 AM EDT 04/11/2024 11:19 AM EDT Mackenzie Estrada MD LAB BLOOD ORDERABLES Final Res ult Performing Organization Address [facility] Co de Phone Number [facility] [address] [place] [address] [phone] * HIV-1/2 Antigen and Antibodies, Fourth Generation, with Reflexes (04/11/2024 10:26 AM EDT) HIV AB/AG Nonreactive Nonreactive [facility] Comment:HIV-1 p24 Ag and/or HIV-1/HIV-2 Ab not detected.A test result that is nonreactive does not exclude thepossibility of exposure to or infection with HIV-1 and/orHIV-2. Nonreactive results in this assay for individualswith prior exposure to HIV-1 and/or HIV-2 may be due toantigen and antibody levels that are below the limit ofdetection of this assay.The [facility] HIV Ag/Ab Combo assay result andsupplemental assay results should be interpreted inconjunction with the patient's clinical presentation,history and other laboratory results. If the results areinconsistent with clinical evidence, additional testing issuggested to confirm the result. Blood Venous blood specimen / Unknown 04/11/2024 10:26 AM EDT 04/11/2024 11:19 AM EDT Mackenzie Estrada MD LAB BLOOD ORDERABLES Final Res ult Performing Organization Address [facility]/ZIP Co de Phone Number [facility] [address] [place] [address] [phone] * HPV mRNA E6/E7 w/Reflex to HPV Genotypes 16, 18/45 (09/29/2023 12:26 PM EST) HPV nRNA E6/E7 Not Detected Not Detected [facility] Comment:Methodology: Transcr iption-Mediated AmplificationThis assay detects E6/E7 viral messenger RNA (mRNA) from 14high-risk HPV types (16,18,31,33,35,39,45,51,52,56,58,59,66,68).Cervical sources are required for HPV testing.If a vaginal source from a patient who has had atotal hysterectomy with removal of cervix wassubmitted, please contact the testing laboratoryfor alternative testing options.For additional information, please refer tohttp://education.Jigsee/faq/TID190p1(This link if provided for information/educational purposes only.)THIS TEST WAS PERFORMED AT:[facility] [place] [phone] GALVAN MD HPV mRNA E6/E7 [facility] HPV 16 RNA [facility] HPV 18/45 RNA [facility] 09/29/2023 12:2 6 PM EST 09/30/2023 11:30 AM EST us Mackenzie Estrada MD LAB CYTOLOGY ORDERABLES Final Result [facility] [address] [place], [place] [phone] * Pap Smear (09/29/2023 12:26 PM EST) 09/29/2023 12:2 6 PM EST 09/30/2023 11:30 AM EST Narrative [facility] - 10/12/2023 4:18 PM EDT ----- ------- Name: Ginette Arceo ?Age/Sex: 48/F ? : 1975 Unit#: [id number] ?? Attend Dr: Mackenzie Estrada ?Re09/29/23 ?Status: DEP REF ? Location: HO.CX ? Disch: ? ----- ------- SPEC : [id number] ? RECD: 09/30/23 ? STATUS: ??SOUT ? REQ NUM: [id number] ? BHAVIN: 09/29/23-1226 ? SUBM DR: Mackenzie Estrada ? ENTERED: ??09/30/233 ?SP TYPE: Pap Smr ?OTHR DR: ? ORDERED: ??Pap Smear ? Interpretation ?? Satisfactory for evaluation. ?? Negative for intraepithelial lesion or malignancy. ?HPV mRNA E6/E7: ?NOT DETECTED ? This assay detects E6/E7 viral messenger RNA (mRNA) from 14 high-risk HPV types (16, 18, ?? 31, 33, 35, 39, 45, 51, 52, 56, 58, 59, 66, 68) ?? HPV testing performed by [facility], [place], [place]. ??See reference laboratory ?? portion of the EMR for entire report. ?Clinical Information LMP: Heavy menstrual bleeding past two weeks Previous PAP test: Unknown date/findings Other history: ? Material Received ?? ThinPrep-Cervical ----- ------- Signed (signature on file) BARB Hawley (ASCP) 10/12/23 6798 ? ----- ------- ? END OF REPORT ? us Mackenzie Estrada MD LAB CYTOLOGY ORDERABLES Final Result [facility] [address] [place] [phone] * Mammography Report 1 (10/09/2021 [...] ?? LDL-C is now calculated using the Hi-Laguna ?? calculation, which is a validated novel method providing ?? better accuracy than the Friedewald equation in the ?? estimation of LDL-C. ?? Hi COELLO et al. ROXY. 2013;310(19): 7010-9696 ?? (http://education.[employer].Pacific Ethanol/faq/NVW418) Non-HDL Cholesterol 175(H) <130 mg/dL (calc) [facility]OUNDATION [...] [facility] [address] * Colonoscopy (10/28/2017) Colonoscopy Normal Normal Narrative Cecilia Henriquez - 10/28/2017 [place] 10 [place] [place] Provider HEALTH MAINTENANCE Edited Result - Final from Last 3 Months or Most Recently Relevant to Health Maintenance Insurance [facility] [address] [place] [address] [facility] MEDICAID STAND ADULT Care Teams Hop Weigher Relationship Specialty Start Date End Date Mackenzie Estrada MD [address] [place] [address] [place] [address] PCP - General Family Medicine 07/10/20
--- OUTSIDE RECORDS SUMMARY | 2024-11-20 09:03 | XMS_ITS | Encounter Summary ---
Author Organization [employer] Address [address] [facility] 7t [place] [address] Care Team Providers Care Vision Mixer Name Role Phone Mackenzie Estrada MD Primary Care Provider [phone] Reason for Visit * Reason Comments Med Refill Encounter Details Date Type Department Care Team ([facility] st Contact Info) Description 11/18/2023 Refill [facility] 230 [place], [place] [phone] Mackenzie Estrada MD 230 [place], [place] [phone] Pain in both hands Social History Tobacco [...] 12/11/2024 9:45 AM EDT Office Visit [address] [address] 12/28/2024 9:45 AM EDT Office Visit [address] [address] Mackenzie Estrada MD [address] [place] [address] documented as of this encounter Goals Goal Patient Goal Type Associated Problems Recent Progress Patient-Stated? Author Quit using tobacco (cigarettes, smokeless, etc) Tobacco Use No Corey Lin, PharmD documented as of this encounter Visit Diagnoses Diagnosis Pain in both hands documented in this encounter Care Teams Vision Mixer Relationship Specialty Start Date End Date Mackenzie Estrada MD [address] [place] [address] PCP - General Family Medicine 07/10/20 documented as of this encounter
--- OUTSIDE RECORDS SUMMARY | 2024-11-20 09:03 | XMS_ITS | Encounter Summary ---
Author Organization [facility] Address [address] [facility] 7t [place] [address] Care Team Providers Care Finished Stock Inspector Name Role Phone Mackenzie Estrada MD Primary Care Provider [phone] Reason for Referral * Imaging (Routine) - Closed Specialty Diagnoses / Procedures Referred By Contac t Referred To Contact Radiology Diagnoses Abnormal ultrasound of pelvis Procedures MR Pelvis w/ and w/o Contrast Mackenzie Estrada MD 230 [place] [address] Phone: tel: fax: [address] Phone: tel: fax: Referral ID Status Reason Start Date Expiration Date Visits Re quested Visits Authorized [id number] Closed 10/31/2023 10/30/2024 1 1 Encounter Details Date Type Department Care Team (Late st Contact Info) Description 10/31/2023 Orders Only [facility] 230 [place], [place] [phone] Mackenzie Estrada MD 230 [place], [place] [phone] Abnormal ultrasound of pelvis (Primary Dx) Social [...] which I need to talk to her automatic fabric cutter about. Thank you! documented in this encounter Plan of Treatment Upcoming Encounters Date Type Department Care Team (Late st Contact Info) Description 12/11/2024 9:45 AM EDT Office Visit [facility] [address] [place] [address] 12/28/2024 9:45 AM EDT Office Visit [facility] [address] [place] [address] Mackenzie Estrada MD [address] [place] [address] documented as of this encounter Goals Goal [...] EDT Narrative 12/07/2023 9:11 AM EDT ? [facility] ?[address] ?[place] [address] ? Magnetic Resonance Report ? Signed ? Patient: Ginette Arceo ?MR ?? #: [id number] ? : 1975 ?Acct:[id number] ? Age/Sex: 48 / F ?ADM Date: 11/25/23 ? Loc: HO.MRI ? Attending Dr: Mackenzie Estrada MD ? Ordering Physician: Mackenzie Estrada ?? Date of Service: 11/25/23 ?? Procedure(s): MR pelvis wo/w con ?? Accession Number(s): [id number] ? cc: Mackenzie Estrada ? EXAMINATION: ?? [...] 7.8 x 3.6 ?? x 4.3 cm (eppfpc-pe-uzklwk x AP x transverse dimension). The junctional [...] 12/07/23906 ? DD/ 1505 ? TD/TT: ? Dust Brush Assembler: PD ? Procedure Note Donotuseinterpreter, Image - 12/07/[address] [address] Magnetic Resonance Report Signed Patient: Ginette ArceoMR #: [id number] : 1975Acct:[id number] Age/Sex: 48 / FADM Date: 11/25/23 Loc: HO.MRI Attending Dr: Mackenzie Estrada MD Ordering Physician: Mackenzie Estrada Date of Service: 11/25/23 Procedure(s): MR pelvis wo/w con Accession Number(s): [id number] cc: Mackenzie Estrada EXAMINATION: MR PELVIS WITHOUT [...] measures 7.8 x 3.6 x 4.3 cm (udpkwc-jd-easwol x AP x transverse dimension). The junctional [...] in OV> 12/07/23 0907 DD/ 1505 TD/TT: Dust Brush Assembler: PD Mackenzie Estrada MD IMG MRI PROCEDURES Final Resul t documented in this encounter Visit Diagnoses Diagnosis Abnormal ultrasound of pelvis- Primary documented in this encounter Care Teams Finished Stock Inspector Relationship Specialty Start Date End Date Mackenzie Estrada MD [address] [place] [address] PCP - General Family Medicine 07/10/20 documented as of this encounter
--- OUTSIDE RECORDS SUMMARY | 2024-11-20 09:03 | XMS_ITS | Clinical Summary ---
Author Organization [facility] Address [address] [place] [address] Care Team Providers Care Nozzleman Name Role Phone Sanjay Cruz MD [facility] Surgical History Surgery Date Site/Laterality Comments [...] (deep vein thrombosis); COMMENT: 01/2005 Right Subclavain salvage determiner current use of anticoagulant 0 DX:[facility] current use of anticoagulant Acute deep vein thrombosis ( DVT) of brachial vein of right upper extremity ([facility] V24, [facility] V28) 05/09/2020 DX:Acute deep vein thrombos is (DVT) of brachial vein of right upper extremity (HCC) Axillary lymphadenopathy 05/09/2020 DX:Axil harvinder lymphadenopathy Gastroesophageal reflux disease 05/09/2020 DX:Gastroesophageal reflux disease Personal history of Hodgkin lymphoma 05/09/2020 DX:Personal history of Hodgkin lymphoma Recurrent major depressive d isorder in remission ([facility] V24) 05/09/2020 DX:Recurrent major depressiv e disorder in remission (HCC) Rheumatoid arthritis involvi ng multiple sites ([facility] V24, [facility] V28) 05/09/2020 DX:Rheumatoid arthritis invo lving multiple sites (HCC) Hodgkin's disease, nodular s clerosis, of lymph nodes of multiple sites ([facility] V24, [facility] V28) DX:Hodgkin's disease, nodul ar sclerosis, of [...] age to complete this topic Care Teams Nozzleman Relationship Specialty Start Date End Date Sanjay Cruz MD [address] [place] [phone] PCP - General Internal Medicine 04/09/20
--- OUTSIDE RECORDS SUMMARY | 2024-11-20 09:03 | XMS_ITS | Encounter Summary ---
Author Organization [employer] Address [address] [facility] [address] 7t [place] [address] Care Team Providers Care Decorator Store Name Role Phone Mackenzie Estrada MD Primary Care Provider [phone] Encounter Details Date Type Department Care Team (Late st Contact Info) Description 04/20/[address] [facility] 230 [place], [place] [phone] Mackenzie Estrada MD 230 [place], [place] [phone] Social History Tobacco Use Types Packs/Day Years [...] 12/11/2024 9:45 AM EDT Office Visit [address] [address] 12/28/2024 9:45 AM EDT Office Visit [address] [address] Mackenzie Estrada MD [address] [place] [address] documented as of this encounter Goals Goal Patient Goal Type Associated Problems Recent Progress Patient-Stated? Author Quit using tobacco (cigarettes, smokeless, etc) Tobacco Use No Corey Lin, PharmD documented as of this encounter Visit Diagnoses Not on filedocumented in this encounter Care Teams Decorator Store Relationship Specialty Start Date End Date Mackenzie Estrada MD [address] [place] [address] PCP - General Family Medicine 07/10/20 documented as of this encounter
--- OUTSIDE RECORDS SUMMARY | 2024-11-20 09:03 | XMS_ITS | Encounter Summary ---
Author Organization [employer] Address [address] [facility] [address] 7t [place] [address] Care Team Providers Care Bottling Line Operator Name Role Phone Mackenzie Estrada MD Primary Care Provider [phone] Reason for Visit * Reason Comments Med Refill Encounter Details Date Type Department Care Team ([facility] Contact Info) Description 10/10/2024 Refill [facility] 230 [place], [place] [phone] Kat Yo MD 230 [place] [address] Rheumatoid arthritis involving right hand with positive [...] the past 12 months, has t he [employer], gas, oil or water [employer] threatened to shut off services in your [...] 9:45 AM EDT Office Visit [facility] [address] [place] [address] 12/28/2024 9:45 AM EDT Office Visit [facility] [address] [place] [address] Mackenzie Estrada MD [address] [place] [address] documented as of this encounter Goals Goal [...] documented as of this encounter Care Teams Bottling Line Operator Relationship Specialty Start Date End Date Mackenzie Estrada MD [address] [place] [address] PCP - General Family Medicine 07/10/20 documented as of this encounter
--- OUTSIDE RECORDS SUMMARY | 2024-11-20 09:03 | XMS_ITS | Encounter Summary ---
Author Organization [employer] Address [address] [facility] 7t [place] [address] Care Team Providers Care Polysomnographer Name Role Phone Mackenzie Estrada MD Primary Care Provider [phone] Reason for Visit * Reason Comments Med Refill Encounter Details Date Type Department Care Team ([facility] st Contact Info) Description 06/02/2023 Refill [facility] 230 [place], [place] [phone] Mackenzie Estrada MD 230 [place], [place] [phone] Pain in both hands Social History Tobacco [...] Description 12/11/2024 9:45 AM EDT Office Visit [address] [address] 12/28/2024 9:45 AM EDT Office Visit [address] [address] Mackenzie Estrada MD [address] [place] [address] documented as of this encounter Goals Goal Patient Goal Type Associated Problems Recent Progress Patient-Stated? Author Quit using tobacco (cigarettes, smokeless, etc) Tobacco Use No Corey Lin, PharmD documented as of this encounter Visit Diagnoses Diagnosis Pain in both hands documented in this encounter Care Teams Polysomnographer Relationship Specialty Start Date End Date Mackenzie Estrada MD [address] [place] [address] PCP - General Family Medicine 07/10/20 documented as of this encounter
--- OUTSIDE RECORDS SUMMARY | 2024-11-20 09:03 | XMS_ITS | Encounter Summary ---
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 [...] the past 12 months, has t he [employer], gas, oil or water company threatened to [...] Description 12/11/2024 9:45 AM EDT Office Visit [facility] [address] [place] [address] 12/28/2024 9:45 AM EDT Office Visit [facility] [address] [place] [address] Mackenzie Estrada MD [address] [place] [address] documented as of this encounter Goals Goal [...] documented as of this encounter Care Teams Negative Spotter Relationship Specialty Start Date End Date Mackenzie Estrada MD [address] [place] [address] PCP - General Family Medicine 07/10/20 documented as of this encounter
--- OUTSIDE RECORDS SUMMARY | 2024-11-20 09:03 | XMS_ITS | Encounter Summary ---
Author Organization [employer] Address [address] [facility] 7t [place] [address] Care Team Providers Care Cable Television Line Technician Name Role Phone Mackenzie Estrada MD Primary Care Provider [phone] Reason for Visit * Reason Onset Date Comments Hospital Follow-up 02/24/2024 Encounter Details Date Type Department Care Team ([facility] st Contact Info) Description 02/24/2024 Telephone [facility] 230 [place], [place] [phone] Mackenzie Estrada MD 230 [place] [address] Hospital Follow-up Social History Tobacco Use Types [...] from pt requesting a HDF appt. Hospital: [facility] Date of admission: 02/19 Discharge date: 02/23 Diagnosed: Rectal Bleeding Citizen Of [place] Speaker documented in this encounter Plan of Treatment Upcoming Encounters Date Type Department Care Team (Late st Contact Info) Description 12/11/2024 9:45 AM EDT Office Visit [facility] [address] [place] [address] 12/28/2024 9:45 AM EDT Office Visit [facility] [address] [place] [address] Mackenzie Estrada MD [address] [place] [address] documented as of this encounter Goals Goal Patient Goal Type Associated Problems Recent Progress Patient-Stated? Author Quit using tobacco (cigarettes, smokeless, etc) Tobacco Use No Corey Lin, Bailey documented as of this encounter Visit Diagnoses Not on filedocumented in this encounter Care Teams Cable Television Line Technician Relationship Specialty Start Date End Date Mackenzie Estrada MD [address] [place] [address], [place] [address] PCP - General Family Medicine 07/10/20 documented as of this encounter
--- OUTSIDE RECORDS SUMMARY | 2024-11-20 09:03 | XMS_ITS | Encounter Summary ---
Author Organization [employer] Address [address] [facility]t [place] [address] Care Team Providers Care Material Handling Crew Supervisor Name Role Phone Mackenzie Estrada MD Primary Care Provider [phone] Encounter Details Date Type Department Care Team (Late st Contact Info) Description 06/01/2023 Orders Only [facility] 230 [place], [place] [phone] Mackenzie Estrada MD 230 [place] [address] Encounter for smoking cessation counseling (Primary Dx) [...] 12/11/2024 9:45 AM EDT Office Visit [address] [address] 12/28/2024 9:45 AM EDT Office Visit [address] [address] Mackenzie Estrada MD [address] [place] [address] documented as of this encounter Goals Goal Patient Goal Type Associated Problems Recent Progress Patient-Stated? Author Quit using tobacco (cigarettes, smokeless, etc) Tobacco Use No Corey Lin, PharmD documented as of this encounter Visit Diagnoses Diagnosis Encounter for smoking cessation counseling- Primary documented in this encounter Care Teams Material Handling Crew Supervisor Relationship Specialty Start Date End Date Mackenzie Estrada MD [address] [place] [address] PCP - General Family Medicine 07/10/20 documented as of this encounter
--- OUTSIDE RECORDS SUMMARY | 2024-11-20 09:03 | XMS_ITS | Encounter Summary ---
Author Organization [employer] Address [address] [facility] 7t [place] [address] Care Team Providers Care Sas Programmer Name Role Phone Mackenzie Estrada MD Primary Care Provider [phone] Reason for Visit * Reason Comments Med Refill Encounter Details Date Type Department Care Team ([facility] st Contact Info) Description 02/08/2023 Refill [facility] 230 [place] [address] Mackenzie Estrada MD 230 [place] [address] Pain in both hands Social History Tobacco [...] Description 12/11/2024 9:45 AM EDT Office Visit [address] [address] 12/28/2024 9:45 AM EDT Office Visit [address] [phone] Mackenzie Estrada MD [address] [place] [address] documented as of this encounter Visit Diagnoses Diagnosis Pain in both hands documented in this encounter Care Teams Sas Programmer Relationship Specialty Start Date End Date Mackenzie Estrada MD [address] [place] [address] PCP - General Family Medicine 07/10/20 documented as of this encounter
--- OUTSIDE RECORDS SUMMARY | 2024-11-20 09:03 | XMS_ITS | Encounter Summary ---
Author Organization [employer] Address [address] [facility] [address] 7t [place] [address] Care Team Providers Care Setter Up Name Role Phone Mackenzie Estrada MD Primary Care Provider [phone] Encounter Details Date Type Department Care Team (Late st Contact Info) Description 04/10/2024 Orders Only [facility] MED[facility]INE 230 [place], [place] [phone] Mackenzie Estrada MD 230 [place] [address] Social History Tobacco Use Types Packs/Day Years [...] Description 12/11/2024 9:45 AM EDT Office Visit [address] [address] 12/28/2024 9:45 AM EDT Office Visit [address] [address] Mackenzie Estrada MD [address] [place] [address] documented as of this encounter Goals Goal Patient Goal Type Associated Problems Recent Progress Patient-Stated? Author Quit using tobacco (cigarettes, smokeless, etc) Tobacco Use No Corey Lin, PharmD documented as of this encounter Visit Diagnoses Not on filedocumented in this encounter Care Teams Setter Up Relationship Specialty Start Date End Date Mackenzie Estrada MD [address] [place] [address] PCP - General Family Medicine 07/10/20 documented as of this encounter
--- OUTSIDE RECORDS SUMMARY | 2024-11-20 09:03 | XMS_ITS | Encounter Summary ---
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 [...] the past 12 months, has t he [employer] gas, oil or water company threatened to [...] 12/11/2024 9:45 AM EDT Office Visit [facility] [address] [place] [address] 12/28/2024 9:45 AM EDT Office Visit [facility] [address] [place] [address] Mackenzie Estrada MD [address] [place] [address] documented as of this encounter Goals Goal [...] as of this encounter Care Teams Health Officer Relationship Specialty Start Date End Date Mackenzie Estrada MD 230 [place] [address] PCP - General Family Medicine 07/10/20 documented as of this encounter
--- OUTSIDE RECORDS SUMMARY | 2024-11-20 09:03 | XMS_ITS | Encounter Summary ---
Author Organization [employer] Address [address] [facility] [address] 7t [place] [address] Care Team Providers Care Customer Associate Name Role Phone Mackenzie Estrada MD Primary Care Provider [phone] Encounter Details Date Type Department Care Team (Late st Contact Info) Description 10/03/2023 Orders Only [facility] MEDICINE 230 [place], [place] [phone] Mackenzie Estrada MD 230 [place], [place] [phone] Bacterial vaginosis (Primary Dx) Social History Tobacco [...] Description 12/11/2024 9:45 AM EDT Office Visit [address] [address] 12/28/2024 9:45 AM EDT Office Visit [address] [address] Mackenzie Estrada MD [address] [place] [address] documented as of this encounter Goals Goal Patient Goal Type Associated Problems Recent Progress Patient-Stated? Author Quit using tobacco (cigarettes, smokeless, etc) Tobacco Use No Corey Lin, PharmD documented as of this encounter Visit Diagnoses Diagnosis Bacterial vaginosis- Primary Unspecified vaginitis and vulvovaginitis documented in this encounter Care Teams Customer Associate Relationship Specialty Start Date End Date Mackenzie Estrada MD [address] [place] [address] PCP - General Family Medicine 07/10/20 documented as of this encounter
--- OUTSIDE RECORDS SUMMARY | 2024-11-20 09:03 | XMS_ITS | Encounter Summary ---
Author Organization [employer] Address [address] [facility] [address] 7t [place] [address] Care Team Providers Care Professional Athletes Coach Name Role Phone Mackenzie Estrada MD Primary Care Provider [phone] Encounter Details Date Type Department Care Team (Latest Contact Info) Description 11/16/2024 Outside Procedure [facility] OPTOMETRY [address] [place] [address] Kailash, Libra, OD [address] [place] [address] Presbyopia of both eyes (Primary Dx) Social History Tobacco Use Types [...] as of this encounter Progress Notes * Libra Linder OD - 11/16/2024 9:12 AM EDT MH glasses were dispensed, 2 of 2. documented in this encounter Plan of Treatment Upcoming Encounters Date Type Department Care Team (Late st Contact Info) Description 12/11/2024 9:45 AM EDT Office Visit [facility] [address] [place] [address] 12/28/2024 9:45 AM EDT Office Visit [facility] [address] [place] [address] Mackenzie Estrada MD [address] [place] [address] documented as of this encounter Goals Goal Patient Goal Type Associated Problems Recent Progress Patient-Stated? Author Quit using tobacco (cigarettes, smokeless, etc) Tobacco Use No Corey Lin, Bailey documented as of this encounter Visit Diagnoses Diagnosis Presbyopia of both eyes- Primary documented in this encounter Additional Health Concerns Assessment Noted Time PHQ-9 Depression Total Score: 2 04/30/20 24 10:41 AM EDT documented as of this encounter Care Teams Professional Athletes Coach Relationship Specialty Start Date End Date Mackenzie Estrada MD 230 [place] [address] PCP - General Family Medicine 07/10/20 documented as of this encounter
--- OUTSIDE RECORDS SUMMARY | 2024-11-20 09:04 | XMS_ITS | Encounter Summary ---
Author Organization [employer] Address [address] [facility] [address] [place] [address] Care Team Providers Care Ski Tow Operator Name Role Phone Mackenzie Estrada MD Primary Care Provider [phone] Encounter Details Date Type Department Care Team (Late st Contact Info) Description 05/10/2024 Orders Only [facility] MEDICINE 230 [place], [place] [phone] Mackenzie Estrada MD 230 [place] [address] Social History Tobacco Use Types Packs/Day Years [...] 12/11/2024 9:45 AM EDT Office Visit [facility] MEDICINE [address] [place] [address] 12/28/2024 9:45 AM EDT Office Visit [address] [address] Mackenzie Estrada MD [address] [place] [address] documented as of this encounter Goals Goal Patient Goal Type Associated Problems Recent Progress Patient-Stated? Author Quit using tobacco (cigarettes, smokeless, etc) Tobacco Use Corey Cornell, KelechiD documented as of this encounter Visit Diagnoses Not on filedocumented in this encounter Additional Health Concerns Assessment Noted Time PHQ-9 Depression Total Score: 2 04/30/20 24 10:41 AM EDT documented as of this encounter Care Teams Ski Tow Operator Relationship Specialty Start Date End Date Mackenzie Estrada MD [address] [place] [address] PCP - General Family Medicine 07/10/20 documented as of this encounter
--- OUTSIDE RECORDS SUMMARY | 2024-11-20 09:04 | XMS_ITS | Encounter Summary ---
Author Organization [employer] Address 75 [facility] 7t [place] [address] Care Team Providers Care Mold Repair Technician Name Role Phone Mackenzie Estrada MD Primary Care Provider [phone] Reason for Visit * Reason Comments Med Refill Encounter Details Date Type Department Care Team ([facility] st Contact Info) Description 07/21/2023 Refill [facility] MEDICINE 230 [place], [place] [phone] Name, MD Mark 230 [place] [address] Pain in both hands Social History Tobacco [...] Description 12/11/2024 9:45 AM EDT Office Visit [address] [address] 12/28/2024 9:45 AM EDT Office Visit [address] [address] Mackenzie Estrada MD [address] [place] [address] documented as of this encounter Goals Goal Patient Goal Type Associated Problems Recent Progress Patient-Stated? Author Quit using tobacco (cigarettes, smokeless, etc) Tobacco Use No Corey Lin, PharmD documented as of this encounter Visit Diagnoses Diagnosis Pain in both hands documented in this encounter Care Teams Mold Repair Technician Relationship Specialty Start Date End Date Mackenzie Estrada MD [address] [place] [address] PCP - General Family Medicine 07/10/20 documented as of this encounter
--- OUTSIDE RECORDS SUMMARY | 2024-11-20 09:04 | XMS_ITS | Clinical Summary ---
Author Organization [facility] Address [address] [place] [address] Support Name Relationship Address Phone Brayden Hernandez Emergency Contact [address] [place] [address] Care Team Providers Care Assistant Tennis Coach Name Role Phone Abdullahi Lizarraga MD Primary Care Provider [phone] Allergies Active Allergy Reactions Criticality Noted Date [...] age to complete this topic Care Teams Assistant Tennis Coach Relationship Specialty Start Date End Date Abdullahi Lizarraga MD [address] [place] [address] PCP - General Nephrology 03/10/18
--- OUTSIDE RECORDS SUMMARY | 2024-11-20 09:04 | XMS_ITS | Encounter Summary ---
Author Organization [employer] Address [address] [facility] [address] 7t [place] [address] Care Team Providers Care Extractor Puller Name Role Phone Mackenzie Estrada MD Primary Care Provider [phone] Reason for Visit * Reason Comments Med Refill Encounter Details Date Type Department Care Team ([facility] st Contact Info) Description 08/26/2023 Refill [facility] MED[facility]INE 230 [place] [address] Sisi Kennedy FNP [address] [place], [place] [phone] Viral upper respiratory tract infection Social History [...] Description 12/11/2024 9:45 AM EDT Office Visit [address] [address] 12/28/2024 9:45 AM EDT Office Visit [address] [address] Mackenzie Estrada MD [address] [place] [address] documented as of this encounter Goals Goal Patient Goal Type Associated Problems Recent Progress Patient-Stated? Author Quit using tobacco (cigarettes, smokeless, etc) Tobacco Use No Corey Lin, PharmD documented as of this encounter Visit Diagnoses Diagnosis Viral upper respiratory tract infection Acute upper respiratory infections of unspecified site documented in this encounter Care Teams Extractor Puller Relationship Specialty Start Date End Date Mackenzie Estrada MD [address] [place] [address] PCP - General Family Medicine 07/10/20 documented as of this encounter
--- OUTSIDE RECORDS SUMMARY | 2024-11-20 09:04 | XMS_ITS | Encounter Summary ---
Author Organization [employer] [facility] Address [address] [facility] 7t [place] [address] Care Team Providers Care Refinery Operator Assistant Name Role Phone Mackenzie Estrada MD Primary Care Provider [phone] Reason for Visit * Reason Comments Med Refill Encounter Details Date Type Department Care Team ([facility] Contact Info) Description 08/25/2022 Refill [facility] MEDICINE [address] [place] [address] [phone] Mackenzie Estrada MD 230 [place], [place] [phone] Pain in both hands Social History Tobacco [...] Upcoming Encounters Date Type Department Care Team ([facility] Contact Info) Description 12/11/2024 9:45 AM EDT Office Visit [facility] [address] [place] [address] [phone] 12/28/2024 9:45 AM EDT Office Visit [facility] [address] [place] [address] [phone] Mackenzie Estrada MD [address] [place], [place] [phone] documented as of this encounter Visit Diagnoses Diagnosis Pain in both hands documented in this encounter Care Teams Refinery Operator Assistant Relationship Specialty Start Date End Date Mackenzie Estrada MD 230 [place], [place] [phone] PCP - General Family Medicine 07/10/20 documented as of this encounter
--- OUTSIDE RECORDS SUMMARY | 2024-11-20 09:04 | XMS_ITS | Encounter Summary ---
Author Organization [employer] Address 75 [facility] 7t [place] [address] Care Team Providers Care Electrical Discharge Machine Operator Name Role Phone Mackenzie Estrada MD Primary Care Provider [phone] Reason for Visit * Reason Onset Date Comments Error 08/16/2023 Encounter Details Date Type Department Care Team ([facility] Contact Info) Description 08/16/2023 Telephone [facility] MEDICINE 230 [place], [place] [phone] Mackenzie Estrada MD 230 [place], [place] [phone] Error Social History Tobacco Use Types Packs/Day [...] 12/11/2024 9:45 AM EDT Office Visit [address] [address] 12/28/2024 9:45 AM EDT Office Visit [address] [address] Mackenzie Estrada MD [address] [place] [address] documented as of this encounter Goals Goal Patient Goal Type Associated Problems Recent Progress Patient-Stated? Author Quit using tobacco (cigarettes, smokeless, etc) Tobacco Use No Corey Lin, PharmD documented as of this encounter Visit Diagnoses Not on filedocumented in this encounter Care Teams Electrical Discharge Machine Operator Relationship Specialty Start Date End Date Mackenzie Estrada MD [address] [place] [address] PCP - General Family Medicine 07/10/20 documented as of this encounter
--- OUTSIDE RECORDS SUMMARY | 2024-11-20 09:04 | XMS_ITS | Encounter Summary ---
Author Organization [employer] [facility] Address 75 [facility] 7t [place] [address] Care Team Providers Care Electrician Yard Name Role Phone Mackenzie Estrada MD Primary Care Provider [phone] Encounter Details Date Type Department Care Team ([facility] Contact Info) Description 03/29/2023 Abstract [facility] MEDICINE [address] [place] [address] Cecilia Henriquez Social History Tobacco Use Types [...] Upcoming Encounters Date Type Department Care Team ([facility] Contact Info) Description 12/11/2024 9:45 AM EDT Office Visit [facility] [address] [place] [address] [phone] 12/28/2024 9:45 AM EDT Office Visit [facility] [address] [place] [address] Mackenzie Estrada MD [address] [place] [address] documented as of this encounter Procedures Procedure Name Priority Date/Time Associated Diagnosis Comments HM COLONOSCOPY Routine 10/28/2017 documented in this encounter Results * Colonoscopy (10/28/2017) Colonoscopy Normal Normal Narrative Cecilia Henriquez - 10/28/2017 Recommended 10 year follow up ([facility] Historical Provider HEALTH MAINTENANCE Edited Result - Final documented in this encounter Visit Diagnoses Not on filedocumented in this encounter Care Teams Electrician Yard Relationship Specialty Start Date End Date Mackenzie Estrada MD 230 [place] [address] PCP - General Family Medicine 07/10/20 documented as of this encounter
--- OUTSIDE RECORDS SUMMARY | 2024-11-20 09:04 | XMS_ITS | Encounter Summary ---
Author Organization [employer] Address 75 [facility] 7t [place] [address] Care Team Providers Care Dairy And Food Laboratory Assistant Name Role Phone Mackenzie Estrada MD Primary Care Provider [phone] Reason for Visit * Reason Comments Med Refill Encounter Details Date Type Department Care Team ([facility] Contact Info) Description 09/22/2022 Refill [facility] 230 [place], [place] [phone] Sarika Palacios ANP 230 [place] [address] Tinea pedis of both feet Social History [...] Upcoming Encounters Date Type Department Care Team ([facility] Contact Info) Description 12/11/2024 9:45 AM EDT Office Visit [facility] MED[facility]INE [address] [place] [address] 12/28/2024 9:45 AM EDT Office Visit [facility] MED[facility] [address] [place] [address] Mackenzie Estrada MD [address] [place] [address] documented as of this encounter Visit Diagnoses Diagnosis Tinea pedis of both feet documented in this encounter Care Teams Dairy And Food Laboratory Assistant Relationship Specialty Start Date End Date Mackenzie Estrada MD 230 [place] [address] PCP - General Family Medicine 07/10/20 documented as of this encounter
--- OUTSIDE RECORDS SUMMARY | 2024-11-20 09:04 | XMS_ITS | Encounter Summary ---
Author Organization [employer] Address 75 [facility] 7t [place] [address] Care Team Providers Care Sample Processor Name Role Phone Mackenzie Estrada MD Primary Care Provider [phone] Reason for Visit * Reason Onset Date Comments Triage 11/10/2022 Encounter Details Date Type Department Care Team ([facility] Contact Info) Description 11/10/2022 Telephone [facility] MEDICINE 230 [place], [place] [phone] Mackenzie Estrada MD 230 [place], [place] [phone] Triage Social History Tobacco Use Types Packs/Day [...] - 11/11/2022 11:10 AM EDT TC to [phone] via [employer] interpreters in regards to below message. Pt reports she went to [facility] since [facility] did not return her call. RN informed pt triage nurses attempted to call pt x2 however pt did not answer. RN reviewed [facility] ED note and pt presented to ED [...] she has not been able to picker tender the nystatin medication because [facility] did not have it. RN asked if [facility] informed the pt they were going to order it however pt was not sure. RN placed pt on hold and called [facility] pharmacy who reports it is supposed to be arriving in store today and pt should call around 3pm to inquire if it was received and ready for picker tender. Pt verbalized understanding. RN advised pt if her rash does not resolve with medication and her pain does not resolve to call [facility] to schedule an appt for further evaluation. Pt verbalized understanding. Pt to F/U PRN. RN has printed ED note and placed in scan bin * Telephone Encounter - Chika Ingram LPN - 11/10/2022 2:30 PM EDT Triage call returned to patient with [employer] foreign language stenographer [phone] to listed number x 2 no answer. Left message to return call to [phone]. Team Nurses tasked to follow with patient [...] Description 12/11/2024 9:45 AM EDT Office Visit [address] [address] 12/28/2024 9:45 AM EDT Office Visit [address] [address] Mackenzie Estrada MD [address] [place] [address] documented as of this encounter Visit Diagnoses Not on filedocumented in this encounter Care Teams Sample Processor Relationship Specialty Start Date End Date Mackenzie Estrada MD [address] [place] [address] PCP - General Family Medicine 07/10/20 documented as of this encounter
--- OUTSIDE RECORDS SUMMARY | 2024-11-20 09:04 | XMS_ITS | Encounter Summary ---
Author Organization [employer] Address [address] [facility] [address] 7t [place] [address] Care Team Providers Care Electroencephalograph Technologist Name Role Phone Mackenzie Estrada MD Primary Care Provider Encounter Details Date Type Department Care Team ([facility] st Contact Info) Description 05/21/2024 Telephone [facility] MEDICINE 230 [place], [place] [phone] Mackenzie Estrada MD 230 [place] [address] Social History Tobacco Use Types Packs/Day Years [...] Description 12/11/2024 9:45 AM EDT Office Visit [address] [address] 12/28/2024 9:45 AM EDT Office Visit [address] [address] Mackenzie Estrada MD [address] [place] [address] documented as of this encounter Goals Goal [...] documented as of this encounter Care Teams Electroencephalograph Technologist Relationship Specialty Start Date End Date Mackenzie Estrada MD [address] [place] [address] PCP - General Family Medicine 07/10/20 documented as of this encounter
--- OUTSIDE RECORDS SUMMARY | 2024-11-20 09:04 | XMS_ITS | Encounter Summary ---
Author Organization [employer] Address 75 [facility] 7t [place] [address] Care Team Providers Care Motor Grader Rough Grade Name Role Phone Mackenzie Estrada MD Primary Care Provider [phone] Reason for Visit * Reason Onset Date Comments Appointment Request 08/16/2023 Encounter Details Date Type Department Care Team ([facility] Contact Info) Description 08/16/2023 Telephone [facility] MEDICINE 230 [place], [place] [phone] Mackenzie Estrada MD 230 [place] [address] Appointment Request Social History Tobacco Use Types [...] be seen today. Please contact pt @ [phone] Kosovan Speaker documented in this encounter Plan of Treatment Upcoming Encounters Date Type Department Care Team (Late st Contact Info) Description 12/11/2024 9:45 AM EDT Office Visit [facility] [address] [place] [address] 12/28/2024 9:45 AM EDT Office Visit [facility] 230 [place] [address] Mackenzie Estrada MD 230 [place] [address] documented as of this encounter Goals Goal Patient Goal Type Associated Problems Recent Progress Patient-Stated? Author Quit using tobacco (cigarettes, smokeless, etc) Tobacco Use No Corey Lin, KelechiD documented as of this encounter Visit Diagnoses Not on filedocumented in this encounter Care Teams Motor Grader Rough Grade Relationship Specialty Start Date End Date Mackenzie Estrada MD [address] [place] [address] PCP - General Family Medicine 07/10/20 documented as of this encounter
--- OUTSIDE RECORDS SUMMARY | 2024-11-20 09:04 | XMS_ITS | Encounter Summary ---
Author Organization [employer] Address 75 [facility] 7t [place] [address] Care Team Providers Care Paper Grader Name Role Phone Mackenzie Estrada MD Primary Care Provider [phone] Reason for Visit * Reason Comments Med Refill Encounter Details Date Type Department Care Team ([facility] st Contact Info) Description 01/12/2024 Refill [facility]INE 230 [place], [place] [phone] Mackenzie Estrada MD 230 [place], [place] [phone] Rheumatoid arthritis involving multiple sites with positive rheumatoid factor ([facility]) Social History Tobacco Use Types [...] 9:45 AM EDT Office Visit [facility] [address] [place] [address] 12/28/2024 9:45 AM EDT Office Visit [address] [address] Mackenzie Estrada MD [address] [place] [address] documented as of this encounter Goals Goal Patient Goal Type Associated Problems Recent Progress Patient-Stated? Author Quit using tobacco (cigarettes, smokeless, etc) Tobacco Use No Corey Lin, KelechiD documented as of this encounter Visit Diagnoses Diagnosis Rheumatoid arthritis involving multiple sites with positive rheumatoid factor ([facility]) documented in this encounter Care Teams Paper Grader Relationship Specialty Start Date End Date Mackenzie Estrada MD [address] [place] [address] PCP - General Family Medicine 07/10/20 documented as of this encounter
--- OUTSIDE RECORDS SUMMARY | 2024-11-20 09:04 | XMS_ITS | Encounter Summary ---
Author Organization [employer] Address [address] [facility] 7[address] [place] [address] Care Team Providers Care Transitions Rn Care Coordinator Name Role Phone Mackenzie Estrada MD Primary Care Provider [phone] Reason for Visit * Reason Comments Med Refill Encounter Details Date Type Department Care Team ([facility] Contact Info) Description 07/28/2022 Refill [facility] MED[facility]INE [address] [place] [address] Mackenzie Estrada MD [address] [place] [address] Pain in both hands Social History Tobacco [...] Upcoming Encounters Date Type Department Care Team ([facility] Contact Info) Description 12/11/2024 9:45 AM EDT Office Visit [facility] [address] [place] [phone] 12/28/2024 9:45 AM EDT Office Visit [facility] [address] [place] [id number] Mackenzie Estrada MD [address] [place] [phone] documented as of this encounter Visit Diagnoses Diagnosis Pain in both hands documented in this encounter Care Teams Transitions Rn Care Coordinator Relationship Specialty Start Date End Date Mackenzie Estrada MD [address] [place] [phone] PCP - General Family Medicine 07/10/20 documented as of this encounter
--- OUTSIDE RECORDS SUMMARY | 2024-11-20 09:04 | XMS_ITS | Encounter Summary ---
Author Organization [employer] Address [address] [facility] 7t [place] [address] Care Team Providers Care Stunt Woman Name Role Phone Mackenzie Estrada MD Primary Care Provider [phone] Reason for Visit * Reason Comments Med Refill Encounter Details Date Type Department Care Team ([facility] st Contact Info) Description 07/26/2023 Refill [facility] MEDICINE [address] [place], [place] [phone] Name, MD Mark [address] [place] [address] Pain in both hands Social History Tobacco [...] Description 12/11/2024 9:45 AM EDT Office Visit [address] [address] 12/28/2024 9:45 AM EDT Office Visit [address] [address] Mackenzie Estrada MD [address] [place] [phone] documented as of this encounter Goals Goal Patient Goal Type Associated Problems Recent Progress Patient-Stated? Author Quit using tobacco (cigarettes, smokeless, etc) Tobacco Use No Corey Lin, PharmD documented as of this encounter Visit Diagnoses Diagnosis Pain in both hands documented in this encounter Care Teams Stunt Woman Relationship Specialty Start Date End Date Mackenzie Estrada MD [address] [place] [id number] PCP - General Family Medicine 07/10/20 documented as of this encounter
--- OUTSIDE RECORDS SUMMARY | 2024-11-20 09:04 | XMS_ITS | Encounter Summary ---
Author Organization [employer] Address [address] [facility] 7[address] [place] [address] Care Team Providers Care Sampler Pickup Name Role Phone Mackenzie Estrada MD Primary Care Provider [phone] Reason for Visit * Reason Comments Med Refill Encounter Details Date Type Department Care Team ([facility] Contact Info) Description 07/27/2023 Refill [facility] MEDICINE [address] [place], [place] [phone] Name, MD Mark [address] [place] [address] Pain in both hands Social History Tobacco [...] 12/11/2024 9:45 AM EDT Office Visit [address] [address] 12/28/2024 9:45 AM EDT Office Visit [address] [address] Mackenzie Estrada MD [address] [place] [phone] documented as of this encounter Goals Goal Patient Goal Type Associated Problems Recent Progress Patient-Stated? Author Quit using tobacco (cigarettes, smokeless, etc) Tobacco Use No Corey Lin, PharmD documented as of this encounter Visit Diagnoses Diagnosis Pain in both hands documented in this encounter Care Teams Sampler Pickup Relationship Specialty Start Date End Date Mackenzie Estrada MD [address] [place] [phone] PCP - General Family Medicine 07/10/20 documented as of this encounter
== END 2024-11-20 09:25 | disposition home or self-care (01) ==
LOC: HO.HVS 08:42
PROVIDERS: PCP General Practice; Visit Provider Surgery Vascular Surgery
DX: I73.9 Peripheral vascular disease, unspecified (principal)
CPT/HCPCS: 99214

== ENCOUNTER → 2024-11-20 08:41 | Outpatient (BNVA) | payer MEDICAID, SELFPAY | PROVIDERS: PCP General Practice; Visit Provider Surgery Vascular Surgery | DX: I73.9 Peripheral vascular disease, unspecified (principal) | CPT/HCPCS: 99212 ==

== ENCOUNTER 2024-11-25 09:41 | Emergency (ER) | payer MEDICAID, SELFPAY ==
--- NOTE | ~2024-11-25 | XR_ITS ---
CLINICAL HISTORY: pain 3 views lumbar spine Comparison: None Findings: Normal alignment. No acute fractures or dislocation. Mild degenerative changes with osteophytes. There is narrowing of the L5-S1 intervertebral disc space. IMPRESSION: No acute findings. This document has been electronically signed by: Weston Elliott MD on 11/25/2024 13:02:31
--- NOTE | ~2024-11-25 | XR_ITS ---
CLINICAL HISTORY: pain 3 view, pelvis and right hip Comparison: CR/SR - XR HIP RT MIN 2V - 07/12/24 03:48 EST Findings: The bones are intact. No significant arthritic change. The soft tissues are unremarkable. IMPRESSION: No acute findings. This document has been electronically signed by: Weston Elliott MD on 11/25/2024 13:00:35
[2024-11-25 09:51] VITALS: BP 107/69; PULSE 74; RESP 18; TEMP 36.6; O2SAT 98; BMI 27.0
[2024-11-25 11:04] VITALS: BP 127/76; PULSE 61; RESP 18; TEMP 37.1; O2SAT 98
--- NOTE | 2024-11-25 11:10 | PC.NURSE ---
Patient presents with c/o sudden onset right hip pain radiating to knee which occurred last night. Difficulty weight bearing. Tender upon palpation. Good pedal pulses and CSM note to extremitiy. 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 Alert and oriented, primarily arabic speaking. Respirations even and non-labored. Pending provider eval.
--- NOTE | 2024-11-25 11:40 | ED.GENADULT ---
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 Patient reports right lower back pain/hip pain that started yesterday and radiates down around the right side of her leg Denies any trauma or heavy lifting. 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 need to do any chores around the house Denies any leg swelling, fevers, chills Related Data Home Medications ?Medication ?Instructions ?Recorded ?Confirmed alprazolam 1 mg tablet 1 mg PO BEDTIME PRN Anxiety 12/10/22 10/16/24 albuterol sulfate 90 mcg/actuation 2 puff inhalation Q6H PRN Wheezing 02/20/24 10/16/24 aerosol inhaler gabapentin 400 mg capsule 400 mg PO TID 04/23/24 10/16/24 oxycodone-acetaminophen 7.5 mg-325 1 tab PO Q8H PRN severe pain 04/23/24 10/16/24 mg tablet trazodone 150 mg tablet 150 mg PO BEDTIME PRN anxiety/sleep 04/23/24 10/16/24 cholecalciferol (vitamin D3) 25 25 mcg PO DAILY 05/27/24 10/16/24 mcg (1,000 unit) capsule (Vitamin D3) cyanocobalamin (vitamin B-12) 1,000 mcg IM QMONTH 05/27/24 10/16/24 1,000 mcg/mL injection solution docusate sodium 100 mg capsule 100 mg PO BID PRN Constipation 05/27/24 10/16/24 (Colace) polyethylene glycol 3350 17 17 g PO DAILY PRN Constipation 05/27/24 10/16/24 gram/dose oral powder risperidone 1 mg tablet 0.5 mg PO DAILY PRN 05/27/24 10/16/24 anxiety/agitation/paranoia apixaban 5 mg tablet (Eliquis) 5 mg PO BID 06/12/24 10/16/24 atorvastatin 80 mg tablet 80 mg PO DAILY 06/12/24 10/16/24 ferrous sulfate 325 mg (65 mg 325 mg PO QAM 06/12/24 10/16/24 iron) tablet lidocaine-prilocaine 2.5 %-2.5 % 1 appl topical Q8-12H PRN moderate 06/12/24 10/16/24 topical cream pain nicotine 7 mg/24 hr daily 1 patch transdermal Q24H 06/12/24 10/16/24 transdermal patch sertraline 50 mg tablet (Zoloft) 75 mg PO DAILY 06/12/24 10/16/24 umeclidinium 62.5 mcg/actuation 1 inh inhalation DAILY 06/12/24 10/16/24 blister powder for inhalation (Incruse Ellipta) ursodiol 250 mg tablet 250 mg PO BID 06/12/24 10/16/24 vitamin A 3,000 mcg (10,000 unit) 1 cap PO DAILY 06/12/24 10/16/24 capsule benztropine 0.5 mg tablet 0.5 mg PO DAILY 08/27/24 10/16/24 cetirizine 10 mg tablet 10 mg PO QAM neuropathic pain 08/27/24 10/16/24 clopidogrel 75 mg tablet 75 mg PO DAILY 08/27/24 10/16/24 cyclobenzaprine 5 mg tablet 5 mg PO TID PRN 08/27/24 10/16/24 diclofenac sodium 1 % topical gel 2 g topical QID 08/27/24 10/16/24 famotidine 20 mg tablet 20 mg PO BID 08/27/24 10/16/24 metoprolol succinate 50 mg 50 mg PO DAILY 08/27/24 10/16/24 tablet,extended release 24 hr nicotine (polacrilex) 4 mg gum 4 mg PO DIRECTED 08/27/24 10/16/24 nicotine 14 mg/24 hr daily 1 patch topical QAM 08/27/24 10/16/24 transdermal patch Previous Rx's ?Medication ?Instructions ?Recorded ascorbic acid (vitamin C) 500 mg 1,000 mg (2 x 500 mg) PO QAM #180 05/28/24 tablet (Vitamin C) tabs doxycycline hyclate 100 mg tablet 100 mg PO BID 7 days #14 tabs 06/13/24 prednisone 20 mg tablet 40 mg (2 x 20 mg) PO DAILY #10 tabs 07/08/24 acetaminophen 500 mg tablet 500 mg PO QID PRN pain #30 tabs 07/27/24 (Tylenol Extra Strength) lidocaine 5 % topical patch 1 patch topical DAILY #30 ea 07/27/24 (Lidoderm) pantoprazole 40 mg tablet,delayed 40 mg PO DAILY #90 tabs 07/30/24 release folic acid 1 mg tablet 1 mg PO DAILY #90 tabs 10/16/24 methotrexate sodium 2.5 mg tablet 25 mg (10 x 2.5 mg) PO QWEEK #120 10/16/24 tabs cyclobenzaprine 10 mg tablet 10 mg PO TID PRN muscle spasm #20 11/25/24 tabs dexamethasone 4 mg tablet 4 mg PO BID #6 tabs 11/25/24 Allergies Allergy/AdvReac Type Severity Reaction Status Date / Time almond [ALMONDS] Allergy Severe ANAPHYLAXIS Verified 11/25/24 09:53 adhesive tape [ADHESIVE TAPE] Allergy Intermediate RASH Verified 11/25/24 09:53 morphine [MORPHINE] Allergy Intermediate GI UPSET, Verified 11/25/24 09:53 difficulty breathing leflunomide AdvReac Intermediate twitching Verified 11/25/24 09:53 tramadol [TRAMADOL] AdvReac Unknown NAUSEA & Verified 11/25/24 09:53 VOMITING Review of Systems Constitutional: Constitutional: Denies body ache(s), Denies chills, Denies fever(s) and Denies headache(s) Eyes: Eyes: Denies blurry vision ENT: Denies vertigo, Denies dizziness and Denies headache(s) Cardiovascular: Cardiovascular: Denies chest pain Gastrointestinal: Gastrointestinal: Denies abdominal pain, Denies nausea and Denies vomiting Musculoskeletal: Musculoskeletal: Reports back pain, Reports arthralgias, Denies joint swelling, Reports limited range of motion, Reports radiating pain into limb and Reports stiffness Neurologic: Denies vertigo, Denies dizziness and Denies headache(s) [facility] Past Medical History Medical History (Updated 11/25/24 @ 14:07 by Rohan Blanchard) PAD (peripheral artery disease) Skin lesion Anxiety Achilles tendinitis Superficial femoral artery occlusion Knee pain, left Depression Hx of peripheral pulmonary artery stenosis History of chemotherapy Cancer of heart Bone cancer Lung cancer Iron deficiency Seropositive rheumatoid arthritis Bleeding hemorrhoid Degeneration, intervertebral disc, lumbar Chronic GERD Degeneration of intervertebral disc at C4-C5 level Osteoarthritis of spine with radiculopathy, lumbar region Fibromyalgia Esophageal dysphagia Vitamin D deficiency Systemic lupus erythematosus Seropositive rheumatoid arthritis Rheumatoid arthritis involving multiple sites Gallstones Stress incontinence in female Nocturia Urgency-frequency syndrome De Quervain's disease (tenosynovitis) Depressive disorder Acute arthritis Hodgkin disease Surgical History History of heart surgery History of surgical removal of skin lesion (~07/13/23) History of angioplasty of vein History of biopsy H/O tubal ligation Hx of endoscopy Hx laparoscopic cholecystectomy Hx of colonoscopy History of esophagogastroduodenoscopy (EGD) History of repair of inguinal hernia History of lymph node dissection of left axilla Family History Family History Maternal Grandmother Ovarian cancer Social History Social History Household Members: Significant Other Housing: Apartment Are you a primary critical care clinical nurse specialist to a significant other at home: No Unable to assess alcohol history related to: Unknown Alcohol intake: never Comment: son at bedside Patient Tobacco Use Status: Never used Tobacco Tobacco use type: Cigarette Cigarette Packs Per Day: 1 Cigarettes Per Day: 20.0 Smoked in Last 30 Days: Yes Substance Use Type: Marijuana Advance Directives: No Advance Directives Information Provided: No Advance Directives Date on File: 02/24/24 Do you have a plan to hurt others: No Plan service: No Current occupational status: disabled 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 Physical Exam ED Vital Signs: Vital Signs - 24 hr 11/25/24 09:51 11/25/24 11:04 Temperature 98 F 98.8 F Pulse Rate 74 61 Respiratory Rate 18 18 Blood Pressure 107/69 127/76 Pulse Oximetry 98 98 Oxygen Delivery Method Room Air BMI result Body Mass Index 27.0 Const General: healthy appearing, comfortable, no acute distress, alert and awake Nutritional Appearance: well nourished Orientation/consciousness: patient oriented x3 HENMT Head: Yes normocephalic and Yes atraumatic Eyes Eyelids: Yes eyelids normal Conjunctivae: conjunctivae normal Sclerae: sclerae normal Corneas: corneas normal Pupils: Equal, round and reactive pupils present EOM: EOMs intact bilaterally Neck Neck: Yes full ROM Resp Effort & Inspection: normal respiratory effort, able to speak in complete sentences and not labored GI Inspection: No distended Palpation (GI): Soft to palpation, not firm, nontender, no guarding and not rigid Back/Spine/Pelvis Other: Tenderness in the right lumbosacral region, right hip. There are no visual or palpable deformities. The patient has a positive straight leg raise on right. There was no calf tenderness Skin General skin exam: elasticity normal Neuro General: patient oriented x3 Cranial nerves: Yes Equal, round and reactive pupils present and Yes Bilaterally intact EOM present Cognition (Neuro): normal cognition Course Reevaluation(s) Reevaluation #1: Patient's pain has nearly completely resolved. I reviewed her x-ray that showed no acute bony abnormalities. I discussed this with the patient. Her son your likely related to sciatica. We will discharge her with a short course of dexamethasone and cyclobenzaprine. She was advised not to mix these with her narcotic pain medication she has a home. Time: 14:06 Medications Administered Discontinued Medications Generic Name Dose Route Start Last Admin Trade Name Freq PRN Reason Stop Dose Admin Hydromorphone HCl 1 mg 11/25/24 11:38 11/25/24 12:04 Hydromorphone Hcl 1 Mg/Ml Syringe IM 11/25/24 11:39 1 mg ONCE ONE Administration Protocol Medical Decision Making Medical Decision Making [facility] Narrative: 49-year-old female with a past medical history as above presents for evaluation of right hip and lower back pain. Her pain radiates around the side of her right leg consistent with a sciatic pattern. She denies any trauma or injury. She does carry a diagnosis of rheumatoid arthritis which could explain her pain. Also in differential to be avascular necrosis, osteoarthritis muscle strain, sciatica. She reports being compliant with her Eliquis, DVT is favored to be less likely. Plan for x-rays of the lumbar spine and right hip. Differential Diagnosis Differential Diagnoses: The differential diagnosis associated with the presentation includes As above Radiology Impression Discussion of test interpretation with radiology: I have reviewed the radiologist's reading. Radiologist Impression: Findings: The bones are intact. No significant arthritic change. The soft tissues are unremarkable. IMPRESSION: No acute findings. This document has been electronically signed by: Weston Elliott MD on 11/25/2024 13:00:35 Findings: Normal alignment. No acute fractures or dislocation. Mild degenerative changes with osteophytes. There is narrowing of the L5-S1 intervertebral disc space. IMPRESSION: No acute findings. This document has been electronically signed by: Weston Elliott MD on 11/25/2024 13:02:31 Prescription Management I considered prescription management with: Pain Medication Discharge Plan Discharge Clinical Impression: Acute pain of right hip, Acute low back pain Patient Disposition: Home, Self-Care Instructions: Sciatica (ED), Acute Low Back Pain (ED) Additional Instructions: Your workup in the ER today was reassuring. Your x-rays did not show any abnormalities. Your symptoms are likely related to a pinched nerve, take the dexamethasone twice daily for 3 days and the muscle relaxers as needed for muscle spasms. Follow-up with your primary doctor, return for new or worsening symptoms Prescriptions: New dexamethasone 4 mg tablet 4 mg PO BID Qty: 6 0RF cyclobenzaprine 10 mg tablet 10 mg PO TID PRN (Reason: muscle spasm) Qty: 20 0RF No Action ascorbic acid (vitamin C) [Vitamin C] 500 mg tablet 1,000 mg PO QAM Qty: 180 2RF pantoprazole 40 mg tablet,delayed release (DR/EC) 40 mg PO DAILY Qty: 90 1RF atorvastatin 80 mg tablet 80 mg PO DAILY lidocaine-prilocaine 2.5-2.5 % cream 1 appl topical Q8-12H PRN (Reason: moderate pain) ferrous sulfate 325 mg (65 mg iron) tablet 325 mg PO QAM ursodiol 250 mg tablet 250 mg PO BID sertraline [Zoloft] 50 mg tablet 75 mg PO DAILY Eliquis 5 mg tablet 5 mg PO BID Incruse Ellipta 62.5 mcg/actuation blister with device 1 inh INHALATION DAILY vitamin A 3,000 mcg (10,000 unit) capsule 1 cap PO DAILY nicotine 7 mg/24 hr Patch 24 Hour 1 patch TRANSDERMAL Q24H doxycycline hyclate 100 mg tablet 100 mg PO BID 7 Days Qty: 14 0RF prednisone 20 mg tablet 40 mg PO DAILY Qty: 10 0RF albuterol sulfate 90 mcg/actuation Hfa Aerosol Inhaler 2 puff INHALATION Q6H PRN (Reason: Wheezing) polyethylene glycol 3350 17 gram/dose powder 17 g PO DAILY PRN (Reason: Constipation) risperidone 1 mg tablet 0.5 mg PO DAILY PRN (Reason: anxiety/agitation/paranoia) cholecalciferol (vitamin D3) [Vitamin D3] 25 mcg (1,000 unit) capsule 25 mcg PO DAILY docusate sodium [Colace] 100 mg capsule 100 mg PO BID PRN (Reason: Constipation) cyanocobalamin (vitamin B-12) 1,000 mcg/mL Solution 1,000 mcg IM QMONTH acetaminophen [Tylenol Extra Strength] 500 mg tablet 500 mg PO QID PRN (Reason: pain) Qty: 30 0RF lidocaine [Lidoderm] 5 % adhesive patch,medicated 1 patch topical DAILY Qty: 30 0RF Rx Instructions: leave on most painful area for up to 12 hrs alprazolam 1 mg tablet 1 mg PO BEDTIME PRN (Reason: Anxiety) trazodone 150 mg tablet 150 mg PO BEDTIME PRN (Reason: anxiety/sleep) oxycodone-acetaminophen 7.5-325 mg tablet 1 tab PO Q8H PRN (Reason: severe pain) gabapentin 400 mg capsule 400 mg PO TID methotrexate sodium 2.5 mg tablet 25 mg PO QWEEK Qty: 120 1RF Rx Instructions: Split dose into 5 tabs in the morning and 5 tabs at night folic acid 1 mg tablet 1 mg PO DAILY Qty: 90 1RF benztropine 0.5 mg tablet 0.5 mg PO DAILY cetirizine 10 mg tablet 10 mg PO QAM clopidogrel 75 mg tablet 75 mg PO DAILY cyclobenzaprine 5 mg tablet 5 mg PO TID PRN diclofenac sodium 1 % gel 2 g topical QID famotidine 20 mg tablet 20 mg PO BID nicotine (polacrilex) 4 mg gum 4 mg PO DIRECTED metoprolol succinate 50 mg tablet extended release 24 hr 50 mg PO DAILY nicotine 14 mg/24 hr patch 24 hour 1 patch topical QAM Print Language: Azeri
[2024-11-25] MEDS: HYDROmorphone HCl 1 MG/ML SYRINGE IM (12:04)
[2024-11-25 14:25] VITALS: BP 127/76; PULSE 61; RESP 18; TEMP 37.1; O2SAT 98
== END 2024-11-25 14:27 | disposition home or self-care (01) ==
PROVIDERS: Emergency Provider Emergency Medicine; PCP General Practice
DX: M25.551 Pain in right hip (principal); M54.50 Low back pain, unspecified; I82.409 Acute embolism and thrombosis of unspecified deep veins of unspecified lower extremity; I25.10 Atherosclerotic heart disease of native coronary artery without angina pectoris; Z79.01 Long term (current) use of anticoagulants; Z79.899 Other long term (current) drug therapy
CPT/HCPCS: 72100; 73502; 96372; 99284; J1171

== ENCOUNTER → 2024-11-25 11:38 | Outpatient (BNV) | payer MEDICAID, SELFPAY | PROVIDERS: Emergency Provider Emergency Medicine; PCP General Practice; Visit Provider Nuclear Medicine | DX: M25.551 Pain in right hip (principal); M54.50 Low back pain, unspecified | CPT/HCPCS: 72100; 73502 ==

== ENCOUNTER 2025-01-17 10:29 | Emergency (ER) | payer MEDICAID, SELFPAY ==
[2025-01-17] VITALS (7 sets, daily range): BP systolic 112–132; BP diastolic 71–78; PULSE 68–84; RESP 18; TEMP 36.4–36.7; O2SAT 97–100; BMI 32.6
--- NOTE | 2025-01-17 | ECG_ITS ---
Test Reason : DIZZINESS Blood Pressure : */* mmHG Vent. Rate : 65 BPM Atrial Rate : 65 BPM P-R Int : 170 ms QRS Dur : 112 ms QT Int : 392 ms P-R-T Axes : 54 -58 54 degrees QTcB Int : 407 ms Normal sinus rhythm Left anterior fascicular block Moderate voltage criteria for LVH, may be normal variant ( R in aVL , Remy product ) Septal infarct (cited on or before 06-Apr-2019) Abnormal ECG When compared with ECG of 09-Nov-2024 10:28, No significant change was found Referred By: Jana Singh Electronically Signed By: Ruddy Larios
--- NOTE | ~2025-01-17 | XR_ITS ---
EXAMINATION: XR FOOT, LEFT CLINICAL INFORMATION: pain COMPARISON: None available. TECHNIQUE: AP, lateral, and oblique views of the left foot. FINDINGS: Again seen is linear density overlapping the distal dorsal articulation of navicular bone visible on the lateral view only. No abnormality is evident on other projections. Again seen is a small plantar calcaneal spur. Moderate hallux valgus deformity is present. XR/XR foot LT min 3V IMPRESSION: Again seen is linear density projecting over the dorsal third distal articular surface of navicular bone on the lateral projection only. This is probably related to overlap of the dorsal cortex of cuboid. If mechanism and symptoms are concerning for a fracture in this region, consider CT of the hindfoot and midfoot without contrast. Hallux valgus deformity. Electronically signed by: Hayden Jacobson MD 01/17/2025 01:26 PM EDT
--- NOTE | ~2025-01-17 | XR_ITS ---
EXAMINATION: XR ANKLE, LEFT CLINICAL INFORMATION: swelling, pain COMPARISON: None available. TECHNIQUE: AP, lateral, and mortise views of the left ankle. FINDINGS: Ankle mortise is congruent. There is no widening of the syndesmosis. [place] dome is intact. On the lateral view, there is a linear density through the distal articular surface of the dorsal third of navicular bone. There is a small plantar calcaneal spur. There is soft tissue swelling distal to the malleoli. XR/XR ankle LT min 3V IMPRESSION: Linear densities in the dorsal navicular bone on the lateral view is probably related to projection/overlapping tarsal bones. If there is concern for fracture in this region, consider dedicated x-rays of the midfoot. Mild soft tissue swelling. Plantar calcaneal spur, nonspecific finding. Electronically signed by: Hayden Jacobson MD 01/17/2025 01:20 PM EDT
--- NOTE | ~2025-01-17 | XR_ITS ---
EXAMINATION: XR ELBOW, LEFT CLINICAL INFORMATION: pain COMPARISON: None available. TECHNIQUE: AP, lateral, and oblique views of the left elbow. FINDINGS: No joint effusion is evident. There is anatomic alignment of the radiohumeral joint. No osteophytes are evident. There is no joint space narrowing. No fracture line was seen. XR/XR elbow LT min 3V IMPRESSION: Unremarkable left elbow. Electronically signed by: Hayden Jacobson MD 01/17/2025 01:16 PM EDT
--- NOTE | ~2025-01-17 | US_ITS ---
EXAMINATION: US TRIPLEX LOWER EXTREMITY, LEFT CLINICAL INFORMATION: Left lower extremity swelling COMPARISON: None available. TECHNIQUE: Color-flow triplex imaging with spectral analysis and compression Doppler were performed on the left lower extremity. FINDINGS: Respiratory variation, normal compression and augmented flow are noted throughout the left lower extremity. The visualized common femoral vein, superficial femoral vein, profunda femoral vein, popliteal vein and midcalf peroneal and posterior tibial venous segments show no evidence of deep venous thrombosis. There is a small Dhillon's cyst. US/US venous duplex LE LT IMPRESSION: No evidence of deep venous thrombosis involving the left lower extremity. Electronically signed by: Hayden Jacobson MD 01/17/2025 01:48 PM EDT
[2025-01-17 11:22] LABS: MANUAL DIFF FLAG NO
[2025-01-17 11:24] LABS: Basophils Percent Auto 0.3 % (0-2); Eosinophils Absolute Auto 0.1 X10*3/uL (0.0-0.4); Eosinophils Percent Auto 0.7 % (0-4); Hematocrit 35.5 % (37.0-47.0); Hemoglobin 11.7 g/dl (12.0-16.0); Imm Gran Abs Auto 0.02 X10*3/uL (0.00-0.03); Imm Gran Pct Auto 0.2 % (0.0-0.4); Lymphocytes Absolute Auto 2.2 X10*3/uL (1.2-4.9); Lymphocytes Percent Auto 24.8 % (20-40); Mean Corpuscular Hemoglobin 30.2 pg (27.0-33.0); Mean Corpuscular Volume 91.5 fL (80.0-98.0); Mean Platelet Volume 10.1 fL (9.4-12.3); Monocytes Absolute Auto 0.5 X10*3/uL (0.1-1.2); Monocytes Percent Auto 5.9 % (2-11); Neutrophils Percent Auto 68.1 % (45-73); Platelet Count 186 X10*3/uL (160-400); Red Blood Count 3.88 X10*6/uL (4.20-5.50); Red Cell Distribution Width 16.9 % (11.0-16.0); White Blood Count 8.8 X10*3/uL (4.8-10.8)
[2025-01-17 11:37] LABS: Alanine Aminotransferase 16 U/L (0-31); Albumin Level 4.2 g/dL (3.5-5.0); Alkaline Phosphatase 77 U/L (39-117); Anion Gap 10 (12-20); Aspartate Amino Transferase 24 U/L (5-31); Bilirubin Total 0.5 mg/dL (0.0-1.0); Blood Urea Nitrogen 13 mg/dL (9-16); Calcium 9.6 mg/dL (8.4-10.2); Carbon Dioxide 29 mmol/L (22-29); Chloride 107 mmol/L (96-108); Creatinine Clr Calc Pharmacy 111.1; Estimated Glomerular Filt Rate > 60; Glucose Random 137 mg/dL (60-115); Magnesium 2.1 mg/dL (1.6-2.6); Potassium 3.8 mmol/L (3.3-5.1); Sodium 142 mmol/L (135-145); Total Protein 8.3 g/dL (6.5-8.0)
--- NOTE | 2025-01-17 11:42 | ED.GENADULT ---
HPI - General Adult General Chief complaint: General Medical Stated complaint: Infection L arm Time Seen by Provider: 01/17/25 11:42 Source: patient and RN notes reviewed Mode of arrival: ambulatory Limitations: no limitations History of Present Illness ED Provider: Jana Singh PA-C HPI narrative: This is a 49-year-old female, with a past medical history of CAD, DVT on Eliquis, rheumatoid arthritis on methotrexate, lupus, osteoarthritis, opioid dependence, ischemic cardiomyopathy, NSTEMI, Hodgkin's lymphoma, who presents emergency department with complaints of left elbow pain, swelling, and redness which she noticed yesterday. Patient also reports pain and redness in her left foot. No trauma or injury to her elbow or foot. No fevers or chills. States she has a history of cellulitis in her left arm, in his concerned that this is developing again. She denies any chest pain, shortness of breath, abdominal pain, nausea, vomiting or diarrhea. No fevers or chills. No other complaints or concerns at this time. MD complaint: Elbow redness, swelling Relieving factors: none Exacerbating factors: none Associated symptoms: denies other symptoms Treatments prior to arrival: none Related Data Home Medications ?Medication ?Instructions ?Recorded ?Confirmed alprazolam 1 mg tablet 1 mg PO BEDTIME PRN Anxiety 12/10/22 10/16/24 albuterol sulfate 90 mcg/actuation 2 puff inhalation Q6H PRN Wheezing 02/20/24 10/16/24 aerosol inhaler gabapentin 400 mg capsule 400 mg PO TID 04/23/24 10/16/24 oxycodone-acetaminophen 7.5 mg-325 1 tab PO Q8H PRN severe pain 04/23/24 10/16/24 mg tablet trazodone 150 mg tablet 150 mg PO BEDTIME PRN anxiety/sleep 04/23/24 10/16/24 cholecalciferol (vitamin D3) 25 25 mcg PO DAILY 05/27/24 10/16/24 mcg (1,000 unit) capsule (Vitamin D3) cyanocobalamin (vitamin B-12) 1,000 mcg IM QMONTH 05/27/24 10/16/24 1,000 mcg/mL injection solution polyethylene glycol 3350 17 17 g PO DAILY PRN Constipation 05/27/24 10/16/24 gram/dose oral powder risperidone 1 mg tablet 0.5 mg PO DAILY PRN 05/27/24 10/16/24 anxiety/agitation/paranoia apixaban 5 mg tablet (Eliquis) 5 mg PO BID 06/12/24 10/16/24 atorvastatin 80 mg tablet 80 mg PO DAILY 06/12/24 10/16/24 ferrous sulfate 325 mg (65 mg 325 mg PO QAM 06/12/24 10/16/24 iron) tablet lidocaine-prilocaine 2.5 %-2.5 % 1 appl topical Q8-12H PRN moderate 06/12/24 10/16/24 topical cream pain nicotine 7 mg/24 hr daily 1 patch transdermal Q24H 06/12/24 10/16/24 transdermal patch sertraline 50 mg tablet (Zoloft) 75 mg PO DAILY 06/12/24 10/16/24 umeclidinium 62.5 mcg/actuation 1 inh inhalation DAILY 06/12/24 10/16/24 blister powder for inhalation (Incruse Ellipta) ursodiol 250 mg tablet 250 mg PO BID 06/12/24 10/16/24 benztropine 0.5 mg tablet 0.5 mg PO DAILY 08/27/24 10/16/24 cetirizine 10 mg tablet 10 mg PO QAM neuropathic pain 08/27/24 10/16/24 clopidogrel 75 mg tablet 75 mg PO DAILY 08/27/24 10/16/24 cyclobenzaprine 5 mg tablet 5 mg PO TID PRN 08/27/24 10/16/24 diclofenac sodium 1 % topical gel 2 g topical QID 08/27/24 10/16/24 famotidine 20 mg tablet 20 mg PO BID 08/27/24 10/16/24 metoprolol succinate 50 mg 50 mg PO DAILY 08/27/24 10/16/24 tablet,extended release 24 hr nicotine (polacrilex) 4 mg gum 4 mg PO DIRECTED 08/27/24 10/16/24 nicotine 14 mg/24 hr daily 1 patch topical QAM 08/27/24 10/16/24 transdermal patch Previous Rx's ?Medication ?Instructions ?Recorded ascorbic acid (vitamin C) 500 mg 1,000 mg (2 x 500 mg) PO QAM #180 05/28/24 tablet (Vitamin C) tabs doxycycline hyclate 100 mg tablet 100 mg PO BID 7 days #14 tabs 06/13/24 prednisone 20 mg tablet 40 mg (2 x 20 mg) PO DAILY #10 tabs 07/08/24 acetaminophen 500 mg tablet 500 mg PO QID PRN pain #30 tabs 07/27/24 (Tylenol Extra Strength) lidocaine 5 % topical patch 1 patch topical DAILY #30 ea 07/27/24 (Lidoderm) pantoprazole 40 mg tablet,delayed 40 mg PO DAILY #90 tabs 07/30/24 release folic acid 1 mg tablet 1 mg PO DAILY #90 tabs 10/16/24 methotrexate sodium 2.5 mg tablet 25 mg (10 x 2.5 mg) PO QWEEK #120 10/16/24 tabs cyclobenzaprine 10 mg tablet 10 mg PO TID PRN muscle spasm #20 11/25/24 tabs dexamethasone 4 mg tablet 4 mg PO BID #6 tabs 11/25/24 vitamin A 3,000 mcg (10,000 unit) 1 cap PO QAM #90 caps 11/29/24 capsule docusate sodium 100 mg capsule 100 mg PO BID #60 caps 12/04/24 (Stool Softener) acetaminophen 500 mg tablet 1,000 mg (2 x 500 mg) PO Q8H PRN 01/17/25 (Tylenol Extra Strength) pain #30 tabs cephalexin 500 mg capsule 500 mg PO QID 7 days #28 caps 01/17/25 doxycycline hyclate 100 mg tablet 100 mg PO BID 7 days #14 tabs 01/17/25 Allergies Allergy/AdvReac Type Severity Reaction Status Date / Time almond (ALMONDS) Allergy Severe ANAPHYLAXIS Verified 01/17/25 10:40 adhesive tape (ADHESIVE TAPE) Allergy Intermediate RASH Verified 01/17/25 10:40 morphine (MORPHINE) Allergy Intermediate GI UPSET, Verified 01/17/25 10:40 difficulty breathing leflunomide AdvReac Intermediate twitching Verified 01/17/25 10:40 tramadol (TRAMADOL) AdvReac Unknown NAUSEA & Verified 01/17/25 10:40 VOMITING Review of Systems Review of Systems: Yes all other systems are reviewed and are negative Constitutional: Constitutional: Reports as per [facility] Past Medical History Medical History (Updated 01/18/25 @ 00:00 by Background Nawaf) PAD (peripheral artery disease) Skin lesion Anxiety Achilles tendinitis Superficial femoral artery occlusion Knee pain, left Depression Hx of peripheral pulmonary artery stenosis History of chemotherapy Cancer of heart Bone cancer Lung cancer Iron deficiency Seropositive rheumatoid arthritis Bleeding hemorrhoid Degeneration, intervertebral disc, lumbar Chronic GERD Degeneration of intervertebral disc at C4-C5 level Osteoarthritis of spine with radiculopathy, lumbar region Fibromyalgia Esophageal dysphagia Vitamin D deficiency Systemic lupus erythematosus Seropositive rheumatoid arthritis Rheumatoid arthritis involving multiple sites Gallstones Stress incontinence in female Nocturia Urgency-frequency syndrome De Quervain's disease (tenosynovitis) Depressive disorder Acute arthritis Hodgkin disease Surgical History History of heart surgery History of surgical removal of skin lesion (~07/13/23) History of angioplasty of vein History of biopsy H/O tubal ligation Hx of endoscopy Hx laparoscopic cholecystectomy Hx of colonoscopy History of esophagogastroduodenoscopy (EGD) History of repair of inguinal hernia History of lymph node dissection of left axilla Family History Family History Maternal Grandmother Ovarian cancer Social History Social History Household Members: Significant Other Housing: Apartment Are you a primary care services manager to a significant other at home: No Unable to assess alcohol history related to: Unknown Alcohol intake: never Comment: son at bedside Patient Tobacco Use Status: Never used Tobacco Tobacco use type: Cigarette Cigarette Packs Per Day: 1 Cigarettes Per Day: 20.0 Substance Use Type: Marijuana Advance Directives Date on File: 02/24/24 service: No Current occupational status: disabled 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 Physical Exam ED Vital Signs: Vital Signs - 24 hr 01/17/25 10:38 01/17/25 11:47 Temperature 97.6 F 98.1 F Pulse Rate 84 77 Respiratory Rate 18 18 Blood Pressure 112/71 132/77 Pulse Oximetry 98 100 Oxygen Delivery Method Room Air Room Air BMI result Body Mass Index 32.6 Const General: cooperative, comfortable and no acute distress Orientation/consciousness: patient oriented x3 Limitations: no limitations HENMT Head: Yes normal to inspection, Yes normocephalic and Yes atraumatic Ears: hearing grossly normal bilaterally General nose exam: Normal external nose present Face and sinus: Yes normal facial exam Mouth: Normal oral and palatal mucosa present, oropharynx normal and moist mucous membranes Throat: Yes posterior oropharynx normal Eyes General: appearance normal, both eyes and all related structures Eyelids: Yes eyelids normal Conjunctivae: conjunctivae normal Sclerae: sclerae normal Pupils: Equal, round and reactive pupils present EOM: EOMs intact bilaterally Neck Neck: Yes normal visual inspection, Yes full ROM and Yes no lymphadenopathy Lymphatic: no lymphadenopathy noted Chest Chest palpation & inspection: normal inspection of the chest Resp Effort & Inspection: normal respiratory effort and able to speak in complete sentences Auscultation: clear to auscultation bilaterally, no crackles, no rales, no rhonchi and no wheezes Cardio Rate: regular rate Rhythm: regular rhythm Heart sounds: S1 normal heart sound present and S2 normal heart sound present GI Inspection: Yes normal to inspection Skin Other: Left elbow with slight erythema and warmth, tender to palpation, full ROM of the elbow without difficulty. Strong radial pulse. Left foot and ankle with edema noted, mild tenderness palpation in the left calf. No pedal edema. Strong DP pulse General skin exam: no rashes or lesions noted Trauma: no lacerations or abrasions Wounds: no wounds Neuro General: patient oriented x3 and moves all extremities Cranial nerves: Yes Equal, round and reactive pupils present Extrem General: Yes normal to inspection Right upper extremity: normal to inspection Left upper extremity: normal to inspection Right lower extremity: normal to inspection Left lower extremity: normal to inspection Medications Administered Discontinued Medications Generic Name Dose Route Start Last Admin Trade Name Freq PRN Reason Stop Dose Admin Acetaminophen 975 mg 01/17/25 12:49 01/17/25 13:12 Acetaminophen 325 Mg Tablet PO 01/17/25 12:50 975 mg ONCE ONE Administration Cephalexin HCl 500 mg 01/17/25 12:51 01/17/25 13:13 Cephalexin 500 Mg Capsule PO 01/17/25 12:52 500 mg ONCE ONE Administration Doxycycline Monohydrate 100 mg 01/17/25 12:51 01/17/25 13:13 Doxycycline Monohydrate 100 Mg Capsule PO 01/17/25 12:52 100 mg ONCE ONE Administration Medical Decision Making Medical Decision Making MDM Narrative: This is a 49-year-old female, with a past medical history of CAD, DVT on Eliquis, rheumatoid arthritis on methotrexate, lupus, osteoarthritis, opioid dependence, ischemic cardiomyopathy, NSTEMI, Hodgkin's lymphoma, who presents emergency department with complaints of left elbow pain, swelling, and redness which she noticed yesterday. On arrival, vital signs within normal limits. Labs revealed no leukocytosis, stable H&H, Chemistry revealing elevated CRP at 3.16. Ultrasound of the left lower extremity reveals no DVT. X-ray revealing linear density in the dorsal navicular bone of the lateral view, she is nontender in this area, therefore do not suspect fracture. There is mild soft tissue swelling, and a plantar calcaneal spur. X-ray of the left elbow unremarkable. Area of erythema outlined with skin marker. Discharged on doxycycline and Keflex. Given strict return precautions. She understands and agrees with plan. Patient stable for discharge Differential Diagnosis Differential Diagnoses: The differential diagnosis associated with the presentation includes Cellulitis, osteomyelitis, abscess, cyst Admission/Observation Consideration of admission/observation: Escalation of care including admission/observation considered Lab Data [facility] Lab Attestation statement: I reviewed the patient's lab results. See MDM and course 01/17/25 11:17 01/17/25 11:17 Labs: Lab Results 01/17/25 Range/Units 11:17 WBC 8.8 (4.8-10.8) X10*3/uL RBC 3.88 L (4.20-5.50) X10*6/uL Hgb 11.7 L (12.0-16.0) g/dl Hct 35.5 L (37.0-47.0) % MCV 91.5 (80.0-98.0) fL MCH 30.2 (27.0-33.0) pg MCHC 33.0 (31.0-35.0) g/dl RDW 16.9 H (11.0-16.0) % Plt Count 186 D (160-400) X10*3/uL MPV 10.1 (9.4-12.3) fL Immature Gran % (Auto) 0.2 (0.0-0.4) % Neut % (Auto) 68.1 (45-73) % Lymph % (Auto) 24.8 (20-40) % [place] % (Auto) 5.9 (2-11) % Eos % (Auto) 0.7 (0-4) % Baso % (Auto) 0.3 (0-2) % Lymph # (Auto) 2.2 (1.2-4.9) X10*3/uL [place] # (Auto) 0.5 (0.1-1.2) X10*3/uL Eos # (Auto) 0.1 (0.0-0.4) X10*3/uL Baso # (Auto) 0.0 (0.0-0.2) X10*3/uL Abs Immat Gran (auto) 0.02 (0.00-0.03) X10*3/uL Absolute Neuts (auto) 6.0 (2.0-8.3) x10*3/uL Absolute Nucleated RBC 0.000 (0.0-0.012) X10*3/uL Nucleated RBC % (auto) 0.0 (0.0-0.2) /100WBC ESR 79 H (0-20) MM/HR Sodium 142 (135-145) mmol/L Potassium 3.8 (3.3-5.1) mmol/L Chloride 107 (96-108) mmol/L Carbon Dioxide 29 (22-29) mmol/L Anion Gap 10 L (12-20) BUN 13 (9-16) mg/dL Creatinine 0.61 (0.5-1.4) mg/dL Estim Creat Clear Calc 111.1 Estimated GFR > 60 Random Glucose 137 H (60-115) mg/dL Calcium 9.6 (8.4-10.2) mg/dL Magnesium 2.1 (1.6-2.6) mg/dL Total Bilirubin 0.5 (0.0-1.0) mg/dL AST 24 (5-31) U/L ALT 16 (0-31) U/L Alkaline Phosphatase 77 (39-117) U/L C-Reactive Protein 3.16 H (< or = 0.50) mg/dL Total Protein 8.3 H (6.5-8.0) g/dL Albumin 4.2 (3.5-5.0) g/dL Radiology Impression Discussion of test interpretation with radiology: I have reviewed the radiologist's reading. Radiologist Impression: FINDINGS: No joint effusion is evident. There is anatomic alignment of the radiohumeral joint. No osteophytes are evident. There is no joint space narrowing. No fracture line was seen. XR/XR elbow LT min 3V IMPRESSION: Unremarkable left elbow. Electronically signed by: Hayden Jacobson MD 01/17/2025 01:16 PM EDT RP Dictated By: Hayden Jacobson MD XR/XR foot LT min 3V IMPRESSION: Again seen is linear density projecting over the dorsal third distal articular surface of navicular bone on the lateral projection only. This is probably related to overlap of the dorsal cortex of cuboid. If mechanism and symptoms are concerning for a fracture in this region, consider CT of the hindfoot and midfoot without contrast. Hallux valgus deformity. Electronically signed by: Hayden Jacobson MD 01/17/2025 01:26 PM EDT RP Dictated By: Hayden Jacobson MD FINDINGS: Respiratory variation, normal compression and augmented flow are noted throughout the left lower extremity. The visualized common femoral vein, superficial femoral vein, profunda femoral vein, popliteal vein and midcalf peroneal and posterior tibial venous segments show no evidence of deep venous thrombosis. There is a small Dhillon's cyst. US/US venous duplex LE LT IMPRESSION: No evidence of deep venous thrombosis involving the left lower extremity. Electronically signed by: Hayden Jacobson MD 01/17/2025 01:48 PM EDT RP Dictated By: Hayden Jacobson MD Signed By: <Electronically signed by Hayden Jacobson MD in OV> Discharge Plan Discharge Clinical Impression: Cellulitis Patient Disposition: Home, Self-Care Instructions: Cellulitis (ED) Additional Instructions: You were seen in the emergency department due to left elbow redness and swelling. You have the start of a skin infection, please take prescribed antibiotic as directed. You already received your 1st dose of doxycycline here in the emergency department. Take 2nd dose later on this evening. Keflex is a antibiotic to be taken 4 times a day. Please take full course of antibiotics as directed, finish the entire course even if your symptoms improve. Drink plenty of fluids get plenty of rest. If any new or worsening symptoms occur including but not limited to worsening pain, fevers, increased redness, decreased range of motion of the joints, please seek emergent care. Prescriptions: New cephalexin 500 mg capsule 500 mg PO QID 7 Days Qty: 28 0RF doxycycline hyclate 100 mg tablet 100 mg PO BID 7 Days Qty: 14 0RF acetaminophen [Tylenol Extra Strength] 500 mg tablet 1,000 mg PO Q8H PRN (Reason: pain) Qty: 30 0RF No Action ascorbic acid (vitamin C) [Vitamin C] 500 mg tablet 1,000 mg PO QAM Qty: 180 2RF pantoprazole 40 mg tablet,delayed release (DR/EC) 40 mg PO DAILY Qty: 90 1RF vitamin A 3,000 mcg (10,000 unit) capsule 1 cap PO QAM Qty: 90 1RF docusate sodium [Stool Softener] 100 mg capsule 100 mg PO BID Qty: 60 3RF atorvastatin 80 mg tablet 80 mg PO DAILY lidocaine-prilocaine 2.5-2.5 % cream 1 appl topical Q8-12H PRN (Reason: moderate pain) ferrous sulfate 325 mg (65 mg iron) tablet 325 mg PO QAM ursodiol 250 mg tablet 250 mg PO BID sertraline [Zoloft] 50 mg tablet 75 mg PO DAILY Eliquis 5 mg tablet 5 mg PO BID Incruse Ellipta 62.5 mcg/actuation blister with device 1 inh INHALATION DAILY nicotine 7 mg/24 hr Patch 24 Hour 1 patch TRANSDERMAL Q24H doxycycline hyclate 100 mg tablet 100 mg PO BID 7 Days Qty: 14 0RF prednisone 20 mg tablet 40 mg PO DAILY Qty: 10 0RF albuterol sulfate 90 mcg/actuation Hfa Aerosol Inhaler 2 puff INHALATION Q6H PRN (Reason: Wheezing) polyethylene glycol 3350 17 gram/dose powder 17 g PO DAILY PRN (Reason: Constipation) risperidone 1 mg tablet 0.5 mg PO DAILY PRN (Reason: anxiety/agitation/paranoia) cholecalciferol (vitamin D3) [Vitamin D3] 25 mcg (1,000 unit) capsule 25 mcg PO DAILY cyanocobalamin (vitamin B-12) 1,000 mcg/mL Solution 1,000 mcg IM QMONTH acetaminophen [Tylenol Extra Strength] 500 mg tablet 500 mg PO QID PRN (Reason: pain) Qty: 30 0RF lidocaine [Lidoderm] 5 % adhesive patch,medicated 1 patch topical DAILY Qty: 30 0RF Rx Instructions: leave on most painful area for up to 12 hrs dexamethasone 4 mg tablet 4 mg PO BID Qty: 6 0RF cyclobenzaprine 10 mg tablet 10 mg PO TID PRN (Reason: muscle spasm) Qty: 20 0RF alprazolam 1 mg tablet 1 mg PO BEDTIME PRN (Reason: Anxiety) trazodone 150 mg tablet 150 mg PO BEDTIME PRN (Reason: anxiety/sleep) oxycodone-acetaminophen 7.5-325 mg tablet 1 tab PO Q8H PRN (Reason: severe pain) gabapentin 400 mg capsule 400 mg PO TID methotrexate sodium 2.5 mg tablet 25 mg PO QWEEK Qty: 120 1RF Rx Instructions: Split dose into 5 tabs in the morning and 5 tabs at night folic acid 1 mg tablet 1 mg PO DAILY Qty: 90 1RF benztropine 0.5 mg tablet 0.5 mg PO DAILY cetirizine 10 mg tablet 10 mg PO QAM clopidogrel 75 mg tablet 75 mg PO DAILY cyclobenzaprine 5 mg tablet 5 mg PO TID PRN diclofenac sodium 1 % gel 2 g topical QID famotidine 20 mg tablet 20 mg PO BID nicotine (polacrilex) 4 mg gum 4 mg PO DIRECTED metoprolol succinate 50 mg tablet extended release 24 hr 50 mg PO DAILY nicotine 14 mg/24 hr patch 24 hour 1 patch topical QAM Interventions: ED Discharge Assessment Last Done: 01/17/25 16:41 Discharge Date/Time: 01/17/25 16:42 Print Language: Syriac
--- OUTSIDE RECORDS SUMMARY | 2025-01-17 13:01 | XMS_ITS | Encounter Summary ---
Author Organization [facility] Address [address] [place] [address] Care Team Providers Care Accounts Receivable Administrator Name Role Phone Mackenzie Estrada MD Primary Care Provider [phone] Reason for Visit * Reason Comments Med Refill Encounter Details Date Type Department Care Team ([facility] Contact Info) Description 12/10/2022 Refill [facility] [address] [place], [place] [phone] Mackenzie Estrada MD [address] [place], [place] [phone] Pain in both hands Social History Tobacco [...] ([facility] Contact Info) Description 03/12/2025 9:45 AM EDT Office Visit [facility] [address] [place] [id number] documented as of this encounter Visit Diagnoses Diagnosis Pain in both hands documented in this encounter Care Teams Accounts Receivable Administrator Relationship Specialty Start Date End Date Mackenzie Estrada MD [address] [place] [address] PCP - General Family Medicine 07/10/20 Hemal[employer] Bench M[employer] 01/02/25 documented as of this encounter
[2025-01-17] MEDS: Acetaminophen 325 MG TABLET 975 MG PO (13:12)
[2025-01-17] MEDS: cephALEXin 500 MG CAPSULE PO (13:13)
[2025-01-17] MEDS: Doxycycline Monohydrate 100 MG CAPSULE PO (13:13)
--- NOTE | 2025-01-17 13:17 | PC.NURSE ---
patient a&ox3, c/o dizziness, vss, ekg to be performed by tech, pt lt elbow redness/pain, lle 2+ edema, pt medicated for pain and with antibiotics, call cardona within reach, plan of care ongoing
[2025-01-17 13:21] LABS: C Reactive Protein 3.16 mg/dL (< or = 0.50)
[2025-01-17 13:55] LABS: Erythrocyte Sedimentation Rate 79 MM/HR (0-20)
== END 2025-01-17 16:42 | disposition home or self-care (01) ==
PROVIDERS: Physician Assistant Medical; Emergency Provider Emergency Medicine; PCP General Practice
DX: L03.114 Cellulitis of left upper limb (principal); M25.522 Pain in left elbow; M25.572 Pain in left ankle and joints of left foot; R42 Dizziness and giddiness; R94.31 Abnormal electrocardiogram [ECG] [EKG]; I25.10 Atherosclerotic heart disease of native coronary artery without angina pectoris; Z86.718 Personal history of other venous thrombosis and embolism; Z79.01 Long term (current) use of anticoagulants; Z79.899 Other long term (current) drug therapy
CPT/HCPCS: 36415; 73080; 73610; 73630; 80053; 83735; 85025; 85652; 86140; 93005; 93971; 99284; 99285

== ENCOUNTER → 2025-01-17 12:47 | Outpatient (BNV) | payer MEDICAID, SELFPAY | PROVIDERS: Emergency Provider Emergency Medicine; PCP General Practice; Visit Provider Radiology Diagnostic Radiology | DX: R22.42 Localized swelling, mass and lump, left lower limb (principal); M77.32 Calcaneal spur, left foot; M25.522 Pain in left elbow; M20.12 Hallux valgus (acquired), left foot | CPT/HCPCS: 73080; 73610; 73630; 93971 ==

== ENCOUNTER → 2025-01-17 13:12 | Outpatient (BNV) | payer MEDICAID, SELFPAY | PROVIDERS: Emergency Provider Emergency Medicine; PCP General Practice; Visit Provider Internal Medicine Cardiovascular Disease | DX: I44.4 Left anterior fascicular block (principal) | CPT/HCPCS: 93010 ==

== ENCOUNTER 2025-02-04 06:43 | Emergency (ER) | payer MEDICAID, SELFPAY ==
--- NOTE | ~2025-02-04 | XR_ITS ---
CLINICAL HISTORY: lt foot pain Exam: Left foot three views Comparison: CR/FL/SR - XR FOOT LT MIN 3V - 01/17/25 13:10 EDT Findings: Persistent linear density overlying distal dorsal articulation of the navicular bone is only seen on the lateral view. Hallux valgus with bony bunion, unchanged. No significant arthritic changes. Stable plantar calcaneal spur. No ankle joint effusion. No subcutaneous emphysema or radiopaque foreign body. Impression: 1. Persistent linear density overlapping distal navicular bone on the lateral view, no osseous abnormality on the frontal or oblique views at the region, probably artifactual due to projection, CT foot would be confirmatory and helpful for further evaluation if warranted. 2. Hallux valgus with bunion. This document has been electronically signed by: Edelmira Gaitan MD on 02/04/2025 09:33:57
--- NOTE | ~2025-02-04 | XR_ITS ---
CLINICAL HISTORY: lt ankle pain 3 view left ankle Comparison: CR/MN/SR - XR ANKLE LT MIN 3V - 01/17/25 13:11 EDT Findings: No acute fractures or dislocations. No significant loss of joint space, osteophytes, or erosions. No ankle effusion. No radiopaque foreign body. Small plantar calcaneal spur, unchanged. Mild diffuse soft tissue swelling. IMPRESSION: No acute osseous finding. Mild diffuse soft tissue swelling. This document has been electronically signed by: Edelmira Gaitan MD on 02/04/2025 09:26:17
[2025-02-04 07:14] VITALS: BP 109/69; PULSE 78; RESP 18; TEMP 36.9; O2SAT 97
[2025-02-04 07:16] VITALS: BMI 29.9
--- NOTE | 2025-02-04 07:33 | PC.NURSE ---
patient a&ox3, c/o lt foot/ankle pain, 05/10, no injury. pt awaiting provider evaluation and xr
--- OUTSIDE RECORDS SUMMARY | 2025-02-04 07:56 | XMS_ITS | Clinical Summary ---
Author Organization [facility] Address [address] [place] [address] Care Team Providers Care Mill Manager Name Role Phone Sanjay Cruz MD Primary Care 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 0 DX: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 Acute deep vein thrombosis ( DVT) of brachial vein of right upper extremity ([facility] V24, [facility] V28) 05/09/2020 DX:Acute deep vein thrombos is (DVT) of brachial vein of right upper extremity (HCC) Axillary lymphadenopathy 05/09/2020 DX:Axil harvinder lymphadenopathy Gastroesophageal reflux disease 05/09/2020 DX:Gastroesophageal reflux disease Personal history of Hodgkin lymphoma 05/09/2020 DX:Personal history of Hodgkin lymphoma Recurrent major depressive d isorder in remission ([facility] V24) 05/09/2020 DX:Recurrent major depressiv e disorder in remission (HCC) Rheumatoid arthritis involvi ng multiple sites (CMS/[facility] V24, [facility] V28) 05/09/2020 DX:Rheumatoid arthritis invo lving multiple sites (HCC) Hodgkin's disease, nodular s clerosis, of lymph nodes of multiple sites (CMS/[facility] V24, [facility] V28) DX:Hodgkin's disease, nodul ar sclerosis, of [...] (2023-2 5 season) 2024 Influenza Vaccine (#1) 2025 HIB Vaccines Aged Out No longer [...] age to complete this topic Care Teams Mill Manager Relationship Specialty Start Date End Date Sanjay Cruz MD [address] [place] [id number] PCP - General Internal Medicine 04/09/20
--- OUTSIDE RECORDS SUMMARY | 2025-02-04 07:56 | XMS_ITS | Clinical Summary ---
Author Organization [facility] Address [address] [place] [address] Support Name Relationship Address Phone Brayden Hernandez Emergency Contact [address] [place] [id number] Care Team Providers Care Cook Cold Meat Name Role Phone Abdullahi Lizarraga MD Primary Care Provider [phone] Allergies Active Allergy Reactions Criticality Noted Date [...] 68 12/05/2020 11:19 AM EDT Temperature 36.7 C (98.1 F) 12/05/2020 11:19 AM EDT Respiratory Rate - - Oxygen Saturation 100% [...] Cancer Screening (Colonoscopy) 2021 Influenza Vaccine (#1) 2025 RSV Ped < 20 months Aged Out No longe r eligible based on patient's age to complete this topic Care Teams Cook Cold Meat Relationship Specialty Start Date End Date Abdullahi Lizarraga MD [address] [place] [address] PCP - General Nephrology 03/10/18
--- NOTE | 2025-02-04 08:12 | ED.GENADULT ---
HPI - General Adult General Chief complaint: Extremity Injury, Lower Stated complaint: left foot pain Time Seen by Provider: 02/04/25 07:52 Source: patient Mode of arrival: ambulatory Limitations: no limitations History of Present Illness HPI narrative: This is 49 years old patient with chronic pain syndrome, history of seropositive rheumatoid arthritis, ischemic cardiomyopathy anticoagulated with apixaban presented to emergency department complaining of left foot pain left ankle pain since 13:00 yesterday no trauma. Denies also any fever chills Onset (ago): day(s) (1) Location: lower extremity (Left foot) Radiation: non-radiation Severity: moderate Quality: burning Pain Consistency: constant Relieving factors: none Exacerbating factors: none Associated symptoms: denies other symptoms Treatments prior to arrival: none Related Data Home Medications ?Medication ?Instructions ?Recorded ?Confirmed alprazolam 1 mg tablet 1 mg PO BEDTIME PRN Anxiety 12/10/22 10/16/24 albuterol sulfate 90 mcg/actuation 2 puff inhalation Q6H PRN Wheezing 02/20/24 10/16/24 aerosol inhaler gabapentin 400 mg capsule 400 mg PO TID 04/23/24 10/16/24 oxycodone-acetaminophen 7.5 mg-325 1 tab PO Q8H PRN severe pain 04/23/24 10/16/24 mg tablet trazodone 150 mg tablet 150 mg PO BEDTIME PRN anxiety/sleep 04/23/24 10/16/24 cholecalciferol (vitamin D3) 25 25 mcg PO DAILY 05/27/24 10/16/24 mcg (1,000 unit) capsule (Vitamin D3) cyanocobalamin (vitamin B-12) 1,000 mcg IM QMONTH 05/27/24 10/16/24 1,000 mcg/mL injection solution polyethylene glycol 3350 17 17 g PO DAILY PRN Constipation 05/27/24 10/16/24 gram/dose oral powder risperidone 1 mg tablet 0.5 mg PO DAILY PRN 05/27/24 10/16/24 anxiety/agitation/paranoia apixaban 5 mg tablet (Eliquis) 5 mg PO BID 06/12/24 10/16/24 atorvastatin 80 mg tablet 80 mg PO DAILY 06/12/24 10/16/24 ferrous sulfate 325 mg (65 mg 325 mg PO QAM 06/12/24 10/16/24 iron) tablet lidocaine-prilocaine 2.5 %-2.5 % 1 appl topical Q8-12H PRN moderate 06/12/24 10/16/24 topical cream pain nicotine 7 mg/24 hr daily 1 patch transdermal Q24H 06/12/24 10/16/24 transdermal patch sertraline 50 mg tablet (Zoloft) 75 mg PO DAILY 06/12/24 10/16/24 umeclidinium 62.5 mcg/actuation 1 inh inhalation DAILY 06/12/24 10/16/24 blister powder for inhalation (Incruse Ellipta) ursodiol 250 mg tablet 250 mg PO BID 06/12/24 10/16/24 benztropine 0.5 mg tablet 0.5 mg PO DAILY 08/27/24 10/16/24 cetirizine 10 mg tablet 10 mg PO QAM neuropathic pain 08/27/24 10/16/24 clopidogrel 75 mg tablet 75 mg PO DAILY 08/27/24 10/16/24 cyclobenzaprine 5 mg tablet 5 mg PO TID PRN 08/27/24 10/16/24 diclofenac sodium 1 % topical gel 2 g topical QID 08/27/24 10/16/24 famotidine 20 mg tablet 20 mg PO BID 08/27/24 10/16/24 metoprolol succinate 50 mg 50 mg PO DAILY 08/27/24 10/16/24 tablet,extended release 24 hr nicotine (polacrilex) 4 mg gum 4 mg PO DIRECTED 08/27/24 10/16/24 nicotine 14 mg/24 hr daily 1 patch topical QAM 08/27/24 10/16/24 transdermal patch Previous Rx's ?Medication ?Instructions ?Recorded ascorbic acid (vitamin C) 500 mg 1,000 mg (2 x 500 mg) PO QAM #180 05/28/24 tablet (Vitamin C) tabs doxycycline hyclate 100 mg tablet 100 mg PO BID 7 days #14 tabs 06/13/24 prednisone 20 mg tablet 40 mg (2 x 20 mg) PO DAILY #10 tabs 07/08/24 acetaminophen 500 mg tablet 500 mg PO QID PRN pain #30 tabs 07/27/24 (Tylenol Extra Strength) lidocaine 5 % topical patch 1 patch topical DAILY #30 ea 07/27/24 (Lidoderm) folic acid 1 mg tablet 1 mg PO DAILY #90 tabs 10/16/24 methotrexate sodium 2.5 mg tablet 25 mg (10 x 2.5 mg) PO QWEEK #120 10/16/24 tabs cyclobenzaprine 10 mg tablet 10 mg PO TID PRN muscle spasm #20 11/25/24 tabs dexamethasone 4 mg tablet 4 mg PO BID #6 tabs 11/25/24 vitamin A 3,000 mcg (10,000 unit) 1 cap PO QAM #90 caps 11/29/24 capsule docusate sodium 100 mg capsule 100 mg PO BID #60 caps 12/04/24 (Stool Softener) acetaminophen 500 mg tablet 1,000 mg (2 x 500 mg) PO Q8H PRN 01/17/25 (Tylenol Extra Strength) pain #30 tabs cephalexin 500 mg capsule 500 mg PO QID 7 days #28 caps 01/17/25 doxycycline hyclate 100 mg tablet 100 mg PO BID 7 days #14 tabs 01/17/25 pantoprazole 40 mg tablet,delayed 40 mg PO DAILY #90 tabs 01/30/25 release Allergies Allergy/AdvReac Type Severity Reaction Status Date / Time almond (ALMONDS) Allergy Severe ANAPHYLAXIS Verified 02/04/25 07:19 adhesive tape (ADHESIVE TAPE) Allergy Intermediate RASH Verified 02/04/25 07:19 morphine (MORPHINE) Allergy Intermediate GI UPSET, Verified 02/04/25 07:19 difficulty breathing leflunomide AdvReac Intermediate twitching Verified 02/04/25 07:19 tramadol (TRAMADOL) AdvReac Unknown NAUSEA & Verified 02/04/25 07:19 VOMITING Review of Systems Constitutional: Constitutional: Reports no additional constitutional complaints Cardiovascular: Cardiovascular: Reports no additional cardiovascular complaints [facility] Past Medical History Attestation statement: The following information was validated with the patient. [facility] Narrative: History reviewed chronic pain syndrome/rheumatoid arthritis/coronary artery disease/cardiomyopathy anticoagulated with a apixaban Source: unable to obtain Medical History PAD (peripheral artery disease) Skin lesion Anxiety Achilles tendinitis Superficial femoral artery occlusion Knee pain, left Depression Hx of peripheral pulmonary artery stenosis History of chemotherapy Cancer of heart Bone cancer Lung cancer Iron deficiency Seropositive rheumatoid arthritis Bleeding hemorrhoid Degeneration, intervertebral disc, lumbar Chronic GERD Degeneration of intervertebral disc at C4-C5 level Osteoarthritis of spine with radiculopathy, lumbar region Fibromyalgia Esophageal dysphagia Vitamin D deficiency Systemic lupus erythematosus Seropositive rheumatoid arthritis Rheumatoid arthritis involving multiple sites Gallstones Stress incontinence in female Nocturia Urgency-frequency syndrome De Quervain's disease (tenosynovitis) Depressive disorder Acute arthritis Hodgkin disease Surgical History History of heart surgery History of surgical removal of skin lesion (~07/13/23) History of angioplasty of vein History of biopsy H/O tubal ligation Hx of endoscopy Hx laparoscopic cholecystectomy Hx of colonoscopy History of esophagogastroduodenoscopy (EGD) History of repair of inguinal hernia History of lymph node dissection of left axilla Family History Family History Maternal Grandmother Ovarian cancer Social History Social History Household Members: Significant Other Housing: Apartment Are you a primary manager medicare to a significant other at home: No Unable to assess alcohol history related to: Unknown Alcohol intake: never Comment: son at bedside Patient Tobacco Use Status: Never used Tobacco Tobacco use type: Cigarette Cigarette Packs Per Day: 1 Cigarettes Per Day: 20.0 Smoked in Last 30 Days: No Use of substances other than those prescribed or required for medical reasons: Yes Substance Use Type: Marijuana Substance Use Frequency: Occasionally Advance Directives: Yes Advance Directives on File: Yes Advance Directives Date on File: 02/24/24 Do you have a plan to hurt others: No Plan Patient : No service: No Current occupational status: disabled 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 Physical Exam ED Vital Signs: Vital Signs - 24 hr 02/04/25 07:14 02/04/25 11:00 Temperature 98.5 F 98.5 F Pulse Rate 78 70 Respiratory Rate 18 18 Blood Pressure 109/69 111/70 Pulse Oximetry 97 99 Oxygen Delivery Method Room Air Room Air BMI result Body Mass Index 29.9 Const General: cooperative Nutritional Appearance: average body habitus Orientation/consciousness: patient oriented x3 Limitations: no limitations HENMT Head: Yes normal to inspection Ears: hearing grossly normal bilaterally General nose exam: Normal external nose present Face and sinus: Yes normal facial exam Mouth: Normal oral and palatal mucosa present Neck Neck: Yes normal visual inspection Chest Chest palpation & inspection: normal inspection of the chest Resp Effort & Inspection: normal respiratory effort Auscultation: clear to auscultation bilaterally Cardio Jugular venous distension: no JVD Rate: regular rate Rhythm: regular rhythm GI Inspection: Yes normal to inspection Palpation (GI): Soft to palpation, not firm and nontender Skin General skin exam: no rashes or lesions noted Neuro General: patient oriented x3 Extrem Other: Examination of the lower extremity shows tenderness in the posterior aspect of the left foot she has a good perfusion good pulses Course Reevaluation(s) Reevaluation #1: Labs okay WBC normal, chemistry essentially normal, x-ray showed no bone abnormality there is an artifact described a linear density but no bone abnormality no fx I think she can be discharged home she can follow-up with the surgery consultant Time: 10:37 Medications Administered Discontinued Medications Generic Name Dose Route Start Last Admin Trade Name Freq PRN Reason Stop Dose Admin Oxycodone HCl 10 mg 02/04/25 08:11 02/04/25 08:48 Oxycodone Hcl Immed Release 5 Mg Tablet PO 02/04/25 08:12 10 mg ONCE ONE Administration Medical Decision Making Medical Decision Making [facility] Narrative: Patient is here complaining of left foot pain broad differential diagnosis including cellulitis unlikely DVT she is on apixaban 10:37 labs are normal including white count unlikely infection given his normal white count no fever also unlikely a DVT because she is on apixaban I do not think we need to do an ultrasound of the legs. She does have chronic pain syndrome she is followed by the surgery consultant I think she can be discharged home Differential Diagnosis Differential Diagnoses: The differential diagnosis associated with the presentation includes Arthritis/cellulitis/stress fracture Admission/Observation Consideration of admission/observation: Escalation of care including admission/observation considered Lab Data [facility] Lab Attestation statement: I reviewed the patient's lab results. 02/04/25 08:38 02/04/25 08:38 Labs: Lab Results 02/04/25 Range/Units 08:38 WBC 5.9 (4.8-10.8) X10*3/uL RBC 3.68 L (4.20-5.50) X10*6/uL Hgb 11.1 L (12.0-16.0) g/dl Hct 33.1 L (37.0-47.0) % MCV 89.9 (80.0-98.0) fL MCH 30.2 (27.0-33.0) pg MCHC 33.5 (31.0-35.0) g/dl RDW 14.8 (11.0-16.0) % Plt Count 308 D (160-400) X10*3/uL MPV 9.8 (9.4-12.3) fL Immature Gran % (Auto) 0.2 (0.0-0.4) % Neut % (Auto) 53.0 (45-73) % Lymph % (Auto) 38.8 (20-40) % [place] % (Auto) 6.5 (2-11) % Eos % (Auto) 1.2 (0-4) % Baso % (Auto) 0.3 (0-2) % Lymph # (Auto) 2.3 (1.2-4.9) X10*3/uL [place] # (Auto) 0.4 (0.1-1.2) X10*3/uL Eos # (Auto) 0.1 (0.0-0.4) X10*3/uL Baso # (Auto) 0.0 (0.0-0.2) X10*3/uL Abs Immat Gran (auto) 0.01 (0.00-0.03) X10*3/uL Absolute Neuts (auto) 3.1 (2.0-8.3) x10*3/uL Absolute Nucleated RBC 0.000 (0.0-0.012) X10*3/uL Nucleated RBC % (auto) 0.0 (0.0-0.2) /100WBC ESR 94 H (0-20) MM/HR Sodium 138 (135-145) mmol/L Potassium 3.8 (3.3-5.1) mmol/L Chloride 106 (96-108) mmol/L Carbon Dioxide 25 (22-29) mmol/L Anion Gap 11 L (12-20) BUN 10 (9-16) mg/dL Creatinine 0.56 (0.5-1.4) mg/dL Estim Creat Clear Calc 134.1 Estimated GFR > 60 Random Glucose 112 (60-115) mg/dL Calcium 9.2 (8.4-10.2) mg/dL Total Bilirubin 0.3 (0.0-1.0) mg/dL AST 16 (5-31) U/L ALT 9 (0-31) U/L Alkaline Phosphatase 80 (39-117) U/L Total Protein 8.3 H (6.5-8.0) g/dL Albumin 3.9 (3.5-5.0) g/dL Independent Interpretation I performed an independent interpretation of an: Plain X-Ray Interpretation: No fracture no dislocation External Record Review External record reviewed: Inpatient record Prescription Management I considered prescription management with: Pain Medication Chronic Conditions Chronic pain syndrome/fibromyalgia Discharge Plan Discharge Clinical Impression: Acute foot pain Qualifiers: Laterality: left Qualified Code(s): M79.672 - Pain in left foot Patient Disposition: Home, Self-Care Instructions: Arthralgia (ED) Additional Instructions: Please follow-up with your surgery consultant call today and make an appointment return if worse Prescriptions: No Action ascorbic acid (vitamin C) [Vitamin C] 500 mg tablet 1,000 mg PO QAM Qty: 180 2RF vitamin A 3,000 mcg (10,000 unit) capsule 1 cap PO QAM Qty: 90 1RF docusate sodium [Stool Softener] 100 mg capsule 100 mg PO BID Qty: 60 3RF pantoprazole 40 mg tablet,delayed release (DR/EC) 40 mg PO DAILY Qty: 90 1RF atorvastatin 80 mg tablet 80 mg PO DAILY lidocaine-prilocaine 2.5-2.5 % cream 1 appl topical Q8-12H PRN (Reason: moderate pain) ferrous sulfate 325 mg (65 mg iron) tablet 325 mg PO QAM ursodiol 250 mg tablet 250 mg PO BID sertraline [Zoloft] 50 mg tablet 75 mg PO DAILY Eliquis 5 mg tablet 5 mg PO BID Incruse Ellipta 62.5 mcg/actuation blister with device 1 inh INHALATION DAILY nicotine 7 mg/24 hr Patch 24 Hour 1 patch TRANSDERMAL Q24H doxycycline hyclate 100 mg tablet 100 mg PO BID 7 Days Qty: 14 0RF prednisone 20 mg tablet 40 mg PO DAILY Qty: 10 0RF cephalexin 500 mg capsule 500 mg PO QID 7 Days Qty: 28 0RF doxycycline hyclate 100 mg tablet 100 mg PO BID 7 Days Qty: 14 0RF acetaminophen [Tylenol Extra Strength] 500 mg tablet 1,000 mg PO Q8H PRN (Reason: pain) Qty: 30 0RF albuterol sulfate 90 mcg/actuation Hfa Aerosol Inhaler 2 puff INHALATION Q6H PRN (Reason: Wheezing) polyethylene glycol 3350 17 gram/dose powder 17 g PO DAILY PRN (Reason: Constipation) risperidone 1 mg tablet 0.5 mg PO DAILY PRN (Reason: anxiety/agitation/paranoia) cholecalciferol (vitamin D3) [Vitamin D3] 25 mcg (1,000 unit) capsule 25 mcg PO DAILY cyanocobalamin (vitamin B-12) 1,000 mcg/mL Solution 1,000 mcg IM QMONTH acetaminophen [Tylenol Extra Strength] 500 mg tablet 500 mg PO QID PRN (Reason: pain) Qty: 30 0RF lidocaine [Lidoderm] 5 % adhesive patch,medicated 1 patch topical DAILY Qty: 30 0RF Rx Instructions: leave on most painful area for up to 12 hrs dexamethasone 4 mg tablet 4 mg PO BID Qty: 6 0RF cyclobenzaprine 10 mg tablet 10 mg PO TID PRN (Reason: muscle spasm) Qty: 20 0RF alprazolam 1 mg tablet 1 mg PO BEDTIME PRN (Reason: Anxiety) trazodone 150 mg tablet 150 mg PO BEDTIME PRN (Reason: anxiety/sleep) oxycodone-acetaminophen 7.5-325 mg tablet 1 tab PO Q8H PRN (Reason: severe pain) gabapentin 400 mg capsule 400 mg PO TID methotrexate sodium 2.5 mg tablet 25 mg PO QWEEK Qty: 120 1RF Rx Instructions: Split dose into 5 tabs in the morning and 5 tabs at night folic acid 1 mg tablet 1 mg PO DAILY Qty: 90 1RF benztropine 0.5 mg tablet 0.5 mg PO DAILY cetirizine 10 mg tablet 10 mg PO QAM clopidogrel 75 mg tablet 75 mg PO DAILY cyclobenzaprine 5 mg tablet 5 mg PO TID PRN diclofenac sodium 1 % gel 2 g topical QID famotidine 20 mg tablet 20 mg PO BID nicotine (polacrilex) 4 mg gum 4 mg PO DIRECTED metoprolol succinate 50 mg tablet extended release 24 hr 50 mg PO DAILY nicotine 14 mg/24 hr patch 24 hour 1 patch topical QAM Referrals: Mackenzie Estrada MD [Primary Care Provider, Internal Medicine] - 02/05/25 Interventions: ED Discharge Assessment Last Done: 02/04/25 11:00 Discharge Date/Time: 02/04/25 11:01 Print Language: Beninese
[2025-02-04 08:42] LABS: MANUAL DIFF FLAG NO
[2025-02-04 08:43] LABS: Hematocrit 33.1 % (37.0-47.0); Hemoglobin 11.1 g/dl (12.0-16.0); Imm Gran Abs Auto 0.01 X10*3/uL (0.00-0.03); Imm Gran Pct Auto 0.2 % (0.0-0.4); Lymphocytes Absolute Auto 2.3 X10*3/uL (1.2-4.9); Mean Corpuscular HGB Conc 33.5 g/dl (31.0-35.0); Mean Corpuscular Hemoglobin 30.2 pg (27.0-33.0); Mean Corpuscular Volume 89.9 fL (80.0-98.0); NRBC Abs Auto 0.000 X10*3/uL (0.0-0.012); NRBC Pct Auto 0.0 /100WBC (0.0-0.2); Platelet Count 308 X10*3/uL (160-400); Red Blood Count 3.68 X10*6/uL (4.20-5.50); White Blood Count 5.9 X10*3/uL (4.8-10.8)
[2025-02-04] MEDS: oxyCODONE HCl Immed Release 5 MG TABLET 10 MG PO (08:48)
[2025-02-04 08:59] LABS: Alanine Aminotransferase 9 U/L (0-31); Albumin Level 3.9 g/dL (3.5-5.0); Alkaline Phosphatase 80 U/L (39-117); Anion Gap 11 (12-20); Aspartate Amino Transferase 16 U/L (5-31); Blood Urea Nitrogen 10 mg/dL (9-16); Calcium 9.2 mg/dL (8.4-10.2); Carbon Dioxide 25 mmol/L (22-29); Chloride 106 mmol/L (96-108); Creatinine Clr Calc Pharmacy 134.1; Estimated Glomerular Filt Rate > 60; Potassium 3.8 mmol/L (3.3-5.1); Sodium 138 mmol/L (135-145); Total Protein 8.3 g/dL (6.5-8.0)
[2025-02-04 11:00] VITALS: BP 111/70; PULSE 70; RESP 18; TEMP 36.9; O2SAT 99
== END 2025-02-04 11:01 | disposition home or self-care (01) ==
PROVIDERS: Emergency Provider Emergency Medicine; PCP General Practice
DX: M79.672 Pain in left foot (principal); M25.572 Pain in left ankle and joints of left foot; F17.210 Nicotine dependence, cigarettes, uncomplicated; Z79.899 Other long term (current) drug therapy
CPT/HCPCS: 36415; 73610; 73630; 80053; 85025; 85652; 99283; 99284

== ENCOUNTER → 2025-02-04 06:48 | Outpatient (BNV) | payer MEDICAID, SELFPAY | PROVIDERS: Emergency Provider Emergency Medicine; PCP General Practice; Visit Provider Radiology Diagnostic Radiology | DX: M25.572 Pain in left ankle and joints of left foot (principal); M85.872 Other specified disorders of bone density and structure, left ankle and foot; M20.12 Hallux valgus (acquired), left foot | CPT/HCPCS: 73610; 73630 ==

== ENCOUNTER 2025-02-06 09:09 | Outpatient (AMB) | payer MEDICAID, SELFPAY ==
--- OUTSIDE RECORDS SUMMARY | 2025-02-06 09:24 | XMS_ITS | Clinical Summary ---
Author Organization [facility] Address [address] [place] [address] Support Name Relationship Address Phone Brayden Hernandez Emergency Contact [address] [place] [address] Care Team Providers Care Apartment Leasing Manager Name Role Phone Abdullahi Lizarraga MD Primary Care Provider [phone] Allergies Active Allergy Reactions Criticality Noted Date [...] age to complete this topic Care Teams Apartment Leasing Manager Relationship Specialty Start Date End Date Abdullahi Lizarraga MD [address] [place] [address] PCP - General Nephrology 03/10/18
--- OUTSIDE RECORDS SUMMARY | 2025-02-06 09:24 | XMS_ITS | Clinical Summary ---
[facility] Organization [facility] Address [address] [place] [address] Care Team Providers Care Roving Changer Name Role Phone Sanjay Cruz MD Primary Care [facility] Surgical History Surgery Date Site/Laterality Comments OTHER SURGICAL HISTORY 05/12/2020 Right PROCEDURE: MO BX/EXC LYMPH NODE OPEN SUPERFICIAL; COMMENT: Axillary Lymph Node biopsy- Benign Lymphoid Tissue OTHER SURGICAL HISTORY 12/19/2019 Right PROCEDURE: MO BX/EXC LYMPH NODE NEEDLE SUPERFICIAL; COMMENT: Axillary Lymph node -results were non daignostic Medical History Medical History Date Comments Anxiety DX:Anxiety Migraine DX:Migraine History of DVT (deep vein thrombosis) 05/23/2020 DX:History of DVT (deep vein thrombosis); COMMENT: 01/2005 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 0 DX:exterminator termite current use of anticoagulant Acute deep vein thrombosis ( DVT) of brachial vein of right upper extremity ([facility] V24, [facility] V28) 05/09/2020 DX:Acute deep vein thrombos is (DVT) of brachial vein of right upper extremity (HCC) Axillary lymphadenopathy 05/09/2020 DX:Axil harvinder lymphadenopathy Gastroesophageal reflux disease 05/09/2020 DX:Gastroesophageal reflux disease Personal history of Hodgkin lymphoma 05/09/2020 DX:Personal history of Hodgkin lymphoma Recurrent major depressive d isorder in remission ([facility] V24) 05/09/2020 DX:Recurrent major depressiv e disorder in remission (HCC) Rheumatoid arthritis involvi ng multiple sites (CMS/[facility] V24, [facility] V28) 05/09/2020 DX:Rheumatoid arthritis invo lving multiple sites (HCC) Hodgkin's disease, nodular s clerosis, of lymph nodes of multiple sites (CMS/[facility] V24, [facility]/HCC V28) DX:Hodgkin's disease, nodul ar sclerosis, of [...] 5 Years) and At-Risk Patients (6 to 49 Years) Aged Out No longer eligible b ased on patient's age to complete this topic RSV Immunization Patients Un kacy 20 months Aged Out No longer eligible b ased on patient's age to complete this topic Varicella Vaccines Aged Out No longer eligible based on patient's age to complete this topic Care Teams Roving Changer Relationship Specialty Start Date End Date Sanjay Cruz MD [address] [place] [id number] PCP - General Internal Medicine 04/09/20
--- OUTSIDE RECORDS SUMMARY | 2025-02-06 09:24 | XMS_ITS | Encounter Summary ---
Author Organization [employer] Address [address] [facility] [address] [place] [address] Care Team Providers Care Sumatra Opener Name Role Phone Mackenzie Estrada MD Primary Care Provider [phone] Casper Magaña RN Unavailable [phone] Reason for Visit * Reason Comments Med Refill Encounter Details Date Type Department Care Team ([facility] Contact Info) Description 12/10/2022 Refill [facility] [address] [place] [phone] Mackenzie Estrada MD [address] [place] [address] [phone] Pain in both hands Social History Tobacco [...] [facility] Contact Info) Description 03/12/2025 9:45 AM EDT Office Visit [facility] [address] [place] [phone] documented as of this encounter Visit Diagnoses Diagnosis Pain in both hands documented in this encounter Care Teams Sumatra Opener Relationship Specialty Start Date End Date Mackenzie Estrada MD [address] [place] [address] PCP - General Family Medicine 07/10/20 Casper Magaña RN [address] [place] [address] Registered Nurse Family Medicine 01/18/25 01/18/25 Hemalatha Pretty Hide BufferAssistant Coach 01/02/25 documented as of this encounter
--- NOTE | 2025-02-06 09:25 | MHC.OFFVIS ---
Vital Signs 02/06/25 09:37 Height 5 ft 6 in Weight 178 lb 12.718 oz BMI 28.9 BP 124/82 Blood Pressure Location Rt brachial Position Sitting Pulse 66 Pulse Source Pulse Oximeter Pulse Oximetry (%) 96 Oxygen Delivery Method Room Air Intake Visit Reasons: RA Intake Note: Patient presents for RA follow up. Patient c/o of LT leg pain and having trouble WBAT. Patient also c/o neck pain and stiffness. Inspector Penetrant Required: Yes Inspector Penetrant Language: Chartered Accountant Services: Inspector Penetrant Present Inspector Penetrant Name: [id number] Information Interpreted: non-clinical & clinical Allergies almond (ALMONDS) Allergy (Severe, Verified 02/06/25 09:37) ANAPHYLAXIS adhesive tape (ADHESIVE TAPE) Allergy (Intermediate, Verified 02/06/25 09:37) RASH morphine (MORPHINE) Allergy (Intermediate, Verified 02/06/25 09:37) GI UPSET, difficulty breathing leflunomide Adverse Reaction (Intermediate, Verified 02/06/25 09:37) twitching tramadol (TRAMADOL) Adverse Reaction (Unknown, Verified 02/06/25 09:37) NAUSEA & VOMITING Medication List - Last Reconciled 02/06/25 by Bridget Corley MD acetaminophen (Tylenol Extra Strength) 1,000 mg (2 x 500 mg) PO Q8H PRN albuterol sulfate 90 mcg/actuation 2 puffs inhalation Q6H PRN alprazolam 1 mg PO BEDTIME PRN apixaban (Eliquis) 5 mg PO BID ascorbic acid (vitamin C) (Vitamin C) 1,000 mg (2 x 500 mg) PO QAM atorvastatin 80 mg PO DAILY benztropine 0.5 mg PO DAILY cephalexin 500 mg PO QID 7 days cetirizine 10 mg PO QAM cholecalciferol (vitamin D3) (Vitamin D3) 25 mcg PO DAILY clopidogrel 75 mg PO DAILY cyanocobalamin (vitamin B-12) 1,000 mcg IM QMONTH cyclobenzaprine 10 mg PO TID PRN cyclobenzaprine 5 mg PO TID PRN dexamethasone 4 mg PO BID diclofenac sodium 1% 2 grams topical QID docusate sodium (Stool Softener) 100 mg PO BID doxycycline hyclate 100 mg PO BID 7 days doxycycline hyclate 100 mg PO BID 7 days famotidine 20 mg PO BID ferrous sulfate 325 mg PO QAM folic acid 1 mg PO DAILY gabapentin 400 mg PO TID lidocaine 5% (Lidoderm) 1 patch topical DAILY lidocaine-prilocaine 2.5-2.5 % 1 appl topical Q8-12H PRN methotrexate sodium 25 mg (10 x 2.5 mg) PO QWEEK metoprolol succinate ER 50 mg PO DAILY nicotine 1 patch transdermal Q24H nicotine 1 patch topical QAM nicotine (polacrilex) 4 mg PO DIRECTED oxycodone-acetaminophen 7.5-325 mg 1 tab PO Q8H PRN pantoprazole 40 mg PO DAILY polyethylene glycol 3350 17 grams PO DAILY PRN prednisone 40 mg (2 x 20 mg) PO DAILY risperidone 0.5 mg PO DAILY PRN sertraline (Zoloft) 75 mg PO DAILY trazodone 150 mg PO BEDTIME PRN umeclidinium 62.5 mcg/actuation (Incruse Ellipta) 1 inh inhalation DAILY ursodiol 250 mg PO BID vitamin A 1 cap PO QAM HPI Comments Details: Patient is a 49-year-old female with hypertension complicated by NSTEMI status post stenting with ischemic cardiomyopathy, hyperlipidemia complicated by peripheral arterial disease, unprovoked DVT on Eliquis, seropositive nodular rheumatoid arthritis complicated by left femur avascular necrosis secondary to prednisone use and fibromyalgia Interval History: Patient last seen 10/16/24 with me. - joint pain and swelling involving her bilateral hands, wrists and knees. Making it difficult to do her ADLs. She was very tearful during the examination. - Orencia discontinued and started on Actemra infusions Today - Received 2 cycles of actemra (11/15, 12/13) - Had an elbow infection 01/17 and did not receive her 3rd cycle - states she feels better on this treatment but having worsening joint pain since stopping the medication for the infection Rheumatologic History: Seropositive nodular RA RF++CCP++ On prednisone throughout until it was discontinued 10/2023 due to left femur avascular necrosis methotrexate and hydroxychloroquine ?2019 Xeljanz 05/2020-08/2020(ineffective) 2020 methotrexate and Humira (HCQ stopped - ?vision changes). 06/2022 Humira stopped due to poor repsonse 06/2022 methotrexate and Actemra 12/2022: Actemra SC stopped by the patient. She had some leg swelling as well. 03/10/2023 and 03/24/23: 1 g on each day rituximab administered. Had SOB associated with administration Olumiant 08/2023 effective. Stopped because she has history of DVT Leflunomide added 01/2024 ineffective and caused twitching Orencia infusions 05/2024 - 09/2024. secondary non response Actemra 10/2024 SLE January 2022: ++DsDNA positive. Rheumatoid factor and CCP antibody markedly positive. This looks more like picture of seropositive RA. Current Rheumatology Medication(s): Actemra 8mg/kg every 4 weeks Methotrexate 25 mg p.o. weekly Folic acid 1 mg daily [facility] Medical History PAD (peripheral artery disease) Skin lesion Anxiety Achilles tendinitis Superficial femoral artery occlusion Knee pain, left Depression Hx of peripheral pulmonary artery stenosis History of chemotherapy Cancer of heart Bone cancer Lung cancer Iron deficiency Seropositive rheumatoid arthritis Bleeding hemorrhoid Degeneration, intervertebral disc, lumbar Chronic GERD Degeneration of intervertebral disc at C4-C5 level Osteoarthritis of spine with radiculopathy, lumbar region Fibromyalgia Esophageal dysphagia Vitamin D deficiency Systemic lupus erythematosus Seropositive rheumatoid arthritis Rheumatoid arthritis involving multiple sites Gallstones Stress incontinence in female Nocturia Urgency-frequency syndrome De Quervain's disease (tenosynovitis) Depressive disorder Acute arthritis Hodgkin disease Surgical History History of heart surgery History of surgical removal of skin lesion (~07/13/23) History of angioplasty of vein History of biopsy H/O tubal ligation Hx of endoscopy Hx laparoscopic cholecystectomy Hx of colonoscopy History of esophagogastroduodenoscopy (EGD) History of repair of inguinal hernia History of lymph node dissection of left axilla Family History Maternal Grandmother Ovarian cancer Social History Household Members: Significant Other Housing: Apartment Are you a primary interior plant caretaker to a significant other at home: No Unable to assess alcohol history related to: Unknown Alcohol intake: never Comment: son at bedside Patient Tobacco Use Status: Never used Tobacco Tobacco use type: Cigarette Cigarette Packs Per Day: 1 Cigarettes Per Day: 20.0 Substance Use Type: Marijuana Advance Directives Date on File: 02/24/24 service: No Current occupational status: disabled 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 of Systems Const Details: Review of Systems Constitutional: Denies fever, chills, weight loss ENT: Denies vision changes, eye pain or eye redness, dental caries, dry mouth GI: Denies nausea, vomiting, diarrhea, abdominal pain, change in BM Pulm: Denies SOB, VALENTIN, hemoptysis, wheezing Cards: Denies chest pain, palpitations Skin: Denies Raynaud's, rash, nail changes, photosensitivity, FAST BRIM POUNCER: Denies headaches, weakness, paresthesias, recurrent falls MSK: as per HPI All other systems reviewed and are unremarkable except noted above Physical Exam Vital Signs: Last Vital Signs Pulse 66 02/06/25 09:37 BP 124/82 02/06/25 09:37 Pulse Ox 96 02/06/25 09:37 Oxygen Delivery Method Room Air 02/06/25 09:37 BMI result Body Mass Index 28.9 Vital signs reviewed Physical Examination CONSTITUITIONAL Patient alert and cooperative. Unable to get up on the examination table and so she was examined in the chair. HEENT Conjunctiva and sclera clear. ?Pupils equal round and reactive to light. ?No lymphadenopathy. ? CHEST/RESPIRATORY SYSTEM Normal respiratory effort and able to speak in complete sentences. ?Clear to auscultation bilaterally. ?No crackles, rales, rhonchi, wheezes heard. CARDIAC SYSTEM Regular rate and rhythm. ?S1 and S2 heard no murmurs. ?Radial pulses intact bilaterally MSK Hands: ?Unable to make a fist. Swelling involving the MCPs, PIPs and DIPs. Decreased inflamamtion with only TTP of 2-3 joints in the bilateral hands Wrists: ?Decreased range of motion to bilateral wrists secondary to pain. Exquisite tenderness to even light touch of the wrist joint bilaterally with swelling and warmth to touch. Elbows: Full range of motion. 3 cm masses bilaterally. Warm to touch. No drainage. Shoulders: Decreased range of motion bilaterally Hips: Not examined as she was in the chair. Knees: ?Full range of motion. ?Bilateral tenderness to palpation Ankles: Full range of motion. Tenderness to palpation bilaterally Feet: ?Positive squeeze test bilaterally. With significant swelling to her feet with TTP of the feet Tender points:?No tenderness to palpation of the bilateral trapezius, supraspinatus, greater trochanters, anterior costochondral junctions, bilateral gluteal areas, bilateral suboccipital muscle insertions SKIN Skin intact without rashes. Results Reviewed Results Reviewed: Laboratory Tests 01/17/25 02/04/25 11:17 08:38 WBC 5.9 RBC 3.68 L Hgb 11.1 L Hct 33.1 L Plt Count 308 D ESR 79 H 94 H Sodium 138 Potassium 3.8 Chloride 106 Carbon Dioxide 25 BUN 10 Creatinine 0.56 AST 16 ALT 9 Alkaline Phosphatase 80 C-Reactive Protein 3.16 H Immunology labs 11/07/23 02/14/24 04/11/24 12:03 11:00 10:26 Rheumatoid Factor 482.4 H 525.0 H Cycl Citrul Peptide IgG >250 H Anti-ds DNA Titer (Crith) 1:320 H Anti-ds DNA (Crithidia) Positive A Complement C3 123 Complement C4 24 Infectious serologies 11/07/23 11/17/23 04/11/24 12:03 08:56 10:26 Hepatitis A IgM Ab Nonreactive Hep Bs Antigen Negative Hep Bs Antibody NONREACTIVE Hep B Core Total Ab Nonreactive Hepatitis C Ab (EIA) Nonreactive Nonreactive HIV 1&2 Ab/P24 Ag 4thGn Nonreactive TB Test (T-Spot) Com Negative Assessment & Plan Assessment & Plan (1) Seropositive rheumatoid arthritis: Comment: RF++CCP++ On prednisone throughout until it was discontinued 10/2023 due to left femur avascular necrosis methotrexate and hydroxychloroquine ?2019 Xeljanz 05/2020-08/2020(ineffective) 2020 methotrexate and Humira(HCQ stopped - ?vision changes). 06/2022 Humira stopped due to poor repsonse 06/2022 methotrexate and Actemra 12/2022: Actemra SC stopped by the patient. She had some leg swelling as well. 03/10/2023 and 03/24/23: 1 g on each day rituximab administered Olumiant 08/2023 effective Leflunomide added 01/2024 ineffective and caused twitching Orencia infusions 05/2024 - 09/2024. Ineffective with breakthrough synovitis Actemra infusions 09/2024 Code(s): M05.9 - Rheumatoid arthritis with rheumatoid factor, unspecified Category: Medical Plan: #Seropositive RA Patient is a 49-year-old female with seropositive rheumatoid arthritis. Her medication was changed from Orencia to Actemra of the last visit and patient notes that she has had improvement. Her exam today is due with synovitis but it is improved compared to the last visit. Unfortunately due to her elbow infection she has been off her infusions for over a month. We will continue the Actemra for now. But given her significant foot swelling and synovitis I will give her a short course of prednisone. Patient is aware of the risks associated with this. Plan - Actemra infusions. 8mg/kg every 4 weeks - Continue methotrexate 25mg every week split dosing - Folic acid 1 mg every day - Prednisone 15mg x 7 days then 10mg x 7 days then 5mg x 7 days - RTC 3 months - Labs before visit: CBC, CMP, ESR, CRP, lipid panel (2) Mass of both elbows: Code(s): R22.33 - Localized swelling, mass and lump, upper limb, bilateral Plan: #Mass of both elbows Patient with bilateral masses on elbows. Differentials include rheumatoid nodules, gouty tophus, calcium deposits, inflamed bursa. Currently on antibiotics for infection. Will resume investigation of these masses after completion of antibiotic course (3) Encounter for monitoring tocilizumab therapy: Code(s): Z51.81 - Encounter for therapeutic drug level monitoring; Z79.620 - half-way (current) use of immunosuppressive biologic Plan: #Long-term Use of Tocilizumab Discussed the risks and benefits of tocilizumab with the management of this patient's rheumatic condition. ? Benefits include decreased pain, improved mortality, improved quality of life Risks include LFT abnormalities, elevated triglycerides, GI perforations Contraindicated in a patient with history of diverticulitis Monitoring: ?CBC, CMP, triglycerides Plan I spent 35 minutes reviewing the record and labs, taking a history, examining the patient, discussing the treatment plan, ordering diagnostic work up and documenting in the medical record Orders: Orders Complete Blood Count Auto Diff 3 Months M05.9 - Rheumatoid arthritis with rheumatoid factor, unspecified Comprehensive Met. Panel 3 Months M05.9 - Rheumatoid arthritis with rheumatoid factor, unspecified C Reactive Protein 3 Months M05.9 - Rheumatoid arthritis with rheumatoid factor, unspecified Erythrocyte Sedimentation Rate 3 Months M05.9 - Rheumatoid arthritis with rheumatoid factor, unspecified Lipid Panel 3 Months M05.9 - Rheumatoid arthritis with rheumatoid factor, unspecified Medications: New prednisone see taper instructions. Take 3 tablets x 1 week then 2 tablets x 1 week then 1 tablet x 1 week then stop 5 mg PO DIRECTED 42 tabs 0RF M05.9 - Rheumatoid arthritis with rheumatoid factor, unspecified Discontinued prednisone Discontinued Reason: Patient no longer taking 40 mg (2 x 20 mg) PO DAILY 10 tabs 0RF Coding Level of Care Code Est Pt Level 4 (09412) Complex EM visit Add On G2211 Diagnoses Seropositive rheumatoid arthritis M05.9 Mass of both elbows R22.33 Encounter for monitoring tocilizumab therapy Z51.81; Z79.406
[2025-02-06 09:37] VITALS: BP 124/82; PULSE 66; O2SAT 96; BMI 28.9
== END 2025-02-06 10:07 | disposition home or self-care (01) ==
PROVIDERS: PCP General Practice; Visit Provider Student in an Organized Health Care Education/Training Program
DX: M05.79 Rheumatoid arthritis with rheumatoid factor of multiple sites without organ or systems involvement (principal); R22.33 Localized swelling, mass and lump, upper limb, bilateral; Z51.81 Encounter for therapeutic drug level monitoring; Z79.620 Long term (current) use of immunosuppressive biologic
CPT/HCPCS: 99214

== ENCOUNTER → 2025-02-06 09:09 | Outpatient (BNVA) | payer MEDICAID, SELFPAY | PROVIDERS: PCP General Practice; Visit Provider Student in an Organized Health Care Education/Training Program | DX: M79.605 Pain in left leg (principal); Z51.81 Encounter for therapeutic drug level monitoring; Z79.620 Long term (current) use of immunosuppressive biologic; M54.2 Cervicalgia; R22.33 Localized swelling, mass and lump, upper limb, bilateral; M05.9 Rheumatoid arthritis with rheumatoid factor, unspecified | CPT/HCPCS: 99212 ==

== ENCOUNTER 2025-02-18 07:15 | Emergency (ER) | payer MEDICAID, SELFPAY ==
--- NOTE | ~2025-02-18 | XR_ITS ---
EXAMINATION: XR HAND, RIGHT CLINICAL INFORMATION: right fifth metatarsal swelling COMPARISON: Right hand 12/24/2023 TECHNIQUE: PA, lateral, and oblique views of the right hand. FINDINGS: There is minimal loss of PIP and DIP joint space of all digits without bony erosive changes or spurring. No fracture, dislocation seen. There is minimal soft tissue swelling around the PIP joints of second third and fourth digits. Incidental finding of an negative ulnar variance and partial calcification of TFC XR/XR hand RT min 3V IMPRESSION: Mild arthritic changes suspected along the PIP and DIP joints all digits. There is mild soft tissue swelling PIP joint second, third and fourth digits. Electronically signed by: Jamie Avelar MD 02/18/2025 09:27 AM EDT
--- NOTE | ~2025-02-18 | US_ITS ---
EXAMINATION: US TRIPLEX LOWER EXTREMITY, BILATERAL CLINICAL INFORMATION: Bilateral lower extremity pain and edema. COMPARISON: 01/17/2025, 10/26/2023, 06/28/2023. TECHNIQUE: Color-flow triplex imaging with spectral analysis and compression Doppler were performed on the bilateral lower extremities. FINDINGS: Respiratory variation, normal compression and augmented flow are noted throughout the bilateral lower extremities. The visualized common femoral vein, superficial femoral vein, profunda femoral vein, popliteal vein and midcalf peroneal and posterior tibial venous segments show no evidence of deep venous thrombosis bilaterally. There is a left popliteal fossa cyst measuring 3.0 x 1.0 x 1.5 cm, unchanged from prior. There are bilateral reactive appearing groin lymph nodes. These demonstrate large fatty trista. US/US venous duplex LE BI IMPRESSION: 1. No evidence of deep venous thrombosis involving the bilateral lower extremities. 2. Left-sided Dhillon's cyst measuring 3.0 x 1.0 x 1.5 cm, unchanged. 3. Bilateral reactive appearing groin lymph nodes. Electronically signed by: Arian Mondragon MD 02/18/2025 10:24 AM EDT
--- NOTE | ~2025-02-18 | XR_ITS ---
EXAMINATION: XR KNEE, LEFT CLINICAL INFORMATION: pain COMPARISON: None available. TECHNIQUE: Four views of the left knee. FINDINGS: No fracture or joint effusion. Alignment is anatomic. Joint spaces are maintained. No abnormal soft tissue calcification. XR/XR knee LT 3V IMPRESSION: Unremarkable left knee. Electronically signed by: Jamie Avelar MD 02/18/2025 09:23 AM EDT
--- NOTE | ~2025-02-18 | XR_ITS ---
EXAMINATION: XR KNEE, RIGHT CLINICAL INFORMATION: pain COMPARISON: None available. TECHNIQUE: Four views of the right knee. FINDINGS: No fracture or joint effusion. Alignment is anatomic. Joint spaces are maintained. No abnormal soft tissue calcification. XR/XR knee RT 3V IMPRESSION: Normal right knee. Electronically signed by: Jamie Avelar MD 02/18/2025 09:22 AM EDT
[2025-02-18 07:28] VITALS: BP 113/53; PULSE 71; RESP 20; TEMP 36.7; O2SAT 97; BMI 29.7
--- OUTSIDE RECORDS SUMMARY | 2025-02-18 07:54 | XMS_ITS | Clinical Summary ---
[facility] Address [address] [place] [address] Care Team Providers Care Staff Physical Therapy Assistant Name Role Phone Sanjay Cruz MD Primary Care [facility] Surgical History Surgery Date Site/Laterality Comments OTHER SURGICAL HISTORY 05/12/2020 Right PROCEDURE: GA BX/EXC LYMPH NODE OPEN SUPERFICIAL; COMMENT: Axillary Lymph Node biopsy- Benign Lymphoid Tissue OTHER SURGICAL HISTORY 12/19/2019 Right PROCEDURE: GA BX/EXC LYMPH NODE NEEDLE SUPERFICIAL; COMMENT: Axillary Lymph node -results were non daignostic Medical History Medical History Date Comments Anxiety DX:Anxiety Migraine DX:Migraine History of DVT (deep vein thrombosis) 05/23/2020 DX:History of DVT (deep vein thrombosis); COMMENT: 01/2005 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 0 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 Acute deep vein thrombosis ( DVT) of brachial vein of right upper extremity ([facility] V24, [facility] V28) 05/09/2020 DX:Acute deep vein thrombos is (DVT) of brachial vein of right upper extremity (HCC) Axillary lymphadenopathy 05/09/2020 DX:Axil harvinder lymphadenopathy Gastroesophageal reflux disease 05/09/2020 DX:Gastroesophageal reflux disease Personal history of Hodgkin lymphoma 05/09/2020 DX:Personal history of Hodgkin lymphoma Recurrent major depressive d isorder in remission ([facility] V24) 05/09/2020 DX:Recurrent major depressiv e disorder in remission (HCC) Rheumatoid arthritis involvi ng multiple sites ([facility] V24, [facility] V28) 05/09/2020 DX:Rheumatoid arthritis invo lving multiple sites (HCC) Hodgkin's disease, nodular s clerosis, of lymph nodes of multiple sites ([facility] V24, [facility] V28) DX:Hodgkin's disease, nodul ar sclerosis, of [...] Vaccine ( - 2023-2 5 season) 2024 Depression Screening 08/01/2024 Influenza Vaccine (#1) 2025 HIB Vaccines Aged [...] age to complete this topic Care Teams Staff Physical Therapy Assistant Relationship Specialty Start Date End Date Sanjay Cruz MD [address] [place] [phone] PCP - General Internal Medicine 04/09/20
--- OUTSIDE RECORDS SUMMARY | 2025-02-18 07:54 | XMS_ITS | Clinical Summary ---
Author Organization [facility] Address [address] [place] [address] Support Name Relationship Address Phone Brayden Hernandez Emergency Contact [address] [place] [address] Care Team Providers Care Edge Inker Heels Name Role Phone Abdullahi Lizarraga MD Primary Care Provider [phone] Allergies Active Allergy Reactions Criticality Noted Date [...] age to complete this topic Care Teams Edge Inker Heels Relationship Specialty Start Date End Date Abdullahi Lizarraga MD [address] [place] [address] PCP - General Nephrology 03/10/18
--- OUTSIDE RECORDS SUMMARY | 2025-02-18 07:54 | XMS_ITS | Encounter Summary ---
Author Organization [employer] Address [address] [facility] [address] [place] [address] Care Team Providers Care Furniture And Bedding Inspector Name Role Phone Mackenzie Estrada MD Primary Care Provider [phone] Casper Magaña RN Unavailable [phone] Reason for Visit * Reason Comments Med Refill Encounter Details Date Type Department Care Team ([facility] Contact Info) Description 12/10/2022 Refill [facility] [address] [place] [phone] Mackenzie Estrada MD [address] [place] [address] [phone] Pain in both hands Social History Tobacco [...] Upcoming Encounters Date Type Department Care Team ([facility] Contact Info) Description 03/12/2025 9:45 AM EDT Office Visit [facility] [address] [place] [phone] documented as of this encounter Visit Diagnoses Diagnosis Pain in both hands documented in this encounter Care Teams Furniture And Bedding Inspector Relationship Specialty Start Date End Date Mackenzie Estrada MD [address] [place] [address] PCP - General Family Medicine 07/10/20 Casper Magaña RN [address] [place] [address] Registered Nurse Family Medicine 01/18/25 01/18/25 Hemalatha Pretty Pile DriverPan Tank Worker 01/02/25 documented as of this encounter
--- NOTE | 2025-02-18 08:04 | ED.GENADULT ---
HPI - General Adult General Chief complaint: General Medical Stated complaint: Tingly on Both legs Time Seen by Provider: 02/18/25 08:03 Source: patient and RN notes reviewed Mode of arrival: ambulatory Limitations: language barrier History of Present Illness ED Provider: Jana Singh PA-C HPI narrative: This is a 49-year-old Guatemalan-speaking female with a past medical history of RA, CAD, fibromyalgia, HARINI, SLE, hx of hodgkin's disease, NSTEMI apixaban and clopidogrel who presents emergency department evaluation bilateral leg pain and swelling. Patient reports that while she was resting, she developed bilateral leg pain, and right hand swelling. She also reports that she has developed some dizziness. She states that she has had no recent trauma, injury. She does have a history of arthritis and lupus and occasionally gets these flare-ups. She does report some mild chest pain and shortness of breath. She has been compliant on all her medications. She does report urinary frequency, no dysuria or urinary urgency. No hematuria. No chest pain, shortness of breath, abdominal pain, nausea, vomiting or diarrhea. Dizziness occurs with positional changes. Does not feel dizzy at this moment. MD complaint: Multiple complaints Pain Consistency: constant Relieving factors: none Exacerbating factors: none Associated symptoms: denies other symptoms Treatments prior to arrival: none Related Data Home Medications ?Medication ?Instructions ?Recorded ?Confirmed alprazolam 1 mg tablet 1 mg PO BEDTIME PRN Anxiety 12/10/22 02/06/25 albuterol sulfate 90 mcg/actuation 2 puff inhalation Q6H PRN Wheezing 02/20/24 02/06/25 aerosol inhaler gabapentin 400 mg capsule 400 mg PO TID 04/23/24 02/06/25 oxycodone-acetaminophen 7.5 mg-325 1 tab PO Q8H PRN severe pain 04/23/24 02/06/25 mg tablet trazodone 150 mg tablet 150 mg PO BEDTIME PRN anxiety/sleep 04/23/24 02/06/25 cholecalciferol (vitamin D3) 25 25 mcg PO DAILY 05/27/24 02/06/25 mcg (1,000 unit) capsule (Vitamin D3) cyanocobalamin (vitamin B-12) 1,000 mcg IM QMONTH 05/27/24 02/06/25 1,000 mcg/mL injection solution polyethylene glycol 3350 17 17 g PO DAILY PRN Constipation 05/27/24 02/06/25 gram/dose oral powder risperidone 1 mg tablet 0.5 mg PO DAILY PRN 05/27/24 02/06/25 anxiety/agitation/paranoia apixaban 5 mg tablet (Eliquis) 5 mg PO BID 06/12/24 02/06/25 atorvastatin 80 mg tablet 80 mg PO DAILY 06/12/24 02/06/25 ferrous sulfate 325 mg (65 mg 325 mg PO QAM 06/12/24 02/06/25 iron) tablet lidocaine-prilocaine 2.5 %-2.5 % 1 appl topical Q8-12H PRN moderate 06/12/24 02/06/25 topical cream pain nicotine 7 mg/24 hr daily 1 patch transdermal Q24H 06/12/24 02/06/25 transdermal patch sertraline 50 mg tablet (Zoloft) 75 mg PO DAILY 06/12/24 02/06/25 umeclidinium 62.5 mcg/actuation 1 inh inhalation DAILY 06/12/24 02/06/25 blister powder for inhalation (Incruse Ellipta) ursodiol 250 mg tablet 250 mg PO BID 06/12/24 02/06/25 benztropine 0.5 mg tablet 0.5 mg PO DAILY 08/27/24 02/06/25 cetirizine 10 mg tablet 10 mg PO QAM neuropathic pain 08/27/24 02/06/25 clopidogrel 75 mg tablet 75 mg PO DAILY 08/27/24 02/06/25 cyclobenzaprine 5 mg tablet 5 mg PO TID PRN 08/27/24 02/06/25 diclofenac sodium 1 % topical gel 2 g topical QID 08/27/24 02/06/25 famotidine 20 mg tablet 20 mg PO BID 08/27/24 02/06/25 metoprolol succinate 50 mg 50 mg PO DAILY 08/27/24 02/06/25 tablet,extended release 24 hr nicotine (polacrilex) 4 mg gum 4 mg PO DIRECTED 08/27/24 02/06/25 nicotine 14 mg/24 hr daily 1 patch topical QAM 08/27/24 02/06/25 transdermal patch Previous Rx's ?Medication ?Instructions ?Recorded ascorbic acid (vitamin C) 500 mg 1,000 mg (2 x 500 mg) PO QAM #180 05/28/24 tablet (Vitamin C) tabs doxycycline hyclate 100 mg tablet 100 mg PO BID 7 days #14 tabs 06/13/24 lidocaine 5 % topical patch 1 patch topical DAILY #30 ea 07/27/24 (Lidoderm) folic acid 1 mg tablet 1 mg PO DAILY #90 tabs 10/16/24 methotrexate sodium 2.5 mg tablet 25 mg (10 x 2.5 mg) PO QWEEK #120 10/16/24 tabs cyclobenzaprine 10 mg tablet 10 mg PO TID PRN muscle spasm #20 11/25/24 tabs dexamethasone 4 mg tablet 4 mg PO BID #6 tabs 11/25/24 vitamin A 3,000 mcg (10,000 unit) 1 cap PO QAM #90 caps 11/29/24 capsule docusate sodium 100 mg capsule 100 mg PO BID #60 caps 12/04/24 (Stool Softener) acetaminophen 500 mg tablet 1,000 mg (2 x 500 mg) PO Q8H PRN 01/17/25 (Tylenol Extra Strength) pain #30 tabs cephalexin 500 mg capsule 500 mg PO QID 7 days #28 caps 01/17/25 doxycycline hyclate 100 mg tablet 100 mg PO BID 7 days #14 tabs 01/17/25 pantoprazole 40 mg tablet,delayed 40 mg PO DAILY #90 tabs 01/30/25 release prednisone 5 mg tablet 5 mg PO DIRECTED #42 tabs 02/06/25 prednisone 20 mg tablet 20 mg PO DAILY 5 days #5 tabs 02/18/25 Allergies Allergy/AdvReac Type Severity Reaction Status Date / Time almond (ALMONDS) Allergy Severe ANAPHYLAXIS Verified 02/18/25 07:34 adhesive tape (ADHESIVE TAPE) Allergy Intermediate RASH Verified 02/18/25 07:34 morphine (MORPHINE) Allergy Intermediate GI UPSET, Verified 02/18/25 07:34 difficulty breathing leflunomide AdvReac Intermediate twitching Verified 02/18/25 07:34 tramadol (TRAMADOL) AdvReac Unknown NAUSEA & Verified 02/18/25 07:34 VOMITING Review of Systems Review of Systems: Yes all other systems are reviewed and are negative Constitutional: Constitutional: Reports as per [facility] Past Medical History Attestation statement: The following information was validated with the patient. Medical History PAD (peripheral artery disease) Skin lesion Anxiety Achilles tendinitis Superficial femoral artery occlusion Knee pain, left Depression Hx of peripheral pulmonary artery stenosis History of chemotherapy Cancer of heart Bone cancer Lung cancer Iron deficiency Seropositive rheumatoid arthritis Bleeding hemorrhoid Degeneration, intervertebral disc, lumbar Chronic GERD Degeneration of intervertebral disc at C4-C5 level Osteoarthritis of spine with radiculopathy, lumbar region Fibromyalgia Esophageal dysphagia Vitamin D deficiency Systemic lupus erythematosus Seropositive rheumatoid arthritis Rheumatoid arthritis involving multiple sites Gallstones Stress incontinence in female Nocturia Urgency-frequency syndrome De Quervain's disease (tenosynovitis) Depressive disorder Acute arthritis Hodgkin disease Surgical History History of heart surgery History of surgical removal of skin lesion (~07/13/23) History of angioplasty of vein History of biopsy H/O tubal ligation Hx of endoscopy Hx laparoscopic cholecystectomy Hx of colonoscopy History of esophagogastroduodenoscopy (EGD) History of repair of inguinal hernia History of lymph node dissection of left axilla Family History Family History Maternal Grandmother Ovarian cancer Social History Social History Household Members: Significant Other Housing: Apartment Are you a primary healthcare risk control consultant to a significant other at home: No Unable to assess alcohol history related to: Unknown Alcohol intake: never Comment: son at bedside Patient Tobacco Use Status: Never used Tobacco Tobacco use type: Cigarette Cigarette Packs Per Day: 1 Cigarettes Per Day: 20.0 Smoked in Last 30 Days: No Substance Use Type: Marijuana Substance Use Frequency: Weekly Advance Directives: Yes Advance Directives on File: Yes Advance Directives Date on File: 02/24/24 service: No Current occupational status: disabled 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 Physical Exam ED Vital Signs: Vital Signs - 24 hr 02/18/25 07:28 02/18/25 08:52 02/18/25 08:53 Temperature 98.1 F Pulse Rate 71 64 66 Respiratory Rate 20 Blood Pressure 113/53 L 122/75 125/65 Pulse Oximetry 97 Oxygen Delivery Method Room Air 02/18/25 08:53 02/18/25 08:56 02/18/25 10:44 Temperature Pulse Rate 72 66 61 Respiratory Rate 18 16 Blood Pressure 130/72 125/65 125/66 Pulse Oximetry 98 97 Oxygen Delivery Method Room Air Room Air BMI result Body Mass Index 29.7 Const General: cooperative, comfortable and no acute distress Orientation/consciousness: patient oriented x3 Limitations: no limitations HENMT Head: Yes normal to inspection, Yes normocephalic and Yes atraumatic Ears: hearing grossly normal bilaterally General nose exam: Normal external nose present Face and sinus: Yes normal facial exam Mouth: Normal oral and palatal mucosa present, oropharynx normal and moist mucous membranes Throat: Yes posterior oropharynx normal Eyes General: appearance normal, both eyes and all related structures Eyelids: Yes eyelids normal Conjunctivae: conjunctivae normal Sclerae: sclerae normal Pupils: Equal, round and reactive pupils present EOM: EOMs intact bilaterally Neck Neck: Yes normal visual inspection, Yes full ROM and Yes no lymphadenopathy Lymphatic: no lymphadenopathy noted Chest Chest palpation & inspection: normal inspection of the chest Resp Effort & Inspection: normal respiratory effort and able to speak in complete sentences Auscultation: clear to auscultation bilaterally, no crackles, no rales, no rhonchi and no wheezes Cardio Rate: regular rate Rhythm: regular rhythm Heart sounds: S1 normal heart sound present and S2 normal heart sound present GI Other: Abdomen is soft, nontender, nondistended Inspection: Yes normal to inspection General: Yes no CVA tenderness Back/Spine/Pelvis Back: no CVA tenderness Skin General skin exam: no rashes or lesions noted Trauma: no lacerations or abrasions Wounds: no wounds Neuro General: patient oriented x3 and moves all extremities Cranial nerves: Yes CN's II-XII intact bilaterally and Yes Equal, round and reactive pupils present Cognition (Neuro): normal cognition Gait exam (Neuro): Normal gait present Motor exam (neuro): 5/5 motor strength present throughout and Pronator motor function not present Extrem Other: Right hand, 5th digit there is mild edema noted, decreased range of motion secondary to pain. No overlying erythema or warmth. Strong radial pulse. Capillary refill less than 2 seconds. Bilateral legs with no obvious pitting edema noted, patient has tenderness palpation along bilateral calves, no overlying erythema or warmth. Strong DP pulse. General: Yes normal to inspection Left upper extremity: normal to inspection Right lower extremity: normal to inspection Left lower extremity: normal to inspection Medications Administered Discontinued Medications Generic Name Dose Route Start Last Admin Trade Name Starla PRN Reason Stop Dose Admin Acetaminophen 975 mg 02/18/25 09:40 02/18/25 09:47 Acetaminophen 325 Mg Tablet PO 02/18/25 09:41 975 mg ONCE ONE Administration Medical Decision Making Medical Decision Making [facility] Narrative: This is a 49-year-old female who presents emergency department for evaluation bilateral leg pain, right hand swelling and pain, and dizziness which started last night. On arrival, patient is alert and oriented x4, she is speaking in full sentences under no acute distress. Patient has mild swelling noted overlying the 5th metacarpal bones. Decreased range of motion. Strong radial pulse. She does have bilateral calf pain strong DP pulse. She does appreciate intermittent dizziness which occurs with positional changes. Differential diagnoses include orthostatic hypotension, electrolyte derangement, RA flare, DVT, arthritis. Plan: Labs, EKG, orthostatics, x-ray, ultrasound 1200 - labs returned, mild leukopenic at 3.6, ESR elevated at 81, similar to previous, chemistry with no significant electrolyte derangement. Urine does not appear to be infectious, does appear to be contaminated. COVID, flu, RSV test was negative. Bilateral ultrasounds revealing left-sided Dhillon's cyst measuring 3 x 1 x 1.5 unchanged. She does have bilateral reactive appearing groin lymph nodes noted. X-ray of the left knee unremarkable. X-ray of the right knee unremarkable. X-ray of the right hand revealing mild arthritic changes suspected along the PIP and DIP joints of all digits, there is mild soft tissue swelling a PIP joint 2nd 3rd and 4th digits. Discussed overall workup, symptoms likely attributed to arthritis and lupus. Will start on low-dose prednisone 20 mg for 5 days. Advised to call dependency director today for follow-up. She is ambulatory in the department without difficulty. Given strict return precautions, patient stable for discharge. Differential Diagnosis Differential Diagnoses: The differential diagnosis associated with the presentation includes See above Admission/Observation Consideration of admission/observation: Escalation of care including admission/observation considered Lab Data [facility] Lab Attestation statement: I reviewed the patient's lab results. See MDM and course 02/18/25 08:49 02/18/25 08:49 Labs: Lab Results 02/18/25 02/18/25 Range/Units 08:49 10:44 WBC 3.6 L (4.8-10.8) X10*3/uL RBC 4.16 L (4.20-5.50) X10*6/uL Hgb 12.5 (12.0-16.0) g/dl Hct 37.9 (37.0-47.0) % MCV 91.1 (80.0-98.0) fL MCH 30.0 (27.0-33.0) pg MCHC 33.0 (31.0-35.0) g/dl RDW 14.1 (11.0-16.0) % Plt Count 308 (160-400) X10*3/uL MPV 9.6 (9.4-12.3) fL Immature Gran % (Auto) 0.3 (0.0-0.4) % Neut % (Auto) 44.3 L (45-73) % Lymph % (Auto) 47.5 H (20-40) % [place] % (Auto) 5.6 (2-11) % Eos % (Auto) 1.7 (0-4) % Baso % (Auto) 0.6 (0-2) % Lymph # (Auto) 1.7 (1.2-4.9) X10*3/uL [place] # (Auto) 0.2 (0.1-1.2) X10*3/uL Eos # (Auto) 0.1 (0.0-0.4) X10*3/uL Baso # (Auto) 0.0 (0.0-0.2) X10*3/uL Abs Immat Gran (auto) 0.01 (0.00-0.03) X10*3/uL Absolute Neuts (auto) 1.6 L (2.0-8.3) x10*3/uL Absolute Nucleated RBC 0.000 (0.0-0.012) X10*3/uL Nucleated RBC % (auto) 0.0 (0.0-0.2) /100WBC ESR 81 H (0-20) MM/HR Sodium 140 (135-145) mmol/L Potassium 4.6 D (3.3-5.1) mmol/L Chloride 106 (96-108) mmol/L Carbon Dioxide 25 (22-29) mmol/L Anion Gap 14 (12-20) BUN 12 (9-16) mg/dL Creatinine 0.62 (0.5-1.4) mg/dL Estim Creat Clear Calc 120.9 Estimated GFR > 60 Random Glucose 101 (60-115) mg/dL Calcium 9.6 (8.4-10.2) mg/dL Magnesium 2.2 (1.6-2.6) mg/dL Total Bilirubin 0.2 (0.0-1.0) mg/dL Direct Bilirubin < 0.2 (0.0-0.5) mg/dL AST 29 (5-31) U/L ALT 13 (0-31) U/L Alkaline Phosphatase 91 (39-117) U/L Troponin I High Sens < 2.7 (<3.5-17.0) ng/L C-Reactive Protein 0.44 (< or = 0.50) mg/dL B-Natriuretic Peptide 48 (<100) pg/mL Total Protein 9.6 H (6.5-8.0) g/dL Albumin 4.2 (3.5-5.0) g/dL Urine Color Yellow Urine Appearance Clear Urine pH 6.0 (5.0-9.0) Ur Specific [place] 1.020 (1.005-1.025) Urine Protein Negative (Neg-Trace) mg/dL Urine Glucose (UA) Negative (Negative) mg/dL Urine Ketones Negative (Negative) mg/dL Urine Blood Negative (Negative) Urine Nitrite Negative (Negative) Ur Leukocyte Esterase Small (1+) H (Negative) Urine RBC 0-2 (0-2) /HPF Urine WBC 6-10 H (0-5) /HPF Ur Squamous Epith Cells 11-20 (0-2) /HPF Urine Bacteria Trace (None Seen) Hyaline Casts 0-2 (0-2) /LPF Influenza Type A (PCR) NEGATIVE (Negative) Influenza Type B (PCR) NEGATIVE (Negative) RSV RNA Qual (PCR) NEGATIVE (Negative) SARS-CoV-2 RNA (RT-PCR) NEGATIVE (Negative) Independent Interpretation I performed an independent interpretation of an: EKG Interpretation: EKG normal sinus rhythm at a ventricular rate of 62 beats per minute, QT QTC 422/428, no STEMI. Radiology Impression Discussion of test interpretation with radiology: I have reviewed the radiologist's reading. Radiologist Impression: FINDINGS: There is minimal loss of PIP and DIP joint space of all digits without bony erosive changes or spurring. No fracture, dislocation seen. There is minimal soft tissue swelling around the PIP joints of second third and fourth digits. Incidental finding of an negative ulnar variance and partial calcification of TFC XR/XR hand RT min 3V IMPRESSION: Mild arthritic changes suspected along the PIP and DIP joints all digits. There is mild soft tissue swelling PIP joint second, third and fourth digits. Electronically signed by: Jamie Avelar MD 02/18/2025 09:27 AM EDT RP Dictated By: Jamie Avelar MD COMPARISON: None available. TECHNIQUE: Four views of the right knee. FINDINGS: No fracture or joint effusion. Alignment is anatomic. Joint spaces are maintained. No abnormal soft tissue calcification. XR/XR knee RT 3V IMPRESSION: Normal right knee. Electronically signed by: Jamie Avelar MD 02/18/2025 09:22 AM EDT RP Dictated By: Jamie Avelar MD FINDINGS: No fracture or joint effusion. Alignment is anatomic. Joint spaces are maintained. No abnormal soft tissue calcification. XR/XR knee LT 3V IMPRESSION: Unremarkable left knee. Electronically signed by: Jamie Avelar MD 02/18/2025 09:23 AM EDT RP Dictated By: Jamie Avelar MD FINDINGS: Respiratory variation, normal compression and augmented flow are noted throughout the bilateral lower extremities. The visualized common femoral vein, superficial femoral vein, profunda femoral vein, popliteal vein and midcalf peroneal and posterior tibial venous segments show no evidence of deep venous thrombosis bilaterally. There is a left popliteal fossa cyst measuring 3.0 x 1.0 x 1.5 cm, unchanged from prior. There are bilateral reactive appearing groin lymph nodes. These demonstrate large fatty trista. US/US venous duplex LE IMPRESSION: 1. No evidence of deep venous thrombosis involving the bilateral lower extremities. 2. Left-sided Dhillon's cyst measuring 3.0 x 1.0 x 1.5 cm, unchanged. 3. Bilateral reactive appearing groin lymph nodes. Electronically signed by: Arian Mondragon MD 02/18/2025 10:24 AM EDT RP Dictated By: Arian Mondragon MD Discharge Plan Discharge Clinical Impression: Arthralgia Patient Disposition: Home, Self-Care Instructions: Arthralgia (ED) Additional Instructions: You were seen in the emergency department due to multiple complaints. Your blood work was reassuring. Your urine appeared to be contaminated - unclear if this is a true infection, we will call you if we need to start you on antibiotics. Your ultrasound of the legs do not show any blood clots. You do have a Dhillon's cyst noted on your left leg. Your knee x-rays were normal. Your hand x-ray shows arthritis. Your symptoms are likely attributed to a flare-up. You need to follow-up with your dependency director as they may need to adjust your medications. I am giving you a short course of prednisone, take this as prescribed. Continue taking Tylenol as needed for pain. Gentle stretching, heat or ice, massage can also help. If any new or worsening symptoms occur including but not limited to worsening symptoms, please seek emergent care. Prescriptions: New prednisone 20 mg tablet 20 mg PO DAILY 5 Days Qty: 5 0RF No Action ascorbic acid (vitamin C) [Vitamin C] 500 mg tablet 1,000 mg PO QAM Qty: 180 2RF vitamin A 3,000 mcg (10,000 unit) capsule 1 cap PO QAM Qty: 90 1RF docusate sodium [Stool Softener] 100 mg capsule 100 mg PO BID Qty: 60 3RF pantoprazole 40 mg tablet,delayed release (DR/EC) 40 mg PO DAILY Qty: 90 1RF atorvastatin 80 mg tablet 80 mg PO DAILY lidocaine-prilocaine 2.5-2.5 % cream 1 appl topical Q8-12H PRN (Reason: moderate pain) ferrous sulfate 325 mg (65 mg iron) tablet 325 mg PO QAM ursodiol 250 mg tablet 250 mg PO BID sertraline [Zoloft] 50 mg tablet 75 mg PO DAILY Eliquis 5 mg tablet 5 mg PO BID Incruse Ellipta 62.5 mcg/actuation blister with device 1 inh INHALATION DAILY nicotine 7 mg/24 hr Patch 24 Hour 1 patch TRANSDERMAL Q24H doxycycline hyclate 100 mg tablet 100 mg PO BID 7 Days Qty: 14 0RF cephalexin 500 mg capsule 500 mg PO QID 7 Days Qty: 28 0RF doxycycline hyclate 100 mg tablet 100 mg PO BID 7 Days Qty: 14 0RF acetaminophen [Tylenol Extra Strength] 500 mg tablet 1,000 mg PO Q8H PRN (Reason: pain) Qty: 30 0RF albuterol sulfate 90 mcg/actuation Hfa Aerosol Inhaler 2 puff INHALATION Q6H PRN (Reason: Wheezing) polyethylene glycol 3350 17 gram/dose powder 17 g PO DAILY PRN (Reason: Constipation) risperidone 1 mg tablet 0.5 mg PO DAILY PRN (Reason: anxiety/agitation/paranoia) cholecalciferol (vitamin D3) [Vitamin D3] 25 mcg (1,000 unit) capsule 25 mcg PO DAILY cyanocobalamin (vitamin B-12) 1,000 mcg/mL Solution 1,000 mcg IM QMONTH lidocaine [Lidoderm] 5 % adhesive patch,medicated 1 patch topical DAILY Qty: 30 0RF Rx Instructions: leave on most painful area for up to 12 hrs dexamethasone 4 mg tablet 4 mg PO BID Qty: 6 0RF cyclobenzaprine 10 mg tablet 10 mg PO TID PRN (Reason: muscle spasm) Qty: 20 0RF alprazolam 1 mg tablet 1 mg PO BEDTIME PRN (Reason: Anxiety) trazodone 150 mg tablet 150 mg PO BEDTIME PRN (Reason: anxiety/sleep) oxycodone-acetaminophen 7.5-325 mg tablet 1 tab PO Q8H PRN (Reason: severe pain) gabapentin 400 mg capsule 400 mg PO TID methotrexate sodium 2.5 mg tablet 25 mg PO QWEEK Qty: 120 1RF Rx Instructions: Split dose into 5 tabs in the morning and 5 tabs at night folic acid 1 mg tablet 1 mg PO DAILY Qty: 90 1RF benztropine 0.5 mg tablet 0.5 mg PO DAILY cetirizine 10 mg tablet 10 mg PO QAM clopidogrel 75 mg tablet 75 mg PO DAILY cyclobenzaprine 5 mg tablet 5 mg PO TID PRN diclofenac sodium 1 % gel 2 g topical QID famotidine 20 mg tablet 20 mg PO BID nicotine (polacrilex) 4 mg gum 4 mg PO DIRECTED metoprolol succinate 50 mg tablet extended release 24 hr 50 mg PO DAILY nicotine 14 mg/24 hr patch 24 hour 1 patch topical QAM prednisone 5 mg tablet 5 mg PO DIRECTED Qty: 42 0RF Rx Instructions: see taper instructions. Take 3 tablets x 1 week then 2 tablets x 1 week then 1 tablet x 1 week then stop Print Language: Guatemalan
--- NOTE | 2025-02-18 08:12 | ECG_ITS ---
Test Reason : dizziness Blood Pressure : */* mmHG Vent. Rate : 62 BPM Atrial Rate : 62 BPM P-R Int : 172 ms QRS Dur : 104 ms QT Int : 422 ms P-R-T Axes : 50 -56 36 degrees QTcB Int : 428 ms Normal sinus rhythm Left anterior fascicular block Moderate voltage criteria for LVH, may be normal variant ( R in aVL , Remy product ) Abnormal ECG When compared with ECG of 17-Jan-2025 13:12, Criteria for Septal infarct are no longer Present Referred By: Jana Singh Electronically Signed By: Ruddy Larios
[2025-02-18 08:52] VITALS: BP 122/75; PULSE 64
[2025-02-18 08:53] VITALS: BP 125/65; BP 130/72; PULSE 66; PULSE 72
[2025-02-18 08:55] LABS: MANUAL DIFF FLAG NO
[2025-02-18 08:56] VITALS: BP 125/65; PULSE 66; RESP 18; O2SAT 98
[2025-02-18 08:57] LABS: Hematocrit 37.9 % (37.0-47.0); Hemoglobin 12.5 g/dl (12.0-16.0); Imm Gran Abs Auto 0.01 X10*3/uL (0.00-0.03); Imm Gran Pct Auto 0.3 % (0.0-0.4); Lymphocytes Absolute Auto 1.7 X10*3/uL (1.2-4.9); Mean Corpuscular HGB Conc 33.0 g/dl (31.0-35.0); Mean Corpuscular Hemoglobin 30.0 pg (27.0-33.0); Mean Corpuscular Volume 91.1 fL (80.0-98.0); NRBC Abs Auto 0.000 X10*3/uL (0.0-0.012); NRBC Pct Auto 0.0 /100WBC (0.0-0.2); Platelet Count 308 X10*3/uL (160-400); Red Blood Count 4.16 X10*6/uL (4.20-5.50); White Blood Count 3.6 X10*3/uL (4.8-10.8)
[2025-02-18 09:14] LABS: Alanine Aminotransferase 13 U/L (0-31); Albumin Level 4.2 g/dL (3.5-5.0); Alkaline Phosphatase 91 U/L (39-117); Anion Gap 14 (12-20); Aspartate Amino Transferase 29 U/L (5-31); Blood Urea Nitrogen 12 mg/dL (9-16); Calcium 9.6 mg/dL (8.4-10.2); Carbon Dioxide 25 mmol/L (22-29); Chloride 106 mmol/L (96-108); Creatinine Clr Calc Pharmacy 120.9; Estimated Glomerular Filt Rate > 60; Magnesium 2.2 mg/dL (1.6-2.6); Potassium 4.6 mmol/L (3.3-5.1); Sodium 140 mmol/L (135-145); Total Protein 9.6 g/dL (6.5-8.0)
[2025-02-18 09:16] LABS: B Type Natriuretic Peptide 48 pg/mL (<100)
[2025-02-18 09:20] LABS: Troponin-I High Sensitivity < 2.7 ng/L (<3.5-17.0)
[2025-02-18 09:47] LABS: Resp Syncy Virus RNA Qual PCR NEGATIVE (Negative); SARS COV2 PCR INHOUSE NEGATIVE (Negative)
[2025-02-18 10:44] VITALS: BP 125/66; PULSE 61; RESP 16; O2SAT 97
[2025-02-18 10:52] LABS: Appearance Urine Clear; Glucose Urine UA Negative (Negative); PH 6.0 (5.0-9.0); Specific Gravity - Urine 1.020 (1.005-1.025); UMIC TRIGGER UACC YES
[2025-02-18 10:55] LABS: UACC Culture Trigger YES
[2025-02-18 12:41] VITALS: BP 132/79; PULSE 67; RESP 18; TEMP 36.6; O2SAT 97
== END 2025-02-18 12:44 | disposition home or self-care (01) ==
PROVIDERS: Physician Assistant Medical; Emergency Provider Emergency Medicine; PCP General Practice
DX: N39.0 Urinary tract infection, site not specified (principal); B95.1 Streptococcus, group B, as the cause of diseases classified elsewhere; M71.22 Synovial cyst of popliteal space [Baker], left knee; M79.605 Pain in left leg; M79.604 Pain in right leg; R42 Dizziness and giddiness; L93.0 Discoid lupus erythematosus; Z86.718 Personal history of other venous thrombosis and embolism; Z79.899 Other long term (current) drug therapy; Z79.01 Long term (current) use of anticoagulants; Z79.02 Long term (current) use of antithrombotics/antiplatelets; Z03.818 Encounter for observation for suspected exposure to other biological agents ruled out; Z85.118 Personal history of other malignant neoplasm of bronchus and lung; Z85.29 Personal history of malignant neoplasm of other respiratory and intrathoracic organs; Z85.830 Personal history of malignant neoplasm of bone; Z92.21 Personal history of antineoplastic chemotherapy
CPT/HCPCS: 36415; 73130; 73562; 80048; 80076; 81001; 83735; 83880; 84484; 85025; 85652; 86140; 87086; 87147; 87637; 93005; 93970; 99284; 99285

== ENCOUNTER → 2025-02-18 08:12 | Outpatient (BNV) | payer MEDICAID, SELFPAY | PROVIDERS: Emergency Provider Emergency Medicine; PCP General Practice; Visit Provider Internal Medicine Cardiovascular Disease | DX: I44.4 Left anterior fascicular block (principal) | CPT/HCPCS: 93010 ==

== ENCOUNTER → 2025-02-18 08:46 | Outpatient (BNV) | payer MEDICAID, SELFPAY | PROVIDERS: Emergency Provider Emergency Medicine; PCP General Practice; Visit Provider Radiology Diagnostic Radiology | DX: M71.22 Synovial cyst of popliteal space [Baker], left knee (principal); M25.562 Pain in left knee; M25.561 Pain in right knee; R22.31 Localized swelling, mass and lump, right upper limb | CPT/HCPCS: 73130; 73562; 93970 ==

== ENCOUNTER 2025-03-08 12:08 | Outpatient (AMB) | payer MEDICAID, SELFPAY ==
--- OUTSIDE RECORDS SUMMARY | 2025-03-08 12:11 | XMS_ITS | Encounter Summary ---
Author Organization [facility] Address [address] [facility] 7t [place] [address] Care Team Providers Care Supervisor Firearms Name Role Phone Mackenzie Estrada MD Primary Care Provider [phone] Casper Magaña RN Unavailable Ruth Ann Price Unavailable Unavailable Ruth Ann Price Unavailable Reason for Visit * Reason Comments Med Refill Encounter Details Date Type Department Care Team ([facility] Contact Info) Description 12/10/2022 Refill [facility] MEDICINE [address] [place] [id number] Mackenzie Estrada MD [address] [place], [place] [phone] Pain in both hands Social History Tobacco [...] [facility] Contact Info) Description 03/12/2025 9:45 AM EDT Office Visit [facility] MEDICINE [address] [place] [address] documented as of this encounter Visit Diagnoses Diagnosis Pain in both hands documented in this encounter Care Teams Supervisor Firearms Relationship Specialty Start Date End Date Mackenzie Estrada MD [address] [place] [address] PCP - General Family Medicine 07/10/20 Casper Magaña, JENNIFER [address] [place] [address] Registered Nurse Family Medicine 01/18/25 01/18/25 Ruth Ann Price 02/19/25 02/19/25 Ruth Ann Price 02/19/25 02/28/25 Hemalatha Pretty Biomedical ScientistPivot End Polisher 01/02/25 documented as of this encounter
--- OUTSIDE RECORDS SUMMARY | 2025-03-08 12:11 | XMS_ITS | Clinical Summary ---
Author Organization [facility] Address [address] [place] [address] Care Team Providers Care Guest Relations Agent Name Role Phone Sanjay Cruz MD Primary Care Provi [facility] Surgical History Surgery Date Site/Laterality Comments OTHER SURGICAL HISTORY 05/12/2020 Right PROCEDURE: ME BX/EXC LYMPH NODE OPEN SUPERFICIAL; COMMENT: Axillary Lymph Node biopsy- Benign Lymphoid Tissue OTHER SURGICAL HISTORY 12/19/2019 Right PROCEDURE: ME BX/EXC LYMPH NODE NEEDLE SUPERFICIAL; COMMENT: Axillary Lymph node -results were non daignostic Medical History Medical History Date Comments Anxiety DX:Anxiety Migraine DX:Migraine History of DVT (deep vein thrombosis) 05/23/2020 DX:History of DVT (deep vein thrombosis); COMMENT: 01/2005 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 0 DX:jail current use of anticoagulant Acute deep vein thrombosis ( DVT) of brachial vein of right upper extremity ([facility] V24, [facility] V28) 05/09/2020 DX:Acute deep vein thrombos is (DVT) of brachial vein of right upper extremity (HCC) Axillary lymphadenopathy 05/09/2020 DX:Axil harvinder lymphadenopathy Gastroesophageal reflux disease 05/09/2020 DX:Gastroesophageal reflux disease Personal history of Hodgkin lymphoma 05/09/2020 DX:Personal history of Hodgkin lymphoma Recurrent major depressive d isorder in remission ([facility] V24) 05/09/2020 DX:Recurrent major depressiv e disorder in remission (HCC) Rheumatoid arthritis involvi ng multiple sites ([facility] V24, [facility] V28) 05/09/2020 DX:Rheumatoid arthritis invo lving multiple sites (HCC) Hodgkin's disease, nodular s clerosis, of lymph nodes of multiple sites ([facility] V24, [facility] V28) DX:Hodgkin's disease, nodul ar [...] age to complete this topic Care Teams Guest Relations Agent Relationship Specialty Start Date End Date Sanjay Cruz MD [address] [place] [phone] PCP - General Internal Medicine 04/09/20
--- OUTSIDE RECORDS SUMMARY | 2025-03-08 12:11 | XMS_ITS | Clinical Summary ---
Author Organization [facility] Address [address] [place] [address] Support Name Relationship Address Phone Brayden Hernandez Emergency Contact [address] [place] [id number] Care Team Providers Care Loss Prevention Manager Name Role Phone Abdullahi Lizarraga MD Primary Care Provider [phone] Allergies Active Allergy Reactions Criticality Noted Date [...] age to complete this topic Care Teams Loss Prevention Manager Relationship Specialty Start Date End Date Abdullahi Lizarraga MD [address] [place] [address] PCP - General Nephrology 03/10/18
[2025-03-08 13:39] VITALS: BP 120/74; PULSE 65; TEMP 36.1; O2SAT 97; BMI 29.7
--- NOTE | 2025-03-08 13:39 | A.OFFVIS_ITS ---
Vital Signs 03/08/25 13:39 Height 5 ft 6 in Weight 184 lb 1.376 oz BMI 29.7 BP 120/74 Blood Pressure Location Lt brachial Position Sitting Pulse 65 Pulse Source Pulse Oximeter Temp 97 F Pulse Oximetry (%) 97 Oxygen Delivery Method Room Air Intake Visit Reasons: RA/MD approved Intake Note: Patient presents for flare up of RA, and is requesting refill of Prednisone. Info Print Press Operator Required: Yes Info Print Press Operator Name: Casper [id number] Allergies almond (ALMONDS) Allergy (Severe, Verified 03/08/25 13:46) ANAPHYLAXIS adhesive tape (ADHESIVE TAPE) Allergy (Intermediate, Verified 03/08/25 13:46) RASH morphine (MORPHINE) Allergy (Intermediate, Verified 03/08/25 13:46) GI UPSET, difficulty breathing leflunomide Adverse Reaction (Intermediate, Verified 03/08/25 13:46) twitching tramadol (TRAMADOL) Adverse Reaction (Unknown, Verified 03/08/25 13:46) NAUSEA & VOMITING Medication List - Last Reconciled 03/08/25 by Bridget Corley MD acetaminophen (Tylenol Extra Strength) 1,000 mg (2 x 500 mg) PO Q8H PRN albuterol sulfate 90 mcg/actuation 2 puffs inhalation Q6H PRN alprazolam 1 mg PO BEDTIME PRN apixaban (Eliquis) 5 mg PO BID ascorbic acid (vitamin C) (Vitamin C) 1,000 mg (2 x 500 mg) PO QAM atorvastatin 80 mg PO DAILY cetirizine 10 mg PO QAM cholecalciferol (vitamin D3) (Vitamin D3) 25 mcg PO DAILY clopidogrel 75 mg PO DAILY docusate sodium 100 mg PO BID famotidine 20 mg PO BID ferrous sulfate 325 mg PO QAM gabapentin 400 mg PO TID metoprolol succinate ER 50 mg PO DAILY nicotine 1 patch topical QAM prednisone 20 mg PO DAILY risperidone 0.5 mg PO DAILY PRN sertraline (Zoloft) 75 mg PO DAILY sulfamethoxazole-trimethoprim 400-80 mg (Bactrim) 1 tab PO DAILY trazodone 150 mg PO BEDTIME PRN umeclidinium 62.5 mcg/actuation (Incruse Ellipta) 1 inh inhalation DAILY ursodiol 250 mg PO BID vitamin A 1 cap PO QAM HPI Comments Details: Patient is a 49-year-old female with hypertension complicated by NSTEMI status post stenting with ischemic cardiomyopathy, hyperlipidemia complicated by peripheral arterial disease, unprovoked DVT on Eliquis, seropositive nodular rheumatoid arthritis complicated by left femur avascular necrosis secondary to prednisone use and fibromyalgia Interval History: Patient last seen 10/16/24 with me. - joint pain and swelling involving her bilateral hands, wrists and knees. Making it difficult to do her ADLs. She was very tearful during the examination. - Orencia discontinued and started on Actemra infusions Today - Here for urgent visit for flare - Hands swollen - Nodules on elbows with evidence of infection - Has been having fevers at home Rheumatologic History: Seropositive nodular RA RF++CCP++ On prednisone throughout until it was discontinued 10/2023 due to left femur avascular necrosis methotrexate and hydroxychloroquine ?2019 Xeljanz 05/2020-08/2020(ineffective) 2020 methotrexate and Humira (HCQ stopped - ?vision changes). 06/2022 Humira stopped due to poor repsonse 06/2022 methotrexate and Actemra 12/2022: Actemra SC stopped by the patient. She had some leg swelling as well. 03/10/2023 and 03/24/23: 1 g on each day rituximab administered. Had SOB associated with administration Olumiant 08/2023 effective. Stopped because she has history of DVT Leflunomide added 01/2024 ineffective and caused twitching Orencia infusions 05/2024 - 09/2024. secondary non response Actemra 10/2024 SLE January 2022: ++DsDNA positive. Rheumatoid factor and CCP antibody markedly positive. This looks more like picture of seropositive RA. Current Rheumatology Medication(s): Actemra 8mg/kg every 4 weeks Methotrexate 25 mg p.o. weekly Folic acid 1 mg daily [facility] Medical History PAD (peripheral artery disease) Skin lesion Anxiety Achilles tendinitis Superficial femoral artery occlusion Knee pain, left Depression Hx of peripheral pulmonary artery stenosis History of chemotherapy Cancer of heart Bone cancer Lung cancer Iron deficiency Seropositive rheumatoid arthritis Bleeding hemorrhoid Degeneration, intervertebral disc, lumbar Chronic GERD Degeneration of intervertebral disc at C4-C5 level Osteoarthritis of spine with radiculopathy, lumbar region Fibromyalgia Esophageal dysphagia Vitamin D deficiency Systemic lupus erythematosus Seropositive rheumatoid arthritis Rheumatoid arthritis involving multiple sites Gallstones Stress incontinence in female Nocturia Urgency-frequency syndrome De Quervain's disease (tenosynovitis) Depressive disorder Acute arthritis Hodgkin disease Surgical History History of heart surgery History of surgical removal of skin lesion (~07/13/23) History of angioplasty of vein History of biopsy H/O tubal ligation Hx of endoscopy Hx laparoscopic cholecystectomy Hx of colonoscopy History of esophagogastroduodenoscopy (EGD) History of repair of inguinal hernia History of lymph node dissection of left axilla Family History Maternal Grandmother Ovarian cancer Social History Household Members: Significant Other Housing: Apartment Are you a primary specialist wound care to a significant other at home: No Unable to assess alcohol history related to: Unknown Alcohol intake: never Comment: son at bedside Patient Tobacco Use Status: Never used Tobacco Tobacco use type: Cigarette Cigarette Packs Per Day: 1 Cigarettes Per Day: 20.0 Substance Use Type: Marijuana Advance Directives Date on File: 02/24/24 service: No Current occupational status: disabled 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 of Systems Const Details: Review of Systems Constitutional: Denies fever, chills, weight loss ENT: Denies vision changes, eye pain or eye redness, dental caries, dry mouth GI: Denies nausea, vomiting, diarrhea, abdominal pain, change in BM Pulm: Denies SOB, VALENTIN, hemoptysis, wheezing Cards: Denies chest pain, palpitations Skin: Denies Raynaud's, rash, nail changes, photosensitivity, REFERRAL CLERK: Denies headaches, weakness, paresthesias, recurrent falls MSK: as per HPI All other systems reviewed and are unremarkable except noted above Physical Exam Exam Exam: Vital signs reviewed Physical Examination CONSTITUITIONAL Patient alert and cooperative. Well appearing and in painful distress MSK Hands * Bilateral hands swollen and exquisitely tender to palpation Wrists * Bilateral wrists swollen and tender to palpation Elbows * Bilateral elbows with rheumatoid nodules and purulent discharge Shoulders * Decreased range of motion bilaterally secondary to pain Knees * Warmth and tenderness to palpation noted bilaterally Ankles * Swelling noted bilaterally Feet * Bilateral positive squeeze test Tender points? * No tenderness to palpation of the bilateral trapezius, supraspinatus, anterior costochondral junctions, bilateral suboccipital muscle insertions Vital Signs: Last Vital Signs Temp 97 F 03/08/25 13:39 Pulse 65 03/08/25 13:39 BP 120/74 03/08/25 13:39 Pulse Ox 97 03/08/25 13:39 Oxygen Delivery Method Room Air 03/08/25 13:39 BMI result Body Mass Index 29.7 Results Reviewed Results Reviewed: Laboratory Tests 02/18/25 08:49 WBC 3.6 L RBC 4.16 L Hgb 12.5 Hct 37.9 Plt Count 308 ESR 81 H Sodium 140 Potassium 4.6 D Chloride 106 Carbon Dioxide 25 BUN 12 Creatinine 0.62 AST 29 ALT 13 Alkaline Phosphatase 91 C-Reactive Protein 0.44 Immunology labs 11/07/23 02/14/24 04/11/24 12:03 11:00 10:26 Rheumatoid Factor 482.4 H 525.0 H Cycl Citrul Peptide IgG >250 H Anti-ds DNA Titer (Crith) 1:320 H Anti-ds DNA (Crithidia) Positive A Complement C3 123 Complement C4 24 Infectious serologies 10/16/24 11:22 Hepatitis A IgM Ab Nonreactive Hep Bs Antigen Negative Hep Bs Antibody NONREACTIVE Hep B Core Total Ab Nonreactive Hepatitis C Ab (EIA) Nonreactive TB Test (T-Spot) Com Negative Assessment & Plan Assessment & Plan (1) Seropositive rheumatoid arthritis: Comment: RF++CCP++ On prednisone throughout until it was discontinued 10/2023 due to left femur avascular necrosis methotrexate and hydroxychloroquine ?2019 Xeljanz 05/2020-08/2020(ineffective) 2020 methotrexate and Humira(HCQ stopped - ?vision changes). 06/2022 Humira stopped due to poor repsonse 06/2022 methotrexate and Actemra 12/2022: Actemra SC stopped by the patient. She had some leg swelling as well. 03/10/2023 and 03/24/23: 1 g on each day rituximab administered Olumiant 08/2023 effective Leflunomide added 01/2024 ineffective and caused twitching Orencia infusions 05/2024 - 09/2024. Ineffective with breakthrough synovitis Actemra infusions 09/2024 Code(s): M05.9 - Rheumatoid arthritis with rheumatoid factor, unspecified Category: Medical Plan: #Seropositive nodular RA Patient is a 49-year-old female with seropositive nodular rheumatoid arthritis here today for urgent visit for flare. Despite Actemra infusions patient continues to have a significant flare of her disease as evidenced by swelling to her hands and eliminated close them. Her course is also complicated by recurrent elbow infections of the rheumatoid nodules. This may be related to her Actemra use since this is the 2nd time this has happened while she is on Actemra. For now we will discontinue Actemra and methotrexate, start prednisone 20 mg daily, start Bactrim prophylaxis for PCP, and send to the emergency department given her history of fevers Plan - Stop Actemra and methotrexate - Prednisone 20mg daily - Bactrim 1 tab daily - Send to ER - RTC 1 month Plan I spent 40 minutes reviewing the record and labs, taking a history, examining the patient, discussing the treatment plan, ordering diagnostic work up, contacting ER staff and documenting in the medical record Medications: New prednisone 20 mg PO DAILY 30 tabs 1RF M05.9 - Rheumatoid arthritis with rheumatoid factor, unspecified sulfamethoxazole-trimethoprim 400-80 mg (Bactrim) 1 tab PO DAILY 30 tabs 4RF Z79.52 - intermodal dispatcher (current) use of systemic steroids Discontinued prednisone Discontinued Reason: Change Referral Type 20 mg PO DAILY 5 days 5 tabs 0RF methotrexate sodium Split dose into 5 tabs in the morning and 5 tabs at night Discontinued Reason: Doctor's Order 25 mg (10 x 2.5 mg) PO QWEEK 120 tabs 1RF prednisone see taper instructions. Take 3 tablets x 1 week then 2 tablets x 1 week then 1 tablet x 1 week then stop Discontinued Reason: Duplicate 5 mg PO DIRECTED 42 tabs 0RF M05.9 - Rheumatoid arthritis with rheumatoid factor, unspecified folic acid Discontinued Reason: Doctor's Order 1 mg PO DAILY 90 tabs 1RF Coding Level of Care Code Est Pt Level 5 (41553) Complex EM visit Add On G2211 Diagnoses Seropositive rheumatoid arthritis M05.9
== END 2025-03-08 14:17 | disposition home or self-care (01) ==
LOC: HO.RHES 12:09
PROVIDERS: PCP General Practice; Visit Provider Student in an Organized Health Care Education/Training Program
DX: M05.79 Rheumatoid arthritis with rheumatoid factor of multiple sites without organ or systems involvement (principal)
CPT/HCPCS: 99215

== ENCOUNTER → 2025-03-08 12:08 | Outpatient (BNVA) | payer MEDICAID, SELFPAY | PROVIDERS: PCP General Practice; Visit Provider Student in an Organized Health Care Education/Training Program | DX: M05.9 Rheumatoid arthritis with rheumatoid factor, unspecified (principal); Z79.52 Long term (current) use of systemic steroids | CPT/HCPCS: 99212 ==

== ENCOUNTER 2025-03-27 13:40 | Outpatient (AMB) | payer MEDICAID, SELFPAY ==
--- OUTSIDE RECORDS SUMMARY | 2025-03-27 14:27 | XMS_ITS | Encounter Summary ---
Author Organization [employer] Address [address] [place] [address] Care Team Providers Care Steam Hand Name Role Phone Mackenzie Estrada MD Primary Care Provider [phone] Casper Magaña RN Unavailable [phone] Ruth Ann Price Unavailable Unavailable Ruth Ann Price Unavailable Reason for Visit * Reason Comments Med Refill Encounter Details Date Type Department Care Team ([facility] st Contact Info) Description 10/10/2024 Refill [facility] MEDICINE [address] [place] [address] Mackenzie Estrada MD [address] [place], [place] [phone] 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 [...] Care Team (Late st Contact Info) Description 05/14/2025 9:45 AM EDT Office Visit [facility] MEDICINE [address] [place] [address] documented as of this encounter Goals Goal [...] as of this encounter Care Teams Steam Hand Relationship Specialty Start Date End Date Mackenzie Estrada MD [address] [place] [address] PCP - General Family Medicine 07/10/20 Casper Magaña, RN [address] [place] [address] Registered Nurse Family Medicine 01/18/25 01/18/25 Ruth Ann Price 02/19/25 02/19/25 Ruth Ann Price 02/19/25 02/28/25 Hemalatha Pretty Medical Numerical Control OperatorBusiness English Instructor 01/02/25 documented as of this encounter
--- OUTSIDE RECORDS SUMMARY | 2025-03-27 14:27 | XMS_ITS | Encounter Summary ---
Author Organization [employer] Address [address] 7[address] [place] [address] Care Team Providers Care Functional Architect Name Role Phone Mackenzie Estrada MD Primary Care Provider [phone] Casper Magaña RN Unavailable [phone] Ruth Ann Price Unavailable Unavailable Ruth Ann Price Unavailable Reason for Visit * Reason Comments Med Refill Encounter Details Date Type Department Care Team ([facility] st Contact Info) Description 10/10/2024 Refill [facility] [address] [place] [address] Kat Yo MD [address] [place] [address] Rheumatoid arthritis involving right hand with positive [...] Description 05/14/2025 9:45 AM EDT Office Visit [facility] MEDICINE [address] [place] [address] documented as of this encounter Goals Goal [...] documented as of this encounter Care Teams Functional Architect Relationship Specialty Start Date End Date Mackenzie Estrada MD [address] [place] [address] PCP - General Family Medicine 07/10/20 Casper Magaña, RN [address] [place] [phone] Registered Nurse Family Medicine 01/18/25 01/18/25 Ruth Ann Price 02/19/25 02/19/25 Ruth Ann Price 02/19/25 02/28/25 Hemalatha Pretty Residential Program WorkerAccordion Tuner 01/02/25 documented as of this encounter
--- OUTSIDE RECORDS SUMMARY | 2025-03-27 14:27 | XMS_ITS | Encounter Summary ---
Author Organization [employer] Address [address] [facility] 7t [place] [address] Care Team Providers Care Vocational Education Professional Name Role Phone Mackenzie Estrada MD Primary Care Provider [phone] Casper Magaña RN Unavailable Ruth Ann Price Unavailable Unavailable Ruth Ann Price Unavailable Reason for Visit * Reason Comments Med Refill Encounter Details Date Type Department Care Team ([facility] st Contact Info) Description 08/19/2024 Refill [facility] MEDICINE [address] [place], [place] [phone] Mackenzie Estrada MD [address] [place], [place] [phone] Social History Tobacco Use Types Packs/Day Years [...] Description 05/14/2025 9:45 AM EDT Office Visit [facility] MEDICINE [address] [place] [address] documented as of this encounter Goals Goal [...] documented as of this encounter Care Teams Vocational Education Professional Relationship Specialty Start Date End Date Mackenzie Estrada MD [address] [place] [address] PCP - General Family Medicine 07/10/20 Casper Magaña, JENNIFER [address] [place] [address] Registered Nurse Family Medicine 01/18/25 01/18/25 Ruth Ann Price 02/19/25 02/19/25 Ruth Ann Price 02/19/25 02/28/25 Hemalatha Pretty Reports Analysis ManagerSubmarine Operator 01/02/25 documented as of this encounter
--- OUTSIDE RECORDS SUMMARY | 2025-03-27 14:27 | XMS_ITS | Encounter Summary ---
Author Organization [employer] Address [address] [facility] 7t [place] [address] Care Team Providers Care Item Processing Clerk Name Role Phone Mackenzie Estrada MD Primary Care Provider [phone] Ruth Ann Price Unavailable Unavailable Ruth Ann Price Unavailable Reason for Visit * Reason Comments Med Refill Encounter Details Date Type Department Care Team ([facility] Contact Info) Description 02/01/2025 Refill [facility] MEDICINE [address] [place] [address] Ebony Daigle MD [address] [place] [address] Social History Tobacco Use Types Packs/Day Years Used Date Smoking Tobacco: Former Cigarettes Passive Smoke Exposure: Never Smokeless Tobacco: Never Alcohol Use Standard Drinks/Week Comments Never 0 (1 standard drink = 0.6 oz pur e alcohol) Alcohol Answer Date Recorded How often do you have a drink containing alcohol ? 0 12/28/2024 Average Number of Drinks Not on file 025 How often do you have six or more drinks on one occasion? 0 12/28/2024 Depression Answer Date Recorded Patient Health Questionnaire-9 [...] Description 05/14/2025 9:45 AM EDT Office Visit [facility] MEDICINE [address] [place] [address] documented as of this encounter Goals Goal [...] documented as of this encounter Care Teams Item Processing Clerk Relationship Specialty Start Date End Date Mackenzie Estrada MD [address] [place] [address] PCP - General Family Medicine 07/10/20 Ruth Ann Price 02/19/25 02/19/25 Ruth Ann Price 02/19/25 02/28/25 Hemalatha Pretty Consumer Insights SpecialistTire Service Technician 01/02/25 documented as of this encounter
--- OUTSIDE RECORDS SUMMARY | 2025-03-27 14:27 | XMS_ITS | Encounter Summary ---
Author Organization [employer] Address [address] [place] [address] Care Team Providers Care State Comptroller Name Role Phone Mackenzie Estrada MD Primary Care Provider [phone] Casper Magaña RN Unavailable [phone] Ruth Ann Price Unavailable Unavailable Ruth Ann Price Unavailable Encounter Details Date Type Department Care Team (Late st Contact Info) Description 12/13/2023 Orders Only [facility] MEDICINE [address] [place] [address] Mackenzie Estrada MD [address] [place], [place] [phone] Pain in both hands Social History Tobacco [...] Description 05/14/2025 9:45 AM EDT Office Visit [facility] MEDICINE [address] [place] [address] documented as of this encounter Goals Goal Patient Goal Type Associated Problems Recent Progress Patient-Stated? Author Quit using tobacco (cigarettes, smokeless, etc) Tobacco Use No Corey Lin, KelechiD documented as of this encounter Visit Diagnoses Diagnosis Pain in both hands documented in this encounter Care Teams State Comptroller Relationship Specialty Start Date End Date Mackenzie Estrada MD [address] [place] [address] PCP - General Family Medicine 07/10/20 Casper Magaña, RN [address] [place] [address] Registered Nurse Family Medicine 01/18/25 01/18/25 Ruth Ann Price 02/19/25 02/19/25 Ruth Ann Price 02/19/25 02/28/25 Hemalatha Pretty Prototype FabricatorDonations Attendant 01/02/25 documented as of this encounter
--- OUTSIDE RECORDS SUMMARY | 2025-03-27 14:27 | XMS_ITS | Clinical Summary ---
Author Organization [facility] Address [address] [place] [address] Care Team Providers Care Supervisor Quality Control Name Role Phone Sanjay Cruz MD Primary Care Pro[facility] Surgical History Surgery Date Site/Laterality Comments OTHER SURGICAL HISTORY 05/12/2020 Right PROCEDURE: [place] BX/EXC LYMPH NODE OPEN SUPERFICIAL; COMMENT: Axillary Lymph Node biopsy- Benign Lymphoid Tissue OTHER SURGICAL HISTORY 12/19/2019 Right PROCEDURE: [place] BX/EXC LYMPH NODE NEEDLE SUPERFICIAL; COMMENT: Axillary Lymph node -results were non daignostic Medical History Medical History Date Comments Anxiety DX:Anxiety Migraine DX:Migraine History of DVT (deep vein thrombosis) 05/23/2020 DX:History of DVT (deep vein thrombosis); COMMENT: 01/2005 Right [facility] current use of anticoagulant 0 DX: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 term 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 care registered 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 current use of anticoagulant Acute deep vein thrombosis ( DVT) of brachial vein of right upper extremity ([facility] V24, [facility] V28) 05/09/2020 DX:Acute deep vein thrombos is (DVT) of brachial vein of right upper extremity (HCC) Axillary lymphadenopathy 05/09/2020 DX:Axil harvinder lymphadenopathy Gastroesophageal reflux disease 05/09/2020 DX:Gastroesophageal reflux disease Personal history of Hodgkin lymphoma 05/09/2020 DX:Personal history of Hodgkin lymphoma Recurrent major depressive d isorder in remission ([facility] V24) 05/09/2020 DX:Recurrent major depressiv e disorder in remission (HCC) Rheumatoid arthritis involvi ng multiple sites ([facility] V24, [facility] V28) 05/09/2020 DX:Rheumatoid arthritis invo lving multiple sites (HCC) Hodgkin's disease, nodular s clerosis, of lymph nodes of multiple sites (CMS/[facility] V24, [facility]/HCC V28) DX:Hodgkin's disease, nodul ar sclerosis, of [...] age to complete this topic Care Teams Supervisor Quality Control Relationship Specialty Start Date End Date Sanjay Cruz MD [address] [place] [id number] PCP - General Internal Medicine 04/09/20
--- OUTSIDE RECORDS SUMMARY | 2025-03-27 14:27 | XMS_ITS | Encounter Summary ---
Author Organization [employer] Address [address] [facility] 7t [place] [address] Care Team Providers Care Simulation Educator Name Role Phone Mackenzie Estrada MD Primary Care Provider [phone] Casper Magaña RN Unavailable [phone] Ruth Ann Price Unavailable Unavailable Ruth Ann Price Unavailable Reason for Visit * Reason Comments Med Refill Encounter Details Date Type Department Care Team ([facility] st Contact Info) Description 11/18/2023 Refill [facility] MED[facility]INE [address] [place], [place] [phone] Mackenzie Estrada MD [address] [place], [place] [phone] Pain in both hands Social History Tobacco [...] Description 05/14/2025 9:45 AM EDT Office Visit [facility] MED[facility]INE [address] [place] [address] documented as of this encounter Goals Goal Patient Goal Type Associated Problems Recent Progress Patient-Stated? Author Quit using tobacco (cigarettes, smokeless, etc) Tobacco Use Corey Cornell, Bailey documented as of this encounter Visit Diagnoses Diagnosis Pain in both hands documented in this encounter Care Teams Simulation Educator Relationship Specialty Start Date End Date Mackenzie Estrada MD [address] [place] [address] PCP - General Family Medicine 07/10/20 Casper Magaña, JENNIFER [address] [place] [address] Registered Nurse Family Medicine 01/18/25 01/18/25 Ruth Ann Price 02/19/25 02/19/25 Ruth Ann Price 02/19/25 02/28/25 Hemalatha Pretty Natural Gas Treating Unit OperatorBag Machine Operator Helper 01/02/25 documented as of this encounter
--- OUTSIDE RECORDS SUMMARY | 2025-03-27 14:27 | XMS_ITS | Encounter Summary ---
Author Organization [employer] Address [address] [facility] 7t [place] [address] Care Team Providers Care Preparer Samples And Repairs Name Role Phone Mackenzie Estrada MD Primary Care Provider [phone] Casper Magaña RN Unavailable [phone] Ruth Ann Price Unavailable Unavailable Ruth Ann Price Unavailable Reason for Referral * Imaging (Routine) - Closed Specialty Diagnoses / Procedures Referred By Contac t Referred To Contact Radiology Diagnoses Abnormal ultrasound of pelvis Procedures MR Pelvis w/ and w/o Contrast Mackenzie Estrada MD [address] [place] [address] Phone: tel: fax: [address] Phone: tel: fax: Referral ID Status Reason Start Date Expiration Date Visits Re quested Visits Authorized [id number] Closed 10/31/2023 10/30/2024 1 1 Encounter Details Date Type Department Care Team (Late st Contact Info) Description 10/31/2023 Orders Only [facility] MEDICINE [address] [place], [place] [phone] Mackenzie Estrada MD [address] [place], [place] [phone] Abnormal ultrasound of pelvis (Primary Dx) Social [...] which I need to talk to her steam shovel operator about. Thank you! documented in this encounter Plan of Treatment Upcoming Encounters Date Type Department Care Team (Late st Contact Info) Description 05/14/2025 9:45 AM EDT Office Visit [facility] MEDICINE [address] [place] [address] documented as of this encounter Goals Goal [...] PM EDT Narrative 12/07/2023 9:11 AM EDT [address] [address] Magnetic Resonance Report Signed Patient: Ginette Arceo MR #: [id number] : 1975 Acct:[id number] Age/Sex: 48 / F ADM Date: 11/25/23 Loc: .MRI Attending Dr: Mackenzie Estrada MD Ordering Physician: Mackenzie Estrada Date of Service: 11/25/23 Procedure(s): MR pelvis wo/w con Accession Number(s): [id number] cc: Mackenzie Estrada EXAMINATION: MR PELVIS WITHOUT [...] measures 7.8 x 3.6 x 4.3 cm (xhbdaw-gr-leywgs x AP x transverse dimension). The junctional [...] common iliac artery on CT angiography from 0 04/21 2023. The iliac veins are normal. No pathologic [...] in OV> 12/07/23 0907 DD/ 1505 TD/TT: Harm Reduction Worker: Procedure Note Donotuseinterpreter, Image - 12/07/[address] [address] Magnetic Resonance Report Signed Patient: Ginette Arceo #: [id number] : 1975Acct:[id number] Age/Sex: 48 / FADM Date: 11/25/23 Loc: HO.MRI Attending Dr: Mackenzie Estrada MD Ordering Physician: Mackenzie Estrada Date of Service: 11/25/23 Procedure(s): MR pelvis wo/w con Accession Number(s): [id number] cc: Mackenzie Estrada EXAMINATION: MR PELVIS WITHOUT [...] measures 7.8 x 3.6 x 4.3 cm (wosndi-xd-dlkloy x AP x transverse dimension). The junctional [...] in OV> 12/07/23 0907 DD/ 1505 TD/TT: Harm Reduction Worker: PD us Mackenzie Estrada MD IMG MRI PROCEDURES Final Resul t documented in this encounter Visit Diagnoses Diagnosis Abnormal ultrasound of pelvis- Primary documented in this encounter Care Teams Preparer Samples And Repairs Relationship Specialty Start Date End Date Mackenzie Estrada MD [address] [place] [address] PCP - General Family Medicine 07/10/20 Casper Magaña, RN [address] [place] [address] Registered Nurse Family Medicine 01/18/25 01/18/25 Ruth Ann Price 02/19/25 02/19/25 Ruth Ann Price 02/19/25 02/28/25 Hemalatha Pretty Music Department ChairGate Supervisor 01/02/25 documented as of this encounter
--- OUTSIDE RECORDS SUMMARY | 2025-03-27 14:27 | XMS_ITS | Encounter Summary ---
Author Organization [employer] Address [address] [facility] 7t [place] [address] Care Team Providers Care Scrub Woman Name Role Phone Mackenzie Estrada MD Primary Care Provider [phone] Ruth Ann Price Unavailable Unavailable Ruth Ann Price Unavailable Reason for Visit * Reason Comments Med Refill Encounter Details Date Type Department Care Team ([facility] Contact Info) Description 01/24/2025 Refill [facility] MEDICINE [address] [place] [address] Ebony Daigle MD [address] [place] [address] Rheumatoid arthritis involving multiple sites with positive rheumatoid factor ([facility]/HCC) Social History Tobacco Use Types Packs/Day Years [...] Office Visit [facility] MEDICINE [address] [place] [address] documented as of this encounter Goals Goal Patient Goal Type Associated Problems Recent Progress Patient-Stated? 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) documented in this encounter Additional Health Concerns Assessment Noted Time PHQ-9 Depression Total Score: 2 04/30/20 24 10:41 AM EDT documented as of this encounter Care Teams Scrub Woman Relationship Specialty Start Date End Date Mackenzie Estrada MD [address] [place] [address] PCP - General Family Medicine 07/10/20 Ruth Ann Price 02/19/25 02/19/25 Ruth Ann Price 02/19/25 02/28/25 Hemalatha Pretty Capsule InspectorDirector Of Digital Technology 01/02/25 documented as of this encounter
--- OUTSIDE RECORDS SUMMARY | 2025-03-27 14:27 | XMS_ITS | Encounter Summary ---
Author Organization [employer] Address [address] [facility] 7t [place] [address] Care Team Providers Care Paving Stone Installer Name Role Phone Mackenzie Estrada MD Primary Care Provider [phone] Casper Magaña RN Unavailable [phone] Ruth Ann Price Unavailable Unavailable Ruth Ann Price Unavailable Reason for Visit * Reason Comments Med Refill Encounter Details Date Type Department Care Team ([facility] st Contact Info) Description 02/08/2023 Refill [facility] MEDICINE [address] [place] [address] Mackenzie Estrada MD [address] [place], [place] [phone] Pain in both hands Social History Tobacco [...] Description 05/14/2025 9:45 AM EDT Office Visit [facility] MEDICINE [address] [place] [address] documented as of this encounter Visit Diagnoses Diagnosis Pain in both hands documented in this encounter Care Teams Paving Stone Installer Relationship Specialty Start Date End Date Mackenzie Estrada MD [address] [place] [address] PCP - General Family Medicine 07/10/20 Casper Magaña, JENNIFER [address] [place] [address] Registered Nurse Family Medicine 01/18/25 01/18/25 Ruth Ann Price 02/19/25 02/19/25 Ruth Ann Price 02/19/25 02/28/25 Hemalatha Pretty Supplier Quality SpecialistPress Set Up 01/02/25 documented as of this encounter
--- OUTSIDE RECORDS SUMMARY | 2025-03-27 14:27 | XMS_ITS | Encounter Summary ---
Author Organization [employer] Address [address] [facility] [address] 7t [place] [address] Care Team Providers Care Humid System Operator Name Role Phone Mackenzie Estrada MD Primary Care Provider [phone] Ruth Ann Price Unavailable Unavailable Ruth Ann Price Unavailable Reason for Visit * Reason Comments Med Refill Encounter Details Date Type Department Care Team ([facility] Contact Info) Description 01/24/2025 Refill [facility] [address] [place] [address] Kat Yo MD [address] [place] [address] Rheumatoid arthritis involving right hand with positive [...] 9:45 AM EDT Office Visit [facility] MEDICINE [address] [place] [address] documented as of this encounter Goals Goal [...] documented as of this encounter Care Teams Humid System Operator Relationship Specialty Start Date End Date Mackenzie Estrada MD [address] [place] [address] PCP - General Family Medicine 07/10/20 Ruth Ann Price 02/19/25 02/19/25 Ruth Ann Price 02/19/25 02/28/25 Hemalatha Pretty Metal TempererReactor Kettle Operator 01/02/25 documented as of this encounter
--- OUTSIDE RECORDS SUMMARY | 2025-03-27 14:27 | XMS_ITS | Encounter Summary ---
Author Organization [employer] [facility] Address [address] [facility] 7t [place] [address] Care Team Providers Care Small Offset Printer Name Role Phone Mackenzie Estrada MD Primary Care Provider [phone] Casper Magaña RN Unavailable [phone] Ruth Ann Price Unavailable Unavailable Ruth Ann Price Unavailable Reason for Visit * Reason Comments Med Refill Encounter Details Date Type Department Care Team ([facility] Contact Info) Description 12/10/2022 Refill [facility] MEDICINE [address] [place] [address] Mackenzie Estrada MD [address] [place], [place] [phone] Pain in both hands Social History Tobacco [...] Upcoming Encounters Date Type Department Care Team ([facility] Contact Info) Description 05/14/2025 9:45 AM EDT Office Visit [facility] MEDICINE [address] [place] [address] documented as of this encounter Visit Diagnoses Diagnosis Pain in both hands documented in this encounter Care Teams Small Offset Printer Relationship Specialty Start Date End Date Mackenzie Estrada MD [address] [place] [address] PCP - General Family Medicine 07/10/20 Casper Magaña, JENNIFER [address] [place] [address] Registered Nurse Family Medicine 01/18/25 01/18/25 Ruth Ann Price 02/19/25 02/19/25 Ruth Ann Price 02/19/25 02/28/25 Hemalatha Pretty Assembler Golf Wood HeadLock Tender Chief Operator 01/02/25 documented as of this encounter
--- OUTSIDE RECORDS SUMMARY | 2025-03-27 14:27 | XMS_ITS | Encounter Summary ---
Author Organization [employer] Address [address] [facility] [address] 7t [place] [address] Care Team Providers Care Video Tape Transferrer Name Role Phone Mackenzie Estrada MD Primary Care Provider [phone] Casper Magaña RN Unavailable [phone] Ruth Ann Price Unavailable Unavailable Ruth Ann Price Unavailable Encounter Details Date Type Department Care Team (Late st Contact Info) Description 10/03/2023 Orders Only [facility] MEDICINE [address] [place], [place] [phone] Mackenzie Estrada MD [address] [place], [place] [phone] Bacterial vaginosis (Primary Dx) Social History Tobacco [...] Description 05/14/2025 9:45 AM EDT Office Visit [facility] MEDICINE [address] [place] [address] documented as of this encounter Goals Goal Patient Goal Type Associated Problems Recent Progress Patient-Stated? Author Quit using tobacco (cigarettes, smokeless, etc) Tobacco Use Corey Cornell, Bailey documented as of this encounter Visit Diagnoses Diagnosis Bacterial vaginosis- Primary Unspecified vaginitis and vulvovaginitis documented in this encounter Care Teams Video Tape Transferrer Relationship Specialty Start Date End Date Mackenzie Estrada MD [address] [place] [address] PCP - General Family Medicine 07/10/20 Casper Magaña, JENNIFRE [address] [place] [address] Registered Nurse Family Medicine 01/18/25 01/18/25 Ruth Ann Price 02/19/25 02/19/25 Ruth Ann Price 02/19/25 02/28/25 Hemalatha Pretty Physical Science ProfessorCommunity Health Coordinator 01/02/25 documented as of this encounter
--- OUTSIDE RECORDS SUMMARY | 2025-03-27 14:27 | XMS_ITS | Encounter Summary ---
Author Organization [employer] [facility] Address [address] [facility] 7t h Floor [place] [phone] Care Team Providers Care Co Director Name Role Phone aMckenzie Estrada MD Primary Care Provider [phone] Casper Magaña RN Unavailable [phone] Ruth Ann Price Unavailable Unavailable Ruth Ann Price Unavailable Encounter Details Date Type Department Care Team ([facility] Contact Info) Description 03/04/2023 Orders Only [facility] MEDICINE [address] [place] [address] Kat Yo MD [address] [place] [phone] Social History Tobacco Use Types Packs/Day Years [...] Department Care Team (Late Contact Info) Description 05/14/2025 9:45 AM EDT Office Visit [facility] MEDICINE [address] [place] [phone] documented as of this encounter Visit Diagnoses Not on filedocumented in this encounter Care Teams Co Director Relationship Specialty Start Date End Date Mackenzie Estrada MD [address] [place] [address] PCP - General Family Medicine 07/10/20 Casper Magaña, RN [address] [place] [address] [place] [address] Registered Nurse Family Medicine 01/18/25 01/18/25 Ruth Ann Price 02/19/25 02/19/25 Ruth Ann Price 02/19/25 02/28/25 Hemalatha Pretty Brim StiffenerMilitary Pay Technician 01/02/25 documented as of this encounter
--- NOTE | 2025-03-27 14:28 | MHC.OFFVIS ---
Vital Signs 03/27/25 14:30 Height 5 ft 6 in Weight 188 lb 11.451 oz BMI 30.5 BP 100/62 Blood Pressure Location Lt brachial Position Sitting Pulse 60 Pulse Source Monitor Intake Visit Reasons: r/s 01/09/25 3 mos f/u echo Intake Note: 3 mth f/up-echo Electrical Inspector Required: Yes Electrical Inspector Name: voyce/romanian/ Accompanied by: Self / Same As Patient Allergies almond (ALMONDS) Allergy (Severe, Verified 03/08/25 13:46) ANAPHYLAXIS adhesive tape (ADHESIVE TAPE) Allergy (Intermediate, Verified 03/08/25 13:46) RASH morphine (MORPHINE) Allergy (Intermediate, Verified 03/08/25 13:46) GI UPSET, difficulty breathing leflunomide Adverse Reaction (Intermediate, Verified 03/08/25 13:46) twitching tramadol (TRAMADOL) Adverse Reaction (Unknown, Verified 03/08/25 13:46) NAUSEA & VOMITING Medication List - Last Reconciled 03/27/25 by Ruddy Larios MD acetaminophen (Tylenol Extra Strength) 1,000 mg (2 x 500 mg) PO Q8H PRN albuterol sulfate 90 mcg/actuation 2 puffs inhalation Q6H PRN alprazolam 1 mg PO BEDTIME PRN apixaban (Eliquis) 5 mg PO BID ascorbic acid (vitamin C) (Vitamin C) 1,000 mg (2 x 500 mg) PO QAM atorvastatin 80 mg PO DAILY cetirizine 10 mg PO QAM cholecalciferol (vitamin D3) (Vitamin D3) 25 mcg PO DAILY clopidogrel 75 mg PO DAILY docusate sodium 100 mg PO BID famotidine 20 mg PO BID ferrous sulfate 325 mg PO QAM gabapentin 400 mg PO TID metoprolol succinate ER 50 mg PO DAILY nicotine 1 patch topical QAM prednisone 20 mg PO DAILY risperidone 0.5 mg PO DAILY PRN sertraline (Zoloft) 75 mg PO DAILY sulfamethoxazole-trimethoprim 400-80 mg (Bactrim) 1 tab PO DAILY trazodone 150 mg PO BEDTIME PRN umeclidinium 62.5 mcg/actuation (Incruse Ellipta) 1 inh inhalation DAILY ursodiol 250 mg PO BID vitamin A 1 cap PO QAM HPI Comments Details: Pleasant 49 year female who is here for follow-up. She was seen in the hospital last year when she presented with chest discomfort and ruled in for NSTEMI. She has background history of rheumatoid arthritis and previous peripheral vascular disease with right SFA angioplasty. Cardiac catheterization showed plaque rupture in the LAD and this was treated with a drug-eluting stent. She also has background of DVT and was on apixaban. She has been on apixaban and clopidogrel since then. She was getting mild rectal bleed went more recently has not had any bleeding. She is denying any chest discomfort. She has some neck pain and arm discomfort related to neck issues. Blood pressure is well controlled. At the time she had mild NSTEMI-LV function was mildly reduced. 03/27/2025: She is here for follow-up. She had repeat echocardiography in September 2024 showing EF 55-60%. Basal inferior wall was akinetic. She is denying any significant symptoms currently. She had 1 episode of chest pain at nighttime 3 days ago which has not recurred. She did not have any similar discomfort with ACS presentation. She is on anticoagulation for DVT and on Plavix for previous PCI. She is smoking 1 cigarette per day and we discussed about smoking cessation in detail. [facility], [facility] Medical History PAD (peripheral artery disease) Skin lesion Anxiety Achilles tendinitis Superficial femoral artery occlusion Knee pain, left Depression Hx of peripheral pulmonary artery stenosis History of chemotherapy Cancer of heart Bone cancer Lung cancer Iron deficiency Seropositive rheumatoid arthritis Bleeding hemorrhoid Degeneration, intervertebral disc, lumbar Chronic GERD Degeneration of intervertebral disc at C4-C5 level Osteoarthritis of spine with radiculopathy, lumbar region Fibromyalgia Esophageal dysphagia Vitamin D deficiency Systemic lupus erythematosus Seropositive rheumatoid arthritis Rheumatoid arthritis involving multiple sites Gallstones Stress incontinence in female Nocturia Urgency-frequency syndrome De Quervain's disease (tenosynovitis) Depressive disorder Acute arthritis Hodgkin disease Surgical History History of heart surgery History of surgical removal of skin lesion (~07/13/23) History of angioplasty of vein History of biopsy H/O tubal ligation Hx of endoscopy Hx laparoscopic cholecystectomy Hx of colonoscopy History of esophagogastroduodenoscopy (EGD) History of repair of inguinal hernia History of lymph node dissection of left axilla Family History Maternal Grandmother Ovarian cancer Social History Household Members: Significant Other Housing: Apartment Are you a primary child care sitter to a significant other at home: No Unable to assess alcohol history related to: Unknown Alcohol intake: never Comment: son at bedside Patient Tobacco Use Status: Never used Tobacco Tobacco use type: Cigarette Cigarette Packs Per Day: 1 Cigarettes Per Day: 20.0 Substance Use Type: Marijuana Advance Directives Date on File: 02/24/24 service: No Current occupational status: disabled 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 of Systems Const Denies chills, Denies fatigue, Denies fever(s), Denies frequent falls, Reports weakness, Denies weight gain and Denies weight loss ENT Reports dizziness Card Reports chest pain, Denies leg edema, Denies lightheadedness, Denies palpitations, Denies dyspnea and Denies dyspnea on exertion Resp Denies cough, Denies dyspnea and Denies dyspnea on exertion GI Denies hematochezia Musc Denies abnormal gait, Denies muscle weakness, Denies numbness, Denies radiating pain into limb and Denies tingling Neuro Denies abnormal gait, Reports dizziness, Denies frequent falls, Denies numbness, Denies tingling and Reports weakness Endo Denies fatigue and Denies palpitations Physical Exam Vital Signs: Last Vital Signs Pulse 60 03/27/25 14:30 BP 100/62 03/27/25 14:30 BMI result Body Mass Index 30.5 GENERAL APPEARANCE: in no acute distress, pleasant. NECK: no carotid bruit, no jugular venous distention. SKIN: no suspicious lesions, warm and dry. HEART: no murmurs, regular rate and rhythm. LUNGS: clear to auscultation bilaterally. ABDOMEN: soft, nontender. EXTREMITIES: no edema. PERIPHERAL PULSES: equal. NEUROLOGIC: No gross deficits, AAO X 3 Office Procedures EKG Details: Normal sinus rhythm 60 beats per minute, left axis deviation, QTC 420 milliseconds. [id number], Complete Assessment & Plan Assessment & Plan (1) NSTEMI (non-ST elevated myocardial infarction): Code(s): I21.4 - Non-ST elevation (NSTEMI) myocardial infarction Category: Medical Plan Pleasant 49 year female who is here for follow-up. She has known history of coronary artery disease and presented with NSTEMI and underwent cardiac catheterization where she had LAD PCI performed. She also had a DVT and was on Eliquis and was started on Plavix and has been using Plavix and Eliquis combination. Aspirin has been stopped. Tolerating medications well and doing reasonably well at this point clinically. We discussed about smoking cessation which is important for with a history of DVT and coronary disease. Follow up will be in 4 months. Thank you for allowing me to participate in the care of your patient. Please feel free to contact me if you have any questions. Coding Level of Care Code Est Pt Level 4 (92493) Diagnoses NSTEMI (non-ST elevated myocardial infarction) I21.4 CPT Codes EKG - CPT: 53660-[id number], Complete ([id number])
--- OUTSIDE RECORDS SUMMARY | 2025-03-27 14:28 | XMS_ITS | Encounter Summary ---
Author Organization [employer] Address [address] [facility] 7t [place] [address] Care Team Providers Care Stone Mason Name Role Phone Mackenzie Estrada MD Primary Care Provider [phone] Casper Magaña RN Unavailable [phone] Ruth Ann Price Unavailable Unavailable Ruth Ann Price Unavailable Reason for Visit * Reason Onset Date Comments Error 08/16/2023 Encounter Details Date Type Department Care Team ([facility] st Contact Info) Description 08/16/2023 Telephone [facility] MEDICINE [address] [place] [address] Mackenzie Estrada MD [address] [place] [address] Error Social History Tobacco Use Types Packs/Day [...] Description 05/14/2025 9:45 AM EDT Office Visit [facility] MEDICINE [address] [place] [address] documented as of this encounter Goals Goal Patient Goal Type Associated Problems Recent Progress Patient-Stated? Author Quit using tobacco (cigarettes, smokeless, etc) Tobacco Use Corey Cornell, Bailey documented as of this encounter Visit Diagnoses Not on filedocumented in this encounter Care Teams Stone Mason Relationship Specialty Start Date End Date Mackenzie Estrada MD [address] [place] [address] PCP - General Family Medicine 07/10/20 Casper Magaña, JENNIFER [address] [place] [address] Registered Nurse Family Medicine 01/18/25 01/18/25 Ruth Ann Price 02/19/25 02/19/25 Ruth Ann Price 02/19/25 02/28/25 Hemalatha Pretty Electrifier OperatorReed Press Feeder 01/02/25 documented as of this encounter
--- OUTSIDE RECORDS SUMMARY | 2025-03-27 14:28 | XMS_ITS | Encounter Summary ---
Author Organization [employer] Address [address] [facility] 7t [place] [address] Care Team Providers Care Vocational Rehabilitation Teacher Name Role Phone Mackenzie Estrada MD Primary Care Provider Casper Magaña RN Unavailable [phone] Ruth Ann Price Unavailable Unavailable Ruth Ann Price Unavailable Reason for Visit * Reason Comments Med Refill Encounter Details Date Type Department Care Team ([facility] st Contact Info) Description 01/12/2024 Refill [facility] MEDICINE [address] [place], [place] [phone] Mackenzie Estrada MD [address] [place], [place] [phone] Rheumatoid arthritis involving multiple sites with positive rheumatoid factor ([facility]) Social History Tobacco Use Types Packs/Day Years [...] the past 12 months, has t he [employer], gas, oil or water company threatened to [...] Description 05/14/2025 9:45 AM EDT Office Visit [facility] MEDICINE [address] [place] [address] documented as of this encounter Goals Goal Patient Goal Type Associated Problems Recent Progress Patient-Stated? Author Quit using tobacco (cigarettes, smokeless, etc) Tobacco Use Corey Cornell, KelechiD documented as of this encounter Visit Diagnoses Diagnosis Rheumatoid arthritis involving multiple sites with positive rheumatoid factor (CMS/HCC) documented in this encounter Care Teams Vocational Rehabilitation Teacher Relationship Specialty Start Date End Date Mackenzie Estrada MD [address] [place] [address] PCP - General Family Medicine 07/10/20 Casper Magaña, JENNIFER [address] [place] [address] Registered Nurse Family Medicine 01/18/25 01/18/25 Ruth Ann Price 02/19/25 02/19/25 Ruth Ann Price 02/19/25 02/28/25 Hemalatha Pretty Compliance Review SpecialistGarment Parts Cutter Machine 01/02/25 documented as of this encounter
--- OUTSIDE RECORDS SUMMARY | 2025-03-27 14:28 | XMS_ITS | Encounter Summary ---
Author Organization [employer] Address [address] [place] [address] Care Team Providers Care Complex Human Resources Manager Name Role Phone Mackenzie Estrada MD Primary Care Provider [phone] Casper Magaña RN Unavailable Ruth Ann Price Unavailable Unavailable Ruth Ann Price Unavailable Encounter Details Date Type Department Care Team (Late st Contact Info) Description 06/03/2023 Orders Only [facility] MEDICINE [address] [place] [address] Mackenzie Estrada MD [address] [place], [place] [phone] Pain in both hands Social History Tobacco [...] Description 05/14/2025 9:45 AM EDT Office Visit [facility] MED[facility]INE [address] [place] [phone] documented as of this encounter Goals Goal [...] PM EST Narrative 06/03/2023 5:47 PM EDT [address] [address] XRay Report Signed Patient: Ginette Arceo MR #: [id number] : 1975 Acct:[id number] Age/Sex: 47 / F ADM Date: 06/25/23 Loc: .ED Attending Dr: Ordering Physician: Treasure Clemons Date of Service: 06/25/23 Procedure(s): XR chest 2V Accession Number(s): [id number] cc: Mackenzie Estrada; Treasure Clemons EXAMINATION: XR [...] in OV> 06/25/23 1230 DD/ 1215 TD/TT: Video Producer: [facility] [place], [place] Procedure Note Donotuseinterpreter, Image - 06/25/[address] [address] XRay Report Signed Patient: Ginette ArceoMR #: [id number] : 1975Acct:[id number] Age/Sex: 47 / FADM Date: 06/25/23 Loc: .ED Attending Dr: Ordering Physician: Treasure Clemons Date of Service: 06/25/23 Procedure(s): XR chest 2V Accession Number(s): [id number] cc: Mackenzie Estrada; Treasure Clemons EXAMINATION: XR [...] in OV> 06/25/23 1230 DD/ 1215 TD/TT: Video Producer: MAGG[facility] External Provider IMG XR PROCEDURES Edited Result - Final * (ABNORMAL) Urinalysis, Complete, with Reflex to Culture (06/03/2023 4:49 PM EDT) Color Urine Yellow [facility] Appearance Urine Clear [facility] PH 5.5 5.0 - 9.0 [facility] Glucose Urine UA Negative Negative mg/dL [facility] Urine Blood Large (3+)(A) Negative [facility] Specific [place] - Urine 1.025 1.005 - 1.025 [facility] Urine Protein Negative Neg-Trace mg/dL [facility] Urine Ketones Negative Negative mg/dL [facility] Nitrite Urine Negative Negative [facility] Leukocyte Esterase Urine Negative Negative [facility] RBC Urine >20(A) 0 - 2 /HPF [facility] Urine WBC 0-5 0 - 5 /HPF [facility] Urine Squamous Epithelial Cell 11-20 0 - 2 /HPF [facility] Urine Bacteria 1+ None Seen [facility] Hyaline Casts, Urine 0-2 0 - 2 /LPF [facility] 06/03/2023 4:49 PM EDT 06/03/2023 4:52 PM EDT Narrative [facility] - 06/03/2023 5:00 PM EDT Urine, Clean Catch Generic External Data Provider LAB URINE ORDERAB LES Final Result [facility] [address] [place] [phone] * (ABNORMAL) Urinalysis w/reflex microscopic (06/03/2023 4:49 PM EDT) Color Urine Yellow [facility] Appearance Urine Clear [facility] PH 5.5 5.0 - 9.0 [facility] Glucose Urine UA Negative Negative mg/dL [facility] Urine Blood Large (3+)(A) Negative [facility] Specific [place] - Urine 1.025 1.005 - 1.025 [facility] Urine Protein Negative Neg-Trace mg/dL [facility] Urine Ketones Negative Negative mg/dL [facility] Nitrite Urine Negative Negative [facility] Leukocyte Esterase Urine Negative Negative [facility] 06/03/2023 4:49 PM EDT 06/03/2023 4:52 PM EDT Narrative [facility] - 06/03/2023 4:57 PM EDT Urine, Clean Catch us Generic External Data Provider LAB URINE ORDERAB LES Final Result [facility] [address] [place] [phone] * Influenza A B2 ID NOW ([place]) (06/03/2023 4:34 PM EDT) IDNOW SERIAL# [id number] [facility] Influenza A Negative Negative [facility] Influenza B2 Negative Negative [facility] Influenza A B2 Note See Note [facility] Comment:The Corona ID NOW In [...] LAB MICROBIOLOGY - GENERAL ORDERABLES Final Result Performing Organization Address [facility] Co de Phone Number [facility] [address] [place] [phone] * COVID-19 ID NOW ([place]) (06/03/2023 4:34 PM EDT) IDNOW SERIAL# [id number] [facility] COVID-19 TEST Negative Negative [facility] COVID-19 NOTE See Note [facility] Comment: Results are for the identification of SARS-CoV2 RNA. TheSARS-CoV2 RNA is generally detectable in respiratory samplesduring the acute phase of infection. Positive results areindicative of the presence of SARS-CoV-2 RNA; clinicalcorrelation with patient history and other diagnosticinformation is necessary to determine patient infectionstatus. Positive results do not rule out bacterial infectionor co- infection with other viruses.Testing facilities within the [facility] and [facility] are required to report all positive results [...] use by authorized laboratories.Testing performed on the Corona ID NOW utilizing NAAT. 06/03/2023 4:34 PM EDT 06/03/2023 4:40 PM EDT us Generic External Data Provider LAB MOLECULAR ARNAV GNOSTICS ORDERABLES Final Result Performing Organization Address City/[facility]/ZIP Co de Phone Number [facility] [address] [place] [phone] documented in this encounter Visit Diagnoses Diagnosis Pain in both hands documented in this encounter Care Teams Complex Human Resources Manager Relationship Specialty Start Date End Date Mackenzie Estrada MD [address] [place] [address] PCP - General Family Medicine 07/10/20 Casper Magaña RN [address] [place] [phone] Registered Nurse Family Medicine 01/18/25 01/18/25 Ruth Ann Price 02/19/25 02/19/25 Ruth Ann Price 02/19/25 02/28/25 Hemalatha Pretty [employer] Prom[employer] SpecialistStore Grocery Merchandiser 01/02/25 documented as of this encounter
--- OUTSIDE RECORDS SUMMARY | 2025-03-27 14:28 | XMS_ITS | Encounter Summary ---
Author Organization [employer] Address [address] [facility] [address] [place] [address] Care Team Providers Care Cigarette Paper Tester Name Role Phone Mackenzie Estrada MD Primary Care Provider [phone] Casper Magaña RN Unavailable Ruth Ann Price Unavailable Unavailable Ruth Ann Price Unavailable Reason for Visit * Reason Comments Med Refill Encounter Details Date Type Department Care Team ([facility] st Contact Info) Description 07/28/2022 Refill [facility] MEDICINE [address] [place] [address] Mackenzie Estrada MD [address] [place], [place] [phone] Pain in both hands Social History Tobacco [...] 05/14/2025 9:45 AM EDT Office Visit [facility]INE [address] [place] [address] documented as of this encounter Visit Diagnoses Diagnosis Pain in both hands documented in this encounter Care Teams Cigarette Paper Tester Relationship Specialty Start Date End Date Mcakenzie Estrada MD [address] [place] [address] PCP - General Family Medicine 07/10/20 Casper Magaña RN [address] [place] [phone] Registered Nurse Family Medicine 01/18/25 01/18/25 Ruth Ann Price 02/19/25 02/19/25 Ruth Ann Price 02/19/25 02/28/25 Hemalatha Pretty Ladies Suit OperatorConstruction Code Administrator 01/02/25 documented as of this encounter
--- OUTSIDE RECORDS SUMMARY | 2025-03-27 14:28 | XMS_ITS | Encounter Summary ---
Author Organization [employer] Address [address] [facility] [address]t [place] [address] Care Team Providers Care Metalizing Machine Operator Automatic Name Role Phone Mackenzie Estrada MD Primary Care Provider Casper Magaña RN Unavailable [phone] Ruth Ann Price Unavailable Unavailable Ruth Ann Price Unavailable Reason for Visit * Reason Comments Med Refill Encounter Details Date Type Department Care Team ([facility] st Contact Info) Description 07/21/[address] [facility] MEDICINE [address] [place] [address] Mark Yang MD [address] [place] [address] Pain in both hands Social History Tobacco [...] Description 05/14/2025 9:45 AM EDT Office [address] [facility] MEDICINE [address] [place] [address] documented as of this encounter Goals Goal Patient Goal Type Associated Problems Recent Progress Patient-Stated? Author Quit using tobacco (cigarettes, smokeless, etc) Tobacco Use Corey Cornell, [place] documented as of this encounter Visit Diagnoses Diagnosis Pain in both hands documented in this encounter Care Teams Metalizing Machine Operator Automatic Relationship Specialty Start Date End Date Mackenzie Estrada MD [address] [place] [address] PCP - General Family Medicine 07/10/20 Casper Magaña, JENNIFER [address] [place] [address] Registered Nurse Family Medicine 01/18/25 01/18/25 Ruth Ann Price 02/19/25 02/19/25 Ruth Ann Price 02/19/25 02/28/25 Hemalatha Pretty Search Engine Optimization AnalystSupport Services Rep 01/02/25 documented as of this encounter
--- OUTSIDE RECORDS SUMMARY | 2025-03-27 14:28 | XMS_ITS | Encounter Summary ---
Author Organization [employer] Address [address] [facility] [address] [place] [address] Care Team Providers Care Brick Machine Operator Name Role Phone Mackenzie Estrada MD Primary Care Provider [phone] Casper Magaña RN Unavailable [phone] Ruth Ann Price Unavailable Unavailable Ruth Ann Price Unavailable Reason for Visit * Reason Comments Med Refill Encounter Details Date Type Department Care Team ([facility] st Contact Info) Description 06/01/2023 Refill [facility] MEDICINE [address] [place], [place] [phone] Mackenzie Estrada MD [address] [place], [place] [phone] Pain in both hands Social History Tobacco [...] Description 05/14/2025 9:45 AM EDT Office Visit [facility] MEDICINE [address] [place] [address] documented as of this encounter Goals Goal Patient Goal Type Associated Problems Recent Progress Patient-Stated? Author Quit using tobacco (cigarettes, smokeless, etc) Tobacco Use Corey Cornell, [place] documented as of this encounter Visit Diagnoses Diagnosis Pain in both hands documented in this encounter Care Teams Brick Machine Operator Relationship Specialty Start Date End Date Mackenzie Estrada MD [address] [place] [address] PCP - General Family Medicine 07/10/20 Casper Magaña, JENNIFER [address] [place] [address] Registered Nurse Family Medicine 01/18/25 01/18/25 Ruth Ann Price 02/19/25 02/19/25 Ruth Ann Price 02/19/25 02/28/25 Hemalatha Pretty Corn Cutter OperatorDial Buffer 01/02/25 documented as of this encounter
--- OUTSIDE RECORDS SUMMARY | 2025-03-27 14:28 | XMS_ITS | Clinical Summary ---
Author Organization [employer] Address [address] [facility] [address] [place] [address] Care Team Providers Care Policy Specialist Name Role Phone Mackenzie Estrada MD Primary Care Provider [phone] Allergies Active Allergy Reactions Criticality Noted Date Comments [place] (Diagnostic) 05/23/2020 [place] Oil Anaphylaxis High 07/19/2022 Morphine 06/02/2015 Other [...] 05/26/20 22 Active Sharps Container (GUARDIAN [employer]) misc 06/15/20 22 Active Vitamin D High Potency 25 MCG (1000 UT) capsule Take 25 mcg by mouth in the morning. 12/11/19 23 Active beta carotene (vitamin A) 3 MG (53770 UT) capsule Take by mouth in the morning. 12/22/19 Active albuterol (Ventolin HFA) 108 (90 Base) MCG/ACT inhalerIndicat ions:Viral upper respiratory tract infection INHALE 2 PUFFS EVERY 4 HOURS NEEDED FOR WHEEZING OR SHORTNESS OF BREATH 18 g 11 06/20/20 Active docusate sodium (Colace) 100 MG capsule TAKE 1 CAPSULE BY MOUTH AT BEDTIME NEEDED 90 capsule 3 03/28/20 24 Active methotrexate 2.5 MG tablet TAKE 10 TABLETS BY MOUTH EVERY WEEK 02/24/20 24 Active Umeclidinium [place] (Incruse Ellipta) 62.5 MCG/ACT aerosol powderIndicati ons:Subacute [...] per day. 90 tablet 3 07/03/20 24 Active metoprolol succinate XL (Toprol-XL) 50 MG [...] MG tabletIndicati ons:NSTEMI (non-ST elevated myocardial infarction) ([facility]) Take 1 tablet (75 mg) by mouth Once per day. 90 tablet 3 09/28/19 25 026 Active Diclofenac Sodium 1 % gelIndications :Chronic low back pain, unspecified back pain laterality, unspecified whether sciatica present apply 2 gram by topical route 4 times every day as needed for hand pain 50 g 2 11/07/19 25 Active cyclobenzaprin e (Flexeril) 10 MG tablet Take 1 tablet (10 mg) by mouth if needed in the morning and at bedtime for muscle spasms for up to 10 days. 20 tablet 01/25/20 25 Active Eliquis 5 MG tablet TAKE 1 TABLET BY MOUTH TWICE DAILY IN THE MORNING AND IN THE EVENING 60 tablet 3 02/16/20 25 Active ketoconazole (NIZOral) 2 % shampooIndicat ions:Seborrhei c dermatitis Apply topically 2 (two) times a week. Apply 5 to 10 mL to wet scalp; leave on for 3 to 5 minutes and then rinse off thoroughly 120 mL 1 03/14/20 25 026 Active ursodiol (Actigall) 250 MG tablet TAKE 1 TABLET BY MOUTH TWICE DAILY IN THE MORNING AND IN THE EVENING 60 tablet 11 03/13/20 25 Active oxyCODONE-acet aminophen (Percocet) 7.5-325 MG tabletIndicati ons:Osteonecro sis of hip with collapse of femoral head present on x-ray ([facility]) TAKE 1 TABLET BY MOUTH EVERY 6 HOURS NEEDED FOR SEVERE PAIN FOR UP TO 28 DAYS 112 tablet 03/21/20 25 025 Active ursodiol (Sushil) 250 MG tablet Take 1 tablet (250 mg) by mouth 2 times daily. 60 tablet 11 04/10/20 24 025 Discontinued dexAMETHasone (Decadron) 4 MG tablet TOME 1 TABLETA POR V A ORAL DOS VECES AL D A 11/26/19 25 025 Discontinued(Ot her) oxyCODONE-acet aminophen (Percocet) 7.5-325 MG tabletIndicati ons:Osteonecro sis of hip with collapse of femoral head present on x-ray (CMS/HCC) Take 1 tablet by mouth every 6 (six) hours if needed for severe pain for up to 28 days. 112 tablet 02/22/20 025 Discontinued predniSONE (Deltasone) 20 MG tablet Take 1 tablet (20 mg) by mouth Once per day for 5 days. 5 tablet 03/06/20 25 025 econazole nitrate 1 % creamIndicatio ns:Seborrheic dermatitis Apply topically Once per day for 14 days. (Nose) 15 g 1 03/12/20 025 Active Problems Problem Noted Date Diagnosed Date Soft tissue lesion of elbow region 01/24/2025 Assessment & Plan (01/24/2025 2:42 PM EDT): They seem to be tophi lesions rheumatoid nodules, however evaluation for gout has been reportedly negative. Lesions get infected on and off over the years requiring hospitalizations or outpatient antibiotics. Patient should continue RA treatment with pipe roller, avoid trauma to elbows. Cervical paraspinal muscle spasm 01/24/2025 Long-term current use of opiate analgesic 2024 Overview (12/12/2024): Medication: Percocet 7.5/325mg Q6H PRN Indication: Rheumatoid arthritis Last [employer]PER[employer] CHIEF Agreement: 06/12/24 Tier: II (Q3 months visits), Dr. Estrada 08/15/24 Assessment & Plan (03/12/2025 2:41 PM EDT): Timeline: - 11/06/24: Group - Utox/pill count as expected - 12/11/24: Group - Utox/pill count as expected - 03/13/25: Group - Utox/pill count as expected Assessment & Plan (12/12/2024 5:34 PM EDT): Timeline: - 11/06/24: Group - Utox/pill count as expected - 12/11/24: Group - Utox/pill count as expected Assessment & Plan (11/06/2024 1:49 PM EDT): Timeline: - 11/06/24: Group - Utox/pill count as expected Assessment & Plan (09/28/2024 8:21 AM EST): Has Narcan at home [employer] OPERATOR CHIEF agreement UTD Seeing group pain visits for [employer] OPER[employer] CHIEF Assessment & Plan (09/11/2024 5:03 PM EST): [...] factor 01/26/2024 Overview (08/14/2024): - Following with [facility] Rheum: Dr. Castro Assessment [...] to go back to her previous dose, [employer]PER[employer] CHIEF nurse informed about my plan, I instructed to book a sooner appointment with rheumatology to re-evaluate her case Inflammatory arthritis 01/26/2024 Assessment & Plan (03/06/2025 10:57 PM EDT): Pt w acute flare up of her RA,states to have typical presentation On exam no concerning findings for infection at this time -from last labs 02/18/2025 SR 81<--94,CRP 0.44-wnl, chem wnl -right hand XR 02/18/2025 Mild arthritic changes suspected along the PIP and DIP joints all digits. There is mild soft tissue swelling PIP joint second, third and fourth digits. -last seen 02/06/2025 by rheumatology From PCP note pt f w Dr. Corley, rheum at [facility] - Actemra infusions ( Tocilizumab) 8mg/kg every 4 weeks - methotrexate 25mg every week - Folic acid 1 mg every day -percocet 7.5/325 1 tab Q6 h -I called today her Rfid Engineer # [phone] --got apt and requested transportation to [facility] RN -apt w pipe roller in 2 days this Tuesday03/08/2025 at 1 h 40 at [address] [facility] 140 -start prednisone 20 mg daily for 5 days -pt has AVN so need to be careful so will do short course -alarm signs symptoms discussed w pt , explained if having fever ,feeling malaise to go to ED to r/o septic arthritis Osteonecrosis of hip with co llapse of [...] Will consider additional options at next appointment Constipation 07/03/2022 Hand pain 07/03/2022 History of 2019 novel coronavirus disease (COVID -19) 07/03/2022 Lumbosacral stenosis 07/03/2022 Chronic occlusion of artery of extremity [...] 06/03/2017 Rheumatoid arthritis involving multiple sites Overview (03/12/2025): - Following with [facility] Rheumatology: Dr. Corley Assessment & Plan (03/12/2025 2:40 PM EDT): Actemra discontinued 03/08/25. Currently prescribed prednisone 20mg daily and Bactrim for PCP prophylaxis through Rheum. Reviewed ED rec/precautions. Disability is severe, limited mobility and exercise tolerance Hospital bed received Scooter evaluation complete and has arrived for patient Using Percocet 7.5/325mg for pain relief Quitting smoking is helping as well Assessment & Plan (12/31/2024 8:21 AM EDT): Disease is slowly coming into remission Actemra infusions providing better control in terms of synovitis Disability is severe, limited mobility and exercise tolerance Hospital bed order is in process Scooter evaluation complete and has arrived for patient Using Percocet 7.5/325mg for pain relief Quitting smoking is helping as well Assessment & Plan (12/12/2024 5:33 PM EDT): -Good engagement and participation with Group Medical Visit model -Encouraged multifactorial approach to pain control including pharm and non- pharm modalities -UTOX and Pill count as expected Assessment & Plan (11/06/2024 1:48 PM EDT): [...] PM EDT): Primarily managed by Rheum at [facility] Continue to take Oulimiant [...] not as effective -I spoke today with [facility] staff today ( Shahla) and confirmed they do have remdesivir which will be the best options for tx for this pt , ER at [facility] are expecting pt for evaluation. Also [...] this note Rheumatoid arthritis flare 01/18/2023 0 12/31/2024 Assessment & Plan (11/23/2024 4:25 PM EDT): I will treat patient for rheumatoid arthritis flare with prednisone 50 mg daily and I advised for her to follow-up with rheumatology Assessment & Plan (10/09/2024 1:19 PM EDT): [...] week as per Rheumatology. Rx sent to [facility] and they will continue refill for [...] 10mg until she sees rheumatology Check labs Acute ankle pain 07/03/2022 12/31/2024 Cellulitis of axilla 07/03/2022 025 Elevated blood pressure reading 07/03/2022 12/31/2024 Acute pain of both knees 07/03/202209/2024 Straining during bowel movements 07/03/2022 09/28/2024 Arthritis, senescent 06/03/2017 025 Psychoactive substance use disorder 05/04/2012 09/28/2024 Encounters * This document contains information received from the source organization and may not represent a complete record from that organization. Date Type Department Care Team Description 03/18/2025 Refill [facility] [address] [place] [address] Livia Amos MD 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 ([facility]) 03/14/2025 Refill [facility] [address] [place] [address] Livia Amos MD 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 ([facility]) 03/13/2025 Refill [facility] [address] [place] [phone] Mackenzie Estrada MD 03/12/2025 9:45 AM EDT Office Visit [facility] [address] [place] [phone] Sisi Kennedy, FARHEEN Rheumatoid arthritis involving multiple sites with positive rheumatoid factor ([facility]) (Primary Dx); Long-term current use of opiate analgesic; Seborrheic dermatitis 03/12/2025 Travel 03/06/2025 2:00 PM EDT Office Visit [facility] [address] [place] [phone] Livia Hooper MD Inflammatory arthritis (Primary Dx) 03/06/[address] [address] Mackenzie Estrada MD pt1 (PT-1 Request [id number] Pending . For pending submissions, please check the portal periodically for updates. ) 03/06/2025 Telephone [facility] [address] [place] [address] Livia Hooper MD 03/06/2025 Travel 03/05/2025 Telephone [facility] [address] [place] [phone] Mackenzie Estrada MD Nurse Triage 02/28/2025 Patient Outreach [facility] [address] [place] [address] Mackenzie Estrada MD Care Coordination (CP/ Communication to pt assigned CP Coordinator) 02/21/2025 Refill [facility] [address] [place] [phone] Kaylene Samano RN 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 ([facility]) 02/21/[address] [address] Mackenzie Estrada MD Med Refill 02/19/2025 Patient Outreach [facility] [address] [place] [address] Mackenzie Estrada MD Care Coordination ([facility] ED /F/U) 02/19/2025 Patient Outreach [facility] [address] [place] [address] Mackenzie Estrada MD Care Coordination ([facility] Semi Driver / Chart Review) 02/19/2025 Patient Outreach [facility] [address] [place] [phone] Mackenzie Estrada MD 02/19/2025 Patient Outreach [facility] [address] [place] [address] Mackenzie Estrada MD 02/18/2025 Refill [facility] [address] [place] [phone] Mackenzie Estrada MD 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 ([facility]) 02/18/2025 Orders Only GENERIC EXTERNAL DATA DEPARTMENT Provider, Generic External Data 02/14/2025 Refill [facility] [address] [place] [phone] Mackenzie Estrada MD 02/05/2025 Telephone [facility] [address] [place] [address] Mackenzie Estrada MD ER Follow-up 02/04/2025 Orders Only GENERIC EXTERNAL DATA DEPARTMENT Provider, Generic External Data 02/01/2025 Refill [facility] [address] [place] [phone] Ebony Daigle MD 01/24/2025 12:15 PM EDT Office Visit [facility] [address] [place] [phone] Ebony Daigle MD Soft tissue lesion of elbow region (Primary Dx); Cervical paraspinal muscle spasm; Screening mammogram, encounter for; Encounter for immunization 01/24/2025 Refill [facility] [address] [place] [address] Ebony Daigle MD Rheumatoid arthritis involving multiple sites with positive rheumatoid factor ([facility]) 01/24/2025 Telephone [facility] [address] [place] [phone] Mackenzie Estrada MD Med Refill 01/24/2025 Refill [facility] [address] [place] [phone] Kat Yo MD 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 ([facility]); Inflammatory arthritis 01/24/[address] [address] Kaylene Samano RN 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 ([facility]) 01/24/2025 Travel 01/18/2025 Patient Outreach [address] [address] Mackenzie Estrada MD Care Coordination (C3- ER F/U Call) 01/18/2025 Patient Outreach [address] [address] Makcenzie Estrada MD 01/17/2025 Orders Only GENERIC EXTERNAL DATA DEPARTMENT Provider, Generic External Data 01/02/[address] [address] Mackenzie Estrada MD Care Coordination (ICP care plan) 12/28/2024 9:45 AM EDT Office Visit [address] [address] Mackenzie Estrada MD Rheumatoid arthritis involving multiple sites with positive rheumatoid factor ([facility]) (Primary Dx); Recurrent major depressive disorder, in remission ([facility]); Personal history of Hodgkin lymphoma; NSTEMI (non-ST elevated myocardial infarction) ([facility]) 12/28/2024 Travel from Last 3 Months Immunizations Immunization Administration Dates Next Due Hep A, Adult 08/28/2012 Hep B, adult 08/28/2012,09/08/2006,05/04/2006 Influenza Injectable Quadriv alant Preservative Free IIV4 MDCK 04/28/2023 Influenza injectable quadriv alent IIV4 with preservative 04/19/2017 Influenza injectable quadriv alent preservative free 05/13/2021,07/05/2018 Influenza, IIV3, injectable 07/15/2014, 1 Influenza, Split (incl. severino fied surface antigen) 05/04/2012 Moderna Covid-19 Vaccine 12+ 07/23/2021,12/11/19 21,11/12/2020 Pneumococcal Conjugate PCV 13 03/15/2018 Pneumococcal Conjugate PCV 20 01/24/2025 Pneumococcal Polysaccharide PPSV23 08/10/2006 Tdap 04/19/2017 Family [...] your housing situation today? I have mendoza niki 05/15/[address] you li [...] Q2 Not on file 09/10/2024 Comments Unknown Intention Date Recorded No desire to become (finding) 0 09/24/2024 Sex and Gender Information Value Date Recorded Sex Assigned at Female 05/31/2022 10:18 AM EDT Legal Sex Female 10:18 AM EDT Gender Identity Female 05/31/2022 10:18 AM EDT Sexual Orientation Straight 05/31/2022 10 :18 AM EDT Last Filed Vital Signs Vital Sign Reading Time Taken Comments Blood Pressure 134/72 03/06/2025 2:01 PM EDT Pulse 90 03/06/2025 2:01 PM EDT Temperature 36.8 C (98.2 F) 03/06/2025 2:01 PM EDT Respiratory Rate 18 03/06/2025 2:01 PM EDT Oxygen Saturation 95% 03/06/2025 2:01 PM EDT Inhaled Oxygen Concentration - - Weight 84.4 kg (186 lb) 03/06/2025 2:01 PM EDT Height 157.5 cm (5' 2 ) 01/24/2025 12:08 PM EDT Body Mass Index 34.02 01/24/2025 12:08 PM EDT Plan of Treatment Upcoming Encounters Date Type Department Care Team (Late st Contact Info) Description 05/14/2025 9:45 AM EDT Office Visit [facility] [address] [place] [phone] Health Maintenance Due Date Last Done Comments CT Colonography 1975 Dental Prophylaxis 1975 FIT DNA/Cologuard 1975 FIT 1975 FOBT 1975 Sigmoidoscopy 1975 Zoster Vaccines (1 of 2) 1995 Dental Oral Exam 07/30/2021 01/27/2021 Mammogram 10/10/2023 10/09/2021, 11/24/2018 Dental X-Ray: Full Mouth 01/29/2024 01/27/2021 COVID-19 Vaccine ( season) 2024 07/23/2021, 12/10/2020, 11/12/2020 Dental X-Ray: Bitewings 01/20/2025 01/20/20 24, 01/27/2021, 04/19/2016 Influenza Vaccine (#1) 2025 3, 05/13/2021, 07/05/2018, Additional history exists Depression Screening 04/30/2025 04/30/2024, 04/30/20 24 SDOH Screening 09/10/2025 09/10/2024 Family Planning (PISQ) 09/28/2025 09/28/2024 Alcohol/Substance Use Screening 12/28/2025 12/28/2024 Disability Screening 12/28/2025 12/28/2024 Tobacco Screening 03/06/2026 03/06/2025 Lipid Panel 09/14/2026 09/14/2021 DTaP/Tdap/Td Vaccines (2 [...] Completed 04/11/2024 Hepatitis C Screening Completed 04/11/2024 Pneumococcal Vaccine: Pediatrics (0 to 5 Years) and At-Risk Patients (6 to 49) Years Completed 01/24/2025, 03/15/2018, 08/10/2006 HIB Vaccines Aged Out No longer eligi [...] Comments POCT GALLO-14 URINE DRUG SCREEN Routine 03/12/2025 10:28 AM EDT Rheumatoid arthritis involving multiple sites with positive rheumatoid factor (CMS/HCC) Long-term current use of opiate analgesic URINALYSIS, COMPLETE, WITH REFLEX TO CULTURE Routine 02/18/2025 10:44 AM EDT VASC US LOWER EXTREMITY VENOUS DUPLEX BILATERAL Routine 02/18/2025 9:50 AM EDT SED RATE BY MODIFIED WESTERGREN Routine 02/18/2025 8:49 AM EDT HIGH SENSITIVITY TROPONIN I Routine 02/18/2025 8:49 AM EDT B TYPE NATRIURETIC PEPTIDE (BNP) Routine 02/18/2025 8:49 AM EDT MAGNESIUM Routine 02/18/2025 8:49 AM EDT BASIC METABOLIC PANEL Routine 02/18/2025 8:49 AM EDT HEPATIC FUNCTION PANEL Routine 8:49 AM EDT C-REACTIVE PROTEIN Routine 02/18/2025 8: 49 AM EDT CBC WITH AUTO DIFFERENTIAL Routine 02/18/2025 8:49 AM EDT SARS COV2/INFLUENZA A/B AND RSV RNA QL NAAT Routine 02/18/2025 8:49 AM EDT XR KNEE 3 VIEWS LEFT Routine 02/18/2025 8:14 AM EDT XR KNEE 3 VIEWS RIGHT Routine 02/18/2025 8:11 AM EDT XR HAND 3+ VIEWS RIGHT Routine 5 8:08 AM EDT CULTURE, URINE, ROUTINE Routine 02/18/2025 12:00 AM EDT XR FOOT 3+ VIEWS LEFT Routine 02/04/2025 9:33 AM EDT XR ANKLE 3+ VIEWS LEFT Routine 5 9:26 AM EDT SED RATE BY MODIFIED WESTERGREN Routine 02/04/2025 8:38 AM EDT COMPREHENSIVE METABOLIC PANEL Routine 02/04/2025 8:38 AM EDT CBC WITH AUTO DIFFERENTIAL Routine 02/04/2025 8:38 AM EDT US VENOUS DUPLEX LE LT Routine 5 12:19 PM EDT XR ANKLE 3+ VIEWS LEFT Routine 5 12:11 PM EDT XR FOOT 3+ VIEWS LEFT Routine 01/17/2025 12:10 PM EDT XR ELBOW 3+ VIEWS LEFT Routine 5 12:08 PM EDT SED RATE BY MODIFIED WESTERGREN Routine 01/17/2025 11:17 AM EDT C-REACTIVE PROTEIN Routine 01/17/2025 11 :17 AM EDT MAGNESIUM Routine 01/17/2025 11:17 AM EDT COMPREHENSIVE METABOLIC PANEL Routine 01/17/2025 11:17 AM EDT CBC WITH AUTO DIFFERENTIAL Routine 01/17/2025 11:17 AM EDT HEPATITIS C ANTIBODY Routine 04/11/2024 10:26 AM [...] Recently Relevant to Health Maintenance Results * (ABNORMAL) POCT GALLO-14 Urine Drug Screen (03/12/2025 10:28 AM EDT) THC Positive(A) Negative Cocaine Screen, Urine Negative Negative Opiate Screen, Urine Negative Negative Methamphetamine Screen Urine Negative Negative Amphetamine Screen, Urine Negative Negative Benzodiazepines Screen, Urine Positive(A) Negative Barbiturate Screen, Urine Negative Negative Methadone Screen, Urine Negative Negative Buprenophine Screen, Urine Negative Negative TCA, Urine Negative Negative MDMA Urine Negative Negative ng/mL Oxycodone Screen, Urine Positive(A) Negative Phencyclidine (PCP), Urine Negative Negative Propoxyphene, Urine Negative Negative Fentanyl, Urine Negative Negative Urine Urine specimen obtained by clean catch procedure / Unknown 03/12/2025 10:28 AM EDT Narrative Coral Somers RN - 03/12/2025 10:28 AM EDT .UTOX cup Lot#[id number] Exp. 05/07/26 Internal Pass Control us Sisikatherin Kennedy CORRESPONDENCE SECTION SUPERVISOR POINT OF CARE TEST ENTER/EDIT ORDERABLES Final Result * (ABNORMAL) Urinalysis, Complete, with Reflex to Culture (02/18/2025 10:44 AM EDT) Color Urine Yellow [facility] Appearance Urine Clear [facility] PH 6.0 5.0 - 9.0 [facility] Glucose Urine UA Negative Negative mg/dL [facility] Urine Blood Negative Negative [facility] Specific [place] - Urine 1.020 1.005 - 1.025 [facility] Urine Protein Negative Neg-Trace mg/dL [facility] Urine Ketones Negative Negative mg/dL [facility] Nitrite Urine Negative Negative [facility] Leukocyte Esterase Urine Small (1+)(A) Negative [facility] RBC Urine 0-2 0 - 2 /HPF [facility] Urine WBC 6-10(A) 0 - 5 /HPF [facility] Urine Squamous Epithelial Cell 11-20 0 - 2 /HPF [facility] Urine Bacteria Trace None Seen [facility] Hyaline Casts, Urine 0-2 0 - 2 /LPF [facility] 02/18/2025 10:4 4 AM EDT 02/18/2025 10:49 AM EDT Narrative [facility] - 02/18/2025 10:57 AM EDT [id number], Clean Catch us Generic External Data Provider LAB URINE ORDERAB LES Final Result [facility] [address] [place] [phone] * VASC US Lower Extremity Venous Duplex Bilateral (02/18/2025 9:50 AM EDT) 02/18/2025 9:50 AM EDT Narrative [facility] - 02/18/2025 10:27 AM EDT [address] [address] Ultrasound Report Signed Patient: Ginette Arceo MR #: [id number] : 1975 Acct:[id number] Age/Sex: 49 / F ADM Date: 02/18/25 Loc: .ED Attending Dr: Ordering Physician: Jana Mcdaniel Date of Service: 02/18/25 Procedure(s): US venous duplex LE BI Accession Number(s): [id number] cc: Mackenzie Estrada; Jana Mcdaniel EXAMINATION: US TRIPLEX LOWER EXTREMITY, BILATERAL CLINICAL INFORMATION: Bilateral lower extremity pain and edema. COMPARISON: 01/17/2025, 10/26/2023, 06/28/2023. TECHNIQUE: Color-flow triplex imaging with spectral analysis and compression Doppler were performed on the bilateral lower extremities. FINDINGS: Respiratory variation, normal compression and augmented flow are noted throughout the bilateral lower extremities. The visualized common femoral vein, superficial femoral vein, profunda femoral vein, popliteal vein and midcalf peroneal and posterior tibial venous segments show no evidence of deep venous thrombosis bilaterally. There is a left popliteal fossa cyst measuring 3.0 x 1.0 x 1.5 cm, unchanged from prior. There are bilateral reactive appearing groin lymph nodes. These demonstrate large fatty trista. US/US venous duplex LE BI IMPRESSION: 1. No evidence of deep venous thrombosis involving the bilateral lower extremities. 2. Left-sided Dhillon's cyst measuring 3.0 x 1.0 x 1.5 cm, unchanged. 3. Bilateral reactive appearing groin lymph nodes. Electronically signed by: Arian Mondragon MD 02/18/2025 10:24 AM EDT Dictated By: Arian Mondragon MD Signed By: <Electronically signed by Arian Mondragon MD in OV> 02/18/25 1024 DD/ 0950 TD/TT: 02/18/25 1010 Lithoduplicator Operator: Procedure Note Donotuseinterpreter, Image - 02/18/[address] [address] Ultrasound Report Signed Patient: Ginette ArceoMR #: [id number] : 1975Acct:[id number] Age/Sex: 49 / FADM Date: 02/18/25 Loc: HO.ED Attending Dr: Ordering Physician: Jana Mcdaniel Date of Service: 02/18/25 Procedure(s): US venous duplex LE BI Accession Number(s): [id number] cc: Mackenzie Estrada; Jana Mcdaniel EXAMINATION: US TRIPLEX LOWER EXTREMITY, BILATERAL CLINICAL INFORMATION: Bilateral lower extremity pain and edema. COMPARISON: 01/17/2025, 10/26/2023, 06/28/2023. TECHNIQUE: Color-flow triplex imaging with spectral analysis and compression Doppler were performed on the bilateral lower extremities. FINDINGS: Respiratory variation, normal compression and augmented flow are noted throughout the bilateral lower extremities. The visualized common femoral vein, superficial femoral vein, profunda femoral vein, popliteal vein and midcalf peroneal and posterior tibial venous segments show no evidence of deep venous thrombosis bilaterally. There is a left popliteal fossa cyst measuring 3.0 x 1.0 x 1.5 cm, unchanged from prior. There are bilateral reactive appearing groin lymph nodes. These demonstrate large fatty trista. US/US venous duplex LE BI IMPRESSION: 1. No evidence of deep venous thrombosis involving the bilateral lower extremities. 2. Left-sided Dhillon's cyst measuring 3.0 x 1.0 x 1.5 cm, unchanged. 3. Bilateral reactive appearing groin lymph nodes. Electronically signed by: Arian Mondragon MD 02/18/2025 10:24 AM EDT Dictated By: Arian Mondragon MD Signed By: <Electronically signed by Arian Mondragon MD in OV> 02/18/25 1024 DD/ 0950 TD/TT: 02/18/25 1010 Lithoduplicator Operator: [facility] External Provider CV VASC ULAR PROCEDURES Final Result [facility] [address] [place] [phone] * High Sensitivity Troponin I (02/18/2025 8:49 AM EDT) Pathologist [facility] TROPONIN I HIGH SENSITIVITY <2.7 <3.5 - 17.0 ng/L [facility] Comment:The Shea high sens itivity Troponin-I results should beused in conjunction with other diagnostic information suchas ECG, clinical observations and information, and patientsymptoms to aid in the diagnosis of [place]. 02/18/2025 8:49 AM EDT 02/18/2025 8:54 AM EDT us Generic External Data Provider LAB BLOOD ORDERAB LES Final Result Performing Organization Address City/[facility]/ZIP Co de Phone Number [facility] [address] [place] [phone] * SARS-CoV-2 RNA, Influenza A/B, and RSV RNA, Ql NAAT (02/18/2025 8:49 AM EDT) Pathologist [facility] Influenza A PCR NEGATIVE Negative [facility] Influenza B PCR NEGATIVE Negative [facility] Resp Syncy Virus RNA Qual PCR NEGATIVE Negative [facility] SARS COV2 PCR NEGATIVE Negative [facility] Comment:All test results mus t be correlated with clinical findings.Negative results do not preclude SARS-CoV2, influenza Avirus, influenza B virus and/or RSV infectionand should not be used as the sole basis for treatment orother patient management decisions. Negative results must becombined with clinical observations, patient history, andepidemiological information.This test has not been evaluated for monitoring treatment ofinfection.This test has been authorized by the FDA under an EmergencyUse Authorization (EUA) for use by authorized laboratories.Testing performed on the [employer] GeneXpert utilizingreal-time RT-PCR.All SARS CoV2 and positive influenza A/B results arereported to [facility]. 02/18/2025 8:49 AM EDT 02/18/2025 8:54 AM EDT us Generic External Data Provider LAB MICROBIOLOGY - GENERAL ORDERABLES Final Result [facility] [address] [place] [phone] * (ABNORMAL) CBC auto differential (02/18/2025 8:49 AM EDT) Only the most recent of3 resultswithin the time period is included. White Blood Count 3.6(L) 4.8 - 10.8 X10*3/uL [facility] Red Blood Count 4.16(L) 4.20 - 5.50 X10*6/uL [facility] Hemoglobin 12.5 12.0 - 16.0 g/dl [facility] Hematocrit 37.9 37.0 - 47.0 % [facility] Mean Corpuscular Volume 91.1 80.0 - 98.0 fL [facility] Mean Corpuscular Hemoglobin 30.0 27.0 - 33.0 pg [facility] Mean Corpuscular HGB Conc 33.0 31.0 - 35.0 g/dl [facility] Red Cell Distribution Width 14.1 11.0 - 16.0 % [facility] Platelet Count 308 160 - 400 X10*3/uL [facility] Mean Platelet Volume 9.6 9.4 - 12.3 fL [facility] Neutrophils Percent Auto 44.3(L) 45 - 73 % [facility] Imm Gran Pct Auto 0.3 0.0 - 0.4 % [facility] Lymphocytes Percent Auto 47.5(H) 20 - 40 % [facility] Monocytes Percent Auto 5.6 2 - 11 % [facility] Eosinophils Percent Auto 1.7 0 - 4 % [facility] Basophils Percent Auto 0.6 0 - 2 % [facility] NRBC Pct Auto 0.0 0.0 - 0.2 /100WBC [facility] Neutrophils Absolute Auto 1.6(L) 2.0 - 8.3 x10*3/uL [facility] Imm Gran Abs Auto 0.01 0.00 - 0.03 X10*3/uL [facility] Lymphocytes Absolute Auto 1.7 1.2 - 4.9 X10*3/uL [facility] Monocytes Absolute Auto 0.2 0.1 - 1.2 X10*3/uL [facility] Eosinophils Absolute Auto 0.1 0.0 - 0.4 X10*3/uL [facility] Basophils Absolute Auto 0.0 0.0 - 0.2 X10*3/uL [facility] NRBC Abs Auto 0.000 0.0 - 0.012 X10*3/uL [facility] 02/18/2025 8:49 AM EDT 02/18/2025 8:54 AM EDT Generic External Data Provider LAB BLOOD ORDERAB LES Final Result Performing Organization Address [facility] de Phone Number [facility] [address] [place] [phone] * (ABNORMAL) Sed Rate by Modified Maldonadoren (02/18/2025 8:49 AM EDT) Only the most recent of3 resultswithin the time period is included. Erythrocyte Sedimentation Rate 81(H) 0 - 20 MM/HR [facility] Comment:Patients with polycy themia and many hemoglobin abnormalitiesmay have depressed sed rates whereas patients with anemiamay have elevated sed rates. 02/18/2025 8:49 AM EDT 02/18/2025 8:54 AM EDT Generic External Data Provider LAB BLOOD ORDERAB LES Final Result Performing Organization Address [facility] Co de Phone Number [facility] [address] [place] [phone] * C-reactive Protein (02/18/2025 8:49 AM EDT) Only the most recent of2 resultswithin the time period is included. C Reactive Protein 0.44 < or = 0.50 mg/dL [facility] 02/18/2025 8:49 AM EDT 02/18/2025 8:54 AM EDT us Generic External Data Provider LAB BLOOD ORDERAB LES Final Result Performing Organization Address [facility] de Phone Number [facility] [address] [place] [phone] * B Type Natriuretic Peptide (BNP) (02/18/2025 8:49 AM EDT) [facility] B Type Natriuretic Peptide 48 <100 pg/mL [facility] 02/18/2025 8:49 AM EDT 02/18/2025 8:54 AM EDT Generic External Data Provider LAB BLOOD ORDERAB LES Final Result Performing Organization Address [facility] Number [facility] [address] [place] [phone] * Magnesium (02/18/2025 8:49 AM EDT) Only the most recent of2 resultswithin the time period is included. [facility] Magnesium 2.2 1.6 - 2.6 mg/dL [facility] 02/18/2025 8:49 AM EDT 02/18/2025 8:54 AM EDT Generic External Data Provider LAB BLOOD ORDERAB LES Final Result Performing Organization Address [facility] de Phone Number [facility] [address] [place] [phone] * (ABNORMAL) Hepatic Function Panel (02/18/2025 8:49 AM EDT) [facility] Bilirubin, Total 0.2 0.0 - 1.0 mg/dL [facility] Bilirubin, Direct <0.2 0.0 - 0.5 mg/dL [facility] Aspartate Amino Transferase 29 5 - 31 U/L [facility] Comment:Slight Hemolysis.Int erpret result with caution. Alanine Aminotransferase 13 0 - 31 U/L [facility] Total Protein 9.6(H) 6.5 - 8.0 g/dL [facility] Albumin Level 4.2 3.5 - 5.0 g/dL [facility] Alkaline Phosphatase 91 39 - 117 U/L [facility] 02/18/2025 8:49 AM EDT 02/18/2025 8:54 AM EDT us Generic External Data Provider LAB BLOOD ORDERAB LES Final Result [facility] [address] [place] [phone] * Basic Metabolic Panel (02/18/2025 8:49 AM EDT) Sodium 140 135 - 145 mmol/L [facility] Potassium 4.6 3.3 - 5.1 mmol/L [facility] Comment:Slight Hemolysis.Int erpret result with caution. Chloride 106 96 - 108 mmol/L [facility] Carbon Dioxide 25 22 - 29 mmol/L [facility] Anion Gap 14 12 - 20 [facility] Urea Nitrogen (BUN) 12 9 - 16 mg/dL [facility] Creatinine, Serum 0.62 0.5 - 1.4 mg/dL [facility] Creatinine Clr Calc Pharmacy 120.9 [facility] Comment:Provided height and weight: 167.64 cm,83.6 kg.eGFR (calculated from the MDRD study equation) and eCrCl(calculated from the Cockcroft-Gault equation) are based ondifferent parameters and may not yield comparable results.If eCrCl result is absurd, please check patient'sheight/weight. Estimated Glomerular Filt Rate >60 [facility] Comment:Chronic Kidney Disea se: Estimated GFR < 60 mL/min/[id number] Kidney Disease: Estimated GFR < 15 mL/min/1.73m2 Glucose 101 60 - 115 mg/dL [facility] Calcium 9.6 8.4 - 10.2 mg/dL [facility] 02/18/2025 8:49 AM EDT 02/18/2025 8:54 AM EDT us Generic External Data Provider LAB BLOOD ORDERAB LES Final Result Performing Organization Address City/State/[facility] Co de Phone Number [facility] [address] [place] [phone] * XR Knee 3 Views Left (02/18/2025 8:14 AM EDT) Anatomical Region Laterality Modality Lower Extremities, Knee Left Radiogra phic Imaging 02/18/2025 8:14 AM EDT Narrative 02/18/2025 9:26 AM EDT [address] [address] XRay Report Signed Patient: Ginette Arceo MR #: [id number] : 1975 Acct:[id number] Age/Sex: 49 / F ADM Date: 02/18/25 Loc: .ED Attending Dr: Ordering Physician: Jana Mcdaniel Date of Service: 02/18/25 Procedure(s): XR knee LT 3V Accession Number(s): [id number] cc: Mackenzie Estrada; Jana Mcdaniel EXAMINATION: XR KNEE, LEFT CLINICAL INFORMATION: pain COMPARISON: None available. TECHNIQUE: Four views of the left knee. FINDINGS: No fracture or joint effusion. Alignment is anatomic. Joint spaces are maintained. No abnormal soft tissue calcification. XR/XR knee LT 3V IMPRESSION: Unremarkable left knee. Electronically signed by: Jamie Avelar MD 02/18/2025 09:23 AM EDT Dictated By: Jamie Avelar MD Signed By: <Electronically signed by Jamie Avelar MD in OV> 02/18/25922 DD/ 3 TD/TT: 02/18/25912 Lithoduplicator Operator: [facility] Procedure Note Donotuseinterpreter, Image - 02/18/[address] [address] XRay Report Signed Patient: Ginette ArceoMR #: [id number] : 1975Acct:[id number] Age/Sex: 49 / FADM Date: 02/18/25 Loc: HO.ED Attending Dr: Ordering Physician: Jana Mcdaniel Date of Service: 02/18/25 Procedure(s): XR knee LT 3V Accession Number(s): [id number] cc: Mackenzie Estrada; Jana Mcdaniel EXAMINATION: XR KNEE, LEFT CLINICAL INFORMATION: pain COMPARISON: None available. TECHNIQUE: Four views of the left knee. FINDINGS: No fracture or joint effusion. Alignment is anatomic. Joint spaces are maintained. No abnormal soft tissue calcification. XR/XR knee LT 3V IMPRESSION: Unremarkable left knee. Electronically signed by: Jamie Avelar MD 02/18/2025 09:23 AM EDT Dictated By: Jamie Avelar MD Signed By: <Electronically signed by Jamie Avelar MD in OV> 02/18/25 09 DD/ 0814 TD/TT: 02/18/25 0913 Lithoduplicator Operator: MAGGIE [facility] External Provider IMG XR PROCEDURES Final Result * XR Knee 3 Views Right (02/18/2025 8:11 AM EDT) Anatomical Region Laterality Modality Lower Extremities, Knee Right [facility] 02/18/2025 8:11 AM EDT Narrative 02/18/2025 9:25 AM EDT [address] [address] XRay Report Signed Patient: Ginette Arceo MR #: [id number] : 1975 Acct:[id number] Age/Sex: 49 / F ADM Date: 02/18/25 Loc: HO.ED Attending Dr: Ordering Physician: Jana Mcdaniel Date of Service: 02/18/25 Procedure(s): XR knee RT 3V Accession Number(s): [id number] cc: Mackenzie Estrada; Jana Mcdaniel EXAMINATION: XR KNEE, RIGHT CLINICAL INFORMATION: pain COMPARISON: None available. TECHNIQUE: Four views of the right knee. FINDINGS: No fracture or joint effusion. Alignment is anatomic. Joint spaces are maintained. No abnormal soft tissue calcification. XR/XR knee RT 3V IMPRESSION: Normal right knee. Electronically signed by: Jamie Avelar MD 02/18/2025 09:22 AM EDT RP Dictated By: Jamie Avelar MD Signed By: <Electronically signed by Jamie Avelar MD in OV> 02/18/2522 DD/ 0811 TD/TT: 02/18/25 09 Lithoduplicator Operator: MAGGIE Procedure Note Donotuseinterpreter, Image - 02/18/2025 [place] [address] XRay Report Signed Patient: Ginette ArceoMR #: [id number] : 1975Acct:[id number] Age/Sex: 49 / FADM Date: 02/18/25 Loc: .ED Attending Dr: Ordering Physician: Jana Mcdaniel Date of Service: 02/18/25 Procedure(s): XR knee RT 3V Accession Number(s): [id number] cc: Mackenzie Estrada; Jana Mcdaniel EXAMINATION: XR KNEE, RIGHT CLINICAL INFORMATION: pain COMPARISON: None available. TECHNIQUE: Four views of the right knee. FINDINGS: No fracture or joint effusion. Alignment is anatomic. Joint spaces are maintained. No abnormal soft tissue calcification. XR/XR knee RT 3V IMPRESSION: Normal right knee. Electronically signed by: Jamie Avelar MD 02/18/2025 09:22 AM EDT RP Dictated By: Jamie Avelar MD Signed By: <Electronically signed by Jamie Avelar MD in OV> 02/18/2522 DD/ 0811 TD/TT: 02/18/25912 Lithoduplicator Operator: MAGGIE [facility] External Provider IMG XR PROCEDURES Final Result * XR Hand 3+ Views Right (02/18/2025 8:08 AM EDT) Anatomical Region Laterality Modality Upper Extremities, Hand Right Radiogra phic Imaging 02/18/2025 8:08 AM EDT Narrative 02/18/2025 9:30 AM EDT [address] [address] XRay Report Signed Patient: Ginette Arceo MR #: [id number] : 1975 Acct:[id number] Age/Sex: 49 / F ADM Date: 02/18/25 Loc: HO.ED Attending Dr: Ordering Physician: Jana Mcdaniel Date of Service: 02/18/25 Procedure(s): XR hand RT min 3V Accession Number(s): [id number] cc: Mackenzie Estrada; Jana Mcdaniel EXAMINATION: XR HAND, RIGHT CLINICAL INFORMATION: right fifth metatarsal swelling COMPARISON: Right hand 12/24/2023 TECHNIQUE: PA, lateral, and oblique views of the right hand. FINDINGS: There is minimal loss of PIP and DIP joint space of all digits without bony erosive changes or spurring. No fracture, dislocation seen. There is minimal soft tissue swelling around the PIP joints of second third and fourth digits. Incidental finding of an negative ulnar variance and partial calcification of TFC XR/XR hand RT min 3V IMPRESSION: Mild arthritic changes suspected along the PIP and DIP joints all digits. There is mild soft tissue swelling PIP joint second, third and fourth digits. Electronically signed by: Jamie Avelar MD 02/18/2025 09:27 AM EDT Dictated By: Jamie Avelar MD Signed By: <Electronically signed by Jamie Avelar MD in OV> 02/18/25926 DD/ 7 TD/TT: 02/18/25912 Lithoduplicator Operator: MAGGIE Procedure Note Donotuseinterpreter, Image - 02/18/[address] [address] XRay Report Signed Patient: Ginette ArceoMR #: [id number] : 1975Acct:[id number] Age/Sex: 49 / FADM Date: 02/18/25 Loc: HO.ED Attending Dr: Ordering Physician: Jana Mcdaniel Date of Service: 02/18/25 Procedure(s): XR hand RT min 3V Accession Number(s): [id number] cc: Mackenzie Estrada; Jana Mcdaniel EXAMINATION: XR HAND, RIGHT CLINICAL INFORMATION: right fifth metatarsal swelling COMPARISON: Right hand 12/24/2023 TECHNIQUE: PA, lateral, and oblique views of the right hand. FINDINGS: There is minimal loss of PIP and DIP joint space of all digits without bony erosive changes or spurring. No fracture, dislocation seen. There is minimal soft tissue swelling around the PIP joints of second third and fourth digits. Incidental finding of an negative ulnar variance and partial calcification of TFC XR/XR hand RT min 3V IMPRESSION: Mild arthritic changes suspected along the PIP and DIP joints all digits. There is mild soft tissue swelling PIP joint second, third and fourth digits. Electronically signed by: Jamie Avelar MD 02/18/2025 09:27 AM EDT Dictated By: Jamie Avelar MD Signed By: <Electronically signed by Jamie Avelar MD in OV> 02/18/25926 DD/ 0808 TD/TT: 02/18/25 0913 Lithoduplicator Operator: MAGGIE [facility] External Provider IMG XR PROCEDURES Final Result * Culture, Urine, Routine (02/18/2025 12:00 AM EDT) Urine Urine specimen obtained by clean catch procedure / Unknown 02/18/2025 02/18/2025 Comment:[facility] - 02/19/2025 9:03 AM EDT Strep agalactiae (Grp B) Quant 50,000 to 100,000 cfu/mL Susc N/A Susceptibility not routinely performed on this isolate. Specimen Source: Urine clean catch us Generic External Data Provider LAB MICROBIOLOGY - GENERAL ORDERABLES Final Result [facility] [address] [place] [phone] * XR Foot 3+ Views Left (02/04/2025 9:33 AM EDT) Only the most recent of2 resultswithin the time period is included. Anatomical Region Laterality Modality Lower Extremities, Foot Left [facility] 02/04/2025 9:33 AM EDT Narrative 02/04/2025 9:35 AM EDT [address] [address] XRay Report Signed Patient: Ginette Arceo MR #: [id number] : 1975 Acct:[id number] Age/Sex: 49 / F ADM Date: 02/04/25 Loc: HO.ED Attending Dr: Ordering Physician: Raymon Fregoso MD Date of Service: 02/04/25 Procedure(s): XR foot LT min 3V Accession Number(s): [id number] cc: Raymon Fregoso MD; Mackenzie Estrada CLINICAL HISTORY: lt foot pain Exam: Left foot three views Comparison: CR/IA/SR - XR FOOT LT MIN 3V - 01/17/25 13:10 EDT Findings: Persistent linear density overlying distal dorsal articulation of the navicular bone is only seen on the lateral view. Hallux valgus with bony bunion, unchanged. No significant arthritic changes. Stable plantar calcaneal spur. No ankle joint effusion. No subcutaneous emphysema or radiopaque foreign body. Impression: 1. Persistent linear density overlapping distal navicular bone on the lateral view, no osseous abnormality on the frontal or oblique views at the region, probably artifactual due to projection, CT foot would be confirmatory and helpful for further evaluation if warranted. 2. Hallux valgus with bunion. This document has been electronically signed by: Edelmira Gaitan MD on 02/04/2025 09:33:57 Dictated By: Edelmira Gaitan MD Signed By: <Electronically signed by Edelmira Gaitan MD in OV> 02/04/25934 DD/ 2 TD/TT: 02/04/25932 Lithoduplicator Operator: Procedure Note Donotwilmarinterpreter, Image - 02/04/2025 [place] [address] XRay Report Signed Patient: Ginette ArceoMR #: [id number] : 1975Acct:[id number] Age/Sex: 49 / FADM Date: 02/04/25 Loc: HO.ED Attending Dr: Ordering Physician: Raymon Fregoso MD Date of Service: 02/04/25 Procedure(s): XR foot LT min 3V Accession Number(s): [id number] cc: Raymon Fregoso MD; Mackenzie Estrada CLINICAL HISTORY: lt foot pain Exam: Left foot three views Comparison: CR/IA/SR - XR FOOT LT MIN 3V - 01/17/25 13:10 EDT Findings: Persistent linear density overlying distal dorsal articulation of the navicular bone is only seen on the lateral view. Hallux valgus with bony bunion, unchanged. No significant arthritic changes. Stable plantar calcaneal spur. No ankle joint effusion. No subcutaneous emphysema or radiopaque foreign body. Impression: 1. Persistent linear density overlapping distal navicular bone on the lateral view, no osseous abnormality on the frontal or oblique views at the region, probably artifactual due to projection, CT foot would be confirmatory and helpful for further evaluation if warranted. 2. Hallux valgus with bunion. This document has been electronically signed by: Edelmira Gaitan MD on 02/04/2025 09:33:57 Dictated By: Edelmira Gaitan MD Signed By: <Electronically signed by Edelmira Gaitan MD in OV> 02/04/25934 DD/ 2 TD/TT: 02/04/25932 Lithoduplicator Operator: [facility] External Provider IMG XR PROCEDURES Final Result * XR Ankle 3+ Views Left (02/04/2025 9:26 AM EDT) Only the most recent of2 resultswithin the time period is included. Anatomical Region Laterality Modality Lower Extremities, Ankle Left Radiogr [facility] Imaging 02/04/2025 9:26 AM EDT Narrative 02/04/2025 9:28 AM EDT [address] [address] XRay Report Signed Patient: Ginette Arceo MR #: [id number] : 1975 Acct:[id number] Age/Sex: 49 / F ADM Date: 02/04/25 Loc: HO.ED Attending Dr: Ordering Physician: Raymon Fregoso MD Date of Service: 02/04/25 Procedure(s): XR ankle LT min 3V Accession Number(s): [id number] cc: Raymon Fregoso MD; Mackenzie Estrada CLINICAL HISTORY: lt ankle pain 3 view left ankle Comparison: CR/IA/SR - XR ANKLE LT MIN 3V - 01/17/25 13:11 EDT Findings: No acute fractures or dislocations. No significant loss of joint space, osteophytes, or erosions. No ankle effusion. No radiopaque foreign body. Small plantar calcaneal spur, unchanged. Mild diffuse soft tissue swelling. IMPRESSION: No acute osseous finding. Mild diffuse soft tissue swelling. This document has been electronically signed by: Edelmira Gaitan MD on 02/04/2025 09:26:17 Dictated By: Edelmira Gaitan MD Signed By: <Electronically signed by Edelmira Gaitan MD in OV> 02/04/25926 DD/ 5 TD/TT: 02/04/25925 Lithoduplicator Operator: Procedure Note Donotuseinterpreter, Image - 02/04/[address] [address] XRay Report Signed Patient: Ginette ArceoMR #: [id number] : 1975Acct:[id number] Age/Sex: 49 / FADM Date: 02/04/25 Loc: HO.ED Attending Dr: Ordering Physician: Raymon Fregoso MD Date of Service: 02/04/25 Procedure(s): XR ankle LT min 3V Accession Number(s): [id number] cc: Raymon Fregoso MD; Mackenzie Estrada CLINICAL HISTORY: lt ankle pain 3 view left ankle Comparison: CR/IA/SR - XR ANKLE LT MIN 3V - 01/17/25 13:11 EDT Findings: No acute fractures or dislocations. No significant loss of joint space, osteophytes, or erosions. No ankle effusion. No radiopaque foreign body. Small plantar calcaneal spur, unchanged. Mild diffuse soft tissue swelling. IMPRESSION: No acute osseous finding. Mild diffuse soft tissue swelling. This document has been electronically signed by: Edelmira Gaitan MD on 02/04/2025 09:26:17 Dictated By: Edelmira Gaitan MD Signed By: <Electronically signed by Edelmira Gaitan MD in OV> 02/04/25926 DD/ 5 TD/TT: 02/04/25925 Lithoduplicator Operator: [facility] External Provider IMG XR PROCEDURES Final Result * (ABNORMAL) Comprehensive Metabolic Panel (02/04/2025 8:38 AM EDT) Only the most recent of2 resultswithin the time period is included. Sodium 138 135 - 145 mmol/L [facility] Potassium 3.8 3.3 - 5.1 mmol/L [facility] Chloride 106 96 - 108 mmol/L [facility] Carbon Dioxide 25 22 - 29 mmol/L [facility] Anion Gap 11(L) 12 - 20 [facility] Urea Nitrogen (BUN) 10 9 - 16 mg/dL [facility] Creatinine, Serum 0.56 0.5 - 1.4 mg/dL [facility] Creatinine Clr Calc Pharmacy 134.1 [facility] [facility] Comment:Provided height and weight: 167.64 cm,84 kg.eGFR (calculated from the MDRD study equation) and eCrCl(calculated from the Cockcroft-Gault equation) are based ondifferent parameters and may not yield comparable results.If eCrCl result is absurd, please check patient'sheight/weight. Estimated Glomerular Filt Rate >60 [facility] Comment:Chronic Kidney Disea se: Estimated GFR < 60 mL/min/1.31r1Cnptnh Kidney Disease: Estimated GFR < 15 mL/min/1.73m2 Glucose 112 60 - 115 mg/dL [facility] Calcium 9.2 8.4 - 10.2 mg/dL [facility] Bilirubin, Total 0.3 0.0 - 1.0 mg/dL [facility] Aspartate Amino Transferase 16 5 - 31 U/L [facility] Alanine Aminotransferase 9 0 - 31 U/L [facility] Total Protein 8.3(H) 6.5 - 8.0 g/dL [facility] Albumin Level 3.9 3.5 - 5.0 g/dL [facility] Alkaline Phosphatase 80 39 - 117 U/L [facility] 02/04/2025 8:38 AM EDT 02/04/2025 8:40 AM EDT us Generic External Data Provider LAB BLOOD ORDERAB LES Final Result Performing Organization Address City/State/[facility] Co de Phone Number [facility] [address] [place] [phone] * US VENOUS DUPLEX LE LT (01/17/2025 12:19 PM EDT) Anatomical Region Laterality Modality Abdomen Ultrasound 01/17/2025 12:1 9 PM EDT Narrative 01/17/2025 1:51 PM EDT [address] [address] Ultrasound Report Signed Patient: Ginette Arceo MR #: [id number] : 1975 Acct:[id number] Age/Sex: 49 / F ADM Date: 01/17/25 Loc: .ED Attending Dr: Ordering Physician: Jana Mcdaniel Date of Service: 01/17/25 Procedure(s): US venous duplex LE LT Accession Number(s): [id number] cc: Mackenzie Estrada; Jana Mcdaniel EXAMINATION: US TRIPLEX LOWER EXTREMITY, LEFT CLINICAL INFORMATION: Left lower extremity swelling COMPARISON: None available. TECHNIQUE: Color-flow triplex imaging with spectral analysis and compression Doppler were performed on the left lower extremity. FINDINGS: Respiratory variation, normal compression and augmented flow are noted throughout the left lower extremity. The visualized common femoral vein, superficial femoral vein, profunda femoral vein, popliteal vein and midcalf peroneal and posterior tibial venous segments show no evidence of deep venous thrombosis. There is a small Dhillon's cyst. US/US venous duplex LE LT IMPRESSION: No evidence of deep venous thrombosis involving the left lower extremity. Electronically signed by: Hayden Jacobson MD 01/17/2025 01:48 PM EDT RP Dictated By: Hayden Jacobson MD Signed By: <Electronically signed by Hayden Jacobson MD in OV> 01/17/25 1348 DD/ 1219 TD/TT: 01/17/25 1331 Lithoduplicator Operator: Procedure Note Donotuseinterpreter, Image - 01/17/2025 [place] [address] Ultrasound Report Signed Patient: Ginette ArceoMR #: [id number] : 1975Acct:[id number] Age/Sex: 49 / FADM Date: 01/17/25 Loc: .ED Attending Dr: Ordering Physician: Jana Mcdaniel Date of Service: 01/17/25 Procedure(s): US venous duplex LE LT Accession Number(s): [id number] cc: Mackenzie Estrada; Jana Mcdaniel EXAMINATION: US TRIPLEX LOWER EXTREMITY, LEFT CLINICAL INFORMATION: Left lower extremity swelling COMPARISON: None available. TECHNIQUE: Color-flow triplex imaging with spectral analysis and compression Doppler were performed on the left lower extremity. FINDINGS: Respiratory variation, normal compression and augmented flow are noted throughout the left lower extremity. The visualized common femoral vein, superficial femoral vein, profunda femoral vein, popliteal vein and midcalf peroneal and posterior tibial venous segments show no evidence of deep venous thrombosis. There is a small Dhillon's cyst. US/US venous duplex LE LT IMPRESSION: No evidence of deep venous thrombosis involving the left lower extremity. Electronically signed by: Hayden Jacobson MD 01/17/2025 01:48 PM EDT RP Dictated By: Hayden Jacobson MD Signed By: <Electronically signed by Hayden Jacobson MD in OV> 01/17/25 1348 DD/ 1219 TD/TT: 01/17/25 1331 Lithoduplicator Operator: us [facility] External Provider IMG US PROCEDURES Final Result * XR Elbow 3+ Views Left (01/17/2025 12:08 PM EDT) Anatomical Region Laterality Modality Upper Extremities, Elbow Left Radiogr aphic Imaging 01/17/2025 12:0 8 PM EDT Narrative 01/17/2025 1:19 PM EDT [place] [address] XRay Report Signed Patient: Ginette Arceo MR #: [id number] : 1975 Acct:[id number] Age/Sex: 49 / F ADM Date: 01/17/25 Loc: .ED Attending Dr: Ordering Physician: Jana Mcdaniel Date of Service: 01/17/25 Procedure(s): XR elbow LT min 3V Accession Number(s): [id number] cc: Mackenzie Estrada; Jana Mcdaniel EXAMINATION: XR ELBOW, LEFT CLINICAL INFORMATION: pain COMPARISON: None available. TECHNIQUE: AP, lateral, and oblique views of the left elbow. FINDINGS: No joint effusion is evident. There is anatomic alignment of the radiohumeral joint. No osteophytes are evident. There is no joint space narrowing. No fracture line was seen. XR/XR elbow LT min 3V IMPRESSION: Unremarkable left elbow. Electronically signed by: Hayden Jacobson MD 01/17/2025 01:16 PM EDT RP Dictated By: Hayden Jacobson MD Signed By: <Electronically signed by Hayden Jacobson MD in OV> 01/17/25 1316 DD/ 1208 TD/TT: 01/17/25 1313 Lithoduplicator Operator: Procedure Note Donotwilmarinterpreter, Image - 01/17/[address] [address] XRay Report Signed Patient: iGnette ArceoMR #: [id number] : 1975Acct:[id number] Age/Sex: 49 / FADM Date: 01/17/25 Loc: HO.ED Attending Dr: Ordering Physician: Jana Mcdaniel Date of Service: 01/17/25 Procedure(s): XR elbow LT min 3V Accession Number(s): [id number] cc: Mackenzie Estrada; Jana Mcdaniel EXAMINATION: XR ELBOW, LEFT CLINICAL INFORMATION: pain COMPARISON: None available. TECHNIQUE: AP, lateral, and oblique views of the left elbow. FINDINGS: No joint effusion is evident. There is anatomic alignment of the radiohumeral joint. No osteophytes are evident. There is no joint space narrowing. No fracture line was seen. XR/XR elbow LT min 3V IMPRESSION: Unremarkable left elbow. Electronically signed by: Hayden Jacobson MD 01/17/2025 01:16 PM EDT RP Dictated By: Hayden Jacobson MD Signed By: <Electronically signed by Hayden Jacobson MD in OV> 01/17/25 1316 DD/ 1208 TD/TT: 01/17/25 1313 Lithoduplicator Operator: [facility] External Provider IMG XR PROCEDURES Final Result * Hepatitis C Ab (04/11/2024 10:26 AM EDT) Hepatitis C Antibody Nonreactive Nonreactive [facility] Comment:Antibodies to HCV no t detected; does not exclude early acuteHCV infection. Blood Venous blood specimen / Unknown 04/11/2024 10:26 AM EDT 04/11/2024 11:19 AM EDT us Mackenzie Estrada MD LAB BLOOD ORDERABLES Final Res ult Performing Organization Address [facility] Co de Phone Number [facility] [address] [place] [phone] * HIV-1/2 Antigen and Antibodies, Fourth Generation, with Reflexes (04/11/2024 10:26 AM EDT) HIV AB/AG Nonreactive Nonreactive [facility] Comment:HIV-1 p24 Ag and/or HIV-1/HIV-2 Ab not detected.A test result that is nonreactive does not exclude thepossibility of exposure to or infection with HIV-1 and/orHIV-2. Nonreactive results in this assay for individualswith prior exposure to HIV-1 and/or HIV-2 may be due toantigen and antibody levels that are below the limit ofdetection of this assay.The [employer] HIV Ag/Ab Combo assay result andsupplemental assay results should be interpreted inconjunction with the patient's clinical presentation,history and other laboratory results. If the results areinconsistent with clinical evidence, additional testing issuggested to confirm the result. Blood Venous blood specimen / Unknown 04/11/2024 10:26 AM EDT 04/11/2024 11:19 AM EDT us Mackenzie Estrada MD LAB BLOOD ORDERABLES Final Res ult Performing Organization Address [facility] Co de Phone Number [facility] [address] [place] [phone] * HPV mRNA E6/E7 w/Reflex to HPV Genotypes 16, 18/45 (09/29/2023 12:26 PM EST) HPV nRNA E6/E7 Not Detected Not Detected [facility] Comment:Methodology: Transcr iption-Mediated AmplificationThis assay detects E6/E7 viral messenger RNA (mRNA) from 14high-risk HPV types (16,18,31,33,35,39,45,51,52,56,58,59,66,68).Cervical sources are required for HPV testing.If a vaginal source from a patient who has had atotal hysterectomy with removal of cervix wassubmitted, please contact the testing laboratoryfor alternative testing options.For additional information, please refer tohttp://education.[employer]faq/FAT183b0(This link if provided for information/educational purposes only.)THIS TEST WAS PERFORMED AT:[employer] [place] [phone] GALVAN MD HPV mRNA E6/E7 [facility] HPV 16 RNA [facility] HPV 18/45 RNA [facility] 09/29/2023 12:2 6 PM EST 09/30/2023 11:30 AM EST Mackenzie Estrada MD LAB CYTOLOGY ORDERABLES Final Result Performing Organization Address City/State/[facility] Co de Phone Number [facility] [address] [place] [phone] * Pap Smear (09/29/2023 12:26 PM EST) 09/29/2023 12:2 6 PM EST 09/30/2023 11:30 AM EST Narrative [facility] - 10/12/2023 4:18 PM EDT ----- ------- Name: Rufino Arceoeline Age/Sex: 48/F : 1975 Unit#: [id number] Attend Dr: Mackenzie Estrada Re09/29/23 Status: DEP REF Location: [facility] Disch: ----- ------- SPEC : [id number] RECD: 09/30/23 STATUS: NIRMALA PEREZ NUM: [id number] BHAVIN: 09/29/23-[address]: Mackenzie Estrada ENTERED: 09/30/23132 SP TYPE: Pap Smr OTHR DR: ORDERED: Pap Smear Interpretation Satisfactory for evaluation. Negative for intraepithelial lesion or malignancy. HPV mRNA E6/E7: NOT DETECTED This assay detects E6/E7 viral messenger RNA (mRNA) from 14 high-risk HPV types (16, 18, 31, 33, 35, 39, 45, 51, 52, 56, 58, 59, 66, 68) HPV testing performed by [facility], [place], [place]. See reference laboratory portion of the EMR for entire report. Clinical Information LMP: Heavy menstrual bleeding past two weeks Previous PAP test: Unknown date/findings Other history: Material Received ThinPrep-Cervical ----- ------- Signed (signature on file) BARB Hawley ([facility]) 10/12/23 1618 ----- ------- END OF REPORT Mackenzie Estrada MD LAB CYTOLOGY ORDERABLES Final Result [facility] [address] [place] [phone] * Mammography Report 1 (10/09/2021 12:05 [...] [facility] Comment: Reference range: <100 Desirable range <100 mg/dL for primary prevention; <70 mg/dL for patients with CHD or diabetic patients with > or = 2 CHD risk factors. LDL-C is now calculated using the Hi-Luz Elena calculation, which is a validated novel method providing better accuracy than the Friedewald equation in the estimation of LDL-C. Hi SS et al. ROXY. 2013;310(19): 4921-1844 (http://education.[employer]Frankly/faq/HPL630) Non-HDL Cholesterol 175(H) <130 mg/dL (calc) [facility] Comment: For patients with diabetes plus 1 major ASCVD risk factor, treating to a non-HDL-C goal of <100 mg/dL (LDL-C of <70 mg/dL) is considered a therapeutic option. Triglycerides 237(H) <150 mg/dL [facility] Comment: If a non-fasting specimen was collected, consider repeat triglyceride testing on a fasting specimen if clinically indicated. Cory et al. J. of Clin. Lipidol. 2015;9:129-169. 09/14/2021 2:52 PM EST Mackenzie Estrada MD LAB BLOOD ORDERABLES Final Res ult [facility] [address] [place] [address], * Colonoscopy (10/28/2017) Colonoscopy Normal Normal Narrative Cecilia Henriquez - 10/28/2017 Recommended 10 year follow up ([facility] [place] Historical Provider HEALTH MAINTENANCE Edited Result - Final from Last 3 Months or Most Recently Relevant to Health Maintenance Insurance [facility] C3 DENTAL-[facility] MEDICAID STAND ADULT Care Teams Policy Specialist Relationship Specialty Start Date End Date Mackenzie Estrada MD [address] [place] [phone] PCP - General Family Medicine 07/10/20 Hemalatha Pretty Lead Quality TechnicianRetail Account Manager 01/02/25
--- OUTSIDE RECORDS SUMMARY | 2025-03-27 14:28 | XMS_ITS | Encounter Summary ---
Author Organization [employer] Address [address] [facility] 7t [place] [address] Care Team Providers Care Sharepoint Solutions Architect Name Role Phone Mackenzie Estrada MD Primary Care Provider [phone] Casper Magaña RN Unavailable [phone] Ruth Ann Price Unavailable Unavailable Ruth Ann Price Unavailable Reason for Visit * Reason Comments Med Refill Encounter Details Date Type Department Care Team ([facility] st Contact Info) Description 06/03/2023 Refill [facility] [address] [place], [place] [phone] Mackenzie Estrada MD [address] [place], [place] [phone] Pain in both hands Social History Tobacco [...] Description 05/14/2025 9:45 AM EDT Office Visit [facility] [address] [place] [address] documented as of this encounter Goals Goal Patient Goal Type Associated Problems Recent Progress Patient-Stated? Author Quit using tobacco (cigarettes, smokeless, etc) Tobacco Use Corey Cornell, Bailey documented as of this encounter Visit Diagnoses Diagnosis Pain in both hands documented in this encounter Care Teams Sharepoint Solutions Architect Relationship Specialty Start Date End Date Mackenzie Estrada MD [address] [place] [address] PCP - General Family Medicine 07/10/20 Casper Magaña, JENNIFER [address] [place] [address] Registered Nurse Family Medicine 01/18/25 01/18/25 Ruth Ann Price 02/19/25 02/19/25 Ruth Ann Price 02/19/25 02/28/25 Hemalatha Pretty Scow HandPuppy Walker 01/02/25 documented as of this encounter
--- OUTSIDE RECORDS SUMMARY | 2025-03-27 14:28 | XMS_ITS | Encounter Summary ---
Author Organization [employer] [facility] Address [address] [facility] [address] [place] [address] Care Team Providers Care Software Quality Analyst Name Role Phone Mackenzie Estrada MD Primary Care Provider [phone] Casper Magaña RN Unavailable [phone] Ruth Ann Price Unavailable Unavailable Ruth Ann Price Unavailable Encounter Details Date Type Department Care Team ([facility] Contact Info) Description 03/29/2023 Abstract [facility] [address] [place], [place] [phone] Cecilia Henriquez Social History Tobacco Use Types [...] Description 05/14/2025 9:45 AM EDT Office Visit [facility] [address] [place], [place] [phone] documented as of this encounter Procedures Procedure Name Priority Date/Time Associated Diagnosis Comments COLONOSCOPY Routine 10/28/2017 documented in this encounter Results * Colonoscopy (10/28/2017) Colonoscopy Normal Normal Narrative Cecilia Henriquez - 10/28/2017 Recommended 10 [place] [place] Historical Provider HEALTH MAINTENANCE Edited Result - Final documented in this encounter Visit Diagnoses Not on filedocumented in this encounter Care Teams Software Quality Analyst Relationship Specialty Start Date End Date Mackenzie Estrada MD [address] [place] [address] PCP - General Family Medicine 07/10/20 Casper Magaña, JENNIFER [address] [place] [address] Registered Nurse Family Medicine 01/18/25 01/18/25 Ruth Ann Price 02/19/25 02/19/25 Ruth Ann Price 02/19/25 02/28/25 Hemalatha Pretty Mushroom PickerMechanical And Auto Body Car Checker 01/02/25 documented as of this encounter
--- OUTSIDE RECORDS SUMMARY | 2025-03-27 14:28 | XMS_ITS | Encounter Summary ---
Author Organization [employer] Address [address] 7t [place] [address] Care Team Providers Care Enterprise Cloud Architect Name Role Phone Mackenzie Estrada MD Primary Care Provider [phone] Casper Magaña RN Unavailable [phone] Ruth Ann Price Unavailable Unavailable Ruth Ann Price Unavailable Encounter Details Date Type Department Care Team (Late st Contact Info) Description 06/01/2023 Orders Only [facility] [address] [place] [address] Mackenzie Estrada MD [address] [place], [place] [phone] Encounter for smoking cessation counseling (Primary Dx) [...] Description 05/14/2025 9:45 AM EDT Office Visit [facility] [address] [place] [address] documented as of this encounter Goals Goal Patient Goal Type Associated Problems Recent Progress Patient-Stated? Author Quit using tobacco (cigarettes, smokeless, etc) Tobacco Use Croey Cornell, KelechiD documented as of this encounter Visit Diagnoses Diagnosis Encounter for smoking cessation counseling- Primary documented in this encounter Care Teams Enterprise Cloud Architect Relationship Specialty Start Date End Date Mackenzie Estrada MD [address] [place] [address] PCP - General Family Medicine 07/10/20 Casper Magaña, JENNIFER [address] [place] [address] Registered Nurse Family Medicine 01/18/25 01/18/25 Ruth Ann Price 02/19/25 02/19/25 Ruth Ann Price 02/19/25 02/28/25 Hemalatha Pretty Engineering Project ManagerAdjunct Trainer 01/02/25 documented as of this encounter
--- OUTSIDE RECORDS SUMMARY | 2025-03-27 14:28 | XMS_ITS | Encounter Summary ---
Author Organization [employer] Address [address] [facility] 7t [place] [address] Care Team Providers Care Parts Counter Clerk Name Role Phone Mackenzie Estrada MD Primary Care Provider [phone] Casper Magaña RN Unavailable [phone] Ruth Ann Price Unavailable Unavailable Ruth Ann Price Unavailable Reason for Visit * Reason Comments Med Refill Encounter Details Date Type Department Care Team ([facility] st Contact Info) Description 07/26/2023 Refill [facility] [address] [place] [address] Mark Yang MD [address] [place] [address] Pain in both hands Social History Tobacco [...] Office Visit [facility] [address] [place] [address] documented as of this encounter Goals Goal Patient Goal Type Associated Problems Recent Progress Patient-Stated? Author Quit using tobacco (cigarettes, smokeless, etc) Tobacco Use Corey Cornell, Bailey documented as of this encounter Visit Diagnoses Diagnosis Pain in both hands documented in this encounter Care Teams Parts Counter Clerk Relationship Specialty Start Date End Date Mackenzie Estrada MD [address] [place] [address] PCP - General Family Medicine 07/10/20 Casper Magaña, JENNIFER [address] [place] [address] Registered Nurse Family Medicine 01/18/25 01/18/25 Ruth Ann Price 02/19/25 02/19/25 Ruth Ann Price 02/19/25 02/28/25 Hemalatha Pretty House Furnishings SupervisorControl Operator Flow Coat 01/02/25 documented as of this encounter
--- OUTSIDE RECORDS SUMMARY | 2025-03-27 14:28 | XMS_ITS | Encounter Summary ---
Author Organization [employer] [facility] Address [address] [facility] [address] [place] [address] Care Team Providers Care Electronic Train Control Technician Name Role Phone Mackenzie Estrada MD Primary Care Provider [phone] Casper Magaña RN Unavailable [phone] Ruth Ann Price Unavailable Unavailable Ruth Ann Price Unavailable Reason for Visit * Reason Comments Med Refill Encounter Details Date Type Department Care Team ([facility] Contact Info) Description 08/25/2022 Refill [facility] [address] [place], [place] [phone] Mackenzie Estrada MD [address] [place], [place] [phone] Pain in both hands Social History Tobacco [...] Upcoming Encounters Date Type Department Care Team ([facility] Contact Info) Description 05/14/2025 9:45 AM EDT Office Visit [facility] [address] [place] [address] documented as of this encounter Visit Diagnoses Diagnosis Pain in both hands documented in this encounter Care Teams Electronic Train Control Technician Relationship Specialty Start Date End Date Mackenzie Estrada MD [address] [place] [address] PCP - General Family Medicine 07/10/20 Casper Magaña, JENNIFER [address] [facility] [place] [address] Registered Nurse Family Medicine 01/18/25 01/18/25 Ruth Ann Price 02/19/25 02/19/25 Ruth Ann Price 02/19/25 02/28/25 Hemalatha Pretty Net FinisherMorphologist 01/02/25 documented as of this encounter
--- OUTSIDE RECORDS SUMMARY | 2025-03-27 14:28 | XMS_ITS | Encounter Summary ---
Author Organization [employer] Address [address] [facility] 7t [place] [address] Care Team Providers Care Painter Supervisor Name Role Phone Mackenzie Estrada MD Primary Care Provider [phone] Casper Magaña RN Unavailable [phone] Ruth Ann Price Unavailable Unavailable Ruth Ann Price Unavailable Reason for Visit * Reason Comments Med Refill Encounter Details Date Type Department Care Team ([facility] st Contact Info) Description 06/02/2023 Refill [facility] [address] [place] [address] Mackenzie Estrada MD [address] [place], [place] [phone] Pain in both hands Social History Tobacco [...] Description 05/14/2025 9:45 AM EDT Office Visit [facility] [address] [place] [address] documented as of this encounter Goals Goal Patient Goal Type Associated Problems Recent Progress Patient-Stated? Author Quit using tobacco (cigarettes, smokeless, etc) Tobacco Use Corey Cornell, Bailey documented as of this encounter Visit Diagnoses Diagnosis Pain in both hands documented in this encounter Care Teams Painter Supervisor Relationship Specialty Start Date End Date Mackenzie Estrada MD [address] [place] [address] PCP - General Family Medicine 07/10/20 Casper Magaña, JENNIFER [address] [place] [address] Registered Nurse Family Medicine 01/18/25 01/18/25 Ruth Ann Price 02/19/25 02/19/25 Ruth Ann Price 02/19/25 02/28/25 Hemalatha Pretty Military Pay ClerkFence Installer 01/02/25 documented as of this encounter
--- OUTSIDE RECORDS SUMMARY | 2025-03-27 14:28 | XMS_ITS | Encounter Summary ---
Author Organization [employer] Address [address] [facility] 7t [place] [address] Care Team Providers Care Student Success Coach Name Role Phone Mackenzie Estrada MD Primary Care Provider [phone] Casper Magaña RN Unavailable [phone] Ruth Ann Price Unavailable Unavailable Ruth Ann Price Unavailable Reason for Visit * Reason Onset Date Comments Appointment Request 08/16/2023 Encounter Details Date Type Department Care Team ([facility] Contact Info) Description 08/16/2023 Telephone [facility] [address] [place] [address] Mackenzie Estrada MD [address] [place] [address] Appointment Request Social History Tobacco Use Types [...] be seen today. Please contact pt @ [phone] Iranian Speaker documented in this encounter Plan of Treatment Upcoming Encounters Date Type Department Care Team ([facility] st Contact Info) Description 05/14/2025 9:45 AM EDT Office Visit [facility] [address] [place] [address] documented as of this encounter Goals Goal Patient Goal Type Associated Problems Recent Progress Patient-Stated? Author Quit using tobacco (cigarettes, smokeless, etc) Tobacco Use No Corey Lin, PharmD documented as of this encounter Visit Diagnoses Not on filedocumented in this encounter Care Teams Student Success Coach Relationship Specialty Start Date End Date Mackenzie Estrada MD [address] [place] [address] PCP - General Family Medicine 07/10/20 Casper Magaña, JENNIFER [address] [place] [address] Registered Nurse Family Medicine 01/18/25 01/18/25 Ruth Ann Price 02/19/25 02/19/25 Ruth Ann Price 02/19/25 02/28/25 Hemalatha Pretty Hip Hop ArtistManufacturing Maintenance Technician 01/02/25 documented as of this encounter
--- OUTSIDE RECORDS SUMMARY | 2025-03-27 14:28 | XMS_ITS | Encounter Summary ---
Author Organization [employer] Address 75 [facility] 7t [place] [address] Care Team Providers Care Animal Caretaker Name Role Phone Mackenzie Estrada MD Primary Care Provider Casper Magaña RN Unavailable [phone] Ruth Ann Price Unavailable Unavailable Ruth Ann Price Unavailable Reason for Visit * Reason Onset Date Comments Triage 11/10/2022 Encounter Details Date Type Department Care Team ([facility] st Contact Info) Description 11/10/2022 Telephone [facility] [address] [place] [address] Mackenzie Estrada MD [address] [place] [address] Triage Social History Tobacco Use Types Packs/Day [...] - 11/11/2022 11:10 AM EDT TC to [phone] via [employer] interpreters in regards to below message. Pt reports she went to [facility] since [facility] did not return her call. RN informed pt triage nurses attempted to call pt x2 however pt did not answer. 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 RN asked if [facility] informed the pt they were going to order it however pt was not sure. RN placed pt on hold and called [facility] pharmacy who reports it is supposed to be arriving in store today and pt should call around 3pm to inquire if it was received and ready for forklift picker. Pt verbalized understanding. RN advised pt if her rash does not resolve with medication and her pain does not resolve to call [facility] to schedule an appt for further evaluation. Pt verbalized understanding. Pt to F/U PRN. RN has printed ED note and placed in scan bin * Telephone Encounter - Chika Ingram LPN - 11/10/2022 2:30 PM EDT Triage call returned to patient with [email or web address] automation controls specialist [phone] to listed number x 2 no answer. Left message to return call to [phone]. Team Nurses tasked to follow with patient [...] Description 05/14/2025 9:45 AM EDT Office Visit [facility] [address] [place] [address] documented as of this encounter Visit Diagnoses Not on filedocumented in this encounter Care Teams Animal Caretaker Relationship Specialty Start Date End Date Mackenzie Estrada MD [address] [place] [address] PCP - General Family Medicine 07/10/20 Casper Magaña, RN [address] [place] [address] Registered Nurse Family Medicine 01/18/25 01/18/25 Ruth Ann Price 02/19/25 02/19/25 Ruth Ann Price 02/19/25 02/28/25 Hemalatha Pretty Gymnastics Coach Or InstructorChemical Worker 01/02/25 documented as of this encounter
--- OUTSIDE RECORDS SUMMARY | 2025-03-27 14:28 | XMS_ITS | Encounter Summary ---
Author Organization [employer] Address [address] [facility] [address] 7t [place] [address] Care Team Providers Care Nursing Scheduler Name Role Phone Mackenzie Estrada MD Primary Care Provider [phone] Casper Magaña RN Unavailable Ruth Ann Price Unavailable Unavailable Ruth Ann Price Unavailable Encounter Details Date Type Department Care Team ([facility] st Contact Info) Description 05/10/2024 Orders Only [facility] [address] [place] [address] Mackenzie Estrada MD [address] [place], [place] [phone] Social History Tobacco Use Types Packs/Day Years [...] Description 05/14/2025 9:45 AM EDT Office Visit [facility] [address] [place] [address] documented as of this encounter Goals Goal [...] documented as of this encounter Care Teams Nursing Scheduler Relationship Specialty Start Date End Date Mackenzie Estrada MD [address] [place] [address] PCP - General Family Medicine 07/10/20 Casper Magaña, JENNIFER [address] [place] [address] Registered Nurse Family Medicine 01/18/25 01/18/25 Ruth Ann Price 02/19/25 02/19/25 Ruth Ann Price 02/19/25 02/28/25 Hemalatha Pretty Special Effects ArtistVoip Network Technician 01/02/25 documented as of this encounter
--- OUTSIDE RECORDS SUMMARY | 2025-03-27 14:28 | XMS_ITS | Encounter Summary ---
Author Organization [employer] Address 75 [facility] 7t [place] [address] Care Team Providers Care Elementary Classroom Teacher Name Role Phone Mackenzie Estrada MD Primary Care Provider [phone] Casper Magaña RN Unavailable [phone] Ruth Ann Price Unavailable Unavailable Ruth Ann Price Unavailable Reason for Visit * Reason Comments Med Refill Encounter Details Date Type Department Care Team ([facility] st Contact Info) Description 07/27/2023 Refill [facility] [address] [place] [address] Mark Yang MD [address] [place] [address] Pain in both hands Social History Tobacco [...] Description 05/14/2025 9:45 AM EDT Office Visit [facility] [address] [place] [address] documented as of this encounter Goals Goal Patient Goal Type Associated Problems Recent Progress Patient-Stated? Author Quit using tobacco (cigarettes, smokeless, etc) Tobacco Use Corey Cornell, Bailey documented as of this encounter Visit Diagnoses Diagnosis Pain in both hands documented in this encounter Care Teams Elementary Classroom Teacher Relationship Specialty Start Date End Date Mackenzie Estrada MD [address] [place] [address] PCP - General Family Medicine 07/10/20 Casper Magaña, JENNIFER [address] [place] [address] Registered Nurse Family Medicine 01/18/25 01/18/25 Ruth Ann Price 02/19/25 02/19/25 Ruth Ann Price 02/19/25 02/28/25 Hemalatha Pretty Architecture InternshipCereal Supervisor 01/02/25 documented as of this encounter
--- OUTSIDE RECORDS SUMMARY | 2025-03-27 14:28 | XMS_ITS | Encounter Summary ---
Author Organization [employer] Address [address] [facility] [address] 7[address] [place] [address] Care Team Providers Care Dental Aide Name Role Phone Mackenzie Estrada MD Primary Care Provider [phone] Casper Magaña RN Unavailable Ruth Ann Price Unavailable Unavailable Ruth Ann Price Unavailable Reason for Visit * Reason Comments Med Refill Encounter Details Date Type Department Care Team ([facility] Contact Info) Description 09/22/2022 Refill [facility] [address] [place] [address] Sarika Palacios ANP [address] [place] [address] Tinea pedis of both feet Social History [...] Upcoming Encounters Date Type Department Care Team ([facility] Contact Info) Description 05/14/2025 9:45 AM EDT Office Visit [facility] [address] [place] [address] documented as of this encounter Visit Diagnoses Diagnosis Tinea pedis of both feet documented in this encounter Care Teams Dental Aide Relationship Specialty Start Date End Date Mackenzie Estrada MD [address] [place] [address] PCP - General Family Medicine 07/10/20 Casper Magaña RN [address] [place] [address] Registered Nurse Family Medicine 01/18/25 01/18/25 Ruth Ann Price 02/19/25 02/19/25 Ruth Ann Price 02/19/25 02/28/25 Hemalatha Pretty Rn Document ImprovementUpholstery Parts Sorter 01/02/25 documented as of this encounter
--- OUTSIDE RECORDS SUMMARY | 2025-03-27 14:28 | XMS_ITS | Encounter Summary ---
Author Organization [employer] Address [address] [facility] [address] 7t [place] [address] Care Team Providers Care Record Press Supervisor Name Role Phone Mackenzie Estrada MD Primary Care Provider [phone] Casper Magaña RN Unavailable [phone] Ruth Ann Price Unavailable Unavailable Ruth Ann Price Unavailable Encounter Details Date Type Department Care Team ([facility] st Contact Info) Description 05/21/2024 Telephone [facility] [address] [place] [address] Mackenzie Estrada MD [address] [place], [place] [phone] Social History Tobacco Use Types Packs/Day Years [...] Description 05/14/2025 9:45 AM EDT Office Visit [facility] [address] [place] [address] documented as of this encounter Goals Goal [...] documented as of this encounter Care Teams Record Press Supervisor Relationship Specialty Start Date End Date Mackenzie Estrada MD [address] [place] [address] PCP - General Family Medicine 07/10/20 Casper Magaña, JENNIFER [address] [place] [address] Registered Nurse Family Medicine 01/18/25 01/18/25 Ruth Ann Price 02/19/25 02/19/25 Ruth Ann Price 02/19/25 02/28/25 Hemalatha Pretty Application Support LeadTheoretical Physics Teacher 01/02/25 documented as of this encounter
--- OUTSIDE RECORDS SUMMARY | 2025-03-27 14:28 | XMS_ITS | Encounter Summary ---
Author Organization [employer] Address 75 [facility] 7t [place] [address] Care Team Providers Care Cordwainer Name Role Phone Mackenzie Estrada MD Primary Care Provider [phone] Casper Magaña RN Unavailable [phone] Ruth Ann Price Unavailable Unavailable Ruth Ann Price Unavailable Reason for Visit * Reason Onset Date Comments Hospital Follow-up 02/24/2024 Encounter Details Date Type Department Care Team ([facility] st Contact Info) Description 02/24/2024 Telephone [facility] [address] [place] [address] Mackenzie Estrada MD [address] [place], [place] [phone] Hospital Follow-up Social History Tobacco Use Types [...] the past 12 months, has t he [employer], gas, oil or water Whi threatened to shut off services in your [...] from pt requesting a HDF appt. Hospital: [facility] Date of admission: 02/19 Discharge date: 02/23 Diagnosed: Rectal Bleeding Micronesian Speaker documented in this encounter Plan of Treatment Upcoming Encounters Date Type Department Care Team (Late st Contact Info) Description 05/14/2025 9:45 AM EDT Office Visit [facility] [address] [place] [address] documented as of this encounter Goals Goal Patient Goal Type Associated Problems Recent Progress Patient-Stated? Author Quit using tobacco (cigarettes, smokeless, etc) Tobacco Use No Corey Lin, PharmD documented as of this encounter Visit Diagnoses Not on filedocumented in this encounter Care Teams Cordwainer Relationship Specialty Start Date End Date Mackenzie Estrada MD [address] [place] [address] PCP - General Family Medicine 07/10/20 Casper Magaña, RN [address] [place] [address] [place] [address] Registered Nurse Family Medicine 01/18/25 01/18/25 Ruth Ann Price 02/19/25 02/19/25 Ruth Ann Price 02/19/25 02/28/25 Hemalatha Pretty SommelierInstrumentation Instructor 01/02/25 documented as of this encounter
--- OUTSIDE RECORDS SUMMARY | 2025-03-27 14:28 | XMS_ITS | Clinical Summary ---
Author Organization [facility] Address [address] [place] [address] Support Name Relationship Address Phone Brayden Hernandez Emergency Contact [address] [place] [id number] Care Team Providers Care Grinder Outside Diameter Name Role Phone Abdullahi Lizarraga MD Primary Care Provider [phone] Allergies Active Allergy Reactions Criticality Noted Date [...] age to complete this topic Care Teams Grinder Outside Diameter Relationship Specialty Start Date End Date Abdullahi Lizarraga MD [address] [place] [address] PCP - General Nephrology 03/10/18
--- OUTSIDE RECORDS SUMMARY | 2025-03-27 14:28 | XMS_ITS | Encounter Summary ---
Author Organization [employer] Address [address] [facility] [address] 7t [place] [address] Care Team Providers Care Grass Cutter Name Role Phone Mackenzie Estrada MD Primary Care Provider [phone] Casper Magaña RN Unavailable [phone] Ruth Ann Price Unavailable Unavailable Ruth Ann Price Unavailable Encounter Details Date Type Department Care Team (Late st Contact Info) Description 04/10/[address] [facility] [address] [place] [address] Mackenzie Estarda MD [address] [place], [place] [phone] Social History Tobacco Use Types Packs/Day Years [...] 05/14/2025 9:45 AM EDT Office Visit [facility] [address] [place] [address] documented as of this encounter Goals Goal Patient Goal Type Associated Problems Recent Progress Patient-Stated? Author Quit using tobacco (cigarettes, smokeless, etc) Tobacco Use Corey Cornell, Bailey documented as of this encounter Visit Diagnoses Not on filedocumented in this encounter Care Teams Grass Cutter Relationship Specialty Start Date End Date Mackenzie Estrada MD [address] [place] [address] PCP - General Family Medicine 07/10/20 Casper Magaña, JENNIFER [address] [place] [address] Registered Nurse Family Medicine 01/18/25 01/18/25 Ruth Ann Price 02/19/25 02/19/25 Ruth Ann Price 02/19/25 02/28/25 Hemalatha Pretty Staff Submarine Warfare OfficerProduce Team Lead 01/02/25 documented as of this encounter
--- OUTSIDE RECORDS SUMMARY | 2025-03-27 14:28 | XMS_ITS | Encounter Summary ---
Author Organization [employer] Address [address] [facility] [address] 7[address] [place] [address] Care Team Providers Care Per Diem Registered Nurse Name Role Phone Mackenzie Estrada MD Primary Care Provider [phone] Casper Magaña RN Unavailable [phone] Ruth Ann Price Unavailable Unavailable Ruth Ann Price Unavailable Reason for Visit * Reason Comments Med Refill Encounter Details Date Type Department Care Team ([facility] st Contact Info) Description 07/20/2024 Refill [facility] [address] [place] [address] Mackenzie Estrada MD [address] [place], [place] [phone] 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 [...] 05/14/2025 9:45 AM EDT Office Visit [facility] [address] [place] [address] documented as of this encounter Goals Goal [...] documented as of this encounter Care Teams Per Diem Registered Nurse Relationship Specialty Start Date End Date Mackenzie Estrada MD [address] [place] [address] PCP - General Family Medicine 07/10/20 Casper Magaña RN [address] [place] [address] [place] [address] Registered Nurse Family Medicine 01/18/25 01/18/25 Ruth Ann Price 02/19/25 02/19/25 Ruth Ann Price 02/19/25 02/28/25 Hemalatha Pretty Lye BoilerWire Stitcher 01/02/25 documented as of this encounter
--- OUTSIDE RECORDS SUMMARY | 2025-03-27 14:28 | XMS_ITS | Encounter Summary ---
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
--- OUTSIDE RECORDS SUMMARY | 2025-03-27 14:28 | XMS_ITS | Encounter Summary ---
Author Organization [employer] Address [address] [facility] [address] 7t [place] [address] Care Team Providers Care Supervisor Tunnel Heading Name Role Phone Mackenzie Estrada MD Primary Care Provider [phone] Casper Magaña RN Unavailable [phone] Ruth Ann Price Unavailable Unavailable Ruth Ann Price Unavailable Reason for Visit * Reason Comments Med Refill Encounter Details Date Type Department Care Team ([facility] st Contact Info) Description 08/26/2023 Refill [facility] [address] [place] [address] Sisi Kennedy FNP [address] [place] [address] Viral upper respiratory tract infection Social History [...] Description 05/14/2025 9:45 AM EDT Office Visit [facility] [address] [place] [address] documented as of this encounter Goals Goal Patient Goal Type Associated Problems Recent Progress Patient-Stated? Author Quit using tobacco (cigarettes, smokeless, etc) Tobacco Use No Corey Lin, Bailey documented as of this encounter Visit Diagnoses Diagnosis Viral upper respiratory tract infection Acute upper respiratory infections of unspecified site documented in this encounter Care Teams Supervisor Tunnel Heading Relationship Specialty Start Date End Date Mackenzie Estrada MD [address] [place] [address] PCP - General Family Medicine 07/10/20 Casper Magñaa, JENNIFER [address] [place] [address] Registered Nurse Family Medicine 01/18/25 01/18/25 Ruth Ann Price 02/19/25 02/19/25 Ruth Ann Price 02/19/25 02/28/25 Hemalatha Pretty Pattern MarkerPrint Production Coordinator 01/02/25 documented as of this encounter
[2025-03-27 14:30] VITALS: BP 100/62; PULSE 60; BMI 30.5
== END 2025-03-27 15:04 | disposition home or self-care (01) ==
LOC: HO.HCS 13:40
PROVIDERS: PCP General Practice; Visit Provider Internal Medicine Cardiovascular Disease
DX: I21.4 Non-ST elevation (NSTEMI) myocardial infarction (principal)
CPT/HCPCS: 93010; 99214

== ENCOUNTER → 2025-03-27 13:40 | Outpatient (BNVA) | payer MEDICAID, SELFPAY | PROVIDERS: PCP General Practice; Visit Provider Internal Medicine Cardiovascular Disease | DX: I21.4 Non-ST elevation (NSTEMI) myocardial infarction (principal); Z86.79 Personal history of other diseases of the circulatory system; M05.9 Rheumatoid arthritis with rheumatoid factor, unspecified; F17.210 Nicotine dependence, cigarettes, uncomplicated | CPT/HCPCS: 93005; 99212 ==

== ENCOUNTER 2025-03-28 07:35 | Emergency (ER) | payer MEDICAID, SELFPAY ==
[2025-03-28 07:44] VITALS: BP 142/73; PULSE 79; RESP 20; TEMP 36.6; O2SAT 97; BMI 30.3
--- NOTE | 2025-03-28 08:53 | ED_ITS ---
HPI - General Adult General Chief complaint: General Medical Stated complaint: Neck pain R side traveling to arm Time Seen by Provider: 03/28/25 08:52 Source: patient and per diem interpreter (all interactions with this patient were facilitate with an [facility] aerial photograph interpreter) Mode of arrival: ambulatory Limitations: language barrier (all interactions with this patient were facilitate with an [facility] aerial photograph interpreter) History of Present Illness ED Provider: Tessa Olguin PA-C HPI narrative: Patient is a 49 year old assigned female at with a history of fibromyalgia, DVT on anti-coags, NSTEMI, and ischemic cardiomyopathy presenting to the emergency department today with right sided neck pain that radiates down into her shoulder. Patient states that over the last day she has had right sided shoulder pain that starts in her neck and radiates all the way down to her wrist. Patient states that the pain is much more significant when she attempts to life the right shoulder. Patient denies any recent trauma, patient denies any chest pain or shortness of breath. Related Data Home Medications ?Medication ?Instructions ?Recorded ?Confirmed alprazolam 1 mg tablet 1 mg PO BEDTIME PRN Anxiety 12/10/22 03/27/25 albuterol sulfate 90 mcg/actuation 2 puff inhalation Q 6H PRN Wheezing 02/20/24 03/27/25 aerosol inhaler gabapentin 400 mg capsule 400 mg PO TID 04/23/2403/27 trazodone 150 mg tablet 150 mg PO BEDTIME PRN anxiet y/sleep 04/23/24 03/27/25 cholecalciferol (vitamin D3) 25 25 mcg PO DAILY 03/27/25 mcg (1,000 unit) capsule (Vitamin D3) risperidone 1 mg tablet 0.5 mg PO DAILY PRN 05/27/24 03/27/25 anxiety/agitation/paranoia apixaban 5 mg tablet (Eliquis) 5 mg PO BID 06/12/24 atorvastatin 80 mg tablet 80 mg PO DAILY 06/12/2403/02 ferrous sulfate 325 mg (65 mg 325 mg PO QAM 06/12/24 0 03/27/25 iron) tablet sertraline 50 mg tablet (Zoloft) 75 mg PO DAILY 03/27/25 umeclidinium 62.5 mcg/actuation 1 inh inhalation DAILY 06/12/24 03/27/25 blister powder for inhalation (Incruse Ellipta) ursodiol 250 mg tablet 250 mg PO BID 06/12/2403/27 cetirizine 10 mg tablet 10 mg PO QAM neuropathic wesley n 08/27/24 03/27/25 clopidogrel 75 mg tablet 75 mg PO DAILY 08/27/24/02/22 famotidine 20 mg tablet 20 mg PO BID 08/27/24 metoprolol succinate 50 mg 50 mg PO DAILY 08/27/24 tablet,extended release 24 hr nicotine 14 mg/24 hr daily 1 patch topical QAM 5 03/27/25 transdermal patch Previous Rx's ?Medication ?Instructions ?Recorded ascorbic acid (vitamin C) 500 mg 1,000 mg (2 x 500 mg) PO QAM #180 05/28/24 tablet (Vitamin C) tabs vitamin A 3,000 mcg (10,000 unit) 1 cap PO QAM #90 cap s 11/29/24 capsule acetaminophen 500 mg tablet 1,000 mg (2 x 500 mg) PO Q 8H PRN 01/17/25 (Tylenol Extra Strength) pain #30 tabs docusate sodium 100 mg capsule 100 mg PO BID #60 caps 02/28/25 prednisone 20 mg tablet 20 mg PO DAILY #30 tabs 03/25 sulfamethoxazole 400 1 tab PO DAILY #30 tabs 03/25 mg-trimethoprim 80 mg tablet (Bactrim) cyclobenzaprine 5 mg tablet 5 mg PO TID PRN muscle spa sm 7 03/28/25 days #21 tabs prednisone 20 mg tablet 20 mg PO DAILY 7 days #7 tab s 03/28/25 Allergies Allergy/AdvReac Type Severity Reaction Status Date / Time almond (ALMONDS) Allergy Severe ANAPHYLAXIS Verified 03/28/25 07:50 adhesive tape (ADHESIVE TAPE) Allergy Intermediate RASH Verified 03/28/25 07:50 morphine (MORPHINE) Allergy Intermediate GI UPSET, Verified 03/28/25 07:50 difficulty breathing leflunomide AdvReac Intermediate twitching Verified 03/28/25 07:50 tramadol (TRAMADOL) AdvReac Unknown NAUSEA & Verified 03/28/25 07:50 VOMITING Review of Systems Constitutional: Constitutional: Reports as per HPI Eyes: Eyes: Reports as per HPI ENT: Reports as per HPI Cardiovascular: Cardiovascular: Reports as per HPI Respiratory: Respiratory: Reports as per HPI Gastrointestinal: Gastrointestinal: Reports as per HPI Genitourinary: Genitourinary: Reports as per HPI Musculoskeletal: Musculoskeletal: Reports as per HPI Integumentary/Breasts: Skin/Breast: Reports as per HPI Neurologic: Reports as per HPI Psychiatric: Psychiatric: Reports as per HPI Endocrine: Endocrine: Reports as per HPI Hematologic/Lymphatic: Hematologic/Lymphatic: Reports as per HPI Allergic/Immunologic: Allergic/Immunologic: Reports as per HPI [facility] Past Medical History Attestation statement: The following information was validated with the patient. Source: old records reviewed and nursing notes reviewed Medical History PAD (peripheral artery disease) Skin lesion Anxiety Achilles tendinitis Superficial femoral artery occlusion Knee pain, left Depression Hx of peripheral pulmonary artery stenosis History of chemotherapy Cancer of heart Bone cancer Lung cancer Iron deficiency Seropositive rheumatoid arthritis Bleeding hemorrhoid Degeneration, intervertebral disc, lumbar Chronic GERD Degeneration of intervertebral disc at C4-C5 level Osteoarthritis of spine with radiculopathy, lumbar region Fibromyalgia Esophageal dysphagia Vitamin D deficiency Systemic lupus erythematosus Seropositive rheumatoid arthritis Rheumatoid arthritis involving multiple sites Gallstones Stress incontinence in female Nocturia Urgency-frequency syndrome De Quervain's disease (tenosynovitis) Depressive disorder Acute arthritis Hodgkin disease Surgical History History of heart surgery History of surgical removal of skin lesion (~07/13/23) History of angioplasty of vein History of biopsy H/O tubal ligation Hx of endoscopy Hx laparoscopic cholecystectomy Hx of colonoscopy History of esophagogastroduodenoscopy (EGD) History of repair of inguinal hernia History of lymph node dissection of left axilla Family History Family History Maternal Grandmother Ovarian cancer Social History Social History Household Members: Significant Other Housing: Apartment Are you a primary customer care voice consultant to a significant other at home: No Unable to assess alcohol history related to: Unknown Alcohol intake: never Comment: son at bedside Patient Tobacco Use Status: Never used Tobacco Tobacco use type: Cigarette Cigarette Packs Per Day: 1 Cigarettes Per Day: 20.0 Substance Use Type: Marijuana Advance Directives: Yes Advance Directives on File: Yes Advance Directives Date on File: 02/24/24 service: No Current occupational status: disabled 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 Physical Exam ED Vital Signs: Vital Signs - 24 hr 03/28/25 07:44 03/28/25 10:44 Temperature 97.9 F 97.9 F Pulse Rate 79 79 Respiratory Rate 20 20 Blood Pressure 142/73 H 142/73 H Pulse Oximetry 97 97 Oxygen Delivery Method Room Air Room Air BMI result Body Mass Index 30.3 Const General: cooperative, no acute distress, alert and awake Nutritional Appearance: well nourished Orientation/consciousness: patient oriented x3 HENMT Head: Yes normal to inspection and Yes atraumatic Ears: hearing grossly normal bilaterally and external ears normal General nose exam: Normal external nose present, no nasal discharge noted and no epistaxis Face and sinus: Yes normal facial exam, No abrasion and No laceration Mouth: Normal oral and palatal mucosa present, no drooling and no muffled voice Eyes General: appearance normal, both eyes and all related structures Periorbital: periorbital findings normal Eyelids: Yes eyelids normal Conjunctivae: conjunctivae normal Pupils: Equal, round and reactive pupils present EOM: EOMs intact bilaterally Neck Neck: Yes normal visual inspection and Yes full ROM Resp Effort & Inspection: normal respiratory effort and able to speak in complete sentences Neuro General: patient oriented x3, moves all extremities and CN's II-XI intact bilaterally Cranial nerves: Yes Equal, round and reactive pupils present Cognition (Neuro): normal cognition Extrem Other: decreased range of motion of the right shoulder secondary to pain General: Yes normal to inspection and Yes capillary refill normal Psych Appearance: grossly normal Mental Status: mental status grossly normal Affect: normal affect Attitude: cooperative Thought process: Normal thought process present Thought content: Normal thought content present Insight: Good insight present (Psych) Medications Administered Discontinued Medications Generic Name Dose Route Start Last Admin Trade Name Freq PRN Reason Stop Dose Admin Cyclobenzaprine HCl 5 mg 03/28/25 09:38 03/28/25 10:27 Cyclobenzaprine Hcl 5 Mg Tablet PO 03/28/25 09:39 5 mg ONCE ONE Administration Methylprednisolone Sodium Succinate 60 mg 03/28/25 09:38 03/28/25 10:26 Methylprednisolone Sod Succ 125 Mg/2 Ml Vial IM 03/28/25 09:39 60 mg ONCE ONE Administration Medical Decision Making Medical Decision Making MDM Narrative: Patient is a 49 year old assigned female at with a history of fibromyalgia, DVT on anti-coags, NSTEMI, and ischemic cardiomyopathy presenting to the emergency department today with right sided neck pain that radiates down into her shoulder. Patient's physical exam was as noted in the physical exam portion of this note. Patient's clinical presentation is most consistent with cervical radiculopathy. I explained my physical exam findings to the patient. I answered all questions asked by the patient. Patient received solu-medrol and flexeril. Patient unable to have NSAIDs because of his AC medication use. I stressed the importance of the patient taking her medication as directed (either prescribed or as the over the counter packaging recommends). I stressed the importance of the patient following up with her primary care provider. I stressed the importance of the patient returning to the emergency department immediately if her symptoms were to worsen or if she were to develop any dizziness, shortness of breath, difficulty breathing, chest pain, blurry vision, loss of vision, nausea, vomiting, abdominal pain, fever, chills, back pain, or any other complaints. Patient verbalized agreement and understanding with this treatment plan and discharge. Differential Diagnosis Differential Diagnoses: The differential diagnosis associated with the presentation includes Cervical radiculoapthy Acute on chronic pain Admission/Observation Consideration of admission/observation: Escalation of care including admission/observation considered Patient would have been admitted to the hospital had her clinical presentation warranted hospital admission. Tests considered The following testing was considered but not selected: I considered obtaining a CBC, CMP, Troponin, chest x-ray, and EKG however - the patient's clinical presentation did not warrant this at this time. Discharge Plan Discharge Clinical Impression: Cervical radiculopathy Patient Disposition: Home, Self-Care Instructions: Cervical Radiculopathy (ED) Additional Instructions: IF you are prescribed home medications and/or you are taking over the counter medications at home- it is very important you continue to do so as prescribed / directed unless told otherwise. SI le recetan medicamentos y/o est? tomando medicamentos de venta yariel, es muy importante que contin?e haci?ndolo seg?n lo recetado/indicado a menos que le indiquen lo contrario. Follow up with your primary care provider. Return to the emergency department immediately if your symptoms worsen or if you develop any dizziness, shortness of breath, difficulty breathing, chest pain, blurry vision, loss of vision, nausea, vomiting, abdominal pain, fever, chills, back pain, or any other complaints. Rupali?seguimiento?con almanzar m?dico de atenci?n primaria. Acuda inmediatamente al servicio de urgencias si addie s?ntomas empeoran o si presenta falta de aliento, dificultad para respirar, dolor tor?cico, mareos, aturdimiento, dolor de espalda, dolor abdominal, fiebre, escalofr?os o cualquier otro s?ntoma. Please see the information below about our Patient Portal. If you are not yet enrolled in the [facility] Patient Portal, you will receive an enrollment email invitation following your visit to any [facility] setting. You may also self-enroll in the Patient Portal by visiting our website: [email or web address] The following information is required to access the Patient Portal: - Your [facility] Medical Record Number - Your personal home email address (must match what is in your electronic medical record, Registration staff can assist with this) - Name - Date of Capabilities of the Patient Portal: - Message some providers - View upcoming appointments - Access your health summary, medical history, and visit history - View current conditions and allergies - View procedure and lab results - View your medications, including guidelines, side effects, and precautions - Complete pre-appointment questionnaires requested by your provider - Ready summary reports of your office visits and procedures To access the Patient Portal Mobile Caridad, follow these directions: - Search PRX in the Caridad Store or [employer] Store - Download the Caridad - Search for [facility] - Enter your login/password Portal del paciente Si usted no esta inscrito en el portal de pacientes de [facility] y [facility], recibira moira invitacion de inscripcion despues de almanzar visita al [facility] o al [facility] via correo electronico. Tambien puede inscribirse voluntariamente en el portal de pacientes visitando nuestra pagina web: [email or web address] La siguiente informacion sera requerida para acceder al portal: - Almanzar anette de historia medica de [facility] - Almanzar direccion de correo electronico personal - Nombre - Fecha de nacimiento Capacidades: Las siguientes capacidades estan disponibles en el portal de pacientes: - Enviar mensajes a algunos doctores - Verificar proximas citas - Acceso a almanzar historial de ayad, registro medico e historial de visitas - Sky las condiciones actuales y alergias sky procedimientos y resultados del laboratorio - Sky addie medicamentos, incluyendo las pautas - Efectos secundarios y precauciones - Completar o llenar formularios / cuestionarios de - Citas solicitadas por almanzar doctor - Leer los resumenes de reportes medicos de addie visitas y procedimientos Yazan acceder a la aplicacion movil: - Sebas PRX en la Caridad Store o [employer] Store - Descargue la aplicacion - [facility] - Ingrese almanzar nombre de usuario / Contrasena Prescriptions: New cyclobenzaprine 5 mg tablet 5 mg PO TID PRN (Reason: muscle spasm) 7 Days Qty: 21 0RF prednisone 20 mg tablet 20 mg PO DAILY 7 Days Qty: 7 0RF No Action ascorbic acid (vitamin C) [Vitamin C] 500 mg tablet 1,000 mg PO QAM Qty: 180 2RF vitamin A 3,000 mcg (10,000 unit) capsule 1 cap PO QAM Qty: 90 1RF docusate sodium 100 mg capsule 100 mg PO BID Qty: 60 3RF atorvastatin 80 mg tablet 80 mg PO DAILY ferrous sulfate 325 mg (65 mg iron) tablet 325 mg PO QAM ursodiol 250 mg tablet 250 mg PO BID sertraline [Zoloft] 50 mg tablet 75 mg PO DAILY Eliquis 5 mg tablet 5 mg PO BID Incruse Ellipta 62.5 mcg/actuation blister with device 1 inh INHALATION DAILY acetaminophen [Tylenol Extra Strength] 500 mg tablet 1,000 mg PO Q8H PRN (Reason: pain) Qty: 30 0RF albuterol sulfate 90 mcg/actuation Hfa Aerosol Inhaler 2 puff INHALATION Q6H PRN (Reason: Wheezing) risperidone 1 mg tablet 0.5 mg PO DAILY PRN (Reason: anxiety/agitation/paranoia) cholecalciferol (vitamin D3) [Vitamin D3] 25 mcg (1,000 unit) capsule 25 mcg PO DAILY alprazolam 1 mg tablet 1 mg PO BEDTIME PRN (Reason: Anxiety) trazodone 150 mg tablet 150 mg PO BEDTIME PRN (Reason: anxiety/sleep) gabapentin 400 mg capsule 400 mg PO TID cetirizine 10 mg tablet 10 mg PO QAM clopidogrel 75 mg tablet 75 mg PO DAILY famotidine 20 mg tablet 20 mg PO BID metoprolol succinate 50 mg tablet extended release 24 hr 50 mg PO DAILY nicotine 14 mg/24 hr patch 24 hour 1 patch topical QAM prednisone 20 mg tablet 20 mg PO DAILY Qty: 30 1RF sulfamethoxazole-trimethoprim [Bactrim] 400-80 mg tablet 1 tab PO DAILY Qty: 30 4RF Referrals: Mackenzie Estrada MD [Primary Care Provider, Internal Medicine] Interventions: ED Discharge Assessment Last Done: 03/28/25 10:44 Discharge Date/Time: 03/28/25 10:44 Print Language: Mohawk
--- OUTSIDE RECORDS SUMMARY | 2025-03-28 10:32 | XMS_ITS | Encounter Summary ---
Author Organization [employer] Address [address] [facility] [address] [place] [address] Care Team Providers Care Sequins Slinger Name Role Phone Mackenzie Estrada MD Primary Care Provider [phone] Casper Magaña RN Unavailable [phone] Ruth Ann Price Unavailable Unavailable Ruth Ann Price Unavailable Reason for Visit * Reason Comments Med Refill Encounter Details Date Type Department Care Team ([facility] st Contact Info) Description 01/12/2024 Refill [facility] [address] [place], [place] [phone] Mackenzie Estrada MD [address] [place], [place] [phone] Rheumatoid arthritis involving multiple sites with positive rheumatoid factor ([facility]) Social History Tobacco Use Types Packs/Day Years [...] the past 12 months, has t he [employer], gas, oil or water company threatened to [...] 05/14/2025 9:45 AM EDT Office Visit [facility] [address] [place] [address] documented as of this encounter Goals Goal Patient Goal Type Associated Problems Recent Progress Patient-Stated? Author Quit using tobacco (cigarettes, smokeless, etc) Tobacco Use Corey Cornell, KelechiD documented as of this encounter Visit Diagnoses Diagnosis Rheumatoid arthritis involving multiple sites with positive rheumatoid factor (CMS/HCC) documented in this encounter Care Teams Sequins Slinger Relationship Specialty Start Date End Date Mackenzie Estrada MD [address] [place] [address] PCP - General Family Medicine 07/10/20 Casper Magaña, JENNIFER [address] [place] [address] Registered Nurse Family Medicine 01/18/25 01/18/25 Ruth Ann Price 02/19/25 02/19/25 Ruth Ann Price 02/19/25 02/28/25 Hemalatha Pretty Party Plan Selling DistributorMedical Lab Specialist 01/02/25 documented as of this encounter
--- OUTSIDE RECORDS SUMMARY | 2025-03-28 10:32 | XMS_ITS | Encounter Summary ---
Author Organization [employer] Address [address] [facility] [address] [place] [address] Care Team Providers Care Kaitara Taraka Name Role Phone Mackenzie Estrada MD Primary Care Provider [phone] Ruth Ann Price Unavailable Unavailable Ruth Ann Price Unavailable Reason for Visit * Reason Comments Med Refill Encounter Details Date Type Department Care Team ([facility] Contact Info) Description 01/24/2025 Refill [facility] [address] [place] [address] Kat Yo MD [address] [place] [address] Rheumatoid arthritis involving right hand with positive [...] Description 05/14/2025 9:45 AM EDT Office Visit [facility] [address] [place] [address] documented as of this encounter Goals Goal [...] documented as of this encounter Care Teams Kaitara Taraka Relationship Specialty Start Date End Date Mackenzie Estrada MD [address] [place] [address] PCP - General Family Medicine 07/10/20 Ruth Ann Price 02/19/25 02/19/25 Ruth Ann Price 02/19/25 02/28/25 Hemalatha Pretty Medical PsychotherapistCulturist 01/02/25 documented as of this encounter
--- OUTSIDE RECORDS SUMMARY | 2025-03-28 10:32 | XMS_ITS | Encounter Summary ---
Author Organization [employer] Address [address] [place] [address] Care Team Providers Care Template Checker Name Role Phone Mackenzie Estrada MD Primary Care Provider [phone] Casper Magaña RN Unavailable [phone] Ruth Ann Price Unavailable Unavailable Ruth Ann Price Unavailable Encounter Details Date Type Department Care Team (Late st Contact Info) Description 04/10/2024 Orders Only [facility] [address] [place] [address] Mackenzie Estrada MD [address] [place], [place] [phone] Social History Tobacco Use Types Packs/Day Years [...] Description 05/14/2025 9:45 AM EDT Office Visit [facility] [address] [place] [address] documented as of this encounter Goals Goal Patient Goal Type Associated Problems Recent Progress Patient-Stated? Author Quit using tobacco (cigarettes, smokeless, etc) Tobacco Use Corey Cornell, Bailey documented as of this encounter Visit Diagnoses Not on filedocumented in this encounter Care Teams Template Checker Relationship Specialty Start Date End Date Mackenzie Estrada MD [address] [place] [address] PCP - General Family Medicine 07/10/20 Casper Magaña, JENNIFER [address] [place] [address] Registered Nurse Family Medicine 01/18/25 01/18/25 Ruth Ann Price 02/19/25 02/19/25 Ruth Ann Price 02/19/25 02/28/25 Hemalatha Pretty Conference Services ManagerExpediter Service Order 01/02/25 documented as of this encounter
--- OUTSIDE RECORDS SUMMARY | 2025-03-28 10:32 | XMS_ITS | Encounter Summary ---
Author Organization [employer] Address [address] [facility] [address] [place] [address] Care Team Providers Care Wind Up Operator Name Role Phone Mackenzie Estrada MD Primary Care Provider [phone] Casper Magaña RN Unavailable [phone] Ruth Ann Price Unavailable Unavailable Ruth Ann Price Unavailable Reason for Visit * Reason Comments Med Refill Encounter Details Date Type Department Care Team ([facility] st Contact Info) Description 06/03/2023 Refill [facility] [address] [place], [place] [phone] Mackenzie Estrada MD [address] [place], [place] [phone] Pain in both hands Social History Tobacco [...] [facility] [address] [place] [address] documented as of this encounter Goals Goal Patient Goal Type Associated Problems Recent Progress Patient-Stated? Author Quit using tobacco (cigarettes, smokeless, etc) Tobacco Use Corey Cornell, Bailey documented as of this encounter Visit Diagnoses Diagnosis Pain in both hands documented in this encounter Care Teams Wind Up Operator Relationship Specialty Start Date End Date Mackenzie Estrada MD [address] [place] [address] PCP - General Family Medicine 07/10/20 Casper Magaña, JENNIFER [address] [place] [address] Registered Nurse Family Medicine 01/18/25 01/18/25 uRth Ann Price 02/19/25 02/19/25 Ruth Ann Price 02/19/25 02/28/25 Hemalatha Pretty Shorts SifterMedical Radiation Therapist 01/02/25 documented as of this encounter
--- OUTSIDE RECORDS SUMMARY | 2025-03-28 10:32 | XMS_ITS | Clinical Summary ---
Author Organization [employer] Address [address] [place] [address] Care Team Providers Care Cadmium Liquor Maker Name Role Phone Mackenzie Estrada MD Primary Care Provider [phone] Allergies Active Allergy Reactions Criticality Noted Date Comments Confluence (Diagnostic) 05/23/2020 Confluence Oil Anaphylaxis High 07/19/2022 Morphine 06/02/2015 Other [...] 05/26/20 22 Active Sharps Container (GUARDIAN Sharps Building Maintenance Repairer) misc 06/15/20 22 Active Vitamin D High Potency 25 MCG (1000 UT) capsule Take 25 mcg by mouth in the morning. 12/11/19 23 Active beta carotene (vitamin A) 3 MG (34933 UT) capsule Take by mouth in the [...] MOUTH EVERY WEEK 02/24/20 24 Active Umeclidinium Brock (Incruse Ellipta) 62.5 MCG/ACT aerosol powderIndicati ons:Subacute [...] MG tabletIndicati ons:NSTEMI (non-ST elevated myocardial infarction) ([facility]) Take 1 tablet (75 mg) by mouth [...] collapse of femoral head present on x-ray ([facility]) TAKE 1 TABLET BY MOUTH EVERY 6 [...] antibiotics. Patient should continue RA treatment with senior technical program manager, avoid trauma to elbows. Cervical paraspinal muscle spasm 01/24/2025 Long-term current use of opiate analgesic 2024 Overview (12/12/2024): Medication: Percocet 7.5/325mg Q6H PRN Indication: Rheumatoid arthritis Last PSYCHOLOGIST EXPERIMENTAL Agreement: 06/12/24 Tier: II (Q3 months visits), [...] 8:21 AM EST): Has Narcan at home PSYCHOLOGIST EXPERIMENTAL agreement UTD Seeing group pain visits for PSYCHOLOGIST EXPERIMENTAL Assessment & Plan (09/11/2024 5:03 PM EST): [...] 01/26/2024 Overview (08/14/2024): - Following with [facility] Rheum: Dr. Castro Assessment & Plan (01/26/2024 [...] to go back to her previous dose, PSYCHOLOGIST EXPERIMENTAL nurse informed about my plan, I instructed [...] pt f w Dr. 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 Corley Assessment & Plan (03/12/2025 [...] EDT): Primarily managed by Rheum at [facility] Continue to take Oulimiant 2mg, Methotrexate 20mg [...] not as effective -I spoke today with [facility] staff today ( Shahla) and confirmed they do have remdesivir which will be the best options for tx for this pt , ER at [facility] are expecting pt for evaluation. Also [...] week as per Rheumatology. Rx sent to [facility] and they will continue refill for [...] Type Department Care Team Description 03/18/2025 Refill [facility] [address] [place] [address] Livia Amos MD 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 ([facility]) 03/14/2025 Refill [facility] [address] [place] [address] Livia Amos MD 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 ([facility]) 03/13/2025 Refill [facility] [address] [place] [phone] Mackenzie Estrada MD 03/12/2025 9:45 AM EDT Office Visit [facility] [address] [place] [phone] Sisi Kennedy, FARHEEN Rheumatoid arthritis involving multiple sites with positive rheumatoid factor ([facility]) (Primary Dx); Long-term current use of opiate analgesic; Seborrheic dermatitis 03/12/2025 Travel 03/06/2025 2:00 PM EDT Office Visit [facility] [address] [place] [phone] Livia Hooper MD Inflammatory arthritis (Primary Dx) 03/06/[address] [address] Mackenzie Estrada MD pt1 (PT-1 Request [id number] Pending . For pending submissions, please check the portal periodically for updates. ) 03/06/2025 Telephone [facility] [address] [place] [address] Livia Hooper MD 03/06/2025 Travel 03/05/2025 Telephone [facility] [address] [place] [phone] Mackenzie Estrada MD Nurse Triage 02/28/2025 Patient Outreach [facility] [address] [place] [address] Mackenzie Estrada MD Care Coordination (CP/ Communication to pt assigned CP Coordinator) 02/21/2025 Refill [facility] [address] [place] [phone] Kaylene Samano RN 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 ([facility]) 02/21/[address] [address] Mackenzie Estrada MD Med Refill 02/19/2025 Patient Outreach [facility] [address] [place] [address] Mackenzie Estrada MD Care Coordination ([facility] ED /F/U) 02/19/2025 Patient Outreach [facility] [address] [place] [address] Mackenzie Estrada MD Care Coordination ([facility] Quality Control Assistant / Chart Review) 02/19/2025 Patient Outreach [facility] [address] [place] [phone] Mackenzie Estrada MD 02/19/2025 Patient Outreach [facility] [address] [place] [address] Mackenzie Estrada MD 02/18/2025 Refill [facility] [address] [place] [phone] Mackenzie Estrada MD 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 ([facility]) 02/18/2025 Orders Only GENERIC EXTERNAL DATA DEPARTMENT Provider, Generic External Data 02/14/2025 Refill [facility] [address] [place] [phone] Mackenzie Estrada MD 02/05/2025 Telephone [facility] [address] [place] [address] Mackenzie Estrada MD ER Follow-up 02/04/2025 Orders Only GENERIC EXTERNAL DATA DEPARTMENT Provider, Generic External Data 02/01/2025 Refill [facility] [address] [place] [phone] Ebony Daigle MD 01/24/2025 12:15 PM EDT Office Visit [facility] [address] [place] [phone] Ebony Daigle MD Soft tissue lesion of elbow region (Primary Dx); Cervical paraspinal muscle spasm; Screening mammogram, encounter for; Encounter for immunization 01/24/2025 Refill [facility] [address] [place] [address] Ebony Daigle MD Rheumatoid arthritis involving multiple sites with positive rheumatoid factor ([facility]) 01/24/2025 Telephone [facility] [address] [place] [phone] Mackenzie Estrada MD Med Refill 01/24/2025 Refill [facility] [address] [place] [phone] Kat Yo MD 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 ([facility]); Inflammatory arthritis 01/24/[address] [address] Kaylene Samano RN 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 ([facility]) 01/24/2025 Travel 01/18/2025 Patient Outreach [address] [address] Mackenzie Estrada MD Care Coordination (C3- ER F/U Call) 01/18/2025 Patient Outreach [address] [address] Mackenzie Estrada MD 01/17/2025 Orders Only GENERIC EXTERNAL DATA DEPARTMENT Provider, Generic External Data 01/02/[address] [address] Mackenzie Estrada MD Care Coordination (ICP care plan) 12/28/2024 9:45 AM EDT Office Visit [address] [address] Mackenzie Estrada MD Rheumatoid arthritis involving multiple sites with positive rheumatoid factor ([facility]) (Primary Dx); Recurrent major depressive disorder, in remission ([facility]); Personal history of Hodgkin lymphoma; NSTEMI (non-ST elevated myocardial infarction) ([facility]) 12/28/2024 Travel from Last 3 Months Immunizations [facility] [address] [place] [phone] Health Maintenance Due Date Last Done Comments [...] - 03/12/2025 10:28 AM EDT .UTOX cup Lot#[id number] Exp. 05/07/26 Internal Pass Control us Sisikatherin Kennedy SUGAR HOUSE SUPERVISOR POINT OF CARE TEST ENTER/EDIT ORDERABLES Final Result * (ABNORMAL) Urinalysis, Complete, with Reflex to Culture (02/18/2025 10:44 AM EDT) Color Urine Yellow [facility] Appearance Urine Clear [facility] PH 6.0 5.0 - 9.0 [facility] Glucose Urine UA Negative Negative mg/dL [facility] Urine Blood Negative Negative [facility] Specific [place] - Urine 1.020 1.005 - 1.025 [facility] Urine Protein Negative Neg-Trace mg/dL [facility] Urine Ketones Negative Negative mg/dL [facility] Nitrite Urine Negative Negative [facility] Leukocyte Esterase Urine Small (1+)(A) Negative [facility] RBC Urine 0-2 0 - 2 /HPF [facility] Urine WBC 6-10(A) 0 - 5 /HPF [facility] Urine Squamous Epithelial Cell 11-20 0 - 2 /HPF [facility] Urine Bacteria Trace None Seen [facility] Hyaline Casts, Urine 0-2 0 - 2 /LPF [facility] 02/18/2025 10:4 4 AM EDT 02/18/2025 10:49 AM EDT Narrative [facility] - 02/18/2025 10:57 AM EDT [id number], Clean Catch us Generic External Data Provider LAB URINE ORDERAB LES Final Result [facility] [address] [place] [phone] * VASC US Lower Extremity Venous Duplex Bilateral (02/18/2025 9:50 AM EDT) 02/18/2025 9:50 AM EDT Narrative [facility] - 02/18/2025 10:27 AM EDT [address] [address] Ultrasound Report Signed Patient: Ginette Arceo MR #: [id number] : 1975 Acct:[id number] Age/Sex: 49 / F ADM Date: 02/18/25 Loc: .ED Attending Dr: Ordering Physician: Jana Mcdaniel Date of Service: 02/18/25 Procedure(s): US venous duplex LE BI Accession Number(s): [id number] cc: Mackenzie Estrada; Jana Mcdaniel EXAMINATION: US [...] 02/18/25 1024 DD/ 0950 TD/TT: 02/18/25 1010 Leadership Development Manager: Procedure Note Donotuseinterpreter, Image - 02/18/[address] [address] Ultrasound Report Signed Patient: Ginette ArceoMR #: [id number] : 1975Acct:[id number] Age/Sex: 49 / FADM Date: 02/18/25 Loc: HO.ED Attending Dr: Ordering Physician: Jana Mcdaniel Date of Service: 02/18/25 Procedure(s): US venous duplex LE BI Accession Number(s): [id number] cc: Mackenzie Estrada; Jana Mcdaniel EXAMINATION: US [...] 02/18/25 1024 DD/ 0950 TD/TT: 02/18/25 1010 Leadership Development Manager: [facility] External Provider CV VASC ULAR PROCEDURES Final Result [facility] [address] [place] [phone] * High Sensitivity Troponin I (02/18/2025 8:49 AM EDT) Pathologist [facility] TROPONIN I HIGH SENSITIVITY <2.7 <3.5 - 17.0 ng/L [facility] Comment:The Shea high sens itivity Troponin-I results should beused in conjunction with other diagnostic information suchas ECG, clinical observations and information, and patientsymptoms to aid in the diagnosis of UT. 02/18/2025 8:49 AM EDT 02/18/2025 8:54 AM EDT us Generic External Data Provider LAB BLOOD ORDERAB LES Final Result Performing Organization Address City/[facility]/ZIP Co de Phone Number [facility] [address] [place] [phone] * SARS-CoV-2 RNA, Influenza A/B, and RSV RNA, Ql NAAT (02/18/2025 8:49 AM EDT) Pathologist [facility] Influenza A PCR NEGATIVE Negative [facility] Influenza B PCR NEGATIVE Negative [facility] Resp Syncy Virus RNA Qual PCR NEGATIVE Negative [facility] SARS COV2 PCR NEGATIVE Negative [facility] Comment:All test results mus t be [...] use by authorized laboratories.Testing performed on the Ezetap GeneXpert utilizingreal-time RT-PCR.All SARS CoV2 and positive influenza A/B results arereported to [facility]. 02/18/2025 8:49 AM EDT 02/18/2025 8:54 AM EDT us Generic External Data Provider LAB MICROBIOLOGY - GENERAL ORDERABLES Final Result [facility] [address] [place] [phone] * (ABNORMAL) CBC auto differential (02/18/2025 8:49 AM EDT) Only the most recent of3 resultswithin the time period is included. White Blood Count 3.6(L) 4.8 - 10.8 X10*3/uL [facility] Red Blood Count 4.16(L) 4.20 - 5.50 X10*6/uL [facility] Hemoglobin 12.5 12.0 - 16.0 g/dl [facility] Hematocrit 37.9 37.0 - 47.0 % [facility] Mean Corpuscular Volume 91.1 80.0 - 98.0 fL [facility] Mean Corpuscular Hemoglobin 30.0 27.0 - 33.0 pg [facility] Mean Corpuscular HGB Conc 33.0 31.0 - 35.0 g/dl [facility] Red Cell Distribution Width 14.1 11.0 - 16.0 % [facility] Platelet Count 308 160 - 400 X10*3/uL [facility] Mean Platelet Volume 9.6 9.4 - 12.3 fL [facility] Neutrophils Percent Auto 44.3(L) 45 - 73 % [facility] Imm Gran Pct Auto 0.3 0.0 - 0.4 % [facility] Lymphocytes Percent Auto 47.5(H) 20 - 40 % [facility] Monocytes Percent Auto 5.6 2 - 11 % [facility] Eosinophils Percent Auto 1.7 0 - 4 % [facility] Basophils Percent Auto 0.6 0 - 2 % [facility] NRBC Pct Auto 0.0 0.0 - 0.2 /100WBC [facility] Neutrophils Absolute Auto 1.6(L) 2.0 - 8.3 x10*3/uL [facility] Imm Gran Abs Auto 0.01 0.00 - 0.03 X10*3/uL [facility] Lymphocytes Absolute Auto 1.7 1.2 - 4.9 X10*3/uL [facility] Monocytes Absolute Auto 0.2 0.1 - 1.2 X10*3/uL [facility] Eosinophils Absolute Auto 0.1 0.0 - 0.4 X10*3/uL [facility] Basophils Absolute Auto 0.0 0.0 - 0.2 X10*3/uL [facility] NRBC Abs Auto 0.000 0.0 - 0.012 X10*3/uL [facility] 02/18/2025 8:49 AM EDT 02/18/2025 8:54 AM EDT Generic External Data Provider LAB BLOOD ORDERAB LES Final Result Performing Organization Address [facility] de Phone Number [facility] [address] [place] [phone] * (ABNORMAL) Sed Rate by Modified Maldonadoren (02/18/2025 8:49 AM EDT) Only the most recent of3 resultswithin the time period is included. Erythrocyte Sedimentation Rate 81(H) 0 - 20 MM/HR [facility] Comment:Patients with polycy themia and many hemoglobin abnormalitiesmay have depressed sed rates whereas patients with anemiamay have elevated sed rates. 02/18/2025 8:49 AM EDT 02/18/2025 8:54 AM EDT Generic External Data Provider LAB BLOOD ORDERAB LES Final Result Performing Organization Address [facility] Co de Phone Number [facility] [address] [place] [phone] [phone] * C-reactive Protein (02/18/2025 8:49 AM EDT) Only the most recent of2 resultswithin the time period is included. C Reactive Protein 0.44 < or = 0.50 mg/dL [facility] 02/18/2025 8:49 AM EDT 02/18/2025 8:54 AM EDT us Generic External Data Provider LAB BLOOD ORDERAB LES Final Result Performing Organization Address [facility] de Phone Number [facility] [address] [place] [phone] * B Type Natriuretic Peptide (BNP) (02/18/2025 8:49 AM EDT) [facility] B Type Natriuretic Peptide 48 <100 pg/mL [facility] 02/18/2025 8:49 AM EDT 02/18/2025 8:54 AM EDT Generic External Data Provider LAB BLOOD ORDERAB LES Final Result Performing Organization Address [facility] Number [facility] [address] [place] [phone] * Magnesium (02/18/2025 8:49 AM EDT) Only the most recent of2 resultswithin the time period is included. [facility] Magnesium 2.2 1.6 - 2.6 mg/dL [facility] 02/18/2025 8:49 AM EDT 02/18/2025 8:54 AM EDT Generic External Data Provider LAB BLOOD ORDERAB LES Final Result Performing Organization Address [facility] de Phone Number [facility] [address] [place] [phone] * (ABNORMAL) Hepatic Function Panel (02/18/2025 8:49 AM EDT) [facility] Bilirubin, Total 0.2 0.0 - 1.0 mg/dL [facility] Bilirubin, Direct <0.2 0.0 - 0.5 mg/dL [facility] Aspartate Amino Transferase 29 5 - 31 U/L [facility] Comment:Slight Hemolysis.Int erpret result with caution. Alanine Aminotransferase 13 0 - 31 U/L [facility] Total Protein 9.6(H) 6.5 - 8.0 g/dL [facility] Albumin Level 4.2 3.5 - 5.0 g/dL [facility] Alkaline Phosphatase 91 39 - 117 U/L [facility] 02/18/2025 8:49 AM EDT 02/18/2025 8:54 AM EDT us Generic External Data Provider LAB BLOOD ORDERAB LES Final Result [facility] [address] [place] [phone] * Basic Metabolic Panel (02/18/2025 8:49 AM EDT) Sodium 140 135 - 145 mmol/L [facility] Potassium 4.6 3.3 - 5.1 mmol/L [facility] Comment:Slight Hemolysis.Int erpret result with caution. Chloride 106 96 - 108 mmol/L [facility] Carbon Dioxide 25 22 - 29 mmol/L [facility] Anion Gap 14 12 - 20 [facility] Urea Nitrogen (BUN) 12 9 - 16 mg/dL [facility] Creatinine, Serum 0.62 0.5 - 1.4 mg/dL [facility] Creatinine Clr Calc Pharmacy 120.9 [facility] Comment:Provided height and weight: 167.64 cm,83.6 kg.eGFR (calculated from the MDRD study equation) and eCrCl(calculated from the Cockcroft-Gault equation) are based ondifferent parameters and may not yield comparable results.If eCrCl result is absurd, please check patient'sheight/weight. Estimated Glomerular Filt Rate >60 [facility] Comment:Chronic Kidney Disea se: Estimated GFR < 60 mL/min/1.45p8Pttijj Kidney Disease: Estimated GFR < 15 mL/min/1.73m2 Glucose 101 60 - 115 mg/dL [facility] Calcium 9.6 8.4 - 10.2 mg/dL [facility] 02/18/2025 8:49 AM EDT 02/18/2025 8:54 AM EDT us Generic External Data Provider LAB BLOOD ORDERAB LES Final Result Performing Organization Address City/State/[facility] Co de Phone Number [facility] [address] [place] [phone] * XR Knee 3 Views Left (02/18/2025 8:14 AM EDT) Anatomical Region Laterality Modality Lower Extremities, Knee Left Radiogra phic Imaging 02/18/2025 8:14 AM EDT Narrative 02/18/2025 9:26 AM EDT [address] [address] XRay Report Signed Patient: Ginette Arceo MR #: [id number] : 1975 Acct:[id number] Age/Sex: 49 / F ADM Date: 02/18/25 Loc: .ED Attending Dr: Ordering Physician: Jana Mcdaniel Date of Service: 02/18/25 Procedure(s): XR knee LT 3V Accession Number(s): [id number] cc: Mackenzie Estrada; Jana Mcdaniel EXAMINATION: XR [...] in OV> 02/18/25922 DD/ 3 TD/TT: 02/18/25912 Leadership Development Manager: [facility] Procedure Note Donotuseinterpreter, Image - 02/18/[address] [address] XRay Report Signed Patient: Ginette ArceoMR #: [id number] : 1975Acct:[id number] Age/Sex: 49 / FADM Date: 02/18/25 Loc: HO.ED Attending Dr: Ordering Physician: Jana Mcdaniel Date of Service: 02/18/25 Procedure(s): XR knee LT 3V Accession Number(s): [id number] cc: Mackenzie Estrada; Jana Mcdaniel EXAMINATION: XR [...] 02/18/25 09 DD/ 0814 TD/TT: 02/18/25 0913 Leadership Development Manager: MAGGIE [facility] External Provider IMG XR PROCEDURES Final Result * XR Knee 3 Views Right (02/18/2025 8:11 AM EDT) Anatomical Region Laterality Modality Lower Extremities, Knee Right [facility] 02/18/2025 8:11 AM EDT Narrative 02/18/2025 9:25 AM EDT [address] [address] XRay Report Signed Patient: Ginette Arceo MR #: [id number] : 1975 Acct:[id number] Age/Sex: 49 / F ADM Date: 02/18/25 Loc: HO.ED Attending Dr: Ordering Physician: Jana Mcdaniel Date of Service: 02/18/25 Procedure(s): XR knee RT 3V Accession Number(s): [id number] cc: Mackenzie Estrada; Jana Mcdaniel EXAMINATION: XR [...] OV> 02/18/2522 DD/ 0811 TD/TT: 02/18/25 09 Leadership Development Manager: MAGGIE Procedure Note Donotuseinterpreter, Image - 02/18/2025 [place] [address] XRay Report Signed Patient: Ginette ArceoMR #: [id number] : 1975Acct:[id number] Age/Sex: 49 / FADM Date: 02/18/25 Loc: .ED Attending Dr: Ordering Physician: Jana Mcdaniel Date of Service: 02/18/25 Procedure(s): XR knee RT 3V Accession Number(s): [id number] cc: Mackenzie Estrada; Jana Mcdaniel EXAMINATION: XR [...] in OV> 02/18/2522 DD/ 0811 TD/TT: 02/18/25912 Leadership Development Manager: MAGGIE us [facility] External Provider IMG XR PROCEDURES Final Result * XR Hand 3+ Views Right (02/18/2025 8:08 AM EDT) Anatomical Region Laterality Modality Upper Extremities, Hand Right Radiogra phic Imaging 02/18/2025 8:08 AM EDT Narrative 02/18/2025 9:30 AM EDT [address] [address] XRay Report Signed Patient: Ginette Arceo MR #: [id number] : 1975 Acct:[id number] Age/Sex: 49 / F ADM Date: 02/18/25 Loc: HO.ED Attending Dr: Ordering Physician: Jana Mcdaniel Date of Service: 02/18/25 Procedure(s): XR hand RT min 3V Accession Number(s): [id number] cc: Mackenzie Estrada; Jana Mcdaniel EXAMINATION: XR [...] in OV> 02/18/25926 DD/ 7 TD/TT: 02/18/25912 Leadership Development Manager: MAGGIE Procedure Note Donotuseinterpreter, Image - 02/18/[address] [address] XRay Report Signed Patient: Ginette ArceoMR #: [id number] : 1975Acct:[id number] Age/Sex: 49 / FADM Date: 02/18/25 Loc: HO.ED Attending Dr: Ordering Physician: Jana Mcdaniel Date of Service: 02/18/25 Procedure(s): XR hand RT min 3V Accession Number(s): [id number] cc: Mackenzie Estrada; Jana Mcdaniel EXAMINATION: XR [...] OV> 02/18/25926 DD/ 0808 TD/TT: 02/18/25 0913 Leadership Development Manager: MAGGIE [facility] External Provider IMG XR PROCEDURES Final Result * Culture, Urine, Routine (02/18/2025 12:00 AM EDT) Urine Urine specimen obtained by clean catch procedure / Unknown 02/18/2025 02/18/2025 Comment:[facility] - 02/19/2025 9:03 AM EDT Strep agalactiae (Grp B) Quant 50,000 to 100,000 cfu/mL Susc N/A Susceptibility not routinely performed on this isolate. Specimen Source: Urine clean catch us Generic External Data Provider LAB MICROBIOLOGY - GENERAL ORDERABLES Final Result [facility] [address] [place] [phone] * XR Foot 3+ Views Left (02/04/2025 9:33 AM EDT) Only the most recent of2 resultswithin the time period is included. Anatomical Region Laterality Modality Lower Extremities, Foot Left [facility] 02/04/2025 9:33 AM EDT Narrative 02/04/2025 9:35 AM EDT [address] [address] XRay Report Signed Patient: Ginette Arceo MR #: [id number] : 1975 Acct:[id number] Age/Sex: 49 / F ADM Date: 02/04/25 Loc: HO.ED Attending Dr: Ordering Physician: Raymon Fregoso MD Date of Service: 02/04/25 Procedure(s): XR foot LT min 3V Accession Number(s): [id number] cc: Raymon Fregoso MD; Mackenzie Estrada CLINICAL HISTORY: lt foot pain Exam: Left foot three views Comparison: CR/WI/SR - XR FOOT LT MIN 3V - [...] in OV> 02/04/25934 DD/ 2 TD/TT: 02/04/25932 Leadership Development Manager: Procedure Note Donotwilmarinterpreter, Image - 02/04/2025 [place] [address] XRay Report Signed Patient: Ginette ArceoMR #: [id number] : 1975Acct:[id number] Age/Sex: 49 / FADM Date: 02/04/25 Loc: HO.ED Attending Dr: Ordering Physician: Raymon Fregoso MD Date of Service: 02/04/25 Procedure(s): XR foot LT min 3V Accession Number(s): [id number] cc: Raymon Fregoso MD; Mackenzie Estrada CLINICAL HISTORY: lt foot pain Exam: Left foot three views Comparison: CR/WI/SR - XR FOOT LT MIN 3V - [...] in OV> 02/04/25934 DD/ 2 TD/TT: 02/04/25932 Leadership Development Manager: [facility] External Provider IMG XR PROCEDURES Final Result * XR Ankle 3+ Views Left (02/04/2025 9:26 AM EDT) Only the most recent of2 resultswithin the time period is included. Anatomical Region Laterality Modality Lower Extremities, Ankle Left Radiogr aphic Imaging 02/04/2025 9:26 AM EDT Narrative 02/04/2025 9:28 AM EDT [address] [address] XRay Report Signed Patient: Ginette Arceo MR #: [id number] : 1975 Acct:[id number] Age/Sex: 49 / F ADM Date: 02/04/25 Loc: HO.ED Attending Dr: Ordering Physician: Raymon Fregoso MD Date of Service: 02/04/25 Procedure(s): XR ankle LT min 3V Accession Number(s): [id number] cc: Raymon Fregoso MD; Mackenzie Estrada CLINICAL HISTORY: lt ankle pain 3 view left ankle Comparison: CR/WI/SR - XR ANKLE LT MIN 3V - [...] in OV> 02/04/25926 DD/ 5 TD/TT: 02/04/25925 Leadership Development Manager: Procedure Note Donotuseinterpreter, Image - 02/04/[address] [address] XRay Report Signed Patient: Ginette ArceoMR #: [id number] : 1975Acct:[id number] Age/Sex: 49 / FADM Date: 02/04/25 Loc: HO.ED Attending Dr: Ordering Physician: Raymon Fregoso MD Date of Service: 02/04/25 Procedure(s): XR ankle LT min 3V Accession Number(s): [id number] cc: Raymon Fregoso MD; Mackenzie Estrada CLINICAL HISTORY: lt ankle pain 3 view left ankle Comparison: CR/WI/SR - XR ANKLE LT MIN 3V - [...] in OV> 02/04/25926 DD/ 5 TD/TT: 02/04/25925 Leadership Development Manager: [facility] External Provider IMG XR PROCEDURES Final Result * (ABNORMAL) Comprehensive Metabolic Panel (02/04/2025 8:38 AM EDT) Only the most recent of2 resultswithin the time period is included. Sodium 138 135 - 145 mmol/L [facility] Potassium 3.8 3.3 - 5.1 mmol/L [facility] Chloride 106 96 - 108 mmol/L [facility] Carbon Dioxide 25 22 - 29 mmol/L [facility] Anion Gap 11(L) 12 - 20 [facility] Urea Nitrogen (BUN) 10 9 - 16 mg/dL [facility] Creatinine, Serum 0.56 0.5 - 1.4 mg/dL [facility] Creatinine Clr Calc Pharmacy 134.1 [facility] Comment:Provided height and weight: 167.64 cm,84 kg.eGFR (calculated from the MDRD study equation) and eCrCl(calculated from the Cockcroft-Gault equation) are based ondifferent parameters and may not yield comparable results.If eCrCl result is absurd, please check patient'sheight/weight. Estimated Glomerular Filt Rate >60 [facility] Comment:Chronic Kidney Disea se: Estimated GFR < 60 mL/min/1.65h3Bormkh Kidney Disease: Estimated GFR < 15 mL/min/1.73m2 Glucose 112 60 - 115 mg/dL [facility] Calcium 9.2 8.4 - 10.2 mg/dL [facility] Bilirubin, Total 0.3 0.0 - 1.0 mg/dL [facility] Aspartate Amino Transferase 16 5 - 31 U/L [facility] Alanine Aminotransferase 9 0 - 31 U/L [facility] Total Protein 8.3(H) 6.5 - 8.0 g/dL [facility] Albumin Level 3.9 3.5 - 5.0 g/dL [facility] Alkaline Phosphatase 80 39 - 117 U/L [facility] 02/04/2025 8:38 AM EDT 02/04/2025 8:40 AM EDT us Generic External Data Provider LAB BLOOD ORDERAB LES Final Result Performing Organization Address City/State/[facility] Co de Phone Number [facility] [address] [place] [phone] * US VENOUS DUPLEX LE LT (01/17/2025 12:19 PM EDT) Anatomical Region Laterality Modality Abdomen Ultrasound 01/17/2025 12:1 9 PM EDT Narrative 01/17/2025 1:51 PM EDT [address] [address] Ultrasound Report Signed Patient: Ginette Arceo MR #: [id number] : 1975 Acct:[id number] Age/Sex: 49 / F ADM Date: 01/17/25 Loc: .ED Attending Dr: Ordering Physician: Jana Mcdaniel Date of Service: 01/17/25 Procedure(s): US venous duplex LE LT Accession Number(s): [id number] cc: Mackenzie Estrada; Jana Mcdaniel EXAMINATION: US [...] 01/17/25 1348 DD/ 1219 TD/TT: 01/17/25 1331 Leadership Development Manager: Procedure Note Donotuseinterpreter, Image - 01/17/2025 [place] [address] Ultrasound Report Signed Patient: Ginette ArceoMR #: [id number] : 1975Acct:[id number] Age/Sex: 49 / FADM Date: 01/17/25 Loc: .ED Attending Dr: Ordering Physician: Jana Mcdaniel Date of Service: 01/17/25 Procedure(s): US venous duplex LE LT Accession Number(s): [id number] cc: Mackenzie Estrada; Jana Mcdaniel EXAMINATION: US [...] 01/17/25 1348 DD/ 1219 TD/TT: 01/17/25 1331 Leadership Development Manager: us [facility] External Provider IMG US PROCEDURES Final Result * XR Elbow 3+ Views Left (01/17/2025 12:08 PM EDT) Anatomical Region Laterality Modality Upper Extremities, Elbow Left Radiogr aphic Imaging 01/17/2025 12:0 8 PM EDT Narrative 01/17/2025 1:19 PM EDT [place] [address] XRay Report Signed Patient: Ginette Arceo MR #: [id number] : 1975 Acct:[id number] Age/Sex: 49 / F ADM Date: 01/17/25 Loc: .ED Attending Dr: Ordering Physician: Jana Mcdaniel Date of Service: 01/17/25 Procedure(s): XR elbow LT min 3V Accession Number(s): [id number] cc: Mackenzie Estrada; Jana Mcdaniel EXAMINATION: XR [...] 01/17/25 1316 DD/ 1208 TD/TT: 01/17/25 1313 Leadership Development Manager: Procedure Note Donotwilmarinterpreter, Image - 01/17/[address] [address] XRay Report Signed Patient: Ginette ArceoMR #: [id number] : 1975Acct:[id number] Age/Sex: 49 / FADM Date: 01/17/25 Loc: HO.ED Attending Dr: Ordering Physician: Jana Mcdaniel Date of Service: 01/17/25 Procedure(s): XR elbow LT min 3V Accession Number(s): [id number] cc: Mackenzie Estrada; Jana Mcdaniel EXAMINATION: XR [...] 01/17/25 1316 DD/ 1208 TD/TT: 01/17/25 1313 Leadership Development Manager: [facility] External Provider IMG XR PROCEDURES Final Result * Hepatitis C Ab (04/11/2024 10:26 AM EDT) Hepatitis C Antibody Nonreactive Nonreactive [facility] Comment:Antibodies to HCV no t detected; does not exclude early acuteHCV infection. Blood Venous blood specimen / Unknown 04/11/2024 10:26 AM EDT 04/11/2024 11:19 AM EDT us Mackenzie Estrada MD LAB BLOOD ORDERABLES Final Res ult Performing Organization Address [facility] Co de Phone Number [facility] [address] [place] [phone] * HIV-1/2 Antigen and Antibodies, Fourth Generation, with Reflexes (04/11/2024 10:26 AM EDT) HIV AB/AG Nonreactive Nonreactive [facility] Comment:HIV-1 p24 Ag and/or HIV-1/HIV-2 Ab not detected.A test result that is nonreactive does not exclude thepossibility of exposure to or infection with HIV-1 and/orHIV-2. Nonreactive results in this assay for individualswith prior exposure to HIV-1 and/or HIV-2 may be due toantigen and antibody levels that are below the limit ofdetection of this assay.The [employer] HIV Ag/Ab Combo assay result andsupplemental assay results should be interpreted inconjunction with the patient's clinical presentation,history and other laboratory results. If the results areinconsistent with clinical evidence, additional testing issuggested to confirm the result. Blood Venous blood specimen / Unknown 04/11/2024 10:26 AM EDT 04/11/2024 11:19 AM EDT us Mackenzie Estrada MD LAB BLOOD ORDERABLES Final Res ult Performing Organization Address [facility] Co de Phone Number [facility] [address] [place] [phone] * HPV mRNA E6/E7 w/Reflex to HPV Genotypes 16, 18/45 (09/29/2023 12:26 PM EST) HPV nRNA E6/E7 Not Detected Not Detected [facility] Comment:Methodology: Transcr iption-Mediated AmplificationThis assay detects E6/E7 viral messenger RNA (mRNA) from 14high-risk HPV types (16,18,31,33,35,39,45,51,52,56,58,59,66,68).Cervical sources are required for HPV testing.If a vaginal source from a patient who has had atotal hysterectomy with removal of cervix wassubmitted, please contact the testing laboratoryfor alternative testing options.For additional information, please refer tohttp://education.[employer]/faq/VDQ099d5(This link if provided for information/educational purposes only.)THIS TEST WAS PERFORMED AT:[facility] [place] [phone] GALVAN MD HPV mRNA E6/E7 [facility] HPV 16 RNA [facility] HPV 18/45 RNA [facility] 09/29/2023 12:2 6 PM EST 09/30/2023 11:30 AM EST Mackenzie Estrada MD LAB CYTOLOGY ORDERABLES Final Result Performing Organization Address City/State/[facility] Co de Phone Number [facility] [address] [place] [phone] * Pap Smear (09/29/2023 12:26 PM EST) 09/29/2023 12:2 6 PM EST 09/30/2023 11:30 AM EST Narrative [facility] - 10/12/2023 4:18 PM EDT ----- ------- Name: Rufino Arceoeline Age/Sex: 48/F : 1975 Unit#: [id number] Attend Dr: Mackenzie Estrada Re09/29/23 Status: DEP REF Location: [facility] Disch: ----- ------- SPEC : [id number] RECD: 09/30/23 STATUS: NIRMALA PEREZ NUM: [id number] BHAVIN: 09/29/23-[address]: Mackenzie Estrada ENTERED: 09/30/23132 SP TYPE: Pap Smr OTHR DR: ORDERED: Pap Smear Interpretation Satisfactory for evaluation. Negative for intraepithelial lesion or malignancy. HPV mRNA E6/E7: NOT DETECTED This assay detects E6/E7 viral messenger RNA (mRNA) from 14 high-risk HPV types (16, 18, 31, 33, 35, 39, 45, 51, 52, 56, 58, 59, 66, 68) HPV testing performed by [facility], [place], [place]. See reference laboratory portion of the EMR for entire report. Clinical Information LMP: Heavy menstrual bleeding past two weeks Previous PAP test: Unknown date/findings Other history: Material Received ThinPrep-Cervical ----- ------- Signed (signature on file) BARB Hawley ([facility]) 10/12/23 1618 ----- ------- END OF REPORT Mackenzie Estrada MD LAB CYTOLOGY ORDERABLES Final Result [facility] [address] [place] [phone] * Mammography Report 1 (10/09/2021 12:05 [...] LDL-C. Hi SS et al. ROXY. 2013;310(19): 4753-9193 (http://education.[employer]/faq/RGQ957) Non-HDL Cholesterol 175(H) <130 mg/dL (calc) [facility] Comment: For patients with diabetes plus 1 major ASCVD risk factor, treating to a non-HDL-C goal of <100 mg/dL (LDL-C of <70 mg/dL) is considered a therapeutic option. Triglycerides 237(H) <150 mg/dL [facility] Comment: If a non-fasting specimen was collected, consider repeat triglyceride testing on a fasting specimen if clinically indicated. Cory et al. J. of Clin. Lipidol. 2015;9:129-169. 09/14/2021 2:52 PM EST Mackenzie Estrada MD LAB BLOOD ORDERABLES Final Res ult [facility] [address] [place] [address], * Colonoscopy (10/28/2017) Colonoscopy Normal Normal Narrative Cecilia Henriquez - 10/28/2017 [place] [place] Provider HEALTH MAINTENANCE Edited Result - Final from Last 3 Months or Most Recently Relevant to Health Maintenance Insurance [facility] C3 DENTAL-[facility] MEDICAID STAND ADULT Care Teams Cadmium Liquor Maker Relationship Specialty Start Date End Date Mackenzie Estrada MD [address] [place] [phone] PCP - General Family Medicine 07/10/20 Hemalatha Pretty Lead MachinistDisplay Decorator 01/02/25
--- OUTSIDE RECORDS SUMMARY | 2025-03-28 10:32 | XMS_ITS | Encounter Summary ---
Author Organization [facility] Address [address] [facility]t [place] [address] Care Team Providers Care Pinsetter Mechanic Automatic Name Role Phone Mackenzie Estrada MD Primary Care Provider [phone] Casper Magaña RN Unavailable [phone] Ruth Ann Price Unavailable Unavailable Ruth Ann Price Unavailable Encounter Details Date Type Department Care Team ([facility] Contact Info) Description 03/29/2023 Abstract [facility] [address] [place], [place] [phone] Cecilia Henriquez Social History Tobacco Use Types [...] 05/14/2025 9:45 AM EDT Office Visit [facility] [address] [place], [place] [phone] documented as of this encounter Procedures Procedure Name Priority Date/Time Associated Diagnosis Comments COLONOSCOPY Routine 10/28/2017 documented in this encounter Results * Colonoscopy (10/28/2017) Colonoscopy Normal Normal Narrative Cecilia Henriquez - 10/28/2017 [place]commended 10 [place] [place] Historical Provider HEALTH MAINTENANCE Edited Result - Final documented in this encounter Visit Diagnoses Not on filedocumented in this encounter Care Teams Pinsetter Mechanic Automatic Relationship Specialty Start Date End Date Mackenzie Estrada MD [address] [place] [address] PCP - General Family Medicine 07/10/20 Casper Magaña, JENNIFER [address] [place] [address] Registered Nurse Family Medicine 01/18/25 01/18/25 Ruth Ann Price 02/19/25 02/19/25 Ruth Ann Price 02/19/25 02/28/25 Hemalatha Pretty Pattern Changer And RepairerAmmunition And Explosives Handler 01/02/25 documented as of this encounter
--- OUTSIDE RECORDS SUMMARY | 2025-03-28 10:32 | XMS_ITS | Encounter Summary ---
Author Organization [employer] Address [address] [facility] [address] [place] [address] Care Team Providers Care Residential Assistant Name Role Phone Mackenzie Estrada MD Primary Care Provider [phone] Casper Magaña RN Unavailable Ruth Ann Price Unavailable Unavailable Ruth Ann Price Unavailable Reason for Referral * Imaging (Routine) - Closed Specialty Diagnoses / Procedures Referred By Contac t Referred To Contact Radiology Diagnoses Abnormal ultrasound of pelvis Procedures MR Pelvis w/ and w/o Contrast Mackenzie Estrada MD [address] [place] [address] Phone: tel: fax: [address] Phone: tel: fax: Referral ID Status Reason Start Date Expiration Date Visits Re quested Visits Authorized [id number] Closed 10/31/2023 10/30/2024 1 1 Encounter Details Date Type Department Care Team (Late st Contact Info) Description 10/31/2023 Orders Only [facility] [address] [place], [place] [phone] Mackenzie Estrada MD [address] [place], [place] [phone] Abnormal ultrasound of pelvis (Primary Dx) Social [...] which I need to talk to her industrial psychology professor about. Thank you! documented in this encounter Plan of Treatment Upcoming Encounters Date Type Department Care Team (Late st Contact Info) Description 05/14/2025 9:45 AM EDT Office Visit [facility] [address] [place] [address] documented as of this encounter Goals Goal [...] PM EDT Narrative 12/07/2023 9:11 AM EDT [address] [address] Magnetic Resonance Report Signed Patient: Ginette Arceo MR #: [id number] : 1975 Acct:[id number] Age/Sex: 48 / F ADM Date: 11/25/23 Loc: .MRI Attending Dr: Mackenzie Estrada MD Ordering Physician: Mackenzie Estrada Date of Service: 11/25/23 Procedure(s): MR pelvis wo/w con Accession Number(s): [id number] cc: Mackenzie Estrada EXAMINATION: MR PELVIS WITHOUT [...] measures 7.8 x 3.6 x 4.3 cm (xijpfe-xd-sssvex x AP x transverse dimension). The junctional [...] in OV> 12/07/23 0907 DD/ 1505 TD/TT: Architectural Design Lecturer: Procedure Note Donotuseinterpreter, Image - 12/07/[address] [address] Magnetic Resonance Report Signed Patient: Ginette Arceo #: [id number] : 1975Acct:[id number] Age/Sex: 48 / FADM Date: 11/25/23 Loc: HO.MRI Attending Dr: Mackenzie Estrada MD Ordering Physician: Mackenzie Estrada Date of Service: 11/25/23 Procedure(s): MR pelvis wo/w con Accession Number(s): [id number] cc: Mackenzie Estrada EXAMINATION: MR PELVIS WITHOUT [...] measures 7.8 x 3.6 x 4.3 cm (aomxgo-sk-oathoh x AP x transverse dimension). The junctional [...] in OV> 12/07/23 0907 DD/ 1505 TD/TT: Architectural Design Lecturer: PD us Mackenzie Estrada MD IMG MRI PROCEDURES Final Resul t documented in this encounter Visit Diagnoses Diagnosis Abnormal ultrasound of pelvis- Primary documented in this encounter Care Teams Residential Assistant Relationship Specialty Start Date End Date Mackenzie Estrada MD [address] [place] [address] PCP - General Family Medicine 07/10/20 Casper Magaña, RN [address] [place] [phone] Registered Nurse Family Medicine 01/18/25 01/18/25 Ruth Ann Price 02/19/25 02/19/25 Ruth Ann Price 02/19/25 02/28/25 Hemalatha Pretty Cylinder WorkerElevator Technician 01/02/25 documented as of this encounter
--- OUTSIDE RECORDS SUMMARY | 2025-03-28 10:32 | XMS_ITS | Encounter Summary ---
Author Organization [employer] Address [address] [facility] [address] [place] [address] Care Team Providers Care Bench Patternmaker Metal Name Role Phone Mackenzie Estrada MD Primary Care Provider [phone] Casper Magaña RN Unavailable [phone] Ruth Ann Price Unavailable Unavailable Ruth Ann Price Unavailable Reason for Visit * Reason Comments Med Refill Encounter Details Date Type Department Care Team ([facility] st Contact Info) Description 06/01/2023 Refill [facility] [address] [place], [place] [phone] Mackenzie Estrada MD [address] [place], [place] [phone] Pain in both hands Social History Tobacco [...] Office Visit [facility] [address] [place] [address] documented as of this encounter Goals Goal Patient Goal Type Associated Problems Recent Progress Patient-Stated? Author Quit using tobacco (cigarettes, smokeless, etc) Tobacco Use Corey Cornell, Bailey documented as of this encounter Visit Diagnoses Diagnosis Pain in both hands documented in this encounter Care Teams Bench Patternmaker Metal Relationship Specialty Start Date End Date Mackenzie Estrada MD [address] [place] [address] PCP - General Family Medicine 07/10/20 Casper Magaña, JENNIFER [address] [place] [address] Registered Nurse Family Medicine 01/18/25 01/18/25 Ruth Ann Price 02/19/25 02/19/25 Ruth Ann Price 02/19/25 02/28/25 Hemalatha Pretty Display Fabrication SupervisorCrm Administrator 01/02/25 documented as of this encounter
--- OUTSIDE RECORDS SUMMARY | 2025-03-28 10:32 | XMS_ITS | Encounter Summary ---
Author Organization [employer] Address [address] [facility] [address] 7t [place] [address] Care Team Providers Care Instrument Calibrator Name Role Phone Mackenzie Estrada MD Primary Care Provider [phone] Casper Magaña RN Unavailable [phone] Ruth Ann Price Unavailable Unavailable Ruth Ann Price Unavailable Encounter Details Date Type Department Care Team (Late st Contact Info) Description 06/03/2023 Orders Only [facility] MED[facility]INE [address] [place] [address] Mackenzie Estrada MD 230 [place], [place] [phone] Pain in both hands Social History Tobacco [...] Description 05/14/2025 9:45 AM EDT Office Visit [facility] [address] [place] [phone] documented as of this encounter Goals Goal [...] PM EST Narrative 06/03/2023 5:47 PM EDT [address] [address] XRay Report Signed Patient: Ginette Arceo MR #: [id number] : 1975 Acct:[id number] Age/Sex: 47 / F ADM Date: 06/25/23 Loc: .ED Attending Dr: Ordering Physician: Treasure Clemons Date of Service: 06/25/23 Procedure(s): XR chest 2V Accession Number(s): [id number] cc: Mackenzie Estrada; Treasure Clemons EXAMINATION: XR [...] in OV> 06/25/23 1230 DD/ 1215 TD/TT: Medical Office Technician: [facility] Procedure Note Donotuseinterpreter, Image - 06/25/[address] [address] XRay Report Signed Patient: Ginette ArceoMR #: [id number] : 1975Acct:[id number] Age/Sex: 47 / FADM Date: 06/25/23 Loc: .ED Attending Dr: Ordering Physician: Treasure Clemons Date of Service: 06/25/23 Procedure(s): XR chest 2V Accession Number(s): [id number] cc: Mackenzie Estrada; Treasure Clemons EXAMINATION: XR [...] in OV> 06/25/23 1230 DD/ 1215 TD/TT: Medical Office Technician: [facility] External Provider IMG XR PROCEDURES Edited Result - Final * (ABNORMAL) Urinalysis, Complete, with Reflex to Culture (06/03/2023 4:49 PM EDT) Color Urine Yellow [facility] Appearance Urine Clear [facility] PH 5.5 5.0 - 9.0 [facility] Glucose Urine UA Negative Negative mg/dL [facility] Urine Blood Large (3+)(A) Negative [facility] Specific [place] - Urine 1.025 1.005 - 1.025 [facility] Urine Protein Negative Neg-Trace mg/dL [facility] Urine Ketones Negative Negative mg/dL [facility] Nitrite Urine Negative Negative [facility] Leukocyte Esterase Urine Negative Negative [facility] RBC Urine >20(A) 0 - 2 /HPF [facility] Urine WBC 0-5 0 - 5 /HPF [facility] Urine Squamous Epithelial Cell 11-20 0 - 2 /HPF [facility] Urine Bacteria 1+ None Seen [facility] Hyaline Casts, Urine 0-2 0 - 2 /LPF [facility] 06/03/2023 4:49 PM EDT 06/03/2023 4:52 PM EDT Narrative [facility] - 06/03/2023 5:00 PM EDT Urine, Clean Catch Generic External Data Provider LAB URINE ORDERAB LES Final Result [facility] [address] [place] [phone] * (ABNORMAL) Urinalysis w/reflex microscopic (06/03/2023 4:49 PM EDT) Color Urine Yellow [facility] Appearance Urine Clear [facility] PH 5.5 5.0 - 9.0 [facility] Glucose Urine UA Negative Negative mg/dL [facility] Urine Blood Large (3+)(A) Negative [facility] Specific [place] - Urine 1.025 1.005 - 1.025 [facility] Urine Protein Negative Neg-Trace mg/dL [facility] Urine Ketones Negative Negative mg/dL [facility] Nitrite Urine Negative Negative [facility] Leukocyte Esterase Urine Negative Negative [facility] 06/03/2023 4:49 PM EDT 06/03/2023 4:52 PM EDT Narrative [facility] - 06/03/2023 4:57 PM EDT Urine, Clean Catch us Generic External Data Provider LAB URINE ORDERAB LES Final Result [facility] [address] [place] [phone] * Influenza A B2 ID NOW ([place]) (06/03/2023 4:34 PM EDT) IDNOW SERIAL# [id number] [facility] Influenza A Negative Negative [facility] Influenza B2 Negative Negative [facility] Influenza A B2 Note See Note [facility] Comment:The Corona ID NOW [...] GENERAL ORDERABLES Final Result Performing Organization Address [facility] Co de Phone Number [facility] [address] [place] [phone] * COVID-19 ID NOW (CORONA) (06/03/2023 4:34 PM EDT) IDNOW SERIAL# [id number] [facility] COVID-19 TEST Negative Negative [facility] COVID-19 NOTE See Note [facility] Comment: Results are for the identification of SARS-CoV2 RNA. TheSARS-CoV2 RNA is generally detectable in respiratory samplesduring the acute phase of infection. Positive results areindicative of the presence of SARS-CoV-2 RNA; clinicalcorrelation with patient history and other diagnosticinformation is necessary to determine patient infectionstatus. Positive results do not rule out bacterial infectionor co- infection with other viruses.Testing facilities within the [facility] and [facility] are required to report all positive results [...] GNOSTICS ORDERABLES Final Result Performing Organization Address City/[facility]/ZIP Co de Phone Number [facility] [address] [place] [phone] documented in this encounter Visit Diagnoses Diagnosis Pain in both hands documented in this encounter Care Teams Instrument Calibrator Relationship Specialty Start Date End Date Mackenzie Estrada MD [address] [place] [address] PCP - General Family Medicine 07/10/20 Casper Magaña RN [address] [place] [address] Registered Nurse Family Medicine 01/18/25 01/18/25 Ruth Ann Price 02/19/25 02/19/25 Ruth Ann Price 02/19/25 02/28/25 Hemalatha Pretty Core BlowerLining Vamper 01/02/25 documented as of this encounter
--- OUTSIDE RECORDS SUMMARY | 2025-03-28 10:32 | XMS_ITS | Encounter Summary ---
Author Organization [employer] Address [address] [facility] 7t [place] [address] Care Team Providers Care Band Cutter Name Role Phone Mackenzie Estrada MD Primary Care Provider [phone] Ruth Ann Price Unavailable Unavailable Ruth Ann Price Unavailable Reason for Visit * Reason Comments Med Refill Encounter Details Date Type Department Care Team ([facility] Contact Info) Description 02/01/2025 Refill [facility]INE [address] [place] [address] Ebony Daigle MD [address] [place] [address] Social History Tobacco Use Types Packs/Day Years [...] 05/14/2025 9:45 AM EDT Office Visit [facility] [address] [place] [address] documented as of this encounter Goals Goal [...] documented as of this encounter Care Teams Band Cutter Relationship Specialty Start Date End Date Mackenzie Estrada MD [address] [place] [address] PCP - General Family Medicine 07/10/20 Ruth Ann Price 02/19/25 02/19/25 Ruth Ann Price 02/19/25 02/28/25 Hemalatha Pretty Cement Block MakerRevenue Enforcement Collection Agent 01/02/25 documented as of this encounter
--- OUTSIDE RECORDS SUMMARY | 2025-03-28 10:32 | XMS_ITS | Encounter Summary ---
Author Organization [employer] Address [address] [facility] 7t [place] [address] Care Team Providers Care Academic Services Professional Name Role Phone Mackenzie Estrada MD Primary Care Provider [phone] Casper Magaña RN Unavailable [phone] Ruth Ann Price Unavailable Unavailable Ruth Ann Price Unavailable Reason for Visit * Reason Comments Med Refill Encounter Details Date Type Department Care Team ([facility] st Contact Info) Description 02/08/2023 Refill [facility] MEDICINE [address] [place] [address] Mackenzie Estrada MD 230 [place], [place] [phone] Pain in both hands Social History Tobacco [...] Description 05/14/2025 9:45 AM EDT Office Visit [facility]INE [address] [place] [address] documented as of this encounter Visit Diagnoses Diagnosis Pain in both hands documented in this encounter Care Teams Academic Services Professional Relationship Specialty Start Date End Date Mackenzie Estrada MD [address] [place] [address] PCP - General Family Medicine 07/10/20 Casper Magaña, JENNIFER [address] [place] [address] Registered Nurse Family Medicine 01/18/25 01/18/25 Ruth Ann Price 02/19/25 02/19/25 Ruth Ann Price 02/19/25 02/28/25 Hemalatha Pretty Planner ChiefBrass Wind Instruments Tube Bender 01/02/25 documented as of this encounter
--- OUTSIDE RECORDS SUMMARY | 2025-03-28 10:32 | XMS_ITS | Encounter Summary ---
Author Organization [employer] Address [address] [facility] [address] [facility] [address] 7[address] [place] [address] Care Team Providers Care Environmental Aide Name Role Phone Mackenzie Estrada MD Primary Care Provider [phone] Casper Magaña RN Unavailable [phone] Ruth Ann Price Unavailable Unavailable Ruth Ann Price Unavailable Encounter Details Date Type Department Care Team (Late st Contact Info) Description 10/03/2023 Orders Only [facility] MEDICINE 230 [place], [place] [phone] Mackenzie Estrada MD 230 [place], [place] [phone] Bacterial vaginosis (Primary Dx) Social History Tobacco [...] Description 05/14/2025 9:45 AM EDT Office Visit [facility] 230 [place] [address] documented as of this encounter Goals Goal Patient Goal Type Associated Problems Recent Progress Patient-Stated? Author Quit using tobacco (cigarettes, smokeless, etc) Tobacco Use Corey Cornell, Bailey documented as of this encounter Visit Diagnoses Diagnosis Bacterial vaginosis- Primary Unspecified vaginitis and vulvovaginitis documented in this encounter Care Teams Environmental Aide Relationship Specialty Start Date End Date Mackenzie Estrada MD 230 [place] [address] PCP - General Family Medicine 07/10/20 Casper Magaña, JENNIFER [address] [place] [address] Registered Nurse Family Medicine 01/18/25 01/18/25 Ruth Ann Price 02/19/25 02/19/25 Ruth Ann Price 02/19/25 02/28/25 Hemalatha Pretty Biodiesel Process Control TechnicianWire Galvanizer 01/02/25 documented as of this encounter
--- OUTSIDE RECORDS SUMMARY | 2025-03-28 10:32 | XMS_ITS | Encounter Summary ---
Author Organization [employer] Address [address] [facility] 7t [place] [address] Care Team Providers Care Offal Roller Name Role Phone Mackenzie Estrada MD Primary Care Provider Casper Magaña RN Unavailable [phone] Ruth Ann Price Unavailable Unavailable Ruth Ann Price Unavailable Reason for Visit * Reason Comments Med Refill Encounter Details Date Type Department Care Team ([facility] st Contact Info) Description 08/19/2024 Refill [facility] MED[facility]INE [address] [place], [place] [phone] Mackenzie Estrada MD 230 [place], [place] [phone] Social History Tobacco Use Types Packs/Day Years [...] Visit [facility] MED[facility]INE [address] [place] [address] documented as of this encounter Goals Goal [...] documented as of this encounter Care Teams Offal Roller Relationship Specialty Start Date End Date Mackenzie Estrada MD 230 [place] [address] PCP - General Family Medicine 07/10/20 Casper Magaña, JENNIFER [address] [place] [address] Registered Nurse Family Medicine 01/18/25 01/18/25 Ruth Ann Price 02/19/25 02/19/25 Ruth Ann Price 02/19/25 02/28/25 Hemalatha Pretty Ecologist TechnicianChuck Wagon Driver 01/02/25 documented as of this encounter
--- OUTSIDE RECORDS SUMMARY | 2025-03-28 10:32 | XMS_ITS | Encounter Summary ---
Author Organization [employer] Address [address] 7[address] [place] [address] Care Team Providers Care Gas Engine Performance Engineer Name Role Phone Mackenzie Estrada MD Primary Care Provider [phone] Casper Magaña RN Unavailable [phone] Ruth Ann Price Unavailable Unavailable Ruth Ann Price Unavailable Encounter Details Date Type Department Care Team (Late st Contact Info) Description 06/01/2023 Orders Only [facility] MEDICINE 230 [place] [address] Mackenzie Estrada MD 230 [place], [place] [phone] Encounter for smoking cessation counseling (Primary Dx) [...] 9:45 AM EDT Office Visit [facility] [address] [place] [address] documented as of this encounter Goals Goal Patient Goal Type Associated Problems Recent Progress Patient-Stated? Author Quit using tobacco (cigarettes, smokeless, etc) Tobacco Use Corey Cornell, KelechiD documented as of this encounter Visit Diagnoses Diagnosis Encounter for smoking cessation counseling- Primary documented in this encounter Care Teams Gas Engine Performance Engineer Relationship Specialty Start Date End Date Mackenzie Estrada MD [address] [place] [address] PCP - General Family Medicine 07/10/20 Casper Magaña, JENNIFER [address] [place] [address] Registered Nurse Family Medicine 01/18/25 01/18/25 Ruth Ann Price 02/19/25 02/19/25 Ruth Ann Price 02/19/25 02/28/25 Hemalatha Pretty Floor SpecialistOperating Room Technologist 01/02/25 documented as of this encounter
--- OUTSIDE RECORDS SUMMARY | 2025-03-28 10:32 | XMS_ITS | Encounter Summary ---
Author Organization [employer] Address [address] [facility] [address] 7t [place] [address] Care Team Providers Care Activities Aide Name Role Phone Mackenzie Estrada MD Primary Care Provider [phone] Casper Magaña RN Unavailable [phone] Ruth Ann Price Unavailable Unavailable Ruth Ann Price Unavailable Encounter Details Date Type Department Care Team (Late st Contact Info) Description 12/13/2023 Orders Only [facility] MEDICINE 230 [place] [address] Mackenzie Estrada MD 230 [place], [place] [phone] Pain in both hands Social History Tobacco [...] 05/14/2025 9:45 AM EDT Office Visit [facility] MEDICINE [address] [place] [address] documented as of this encounter Goals Goal Patient Goal Type Associated Problems Recent Progress Patient-Stated? Author Quit using tobacco (cigarettes, smokeless, etc) Tobacco Use No Corey Lin, KelechiD documented as of this encounter Visit Diagnoses Diagnosis Pain in both hands documented in this encounter Care Teams Activities Aide Relationship Specialty Start Date End Date Mackenzie Estrada MD 230 [place] [address] PCP - General Family Medicine 07/10/20 Casper Magaña, RN [address] [place] [address] Registered Nurse Family Medicine 01/18/25 01/18/25 Ruth Ann Price 02/19/25 02/19/25 Ruth Ann Price 02/19/25 02/28/25 Hemalatha Pretty Bath TesterPlug Assembler 01/02/25 documented as of this encounter
--- OUTSIDE RECORDS SUMMARY | 2025-03-28 10:32 | XMS_ITS | Encounter Summary ---
Author Organization [employer] Address [address] [facility] [address] 7t [place] [address] Care Team Providers Care Salesforce Trainer Name Role Phone Mackenzie Estrada MD Primary Care Provider Casper Magaña RN Unavailable [phone] Ruth Ann Price Unavailable Unavailable Ruth Ann Price Unavailable Reason for Visit * Reason Comments Med Refill Encounter Details Date Type Department Care Team ([facility] st Contact Info) Description 10/10/2024 Refill [facility] MEDICINE 230 [place] [address] Mackenzie Estrada MD 230 [place], [place] [phone] 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 [...] Description 05/14/2025 9:45 AM EDT Office Visit [facility] [address] [place] [address] documented as of this encounter Goals Goal [...] documented as of this encounter Care Teams Salesforce Trainer Relationship Specialty Start Date End Date Mackenzie Estrada MD [address] [place] [address] PCP - General Family Medicine 07/10/20 Casper Magaña, RN [address] [place] [address] Registered Nurse Family Medicine 01/18/25 01/18/25 Ruth Ann Price 02/19/25 02/19/25 Ruth Ann Price 02/19/25 02/28/25 Hemalatha Pretty Tennis PlayerSoftware Consultant 01/02/25 documented as of this encounter
--- OUTSIDE RECORDS SUMMARY | 2025-03-28 10:32 | XMS_ITS | Encounter Summary ---
Author Organization [employer] Address [address] [facility] 7t [place] [address] Care Team Providers Care Water Plant Pump Operator Supervisor Name Role Phone Mackenzie Estrada MD Primary Care Provider [phone] Casper Magaña RN Unavailable [phone] Ruth Ann Price Unavailable Unavailable Ruth Ann Price Unavailable Reason for Visit * Reason Onset Date Comments Hospital Follow-up 02/24/2024 Encounter Details Date Type Department Care Team ([facility] st Contact Info) Description 02/24/2024 Telephone [facility] MEDICINE 230 [place] [address] Mackenzie Estrada MD 230 [place], [place] [phone] Hospital Follow-up Social History Tobacco Use Types [...] the past 12 months, has t he [email or web address], gas, oil or water [employer] threatened to shut off services in your [...] from pt requesting a HDF appt. Hospital: [facility] Date of admission: 02/19 Discharge date: 02/23 Diagnosed: Rectal Bleeding Panamanian Speaker documented in this encounter Plan of Treatment Upcoming Encounters Date Type Department Care Team (Late st Contact Info) Description 05/14/2025 9:45 AM EDT Office Visit [facility] MED[facility]INE [address] [place] [address] documented as of this encounter Goals Goal Patient Goal Type Associated Problems Recent Progress Patient-Stated? Author Quit using tobacco (cigarettes, smokeless, etc) Tobacco Use No Corey Lin, PharmD documented as of this encounter Visit Diagnoses Not on filedocumented in this encounter Care Teams Water Plant Pump Operator Supervisor Relationship Specialty Start Date End Date Mackenzie Estrada MD 230 [place] [address] PCP - General Family Medicine 07/10/20 Casper Magaña, RN [address] [place] [address] [place] [address] Registered Nurse Family Medicine 01/18/25 01/18/25 Ruth Ann Price 02/19/25 02/19/25 Ruth Ann Price 02/19/25 02/28/25 Hemalatha Pretty Tying Machine Operator LumberPrivate Branch Exchange Service Advisor 01/02/25 documented as of this encounter
--- OUTSIDE RECORDS SUMMARY | 2025-03-28 10:32 | XMS_ITS | Encounter Summary ---
Author Organization [employer] [facility] Address [address] [facility] 7t [place] [address] Care Team Providers Care Freight Receiver Name Role Phone Mackenzie Estrada MD Primary Care Provider [phone] Casper Magaña RN Unavailable [phone] Ruth Ann Price Unavailable Unavailable Ruth Ann Price Unavailable Encounter Details Date Type Department Care Team ([facility] Contact Info) Description 03/04/2023 Orders Only [facility] MEDICINE [address] [place] [address] Kat Yo MD 230 [place], [place] [phone] Social History Tobacco Use Types Packs/Day Years [...] Description 05/14/2025 9:45 AM EDT Office Visit [facility] MED[facility]INE [address] [place] [phone] documented as of this encounter Visit Diagnoses Not on filedocumented in this encounter Care Teams Freight Receiver Relationship Specialty Start Date End Date Mackenzie Estrada MD [address] [place] [address] PCP - General Family Medicine 07/10/20 Casper Magaña, RN [address] [place] [address] [place] [address] Registered Nurse Family Medicine 01/18/25 01/18/25 Ruth Ann Price 02/19/25 02/19/25 Ruth Ann Price 02/19/25 02/28/25 Hemalatha Pretty Embroidery PatternmakerRunner On 01/02/25 documented as of this encounter
--- OUTSIDE RECORDS SUMMARY | 2025-03-28 10:32 | XMS_ITS | Encounter Summary ---
Author Organization [employer] Address [address] [facility] 7t [place] [address] Care Team Providers Care Product Finisher Name Role Phone Mackenzie Estrada MD Primary Care Provider Ruth Ann Price Unavailable Unavailable Ruth Ann Price Unavailable Reason for Visit * Reason Comments Med Refill Encounter Details Date Type Department Care Team ([facility] Contact Info) Description 01/24/2025 Refill [facility]INE 230 [place] [address] Ebony Daigle MD 230 [place] [address] Rheumatoid arthritis involving multiple sites with positive rheumatoid factor ([facility]) Social History Tobacco Use Types Packs/Day Years [...] Description 05/14/2025 9:45 AM EDT Office Visit [facility]INE 230 [place] [address] documented as of this encounter Goals Goal [...] as of this encounter Care Teams Product Finisher Relationship Specialty Start Date End Date Mackenzie Estrada MD [address] [place] [address] PCP - General Family Medicine 07/10/20 Ruth Ann Price 02/19/25 02/19/25 Ruth Ann Price 02/19/25 02/28/25 Hemalatha Pretty Funeral Pre Arrangement SpecialistDuplicating Machine Mechanic 01/02/25 documented as of this encounter
--- OUTSIDE RECORDS SUMMARY | 2025-03-28 10:32 | XMS_ITS | Clinical Summary ---
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 Acute deep vein thrombosis ( DVT) of brachial vein of right upper extremity ([facility] V24, [facility] V28) 05/09/2020 DX:Acute deep vein thrombos is (DVT) of brachial vein of right upper extremity (HCC) Axillary lymphadenopathy 05/09/2020 DX:Axil harvinder lymphadenopathy Gastroesophageal reflux disease 05/09/2020 DX:Gastroesophageal reflux disease Personal history of Hodgkin lymphoma 05/09/2020 DX:Personal history of Hodgkin lymphoma Recurrent major depressive d isorder in remission ([facility] V24) 05/09/2020 DX:Recurrent major depressiv e disorder in remission (HCC) Rheumatoid arthritis involvi ng multiple sites ([facility] V24, [facility] V28) 05/09/2020 DX:Rheumatoid arthritis invo lving multiple sites (HCC) Hodgkin's disease, nodular s clerosis, of lymph nodes of multiple sites ([facility] V24, [facility] V28) DX:Hodgkin's disease, nodul ar sclerosis, [...] age to complete this topic Care Teams Urgent Care Nurse Practitioner Relationship Specialty Start Date End Date Sanjay Cruz MD [address] [place] [phone] PCP - General Internal Medicine 04/09/20
--- OUTSIDE RECORDS SUMMARY | 2025-03-28 10:32 | XMS_ITS | Encounter Summary ---
Author Organization [employer] Address [address] [facility] [address] 7t [place] [address] Care Team Providers Care Senior Software Project Manager Name Role Phone Mackenzie Estrada MD Primary Care Provider [phone] Casper Magaña RN Unavailable [phone] Ruth Ann Price Unavailable Unavailable Ruth Ann Price Unavailable Reason for Visit * Reason Comments Med Refill Encounter Details Date Type Department Care Team ([facility] st Contact Info) Description 10/10/2024 Refill [facility] 230 [place] [address] Kat Yo MD 230 [place] [address] Rheumatoid arthritis involving right hand with positive [...] Description 05/14/2025 9:45 AM EDT Office Visit [facility] 230 [place] [address] documented as of this encounter Goals Goal [...] as of this encounter Care Teams Senior Software Project Manager Relationship Specialty Start Date End Date Mackenzie Estrada MD 230 [place] [address] PCP - General Family Medicine 07/10/20 Casper Magaña, RN [address] [place] [address] Registered Nurse Family Medicine 01/18/25 01/18/25 Ruth Ann Price 02/19/25 02/19/25 Ruth Ann Price 02/19/25 02/28/25 Hemalatha Pretty Front Desk PersonJet Engine Mechanic 01/02/25 documented as of this encounter
--- OUTSIDE RECORDS SUMMARY | 2025-03-28 10:32 | XMS_ITS | Encounter Summary ---
Author Organization [employer] Address [address] [facility] [address] 7t [place] [address] Care Team Providers Care Agronomy Technician Name Role Phone Macknezie Estrada MD Primary Care Provider [phone] Casper Magaña RN Unavailable [phone] Ruth Ann Price Unavailable Unavailable Ruth Ann Price Unavailable Reason for Visit * Reason Comments Med Refill Encounter Details Date Type Department Care Team ([facility] st Contact Info) Description 07/20/2024 Refill [facility] 230 [place] [address] Mackenzie Estrada MD 230 [place], [place] [phone] 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 I have menodza prince 05/15/[address] you [...] Description 05/14/2025 9:45 AM EDT Office Visit [facility] 230 [place] [address] documented as of this encounter Goals Goal [...] documented as of this encounter Care Teams Agronomy Technician Relationship Specialty Start Date End Date Mackenzie Estrada MD 230 [place] [address] PCP - General Family Medicine 07/10/20 Casper Magaña RN [address] [place] [address] [place] [address] Registered Nurse Family Medicine 01/18/25 01/18/25 Ruth Ann Price 02/19/25 02/19/25 Ruth Ann Price 02/19/25 02/28/25 Hemalatha Pretty Reporter AnchorMine Safety Engineer 01/02/25 documented as of this encounter
--- OUTSIDE RECORDS SUMMARY | 2025-03-28 10:32 | XMS_ITS | Encounter Summary ---
Author Organization [facility] Address 75 [facility] 7t [place] [address] Care Team Providers Care Paper Mill Superintendent Name Role Phone Mackenzie Estrada MD Primary Care Provider [phone] Casper Magaña RN Unavailable [phone] Ruth Ann Price Unavailable Unavailable Ruth Ann Price Unavailable Reason for Visit * Reason Comments Med Refill Encounter Details Date Type Department [facility] Description 12/10/2022 Refill [facility] [address] [place] [address] Mackenzie Estrada MD 230 [place], [place] [phone] Pain in both hands Social History Tobacco [...] [facility] Description 05/14/2025 9:45 AM EDT Office Visit [facility] 230 [place] [address] documented as of this encounter Visit Diagnoses Diagnosis Pain in both hands documented in this encounter Care Teams Paper Mill Superintendent Relationship Specialty Start Date End Date Mackenzie Estrada MD 230 [place] [address] PCP - General Family Medicine 07/10/20 Casper Magaña, JENNIFER [address] [place] [address] Registered Nurse Family Medicine 01/18/25 01/18/25 Ruth Ann Price 02/19/25 02/19/25 Ruth Ann Price 02/19/25 02/28/25 Hemalatha Pretty Bolter HelperUnderwear Finisher 01/02/25 documented as of this encounter
--- OUTSIDE RECORDS SUMMARY | 2025-03-28 10:32 | XMS_ITS | Encounter Summary ---
Author Organization [employer] Address 75 [facility] 7t [place] [address] Care Team Providers Care Precision Millwright Name Role Phone aMckenzie Estrada MD Primary Care Provider [phone] Casper Magaña RN Unavailable [phone] Ruth Ann Price Unavailable Unavailable Ruth Ann Price Unavailable Reason for Visit * Reason Comments Med Refill Encounter Details Date Type Department Care Team ([facility] st Contact Info) Description 11/18/2023 Refill [facility] 230 [place], [place] [phone] Mackenzie Estrada MD 230 [place], [place] [phone] Pain in both hands Social History Tobacco [...] Description 05/14/2025 9:45 AM EDT Office Visit [facility] 230 [place] [address] documented as of this encounter Goals Goal Patient Goal Type Associated Problems Recent Progress Patient-Stated? Author Quit using tobacco (cigarettes, smokeless, etc) Tobacco Use Corey Cornell, Bailey documented as of this encounter Visit Diagnoses Diagnosis Pain in both hands documented in this encounter Care Teams Precision Millwright Relationship Specialty Start Date End Date Mackenzie Estrada MD 230 [place] [address] PCP - General Family Medicine 07/10/20 Casper Magaña, JENNIFER [address] [place] [address] Registered Nurse Family Medicine 01/18/25 01/18/25 Ruth Ann Price 02/19/25 02/19/25 Ruth Ann Price 02/19/25 02/28/25 Hemalatha Pretty Development PlannerColoring Checker 01/02/25 documented as of this encounter
--- OUTSIDE RECORDS SUMMARY | 2025-03-28 10:32 | XMS_ITS | Encounter Summary ---
Author Organization [employer] Address 75 [facility] 7t [place] [address] Care Team Providers Care Information Technology Administrator Name Role Phone Mackenzie Estrada MD Primary Care Provider [phone] Casper Magaña RN Unavailable [phone] Ruth Ann Price Unavailable Unavailable Ruth Ann Price Unavailable Reason for Visit * Reason Comments Med Refill Encounter Details Date Type Department Care Team ([facility] st Contact Info) Description 06/02/2023 Refill [facility] 230 [place] [address] Mackenzie Estraad MD 230 [place], [place] [phone] Pain in both hands Social History Tobacco [...] Description 05/14/2025 9:45 AM EDT Office Visit [facility] 230 [place] [address] documented as of this encounter Goals Goal Patient Goal Type Associated Problems Recent Progress Patient-Stated? Author Quit using tobacco (cigarettes, smokeless, etc) Tobacco Use Corey Cornell, Bailey documented as of this encounter Visit Diagnoses Diagnosis Pain in both hands documented in this encounter Care Teams Information Technology Administrator Relationship Specialty Start Date End Date Mackenzie Estrada MD 230 [place] [address] PCP - General Family Medicine 07/10/20 Casper Magaña, JENNIFER [address] [place] [address] Registered Nurse Family Medicine 01/18/25 01/18/25 Ruth Ann Price 02/19/25 02/19/25 Ruth Ann Price 02/19/25 02/28/25 Hemalatha Pretty Impression PrinterBerry Picker Machine Operator 01/02/25 documented as of this encounter
--- OUTSIDE RECORDS SUMMARY | 2025-03-28 10:33 | XMS_ITS | Encounter Summary ---
Author Organization [employer] Address [address] [facility] [address] 7t [place] [address] Care Team Providers Care Paraprofessional Aide Teacher Name Role Phone Mackenzie Estrada MD Primary Care Provider [phone] Casper Magaña RN Unavailable [phone] Ruth Ann Price Unavailable Unavailable Ruth Ann Price Unavailable Encounter Details Date Type Department Care Team ([facility] st Contact Info) Description 05/21/2024 Telephone [facility] 230 [place] [address] Mackenzie Estrada MD [address] [place], [place] [phone] Social History Tobacco Use Types Packs/Day Years [...] Description 05/14/2025 9:45 AM EDT Office Visit [facility] 230 [place] [address] documented as of this encounter Goals Goal [...] documented as of this encounter Care Teams Paraprofessional Aide Teacher Relationship Specialty Start Date End Date Mackenzie Estrada MD [address] [place] [address] PCP - General Family Medicine 07/10/20 Casper Magaña, JENNIFER 505 [place] [address] Registered Nurse Family Medicine 01/18/25 01/18/25 Ruth Ann Price 02/19/25 02/19/25 Ruth Ann Price 02/19/25 02/28/25 Hemalatha Pretty Data ManagerIron Miner Blasting 01/02/25 documented as of this encounter
--- OUTSIDE RECORDS SUMMARY | 2025-03-28 10:33 | XMS_ITS | Encounter Summary ---
Author Organization [employer] Address 75 [facility] 7t [place] [address] Care Team Providers Care Prepress Operator Name Role Phone Mackenzie Estrada MD Primary Care Provider [phone] Casper Magaña RN Unavailable [phone] Ruth Ann Price Unavailable Unavailable Ruth Ann Price Unavailable Reason for Visit * Reason Comments Med Refill Encounter Details Date Type Department Care Team ([facility] st Contact Info) Description 08/26/2023 Refill [facility] 230 [place] [address] Sisi Kennedy FNP 505 [place] [address] Viral upper respiratory tract infection Social History [...] Description 05/14/2025 9:45 AM EDT Office Visit [facility] 230 [place] [address] documented as of this encounter Goals Goal Patient Goal Type Associated Problems Recent Progress Patient-Stated? Author Quit using tobacco (cigarettes, smokeless, etc) Tobacco Use No Corey Lin, Bailey documented as of this encounter Visit Diagnoses Diagnosis Viral upper respiratory tract infection Acute upper respiratory infections of unspecified site documented in this encounter Care Teams Prepress Operator Relationship Specialty Start Date End Date Mackenzie Estrada MD 230 [place] [address] PCP - General Family Medicine 07/10/20 Casper Magaña, JENNIFER [address] [place] [address] Registered Nurse Family Medicine 01/18/25 01/18/25 Ruth Ann Price 02/19/25 02/19/25 Ruth Ann Price 02/19/25 02/28/25 Hemalatha Pretty Range EcologistHall Clerk 01/02/25 documented as of this encounter
--- OUTSIDE RECORDS SUMMARY | 2025-03-28 10:33 | XMS_ITS | Encounter Summary ---
Author Organization [employer] Address 75 [facility] 7t [place] [address] Care Team Providers Care Pharmacy Technician Assistant Name Role Phone Mackenzie Estrada MD Primary Care Provider [phone] Casper Magaña RN Unavailable [phone] Ruth Ann Price Unavailable Unavailable Ruth Ann Price Unavailable Reason for Visit * Reason Comments Med Refill Encounter Details Date Type Department Care Team ([facility] st Contact Info) Description 07/28/[address] [facility] [address] [place] [address] Mackenzie Estrada MD 230 [place], [place] [phone] Pain in both hands Social History Tobacco [...] 05/14/2025 9:45 AM EDT Office Visit [facility] [address] [place] [address] documented as of this encounter Visit Diagnoses Diagnosis Pain in both hands documented in this encounter Care Teams Pharmacy Technician Assistant Relationship Specialty Start Date End Date Mackenzie Estrada MD 230 [place] [address] PCP - General Family Medicine 07/10/20 Casper Magaña RN [address] [place] [address] Registered Nurse Family Medicine 01/18/25 01/18/25 Ruth Ann Price 02/19/25 02/19/25 Ruth Ann Price 02/19/25 02/28/25 Hemalatha Pretty Children'S CounselorTest Engineer Nuclear Equipment 01/02/25 documented as of this encounter
--- OUTSIDE RECORDS SUMMARY | 2025-03-28 10:33 | XMS_ITS | Encounter Summary ---
Author Organization [employer] Address 75 [facility] 7t [place] [address] Care Team Providers Care Account Manager Relief Name Role Phone Mackenzie Estrada MD Primary Care Provider [phone] Casper Magaña RN Unavailable [phone] Ruth Ann Price Unavailable Unavailable Ruth Ann Price Unavailable Reason for Visit * Reason Comments Med Refill Encounter Details Date Type Department Care Team ([facility] st Contact Info) Description 07/21/[address] [facility] 230 [place] [address] Mark Yang MD 230 [place] [address] Pain in both hands Social History Tobacco [...] 05/14/2025 9:45 AM EDT Office Visit [facility] 230 [place] [address] documented as of this encounter Goals Goal Patient Goal Type Associated Problems Recent Progress Patient-Stated? Author Quit using tobacco (cigarettes, smokeless, etc) Tobacco Use Corey Cornell, Bailey documented as of this encounter Visit Diagnoses Diagnosis Pain in both hands documented in this encounter Care Teams Account Manager Relief Relationship Specialty Start Date End Date Mackenzie Estrada MD [address] [place] [address] PCP - General Family Medicine 07/10/20 Casper Magaña, JENNIFER [address] [place] [address] Registered Nurse Family Medicine 01/18/25 01/18/25 Ruth Ann Price 02/19/25 02/19/25 Ruth Ann Price 02/19/25 02/28/25 Hemalatha Pretty Railroad Car CleanerLoss Prevention Guard 01/02/25 documented as of this encounter
--- OUTSIDE RECORDS SUMMARY | 2025-03-28 10:33 | XMS_ITS | Encounter Summary ---
Author Organization [employer] Address [address] [facility] 7t [place] [address] Care Team Providers Care Bean Snapper Name Role Phone Mackenzie Estrada MD Primary Care Provider [phone] Casper Magaña RN Unavailable [phone] Ruth Ann Price Unavailable Unavailable Ruth Ann Price Unavailable Reason for Visit * Reason Onset Date Comments Appointment Request 08/16/2023 Encounter Details Date Type Department Care Team ([facility] Contact Info) Description 08/16/2023 Telephone [facility] 230 [place] [address] Mackenzie Estrada MD 230 [place] [address] Appointment Request Social History Tobacco Use Types [...] be seen today. Please contact pt @ [phone] East Timorese Speaker documented in this encounter Plan of Treatment Upcoming Encounters Date Type Department Care Team ([facility] st Contact Info) Description 05/14/2025 9:45 AM EDT Office Visit [facility] [address] [place] [address] documented as of this encounter Goals Goal Patient Goal Type Associated Problems Recent Progress Patient-Stated? Author Quit using tobacco (cigarettes, smokeless, etc) Tobacco Use No Corey Lin, PharmD documented as of this encounter Visit Diagnoses Not on filedocumented in this encounter Care Teams Bean Snapper Relationship Specialty Start Date End Date Mackenzie Estrada MD 230 [place] [address] PCP - General Family Medicine 07/10/20 Casper Magaña, JENNIFER [address] [place] [address] Registered Nurse Family Medicine 01/18/25 01/18/25 Ruth Ann Price 02/19/25 02/19/25 Ruth Ann Price 02/19/25 02/28/25 Hemalatha Pretty College And Career CounselorAssembler Liquid Center 01/02/25 documented as of this encounter
--- OUTSIDE RECORDS SUMMARY | 2025-03-28 10:33 | XMS_ITS | Encounter Summary ---
Author Organization [employer] Address 75 [facility] 7t [place] [address] Care Team Providers Care Alpaca Farmer Name Role Phone Mackenzie Estrada MD Primary Care Provider [phone] Casper Magaña RN Unavailable [phone] Ruth Ann Price Unavailable Unavailable Ruth Ann Price Unavailable Reason for Visit * Reason Onset Date Comments Triage 11/10/2022 Encounter Details Date Type Department Care Team ([facility] st Contact Info) Description 11/10/2022 Telephone [facility] 230 [place] [address] Mackenzie Estrada MD [address] [place] [address] Triage Social History Tobacco Use Types Packs/Day [...] - 11/11/2022 11:10 AM EDT TC to [phone] via [employer] interpreters in regards to below message. Pt reports she went to [facility] since [facility] did not return her call. RN informed pt triage nurses attempted to call pt x2 however pt did not answer. RN reviewed [facility] ED note and pt presented to ED [...] however she has not been able to cone picker the nystatin medication because [facility] did not have it. RN asked if [facility] informed the pt they were going to order it however pt was not sure. RN placed pt on hold and called [facility] pharmacy who reports it is supposed to be arriving in store today and pt should call around 3pm to inquire if it was received and ready for cone picker. Pt verbalized understanding. RN advised pt if her rash does not resolve with medication and her pain does not resolve to call [facility] to schedule an appt for further evaluation. Pt verbalized understanding. Pt to F/U PRN. RN has printed ED note and placed in scan bin * Telephone Encounter - Chika Ingram LPN - 11/10/2022 2:30 PM EDT Triage call returned to patient with [employer] clinic office coordinator [phone] to listed number x 2 no answer. Left message to return call to [phone]. Team Nurses tasked to follow with patient [...] Office Visit [facility] [address] [place] [address] documented as of this encounter Visit Diagnoses Not on filedocumented in this encounter Care Teams Alpaca Farmer Relationship Specialty Start Date End Date Mackenzie Estrada MD [address] [place] [address] PCP - General Family Medicine 07/10/20 Casper Magaña, RN [address] [place] [address] Registered Nurse Family Medicine 01/18/25 01/18/25 Ruth Ann Price 02/19/25 02/19/25 Ruth Ann Price 02/19/25 02/28/25 Hemalatha Pretty Casino HostRoad Boss 01/02/25 documented as of this encounter
--- OUTSIDE RECORDS SUMMARY | 2025-03-28 10:33 | XMS_ITS | Encounter Summary ---
Author Organization [employer] Address [address] [facility] [address] 7t [place] [address] Care Team Providers Care Food Packer Name Role Phone Mackenzie Estrada MD Primary Care Provider [phone] Casper Magaña RN Unavailable [phone] Ruth Ann Price Unavailable Unavailable Ruth Ann Price Unavailable Reason for Visit * Reason Comments Med Refill Encounter Details Date Type Department Care Team ([facility] Contact Info) Description 09/22/[address] [facility] [address] [place] [address] Sarika Palacios ANP 230 [place] [address] Tinea pedis of both feet Social History [...] Upcoming Encounters Date Type Department Care Team ([facility] Contact Info) Description 05/14/2025 9:45 AM EDT Office Visit [facility] [address] [place] [address] documented as of this encounter Visit Diagnoses Diagnosis Tinea pedis of both feet documented in this encounter Care Teams Food Packer Relationship Specialty Start Date End Date Mackenzie Estrada MD 230 [place] [address] PCP - General Family Medicine 07/10/20 Casper Magaña RN [address] [place] [address] Registered Nurse Family Medicine 01/18/25 01/18/25 Ruth Ann Price 02/19/25 02/19/25 Ruth Ann Price 02/19/25 02/28/25 Hemalatha Pretty Fats And Oils LoaderInfectious Diseases Physician 01/02/25 documented as of this encounter
--- OUTSIDE RECORDS SUMMARY | 2025-03-28 10:33 | XMS_ITS | Encounter Summary ---
Author Organization [employer] Address 75 [facility] 7t [place] [address] Care Team Providers Care Keno Dealer Name Role Phone Mackenzie Estrada MD Primary Care Provider [phone] Casper Magaña RN Unavailable [phone] Ruth Ann Price Unavailable Unavailable Ruth Ann Price Unavailable Reason for Visit * Reason Onset Date Comments Error 08/16/2023 Encounter Details Date Type Department Care Team ([facility] st Contact Info) Description 08/16/2023 Telephone [facility] 230 [place] [address] Mackenzie Estrada MD 230 [place] [address] Error Social History Tobacco Use Types Packs/Day [...] 05/14/2025 9:45 AM EDT Office Visit [facility] [address] [place] [address] documented as of this encounter Goals Goal Patient Goal Type Associated Problems Recent Progress Patient-Stated? Author Quit using tobacco (cigarettes, smokeless, etc) Tobacco Use Corey Cornell, Bailey documented as of this encounter Visit Diagnoses Not on filedocumented in this encounter Care Teams Keno Dealer Relationship Specialty Start Date End Date Mackenzie Estrada MD [address] [place] [address] PCP - General Family Medicine 07/10/20 Casper Magaña, JENNIFER [address] [place] [address] Registered Nurse Family Medicine 01/18/25 01/18/25 Ruth Ann Price 02/19/25 02/19/25 Ruth Ann Price 02/19/25 02/28/25 Hemalatha Pretty Enrollment CoordinatorInspector Experimental Assembly 01/02/25 documented as of this encounter
--- OUTSIDE RECORDS SUMMARY | 2025-03-28 10:33 | XMS_ITS | Encounter Summary ---
Author Organization [employer] Address 75 [facility] 7t [place] [address] Care Team Providers Care Cold Rolling Supervisor Name Role Phone Mackenzie Estrada MD Primary Care Provider [phone] Casper Magaña RN Unavailable [phone] Ruth Ann Price Unavailable Unavailable Ruth Ann Price Unavailable Reason for Visit * Reason Comments Med Refill Encounter Details Date Type Department Care Team ([facility] Contact Info) Description 08/25/2022 Refill [facility] 230 [place], [place] [phone] Mackenzie Estrada MD 230 [place], [place] [phone] Pain in both hands Social History Tobacco [...] Upcoming Encounters Date Type Department Care Team ([facility] Contact Info) Description 05/14/2025 9:45 AM EDT Office Visit [facility] [address] [place] [address] documented as of this encounter Visit Diagnoses Diagnosis Pain in both hands documented in this encounter Care Teams Cold Rolling Supervisor Relationship Specialty Start Date End Date Mackenzie Estrada MD [address] [place] [address] PCP - General Family Medicine 07/10/20 Casper Magaña, JENNIFER 505 [facility] [place] [address] Registered Nurse Family Medicine 01/18/25 01/18/25 Ruth Ann Price 02/19/25 02/19/25 Ruth Ann Price 02/19/25 02/28/25 Hemalatha Pretty Db2 DeveloperCommodities Requirements Analyst 01/02/25 documented as of this encounter
--- OUTSIDE RECORDS SUMMARY | 2025-03-28 10:33 | XMS_ITS | Encounter Summary ---
Author Organization [employer] Address [address] 7[address] [place] [address] Care Team Providers Care Parking Cashier Name Role Phone Mackenzie Estrada MD Primary Care Provider [phone] Casper Magaña RN Unavailable [phone] Ruth Ann Price Unavailable Unavailable Ruth Ann Price Unavailable Encounter Details Date Type Department Care Team (Late st Contact Info) Description 05/10/2024 Orders Only [facility] MEDICINE [address] [place] [address] Mackenzie Estrada MD [address] [place], [place] [id number] Social History Tobacco Use Types Packs/Day Years [...] Description 05/14/2025 9:45 AM EDT Office Visit [facility] MEDICINE [address] [place] [address] documented as of this encounter Goals Goal [...] documented as of this encounter Care Teams Parking Cashier Relationship Specialty Start Date End Date Mackenzie Estrada MD [address] [place] [address] PCP - General Family Medicine 07/10/20 Casper Magaña, JENNIFER [address] [place] [address] Registered Nurse Family Medicine 01/18/25 01/18/25 Ruth Ann Price 02/19/25 02/19/25 Ruth Ann Price 02/19/25 02/28/25 Hemalatha Pretty Farm OperatorFactory Helper 01/02/25 documented as of this encounter
--- OUTSIDE RECORDS SUMMARY | 2025-03-28 10:33 | XMS_ITS | Encounter Summary ---
Author Organization [employer] Address [address] [facility] 7t [place] [address] Care Team Providers Care Cementer Helper Name Role Phone Mackenzie Estrada MD Primary Care Provider [phone] Casper Magaña RN Unavailable [phone] Ruth Ann Price Unavailable Unavailable Ruth Ann Price Unavailable Reason for Visit * Reason Comments Med Refill Encounter Details Date Type Department Care Team ([facility] st Contact Info) Description 07/27/2023 Refill [facility] MEDICINE [address] [place] [address] Mark Yang MD [address] [place] [address] Pain in both hands Social History Tobacco [...] Description 05/14/2025 9:45 AM EDT Office Visit [facility] MEDICINE [address] [place] [address] documented as of this encounter Goals Goal Patient Goal Type Associated Problems Recent Progress Patient-Stated? Author Quit using tobacco (cigarettes, smokeless, etc) Tobacco Use Corey Cornell, Bailey documented as of this encounter Visit Diagnoses Diagnosis Pain in both hands documented in this encounter Care Teams Cementer Helper Relationship Specialty Start Date End Date Mackenzie Estrada MD [address] [place] [address] PCP - General Family Medicine 07/10/20 Casper Magaña, JENNIFER [address] [place] [address] Registered Nurse Family Medicine 01/18/25 01/18/25 Ruth Ann Price 02/19/25 02/19/25 Ruth Ann Price 02/19/25 02/28/25 Hemalatha Pretty Oncology Transplant Network ManagerSulfonation Equipment Operator 01/02/25 documented as of this encounter
--- OUTSIDE RECORDS SUMMARY | 2025-03-28 10:33 | XMS_ITS | Encounter Summary ---
Author Organization [employer] Address [address] [facility] 7t [place] [address] Care Team Providers Care Yard Hand Name Role Phone Mackenzie Estrada MD Primary Care Provider [phone] Casper Magaña RN Unavailable [phone] Ruth Ann Price Unavailable Unavailable Ruth Ann Price Unavailable Reason for Visit * Reason Comments Med Refill Encounter Details Date Type Department Care Team ([facility] st Contact Info) Description 07/26/2023 Refill [facility] MEDICINE [address] [place] [address] Mark Yang MD [address] [place] [address] Pain in both hands Social History Tobacco [...] SYSTEM [facility] MEDICINE [address] [place] [address] documented as of this encounter Goals Goal Patient Goal Type Associated Problems Recent Progress Patient-Stated? Author Quit using tobacco (cigarettes, smokeless, etc) Tobacco Use Corey Cornell, Bailey documented as of this encounter Visit Diagnoses Diagnosis Pain in both hands documented in this encounter Care Teams Yard Hand Relationship Specialty Start Date End Date Mackenzie Estrada MD [address] [place] [address] PCP - General Family Medicine 07/10/20 Casper Magaña, JENNIFER [address] [place] [address] Registered Nurse Family Medicine 01/18/25 01/18/25 Ruth Ann Price 02/19/25 02/19/25 Ruth Ann Price 02/19/25 02/28/25 Hemalatha Pretty Photo Mask Pattern GeneratorDirect Marketing Representative 01/02/25 documented as of this encounter
--- OUTSIDE RECORDS SUMMARY | 2025-03-28 10:33 | XMS_ITS | Encounter Summary ---
Author Organization [employer] Address [address] [facility] 7t [place] [address] Care Team Providers Care Opinion Polls Survey Worker Name Role Phone Mackenzie Estrada MD Primary Care Provider [phone] Reason for Visit * Reason Comments Med Refill Encounter Details Date Type Department Care Team (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
--- OUTSIDE RECORDS SUMMARY | 2025-03-28 10:33 | XMS_ITS | Clinical Summary ---
Author Organization [facility] Address [address] [place] [address] Support Name Relationship Address Phone Brayden Hernandez Emergency Contact [address] [place] [address] Care Team Providers Care Blind Installer Name Role Phone Abdullahi Lizarraga MD Primary Care Provider [phone] Allergies Active Allergy Reactions Criticality Noted Date [...] age to complete this topic Care Teams Blind Installer Relationship Specialty Start Date End Date Abdullahi Lizarraga MD [address] [place] [address] PCP - General Nephrology 03/10/18
[2025-03-28 10:44] VITALS: BP 142/73; PULSE 79; RESP 20; TEMP 36.6; O2SAT 97
== END 2025-03-28 10:44 | disposition home or self-care (01) ==
PROVIDERS: Emergency Provider Emergency Medicine; PCP General Practice
DX: M54.12 Radiculopathy, cervical region (principal); M79.601 Pain in right arm; M54.2 Cervicalgia; Z79.899 Other long term (current) drug therapy
CPT/HCPCS: 96372; 99283; 99284; J2919

== ENCOUNTER 2025-04-04 10:07 | Outpatient (REF) | payer MEDICAID, SELFPAY ==
--- OUTSIDE RECORDS SUMMARY | 2025-04-03 11:15 | XMS_ITS | Encounter Summary ---
Author Organization [employer] Address [address] [facility] 7t [place] [address] Care Team Providers Care Neurophysiological Technician Name Role Phone Mackenzie Estrada MD Primary Care Provider [phone] Ruth Ann Price Unavailable Reason for Visit * Reason Comments hdf Encounter Details Date Type Department Care Team ([facility] st Contact Info) Description 04/03/2025 11:15 AM EDT Office Visit [facility] MEDICINE [address] [place] [address] Sisi Kennedy FNP [address] [place] [address] Nodule of skin of both upper extremities (Primary Dx) Social History Tobacco Use Types [...] Answer Date Recorded Patient Health Questionnaire-9 Score 6 04/03/2025 Patient Health Questionnaire-9 Score 6 04/03/2025 Last PHQ-9: Questionnaire Data Not on file 0 04/03/2025 Housing Stability Answer Date Recorded What is [...] Answer Date Recorded Patient Health Questionnaire-2 Score 3 04/03/2025 Internet Access Answer Date Recorded Internet Access [...] Sign Reading Time Taken Comments Blood Pressure 130/62 04/03/2025 11:38 AM EDT Pulse 67 04/03/2025 11:38 AM EDT Temperature 36.9 C (98.5 F) 04/03/2025 11:38 AM EDT Respiratory Rate 20 04/03/2025 11:38 AM EDT Oxygen Saturation 97% 04/03/2025 11:38 AM EDT Inhaled Oxygen Concentration - - Weight 85.8 kg (189 lb 3.2 oz) 04/03/2025 11:38 AM EDT Height 157.5 cm (5' 2 ) 04/03/2025 11:38 AM EDT Body Mass Index 34.61 04/03/2025 11:38 AM EDT documented in this encounter Functional Status * Over the past 2 weeks, how often have you been bothered by any of the following problems? Question Answer Date of Assessment Author Patient Health Questionnaire -2 Score 3 04/03/2025 11:40 AM EDT Ashli Moss MA * Little interest or pleasure in doing things Answer Date of Assessment Author Nearly every day 04/03/2025 11:40 AM Ashli Machado MA * Feeling down, depressed, or hopeless Answer Date of Assessment Author Not at all 04/03/2025 11:40 AM Ashli Machado MA * Trouble falling or staying asleep, or sleeping too much Answer Date of Assessment Author Several days 04/03/2025 11:40 AM Ashli Machado MA * Feeling tired or having little energy Answer Date of Assessment Author Several days 04/03/2025 11:40 AM Ashli Machado MA * Poor appetite or overeating Answer Date of Assessment Author Not at all 04/03/2025 11:40 AM Ashli Machado MA * Feeling bad about yourself - or that you are a failure or have let yourself or your family down Answer Date of Assessment Author Not at all 04/03/2025 11:40 AM Ashli Machado MA * Trouble concentrating on things, such as reading the newspaper or watching television Answer Date of Assessment Author Several days 04/03/2025 11:40 AM Ashli Machado MA * Moving or speaking so slowly that other people could have noticed? Or the opposite - being so fidgety or restless that you have been moving around a lot more than usual. Answer Date of Assessment Author Not at all 04/03/2025 11:40 AM Ashli Machado MA * Thoughts that you would be better off or hurting yourself in some way Answer Date of Assessment Author Not at all 04/03/2025 11:40 AM Ashli Machado MA * Patient Health Questionnaire-9 Score Answer Date of Assessment Author 6 04/03/2025 11:40 AM Ashli Machado MA * How difficult have these problems made it for you to do your work, take care of things at home, or get along with other people? Answer Date of Assessment Author Somewhat difficult 04/03/2025 11:40 AM Ashli Henderson MA * Over the last 2 weeks, how often have you been bothered by any of the following problems? Question Answer Date of Assessment Author Feeling nervous, anxious, or on edge 0 04/03/2025 11:41 AM EDT Ashli Moss MA Not being able to stop or co ntrol worrying 0 04/03/2025 11:41 AM EDT Ashli Moss MA Worrying too much about diff erent things 1 04/03/2025 11:41 AM EDT Ashli Moss MA Trouble relaxing 0 04/03/2025 11:41 AM EDT Ashli Moss MA Being so restless that it is hard to sit still 1 04/03/2025 11:41 AM EDT Ashli Moss MA Becoming easily annoyed or irritable 0 04/03/2025 11:41 AM EDT Ashli Moss MA Feeling afraid as if somethi ng awful might happen 1 04/03/2025 11:41 AM EDT Ashli Moss MA CESAR-7 Total Score 3 04/03/2025 11:41 AM EDT Ashli Moss MA documented as of this encounter Patient Instructions * Patient Instructions* FARHEEN Ng - 04/03/2025 11:15 AM EDT Mammogram Appointment 2 [facility], room 202 May 15 at 11:45am documented in this encounter Progress Notes * FARHEEN Ng - 04/03/2025 11:15 AM EDT Subjective: Ginette Lacy is a 49 y.o. female w/ PMH rheumatoid arthritis, lumbosacral stenosis, DVT, GERD, Hodgkin lymphoma, migraines, NSTEMI, and chronic low back pain, who presents to the office for a sick visit. HPI She was evaluated 03/29/25: [facility] visit for cervical radiculopathy. Received dose of solu-medrol and flexeril. Unable to use NSAIDs d/t AC. She is also requesting assistance with scheduling mammo - provider called and booked appt for 05/15/25 for mammo. Appt details provided to pt. Today, reports that her primary concerns are nodules on elbows. She has a history of bilateral elbow nodules from RA that have become infected and caused cellulitis in the past. Afebrile on exam today. No F/C/N/V/D. Currently describes tenderness of nodules bilat elbows, but no surrounding erythemaor edema. Shared decision making to tx with PO abx and reviewed strict ED precautions. Reviewed meduse and SE. Problem List[1] Review of Systems Constitutional: Negative for chills and fever. Respiratory: Negative for cough and wheezing. Cardiovascular: Negative for chest pain and palpitations. Skin: Positive for rash. Skin nodules Visit Vitals BP 130/62 (BP Location: Left arm, Patient Position: Sitting, BP Cuff Size: Large adult) Pulse 67 Temp 98.5 ??F (36.9 ??C) (Oral) Resp 20 Ht 5' 2 (1.575 m) Wt 189 lb 3.2 oz (85.8 kg) SpO2 97% BMI 34.61 kg/m?? Smoking Status Former BSA 1.94 m?? Physical Exam Constitutional: Appearance: Normal appearance. HENT: Head: Atraumatic. Right Ear: External ear normal. Left Ear: External ear normal. Cardiovascular: Rate and Rhythm: Normal rate. Pulmonary: Effort: Pulmonary effort is normal. Skin: Comments: 1-2cm nodules bilat elbows, tender to palpation. Mild pink in color but no significant surrounding erythema or edema. Neurological: Mental Status: She is alert and oriented to person, place, and time. Psychiatric: Mood and Affect: Mood normal. Behavior: Behavior normal. Problem List Items Addressed This Visit Visit Diagnoses Nodule of skin of both upper extremities - Primary Ddx: rheumatoid nodules vs cellulitis vs other - Plan to proceed with course of PO abx. Strict ED precautions reviewed Relevant Medications doxycycline (Vibra-Tabs) 100 MG tablet cephalexin (Keflex) 500 MG capsule Other Relevant Orders CBC auto differential Follow up: routine care with PCP, sooner as needed [1] Patient Active Problem List Diagnosis Acute deep vein thrombosis (DVT) of tibial vein of right lower extremity (CMS/HCC) Anxiety Cobalamin deficiency Constipation Acute deep vein thrombosis (DVT) of brachial vein of right upper extremity (CMS/HCC) Depressive disorder Fatigue 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 Gastroesophageal reflux disease Goiter Hand pain History of 2019 novel coronavirus disease (COVID-19) Nodular sclerosis Hodgkin lymphoma of lymph nodes of multiple regions (CMS/HCC) Lumbosacral stenosis Mediastinal lymphadenopathy Rheumatoid arthritis involving multiple sites (CMS/HCC) Chronic [...] adult 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 DVT (deep vein thrombosis) 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 Personal history of Hodgkin lymphoma Axillary lymphadenopathy 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 (CMS/HCC) 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 (CMS/HCC) Inflammatory arthritis Periodontal disease Epicondylitis elbow, medial, left NSTEMI (non-ST elevated myocardial infarction) (CMS/HCC) Right hip pain Pain and swelling of left wrist Long-term current use of opiate analgesic Soft tissue lesion of elbow region Cervical paraspinal muscle spasm documented in this encounter Plan of Treatment Upcoming Encounters Date Type Department Care Team (Late st Contact Info) Description 05/14/2025 9:45 AM EDT Office Visit [facility] MEDICINE [address] [place] [address] Scheduled Orders Name Type Priority Associated Diagnoses Orde r Schedule CBC auto differential Lab Routine Nodule of skin of both upper extremities Expected: 04/03/2025 (Approximate), Expires: 04/03/2026 documented as of this encounter Goals Goal Patient Goal Type Associated Problems Recent Progress Patient-Stated? Author Quit using tobacco (cigarettes, smokeless, etc) Tobacco Use No Corey Lin, KelechiD documented as of this encounter Visit Diagnoses Diagnosis Nodule of skin of both upper extremities- Primary documented in this encounter Additional Health Concerns Assessment Noted Time PHQ-9 Depression Total Score: 6 04/03/20 25 11:40 AM EDT documented as of this encounter Care Teams Neurophysiological Technician Relationship Specialty Start Date End Date Mackenzie Estrada MD [address] [place] [address] PCP - General Family Medicine 07/10/20 Ruth Ann Price 03/29/25 04/03/25 Hemalatha Pretty Aitchbone BreakerEtl Software Engineer 01/02/25 documented as of this encounter
--- NOTE | ~2025-04-04 | XR_ITS ---
EXAMINATION: XR ELBOW, LEFT CLINICAL INFORMATION: L elbow swelling, ?joint infection COMPARISON: January 17, 2025. TECHNIQUE: AP, lateral, and oblique views of the left elbow. FINDINGS: No acute cortical disruption or malalignment. No lytic or blastic lesions. No joint effusion. No subcutaneous emphysema. No metallic or radiopaque foreign body. XR/XR elbow LT min 3V IMPRESSION: Normal x-ray, left elbow. Electronically signed by: Madan Tijerina MD 04/04/2025 11:09 AM EDT
--- OUTSIDE RECORDS SUMMARY | 2025-04-04 11:20 | XMS_ITS | Encounter Summary ---
Author Organization [employer] Address [address] [facility] [address] [place] [address] Care Team Providers Care Car Lot Attendant Name Role Phone Mackenzie Estrada MD Primary Care Provider [phone] Casper Magaña RN Unavailable [phone] Ruth Ann Price Unavailable Unavailable Ruth Ann Price Unavailable Ruth Ann Price Unavailable Encounter Details Date Type Department Care Team (Late st Contact Info) Description 12/13/2023 Orders Only [facility] MEDICINE [address] [place] [address] Mackenzie Estrada MD [address] [place], [place] [phone] Pain in both hands Social History Tobacco [...] Office Visit [facility] MEDICINE [address] [place] [address] documented as of this encounter Goals Goal Patient Goal Type Associated Problems Recent Progress Patient-Stated? Author Quit using tobacco (cigarettes, smokeless, etc) Tobacco Use Corey Cornell, KelechiD documented as of this encounter Visit Diagnoses Diagnosis Pain in both hands documented in this encounter Care Teams Car Lot Attendant Relationship Specialty Start Date End Date Mackenzie Estrada MD [address] [place] [address] PCP - General Family Medicine 07/10/20 Casper Magaña, JENNIFER [address] [place] [address] Registered Nurse Family Medicine 01/18/25 01/18/25 Ruth Ann Price 02/19/25 02/19/25 Ruth Ann Price 02/19/25 02/28/25 Ruth Ann Price 03/29/25 04/03/25 Hemalatha Pretty Cargo MateOperations Label Clerk 01/02/25 documented as of this encounter
--- OUTSIDE RECORDS SUMMARY | 2025-04-04 11:20 | XMS_ITS | Encounter Summary ---
Author Organization [employer] Address [address] [facility] 7t [place] [address] Care Team Providers Care Traveling Representative Name Role Phone Mackenzie Estrada MD Primary Care Provider [phone] Casper Magaña RN Unavailable [phone] Ruth Ann Price Unavailable Unavailable Ruth Ann Price Unavailable Ruth Ann Price Unavailable Reason for Visit * Reason Comments Med Refill Encounter Details Date Type Department Care Team (Late st Contact Info) Description 08/19/[address] [facility] MEDICINE [address] [place] [address] Mackenzie Estrada MD [address] [place] [address] Social History Tobacco Use Types Packs/Day Years [...] 05/14/2025 9:45 AM EDT Office Visit [facility] MEDICINE [address] [place] [address] documented as of this encounter Goals Goal Patient Goal Type Associated Problems Recent Progress Patient-Stated? Author Quit using tobacco (cigarettes, smokeless, etc) Tobacco Use Corey Cornell, PharmD documented as of this encounter Visit Diagnoses Not on filedocumented in this encounter Additional Health Concerns Assessment Noted Time PHQ-9 Depression Total Score: 2 04/30/20 24 10:41 AM EDT documented as of this encounter Care Teams Traveling Representative Relationship Specialty Start Date End Date Mackenzie Estrada MD [address] [place] [address] PCP - General Family Medicine 07/10/20 Casper Magaña RN [address] [place] [address] Registered Nurse Family Medicine 01/18/25 01/18/25 Ruth Ann Price 02/19/25 02/19/25 Ruth Ann Price 02/19/25 02/28/25 Ruth Ann Price 03/29/25 04/03/25 Hemalatha Pretty Cream GathererRoss Lift Operator 01/02/25 documented as of this encounter
--- OUTSIDE RECORDS SUMMARY | 2025-04-04 11:20 | XMS_ITS | Clinical Summary ---
Author Organization [employer] Address [address] [facility] [address] [place] [address] Care Team Providers Care Display Mechanic Name Role Phone Mackenzie Estrada MD Primary Care Provider [phone] Allergies Active Allergy Reactions Criticality Noted Date Comments Minden (Diagnostic) 05/23/2020 Minden Oil Anaphylaxis High 07/19/2022 Morphine 06/02/2015 Other [...] 05/26/20 22 Active Sharps Container (GUARDIAN Sharps News Producer) misc 06/15/20 22 Active Vitamin D High Potency 25 MCG (1000 UT) capsule Take 25 mcg by mouth in the morning. 12/11/19 23 Active beta carotene (vitamin A) 3 MG (72510 UT) capsule Take by mouth in the [...] MOUTH EVERY WEEK 02/24/20 24 Active Umeclidinium [place] (Incruse Ellipta) 62.5 MCG/ACT aerosol powderIndicati ons:Subacute cough INHALE 1 PUFF BY MOUTH EVERY DAY AT THE SAME TIME 1 each 11 04/23/20 Active FeroSul 325 (65 Fe) MG tablet [...] day. 90 tablet 3 07/03/20 24 Active sertraline (Zoloft) 50 MG tablet Take 1 tablet (50 mg) by mouth Once per day. 90 tablet 3 07/03/20 24 025 Active Additional Information Patient not taking.Reported on 03/29/2025 lidocaine (Lidoderm) 5 % patch APPLY 1 [...] MG tabletIndicati ons:NSTEMI (non-ST elevated myocardial infarction) ([facility]) Take 1 tablet (75 mg) by [...] 10 days. 20 tablet 01/25/20 25 Active Additional Information Patient not taking.Reported on 03/29/2025 Eliquis 5 MG tablet TAKE 1 TABLET [...] collapse of femoral head present on x-ray ([facility]) TAKE 1 TABLET BY MOUTH EVERY 6 HOURS NEEDED FOR SEVERE PAIN FOR UP TO 28 DAYS 112 tablet 03/21/20 25 025 Active doxycycline (Vibra-Tabs) 100 MG tabletIndicati ons:Nodule of skin of both upper extremities Take 1 tablet (100 mg) by mouth 2 times daily for 7 days. Take with a full glass of water and do not lie down for at least 30 minutes after. 14 tablet 04/03/20 25 025 Active cephalexin (Keflex) 500 MG capsuleIndicat ions:Nodule of skin of both upper extremities Take 1 capsule (500 mg) by mouth 4 times daily for 7 days. 28 capsule 04/03/20 25 025 Active ursodiol (Sushil) 250 MG tablet Take 1 tablet (250 mg) by mouth 2 times daily. 60 tablet 11 04/10/20 24 025 Discontinued dexAMETHasone (Decadron) 4 MG tablet TOME 1 TABLETA POR V A ORAL DOS VECES AL D A 11/26/19 25 025 Discontinued(O ther) oxyCODONE-acet aminophen (Percocet) 7.5-325 MG tabletIndicati ons:Osteonecro sis of hip with collapse of femoral head present on x-ray (CMS/HCC) Take 1 tablet by mouth every 6 (six) hours if needed for severe pain for up to 28 days. 112 tablet 02/22/20 25 025 Discontinued predniSONE (Deltasone) 20 MG tablet Take 1 tablet (20 mg) by mouth Once per day for 5 days. 5 tablet 03/06/20 25 025 econazole nitrate 1 % creamIndicatio ns:Seborrheic dermatitis Apply topically Once per day for 14 days. (Nose) 15 g 1 03/12/20 25 025 Active Problems Problem Noted Date Diagnosed Date Soft tissue lesion of elbow region 01/24/2025 Assessment & Plan (01/24/2025 2:42 PM EDT): They seem to be tophi lesions rheumatoid nodules, however evaluation for gout has been reportedly negative. Lesions get infected on and off over the years requiring hospitalizations or outpatient antibiotics. Patient should continue RA treatment with all source intelligence technician, avoid trauma to elbows. Cervical paraspinal muscle spasm 01/24/2025 Long-term current use of opiate analgesic 2024 Overview (12/12/2024): Medication: Percocet 7.5/325mg Q6H PRN Indication: Rheumatoid arthritis Last TRAY CASTING MACHINE OPERATOR Agreement: 06/12/24 Tier: II (Q3 months [...] 8:21 AM EST): Has Narcan at home TRAY CASTING MACHINE OPERATOR agreement UTD Seeing group pain visits for TRAY CASTING MACHINE OPERATOR Assessment & Plan (09/11/2024 5:03 PM EST): [...] factor 01/26/2024 Overview (08/14/2024): - Following with [facility] Rheum: Dr. Castro [...] to go back to her previous dose, TRAY CASTING MACHINE OPERATOR nurse informed about my plan, I [...] pt f w Dr. Corley, rheum at [facility] - Actemra infusions ( Tocilizumab) 8mg/kg every 4 weeks - methotrexate 25mg every week - Folic acid 1 mg every day -percocet 7.5/325 1 tab Q6 h -I called today her Electric Organ Inspector And Repairer # [phone] --got apt and requested transportation to [facility] RN -apt w all source intelligence technician in 2 days this Tuesday03/08/2025 at 1 h 40 at [address] [facility] [address] -start prednisone 20 mg daily for [...] thrombosis) 05/23/2020 Overview (09/28/2023): 01/2005 Right Subclavain snf current use of anticoagulant 0 Personal history of Hodgkin lymphoma 05/09/2020 Axillary lymphadenopathy 05/09/2020 Acute deep vein thrombosis ( DVT) of brachial vein of right upper extremity 03/07/2020 Lymphadenopathy, generalized 03/07/2020 Migraine without status migrainosus, not intract able 12/06/2017 Paresthesia and pain of left extremity 8 Gastroesophageal reflux disease 06/03/2017 Rheumatoid arthritis involving multiple sites Overview (03/12/2025): - Following with [facility] Rheumatology: Dr. Corley [...] PM EDT): Primarily managed by Rheum at [facility] Continue to take [...] not as effective -I spoke today with [facility] staff today ( Shahla) and confirmed they do have remdesivir which will be the best options for tx for this pt , ER at [facility] are expecting pt for evaluation. [...] week as per Rheumatology. Rx sent to [facility] and they will continue refill for [...] bowel movements 07/03/2022 09/28/2024 Arthritis, senescent 06/03/2017 02/28/2 025 Psychoactive substance use disorder 05/04/2012 09/28/2024 Encounters * This document contains information received from the source organization and may not represent a complete record from that organization. Date Type Department Care Team Description 04/03/2025 11:15 AM EDT Office Visit [facility] MED[facility]INE [address] [place] [phone] Sisi Kennedy FNP Nodule of skin of both upper extremities (Primary Dx) 04/03/2025 Patient Outreach [facility] [address] [place] [address] Mackenzie Estrada MD Care Coordination (Communication to patient assigned CP Coordinator ) 04/03/2025 Travel 04/02/[address] [address] Sisi Kennedy FNP CHART PREP 03/29/2025 Patient Outreach [facility] [address] [place] [address] Mackenzie Estrada MD Care Coordination ([facility] ED Follow Up) 03/29/2025 Patient Outreach [facility] [address] [place] [address] Mackenzie Estrada MD Care Coordination (CP Care Coordination Chart Review) 03/29/[address] [facility] [address] [place] [address] Mackenzie Estrada MD 03/18/[address] 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 [address] [place] [address] Livia Amos MD 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 ([facility]) 03/13/[address] [facility] [address] [place] [address] Mackenzie Estrada MD 03/12/2025 9:45 AM EDT Office Visit [address] [address] Sisi Kennedy FNP Rheumatoid arthritis involving multiple sites with positive rheumatoid factor ([facility]) (Primary Dx); Long-term current use of opiate analgesic; Seborrheic dermatitis 03/12/2025 Travel 03/06/2025 2:00 PM EDT Office Visit [facility] WALK-IN [address] [address] Livia Hooper MD Inflammatory arthritis (Primary Dx) 03/06/[address] [address] Mackenzie Estrada MD pt1 (PT-1 Request [id number] Pending . For pending submissions, please check the portal periodically for updates. ) 03/06/2025 Telephone [facility] [address] [place] [address] Livia Hooper MD 03/06/2025 Travel 03/05/[address] [address] Mackenzie Estrada MD Nurse Triage 02/28/2025 Patient Outreach [facility] [address] [place] [address] Mackenzie Estrada MD Care Coordination (CP/ Communication to pt assigned CP Coordinator) 02/21/[address] [address] Kaylene Samano RN 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 ([facility]) 02/21/[address] [address] Mackenzie Estrada MD Med Refill 02/19/2025 Patient Outreach [facility] [address] [place] [address] Mackenzie Estrada MD Care Coordination ([facility] ED /F/U) 02/19/2025 Patient Outreach [facility] [address] [place] [address] Mackenzie Estrada MD Care Coordination ([facility] Air Support Control Officer / Chart Review) 02/19/2025 Patient Outreach [address] [place] [address] Mackenzie Estrada MD 02/19/[address] [facility] [address] [place] [address] Mackenzie Estrada MD 02/18/[address] [facility] [address] [place] [address] Mackenzie Estrada MD 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 ([facility]/HCC) 02/18/2025 Orders Only GENERIC EXTERNAL DATA DEPARTMENT Provider, Generic External Data 02/14/[address] [facility] [address] [place] [address] Mackenzie Estrada MD 02/05/2025 Telephone [facility] [address] [place] [phone] Mackenzie Estrada MD ER Follow-up 02/04/2025 Orders Only GENERIC EXTERNAL DATA DEPARTMENT Provider, Generic External Data 02/01/[address] [facility] [address] [place] [address] Ebony Daigle MD 01/24/2025 12:15 PM EDT Office Visit [facility] [address] [place] [address] Ebony Daigle MD Soft tissue lesion of elbow region (Primary Dx); Cervical paraspinal muscle spasm; Screening mammogram, encounter for; Encounter for immunization 01/24/[address] [facility] [address] [place] [address] Ebony Daigle MD Rheumatoid arthritis involving multiple sites with positive rheumatoid factor ([facility]/HCC) 01/24/[address] [facility] [address] [place] [phone] Mackenzie Estrada MD Med Refill 01/24/[address] [facility] WALK-IN CENTER [address] [place] [address] Kat Yo MD 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 (CMS/HCC); Inflammatory arthritis 01/24/[address] [facility] [address] [place] [address] Kaylene Samano, JENNIFER 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 ([facility]) 01/24/2025 Travel 01/18/2025 Patient Outreach [address] [address] Mackenzie Estrada MD Care Coordination (C3- ER F/U Call) 01/18/2025 Patient Outreach [address] [address] Mackenzie Estrada MD 01/17/2025 Orders Only GENERIC EXTERNAL DATA DEPARTMENT Provider, Generic External Data 01/02/[address] [address] Mackenzie Estrada MD Care Coordination (ICP care plan) from Last 3 Months Immunizations Immunization Administration [...] Average Number of Drinks Not on file 05/30/2 025 How often do you have six [...] Mass Index 34.61 04/03/2025 11:38 AM EDT Plan of Treatment Upcoming Encounters Date Type Department Care Team (Late st Contact Info) Description 05/14/2025 9:45 AM EDT Office Visit [facility] [address] [place] [address] Health Maintenance Due Date Last Done Comments CT Colonography 1975 Dental Prophylaxis 1975 FIT DNA/Cologuard 1975 FIT 1975 FOBT 1975 Sigmoidoscopy 1975 Zoster Vaccines (1 of 2) 1995 Dental Oral Exam 07/30/2021 01/27/2021 Mammogram 10/10/2023 10/09/2021, 11/24/2018 Dental X-Ray: Full Mouth 01/29/2024 01/27/2021 Dental X-Ray: Bitewings 01/20/2025 01/20/20 24, 01/27/2021, 04/19/2016 COVID-19 Vaccine ( season) 2025 07/23/2021, 12/10/2020, 11/12/2020 Influenza Vaccine (#1) 2025 , 05/13/2021, 07/05/2018, Additional history exists SDOH Screening 09/10/2025 09/10/2024 Family Planning (PISQ) 09/28/2025 09/28/2024 Alcohol/Substance Use Screening 12/28/2025 12/28/2024 Disability Screening 12/28/2025 12/28/2024 Depression Screening 04/03/2026 04/03/2025, 04/03/20 Tobacco Screening 04/03/2026 04/03/2025 Lipid Panel 09/14/2026 09/14/2021 DTaP/Tdap/Td Vaccines (2 [...] Diagnosis Comments XR ELBOW 3+ VIEWS LEFT Urgent 10:14 AM EDT POCT GALLO-14 URINE DRUG SCREEN Routine 03/12/2025 10:28 AM EDT Rheumatoid arthritis involving multiple sites with positive rheumatoid factor ([facility]/HCC) Long-term current use of opiate analgesic URINALYSIS, [...] EDT XR HAND 3+ VIEWS RIGHT Routine 8:08 AM EDT CULTURE, URINE, ROUTINE Routine [...] EDT US VENOUS DUPLEX LE LT Routine 12:19 PM EDT XR ANKLE 3+ VIEWS LEFT Routine 12:11 PM EDT XR FOOT 3+ VIEWS LEFT Routine 01/17/2025 12:10 PM EDT XR ELBOW 3+ VIEWS LEFT Routine 12:08 PM EDT SED RATE BY MODIFIED [...] Results * XR Elbow 3+ Views Left (04/04/2025 10:14 AM EDT) Only the most recent of2 resultswithin the time period is included. Anatomical Region Laterality Modality Upper Extremities, Elbow Left Radiogr aphic Imaging 04/04/2025 10:1 4 AM EDT Narrative 04/04/2025 11:12 [place] [address] XRay Report Signed Patient: Ginette Arceo MR #: [id number] : 1975 Acct:[id number] Age/Sex: 49 / F ADM Date: 04/04/25 Loc: HO.HHCX Attending Dr: Marychuy Bonilla NP Ordering Physician: MARYCHUY BONILLA NP Date of Service: 04/04/25 Procedure(s): XR elbow LT min 3V Accession Number(s): [id number] cc: Mackenzie Estrada; MARYCHUY BONILLA NP Reason for Exam: L elbow swelling, ?joint infection EXAMINATION: XR ELBOW, LEFT CLINICAL INFORMATION: L elbow swelling, ?joint infection COMPARISON: January 17, 2025. TECHNIQUE: AP, lateral, and oblique views of the left elbow. FINDINGS: No acute cortical disruption or malalignment. No lytic or blastic lesions. No joint effusion. No subcutaneous emphysema. No metallic or radiopaque foreign body. XR/XR elbow LT min 3V IMPRESSION: Normal x-ray, left elbow. Electronically signed by: Madan Tijerina MD 04/04/2025 11:09 AM EDT RP Dictated By: Madan Nye MD Signed By: <Electronically signed by Madan Rose MD in OV> 04/04/25 110 DD/ 1014 TD/TT: 04/04/25 110 Auto Job Estimator: Procedure Note Donotuseinterpreter, Image - 04/04/[address] [address] XRay Report Signed Patient: Ginette ArceoMR #: [id number] : 1975Acct:[id number] Age/Sex: 49 / FADM Date: 04/04/25 Loc: HO.HHCX Attending Dr: Marychuy Bonilla NP Ordering Physician: MARYCHUY BONILLA NP Date of Service: 04/04/25 Procedure(s): XR elbow LT min 3V Accession Number(s): [id number] cc: Mackenzie Estrada; MARYCHUY BONILLA NP Reason for Exam: L elbow swelling, ?joint infection EXAMINATION: XR ELBOW, LEFT CLINICAL INFORMATION: L elbow swelling, ?joint infection COMPARISON: January 17, 2025. TECHNIQUE: AP, lateral, and oblique views of the left elbow. FINDINGS: No acute cortical disruption or malalignment. No lytic or blastic lesions. No joint effusion. No subcutaneous emphysema. No metallic or radiopaque foreign body. XR/XR elbow LT min 3V IMPRESSION: Normal x-ray, left elbow. Electronically signed by: Madan Tijerina MD 04/04/2025 11:09 AM EDT RP Dictated By: Madan Nye MD Signed By: <Electronically signed by Madan Rose MDin OV> 04/04/25 110 DD/ 1014 TD/TT: 04/04/25 110 Auto Job Estimator: Marychuy Bonilla ANP IMG XR PROCEDURES Final Result * (ABNORMAL) POCT GALLO-14 Urine Drug Screen [...] - 03/12/2025 10:28 AM EDT .UTOX cup Lot#[id number] Exp. 05/07/26 Internal Pass Control Sisi Kennedy RECREATION THERAPY DIRECTOR POINT OF CARE TEST ENTER/EDIT ORDERABLES Final Result * (ABNORMAL) Urinalysis, Complete, with Reflex to Culture (02/18/2025 10:44 AM EDT) Color Urine Yellow [facility] Appearance Urine Clear [facility] PH 6.0 5.0 - 9.0 [facility] Glucose Urine UA Negative Negative mg/dL [facility] Urine Blood Negative Negative [facility] Specific [place] - Urine 1.020 1.005 - 1.025 [facility] Urine Protein Negative Neg-Trace mg/dL [facility] Urine Ketones Negative Negative mg/dL [facility] Nitrite Urine Negative Negative [facility] Leukocyte Esterase Urine Small (1+)(A) Negative [facility] RBC Urine 0-2 0 - 2 /HPF [facility] Urine WBC 6-10(A) 0 - 5 /HPF [facility] Urine Squamous Epithelial Cell 11-20 0 - 2 /HPF [facility] Urine Bacteria Trace None Seen [facility] Hyaline Casts, Urine 0-2 0 - 2 /LPF [facility] 02/18/2025 10:4 4 AM EDT 02/18/2025 10:49 AM EDT [facility] - 02/18/2025 10:57 AM EDT [id number], Clean Catch us Generic External Data Provider LAB URINE ORDERAB LES Final Result Performing Organization Address City/State/[facility] Co de Phone Number [facility] [address] [place] [phone] * VASC US Lower Extremity Venous Duplex Bilateral (02/18/2025 9:50 AM EDT) 02/18/2025 9:50 AM EDT [facility] - 02/18/2025 10:27 AM EDT [address] [address] Ultrasound Report Signed Patient: Ginette Arceo MR #: [id number] : 1975 Acct:[id number] Age/Sex: 49 / F ADM Date: 02/18/25 Loc: .ED Attending Dr: Ordering Physician: Jana Mcdaniel Date of Service: 02/18/25 Procedure(s): US venous duplex LE BI Accession Number(s): [id number] cc: Mackenzie Estrada; Jana Mcdaniel EXAMINATION: US [...] Arian Mondragon MD 02/18/2025 10:24 AM EDT RP Dictated By: Arian Mondragon MD Signed By: <Electronically signed by Arian Mondragon MD in OV> 02/18/25 1024 DD/ 0950 TD/TT: 02/18/25 1010 Auto Job Estimator: Procedure Note Donotuseinterpreter, Image - 02/18/2025 [place] [address] Ultrasound Report Signed Patient: Ginette ArceoMR #: [id number] : 1975Acct:[id number] Age/Sex: 49 / FADM Date: 02/18/25 Loc: .ED Attending Dr: Ordering Physician: Jana Mcdaniel Date of Service: 02/18/25 Procedure(s): US venous duplex LE BI Accession Number(s): [id number] cc: Mackenzie Estrada; Jana Mcdaniel EXAMINATION: US [...] 02/18/25 1024 DD/ 0950 TD/TT: 02/18/25 1010 Auto Job Estimator: [facility] External Provider CV VASC ULAR PROCEDURES Final Result Performing Organization Address [facility] Co de Phone Number [facility] [address] [place] [phone] * High Sensitivity Troponin I (02/18/2025 8:49 AM EDT) Pathologist [facility] TROPONIN I HIGH SENSITIVITY <2.7 <3.5 - 17.0 ng/L [facility] Comment:The Shea high sens itivity Troponin-I results should beused in conjunction with other diagnostic information suchas ECG, clinical observations and information, and patientsymptoms to aid in the diagnosis of [place]. 02/18/2025 8:49 AM EDT 02/18/2025 8:54 AM EDT Generic External Data Provider LAB BLOOD ORDERAB LES Final Result Performing Organization Address [facility] Co de Phone Number [facility] [address] [place] [address] [phone] * SARS-CoV-2 RNA, Influenza A/B, and RSV RNA, Ql NAAT (02/18/2025 8:49 AM EDT) Pathologist [facility] Influenza A PCR NEGATIVE Negative [facility] Influenza B PCR NEGATIVE Negative [facility] Resp Syncy Virus RNA Qual PCR NEGATIVE Negative [facility] SARS COV2 PCR NEGATIVE Negative [facility] Comment:All test results mus t be [...] use by authorized laboratories.Testing performed on the [employer] GeneXpert utilizingreal-time RT-PCR.All SARS CoV2 and positive influenza A/B results arereported to [facility]. 02/18/2025 8:49 AM EDT 02/18/2025 8:54 AM EDT us Generic External Data Provider LAB MICROBIOLOGY - GENERAL ORDERABLES Final Result [facility] [address] [place] [phone] * (ABNORMAL) CBC auto differential (02/18/2025 8:49 AM EDT) Only the most recent of3 resultswithin the time period is included. White Blood Count 3.6(L) 4.8 - 10.8 X10*3/uL [facility] Red Blood Count 4.16(L) 4.20 - 5.50 X10*6/uL [facility] Hemoglobin 12.5 12.0 - 16.0 g/dl [facility] Hematocrit 37.9 37.0 - 47.0 % [facility] Mean Corpuscular Volume 91.1 80.0 - 98.0 fL [facility] Mean Corpuscular Hemoglobin 30.0 27.0 - 33.0 pg [facility] Mean Corpuscular HGB Conc 33.0 31.0 - 35.0 g/dl [facility] Red Cell Distribution Width 14.1 11.0 - 16.0 % [facility] Platelet Count 308 160 - 400 X10*3/uL [facility] Mean Platelet Volume 9.6 9.4 - 12.3 fL [facility] Neutrophils Percent Auto 44.3(L) 45 - 73 % [facility] Imm Gran Pct Auto 0.3 0.0 - 0.4 % [facility] Lymphocytes Percent Auto 47.5(H) 20 - 40 % [facility] Monocytes Percent Auto 5.6 2 - 11 % [facility] Eosinophils Percent Auto 1.7 0 - 4 % [facility] Basophils Percent Auto 0.6 0 - 2 % [facility] NRBC Pct Auto 0.0 0.0 - 0.2 /100WBC [facility] Neutrophils Absolute Auto 1.6(L) 2.0 - 8.3 x10*3/uL [facility] Imm Gran Abs Auto 0.01 0.00 - 0.03 X10*3/uL [facility] Lymphocytes Absolute Auto 1.7 1.2 - 4.9 X10*3/uL [facility] Monocytes Absolute Auto 0.2 0.1 - 1.2 X10*3/uL [facility] Eosinophils Absolute Auto 0.1 0.0 - 0.4 X10*3/uL [facility] Basophils Absolute Auto 0.0 0.0 - 0.2 X10*3/uL [facility] NRBC Abs Auto 0.000 0.0 - 0.012 X10*3/uL [facility] 02/18/2025 8:49 AM EDT 02/18/2025 8:54 AM EDT us Generic External Data Provider LAB BLOOD ORDERAB LES Final Result [facility] [address] [place] [phone] * (ABNORMAL) Sed Rate by Modified Maldonadoren (02/18/2025 8:49 AM EDT) Only the most recent of3 resultswithin the time period is included. Erythrocyte Sedimentation Rate 81(H) 0 - 20 MM/HR [facility] Comment:Patients with polycy themia and many hemoglobin abnormalitiesmay have depressed sed rates whereas patients with anemiamay have elevated sed rates. 02/18/2025 8:49 AM EDT 02/18/2025 8:54 AM EDT Generic External Data Provider LAB BLOOD ORDERAB LES Final Result Performing Organization Address [facility] Co de Phone Number [facility] [address] [place] [phone] * C-reactive Protein (02/18/2025 8:49 AM EDT) Only the most recent of2 resultswithin the time period is included. C Reactive Protein 0.44 < or = 0.50 mg/dL [facility] 02/18/2025 8:49 AM EDT 02/18/2025 8:54 AM EDT Generic External Data Provider LAB BLOOD ORDERAB LES Final Result Performing Organization Address [facility] de Phone Number [facility] [address] [place] [phone] * B Type Natriuretic Peptide (BNP) (02/18/2025 8:49 AM EDT) B Type Natriuretic Peptide 48 <100 pg/mL [facility] 02/18/2025 8:49 AM EDT 02/18/2025 8:54 AM EDT Generic External Data Provider LAB BLOOD ORDERAB LES Final Result Performing Organization Address [facility] Co de Phone Number [facility] [address] [place] [phone] * Magnesium (02/18/2025 8:49 AM EDT) Only the most recent of2 resultswithin the time period is included. Magnesium 2.2 1.6 - 2.6 mg/dL [facility] 02/18/2025 8:49 AM EDT 02/18/2025 8:54 AM EDT Generic External Data Provider LAB BLOOD ORDERAB LES Final Result Performing Organization Address [facility] de Phone Number [facility] [address] [place] [phone] * (ABNORMAL) Hepatic Function Panel (02/18/2025 8:49 AM EDT) Bilirubin, Total 0.2 0.0 - 1.0 mg/dL [facility] Bilirubin, Direct <0.2 0.0 - 0.5 mg/dL [facility] Aspartate Amino Transferase 29 5 - 31 U/L [facility] Comment:Slight Hemolysis.Int erpret result with caution. Alanine Aminotransferase 13 0 - 31 U/L [facility] Total Protein 9.6(H) 6.5 - 8.0 g/dL [facility] Albumin Level 4.2 3.5 - 5.0 g/dL [facility] Alkaline Phosphatase 91 39 - 117 U/L [facility] 02/18/2025 8:49 AM EDT 02/18/2025 8:54 AM EDT Generic External Data Provider LAB BLOOD ORDERAB LES Final Result Performing Organization Address [facility] de Phone Number [facility] [address] [place] [phone] * Basic Metabolic Panel (02/18/2025 8:49 AM EDT) Sodium 140 135 - 145 mmol/L [facility] Potassium 4.6 3.3 - 5.1 mmol/L [facility] Comment:Slight Hemolysis.Int erpret result with caution. Chloride 106 96 - 108 mmol/L [facility] Carbon Dioxide 25 22 - 29 mmol/L [facility] Anion Gap 14 12 - 20 [facility] Urea Nitrogen (BUN) 12 9 - 16 mg/dL [facility] Creatinine, Serum 0.62 0.5 - 1.4 mg/dL [facility] Creatinine Clr Calc Pharmacy 120.9 [facility] Comment:Provided height and weight: 167.64 cm,83.6 kg.eGFR (calculated from the MDRD study equation) and eCrCl(calculated from the Cockcroft-Gault equation) are based ondifferent parameters and may not yield comparable results.If eCrCl result is absurd, please check patient'sheight/weight. Estimated Glomerular Filt Rate >60 [facility] Comment:Chronic Kidney Disea se: Estimated GFR < 60 mL/min/1.17x5Tkgodr Kidney Disease: Estimated GFR < 15 mL/min/1.73m2 Glucose 101 60 - 115 mg/dL [facility] Calcium 9.6 8.4 - 10.2 mg/dL [facility] 02/18/2025 8:49 AM EDT 02/18/2025 8:54 AM EDT us Generic External Data Provider LAB BLOOD ORDERAB LES Final Result Performing Organization Address City/State/[facility] Co de Phone Number [facility] [address] [place] [phone] * XR Knee 3 Views Left (02/18/2025 8:14 AM EDT) Anatomical Region Laterality Modality Lower Extremities, Knee Left Radiogra phic Imaging 02/18/2025 8:1 4 AM EDT Narrative 02/18/2025 9:26 AM EDT [address] [address] XRay Report Signed Patient: Ginette Arceo MR #: [id number] : 1975 Acct:[id number] Age/Sex: 49 / F ADM Date: 02/18/25 Loc: .ED Attending Dr: Ordering Physician: Jana Mcdaniel Date of Service: 02/18/25 Procedure(s): XR knee LT 3V Accession Number(s): [id number] cc: Mackenzie Estrada; Jana Mcdaniel EXAMINATION: XR KNEE, LEFT CLINICAL INFORMATION: pain COMPARISON: None available. TECHNIQUE: Four views of the left knee. FINDINGS: No fracture or joint effusion. Alignment is anatomic. Joint spaces are maintained. No abnormal soft tissue calcification. XR/XR knee LT 3V IMPRESSION: Unremarkable left knee. Electronically signed by: Jamie Avelar MD 02/18/2025 09:23 AM EDT RP Dictated By: Jamie Avelar MD Signed By: <Electronically signed by Jamie Avelar MD in OV> 02/18/25922 DD/ 3 TD/TT: 02/18/25912 Auto Job Estimator: MAGGIE Procedure Note Donotuseinterpreter, Image - 02/18/2025 [place] [address] XRay Report Signed Patient: Ginette ArceoMR #: [id number] : 1975Acct:[id number] Age/Sex: 49 / FADM Date: 02/18/25 Loc: .ED Attending Dr: Ordering Physician: Jana Mcdaniel Date of Service: 02/18/25 Procedure(s): XR knee LT 3V Accession Number(s): [id number] cc: Mackenzie Estrada; Jana Mcdaniel EXAMINATION: XR KNEE, LEFT CLINICAL INFORMATION: pain COMPARISON: None available. TECHNIQUE: Four views of the left knee. FINDINGS: No fracture or joint effusion. Alignment is anatomic. Joint spaces are maintained. No abnormal soft tissue calcification. XR/XR knee LT 3V IMPRESSION: Unremarkable left knee. Electronically signed by: Jamie Avelar MD 02/18/2025 09:23 AM EDT RP Dictated By: Jamie Avelar MD Signed By: <Electronically signed by Jamie Avelar MD in OV> 02/18/25922 DD/ TD/TT: 02/18/25912 Auto Job Estimator: MAGGIE [facility] External Provider IMG XR PROCEDURES Final Result * XR Knee 3 Views Right (02/18/2025 8:11 AM EDT) Anatomical Region Laterality Modality Lower Extremities, Knee Right Radiogra phic Imaging 02/18/2025 8:11 AM EDT Narrative 02/18/2025 9:25 AM EDT [address] [address] XRay Report Signed Patient: Ginette Arceo MR #: [id number] : 1975 Acct:[id number] Age/Sex: 49 / F ADM Date: 02/18/25 Loc: HO.ED Attending Dr: Ordering Physician: Jana Mcdaniel Date of Service: 02/18/25 Procedure(s): XR knee RT 3V Accession Number(s): [id number] cc: Mackenzie Estrada; Jana Mcdaniel EXAMINATION: XR KNEE, RIGHT CLINICAL INFORMATION: pain COMPARISON: None available. TECHNIQUE: Four views of the right knee. FINDINGS: No fracture or joint effusion. Alignment is anatomic. Joint spaces are maintained. No abnormal soft tissue calcification. XR/XR knee RT 3V IMPRESSION: Normal right knee. Electronically signed by: Jamie Avelar MD 02/18/2025 09:22 AM EDT Dictated By: Jamie Avelar MD Signed By: <Electronically signed by Jamie Avelar MD in OV> 02/18/25921 DD/ 0811 TD/TT: 02/18/25 0913 Auto Job Estimator: [facility] Procedure Note Donotuseinterpreter, Image - 02/18/[address] [address] XRay Report Signed Patient: Ginette ArceoMR #: [id number] : 1975Acct:[id number] Age/Sex: 49 / FADM Date: 02/18/25 Loc: HO.ED Attending Dr: Ordering Physician: Jana Mcdaniel Date of Service: 02/18/25 Procedure(s): XR knee RT 3V Accession Number(s): [id number] cc: Mackenzie Estrada; Jana Mcdaniel EXAMINATION: XR KNEE, RIGHT CLINICAL INFORMATION: pain COMPARISON: None available. TECHNIQUE: Four views of the right knee. FINDINGS: No fracture or joint effusion. Alignment is anatomic. Joint spaces are maintained. No abnormal soft tissue calcification. XR/XR knee RT 3V IMPRESSION: Normal right knee. Electronically signed by: Jamie Avelar MD 02/18/2025 09:22 AM EDT Dictated By: Jamie Avelar MD Signed By: <Electronically signed by Jamie Avelar MD in OV> 02/18/25921 DD/ 0 TD/TT: 02/18/25912 Auto Job Estimator: MAGGIE [facility] External Provider IMG XR PROCEDURES Final Result * XR Hand 3+ Views Right (02/18/2025 8:08 AM EDT) Anatomical Region Laterality Modality Upper Extremities, Hand Right [facility] 02/18/2025 8:08 AM EDT Narrative 02/18/2025 9:30 AM EDT [place] [address] XRay Report Signed Patient: Ginette Arceo MR #: [id number] : 1975 Acct:[id number] Age/Sex: 49 / F ADM Date: 02/18/25 Loc: HO.ED Attending Dr: Ordering Physician: Jana Mcdaniel Date of Service: 02/18/25 Procedure(s): XR hand RT min 3V Accession Number(s): [id number] cc: Mackenzie Estrada; Jana Mcdaniel EXAMINATION: XR [...] Jamie Avelar MD 02/18/2025 09:27 AM EDT RP Dictated By: Jamie Avelar MD Signed By: <Electronically signed by Jamie Avelar MD in OV> 02/18/25926 DD/ 08 TD/TT: 02/18/25912 Auto Job Estimator: MAGGIE Procedure Note Donotuseinterpreter, Image - 02/18/[address] [address] XRay Report Signed Patient: Ginette ArceoMR #: [id number] : 1975Acct:[id number] Age/Sex: 49 / FADM Date: 02/18/25 Loc: HO.ED Attending Dr: Ordering Physician: Jana Mcdaniel Date of Service: 02/18/25 Procedure(s): XR hand RT min 3V Accession Number(s): [id number] cc: Mackenzie Estrada; Jana Mcdaniel EXAMINATION: XR [...] Jamie Avelar MD 02/18/2025 09:27 AM EDT RP Dictated By: Jamie Avelar MD Signed By: <Electronically signed by Jamie Avelar MD in OV> 02/18/25926 DD/ 7 TD/TT: 02/18/25912 Auto Job Estimator: MAGGIE [facility] External Provider IMG XR PROCEDURES Final Result * Culture, Urine, Routine (02/18/2025 12:00 AM EDT) Urine Urine specimen obtained by clean catch procedure / Unknown 02/18/2025 02/18/2025 Comment:UACC Narrative [facility] - 02/19/2025 9:03 AM EDT Strep agalactiae (Grp B) Quant 50,000 to 100,000 cfu/mL Susc N/A Susceptibility not routinely performed on this isolate. Specimen Source: Urine clean catch Generic External Data Provider LAB MICROBIOLOGY - GENERAL ORDERABLES Final Result Performing Organization Address City/State/[facility] Co de Phone Number [facility] [address] [place] [address] [phone] * XR Foot 3+ Views Left (02/04/2025 9:33 AM EDT) Only the most recent of2 resultswithin the time period is included. Anatomical Region Laterality Modality Lower Extremities, Foot Left Radiogra phic Imaging 02/04/2025 9:33 AM EDT Narrative 02/04/2025 9:35 AM EDT [address] [address] XRay Report Signed Patient: Ginette Arceo MR #: [id number] : 1975 Acct:[id number] Age/Sex: 49 / F ADM Date: 02/04/25 Loc: HO.ED Attending Dr: Ordering Physician: Raymon Fregoso MD Date of Service: 02/04/25 Procedure(s): XR foot LT min 3V Accession Number(s): [id number] cc: Raymon Fregoso MD; Mackenzie Estrada CLINICAL HISTORY: lt foot pain Exam: Left foot three views Comparison: CR/VA/SR - XR FOOT LT MIN 3V - [...] signed by Edelmira Gaitan MD in OV> 02/04/2535 DD/ 2 TD/TT: 02/04/25932 Auto Job Estimator: Procedure Note Donotuseinterpreter, Image - 02/04/2025 [place] [address] XRay Report Signed Patient: Ginette ArceoMR #: [id number] : 1975Acct:[id number] Age/Sex: 49 / FADM Date: 02/04/25 Loc: HO.ED Attending Dr: Ordering Physician: Raymon Fregoso MD Date of Service: 02/04/25 Procedure(s): XR foot LT min 3V Accession Number(s): [id number] cc: Raymon Fregoso MD; Mackenzie Estrada CLINICAL HISTORY: lt foot pain Exam: Left foot three views Comparison: CR/VA/SR - XR FOOT LT MIN 3V - [...] in OV> 02/04/25934 DD/ 2 TD/TT: 02/04/25932 Auto Job Estimator: [facility] External Provider IMG XR PROCEDURES Final Result * XR Ankle 3+ Views Left (02/04/2025 9:26 AM EDT) Only the most recent of2 resultswithin the time period is included. Anatomical Region Laterality Modality Lower Extremities, Ankle Left Radiogr aphic Imaging 02/04/2025 9:26 AM EDT Narrative 02/04/2025 9:28 AM EDT [place] [address] XRay Report Signed Patient: Ginette Arceo MR #: [id number] : 1975 Acct:[id number] Age/Sex: 49 / F ADM Date: 02/04/25 Loc: .ED Attending Dr: Ordering Physician: Raymon Fregoso MD Date of Service: 02/04/25 Procedure(s): XR ankle LT min 3V Accession Number(s): [id number] cc: Raymon Fregoso MD; Mackenzie Estrada CLINICAL HISTORY: lt ankle pain 3 view left ankle Comparison: CR/VA/SR - XR ANKLE LT MIN 3V - [...] in OV> 02/04/25926 DD/ 5 TD/TT: 02/04/25925 Auto Job Estimator: Procedure Note Lorin, Image - 02/04/2025 [place] [address] XRay Report Signed Patient: Ginette ArceoMR #: [id number] : 1975Acct:[id number] Age/Sex: 49 / FADM Date: 02/04/25 Loc: HO.ED Attending Dr: Ordering Physician: Raymon Fregoso MD Date of Service: 02/04/25 Procedure(s): XR ankle LT min 3V Accession Number(s): [id number] cc: Raymon Fregoso MD; Mackenzie Estrada CLINICAL HISTORY: lt ankle pain 3 view left ankle Comparison: CR/VA/SR - XR ANKLE LT MIN 3V - [...] in OV> 02/04/25926 DD/ 5 TD/TT: 02/04/25925 Auto Job Estimator: [facility] External Provider IMG XR PROCEDURES Final Result * (ABNORMAL) Comprehensive Metabolic Panel (02/04/2025 8:38 AM EDT) Only the most recent of2 resultswithin the time period is included. Sodium 138 135 - 145 mmol/L [facility] Potassium 3.8 3.3 - 5.1 mmol/L [facility] Chloride 106 96 - 108 mmol/L [facility] Carbon Dioxide 25 22 - 29 mmol/L [facility] Anion Gap 11(L) 12 - 20 [facility] Urea Nitrogen (BUN) 10 9 - 16 mg/dL [facility] Creatinine, Serum 0.56 0.5 - 1.4 mg/dL [facility] Creatinine Clr Calc Pharmacy 134.1 [facility] Comment:Provided height and weight: 167.64 cm,84 kg.eGFR (calculated from the MDRD study equation) and eCrCl(calculated from the Cockcroft-Gault equation) are based ondifferent parameters and may not yield comparable results.If eCrCl result is absurd, please check patient'sheight/weight. Estimated Glomerular Filt Rate >60 [facility] Comment:Chronic Kidney Disea se: Estimated GFR < 60 mL/min/1.39w5Aycjad Kidney Disease: Estimated GFR < 15 mL/min/1.73m2 Glucose 112 60 - 115 mg/dL [facility] Calcium 9.2 8.4 - 10.2 mg/dL [facility] Bilirubin, Total 0.3 0.0 - 1.0 mg/dL [facility] Aspartate Amino Transferase 16 5 - 31 U/L [facility] Alanine Aminotransferase 9 0 - 31 U/L [facility] Total Protein 8.3(H) 6.5 - 8.0 g/dL [facility] Albumin Level 3.9 3.5 - 5.0 g/dL [facility] Alkaline Phosphatase 80 39 - 117 U/L [facility] 02/04/2025 8:38 AM EDT 02/04/2025 8:40 AM EDT us Generic External Data Provider LAB BLOOD ORDERAB LES Final Result [facility] [address] [place] [address] [phone] * US VENOUS DUPLEX LE LT (01/17/2025 12:19 PM EDT) Anatomical Region Laterality Modality Abdomen Ultrasound 01/17/2025 12:1 9 PM EDT Narrative 01/17/2025 1:51 PM EDT [address] [address] Ultrasound Report Signed Patient: Ginette Arceo MR #: [id number] : 1975 Acct:[id number] Age/Sex: 49 / F ADM Date: 01/17/25 Loc: HO.ED Attending Dr: Ordering Physician: Jana Mcdaniel Date of Service: 01/17/25 Procedure(s): US venous duplex LE LT Accession Number(s): [id number] cc: Mackenzie Estrada; Jana Mcdaniel EXAMINATION: US [...] Hayden Jacobson MD 01/17/2025 01:48 PM EDT Dictated By: Hayden Jacobson MD Signed By: <Electronically signed by Hayden Jacobson MD in OV> 01/17/25 1348 DD/ 1219 TD/TT: 01/17/25 1331 Auto Job Estimator: Procedure Note Donotuseinterpreter, Image - 01/17/[address] [address] Ultrasound Report Signed Patient: Ginette ArceoMR #: [id number] : 1975Acct:[id number] Age/Sex: 49 / FADM Date: 01/17/25 Loc: .ED Attending Dr: Ordering Physician: Jana Mcdaniel Date of Service: 01/17/25 Procedure(s): US venous duplex LE LT Accession Number(s): [id number] cc: Mackenzie Estrada; Jana Mcdaniel EXAMINATION: US [...] Hayden Jacobson MD 01/17/2025 01:48 PM EDT Dictated By: Hayden Jacobson MD Signed By: <Electronically signed by Hayden Jacobson MD in OV> 01/17/25 1348 DD/ 1219 TD/TT: 01/17/25 1331 Auto Job Estimator: [facility] External Provider IMG US PROCEDURES Final Result * Hepatitis C Ab (04/11/2024 10:26 AM EDT) Hepatitis C Antibody Nonreactive Nonreactive [facility] Comment:Antibodies to HCV no t detected; does not exclude early acuteHCV infection. Blood Venous blood specimen / Unknown 04/11/2024 10:26 AM EDT 04/11/2024 11:19 AM EDT Mackenzie Estrada MD LAB BLOOD ORDERABLES Final Res ult [facility] [address] [place] [phone] * HIV-1/2 Antigen and Antibodies, Fourth Generation, with Reflexes (04/11/2024 10:26 AM EDT) HIV AB/AG Nonreactive Nonreactive [facility] Comment:HIV-1 p24 Ag and/or HIV-1/HIV-2 Ab not detected.A test result that is nonreactive does not exclude thepossibility of exposure to or infection with HIV-1 and/orHIV-2. Nonreactive results in this assay for individualswith prior exposure to HIV-1 and/or HIV-2 may be due toantigen and antibody levels that are below the limit ofdetection of this assay.The [employer] HIV Ag/Ab Combo assay result andsupplemental assay results should be interpreted inconjunction with the patient's clinical presentation,history and other laboratory results. If the results areinconsistent with clinical evidence, additional testing issuggested to confirm the result. Blood Venous blood specimen / Unknown 04/11/2024 10:26 AM EDT 04/11/2024 11:19 AM EDT us Mackenzie Estrada MD LAB BLOOD ORDERABLES Final Res ult [facility] [address] [place] [phone] * HPV mRNA E6/E7 w/Reflex to HPV Genotypes 16, 18/45 (09/29/2023 12:26 PM EST) HPV nRNA E6/E7 Not Detected Not Detected [facility] Comment:Methodology: Transcr iption-Mediated AmplificationThis assay detects E6/E7 viral messenger RNA (mRNA) from 14high-risk HPV types (16,18,31,33,35,39,45,51,52,56,58,59,66,68).Cervical sources are required for HPV testing.If a vaginal source from a patient who has had atotal hysterectomy with removal of cervix wassubmitted, please contact the testing laboratoryfor alternative testing options.For additional information, please refer [email or web address](This link if provided for information/educational purposes only.)THIS TEST WAS PERFORMED AT:[employer] [place] [phone] GALVAN MD HPV mRNA E6/E7 TNP [facility] HPV 16 RNA TNP [facility] HPV 18/45 RNA TNP [facility] 09/29/2023 12:2 6 PM EST 09/30/2023 11:30 AM EST us Mackenzie Estrada MD LAB CYTOLOGY ORDERABLES Final Result [facility] [address] [place] [address] [phone] * Pap Smear (09/29/2023 12:26 PM EST) 09/29/2023 12:2 6 PM EST 09/30/2023 11:30 AM EST Narrative [facility] - 10/12/2023 4:18 PM EDT ----- ------- Name: Ovidio LacyGinette barron Age/Sex: 48/F : 1975 [id number] [id number] Attend Dr: Mackenzie Estrada Re09/29/23 Status: DEP REF Location: HO.HHCX Disch: ----- ------- SPEC : [id number] RECD: 09/30/23-1129 STATUS: NIRMALA PEREZ NUM: [id number] BHAVIN: 09/29/23-[address] [facility] [address]: Mackenzie Estrada ENTERED: 09/30/23-1325 SP TYPE: Pap Smr OT DR: ORDERED: Pap Smear Interpretation Satisfactory for evaluation. Negative for intraepithelial lesion or malignancy. HPV mRNA E6/E7: NOT DETECTED This assay detects E6/E7 viral messenger RNA (mRNA) from 14 high-risk HPV types (16, 18, 31, 33, 35, 39, 45, 51, 52, 56, 58, 59, 66, 68) HPV testing performed by [facility], [place], [place]. See reference laboratory portion of the EMR for entire report. Clinical Information LMP: Heavy menstrual bleeding past two weeks Previous PAP test: Unknown date/findings Other history: Material Received ThinPrep-Cervical ----- ------- Signed (signature on file) BARB Hawley (ASCP) 10/12/23 1618 ----- ------- END OF REPORT Mackenzie Estrada MD LAB CYTOLOGY ORDERABLES Final Result [facility] [address] [place] [phone] * Mammography Report 1 (10/09/2021 12:05 [...] factors. LDL-C is now calculated using the Hi-Laguna calculation, which is a validated novel method providing better accuracy than the Friedewald equation in the estimation of LDL-C. Hi SS et al. ROXY. 2013;310(19): 4340-6820 (http://education.ExceleraRx.com/faq/FFJ806) Non-HDL Cholesterol 175(H) <130 mg/dL (calc) [facility] Comment: For patients with diabetes plus 1 major ASCVD risk factor, treating to a non-HDL-C goal of <100 mg/dL (LDL-C of <70 mg/dL) is considered a therapeutic option. Triglycerides 237(H) <150 mg/dL [facility] Comment: If a non-fasting specimen was collected, consider repeat triglyceride testing on a fasting specimen if clinically indicated. Cory et al. J. of Clin. Lipidol. 2015;9:129-169. 09/14/2021 2:52 PM EST us Mackenzie Estrada MD LAB BLOOD ORDERABLES Final Res ult [facility] [address] * Colonoscopy (10/28/2017) Colonoscopy Normal Normal Narrative Cecilia Henriquez - 10/28/2017 Recommended 10 year follow up ([facility]) Historical Provider HEALTH MAINTENANCE Edited Result - Final from Last 3 Months or Most Recently Relevant to Health Maintenance Insurance [facility] [address] [place] [phone] DENTAL-[facility] MEDICAID STAND ADULT Member Subscriber Plan / Payer (Ef fective 2023-Present) Name:Ginette rAceo Relation to Subscriber:Self Name:Ginette Arceo Payer ID:Not on file Group ID:Not on file Type:Not on file Address: [address] [address] Care Teams Display Mechanic Relationship Specialty Start Date End Date Mackenzie Estrada MD [address] [place] [address] [place] [address] PCP - General Family Medicine 07/10/20 Hemalatha Pretty House FatherForest Aide 01/02/25
--- OUTSIDE RECORDS SUMMARY | 2025-04-04 11:20 | XMS_ITS | Encounter Summary ---
Author Organization [employer] Address [address] [facility] [facility] [address] [place] [address] Care Team Providers Care [employer] Principal Name Role Phone Mackenzie Estrada MD Primary Care Provider [phone] Casper Magaña RN Unavailable [phone] Ruth Ann Price Unavailable Unavailable Ruth Ann Price Unavailable Ruth Ann Price Unavailable Reason for Visit * Reason Comments Med Refill Encounter Details Date Type Department Care Team (Late st Contact Info) Description 11/18/2023 Refill [facility] MED[facility]INE [address] [place] [address] Mackenzie Estrada MD [address] [place], [place] [phone] Pain in both hands Social History Tobacco [...] Description 05/14/2025 9:45 AM EDT Office Visit [facility]INE [address] [place] [address] documented as of this encounter Goals Goal Patient Goal Type Associated Problems Recent Progress Patient-Stated? Author Quit using tobacco (cigarettes, smokeless, etc) Tobacco Use Corey Cornell, PharmD documented as of this encounter Visit Diagnoses Diagnosis Pain in both hands documented in this encounter Care Teams High School Principal Relationship Specialty Start Date End Date Mackenzie Estrada MD [address] [place] [address] PCP - General Family Medicine 07/10/20 Casper Magaña, JENNIFER [address] [place] [address] Registered Nurse Family Medicine 01/18/25 01/18/25 Ruth Ann Price 02/19/25 02/19/25 Ruth Ann Price 02/19/25 02/28/25 Ruth Ann Price 03/29/25 04/03/25 Hemalatha Pretty Metal FilerLease Broker 01/02/25 documented as of this encounter
--- OUTSIDE RECORDS SUMMARY | 2025-04-04 11:20 | XMS_ITS | Encounter Summary ---
Author Organization [employer] [facility] Address [address] [facility] [address] [place] [address] Care Team Providers Care Strickler Attendant Name Role Phone Mackenzie Estrada MD Primary Care Provider [phone] Casper Magaña RN Unavailable [phone] Ruth Ann Price Unavailable Unavailable Ruth Ann Price Unavailable Ruth Ann Price Unavailable Encounter Details Date Type Department Care Team (Late Contact Info) Description 03/04/2023 Orders Only [facility] MEDICINE [address] [place] [phone] Kat Yo MD [address] [place] [phone] Social History Tobacco Use Types Packs/Day Years [...] Description 05/14/2025 9:45 AM EDT Office Visit [facility] MED[facility]INE [address] [place] [phone] documented as of this encounter Visit Diagnoses Not on filedocumented in this encounter Care Teams Strickler Attendant Relationship Specialty Start Date End Date Mackenzie Estrada MD [address] [place] [address] PCP - General Family Medicine 07/10/20 Casper Magaña, JENNIFER [address] [place] [address] Registered Nurse Family Medicine 01/18/25 01/18/25 Ruth Ann Price 02/19/25 02/19/25 Ruth Ann Price 02/19/25 02/28/25 Ruth Ann Price 03/29/25 04/03/25 Hemalatha Pretty Patient Relations RepresentativeNetwork Applications Specialist 01/02/25 documented as of this encounter
--- OUTSIDE RECORDS SUMMARY | 2025-04-04 11:20 | XMS_ITS | Encounter Summary ---
Author Organization [employer] Address 75 [facility] 7t [place] [address] Care Team Providers Care Loading Unit Operator Name Role Phone Mackenzie Estrada MD Primary Care Provider [phone] Casper Magaña RN Unavailable [phone] Ruth Ann Price Unavailable Unavailable Ruth Ann Price Unavailable Ruth Ann Price Unavailable Reason for Referral * Imaging (Routine) - Closed Specialty Diagnoses / Procedures Referred By Contac t Referred To Contact Radiology Diagnoses Abnormal ultrasound of pelvis Procedures MR Pelvis w/ and w/o Contrast Mackenzie Estrada MD [address] [place] [address] Phone: tel: fax: [address] Phone: tel: fax: Referral ID Status Reason Start Date Expiration Date Visits Re quested Visits Authorized [id number] Closed 10/31/2023 10/30/2024 1 1 Encounter Details Date Type Department Care Team (Late st Contact Info) Description 10/31/2023 Orders Only [facility] [address] [place], [place] [phone] Mackenzie Estrada MD [address] [place], [place] [phone] Abnormal ultrasound of pelvis (Primary Dx) Social [...] which I need to talk to her teenage program director about. Thank you! documented in this encounter Plan of Treatment Upcoming Encounters Date Type Department Care Team (Late st Contact Info) Description 05/14/2025 9:45 AM EDT Office Visit [facility] [address] [place] [address] documented as of this encounter Goals Goal [...] PM EDT Narrative 12/07/2023 9:11 AM EDT [address] [address] Magnetic Resonance Report Signed Patient: Ginette Arceo MR #: [id number] : 1975 Acct:[id number] Age/Sex: 48 / F ADM Date: 11/25/23 Loc: .MRI Attending Dr: Mackenzie Estrada MD Ordering Physician: Mackenzie Estrada Date of Service: 11/25/23 Procedure(s): MR pelvis wo/w con Accession Number(s): [id number] cc: Mackenzie Estrada EXAMINATION: MR PELVIS WITHOUT [...] measures 7.8 x 3.6 x 4.3 cm (qaoauc-hd-pgdihm x AP x transverse dimension). The junctional [...] in OV> 12/07/23 0907 DD/ 1505 TD/TT: Plunger Machine Operator: PD Procedure Note Donotuseinterpreter, Image - 12/07/[address] [place] [address] Magnetic Resonance Report Signed Patient: iGnette Arceo #: [id number] : 1975Acct:[id number] Age/Sex: 48 / FADM Date: 11/25/23 Loc: .MRI Attending Dr: Mackenzie Estrada MD Ordering Physician: Mackenzie Estrada Date of Service: 11/25/23 Procedure(s): MR pelvis wo/w con Accession Number(s): [id number] cc: Mackenzie Estrada EXAMINATION: MR PELVIS WITHOUT [...] measures 7.8 x 3.6 x 4.3 cm (chbcap-og-hhvgvg x AP x transverse dimension). The junctional [...] in OV> 12/07/23 0907 DD/ 1505 TD/TT: Plunger Machine Operator: PD us Mackenzie Estrada MD IMG MRI PROCEDURES Final Resul t documented in this encounter Visit Diagnoses Diagnosis Abnormal ultrasound of pelvis- Primary documented in this encounter Care Teams Loading Unit Operator Relationship Specialty Start Date End Date Mackenzie Estrada MD [address] [place] [address] PCP - General Family Medicine 07/10/20 Casper Magaña, RN [address] [place] [address] Registered Nurse Family Medicine 01/18/25 01/18/25 Ruth Ann Price 02/19/25 02/19/25 Ruth Ann Price 02/19/25 02/28/25 Ruth Ann Price 03/29/25 04/03/25 Hemalatha Pretty File ClerkOrganic Chemistry Teacher 01/02/25 documented as of this encounter
--- OUTSIDE RECORDS SUMMARY | 2025-04-04 11:20 | XMS_ITS | Encounter Summary ---
Author Organization [employer] Address 75 [facility] 7t [place] [address] Care Team Providers Care City Director Name Role Phone Mackenzie Estrada MD Primary Care Provider [phone] Ruth Ann Price Unavailable Unavailable Ruth Ann Price Unavailable Ruth Ann Price Unavailable Reason for Visit * Reason Comments Med Refill Encounter Details Date Type Department Care Team ([facility] st Contact Info) Description 02/01/2025 Refill [facility] [address] [place], [place] [phone] Ebony Daigle MD [address] [place], [place] [phone] Social History Tobacco Use Types Packs/Day Years [...] Description 05/14/2025 9:45 AM EDT Office Visit [facility] [address] [place] [address] documented as of this encounter Goals Goal [...] documented as of this encounter Care Teams City Director Relationship Specialty Start Date End Date Mackenzie Estrada MD [address] [place] [address] PCP - General Family Medicine 07/10/20 Ruth Ann Price 02/19/25 02/19/25 Ruth Ann Price 02/19/25 02/28/25 Ruth Ann Price 03/29/25 04/03/25 Hemalatha Pretty Collar Stay Fuser TenderStraw Boss 01/02/25 documented as of this encounter
--- OUTSIDE RECORDS SUMMARY | 2025-04-04 11:20 | XMS_ITS | Encounter Summary ---
Author Organization [employer] Address [address] [facility] [address] 7t [place] [address] Care Team Providers Care Human Resources Department Supervisor Name Role Phone Mackenzie Estrada MD Primary Care Provider [phone] Casper Magaña RN Unavailable [phone] Ruth Ann Price Unavailable Unavailable Ruth Ann Price Unavailable Ruth Ann Price Unavailable Encounter Details Date Type Department Care Team (Late st Contact Info) Description 10/03/2023 Orders Only [facility] [address] [place] [address] Mackenzie Estrada MD 230 [place], [place] [phone] Bacterial vaginosis (Primary Dx) Social History Tobacco [...] Description 05/14/2025 9:45 AM EDT Office Visit [facility] [address] [place] [address] documented as of this encounter Goals Goal Patient Goal Type Associated Problems Recent Progress Patient-Stated? Author Quit using tobacco (cigarettes, smokeless, etc) Tobacco Use Corey Cornell, Bailey documented as of this encounter Visit Diagnoses Diagnosis Bacterial vaginosis- Primary Unspecified vaginitis and vulvovaginitis documented in this encounter Care Teams Human Resources Department Supervisor Relationship Specialty Start Date End Date Mackenzie Estrada MD [address] [place] [address] PCP - General Family Medicine 07/10/20 Casper Magaña, JENNIFER [address] [place] [address] Registered Nurse Family Medicine 01/18/25 01/18/25 Ruth Ann Price 02/19/25 02/19/25 Ruth Ann Price 02/19/25 02/28/25 Ruth Ann Price 03/29/25 04/03/25 Hemalatha Pretty Phlebotomist AssociateMechanical Service Technician 01/02/25 documented as of this encounter
--- OUTSIDE RECORDS SUMMARY | 2025-04-04 11:20 | XMS_ITS | Encounter Summary ---
Author Organization [employer] Address 75 [facility] 7t [place] [address] Care Team Providers Care Spa Director/Finance Name Role Phone Mackenzie Estrada MD Primary Care Provider [phone] Casper Magaña RN Unavailable [phone] Ruth Ann Price Unavailable Unavailable Ruth Ann Price Unavailable Ruth Ann Price Unavailable Reason for Visit * Reason Comments Med Refill Encounter Details Date Type Department Care Team (Late st Contact Info) Description 10/10/2024 Refill [facility] [address] [place] [address] Mackenzie Estrada MD 230 [place] [address] 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 ([facility]) Social History Tobacco Use Types Packs/Day Years [...] Upcoming Encounters Date Type Department Care Team ([facility] st Contact Info) Description 05/14/2025 9:45 AM EDT Office Visit [facility] [address] [place] [address] documented as of this encounter Goals Goal [...] documented as of this encounter Care Teams Spa Director/Finance Relationship Specialty Start Date End Date Mackenzie Estrada MD [address] [place] [address] PCP - General Family Medicine 07/10/20 Casper Magaña, RN [address] [place] [address] [place] [address] Registered Nurse Family Medicine 01/18/25 01/18/25 Ruth Ann Price 02/19/25 02/19/25 Ruth Ann Price 02/19/25 02/28/25 Ruth Ann Price 03/29/25 04/03/25 Hemalatha Pretty Open Soaper TenderSponge Hooker 01/02/25 documented as of this encounter
--- OUTSIDE RECORDS SUMMARY | 2025-04-04 11:20 | XMS_ITS | Encounter Summary ---
Author Organization [employer] Address 75 [facility] 7t [place] [address] Care Team Providers Care Offset Proof Press Operator Name Role Phone Mackenzie Estrada MD Primary Care Provider [phone] Ruth Ann Price Unavailable Unavailable Ruth Ann Price Unavailable Ruth Ann Price Unavailable Reason for Visit * Reason Comments Med Refill Encounter Details Date Type Department Care Team ([facility] st Contact Info) Description 01/24/2025 Refill [facility] [address] [place] [address] Ebony Daigle MD 230 [place], [place] [phone] Rheumatoid arthritis involving multiple sites with positive rheumatoid factor ([facility]) Social History Tobacco Use Types Packs/Day Years [...] Description 05/14/2025 9:45 AM EDT Office Visit [facility] [address] [place] [address] documented as of this encounter Goals Goal [...] documented as of this encounter Care Teams Offset Proof Press Operator Relationship Specialty Start Date End Date Mackenzie Estrada MD [address] [place] [address] PCP - General Family Medicine 07/10/20 Ruth Ann Price 02/19/25 02/19/25 Ruth Ann Price 02/19/25 02/28/25 Ruth Ann Price 03/29/25 04/03/25 Hemalatha Pretty Data Examination ClerkPrecision Dancer 01/02/25 documented as of this encounter
--- OUTSIDE RECORDS SUMMARY | 2025-04-04 11:20 | XMS_ITS | Encounter Summary ---
Author Organization [employer] Address [address] [facility] [address] 7t [place] [address] Care Team Providers Care Ruling Technician Name Role Phone Mackenzie Estrada MD Primary Care Provider [phone] Casper Magaña RN Unavailable [phone] Ruth Ann Price Unavailable Unavailable Ruth Ann Price Unavailable Ruth Ann Price Unavailable Reason for Visit * Reason Comments Med Refill Encounter Details Date Type Department Care Team (Late st Contact Info) Description 10/10/2024 Refill [facility] [address] [place] [address] Kat Yo MD [address] [place], [place] [phone] Rheumatoid arthritis involving right hand with positive [...] Upcoming Encounters Date Type Department Care Team ([facility] st Contact Info) Description 05/14/2025 9:45 AM EDT Office Visit [facility] [address] [place] [address] documented as of this encounter Goals Goal [...] documented as of this encounter Care Teams Ruling Technician Relationship Specialty Start Date End Date Mackenzie Estrada MD [address] [place] [address] PCP - General Family Medicine 07/10/20 Casper Magaña, RN [address] [place] [address] [place] [address] Registered Nurse Family Medicine 01/18/25 01/18/25 Ruth Ann Price 02/19/25 02/19/25 Ruth Ann Price 02/19/25 02/28/25 Ruth Ann Price 03/29/25 04/03/25 Hemalatha Pretty Project Reservoir EngineerBrake Lining Driller 01/02/25 documented as of this encounter
--- OUTSIDE RECORDS SUMMARY | 2025-04-04 11:20 | XMS_ITS | Encounter Summary ---
Author Organization [employer] Address 75 [facility] 7t [place] [address] Care Team Providers Care Street Roller Engineer Name Role Phone Mackenzie Estrada MD Primary Care Provider [phone] Casper Magaña RN Unavailable [phone] Ruth Ann Price Unavailable Unavailable Ruth Ann Price Unavailable Ruth Ann Price Unavailable Reason for Visit * Reason Comments Med Refill Encounter Details Date Type Department Care Team ([facility] Contact Info) Description 12/10/2022 Refill [facility] [address] [place] [address] Mackenzie Estrada MD [address] [place] [address] Pain in both hands Social History Tobacco [...] [facility] Contact Info) Description 05/14/2025 9:45 AM EDT Office Visit [facility] [address] [place] [address] documented as of this encounter Visit Diagnoses Diagnosis Pain in both hands documented in this encounter Care Teams Street Roller Engineer Relationship Specialty Start Date End Date Mackenzie Estrada MD [address] [place] [address] PCP - General Family Medicine 07/10/20 Casper Magaña, JENNIFER [address] [place] [address] Registered Nurse Family Medicine 01/18/25 01/18/25 Ruth Ann Price 02/19/25 02/19/25 Ruth Ann Price 02/19/25 02/28/25 Ruth Ann Price 03/29/25 04/03/25 Hemalatha Pretty Retail Store ClerkExtension Agent 01/02/25 documented as of this encounter
--- OUTSIDE RECORDS SUMMARY | 2025-04-04 11:20 | XMS_ITS | Encounter Summary ---
Author Organization [employer] Address 75 [facility] 7t [place] [address] Care Team Providers Care Master Dyer Name Role Phone Mackenzie Estrada MD Primary Care Provider [phone] Casper Magaña RN Unavailable [phone] Ruth Ann Price Unavailable Unavailable Ruth Ann Price Unavailable Ruth Ann Price Unavailable Reason for Visit * Reason Comments Med Refill Encounter Details Date Type Department Care Team (Late st Contact Info) Description 02/08/2023 Refill [facility] [address] [place] [address] Mackenzie Estrada MD [address] [place] [address] Pain in both hands Social History Tobacco [...] 05/14/2025 9:45 AM EDT Office Visit [facility] [address] [place] [address] documented as of this encounter Visit Diagnoses Diagnosis Pain in both hands documented in this encounter Care Teams Master Dyer Relationship Specialty Start Date End Date Mackenzie Estrada MD [address] [place] [address] PCP - General Family Medicine 07/10/20 Casper Magaña, JENNIFER [address] [place] [address] Registered Nurse Family Medicine 01/18/25 01/18/25 Ruth Ann Price 02/19/25 02/19/25 Ruth Ann Price 02/19/25 02/28/25 Ruth Ann Price 03/29/25 04/03/25 Hemalatha Pretty Inorganic Chemical TechnicianTelevision Mechanic 01/02/25 documented as of this encounter
--- OUTSIDE RECORDS SUMMARY | 2025-04-04 11:20 | XMS_ITS | Encounter Summary ---
Author Organization [employer] Address [address] [facility] [address] 7t [place] [address] Care Team Providers Care Stock Cutter Name Role Phone Mackenzie Estrada MD Primary Care Provider [phone] Ruth Ann Price Unavailable Unavailable Ruth Ann Price Unavailable Ruth Ann Price Unavailable Reason for Visit * Reason Comments Med Refill Encounter Details Date Type Department Care Team ([facility] st Contact Info) Description 01/24/2025 Refill [facility] [address] [place] [address] Kat Yo MD [address] [place] [address] Rheumatoid arthritis involving right hand with positive [...] 05/14/2025 9:45 AM EDT Office Visit [facility] [address] [place] [address] documented as of this encounter Goals Goal [...] documented as of this encounter Care Teams Stock Cutter Relationship Specialty Start Date End Date Mackenzie Estrada MD [address] [place] [address] PCP - General Family Medicine 07/10/20 Ruth Ann Price 02/19/25 02/19/25 Ruth Ann Price 02/19/25 02/28/25 Ruth Ann Price 03/29/25 04/03/25 Hemalatha Pretty Collection Systems TechnicianAttraction Worker 01/02/25 documented as of this encounter
--- OUTSIDE RECORDS SUMMARY | 2025-04-04 11:20 | XMS_ITS | Encounter Summary ---
Author Organization [employer] Address [address] [facility] [address] 7t [place] [address] Care Team Providers Care Staff Physical Therapy Assistant Name Role Phone Mackenzie Estrada MD Primary Care Provider [phone] Casper Magaña RN Unavailable [phone] Ruth Ann Price Unavailable Unavailable Ruth Ann Price Unavailable Ruth Ann Price Unavailable Encounter Details Date Type Department Care Team (Late st Contact Info) Description 06/03/2023 Orders Only [facility] [address] [place] [address] Mackenzie Estrada MD 230 [place], [place] [phone] Pain in both hands Social History Tobacco [...] Description 05/14/2025 9:45 AM EDT Office Visit [facility] [address] [place] [address] documented as of this encounter Goals Goal [...] PM EST Narrative 06/03/2023 5:47 PM EDT [address] [address] XRay Report Signed Patient: Ginette Arceo MR #: [id number] : 1975 Acct:[id number] Age/Sex: 47 / F ADM Date: 06/25/23 Loc: HO.ED Attending Dr: Ordering Physician: Treasure Clemons Date of Service: 06/25/23 Procedure(s): XR chest 2V Accession Number(s): [id number] cc: Mackenzie Estrada; Treasure Clemons EXAMINATION: XR [...] in OV> 06/25/23 1230 DD/ 1215 TD/TT: Ditching Machine Operating Engineer: [facility] Procedure Note Donotuseinterpreter, Image - 06/25/[address] [address] XRay Report Signed Patient: Ginette ArceoMR #: [id number] : 1975Acct:[id number] Age/Sex: 47 / FADM Date: 06/25/23 Loc: HO.ED Attending Dr: Ordering Physician: Treasure Clemons Date of Service: 06/25/23 Procedure(s): XR chest 2V Accession Number(s): [id number] cc: Mackenzie Estrada; Treasure Clemons EXAMINATION: XR [...] in OV> 06/25/23 1230 DD/ 1215 TD/TT: Ditching Machine Operating Engineer: [facility] External Provider IMG XR PROCEDURES Edited Result - Final * (ABNORMAL) Urinalysis, Complete, with Reflex to Culture (06/03/2023 4:49 PM EDT) Color Urine Yellow [facility] Appearance Urine Clear [facility] PH 5.5 5.0 - 9.0 [facility] Glucose Urine UA Negative Negative mg/dL [facility] Urine Blood Large (3+)(A) Negative [facility] Specific [place] - Urine 1.025 1.005 - 1.025 [facility] Urine Protein Negative Neg-Trace mg/dL [facility] Urine Ketones Negative Negative mg/dL [facility] Nitrite Urine Negative Negative [facility] Leukocyte Esterase Urine Negative Negative [facility] RBC Urine >20(A) 0 - 2 /HPF [facility] Urine WBC 0-5 0 - 5 /HPF [facility] Urine Squamous Epithelial Cell 11-20 0 - 2 /HPF [facility] Urine Bacteria 1+ None Seen [facility] Hyaline Casts, Urine 0-2 0 - 2 /LPF [facility] 06/03/2023 4:49 PM EDT 06/03/2023 4:52 PM EDT Narrative [facility] - 06/03/2023 5:00 PM EDT Urine, Clean Catch Generic External Data Provider LAB URINE ORDERAB LES Final Result [facility] [address] [place] [phone] * (ABNORMAL) Urinalysis w/reflex microscopic (06/03/2023 4:49 PM EDT) Color Urine Yellow [facility] Appearance Urine Clear [facility] PH 5.5 5.0 - 9.0 [facility] Glucose Urine UA Negative Negative mg/dL [facility] Urine Blood Large (3+)(A) Negative [facility] Specific [place] - Urine 1.025 1.005 - 1.025 [facility] Urine Protein Negative Neg-Trace mg/dL [facility] Urine Ketones Negative Negative mg/dL [facility] Nitrite Urine Negative Negative [facility] Leukocyte Esterase Urine Negative Negative [facility] 06/03/2023 4:49 PM EDT 06/03/2023 4:52 PM EDT Narrative [facility] - 06/03/2023 4:57 PM EDT Urine, Clean Catch us Generic External Data Provider LAB URINE ORDERAB LES Final Result [facility] [address] [place] [address] [phone] * Influenza A B2 ID NOW ([place]) (06/03/2023 4:34 PM EDT) IDNOW SERIAL# [id number] [facility] Influenza A Negative Negative [facility] Influenza B2 Negative Negative [facility] Influenza A B2 Note See Note [facility] Comment:The [place] ID NOW In [...] GENERAL ORDERABLES Final Result Performing Organization Address [facility] Co de Phone Number [facility] [address] [place] [address] [phone] * COVID-19 ID NOW ([place]) (06/03/2023 4:34 PM EDT) IDNOW SERIAL# [id number] [facility] COVID-19 TEST Negative Negative [facility] COVID-19 NOTE See Note [facility] Comment: Results are for the identification of SARS-CoV2 RNA. TheSARS-CoV2 RNA is generally detectable in respiratory samplesduring the acute phase of infection. Positive results areindicative of the presence of SARS-CoV-2 RNA; clinicalcorrelation with patient history and other diagnosticinformation is necessary to determine patient infectionstatus. Positive results do not rule out bacterial infectionor co- infection with other viruses.Testing facilities within the [facility] and [facility] are required to report all [...] GNOSTICS ORDERABLES Final Result Performing Organization Address City/[facility]/ZIP Co de Phone Number [facility] [address] [place] [address] [phone] documented in this encounter Visit Diagnoses Diagnosis Pain in both hands documented in this encounter Care Teams Staff Physical Therapy Assistant Relationship Specialty Start Date End Date Mackenzie Estrada MD [address] [place] [address] PCP - General Family Medicine 07/10/20 Casper Magaña, JENNIFER [address] [place] [address] Registered Nurse Family Medicine 01/18/25 01/18/25 Ruth Ann Price 02/19/25 02/19/25 Ruth Ann Price 02/19/25 02/28/25 Ruth Ann Price 03/29/25 04/03/25 Hemalatha Pretty Shake SawyerAction Installer 01/02/25 documented as of this encounter
--- OUTSIDE RECORDS SUMMARY | 2025-04-04 11:20 | XMS_ITS | Clinical Summary ---
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 Acute deep vein thrombosis ( DVT) of brachial vein of right upper extremity ([facility] V24, [facility] V28) 05/09/2020 DX:Acute deep vein thrombos is (DVT) of brachial vein of right upper extremity (HCC) Axillary lymphadenopathy 05/09/2020 DX:Axil harvinder lymphadenopathy Gastroesophageal reflux disease 05/09/2020 DX:Gastroesophageal reflux disease Personal history of Hodgkin lymphoma 05/09/2020 DX:Personal history of Hodgkin lymphoma Recurrent major depressive d isorder in remission ([facility] V24) 05/09/2020 DX:Recurrent major depressiv e disorder in remission (HCC) Rheumatoid arthritis involvi ng multiple sites ([facility] V24, [facility] V28) 05/09/2020 DX:Rheumatoid arthritis invo lving multiple sites (HCC) Hodgkin's disease, nodular s clerosis, of lymph nodes of multiple sites ([facility] V24, [facility] V28) DX:Hodgkin's disease, nodul ar [...] Cervical Cancer Screening: P ap Smear 1997 Depression Screening 08/01/2024 COVID-19 Vaccine (2023-2 5 season) 2025 Influenza Vaccine (#1) 2025 HIB Vaccines Aged [...] age to complete this topic Care Teams Optometrist/Practice Owner Relationship Specialty Start Date End Date Sanjay Crzu MD [address] [place] [phone] PCP - General Internal Medicine 04/09/20
[2025-04-04 11:21] LABS: MANUAL DIFF FLAG NO
--- OUTSIDE RECORDS SUMMARY | 2025-04-04 11:21 | XMS_ITS | Encounter Summary ---
Author Organization [employer] Address [address] [facility] 7t [place] [address] Care Team Providers Care Community Organization Worker Name Role Phone Mackenzie Estrada MD Primary Care Provider [phone] Casper Magaña RN Unavailable [phone] Ruth Ann Price Unavailable Unavailable Ruth Ann Price Unavailable Ruth Ann Price Unavailable Reason for Visit * Reason Comments Med Refill Encounter Details Date Type Department Care Team (Late st Contact Info) Description 08/26/2023 Refill [facility] MEDICINE [address] [place] [address] Sisi Kennedy, FARHEEN [address] [place] [address] Viral upper respiratory tract infection Social History [...] Visit [facility] MED[facility]INE 230 [place] [address] documented as of this encounter Goals Goal Patient Goal Type Associated Problems Recent Progress Patient-Stated? Author Quit using tobacco (cigarettes, smokeless, etc) Tobacco Use Corey Cornell, PharmD documented as of this encounter Visit Diagnoses Diagnosis Viral upper respiratory tract infection Acute upper respiratory infections of unspecified site documented in this encounter Care Teams Community Organization Worker Relationship Specialty Start Date End Date Mackenzie Estrada MD 230 [place] [address] PCP - General Family Medicine 07/10/20 Casper Magaña, JENNIFER [address] [place] [address] Registered Nurse Family Medicine 01/18/25 01/18/25 Ruth Ann Price 02/19/25 02/19/25 Ruth Ann Price 02/19/25 02/28/25 Ruth Ann Price 03/29/25 04/03/25 Hemalatha Pretty Workers Compensation Legal SecretaryChuck Wagon Cook 01/02/25 documented as of this encounter
--- OUTSIDE RECORDS SUMMARY | 2025-04-04 11:21 | XMS_ITS | Encounter Summary ---
Author Organization [employer] Address [address] [facility] 7t [place] [address] Care Team Providers Care Assembly Supervisor Name Role Phone Mackenzie Estrada MD Primary Care Provider [phone] Casper Magaña RN Unavailable Ruth Ann Price Unavailable Unavailable Ruth Ann Price Unavailable Ruth Ann Price Unavailable Reason for Visit * Reason Comments Med Refill Encounter Details Date Type Department Care Team ([facility] Contact Info) Description 09/22/2022 Refill [facility] [address] [place] [address] Sarika Palacios, RHONA [address] [place] [address] Tinea pedis of both feet Social History [...] Upcoming Encounters Date Type Department Care Team ([facility] Contact Info) Description 05/14/2025 9:45 AM EDT Office Visit [facility] MEDICINE [address] [place] [address] documented as of this encounter Visit Diagnoses Diagnosis Tinea pedis of both feet documented in this encounter Care Teams Assembly Supervisor Relationship Specialty Start Date End Date Mackenzie Estrada MD [address] [place] [address] PCP - General Family Medicine 07/10/20 Casper Magaña, JENNIFER [address] [place] [address] Registered Nurse Family Medicine 01/18/25 01/18/25 Ruth Ann Price 02/19/25 02/19/25 Ruth Ann Price 02/19/25 02/28/25 Ruth Ann Price 03/29/25 04/03/25 Hemalatha Pretty Informatica Mdm ArchitectRisk Manager 01/02/25 documented as of this encounter
--- OUTSIDE RECORDS SUMMARY | 2025-04-04 11:21 | XMS_ITS | Encounter Summary ---
Author Organization [employer] Address 75 [facility] 7t [place] [address] Care Team Providers Care Linux Programmer Name Role Phone Mackenzie Estrada MD Primary Care Provider [phone] Casper Magaña RN Unavailable [phone] Ruth Ann Price Unavailable Unavailable Ruth Ann Price Unavailable Ruth Ann Price Unavailable Reason for Visit * Reason Comments Med Refill Encounter Details Date Type Department Care Team ([facility] Contact Info) Description 08/25/2022 Refill [facility] MEDICINE 230 [place] [address] Mackenzie Estrada MD 230 [place] [address] Pain in both hands Social History Tobacco [...] [facility] Contact Info) Description 05/14/2025 9:45 AM EDT Office Visit [facility] MEDICINE 230 [place] [address] documented as of this encounter Visit Diagnoses Diagnosis Pain in both hands documented in this encounter Care Teams Linux Programmer Relationship Specialty Start Date End Date Mackenzie Estrada MD 230 [place] [address] PCP - General Family Medicine 07/10/20 Casper Magaña, JENNIFER [address] [place] [address] Registered Nurse Family Medicine 01/18/25 01/18/25 Ruth Ann Price 02/19/25 02/19/25 Ruth Ann Price 02/19/25 02/28/25 Ruth Ann Price 03/29/25 04/03/25 Hemalatha Pretty Director Of Product ManagementMaster Steam Yacht 01/02/25 documented as of this encounter
--- OUTSIDE RECORDS SUMMARY | 2025-04-04 11:21 | XMS_ITS | Encounter Summary ---
Author Organization [employer] Address 75 [facility] 7t [place] [address] Care Team Providers Care Front Office Java Developer Name Role Phone Mackenzie Estrada MD Primary Care Provider [phone] Ruth Ann Price Unavailable Reason for Visit * Reason Comments Med Refill Encounter Details Date Type Department Care Team ([facility] st Contact Info) Description 03/14/2025 Refill [facility] MEDICINE 230 [place] [address] Livia Amos MD 230 [place] [address] 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 [...] Description 05/14/2025 9:45 AM EDT Office Visit [facility] MEDICINE 230 [place] [address] documented as of this encounter Goals Goal [...] documented as of this encounter Care Teams Front Office Java Developer Relationship Specialty Start Date End Date Mackenzie Estrada MD 230 [place] [address] PCP - General Family Medicine 07/10/20 Ruth Ann Price 03/29/25 04/03/25 Hemalatha Pretty Dining Room CashierKiln Hand 01/02/25 documented as of this encounter
--- OUTSIDE RECORDS SUMMARY | 2025-04-04 11:21 | XMS_ITS | Encounter Summary ---
Author Organization [employer] Address [address] [facility] [address] 7t [place] [address] Care Team Providers Care Gis Specialist Name Role Phone Mackenzie Estrada MD Primary Care Provider [phone] Ruth Ann Price Unavailable Encounter Details Date Type Department Care Team (Latest Contact Info) Description 04/03/2025 Travel Social History Tobacco Use Types Packs/Day [...] AM EDT documented as of this encounter Functional Status * Over the past 2 weeks, how often have you been bothered by any of the following problems? Question Answer Date of Assessment Author Patient Health Questionnaire -2 Score 3 04/03/2025 11:40 AM EDT Ashli Moss [place] * Little interest or pleasure in doing things Answer Date of Assessment Author Nearly every day 04/03/2025 11:40 AM EDT Ashli Moss [place] * Feeling down, depressed, or hopeless Answer Date of Assessment Author Not at all 04/03/2025 11:40 AM ANGELOT Ashli Moss [place] * Trouble falling or staying asleep, or sleeping too much Answer Date of Assessment Author Several days 04/03/2025 11:40 AM ANGELOT Ashli Moss [place] * Feeling tired or having little energy Answer Date of Assessment Author Several days 04/03/2025 11:40 AM EDT Ashli Moss MA * Poor appetite or overeating Answer Date of Assessment Author Not at all 04/03/2025 11:40 AM ANGELOT Ashli Moss [place] * Feeling bad about yourself - or that you are a failure or have let yourself or your family down Answer Date of Assessment Author Not at all 04/03/2025 11:40 AM ANGELOT Ashli Moss [place] * Trouble concentrating on things, such [...] or on edge 0 04/03/2025 11:41 AM Ashli Machado MA Not being able to stop or co ntrol worrying 0 04/03/2025 11:41 AM Ashli Machado MA Worrying too much about diff erent things 1 04/03/2025 11:41 AM Ashli Machado MA Trouble relaxing 0 04/03/2025 11:41 AM Ashli Machado MA Being so restless that it is hard to sit still 1 04/03/2025 11:41 AM Ashli Machado MA Becoming easily annoyed or irritable 0 04/03/2025 11:41 AM Ashli Machado [place] Feeling afraid as if somethi ng awful might happen 1 04/03/2025 11:41 AM Ashli Machado MA CESAR-7 Total Score 3 04/03/2025 11:41 AM Ashli Machado [place] documented as of this encounter Plan of Treatment Upcoming Encounters Date Type Department Care Team (Gi pressley Contact Info) Description 05/14/2025 9:45 AM EDT Office Visit [facility] MEDICINE 230 [place] [address] documented as of this encounter Goals Goal [...] documented as of this encounter Care Teams Gis Specialist Relationship Specialty Start Date End Date Mackenzie Estrada MD 230 [place] [address] PCP - General Family Medicine 07/10/20 Ruth Ann Price 03/29/25 04/03/25 Hemalatha Pretty Leak Gang SupervisorEvaluation Analyst 01/02/25 documented as of this encounter
--- OUTSIDE RECORDS SUMMARY | 2025-04-04 11:21 | XMS_ITS | Encounter Summary ---
Author Organization [employer] Address [address] [facility] 7t [place] [address] Care Team Providers Care Electronic Wirer Name Role Phone Mackenzie Estrada MD Primary Care Provider [phone] Casper Magaña RN Unavailable [phone] Ruth Ann Price Unavailable Unavailable Ruth Ann Price Unavailable Ruth Ann Price Unavailable Reason for Visit * Reason Comments Med Refill Encounter Details Date Type Department Care Team (Late st Contact Info) Description 07/27/2023 Refill [facility] MEDICINE [address] [place] [address] Name, MD Mark [address] [place] [address] Pain in both hands Social History Tobacco [...] Description 05/14/2025 9:45 AM EDT Office Visit [facility] MEDICINE 230 [place] [address] documented as of this encounter Goals Goal Patient Goal Type Associated Problems Recent Progress Patient-Stated? Author Quit using tobacco (cigarettes, smokeless, etc) Tobacco Use Corey Cornell, PharmD documented as of this encounter Visit Diagnoses Diagnosis Pain in both hands documented in this encounter Care Teams Electronic Wirer Relationship Specialty Start Date End Date Mackenzie Estrada MD 230 [place] [address] PCP - General Family Medicine 07/10/20 Casper Magaña, JENNIFER [address] [place] [address] Registered Nurse Family Medicine 01/18/25 01/18/25 Ruth Ann Price 02/19/25 02/19/25 Ruth Ann Price 02/19/25 02/28/25 Ruth Ann Price 03/29/25 04/03/25 Hemalatha Pretty Router SetterRooms Director 01/02/25 documented as of this encounter
--- OUTSIDE RECORDS SUMMARY | 2025-04-04 11:21 | XMS_ITS | Encounter Summary ---
Author Organization [employer] Address [address] [facility] [address] 7t [place] [address] Care Team Providers Care Rehab Aide Name Role Phone Mackenzie Estrada MD Primary Care Provider [phone] Casper Magaña RN Unavailable [phone] Ruth nAn Price Unavailable Unavailable Ruth Ann Price Unavailable Ruth Ann Price Unavailable Encounter Details Date Type Department Care Team (Late st Contact Info) Description 04/10/2024 Orders Only [facility] MEDICINE [address] [place] [address] Mackenzie Estrada MD 230 [place] [address] Social History Tobacco Use Types Packs/Day Years [...] AM EDT Office Visit [facility] [address] [place] [address] documented as of this encounter Goals Goal Patient Goal Type Associated Problems Recent Progress Patient-Stated? Author Quit using tobacco (cigarettes, smokeless, etc) Tobacco Use Corey Cornell, KelechiD documented as of this encounter Visit Diagnoses Not on filedocumented in this encounter Care Teams Rehab Aide Relationship Specialty Start Date End Date Mackenzie Estrada MD [address] [place] [address] PCP - General Family Medicine 07/10/20 Casper Magaña, JENNIFER [address] [place] [address] Registered Nurse Family Medicine 01/18/25 01/18/25 Ruth Ann Price 02/19/25 02/19/25 Ruth Ann Price 02/19/25 02/28/25 Ruth Ann Price 03/29/25 04/03/25 Hemalatha Pretty Head Field Hockey CoachStrip Machine Operator 01/02/25 documented as of this encounter
--- OUTSIDE RECORDS SUMMARY | 2025-04-04 11:21 | XMS_ITS | Encounter Summary ---
Author Organization [employer] Address [address] [facility] [address] 7t [place] [address] Care Team Providers Care Datapower Developer Name Role Phone Mackenzie Estrada MD Primary Care Provider [phone] Casper Magaña RN Unavailable [phone] Ruth Ann Price Unavailable Unavailable Ruth Ann Price Unavailable Ruth Ann Price Unavailable Encounter Details Date Type Department Care Team (Late st Contact Info) Description 05/10/2024 Orders Only [facility] MEDICINE 230 [place] [address] Mackenzie Estrada MD 230 [place] [address] Social History Tobacco Use Types Packs/Day Years [...] Description 05/14/2025 9:45 AM EDT Office Visit [facility] MEDICINE [address] [place] [address] documented as of this encounter Goals Goal [...] documented as of this encounter Care Teams Datapower Developer Relationship Specialty Start Date End Date Mackenzie Estrada MD [address] [place] [address] PCP - General Family Medicine 07/10/20 Casper Magaña RN [address] [place] [address] Registered Nurse Family Medicine 01/18/25 01/18/25 Ruth Ann Price 02/19/25 02/19/25 Ruth Ann Price 02/19/25 02/28/25 Ruth Ann Price 03/29/25 04/03/25 Hemalatha Pretty Hide House SupervisorWrap Turner 01/02/25 documented as of this encounter
--- OUTSIDE RECORDS SUMMARY | 2025-04-04 11:21 | XMS_ITS | Encounter Summary ---
Author Organization [employer] Address [address] [facility] 7t [place] [address] Care Team Providers Care Oil Bay Technician Name Role Phone Mackenzie Estrada MD Primary Care Provider Casper Magaña RN Unavailable [phone] Ruth Ann Price Unavailable Unavailable Ruth Ann Price Unavailable Ruth Ann Price Unavailable Reason for Visit * Reason Comments Med Refill Encounter Details Date Type Department Care Team (Late st Contact Info) Description 06/03/2023 Refill [facility] MEDICINE 230 [place] [address] Mackenzie Estrada MD [address] [place], [place] [id number] Pain in both hands Social History Tobacco [...] Description 05/14/2025 9:45 AM EDT Office Visit [facility] MEDICINE [address] [place] [address] documented as of this encounter Goals Goal Patient Goal Type Associated Problems Recent Progress Patient-Stated? Author Quit using tobacco (cigarettes, smokeless, etc) Tobacco Use Corey Cornell, PharmD documented as of this encounter Visit Diagnoses Diagnosis Pain in both hands documented in this encounter Care Teams Oil Bay Technician Relationship Specialty Start Date End Date Mackenzie Estrada MD [address] [place] [address] PCP - General Family Medicine 07/10/20 Casper Magaña, JENNIFER [address] [place] [address] Registered Nurse Family Medicine 01/18/25 01/18/25 Ruth Ann Price 02/19/25 02/19/25 Ruth Ann Price 02/19/25 02/28/25 Ruth Ann Price 03/29/25 04/03/25 Hemalatha Pretty Covering Machine TenderElectronic Assembler 01/02/25 documented as of this encounter
--- OUTSIDE RECORDS SUMMARY | 2025-04-04 11:21 | XMS_ITS | Encounter Summary ---
Author Organization [employer] Address 75 [facility] 7t [place] [address] Care Team Providers Care Curber Name Role Phone Mackenzie Estrada MD Primary Care Provider [phone] Casper Magaña RN Unavailable [phone] Ruth Ann Price Unavailable Unavailable Ruth Ann Price Unavailable Ruth Ann Price Unavailable Reason for Visit * Reason Onset Date Comments Triage 11/10/2022 Encounter Details Date Type Department Care Team ([facility] st Contact Info) Description 11/10/2022 Telephone [facility] MEDICINE [address] [place] [address] Mackenzie Estrada MD [address] [place] [address] Triage Social History Tobacco Use Types Packs/Day [...] - 11/11/2022 11:10 AM EDT TC to [phone] via My Point...Exactly interpreters in regards to below message. Pt reports she went to [facility] since [facility] did not return her call. RN informed pt triage nurses attempted to call pt x2 however pt did not answer. RN reviewed [facility] ED note and pt presented [...] however she has not been able to sisal picker the nystatin medication because [facility] [...] if it was received and ready for sisal picker. Pt verbalized understanding. RN advised pt if her rash does not resolve with medication and her pain does not resolve to call [facility] to schedule an appt for further evaluation. Pt verbalized understanding. Pt to F/U PRN. RN has printed ED note and placed in scan bin * Telephone Encounter - Chika Ingram LPN - 11/10/2022 2:30 PM EDT Triage call returned to patient with [employer] market reporter [phone] to listed number x 2 no answer. Left message to return call to [phone]. Team Nurses tasked to follow with patient [...] [facility] MEDICINE [address] [place] [address] documented as of this encounter Visit Diagnoses Not on filedocumented in this encounter Care Teams Curber Relationship Specialty Start Date End Date Mackenzie Estrada MD [address] [place] [address] PCP - General Family Medicine 07/10/20 Casper Magaña, JENNIFER [address] [place] [address] Registered Nurse Family Medicine 01/18/25 01/18/25 Ruth Ann Price 02/19/25 02/19/25 Ruth Ann Price 02/19/25 02/28/25 Ruth Ann Price 03/29/25 04/03/25 Hemalatha Pretty Sales ExhibitorPatent Prosecution Paralegal 01/02/25 documented as of this encounter
--- OUTSIDE RECORDS SUMMARY | 2025-04-04 11:21 | XMS_ITS | Encounter Summary ---
Author Organization [employer] Address [address] [facility] 7t [place] [address] Care Team Providers Care Insulation Technician Name Role Phone Mackenzie Estrada MD Primary Care Provider [phone] Casper Magaña RN Unavailable [phone] Ruth Ann Price Unavailable Unavailable Ruth Ann Price Unavailable Ruth Ann Price Unavailable Reason for Visit * Reason Comments Med Refill Encounter Details Date Type Department Care Team (Late st Contact Info) Description 07/26/2023 Refill [facility] MEDICINE 230 [place] [address] Name, MD Mark [address] [place] [address] Pain in both hands Social History Tobacco [...] Visit [facility] MEDICINE [address] [place] [address] documented as of this encounter Goals Goal Patient Goal Type Associated Problems Recent Progress Patient-Stated? Author Quit using tobacco (cigarettes, smokeless, etc) Tobacco Use Corey Cornell, PharmD documented as of this encounter Visit Diagnoses Diagnosis Pain in both hands documented in this encounter Care Teams Insulation Technician Relationship Specialty Start Date End Date Mackenzie Estrada MD [address] [place] [address] PCP - General Family Medicine 07/10/20 Casper Magaña, JENNIFER [address] [place] [address] Registered Nurse Family Medicine 01/18/25 01/18/25 Ruth Ann Price 02/19/25 02/19/25 Ruth Ann Price 02/19/25 02/28/25 Ruth Ann Price 03/29/25 04/03/25 Hemalatha Pretty Mixer HelperSpice Mixer 01/02/25 documented as of this encounter
--- OUTSIDE RECORDS SUMMARY | 2025-04-04 11:21 | XMS_ITS | Encounter Summary ---
Author Organization [employer] Address [address] [facility] 7t [place] [address] Care Team Providers Care Pick Up Name Role Phone Mackenzie Estrada MD Primary Care Provider [phone] Casper Magaña RN Unavailable Ruth Ann Price Unavailable Unavailable Ruth Ann Price Unavailable Ruth Ann Price Unavailable Reason for Visit * Reason Onset Date Comments Hospital Follow-up 02/24/2024 Encounter Details Date Type Department Care Team ([facility] st Contact Info) Description 02/24/[address] [facility] MEDICINE [address] [place], [place] [phone] Mackenzie Estrada MD [address] [place], [place] [phone] Hospital Follow-up Social History Tobacco Use Types [...] from pt requesting a HDF appt. Hospital: [facility] Date of admission: 02/19 Discharge date: 02/23 Diagnosed: Rectal Bleeding Bulgarian Speaker documented in this encounter Plan of Treatment Upcoming Encounters Date Type Department Care Team (Late st Contact Info) Description 05/14/2025 9:45 AM EDT Office Visit [facility] MEDICINE [address] [place] [address] documented as of this encounter Goals Goal Patient Goal Type Associated Problems Recent Progress Patient-Stated? Author Quit using tobacco (cigarettes, smokeless, etc) Tobacco Use No Corey Lin, KelechiD documented as of this encounter Visit Diagnoses Not on filedocumented in this encounter Care Teams Pick Up Relationship Specialty Start Date End Date Mackenzie Estrada MD [address] [place] [address] PCP - General Family Medicine 07/10/20 Casper Magaña, RN [address] [place] [address] Registered Nurse Family Medicine 01/18/25 01/18/25 Ruth Ann Price 02/19/25 02/19/25 Ruth Ann Price 02/19/25 02/28/25 Ruth Ann Price 03/29/25 04/03/25 Hemalatha Pretty Director Patient Financial ServicesService Technician 01/02/25 documented as of this encounter
--- OUTSIDE RECORDS SUMMARY | 2025-04-04 11:21 | XMS_ITS | Encounter Summary ---
Author Organization [employer] Address [address] [facility] 7t [place] [address] Care Team Providers Care Crotch Breaker Name Role Phone Mackenzie Estrada MD Primary Care Provider [phone] Casper Magaña RN Unavailable [phone] Ruth Ann Price Unavailable Unavailable Ruth Ann Price Unavailable Ruth Ann Price Unavailable Reason for Visit * Reason Onset Date Comments Appointment Request 08/16/2023 Encounter Details Date Type Department Care Team ([facility] st Contact Info) Description 08/16/2023 Telephone [facility] MEDICINE 230 [place], [place] [phone] Mackenzie Estrada MD 230 [place], [place] [phone] Appointment Request Social History Tobacco Use Types [...] be seen today. Please contact pt @ [phone] Bruneian Speaker documented in this encounter Plan of Treatment Upcoming Encounters Date Type Department Care Team (Late st Contact Info) Description 05/14/2025 9:45 AM EDT Office Visit [facility] MEDICINE [address] [place] [address] documented as of this encounter Goals Goal Patient Goal Type Associated Problems Recent Progress Patient-Stated? Author Quit using tobacco (cigarettes, smokeless, etc) Tobacco Use No Corey Lin, PharmD documented as of this encounter Visit Diagnoses Not on filedocumented in this encounter Care Teams Crotch Breaker Relationship Specialty Start Date End Date Mackenzie Estrada MD [address] [place] [address] PCP - General Family Medicine 07/10/20 Casper Magaña, JENNIFER [address] [place] [address] Registered Nurse Family Medicine 01/18/25 01/18/25 Ruth Ann Price 02/19/25 02/19/25 Ruth Ann Price 02/19/25 02/28/25 Ruth Ann Price 03/29/25 04/03/25 Hemalatha Pretty Clerical OfficeGynecologist 01/02/25 documented as of this encounter
--- OUTSIDE RECORDS SUMMARY | 2025-04-04 11:21 | XMS_ITS | Encounter Summary ---
Author Organization [employer] Address 75 [facility] 7t [place] [address] Care Team Providers Care Bush Hog Operator Name Role Phone Mackenzie Estrada MD Primary Care Provider [phone] Casper Magaña RN Unavailable [phone] Ruth Ann Price Unavailable Unavailable Ruth Ann Price Unavailable Ruth Ann Price Unavailable Reason for Visit * Reason Comments Med Refill Encounter Details Date Type Department Care Team (Late st Contact Info) Description 07/20/2024 Refill [facility] MEDICINE [address] [place] [address] Mackenzie Estrada MD [address] [place] [address] 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 ([facility]) Social History Tobacco Use Types [...] 05/14/2025 9:45 AM EDT Office Visit [facility] MEDICINE [address] [place] [address] documented as of this encounter Goals Goal [...] documented as of this encounter Care Teams Bush Hog Operator Relationship Specialty Start Date End Date Mackenzie Estrada MD [address] [place] [address] PCP - General Family Medicine 07/10/20 Casper Magaña, RN [address] [place] [address] Registered Nurse Family Medicine 01/18/25 01/18/25 Ruth Ann Price 02/19/25 02/19/25 Ruth Ann Price 02/19/25 02/28/25 Ruth Ann Price 03/29/25 04/03/25 Hemalatha Pretty Material ExpediterAquatic Centre Manager 01/02/25 documented as of this encounter
--- OUTSIDE RECORDS SUMMARY | 2025-04-04 11:21 | XMS_ITS | Encounter Summary ---
Author Organization [employer] Address 75 [facility] 7t [place] [address] Care Team Providers Care Dramatic Critic Name Role Phone Mackenzie Estrada MD Primary Care Provider [phone] Casper Magaña RN Unavailable [phone] Ruth Ann Price Unavailable Unavailable Ruth Ann Price Unavailable Ruth Ann Price Unavailable Reason for Visit * Reason Comments Med Refill Encounter Details Date Type Department Care Team (Late st Contact Info) Description 06/01/[address] [facility] MEDICINE [address] [place] [address] Mackenzie Estrada MD [address] [place], [place] [phone] Pain in both hands Social History Tobacco [...] EDT Office Visit [facility] MED[facility]INE [address] [place] [address] documented as of this encounter Goals Goal Patient Goal Type Associated Problems Recent Progress Patient-Stated? Author Quit using tobacco (cigarettes, smokeless, etc) Tobacco Use Corey Cornell, PharmD documented as of this encounter Visit Diagnoses Diagnosis Pain in both hands documented in this encounter Care Teams Dramatic Critic Relationship Specialty Start Date End Date Mackenzie Estrada MD [address] [place] [address] PCP - General Family Medicine 07/10/20 Casper Magaña, JENNIFER [address] [place] [address] Registered Nurse Family Medicine 01/18/25 01/18/25 Ruth Ann Price 02/19/25 02/19/25 Ruth Ann Price 02/19/25 02/28/25 Ruth Ann Price 03/29/25 04/03/25 Hemalatha Pretty Lead InvestigatorConfiguration Specialist 01/02/25 documented as of this encounter
--- OUTSIDE RECORDS SUMMARY | 2025-04-04 11:21 | XMS_ITS ---
Author Organization [employer] Address 75 [facility] 7 [place] [address] Care Team Providers Care Director Corporate Compliance Name Role Phone Mackenzie Estrada MD Primary Care Provider [phone] [facility] Complex Status:Closed (Closed) Start date:03/29/2025 Enrollment reason:ADT Feed End date:04/03/2025 Close reason:Transferred to Community Partner Overview ADT CP assigned- [facility] ED 03/28/25 Continued Care and Services Coordination
--- OUTSIDE RECORDS SUMMARY | 2025-04-04 11:21 | XMS_ITS | Encounter Summary ---
Author Organization [employer] Address 75 [facility] 7t [place] [address] Care Team Providers Care Food Preservation Scientist Name Role Phone Mackenzie Estrada MD Primary Care Provider [phone] Casper Magaña RN Unavailable Ruth Ann Price Unavailable Unavailable Ruth Ann Price Unavailable Ruth Ann Price Unavailable Reason for Visit * Reason Comments Med Refill Encounter Details Date Type Department Care Team (Late st Contact Info) Description 06/02/2023 Refill [facility] MEDICINE [address] [place] [address] Mackenzie Estrada MD 230 [place], [place] [phone] Pain in both hands Social History Tobacco [...] [facility] [address] [place] [address] documented as of this encounter Goals Goal Patient Goal Type Associated Problems Recent Progress Patient-Stated? Author Quit using tobacco (cigarettes, smokeless, etc) Tobacco Use Corey Cornell, PharmD documented as of this encounter Visit Diagnoses Diagnosis Pain in both hands documented in this encounter Care Teams Food Preservation Scientist Relationship Specialty Start Date End Date Mackenzie Estrada MD [address] [place] [address] PCP - General Family Medicine 07/10/20 Casper Magaña, JENNIFER [address] [place] [address] Registered Nurse Family Medicine 01/18/25 01/18/25 Ruth Ann Price 02/19/25 02/19/25 Ruth Ann Price 02/19/25 02/28/25 Ruth Ann Price 03/29/25 04/03/25 Hemaaltha Pretty Community Coordinator For High SchoolManaged Care Specialist 01/02/25 documented as of this encounter
--- OUTSIDE RECORDS SUMMARY | 2025-04-04 11:21 | XMS_ITS | Clinical Summary ---
Author Organization [facility] Address [address] [place] [address] Support Name Relationship Address Phone Brayden Hernandez Emergency Contact [address] [place] [address] Care Team Providers Care Central Office Operator Name Role Phone Abdullahi Lizarraga MD Primary Care Provider [phone] Allergies Active Allergy Reactions Criticality Noted Date [...] age to complete this topic Care Teams Central Office Operator Relationship Specialty Start Date End Date Abdullahi Lizarraga MD [address] [place] [address] PCP - General Nephrology 03/10/18
--- OUTSIDE RECORDS SUMMARY | 2025-04-04 11:21 | XMS_ITS | Encounter Summary ---
Author Organization [employer] Address 75 [facility] 7t [place] [address] Care Team Providers Care Agricultural Mechanic Name Role Phone Mackenzie Estrada MD Primary Care Provider [phone] Casper Magaña RN Unavailable [phone] Ruth Ann Price Unavailable Unavailable Ruth Ann Price Unavailable Ruth Ann Price Unavailable Reason for Visit * Reason Comments Med Refill Encounter Details Date Type Department Care Team (Late st Contact Info) Description 07/28/2022 Refill [facility] MEDICINE [address] [place] [address] Mackenzie Estrada MD [address] [place] [address] Pain in both hands Social History Tobacco [...] Description 05/14/2025 9:45 AM EDT Office Visit [facility] MED[facility]INE [address] [place] [address] documented as of this encounter Visit Diagnoses Diagnosis Pain in both hands documented in this encounter Care Teams Agricultural Mechanic Relationship Specialty Start Date End Date Mackenzie Estrada MD [address] [place] [address] PCP - General Family Medicine 07/10/20 Casper Magaña RN [address] [place] [address] Registered Nurse Family Medicine 01/18/25 01/18/25 Ruth Ann Price 02/19/25 02/19/25 Ruth Ann Price 02/19/25 02/28/25 Ruth Ann Price 03/29/25 04/03/25 Hemalatha Pretty Telegraph Equipment MaintainerPhysiognomist 01/02/25 documented as of this encounter
--- OUTSIDE RECORDS SUMMARY | 2025-04-04 11:21 | XMS_ITS | Encounter Summary ---
Author Organization [employer] [facility] Address 75 [facility] 7t [place] [address] Care Team Providers Care Car Deliverer Name Role Phone Mackenzie Estrada MD Primary Care Provider [phone] Casper Magaña RN Unavailable [phone] Ruth Ann Price Unavailable Unavailable Ruth Ann Price Unavailable Ruth Ann Price Unavailable Encounter Details Date Type Department Care Team (Late Contact Info) Description 03/29/2023 Abstract [facility] MEDICINE [address] [place], [place] [phone] Cecilia Henriquez Social History Tobacco Use Types [...] Description 05/14/2025 9:45 AM EDT Office Visit [facility] MEDICINE [address] [place], [place] [phone] documented as of this encounter Procedures Procedure Name Priority Date/Time Associated Diagnosis Comments HM COLONOSCOPY Routine 10/28/2017 documented in this encounter Results * Colonoscopy (10/28/2017) Colonoscopy Normal Normal Narrative Cecilia Henriquez - 10/28/2017 Recommended 10 year follow [place] [place] Historical Provider HEALTH MAINTENANCE Edited Result - Final documented in this encounter Visit Diagnoses Not on filedocumented in this encounter Care Teams Car Deliverer Relationship Specialty Start Date End Date Mackenzie Estrada MD [address] [place] [address] PCP - General Family Medicine 07/10/20 Casper Magaña, JENNIFER [address] [place] [id number] Registered Nurse Family Medicine 01/18/25 01/18/25 Ruth Ann Price 02/19/25 02/19/25 Ruth Ann Price 02/19/25 02/28/25 Ruth Ann Price 03/29/25 04/03/25 Hemalatha Pretty Animal Control SupervisorFur Dyer 01/02/25 documented as of this encounter
--- OUTSIDE RECORDS SUMMARY | 2025-04-04 11:21 | XMS_ITS | Encounter Summary ---
Author Organization [employer] Address [address] [facility] [address] 7t [place] [address] Care Team Providers Care Material Cutter Name Role Phone Mackenzie Estrada MD Primary Care Provider [phone] Casper Magaña RN Unavailable [phone] Ruth Ann Price Unavailable Unavailable Ruth Ann Price Unavailable Ruth Ann Price Unavailable Encounter Details Date Type Department Care Team (Late st Contact Info) Description 06/01/2023 Orders Only [facility] MEDICINE [address] [place] [address] Mackenzie Estrada MD [address] [place] [address] Encounter for smoking cessation counseling (Primary Dx) [...] Description 05/14/2025 9:45 AM EDT Office Visit [facility] MEDICINE [address] [place] [address] documented as of this encounter Goals Goal Patient Goal Type Associated Problems Recent Progress Patient-Stated? Author Quit using tobacco (cigarettes, smokeless, etc) Tobacco Use Corey Cornell, Bailey documented as of this encounter Visit Diagnoses Diagnosis Encounter for smoking cessation counseling- Primary documented in this encounter Care Teams Material Cutter Relationship Specialty Start Date End Date Mackenzie Estrada MD [address] [place] [address] PCP - General Family Medicine 07/10/20 Casper Magaña, JENNIFER [address] [place] [address] Registered Nurse Family Medicine 01/18/25 01/18/25 Ruth Ann Price 02/19/25 02/19/25 Ruth Ann Price 02/19/25 02/28/25 Ruth Ann Price 03/29/25 04/03/25 Hemalatha Pretty Coding Compliance ManagerElectrotyper Apprentice 01/02/25 documented as of this encounter
--- OUTSIDE RECORDS SUMMARY | 2025-04-04 11:21 | XMS_ITS | Encounter Summary ---
Author Organization [employer] Address 75 [facility] 7t [place] [address] Care Team Providers Care Chain Puller Name Role Phone Mackenzie Estrada MD Primary Care Provider [phone] Ruth Ann Price Unavailable Reason for Visit * Reason Comments Care Coordination Communication to pat ient assigned CP Coordinator Encounter Details Date Type Department Care Team (Latest Contact Info) Description 04/03/2025 Patient Outreach [facility] MED & PEDS [address] [place], [place] [phone] Mackenzie Estrada MD [address] [place] [address] Care Coordination (Communication to patient assigned CP Coordinator ) Social History Tobacco Use Types Packs/Day [...] the past 12 months, has t he [employer], gas, oil or water company threatened to [...] Author Not at all 04/03/2025 11:40 AM EDT Ashli Moss MA * Trouble falling or staying asleep, or sleeping too much Answer Date of Assessment Author Several days 04/03/2025 11:40 AM EDT Ashli Moss MA * Feeling tired or [...] Moss MA documented as of this encounter Progress Notes * Ruth Ann Price - 04/03/2025 1:37 PM EDT Sujata, I am writing to you as our records indicate that the following patient is engaged in your program: Patient Ginette Leon 77 .This email is to notify you that we have received notification that the patient went to [facility] ED on 03/28/25 . The patient has been successfully outreached by the health frazee's triage nurse for a status check. Pt states that did not have an imaging, blood work or other studies. Pt states did have mild swelling and warmth to bilateral elbows If there are any questions or concerns, please feel free to reach out to me. Thank You documented in this encounter Plan of Treatment Upcoming Encounters Date Type Department Care Team (Late st Contact Info) Description 05/14/2025 9:45 AM EDT Office Visit [facility] MEDICINE [address] [place] [address] documented as of this encounter Goals Goal Patient Goal Type Associated Problems Recent Progress Patient-Stated? Author Quit using tobacco (cigarettes, smokeless, etc) Tobacco Use Corey Cornell, PharmD documented as of this encounter Visit Diagnoses Not on filedocumented in this encounter Additional Health Concerns Assessment Noted Time PHQ-9 Depression Total Score: 6 04/03/20 11:40 AM EDT documented as of this encounter Care Teams Chain Puller Relationship Specialty Start Date End Date Mackenzie Estrada MD [address] [place] [address] PCP - General Family Medicine 07/10/20 Ruth Ann Price 03/29/25 04/03/25 Hemalatha Pretty Local Area Network Systems AdminstratorJunior Designer 01/02/25 documented as of this encounter
--- OUTSIDE RECORDS SUMMARY | 2025-04-04 11:21 | XMS_ITS | Encounter Summary ---
Author Organization [employer] Address 75 [facility] 7t [place] [address] Care Team Providers Care Rail Transportation Operator Name Role Phone Mackenzie Estrada MD Primary Care Provider [phone] Casper Magaña RN Unavailable [phone] Ruth Ann Price Unavailable Unavailable Ruth Ann Price Unavailable Ruth Ann Price Unavailable Reason for Visit * Reason Comments Med Refill Encounter Details Date Type Department Care Team (Late st Contact Info) Description 01/12/2024 Refill [facility] MEDICINE [address] [place] [address] Mackenzie Estrada MD [address] [place] [address] Rheumatoid arthritis involving multiple sites with positive rheumatoid factor ([facility]) Social History Tobacco Use Types Packs/Day Years [...] Description 05/14/2025 9:45 AM EDT Office Visit [facility] MEDICINE [address] [place] [address] documented as of this encounter Goals Goal Patient Goal Type Associated Problems Recent Progress Patient-Stated? Author Quit using tobacco (cigarettes, smokeless, etc) Tobacco Use No Corey Lin, PharmD documented as of this encounter Visit Diagnoses Diagnosis Rheumatoid arthritis involving multiple sites with positive rheumatoid factor ([facility]) documented in this encounter Care Teams Rail Transportation Operator Relationship Specialty Start Date End Date Mackenzie Estrada MD [address] [place] [address] PCP - General Family Medicine 07/10/20 Casper Magaña, RN [address] [place] [address] Registered Nurse Family Medicine 01/18/25 01/18/25 Ruth Ann Price 02/19/25 02/19/25 Ruth Ann Price 02/19/25 02/28/25 Ruth Ann Price 03/29/25 04/03/25 Hemalatha Pretty Supervisor Home Energy ConsultantSenior Manager Creative Services 01/02/25 documented as of this encounter
--- OUTSIDE RECORDS SUMMARY | 2025-04-04 11:21 | XMS_ITS | Encounter Summary ---
Author Organization [employer] Address 75 [facility] 7t [place] [address] Care Team Providers Care Support Worker Name Role Phone Mackenzie Estrada MD Primary Care Provider [phone] Ruth Ann Price Unavailable Reason for Visit * Reason Onset Date Comments CHART PREP 04/02/2025 Encounter Details Date Type Department Care Team ([facility] Contact Info) Description 04/02/2025 Telephone [facility] MEDICINE [address] [place] [address] Sisi Kennedy FNP [address] [place] [address] CHART PREP Social History Tobacco Use Types Packs/Day Years [...] the past 12 months, has t he [employer], gas, oil or water [employer] threatened to shut off services in your [...] encounter Miscellaneous Notes * Telephone Encounter - Antoinette Savage MA - 04/02/2025 11:11 AM EDT Chart Prep Labs: not applicable Images: not applicable Referrals: not applicable Vaccines due: Covid and Zoster Screenings: mammogram Overdue care gaps: PHQ-9 and CESAR-7 ED notes in chart under media documented in this encounter Plan of Treatment Upcoming Encounters Date Type Department Care Team (Late st Contact Info) Description 05/14/2025 9:45 AM EDT Office Visit [facility] MEDICINE [address] [place] [address] documented as of this encounter Goals Goal [...] documented as of this encounter Care Teams Support Worker Relationship Specialty Start Date End Date Mackenzie Estrada MD [address] [place] [address] PCP - General Family Medicine 07/10/20 Ruth Ann Price 03/29/25 04/03/25 Hemalatha Pretty Hand Almond BlancherConveyor Console Operator 01/02/25 documented as of this encounter
--- OUTSIDE RECORDS SUMMARY | 2025-04-04 11:21 | XMS_ITS | Encounter Summary ---
Author Organization [employer] Address [address] [facility] [address] 7t [place] [address] Care Team Providers Care Guest Services Attendant Name Role Phone Mackenzie Estrada MD Primary Care Provider [phone] Casper Magaña RN Unavailable [phone] Ruth Ann Price Unavailable Unavailable Ruth Ann Price Unavailable Ruth Ann Price Unavailable Encounter Details Date Type Department Care Team (Late st Contact Info) Description 05/21/2024 Telephone [facility] MEDICINE [address] [place] [address] Mackenzie Estrada MD [address] [place] [address] Social History Tobacco Use Types Packs/Day Years [...] [facility] MEDICINE [address] [place] [address] documented as of this encounter Goals Goal [...] documented as of this encounter Care Teams Guest Services Attendant Relationship Specialty Start Date End Date Mackenzie Estrada MD [address] [place] [address] PCP - General Family Medicine 07/10/20 Casper Magaña RN [address] [place] [address] Registered Nurse Family Medicine 01/18/25 01/18/25 Ruth Ann Price 02/19/25 02/19/25 Ruth Ann Price 02/19/25 02/28/25 Ruth Ann Price 03/29/25 04/03/25 Hemalatha Pretty Telegraph Office Route AideEc Teacher 01/02/25 documented as of this encounter
--- OUTSIDE RECORDS SUMMARY | 2025-04-04 11:21 | XMS_ITS | Encounter Summary ---
Author Organization [employer] Address 75 [facility] 7t [place] [address] Care Team Providers Care Rim Fire Charger Operator Name Role Phone Mackenzie Estrada MD Primary Care Provider [phone] Casper Magaña RN Unavailable [phone] Ruth Ann Price Unavailable Unavailable Ruth Ann Price Unavailable Ruth Ann Price Unavailable Reason for Visit * Reason Comments Med Refill Encounter Details Date Type Department Care Team (Late st Contact Info) Description 07/21/2023 Refill [facility] MEDICINE [address] [place] [address] Name, MD Mark [address] [place] [address] Pain in both hands Social History Tobacco [...] Description 05/14/2025 9:45 AM EDT Office Visit [facility] MEDICINE [address] [place] [address] documented as of this encounter Goals Goal Patient Goal Type Associated Problems Recent Progress Patient-Stated? Author Quit using tobacco (cigarettes, smokeless, etc) Tobacco Use Corey Cornell, PharmD documented as of this encounter Visit Diagnoses Diagnosis Pain in both hands documented in this encounter Care Teams Rim Fire Charger Operator Relationship Specialty Start Date End Date Mackenzie Estrada MD [address] [place] [address] PCP - General Family Medicine 07/10/20 Casper Magaña, JENNIFER [address] [place] [address] Registered Nurse Family Medicine 01/18/25 01/18/25 Ruth Ann Price 02/19/25 02/19/25 Ruth Ann Price 02/19/25 02/28/25 Ruth Ann Price 03/29/25 04/03/25 Hemalatha Pretty Agricultural ChemistEnvelope Maker 01/02/25 documented as of this encounter
--- OUTSIDE RECORDS SUMMARY | 2025-04-04 11:21 | XMS_ITS | Encounter Summary ---
Author Organization [employer] Address 75 [facility] 7t [place] [address] Care Team Providers Care Usps Letter Carrier Name Role Phone Mackenzie Estrada MD Primary Care Provider [phone] Casper Magaña RN Unavailable [phone] Ruth Ann Price Unavailable Unavailable Ruth Ann Price Unavailable Ruth Ann Price Unavailable Reason for Visit * Reason Onset Date Comments Error 08/16/2023 Encounter Details Date Type Department Care Team ([facility] st Contact Info) Description 08/16/2023 Telephone [facility] MEDICINE [address] [place], [place] [phone] Mackenzie Estrada MD [address] [place], [place] [phone] Error Social History Tobacco Use Types Packs/Day [...] 9:45 AM EDT Office Visit [facility] MEDICINE [address] [place] [address] documented as of this encounter Goals Goal Patient Goal Type Associated Problems Recent Progress Patient-Stated? Author Quit using tobacco (cigarettes, smokeless, etc) Tobacco Use Corey Cornell, Bailey documented as of this encounter Visit Diagnoses Not on filedocumented in this encounter Care Teams Usps Letter Carrier Relationship Specialty Start Date End Date Mackenzie Estrada MD [address] [place] [address] PCP - General Family Medicine 07/10/20 Casper Magaña, JENNIFER [address] [place] [address] Registered Nurse Family Medicine 01/18/25 01/18/25 Ruth Ann Price 02/19/25 02/19/25 Ruth Ann Price 02/19/25 02/28/25 Ruth Ann Price 03/29/25 04/03/25 Hemalatha Pretty Mental Health TechnicianHead Boys Golf Coach 01/02/25 documented as of this encounter
[2025-04-04 11:25] LABS: Appearance Urine Clear; Glucose Urine UA Negative (Negative); PH 5.0 (5.0-9.0); Specific Gravity - Urine 1.020 (1.005-1.025)
[2025-04-04 11:29] LABS: Hematocrit 39.1 % (37.0-47.0); Hemoglobin 13.0 g/dl (12.0-16.0); Imm Gran Abs Auto 0.02 X10*3/uL (0.00-0.03); Imm Gran Pct Auto 0.4 % (0.0-0.4); Lymphocytes Absolute Auto 2.4 X10*3/uL (1.2-4.9); Mean Corpuscular HGB Conc 33.2 g/dl (31.0-35.0); Mean Corpuscular Hemoglobin 30.7 pg (27.0-33.0); Mean Corpuscular Volume 92.4 fL (80.0-98.0); NRBC Abs Auto 0.000 X10*3/uL (0.0-0.012); NRBC Pct Auto 0.0 /100WBC (0.0-0.2); Platelet Count 241 X10*3/uL (160-400); Red Blood Count 4.23 X10*6/uL (4.20-5.50); White Blood Count 5.0 X10*3/uL (4.8-10.8)
[2025-04-04 11:30] LABS: Hematocrit 39.7 % (37.0-47.0); Hemoglobin 13.0 g/dl (12.0-16.0); Imm Gran Abs Auto 0.01 X10*3/uL (0.00-0.03); Imm Gran Pct Auto 0.2 % (0.0-0.4); Lymphocytes Absolute Auto 2.4 X10*3/uL (1.2-4.9); Mean Corpuscular HGB Conc 32.7 g/dl (31.0-35.0); Mean Corpuscular Hemoglobin 30.4 pg (27.0-33.0); Mean Corpuscular Volume 93.0 fL (80.0-98.0); NRBC Abs Auto 0.000 X10*3/uL (0.0-0.012); NRBC Pct Auto 0.0 /100WBC (0.0-0.2); Platelet Count 251 X10*3/uL (160-400); Red Blood Count 4.27 X10*6/uL (4.20-5.50); White Blood Count 5.0 X10*3/uL (4.8-10.8)
[2025-04-04 11:36] LABS: Hematocrit 40.1 % (37.0-47.0); Hemoglobin 13.0 g/dl (12.0-16.0); Imm Gran Abs Auto 0.01 X10*3/uL (0.00-0.03); Imm Gran Pct Auto 0.2 % (0.0-0.4); Lymphocytes Absolute Auto 2.4 X10*3/uL (1.2-4.9); Mean Corpuscular HGB Conc 32.4 g/dl (31.0-35.0); Mean Corpuscular Hemoglobin 30.1 pg (27.0-33.0); Mean Corpuscular Volume 92.8 fL (80.0-98.0); NRBC Abs Auto 0.000 X10*3/uL (0.0-0.012); NRBC Pct Auto 0.0 /100WBC (0.0-0.2); Platelet Count 253 X10*3/uL (160-400); Red Blood Count 4.32 X10*6/uL (4.20-5.50); White Blood Count 5.1 X10*3/uL (4.8-10.8)
[2025-04-04 12:15] LABS: Alanine Aminotransferase 22 U/L (0-31); Albumin Level 4.3 g/dL (3.5-5.0); Alkaline Phosphatase 82 U/L (39-117); Anion Gap 14 (12-20); Aspartate Amino Transferase 22 U/L (5-31); Blood Urea Nitrogen 11 mg/dL (9-16); Calcium 9.7 mg/dL (8.4-10.2); Carbon Dioxide 25 mmol/L (22-29); Chloride 105 mmol/L (96-108); Estimated Glomerular Filt Rate > 60; Potassium 3.9 mmol/L (3.3-5.1); Sodium 140 mmol/L (135-145); Total Protein 8.6 g/dL (6.5-8.0)
[2025-04-04 12:19] LABS: Uric Acid 6.3 mg/dL (2.4-5.7)
== END 2025-04-04 10:08 | disposition home or self-care (01) ==
LOC: HO.HHCX 10:07
PROVIDERS: Internal Medicine Gastroenterology; Internal Medicine Medical Oncology; Registered Nurse; Student in an Organized Health Care Education/Training Program; PCP General Practice; Referring Provider Orthopaedic Surgery; Visit Provider Nurse Practitioner Primary Care
DX: M10.9 Gout, unspecified (principal); M05.9 Rheumatoid arthritis with rheumatoid factor, unspecified; R30.0 Dysuria; C81.90 Hodgkin lymphoma, unspecified, unspecified site; B99.9 Unspecified infectious disease
CPT/HCPCS: 36415; 73080; 80053; 80076; 81003; 82248; 83615; 84550; 85025

== ENCOUNTER 2025-04-04 10:09 | Outpatient (REF) | payer MEDICAID, SELFPAY | END 2025-04-04 10:10 | disposition home or self-care (01) | LOC: HO.HHCL 10:09 | PROVIDERS: PCP Registered Nurse; Visit Provider Student in an Organized Health Care Education/Training Program | DX: Z13.89 Encounter for screening for other disorder (principal) ==

== ENCOUNTER → 2025-04-04 10:54 | Outpatient (BNV) | payer MEDICAID, SELFPAY | PROVIDERS: PCP General Practice; Referring Provider Orthopaedic Surgery; Visit Provider Radiology Diagnostic Radiology | DX: R22.32 Localized swelling, mass and lump, left upper limb (principal) | CPT/HCPCS: 73080 ==

== ENCOUNTER 2025-04-09 12:25 | Outpatient (REF) | payer MEDICAID, SELFPAY ==
--- OUTSIDE RECORDS SUMMARY | 2025-04-10 15:27 | XMS_ITS | Clinical Summary ---
Author Organization [employer] [facility] Address [address] [place] [address] Support Name Relationship Address Phone Brayden Hernandez Emergency Contact [address] [place] [address] Care Team Providers Care Videotape Operator Name Role Phone Abdullahi Lizarraga MD Primary Care Provider [phone] Allergies Active Allergy Reactions Criticality Noted Date [...] age to complete this topic Care Teams Videotape Operator Relationship Specialty Start Date End Date Abdullahi Lizarraga MD [address] [place] [address] PCP - General Nephrology 03/10/18
--- OUTSIDE RECORDS SUMMARY | 2025-04-10 15:27 | XMS_ITS | Clinical Summary ---
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 terminal and repeater current use of anticoagulant 0 DX:FDC current use of anticoagulant Acute deep vein thrombosis ( DVT) of brachial vein of right upper extremity ([facility] V24, [facility] V28) 05/09/2020 DX:Acute deep vein thrombos is (DVT) of brachial vein of right upper extremity (HCC) Axillary lymphadenopathy 05/09/2020 DX:Axil harvinder lymphadenopathy Gastroesophageal reflux disease 05/09/2020 DX:Gastroesophageal reflux disease Personal history of Hodgkin lymphoma 05/09/2020 DX:Personal history of Hodgkin lymphoma Recurrent major depressive d isorder in remission ([facility] V24) 05/09/2020 DX:Recurrent major depressiv e disorder in remission (HCC) Rheumatoid arthritis involvi ng multiple sites ([facility] V24, [facility] V28) 05/09/2020 DX:Rheumatoid arthritis invo lving multiple sites (HCC) Hodgkin's disease, nodular s clerosis, of lymph nodes of multiple sites ([facility] V24, [facility] V28) DX:Hodgkin's disease, nodul ar sclerosis, [...] age to complete this topic Care Teams Therapeutic Case Manager Relationship Specialty Start Date End Date Sanjay Cruz MD [address] [place] [phone] PCP - General Internal Medicine 04/09/20
== END 2025-04-09 12:26 | disposition home or self-care (01) ==
LOC: HO.HHCLNP 12:25
PROVIDERS: Visit Provider Emergency Medicine
DX: R22.32 Localized swelling, mass and lump, left upper limb (principal)
CPT/HCPCS: 87070; 87205

== ENCOUNTER 2025-04-17 10:44 | Outpatient (AMB) | payer MEDICAID, SELFPAY ==
--- NOTE | 2025-04-17 11:24 | A.OFFVIS_ITS ---
Vital Signs 04/17/25 11:29 Height 5 ft 6 in Weight 191 lb 5.78 oz BMI 30.9 BP 115/64 Blood Pressure Location Lt brachial Position Sitting Pulse 67 Pulse Source Pulse Oximeter Pulse Oximetry (%) 97 Oxygen Delivery Method Room Air Intake Visit Reasons: 1 month Intake Note: Patient presents for RA follow up. Lay Ups Assembler Required: Yes Lay Ups Assembler Language: Blast Furnace Tender Services: Lay Ups Assembler Present Lay Ups Assembler Name: Rj Go Information Interpreted: non-clinical & clinical Allergies almond (ALMONDS) Allergy (Severe, Verified 04/17/25 11:29) ANAPHYLAXIS adhesive tape (ADHESIVE TAPE) Allergy (Intermediate, Verified 04/17/25 11:29) RASH morphine (MORPHINE) Allergy (Intermediate, Verified 04/17/25 11:29) GI UPSET, difficulty breathing leflunomide Adverse Reaction (Intermediate, Verified 04/17/25 11:29) twitching tramadol (TRAMADOL) Adverse Reaction (Unknown, Verified 04/17/25 11:29) NAUSEA & VOMITING Medication List - Last Reconciled 04/17/25 by Bridget Corley MD acetaminophen (Tylenol Extra Strength) 1,000 mg (2 x 500 mg) PO Q8H PRN albuterol sulfate 90 mcg/actuation 2 puffs inhalation Q6H PRN alprazolam 1 mg PO BEDTIME PRN apixaban (Eliquis) 5 mg PO BID ascorbic acid (vitamin C) (Vitamin C) 1,000 mg (2 x 500 mg) PO QAM atorvastatin 80 mg PO DAILY cetirizine 10 mg PO QAM cholecalciferol (vitamin D3) (Vitamin D3) 25 mcg PO DAILY clopidogrel 75 mg PO DAILY cyclobenzaprine 5 mg PO TID PRN 7 days docusate sodium 100 mg PO BID famotidine 20 mg PO BID ferrous sulfate 325 mg PO QAM gabapentin 400 mg PO TID metoprolol succinate ER 50 mg PO DAILY nicotine 1 patch topical QAM prednisone 5 mg PO DAILY risperidone 0.5 mg PO DAILY PRN sertraline (Zoloft) 75 mg PO DAILY sulfamethoxazole-trimethoprim 400-80 mg (Bactrim) 1 tab PO DAILY trazodone 150 mg PO BEDTIME PRN umeclidinium 62.5 mcg/actuation (Incruse Ellipta) 1 inh inhalation DAILY ursodiol 250 mg PO BID vitamin A 1 cap PO QAM HPI Comments Details: Patient is a 49-year-old female with hypertension complicated by NSTEMI status post stenting with ischemic cardiomyopathy, hyperlipidemia complicated by peripheral arterial disease, unprovoked DVT on Eliquis, seropositive nodular rheumatoid arthritis complicated by left femur avascular necrosis secondary to prednisone use and fibromyalgia Interval History: Patient last seen 03/08/25 with me. - On Actemra 8mg every 4 weeks and Mtx 25mg weekly PO - Here for urgent visit for flare - Hands swollen - Nodules on elbows with evidence of infection - Has been having fevers at home - Sent to the ED Today - On Actemra 8mg every 4 weeks and Mtx 25mg weekly PO - Received antibiotics and did home remedies for her elbows with improvement - Restarted her infusions and has improvement in her joints and swelling - Complaining of right lateral hip pain and right knee pain today Rheumatologic History: Seropositive nodular RA RF++CCP++ On prednisone throughout until it was discontinued 10/2023 due to left femur avascular necrosis methotrexate and hydroxychloroquine ?2019 Xeljanz 05/2020-08/2020(ineffective) 2020 methotrexate and Humira (HCQ stopped - ?vision changes). 06/2022 Humira stopped due to poor repsonse 06/2022 methotrexate and Actemra 12/2022: Actemra SC stopped by the patient. She had some leg swelling as well. 03/10/2023 and 03/24/23: 1 g on each day rituximab administered. Had SOB associated with administration Olumiant 08/2023 effective. Stopped because she has history of DVT Leflunomide added 01/2024 ineffective and caused twitching Orencia infusions 05/2024 - 09/2024. secondary non response Actemra 10/2024 SLE January 2022: ++DsDNA positive. Rheumatoid factor and CCP antibody markedly positive. This looks more like picture of seropositive RA. Current Rheumatology Medication(s): Actemra 8mg/kg every 4 weeks Methotrexate 25 mg p.o. weekly Folic acid 1 mg daily [facility] Medical History PAD (peripheral artery disease) Skin lesion Anxiety Achilles tendinitis Superficial femoral artery occlusion Knee pain, left Depression Hx of peripheral pulmonary artery stenosis History of chemotherapy Cancer of heart Bone cancer Lung cancer Iron deficiency Seropositive rheumatoid arthritis Bleeding hemorrhoid Degeneration, intervertebral disc, lumbar Chronic GERD Degeneration of intervertebral disc at C4-C5 level Osteoarthritis of spine with radiculopathy, lumbar region Fibromyalgia Esophageal dysphagia Vitamin D deficiency Systemic lupus erythematosus Seropositive rheumatoid arthritis Rheumatoid arthritis involving multiple sites Gallstones Stress incontinence in female Nocturia Urgency-frequency syndrome De Quervain's disease (tenosynovitis) Depressive disorder Acute arthritis Hodgkin disease Surgical History History of heart surgery History of surgical removal of skin lesion (~07/13/23) History of angioplasty of vein History of biopsy H/O tubal ligation Hx of endoscopy Hx laparoscopic cholecystectomy Hx of colonoscopy History of esophagogastroduodenoscopy (EGD) History of repair of inguinal hernia History of lymph node dissection of left axilla Family History Maternal Grandmother Ovarian cancer Social History Household Members: Significant Other Housing: Apartment Are you a primary summer child caregiver to a significant other at home: No Unable to assess alcohol history related to: Unknown Alcohol intake: never Comment: son at bedside Patient Tobacco Use Status: Never used Tobacco Tobacco use type: Cigarette Cigarette Packs Per Day: 1 Cigarettes Per Day: 20.0 Substance Use Type: Marijuana Advance Directives Date on File: 02/24/24 service: No Current occupational status: disabled 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 of Systems Const Details: Review of Systems Constitutional: Denies fever, chills, weight loss ENT: Denies vision changes, eye pain or eye redness, dental caries, dry mouth GI: Denies nausea, vomiting, diarrhea, abdominal pain, change in BM Pulm: Denies SOB, VALENTIN, hemoptysis, wheezing Cards: Denies chest pain, palpitations Skin: Denies Raynaud's, rash, nail changes, photosensitivity, MANAGING PRINCIPAL: Denies headaches, weakness, paresthesias, recurrent falls MSK: as per HPI All other systems reviewed and are unremarkable except noted above Physical Exam Exam Exam: Vital signs reviewed Physical Examination CONSTITUITIONAL Patient alert and cooperative. Well appearing and in no apparent painful distress MSK Hands * Right Hand: Able to close her hands but not able to make a full fist. Diffuse swelling of the hand but only tender to palpation was the 3rd MCP. Otherwise no tenderness to palpation of the MCPs, PIPs or DIPs. Heberden's nodes noted * Left Hand: Able to close her hands but not able to make a full fist. Diffuse swelling of the hand but only tender to palpation was the 2nd MCP. Otherwise no tenderness to palpation of the MCPs, PIPs or DIPs. Heberden's nodes noted Wrists * Right Wrist: Full ROM to flexion and extension. No swelling or TTP * Left Wrist: Full ROM to flexion and extension. No swelling or TTP Elbows * Right Elbow: Full ROM. No swelling or TTP. No TTP of the medial epicondyle. No TTP of the lateral epicondyle. Healing RA nodule * Left Elbow: Full ROM. No swelling or TTP. No TTP of the medial epicondyle. No TTP of the lateral epicondyle. Healing RA nodule Shoulders * Right shoulder: Full ROM. No swelling noted. No TTP of the AC joint. No TTP of the subacromial bursa. No TTP of the posterior shoulder * Left shoulder: Full ROM. No swelling noted. No TTP of the AC joint. No TTP of the subacromial bursa. No TTP of the posterior shoulder Hip bursa: Tenderness to palpation on the right. Knees * Right knee: Decreased ROM. No swelling noted. TTP of the knee joint line. No TTP of pes anserine bursa * Left knee: Full ROM. No swelling noted. No TTP of the knee joint line. No TTP of pes anserine bursa. Ankles * Right ankle: Good ankle dorsiflexion and plantar flexion. No swelling. No TTP of the ankle joint * Left ankle: Good ankle dorsiflexion and plantar flexion. No swelling. No TTP of the ankle joint Feet * Right foot: Negative squeeze test * Left foot: Negative squeeze test Tender points? * No tenderness to palpation of the bilateral trapezius, supraspinatus, anterior costochondral junctions, bilateral suboccipital muscle insertions SKIN No rashes Vital Signs: Last Vital Signs Pulse 67 04/17/25 11:29 BP 115/64 04/17/25 11:29 Pulse Ox 97 04/17/25 11:29 Oxygen Delivery Method Room Air 04/17/25 11:29 BMI result Body Mass Index 30.9 Results Reviewed Results Reviewed: Laboratory Tests 02/18/25 04/04/25 04/16/25 08:49 10:30 08:41 WBC 4.9 RBC 4.03 L Hgb 12.2 Hct 37.3 Plt Count 204 ESR 81 H Sodium 140 Potassium 3.9 Chloride 105 Carbon Dioxide 25 BUN 11 Creatinine 0.63 AST 20 ALT 17 Laboratory Tests 02/14/24 04/11/24 11:00 10:26 Rheumatoid Factor 525.0 H Cycl Citrul Peptide IgG >250 H Laboratory Tests 10/16/24 11:22 Hepatitis A IgM Ab Nonreactive Hep Bs Antigen Negative Hep Bs Antibody NONREACTIVE Hep B Core Total Ab Nonreactive Hepatitis C Ab (EIA) Nonreactive TB Test (T-Spot) Com Negative XR Left Elbow 04/2025 FINDINGS: No acute cortical disruption or malalignment. No lytic or blastic lesions. No joint effusion. No subcutaneous emphysema. No metallic or radiopaque foreign body. IMPRESSION: Normal x-ray, left elbow. Assessment & Plan Assessment & Plan (1) Seropositive rheumatoid arthritis: Comment: RF++CCP++ On prednisone throughout until it was discontinued 10/2023 due to left femur avascular necrosis methotrexate and hydroxychloroquine ?2019 Xeljanz 05/2020-08/2020(ineffective) 2020 methotrexate and Humira(HCQ stopped - ?vision changes). 06/2022 Humira stopped due to poor repsonse 06/2022 methotrexate and Actemra 12/2022: Actemra SC stopped by the patient. She had some leg swelling as well. 03/10/2023 and 03/24/23: 1 g on each day rituximab administered Olumiant 08/2023 effective Leflunomide added 01/2024 ineffective and caused twitching Orencia infusions 05/2024 - 09/2024. Ineffective with breakthrough synovitis Actemra infusions 09/2024 Code(s): M05.9 - Rheumatoid arthritis with rheumatoid factor, unspecified Category: Medical Plan: #Seropositive RA Patient is a 49-year-old female with seropositive rheumatoid arthritis. Able to restart her Actemra infusions and this is now associated with improvement in her synovitis Elbow nodules look improved Will start to taper steroids Consider switching to SC methotrexate Plan - Actemra infusions. 8mg/kg every 4 weeks - Continue methotrexate 25mg every week split dosing - Folic acid 1 mg every day - Prednisone 15mg x 4 weeks then 10mg x 4 weeks then 5mg x 4 weeks - RTC 4 months - Labs before visit: CBC, CMP, ESR, CRP, lipid panel (2) Mass of both elbows: Code(s): R22.33 - Localized swelling, mass and lump, upper limb, bilateral Plan: #Mass of both elbows Patient with bilateral masses on elbows. Differentials include rheumatoid nodules, gouty tophus, calcium deposits, inflamed bursa. Follow up derm biopsy (3) Encounter for monitoring tocilizumab therapy: Code(s): Z51.81 - Encounter for therapeutic drug level monitoring; Z79.620 - salvage determiner (current) use of immunosuppressive biologic Plan: #Long-term Use of Tocilizumab Discussed the risks and benefits of tocilizumab with the management of this patient's rheumatic condition. ? Benefits include decreased pain, improved mortality, improved quality of life Risks include LFT abnormalities, elevated triglycerides, GI perforations Contraindicated in a patient with history of diverticulitis Monitoring: ?CBC, CMP, triglycerides (4) Encounter for methotrexate monitoring: Code(s): Z51.81 - Encounter for therapeutic drug level monitoring; Z79.631 - half-way (current) use of antimetabolite agent Plan: #Long-term Current Use of Methotrexate Discussed with patient the benefits and risks of methotrexate for managing their rheumatic condition Benefits include reduced pain, reduced mortality, maintenance of remission and reduction of flares Risks include oral ulcers, photosensitivity, hepatotoxicity, hematologic toxicity, pneumonitis, flu-like symptoms (especially day after administration), nodulosis, lymphomas ? Limit alcohol and avoid Bactrim ? Monitoring: CBC, BMP, LFTs every 3-4 months and hepatitis serologies as needed Plan I spent 30 minutes reviewing the record and labs, taking a history, examining the patient, discussing the treatment plan, ordering diagnostic work up and documenting in the medical record Orders: Orders C Reactive Protein 4 Months Z79.899 - Other skilled nursing (current) drug therapy Erythrocyte Sedimentation Rate 4 Months Z79.899 - Other skilled nursing (current) drug therapy Lipid Panel 4 Months Z79.899 - Other exterminator termite (current) drug therapy Complete Blood Count Auto Diff 4 Months Z79.899 - Other exterminator termite (current) drug therapy Comprehensive Met. Panel 4 Months Z79.899 - Other exterminator termite (current) drug t herapy Medications: New prednisone Take 15mg daily for 4 weeks then 10mg daily for 4 weeks then 5g daily for 4 weeks then stop 5 mg PO DAILY 170 tabs 0RF M05.9 - Rheumatoid arthritis with rheumatoid factor, unspecified Discontinued prednisone Discontinued Reason: Doctor's Order 20 mg PO DAILY 7 days 7 tabs 0RF prednisone Discontinued Reason: Doctor's Order 20 mg PO DAILY 30 tabs 1RF M05.9 - Rheumatoid arthritis with rheumatoid factor, unspecified Coding Level of Care Code Est Pt Level 4 (61157) Complex EM visit Add On G2211 Diagnoses Seropositive rheumatoid arthritis M05.9 Mass of both elbows R22.33 Encounter for monitoring tocilizumab therapy Z51.81; Z79.620 Encounter for methotrexate monitoring Z51.81; Z79.631
[2025-04-17 11:29] VITALS: BP 115/64; PULSE 67; O2SAT 97; BMI 30.9
--- OUTSIDE RECORDS SUMMARY | 2025-04-17 13:33 | XMS_ITS | Clinical Summary ---
Author Organization [facility] Address [address] [place] [address] Care Team Providers Care Shell Fisherman Name Role Phone Sanjay Cruz MD Primary Care Provi [facility] Surgical History Surgery Date Site/Laterality Comments OTHER SURGICAL HISTORY 05/12/2020 Right PROCEDURE: RI BX/EXC LYMPH NODE OPEN SUPERFICIAL; COMMENT: Axillary Lymph Node biopsy- Benign Lymphoid Tissue OTHER SURGICAL HISTORY 12/19/2019 Right PROCEDURE: RI BX/EXC LYMPH NODE NEEDLE SUPERFICIAL; COMMENT: Axillary Lymph node -results were non daignostic Medical History Medical History Date Comments Anxiety DX:Anxiety Migraine DX:Migraine History of DVT (deep vein thrombosis) 05/23/2020 DX:History of DVT (deep vein thrombosis); COMMENT: 01/2005 Right Subclavain long term acute care registered nurse current use of anticoagulant 0 DX:snf current use of anticoagulant Acute deep vein thrombosis ( DVT) of brachial vein of right upper extremity ([facility] V24, [facility] V28) 05/09/2020 DX:Acute deep vein thrombos is (DVT) of brachial vein of right upper extremity (HCC) Axillary lymphadenopathy 05/09/2020 DX:Axil harvinder lymphadenopathy Gastroesophageal reflux disease 05/09/2020 DX:Gastroesophageal reflux disease Personal history of Hodgkin lymphoma 05/09/2020 DX:Personal history of Hodgkin lymphoma Recurrent major depressive d isorder in remission ([facility] V24) 05/09/2020 DX:Recurrent major depressiv e disorder in remission (HCC) Rheumatoid arthritis involvi ng multiple sites ([facility] V24, [facility] V28) 05/09/2020 DX:Rheumatoid arthritis invo lving multiple sites (HCC) Hodgkin's disease, nodular s clerosis, of lymph nodes of multiple sites ([facility] V24, [facility] V28) DX:Hodgkin's disease, nodul ar sclerosis, [...] age to complete this topic Care Teams Shell Fisherman Relationship Specialty Start Date End Date Sanjay Cruz MD [address] [place] [phone] PCP - General Internal Medicine 04/09/20
--- OUTSIDE RECORDS SUMMARY | 2025-04-17 13:33 | XMS_ITS | Encounter Summary ---
Author Organization [employer] Address [address] [facility] [address] [place] [address] Care Team Providers Care Feature Writer Name Role Phone Mackenzie Estrada MD Primary Care Provider [phone] Casper Magaña RN Unavailable [phone] Ruth Ann Price Unavailable Unavailable Ruth Ann Price Unavailable Ruth Ann Price Unavailable Reason for Visit * Reason Comments Med Refill Encounter Details Date Type Department Care Team ([facility] Contact Info) Description 12/10/2022 Refill [facility] [address] [place] [address] Mackenzie Estrada MD [address] [place] [address] Pain in both hands Social History Tobacco [...] Upcoming Encounters Date Type Department Care Team ([facility] Contact Info) Description 05/14/2025 9:45 AM EDT Office Visit [facility] [address] [place] [address] 06/07/2025 3:45 PM EST Office Visit [address] [phone] Mackenzie Estrada MD [address] [place] [phone] documented as of this encounter Visit Diagnoses Diagnosis Pain in both hands documented in this encounter Care Teams Feature Writer Relationship Specialty Start Date End Date Mackenzie Estrada MD [address] [place] [phone] PCP - General Family Medicine 07/10/20 Casper Magaña, RN [address] [place] [phone] Registered Nurse Family Medicine 01/18/25 01/18/25 Ruth Ann Price 02/19/25 02/19/25 Ruth Ann Price 02/19/25 02/28/25 Ruth Ann Price 03/29/25 04/03/25 Hemalatha Pretty Absorption OperatorLead Refiner 01/02/25 documented as of this encounter
--- OUTSIDE RECORDS SUMMARY | 2025-04-17 13:33 | XMS_ITS | Encounter Summary ---
Author Organization [employer] Address [address] [place] [address] Care Team Providers Care Frankfurter Inspector Name Role Phone Mackenzie Estrada MD Primary Care Provider [phone] Casper Magaña RN Unavailable [phone] Ruth Ann Price Unavailable Unavailable Ruth Ann Price Unavailable Ruth Ann Price Unavailable Reason for Visit * Reason Comments Med Refill Encounter Details Date Type Department Care Team (Late st Contact Info) Description 10/10/2024 Refill [facility] [address] [place] [address] Kat Yo MD [address] [place], [place] [phone] Rheumatoid arthritis involving right hand with positive [...] Description 05/14/2025 9:45 AM EDT Office Visit [facility] [address] [place] [phone] 06/07/2025 3:45 PM EST Office Visit [facility] [address] [place] [address] Mackenzie Estrada MD [address] [place] [phone] documented as of this encounter Goals Goal [...] documented as of this encounter Care Teams Frankfurter Inspector Relationship Specialty Start Date End Date Mackenzie Estrada MD [address] [place] [address] PCP - General Family Medicine 07/10/20 Casper Magaña, JENNIFER [address] [place] [phone] Registered Nurse Family Medicine 01/18/25 01/18/25 Ruth Ann Price 02/19/25 02/19/25 Ruth Ann Price 02/19/25 02/28/25 Ruth Ann Price 03/29/25 04/03/25 Hemalatha Pretty New Car SalespersonRelationship Banker 01/02/25 documented as of this encounter
--- OUTSIDE RECORDS SUMMARY | 2025-04-17 13:34 | XMS_ITS | Encounter Summary ---
Author Organization [employer] Address [address] [facility] [address] [place] [address] Care Team Providers Care Oleomargarine Maker Name Role Phone Mackenzie Estrada MD Primary Care Provider Casper Magaña RN Unavailable [phone] Ruth Ann Price Unavailable Unavailable Ruth Ann Price Unavailable Ruth Ann Price Unavailable Reason for Visit * Reason Comments Med Refill Encounter Details Date Type Department Care Team (Late st Contact Info) Description 08/19/2024 Refill [facility] [address] [place] [address] Mackenzie Estrada MD [address] [place] [address] Social History Tobacco Use Types Packs/Day Years [...] Visit [facility] [address] [place] [phone] 06/07/2025 3:45 PM EST Office Visit [address] [address] Mackenzie Estrada MD [address] [place] [phone] documented as of this encounter Goals Goal Patient Goal Type Associated Problems Recent Progress Patient-Stated? Author Quit using tobacco (cigarettes, smokeless, etc) Tobacco Use Corey Cornell, KelechiD documented as of this encounter Visit Diagnoses Not on filedocumented in this encounter Additional Health Concerns Assessment Noted Time PHQ-9 Depression Total Score: 2 04/30/20 24 10:41 AM EDT documented as of this encounter Care Teams Oleomargarine Maker Relationship Specialty Start Date End Date Mackenzie Estrada MD [address] [place] [phone] PCP - General Family Medicine 07/10/20 Casper Magaña, RN [address] [place] [phone] Registered Nurse Family Medicine 01/18/25 01/18/25 Ruth Ann Price 02/19/25 02/19/25 Ruth Ann Price 02/19/25 02/28/25 Ruth Ann Price 03/29/25 04/03/25 Hemalatha Pretty Condenser TesterTelecommunication Systems Designer 01/02/25 documented as of this encounter
--- OUTSIDE RECORDS SUMMARY | 2025-04-17 13:34 | XMS_ITS | Encounter Summary ---
Author Organization [employer] Address 75 [facility] 7t [place] [address] Care Team Providers Care Casino Operations Supervisor Name Role Phone Mackenzie Estrada MD Primary Care Provider [phone] Reason for Visit * Reason Comments Med Refill Encounter Details Date Type Department Care Team ([facility] Contact Info) Description 04/15/2025 Refill [facility] MEDICINE [address] [place] [address] Mackenzie Estrada MD [address] [place] [address] Social History Tobacco Use Types Packs/Day Years [...] 9:45 AM EDT Office Visit [facility] MEDICINE [address] [place] [address] 06/07/2025 3:45 PM EST Office Visit [facility] MEDICINE [address] [place] [address] Mackenzie Estrada MD [address] [place] [address] documented as of this encounter Goals Goal [...] documented as of this encounter Care Teams Casino Operations Supervisor Relationship Specialty Start Date End Date Mackenzie Estrada MD [address] [place] [address] PCP - General Family Medicine 07/10/20 Hemalatha Pretty Box Toe StitcherField Administrative Assistant 01/02/25 documented as of this encounter
--- OUTSIDE RECORDS SUMMARY | 2025-04-17 13:34 | XMS_ITS | Encounter Summary ---
Author Organization [employer] Address 75 [facility] 7t [place] [address] Care Team Providers Care Inside Meter Tester Name Role Phone Mackenzie Estrada MD Primary Care Provider [phone] Ruth Ann Price Unavailable Unavailable Ruth Ann Price Unavailable Ruth Ann Price Unavailable Reason for Visit * Reason Comments Med Refill Encounter Details Date Type Department Care Team ([facility] st Contact Info) Description 02/01/2025 Refill [facility] MEDICINE [address] [place], [place] [phone] Ebony Daigle MD 230 [place], [place] [phone] Social History Tobacco Use Types Packs/Day Years [...] AM EDT Office Visit [facility] MEDICINE [address] [place] [address] 06/07/2025 3:45 PM EST Office Visit [facility] MEDICINE [address] [place] [address] Mackenzie Estrada MD [address] [place] [address] documented as of this encounter Goals Goal Patient Goal Type Associated Problems Recent Progress Patient-Stated? Author Quit using tobacco (cigarettes, smokeless, etc) Tobacco Use Corey Cornell, PharmD documented as of this encounter Visit Diagnoses Not on filedocumented in this encounter Additional Health Concerns Assessment Noted Time PHQ-9 Depression Total Score: 2 04/30/20 24 10:41 AM EDT documented as of this encounter Care Teams Inside Meter Tester Relationship Specialty Start Date End Date Mackenzie Estrada MD [address] [place] [address] PCP - General Family Medicine 07/10/20 Ruth Ann Price 02/19/25 02/19/25 Ruth Ann Price 02/19/25 02/28/25 Ruth Ann Price 03/29/25 04/03/25 Hemalatha Pretty Head Of Operation And LogisticsBuckle Assembler 01/02/25 documented as of this encounter
--- OUTSIDE RECORDS SUMMARY | 2025-04-17 13:34 | XMS_ITS | Encounter Summary ---
Author Organization [employer] Address [address] [facility] [address] 7t [place] [address] Care Team Providers Care Microwave Engineer Name Role Phone Mackenzie Estrada MD Primary Care Provider [phone] Casper Magaña RN Unavailable [phone] Ruth Ann Price Unavailable Unavailable Ruth Ann Price Unavailable Ruth Ann Price Unavailable Encounter Details Date Type Department Care Team (Late st Contact Info) Description 12/13/2023 Orders Only [facility] MEDICINE [address] [place] [address] Mackenzie Estrada MD 230 [place], [place] [phone] Pain in both hands Social History Tobacco [...] 05/14/2025 9:45 AM EDT Office Visit [facility] MEDICINE [address] [place] [address] 06/07/2025 3:45 PM EST Office Visit [address] [address] Mackenzie Estrada MD [address] [place] [address] documented as of this encounter Goals Goal Patient Goal Type Associated Problems Recent Progress Patient-Stated? Author Quit using tobacco (cigarettes, smokeless, etc) Tobacco Use Corey Cornell, Bailey documented as of this encounter Visit Diagnoses Diagnosis Pain in both hands documented in this encounter Care Teams Microwave Engineer Relationship Specialty Start Date End Date Mackenzie Estrada MD [address] [place] [address] PCP - General Family Medicine 07/10/20 Casper Magaña, JENNIFER [address] [place] [address] Registered Nurse Family Medicine 01/18/25 01/18/25 Ruth Ann Price 02/19/25 02/19/25 Ruth Ann Price 02/19/25 02/28/25 Ruth Ann Price 03/29/25 04/03/25 Hemalatha Pretty Supervisor LaboratoryLoading Checker 01/02/25 documented as of this encounter
--- OUTSIDE RECORDS SUMMARY | 2025-04-17 13:34 | XMS_ITS | Encounter Summary ---
Author Organization [employer] Address [address] [facility] 7t [place] [address] Care Team Providers Care Manufacturing Operations Manager Name Role Phone Mackenzie Estrada MD Primary Care Provider [phone] Casper Magaña RN Unavailable [phone] Ruth Ann Price Unavailable Unavailable Ruth Ann Price Unavailable Ruth Ann Price Unavailable Reason for Referral * Imaging (Routine) - Closed Specialty Diagnoses / Procedures Referred By Contac t Referred To Contact Radiology Diagnoses Abnormal ultrasound of pelvis Procedures MR Pelvis w/ and w/o Contrast Mackenzie Estrada MD 230 [place] [address] Phone: tel: fax: [address] Phone: tel: fax: Referral ID Status Reason Start Date Expiration Date Visits Re quested Visits Authorized [id number] Closed 10/31/2023 10/30/2024 1 1 Encounter Details Date Type Department Care Team (Late st Contact Info) Description 10/31/2023 Orders Only [facility] MEDICINE 230 [place], [place] [phone] Mackenzie Estrada MD 230 [place], [place] [phone] Abnormal ultrasound of pelvis (Primary Dx) Social [...] which I need to talk to her modeling and simulation analyst about. Thank you! documented in this encounter Plan of Treatment Upcoming Encounters Date Type Department Care Team (Late st Contact Info) Description 05/14/2025 9:45 AM EDT Office Visit [facility] MEDICINE [address] [place] [address] 06/07/2025 3:45 PM EST Office Visit [facility] MEDICINE [address] [place] [address] [phone] Mackenzie Estrada MD [address] [place] [address] documented as of this encounter Goals Goal Patient Goal Type Associated Problems Recent Progress Patient-Stated? Author Quit using tobacco (cigarettes, smokeless, etc) Tobacco Use Corey Cornell, PharmD documented as of this encounter Procedures Procedure Name Priority Date/Time Associated Diagnosis Comments MR PELVIS W AND WO CONTRAST Routine 11/25/2023 3:05 PM EDT Abnormal ultrasound of pelvis documented in this encounter Results * MR Pelvis w/ and w/o Contrast (11/25/2023 3:05 PM EDT) Anatomical Region Laterality Modality Body, Pelvis Magnetic Resonan ce 11/25/2023 3:05 PM EDT Narrative 12/07/2023 9:11 AM EDT [address] [address] Magnetic Resonance Report Signed Patient: Ginette Arceo MR #: [id number] : 1975 Acct:[id number] Age/Sex: 48 / F ADM Date: 11/25/23 Loc: HO.MRI Attending Dr: Mackenzie Etsrada MD Ordering Physician: Mackenzie Estrada Date of Service: 11/25/23 Procedure(s): MR pelvis wo/w con Accession Number(s): [id number] cc: Mackenzie Estrada EXAMINATION: MR PELVIS WITHOUT [...] measures 7.8 x 3.6 x 4.3 cm (obeykj-fs-xamfkq x AP x transverse dimension). The junctional [...] in OV> 12/07/23 0907 DD/ 1505 TD/TT: Document Control Manager: PD Procedure Note Donotuseinterpreter, Image - 12/07/[address] [address] Magnetic Resonance Report Signed Patient: Ginette ArceoMR #: [id number] : 1975Acct:[id number] Age/Sex: 48 / FADM Date: 11/25/23 Loc: HO.MRI Attending Dr: Mackenzie Estrada MD Ordering Physician: Mackenzie Estrada Date of Service: 11/25/23 Procedure(s): MR pelvis wo/w con Accession Number(s): [id number] cc: Mackenzie Estrada EXAMINATION: MR PELVIS WITHOUT [...] measures 7.8 x 3.6 x 4.3 cm (ixdquh-mt-nyugoe x AP x transverse dimension). The junctional [...] in OV> 12/07/23 0907 DD/ 1505 TD/TT: Document Control Manager: PD Mackenzie Estrada MD IMG MRI PROCEDURES Final Resul t documented in this encounter Visit Diagnoses Diagnosis Abnormal ultrasound of pelvis- Primary documented in this encounter Care Teams Manufacturing Operations Manager Relationship Specialty Start Date End Date Mackenzie Estrada MD 230 [place] [address] PCP - General Family Medicine 07/10/20 Casper Magaña, RN [address] [place] [address] Registered Nurse Family Medicine 01/18/25 01/18/25 Ruth Ann Price 02/19/25 02/19/25 Ruth Ann Price 02/19/25 02/28/25 Ruth Ann Price 03/29/25 04/03/25 Hemalatha Pretty Hospital ScientistApplications Development Consultant 01/02/25 documented as of this encounter
--- OUTSIDE RECORDS SUMMARY | 2025-04-17 13:34 | XMS_ITS | Encounter Summary ---
Author Organization [employer] Address 75 [facility] 7t [place] [address] Care Team Providers Care Medical Communication Specialist Name Role Phone Mackenzie Estrada MD Primary Care Provider [phone] Reason for Visit * Reason Comments Med Refill Encounter Details Date Type Department Care Team ([facility] Contact Info) Description 04/07/[address] [facility] MEDICINE 230 [place] [address] Mackenzie Estrada MD 230 [place] [address] Social History Tobacco Use Types Packs/Day Years [...] AM EDT Office Visit [facility] MEDICINE [address] [place] [address] 06/07/2025 3:45 PM EST Office Visit [facility] MEDICINE [address] [place] [address] Mackenzie Estrada MD [address] [place] [address] documented as of this encounter Goals Goal [...] documented as of this encounter Care Teams Medical Communication Specialist Relationship Specialty Start Date End Date Mackenzie Estrada MD [address] [place] [address] PCP - General Family Medicine 07/10/20 Hemalatha Pretty Rotary DrillerPowerhouse Attendant 01/02/25 documented as of this encounter
--- OUTSIDE RECORDS SUMMARY | 2025-04-17 13:34 | XMS_ITS | Encounter Summary ---
Author Organization [employer] Address [address] [facility] [address] 7t [place] [address] Care Team Providers Care Seeing Eye Dog Trainer Name Role Phone Mackenzie Estrada MD Primary Care Provider [phone] Ruth Ann Price Unavailable Unavailable Ruth Ann Price Unavailable Ruth Ann Price Unavailable Reason for Visit * Reason Comments Med Refill Encounter Details Date Type Department Care Team ([facility] st Contact Info) Description 01/24/2025 Refill [facility] 230 [place] [address] Kat Yo MD 230 [place], [place] [phone] Rheumatoid arthritis involving right hand with positive [...] AM EDT Office Visit [facility] MEDICINE [address] [place] [address] 06/07/2025 3:45 PM EST Office Visit [facility] MEDICINE [address] [place] [address] Mackenzie Estrada MD [address] [place] [address] documented as of this encounter Goals Goal [...] Noted Time PHQ-9 Depression Total Score: 2 09/30/20 24 10:41 AM EDT documented as of this encounter Care Teams Seeing Eye Dog Trainer Relationship Specialty Start Date End Date Mackenzie Estrada MD [address] [place] [address] PCP - General Family Medicine 07/10/20 Ruth Ann Price 02/19/25 02/19/25 Ruth Ann Price 02/19/25 02/28/25 Ruth Ann Price 03/29/25 04/03/25 Hemalatha Pretty City MagistrateWeigher And Grader 01/02/25 documented as of this encounter
--- OUTSIDE RECORDS SUMMARY | 2025-04-17 13:34 | XMS_ITS | Encounter Summary ---
Author Organization [employer] Address 75 [facility] 7t [place] [address] Care Team Providers Care Line Crewman Name Role Phone Mackenzie Estrada MD Primary Care Provider [phone] Ruth Ann Price Unavailable Unavailable Ruth Ann Price Unavailable Ruth Ann Price Unavailable Reason for Visit * Reason Comments Med Refill Encounter Details Date Type Department Care Team ([facility] st Contact Info) Description 01/24/2025 Refill [facility] MEDICINE [address] [place] [address] Ebony Daigle MD 230 [place], [place] [phone] Rheumatoid arthritis involving multiple sites with positive rheumatoid factor ([facility]) Social History Tobacco Use Types Packs/Day [...] Visit [facility] MEDICINE [address] [place] [address] 06/07/2025 3:45 PM EST Office Visit [facility] MEDICINE [address] [place] [address] Mackenzie Estrada MD [address] [place] [address] documented as of this encounter Goals Goal [...] documented as of this encounter Care Teams Line Crewman Relationship Specialty Start Date End Date Mackenzie Estrada MD [address] [place] [address] PCP - General Family Medicine 07/10/20 Ruth Ann Price 02/19/25 02/19/25 Ruth Ann Price 02/19/25 02/28/25 Ruth Ann Price 03/29/25 04/03/25 Hemalatha Pretty Washer EngineerWedding Cake Designer 01/02/25 documented as of this encounter
--- OUTSIDE RECORDS SUMMARY | 2025-04-17 13:34 | XMS_ITS | Encounter Summary ---
Author Organization [employer] Address 75 [facility] 7t [place] [address] Care Team Providers Care Fur Examiner Name Role Phone Mackenzie Estrada MD Primary Care Provider [phone] Casper Magaña RN Unavailable [phone] Ruth Ann Price Unavailable Unavailable Ruth Ann Price Unavailable Ruth Ann Price Unavailable Reason for Visit * Reason Comments Med Refill Encounter Details Date Type Department Care Team (Late st Contact Info) Description 02/08/2023 Refill [facility] MEDICINE 230 [place] [address] Mackenzie Estrada MD 230 [place] [address] Pain in both hands Social History Tobacco [...] Description 05/14/2025 9:45 AM EDT Office Visit [address] [address] 06/07/2025 3:45 PM EST Office Visit [address] [address] Mackenzie Estrada MD [address] [place] [address] documented as of this encounter Visit Diagnoses Diagnosis Pain in both hands documented in this encounter Care Teams Fur Examiner Relationship Specialty Start Date End Date Mackenzie Estrada MD [address] [place] [address] PCP - General Family Medicine 07/10/20 Casper Magaña RN [address] [place] [address] Registered Nurse Family Medicine 01/18/25 01/18/25 Ruth Ann Price 02/19/25 02/19/25 Ruth Ann Price 02/19/25 02/28/25 Ruth Ann Price 03/29/25 04/03/25 Hemalatha Pretty Quality Assurance/R&D Lab TechnicianInfection Control Rn 01/02/25 documented as of this encounter
--- OUTSIDE RECORDS SUMMARY | 2025-04-17 13:34 | XMS_ITS | Encounter Summary ---
Author Organization [employer] Address [address] [facility] [address] 7t [place] [address] Care Team Providers Care Gameroom Technician Name Role Phone Mackenzie Estrada MD Primary Care Provider [phone] Casper Magaña RN Unavailable [phone] Ruth Ann Price Unavailable Unavailable Ruth Ann Price Unavailable Ruth Ann Price Unavailable Encounter Details Date Type Department Care Team (Late st Contact Info) Description 10/03/2023 Orders Only [facility] MEDICINE 230 [place] [address] Mackenzie Estrada MD 230 [place], [place] [phone] Bacterial vaginosis (Primary Dx) Social History Tobacco [...] Office Visit [facility] MEDICINE [address] [place] [address] 06/07/2025 3:45 PM EST Office Visit [address] [address] Mackenzie Estrada MD [address] [place] [address] documented as of this encounter Goals Goal Patient Goal Type Associated Problems Recent Progress Patient-Stated? Author Quit using tobacco (cigarettes, smokeless, etc) Tobacco Use Corey Cornell, KelechiD documented as of this encounter Visit Diagnoses Diagnosis Bacterial vaginosis- Primary Unspecified vaginitis and vulvovaginitis documented in this encounter Care Teams Gameroom Technician Relationship Specialty Start Date End Date Mackenzie Estrada MD [address] [place] [address] PCP - General Family Medicine 07/10/20 Casper Magaña, JENNIFER [address] [place] [address] Registered Nurse Family Medicine 01/18/25 01/18/25 Ruth Ann Price 02/19/25 02/19/25 Ruth Ann Price 02/19/25 02/28/25 Ruth Ann Price 03/29/25 04/03/25 Hemalatha Pretty Book CriticOdd Shoe Examiner 01/02/25 documented as of this encounter
--- OUTSIDE RECORDS SUMMARY | 2025-04-17 13:34 | XMS_ITS | Encounter Summary ---
Author Organization [employer] Address 75 [facility] 7t [place] [address] Care Team Providers Care Burnishing Machine Operator Name Role Phone Mackenzie Estrada MD Primary Care Provider [phone] Casper Magaña RN Unavailable [phone] Ruth Ann Price Unavailable Unavailable Ruth Ann Price Unavailable Ruth Ann Price Unavailable Reason for Visit * Reason Comments Med Refill Encounter Details Date Type Department Care Team (Late st Contact Info) Description 10/10/2024 Refill [facility] MEDICINE 230 [place] [address] Mackenzie Estrada MD [address] [place] [address] 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 ([facility]) Social History Tobacco Use Types Packs/Day [...] Description 05/14/2025 9:45 AM EDT Office Visit [facility] MEDICINE [address] [place] [address] 06/07/2025 3:45 PM EST Office Visit [facility] MEDICINE [address] [place] [address] Mackenzie Estrada MD [address] [place] [address] documented as of this encounter Goals Goal [...] documented as of this encounter Care Teams Burnishing Machine Operator Relationship Specialty Start Date End Date Mackenzie Estrada MD [address] [place] [address] PCP - General Family Medicine 07/10/20 Casper Magaña RN [address] [place] [address] Registered Nurse Family Medicine 01/18/25 01/18/25 Ruth Ann Price 02/19/25 02/19/25 Ruth Ann Price 02/19/25 02/28/25 Ruth Ann Price 03/29/25 04/03/25 Hemalatha Pretty Computer Console OperatorSkin Pass Operator 01/02/25 documented as of this encounter
--- OUTSIDE RECORDS SUMMARY | 2025-04-17 13:34 | XMS_ITS | Encounter Summary ---
Author Organization [employer] Address 75 [facility] 7t [place] [address] Care Team Providers Care Raw Stock Drier Tender Name Role Phone Mackenzie Estrada MD Primary Care Provider [phone] Reason for Visit * Reason Comments Med Refill Encounter Details Date Type Department Care Team ([facility] Contact Info) Description 04/09/2025 Refill [facility] MEDICINE [address] [place] [address] Sisi Kennedy FNP [address] [place] [address] Seborrheic dermatitis Social History Tobacco Use Types Packs/Day Years [...] Description 05/14/2025 9:45 AM EDT Office Visit [facility] MEDICINE [address] [place] [address] 06/07/2025 3:45 PM EST Office Visit [facility] MEDICINE [address] [place] [address] Mackenzie Estrada MD [address] [place] [address] documented as of this encounter Goals Goal Patient Goal Type Associated Problems Recent Progress Patient-Stated? Author Quit using tobacco (cigarettes, smokeless, etc) Tobacco Use No Corey Lin, Bailey documented as of this encounter Visit Diagnoses Diagnosis Seborrheic dermatitis Unspecified seborrheic dermatitis documented in this encounter Additional Health Concerns Assessment Noted Time PHQ-9 Depression Total Score: 6 04/03/20 25 11:40 AM EDT documented as of this encounter Care Teams Raw Stock Drier Tender Relationship Specialty Start Date End Date Mackenzie Estrada MD [address] [place] [address] PCP - General Family Medicine 07/10/20 Hemalatha Pretty Er RegistrarYarding Engineer 01/02/25 documented as of this encounter
--- OUTSIDE RECORDS SUMMARY | 2025-04-17 13:34 | XMS_ITS | Encounter Summary ---
Author Organization [employer] Address 75 [facility] 7t [place] [address] Care Team Providers Care Rod Straightener Name Role Phone Mackenzie Estrada MD Primary Care Provider [phone] Reason for Visit * Reason Comments Med Refill Encounter Details Date Type Department Care Team ([facility] Contact Info) Description 04/12/2025 Refill [facility] MEDICINE 230 [place] [address] Mackenzie Estrada MD [address] [place] [address] Social History Tobacco Use Types Packs/Day Years [...] Description 05/14/2025 9:45 AM EDT Office Visit [facility] MEDICINE [address] [place] [address] 06/07/2025 3:45 PM EST Office Visit [facility] MEDICINE [address] [place] [address] Mackenzie Estrada MD [address] [place] [address] documented as of this encounter Goals Goal [...] documented as of this encounter Care Teams Rod Straightener Relationship Specialty Start Date End Date Mackenzie Estrada MD [address] [place] [address] PCP - General Family Medicine 07/10/20 Hemalatha Pertty Color Paste Mixing SupervisorSteward/Stewardess Bath 01/02/25 documented as of this encounter
--- OUTSIDE RECORDS SUMMARY | 2025-04-17 13:34 | XMS_ITS | Encounter Summary ---
Author Organization [employer] Address 75 [facility] 7t [place] [address] Care Team Providers Care Personal Banking Assistant Name Role Phone Mackenzie Estrada MD Primary Care Provider [phone] Encounter Details Date Type Department Care Team (Latest Contact Info) Description 04/05/2025 Results Follow-Up [facility] MED & PEDS [address] [place], [place] [phone] Sisi Kennedy FNP [address] [place] [address] CBC auto differential Social History Tobacco Use Types Packs/Day Years [...] is your housing situation today? I have mendozadoron prince 05/15/[address] you [...] encounter Miscellaneous Notes * Telephone Encounter - Hilary Dodd RN - 04/05/2025 1:47 PM EDT Tc to pt via S ID: [id number] to let them know per PCP Please call to let her know that theblood work came back normal - CBC. Please ask if she is feeling better after starting the antibiotics. Thanks! (Pt unable to read/write so not able to send results via letter) . Pt reports they already feel better and started the abx yesterday. Pt advised if sx worsen after tx is finish to return back to clinic to be evaluated again. Pt verbalized understanding and agrees with plan. Message sent to covering for review. * Telephone Encounter - Hilary Dodd RN - 04/05/2025 1:46 PM EDT ----- Message from Sisi Kennedy sent at 04/05/2025 1:25 PM EDT ----- Please call to let her know that the blood work came back normal - CBC. Please ask if she is feeling better after starting the antibiotics. Thanks! (Pt unable to read/write so not able to send results via letter) ----- Message ----- From: Interface, Lab Results In Sent: 04/04/2025 11:30 AM EDT To: FARHEEN Ng documented in this encounter Plan of Treatment Upcoming Encounters Date Type Department Care Team (Late st Contact Info) Description 05/14/2025 9:45 AM EDT Office Visit [facility] MEDICINE [address] [place] [address] [phone] 06/07/2025 3:45 PM EST Office Visit [address] [address] Mackenzie Estrada MD [address] [place] [address] documented as of this encounter Goals Goal Patient Goal Type Associated Problems Recent Progress Patient-Stated? Author Quit using tobacco (cigarettes, smokeless, etc) Tobacco Use Corey Cornell, KelechiD documented as of this encounter Visit Diagnoses Not on filedocumented in this encounter Additional Health Concerns Assessment Noted Time PHQ-9 Depression Total Score: 6 04/03/20 11:40 AM EDT documented as of this encounter Care Teams Personal Banking Assistant Relationship Specialty Start Date End Date Mackenzie Estrada MD [address] [place] [address] [phone] PCP - General Family Medicine 07/10/20 Hemalatha Pretty Retention RepresentativeVocal Performer 01/02/25 documented as of this encounter
--- OUTSIDE RECORDS SUMMARY | 2025-04-17 13:34 | XMS_ITS | Encounter Summary ---
Author Organization [employer] Address 75 [facility] 7t [place] [address] Care Team Providers Care Nightclub Manager Name Role Phone Mackenzie Estrada MD Primary Care Provider [phone] Reason for Visit * Reason Comments Med Refill Encounter Details Date Type Department Care Team ([facility] Contact Info) Description 04/11/2025 Refill [facility] MEDICINE [address] [place] [address] Mackenzie Estrada MD 230 [place] [address] 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 [...] the past 12 months, has t he [employer], gas, oil or water [employer] threatened to shut off services in your [...] EDT Office Visit [facility] MEDICINE [address] [place] [address] 06/07/2025 3:45 PM EST Office Visit [facility] MED[facility]INE [address] [place] [address] Mackenzie Estrada MD [address] [place] [address] documented as of this encounter Goals Goal [...] documented as of this encounter Care Teams Nightclub Manager Relationship Specialty Start Date End Date Mackenzie Estrada MD [address] [place] [address] PCP - General Family Medicine 07/10/20 Hemalatha Pretty Director Process ImprovementDirector Recreation Center 01/02/25 documented as of this encounter
--- OUTSIDE RECORDS SUMMARY | 2025-04-17 13:34 | XMS_ITS | Encounter Summary ---
Author Organization [employer] Address 75 [facility] 7t [place] [address] Care Team Providers Care Body Design Checker Name Role Phone Mackenzie Estrada MD Primary Care Provider [phone] Casper Magaña RN Unavailable [phone] Ruth Ann Price Unavailable Unavailable Ruth Ann Price Unavailable Ruth Ann Price Unavailable Reason for Visit * Reason Comments Med Refill Encounter Details Date Type Department Care Team (Late st Contact Info) Description 11/18/2023 Refill [facility] MEDICINE 230 [place] [address] Mackenzie Estrada MD 230 [place], [place] [phone] Pain in both hands Social History Tobacco [...] 05/14/2025 9:45 AM EDT Office Visit [facility] MEDICINE [address] [place] [address] 06/07/2025 3:45 PM EST Office Visit [address] [address] Mackenzie Estrada MD [address] [place] [address] documented as of this encounter Goals Goal Patient Goal Type Associated Problems Recent Progress Patient-Stated? Author Quit using tobacco (cigarettes, smokeless, etc) Tobacco Use No Corey Lin, Bailey documented as of this encounter Visit Diagnoses Diagnosis Pain in both hands documented in this encounter Care Teams Body Design Checker Relationship Specialty Start Date End Date Mackenzie Estrada MD [address] [place] [address] PCP - General Family Medicine 07/10/20 Casper Magaña, JENNIFER [address] [place] [address] Registered Nurse Family Medicine 01/18/25 01/18/25 Ruth Ann Price 02/19/25 02/19/25 Ruth Ann Price 02/19/25 02/28/25 Ruth Ann Price 03/29/25 04/03/25 Hemalatha Pretty Liquor MakerProofing Machine Operator 01/02/25 documented as of this encounter
--- OUTSIDE RECORDS SUMMARY | 2025-04-17 13:34 | XMS_ITS | Encounter Summary ---
Author Organization [employer] Address 75 [facility] 7t [place] [address] Care Team Providers Care Binding Cutter Synthetic Cloth Name Role Phone Mackenzie Estrada MD Primary Care Provider [phone] Reason for Visit * Reason Onset Date Comments Med Refill 04/17/2025 Encounter Details Date Type Department Care Team ([facility] Contact Info) Description 04/17/2025 Telephone [facility] MEDICINE [address] [place], [place] [phone] Mackenzie Estrada MD 230 [place] [address] Med Refill Social History Tobacco Use Types Packs/Day Years [...] Telephone Encounter - Kaylene Samano RN - 04/17/2025 9:44 AM EDT Duplicate request. Request was sent to PCP 04/16/25, awaiting response. * Telephone Encounter - Cecelia Pendleton - 04/17/2025 9:27 AM EDT TC from pt requesting medication refill. Medications needing refill : oxyCODONE-acetaminophen (Percocet) 7.5-325 MG tablet To be sent to: [facility] - [place], [place] - [address] [facility] documented in this encounter Plan of Treatment Upcoming Encounters Date Type Department Care Team ([facility] st Contact Info) Description 05/14/2025 9:45 AM EDT Office Visit [facility] MEDICINE [address] [place] [address] 06/07/2025 3:45 PM EST Office Visit [facility] MED[facility]INE [address] [place] [address] Mackenzie Estrada MD 230 [place] [address] documented as of this encounter Goals Goal Patient Goal Type Associated Problems Recent Progress Patient-Stated? Author Quit using tobacco (cigarettes, smokeless, etc) Tobacco Use Corey Cornell, KelechiD documented as of this encounter Visit Diagnoses Not on filedocumented in this encounter Additional Health Concerns Assessment Noted Time PHQ-9 Depression Total Score: 6 04/03/20 11:40 AM EDT documented as of this encounter Care Teams Binding Cutter Synthetic Cloth Relationship Specialty Start Date End Date Mackenzie Estrada MD [address] [place] [address] PCP - General Family Medicine 07/10/20 Hemalatha Pretty Greenstone Polisher OperatorHydraulic Rock Drill Operator 01/02/25 documented as of this encounter
--- OUTSIDE RECORDS SUMMARY | 2025-04-17 13:34 | XMS_ITS | Encounter Summary ---
Author Organization [employer] Address 75 [facility] 7t [place] [address] Care Team Providers Care Welder Metal Fab Name Role Phone Mackenzie Estrada MD Primary Care Provider [phone] Reason for Visit * Reason Onset Date Comments Med Refill 04/16/2025 Encounter Details Date Type Department Care Team ([facility] st Contact Info) Description 04/16/2025 Refill [facility] MEDICINE 230 [place] [address] Mackenzie Estrada MD 230 [place] [address] 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 [...] the past 12 months, has t he [employer], gas, oil or water [employer] threatened to shut off services in your [...] * Telephone Encounter - Rigo Martinez - 04/16/2025 2:34 PM EDT TC from pt requesting medication refill. Medications needing refill: oxyCODONE-acetaminophen (Percocet) 7.5-325 MG tablet To be sent to: [facility] - [place], [place] - [address] [place] [address] documented in this encounter Plan of Treatment Upcoming Encounters Date Type Department Care Team (Late st Contact Info) Description 05/14/2025 9:45 AM EDT Office Visit [facility] MEDICINE [address] [place] [address] 06/07/2025 3:45 PM EST Office Visit [facility] MED[facility]INE [address] [place] [address] Mackenzie Estrada MD [address] [place] [address] documented as of this encounter Goals Goal Patient Goal Type Associated Problems Recent Progress Patient-Stated? Author Quit using tobacco (cigarettes, smokeless, etc) Tobacco Use Corey Cornell, KelechiD documented as of this encounter Visit Diagnoses Diagnosis 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 ([facility]) documented in this encounter Additional Health Concerns Assessment Noted Time PHQ-9 Depression Total Score: 04/03/20 11:40 AM EDT documented as of this encounter Care Teams Welder Metal Fab Relationship Specialty Start Date End Date Mackenzie Estrada MD 230 [place] [address] PCP - General Family Medicine 07/10/20 Hemalatha Pretty Principal Statistical ProgrammerMarket Sales Manager 01/02/25 documented as of this encounter
--- OUTSIDE RECORDS SUMMARY | 2025-04-17 13:34 | XMS_ITS | Encounter Summary ---
Author Organization [employer] Address 75 [facility] 7t [place] [address] Care Team Providers Care Upholsterer Inside Name Role Phone Mackenzie Estrada MD Primary Care Provider [phone] Casper Magaña RN Unavailable [phone] Ruth Ann Price Unavailable Unavailable Ruth Ann Price Unavailable Ruth Ann Price Unavailable Encounter Details Date Type Department Care Team (Late Contact Info) Description 03/04/2023 Orders Only [facility] MEDICINE [address] [place] [phone] Kat Yo MD [address] [place] [address] Social History Tobacco Use Types Packs/Day Years [...] 05/14/2025 9:45 AM EDT Office Visit [facility] MEDICINE [address] [place] [address] [phone] 06/07/2025 3:45 PM EST Office Visit [facility] MEDICINE [address] [place] [address] [phone] Mackenzie Estrada MD [address] [place] [address] documented as of this encounter Visit Diagnoses Not on filedocumented in this encounter Care Teams Upholsterer Inside Relationship Specialty Start Date End Date Mackenzie Estrada MD [address] [place], [place] [phone] PCP - General Family Medicine 07/10/20 Casper Magaña, RN [address] [place] [address] Registered Nurse Family Medicine 01/18/25 01/18/25 Ruth Ann Price 02/19/25 02/19/25 Ruth Ann Price 02/19/25 02/28/25 Ruth Ann Price 03/29/25 04/03/25 Hemalatha Pretty Quality Control EngineerInternational Sourcing Manager 01/02/25 documented as of this encounter
--- OUTSIDE RECORDS SUMMARY | 2025-04-17 13:35 | XMS_ITS | Encounter Summary ---
Author Organization [employer] Address 75 [facility] 7t [place] [address] Care Team Providers Care Inspection Clerk Name Role Phone Mackenzie Estrada MD Primary Care Provider [phone] Casper Magaña RN Unavailable [phone] Ruth Ann Price Unavailable Unavailable Ruth Ann Price Unavailable Ruth Ann Prcie Unavailable Reason for Visit * Reason Onset Date Comments Appointment Request 08/16/2023 Encounter Details Date Type Department Care Team ([facility] st Contact Info) Description 08/16/2023 Telephone [facility] MEDICINE 230 [place], [place] [phone] Mackenzie Estrada MD 230 [place], [place] [phone] Appointment Request Social History Tobacco Use Types [...] in message prior. * Telephone Encounter - Ferminpawelanderson Zhang Chance - 08/16/2023 9:39 AM EST Tc from pt requesting if there is anything available for today to be seen today. Please contact pt @ [phone] Croatian Speaker documented in this encounter Plan of Treatment Upcoming Encounters Date Type Department Care Team (Late st Contact Info) Description 05/14/2025 9:45 AM EDT Office Visit [facility] MEDICINE [address] [place] [address] 06/07/2025 3:45 PM EST Office Visit [facility] MEDICINE [address] [place] [address] Mackenzie Estrada MD [address] [place] [address] [place] [phone] documented as of this encounter Goals Goal Patient Goal Type Associated Problems Recent Progress Patient-Stated? Author Quit using tobacco (cigarettes, smokeless, etc) Tobacco Use Corey Cornell, KelechiD documented as of this encounter Visit Diagnoses Not on filedocumented in this encounter Care Teams Inspection Clerk Relationship Specialty Start Date End Date Mackenzie Estrada MD [address] [place], [place] [phone] PCP - General Family Medicine 07/10/20 Casper Magaña, JENNIFER [address] [place] [address] Registered Nurse Family Medicine 01/18/25 01/18/25 Ruth Ann Price 02/19/25 02/19/25 Ruth Ann Price 02/19/25 02/28/25 Ruth Ann Price 03/29/25 04/03/25 Hemalatha Pretty Bingo WorkerMarket Superintendent 01/02/25 documented as of this encounter
--- OUTSIDE RECORDS SUMMARY | 2025-04-17 13:35 | XMS_ITS | Encounter Summary ---
Author Organization [employer] Address [address] [facility] [address] 7t [place] [address] Care Team Providers Care It Senior Software Engineer Java Name Role Phone Mackenzie Estrada MD Primary Care Provider [phone] Casper Magaña RN Unavailable [phone] Ruth Ann Price Unavailable Unavailable Ruth Ann Price Unavailable Ruth Ann Price Unavailable Encounter Details Date Type Department Care Team (Late st Contact Info) Description 05/10/2024 Orders Only [facility] MEDICINE 230 [place] [address] Mackenzie Estrada MD 230 [place] [address] Social History Tobacco Use Types Packs/Day Years [...] Office Visit [facility] MEDICINE [address] [place] [address] 06/07/2025 3:45 PM EST Office Visit [facility] MEDICINE [address] [place] [address] Mackenzie Estrada MD [address] [place] [address] documented as of this encounter Goals Goal [...] as of this encounter Care Teams It Senior Software Engineer Java Relationship Specialty Start Date End Date Mackenzie sEtrada MD [address] [place] [address] PCP - General Family Medicine 07/10/20 Casper Magaña, RN [address] [place] [address] [place] [address] Registered Nurse Family Medicine 01/18/25 01/18/25 Ruth Ann Price 02/19/25 02/19/25 Ruth Ann Price 02/19/25 02/28/25 Ruth Ann Price 03/29/25 04/03/25 Hemalatha Pretty Chief GaugerGear Cutting Machine Set Up Operator 01/02/25 documented as of this encounter
--- OUTSIDE RECORDS SUMMARY | 2025-04-17 13:35 | XMS_ITS | Encounter Summary ---
Author Organization [employer] Address 75 [facility] 7t [place] [address] Care Team Providers Care Practice Architect Name Role Phone Mackenzie Estrada MD Primary Care Provider [phone] Casper Magaña RN Unavailable [phone] Ruth Ann Price Unavailable Unavailable Ruth Ann Price Unavailable Ruth Ann Price Unavailable Reason for Visit * Reason Onset Date Comments Hospital Follow-up 02/24/2024 Encounter Details Date Type Department Care Team ([facility] st Contact Info) Description 02/24/2024 Telephone [facility] MEDICINE 230 [place], [place] [phone] Mackenzie Estrada MD 230 [place], [place] [phone] Hospital Follow-up Social History Tobacco Use Types [...] t he electric, gas, oil or water [employer] threatened to shut off services in [...] from pt requesting a HDF appt. Hospital: [facility] Date of admission: 02/19 Discharge date: 02/23 Diagnosed: Rectal Bleeding Swedish Speaker documented in this encounter Plan of Treatment Upcoming Encounters Date Type Department Care Team (Late st Contact Info) Description 05/14/2025 9:45 AM EDT Office Visit [facility] MEDICINE [address] [place] [address] 06/07/2025 3:45 PM EST Office Visit [facility] MEDICINE [address] [place] [address] Mackenzie Estrada MD [address] [place] [address] documented as of this encounter Goals Goal Patient Goal Type Associated Problems Recent Progress Patient-Stated? Author Quit using tobacco (cigarettes, smokeless, etc) Tobacco Use No Corey Lin, PharmD documented as of this encounter Visit Diagnoses Not on filedocumented in this encounter Care Teams Practice Architect Relationship Specialty Start Date End Date Mackenzie Estrada MD 230 [place] [address] PCP - General Family Medicine 07/10/20 Casper Magaña, JENNIFER [address] [place] [address] Registered Nurse Family Medicine 01/18/25 01/18/25 Ruth Ann Price 02/19/25 02/19/25 Ruth Ann Price 02/19/25 02/28/25 Ruth Ann Price 03/29/25 04/03/25 Hemalatha Pretty Well Treatment OffsiderInsole Cementer 01/02/25 documented as of this encounter
--- OUTSIDE RECORDS SUMMARY | 2025-04-17 13:35 | XMS_ITS | Encounter Summary ---
Author Organization [employer] Address 75 [facility] 7t [place] [address] Care Team Providers Care Beef Tagger Name Role Phone Mackenzie Estrada MD Primary Care Provider [phone] Casper Magaña RN Unavailable [phone] Ruth Ann Price Unavailable Unavailable Ruth Ann Price Unavailable Ruth Ann Price Unavailable Reason for Visit * Reason Comments Med Refill Encounter Details Date Type Department Care Team (Late st Contact Info) Description 06/01/[address] [facility] MEDICINE 230 [place] [address] Mackenzie Estrada MD 230 [place], [place] [phone] Pain in both hands Social History Tobacco [...] 05/14/2025 9:45 AM EDT Office Visit [facility] MEDICINE [address] [place] [address] 06/07/2025 3:45 PM EST Office Visit [address] [address] Mackenzie Estrada MD [address] [place] [address] documented as of this encounter Goals Goal Patient Goal Type Associated Problems Recent Progress Patient-Stated? Author Quit using tobacco (cigarettes, smokeless, etc) Tobacco Use No Corey Lin, Bailey documented as of this encounter Visit Diagnoses Diagnosis Pain in both hands documented in this encounter Care Teams Beef Tagger Relationship Specialty Start Date End Date Mackenzie Estrada MD [address] [place] [address] PCP - General Family Medicine 07/10/20 Casper Magaña, JENNIFER [address] [place] [address] Registered Nurse Family Medicine 01/18/25 01/18/25 Ruth Ann Price 02/19/25 02/19/25 Ruth Ann Price 02/19/25 02/28/25 Ruth Ann Price 03/29/25 04/03/25 Hemalatha Pretty Pony Roll FinisherDirector Of Veterans Affairs 01/02/25 documented as of this encounter
--- OUTSIDE RECORDS SUMMARY | 2025-04-17 13:35 | XMS_ITS | Encounter Summary ---
Author Organization [employer] Address 75 [facility] 7t [place] [address] Care Team Providers Care Public Area Attendant Name Role Phone Mackenzie Estrada MD Primary Care Provider [phone] Casper Magaña RN Unavailable [phone] Ruth Ann Price Unavailable Unavailable Ruth Ann Price Unavailable Ruth Ann Price Unavailable Reason for Visit * Reason Comments Med Refill Encounter Details Date Type Department Care Team (Late st Contact Info) Description 08/26/2023 Refill [facility] MEDICINE 230 [place] [address] Sisi Kennedy, FARHEEN 505 [place] [address] Viral upper respiratory tract infection Social History [...] Description 05/14/2025 9:45 AM EDT Office Visit [address] [address] 06/07/2025 3:45 PM EST Office Visit [address] [address] Mackenzie Estrada MD [address] [place] [address] documented as of this encounter Goals Goal Patient Goal Type Associated Problems Recent Progress Patient-Stated? Author Quit using tobacco (cigarettes, smokeless, etc) Tobacco Use No Corey Lin, Bailey documented as of this encounter Visit Diagnoses Diagnosis Viral upper respiratory tract infection Acute upper respiratory infections of unspecified site documented in this encounter Care Teams Public Area Attendant Relationship Specialty Start Date End Date Mackenzie Estrada MD [address] [place] [address] PCP - General Family Medicine 07/10/20 Casper Magaña, JENNIFER [address] [place] [address] Registered Nurse Family Medicine 01/18/25 01/18/25 Ruth Ann Price 02/19/25 02/19/25 Ruth Ann Price 02/19/25 02/28/25 Ruth Ann Price 03/29/25 04/03/25 Hemalatha Pretty Tourist Home KeeperBlanket Maker 01/02/25 documented as of this encounter
--- OUTSIDE RECORDS SUMMARY | 2025-04-17 13:35 | XMS_ITS | Encounter Summary ---
Author Organization [employer] Address 75 [facility] 7t [place] [address] Care Team Providers Care Service Restorer Emergency Name Role Phone Mackenzie Estrada MD Primary Care Provider [phone] Casper Magaña RN Unavailable [phone] Ruth Ann Price Unavailable Unavailable Ruth Ann Price Unavailable Ruth Ann Price Unavailable Reason for Visit * Reason Comments Med Refill Encounter Details Date Type Department Care Team (Late st Contact Info) Description 01/12/2024 Refill [facility] 230 [place] [address] Mackenzie Estrada MD 230 [place] [address] Rheumatoid arthritis involving multiple sites with positive rheumatoid factor ([facility]) Social History Tobacco Use Types Packs/Day [...] Description 05/14/2025 9:45 AM EDT Office Visit [facility] [address] [place] [address] 06/07/2025 3:45 PM EST Office Visit [facility] [address] [place] [address] Mackenzie Estrada MD [address] [place] [address] documented as of this encounter Goals Goal Patient Goal Type Associated Problems Recent Progress Patient-Stated? Author Quit using tobacco (cigarettes, smokeless, etc) Tobacco Use No Corey Lin, KelechiD documented as of this encounter Visit Diagnoses Diagnosis Rheumatoid arthritis involving multiple sites with positive rheumatoid factor ([facility]) documented in this encounter Care Teams Service Restorer Emergency Relationship Specialty Start Date End Date Mackenzie Estrada MD [address] [place] [address] PCP - General Family Medicine 07/10/20 Casper Magaña, RN [address] [place] [address] [place] [address] Registered Nurse Family Medicine 01/18/25 01/18/25 Ruth Ann Price 02/19/25 02/19/25 Ruth Ann Price 02/19/25 02/28/25 Ruth Ann Price 03/29/25 04/03/25 Hemalatha Pretty Patient MonitorCenterless Grinder Tender 01/02/25 documented as of this encounter
--- OUTSIDE RECORDS SUMMARY | 2025-04-17 13:35 | XMS_ITS | Encounter Summary ---
Author Organization [employer] Address [address] [facility] [address] 7t [place] [address] Care Team Providers Care Sanitation Worker Name Role Phone Mackenzie Estrada MD Primary Care Provider [phone] Casper Magaña RN Unavailable [phone] Ruth Ann Price Unavailable Unavailable Ruth Ann Price Unavailable Ruth Ann Price Unavailable Encounter Details Date Type Department Care Team (Late st Contact Info) Description 05/21/2024 Telephone [facility] 230 [place] [address] Mackenzie Estrada MD 230 [place] [address] Social History Tobacco Use Types Packs/Day Years [...] [facility] [address] [place] [address] 06/07/2025 3:45 PM EST Office Visit [facility] [address] [place] [address] Mackenzie Estrada MD [address] [place] [address] documented as of this encounter Goals Goal [...] documented as of this encounter Care Teams Sanitation Worker Relationship Specialty Start Date End Date Mackenzie Estrada MD [address] [place] [address] PCP - General Family Medicine 07/10/20 Casper Magaña, RN [address] [place] [address] Registered Nurse Family Medicine 01/18/25 01/18/25 Ruth Ann Price 02/19/25 02/19/25 Ruth Ann Price 02/19/25 02/28/25 Ruth Ann Price 03/29/25 04/03/25 Hemalatha Pretty Soil ConservationistHospitality Internship 01/02/25 documented as of this encounter
--- OUTSIDE RECORDS SUMMARY | 2025-04-17 13:35 | XMS_ITS | Encounter Summary ---
Author Organization [employer] Address 75 [facility] 7t [place] [address] Care Team Providers Care Head Refrigerating Engineer Name Role Phone Mackenzie Estrada MD Primary Care Provider Casper Magaña RN Unavailable [phone] Ruth Ann Price Unavailable Unavailable Ruth Ann Price Unavailable Ruth Ann Price Unavailable Reason for Visit * Reason Onset Date Comments Triage 11/10/2022 Encounter Details Date Type Department Care Team ([facility] st Contact Info) Description 11/10/2022 Telephone [facility] MED[facility]INE 230 [place] [address] Mackenzie Estrada MD 230 [place] [address] Triage Social History Tobacco Use Types Packs/Day [...] - 11/11/2022 11:10 AM EDT TC to [phone] via [employer] interpreters in regards to below message. Pt reports she went to [facility] since [facility] did not return her call. RN informed pt triage nurses attempted to call pt x2 however pt did not answer. RN reviewed [facility] ED note and pt presented to ED [...] however she has not been able to mushroom picker the nystatin medication because [facility] did not have it. RN asked if [facility] informed the pt they were going to order it however pt was not sure. RN placed pt on hold and called [facility] pharmacy who reports it is supposed to be arriving in store today and pt should call around 3pm to inquire if it was received and ready for mushroom picker. Pt verbalized understanding. RN advised pt if her rash does not resolve with medication and her pain does not resolve to call [facility] to schedule an appt for further evaluation. Pt verbalized understanding. Pt to F/U PRN. RN has printed ED note and placed in scan bin * Telephone Encounter - Chika Ingram LPN - 11/10/2022 2:30 PM EDT Triage call returned to patient with [employer] teletype technician [phone] to listed number x 2 no answer. Left message to return call to [phone]. Team Nurses tasked to follow with patient [...] Description 05/14/2025 9:45 AM EDT Office Visit [address] [address] 06/07/2025 3:45 PM EST Office Visit [address] [phone] Mackenzie Estrada MD [address] [place] [address] documented as of this encounter Visit Diagnoses Not on filedocumented in this encounter Care Teams Head Refrigerating Engineer Relationship Specialty Start Date End Date Mackenzie Estrada MD 230 [place], [place] [phone] PCP - General Family Medicine 07/10/20 Casper Magaña, JENNIFER [address] [place] [address] Registered Nurse Family Medicine 01/18/25 01/18/25 Ruth Ann Price 02/19/25 02/19/25 Ruth Ann Price 02/19/25 02/28/25 Ruth Ann Price 03/29/25 04/03/25 Hemalatha Pretty Manager Corporate MarketingOncology Navigator 01/02/25 documented as of this encounter
--- OUTSIDE RECORDS SUMMARY | 2025-04-17 13:35 | XMS_ITS | Encounter Summary ---
Author Organization [employer] Address 75 [facility] 7t [place] [address] Care Team Providers Care Youth Nutritional Monitor Name Role Phone Mackenzie Estrada MD Primary Care Provider Casper Magaña RN Unavailable [phone] Ruth Ann Price Unavailable Unavailable Ruth Ann Price Unavailable Ruth Ann Price Unavailable Reason for Visit * Reason Comments Med Refill Encounter Details Date Type Department Care Team ([facility] Contact Info) Description 09/22/2022 Refill [facility] 230 [place] [address] Sarika Palacios, RHONA 230 [place] [address] Tinea pedis of both feet Social History [...] Upcoming Encounters Date Type Department Care Team ([facility] Contact Info) Description 05/14/2025 9:45 AM EDT Office Visit [address] [address] 06/07/2025 3:45 PM EST Office Visit [address] [address] Mackenzie Estrada MD [address] [place] [address] documented as of this encounter Visit Diagnoses Diagnosis Tinea pedis of both feet documented in this encounter Care Teams Youth Nutritional Monitor Relationship Specialty Start Date End Date Mackenzie Estrada MD [address] [place] [address] [phone] PCP - General Family Medicine 07/10/20 Casper Magaña, RN [address] [place] [address] Registered Nurse Family Medicine 01/18/25 01/18/25 Ruth Ann Price 02/19/25 02/19/25 Ruth Ann Price 02/19/25 02/28/25 Ruth Ann Price 03/29/25 04/03/25 Hemalatha Pretty Register Of DeedsApplications Development Analyst 01/02/25 documented as of this encounter
--- OUTSIDE RECORDS SUMMARY | 2025-04-17 13:35 | XMS_ITS | Encounter Summary ---
Author Organization [employer] Address 75 [facility] 7t [place] [address] Care Team Providers Care Care Associate Name Role Phone Mackenzie Estrada MD Primary Care Provider [phone] Casper Magaña RN Unavailable [phone] Ruth Ann Price Unavailable Unavailable Ruth Ann Price Unavailable Ruth Ann Price Unavailable Reason for Visit * Reason Comments Med Refill Encounter Details Date Type Department Care Team (Late st Contact Info) Description 07/20/2024 Refill [facility] 230 [place] [address] Mackenzie Estrada MD 230 [place] [address] 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 ([facility]) Social History Tobacco Use [...] [facility] MED[facility]INE [address] [place] [address] 06/07/2025 3:45 PM EST Office Visit [facility] [address] [place] [address] Mackenzie Estrada MD [address] [place] [address] documented as of this encounter Goals Goal [...] documented as of this encounter Care Teams Care Associate Relationship Specialty Start Date End Date Mackenzie Estrada MD 230 [place] [address] PCP - General Family Medicine 07/10/20 Casper Magaña, JENNIFER [address] [place] [address] Registered Nurse Family Medicine 01/18/25 01/18/25 Ruth Ann Price 02/19/25 02/19/25 Ruth Ann Price 02/19/25 02/28/25 Ruth Ann Price 03/29/25 04/03/25 Hemalatha Pretty Assembler BodyCaddy Packer 01/02/25 documented as of this encounter
--- OUTSIDE RECORDS SUMMARY | 2025-04-17 13:35 | XMS_ITS | Encounter Summary ---
Author Organization [employer] Address [address] [facility] [address] 7t [place] [address] Care Team Providers Care Smt Technician Name Role Phone Mackenzie Estrada MD Primary Care Provider [phone] Casper Magaña RN Unavailable [phone] Ruth Ann Price Unavailable Unavailable Ruth Ann Price Unavailable Ruth Ann Price Unavailable Encounter Details Date Type Department Care Team (Late st Contact Info) Description 06/01/2023 Orders Only [facility]INE 230 [place] [address] Mackenzie Estrada MD 230 [place] [address] Encounter for smoking cessation counseling (Primary Dx) [...] Visit [facility] [address] [place] [address] 06/07/2025 3:45 PM EST Office Visit [address] [address] Mackenzie Estrada MD [address] [place] [address] documented as of this encounter Goals Goal Patient Goal Type Associated Problems Recent Progress Patient-Stated? Author Quit using tobacco (cigarettes, smokeless, etc) Tobacco Use Corey Cornell, KelechiD documented as of this encounter Visit Diagnoses Diagnosis Encounter for smoking cessation counseling- Primary documented in this encounter Care Teams Smt Technician Relationship Specialty Start Date End Date Mackenzie Estrada MD [address] [place] [address] PCP - General Family Medicine 07/10/20 Casper Magaña, JENNIFER [address] [place] [address] Registered Nurse Family Medicine 01/18/25 01/18/25 Ruth Ann Price 02/19/25 02/19/25 Ruth Ann Price 02/19/25 02/28/25 Ruth Ann Price 03/29/25 04/03/25 Hemalatha Pretty Chemist SteroidsDrop Crew Laborer 01/02/25 documented as of this encounter
--- OUTSIDE RECORDS SUMMARY | 2025-04-17 13:35 | XMS_ITS | Encounter Summary ---
Author Organization [employer] Address [address] [facility] [address] 7t [place] [address] Care Team Providers Care Dermatological Surgeon Name Role Phone Mackenzie Estrada MD Primary Care Provider [phone] Casper Magaña RN Unavailable [phone] Ruth Ann Price Unavailable Unavailable Ruth Ann Price Unavailable Ruth Ann Price Unavailable Encounter Details Date Type Department Care Team (Late st Contact Info) Description 04/10/2024 Orders Only [facility] 230 [place] [address] Mackenzie Estrada MD 230 [place] [address] Social History Tobacco Use Types Packs/Day Years [...] 9:45 AM EDT Office Visit [facility] [address] [place] [address] 06/07/2025 3:45 PM EST Office Visit [facility] [address] [place] [address] Mackenzie Estrada MD [address] [place] [address] documented as of this encounter Goals Goal Patient Goal Type Associated Problems Recent Progress Patient-Stated? Author Quit using tobacco (cigarettes, smokeless, etc) Tobacco Use No Corey Lin, Bailey documented as of this encounter Visit Diagnoses Not on filedocumented in this encounter Care Teams Dermatological Surgeon Relationship Specialty Start Date End Date Mackenzie Estrada MD [address] [place] [address] PCP - General Family Medicine 07/10/20 Casper Magaña, JENNIFER [address] [place] [address] Registered Nurse Family Medicine 01/18/25 01/18/25 Ruth Ann Price 02/19/25 02/19/25 Ruth Ann Price 02/19/25 02/28/25 Ruth Ann Price 03/29/25 04/03/25 Hemalatha Pretty Scientific AssociateRoller Inspector And Mender 01/02/25 documented as of this encounter
--- OUTSIDE RECORDS SUMMARY | 2025-04-17 13:35 | XMS_ITS | Encounter Summary ---
Author Organization [employer] Address 75 [facility] 7t [place] [address] Care Team Providers Care Base Ply Hand Name Role Phone Mackenzie Estrada MD Primary Care Provider Casper Magaña RN Unavailable [phone] Ruth Ann Price Unavailable Unavailable Ruth Ann Price Unavailable Ruth Ann Price Unavailable Reason for Visit * Reason Comments Med Refill Encounter Details Date Type Department Care Team (Late st Contact Info) Description 06/02/2023 Refill [facility] MEDICINE 230 [place] [address] Mackenzie Estrada MD 230 [place], [place] [phone] Pain in both hands Social History Tobacco [...] Visit [facility]INE [address] [place] [address] 06/07/2025 3:45 PM EST Office Visit [address] [address] Mackenzie Estrada MD [address] [place] [address] documented as of this encounter Goals Goal Patient Goal Type Associated Problems Recent Progress Patient-Stated? Author Quit using tobacco (cigarettes, smokeless, etc) Tobacco Use No Corey Lin, Bailey documented as of this encounter Visit Diagnoses Diagnosis Pain in both hands documented in this encounter Care Teams Base Ply Hand Relationship Specialty Start Date End Date Mackenzie Estrada MD [address] [place] [address] PCP - General Family Medicine 07/10/20 Casper Magaña, JENNIFER [address] [place] [address] Registered Nurse Family Medicine 01/18/25 01/18/25 Ruth Ann Price 02/19/25 02/19/25 Ruth Ann Price 02/19/25 02/28/25 Ruth Ann Price 03/29/25 04/03/25 Hemalatha Pretty Operating Room OrderlyMagazine Designer 01/02/25 documented as of this encounter
--- OUTSIDE RECORDS SUMMARY | 2025-04-17 13:35 | XMS_ITS | Encounter Summary ---
Author Organization [employer] Address 75 [facility] 7t [place] [address] Care Team Providers Care Supervisor Pumping Station Name Role Phone Mackenzie Estrada MD Primary Care Provider [phone] Casper Magaña RN Unavailable [phone] Ruth Ann Price Unavailable Unavailable Ruth Ann Price Unavailable Ruth Ann Price Unavailable Reason for Visit * Reason Comments Med Refill Encounter Details Date Type Department Care Team (Late st Contact Info) Description 07/26/2023 Refill [facility]INE 230 [place] [address] Name, MD Mark 230 [place] [address] Pain in both hands Social History Tobacco [...] Visit [facility] MEDICINE [address] [place] [address] 06/07/2025 3:45 PM EST Office Visit [address] [address] Mackenzie Estrada MD [address] [place] [address] documented as of this encounter Goals Goal Patient Goal Type Associated Problems Recent Progress Patient-Stated? Author Quit using tobacco (cigarettes, smokeless, etc) Tobacco Use No Corey Lin, Bailey documented as of this encounter Visit Diagnoses Diagnosis Pain in both hands documented in this encounter Care Teams Supervisor Pumping Station Relationship Specialty Start Date End Date Mackenzie Estrada MD [address] [place] [address] PCP - General Family Medicine 07/10/20 Casper Magaña, JENNIFER [address] [place] [address] Registered Nurse Family Medicine 01/18/25 01/18/25 Ruth Ann Price 02/19/25 02/19/25 Ruth Ann Price 02/19/25 02/28/25 Ruth Ann Price 03/29/25 04/03/25 Hemalatha Pretty Seafood ProcessorOptometry Professor 01/02/25 documented as of this encounter
--- OUTSIDE RECORDS SUMMARY | 2025-04-17 13:35 | XMS_ITS | Encounter Summary ---
Author Organization [employer] Address 75 [facility] 7t [place] [address] Care Team Providers Care Chief Underwriter Name Role Phone Mackenzie Estrada MD Primary Care Provider [phone] Casper Magaña RN Unavailable [phone] Ruth Ann Price Unavailable Unavailable Ruth Ann Price Unavailable Ruth Ann Price Unavailable Reason for Visit * Reason Comments Med Refill Encounter Details Date Type Department Care Team (Late st Contact Info) Description 07/21/2023 Refill [facility] 230 [place] [address] Name, MD Mark 230 [place] [address] Pain in both hands Social History Tobacco [...] EDT Office Visit [facility] [address] [place] [address] 06/07/2025 3:45 PM EST Office Visit [address] [address] Mackenzie Estrada MD [address] [place] [address] documented as of this encounter Goals Goal Patient Goal Type Associated Problems Recent Progress Patient-Stated? Author Quit using tobacco (cigarettes, smokeless, etc) Tobacco Use No Corey Lin, Bailey documented as of this encounter Visit Diagnoses Diagnosis Pain in both hands documented in this encounter Care Teams Chief Underwriter Relationship Specialty Start Date End Date Mackenzie Estrada MD [address] [place] [address] PCP - General Family Medicine 07/10/20 Casper Magaña, JENNIFER [address] [place] [address] Registered Nurse Family Medicine 01/18/25 01/18/25 Ruth Ann Price 02/19/25 02/19/25 Ruth Ann Price 02/19/25 02/28/25 Ruth Ann Price 03/29/25 04/03/25 Hemalatha Pretty Managed Care DirectorNutrition Partner 01/02/25 documented as of this encounter
--- OUTSIDE RECORDS SUMMARY | 2025-04-17 13:35 | XMS_ITS | Encounter Summary ---
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 [...] Description 05/14/2025 9:45 AM EDT Office Visit [facility] [address] [place] [address] 06/07/2025 3:45 PM EST Office Visit [facility] [address] [place] [address] Mackenzie Estrada MD [address] [place] [address] documented as of this encounter Goals Goal [...] documented as of this encounter Care Teams Crime Prevention Police Officer Relationship Specialty Start Date End Date Mackenzie Estrada MD 230 [place] [address] PCP - General Family Medicine 07/10/20 Ruth Ann Price 03/29/25 04/03/25 Hemalatha Pretty Optics Test TechnicianLine Service Attendant 01/02/25 documented as of this encounter
--- OUTSIDE RECORDS SUMMARY | 2025-04-17 13:35 | XMS_ITS | Clinical Summary ---
Author Organization [employer] Address [address] [facility] [address] [place] [address] Care Team Providers Care Digital Strategy Manager Name Role Phone Mackenzie Estrada MD Primary Care Provider [phone] Allergies Active Allergy Reactions Criticality Noted Date Comments Cable (Diagnostic) 05/23/2020 Cable Oil Anaphylaxis High 07/19/2022 Morphine 06/02/2015 Other [...] 05/26/20 22 Active Sharps Container (GUARDIAN Sharps Geospatial Technologist) misc 06/15/20 22 Active Vitamin D High Potency 25 MCG (1000 UT) capsule Take 25 mcg by mouth in the morning. 12/11/19 23 Active beta carotene (vitamin A) 3 MG (55555 UT) capsule Take by mouth in the [...] MOUTH EVERY WEEK 02/24/20 24 Active Umeclidinium [place] (Incruse Ellipta) 62.5 MCG/ACT aerosol powderIndicatio ns:Subacute cough INHALE 1 PUFF BY MOUTH EVERY DAY AT THE SAME TIME 1 each 04/23/20 Active nitroglycerin (Nitrostat) 0.4 MG SL tablet [...] DIRECTED 30 patch 3 08/14/19 25 Active cetirizine (ZyrTEC) 10 MG tablet TAKE 1 TABLET BY MOUTH EVERY MORNING FOR EAR PAIN 90 tablet 3 09/18/19 25 Active famotidine (Pepcid) 20 MG tabletIndicatio ns:Gastroesopha geal reflux disease with hiatal hernia TAKE 1 TABLET BY MOUTH TWICE DAILY AT NOON AND IN THE EVENING 180 tablet 3 09/25/19 25 Active clopidogrel (Plavix) 75 MG tabletIndicatio ns:NSTEMI (non-ST elevated myocardial infarction) ([facility]) Take 1 tablet (75 mg) by mouth Once per day. 90 tablet 3 09/28/19 25 026 Active Diclofenac Sodium 1 % gelIndications: Chronic low back pain, unspecified back pain laterality, unspecified whether sciatica present apply 2 gram by topical route 4 times every day as needed for hand pain 50 g 2 11/07/19 25 Active cyclobenzaprine (Flexeril) 10 MG tablet Take 1 tablet [...] 02/16/20 25 Active ketoconazole (NIZOral) 2 % shampooIndicati ons:Seborrheic dermatitis Apply topically 2 (two) times a week. Apply 5 to 10 mL to wet scalp; leave on for 3 to 5 minutes and then rinse off thoroughly 120 mL 1 03/14/20 25 026 Active ursodiol (Actigall) 250 MG tablet TAKE 1 TABLET BY MOUTH TWICE DAILY IN THE MORNING AND IN THE EVENING 60 tablet 11 03/13/20 25 Active oxyCODONE-aceta minophen (Percocet) 7.5-325 MG tabletIndicatio ns:Osteonecrosi s of hip with collapse of femoral head present on x-ray ([facility]) TAKE 1 TABLET BY MOUTH EVERY 6 HOURS NEEDED FOR SEVERE PAIN FOR UP TO 28 DAYS 112 tablet 03/21/20 25 025 Active acetaminophen (Tylenol) 500 MG tablet Take 1 tablet (500 mg) by mouth every 6 (six) hours if needed for moderate pain or fever. 50 tablet 04/09/20 25 Active gabapentin (Neurontin) 400 MG capsule TAKE 1 CAPSULE BY MOUTH THREE TIMES DAILY IN THE MORNING, EVENING, AND BEDTIME (1 EXTRA IN VIAL NEEDED) 120 capsule 6 04/12/20 25 Active Ferrous Sulfate (iron) 325 (65 Fe) MG tablet TAKE 1 TABLET BY MOUTH EVERY MORNING 90 tablet 3 04/15/20 25 Active FeroSul 325 (65 Fe) MG tablet TAKE 1 TABLET BY MOUTH EVERY MORNING 90 tablet 3 04/30/20 24 025 Discontinued gabapentin (Neurontin) 400 MG capsule TAKE 1 CAPSULE BY MOUTH THREE TIMES DAILY IN THE MORNING, EVENING, AND BEDTIME (TAKE 1-2 CAPSULE (S) BY MOUTH THREE TIMES DAILY -EXTRA IN VIAL FOR NEEDED) 120 capsule 6 09/07/19 25 025 Discontinued oxyCODONE-aceta minophen (Percocet) 7.5-325 MG tabletIndicatio ns:Osteonecrosi s of hip with collapse of femoral head present on x-ray (CMS/HCC) Take 1 tablet by mouth every 6 (six) hours if needed for severe pain for up to 28 days. 112 tablet 02/22/20 25 025 Discontinued econazole nitrate 1 % creamIndication s:Seborrheic dermatitis Apply topically Once per day for 14 days. (Nose) 15 g 1 03/12/20 25 025 doxycycline (Vibra-Tabs) 100 MG tabletIndicatio ns:Nodule of skin of both upper extremities Take 1 tablet (100 mg) by mouth 2 times daily for 7 days. Take with a full glass of water and do not lie down for at least 30 minutes after. 14 tablet 04/03/20 025 cephalexin (Keflex) 500 MG capsuleIndicati ons:Nodule of skin of both upper extremities Take 1 capsule (500 mg) by mouth 4 times daily for 7 days. 28 capsule 04/03/20 25 025 Active Problems Problem Noted Date Diagnosed Date Soft tissue lesion of elbow region 01/24/2025 Assessment & Plan (01/24/2025 2:42 PM EDT): They seem to be tophi lesions rheumatoid nodules, however evaluation for gout has been reportedly negative. Lesions get infected on and off over the years requiring hospitalizations or outpatient antibiotics. Patient should continue RA treatment with electric meter repairer apprentice, avoid trauma to elbows. Cervical paraspinal muscle spasm 01/24/2025 Long-term current use of opiate analgesic 2024 Overview (12/12/2024): Medication: Percocet 7.5/325mg Q6H PRN Indication: Rheumatoid arthritis Last RETORT UNLOADER Agreement: 06/12/24 Tier: II (Q3 months visits), [...] 8:21 AM EST): Has Narcan at home RETORT UNLOADER agreement UTD Seeing group pain visits for RETORT UNLOADER Assessment & Plan (09/11/2024 5:03 PM EST): [...] to go back to her previous dose, RETORT UNLOADER nurse informed about my plan, I instructed [...] pt f w Dr. Corley, rheum at [facility] - Actemra infusions ( Tocilizumab) 8mg/kg every 4 weeks - methotrexate 25mg every week - Folic acid 1 mg every day -percocet 7.5/325 1 tab Q6 h -I called today her Web Services Professional # [phone] --got apt and requested transportation to [facility] RN -apt w electric meter repairer apprentice in 2 days this Tuesday03/08/2025 at 1 h 40 at [address] [facility] -start prednisone 20 mg daily [...] thrombosis) 05/23/2020 Overview (09/28/2023): 01/2005 Right Subclavain alf current use of anticoagulant 0 Personal history of Hodgkin lymphoma 05/09/2020 Axillary lymphadenopathy 05/09/2020 Acute deep vein thrombosis ( DVT) of brachial vein of right upper extremity 03/07/2020 Lymphadenopathy, generalized 03/07/2020 Migraine without status migrainosus, not intract able 12/06/2017 Paresthesia and pain of left extremity 8 Gastroesophageal reflux disease 06/03/2017 Rheumatoid arthritis involving multiple sites Overview (03/12/2025): - Following with [facility] Rheumatology: Dr. Corley Assessment & Plan (03/12/2025 [...] not as effective -I spoke today with [facility] staff today ( Shahla) and confirmed they do have remdesivir which will be the best options for tx for this pt , ER at [facility] are expecting pt for evaluation. Also pt [...] week as per Rheumatology. Rx sent to [facility] and they will continue [...] organization. Date Type Department Care Team Description 04/17/2025 Telephone [facility] [address] [place] [phone] Mackenzie Estrada MD Med Refill 04/16/2025 Refill [facility] [address] [place] [address] [phone] Mackenzie Estrada MD 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 ([facility]) 04/15/2025 Refill [facility] [address] [place] [address] 46[address] Mackenzie Estrada MD 04/12/2025 Refill [facility] [address] [place] [address] [phone] Mackenzie Estrada MD 04/11/2025 Refill [facility] [address] [place] [address] [phone] Mackenzie Estrada MD 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 ([facility]) 04/09/2025 10:40 AM EDT Office Visit [facility] [address] [place] [phone] David Jensen MD Nodule of skin of both upper extremities (Primary Dx) 04/09/2025 Orders Only [facility] [address] [place] [address] [phone] David Jensen MD 04/09/2025 Refill [facility] [address] [place] [address] Sisi Kennedy, SILK SPOOLER Seborrheic dermatitis 04/09/2025 Travel 04/09/2025 Telephone [facility] [address] [place] [phone] Mackenzie Estrada MD Nurse Triage 04/07/2025 Refill [facility] [address] [place] [address] [phone] Mackenzie Estrada MD 04/05/2025 Results Follow-Up [facility] [address] [facility] [place] [address] Sisi Kennedy FNP CBC auto differential 04/04/2025 Results Follow-Up [address] [address] Marychuy Bonilla ANP XR Elbow 3+ Views Left 04/04/2025 Orders Only GENERIC EXTERNAL DATA DEPARTMENT Provider, Generic External Data 04/03/2025 11:15 AM EDT Office Visit [address] [address] Sisi Kennedy FNP Nodule of skin of both upper extremities (Primary Dx) 04/03/2025 Patient Outreach [facility] MED [facility] PEDS [address] [place] [address] Mackenzie Estrada MD Care Coordination (Communication to patient assigned CP Coordinator ) 04/03/2025 Travel 04/02/[address] [address] Sisi Kennedy FNP CHART PREP 03/29/2025 Patient Outreach [facility] [address] [place] [address] Mackenzie Estrada MD Care Coordination ([facility] ED Follow Up) 03/29/2025 Patient Outreach [facility] [address] [place] [address] Mackenzie Estrada MD Care Coordination (CP Care Coordination Chart Review) 03/29/2025 Patient Outreach [address] [address] Mackenzie Estrada MD 03/18/[address] [address] Livia Amos MD 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 ([facility]) 03/14/[address] [address] Livia Amos MD 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 ([facility]) 03/13/[address] [address] Mackenzie Estrada MD 03/12/2025 9:45 AM EDT Office Visit [facility] [address] [place] [address] Sisi Kennedy FNP Rheumatoid arthritis involving multiple sites with positive rheumatoid factor ([facility]) (Primary Dx); Long-term current use of opiate analgesic; Seborrheic dermatitis 03/12/2025 Travel 03/06/2025 2:00 PM EDT Office Visit [facility] [address] [place] [phone] Livia Hooper MD Inflammatory arthritis (Primary Dx) 03/06/2025 Telephone [facility] MED[facility] [address] [place] [phone] Mackenzie Estrada MD pt1 (PT-1 Request [id number] Pending . For pending submissions, please check the portal periodically for updates. ) 03/06/2025 Telephone [facility] [address] [place] [address] Livia Hooper MD 03/06/2025 Travel 03/05/2025 Telephone [facility] [address] [place] [phone] Mackenzie Estrada MD Nurse Triage 02/28/2025 Patient Outreach [facility] [address] [place] [address] Mackenzie Estrada MD Care Coordination (CP/ Communication to pt assigned CP Coordinator) 02/21/2025 Refill [facility] [address] [place] [address] Kaylene Samano RN 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 ([facility]) 02/21/2025 Telephone [facility] [address] [place] [address] Mackenzie Estrada MD Med Refill 02/19/2025 Patient Outreach [facility] [address] [place] [address] Mackenzie Estrada MD Care Coordination ([facility] ED /F/U) 02/19/2025 Patient Outreach [facility] [address] [place] [address] Mackenzie Estrada MD Care Coordination ([facility] Wash Driller Helper / Chart Review) 02/19/2025 Patient Outreach [facility] [address] [place] [address] Mackenzie Estrada MD 02/19/2025 Patient Outreach [facility] [address] [place] [address] Mackenzie Estrada MD 02/18/2025 Refill [facility] [address] [place] [address] Mackenzie Estrada MD 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 ([facility]) 02/18/2025 Orders Only GENERIC EXTERNAL DATA DEPARTMENT Provider, Generic External Data 02/14/2025 Refill [facility] [address] [place] [address] Mackenzie Estrada MD 02/05/2025 Telephone [facility] [address] [place] [address] Mackenzie Estrada MD ER Follow-up 02/04/2025 Orders Only GENERIC EXTERNAL DATA DEPARTMENT Provider, Generic External Data 02/01/2025 Refill [facility] [address] [place] [address] Ebony Daigle MD 01/24/2025 12:15 PM EDT Office Visit [address] [address] Ebony Daigle MD Soft tissue lesion of elbow region (Primary Dx); Cervical paraspinal muscle spasm; Screening mammogram, encounter for; Encounter for immunization 01/24/2025 Refill [facility] [address] [place] [address] Ebony Daigle MD Rheumatoid arthritis involving multiple sites with positive rheumatoid factor ([facility]) 01/24/2025 Telephone [facility] [address] [place] [phone] Mackenzie Estrada MD Med Refill 01/24/2025 Refill [facility] [address] [place] [address] Kat Yo MD 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 ([facility]); Inflammatory arthritis 01/24/2025 Refill [facility] [address] [place] [address] Kaylene Samano RN 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 ([facility]) 01/24/2025 Travel 01/18/2025 Patient Outreach [facility] [address] [place] [address] Mackenzie Estrada MD Care Coordination ([facility]- ER F/U Call) 01/18/2025 Patient Outreach [facility] [address] [place] [address] Mackenzie Estrada MD 01/17/2025 Orders Only GENERIC EXTERNAL DATA DEPARTMENT Provider, Generic External Data from Last 3 Months Immunizations Immunization Administration [...] Sign Reading Time Taken Comments Blood Pressure 127/81 04/09/2025 10:45 AM EDT Pulse 96 04/09/2025 10:45 AM EDT Temperature 36.7 C (98.1 F) 04/09/2025 10:45 AM EDT Respiratory Rate 18 04/09/2025 10:4 5 AM EDT Oxygen Saturation 97% 04/09/2025 10: 45 AM EDT Inhaled Oxygen Concentration - - Weight 85.6 kg (188 lb 12.8 oz) 025 10:45 AM EDT Height 157.5 cm (5' 2 ) 04/03/2025 11:3 8 AM EDT Body Mass Index 34.53 04/03/2025 11:38 AM EDT Plan of Treatment Upcoming Encounters Date Type Department Care Team (Late st Contact Info) Description 05/14/2025 9:45 AM EDT Office Visit [facility] [address] [place] [phone] 06/07/2025 3:45 PM EST Office Visit [facility] MED[facility] [address] [place] [address] Mackenzie Estrada MD [address] [place] [address] Health Maintenance Due Date Last Done Comments [...] Depression Screening 04/03/2026 04/03/2025, 04/03/20 Tobacco Screening 04/09/2026 04/09/2025 Lipid Panel 09/14/2026 09/14/2021 DTaP/Tdap/Td Vaccines (2 [...] Procedure Name Priority Date/Time Associated Diagnosis Comments GRAM STAIN RESULT (NON ORDERABLE) Routine 04/09/2025 12:20 PM EDT URIC ACID Routine 04/04/2025 10:30 AM EDT LD Routine 04/04/2025 10:30 AM EDT HEPATIC FUNCTION PANEL Routine 10:30 AM EDT COMPREHENSIVE METABOLIC PANEL Routine 04/04/2025 10:30 AM EDT CBC WITH AUTO DIFFERENTIAL Routine 04/04/2025 10:30 AM EDT CBC WITH AUTO DIFFERENTIAL Routine 04/04/2025 10:30 AM EDT URINALYSIS WITH REFLEX MICROSCOPIC Routine 04/04/2025 10:30 AM EDT CBC WITH AUTO DIFFERENTIAL Routine 04/04/2025 10:30 AM EDT Nodule of skin of both upper extremities XR ELBOW 3+ VIEWS LEFT Urgent 10:14 AM EDT POCT GALLO-14 URINE DRUG SCREEN Routine 03/12/2025 10:28 AM EDT Rheumatoid arthritis involving multiple sites with positive rheumatoid factor ([facility]) Long-term current use of opiate analgesic URINALYSIS, COMPLETE, WITH REFLEX TO CULTURE Routine 02/18/2025 10:44 AM EDT VAS US LOWER EXTREMITY VENOUS DUPLEX BILATERAL Routine [...] EDT XR ANKLE 3+ VIEWS LEFT Routine 9:26 AM EDT SED RATE BY MODIFIED [...] Recently Relevant to Health Maintenance Results * Gram Stain Result (04/09/2025 12:20 PM EDT) 04/09/2025 12:2 0 PM EDT 04/10/2025 12:26 PM EDT Comment:Elbow Lt Narrative [facility] - 04/12/2025 8:06 AM EDT Gram stain results: No polys 1+ epithelial cells No organisms seen Routine Culture No growth after 2 days Specimen Source: Elbow Left us David Jensen MD HISTORICAL/NON ORDERABLE LABS Fi nal Result [facility] [address] [place] [address] [phone] * (ABNORMAL) CBC auto differential (04/04/2025 10:30 AM EDT) Only the most recent of6 resultswithin the time period is included. White Blood Count 5.1 4.8 - 10.8 X10*3/uL [facility] Red Blood Count 4.32 4.20 - 5.50 X10*6/uL [facility] Hemoglobin 13.0 12.0 - 16.0 g/dl [facility] Hematocrit 40.1 37.0 - 47.0 % [facility] Mean Corpuscular Volume 92.8 80.0 - 98.0 fL [facility] Mean Corpuscular Hemoglobin 30.1 27.0 - 33.0 pg [facility] Mean Corpuscular HGB Conc 32.4 31.0 - 35.0 g/dl [facility] Red Cell Distribution Width 13.9 11.0 - 16.0 % [facility] Platelet Count 253 160 - 400 X10*3/uL [facility] Mean Platelet Volume 10.5 9.4 - 12.3 fL [facility] Neutrophils Percent Auto 43.5(L) 45 - 73 % [facility] Imm Gran Pct Auto 0.2 0.0 - 0.4 % [facility] Lymphocytes Percent Auto 47.2(H) 20 - 40 % [facility] Monocytes Percent Auto 6.7 2 - 11 % [facility] Eosinophils Percent Auto 2.2 0 - 4 % [facility] Basophils Percent Auto 0.2 0 - 2 % [facility] NRBC Pct Auto 0.0 0.0 - 0.2 /100WBC [facility] Neutrophils Absolute Auto 2.2 2.0 - 8.3 x10*3/uL [facility] Imm Gran Abs Auto 0.01 0.00 - 0.03 X10*3/uL [facility] Lymphocytes Absolute Auto 2.4 1.2 - 4.9 X10*3/uL [facility] Monocytes Absolute Auto 0.3 0.1 - 1.2 X10*3/uL [facility] Eosinophils Absolute Auto 0.1 0.0 - 0.4 X10*3/uL [facility] Basophils Absolute Auto 0.0 0.0 - 0.2 X10*3/uL [facility] NRBC Abs Auto 0.000 0.0 - 0.012 X10*3/uL [facility] 04/04/2025 10:3 0 AM EDT 04/04/2025 11:15 AM EDT us Generic External Data Provider LAB BLOOD ORDERAB LES Final Result [facility] [address] [place] [phone] * Urinalysis w/reflex microscopic (04/04/2025 10:30 AM EDT) Color Urine Yellow [facility] Appearance Urine Clear [facility] PH 5.0 5.0 - 9.0 [facility] Glucose Urine UA Negative Negative mg/dL [facility] Urine Blood Negative Negative [facility] Specific [place] - Urine 1.020 1.005 - 1.025 [facility] Urine Protein Negative Neg-Trace mg/dL [facility] Urine Ketones Negative Negative mg/dL [facility] Nitrite Urine Negative Negative [facility] Leukocyte Esterase Urine Negative Negative [facility] 04/04/2025 10:3 0 AM EDT 04/04/2025 11:09 AM EDT Narrative [facility] - 04/04/2025 11:25 AM EDT Urine, Clean Catch Generic External Data Provider LAB URINE ORDERAB LES Final Result Performing Organization Address [facility] Co de Phone Number [facility] [address] [place] [phone] * (ABNORMAL) Uric acid (04/04/2025 10:30 AM EDT) Uric Acid 6.3(H) 2.4 - 5.7 mg/dL [facility] 04/04/2025 10:3 0 AM EDT 04/04/2025 11:15 AM EDT Generic External Data Provider LAB BLOOD ORDERAB LES Final Result Performing Organization Address [facility] Co de Phone Number [facility] [address] [place] [phone] * Lactate Dehydrogenase (LD) (04/04/2025 10:30 AM EDT) Lactate Dehydrogenase 130 122 - 220 U/L [facility] 04/04/2025 10:3 0 AM EDT 04/04/2025 11:15 AM EDT Generic External Data Provider LAB BLOOD ORDERAB LES Final Result Performing Organization Address [facility] de Phone Number [facility] [address] [place] [phone] * Hepatic Function Panel (04/04/2025 10:30 AM EDT) Only the most recent of2 resultswithin the time period is included. Bilirubin, Direct 0.1 0.0 - 0.5 mg/dL [facility] 04/04/2025 10:3 0 AM EDT 04/04/2025 11:15 AM EDT us Generic External Data Provider LAB BLOOD ORDERAB LES Final Result [facility] [address] [place] [address] [phone] * (ABNORMAL) Comprehensive Metabolic Panel (04/04/2025 10:30 AM EDT) Only the most recent of3 resultswithin the time period is included. Sodium 140 135 - 145 mmol/L [facility] Potassium 3.9 3.3 - 5.1 mmol/L [facility] Chloride 105 96 - 108 mmol/L [facility] Carbon Dioxide 25 22 - 29 mmol/L [facility] Anion Gap 14 12 - 20 [facility] Urea Nitrogen (BUN) 11 9 - 16 mg/dL [facility] Creatinine, Serum 0.63 0.5 - 1.4 mg/dL [facility] Estimated Glomerular Filt Rate >60 [facility] Comment:Chronic Kidney Disea se: Estimated GFR < 60 mL/min/[id number] Kidney Disease: Estimated GFR < 15 mL/min/1.73m2 Glucose 87 60 - 115 mg/dL [facility] Calcium 9.7 8.4 - 10.2 mg/dL [facility] Bilirubin, Total 0.5 0.0 - 1.0 mg/dL [facility] Aspartate Amino Transferase 22 5 - 31 U/L [facility] Alanine Aminotransferase 22 0 - 31 U/L [facility] Total Protein 8.6(H) 6.5 - 8.0 g/dL [facility] Albumin Level 4.3 3.5 - 5.0 g/dL [facility] Alkaline Phosphatase 82 39 - 117 U/L [facility] 04/04/2025 10:3 0 AM EDT 04/04/2025 11:15 AM EDT us Generic External Data Provider LAB BLOOD ORDERAB LES Final Result [facility] [address] [place] [address] [phone] * XR Elbow 3+ Views Left (04/04/2025 10:14 AM EDT) Only the most recent of2 resultswithin the time period is included. Anatomical Region Laterality Modality Upper Extremities, Elbow Left Radiogr aphic Imaging 04/04/2025 10:1 4 AM EDT Narrative 04/04/2025 11:12 AM EDT [facility] [address] [place] [address] XRay Report Signed Patient: Ginette Arceo MR #: [id number] : 1975 Acct:[id number] Age/Sex: 49 / F ADM Date: 04/04/25 Loc: HO.HHCX Attending Dr: Marychuy Bonilla NP Ordering Physician: MARYCHUY BONILLA NP Date of Service: 04/04/25 Procedure(s): XR elbow LT min 3V Accession Number(s): [id number] cc: Mackenzie Estrada; MARYCHUY BONILLA NP Reason [...] Madan Tijerina MD 04/04/2025 11:09 AM EDT Dictated By: Madan Nye MD Signed By: <Electronically signed by Madan Rose MD in OV> 04/04/25 1109 DD/ 1014 TD/TT: 04/04/25 1102 Digital Photographic Printer: Procedure Note Donotuseinterpreter, Image - 04/04/2025 [facility] [address] [place] [address] XRay Report Signed Patient: Ginette ArceoMR #: [id number] : 1975Acct:[id number] Age/Sex: 49 / FADM Date: 04/04/25 Loc: HO.HHCX Attending Dr: Marychuy Bonilla NP Ordering Physician: MARYCHUY BONILLA NP Date of Service: 04/04/25 Procedure(s): XR elbow LT min 3V Accession Number(s): [id number] cc: Mackenzie Estrada; MARYCHUY BONILLA NP Reason [...] Madan Tijerina MD 04/04/2025 11:09 AM EDT Dictated By: Madan Nye MD Signed By: <Electronically signed by Madan Rose MDin OV> 04/04/25 1109 DD/ 1014 TD/TT: 04/04/25 1102 Digital Photographic Printer: Marychuy Bonilla ANP IMG XR PROCEDURES Final [...] Unknown 03/12/2025 10:28 AM EDT Narrative Coral Somers, RN - 03/12/2025 10:28 AM EDT .UTOX cup Lot#[id number] Exp. 05/07/26 Internal Pass Control Sisi Kennedy SILK SPOOLER POINT OF CARE TEST ENTER/EDIT ORDERABLES Final Result * (ABNORMAL) Urinalysis, Complete, with Reflex to Culture (02/18/2025 10:44 AM EDT) Color Urine Yellow [facility] Appearance Urine Clear [facility] PH 6.0 5.0 - 9.0 [facility] Glucose Urine UA Negative Negative mg/dL [facility] Urine Blood Negative Negative [facility] Specific [place] - Urine 1.020 1.005 - 1.025 [facility] Urine Protein Negative Neg-Trace mg/dL [facility] Urine Ketones Negative Negative mg/dL [facility] Nitrite Urine Negative Negative [facility] Leukocyte Esterase Urine Small (1+)(A) Negative [facility] RBC Urine 0-2 0 - 2 /HPF [facility] Urine WBC 6-10(A) 0 - 5 /HPF [facility] Urine Squamous Epithelial Cell 11-20 0 - 2 /HPF [facility] Urine Bacteria Trace None Seen [facility] Hyaline Casts, Urine 0-2 0 - 2 /LPF [facility] 02/18/2025 10:4 4 AM EDT 02/18/2025 10:49 AM EDT Narrative [facility] - 02/18/2025 10:57 AM EDT [id number], Clean Catch us Generic External Data Provider LAB URINE ORDERAB LES Final Result [facility] [address] [place] [phone] * [facility] US Lower Extremity Venous Duplex Bilateral (02/18/2025 9:50 AM EDT) 02/18/2025 9:50 AM EDT Narrative [facility] - 02/18/2025 10:27 AM EDT [address] [address] Ultrasound Report Signed Patient: Ginette Arceo MR #: [id number] : 1975 Acct:[id number] Age/Sex: 49 / F ADM Date: 02/18/25 Loc: .ED Attending Dr: Ordering Physician: Jana Mcdaniel Date of Service: 02/18/25 Procedure(s): US venous duplex LE BI Accession Number(s): [id number] cc: Mackenzie Estrada; Jana Mcdaniel EXAMINATION: US [...] 02/18/25 1024 DD/ 0950 TD/TT: 02/18/25 1010 Digital Photographic Printer: Procedure Note Donotwilmarinterpreter, Image - 02/18/[address] [address] Ultrasound Report Signed Patient: Ginette ArceoMR #: [id number] : 1975Acct:[id number] Age/Sex: 49 / FADM Date: 02/18/25 Loc: .ED Attending Dr: Ordering Physician: Jana Mcdaniel Date of Service: 02/18/25 Procedure(s): US venous duplex LE BI Accession Number(s): [id number] cc: Mackenzie Estrada; Jana Mcdaniel EXAMINATION: US [...] 02/18/25 1024 DD/ 0950 TD/TT: 02/18/25 1010 Digital Photographic Printer: [facility] External Provider CV VASC ULAR PROCEDURES Final Result Performing Organization Address [facility] Co de Phone Number [facility] [address] [place] [phone] * High Sensitivity Troponin I (02/18/2025 8:49 AM EDT) Pathologist [facility] TROPONIN I HIGH SENSITIVITY <2.7 <3.5 - 17.0 ng/L [facility] Comment:The Shea high sens itivity Troponin-I results should beused in conjunction with other diagnostic information suchas ECG, clinical observations and information, and patientsymptoms to aid in the diagnosis of RI. 02/18/2025 8:49 AM EDT 02/18/2025 8:54 AM EDT Generic External Data Provider LAB BLOOD ORDERAB LES Final Result Performing Organization Address [facility] Co de Phone Number [facility] [address] [place] [phone] * SARS-CoV-2 RNA, Influenza A/B, and RSV RNA, Ql NAAT (02/18/2025 8:49 AM EDT) [facility] Influenza A PCR NEGATIVE Negative [facility] Influenza B PCR NEGATIVE Negative [facility] Resp Syncy Virus RNA Qual PCR NEGATIVE Negative [facility] SARS COV2 PCR NEGATIVE Negative [facility] Comment:All test results mus t be [...] use by authorized laboratories.Testing performed on the [employer] GeneXpert utilizingreal-time RT-PCR.All SARS CoV2 and positive influenza A/B results arereported to [facility]. 02/18/2025 8:49 AM EDT 02/18/2025 8:54 AM EDT Generic External Data Provider LAB MICROBIOLOGY - GENERAL ORDERABLES Final Result Performing Organization Address [facility] de Phone Number [facility] [address] [place] [phone] * (ABNORMAL) Sed Rate by Modified Joeyergren (02/18/2025 8:49 AM EDT) Only the most recent of3 resultswithin the time period is included. Pathologist [facility] Erythrocyte Sedimentation Rate 81(H) 0 - 20 MM/HR [facility] Comment:Patients with polycy themia and many hemoglobin abnormalitiesmay have depressed sed rates whereas patients with anemiamay have elevated sed rates. 02/18/2025 8:49 AM EDT 02/18/2025 8:54 AM EDT Generic External Data Provider LAB BLOOD ORDERAB LES Final Result Performing Organization Address [facility] Phone Number [facility] [address] [place] [address] [phone] * C-reactive Protein (02/18/2025 8:49 AM EDT) Only the most recent of2 resultswithin the time period is included. Pathologist [facility] C Reactive Protein 0.44 < or = 0.50 mg/dL [facility] 02/18/2025 8:49 AM EDT 02/18/2025 8:54 AM EDT Generic External Data Provider LAB BLOOD ORDERAB LES Final Result Performing Organization Address [facility] Co de Phone Number [facility] [address] [place] [phone] * B Type Natriuretic Peptide (BNP) (02/18/2025 8:49 AM EDT) Pathologist [facility] B Type Natriuretic Peptide 48 <100 pg/mL [facility] 02/18/2025 8:49 AM EDT 02/18/2025 8:54 AM EDT Generic External Data Provider LAB BLOOD ORDERAB LES Final Result Performing Organization Address [facility]/ZIP Co de Phone Number [facility] [address] [place] [address] [phone] * Magnesium (02/18/2025 8:49 AM EDT) Only the most recent of2 resultswithin the time period is included. [facility] Magnesium 2.2 1.6 - 2.6 mg/dL [facility] 02/18/2025 8:49 AM EDT 02/18/2025 8:54 AM EDT Generic External Data Provider LAB BLOOD ORDERAB LES Final Result Performing Organization Address [facility] de Phone Number [facility] [address] [place] [address] [phone] * Basic Metabolic Panel (02/18/2025 8:49 AM EDT) [facility] Sodium 140 135 - 145 mmol/L [facility] Potassium 4.6 3.3 - 5.1 mmol/L [facility] Comment:Slight Hemolysis.Int erpret result with caution. Chloride 106 96 - 108 mmol/L [facility] Carbon Dioxide 25 22 - 29 mmol/L [facility] Anion Gap 14 12 - 20 [facility] Urea Nitrogen (BUN) 12 9 - 16 mg/dL [facility] Creatinine, Serum 0.62 0.5 - 1.4 mg/dL [facility] Creatinine Clr Calc Pharmacy 120.9 [facility] Comment:Provided height and weight: 167.64 cm,83.6 kg.eGFR (calculated from the MDRD study equation) and eCrCl(calculated from the Cockcroft-Gault equation) are based ondifferent parameters and may not yield comparable results.If eCrCl result is absurd, please check patient'sheight/weight. Estimated Glomerular Filt Rate >60 [facility] Comment:Chronic Kidney Disea se: Estimated GFR < 60 mL/min/1.80j3Erjpxs Kidney Disease: Estimated GFR < 15 mL/min/1.73m2 Glucose 101 60 - 115 mg/dL [facility] Calcium 9.6 8.4 - 10.2 mg/dL [facility] 02/18/2025 8:49 AM EDT 02/18/2025 8:54 AM EDT us Generic External Data Provider LAB BLOOD ORDERAB LES Final Result Performing Organization Address City/[facility] de Phone Number [facility] [address] [place] [address] [phone] * XR Knee 3 Views Left (02/18/2025 8:14 AM EDT) Anatomical Region Laterality Modality Lower Extremities, Knee Left Radiogra phic Imaging 02/18/2025 8:14 AM EDT Narrative 02/18/2025 9:26 AM EDT [place] [address] XRay Report Signed Patient: Ginette Arceo MR #: [id number] : 1975 Acct:[id number] Age/Sex: 49 / F ADM Date: 02/18/25 Loc: .ED Attending Dr: Ordering Physician: Jana Mcdaniel Date of Service: 02/18/25 Procedure(s): XR knee LT 3V Accession Number(s): [id number] cc: Mackenzie Estrada; Jana Mcdaniel EXAMINATION: XR [...] in OV> 02/18/25922 DD/ 3 TD/TT: 02/18/25912 Digital Photographic Printer: MAGGIE Procedure Note Donotuseinterpreter, Image - 02/18/[address] [address] XRay Report Signed Patient: Ginette ArceoMR #: [id number] : 1975Acct:[id number] Age/Sex: 49 / FADM Date: 02/18/25 Loc: .ED Attending Dr: Ordering Physician: Jnaa Mcdaniel Date of Service: 02/18/25 Procedure(s): XR knee LT 3V Accession Number(s): [id number] cc: Mackenzie Estrada; Jana Mcdaniel EXAMINATION: XR [...] in OV> 02/18/25922 DD/ 3 TD/TT: 02/18/25912 Digital Photographic Printer: MAGGIE [facility] External Provider IMG XR PROCEDURES Final Result * XR Knee 3 Views Right (02/18/2025 8:11 AM EDT) Anatomical Region Laterality Modality Lower Extremities, Knee Right Radiogra phic Imaging 02/18/2025 8:11 AM EDT Narrative 02/18/2025 9:25 AM EDT [address] [address] XRay Report Signed Patient: Ginette Arceo MR #: [id number] : 1975 Acct:[id number] Age/Sex: 49 / F ADM Date: 02/18/25 Loc: HO.ED Attending Dr: Ordering Physician: Jana Mcdaniel Date of Service: 02/18/25 Procedure(s): XR knee RT 3V Accession Number(s): [id number] cc: Mackenzie Estrada; Jana Mcdaniel EXAMINATION: XR [...] by Jamie Avelar MD in OV> 02/18/25 0922 DD/ 0811 TD/TT: 02/18/25 0913 Digital Photographic Printer: [facility] Procedure Note Donotuseinterpreter, Image - 02/18/[address] [address] XRay Report Signed Patient: Ginette ArceoMR #: [id number] : 1975Acct:[id number] Age/Sex: 49 / FADM Date: 02/18/25 Loc: HO.ED Attending Dr: Ordering Physician: Jana Mcdaniel Date of Service: 02/18/25 Procedure(s): XR knee RT 3V Accession Number(s): [id number] cc: Mackenzie Estrada; Jana Mcdaniel EXAMINATION: XR [...] MD in OV> 02/18/25921 DD/ 0 TD/TT: 02/18/25 0913 Digital Photographic Printer: MAGGIE [facility] External Provider IMG XR PROCEDURES Final Result * XR Hand 3+ Views Right (02/18/2025 8:08 AM EDT) Anatomical Region Laterality Modality Upper Extremities, Hand Right Radiogra phic Imaging 02/18/2025 8:08 AM EDT Narrative 02/18/2025 9:30 AM EDT [place] [address] XRay Report Signed Patient: Ginette Arceo MR #: [id number] : 1975 Acct:[id number] Age/Sex: 49 / F ADM Date: 02/18/25 Loc: HO.ED Attending Dr: Ordering Physician: Jana Mcdaniel Date of Service: 02/18/25 Procedure(s): XR hand RT min 3V Accession Number(s): [id number] cc: Mackenzie Estrada; Jana Mcdaniel EXAMINATION: XR [...] in OV> 02/18/25926 DD/ 7 TD/TT: 02/18/25912 Digital Photographic Printer: MAGGIE Procedure Note Donotuseinterpreter, Image - 02/18/[address] [address] XRay Report Signed Patient: Ginette ArceoMR #: [id number] : 1975Acct:[id number] Age/Sex: 49 / FADM Date: 02/18/25 Loc: .ED Attending Dr: Ordering Physician: Jana Mcdaniel Date of Service: 02/18/25 Procedure(s): XR hand RT min 3V Accession Number(s): [id number] cc: Mackenzie Estrada; Jana Mcdaniel EXAMINATION: XR [...] in OV> 02/18/25926 DD/ 08 TD/TT: 02/18/25912 Digital Photographic Printer: MSM [facility] External Provider IMG XR PROCEDURES Final Result * Culture, Urine, Routine (02/18/2025 12:00 AM EDT) Urine Urine specimen obtained by clean catch procedure / Unknown 02/18/2025 02/18/2025 Comment:UACC Narrative [facility] - 02/19/2025 9:03 AM EDT Strep agalactiae (Grp B) Quant 50,000 to 100,000 cfu/mL Susc N/A Susceptibility not routinely performed on this isolate. Specimen Source: Urine clean catch Generic External Data Provider LAB MICROBIOLOGY - GENERAL ORDERABLES Final Result Performing Organization Address City/State/[facility] Co de Phone Number [facility] [address] [place] [phone] * XR Foot 3+ Views Left (02/04/2025 9:33 AM EDT) Only the most recent of2 resultswithin the time period is included. Anatomical Region Laterality Modality Lower Extremities, Foot Left Radiogra phic Imaging 02/04/2025 9:33 AM EDT Narrative 02/04/2025 9:35 AM EDT [address] [address] XRay Report Signed Patient: Ginette Arceo MR #: [id number] : 1975 Acct:[id number] Age/Sex: 49 / F ADM Date: 02/04/25 Loc: HO.ED Attending Dr: Ordering Physician: Raymon Fregoso MD Date of Service: 02/04/25 Procedure(s): XR foot LT min 3V Accession Number(s): [id number] cc: Raymon Fregoso MD; Mackenzie Estrada CLINICAL HISTORY: lt foot pain Exam: Left foot three views Comparison: CR/MI/SR - XR FOOT LT MIN 3V - [...] Gaitan MD Signed By: <Electronically signed by Eedlmira Gaitan MD in OV> 02/04/25934 DD/ 2 TD/TT: 02/04/25932 Digital Photographic Printer: Procedure Note Donotuseinterpreter, Image - 02/04/2025 [place] [address] XRay Report Signed Patient: Ginette ArceoMR #: [id number] : 1975Acct:[id number] Age/Sex: 49 / FADM Date: 02/04/25 Loc: HO.ED Attending Dr: Ordering Physician: Raymon Fregoso MD Date of Service: 02/04/25 Procedure(s): XR foot LT min 3V Accession Number(s): [id number] cc: Raymon Fregoso MD; Mackenzie Estrada CLINICAL HISTORY: lt foot pain Exam: Left foot three views Comparison: CR/MI/SR - XR FOOT LT MIN 3V - [...] in OV> 02/04/25934 DD/ 2 TD/TT: 02/04/25932 Digital Photographic Printer: [facility] External Provider IMG XR PROCEDURES Final Result * XR Ankle 3+ Views Left (02/04/2025 9:26 AM EDT) Only the most recent of2 resultswithin the time period is included. Anatomical Region Laterality Modality Lower Extremities, Ankle Left Radiogr aphic Imaging 02/04/2025 9:26 AM EDT Narrative 02/04/2025 9:28 AM EDT [address] [address] XRay Report Signed Patient: Ginette Arceo MR #: [id number] : 1975 Acct:[id number] Age/Sex: 49 / F ADM Date: 02/04/25 Loc: HO.ED Attending Dr: Ordering Physician: Raymon Fregoso MD Date of Service: 02/04/25 Procedure(s): XR ankle LT min 3V Accession Number(s): [id number] cc: Raymon Fregoso MD; Mackenzie Estrada CLINICAL HISTORY: lt ankle pain 3 view left ankle Comparison: CR/MI/SR - XR ANKLE LT MIN 3V - [...] in OV> 02/04/25926 DD/ 5 TD/TT: 02/04/25925 Digital Photographic Printer: Procedure Note Donotuseinterpreter, Image - 02/04/[address] [address] XRay Report Signed Patient: Ginette ArceoMR #: [id number] : 1975Acct:[id number] Age/Sex: 49 / FADM Date: 02/04/25 Loc: HO.ED Attending Dr: Ordering Physician: Raymon Fregoso MD Date of Service: 02/04/25 Procedure(s): XR ankle LT min 3V Accession Number(s): [id number] cc: Raymon Fregoso MD; Mackenzie Estrada CLINICAL HISTORY: lt ankle pain 3 view left ankle Comparison: CR/MI/SR - XR ANKLE LT MIN 3V - [...] in OV> 02/04/25926 DD/ 5 TD/TT: 02/04/25925 Digital Photographic Printer: [facility] External Provider IMG XR PROCEDURES Final Result * US VENOUS DUPLEX LE LT (01/17/2025 12:19 PM EDT) Anatomical Region Laterality Modality Abdomen Ultrasound 01/17/2025 12:1 9 PM EDT Narrative 01/17/2025 1:51 PM EDT [address] [address] Ultrasound Report Signed Patient: Ginette Arceo MR #: [id number] : 1975 Acct:[id number] Age/Sex: 49 / F ADM Date: 01/17/25 Loc: HO.ED Attending Dr: Ordering Physician: Jana Mcdaniel Date of Service: 01/17/25 Procedure(s): US venous duplex LE LT Accession Number(s): [id number] cc: Mackenzie Estrada; Jana Mcdaniel EXAMINATION: US [...] 01/17/25 1348 DD/ 1219 TD/TT: 01/17/25 1331 Digital Photographic Printer: Procedure Note Donotuseinterpreter, Image - 01/17/2025 [place] [address] Ultrasound Report Signed Patient: Ginette ArceoMR #: [id number] : 1975Acct:[id number] Age/Sex: 49 / FADM Date: 01/17/25 Loc: .ED Attending Dr: Ordering Physician: Jana Mcdaniel Date of Service: 01/17/25 Procedure(s): US venous duplex LE LT Accession Number(s): [id number] cc: Mackenzie Estrada; Jana Mcdaniel EXAMINATION: US [...] 01/17/25 1348 DD/ 1219 TD/TT: 01/17/25 1331 Digital Photographic Printer: [facility] External Provider IMG US PROCEDURES Final Result * Hepatitis C Ab (04/11/2024 10:26 AM EDT) Hepatitis C Antibody Nonreactive Nonreactive [facility] Comment:Antibodies to HCV no t detected; does not exclude early acuteHCV infection. Blood Venous blood specimen / Unknown 04/11/2024 10:26 AM EDT 04/11/2024 11:19 AM EDT Result [facility] Mackenzie Estrada MD LAB BLOOD ORDERABLES Final Res ult [facility] [address] [place] [phone] * HIV-1/2 Antigen and Antibodies, Fourth Generation, with Reflexes (04/11/2024 10:26 AM EDT) HIV AB/AG Nonreactive Nonreactive [facility] Comment:HIV-1 p24 Ag and/or HIV-1/HIV-2 Ab not detected.A test result that is nonreactive does not exclude thepossibility of exposure to or infection with HIV-1 and/orHIV-2. Nonreactive results in this assay for individualswith prior exposure to HIV-1 and/or HIV-2 may be due toantigen and antibody levels that are below the limit ofdetection of this assay.The [employer] HIV Ag/Ab Combo assay result andsupplemental assay results should be interpreted inconjunction with the patient's clinical presentation,history and other laboratory results. If the results areinconsistent with clinical evidence, additional testing issuggested to confirm the result. Blood Venous blood specimen / Unknown 04/11/2024 10:26 AM EDT 04/11/2024 11:19 AM EDT us Mackenzie Estrada MD LAB BLOOD ORDERABLES Final Res ult [facility] [address] [place] [phone] * HPV mRNA E6/E7 w/Reflex to HPV Genotypes 16, 18/45 (09/29/2023 12:26 PM EST) HPV nRNA E6/E7 Not Detected Not Detected [facility] Comment:Methodology: Transcr iption-Mediated AmplificationThis assay detects E6/E7 viral messenger RNA (mRNA) from 14high-risk HPV types (16,18,31,33,35,39,45,51,52,56,58,59,66,68).Cervical sources are required for HPV testing.If a vaginal source from a patient who has had atotal hysterectomy with removal of cervix wassubmitted, please contact the testing laboratoryfor alternative testing options.For additional information, please refer tohttp://education.[employer]/faq/ORY937e3(This link if provided for information/educational purposes only.)THIS TEST WAS PERFORMED AT:[employer] [place] [phone] GALVAN MD HPV mRNA E6/E7 [facility] HPV 16 RNA [facility] HPV 18/45 RNA [facility] 09/29/2023 12:2 6 PM EST 09/30/2023 11:30 AM EST Mackenzie Estrada MD LAB CYTOLOGY ORDERABLES Final Result [facility] [address] [place] [phone] * Pap Smear (09/29/2023 12:26 PM EST) 09/29/2023 12:2 6 PM EST 09/30/2023 11:30 AM EST Narrative [facility] - 10/12/2023 4:18 PM EDT ----- ------- Name: Ovidio LacyGinette barron Age/Sex: 48/F : 1975 Unit#: [id number] Attend Dr: Mackenzie Estrada Re09/29/23 Status: [facility] REF Location: HO.HHCX Disch: ----- ------- SPEC : [id number] RECD: 09/30/23-113 STATUS: NIRMALA PEREZ NUM: [id number] BHAVIN: 09/29/23-[address]: Mackenzie Estrada ENTERED: 09/30/23-1325 SP TYPE: Pap Smr OTHR DR: ORDERED: Pap Smear Interpretation Satisfactory for evaluation. Negative for intraepithelial lesion or malignancy. HPV mRNA E6/E7: NOT DETECTED This assay detects E6/E7 viral messenger RNA (mRNA) from 14 high-risk HPV types (16, 18, 31, 33, 35, 39, 45, 51, 52, 56, 58, 59, 66, 68) HPV testing performed by [employer], [place], [place]. See reference laboratory portion of the EMR for entire report. Clinical Information LMP: Heavy menstrual bleeding past two weeks Previous PAP test: Unknown date/findings Other history: Material Received ThinPrep-Cervical ----- ------- Signed (signature on file) BARB Hawley (ASCP) 10/12/23 1618 ----- ------- END OF REPORT Mackenzie Estrada MD LAB CYTOLOGY ORDERABLES Final Result [facility] [address] [place] [phone] * Mammography Report 1 (10/09/2021 12:05 [...] LDL-C. Hi SS et al. ROXY. 2013;310(19): 1059-8121 (http://education.[employer]/faq/NDE976) Non-HDL Cholesterol 175(H) <130 mg/dL (calc) [facility] [...] MD LAB BLOOD ORDERABLES Final Res ult [facility] [address] * Colonoscopy (10/28/2017) Colonoscopy Normal Normal Narrative Cecilia Henriquez - 10/28/2017 Recommended 10 year follow up ([facility]) Historical Provider HEALTH MAINTENANCE Edited Result - Final from Last 3 Months or Most Recently Relevant to Health Maintenance Insurance [facility] [address] [place], [place] DENTAL-[employer] MEDICAID STAND ADULT Care Teams Digital Strategy Manager Relationship Specialty Start Date End Date Mackenzie Estrada MD [address] [place] [address] PCP - General Family Medicine 07/10/20 Hemalatha Pretty Manager DairyLiquid Yeast Supervisor 01/02/25
--- OUTSIDE RECORDS SUMMARY | 2025-04-17 13:35 | XMS_ITS | Encounter Summary ---
Author Organization [employer] Address [address] [facility] 7t [place] [address] Care Team Providers Care Credit Adjuster Name Role Phone Mackenzie sEtrada MD Primary Care Provider Casper Magaña RN Unavailable [phone] Ruth Ann Price Unavailable Unavailable Ruth Ann Price Unavailable Ruth Ann Price Unavailable Encounter Details Date Type Department Care Team (Late Contact Info) Description 03/29/2023 Abstract [facility] [address] [place] [address] [phone] Cecilia Henriquez Social History Tobacco Use Types [...] Description 05/14/2025 9:45 AM EDT Office Visit [facility] [address] [place] [address] 06/07/2025 3:45 PM EST Office Visit [facility] [address] [place] [address] [phone] Mackenzie Estrada MD [address] [place] [address] documented as of this encounter Procedures Procedure Name Priority Date/Time Associated Diagnosis Comments COLONOSCOPY Routine 10/28/2017 documented in this encounter Results * Colonoscopy (10/28/2017) Colonoscopy Normal Normal Narrative Cecilia Henriquez - 10/28/2017 Recommended 10 year follow up ([facility]) us Historical Provider [employer] MAINTENANCE Edited Result - Final documented in this encounter Visit Diagnoses Not on filedocumented in this encounter Care Teams Credit Adjuster Relationship Specialty Start Date End Date Mackenzie Estrada MD [address] [place] [address] PCP - General Family Medicine 07/10/20 Casper Magaña, RN [address] [place] [address] Registered Nurse Family Medicine 01/18/25 01/18/25 Ruth Ann Price 02/19/25 02/19/25 Ruth Ann Price 02/19/25 02/28/25 Ruth Ann Price 03/29/25 04/03/25 Hemalatha Pretty City EditorDental Assisting Instructor 01/02/25 documented as of this encounter
--- OUTSIDE RECORDS SUMMARY | 2025-04-17 13:35 | XMS_ITS | Encounter Summary ---
Author Organization [employer] Address [address] [facility] 7t [place] [address] Care Team Providers Care Tool Honing Machine Set Up Operator Name Role Phone Mackenzie Estrada MD Primary Care Provider [phone] Casper Magaña RN Unavailable [phone] Ruth Ann Price Unavailable Unavailable Ruth Ann Price Unavailable Ruth Ann Price Unavailable Reason for Visit * Reason Comments Med Refill Encounter Details Date Type Department Care Team (Late st Contact Info) Description 06/03/2023 Refill [facility] [address] [place] [address] Mackenzie Estrada MD [address] [place], [place] [phone] Pain in both hands Social History Tobacco [...] Description 05/14/2025 9:45 AM EDT Office Visit [facility] [address] [place] [address] 06/07/2025 3:45 PM EST Office Visit [address] [address] Mackenzie Estrada MD [address] [place] [address] documented as of this encounter Goals Goal Patient Goal Type Associated Problems Recent Progress Patient-Stated? Author Quit using tobacco (cigarettes, smokeless, etc) Tobacco Use No Corey Lin, Bailey documented as of this encounter Visit Diagnoses Diagnosis Pain in both hands documented in this encounter Care Teams Tool Honing Machine Set Up Operator Relationship Specialty Start Date End Date Mackenzie Estrada MD [address] [place] [address] PCP - General Family Medicine 07/10/20 Casper Magaña, JENNIFER [address] [place] [address] Registered Nurse Family Medicine 01/18/25 01/18/25 Ruth Ann Price 02/19/25 02/19/25 Ruth Ann Price 02/19/25 02/28/25 Ruth Ann Price 03/29/25 04/03/25 Hemalatha Pretty Stationary Steam EngineerHelminthologist 01/02/25 documented as of this encounter
--- OUTSIDE RECORDS SUMMARY | 2025-04-17 13:35 | XMS_ITS | Clinical Summary ---
Author Organization [facility] Address [address] [place] [address] Support Name Relationship Address Phone Brayden Hernandez Emergency Contact [address] [place] [address] Care Team Providers Care Plastic Parts Fabricator Trimmer Name Role Phone Abdullahi Lizarraga MD Primary Care Provider [phone] Allergies Active Allergy Reactions Criticality Noted Date [...] age to complete this topic Care Teams Plastic Parts Fabricator Trimmer Relationship Specialty Start Date End Date Abdullahi Lizarraga MD [address] [place] [address] PCP - General Nephrology 03/10/18
--- OUTSIDE RECORDS SUMMARY | 2025-04-17 13:35 | XMS_ITS | Encounter Summary ---
Author Organization [employer] Address [address] [facility] [address] 7t [place] [address] Care Team Providers Care Facility Worker Name Role Phone Mackenzie Estrada MD Primary Care Provider [phone] Casper Magaña RN Unavailable [phone] Ruth Ann Price Unavailable Unavailable Ruth Ann Price Unavailable Ruth Ann Price Unavailable Encounter Details Date Type Department Care Team (Late st Contact Info) Description 06/03/2023 Orders Only [facility] [address] [place] [address] Mackenzie Estrada MD [address] [place], [place] [phone] Pain in both hands Social History Tobacco [...] 05/14/2025 9:45 AM EDT Office Visit [facility] [address] [place] [address] 06/07/2025 3:45 PM EST Office Visit [address] [address] Mackenzie Estrada MD [address] [place] [address] documented as of this encounter Goals Goal [...] PM EST Narrative 06/03/2023 5:47 PM EDT [address] [address] XRay Report Signed Patient: Ginette Arceo MR #: [id number] : 1975 Acct:[id number] Age/Sex: 47 / F ADM Date: 06/25/23 Loc: HO.ED Attending Dr: Ordering Physician: Treasure Clemons Date of Service: 06/25/23 Procedure(s): XR chest 2V Accession Number(s): [id number] cc: Mackenzie Estrada; Treasure Clemons EXAMINATION: XR [...] in OV> 06/25/23 1230 DD/ 1215 TD/TT: Sheet Cutting Operator: [facility] Procedure Note Donotuseinterpreter, Image - 06/25/[address] [address] XRay Report Signed Patient: Ginette ArceoMR #: [id number] : 1975Acct:[id number] Age/Sex: 47 / FADM Date: 06/25/23 Loc: HO.ED Attending Dr: Ordering Physician: Treasure Clemons Date of Service: 06/25/23 Procedure(s): XR chest 2V Accession Number(s): [id number] cc: Mackenzie Estrada; Treasure Clemons EXAMINATION: XR [...] in OV> 06/25/23 1230 DD/ 1215 TD/TT: Sheet Cutting Operator: [facility] External Provider IMG XR PROCEDURES Edited Result - Final * (ABNORMAL) Urinalysis, Complete, with Reflex to Culture (06/03/2023 4:49 PM EDT) Color Urine Yellow [facility] Appearance Urine Clear [facility] PH 5.5 5.0 - 9.0 [facility] Glucose Urine UA Negative Negative mg/dL [facility] Urine Blood Large (3+)(A) Negative [facility] Specific [place] - Urine 1.025 1.005 - 1.025 [facility] Urine Protein Negative Neg-Trace mg/dL [facility] Urine Ketones Negative Negative mg/dL [facility] Nitrite Urine Negative Negative [facility] Leukocyte Esterase Urine Negative Negative [facility] RBC Urine >20(A) 0 - 2 /HPF [facility] Urine WBC 0-5 0 - 5 /HPF [facility] Urine Squamous Epithelial Cell 11-20 0 - 2 /HPF [facility] Urine Bacteria 1+ None Seen [facility] Hyaline Casts, Urine 0-2 0 - 2 /LPF [facility] 06/03/2023 4:49 PM EDT 06/03/2023 4:52 PM EDT Narrative [facility] - 06/03/2023 5:00 PM EDT Urine, Clean Catch us Generic External Data Provider LAB URINE ORDERAB LES Final Result Performing Organization Address [facility] de Phone Number [facility] [address] [place] [phone] * (ABNORMAL) Urinalysis w/reflex microscopic (06/03/2023 4:49 PM EDT) Color Urine Yellow [facility] Appearance Urine Clear [facility] PH 5.5 5.0 - 9.0 [facility] Glucose Urine UA Negative Negative mg/dL [facility] Urine Blood Large (3+)(A) Negative [facility] Specific [place] - Urine 1.025 1.005 - 1.025 [facility] Urine Protein Negative Neg-Trace mg/dL [facility] Urine Ketones Negative Negative mg/dL [facility] Nitrite Urine Negative Negative [facility] Leukocyte Esterase Urine Negative Negative [facility] 06/03/2023 4:49 PM EDT 06/03/2023 4:52 PM EDT [facility] - 06/03/2023 4:57 PM EDT Urine, Clean Catch Generic External Data Provider LAB URINE ORDERAB LES Final Result Performing Organization Address [facility] de Phone Number [facility] [address] [place] [phone] * Influenza A B2 ID NOW (Corona) (06/03/2023 4:34 PM EDT) IDNOW SERIAL# [id number] [facility] Influenza A Negative Negative [facility] Influenza B2 Negative Negative [facility] Influenza A B2 Note See Note [facility] Comment:The Corona ID NOW In [...] LAB MICROBIOLOGY - GENERAL ORDERABLES Final Result [facility] [address] [place] [phone] [phone] * COVID-19 ID NOW ([place]) (06/03/2023 4:34 PM EDT) IDNOW SERIAL# [id number] [facility] COVID-19 TEST Negative Negative [facility] COVID-19 NOTE See Note [facility] Comment: Results are for the identification of SARS-CoV2 RNA. TheSARS-CoV2 RNA is generally detectable in respiratory samplesduring the acute phase of infection. Positive results areindicative of the presence of SARS-CoV-2 RNA; clinicalcorrelation with patient history and other diagnosticinformation is necessary to determine patient infectionstatus. Positive results do not rule out bacterial infectionor co- infection with other viruses.Testing facilities within the [facility] and itsterritories are required to report [...] use by authorized laboratories.Testing performed on the I-Shake ID NOW utilizing NAAT. 06/03/2023 4:34 PM EDT 06/03/2023 4:40 PM EDT us Generic External Data Provider LAB MOLECULAR ARNAV GNOSTICS ORDERABLES Final Result [facility] [address] [place] [address] [phone] documented in this encounter Visit Diagnoses Diagnosis Pain in both hands documented in this encounter Care Teams Facility Worker Relationship Specialty Start Date End Date Mackenzie Estrada MD [address] [place] [address] PCP - General Family Medicine 07/10/20 Casper Magaña, RN [address] [place] [address] Registered Nurse Family Medicine 01/18/25 01/18/25 Ruth Ann Price 02/19/25 02/19/25 Ruth Ann Price 02/19/25 02/28/25 Ruth Ann Price 03/29/25 04/03/25 Hemalatha Pretty Data Management AnalystSenior Accounts Payable Clerk 01/02/25 documented as of this encounter
--- OUTSIDE RECORDS SUMMARY | 2025-04-17 13:35 | XMS_ITS | Encounter Summary ---
Author Organization [employer] Address 75 [facility] 7t [place] [address] Care Team Providers Care Precision Thread Grinder Operator Name Role Phone Mackenzie Estrada MD Primary Care Provider [phone] Casper Magaña RN Unavailable [phone] Ruth Ann Price Unavailable Unavailable Ruth Ann Price Unavailable Ruth Ann Price Unavailable Reason for Visit * Reason Comments Med Refill Encounter Details Date Type Department Care Team (Late st Contact Info) Description 07/28/2022 Refill [facility] [address] [place] [address] Mackenzie Estrada MD [address] [place] [address] Pain in both hands Social History Tobacco [...] Description 05/14/2025 9:45 AM EDT Office Visit [address] [address] 06/07/2025 3:45 PM EST Office Visit [address] [address] Mackenzie Estrada MD [address] [place] [address] documented as of this encounter Visit Diagnoses Diagnosis Pain in both hands documented in this encounter Care Teams Precision Thread Grinder Operator Relationship Specialty Start Date End Date Mackenzie Estrada MD [address] [place] [address] PCP - General Family Medicine 07/10/20 Casper Magaña, JENNIFER [address] [place] [address] Registered Nurse Family Medicine 01/18/25 01/18/25 Ruth Ann Price 02/19/25 02/19/25 Ruth Ann Price 02/19/25 02/28/25 Ruth Ann Price 03/29/25 04/03/25 Hemalatha Pretty Supervisor Machine SetterEngineer Station Mainline 01/02/25 documented as of this encounter
--- OUTSIDE RECORDS SUMMARY | 2025-04-17 13:35 | XMS_ITS | Encounter Summary ---
Author Organization [facility] Address [address] [facility] 7t [place] [address] Care Team Providers Care Outside Rigger Name Role Phone Mackenzie Estrada MD Primary Care Provider [phone] Casper Magaña RN Unavailable [phone] Ruth Ann Price Unavailable Unavailable Ruth Ann Price Unavailable Ruth Ann Price Unavailable Reason for Visit * Reason Comments Med Refill Encounter Details Date Type Department Care Team ([facility] Contact Info) Description 08/25/2022 Refill [facility] [address] [place] [address] Mackenzie Estrada MD [address] [place] [address] Pain in both hands Social History Tobacco [...] [facility] Contact Info) Description 05/14/2025 9:45 AM EDT Office Visit [address] [address] 06/07/2025 3:45 PM EST Office Visit [address] [address] Mackenzie Estrada MD [address] [place] [address] documented as of this encounter Visit Diagnoses Diagnosis Pain in both hands documented in this encounter Care Teams Outside Rigger Relationship Specialty Start Date End Date Mackenzie Estrada MD [address] [place] [address] [phone] PCP - General Family Medicine 07/10/20 Casper Magaña, RN [address] [place] [address] Registered Nurse Family Medicine 01/18/25 01/18/25 Ruth Ann Price 02/19/25 02/19/25 Ruth Ann Price 02/19/25 02/28/25 Ruth Ann Price 03/29/25 04/03/25 Hemalatha Pretty Cooler ManBand Cutter 01/02/25 documented as of this encounter
--- OUTSIDE RECORDS SUMMARY | 2025-04-17 13:35 | XMS_ITS | Encounter Summary ---
Author Organization [employer] Address [address] [facility] 7t [place] [address] Care Team Providers Care Graphics Production Specialist Name Role Phone Mackenzie Estrada MD Primary Care Provider [phone] Casper Magaña RN Unavailable [phone] Ruth Ann Price Unavailable Unavailable Ruth Ann Price Unavailable Ruth Ann Price Unavailable Reason for Visit * Reason Comments Med Refill Encounter Details Date Type Department Care Team (Late st Contact Info) Description 07/27/2023 Refill [facility] [address] [place] [address] Name, MD Mark [address] [place] [address] Pain in both hands Social History Tobacco [...] Description 05/14/2025 9:45 AM EDT Office Visit [facility] [address] [place] [address] 06/07/2025 3:45 PM EST Office Visit [address] [address] Mackenzie Estrada MD [address] [place] [address] documented as of this encounter Goals Goal Patient Goal Type Associated Problems Recent Progress Patient-Stated? Author Quit using tobacco (cigarettes, smokeless, etc) Tobacco Use No Corey Lin, Bailey documented as of this encounter Visit Diagnoses Diagnosis Pain in both hands documented in this encounter Care Teams Graphics Production Specialist Relationship Specialty Start Date End Date Mackenzie Estrada MD [address] [place] [address] PCP - General Family Medicine 07/10/20 Casper Magaña, JENNIFER [address] [place] [address] Registered Nurse Family Medicine 01/18/25 01/18/25 Ruth Ann Price 02/19/25 02/19/25 Ruth Ann Price 02/19/25 02/28/25 Ruth Ann Price 03/29/25 04/03/25 Hemalatha Pretty Director ChinaCharge Gang Weigher 01/02/25 documented as of this encounter
--- OUTSIDE RECORDS SUMMARY | 2025-04-17 13:35 | XMS_ITS | Encounter Summary ---
Author Organization [employer] Address 75 [facility] 7t [place] [address] Care Team Providers Care Assistant Director Name Role Phone Mackenzie Estrada MD Primary Care Provider [phone] Casper Magaña RN Unavailable [phone] Ruth Ann Price Unavailable Unavailable Ruth Ann Price Unavailable Ruth Ann Price Unavailable Reason for Visit * Reason Onset Date Comments Error 08/16/2023 Encounter Details Date Type Department Care Team ([facility] st Contact Info) Description 08/16/2023 Telephone [facility] [address] [place], [place] [phone] Mackenzie Estrada MD [address] [place], [place] [phone] Error Social History Tobacco Use Types Packs/Day [...] Description 05/14/2025 9:45 AM EDT Office Visit [address] [address] 06/07/2025 3:45 PM EST Office Visit [address] [address] Mackenzie Estrada MD [address] [place] [address] documented as of this encounter Goals Goal Patient Goal Type Associated Problems Recent Progress Patient-Stated? Author Quit using tobacco (cigarettes, smokeless, etc) Tobacco Use No Corey Lin, Bailey documented as of this encounter Visit Diagnoses Not on filedocumented in this encounter Care Teams Assistant Director Relationship Specialty Start Date End Date Mackenzie Estrada MD [address] [place] [address] PCP - General Family Medicine 07/10/20 Casper Magaña, JENNIFER [address] [place] [address] Registered Nurse Family Medicine 01/18/25 01/18/25 Ruth Ann Price 02/19/25 02/19/25 Ruth Ann Price 02/19/25 02/28/25 Ruth Ann Price 03/29/25 04/03/25 Hemalatha Pretty Speech And Language ClinicianBox Turner 01/02/25 documented as of this encounter
== END 2025-04-17 12:20 | disposition home or self-care (01) ==
LOC: HO.RHES 10:44
PROVIDERS: PCP General Practice; Visit Provider Student in an Organized Health Care Education/Training Program
DX: M05.79 Rheumatoid arthritis with rheumatoid factor of multiple sites without organ or systems involvement (principal); R22.33 Localized swelling, mass and lump, upper limb, bilateral; M70.61 Trochanteric bursitis, right hip; M17.11 Unilateral primary osteoarthritis, right knee; Z51.81 Encounter for therapeutic drug level monitoring; Z79.620 Long term (current) use of immunosuppressive biologic; Z79.631 Long term (current) use of antimetabolite agent
CPT/HCPCS: 20610; 99214

== ENCOUNTER → 2025-04-17 10:44 | Outpatient (BNVA) | payer MEDICAID, SELFPAY | PROVIDERS: PCP General Practice; Visit Provider Student in an Organized Health Care Education/Training Program | DX: M05.70 Rheumatoid arthritis with rheumatoid factor of unspecified site without organ or systems involvement (principal); R22.33 Localized swelling, mass and lump, upper limb, bilateral; Z51.81 Encounter for therapeutic drug level monitoring; Z79.52 Long term (current) use of systemic steroids; Z79.631 Long term (current) use of antimetabolite agent; Z79.01 Long term (current) use of anticoagulants; Z79.620 Long term (current) use of immunosuppressive biologic; Z79.899 Other long term (current) drug therapy | CPT/HCPCS: 20610; 99212; J2003; J3301 ==

== ENCOUNTER 2025-05-07 13:11 | Outpatient (AMB) | payer MEDICAID, SELFPAY ==
--- NOTE | 2025-05-07 13:31 | MHC.OFFVIS ---
Vital Signs 05/07/25 13:39 Height 5 ft 2 in Weight 189 lb BMI 34.6 BP 133/67 Blood Pressure Location Lt brachial Position Sitting Pulse 77 Intake Visit Reasons: noduel bilateral elbows Intake Note: Patient is seen in office for bilateral swollen nodules of the elbows. Pt c/o: onset 3 yrs, admits to discharge on the left side, has increase in size and quantity, was on abx, painful, was in-patient at [facility] [place] due to infection of the elbows culture:04/09/25 Adoption Coordinator Required: Yes Adoption Coordinator Language: Information Management Specialist Services: Adoption Coordinator Present Adoption Coordinator Name: Thi MOON Accompanied by: Self / Same As Patient Allergies almond (ALMONDS) Allergy (Severe, Verified 05/07/25 13:39) ANAPHYLAXIS adhesive tape (ADHESIVE TAPE) Allergy (Intermediate, Verified 05/07/25 13:39) RASH morphine (MORPHINE) Allergy (Intermediate, Verified 05/07/25 13:39) GI UPSET, difficulty breathing leflunomide Adverse Reaction (Intermediate, Verified 05/07/25 13:39) twitching tramadol (TRAMADOL) Adverse Reaction (Unknown, Verified 05/07/25 13:39) NAUSEA & VOMITING Medication List - Last Reconciled 05/07/25 by Morgan Dean MD acetaminophen (Tylenol Extra Strength) 1,000 mg (2 x 500 mg) PO Q8H PRN albuterol sulfate 90 mcg/actuation 2 puffs inhalation Q6H PRN alprazolam 1 mg PO BEDTIME PRN apixaban (Eliquis) 5 mg PO BID ascorbic acid (vitamin C) (Vitamin C) 1,000 mg (2 x 500 mg) PO QAM atorvastatin 80 mg PO DAILY cetirizine 10 mg PO QAM cholecalciferol (vitamin D3) (Vitamin D3) 25 mcg PO DAILY clopidogrel 75 mg PO DAILY cyclobenzaprine 5 mg PO TID PRN 7 days docusate sodium 100 mg PO BID famotidine 20 mg PO BID ferrous sulfate 325 mg PO QAM gabapentin 400 mg PO TID metoprolol succinate ER 50 mg PO DAILY nicotine 1 patch topical QAM prednisone 5 mg PO DAILY risperidone 0.5 mg PO DAILY PRN sertraline (Zoloft) 75 mg PO DAILY sulfamethoxazole-trimethoprim 400-80 mg (Bactrim) 1 tab PO DAILY trazodone 150 mg PO BEDTIME PRN umeclidinium 62.5 mcg/actuation (Incruse Ellipta) 1 inh inhalation DAILY ursodiol 250 mg PO BID vitamin A 1 cap PO QAM HPI Comments Details: 41-year-old female patient presenting for evaluation of bilateral elbow cysts. She recently developed an infection associated with the left side. A culture was sent however no growth was noted after 2 days. She reports continued discharge on occasion from both sides left greater than right. She denies a history of gout but does have a history of lupus. She notes swelling in the left hand with the associated pain. She also has a cardiac history and previously underwent cardiac stenting. She is currently on oral anticoagulation (Eliquis) and antiplatelet therapy (Plavix). She is requesting excision of the left symptomatic cyst. [facility] Medical History PAD (peripheral artery disease) Skin lesion Anxiety Achilles tendinitis Superficial femoral artery occlusion Knee pain, left Depression Hx of peripheral pulmonary artery stenosis History of chemotherapy Cancer of heart Bone cancer Lung cancer Iron deficiency Seropositive rheumatoid arthritis Bleeding hemorrhoid Degeneration, intervertebral disc, lumbar Chronic GERD Degeneration of intervertebral disc at C4-C5 level Osteoarthritis of spine with radiculopathy, lumbar region Fibromyalgia Esophageal dysphagia Vitamin D deficiency Systemic lupus erythematosus Seropositive rheumatoid arthritis Rheumatoid arthritis involving multiple sites Gallstones Stress incontinence in female Nocturia Urgency-frequency syndrome De Quervain's disease (tenosynovitis) Depressive disorder Acute arthritis Hodgkin disease Surgical History History of heart surgery History of surgical removal of skin lesion (~07/13/23) History of angioplasty of vein History of biopsy H/O tubal ligation Hx of endoscopy Hx laparoscopic cholecystectomy Hx of colonoscopy History of esophagogastroduodenoscopy (EGD) History of repair of inguinal hernia History of lymph node dissection of left axilla Family History Maternal Grandmother Ovarian cancer Social History Household Members: Significant Other Housing: Apartment Are you a primary lawn care specialist to a significant other at home: No Unable to assess alcohol history related to: Unknown Alcohol intake: never Comment: son at bedside Patient Tobacco Use Status: Never used Tobacco Tobacco use type: Cigarette Cigarette Packs Per Day: 1 Cigarettes Per Day: 20.0 Substance Use Type: Marijuana Advance Directives Date on File: 02/24/24 service: No Current occupational status: disabled 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 of Systems Const All systems reviewed & are unremarkable except as noted in HPI and below Musc Reports arthralgias and Reports joint swelling Skin/Breast Reports furuncle and Reports pruritus Physical Exam Vital Signs: Last Vital Signs Pulse 77 05/07/25 13:39 BP 133/67 05/07/25 13:39 BMI result Body Mass Index 34.6 Const General: cooperative and no acute distress Nutritional Appearance: well nourished Orientation/consciousness: patient oriented x3 Limitations: no limitations HEENT Head: Yes normocephalic and Yes atraumatic Ears: hearing grossly normal bilaterally Resp Effort & Inspection: normal respiratory effort, no audible wheezes, no cough and no respiratory distress Cardio Jugular venous distension: no JVD GI Inspection: Yes normal to inspection Skin Other: Warm, dry, no rash Neuro General: patient oriented x3 Extrem General: Yes no clubbing, cyanosis or edema Elbow/forearm/wrist images:  1. Two epidermal cysts of the right elbow adjacent to each other each measuring approximately 1 cm. 2. 3. 1.5 cm epidermal cyst left elbow Assessment & Plan Assessment & Plan (1) Epidermal cyst: Code(s): L72.0 - Epidermal cyst Category: Medical Plan 49-year-old female patient with bilateral elbow epidermal cyst which occasionally drain. Recent wound cultures revealed no growth at the 48 hours. Patient mainly complains of pain in the left elbow in his requesting excision of this epidermal cyst. After discussion of the procedure, risks, and alternatives, she consents to the excision of left elbow cyst. This will be scheduled as a short-stay surgery. Patient is on oral anticoagulation and previously underwent cardiac stent therefore we will need cardiac preop evaluation. Coding Level of Care Code New Pt Level 4 (58538) Diagnoses Epidermal cyst L72.0
[2025-05-07 13:39] VITALS: BP 133/67; PULSE 77; BMI 34.6
--- OUTSIDE RECORDS SUMMARY | 2025-05-07 16:09 | XMS_ITS | Encounter Summary ---
Author Organization [employer] Address [address] [place] [address] Care Team Providers Care Underwater Hunter Trapper Name Role Phone Mackenzie Estarda MD Primary Care Provider [phone] Casper Magaña RN Unavailable [phone] Ruth Ann Price Unavailable Unavailable Ruth Ann Price Unavailable Ruth Ann Price Unavailable Reason for Visit * Reason Comments Med Refill Encounter Details Date Type Department Care Team (Late st Contact Info) Description 10/10/2024 Refill [facility] [address] [place] [address] Kat Yo MD [address] [place], [place] [phone] Rheumatoid arthritis involving right hand with positive [...] Visit [facility] [address] [place] [address] 06/07/2025 3:45 PM EST Office Visit [facility] [address] [place] [address] Mackenzie Estrada MD [address] [place] [address] documented as of this encounter Goals Goal Patient Goal Type Associated Problems Recent Progress Patient-Stated? Author Quit using tobacco (cigarettes, smokeless, etc) Tobacco Use No Corey Lin, PharmD documented as of this encounter Visit Diagnoses Diagnosis 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 (CMS/HCC) ([facility]) Inflammatory arthritis Unspecified inflammatory polyarthropathy documented in this encounter Additional Health Concerns Assessment Noted Time PHQ-9 Depression Total Score: 2 04/30/20 24 10:41 AM EDT documented as of this encounter Care Teams Underwater Hunter Trapper Relationship Specialty Start Date End Date Mackenzie Estrada MD [address] [place] [address] PCP - General Family Medicine 07/10/20 Casper Magaña, JENNIFER [address] [place] [address] Registered Nurse Family Medicine 01/18/25 01/18/25 Ruth Ann Price 02/19/25 02/19/25 Ruth Ann Price 02/19/25 02/28/25 Ruth Ann Price 03/29/25 04/03/25 Hemalatha Pretty Special Education DirectorCosmetics Supervisor 01/02/25 documented as of this encounter
--- OUTSIDE RECORDS SUMMARY | 2025-05-07 16:09 | XMS_ITS | Encounter Summary ---
Author Organization [employer] Address [address] [facility] 7t [place] [address] Care Team Providers Care Brim Ironer Hand Name Role Phone Mackenzie Estrada MD Primary Care Provider [phone] Ruth Ann Price Unavailable Unavailable Ruth Ann Price Unavailable Ruth Ann Price Unavailable Reason for Visit * Reason Comments Med Refill Encounter Details Date Type Department Care Team ([facility] [place] [facility] st Contact Info) Description 01/24/2025 Refill [facility] [address] [place] [address] Ebony Daigle MD [address] [place], [place] [phone] Rheumatoid arthritis involving multiple sites with positive rheumatoid factor ([facility]) Social [...] Visit [facility] [address] [place] [address] 06/07/2025 3:45 PM EST Office Visit [facility] [address] [place] [address] Mackenzie Estrada MD [address] [place] [address] documented as of this encounter Goals Goal Patient Goal Type Associated Problems Recent Progress Patient-Stated? Author Quit using tobacco (cigarettes, smokeless, etc) Tobacco Use No Corey Lin, Bailey documented as of this encounter Visit Diagnoses Diagnosis Rheumatoid arthritis involving multiple sites with positive rheumatoid factor (CMS/HCC) ([facility]) documented in this encounter Additional Health Concerns Assessment Noted Time PHQ-9 Depression Total Score: 2 09/30/20 24 10:41 AM EDT documented as of this encounter Care Teams Brim Ironer Hand Relationship Specialty Start Date End Date Mackenzie Estrada MD [address] [place] [phone] PCP - General Family Medicine 07/10/20 Ruth Ann Price 02/19/25 02/19/25 Ruth Ann Price 02/19/25 02/28/25 Ruth Ann Price 03/29/25 04/03/25 Hemalatha Pretty Patternmaker WoodHadoop Software Engineer 01/02/25 documented as of this encounter
--- OUTSIDE RECORDS SUMMARY | 2025-05-07 16:09 | XMS_ITS | Encounter Summary ---
Author Organization [employer] Address [address] [facility] 7t [place] [address] Care Team Providers Care Electrical Designer Name Role Phone Mackenzie Estrada MD Primary Care Provider [phone] Reason for Visit * Reason Comments Med Refill Encounter Details Date Type Department Care Team ([facility] Contact Info) Description 04/09/2025 Refill [facility] [address] [place] [address] Sisi Kennedy FNP [address] [place] [address] Seborrheic dermatitis Social History Tobacco Use Types [...] 05/14/2025 9:45 AM EDT Office Visit [facility] [address] [place] [address] 06/07/2025 3:45 PM EST Office Visit [facility] [address] [place] [phone] Mackenzie Estrada MD [address] [place] [address] documented as of this encounter Goals Goal [...] as of this encounter Care Teams Electrical Designer Relationship Specialty Start Date End Date Mackenzie Estrada MD [address] [place] [phone] PCP - General Family Medicine 07/10/20 Hemalatha Pretty Roller EmbosserFrench Folder 01/02/25 documented as of this encounter
--- OUTSIDE RECORDS SUMMARY | 2025-05-07 16:09 | XMS_ITS | Encounter Summary ---
Author Organization [employer] Address [address] [facility] 7t [place] [address] Care Team Providers Care Voip Engineer Name Role Phone Mackenzie Estrada MD Primary Care Provider [phone] Casper Magaña RN Unavailable [phone] Ruth Ann Price Unavailable Unavailable Ruth Ann Price Unavailable Ruth Ann Price Unavailable Reason for Visit * Reason Comments Med Refill Encounter Details Date Type Department Care Team ([facility] Contact Info) Description 12/10/2022 Refill [facility] 230 [place] [address] Mackenzie Estrada MD [address] [place] [address] Pain in both hands Social History Tobacco [...] Upcoming Encounters Date Type Department Care Team ([facility] Contact Info) Description 05/14/2025 9:45 AM EDT Office Visit [facility] [address] [place] [address] 06/07/2025 3:45 PM EST Office Visit [address] [phone] Mackenzie Estrada MD [address] [place] [address] documented as of this encounter Visit Diagnoses Diagnosis Pain in both hands documented in this encounter Care Teams Voip Engineer Relationship Specialty Start Date End Date Mackenzie Estrada MD [address] [place] [address] [phone] PCP - General Family Medicine 07/10/20 Casper Magaña, RN [address] [place] [address] Registered Nurse Family Medicine 01/18/25 01/18/25 Ruth Ann Price 02/19/25 02/19/25 Ruth Ann Price 02/19/25 02/28/25 Ruth Ann Price 03/29/25 04/03/25 Hemalatha Pretty Playground WorkerOptometric Technician 01/02/25 documented as of this encounter
--- OUTSIDE RECORDS SUMMARY | 2025-05-07 16:09 | XMS_ITS | Encounter Summary ---
Author Organization [employer] Address [address] [facility] 7t [place] [address] Care Team Providers Care Aircraft Detail Draftsperson Name Role Phone Mackenzie Estrada MD Primary Care Provider [phone] Casper Magaña RN Unavailable [phone] Rtuh Ann Price Unavailable Unavailable Ruth Ann Price Unavailable Ruth Ann Price Unavailable Encounter Details Date Type Department Care Team (Late Contact Info) Description 03/04/2023 Orders Only [facility] [address] [place] [phone] Kat Yo MD [address] [place] [address] Social History Tobacco Use Types Packs/Day Years [...] Description 05/14/2025 9:45 AM EDT Office Visit [facility] [address] [place] [address] [phone] 06/07/2025 3:45 PM EST Office Visit [facility] [address] [place] [address] [phone] Mackenzie Estrada MD [address] [place] [address] documented as of this encounter Visit Diagnoses Not on filedocumented in this encounter Care Teams Aircraft Detail Draftsperson Relationship Specialty Start Date End Date Mackenzie Estrada MD [address] [place], [place] [phone] PCP - General Family Medicine 07/10/20 Casper Magaña, RN 505 [place] [address] Registered Nurse Family Medicine 01/18/25 01/18/25 Ruth Ann Price 02/19/25 02/19/25 Ruth Ann Price 02/19/25 02/28/25 Ruth Ann Price 03/29/25 04/03/25 Hemalatha Pretty Baggage AgentRamp Service Man 01/02/25 documented as of this encounter
--- OUTSIDE RECORDS SUMMARY | 2025-05-07 16:09 | XMS_ITS | Encounter Summary ---
Author Organization [employer] Address [address] [facility] [address] 7t [place] [address] Care Team Providers Care Business Quality Assurance Analyst Name Role Phone Mackenzie Estrada MD Primary Care Provider [phone] Ruth Ann Price Unavailable Unavailable Ruth Ann Price Unavailable Ruth Ann Price Unavailable Reason for Visit * Reason Comments Med Refill Encounter Details Date Type Department Care Team ([facility] st Contact Info) Description 01/24/2025 Refill [facility] 230 [place] [address] Kat Yo MD [address] [place] [address] Rheumatoid arthritis involving right hand with positive [...] EDT Office Visit [facility] [address] [place] [address] 06/07/2025 3:45 PM EST Office Visit [facility] [address] [place] [address] Mackenzie Estrada MD [address] [place] [address] documented as of this encounter Goals Goal Patient Goal Type Associated Problems Recent Progress Patient-Stated? 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 (CMS/HCC) ([facility]) Inflammatory arthritis Unspecified inflammatory polyarthropathy documented in this encounter Additional Health Concerns Assessment Noted Time PHQ-9 Depression Total Score: 2 04/30/20 24 10:41 AM EDT documented as of this encounter Care Teams Business Quality Assurance Analyst Relationship Specialty Start Date End Date Mackenzie Estrada MD 230 [place] [address] PCP - General Family Medicine 07/10/20 Ruth Ann Price 02/19/25 02/19/25 Ruth Ann Price 02/19/25 02/28/25 Ruth Ann Price 03/29/25 04/03/25 Hemalatha Pretty Mold CloserGeographic Information Systems Director 01/02/25 documented as of this encounter
--- OUTSIDE RECORDS SUMMARY | 2025-05-07 16:09 | XMS_ITS | Encounter Summary ---
Author Organization [employer] Address [address] [facility] 7t [place] [address] Care Team Providers Care Diagnostic Imaging Manager Name Role Phone Mackenzie Estrada MD Primary Care Provider [phone] Casper Magaña RN Unavailable [phone] Ruth Ann Price Unavailable Unavailable Ruth Ann Price Unavailable Ruth Ann Price Unavailable Reason for Visit * Reason Comments Med Refill Encounter Details Date Type Department Care Team (Late st Contact Info) Description 11/18/2023 Refill [facility] 230 [place] [address] Mackenzie Estrada MD 230 [place], [place] [phone] Pain in both hands Social History Tobacco [...] Description 05/14/2025 9:45 AM EDT Office Visit [facility] [address] [place] [address] 06/07/2025 3:45 PM EST Office Visit [address] [address] Mackenzie Estrada MD [address] [place] [address] documented as of this encounter Goals Goal Patient Goal Type Associated Problems Recent Progress Patient-Stated? Author Quit using tobacco (cigarettes, smokeless, etc) Tobacco Use No Corey Lin, Bailey documented as of this encounter Visit Diagnoses Diagnosis Pain in both hands documented in this encounter Care Teams Diagnostic Imaging Manager Relationship Specialty Start Date End Date Mackenzie Estrada MD [address] [place] [address] PCP - General Family Medicine 07/10/20 Casper Magaña, JENNIFER [address] [place] [address] Registered Nurse Family Medicine 01/18/25 01/18/25 Ruth Ann Price 02/19/25 02/19/25 Ruth Ann Price 02/19/25 02/28/25 Ruth Ann Price 03/29/25 04/03/25 Hemalatha Pretty Elevator Service MechanicPouncing Machine Operator 01/02/25 documented as of this encounter
--- OUTSIDE RECORDS SUMMARY | 2025-05-07 16:09 | XMS_ITS | Clinical Summary ---
Author Organization [facility] Address [address] [place] [address] Care Team Providers Care Shipyard Painter Name Role Phone Sanjay Cruz MD Primary Care Provi [facility] Surgical History Surgery Date Site/Laterality Comments OTHER SURGICAL HISTORY 05/12/2020 Right PROCEDURE: ID BX/EXC LYMPH NODE OPEN SUPERFICIAL; COMMENT: Axillary Lymph Node biopsy- Benign Lymphoid Tissue OTHER SURGICAL HISTORY 12/19/2019 Right PROCEDURE: ID BX/EXC LYMPH NODE NEEDLE SUPERFICIAL; COMMENT: Axillary Lymph node -results were non daignostic Medical History Medical History Date Comments Anxiety DX:Anxiety Migraine DX:Migraine History of DVT (deep vein thrombosis) 05/23/2020 DX:History of DVT (deep vein thrombosis); COMMENT: 01/2005 Right [facility] current use of anticoagulant 0 DX:intermediate card tender current use of anticoagulant Acute deep vein thrombosis ( DVT) of brachial vein of right upper extremity ([facility] V24, [facility] V28) 05/09/2020 DX:Acute deep vein thrombos is (DVT) of brachial vein of right upper extremity (HCC) Axillary lymphadenopathy 05/09/2020 DX:Axil harvinder lymphadenopathy Gastroesophageal reflux disease 05/09/2020 DX:Gastroesophageal reflux disease Personal history of Hodgkin lymphoma 05/09/2020 DX:Personal history of Hodgkin lymphoma Recurrent major depressive d isorder in remission ([facility] V24) 05/09/2020 DX:Recurrent major depressiv e disorder in remission (HCC) Rheumatoid arthritis involvi ng multiple sites ([facility] V24, [facility] V28) 05/09/2020 DX:Rheumatoid arthritis invo lving multiple sites (HCC) Hodgkin's disease, nodular s clerosis, of lymph nodes of multiple sites (CMS/[facility] V24, [facility] V28) DX:Hodgkin's disease, nodul ar sclerosis, [...] Date Last Done Comments Breast Cancer Screening 10/10/2023 10/09/2021 Depression Screening 08/01/2024 COVID-19 Vaccine ( season) 2025 07/23/2021, 12/10/2020, 11/12/2020 Influenza Vaccine (#1) 2025 , 05/13/2021, 07/05/2018, Additional history exists Cervical Cancer Screening: Pap Smear 09/28/2026 09/29/2023 DTaP,Tdap,and Td Vaccines (2 - Td or Tdap) 04/19/2027 04/19/2017 RSV Immunization Adult Patients (1 - 1-dose 75+ series) 2051 Hepatitis A Vaccines Aged Out 08/28/2012 No long er eligible based on patient's age to complete this topic Hepatitis B Vaccines Completed 08/28/2012, 09/08/2006, 05/04/2006 Pneumococcal Vaccine: Pediatrics (0 to 5 Years) and At-Risk Patients (6 to 49 Years) Aged Out 01/24/2025, 03/15/2018, 08/10/2006 No longer eligible based on patient's age to complete this topic HIB Vaccines Aged Out No longer eligi [...] to complete this topic RSV Immunization Patients Under 20 months Aged Out No longer eligible based on patient's age to complete this topic Varicella Vaccines Aged Out No longer eligible based on patient's age to complete this topic Care Teams Shipyard Painter Relationship Specialty Start Date End Date Subramonia-Sanjay Espana MD [address] [place] [phone] PCP - General Internal Medicine 04/09/20
--- OUTSIDE RECORDS SUMMARY | 2025-05-07 16:09 | XMS_ITS | Clinical Summary ---
Author Organization [employer] Address [address] [facility] 7[address] [place] [address] Care Team Providers Care Social Services Specialist Name Role Phone Mackenzie Estrada MD Primary Care Provider [phone] Allergies Active Allergy Reactions Criticality Noted Date Comments Broxton (Diagnostic) 05/23/2020 Broxton Oil Anaphylaxis High 07/19/2022 Morphine 06/02/2015 Other [...] 05/26/20 22 Active Sharps Container (GUARDIAN Sharps Wafer Cutter) misc 06/15/20 22 Active Vitamin D High Potency 25 MCG (1000 UT) capsule Take 25 mcg by mouth in the morning. 12/11/19 23 Active beta carotene (vitamin A) 3 MG (48098 UT) capsule Take by mouth in the [...] MOUTH EVERY WEEK 02/24/20 24 Active Umeclidinium [place] (Incruse Ellipta) 62.5 MCG/ACT aerosol powderIndicati ons:Subacute [...] MG tabletIndicati ons:NSTEMI (non-ST elevated myocardial infarction) (HCC) Take 1 tablet (75 mg) by mouth [...] EVENING 60 tablet 11 03/13/20 25 Active acetaminophen (Tylenol) 500 MG tablet Take [...] MORNING 90 tablet 3 04/15/20 25 Active oxyCODONE-acet aminophen (Percocet) 7.5-325 MG tabletIndicati ons:Osteonecro sis of hip with collapse of femoral head present on x-ray ([facility]) Take 1 tablet by mouth every 6 (six) hours if needed for severe pain for up to 28 days. Do not start before April 18, 2025. 112 tablet 04/18/20 25 10/16/2 025 Active FeroSul 325 (65 Fe) MG tablet TAKE 1 TABLET BY MOUTH EVERY MORNING 90 tablet 3 04/30/20 24 025 Discontinued gabapentin (Neurontin) 400 MG capsule TAKE 1 CAPSULE BY MOUTH THREE TIMES DAILY IN THE MORNING, EVENING, AND BEDTIME (TAKE 1-2 CAPSULE (S) BY MOUTH THREE TIMES DAILY -EXTRA IN VIAL FOR NEEDED) 120 capsule 6 09/07/19 25 025 Discontinued oxyCODONE-acet aminophen (Percocet) 7.5-325 MG tabletIndicati ons:Osteonecro sis of hip with collapse of femoral head present on x-ray (HCC) TAKE 1 TABLET BY MOUTH EVERY 6 HOURS NEEDED FOR SEVERE PAIN FOR UP TO 28 DAYS 112 tablet 03/21/20 25 025 Discontinued(R eorder (will not trigger notification to Pharmacy)) doxycycline (Vibra-Tabs) 100 MG tabletIndicati ons:Nodule of skin of both upper extremities Take 1 tablet (100 mg) by mouth 2 times daily for 7 days. Take with a full glass of water and do not lie down for at least 30 minutes after. 14 tablet 04/03/20 25 025 cephalexin (Keflex) 500 MG capsuleIndicat ions:Nodule of [...] antibiotics. Patient should continue RA treatment with smudger, avoid trauma to elbows. 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 Castro Assessment & Plan [...] to go back to her previous dose, [employer] MAINTENANCE MECHANIC nurse informed about my plan, I instructed [...] pt f w Dr. Corley, rheum at [facility] - Actemra infusions ( Tocilizumab) 8mg/kg every 4 weeks - methotrexate 25mg every week - Folic acid 1 mg every day -percocet 7.5/325 1 tab Q6 h -I called today her Funeral Car Chauffeur # [phone] --got apt and requested transportation to [facility] RN -apt w smudger in 2 days this Tuesday03/08/2025 at 1 h 40 at [address] [facility] [address] -start prednisone 20 mg [...] disease 06/03/2017 Rheumatoid arthritis involving multiple sites (C MS/HCC) 06/03/2017 Overview (03/12/2025): - Following with [facility] Rheumatology: Dr. 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 Also pt [...] and handed this note Rheumatoid arthritis flare ([facility]) 01/18/2023 12/31/2024 Assessment & Plan (11/23/2024 4:25 PM [...] week as per Rheumatology. Rx sent to [facility] and they will continue refill [...] Type Department Care Team Description 04/17/2025 Telephone [facility] [address] [place] [address] Mackenzie Estrada MD Med Refill 04/16/[address] [address] Mackenzie Estrada MD 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 ([facility]) 04/15/2025 Refill [facility] [address] [place] [address] Mackenzie Estrada MD 04/12/2025 Refill [facility] [address] [place] [phone] Mackenzie Estrada MD 04/11/2025 Refill [facility] [address] [place] [address] Mackenzie Estrada MD 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 ([facility]) 04/09/2025 10:40 AM EDT Office Visit [facility] [address] [place] [phone] David Jensen MD Nodule of skin of both upper extremities (Primary Dx) 04/09/2025 Orders Only [facility] [address] [place] [phone] David Jensen MD 04/09/2025 Refill [facility] [address] [place] [address] Sisi Kennedy FNP Seborrheic dermatitis 04/09/2025 Travel 04/09/2025 Telephone [facility] [address] [place] [address] Mackenzie Estrada MD Nurse Triage 04/07/2025 Refill [facility] [address] [place] [address] Mackenzie Estrada MD 04/05/2025 Results Follow-Up [facility] [address] [place], [place] [phone] Sisi Kennedy FNP CBC auto differential 04/04/2025 Results Follow-Up [address] [address] Marychuy Bonilla ANP XR Elbow 3+ Views Left 04/04/2025 Orders Only GENERIC EXTERNAL DATA DEPARTMENT Provider, Generic External Data 04/03/2025 11:15 AM EDT Office Visit [address] [address] Sisi Kennedy FNP Nodule of skin of both upper extremities (Primary Dx) 04/03/2025 Patient Outreach [facility] [address] [place] [address] Mackenzie Estrada MD Care Coordination (Communication to patient assigned CP Coordinator ) 04/03/2025 Travel 04/02/[address] [address] Sisi Kennedy FNP CHART PREP 03/29/2025 Patient Outreach [facility] [address] [place] [address] Mackenzie Estrada MD Care Coordination ([facility] ED Follow Up) 03/29/2025 Patient Outreach [facility] [address] [place] [address] Mackenzie Estrada MD Care Coordination (CP Care Coordination Chart Review) 03/29/2025 Patient Outreach [address] [address] Mackenzie Estrada MD 03/18/[address] [address] Livia Amos MD 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 ([facility]) 03/14/[address] [address] Livia Amos MD 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 ([facility]) 03/13/[address] [address] Mackenzie Estrada MD 03/12/2025 9:45 AM EDT Office Visit [facility] [address] [place] [address] Sisi Kennedy FNP Rheumatoid arthritis involving multiple sites with positive rheumatoid factor ([facility]) (Primary Dx); Long-term current use of opiate analgesic; Seborrheic dermatitis 03/12/2025 Travel 03/06/2025 2:00 PM EDT Office Visit [facility] [address] [place] [address] Livia Hooper MD Inflammatory arthritis (Primary Dx) 03/06/2025 Telephone [facility] [address] [place] [phone] Mackenzie Estrada MD pt1 (PT-1 Request [id number] Pending . For pending submissions, please check the portal periodically for updates. ) 03/06/2025 Telephone [facility] [address] [place] [address] Livia Hooper MD 03/06/2025 Travel 03/05/2025 Telephone [facility] [address] [place] [address] Mackenzie Estrada MD Nurse Triage 02/28/2025 Patient Outreach [facility] [address] [place] [address] Mackenzie Estrada MD Care Coordination (CP/ Communication to pt assigned CP Coordinator) 02/21/2025 Refill [facility] [address] [place] [address] Kaylene Samano RN 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 ([facility]) 02/21/2025 Telephone [facility] [address] [place] [address] Mackenzie Estrada MD Med Refill 02/19/2025 Patient Outreach [facility] [address] [place] [address] Mackenzie Estrada MD Care Coordination ([facility] ED /F/U) 02/19/2025 Patient Outreach [facility] [address] [place] [address] Mackenzie Estrada MD Care Coordination ([facility] Research Clerk / Chart Review) 02/19/2025 Patient Outreach [facility] [address] [place] [address] Mackenzie Estrada MD 02/19/2025 Patient Outreach [facility] [address] [place] [address] Mackenzie Estrada MD 02/18/2025 Refill [facility] [address] [place] [address] Mackenzie Estrada MD 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 ([facility]) 02/18/2025 Orders Only GENERIC EXTERNAL DATA DEPARTMENT Provider, Generic External Data 02/14/2025 Refill [facility] [address] [place] [address] Mackenzie Estrada MD 02/05/2025 Telephone [facility] [address] [place], [place] [phone] Mackenzie Estrada MD ER Follow-up 02/04/2025 Orders [...] AM EDT Office Visit [facility] [address] [place] [phone] 06/07/2025 3:45 PM EST Office Visit [address] [address] Mackenzie Estrada MD [address] [place] [address] Health Maintenance Due Date Last Done Comments CT Colonography 1975 Dental Prophylaxis 1975 FIT DNA/Cologuard 1975 FIT 1975 FOBT 1975 Sigmoidoscopy 1975 Zoster Vaccines (1 of 2) 1995 Dental Oral Exam 07/30/2021 01/27/2021 Mammogram 10/10/2023 10/09/2021, 11/24/2018 Dental X-Ray: Full Mouth 01/29/2024 01/27/2021 Dental X-Ray: Bitewings 01/20/2025 01/20/20 24, 01/27/2021, 04/19/2016 COVID-19 Vaccine ( season) 2025 07/23/2021, 12/10/2020, 11/12/2020 Influenza Vaccine (#1) 2025 3, 05/13/2021, 07/05/2018, Additional history exists SDOH Screening [...] involving multiple sites with positive rheumatoid factor ([facility]) Long-term current use of opiate analgesic URINALYSIS, [...] AUTO DIFFERENTIAL Routine 02/04/2025 8:38 AM EDT HEPATITIS C ANTIBODY Routine 04/11/2024 [...] 0 PM EDT 04/10/2025 12:26 PM EDT Comment:Jazmin Lt Narrative [facility] - 04/12/2025 8:06 AM EDT Gram stain results: No polys 1+ epithelial cells No organisms seen Routine Culture No growth after 2 days Specimen Source: Elbow Left us David Jensen MD HISTORICAL/NON ORDERABLE LABS Fi nal Result [facility] [address] [place] [address] [phone] * (ABNORMAL) CBC auto differential (04/04/2025 10:30 AM EDT) Only the most recent of5 resultswithin the time period is included. White Blood Count 5.1 4.8 - 10.8 X10*3/uL [facility] Red Blood Count 4.32 4.20 - 5.50 X10*6/uL [facility] Hemoglobin 13.0 12.0 - 16.0 g/dl [facility] Hematocrit 40.1 37.0 - 47.0 % [facility] Mean Corpuscular Volume 92.8 80.0 - 98.0 fL [facility] Mean Corpuscular Hemoglobin 30.1 27.0 - 33.0 pg [facility] Mean Corpuscular HGB Conc 32.4 31.0 - 35.0 g/dl [facility] Red Cell Distribution Width 13.9 11.0 - 16.0 % [facility] Platelet Count 253 160 - 400 X10*3/uL [facility] Mean Platelet Volume 10.5 9.4 - 12.3 fL [facility] Neutrophils Percent Auto 43.5(L) 45 - 73 % [facility] Imm Gran Pct Auto 0.2 0.0 - 0.4 % [facility] Lymphocytes Percent Auto 47.2(H) 20 - 40 % [facility] Monocytes Percent Auto 6.7 2 - 11 % [facility] Eosinophils Percent Auto 2.2 0 - 4 % [facility] Basophils Percent Auto 0.2 0 - 2 % [facility] NRBC Pct Auto 0.0 0.0 - 0.2 /100WBC [facility] Neutrophils Absolute Auto 2.2 2.0 - 8.3 x10*3/uL [facility] Imm Gran Abs Auto 0.01 0.00 - 0.03 X10*3/uL [facility] Lymphocytes Absolute Auto 2.4 1.2 - 4.9 X10*3/uL [facility] Monocytes Absolute Auto 0.3 0.1 - 1.2 X10*3/uL [facility] Eosinophils Absolute Auto 0.1 0.0 - 0.4 X10*3/uL [facility] Basophils Absolute Auto 0.0 0.0 - 0.2 X10*3/uL [facility] NRBC Abs Auto 0.000 0.0 - 0.012 X10*3/uL [facility] 04/04/2025 10:3 0 AM EDT 04/04/2025 11:15 AM EDT Generic External Data Provider LAB BLOOD ORDERAB LES Final Result Performing Organization Address [facility]/ZIP Co de Phone Number [facility] [address] [place] [address] [phone] * Urinalysis w/reflex microscopic (04/04/2025 10:30 AM EDT) Color Urine Yellow [facility] Appearance Urine Clear [facility] PH 5.0 5.0 - 9.0 [facility] Glucose Urine UA Negative Negative mg/dL [facility] Urine Blood Negative Negative [facility] Specific [place] - Urine 1.020 1.005 - 1.025 [facility] Urine Protein Negative Neg-Trace mg/dL [facility] Urine Ketones Negative Negative mg/dL [facility] Nitrite Urine Negative Negative [facility] Leukocyte Esterase Urine Negative Negative [facility] 04/04/2025 10:3 0 AM EDT 04/04/2025 11:09 AM EDT Narrative [facility] - 04/04/2025 11:25 AM EDT Urine, Clean Catch us Generic External Data Provider LAB URINE ORDERAB LES Final Result Performing Organization Address City/[facility]/ZIP Co de Phone Number [facility] [address] [place] [address] [phone] * (ABNORMAL) Uric acid (04/04/2025 10:30 AM EDT) Uric Acid 6.3(H) 2.4 - 5.7 mg/dL [facility] 04/04/2025 10:3 0 AM EDT 04/04/2025 11:15 AM EDT us Generic External Data Provider LAB BLOOD ORDERAB LES Final Result Performing Organization Address [facility] Co de Phone Number [facility] [address] [place] [phone] * Lactate Dehydrogenase (LD) (04/04/2025 10:30 AM EDT) Lactate Dehydrogenase 130 122 - 220 U/L [facility] 04/04/2025 10:3 0 AM EDT 04/04/2025 11:15 AM EDT Generic External Data Provider LAB BLOOD ORDERAB LES Final Result Performing Organization Address [facility] de Phone Number [facility] [address] [place] [phone] * Hepatic Function Panel (04/04/2025 10:30 AM EDT) Only the most recent of2 resultswithin the time period is included. Bilirubin, Direct 0.1 0.0 - 0.5 mg/dL [facility] 04/04/2025 10:3 0 AM EDT 04/04/2025 11:15 AM EDT Generic External Data Provider LAB BLOOD ORDERAB LES Final Result Performing Organization Address [facility] de Phone Number [facility] [address] [place] [phone] * (ABNORMAL) Comprehensive Metabolic Panel (04/04/2025 10:30 AM EDT) Only the most recent of2 resultswithin the time period is included. Sodium 140 135 - 145 mmol/L [facility] Potassium 3.9 3.3 - 5.1 mmol/L [facility] Chloride 105 96 - 108 mmol/L [facility] Carbon Dioxide 25 22 - 29 mmol/L [facility] Anion Gap 14 12 - 20 [facility] Urea Nitrogen (BUN) 11 9 - 16 mg/dL [facility] Creatinine, Serum 0.63 0.5 - 1.4 mg/dL [facility] Estimated Glomerular Filt Rate >60 [facility] Comment:Chronic Kidney Disea se: Estimated GFR < 60 mL/min/1.15r1Smegsu Kidney Disease: Estimated GFR < 15 mL/min/1.73m2 Glucose 87 60 - 115 mg/dL [facility] Calcium 9.7 8.4 - 10.2 mg/dL [facility] Bilirubin, Total 0.5 0.0 - 1.0 mg/dL [facility] Aspartate Amino Transferase 22 5 - 31 U/L [facility] Alanine Aminotransferase 22 0 - 31 U/L [facility] Total Protein 8.6(H) 6.5 - 8.0 g/dL [facility] Albumin Level 4.3 3.5 - 5.0 g/dL [facility] Alkaline Phosphatase 82 39 - 117 U/L [facility] 04/04/2025 10:3 0 AM EDT 04/04/2025 11:15 AM EDT us Generic External Data Provider LAB BLOOD ORDERAB LES Final Result Performing Organization Address City/State/[facility] Co de Phone Number [facility] [address] [place], [place] [phone] * XR Elbow 3+ Views Left (04/04/2025 10:14 AM EDT) Anatomical Region Laterality Modality Upper Extremities, Elbow Left Radiogr aphic Imaging 04/04/2025 10:1 4 AM EDT Narrative 04/04/2025 11:12 AM EDT [facility] [address] [place] [address] XRay Report Signed Patient: Ginette Arceo MR #: [id number] : 1975 Acct:[id number] Age/Sex: 49 / F ADM Date: 04/04/25 Loc: [facility] Attending Dr: Marychuy Bonilla NP Ordering Physician: MARYCHUY BONILLA NP Date of Service: 04/04/25 Procedure(s): XR elbow LT min 3V Accession Number(s): [id number] cc: Mackenzie Estrada; MARYCHUY BONILLA NP Reason [...] 04/04/25 1109 DD/ 1014 TD/TT: 04/04/25 1102 Permaculture Contractor: Procedure Note Donotuseinterpreter, Image - 04/04/2025 [place] [address] XRay Report Signed Patient: Ginette ArceoMR #: [id number] : 1975Acct:[id number] Age/Sex: 49 / FADM Date: 04/04/25 Loc: [facility] Attending Dr: Marychuy Bonilla NP Ordering Physician: MARYCHUY BONILLA NP Date of Service: 04/04/25 Procedure(s): XR elbow LT min 3V Accession Number(s): [id number] cc: Mackenzie Estrada; MARYCHUY BONILLA NP Reason [...] 04/04/25 1109 DD/ 1014 TD/TT: 04/04/25 1102 Permaculture Contractor: Marychuy MELGOZA IMG XR PROCEDURES Final Result * (ABNORMAL) [...] - 03/12/2025 10:28 AM EDT .UTOX cup Lot#[id number] Exp. 05/07/26 Internal Pass Control Sisi Kennedy HR PAYROLL COORDINATOR POINT OF CARE TEST ENTER/EDIT ORDERABLES Final Result * (ABNORMAL) Urinalysis, Complete, with Reflex to Culture (02/18/2025 10:44 AM EDT) Color Urine Yellow [facility] Appearance Urine Clear [facility] PH 6.0 5.0 - 9.0 [facility] Glucose Urine UA Negative Negative mg/dL [facility] Urine Blood Negative Negative [facility] Specific [place] - Urine 1.020 1.005 - 1.025 [facility] Urine Protein Negative Neg-Trace mg/dL [facility] Urine Ketones Negative Negative mg/dL [facility] Nitrite Urine Negative Negative [facility] Leukocyte Esterase Urine Small (1+)(A) Negative [facility] RBC Urine 0-2 0 - 2 /HPF [facility] Urine WBC 6-10(A) 0 - 5 /HPF [facility] Urine Squamous Epithelial Cell 11-20 0 - 2 /HPF [facility] Urine Bacteria Trace None Seen [facility] Hyaline Casts, Urine 0-2 0 - 2 /LPF [facility] 02/18/2025 10:4 4 AM EDT 02/18/2025 10:49 AM EDT Narrative [facility] - 02/18/2025 10:57 AM EDT [id number], Clean Catch us Generic External Data Provider LAB URINE ORDERAB LES Final Result Performing Organization Address City/State/[facility] Co de Phone Number [facility] [address] [place] [phone] * VASC US Lower Extremity Venous Duplex Bilateral (02/18/2025 9:50 AM EDT) 02/18/2025 9:50 AM EDT [facility] - 02/18/2025 10:27 AM EDT [address] [address] Ultrasound Report Signed Patient: Ginette Arceo MR #: [id number] : 1975 Acct:[id number] Age/Sex: 49 / F ADM Date: 02/18/25 Loc: .ED Attending Dr: Ordering Physician: Jana Mcdaniel Date of Service: 02/18/25 Procedure(s): US venous duplex LE BI Accession Number(s): [id number] cc: Mackenzie Estrada; Jana Mcdaniel EXAMINATION: US [...] 02/18/25 1024 DD/ 0950 TD/TT: 02/18/25 1010 Permaculture Contractor: Procedure Note Donotuseinterpreter, Image - 02/18/2025 [place] [address] Ultrasound Report Signed Patient: Ginette ArceoMR #: [id number] : 1975Acct:[id number] Age/Sex: 49 / FADM Date: 02/18/25 Loc: .ED Attending Dr: Ordering Physician: Jana Mcdaniel Date of Service: 02/18/25 Procedure(s): US venous duplex LE BI Accession Number(s): [id number] cc: Mackenzie Estrada; Jana Mcdaniel EXAMINATION: US [...] 02/18/25 1024 DD/ 0950 TD/TT: 02/18/25 1010 Permaculture Contractor: [facility] External Provider CV VASC ULAR PROCEDURES Final Result [facility] [address] [place] [phone] * High Sensitivity Troponin I (02/18/2025 8:49 AM EDT) TROPONIN I HIGH SENSITIVITY <2.7 <3.5 - 17.0 ng/L [facility] Comment:The Shea high sens itivity Troponin-I results should beused in conjunction with other diagnostic information suchas ECG, clinical observations and information, and patientsymptoms to aid in the diagnosis of DC. 02/18/2025 8:49 AM EDT 02/18/2025 8:54 AM EDT Generic External Data Provider LAB BLOOD ORDERAB LES Final Result Performing Organization Address [facility] Co de Phone Number [facility] [address] [place] [phone] * SARS-CoV-2 RNA, Influenza A/B, and RSV RNA, Ql NAAT (02/18/2025 8:49 AM EDT) Influenza A PCR NEGATIVE Negative [facility] Influenza B PCR NEGATIVE Negative [facility] Resp Syncy Virus RNA Qual PCR NEGATIVE Negative [facility] SARS COV2 PCR NEGATIVE Negative [facility] Comment:All test results mus t [...] use by authorized laboratories.Testing performed on the [employer] GeneXpert utilizingreal-time RT-PCR.All SARS CoV2 and positive influenza A/B results arereported to [facility]. 02/18/2025 8:49 AM EDT 02/18/2025 8:54 AM EDT Generic External Data Provider LAB MICROBIOLOGY - GENERAL ORDERABLES Final Result Performing Organization Address City/[facility]/ZIP Co de Phone Number [facility] [address] [place] [phone] * (ABNORMAL) Sed Rate by Modified Roman (02/18/2025 8:49 AM EDT) Only the most recent of2 resultswithin the time period is included. Erythrocyte Sedimentation Rate 81(H) 0 - 20 MM/HR [facility] Comment:Patients with polycy themia and many hemoglobin abnormalitiesmay have depressed sed rates whereas patients with anemiamay have elevated sed rates. 02/18/2025 8:49 AM EDT 02/18/2025 8:54 AM EDT us Generic External Data Provider LAB BLOOD ORDERAB LES Final Result Performing Organization Address [facility] de Phone Number [facility] [address] [place] [phone] * C-reactive Protein (02/18/2025 8:49 AM EDT) C Reactive Protein 0.44 < or = 0.50 mg/dL [facility] 02/18/2025 8:49 AM EDT 02/18/2025 8:54 AM EDT Generic External Data Provider LAB BLOOD ORDERAB LES Final Result Performing Organization Address [facility] Phone Number [facility] [address] [place] [address] [phone] * B Type Natriuretic Peptide (BNP) (02/18/2025 8:49 AM EDT) B Type Natriuretic Peptide 48 <100 pg/mL [facility] 02/18/2025 8:49 AM EDT 02/18/2025 8:54 AM EDT Generic External Data Provider LAB BLOOD ORDERAB LES Final Result Performing Organization Address [facility] de Phone Number [facility] [address] [place] [phone] * Magnesium (02/18/2025 8:49 AM EDT) Magnesium 2.2 1.6 - 2.6 mg/dL [facility] 02/18/2025 8:49 AM EDT 02/18/2025 8:54 AM EDT Generic External Data Provider LAB BLOOD ORDERAB LES Final Result Performing Organization Address [facility] Co de Phone Number [facility] [address] [place] [address] [phone] * Basic Metabolic Panel (02/18/2025 8:49 AM EDT) Sodium 140 135 - 145 mmol/L [facility] Potassium 4.6 3.3 - 5.1 mmol/L [facility] Comment:Slight Hemolysis.Int erpret result with caution. Chloride 106 96 - 108 mmol/L [facility] Carbon Dioxide 25 22 - 29 mmol/L [facility] Anion Gap 14 12 - 20 [facility] Urea Nitrogen (BUN) 12 9 - 16 mg/dL [facility] Creatinine, Serum 0.62 0.5 - 1.4 mg/dL [facility] Creatinine Clr Calc Pharmacy 120.9 [facility] Comment:Provided height and weight: 167.64 cm,83.6 kg.eGFR (calculated from the MDRD study equation) and eCrCl(calculated from the Cockcroft-Gault equation) are based ondifferent parameters and may not yield comparable results.If eCrCl result is absurd, please check patient'sheight/weight. Estimated Glomerular Filt Rate >60 [facility] Comment:Chronic Kidney Disea se: Estimated GFR < 60 mL/min/1.70p5Fnzhkq Kidney Disease: Estimated GFR < 15 mL/min/1.73m2 Glucose 101 60 - 115 mg/dL [facility] Calcium 9.6 8.4 - 10.2 mg/dL [facility] 02/18/2025 8:49 AM EDT 02/18/2025 8:54 AM EDT Generic External Data Provider LAB BLOOD ORDERAB LES Final Result Performing Organization Address [facility] Co de Phone Number [facility] [address] [place] [address] [phone] * XR Knee 3 Views Left (02/18/2025 8:14 AM EDT) Anatomical Region Laterality Modality Lower Extremities, Knee Left Radiogra phic Imaging 02/18/2025 8:14 AM EDT Narrative 02/18/2025 9:26 AM EDT [address] [address] XRay Report Signed Patient: Ginette Arceo MR #: [id number] : 1975 Acct:[id number] Age/Sex: 49 / F ADM Date: 02/18/25 Loc: HO.ED Attending Dr: Ordering Physician: Jana Mcdaniel Date of Service: 02/18/25 Procedure(s): XR knee LT 3V Accession Number(s): [id number] cc: Mackenzie Estrada; Jana Mcdaniel EXAMINATION: XR [...] Jamie Avelar MD in OV> 02/18/25922 DD/ 0814 TD/TT: 02/18/25 0913 Permaculture Contractor: [facility] Procedure Note Donotuseinterpreter, Image - 02/18/[address] [address] XRay Report Signed Patient: Ginette ArceoMR #: [id number] : 1975Acct:[id number] Age/Sex: 49 / FADM Date: 02/18/25 Loc: .ED Attending Dr: Ordering Physician: Jana Mcdaniel Date of Service: 02/18/25 Procedure(s): XR knee LT 3V Accession Number(s): [id number] cc: Mackenzie Estrada; Jana Mcdaniel EXAMINATION: XR [...] Avelar MD in OV> 02/18/25 09 DD/ 3 TD/TT: 02/18/25912 Permaculture Contractor: MAGGIE [facility] External Provider IMG XR PROCEDURES Final Result * XR Knee 3 Views Right (02/18/2025 8:11 AM EDT) Anatomical Region Laterality Modality Lower Extremities, Knee Right Radiogra phic Imaging 02/18/2025 8:11 AM EDT Narrative 02/18/2025 9:25 AM EDT [place] [address] XRay Report Signed Patient: Ginette Arceo MR #: [id number] : 1975 Acct:[id number] Age/Sex: 49 / F ADM Date: 02/18/25 Loc: .ED Attending Dr: Ordering Physician: Jana Mcdaniel Date of Service: 02/18/25 Procedure(s): XR knee RT 3V Accession Number(s): [id number] cc: Mackenzie Estrada; Jana Mcdaniel EXAMINATION: XR KNEE, RIGHT CLINICAL INFORMATION: pain COMPARISON: None available. TECHNIQUE: Four views of the right knee. FINDINGS: No fracture or joint effusion. Alignment is anatomic. Joint spaces are maintained. No abnormal soft tissue calcification. XR/XR knee RT 3V IMPRESSION: Normal right knee. Electronically signed by: Jmaie Avelar MD 02/18/2025 09:22 AM EDT RP Dictated By: Jamie Avelar MD Signed By: <Electronically signed by Jamie Avelar MD in OV> 02/18/25921 DD/ 08 TD/TT: 02/18/25912 Permaculture Contractor: MAGGIE Procedure Note Donotwilmarinterpreter, Image - 02/18/[address] [address] XRay Report Signed Patient: Ginette ArceoMR #: [id number] : 1975Acct:[id number] Age/Sex: 49 / FADM Date: 02/18/25 Loc: HO.ED Attending Dr: Ordering Physician: Jana Mcdaniel Date of Service: 02/18/25 Procedure(s): XR knee RT 3V Accession Number(s): [id number] cc: Mackenzie Estrada; Jana Mcdaniel EXAMINATION: XR [...] MD in OV> 02/18/25921 DD/ 0811 TD/TT: 02/18/25912 Permaculture Contractor: MAGGIE us [facility] External Provider IMG XR PROCEDURES Final Result * XR Hand 3+ Views Right (02/18/2025 8:08 AM EDT) Anatomical Region Laterality Modality Upper Extremities, Hand Right Radiogra phic Imaging 02/18/2025 8:08 AM EDT Narrative 02/18/2025 9:30 AM EDT [address] [address] XRay Report Signed Patient: Ginette Arceo MR #: [id number] : 1975 Acct:[id number] Age/Sex: 49 / F ADM Date: 02/18/25 Loc: HO.ED Attending Dr: Ordering Physician: Jana Mcdaniel Date of Service: 02/18/25 Procedure(s): XR hand RT min 3V Accession Number(s): [id number] cc: Mackenzie Estrada; Jana Mcdaniel EXAMINATION: XR [...] OV> 02/18/25926 DD/ 0808 TD/TT: 02/18/25 0913 Permaculture Contractor: [facility] Procedure Note Donotuseinterpreter, Image - 02/18/[address] [address] XRay Report Signed Patient: Ginette ArceoMR #: [id number] : 1975Acct:[id number] Age/Sex: 49 / FADM Date: 02/18/25 Loc: .ED Attending Dr: Ordering Physician: Jana Mcdaniel Date of Service: 02/18/25 Procedure(s): XR hand RT min 3V Accession Number(s): [id number] cc: Mackenzie Estrada; aJna Mcdaniel EXAMINATION: XR HAND, RIGHT CLINICAL INFORMATION: [...] MD in OV> 02/18/25926 DD/ 08 TD/TT: 02/18/25 09 Permaculture Contractor: [facility] External Provider IMG XR PROCEDURES Final Result * Culture, Urine, Routine (02/18/2025 12:00 AM EDT) Urine Urine specimen obtained by clean catch procedure / Unknown 02/18/2025 02/18/2025 Comment:[facility] Narrative [facility] - 02/19/2025 9:03 AM EDT Strep agalactiae (Grp B) Quant 50,000 to 100,000 cfu/mL Susc N/A Susceptibility not routinely performed on this isolate. Specimen Source: Urine clean catch Generic External Data Provider LAB MICROBIOLOGY - GENERAL ORDERABLES Final Result [facility] [address] [place] [phone] * XR Foot 3+ Views Left (02/04/2025 9:33 AM EDT) Anatomical Region Laterality Modality Lower Extremities, Foot Left Radiogra phic Imaging 02/04/2025 9:33 AM EDT Narrative 02/04/2025 9:35 AM EDT [address] [address] XRay Report Signed Patient: Ginette Arceo MR #: [id number] : 1975 Acct:[id number] Age/Sex: 49 / F ADM Date: 02/04/25 Loc: HO.ED Attending Dr: Ordering Physician: Raymon Fregoso MD Date of Service: 02/04/25 Procedure(s): XR foot LT min 3V Accession Number(s): [id number] cc: Raymon Fregoso MD; Mackenzie Estrada CLINICAL HISTORY: lt foot pain Exam: Left foot three views Comparison: CR/WY/SR - XR FOOT LT MIN 3V - [...] signed by Edelmira Gaitan MD in OV> 02/04/25 0935 DD/ 2 TD/TT: 02/04/25932 Permaculture Contractor: Procedure Note Donotuseinterpreter, Image - 02/04/[address] [address] XRay Report Signed Patient: Ginette ArceoMR #: [id number] : 1975Acct:[id number] Age/Sex: 49 / FADM Date: 02/04/25 Loc: HO.ED Attending Dr: Ordering Physician: Raymon Fregoso MD Date of Service: 02/04/25 Procedure(s): XR foot LT min 3V Accession Number(s): [id number] cc: Raymon Fregoso MD; Mackenzie Estrada CLINICAL HISTORY: lt foot pain Exam: Left foot three views Comparison: CR/WY/SR - XR FOOT LT MIN 3V - [...] in OV> 02/04/2535 DD/ 2 TD/TT: 02/04/25932 Permaculture Contractor: [facility] External Provider IMG XR PROCEDURES Final Result * XR Ankle 3+ Views Left (02/04/2025 9:26 AM EDT) Anatomical Region Laterality Modality Lower Extremities, Ankle Left Radiogr aphic Imaging 02/04/2025 9:26 AM EDT Narrative 02/04/2025 9:28 AM EDT [place] [address] XRay Report Signed Patient: Ginette Arceo MR #: [id number] : 1975 Acct:[id number] Age/Sex: 49 / F ADM Date: 02/04/25 Loc: HO.ED Attending Dr: Ordering Physician: Raymon Fregoso MD Date of Service: 02/04/25 Procedure(s): XR ankle LT min 3V Accession Number(s): [id number] cc: Raymon Fregoso MD; Mackenzie Estrada CLINICAL HISTORY: lt ankle pain 3 view left ankle Comparison: CR/WY/SR - XR ANKLE LT MIN 3V - [...] in OV> 02/04/25926 DD/ 5 TD/TT: 02/04/25925 Permaculture Contractor: Procedure Note Donotuseinterpreter, Image - 02/04/[address] [address] XRay Report Signed Patient: Ginette Arceo #: [id number] : 1975Acct:[id number] Age/Sex: 49 / FADM Date: 02/04/25 Loc: .ED Attending Dr: Ordering Physician: Raymon Fregoso MD Date of Service: 02/04/25 Procedure(s): XR ankle LT min 3V Accession Number(s): [id number] cc: Raymon Fregoso MD; Mackenzie Estrada CLINICAL HISTORY: lt ankle pain 3 view left ankle Comparison: CR/WY/SR - XR ANKLE LT MIN 3V - [...] in OV> 02/04/25926 DD/ 5 TD/TT: 02/04/25925 Permaculture Contractor: [facility] External Provider IMG XR PROCEDURES Final Result * Hepatitis C Ab (04/11/2024 10:26 AM EDT) Pathologist [facility] Hepatitis C Antibody Nonreactive Nonreactive [facility] Comment:Antibodies to HCV no t detected; does not exclude early acuteHCV infection. Blood Venous blood specimen / Unknown 04/11/2024 10:26 AM EDT 04/11/2024 11:19 AM EDT Result [facility] Mackenzie Estrada MD LAB BLOOD ORDERABLES Final Res ult [facility] [address] [place] [phone] * HIV-1/2 Antigen and Antibodies, Fourth Generation, with Reflexes (04/11/2024 10:26 AM EDT) Pathologist [facility] HIV AB/AG Nonreactive Nonreactive [facility] Comment:HIV-1 p24 Ag and/or HIV-1/HIV-2 Ab not detected.A test result that is nonreactive does not exclude thepossibility of exposure to or infection with HIV-1 and/orHIV-2. Nonreactive results in this assay for individualswith prior exposure to HIV-1 and/or HIV-2 may be due toantigen and antibody levels that are below the limit ofdetection of this assay.The [employer] HIV Ag/Ab Combo assay result andsupplemental assay results should be interpreted inconjunction with the patient's clinical presentation,history and other laboratory results. If the results areinconsistent with clinical evidence, additional testing issuggested to confirm the result. Blood Venous blood specimen / Unknown 04/11/2024 10:26 AM EDT 04/11/2024 11:19 AM EDT us Mackenzie Estrada MD LAB BLOOD ORDERABLES Final Res ult Performing Organization Address [facility] Co de Phone Number [facility] [address] [place] [phone] * HPV mRNA E6/E7 w/Reflex to HPV Genotypes 16, 18/45 (09/29/2023 12:26 PM EST) HPV nRNA E6/E7 Not Detected Not Detected [facility] Comment:Methodology: Transcr iption-Mediated AmplificationThis assay detects E6/E7 viral messenger RNA (mRNA) from 14high-risk HPV types (16,18,31,33,35,39,45,51,52,56,58,59,66,68).Cervical sources are required for HPV testing.If a vaginal source from a patient who has had atotal hysterectomy with removal of cervix wassubmitted, please contact the testing laboratoryfor alternative testing options.For additional information, please refer tohttp://education.MoboTap/faq/FQC386d8(This link if provided for information/educational purposes only.)THIS TEST WAS PERFORMED AT:[facility] [place] [phone] GALVAN MD HPV mRNA E6/E7 TNP [facility] HPV 16 RNA [facility] HPV 18/45 RNA [facility] 09/29/2023 12:2 6 PM EST 09/30/2023 11:30 AM EST us Mackenzie Estrada MD LAB CYTOLOGY ORDERABLES Final Result Performing Organization Address [facility]/ZIP Co de Phone Number [facility] [address] [place] [phone] * Pap Smear (09/29/2023 12:26 PM EST) 09/29/2023 12:2 6 PM EST 09/30/2023 11:30 AM EST Narrative [facility] - 10/12/2023 4:18 PM EDT ----- ------- Name: Ginette Arceo Age/Sex: 48/F : 1975 Unit#: [id number] Attend Dr: Mackenzie Estrada Re09/29/23 Status: [facility]ch: ----- ------- SPEC : [id number] RECD: 09/30/23-1130 STATUS: NIRMALA ANA NUM: [id number] BHAVIN: 09/29/23-[address]: Mackenzie Estrada ENTERED: 09/30/23-1325 SP TYPE: Pap Smr [facility] DR: ORDERED: Pap Smear Interpretation Satisfactory for evaluation. Negative for intraepithelial lesion or malignancy. HPV mRNA E6/E7: NOT DETECTED This assay detects E6/E7 viral messenger RNA (mRNA) from 14 high-risk HPV types (16, 18, 31, 33, 35, 39, 45, 51, 52, 56, 58, 59, 66, 68) HPV testing performed by [facility], [place], [place]. See reference laboratory portion of the EMR for entire report. Clinical Information LMP: Heavy menstrual bleeding past two weeks Previous PAP test: Unknown date/findings Other history: Material Received ThinPrep-Cervical ----- ------- Signed (signature on file) BARB Hawley ([place] [facility]) 10/12/23 1618 ----- ------- END OF REPORT Mackenzie Estrada MD LAB CYTOLOGY ORDERABLES Final Result [facility] [address] [place] [phone] * Mammography Report 1 (10/09/2021 12:05 [...] factors. LDL-C is now calculated using the Quintin calculation, which is a validated novel method providing better accuracy than the Friedewald equation in the estimation of LDL-C. Hi COELLO et al. ROXY. 2013;310(19): 5073-2508 (http://education.One to the World/faq/LBS240) Non-HDL Cholesterol 175(H) <130 mg/dL (calc) [facility] Comment: For patients with diabetes plus 1 major ASCVD risk factor, treating to a non-HDL-C goal of <100 mg/dL (LDL-C of <70 mg/dL) is considered a therapeutic option. Triglycerides 237(H) <150 mg/dL [facility] Comment: If a non-fasting specimen was collected, consider repeat triglyceride testing on a fasting specimen if clinically indicated. Cory et al. J. of Clin. Lipidol. 2015;9:129-169. 09/14/2021 2:52 PM EST Mackenzie Estrada MD LAB BLOOD ORDERABLES Final Res ult [facility] [address] * Colonoscopy (10/28/2017) Colonoscopy Normal Normal Narrative Cecilia Henriquez - 10/28/2017 Recommended 10 year follow up ([facility] [place] [place] Historical Provider HEALTH MAINTENANCE Edited Result - Final from Last 3 Months or Most Recently Relevant to Health Maintenance Insurance [facility] STAND ADULT [address] [place] [address] Care Teams Social Services Specialist Relationship Specialty Start Date End Date Mackenzie Estrada MD [address] [place] [address] PCP - General Family Medicine 07/10/20 Hemalatha Pretty Sack LifterChief Informatics Officer 01/02/25
--- OUTSIDE RECORDS SUMMARY | 2025-05-07 16:09 | XMS_ITS | Encounter Summary ---
Author Organization [employer] Address [address] [facility] 7t [place] [address] Care Team Providers Care Compensation And Hris Analyst Name Role Phone Mackenzie Estrada MD Primary Care Provider [phone] Casper Magaña RN Unavailable [phone] Ruth Ann Price Unavailable Unavailable Ruth Ann Price Unavailable Ruth Ann Price Unavailable Reason for Visit * Reason Comments Med Refill Encounter Details Date Type Department Care Team (Late st Contact Info) Description 10/10/2024 Refill [facility] [address] [place] [address] Mackenzie Estrada MD [address] [place] [address] 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 (HCC) documented in this encounter Additional Health Concerns Assessment Noted Time PHQ-9 Depression Total Score: 2 04/30/20 24 10:41 AM EDT documented as of this encounter Care Teams Compensation And Hris Analyst Relationship Specialty Start Date End Date Mackenize Estrada MD [address] [place] [address] PCP - General Family Medicine 07/10/20 Casper Magaña, JENNIFER [address] [place] [address] Registered Nurse Family Medicine 01/18/25 01/18/25 Ruth Ann Price 02/19/25 02/19/25 Ruth Ann Price 02/19/25 02/28/25 Ruth Ann Price 03/29/25 04/03/25 Hemalatha Pretty Low Heel BuilderNapper Runner 01/02/25 documented as of this encounter
--- OUTSIDE RECORDS SUMMARY | 2025-05-07 16:09 | XMS_ITS | Encounter Summary ---
Author Organization [employer] Address [address] [facility] 7t [place] [address] Care Team Providers Care Sheather Name Role Phone Mackenzie Estrada MD Primary Care Provider [phone] Casper Magaña RN Unavailable [phone] Ruth Ann Price Unavailable Unavailable Ruth Ann Price Unavailable Ruth Ann Price Unavailable Reason for Visit * Reason Comments Med Refill Encounter Details Date Type Department Care Team (Late st Contact Info) Description 08/19/2024 Refill [facility] [address] [place] [address] Mackenzie Estrada MD [address] [place] [address] Social History Tobacco Use Types Packs/Day Years [...] Office Visit [facility] [address] [place] [phone] 06/07/2025 3:45 PM EST Office Visit [address] [address] Mackenzie Estrada MD [address] [place] [address] documented as of this encounter Goals Goal Patient Goal Type Associated Problems Recent Progress Patient-Stated? Author Quit using tobacco (cigarettes, smokeless, etc) Tobacco Use Corey Cornell, KelechiD documented as of this encounter Visit Diagnoses Not on filedocumented in this encounter Additional Health Concerns Assessment Noted Time PHQ-9 Depression Total Score: 2 04/30/20 24 10:41 AM EDT documented as of this encounter Care Teams Sheather Relationship Specialty Start Date End Date Mackenzie Estrada MD [address] [place] [phone] PCP - General Family Medicine 07/10/20 Casper Magaña, RN [address] [place] [address] Registered Nurse Family Medicine 01/18/25 01/18/25 Ruth Ann Price 02/19/25 02/19/25 Ruth Ann Price 02/19/25 02/28/25 Ruth Ann Price 03/29/25 04/03/25 Hemalatha Pretty Tax DirectorHigh School Foreign Language Tutor 01/02/25 documented as of this encounter
--- OUTSIDE RECORDS SUMMARY | 2025-05-07 16:09 | XMS_ITS | Encounter Summary ---
Author Organization [employer] Address [address] [facility] 7t [place] [address] Care Team Providers Care Education Consultant Name Role Phone Mackenzie Estrada MD Primary Care Provider [phone] Reason for Visit * Reason Comments Med Refill Encounter Details Date Type Department Care Team ([facility] Contact Info) Description 04/07/2025 Refill [facility] [address] [place] [address] Mackenzie Estrada MD [address] [place] [address] Social History Tobacco Use Types Packs/Day Years [...] Office Visit [facility] [address] [place] [address] 06/07/2025 3:45 PM EST Office Visit [facility] [address] [place] [address] Mackenzie Estrada MD [address] [place] [address] documented as of this encounter Goals Goal [...] documented as of this encounter Care Teams Education Consultant Relationship Specialty Start Date End Date Mackenzie Estrada MD [address] [place] [address] PCP - General Family Medicine 07/10/20 Hemalatha Pretty Nutrient Management SpecialistFabric Sourcer 01/02/25 documented as of this encounter
--- OUTSIDE RECORDS SUMMARY | 2025-05-07 16:09 | XMS_ITS | Encounter Summary ---
Author Organization [employer] Address [address] [facility] [address] 7[address] [place] [address] Care Team Providers Care Record Changer Name Role Phone Mackenzie Estrada MD Primary Care Provider [phone] Casper Magaña RN Unavailable [phone] Ruth Ann Price Unavailable Unavailable Ruth Ann Price Unavailable Ruth Ann Price Unavailable Encounter Details Date Type Department Care Team (Late st Contact Info) Description 10/03/2023 Orders Only [facility] [address] [place] [address] Mackenzie Estrada MD [address] [place], [place] [phone] Bacterial vaginosis (Primary Dx) Social History Tobacco [...] Description 05/14/2025 9:45 AM EDT Office Visit [facility] [address] [place] [address] 06/07/2025 3:45 PM EST Office Visit [address] [address] Mackenzie Estrada MD [address] [place] [address] documented as of this encounter Goals Goal Patient Goal Type Associated Problems Recent Progress Patient-Stated? Author Quit using tobacco (cigarettes, smokeless, etc) Tobacco Use Corey Cornell, KelechiD documented as of this encounter Visit Diagnoses Diagnosis Bacterial vaginosis- Primary Unspecified vaginitis and vulvovaginitis documented in this encounter Care Teams Record Changer Relationship Specialty Start Date End Date Mackenzie Estrada MD [address] [place] [address] PCP - General Family Medicine 07/10/20 Casper Magaña, JENNIFER [address] [place] [phone] Registered Nurse Family Medicine 01/18/25 01/18/25 Ruth Ann Price 02/19/25 02/19/25 Ruth Ann Price 02/19/25 02/28/25 Ruth Ann Price 03/29/25 04/03/25 Hemalatha Pretty Principal Network EngineerPrimer Waterproofing Machine Operator 01/02/25 documented as of this encounter
--- OUTSIDE RECORDS SUMMARY | 2025-05-07 16:09 | XMS_ITS | Encounter Summary ---
Author Organization [employer] Address 75 [facility] 7t [place] [address] Care Team Providers Care Kiss Machine Operator Name Role Phone Mackenzie Estrada MD Primary Care Provider [phone] Ruth Ann Price Unavailable Unavailable Ruth Ann Price Unavailable Ruth Ann Price Unavailable Reason for Visit * Reason Comments Med Refill Encounter Details Date Type Department Care Team ([facility] st Contact Info) Description 02/01/2025 Refill [facility] MEDICINE [address] [place] [address] Ebony Daigle MD [address] [place], [place] [phone] Social History Tobacco Use Types Packs/Day Years [...] 05/14/2025 9:45 AM EDT Office Visit [facility] MEDICINE [address] [place] [address] 06/07/2025 3:45 PM EST Office Visit [facility] MEDICINE [address] [place] [address] Mackenzie Estrada MD [address] [place] [address] documented as of this encounter Goals Goal Patient Goal Type Associated Problems Recent Progress Patient-Stated? Author Quit using tobacco (cigarettes, smokeless, etc) Tobacco Use Corey Cornell, PharmD documented as of this encounter Visit Diagnoses Not on filedocumented in this encounter Additional Health Concerns Assessment Noted Time PHQ-9 Depression Total Score: 2 04/30/20 24 10:41 AM EDT documented as of this encounter Care Teams Kiss Machine Operator Relationship Specialty Start Date End Date Mackenzie Estrada MD [address] [place] [address] PCP - General Family Medicine 07/10/20 Ruth Ann Price 02/19/25 02/19/25 Ruth Ann Price 02/19/25 02/28/25 Ruth Ann Price 03/29/25 04/03/25 Hemalatha Pretty Rubber WorkerBusiness Continuity Manager 01/02/25 documented as of this encounter
--- OUTSIDE RECORDS SUMMARY | 2025-05-07 16:09 | XMS_ITS | Encounter Summary ---
Author Organization [employer] Address 75 [facility] 7t [place] [address] Care Team Providers Care Molecular Technologist Name Role Phone Mackenzie Estrada MD Primary Care Provider [phone] Encounter Details Date Type Department Care Team (Latest Contact Info) Description 04/05/2025 Results Follow-Up [facility] [address] [place], [place] [phone] Sisi Kennedy FNP [address] [place] [address] CBC auto differential Social History Tobacco Use [...] Tc to pt via S ID: [id number] to let them know per PCP Please [...] Description 05/14/2025 9:45 AM EDT Office Visit [facility] MEDICINE [address] [place] [address] [phone] 06/07/2025 3:45 PM EST Office Visit [address] [address] Mackenzie Estrada MD [address] [place] [address] documented as of this encounter Goals Goal Patient Goal Type Associated Problems Recent Progress Patient-Stated? Author Quit using tobacco (cigarettes, smokeless, etc) Tobacco Use Corey Cornell, KelechiD documented as of this encounter Visit Diagnoses Not on filedocumented in this encounter Additional Health Concerns Assessment Noted Time PHQ-9 Depression Total Score: 6 04/03/20 11:40 AM EDT documented as of this encounter Care Teams Molecular Technologist Relationship Specialty Start Date End Date Mackenzie Estrada MD [address] [place] [address] [phone] PCP - General Family Medicine 07/10/20 Hemalatha Pretty Concrete SmootherIv Technician 01/02/25 documented as of this encounter
--- OUTSIDE RECORDS SUMMARY | 2025-05-07 16:09 | XMS_ITS | Encounter Summary ---
Author Organization [employer] Address 75 [facility] 7t [place] [address] Care Team Providers Care Welding Machine Operator Gas Metal Arc Name Role Phone Mackenzie Estrada MD Primary Care Provider [phone] Casper Magaña RN Unavailable [phone] Ruth Ann Price Unavailable Unavailable Ruth Ann Price Unavailable Ruth Ann Price Unavailable Reason for Visit * Reason Comments Med Refill Encounter Details Date Type Department Care Team (Late st Contact Info) Description 02/08/2023 Refill [facility] MEDICINE 230 [place] [address] Mackenzie Estrada MD 230 [place] [address] Pain in both hands Social History Tobacco [...] Description 05/14/2025 9:45 AM EDT Office Visit [address] [address] 06/07/2025 3:45 PM EST Office Visit [address] [address] Mackenzie Estrada MD [address] [place] [address] documented as of this encounter Visit Diagnoses Diagnosis Pain in both hands documented in this encounter Care Teams Welding Machine Operator Gas Metal Arc Relationship Specialty Start Date End Date Mackenzie Estrada MD [address] [place] [address] PCP - General Family Medicine 07/10/20 Casper Magaña RN [address] [place] [address] Registered Nurse Family Medicine 01/18/25 01/18/25 Ruth Ann Price 02/19/25 02/19/25 Ruth Ann Price 02/19/25 02/28/25 Ruth Ann Price 03/29/25 04/03/25 Hemalatha Pretty Chief OrthoptistParts Counter Representative 01/02/25 documented as of this encounter
--- OUTSIDE RECORDS SUMMARY | 2025-05-07 16:09 | XMS_ITS | Encounter Summary ---
Author Organization [employer] Address 75 [facility] 7t [place] [address] Care Team Providers Care Stable Attendant Name Role Phone Mackenzie Estrada MD Primary Care Provider [phone] Casper Magaña RN Unavailable [phone] Ruth Ann Price Unavailable Unavailable Ruth Ann Price Unavailable Ruth Ann Price Unavailable Reason for Referral * Imaging (Routine) - Closed Specialty Diagnoses / Procedures Referred By Contac t Referred To Contact Radiology Diagnoses Abnormal ultrasound of pelvis Procedures MR Pelvis w/ and w/o Contrast Mackenzie Estrada MD 230 [place] [address] Phone: tel: fax: [address] Phone: tel: fax: Referral ID Status Reason Start Date Expiration Date Visits Re quested Visits Authorized [id number] Closed 10/31/2023 10/30/2024 1 1 Encounter Details Date Type Department Care Team (Late st Contact Info) Description 10/31/2023 Orders Only [facility] MEDICINE 230 [place], [place] [phone] Mackenzie Estrada MD [address] [place], [place] [phone] Abnormal ultrasound of pelvis (Primary Dx) Social [...] which I need to talk to her field 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/health education about. Thank you! documented in this encounter Plan of Treatment Upcoming Encounters Date Type Department Care Team (Late st Contact Info) Description 05/14/2025 9:45 AM EDT Office Visit [facility] MEDICINE [address] [place] [address] 06/07/2025 3:45 PM EST Office Visit [facility] MEDICINE [address] [place] [address] [phone] Mackenzie Estrada MD [address] [place] [address] documented as of this encounter Goals Goal [...] PM EDT Narrative 12/07/2023 9:11 AM EDT [address] [address] Magnetic Resonance Report Signed Patient: Ginette Arceo MR #: [id number] : 1975 Acct:[id number] Age/Sex: 48 / F ADM Date: 11/25/23 Loc: HO.MRI Attending Dr: Mackenzie Estrada MD Ordering Physician: Mackenzie Estrada Date of Service: 11/25/23 Procedure(s): MR pelvis wo/w con Accession Number(s): [id number] cc: Mackenzie Estrada EXAMINATION: MR PELVIS WITHOUT [...] measures 7.8 x 3.6 x 4.3 cm (kahsxe-tf-jmpojg x AP x transverse dimension). The junctional [...] in OV> 12/07/23 0907 DD/ 1505 TD/TT: Breading Machine Tender: PD Procedure Note Donotuseinterpreter, Image - 12/07/[address] [address] Magnetic Resonance Report Signed Patient: Ginette ArceoMR #: [id number] : 1975Acct:[id number] Age/Sex: 48 / FADM Date: 11/25/23 Loc: HO.MRI Attending Dr: Mackenzie Estrada MD Ordering Physician: Mackenzie Estrada Date of Service: 11/25/23 Procedure(s): MR pelvis wo/w con Accession Number(s): [id number] cc: Mackenzie Estrada EXAMINATION: MR PELVIS WITHOUT [...] measures 7.8 x 3.6 x 4.3 cm (ozfzrd-es-rtrqcm x AP x transverse dimension). The junctional [...] in OV> 12/07/23 0907 DD/ 1505 TD/TT: Breading Machine Tender: PD Mackenzie Estrada MD IMG MRI PROCEDURES Final Resul t documented in this encounter Visit Diagnoses Diagnosis Abnormal ultrasound of pelvis- Primary documented in this encounter Care Teams Stable Attendant Relationship Specialty Start Date End Date Mackenzie Estrada MD [address] [place] [address] PCP - General Family Medicine 07/10/20 Caspre Magaña, RN [address] [place] [address] Registered Nurse Family Medicine 01/18/25 01/18/25 Ruth Ann Price 02/19/25 02/19/25 Ruth Ann Price 02/19/25 02/28/25 Ruth Ann Price 03/29/25 04/03/25 Hemalahta Pretty Belling Machine OperatorMaster Police Detective 01/02/25 documented as of this encounter
--- OUTSIDE RECORDS SUMMARY | 2025-05-07 16:09 | XMS_ITS | Encounter Summary ---
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 [...] the past 12 months, has t he [employer], gas, oil or water Relayr threatened to shut off services in your [...] Office Visit [facility] MEDICINE [address] [place] [address] 06/07/2025 3:45 PM EST Office Visit [facility] MEDICINE [address] [place] [address] Mackenzie Estrada MD [address] [place] [address] documented as of this encounter Goals Goal [...] documented as of this encounter Care Teams Manager Support Relationship Specialty Start Date End Date Mackenzie Estrada MD [address] [place] [address] PCP - General Family Medicine 07/10/20 Hemalatha Pretty Personal Computer SpecialistBlending Machine Operator 01/02/25 documented as of this encounter
--- OUTSIDE RECORDS SUMMARY | 2025-05-07 16:09 | XMS_ITS | Encounter Summary ---
Author Organization [employer] Address [address] [facility] [address] 7t [place] [address] Care Team Providers Care Autism Tutor Name Role Phone Mackenzie Estrada MD Primary Care Provider [phone] Casper Magaña RN Unavailable [phone] Ruth Ann Price Unavailable Unavailable Ruth Ann Price Unavailable Ruth Ann Price Unavailable Encounter Details Date Type Department Care Team (Late st Contact Info) Description 12/13/2023 Orders Only [facility] MEDICINE 230 [place] [address] Mackenzie Estrada MD 230 [place], [place] [phone] Pain in both hands Social History Tobacco [...] [facility] MEDICINE [address] [place] [address] 06/07/2025 3:45 PM EST Office Visit [address] [address] Mackenzie Estrada MD [address] [place] [address] documented as of this encounter Goals Goal Patient Goal Type Associated Problems Recent Progress Patient-Stated? Author Quit using tobacco (cigarettes, smokeless, etc) Tobacco Use Corey Cornell, Bailey documented as of this encounter Visit Diagnoses Diagnosis Pain in both hands documented in this encounter Care Teams Autism Tutor Relationship Specialty Start Date End Date Mackenzie Estrada MD [address] [place] [address] PCP - General Family Medicine 07/10/20 Casper Magaña, JENNIFER 505 [place] [address] Registered Nurse Family Medicine 01/18/25 01/18/25 Ruth Ann Price 02/19/25 02/19/25 Ruth Ann Price 02/19/25 02/28/25 Ruth Ann Price 03/29/25 04/03/25 Hemalatha Pretty Tool ProgrammerValve Inspector 01/02/25 documented as of this encounter
--- OUTSIDE RECORDS SUMMARY | 2025-05-07 16:10 | XMS_ITS | Encounter Summary ---
Author Organization [employer] Address 75 [facility] 7t [place] [address] Care Team Providers Care Collections Clerk Name Role Phone Mackenzie Estrada MD Primary Care Provider [phone] Casper Magaña RN Unavailable [phone] Ruth Ann Price Unavailable Unavailable Ruth Ann Price Unavailable Ruth Ann Price Unavailable Reason for Visit * Reason Comments Med Refill Encounter Details Date Type Department Care Team (Late st Contact Info) Description 01/12/2024 Refill [facility] MEDICINE 230 [place] [address] Mackenzie Estrada MD 230 [place] [address] Rheumatoid arthritis involving multiple sites with positive rheumatoid factor ([facility] Social History [...] 05/14/2025 9:45 AM EDT Office Visit [facility] MEDICINE [address] [place] [address] 06/07/2025 3:45 PM EST Office Visit [facility] MEDICINE [address] [place] [address] Mackenzie Estrada MD [address] [place] [address] documented as of this encounter Goals Goal Patient Goal Type Associated Problems Recent Progress Patient-Stated? Author Quit using tobacco (cigarettes, smokeless, etc) Tobacco Use No Corey Lin, KelechiD documented as of this encounter Visit Diagnoses Diagnosis Rheumatoid arthritis involving multiple sites with positive rheumatoid factor (CMS/HCC) (HCC) documented in this encounter Care Teams Collections Clerk Relationship Specialty Start Date End Date Mackenzie Estrada MD [address] [place] [address] PCP - General Family Medicine 07/10/20 Casper Magaña, RN [address] [place] [address] [place] [address] Registered Nurse Family Medicine 01/18/25 01/18/25 Ruth Ann Price 02/19/25 02/19/25 Ruth Ann Price 02/19/25 02/28/25 Ruth Ann Price 03/29/25 04/03/25 Hemalatha Pretty Sales Recruitment SpecialistFruit Coordinator 01/02/25 documented as of this encounter
--- OUTSIDE RECORDS SUMMARY | 2025-05-07 16:10 | XMS_ITS | Encounter Summary ---
Author Organization [employer] Address 75 [facility] 7t [place] [address] Care Team Providers Care It Professional Name Role Phone Mackenzie Estrada MD Primary Care Provider [phone] Casper Magaña RN Unavailable [phone] Ruth Ann Price Unavailable Unavailable Ruth Ann Price Unavailable Ruth Ann Price Unavailable Reason for Visit * Reason Comments Med Refill Encounter Details Date Type Department Care Team (Late st Contact Info) Description 07/27/2023 Refill [facility] MEDICINE 230 [place] [address] Name, MD Mark 230 [place] [address] Pain in both hands Social History Tobacco [...] Description 05/14/2025 9:45 AM EDT Office Visit [facility] MEDICINE [address] [place] [address] 06/07/2025 3:45 PM EST Office Visit [address] [address] Mackenzie Estrada MD [address] [place] [address] documented as of this encounter Goals Goal Patient Goal Type Associated Problems Recent Progress Patient-Stated? Author Quit using tobacco (cigarettes, smokeless, etc) Tobacco Use No Corey Lin, Bailey documented as of this encounter Visit Diagnoses Diagnosis Pain in both hands documented in this encounter Care Teams It Professional Relationship Specialty Start Date End Date Mackenzie Estrada MD [address] [place] [address] PCP - General Family Medicine 07/10/20 Casper Magaña, JENNIFER [address] [place] [address] Registered Nurse Family Medicine 01/18/25 01/18/25 Ruth Ann Price 02/19/25 02/19/25 Ruth Ann Price 02/19/25 02/28/25 Ruth Ann Price 03/29/25 04/03/25 Hemalatha Pretty Shuttle OperatorFlag Car Driver 01/02/25 documented as of this encounter
--- OUTSIDE RECORDS SUMMARY | 2025-05-07 16:10 | XMS_ITS | Encounter Summary ---
Author Organization [employer] Address [address] [facility] [address] 7t [place] [address] Care Team Providers Care Corporate Treasury Analyst Name Role Phone Mackenzie Estrada MD Primary Care Provider [phone] Casper Magaña RN Unavailable [phone] Ruth nAn Price Unavailable Unavailable Ruth Ann Price Unavailable Ruth Ann Price Unavailable Encounter Details Date Type Department Care Team (Late st Contact Info) Description 05/21/[address] [facility] MEDICINE 230 [place] [address] Mackenzie Estrada MD 230 [place] [address] Social History Tobacco Use Types Packs/Day Years [...] [facility] MEDICINE [address] [place] [address] 06/07/2025 3:45 PM EST Office Visit [facility] MEDICINE [address] [place] [address] Mackenzie Estrada MD [address] [place] [address] documented as of this encounter Goals Goal [...] documented as of this encounter Care Teams Corporate Treasury Analyst Relationship Specialty Start Date End Date Mackenzie Estrada MD [address] [place] [address] PCP - General Family Medicine 07/10/20 Casper Magaña, RN [address] [place] [address] Registered Nurse Family Medicine 01/18/25 01/18/25 Ruth Ann Price 02/19/25 02/19/25 Ruth Ann Price 02/19/25 02/28/25 Ruth Ann Price 03/29/25 04/03/25 Hemalatha Pretty Biological InspectorTechnology Adoption Manager 01/02/25 documented as of this encounter
--- OUTSIDE RECORDS SUMMARY | 2025-05-07 16:10 | XMS_ITS | Encounter Summary ---
Author Organization [employer] Address 75 [facility] 7t [place] [address] Care Team Providers Care Pipeline Technician Name Role Phone Mackenzie Estrada MD Primary Care Provider [phone] Casper Magaña RN Unavailable [phone] Ruth Ann Price Unavailable Unavailable Ruth Ann Price Unavailable Ruth Ann Price Unavailable Reason for Visit * Reason Comments Med Refill Encounter Details Date Type Department Care Team (Late st Contact Info) Description 06/02/2023 Refill [facility] MEDICINE 230 [place] [address] Mackenzie Estrada MD 230 [place], [place] [phone] Pain in both hands Social History Tobacco [...] 9:45 AM EDT Office Visit [facility] MEDICINE [address] [place] [address] 06/07/2025 3:45 PM EST Office Visit [address] [address] Mackenzie Estrada MD [address] [place] [address] documented as of this encounter Goals Goal Patient Goal Type Associated Problems Recent Progress Patient-Stated? Author Quit using tobacco (cigarettes, smokeless, etc) Tobacco Use No Corey Lin, Bailey documented as of this encounter Visit Diagnoses Diagnosis Pain in both hands documented in this encounter Care Teams Pipeline Technician Relationship Specialty Start Date End Date Mackenzie Estrada MD [address] [place] [address] PCP - General Family Medicine 07/10/20 Casper Magaña, JENNIFER [address] [place] [address] Registered Nurse Family Medicine 01/18/25 01/18/25 Ruth Ann Price 02/19/25 02/19/25 Ruth Ann Price 02/19/25 02/28/25 Ruth Ann Price 03/29/25 04/03/25 Hemalatha Pretty Artificial Pearl MakerRecord Tabulating Clerk 01/02/25 documented as of this encounter
--- OUTSIDE RECORDS SUMMARY | 2025-05-07 16:10 | XMS_ITS | Clinical Summary ---
Author Organization [facility] Address [address] [place] [address] Support Name Relationship Address Phone Brayden Hernandez Emergency Contact [address] [place] [id number] Care Team Providers Care Guitar Instructor Name Role Phone Abdullahi Lizarraga MD Primary Care Provider [phone] Allergies Active Allergy Reactions Criticality Noted Date [...] age to complete this topic Care Teams Guitar Instructor Relationship Specialty Start Date End Date Abdullahi Lizarraga MD [address] [place] [address] PCP - General Nephrology 03/10/18
--- OUTSIDE RECORDS SUMMARY | 2025-05-07 16:10 | XMS_ITS | Encounter Summary ---
Author Organization [employer] Address 75 [facility] 7t [place] [address] Care Team Providers Care Cryptanalyst Name Role Phone Mackenzie Estrada MD Primary Care Provider [phone] Casper Magaña RN Unavailable [phone] Ruth Ann Price Unavailable Unavailable Ruth Ann Price Unavailable Ruth Ann Price Unavailable Reason for Visit * Reason Comments Med Refill Encounter Details Date Type Department Care Team ([facility] Contact Info) Description 09/22/2022 Refill [facility] 230 [place] [address] Sarika Palacios, RHONA 230 [place] [address] Tinea pedis of both feet Social History [...] Care Team ([facility] Contact Info) Description 05/14/2025 9:45 AM EDT Office Visit [address] [address] 06/07/2025 3:45 PM EST Office Visit [address] [address] Mackenzie Estrada MD [address] [place] [address] documented as of this encounter Visit Diagnoses Diagnosis Tinea pedis of both feet documented in this encounter Care Teams Cryptanalyst Relationship Specialty Start Date End Date Mackenzie Estrada MD [address] [place] [address] [phone] PCP - General Family Medicine 07/10/20 Casper Magaña, RN [address] [place] [address] Registered Nurse Family Medicine 01/18/25 01/18/25 Ruth Ann Price 02/19/25 02/19/25 Ruth Ann Price 02/19/25 02/28/25 Ruth Ann Price 03/29/25 04/03/25 Hemalatha Pretty Telemarketing ManagerToll Collector 01/02/25 documented as of this encounter
--- OUTSIDE RECORDS SUMMARY | 2025-05-07 16:10 | XMS_ITS | Encounter Summary ---
Author Organization [employer] Address 75 [facility] 7t [place] [address] Care Team Providers Care Product Support Manager Name Role Phone Mackenzie Estrada MD Primary Care Provider Casper Magaña RN Unavailable [phone] Ruth Ann Price Unavailable Unavailable Ruth Ann Price Unavailable Ruth Ann Price Unavailable Reason for Visit * Reason Onset Date Comments Error 08/16/2023 Encounter Details Date Type Department Care Team ([facility] st Contact Info) Description 08/16/2023 Telephone [facility] MEDICINE 230 [place], [place] [phone] Mackenzie Estrada MD 230 [place], [place] [phone] Error Social History Tobacco Use Types Packs/Day [...] Description 05/14/2025 9:45 AM EDT Office Visit [address] [address] 06/07/2025 3:45 PM EST Office Visit [address] [address] Mackenzie Estrada MD [address] [place] [address] documented as of this encounter Goals Goal Patient Goal Type Associated Problems Recent Progress Patient-Stated? Author Quit using tobacco (cigarettes, smokeless, etc) Tobacco Use No Corey Lin, Bailey documented as of this encounter Visit Diagnoses Not on filedocumented in this encounter Care Teams Product Support Manager Relationship Specialty Start Date End Date Mackenzie Estrada MD [address] [place] [address] PCP - General Family Medicine 07/10/20 Casper Magaña, JENNIFER [address] [place] [address] Registered Nurse Family Medicine 01/18/25 01/18/25 Ruth Ann Price 02/19/25 02/19/25 Ruth Ann Price 02/19/25 02/28/25 Ruth Ann Price 03/29/25 04/03/25 Hemalatha Pretty Ssn/Ssbn Assistant NavigatorSupervisor Functional Testing 01/02/25 documented as of this encounter
--- OUTSIDE RECORDS SUMMARY | 2025-05-07 16:10 | XMS_ITS | Encounter Summary ---
Author Organization [employer] Address [address] [facility] [address] 7t [place] [address] Care Team Providers Care Nuclear Reactor Technician Name Role Phone Mackenzie Estrada MD Primary Care Provider [phone] Casper Magaña RN Unavailable [phone] Ruth Ann Price Unavailable Unavailable Ruth Ann Price Unavailable Ruth Ann Price Unavailable Encounter Details Date Type Department Care Team (Late st Contact Info) Description 06/01/2023 Orders Only [facility] [address] [place] [address] Mackenzie Estrada MD 230 [place] [address] Encounter for smoking cessation counseling (Primary Dx) [...] Office Visit [facility] [address] [place] [address] 06/07/2025 3:45 PM EST Office Visit [address] [address] Mackenzie Estrada MD [address] [place] [address] documented as of this encounter Goals Goal Patient Goal Type Associated Problems Recent Progress Patient-Stated? Author Quit using tobacco (cigarettes, smokeless, etc) Tobacco Use Corey Cornell, KelechiD documented as of this encounter Visit Diagnoses Diagnosis Encounter for smoking cessation counseling- Primary documented in this encounter Care Teams Nuclear Reactor Technician Relationship Specialty Start Date End Date Mackenzie Estrada MD [address] [place] [address] PCP - General Family Medicine 07/10/20 Casper Magaña, JENNIFER [address] [place] [address] Registered Nurse Family Medicine 01/18/25 01/18/25 Ruth Ann Price 02/19/25 02/19/25 Ruth Ann Price 02/19/25 02/28/25 Ruth Ann Price 03/29/25 04/03/25 Hemalatha Pretty Milking Machine TechnicianWeir Fisherman 01/02/25 documented as of this encounter
--- OUTSIDE RECORDS SUMMARY | 2025-05-07 16:10 | XMS_ITS | Encounter Summary ---
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 [...] Description 05/14/2025 9:45 AM EDT Office Visit [facility] [address] [place] [address] 06/07/2025 3:45 PM EST Office Visit [facility] [address] [place] [address] Mackenzie Estrada MD [address] [place] [address] documented as of this encounter Goals Goal [...] documented as of this encounter Care Teams Wholesale Manager Relationship Specialty Start Date End Date Mackenzie Estrada MD [address] [place] [address] PCP - General Family Medicine 07/10/20 Ruth Ann Price 03/29/25 04/03/25 Hemalatha Pretty Photographic SupervisorSafety Director 01/02/25 documented as of this encounter
--- OUTSIDE RECORDS SUMMARY | 2025-05-07 16:10 | XMS_ITS | Encounter Summary ---
Author Organization [employer] Address 75 [facility] 7t [place] [address] Care Team Providers Care Flow Machine Operator Name Role Phone Mackenzie Estrada MD Primary Care Provider [phone] Casper Magaña RN Unavailable [phone] Ruth Ann Price Unavailable Unavailable Ruth Ann Price Unavailable Ruth Ann Price Unavailable Reason for Visit * Reason Comments Med Refill Encounter Details Date Type Department Care Team (Late st Contact Info) Description 06/03/2023 Refill [facility] 230 [place] [address] Mackenzie Estrada MD 230 [place], [place] [phone] Pain in both hands Social History Tobacco [...] AM EDT Office Visit [facility] [address] [place] [address] 06/07/2025 3:45 PM EST Office Visit [address] [address] Mackenzie Estrada MD [address] [place] [address] documented as of this encounter Goals Goal Patient Goal Type Associated Problems Recent Progress Patient-Stated? Author Quit using tobacco (cigarettes, smokeless, etc) Tobacco Use No Corey Lin, Bailey documented as of this encounter Visit Diagnoses Diagnosis Pain in both hands documented in this encounter Care Teams Flow Machine Operator Relationship Specialty Start Date End Date Mackenzie Estrada MD [address] [place] [address] PCP - General Family Medicine 07/10/20 Casper Magaña, JENNIFER [address] [place] [address] Registered Nurse Family Medicine 01/18/25 01/18/25 Ruth Ann Price 02/19/25 02/19/25 Ruth Ann Price 02/19/25 02/28/25 Ruth Ann Price 03/29/25 04/03/25 Hemalatha Pretty Leather Belt ShaperWater Plant Operator 01/02/25 documented as of this encounter
--- OUTSIDE RECORDS SUMMARY | 2025-05-07 16:10 | XMS_ITS | Encounter Summary ---
Author Organization [employer] Address [address] [facility] [address] 7t [place] [address] Care Team Providers Care Global Ceo Name Role Phone Mackenzie Estrada MD Primary Care Provider [phone] Casper Magaña RN Unavailable [phone] Ruth Ann Price Unavailable Unavailable Ruth Ann Price Unavailable Ruth Ann Price Unavailable Encounter Details Date Type Department Care Team (Late st Contact Info) Description 05/10/2024 Orders Only [facility] 230 [place] [address] Mackenzie Estrada MD 230 [place] [address] Social History Tobacco Use Types Packs/Day Years [...] Description 05/14/2025 9:45 AM EDT Office Visit [facility] [address] [place] [address] 06/07/2025 3:45 PM EST Office Visit [facility] [address] [place] [address] Mackenzie Estrada MD [address] [place] [address] documented as of this encounter Goals Goal Patient Goal Type Associated Problems Recent Progress Patient-Stated? Author Quit using tobacco (cigarettes, smokeless, etc) Tobacco Use Corey Cornell, KelechiD documented as of this encounter Visit Diagnoses Not on filedocumented in this encounter Additional Health Concerns Assessment Noted Time PHQ-9 Depression Total Score: 2 04/30/20 24 10:41 AM EDT documented as of this encounter Care Teams Global Ceo Relationship Specialty Start Date End Date Mackenzie Estrada MD [address] [place] [address] PCP - General Family Medicine 07/10/20 Casper Magaña, RN [address] [place] [address] [place] [address] Registered Nurse Family Medicine 01/18/25 01/18/25 Ruth Ann Price 02/19/25 02/19/25 Ruth Ann Price 02/19/25 02/28/25 Ruth Ann Price 03/29/25 04/03/25 Hemalatha Pretty Dispensing And Measuring OpticianPaint Formulator 01/02/25 documented as of this encounter
--- OUTSIDE RECORDS SUMMARY | 2025-05-07 16:10 | XMS_ITS | Encounter Summary ---
Author Organization [employer] Address 75 [facility] 7t [place] [address] Care Team Providers Care Word Processing Specialist Name Role Phone Mackenzie Estrada MD Primary Care Provider [phone] Casper Magaña RN Unavailable [phone] Ruth Ann Price Unavailable Unavailable Ruth Ann Price Unavailable Ruth Ann Price Unavailable Reason for Visit * Reason Onset Date Comments Hospital Follow-up 02/24/2024 Encounter Details Date Type Department Care Team ([facility] st Contact Info) Description 02/24/2024 Telephone [facility] 230 [place], [place] [phone] Mackenzie Estrada MD 230 [place], [place] [phone] Hospital Follow-up Social History Tobacco Use Types [...] t he electric, gas, oil or water [employer] threatened to shut off services in your [...] from pt requesting a HDF appt. Hospital: [facility] Date of admission: 02/19 Discharge date: 02/23 Diagnosed: Rectal Bleeding Telugu Speaker documented in this encounter Plan of Treatment Upcoming Encounters Date Type Department Care Team (Late st Contact Info) Description 05/14/2025 9:45 AM EDT Office Visit [facility] [address] [place] [address] 06/07/2025 3:45 PM EST Office Visit [facility] [address] [place] [address] Mackenzie Estrada MD [address] [place] [address] documented as of this encounter Goals Goal Patient Goal Type Associated Problems Recent Progress Patient-Stated? Author Quit using tobacco (cigarettes, smokeless, etc) Tobacco Use No Corey Lin, PharmD documented as of this encounter Visit Diagnoses Not on filedocumented in this encounter Care Teams Word Processing Specialist Relationship Specialty Start Date End Date Mackenzie Estrada MD 230 [place] [address] PCP - General Family Medicine 07/10/20 Casper Magaña, JENNIFER [address] [place] [address] Registered Nurse Family Medicine 01/18/25 01/18/25 Ruth Ann Price 02/19/25 02/19/25 Ruth Ann Price 02/19/25 02/28/25 Ruth Ann Price 03/29/25 04/03/25 Hemalatha Pretty Ict EducatorNetwork Engineer 01/02/25 documented as of this encounter
--- OUTSIDE RECORDS SUMMARY | 2025-05-07 16:10 | XMS_ITS | Encounter Summary ---
Author Organization [employer] Address 75 [facility] 7t [place] [address] Care Team Providers Care Art Dealer Name Role Phone Mackenzie Estrada MD Primary Care Provider [phone] Casper Magaña RN Unavailable [phone] Ruth Ann Price Unavailable Unavailable Ruth Ann Price Unavailable Ruth Ann Price Unavailable Reason for Visit * Reason Comments Med Refill Encounter Details Date Type Department Care Team (Late st Contact Info) Description 07/20/2024 Refill [facility] 230 [place] [address] Mackenzie Estrada MD 230 [place] [address] 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 Social History Tobacco Use Types [...] 05/14/2025 9:45 AM EDT Office Visit [facility] [address] [place] [address] 06/07/2025 3:45 PM EST Office Visit [facility] [address] [place] [address] Mackenzie Estrada MD [address] [place] [address] documented as of this encounter Goals Goal [...] Date End Date Mackenzie Estrada MD 230 [place] [address] PCP - General Family Medicine 07/10/20 Casper Magaña, JENNIFER [address] [place] [address] Registered Nurse Family Medicine 01/18/25 01/18/25 Ruth Ann Price 02/19/25 02/19/25 Ruth Ann Price 02/19/25 02/28/25 Ruth Ann Price 03/29/25 04/03/25 Hemalatha Pretty Ob/Gyn DoctorAmerican Studies Professor 01/02/25 documented as of this encounter
--- OUTSIDE RECORDS SUMMARY | 2025-05-07 16:10 | XMS_ITS | Encounter Summary ---
Author Organization [employer] Address 75 [facility] 7t [place] [address] Care Team Providers Care Contracts Specialist Name Role Phone Mackenzie Estrada MD Primary Care Provider [phone] Casper Magaña RN Unavailable [phone] Ruth Ann Price Unavailable Unavailable Ruth Ann Price Unavailable Ruth Ann Price Unavailable Reason for Visit * Reason Comments Med Refill Encounter Details Date Type Department Care Team (Late st Contact Info) Description 07/21/2023 Refill [facility] 230 [place] [address] Name, MD Mark 230 [place] [address] Pain in both hands Social History Tobacco [...] 05/14/2025 9:45 AM EDT Office Visit [facility] [address] [place] [address] 06/07/2025 3:45 PM EST Office Visit [address] [address] Mackenzie Estrada MD [address] [place] [address] documented as of this encounter Goals Goal Patient Goal Type Associated Problems Recent Progress Patient-Stated? Author Quit using tobacco (cigarettes, smokeless, etc) Tobacco Use No Corey Lin, Bailey documented as of this encounter Visit Diagnoses Diagnosis Pain in both hands documented in this encounter Care Teams Contracts Specialist Relationship Specialty Start Date End Date Mackenzie Estrada MD [address] [place] [address] PCP - General Family Medicine 07/10/20 Casper Magaña, JENNIFER [address] [place] [address] Registered Nurse Family Medicine 01/18/25 01/18/25 Ruth Ann Price 02/19/25 02/19/25 Ruth Ann Price 02/19/25 02/28/25 Ruth Ann Price 03/29/25 04/03/25 Hemalatha Pretty Airframe And Powerplant MechanicDriver Recruiter 01/02/25 documented as of this encounter
--- OUTSIDE RECORDS SUMMARY | 2025-05-07 16:10 | XMS_ITS | Encounter Summary ---
Author Organization [employer] Address [address] [facility] [address] 7t [place] [address] Care Team Providers Care Ash Kier Boiler Name Role Phone Mackenzie Estrada MD Primary Care Provider [phone] Casper Magaña RN Unavailable [phone] Ruth Ann Price Unavailable Unavailable Ruth Ann Price Unavailable Ruth Ann Price Unavailable Encounter Details Date Type Department Care Team (Late st Contact Info) Description 06/03/2023 Orders Only [facility] 230 [place] [address] Mackenzie Estrada MD 230 [place], [place] [phone] Pain in both hands Social History Tobacco [...] EDT Office Visit [facility] [address] [place] [address] 06/07/2025 3:45 PM EST Office Visit [address] [address] Mackenzie Estrada MD [address] [place] [address] documented as of this encounter Goals Goal [...] PM EST Narrative 06/03/2023 5:47 PM EDT [address] [address] XRay Report Signed Patient: Ginette Arceo MR #: [id number] : 1975 Acct:[id number] Age/Sex: 47 / F ADM Date: 06/25/23 Loc: HO.ED Attending Dr: Ordering Physician: Treasure Clemons Date of Service: 06/25/23 Procedure(s): XR chest 2V Accession Number(s): [id number] cc: Mackenzie Estrada; Treasure Clemons EXAMINATION: XR [...] in OV> 06/25/23 1230 DD/ 1215 TD/TT: Mold Designer: [facility] Procedure Note Donotuseinterpreter, Image - 06/25/[address] [address] XRay Report Signed Patient: Ginette ArceoMR #: [id number] : 1975Acct:[id number] Age/Sex: 47 / FADM Date: 06/25/23 Loc: HO.ED Attending Dr: Ordering Physician: Treasure Clemons Date of Service: 06/25/23 Procedure(s): XR chest 2V Accession Number(s): [id number] cc: Mackenzie Estrada; Treasure Clemons EXAMINATION: XR [...] in OV> 06/25/23 1230 DD/ 1215 TD/TT: Mold Designer: [facility] External Provider IMG XR PROCEDURES Edited Result - Final * (ABNORMAL) Urinalysis, Complete, with Reflex to Culture (06/03/2023 4:49 PM EDT) Color Urine Yellow [facility] Appearance Urine Clear [facility] PH 5.5 5.0 - 9.0 [facility] Glucose Urine UA Negative Negative mg/dL [facility] Urine Blood Large (3+)(A) Negative [facility] Specific Emmet - Urine 1.025 1.005 - 1.025 [facility] Urine Protein Negative Neg-Trace mg/dL [facility] Urine Ketones Negative Negative mg/dL [facility] Nitrite Urine Negative Negative [facility] Leukocyte Esterase Urine Negative Negative [facility] RBC Urine >20(A) 0 - 2 /HPF [facility] Urine WBC 0-5 0 - 5 /HPF [facility] Urine Squamous Epithelial Cell 11-20 0 - 2 /HPF [facility] Urine Bacteria 1+ None Seen [facility] Hyaline Casts, Urine 0-2 0 - 2 /LPF [facility] 06/03/2023 4:49 PM EDT 06/03/2023 4:52 PM EDT Narrative [facility] - 06/03/2023 5:00 PM EDT Urine, Clean Catch us Generic External Data Provider LAB URINE ORDERAB LES Final Result Performing Organization Address [facility] de Phone Number [facility] [address] [place] [phone] * (ABNORMAL) Urinalysis w/reflex microscopic (06/03/2023 4:49 PM EDT) Color Urine Yellow [facility] Appearance Urine Clear [facility] PH 5.5 5.0 - 9.0 [facility] Glucose Urine UA Negative Negative mg/dL [facility] Urine Blood Large (3+)(A) Negative [facility] Specific Emmet - Urine 1.025 1.005 - 1.025 [facility] Urine Protein Negative Neg-Trace mg/dL [facility] Urine Ketones Negative Negative mg/dL [facility] Nitrite Urine Negative Negative [facility] Leukocyte Esterase Urine Negative Negative [facility] 06/03/2023 4:49 PM EDT 06/03/2023 4:52 PM EDT [facility] - 06/03/2023 4:57 PM EDT Urine, Clean Catch Generic External Data Provider LAB URINE ORDERAB LES Final Result Performing Organization Address [facility] de Phone Number [facility] [address] [place] [phone] * Influenza A B2 ID NOW (Corona) (06/03/2023 4:34 PM EDT) IDNOW SERIAL# [id number] [facility] Influenza A Negative Negative [facility] Influenza B2 Negative Negative [facility] Influenza A B2 Note See Note [facility] Comment:The Corona ID NOW In fluenza [...] LAB MICROBIOLOGY - GENERAL ORDERABLES Final Result [facility] [address] [place] [address] [phone] * COVID-19 ID NOW (Zuvvu) (06/03/2023 4:34 PM EDT) IDNOW SERIAL# [id number] [facility] COVID-19 TEST Negative Negative [facility] COVID-19 NOTE See Note [facility] Comment: Results are for the identification of SARS-CoV2 RNA. TheSARS-CoV2 RNA is generally detectable in respiratory samplesduring the acute phase of infection. Positive results areindicative of the presence of SARS-CoV-2 RNA; clinicalcorrelation with patient history and other diagnosticinformation is necessary to determine patient infectionstatus. Positive results do not rule out bacterial infectionor co- infection with other viruses.Testing facilities within the [facility] and itsterritories are required to report all [...] use by authorized laboratories.Testing performed on the [place] ID NOW utilizing NAAT. 06/03/2023 4:34 PM EDT 06/03/2023 4:40 PM EDT us Generic External Data Provider LAB MOLECULAR ARNAV GNOSTICS ORDERABLES Final Result [facility] [address] [place] [address] [phone] documented in this encounter Visit Diagnoses Diagnosis Pain in both hands documented in this encounter Care Teams Ash Kier Boiler Relationship Specialty Start Date End Date Mackenzie Estrada MD [address] [place] [address] PCP - General Family Medicine 07/10/20 Casper Magaña, RN [address] [place] [address] Registered Nurse Family Medicine 01/18/25 01/18/25 Ruth Ann Price 02/19/25 02/19/25 Ruth Ann Price 02/19/25 02/28/25 Ruth Ann Price 03/29/25 04/03/25 Hemalatha Pretty Insulation SupervisorFinish Off Operator 01/02/25 documented as of this encounter
--- OUTSIDE RECORDS SUMMARY | 2025-05-07 16:10 | XMS_ITS | Encounter Summary ---
Author Organization [employer] Address 75 [facility] 7t [place] [address] Care Team Providers Care Fitness And Wellness Coordinator Name Role Phone Mackenzie Estrada MD Primary Care Provider [phone] Casper Magaña RN Unavailable [phone] Ruth Ann Price Unavailable Unavailable Ruth Ann Price Unavailable Ruth Ann Price Unavailable Reason for Visit * Reason Comments Med Refill Encounter Details Date Type Department Care Team (Late st Contact Info) Description 08/26/2023 Refill [facility]INE [address] [place] [address] Sisi Kennedy, FARHEEN [address] [place] [address] Viral upper respiratory tract infection Social History [...] Description 05/14/2025 9:45 AM EDT Office Visit [address] [address] 06/07/2025 3:45 PM EST Office Visit [address] [address] Mackenzie Estrada MD [address] [place] [address] documented as of this encounter Goals Goal Patient Goal Type Associated Problems Recent Progress Patient-Stated? Author Quit using tobacco (cigarettes, smokeless, etc) Tobacco Use No Corey Lin, Bailey documented as of this encounter Visit Diagnoses Diagnosis Viral upper respiratory tract infection Acute upper respiratory infections of unspecified site documented in this encounter Care Teams Fitness And Wellness Coordinator Relationship Specialty Start Date End Date Mackenzie Estrada MD [address] [place] [address] PCP - General Family Medicine 07/10/20 Casper Magaña, JENNIFER [address] [place] [address] Registered Nurse Family Medicine 01/18/25 01/18/25 Ruth Ann Price 02/19/25 02/19/25 Ruth Ann Price 02/19/25 02/28/25 Ruth Ann Price 03/29/25 04/03/25 Hemalatha Pretty Cut Off Sawyer LogTwist Tester 01/02/25 documented as of this encounter
--- OUTSIDE RECORDS SUMMARY | 2025-05-07 16:10 | XMS_ITS | Encounter Summary ---
Author Organization [employer] Address 75 [facility] 7t [place] [address] Care Team Providers Care Vehicle Technician Name Role Phone Mackenzie Estrada MD Primary Care Provider [phone] Casper Magaña RN Unavailable [phone] Ruth Ann Price Unavailable Unavailable Ruth Ann Price Unavailable Ruth Ann Price Unavailable Reason for Visit * Reason Comments Med Refill Encounter Details Date Type Department Care Team (Late st Contact Info) Description 07/28/2022 Refill [facility] 230 [place] [address] Mackenzie Estrada MD 230 [place] [address] Pain in both hands Social History Tobacco [...] Description 05/14/2025 9:45 AM EDT Office Visit [address] [address] 06/07/2025 3:45 PM EST Office Visit [address] [address] Mackenzie Estrada MD [address] [place] [address] documented as of this encounter Visit Diagnoses Diagnosis Pain in both hands documented in this encounter Care Teams Vehicle Technician Relationship Specialty Start Date End Date Mackenzie Estrada MD [address] [place] [address] PCP - General Family Medicine 07/10/20 Casper Magaña, JENNIFER [address] [place] [address] Registered Nurse Family Medicine 01/18/25 01/18/25 Ruth Ann Price 02/19/25 02/19/25 Ruth Ann Price 02/19/25 02/28/25 Ruth Ann Price 03/29/25 04/03/25 Hemalatha Pretty Mill WorkerSoap Drier Tender 01/02/25 documented as of this encounter
--- OUTSIDE RECORDS SUMMARY | 2025-05-07 16:10 | XMS_ITS | Encounter Summary ---
Author Organization [employer] Address 75 [facility] 7t [place] [address] Care Team Providers Care Reading Tutor Name Role Phone Mackenzie Estrada MD Primary Care Provider [phone] Casper Magaña RN Unavailable [phone] Ruth Ann Price Unavailable Unavailable Ruth Ann Price Unavailable Ruth Ann Price Unavailable Reason for Visit * Reason Comments Med Refill Encounter Details Date Type Department Care Team (Late st Contact Info) Description 07/26/2023 Refill [facility] MED[facility]INE [address] [place] [address] Name, MD Mark [address] [place] [address] Pain in both hands Social History Tobacco [...] Visit [facility] [address] [place] [address] 06/07/2025 3:45 PM EST Office Visit [address] [address] Mackenzie Estrada MD [address] [place] [address] documented as of this encounter Goals Goal Patient Goal Type Associated Problems Recent Progress Patient-Stated? Author Quit using tobacco (cigarettes, smokeless, etc) Tobacco Use No Corey Lin, Bailey documented as of this encounter Visit Diagnoses Diagnosis Pain in both hands documented in this encounter Care Teams Reading Tutor Relationship Specialty Start Date End Date Mackenzie Estrada MD [address] [place] [address] PCP - General Family Medicine 07/10/20 Casper Magaña, JENNIFER [address] [place] [phone] Registered Nurse Family Medicine 01/18/25 01/18/25 Ruth Ann Price 02/19/25 02/19/25 Ruth Ann Price 02/19/25 02/28/25 Ruth Ann Price 03/29/25 04/03/25 Hemalatha Pretty Genetic CoordinatorMicrobiology Lab Technician 01/02/25 documented as of this encounter
--- OUTSIDE RECORDS SUMMARY | 2025-05-07 16:10 | XMS_ITS | Encounter Summary ---
Author Organization [employer] Address 75 [facility] 7t [place] [address] Care Team Providers Care Dairy Nutrition Specialist Name Role Phone Mackenzie Estrada MD Primary Care Provider [phone] Casper Magaña RN Unavailable [phone] Ruth Ann Price Unavailable Unavailable Ruth Ann Priec Unavailable Ruth Ann Price Unavailable Reason for Visit * Reason Onset Date Comments Appointment Request 08/16/2023 Encounter Details Date Type Department Care Team ([facility] st Contact Info) Description 08/16/2023 Telephone [facility] [address] [place], [place] [phone] Mackenzie Estrada MD [address] [place], [place] [phone] Appointment Request Social History Tobacco Use Types [...] be seen today. Please contact pt @ [phone] Serbian Speaker documented in this encounter Plan of Treatment Upcoming Encounters Date Type Department Care Team (Late st Contact Info) Description 05/14/2025 9:45 AM EDT Office Visit [facility] [address] [place] [address] 06/07/2025 3:45 PM EST Office Visit [facility] [address] [place] [address] Mackenzie Estrada MD [address] [place] [address] [place] [phone] documented as of this encounter Goals Goal Patient Goal Type Associated Problems Recent Progress Patient-Stated? Author Quit using tobacco (cigarettes, smokeless, etc) Tobacco Use Corey Cornell, KelechiD documented as of this encounter Visit Diagnoses Not on filedocumented in this encounter Care Teams Dairy Nutrition Specialist Relationship Specialty Start Date End Date Mackenzie Estrada MD [address] [place], [place] [phone] PCP - General Family Medicine 07/10/20 Casper Magaña, JENNIFER [address] [place] [address] Registered Nurse Family Medicine 01/18/25 01/18/25 Ruth Ann Price 02/19/25 02/19/25 Ruth Ann Price 02/19/25 02/28/25 Ruth Ann Price 03/29/25 04/03/25 Hemalatha Pretty Harness TierOffice Messenger Helper 01/02/25 documented as of this encounter
--- OUTSIDE RECORDS SUMMARY | 2025-05-07 16:10 | XMS_ITS | Encounter Summary ---
Author Organization [employer] Address [address] [facility] [address] 7t [place] [address] Care Team Providers Care Slab Polisher Name Role Phone Mackenzie Estrada MD Primary Care Provider [phone] Casper Magaña RN Unavailable [phone] Ruth Ann Price Unavailable Unavailable Ruth Ann Price Unavailable Ruth Ann Price Unavailable Encounter Details Date Type Department Care Team (Late st Contact Info) Description 04/10/2024 Orders Only [facility] MED[facility]INE 230 [place] [address] Mackenzie Estrada MD 230 [place] [address] Social History Tobacco Use Types Packs/Day Years [...] Visit [facility] [address] [place] [address] 06/07/2025 3:45 PM EST Office Visit [facility] [address] [place] [address] Mackenzie Estrada MD [address] [place] [address] documented as of this encounter Goals Goal Patient Goal Type Associated Problems Recent Progress Patient-Stated? Author Quit using tobacco (cigarettes, smokeless, etc) Tobacco Use No Corey Lin, Bailey documented as of this encounter Visit Diagnoses Not on filedocumented in this encounter Care Teams Slab Polisher Relationship Specialty Start Date End Date Mackenzie Estrada MD [address] [place] [address] PCP - General Family Medicine 07/10/20 Casper Magaña, JENNIFER [address] [place] [address] Registered Nurse Family Medicine 01/18/25 01/18/25 Ruth Ann Price 02/19/25 02/19/25 Ruth Ann Price 02/19/25 02/28/25 Ruth Ann Price 03/29/25 04/03/25 Hemalatha Pretty Pilot CaptainCustodian Blood Bank 01/02/25 documented as of this encounter
--- OUTSIDE RECORDS SUMMARY | 2025-05-07 16:10 | XMS_ITS | Encounter Summary ---
Author Organization [employer] Address 75 [facility] 7t [place] [address] Care Team Providers Care Heavy Repairer Name Role Phone Mackenzie Estrada MD Primary Care Provider [phone] Casper Magaña RN Unavailable [phone] Ruth Ann Price Unavailable Unavailable Ruth Ann Price Unavailable Ruth Ann Price Unavailable Encounter Details Date Type Department Care Team (Late Contact Info) Description 03/29/2023 Abstract [facility] [address] [place] [address] [phone] Cecilia Henriquez Social History Tobacco Use Types [...] Description 05/14/2025 9:45 AM EDT Office Visit [facility] [address] [place] [address] 06/07/2025 3:45 PM EST Office Visit [facility] [address] [place] [address] [phone] Mackenzie Estrada MD [address] [place] [address] documented as of this encounter Procedures Procedure Name Priority Date/Time Associated Diagnosis Comments COLONOSCOPY Routine 10/28/2017 documented in this encounter Results * Colonoscopy (10/28/2017) Colonoscopy Normal Normal Narrative Cecilia Henriquez - 10/28/2017 Recommended 10 year follow up ([facility] [place] [place] Historical Provider [employer] MAINTENANCE Edited Result - Final documented in this encounter Visit Diagnoses Not on filedocumented in this encounter Care Teams Heavy Repairer Relationship Specialty Start Date End Date Mackenzie Estrada MD [address] [place] [address] PCP - General Family Medicine 07/10/20 Casper Magaña, RN [address] [place] [address] Registered Nurse Family Medicine 01/18/25 01/18/25 Ruth Ann Price 02/19/25 02/19/25 Ruth Ann Price 02/19/25 02/28/25 Ruth Ann Price 03/29/25 04/03/25 Hemalatha Pretty Hospital CleanerPlasticator 01/02/25 documented as of this encounter
--- OUTSIDE RECORDS SUMMARY | 2025-05-07 16:10 | XMS_ITS | Encounter Summary ---
Author Organization [employer] Address 75 [facility] 7t [place] [address] Care Team Providers Care Concrete Pump Operator Helper Name Role Phone Mackenzie Estrada MD Primary Care Provider [phone] Casper Magaña RN Unavailable [phone] Ruth Ann Price Unavailable Unavailable Ruth Ann Price Unavailable Ruth Ann Price Unavailable Reason for Visit * Reason Onset Date Comments Triage 11/10/2022 Encounter Details Date Type Department Care Team ([facility] st Contact Info) Description 11/10/[address] [facility] [address] [place] [address] Mackenzie Estrada MD [address] [place] [address] Triage Social History Tobacco Use Types Packs/Day [...] - 11/11/2022 11:10 AM EDT TC to [phone] via [employer] interpreters in regards to below message. Pt reports she went to [facility] since [facility] did not return her call. RN informed pt triage nurses attempted to call pt x2 however pt did not answer. RN reviewed [facility] ED note and pt presented to ED [...] however she has not been able to picking belt operator the nystatin medication because [facility] [...] if it was received and ready for picking belt operator. Pt verbalized understanding. RN advised pt if her rash does not resolve with medication and her pain does not resolve to call [facility] to schedule an appt for further evaluation. Pt verbalized understanding. Pt to F/U PRN. RN has printed ED note and placed in scan bin * Telephone Encounter - Chika Ingram LPN - 11/10/2022 2:30 PM EDT Triage call returned to patient with [employer] bread room hand [phone] to listed number x 2 no answer. Left message to return call to [phone]. Team Nurses tasked to follow with patient [...] Description 05/14/2025 9:45 AM EDT Office Visit [address] [place] [address] [address] 06/07/2025 3:45 PM EST Office Visit [address] [place] [address] [phone] Mackenzie Estrada MD [address] [place] [address] documented as of this encounter Visit Diagnoses Not on filedocumented in this encounter Care Teams Concrete Pump Operator Helper Relationship Specialty Start Date End Date Mackenzie Estrada MD [address] [place], [place] [phone] PCP - General Family Medicine 07/10/20 Casper Magaña, JENNIFER [address] [place] [address] Registered Nurse Family Medicine 01/18/25 01/18/25 Ruth Ann Price 02/19/25 02/19/25 Ruth Ann Price 02/19/25 02/28/25 Ruth Ann Price 03/29/25 04/03/25 Hemalatha Pretty Hook And Eye Machine OperatorSap Crm Developer 01/02/25 documented as of this encounter
--- OUTSIDE RECORDS SUMMARY | 2025-05-07 16:10 | XMS_ITS | Encounter Summary ---
Author Organization [employer] Address 75 [facility] 7t [place] [address] Care Team Providers Care Psychiatric Orderly Name Role Phone Mackenzie Estrada MD Primary Care Provider [phone] Casper Magaña RN Unavailable [phone] Ruth Ann Price Unavailable Unavailable Ruth Ann Price Unavailable Ruth Ann Price Unavailable Reason for Visit * Reason Comments Med Refill Encounter Details Date Type Department Care Team (Late st Contact Info) Description 06/01/2023 Refill [facility] 230 [place] [address] Mackenzie Estrada MD 230 [place], [place] [phone] Pain in both hands Social History Tobacco [...] Description 05/14/2025 9:45 AM EDT Office Visit [facility] [address] [place] [address] 06/07/2025 3:45 PM EST Office Visit [address] [address] Mackenzie Estrada MD [address] [place] [address] documented as of this encounter Goals Goal Patient Goal Type Associated Problems Recent Progress Patient-Stated? Author Quit using tobacco (cigarettes, smokeless, etc) Tobacco Use No Corey Lin, Bailey documented as of this encounter Visit Diagnoses Diagnosis Pain in both hands documented in this encounter Care Teams Psychiatric Orderly Relationship Specialty Start Date End Date Mackenzie Estrada MD [address] [place] [address] PCP - General Family Medicine 07/10/20 Casper Magaña, JENNIFER [address] [place] [address] Registered Nurse Family Medicine 01/18/25 01/18/25 Ruth Ann Price 02/19/25 02/19/25 Ruth Ann Price 02/19/25 02/28/25 Ruth Ann Price 03/29/25 04/03/25 Hemalatha Pretty Risk Consulting Treasury DirectorHeavy Duty Truck Mechanic 01/02/25 documented as of this encounter
--- OUTSIDE RECORDS SUMMARY | 2025-05-07 16:10 | XMS_ITS | Encounter Summary ---
Author Organization [employer] Address 75 [facility] 7t [place] [address] Care Team Providers Care Shipping Order Clerk Name Role Phone Mackenzie Estrada MD Primary Care Provider [phone] Casper Magaña RN Unavailable Ruth Ann Price Unavailable Unavailable Ruth Ann Price Unavailable Ruth Ann Price Unavailable Reason for Visit * Reason Comments Med Refill Encounter Details Date Type Department Care Team ([facility] Contact Info) Description 08/25/2022 Refill [facility] MEDICINE 230 [place] [address] Mackenzie Estarda MD 230 [place] [address] Pain in both hands Social History Tobacco [...] Upcoming Encounters Date Type Department Care Team ([facility] Contact Info) Description 05/14/2025 9:45 AM EDT Office Visit [address] [address] 06/07/2025 3:45 PM EST Office Visit [address] [address] Mackenzie Estrada MD [address] [place] [address] documented as of this encounter Visit Diagnoses Diagnosis Pain in both hands documented in this encounter Care Teams Shipping Order Clerk Relationship Specialty Start Date End Date Mackenzie Estrada MD [address] [place] [address] [phone] PCP - General Family Medicine 07/10/20 Casper Magaña, RN [address] [place] [address] Registered Nurse Family Medicine 01/18/25 01/18/25 Ruth Ann Price 02/19/25 02/19/25 Ruth Ann Price 02/19/25 02/28/25 Ruth Ann Price 03/29/25 04/03/25 Hemalatha Pretty Rubber Thread SpoolerUrban Planner 01/02/25 documented as of this encounter
== END 2025-05-07 14:03 | disposition home or self-care (01) ==
LOC: HO.HGS 13:12
PROVIDERS: PCP General Practice; Referring Provider General Practice; Visit Provider Surgery
DX: L72.0 Epidermal cyst (principal)
CPT/HCPCS: 99204

== ENCOUNTER → 2025-05-07 13:11 | Outpatient (BNVA) | payer MEDICAID, SELFPAY | PROVIDERS: PCP General Practice; Visit Provider Surgery | DX: M25.522 Pain in left elbow (principal); L72.0 Epidermal cyst | CPT/HCPCS: 99202 ==

== ENCOUNTER 2025-05-14 12:09 | Emergency (ER) | payer MEDICAID, SELFPAY ==
--- NOTE | ~2025-05-14 | XR_ITS ---
EXAMINATION: XR CHEST CLINICAL INFORMATION: chest pain COMPARISON: 11/09/2024 and June 08, 2024 TECHNIQUE: 2 views of the chest were obtained. FINDINGS: No significant abnormality is noted involving the heart, lungs, mediastinum, bony thorax or soft tissues. XR/XR chest 2V IMPRESSION: No acute disease. Electronically signed by: Hayden Jacobson MD 05/14/2025 01:28 PM EDT
--- OUTSIDE RECORDS SUMMARY | 2025-05-14 09:45 | XMS_ITS | Encounter Summary ---
Author Organization [employer] Address [address] [facility] [address] [place] [address] Care Team Providers Care Manager Recovery Name Role Phone Mackenzie Estrada MD Primary Care Provider [phone] Encounter Details Date Type Department Care Team (Late st Contact Info) Description 05/14/2025 9:45 AM EDT Office Visit [facility] [address] [place] [address] Sisi Kennedy FNP [address] [place], [place] [phone] Rheumatoid arthritis involving multiple sites with positive [...] History: Associated Diagnosis: Rheumatoid Arthritis Following with [facility] [place] Rheumatology, also with plan for surgical removal of nodules with [facility] [place] Surgery team (elbow) Per PCP Note: RF++[id number]++ [...] of chest pain at night relieved by [facility] Long-term current use of opiate analgesic Overview Medication: Percocet 7.5/325mg Q6H PRN Indication: Rheumatoid arthritis Last FOOD PREPARATION SUPERVISOR Agreement: 05/14/25 Tier: II (Q3 months visits), [...] Sarcoid...) Rheumatoid arthritis involving multiple sites (CMS/HCC) ([facility]) - Primary Overview - Following with [facility] [place] Rheumatology: Dr. Corley Current Assessment & Plan [...] Samano RN - 05/14/2025 9:45 AM EDT FOOD PREPARATION SUPERVISOR chief technician: PDMP reviewed today. Last fill date: 04/18/25 Percocet 7.5mg count was 33, anticipated 7 to be remaining. UTOX completed. Positive for BZO, OXY & THC Negative for AMP, BAR, BUP, ANKUSH, FTY, MDMA, MET, MOP, MTD, PCP, TCA. UTOX as expected. FOOD PREPARATION SUPERVISOR Agreement reviewed and signed. BPI updated today. Pain severity score of 10, activity interference score of 9. Previous BPI completed 12/11/24 with pain severity score of 10, activity interference score of 9. Will update PCP with BPI scoring. documented in this encounter Miscellaneous Notes * Assessment & Plan Note - FARHEEN Ng - 05/14/2025 1:21 PM EDTAssociated Problem(s): NSTEMI (non-ST elevated myocardial infarction) ([facility]) - Proceed to Walk in Center now [...] Problem(s): Rheumatoid arthritis involving multiple sites (CMS/HCC) ([facility]) Actemra discontinued 03/08/25. Currently prescribed prednisone 20mg [...] Care Team (Late st Contact Info) Description 05/16/2025 10:30 AM EDT Office Visit [facility] [address] [place] [address] Aura Vu NP [address] [place] [address] 06/07/2025 3:45 PM EST Office Visit [facility] [address] [place] [phone] Mackenzie Estrada MD [address] [place] [address] 07/09/2025 9:45 AM EST Office Visit [address] [address] documented as of this encounter Goals Goal Patient Goal Type Associated Problems Recent Progress Patient-Stated? Author Quit using tobacco (cigarettes, smokeless, etc) Tobacco Use No Corey Lin PharmD documented as of this encounter Procedures Procedure Name Priority Date/Time Associated Diagnosis Comments POCT GALLO-14 URINE DRUG SCREEN Routine 05/14/2025 9:27 AM EDT Rheumatoid arthritis involving multiple sites with positive rheumatoid factor ([facility]) ([facility]) Long-term current use of opiate analgesic documented [...] Unknown 05/14/2025 9:27 AM EDT Sisi Kennedy MECHANICAL SERVICE TECHNICIAN POINT OF CARE TEST ENTER/EDIT ORDERABLES Edited Result - Final documented in this encounter Visit Diagnoses Diagnosis Rheumatoid arthritis involving multiple sites with positive rheumatoid factor ([facility]) ([facility])- Primary Long-term current use of opiate analgesic Encounter for long-term (current) use of other medications NSTEMI (non-ST elevated myocardial infarction) ([facility]) Acute myocardial infarction, subendocardial infarction, episode of care unspecified documented in this encounter Additional Health Concerns Assessment Noted Time PHQ-9 Depression Total Score: 6 04/03/20 25 11:40 AM EDT documented as of this encounter Care Teams Manager Recovery Relationship Specialty Start Date End Date Mackenzie Estrada MD [address] [place] [address] PCP - General Family Medicine 12/10/20 Hemalatha Pretty Waste ExaminerSafety Manager 01/02/25 documented as of this encounter
--- NOTE | 2025-05-14 12:17 | ECG_ITS ---
Test Reason : cp Blood Pressure : */* mmHG Vent. Rate : 62 BPM Atrial Rate : 62 BPM P-R Int : 176 ms QRS Dur : 104 ms QT Int : 414 ms P-R-T Axes : 53 -55 62 degrees QTcB Int : 420 ms Normal sinus rhythm Left anterior fascicular block Moderate voltage criteria for LVH, may be normal variant ( R in aVL , Remy product ) Abnormal ECG When compared with ECG of 18-Feb-2025 08:36, No significant change was found Referred By: Generic ED Physician Electronically Signed By: Ruddy Larios
[2025-05-14 12:31] VITALS: BP 173/83; PULSE 65; RESP 16; TEMP 36.1; O2SAT 97; BMI 34.5
--- NOTE | 2025-05-14 12:31 | ED.GENADULT ---
HPI - General Adult General Chief complaint: Chest Pain Stated complaint: Chest pain Related Data Home Medications ?Medication ?Instructions ?Recorded ?Confirmed alprazolam 1 mg tablet 1 mg PO BEDTIME PRN Anxiety 12/10/22 05/07/25 albuterol sulfate 90 mcg/actuation 2 puff inhalation Q6H PRN Wheezing 02/20/24 05/07/25 aerosol inhaler gabapentin 400 mg capsule 400 mg PO TID 04/23/24 05/07/25 trazodone 150 mg tablet 150 mg PO BEDTIME PRN anxiety/sleep 04/23/24 05/07/25 cholecalciferol (vitamin D3) 25 25 mcg PO DAILY 05/27/24 05/07/25 mcg (1,000 unit) capsule (Vitamin D3) risperidone 1 mg tablet 0.5 mg PO DAILY PRN 05/27/24 05/07/25 anxiety/agitation/paranoia apixaban 5 mg tablet (Eliquis) 5 mg PO BID 06/12/24 05/07/25 atorvastatin 80 mg tablet 80 mg PO DAILY 06/12/24 05/07/25 ferrous sulfate 325 mg (65 mg 325 mg PO QAM 06/12/24 05/07/25 iron) tablet sertraline 50 mg tablet (Zoloft) 75 mg PO DAILY 06/12/24 05/07/25 umeclidinium 62.5 mcg/actuation 1 inh inhalation DAILY 06/12/24 05/07/25 blister powder for inhalation (Incruse Ellipta) ursodiol 250 mg tablet 250 mg PO BID 06/12/24 05/07/25 cetirizine 10 mg tablet 10 mg PO QAM neuropathic pain 08/27/24 05/07/25 clopidogrel 75 mg tablet 75 mg PO DAILY 08/27/24 05/07/25 famotidine 20 mg tablet 20 mg PO BID 08/27/24 05/07/25 metoprolol succinate 50 mg 50 mg PO DAILY 08/27/24 05/07/25 tablet,extended release 24 hr nicotine 14 mg/24 hr daily 1 patch topical QAM 08/27/24 05/07/25 transdermal patch Previous Rx's ?Medication ?Instructions ?Recorded ascorbic acid (vitamin C) 500 mg 1,000 mg (2 x 500 mg) PO QAM #180 05/28/24 tablet (Vitamin C) tabs vitamin A 3,000 mcg (10,000 unit) 1 cap PO QAM #90 caps 11/29/24 capsule acetaminophen 500 mg tablet 1,000 mg (2 x 500 mg) PO Q8H PRN 01/17/25 (Tylenol Extra Strength) pain #30 tabs docusate sodium 100 mg capsule 100 mg PO BID #60 caps 02/28/25 sulfamethoxazole 400 1 tab PO DAILY #30 tabs 03/08/25 mg-trimethoprim 80 mg tablet (Bactrim) cyclobenzaprine 5 mg tablet 5 mg PO TID PRN muscle spasm 7 03/28/25 days #21 tabs prednisone 5 mg tablet 5 mg PO DAILY #170 tabs 04/17/25 Allergies Allergy/AdvReac Type Severity Reaction Status Date / Time almond (ALMONDS) Allergy Severe ANAPHYLAXIS Verified 05/14/25 12:33 adhesive tape (ADHESIVE TAPE) Allergy Intermediate RASH Verified 05/14/25 12:33 morphine (MORPHINE) Allergy Intermediate GI UPSET, Verified 05/14/25 12:33 difficulty breathing leflunomide AdvReac Intermediate twitching Verified 05/14/25 12:33 tramadol (TRAMADOL) AdvReac Unknown NAUSEA & Verified 05/14/25 12:33 VOMITING PMFSH Past Medical History Medical History PAD (peripheral artery disease) Skin lesion Anxiety Achilles tendinitis Superficial femoral artery occlusion Knee pain, left Depression Hx of peripheral pulmonary artery stenosis History of chemotherapy Cancer of heart Bone cancer Lung cancer Iron deficiency Seropositive rheumatoid arthritis Bleeding hemorrhoid Degeneration, intervertebral disc, lumbar Chronic GERD Degeneration of intervertebral disc at C4-C5 level Osteoarthritis of spine with radiculopathy, lumbar region Fibromyalgia Esophageal dysphagia Vitamin D deficiency Systemic lupus erythematosus Seropositive rheumatoid arthritis Rheumatoid arthritis involving multiple sites Gallstones Stress incontinence in female Nocturia Urgency-frequency syndrome De Quervain's disease (tenosynovitis) Depressive disorder Acute arthritis Hodgkin disease Surgical History History of heart surgery History of surgical removal of skin lesion (~07/13/23) History of angioplasty of vein History of biopsy H/O tubal ligation Hx of endoscopy Hx laparoscopic cholecystectomy Hx of colonoscopy History of esophagogastroduodenoscopy (EGD) History of repair of inguinal hernia History of lymph node dissection of left axilla Family History Family History Maternal Grandmother Ovarian cancer Social History Social History Household Members: Significant Other Housing: Apartment Are you a primary wound care nurse to a significant other at home: No Alcohol intake: never Comment: son at bedside Patient Tobacco Use Status: Never used Tobacco Tobacco use type: Cigarette Cigarette Packs Per Day: 1 Cigarettes Per Day: 20.0 Substance Use Type: Marijuana Advance Directives Date on File: 02/24/24 service: No Current occupational status: disabled 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 Patient is a 49y/o Czech speaking female with pmhx of NSTEMI, PAD, fibromyalgia, DVT, Hodgkins presenting from [facility] in with chest pain, nausea and dizziness since yesterday. Pain to left upper chest. Has been using her NTG at home, was also given NTG and ASA at the walk in. Plan: EKG, labs, CXR Patient left the emergency department before myself or any of the other clinicians could review or explain physical exam findings, test results, need or lack there of for additional testing, treatment options, or a treatment plan. Medical Decision Making Lab Data 05/14/25 13:34 05/14/25 13:34 Labs: Lab Results 05/14/25 Range/Units 13:34 WBC 5.1 (4.8-10.8) X10*3/uL RBC 4.32 (4.20-5.50) X10*6/uL Hgb 13.3 (12.0-16.0) g/dl Hct 40.0 (37.0-47.0) % MCV 92.6 (80.0-98.0) fL MCH 30.8 (27.0-33.0) pg MCHC 33.3 (31.0-35.0) g/dl RDW 14.3 (11.0-16.0) % Plt Count 220 (160-400) X10*3/uL MPV 10.1 (9.4-12.3) fL Immature Gran % (Auto) 0.4 (0.0-0.4) % Neut % (Auto) 45.6 (45-73) % Lymph % (Auto) 47.1 H (20-40) % Juncos % (Auto) 5.3 (2-11) % Eos % (Auto) 1.2 (0-4) % Baso % (Auto) 0.4 (0-2) % Lymph # (Auto) 2.4 (1.2-4.9) X10*3/uL Jun[place] # (Auto) 0.3 (0.1-1.2) X10*3/uL Eos # (Auto) 0.1 (0.0-0.4) X10*3/uL Baso # (Auto) 0.0 (0.0-0.2) X10*3/uL Abs Immat Gran (auto) 0.02 (0.00-0.03) X10*3/uL Absolute Neuts (auto) 2.4 (2.0-8.3) x10*3/uL Absolute Nucleated RBC 0.000 (0.0-0.012) X10*3/uL Nucleated RBC % (auto) 0.0 (0.0-0.2) /100WBC PT 11.4 (10.9-12.4) SEC INR 1.0 (0.9-1.1) Sodium 140 (135-145) mmol/L Potassium 3.9 (3.3-5.1) mmol/L Chloride 107 (96-108) mmol/L Carbon Dioxide 24 (22-29) mmol/L Anion Gap 13 (12-20) BUN 14 (9-16) mg/dL Creatinine 0.62 (0.5-1.4) mg/dL Estim Creat Clear Calc 112.5 Estimated GFR > 60 Random Glucose 91 (60-115) mg/dL Calcium 9.6 (8.4-10.2) mg/dL Total Bilirubin 0.5 (0.0-1.0) mg/dL AST 26 (5-31) U/L ALT 21 (0-31) U/L Alkaline Phosphatase 80 (39-117) U/L Troponin I High Sens < 2.7 (<3.5-17.0) ng/L NT-Pro-B Natriuret Pep 188.9 (<300) pg/mL Total Protein 9.1 H (6.5-8.0) g/dL Albumin 4.7 (3.5-5.0) g/dL Discharge Plan Discharge Clinical Impression: Chest pain Patient Disposition: Left W/O Completing Treatment Prescriptions: No Action ascorbic acid (vitamin C) [Vitamin C] 500 mg tablet 1,000 mg PO QAM Qty: 180 2RF vitamin A 3,000 mcg (10,000 unit) capsule 1 cap PO QAM Qty: 90 1RF docusate sodium 100 mg capsule 100 mg PO BID Qty: 60 3RF atorvastatin 80 mg tablet 80 mg PO DAILY ferrous sulfate 325 mg (65 mg iron) tablet 325 mg PO QAM ursodiol 250 mg tablet 250 mg PO BID sertraline [Zoloft] 50 mg tablet 75 mg PO DAILY Eliquis 5 mg tablet 5 mg PO BID Incruse Ellipta 62.5 mcg/actuation blister with device 1 inh INHALATION DAILY acetaminophen [Tylenol Extra Strength] 500 mg tablet 1,000 mg PO Q8H PRN (Reason: pain) Qty: 30 0RF albuterol sulfate 90 mcg/actuation Hfa Aerosol Inhaler 2 puff INHALATION Q6H PRN (Reason: Wheezing) risperidone 1 mg tablet 0.5 mg PO DAILY PRN (Reason: anxiety/agitation/paranoia) cholecalciferol (vitamin D3) [Vitamin D3] 25 mcg (1,000 unit) capsule 25 mcg PO DAILY cyclobenzaprine 5 mg tablet 5 mg PO TID PRN (Reason: muscle spasm) 7 Days Qty: 21 0RF alprazolam 1 mg tablet 1 mg PO BEDTIME PRN (Reason: Anxiety) trazodone 150 mg tablet 150 mg PO BEDTIME PRN (Reason: anxiety/sleep) gabapentin 400 mg capsule 400 mg PO TID cetirizine 10 mg tablet 10 mg PO QAM clopidogrel 75 mg tablet 75 mg PO DAILY famotidine 20 mg tablet 20 mg PO BID metoprolol succinate 50 mg tablet extended release 24 hr 50 mg PO DAILY nicotine 14 mg/24 hr patch 24 hour 1 patch topical QAM sulfamethoxazole-trimethoprim [Bactrim] 400-80 mg tablet 1 tab PO DAILY Qty: 30 4RF prednisone 5 mg tablet 5 mg PO DAILY Qty: 170 0RF Rx Instructions: Take 15mg daily for 4 weeks then 10mg daily for 4 weeks then 5g daily for 4 weeks then stop Discharge Date/Time: 05/14/25 20:36
[2025-05-14 12:36] VITALS: BP 143/90; PULSE 77
--- OUTSIDE RECORDS SUMMARY | 2025-05-14 13:00 | XMS_ITS | Encounter Summary ---
Author Organization [employer] Address [address] [place] [address] Care Team Providers Care Food Demonstrator Name Role Phone Mackenzie Estrada MD Primary Care Provider [phone] Encounter Details Date Type Department Care Team (Late st Contact Info) Description 05/14/2025 1:00 PM EDT Office Visit [facility] [address] [place], [place] [phone] Raoul Hills MD [address] [place], [place] [phone] Precordial pain (Primary Dx); Chest pain, unspecified type Social History Tobacco Use Types [...] the past 12 months, has t he [employer], gas, oil or water [employer] threatened to shut off services in your [...] Sign Reading Time Taken Comments Blood Pressure 133/83 05/14/2025 11:53 AM EDT Pulse 74 05/14/2025 11:21 AM EDT Temperature 37.3 C (99.1 F) 05/14/2025 11:21 AM EDT Respiratory Rate - - Oxygen Saturation - - Inhaled Oxygen Concentration - - Weight - - Height 157.5 cm (5' 2 ) 05/14/2025 11:21 AM EDT Body Mass Index - - documented in this encounter Progress Notes * Eva Christopher RN - 05/14/2025 1:00 PM EDT Assessment: Patient presents to Walk- In Center c/o left sided chest pain, nausea, shortness of breath dizziness. Symptoms have been present for last night. Symptoms are episodic. Symptoms are relieved by nitro. Patient is taking (treatment/meds) nitro. Recent ED visit or hospitalization: No. VS as follows (if applicable): Temp 99.1 orally HR 74 Resp 16 BP 150/97 left Arm; Device: Automatic Cuff Size: regular O2 sat 98 % on room air Pain level: 8, Location: left side chest In Office Testing EKG done in office 324 mg of ASA given and nitroglycerin x1 Plan of care: Report to Dr Stoner Provider evaluation: Yes Patient seen by provider and determined to send to Ed for further evaluation, history of NSTEMi andDVT Call for transport to ED, [facility] [place] Eva Christopher RN * Raoul Reed MD - 05/14/2025 1:00 PM EDT Subjective Patient ID: Ginette Lacy is a 49 y.o. female who presents for No chief complaint on file.. Pt evaluated by Nurse in triage c/o left sided chest pain, nausea, shortness of breath dizziness. Symptoms have been present for last night. Symptoms are episodic. Symptoms are relieved by nitro. Patient is taking (treatment/meds) nitro. Review of Systems Constitutional: Negative for fever. HENT: Negative for sore throat. Respiratory: Negative for cough and shortness of breath. Cardiovascular: Positive for chest pain. Gastrointestinal: Negative for abdominal pain. Neurological: Negative for headaches. Objective Physical Exam Vitals reviewed. Constitutional: Appearance: Normal appearance. HENT: Head: Normocephalic and atraumatic. Right Ear: External ear normal. Left Ear: External ear normal. Nose: Nose normal. Mouth/Throat: Mouth: Mucous membranes are moist. Eyes: Conjunctiva/sclera: Conjunctivae normal. Cardiovascular: Rate and Rhythm: Normal rate and regular rhythm. Pulmonary: Effort: Pulmonary effort is normal. Breath sounds: Normal breath sounds. Skin: General: Skin is warm. Neurological: Mental Status: She is alert. Mental status is at baseline. Assessment/Plan Problem List Items Addressed This Visit Cardiac and Vasculature Precordial pain - Primary Pt here with c/o left sided chest pain that responded to NTG at home On exam P elevated EKG done showed no acute changes when compared with previous She was given 324 mg of ASA given and nitroglycerin x1 Given her persistent chest pain that improved with NTG and a previous history of NSTMI and DVT decision was made to transport to ER. Relevant Medications nitroglycerin (Nitrostat) SL tablet 0.4 mg aspirin chewable tablet 324 mg (Completed) Other Visit Diagnoses Chest pain, unspecified type Relevant Medications nitroglycerin (Nitrostat) SL tablet 0.4 mg aspirin chewable tablet 324 mg (Completed) documented in this encounter Miscellaneous Notes * Assessment & Plan Note - Raoul Reed MD - 05/14/2025 1:16 PM EDT Associated Problem(s): Precordial pain Pt here with c/o left sided chest pain that responded to NTG at home On exam P elevated EKG done showed no acute changes when compared with previous She was given 324 mg of ASA given and nitroglycerin x1 Given her persistent chest pain that improved with NTG and a previous history of NSTMI and DVT decision was made to transport to ER. documented in this encounter Plan of Treatment Upcoming Encounters Date Type Department Care Team (Late st Contact Info) Description 05/16/2025 10:30 AM EDT Office Visit [facility] [address] [place] [phone] Aura Vu NP [address] [place] [address] 06/07/2025 3:45 PM EST Office Visit [address] [address] Mackenzie Estrada MD [address] [place] [address] 07/09/2025 9:45 AM EST Office Visit [address] [address] documented as of this encounter Goals Goal Patient Goal Type Associated Problems Recent Progress Patient-Stated? Author Quit using tobacco (cigarettes, smokeless, etc) Tobacco Use No Corey Lin, Bailey documented as of this encounter Visit Diagnoses Diagnosis Precordial pain- Primary Chest pain, unspecified type documented in this encounter Administered Medications Active Administered Medications - up to 3 most recent administrations Medication Order MAR Action Action Date Dose Rate Site nitroglycerin (Nitrostat) SL tablet 0.4 mg 0.4 mg, Sublingual, Every 5 min PRN, chest pain, Starting on Tue05/14/25 at 1154, May administer up to 3 doses per episode.Indications:Chest pain, unspecified type Given 05/14/2025 11:30 AM EDT 0.4 mg Inactive Administered Medications - up to 3 most recent administrations Medication Order MAR Action Action Date Dose Rate Site aspirin chewable tablet 324 mg 324 mg, Oral, Once, On Tue05/14/25 at 1200, For 1 doseIndications:Chest pain, unspecified type Given 05/14/2025 12:00 PM EDT 324 mg documented in this encounter Additional Health Concerns Assessment Noted Time PHQ-9 Depression Total Score: 04/03/20 11:40 AM EDT documented as of this encounter Care Teams Food Demonstrator Relationship Specialty Start Date End Date Mackenzie Estrada MD [address] [place] [phone] PCP - General Family Medicine 07/10/20 Hemalatha Pretty Student Ministries DirectorArea Field Manager 01/02/25 documented as of this encounter
[2025-05-14 13:39] LABS: MANUAL DIFF FLAG NO
[2025-05-14 13:43] LABS: Hematocrit 40.0 % (37.0-47.0); Hemoglobin 13.3 g/dl (12.0-16.0); Imm Gran Abs Auto 0.02 X10*3/uL (0.00-0.03); Imm Gran Pct Auto 0.4 % (0.0-0.4); Lymphocytes Absolute Auto 2.4 X10*3/uL (1.2-4.9); Mean Corpuscular HGB Conc 33.3 g/dl (31.0-35.0); Mean Corpuscular Hemoglobin 30.8 pg (27.0-33.0); Mean Corpuscular Volume 92.6 fL (80.0-98.0); NRBC Abs Auto 0.000 X10*3/uL (0.0-0.012); NRBC Pct Auto 0.0 /100WBC (0.0-0.2); Platelet Count 220 X10*3/uL (160-400); Red Blood Count 4.32 X10*6/uL (4.20-5.50); White Blood Count 5.1 X10*3/uL (4.8-10.8)
[2025-05-14 13:50] LABS: INTERNATIONAL NORM RATIO 1.0 (0.9-1.1); Prothrombin Time 11.4 SEC (10.9-12.4)
[2025-05-14 14:02] LABS: Alanine Aminotransferase 21 U/L (0-31); Albumin Level 4.7 g/dL (3.5-5.0); Alkaline Phosphatase 80 U/L (39-117); Anion Gap 13 (12-20); Aspartate Amino Transferase 26 U/L (5-31); Blood Urea Nitrogen 14 mg/dL (9-16); Calcium 9.6 mg/dL (8.4-10.2); Carbon Dioxide 24 mmol/L (22-29); Chloride 107 mmol/L (96-108); Creatinine Clr Calc Pharmacy 112.5; Estimated Glomerular Filt Rate > 60; Potassium 3.9 mmol/L (3.3-5.1); Sodium 140 mmol/L (135-145); Total Protein 9.1 g/dL (6.5-8.0)
[2025-05-14 14:11] LABS: NT Pro B Type Natriuretic Pept 188.9 pg/mL (<300)
[2025-05-14 19:05] LABS: Troponin-I High Sensitivity < 2.7 ng/L (<3.5-17.0)
--- OUTSIDE RECORDS SUMMARY | 2025-05-14 20:42 | XMS_ITS | Encounter Summary ---
Author Organization [employer] Address [address] [facility] [address] [address] 7t [place] [address] Care Team Providers Care Superior Court Clerk Name Role Phone Mackenzie Estrada MD Primary Care Provider [phone] Ruth Ann Price Unavailable Unavailable Ruth Ann Price Unavailable Ruth Ann Price Unavailable Reason for Visit * Reason Comments Med Refill Encounter Details Date Type Department Care Team ([facility] st Contact Info) Description 01/24/2025 Refill [facility] 230 [place] [address] Kat Yo MD 230 [place] [address] Rheumatoid arthritis involving right hand with positive [...] Description 05/16/2025 10:30 AM EDT Office Visit [address] [address] Aura Vu NP [address] [place] [address] 06/07/2025 3:45 PM EST Office Visit [address] [address] Mackenzie Estrada MD [address] [place] [address] 07/09/2025 9:45 AM EST Office Visit [address] [address] documented as of this encounter Goals Goal Patient Goal Type Associated Problems Recent Progress Patient-Stated? 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 (CMS/[facility]) ([facility]) Inflammatory arthritis Unspecified inflammatory polyarthropathy documented in this encounter Additional Health Concerns Assessment Noted Time PHQ-9 Depression Total Score: 2 04/30/20 24 10:41 AM EDT documented as of this encounter Care Teams Superior Court Clerk Relationship Specialty Start Date End Date Mackenzie Estrada MD [address] [place] [address] PCP - General Family Medicine 07/10/20 Ruth Ann Price 02/19/25 02/19/25 Ruth Ann Price 02/19/25 02/28/25 Ruth Ann Price 03/29/25 04/03/25 Hemalatha Pretty Welder Fitter ApprenticeAssistant Professor Of Anthropology 01/02/25 documented as of this encounter
--- OUTSIDE RECORDS SUMMARY | 2025-05-14 20:42 | XMS_ITS | Encounter Summary ---
Author Organization [employer] Address [address] [facility] 7t [place] [address] Care Team Providers Care International Account Executive Name Role Phone Mackenzie Estraad MD Primary Care Provider [phone] Casper Magaña RN Unavailable [phone] Ruth Ann Price Unavailable Unavailable Ruth Ann Price Unavailable Ruth Ann Price Unavailable Reason for Referral * Imaging (Routine) - Closed Specialty Diagnoses / Procedures Referred By Contac t Referred To Contact Radiology Diagnoses Abnormal ultrasound of pelvis Procedures MR Pelvis w/ and w/o Contrast Mackenzie Estrada MD 230 [place] [address] Phone: tel: fax: [address] Phone: tel: fax: Referral ID Status Reason Start Date Expiration Date Visits Re quested Visits Authorized [id number] Closed 10/31/2023 10/30/2024 1 1 Encounter Details Date Type Department Care Team (Late st Contact Info) Description 10/31/2023 Orders Only [facility] 230 [place], [place] [phone] Mackenzie Estrada MD 230 [place], [place] [phone] Abnormal ultrasound of pelvis (Primary Dx) Social [...] which I need to talk to her safety assistant about. Thank you! documented in this encounter Plan of Treatment Upcoming Encounters Date Type Department Care Team (Late st Contact Info) Description 05/16/2025 10:30 AM EDT Office Visit [facility] [address] [place] [address] [phone] Aura Vu NP 230 [place] [address] 06/07/2025 3:45 PM EST Office Visit [address] [phone] Mackenzie Estrada MD 230 [place], [place] [phone] 07/09/2025 9:45 AM EST Office Visit [address] [phone] documented as of this encounter Goals Goal Patient Goal Type Associated Problems Recent Progress Patient-Stated? Author Quit using tobacco (cigarettes, smokeless, etc) Tobacco Use Corey Cornell, Bailey documented as of this encounter Procedures Procedure Name Priority Date/Time Associated Diagnosis Comments MR PELVIS W AND WO CONTRAST Routine 11/25/2023 3:05 PM EDT Abnormal ultrasound of pelvis documented in this encounter Results * MR Pelvis w/ and w/o Contrast (11/25/2023 3:05 PM EDT) Anatomical Region Laterality Modality Body, Pelvis Magnetic Resonan ce 11/25/2023 3:05 PM EDT Narrative 12/07/2023 9:11 AM EDT [address] [address] Magnetic Resonance Report Signed Patient: Ginette Arceo MR #: [id number] : 1975 Acct:[id number] Age/Sex: 48 / F ADM Date: 11/25/23 Loc: HO.MRI Attending Dr: Mackenzie Estrada MD Ordering Physician: Mackenzie Estrada Date of Service: 11/25/23 Procedure(s): MR pelvis wo/w con Accession Number(s): [id number] cc: SeanMackenzie EXAMINATION: MR PELVIS WITHOUT AND WITH CONTRAST [...] measures 7.8 x 3.6 x 4.3 cm (qukykh-fc-reqptt x AP x transverse dimension). The junctional [...] in OV> 12/07/23 0907 DD/ 1505 TD/TT: Gas Controller: PD Procedure Note Donotuseinterpreter, Image - 12/07/[address] [address] Magnetic Resonance Report Signed Patient: Ginette Arceo #: [id number] : 1975Acct:[id number] Age/Sex: 48 / FADM Date: 11/25/23 Loc: .MRI Attending Dr: Mackenzie Estrada MD Ordering Physician: Mackenzie Estrada Date of Service: 11/25/23 Procedure(s): MR pelvis wo/w con Accession Number(s): [id number] cc: Mackenzie Estrada EXAMINATION: MR PELVIS WITHOUT [...] measures 7.8 x 3.6 x 4.3 cm (kokkdx-rv-jseqbd x AP x transverse dimension). The junctional [...] in OV> 12/07/23 0907 DD/ 1505 TD/TT: Gas Controller: PD Mackenzie Estrada MD IMG MRI PROCEDURES Final Resul t documented in this encounter Visit Diagnoses Diagnosis Abnormal ultrasound of pelvis- Primary documented in this encounter Care Teams International Account Executive Relationship Specialty Start Date End Date Mackenzie Estrada MD [address] [place] [address] PCP - General Family Medicine 07/10/20 Casper Magaña, JENNIFER [address] [place] [address] Registered Nurse Family Medicine 01/18/25 01/18/25 Ruth Ann Price 02/19/25 02/19/25 Ruth Ann Price 02/19/25 02/28/25 Ruth Ann Price 03/29/25 04/03/25 Hemalatha Pretty Operational Risk AnalystTool Repairer Bench 01/02/25 documented as of this encounter
--- OUTSIDE RECORDS SUMMARY | 2025-05-14 20:42 | XMS_ITS | Clinical Summary ---
Author Organization [facility] Address [address] [place] [address] Care Team Providers Care Stations Superintendent Name Role Phone Sanjay Cruz MD Primary Care [facility] Surgical History Surgery Date Site/Laterality Comments OTHER SURGICAL HISTORY 05/12/2020 Right PROCEDURE: AL BX/EXC LYMPH NODE OPEN SUPERFICIAL; COMMENT: Axillary Lymph Node biopsy- Benign Lymphoid Tissue OTHER SURGICAL HISTORY 12/19/2019 Right PROCEDURE: AL BX/EXC LYMPH NODE NEEDLE SUPERFICIAL; COMMENT: Axillary Lymph node -results were non daignostic Medical History Medical History Date Comments Anxiety DX:Anxiety Migraine DX:Migraine History of DVT (deep vein thrombosis) 05/23/2020 DX:History of DVT (deep vein thrombosis); COMMENT: 01/2005 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 0 DX:intermediate current use of anticoagulant Acute deep vein thrombosis ( DVT) of brachial vein of right upper extremity ([facility] V24, [facility] V28) 05/09/2020 DX:Acute deep vein thrombos is (DVT) of brachial vein of right upper extremity (HCC) Axillary lymphadenopathy 05/09/2020 DX:Axil harvinder lymphadenopathy Gastroesophageal reflux disease 05/09/2020 DX:Gastroesophageal reflux disease Personal history of Hodgkin lymphoma 05/09/2020 DX:Personal history of Hodgkin lymphoma Recurrent major depressive d isorder in remission ([facility] V24) 05/09/2020 DX:Recurrent major depressiv e disorder in remission (HCC) Rheumatoid arthritis involvi ng multiple sites (CMS/[facility] V24, [facility] V28) 05/09/2020 DX:Rheumatoid arthritis invo lving multiple sites (HCC) Hodgkin's disease, nodular s clerosis, of lymph nodes of multiple sites (CMS/[facility] V24, [facility]/HCC V28) DX:Hodgkin's disease, nodul ar sclerosis, [...] age to complete this topic Care Teams Stations Superintendent Relationship Specialty Start Date End Date Subramonia-Sanjay Espana MD [address] [place] [phone] PCP - General Internal Medicine 04/09/20
--- OUTSIDE RECORDS SUMMARY | 2025-05-14 20:42 | XMS_ITS | Encounter Summary ---
Author Organization [employer] Address [address] [facility] 7t [place] [address] Care Team Providers Care Mail Order Sorter Name Role Phone Macknezie Estrada MD Primary Care Provider [phone] Ruth Ann Price Unavailable Unavailable Ruth Ann Price Unavailable Ruth Ann Price Unavailable Reason for Visit * Reason Comments Med Refill Encounter Details Date Type Department Care Team ([facility] st Contact Info) Description 01/24/2025 Refill [facility] 230 [place] [address] Ebony Daigle MD 230 [place], [place] [phone] Rheumatoid arthritis involving multiple sites with positive rheumatoid factor ([facility]) Social History Tobacco Use Types Packs/Day Years [...] Description 05/16/2025 10:30 AM EDT Office Visit [address] [address] Aura Vu NP [address] [place] [address] 06/07/2025 3:45 PM EST Office Visit [address] [address] Mackenzie Estrada MD [address] [place] [address] 07/09/2025 9:45 AM EST Office Visit [address] [address] documented as of this encounter Goals Goal Patient Goal Type Associated Problems Recent Progress Patient-Stated? Author Quit using tobacco (cigarettes, smokeless, etc) Tobacco Use No Corey Lin, KelechiD documented as of this encounter Visit Diagnoses Diagnosis Rheumatoid arthritis involving multiple sites with positive rheumatoid factor (CMS/HCC) (HCC) documented in this encounter Additional Health Concerns Assessment Noted Time PHQ-9 Depression Total Score: 2 04/30/20 24 10:41 AM EDT documented as of this encounter Care Teams Mail Order Sorter Relationship Specialty Start Date End Date Mackenzie Estrada MD [address] [place] [address] PCP - General Family Medicine 07/10/20 Ruth Ann Price 02/19/25 02/19/25 Ruth Ann Price 02/19/25 02/28/25 Ruth Ann Price 03/29/25 04/03/25 Hemalatha Pretty Mold ShakerDirector Of Staff Development 01/02/25 documented as of this encounter
--- OUTSIDE RECORDS SUMMARY | 2025-05-14 20:42 | XMS_ITS | Encounter Summary ---
Author Organization [employer] Address [address] [facility] 7t [place] [address] Care Team Providers Care Grinding Machine Operator Name Role Phone Mackenzie Estrada MD Primary Care Provider [phone] Casper Magaña RN Unavailable [phone] Ruth Ann Price Unavailable Unavailable Ruth Ann Price Unavailable Ruth Ann Price Unavailable Encounter Details Date Type Department Care Team (Late st Contact Info) Description 03/04/2023 Orders Only [facility] [address] [place] [address] Kat Yo MD 230 [place], [place] [phone] Social History Tobacco Use Types Packs/Day Years [...] Description 05/16/2025 10:30 AM EDT Office Visit [facility] [address] [place] [address] [phone] Aura Vu NP 230 [place], [place] [phone] 06/07/2025 3:45 PM EST Office Visit [address] [address] Mackenzie Estrada MD [address] [place] [address] 07/09/2025 9:45 AM EST Office Visit [address] [address] documented as of this encounter Visit Diagnoses Not on filedocumented in this encounter Care Teams Grinding Machine Operator Relationship Specialty Start Date End Date Mackenzie Estrada MD [address] [place] [address] [phone] PCP - General Family Medicine 07/10/20 Casper Magaña, JENNIFER [address] [place] [address] Registered Nurse Family Medicine 01/18/25 01/18/25 Ruth Ann Price 02/19/25 02/19/25 Ruth Ann Price 02/19/25 02/28/25 Ruth Ann Price 03/29/25 04/03/25 Hemalatha Pretty Automatic Teller Machine ServicerTrial Examiner 01/02/25 documented as of this encounter
--- OUTSIDE RECORDS SUMMARY | 2025-05-14 20:42 | XMS_ITS | Encounter Summary ---
Author Organization [employer] Address [address] [facility] 7t [place] [address] Care Team Providers Care Broiler Manager Name Role Phone Mackenzie Estrada MD Primary Care Provider [phone] Casper Magaña RN Unavailable Ruth Ann Price Unavailable Unavailable Ruth Ann Price Unavailable Ruth Ann Price Unavailable Reason for Visit * Reason Comments Med Refill Encounter Details Date Type Department Care Team (Late st Contact Info) Description 11/18/2023 Refill [facility] 230 [place] [address] Mackenzie Estrada MD 230 [place], [place] [phone] Pain in both hands Social History Tobacco [...] Description 05/16/2025 10:30 AM EDT Office Visit [address] [address] Aura Vu NP [address] [place] [address] 06/07/2025 3:45 PM EST Office Visit [address] [address] Mackenzie Estrada MD [address] [place] [address] 07/09/2025 9:45 AM EST Office Visit [address] [address] documented as of this encounter Goals Goal Patient Goal Type Associated Problems Recent Progress Patient-Stated? Author Quit using tobacco (cigarettes, smokeless, etc) Tobacco Use No Corey Lin, KelechiD documented as of this encounter Visit Diagnoses Diagnosis Pain in both hands documented in this encounter Care Teams Broiler Manager Relationship Specialty Start Date End Date Mackenzie Estrada MD [address] [place] [address] PCP - General Family Medicine 07/10/20 Casper Magaña, RN [address] [place] [address] [place] Conn [address] Registered Nurse Family Medicine 01/18/25 01/18/25 Ruth Ann Price 02/19/25 02/19/25 Ruth Ann Price 02/19/25 02/28/25 Ruth Ann Price 03/29/25 04/03/25 Hemalatha Pretty Air Tool OperatorCamera Supervisor 01/02/25 documented as of this encounter
--- OUTSIDE RECORDS SUMMARY | 2025-05-14 20:42 | XMS_ITS | Encounter Summary ---
Author Organization [employer] Address [address] [facility] [address] [address] 7t [place] [address] Care Team Providers Care Engineering Analyst Name Role Phone Mackenzie Estrada MD Primary Care Provider Casper Magaña RN Unavailable [phone] Ruth Ann Price Unavailable Unavailable Ruth Ann Price Unavailable Ruth Ann Price Unavailable Encounter Details Date Type Department Care Team (Late st Contact Info) Description 10/03/2023 Orders Only [facility] 230 [place] [address] Mackenzie Estrada MD 230 [place], [place] [phone] Bacterial vaginosis (Primary Dx) Social History Tobacco [...] Description 05/16/2025 10:30 AM EDT Office Visit [address] [address] Aura Vu NP [address] [place] [address] 06/07/2025 3:45 PM EST Office Visit [address] [address] Mackenzie Estrada MD [address] [place] [address] 07/09/2025 9:45 AM EST Office Visit [address] [address] documented as of this encounter Goals Goal Patient Goal Type Associated Problems Recent Progress Patient-Stated? Author Quit using tobacco (cigarettes, smokeless, etc) Tobacco Use Corey Cornell, PharmD documented as of this encounter Visit Diagnoses Diagnosis Bacterial vaginosis- Primary Unspecified vaginitis and vulvovaginitis documented in this encounter Care Teams Engineering Analyst Relationship Specialty Start Date End Date Mackenzie Estrada MD [address] [place] [address] PCP - General Family Medicine 07/10/20 Casper Magaña, RN [address] [place] [address] Registered Nurse Family Medicine 01/18/25 01/18/25 Ruth Ann Price 02/19/25 02/19/25 Ruth Ann Price 02/19/25 02/28/25 uRth Ann Price 03/29/25 04/03/25 Hemalatha Pretty Head Filter Tank Tender HelperGroundwater Consultant 01/02/25 documented as of this encounter
--- OUTSIDE RECORDS SUMMARY | 2025-05-14 20:42 | XMS_ITS | Encounter Summary ---
Author Organization [employer] Address 75 [facility] 7t [place] [address] Care Team Providers Care Special Makeup Fx Artist Instructor Name Role Phone Mackenzie Estrada MD Primary Care Provider [phone] Casper Magaña RN Unavailable [phone] Ruth Ann Price Unavailable Unavailable Ruth Ann Price Unavailable Ruth Ann Price Unavailable Reason for Visit * Reason Comments Med Refill Encounter Details Date Type Department Care Team ([facility] Contact Info) Description 12/10/2022 Refill [facility] 230 [place] [address] Mackenzie Estrada MD 230 [place] [address] Pain in both hands Social History Tobacco [...] Team ([facility] Contact Info) Description 05/16/2025 10:30 AM EDT Office Visit [address] [address] Aura Vu NP 230 [facility] [place] [address] 06/07/2025 3:45 PM EST Office Visit [address] [phone] Mackenzie Estrada MD [address] [place] [address] [phone] 07/09/2025 9:45 AM EST Office Visit [address] [address] documented as of this encounter Visit Diagnoses Diagnosis Pain in both hands documented in this encounter Care Teams Special Makeup Fx Artist Instructor Relationship Specialty Start Date End Date Mackenzie Estrada MD [address] [place] [address] [phone] PCP - General Family Medicine 07/10/20 Casper Magaña, RN [address] [place] [address] Registered Nurse Family Medicine 01/18/25 01/18/25 Ruth Ann Price 02/19/25 02/19/25 Ruth Ann Price 02/19/25 02/28/25 Ruth Ann Price 03/29/25 04/03/25 Hemalatha Pretty Necktie StitcherSystems Protection Technician 01/02/25 documented as of this encounter
--- OUTSIDE RECORDS SUMMARY | 2025-05-14 20:42 | XMS_ITS | Encounter Summary ---
Author Organization [employer] Address [address] [facility] [address] [address] 7t [place] [address] Care Team Providers Care Meat Cooler Name Role Phone Mackenzie Estrada MD Primary Care Provider [phone] Encounter Details Date Type Department Care Team (Latest Contact Info) Description 05/14/2025 Travel Social History Tobacco Use Types Packs/Day [...] Description 05/16/2025 10:30 AM EDT Office Visit [address] [address] Aura Vu NP [address] [place] [address] 06/07/2025 3:45 PM EST Office Visit [address] [address] Mackenzie Estrada MD [address] [place] [address] 07/09/2025 9:45 AM EST Office Visit [address] [address] documented as of this encounter Goals Goal [...] as of this encounter Care Teams Meat Cooler Relationship Specialty Start Date End Date Mackenzie Estrada MD [address] [place] [address] PCP - General Family Medicine 07/10/20 Hemalatha Pretty Reinsurance Claims AnalystAir Deodorizer Servicer 01/02/25 documented as of this encounter
--- OUTSIDE RECORDS SUMMARY | 2025-05-14 20:42 | XMS_ITS | Encounter Summary ---
Author Organization [employer] Address [address] [facility] [address] 7t [place] [address] Care Team Providers Care Buckle And Button Maker Name Role Phone Mackenzie Estrada MD Primary Care Provider [phone] Casper Magaña RN Unavailable [phone] Ruth Ann Price Unavailable Unavailable Ruth Ann Price Unavailable Ruth Ann Price Unavailable Reason for Visit * Reason Comments Med Refill Encounter Details Date Type Department Care Team (Late st Contact Info) Description 10/10/2024 Refill [facility] 230 [place] [address] Kat Yo MD 230 [place], [place] [phone] Rheumatoid arthritis involving right hand with positive [...] Description 05/16/2025 10:30 AM EDT Office Visit [facility] [address] [place] [address] Aura Vu NP [address] [place] [address] 06/07/2025 3:45 PM EST Office Visit [facility] [address] [place] [address] Mackenzie Estrada MD [address] [place] [address] 07/09/2025 9:45 AM EST Office Visit [address] [address] documented as of this encounter Goals Goal Patient Goal Type Associated Problems Recent Progress Patient-Stated? 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 documented in this encounter Additional Health Concerns Assessment Noted Time PHQ-9 Depression Total Score: 2 04/30/20 24 10:41 AM EDT documented as of this encounter Care Teams Buckle And Button Maker Relationship Specialty Start Date End Date Mackenzie Estrada MD 230 [place] [address] PCP - General Family Medicine 07/10/20 Casper Magaña, RN [address] [address] Registered Nurse Family Medicine 01/18/25 01/18/25 Ruth Ann Price 02/19/25 02/19/25 Ruth Ann Price 02/19/25 02/28/25 Ruth Ann Price 03/29/25 04/03/25 Hemalatha Pretty Homeowner Association ManagerSupervisor Gelatin Plant 01/02/25 documented as of this encounter
--- OUTSIDE RECORDS SUMMARY | 2025-05-14 20:42 | XMS_ITS | Encounter Summary ---
Author Organization [employer] Address 75 [facility] 7t [place] [address] Care Team Providers Care Hazardous Waste Technician Name Role Phone Mackenzie Estrada MD Primary Care Provider [phone] Casper Magaña RN Unavailable [phone] Ruth Ann Price Unavailable Unavailable Ruth Ann Price Unavailable Ruth Ann Price Unavailable Reason for Visit * Reason Comments Med Refill Encounter Details Date Type Department Care Team (Late st Contact Info) Description 08/19/2024 Refill [facility] 230 [place] [address] Mackenzie Estrada MD 230 [place] [address] Social History Tobacco Use Types Packs/Day Years [...] 05/16/2025 10:30 AM EDT Office Visit [address] [address] Aura Vu NP [address] [place] [address] 06/07/2025 3:45 PM EST Office Visit [address] [address] Mackenzie Estrada MD [address] [place] [address] 07/09/2025 9:45 AM EST Office Visit [address] [address] documented as of this encounter Goals Goal [...] documented as of this encounter Care Teams Hazardous Waste Technician Relationship Specialty Start Date End Date Mackenzie Estrada MD 230 [place] [address] PCP - General Family Medicine 07/10/20 Casper Magaña, JENNIFER [address] [place] [address] Registered Nurse Family Medicine 01/18/25 01/18/25 Ruth Ann Price 02/19/25 02/19/25 Ruth Ann Price 02/19/25 02/28/25 Ruth Ann Price 03/29/25 04/03/25 Hemalatha Pretty Coal DelivererMail Handler 01/02/25 documented as of this encounter
--- OUTSIDE RECORDS SUMMARY | 2025-05-14 20:42 | XMS_ITS | Encounter Summary ---
Author Organization [employer] Address 75 [facility] 7t [place] [address] Care Team Providers Care Chair Maker Name Role Phone Mackenzie Estrada MD Primary Care Provider [phone] Reason for Visit * Reason Onset Date Comments Pre-op Exam 05/09/2025 Encounter Details Date Type Department Care Team ([facility] Contact Info) Description 05/09/2025 Telephone [facility] MED[facility]INE [address] [place] [address] Mackenzie Estrada MD 230 [place] [address] Pre-op Exam Social History Tobacco Use Types Packs/Day Years [...] encounter Miscellaneous Notes * Telephone Encounter - Joshua López - 05/09/2025 3:44 PM EDT Pt and facility agreed to pre-op on 06/14 with ADMINISTRATIVE ASSISTANT OFFICE MANAGER Resident * Telephone Encounter - Mark Dumont - 05/09/2025 11:31 AM EDT Date of Surgery: N/A Surgical procedure being done: physician left elbow cyst Type of anesthesia: MAC Lab needed: Yes EKG: Yes Surgeon's name: Dr. Morgan Dean Facility name[place] [facility] [place] Surgeon's office number: [phone] Surgeon's office fax number: [phone] Contact name (person you spoke with): new Last office note from surgeon requested: Yes Send Message to Joshua López documented in this encounter Plan of Treatment Upcoming Encounters Date Type Department Care Team (Late st Contact Info) Description 05/16/2025 10:30 AM EDT Office Visit [address] [address] Aura Vu NP 230 [place] [address] 06/07/2025 3:45 PM EST Office Visit [address] [address] Mackenzie Estrada MD 230 [place] [address] 07/09/2025 9:45 AM EST Office Visit [address] [address] documented as of this encounter Goals Goal Patient Goal Type Associated Problems Recent Progress Patient-Stated? Author Quit using tobacco (cigarettes, smokeless, etc) Tobacco Use No Corey Lin, KelechiD documented as of this encounter Visit Diagnoses Not on filedocumented in this encounter Additional Health Concerns Assessment Noted Time PHQ-9 Depression Total Score: 6 04/03/20 11:40 AM EDT documented as of this encounter Care Teams Chair Maker Relationship Specialty Start Date End Date Mackenzie Estrada MD [address] [place] [address] PCP - General Family Medicine 07/10/20 Hemalatha Pretty Employee Benefits AdministratorAfter School Coordinator 01/02/25 documented as of this encounter
--- OUTSIDE RECORDS SUMMARY | 2025-05-14 20:42 | XMS_ITS | Encounter Summary ---
Author Organization [employer] Address 75 [facility] 7t [place] [address] Care Team Providers Care Rand Cementer Name Role Phone Mackenzie Estrada MD Primary Care Provider [phone] Reason for Visit * Reason Comments Med Refill Encounter Details Date Type Department Care Team ([facility] Contact Info) Description 04/09/2025 Refill [facility] MEDICINE 230 [place] [address] Sisi Kennedy FNP 505 [place] [address] Seborrheic dermatitis Social History Tobacco Use Types [...] Description 05/16/2025 10:30 AM EDT Office Visit [address] [address] Aura Vu NP [address] [place] [address] 06/07/2025 3:45 PM EST Office Visit [address] [address] Mackenzie Estrada MD [address] [place] [address] 07/09/2025 9:45 AM EST Office Visit [address] [address] documented as of this encounter Goals Goal [...] documented as of this encounter Care Teams Rand Cementer Relationship Specialty Start Date End Date Mackenzie Estrada MD 230 [place] [address] PCP - General Family Medicine 07/10/20 Hemalatha Pretty Music ProfessorSealer Operator 01/02/25 documented as of this encounter
--- OUTSIDE RECORDS SUMMARY | 2025-05-14 20:42 | XMS_ITS | Encounter Summary ---
Author Organization [employer] Address 75 [facility] 7t [place] [address] Care Team Providers Care Nursery Helper Name Role Phone Mackenzie Estrada MD Primary Care Provider Reason for Visit * Reason Comments Med Refill Encounter Details Date Type Department Care Team ([facility] Contact Info) Description 04/11/2025 Refill [facility] MEDICINE 230 [place] [address] Mackenzie Estrada MD 230 [place] [address] 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 [...] the past 12 months, has t he [employer], gas, oil or water [employer] threatened to shut off services in your [...] Description 05/16/2025 10:30 AM EDT Office Visit [facility] MEDICINE [address] [place] [address] Aura Vu NP [address] [place] [address] 06/07/2025 3:45 PM EST Office Visit [address] [address] Mackenzie Estrada MD [address] [place] [address] 07/09/2025 9:45 AM EST Office Visit [address] [address] documented as of this encounter Goals Goal [...] documented as of this encounter Care Teams Nursery Helper Relationship Specialty Start Date End Date Mackenzie Estrada MD 230 [place] [address] PCP - General Family Medicine 07/10/20 Hemalatha Pretty Data Warehousing ManagerInpatient Nursing Aide 01/02/25 documented as of this encounter
--- OUTSIDE RECORDS SUMMARY | 2025-05-14 20:42 | XMS_ITS | Encounter Summary ---
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 BPI updated today. Pain severity score of 10, activity interference score of 9. Previous BPI completed 12/11/24 with pain severity score of 10, activity interference score of 9. documented in this encounter Plan of Treatment Upcoming Encounters Date Type Department Care Team (Late st Contact Info) Description 05/16/2025 10:30 AM EDT Office Visit [facility] MED[facility]INE [address] [place] [address] Aura Vu NP 230 [place] [address] 06/07/2025 3:45 PM EST Office Visit [facility] [address] [place] [address] Mackenzie Estrada MD 230 [place] [address] 07/09/2025 9:45 AM EST Office Visit [facility] 230 [place] [address] documented as of this encounter Goals Goal [...] documented as of this encounter Care Teams Material Distributor Relationship Specialty Start Date End Date Mackenzie Estrada MD 230 [place] [address] PCP - General Family Medicine 07/10/20 Hemalatha Pretty Industrial RendererHorticulture Instructor 01/02/25 documented as of this encounter
--- OUTSIDE RECORDS SUMMARY | 2025-05-14 20:42 | XMS_ITS | Encounter Summary ---
Author Organization [employer] Address 75 [facility] 7t [place] [address] Care Team Providers Care Supervising Librarian Name Role Phone Mackenzie Estrada MD Primary Care Provider [phone] Casper Magaña RN Unavailable [phone] Ruth Ann Price Unavailable Unavailable Ruth Ann Price Unavailable Ruth Ann Price Unavailable Reason for Visit * Reason Comments Med Refill Encounter Details Date Type Department Care Team (Late st Contact Info) Description 10/10/2024 Refill [facility] MEDICINE 230 [place] [address] Mackenzie Estrada MD 230 [place] [address] 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 ([facility]) Social History Tobacco Use Types [...] [facility] MED[facility]INE [address] [place] [address] Aura Vu NP [address] [place] [address] 06/07/2025 3:45 PM EST Office Visit [facility] MEDICINE [address] [place] [address] Mackenzie Estrada MD [address] [place] [address] 07/09/2025 9:45 AM EST Office Visit [address] [address] documented as of this encounter Goals Goal [...] documented as of this encounter Care Teams Supervising Librarian Relationship Specialty Start Date End Date Mackenzie Estrada MD [address] [place] [address] PCP - General Family Medicine 07/10/20 Casper Magaña, JENNIFER [address] [place] [address] Registered Nurse Family Medicine 01/18/25 01/18/25 Ruth Ann Price 02/19/25 02/19/25 Ruth Ann Price 02/19/25 02/28/25 Ruth Ann Price 03/29/25 04/03/25 Hemalatha Pretty Mill House SupervisorStudent Education Specialist 01/02/25 documented as of this encounter
--- OUTSIDE RECORDS SUMMARY | 2025-05-14 20:42 | XMS_ITS | Encounter Summary ---
Author Organization [employer] Address 75 [facility] 7t [place] [address] Care Team Providers Care Air Breaker Operator Name Role Phone Mackenzie Estrada MD Primary Care Provider [phone] Reason for Visit * Reason Comments Med Refill Encounter Details Date Type Department Care Team ([facility] Contact Info) Description 04/07/2025 Refill [facility] MEDICINE 230 [place] [address] Mackenzie Estrada MD 230 [place] [address] Social History Tobacco Use Types Packs/Day Years [...] Description 05/16/2025 10:30 AM EDT Office Visit [facility] MEDICINE [address] [place] [address] Aura Vu NP [address] [place] [address] 06/07/2025 3:45 PM EST Office Visit [address] [address] Mackenzie Estrada MD [address] [place] [address] 07/09/2025 9:45 AM EST Office Visit [address] [address] documented as of this encounter Goals Goal Patient Goal Type Associated Problems Recent Progress Patient-Stated? Author Quit using tobacco (cigarettes, smokeless, etc) Tobacco Use No Corey Lin, KelechiD documented as of this encounter Visit Diagnoses Not on filedocumented in this encounter Additional Health Concerns Assessment Noted Time PHQ-9 Depression Total Score: 6 04/03/20 11:40 AM EDT documented as of this encounter Care Teams Air Breaker Operator Relationship Specialty Start Date End Date Mackenzie Estrada MD 230 [place] [address] PCP - General Family Medicine 07/10/20 Hemalatha Pretty Wedding Planning InternshipFoam Rubber Fabricator 01/02/25 documented as of this encounter
--- OUTSIDE RECORDS SUMMARY | 2025-05-14 20:42 | XMS_ITS | Encounter Summary ---
Author Organization [employer] Address 75 [facility] 7t [place] [address] Care Team Providers Care Hvac Service Tech Name Role Phone Mackenzie Estrada MD Primary Care Provider [phone] Reason for Visit * Reason Comments Med Refill Encounter Details Date Type Department Care Team ([facility] Contact Info) Description 05/14/2025 Refill [facility] 230 [place], [place] [phone] Mackenzie Estrada MD 230 [place], [place] [phone] Subacute cough Social History Tobacco Use Types Packs/Day Years [...] Description 05/16/2025 10:30 AM EDT Office Visit [facility] MEDICINE [address] [place] [address] Aura Vu NP [address] [place] [address] 06/07/2025 3:45 PM EST Office Visit [address] [address] Mackenzie Estrada MD [address] [place] [address] 07/09/2025 9:45 AM EST Office Visit [address] [address] documented as of this encounter Goals Goal Patient Goal Type Associated Problems Recent Progress Patient-Stated? Author Quit using tobacco (cigarettes, smokeless, etc) Tobacco Use No Corey Lin, Bailey documented as of this encounter Visit Diagnoses Diagnosis Subacute cough documented in this encounter Additional Health Concerns Assessment Noted Time PHQ-9 Depression Total Score: 6 09/03/20 25 11:40 AM EDT documented as of this encounter Care Teams Hvac Service Tech Relationship Specialty Start Date End Date Mackenzie Estrada MD 230 [place] [address] PCP - General Family Medicine 07/10/20 Hemalatha Pretty Salesperson NecktiesMounted Police Officer 01/02/25 documented as of this encounter
--- OUTSIDE RECORDS SUMMARY | 2025-05-14 20:42 | XMS_ITS | Encounter Summary ---
Author Organization [employer] Address [address] [facility] [address] 7t [place] [address] Care Team Providers Care Rotor Balancer Name Role Phone Mackenzie Estrada MD Primary Care Provider [phone] Casper Magaña RN Unavailable [phone] Ruth Ann Price Unavailable Unavailable Ruth Ann Price Unavailable Ruth Ann Price Unavailable Encounter Details Date Type Department Care Team (Late st Contact Info) Description 12/13/2023 Orders Only [facility] MEDICINE 230 [place] [address] Mackenzie Estrada MD 230 [place], [place] [phone] Pain in both hands Social History Tobacco [...] Description 05/16/2025 10:30 AM EDT Office Visit [address] [address] Aura Vu NP [address] [place] [address] 06/07/2025 3:45 PM EST Office Visit [address] [address] Mackenzie Estrada MD [address] [place] [address] 07/09/2025 9:45 AM EST Office Visit [address] [address] documented as of this encounter Goals Goal Patient Goal Type Associated Problems Recent Progress Patient-Stated? Author Quit using tobacco (cigarettes, smokeless, etc) Tobacco Use No Corey Lin, PharmD documented as of this encounter Visit Diagnoses Diagnosis Pain in both hands documented in this encounter Care Teams Rotor Balancer Relationship Specialty Start Date End Date Mackenzie Estrada MD [address] [place] [address] PCP - General Family Medicine 07/10/20 Casper Magaña, RN [address] [place] [address] [place] [address] Registered Nurse Family Medicine 01/18/25 01/18/25 Ruth Ann Price 02/19/25 02/19/25 Ruth Ann Price 02/19/25 02/28/25 Ruth Ann Price 03/29/25 04/03/25 Hemalatha Pretty Asphalt Spreader OperatorFolding Rules Printing Machine Operator 01/02/25 documented as of this encounter
--- OUTSIDE RECORDS SUMMARY | 2025-05-14 20:42 | XMS_ITS | Encounter Summary ---
Author Organization [employer] Address 75 [facility] 7t [place] [address] Care Team Providers Care Landscape Architecture Professor Name Role Phone Mackenzie Estrada MD Primary Care Provider [phone] Encounter Details Date Type Department Care Team (Latest Contact Info) Description 04/05/2025 Results Follow-Up [facility] 505 [place], [place] [phone] Sisi Kennedy FNP 505 [place] [address] CBC auto differential Social History Tobacco Use [...] Tc to pt via S ID: [id number] to let them know per PCP Please [...] Description 05/16/2025 10:30 AM EDT Office Visit [facility] MED[facility]INE [address] [place] [phone] Aura Vu NP 230 [place], [place] [phone] 06/07/2025 3:45 PM EST Office Visit [address] [phone] Mackenzie Estrada MD [address] [place] [address] 07/09/2025 9:45 AM EST Office Visit [address] [address] documented as of this encounter Goals Goal Patient Goal Type Associated Problems Recent Progress Patient-Stated? Author Quit using tobacco (cigarettes, smokeless, etc) Tobacco Use Corey Cornell, PharmD documented as of this encounter Visit Diagnoses Not on filedocumented in this encounter Additional Health Concerns Assessment Noted Time PHQ-9 Depression Total Score: 04/03/20 11:40 AM EDT documented as of this encounter Care Teams Landscape Architecture Professor Relationship Specialty Start Date End Date Mackenzie Estrada MD [address] [place] [phone] PCP - General Family Medicine 07/10/20 Hemalatha Pretty Manager CompensationJewel Gauger 01/02/25 documented as of this encounter
--- OUTSIDE RECORDS SUMMARY | 2025-05-14 20:42 | XMS_ITS | Encounter Summary ---
Author Organization [employer] Address 75 [facility] 7t [place] [address] Care Team Providers Care Machine Carton Marker Name Role Phone Mackenzie Estrada MD Primary Care Provider [phone] Ruth Ann Price Unavailable Unavailable Ruth Ann Price Unavailable Ruth Ann Price Unavailable Reason for Visit * Reason Comments Med Refill Encounter Details Date Type Department Care Team ([facility] st Contact Info) Description 02/01/2025 Refill [facility] MEDICINE 230 [place] [address] Ebony Daigle MD 230 [place], [place] [phone] Social History Tobacco Use Types Packs/Day Years [...] Description 05/16/2025 10:30 AM EDT Office Visit [address] [address] Aura Vu NP [address] [place] [address] 06/07/2025 3:45 PM EST Office Visit [address] [address] Mackenzie Estrada MD [address] [place] [address] 07/09/2025 9:45 AM EST Office Visit [address] [address] documented as of this encounter Goals Goal Patient Goal Type Associated Problems Recent Progress Patient-Stated? Author Quit using tobacco (cigarettes, smokeless, etc) Tobacco Use No Lin, Corey, PharmD documented as of this encounter Visit Diagnoses Not on filedocumented in this encounter Additional Health Concerns Assessment Noted Time PHQ-9 Depression Total Score: 2 04/30/20 24 10:41 AM EDT documented as of this encounter Care Teams Machine Carton Marker Relationship Specialty Start Date End Date Mackenzie Estrada MD 230 [place] [address] PCP - General Family Medicine 07/10/20 Ruth Ann Price 02/19/25 02/19/25 Ruth Ann Price 02/19/25 02/28/25 Ruth Ann Price 03/29/25 04/03/25 Hemalatha Pretty Clam SorterSql Architect 01/02/25 documented as of this encounter
--- OUTSIDE RECORDS SUMMARY | 2025-05-14 20:42 | XMS_ITS | Encounter Summary ---
Author Organization [employer] Address 75 [facility] 7t [place] [address] Care Team Providers Care Network Cabler Name Role Phone Mackenzie Estrada MD Primary Care Provider [phone] Reason for Visit * Reason Onset Date Comments Chartprep 05/14/2025 Encounter Details Date Type Department Care Team ([facility] Contact Info) Description 05/14/2025 Telephone [facility] MED[facility] 230 [place] [address] Mackenzie Estrada MD 230 [place] [address] Chartprep Social History Tobacco Use Types Packs/Day Years [...] encounter Miscellaneous Notes * Telephone Encounter - Simone Mariano MA - 05/14/2025 10:17 AM EDT Chart Prep Labs: done Images: done except mammogramorder placed on 01/24/25 Referrals: complete Vaccines due: Covid, Flu, and Zoster Screenings: mammogram Overdue care gaps: Not applicable documented in this encounter Plan of Treatment Upcoming Encounters Date Type Department Care Team (Late st Contact Info) Description 05/16/2025 10:30 AM EDT Office Visit [facility] MEDICINE [address] [place] [address] Aura Vu NP 230 [place] [address] 06/07/2025 3:45 PM EST Office Visit [facility] MED[facility]INE 230 [place] [address] Mackenzie Estrada MD 230 [place] [address] 07/09/2025 9:45 AM EST Office Visit [facility] 230 [facility] [place] [address] documented as of this encounter Goals Goal Patient Goal Type Associated Problems Recent Progress Patient-Stated? Author Quit using tobacco (cigarettes, smokeless, etc) Tobacco Use No Corey Lin, PharmD documented as of this encounter Visit Diagnoses Not on filedocumented in this encounter Additional Health Concerns Assessment Noted Time PHQ-9 Depression Total Score: 6 04/03/20 11:40 AM EDT documented as of this encounter Care Teams Network Cabler Relationship Specialty Start Date End Date Mackenzie Estrada MD 230 [facility] [place] [address] PCP - General Family Medicine 07/10/20 Hemalatha Pretty Interrelated Special Education TeacherHand Button Splitter 01/02/25 documented as of this encounter
--- OUTSIDE RECORDS SUMMARY | 2025-05-14 20:42 | XMS_ITS | Encounter Summary ---
Author Organization [employer] Address 75 [facility] 7t [place] [address] Care Team Providers Care Investigation Division Sergeant Name Role Phone Mackenzie Estrada MD Primary Care Provider [phone] Casper Magaña RN Unavailable [phone] Ruth Ann Price Unavailable Unavailable Ruth Ann Price Unavailable Ruth Ann Price Unavailable Reason for Visit * Reason Comments Med Refill Encounter Details Date Type Department Care Team (Late st Contact Info) Description 02/08/2023 Refill [facility] MED[facility]INE 230 [place] [address] Mackenzie Estrada MD 230 [place] [address] Pain in both hands Social History Tobacco [...] Description 05/16/2025 10:30 AM EDT Office Visit [address] [address] Aura Vu NP [address] [place] [address] 06/07/2025 3:45 PM EST Office Visit [address] [address] Mackenzie Estrada MD [address] [place] [address] 07/09/2025 9:45 AM EST Office Visit [address] [address] documented as of this encounter Visit Diagnoses Diagnosis Pain in both hands documented in this encounter Care Teams Investigation Division Sergeant Relationship Specialty Start Date End Date Mackenzie Estrada MD [address] [place] [address] PCP - General Family Medicine 07/10/20 Casper Magaña, JENNIFER [address] [place] [address] Registered Nurse Family Medicine 01/18/25 01/18/25 Ruth Ann Price 02/19/25 02/19/25 Ruth Ann Price 02/19/25 02/28/25 Ruth Ann Price 03/29/25 04/03/25 Hemalatha Pretty Corporate PilotAnimal Nutritionist 01/02/25 documented as of this encounter
--- OUTSIDE RECORDS SUMMARY | 2025-05-14 20:43 | XMS_ITS | Encounter Summary ---
Author Organization [employer] Address 75 [facility] 7t [place] [address] Care Team Providers Care Plastic Cutter Name Role Phone Mackenzie Estrada MD Primary Care Provider [phone] Casper Magaña RN Unavailable [phone] Ruth Ann Price Unavailable Unavailable Ruth Ann Price Unavailable Ruth Ann Price Unavailable Reason for Visit * Reason Comments Med Refill Encounter Details Date Type Department Care Team (Late st Contact Info) Description 01/12/2024 Refill [facility] MEDICINE 230 [place] [address] Mackenzie Estrada MD 230 [place] [address] Rheumatoid arthritis involving multiple sites with positive rheumatoid factor ([facility]) Social History Tobacco Use Types [...] Description 05/16/2025 10:30 AM EDT Office Visit [facility] MED[facility]INE [address] [place] [address] Aura Vu NP [address] [place] [address] 06/07/2025 3:45 PM EST Office Visit [address] [address] Mackenzie Estrada MD [address] [place] [address] 07/09/2025 9:45 AM EST Office Visit [address] [address] documented as of this encounter Goals Goal Patient Goal Type Associated Problems Recent Progress Patient-Stated? Author Quit using tobacco (cigarettes, smokeless, etc) Tobacco Use No Corey Lin, KelechiD documented as of this encounter Visit Diagnoses Diagnosis Rheumatoid arthritis involving multiple sites with positive rheumatoid factor (CMS/HCC) ([facility]) documented in this encounter Care Teams Plastic Cutter Relationship Specialty Start Date End Date Mackenzie Estrada MD 230 [place] [address] PCP - General Family Medicine 07/10/20 Casper Magaña, JENNIFER 505 [place] [address] Registered Nurse Family Medicine 01/18/25 01/18/25 Ruth Ann Price 02/19/25 02/19/25 Ruth Ann Price 02/19/25 02/28/25 Ruth Ann Price 03/29/25 04/03/25 Hemalatha Pretty Metal Leaf LayerMason Tender Restoration Labor 01/02/25 documented as of this encounter
--- OUTSIDE RECORDS SUMMARY | 2025-05-14 20:43 | XMS_ITS | Encounter Summary ---
Author Organization [employer] Address 75 [facility] 7t [place] [address] Care Team Providers Care Linen Checker Name Role Phone Mackenzie Estrada MD Primary Care Provider [phone] Casper Magaña RN Unavailable Ruth Ann Price Unavailable Unavailable Ruth Ann Price Unavailable Ruth Ann Price Unavailable Reason for Visit * Reason Comments Med Refill Encounter Details Date Type Department Care Team (Late st Contact Info) Description 07/26/2023 Refill [facility] MEDICINE 230 [place] [address] Name, MD Mark 230 [place] [address] Pain in both hands Social History Tobacco [...] Description 05/16/2025 10:30 AM EDT Office Visit [address] [address] Aura Vu NP [address] [place] [address] 06/07/2025 3:45 PM EST Office Visit [address] [address] Mackenzie Estrada MD [address] [place] [address] 07/09/2025 9:45 AM EST Office Visit [address] [address] documented as of this encounter Goals Goal Patient Goal Type Associated Problems Recent Progress Patient-Stated? Author Quit using tobacco (cigarettes, smokeless, etc) Tobacco Use No Corey Lin, Bailey documented as of this encounter Visit Diagnoses Diagnosis Pain in both hands documented in this encounter Care Teams Linen Checker Relationship Specialty Start Date End Date Mackenzie Estrada MD [address] [place] [address] PCP - General Family Medicine 07/10/20 Casper Magaña, RN [address] [place] [address] ZAHRA Conn [address] Registered Nurse Family Medicine 01/18/25 01/18/25 Ruth Ann Price 02/19/25 02/19/25 Ruth Ann Price 02/19/25 02/28/25 Ruth Ann Price 03/29/25 04/03/25 Hemalatha Pretty Field ObserverMelt House Supervisor 01/02/25 documented as of this encounter
--- OUTSIDE RECORDS SUMMARY | 2025-05-14 20:43 | XMS_ITS | Encounter Summary ---
Author Organization [employer] Address 75 [facility] 7t [place] [address] Care Team Providers Care Skin Therapist Name Role Phone Mackenzie Estrada MD Primary Care Provider [phone] Casper Magaña RN Unavailable [phone] Ruth Ann Price Unavailable Unavailable Ruth Ann Price Unavailable Ruth Ann Price Unavailable Reason for Visit * Reason Comments Med Refill Encounter Details Date Type Department Care Team (Late st Contact Info) Description 06/01/2023 Refill [facility] MEDICINE 230 [place] [address] Mackenzie Estrada MD 230 [place], [place] [phone] Pain in both hands Social History Tobacco [...] 05/16/2025 10:30 AM EDT Office Visit [address] [address] Aura Vu NP [address] [place] [address] 06/07/2025 3:45 PM EST Office Visit [address] [address] Mackenzie Estrada MD [address] [place] [address] 07/09/2025 9:45 AM EST Office Visit [address] [address] documented as of this encounter Goals Goal Patient Goal Type Associated Problems Recent Progress Patient-Stated? Author Quit using tobacco (cigarettes, smokeless, etc) Tobacco Use No Corey Lin, KelechiD documented as of this encounter Visit Diagnoses Diagnosis Pain in both hands documented in this encounter Care Teams Skin Therapist Relationship Specialty Start Date End Date Mackenzie Estrada MD [address] [place] [address] PCP - General Family Medicine 07/10/20 Casper Magaña, RN [address] [place] [address] ZAHRA Conn [address] Registered Nurse Family Medicine 01/18/25 01/18/25 Ruth Ann Price 02/19/25 02/19/25 Ruth Ann Price 02/19/25 02/28/25 Ruth Ann Price 03/29/25 04/03/25 Hemalatha Pretty Drywall Stripper HelperManager Warehouse 01/02/25 documented as of this encounter
--- OUTSIDE RECORDS SUMMARY | 2025-05-14 20:43 | XMS_ITS | Encounter Summary ---
Author Organization [employer] Address [address] [facility] 7t [place] [address] Care Team Providers Care Wig Comber Name Role Phone Mackenzie Estrada MD Primary Care Provider [phone] Casper Magaña RN Unavailable [phone] Ruth Ann Price Unavailable Unavailable Ruth Ann Price Unavailable Ruth Ann Price Unavailable Reason for Visit * Reason Comments Med Refill Encounter Details Date Type Department Care Team (Late st Contact Info) Description 08/26/2023 Refill [facility] MEDICINE 230 [place] [address] Sisi Kennedy, FARHEEN 505 [place] [address] Viral upper respiratory tract infection Social History [...] Description 05/16/2025 10:30 AM EDT Office Visit [address] [address] Aura Vu NP [address] [place] [address] 06/07/2025 3:45 PM EST Office Visit [address] [address] Mackenzie Estrada MD [address] [place] [address] 07/09/2025 9:45 AM EST Office Visit [address] [address] documented as of this encounter Goals Goal Patient Goal Type Associated Problems Recent Progress Patient-Stated? Author Quit using tobacco (cigarettes, smokeless, etc) Tobacco Use No Corey Lin, KelechiD documented as of this encounter Visit Diagnoses Diagnosis Viral upper respiratory tract infection Acute upper respiratory infections of unspecified site documented in this encounter Care Teams Wig Comber Relationship Specialty Start Date End Date Mackenzie Estrada MD [address] [place] [address] PCP - General Family Medicine 07/10/20 Casper Magaña, JENNIFER [address] [place] [address] Registered Nurse Family Medicine 01/18/25 01/18/25 Ruth Ann Price 02/19/25 02/19/25 Ruth Ann Price 02/19/25 02/28/25 Ruth Ann Price 03/29/25 04/03/25 Hemalatha Pretty Steam Pressure Chamber OperatorCommercial Green Building Architect 01/02/25 documented as of this encounter
--- OUTSIDE RECORDS SUMMARY | 2025-05-14 20:43 | XMS_ITS | Encounter Summary ---
Author Organization [employer] Address [address] [facility] [address] 7t [place] [address] Care Team Providers Care Casket Liner Name Role Phone Mackenzie Etsrada MD Primary Care Provider [phone] Casper Magaña RN Unavailable [phone] Ruth Ann Price Unavailable Unavailable Ruth Ann Price Unavailable Ruth Ann Price Unavailable Encounter Details Date Type Department Care Team (Late st Contact Info) Description 06/03/2023 Orders Only [facility] MEDICINE 230 [place] [address] Mackenzie Estrada MD 230 [place], [place] [phone] Pain in both hands Social History Tobacco [...] 05/16/2025 10:30 AM EDT Office Visit [address] [address] Aura Vu NP [address] [place] [address] 06/07/2025 3:45 PM EST Office Visit [address] [address] Mackenzie Estrada MD [address] [place] [address] 07/09/2025 9:45 AM EST Office Visit [address] [address] documented as of this encounter Goals Goal [...] EST Narrative 06/03/2023 5:47 PM EDT [address] [address] XRay Report Signed Patient: Ginette Arceo MR #: [id number] : 1975 Acct:[id number] Age/Sex: 47 / F ADM Date: 06/25/23 Loc: HO.ED Attending Dr: Ordering Physician: Treasure Clemons Date of Service: 06/25/23 Procedure(s): XR chest 2V Accession Number(s): [id number] cc: Mackenzie Estrada; Treasure Clemons EXAMINATION: XR [...] in OV> 06/25/23 1230 DD/ 1215 TD/TT: Plant Reliability Engineer: [facility] Procedure Note Donotuseinterpreter, Image - 06/25/[address] [address] XRay Report Signed Patient: Ginette ArceoMR #: [id number] : 1975Acct:[id number] Age/Sex: 47 / FADM Date: 06/25/23 Loc: HO.ED Attending Dr: Ordering Physician: Treasure Clemons Date of Service: 06/25/23 Procedure(s): XR chest 2V Accession Number(s): [id number] cc: Mackenzie Estrada; Treasure Clemons EXAMINATION: XR [...] in OV> 06/25/23 1230 DD/ 1215 TD/TT: Plant Reliability Engineer: [facility] External Provider IMG XR PROCEDURES Edited Result - Final * (ABNORMAL) Urinalysis, Complete, with Reflex to Culture (06/03/2023 4:49 PM EDT) Color Urine Yellow [facility] Appearance Urine Clear [facility] PH 5.5 5.0 - 9.0 [facility] Glucose Urine UA Negative Negative mg/dL [facility] Urine Blood Large (3+)(A) Negative [facility] Specific Ulysses - Urine 1.025 1.005 - 1.025 [facility] Urine Protein Negative Neg-Trace mg/dL [facility] Urine Ketones Negative Negative mg/dL [facility] Nitrite Urine Negative Negative [facility] Leukocyte Esterase Urine Negative Negative [facility] RBC Urine >20(A) 0 - 2 /HPF [facility] Urine WBC 0-5 0 - 5 /HPF [facility] Urine Squamous Epithelial Cell 11-20 0 - 2 /HPF [facility] Urine Bacteria 1+ None Seen [facility] Hyaline Casts, Urine 0-2 0 - 2 /LPF [facility] 06/03/2023 4:49 PM EDT 06/03/2023 4:52 PM EDT [facility] - 06/03/2023 5:00 PM EDT Urine, Clean Catch Generic External Data Provider LAB URINE ORDERAB LES Final Result Performing Organization Address City/[facility] Co de Phone Number [facility] [address] [place] [address] [phone] * (ABNORMAL) Urinalysis w/reflex microscopic (06/03/2023 4:49 PM EDT) Color Urine Yellow [facility] Appearance Urine Clear [facility] PH 5.5 5.0 - 9.0 [facility] Glucose Urine UA Negative Negative mg/dL [facility] Urine Blood Large (3+)(A) Negative [facility] Specific Ulysses - Urine 1.025 1.005 - 1.025 [facility] Urine Protein Negative Neg-Trace mg/dL [facility] Urine Ketones Negative Negative mg/dL [facility] Nitrite Urine Negative Negative [facility] Leukocyte Esterase Urine Negative Negative [facility] 06/03/2023 4:49 PM EDT 06/03/2023 4:52 PM EDT [facility] - 06/03/2023 4:57 PM EDT Urine, Clean Catch us Generic External Data Provider LAB URINE ORDERAB LES Final Result Performing Organization Address [facility]/ZIP Co de Phone Number [facility] [address] [place] [address] [phone] * Influenza A B2 ID NOW (Corona) (06/03/2023 4:34 PM EDT) IDNOW SERIAL# [id number] [facility] Influenza A Negative Negative [facility] Influenza B2 Negative Negative [facility] Influenza A B2 Note See Note [facility] Comment:The Corona ID NOW In [...] LAB MICROBIOLOGY - GENERAL ORDERABLES Final Result [facility] [address] [place] [phone] * COVID-19 ID NOW (CORONA) (06/03/2023 4:34 PM EDT) IDNOW SERIAL# [id number] [facility] COVID-19 TEST Negative Negative [facility] COVID-19 NOTE See Note [facility] Comment: Results are for the identification of SARS-CoV2 RNA. TheSARS-CoV2 RNA is generally detectable in respiratory samplesduring the acute phase of infection. Positive results areindicative of the presence of SARS-CoV-2 RNA; clinicalcorrelation with patient history and other diagnosticinformation is necessary to determine patient infectionstatus. Positive results do not rule out bacterial infectionor co- infection with other viruses.Testing facilities within the [facility] and itsterritories are required to report [...] use by authorized laboratories.Testing performed on the Lion[employer] ID NOW utilizing NAAT. 06/03/2023 4:34 PM EDT 06/03/2023 4:40 PM EDT us Generic External Data Provider LAB MOLECULAR ARNAV GNOSTICS ORDERABLES Final Result [facility] [address] [place] [address] [phone] documented in this encounter Visit Diagnoses Diagnosis Pain in both hands documented in this encounter Care Teams Casket Liner Relationship Specialty Start Date End Date Mackenzie Estrada MD [address] [place] [address] PCP - General Family Medicine 07/10/20 Casper Magaña, JENNIFER [address] [place] [address] Registered Nurse Family Medicine 01/18/25 01/18/25 Ruth Ann Price 02/19/25 02/19/25 Ruth Ann Price 02/19/25 02/28/25 Ruth Ann Price 03/29/25 04/03/25 Hemalatha Pretty Construction Crew MemberMachine Plaster Mixer 01/02/25 documented as of this encounter
--- OUTSIDE RECORDS SUMMARY | 2025-05-14 20:43 | XMS_ITS | Encounter Summary ---
Author Organization [employer] Address 75 [facility] 7t [place] [address] Care Team Providers Care Lock Plater Name Role Phone Mackenzie Estrada MD Primary Care Provider [phone] Ruth Ann Price Unavailable Reason for Visit * Reason Comments Med Refill Encounter Details Date Type Department Care Team ([facility] st Contact Info) Description 03/14/2025 Refill [facility] MEDICINE 230 [place] [address] Livia Amos MD [address] [place] [address] 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 [...] Description 05/16/2025 10:30 AM EDT Office Visit [address] [address] Aura Vu NP [address] [place] [address] 06/07/2025 3:45 PM EST Office Visit [address] [address] Mackenzie Estrada MD [address] [place] [address] 07/09/2025 9:45 AM EST Office Visit [address] [address] documented as of this encounter Goals Goal Patient Goal Type Associated Problems Recent Progress Patient-Stated? 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
--- OUTSIDE RECORDS SUMMARY | 2025-05-14 20:43 | XMS_ITS | Encounter Summary ---
Author Organization [employer] Address 75 [facility] 7t [place] [address] Care Team Providers Care Lap Checker Name Role Phone Mackenzie Estrada MD Primary Care Provider [phone] Casper Magaña RN Unavailable [phone] Ruth Ann Price Unavailable Unavailable Ruth Ann Price Unavailable Ruth Ann Price Unavailable Reason for Visit * Reason Onset Date Comments Triage 11/10/2022 Encounter Details Date Type Department Care Team ([facility] st Contact Info) Description 11/10/2022 Telephone [facility] MEDICINE 230 [place] [address] Mackenzie Estrada MD 230 [place] [address] Triage Social History Tobacco Use Types Packs/Day [...] - 11/11/2022 11:10 AM EDT TC to [phone] via [employer]ters in regards to below message. Pt reports she went to [facility] since [facility] did not return her call. RN informed pt triage nurses attempted to call pt x2 however pt did not answer. 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 RN asked if [facility] informed the pt they were going to order it however pt was not sure. RN placed pt on hold and called [facility] pharmacy who reports it is supposed to be arriving in store today and pt should call around 3pm to inquire if it was received and ready for car pick up driver. Pt verbalized understanding. RN advised pt if her rash does not resolve with medication and her pain does not resolve to call [facility] to schedule an appt for further evaluation. Pt verbalized understanding. Pt to F/U PRN. RN has printed ED note and placed in scan bin * Telephone Encounter - Chika Ingram LPN - 11/10/2022 2:30 PM EDT Triage call returned to patient with [employer] recreation facilities supervisor [phone] to listed number x 2 no answer. Left message to return call to [phone]. Team Nurses tasked to follow with patient [...] Description 05/16/2025 10:30 AM EDT Office Visit [address] [address] Aura Vu NP [address] [place] [address] 06/07/2025 3:45 PM EST Office Visit [address] [address] Mackenzie Estrada MD [address] [place] [address] 07/09/2025 9:45 AM EST Office Visit [address] [address] documented as of this encounter Visit Diagnoses Not on filedocumented in this encounter Care Teams Lap Checker Relationship Specialty Start Date End Date Mackenzie Estrada MD [address] [place] [address] PCP - General Family Medicine 07/10/20 Casper Magaña, JENNIFER [address] [place] [address] Registered Nurse Family Medicine 01/18/25 01/18/25 Ruth Ann Price 02/19/25 02/19/25 Ruth Ann Price 02/19/25 02/28/25 Ruth Ann Price 03/29/25 04/03/25 Hemalatha Pretty Racing Secretary And HandicapperMechanic Helper 01/02/25 documented as of this encounter
--- OUTSIDE RECORDS SUMMARY | 2025-05-14 20:43 | XMS_ITS | Encounter Summary ---
Author Organization [employer] Address [address] [facility] 7t [place] [address] Care Team Providers Care Violin Mechanic Name Role Phone Mackenzie Estrada MD Primary Care Provider [phone] Casper Magaña RN Unavailable [phone] Ruth Ann Price Unavailable Unavailable Ruth Ann Price Unavailable Ruth Ann Price Unavailable Reason for Visit * Reason Comments Med Refill Encounter Details Date Type Department Care Team (Late st Contact Info) Description 06/02/[address] [facility] MEDICINE [address] [place] [address] Mackenzie Estrada MD [address] [place], [place] [phone] Pain in both hands Social History Tobacco [...] Description 05/16/2025 10:30 AM EDT Office Visit [address] [address] Aura Vu NP [address] [place] [address] 06/07/2025 3:45 PM EST Office Visit [address] [address] Mackenzie Estrada MD [address] [place] [address] 07/09/2025 9:45 AM EST Office Visit [address] [address] documented as of this encounter Goals Goal Patient Goal Type Associated Problems Recent Progress Patient-Stated? Author Quit using tobacco (cigarettes, smokeless, etc) Tobacco Use No Corey Lin, KelechiD documented as of this encounter Visit Diagnoses Diagnosis Pain in both hands documented in this encounter Care Teams Violin Mechanic Relationship Specialty Start Date End Date Mackenzie Estrada MD [address] [place] [address] PCP - General Family Medicine 07/10/20 Casper Magaña, RN [address] [place] [address] ZAHRA Conn [address] Registered Nurse Family Medicine 01/18/25 01/18/25 Ruth Ann Price 02/19/25 02/19/25 Ruth Ann Price 02/19/25 02/28/25 Ruth Ann Price 03/29/25 04/03/25 Hemalatha Pretty Radio Survey WorkerGolf Course Designer 01/02/25 documented as of this encounter
--- OUTSIDE RECORDS SUMMARY | 2025-05-14 20:43 | XMS_ITS | Clinical Summary ---
Author Organization [employer] Address [address] [facility] [address] [place] [address] Care Team Providers Care Looper Fixer Name Role Phone Mackenzie Estrada MD Primary Care Provider [phone] Allergies Active Allergy Reactions Criticality Noted Date Comments Rhodelia (Diagnostic) 05/23/2020 Rhodelia Oil Anaphylaxis High 07/19/2022 Morphine 06/02/2015 Other [...] 05/26/20 22 Active Sharps Container (GUARDIAN Sharps Tram Inspector) misc 06/15/20 22 Active Vitamin D High Potency 25 MCG (1000 UT) capsule Take 25 mcg by mouth in the morning. 12/11/19 23 Active beta carotene (vitamin A) 3 MG (20870 UT) capsule Take by mouth in the [...] BY MOUTH EVERY WEEK 02/24/20 24 Active nitroglycerin (Nitrostat) 0.4 MG SL [...] MORNING 90 tablet 3 04/15/20 25 Active Incruse Ellipta 62.5 MCG/ACT aerosol powderIndicati ons:Subacute cough INHALE 1 PUFF BY MOUTH EVERY DAY AT THE SAME TIME RINSE MOUTH AFTER USING 30 each 05/14/20 25 Active oxyCODONE-acet aminophen (Percocet) 7.5-325 MG tabletIndicati ons:Osteonecro sis of hip with collapse of femoral head present on x-ray (HCC) Take 1 tablet by mouth every 6 (six) hours if needed for severe pain for up to 28 days. Do not start before May 16, 2025. 112 tablet 05/16/20 25 025 Active Umeclidinium [place] (Incruse Ellipta) 62.5 MCG/ACT aerosol powderIndicati ons:Subacute cough INHALE 1 PUFF BY MOUTH EVERY DAY AT THE SAME TIME 1 each 04/23/20 24 025 Discontinued FeroSul 325 (65 Fe) MG tablet TAKE 1 TABLET BY MOUTH EVERY MORNING 90 tablet 3 04/30/20 24 025 Discontinued oxyCODONE-acet aminophen (Percocet) 7.5-325 MG tabletIndicati ons:Osteonecro sis of hip with collapse of femoral head present on x-ray (HCC) TAKE 1 TABLET BY MOUTH EVERY 6 HOURS NEEDED FOR SEVERE PAIN FOR UP TO 28 DAYS 112 tablet 03/21/20 25 025 Discontinued(R eorder (will not trigger notification to Pharmacy)) oxyCODONE-acet aminophen (Percocet) 7.5-325 MG tabletIndicati ons:Osteonecro sis of hip with collapse of femoral head present on x-ray (HCC) Take 1 tablet by mouth every 6 (six) hours if needed for severe pain for up to 28 days. Do not start before April 18, 2025. 112 tablet 04/18/20 25 025 Discontinued(R eorder (will not trigger notification to Pharmacy)) Hospital, Clinic, or Other Facility Administered Medication Ordered Dose Route Frequency Start Date End Date Status nitroglycerin (Nitrostat) SL tablet 0.4 mgIndications:Chest pain, unspecified type 0.4 mg SL Every 5 min PRN 05/14/2025 Active aspirin chewable tablet 324 mgIndications:Chest pain, unspecified type 324 mg PO Once 05/14/2025 05/14/2025 Ended Active Problems Problem Noted Date Diagnosed Date Precordial pain 05/14/2025 Assessment & Plan (05/14/2025 1:16 PM EDT): Pt here with c/o left sided chest pain that responded to NTG at home On exam P elevated EKG done showed no acute changes when compared with previous She was given 324 mg of ASA given and nitroglycerin x1 Given her persistent chest pain that improved with NTG and a previous history of NSTMI and DVT decision was made to transport to ER. Soft tissue lesion of elbow region 01/24/2025 Assessment & Plan (01/24/2025 2:42 PM EDT): They seem to be tophi lesions rheumatoid nodules, however evaluation for gout has been reportedly negative. Lesions get infected on and off over the years requiring hospitalizations or outpatient antibiotics. Patient should continue RA treatment with spikemaking supervisor, avoid trauma to elbows. Cervical paraspinal muscle spasm 01/24/2025 Long-term current use of opiate analgesic 2024 Overview (05/14/2025): Medication: Percocet 7.5/325mg Q6H PRN Indication: Rheumatoid arthritis Last [employer] Agreement: 05/14/25 Tier: II (Q3 months visits), Dr. Estrada 08/15/24 Assessment & Plan (05/14/2025 1:20 PM EDT): Timeline: - 11/06/24: Group - Utox/pill count as expected - 12/11/24: Group - Utox/pill count as expected - 03/13/25: Group - Utox/pill count as expected - 05/14/25: Group - Utox/pill count as expected Assessment & Plan (03/12/2025 2:41 PM EDT): [...] 8:21 AM EST): Has Narcan at home [employer] agreement UTD Seeing group pain visits for [employer]ING Assessment & Plan (09/11/2024 5:03 PM EST): [...] Qtc to 556 msec Assessment & Plan (05/14/2025 1:21 PM EDT): - Proceed to [facility] now for further evaluation of chest pain at night relieved by Nitro Assessment & Plan (07/03/2024 2:17 PM EST): S/P cardiac cath on 05/29/24, doing well. FU with cardiology. Continue on Metoprolol, Lipitor + Eliquis (due to recurrent DVT) + Plavix ( x 1 year). Will FU for cardio rehab. Advised to quit smoking. Periodontal disease 03/01/2024 Rheumatoid arthritis involvi ng right hand with positive rheumatoid factor ([facility]) 01/26/2024 Overview (08/14/2024): - Following with [facility] Rheum: Dr. Castro [...] to go back to her previous dose, [employer] nurse informed about my plan, I instructed [...] pt f w Dr. Corley, rheum at [facility] - Actemra infusions ( Tocilizumab) 8mg/kg every 4 weeks - methotrexate 25mg every week - Folic acid 1 mg every day -percocet 7.5/325 1 tab Q6 h -I called today her Clerical Clerk # [phone] --got apt and requested transportation to 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 Corley Assessment & Plan (05/14/2025 1:19 PM EDT): Actemra discontinued 03/08/25. Currently prescribed prednisone 20mg daily and Bactrim for PCP prophylaxis through Rheum. Reviewed ED rec/precautions. Disability is severe, limited mobility and exercise tolerance Hospital bed received Scooter evaluation complete and has arrived for patient Using Percocet 7.5/325mg for pain relief Quitting smoking is helping as well Assessment & Plan (03/12/2025 2:40 PM EDT): [...] PM EDT): Primarily managed by Rheum at [facility] Continue to take [...] not as effective -I spoke today with [facility] staff today ( Shahla) and confirmed they do have remdesivir which will be the best options for tx for this pt , ER at [facility] are expecting pt for evaluation. [...] and handed this note Rheumatoid arthritis flare (CMS/HCC) 01/18/2023 12/31/2024 Assessment & Plan (11/23/2024 4:25 [...] as per Rheumatology. Rx sent to [facility] and they will continue refill [...] organization. Date Type Department Care Team Description 05/14/2025 1:00 PM EDT Office Visit [facility] [address] [address] Raoul Hills MD Precordial pain (Primary Dx); Chest pain, unspecified type 05/14/2025 9:45 AM EDT Office Visit [facility] [address] [place] [address] Sisi Kennedy FNP Rheumatoid arthritis involving multiple sites with positive rheumatoid factor ([facility]) ([facility]) (Primary Dx); Long-term current use of opiate analgesic; NSTEMI (non-ST elevated myocardial infarction) ([facility]) 05/14/[address] [facility] [address] [place] [address] Mackenzie Estrada MD Chartprep 05/14/[address] [facility] [address] [place] [address] Kaylene Samano RN 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 ([facility]) 05/14/2025 Travel 05/14/[address] [facility] [address] [place] [address] Mackenzie Estrada MD Subacute cough 05/09/[address] [facility] [address] [place] [address] Mackenzie Estrada MD Pre-op Exam 04/17/2025 Telephone [facility] [address] [place] [address] Mackenzie Estrada MD Med Refill 04/16/[address] [facility] [address] [place] [address] Mackenzie Estrada MD 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) 04/15/[address] [facility] [address] [place] [address] Mackenzie Estrada MD 04/12/[address] [facility] [address] [place] [address] Mackenzie Estrada MD 04/11/[address] [facility] [address] [place] [address] Maceknzie Estrada MD 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) 04/09/2025 10:40 AM EDT Office Visit [facility] [address] [address] David Jensen MD Nodule of skin of both upper extremities (Primary Dx) 04/09/[address] [facility] [address] [address] David Jensen MD 04/09/[address] [address] Sisi Kennedy FNP Seborrheic dermatitis 04/09/2025 Travel 04/09/[address] [address] Mackenzie Estrada MD Nurse Triage 04/07/[address] [address] Mackenzie Estrada MD 04/05/2025 Results Follow-Up [facility] [address] [place] [address] Sisi Kennedy FNP CBC auto differential 04/04/2025 Results Follow-Up [address] [address] Marychuy Bonilla, RHONA XR Elbow 3+ Views Left 04/04/2025 Orders Only GENERIC EXTERNAL DATA DEPARTMENT Provider, Generic External Data 04/03/2025 11:15 AM EDT Office Visit [address] [address] Sisi Kennedy FNP Nodule of skin of both upper extremities (Primary Dx) 04/03/2025 Patient Outreach [facility] [address] [place] [address] Mackenzie Estrada MD Care Coordination (Communication to patient assigned CP Coordinator ) 04/03/2025 Travel 04/02/[address] [address] Sisi Kennedy FNP CHART PREP 03/29/2025 Patient Outreach [facility] [address] [place] [address] Mackenzie Estrada MD Care Coordination (Formerly [facility], [facility]1983 ED Follow Up) 03/29/2025 Patient Outreach [facility] [address] [place] [address] Mackenzie Estrada MD Care Coordination (CP Care Coordination Chart Review) 03/29/2025 Patient Outreach [address] [address] Mackenzie Estrada MD 03/18/[address] [facility] [address] [place] [phone] Livia Amos MD 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/HCC) 03/14/[address] [facility] [address] [place] [address] Livia Amos MD 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/HCC) 03/13/[address] [address] Mackenzie Estrada MD 03/12/2025 9:45 AM EDT Office Visit [facility] [address] [place] [address] Sisi Kennedy FNP Rheumatoid arthritis involving multiple sites with positive rheumatoid factor ([facility]) (Primary Dx); Long-term current use of opiate analgesic; Seborrheic dermatitis 03/12/2025 Travel 03/06/2025 2:00 PM EDT Office Visit [facility] [address] [place] [phone] Livia Hooper MD Inflammatory arthritis (Primary Dx) 03/06/[address] [address] Mackenzie Estrada MD pt1 (PT-1 Request [id number] Pending . For pending submissions, please check the portal periodically for updates. ) 03/06/2025 Telephone [facility] [address] [place] [address] Livia Hooper MD 03/06/2025 Travel 03/05/[address] [facility] [address] [place] [address] Mackenzie Estrada MD Nurse Triage 02/28/2025 Patient Outreach [facility] [address] [place] [address] Mackenzie Estrada MD Care Coordination (CP/ Communication to pt assigned CP Coordinator) 02/21/[address] [facility] [address] [place] [address] Kaylene Samano RN 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) 02/21/[address] 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 [address] [place] [address] Mackenzie Estrada MD 02/19/[address] [facility] [address] [place] [address] Mackenzie Estrada MD 02/18/[address] [facility] [address] [place] [address] Mackenzie Estrada MD 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) 02/18/2025 Orders Only GENERIC EXTERNAL DATA DEPARTMENT Provider, Generic External Data 02/14/[address] [facility] [address] [place] [address] Mackenzie Estrada MD from Last 3 Months Immunizations Immunization Administration [...] F) 05/14/2025 11:21 AM EDT Respiratory Rate 18 04/09/2025 10:4 5 AM EDT Oxygen Saturation 97% 04/09/2025 10: 45 AM EDT Inhaled Oxygen Concentration - - Weight 85.6 kg (188 lb 12.8 oz) 025 10:45 AM EDT Height 157.5 cm (5' 2 ) 05/14/2025 11:2 1 AM EDT Body Mass Index 34.53 04/03/2025 11:38 AM EDT Plan of Treatment Upcoming Encounters Date Type Department Care Team (Late st Contact Info) Description 05/16/2025 10:30 AM EDT Office Visit [facility] [address] [place] [phone] Aura Vu NP [address] [place] [address] 06/07/2025 3:45 PM EST Office Visit [facility] [address] [place] [address] Mackenzie Estrada MD [address] [place] [address] 07/09/2025 9:45 AM EST Office Visit [facility] [address] [place] [address] Health Maintenance Due Date Last Done Comments [...] (HCC) Long-term current use of opiate analgesic GRAM STAIN RESULT (NON ORDERABLE) Routine 04/09/2025 [...] URINE, ROUTINE Routine 02/18/2025 12:00 AM EDT HEPATITIS C ANTIBODY Routine 04/11/2024 [...] Urine Drug Screen (05/14/2025 9:27 AM EDT) Only the most recent of2 resultswithin the time period is included. THC Positive(A) Negative Cocaine Screen, Urine Negative [...] Unknown 05/14/2025 9:27 AM EDT Sisi Kennedy PLATFORM BUILDER POINT OF CARE TEST ENTER/EDIT ORDERABLES Edited Result - Final * Gram Stain Result (04/09/2025 12:20 PM EDT) 04/09/2025 12:2 0 PM EDT 04/10/2025 12:26 PM EDT Comment:Jazmin Lt Narrative [facility] - 04/12/2025 8:06 AM EDT Gram stain results: No polys 1+ epithelial cells No organisms seen Routine Culture No growth after 2 days Specimen Source: Elbow Left David Jensen MD HISTORICAL/NON ORDERABLE LABS Fi nal Result [facility] [address] [place] [address] [phone] * (ABNORMAL) CBC auto differential (04/04/2025 10:30 AM EDT) Only the most recent of4 resultswithin the time period is included. Pathologist [facility] White Blood Count 5.1 4.8 - 10.8 X10*3/uL [facility] Red Blood Count 4.32 4.20 - 5.50 X10*6/uL [facility] Hemoglobin 13.0 12.0 - 16.0 g/dl [facility] Hematocrit 40.1 37.0 - 47.0 % [facility] Mean Corpuscular Volume 92.8 80.0 - 98.0 fL [facility] Mean Corpuscular Hemoglobin 30.1 27.0 - 33.0 pg [facility] Mean Corpuscular HGB Conc 32.4 31.0 - 35.0 g/dl [facility] Red Cell Distribution Width 13.9 11.0 - 16.0 % [facility] Platelet Count 253 160 - 400 X10*3/uL [facility] Mean Platelet Volume 10.5 9.4 - 12.3 fL [facility] Neutrophils Percent Auto 43.5(L) 45 - 73 % [facility] Imm Gran Pct Auto 0.2 0.0 - 0.4 % [facility] Lymphocytes Percent Auto 47.2(H) 20 - 40 % [facility] Monocytes Percent Auto 6.7 2 - 11 % [facility] Eosinophils Percent Auto 2.2 0 - 4 % [facility] Basophils Percent Auto 0.2 0 - 2 % [facility] NRBC Pct Auto 0.0 0.0 - 0.2 /100WBC [facility] Neutrophils Absolute Auto 2.2 2.0 - 8.3 x10*3/uL [facility] Imm Gran Abs Auto 0.01 0.00 - 0.03 X10*3/uL [facility] Lymphocytes Absolute Auto 2.4 1.2 - 4.9 X10*3/uL [facility] Monocytes Absolute Auto 0.3 0.1 - 1.2 X10*3/uL [facility] Eosinophils Absolute Auto 0.1 0.0 - 0.4 X10*3/uL [facility] Basophils Absolute Auto 0.0 0.0 - 0.2 X10*3/uL [facility] NRBC Abs Auto 0.000 0.0 - 0.012 X10*3/uL [facility] 04/04/2025 10:3 0 AM EDT 04/04/2025 11:15 AM EDT us Generic External Data Provider LAB BLOOD ORDERAB LES Final Result [facility] [address] [place] [phone] * Urinalysis w/reflex microscopic (04/04/2025 10:30 AM EDT) Color Urine Yellow [facility] Appearance Urine Clear [facility] PH 5.0 5.0 - 9.0 [facility] Glucose Urine UA Negative Negative mg/dL [facility] Urine Blood Negative Negative [facility] Specific [place] - Urine 1.020 1.005 - 1.025 [facility] Urine Protein Negative Neg-Trace mg/dL [facility] Urine Ketones Negative Negative mg/dL [facility] Nitrite Urine Negative Negative [facility] Leukocyte Esterase Urine Negative Negative [facility] 04/04/2025 10:3 0 AM EDT 04/04/2025 11:09 AM EDT Narrative [facility] - 04/04/2025 11:25 AM EDT Urine, Clean Catch us Generic External Data Provider LAB URINE ORDERAB LES Final Result Performing Organization Address City/[facility]/ZIP Co de Phone Number [facility] [address] [place] [phone] * (ABNORMAL) Uric acid (04/04/2025 10:30 AM EDT) Uric Acid 6.3(H) 2.4 - 5.7 mg/dL [facility] 04/04/2025 10:3 0 AM EDT 04/04/2025 11:15 AM EDT us Generic External Data Provider LAB BLOOD ORDERAB LES Final Result Performing Organization Address City/[facility]/ZIP Co de Phone Number [facility] [address] [place] [phone] * Lactate Dehydrogenase (LD) (04/04/2025 10:30 AM EDT) Lactate Dehydrogenase 130 122 - 220 U/L [facility] 04/04/2025 10:3 0 AM EDT 04/04/2025 11:15 AM EDT Generic External Data Provider LAB BLOOD ORDERAB LES Final Result Performing Organization Address [facility] Co de Phone Number [facility] [address] [place] [phone] * Hepatic Function Panel (04/04/2025 10:30 AM EDT) Only the most recent of2 resultswithin the time period is included. Bilirubin, Direct 0.1 0.0 - 0.5 mg/dL [facility] 04/04/2025 10:3 0 AM EDT 04/04/2025 11:15 AM EDT Generic External Data Provider LAB BLOOD ORDERAB LES Final Result Performing Organization Address [facility] de Phone Number [facility] [address] [place] [phone] * (ABNORMAL) Comprehensive Metabolic Panel (04/04/2025 10:30 AM EDT) Pathologist [facility] Sodium 140 135 - 145 mmol/L [facility] Potassium 3.9 3.3 - 5.1 mmol/L [facility] Chloride 105 96 - 108 mmol/L [facility] Carbon Dioxide 25 22 - 29 mmol/L [facility] Anion Gap 14 12 - 20 [facility] Urea Nitrogen (BUN) 11 9 - 16 mg/dL [facility] Creatinine, Serum 0.63 0.5 - 1.4 mg/dL [facility] Estimated Glomerular Filt Rate >60 [facility] Comment:Chronic Kidney Disea se: Estimated GFR < 60 mL/min/1.19m1Dnzmvl Kidney Disease: Estimated GFR < 15 mL/min/1.73m2 Glucose 87 60 - 115 mg/dL [facility] Calcium 9.7 8.4 - 10.2 mg/dL [facility] Bilirubin, Total 0.5 0.0 - 1.0 mg/dL [facility] Aspartate Amino Transferase 22 5 - 31 U/L [facility] Alanine Aminotransferase 22 0 - 31 U/L [facility] Total Protein 8.6(H) 6.5 - 8.0 g/dL [facility] Albumin Level 4.3 3.5 - 5.0 g/dL [facility] Alkaline Phosphatase 82 39 - 117 U/L [facility] 04/04/2025 10:3 0 AM EDT 04/04/2025 11:15 AM EDT us Generic External Data Provider LAB BLOOD ORDERAB LES Final Result Performing Organization Address City/State/[facility] Co de Phone Number [facility] [address] [place] [phone] * XR Elbow 3+ Views Left (04/04/2025 10:14 AM EDT) Anatomical Region Laterality Modality Upper Extremities, Elbow Left Radiogr aphic Imaging 04/04/2025 10:1 4 AM EDT Narrative 04/04/2025 11:12 AM EDT [address] [address] XRay Report Signed Patient: Ginette Arceo MR #: [id number] : 1975 Acct:[id number] Age/Sex: 49 / F ADM Date: 04/04/25 Loc: HO.HHCX Attending Dr: Marychuy Bonilla NP Ordering Physician: MARYCHUY BONILLA NP Date of Service: 04/04/25 Procedure(s): XR elbow LT min 3V Accession Number(s): [id number] cc: Mackenzie Estrada; MARYCHUY BONILLA NP Reason [...] 04/04/25 1109 DD/ 1014 TD/TT: 04/04/25 1102 Sewer Connector: Procedure Note Donotuseinterpreter, Image - 04/04/[address] [address] XRay Report Signed Patient: Ginette ArceoMR #: [id number] : 1975Acct:[id number] Age/Sex: 49 / FADM Date: 04/04/25 Loc: .HHCX Attending Dr: Marychuy Bonilla NP Ordering Physician: MARYCHUY BONILLA NP Date of Service: 04/04/25 Procedure(s): XR elbow LT min 3V Accession Number(s): [id number] cc: Mackenzie Estrada; MARYCHUY BONILLA NP Reason [...] 04/04/25 1109 DD/ 1014 TD/TT: 04/04/25 1102 Sewer Connector: us Marychuy Bonilla ANP IMG XR PROCEDURES Final Result * (ABNORMAL) Urinalysis, Complete, with Reflex to Culture (02/18/2025 10:44 AM EDT) Color Urine Yellow [facility] Appearance Urine Clear [facility] PH 6.0 5.0 - 9.0 [facility] Glucose Urine UA Negative Negative mg/dL [facility] Urine Blood Negative Negative [facility] Specific [place] - Urine 1.020 1.005 - 1.025 [facility] Urine Protein Negative Neg-Trace mg/dL [facility] Urine Ketones Negative Negative mg/dL [facility] Nitrite Urine Negative Negative [facility] Leukocyte Esterase Urine Small (1+)(A) Negative [facility] RBC Urine 0-2 0 - 2 /HPF [facility] Urine WBC 6-10(A) 0 - 5 /HPF [facility] Urine Squamous Epithelial Cell 11-20 0 - 2 /HPF [facility] Urine Bacteria Trace None Seen [facility] Hyaline Casts, Urine 0-2 0 - 2 /LPF [facility] 02/18/2025 10:4 4 AM EDT 02/18/2025 10:49 AM EDT Narrative [facility] - 02/18/2025 10:57 AM EDT [id number], Clean Catch us Generic External Data Provider LAB URINE ORDERAB LES Final Result [facility] [address] [place] [phone] * VASC US Lower Extremity Venous Duplex Bilateral (02/18/2025 9:50 AM EDT) 02/18/2025 9:50 AM EDT Narrative [facility] - 02/18/2025 10:27 AM EDT [address] [place] [address] Ultrasound Report Signed Patient: Ginette Arceo MR #: [id number] : 1975 Acct:[id number] Age/Sex: 49 / F ADM Date: 02/18/25 Loc: .ED Attending Dr: Ordering Physician: Jana Mcdaniel Date of Service: 02/18/25 Procedure(s): US venous duplex LE BI Accession Number(s): [id number] cc: Mackenzie Estrada; Jana Mcdaniel EXAMINATION: US [...] 02/18/25 1024 DD/ 0950 TD/TT: 02/18/25 1010 Sewer Connector: Procedure Note Donotuseinterpreter, Image - 02/18/[address] [address] Ultrasound Report Signed Patient: Ginette ArceoMR #: [id number] : 1975Acct:[id number] Age/Sex: 49 / FADM Date: 02/18/25 Loc: HO.ED Attending Dr: Ordering Physician: Jana Mcdaniel Date of Service: 02/18/25 Procedure(s): US venous duplex LE BI Accession Number(s): [id number] cc: Mackenzie Estrada; Jana Mcdaniel EXAMINATION: US [...] 02/18/25 1024 DD/ 0950 TD/TT: 02/18/25 1010 Sewer Connector: [facility] External Provider CV VASC ULAR PROCEDURES Final Result [facility] [address] [place] [phone] * High Sensitivity Troponin I (02/18/2025 8:49 AM EDT) Pathologist [facility] TROPONIN I HIGH SENSITIVITY <2.7 <3.5 - 17.0 ng/L [facility] Comment:The Shea high sens itivity Troponin-I results should beused in conjunction with other diagnostic information suchas ECG, clinical observations and information, and patientsymptoms to aid in the diagnosis of [place]. 02/18/2025 8:49 AM EDT 02/18/2025 8:54 AM EDT Generic External Data Provider LAB BLOOD ORDERAB LES Final Result Performing Organization Address [facility] Co de Phone Number [facility] [address] [place] [phone] * SARS-CoV-2 RNA, Influenza A/B, and RSV RNA, Ql NAAT (02/18/2025 8:49 AM EDT) [facility] [address] Influenza A PCR NEGATIVE Negative [facility] Influenza B PCR NEGATIVE Negative [facility] Resp Syncy Virus RNA Qual PCR NEGATIVE Negative [facility] SARS COV2 PCR NEGATIVE Negative [facility] Comment:All test results mus t [...] use by authorized laboratories.Testing performed on the [employer] GeneXpert utilizingreal-time RT-PCR.All SARS CoV2 and positive influenza A/B results arereported to [facility]. 02/18/2025 8:49 AM EDT 02/18/2025 8:54 AM EDT Generic External Data Provider LAB MICROBIOLOGY - GENERAL ORDERABLES Final Result Performing Organization Address [facility]/ZIP Co de Phone Number [facility] [address] [place] [phone] * (ABNORMAL) Sed Rate by Modified Joeyergren (02/18/2025 8:49 AM EDT) Erythrocyte Sedimentation Rate 81(H) 0 - 20 MM/HR [facility] Comment:Patients with polycy themia and many hemoglobin abnormalitiesmay have depressed sed rates whereas patients with anemiamay have elevated sed rates. 02/18/2025 8:49 AM EDT 02/18/2025 8:54 AM EDT us Generic External Data Provider LAB BLOOD ORDERAB LES Final Result Performing Organization Address [facility] Co de Phone Number [facility] [address] [place] [phone] * C-reactive Protein (02/18/2025 8:49 AM EDT) Pathologist [facility] C Reactive Protein 0.44 < or = 0.50 mg/dL [facility] 02/18/2025 8:49 AM EDT 02/18/2025 8:54 AM EDT us Generic External Data Provider LAB BLOOD ORDERAB LES Final Result Performing Organization Address [facility] Co de Phone Number [facility] [address] [place] [phone] * B Type Natriuretic Peptide (BNP) (02/18/2025 8:49 AM EDT) Pathologist [facility] B Type Natriuretic Peptide 48 <100 pg/mL [facility] 02/18/2025 8:49 AM EDT 02/18/2025 8:54 AM EDT us Generic External Data Provider LAB BLOOD ORDERAB LES Final Result Performing Organization Address [facility] Co de Phone Number [facility] [address] [place] [phone] * Magnesium (02/18/2025 8:49 AM EDT) Magnesium 2.2 1.6 - 2.6 mg/dL [facility] 02/18/2025 8:49 AM EDT 02/18/2025 8:54 AM EDT us Generic External Data Provider LAB BLOOD ORDERAB LES Final Result [facility] [address] [place] [phone] [phone] * Basic Metabolic Panel (02/18/2025 8:49 AM EDT) Sodium 140 135 - 145 mmol/L [facility] Potassium 4.6 3.3 - 5.1 mmol/L [facility] Comment:Slight Hemolysis.Int erpret result with caution. Chloride 106 96 - 108 mmol/L [facility] Carbon Dioxide 25 22 - 29 mmol/L [facility] Anion Gap 14 12 - 20 [facility] Urea Nitrogen (BUN) 12 9 - 16 mg/dL [facility] Creatinine, Serum 0.62 0.5 - 1.4 mg/dL [facility] Creatinine Clr Calc Pharmacy 120.9 [facility] Comment:Provided height and weight: 167.64 cm,83.6 kg.eGFR (calculated from the MDRD study equation) and eCrCl(calculated from the Cockcroft-Gault equation) are based ondifferent parameters and may not yield comparable results.If eCrCl result is absurd, please check patient'sheight/weight. Estimated Glomerular Filt Rate >60 [facility] Comment:Chronic Kidney Disea se: Estimated GFR < 60 mL/min/1.96p5Xtpqxz Kidney Disease: Estimated GFR < 15 mL/min/1.73m2 Glucose 101 60 - 115 mg/dL [facility] Calcium 9.6 8.4 - 10.2 mg/dL [facility] 02/18/2025 8:49 AM EDT 02/18/2025 8:54 AM EDT us Generic External Data Provider LAB BLOOD ORDERAB LES Final Result [facility] [address] [place] [address] [phone] * XR Knee 3 Views Left (02/18/2025 8:14 AM EDT) Anatomical Region Laterality Modality Lower Extremities, Knee Left Radiogra phic Imaging 02/18/2025 8:14 AM EDT Narrative 02/18/2025 9:26 AM EDT [place] [address] XRay Report Signed Patient: Ginette Arceo MR #: [id number] : 1975 Acct:[id number] Age/Sex: 49 / F ADM Date: 02/18/25 Loc: HO.ED Attending Dr: Ordering Physician: Jana Mcdaniel Date of Service: 02/18/25 Procedure(s): XR knee LT 3V Accession Number(s): [id number] cc: Mackenzie Estrada; Jana Mcdaniel EXAMINATION: XR [...] in OV> 02/18/25922 DD/ 3 TD/TT: 02/18/25912 Sewer Connector: [facility] Procedure Note Donotuseinterpreter, Image - 02/18/[address] [address] XRay Report Signed Patient: Ginette ArceoMR #: [id number] : 1975Acct:[id number] Age/Sex: 49 / FADM Date: 02/18/25 Loc: HO.ED Attending Dr: Ordering Physician: Jana Mcdaniel Date of Service: 02/18/25 Procedure(s): XR knee LT 3V Accession Number(s): [id number] cc: Mackenzie Estrada; Jana Mcdaniel EXAMINATION: XR [...] OV> 02/18/25922 DD/ 0814 TD/TT: 02/18/25 0913 Sewer Connector: MAGGIE [facility] External Provider IMG XR PROCEDURES Final Result * XR Knee 3 Views Right (02/18/2025 8:11 AM EDT) Anatomical Region Laterality Modality Lower Extremities, Knee Right Radiogra phic Imaging 02/18/2025 8:11 AM EDT Narrative 02/18/2025 9:25 AM EDT [address] [address] XRay Report Signed Patient: Ginette Arceo MR #: [id number] : 1975 Acct:[id number] Age/Sex: 49 / F ADM Date: 02/18/25 Loc: HO.ED Attending Dr: Ordering Physician: Jana Mcdaniel Date of Service: 02/18/25 Procedure(s): XR knee RT 3V Accession Number(s): [id number] cc: Mackenzie Estrada; Jana Mcdaniel EXAMINATION: XR [...] Avelar MD in OV> 02/18/25 09 DD/ 0811 TD/TT: 02/18/25 09 Sewer Connector: MAGGIE Procedure Note Donotuseinterpreter, Image - 02/18/2025 [place] [address] XRay Report Signed Patient: Ginette ArceoMR #: [id number] : 1975Acct:[id number] Age/Sex: 49 / FADM Date: 02/18/25 Loc: .ED Attending Dr: Ordering Physician: Jana Mcdaniel Date of Service: 02/18/25 Procedure(s): XR knee RT 3V Accession Number(s): [id number] cc: Mackenzie Estrada; Jana Mcdaniel EXAMINATION: XR [...] 02/18/25 0922 DD/ 0811 TD/TT: 02/18/25 0913 Sewer Connector: MAGGIE us [facility] External Provider IMG XR PROCEDURES Final Result * XR Hand 3+ Views Right (02/18/2025 8:08 AM EDT) Anatomical Region Laterality Modality Upper Extremities, Hand Right Radiogra phic Imaging 02/18/2025 8:08 AM EDT Narrative 02/18/2025 9:30 AM EDT [address] [address] XRay Report Signed Patient: Ginette Arceo MR #: [id number] : 1975 Acct:[id number] Age/Sex: 49 / F ADM Date: 02/18/25 Loc: HO.ED Attending Dr: Ordering Physician: Jana Mcdaniel Date of Service: 02/18/25 Procedure(s): XR hand RT min 3V Accession Number(s): [id number] cc: Mackenzie Estrada; Jana Mcdaniel EXAMINATION: XR [...] in OV> 02/18/25926 DD/ 08 TD/TT: 02/18/25912 Sewer Connector: [facility] Procedure Note Donotuseinterpreter, Image - 02/18/[address] [address] XRay Report Signed Patient: Ginette ArceoMR #: [id number] : 1975Acct:[id number] Age/Sex: 49 / FADM Date: 02/18/25 Loc: HO.ED Attending Dr: Ordering Physician: Jana Mcdaniel Date of Service: 02/18/25 Procedure(s): XR hand RT min 3V Accession Number(s): [id number] cc: Mackenzie Estrada; Jana Mcdaniel EXAMINATION: XR [...] OV> 02/18/25926 DD/ 0808 TD/TT: 02/18/25 0913 Sewer Connector: [facility] External Provider IMG XR PROCEDURES Final Result * Culture, Urine, Routine (02/18/2025 12:00 AM EDT) Urine Urine specimen obtained by clean catch procedure / Unknown 02/18/2025 02/18/2025 Comment:CC Narrative [facility] - 02/19/2025 9:03 AM EDT Strep agalactiae (Grp B) Quant 50,000 to 100,000 cfu/mL Susc N/A Susceptibility not routinely performed on this isolate. Specimen Source: Urine clean catch us Generic External Data Provider LAB MICROBIOLOGY - GENERAL ORDERABLES Final Result Performing Organization Address [facility]/ZIP Co de Phone Number [facility] [address] [place] [phone] * Hepatitis C Ab (04/11/2024 10:26 AM EDT) Hepatitis C Antibody Nonreactive Nonreactive [facility] Comment:Antibodies to HCV no t detected; does not exclude early acuteHCV infection. Blood Venous blood specimen / Unknown 04/11/2024 10:26 AM EDT 04/11/2024 11:19 AM EDT Mackenzie Estrada MD LAB BLOOD ORDERABLES Final Res ult Performing Organization Address [facility] Co de Phone Number [facility] [address] [place] [phone] * HIV-1/2 Antigen and Antibodies, Fourth Generation, with Reflexes (04/11/2024 10:26 AM EDT) HIV AB/AG Nonreactive Nonreactive [facility] Comment:HIV-1 p24 Ag and/or HIV-1/HIV-2 Ab not detected.A test result that is nonreactive does not exclude thepossibility of exposure to or infection with HIV-1 and/orHIV-2. Nonreactive results in this assay for individualswith prior exposure to HIV-1 and/or HIV-2 may be due toantigen and antibody levels that are below the limit ofdetection of this assay.The [employer] HIV Ag/Ab Combo assay result andsupplemental assay results should be interpreted inconjunction with the patient's clinical presentation,history and other laboratory results. If the results areinconsistent with clinical evidence, additional testing issuggested to confirm the result. Blood Venous blood specimen / Unknown 04/11/2024 10:26 AM EDT 04/11/2024 11:19 AM EDT Mackenzie Estrada MD LAB BLOOD ORDERABLES Final Res ult Performing Organization Address [facility] Co de Phone Number [facility] [address] [place] [phone] * HPV mRNA E6/E7 w/Reflex to [...] alternative testing options.For additional information, please refer tohttp://education.[employer]faq/KBS795y5(This link if provided for information/educational purposes only.)THIS TEST WAS PERFORMED AT:[employer] [place] [phone] GALVAN MD HPV mRNA E6/E7 [facility] HPV 16 RNA [facility] HPV 18/45 RNA [facility] 09/29/2023 12:2 6 PM EST 09/30/2023 11:30 AM EST Mackenzie Estrada MD LAB CYTOLOGY ORDERABLES Final Result Performing Organization Address [facility]/ZIP Co de Phone Number [facility] [address] [place] [phone] * Pap Smear (09/29/2023 12:26 PM EST) 09/29/2023 12:2 6 PM EST 09/30/2023 11:30 AM EST Narrative [facility] - 10/12/2023 4:18 PM EDT ----- ------- Name: Ginette Arceo Age/Sex: 48/F : 1975 Unit#: [id number] Attend Dr: Mackenzie Estrada Re09/29/23 Status: [facility] Disch: ----- ------- SPEC : [id number] RECD: 09/30/23-1130 STATUS: NIRMALA PEREZ NUM: [id number] BHAVIN: 09/29/23-[address] [facility] [address]: Mackenzie Estrada ENTERED: 09/30/23-1325 SP TYPE: Pap Smr OTHR DR: ORDERED: Pap Smear Interpretation Satisfactory for evaluation. Negative for intraepithelial lesion or malignancy. HPV mRNA E6/E7: NOT DETECTED This assay detects E6/E7 viral messenger RNA (mRNA) from 14 high-risk HPV types (16, 18, 31, 33, 35, 39, 45, 51, 52, 56, 58, 59, 66, 68) HPV testing performed by [employer], [place], [place]. See reference laboratory portion of the EMR for entire report. Clinical Information LMP: Heavy menstrual bleeding past two weeks Previous PAP test: Unknown date/findings Other history: Material Received ThinPrep-Cervical ----- ------- Signed (signature on file) BARB Hawley ([facility]) 10/12/23 1618 ----- ------- END OF REPORT us Mackenzie Estrada MD LAB CYTOLOGY ORDERABLES Final Result [facility] [address] [place] [phone] * Mammography Report 1 (10/09/2021 12:05 [...] Friedewald equation in the estimation of LDL-C. iH COELLO et al. ROXY. 2013;310(19): 1790-1642 (http://education.[employer]/faq/XBN888) Non-HDL Cholesterol 175(H) <130 mg/dL (calc) FOUNDATION [...] [facility] [address] * Colonoscopy (10/28/2017) Colonoscopy Normal Normal Narrative Cecilia Henriquez - 10/28/2017 Recommended 10 year follow up ([facility]) Historical Provider HEALTH MAINTENANCE Edited Result - Final from Last 3 Months or Most Recently Relevant to Health Maintenance Insurance [employer] ADULT Care Teams Looper Fixer Relationship Specialty Start Date End Date Mackenzie Estrada MD [address] [place] [phone] PCP - General Family Medicine 07/10/20 Hemalatha Pretty Technical CommunicatorLine Installation Supervisor 01/02/25
--- OUTSIDE RECORDS SUMMARY | 2025-05-14 20:43 | XMS_ITS | Clinical Summary ---
Author Organization [facility] Address [address] [place] [address] Support Name Relationship Address Phone Brayden Hernandez Emergency Contact [address] [place] [address] Care Team Providers Care Performance Analyst Name Role Phone Abdullahi Lizarraga MD Primary Care Provider [phone] Allergies Active Allergy Reactions Criticality Noted Date [...] age to complete this topic Care Teams Performance Analyst Relationship Specialty Start Date End Date Abdullahi Lizarraga MD [address] [place] [address] PCP - General Nephrology 03/10/18
--- OUTSIDE RECORDS SUMMARY | 2025-05-14 20:43 | XMS_ITS | Encounter Summary ---
Author Organization [employer] Address [address] [facility] 7t [place] [address] Care Team Providers Care Slab Puller Name Role Phone Mackenzie Estrada MD Primary Care Provider [phone] Casper Magaña RN Unavailable [phone] Ruth Ann Price Unavailable Unavailable Ruth Ann Price Unavailable Ruth Ann Price Unavailable Reason for Visit * Reason Comments Med Refill Encounter Details Date Type Department Care Team ([facility] Contact Info) Description 09/22/2022 Refill [facility] [address] [place] [address] Sarika Palacios, RHONA [address] [place] [address] Tinea pedis of both feet Social History [...] Upcoming Encounters Date Type Department Care Team ([facility] Contact Info) Description 05/16/2025 10:30 AM EDT Office Visit [address] [address] Aura Vu NP [address] [place] [address] 06/07/2025 3:45 PM EST Office Visit [address] [phone] Mackenzie Estrada MD [address] [place] [address] 07/09/2025 9:45 AM EST Office Visit [address] [address] documented as of this encounter Visit Diagnoses Diagnosis Tinea pedis of both feet documented in this encounter Care Teams Slab Puller Relationship Specialty Start Date End Date Mackenzie Estrada MD [address] [place] [address] [phone] PCP - General Family Medicine 07/10/20 Casper Magaña, RN [address] [place] [address] Registered Nurse Family Medicine 01/18/25 01/18/25 Ruth Ann Price 02/19/25 02/19/25 Ruth Ann Price 02/19/25 02/28/25 Ruth Ann Price 03/29/25 04/03/25 Hemalatha Pretty Infantry Unit LeaderAudio Visual Manager 01/02/25 documented as of this encounter
--- OUTSIDE RECORDS SUMMARY | 2025-05-14 20:43 | XMS_ITS | Encounter Summary ---
Author Organization [employer] Address [address] [facility] 7t [place] [address] Care Team Providers Care Employee Benefits Specialist Name Role Phone Mackenzie Estrada MD Primary Care Provider [phone] Casper Magaña RN Unavailable [phone] Ruth Ann Price Unavailable Unavailable Ruth Ann Price Unavailable Ruth Ann Price Unavailable Reason for Visit * Reason Onset Date Comments Error 08/16/2023 Encounter Details Date Type Department Care Team ([facility] st Contact Info) Description 08/16/2023 Telephone [facility] [address] [place], [place] [phone] Mackenzie Estrada MD [address] [place], [place] [phone] Error Social History Tobacco Use Types Packs/Day [...] Description 05/16/2025 10:30 AM EDT Office Visit [address] [address] Aura Vu NP [address] [place] [address] 06/07/2025 3:45 PM EST Office Visit [address] [address] Mackenzie Estrada MD [address] [place] [address] 07/09/2025 9:45 AM EST Office Visit [address] [address] documented as of this encounter Goals Goal Patient Goal Type Associated Problems Recent Progress Patient-Stated? Author Quit using tobacco (cigarettes, smokeless, etc) Tobacco Use Corey Cornell, KelechiD documented as of this encounter Visit Diagnoses Not on filedocumented in this encounter Care Teams Employee Benefits Specialist Relationship Specialty Start Date End Date Mackenzie Estrada MD [address] [place] [address] PCP - General Family Medicine 07/10/20 Casper Magaña, RN [address] [place] [address] Registered Nurse Family Medicine 01/18/25 01/18/25 Ruth Ann Price 02/19/25 02/19/25 Ruth Ann Price 02/19/25 02/28/25 Ruth Ann Price 03/29/25 04/03/25 Hemalatha Pretty Cellar WorkerSupplier Engineer 01/02/25 documented as of this encounter
--- OUTSIDE RECORDS SUMMARY | 2025-05-14 20:43 | XMS_ITS | Encounter Summary ---
Author Organization [employer] Address [address] [facility] 7t [place] [address] Care Team Providers Care Gift Consultant Name Role Phone Mackenzie Estrada MD Primary Care Provider [phone] Casper Magaña RN Unavailable [phone] Ruth Ann Price Unavailable Unavailable Ruth Ann Price Unavailable Ruth Ann Price Unavailable Reason for Visit * Reason Comments Med Refill Encounter Details Date Type Department Care Team (Late st Contact Info) Description 06/03/2023 Refill [facility] [address] [place] [address] Mackenzie Estrada MD [address] [place], [place] [phone] Pain in both hands Social History Tobacco [...] Description 05/16/2025 10:30 AM EDT Office Visit [address] [address] Aura Vu NP [address] [place] [address] 06/07/2025 3:45 PM EST Office Visit [address] [address] Mackenzie Estrada MD [address] [place] [address] 07/09/2025 9:45 AM EST Office Visit [address] [address] documented as of this encounter Goals Goal Patient Goal Type Associated Problems Recent Progress Patient-Stated? Author Quit using tobacco (cigarettes, smokeless, etc) Tobacco Use No Corey Lin, KelechiD documented as of this encounter Visit Diagnoses Diagnosis Pain in both hands documented in this encounter Care Teams Gift Consultant Relationship Specialty Start Date End Date Mackenzie Estrada MD [address] [place] [address] PCP - General Family Medicine 07/10/20 Casper Magaña, RN [address] [place] [address] [place] [address] Registered Nurse Family Medicine 01/18/25 01/18/25 Ruth Ann Price 02/19/25 02/19/25 Ruth Ann Price 02/19/25 02/28/25 Ruth Ann Price 03/29/25 04/03/25 Hemalatha Pretty Production Staff WorkerShift Superintendent Caustic Cresylate 01/02/25 documented as of this encounter
--- OUTSIDE RECORDS SUMMARY | 2025-05-14 20:43 | XMS_ITS | Encounter Summary ---
Author Organization [employer] Address [address] [facility] [address]t [place] [address] Care Team Providers Care Riveter Pneumatic Name Role Phone Mackenzie Estrada MD Primary Care Provider [phone] Casper Magaña RN Unavailable [phone] Ruth Ann Price Unavailable Unavailable Ruth Ann Price Unavailable Ruth Ann Price Unavailable Reason for Visit * Reason Comments Med Refill Encounter Details Date Type Department Care Team (Late st Contact Info) Description 07/28/2022 Refill [facility] [address] [place] [address] Mackenzie Estrada MD [address] [place] [address] Pain in both hands Social History Tobacco [...] Description 05/16/2025 10:30 AM EDT Office Visit [address] [address] Aura Vu NP [address] [place] [address] 06/07/2025 3:45 PM EST Office Visit [address] [phone] Mackenzie Estrada MD [address] [place] [address] [phone] 07/09/2025 9:45 AM EST Office Visit [address] [address] documented as of this encounter Visit Diagnoses Diagnosis Pain in both hands documented in this encounter Care Teams Riveter Pneumatic Relationship Specialty Start Date End Date Mackenzie Estrada MD [address] [place] [address] PCP - General Family Medicine 07/10/20 Casper Magaña, RN [address] [place] [address] Registered Nurse Family Medicine 01/18/25 01/18/25 Ruth Ann Price 02/19/25 02/19/25 Ruth Ann Price 02/19/25 02/28/25 Ruth Ann Price 03/29/25 04/03/25 Hemalatha Pretty Home DesignerCrematory Attendant 01/02/25 documented as of this encounter
--- OUTSIDE RECORDS SUMMARY | 2025-05-14 20:43 | XMS_ITS | Encounter Summary ---
Author Organization [employer] Address [address] [facility] [address] [place] [address] Care Team Providers Care District Home Economics Agent Name Role Phone Mackenzie Estrada MD Primary Care Provider [phone] Casper Magaña RN Unavailable [phone] Ruth Ann Price Unavailable Unavailable Ruth Ann Price Unavailable Ruth Ann Price Unavailable Encounter Details Date Type Department Care Team (Late st Contact Info) Description 06/01/2023 Orders Only [facility] [address] [place] [address] Mackenzie Estrada MD [address] [place] [address] Encounter for smoking cessation counseling (Primary Dx) [...] Description 05/16/2025 10:30 AM EDT Office Visit [address] [address] Aura Vu NP [address] [place] [address] 06/07/2025 3:45 PM EST Office Visit [address] [address] Mackenzie Estrada MD [address] [place] [address] 07/09/2025 9:45 AM EST Office Visit [address] [address] documented as of this encounter Goals Goal Patient Goal Type Associated Problems Recent Progress Patient-Stated? Author Quit using tobacco (cigarettes, smokeless, etc) Tobacco Use Corey Cornell, PharmD documented as of this encounter Visit Diagnoses Diagnosis Encounter for smoking cessation counseling- Primary documented in this encounter Care Teams District Home Economics Agent Relationship Specialty Start Date End Date Mackenzie Estrada MD [address] [place] [address] PCP - General Family Medicine 07/10/20 Casper Magaña, RN [address] [place] [address] [place] [address] Registered Nurse Family Medicine 01/18/25 01/18/25 Ruth Ann Price 02/19/25 02/19/25 Ruth Ann Price 02/19/25 02/28/25 Ruth Ann Price 03/29/25 04/03/25 Hemalatha Pretty Tar Pot ManLegal Office Administrator 01/02/25 documented as of this encounter
--- OUTSIDE RECORDS SUMMARY | 2025-05-14 20:43 | XMS_ITS | Encounter Summary ---
Author Organization [employer] Address [address] [facility] 7t [place] [address] Care Team Providers Care Life Scientist Name Role Phone Mackenzie Estrada MD Primary Care Provider [phone] Casper Magaña RN Unavailable [phone] Ruth Ann Price Unavailable Unavailable Ruth Ann Price Unavailable Ruth Ann Price Unavailable Reason for Visit * Reason Onset Date Comments Hospital Follow-up 02/24/2024 Encounter Details Date Type Department Care Team ([facility] st Contact Info) Description 02/24/2024 Telephone [facility] 230 [place], [place] [phone] Mackenzie Estrada MD 230 [place], [place] [phone] Hospital Follow-up Social History Tobacco Use Types [...] t he electric, gas, oil or water [employer] threatened to shut off services in your [...] from pt requesting a HDF appt. Hospital: [facility] Date of admission: 02/19 Discharge date: 02/23 Diagnosed: Rectal Bleeding Hong Konger Speaker documented in this encounter Plan of Treatment Upcoming Encounters Date Type Department Care Team (Late st Contact Info) Description 05/16/2025 10:30 AM EDT Office Visit [facility] [address] [place] [address] Aura Vu NP 230 [place] [address] 06/07/2025 3:45 PM EST Office Visit [facility] [address] [place] [address] Mackenzie Estrada MD 230 [place] [address] 07/09/2025 9:45 AM EST Office Visit [facility] 230 [place] [address] documented as of this encounter Goals Goal Patient Goal Type Associated Problems Recent Progress Patient-Stated? Author Quit using tobacco (cigarettes, smokeless, etc) Tobacco Use No Corey Lin, Bailey documented as of this encounter Visit Diagnoses Not on filedocumented in this encounter Care Teams Life Scientist Relationship Specialty Start Date End Date Makcenzie Estrada MD 230 [place] [address] PCP - General Family Medicine 07/10/20 Casper Magaña RN [address] [place] [address] Registered Nurse Family Medicine 01/18/25 01/18/25 Ruth Ann Price 02/19/25 02/19/25 Ruth Ann Price 02/19/25 02/28/25 Ruth Ann Price 03/29/25 04/03/25 Hemalatha Pretty Driller MachineHospice Fellow 01/02/25 documented as of this encounter
--- OUTSIDE RECORDS SUMMARY | 2025-05-14 20:43 | XMS_ITS | Encounter Summary ---
Author Organization [employer] Address [address] [facility] [address] 7t [place] [address] Care Team Providers Care Childcare Worker Name Role Phone Mackenzie Estrada MD Primary Care Provider [phone] Casper Magaña RN Unavailable [phone] Ruth Ann Price Unavailable Unavailable Ruth Ann Price Unavailable Ruth Ann Price Unavailable Encounter Details Date Type Department Care Team (Late st Contact Info) Description 04/10/2024 Orders Only [facility] [address] [place] [address] Mackenzie Estrada MD 230 [place] [address] Social History Tobacco Use Types Packs/Day Years [...] Description 05/16/2025 10:30 AM EDT Office Visit [address] [address] Aura Vu NP [address] [place] [address] 06/07/2025 3:45 PM EST Office Visit [address] [address] Mackenzie Estrada MD [address] [place] [address] 07/09/2025 9:45 AM EST Office Visit [address] [address] documented as of this encounter Goals Goal Patient Goal Type Associated Problems Recent Progress Patient-Stated? Author Quit using tobacco (cigarettes, smokeless, etc) Tobacco Use No Corey Lin, Bailey documented as of this encounter Visit Diagnoses Not on filedocumented in this encounter Care Teams Childcare Worker Relationship Specialty Start Date End Date Mackenzie Estrada MD [address] [place] [address], [place] [address] PCP - General Family Medicine 07/10/20 Casper Magaña, RN [address] [place] [address] Registered Nurse Family Medicine 01/18/25 01/18/25 Ruth Ann Price 02/19/25 02/19/25 Ruth Ann Price 02/19/25 02/28/25 Ruth Ann Price 03/29/25 04/03/25 Hemalatha Pretty Ore ChargerComputing Tutor 01/02/25 documented as of this encounter
--- OUTSIDE RECORDS SUMMARY | 2025-05-14 20:43 | XMS_ITS | Encounter Summary ---
Author Organization [employer] Address 75 [facility] 7t [place] [address] Care Team Providers Care Student Life Dean Name Role Phone Mackenzie Estrada MD Primary Care Provider [phone] Casper Magaña RN Unavailable [phone] Ruth Ann Price Unavailable Unavailable Ruth Ann Price Unavailable Ruth Ann Price Unavailable Encounter Details Date Type Department Care Team (Late Contact Info) Description 03/29/[address] [facility] 230 [place], [place] [phone] Cecilia Henriquez Social History Tobacco Use Types [...] Department Care Team (Late Contact Info) Description 05/16/2025 10:30 AM EDT Office Visit [facility] 230 [place], [place] [phone] Aura Vu NP 230 [place], [place] [phone] 06/07/2025 3:45 PM EST Office Visit [address] [address] Mackenzie Estrada MD [address] [place] [address] 07/09/2025 9:45 AM EST Office Visit [address] [address] documented as of this encounter Procedures Procedure Name Priority Date/Time Associated Diagnosis Comments COLONOSCOPY Routine 10/28/2017 documented in this encounter Results * Colonoscopy (10/28/2017) Colonoscopy Normal Normal Narrative Cecilia Henriquez - 10/28/2017 Recommended 10 year follow up ([facility]) [place] Historical Provider [employer] MAINTENANCE Edited Result - Final documented in this encounter Visit Diagnoses Not on filedocumented in this encounter Care Teams Student Life Dean Relationship Specialty Start Date End Date Mackenzie Estrada MD [address] [place] [address] PCP - General Family Medicine 07/10/20 Casper Magaña, JENNIFER [address] [place] [address] Registered Nurse Family Medicine 01/18/25 01/18/25 Ruth Ann Price 02/19/25 02/19/25 Ruth Ann Price 02/19/25 02/28/25 Ruth Ann Price 03/29/25 04/03/25 Hemalatha Pretty Booster Station OperatorPhp Architect 01/02/25 documented as of this encounter
--- OUTSIDE RECORDS SUMMARY | 2025-05-14 20:43 | XMS_ITS | Encounter Summary ---
Author Organization [employer] Address 75 [facility] 7t [place] [address] Care Team Providers Care Horticultural Farm Manager Name Role Phone Mackenzie Estrada MD Primary Care Provider [phone] Casper Magaña RN Unavailable [phone] Ruth Ann Price Unavailable Unavailable Ruth Ann Price Unavailable Ruth Ann Price Unavailable Reason for Visit * Reason Comments Med Refill Encounter Details Date Type Department Care Team (Late st Contact Info) Description 07/21/2023 Refill [facility] 230 [place] [address] Name, MD Mark 230 [place] [address] Pain in both hands Social History Tobacco [...] Description 05/16/2025 10:30 AM EDT Office Visit [address] [address] Aura Vu NP [address] [place] [address] 06/07/2025 3:45 PM EST Office Visit [address] [address] Mackenzie Estrada MD [address] [place] [address] 07/09/2025 9:45 AM EST Office Visit [address] [address] documented as of this encounter Goals Goal Patient Goal Type Associated Problems Recent Progress Patient-Stated? Author Quit using tobacco (cigarettes, smokeless, etc) Tobacco Use No Corey Lin, Bailey documented as of this encounter Visit Diagnoses Diagnosis Pain in both hands documented in this encounter Care Teams Horticultural Farm Manager Relationship Specialty Start Date End Date Mackenzie Estrada MD [address] [place] [address] PCP - General Family Medicine 07/10/20 Casper Magaña, RN [address] [place] [address] [place]AH[place] Conn [address] Registered Nurse Family Medicine 01/18/25 01/18/25 Ruth Ann Price 02/19/25 02/19/25 Ruth Ann Price 02/19/25 02/28/25 Ruth Ann Price 03/29/25 04/03/25 Hemalatha Pretty Microfilming Document PreparerSaw Operator 01/02/25 documented as of this encounter
--- OUTSIDE RECORDS SUMMARY | 2025-05-14 20:43 | XMS_ITS | Encounter Summary ---
Author Organization [employer] Address [address] [facility] [address] 7t [place] [address] Care Team Providers Care Home Health Clinician Name Role Phone Mackenzie Estrada MD Primary Care Provider [phone] Casper Magaña RN Unavailable [phone] Ruth Ann Price Unavailable Unavailable Ruth Ann Price Unavailable Ruth Ann Price Unavailable Encounter Details Date Type Department Care Team (Late st Contact Info) Description 05/21/2024 Telephone [facility] 230 [place] [address] Mackenzie Estrada MD 230 [place] [address] Social History Tobacco Use Types Packs/Day Years [...] 05/16/2025 10:30 AM EDT Office Visit [facility] [address] [place] [address] Aura Vu NP [address] [place] [address] 06/07/2025 3:45 PM EST Office Visit [address] [address] Mackenzie Estrada MD [address] [place] [address] 07/09/2025 9:45 AM EST Office Visit [address] [address] documented as of this encounter Goals Goal [...] documented as of this encounter Care Teams Home Health Clinician Relationship Specialty Start Date End Date Mackenzie Estrada MD 230 [place] [address] PCP - General Family Medicine 07/10/20 Casper Magaña, JENNIFER 505 [place] [address] Registered Nurse Family Medicine 01/18/25 01/18/25 Ruth Ann Price 02/19/25 02/19/25 Ruth Ann Price 02/19/25 02/28/25 Ruth Ann Price 03/29/25 04/03/25 Hemalatha Pretty Battalion Fire ChiefHuman Resources Trainee 01/02/25 documented as of this encounter
--- OUTSIDE RECORDS SUMMARY | 2025-05-14 20:43 | XMS_ITS | Encounter Summary ---
Author Organization [employer] Address 75 [facility] 7t [place] [address] Care Team Providers Care Market Superintendent Name Role Phone Mackenzie Estrada MD Primary Care Provider [phone] Casper Magaña RN Unavailable [phone] Ruth Ann Price Unavailable Unavailable Ruth Ann Price Unavailable Ruth Ann Price Unavailable Reason for Visit * Reason Comments Med Refill Encounter Details Date Type Department Care Team ([facility] Contact Info) Description 08/25/2022 Refill [facility] 230 [place] [address] Mackenzie Estrada MD 230 [place] [address] Pain in both hands Social History Tobacco [...] Team ([facility] Contact Info) Description 05/16/2025 10:30 AM EDT Office Visit [address] [address] Aura Vu NP 230 [place] [address] 06/07/2025 3:45 PM EST Office Visit [address] [address] Mackenzie Estrada MD [address] [place] [address] 07/09/2025 9:45 AM EST Office Visit [address] [address] documented as of this encounter Visit Diagnoses Diagnosis Pain in both hands documented in this encounter Care Teams Market Superintendent Relationship Specialty Start Date End Date Mackenzie Estrada MD [address] [place] [address] PCP - General Family Medicine 07/10/20 Casper Magaña, JENNIFER [address] [place] [address] Registered Nurse Family Medicine 01/18/25 01/18/25 Ruth Ann Price 02/19/25 02/19/25 Ruth Ann Price 02/19/25 02/28/25 Ruth Ann Price 03/29/25 04/03/25 Hemalatha Pretty Industrial Diamond PolisherLicensed Master Social Worker 01/02/25 documented as of this encounter
--- OUTSIDE RECORDS SUMMARY | 2025-05-14 20:43 | XMS_ITS | Encounter Summary ---
Author Organization [employer] Address [address] [facility] [address] 7t [place] [address] Care Team Providers Care Manager Of Case Management Name Role Phone Mackenzie Estrada MD Primary Care Provider [phone] Casper Magaña RN Unavailable [phone] Ruth Ann Price Unavailable Unavailable Ruth Ann Price Unavailable Ruth Ann Price Unavailable Encounter Details Date Type Department Care Team (Late st Contact Info) Description 05/10/2024 Orders Only [facility] 230 [place] [address] Mackenzie Estrada MD 230 [place] [address] Social History Tobacco Use Types Packs/Day Years [...] Description 05/16/2025 10:30 AM EDT Office Visit [facility] [address] [place] [address] Aura Vu NP [address] [place] [address] 06/07/2025 3:45 PM EST Office Visit [address] [address] Mackenzie Estrada MD [address] [place] [address] 07/09/2025 9:45 AM EST Office Visit [address] [address] documented as of this encounter Goals Goal [...] as of this encounter Care Teams Manager Of Case Management Relationship Specialty Start Date End Date Mackenzie Estrada MD 230 [place] [address] PCP - General Family Medicine 07/10/20 Casper Magaña RN 505 [place] [address] Registered Nurse Family Medicine 01/18/25 01/18/25 Ruth Ann Price 02/19/25 02/19/25 Ruth Ann Price 02/19/25 02/28/25 Ruth Ann Price 03/29/25 04/03/25 Hemalatha Pretty Strategic Solutions ConsultantPc Analyst 01/02/25 documented as of this encounter
--- OUTSIDE RECORDS SUMMARY | 2025-05-14 20:43 | XMS_ITS | Encounter Summary ---
Author Organization [employer] Address 75 [facility] 7t [place] [address] Care Team Providers Care Human Resource Officer Name Role Phone Mackenzie Estrada MD Primary Care Provider [phone] Casper Magaña RN Unavailable [phone] Ruth Ann Price Unavailable Unavailable Ruth Ann Price Unavailable Ruth Ann Price Unavailable Reason for Visit * Reason Comments Med Refill Encounter Details Date Type Department Care Team (Late st Contact Info) Description 07/20/2024 Refill [facility] 230 [place] [address] Mackenzie Estrada MD 230 [place] [address] 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 ([facility]) Social History Tobacco Use Types Packs/Day [...] Description 05/16/2025 10:30 AM EDT Office Visit [address] [address] Aura Vu NP [address] [place] [address] 06/07/2025 3:45 PM EST Office Visit [address] [address] Mackenzie Estrada MD [address] [place] [address] 07/09/2025 9:45 AM EST Office Visit [address] [address] documented as of this encounter Goals Goal [...] documented as of this encounter Care Teams Human Resource Officer Relationship Specialty Start Date End Date Mackenzie Estrada MD 230 [place] [address] PCP - General Family Medicine 07/10/20 Casper Magaña, JENNIFER 505 [place] [address] Registered Nurse Family Medicine 01/18/25 01/18/25 Ruth Ann Price 02/19/25 02/19/25 Ruth Ann Price 02/19/25 02/28/25 Ruth Ann Price 03/29/25 04/03/25 Hemalatha Pretty Project SpecialistDye And Chemical Coordinator 01/02/25 documented as of this encounter
--- OUTSIDE RECORDS SUMMARY | 2025-05-14 20:43 | XMS_ITS | Encounter Summary ---
Author Organization [employer] Address 75 [facility] 7t [place] [address] Care Team Providers Care Senior Label Specialist Name Role Phone Mackenzie Estrada MD Primary Care Provider [phone] Casper Magaña RN Unavailable [phone] Ruth Ann Price Unavailable Unavailable Ruth Ann Price Unavailable Ruth Ann Price Unavailable Reason for Visit * Reason Comments Med Refill Encounter Details Date Type Department Care Team (Late st Contact Info) Description 07/27/2023 Refill [facility] 230 [place] [address] Name, MD Mark 230 [place] [address] Pain in both hands Social History Tobacco [...] Description 05/16/2025 10:30 AM EDT Office Visit [address] [address] Aura Vu NP [address] [place] [address] 06/07/2025 3:45 PM EST Office Visit [address] [address] Mackenzie Estrada MD [address] [place] [address] 07/09/2025 9:45 AM EST Office Visit [address] [address] documented as of this encounter Goals Goal Patient Goal Type Associated Problems Recent Progress Patient-Stated? Author Quit using tobacco (cigarettes, smokeless, etc) Tobacco Use No Corey Lin, Bailey documented as of this encounter Visit Diagnoses Diagnosis Pain in both hands documented in this encounter Care Teams Senior Label Specialist Relationship Specialty Start Date End Date Mackenzie Estrada MD [address] [place] [address] PCP - General Family Medicine 07/10/20 Casper Magaña, RN [address] [place] [address] ZAHRA Conn [address] Registered Nurse Family Medicine 01/18/25 01/18/25 Ruth Ann Price 02/19/25 02/19/25 Ruth Ann Price 02/19/25 02/28/25 Ruth Ann Price 03/29/25 04/03/25 Hemalatha Pretty Perishable Fruit InspectorPassenger Flagman 01/02/25 documented as of this encounter
--- OUTSIDE RECORDS SUMMARY | 2025-05-14 20:43 | XMS_ITS | Encounter Summary ---
Author Organization [employer] Address 75 [facility] 7t [place] [address] Care Team Providers Care Research Laboratory Specialist Name Role Phone Mackenzie Estrada MD Primary Care Provider Casper Magaña RN Unavailable [phone] Ruth Ann Price Unavailable Unavailable Ruth Ann Price Unavailable Ruth Ann Price Unavailable Reason for Visit * Reason Onset Date Comments Appointment Request 08/16/2023 Encounter Details Date Type Department Care Team ([facility] st Contact Info) Description 08/16/2023 Telephone [facility] 230 [place], [place] [phone] Mackenzie Estrada MD 230 [place], [place] [phone] Appointment Request Social History Tobacco Use Types [...] in message prior. * Telephone Encounter - Vonnieanderson Zhang Chance - 08/16/2023 9:39 AM EST Tc from pt requesting if there is anything available for today to be seen today. Please contact pt @ [phone] Indonesian Speaker documented in this encounter Plan of Treatment Upcoming Encounters Date Type Department Care Team (Late st Contact Info) Description 05/16/2025 10:30 AM EDT Office Visit [facility] 230 [place] [address] Aura Vu NP 230 [place] [address] 06/07/2025 3:45 PM EST Office Visit [address] [address] Mackenzie Estrada MD [address] [place] [address] 07/09/2025 9:45 AM EST Office Visit [address] [address] documented as of this encounter Goals Goal Patient Goal Type Associated Problems Recent Progress Patient-Stated? Author Quit using tobacco (cigarettes, smokeless, etc) Tobacco Use No Corey Lin, Bailey documented as of this encounter Visit Diagnoses Not on filedocumented in this encounter Care Teams Research Laboratory Specialist Relationship Specialty Start Date End Date Mackenzie Estrada MD [address] [place] [address] PCP - General Family Medicine 07/10/20 Casper Magaña, JENNIFER [address] [place] [address] Registered Nurse Family Medicine 01/18/25 01/18/25 Ruth Ann Price 02/19/25 02/19/25 Ruth Ann Price 02/19/25 02/28/25 Ruth Ann Price 03/29/25 04/03/25 Hemalatha Pretty Refinery Operator Crude UnitBurnisher 01/02/25 documented as of this encounter
== END 2025-05-14 20:36 | disposition left against medical advice (07) ==
LOC: HO.ED 20:38
PROVIDERS: Registered Nurse Emergency; Emergency Provider Emergency Medicine
DX: R07.9 Chest pain, unspecified (principal); K21.9 Gastro-esophageal reflux disease without esophagitis; M79.7 Fibromyalgia; Z86.718 Personal history of other venous thrombosis and embolism; Z86.79 Personal history of other diseases of the circulatory system; Z53.21 Procedure and treatment not carried out due to patient leaving prior to being seen by health care provider
CPT/HCPCS: 36415; 71046; 80053; 83880; 84484; 85025; 85610; 93005; 99283

== ENCOUNTER → 2025-05-14 12:17 | Outpatient (BNV) | payer MEDICAID, SELFPAY | PROVIDERS: Emergency Provider Emergency Medicine; Visit Provider Internal Medicine Cardiovascular Disease | DX: I44.4 Left anterior fascicular block (principal) | CPT/HCPCS: 93010 ==

== ENCOUNTER → 2025-05-14 12:33 | Outpatient (BNV) | payer MEDICAID, SELFPAY | PROVIDERS: Visit Provider Radiology Diagnostic Radiology | DX: R07.89 Other chest pain (principal) | CPT/HCPCS: 71046 ==

== ENCOUNTER 2025-05-15 10:17 | Outpatient (REF) | payer MEDICAID, SELFPAY ==
--- OUTSIDE RECORDS SUMMARY | 2025-05-15 12:10 | XMS_ITS | Clinical Summary ---
Author Organization [facility] Address [address] [place] [address] Support Name Relationship Address Phone Brayden Hernandez Emergency Contact [address] [place] [id number] Care Team Providers Care Sandblaster Stone Name Role Phone Abdullahi Lizarraga MD Primary Care Provider [phone] Allergies Active Allergy Reactions Criticality Noted Date [...] age to complete this topic Care Teams Sandblaster Stone Relationship Specialty Start Date End Date Abdullahi Lizarraga MD [address] [place] [address] PCP - General Nephrology 03/10/18
--- OUTSIDE RECORDS SUMMARY | 2025-05-15 12:10 | XMS_ITS | Clinical Summary ---
Author Organization [email or web address] Address [address] [place] [address] Care Team Providers Care Highway Design Engineer Name Role Phone Sanjay Cruz MD Primary Care Provi [facility] Surgical History Surgery Date Site/Laterality Comments OTHER SURGICAL HISTORY 05/12/2020 Right PROCEDURE: MD BX/EXC LYMPH NODE OPEN SUPERFICIAL; COMMENT: Axillary Lymph Node biopsy- Benign Lymphoid Tissue OTHER SURGICAL HISTORY 12/19/2019 Right PROCEDURE: MD BX/EXC LYMPH NODE NEEDLE SUPERFICIAL; COMMENT: Axillary Lymph node -results were non daignostic Medical History Medical History Date Comments Anxiety DX:Anxiety Migraine DX:Migraine History of DVT (deep vein thrombosis) 05/23/2020 DX:History of DVT (deep vein thrombosis); COMMENT: 01/2005 Right Subclavain terminal computer operator current use of anticoagulant 0 DX:[facility] current use of anticoagulant Acute deep vein thrombosis ( DVT) of brachial vein of right upper extremity ([facility] V24, [facility] V28) 05/09/2020 DX:Acute deep vein thrombos is (DVT) of brachial vein of right upper extremity (HCC) Axillary lymphadenopathy 05/09/2020 DX:Axil harvinder lymphadenopathy Gastroesophageal reflux disease 05/09/2020 DX:Gastroesophageal reflux disease Personal history of Hodgkin lymphoma 05/09/2020 DX:Personal history of Hodgkin lymphoma Recurrent major depressive d isorder in remission ([facility] V24) 05/09/2020 DX:Recurrent major depressiv e disorder in remission (HCC) Rheumatoid arthritis involvi ng multiple sites ([facility] V24, [facility] V28) 05/09/2020 DX:Rheumatoid arthritis invo lving multiple sites (HCC) Hodgkin's disease, nodular s clerosis, of lymph nodes of multiple sites ([facility] V24, [facility]/H[facility] V28) DX:Hodgkin's disease, nodul ar sclerosis, [...] age to complete this topic Care Teams Highway Design Engineer Relationship Specialty Start Date End Date Subramonia-Sanjay Espana MD [address] [place] [phone] PCP - General Internal Medicine 04/09/20
== END 2025-05-15 10:18 | disposition home or self-care (01) ==
LOC: HO.MAMMO 10:17
PROVIDERS: PCP General Practice; Visit Provider Registered Nurse
DX: Z12.31 Encounter for screening mammogram for malignant neoplasm of breast (principal)
CPT/HCPCS: 77063; 77067

== ENCOUNTER → 2025-05-15 11:45 | Outpatient (BNV) | payer MEDICAID, SELFPAY | PROVIDERS: PCP General Practice; Visit Provider Radiology Body Imaging | DX: Z12.31 Encounter for screening mammogram for malignant neoplasm of breast (principal) | CPT/HCPCS: 77063; 77067 ==

== ENCOUNTER 2025-05-16 11:53 | Outpatient (REF) | payer MEDICAID, SELFPAY ==
--- OUTSIDE RECORDS SUMMARY | 2025-05-14 09:45 | XMS_ITS | Encounter Summary ---
Author Organization [employer] Address [address] [facility] [address] 7t [place] [address] Care Team Providers Care Machine Attendant Name Role Phone Mackenzie Estrada MD Primary Care Provider Encounter Details Date Type Department Care Team (Late st Contact Info) Description 05/14/2025 9:45 AM EDT Office Visit [facility] MEDICINE 230 [place] [address] Sisi Kennedy FNP [address] [place], [place] [phone] Rheumatoid arthritis involving multiple sites with positive rheumatoid factor (CMS/HCC) (HCC) (Primary Dx); Long-term current use of opiate analgesic; NSTEMI (non-ST elevated myocardial infarction) (HCC) Social History Tobacco Use Types Packs/Day Years [...] this encounter Progress Notes * Sisi Kennedy, FARHEEN - 05/14/2025 9:45 AM EDT Subjective: Ginette Lacy is a 49 y.o. female w/ PMH rheumatoid arthritis, lumbosacral stenosis, DVT, GERD, Hodgkin lymphoma, migraines, NSTEMI, and chronic low back pain, who presents to the office for - Chronic Pain Clinic Group visits. Initial Group visit: 12/13/23 Group Topic: KT-Tape Presentation OTHER: - RA nodules on elbows, plan for surgery with Dr. Dean (pre-op scheduled). - End of visit, pt also mentioned intermittent chest pain relieved by nitroglycerin at night. Her step-father is currently very ill in the hospital, and she has also been experiencing increasing anxiety due to this. Due to her history of NSTEMI, advised proceed to [facility] in [facility] now for further evaluation. Chronic Pain History: Associated Diagnosis: Rheumatoid Arthritis Following with [facility], also with plan for surgical removal of nodules with [facility] Surgery team (elbow) Per PCP Note: RF++CCP++ Regularly requiring bursts [...] arthralgias. Physical Exam Constitutional: Appearance: Normal appearance. Pulmonary: Effort: Pulmonary effort is normal. Neurological: Mental Status: She is alert and oriented to person, place, and time. Psychiatric: Mood and Affect: Mood normal. Behavior: Behavior normal. Problem List Items Addressed This Visit Cardiac and Vasculature NSTEMI (non-ST elevated myocardial infarction) (HCC) Overview 05/2024 Catheterization revealed mid LAD plaque rupture and 80% stenosis. ECHO revealed LVEF 51%, abnormal septal motion consistent with conduction abnormality, mild mitral and tricuspid regurgitation, and mildly elevated CVP to 8 mmHg. EKG demonstrated prolonged Qtc to 556 msec Current Assessment & Plan - Proceed to Walk in Center now for further evaluation of chest pain at night relieved by [facility] Long-term current use of opiate analgesic Overview Medication: Percocet 7.5/325mg Q6H PRN Indication: Rheumatoid arthritis Last PRE K TEACHER Agreement: 05/14/25 Tier: II (Q3 months visits), Dr. Estrada 08/15/24 Current Assessment & Plan Timeline: - 11/06/24: Group - Utox/pill count as expected - 12/11/24: Group - Utox/pill count as expected - 03/13/25: Group - Utox/pill count as expected - 05/14/25: Group - Utox/pill count as expected Relevant Orders POCT GALLO-14 Urine Drug Screen (Completed) Multi-system (Lupus, Sarcoid...) Rheumatoid arthritis involving multiple sites (CMS/HCC) ([facility]) - Primary Overview - Following with [facility] Rheumatology: Dr. Corley Current Assessment & Plan Actemra discontinued 03/08/25. Currently prescribed prednisone 20mg daily and Bactrim for PCP prophylaxis through Rheum. Reviewed ED rec/precautions. Disability is severe, limited mobility and exercise tolerance Hospital bed received Scooter evaluation complete and has arrived for patient Using Percocet 7.5/325mg for pain relief Quitting smoking is helping as well Relevant Orders POCT GALLO-14 Urine Drug Screen (Completed) Follow up: 1-3 months for Group Chronic [facility]. Follow up as scheduled with PCP, sooner as needed. * Kaylene Samano RN - 05/14/2025 9:45 AM EDT PRE K TEACHER door core assembler: PDMP reviewed today. Last fill date: 04/18/25 Percocet 7.5mg count was 33, anticipated 7 to be remaining. UTOX completed. Positive for BZO, OXY & THC Negative for AMP, BAR, BUP, ANKUSH, FTY, MDMA, MET, MOP, MTD, PCP, TCA. UTOX as expected. PRE K TEACHER Agreement reviewed and signed. BPI updated today. Pain severity score of 10, activity interference score of 9. Previous BPI completed 12/11/24 with pain severity score of 10, activity interference score of 9. Will update PCP with BPI scoring. documented in this encounter Miscellaneous Notes * Assessment & Plan Note - FARHEEN Ng - 05/14/2025 1:21 PM EDTAssociated Problem(s): NSTEMI (non-ST elevated myocardial infarction) ([facility]) - Proceed to [facility] in Center now for further evaluation of chest pain at night relieved by Nitro * Assessment & Plan Note - FARHEEN Ng - 05/14/2025 1:20 PM EDTAssociated Problem(s): Long-term current use of opiate analgesic Timeline: - 11/06/24: Group - Utox/pill count as expected - 12/11/24: Group - Utox/pill count as expected - 03/13/25: Group - Utox/pill count as expected - 05/14/25: Group - Utox/pill count as expected * Assessment & Plan Note - FARHEEN Ng - 05/14/2025 1:19 PM EDTAssociated Problem(s): Rheumatoid arthritis involving multiple sites (CMS/HCC) ([facility]) Actemra discontinued 03/08/25. Currently prescribed prednisone 20mg daily and Bactrim for PCP prophylaxis through Rheum. Reviewed ED rec/precautions. Disability is severe, limited mobility and exercise tolerance Hospital bed received Scooter evaluation complete and has arrived for patient Using Percocet 7.5/325mg for pain relief Quitting smoking is helping as well documented in this encounter Plan of Treatment Upcoming Encounters Date Type Department Care Team (Late st Contact Info) Description 06/07/2025 3:45 PM EST Office Visit [facility] MEDICINE [address] [place] [address] Mackenzie Estrada MD [address] [place] [address] 07/09/2025 9:45 AM EST Office Visit [address] [address] documented as of this encounter Goals Goal Patient Goal Type Associated Problems Recent Progress Patient-Stated? Author Quit using tobacco (cigarettes, smokeless, etc) Tobacco Use Corey Cornell, KelechiD documented as of this encounter Procedures Procedure Name Priority Date/Time Associated Diagnosis Comments POCT GALLO-14 URINE DRUG SCREEN Routine 05/14/2025 9:27 AM EDT Rheumatoid arthritis involving multiple sites with positive rheumatoid factor (CMS/HCC) (HCC) Long-term current use of opiate analgesic documented in this encounter Results * (ABNORMAL) POCT GALLO-14 Urine Drug Screen (05/14/2025 9:27 AM EDT) THC Positive(A) Negative Cocaine Screen, [...] obtained by clean catch procedure / Unknown 05/14/2025 9:27 AM EDT Sisi Kennedy RASPBERRY CHECKER POINT OF CARE TEST ENTER/EDIT ORDERABLES Edited Result - Final documented in this encounter Visit Diagnoses Diagnosis Rheumatoid arthritis involving multiple sites with positive rheumatoid factor (CMS/HCC) (HCC)- Primary Long-term current use of opiate analgesic Encounter for long-term (current) use of other medications NSTEMI (non-ST elevated myocardial infarction) (HCC) Acute myocardial infarction, subendocardial infarction, episode of care unspecified documented in this encounter Additional Health Concerns Assessment Noted Time PHQ-9 Depression Total Score: 6 04/03/20 25 11:40 AM EDT documented as of this encounter Care Teams Machine Attendant Relationship Specialty Start Date End Date Mackenzie Estrada MD [address] [place] [address] PCP - General Family Medicine 07/10/20 Hemalatha Pretty Legal Administrative SecretaryHand Cutter 01/02/25 documented as of this encounter
--- OUTSIDE RECORDS SUMMARY | 2025-05-14 13:00 | XMS_ITS | Encounter Summary ---
Author Organization [employer] Address [address] [place] [address] Care Team Providers Care Painter Spray Name Role Phone Mackenzie Estrada MD Primary Care Provider [phone] Encounter Details Date Type Department Care Team (Late st Contact Info) Description 05/14/2025 1:00 PM EDT Office Visit [facility] [address] [place], [place] [phone] Raoul Hills MD [address] [place], [place] [phone] Precordial pain (Primary Dx); Chest pain, unspecified [...] the past 12 months, has t he [employer], gas, oil or water [employer] threatened to shut off services in your [...] x1 Plan of care: Report to Dr Lewis Provider evaluation: Yes Patient seen by provider and determined to send to Ed for further evaluation, history of NSTEMi andDVT Call for transport to ED, [facility] [place] Eva Christopher RN * Raoul Reed MD [...] decision was made to transport to ER. * Addendum Note - Raoul Reed MD - 05/14/2025 1:00 PM EDTAddended by: RAOUL LEWIS on: 05/15/2025 11:00 AM Modules accepted: Orders documented in this encounter Plan of Treatment Upcoming Encounters Date Type Department Care Team (Late st Contact Info) Description 06/07/2025 3:45 PM EST Office Visit [facility] [address] [place] [address] Mackenzie Estrada MD [address] [place] [address] 07/09/2025 9:45 AM EST Office Visit [facility] [address] [place] [address] documented as of this encounter Goals Goal Patient Goal Type Associated Problems Recent Progress Patient-Stated? Author Quit using tobacco (cigarettes, smokeless, etc) Tobacco Use No Corey Lin, Bailey documented as of this encounter Procedures Procedure Name Priority Date/Time Associated Diagnosis Comments ECG 12-LEAD Routine 05/15/2025 11:00 AM EDT Precordial pain Chest pain, unspecified type documented in this encounter Results * ECG 12 lead (05/15/2025 11:00 AM EDT) Raoul Alonzo MD - 05/15/2025 11:00 AM EDT NSR, HR 76 BPM LAFB Raoul Reed MD ECG ORDERABLES Final Result documented in this encounter Visit Diagnoses Diagnosis Precordial pain- [...] documented as of this encounter Care Teams Painter Spray Relationship Specialty Start Date End Date Mackenzie Estrada MD [address] [place] [phone] PCP - General Family Medicine 07/10/20 Hemalatha Pretty Drilling SupervisorSolar Systems Designer 01/02/25 documented as of this encounter
--- OUTSIDE RECORDS SUMMARY | 2025-05-16 10:30 | XMS_ITS | Encounter Summary ---
Author Organization [email or web address] Address 75 [facility] 7t [place] [address] Care Team Providers Care Junior Analyst Name Role Phone Mackenzie Estrada MD Primary Care Provider [phone] Reason for Visit * Reason Comments Pre-op Exam Encounter Details Date Type Department Care Team ([facility] Contact Info) Description 05/16/2025 10:30 AM EDT Office Visit [facility] [address] [place], [place] [phone] Aura Vu NP 230 [place] [address] Pre-op examination (Primary Dx) Social History Tobacco Use Types [...] Sign Reading Time Taken Comments Blood Pressure 130/86 05/16/2025 11:10 AM EDT Pulse 64 05/16/2025 11:10 AM EDT Temperature 36.7 C (98 F) 05/16/2025 11:10 AM EDT Respiratory Rate 16 05/16/2025 11:10 AM EDT Oxygen Saturation 99% 05/16/2025 11:10 AM EDT Inhaled Oxygen Concentration - - Weight 86.3 kg (190 lb 3.2 oz) 05/16/2025 11:10 AM EDT Height 157.5 cm (5' 2 ) 05/16/2025 11:10 AM EDT Body Mass Index 34.79 05/16/2025 11:10 AM EDT documented in this encounter Plan of Treatment Upcoming Encounters Date Type Department Care Team (Late st Contact Info) Description 06/07/2025 3:45 PM EST Office Visit [facility] [address] [place] [address] Mackenzie Estrada MD [address] [place], [place] [phone] 07/09/2025 9:45 AM EST Office Visit [facility] [address] [place] [address] documented as of this encounter Goals Goal Patient Goal Type Associated Problems Recent Progress Patient-Stated? Author Quit using tobacco (cigarettes, smokeless, etc) Tobacco Use No Corey Lin, Bailey documented as of this encounter Procedures Procedure Name Priority Date/Time Associated Diagnosis Comments CBC WITH AUTO DIFFERENTIAL Routine 05/16/2025 1:03 PM EDT Pre-op examination APTT Routine 05/16/2025 12:03 PM EDT Pre-op examination PROTHROMBIN TIME-INR Routine 05/16/2025 12:03 PM EDT Pre-op examination COMPREHENSIVE METABOLIC PANEL Routine 05/16/2025 12:03 PM EDT Pre-op examination documented in this encounter Results * CBC auto differential (05/16/2025 1:03 PM EDT) White Blood Count 6.1 4.8 - 10.8 X10*3/uL [facility] Red Blood Count 4.26 4.20 - 5.50 X10*6/uL [facility] Hemoglobin 13.0 12.0 - 16.0 g/dl [facility] Hematocrit 40.2 37.0 - 47.0 % [facility] Mean Corpuscular Volume 94.4 80.0 - 98.0 fL [facility] Mean Corpuscular Hemoglobin 30.5 27.0 - 33.0 pg [facility] Mean Corpuscular HGB Conc 32.3 31.0 - 35.0 g/dl [facility] Red Cell Distribution Width 14.6 11.0 - 16.0 % [facility] Platelet Count 227 160 - 400 X10*3/uL [facility] Mean Platelet Volume 10.3 9.4 - 12.3 fL [facility] Neutrophils Percent Auto 56.1 45 - 73 % [facility] Imm Gran Pct Auto 0.2 0.0 - 0.4 % [facility] Lymphocytes Percent Auto 36.4 20 - 40 % [facility] Monocytes Percent Auto 5.9 2 - 11 % [facility] Eosinophils Percent Auto 1.1 0 - 4 % [facility] Basophils Percent Auto 0.3 0 - 2 % [facility] NRBC Pct Auto 0.0 0.0 - 0.2 /100WBC [facility] Neutrophils Absolute Auto 3.4 2.0 - 8.3 x10*3/uL [facility] Imm Gran Abs Auto 0.01 0.00 - 0.03 X10*3/uL [facility] Lymphocytes Absolute Auto 2.2 1.2 - 4.9 X10*3/uL [facility] Monocytes Absolute Auto 0.4 0.1 - 1.2 X10*3/uL [facility] Eosinophils Absolute Auto 0.1 0.0 - 0.4 X10*3/uL [facility] Basophils Absolute Auto 0.0 0.0 - 0.2 X10*3/uL [facility] NRBC Abs Auto 0.000 0.0 - 0.012 X10*3/uL [facility] Blood Venous blood specimen / Unknown 05/16/2025 1:03 PM EDT 05/16/2025 1:11 PM EDT us Aura Vu TECHNICAL PROGRAM MANAGER LAB BLOOD ORDERABLES Final Resu lt [facility] [address] [place] [phone] * (ABNORMAL) Prothrombin Time-INR (05/16/2025 12:03 PM EDT) Prothrombin Time 13.0(H) 10.9 - 12.4 SEC [facility] INTERNATIONAL NORM RATIO 1.1 0.9 - 1.1 [facility] Comment:INTERNATIONAL NORMAL IZED RATIO (INR) REFERENCE RANGES Reference RangeFor patients not on anticoagulant therapy: 0.9 - 1.1INR ranges for oral anticoagulanttherapy:For prevention and treatment of venous thrombosis and pulmonary embolism: 2.0 - 3.0For acute myocardial infarction with aspirin therapy: 2.0 - 3.0For acute myocardial infarction without aspirin therapy: 3.0 - 4.0For patients with mechanical prosthetic heart valves: 2.5 - 3.5 Blood Venous blood specimen / Unknown 05/16/2025 12:03 PM EDT 05/16/2025 1:11 PM EDT [facility] LAB BLOOD ORDERABLES Final Resu lt Performing Organization Address [facility] Co de Phone Number [facility] [address] [place] [phone] * Partial Thromboplastin Time, Activated (APTT) (05/16/2025 12:03 PM EDT) Pathologist [facility] Partial Thromboplastin Time 31.1 26.7 - 34.1 SEC [facility] Blood Venous blood specimen / Unknown 05/16/2025 12:03 PM EDT 05/16/2025 1:11 PM EDT [facility] LAB BLOOD ORDERABLES Final Resu lt Performing Organization Address [facility] de Phone Number [facility] [address] [place] [phone] * (ABNORMAL) Comprehensive Metabolic Panel (05/16/2025 12:03 PM EDT) Sodium 142 135 - 145 mmol/L [facility] Potassium 4.1 3.3 - 5.1 mmol/L [facility] Chloride 107 96 - 108 mmol/L [facility] Carbon Dioxide 27 22 - 29 mmol/L [facility] Anion Gap 12 12 - 20 [facility] Urea Nitrogen (BUN) 13 9 - 16 mg/dL [facility] Creatinine, Serum 0.63 0.5 - 1.4 mg/dL [facility] Estimated Glomerular Filt Rate >60 [facility] Comment:Chronic Kidney Disea se: Estimated GFR < 60 mL/min/[id number] Kidney Disease: Estimated GFR < 15 mL/min/1.73m2 Glucose 84 60 - 115 mg/dL [facility] Calcium 9.7 8.4 - 10.2 mg/dL [facility] Bilirubin, Total 0.3 0.0 - 1.0 mg/dL [facility] Aspartate Amino Transferase 33(H) 5 - 31 U/L [facility] Alanine Aminotransferase 27 0 - 31 U/L [facility] Total Protein 9.2(H) 6.5 - 8.0 g/dL [facility] Albumin Level 4.7 3.5 - 5.0 g/dL [facility] Alkaline Phosphatase 81 39 - 117 U/L [facility] Blood Venous blood specimen / Unknown 05/16/2025 12:03 PM EDT 05/16/2025 1:31 PM EDT Aura Kim TECHNICAL PROGRAM MANAGER LAB BLOOD ORDERABLES Final Resu lt [facility] [address] [place] [phone] documented in this encounter Visit Diagnoses Diagnosis Pre-op examination- Primary documented in this encounter Additional Health Concerns Assessment Noted Time PHQ-9 Depression Total Score: 6 04/03/20 11:40 AM EDT documented as of this encounter Care Teams Junior Analyst Relationship Specialty Start Date End Date Mackenzie Estrada MD [address] [place] [phone] PCP - General Family Medicine 07/10/20 Hemalatha Pretty Neurodiagnostic TechnicianWelfare Supervisor 01/02/25 documented as of this encounter
[2025-05-16 13:13] LABS: MANUAL DIFF FLAG NO
[2025-05-16 13:28] LABS: Hematocrit 40.2 % (37.0-47.0); Hemoglobin 13.0 g/dl (12.0-16.0); Imm Gran Abs Auto 0.01 X10*3/uL (0.00-0.03); Imm Gran Pct Auto 0.2 % (0.0-0.4); Lymphocytes Absolute Auto 2.2 X10*3/uL (1.2-4.9); Mean Corpuscular HGB Conc 32.3 g/dl (31.0-35.0); Mean Corpuscular Hemoglobin 30.5 pg (27.0-33.0); Mean Corpuscular Volume 94.4 fL (80.0-98.0); NRBC Abs Auto 0.000 X10*3/uL (0.0-0.012); NRBC Pct Auto 0.0 /100WBC (0.0-0.2); Platelet Count 227 X10*3/uL (160-400); Red Blood Count 4.26 X10*6/uL (4.20-5.50); White Blood Count 6.1 X10*3/uL (4.8-10.8)
[2025-05-16 13:33] LABS: INTERNATIONAL NORM RATIO 1.1 (0.9-1.1); Prothrombin Time 13.0 SEC (10.9-12.4)
[2025-05-16 13:35] LABS: Partial Thromboplastin Time 31.1 SEC (26.7-34.1)
[2025-05-16 14:11] LABS: Alanine Aminotransferase 27 U/L (0-31); Albumin Level 4.7 g/dL (3.5-5.0); Alkaline Phosphatase 81 U/L (39-117); Anion Gap 12 (12-20); Aspartate Amino Transferase 33 U/L (5-31); Blood Urea Nitrogen 13 mg/dL (9-16); Calcium 9.7 mg/dL (8.4-10.2); Carbon Dioxide 27 mmol/L (22-29); Chloride 107 mmol/L (96-108); Cholesterol 261 mg/dL (<200); Estimated Glomerular Filt Rate > 60; HDL Cholesterol 52 mg/dL (>40); Potassium 4.1 mmol/L (3.3-5.1); Sodium 142 mmol/L (135-145); Total Protein 9.2 g/dL (6.5-8.0); Triglycerides 154 mg/dL (<150)
--- OUTSIDE RECORDS SUMMARY | 2025-05-16 15:08 | XMS_ITS | Encounter Summary ---
Author Organization [employer] Address [address] [facility] [address] 7t [place] [address] Care Team Providers Care Shipping Coordinator Name Role Phone Mackenzie Estrada MD Primary Care Provider [phone] Encounter Details Date Type Department Care Team (Latest Contact Info) Description 05/16/2025 Travel Social History Tobacco Use Types Packs/Day [...] Description 06/07/2025 3:45 PM EST Office Visit [address] [address] Mackenzie Estrada MD [address] [place] [address] 07/09/2025 9:45 AM EST Office Visit [address] [address] documented as of this encounter Goals Goal Patient Goal Type Associated Problems Recent Progress Patient-Stated? Author Quit using tobacco (cigarettes, smokeless, etc) Tobacco Use No Corey Lin, PharmD documented as of this encounter Visit Diagnoses Not on filedocumented in this encounter Additional Health Concerns Assessment Noted Time PHQ-9 Depression Total Score: 6 04/03/20 11:40 AM EDT documented as of this encounter Care Teams Shipping Coordinator Relationship Specialty Start Date End Date Mackenzie Estrada MD [address] [place] [address] PCP - General Family Medicine 07/10/20 Hemalatha Pretty Adult CaregiverLocal Company Flatbed Truck Driver 01/02/25 documented as of this encounter
--- OUTSIDE RECORDS SUMMARY | 2025-05-16 15:08 | XMS_ITS | Encounter Summary ---
Author Organization [employer] Address 75 [facility] 7t [place] [address] Care Team Providers Care Lithographic Photographer Name Role Phone Mackenzie Estrada MD Primary Care Provider [phone] Casper Magaña RN Unavailable [phone] Ruth Ann Price Unavailable Unavailable Ruth Ann Prcie Unavailable Ruth Ann Price Unavailable Reason for Visit * Reason Comments Med Refill Encounter Details Date Type Department Care Team ([facility] Contact Info) Description 12/10/2022 Refill [facility] [address] [place] [address] Mackenzie Estrada MD [address] [place] [address] Pain in both hands Social History Tobacco [...] Upcoming Encounters Date Type Department Care Team ([facility] Contact Info) Description 06/07/2025 3:45 PM EST Office Visit [address] [address] Mackenzie Estrada MD [address] [place] [address] 07/09/2025 9:45 AM EST Office Visit [address] [address] documented as of this encounter Visit Diagnoses Diagnosis Pain in both hands documented in this encounter Care Teams Lithographic Photographer Relationship Specialty Start Date End Date Mackenzie Estrada MD [address] [place] [address] PCP - General Family Medicine 07/10/20 Casper Magaña, RN [address] [place] [address] Registered Nurse Family Medicine 01/18/25 01/18/25 Ruth Ann Price 02/19/25 02/19/25 Ruth Ann Price 02/19/25 02/28/25 Ruth Ann Price 03/29/25 04/03/25 Hemalatha Pretty Sill WorkerBlasting Contract Miner 01/02/25 documented as of this encounter
--- OUTSIDE RECORDS SUMMARY | 2025-05-16 15:08 | XMS_ITS | Encounter Summary ---
Author Organization [employer] Address 75 [facility] 7t [place] [address] Care Team Providers Care Engraver Set Up Operator Name Role Phone Mackenzie Estrada MD Primary Care Provider [phone] Casper Magaña RN Unavailable Ruth Ann Price Unavailable Unavailable Ruth Ann Price Unavailable Ruth Ann Price Unavailable Reason for Visit * Reason Comments Med Refill Encounter Details Date Type Department Care Team (Late st Contact Info) Description 08/19/2024 Refill [facility] [address] [place] [address] Mackenzie Estrada MD [address] [place] [address] Social History Tobacco Use Types Packs/Day Years [...] Description 06/07/2025 3:45 PM EST Office Visit [address] [address] Mackenzie Estrada MD [address] [place] [address] 07/09/2025 9:45 AM EST Office Visit [address] [address] documented as of this encounter Goals Goal Patient Goal Type Associated Problems Recent Progress Patient-Stated? Author Quit using tobacco (cigarettes, smokeless, etc) Tobacco Use Corey Cornell, KelechiD documented as of this encounter Visit Diagnoses Not on filedocumented in this encounter Additional Health Concerns Assessment Noted Time PHQ-9 Depression Total Score: 2 04/30/20 24 10:41 AM EDT documented as of this encounter Care Teams Engraver Set Up Operator Relationship Specialty Start Date End Date Mackenzie Estrada MD [address] [place] [address] PCP - General Family Medicine 07/10/20 Casper Magaña, RN [address] [place] [address] Registered Nurse Family Medicine 01/18/25 01/18/25 Ruth Ann Price 02/19/25 02/19/25 Ruth Ann Price 02/19/25 02/28/25 Ruth Ann Price 03/29/25 04/03/25 Hemalatha Pretty Check Out CashierInstructor Physical Education 01/02/25 documented as of this encounter
--- OUTSIDE RECORDS SUMMARY | 2025-05-16 15:08 | XMS_ITS | Clinical Summary ---
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 0 DX:senior care current use of anticoagulant Acute deep vein thrombosis ( DVT) of brachial vein of right upper extremity ([facility] V24, [facility] V28) 05/09/2020 DX:Acute deep vein thrombos is (DVT) of brachial vein of right upper extremity (HCC) Axillary lymphadenopathy 05/09/2020 DX:Axil harvinder lymphadenopathy Gastroesophageal reflux disease 05/09/2020 DX:Gastroesophageal reflux disease Personal history of Hodgkin lymphoma 05/09/2020 DX:Personal history of Hodgkin lymphoma Recurrent major depressive d isorder in remission ([facility] V24) 05/09/2020 DX:Recurrent major depressiv e disorder in remission (HCC) Rheumatoid arthritis involvi ng multiple sites ([facility] V24, [facility] V28) 05/09/2020 DX:Rheumatoid arthritis invo lving multiple sites (HCC) Hodgkin's disease, nodular s clerosis, of lymph nodes of multiple sites ([facility] V24, [facility] V28) DX:Hodgkin's disease, nodul ar sclerosis, of [...] age to complete this topic Care Teams Forklift Operator Relationship Specialty Start Date End Date Subramonia-Sanjay Espana MD [address] [place] [phone] PCP - General Internal Medicine 04/09/20
--- OUTSIDE RECORDS SUMMARY | 2025-05-16 15:08 | XMS_ITS | Encounter Summary ---
Author Organization [employer] Address 75 [facility] 7t [place] [address] Care Team Providers Care Profiler Hand Name Role Phone Mackenzie Estrada MD Primary Care Provider [phone] Casper Magaña RN Unavailable [phone] Ruth Ann Price Unavailable Unavailable Ruth Ann Price Unavailable Ruth Ann Price Unavailable Reason for Visit * Reason Comments Med Refill Encounter Details Date Type Department Care Team (Late st Contact Info) Description 10/10/2024 Refill [facility]ICINE [address] [place] [address] Mackenzie Estrada MD [address] [place] [address] 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 ([facility]) Social History Tobacco Use Types Packs/Day Years [...] Description 06/07/2025 3:45 PM EST Office Visit [facility] [address] [place] [address] Mackenzie Estrada MD [address] [place] [address] 07/09/2025 9:45 AM EST Office Visit [address] [address] documented as of this encounter Goals Goal [...] documented as of this encounter Care Teams Profiler Hand Relationship Specialty Start Date End Date Mackenzie Estrada MD [address] [place] [address] PCP - General Family Medicine 07/10/20 Casper Magaña, JENNIFER [address] [place] [address] Registered Nurse Family Medicine 01/18/25 01/18/25 Ruth Ann Price 02/19/25 02/19/25 Ruth Ann Price 02/19/25 02/28/25 Ruth Ann Price 03/29/25 04/03/25 Hemalatha Pretty Advanced Quality EngineerIrrigator Sprinkling System 01/02/25 documented as of this encounter
--- OUTSIDE RECORDS SUMMARY | 2025-05-16 15:08 | XMS_ITS | Encounter Summary ---
Author Organization [employer] Address [address] [facility] [address] [address] 7t [place] [address] Care Team Providers Care Analysis Reporting Developer Name Role Phone Mackenzie Estrada MD Primary Care Provider [phone] Casper Magaña RN Unavailable [phone] Ruth Ann Price Unavailable Unavailable Ruth Ann Price Unavailable Ruth Ann Price Unavailable Reason for Visit * Reason Comments Med Refill Encounter Details Date Type Department Care Team (Late st Contact Info) Description 10/10/2024 Refill [facility] 230 [place] [address] Kat Yo MD 230 [place], [place] [phone] Rheumatoid arthritis involving right hand with positive [...] Description 06/07/2025 3:45 PM EST Office Visit [facility] [address] [place] [address] Mackenzie Estrada MD [address] [place] [address] 07/09/2025 9:45 AM EST Office Visit [address] [address] documented as of this encounter Goals Goal Patient Goal Type Associated Problems Recent Progress Patient-Stated? Author Quit using tobacco (cigarettes, smokeless, etc) Tobacco Use No Corey Lin, PharmD documented as of this encounter Visit Diagnoses Diagnosis 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 (CMS/HCC) ([facility]) Inflammatory arthritis Unspecified inflammatory polyarthropathy documented in this encounter Additional Health Concerns Assessment Noted Time PHQ-9 Depression Total Score: 2 04/30/20 24 10:41 AM EDT documented as of this encounter Care Teams Analysis Reporting Developer Relationship Specialty Start Date End Date Mackenzie Estrada MD [address] [place] [address] PCP - General Family Medicine 07/10/20 Casper Magaña, JENNIFER [address] [place] [address] Registered Nurse Family Medicine 01/18/25 01/18/25 Ruth Ann Price 02/19/25 02/19/25 Ruth Ann Price 02/19/25 02/28/25 Ruth Ann Price 03/29/25 04/03/25 Hemalatha Pretty Microwave Remote Sensing ScientistEnt Nurse 01/02/25 documented as of this encounter
--- OUTSIDE RECORDS SUMMARY | 2025-05-16 15:09 | XMS_ITS | Encounter Summary ---
Author Organization [employer] Address 75 [facility] 7t [place] [address] Care Team Providers Care National Park Ranger Name Role Phone Mackenzie Estrada MD Primary Care Provider [phone] Casper Magaña RN Unavailable [phone] Ruth Ann Price Unavailable Unavailable Ruth Ann Price Unavailable Ruth Ann Price Unavailable Reason for Visit * Reason Comments Med Refill Encounter Details Date Type Department Care Team (Late st Contact Info) Description 11/18/2023 Refill [facility] [address] [place] [address] Mackenzie Estrada MD [address] [place], [place] [phone] Pain in both hands Social History Tobacco [...] Description 06/07/2025 3:45 PM EST Office Visit [address] [address] Mackenzie Estrada MD [address] [place] [address] 07/09/2025 9:45 AM EST Office Visit [address] [address] documented as of this encounter Goals Goal Patient Goal Type Associated Problems Recent Progress Patient-Stated? Author Quit using tobacco (cigarettes, smokeless, etc) Tobacco Use No Corey Lin, Bailey documented as of this encounter Visit Diagnoses Diagnosis Pain in both hands documented in this encounter Care Teams National Park Ranger Relationship Specialty Start Date End Date Mackenzie Estrada MD [address] [place] [address] PCP - General Family Medicine 07/10/20 Casper Magaña, JENNIFER [address] [place] [address] Registered Nurse Family Medicine 01/18/25 01/18/25 Ruth Ann Price 02/19/25 02/19/25 Ruth Ann Price 02/19/25 02/28/25 Ruth Ann Price 03/29/25 04/03/25 Hemalatha Pretty Brick And Block MasonHaul Driver 01/02/25 documented as of this encounter
--- OUTSIDE RECORDS SUMMARY | 2025-05-16 15:09 | XMS_ITS | Encounter Summary ---
Author Organization [employer] Address 75 [facility] 7t [place] [address] Care Team Providers Care Tank Systems Maintainer Name Role Phone Mackenzie Estrada MD Primary Care Provider [phone] Casper Magaña RN Unavailable [phone] Ruth Ann Price Unavailable Unavailable Ruth Ann Price Unavailable Ruth Ann Price Unavailable Reason for Visit * Reason Comments Med Refill Encounter Details Date Type Department Care Team (Late st Contact Info) Description 06/03/2023 Refill [facility] MEDICINE 230 [place] [address] Mackenzie Estrada MD [address] [place], [place] [phone] Pain in both hands Social History Tobacco [...] Description 06/07/2025 3:45 PM EST Office Visit [address] [address] Mackenzie Estrada MD [address] [place] [address] 07/09/2025 9:45 AM EST Office Visit [address] [address] documented as of this encounter Goals Goal Patient Goal Type Associated Problems Recent Progress Patient-Stated? Author Quit using tobacco (cigarettes, smokeless, etc) Tobacco Use No Corey Lin, Bailey documented as of this encounter Visit Diagnoses Diagnosis Pain in both hands documented in this encounter Care Teams Tank Systems Maintainer Relationship Specialty Start Date End Date Mackenzie Estrada MD [address] [place] [address] PCP - General Family Medicine 07/10/20 Casper Magaña, JENNIFER [address] [place] [address] Registered Nurse Family Medicine 01/18/25 01/18/25 Ruth Ann Price 02/19/25 02/19/25 Ruth Ann Price 02/19/25 02/28/25 Ruth Ann Price 03/29/25 04/03/25 Hemalatha Pretty Last IronerYard Assistant 01/02/25 documented as of this encounter
--- OUTSIDE RECORDS SUMMARY | 2025-05-16 15:09 | XMS_ITS | Encounter Summary ---
Author Organization [employer] Address [address] [facility] [address] 7[address] [place] [address] Care Team Providers Care Leather Piece Inspector Name Role Phone Mackenzie Estrada MD [...] Description 06/07/2025 3:45 PM EST Office Visit [address] [address] Mackenzie Estrada MD [address] [place] [address] 07/09/2025 9:45 AM EST Office Visit [address] [address] documented as of this encounter Goals Goal Patient Goal Type Associated Problems Recent Progress Patient-Stated? Author Quit using tobacco (cigarettes, smokeless, etc) Tobacco Use No Corey Lin, PharmD documented as of this encounter Visit Diagnoses Not on filedocumented in this encounter Additional Health Concerns Assessment Noted Time PHQ-9 Depression Total Score: 6 04/03/20 11:40 AM EDT documented as of this encounter Care Teams Leather Piece Inspector Relationship Specialty Start Date End Date Mackenzie Estrada MD [address] [place] [address] PCP - General Family Medicine 07/10/20 Hemalatha Pretty Package SealerJunior Network Administrator 01/02/25 documented as of this encounter
--- OUTSIDE RECORDS SUMMARY | 2025-05-16 15:09 | XMS_ITS | Encounter Summary ---
Author Organization [employer] Address [address] [facility] 7t [place] [address] Care Team Providers Care Process Improvement Analyst Name Role Phone Mackenzie Estrada MD Primary Care Provider [phone] Reason for Visit * Reason Onset Date Comments Chartprep 05/14/2025 Encounter Details Date Type Department Care Team ([facility] Contact Info) Description 05/14/2025 Telephone [facility] [address] [place] [address] Mackenzie Estrada MD 230 [place] [address] Chartprep Social History Tobacco Use Types Packs/Day [...] the past 12 months, has t he [employer], gas, oil or water company threatened to [...] Description 06/07/2025 3:45 PM EST Office Visit [facility] [address] [place] [address] Mackenzie Estrada MD [address] [place] [address] 07/09/2025 9:45 AM EST Office Visit [address] [address] documented as of this encounter Goals Goal Patient Goal Type Associated Problems Recent Progress Patient-Stated? Author Quit using tobacco (cigarettes, smokeless, etc) Tobacco Use No Corey Lin, Bailey documented as of this encounter Visit Diagnoses Not on filedocumented in this encounter Additional Health Concerns Assessment Noted Time PHQ-9 Depression Total Score: 6 04/03/20 11:40 AM EDT documented as of this encounter Care Teams Process Improvement Analyst Relationship Specialty Start Date End Date Mackenzie Estrada MD [address] [place] [address] PCP - General Family Medicine 07/10/20 Hemalatha Pretty District Or District Office DirectorSolar Energy Engineer 01/02/25 documented as of this encounter
--- OUTSIDE RECORDS SUMMARY | 2025-05-16 15:09 | XMS_ITS | Encounter Summary ---
Author Organization [employer] Address [address] [facility] 7t [place] [address] Care Team Providers Care Cable Splicer Helper Name Role Phone Mackenzie Estrada MD Primary Care Provider [phone] Ruth Ann Price Unavailable Unavailable Ruth Ann Price Unavailable Ruth Ann Price Unavailable Reason for Visit * Reason Comments Med Refill Encounter Details Date Type Department Care Team ([facility] st Contact Info) Description 02/01/2025 Refill [facility] 230 [place], [place] [phone] Ebony Daigle MD 230 [place], [place] [phone] Social History Tobacco Use Types Packs/Day Years [...] Description 06/07/2025 3:45 PM EST Office Visit [address] [address] Mackenzie Estrada MD [address] [place] [address] 07/09/2025 9:45 AM EST Office Visit [address] [address] documented as of this encounter Goals Goal Patient Goal Type Associated Problems Recent Progress Patient-Stated? Author Quit using tobacco (cigarettes, smokeless, etc) Tobacco Use Corey Cornell, KelechiD documented as of this encounter Visit Diagnoses Not on filedocumented in this encounter Additional Health Concerns Assessment Noted Time PHQ-9 Depression Total Score: 2 04/30/20 24 10:41 AM EDT documented as of this encounter Care Teams Cable Splicer Helper Relationship Specialty Start Date End Date Mackenzie Estrada MD [address] [place] [address] PCP - General Family Medicine 07/10/20 Ruth Ann Price 02/19/25 02/19/25 Ruth Ann Price 02/19/25 02/28/25 Ruth Ann Price 03/29/25 04/03/25 Hemalatha Pretty Director Targeted MarketingMysql Developer 01/02/25 documented as of this encounter
--- OUTSIDE RECORDS SUMMARY | 2025-05-16 15:09 | XMS_ITS | Encounter Summary ---
Author Organization [employer] Address [address] [facility] [address] [facility] [address] 7t [place] [address] Care Team Providers Care Wardrobe Image Consultant Name Role Phone Mackenzie Estrada MD Primary Care Provider [phone] Ruth Ann Price Unavailable Unavailable Ruth Ann Price Unavailable Ruth Ann Price Unavailable Reason for Visit * Reason Comments Med Refill Encounter Details Date Type Department Care Team ([facility] st Contact Info) Description 01/24/2025 Refill [facility] 230 [place] [address] Kat Yo MD 230 [place], [place] [phone] Rheumatoid arthritis involving right hand with positive [...] Description 06/07/2025 3:45 PM EST Office Visit [address] [address] Mackenzie Estrada MD [address] [place] [address] 07/09/2025 9:45 AM EST Office Visit [address] [address] documented as of this encounter Goals Goal Patient Goal Type Associated Problems Recent Progress Patient-Stated? 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 (CMS/HCC) ([facility]) Inflammatory arthritis Unspecified inflammatory polyarthropathy documented in this encounter Additional Health Concerns Assessment Noted Time PHQ-9 Depression Total Score: 2 04/30/20 24 10:41 AM EDT documented as of this encounter Care Teams Wardrobe Image Consultant Relationship Specialty Start Date End Date Mackenzie Estrada MD [address] [place] [address] PCP - General Family Medicine 07/10/20 Ruth Ann Price 02/19/25 02/19/25 Ruth Ann Price 02/19/25 02/28/25 Ruth Ann Price 03/29/25 04/03/25 Hemalatha Pretty Ppa TeacherStave Machine Tender 01/02/25 documented as of this encounter
--- OUTSIDE RECORDS SUMMARY | 2025-05-16 15:09 | XMS_ITS | Encounter Summary ---
Author Organization [employer] Address [address] [facility] 7t [place] [address] Care Team Providers Care Vp Integrity Name Role Phone Mackenzie Estrada MD Primary Care Provider [phone] Reason for Visit * Reason Comments Med Refill Encounter Details Date Type Department Care Team ([facility] Contact Info) Description 04/09/2025 Refill [facility]INE 230 [place] [address] Sisi Kennedy FNP [address] [place] [address] Seborrheic dermatitis Social History Tobacco Use Types [...] Description 06/07/2025 3:45 PM EST Office Visit [facility] [address] [place] [address] Mackenzie Estrada MD [address] [place] [address] 07/09/2025 9:45 AM EST Office Visit [facility] [address] [place] [address] documented as of this encounter Goals Goal [...] documented as of this encounter Care Teams Vp Integrity Relationship Specialty Start Date End Date Mackenzie Estrada MD [address] [place] [address] PCP - General Family Medicine 07/10/20 Hemalatha Pretty Hse CoordinatorFlat Optical Element Maker 01/02/25 documented as of this encounter
--- OUTSIDE RECORDS SUMMARY | 2025-05-16 15:09 | XMS_ITS | Encounter Summary ---
Author Organization [employer] Address [address] [facility] [address] 7t [place] [address] Care Team Providers Care Optical Lens Manufacturing Tech Name Role Phone Mackenzie Estrada MD Primary Care Provider [phone] Casper Magaña RN Unavailable [phone] Ruth Ann Price Unavailable Unavailable Ruth Ann Price Unavailable Ruth Ann Price Unavailable Encounter Details Date Type Department Care Team (Late st Contact Info) Description 12/13/2023 Orders Only [facility] MEDICINE 230 [place] [address] Mackenzie Estrada MD 230 [place], [place] [phone] Pain in both hands Social History Tobacco [...] Description 06/07/2025 3:45 PM EST Office Visit [address] [address] Mackenzie Estrada MD [address] [place] [address] 07/09/2025 9:45 AM EST Office Visit [address] [address] documented as of this encounter Goals Goal Patient Goal Type Associated Problems Recent Progress Patient-Stated? Author Quit using tobacco (cigarettes, smokeless, etc) Tobacco Use Corey Cornell, Bailey documented as of this encounter Visit Diagnoses Diagnosis Pain in both hands documented in this encounter Care Teams Optical Lens Manufacturing Tech Relationship Specialty Start Date End Date Mackenzie Estrada MD [address] [place] [address] PCP - General Family Medicine 07/10/20 Casper Magaña, JENNIFER 505 [place] [address] Registered Nurse Family Medicine 01/18/25 01/18/25 Ruth Ann Price 02/19/25 02/19/25 Ruth Ann Price 02/19/25 02/28/25 Ruth Ann Price 03/29/25 04/03/25 Hemalatha Pretty Remote Encoding Center ManagerAutomobile Body Repair Chief 01/02/25 documented as of this encounter
--- OUTSIDE RECORDS SUMMARY | 2025-05-16 15:09 | XMS_ITS | Encounter Summary ---
Author Organization [employer] Address [address] [facility] 7t [place] [address] Care Team Providers Care Production Manager Name Role Phone Mackenzie Estrada MD Primary Care Provider [phone] Reason for Visit * Reason Onset Date Comments Med Refill 05/14/2025 [employer] Agreement renewed today 05/14/2025 Encounter Details Date Type Department Care Team ([facility] st Contact Info) Description 05/14/2025 Refill [facility] 230 [place], [place] [phone] Kaylene Samano RN Osteonecrosis of hip with [...] came to chronic pain group today [facility] Agreement reviewed and signed. BPI updated today. Pain severity score of 10, activity interference score of 9. Previous BPI completed 12/11/24 with pain severity score of 10, activity interference score of 9. documented in this encounter Plan of Treatment Upcoming Encounters Date Type Department Care Team (Late st Contact Info) Description 06/07/2025 3:45 PM EST Office Visit [facility] [address] [place] [address] Mackenzie Estrada MD [address] [place] [address] 07/09/2025 9:45 AM EST Office Visit [facility] [address] [place] [address] documented as of this encounter Goals Goal [...] documented as of this encounter Care Teams Production Manager Relationship Specialty Start Date End Date Mackenzie Estrada MD [address] [place] [address] PCP - General Family Medicine 07/10/20 Hemalatha Pretty Human Services Care SpecialistBen Day Artist 01/02/25 documented as of this encounter
--- OUTSIDE RECORDS SUMMARY | 2025-05-16 15:09 | XMS_ITS | Encounter Summary ---
Author Organization [employer] Address 75 [facility] 7t [place] [address] Care Team Providers Care Truck Manager Name Role Phone Mackenzie Estrada MD Primary Care Provider [phone] Reason for Visit * Reason Comments Med Refill Encounter Details Date Type Department Care Team ([facility] Contact Info) Description 05/14/2025 Refill [facility] 230 [place], [place] [phone] Mackenzie Estrada MD 230 [place], [place] [phone] Subacute cough Social History Tobacco Use Types [...] 3:45 PM EST Office Visit [facility] MEDICINE [address] [place] [address] Mackenzie Estrada MD [address] [place] [address] 07/09/2025 9:45 AM EST Office Visit [facility] MED[facility]INE [address] [place] [address] documented as of this encounter Goals Goal [...] documented as of this encounter Care Teams Truck Manager Relationship Specialty Start Date End Date Mackenzie Estrada MD [address] [place] [address] PCP - General Family Medicine 07/10/20 Hemalatha Pretty Gelatin Powder MixerBusiness Reporter 01/02/25 documented as of this encounter
--- OUTSIDE RECORDS SUMMARY | 2025-05-16 15:09 | XMS_ITS | Encounter Summary ---
Author Organization [employer] Address [address] [facility] 7t [place] [address] Care Team Providers Care Lye Boiler Name Role Phone Mackenzie Estrada MD Primary Care Provider [phone] Ruth Ann Price Unavailable Unavailable Ruth Ann Price Unavailable Ruth Ann Price Unavailable Reason for Visit * Reason Comments Med Refill Encounter Details Date Type Department Care Team ([facility] st Contact Info) Description 01/24/2025 Refill [facility] 230 [place] [address] Ebony Daigle MD 230 [place], [place] [phone] Rheumatoid arthritis involving multiple sites with positive rheumatoid factor ([facility]) Social History Tobacco Use Types [...] Description 06/07/2025 3:45 PM EST Office Visit [address] [address] Mackenzie Estrada MD [address] [place] [address] 07/09/2025 9:45 AM EST Office Visit [address] [address] documented as of this encounter Goals Goal Patient Goal Type Associated Problems Recent Progress Patient-Stated? Author Quit using tobacco (cigarettes, smokeless, etc) Tobacco Use No Corey Lin, Bailey documented as of this encounter Visit Diagnoses Diagnosis Rheumatoid arthritis involving multiple sites with positive rheumatoid factor (CMS/HCC) ([facility]) documented in this encounter Additional Health Concerns Assessment Noted Time PHQ-9 Depression Total Score: 2 04/30/20 24 10:41 AM EDT documented as of this encounter Care Teams Lye Boiler Relationship Specialty Start Date End Date Mackenzie Estrada MD [address] [place] [address] PCP - General Family Medicine 07/10/20 Ruth Ann Price 02/19/25 02/19/25 Ruth Ann Price 02/19/25 02/28/25 Ruth Ann Price 03/29/25 04/03/25 Hemalatha Pretty Coater Carbon PaperSupervisor Cap And Hat Production 01/02/25 documented as of this encounter
--- OUTSIDE RECORDS SUMMARY | 2025-05-16 15:09 | XMS_ITS | Encounter Summary ---
Author Organization [employer] Address [address] [facility] 7t [place] [address] Care Team Providers Care Riveter Helper Name Role Phone Mackenzie Estrada MD Primary Care Provider [phone] Casper Magaña RN Unavailable [phone] Ruth Ann Price Unavailable Unavailable Ruth Ann Price Unavailable Ruth Ann Price Unavailable Reason for Referral * Imaging (Routine) - Closed Specialty Diagnoses / Procedures Referred By Contac t Referred To Contact Radiology Diagnoses Abnormal ultrasound of pelvis Procedures MR Pelvis w/ and w/o Contrast Mackenzie Estrada MD 230 [place] [address] Phone: tel: fax: [address] Phone: tel: fax: Referral ID Status Reason Start Date Expiration Date Visits Re quested Visits Authorized [id number] Closed 10/31/2023 10/30/2024 1 1 Encounter Details Date Type Department Care Team (Late st Contact Info) Description 10/31/2023 Orders Only [facility] MED[facility]INE 230 [place], [place] [phone] Mackenzie sEtrada MD 230 [place], [place] [phone] Abnormal ultrasound of pelvis (Primary Dx) Social [...] which I need to talk to her election watcher about. Thank you! documented in this encounter Plan of Treatment Upcoming Encounters Date Type Department Care Team (Late st Contact Info) Description 06/07/2025 3:45 PM EST Office Visit [address] [address] Mackenzie Estrada MD [address] [place] [address] 07/09/2025 9:45 AM EST Office Visit [address] [address] documented as of this encounter Goals Goal [...] PM EDT Narrative 12/07/2023 9:11 AM EDT [address] [address] Magnetic Resonance Report Signed Patient: Ginette Arceo MR #: [id number] : 1975 Acct:[id number] Age/Sex: 48 / F ADM Date: 11/25/23 Loc: HO.MRI Attending Dr: Mackenzie Estrada MD Ordering Physician: Mackenzie Estrada Date of Service: 11/25/23 Procedure(s): MR pelvis wo/w con Accession Number(s): [id number] cc: Mackenzie Estrada EXAMINATION: MR PELVIS WITHOUT [...] measures 7.8 x 3.6 x 4.3 cm (yeaikf-eb-zhdxdn x AP x transverse dimension). The junctional [...] in OV> 12/07/23 0907 DD/ 1505 TD/TT: Truck Unloader: PD Procedure Note Donotuseinterpreter, Image - 12/07/[address] [address] Magnetic Resonance Report Signed Patient: Ginette ArceoMR #: [id number] : 1975Acct:[id number] Age/Sex: 48 / FADM Date: 11/25/23 Loc: HO.MRI Attending Dr: Mackenzie Estrada MD Ordering Physician: Mackenzie Estrada Date of Service: 11/25/23 Procedure(s): MR pelvis wo/w con Accession Number(s): [id number] cc: Mackenzie Estrada EXAMINATION: MR PELVIS WITHOUT [...] measures 7.8 x 3.6 x 4.3 cm (ctwdvd-fm-ierpux x AP x transverse dimension). The junctional [...] in OV> 12/07/23 0907 DD/ 1505 TD/TT: Truck Unloader: PD Mackenzie Estrada MD IMG MRI PROCEDURES Final Resul t documented in this encounter Visit Diagnoses Diagnosis Abnormal ultrasound of pelvis- Primary documented in this encounter Care Teams Riveter Helper Relationship Specialty Start Date End Date Mackenzie Estrada MD 230 [place] [address] PCP - General Family Medicine 07/10/20 Casper Magaña, RN [address] [place] [address] Registered Nurse Family Medicine 01/18/25 01/18/25 Ruth Ann Price 02/19/25 02/19/25 Ruth Ann Price 02/19/25 02/28/25 Ruth Ann Price 03/29/25 04/03/25 Hemalatha Pretty Poacher OperatorTechnical Asst 01/02/25 documented as of this encounter
--- OUTSIDE RECORDS SUMMARY | 2025-05-16 15:09 | XMS_ITS | Encounter Summary ---
Author Organization [employer] Address [address] [facility] 7t [place] [address] Care Team Providers Care It Coordinator Name Role Phone Mackenzie Estrada MD Primary Care Provider [phone] Reason for Visit * Reason Comments Med Refill Encounter Details Date Type Department Care Team ([facility] Contact Info) Description 04/07/2025 Refill [facility] MED[facility]INE 230 [place] [address] Mackenzie Estrada MD 230 [place] [address] Social History Tobacco Use Types Packs/Day Years [...] Description 06/07/2025 3:45 PM EST Office Visit [facility] MEDICINE [address] [place] [address] Mackenzie Estrada MD [address] [place] [address] 07/09/2025 9:45 AM EST Office Visit [address] [address] documented as of this encounter Goals Goal [...] as of this encounter Care Teams It Coordinator Relationship Specialty Start Date End Date Mackenzie Estrada MD [address] [place] [address] PCP - General Family Medicine 07/10/20 Hemalatha Pretty Tare WorkerEnergy Crop Farmer 01/02/25 documented as of this encounter
--- OUTSIDE RECORDS SUMMARY | 2025-05-16 15:09 | XMS_ITS | Encounter Summary ---
Author Organization [employer] Address [address] [facility] [address] 7t [place] [address] Care Team Providers Care Contracts Officer Name Role Phone Mackenzie Estrada MD Primary Care Provider [phone] Casper Magaña RN Unavailable [phone] Ruth Ann Price Unavailable Unavailable Ruth Ann Price Unavailable Ruth Ann Price Unavailable Encounter Details Date Type Department Care Team (Late st Contact Info) Description 10/03/2023 Orders Only [facility] MEDICINE 230 [place] [address] Mackenzie Estrada MD 230 [place], [place] [phone] Bacterial vaginosis (Primary Dx) Social History Tobacco [...] Description 06/07/2025 3:45 PM EST Office Visit [address] [address] Mackenzie Estrada MD [address] [place] [address] 07/09/2025 9:45 AM EST Office Visit [address] [address] documented as of this encounter Goals Goal Patient Goal Type Associated Problems Recent Progress Patient-Stated? Author Quit using tobacco (cigarettes, smokeless, etc) Tobacco Use No Corey Lin, KelechiD documented as of this encounter Visit Diagnoses Diagnosis Bacterial vaginosis- Primary Unspecified vaginitis and vulvovaginitis documented in this encounter Care Teams Contracts Officer Relationship Specialty Start Date End Date Mackenzie Estrada MD [address] [place] [address] PCP - General Family Medicine 07/10/20 Casper Magaña RN [address] [place] [address] Registered Nurse Family Medicine 01/18/25 01/18/25 Ruth Ann Price 02/19/25 02/19/25 Ruth Ann Price 02/19/25 02/28/25 Ruth Ann Price 03/29/25 04/03/25 Hemalatha Pretty Fourth MateSewing Machine Attachment Tester 01/02/25 documented as of this encounter
--- OUTSIDE RECORDS SUMMARY | 2025-05-16 15:09 | XMS_ITS | Encounter Summary ---
Author Organization [employer] Address [address] [facility] 7t [place] [address] Care Team Providers Care Stained Glass Joiner Name Role Phone Mackenzie Estrada MD Primary Care Provider [phone] Casper Magaña RN Unavailable [phone] Ruth Ann Price Unavailable Unavailable Ruth Ann Price Unavailable Ruth Ann Price Unavailable Reason for Visit * Reason Comments Med Refill Encounter Details Date Type Department Care Team (Late st Contact Info) Description 06/02/2023 Refill [facility] MED[facility]INE 230 [place] [address] Mackenzie Estrada MD 230 [place], [place] [phone] Pain in both hands Social History Tobacco [...] 06/07/2025 3:45 PM EST Office Visit [address] [address] Mackenzie Estrada MD [address] [place] [address] 07/09/2025 9:45 AM EST Office Visit [address] [address] documented as of this encounter Goals Goal Patient Goal Type Associated Problems Recent Progress Patient-Stated? Author Quit using tobacco (cigarettes, smokeless, etc) Tobacco Use No Corey Lin, Bailey documented as of this encounter Visit Diagnoses Diagnosis Pain in both hands documented in this encounter Care Teams Stained Glass Joiner Relationship Specialty Start Date End Date Mackenzie Estrada MD [address] [place] [address] PCP - General Family Medicine 07/10/20 Casper Magaña, JENNIFER [address] [place] [address] Registered Nurse Family Medicine 01/18/25 01/18/25 Ruth Ann Price 02/19/25 02/19/25 Ruth Ann Price 02/19/25 02/28/25 Ruth Ann Price 03/29/25 04/03/25 Hemalatha Pretty Director Of CommunicationsPipeline Gang Supervisor 01/02/25 documented as of this encounter
--- OUTSIDE RECORDS SUMMARY | 2025-05-16 15:09 | XMS_ITS | Clinical Summary ---
Author Organization [employer] Address [address] [facility] [address] [place] [address] Care Team Providers Care Job Developer For Deaf Adults Name Role Phone Mackenzie Estrada MD Primary Care Provider [phone] Allergies Active Allergy Reactions Criticality Noted Date Comments [place] (Diagnostic) 05/23/2020 [place] Oil Anaphylaxis High 07/19/2022 Morphine 06/02/2015 Other [...] 05/26/20 22 Active Sharps Container (GUARDIAN Sharps Reforestation Worker) misc 06/15/20 22 Active Vitamin D High Potency 25 MCG (1000 UT) capsule Take 25 mcg by mouth in the morning. 12/11/19 23 Active beta carotene (vitamin A) 3 MG (69822 UT) capsule Take by mouth in the [...] 112 tablet 05/16/20 25 025 Active Umeclidinium [place] (Incruse Ellipta) 62.5 MCG/ACT aerosol powderIndicati ons:Subacute cough INHALE 1 PUFF BY MOUTH EVERY DAY AT THE SAME TIME 1 each 04/23/20 24 025 Discontinued oxyCODONE-acet aminophen (Percocet) 7.5-325 MG tabletIndicati ons:Osteonecro sis of hip with collapse of femoral head present on x-ray (HCC) Take 1 tablet by mouth every 6 (six) hours if needed for severe pain for up to 28 days. Do not start before April 18, 2025. 112 tablet 04/18/20 025 Discontinued(R eorder (will not trigger notification [...] antibiotics. Patient should continue RA treatment with can patcher, avoid trauma to elbows. Cervical paraspinal muscle spasm 01/24/2025 Long-term current use of opiate analgesic 2024 Overview (05/14/2025): Medication: Percocet 7.5/325mg Q6H PRN Indication: Rheumatoid arthritis Last AUTOMOBILE LEASING SUPERVISOR Agreement: 05/14/25 Tier: II (Q3 months [...] 8:21 AM EST): Has Narcan at home AUTOMOBILE LEASING SUPERVISOR agreement UTD Seeing group pain visits for AUTOMOBILE LEASING SUPERVISOR Assessment & Plan (09/11/2024 5:03 PM EST): [...] ng right hand with positive rheumatoid factor ([facility]) 01/26/2024 Overview (08/14/2024): - Following with [facility] Rheum: Dr. Castro Assessment & Plan (01/26/2024 [...] to go back to her previous dose, AUTOMOBILE LEASING SUPERVISOR nurse informed about my plan, I [...] pt f w Dr. Corley, rheum at [facility] - Actemra infusions ( Tocilizumab) 8mg/kg every 4 weeks - methotrexate 25mg every week - Folic acid 1 mg every day -percocet 7.5/325 1 tab Q6 h -I called today her Deputy Assessor # [phone] --got apt and requested transportation to [facility] RN -apt w can patcher in 2 days this Tuesday03/08/2025 at 1 h 40 at [address] [facility] ,[address] -start prednisone 20 mg [...] thrombosis) 05/23/2020 Overview (09/28/2023): 01/2005 Right Subclavain [facility] current use of anticoagulant 0 Personal history of Hodgkin lymphoma 05/09/2020 Axillary lymphadenopathy 05/09/2020 Acute deep vein thrombosis ( DVT) of brachial vein of right upper extremity 03/07/2020 Lymphadenopathy, generalized 03/07/2020 Migraine without status migrainosus, not intract able 12/06/2017 Paresthesia and pain of left extremity 8 Gastroesophageal reflux disease 06/03/2017 Rheumatoid arthritis involving multiple sites (C MS/HCC) 06/03/2017 Overview (03/12/2025): - Following with [facility] Rheumatology: Dr. Corley Assessment & Plan (05/14/2025 [...] PM EDT): Primarily managed by Rheum at [facility] Continue to take Oulimiant 2mg, Methotrexate 20mg [...] not as effective -I spoke today with [facility] staff today ( Shahla) and confirmed they do have remdesivir which will be the best options for tx for this pt , ER at [facility] are expecting pt for evaluation. [...] week as per Rheumatology. Rx sent to [facility] and they will continue [...] organization. Date Type Department Care Team Description 05/16/2025 10:30 AM EDT Office Visit [facility] [address] [place] [phone] Aura Vu NP Pre-op examination (Primary Dx) 05/16/2025 Orders Only GENERIC EXTERNAL DATA DEPARTMENT Provider, Generic External Data 05/16/2025 Travel 05/14/2025 1:00 PM EDT Office Visit [facility] [address] [place] [phone] Raoul Hills MD Precordial pain (Primary Dx); Chest pain, unspecified type 05/14/2025 9:45 AM EDT Office Visit [facility] [address] [place] [phone] Sisi Kennedy FNP Rheumatoid arthritis involving multiple sites with positive rheumatoid factor (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) 04/15/2025 Refill [facility] [address] [place] [phone] Mackenzie Estrada MD 04/12/[address] [address] Mackenzie Estrada MD 04/11/2025 Refill [facility] [address] [place] [phone] Mackenzie Estrada MD 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 ([facility]) 04/09/2025 10:40 AM EDT Office Visit [facility] [address] [place] [phone] David Jensen MD Nodule of skin of both upper extremities (Primary Dx) 04/09/2025 Orders Only [facility] [address] [place] [phone] David Jensen MD 04/09/[address] [address] Sisi Kennedy FNP Seborrheic dermatitis 04/09/2025 Travel 04/09/[address] [address] Mackenzie Estrada MD Nurse Triage 04/07/[address] [address] Mackenzie Estrada MD 04/05/2025 Results Follow-Up [facility] [address] [place] [address] Sisi Kennedy FNP CBC auto differential 04/04/2025 Results Follow-Up [address] [address] Marychuy Bonilla ANP XR Elbow 3+ Views Left 04/04/2025 Orders Only GENERIC EXTERNAL DATA DEPARTMENT Provider, Generic External Data 04/03/2025 11:15 AM EDT Office Visit [address] [address] Sisi Kennedy FNP Nodule of skin of both upper extremities (Primary Dx) 04/03/2025 Patient Outreach [facility] [address] [place] [address] Mackenzie Estrada MD Care Coordination (Communication to patient assigned CP Coordinator ) 04/03/2025 Travel 04/02/[address] [address] Sisi Kennedy FNP CHART PREP 03/29/2025 Patient Outreach [facility] [address] [place] [address] Mackenzie Estrada MD Care Coordination ([facility] ED Follow Up) 03/29/2025 Patient Outreach [facility] [address] [place] [address] Mackenzie Estrada MD Care Coordination (CP Care Coordination Chart Review) 03/29/2025 Patient Outreach [facility] [address] [place] [phone] Mackenzie Estrada MD 03/18/[address] [address] Livia Amos MD 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 ([facility]) 03/14/2025 Refill [facility] [address] [place] [phone] Livia Amos MD 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 ([facility]) 03/13/[address] [address] Mackenzie Estrada MD 03/12/2025 9:45 AM EDT Office Visit [address] [address] Sisi Kennedy FNP Rheumatoid arthritis involving multiple sites with positive rheumatoid factor ([facility]) (Primary Dx); Long-term current use of opiate analgesic; Seborrheic dermatitis 03/12/2025 Travel 03/06/2025 2:00 PM EDT Office Visit [facility] [address] [place] [phone] Livia Hooper MD Inflammatory arthritis (Primary Dx) 03/06/[address] [address] Mackenzie Estrada MD pt1 (PT-1 Request [id number] Pending . For pending submissions, please check the portal periodically for updates. ) 03/06/2025 Telephone [facility] [address] [place] [address] Livia Hooper MD 03/06/2025 Travel 03/05/2025 Telephone [facility] [address] [place] [phone] Mackenzie Estrada MD Nurse Triage 02/28/2025 Patient Outreach [facility] [address] [place] [address] Mackenzie Estrada MD Care Coordination (CP/ Communication to pt assigned CP Coordinator) 02/21/2025 Refill [facility] [address] [place] [phone] Kaylene Samano RN 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 ([facility]) 02/21/2025 Telephone [facility] [address] [place] [phone] Mackenzie Estrada MD Med Refill 02/19/2025 Patient Outreach [facility] [address] [place] [address] Mackenzie Estrada MD Care Coordination ([facility] ED /F/U) 02/19/2025 Patient Outreach [facility] [address] [place] [address] Mackenzie Estrada MD Care Coordination ([facility] Early Morning Babysitter / Chart Review) 02/19/2025 Patient Outreach [facility] [address] [place] [phone] Mackenzie Estrada MD 02/19/2025 Patient Outreach [facility] [address] [place] [phone] Mackenzie Estrada MD 02/18/2025 Refill [facility] [address] [place] [address] Mackenzie Estrada MD 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 ([facility]) 02/18/2025 Orders Only GENERIC EXTERNAL DATA DEPARTMENT Provider, Generic External Data 02/14/2025 Refill [facility] [address] [place] [phone] Mackenzie Estrada MD from Last 3 Months [...] Mass Index 34.79 05/16/2025 11:10 AM EDT Plan of Treatment Upcoming Encounters Date Type Department Care Team (Late st Contact Info) Description 06/07/2025 3:45 PM EST Office Visit [address] [address] Mackenzie Estrada MD [address] [place] [phone] 07/09/2025 9:45 AM EST Office Visit [address] [address] Health Maintenance Due Date Last Done Comments [...] Tobacco Screening 04/09/2026 04/09/2025 Lipid Panel 09/14/2026 05/16/2025, 09/14/2021 DTaP/Tdap/Td Vaccines (2 - Td or [...] Routine 05/16/2025 1:03 PM EDT Pre-op examination LIPID PANEL, STANDARD Routine 05/16/2025 12:03 PM EDT PROTHROMBIN TIME-INR Routine 05/16/2025 12:03 PM EDT Pre-op examination APTT Routine 05/16/2025 12:03 PM EDT Pre-op examination COMPREHENSIVE METABOLIC PANEL Routine 05/16/2025 12:03 PM EDT Pre-op examination ECG 12-LEAD Routine 05/15/2025 11:00 AM EDT Precordial pain Chest pain, unspecified type POCT GALLO-14 URINE DRUG SCREEN Routine 05/14/2025 [...] involving multiple sites with positive rheumatoid factor ([facility]) Long-term current use of opiate analgesic URINALYSIS, [...] 8:49 AM EDT HEPATIC FUNCTION PANEL Routine 07/21/202 5 8:49 AM EDT C-REACTIVE PROTEIN Routine 02/18/2025 [...] Recently Relevant to Health Maintenance Results * CBC auto differential (05/16/2025 1:03 PM EDT) Only the most recent of5 resultswithin the time period is included. White Blood Count 6.1 4.8 - 10.8 X10*3/uL [facility] Red Blood Count 4.26 4.20 - 5.50 X10*6/uL [facility] Hemoglobin 13.0 12.0 - 16.0 g/dl [facility] Hematocrit 40.2 37.0 - 47.0 % [facility] Mean Corpuscular Volume 94.4 80.0 - 98.0 fL [facility] Mean Corpuscular Hemoglobin 30.5 27.0 - 33.0 pg [facility] Mean Corpuscular HGB Conc 32.3 31.0 - 35.0 g/dl [facility] Red Cell Distribution Width 14.6 11.0 - 16.0 % [facility] Platelet Count 227 160 - 400 X10*3/uL [facility] Mean Platelet Volume 10.3 9.4 - 12.3 fL [facility] Neutrophils Percent Auto 56.1 45 - 73 % [facility] Imm Gran Pct Auto 0.2 0.0 - 0.4 % [facility] Lymphocytes Percent Auto 36.4 20 - 40 % [facility] Monocytes Percent Auto 5.9 2 - 11 % [facility] Eosinophils Percent Auto 1.1 0 - 4 % [facility] Basophils Percent Auto 0.3 0 - 2 % [facility] NRBC Pct Auto 0.0 0.0 - 0.2 /100WBC [facility] Neutrophils Absolute Auto 3.4 2.0 - 8.3 x10*3/uL [facility] Imm Gran Abs Auto 0.01 0.00 - 0.03 X10*3/uL [facility] Lymphocytes Absolute Auto 2.2 1.2 - 4.9 X10*3/uL [facility] Monocytes Absolute Auto 0.4 0.1 - 1.2 X10*3/uL [facility] Eosinophils Absolute Auto 0.1 0.0 - 0.4 X10*3/uL [facility] Basophils Absolute Auto 0.0 0.0 - 0.2 X10*3/uL [facility] NRBC Abs Auto 0.000 0.0 - 0.012 X10*3/uL [facility] Blood Venous blood specimen / Unknown 05/16/2025 1:03 PM EDT 05/16/2025 1:11 PM EDT [facility] LAB BLOOD ORDERABLES Final Resu lt Performing Organization Address [facility]/ZIP Co de Phone Number [facility] [address] [place] [phone] * Partial Thromboplastin Time, Activated (APTT) (05/16/2025 12:03 PM EDT) Partial Thromboplastin Time 31.1 26.7 - 34.1 SEC [facility] Blood Venous blood specimen / Unknown 05/16/2025 12:03 PM EDT 05/16/2025 1:11 PM EDT [facility] LAB BLOOD ORDERABLES Final Resu lt Performing Organization Address [facility] Co de Phone Number [facility] [address] [place] [phone] * (ABNORMAL) Prothrombin Time-INR (05/16/2025 12:03 PM EDT) Prothrombin Time 13.0(H) 10.9 - 12.4 SEC [facility] INTERNATIONAL NORM RATIO 1.1 0.9 - 1.1 [facility] Comment:INTERNATIONAL NORMAL IZED RATIO (INR) [...] 12:03 PM EDT 05/16/2025 1:11 PM EDT us Aura Vu KERSEY DEPARTMENT SUPERVISOR LAB BLOOD ORDERABLES Final Resu lt Performing Organization Address [facility]/ZIP Co de Phone Number [facility] [address] [place] [phone] [phone] * (ABNORMAL) Lipid Panel, Standard (05/16/2025 12:03 PM EDT) Triglycerides 154(H) <150 mg/dL [facility] Comment:Desirable Triglyceri de: less than 150 mg/dLBorderline High Triglyceride 150-199 mg/dLHigh Triglyceride: 200-499 mg/dLVery High Triglyceride: greater than or equal to 5OO mg/dL Cholesterol 261(H) <200 mg/dL [facility] Comment:Desirable Cholestero l: less than 200 mg/dLBorderline High Cholesterol: 200-239 mg/dLHigh Cholesterol: greater than 239 mg/dL LDL Cholesterol Calculated 179(H) <100 mg/dL [facility] Comment:Desirable LDL: less than 100 mg/dLNear Optimal/Above Optimal LDL: 110- 129 mg/dLBorderline High LDL: 130-159 mg/dLHigh LDL: 160-189 mg/dLVery High LDL: greater than or equal to 190 mg/dL HDL Cholesterol 52 >40 mg/dL [facility] Comment:Desirable HDL: great er than 40 mg/dL Note: This HDL assay may give artificially low results in patients with liver disease. 05/16/2025 12:0 3 PM EDT 05/16/2025 1:31 PM EDT us Generic External Data Provider LAB BLOOD ORDERAB LES Final Result Performing Organization Address [facility]/ZIP Co de Phone Number [facility] [address] [place] [phone] * (ABNORMAL) Comprehensive Metabolic Panel (05/16/2025 12:03 PM EDT) Only the most recent of2 resultswithin the time period is included. Sodium 142 135 - 145 mmol/L [facility] Potassium 4.1 3.3 - 5.1 mmol/L [facility] Chloride 107 96 - 108 mmol/L [facility] Carbon Dioxide 27 22 - 29 mmol/L [facility] Anion Gap 12 12 - 20 [facility] Urea Nitrogen (BUN) 13 9 - 16 mg/dL [facility] Creatinine, Serum 0.63 0.5 - 1.4 mg/dL [facility] Estimated Glomerular Filt Rate >60 [facility] Comment:Chronic Kidney Disea se: Estimated GFR < 60 mL/min/[id number] Kidney Disease: Estimated GFR < 15 mL/min/1.73m2 Glucose 84 60 - 115 mg/dL [facility] Calcium 9.7 8.4 - 10.2 mg/dL [facility] Bilirubin, Total 0.3 0.0 - 1.0 mg/dL [facility] Aspartate Amino Transferase 33(H) 5 - 31 U/L [facility] Alanine Aminotransferase 27 0 - 31 U/L [facility] Total Protein 9.2(H) 6.5 - 8.0 g/dL [facility] Albumin Level 4.7 3.5 - 5.0 g/dL [facility] Alkaline Phosphatase 81 39 - 117 U/L [facility] Blood Venous blood specimen / Unknown 05/16/2025 12:03 PM EDT 05/16/2025 1:31 PM EDT us Aura Vu NP LAB BLOOD ORDERABLES Final Resu lt [facility] [address] [place] [phone] * ECG 12 lead (05/15/2025 11:00 AM EDT) Narrative Raoul Hills MD - 05/15/2025 11:00 AM EDT NSR, HR 76 BPM LAFB Raoul Reed MD ECG ORDERABLES Final Result * (ABNORMAL) POCT GALLO-14 Urine [...] Unknown 05/14/2025 9:27 AM EDT Sisi Kennedy DRIER TRANSFER CAR OPERATOR POINT OF CARE TEST ENTER/EDIT ORDERABLES Edited Result - Final * Gram Stain Result (04/09/2025 12:20 PM EDT) 04/09/2025 12:2 0 PM EDT 04/10/2025 12:26 PM EDT Comment:Jazmin Ramirez Narrative [facility] - 04/12/2025 8:06 AM EDT Gram stain results: No polys 1+ epithelial cells No organisms seen Routine Culture No growth after 2 days Specimen Source: Jazmin Benitez David Jensen MD HISTORICAL/NON ORDERABLE LABS Fi nal Result [facility] [address] [place] [address] [phone] * Urinalysis w/reflex microscopic (04/04/2025 10:30 AM EDT) Color Urine Yellow [facility] Appearance Urine Clear [facility] PH 5.0 5.0 - 9.0 [facility] Glucose Urine UA Negative Negative mg/dL [facility] Urine Blood Negative Negative [facility] Specific [place] - Urine 1.020 1.005 - 1.025 [facility] Urine Protein Negative Neg-Trace mg/dL [facility] Urine Ketones Negative Negative mg/dL [facility] Nitrite Urine Negative Negative [facility] Leukocyte Esterase Urine Negative Negative [facility] 04/04/2025 10:3 0 AM EDT 04/04/2025 11:09 AM EDT Narrative [facility] - 04/04/2025 11:25 AM EDT Urine, Clean Catch us Generic External Data Provider LAB URINE ORDERAB LES Final Result Performing Organization Address [facility] Co de Phone Number [facility] [address] [place] [address] [phone] * (ABNORMAL) Uric acid (04/04/2025 10:30 AM EDT) Uric Acid 6.3(H) 2.4 - 5.7 mg/dL [facility] 04/04/2025 10:3 0 AM EDT 04/04/2025 11:15 AM EDT us Generic External Data Provider LAB BLOOD ORDERAB LES Final Result Performing Organization Address [facility] Co de Phone Number [facility] [address] [place] [address] [phone] * Lactate Dehydrogenase (LD) (04/04/2025 10:30 AM EDT) Lactate Dehydrogenase 130 122 - 220 U/L [facility] 04/04/2025 10:3 0 AM EDT 04/04/2025 11:15 AM EDT us Generic External Data Provider LAB BLOOD ORDERAB LES Final Result Performing Organization Address [facility] Co de Phone Number [facility] [address] [place] [phone] * Hepatic Function Panel (04/04/2025 10:30 AM EDT) Only the most recent of2 resultswithin the time period is included. Bilirubin, Direct 0.1 0.0 - 0.5 mg/dL [facility] 04/04/2025 10:3 0 AM EDT 04/04/2025 11:15 AM EDT us Generic External Data Provider LAB BLOOD ORDERAB LES Final Result [facility] [address] [place] [phone] * XR Elbow 3+ Views Left (04/04/2025 10:14 AM EDT) Anatomical Region Laterality Modality Upper Extremities, Elbow Left Radiogr aphic Imaging 04/04/2025 10:1 4 AM EDT Narrative 04/04/2025 11:12 AM EDT [address] [address] XRay Report Signed Patient: Ginette Arceo MR #: [id number] : 1975 Acct:[id number] Age/Sex: 49 / F ADM Date: 04/04/25 Loc: HO.HHCX Attending Dr: Marychuy Bonilla NP Ordering Physician: MARYCHUY BONILLA NP Date of Service: 04/04/25 Procedure(s): XR elbow LT min 3V Accession Number(s): [id number] cc: Mackenzie Estrada; MARYCHUY BONILLA NP Reason [...] 04/04/25 1109 DD/ 1014 TD/TT: 04/04/25 1102 [employer] Lecturer: Procedure Note Donotuseinterpreter, Image - 04/04/[address] [address] XRay Report Signed Patient: Ginette ArceoMR #: [id number] : 1975Acct:[id number] Age/Sex: 49 / FADM Date: 04/04/25 Loc: HO.HHCX Attending Dr: Marychuy Bonilla NP Ordering Physician: MARYCHUY BONILLA NP Date of Service: 04/04/25 Procedure(s): XR elbow LT min 3V Accession Number(s): [id number] cc: Mackenzie Estrada; MARYCHUY BONILLA NP Reason [...] 04/04/25 1109 DD/ 1014 TD/TT: 04/04/25 1102 [employer] Lecturer: Marychuy Bonilla ANP IMG XR PROCEDURES Final Result * (ABNORMAL) Urinalysis, Complete, with Reflex to Culture (02/18/2025 10:44 AM EDT) Color Urine Yellow [facility] Appearance Urine Clear [facility] PH 6.0 5.0 - 9.0 [facility] Glucose Urine UA Negative Negative mg/dL [facility] Urine Blood Negative Negative [facility] Specific [place] - Urine 1.020 1.005 - 1.025 [facility] Urine Protein Negative Neg-Trace mg/dL [facility] Urine Ketones Negative Negative mg/dL [facility] Nitrite Urine Negative Negative [facility] Leukocyte Esterase Urine Small (1+)(A) Negative [facility] RBC Urine 0-2 0 - 2 /HPF [facility] Urine WBC 6-10(A) 0 - 5 /HPF [facility] [facility] Urine Squamous Epithelial Cell 11-20 0 - 2 /HPF [facility] Urine Bacteria Trace None Seen [facility] Hyaline Casts, Urine 0-2 0 - 2 /LPF [facility] 02/18/2025 10:4 4 AM EDT 02/18/2025 10:49 AM EDT [facility] LABS - 02/18/2025 10:57 AM EDT [id number], Clean Catch us Generic External Data Provider LAB URINE ORDERAB LES Final Result Performing Organization Address City/State/[facility] Co de Phone Number [facility] [address] [place] [phone] * VASC US Lower Extremity Venous Duplex Bilateral (02/18/2025 9:50 AM EDT) 02/18/2025 9:50 AM EDT [facility] IMAGING - 02/18/2025 10:27 AM EDT [address] [address] Ultrasound Report Signed Patient: Ginette Arceo MR #: [id number] : 1975 Acct:[id number] Age/Sex: 49 / F ADM Date: 02/18/25 Loc: HO.ED Attending Dr: Ordering Physician: Jana Mcdaniel Date of Service: 02/18/25 Procedure(s): US venous duplex LE BI Accession Number(s): [id number] cc: Mackenzie Estrada; Jana Mcdaniel EXAMINATION: US [...] 02/18/25 1024 DD/ 0950 TD/TT: 02/18/25 1010 [employer] Lecturer: Procedure Note Donotuseinterpreter, Image - 02/18/[address] [address] Ultrasound Report Signed Patient: Ginette ArceoMR #: [id number] : 1975Acct:[id number] Age/Sex: 49 / FADM Date: 02/18/25 Loc: HO.ED Attending Dr: Ordering Physician: Jana Mcdaniel Date of Service: 02/18/25 Procedure(s): US venous duplex LE BI Accession Number(s): [id number] cc: Mackenzie Estrada; Jana Mcdaniel EXAMINATION: US [...] 02/18/25 1024 DD/ 0950 TD/TT: 02/18/25 1010 [employer] Lecturer: [facility] External Provider CV VASC ULAR PROCEDURES Final Result [facility] [address] [place] [phone] * High Sensitivity Troponin I (02/18/2025 8:49 AM EDT) TROPONIN I HIGH SENSITIVITY <2.7 <3.5 - 17.0 ng/L [facility] Comment:The Shea high sens itivity Troponin-I results should beused in conjunction with other diagnostic information suchas ECG, clinical observations and information, and patientsymptoms to aid in the diagnosis of NC. 02/18/2025 8:49 AM EDT 02/18/2025 8:54 AM EDT Generic External Data Provider LAB BLOOD ORDERAB LES Final Result Performing Organization Address [facility]/ZIP Co de Phone Number [facility] [address] [place] [phone] * SARS-CoV-2 RNA, Influenza A/B, and RSV RNA, Ql NAAT (02/18/2025 8:49 AM EDT) Influenza A PCR NEGATIVE Negative [facility] Influenza B PCR NEGATIVE Negative [facility] Resp Syncy Virus RNA Qual PCR NEGATIVE Negative [facility] SARS COV2 PCR NEGATIVE Negative [facility] Comment:All test results mus t [...] use by authorized laboratories.Testing performed on the [employer] GeneXpert utilizingreal-time RT-PCR.All SARS CoV2 and positive influenza A/B results arereported to [facility]. 02/18/2025 8:49 AM EDT 02/18/2025 8:54 AM EDT us Generic External Data Provider LAB MICROBIOLOGY - GENERAL ORDERABLES Final Result Performing Organization Address [facility]/ZIP Co de Phone Number [facility] [address] [place] [phone] * (ABNORMAL) Sed Rate by Modified Maldonadoren (02/18/2025 8:49 AM EDT) Erythrocyte Sedimentation Rate 81(H) 0 - 20 MM/HR [facility] Comment:Patients with polycy themia and many hemoglobin abnormalitiesmay have depressed sed rates whereas patients with anemiamay have elevated sed rates. 02/18/2025 8:49 AM EDT 02/18/2025 8:54 AM EDT us Generic External Data Provider LAB BLOOD ORDERAB LES Final Result Performing Organization Address [facility]/ZIP Co de Phone Number [facility] [address] [place] [phone] * C-reactive Protein (02/18/2025 8:49 AM EDT) Pathologist [facility] C Reactive Protein 0.44 < or = 0.50 mg/dL [facility] 02/18/2025 8:49 AM EDT 02/18/2025 8:54 AM EDT Generic External Data Provider LAB BLOOD ORDERAB LES Final Result Performing Organization Address [facility] Co de Phone Number [facility] [address] [place] [phone] * B Type Natriuretic Peptide (BNP) (02/18/2025 8:49 AM EDT) Pathologist [facility] B Type Natriuretic Peptide 48 <100 pg/mL [facility] 02/18/2025 8:49 AM EDT 02/18/2025 8:54 AM EDT Generic External Data Provider LAB BLOOD ORDERAB LES Final Result Performing Organization Address [facility] Co de Phone Number [facility] [address] [place] [phone] * Magnesium (02/18/2025 8:49 AM EDT) Pathologist [facility] Magnesium 2.2 1.6 - 2.6 mg/dL [facility] 02/18/2025 8:49 AM EDT 02/18/2025 8:54 AM EDT us Generic External Data Provider LAB BLOOD ORDERAB LES Final Result [facility] [address] [place] [phone] * Basic Metabolic Panel (02/18/2025 8:49 AM EDT) Sodium 140 135 - 145 mmol/L [facility] Potassium 4.6 3.3 - 5.1 mmol/L [facility] Comment:Slight Hemolysis.Int erpret result with caution. Chloride 106 96 - 108 mmol/L [facility] Carbon Dioxide 25 22 - 29 mmol/L [facility] Anion Gap 14 12 - 20 [facility] Urea Nitrogen (BUN) 12 9 - 16 mg/dL [facility] Creatinine, Serum 0.62 0.5 - 1.4 mg/dL [facility] Creatinine Clr Calc Pharmacy 120.9 [facility] Comment:Provided height and weight: 167.64 cm,83.6 kg.eGFR (calculated from the MDRD study equation) and eCrCl(calculated from the Cockcroft-Gault equation) are based ondifferent parameters and may not yield comparable results.If eCrCl result is absurd, please check patient'sheight/weight. Estimated Glomerular Filt Rate >60 [facility] Comment:Chronic Kidney Disea se: Estimated GFR < 60 mL/min/1.23h2Bjptbq Kidney Disease: Estimated GFR < 15 mL/min/1.73m2 Glucose 101 60 - 115 mg/dL [facility] Calcium 9.6 8.4 - 10.2 mg/dL [facility] 02/18/2025 8:49 AM EDT 02/18/2025 8:54 AM EDT us Generic External Data Provider LAB BLOOD ORDERAB LES Final Result [facility] [address] [place] [phone] * XR Knee 3 Views Left (02/18/2025 8:14 AM EDT) Anatomical Region Laterality Modality Lower Extremities, Knee Left Radiogra phic Imaging 02/18/2025 8:14 AM EDT Narrative 02/18/2025 9:26 AM EDT [address] [address] XRay Report Signed Patient: Ginette Arceo MR #: [id number] : 1975 Acct:[id number] Age/Sex: 49 / F ADM Date: 02/18/25 Loc: .ED Attending Dr: Ordering Physician: Jana Mcdaniel Date of Service: 02/18/25 Procedure(s): XR knee LT 3V Accession Number(s): [id number] cc: Mackenzie Estrada; Jana Mcdaniel EXAMINATION: XR [...] signed by Jamie Avelar MD in OV> 02/18/2523 DD/ 0814 TD/TT: 02/18/25 0913 [employer] Lecturer: [facility] Procedure Note Donotuseinterpreter, Image - 02/18/[address] [address] XRay Report Signed Patient: Ginette ArceoMR #: [id number] : 1975Acct:[id number] Age/Sex: 49 / FADM Date: 02/18/25 Loc: HO.ED Attending Dr: Ordering Physician: Jana Mcdaniel Date of Service: 02/18/25 Procedure(s): XR knee LT 3V Accession Number(s): [id number] cc: Mackenzie Estrada; Jana Mcdaniel EXAMINATION: XR [...] in OV> 02/18/25922 DD/ 3 TD/TT: 02/18/25912 [employer] Lecturer: MAGGIE [facility] External Provider IMG XR PROCEDURES Final Result * XR Knee 3 Views Right (02/18/2025 8:11 AM EDT) Anatomical Region Laterality Modality Lower Extremities, Knee Right Radiogra phic Imaging 02/18/2025 8:11 AM EDT Narrative 02/18/2025 9:25 AM EDT [place] [address] XRay Report Signed Patient: Ginette Arceo MR #: [id number] : 1975 Acct:[id number] Age/Sex: 49 / F ADM Date: 02/18/25 Loc: HO.ED Attending Dr: Ordering Physician: Jana Mcdaniel Date of Service: 02/18/25 Procedure(s): XR knee RT 3V Accession Number(s): [id number] cc: Mackenzie Estrada; Jana Mcdaniel EXAMINATION: XR [...] in OV> 02/18/25921 DD/ 0 TD/TT: 02/18/25912 [employer] Lecturer: MAGGIE Procedure Note Donotuseinterpreter, Image - 02/18/2025 [place] [address] XRay Report Signed Patient: Ginette ArceoMR #: [id number] : 1975Acct:[id number] Age/Sex: 49 / FADM Date: 02/18/25 Loc: .ED Attending Dr: Ordering Physician: Jana Mcdaniel Date of Service: 02/18/25 Procedure(s): XR knee RT 3V Accession Number(s): [id number] cc: Mackenzie Estrada; Jana Mcdaniel EXAMINATION: XR [...] in OV> 02/18/25921 DD/ 0 TD/TT: 02/18/25912 [employer] Lecturer: [facility] us [facility] External Provider IMG XR PROCEDURES Final Result * XR Hand 3+ Views Right (02/18/2025 8:08 AM EDT) Anatomical Region Laterality Modality Upper Extremities, Hand Right Radiogra phic Imaging 02/18/2025 8:08 AM EDT Narrative 02/18/2025 9:30 AM EDT [address] [address] XRay Report Signed Patient: Ginette Arceo MR #: [id number] : 1975 Acct:[id number] Age/Sex: 49 / F ADM Date: 02/18/25 Loc: HO.ED Attending Dr: Ordering Physician: Jana Mcdaniel Date of Service: 02/18/25 Procedure(s): XR hand RT min 3V Accession Number(s): [id number] cc: Mackenzie Estrada; Jana Mcdaniel EXAMINATION: XR [...] OV> 02/18/25926 DD/ 0808 TD/TT: 02/18/25 0913 [employer] Lecturer: [facility] Procedure Note Donotuseinterpreter, Image - 02/18/[address] [address] XRay Report Signed Patient: Ginette ArceoMR #: [id number] : 1975Acct:[id number] Age/Sex: 49 / FADM Date: 02/18/25 Loc: HO.ED Attending Dr: Ordering Physician: Jana Mcdaniel Date of Service: 02/18/25 Procedure(s): XR hand RT min 3V Accession Number(s): [id number] cc: Mackenzie Estrada; Jana Mcdaniel EXAMINATION: XR [...] OV> 02/18/25926 DD/ 08 TD/TT: 02/18/25 09 [employer] Lecturer: MAGGIE [facility] External Provider IMG XR PROCEDURES Final Result * Culture, Urine, Routine (02/18/2025 12:00 AM EDT) Urine Urine specimen obtained by clean catch procedure / Unknown 02/18/2025 02/18/2025 Comment:CC Narrative [facility] - 02/19/2025 9:03 AM EDT Strep agalactiae (Grp B) Quant 50,000 to 100,000 cfu/mL Susc N/A Susceptibility not routinely performed on this isolate. Specimen Source: Urine clean catch Generic External Data Provider LAB MICROBIOLOGY - GENERAL ORDERABLES Final Result [facility] [address] [place] [phone] * Hepatitis C Ab (04/11/2024 10:26 AM EDT) Hepatitis C Antibody Nonreactive Nonreactive [facility] Comment:Antibodies to HCV no t detected; does not exclude early acuteHCV infection. Blood Venous blood specimen / Unknown 04/11/2024 10:26 AM EDT 04/11/2024 11:19 AM EDT us Mackenzie Estrada MD LAB BLOOD ORDERABLES Final Res ult [facility] [address] [place] [phone] * HIV-1/2 Antigen and Antibodies, Fourth Generation, with Reflexes (04/11/2024 10:26 AM EDT) [facility] HIV AB/AG Nonreactive Nonreactive [facility] Comment:HIV-1 p24 Ag and/or HIV-1/HIV-2 Ab not detected.A test result that is nonreactive does not exclude thepossibility of exposure to or infection with HIV-1 and/orHIV-2. Nonreactive results in this assay for individualswith prior exposure to HIV-1 and/or HIV-2 may be due toantigen and antibody levels that are below the limit ofdetection of this assay.The [id number] HIV Ag/Ab Combo assay result andsupplemental assay results should be interpreted inconjunction with the patient's clinical presentation,history and other laboratory results. If the results areinconsistent with clinical evidence, additional testing issuggested to confirm the result. Blood Venous blood specimen / Unknown 04/11/2024 10:26 AM EDT 04/11/2024 11:19 AM EDT us Mackenzie Estrada MD LAB BLOOD ORDERABLES Final Res ult [facility] [address] [place] [phone] * HPV mRNA E6/E7 w/Reflex to HPV Genotypes 16, 18/45 (09/29/2023 12:26 PM EST) HPV nRNA E6/E7 Not Detected Not Detected [facility] Comment:Methodology: Transcr iption-Mediated AmplificationThis assay detects E6/E7 viral messenger RNA (mRNA) from 14high-risk HPV types (16,18,31,33,35,39,45,51,52,56,58,59,66,68).Cervical sources are required for HPV testing.If a vaginal source from a patient who has had atotal hysterectomy with removal of cervix wassubmitted, please contact the testing laboratoryfor alternative testing options.For additional information, please refer [email or web address]/[email or web address](This link if provided for information/educational purposes only.)THIS TEST WAS PERFORMED AT:[facility] [place] [phone] GALVAN MD HPV mRNA E6/E7 TNP [facility] HPV 16 RNA [facility] HPV 18/45 RNA [facility] 09/29/2023 12:2 6 PM EST 09/30/2023 11:30 AM EST Mackenzie Estrada MD LAB CYTOLOGY ORDERABLES Final Result [facility] [address] [place] [phone] * Pap Smear (09/29/2023 12:26 PM EST) 09/29/2023 12:2 6 PM EST 09/30/2023 11:30 AM EST Narrative [facility] - 10/12/2023 4:18 PM EDT ----- ------- Name: Ginette Arceo Age/Sex: 48/F : 1975 [id number] [id number] Attend Dr: Mackenzie Estrada Re09/29/23 Status: [facility]ch[facility] ----- ------- SPEC : [id number] RECD: 09/30/23-1130 STATUS: JÚNIORHuan ANA NUM: [id number] BHAVIN: 09/29/23-[address] [facility] [address]: Mackenzie Estrada ENTERED: 09/30/23-1325 SP TYPE: Pap Smr OT DR: ORDERED: Pap Smear Interpretation Satisfactory for evaluation. Negative for intraepithelial lesion or malignancy. HPV mRNA E6/E7: NOT DETECTED This assay detects E6/E7 viral messenger RNA (mRNA) from 14 high-risk HPV types (16, 18, 31, 33, 35, 39, 45, 51, 52, 56, 58, 59, 66, 68) HPV testing performed by [facility], [place], [place]. See reference laboratory portion of the EMR for entire report. Clinical Information LMP: Heavy menstrual bleeding past two weeks Previous PAP test: Unknown date/findings Other history: Material Received ThinPrep-Cervical ----- ------- Signed (signature on file) BARB Hawley (ASCP) 10/12/23 1618 ----- ------- END OF REPORT us Mackenzie Estrada MD LAB CYTOLOGY ORDERABLES Final Result [facility] [address] [place] [phone] * Mammography Report 1 (10/09/2021 [...] 10/28/2017 Recommended 10 year [place] up [place] Historical Provider HEALTH MAINTENANCE Edited Result - Final from Last 3 Months or Most Recently Relevant to Health Maintenance Insurance [facility] C[facility] [employer] STAND ADULT Care Teams Job Developer For Deaf Adults Relationship Specialty Start Date End Date Mackenzie Estrada MD [address] [place] [address] PCP - General Family Medicine 07/10/20 Hemalatha Pretty Manufacturing Production ManagerDirector Talent 01/02/25
--- OUTSIDE RECORDS SUMMARY | 2025-05-16 15:09 | XMS_ITS | Encounter Summary ---
Author Organization [employer] Address [address] [place] [address] Care Team Providers Care Acetylene Torch Operator Name Role Phone Mackenzie Estrada MD Primary Care Provider [phone] Casper Magaña RN Unavailable [phone] Ruth Ann Price Unavailable Unavailable Ruth Ann Price Unavailable Ruth Ann Price Unavailable Encounter Details Date Type Department Care Team (Late st Contact Info) Description 04/10/2024 Orders Only [facility] MED[facility]INE [address] [place] [address] Mackenzie Estrada MD [address] [place] [address] Social History Tobacco Use Types Packs/Day Years [...] Description 06/07/2025 3:45 PM EST Office Visit [address] [address] Mackenzie Estrada MD [address] [place] [phone] 07/09/2025 9:45 AM EST Office Visit [address] [address] documented as of this encounter Goals Goal Patient Goal Type Associated Problems Recent Progress Patient-Stated? Author Quit using tobacco (cigarettes, smokeless, etc) Tobacco Use No Corey Lin, Bailey documented as of this encounter Visit Diagnoses Not on filedocumented in this encounter Care Teams Acetylene Torch Operator Relationship Specialty Start Date End Date Mackenzie Estrada MD [address] [place] [phone] PCP - General Family Medicine 07/10/20 Casper Magaña RN [address] [place] [phone] Registered Nurse Family Medicine 01/18/25 01/18/25 Ruth Ann Price 02/19/25 02/19/25 Ruth Ann Price 02/19/25 02/28/25 Ruth Ann Price 03/29/25 04/03/25 Hemalatha Pretty Central Office Trouble ShooterMachine Tool Technology Instructor 01/02/25 documented as of this encounter
--- OUTSIDE RECORDS SUMMARY | 2025-05-16 15:09 | XMS_ITS | Encounter Summary ---
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 [...] the past 12 months, has t he Voices, gas, oil or water [employer] threatened to shut off services in your [...] 3:45 PM EST Office Visit [facility] [address] [place] [phone] Mackenzie Estrada MD [address] [place] [phone] 07/09/2025 9:45 AM EST Office Visit [address] [address] documented as of this encounter Goals Goal [...] documented as of this encounter Care Teams Sales Incentive Analyst Relationship Specialty Start Date End Date Mackenzie Estrada MD [address] [facility] [place] [address] PCP - General Family Medicine 07/10/20 Hemalatha Pretty Rewrite EditorBlender Operator 01/02/25 documented as of this encounter
--- OUTSIDE RECORDS SUMMARY | 2025-05-16 15:09 | XMS_ITS | Encounter Summary ---
Author Organization [employer] Address [address] [facility] [address] 7t [place] [address] Care Team Providers Care Library Monitor Name Role Phone Mackenzie Estrada MD Primary Care Provider [phone] Casper Magaña RN Unavailable [phone] Ruth Ann Price Unavailable Unavailable Ruth Ann Price Unavailable Ruth Ann Price Unavailable Encounter Details Date Type Department Care Team (Late st Contact Info) Description 06/03/2023 Orders Only [facility] [address] [place] [address] Mackenzie Estrada MD [address] [place], [place] [phone] Pain in both hands Social History Tobacco [...] Description 06/07/2025 3:45 PM EST Office Visit [address] [address] Mackenzie Estrada MD [address] [place] [address] 07/09/2025 9:45 AM EST Office Visit [address] [address] documented as of this encounter Goals Goal [...] EST Narrative 06/03/2023 5:47 PM EDT [address] [address] XRay Report Signed Patient: Ginette Arceo MR #: [id number] : 1975 Acct:[id number] Age/Sex: 47 / F ADM Date: 06/25/23 Loc: HO.ED Attending Dr: Ordering Physician: Treasure Clemons Date of Service: 06/25/23 Procedure(s): XR chest 2V Accession Number(s): [id number] cc: Mackenzie Estrada; Treasure Clemons EXAMINATION: XR [...] in OV> 06/25/23 1230 DD/ 1215 TD/TT: Nurse Case Manager: [facility] Procedure Note Donotuseinterpreter, Image - 06/25/[address] [address] XRay Report Signed Patient: Ginette ArceoMR #: [id number] : 1975Acct:[id number] Age/Sex: 47 / FADM Date: 06/25/23 Loc: HO.ED Attending Dr: Ordering Physician: Treasure Clemons Date of Service: 06/25/23 Procedure(s): XR chest 2V Accession Number(s): [id number] cc: Mackenzie Estrada; Treasure Clemons EXAMINATION: XR [...] in OV> 06/25/23 1230 DD/ 1215 TD/TT: Nurse Case Manager: [facility] External Provider IMG XR PROCEDURES Edited Result - Final * (ABNORMAL) Urinalysis, Complete, with Reflex to Culture (06/03/2023 4:49 PM EDT) Color Urine Yellow [facility] Appearance Urine Clear [facility] PH 5.5 5.0 - 9.0 [facility] Glucose Urine UA Negative Negative mg/dL [facility] Urine Blood Large (3+)(A) Negative [facility] Specific [place] - Urine 1.025 1.005 - 1.025 [facility] Urine Protein Negative Neg-Trace mg/dL [facility] Urine Ketones Negative Negative mg/dL [facility] Nitrite Urine Negative Negative [facility] Leukocyte Esterase Urine Negative Negative [facility] RBC Urine >20(A) 0 - 2 /HPF [facility] Urine WBC 0-5 0 - 5 /HPF [facility] Urine Squamous Epithelial Cell 11-20 0 - 2 /HPF [facility] Urine Bacteria 1+ None Seen [facility] Hyaline Casts, Urine 0-2 0 - 2 /LPF [facility] 06/03/2023 4:49 PM EDT 06/03/2023 4:52 PM EDT [facility] - 06/03/2023 5:00 PM EDT Urine, Clean Catch us Generic External Data Provider LAB URINE ORDERAB LES Final Result Performing Organization Address [facility] de Phone Number [facility] [address] [place] [phone] * (ABNORMAL) Urinalysis w/reflex microscopic (06/03/2023 4:49 PM EDT) Color Urine Yellow [facility] Appearance Urine Clear [facility] PH 5.5 5.0 - 9.0 [facility] Glucose Urine UA Negative Negative mg/dL [facility] Urine Blood Large (3+)(A) Negative [facility] Specific [place] - Urine 1.025 1.005 - 1.025 [facility] Urine Protein Negative Neg-Trace mg/dL [facility] Urine Ketones Negative Negative mg/dL [facility] Nitrite Urine Negative Negative [facility] Leukocyte Esterase Urine Negative Negative [facility] 06/03/2023 4:49 PM EDT 06/03/2023 4:52 PM EDT [facility] - 06/03/2023 4:57 PM EDT Urine, Clean Catch Generic External Data Provider LAB URINE ORDERAB LES Final Result Performing Organization Address [facility] de Phone Number [facility] [address] [place] [phone] * Influenza A B2 ID NOW (Corona) (06/03/2023 4:34 PM EDT) IDNOW SERIAL# [id number] [facility] Influenza A Negative Negative [facility] Influenza B2 Negative Negative [facility] Influenza A B2 Note See Note [facility] Comment:The Corona ID NOW In fluenza [...] LAB MICROBIOLOGY - GENERAL ORDERABLES Final Result [facility] [address] [place] [phone] * COVID-19 ID NOW ([place]on[place]) (06/03/2023 4:34 PM EDT) IDNOW SERIAL# [id number] [facility] COVID-19 TEST Negative Negative [facility] COVID-19 NOTE See Note [facility] Comment: Results are for the identification of SARS-CoV2 RNA. TheSARS-CoV2 RNA is generally detectable in respiratory samplesduring the acute phase of infection. Positive results areindicative of the presence of SARS-CoV-2 RNA; clinicalcorrelation with patient history and other diagnosticinformation is necessary to determine patient infectionstatus. Positive results do not rule out bacterial infectionor co- infection with other viruses.Testing facilities within the [facility] and [facility] are required to report all positive [...] use by authorized laboratories.Testing performed on the [place] ID NOW utilizing NAAT. 06/03/2023 4:34 PM EDT 06/03/2023 4:40 PM EDT us Generic External Data Provider LAB MOLECULAR ARNAV GNOSTICS ORDERABLES Final Result [facility] [address] [place] [phone] [phone] documented in this encounter Visit Diagnoses Diagnosis Pain in both hands documented in this encounter Care Teams Library Monitor Relationship Specialty Start Date End Date Mackenzie Estrada MD [address] [place] [address] PCP - General Family Medicine 07/10/20 Casper Magaña, RN [address] [place] [address] Registered Nurse Family Medicine 01/18/25 01/18/25 Ruth Ann Price 02/19/25 02/19/25 Ruth Ann Price 02/19/25 02/28/25 Ruth Ann Price 03/29/25 04/03/25 Hemalatha Pretty Is ManagerPolice Specialist 01/02/25 documented as of this encounter
--- OUTSIDE RECORDS SUMMARY | 2025-05-16 15:09 | XMS_ITS | Encounter Summary ---
Author Organization [employer] Address [address] [facility] 7t [place] [address] Care Team Providers Care Mental Health Director Name Role Phone Mackenzie Estrada MD Primary Care Provider [phone] Casper Magaña RN Unavailable [phone] Ruth Ann Price Unavailable Unavailable Ruth Ann Price Unavailable Ruth Ann Price Unavailable Encounter Details Date Type Department Care Team (Late Contact Info) Description 03/04/2023 Orders Only [facility] [address] [place] [address] [phone] Kat Yo MD [address] [place] [address] [phone] Social History Tobacco Use Types Packs/Day Years [...] 3:45 PM EST Office Visit [facility] [address] [place] [address] [phone] Mackenzie Estrada MD [address] [place] [address] [phone] 07/09/2025 9:45 AM EST Office Visit [facility] [address] [place] [address] documented as of this encounter Visit Diagnoses Not on filedocumented in this encounter Care Teams Mental Health Director Relationship Specialty Start Date End Date Mackenzie Estrada MD [address] [place] [address] PCP - General Family Medicine 07/10/20 Casper Magaña, RN [address] [place] [address] Registered Nurse Family Medicine 01/18/25 01/18/25 Ruth Ann Price 02/19/25 02/19/25 Ruth Ann Price 02/19/25 02/28/25 Ruth Ann Price 03/29/25 04/03/25 Hemalatha Pretty Slat Basket Top MakerBlending Supervisor 01/02/25 documented as of this encounter
--- OUTSIDE RECORDS SUMMARY | 2025-05-16 15:09 | XMS_ITS | Encounter Summary ---
Author Organization [employer] Address [address] [facility] 7t [place] [address] Care Team Providers Care Reduction Furnace Operator Name Role Phone Mackenzie Estrada MD Primary Care Provider [phone] Casper Magaña RN Unavailable [phone] Ruth Ann Price Unavailable Unavailable Ruth Ann Price Unavailable Ruth Ann Price Unavailable Reason for Visit * Reason Comments Med Refill Encounter Details Date Type Department Care Team (Late st Contact Info) Description 02/08/2023 Refill [facility] 230 [place] [address] Mackenzie Estrada MD 230 [place] [address] Pain in both hands Social History Tobacco [...] Description 06/07/2025 3:45 PM EST Office Visit [address] [address] Mackenzie Estrada MD [address] [place] [address] 07/09/2025 9:45 AM EST Office Visit [address] [address] documented as of this encounter Visit Diagnoses Diagnosis Pain in both hands documented in this encounter Care Teams Reduction Furnace Operator Relationship Specialty Start Date End Date Mackenzie Estrada MD [address] [place] [address] PCP - General Family Medicine 07/10/20 Casper Magaña RN [address] [place] [address] Registered Nurse Family Medicine 01/18/25 01/18/25 Ruth Ann Price 02/19/25 02/19/25 Ruth Ann Price 02/19/25 02/28/25 Ruth Ann Price 03/29/25 04/03/25 Hemalatha Pretty Glass Blower HelperMechanic'S Assistant 01/02/25 documented as of this encounter
--- OUTSIDE RECORDS SUMMARY | 2025-05-16 15:09 | XMS_ITS | Encounter Summary ---
Author Organization [employer] Address [address] [facility] 7t [place] [address] Care Team Providers Care Rigging Loft Repairer Name Role Phone Mackenzie Estrada MD Primary Care Provider [phone] Casper Magaña RN Unavailable [phone] Ruth Ann Price Unavailable Unavailable Ruth Ann Price Unavailable Ruth Ann Price Unavailable Reason for Visit * Reason Comments Med Refill Encounter Details Date Type Department Care Team (Late st Contact Info) Description 06/01/2023 Refill [facility] 230 [place] [address] Mackenzie Estrada MD 230 [place], [place] [phone] Pain in both hands Social History Tobacco [...] Description 06/07/2025 3:45 PM EST Office Visit [address] [address] Mackenzie Estrada MD [address] [place] [address] 07/09/2025 9:45 AM EST Office Visit [address] [address] documented as of this encounter Goals Goal Patient Goal Type Associated Problems Recent Progress Patient-Stated? Author Quit using tobacco (cigarettes, smokeless, etc) Tobacco Use No Corey Lin, Bailey documented as of this encounter Visit Diagnoses Diagnosis Pain in both hands documented in this encounter Care Teams Rigging Loft Repairer Relationship Specialty Start Date End Date Mackenzie Estrada MD [address] [place] [address] PCP - General Family Medicine 07/10/20 Casper Magaña, JENNIFER [address] [place] [address] Registered Nurse Family Medicine 01/18/25 01/18/25 Ruth Ann Price 02/19/25 02/19/25 Ruth Ann Price 02/19/25 02/28/25 Ruth Ann Price 03/29/25 04/03/25 Hemalatha Pretty Raw Products DirectorVertical Borer 01/02/25 documented as of this encounter
--- OUTSIDE RECORDS SUMMARY | 2025-05-16 15:09 | XMS_ITS | Encounter Summary ---
Author Organization [employer] Address [address] 7t [place] [address] Care Team Providers Care Assistant Grocery Name Role Phone Mackenzie Estrada MD Primary Care Provider [phone] Encounter Details Date Type Department Care Team ([facility] Contact Info) Description 05/16/2025 Orders Only GENERIC EXTERNAL DATA DEPARTMENT [...] 06/07/2025 3:45 PM EST Office Visit [address] [address] Mackenzie Estrada MD [address] [place] [address] 07/09/2025 9:45 AM EST Office Visit [address] [address] documented as of this encounter Goals Goal Patient Goal Type Associated Problems Recent Progress Patient-Stated? Author Quit using tobacco (cigarettes, smokeless, etc) Tobacco Use Corey Cornell, KelechiD documented as of this encounter Procedures Procedure Name Priority Date/Time Associated Diagnosis Comments LIPID PANEL, STANDARD Routine 05/16/2025 12:03 PM EDT documented in this encounter Results * (ABNORMAL) Lipid Panel, Standard (05/16/2025 12:03 PM EDT) Triglycerides 154(H) <150 mg/dL [facility] Comment:Desirable Triglyceri de: less than 150 mg/dLBorderline High Triglyceride 150-199 mg/dLHigh Triglyceride: 200-499 mg/dLVery High Triglyceride: greater than or equal to 5OO mg/dL Cholesterol 261(H) <200 mg/dL [facility] Comment:Desirable Cholestero l: less than 200 mg/dLBorderline High Cholesterol: 200-239 mg/dLHigh Cholesterol: greater than 239 mg/dL LDL Cholesterol Calculated 179(H) <100 mg/dL [facility] Comment:Desirable LDL: less than 100 mg/dLNear Optimal/Above Optimal LDL: 110- 129 mg/dLBorderline High LDL: 130-159 mg/dLHigh LDL: 160-189 mg/dLVery High LDL: greater than or equal to 190 mg/dL HDL Cholesterol 52 >40 mg/dL [facility] Comment:Desirable HDL: great er than 40 mg/dL Note: This HDL assay may give artificially low results in patients with liver disease. 05/16/2025 12:0 3 PM EDT 05/16/2025 1:31 PM EDT us Generic External Data Provider LAB BLOOD ORDERAB LES Final Result Performing Organization Address City/State/[place] Co de Phone Number [facility] [address] [place] [phone] documented in this encounter Visit Diagnoses Not on filedocumented in this encounter Additional Health Concerns Assessment Noted Time PHQ-9 Depression Total Score: 6 04/03/20 25 11:40 AM EDT documented as of this encounter Care Teams Assistant Grocery Relationship Specialty Start Date End Date Mackenzie Estrada MD [address] [place] [phone] PCP - General Family Medicine 07/10/20 Hemalatha Pretty Retail Greeting Card MerchandiserMachine Pan Greaser 01/02/25 documented as of this encounter
--- OUTSIDE RECORDS SUMMARY | 2025-05-16 15:09 | XMS_ITS | Encounter Summary ---
Author Organization [employer] Address [address] [facility] 7t [place] [address] Care Team Providers Care Animal Care Provider Name Role Phone Mackenzie Estrada MD Primary Care Provider [phone] Encounter Details Date Type Department Care Team (Latest Contact Info) Description 04/05/2025 Results Follow-Up [facility] [address] [place], [place] [phone] Sisi Kennedy FNP 505 [place] [address] CBC auto differential Social History Tobacco Use [...] Tc to pt via S ID: [id number] to let them know per PCP Please [...] Description 06/07/2025 3:45 PM EST Office Visit [address] [address] Mackenzie Estrada MD [address] [place] [address] 07/09/2025 9:45 AM EST Office Visit [address] [address] documented as of this encounter Goals Goal Patient Goal Type Associated Problems Recent Progress Patient-Stated? Author Quit using tobacco (cigarettes, smokeless, etc) Tobacco Use Corey Cornell, KelechiD documented as of this encounter Visit Diagnoses Not on filedocumented in this encounter Additional Health Concerns Assessment Noted Time PHQ-9 Depression Total Score: 6 04/03/20 11:40 AM EDT documented as of this encounter Care Teams Animal Care Provider Relationship Specialty Start Date End Date Mackenzie Estrada MD [address] [place] [address] PCP - General Family Medicine 07/10/20 Hemalatha Pretty Assembler Leather GoodsCity Plant Supervisor 01/02/25 documented as of this encounter
--- OUTSIDE RECORDS SUMMARY | 2025-05-16 15:10 | XMS_ITS | Encounter Summary ---
Author Organization [facility] Address [address] [facility] 7t [place] [address] Care Team Providers Care Switchboard Installer Name Role Phone Mackenzie Estrada MD Primary Care Provider [phone] Casper Magaña RN Unavailable [phone] Ruth Ann Price Unavailable Unavailable Ruth Ann Price Unavailable Ruth Ann Price Unavailable Reason for Visit * Reason Comments Med Refill Encounter Details Date Type Department Care Team ([facility] Contact Info) Description 08/25/2022 Refill [facility] [address] [place] [address] Mackenzie Estrada MD 230 [place] [address] Pain in both hands Social History Tobacco [...] Upcoming Encounters Date Type Department Care Team ([facility] Contact Info) Description 06/07/2025 3:45 PM EST Office Visit [address] [address] Mackenzie Estrada MD [address] [place] [address] 07/09/2025 9:45 AM EST Office Visit [address] [address] documented as of this encounter Visit Diagnoses Diagnosis Pain in both hands documented in this encounter Care Teams Switchboard Installer Relationship Specialty Start Date End Date Mackenzie Estrada MD [address] [place] [address] PCP - General Family Medicine 07/10/20 Casper Magaña, RN [address] [place] [address] Registered Nurse Family Medicine 01/18/25 01/18/25 Ruth Ann Price 02/19/25 02/19/25 Ruth Ann Price 02/19/25 02/28/25 Ruth Ann Price 03/29/25 04/03/25 Hemalatha Pretty Dough SheeterUnderwriting Director 01/02/25 documented as of this encounter
--- OUTSIDE RECORDS SUMMARY | 2025-05-16 15:10 | XMS_ITS | Encounter Summary ---
Author Organization [employer] Address [address] [facility] 7t [place] [address] Care Team Providers Care Renal Dietitian Name Role Phone Mackenzie Estrada MD Primary Care Provider [phone] Casper Magaña RN Unavailable [phone] Ruth Ann Price Unavailable Unavailable Ruth Ann Price Unavailable Ruth Ann Price Unavailable Reason for Visit * Reason Comments Med Refill Encounter Details Date Type Department Care Team (Late st Contact Info) Description 07/21/2023 Refill [facility] 230 [place] [address] Name, MD Mark 230 [place] [address] Pain in both hands Social History Tobacco [...] Description 06/07/2025 3:45 PM EST Office Visit [address] [address] Mackenzie Estrada MD [address] [place] [address] 07/09/2025 9:45 AM EST Office Visit [address] [address] documented as of this encounter Goals Goal Patient Goal Type Associated Problems Recent Progress Patient-Stated? Author Quit using tobacco (cigarettes, smokeless, etc) Tobacco Use No Corey Lin, Bailey documented as of this encounter Visit Diagnoses Diagnosis Pain in both hands documented in this encounter Care Teams Renal Dietitian Relationship Specialty Start Date End Date Mackenzie Estrada MD [address] [place] [address] PCP - General Family Medicine 07/10/20 Casper Magaña, JENNIFER 505 [place] [address] Registered Nurse Family Medicine 01/18/25 01/18/25 Ruth Ann Price 02/19/25 02/19/25 Ruth Ann Price 02/19/25 02/28/25 Ruth Ann Priec 03/29/25 04/03/25 Hemalatha Pretty Rag SorterReservoir Engineer 01/02/25 documented as of this encounter
--- OUTSIDE RECORDS SUMMARY | 2025-05-16 15:10 | XMS_ITS | Encounter Summary ---
Author Organization [employer] Address [address] [facility] 7t [place] [address] Care Team Providers Care Servicer Coin Machines Name Role Phone Mackenzie Estrada MD Primary Care Provider Casper Magaña RN Unavailable [phone] Ruth Ann Price Unavailable Unavailable Ruth Ann Price Unavailable Ruth Ann Price Unavailable Reason for Visit * Reason Comments Med Refill Encounter Details Date Type Department Care Team (Late st Contact Info) Description 08/26/2023 Refill [facility] 230 [place] [address] Sisi Kennedy, FARHEEN 505 [place] [address] Viral upper respiratory tract infection Social History [...] 06/07/2025 3:45 PM EST Office Visit [address] [address] Mackenzie Estrada MD [address] [place] [address] 07/09/2025 9:45 AM EST Office Visit [address] [address] documented as of this encounter Goals Goal Patient Goal Type Associated Problems Recent Progress Patient-Stated? Author Quit using tobacco (cigarettes, smokeless, etc) Tobacco Use No Corey Lin, Bailey documented as of this encounter Visit Diagnoses Diagnosis Viral upper respiratory tract infection Acute upper respiratory infections of unspecified site documented in this encounter Care Teams Servicer Coin Machines Relationship Specialty Start Date End Date Mackenzie Estrada MD [address] [place] [address] PCP - General Family Medicine 07/10/20 Casper Magaña RN [address] [place] [address] Registered Nurse Family Medicine 01/18/25 01/18/25 Ruth Ann Price 02/19/25 02/19/25 Ruth Ann Price 02/19/25 02/28/25 Ruth Ann Price 03/29/25 04/03/25 Hemalatha Pretty Test Lab TechnicianGraining Press Operator 01/02/25 documented as of this encounter
--- OUTSIDE RECORDS SUMMARY | 2025-05-16 15:10 | XMS_ITS | Encounter Summary ---
Author Organization [employer] Address [address] [facility] 7t [place] [address] Care Team Providers Care Primary Special Education Teacher Name Role Phone Mackenzie Estrada MD Primary Care Provider [phone] Casper Magaña RN Unavailable [phone] Ruth Ann Price Unavailable Unavailable Ruth Ann Price Unavailable Ruth Ann Price Unavailable Reason for Visit * Reason Comments Med Refill Encounter Details Date Type Department Care Team (Late st Contact Info) Description 07/28/2022 Refill [facility] 230 [place] [address] Mackenzie Estrada MD 230 [place] [address] Pain in both hands Social History Tobacco [...] 06/07/2025 3:45 PM EST Office Visit [address] [address] Mackenzie Estrada MD [address] [place] [address] 07/09/2025 9:45 AM EST Office Visit [address] [address] documented as of this encounter Visit Diagnoses Diagnosis Pain in both hands documented in this encounter Care Teams Primary Special Education Teacher Relationship Specialty Start Date End Date Mackenzie Estrada MD [address] [place] [address] PCP - General Family Medicine 07/10/20 Casper Magaña, JENNIFER [address] [place] [address] Registered Nurse Family Medicine 01/18/25 01/18/25 Ruth Ann Price 02/19/25 02/19/25 Ruth Ann Price 02/19/25 02/28/25 Ruth Ann Price 03/29/25 04/03/25 Hemalatha Pretty Pharmacy TechSiding Mechanic 01/02/25 documented as of this encounter
--- OUTSIDE RECORDS SUMMARY | 2025-05-16 15:10 | XMS_ITS | Encounter Summary ---
Author Organization [employer] Address [address] 7t [place] [address] Care Team Providers Care Trial Attorney Name Role Phone Mackenzie Estrada MD Primary Care Provider [phone] Casper Magaña RN Unavailable [phone] Ruth Ann Price Unavailable Unavailable Ruth Ann Price Unavailable Ruth Ann Price Unavailable Reason for Visit * Reason Onset Date Comments Hospital Follow-up 02/24/2024 Encounter Details Date Type Department Care Team ([facility] st Contact Info) Description 02/24/2024 Telephone [facility] MEDICINE [address] [place], [place] [phone] Mackenzie Estrada MD [address] [place], [place] [phone] Hospital Follow-up Social History Tobacco Use Types [...] t he electric, gas, oil or water shopandsave threatened to shut off services in your [...] encounter Miscellaneous Notes * Telephone Encounter - iRgo Martinez - 02/24/2024 9:05 AM EDT Tc from pt requesting a HDF appt. Hospital: [facility] Date of admission: 02/19 Discharge date: 02/23 Diagnosed: Rectal Bleeding Cameroonian Speaker documented in this encounter Plan of Treatment Upcoming Encounters Date Type Department Care Team (Late st Contact Info) Description 06/07/2025 3:45 PM EST Office Visit [facility] MEDICINE [address] [place] [address] Mackenzie Estrada MD [address] [place] [address] 07/09/2025 9:45 AM EST Office Visit [facility] MEDICINE [address] [place] [address] documented as of this encounter Goals Goal Patient Goal Type Associated Problems Recent Progress Patient-Stated? Author Quit using tobacco (cigarettes, smokeless, etc) Tobacco Use No Corey Lin, PharmD documented as of this encounter Visit Diagnoses Not on filedocumented in this encounter Care Teams Trial Attorney Relationship Specialty Start Date End Date Mackenzie Estrada MD [address] [place] [address] PCP - General Family Medicine 07/10/20 Casper Magaña, JENNIFER [address] [place] [address] Registered Nurse Family Medicine 01/18/25 01/18/25 Ruth Ann Price 02/19/25 02/19/25 Ruth Ann Price 02/19/25 02/28/25 Ruth Ann Price 03/29/25 04/03/25 Hemalatha Pretty Steel GrinderEngine Boss 01/02/25 documented as of this encounter
--- OUTSIDE RECORDS SUMMARY | 2025-05-16 15:10 | XMS_ITS | Encounter Summary ---
Author Organization [employer] Address [address] [facility] [address] 7t [place] [address] Care Team Providers Care Sales Route Driver Name Role Phone Mackenzie Estrada MD Primary Care Provider [phone] Casper Magaña RN Unavailable [phone] Ruth Ann Price Unavailable Unavailable Ruth Ann Price Unavailable Ruth Ann Price Unavailable Reason for Visit * Reason Onset Date Comments Appointment Request 08/16/2023 Encounter Details Date Type Department Care Team ([facility] st Contact Info) Description 08/16/2023 Telephone [facility] MEDICINE [address] [place], [place] [phone] Mackenzie Estrada MD [address] [place], [place] [phone] Appointment Request Social History Tobacco Use Types [...] be seen today. Please contact pt @ [phone] Yakut Speaker documented in this encounter Plan of Treatment Upcoming Encounters Date Type Department Care Team (Late st Contact Info) Description 06/07/2025 3:45 PM EST Office Visit [facility] MEDICINE [address] [place] [address] Mackenzie Estrada MD [address] [place] [address] 07/09/2025 9:45 AM EST Office Visit [facility] MEDICINE [address] [place] [address] documented as of this encounter Goals Goal Patient Goal Type Associated Problems Recent Progress Patient-Stated? Author Quit using tobacco (cigarettes, smokeless, etc) Tobacco Use Corey Cornell, Bailey documented as of this encounter Visit Diagnoses Not on filedocumented in this encounter Care Teams Sales Route Driver Relationship Specialty Start Date End Date Mackenzie Estrada MD [address] [place] [address] PCP - General Family Medicine 07/10/20 Casper Magaña, JENNIFER [address] [place] [address] Registered Nurse Family Medicine 01/18/25 01/18/25 Ruth Ann Price 02/19/25 02/19/25 Ruht Ann Price 02/19/25 02/28/25 Ruth Ann Price 03/29/25 04/03/25 Hemalatha Pretty Water Pollution Control TechnicianLeaded Glass Installer 01/02/25 documented as of this encounter
--- OUTSIDE RECORDS SUMMARY | 2025-05-16 15:10 | XMS_ITS | Encounter Summary ---
Author Organization [employer] Address [address] [facility] 7t [place] [address] Care Team Providers Care Printed Circuit Boards Inspector Name Role Phone Mackenzie Estrada MD Primary Care Provider [phone] Casper Magaña RN Unavailable [phone] Ruth Ann Price Unavailable Unavailable Ruth Ann Price Unavailable Ruth Ann Price Unavailable Encounter Details Date Type Department Care Team (Late Contact Info) Description 03/29/2023 Abstract [facility]INE [address] [place] [address] Cecilia Henriquez Social History Tobacco Use Types [...] Department Care Team (Late Contact Info) Description 06/07/2025 3:45 PM EST Office Visit [facility] [address] [place], [place] [phone] Mackenzie Estrada MD 230 [place], [place] [phone] 07/09/2025 9:45 AM EST Office Visit [facility] [address] [place] [address] documented as of this encounter Procedures Procedure Name Priority Date/Time Associated Diagnosis Comments COLONOSCOPY Routine 10/28/2017 documented in this encounter Results * Colonoscopy (10/28/2017) Colonoscopy Normal Normal Narrative Cecilia Henriquez - 10/28/2017 [place]commended 10 [place] [place] Historical Provider [facility] Edited Result - Final documented in this encounter Visit Diagnoses Not on filedocumented in this encounter Care Teams Printed Circuit Boards Inspector Relationship Specialty Start Date End Date Mackenzie Estrada MD [address] [place] [address] PCP - General Family Medicine 07/10/20 Casper Magaña, RN [address] [place] [address] Registered Nurse Family Medicine 01/18/25 01/18/25 Ruth Ann Price 02/19/25 02/19/25 Ruth Ann Price 02/19/25 02/28/25 Ruth Ann Price 03/29/25 04/03/25 Hemalatha Pretty Plumbing InstallerDirector Of Product Development 01/02/25 documented as of this encounter
--- OUTSIDE RECORDS SUMMARY | 2025-05-16 15:10 | XMS_ITS | Encounter Summary ---
Author Organization [employer] Address [address] [facility] 7t [place] [address] Care Team Providers Care Plodding Operator Name Role Phone Mackenzie Estrada MD Primary Care Provider [phone] Casper Magaña RN Unavailable [phone] Ruth Ann Price Unavailable Unavailable Ruth Ann Price Unavailable Ruth Ann Price Unavailable Reason for Visit * Reason Comments Med Refill Encounter Details Date Type Department Care Team (Late st Contact Info) Description 07/20/2024 Refill [facility] MEDICINE 230 [place] [address] Mackenzie Estrada MD [address] [place] [address] 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 ([facility]) Social History [...] Description 06/07/2025 3:45 PM EST Office Visit [facility] MEDICINE [address] [place] [address] Mackenzie Estrada MD [address] [place] [address] 07/09/2025 9:45 AM EST Office Visit [facility] MEDICINE [address] [place] [address] documented as of this encounter Goals Goal [...] documented as of this encounter Care Teams Plodding Operator Relationship Specialty Start Date End Date Mackenzie Estrada MD [address] [place] [address] PCP - General Family Medicine 07/10/20 Casper Magaña, JENNIFER [address] [place] [address] Registered Nurse Family Medicine 01/18/25 01/18/25 Ruth Ann Price 02/19/25 02/19/25 Ruth Ann Price 02/19/25 02/28/25 Ruth Ann Price 03/29/25 04/03/25 Hemalatha Pretty Cover SeamerSilk Screen Painter 01/02/25 documented as of this encounter
--- OUTSIDE RECORDS SUMMARY | 2025-05-16 15:10 | XMS_ITS | Clinical Summary ---
Author Organization [facility] Address [address] [place] [address] Support Name Relationship Address Phone Brayden Hernandez Emergency Contact [address] [place] [address] Care Team Providers Care Swimming Coach Or Instructor Name Role Phone Abdullahi Lizarraga MD Primary Care Provider [phone] Allergies Active Allergy Reactions Criticality Noted Date [...] age to complete this topic Care Teams Swimming Coach Or Instructor Relationship Specialty Start Date End Date Abdullahi Lizarraga MD [address] [place] [address] PCP - General Nephrology 03/10/18
--- OUTSIDE RECORDS SUMMARY | 2025-05-16 15:10 | XMS_ITS | Encounter Summary ---
Author Organization [employer] Address [address] [facility] [address] 7t [place] [address] Care Team Providers Care Residential Builder Name Role Phone Mackenzie Estrada MD Primary Care Provider [phone] Casper Magaña RN Unavailable [phone] Ruth Ann Price Unavailable Unavailable Ruth Ann Price Unavailable Ruth Ann Price Unavailable Encounter Details Date Type Department Care Team (Late st Contact Info) Description 05/10/2024 Orders Only [facility] MEDICINE 230 [place] [address] Mackenzie Estrada MD [address] [place] [address] Social History Tobacco Use Types Packs/Day Years [...] Description 06/07/2025 3:45 PM EST Office Visit [address] [address] Mackenzie Estrada MD [address] [place] [address] 07/09/2025 9:45 AM EST Office Visit [address] [address] documented as of this encounter Goals Goal Patient Goal Type Associated Problems Recent Progress Patient-Stated? Author Quit using tobacco (cigarettes, smokeless, etc) Tobacco Use Corey Cornell, KelechiD documented as of this encounter Visit Diagnoses Not on filedocumented in this encounter Additional Health Concerns Assessment Noted Time PHQ-9 Depression Total Score: 2 04/30/20 24 10:41 AM EDT documented as of this encounter Care Teams Residential Builder Relationship Specialty Start Date End Date Mackenzie Estrada MD [address] [place] [address] PCP - General Family Medicine 07/10/20 Casper Magaña, RN [address] [place] [address] Registered Nurse Family Medicine 01/18/25 01/18/25 Ruth Ann Price 02/19/25 02/19/25 Ruth Ann Price 02/19/25 02/28/25 Ruth Ann Price 03/29/25 04/03/25 Hemalatha Pretty Financial Institution Branch ManagerRotary Dump Operator 01/02/25 documented as of this encounter
--- OUTSIDE RECORDS SUMMARY | 2025-05-16 15:10 | XMS_ITS | Encounter Summary ---
Author Organization [employer] Address [address] [facility] 7t [place] [address] Care Team Providers Care Power Barker Operator Name Role Phone Mackenzie Estrada MD Primary Care Provider [phone] Casper Magaña RN Unavailable Ruth Ann Price Unavailable Unavailable Ruth Ann Price Unavailable Ruth Ann Price Unavailable Reason for Visit * Reason Comments Med Refill Encounter Details Date Type Department Care Team (Late st Contact Info) Description 07/26/2023 Refill [facility] MEDICINE [address] [place] [address] Name, MD Mark [address] [place] [address] Pain in both hands Social History Tobacco [...] Description 06/07/2025 3:45 PM EST Office Visit [address] [address] Mackenzie Estrada MD [address] [place] [address] 07/09/2025 9:45 AM EST Office Visit [address] [address] documented as of this encounter Goals Goal Patient Goal Type Associated Problems Recent Progress Patient-Stated? Author Quit using tobacco (cigarettes, smokeless, etc) Tobacco Use No Corey Lin, Bailey documented as of this encounter Visit Diagnoses Diagnosis Pain in both hands documented in this encounter Care Teams Power Barker Operator Relationship Specialty Start Date End Date Mackenzie Estrada MD [address] [place] [address] PCP - General Family Medicine 07/10/20 Casper Magaña, JENNIFER [address] [place] [address] Registered Nurse Family Medicine 01/18/25 01/18/25 Ruth Ann Price 02/19/25 02/19/25 Ruth Ann Price 02/19/25 02/28/25 Ruth Ann Price 03/29/25 04/03/25 Hemalatha Pretty Job Order Clerk4Th Grade Teacher 01/02/25 documented as of this encounter
--- OUTSIDE RECORDS SUMMARY | 2025-05-16 15:10 | XMS_ITS | Encounter Summary ---
Author Organization [employer] Address [address] [facility] 7t [place] [address] Care Team Providers Care Wrister Name Role Phone Mackenzie Estrada MD Primary Care Provider [phone] Casper Magaña RN Unavailable [phone] Ruth Ann Price Unavailable Unavailable Ruth Ann Price Unavailable Ruth Ann Price Unavailable Reason for Visit * Reason Onset Date Comments Triage 11/10/2022 Encounter Details Date Type Department Care Team ([facility] st Contact Info) Description 11/10/2022 Telephone [facility] MEDICINE [address] [place] [address] Mackenzie Estrada MD [address] [place] [address] Triage Social History Tobacco Use Types Packs/Day [...] - 11/11/2022 11:10 AM EDT TC to [phone] via [employer] in regards to below message. Pt reports she went to [facility] since [facility] did not return her call. RN informed pt triage nurses attempted to call pt x2 however pt did not answer. RN reviewed [facility] ED note and pt [...] however she has not been able to oyster picker the nystatin medication because [facility] [...] if it was received and ready for oyster picker. Pt verbalized understanding. RN advised pt [...] EDT Triage call returned to patient with DEQ dietary service aide [phone] to listed number x 2 no answer. Left message to return call to [phone]. Team Nurses tasked to follow with patient [...] Description 06/07/2025 3:45 PM EST Office Visit [address] [address] Mackenzie Estrada MD [address] [place] [address] 07/09/2025 9:45 AM EST Office Visit [address] [address] documented as of this encounter Visit Diagnoses Not on filedocumented in this encounter Care Teams Wrister Relationship Specialty Start Date End Date Mackenzie Estrada MD [address] [place] [address] PCP - General Family Medicine 07/10/20 Casper Magaña, RN [address] [place] [address] Registered Nurse Family Medicine 01/18/25 01/18/25 Ruth Ann Price 02/19/25 02/19/25 Ruth Ann Price 02/19/25 02/28/25 Ruth Ann Price 03/29/25 04/03/25 Hemalatha Pretty Twisting OperatorTooth Cutter Clutch 01/02/25 documented as of this encounter
--- OUTSIDE RECORDS SUMMARY | 2025-05-16 15:10 | XMS_ITS | Encounter Summary ---
Author Organization [employer] Address [address] [facility] 7t [place] [address] Care Team Providers Care System Administration Manager Name Role Phone Mackenzie Estrada MD Primary Care Provider [phone] Casper Magaña RN Unavailable [phone] Ruth Ann Price Unavailable Unavailable Ruth Ann Price Unavailable Ruth Ann Price Unavailable Reason for Visit * Reason Comments Med Refill Encounter Details Date Type Department Care Team (Late st Contact Info) Description 01/12/2024 Refill [facility] MEDICINE 230 [place] [address] Mackenzie Estrada MD 230 [place] [address] Rheumatoid arthritis involving multiple sites with positive rheumatoid factor ([facility]) Social History Tobacco Use Types Packs/Day Years [...] Office Visit [facility] MEDICINE [address] [place] [address] Mackenzie Estrada MD [address] [place] [address] 07/09/2025 9:45 AM EST Office Visit [address] [address] documented as of this encounter Goals Goal Patient Goal Type Associated Problems Recent Progress Patient-Stated? Author Quit using tobacco (cigarettes, smokeless, etc) Tobacco Use No Corey Lin, PharmD documented as of this encounter Visit Diagnoses Diagnosis Rheumatoid arthritis involving multiple sites with positive rheumatoid factor (CMS/HCC) (HCC) documented in this encounter Care Teams System Administration Manager Relationship Specialty Start Date End Date Mackenzie Estrada MD [address] [place] [address] PCP - General Family Medicine 07/10/20 Casper Magaña, RN [address] [place] [address] [place] [address] Registered Nurse Family Medicine 01/18/25 01/18/25 Ruth Ann Price 02/19/25 02/19/25 Ruth Ann Price 02/19/25 02/28/25 Ruth Ann Price 03/29/25 04/03/25 Hemalatha Pretty Hydrological Technical OfficerKiln Firer 01/02/25 documented as of this encounter
--- OUTSIDE RECORDS SUMMARY | 2025-05-16 15:10 | XMS_ITS | Encounter Summary ---
Author Organization [employer] Address [address] [facility] [address] 7t [place] [address] Care Team Providers Care Conservation Science Officer Name Role Phone Mackenzie Estrada MD Primary Care Provider [phone] Casper Magaña RN Unavailable [phone] Ruth Ann Price Unavailable Unavailable Ruth Ann Price Unavailable Ruth Ann Price Unavailable Encounter Details Date Type Department Care Team (Late st Contact Info) Description 06/01/2023 Orders Only [facility] MEDICINE [address] [place] [address] Mackenzie Estrada MD [address] [place] [address] Encounter for smoking cessation counseling (Primary Dx) [...] Description 06/07/2025 3:45 PM EST Office Visit [facility] MEDICINE [address] [place] [address] Mackenzie Estrada MD [address] [place] [address] 07/09/2025 9:45 AM EST Office Visit [address] [address] documented as of this encounter Goals Goal Patient Goal Type Associated Problems Recent Progress Patient-Stated? Author Quit using tobacco (cigarettes, smokeless, etc) Tobacco Use Corey Cornell, PharmD documented as of this encounter Visit Diagnoses Diagnosis Encounter for smoking cessation counseling- Primary documented in this encounter Care Teams Conservation Science Officer Relationship Specialty Start Date End Date Mackenzie Estrada MD [address] [place] [address] PCP - General Family Medicine 07/10/20 Casper Magaña, JENNIFER [address] [place] [address] Registered Nurse Family Medicine 01/18/25 01/18/25 Ruth Ann Price 02/19/25 02/19/25 Ruth Ann Price 02/19/25 02/28/25 Ruth Ann Price 03/29/25 04/03/25 Hemalatha Pretty Corporate Bond TraderProposal Rep 01/02/25 documented as of this encounter
--- OUTSIDE RECORDS SUMMARY | 2025-05-16 15:10 | XMS_ITS | Encounter Summary ---
Author Organization [employer] Address [address] [facility] [address] 7t [place] [address] Care Team Providers Care Aquacultural Worker Supervisor Name Role Phone Mackenzie Estrada MD Primary Care Provider [phone] Casper Magaña RN Unavailable [phone] Ruth Ann Price Unavailable Unavailable Ruth Ann Price Unavailable Ruth Ann Price Unavailable Encounter Details Date Type Department Care Team (Late st Contact Info) Description 05/21/2024 Telephone [facility] MEDICINE 230 [place] [address] Mackenzie Estrada MD [address] [place] [address] Social History Tobacco Use Types Packs/Day Years [...] 06/07/2025 3:45 PM EST Office Visit [address] [address] Mackenzie Estrada MD [address] [place] [address] 07/09/2025 9:45 AM EST Office Visit [address] [address] documented as of this encounter Goals Goal [...] documented as of this encounter Care Teams Aquacultural Worker Supervisor Relationship Specialty Start Date End Date Mackenzie Estrada MD [address] [place] [address] PCP - General Family Medicine 07/10/20 Casper Magaña, RN [address] [place] [address] [place] [address] Registered Nurse Family Medicine 01/18/25 01/18/25 Ruth Ann Price 02/19/25 02/19/25 Ruth Ann Price 02/19/25 02/28/25 Ruth Ann Price 03/29/25 04/03/25 Hemalatha Pretty Assembly Room SupervisorMath Professor 01/02/25 documented as of this encounter
--- OUTSIDE RECORDS SUMMARY | 2025-05-16 15:10 | XMS_ITS | Encounter Summary ---
Author Organization [employer] Address 75 [facility] 7t [place] [address] Care Team Providers Care Carpet Installer Name Role Phone Makcenzie Estrada MD Primary Care Provider [phone] Casper Magaña RN Unavailable [phone] Ruth Ann Price Unavailable Unavailable Ruth Ann Price Unavailable Ruth Ann Price Unavailable Reason for Visit * Reason Comments Med Refill Encounter Details Date Type Department Care Team ([facility] Contact Info) Description 09/22/2022 Refill [facility] 230 [place] [address] Sarika Palacios, RHONA 230 [place] [address] Tinea pedis of both feet Social History [...] [facility] Contact Info) Description 06/07/2025 3:45 PM EST Office Visit [address] [address] Mackenzie Estrada MD 230 [place] [address] 07/09/2025 9:45 AM EST Office Visit [address] [address] documented as of this encounter Visit Diagnoses Diagnosis Tinea pedis of both feet documented in this encounter Care Teams Carpet Installer Relationship Specialty Start Date End Date Mackenzie Estrada MD [address] [place] [address] PCP - General Family Medicine 07/10/20 Casper Magaña, RN [address] [place] [address] Registered Nurse Family Medicine 01/18/25 01/18/25 Ruth Ann Price 02/19/25 02/19/25 Ruth Ann Price 02/19/25 02/28/25 Ruth Ann Price 03/29/25 04/03/25 Hemalatha Pretty Buttonhole MarkerFinancial Aid 01/02/25 documented as of this encounter
--- OUTSIDE RECORDS SUMMARY | 2025-05-16 15:10 | XMS_ITS | Encounter Summary ---
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 [...] Description 06/07/2025 3:45 PM EST Office Visit [facility] [address] [place] [address] Mackenzie Estrada MD [address] [place] [address] 07/09/2025 9:45 AM EST Office Visit [facility] [address] [place] [address] documented as of this encounter Goals Goal [...] documented as of this encounter Care Teams Jail Guard Relationship Specialty Start Date End Date Mackenzie Estrada MD 230 [place] [address] PCP - General Family Medicine 07/10/20 Ruth Ann Price 03/29/25 04/03/25 Hemalatha Pretty Nursery TeacherGeriatric Assistant 01/02/25 documented as of this encounter
--- OUTSIDE RECORDS SUMMARY | 2025-05-16 15:10 | XMS_ITS | Encounter Summary ---
Author Organization [employer] Address [address] [facility] 7[address] [place] [address] Care Team Providers Care Ice Hockey Coach Name Role Phone Mackenzie Estrada MD Primary Care Provider [phone] Casper Magaña RN Unavailable [phone] Ruth Ann Price Unavailable Unavailable Ruth Ann Price Unavailable Ruth Ann Price Unavailable Reason for Visit * Reason Comments Med Refill Encounter Details Date Type Department Care Team (Late st Contact Info) Description 07/27/2023 Refill [facility] [address] [place] [address] Name, MD Mark [address] [place] [address] Pain in both hands Social History Tobacco [...] Description 06/07/2025 3:45 PM EST Office Visit [address] [address] Mackenzie Estrada MD [address] [place] [phone] 07/09/2025 9:45 AM EST Office Visit [address] [address] documented as of this encounter Goals Goal Patient Goal Type Associated Problems Recent Progress Patient-Stated? Author Quit using tobacco (cigarettes, smokeless, etc) Tobacco Use No Corey Lin, Bailey documented as of this encounter Visit Diagnoses Diagnosis Pain in both hands documented in this encounter Care Teams Ice Hockey Coach Relationship Specialty Start Date End Date Mackenzie Estrada MD [address] [place] [id number] PCP - General Family Medicine 07/10/20 Casper Magaña, JENNIFER [address] [place] [address] Registered Nurse Family Medicine 01/18/25 01/18/25 Ruth Ann Price 02/19/25 02/19/25 Ruth Ann Price 02/19/25 02/28/25 Ruth Ann Price 03/29/25 04/03/25 Hemalatha Pretty Machine Room OperatorSignal Processing Engineer 01/02/25 documented as of this encounter
--- OUTSIDE RECORDS SUMMARY | 2025-05-16 15:10 | XMS_ITS | Encounter Summary ---
Author Organization [employer] Address [address] [facility] 7t [place] [address] Care Team Providers Care Bonsai Tender Name Role Phone Mackenzie Estrada MD Primary Care Provider [phone] Casper Magaña RN Unavailable [phone] Ruth Ann Price Unavailable Unavailable Ruth Ann Price Unavailable Ruth Ann Price Unavailable Reason for Visit * Reason Onset Date Comments Error 08/16/2023 Encounter Details Date Type Department Care Team ([facility] st Contact Info) Description 08/16/2023 Telephone [facility] [address] [place], [place] [id number] Mackenzie Estrada MD [address] [place], [place] [phone] Error Social History Tobacco Use Types Packs/Day [...] 06/07/2025 3:45 PM EST Office Visit [address] [address] Mackenzie Estrada MD [address] [place] [address] 07/09/2025 9:45 AM EST Office Visit [address] [address] documented as of this encounter Goals Goal Patient Goal Type Associated Problems Recent Progress Patient-Stated? Author Quit using tobacco (cigarettes, smokeless, etc) Tobacco Use No Corey Lin, Bailey documented as of this encounter Visit Diagnoses Not on filedocumented in this encounter Care Teams Bonsai Tender Relationship Specialty Start Date End Date Mackenzie Estrada MD [address] [place] [phone] PCP - General Family Medicine 07/10/20 Casper Magaña, JENNIFER [address] [place] [address] Registered Nurse Family Medicine 01/18/25 01/18/25 Ruth Ann Price 02/19/25 02/19/25 Ruth Ann Price 02/19/25 02/28/25 Ruth Ann Price 03/29/25 04/03/25 Hemalatha Pretty Aircraft Mechanic StructuresBerry Picker Machine Operator 01/02/25 documented as of this encounter
== END 2025-05-16 11:54 | disposition home or self-care (01) ==
LOC: HO.HHCL 11:53
PROVIDERS: Student in an Organized Health Care Education/Training Program; PCP General Practice; Visit Provider Nurse Practitioner
DX: Z01.818 Encounter for other preprocedural examination (principal); M05.9 Rheumatoid arthritis with rheumatoid factor, unspecified
CPT/HCPCS: 36415; 80053; 80061; 85025; 85610; 85730

== ENCOUNTER 2025-05-23 12:23 | Outpatient (AMB) | payer MEDICAID, SELFPAY ==
--- NOTE | 2025-05-23 13:30 | A.OFFVIS_ITS ---
Vital Signs 05/23/25 13:31 Height 5 ft 2 in Weight 191 lb 5.78 oz BMI 35.0 BP 120/72 Blood Pressure Location Lt brachial Position Sitting Pulse 66 Pulse Source Monitor Intake Visit Reasons: f/up-abd EKG Director Index Required: Yes Director Index Name: michael patel [id number] Allergies almond (ALMONDS) Allergy (Severe, Verified 05/23/25 13:34) ANAPHYLAXIS adhesive tape (ADHESIVE TAPE) Allergy (Intermediate, Verified 05/23/25 13:34) RASH morphine (MORPHINE) Allergy (Intermediate, Verified 05/23/25 13:34) GI UPSET, difficulty breathing leflunomide Adverse Reaction (Intermediate, Verified 05/23/25 13:34) twitching tramadol (TRAMADOL) Adverse Reaction (Unknown, Verified 05/23/25 13:34) NAUSEA & VOMITING Medication List - Last Reconciled 05/23/25 by More Liz, ENERGY EFFICIENT SITE MANAGER-C acetaminophen (Tylenol Extra Strength) 1,000 mg (2 x 500 mg) PO Q8H PRN albuterol sulfate 90 mcg/actuation 2 puffs inhalation Q6H PRN alprazolam 1 mg PO BEDTIME PRN apixaban (Eliquis) 5 mg PO BID ascorbic acid (vitamin C) (Vitamin C) 1,000 mg (2 x 500 mg) PO QAM atorvastatin 80 mg PO DAILY cetirizine 10 mg PO QAM cholecalciferol (vitamin D3) (Vitamin D3) 25 mcg PO DAILY clopidogrel 75 mg PO DAILY cyclobenzaprine 5 mg PO TID PRN 7 days docusate sodium 100 mg PO BID famotidine 20 mg PO BID ferrous sulfate 325 mg PO QAM gabapentin 400 mg PO TID metoprolol succinate ER 50 mg PO DAILY nicotine 1 patch topical QAM oxycodone-acetaminophen 7.5-325 mg 1 tab PO Q6H PRN prednisone 5 mg PO DAILY risperidone 0.5 mg PO DAILY PRN sertraline (Zoloft) 75 mg PO DAILY umeclidinium 62.5 mcg/actuation (Incruse Ellipta) 1 inh inhalation DAILY ursodiol 250 mg PO BID vitamin A 1 cap PO QAM HPI HPI f/up-abd EKG: Details: Ginette is a 49-year-old female with past medical history of fibromyalgia, rheumatoid arthritis, SLE, non-Hodgkin's lymphoma 2004, smoking, PAD, DVT and on Eliquis, NSTEMI 05/2024 with cardiac catheterization showed 80% mid LAD stenosis and stent was placed. She now presents for preop clearance for surgery on her elbow. Today she reports that she has been getting chest discomfort recently that comes and goes and has traveled into her left arm. She says the chest portion feels like the symptoms she had when she had her NSTEMI. Her symptom can happen at rest or with activity. She was recently seen in the emergency room for this symptom and was given 4 aspirin and nitroglycerin with relief of her discomfort. Her troponin was less than 2.7. She left prior to being evaluated further. She denies shortness of breath, PND, orthopnea or edema. No heart palpitations, lightheadedness, presyncope, syncope, falls. She ambulates with a cane and has mobility issues from her arthritis. She does have discomfort in her left lateral neck that she notices more with range of motion of that left arm. She does light physical activities. She is taking meds as directed. No longer smoking. Needs surgery on her elbow in the near future, no date yet. [facility] Medical History PAD (peripheral artery disease) Skin lesion Anxiety Achilles tendinitis Superficial femoral artery occlusion Knee pain, left Depression Hx of peripheral pulmonary artery stenosis History of chemotherapy Cancer of heart Bone cancer Lung cancer Iron deficiency Seropositive rheumatoid arthritis Bleeding hemorrhoid Degeneration, intervertebral disc, lumbar Chronic GERD Degeneration of intervertebral disc at C4-C5 level Osteoarthritis of spine with radiculopathy, lumbar region Fibromyalgia Esophageal dysphagia Vitamin D deficiency Systemic lupus erythematosus Seropositive rheumatoid arthritis Rheumatoid arthritis involving multiple sites Gallstones Stress incontinence in female Nocturia Urgency-frequency syndrome De Quervain's disease (tenosynovitis) Depressive disorder Acute arthritis Hodgkin disease Surgical History History of heart surgery History of surgical removal of skin lesion (~07/13/23) History of angioplasty of vein History of biopsy H/O tubal ligation Hx of endoscopy Hx laparoscopic cholecystectomy Hx of colonoscopy History of esophagogastroduodenoscopy (EGD) History of repair of inguinal hernia History of lymph node dissection of left axilla Family History Maternal Grandmother Ovarian cancer Social History Household Members: Significant Other Housing: Apartment Are you a primary vp care management to a significant other at home: No Alcohol intake: never Comment: son at bedside Patient Tobacco Use Status: Never used Tobacco Tobacco use type: Cigarette Cigarette Packs Per Day: 1 Cigarettes Per Day: 20.0 Substance Use Type: Marijuana Advance Directives Date on File: 02/24/24 service: No Current occupational status: disabled 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 of Systems Const All systems reviewed & are unremarkable except as noted in HPI and below ENT Denies dizziness Card Reports chest pain, Reports chest pain at rest, Reports chest pain with activity, Denies rapid heart rate, Denies pedal edema, Denies edema, Denies leg edema, Denies lightheadedness, Denies palpitations, Denies dyspnea, Denies dyspnea on exertion and Denies orthopnea Resp Denies cough, Denies dyspnea and Denies dyspnea on exertion GI Denies hematochezia and Denies change in stool character Musc Denies abnormal gait, Denies limited range of motion, Denies muscle cramps, Denies muscle weakness, Denies numbness, Denies radiating pain into limb, Denies stiffness and Denies tingling Neuro Denies abnormal gait, Denies dizziness, Denies numbness and Denies tingling Endo Denies palpitations Physical Exam Vital Signs: Last Vital Signs Pulse 66 05/23/25 13:31 BP 120/72 05/23/25 13:31 BMI result Body Mass Index 35.0 Const Other: has arthritis and ambulates with cane General: cooperative, healthy appearing, comfortable and no acute distress Orientation/consciousness: patient oriented x3 Neck Neck: Yes normal visual inspection Resp Effort & Inspection: normal respiratory effort Auscultation: clear to auscultation bilaterally, no crackles, no rales, no rhonchi and no wheezes Cardio Jugular venous distension: no JVD Rate: regular rate Rhythm: regular rhythm Heart sounds: S1 normal heart sound present, S2 normal heart sound present, no gallops, no murmurs and no rubs Neuro General: patient oriented x3 Extrem General: Yes normal to inspection and No no pedal edema Psych Appearance: grossly normal Mental Status: mental status grossly normal Speech and movement: Normal speech and movement present Office Procedures EKG Details: Today, read by me, normal sinus rhythm, left anterior fascicular block, moderate voltage criteria for LVH, rate 66, QTC 419 milliseconds [id number], Complete Assessment & Plan Assessment & Plan (1) Chest pain, precordial: Code(s): R07.2 - Precordial pain Category: Medical Plan: Reports of chest discomfort at rest and with activity. History of NSTEMI with LAD stent placed 05/28/2024. Recent ER evaluation for chest discomfort and left prior to full evaluation. Troponin was normal. EKG today showing sinus rhythm with left anterior fascicular block which is unchanged from prior, rate 66. Due to her reports of chest discomfort will order a pharmacological nuclear stress test to evaluate for ischemia. She is unable to walk on the treadmill due to mobility issues. Instructed to seek emergency medical care if she does have chest discomfort that is persistent. Cardiology follow-up 4-6 weeks, sooner if needed. (2) Coronary artery disease: Code(s): I25.10 - Atherosclerotic heart disease of [place] coronary artery without angina pectoris Category: Medical Plan: History of CAD, NSTEMI, LAD stent 05/28/2024. Other vessels normal at that time. Now with chest discomfort as above, does sound atypical however does need evaluation. Continue Plavix and Eliquis, continue atorvastatin 80 mg daily with LDL goal less than 70. Continue metoprolol. (3) S/P cardiac cath: Comment: 05/28/2024 mid LAD 80% stenosis, RHIANNON placed, left main, left circumflex and RCA normal Code(s): Z98.890 - Other specified postprocedural states Category: Medical Plan: As above (4) Stented coronary artery: Comment: LAD stent 05/28/2024 Code(s): Z95.5 - Presence of coronary angioplasty implant and graft Category: Medical Plan: As above (5) Preop cardiovascular exam: Code(s): Z01.810 - Encounter for preprocedural cardiovascular examination Category: Medical Plan: Preop for orthopedic surgery, no date yet. Her EKG does show sinus rhythm with left anterior fascicular block which is not a new finding for her, rate 66. She is reporting chest discomfort and a pharmacological nuclear stress test will be done to evaluate for any ischemia. Full preop clearance will be addressed post stress test results. If stress is normal then she can be cleared with intermediate cardiac risk. Plavix could be held as needed for the procedure. She is on Eliquis for prior DVT and is managed by her PCP. (6) Deep vein thrombophlebitis of right leg: Comment: 12/2021:acute partial DVT right proximal and distal posterior tibial vein. 2019: Anti cardiolipin antibody, anti beta 2 glycoprotein antibody, and lupus anticoagulant all negative Code(s): I80.201 - Phlebitis and thrombophlebitis of unspecified deep vessels of right lower extremity Category: Medical Plan: On Eliquis for this reason. She has no known history of atrial fibrillation. (7) Hyperlipidemia: Code(s): E78.5 - Hyperlipidemia, unspecified Category: Medical Plan: [place] LDL goal less than 70 in patient with CAD. Labs done 05/16/2025 showed LDL 179. She does report compliance with atorvastatin 80 mg each night. Unclear if this lab was fasting or not. Will add Zetia 10 mg daily. Will recheck with fasting lipids in near future. Plan Time spent on chart review, documentation, interview and assessment Orders: Orders CA lexiscan stress w ta Today I25.10 - Atherosclerotic heart disease of [place] coronary artery without angina pectoris, R07.2 - Precordial pain, Z95.5 - Presence of coronary angioplasty implant and graft NM cardiolite stress test Today I25.10 - Atherosclerotic heart disease of [place] coronary artery without angina pectoris, R07.2 - Precordial pain, Z98.890 - Other specified postprocedural states Medications: New ezetimibe (Zetia) 10 mg PO DAILY 30 tabs 5RF Coding Level of Care Code Est Pt Level 4 (26497) Complex EM visit Add On G2211 Diagnoses Chest pain, precordial R07.2 Coronary artery disease I25.10 S/P cardiac cath Z98.890 Stented coronary artery Z95.5 Preop cardiovascular exam Z01.810 Deep vein thrombophlebitis of right leg I80.201 Hyperlipidemia E78.5 CPT Codes EKG - CPT: [id number]-[id number], Complete ([id number]) Time Spent (min) 32
[2025-05-23 13:31] VITALS: BP 120/72; PULSE 66; BMI 35.0
--- OUTSIDE RECORDS SUMMARY | 2025-05-23 15:33 | XMS_ITS | Clinical Summary ---
Author Organization [facility] Address [address] [place] [address] Support Name Relationship Address Phone Brayden Hernandez Emergency Contact [address] [place] [address] Care Team Providers Care Slip Operator Name Role Phone Abdullahi Lizarraga MD Primary Care Provider [phone] Allergies Active Allergy Reactions Criticality Noted Date [...] age to complete this topic Care Teams Slip Operator Relationship Specialty Start Date End Date Abdullahi Lizarraga MD [address] [place] [address] PCP - General Nephrology 03/10/18
--- OUTSIDE RECORDS SUMMARY | 2025-05-23 15:33 | XMS_ITS | Clinical Summary ---
Author Organization [facility] Address [address] [place] [address] Care Team Providers Care Order Desk Caller Name Role Phone Sanjay Cruz MD Primary Care Provi [facility] Surgical History Surgery Date Site/Laterality Comments OTHER SURGICAL HISTORY 05/12/2020 Right PROCEDURE: SC BX/EXC LYMPH NODE OPEN SUPERFICIAL; COMMENT: Axillary Lymph Node biopsy- Benign Lymphoid Tissue OTHER SURGICAL HISTORY 12/19/2019 Right PROCEDURE: SC BX/EXC LYMPH NODE NEEDLE SUPERFICIAL; COMMENT: Axillary Lymph node -results were non daignostic Medical History Medical History Date Comments Anxiety DX:Anxiety Migraine DX:Migraine History of DVT (deep vein thrombosis) 05/23/2020 DX:History of DVT (deep vein thrombosis); COMMENT: 01/2005 Right 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 buttermaker current use of anticoagulant 0 DX:residential current use of anticoagulant Acute deep vein thrombosis ( DVT) of brachial vein of right upper extremity ([facility] V24, [facility] V28) 05/09/2020 DX:Acute deep vein thrombos is (DVT) of brachial vein of right upper extremity (HCC) Axillary lymphadenopathy 05/09/2020 DX:Axil harvinder lymphadenopathy Gastroesophageal reflux disease 05/09/2020 DX:Gastroesophageal reflux disease Personal history of Hodgkin lymphoma 05/09/2020 DX:Personal history of Hodgkin lymphoma Recurrent major depressive d isorder in remission ([facility] V24) 05/09/2020 DX:Recurrent major depressiv e disorder in remission (HCC) Rheumatoid arthritis involvi ng multiple sites ([facility] V24, [facility] V28) 05/09/2020 DX:Rheumatoid arthritis invo lving multiple sites (HCC) Hodgkin's disease, nodular s clerosis, of lymph nodes of multiple sites ([facility] V24, [facility] V28) DX:Hodgkin's disease, nodul ar sclerosis, [...] age to complete this topic Care Teams Order Desk Caller Relationship Specialty Start Date End Date Subramonia-Sanjay Espana MD [address] [place] [phone] PCP - General Internal Medicine 04/09/20
== END 2025-05-23 14:12 | disposition home or self-care (01) ==
LOC: HO.HCS 12:23
PROVIDERS: PCP General Practice; Visit Provider Nurse Practitioner Family
DX: R07.2 Precordial pain (principal); I25.10 Atherosclerotic heart disease of native coronary artery without angina pectoris; Z98.890 Other specified postprocedural states; Z95.5 Presence of coronary angioplasty implant and graft; Z01.810 Encounter for preprocedural cardiovascular examination; I80.201 Phlebitis and thrombophlebitis of unspecified deep vessels of right lower extremity; E78.5 Hyperlipidemia, unspecified
CPT/HCPCS: 93010; 99214

== ENCOUNTER → 2025-05-23 12:23 | Outpatient (BNVA) | payer MEDICAID, SELFPAY | PROVIDERS: PCP General Practice; Visit Provider Nurse Practitioner Family | DX: Z01.810 Encounter for preprocedural cardiovascular examination (principal); R07.2 Precordial pain; I25.10 Atherosclerotic heart disease of native coronary artery without angina pectoris; Z95.5 Presence of coronary angioplasty implant and graft; I80.201 Phlebitis and thrombophlebitis of unspecified deep vessels of right lower extremity; E78.5 Hyperlipidemia, unspecified | CPT/HCPCS: 93005; 99212 ==

== ENCOUNTER → 2025-06-12 07:34 | Outpatient (REF) | payer MEDICAID, SELFPAY ==
--- OUTSIDE RECORDS SUMMARY | 2025-06-07 15:45 | XMS_ITS | Encounter Summary ---
Author Organization [employer] Address [address] [facility] 7t [place] [address] Care Team Providers Care Tree Faller Name Role Phone Mackenzie Estrada MD Primary Care Provider [phone] Reason for Visit * Reason Comments Follow-up Encounter Details Date Type Department Care Team ([facility] Contact Info) Description 06/07/2025 3:45 PM EST Office Visit [facility] MED[facility]INE [address] [place], [place] [phone] Mackenzie Estrada MD [address] [place] [address] Bilateral impacted cerumen (Primary Dx); 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 ([facility]); Rheumatoid arthritis involving multiple sites with positive rheumatoid factor (CMS/HCC) ([facility]); Soft tissue lesion of elbow region; Chronic low back pain, unspecified back pain laterality, unspecified whether sciatica present; Tobacco dependence; Class 1 obesity with serious comorbidity and body mass index (BMI) of 33.0 to 33.9 in adult, unspecified obesity type; 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; Personal history of Hodgkin lymphoma; NSTEMI (non-ST elevated myocardial infarction) ([facility]); Long-term current use of opiate analgesic Social [...] Sign Reading Time Taken Comments Blood Pressure 136/80 06/07/2025 3:28 PM EST Pulse 87 06/07/2025 3:28 PM EST Temperature 36.4 C (97.6 F) 06/07/2025 3:28 PM EST Respiratory Rate 20 06/07/2025 3:28 PM EST Oxygen Saturation 96% 06/07/2025 3:28 PM EST Inhaled Oxygen Concentration - - Weight 90.3 kg (199 lb) 06/07/2025 3:28 PM EST Height 157.5 cm (5' 2 ) 06/07/2025 3:28 PM EST Body Mass Index 36.4 06/07/2025 3:28 PM EST documented in this encounter Progress Notes * Mackenzie Estrada MD - 06/07/2025 3:45 PM EST SUBJECTIVE: Ginette Lacy is a 49 y.o. female who presents for chronic disease management. Denies recent illness, ER visit, or hospitalization. Acute Concerns: Leaving for [facility] tomorrow morning for two weeks due to of 's father. Needs early refillof Percocet to have enough to cover for her travels. 2. Her surgeries to remove calcified rheumatoid nodules are on hold due to need for cardiac clearance 3. Bactrim prescribed for ongoing skin infections Chronic Conditions and Plans: RF++CCP++ With AVN of hip, try to avoid STEROIDS! INCREASE PERCOCET TO 7.5mg/325 every 6 hours (on DIRECTOR PATIENT [employer]ANCIAL [employer] contract, compliant) Attending chronic pain groups on Tuesdays Tim 05/2020-08/2020(ineffective) 2020 methotrexate and Humira(HCQ stopped - ?vision changes). 06/2022 Humira stopped due to poor repsonse 06/2022 methotrexate and Actemra 12/2022: Actemra stopped by the patient. She had some leg swelling as well. 03/10/2023 and 03/24/23: 1 g on each day rituximab administered Olumiant 2mg daily (Evelio 2 inhibitor) 08/2023 effective Could not tolerate leuflonomide 09/14/24 saw physiatry for consult, recommend PT Infected tophi of elbows in Fall/winter 2023 Lab Results Component Value Date ESR 101 (H) 04/24/2024 ESR 92 (H) 04/13/2024 ESR 92 (H) 04/11/2024 ESR 72 (H) 12/02/2023 ESR 88 (H) 07/12/2023 ESR 81 (H) 06/25/2023 ESR 85 (H) 06/09/2023 Dr. Corley, rheum at [facility] 10/16/24 - Stop Orencia infusions - Start Actemra infusions. 8mg/kg every 4 weeks - Continue methotrexate 25mg every week split dosing - Folic acid 1 mg every day - Check lipid panel and infectious labs today - RTC 3 months - Labs before visit: CBC, CMP, ESR, CRP, hepatitis panel, T spot, lipid panel vasc [id number] Right leg:Severe inflow disease throughout the interrogated vessels. Occluded superficial femoral artery. Old. Vascular disease Left leg Severe inflow disease throughout the interrogated vessels. 11/20/24 vascular f/u Dr Hughes NSTEMI RHIANNON placed 05/202406/18/24 cards dalila haasier, plavix for 1 year 10/03/24 Cards f/u, will check EF in few months Hip osteonecrosis/RA 12/2023 Rheum: Idiopathic aseptic necrosis of left femur. Minimal collapse and symptoms are mild. Estelle Scooter arrived for increased mobility, she is practicing at home 07/27/24 ER for pain 08/27/2024 ortho f.u for L shoulder pain 09/14/24 physiatry appt, xrays ordered 11/09/24 ER L shoulder pain Dizziness is mostly when walking MRI Brain 01/08/24 showed no intracerebral cause for dizziness Pelvic pain MRI pelvis results, completed at [facility] 11/25/23 IMPRESSION: * Normal uterus and ovaries. No evidence of uterine adenomyosis or endometriosis. * Small fat-containing left inguinal hernia. * There is stage 2 osteonecrosis of the anterosuperior left femoral head. * Mild edema-like signal change within the distal left iliopsoas is consistent with mild muscle strain. Anxiety/depression Moved apartments 12/2023 and that felt relieving Taking psych meds per Dr. 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 History of Hogkins lymphoma Needs routine surveillance after treatment Health Maintenance Smoking- daily, quitting Pap- 09/2023 NILM/HPV neg Mammo- May 2025, Birads 2 Imms- Due for Flu, COVID, zoster Patient Active Problem List Diagnosis Date Noted Precordial pain 05/14/2025 Soft tissue lesion of elbow region 01/24/2025 Cervical paraspinal muscle spasm 01/24/2025 Long-term current use of opiate analgesic 08/13/2024 Right hip pain 07/12/2024 Pain and swelling of left wrist 07/12/2024 Epicondylitis elbow, medial, left 07/03/2024 NSTEMI (non-ST elevated myocardial infarction) ([facility]) 07/03/2024 Periodontal disease 03/01/2024 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 ([facility]) ([facility]) 01/26/2024 Inflammatory arthritis 01/26/2024 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 ([facility]) 01/02/2024 Class 1 obesity with serious comorbidity and body mass index (BMI) of 33.0 to 33.9 in adult 09/28/2023 Chronic lower back pain 09/16/2023 Leg pain, anterior, left 09/16/2023 Tobacco dependence 03/07/2023 Constipation 07/03/2022 Hand pain 07/03/2022 History of 2019 novel coronavirus disease (COVID-19) 07/03/2022 Lumbosacral stenosis 07/03/2022 Acute deep vein thrombosis (DVT) of tibial vein of right lower extremity ([facility]) 01/29/2022 Leg edema 12/05/2020 History of DVT (deep vein thrombosis) 05/23/2020 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 05/23/2020 Personal history of Hodgkin lymphoma 05/09/2020 Axillary lymphadenopathy 05/09/2020 Acute deep vein thrombosis (DVT) of brachial vein of right upper extremity ([facility]) 03/07/2020 Lymphadenopathy, generalized 03/07/2020 Migraine without status migrainosus, not intractable 12/06/2017 Paresthesia and pain of left extremity 12/06/2017 Gastroesophageal reflux disease 06/03/2017 Rheumatoid arthritis involving multiple sites ([facility]) ([facility]) 06/03/2017 Absolute anemia 06/03/2017 Lymphadenopathy of left cervical region 06/03/2017 Recurrent major depressive disorder, in remission ([facility]) 06/03/2017 Mediastinal lymphadenopathy 10/24/2012 Fatigue 08/09/2012 Goiter 08/09/2012 Cobalamin deficiency 04/19/2012 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 01/17/2012 Nodular sclerosis Hodgkin lymphoma of lymph nodes of multiple regions ([facility]) ([facility]) 01/17/2012 Anxiety 01/05/2012 Depressive disorder 01/05/2012 Left hand pain 03/03/2023 Stress incontinence 10/18/2022 Chronic occlusion of artery of extremity 07/03/2022 Surgical History[1] Social History Social History Narrative Lives with I ground floor apartment 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 HENT: Negative. Respiratory: Positive for cough and shortness of breath. Cardiovascular: Positive for chest pain. Gastrointestinal: Negative. Genitourinary: Negative. Musculoskeletal: Positive for arthralgias and back pain. Skin: Positive for wound. Neurological: Positive for weakness. OBJECTIVE: Vitals: 06/07/25 1528 BP: 136/80 BP Location: Left arm Patient Position: Sitting BP Cuff Size: Large adult Pulse: 87 Resp: 20 Temp: 97.6 ??F (36.4 ??C) TempSrc: Oral SpO2: 96% Weight: 199 lb (90.3 kg) Height: 5' 2 (1.575 m) Physical Exam ASSESSMENT/PLAN Problem List Items Addressed This Visit Rheumatoid arthritis involving multiple sites ([facility]) ([facility]) Overview - Following with [facility] Rheumatology: Dr. 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 ECHO revealed LVEF 51%, abnormal septal motion consistent with conduction abnormality, mild mitral and tricuspid regurgitation, and mildly elevated CVP to 8 mmHg. EKG demonstrated prolonged Qtc to 556 msec Relevant Medications oxyCODONE-acetaminophen (Percocet) 7.5-325 MG tablet ezetimibe (Zetia) 10 MG tablet Long-term current use of opiate analgesic Overview Medication: Percocet 7.5/325mg Q6H PRN Indication: Rheumatoid arthritis Last [employer] Agreement: 05/14/25 Tier: II (Q3 months visits), Dr. Estrada 08/15/24 Relevant Medications oxyCODONE-acetaminophen (Percocet) 7.5-325 MG tablet Soft tissue lesion of elbow region Relevant Medications oxyCODONE-acetaminophen (Percocet) 7.5-325 MG tablet sulfamethoxazole-trimethoprim (Bactrim DS) 800-160 MG tablet Other Visit Diagnoses Bilateral impacted cerumen - Primary Relevant Medications carbamide peroxide (Debrox) 6.5 % otic solution Follow Up: 3 months or sooner prn Allergies[2] Current Medications[3] Kosovan Translation: Provided by [facility] staff member SARAI Claire [1] Past Surgical History: Procedure Laterality Date CHOLECYSTECTOMY CTA ABDOMEN PELVIS W AND WO CONTRAST 04/22/2023 CTA ABDOMEN AORTA RUNOFF ESOPHAGEAL MANOMETRY HERNIA REPAIR [2] Allergies Allergen Reactions Almonds [[place] Oil] Anaphylaxis [place] (Diagnostic) Morphine Other reaction(s): Unknown Pedi-Pre Tape Blacklick [Wound Dressing Adhesive] Tramadol Other reaction(s): Vomiting [3] Current Outpatient Medications: ezetimibe (Zetia) 10 MG tablet, Take 10 mg by mouth in the morning., Disp: , Rfl: acetaminophen (Tylenol) 500 MG tablet, Take 1 tablet (500 mg) by mouth every 6 (six) hours if needed for moderate pain or fever., Disp: 50 tablet, Rfl: 0 albuterol (Ventolin HFA) 108 (90 Base) MCG/ACT [...] Rfl: beta carotene (vitamin A) 3 MG (29123 UT) capsule, Take by mouth in the morning., Disp: , Rfl: carbamide peroxide (Debrox) 6.5 % otic solution, Administer 5-10 drops into affected ear(s) 2 timesdaily for 4 days., Disp: 30 mL, Rfl: 0 cetirizine (ZyrTEC) 10 MG tablet, TAKE 1 [...] THE MORNING AND IN THE EVENING, Disp: 60tablet, Rfl: 3 famotidine (Pepcid) 20 MG tablet, TAKE 1 TABLET BY MOUTH TWICE DAILY AT NOON AND IN THE EVENING, Disp: 180 tablet, Rfl: 3 Ferrous Sulfate (iron) 325 (65 Fe) MG tablet, TAKE 1 TABLET BY MOUTH EVERY MORNING, Disp: 90 tablet, Rfl: 3 folic acid (Folvite) 1 MG tablet, Take 1 tablet (1,000 mcg) by mouth in the morning., Disp: 90 tablet, Rfl: 3 gabapentin (Neurontin) 400 MG capsule, TAKE 1 CAPSULE BY MOUTH THREE TIMES DAILY IN THE MORNING, EVENING, AND BEDTIME (1 EXTRA IN VIAL NEEDED), Disp: 120 capsule, Rfl: 6 Incruse Ellipta 62.5 MCG/ACT aerosol powder , INHALE 1 PUFF BY MOUTH EVERY DAY AT THE SAME TIME RINSE MOUTH AFTER USING, Disp: 30 each, Rfl: 11 ketoconazole (NIZOral) 2 % shampoo, Apply topically 2 (two) times a week. Apply 5 to 10 mL to wet scalp; leave on for 3 to 5 minutes and then rinse off thoroughly, Disp: 120 mL, Rfl: 1 lidocaine (Lidoderm) 5 % patch, APPLY 1 [...] per day., Disp: 90 tablet, Rfl: 3 nitroglycerin (Nitrostat) 0.4 MG SL tablet, Place 1 tablet under the tongue every 5 (five) minutes if needed for chest pain. Max 3 doses in 15 min. Call 911/seek medical attention if pain persists, Disp: , Rfl: oxyCODONE-acetaminophen (Percocet) 7.5-325 MG tablet, Take 1 tablet by mouth every 6 (six) hours ifneeded for severe pain for up to 28 days., Disp: 112 tablet, Rfl: 0 risperiDONE (RisperDAL) 1 MG tablet, take 1 tablet by oral route at bedtime and 1/2 tablet daily asneeded for agitation or anxiety, Disp: , Rfl: [employer] ([employer]) [facility], , Disp: , Rfl: sulfamethoxazole-trimethoprim (Bactrim DS) 800-160 MG tablet, Take 1 tablet by mouth 2 times daily for 7 days., Disp: 14 tablet, Rfl: 0 traZODone (Desyrel) 150 MG tablet, take 1 tablet by oral route every day at bedtime as needed, Disp: , Rfl: ursodiol (Actigall) 250 MG tablet, TAKE 1 TABLET BY MOUTH TWICE DAILY IN THE MORNING AND IN THE EVENING, Disp: 60 tablet, Rfl: 11 Vitamin D High Potency 25 MCG (1000 UT) capsule, Take 25 mcg by mouth in the morning., Disp: , Rfl: No current facility-administered medications for this visit. documented in this encounter Plan of Treatment Upcoming Encounters Date Type Department Care Team (Late st Contact Info) Description 07/09/2025 9:45 AM EST Office Visit [facility] MEDICINE [address] [place] [id number] documented as of this encounter Goals Goal Patient Goal Type Associated Problems Recent Progress Patient-Stated? Author Quit using tobacco (cigarettes, smokeless, etc) Tobacco Use Corey Cornell, PharmD documented as of this encounter Visit Diagnoses Diagnosis Bilateral impacted cerumen- Primary Impacted cerumen 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 (HCC) Rheumatoid arthritis involving multiple sites with positive rheumatoid factor (CMS/HCC) (HCC) Soft tissue lesion of elbow region Chronic low back pain, unspecified back pain laterality, unspecified whether sciatica present Tobacco dependence Tobacco use disorder Class 1 obesity with serious comorbidity and body mass index (BMI) of 33.0 to 33.9 in adult, unspecified obesity type retirement current use of anticoagulant Personal history of Hodgkin lymphoma NSTEMI (non-ST elevated myocardial infarction) (HCC) Acute myocardial infarction, subendocardial infarction, episode of care unspecified Long-term current use of opiate analgesic Encounter for long-term (current) use of other medications documented in this encounter Additional Health Concerns Assessment Noted Time PHQ-9 Depression Total Score: 6 04/03/20 11:40 AM EDT documented as of this encounter Care Teams Tree Faller Relationship Specialty Start Date End Date Mackenzie Estrada MD [address] [place] [id number] PCP - General Family Medicine 07/10/20 Hemalatha Pretty Towel FolderStiff Straw Hat Washer 01/02/25 documented as of this encounter
--- NOTE | ~2025-06-12 | NM_ITS ---
Lexiscan Myocardial perfusion study Indication: Precordial pain to evaluate for myocardial ischemia Technique: The patient was brought in for a Lexiscan perfusion study on 06/12/2025 and was injected 0.4 mg of Lexiscan intravenously. Within a minute of this injection 30 mCi of sestamibi was given intravenously. Images were obtained using the SPECT gamma camera interlaced with the gating device. Images were obtained in supine position. Resting perfusion study was performed on 06/13/2025. Patient was administered 30 mCi of sestamibi intravenously at rest. Images were then obtained in supine position. Images were processed with the software and compared side to side in short axis, horizontal long axis and vertical long axis views. Images obtained without without CT attenuation. Total DLP 141 mGy-cm. Findings: The stress perfusion study showed nonattenuated images show normal uptake of radiotracer in all segments of the LV myocardium with small area of focal mildly reduced uptake in the inferoapical portion of the LV myocardium. Attenuated corrected images show mildly reduced uptake in the septum as well as apex as well as distal anterior wall of the LV myocardium. There is suggestion of left ventricular hypertrophy. The gated study shows normal LV systolic function with calculated LVEF of 54%. LV cavity is normal in size. The gated study shows normal systolic wall thickening and contraction of segments. Resting study shows nonattenuated images show no change in perfusion pattern compared to stress perfusion study. Gating at rest reveals normal systolic wall motion with ejection fraction at 53%. The findings are consistent with likely normal myocardial perfusion. NM/NM cardiolite stress test Impression: 1. Myocardial perfusion imaging study shows likely normal myocardial perfusion 2. Gated LVEF is 54% 3. Transient ischemic dilatation not present Nondiagnostic changes on EKG. Electronically signed by: Robin Felton MD 06/13/2025 03:44 PM [facility]
--- NOTE | 2025-06-12 07:37 | CA_ITS ---
Acquisition Time: 2025-06-12 08:13:25 Total Exercise Time: 00:02:00 Test Indications: CP,Pre-Op Evaluation Medications: SEE H&P Protocol: LEXISCAN Max HR: 111 BPM 64% of Pred: 172 BPM Max BP: 108/58 mmHG Max Work Load: 1.0 METS Pharmacological stress test with Lexiscan while pt swings her legs in chair, with reports of dizziness and nausea, with isolated PACs, with normotensive response to injection. Nondiagnostic EKG for ischemia. In recovery, pt treated with IVP Aminophylline 75 mg to reverse Lexiscan after which pt feeling back to baseline. Nuclear images pending. Test reviewed with Dr. Felton. Referred By: More Liz Electronically Signed By: Aidan Courtney
--- OUTSIDE RECORDS SUMMARY | 2025-06-12 07:37 | XMS_ITS | Encounter Summary ---
Author Organization [employer] Address [address] [facility] 7t [place] [address] Care Team Providers Care Spring Encaser Name Role Phone Mackenzie Estrada MD Primary Care Provider [phone] Ruth Ann Price Unavailable Unavailable Ruth Ann Price Unavailable Ruth Ann Price Unavailable Reason for Visit * Reason Comments Med Refill Encounter Details Date Type Department Care Team ([facility] st Contact Info) Description 02/01/2025 Refill [facility] MEDICINE [address] [place] [address] Ebony Daigle MD [address] [place], [place] [phone] Social History Tobacco Use Types Packs/Day Years [...] Description 07/09/2025 9:45 AM EST Office Visit [facility] MEDICINE [address] [place] [address] documented as of this encounter Goals Goal [...] documented as of this encounter Care Teams Spring Encaser Relationship Specialty Start Date End Date Mackenzie Estrada MD [address] [place] [address] PCP - General Family Medicine 07/10/20 Ruth Ann Price 02/19/25 02/19/25 Ruth Ann Price 02/19/25 02/28/25 Ruth Ann Price 03/29/25 04/03/25 Hemalatha Pretty Copy PreparerAir Defense Control Officer 01/02/25 documented as of this encounter
--- OUTSIDE RECORDS SUMMARY | 2025-06-12 07:37 | XMS_ITS | Clinical Summary ---
Author Organization [facility] Address [address] [place] [address] Care Team Providers Care Production Line Worker Name Role Phone Sanjay Cruz MD Primary Care Provi [facility] Surgical History Surgery Date Site/Laterality Comments OTHER SURGICAL HISTORY 05/12/2020 Right PROCEDURE: NV BX/EXC LYMPH NODE OPEN SUPERFICIAL; COMMENT: Axillary Lymph Node biopsy- Benign Lymphoid Tissue OTHER SURGICAL HISTORY 12/19/2019 Right PROCEDURE: NV BX/EXC LYMPH NODE NEEDLE SUPERFICIAL; COMMENT: Axillary Lymph node -results were non daignostic Medical History Medical History Date Comments Anxiety DX:Anxiety Migraine DX:Migraine History of DVT (deep vein thrombosis) 05/23/2020 DX:History of DVT (deep vein thrombosis); COMMENT: 01/2005 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 0 DX:termite helper current use of anticoagulant Acute deep vein thrombosis ( DVT) of brachial vein of right upper extremity ([facility] V24, [facility] V28) 05/09/2020 DX:Acute deep vein thrombos is (DVT) of brachial vein of right upper extremity (HCC) Axillary lymphadenopathy 05/09/2020 DX:Axil harvinder lymphadenopathy Gastroesophageal reflux disease 05/09/2020 DX:Gastroesophageal reflux disease Personal history of Hodgkin lymphoma 05/09/2020 DX:Personal history of Hodgkin lymphoma Recurrent major depressive d isorder in remission ([facility] V24) 05/09/2020 DX:Recurrent major depressiv e disorder in remission (HCC) Rheumatoid arthritis involvi ng multiple sites ([facility] V24, [facility] V28) 05/09/2020 DX:Rheumatoid arthritis invo lving multiple sites (HCC) Hodgkin's disease, nodular s clerosis, of lymph nodes of multiple sites ([facility] V24, [facility] V28) DX:Hodgkin's disease, nodul ar sclerosis, [...] age to complete this topic Care Teams Production Line Worker Relationship Specialty Start Date End Date Subramonia-Sanjay Espana MD [address] [place] [phone] PCP - General Internal Medicine 04/09/20
--- OUTSIDE RECORDS SUMMARY | 2025-06-12 07:37 | XMS_ITS | Encounter Summary ---
Author Organization [employer] Address [address] [facility] 7t [place] [address] Care Team Providers Care Supervisor Roller Shop Name Role Phone Mackenzie Estrada MD Primary Care Provider [phone] Casper Magaña RN Unavailable [phone] Ruth Ann Price Unavailable Unavailable Ruth Ann Price Unavailable Ruth Ann Price Unavailable Reason for Visit * Reason Comments Med Refill Encounter Details Date Type Department Care Team (Late st Contact Info) Description 10/10/2024 Refill [facility] [address] [place] [address] Mackenzie Estrada MD [address] [place] [address] 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 ([facility]) Social History Tobacco Use [...] Upcoming Encounters Date Type Department Care Team ([facility] st Contact Info) Description 07/09/2025 9:45 AM EST Office Visit [facility] [address] [place] [address] documented as of this encounter Goals Goal [...] as of this encounter Care Teams Supervisor Roller Shop Relationship Specialty Start Date End Date Mackenzie Estrada MD [address] [place] [address] PCP - General Family Medicine 07/10/20 Casper Magaña, RN [address] [place] [address] [place] [address] Registered Nurse Family Medicine 01/18/25 01/18/25 Ruth Ann Price 02/19/25 02/19/25 Ruth Ann Price 02/19/25 02/28/25 Ruth Ann Price 03/29/25 04/03/25 Hemalatha Pretty Wrapping CheckerTeachers' Aide 01/02/25 documented as of this encounter
--- OUTSIDE RECORDS SUMMARY | 2025-06-12 07:37 | XMS_ITS | Encounter Summary ---
Author Organization [employer] Address [address] [facility] [address] [place] [address] Care Team Providers Care Instrument/Control Technician Name Role Phone Mackenzie Estrada MD Primary Care Provider Encounter Details Date Type Department Care Team (Latest Contact Info) Description 06/07/2025 Travel Social History Tobacco Use Types Packs/Day [...] Description 07/09/2025 9:45 AM EST Office Visit [facility]INE [address] [place] [address] documented as of this encounter Goals Goal [...] documented as of this encounter Care Teams Instrument/Control Technician Relationship Specialty Start Date End Date Mackenzie Estrada MD [address] [place] [address] PCP - General Family Medicine 07/10/20 Hemalatha Pretty Stock GraderSeasonal Sales Associate 01/02/25 documented as of this encounter
--- OUTSIDE RECORDS SUMMARY | 2025-06-12 07:37 | XMS_ITS | Encounter Summary ---
Author Organization [employer] Address [address] [facility] 7t [place] [address] Care Team Providers Care Vender Name Role Phone Mackenzie Estrada MD Primary Care Provider [phone] Reason for Visit * Reason Comments Med Refill Encounter Details Date Type Department Care Team ([facility] Contact Info) Description 04/11/2025 Refill [facility] [address] [place] [address] Mackenzie Estrada MD [address] [place] [address] 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 [...] Description 07/09/2025 9:45 AM EST Office Visit [facility] MED[facility]INE [address] [place] [address] documented as of this encounter Goals Goal [...] documented as of this encounter Care Teams Vender Relationship Specialty Start Date End Date Mackenzie Estrada MD [address] [place] [address] PCP - General Family Medicine 07/10/20 Hemalatha Pretty Retail Product AdvisorDent Remover 01/02/25 documented as of this encounter
--- OUTSIDE RECORDS SUMMARY | 2025-06-12 07:37 | XMS_ITS | Encounter Summary ---
Author Organization [employer] Address 75 [facility] 7t [place] [address] Care Team Providers Care Plumbing Service Technician Name Role Phone Mackenzie Estrada MD Primary Care Provider [phone] Ruth Ann Price Unavailable Unavailable Ruth Ann Price Unavailable Ruth Ann Price Unavailable Reason for Visit * Reason Comments Med Refill Encounter Details Date Type Department Care Team ([facility] st Contact Info) Description 01/24/2025 Refill [facility] [address] [place] [address] Ebony Daigle MD 230 [place], [place] [phone] Rheumatoid arthritis involving multiple sites with positive rheumatoid factor ([facility]) Social History Tobacco Use Types Packs/Day [...] Description 07/09/2025 9:45 AM EST Office Visit [facility] [address] [place] [address] documented as of this encounter Goals Goal [...] documented as of this encounter Care Teams Plumbing Service Technician Relationship Specialty Start Date End Date Mackenzie Estrada MD [address] [place] [address] PCP - General Family Medicine 07/10/20 Ruth Ann Price 02/19/25 02/19/25 Ruth Ann Price 02/19/25 02/28/25 Ruth Ann Price 03/29/25 04/03/25 Hemalatha Pretty Bible TeacherPipeline Executive 01/02/25 documented as of this encounter
--- OUTSIDE RECORDS SUMMARY | 2025-06-12 07:37 | XMS_ITS | Encounter Summary ---
Author Organization [employer] Address [address] [facility] [address] 7t [place] [address] Care Team Providers Care Ice Skating Coach Name Role Phone Mackenzie Estrada MD Primary Care Provider [phone] Casper Magaña RN Unavailable [phone] Ruth Ann Price Unavailable Unavailable Ruth Ann Price Unavailable Ruth Ann Price Unavailable Reason for Visit * Reason Comments Med Refill Encounter Details Date Type Department Care Team (Late st Contact Info) Description 10/10/2024 Refill [facility] 230 [place] [address] Kat Yo MD 230 [place] [address] Rheumatoid arthritis involving right hand with positive [...] Upcoming Encounters Date Type Department Care Team ([facility] st Contact Info) Description 07/09/2025 9:45 AM EST Office Visit [facility] [address] [place] [address] documented as of this encounter Goals Goal Patient Goal Type Associated Problems Recent Progress Patient-Stated? Author Quit using tobacco (cigarettes, smokeless, etc) Tobacco Use No Corey Lin, PharmFrancia documented as of this encounter Visit Diagnoses Diagnosis 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 (CMS/HCC) ([facility]) Inflammatory arthritis Unspecified inflammatory polyarthropathy documented in this encounter Additional Health Concerns Assessment Noted Time PHQ-9 Depression Total Score: 2 04/30/20 24 10:41 AM EDT documented as of this encounter Care Teams Ice Skating Coach Relationship Specialty Start Date End Date Mackenzie Estrada MD [address] [place] [address] PCP - General Family Medicine 07/10/20 Casper Magaña, RN [address] [place] [address] [place] [address] Registered Nurse Family Medicine 01/18/25 01/18/25 Ruth Ann Price 02/19/25 02/19/25 Ruth Ann Price 02/19/25 02/28/25 Ruth Ann Price 03/29/25 04/03/25 Hemalatha Pretty Comparator OperatorWearing Apparel Assembler 01/02/25 documented as of this encounter
--- OUTSIDE RECORDS SUMMARY | 2025-06-12 07:37 | XMS_ITS | Encounter Summary ---
Author Organization [employer] Address 75 [facility] 7t [place] [address] Care Team Providers Care Industrial Engineering Name Role Phone Mackenzie Estrada MD Primary Care Provider Casper Magaña RN Unavailable [phone] Ruth Ann Price Unavailable Unavailable Ruth Ann Price Unavailable Ruth Ann Price Unavailable Reason for Visit * Reason Comments Med Refill Encounter Details Date Type Department Care Team (Late st Contact Info) Description 11/18/2023 Refill [facility] 230 [place] [address] Mackenzie Estrada MD 230 [place], [place] [phone] Pain in both hands Social History Tobacco [...] Description 07/09/2025 9:45 AM EST Office Visit [facility] [address] [place] [address] documented as of this encounter Goals Goal Patient Goal Type Associated Problems Recent Progress Patient-Stated? Author Quit using tobacco (cigarettes, smokeless, etc) Tobacco Use Corey Cornell, PharmD documented as of this encounter Visit Diagnoses Diagnosis Pain in both hands documented in this encounter Care Teams Industrial Engineering Relationship Specialty Start Date End Date Mackenzie Estrada MD 230 [place] [address] PCP - General Family Medicine 07/10/20 Casper Magaña, JENNIFER [address] [place] [address] Registered Nurse Family Medicine 01/18/25 01/18/25 Ruth Ann Price 02/19/25 02/19/25 Ruth Ann Price 02/19/25 02/28/25 Ruth Ann Price 03/29/25 04/03/25 Hemalatha Pretty Animal StickerShopfitter 01/02/25 documented as of this encounter
--- OUTSIDE RECORDS SUMMARY | 2025-06-12 07:37 | XMS_ITS | Encounter Summary ---
Author Organization [employer] Address [address] [facility] [address] 7[address] [place] [address] Care Team Providers Care Syrup Blender Name Role Phone Mackenzie Estrada MD Primary Care Provider [phone] Ruth Ann Price Unavailable Unavailable Ruth Ann Price Unavailable Ruth Ann Price Unavailable Reason for Visit * Reason Comments Med Refill Encounter Details Date Type Department Care Team ([facility] st Contact Info) Description 01/24/2025 Refill [facility] [address] [place] [address] Kat Yo MD [address] [place] [address] Rheumatoid arthritis involving right hand with positive [...] 9:45 AM EST Office Visit [facility] [address] [place] [address] documented as of this encounter Goals Goal Patient Goal Type Associated Problems Recent Progress Patient-Stated? 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 (CMS/HCC) ([facility]) Inflammatory arthritis Unspecified inflammatory polyarthropathy documented in this encounter Additional Health Concerns Assessment Noted Time PHQ-9 Depression Total Score: 2 04/30/20 24 10:41 AM EDT documented as of this encounter Care Teams Syrup Blender Relationship Specialty Start Date End Date Mackenzie Estrada MD [address] [place] [address] PCP - General Family Medicine 07/10/20 Ruth Ann Price 02/19/25 02/19/25 Ruth Ann Price 02/19/25 02/28/25 Ruth Ann Price 03/29/25 04/03/25 Hemalatha Pretty Real Estate Agent/BrokerMis Specialist 01/02/25 documented as of this encounter
--- OUTSIDE RECORDS SUMMARY | 2025-06-12 07:37 | XMS_ITS | Encounter Summary ---
Author Organization [employer] Address [address] [facility] [address] 7t [place] [address] Care Team Providers Care Collection Systems Technician Name Role Phone Mackenzie Estrada MD Primary Care Provider [phone] Casper Magaña RN Unavailable [phone] Ruth Ann Price Unavailable Unavailable Ruth Ann Price Unavailable Ruth Ann Price Unavailable Encounter Details Date Type Department Care Team (Late st Contact Info) Description 10/03/2023 Orders Only [facility] [address] [place] [address] Mackenzie Estrada MD 230 [place], [place] [phone] Bacterial vaginosis (Primary Dx) Social History Tobacco [...] is your housing situation today? I have mendoaz prince 05/15/[address] you [...] 07/09/2025 9:45 AM EST Office Visit [facility] [address] [place] [address] documented as of this encounter Goals Goal Patient Goal Type Associated Problems Recent Progress Patient-Stated? Author Quit using tobacco (cigarettes, smokeless, etc) Tobacco Use Corey Cornell, Bailey documented as of this encounter Visit Diagnoses Diagnosis Bacterial vaginosis- Primary Unspecified vaginitis and vulvovaginitis documented in this encounter Care Teams Collection Systems Technician Relationship Specialty Start Date End Date Mackenzie Estrada MD [address] [place] [address] PCP - General Family Medicine 07/10/20 Casper Magaña, JENNIFER [address] [place] [address] Registered Nurse Family Medicine 01/18/25 01/18/25 Ruth Ann Price 02/19/25 02/19/25 Ruth Ann Price 02/19/25 02/28/25 Ruth Ann Price 03/29/25 04/03/25 Hemalatha Pretty Shipyard Painter HelperBrakeshoe Repairer 01/02/25 documented as of this encounter
--- OUTSIDE RECORDS SUMMARY | 2025-06-12 07:37 | XMS_ITS | Encounter Summary ---
Author Organization [employer] Address 75 [facility] 7t [place] [address] Care Team Providers Care Automobile Insurance Claim Examiner Name Role Phone Mackenzie Estrada MD Primary Care Provider [phone] Casper Magaña RN Unavailable [phone] Ruth Ann Price Unavailable Unavailable Ruth Ann Price Unavailable Ruth Ann Price Unavailable Reason for Visit * Reason Comments Med Refill Encounter Details Date Type Department Care Team ([facility] Contact Info) Description 12/10/2022 Refill [facility] 230 [place] [address] Mackenzie Estrada MD [address] [place] [address] Pain in both hands Social History Tobacco [...] Upcoming Encounters Date Type Department Care Team ([facility] Contact Info) Description 07/09/2025 9:45 AM EST Office Visit [facility] [address] [place] [address] documented as of this encounter Visit Diagnoses Diagnosis Pain in both hands documented in this encounter Care Teams Automobile Insurance Claim Examiner Relationship Specialty Start Date End Date Mackenzie Estrada MD 230 [facility] [place] [address] PCP - General Family Medicine 07/10/20 Casper Magaña, JENNIFER [address] [place] [address] Registered Nurse Family Medicine 01/18/25 01/18/25 Ruth Ann Price 02/19/25 02/19/25 Ruth Ann Price 02/19/25 02/28/25 Ruth Ann Price 03/29/25 04/03/25 Hemalatha Pretty Sewer ContractorSports Management Professor 01/02/25 documented as of this encounter
--- OUTSIDE RECORDS SUMMARY | 2025-06-12 07:37 | XMS_ITS | Encounter Summary ---
Author Organization [employer] [address] [facility] Address 75 [facility] 7t [place] [address] Care Team Providers Care Sewage Plant Supervisor Name Role Phone Mackenzie Estrada MD Primary Care Provider [phone] Casper Magaña RN Unavailable [phone] Ruth Ann Price Unavailable Unavailable Ruth Ann Price Unavailable Ruth Ann Price Unavailable Encounter Details Date Type Department Care Team (Late Contact Info) Description 03/04/2023 Orders Only [facility] [address] [place] [address] Kat Yo MD 230 [place] [address] Social History Tobacco Use Types Packs/Day Years [...] Department Care Team (Late Contact Info) Description 07/09/2025 9:45 AM EST Office Visit [facility] [address] [place] [address] documented as of this encounter Visit Diagnoses Not on filedocumented in this encounter Care Teams Sewage Plant Supervisor Relationship Specialty Start Date End Date Mackenzie Estrada MD 230 [place] [address] PCP - General Family Medicine 07/10/20 Casper Magaña, JENNIFER [address] [place] [address] Registered Nurse Family Medicine 01/18/25 01/18/25 Ruth Ann Price 02/19/25 02/19/25 Ruth Ann Price 02/19/25 02/28/25 Ruth Ann Price 03/29/25 04/03/25 Hemalatha Pretty Tunnel Elastic Operator ChainstitchAccounts Receivable Associate 01/02/25 documented as of this encounter
--- OUTSIDE RECORDS SUMMARY | 2025-06-12 07:37 | XMS_ITS | Encounter Summary ---
Author Organization [employer] Address 75 [facility] 7t [place] [address] Care Team Providers Care Melting Furnace Skimmer Name Role Phone Mackenzie Estrada MD Primary Care Provider [phone] Casper Magaña RN Unavailable [phone] Ruth Ann Price Unavailable Unavailable Ruth Ann Price Unavailable Ruth Ann Price Unavailable Reason for Visit * Reason Comments Med Refill Encounter Details Date Type Department Care Team (Late st Contact Info) Description 08/19/2024 Refill [facility] 230 [place] [address] Mackenzie Estrada MD 230 [place] [address] Social History Tobacco Use Types Packs/Day Years [...] Description 07/09/2025 9:45 AM EST Office Visit [facility] [address] [place] [address] documented as of this encounter Goals Goal Patient Goal Type Associated Problems Recent Progress Patient-Stated? Author Quit using tobacco (cigarettes, smokeless, etc) Tobacco Use Corey Cornell, PharmD documented as of this encounter Visit Diagnoses Not on filedocumented in this encounter Additional Health Concerns Assessment Noted Time PHQ-9 Depression Total Score: 2 04/30/20 24 10:41 AM EDT documented as of this encounter Care Teams Melting Furnace Skimmer Relationship Specialty Start Date End Date Mackenzie Estrada MD 230 [place] [address] PCP - General Family Medicine 07/10/20 Casper Magaña RN [address] [place] [address] Registered Nurse Family Medicine 01/18/25 01/18/25 Ruth Ann Price 02/19/25 02/19/25 Ruth Ann Price 02/19/25 02/28/25 Ruth Ann Price 03/29/25 04/03/25 Hemalatha Pretty Inserter Promotional ItemFootwear Machinery Instructor 01/02/25 documented as of this encounter
--- OUTSIDE RECORDS SUMMARY | 2025-06-12 07:37 | XMS_ITS | Encounter Summary ---
Author Organization [employer] Address 75 [facility] 7t [place] [address] Care Team Providers Care Liner Helper Name Role Phone Mackenzie Estrada MD Primary Care Provider [phone] Casper Magaña RN Unavailable [phone] Ruth Ann Price Unavailable Unavailable Ruth Ann Price Unavailable Ruth Ann Price Unavailable Reason for Visit * Reason Comments Med Refill Encounter Details Date Type Department Care Team (Late st Contact Info) Description 02/08/2023 Refill [facility] 230 [place] [address] Mackenzie Estrada MD 230 [place] [address] Pain in both hands Social History Tobacco [...] Description 07/09/2025 9:45 AM EST Office Visit [facility] [address] [place] [address] documented as of this encounter Visit Diagnoses Diagnosis Pain in both hands documented in this encounter Care Teams Liner Helper Relationship Specialty Start Date End Date Mackenzie Estrada MD [address] [place] [address] PCP - General Family Medicine 07/10/20 Casper Magaña RN [address] [place] [address] Registered Nurse Family Medicine 01/18/25 01/18/25 Ruth Ann Price 02/19/25 02/19/25 Ruth Ann Price 02/19/25 02/28/25 Ruth Ann Price 03/29/25 04/03/25 Hemalatha Pretty Reflow OperatorOrganic Extractions Technician 01/02/25 documented as of this encounter
--- OUTSIDE RECORDS SUMMARY | 2025-06-12 07:37 | XMS_ITS | Encounter Summary ---
Author Organization [employer] Address [address] [facility] [address] 7[address] [place] [address] Care Team Providers Care Private Investigator Surveillance Name Role Phone Mackenzie Estrada MD Primary Care Provider Casper Magaña RN Unavailable [phone] Ruth Ann Price Unavailable Unavailable Ruth Ann Price Unavailable Ruth Ann Price Unavailable Encounter Details Date Type Department Care Team (Late st Contact Info) Description 12/13/2023 Orders Only [facility] [address] [place] [address] Mackenzie Estrada MD [address] [place], [place] [phone] Pain in both hands Social History Tobacco [...] Description 07/09/2025 9:45 AM EST Office Visit [facility] [address] [place] [address] documented as of this encounter Goals Goal Patient Goal Type Associated Problems Recent Progress Patient-Stated? Author Quit using tobacco (cigarettes, smokeless, etc) Tobacco Use Corey Cornell, Bailey documented as of this encounter Visit Diagnoses Diagnosis Pain in both hands documented in this encounter Care Teams Private Investigator Surveillance Relationship Specialty Start Date End Date Mackenzie Estrada MD [address] [place] [address] PCP - General Family Medicine 07/10/20 Casper Magaña, RN [address] [place] [address] Registered Nurse Family Medicine 01/18/25 01/18/25 Ruth Ann Price 02/19/25 02/19/25 Ruth Ann Price 02/19/25 02/28/25 Ruth Ann Price 03/29/25 04/03/25 Hemalatha Pretty School DirectorWildlife Refuge Specialist 01/02/25 documented as of this encounter
--- OUTSIDE RECORDS SUMMARY | 2025-06-12 07:37 | XMS_ITS | Encounter Summary ---
Author Organization [employer] Address 75 [facility] 7t [place] [address] Care Team Providers Care Vertical Boring Mill Operator Name Role Phone Mackenzie Estrada MD Primary Care Provider [phone] Reason for Visit * Reason Comments Med Refill Encounter Details Date Type Department Care Team ([facility] Contact Info) Description 04/09/2025 Refill [facility] [address] [place] [address] Sisi Kennedy FNP [address] [place] [address] Seborrheic dermatitis Social History Tobacco Use Types [...] Description 07/09/2025 9:45 AM EST Office Visit [facility] [address] [place] [address] documented as of this encounter Goals Goal [...] documented as of this encounter Care Teams Vertical Boring Mill Operator Relationship Specialty Start Date End Date Mackenzie Estrada MD 230 [place] [address] PCP - General Family Medicine 07/10/20 Hemalatha Pretty Assurance Manager InsuranceManager Medicare Marketing 01/02/25 documented as of this encounter
--- OUTSIDE RECORDS SUMMARY | 2025-06-12 07:37 | XMS_ITS | Encounter Summary ---
Author Organization [employer] Address 75 [facility] 7t [place] [address] Care Team Providers Care Dental Ceramist Name Role Phone Mackenzie Estrada MD Primary Care Provider [phone] Reason for Visit * Reason Comments Med Refill Encounter Details Date Type Department Care Team ([facility] Contact Info) Description 04/07/2025 Refill [facility] [address] [place] [address] Mackenzie Estrada MD 230 [place] [address] Social History Tobacco Use Types Packs/Day Years [...] Description 07/09/2025 9:45 AM EST Office Visit [facility] [address] [place] [address] documented as of this encounter Goals Goal Patient Goal Type Associated Problems Recent Progress Patient-Stated? Author Quit using tobacco (cigarettes, smokeless, etc) Tobacco Use No Corey Lin, PharmD documented as of this encounter Visit Diagnoses Not on filedocumented in this encounter Additional Health Concerns Assessment Noted Time PHQ-9 Depression Total Score: 6 04/03/20 11:40 AM EDT documented as of this encounter Care Teams Dental Ceramist Relationship Specialty Start Date End Date Mackenzie Estrada MD [address] [place] [address] PCP - General Family Medicine 07/10/20 Hemalatha Pretty Nursery School TeacherWell Treatment Offsider 01/02/25 documented as of this encounter
--- OUTSIDE RECORDS SUMMARY | 2025-06-12 07:37 | XMS_ITS | Encounter Summary ---
Author Organization [employer] Address 75 [facility] 7t [place] [address] Care Team Providers Care Genetic Supervisor Name Role Phone Mackenzie Estrada MD Primary Care Provider [phone] Casper Magaña RN Unavailable [phone] Ruth Ann Price Unavailable Unavailable Ruth Ann Price Unavailable Ruth Ann Price Unavailable Reason for Referral * Imaging (Routine) - Closed Specialty Diagnoses / Procedures Referred By Contac t Referred To Contact Radiology Diagnoses Abnormal ultrasound of pelvis Procedures MR Pelvis w/ and w/o Contrast Mackenzie Estrada MD [address] [place] [address] Phone: tel: fax: [address] Phone: tel: fax: Referral ID Status Reason Start Date Expiration Date Visits Re quested Visits Authorized [id number] Closed 10/31/2023 10/30/2024 1 1 Encounter Details Date Type Department Care Team (Late st Contact Info) Description 10/31/2023 Orders Only [facility] 230 [place], [place] [phone] Mackenzie Estrada MD 230 [place], [place] [phone] Abnormal ultrasound of pelvis (Primary Dx) Social [...] which I need to talk to her microeconomics professor about. Thank you! documented in this encounter Plan of Treatment Upcoming Encounters Date Type Department Care Team (Late st Contact Info) Description 07/09/2025 9:45 AM EST Office Visit [facility] [address] [place] [address] documented as of this encounter Goals Goal [...] PM EDT Narrative 12/07/2023 9:11 AM EDT [address] [address] Magnetic Resonance Report Signed Patient: Ginette Arceo MR #: [id number] : 1975 Acct:[id number] Age/Sex: 48 / F ADM Date: 11/25/23 Loc: .MRI Attending Dr: Mackenzie Estrada MD Ordering Physician: Mackenzie Estrada Date of Service: 11/25/23 Procedure(s): MR pelvis wo/w con Accession Number(s): [id number] cc: Mackenzie Estrada EXAMINATION: MR PELVIS WITHOUT [...] measures 7.8 x 3.6 x 4.3 cm (idcbjz-pr-umqzji x AP x transverse dimension). The junctional [...] in OV> 12/07/23 0907 DD/ 1505 TD/TT: [employer] Superintendent: PD Procedure Note Donotuseinterpreter, Image - 12/07/[address] [address] Magnetic Resonance Report Signed Patient: Ginette Arceo #: [id number] : 1975Acct:[id number] Age/Sex: 48 / FADM Date: 11/25/23 Loc: HO.MRI Attending Dr: Mackenzie Estrada MD Ordering Physician: Mackenzie Estrada Date of Service: 11/25/23 Procedure(s): MR pelvis wo/w con Accession Number(s): [id number] cc: Mackenzie Estrada EXAMINATION: MR PELVIS WITHOUT [...] measures 7.8 x 3.6 x 4.3 cm (kenzqc-cg-iwvuld x AP x transverse dimension). The junctional [...] in OV> 12/07/23 0907 DD/ 1505 TD/TT: Oil [employer] Superintendent: PD us Mackenzie Estrada MD IMG MRI PROCEDURES Final Resul t documented in this encounter Visit Diagnoses Diagnosis Abnormal ultrasound of pelvis- Primary documented in this encounter Care Teams Genetic Supervisor Relationship Specialty Start Date End Date Mackenzie Estrada MD [address] [place] [address] PCP - General Family Medicine 07/10/20 Casper Magaña, RN [address] [place] [address] Registered Nurse Family Medicine 01/18/25 01/18/25 Ruth Ann Price 02/19/25 02/19/25 Ruth Ann Price 02/19/25 02/28/25 Ruth Ann Price 03/29/25 04/03/25 Hemalatha Pretty Qc TechDe Alcoholizer 01/02/25 documented as of this encounter
--- OUTSIDE RECORDS SUMMARY | 2025-06-12 07:38 | XMS_ITS | Encounter Summary ---
Author Organization [employer] Address [address] [facility] 7t [place] [address] Care Team Providers Care Traffic Manager Name Role Phone Mackenzie Estrada MD Primary Care Provider Casper Magaña RN Unavailable [phone] Ruth Ann Price Unavailable Unavailable Ruth Ann Price Unavailable Ruth Ann Price Unavailable Reason for Visit * Reason Onset Date Comments Hospital Follow-up 02/24/2024 Encounter Details Date Type Department Care Team ([facility] st Contact Info) Description 02/24/2024 Telephone [facility] MEDICINE [address] [place], [place] [phone] Mackenzie Estrada MD [address] [place], [place] [phone] Hospital Follow-up Social History Tobacco Use Types [...] from pt requesting a HDF appt. Hospital: [facility] Date of admission: 02/19 Discharge date: 02/23 Diagnosed: Rectal Bleeding Nepali Speaker documented in this encounter Plan of Treatment Upcoming Encounters Date Type Department Care Team (Late st Contact Info) Description 07/09/2025 9:45 AM EST Office Visit [facility] [address] [place] [address] documented as of this encounter Goals Goal Patient Goal Type Associated Problems Recent Progress Patient-Stated? Author Quit using tobacco (cigarettes, smokeless, etc) Tobacco Use No Corey Lin, KelechiD documented as of this encounter Visit Diagnoses Not on filedocumented in this encounter Care Teams Traffic Manager Relationship Specialty Start Date End Date Mackenzie Estrada MD [address] [place] [address] PCP - General Family Medicine 07/10/20 Casper Magaña, RN [address] [place] [address] Registered Nurse Family Medicine 01/18/25 01/18/25 Ruth Ann Price 02/19/25 02/19/25 Ruth Ann Price 02/19/25 02/28/25 Ruth Ann Price 03/29/25 04/03/25 Hemalatha Pretty Rail Car UnloaderKnowledge Analyst 01/02/25 documented as of this encounter
--- OUTSIDE RECORDS SUMMARY | 2025-06-12 07:38 | XMS_ITS | Encounter Summary ---
Author Organization [employer] Address [address] [facility] [address] 7t [place] [address] Care Team Providers Care Chauffeur Airport Limousine Name Role Phone Mackenzie Estrada MD Primary Care Provider [phone] Casper Magaña RN Unavailable [phone] Ruth Ann Price Unavailable Unavailable Ruth Ann Price Unavailable Ruth Ann Price Unavailable Encounter Details Date Type Department Care Team (Late st Contact Info) Description 05/10/2024 Orders Only [facility] [address] [place] [address] Mackenzie Estrada MD [address] [place] [address] Social History Tobacco Use Types Packs/Day Years [...] 9:45 AM EST Office Visit [facility] [address] [place] [address] documented as of this encounter Goals Goal [...] documented as of this encounter Care Teams Chauffeur Airport Limousine Relationship Specialty Start Date End Date Mackenzie Estrada MD [address] [place] [address] PCP - General Family Medicine 07/10/20 Casper Magaña RN [address] [place] [address] Registered Nurse Family Medicine 01/18/25 01/18/25 Ruth Ann Price 02/19/25 02/19/25 Ruth Ann Price 02/19/25 02/28/25 Ruth Ann Price 03/29/25 04/03/25 Hemalatha Pretty Soaping Machine Back TenderTrolley Car Overhauler 01/02/25 documented as of this encounter
--- OUTSIDE RECORDS SUMMARY | 2025-06-12 07:38 | XMS_ITS | Encounter Summary ---
Author Organization [employer] Address 75 [facility] 7t [place] [address] Care Team Providers Care Supervisor Display Fabrication Name Role Phone Mackenzie Estrada MD Primary Care Provider [phone] Casper Magaña RN Unavailable [phone] Ruth Ann Price Unavailable Unavailable Ruth Ann Price Unavailable Ruth Ann Price Unavailable Reason for Visit * Reason Comments Med Refill Encounter Details Date Type Department Care Team ([facility] Contact Info) Description 09/22/2022 Refill [facility] [address] [place] [address] Sarika Palacios, RHONA [address] [place] [address] Tinea pedis of both feet Social History [...] Upcoming Encounters Date Type Department Care Team ([facility] Contact Info) Description 07/09/2025 9:45 AM EST Office Visit [facility] MEDICINE [address] [place] [address] documented as of this encounter Visit Diagnoses Diagnosis Tinea pedis of both feet documented in this encounter Care Teams Supervisor Display Fabrication Relationship Specialty Start Date End Date Mackenzie Estrada MD [address] [place] [address] PCP - General Family Medicine 07/10/20 Casper Magaña, JENNIFER [address] [place] [address] Registered Nurse Family Medicine 01/18/25 01/18/25 Ruth Ann Price 02/19/25 02/19/25 Ruth Ann Price 02/19/25 02/28/25 Ruth Ann Price 03/29/25 04/03/25 Hemalatha Pretty Harness CutterLearning Technologies Specialist 01/02/25 documented as of this encounter
--- OUTSIDE RECORDS SUMMARY | 2025-06-12 07:38 | XMS_ITS | Encounter Summary ---
Author Organization [employer] Address 75 [facility] 7t [place] [address] Care Team Providers Care Hog Scraper Name Role Phone Mackenzie Estrada MD Primary Care Provider [phone] Casper Magaña RN Unavailable [phone] Ruth Ann Price Unavailable Unavailable Ruth Ann Price Unavailable Ruth Ann Price Unavailable Reason for Visit * Reason Comments Med Refill Encounter Details Date Type Department Care Team (Late st Contact Info) Description 06/01/2023 Refill [facility] MED[facility]INE [address] [place] [address] Mackenzie Estrada MD [address] [place], [place] [phone] Pain in both hands Social History Tobacco [...] Description 07/09/2025 9:45 AM EST Office Visit [facility] MED[facility]INE [address] [place] [address] documented as of this encounter Goals Goal Patient Goal Type Associated Problems Recent Progress Patient-Stated? Author Quit using tobacco (cigarettes, smokeless, etc) Tobacco Use Corey Cornell, PharmD documented as of this encounter Visit Diagnoses Diagnosis Pain in both hands documented in this encounter Care Teams Hog Scraper Relationship Specialty Start Date End Date Mackenzie Estrada MD [address] [place] [address] PCP - General Family Medicine 07/10/20 Casper Magaña, JENNIFER [address] [place] [address] Registered Nurse Family Medicine 01/18/25 01/18/25 Ruth Ann Price 02/19/25 02/19/25 Ruth Ann Price 02/19/25 02/28/25 Ruth Ann Price 03/29/25 04/03/25 Hemalatha Pretty Video Game MakerRegulatory Affairs Portfolio Leader 01/02/25 documented as of this encounter
--- OUTSIDE RECORDS SUMMARY | 2025-06-12 07:38 | XMS_ITS | Encounter Summary ---
Author Organization [employer] Address 75 [facility] 7t [place] [address] Care Team Providers Care Channel Machine Operator Name Role Phone Mackenzie Estrada MD Primary Care Provider [phone] Casper Magaña RN Unavailable [phone] Ruth Ann Price Unavailable Unavailable Ruth Ann Price Unavailable Ruth Ann Price Unavailable Reason for Visit * Reason Comments Med Refill Encounter Details Date Type Department Care Team (Late st Contact Info) Description 07/27/2023 Refill [facility] [address] [place] [address] Name, MD Mark [address] [place] [address] Pain in both hands Social History Tobacco [...] [facility] [address] [place] [address] documented as of this encounter Goals Goal Patient Goal Type Associated Problems Recent Progress Patient-Stated? Author Quit using tobacco (cigarettes, smokeless, etc) Tobacco Use Corey Cornell, KelechiD documented as of this encounter Visit Diagnoses Diagnosis Pain in both hands documented in this encounter Care Teams Channel Machine Operator Relationship Specialty Start Date End Date Mackenzie Estrada MD [address] [place] [address] PCP - General Family Medicine 07/10/20 Casper Magaña, JENNIFER [address] [place] [address] Registered Nurse Family Medicine 01/18/25 01/18/25 Ruth Ann Price 02/19/25 02/19/25 Ruth Ann Price 02/19/25 02/28/25 Ruth Ann Price 03/29/25 04/03/25 Hemalatha Pretty Buzzsaw OperatorCad Operator 01/02/25 documented as of this encounter
--- OUTSIDE RECORDS SUMMARY | 2025-06-12 07:38 | XMS_ITS | Encounter Summary ---
Author Organization [employer] Address [address] [facility] [address] 7t [place] [address] Care Team Providers Care Citrix Consultant Name Role Phone Mackenzie Estrada MD Primary Care Provider [phone] Casper Magaña RN Unavailable [phone] Ruth Ann Price Unavailable Unavailable Ruth Ann Price Unavailable Ruth Ann Price Unavailable Encounter Details Date Type Department Care Team (Late st Contact Info) Description 06/03/2023 Orders Only [facility] MEDICINE [address] [place] [address] Mackenzie Estrada MD [address] [place], [place] [phone] Pain in both hands Social History Tobacco [...] Description 07/09/2025 9:45 AM EST Office Visit [facility] MED[facility] [address] [place] [address] documented as of this encounter Goals Goal [...] PM EST Narrative 06/03/2023 5:47 PM EDT [address] [address] XRay Report Signed Patient: Ginette Arceo MR #: [id number] : 1975 Acct:[id number] Age/Sex: 47 / F ADM Date: 06/25/23 Loc: HO.ED Attending Dr: Ordering Physician: Treasure Clemons Date of Service: 06/25/23 Procedure(s): XR chest 2V Accession Number(s): [id number] cc: Mackenzie Estrada; Treasure Clemons EXAMINATION: XR [...] in OV> 06/25/23 1230 DD/ 1215 TD/TT: Quenching Machine Operator: [facility] Procedure Note Donotuseinterpreter, Image - 06/25/[address] [address] XRay Report Signed Patient: Ginette ArceoMR #: [id number] : 1975Acct:[id number] Age/Sex: 47 / FADM Date: 06/25/23 Loc: HO.ED Attending Dr: Ordering Physician: Treasure Clemons Date of Service: 06/25/23 Procedure(s): XR chest 2V Accession Number(s): [id number] cc: Mackenzie Estrada; Treasure Clemons EXAMINATION: XR [...] in OV> 06/25/23 1230 DD/ 1215 TD/TT: Quenching Machine Operator: MAGGIE [facility] External Provider IMG XR PROCEDURES Edited Result - Final * (ABNORMAL) Urinalysis, Complete, with Reflex to Culture (06/03/2023 4:49 PM EDT) Color Urine Yellow [facility] Appearance Urine Clear [facility] PH 5.5 5.0 - 9.0 [facility] Glucose Urine UA Negative Negative mg/dL [facility] Urine Blood Large (3+)(A) Negative [facility] Specific [place] - Urine 1.025 1.005 - 1.025 [facility] Urine Protein Negative Neg-Trace mg/dL [facility] Urine Ketones Negative Negative mg/dL [facility] Nitrite Urine Negative Negative [facility] Leukocyte Esterase Urine Negative Negative [facility] RBC Urine >20(A) 0 - 2 /HPF [facility] Urine WBC 0-5 0 - 5 /HPF [facility] Urine Squamous Epithelial Cell 11-20 0 - 2 /HPF [facility] Urine Bacteria 1+ None Seen [facility] Hyaline Casts, Urine 0-2 0 - 2 /LPF [facility] 06/03/2023 4:49 PM EDT 06/03/2023 4:52 PM EDT Narrative [facility] - 06/03/2023 5:00 PM EDT Urine, Clean Catch Generic External Data Provider LAB URINE ORDERAB LES Final Result [facility] [address] [place] [phone] * (ABNORMAL) Urinalysis w/reflex microscopic (06/03/2023 4:49 PM EDT) Color Urine Yellow [facility] Appearance Urine Clear [facility] PH 5.5 5.0 - 9.0 [facility] Glucose Urine UA Negative Negative mg/dL [facility] Urine Blood Large (3+)(A) Negative [facility] Specific [place] - Urine 1.025 1.005 - 1.025 [facility] Urine Protein Negative Neg-Trace mg/dL [facility] Urine Ketones Negative Negative mg/dL [facility] Nitrite Urine Negative Negative [facility] Leukocyte Esterase Urine Negative Negative [facility] 06/03/2023 4:49 PM EDT 06/03/2023 4:52 PM EDT Narrative [facility] - 06/03/2023 4:57 PM EDT Urine, Clean Catch us Generic External Data Provider LAB URINE ORDERAB LES Final Result [facility] [address] [place] [address] [phone] * Influenza A B2 ID NOW (Corona) (06/03/2023 4:34 PM EDT) IDNOW SERIAL# [id number] [facility] Influenza A Negative Negative [facility] Influenza B2 Negative Negative [facility] Influenza A B2 Note See Note [facility] Comment:The Corona ID NOW In [...] GENERAL ORDERABLES Final Result Performing Organization Address City/[facility]/ZIP Co de Phone Number [facility] [address] [place] [address] [phone] * COVID-19 ID NOW (CORONA) (06/03/2023 4:34 PM EDT) IDNOW SERIAL# [id number] [facility] COVID-19 TEST Negative Negative [facility] COVID-19 NOTE See Note [facility] Comment: Results are for the identification of SARS-CoV2 RNA. TheSARS-CoV2 RNA is generally detectable in respiratory samplesduring the acute phase of infection. Positive results areindicative of the presence of SARS-CoV-2 RNA; clinicalcorrelation with patient history and other diagnosticinformation is necessary to determine patient infectionstatus. Positive results do not rule out bacterial infectionor co- infection with other viruses.Testing facilities within the [facility] and [facility] are required to report all [...] LAB MOLECULAR ARNAV GNOSTICS ORDERABLES Final Result [facility] [address] [place] [address] [phone] documented in this encounter Visit Diagnoses Diagnosis Pain in both hands documented in this encounter Care Teams Citrix Consultant Relationship Specialty Start Date End Date Mackenzie Estrada MD [address] [place] [address] PCP - General Family Medicine 07/10/20 Casper Magaña, JENNIFER [address] [place] [address] Registered Nurse Family Medicine 01/18/25 01/18/25 Ruth Ann Price 02/19/25 02/19/25 Ruth Ann Price 02/19/25 02/28/25 Ruth Ann Price 03/29/25 04/03/25 Hemalatha Pretty [facility] ManagerSpecial Education Secretary 01/02/25 documented as of this encounter
--- OUTSIDE RECORDS SUMMARY | 2025-06-12 07:38 | XMS_ITS | Encounter Summary ---
Author Organization [employer] Address [address] [facility] 7t [place] [address] Care Team Providers Care Analytical Tech Name Role Phone Mackenzie Estrada MD Primary Care Provider [phone] Casper Magaña RN Unavailable [phone] Ruth Ann Price Unavailable Unavailable Ruth Ann Price Unavailable Ruth Ann Price Unavailable Reason for Visit * Reason Onset Date Comments Appointment Request 08/16/2023 Encounter Details Date Type Department Care Team ([facility] st Contact Info) Description 08/16/2023 Telephone [facility] MEDICINE [address] [place], [place] [phone] Mackenzie Estrada MD [address] [place], [place] [phone] Appointment Request Social History Tobacco Use Types [...] be seen today. Please contact pt @ [phone] English Speaker documented in this encounter Plan of Treatment Upcoming Encounters Date Type Department Care Team (Late st Contact Info) Description 07/09/2025 9:45 AM EST Office Visit [facility] MEDICINE [address] [place] [address] documented as of this encounter Goals Goal Patient Goal Type Associated Problems Recent Progress Patient-Stated? Author Quit using tobacco (cigarettes, smokeless, etc) Tobacco Use No Corey Lin, PharmD documented as of this encounter Visit Diagnoses Not on filedocumented in this encounter Care Teams Analytical Tech Relationship Specialty Start Date End Date Mackenzie Estrada MD [address] [place] [address] PCP - General Family Medicine 07/10/20 Casper Magaña, RN [address] [place] [address] Registered Nurse Family Medicine 01/18/25 01/18/25 Ruth Ann Price 02/19/25 02/19/25 Ruth Ann Price 02/19/25 02/28/25 Ruth Ann Price 03/29/25 04/03/25 Hemalatha Pretty Income Tax AdministratorPattern Clerk 01/02/25 documented as of this encounter
--- OUTSIDE RECORDS SUMMARY | 2025-06-12 07:38 | XMS_ITS | Encounter Summary ---
Author Organization [facility] Address [address] [facility] 7t [place] [address] Care Team Providers Care Cnc Operator Programmer Name Role Phone Mackenzie Estrada MD Primary Care Provider [phone] Casper Magaña RN Unavailable [phone] Ruth Ann Price Unavailable Unavailable Ruth Ann Price Unavailable Ruth Ann Price Unavailable Reason for Visit * Reason Comments Med Refill Encounter Details Date Type Department Care Team ([facility] Contact Info) Description 08/25/2022 Refill [facility] MEDICINE [address] [place] [address] Mackenzie Estrada MD [address] [place] [address] Pain in both hands Social History Tobacco [...] Upcoming Encounters Date Type Department Care Team ([facility] Contact Info) Description 07/09/2025 9:45 AM EST Office Visit [facility] MEDICINE [address] [place] [address] documented as of this encounter Visit Diagnoses Diagnosis Pain in both hands documented in this encounter Care Teams Cnc Operator Programmer Relationship Specialty Start Date End Date Mackenzie Estrada MD [address] [place] [address] PCP - General Family Medicine 07/10/20 Casper Magaña, JENNIFER [address] [place] [address] Registered Nurse Family Medicine 01/18/25 01/18/25 Ruth Ann Price 02/19/25 02/19/25 Ruth Ann Price 02/19/25 02/28/25 Ruth Ann Price 03/29/25 04/03/25 Hemalatha Pretty Verification SpecialistCorrectional Guard 01/02/25 documented as of this encounter
--- OUTSIDE RECORDS SUMMARY | 2025-06-12 07:38 | XMS_ITS | Clinical Summary ---
Author Organization [facility] Address [address] [place] [address] Support Name Relationship Address Phone Brayden Hernandez Emergency Contact [address] [place] [address] Care Team Providers Care Truck And Transport Mechanic Name Role Phone Abdullahi Lizarraga MD Primary Care Provider [phone] Allergies Active Allergy Reactions Criticality Noted Date [...] age to complete this topic Care Teams Truck And Transport Mechanic Relationship Specialty Start Date End Date Abdullahi Lizarraga MD [address] [place] [address] PCP - General Nephrology 03/10/18
--- OUTSIDE RECORDS SUMMARY | 2025-06-12 07:38 | XMS_ITS | Encounter Summary ---
Author Organization [employer] Address [address] [facility] 7t [place] [address] Care Team Providers Care Regulatory Specialist Name Role Phone Mackenzie Estrada MD Primary Care Provider [phone] Casper Magaña RN Unavailable [phone] Ruth Ann Price Unavailable Unavailable Ruth Ann Price Unavailable Ruth Ann Price Unavailable Reason for Visit * Reason Comments Med Refill Encounter Details Date Type Department Care Team (Late st Contact Info) Description 01/12/2024 Refill [facility] MEDICINE [address] [place] [address] Mackenzie Estrada MD [address] [place] [address] Rheumatoid arthritis involving multiple sites with positive rheumatoid factor ([facility]) Social History Tobacco Use Types Packs/Day [...] Description 07/09/2025 9:45 AM EST Office Visit [facility] MEDICINE [address] [place] [address] documented as of this encounter Goals Goal Patient Goal Type Associated Problems Recent Progress Patient-Stated? Author Quit using tobacco (cigarettes, smokeless, etc) Tobacco Use No Corey Lin, Bailey documented as of this encounter Visit Diagnoses Diagnosis Rheumatoid arthritis involving multiple sites with positive rheumatoid factor (CMS/HCC) (HCC) documented in this encounter Care Teams Regulatory Specialist Relationship Specialty Start Date End Date Mackenzie Estrada MD [address] [place] [address] PCP - General Family Medicine 07/10/20 Casper Magaañ, RN [address] [place] [address] Registered Nurse Family Medicine 01/18/25 01/18/25 Ruth Ann Price 02/19/25 02/19/25 Ruth Ann Price 02/19/25 02/28/25 Ruth Ann Price 03/29/25 04/03/25 Hemalatha Pretty Lining LayerHat Ironer 01/02/25 documented as of this encounter
--- OUTSIDE RECORDS SUMMARY | 2025-06-12 07:38 | XMS_ITS | Encounter Summary ---
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
--- OUTSIDE RECORDS SUMMARY | 2025-06-12 07:38 | XMS_ITS | Clinical Summary ---
Author Organization [employer] Address [address] [facility] [address] [place] [address] Care Team Providers Care Sociology Teacher Name Role Phone Mackenzie Estrada MD Primary Care Provider [phone] Allergies Active Allergy Reactions Criticality Noted Date Comments [place] (Diagnostic) 05/23/2020 [place] Oil Anaphylaxis High 07/19/2022 Morphine 06/02/2015 Other reaction(s): Unknown Wound Dressing Adhesive 04/04/2020 Tramadol 09/12/2020 Other reaction(s): Vomiting Medications * This document contains information received from the source organization and may not represent a complete record from that organization. benztropine (Cogentin) 0.5 MG tablet Take 0.5 mg by mouth in the morning. Active risperiDONE (RisperDAL) 1 MG tablet take [...] if needed at bedtime. 07/01/20 22 Active Sharps Container (GUARDIAN Sharps Monitor Worker) misc 06/15/20 22 Active Vitamin D High Potency 25 MCG (1000 UT) capsule Take 25 mcg by mouth in the morning. 12/11/19 23 Active beta carotene (vitamin A) 3 MG (32978 UT) capsule Take by mouth in the [...] MG tabletIndicati ons:NSTEMI (non-ST elevated myocardial infarction) ([facility]) Take 1 tablet (75 mg) by mouth Once per day. 90 tablet 3 09/28/19 25 026 Active Diclofenac Sodium 1 % gelIndications :Chronic low back pain, unspecified back pain laterality, unspecified whether sciatica present apply 2 gram by topical route 4 times every day as needed for hand pain 50 g 2 11/07/19 25 Active ketoconazole (NIZOral) 2 % shampooIndicat [...] MORNING AND IN THE EVENING 60 tablet 03/13/20 25 Active acetaminophen (Tylenol) 500 MG [...] AFTER USING 30 each 05/14/20 25 Active Eliquis 5 MG tablet TAKE 1 TABLET BY MOUTH TWICE DAILY IN THE MORNING AND IN THE EVENING 60 tablet 3 06/05/20 25 Active oxyCODONE-acet aminophen (Percocet) 7.5-325 MG tabletIndicati ons:Osteonecro sis of hip with collapse of femoral head present on x-ray ([facility]),Rheumato id arthritis involving multiple sites with positive rheumatoid factor (CMS/HCC) ([facility]),Chronic low back pain, unspecified back pain laterality, unspecified whether sciatica present,Long-t erm current use of opiate analgesic Take 1 tablet by mouth every 6 (six) hours if needed for severe pain for up to 28 days. 112 tablet 06/07/20 25 025 Active sulfamethoxazo le-trimethopri m (Bactrim DS) 800-160 MG tabletIndicati ons:Soft tissue lesion of elbow region Take 1 tablet by mouth 2 times daily for 7 days. 14 tablet 06/07/20 25 025 Active ezetimibe (Zetia) 10 MG tabletIndicati ons:NSTEMI (non-ST elevated myocardial infarction) ([facility]) Take 10 mg by mouth in the morning. 06/06/20 25 Active folic acid (Folvite) 1 MG tabletIndicati ons:Rheumatoid arthritis involving multiple sites with positive rheumatoid factor (CMS/HCC) ([facility]) Take 1 tablet (1,000 mcg) by mouth in the morning. 90 tablet 3 06/11/20 Active folic acid (Folvite) 1 MG tablet Take 1,000 mcg by mouth in the morning. 04/28/20 025 Discontinued(Re order (will not trigger notification to Pharmacy)) pantoprazole (ProtoNix) 40 MG EC tablet Take 40 mg by mouth in the morning. 05/26/20 22 025 Discontinued(Th erapy completed) Umeclidinium [place] (Incruse Ellipta) 62.5 MCG/ACT aerosol powderIndicati ons:Subacute cough INHALE 1 PUFF BY MOUTH EVERY DAY AT THE SAME TIME 1 each 04/23/20 24 025 Discontinued sertraline (Zoloft) 50 MG tablet Take 1 tablet (50 mg) by mouth Once per day. 90 tablet 3 07/03/20 24 025 Discontinued(Th erapy completed) cyclobenzaprin e (Flexeril) 10 MG tablet Take 1 tablet (10 mg) by mouth if needed in the morning and at bedtime for muscle spasms for up to 10 days. 20 tablet 01/25/20 25 025 Discontinued(Th erapy completed) Eliquis 5 MG tablet TAKE 1 TABLET BY MOUTH TWICE DAILY IN THE MORNING AND IN THE EVENING 60 tablet 3 02/16/20 25 025 Discontinued oxyCODONE-acet aminophen (Percocet) 7.5-325 MG tabletIndicati ons:Osteonecro sis of hip with collapse of femoral head present on x-ray (HCC) Take 1 tablet by mouth every 6 (six) hours if needed for severe pain for up to 28 days. Do not start before April 18, 2025. 112 tablet 04/18/20 25 025 Discontinued(Re order (will not trigger notification to Pharmacy)) oxyCODONE-acet aminophen (Percocet) 7.5-325 MG tabletIndicati ons:Osteonecro sis of hip with collapse of femoral head present on x-ray (HCC) Take 1 tablet by mouth every 6 (six) hours if needed for severe pain for up to 28 days. Do not start before May 16, 2025. 112 tablet 05/16/20 25 025 Discontinued(Re order (will not trigger notification to Pharmacy)) predniSONE (Deltasone) 20 MG tablet Take 1 tablet by mouth Once per day. 03/15/20 025 Discontinued(Th erapy completed) predniSONE (Deltasone) 5 MG tablet TAKE 3 TABLETS BY MOUTH ONCE DAILY TIME 4 WEEKS, 2 TABLETS ONCE DAILY TIME 4 WEEKS, THEN 1 TABLET ONCE DAILY TIME 4 WEEKS THEN STOP 04/17/20 025 Discontinued(Th erapy completed) carbamide peroxide (Debrox) 6.5 % otic solutionIndica tions:Bilatera l impacted cerumen Administer 5-10 drops into affected ear(s) 2 times daily for 4 days. 30 mL 06/07/20 025 Hospital, Clinic, or Other Facility Administered Medication Ordered Dose Route Frequency Start Date End Date Status nitroglycerin (Nitrostat) SL tablet 0.4 mgIndications:Ches t pain, unspecified type 0.4 mg SL Every 5 min PRN 05/14/2025 06/11/20 2 5 Discontinued aspirin chewable tablet 324 mgIndications:Ches t pain, unspecified type 324 mg PO Once 05/14/2025 5 Ended Active Problems Problem Noted Date Diagnosed [...] antibiotics. Patient should continue RA treatment with director operations broadcast, avoid trauma to elbows. Cervical paraspinal muscle spasm 01/24/2025 Long-term current use of opiate analgesic 2024 Overview (05/14/2025): Medication: Percocet 7.5/325mg Q6H PRN Indication: Rheumatoid arthritis Last BANKRUPTCY LAW SPECIALIST Agreement: 05/14/25 Tier: II (Q3 months visits), [...] 8:21 AM EST): Has Narcan at home BANKRUPTCY LAW SPECIALIST agreement UTD Seeing group pain visits for BANKRUPTCY LAW SPECIALIST Assessment & Plan (09/11/2024 5:03 PM EST): [...] ng right hand with positive rheumatoid factor ([facility]) 01/26/2024 Overview (08/14/2024): - Following with [facility] Rheum: Dr. Castro Assessment & Plan (01/26/2024 [...] to go back to her previous dose, BANKRUPTCY LAW SPECIALIST nurse informed about my plan, I instructed [...] pt f w Dr. Corley, rheum at [facility] - Actemra infusions ( Tocilizumab) 8mg/kg every 4 weeks - methotrexate 25mg every week - Folic acid 1 mg every day -percocet 7.5/325 1 tab Q6 h -I called today her Java Programmer Analyst # [phone] --got apt and requested transportation to [facility] RN -apt w director operations broadcast in 2 days this Tuesday03/08/2025 at 1 h 40 at [address] [facility] 140 -start prednisone 20 mg daily [...] MS/HCC) 06/03/2017 Overview (03/12/2025): - Following with [facility] Rheumatology: Dr. Corley Assessment & Plan (05/14/2025 [...] PM EDT): Primarily managed by Rheum at [facility] Continue to take Oulimiant 2mg, Methotrexate 20mg [...] not as effective -I spoke today with [facility] staff today ( Shahla) and confirmed they do have remdesivir which will be the best options for tx for this pt , ER at [facility] are expecting pt for evaluation. [...] and handed this note Rheumatoid arthritis flare ([facility]) 01/18/2023 12/31/2024 Assessment & Plan (11/23/2024 4:25 [...] week as per Rheumatology. Rx sent to [facility] and they will continue refill [...] organization. Date Type Department Care Team Description 06/07/2025 3:45 PM EST Office Visit [facility] [address] [place] [phone] Mackenzie Estrada MD Bilateral impacted cerumen (Primary Dx); 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 (HCC); Rheumatoid arthritis involving multiple sites with positive rheumatoid factor (CMS/HCC) (HCC); Soft tissue lesion of elbow region; Chronic low back pain, unspecified back pain laterality, unspecified whether sciatica present; Tobacco dependence; Class 1 obesity with serious comorbidity and body mass index (BMI) of 33.0 to 33.9 in adult, unspecified obesity type; 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; Personal history of Hodgkin lymphoma; NSTEMI (non-ST elevated myocardial infarction) (HCC); Long-term current use of opiate analgesic 06/07/2025 Travel 06/04/2025 Refill [facility] [address] [place] [phone] Mackenzie Estrada MD 05/17/[address] [address] Mackenzie Estrada MD notes 05/17/[address] [address] Mackenzie Estrada MD Preop notes; Call Back Request 05/16/2025 10:30 AM EDT Office Visit [address] [address] Aura Vu NP Pre-op examination (Primary Dx) 05/16/2025 Orders Only GENERIC EXTERNAL DATA DEPARTMENT Provider, Generic External Data 05/16/2025 Travel 05/14/2025 1:00 PM EDT Office Visit [facility] [address] [place] [phone] Raoul Hills MD Precordial pain (Primary Dx); Chest pain, unspecified type 05/14/2025 9:45 AM EDT Office Visit [address] [address] Sisi Kennedy, FARHEEN Rheumatoid arthritis involving multiple sites with positive rheumatoid factor ([facility]) ([facility]) (Primary Dx); Long-term current use of opiate analgesic; NSTEMI (non-ST elevated myocardial infarction) (HCC) 05/14/[address] [address] Mackenzie Estrada MD Chartprep 05/14/[address] [address] Kaylene Samano RN 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 ([facility]) 05/14/2025 Travel 05/14/2025 Refill [facility] [address] [place] [phone] Mackenzie Estrada MD Subacute cough 05/09/2025 Telephone [facility] [address] [place] [phone] Mackenzie Estrada MD Pre-op Exam 04/17/[address] [address] Mackenzie Estrada MD Med Refill 04/16/[address] [address] Mackenzie Estrada MD 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 ([facility]) 04/15/2025 Refill [facility] [address] [place] [phone] Mackenzie Estrada MD 04/12/[address] [phone] Mackenzie Estrada MD 04/11/[address] [address] Mackenzie Estrada MD 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 ([facility]) 04/09/2025 10:40 AM EDT Office Visit [facility] [address] [place] [phone] David Jensen MD Nodule of skin of both upper extremities (Primary Dx) 04/09/2025 Orders Only [facility] [address] [place] [phone] David Jensen MD 04/09/[address] [address] Sisi Kennedy, AUTOMOTIVE REPAIR TECHNICIAN Seborrheic dermatitis 04/09/2025 Travel 04/09/[address] [address] Mackenzie Estrada MD Nurse Triage 04/07/2025 Refill [facility] [address] [place] [phone] Mackenzie Estrada MD 04/05/2025 Results Follow-Up [facility] [address] [place] [address] Sisi Kennedy FNP CBC auto differential 04/04/2025 Results Follow-Up [address] [address] Marychuy Bonilla ANP XR Elbow 3+ Views Left 04/04/2025 Orders Only GENERIC EXTERNAL DATA DEPARTMENT Provider, Generic External Data 04/03/2025 11:15 AM EDT Office Visit [address] [address] Sisi Kennedy FNP Nodule of skin of both upper extremities (Primary Dx) 04/03/2025 Patient Outreach [facility] [address] [place] [address] Mackenzie Estrada MD Care Coordination (Communication to patient assigned CP Coordinator ) 04/03/2025 Travel 04/02/[address] [address] Sisi Kennedy FNP CHART PREP 03/29/2025 Patient Outreach [facility] [address] [place] [address] Mackenzie Estrada MD Care Coordination ([facility] ED Follow Up) 03/29/2025 Patient Outreach [facility] [address] [place] [address] Mackenzie Estrada MD Care Coordination (CP Care Coordination Chart Review) 03/29/2025 Patient Outreach [facility] [address] [place] [phone] Mackenzie Estrada MD 03/18/2025 Refill [facility] [address] [place] [phone] Livia Amos MD 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 ([facility]) 03/14/2025 Refill [facility] [address] [place] [phone] Livia Amos MD 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 ([facility]) 03/13/2025 Refill [facility] [address] [place] [phone] Mackenzie Estrada MD 03/12/2025 9:45 AM EDT Office Visit [facility] [address] [place] [address] Sisi Kennedy FNP Rheumatoid arthritis involving multiple sites with positive rheumatoid factor (CMS/HCC) (Primary Dx); Long-term current use of opiate analgesic; Seborrheic dermatitis 03/12/2025 Travel from Last 3 Months Immunizations Immunization [...] Mass Index 36.4 06/07/2025 3:28 PM EST Plan of Treatment Upcoming Encounters Date Type Department Care Team (Late st Contact Info) Description 07/09/2025 9:45 AM EST Office Visit [facility] [address], [place] [phone] Health Maintenance Due Date Last Done Comments CT Colonography 1975 Dental Prophylaxis 1975 FIT DNA/Cologuard 1975 FIT 1975 FOBT 1975 Sigmoidoscopy 1975 Zoster Vaccines (1 of 2) 1995 Dental Oral Exam 07/30/2021 01/27/2021 Dental X-Ray: Full Mouth 01/29/2024 01/27/2021 Dental X-Ray: Bitewings 01/20/2025 01/20/20, 01/27/2021, 04/19/2016 COVID-19 Vaccine ( season) 2025 07/23/2021, 12/10/2020, 11/12/2020 Influenza Vaccine (#1) 2025 , 05/13/2021, 07/05/2018, Additional history exists SDOH Screening 09/10/2025 09/10/2024 Family Planning (PISQ) 09/28/2025 09/28/2024 Alcohol/Substance Use Screening 12/28/2025 12/28/2024 Disability Screening 12/28/2025 12/28/2024 Depression Screening 04/03/2026 04/03/2025, 04/03/20 25 Tobacco Screening 06/07/2026 06/07/2025 DTaP/Tdap/Td Vaccines (2 - Td or Tdap) 04/19/2027 04/19/2017 Mammogram 05/15/2027 05/15/2025, 09/29, 11/24/2018 Colonoscopy 10/29/2027 10/28/2017 Colorectal Cancer Screening 10/29/2027 Cervical Cancer Screening 09/28/2028 HPV/Cotest 09/28/2028 09/29/2023, 11/22/2018 Pap Smear 09/28/2028 09/29/2023 Lipid Panel 05/16/2030 05/16/2025, 09/14/2021 RSV Patients and Patients Aged 60 years [...] EDT Precordial pain Chest pain, unspecified type BI MAMMOGRAM SCREENING TOMOSYNTHESIS BILATERAL Routine 05/15/2025 10:22 AM EDT Screening mammogram, encounter for POCT GALLO-14 URINE DRUG SCREEN Routine 05/14/2025 [...] (CMS/HCC) Long-term current use of opiate analgesic HEPATITIS [...] PAP SMEAR Routine 09/29/2023 12:26 PM EST INTRAORAL - COMPLETE SERIES OF RADIOGRAPHIC IMAGES Routine 01/27/2021 12:00 AM EDT COMPREHENSIVE ORAL EVALUATION - NEW OR ESTABLISHED PATIENT Routine 01/27/2021 12:00 AM EDT HM COLONOSCOPY Routine 10/28/2017 from Last 3 Months or Most Recently Relevant to Health Maintenance Results * CBC auto differential (05/16/2025 1:03 PM EDT) Only the most recent of4 resultswithin the time period is included. White Blood Count 6.1 4.8 - 10.8 X10*3/uL [facility] Red Blood Count 4.26 4.20 - 5.50 X10*6/uL [facility] Hemoglobin 13.0 12.0 - 16.0 g/dl [facility] Hematocrit 40.2 37.0 - 47.0 % [facility] Mean Corpuscular Volume 94.4 80.0 - 98.0 fL [facility] Mean Corpuscular Hemoglobin 30.5 27.0 - 33.0 pg [facility] Mean Corpuscular HGB Conc 32.3 31.0 - 35.0 g/dl [facility] Red Cell Distribution Width 14.6 11.0 - 16.0 % [facility] Platelet Count 227 160 - 400 X10*3/uL [facility] Mean Platelet Volume 10.3 9.4 - 12.3 fL [facility] Neutrophils Percent Auto 56.1 45 - 73 % [facility] Imm Gran Pct Auto 0.2 0.0 - 0.4 % [facility] Lymphocytes Percent Auto 36.4 20 - 40 % [facility] Monocytes Percent Auto 5.9 2 - 11 % [facility] Eosinophils Percent Auto 1.1 0 - 4 % [facility] Basophils Percent Auto 0.3 0 - 2 % [facility] NRBC Pct Auto 0.0 0.0 - 0.2 /100WBC [facility] Neutrophils Absolute Auto 3.4 2.0 - 8.3 x10*3/uL [facility] Imm Gran Abs Auto 0.01 0.00 - 0.03 X10*3/uL [facility] Lymphocytes Absolute Auto 2.2 1.2 - 4.9 X10*3/uL [facility] Monocytes Absolute Auto 0.4 0.1 - 1.2 X10*3/uL [facility] Eosinophils Absolute Auto 0.1 0.0 - 0.4 X10*3/uL [facility] Basophils Absolute Auto 0.0 0.0 - 0.2 X10*3/uL [facility] NRBC Abs Auto 0.000 0.0 - 0.012 X10*3/uL [facility] Blood Venous blood specimen / Unknown 05/16/2025 1:03 PM EDT 05/16/2025 1:11 PM EDT [facility] LAB BLOOD ORDERABLES Final Resu lt Performing Organization Address City/[facility]/ZIP Co de Phone Number [facility] [address] [place] [phone] * Partial Thromboplastin Time, Activated (APTT) (05/16/2025 12:03 PM EDT) Partial Thromboplastin Time 31.1 26.7 - 34.1 SEC [facility] Blood Venous blood specimen / Unknown 05/16/2025 12:03 PM EDT 05/16/2025 1:11 PM EDT [facility] LAB BLOOD ORDERABLES Final Resu lt [facility] [address] [place] [phone] [phone] * (ABNORMAL) Prothrombin Time-INR (05/16/2025 12:03 PM EDT) Prothrombin Time 13.0(H) 10.9 - 12.4 SEC [facility] INTERNATIONAL NORM RATIO 1.1 0.9 - 1.1 [facility] Comment:INTERNATIONAL NORMAL IZED RATIO (INR) [...] 12:03 PM EDT 05/16/2025 1:11 PM EDT Aura Vu NP LAB BLOOD ORDERABLES Final Resu lt [facility] [address] [place] [phone] * (ABNORMAL) Lipid Panel, Standard (05/16/2025 12:03 PM EDT) Triglycerides 154(H) <150 mg/dL [facility] Comment:Desirable Triglyceri de: less than 150 mg/dLBorderline High Triglyceride 150-199 mg/dLHigh Triglyceride: 200-499 mg/dLVery High Triglyceride: greater than or equal to 5OO mg/dL Cholesterol 261(H) <200 mg/dL [facility] Comment:Desirable Cholestero l: less than 200 mg/dLBorderline High Cholesterol: 200-239 mg/dLHigh Cholesterol: greater than 239 mg/dL LDL Cholesterol Calculated 179(H) <100 mg/dL [facility] Comment:Desirable LDL: less than 100 mg/dLNear Optimal/Above Optimal LDL: 110- 129 mg/dLBorderline High LDL: 130-159 mg/dLHigh LDL: 160-189 mg/dLVery High LDL: greater than or equal to 190 mg/dL HDL Cholesterol 52 >40 mg/dL [facility] Comment:Desirable HDL: great er than 40 mg/dL Note: This HDL assay may give artificially low results in patients with liver disease. 05/16/2025 12:0 3 PM EDT 05/16/2025 1:31 PM EDT us Generic External Data Provider LAB BLOOD ORDERAB LES Final Result [facility] [address] [place] [phone] * (ABNORMAL) Comprehensive Metabolic Panel (05/16/2025 12:03 PM EDT) Only the most recent of2 resultswithin the time period is included. Sodium 142 135 - 145 mmol/L [facility] Potassium 4.1 3.3 - 5.1 mmol/L [facility] Chloride 107 96 - 108 mmol/L [facility] Carbon Dioxide 27 22 - 29 mmol/L [facility] Anion Gap 12 12 - 20 [facility] Urea Nitrogen (BUN) 13 9 - 16 mg/dL [facility] Creatinine, Serum 0.63 0.5 - 1.4 mg/dL [facility] Estimated Glomerular Filt Rate >60 [facility] Comment:Chronic Kidney Disea se: Estimated GFR < 60 mL/min/1.17c2Yafsyp Kidney Disease: Estimated GFR < 15 mL/min/1.73m2 Glucose 84 60 - 115 mg/dL [facility] Calcium 9.7 8.4 - 10.2 mg/dL [facility] Bilirubin, Total 0.3 0.0 - 1.0 mg/dL [facility] Aspartate Amino Transferase 33(H) 5 - 31 U/L [facility] Alanine Aminotransferase 27 0 - 31 U/L [facility] Total Protein 9.2(H) 6.5 - 8.0 g/dL [facility] Albumin Level 4.7 3.5 - 5.0 g/dL [facility] Alkaline Phosphatase 81 39 - 117 U/L [facility] Blood Venous blood specimen / Unknown 05/16/2025 12:03 PM EDT 05/16/2025 1:31 PM EDT us Aura Vu GUM SPRAYER LAB BLOOD ORDERABLES Final Resu lt [facility] [address] [place] [phone] * ECG 12 lead (05/15/2025 11:00 AM EDT) Narrative Raoul Hills MD - 05/15/2025 11:00 AM EDT NSR, HR 76 BPM LAFB Raoul Reed MD ECG ORDERABLES Final Result * BI Mammogram Screening Tomosynthesis Bilateral (05/15/2025 10:22 AM EDT) Anatomical Region Laterality Modality Breast Bilateral Mammography 05/15/2025 10:2 2 AM EDT Narrative 05/19/2025 7:08 AM EDT [facility] [address] [place] [address] Mammography Report Signed Patient: Ginette Arceo MR #: [id number] : 1975 Acct:[id number] Age/Sex: 49 / F ADM Date: 05/15/25 Loc: [facility] Attending Dr: Sisi Kennedy AUTOMOTIVE REPAIR TECHNICIAN Ordering Physician: Ebony Daigle MD Results: 2Be nign Date of Service: 05/15/25 Follow Up: 1 Year From Orig inal Mammogram Procedure(s): MM tomosynthesis screening BI Accession Number(s): [id number] cc: Ebony Daigle MD; Mackenzie Estrada Reason For Exam: screen mammogram EXAMINATION: MM SCREENING DIGITAL BREAST TOMOSYNTHESIS, BILATERAL CLINICAL INFORMATION: Screening. Asymptomatic. Scar over right breast from Port-A-Cath focal chemotherapy for heart and lung cancer. History of axillary surgery for infection. COMPARISON: Comparison made to multiple prior, most recent October 09, 2021, and most remote June 20, 2013. TECHNIQUE: Digital breast tomosynthesis is performed in mediolateral oblique and craniocaudal views along with computer-aided detection (CAD). Synthesized 2D images are generated from the tomosynthesis. FINDINGS: BREAST COMPOSITION: There are scattered areas of fibroglandular density. RIGHT BREAST: Multiple surgical clips in the right axillary region. No significant masses, suspicious calcifications or other abnormalities are seen. LEFT BREAST: No significant masses, suspicious calcifications or other abnormalities are seen. MM/MM tomosynthesis screening BI IMPRESSION: BILATERAL BREASTS: Benign, no mammographic evidence of malignancy. Normal interval follow-up is recommended in 12 months. ASSESSMENT: BI-RADS: Category 2: Benign RECOMMENDATION: Routine annual mammography screening. FOLLOW-UP: 1 year F/U This examination should not preclude the clinical evaluation of a suspicious palpable abnormality. This patient's information was entered into a reminder system with a target due date for their next mammogram. Electronically signed by: Theodore Deng MD 05/19/2025 07:05 AM EDT Dictated By: Theodore Deng MD Signed By: <Electronically signed by Theodore Deng MD in OV> 05/19/25 0705 DD/ 1022 TD/TT: 05/15/25 1052 [place] Operator: Procedure Note Donotuseinterpreter, Image - 05/19/2025 [facility] [address] [place] [address] Mammography Report Signed Patient: Ginette Arceo #: [id number] : 1975Acct:[id number] Age/Sex: 49 / FADM Date: 05/15/25 Loc: [facility]ICA[facility] Attending Dr: Sisi Kennedy AUTOMOTIVE REPAIR TECHNICIAN Ordering Physician: Ebony Daigle MDResults: 2Be nign Date of Service: 05/15/25Follow Up: 1 Year From Orig inal Mammogram Procedure(s): MM tomosynthesis screening BI Accession Number(s): [id number] cc: Ebony Daigle MD; Mackenzie Estrada Reason For Exam: screen mammogram EXAMINATION: MM SCREENING DIGITAL BREAST TOMOSYNTHESIS, BILATERAL CLINICAL INFORMATION: Screening. Asymptomatic. Scar over right breast from Port-A-Cath focal chemotherapy for heart and lung cancer. History of axillary surgery for infection. COMPARISON: Comparison made to multiple prior, most recent October 09, 2021, and most remote June 20, 2013. TECHNIQUE: Digital breast tomosynthesis is performed in mediolateral oblique and craniocaudal views along with computer-aided detection (CAD). Synthesized 2D images are generated from the tomosynthesis. FINDINGS: BREAST COMPOSITION: There are scattered areas of fibroglandular density. RIGHT BREAST: Multiple surgical clips in the right axillary region. No significant masses, suspicious calcifications or other abnormalities are seen. LEFT BREAST: No significant masses, suspicious calcifications or other abnormalities are seen. MM/MM tomosynthesis screening BI IMPRESSION: BILATERAL BREASTS: Benign, no mammographic evidence of malignancy. Normal interval follow-up is recommended in 12 months. ASSESSMENT: BI-RADS: Category 2: Benign RECOMMENDATION: Routine annual mammography screening. FOLLOW-UP: 1 year F/U This examination should not preclude the clinical evaluation of a suspicious palpable abnormality. This patient's information was entered into a reminder system with a target due date for their next mammogram. Electronically signed by: Theodore Deng MD 05/19/2025 07:05 AM EDT Dictated By: Theodore Deng MD Signed By: <Electronically signed by Theodore Deng MD in OV> 05/19/25 0705 DD/ 1022 TD/TT: 05/15/25 1052 Bush [place] Operator: Ebony Daigle MD [facility] BI PROCEDURES Edited Result - Final * (ABNORMAL) POCT GALLO-14 Urine Drug Screen [...] Unknown 05/14/2025 9:27 AM EDT Sisi Kennedy AUTOMOTIVE REPAIR TECHNICIAN POINT OF CARE TEST ENTER/EDIT ORDERABLES Edited Result - Final * Gram Stain Result (04/09/2025 12:20 PM EDT) 04/09/2025 12:2 0 PM EDT 04/10/2025 12:26 PM EDT Comment:Elbow Lt Narrative [facility] - 04/12/2025 8:06 AM EDT Gram stain results: No polys 1+ epithelial cells No organisms seen Routine Culture No growth after 2 days Specimen Source: Elbow Left David Jensen MD HISTORICAL/NON ORDERABLE LABS Fi nal Result Performing Organization Address City/State/[facility] Co de Phone Number [facility] [address] [place] [phone] * Urinalysis w/reflex microscopic (04/04/2025 10:30 AM EDT) Color Urine Yellow [facility] Appearance Urine Clear [facility] PH 5.0 5.0 - 9.0 [facility] Glucose Urine UA Negative Negative mg/dL [facility] Urine Blood Negative Negative [facility] Specific [place] - Urine 1.020 1.005 - 1.025 [facility] Urine Protein Negative Neg-Trace mg/dL [facility] Urine Ketones Negative Negative mg/dL [facility] Nitrite Urine Negative Negative [facility] Leukocyte Esterase Urine Negative Negative [facility] 04/04/2025 10:3 0 AM EDT 04/04/2025 11:09 AM EDT Narrative [facility] - 04/04/2025 11:25 AM EDT Urine, Clean Catch Generic External Data Provider LAB URINE ORDERAB LES Final Result Performing Organization Address [facility] Co de Phone Number [facility] [address] [place] [phone] * (ABNORMAL) Uric acid (04/04/2025 10:30 AM EDT) Uric Acid 6.3(H) 2.4 - 5.7 mg/dL [facility] 04/04/2025 10:3 0 AM EDT 04/04/2025 11:15 AM EDT Generic External Data Provider LAB BLOOD ORDERAB LES Final Result Performing Organization Address [facility] Co de Phone Number [facility] [address] [place] [phone] * Lactate Dehydrogenase (LD) (04/04/2025 10:30 AM EDT) Lactate Dehydrogenase 130 122 - 220 U/L [facility] 04/04/2025 10:3 0 AM EDT 04/04/2025 11:15 AM EDT Generic External Data Provider LAB BLOOD ORDERAB LES Final Result Performing Organization Address [facility] de Phone Number [facility] [address] [place] [phone] * Hepatic Function Panel (04/04/2025 10:30 AM EDT) Bilirubin, Direct 0.1 0.0 - 0.5 mg/dL [facility] 04/04/2025 10:3 0 AM EDT 04/04/2025 11:15 AM EDT us Generic External Data Provider LAB BLOOD ORDERAB LES Final Result [facility] [address] [place] [phone] * XR Elbow 3+ Views Left (04/04/2025 10:14 AM EDT) Anatomical Region Laterality Modality Upper Extremities, Elbow Left Radiogr aphic Imaging 04/04/2025 10:1 4 AM EDT Narrative 04/04/2025 11:12 AM EDT [facility] [address] [place] [address] XRay Report Signed Patient: Ginette Arceo MR #: [id number] : 1975 Acct:[id number] Age/Sex: 49 / F ADM Date: 04/04/25 [facility]: Marychuy Bonilla NP Ordering Physician: MARYCHUY BONILLA NP Date of Service: 04/04/25 Procedure(s): XR elbow LT min 3V Accession Number(s): [id number] cc: Mackenzie Estrada; MARYCHUY BONILLA NP Reason [...] 04/04/25 1109 DD/ 1014 TD/TT: 04/04/25 1102 Bush Hog Operator: Procedure Note Donotuseinterpreter, Image - 04/04/2025 [facility] [address] [place] [address] XRay Report Signed Patient: Ginette ArceoMR #: [id number] : 1975Acct:[id number] Age/Sex: 49 / FADM Date: 04/04/25 Loc: [facility] Attending Dr: Marychuy Bonilla NP Ordering Physician: MARYCHUY BONILLA NP Date of Service: 04/04/25 Procedure(s): XR elbow LT min 3V Accession Number(s): [id number] cc: Mackenzie Estrada; MARYCHUY BONILLA NP Reason [...] 04/04/25 1109 DD/ 1014 TD/TT: 04/04/25 1102 Bush Hog Operator: Marychuy Bonilla ANP IMG XR PROCEDURES Final Result * Hepatitis C Ab (04/11/2024 10:26 AM EDT) Hepatitis C Antibody Nonreactive Nonreactive [facility] Comment:Antibodies to HCV no t detected; does not exclude early acuteHCV infection. Blood Venous blood specimen / Unknown 04/11/2024 10:26 AM EDT 04/11/2024 11:19 AM EDT Mackenzie Estrada MD LAB BLOOD ORDERABLES Final Res ult Performing Organization Address City/[facility]/ZIP Co de Phone Number [facility] [address] [place] [phone] * HIV-1/2 Antigen and Antibodies, Fourth Generation, with Reflexes (04/11/2024 10:26 AM EDT) HIV AB/AG Nonreactive Nonreactive [facility] Comment:HIV-1 p24 Ag and/or HIV-1/HIV-2 Ab not detected.A test result that is nonreactive does not exclude thepossibility of exposure to or infection with HIV-1 and/orHIV-2. Nonreactive results in this assay for individualswith prior exposure to HIV-1 and/or HIV-2 may be due toantigen and antibody levels that are below the limit ofdetection of this assay.The [employer] HIV Ag/Ab Combo assay result andsupplemental assay results should be interpreted inconjunction with the patient's clinical presentation,history and other laboratory results. If the results areinconsistent with clinical evidence, additional testing issuggested to confirm the result. Blood Venous blood specimen / Unknown 04/11/2024 10:26 AM EDT 04/11/2024 11:19 AM EDT Mackenzie Estrada MD LAB BLOOD ORDERABLES Final Res ult Performing Organization Address [facility] Co de Phone Number [facility] [address] [place] [phone] * HPV mRNA E6/E7 w/Reflex to HPV Genotypes 16, 18/45 (09/29/2023 12:26 PM EST) HPV nRNA E6/E7 Not Detected Not Detected [facility] Comment:Methodology: Transcr iption-Mediated AmplificationThis assay detects E6/E7 viral messenger RNA (mRNA) from 14high-risk HPV types (16,18,31,33,35,39,45,51,52,56,58,59,66,68).Cervical sources are required for HPV testing.If a vaginal source from a patient who has had atotal hysterectomy with removal of cervix wassubmitted, please contact the testing laboratoryfor alternative testing options.For additional information, please refer tohttp://education.Banki.ru/faq/KKT721o4(This link if provided for information/educational purposes only.)THIS TEST WAS PERFORMED AT:[facility] [place] [id number] GALVAN MD HPV mRNA E6/E7 TNP [facility] HPV 16 RNA TNP [facility] HPV 18/45 RNA TNP [facility] 09/29/2023 12:2 6 PM EST 09/30/2023 11:30 AM EST Mackenzie Estrada MD LAB CYTOLOGY ORDERABLES Final Result [facility] [address] [place] [phone] * Pap Smear (09/29/2023 12:26 PM EST) 09/29/2023 12:2 6 PM EST 09/30/2023 11:30 AM EST Narrative [facility] - 10/12/2023 4:18 PM EDT ----- ------- Name: Ovidio LacyGinette Age/Sex: 48/F : 1975 Unit#: [id number] Attend Dr: Mackenzie Estrada Re09/29/23 Status: DEP REF Location: [facility] Disch: ----- ------- SPEC : [id number] RECD: 09/30/23 STATUS: NIRMALA PEREZ NUM: [id number] BHAVIN: 09/29/23-[address] [facility] [address]: Mackenzie Estrada ENTERED: 09/30/23-132 SP TYPE: Pap Smr OT DR: ORDERED: Pap Smear Interpretation Satisfactory for evaluation. Negative for intraepithelial lesion or malignancy. HPV mRNA E6/E7: NOT DETECTED This assay detects E6/E7 viral messenger RNA (mRNA) from 14 high-risk HPV types (16, 18, 31, 33, 35, 39, 45, 51, 52, 56, 58, 59, 66, 68) HPV testing performed by [facility], [place], [place]. See reference laboratory portion of the EMR for entire report. Clinical Information LMP: Heavy menstrual bleeding past two weeks Previous PAP test: Unknown date/findings Other history: Material Received ThinPrep-Cervical ----- ------- Signed (signature on file) BARB Hawley (ASCP) 10/12/23 1618 ----- ------- END OF REPORT Mackenzie Estrada MD LAB CYTOLOGY ORDERABLES Final Result [facility] [address] [place] [phone] * Colonoscopy (10/28/2017) Colonoscopy Normal Normal Narrative Cecilia Henriquez - 10/28/2017 Recommended 10 year follow [place] [place] Historical Provider HEALTH MAINTENANCE Edited Result - Final from Last 3 Months or Most Recently Relevant to Health Maintenance Insurance [facility] C3 DENTAL-[facility] [place] [address] [place] [address] Care Teams Sociology Teacher Relationship Specialty Start Date End Date Mackenzie Estrada MD [address] [place] [address] [place] [address] PCP - General Family Medicine 07/10/20 Hemalatha Pretty Drying Room OperatorSaturator Operator 01/02/25
--- OUTSIDE RECORDS SUMMARY | 2025-06-12 07:38 | XMS_ITS | Encounter Summary ---
Author Organization [employer] Address [address] [facility] 7t [place] [address] Care Team Providers Care Core Shaper Name Role Phone Mackenzie Estrada MD Primary Care Provider [phone] Casper Magaña RN Unavailable [phone] Ruth Ann Price Unavailable Unavailable Ruth Ann Price Unavailable Ruth Ann Price Unavailable Reason for Visit * Reason Comments Med Refill Encounter Details Date Type Department Care Team (Late st Contact Info) Description 07/28/2022 Refill [facility] [address] [place] [address] Mackenzie Estrada MD [address] [place] [address] Pain in both hands Social History Tobacco [...] Description 07/09/2025 9:45 AM EST Office Visit [facility] [address] [place] [address] documented as of this encounter Visit Diagnoses Diagnosis Pain in both hands documented in this encounter Care Teams Core Shaper Relationship Specialty Start Date End Date Mackenzie Estrada MD [address] [place] [address] PCP - General Family Medicine 07/10/20 Casper Magaña RN [address] [place] [phone] Registered Nurse Family Medicine 01/18/25 01/18/25 Ruth Ann Price 02/19/25 02/19/25 Ruth Ann Price 02/19/25 02/28/25 Ruth Ann Price 03/29/25 04/03/25 Hemalatha Pretty Frog Or Oyster FarmworkerVideo Production Intern 01/02/25 documented as of this encounter
--- OUTSIDE RECORDS SUMMARY | 2025-06-12 07:38 | XMS_ITS | Encounter Summary ---
Author Organization [employer] Address [address] [facility] [address] 7t [place] [address] Care Team Providers Care Air Sampling And Monitoring Name Role Phone Mackenzie Estrada MD Primary Care Provider [phone] Casper Magaña RN Unavailable [phone] Ruth Ann Price Unavailable Unavailable Ruth Ann Price Unavailable Ruth Ann Price Unavailable Encounter Details Date Type Department Care Team (Late st Contact Info) Description 06/01/2023 Orders Only [facility] [address] [place] [address] Mackenzie Estrada MD [address] [place] [address] Encounter for smoking cessation counseling (Primary Dx) [...] Office Visit [facility] [address] [place] [address] documented as of this encounter Goals Goal Patient Goal Type Associated Problems Recent Progress Patient-Stated? Author Quit using tobacco (cigarettes, smokeless, etc) Tobacco Use Corey Cornell, [place] documented as of this encounter Visit Diagnoses Diagnosis Encounter for smoking cessation counseling- Primary documented in this encounter Care Teams Air Sampling And Monitoring Relationship Specialty Start Date End Date Mackenzie Estrada MD [address] [place] [address] PCP - General Family Medicine 07/10/20 Casper Magaña, JENNIFER [address] [place] [address] Registered Nurse Family Medicine 01/18/25 01/18/25 Ruth Ann Price 02/19/25 02/19/25 Ruth Ann Price 02/19/25 02/28/25 Ruth Ann Price 03/29/25 04/03/25 Hemalatha Pretty Associate Data ScientistPen And Pencil Repairer 01/02/25 documented as of this encounter
--- OUTSIDE RECORDS SUMMARY | 2025-06-12 07:38 | XMS_ITS | Encounter Summary ---
Author Organization [employer] Address [address] [facility] 7t [place] [address] Care Team Providers Care Adolescent Specialist Name Role Phone Mackenzie Estrada MD Primary Care Provider [phone] Casper Magaña RN Unavailable [phone] Ruth Ann Price Unavailable Unavailable Ruth Ann Price Unavailable Ruth Ann Price Unavailable Reason for Visit * Reason Comments Med Refill Encounter Details Date Type Department Care Team (Late st Contact Info) Description 07/26/2023 Refill [facility] [address] [place] [address] Name, MD Mark [address] [place] [address] Pain in both hands Social History Tobacco [...] Visit [facility] [address] [place] [address] documented as of this encounter Goals Goal Patient Goal Type Associated Problems Recent Progress Patient-Stated? Author Quit using tobacco (cigarettes, smokeless, etc) Tobacco Use Corey Cornell, KelechiD documented as of this encounter Visit Diagnoses Diagnosis Pain in both hands documented in this encounter Care Teams Adolescent Specialist Relationship Specialty Start Date End Date Mackenzie Estrada MD [address] [place] [address] PCP - General Family Medicine 07/10/20 Casper Magaña, JENNIFER [address] [place] [address] Registered Nurse Family Medicine 01/18/25 01/18/25 Ruth Ann Price 02/19/25 02/19/25 Ruth Ann Price 02/19/25 02/28/25 Ruth Ann Price 03/29/25 04/03/25 Hemalatha Pretty Gamma OperatorClinical Esthetician 01/02/25 documented as of this encounter
--- OUTSIDE RECORDS SUMMARY | 2025-06-12 07:38 | XMS_ITS | Encounter Summary ---
Author Organization [employer] Address [address] [facility] 7t [place] [address] Care Team Providers Care Air Brake Man Name Role Phone Mackenzie Estrada MD Primary Care Provider Casper Magaña RN Unavailable Ruth Ann Price Unavailable Unavailable Ruth Ann Price Unavailable Ruth Ann Price Unavailable Reason for Visit * Reason Onset Date Comments Error 08/16/2023 Encounter Details Date Type Department Care Team ([facility] st Contact Info) Description 08/16/2023 Telephone [facility] [address] [place], [place] [phone] Mackenzie Estrada MD [address] [place], [place] [phone] Error Social History Tobacco Use Types Packs/Day [...] Description 07/09/2025 9:45 AM EST Office Visit [facility] [address] [place] [address] documented as of this encounter Goals Goal Patient Goal Type Associated Problems Recent Progress Patient-Stated? Author Quit using tobacco (cigarettes, smokeless, etc) Tobacco Use Corey Cornell, KelechiD documented as of this encounter Visit Diagnoses Not on filedocumented in this encounter Care Teams Air Brake Man Relationship Specialty Start Date End Date Mackenzie Estrada MD [address] [place] [address] PCP - General Family Medicine 07/10/20 Casper Magaña, JENNIFER [address] [place] [address] Registered Nurse Family Medicine 01/18/25 01/18/25 Ruth Ann Price 02/19/25 02/19/25 Ruth Ann Price 02/19/25 02/28/25 Ruth Ann Price 03/29/25 04/03/25 Hemalatha Pretty Float TenderSpa Therapist 01/02/25 documented as of this encounter
--- OUTSIDE RECORDS SUMMARY | 2025-06-12 07:38 | XMS_ITS | Encounter Summary ---
Author Organization [employer] Address [address] [facility] 7t [place] [address] Care Team Providers Care Telephoto Engineer Name Role Phone Mackenzie Estrada MD Primary Care Provider [phone] Casper Magaña RN Unavailable [phone] Ruth Ann Price Unavailable Unavailable Ruth Ann Price Unavailable Ruth Ann Price Unavailable Reason for Visit * Reason Comments Med Refill Encounter Details Date Type Department Care Team (Late st Contact Info) Description 06/02/2023 Refill [facility] [address] [place] [address] Mackenzie Estrada MD [address] [place], [place] [phone] Pain in both hands Social History Tobacco [...] Description 07/09/2025 9:45 AM EST Office Visit [facility] [address] [place] [address] documented as of this encounter Goals Goal Patient Goal Type Associated Problems Recent Progress Patient-Stated? Author Quit using tobacco (cigarettes, smokeless, etc) Tobacco Use Corey Cornell, PharmD documented as of this encounter Visit Diagnoses Diagnosis Pain in both hands documented in this encounter Care Teams Telephoto Engineer Relationship Specialty Start Date End Date Mackenzie Estrada MD [address] [place] [address] PCP - General Family Medicine 07/10/20 Casper Magaña, JENNIFER [address] [place] [address] Registered Nurse Family Medicine 01/18/25 01/18/25 Ruth Ann Price 02/19/25 02/19/25 Ruth Ann Price 02/19/25 02/28/25 Ruth Ann Price 03/29/25 04/03/25 Hemalatha Pretty Payroll AccountantFinishing Technician 01/02/25 documented as of this encounter
--- OUTSIDE RECORDS SUMMARY | 2025-06-12 07:38 | XMS_ITS | Encounter Summary ---
Author Organization [employer] Address [address] [facility] 7t [place] [address] Care Team Providers Care Survey Cad Technician Name Role Phone Mackenzie Estrada MD Primary Care Provider [phone] Casper Magaña RN Unavailable [phone] Ruth Ann Price Unavailable Unavailable Ruth Ann Price Unavailable Ruth Ann Price Unavailable Reason for Visit * Reason Comments Med Refill Encounter Details Date Type Department Care Team (Late st Contact Info) Description 07/20/2024 Refill [facility] [address] [place] [address] Mackenzie Estrada MD [address] [place] [address] 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 ([facility]) Social History Tobacco Use Types Packs/Day Years [...] [facility] [address] [place] [address] documented as of this encounter Goals Goal [...] documented as of this encounter Care Teams Survey Cad Technician Relationship Specialty Start Date End Date Mackenzie Estrada MD [address] [place] [address] PCP - General Family Medicine 07/10/20 Casper Magaña, RN [address] [place] [phone] Registered Nurse Family Medicine 01/18/25 01/18/25 Ruth Ann Price 02/19/25 02/19/25 Ruth Ann Price 02/19/25 02/28/25 Ruth Ann Price 03/29/25 04/03/25 Hemalatha Pretty Senior Piping DesignerBox Fabricator 01/02/25 documented as of this encounter
--- OUTSIDE RECORDS SUMMARY | 2025-06-12 07:38 | XMS_ITS | Encounter Summary ---
Author Organization [facility] Address [address] [facility] 7t [place] [address] Care Team Providers Care Permanent Mold Supervisor Name Role Phone Mackenzie Estrada MD Primary Care Provider [phone] Casper Magaña RN Unavailable [phone] Ruth Ann Price Unavailable Unavailable Ruth Ann Price Unavailable Ruth Ann Price Unavailable Encounter Details Date Type Department Care Team (Late Contact Info) Description 03/29/2023 Abstract [facility] [address] [place] [address] [phone] Cecilia Henriquez Social History Tobacco Use Types [...] 9:45 AM EST Office Visit [facility] [address] [place], [place] [phone] documented as of this encounter Procedures Procedure Name Priority Date/Time Associated Diagnosis Comments HM COLONOSCOPY Routine 10/28/2017 documented in this encounter Results * Colonoscopy (10/28/2017) Colonoscopy Normal Normal Narrative Cecilia Henriquez - 10/28/2017 Recommended 10 year follow up ([facility] [place] [place] Historical Provider HEALTH MAINTENANCE Edited Result - Final documented in this encounter Visit Diagnoses Not on filedocumented in this encounter Care Teams Permanent Mold Supervisor Relationship Specialty Start Date End Date Mackenzie Estrada MD [address] [place], [place] [phone] PCP - General Family Medicine 07/10/20 Casper Magaña, JENNIFER [address] [place], [place] [phone] Registered Nurse Family Medicine 01/18/25 01/18/25 Ruth Ann Price 02/19/25 02/19/25 Ruth Ann Price 02/19/25 02/28/25 Ruth Ann Price 03/29/25 04/03/25 Hemalatha Pretty Motor Coach ChauffeurMedical Secretary Receptionist 01/02/25 documented as of this encounter
--- OUTSIDE RECORDS SUMMARY | 2025-06-12 07:38 | XMS_ITS | Encounter Summary ---
Author Organization [employer] Address [address] [facility] 7t [place] [address] Care Team Providers Care Sap Basis Architect Name Role Phone Mackenzie Estrada MD Primary Care Provider [phone] Casper Magaña RN Unavailable [phone] Ruth Ann Price Unavailable Unavailable Ruth Ann Price Unavailable Ruth Ann Price Unavailable Reason for Visit * Reason Onset Date Comments Triage 11/10/2022 Encounter Details Date Type Department Care Team ([facility] st Contact Info) Description 11/10/[address] [facility] [address] [place] [address] Mackenzie Estrada MD [address] [place] [address] Triage Social History Tobacco Use Types Packs/Day [...] - 11/11/2022 11:10 AM EDT TC to [phone] via [employer] interpreters in regards to below message. Pt reports she went to [facility] since [facility] did not return her call. RN informed pt triage nurses attempted to call pt x2 however pt did not answer. RN reviewed 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 RN asked if [facility] informed the pt they were going to order it however pt was not sure. RN placed pt on hold and called [facility] pharmacy who reports it is supposed to be arriving in store today and pt should call around 3pm to inquire if it was received and ready for milk pickup truck driver. Pt verbalized understanding. RN advised pt [...] EDT Triage call returned to patient with [employer] information support project manager [phone] to listed number x 2 no answer. Left message to return call to [phone]. Team Nurses tasked to follow with patient [...] Description 07/09/2025 9:45 AM EST Office Visit [facility] [address] [place] [address] documented as of this encounter Visit Diagnoses Not on filedocumented in this encounter Care Teams Sap Basis Architect Relationship Specialty Start Date End Date Mackenzie Estrada MD [address] [place] [address] PCP - General Family Medicine 07/10/20 Casper Magaña, JENNIFER [address] [place] [address] Registered Nurse Family Medicine 01/18/25 01/18/25 Ruth Ann Price 02/19/25 02/19/25 Ruth Ann Price 02/19/25 02/28/25 Ruth Ann Price 03/29/25 04/03/25 Hemalatha Pretty Manufacturing AssistantBrim Rounder 01/02/25 documented as of this encounter
--- OUTSIDE RECORDS SUMMARY | 2025-06-12 07:38 | XMS_ITS | Encounter Summary ---
Author Organization [employer] Address [address] [facility] [address] [address] 7t [place] [address] Care Team Providers Care Obstetrics And Gynecology Professor Name Role Phone Mackenzie Estrada MD Primary Care Provider [phone] Casper Magaña RN Unavailable [phone] Ruth Ann Price Unavailable Unavailable Ruth Ann Price Unavailable Ruth Ann Price Unavailable Encounter Details Date Type Department Care Team (Late st Contact Info) Description 04/10/2024 Orders Only [facility] [address] [place] [address] Mackenzie Estrada MD [address] [place] [address] Social History Tobacco Use Types Packs/Day Years [...] Description 07/09/2025 9:45 AM EST Office Visit [facility] [address] [place] [address] documented as of this encounter Goals Goal Patient Goal Type Associated Problems Recent Progress Patient-Stated? Author Quit using tobacco (cigarettes, smokeless, etc) Tobacco Use Corey Cornell, KelechiD documented as of this encounter Visit Diagnoses Not on filedocumented in this encounter Care Teams Obstetrics And Gynecology Professor Relationship Specialty Start Date End Date Mackenzie Estrada MD [address] [place] [address] PCP - General Family Medicine 07/10/20 Casper Magaña, JENNIFER [address] [place] [address] Registered Nurse Family Medicine 01/18/25 01/18/25 Ruth Ann Price 02/19/25 02/19/25 Ruth Ann Price 02/19/25 02/28/25 Ruth Ann Price 03/29/25 04/03/25 Hemalatha Pretty Air Force Senior OfficerMedicare Insurance Specialist 01/02/25 documented as of this encounter
--- OUTSIDE RECORDS SUMMARY | 2025-06-12 07:38 | XMS_ITS | Encounter Summary ---
Author Organization [employer] Address [address] [facility] 7t [place] [address] Care Team Providers Care Career Center Director Name Role Phone Mackenzie Estrada MD Primary Care Provider [phone] Casper Magaña RN Unavailable [phone] Ruth Ann Price Unavailable Unavailable Ruth Ann Price Unavailable Ruth Ann Price Unavailable Reason for Visit * Reason Comments Med Refill Encounter Details Date Type Department Care Team (Late st Contact Info) Description 07/21/2023 Refill [facility] [address] [place] [address] Name, MD Mark [address] [place] [address] Pain in both hands Social History Tobacco [...] 9:45 AM EST Office Visit [facility] [address] [place] [address] documented as of this encounter Goals Goal Patient Goal Type Associated Problems Recent Progress Patient-Stated? Author Quit using tobacco (cigarettes, smokeless, etc) Tobacco Use Corey Cornell, KelechiD documented as of this encounter Visit Diagnoses Diagnosis Pain in both hands documented in this encounter Care Teams Career Center Director Relationship Specialty Start Date End Date Mackenzie Estrada MD [address] [place] [address] PCP - General Family Medicine 07/10/20 Casper Magaña, JENNIFER [address] [place] [address] Registered Nurse Family Medicine 01/18/25 01/18/25 Ruth Ann Price 02/19/25 02/19/25 Ruth Ann Price 02/19/25 02/28/25 Ruth Ann Price 03/29/25 04/03/25 Hemalatha Pretty Sas AnalystCrossing Watchman 01/02/25 documented as of this encounter
--- OUTSIDE RECORDS SUMMARY | 2025-06-12 07:38 | XMS_ITS | Encounter Summary ---
Author Organization [employer] Address [address] [facility] 7t [place] [address] Care Team Providers Care Sports Administrator Name Role Phone Mackenzie Estrada MD Primary Care Provider [phone] Casper Magaña RN Unavailable [phone] Ruth Ann Price Unavailable Unavailable Ruth Ann Price Unavailable Ruth Ann Price Unavailable Reason for Visit * Reason Comments Med Refill Encounter Details Date Type Department Care Team (Late st Contact Info) Description 08/26/2023 Refill [facility] [address] [place] [address] Sisi Kennedy, FARHEEN [address] [place] [address] Viral upper respiratory tract infection Social History [...] Description 07/09/2025 9:45 AM EST Office Visit [facility] [address] [place] [address] documented as of this encounter Goals Goal Patient Goal Type Associated Problems Recent Progress Patient-Stated? Author Quit using tobacco (cigarettes, smokeless, etc) Tobacco Use Corey Cornell, PharmD documented as of this encounter Visit Diagnoses Diagnosis Viral upper respiratory tract infection Acute upper respiratory infections of unspecified site documented in this encounter Care Teams Sports Administrator Relationship Specialty Start Date End Date Mackenzie Estrada MD [address] [place] [address] PCP - General Family Medicine 07/10/20 Casper Magaña, JENNIFER [address] [place] [address] Registered Nurse Family Medicine 01/18/25 01/18/25 Ruth Ann Price 02/19/25 02/19/25 Ruth Ann Price 02/19/25 02/28/25 Ruth Ann Price 03/29/25 04/03/25 Hemalatha Pretty Pest Control OperatorStudent Ambassador 01/02/25 documented as of this encounter
--- OUTSIDE RECORDS SUMMARY | 2025-06-12 07:38 | XMS_ITS | Encounter Summary ---
Author Organization [employer] Address [address] [facility] 7t [place] [address] Care Team Providers Care Lpn Medical Assistant Name Role Phone Mackenzie Estrada MD Primary Care Provider [phone] Casper Magaña RN Unavailable [phone] Ruth Ann Price Unavailable Unavailable Ruth Ann Price Unavailable Ruth Ann Price Unavailable Reason for Visit * Reason Comments Med Refill Encounter Details Date Type Department Care Team (Late st Contact Info) Description 06/03/2023 Refill [facility] [address] [place] [address] Mackenzie Estrada MD [address] [place], [place] [id number] Pain in both hands Social History Tobacco [...] Description 07/09/2025 9:45 AM EST Office Visit [facility] [address] [place] [address] documented as of this encounter Goals Goal Patient Goal Type Associated Problems Recent Progress Patient-Stated? Author Quit using tobacco (cigarettes, smokeless, etc) Tobacco Use Corey Cornell, PharmD documented as of this encounter Visit Diagnoses Diagnosis Pain in both hands documented in this encounter Care Teams Lpn Medical Assistant Relationship Specialty Start Date End Date Mackenzie Estrada MD [address] [place] [address] PCP - General Family Medicine 07/10/20 Casper Magaña, JENNIFER [address] [place] [address] Registered Nurse Family Medicine 01/18/25 01/18/25 Ruth Ann Price 02/19/25 02/19/25 Ruth Ann Price 02/19/25 02/28/25 Ruth Ann Price 03/29/25 04/03/25 Hemalatha Pretty Terminal Block AssemblerPanel Installer 01/02/25 documented as of this encounter
--- OUTSIDE RECORDS SUMMARY | 2025-06-12 07:38 | XMS_ITS | Encounter Summary ---
Author Organization [employer] Address [address] [facility] [address] 7[address] [place] [address] Care Team Providers Care Electrogalvanizing Machine Operator Name Role Phone Mackenzie Estrada MD Primary Care Provider [phone] Casper Magaña RN Unavailable [phone] Ruth Ann Price Unavailable Unavailable Ruth Ann Price Unavailable Ruth Ann Price Unavailable Encounter Details Date Type Department Care Team (Late st Contact Info) Description 05/21/[address] [facility] [address] [place] [address] Mackenzie Estrada MD [address] [place] [address] Social History Tobacco Use Types Packs/Day Years [...] Description 07/09/2025 9:45 AM EST Office Visit [facility] [address] [place] [address] documented as of this encounter Goals Goal [...] documented as of this encounter Care Teams Electrogalvanizing Machine Operator Relationship Specialty Start Date End Date Mackenzie Estrada MD [address] [place] [address] PCP - General Family Medicine 07/10/20 Casper Magaña RN [address] [place] [address] Registered Nurse Family Medicine 01/18/25 01/18/25 Ruth Ann Price 02/19/25 02/19/25 Ruth Ann Price 02/19/25 02/28/25 Ruth Ann Price 03/29/25 04/03/25 Hemalatha Pretty Butter PrinterMail Opener 01/02/25 documented as of this encounter
== END ==
LOC: HO.CARD 07:34
PROVIDERS: PCP General Practice; Visit Provider Nurse Practitioner Family
DX: R07.2 Precordial pain (principal); I25.10 Atherosclerotic heart disease of native coronary artery without angina pectoris; Z98.890 Other specified postprocedural states; Z95.5 Presence of coronary angioplasty implant and graft
CPT/HCPCS: 78452; 93017; A9500; J0280; J2785

== ENCOUNTER → 2025-06-12 07:37 | Outpatient (BNV) | payer MEDICAID, SELFPAY | PROVIDERS: PCP General Practice | DX: I49.1 Atrial premature depolarization (principal) | CPT/HCPCS: 93016; 93018 ==

== ENCOUNTER 2025-07-01 09:10 | Outpatient (AMB) | payer MEDICAID, SELFPAY ==
--- NOTE | 2025-07-01 09:13 | MHC.OFFVIS ---
Vital Signs 07/01/25 09:14 Height 5 ft 6 in Weight 202 lb 13.204 oz BMI 32.7 BP 120/62 Blood Pressure Location Lt brachial Position Sitting Pulse 74 Pulse Source Pulse Oximeter Intake Visit Reasons: 5wk/karsten Prestressed Concrete Laborer Required: Yes Prestressed Concrete Laborer Language: Cop Name: voice castro [id number] Allergies almond (ALMONDS) Allergy (Severe, Verified 07/01/25 09:18) ANAPHYLAXIS adhesive tape (ADHESIVE TAPE) Allergy (Intermediate, Verified 07/01/25 09:18) RASH morphine (MORPHINE) Allergy (Intermediate, Verified 07/01/25 09:18) GI UPSET, difficulty breathing leflunomide Adverse Reaction (Intermediate, Verified 07/01/25 09:18) twitching tramadol (TRAMADOL) Adverse Reaction (Unknown, Verified 07/01/25 09:18) NAUSEA & VOMITING Medication List - Last Reconciled 07/01/25 by More Liz DISABILITY BENEFITS SPECIALIST-C acetaminophen (Tylenol Extra Strength) 1,000 mg (2 x 500 mg) PO Q8H PRN albuterol sulfate 90 mcg/actuation 2 puffs inhalation Q6H PRN alprazolam 1 mg PO BEDTIME PRN apixaban (Eliquis) 5 mg PO BID ascorbic acid (vitamin C) (Vitamin C) 1,000 mg (2 x 500 mg) PO QAM atorvastatin 80 mg PO DAILY cetirizine 10 mg PO QAM cholecalciferol (vitamin D3) (Vitamin D3) 25 mcg PO DAILY clopidogrel 75 mg PO DAILY cyclobenzaprine 5 mg PO TID PRN 7 days docusate sodium 100 mg PO BID ezetimibe (Zetia) 10 mg PO DAILY famotidine 20 mg PO BID ferrous sulfate 325 mg PO QAM gabapentin 400 mg PO TID metoprolol succinate ER 50 mg PO DAILY nicotine 1 patch topical QAM oxycodone-acetaminophen 7.5-325 mg 1 tab PO Q6H PRN prednisone 5 mg PO DAILY risperidone 0.5 mg PO DAILY PRN sertraline (Zoloft) 75 mg PO DAILY umeclidinium 62.5 mcg/actuation (Incruse Ellipta) 1 inh inhalation DAILY ursodiol 250 mg PO BID vitamin A 1 cap PO QAM HPI HPI 5wk/karsten: Details: Ginette is a 49-year-old female with past medical history of fibromyalgia, rheumatoid arthritis, SLE, non-Hodgkin's lymphoma 2004, smoking, PAD, DVT and on Eliquis, NSTEMI 05/2024 with cardiac catheterization showed 80% mid LAD stenosis and stent was placed who reported chest discomfort last visit and underwent a pharmacological nuclear stress test which was normal. Today she reports that she has been doing better. She says she is less anxious these days and has not been getting the discomfort like she previously reported. She has no chest discomfort brought on by physical activity. She denies shortness of breath, PND, orthopnea or edema. No lightheadedness, presyncope, syncope. She reports light physical activity due to her arthritis issues. She is scheduled for surgery on her elbow in August. Compliant with all meds. [facility] Medical History PAD (peripheral artery disease) Skin lesion Anxiety Achilles tendinitis Superficial femoral artery occlusion Knee pain, left Depression Hx of peripheral pulmonary artery stenosis History of chemotherapy Cancer of heart Bone cancer Lung cancer Iron deficiency Seropositive rheumatoid arthritis Bleeding hemorrhoid Degeneration, intervertebral disc, lumbar Chronic GERD Degeneration of intervertebral disc at C4-C5 level Osteoarthritis of spine with radiculopathy, lumbar region Fibromyalgia Esophageal dysphagia Vitamin D deficiency Systemic lupus erythematosus Seropositive rheumatoid arthritis Rheumatoid arthritis involving multiple sites Gallstones Stress incontinence in female Nocturia Urgency-frequency syndrome De Quervain's disease (tenosynovitis) Depressive disorder Acute arthritis Hodgkin disease Surgical History History of heart surgery History of surgical removal of skin lesion (~07/13/23) History of angioplasty of vein History of biopsy H/O tubal ligation Hx of endoscopy Hx laparoscopic cholecystectomy Hx of colonoscopy History of esophagogastroduodenoscopy (EGD) History of repair of inguinal hernia History of lymph node dissection of left axilla Family History Maternal Grandmother Ovarian cancer Social History Household Members: Significant Other Housing: Apartment Are you a primary rn care manager to a significant other at home: No Alcohol intake: never Comment: son at bedside Patient Tobacco Use Status: Never used Tobacco Tobacco use type: Cigarette Cigarette Packs Per Day: 1 Substance Use Type: Marijuana Advance Directives Date on File: 02/24/24 service: No Current occupational status: disabled 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 of Systems Const All systems reviewed & are unremarkable except as noted in HPI and below ENT Denies dizziness Card Denies chest pain, Denies chest pain at rest, Denies chest pain with activity, Denies rapid heart rate, Denies pedal edema, Denies edema, Denies leg edema, Denies lightheadedness, Denies palpitations, Denies dyspnea, Denies dyspnea on exertion and Denies orthopnea Resp Denies cough, Denies dyspnea and Denies dyspnea on exertion GI Denies hematochezia and Denies change in stool character Musc Denies abnormal gait, Denies limited range of motion, Denies muscle cramps, Denies muscle weakness, Denies numbness, Denies radiating pain into limb, Denies stiffness and Denies tingling Neuro Denies abnormal gait, Denies dizziness, Denies numbness and Denies tingling Endo Denies palpitations Physical Exam Vital Signs: Last Vital Signs Pulse 74 07/01/25 09:14 BP 120/62 07/01/25 09:14 BMI result Body Mass Index 32.7 Const Other: has arthritis and ambulates with cane General: cooperative, healthy appearing, comfortable and no acute distress Orientation/consciousness: patient oriented x3 Neck Neck: Yes normal visual inspection Resp Effort & Inspection: normal respiratory effort Auscultation: clear to auscultation bilaterally, no crackles, no rales, no rhonchi and no wheezes Cardio Jugular venous distension: no JVD Rate: regular rate Rhythm: regular rhythm Heart sounds: S1 normal heart sound present, S2 normal heart sound present, no gallops, no murmurs and no rubs Neuro General: patient oriented x3 Extrem General: Yes normal to inspection and No no pedal edema Psych Appearance: grossly normal Mental Status: mental status grossly normal Speech and movement: Normal speech and movement present Assessment & Plan Assessment & Plan (1) Chest pain, precordial: Code(s): R07.2 - Precordial pain Category: Medical Plan: Reports of chest discomfort at rest and with activity on last visit which has since resolved. History of NSTEMI with LAD stent placed 05/28/2024. Recent ER evaluation for chest discomfort and left prior to full evaluation. Troponin was normal. EKG last visit showing sinus rhythm with left anterior fascicular block which is unchanged from prior, rate 66. A pharmacological nuclear stress test done 06/13/2025 showed normal myocardial perfusion imaging. Currently no anginal symptoms. Continue med management for stable CAD. Cardiology follow-6 months, sooner if needed. (2) Coronary artery disease: Code(s): I25.10 - Atherosclerotic heart disease of [place] coronary artery without angina pectoris Category: Medical Plan: History of CAD, NSTEMI, LAD stent 05/28/2024. Other vessels normal at that time. Plavix can be stopped at this time as it has been over 1 year since stent placement. Continue Eliquis, f prior DVT, continue atorvastatin 80 mg daily with LDL goal less than 70. Continue metoprolol. Signs and symptoms of angina reviewed with her. (3) S/P cardiac cath: Comment: 05/28/2024 mid LAD 80% stenosis, RHIANNON placed, left main, left circumflex and RCA normal Code(s): Z98.890 - Other specified postprocedural states Category: Surgical Plan: As above (4) Stented coronary artery: Comment: LAD stent 05/28/2024 Code(s): Z95.5 - Presence of coronary angioplasty implant and graft Category: Surgical Plan: As above (5) Deep vein thrombophlebitis of right leg: Comment: 12/2021:acute partial DVT right proximal and distal posterior tibial vein. 2019: Anti cardiolipin antibody, anti beta 2 glycoprotein antibody, and lupus anticoagulant all negative Code(s): I80.201 - Phlebitis and thrombophlebitis of unspecified deep vessels of right lower extremity Category: Medical Plan: On Eliquis for this reason. She has no known history of atrial fibrillation. (6) Hyperlipidemia: Code(s): E78.5 - Hyperlipidemia, unspecified Category: Medical Plan: [place] LDL goal less than 70 in patient with CAD. Labs done 05/16/2025 showed LDL 179. She does report compliance with atorvastatin 80 mg each night. Unclear if this lab was fasting or not. Zetia 10 mg daily added last visit. Repeat fasting lipids still pending. Plan I discussed with the patient that the previous stress test was normal, which is a good sign for arterial health. I informed the patient that based on the current evaluation, the heart appears to be doing well. We scheduled a routine follow-up appointment in six months. I advised the patient to call and come in for an earlier appointment if any new symptoms develop, specifically chest pain or breathing difficulties. Patient Instructions: - Please continue to take all your medicines as prescribed. - We will have you follow up here in our office in six months. - If you have any new symptoms, like chest pain or trouble breathing, please call our office to be seen sooner. Patient was informed and verbally consented to the use of an ambient scribe for clinic note documentation during this visit. Visit time spent on chart review, interview, assessment, orders, documentation. Coding Level of Care Code Est Pt Level 3 (42305) Complex visit Add On G2211 Diagnoses Chest pain, precordial R07.2 Coronary artery disease I25.10 S/P cardiac cath Z98.890 Stented coronary artery Z95.5 Deep vein thrombophlebitis of right leg I80.201 Hyperlipidemia E78.5 Time Spent (min) 24
[2025-07-01 09:14] VITALS: BP 120/62; PULSE 74; BMI 32.7
--- OUTSIDE RECORDS SUMMARY | 2025-07-01 10:47 | XMS_ITS | Encounter Summary ---
Author Organization [employer] Address [address] 7t [place] [address] Care Team Providers Care Crab Fisher Name Role Phone Mackenzie Estrada MD Primary Care Provider [phone] Casper Magaña RN Unavailable [phone] Ruth Ann Price Unavailable Unavailable Ruth Ann Price Unavailable Ruth Ann Price Unavailable Reason for Visit * Reason Comments Med Refill Encounter Details Date Type Department Care Team (Late st Contact Info) Description 10/10/2024 Refill [facility] [address] [place] [address] Kat Yo MD [address] [place], [place] [phone] Rheumatoid arthritis involving right hand with positive [...] Upcoming Encounters Date Type Department Care Team ([facility] st Contact Info) Description 07/09/2025 9:45 AM EST Office Visit [facility] [address] [place] [address] documented as of this encounter Goals Goal Patient Goal Type Associated Problems Recent Progress Patient-Stated? Author Quit using tobacco (cigarettes, smokeless, etc) Tobacco Use No Corey Lin, PharmFrancia documented as of this encounter Visit Diagnoses Diagnosis 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 (CMS/HCC) ([facility]) Inflammatory arthritis Unspecified inflammatory polyarthropathy documented in this encounter Additional Health Concerns Assessment Noted Time PHQ-9 Depression Total Score: 2 04/30/20 24 10:41 AM EDT documented as of this encounter Care Teams Crab Fisher Relationship Specialty Start Date End Date Mackenzie Estrada MD [address] [place] [address] PCP - General Family Medicine 07/10/20 Casper Magaña, RN [address] [place] [address] [place] [address] Registered Nurse Family Medicine 01/18/25 01/18/25 Ruth Ann Price 02/19/25 02/19/25 Ruth Ann Price 02/19/25 02/28/25 Ruth Ann Price 03/29/25 04/03/25 Hemalatha Pretty Optical Glass InspectorNeedle Valve Operator 01/02/25 documented as of this encounter
--- OUTSIDE RECORDS SUMMARY | 2025-07-01 10:47 | XMS_ITS | Encounter Summary ---
Author Organization [employer] Address [address] [facility] 7t [place] [address] Care Team Providers Care Cpo Name Role Phone Mackenzie Estrada MD Primary Care Provider [phone] Casper Magaña RN Unavailable [phone] Ruth Ann Price Unavailable Unavailable Ruth Ann Price Unavailable Ruth Ann Price Unavailable Reason for Visit * Reason Comments Med Refill Encounter Details Date Type Department Care Team (Late st Contact Info) Description 08/19/2024 Refill [facility] MED[facility] [address] [place] [address] Mackenzie Estrada MD [address] [place] [address] Social History Tobacco Use Types Packs/Day Years [...] 07/09/2025 9:45 AM EST Office Visit [facility] [address] [place] [address] documented as of this encounter Goals Goal Patient Goal Type Associated Problems Recent Progress Patient-Stated? Author Quit using tobacco (cigarettes, smokeless, etc) Tobacco Use Corey Cornell, PharmD documented as of this encounter Visit Diagnoses Not on filedocumented in this encounter Additional Health Concerns Assessment Noted Time PHQ-9 Depression Total Score: 2 04/30/20 24 10:41 AM EDT documented as of this encounter Care Teams Cpo Relationship Specialty Start Date End Date Mackenzie Estrada MD [address] [place] [address] PCP - General Family Medicine 07/10/20 Casper Magaña RN [address] [place] [address] Registered Nurse Family Medicine 01/18/25 01/18/25 Ruth Ann Price 02/19/25 02/19/25 Ruth Ann rPice 02/19/25 02/28/25 Ruth Ann Price 03/29/25 04/03/25 Hemalatha Pretty Life Skills Coordinator VolunteerNurse Infection Control 01/02/25 documented as of this encounter
--- OUTSIDE RECORDS SUMMARY | 2025-07-01 10:47 | XMS_ITS | Encounter Summary ---
Author Organization [employer] Address [address] [facility] [facility] [facility] [place] [address] Care Team Providers Care Photography Coordinator Name Role Phone Mackenzie Estrada MD Primary Care Provider [phone] Casper Magaña RN Unavailable [phone] Ruth Ann Price Unavailable Unavailable Ruth Ann Price Unavailable Ruth Ann Price Unavailable Encounter Details Date Type Department Care Team (Late st Contact Info) Description 12/13/2023 Orders Only [facility] MEDICINE [address] [place] [address] Mackenzie Estrada MD [address] [place], [place] [phone] Pain in both hands Social History Tobacco [...] Description 07/09/2025 9:45 AM EST Office Visit [facility] MEDICINE [address] [place] [address] documented as of this encounter Goals Goal Patient Goal Type Associated Problems Recent Progress Patient-Stated? Author Quit using tobacco (cigarettes, smokeless, etc) Tobacco Use Corey Cornell, Bailey documented as of this encounter Visit Diagnoses Diagnosis Pain in both hands documented in this encounter Care Teams Photography Coordinator Relationship Specialty Start Date End Date Mackenzie Estrada MD [address] [place] [address] PCP - General Family Medicine 07/10/20 Casper Magaña, RN [address] [place] [address] Registered Nurse Family Medicine 01/18/25 01/18/25 Ruth Ann Price 02/19/25 02/19/25 Ruth Ann Price 02/19/25 02/28/25 Ruth Ann Price 03/29/25 04/03/25 Hemalatha Pretty Lumber Piler OperatorAstrophysics Teacher 01/02/25 documented as of this encounter
--- OUTSIDE RECORDS SUMMARY | 2025-07-01 10:47 | XMS_ITS | Encounter Summary ---
Author Organization [employer] Address [address] [facility] 7t [place] [address] Care Team Providers Care Senior J2Ee Developer Name Role Phone Mackenzie Estrada MD Primary Care Provider [phone] Casper Magaña RN Unavailable [phone] Ruth Ann Price Unavailable Unavailable Ruth Ann Price Unavailable Ruth Ann Price Unavailable Reason for Visit * Reason Comments Med Refill Encounter Details Date Type Department Care Team ([facility] Contact Info) Description 12/10/2022 Refill [facility] [address] [place] [address] Mackenzie Estrada MD 230 [place] [address] Pain in both hands Social History Tobacco [...] Encounters Date Type Department Care Team ([facility] Contact Info) Description 07/09/2025 9:45 AM EST Office Visit [facility] [address] [place] [address] documented as of this encounter Visit Diagnoses Diagnosis Pain in both hands documented in this encounter Care Teams Senior J2Ee Developer Relationship Specialty Start Date End Date Mackenzie Estrada MD 230 [facility] [place] [address] PCP - General Family Medicine 07/10/20 Casper Magaña, JENNIFER [address] [place] [address] Registered Nurse Family Medicine 01/18/25 01/18/25 Ruth Ann Price 02/19/25 02/19/25 Ruth Ann Price 02/19/25 02/28/25 Ruth Ann Price 03/29/25 04/03/25 Hemalatha Pretty Security AgentCenter Punch Operator 01/02/25 documented as of this encounter
--- OUTSIDE RECORDS SUMMARY | 2025-07-01 10:47 | XMS_ITS | Clinical Summary ---
Author Organization [facility] Address [address] [place] [address] Care Team Providers Care Intelligence Consultant Name Role Phone Sanjay Cruz MD Primary Care Provi [facility] Surgical History Surgery Date Site/Laterality Comments [...] (deep vein thrombosis); COMMENT: 01/2005 Right Subclavain watermaster current use of anticoagulant 0 DX:FDC current use of anticoagulant Acute deep vein thrombosis ( DVT) of brachial vein of right upper extremity ([facility] V24, [facility] V28) 05/09/2020 DX:Acute deep vein thrombos is (DVT) of brachial vein of right upper extremity (HCC) Axillary lymphadenopathy 05/09/2020 DX:Axil harvinder lymphadenopathy Gastroesophageal reflux disease 05/09/2020 DX:Gastroesophageal reflux disease Personal history of Hodgkin lymphoma 05/09/2020 DX:Personal history of Hodgkin lymphoma Recurrent major depressive d isorder in remission ([facility] V24) 05/09/2020 DX:Recurrent major depressiv e disorder in remission (HCC) Rheumatoid arthritis involvi ng multiple sites ([facility] V24, [facility] V28) 05/09/2020 DX:Rheumatoid arthritis invo lving multiple sites (HCC) Hodgkin's disease, nodular s clerosis, of lymph nodes of multiple sites ([facility] V24, [facility] V28) DX:Hodgkin's disease, nodul ar sclerosis, of [...] age to complete this topic Care Teams Intelligence Consultant Relationship Specialty Start Date End Date Subramonia-Sanjay Espana MD [address] [place] [id number] PCP - General Internal Medicine 04/09/20
--- OUTSIDE RECORDS SUMMARY | 2025-07-01 10:47 | XMS_ITS | Encounter Summary ---
Author Organization [facility] Address [address] [facility] 7t [place] [address] Care Team Providers Care Professor Of Food Biochemistry Name Role Phone Mackenzie Estrada MD Primary Care Provider [phone] Casper Magaña RN Unavailable [phone] Ruth Ann Price Unavailable Unavailable Ruth Ann Price Unavailable Ruth Ann Price Unavailable Encounter Details Date Type Department Care Team (Late Contact Info) Description 03/04/2023 Orders Only [facility] MEDICINE [address] [place] [address] Kat Yo MD [address] [place] [address] Social History Tobacco Use Types Packs/Day Years [...] Description 07/09/2025 9:45 AM EST Office Visit [facility] [address] [place] [address] documented as of this encounter Visit Diagnoses Not on filedocumented in this encounter Care Teams Professor Of Food Biochemistry Relationship Specialty Start Date End Date Mackenzie Estrada MD [address] [place] [address] PCP - General Family Medicine 07/10/20 Casper Magaña, JENNIFER [address] [place] [address] Registered Nurse Family Medicine 01/18/25 01/18/25 Ruth Ann Price 02/19/25 02/19/25 Ruth Ann Price 02/19/25 02/28/25 Ruth Ann Price 03/29/25 04/03/25 Hemalatha Pretty Welder GasTubing Drier 01/02/25 documented as of this encounter
--- OUTSIDE RECORDS SUMMARY | 2025-07-01 10:47 | XMS_ITS | Encounter Summary ---
Author Organization [employer] Address [address] [facility] [address] 7t [place] [address] Care Team Providers Care Mainframe Systems Engineer Name Role Phone Mackenzie Estrada MD Primary Care Provider Casper Magaña RN Unavailable [phone] Ruth Ann Price Unavailable Unavailable Ruth Ann Price Unavailable Ruth Ann Price Unavailable Encounter Details Date Type Department Care Team (Late st Contact Info) Description 10/03/2023 Orders Only [facility] MEDICINE [address] [place] [address] Mackenzie Estrada MD 230 [place], [place] [phone] Bacterial vaginosis (Primary Dx) Social History Tobacco [...] Visit [facility] MEDICINE [address] [place] [address] documented as of this encounter Goals Goal Patient Goal Type Associated Problems Recent Progress Patient-Stated? Author Quit using tobacco (cigarettes, smokeless, etc) Tobacco Use Corey Cornell, Bailey documented as of this encounter Visit Diagnoses Diagnosis Bacterial vaginosis- Primary Unspecified vaginitis and vulvovaginitis documented in this encounter Care Teams Mainframe Systems Engineer Relationship Specialty Start Date End Date Mackenzie Estrada MD [address] [place] [address] PCP - General Family Medicine 07/10/20 Csaper Magaña, JENNIFER [address] [place] [address] Registered Nurse Family Medicine 01/18/25 01/18/25 Ruth Ann Price 02/19/25 02/19/25 Ruth Ann Price 02/19/25 02/28/25 Ruth Ann Price 03/29/25 04/03/25 Hemalatha Pretty Entertainment AgentLodge Sales Associate 01/02/25 documented as of this encounter
--- OUTSIDE RECORDS SUMMARY | 2025-07-01 10:47 | XMS_ITS | Encounter Summary ---
Author Organization [employer] Address 75 [facility] 7t [place] [address] Care Team Providers Care Equipment Processor Name Role Phone Mackenzie Estrada MD Primary Care Provider [phone] Ruth Ann Price Unavailable Unavailable Ruth Ann Price Unavailable Ruth Ann Price Unavailable Reason for Visit * Reason Comments Med Refill Encounter Details Date Type Department Care Team ([facility] st Contact Info) Description 02/01/2025 Refill [facility] MEDICINE [address] [place] [address] Ebony Daigle MD [address] [place], [place] [phone] Social History Tobacco Use Types Packs/Day Years [...] 9:45 AM EST Office Visit [facility] MEDICINE [address] [place] [address] documented as of this encounter Goals Goal [...] as of this encounter Care Teams Equipment Processor Relationship Specialty Start Date End Date Mackenzie Estrada MD [address] [place] [address] PCP - General Family Medicine 07/10/20 Ruth Ann Price 02/19/25 02/19/25 Ruth Ann Price 02/19/25 02/28/25 Ruth Ann Price 03/29/25 04/03/25 Hemalatha Pretty ChemistEnvironmental Journalist 01/02/25 documented as of this encounter
--- OUTSIDE RECORDS SUMMARY | 2025-07-01 10:47 | XMS_ITS | Encounter Summary ---
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
--- OUTSIDE RECORDS SUMMARY | 2025-07-01 10:47 | XMS_ITS | Encounter Summary ---
Author Organization [employer] Address [address] [facility] 7t [place] [address] Care Team Providers Care Proof Sorter Name Role Phone Mackenzie Estrada MD Primary Care Provider [phone] Casper Magaña RN Unavailable [phone] Ruth Ann Price Unavailable Unavailable Ruth Ann Price Unavailable Ruth Ann Price Unavailable Reason for Visit * Reason Comments Med Refill Encounter Details Date Type Department Care Team (Late st Contact Info) Description 02/08/2023 Refill [facility] MEDICINE [address] [place] [address] Mackenzie Estrada MD 230 [place] [address] Pain in both hands Social History Tobacco [...] EST Office Visit [facility] MEDICINE [address] [place] [address] documented as of this encounter Visit Diagnoses Diagnosis Pain in both hands documented in this encounter Care Teams Proof Sorter Relationship Specialty Start Date End Date Mackenzie Estrada MD [address] [place] [address] PCP - General Family Medicine 07/10/20 Casper Magaña RN [address] [place] [address] Registered Nurse Family Medicine 01/18/25 01/18/25 Ruth Ann Price 02/19/25 02/19/25 Ruth Ann Price 02/19/25 02/28/25 Ruth Ann Price 03/29/25 04/03/25 Hemalatha Pretty Pattern MarkerArchery Instructor 01/02/25 documented as of this encounter
--- OUTSIDE RECORDS SUMMARY | 2025-07-01 10:47 | XMS_ITS | Encounter Summary ---
Author Organization [employer] Address 75 [facility] 7t [place] [address] Care Team Providers Care Clay Caster Name Role Phone Mackenzie Estrada MD Primary Care Provider [phone] Reason for Visit * Reason Comments Med Refill Encounter Details Date Type Department Care Team ([facility] Contact Info) Description 04/09/2025 Refill [facility] MEDICINE [address] [place] [address] Sisi Kennedy FNP [address] [place] [address] Seborrheic dermatitis Social History Tobacco Use Types [...] [facility] MEDICINE [address] [place] [address] documented as of this encounter Goals Goal [...] documented as of this encounter Care Teams Clay Caster Relationship Specialty Start Date End Date Mackenzie Estrada MD 230 [place] [address] PCP - General Family Medicine 07/10/20 Hemalatha Pretty Customer Service RepresentativeLoss Claim Clerk 01/02/25 documented as of this encounter
--- OUTSIDE RECORDS SUMMARY | 2025-07-01 10:47 | XMS_ITS | Encounter Summary ---
Author Organization [employer] Address [address] [facility] 7t [place] [address] Care Team Providers Care Manager Loan Name Role Phone Mackenzie Estrada MD Primary Care Provider [phone] Ruth Ann Price Unavailable Unavailable Ruth Ann Price Unavailable Ruth Ann Price Unavailable Reason for Visit * Reason Comments Med Refill Encounter Details Date Type Department Care Team ([facility] st Contact Info) Description 01/24/2025 Refill [facility] MEDICINE [address] [place] [address] Ebony Daigle MD 230 [place], [place] [phone] Rheumatoid arthritis involving multiple sites with positive rheumatoid factor ([facility]) Social History Tobacco Use Types Packs/Day Years [...] 9:45 AM EST Office Visit [facility] MEDICINE [address] [place] [address] documented as of this encounter Goals Goal [...] as of this encounter Care Teams Manager Loan Relationship Specialty Start Date End Date Mackenzie Estrada MD [address] [place] [address] PCP - General Family Medicine 07/10/20 Ruth Ann Price 02/19/25 02/19/25 Ruth Ann Price 02/19/25 02/28/25 Ruth Ann Price 03/29/25 04/03/25 Hemalatha Pretty Senior Nuclear Medicine TechnologistMulti Disciplined Language Analyst 01/02/25 documented as of this encounter
--- OUTSIDE RECORDS SUMMARY | 2025-07-01 10:47 | XMS_ITS | Encounter Summary ---
Author Organization [employer] Address [address] [facility] 7t [place] [address] Care Team Providers Care Clothes Ironer Name Role Phone Mackenzie Estrada MD Primary Care Provider [phone] Casper Magaña RN Unavailable [phone] Ruth Ann Price Unavailable Unavailable Ruth Ann Price Unavailable Ruth Ann Price Unavailable Reason for Visit * Reason Comments Med Refill Encounter Details Date Type Department Care Team (Late st Contact Info) Description 11/18/2023 Refill [facility] MEDICINE [address] [place] [address] Mackenzie Estrada MD [address] [place], [place] [phone] Pain in both hands Social History Tobacco [...] Description 07/09/2025 9:45 AM EST Office Visit [facility] MEDICINE [address] [place] [address] documented as of this encounter Goals Goal Patient Goal Type Associated Problems Recent Progress Patient-Stated? Author Quit using tobacco (cigarettes, smokeless, etc) Tobacco Use Corey Cornell, PharmD documented as of this encounter Visit Diagnoses Diagnosis Pain in both hands documented in this encounter Care Teams Clothes Ironer Relationship Specialty Start Date End Date Mackenzie Estrada MD [address] [place] [address] PCP - General Family Medicine 07/10/20 Casper Magaña, JENNIFER [address] [place] [address] Registered Nurse Family Medicine 01/18/25 01/18/25 Ruth Ann Price 02/19/25 02/19/25 Ruth Ann Price 02/19/25 02/28/25 Ruth Ann Price 03/29/25 04/03/25 Hemalatha Pretty Show Host/HostessPress Room Supervisor 01/02/25 documented as of this encounter
--- OUTSIDE RECORDS SUMMARY | 2025-07-01 10:47 | XMS_ITS | Encounter Summary ---
Author Organization [employer] Address [address] [facility] 7t [place] [address] Care Team Providers Care Lockstitch Tunnel Elastic Operator Name Role Phone Mackenzie Estrada MD Primary Care Provider [phone] Casper Magaña RN Unavailable [phone] Ruth Ann Price Unavailable Unavailable Ruth Ann Price Unavailable Ruth Ann Price Unavailable Reason for Referral * Imaging (Routine) - Closed Specialty Diagnoses / Procedures Referred By Contac t Referred To Contact Radiology Diagnoses Abnormal ultrasound of pelvis Procedures MR Pelvis w/ and w/o Contrast Mackenzie Estrada MD [address] [place] [address] Phone: tel: fax: [address] [address] Phone: tel: fax: Referral ID Status Reason Start Date Expiration Date Visits Re quested Visits Authorized [id number] Closed 10/31/2023 10/30/2024 1 1 Encounter Details Date Type Department Care Team (Late st Contact Info) Description 10/31/2023 Orders Only [facility] MEDICINE [address] [place], [place] [phone] Mackenzie Estrada MD [address] [place], [place] [phone] Abnormal ultrasound of pelvis (Primary Dx) Social [...] which I need to talk to her paper cup handle machine operator about. Thank you! documented in this encounter Plan of Treatment Upcoming Encounters Date Type Department Care Team (Late st Contact Info) Description 07/09/2025 9:45 AM EST Office Visit [facility] [address] [place] [address] documented as of this encounter Goals Goal [...] PM EDT Narrative 12/07/2023 9:11 AM EDT [address] [address] Magnetic Resonance Report Signed Patient: Ginette Arceo MR #: [id number] : 1975 Acct:[id number] Age/Sex: 48 / F ADM Date: 11/25/23 Loc: HO.MRI Attending Dr: Mackenzie Estrada MD Ordering Physician: Mackenzie Estrada Date of Service: 11/25/23 Procedure(s): MR pelvis wo/w con Accession Number(s): [id number] cc: Mackenzie Estrada EXAMINATION: MR PELVIS WITHOUT [...] measures 7.8 x 3.6 x 4.3 cm (aexdda-st-elewbf x AP x transverse dimension). The junctional [...] in OV> 12/07/23 0907 DD/ 1505 TD/TT: Machine Accountant: PD Procedure Note Donotuseinterpreter, Image - 12/07/[address] [address] Magnetic Resonance Report Signed Patient: Ginette Arceo #: [id number] : 1975Acct:[id number] Age/Sex: 48 / FADM Date: 11/25/23 Loc: .MRI Attending Dr: Mackenzie Estrada MD Ordering Physician: Mackenzie Estrada Date of Service: 11/25/23 Procedure(s): MR pelvis wo/w con Accession Number(s): [id number] cc: Mackenzie Estrada EXAMINATION: MR PELVIS WITHOUT [...] measures 7.8 x 3.6 x 4.3 cm (bcbguv-ng-nnvtqx x AP x transverse dimension). The junctional [...] in OV> 12/07/23 0907 DD/ 1505 TD/TT: Machine Accountant: PD us Mackenzie Estrada MD IMG MRI PROCEDURES Final Resul t documented in this encounter Visit Diagnoses Diagnosis Abnormal ultrasound of pelvis- Primary documented in this encounter Care Teams Lockstitch Tunnel Elastic Operator Relationship Specialty Start Date End Date Mackenzie Estrada MD [address] [place] [address] PCP - General Family Medicine 07/10/20 Casper Magaña, RN [address] [place] [address] Registered Nurse Family Medicine 01/18/25 01/18/25 Ruth Ann Price 02/19/25 02/19/25 Ruth Ann Price 02/19/25 02/28/25 Ruth Ann Price 03/29/25 04/03/25 Hemalatha Pretty Brake Repair MechanicStaff Research Associate 01/02/25 documented as of this encounter
--- OUTSIDE RECORDS SUMMARY | 2025-07-01 10:47 | XMS_ITS | Encounter Summary ---
Author Organization [employer] Address 75 [facility] 7t [place] [address] Care Team Providers Care Forming Acid Dumper Name Role Phone Mackenzie Estrada MD Primary Care Provider [phone] Reason for Visit * Reason Comments Med Refill Encounter Details Date Type Department Care Team ([facility] Contact Info) Description 04/07/2025 Refill [facility] MEDICINE [address] [place] [address] Mackenzie Estrada MD 230 [place] [address] Social History Tobacco Use Types Packs/Day Years [...] 9:45 AM EST Office Visit [facility] MEDICINE [address] [place] [address] documented as of this encounter Goals Goal Patient Goal Type Associated Problems Recent Progress Patient-Stated? Author Quit using tobacco (cigarettes, smokeless, etc) Tobacco Use No Corey Lin, PharmD documented as of this encounter Visit Diagnoses Not on filedocumented in this encounter Additional Health Concerns Assessment Noted Time PHQ-9 Depression Total Score: 6 04/03/20 11:40 AM EDT documented as of this encounter Care Teams Forming Acid Dumper Relationship Specialty Start Date End Date Mackenzie Estrada MD [address] [place] [address] PCP - General Family Medicine 07/10/20 Hemalatha Pretty Speech Communication ProfessorGame Preserve Manager 01/02/25 documented as of this encounter
--- OUTSIDE RECORDS SUMMARY | 2025-07-01 10:47 | XMS_ITS | Encounter Summary ---
Author Organization [employer] Address [address] [facility] [address] 7t [place] [address] Care Team Providers Care Paint Preparer Name Role Phone Mackenzie Estrada MD Primary Care Provider [phone] Ruth Ann Price Unavailable Unavailable Ruth Ann Price Unavailable Ruth Ann Price Unavailable Reason for Visit * Reason Comments Med Refill Encounter Details Date Type Department Care Team ([facility] st Contact Info) Description 01/24/2025 Refill [facility] [address] [place] [address] Kat Yo MD [address] [place] [address] Rheumatoid arthritis involving right hand with positive [...] [facility] MEDICINE [address] [place] [address] documented as of this encounter Goals Goal Patient Goal Type Associated Problems Recent Progress Patient-Stated? 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
--- OUTSIDE RECORDS SUMMARY | 2025-07-01 10:47 | XMS_ITS | Clinical Summary ---
Author Organization [employer] Address [address] [facility] [address] [place] [address] Care Team Providers Care Licensed Funeral Director And Embalmer Name Role Phone Mackenzie Estrada MD Primary Care Provider [phone] Allergies Active Allergy Reactions Criticality Noted Date Comments Bow (Diagnostic) 05/23/2020 Bow Oil Anaphylaxis High 07/19/2022 Morphine 06/02/2015 Other [...] 07/01/20 22 Active Sharps Container (GUARDIAN Sharps Therapy Technician) misc 06/15/20 22 Active Vitamin D High Potency 25 MCG (1000 UT) capsule Take 25 mcg by mouth in the morning. 12/11/19 23 Active beta carotene (vitamin A) 3 MG (53727 UT) capsule Take by mouth in the [...] MG tabletIndicati ons:NSTEMI (non-ST elevated myocardial infarction) ([facility]) Take 1 tablet (75 mg) [...] collapse of femoral head present on x-ray ([facility]),Rheumato id arthritis involving multiple sites with positive rheumatoid factor (CMS/HCC) ([facility]),Chronic low back pain, unspecified back pain laterality, unspecified whether sciatica present,Long-t erm current use of opiate analgesic Take 1 tablet by mouth every 6 (six) hours if needed for severe pain for up to 28 days. 112 tablet 06/07/20 25 025 Active ezetimibe (Zetia) 10 MG tabletIndicati ons:NSTEMI (non-ST elevated myocardial infarction) ([facility]) Take 10 mg by mouth in the morning. 06/06/20 25 Active folic acid (Folvite) 1 MG tabletIndicati ons:Rheumatoid arthritis involving multiple sites with positive rheumatoid factor (CMS/HCC) ([facility]) Take 1 tablet (1,000 mcg) [...] antibiotics. Patient should continue RA treatment with stamp pad finisher, avoid trauma to elbows. Cervical paraspinal muscle spasm 01/24/2025 Long-term current use of opiate analgesic 2024 Overview (05/14/2025): Medication: Percocet 7.5/325mg Q6H PRN Indication: Rheumatoid arthritis Last CLOTHES MODEL Agreement: 05/14/25 Tier: II (Q3 months visits), [...] 8:21 AM EST): Has Narcan at home CLOTHES MODEL agreement UTD Seeing group pain visits for CLOTHES MODEL Assessment & Plan (09/11/2024 5:03 PM EST): [...] ng right hand with positive rheumatoid factor ([facility]) 01/26/2024 Overview (08/14/2024): - Following [...] to go back to her previous dose, CLOTHES MODEL nurse informed about my plan, I instructed [...] tab Q6 h -I called today her Circuit Breaker Supervisor # [phone] --got apt and requested transportation to [facility] RN -apt w stamp pad finisher in 2 days this Tuesday03/08/2025 at 1 h 40 at [address] [facility] [address] -start prednisone 20 mg [...] thrombosis) 05/23/2020 Overview (09/28/2023): 01/2005 Right Subclavain half-way current use of anticoagulant 0 Personal history [...] not as effective -I spoke today with [facility] staff today ( Shahla) and confirmed they do have remdesivir which will be the best options for tx for this pt , ER at [facility] are expecting pt for evaluation. Also pt [...] per Rheumatology. Rx sent to [facility] and they will continue refill [...] Description 06/21/2025 10:20 AM EST Office Visit [facility] [address] [place] [phone] Name, MD Mark Bilateral hand pain (Primary Dx); Bilateral hand swelling; Swelling of both wrists; Rheumatoid arthritis involving multiple sites, unspecified whether rheumatoid factor present ([facility]) ([facility]) 06/21/2025 Travel 06/17/[address] [address] Mackenzie Estrada MD Medication Question 06/12/2025 Orders Only [facility] External Provider, [facility] 06/07/2025 3:45 PM EST Office Visit [address] [address] Mackenzie Estrada MD Bilateral impacted cerumen (Primary Dx); 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 (HCC); Rheumatoid arthritis involving multiple sites with positive rheumatoid factor (CMS/HCC) ([facility]); Soft tissue lesion of elbow region; Chronic low back pain, unspecified back pain laterality, unspecified whether sciatica present; Tobacco dependence; Class 1 obesity with serious comorbidity and body mass index (BMI) of 33.0 to 33.9 in adult, unspecified obesity type; half-way current use of anticoagulant; Personal history of Hodgkin lymphoma; NSTEMI (non-ST elevated myocardial infarction) ([facility]); Long-term current use of opiate analgesic 06/07/2025 Travel 06/04/[address] [address] Mackenzie Estrada MD 05/17/[address] [address] Mackenzie Estrada MD notes 05/17/[address] [address] Mackenzie Estrada MD Preop notes; Call Back Request 05/16/2025 10:30 AM EDT Office Visit [address] [address] Aura Vu NP Pre-op examination (Primary Dx) 05/16/2025 Orders Only GENERIC EXTERNAL DATA DEPARTMENT Provider, Generic External Data 05/16/2025 Travel 05/14/2025 1:00 PM EDT Office Visit [facility] [address] [place] [phone] Raoul Hills MD Precordial pain (Primary Dx); Chest pain, unspecified type 05/14/2025 9:45 AM EDT Office Visit [address] [address] Sisi Kennedy FNP Rheumatoid arthritis involving multiple sites with positive rheumatoid factor (CMS/HCC) ([facility]) (Primary Dx); Long-term current use of opiate analgesic; NSTEMI (non-ST elevated myocardial infarction) ([facility]) 05/14/[address] [address] Mackenzie Estrada MD Chartprep 05/14/2025 Refill [facility] [address] [place] [address] Kaylene Samano RN 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 ([facility]) 05/14/2025 Travel 05/14/2025 Refill [facility] [address] [place] [address] Mackenzie Estrada MD Subacute cough 05/09/2025 Telephone [facility] [address] [place] [address] Mackenzie Estrada MD Pre-op Exam 04/17/[address] [address] Mackenzie Estrada MD Med Refill 04/16/2025 Refill [facility] [address] [place] [address] Mackenzie Estrada MD 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 ([facility]) 04/15/2025 Refill [facility] [address] [place] [address] Mackenzie Estrada MD 04/12/2025 Refill [facility] [address] [place] [address] Mackenzie Estrada MD 04/11/2025 Refill [facility] [address] [place] [address] Mackenzie Estrada MD 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 ([facility]) 04/09/2025 10:40 AM EDT Office Visit [facility] [address] [place] [phone] David Jensen MD Nodule of skin of both upper extremities (Primary Dx) 04/09/2025 Orders Only [facility] [address] [place] [address] David Jensen MD 04/09/2025 Refill [facility] [address] [place] [address] Sisi Kennedy FNP Seborrheic dermatitis 04/09/2025 Travel 04/09/2025 Telephone [facility] [address] [place] [address] Mackenzie Estrada MD Nurse Triage 04/07/[address] [address] Mackenzie Estrada MD 04/05/2025 Results Follow-Up [facility] [address] [place] [address] Sisi Kennedy FNP CBC auto differential 04/04/2025 Results Follow-Up [address] [address] Marychuy Bonilla, RHONA XR Elbow 3+ Views Left 04/04/2025 Orders Only GENERIC EXTERNAL DATA DEPARTMENT Provider, Generic External Data 04/03/2025 11:15 AM EDT Office Visit [address] [address] Sisi Kennedy FNP Nodule of skin of both upper extremities (Primary Dx) 04/03/2025 Patient Outreach [facility] [address] [place] [address] Mackenzie Estrada MD Care Coordination (Communication to patient assigned CP Coordinator ) 04/03/2025 Travel 04/02/[address] [address] Sisi Kennedy FNP CHART PREP from Last 3 Months Immunizations Immunization Administration [...] Office Visit [facility] [address] [place] [address] [phone] Health Maintenance Due Date Last Done Comments [...] smokeless, etc) Tobacco Use Corey Cornell PharmD Procedures Procedure Name Priority Date/Time Associated Diagnosis Comments ECG 12-LEAD Routine 06/29/2025 11:51 AM EST Pre-op examination STRESS TEST WITH MYOCARDIAL PERFUSION Routine 06/12/2025 [...] Recently Relevant to Health Maintenance Results * ECG 12 lead (06/29/2025 11:51 AM EST) Only the most recent of2 resultswithin the time period is included. Narrative Appram, MARY Chavarria - 06/29/2025 11:51 AM EST HR 57 bpm, left axis deviation, LAFB Aura Vu NP ECG ORDERABLES Final Result * Stress test with myocardial perfusion (06/12/2025 9:00 AM EST) 06/12/2025 9:00 AM EST Narrative [facility] - 06/13/2025 3:47 PM EST [address] [address] Nuclear Medicine Report Signed Patient: Ginette Arceo MR #: [id number] : 1975 Acct:[id number] Age/Sex: 49 / F ADM Date: 06/12/25 Loc: JOSE[facility] Attending Dr: More VAIL Ordering Physician: More Liz Date of Service: 06/12/25 Procedure(s): NM cardiolite stress test Accession Number(s): [id number] cc: More Liz; Mackenzie Estrada Reason for [...] by: Robin Felton MD 06/13/2025 03:[address] [facility] Dictated By: Robin Felton MD Signed By: <Electronically signed by Robin Felton MD in OV> 06/13/25 1544 DD/ 0900 TD/TT: 06/13/25 0840 Brick Paving Checker: Procedure Note Donotuseinterpreter, Image - 06/13/2025 [place] [address] Nuclear Medicine Report Signed Patient: Ginette ArceoMR #: [id number] : 1975Acct:[id number] Age/Sex: 49 / FADM Date: 06/12/25 Loc: [facility] Attending Dr: More VAIL Ordering Physician: More Liz Date of Service: 06/12/25 Procedure(s): NM cardiolite stress test Accession Number(s): [id number] cc: More Liz; Mackenzie Estrada Reason for [...] by: Robin Felton MD 06/13/2025 03:[address] [facility] Dictated By: Robin Felton MD Signed By: <Electronically signed by Robin Felton MD in OV> 06/13/25 1544 DD/ 0900 TD/TT: 06/13/25 0840 Brick Paving Checker: us [facility] External Provider CV STRE SS PROCEDURES Final Result [facility] [address] [place] [phone] * CBC auto differential (05/16/2025 1:03 PM EDT) Only the most recent of4 resultswithin the time period is included. White Blood Count 6.1 4.8 - 10.8 X10*3/uL [facility] Red Blood Count 4.26 4.20 - 5.50 X10*6/uL [facility] Hemoglobin 13.0 12.0 - 16.0 g/dl [facility] Hematocrit 40.2 37.0 - 47.0 % [facility] Mean Corpuscular Volume 94.4 80.0 - 98.0 fL [facility] Mean Corpuscular Hemoglobin 30.5 27.0 - 33.0 pg [facility] Mean Corpuscular HGB Conc 32.3 31.0 - 35.0 g/dl [facility] Red Cell Distribution Width 14.6 11.0 - 16.0 % [facility] Platelet Count 227 160 - 400 X10*3/uL [facility] Mean Platelet Volume 10.3 9.4 - 12.3 fL [facility] Neutrophils Percent Auto 56.1 45 - 73 % [facility] Imm Gran Pct Auto 0.2 0.0 - 0.4 % [facility] Lymphocytes Percent Auto 36.4 20 - 40 % [facility] Monocytes Percent Auto 5.9 2 - 11 % [facility] Eosinophils Percent Auto 1.1 0 - 4 % [facility] Basophils Percent Auto 0.3 0 - 2 % [facility] NRBC Pct Auto 0.0 0.0 - 0.2 /100WBC [facility] Neutrophils Absolute Auto 3.4 2.0 - 8.3 x10*3/uL [facility] Imm Gran Abs Auto 0.01 0.00 - 0.03 X10*3/uL [facility] Lymphocytes Absolute Auto 2.2 1.2 - 4.9 X10*3/uL [facility] Monocytes Absolute Auto 0.4 0.1 - 1.2 X10*3/uL [facility] Eosinophils Absolute Auto 0.1 0.0 - 0.4 X10*3/uL [facility] Basophils Absolute Auto 0.0 0.0 - 0.2 X10*3/uL [facility] NRBC Abs Auto 0.000 0.0 - 0.012 X10*3/uL [facility] Blood Venous blood specimen / Unknown 05/16/2025 1:03 PM EDT 05/16/2025 1:11 PM EDT [facility] BLOOD BANK CALENDAR CONTROL CLERK LAB BLOOD ORDERABLES Final Resu lt Performing Organization Address [facility] Co de Phone Number [facility] [address] [place] [phone] * Partial Thromboplastin Time, Activated (APTT) (05/16/2025 12:03 PM EDT) Partial Thromboplastin Time 31.1 26.7 - 34.1 SEC [facility] Blood Venous blood specimen / Unknown 05/16/2025 12:03 PM EDT 05/16/2025 1:11 PM EDT [facility] BLOOD BANK CALENDAR CONTROL CLERK LAB BLOOD ORDERABLES Final Resu lt Performing Organization Address [facility] Co de Phone Number [facility] [address] [place] [phone] * (ABNORMAL) Prothrombin Time-INR (05/16/2025 12:03 PM EDT) Prothrombin Time 13.0(H) 10.9 - 12.4 SEC [facility] INTERNATIONAL NORM RATIO 1.1 0.9 - 1.1 [facility] Comment:INTERNATIONAL NORMAL IZED RATIO [...] 05/16/2025 1:11 PM EDT us Aura Horace BLOOD BANK CALENDAR CONTROL CLERK LAB BLOOD ORDERABLES Final Resu lt Performing Organization Address [facility]/ZIP Co de Phone Number [facility] [address] [place] [phone] * (ABNORMAL) Lipid Panel, Standard (05/16/2025 12:03 PM EDT) Triglycerides 154(H) <150 mg/dL [facility] Comment:Desirable Triglyceri de: less than 150 mg/dLBorderline High Triglyceride 150-199 mg/dLHigh Triglyceride: 200-499 mg/dLVery High Triglyceride: greater than or equal to 5OO mg/dL Cholesterol 261(H) <200 mg/dL [facility] Comment:Desirable Cholestero l: less than 200 mg/dLBorderline High Cholesterol: 200-239 mg/dLHigh Cholesterol: greater than 239 mg/dL LDL Cholesterol Calculated 179(H) <100 mg/dL [facility] Comment:Desirable LDL: less than 100 mg/dLNear Optimal/Above Optimal LDL: 110- 129 mg/dLBorderline High LDL: 130-159 mg/dLHigh LDL: 160-189 mg/dLVery High LDL: greater than or equal to 190 mg/dL HDL Cholesterol 52 >40 mg/dL [facility] Comment:Desirable HDL: great er than 40 mg/dL Note: This HDL assay may give artificially low results in patients with liver disease. 05/16/2025 12:0 3 PM EDT 05/16/2025 1:31 PM EDT us Generic External Data Provider LAB BLOOD ORDERAB LES Final Result Performing Organization Address City/[facility]/ZIP Co de Phone Number [facility] [address] [place] [phone] * (ABNORMAL) Comprehensive Metabolic Panel (05/16/2025 12:03 PM EDT) Only the most recent of2 resultswithin the time period is included. Pathologist [facility] Sodium 142 135 - 145 mmol/L [facility] Potassium 4.1 3.3 - 5.1 mmol/L [facility] Chloride 107 96 - 108 mmol/L [facility] Carbon Dioxide 27 22 - 29 mmol/L [facility] Anion Gap 12 12 - 20 [facility] Urea Nitrogen (BUN) 13 9 - 16 mg/dL [facility] Creatinine, Serum 0.63 0.5 - 1.4 mg/dL [facility] Estimated Glomerular Filt Rate >60 [facility] Comment:Chronic Kidney Disea se: Estimated GFR < 60 mL/min/[id number] Kidney Disease: Estimated GFR < 15 mL/min/1.73m2 Glucose 84 60 - 115 mg/dL [facility] Calcium 9.7 8.4 - 10.2 mg/dL [facility] Bilirubin, Total 0.3 0.0 - 1.0 mg/dL [facility] Aspartate Amino Transferase 33(H) 5 - 31 U/L [facility] Alanine Aminotransferase 27 0 - 31 U/L [facility] Total Protein 9.2(H) 6.5 - 8.0 g/dL [facility] Albumin Level 4.7 3.5 - 5.0 g/dL [facility] Alkaline Phosphatase 81 39 - 117 U/L [facility] Blood Venous blood specimen / Unknown 05/16/2025 12:03 PM EDT 05/16/2025 1:31 PM EDT us Aura Vu BLOOD BANK CALENDAR CONTROL CLERK LAB BLOOD ORDERABLES Final Resu lt [facility] [address] [place] [phone] [phone] * BI Mammogram Screening Tomosynthesis Bilateral (05/15/2025 10:22 AM EDT) Anatomical Region Laterality Modality Breast Bilateral Mammography 05/15/2025 10:2 2 AM EDT Narrative 05/19/2025 7:08 AM EDT [facility] [address] [place] [address] Mammography Report Signed Patient: Ginette Arceo MR #: [id number] : 1975 Acct:[id number] Age/Sex: 49 / F ADM Date: 05/15/25 Loc: HO.MAMMO Attending Dr: Sisi Kennedy BACK PADDER Ordering Physician: Ebony Daigle MD Results: 2Be nign Date of Service: 05/15/25 Follow Up: 1 Year From Orig ina Mammogram Procedure(s): MM tomosynthesis screening BI Accession Number(s): [id number] cc: Ebony Daigle MD; Mackenzie Estrada Reason [...] 05/19/25 0705 DD/ 1022 TD/TT: 05/15/25 1052 Brick Paving Checker: Procedure Note Donotuseinterpreter, Image - 05/19/2025 [place] [facility] [address] [place], [place] [address] Mammography Report Signed Patient: Ginette ArceoMR #: [id number] : 1975Acct:[id number] Age/Sex: 49 / FADM Date: 05/15/25 Loc: HO.MAMMO Attending Dr: Sisi Kennedy BACK PADDER Ordering Physician: Ebony Daigle MDResults: 2Be nign Date of Service: 05/15/25Follow Up: 1 Year From Orig inal Mammogram Procedure(s): MM tomosynthesis screening BI Accession Number(s): [id number] cc: Ebony Daigle MD; Mackenzie Estrada Reason [...] 05/19/25 0705 DD/ 1022 TD/TT: 05/15/25 1052 Brick Paving Checker: us Ebony Daigle MD IMG BI PROCEDURES Edited [...] Unknown 05/14/2025 9:27 AM EDT Sisi Kennedy BACK PADDER POINT OF CARE TEST ENTER/EDIT ORDERABLES Edited Result - Final * Gram Stain Result (04/09/2025 12:20 PM EDT) 04/09/2025 12:2 0 PM EDT 04/10/2025 12:26 PM EDT Comment:Elbow Lt Narrative [facility] - 04/12/2025 8:06 AM EDT Gram stain results: No polys 1+ epithelial cells No organisms seen Routine Culture No growth after 2 days Specimen Source: Elbow Left David Jensen MD HISTORICAL/NON ORDERABLE LABS Fi nal Result [facility] [address] [place] [phone] * Urinalysis w/reflex microscopic (04/04/2025 10:30 AM EDT) Color Urine Yellow [facility] Appearance Urine Clear [facility] PH 5.0 5.0 - 9.0 [facility] Glucose Urine UA Negative Negative mg/dL [facility] Urine Blood Negative Negative [facility] Specific [place] - Urine 1.020 1.005 - 1.025 [facility] Urine Protein Negative Neg-Trace mg/dL [facility] Urine Ketones Negative Negative mg/dL [facility] Nitrite Urine Negative Negative [facility] Leukocyte Esterase Urine Negative Negative [facility] 04/04/2025 10:3 0 AM EDT 04/04/2025 11:09 AM EDT Narrative [facility] - 04/04/2025 11:25 AM EDT Urine, Clean Catch us Generic External Data Provider LAB URINE ORDERAB LES Final Result Performing Organization Address City/[facility]/ZIP Co de Phone Number [facility] [address] [place] [phone] * (ABNORMAL) Uric acid (04/04/2025 10:30 AM EDT) Uric Acid 6.3(H) 2.4 - 5.7 mg/dL [facility] 04/04/2025 10:3 0 AM EDT 04/04/2025 11:15 AM EDT us Generic External Data Provider LAB BLOOD ORDERAB LES Final Result Performing Organization Address [facility]/ZIP Co de Phone Number [facility] [address] [place] [phone] * Lactate Dehydrogenase (LD) (04/04/2025 10:30 AM EDT) Lactate Dehydrogenase 130 122 - 220 U/L [facility] 04/04/2025 10:3 0 AM EDT 04/04/2025 11:15 AM EDT Generic External Data Provider LAB BLOOD ORDERAB LES Final Result Performing Organization Address [facility] de Phone Number [facility] [address] [place] [phone] * Hepatic Function Panel (04/04/2025 10:30 AM EDT) Bilirubin, Direct 0.1 0.0 - 0.5 mg/dL [facility] 04/04/2025 10:3 0 AM EDT 04/04/2025 11:15 AM EDT Generic External Data Provider LAB BLOOD ORDERAB LES Final Result Performing Organization Address [facility] de Phone Number [facility] [address] [place] [phone] * XR Elbow 3+ Views Left (04/04/2025 10:14 AM EDT) Anatomical Region Laterality Modality Upper Extremities, Elbow Left Radiogr aphic Imaging 04/04/2025 10:1 4 AM EDT Narrative 04/04/2025 11:12 AM EDT [address] [address] XRay Report Signed Patient: Ginette Arceo MR #: [id number] : 1975 Acct:[id number] Age/Sex: 49 / F ADM Date: 04/04/25 Loc: KI.HHCX Attending Dr: Marychuy Bonilla NP Ordering Physician: MARYCHUY BONILLA NP Date of Service: 04/04/25 Procedure(s): XR elbow LT min 3V Accession Number(s): [id number] cc: Mackenzie Estrada; MARYCHUY BONILLA NP Reason [...] 04/04/25 1109 DD/ 1014 TD/TT: 04/04/25 1102 Brick Paving Checker: Procedure Note Donotuseinterpreter, Image - 04/04/2025 [place] [address] XRay Report Signed Patient: Ginette ArceoMR #: [id number] : 1975Acct:[id number] Age/Sex: 49 / FADM Date: 04/04/25 Loc: HO.HHCX Attending Dr: Marychuy Bonilla NP Ordering Physician: MARYCHUY BONILLA NP Date of Service: 04/04/25 Procedure(s): XR elbow LT min 3V Accession Number(s): [id number] cc: Mackenzie Estrada; MARYCHUY BONILLA NP Reason [...] 04/04/25 1109 DD/ 1014 TD/TT: 04/04/25 1102 Brick Paving Checker: Marychuy MELGOZA IMG XR PROCEDURES Final Result * Hepatitis C Ab (04/11/2024 10:26 AM EDT) Hepatitis C Antibody Nonreactive Nonreactive [facility] Comment:Antibodies to HCV no t detected; does not exclude early acuteHCV infection. Blood Venous blood specimen / Unknown 04/11/2024 10:26 AM EDT 04/11/2024 11:19 AM EDT Mackenzie Estrada MD LAB BLOOD ORDERABLES Final Res ult [facility] [address] [place] [phone] * HIV-1/2 Antigen and Antibodies, Fourth Generation, with Reflexes (04/11/2024 10:26 AM EDT) HIV AB/AG Nonreactive Nonreactive [facility] Comment:HIV-1 p24 Ag and/or HIV-1/HIV-2 Ab not detected.A test result that is nonreactive does not exclude thepossibility of exposure to or infection with HIV-1 and/orHIV-2. Nonreactive results in this assay for individualswith prior exposure to HIV-1 and/or HIV-2 may be due toantigen and antibody levels that are below the limit ofdetection of this assay.[employer] HIV Ag/Ab Combo assay result andsupplemental assay results should be interpreted inconjunction with the patient's clinical presentation,history and other laboratory results. If the results areinconsistent with clinical evidence, additional testing issuggested to confirm the result. Blood Venous blood specimen / Unknown 04/11/2024 10:26 AM EDT 04/11/2024 11:19 AM EDT Mackenzie Estrada MD LAB BLOOD ORDERABLES Final Res ult Performing Organization Address [facility] Co de Phone Number [facility] [address] [place] [address] [phone] * HPV mRNA E6/E7 w/Reflex to HPV Genotypes 16, 18/45 (09/29/2023 12:26 PM EST) HPV nRNA E6/E7 Not Detected Not Detected [facility] Comment:Methodology: Transcr iption-Mediated AmplificationThis assay detects E6/E7 viral messenger RNA (mRNA) from 14high-risk HPV types (16,18,31,33,35,39,45,51,52,56,58,59,66,68).Cervical sources are required for HPV testing.If a vaginal source from a patient who has had atotal hysterectomy with removal of cervix wassubmitted, please contact the testing laboratoryfor alternative testing options.For additional information, please refer [email or web address].ImageVision/faq/ZVT491y3(This link if provided for information/educational purposes only.)THIS TEST WAS PERFORMED AT:[facility] [place] [id number] GALVAN MD HPV mRNA E6/E7 [facility] HPV 16 RNA [facility] HPV 18/45 RNA [facility] 09/29/2023 12:2 6 PM EST 09/30/2023 11:30 AM EST Mackenzie Estrada MD LAB CYTOLOGY ORDERABLES Final Result Performing Organization Address [facility]/ZIP Co de Phone Number [facility] [address] [place] [phone] * Pap Smear (09/29/2023 12:26 PM EST) 09/29/2023 12:2 6 PM EST 09/30/2023 11:30 AM EST Narrative [facility] - 10/12/2023 4:18 PM EDT ----- ------- Name: Ginette Arceo Age/Sex: 48/F : 1975 Unit#: [id number] Attend Dr: Mackenzie Estrada Re09/29/23 Status: [facility] ----- ------- SPEC : [id number] RECD: 09/30/23-1130 STATUS: NIRMALA REOsbaldo NUM: [id number] BHAVIN: 09/29/23-[address] [facility] [address]: Mackenzie Estrada ENTERED: 09/30/23-1325 SP TYPE: Pap Smr OT DR: ORDERED: Pap Smear Interpretation Satisfactory for evaluation. Negative for intraepithelial lesion or malignancy. HPV mRNA E6/E7: NOT DETECTED This assay detects E6/E7 viral messenger RNA (mRNA) from 14 high-risk HPV types (16, 18, 31, 33, 35, 39, 45, 51, 52, 56, 58, 59, 66, 68) HPV testing performed by [facility], [place], [place]. See reference laboratory portion of the EMR for entire report. Clinical Information LMP: Heavy menstrual bleeding past two weeks Previous PAP test: Unknown date/findings Other history: Material Received ThinPrep-Cervical ----- ------- Signed (signature on file) BARB Hawley ([facility]) 10/12/23 1618 ----- ------- END OF REPORT Mackenzie Estrada MD LAB CYTOLOGY ORDERABLES Final Result [facility] [address] [place] [address] [phone] * Colonoscopy (10/28/2017) Colonoscopy Normal Normal Narrative Florence Cecilia - 10/28/2017 Recommended 10 year follow up ([facility]) Historical Provider HEALTH MAINTENANCE Edited Result - Final from Last 3 Months or Most Recently Relevant to Health Maintenance Insurance [facility] C[place] AD[place] Care Teams Licensed Funeral Director And Embalmer Relationship Specialty Start Date End Date Mackenzie Estrada MD [address] [place] [phone] PCP - General Family Medicine 07/10/20 Hemalatha Pretty Patient Transition SpecialistDirector Of Restaurant Operations 01/02/25
--- OUTSIDE RECORDS SUMMARY | 2025-07-01 10:47 | XMS_ITS | Encounter Summary ---
Author Organization [employer] Address [address] [facility] 7t [place] [address] Care Team Providers Care Vice President Of Finance Name Role Phone Mackenzie Estrada MD Primary Care Provider [phone] Casper Magaña RN Unavailable [phone] Ruth Ann Price Unavailable Unavailable Ruth Ann Price Unavailable Ruth Ann Price Unavailable Reason for Visit * Reason Comments Med Refill Encounter Details Date Type Department Care Team (Late st Contact Info) Description 10/10/2024 Refill [facility] [address] [place] [address] Mackenzie Estrada MD [address] [place] [address] 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 ([facility]) Social History Tobacco Use Types [...] 9:45 AM EST Office Visit [facility] [address] [place] [address] documented as of this encounter Goals Goal [...] documented as of this encounter Care Teams Vice President Of Finance Relationship Specialty Start Date End Date Mackenzie Estrada MD [address] [place] [address] PCP - General Family Medicine 07/10/20 Casper Magaña, RN [address] [place] [address] [place] [address] Registered Nurse Family Medicine 01/18/25 01/18/25 Ruth Ann Price 02/19/25 02/19/25 Ruth Ann Price 02/19/25 02/28/25 Ruth Ann Price 03/29/25 04/03/25 Hemalatha Pretty Guide SetterPolice Academy Program Coordinator 01/02/25 documented as of this encounter
--- OUTSIDE RECORDS SUMMARY | 2025-07-01 10:48 | XMS_ITS | Encounter Summary ---
Author Organization [employer] Address [address] [facility] 7t [place] [address] Care Team Providers Care Frankfurter Inspector Name Role Phone Mackenzie Estrada MD Primary Care Provider [phone] Casper Magaña RN Unavailable [phone] Ruth Ann Price Unavailable Unavailable Ruth Ann Price Unavailable Ruth Ann Price Unavailable Reason for Visit * Reason Comments Med Refill Encounter Details Date Type Department Care Team (Late st Contact Info) Description 07/27/2023 Refill [facility] [address] [place] [address] Name, MD Mark [address] [place] [address] Pain in both hands Social History Tobacco [...] Description 07/09/2025 9:45 AM EST Office Visit [facility] [address] [place] [address] documented as of this encounter Goals Goal Patient Goal Type Associated Problems Recent Progress Patient-Stated? Author Quit using tobacco (cigarettes, smokeless, etc) Tobacco Use Corey Cornell, KelechiD documented as of this encounter Visit Diagnoses Diagnosis Pain in both hands documented in this encounter Care Teams Frankfurter Inspector Relationship Specialty Start Date End Date Mackenzie Estrada MD [address] [place] [address] PCP - General Family Medicine 07/10/20 Casper Magaña, JENNIFER [address] [place] [address] Registered Nurse Family Medicine 01/18/25 01/18/25 Ruth Ann Price 02/19/25 02/19/25 Ruth Ann Price 02/19/25 02/28/25 Ruth nAn Price 03/29/25 04/03/25 Hemalatha Pretty Audiovisual Production SpecialistSecurities And Real Estate Director 01/02/25 documented as of this encounter
--- OUTSIDE RECORDS SUMMARY | 2025-07-01 10:48 | XMS_ITS | Encounter Summary ---
Author Organization [employer] Address [address] [facility] 7t [place] [address] Care Team Providers Care Supervisor Prep Name Role Phone Mackenzie Estrada MD Primary Care Provider [phone] Casper Magaña RN Unavailable [phone] Ruth Ann Price Unavailable Unavailable Ruth Ann Price Unavailable Ruth Ann Price Unavailable Reason for Visit * Reason Comments Med Refill Encounter Details Date Type Department Care Team (Late st Contact Info) Description 07/26/2023 Refill [facility] [address] [place] [address] Name, MD Mark [address] [place] [address] Pain in both hands Social History Tobacco [...] EST Office Visit [facility] [address] [place] [address] documented as of this encounter Goals Goal Patient Goal Type Associated Problems Recent Progress Patient-Stated? Author Quit using tobacco (cigarettes, smokeless, etc) Tobacco Use Corey Cornell, KelechiD documented as of this encounter Visit Diagnoses Diagnosis Pain in both hands documented in this encounter Care Teams Supervisor Prep Relationship Specialty Start Date End Date Mackenzie Estrada MD [address] [place] [address] PCP - General Family Medicine 07/10/20 Casper Magaña, JENNIFER [address] [place] [address] Registered Nurse Family Medicine 01/18/25 01/18/25 Ruth Ann Price 02/19/25 02/19/25 Ruth Ann Price 02/19/25 02/28/25 Ruth Ann Price 03/29/25 04/03/25 Hemalatha Pretty Functional ArchitectGandy Dancer 01/02/25 documented as of this encounter
--- OUTSIDE RECORDS SUMMARY | 2025-07-01 10:48 | XMS_ITS | Encounter Summary ---
Author Organization [employer] Address [address] [facility] [address] 7t [place] [address] Care Team Providers Care Development Eng Name Role Phone Mackenzie Estrada MD Primary Care Provider [phone] Casper Magaña RN Unavailable [phone] Ruth Ann Price Unavailable Unavailable Ruth Ann Price Unavailable Ruth Ann Price Unavailable Encounter Details Date Type Department Care Team (Late st Contact Info) Description 06/01/2023 Orders Only [facility] [address] [place] [address] Mackenzie Estrada MD [address] [place] [address] Encounter for smoking cessation counseling (Primary Dx) [...] [facility] [address] [place] [address] documented as of this encounter Goals Goal Patient Goal Type Associated Problems Recent Progress Patient-Stated? Author Quit using tobacco (cigarettes, smokeless, etc) Tobacco Use Corey Cornell, Bailey documented as of this encounter Visit Diagnoses Diagnosis Encounter for smoking cessation counseling- Primary documented in this encounter Care Teams Development Eng Relationship Specialty Start Date End Date Mackenzie Estrada MD [address] [place] [address] PCP - General Family Medicine 07/10/20 Casper Magaña, JENNIFER [address] [place] [address] Registered Nurse Family Medicine 01/18/25 01/18/25 Ruth Ann Price 02/19/25 02/19/25 Ruth Ann Price 02/19/25 02/28/25 Ruth Ann Price 03/29/25 04/03/25 Hemalatha Pretty Hvac DesignerDigital Program Manager 01/02/25 documented as of this encounter
--- OUTSIDE RECORDS SUMMARY | 2025-07-01 10:48 | XMS_ITS | Encounter Summary ---
Author Organization [employer] Address [address] [facility] 7t [place] [address] Care Team Providers Care Chucker Name Role Phone Mackenzie Estrada MD Primary Care Provider Casper Magaña RN Unavailable [phone] Ruth Ann Price Unavailable Unavailable Ruth Ann Price Unavailable Ruth Ann Price Unavailable Reason for Visit * Reason Comments Med Refill Encounter Details Date Type Department Care Team (Late st Contact Info) Description 06/02/2023 Refill [facility] [address] [place] [address] Mackenzie Estrada MD [address] [place], [place] [phone] Pain in both hands Social History Tobacco [...] EST Office Visit [facility] [address] [place] [address] documented as of this encounter Goals Goal Patient Goal Type Associated Problems Recent Progress Patient-Stated? Author Quit using tobacco (cigarettes, smokeless, etc) Tobacco Use Corey Cornell, PharmD documented as of this encounter Visit Diagnoses Diagnosis Pain in both hands documented in this encounter Care Teams Chucker Relationship Specialty Start Date End Date Mackenzie Estrada MD [address] [place] [address] PCP - General Family Medicine 07/10/20 Casper Magaña, JENNIFER [address] [place] [address] Registered Nurse Family Medicine 01/18/25 01/18/25 Ruth Ann Price 02/19/25 02/19/25 Ruth Ann Price 02/19/25 02/28/25 Ruth Ann Price 03/29/25 04/03/25 Hemalatha Pretty Fender MechanicMedical Records Receptionist 01/02/25 documented as of this encounter
--- OUTSIDE RECORDS SUMMARY | 2025-07-01 10:48 | XMS_ITS | Encounter Summary ---
Author Organization [employer] Address [address] [facility] 7t [place] [address] Care Team Providers Care Government Clerk Name Role Phone Mackenzie Estrada MD Primary Care Provider [phone] Casper Magaña RN Unavailable [phone] Ruth Ann Price Unavailable Unavailable Ruth Ann Price Unavailable Ruth Ann Price Unavailable Reason for Visit * Reason Onset Date Comments Hospital Follow-up 02/24/2024 Encounter Details Date Type Department Care Team ([facility] st Contact Info) Description 02/24/[address] [facility] [address] [place], [place] [phone] Mackenzie Estrada MD [address] [place], [place] [phone] Hospital Follow-up Social History Tobacco Use Types [...] from pt requesting a HDF appt. Hospital: [facility] Date of admission: 02/19 Discharge date: 02/23 Diagnosed: Rectal Bleeding Wallisian Speaker documented in this encounter Plan of Treatment Upcoming Encounters Date Type Department Care Team (Late st Contact Info) Description 07/09/2025 9:45 AM EST Office Visit [facility] [address] [place] [address] documented as of this encounter Goals Goal Patient Goal Type Associated Problems Recent Progress Patient-Stated? Author Quit using tobacco (cigarettes, smokeless, etc) Tobacco Use No Corey Lin, KelechiD documented as of this encounter Visit Diagnoses Not on filedocumented in this encounter Care Teams Government Clerk Relationship Specialty Start Date End Date Mackenzie Estrada MD [address] [place] [address] PCP - General Family Medicine 07/10/20 Casper Magaña, RN [address] [place] [address] Registered Nurse Family Medicine 01/18/25 01/18/25 Ruth Ann Price 02/19/25 02/19/25 Ruth Ann Price 02/19/25 02/28/25 Ruth Ann Price 03/29/25 04/03/25 Hemalatha Pretty Certified NurseKnot Saw Operator 01/02/25 documented as of this encounter
--- OUTSIDE RECORDS SUMMARY | 2025-07-01 10:48 | XMS_ITS | Encounter Summary ---
Author Organization [employer] Address [address] [facility] [address] 7t [place] [address] Care Team Providers Care Cabinet Assembler Name Role Phone Mackenzie Estrada MD Primary Care Provider [phone] Casper Magaña RN Unavailable [phone] Ruth Ann Price Unavailable Unavailable Ruth Ann Price Unavailable Ruth Ann Price Unavailable Encounter Details Date Type Department Care Team (Late st Contact Info) Description 05/10/2024 Orders Only [facility] [address] [place] [address] Mackenzie Estrada MD [address] [place] [address] Social History Tobacco Use Types Packs/Day Years [...] 9:45 AM EST Office Visit [facility] [address] [place] [address] documented as of this encounter Goals Goal [...] documented as of this encounter Care Teams Cabinet Assembler Relationship Specialty Start Date End Date Mackenzie Estrada MD [address] [place] [address] PCP - General Family Medicine 07/10/20 Casper Magaña RN [address] [place] [address] Registered Nurse Family Medicine 01/18/25 01/18/25 Ruth Ann Price 02/19/25 02/19/25 Ruth Ann Price 02/19/25 02/28/25 Ruth Ann Price 03/29/25 04/03/25 Hemalatha Pretty Manager Supply Chain PlanningClerical Adviser 01/02/25 documented as of this encounter
--- OUTSIDE RECORDS SUMMARY | 2025-07-01 10:48 | XMS_ITS | Encounter Summary ---
Author Organization [employer] Address [address] [facility] 7t [place] [address] Care Team Providers Care Curing Room Supervisor Name Role Phone Mackenzie Estrada MD Primary Care Provider Casper Magaña RN Unavailable [phone] Ruth Ann Price Unavailable Unavailable Ruth Ann Price Unavailable Ruth Ann Price Unavailable Reason for Visit * Reason Onset Date Comments Triage 11/10/2022 Encounter Details Date Type Department Care Team ([facility] st Contact Info) Description 11/10/2022 Telephone [facility] [address] [place] [address] Mackenzie Estrada MD [address] [place] [address] Triage Social History Tobacco Use Types Packs/Day [...] - 11/11/2022 11:10 AM EDT TC to [phone] via [employer] interpreters in regards to below message. Pt reports she went to [facility] since [facility] did not return her call. RN informed [...] however she has not been able to pear picker the nystatin medication because [facility] did not have it. RN asked if [facility] informed the pt they were going to order it however pt was not sure. RN placed pt on hold and called [facility] pharmacy who reports it is supposed to be arriving in store today and pt should call around 3pm to inquire if it was received and ready for pear picker. Pt verbalized understanding. RN advised pt if her rash does not resolve with medication and her pain does not resolve to call [facility] to schedule an appt for further evaluation. Pt verbalized understanding. Pt to F/U PRN. RN has printed ED note and placed in scan bin * Telephone Encounter - Chika Ingram LPN - 11/10/2022 2:30 PM EDT Triage call returned to patient with [employer] internet manager [phone] to listed number x [phone] no answer. Left message to return call to [phone]. Team Nurses tasked to follow with patient [...] Description 07/09/2025 9:45 AM EST Office Visit [facility] [address] [place] [address] documented as of this encounter Visit Diagnoses Not on filedocumented in this encounter Care Teams Curing Room Supervisor Relationship Specialty Start Date End Date Mackenzie Estrada MD [address] [place] [address] PCP - General Family Medicine 07/10/20 Casper Magaña, JENNIFER [address] [place] [address] Registered Nurse Family Medicine 01/18/25 01/18/25 Ruth Ann Price 02/19/25 02/19/25 Ruth Ann Price 02/19/25 02/28/25 Ruth Ann Price 03/29/25 04/03/25 Hemalatha Pretty Lanolin Plant OperatorDirector Of Recruitment And Admissions 01/02/25 documented as of this encounter
--- OUTSIDE RECORDS SUMMARY | 2025-07-01 10:48 | XMS_ITS | Encounter Summary ---
Author Organization [employer] Address [address] [facility] [address] 7t [place] [address] Care Team Providers Care Senior Speech Pathologist Name Role Phone Mackenzie Estrada MD Primary Care Provider [phone] Casper Magaña RN Unavailable [phone] Ruth Ann Price Unavailable Unavailable Ruth Ann Price Unavailable Ruth Ann Price Unavailable Encounter Details Date Type Department Care Team (Late st Contact Info) Description 04/10/2024 Orders Only [facility] [address] [place] [address] Mackenzie Estrada MD [address] [place] [address] Social History Tobacco Use Types Packs/Day Years [...] 9:45 AM EST Office Visit [facility] [address] [place] [address] documented as of this encounter Goals Goal Patient Goal Type Associated Problems Recent Progress Patient-Stated? Author Quit using tobacco (cigarettes, smokeless, etc) Tobacco Use Corey Cornell, KelechiD documented as of this encounter Visit Diagnoses Not on filedocumented in this encounter Care Teams Senior Speech Pathologist Relationship Specialty Start Date End Date Mackenzie Estrada MD [address] [place] [address] PCP - General Family Medicine 07/10/20 Casper Magaña, JENNIFER [address] [place] [address] Registered Nurse Family Medicine 01/18/25 01/18/25 Ruth Ann Price 02/19/25 02/19/25 Ruth Ann Price 02/19/25 02/28/25 Ruth Ann Price 03/29/25 04/03/25 Hemalatha Pretty Recording Studio InternshipTrim Die Maker 01/02/25 documented as of this encounter
--- OUTSIDE RECORDS SUMMARY | 2025-07-01 10:48 | XMS_ITS | Encounter Summary ---
Author Organization [employer] Address [address] [facility] 7t [place] [address] Care Team Providers Care Customer Service Administrator Name Role Phone Mackenzie Estrada MD Primary Care Provider [phone] Casper Magaña RN Unavailable Ruth Ann Price Unavailable Unavailable Ruth Ann Price Unavailable Ruth Ann Price Unavailable Reason for Visit * Reason Comments Med Refill Encounter Details Date Type Department Care Team (Late st Contact Info) Description 07/21/2023 Refill [facility] [address] [place] [address] Name, MD Mark [address] [place] [address] Pain in both hands Social History Tobacco [...] 9:45 AM EST Office Visit [facility] [address] [place] [address] documented as of this encounter Goals Goal Patient Goal Type Associated Problems Recent Progress Patient-Stated? Author Quit using tobacco (cigarettes, smokeless, etc) Tobacco Use Corey Cornell, KelechiD documented as of this encounter Visit Diagnoses Diagnosis Pain in both hands documented in this encounter Care Teams Customer Service Administrator Relationship Specialty Start Date End Date Mackenzie Estrada MD [address] [place] [address] PCP - General Family Medicine 07/10/20 Casper Magaña, JENNIFER [address] [place] [address] Registered Nurse Family Medicine 01/18/25 01/18/25 Ruth Ann Price 02/19/25 02/19/25 Ruth Ann Price 02/19/25 02/28/25 Ruth Ann Price 03/29/25 04/03/25 Hemalatha Pretty Rip SawyerHeat Treating Bluer 01/02/25 documented as of this encounter
--- OUTSIDE RECORDS SUMMARY | 2025-07-01 10:48 | XMS_ITS | Encounter Summary ---
Author Organization [employer] Address [address] [facility] 7t [place] [address] Care Team Providers Care Screen Printing Cloth Spreader Name Role Phone Mackenzie Estrada MD Primary Care Provider [phone] Casper Magaña RN Unavailable [phone] Ruth Ann Price Unavailable Unavailable Ruth Ann Price Unavailable Ruth Ann Price Unavailable Reason for Visit * Reason Comments Med Refill Encounter Details Date Type Department Care Team (Late st Contact Info) Description 01/12/2024 Refill [facility] [address] [place] [address] Mackenzie Estrada MD [address] [place] [address] Rheumatoid arthritis involving multiple sites with positive rheumatoid factor ([facility]) Social History Tobacco Use Types Packs/Day [...] Visit [facility] [address] [place] [address] documented as of this encounter Goals Goal Patient Goal Type Associated Problems Recent Progress Patient-Stated? Author Quit using tobacco (cigarettes, smokeless, etc) Tobacco Use No Corey Lin, Bailey documented as of this encounter Visit Diagnoses Diagnosis Rheumatoid arthritis involving multiple sites with positive rheumatoid factor (CMS/HCC) (HCC) documented in this encounter Care Teams Screen Printing Cloth Spreader Relationship Specialty Start Date End Date Mackenzie Estrada MD [address] [place] [address] PCP - General Family Medicine 07/10/20 Casper Magaña, RN [address] [place] [address] Registered Nurse Family Medicine 01/18/25 01/18/25 Ruth Ann Price 02/19/25 02/19/25 Ruth Ann Price 02/19/25 02/28/25 Ruth Ann Price 03/29/25 04/03/25 Hemalatha Pretty Supervisor Tile And MottleApplications Specialist 01/02/25 documented as of this encounter
--- OUTSIDE RECORDS SUMMARY | 2025-07-01 10:48 | XMS_ITS | Encounter Summary ---
Author Organization [employer] Address [address] [facility] 7t [place] [address] Care Team Providers Care Fiscal Assistant Name Role Phone Mackenzie Estrada MD Primary Care Provider [phone] Ruth Ann Price Unavailable Reason for Visit * Reason Comments Med Refill Encounter Details Date Type Department Care Team ([facility] st Contact Info) Description 03/14/2025 Refill [facility] [address] [place] [address] Livia Amos MD [address] [place] [address] 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 [...] Description 07/09/2025 9:45 AM EST Office Visit [facility] [address] [place] [address] documented as of this encounter Goals Goal [...] documented as of this encounter Care Teams Fiscal Assistant Relationship Specialty Start Date End Date Mackenzie Estrada MD [address] [place] [address] PCP - General Family Medicine 07/10/20 Ruth Ann Price 03/29/25 04/03/25 Hemalatha Pretty Auto Transport DriverVolleyball Player 01/02/25 documented as of this encounter
--- OUTSIDE RECORDS SUMMARY | 2025-07-01 10:48 | XMS_ITS | Encounter Summary ---
Author Organization [facility] Address [address] [facility] 7t [place] [address] Care Team Providers Care Automatic Grinding Machine Operator Name Role Phone Mackenzie Estrada MD Primary Care Provider [phone] Casper Magaña RN Unavailable [phone] Ruth Ann Price Unavailable Unavailable Ruth Ann Price Unavailable Ruth Ann Price Unavailable Reason for Visit * Reason Comments Med Refill Encounter Details Date Type Department Care Team ([facility] Contact Info) Description 08/25/2022 Refill [facility] [address] [place] [address] Mackenzie Estrada MD [address] [place] [address] Pain in both hands Social History Tobacco [...] Care Team ([facility] Contact Info) Description 07/09/2025 9:45 AM EST Office Visit [facility] [address] [place] [address] documented as of this encounter Visit Diagnoses Diagnosis Pain in both hands documented in this encounter Care Teams Automatic Grinding Machine Operator Relationship Specialty Start Date End Date Mackenzie Estrada MD [address] [place] [address] PCP - General Family Medicine 07/10/20 Casper Magaña, JENNIFER [address] [place] [address] Registered Nurse Family Medicine 01/18/25 01/18/25 Ruth Ann Prcie 02/19/25 02/19/25 Ruth Ann Price 02/19/25 02/28/25 Ruth Ann Price 03/29/25 04/03/25 Hemalatha Pretty Options AdvisorErgonomics Consultant 01/02/25 documented as of this encounter
--- OUTSIDE RECORDS SUMMARY | 2025-07-01 10:48 | XMS_ITS | Encounter Summary ---
Author Organization [facility] Address [address] [facility] 7t [place] [address] Care Team Providers Care Spark Tester Name Role Phone Mackenzie Estrada MD Primary Care Provider [phone] Casper Magaña RN Unavailable [phone] Ruth Ann Price Unavailable Unavailable Ruth Ann Price Unavailable Ruth Ann Price Unavailable Encounter Details Date Type Department Care Team (Late Contact Info) Description 03/29/[address] [facility] MEDICINE [address] [place] [address] [phone] Cecilia Henriquez Social History Tobacco Use Types [...] [facility] [address] [place], [place] [phone] documented as of this encounter Procedures Procedure Name Priority Date/Time Associated Diagnosis Comments HM COLONOSCOPY Routine 10/28/2017 documented in this encounter Results * Colonoscopy (10/28/2017) Colonoscopy Normal Normal Narrative Cecilia Henriquez - 10/28/2017 Recommended 10 year follow up ([facility]) us Historical Provider HEALTH MAINTENANCE Edited Result - Final documented in this encounter Visit Diagnoses Not on filedocumented in this encounter Care Teams Spark Tester Relationship Specialty Start Date End Date Mackenzie Estrada MD [address] [place], [place] [phone] PCP - General Family Medicine 07/10/20 Casper Magaña, JENNIFER [address] [place], [place] [phone] Registered Nurse Family Medicine 01/18/25 01/18/25 Ruth Ann Price 02/19/25 02/19/25 Ruth Ann Price 02/19/25 02/28/25 Ruth Ann Price 03/29/25 04/03/25 Hemalatha Pretty Business Process ArchitectHeader Set Up Operator 01/02/25 documented as of this encounter
--- OUTSIDE RECORDS SUMMARY | 2025-07-01 10:48 | XMS_ITS | Encounter Summary ---
Author Organization [employer] Address [address] [facility] 7t [place] [address] Care Team Providers Care Wood Milling Machine Hand Name Role Phone Mackenzie Estrada MD Primary Care Provider [phone] Casper Magaña RN Unavailable [phone] Ruth Ann Price Unavailable Unavailable Ruth Ann Price Unavailable Ruth Ann Price Unavailable Reason for Visit * Reason Comments Med Refill Encounter Details Date Type Department Care Team (Late st Contact Info) Description 06/03/2023 Refill [facility] MED[facility]INE [address] [place] [address] Mackenzie Estrada MD [address] [place], [place] [phone] Pain in both hands Social History Tobacco [...] 9:45 AM EST Office Visit [facility]INE [address] [place] [address] documented as of this encounter Goals Goal Patient Goal Type Associated Problems Recent Progress Patient-Stated? Author Quit using tobacco (cigarettes, smokeless, etc) Tobacco Use Corey Cornell, PharmD documented as of this encounter Visit Diagnoses Diagnosis Pain in both hands documented in this encounter Care Teams Wood Milling Machine Hand Relationship Specialty Start Date End Date Mackenzie Estrada MD [address] [place] [address] PCP - General Family Medicine 07/10/20 Casper Magaña, JENNIFER [address] [place] [address] Registered Nurse Family Medicine 01/18/25 01/18/25 Ruth Ann Price 02/19/25 02/19/25 Ruth Ann Pirce 02/19/25 02/28/25 Ruth Ann Price 03/29/25 04/03/25 Hemalatha Pretty Associate Creative DirectorDoweling Machine Operator 01/02/25 documented as of this encounter
--- OUTSIDE RECORDS SUMMARY | 2025-07-01 10:48 | XMS_ITS | Encounter Summary ---
Author Organization [employer] Address [address] [facility] 7t [place] [address] Care Team Providers Care Loader Operator Supervisor Name Role Phone Mackenzie Estrada MD Primary Care Provider Casper Magaña RN Unavailable Ruth Ann Price Unavailable Unavailable Ruth Ann Price Unavailable Ruth Ann Price Unavailable Reason for Visit * Reason Comments Med Refill Encounter Details Date Type Department Care Team (Late st Contact Info) Description 08/26/2023 Refill [facility]INE [address] [place] [address] Sisi Kennedy, FARHEEN [address] [place] [address] Viral upper respiratory tract infection Social History [...] Visit [facility] MED[facility]INE [address] [place] [address] documented as of this encounter Goals Goal Patient Goal Type Associated Problems Recent Progress Patient-Stated? Author Quit using tobacco (cigarettes, smokeless, etc) Tobacco Use Corey Cornell, PharmD documented as of this encounter Visit Diagnoses Diagnosis Viral upper respiratory tract infection Acute upper respiratory infections of unspecified site documented in this encounter Care Teams Loader Operator Supervisor Relationship Specialty Start Date End Date Mackenzie Estrada MD [address] [place] [address] PCP - General Family Medicine 07/10/20 Casper Magaña, JENNIFER [address] [place] [address] Registered Nurse Family Medicine 01/18/25 01/18/25 Ruth Ann Price 02/19/25 02/19/25 Ruth Ann Price 02/19/25 02/28/25 Ruth Ann Price 03/29/25 04/03/25 Hemalatha Pretty Community Health Nurse SupervisorAcquisition Cost Estimator 01/02/25 documented as of this encounter
--- OUTSIDE RECORDS SUMMARY | 2025-07-01 10:48 | XMS_ITS | Encounter Summary ---
Author Organization [employer] Address [address] [facility] 7t [place] [address] Care Team Providers Care Medical Associate Name Role Phone Mackenzie Estrada MD Primary Care Provider [phone] Casper Magaña RN Unavailable [phone] Ruth Ann Price Unavailable Unavailable Ruth Ann Price Unavailable Ruth Ann Price Unavailable Reason for Visit * Reason Comments Med Refill Encounter Details Date Type Department Care Team (Late st Contact Info) Description 06/01/2023 Refill [facility] [address] [place] [address] Mackenzie Estrada MD [address] [place], [place] [phone] Pain in both hands Social History Tobacco [...] [facility] [address] [place] [address] documented as of this encounter Goals Goal Patient Goal Type Associated Problems Recent Progress Patient-Stated? Author Quit using tobacco (cigarettes, smokeless, etc) Tobacco Use Corey Cornell, PharmD documented as of this encounter Visit Diagnoses Diagnosis Pain in both hands documented in this encounter Care Teams Medical Associate Relationship Specialty Start Date End Date Mackenzie Estrada MD [address] [place] [address] PCP - General Family Medicine 07/10/20 Casper Magaña, JENNIFER [address] [place] [address] Registered Nurse Family Medicine 01/18/25 01/18/25 Ruth Ann Price 02/19/25 02/19/25 Ruth Ann Price 02/19/25 02/28/25 Ruth Ann Price 03/29/25 04/03/25 Hemalatha Pretty Cover Cutter MachineAble Seaman 01/02/25 documented as of this encounter
--- OUTSIDE RECORDS SUMMARY | 2025-07-01 10:48 | XMS_ITS | Encounter Summary ---
Author Organization [employer] Address [address] [facility] 7t [place] [address] Care Team Providers Care Chemical Inspector Name Role Phone Mackenzie Estrada MD Primary Care Provider [phone] Casper Magaña RN Unavailable [phone] Ruth Ann Price Unavailable Unavailable Ruth Ann Price Unavailable Ruth Ann Price Unavailable Reason for Visit * Reason Comments Med Refill Encounter Details Date Type Department Care Team (Late st Contact Info) Description 07/20/2024 Refill [facility] [address] [place] [address] Mackenzie Estrada MD [address] [place] [address] 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 ([facility] Social History Tobacco Use Types [...] Description 07/09/2025 9:45 AM EST Office Visit [facility] [address] [place] [address] documented as of this encounter Goals Goal [...] documented as of this encounter Care Teams Chemical Inspector Relationship Specialty Start Date End Date Mackenzie Estrada MD [address] [place] [address] PCP - General Family Medicine 07/10/20 Casper Magaña, RN [address] [place] [address] Registered Nurse Family Medicine 01/18/25 01/18/25 Ruth Ann Price 02/19/25 02/19/25 Ruth Ann Price 02/19/25 02/28/25 Ruth Ann Price 03/29/25 04/03/25 Hemalatha Pretty Newspaper Library ManagerHelp Desk Rep 01/02/25 documented as of this encounter
--- OUTSIDE RECORDS SUMMARY | 2025-07-01 10:48 | XMS_ITS | Encounter Summary ---
Author Organization [employer] Address [address] [facility] 7t [place] [address] Care Team Providers Care Cream Cheese Maker Name Role Phone Mackenzie Estrada MD Primary Care Provider [phone] Casper Magaña RN Unavailable Ruth Ann Price Unavailable Unavailable Ruth Ann Price Unavailable Ruth Ann Price Unavailable Reason for Visit * Reason Comments Med Refill Encounter Details Date Type Department Care Team (Late st Contact Info) Description 07/28/2022 Refill [facility]INE [address] [place] [address] Mackenzie Estrada MD [address] [place] [address] Pain in both hands Social History Tobacco [...] Office Visit [facility] MED[facility]INE [address] [place] [address] documented as of this encounter Visit Diagnoses Diagnosis Pain in both hands documented in this encounter Care Teams Cream Cheese Maker Relationship Specialty Start Date End Date Mackenzie Estrada MD [address] [place] [address] PCP - General Family Medicine 07/10/20 Casper Magaña RN [address] [place] [address] Registered Nurse Family Medicine 01/18/25 01/18/25 Ruth Ann Price 02/19/25 02/19/25 Ruth Ann Price 02/19/25 02/28/25 Ruth Ann Price 03/29/25 04/03/25 Hemalatha Pretty Meat ManagerNanny Babysitter 01/02/25 documented as of this encounter
--- OUTSIDE RECORDS SUMMARY | 2025-07-01 10:48 | XMS_ITS | Clinical Summary ---
Author Organization [facility] Address [address] [place] [address] Support Name Relationship Address Phone Brayden Hernandez Emergency Contact [address] [place] [address] Care Team Providers Care Chemical Packager Name Role Phone Abdullahi Lizarraga MD Primary Care Provider [phone] Allergies Active Allergy Reactions Criticality Noted Date [...] age to complete this topic Care Teams Chemical Packager Relationship Specialty Start Date End Date Abdullahi Lizarraga MD [address] [place] [address] PCP - General Nephrology 03/10/18
--- OUTSIDE RECORDS SUMMARY | 2025-07-01 10:48 | XMS_ITS | Encounter Summary ---
Author Organization [employer] Address [address] [facility] [address] 7t [place] [address] Care Team Providers Care Documentation Specialist Name Role Phone Mackenzie Estrada MD Primary Care Provider [phone] Casper Magaña RN Unavailable [phone] Ruth Ann Price Unavailable Unavailable Ruth Ann Price Unavailable Ruth Ann Price Unavailable Encounter Details Date Type Department Care Team (Late st Contact Info) Description 05/21/2024 Telephone [facility]INE [address] [place] [address] Mackenzie Estrada MD [address] [place] [address] Social History Tobacco Use Types Packs/Day Years [...] 07/09/2025 9:45 AM EST Office Visit [facility] [address] [place] [address] documented as of this encounter Goals Goal [...] documented as of this encounter Care Teams Documentation Specialist Relationship Specialty Start Date End Date Mackenzie Estrada MD [address] [place] [address] PCP - General Family Medicine 07/10/20 Casper Magaña RN [address] [place] [address] Registered Nurse Family Medicine 01/18/25 01/18/25 Ruth Ann Price 02/19/25 02/19/25 Ruth Ann Price 02/19/25 02/28/25 Ruth Ann Price 03/29/25 04/03/25 Hemalatha Pretty Chain HookerLead Network Engineer 01/02/25 documented as of this encounter
--- OUTSIDE RECORDS SUMMARY | 2025-07-01 10:48 | XMS_ITS | Encounter Summary ---
Author Organization [employer] Address [address] [facility] 7t [place] [address] Care Team Providers Care Manager Communication Name Role Phone Mackenzie Estrada MD Primary Care Provider [phone] Casper Magaña RN Unavailable [phone] Ruth Ann Price Unavailable Unavailable Ruth Ann Price Unavailable Ruth Ann Price Unavailable Reason for Visit * Reason Onset Date Comments Appointment Request 08/16/2023 Encounter Details Date Type Department Care Team ([facility] st Contact Info) Description 08/16/2023 Telephone [facility] MED[facility]INE [address] [place], [place] [phone] Mackenzie Estrada MD [address] [place], [place] [phone] Appointment Request Social History Tobacco Use Types [...] be seen today. Please contact pt @ [phone] Slovenian Speaker documented in this encounter Plan of Treatment Upcoming Encounters Date Type Department Care Team (Late st Contact Info) Description 07/09/2025 9:45 AM EST Office Visit [facility] MED[facility]INE [address] [place] [address] documented as of this encounter Goals Goal Patient Goal Type Associated Problems Recent Progress Patient-Stated? Author Quit using tobacco (cigarettes, smokeless, etc) Tobacco Use No Corey Lin, PharmD documented as of this encounter Visit Diagnoses Not on filedocumented in this encounter Care Teams Manager Communication Relationship Specialty Start Date End Date Mackenzie Estrada MD [address] [place] [address] PCP - General Family Medicine 07/10/20 Casper Magaña, RN [address] [place] [address] Registered Nurse Family Medicine 01/18/25 01/18/25 Ruth Ann Price 02/19/25 02/19/25 Ruth Ann Price 02/19/25 02/28/25 Ruth Ann Price 03/29/25 04/03/25 Hemalatha Pretty Charter Boat OperatorHead Silverman 01/02/25 documented as of this encounter
--- OUTSIDE RECORDS SUMMARY | 2025-07-01 10:48 | XMS_ITS | Encounter Summary ---
Author Organization [email or web address] Address [address] [facility] [address] 7t [place] [address] Care Team Providers Care Landscape Manager Name Role Phone Mackenzie Estrada MD Primary Care Provider [phone] Casper Magaña RN Unavailable [phone] Ruth Ann Price Unavailable Unavailable Ruth Ann Price Unavailable Ruth Ann Price Unavailable Encounter Details Date Type Department Care Team (Late st Contact Info) Description 06/03/2023 Orders Only [facility] MEDICINE [address] [place] [address] Mackenzie Estrada MD [address] [place], [place] [phone] Pain in both hands Social History Tobacco [...] EST Office Visit [facility] MED[facility]INE [address] [place] [address] documented as of this encounter Goals Goal [...] PM EST Narrative 06/03/2023 5:47 PM EDT [address] [address] XRay Report Signed Patient: Ginette Arceo MR #: [id number] : 1975 Acct:[id number] Age/Sex: 47 / F ADM Date: 06/25/23 Loc: HO.ED Attending Dr: Ordering Physician: Treasure Clemons Date of Service: 06/25/23 Procedure(s): XR chest 2V Accession Number(s): [id number] cc: Mackenzie Estrada; Treasure Clemons EXAMINATION: XR [...] in OV> 06/25/23 1230 DD/ 1215 TD/TT: Mirror Fabrication Supervisor: [facility] Procedure Note Donotuseinterpreter, Image - 06/25/[address] [address] XRay Report Signed Patient: Ginette ArceoMR #: [id number] : 1975Acct:[id number] Age/Sex: 47 / FADM Date: 06/25/23 Loc: HO.ED Attending Dr: Ordering Physician: Treasure Clemons Date of Service: 06/25/23 Procedure(s): XR chest 2V Accession Number(s): [id number] cc: Mackenzie Estrada; Treasure Clemons EXAMINATION: XR [...] in OV> 06/25/23 1230 DD/ 1215 TD/TT: Mirror Fabrication Supervisor: MAGG[facility] External Provider IMG XR PROCEDURES Edited Result - Final * (ABNORMAL) Urinalysis, Complete, with Reflex to Culture (06/03/2023 4:49 PM EDT) Color Urine Yellow [facility] Appearance Urine Clear [facility] PH 5.5 5.0 - 9.0 [facility] Glucose Urine UA Negative Negative mg/dL [facility] Urine Blood Large (3+)(A) Negative [facility] Specific Gans - Urine 1.025 1.005 - 1.025 [facility] Urine Protein Negative Neg-Trace mg/dL [facility] Urine Ketones Negative Negative mg/dL [facility] Nitrite Urine Negative Negative [facility] Leukocyte Esterase Urine Negative Negative [facility] RBC Urine >20(A) 0 - 2 /HPF [facility] Urine WBC 0-5 0 - 5 /HPF [facility] Urine Squamous Epithelial Cell 11-20 0 - 2 /HPF [facility] Urine Bacteria 1+ None Seen [facility] Hyaline Casts, Urine 0-2 0 - 2 /LPF [facility] 06/03/2023 4:49 PM EDT 06/03/2023 4:52 PM EDT Narrative [facility] - 06/03/2023 5:00 PM EDT Urine, Clean Catch Generic External Data Provider LAB URINE ORDERAB LES Final Result [facility] [address] [place] [phone] * (ABNORMAL) Urinalysis w/reflex microscopic (06/03/2023 4:49 PM EDT) Color Urine Yellow [facility] Appearance Urine Clear [facility] PH 5.5 5.0 - 9.0 [facility] Glucose Urine UA Negative Negative mg/dL [facility] Urine Blood Large (3+)(A) Negative [facility] Specific Gans - Urine 1.025 1.005 - 1.025 [facility] Urine Protein Negative Neg-Trace mg/dL [facility] Urine Ketones Negative Negative mg/dL [facility] Nitrite Urine Negative Negative [facility] Leukocyte Esterase Urine Negative Negative [facility] 06/03/2023 4:49 PM EDT 06/03/2023 4:52 PM EDT Narrative [facility] - 06/03/2023 4:57 PM EDT Urine, Clean Catch us Generic External Data Provider LAB URINE ORDERAB LES Final Result [facility] [address] [place] [address] [phone] * Influenza A B2 ID NOW (Corona) (06/03/2023 4:34 PM EDT) IDNOW SERIAL# [id number] [facility] Influenza A Negative Negative [facility] Influenza B2 Negative Negative [facility] Influenza A B2 Note See Note [facility] Comment:The Corona ID NOW In [...] GENERAL ORDERABLES Final Result Performing Organization Address City/[facility]/ZIP Co de Phone Number [facility] [address] [place] [address] [phone] * COVID-19 ID NOW (CORONA) (06/03/2023 4:34 PM EDT) IDNOW SERIAL# [id number] [facility] COVID-19 TEST Negative Negative [facility] COVID-19 NOTE See Note [facility] Comment: Results are for the identification of SARS-CoV2 RNA. TheSARS-CoV2 RNA is generally detectable in respiratory samplesduring the acute phase of infection. Positive results areindicative of the presence of SARS-CoV-2 RNA; clinicalcorrelation with patient history and other diagnosticinformation is necessary to determine patient infectionstatus. Positive results do not rule out bacterial infectionor co- infection with other viruses.Testing facilities within the [facility] and [facility] are required to report all positive [...] LAB MOLECULAR ARNAV GNOSTICS ORDERABLES Final Result [facility] [address] [place] [phone] documented in this encounter Visit Diagnoses Diagnosis Pain in both hands documented in this encounter Care Teams Landscape Manager Relationship Specialty Start Date End Date Mackenzie Estrada MD [address] [place] [address] PCP - General Family Medicine 07/10/20 Casper Magaña, JENNIFER [address] [place] [address] Registered Nurse Family Medicine 01/18/25 01/18/25 Ruth Ann Price 02/19/25 02/19/25 Ruth Ann Price 02/19/25 02/28/25 Ruth Ann Price 03/29/25 04/03/25 Hemalatha Pretty Supervisor IntermediatesInformation Systems Professor 01/02/25 documented as of this encounter
--- OUTSIDE RECORDS SUMMARY | 2025-07-01 10:48 | XMS_ITS | Encounter Summary ---
Author Organization [employer] Address [address] [facility] 7t [place] [address] Care Team Providers Care Probation Counselor Name Role Phone Mackenzie Estrada MD Primary Care Provider Casper Magaña RN Unavailable [phone] Ruth Ann Price Unavailable Unavailable Ruth Ann Price Unavailable Ruth Ann Price Unavailable Reason for Visit * Reason Onset Date Comments Error 08/16/2023 Encounter Details Date Type Department Care Team ([facility] st Contact Info) Description 08/16/2023 Telephone [facility] MEDICINE [address] [place], [place] [phone] Mackenzie Estrada MD [address] [place], [place] [phone] Error Social History Tobacco Use Types Packs/Day [...] Office Visit [facility]INE [address] [place] [address] documented as of this encounter Goals Goal Patient Goal Type Associated Problems Recent Progress Patient-Stated? Author Quit using tobacco (cigarettes, smokeless, etc) Tobacco Use Corey Cornell, KelechiD documented as of this encounter Visit Diagnoses Not on filedocumented in this encounter Care Teams Probation Counselor Relationship Specialty Start Date End Date Mackenzie Estrada MD [address] [place] [address] PCP - General Family Medicine 07/10/20 Casper Magaña, JENNIFER [address] [place] [address] Registered Nurse Family Medicine 01/18/25 01/18/25 Ruth Ann Price 02/19/25 02/19/25 Ruth Ann Price 02/19/25 02/28/25 Ruth Ann Price 03/29/25 04/03/25 Hemalatha Pretty Dry Cleaning Machine Operator HelperAssociate Professor Computer Science 01/02/25 documented as of this encounter
--- OUTSIDE RECORDS SUMMARY | 2025-07-01 10:48 | XMS_ITS | Encounter Summary ---
Author Organization [employer] Address [address] [place] [address] Care Team Providers Care Structural Welder Name Role Phone Mackenzie Estrada MD Primary Care Provider [phone] Casper Magaña RN Unavailable [phone] Ruth Ann Price Unavailable Unavailable Ruth Ann Price Unavailable Ruth Ann Price Unavailable Reason for Visit * Reason Comments Med Refill Encounter Details Date Type Department Care Team ([facility] Contact Info) Description 09/22/2022 Refill [facility] [address] [place] [id number] Sarika Palacios, RHONA [address] [place] [address] Tinea pedis of both feet Social History [...] Description 07/09/2025 9:45 AM EST Office Visit [facility] [address] [place] [address] documented as of this encounter Visit Diagnoses Diagnosis Tinea pedis of both feet documented in this encounter Care Teams Structural Welder Relationship Specialty Start Date End Date Mackenzie Estrada MD [address] [place] [address] PCP - General Family Medicine 07/10/20 Casper Magaña, JENNIFER [address] [place] [id number] Registered Nurse Family Medicine 01/18/25 01/18/25 Ruth Ann Price 02/19/25 02/19/25 Ruth Ann Price 02/19/25 02/28/25 Ruth Ann Price 03/29/25 04/03/25 Hemalatha Pretty Deployment SpecialistShellfish Bed Worker 01/02/25 documented as of this encounter
== END 2025-07-01 09:35 | disposition home or self-care (01) ==
LOC: HO.HCS 09:10
PROVIDERS: PCP General Practice; Visit Provider Nurse Practitioner Family
DX: R07.2 Precordial pain (principal); I25.10 Atherosclerotic heart disease of native coronary artery without angina pectoris; Z98.890 Other specified postprocedural states; Z95.5 Presence of coronary angioplasty implant and graft; I80.201 Phlebitis and thrombophlebitis of unspecified deep vessels of right lower extremity; E78.5 Hyperlipidemia, unspecified
CPT/HCPCS: 99213

== ENCOUNTER → 2025-07-01 09:10 | Outpatient (BNVA) | payer MEDICAID, SELFPAY | PROVIDERS: PCP General Practice; Visit Provider Nurse Practitioner Family | DX: I25.10 Atherosclerotic heart disease of native coronary artery without angina pectoris (principal); I80.201 Phlebitis and thrombophlebitis of unspecified deep vessels of right lower extremity; R07.2 Precordial pain; E78.5 Hyperlipidemia, unspecified; Z98.890 Other specified postprocedural states; Z95.5 Presence of coronary angioplasty implant and graft; Z79.01 Long term (current) use of anticoagulants; Z79.899 Other long term (current) drug therapy | CPT/HCPCS: 99212 ==

== ENCOUNTER 2025-07-17 07:59 | Day surgery (SDC) | payer MEDICAID, SELFPAY ==
--- OUTSIDE RECORDS SUMMARY | 2025-06-21 10:20 | XMS_ITS | Encounter Summary ---
Author Organization [employer] Address [address] [facility] [address] 7[address] [place] [address] Care Team Providers Care Finish Mill Operator Name Role Phone Mackenzie Estrada MD Primary Care Provider [phone] Reason for Visit * Reason Comments Hand Pain Edema Encounter Details Date Type Department Care Team ([facility] Contact Info) Description 06/21/2025 10:20 AM EST Office Visit [facility] [address] [place] [address] Name, MD Mark [address] [place] [address] Bilateral hand pain (Primary Dx); Bilateral hand swelling; Swelling of both wrists; Rheumatoid arthritis involving multiple sites, unspecified whether rheumatoid factor present (CMS/HCC) ([facility]) Social History Tobacco Use Types Packs/Day [...] Sign Reading Time Taken Comments Blood Pressure 140/90 06/21/2025 10:08 AM EST Pulse 74 06/21/2025 10:08 AM EST Temperature 36.6 C (97.8 F) 06/21/2025 10:08 AM EST Respiratory Rate 19 06/21/2025 10:0 8 AM EST Oxygen Saturation 96% 06/21/2025 10: 08 AM EST Inhaled Oxygen Concentration - - Weight 90.2 kg (198 lb 12.8 oz) 025 10:08 AM EST Height 157.5 cm (5' 2 ) 06/21/2025 10:0 8 AM EST Body Mass Index 36.36 06/21/2025 10:08 AM EST documented in this encounter Progress Notes * Mark Name, - 06/21/2025 10:20 AM EST Subjective Patient ID: Ginette Lacy is a 49 y.o. female who presents for Hand Pain and Edema. Patient presents for a sick visit with several days of a rheumatoid arthritis flare. The patient has bilateral hand and wrist swelling and pain. She has personal history of severe rheumatoid arthritis. She tells me she is not on prednisone at the moment. Hand Pain Pertinent negatives include no chest pain. Edema Pertinent negative symptoms include no abdominal pain, no chest pain, no cough, no fever and no palpitations. Review of Systems Constitutional: Negative for chills and fever. HENT: Negative for sore throat. Respiratory: Negative for cough, shortness of breath and wheezing. Cardiovascular: Negative for chest pain, palpitations and leg swelling. Gastrointestinal: Negative for abdominal pain. Musculoskeletal: Positive for arthralgias and joint swelling. Objective Vitals: 06/21/25 1008 BP: (!) 140/90 BP Location: Left arm Patient Position: Sitting BP Cuff Size: Large adult Pulse: 74 Resp: 19 Temp: 97.8 ??F (36.6 ??C) TempSrc: Temporal SpO2: 96% Weight: 198 lb 12.8 oz (90.2 kg) Height: 5' 2 (1.575 m) Physical Exam Constitutional: General: She is not in acute distress. Appearance: She is not ill-appearing. Cardiovascular: Rate and Rhythm: Normal rate and regular rhythm. Pulmonary: Effort: Pulmonary effort is normal. No respiratory distress. Musculoskeletal: Comments: Bilateral hand and wrist pain and swelling. Assessment/Plan Diagnoses and all orders for this visit: Bilateral hand pain Comments: Patient presents with rheumatoid arthritis flare. I recommended short tapering course of low-dose prednisone. She is encouraged to call or come back if she does not feel much better by next week. Bilateral hand swelling Swelling of both wrists Rheumatoid arthritis involving multiple sites, unspecified whether rheumatoid factor present (CMS/HCC) ([facility]) Other orders - predniSONE (Deltasone) 10 MG tablet; Take 1 tablet (10 mg) by mouth Once per day for 7 days, THEN0.5 tablets (5 mg) Once per day for 7 days, THEN 0.5 tablets (5 mg) every other day for 7 days. Take three tabs 12 hours prior to exam, then three tabs 2 hours prior to exam. documented in this encounter Plan of Treatment Upcoming Encounters Date Type Department Care Team (Late st Contact Info) Description 07/09/2025 9:45 AM EST Office Visit [facility] [address] [place] [address] documented as of this encounter Goals Goal Patient Goal Type Associated Problems Recent Progress Patient-Stated? Author Quit using tobacco (cigarettes, smokeless, etc) Tobacco Use No Corey Lin, KelechiD documented as of this encounter Visit Diagnoses Diagnosis Bilateral hand pain- Primary Bilateral hand swelling Swelling of both wrists Rheumatoid arthritis involving multiple sites, unspecified whether rheumatoid factor present (CMS/HCC) ([facility]) documented in this encounter Additional Health Concerns Assessment Noted Time PHQ-9 Depression Total Score: 6 04/03/20 25 11:40 AM EDT documented as of this encounter Care Teams Finish Mill Operator Relationship Specialty Start Date End Date Mackenzie Estrada MD [address] [place] [address] PCP - General Family Medicine 07/10/20 Hemalatha Pretty Dietary Service AideSupervisor [employer] 01/02/25 documented as of this encounter
--- OUTSIDE RECORDS SUMMARY | 2025-06-25 08:44 | XMS_ITS | Encounter Summary ---
Author Organization [employer] Address [address] 7[address] [place] [address] Care Team Providers Care Finance Intern Name Role Phone Mackenzie Estrada MD Primary Care Provider [phone] Ruth Ann Price Unavailable Unavailable Ruth Ann Price Unavailable Ruth Ann Price Unavailable Reason for Visit * Reason Comments Med Refill Encounter Details Date Type Department Care Team ([facility] st Contact Info) Description 01/24/2025 Refill [facility] [address] [place] [address] Kat Yo MD [address] [place] [address] Rheumatoid arthritis involving right hand with positive [...] 9:45 AM EST Office Visit [facility] [address] [place] [address] documented as of this encounter Goals Goal Patient Goal Type Associated Problems Recent Progress Patient-Stated? 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 (CMS/HCC) ([facility]) Inflammatory arthritis Unspecified inflammatory polyarthropathy documented in this encounter Additional Health Concerns Assessment Noted Time PHQ-9 Depression Total Score: 2 04/30/20 24 10:41 AM EDT documented as of this encounter Care Teams Finance Intern Relationship Specialty Start Date End Date Mackenzie Estrada MD [address] [place] [address] PCP - General Family Medicine 07/10/20 Ruth Ann Price 02/19/25 02/19/25 Ruth Ann Price 02/19/25 02/28/25 Ruth Ann Priec 03/29/25 04/03/25 Hemalatha Pretty Last Remodeler RepairerObiee Report Developer 01/02/25 documented as of this encounter
--- OUTSIDE RECORDS SUMMARY | 2025-06-25 08:44 | XMS_ITS | Clinical Summary ---
Author Organization [facility] Address [address] [place] [address] Care Team Providers Care Sketch Liner Name Role Phone Sanjay Cruz MD Primary Care [facility] Surgical History Surgery Date Site/Laterality Comments OTHER SURGICAL HISTORY 05/12/2020 Right PROCEDURE: MS BX/EXC LYMPH NODE OPEN SUPERFICIAL; COMMENT: Axillary Lymph Node biopsy- Benign Lymphoid Tissue OTHER SURGICAL HISTORY 12/19/2019 Right PROCEDURE: MS BX/EXC LYMPH NODE NEEDLE SUPERFICIAL; COMMENT: Axillary Lymph node -results were non daignostic Medical History Medical History Date Comments Anxiety DX:Anxiety Migraine DX:Migraine History of DVT (deep vein thrombosis) 05/23/2020 DX:History of DVT (deep vein thrombosis); COMMENT: 01/2005 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 Acute deep vein thrombosis ( DVT) of brachial vein of right upper extremity ([facility] V24, [facility] V28) 05/09/2020 DX:Acute deep vein thrombos is (DVT) of brachial vein of right upper extremity (HCC) Axillary lymphadenopathy 05/09/2020 DX:Axil harvinder lymphadenopathy Gastroesophageal reflux disease 05/09/2020 DX:Gastroesophageal reflux disease Personal history of Hodgkin lymphoma 05/09/2020 DX:Personal history of Hodgkin lymphoma Recurrent major depressive d isorder in remission ([facility] V24) 05/09/2020 DX:Recurrent major depressiv e disorder in remission (HCC) Rheumatoid arthritis involvi ng multiple sites ([facility] V24, [facility] V28) 05/09/2020 DX:Rheumatoid arthritis invo lving multiple sites (HCC) Hodgkin's disease, nodular s clerosis, of lymph nodes of multiple sites ([facility] V24, [facility]/HCC V28) DX:Hodgkin's disease, [...] age to complete this topic Care Teams Sketch Liner Relationship Specialty Start Date End Date Subramonia-Sanjay Espana MD [address] [place] [id number] PCP - General Internal Medicine 04/09/20
--- OUTSIDE RECORDS SUMMARY | 2025-06-25 08:44 | XMS_ITS | Encounter Summary ---
Author Organization [employer] Address [address] [facility] 7t [place] [address] Care Team Providers Care Drier Feeder Name Role Phone Mackenzie Estrada MD Primary Care Provider [phone] Reason for Visit * Reason Comments Med Refill Encounter Details Date Type Department Care Team ([facility] Contact Info) Description 04/07/2025 Refill [facility]INE [address] [place] [address] Mackenzie Estrada MD [address] [place] [address] Social History Tobacco Use Types Packs/Day Years [...] Description 07/09/2025 9:45 AM EST Office Visit [facility] [address] [place] [address] documented as of this encounter Goals Goal Patient Goal Type Associated Problems Recent Progress Patient-Stated? Author Quit using tobacco (cigarettes, smokeless, etc) Tobacco Use No Corey Lin, PharmD documented as of this encounter Visit Diagnoses Not on filedocumented in this encounter Additional Health Concerns Assessment Noted Time PHQ-9 Depression Total Score: 6 04/03/20 11:40 AM EDT documented as of this encounter Care Teams Drier Feeder Relationship Specialty Start Date End Date Mackenzie Estrada MD [address] [place] [address] PCP - General Family Medicine 07/10/20 Hemalatha Pretty Rug Receiving ClerkCyber Defense Forensics Analyst 01/02/25 documented as of this encounter
--- OUTSIDE RECORDS SUMMARY | 2025-06-25 08:44 | XMS_ITS | Encounter Summary ---
Author Organization [employer] Address [address] 7t [place] [address] Care Team Providers Care Call Box Wirer Name Role Phone Mackenzie Estrada MD Primary Care Provider [phone] Casper Magaña RN Unavailable [phone] Ruth Ann Price Unavailable Unavailable Ruth Ann Price Unavailable Ruth Ann Price Unavailable Encounter Details Date Type Department Care Team (Late st Contact Info) Description 12/13/2023 Orders Only [facility] MEDICINE [address] [place] [address] Mackenzie Estrada MD [address] [place], [place] [phone] Pain in both hands Social History Tobacco [...] Description 07/09/2025 9:45 AM EST Office Visit [facility] MEDICINE [address] [place] [address] documented as of this encounter Goals Goal Patient Goal Type Associated Problems Recent Progress Patient-Stated? Author Quit using tobacco (cigarettes, smokeless, etc) Tobacco Use Corey Cornell, Bailey documented as of this encounter Visit Diagnoses Diagnosis Pain in both hands documented in this encounter Care Teams Call Box Wirer Relationship Specialty Start Date End Date Mackenzie Estrada MD [address] [place] [address] PCP - General Family Medicine 07/10/20 Casper Magaña, RN [address] [place] [address] Registered Nurse Family Medicine 01/18/25 01/18/25 Ruth Ann Price 02/19/25 02/19/25 Ruth Ann Price 02/19/25 02/28/25 Ruth Ann Price 03/29/25 04/03/25 Hemalatha Pretty Head Well PullerMerchandise Team Manager 01/02/25 documented as of this encounter
--- OUTSIDE RECORDS SUMMARY | 2025-06-25 08:44 | XMS_ITS | Encounter Summary ---
Author Organization [employer] Address [address] [facility] 7t [place] [address] Care Team Providers Care Lining Cutter Name Role Phone Mackenzie Estrada MD Primary Care Provider [phone] Reason for Visit * Reason Onset Date Comments Medication Question 06/17/2025 Encounter Details Date Type Department Care Team ([facility] Contact Info) Description 06/17/2025 Telephone [facility] MEDICINE [address] [place], [place] [phone] Mackenzie Estrada MD [address] [place] [address] Medication Question Social History Tobacco Use Types Packs/Day Years [...] Telephone Encounter - Lucia Hyde RN - 06/20/2025 1:32 PM EST Noted. RN has generated the order, had covering provider sign (PCP on vacation) and faxed to [facility] [phone], confirmation page received. * Telephone Encounter - Cecelia Pendleton - 06/20/2025 9:01 AM EST Tc from Alexandra at [facility] general surgery requesting update on clearance on eliquis Contact Alexandra at [phone] * Telephone Encounter - Lucia Hyde RN - 06/17/2025 2:09 PM EST TC placed to [facility] GS [phone] in regards to below message. RN was informed patient will be having a excision of L elbow cyst under MAC anesthesia and they need a clearance letter to hold eliquis (5 days) prior to the surgery and when patient can resume. RN was informed surgery will not be scheduled until clearance letter is received. RN was advised order can be faxed to [phone]. Please review and advise if agreeable for patient to HOLD eliquis x5 days prior to surgery and when patient should resume Eliquis (RN will have covering sign order). * Telephone Encounter - Cecelia Pendleton - 06/17/2025 10:01 AM EST Tc from Alexandra at [facility] general surgery requesting consent to hold eliquis before surgery . Surgery date can not be booked without consent to hold medication Contact at [phone] documented in this encounter Plan of Treatment Upcoming Encounters Date Type Department Care Team (Late st Contact Info) Description 07/09/2025 9:45 AM EST Office Visit [facility] MEDICINE [address] [place] [address] documented as of this encounter Goals Goal Patient Goal Type Associated Problems Recent Progress Patient-Stated? Author Quit using tobacco (cigarettes, smokeless, etc) Tobacco Use Corey Cornell, PharmD documented as of this encounter Visit Diagnoses Not on filedocumented in this encounter Additional Health Concerns Assessment Noted Time PHQ-9 Depression Total Score: 6 04/03/20 11:40 AM EDT documented as of this encounter Care Teams Lining Cutter Relationship Specialty Start Date End Date Mackenzie Estrada MD [address] [place] [address] PCP - General Family Medicine 07/10/20 Hemalatha Pretty Rotary Cutter OperatorSkein Bander 01/02/25 documented as of this encounter
--- OUTSIDE RECORDS SUMMARY | 2025-06-25 08:44 | XMS_ITS | Encounter Summary ---
Author Organization [employer] Address [address] [facility] 7t [place] [address] Care Team Providers Care Systems Coordinator Name Role Phone Mackenzie Estrada MD Primary Care Provider [phone] Casper Magaña RN Unavailable [phone] Ruth Ann Price Unavailable Unavailable Ruth Ann Price Unavailable Ruth Ann Price Unavailable Reason for Visit * Reason Comments Med Refill Encounter Details Date Type Department Care Team (Late st Contact Info) Description 11/18/2023 Refill [facility] MEDICINE [address] [place] [address] Mackenzie Estrada MD [address] [place], [place] [phone] Pain in both hands Social History Tobacco [...] 9:45 AM EST Office Visit [facility] MEDICINE [address] [place] [address] documented as of this encounter Goals Goal Patient Goal Type Associated Problems Recent Progress Patient-Stated? Author Quit using tobacco (cigarettes, smokeless, etc) Tobacco Use Corey Cornell, PharmD documented as of this encounter Visit Diagnoses Diagnosis Pain in both hands documented in this encounter Care Teams Systems Coordinator Relationship Specialty Start Date End Date Mackenzie Estrada MD [address] [place] [address] PCP - General Family Medicine 07/10/20 Casper Magaña, JENNIFER [address] [place] [address] Registered Nurse Family Medicine 01/18/25 01/18/25 Ruth Ann Price 02/19/25 02/19/25 Ruth Ann Price 02/19/25 02/28/25 Ruth Ann Price 03/29/25 04/03/25 Hemalatha Pretty Typing Section ChiefNursing Information Systems Coordinator 01/02/25 documented as of this encounter
--- OUTSIDE RECORDS SUMMARY | 2025-06-25 08:44 | XMS_ITS | Encounter Summary ---
Author Organization [employer] Address [address] [facility] 7t [place] [address] Care Team Providers Care Supervisor Advertising Dispatch Clerks Name Role Phone Mackenzie Estrada MD Primary Care Provider [phone] Ruth Ann Price Unavailable Unavailable Ruth Ann Price Unavailable Ruth Ann Price Unavailable Reason for Visit * Reason Comments Med Refill Encounter Details Date Type Department Care Team ([facility] st Contact Info) Description 02/01/2025 Refill [facility] MEDICINE [address] [place] [address] Ebony Daigle MD [address] [place], [place] [phone] Social History Tobacco Use Types Packs/Day Years [...] Visit [facility] MEDICINE [address] [place] [address] documented as of this encounter Goals Goal [...] as of this encounter Care Teams Supervisor Advertising Dispatch Clerks Relationship Specialty Start Date End Date Mackenzie Estrada MD [address] [place] [address] PCP - General Family Medicine 07/10/20 Ruth Ann Price 02/19/25 02/19/25 Ruth Ann Price 02/19/25 02/28/25 Ruth Ann Price 03/29/25 04/03/25 Hemalatha Pretty Health Services Information SpecialistCotton Washer 01/02/25 documented as of this encounter
--- OUTSIDE RECORDS SUMMARY | 2025-06-25 08:44 | XMS_ITS | Encounter Summary ---
Author Organization [email or web address] [facility] Address [address] [facility] 7t [place] [address] Care Team Providers Care Director Of Research And Development Name Role Phone Mackenzie Estrada MD Primary Care Provider [phone] Casper Magaña RN Unavailable [phone] Ruth Ann Price Unavailable Unavailable Ruth Ann Price Unavailable Ruth Ann Price Unavailable Encounter Details Date Type Department Care Team (Late Contact Info) Description 03/04/2023 Orders Only [facility] MEDICINE [address] [place] [address] Kat Yo MD [address] [place] [address] Social History Tobacco Use Types Packs/Day Years [...] Description 07/09/2025 9:45 AM EST Office Visit [facility] MEDICINE [address] [place] [address] documented as of this encounter Visit Diagnoses Not on filedocumented in this encounter Care Teams Director Of Research And Development Relationship Specialty Start Date End Date Mackenzie Estrada MD [address] [place] [address] PCP - General Family Medicine 07/10/20 Casper Magaña, JENNIFER [address] [place] [address] Registered Nurse Family Medicine 01/18/25 01/18/25 Ruth Ann Price 02/19/25 02/19/25 Ruth Ann Price 02/19/25 02/28/25 Ruth Ann Price 03/29/25 04/03/25 Hemalatha Pretty Heel CutterDirector Child Abuse Therapy 01/02/25 documented as of this encounter
--- OUTSIDE RECORDS SUMMARY | 2025-06-25 08:44 | XMS_ITS | Encounter Summary ---
Author Organization [employer] Address [address] [facility] 7t [place] [address] Care Team Providers Care Manager Maritime Name Role Phone Mackenzie Estrada MD Primary Care Provider [phone] Reason for Visit * Reason Comments Med Refill Encounter Details Date Type Department Care Team ([facility] Contact Info) Description 04/09/2025 Refill [facility] MEDICINE [address] [place] [address] Sisi Kennedy FNP [address] [place] [address] Seborrheic dermatitis Social History Tobacco Use Types [...] Description 07/09/2025 9:45 AM EST Office Visit [facility] MEDICINE [address] [place] [address] documented as of this encounter Goals Goal [...] as of this encounter Care Teams Manager Maritime Relationship Specialty Start Date End Date Mackenzie Estrada MD [address] [place] [address] PCP - General Family Medicine 07/10/20 Hemalatha Pretty On Site ManagerMid Level Project Manager 01/02/25 documented as of this encounter
--- OUTSIDE RECORDS SUMMARY | 2025-06-25 08:44 | XMS_ITS | Encounter Summary ---
Author Organization [employer] Address [address] [facility] 7t [place] [address] Care Team Providers Care Cv Rn Name Role Phone Mackenzie Estrada MD Primary Care Provider [phone] Casper Magaña RN Unavailable [phone] Ruth Ann Price Unavailable Unavailable Ruth Ann Price Unavailable Ruth Ann Price Unavailable Reason for Visit * Reason Comments Med Refill Encounter Details Date Type Department Care Team (Late st Contact Info) Description 08/19/2024 Refill [facility] 230 [place] [address] Mackenzie Estrada MD [address] [place] [address] Social History Tobacco Use Types Packs/Day Years [...] Description 07/09/2025 9:45 AM EST Office Visit [facility] [address] [place] [address] documented as of this encounter Goals Goal Patient Goal Type Associated Problems Recent Progress Patient-Stated? Author Quit using tobacco (cigarettes, smokeless, etc) Tobacco Use Corey Cornell, PharmD documented as of this encounter Visit Diagnoses Not on filedocumented in this encounter Additional Health Concerns Assessment Noted Time PHQ-9 Depression Total Score: 2 04/30/20 24 10:41 AM EDT documented as of this encounter Care Teams Cv Rn Relationship Specialty Start Date End Date Mackenzie Estrada MD [address] [place] [address] PCP - General Family Medicine 07/10/20 Casper Magaña RN [address] [place] [address] Registered Nurse Family Medicine 01/18/25 01/18/25 Ruth Ann Pirce 02/19/25 02/19/25 Ruth Ann Price 02/19/25 02/28/25 Ruth Ann Price 03/29/25 04/03/25 Hemalatha Pretty Enterostomal NurseElectrical Machinist 01/02/25 documented as of this encounter
--- OUTSIDE RECORDS SUMMARY | 2025-06-25 08:44 | XMS_ITS | Encounter Summary ---
Author Organization [employer] Address [address] 7t [place] [address] Care Team Providers Care Deputy Sheriff Civil Division Name Role Phone Mackenzie Estrada MD Primary Care Provider [phone] Casper Magaña RN Unavailable [phone] Ruth Ann Price Unavailable Unavailable Ruth Ann Price Unavailable Ruth Ann Price Unavailable Reason for Visit * Reason Comments Med Refill Encounter Details Date Type Department Care Team (Late st Contact Info) Description 10/10/2024 Refill [facility] [address] [place] [address] Kat Yo MD [address] [place] [address] Rheumatoid arthritis involving right hand with positive [...] Upcoming Encounters Date Type Department Care Team ([facility] st Contact Info) Description 07/09/2025 9:45 AM EST Office Visit [facility] MEDICINE [address] [place] [address] documented as of this encounter Goals Goal [...] documented as of this encounter Care Teams Deputy Sheriff Civil Division Relationship Specialty Start Date End Date Mackenzie Estrada MD [address] [place] [address] PCP - General Family Medicine 07/10/20 Casper Magaña, RN [address] [place] [address] [place] [address] Registered Nurse Family Medicine 01/18/25 01/18/25 Ruth Ann Price 02/19/25 02/19/25 Ruth Ann Price 02/19/25 02/28/25 Ruth Ann Price 03/29/25 04/03/25 Hemalatha Pretty Garbage Truck HelperStore Loss Prevention Manager 01/02/25 documented as of this encounter
--- OUTSIDE RECORDS SUMMARY | 2025-06-25 08:44 | XMS_ITS | Encounter Summary ---
Author Organization [employer] Address [address] [address] 7t [place] [address] Care Team Providers Care Guest Request Runner Name Role Phone Mackenzie Estrada MD Primary Care Provider [phone] Encounter Details Date Type Department Care Team (Latest Contact Info) Description 06/21/2025 Travel Social History Tobacco Use Types Packs/Day [...] Description 07/09/2025 9:45 AM EST Office Visit [facility] MEDICINE 230 [place] [address] documented as of this encounter Goals Goal [...] as of this encounter Care Teams Guest Request Runner Relationship Specialty Start Date End Date Mackenzie Estrada MD 230 [place] [address] PCP - General Family Medicine 07/10/20 Hemalatha Pretty Veneer PatcherCharging Crane Operator 01/02/25 documented as of this encounter
--- OUTSIDE RECORDS SUMMARY | 2025-06-25 08:44 | XMS_ITS | Encounter Summary ---
Author Organization [employer] Address [address] [facility] 7t [place] [address] Care Team Providers Care Boat Oar Maker Name Role Phone Mackenzie Estrada MD Primary Care Provider [phone] Casper Magaña RN Unavailable [phone] Ruth Ann Price Unavailable Unavailable Ruth Ann Price Unavailable Ruth Ann Price Unavailable Reason for Visit * Reason Comments Med Refill Encounter Details Date Type Department Care Team (Late st Contact Info) Description 10/10/2024 Refill [facility] MEDICINE [address] [place] [address] Mackenzie Estrada MD [address] [place] [address] 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 ([facility] Social History Tobacco Use Types Packs/Day Years [...] Upcoming Encounters Date Type Department Care Team ([facility] st Contact Info) Description 07/09/2025 9:45 AM EST Office Visit [facility] MEDICINE [address] [place] [address] documented as of this encounter Goals Goal [...] documented as of this encounter Care Teams Boat Oar Maker Relationship Specialty Start Date End Date Mackenzie Estrada MD [address] [place] [address] PCP - General Family Medicine 07/10/20 Casper Magaña, RN [address] [place] [address] [place] [address] Registered Nurse Family Medicine 01/18/25 01/18/25 Ruth Ann Price 02/19/25 02/19/25 Ruth Ann Price 02/19/25 02/28/25 Ruth Ann Price 03/29/25 04/03/25 Hemalatha Pretty Bariatric PhysicianTopper Packer 01/02/25 documented as of this encounter
--- OUTSIDE RECORDS SUMMARY | 2025-06-25 08:44 | XMS_ITS | Encounter Summary ---
Author Organization [employer] Address [address] [facility] 7t [place] [address] Care Team Providers Care Grapple Yarder Operator Name Role Phone Mackenzie Estrada MD Primary Care Provider [phone] Reason for Visit * Reason Comments Med Refill Encounter Details Date Type Department Care Team ([facility] Contact Info) Description 04/11/2025 Refill [facility] MEDICINE [address] [place] [address] Mackenzie Estrada MD [address] [place] [address] 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 [...] Description 07/09/2025 9:45 AM EST Office Visit [facility] MEDICINE [address] [place] [address] documented as of this encounter Goals Goal [...] documented as of this encounter Care Teams Grapple Yarder Operator Relationship Specialty Start Date End Date Mackenzie Estrada MD [address] [place] [address] PCP - General Family Medicine 07/10/20 Hemalatha Pretty Surgical Instrument MechanicSailing Master 01/02/25 documented as of this encounter
--- OUTSIDE RECORDS SUMMARY | 2025-06-25 08:44 | XMS_ITS | Encounter Summary ---
Author Organization [employer] Address [address] [facility] 7t [place] [address] Care Team Providers Care Work Study Student Name Role Phone Mackenzie Estrada MD Primary Care Provider [phone] Casper Magaña RN Unavailable [phone] Ruth Ann Price Unavailable Unavailable Ruth Ann Price Unavailable Ruth Ann Price Unavailable Reason for Visit * Reason Comments Med Refill Encounter Details Date Type Department Care Team ([facility] Contact Info) Description 12/10/2022 Refill [facility] MEDICINE [address] [place] [address] Mackenzie Estrada MD 230 [place] [address] Pain in both hands Social History Tobacco [...] Encounters Date Type Department Care Team ([facility] Contact Info) Description 07/09/2025 9:45 AM EST Office Visit [facility] MEDICINE [address] [place] [address] documented as of this encounter Visit Diagnoses Diagnosis Pain in both hands documented in this encounter Care Teams Work Study Student Relationship Specialty Start Date End Date Mackenzie Estrada MD [address] [place] [address] PCP - General Family Medicine 07/10/20 Casper Magaña, JENNIFER [address] [place] [address] Registered Nurse Family Medicine 01/18/25 01/18/25 Ruth Ann Price 02/19/25 02/19/25 Ruth Ann Price 02/19/25 02/28/25 Ruth Ann Price 03/29/25 04/03/25 Hemalatha Pretty Swedish MasseuseTariff Expert 01/02/25 documented as of this encounter
--- OUTSIDE RECORDS SUMMARY | 2025-06-25 08:44 | XMS_ITS | Encounter Summary ---
Author Organization [employer] Address [address] [facility] 7t [place] [address] Care Team Providers Care Repertoire Manager Name Role Phone Mackenzie Estrada MD Primary Care Provider [phone] Ruth Ann Price Unavailable Unavailable Ruth Ann Price Unavailable Ruth Ann Price Unavailable Reason for Visit * Reason Comments Med Refill Encounter Details Date Type Department Care Team ([facility] st Contact Info) Description 01/24/2025 Refill [facility] MEDICINE 230 [place] [address] Ebony Daigle MD [address] [place], [place] [phone] Rheumatoid arthritis involving multiple sites with positive rheumatoid factor ([facility]) Social History Tobacco Use [...] Description 07/09/2025 9:45 AM EST Office Visit [facility] MEDICINE [address] [place] [address] documented as of this encounter Goals Goal [...] documented as of this encounter Care Teams Repertoire Manager Relationship Specialty Start Date End Date Mackenzie Estrada MD [address] [place] [address] PCP - General Family Medicine 07/10/20 Ruth Ann Price 02/19/25 02/19/25 Ruth Ann Price 02/19/25 02/28/25 Ruth Ann Price 03/29/25 04/03/25 Hemalatha Pretty Mechanical Engineering DirectorPill Machine Operator 01/02/25 documented as of this encounter
--- OUTSIDE RECORDS SUMMARY | 2025-06-25 08:44 | XMS_ITS | Encounter Summary ---
Author Organization [employer] Address [address] [facility] 7t [place] [address] Care Team Providers Care Service Associate Name Role Phone Mackenzie Estrada MD Primary Care Provider [phone] Casper Magaña RN Unavailable [phone] Ruth Ann Price Unavailable Unavailable Ruth Ann Price Unavailable Ruth Ann Price Unavailable Reason for Visit * Reason Comments Med Refill Encounter Details Date Type Department Care Team (Late st Contact Info) Description 02/08/2023 Refill [facility] MEDICINE [address] [place] [address] Mackenzie Estrada MD [address] [place] [address] Pain in both hands Social History Tobacco [...] 07/09/2025 9:45 AM EST Office Visit [facility] MEDICINE [address] [place] [address] documented as of this encounter Visit Diagnoses Diagnosis Pain in both hands documented in this encounter Care Teams Service Associate Relationship Specialty Start Date End Date Mackenzie Estrada MD [address] [place] [address] PCP - General Family Medicine 07/10/20 Casper Magaña RN [address] [place] [address] Registered Nurse Family Medicine 01/18/25 01/18/25 Ruth nAn Price 02/19/25 02/19/25 Ruth Ann Price 02/19/25 02/28/25 Ruth Ann Price 03/29/25 04/03/25 Hemalatha Pretty Programmer Numerical ControlImmigration Paralegal 01/02/25 documented as of this encounter
--- OUTSIDE RECORDS SUMMARY | 2025-06-25 08:45 | XMS_ITS | Encounter Summary ---
Author Organization [employer] Address [address] [facility] [address] 7t [place] [address] Care Team Providers Care Floorwalker Name Role Phone Mackenzie Estrada MD Primary Care Provider [phone] Casper Magaña RN Unavailable [phone] Ruth Ann Price Unavailable Unavailable Ruth Ann Price Unavailable Ruth Ann Price Unavailable Encounter Details Date Type Department Care Team (Late st Contact Info) Description 06/01/2023 Orders Only [facility] MEDICINE [address] [place] [address] Mackenzie Estrada MD [address] [place] [address] Encounter for smoking cessation counseling (Primary Dx) [...] 07/09/2025 9:45 AM EST Office Visit [facility] MEDICINE [address] [place] [address] documented as of this encounter Goals Goal Patient Goal Type Associated Problems Recent Progress Patient-Stated? Author Quit using tobacco (cigarettes, smokeless, etc) Tobacco Use Corey Cornell, Bailey documented as of this encounter Visit Diagnoses Diagnosis Encounter for smoking cessation counseling- Primary documented in this encounter Care Teams Floorwalker Relationship Specialty Start Date End Date Mackenzie Estrada MD [address] [place] [address] PCP - General Family Medicine 07/10/20 Casper Magaña, JENNIFER [address] [place] [address] Registered Nurse Family Medicine 01/18/25 01/18/25 Ruth Ann Price 02/19/25 02/19/25 Ruth Ann Price 02/19/25 02/28/25 Ruth Ann Price 03/29/25 04/03/25 Hemalatha Pretty Finished Carpet InspectorWardrobe Specialist 01/02/25 documented as of this encounter
--- OUTSIDE RECORDS SUMMARY | 2025-06-25 08:45 | XMS_ITS | Encounter Summary ---
Author Organization [employer] Address [address] [facility] [address] [place] [address] Care Team Providers Care Ivf Embryologist Name Role Phone Mackenzie Estrada MD Primary Care Provider [phone] Casper Magaña RN Unavailable [phone] Ruth Ann Price Unavailable Unavailable Ruth Ann Price Unavailable Ruth Ann Price Unavailable Reason for Visit * Reason Comments Med Refill Encounter Details Date Type Department Care Team (Late st Contact Info) Description 07/20/2024 Refill [facility] [address] [place] [address] Mackenzie Estrada MD [address] [place] [address] 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) Social History [...] 07/09/2025 9:45 AM EST Office Visit [facility] [address] [place] [address] documented as of this encounter Goals Goal [...] documented as of this encounter Care Teams Ivf Embryologist Relationship Specialty Start Date End Date Mackenzie Estrada MD [address] [place] [address] PCP - General Family Medicine 07/10/20 Casper Magaña, RN [address] [place] [id number] Registered Nurse Family Medicine 01/18/25 01/18/25 Ruth Ann Price 02/19/25 02/19/25 Ruth Ann Price 02/19/25 02/28/25 Ruth Ann Price 03/29/25 04/03/25 Hemalatha Pretty Survey AssociateFashion Director Party Plan Sales 01/02/25 documented as of this encounter
--- OUTSIDE RECORDS SUMMARY | 2025-06-25 08:45 | XMS_ITS | Encounter Summary ---
Author Organization [employer] Address [address] [facility] [address] [place] [address] Care Team Providers Care Consumer Loan Processor Name Role Phone Mackenzie Estrada MD Primary Care Provider [phone] Casper Magaña RN Unavailable [phone] Ruth Ann Price Unavailable Unavailable Ruth Ann Price Unavailable Ruth Ann Price Unavailable Reason for Visit * Reason Comments Med Refill Encounter Details Date Type Department Care Team (Late st Contact Info) Description 06/01/2023 Refill [facility] [address] [place] [address] Mackenzie Estrada MD [address] [place], [place] [id number] Pain in both hands Social History Tobacco [...] Description 07/09/2025 9:45 AM EST Office Visit [facility] [address] [place] [address] documented as of this encounter Goals Goal Patient Goal Type Associated Problems Recent Progress Patient-Stated? Author Quit using tobacco (cigarettes, smokeless, etc) Tobacco Use Corey Cornell, PharmD documented as of this encounter Visit Diagnoses Diagnosis Pain in both hands documented in this encounter Care Teams Consumer Loan Processor Relationship Specialty Start Date End Date Mackenzie Estrada MD [address] [place] [address] PCP - General Family Medicine 07/10/20 Casper Magaña, JENNIFER [address] [place] [address] Registered Nurse Family Medicine 01/18/25 01/18/25 Ruth Ann Price 02/19/25 02/19/25 Ruth Ann Price 02/19/25 02/28/25 Ruth Ann Price 03/29/25 04/03/25 Hemalatha Pretty Agile Scrum MasterAging Room Operator 01/02/25 documented as of this encounter
--- OUTSIDE RECORDS SUMMARY | 2025-06-25 08:45 | XMS_ITS | Clinical Summary ---
Author Organization [employer] Address [address] [place] [address] Care Team Providers Care Lining Ironer Name Role Phone Mackenzie Estrada MD Primary Care Provider [phone] Allergies Active Allergy Reactions Criticality Noted Date Comments [place] (Diagnostic) 05/23/2020 [place] Oil Anaphylaxis High 07/19/2022 Morphine 06/02/2015 Other [...] 07/01/20 22 Active Sharps Container (GUARDIAN Sharps Jig Mill Operator) misc 06/15/20 22 Active Vitamin D High Potency 25 MCG (1000 UT) capsule Take 25 mcg by mouth in the morning. 12/11/19 23 Active beta carotene (vitamin A) 3 MG (92784 UT) capsule Take by mouth in the [...] MORNING FOR EAR PAIN 90 tablet 3 5 9:31 AM EST 09/18/19 25 Active famotidine (Pepcid) 20 MG tabletIndicati ons:Gastroesop hageal reflux disease with hiatal hernia TAKE 1 TABLET BY MOUTH TWICE DAILY AT NOON AND IN THE EVENING 180 tablet 3 5 9:31 AM EST 09/25/19 25 Active clopidogrel (Plavix) 75 MG tabletIndicati ons:NSTEMI (non-ST elevated myocardial infarction) ([facility]) Take 1 tablet (75 mg) by mouth Once per day. 90 tablet 3 5 9:31 AM EST 09/28/19 25 026 Active Diclofenac Sodium 1 [...] TIME RINSE MOUTH AFTER USING 30 each 5 9:31 AM EST 05/14/20 25 Active Eliquis 5 MG tablet TAKE 1 TABLET BY MOUTH TWICE DAILY IN THE MORNING AND IN THE EVENING 60 tablet 3 06/05/20 25 Active oxyCODONE-acet aminophen (Percocet) 7.5-325 MG tabletIndicati ons:Osteonecro sis of hip with collapse of femoral head present on x-ray ([facility]),Rheumato id arthritis involving multiple sites with positive rheumatoid factor (CMS/HCC) ([facility]),Chronic low back pain, unspecified back pain laterality, unspecified whether sciatica present,Long-t erm current use of opiate analgesic Take 1 tablet by mouth every 6 (six) hours if needed for severe pain for up to 28 days. 112 tablet 06/07/20 25 025 Active ezetimibe (Zetia) 10 MG tabletIndicati ons:NSTEMI (non-ST elevated myocardial infarction) ([facility]) Take 10 mg by mouth in the morning. 06/06/20 25 Active folic acid (Folvite) 1 MG tabletIndicati ons:Rheumatoid arthritis involving multiple sites with positive rheumatoid factor (CMS/HCC) ([facility]) Take 1 tablet (1,000 mcg) by mouth in the morning. 90 tablet 3 5 9:31 AM EST 06/11/20 25 Active predniSONE (Deltasone) 10 MG tablet Take 1 tablet (10 mg) by mouth Once per day for 7 days, THEN 0.5 tablets (5 mg) Once per day for 7 days, THEN 0.5 tablets (5 mg) every other day for 7 days. Take three tabs 12 hours prior to exam, then three tabs 2 hours prior to exam. 12 tablet 5 11:19 AM EST 06/21/20 25 025 Active folic acid (Folvite) 1 MG tablet Take 1,000 mcg by mouth in the morning. 04/28/20 22 025 Discontinued(Re order (will not trigger notification to Pharmacy)) pantoprazole (ProtoNix) 40 MG EC tablet Take 40 mg by mouth in the morning. 05/26/20 22 025 Discontinued(Th erapy completed) sertraline (Zoloft) 50 MG tablet Take 1 [...] tablet by mouth Once per day. 03/15/20 25 025 Discontinued(Th erapy completed) predniSONE (Deltasone) 5 MG tablet TAKE 3 TABLETS BY MOUTH ONCE DAILY TIME 4 WEEKS, 2 TABLETS ONCE DAILY TIME 4 WEEKS, THEN 1 TABLET ONCE DAILY TIME 4 WEEKS THEN STOP 04/17/20 25 025 Discontinued(Th erapy completed) sulfamethoxazo le-trimethopri m (Bactrim DS) 800-160 MG tabletIndicati ons:Soft tissue lesion of elbow region Take 1 tablet by mouth 2 times daily for 7 days. 14 tablet 06/07/20 25 025 carbamide peroxide (Debrox) 6.5 % otic solutionIndica [...] min PRN 05/14/2025 06/11/20 2 5 Discontinued Active Problems Problem Noted Date Diagnosed Date [...] antibiotics. Patient should continue RA treatment with drill press operator for metal, avoid trauma to elbows. Cervical paraspinal muscle spasm 01/24/2025 Long-term current use of opiate analgesic 2024 Overview (05/14/2025): Medication: Percocet 7.5/325mg Q6H PRN Indication: Rheumatoid arthritis Last PROPOSAL WRITER Agreement: 05/14/25 Tier: II (Q3 months visits), [...] 8:21 AM EST): Has Narcan at home PROPOSAL WRITER agreement UTD Seeing group pain visits for PROPOSAL WRITER Assessment & Plan (09/11/2024 5:03 PM EST): [...] ng right hand with positive rheumatoid factor ([facility]) 01/26/2024 Overview (08/14/2024): - Following with [facility] Rheum: Dr. Castro Assessment & Plan (01/26/2024 [...] to go back to her previous dose, PROPOSAL WRITER nurse informed about my plan, I instructed [...] pt f w Dr. 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 Corley Assessment & Plan (05/14/2025 [...] PM EDT): Primarily managed by Rheum at [facility] Continue to take Oulimiant 2mg, Methotrexate 20mg [...] not as effective -I spoke today with [facility] staff today ( Shahla) and confirmed they do have remdesivir which will be the best options for tx for this pt , ER at [facility] are expecting pt for evaluation. Also [...] week as per Rheumatology. Rx sent to [facility] and they will continue refill for [...] organization. Date Type Department Care Team Description 06/21/2025 10:20 AM EST Office Visit [facility] [address] [place] [phone] Name, MD Mark Bilateral hand pain (Primary Dx); Bilateral hand swelling; Swelling of both wrists; Rheumatoid arthritis involving multiple sites, unspecified whether rheumatoid factor present ([facility]) ([facility]) 06/21/2025 Travel 06/17/[address] [address] Mackenzie Estrada MD Medication Question 06/12/2025 Orders Only [facility] External Provider, [facility] 06/07/2025 3:45 PM EST Office Visit [address] [address] Mackenzie Estrada MD Bilateral impacted cerumen (Primary Dx); 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 (HCC); Rheumatoid arthritis involving multiple sites with positive rheumatoid factor (CMS/HCC) ([facility]); Soft tissue lesion of elbow region; Chronic low back pain, unspecified back pain laterality, unspecified whether sciatica present; Tobacco dependence; Class 1 obesity with serious comorbidity and body mass index (BMI) of 33.0 to 33.9 in adult, unspecified obesity type; continuous churn buttermaker current use of anticoagulant; Personal history of Hodgkin lymphoma; NSTEMI (non-ST elevated myocardial infarction) ([facility]); Long-term current use of opiate analgesic 06/07/2025 Travel 06/04/[address] [address] Mackenzie Estrada MD 05/17/[address] [address] Mackenzie Estrada MD notes 05/17/[address] [address] Mackenzie Estrada MD Preop notes; Call Back Request 05/16/2025 10:30 AM EDT Office Visit [address] [address] Aura Vu NP Pre-op examination (Primary Dx) 05/16/2025 Orders Only GENERIC EXTERNAL DATA DEPARTMENT Provider, Generic External Data 05/16/2025 Travel 05/14/2025 1:00 PM EDT Office Visit [facility] [address] [place] [address] Raoul Hills MD Precordial pain (Primary Dx); Chest pain, unspecified type 05/14/2025 9:45 AM EDT Office Visit [address] [address] Sisi Kennedy FNP Rheumatoid arthritis involving multiple sites with positive rheumatoid factor (CMS/HCC) ([facility]) (Primary Dx); Long-term current use of opiate analgesic; NSTEMI (non-ST elevated myocardial infarction) ([facility]) 05/14/[address] [address] Mackenzie Estrada MD Chartprep 05/14/2025 Refill [facility] [address] [place] [address] Kaylene Samano RN 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 ([facility]) 05/14/2025 Travel 05/14/2025 Refill [facility] [address] [place] [address] Mackenzie Estrada MD Subacute cough 05/09/2025 Telephone [facility] [address] [place] [address] Mackenzie Estrada MD Pre-op Exam 04/17/[address] [address] Mackenzie Estrada MD Med Refill 04/16/2025 Refill [facility] [address] [place] [address] Mackenzie Estrada MD 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 ([facility]) 04/15/2025 Refill [facility] [address] [place] [address] Mackenzie Estrada MD 04/12/2025 Refill [facility] [address] [place] [address] Mackenzie Estrada MD 04/11/2025 Refill [facility] [address] [place] [address] Mackenzie Estrada MD 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 ([facility]) 04/09/2025 10:40 AM EDT Office Visit [facility] [address] [place] [address] David Jensen MD Nodule of skin of both upper extremities (Primary Dx) 04/09/2025 Orders Only [facility] [address] [place] [address] David Jensen MD 04/09/2025 Refill [facility] [address] [place] [address] Sisi Kennedy FNP Seborrheic dermatitis 04/09/2025 Travel 04/09/[address] [address] Mackenzie Estrada MD Nurse Triage 04/07/[address] [address] Mackenzie Estrada MD 04/05/2025 Results Follow-Up [facility] [address] [place] [address] Sisi Kennedy FNP CBC auto differential 04/04/2025 Results Follow-Up [address] [address] Marychuy Bonilla ANP XR Elbow 3+ Views Left 04/04/2025 Orders Only GENERIC EXTERNAL DATA DEPARTMENT Provider, Generic External Data 04/03/2025 11:15 AM EDT Office Visit [address] [address] Sisi Kennedy FNP Nodule of skin of both upper extremities (Primary Dx) 04/03/2025 Patient Outreach [facility] [address] [place] [address] Mackenzie Estrada MD Care Coordination (Communication to patient assigned CP Coordinator ) 04/03/2025 Travel 04/02/[address] [address] Sisi Kennedy FNP CHART PREP 03/29/2025 Patient Outreach [facility] [address] [place] [address] Mackenzie Estrada MD Care Coordination ([facility] ED Follow Up) 03/29/2025 Patient Outreach [facility] [address] [place] [address] Mackenzie Estrada MD Care Coordination (CP Care Coordination Chart Review) 03/29/2025 Patient Outreach [address] [address] Mackenzie Estrada MD from Last 3 Months [...] Mass Index 36.36 06/21/2025 10:08 AM EST Plan of Treatment Upcoming Encounters Date Type Department Care Team (Late st Contact Info) Description 07/09/2025 9:45 AM EST Office Visit [facility] [address] [place] [address] Health Maintenance Due Date Last Done Comments CT Colonography 1975 Dental Prophylaxis 1975 FIT DNA/Cologuard 1975 FIT 1975 FOBT 1975 Sigmoidoscopy 1975 Zoster Vaccines (1 of 2) 1995 Dental Oral Exam 07/30/2021 01/27/2021 Dental X-Ray: Full Mouth 05/20/2024 021, 01/27/2021, 01/27/2021 Dental X-Ray: Bitewings 01/20/2025 01/20/20 24, 01/27/2021, 04/19/2016 COVID-19 Vaccine ( season) 2025 07/23/2021, 12/10/2020, 11/12/2020 Influenza Vaccine (#1) 2025 , 05/13/2021, 07/05/2018, Additional history exists SDOH Screening 09/10/2025 09/10/2024 Family Planning (PISQ) 09/28/2025 09/28/2024 Alcohol/Substance Use Screening 12/28/2025 12/28/2024 Disability Screening 12/28/2025 12/28/2024 Depression Screening 04/03/2026 04/03/2025, 04/03/20 Tobacco Screening 06/21/2026 06/21/2025 DTaP/Tdap/Td Vaccines (2 - Td or Tdap) 04/19/2027 04/19/2017 Mammogram 05/15/2027 05/15/2025, 09/29, 11/24/2018 Cervical Cancer Screening 09/28/2028 HPV/Cotest 09/28/2028 09/29/2023, 11/22/2018 Pap Smear 09/28/2028 09/29/2023 Lipid Panel 05/16/2030 05/16/2025, 09/14/2021 Colonoscopy 02/22/2034 02/23/2024, 10/28/2017 Colorectal Cancer Screening 02/22/2034 RSV Patients and Patients Aged 60 years [...] Procedure Name Priority Date/Time Associated Diagnosis Comments STRESS TEST WITH MYOCARDIAL PERFUSION Routine 06/12/2025 9:00 AM EST CBC WITH AUTO DIFFERENTIAL Routine 05/16/2025 1:03 [...] 3+ VIEWS LEFT Urgent 10:14 AM EDT HEPATITIS C ANTIBODY Routine 04/11/2024 [...] Recently Relevant to Health Maintenance Results * Stress test with myocardial perfusion (06/12/2025 9:00 AM EST) 06/12/2025 9:00 AM EST Narrative [facility] - 06/13/2025 3:47 PM EST [address] [address] Nuclear Medicine Report Signed Patient: Ginette Arceo MR #: [id number] : 1975 Acct:[id number] Age/Sex: 49 / F ADM Date: 06/12/25 Loc: [facility] Attending Dr: More VAIL Ordering Physician: More Liz Date of Service: 06/12/25 Procedure(s): NM cardiolite stress test Accession Number(s): [id number] cc: More Liz; Mackenzie Estrada Reason for Exam: R07.2 - Precordial pain // LEXISCAN Lexiscan Myocardial perfusion study Indication: Precordial pain to evaluate for myocardial ischemia Technique: The patient was brought in for a Lexiscan perfusion study on 06/12/2025 and was injected 0.4 mg of Lexiscan intravenously. Within a minute of this injection 30 mCi of sestamibi was given intravenously. Images were obtained using the SPECT gamma camera interlaced with the gating device. Images were obtained in supine position. Resting perfusion study was performed on 06/13/2025. Patient was administered 30 mCi of sestamibi intravenously at rest. Images were then obtained in supine position. Images were processed with the software and compared side to side in short axis, horizontal long axis and vertical long axis views. Images obtained without without CT attenuation. Total DLP 141 mGy-cm. Findings: The stress perfusion study showed nonattenuated images show normal uptake of radiotracer in all segments of the LV myocardium with small area of focal mildly reduced uptake in the inferoapical portion of the LV myocardium. Attenuated corrected images show mildly reduced uptake in the septum as well as apex as well as distal anterior wall of the LV myocardium. There is suggestion of left ventricular hypertrophy. The gated study shows normal LV systolic function with calculated LVEF of 54%. LV cavity is normal in size. The gated study shows normal systolic wall thickening and contraction of segments. Resting study shows nonattenuated images show no change in perfusion pattern compared to stress perfusion study. Gating at rest reveals normal systolic wall motion with ejection fraction at 53%. The findings are consistent with likely normal myocardial perfusion. NM/NM cardiolite stress test Impression: 1. Myocardial perfusion imaging study shows likely normal myocardial perfusion 2. Gated LVEF is 54% 3. Transient ischemic dilatation not present Nondiagnostic changes on EKG. Electronically signed by: Robin Felton MD 06/13/2025 03:44 PM [facility] Dictated By: Robin Felton MD Signed By: <Electronically signed by Robin Felton MD in OV> 06/13/25 1544 DD/ 0900 TD/TT: 06/13/25 0840 Gynecological Assistant: Procedure Note Donotuseinterpreter, Image - 06/13/2025 [place] [address] Nuclear Medicine Report Signed Patient: Ginette ArceoMR #: [id number] : 1975Acct:[id number] Age/Sex: 49 / FADM Date: 06/12/25 Loc: [facility] Attending Dr: More VAIL Ordering Physician: More Liz Date of Service: 06/12/25 Procedure(s): NM cardiolite stress test Accession Number(s): [id number] cc: More Liz; Mackenzie Estrada Reason for Exam: R07.2 - Precordial pain // LEXISCAN Lexiscan Myocardial perfusion study Indication: Precordial pain to evaluate for myocardial ischemia Technique: The patient was brought in for a Lexiscan perfusion study on 06/12/2025 and was injected 0.4 mg of Lexiscan intravenously. Within a minute of this injection 30 mCi of sestamibi was given intravenously. Images were obtained using the SPECT gamma camera interlaced with the gating device. Images were obtained in supine position. Resting perfusion study was performed on 06/13/2025. Patient was administered 30 mCi of sestamibi intravenously at rest. Images were then obtained in supine position. Images were processed with the software and compared side to side in short axis, horizontal long axis and vertical long axis views. Images obtained without without CT attenuation. Total DLP 141 mGy-cm. Findings: The stress perfusion study showed nonattenuated images show normal uptake of radiotracer in all segments of the LV myocardium with small area of focal mildly reduced uptake in the inferoapical portion of the LV myocardium. Attenuated corrected images show mildly reduced uptake in the septum as well as apex as well as distal anterior wall of the LV myocardium. There is suggestion of left ventricular hypertrophy. The gated study shows normal LV systolic function with calculated LVEF of 54%. LV cavity is normal in size. The gated study shows normal systolic wall thickening and contraction of segments. Resting study shows nonattenuated images show no change in perfusion pattern compared to stress perfusion study. Gating at rest reveals normal systolic wall motion with ejection fraction at 53%. The findings are consistent with likely normal myocardial perfusion. NM/NM cardiolite stress test Impression: 1. Myocardial perfusion imaging study shows likely normal myocardial perfusion 2. Gated LVEF is 54% 3. Transient ischemic dilatation not present Nondiagnostic changes on EKG. Electronically signed by: Robin Felton MD 06/13/2025 03:44 PM EST Dictated By: Robin Felton MD Signed By: <Electronically signed by Robin Felton MD in OV> 06/13/25 1544 DD/ 0900 TD/TT: 06/13/25 0840 Gynecological Assistant: us [facility] External Provider CV STRE SS PROCEDURES Final Result [facility] [address] [place] [phone] * CBC auto differential (05/16/2025 1:03 PM EDT) Only the most recent of4 resultswithin the time period is included. White Blood Count 6.1 4.8 - 10.8 X10*3/uL [facility] Red Blood Count 4.26 4.20 - 5.50 X10*6/uL [facility] Hemoglobin 13.0 12.0 - 16.0 g/dl [facility] Hematocrit 40.2 37.0 - 47.0 % [facility] Mean Corpuscular Volume 94.4 80.0 - 98.0 fL [facility] Mean Corpuscular Hemoglobin 30.5 27.0 - 33.0 pg [facility] Mean Corpuscular HGB Conc 32.3 31.0 - 35.0 g/dl [facility] Red Cell Distribution Width 14.6 11.0 - 16.0 % [facility] Platelet Count 227 160 - 400 X10*3/uL [facility] Mean Platelet Volume 10.3 9.4 - 12.3 fL [facility] Neutrophils Percent Auto 56.1 45 - 73 % [facility] Imm Gran Pct Auto 0.2 0.0 - 0.4 % [facility] Lymphocytes Percent Auto 36.4 20 - 40 % [facility] Monocytes Percent Auto 5.9 2 - 11 % [facility] Eosinophils Percent Auto 1.1 0 - 4 % [facility] Basophils Percent Auto 0.3 0 - 2 % [facility] NRBC Pct Auto 0.0 0.0 - 0.2 /100WBC [facility] Neutrophils Absolute Auto 3.4 2.0 - 8.3 x10*3/uL [facility] Imm Gran Abs Auto 0.01 0.00 - 0.03 X10*3/uL [facility] Lymphocytes Absolute Auto 2.2 1.2 - 4.9 X10*3/uL [facility] Monocytes Absolute Auto 0.4 0.1 - 1.2 X10*3/uL [facility] Eosinophils Absolute Auto 0.1 0.0 - 0.4 X10*3/uL [facility] Basophils Absolute Auto 0.0 0.0 - 0.2 X10*3/uL [facility] NRBC Abs Auto 0.000 0.0 - 0.012 X10*3/uL [facility] Blood Venous blood specimen / Unknown 05/16/2025 1:03 PM EDT 05/16/2025 1:11 PM EDT [facility] CREDIT CONTROL MANAGER LAB BLOOD ORDERABLES Final Resu lt Performing Organization Address [facility] Co de Phone Number [facility] [address] [place] [phone] * Partial Thromboplastin Time, Activated (APTT) (05/16/2025 12:03 PM EDT) Partial Thromboplastin Time 31.1 26.7 - 34.1 SEC [facility] Blood Venous blood specimen / Unknown 05/16/2025 12:03 PM EDT 05/16/2025 1:11 PM EDT [facility] LAB BLOOD ORDERABLES Final Resu lt Performing Organization Address [facility] de Phone Number [facility] [address] [place] [phone] * (ABNORMAL) Prothrombin Time-INR (05/16/2025 12:03 PM EDT) Prothrombin Time 13.0(H) 10.9 - 12.4 SEC [facility] INTERNATIONAL NORM RATIO 1.1 0.9 - 1.1 [facility] Comment:INTERNATIONAL NORMAL IZED RATIO [...] EDT 05/16/2025 1:11 PM EDT us Aura Horace CREDIT CONTROL MANAGER LAB BLOOD ORDERABLES Final Resu lt Performing Organization Address [facility]/ZIP Co de Phone Number [facility] [address] [place] [address] [phone] * (ABNORMAL) Lipid Panel, Standard (05/16/2025 12:03 PM EDT) Triglycerides 154(H) <150 mg/dL [facility] Comment:Desirable Triglyceri de: less than 150 mg/dLBorderline High Triglyceride 150-199 mg/dLHigh Triglyceride: 200-499 mg/dLVery High Triglyceride: greater than or equal to 5OO mg/dL Cholesterol 261(H) <200 mg/dL [facility] Comment:Desirable Cholestero l: less than 200 mg/dLBorderline High Cholesterol: 200-239 mg/dLHigh Cholesterol: greater than 239 mg/dL LDL Cholesterol Calculated 179(H) <100 mg/dL [facility] Comment:Desirable LDL: less than 100 mg/dLNear Optimal/Above Optimal LDL: 110- 129 mg/dLBorderline High LDL: 130-159 mg/dLHigh LDL: 160-189 mg/dLVery High LDL: greater than or equal to 190 mg/dL HDL Cholesterol 52 >40 mg/dL [facility] Comment:Desirable HDL: great er than 40 mg/dL Note: This HDL assay may give artificially low results in patients with liver disease. 05/16/2025 12:0 3 PM EDT 05/16/2025 1:31 PM EDT us Generic External Data Provider LAB BLOOD ORDERAB LES Final Result Performing Organization Address City/[facility]/ZIP Co de Phone Number [facility] [address] [place] [address] [phone] * (ABNORMAL) Comprehensive Metabolic Panel (05/16/2025 12:03 PM EDT) Only the most recent of2 resultswithin the time period is included. Sodium 142 135 - 145 mmol/L [facility] Potassium 4.1 3.3 - 5.1 mmol/L [facility] Chloride 107 96 - 108 mmol/L [facility] [facility] Carbon Dioxide 27 22 - 29 mmol/L [facility] Anion Gap 12 12 - 20 [facility] Urea Nitrogen (BUN) 13 9 - 16 mg/dL [facility] Creatinine, Serum 0.63 0.5 - 1.4 mg/dL [facility] Estimated Glomerular Filt Rate >60 [facility] Comment:Chronic Kidney Disea se: Estimated GFR < 60 mL/min/1.12w3Gnpbjc Kidney Disease: Estimated GFR < 15 mL/min/1.73m2 Glucose 84 60 - 115 mg/dL [facility] Calcium 9.7 8.4 - 10.2 mg/dL [facility] Bilirubin, Total 0.3 0.0 - 1.0 mg/dL [facility] Aspartate Amino Transferase 33(H) 5 - 31 U/L [facility] Alanine Aminotransferase 27 0 - 31 U/L [facility] Total Protein 9.2(H) 6.5 - 8.0 g/dL [facility] Albumin Level 4.7 3.5 - 5.0 g/dL [facility] Alkaline Phosphatase 81 39 - 117 U/L [facility] Blood Venous blood specimen / Unknown 05/16/2025 12:03 PM EDT 05/16/2025 1:31 PM EDT us Aura Vu CREDIT CONTROL MANAGER LAB BLOOD ORDERABLES Final Resu lt [facility] [address], [place] [phone] * ECG 12 lead (05/15/2025 11:00 AM EDT) Narrative Raoul Hills MD - 05/15/2025 11:00 AM EDT NSR, HR 76 BPM LAFB us Raoul Reed MD ECG ORDERABLES Final Result * BI Mammogram Screening Tomosynthesis Bilateral (05/15/2025 10:22 AM EDT) Anatomical Region Laterality Modality Breast Bilateral Mammography 05/15/2025 10:2 2 AM EDT Narrative 05/19/2025 7:08 AM EDT [facility] [place] [address] Mammography Report Signed Patient: Ginette Arceo MR #: [id number] : 1975 Acct:[id number] Age/Sex: 49 / F ADM Date: 05/15/25 Loc: HO.MAMMO Attending Dr: Sisi Kennedy HARNESSMAKER Ordering Physician: Ebony Daigle MD Results: 2Be nign Date of Service: 05/15/25 Follow Up: 1 Year From Orig ina Mammogram Procedure(s): MM tomosynthesis screening BI Accession Number(s): [id number] cc: Ebony Daigle MD; Mackenzie Estrada Reason [...] 05/19/25 0705 DD/ 1022 TD/TT: 05/15/25 1052 Gynecological Assistant: Procedure Note Donotuseinterpreter, Image - 05/19/2025 [facility] [address] [place] [address] Mammography Report Signed Patient: Ginette ArceoMR #: [id number] : 1975Acct:[id number] Age/Sex: 49 / FADM Date: 05/15/25 Loc: HO.MAMMO Attending Dr: Sisi Kennedy HARNESSMAKER Ordering Physician: Ebony Daigle MDResults: 2Be nign Date of Service: 05/15/25Follow Up: 1 Year From [facility] Mammogram Procedure(s): MM tomosynthesis screening BI Accession Number(s): [id number] cc: Ebony Daigle MD; Mackenzie Estrada Reason [...] 05/19/25 0705 DD/ 1022 TD/TT: 05/15/25 1052 Gynecological Assistant: Ebony Daigle MD IMG BI PROCEDURES Edited Result - Final * [...] Unknown 05/14/2025 9:27 AM EDT Sisi Kennedy HARNESSMAKER POINT OF CARE TEST ENTER/EDIT ORDERABLES Edited Result - Final * Gram Stain Result (04/09/2025 12:20 PM EDT) 04/09/2025 12:2 0 PM EDT 04/10/2025 12:26 PM EDT Comment:Elbow Lt Narrative [facility] - 04/12/2025 8:06 AM EDT Gram stain results: No polys 1+ epithelial cells No organisms seen Routine Culture No growth after 2 days Specimen Source: Elbow Left David Jensen MD HISTORICAL/NON ORDERABLE LABS Fi nal Result Performing Organization Address [facility] de Phone Number [facility] [address] [place] [address] [phone] * Urinalysis w/reflex microscopic (04/04/2025 10:30 AM EDT) Color Urine Yellow [facility] Appearance Urine Clear [facility] PH 5.0 5.0 - 9.0 [facility] Glucose Urine UA Negative Negative mg/dL [facility] Urine Blood Negative Negative [facility] Specific [place] - Urine 1.020 1.005 - 1.025 [facility] Urine Protein Negative Neg-Trace mg/dL [facility] Urine Ketones Negative Negative mg/dL [facility] Nitrite Urine Negative Negative [facility] Leukocyte Esterase Urine Negative Negative [facility] 04/04/2025 10:3 0 AM EDT 04/04/2025 11:09 AM EDT Narrative [facility] - 04/04/2025 11:25 AM EDT Urine, Clean Catch Generic External Data Provider LAB URINE ORDERAB LES Final Result Performing Organization Address [facility] de Phone Number [facility] [address] [place] [address] [phone] * (ABNORMAL) Uric acid (04/04/2025 10:30 AM EDT) Uric Acid 6.3(H) 2.4 - 5.7 mg/dL [facility] 04/04/2025 10:3 0 AM EDT 04/04/2025 11:15 AM EDT Generic External Data Provider LAB BLOOD ORDERAB LES Final Result Performing Organization Address [facility] Co de Phone Number [facility] [address] [place] [phone] * Lactate Dehydrogenase (LD) (04/04/2025 10:30 AM EDT) Lactate Dehydrogenase 130 122 - 220 U/L [facility] 04/04/2025 10:3 0 AM EDT 04/04/2025 11:15 AM EDT Generic External Data Provider LAB BLOOD ORDERAB LES Final Result Performing Organization Address [facility] Co de Phone Number [facility] [address] [place] [phone] * Hepatic Function Panel (04/04/2025 10:30 AM EDT) Bilirubin, Direct 0.1 0.0 - 0.5 mg/dL [facility] 04/04/2025 10:3 0 AM EDT 04/04/2025 11:15 AM EDT Generic External Data Provider LAB BLOOD ORDERAB LES Final Result Performing Organization Address [facility] Co de Phone Number [facility] [address] [place] [phone] * XR Elbow 3+ Views Left (04/04/2025 10:14 AM EDT) Anatomical Region Laterality Modality Upper Extremities, Elbow Left Radiogr aphic Imaging 04/04/2025 10:1 4 AM EDT Narrative 04/04/2025 11:12 AM EDT [address] [address] XRay Report Signed Patient: Ginette Arceo MR #: [id number] : 1975 Acct:[id number] Age/Sex: 49 / F ADM Date: 04/04/25 Loc: HO.HHCX Attending Dr: Marychuy Bonilla CREDIT CONTROL MANAGER Ordering Physician: MARYCHUY BONILLA NP Date of Service: 04/04/25 Procedure(s): XR elbow LT min 3V Accession Number(s): [id number] cc: Mackenzie Estrada; MARYCHUY BONILLA NP Reason [...] 04/04/25 1109 DD/ 1014 TD/TT: 04/04/25 1102 Gynecological Assistant: Procedure Note Donotuseinterpreter, Image - 04/04/2025 [place] [address] XRay Report Signed Patient: Ginette ArceoMR #: [id number] : 1975Acct:[id number] Age/Sex: 49 / FADM Date: 04/04/25 Loc: ABELARDO Attending Dr: Marychuy Bonilla NP Ordering Physician: MARYCHUY BONILLA NP Date of Service: 04/04/25 Procedure(s): XR elbow LT min 3V Accession Number(s): [id number] cc: Mackenzie Estrada; MARYCHUY BONILLA NP Reason [...] 04/04/25 1109 DD/ 1014 TD/TT: 04/04/25 1102 Gynecological Assistant: us Marychuy MELGOZA IMG XR PROCEDURES Final Result * Hepatitis C Ab (04/11/2024 10:26 AM EDT) Pathologist [facility] Hepatitis C Antibody Nonreactive Nonreactive [facility] Comment:Antibodies to HCV no t detected; does not exclude early acuteHCV infection. Blood Venous blood specimen / Unknown 04/11/2024 10:26 AM EDT 04/11/2024 11:19 AM EDT Mackenzie Estrada MD LAB BLOOD ORDERABLES Final Res ult [facility] [address] [place] [phone] * HIV-1/2 Antigen and Antibodies, Fourth Generation, with Reflexes (04/11/2024 10:26 AM EDT) Pathologist [facility] HIV AB/AG Nonreactive Nonreactive [facility] Comment:HIV-1 p24 Ag and/or HIV-1/HIV-2 Ab not detected.A test result that is nonreactive does not exclude thepossibility of exposure to or infection with HIV-1 and/orHIV-2. Nonreactive results in this assay for individualswith prior exposure to HIV-1 and/or HIV-2 may be due toantigen and antibody levels that are below the limit ofdetection of this assay.The [employer] HIV Ag/Ab Combo assay result andsupplemental assay results should be interpreted inconjunction with the patient's clinical presentation,history and other laboratory results. If the results areinconsistent with clinical evidence, additional testing issuggested to confirm the result. Blood Venous blood specimen / Unknown 04/11/2024 10:26 AM EDT 04/11/2024 11:19 AM EDT Mackenzie Estrada MD LAB BLOOD ORDERABLES Final Res ult Performing Organization Address [facility] Co de Phone Number [facility] [address] [place] [phone] * HPV mRNA E6/E7 w/Reflex to HPV Genotypes 16, 18/45 (09/29/2023 12:26 PM EST) HPV nRNA E6/E7 Not Detected Not Detected [facility] Comment:Methodology: Transcr iption-Mediated AmplificationThis assay detects E6/E7 viral messenger RNA (mRNA) from 14high-risk HPV types (16,18,31,33,35,39,45,51,52,56,58,59,66,68).Cervical sources are required for HPV testing.If a vaginal source from a patient who has had atotal hysterectomy with removal of cervix wassubmitted, please contact the testing laboratoryfor alternative testing options.For additional information, please refer [email or web address] [email or web address]/faq/JNG017q1(This link if provided for information/educational purposes only.)THIS TEST WAS PERFORMED AT:[email or web address] [place] [phone] GALVAN MD HPV mRNA E6/E7 [facility] HPV 16 RNA [facility] HPV 18/45 RNA [facility] 09/29/2023 12:2 6 PM EST 09/30/2023 11:30 AM EST Mackenzie Estrada MD LAB CYTOLOGY ORDERABLES Final Result Performing Organization Address [facility]/ZIP Co de Phone Number [facility] [address] [place] [phone] * Pap Smear (09/29/2023 12:26 PM EST) 09/29/2023 12:2 6 PM EST 09/30/2023 11:30 AM EST J Luis [facility] - 10/12/2023 4:18 PM EDT ----- ------- Name: Ginette Arceo Age/Sex: 48/F : 1975 Unit#: [id number] Attend Dr: Mackenzie Estrada Re09/29/23 Status: DEP REF Location: HO.HHCX Disch: ----- ------- SPEC : [id number] RECD: 09/30/23-1130 STATUS: NIRMALA PEREZ NUM: [id number] BHAVIN: 09/29/23-[address] [facility] [address]: Mackenzie Estrada ENTERED: 09/30/23-1325 SP TYPE: Pap Smr OTHR DR: ORDERED: Pap Smear Interpretation Satisfactory for evaluation. Negative for intraepithelial lesion or malignancy. HPV mRNA E6/E7: NOT DETECTED This assay detects E6/E7 viral messenger RNA (mRNA) from 14 high-risk HPV types (16, 18, 31, 33, 35, 39, 45, 51, 52, 56, 58, 59, 66, 68) HPV testing performed by [facility], [place], [place]. See reference laboratory portion of the EMR for entire report. Clinical Information LMP: Heavy menstrual bleeding past two weeks Previous PAP test: Unknown date/findings Other history: Material Received ThinPrep-Cervical ----- ------- Signed (signature on file) BARB Hawley (ASCP) 10/12/23 1618 ----- ------- END OF REPORT Mackenzie Estrada MD LAB CYTOLOGY ORDERABLES Final Result [facility] [address] [place] [address] [phone] * Colonoscopy (10/28/2017) Colonoscopy Normal Normal Narrative Cecilia Henriquez - 10/28/2017 Recommended 10 year follow up ([facility] [place]) Historical Provider HEALTH MAINTENANCE Edited Result - Final from Last 3 Months or Most Recently Relevant to Health Maintenance Insurance [facility] C3 [employer] STAND ADULT Care Teams Lining Ironer Relationship Specialty Start Date End Date Mackenzie Estrada MD [address] [place] [phone] PCP - General Family Medicine 07/10/20 Hemalatha Pretty Telephone Lines RepairerBlood Bank Laboratory Professional 01/02/25
--- OUTSIDE RECORDS SUMMARY | 2025-06-25 08:45 | XMS_ITS | Encounter Summary ---
Author Organization [employer] Address [address] [facility] 7t [place] [address] Care Team Providers Care Business Development Associate Name Role Phone Mackenzie Estrada MD Primary Care Provider [phone] Casper Magaña RN Unavailable [phone] Ruth Ann Price Unavailable Unavailable Ruth Ann Price Unavailable Ruth Ann Price Unavailable Reason for Visit * Reason Comments Med Refill Encounter Details Date Type Department Care Team (Late st Contact Info) Description 06/02/2023 Refill [facility] [address] [place] [address] Mackenzie Estrada MD [address] [place], [place] [phone] Pain in both hands Social History Tobacco [...] Description 07/09/2025 9:45 AM EST Office Visit [facility] [address] [place] [address] documented as of this encounter Goals Goal Patient Goal Type Associated Problems Recent Progress Patient-Stated? Author Quit using tobacco (cigarettes, smokeless, etc) Tobacco Use Corey Cornell, PharmD documented as of this encounter Visit Diagnoses Diagnosis Pain in both hands documented in this encounter Care Teams Business Development Associate Relationship Specialty Start Date End Date Mackenzie Estrada MD [address] [place] [address] PCP - General Family Medicine 07/10/20 Casper Magaña, JENNIFER [address] [place] [address] Registered Nurse Family Medicine 01/18/25 01/18/25 Ruth Ann rPice 02/19/25 02/19/25 Ruth Ann Price 02/19/25 02/28/25 Ruth Ann Price 03/29/25 04/03/25 Hemalatha Pretty Community Relations SpecialistBrinell Tester 01/02/25 documented as of this encounter
--- OUTSIDE RECORDS SUMMARY | 2025-06-25 08:45 | XMS_ITS | Encounter Summary ---
Author Organization [employer] Address [address] [facility] 7t [place] [address] Care Team Providers Care Pile Driving Technician Name Role Phone Mackenzie Estrada MD Primary Care Provider [phone] Casper Magaña RN Unavailable [phone] Ruth Ann Price Unavailable Unavailable Ruth Ann Price Unavailable Ruth Ann Price Unavailable Reason for Visit * Reason Comments Med Refill Encounter Details Date Type Department Care Team (Late st Contact Info) Description 06/03/2023 Refill [facility] [address] [place] [address] Mackenzie Estrada MD [address] [place], [place] [phone] Pain in both hands Social History Tobacco [...] Description 07/09/2025 9:45 AM EST Office Visit [facility] [address] [place] [address] documented as of this encounter Goals Goal Patient Goal Type Associated Problems Recent Progress Patient-Stated? Author Quit using tobacco (cigarettes, smokeless, etc) Tobacco Use Corey Cornell, PharmD documented as of this encounter Visit Diagnoses Diagnosis Pain in both hands documented in this encounter Care Teams Pile Driving Technician Relationship Specialty Start Date End Date Mackenzie Estrada MD [address] [place] [address] PCP - General Family Medicine 07/10/20 Casper Magaña, JENNIFER [address] [place] [address] Registered Nurse Family Medicine 01/18/25 01/18/25 Ruth Ann Price 02/19/25 02/19/25 Ruth Ann Price 02/19/25 02/28/25 Ruth Ann Price 03/29/25 04/03/25 Hemalatha Pretty Merchandising AssistantManager Track 01/02/25 documented as of this encounter
--- OUTSIDE RECORDS SUMMARY | 2025-06-25 08:45 | XMS_ITS | Encounter Summary ---
Author Organization [employer] Address [address] [facility] [address] 7[address] [place] [address] Care Team Providers Care Business Mail Entry Clerk Name Role Phone Mackenzie Estrada MD Primary Care Provider [phone] Casper Magaña RN Unavailable [phone] Ruth Ann Price Unavailable Unavailable Ruth Ann Price Unavailable Ruth Ann Price Unavailable Encounter Details Date Type Department Care Team (Late st Contact Info) Description 04/10/2024 Orders Only [facility] [address] [place] [address] Mackenzie Estrada MD [address] [place] [address] Social History Tobacco Use Types Packs/Day Years [...] 9:45 AM EST Office Visit [facility] [address] [place] [address] documented as of this encounter Goals Goal Patient Goal Type Associated Problems Recent Progress Patient-Stated? Author Quit using tobacco (cigarettes, smokeless, etc) Tobacco Use Corey Cornell, KelechiD documented as of this encounter Visit Diagnoses Not on filedocumented in this encounter Care Teams Business Mail Entry Clerk Relationship Specialty Start Date End Date Mackenzie Estrada MD [address] [place] [address] PCP - General Family Medicine 07/10/20 Casper Magaña, JENNIFER [address] [place] [address] Registered Nurse Family Medicine 01/18/25 01/18/25 Ruth Ann Price 02/19/25 02/19/25 Ruth Ann Price 02/19/25 02/28/25 Ruth Ann Price 03/29/25 04/03/25 Hemalatha Pretty Handle Bar AssemblerChecker 01/02/25 documented as of this encounter
--- OUTSIDE RECORDS SUMMARY | 2025-06-25 08:45 | XMS_ITS | Encounter Summary ---
Author Organization [employer] Address [address] [facility] 7t [place] [address] Care Team Providers Care Linter Drier Operator Name Role Phone Mackenzie Estrada MD Primary Care Provider [phone] Casper Magaña RN Unavailable [phone] Ruth Ann Price Unavailable Unavailable Ruth Ann Price Unavailable Ruth Ann Price Unavailable Reason for Visit * Reason Onset Date Comments Triage 11/10/2022 Encounter Details Date Type Department Care Team ([facility] st Contact Info) Description 11/10/2022 Telephone [facility] MEDICINE [address] [place] [address] Mackenzie Estrada MD [address] [place] [address] Triage Social History Tobacco Use Types Packs/Day [...] - 11/11/2022 11:10 AM EDT TC to [phone] via [employer] interpre[employer] in regards to below message. Pt reports she went to [facility] since [facility] did not return her call. RN informed pt triage nurses attempted to call pt x2 however pt did not answer. RN reviewed [facility] [place] and pt presented [...] and delivery driver the nystatin medication because [facility] did not have it. RN asked if [facility] informed the pt they were going to order it however pt was not sure. RN placed pt on hold and called [facility] pharmacy who reports it is supposed to be arriving in store today and pt should call around 3pm to inquire if it was received and ready for pick up and delivery driver. Pt verbalized understanding. RN advised pt if her rash does not resolve with medication and her pain does not resolve to call [facility] to schedule an appt for further evaluation. Pt verbalized understanding. Pt to F/U PRN. RN has printed ED note and placed in scan bin * Telephone Encounter - Chika Ingram LPN - 11/10/2022 2:30 PM EDT Triage call returned to patient with [place] interpreter [phone] to listed number x 2 no answer. Left message to return call to [phone]. Team Nurses tasked to follow with patient [...] 07/09/2025 9:45 AM EST Office Visit [facility] [address] [place] [phone] documented as of this encounter Visit Diagnoses Not on filedocumented in this encounter Care Teams Linter Drier Operator Relationship Specialty Start Date End Date Mackenzie Estrada MD [address] [place] [address] PCP - General Family Medicine 07/10/20 Casper Magaña, JENNIFER [address] [place] [address] Registered Nurse Family Medicine 01/18/25 01/18/25 Rtuh Ann Price 02/19/25 02/19/25 Ruth Ann Price 02/19/25 02/28/25 Ruth Ann Price 03/29/25 04/03/25 Hemalatha Pretty Retail Equipment AssociateChief Clinical Dietitian 01/02/25 documented as of this encounter
--- OUTSIDE RECORDS SUMMARY | 2025-06-25 08:45 | XMS_ITS | Encounter Summary ---
Author Organization [employer] [facility] Address [address] [facility] 7t [place] [address] Care Team Providers Care Clinical Review Specialist Name Role Phone Mackenzie Estrada MD Primary Care Provider [phone] Casper Magaña RN Unavailable [phone] Ruth Ann Price Unavailable Unavailable Ruth Ann Price Unavailable Ruth Ann Price Unavailable Encounter Details Date Type Department Care Team (Late Contact Info) Description 03/29/2023 Abstract [facility] MED[facility]INE [address] [place] [address] [phone] Cecilia Henriquez Social History Tobacco Use Types [...] Visit [facility] [address] [place], [place] [phone] documented as of this encounter Procedures Procedure Name Priority Date/Time Associated Diagnosis Comments HM COLONOSCOPY Routine 10/28/2017 documented in this encounter Results * Colonoscopy (10/28/2017) Colonoscopy Normal Normal Narrative Cecilia Henriquez - 10/28/2017 Recommended 10 year follow up ([facility] Historical Provider HEALTH MAINTENANCE Edited Result - Final documented in this encounter Visit Diagnoses Not on filedocumented in this encounter Care Teams Clinical Review Specialist Relationship Specialty Start Date End Date Mackenzie Estrada MD [address] [place], [place] [phone] PCP - General Family Medicine 07/10/20 Casper Magaña, JENNIFER [address] [place], [place] [phone] Registered Nurse Family Medicine 01/18/25 01/18/25 Ruth Ann Price 02/19/25 02/19/25 Ruth Ann Price 02/19/25 02/28/25 Ruth Ann Price 03/29/25 04/03/25 Hemalatha Pretty Branch AssociateBlueprinting Machine Operator 01/02/25 documented as of this encounter
--- OUTSIDE RECORDS SUMMARY | 2025-06-25 08:45 | XMS_ITS | Encounter Summary ---
Author Organization [employer] Address [address] [facility] 7t [place] [address] Care Team Providers Care Binitrotoluene Operator Name Role Phone Mackenzie Estrada MD Primary Care Provider [phone] Casper Magaña RN Unavailable Ruth Ann Price Unavailable Unavailable Ruth Ann Price Unavailable Ruth Ann Price Unavailable Reason for Visit * Reason Onset Date Comments Error 08/16/2023 Encounter Details Date Type Department Care Team ([facility] st Contact Info) Description 08/16/2023 Telephone [facility] MEDICINE [address] [place], [place] [phone] Mackenzie Estrada MD [address] [place], [place] [phone] Error Social History Tobacco Use Types Packs/Day [...] Description 07/09/2025 9:45 AM EST Office Visit [facility]INE [address] [place] [address] documented as of this encounter Goals Goal Patient Goal Type Associated Problems Recent Progress Patient-Stated? Author Quit using tobacco (cigarettes, smokeless, etc) Tobacco Use Corey Corenll, KelechiD documented as of this encounter Visit Diagnoses Not on filedocumented in this encounter Care Teams Binitrotoluene Operator Relationship Specialty Start Date End Date Mackenzie Estrada MD [address] [place] [address] PCP - General Family Medicine 07/10/20 Casper Magaña, JENNIFER [address] [place] [address] Registered Nurse Family Medicine 01/18/25 01/18/25 Ruth Ann Price 02/19/25 02/19/25 Ruth Ann Price 02/19/25 02/28/25 Ruth Ann Price 03/29/25 04/03/25 Hemalatha Pretty Profiling Machine Set Up OperatorNicu Rn 01/02/25 documented as of this encounter
--- OUTSIDE RECORDS SUMMARY | 2025-06-25 08:45 | XMS_ITS | Encounter Summary ---
Author Organization [employer] Address [address] [facility] 7t [place] [address] Care Team Providers Care Refinery Operator Reforming Unit Name Role Phone Mackenzie Estrada MD Primary Care Provider [phone] Casper Magaña RN Unavailable [phone] Ruth Ann Price Unavailable Unavailable Ruth Ann Price Unavailable Ruth Ann Price Unavailable Reason for Visit * Reason Onset Date Comments Hospital Follow-up 02/24/2024 Encounter Details Date Type Department Care Team ([facility] st Contact Info) Description 02/24/2024 Telephone [facility] MEDICINE [address] [place], [place] [phone] Mackenzie Estrada MD [address] [place], [place] [phone] Hospital Follow-up Social History Tobacco Use Types [...] 02/19 Discharge date: 02/23 Diagnosed: Rectal Bleeding Latvian Speaker documented in this encounter Plan of Treatment Upcoming Encounters Date Type Department Care Team (Late st Contact Info) Description 07/09/2025 9:45 AM EST Office Visit [facility] MEDICINE [address] [place] [address] documented as of this encounter Goals Goal Patient Goal Type Associated Problems Recent Progress Patient-Stated? Author Quit using tobacco (cigarettes, smokeless, etc) Tobacco Use No Corey Lin, KelechiD documented as of this encounter Visit Diagnoses Not on filedocumented in this encounter Care Teams Refinery Operator Reforming Unit Relationship Specialty Start Date End Date Mackenzie Estrada MD [address] [place] [address] PCP - General Family Medicine 07/10/20 Casper Magaña, RN [address] [place] [address] Registered Nurse Family Medicine 01/18/25 01/18/25 Ruth Ann Price 02/19/25 02/19/25 Ruth Ann Price 02/19/25 02/28/25 Ruth Ann Price 03/29/25 04/03/25 Hemalatha Pretty Assistant Director Of SecurityEligibility Analyst 01/02/25 documented as of this encounter
--- OUTSIDE RECORDS SUMMARY | 2025-06-25 08:45 | XMS_ITS | Encounter Summary ---
Author Organization [employer] Address [address] 7t [place] [address] Care Team Providers Care General Dentist/Owner Name Role Phone Mackenzie Estrada MD Primary Care Provider Casper Magaña RN Unavailable [phone] Ruth Ann Price Unavailable Unavailable Ruth Ann Price Unavailable Ruth Ann Price Unavailable Encounter Details Date Type Department Care Team (Late st Contact Info) Description 06/03/2023 Orders Only [facility] MEDICINE [address] [place] [address] Mackenzie Estrada MD [address] [place], [place] [phone] Pain in both hands Social History Tobacco [...] AM EST Office Visit [facility] MEDICINE [address] [place] [address] documented as of this encounter Goals Goal [...] PM EST Narrative 06/03/2023 5:47 PM EDT [address] [address] XRay Report Signed Patient: Ginette Arceo MR #: [id number] : 1975 Acct:[id number] Age/Sex: 47 / F ADM Date: 06/25/23 Loc: HO.ED Attending Dr: Ordering Physician: Treasure Cleomns Date of Service: 06/25/23 Procedure(s): XR chest 2V Accession Number(s): [id number] cc: Mackenzie Estrada; Treasure Clemons EXAMINATION: XR [...] in OV> 06/25/23 1230 DD/ 1215 TD/TT: Chief Psychology: [facility] Procedure Note Donotuseinterpreter, Image - 06/25/[address] [address] XRay Report Signed Patient: Ginette ArceoMR #: [id number] : 1975Acct:[id number] Age/Sex: 47 / FADM Date: 06/25/23 Loc: HO.ED Attending Dr: Ordering Physician: Treasure Clemons Date of Service: 06/25/23 Procedure(s): XR chest 2V Accession Number(s): [id number] cc: Mackenzie Estrada; Treasure Clemons EXAMINATION: XR [...] in OV> 06/25/23 1230 DD/ 1215 TD/TT: Chief Psychology: [facility] External Provider IMG XR PROCEDURES Edited Result - Final * (ABNORMAL) Urinalysis, Complete, with Reflex to Culture (06/03/2023 4:49 PM EDT) Color Urine Yellow [facility] Appearance Urine Clear [facility] PH 5.5 5.0 - 9.0 [facility] Glucose Urine UA Negative Negative mg/dL [facility] Urine Blood Large (3+)(A) Negative [facility] Specific [place] - Urine 1.025 1.005 - 1.025 [facility] Urine Protein Negative Neg-Trace mg/dL [facility] Urine Ketones Negative Negative mg/dL [facility] Nitrite Urine Negative Negative [facility] Leukocyte Esterase Urine Negative Negative [facility] RBC Urine >20(A) 0 - 2 /HPF [facility] Urine WBC 0-5 0 - 5 /HPF [facility] Urine Squamous Epithelial Cell 11-20 0 - 2 /HPF [facility] Urine Bacteria 1+ None Seen [facility] Hyaline Casts, Urine 0-2 0 - 2 /LPF [facility] 06/03/2023 4:49 PM EDT 06/03/2023 4:52 PM EDT Narrative [facility] - 06/03/2023 5:00 PM EDT Urine, Clean Catch Generic External Data Provider LAB URINE ORDERAB LES Final Result [facility] [address] [place] [phone] * (ABNORMAL) Urinalysis w/reflex microscopic (06/03/2023 4:49 PM EDT) Color Urine Yellow [facility] Appearance Urine Clear [facility] PH 5.5 5.0 - 9.0 [facility] Glucose Urine UA Negative Negative mg/dL [facility] Urine Blood Large (3+)(A) Negative [facility] Specific [place] - Urine 1.025 1.005 - 1.025 [facility] Urine Protein Negative Neg-Trace mg/dL [facility] Urine Ketones Negative Negative mg/dL [facility] Nitrite Urine Negative Negative [facility] Leukocyte Esterase Urine Negative Negative [facility] 06/03/2023 4:49 PM EDT 06/03/2023 4:52 PM EDT Narrative [facility] - 06/03/2023 4:57 PM EDT Urine, Clean Catch us Generic External Data Provider LAB URINE ORDERAB LES Final Result [facility] [address] [place] [phone] * Influenza A B2 ID NOW ([place]) (06/03/2023 4:34 PM EDT) IDNOW SERIAL# [id number] [facility] Influenza A Negative Negative [facility] Influenza B2 Negative Negative [facility] Influenza A B2 Note See Note [facility] Comment:The Corona ID NOW [...] GENERAL ORDERABLES Final Result Performing Organization Address City/[facility]/ZIP Co de Phone Number [facility] [address] [place] [phone] * COVID-19 ID NOW ([place]) (06/03/2023 4:34 PM EDT) IDNOW SERIAL# [id number] [facility] COVID-19 TEST Negative Negative [facility] COVID-19 NOTE See Note [facility] Comment: Results are for the identification of SARS-CoV2 RNA. TheSARS-CoV2 RNA is generally detectable in respiratory samplesduring the acute phase of infection. Positive results areindicative of the presence of SARS-CoV-2 RNA; clinicalcorrelation with patient history and other diagnosticinformation is necessary to determine patient infectionstatus. Positive results do not rule out bacterial infectionor co- infection with other viruses.Testing facilities within the [facility] and [facility] are required to report all positive [...] LAB MOLECULAR ARNAV GNOSTICS ORDERABLES Final Result [facility] [address] [place] [phone] documented in this encounter Visit Diagnoses Diagnosis Pain in both hands documented in this encounter Care Teams General Dentist/Owner Relationship Specialty Start Date End Date Mackenzie Estrada MD [address] [place] [address] PCP - General Family Medicine 07/10/20 Casper Magaña, JENNIFER [address] [place] [address] Registered Nurse Family Medicine 01/18/25 01/18/25 Ruth Ann Price 02/19/25 02/19/25 Ruth Ann Price 02/19/25 02/28/25 Ruth Ann Price 03/29/25 04/03/25 Hemaaltha Pretty Financial ManagerManager Implementation 01/02/25 documented as of this encounter
--- OUTSIDE RECORDS SUMMARY | 2025-06-25 08:45 | XMS_ITS | Encounter Summary ---
Author Organization [employer] Address [address] 7t [place] [address] Care Team Providers Care Store Receiver Name Role Phone Macknezie Estrada MD Primary Care Provider [phone] Casper Magaña RN Unavailable [phone] Ruth Ann Price Unavailable Unavailable Ruth Ann Price Unavailable Ruth Ann Price Unavailable Encounter Details Date Type Department Care Team (Late st Contact Info) Description 10/03/2023 Orders Only [facility] MEDICINE [address] [place] [address] Mackenzie Estrada MD [address] [place], [place] [phone] Bacterial vaginosis (Primary Dx) Social History Tobacco [...] 9:45 AM EST Office Visit [facility] MED[facility] [address] [place] [address] documented as of this encounter Goals Goal Patient Goal Type Associated Problems Recent Progress Patient-Stated? Author Quit using tobacco (cigarettes, smokeless, etc) Tobacco Use Corey Cornell, Bailey documented as of this encounter Visit Diagnoses Diagnosis Bacterial vaginosis- Primary Unspecified vaginitis and vulvovaginitis documented in this encounter Care Teams Store Receiver Relationship Specialty Start Date End Date Mackenzie Estrada MD [address] [place] [address] PCP - General Family Medicine 07/10/20 Casper Magaña, JENNIFER [address] [place] [address] Registered Nurse Family Medicine 01/18/25 01/18/25 Ruth Ann Price 02/19/25 02/19/25 Ruth Ann Price 02/19/25 02/28/25 Ruth Ann Price 03/29/25 04/03/25 Hemalatha Pretty Communication LecturerClay Miller 01/02/25 documented as of this encounter
--- OUTSIDE RECORDS SUMMARY | 2025-06-25 08:45 | XMS_ITS | Encounter Summary ---
Author Organization [employer] Address [address] [facility] 7t [place] [address] Care Team Providers Care Glaze Maker Name Role Phone Mackenzie Estrada MD Primary Care Provider [phone] Casper Magaña RN Unavailable [phone] Ruth Ann Price Unavailable Unavailable Ruth Ann Price Unavailable Ruth Ann Price Unavailable Reason for Visit * Reason Comments Med Refill Encounter Details Date Type Department Care Team (Late st Contact Info) Description 01/12/2024 Refill [facility] MEDICINE [address] [place] [address] Mackenzie Estrada MD [address] [place] [address] Rheumatoid arthritis involving multiple sites with positive rheumatoid factor ([facility]) Social History Tobacco Use Types [...] Description 07/09/2025 9:45 AM EST Office Visit [facility] MEDICINE [address] [place] [address] documented as of this encounter Goals Goal Patient Goal Type Associated Problems Recent Progress Patient-Stated? Author Quit using tobacco (cigarettes, smokeless, etc) Tobacco Use No Corey Lin, Bailey documented as of this encounter Visit Diagnoses Diagnosis Rheumatoid arthritis involving multiple sites with positive rheumatoid factor (CMS/HCC) (HCC) documented in this encounter Care Teams Glaze Maker Relationship Specialty Start Date End Date Mackenzie Estrada MD [address] [place] [address] PCP - General Family Medicine 07/10/20 Casper Magaña, RN [address] [place] [address] Registered Nurse Family Medicine 01/18/25 01/18/25 Ruth Ann Price 02/19/25 02/19/25 Ruth Ann Price 02/19/25 02/28/25 Ruth Ann Price 03/29/25 04/03/25 Hemalatha Pretty Mud WorkerAdmitting Clerk 01/02/25 documented as of this encounter
--- OUTSIDE RECORDS SUMMARY | 2025-06-25 08:45 | XMS_ITS | Encounter Summary ---
Author Organization [employer] Address [address] [facility] 7t [place] [address] Care Team Providers Care Histology Supervisor Name Role Phone Mackenzie Estrada MD Primary Care Provider [phone] Casper Magaña RN Unavailable Ruth Ann Price Unavailable Unavailable Ruth Ann Price Unavailable Ruth Ann Price Unavailable Reason for Referral * Imaging (Routine) - Closed Specialty Diagnoses / Procedures Referred By Contac t Referred To Contact Radiology Diagnoses Abnormal ultrasound of pelvis Procedures MR Pelvis w/ and w/o Contrast Mackenzie Estrada MD [address] [place] [address] Phone: tel: fax: [address] [address] Phone: tel: fax: Referral ID Status Reason Start Date Expiration Date Visits Re quested Visits Authorized [id number] Closed 10/31/2023 10/30/2024 1 1 Encounter Details Date Type Department Care Team (Late st Contact Info) Description 10/31/2023 Orders Only [facility] MEDICINE [address] [place], [place] [phone] Mackenzie Estrada MD [address] [place], [place] [phone] Abnormal ultrasound of pelvis (Primary Dx) Social [...] which I need to talk to her human capital manager about. Thank you! documented in this encounter Plan of Treatment Upcoming Encounters Date Type Department Care Team (Late st Contact Info) Description 07/09/2025 9:45 AM EST Office Visit [facility] MEDICINE [address] [place] [address] documented as of this encounter Goals Goal [...] PM EDT Narrative 12/07/2023 9:11 AM EDT [address] [address] Magnetic Resonance Report Signed Patient: Ginette Arceo MR #: [id number] : 1975 Acct:[id number] Age/Sex: 48 / F ADM Date: 11/25/23 Loc: HO.MRI Attending Dr: Mackenzie Estrada MD Ordering Physician: Mackenzie Estrada Date of Service: 11/25/23 Procedure(s): MR pelvis wo/w con Accession Number(s): [id number] cc: Mackenzie Estrada EXAMINATION: MR PELVIS WITHOUT [...] measures 7.8 x 3.6 x 4.3 cm (vhmwal-vs-fherul x AP x transverse dimension). The junctional [...] in OV> 12/07/23 0907 DD/ 1505 TD/TT: Dehydrogenation Converter Helper: PD Procedure Note Donotuseinterpreter, Image - 12/07/[address] [address] Magnetic Resonance Report Signed Patient: Ginette Arceo #: [id number] : 1975Acct:[id number] Age/Sex: 48 / FADM Date: 11/25/23 Loc: .MRI Attending Dr: Mackenzie Estrada MD Ordering Physician: Mackenzie Estrada Date of Service: 11/25/23 Procedure(s): MR pelvis wo/w con Accession Number(s): [id number] cc: Mackenzie Estrada EXAMINATION: MR PELVIS WITHOUT [...] measures 7.8 x 3.6 x 4.3 cm (oxusul-jx-knvaxq x AP x transverse dimension). The junctional [...] in OV> 12/07/23 0907 DD/ 1505 TD/TT: Dehydrogenation Converter Helper: PD us Mackenzie Estrada MD IMG MRI PROCEDURES Final Resul t documented in this encounter Visit Diagnoses Diagnosis Abnormal ultrasound of pelvis- Primary documented in this encounter Care Teams Histology Supervisor Relationship Specialty Start Date End Date Mackenzie Estrada MD [address] [place] [address] PCP - General Family Medicine 07/10/20 Casper Magaña, RN [address] [place] [address] Registered Nurse Family Medicine 01/18/25 01/18/25 Ruth Ann Price 02/19/25 02/19/25 Ruth Ann Price 02/19/25 02/28/25 Ruth Ann Price 03/29/25 04/03/25 Hemalatha Pretty Tool WorkerLiner Worker 01/02/25 documented as of this encounter
--- OUTSIDE RECORDS SUMMARY | 2025-06-25 08:46 | XMS_ITS | Encounter Summary ---
Author Organization [employer] Address [address] [facility] [address]t [place] [address] Care Team Providers Care Claims Sorter Name Role Phone Mackenzie Estrada MD Primary Care Provider [phone] Casper Magaña RN Unavailable [phone] Ruth Ann Price Unavailable Unavailable Ruth Ann Price Unavailable Ruth Ann Price Unavailable Encounter Details Date Type Department Care Team (Late st Contact Info) Description 05/10/2024 Orders Only [facility] MEDICINE [address] [place] [address] Mackenzie Estraad MD [address] [place] [address] Social History Tobacco Use Types Packs/Day Years [...] Description 07/09/2025 9:45 AM EST Office Visit [facility] MEDICINE [address] [place] [address] documented as of this encounter Goals Goal [...] documented as of this encounter Care Teams Claims Sorter Relationship Specialty Start Date End Date Mackenzie Estrada MD [address] [place] [address] PCP - General Family Medicine 07/10/20 Casper Magaña RN [address] [place] [address] Registered Nurse Family Medicine 01/18/25 01/18/25 Ruth Ann Price 02/19/25 02/19/25 Ruth Ann Price 02/19/25 02/28/25 Ruth Ann Price 03/29/25 04/03/25 Hemalatha Pretty Supervisor Water Treatment PlantHearing Healthcare Practitioner 01/02/25 documented as of this encounter
--- OUTSIDE RECORDS SUMMARY | 2025-06-25 08:46 | XMS_ITS | Encounter Summary ---
Author Organization [facility] Address [address] [facility] 7t [place] [address] Care Team Providers Care Fish Seiner Name Role Phone Mackenzie Estrada MD Primary Care Provider [phone] Casper Magaña RN Unavailable [phone] Ruth Ann Price Unavailable Unavailable Ruth Ann Price Unavailable Ruth Ann Price Unavailable Reason for Visit * Reason Comments Med Refill Encounter Details Date Type Department Care Team ([facility] Contact Info) Description 08/25/2022 Refill [facility] MEDICINE [address] [place] [address] Mackenzie Estrada MD [address] [place] [address] Pain in both hands Social History Tobacco [...] Team ([facility] Contact Info) Description 07/09/2025 9:45 AM EST Office Visit [facility] MEDICINE [address] [place] [address] documented as of this encounter Visit Diagnoses Diagnosis Pain in both hands documented in this encounter Care Teams Fish Seiner Relationship Specialty Start Date End Date Mackenzie Estrada MD [address] [place] [address] PCP - General Family Medicine 07/10/20 Casper Magaña, JENNIFER [address] [place] [address] Registered Nurse Family Medicine 01/18/25 01/18/25 Ruth Ann Price 02/19/25 02/19/25 Ruth Ann Price 02/19/25 02/28/25 Ruth Ann Price 03/29/25 04/03/25 Hemalatha Pretty Mud Jack OperatorLunch Truck Driver 01/02/25 documented as of this encounter
--- OUTSIDE RECORDS SUMMARY | 2025-06-25 08:46 | XMS_ITS | Encounter Summary ---
Author Organization [employer] Address [address] [facility] 7t [place] [address] Care Team Providers Care Associate Software Engineer Name Role Phone Mackenzie Estrada MD Primary Care Provider [phone] Casper Magaña RN Unavailable [phone] Ruth Ann Price Unavailable Unavailable Ruth Ann Price Unavailable Ruth Ann Price Unavailable Reason for Visit * Reason Comments Med Refill Encounter Details Date Type Department Care Team (Late st Contact Info) Description 08/26/2023 Refill [facility] MEDICINE [address] [place] [address] Sisi Kennedy, FARHEEN [address] [place] [address] Viral upper respiratory tract infection Social History [...] EST Office Visit [facility] [address] [place] [address] documented as of this encounter Goals Goal Patient Goal Type Associated Problems Recent Progress Patient-Stated? Author Quit using tobacco (cigarettes, smokeless, etc) Tobacco Use Corey Cornell, PharmD documented as of this encounter Visit Diagnoses Diagnosis Viral upper respiratory tract infection Acute upper respiratory infections of unspecified site documented in this encounter Care Teams Associate Software Engineer Relationship Specialty Start Date End Date Mackenzie Estrada MD [address] [place] [address] PCP - General Family Medicine 07/10/20 Casper Magaña, JENNIFER [address] [place] [address] Registered Nurse Family Medicine 01/18/25 01/18/25 Ruth Ann Price 02/19/25 02/19/25 Ruth Ann Price 02/19/25 02/28/25 Ruth Ann Price 03/29/25 04/03/25 Hemalatha Pretty Assistant Professor Of PhysicsAviation Support Equipment Repairer 01/02/25 documented as of this encounter
--- OUTSIDE RECORDS SUMMARY | 2025-06-25 08:46 | XMS_ITS | Encounter Summary ---
Author Organization [employer] Address [address] [facility] 7t [place] [address] Care Team Providers Care Medical Editor Name Role Phone Mackenzie Estrada MD Primary Care Provider [phone] Ruth Ann Price Unavailable Reason for Visit * Reason Comments Med Refill Encounter Details Date Type Department Care Team (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
--- OUTSIDE RECORDS SUMMARY | 2025-06-25 08:46 | XMS_ITS | Encounter Summary ---
Author Organization [employer] Address [address] [facility] 7t [place] [address] Care Team Providers Care Building Official Name Role Phone Mackenzie Estrada MD Primary Care Provider [phone] Casper Magaña RN Unavailable [phone] Ruth Ann Price Unavailable Unavailable Ruth Ann Price Unavailable Ruth Ann Price Unavailable Reason for Visit * Reason Comments Med Refill Encounter Details Date Type Department Care Team (Late st Contact Info) Description 07/27/2023 Refill [facility] MEDICINE [address] [place] [address] Name, MD Mark [address] [place] [address] Pain in both hands Social History Tobacco [...] Description 07/09/2025 9:45 AM EST Office Visit [facility] MEDICINE [address] [place] [address] documented as of this encounter Goals Goal Patient Goal Type Associated Problems Recent Progress Patient-Stated? Author Quit using tobacco (cigarettes, smokeless, etc) Tobacco Use Corey Cornell, KelechiD documented as of this encounter Visit Diagnoses Diagnosis Pain in both hands documented in this encounter Care Teams Building Official Relationship Specialty Start Date End Date Mackenzie Estrada MD [address] [place] [address] PCP - General Family Medicine 07/10/20 Casper Magaña, JENNIFER [address] [place] [address] Registered Nurse Family Medicine 01/18/25 01/18/25 Ruth Ann Price 02/19/25 02/19/25 Ruth Ann Price 02/19/25 02/28/25 Ruth Ann Price 03/29/25 04/03/25 Hemalatha Pretty Sterile Processing TechnologistEnglish Composition Teacher 01/02/25 documented as of this encounter
--- OUTSIDE RECORDS SUMMARY | 2025-06-25 08:46 | XMS_ITS | Encounter Summary ---
Author Organization [employer] Address [address] [facility] 7t [place] [address] Care Team Providers Care Residential Program Director Name Role Phone Mackenzie Estrada MD Primary Care Provider [phone] Casper Magaña RN Unavailable [phone] Ruth Ann Price Unavailable Unavailable Ruth Ann Price Unavailable Ruth Ann Price Unavailable Reason for Visit * Reason Comments Med Refill Encounter Details Date Type Department Care Team (Late st Contact Info) Description 07/26/2023 Refill [facility] MEDICINE [address] [place] [address] Name, MD Mark [address] [place] [address] Pain in both hands Social History Tobacco [...] Description 07/09/2025 9:45 AM EST Office Visit [facility]INE [address] [place] [address] documented as of this encounter Goals Goal Patient Goal Type Associated Problems Recent Progress Patient-Stated? Author Quit using tobacco (cigarettes, smokeless, etc) Tobacco Use Corey Cornell, KelechiD documented as of this encounter Visit Diagnoses Diagnosis Pain in both hands documented in this encounter Care Teams Residential Program Director Relationship Specialty Start Date End Date Mackenzie Estrada MD [address] [place] [address] PCP - General Family Medicine 07/10/20 Casper Magaña, JENNIFER [address] [place] [address] Registered Nurse Family Medicine 01/18/25 01/18/25 Ruth Ann Price 02/19/25 02/19/25 Ruth Ann Price 02/19/25 02/28/25 Ruth Ann Price 03/29/25 04/03/25 Hemalatha Pretty Sales Operations DirectorKnife Machine Operator 01/02/25 documented as of this encounter
--- OUTSIDE RECORDS SUMMARY | 2025-06-25 08:46 | XMS_ITS | Encounter Summary ---
Author Organization [email or web address] Address [address] [facility] [address] 7t [place] [address] Care Team Providers Care Pharmaceutical Process Engineer Name Role Phone Mackenzie Estrada MD Primary Care Provider [phone] Casper Magaña RN Unavailable [phone] Ruth Ann Price Unavailable Unavailable Ruth Ann Price Unavailable Ruth Ann Price Unavailable Encounter Details Date Type Department Care Team (Late st Contact Info) Description 05/21/2024 Telephone [facility] [address] [place] [address] Mackenzie Estrada MD [address] [place] [address] Social History Tobacco Use Types Packs/Day Years [...] Description 07/09/2025 9:45 AM EST Office Visit [facility] [address] [place] [address] documented as of this encounter Goals Goal [...] documented as of this encounter Care Teams Pharmaceutical Process Engineer Relationship Specialty Start Date End Date Mackenzie Estrada MD [address] [place] [address] PCP - General Family Medicine 07/10/20 Casper Magaña RN [address] [place] [address] Registered Nurse Family Medicine 01/18/25 01/18/25 Ruth Ann Price 02/19/25 02/19/25 Ruth Ann Price 02/19/25 02/28/25 Ruth Ann Price 03/29/25 04/03/25 Hemalatha Pretty Metal WelderClock Assembler 01/02/25 documented as of this encounter
--- OUTSIDE RECORDS SUMMARY | 2025-06-25 08:46 | XMS_ITS | Encounter Summary ---
Author Organization [employer] Address [address] [facility] 7t [place] [address] Care Team Providers Care Revenue Field Auditor Name Role Phone Mackenzie Estrada MD Primary Care Provider [phone] Casper Magaña RN Unavailable [phone] Ruth Ann rPice Unavailable Unavailable Ruth Ann Price Unavailable Ruth Ann Price Unavailable Reason for Visit * Reason Comments Med Refill Encounter Details Date Type Department Care Team (Late st Contact Info) Description 07/21/2023 Refill [facility] [address] [place] [address] Name, MD Mark [address] [place] [address] Pain in both hands Social History Tobacco [...] 9:45 AM EST Office Visit [facility] [address] [place] [address] documented as of this encounter Goals Goal Patient Goal Type Associated Problems Recent Progress Patient-Stated? Author Quit using tobacco (cigarettes, smokeless, etc) Tobacco Use Corey Cornell, KelechiD documented as of this encounter Visit Diagnoses Diagnosis Pain in both hands documented in this encounter Care Teams Revenue Field Auditor Relationship Specialty Start Date End Date Mackenzie Estrada MD [address] [place] [address] PCP - General Family Medicine 07/10/20 Casper Magaña, JENNIFER [address] [place] [address] Registered Nurse Family Medicine 01/18/25 01/18/25 Ruth Ann Price 02/19/25 02/19/25 Ruth Ann Price 02/19/25 02/28/25 Ruth Ann Price 03/29/25 04/03/25 Hemalatha Pretty Heat Set OperatorSearch Engine Optimization Specialist 01/02/25 documented as of this encounter
--- OUTSIDE RECORDS SUMMARY | 2025-06-25 08:46 | XMS_ITS | Encounter Summary ---
Author Organization [employer] Address 75 [facility] 7t [place] [address] Care Team Providers Care Residential Counselor Name Role Phone Mackenzie Estrada MD Primary Care Provider [phone] Casper Magaña RN Unavailable [phone] Ruth Ann Price Unavailable Unavailable Ruth Ann Price Unavailable Ruth Ann Price Unavailable Reason for Visit * Reason Comments Med Refill Encounter Details Date Type Department Care Team (Late st Contact Info) Description 07/28/2022 Refill [facility] [address] [place] [address] Mackenzie Estrada MD [address] [place] [address] Pain in both hands Social History Tobacco [...] Description 07/09/2025 9:45 AM EST Office Visit [facility] [address] [place] [address] documented as of this encounter Visit Diagnoses Diagnosis Pain in both hands documented in this encounter Care Teams Residential Counselor Relationship Specialty Start Date End Date Mackenzie Estrada MD [address] [place] [address] PCP - General Family Medicine 07/10/20 Casper Magaña RN [address] [place] [address] Registered Nurse Family Medicine 01/18/25 01/18/25 Ruth Ann Price 02/19/25 02/19/25 Ruth Ann Price 02/19/25 02/28/25 Ruth Ann Price 03/29/25 04/03/25 Hemalatha Pretty Carburizing Furnace OperatorBoat Diesel Motor Mechanic 01/02/25 documented as of this encounter
--- OUTSIDE RECORDS SUMMARY | 2025-06-25 08:46 | XMS_ITS | Encounter Summary ---
Author Organization [employer] Address [address] [facility] 7t [place] [address] Care Team Providers Care Management Technician Name Role Phone Mackenzie Estrada MD Primary Care Provider [phone] Casper Magaña RN Unavailable [phone] Ruth Ann Price Unavailable Unavailable Ruth Ann Price Unavailable Ruth Ann Price Unavailable Reason for Visit * Reason Comments Med Refill Encounter Details Date Type Department Care Team ([facility] Contact Info) Description 09/22/2022 Refill [facility] [address] [place] [address] Sarika Palacios, RHONA 230 [place] [address] Tinea pedis of both feet Social History [...] ([facility] Contact Info) Description 07/09/2025 9:45 AM EST Office Visit [facility] [address] [place] [address] documented as of this encounter Visit Diagnoses Diagnosis Tinea pedis of both feet documented in this encounter Care Teams Management Technician Relationship Specialty Start Date End Date Mackenzie Estrada MD [address] [place] [address] PCP - General Family Medicine 07/10/20 Casper Magaña, JENNIFER [address] [place] [address] Registered Nurse Family Medicine 01/18/25 01/18/25 Ruth Ann Price 02/19/25 02/19/25 Ruth Ann Price 02/19/25 02/28/25 Ruth Ann Price 03/29/25 04/03/25 Hemalatha Pretty Refueling Ramp AttendantComputer Systems Security Analyst 01/02/25 documented as of this encounter
--- OUTSIDE RECORDS SUMMARY | 2025-06-25 08:46 | XMS_ITS | Encounter Summary ---
Author Organization [employer] Address [address] [facility] 7t [place] [address] Care Team Providers Care Behavior Interventionist Name Role Phone Mackenzie Estrada MD Primary Care Provider [phone] Casper Magaña RN Unavailable [phone] Ruth Ann Price Unavailable Unavailable Ruth Ann Price Unavailable Ruth Ann Price Unavailable Reason for Visit * Reason Onset Date Comments Appointment Request 08/16/2023 Encounter Details Date Type Department Care Team ([facility] st Contact Info) Description 08/16/2023 Telephone [facility] [address] [place], [place] [phone] Mackenzie Estrada MD [address] [place], [place] [phone] Appointment Request Social History Tobacco Use Types [...] be seen today. Please contact pt @ [phone] Iraqi Speaker documented in this encounter Plan of Treatment Upcoming Encounters Date Type Department Care Team (Late st Contact Info) Description 07/09/2025 9:45 AM EST Office Visit [facility] MED[facility]INE [address] [place] [address] documented as of this encounter Goals Goal Patient Goal Type Associated Problems Recent Progress Patient-Stated? Author Quit using tobacco (cigarettes, smokeless, etc) Tobacco Use No Corey Lin, PharmD documented as of this encounter Visit Diagnoses Not on filedocumented in this encounter Care Teams Behavior Interventionist Relationship Specialty Start Date End Date Mackenzie Estrada MD [address] [place] [address] PCP - General Family Medicine 07/10/20 Casper Magaña, RN [address] [place] [address] Registered Nurse Family Medicine 01/18/25 01/18/25 Ruth Ann Price 02/19/25 02/19/25 Ruth Ann Price 02/19/25 02/28/25 Ruth Ann Price 03/29/25 04/03/25 Hemalatha Pretty Belly PackerTable Keeper 01/02/25 documented as of this encounter
--- OUTSIDE RECORDS SUMMARY | 2025-06-25 08:46 | XMS_ITS | Clinical Summary ---
Author Organization [facility] Address [address] [place] [address] Support Name Relationship Address Phone Brayden Hernandez Emergency Contact [address] [place] [address] Care Team Providers Care Unix System Administrator Name Role Phone Abdullahi Lizarraga MD Primary Care Provider [phone] Allergies Active Allergy Reactions Criticality Noted Date [...] age to complete this topic Care Teams Unix System Administrator Relationship Specialty Start Date End Date Abdullahi Lizarraga MD [address] [place] [address] PCP - General Nephrology 03/10/18
[2025-07-04 12:17] VITALS: BMI 34.6
[2025-07-09 16:38] VITALS: BMI 36.9
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
[2025-07-17 08:44] VITALS: BP 127/73; PULSE 57; RESP 16; TEMP 36.2; O2SAT 97
[2025-07-17] MEDS: Lactated Ringers 1,000 ML 100 ML IVCONT (08:52)
--- NOTE | 2025-07-17 12:15 | MHC.SHP ---
Pre-Procedural Eval Section A - 24 Hr Update-Section A only Date of Service: 07/17/25 The patient is an INPATIENT: No Changes since office visit: Yes Patient answered all questions; No Cold of Flu in the past 2 weeks, No New Medical Problems and No Changes in Medication The patient has been examined within 24 hours of the surgical procedure. The History & Physical has been completed within 30 days and I have reviewed it.: No Section B - Complete if H&P > 30 days Chief Complaint: Epidermal cyst Details of Present Illness: No change in symptoms left elbow. Relevant Family History (Specify if Yes): No Relevant Social History: None Present Medications: see Short Stay Collaborative assessment Medical History: No relevant PMH History of Previous Operations: No relevant previous surgery Allergies: Allergies Allergy/AdvReac Type Severity Reaction Status Date / Time almond (ALMONDS) Allergy Severe ANAPHYLAXIS Verified 07/17/25 08:33 adhesive tape (ADHESIVE TAPE) Allergy Intermediate RASH Verified 07/17/25 08:33 morphine (MORPHINE) Allergy Intermediate GI UPSET, Verified 07/17/25 08:33 difficulty breathing leflunomide AdvReac Intermediate twitching Verified 07/17/25 08:33 tramadol (TRAMADOL) AdvReac Unknown NAUSEA & Verified 07/17/25 08:33 VOMITING Review of Systems Sugical H&P ROS: Negative: Constitution, Cardiovascular, Respiratory, Neurological, Psychiatric, Hem-Onc, Allergic/Immunologic, Gastrointestinal, Genitourinary, Musculoskeletal, Integumentary, Endocrine and Eyes/Ears/Nose/Throat Exam Surgical H&P Exam: Normal: HEENT, Normal: Heart, Normal: Lungs, Normal: Extremities, Normal: Abdomen, Normal: Skin and Normal: Neurological Plan Diagnosis/Plan: Unchanged I have reviewed the history and physical and performed a pertinent physical examination on my patient. No changes have occurred unless specified. Time Spent With Patient Time: Total time managing care of this patient today ____ minutes.
--- NOTE | 2025-07-17 13:11 | W.PM.OPN ---
Operative Note Operative Note Date of Service: 07/17/25 Narrative: Preoperative diagnosis: Epidermal inclusion cyst left elbow Postoperative diagnosis:same Procedure: Excision of epidermal inclusion cyst left elbow Surgeon: Morgan Dean MD Toddler Caregiver: Giovana Lofton PA-C; Nora Tabares, MS-3 Anesthesia: MAC Indications for procedure: 50 year old female with a painful incision cyst 2 cm diameter at the left elbow, which patient has requested excision. She has another on the right elbow which is asymptomatic. Operative findings: 2 cm epidermal inclusion cyst left elbow. Specimen: epidermal inclusion cyst left elbow Estimated blood loss: 2 mls Complications: none Procedure details: Patient was brought to the OR and placed in a supine position. After administering light sedation she was rotated to a sloppy right lateral decubitus position. Her left arm was brought over her chest and secured in place. Skin over the right elbow was prepped with ChloraPrep and draped in a sterile fashion. A surgical time-out was called the consent confirmed. Patient received preoperative antibiotics and Venodyne boots were in place. Local anesthesia was then infiltrated circumferentially around the palpable cyst. An elliptical incision oriented longitudinally was then made around the 2 cm cyst. Incision was carried down around the cyst wall and the cyst completely excised. This was passed off the table and sent to pathology for further examination. Wounds were then irrigated with saline solution and suctioned dry. Dermis was then reapproximated using interrupted 3-0 Polysorb sutures. Skin was then closed using interrupted 4-0 nylon sutures. Sterile dressings consisting of 2 x 2 gauze and Tegaderm were then applied. The patient tolerated the procedure well. Sponge, instrument, and needle counts were reported as correct. The patient was transferred to PACU in stable condition.
[2025-07-17 13:15] VITALS: BP 136/76; PULSE 72; RESP 16; TEMP 36.2; O2SAT 96
[2025-07-17 13:37] VITALS: BP 118/76; PULSE 69; RESP 18; TEMP 36.4; O2SAT 97
[2025-07-17] MEDS: oxyCODONE HCl Immed Release 5 MG TABLET PO (13:37)
== END 2025-07-17 14:19 | disposition home or self-care (01) ==
PROVIDERS: PCP General Practice; Visit Provider Surgery
PROC: (CPT 11402; principal; 2025-07-17 13:30)
DX: L72.0 Epidermal cyst (principal); M79.9 Soft tissue disorder, unspecified; L92.8 Other granulomatous disorders of the skin and subcutaneous tissue; M05.89 Other rheumatoid arthritis with rheumatoid factor of multiple sites; M32.9 Systemic lupus erythematosus, unspecified
CPT/HCPCS: 11402; 88304; 88305; J0690; J1100; J2003; J2250; J2405; J2704; J3010

== ENCOUNTER → 2025-07-17 07:59 | Outpatient (BNV) | payer MEDICAID, SELFPAY | PROVIDERS: PCP General Practice; Visit Provider Surgery | DX: L72.0 Epidermal cyst (principal) | CPT/HCPCS: 11402 ==

== ENCOUNTER 2025-07-30 10:03 | Outpatient (AMB) | payer MEDICAID, SELFPAY ==
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
--- OUTSIDE RECORDS SUMMARY | 2025-07-30 13:13 | XMS_ITS | Encounter Summary ---
Author Organization [employer] Address [address] [facility] [address] 7t [place] [address] Care Team Providers Care Solids Control Technician Name Role Phone Mackenzie Estrada MD Primary Care Provider Casper Magaña RN Unavailable [phone] Ruth Ann Price Unavailable Unavailable Ruth Ann Price Unavailable Ruth Ann Price Unavailable Marcelle Mayorga RN Unavailable [phone] Denisse Molina Unavailable Reason for Visit * Reason Comments Med Refill Encounter Details Date Type Department Care Team (Late st Contact Info) Description 08/19/2024 Refill [facility] MEDICINE [address] [place], [place] [phone] Mackenzie Estrada MD 230 [place], [place] [phone] Social History Tobacco Use Types Packs/Day Years [...] Care Team (Late st Contact Info) Description 09/10/2025 9:45 AM EST Office Visit [facility] MEDICINE [address] [place] [address] 09/11/2025 9:00 AM EST Office Visit [facility] MEDICINE [address] [place] [address] Mackenzie Estrada MD [address] [place] [address] documented as of this encounter Goals Goal [...] documented as of this encounter Care Teams Solids Control Technician Relationship Specialty Start Date End Date Mackenzie Estrada MD [address] [place], [place] [phone] PCP - General Family Medicine 07/10/20 Casper Magaña, RN [address] [place] [address] Registered Nurse Family Medicine 01/18/25 01/18/25 Ruth Ann Price 02/19/25 02/19/25 Ruth Ann Price 02/19/25 02/28/25 Ruth Ann Price 03/29/25 04/03/25 Marcelle Mayorga, JENNIFER 230 [place] [address] Registered Nurse Family Medicine 07/02/25 Denisse Molina 07/03/25 Hemalatha Pretty Stone Spreader OperatorHoop Punch And Coiler Operator Helper 01/02/25 documented as of this encounter
--- OUTSIDE RECORDS SUMMARY | 2025-07-30 13:13 | XMS_ITS | Encounter Summary ---
Author Organization [employer] Address 75 [facility] 7t [place] [address] Care Team Providers Care Third Rail Installer Name Role Phone Mackenzie Estrada MD Primary Care Provider [phone] Casper Magaña RN Unavailable [phone] Ruth Ann Price Unavailable Unavailable Ruth Ann Price Unavailable Ruth Ann Price Unavailable Marcelle Mayorga RN Unavailable [phone] Denisse Molina Unavailable Reason for Visit * Reason Onset Date Comments Hospital Follow-up 02/24/2024 Encounter Details Date Type Department Care Team (Late st Contact Info) Description 02/24/2024 Telephone [facility] MEDICINE 230 [place], [place] [phone] Mackenzie Estrada MD 230 [place], [place] [phone] Hospital Follow-up Social History Tobacco Use Types [...] from pt requesting a HDF appt. Hospital: [facility] Date of admission: 02/19 Discharge date: 02/23 Diagnosed: Rectal Bleeding Czech Speaker documented in this encounter Plan of Treatment Upcoming Encounters Date Type Department Care Team (Late st Contact Info) Description 09/10/2025 9:45 AM EST Office Visit [facility] MEDICINE [address] [place] [address] 09/11/2025 9:00 AM EST Office Visit [facility] [address] [place] [address] Mackenzie Estrada MD [address] [place] [address] documented as of this encounter Goals Goal Patient Goal Type Associated Problems Recent Progress Patient-Stated? Author Quit using tobacco (cigarettes, smokeless, etc) Tobacco Use Corey Cornell, KelechiD documented as of this encounter Visit Diagnoses Not on filedocumented in this encounter Care Teams Third Rail Installer Relationship Specialty Start Date End Date Mackenzie Estrada MD [address] [place] [address] PCP - General Family Medicine 07/10/20 Casper Magaña, RN [address] [place] [address] Registered Nurse Family Medicine 01/18/25 01/18/25 Ruth Ann Price 02/19/25 02/19/25 Ruth Ann Price 02/19/25 02/28/25 Ruth Ann Price 03/29/25 04/03/25 Marcelle Mayorga, JENNIFER 230 [place] [address] Registered Nurse Family Medicine 07/02/25 Denisse Molina 07/03/25 Hemalatha Pretty Sealer OperatorPharmacy Informatics Manager 01/02/25 documented as of this encounter
--- OUTSIDE RECORDS SUMMARY | 2025-07-30 13:13 | XMS_ITS | Encounter Summary ---
Author Organization [employer] Address 75 [facility] 7t [place] [address] Care Team Providers Care Lead Supply Worker Name Role Phone Mackenzie Estrada MD Primary Care Provider [phone] Ruth Ann Price Unavailable Unavailable Ruth Ann Price Unavailable Ruth Ann Price Unavailable Marcelle Mayorga RN Unavailable [phone] Denisse Molina Unavailable Reason for Visit * Reason Comments Med Refill Encounter Details Date Type Department Care Team (Late st Contact Info) Description 02/01/2025 Refill [facility] MEDICINE 230 [place], [place] [phone] Ebony Daigle MD 230 [place], [place] [phone] Social History Tobacco Use Types Packs/Day Years [...] Description 09/10/2025 9:45 AM EST Office Visit [facility] MEDICINE [address] [place] [address] 09/11/2025 9:00 AM EST Office Visit [facility] MEDICINE [address] [place] [address] Mackenzie Estrada MD [address] [place] [address] documented as of this encounter Goals Goal [...] documented as of this encounter Care Teams Lead Supply Worker Relationship Specialty Start Date End Date Mackenzie Estrada MD 230 [place] [address] PCP - General Family Medicine 07/10/20 Ruth Ann Price 02/19/25 02/19/25 Ruth Ann Price 02/19/25 02/28/25 Ruth Ann Price 03/29/25 04/03/25 Marcelle Mayorga RN 230 [place] [address] Registered Nurse Family Medicine 07/02/25 Denisse Molina 07/03/25 Hemalatha Pretty Security RepresentativeLinter Drier Operator 01/02/25 documented as of this encounter
--- OUTSIDE RECORDS SUMMARY | 2025-07-30 13:13 | XMS_ITS | Encounter Summary ---
Author Organization [employer] Address [address] [facility] [address] 7t [place] [address] Care Team Providers Care Tablet Making Machine Operator Name Role Phone Mackenzie Estrada MD Primary Care Provider [phone] Marcelle Mayorga RN Unavailable [phone] Denisse Molina Unavailable Reason for Visit * Reason Comments Med Refill Encounter Details Date Type Department Care Team (Late st Contact Info) Description 04/11/2025 Refill [facility] MEDICINE 230 [place] [address] Mackenzie Estrada MD 230 [place], [place] [phone] 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 [...] Description 09/10/2025 9:45 AM EST Office Visit [address] [address] 09/11/2025 9:00 AM EST Office Visit [facility] MEDICINE [address] [place] [address] Mackenzie Estrada MD [address] [place] [address] documented as of this encounter Goals Goal [...] documented as of this encounter Care Teams Tablet Making Machine Operator Relationship Specialty Start Date End Date Mackenzie Estrada MD [address] [place], [place] [phone] PCP - General Family Medicine 07/10/20 Marcelle Mayorga RN 230 [place] [address] Registered Nurse Family Medicine 07/02/25 Denisse Molina 07/03/25 Hemalatha Pretty Informatica DeveloperMedicare Coordinator 01/02/25 documented as of this encounter
--- OUTSIDE RECORDS SUMMARY | 2025-07-30 13:13 | XMS_ITS | Clinical Summary ---
Author Organization [facility] Address [address] [place] [address] Care Team Providers Care Safe Deposit Box Rental Clerk Name Role Phone Sanjay Cruz MD Primary Care [facility] Surgical History Surgery Date Site/Laterality Comments [...] thrombosis); COMMENT: 01/2005 Right Subclavain long term care pharmacist current use of anticoagulant 0 DX:long term care pharmacist current use of anticoagulant Acute deep vein thrombosis ( DVT) of brachial vein of right upper extremity ([facility] V24, [facility] V28) 05/09/2020 DX:Acute deep vein thrombos is (DVT) of brachial vein of right upper extremity (HCC) Axillary lymphadenopathy 05/09/2020 DX:Axil harvinder lymphadenopathy Gastroesophageal reflux disease 05/09/2020 DX:Gastroesophageal reflux disease Personal history of Hodgkin lymphoma 05/09/2020 DX:Personal history of Hodgkin lymphoma Recurrent major depressive d isorder in remission ([facility] V24) 05/09/2020 DX:Recurrent major depressiv e disorder in remission (HCC) Rheumatoid arthritis involvi ng multiple sites ([facility] V24, [facility] V28) 05/09/2020 DX:Rheumatoid arthritis invo lving multiple sites (HCC) Hodgkin's disease, nodular s clerosis, of lymph nodes of multiple sites ([facility] V24, [facility] V28) DX:Hodgkin's disease, nodul ar sclerosis, of [...] on file Sexual Orientation Not on file Plan of Treatment Health Maintenance Due Date [...] age to complete this topic Care Teams Safe Deposit Box Rental Clerk Relationship Specialty Start Date End Date Subramonia-Sanjay Espana MD [address] [place] [phone] PCP - General Internal Medicine 04/09/20
--- OUTSIDE RECORDS SUMMARY | 2025-07-30 13:13 | XMS_ITS | Encounter Summary ---
Author Organization [employer] Address 75 [facility] 7t [place] [address] Care Team Providers Care Generator Worker Name Role Phone Mackenzie Estrada MD Primary Care Provider [phone] Ruth Ann Price Unavailable Unavailable Ruth Ann Price Unavailable Ruth Ann Price Unavailable Marcelle Mayorga RN Unavailable [phone] Denisse Molina Unavailable Reason for Visit * Reason Comments Med Refill Encounter Details Date Type Department Care Team (Late st Contact Info) Description 01/24/2025 Refill [facility] MEDICINE 230 [place], [place] [phone] Ebony Daigle MD 230 [place], [place] [phone] Rheumatoid arthritis involving multiple sites with positive rheumatoid factor (CMS/HCC) Social History Tobacco Use Types Packs/Day [...] Description 09/10/2025 9:45 AM EST Office Visit [facility] MEDICINE [address] [place] [address] 09/11/2025 9:00 AM EST Office Visit [facility] MEDICINE [address] [place] [address] Mackenzie Estrada MD [address] [place] [address] documented as of this encounter Goals Goal [...] documented as of this encounter Care Teams Generator Worker Relationship Specialty Start Date End Date Mackenzie Estrada MD 230 [place] [address] PCP - General Family Medicine 07/10/20 Ruth Ann Price 02/19/25 02/19/25 Ruth Ann Price 02/19/25 02/28/25 Ruth Ann Price 03/29/25 04/03/25 Marcelle Mayorga RN 230 [place] [address] Registered Nurse Family Medicine 07/02/25 Denisse Molina 07/03/25 Hemalatha Pretty [place] DemonstratorRf Design Engineer 01/02/25 documented as of this encounter
--- OUTSIDE RECORDS SUMMARY | 2025-07-30 13:13 | XMS_ITS | Encounter Summary ---
Author Organization [employer] Address [address] [facility] [address] [place] [address] Care Team Providers Care Nut Tightener Name Role Phone Mackenzie Estrada MD Primary Care Provider [phone] Casper Magaña RN Unavailable [phone] Ruth Ann Price Unavailable Unavailable Ruth Ann Price Unavailable Ruth Ann Price Unavailable Marcelle Mayorga RN Unavailable [phone] Denisse Molina Unavailable Encounter Details Date Type Department Care Team (Late st Contact Info) Description 06/03/2023 Orders Only [facility] MEDICINE 230 [place], [place] [phone] Mackenzie Estrada MD 230 [place], [place] [phone] Pain in both hands Social History Tobacco [...] Description 09/10/2025 9:45 AM EST Office Visit [facility] MEDICINE [address] [place] [address] 09/11/2025 9:00 AM EST Office Visit [facility] MEDICINE [address] [place] [address] Mackenzie Estrada MD [address] [place] [address] documented as of this encounter Goals Goal [...] PM EST Narrative 06/03/2023 5:47 PM EDT [address] [address] XRay Report Signed Patient: Ginette Arceo MR #: [id number] : 1975 Acct:[id number] Age/Sex: 47 / F ADM Date: 06/25/23 Loc: HO.ED Attending Dr: Ordering Physician: Treasure Clemons Date of Service: 06/25/23 Procedure(s): XR chest 2V Accession Number(s): [id number] cc: Mackenzie Estrada; Treasure Clemons EXAMINATION: XR [...] in OV> 06/25/23 1230 DD/ 1215 TD/TT: [employer] Hand Finisher: [facility] Procedure Note Donotuseinterpreter, Image - 06/25/[address] [address] XRay Report Signed Patient: Ginette ArceoMR #: [id number] : 1975Acct:[id number] Age/Sex: 47 / FADM Date: 06/25/23 Loc: HO.ED Attending Dr: Ordering Physician: Treasure Clemons Date of Service: 06/25/23 Procedure(s): XR chest 2V Accession Number(s): [id number] cc: Mackenzie Estrada; Treasure Clemons EXAMINATION: XR [...] in OV> 06/25/23 1230 DD/ 1215 TD/TT: [employer] Hand Finisher: [facility] External Provider IMG XR PROCEDURES Edited Result - Final * (ABNORMAL) Urinalysis, Complete, with Reflex to Culture (06/03/2023 4:49 PM EDT) Color Urine Yellow [facility] Appearance Urine Clear [facility] PH 5.5 5.0 - 9.0 [facility] Glucose Urine UA Negative Negative mg/dL [facility] Urine Blood Large (3+)(A) Negative [facility] Specific Rives - Urine 1.025 1.005 - 1.025 [facility] Urine Protein Negative Neg-Trace mg/dL [facility] Urine Ketones Negative Negative mg/dL [facility] Nitrite Urine Negative Negative [facility] Leukocyte Esterase Urine Negative Negative [facility] RBC Urine >20(A) 0 - 2 /HPF [facility] Urine WBC 0-5 0 - 5 /HPF [facility] Urine Squamous Epithelial Cell 11-20 0 - 2 /HPF [facility] Urine Bacteria 1+ None Seen [facility] Hyaline Casts, Urine 0-2 0 - 2 /LPF [facility] 06/03/2023 4:49 PM EDT 06/03/2023 4:52 PM EDT Narrative [facility] - 06/03/2023 5:00 PM EDT Urine, Clean Catch Generic External Data Provider LAB URINE ORDERAB LES Final Result Performing Organization Address [facility] de Phone Number [facility] [address] [place] [address] [phone] * (ABNORMAL) Urinalysis w/reflex microscopic (06/03/2023 4:49 PM EDT) Color Urine Yellow [facility] Appearance Urine Clear [facility] PH 5.5 5.0 - 9.0 [facility] Glucose Urine UA Negative Negative mg/dL [facility] Urine Blood Large (3+)(A) Negative [facility] Specific Rives - Urine 1.025 1.005 - 1.025 [facility] Urine Protein Negative Neg-Trace mg/dL [facility] Urine Ketones Negative Negative mg/dL [facility] Nitrite Urine Negative Negative [facility] Leukocyte Esterase Urine Negative Negative [facility] 06/03/2023 4:49 PM EDT 06/03/2023 4:52 PM EDT [facility] - 06/03/2023 4:57 PM EDT Urine, Clean Catch Generic External Data Provider LAB URINE ORDERAB LES Final Result Performing Organization Address [facility] Co de Phone Number [facility] [address] [place] [phone] * Influenza A B2 ID NOW (Corona) (06/03/2023 4:34 PM EDT) IDNOW SERIAL# [id number] [facility] Influenza A Negative Negative [facility] Influenza B2 Negative Negative [facility] Influenza A B2 Note See Note [facility] Comment:The Corona ID NOW In fluenza [...] LAB MICROBIOLOGY - GENERAL ORDERABLES Final Result [facility] [address] [place] [phone] * COVID-19 ID NOW (CORONA) (06/03/2023 4:34 PM EDT) IDNOW SERIAL# [id number] [facility] COVID-19 TEST Negative Negative [facility] COVID-19 NOTE See Note [facility] Comment: Results are for the identification of SARS-CoV2 RNA. TheSARS-CoV2 RNA is generally detectable in respiratory samplesduring the acute phase of infection. Positive results areindicative of the presence of SARS-CoV-2 RNA; clinicalcorrelation with patient history and other diagnosticinformation is necessary to determine patient infectionstatus. Positive results do not rule out bacterial infectionor co- infection with other viruses.Testing facilities within the [facility] and itsterritories are required to report [...] use by authorized laboratories.Testing performed on the 1jiajie ID NOW utilizing NAAT. 06/03/2023 4:34 PM EDT 06/03/2023 4:40 PM EDT us Generic External Data Provider LAB MOLECULAR ARNAV GNOSTICS ORDERABLES Final Result Performing Organization Address City/State/[facility] Co de Phone Number [facility] [address] [place] [phone] [phone] documented in this encounter Visit Diagnoses Diagnosis Pain in both hands documented in this encounter Care Teams Nut Tightener Relationship Specialty Start Date End Date Mackenzie Estrada MD [address] [place] [address] PCP - General Family Medicine 07/10/20 Casper Magaña RN [address] [place] [address] Registered Nurse Family Medicine 01/18/25 01/18/25 Ruth Ann Price 02/19/25 02/19/25 Ruth Ann Price 02/19/25 02/28/25 Ruth Ann Price 03/29/25 04/03/25 Marcelle Mayorga RN [address] [place] [address] Registered Nurse Family Medicine 07/02/25 Denisse Molina 07/03/25 Hemalatha Pretty Helicopter EngineerIncident Response Consultant 01/02/25 documented as of this encounter
--- OUTSIDE RECORDS SUMMARY | 2025-07-30 13:13 | XMS_ITS | Encounter Summary ---
Author Organization [employer] Address 75 [facility] 7t [place] [address] Care Team Providers Care Interior Design Faculty Member Name Role Phone Mackenzie Estrada MD Primary Care Provider [phone] Marcelle Mayorga RN Unavailable [phone] Denisse Molina Unavailable Reason for Visit * Reason Comments Med Refill Encounter Details Date Type Department Care Team (Late st Contact Info) Description 04/07/2025 Refill [facility] MEDICINE 230 [place], [place] [phone] Mackenzie Estrada MD 230 [place], [place] [phone] Social History Tobacco Use Types Packs/Day Years [...] Description 09/10/2025 9:45 AM EST Office Visit [facility] [address] [place] [address] 09/11/2025 9:00 AM EST Office Visit [facility] [address] [place] [address] Mackenzie Estrada MD [address] [place] [address] documented as of this encounter Goals Goal [...] documented as of this encounter Care Teams Interior Design Faculty Member Relationship Specialty Start Date End Date Mackenzie Estrada MD [address] [place], [place] [phone] PCP - General Family Medicine 07/10/20 Marcelle Mayorga RN [address] [place], [place] [phone] Registered Nurse Family Medicine 07/02/25 Denisse Molina 07/03/25 Hemalatha Pretty Fabric Worker SupervisorLegal Referee 01/02/25 documented as of this encounter
--- OUTSIDE RECORDS SUMMARY | 2025-07-30 13:13 | XMS_ITS | Encounter Summary ---
Author Organization [employer] Address [address] [facility] [address] [address] 7t [place] [address] Care Team Providers Care Administrative Services Manager Name Role Phone Mackenzie Estrada MD Primary Care Provider [phone] Casper Magaña RN Unavailable [phone] Ruth Ann Price Unavailable Unavailable Ruth Ann Price Unavailable Ruth Ann Price Unavailable Marcelle Mayorga RN Unavailable [phone] Denisse Molina Unavailable Encounter Details Date Type Department Care Team (Late st Contact Info) Description 10/03/2023 Orders Only [facility] MEDICINE 230 [place], [place] [phone] Mackenzie Estrada MD 230 [place], [place] [phone] Bacterial vaginosis (Primary Dx) Social History Tobacco [...] Description 09/10/2025 9:45 AM EST Office Visit [facility] MEDICINE [address] [place] [address] 09/11/2025 9:00 AM EST Office Visit [facility] MEDICINE [address] [place] [address] Mackenzie Estrada MD [address] [place] [address] documented as of this encounter Goals Goal Patient Goal Type Associated Problems Recent Progress Patient-Stated? Author Quit using tobacco (cigarettes, smokeless, etc) Tobacco Use No Corey Lin, Bailey documented as of this encounter Visit Diagnoses Diagnosis Bacterial vaginosis- Primary Unspecified vaginitis and vulvovaginitis documented in this encounter Care Teams Administrative Services Manager Relationship Specialty Start Date End Date Mackenzie Estrada MD [address] [place] [address] PCP - General Family Medicine 07/10/20 Casper Magaña, RN [address] [place] [address] Registered Nurse Family Medicine 01/18/25 01/18/25 Ruth Ann Price 02/19/25 02/19/25 Ruth Ann Price 02/19/25 02/28/25 Ruth Ann Price 03/29/25 04/03/25 Marcelle Mayorga, RN [address] [place] [address] Registered Nurse Family Medicine 07/02/25 Denisse Molina 07/03/25 Hemalatha Pretty Svp MonetizationCommercial Construction Estimator 01/02/25 documented as of this encounter
--- OUTSIDE RECORDS SUMMARY | 2025-07-30 13:13 | XMS_ITS | Encounter Summary ---
Author Organization [employer] Address [address] [facility] [address] [place] [address] Care Team Providers Care Roofer Metal Name Role Phone Mackenzie Estrada MD Primary Care Provider [phone] Marcelle Mayorga RN Unavailable [phone] Denisse Molina Unavailable Reason for Referral * Consultation (Routine) - Authorized Specialty Diagnoses / Procedures Referred By Contac t Referred To Contact Sleep Medicine Diagnoses Obstructive sleep apnea Mackenzie Estrada MD [address] [place] [address] Phone: tel: fax: [address] [phone] Phone: tel: fax: Referral ID Status Reason Start Date Expiration Date Visits Requested Visits Authorized [id number] Authorized Specialty Services Required 07/30/2026 6 6 Encounter Details Date Type Department Care Team (Late st Contact Info) Description 07/30/2025 Orders Only [facility] [address] [place], [place] [phone] Mackenzie Estrada MD [address] [place], [place] [phone] Obstructive sleep apnea (Primary Dx) Social History Tobacco Use Types [...] Answer Date Recorded Patient Health Questionnaire-9 Score 12 07/09/2025 Patient Health Questionnaire-9 Score 12 07/09/2025 Last PHQ-9: Questionnaire Data Not on file 1 09/09/2024 Housing Stability Answer Date Recorded What is [...] Answer Date Recorded Patient Health Questionnaire-2 Score 6 07/09/2025 Internet Access Answer Date Recorded Internet Access [...] Description 09/10/2025 9:45 AM EST Office Visit [facility] [address] [place] [phone] 09/11/2025 9:00 AM EST Office Visit [facility] [address] [place] [address] Mackenzie Estrada MD [address] [place] [address] Scheduled Referrals Name Type Priority Associated Diagnoses Orde r Schedule Referral to Sleep Medicine Outpatient Referral Routine Obstructive sleep apnea Expected: 07/30/2025 (Approximate), Expires: 07/30/2026 documented as of this encounter Goals Goal Patient Goal Type Associated Problems Recent Progress Patient-Stated? Author Quit using tobacco (cigarettes, smokeless, etc) Tobacco Use No Corey Lin, KelechiD documented as of this encounter Visit Diagnoses Diagnosis Obstructive sleep apnea- Primary Obstructive sleep apnea (adult) (pediatric) documented in this encounter Additional Health Concerns Assessment Noted Time PHQ-9 Depression Total Score: 12 025 12:46 PM EST documented as of this encounter Care Teams Roofer Metal Relationship Specialty Start Date End Date Mackenzie Estrada MD [address] [place] [address] PCP - General Family Medicine 07/10/20 Marcelle Mayorga, JENNIFER [address] [place] [address] Registered Nurse Family Medicine 07/02/25 Denisse Molina 07/03/25 Hemalatha Pretty Webmethods ConsultantMortgage Broker 01/02/25 documented as of this encounter
--- OUTSIDE RECORDS SUMMARY | 2025-07-30 13:13 | XMS_ITS | Encounter Summary ---
Author Organization [employer] Address [address] [place] [address] Care Team Providers Care Emergency Department Manager Name Role Phone Mackenzie Estrada MD Primary Care Provider [phone] Ruth Ann Price Unavailable Unavailable Ruth Ann Price Unavailable Ruth Ann Price Unavailable Marcelle Mayorga RN Unavailable [phone] Denisse Molina Unavailable Reason for Visit * Reason Comments Med Refill Encounter Details Date Type Department Care Team (Late st Contact Info) Description 01/24/2025 Refill [facility] [address] [place], [place] [phone] Kat Yo MD [address] [place] [address] Rheumatoid arthritis involving right hand with positive [...] Description 09/10/2025 9:45 AM EST Office Visit [facility] [address] [place] [address] 09/11/2025 9:00 AM EST Office Visit [facility] [address] [place] [address] Mackenzie Estrada MD [address] [place] [address] documented as of this encounter Goals Goal [...] of this encounter Care Teams Emergency Department Manager Relationship Specialty Start Date End Date Mackenzie Estrada MD [address] [place] [address] PCP - General Family Medicine 07/10/20 Ruth Ann Price 02/19/25 02/19/25 Ruth Ann Price 02/19/25 02/28/25 Ruth Ann Price 03/29/25 04/03/25 Marcelle Mayorga RN [address] [place] [address] Registered Nurse Family Medicine 07/02/25 Denisse Molina 07/03/25 Hemalatha Pretty [employer] ChemistScene And Lighting Design Lecturer 01/02/25 documented as of this encounter
--- OUTSIDE RECORDS SUMMARY | 2025-07-30 13:13 | XMS_ITS | Encounter Summary ---
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 Name Role Phone Mackenzie Estrada MD Primary Care Provider [phone] Casper Magaña RN Unavailable [phone] Ruth Ann Price Unavailable Unavailable Ruth Ann Price Unavailable Ruth Ann Price Unavailable Marcelle Mayorga RN Unavailable [phone] Denisse Molina Unavailable Reason for Referral * Imaging (Routine) - Closed Specialty Diagnoses / Procedures Referred By Contruby t Referred To Contact Radiology Diagnoses Abnormal ultrasound of pelvis Procedures MR Pelvis w/ and w/o Contrast Mackeznie Estrada MD [address] [place] [address] Phone: tel: fax: [facility] [address] [place] [phone] Phone: tel: fax: Referral ID Status Reason Start Date Expiration Date Visits Re quested Visits Authorized [id number] Closed 10/31/2023 10/30/2024 1 1 Encounter Details Date Type Department Care Team (Late st Contact Info) Description 10/31/[address] [facility] [address] [place], [place] [phone] Mackenzie Estrada MD [address] [place], [place] [phone] Abnormal ultrasound of pelvis (Primary Dx) Social [...] which I need to talk to her registered pharmacy technician about. Thank you! documented in this encounter Plan of Treatment Upcoming Encounters Date Type Department Care Team (Late st Contact Info) Description 09/10/2025 9:45 AM EST Office Visit [facility] [address] [place] [address] 09/11/2025 9:00 AM EST Office Visit [facility] [address] [place] [address] Mackenzie Estrada MD [address] [place] [address] documented as of this encounter Goals Goal [...] PM EDT Narrative 12/07/2023 9:11 AM EDT [address] [address] Magnetic Resonance Report Signed Patient: Ginette Arceo MR #: [id number] : 1975 Acct:[id number] Age/Sex: 48 / F ADM Date: 11/25/23 Loc: HO.MRI Attending Dr: Mackenzie Estrada MD Ordering Physician: Mackenzie Estrada Date of Service: 11/25/23 Procedure(s): MR pelvis wo/w con Accession Number(s): [id number] cc: Mackenzie Estrada EXAMINATION: MR PELVIS WITHOUT [...] measures 7.8 x 3.6 x 4.3 cm (jymfbw-ij-gtsywa x AP x transverse dimension). The junctional [...] in OV> 12/07/23 0907 DD/ 1505 TD/TT: Church Official: PD Procedure Note Donotuseinterpreter, Image - 12/07/[address] [address] Magnetic Resonance Report Signed Patient: Ginette ArceoMR #: [id number] : 1975Acct:[id number] Age/Sex: 48 / FADM Date: 11/25/23 Loc: .MRI Attending Dr: Mackenzie Estrada MD Ordering Physician: Mackenzie Estrada Date of Service: 11/25/23 Procedure(s): MR pelvis wo/w con Accession Number(s): [id number] cc: Mackenzie Estrada EXAMINATION: MR PELVIS WITHOUT [...] measures 7.8 x 3.6 x 4.3 cm (ihzrzg-lm-jkgezs x AP x transverse dimension). The junctional [...] in OV> 12/07/23 0907 DD/ 1505 TD/TT: Church Official: PD us Mackenzie Estrada MD IMG MRI PROCEDURES Final Resul t documented in this encounter Visit Diagnoses Diagnosis Abnormal ultrasound of pelvis- Primary documented in this encounter Care Teams Hand Brim Ironer Relationship Specialty Start Date End Date Mackenzie Estrada MD [address] [place] [address] PCP - General Family Medicine 07/10/20 Casper Magaña, JENNIFER [address] [place] [address] Registered Nurse Family Medicine 01/18/25 01/18/25 Ruth Ann Price 02/19/25 02/19/25 Ruth Ann Price 02/19/25 02/28/25 Ruth Ann Price 03/29/25 04/03/25 Marcelle Mayorga, JENNIFER [address] [place] [address] Registered Nurse Family Medicine 07/02/25 Denisse Molina 07/03/25 Hemalatha Pretty Flume Ride OperatorGuard Dance Hall 01/02/25 documented as of this encounter
--- OUTSIDE RECORDS SUMMARY | 2025-07-30 13:13 | XMS_ITS | Clinical Summary ---
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 X10*3/uL [facility] NRBC Abs Auto 0.000 0.0 - 0.012 X10*3/uL [facility] Blood Venous blood specimen / Unknown 05/16/2025 1:03 PM EDT 05/16/2025 1:11 PM EDT [facility] LAB BLOOD ORDERABLES Final Resu lt Performing Organization Address [facility]/ZIP Co de Phone Number [facility] [address] [place] [address] [phone] * Partial Thromboplastin Time, Activated (APTT) (05/16/2025 12:03 PM EDT) Partial Thromboplastin Time 31.1 26.7 - 34.1 SEC [facility] Blood Venous blood specimen / Unknown 05/16/2025 12:03 PM EDT 05/16/2025 1:11 PM EDT [facility] LAB BLOOD ORDERABLES Final Resu lt Performing Organization Address City/[facility]/ZIP Co de Phone Number [facility] [address] [place] [address] [phone] * (ABNORMAL) Prothrombin Time-INR (05/16/2025 12:03 PM EDT) Prothrombin Time 13.0(H) 10.9 - 12.4 SEC [facility] INTERNATIONAL NORM RATIO 1.1 0.9 - 1.1 [facility] Comment:INTERNATIONAL NORMAL IZED RATIO (INR) [...] EDT 05/16/2025 1:11 PM EDT Aura Vu [employer] LAB BLOOD ORDERABLES Final Resu lt Performing Organization Address [facility]/State/ZIP Co de Phone Number [facility] [address] [place] [phone] * (ABNORMAL) Lipid Panel, Standard (05/16/2025 12:03 PM EDT) Triglycerides 154(H) <150 mg/dL [facility] Comment:Desirable Triglyceri de: less than 150 mg/dLBorderline High Triglyceride 150-199 mg/dLHigh Triglyceride: 200-499 mg/dLVery High Triglyceride: greater than or equal to 5OO mg/dL Cholesterol 261(H) <200 mg/dL [facility] Comment:Desirable Cholestero l: less than 200 mg/dLBorderline High Cholesterol: 200-239 mg/dLHigh Cholesterol: greater than 239 mg/dL LDL Cholesterol Calculated 179(H) <100 mg/dL [facility] Comment:Desirable LDL: less than 100 mg/dLNear Optimal/Above Optimal LDL: 110- 129 mg/dLBorderline High LDL: 130-159 mg/dLHigh LDL: 160-189 mg/dLVery High LDL: greater than or equal to 190 mg/dL HDL Cholesterol 52 >40 mg/dL [facility] Comment:Desirable HDL: great er than 40 mg/dL Note: This HDL assay may give artificially low results in patients with liver disease. 05/16/2025 12:0 3 PM EDT 05/16/2025 1:31 PM EDT Generic External Data Provider LAB BLOOD ORDERAB LES Final Result Performing Organization Address City/[facility]/ZIP Co de Phone Number [facility] [address] [place] [address] [phone] * (ABNORMAL) Comprehensive Metabolic Panel (05/16/2025 12:03 PM EDT) Sodium 142 135 - 145 mmol/L [facility] Potassium 4.1 3.3 - 5.1 mmol/L [facility] Chloride 107 96 - 108 mmol/L [facility] Carbon Dioxide 27 22 - 29 mmol/L [facility] Anion Gap 12 12 - 20 [facility] Urea Nitrogen (BUN) 13 9 - 16 mg/dL [facility] Creatinine, Serum 0.63 0.5 - 1.4 mg/dL [facility] Estimated Glomerular Filt Rate >60 [facility] Comment:Chronic Kidney Disea se: Estimated GFR < 60 mL/min/1.80v4Oopajz Kidney Disease: Estimated GFR < 15 mL/min/1.73m2 Glucose 84 60 - 115 mg/dL [facility] Calcium 9.7 8.4 - 10.2 mg/dL [facility] Bilirubin, Total 0.3 0.0 - 1.0 mg/dL [facility] Aspartate Amino Transferase 33(H) 5 - 31 U/L [facility] Alanine Aminotransferase 27 0 - 31 U/L [facility] Total Protein 9.2(H) 6.5 - 8.0 g/dL [facility] Albumin Level 4.7 3.5 - 5.0 g/dL [facility] Alkaline Phosphatase 81 39 - 117 U/L [facility] Blood Venous blood specimen / Unknown 05/16/2025 12:03 PM EDT 05/16/2025 1:31 PM EDT Aura Vu NP LAB BLOOD ORDERABLES Final Resu lt Performing Organization Address [facility]/ZIP Co de Phone Number [facility] [address] [place] [address] [phone] * BI Mammogram Screening Tomosynthesis Bilateral (05/15/2025 10:22 AM EDT) Anatomical Region Laterality Modality Breast Bilateral Mammography 05/15/2025 10:2 2 AM EDT [facility] 05/19/2025 7:08 AM EDT [facility] [address] [place], [place] [address] Mammography Report Signed Patient: Ginette Arceo MR #: [id number] : 1975 Acct:[id number] Age/Sex: 49 / F ADM Date: 05/15/25 Loc: HO.MAMMO Attending Dr: Sisi Kennedy GUIDANCE COUNSELOR Ordering Physician: Ebony Daigle MD Results: 2Be nign Date of Service: 05/15/25 Follow Up: 1 Year From Orig ina Mammogram Procedure(s): MM tomosynthesis screening BI Accession Number(s): [id number] cc: Ebony Daigle MD; Mackenzie Estrada Reason [...] 05/19/25 0705 DD/ 1022 TD/TT: 05/15/25 1052 Wool Brusher: Procedure Note Donotuseinterpreter, Image - 05/19/2025 [facility] [address] [place] [address] Mammography Report Signed Patient: Ginette ArceoMR #: [id number] : 1975Acct:[id number] Age/Sex: 49 / FADM Date: 05/15/25 Loc: HO.MAMMO Attending Dr: Sisi Kennedy GUIDANCE COUNSELOR Ordering Physician: Ebony Daigle MDResults: 2Be nign Date of Service: 05/15/25Follow Up: 1 Year From Orig ina Mammogram Procedure(s): MM tomosynthesis screening BI Accession Number(s): [id number] cc: Ebony Daigle MD; Mackenzie Estrada Reason [...] 05/19/25 0705 DD/ 1022 TD/TT: 05/15/25 1052 Wool Brusher: us Ebony Daigle MD IMG BI PROCEDURES Edited Result - Final * Hepatitis C Ab (04/11/2024 10:26 AM EDT) Hepatitis C Antibody Nonreactive Nonreactive [facility] Comment:Antibodies to HCV no t detected; does not exclude early acuteHCV infection. Blood Venous blood specimen / Unknown 04/11/2024 10:26 AM EDT 04/11/2024 11:19 AM EDT us Mackenzie Estrada MD LAB BLOOD ORDERABLES Final Res ult [facility] [address] [place] [phone] * HIV-1/2 Antigen and Antibodies, Fourth Generation, with Reflexes (04/11/2024 10:26 AM EDT) HIV AB/AG Nonreactive Nonreactive [facility] Comment:HIV-1 p24 Ag and/or HIV-1/HIV-2 Ab not detected.A test result that is nonreactive does not exclude thepossibility of exposure to or infection with HIV-1 and/orHIV-2. Nonreactive results in this assay for individualswith prior exposure to HIV-1 and/or HIV-2 may be due toantigen and antibody levels that are below the limit ofdetection of this assay.The [employer] Verbal HIV Ag/Ab Combo assay result andsupplemental assay results should be interpreted inconjunction with the patient's clinical presentation,history and other laboratory results. If the results areinconsistent with clinical evidence, additional testing issuggested to confirm the result. Blood Venous blood specimen / Unknown 04/11/2024 10:26 AM EDT 04/11/2024 11:19 AM EDT us Mackenzie Estrada MD LAB BLOOD ORDERABLES Final Res ult [facility] [address] [place] [phone] * HPV mRNA E6/E7 w/Reflex to HPV Genotypes 16, 18/45 (09/29/2023 12:26 PM EST) HPV nRNA E6/E7 Not Detected Not Detected [facility] Comment:Methodology: Transcr iption-Mediated AmplificationThis assay detects E6/E7 viral messenger RNA (mRNA) from 14high-risk HPV types (16,18,31,33,35,39,45,51,52,56,58,59,66,68).Cervical sources are required for HPV testing.If a vaginal source from a patient who has had atotal hysterectomy with removal of cervix wassubmitted, please contact the testing laboratoryfor alternative testing options.For additional information, please refer tohttp://education.[employer]/faq/LBT909r6(This link if provided for information/educational purposes only.)THIS TEST WAS PERFORMED AT:[facility] [place] [phone] GALVAN MD HPV mRNA E6/E7 [facility] HPV 16 RNA [facility] HPV 18/45 RNA [facility] 09/29/2023 12:2 6 PM EST 09/30/2023 11:30 AM EST us Mackenzie Estrada MD LAB CYTOLOGY ORDERABLES Final Result [facility] [address] [place] [phone] * Pap Smear (09/29/2023 12:26 PM EST) 09/29/2023 12:2 6 PM EST 09/30/2023 11:30 AM EST Narrative [facility] - 10/12/2023 4:18 PM EDT ----- ------- Name: Ovidio LacyGinette Age/Sex: 48/F : 1975 Unit#: [id number] Attend Dr: Mackenzie Estrada Re09/29/23 Status: [facility] REF Location: HO.HHCX Disch: ----- ------- SPEC : [id number] RECD: 09/30/23-1130 STATUS: NIRMALA PEREZ NUM: [id number] BHAVIN: 09/29/23-[address]: Mackenzie Estrada ENTERED: 09/30/23-1325 SP TYPE: Pap Smr OTHR DR: ORDERED: Pap Smear Interpretation Satisfactory for evaluation. Negative for intraepithelial lesion or malignancy. HPV mRNA E6/E7: NOT DETECTED This assay detects E6/E7 viral messenger RNA (mRNA) from 14 high-risk HPV types (16, 18, 31, 33, 35, 39, 45, 51, 52, 56, 58, 59, 66, 68) HPV testing performed by [facility], [place], [place]. See reference laboratory portion of the EMR for entire report. Clinical Information LMP: Heavy menstrual bleeding past two weeks Previous PAP test: Unknown date/findings Other history: Material Received ThinPrep-Cervical ----- ------- Signed (signature on file) BARB Hawley (ASCP) 10/12/23 1618 ----- ------- END OF REPORT Mackenzie Estrada MD LAB CYTOLOGY ORDERABLES Final Result [facility] [address] [place] [phone] * Colonoscopy (10/28/2017) Colonoscopy Normal Normal Narrative Cecilia Henriquez - 10/28/2017 Recommended 10 year follow up ([facility]) Historical Provider HEALTH MAINTENANCE Edited Result - Final from Last 3 Months or Most Recently Relevant to Health Maintenance Insurance [place] [facility] [place] [place] Care Teams Nibbler Operator Relationship Specialty Start Date End Date Mackenzie Estrada MD [address] [place] [address] PCP - General Family Medicine 07/10/20 Marcelle Mayorga, JENNIFER [address] [place] [address] Registered Nurse Family Medicine 07/02/25 Denisse Molina 07/03/25 Hemalatha Pretty Broom Handle DipperPhysician Specialist 01/02/25
--- OUTSIDE RECORDS SUMMARY | 2025-07-30 13:13 | XMS_ITS | Encounter Summary ---
Author Organization [employer] Address [address] [facility] 7t [place] [address] Care Team Providers Care Inside Sales Advisor Name Role Phone Mackenzie Estrada MD Primary Care Provider Marcelle Mayorga RN Unavailable [phone] Denisse Molina Unavailable Reason for Visit * Reason Onset Date Comments Med Refill 07/22/2025 Encounter Details Date Type Department Care Team (Late st Contact Info) Description 07/22/2025 Refill [facility] [address] [place] [address] Mackenzie Estrada MD [address] [place] [address] 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 ([facility]); Rheumatoid arthritis involving multiple sites with positive rheumatoid factor (CMS/HCC) ([facility]); Chronic low back pain, unspecified back pain laterality, unspecified whether sciatica present; Long-term current use of opiate analgesic Social [...] Telephone Encounter - Kaylene Samano RN - 07/22/2025 9:36 AM EST [facility] Percocet last picked up 07/02/25 for 28 day supply. Refill due 07/30/25. Will forward to PCP on 07/29/25. * Telephone Encounter - Arturo Mark - 07/22/2025 9:06 AM EST TC from pt requesting medication refill. Medications needing refill : oxyCODONE-acetaminophen (Percocet) 7.5-325 MG tablet To be sent to: [facility] [place] [place] [facility] documented in this encounter Plan of Treatment Upcoming Encounters Date Type Department Care Team (Late st Contact Info) Description 09/10/2025 9:45 AM EST Office Visit [facility] [place] [address] 09/11/2025 9:00 AM EST Office Visit [facility] [place] [address] Mackenzie [place]strada [place] [address] documented as of this encounter Goals Goal Patient Goal Type Associated Problems Recent Progress Patient-Stated? Author Quit using tobacco (cigarettes, smokeless, etc) Tobacco Use No Corey Lin, KelechiD documented as of this encounter Visit Diagnoses Diagnosis 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 ([facility]) Rheumatoid arthritis involving multiple sites with positive rheumatoid factor (CMS/HCC) ([facility]) Chronic low back pain, unspecified back pain laterality, unspecified whether sciatica present Long-term current use of opiate analgesic Encounter for long-term (current) use of other medications documented in this encounter Additional Health Concerns Assessment Noted Time PHQ-9 Depression Total Score: 12 025 12:46 PM EST documented as of this encounter Care Teams Inside Sales Advisor Relationship Specialty Start Date End Date Mackenzie [place] [address] PCP - General Family Medicine 07/10/20 Marcelle Mayorga RN [address] [place] [address] Registered Nurse Family Medicine 07/02/25 Denisse Molina 07/03/25 Hemalatha Pretty Physician InternistWardrobe Image Consultant 01/02/25 documented as of this encounter
--- OUTSIDE RECORDS SUMMARY | 2025-07-30 13:13 | XMS_ITS | Encounter Summary ---
Author Organization [employer] Address [address] [facility] [address] [place] [address] Care Team Providers Care Floor Finisher Name Role Phone Mackenzie Estrada MD Primary Care Provider [phone] Casper Magaña RN Unavailable [phone] Ruth Ann Price Unavailable Unavailable Ruth Ann Price Unavailable Ruth Ann Price Unavailable Marcelle Mayorga RN Unavailable [phone] Denisse Molina Unavailable Encounter Details Date Type Department Care Team (Late st Contact Info) Description 06/01/2023 Orders Only [facility] [address] [place], [place] [phone] Mackenzie Estrada MD [address] [place], [place] [phone] Encounter for smoking cessation counseling (Primary Dx) [...] Description 09/10/2025 9:45 AM EST Office Visit [facility] [address] [place] [phone] 09/11/2025 9:00 AM EST Office Visit [facility] [address] [place] [address] Mackenzie Estrada MD [address] [place] [address] documented as of this encounter Goals Goal Patient Goal Type Associated Problems Recent Progress Patient-Stated? Author Quit using tobacco (cigarettes, smokeless, etc) Tobacco Use No Corey Lin, KelechiD documented as of this encounter Visit Diagnoses Diagnosis Encounter for smoking cessation counseling- Primary documented in this encounter Care Teams Floor Finisher Relationship Specialty Start Date End Date Mackenzie Estrada MD [address] [place] [address] PCP - General Family Medicine 07/10/20 Casper Magaña, RN [address] [place] [address] Registered Nurse Family Medicine 01/18/25 01/18/25 Ruth Ann Price 02/19/25 02/19/25 Ruth Ann Price 02/19/25 02/28/25 Ruth Ann Price 03/29/25 04/03/25 Marcelle Mayorga, RN [address] [place] [address] Registered Nurse Family Medicine 07/02/25 Denisse Molina 07/03/25 Hemalatha Pretty Debt Collection SpecialistRestaurant Area Director 01/02/25 documented as of this encounter
--- OUTSIDE RECORDS SUMMARY | 2025-07-30 13:13 | XMS_ITS | Encounter Summary ---
Author Organization [employer] Address [address] [facility] 7t [place] [address] Care Team Providers Care Gripper Attacher Name Role Phone Mackenzie Estrada MD Primary Care Provider Casper Magaña RN Unavailable [phone] Ruth Ann Price Unavailable Unavailable Ruth Ann Price Unavailable Ruth Ann Price Unavailable Marcelle Mayorga RN Unavailable [phone] Denisse Molina Unavailable Reason for Visit * Reason Comments Med Refill Encounter Details Date Type Department Care Team (Late st Contact Info) Description 12/10/2022 Refill [facility] MEDICINE [address] [place], [place] [phone] Mackenzie Estrada MD [address] [place], [place] [phone] Pain in both hands Social History Tobacco [...] Description 09/10/2025 9:45 AM EST Office Visit [address] [address] 09/11/2025 9:00 AM EST Office Visit [address] [address] Mackenzie Estrada MD [address] [place] [address] documented as of this encounter Visit Diagnoses Diagnosis Pain in both hands documented in this encounter Care Teams Gripper Attacher Relationship Specialty Start Date End Date Mackenzie Estrada MD [address] [place] [phone] PCP - General Family Medicine 07/10/20 Casper Magaña RN [address] [place] [address] Registered Nurse Family Medicine 01/18/25 01/18/25 Ruth Ann Price 02/19/25 02/19/25 Ruth Ann Price 02/19/25 02/28/25 Ruth Ann Price 03/29/25 04/03/25 Marcelle Mayorga RN [address] [place] [address] Registered Nurse Family Medicine 07/02/25 Denisse Molina 07/03/25 Hemalatha Pretty Supply Chain DirectorSchool Administrator 01/02/25 documented as of this encounter
--- OUTSIDE RECORDS SUMMARY | 2025-07-30 13:13 | XMS_ITS | Encounter Summary ---
Author Organization [employer] Address [address] [facility] 7t [place] [address] Care Team Providers Care Lathe Setup Operator Name Role Phone Mackenzie Estrada MD Primary Care Provider [phone] Casper Magaña RN Unavailable [phone] Ruth Ann Price Unavailable Unavailable Ruth Ann Price Unavailable Ruth Ann Price Unavailable Marcelle Mayorga RN Unavailable [phone] Denisse Molina Unavailable Reason for Visit * Reason Comments Med Refill Encounter Details Date Type Department Care Team (Late st Contact Info) Description 06/03/2023 Refill [facility] MEDICINE [address] [place], [place] [phone] Mackenzie Estrada MD [address] [place], [place] [phone] Pain in both hands Social History Tobacco [...] Description 09/10/2025 9:45 AM EST Office Visit [facility] MEDICINE [address] [place] [address] 09/11/2025 9:00 AM EST Office Visit [address] [address] Mackenzie Estrada MD [address] [place] [phone] documented as of this encounter Goals Goal Patient Goal Type Associated Problems Recent Progress Patient-Stated? Author Quit using tobacco (cigarettes, smokeless, etc) Tobacco Use No Corey Lin, PharmD documented as of this encounter Visit Diagnoses Diagnosis Pain in both hands documented in this encounter Care Teams Lathe Setup Operator Relationship Specialty Start Date End Date Mackenzie Estrada MD [address] [place] [phone] PCP - General Family Medicine 07/10/20 Casper Magaña, RN [address] [place] [address] Registered Nurse Family Medicine 01/18/25 01/18/25 Ruth Ann Price 02/19/25 02/19/25 Ruth Ann Price 02/19/25 02/28/25 Ruth Ann Price 03/29/25 04/03/25 Marcelle Mayorga, RN [address] [place] [phone] Registered Nurse Family Medicine 07/02/25 Denisse Molina 07/03/25 Hemalatha Pretty Cuff PresserBreastfeeding Educator 01/02/25 documented as of this encounter
--- OUTSIDE RECORDS SUMMARY | 2025-07-30 13:13 | XMS_ITS | Encounter Summary ---
Author Organization [employer] Address [address] [facility] 7t [place] [address] Care Team Providers Care Meat Soaker Name Role Phone Mackenzie Estrada MD Primary Care Provider [phone] Casper Magaña RN Unavailable [phone] Ruth Ann Price Unavailable Unavailable Ruth Ann Price Unavailable Ruth Ann Price Unavailable Marcelle Mayorga RN Unavailable [phone] Denisse Molina Unavailable Reason for Visit * Reason Comments Med Refill Encounter Details Date Type Department Care Team (Late st Contact Info) Description 10/10/2024 Refill [facility] MED[facility]INE [address] [place], [place] [phone] Mackenzie Estrada MD [address] [place], [place] [phone] 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 [...] Description 09/10/2025 9:45 AM EST Office Visit [facility] [address] [place] [address] 09/11/2025 9:00 AM EST Office Visit [facility] [address] [place] [address] Mackenzie Estrada MD [address] [place] [address] documented as of this encounter Goals Goal [...] as of this encounter Care Teams Meat Soaker Relationship Specialty Start Date End Date Mackenzie Estrada MD [address] [place] [address] PCP - General Family Medicine 07/10/20 Casper Magaña, JENNIFER [address] [place] [address] Registered Nurse Family Medicine 01/18/25 01/18/25 Ruth Ann Price 02/19/25 02/19/25 Ruth Ann Price 02/19/25 02/28/25 Ruth Ann Price 03/29/25 04/03/25 Marcelle Mayorga, JENNIFER [address] [place] [address] Registered Nurse Family Medicine 07/02/25 Denisse Molina 07/03/25 Hemalatha Pretty Rn InvasiveEngineering Documentation Specialist 01/02/25 documented as of this encounter
--- OUTSIDE RECORDS SUMMARY | 2025-07-30 13:13 | XMS_ITS | Encounter Summary ---
Author Organization [employer] Address [address] 7t [place] [address] Care Team Providers Care Guard Entrance Registrar Name Role Phone Mackenzie Estrada MD Primary Care Provider [phone] Marcelle Mayorga RN Unavailable [phone] Denisse Molina Unavailable Reason for Visit * Reason Comments Med Refill Encounter Details Date Type Department Care Team ([facility] st Contact Info) Description 07/29/2025 Refill [facility] WALK-IN CENTER 230 [place], [place] [phone] Mark Yang MD [address] [place] [address] Social History Tobacco Use Types Packs/Day Years [...] 09/10/2025 9:45 AM EST Office Visit [facility] MEDICINE [address] [place] [address] 09/11/2025 9:00 AM EST Office Visit [facility] MEDICINE [address] [place] [address] Mackenzie Estrada MD [address] [place] [address] documented as of this encounter Goals Goal Patient Goal Type Associated Problems Recent Progress Patient-Stated? Author Quit using tobacco (cigarettes, smokeless, etc) Tobacco Use Corey Cornell, KelechiD documented as of this encounter Visit Diagnoses Not on filedocumented in this encounter Additional Health Concerns Assessment Noted Time PHQ-9 Depression Total Score: 12 025 12:46 PM EST documented as of this encounter Care Teams Guard Entrance Registrar Relationship Specialty Start Date End Date Mackenzie Estrada MD [address] [place], [place] [phone] PCP - General Family Medicine 07/10/20 Marcelle Mayorga RN [address] [place], [place] [phone] Registered Nurse Family Medicine 07/02/25 Denisse Molina 07/03/25 Hemalatha Pretty Institutional CookTechnical Project Lead 01/02/25 documented as of this encounter
--- OUTSIDE RECORDS SUMMARY | 2025-07-30 13:13 | XMS_ITS | Encounter Summary ---
Author Organization [employer] Address 75 [facility] 7t [place] [address] Care Team Providers Care Cardiac Cath Lab Radiology Technologist Name Role Phone Mackenzie Estrada MD Primary Care Provider [phone] Casper Magaña RN Unavailable [phone] Ruth Ann Price Unavailable Unavailable Ruth Ann Price Unavailable Ruth Ann Price Unavailable Marcelle Mayorga RN Unavailable [phone] Denisse Molina Unavailable Reason for Visit * Reason Comments Med Refill Encounter Details Date Type Department Care Team (Late st Contact Info) Description 02/08/2023 Refill [facility] MEDICINE 230 [place], [place] [phone] Mackenzie Estrada MD 230 [place], [place] [phone] Pain in both hands Social History Tobacco [...] Upcoming Encounters Date Type Department Care Team ([facility] st Contact Info) Description 09/10/2025 9:45 AM EST Office Visit [address] [address] 09/11/2025 9:00 AM EST Office Visit [address] [address] Mackenzie Estrada MD 230 [place] [address] documented as of this encounter Visit Diagnoses Diagnosis Pain in both hands documented in this encounter Care Teams Cardiac Cath Lab Radiology Technologist Relationship Specialty Start Date End Date Mackenzie Estrada MD [address] [place] [address] PCP - General Family Medicine 07/10/20 Casper Magaña RN [address] [place] [address] Registered Nurse Family Medicine 01/18/25 01/18/25 Ruth Ann Price 02/19/25 02/19/25 Ruth Ann Price 02/19/25 02/28/25 Ruth Ann Price 03/29/25 04/03/25 Marcelle Mayorga RN [address] [place] [address] Registered Nurse Family Medicine 07/02/25 Denisse Molina 07/03/25 Hemalatha Pretty Pediatric CardiologistMachine Ii Coremaker 01/02/25 documented as of this encounter
--- OUTSIDE RECORDS SUMMARY | 2025-07-30 13:13 | XMS_ITS | Encounter Summary ---
Author Organization [employer] Address [address] [facility] [address] 7t [place] [address] Care Team Providers Care Assistant Professor Of Dietetics Name Role Phone Mackenzie Estrada MD Primary Care Provider [phone] Casper Magaña RN Unavailable [phone] Ruth Ann Price Unavailable Unavailable Ruth Ann Price Unavailable Ruth Ann Price Unavailable Marcelle Mayorga RN Unavailable [phone] Denisse Molina Unavailable Encounter Details Date Type Department Care Team (Late st Contact Info) Description 04/10/2024 Orders Only [facility] MEDICINE 230 [place], [place] [phone] Mackenzie Estrada MD 230 [place], [place] [phone] Social History Tobacco Use Types Packs/Day Years [...] Description 09/10/2025 9:45 AM EST Office Visit [facility] MEDICINE [address] [place] [address] 09/11/2025 9:00 AM EST Office Visit [address] [address] Mackenzie Estrada MD [address] [place] [address] documented as of this encounter Goals Goal Patient Goal Type Associated Problems Recent Progress Patient-Stated? Author Quit using tobacco (cigarettes, smokeless, etc) Tobacco Use Corey Cornell, PharmD documented as of this encounter Visit Diagnoses Not on filedocumented in this encounter Care Teams Assistant Professor Of Dietetics Relationship Specialty Start Date End Date Mackenzie Estrada MD [address] [place] [address] PCP - General Family Medicine 07/10/20 Casper Magaña, RN [address] [place] [address] Registered Nurse Family Medicine 01/18/25 01/18/25 Ruth Ann Price 02/19/25 02/19/25 Ruth Ann Price 02/19/25 02/28/25 Ruth Ann Price 03/29/25 04/03/25 Marcelle Mayorga, RN [address] [place] [address] Registered Nurse Family Medicine 07/02/25 Denisse Molina 07/03/25 Hemalatha Pretty Cardiac Care NurseInsurance Policy Issue Clerk 01/02/25 documented as of this encounter
--- OUTSIDE RECORDS SUMMARY | 2025-07-30 13:13 | XMS_ITS | Encounter Summary ---
Author Organization [employer] Address [address] [facility] 7t [place] [address] Care Team Providers Care Beam Warper Name Role Phone Mackenzie Estrada MD Primary Care Provider [phone] Marcelle Mayorga RN Unavailable [phone] Denisse Molina Unavailable Reason for Visit * Reason Comments Med Refill Encounter Details Date Type Department Care Team (Late st Contact Info) Description 04/09/2025 Refill [facility] MEDICINE 230 [place] [address] Sisi Kennedy FNP [address] [place] [address] Seborrheic dermatitis Social History Tobacco Use Types [...] Visit [facility] MEDICINE [address] [place] [address] 09/11/2025 9:00 AM EST Office Visit [facility] MEDICINE [address] [place] [address] Mackenzie Estrada MD [address] [place] [address] documented as of this encounter Goals Goal [...] documented as of this encounter Care Teams Beam Warper Relationship Specialty Start Date End Date Mackenzie Estrada MD 230 [place], [place] [phone] PCP - General Family Medicine 07/10/20 Marcelle Mayorga, JENNIFER 230 [place], [place] [phone] Registered Nurse Family Medicine 07/02/25 Denisse Molina 07/03/25 Hemalatha Pretty Child Care WorkerFoundation Relations Director 01/02/25 documented as of this encounter
--- OUTSIDE RECORDS SUMMARY | 2025-07-30 13:13 | XMS_ITS | Encounter Summary ---
Author Organization [employer] Address [address] [facility] [address] 7t [place] [address] Care Team Providers Care Seismograph Observer Name Role Phone Mackenzie Estrada MD Primary Care Provider [phone] Casper Magaña RN Unavailable [phone] Ruth Ann Price Unavailable Unavailable Ruth Ann Price Unavailable Ruth Ann Price Unavailable Marcelle Mayorga RN Unavailable [phone] Denisse Molina Unavailable Reason for Visit * Reason Comments Med Refill Encounter Details Date Type Department Care Team (Late st Contact Info) Description 10/10/2024 Refill [facility] WALK-IN CENTER 230 [place], [place] [phone] Kat Yo MD 230 [place], [place] [phone] Rheumatoid arthritis involving right hand with positive [...] Description 09/10/2025 9:45 AM EST Office Visit [facility] MEDICINE [address] [place] [address] 09/11/2025 9:00 AM EST Office Visit [facility] MEDICINE [address] [place] [address] Mackenzie Estrada MD [address] [place] [address] documented as of this encounter Goals Goal [...] documented as of this encounter Care Teams Seismograph Observer Relationship Specialty Start Date End Date Mackenzie Estrada MD 230 [place] [address] PCP - General Family Medicine 07/10/20 Casper Magaña, JENNIFER 505 [place] [address] Registered Nurse Family Medicine 01/18/25 01/18/25 Ruth Ann Price 02/19/25 02/19/25 Ruth Ann Price 02/19/25 02/28/25 Ruth Ann Price 03/29/25 04/03/25 Marcelle Mayorga, JENNIFER 230 [place] [address] Registered Nurse Family Medicine 07/02/25 Denisse Molina 07/03/25 Hemalatha Pretty Manager PackageSupervisor Graphite 01/02/25 documented as of this encounter
--- OUTSIDE RECORDS SUMMARY | 2025-07-30 13:13 | XMS_ITS | Encounter Summary ---
Author Organization [employer] Address 75 [facility] 7t [place] [address] Care Team Providers Care Sequencing Machine Operator Name Role Phone Mackenzie Estrada MD Primary Care Provider [phone] Casper Magaña RN Unavailable [phone] Ruth Ann Price Unavailable Unavailable Ruth Ann Price Unavailable Ruth Ann Price Unavailable Marcelle Mayorga RN Unavailable [phone] Denisse Molina Unavailable Encounter Details Date Type Department Care Team (Late Contact Info) Description 03/04/2023 Orders Only [facility] MEDICINE [address] [place] [address] [phone] Kat Yo MD [address] [place] [address] [phone] Social History Tobacco Use Types Packs/Day Years [...] Encounters Date Type Department Care Team ([facility] Contact Info) Description 09/10/2025 9:45 AM EST Office Visit [facility] MEDICINE [address] [place] [address] [phone] 09/11/2025 9:00 AM EST Office Visit [facility] MEDICINE 230 [place] [address] Mackenzie Estrada MD [address] [place] [address] documented as of this encounter Visit Diagnoses Not on filedocumented in this encounter Care Teams Sequencing Machine Operator Relationship Specialty Start Date End Date Mackenzie Estrada MD [address] [place] [address] PCP - General Family Medicine 07/10/20 Casper Magaña, JENNIFER [address] [place] [address] Registered Nurse Family Medicine 01/18/25 01/18/25 Ruth Ann Price 02/19/25 02/19/25 Ruth Ann Price 02/19/25 02/28/25 Ruth Ann Price 03/29/25 04/03/25 Marcelle Mayorga, JENNIFER [address] [place] [address] Registered Nurse Family Medicine 07/02/25 Denisse Molina 07/03/25 Hemalatha Pretty Flare MakerEquity Structurer 01/02/25 documented as of this encounter
--- OUTSIDE RECORDS SUMMARY | 2025-07-30 13:13 | XMS_ITS | Encounter Summary ---
Author Organization [employer] Address [address] [facility] [facility] [address] 7t [place] [address] Care Team Providers Care Cookie Mixer Helper Name Role Phone Mackenzie Estrada MD Primary Care Provider [phone] Casper Magaña RN Unavailable [phone] Ruth Ann Price Unavailable Unavailable Ruth Ann Price Unavailable Ruth Ann Price Unavailable Marcelle Mayorga RN Unavailable [phone] Denisse Molina Unavailable Encounter Details Date Type Department Care Team (Late st Contact Info) Description 12/13/2023 Orders Only [facility] MEDICINE 230 [place], [place] [phone] Macknezie Estrada MD 230 [place], [place] [phone] Pain in both hands Social History Tobacco [...] Description 09/10/2025 9:45 AM EST Office Visit [facility] MEDICINE [address] [place] [address] 09/11/2025 9:00 AM EST Office Visit [address] [address] Mackenzie Estrada MD [address] [place] [address] documented as of this encounter Goals Goal Patient Goal Type Associated Problems Recent Progress Patient-Stated? Author Quit using tobacco (cigarettes, smokeless, etc) Tobacco Use No Corey Lin, Bailey documented as of this encounter Visit Diagnoses Diagnosis Pain in both hands documented in this encounter Care Teams Cookie Mixer Helper Relationship Specialty Start Date End Date Mackenzie Estrada MD [address] [place] [address] PCP - General Family Medicine 07/10/20 Casper Magaña, JENNIFER [address] [place] [address] Registered Nurse Family Medicine 01/18/25 01/18/25 Ruth Ann Price 02/19/25 02/19/25 Ruth Ann Price 02/19/25 02/28/25 Ruth Ann Price 03/29/25 04/03/25 Marcelle Mayorga, JENNIFER [address] [place] [address] Registered Nurse Family Medicine 07/02/25 Denisse Molina 07/03/25 Hemalatha Pretty Medical Unit SecretaryTransformer Tester 01/02/25 documented as of this encounter
--- OUTSIDE RECORDS SUMMARY | 2025-07-30 13:13 | XMS_ITS | Encounter Summary ---
Author Organization [employer] Address 75 [facility] 7t [place] [address] Care Team Providers Care Superintendent Division Name Role Phone Mackenzie Estrada MD Primary Care Provider Casper Magaña RN Unavailable [phone] Ruth Ann Price Unavailable Unavailable Ruth Ann Price Unavailable Ruth Ann Price Unavailable Marcelle Mayorga RN Unavailable [phone] Denisse Molina Unavailable Reason for Visit * Reason Comments Med Refill Encounter Details Date Type Department Care Team (Late st Contact Info) Description 11/18/2023 Refill [facility] MEDICINE 230 [place], [place] [phone] Mackenzie Estrada MD 230 [place], [place] [phone] Pain in both hands Social History Tobacco [...] Description 09/10/2025 9:45 AM EST Office Visit [facility] MEDICINE [address] [place] [address] 09/11/2025 9:00 AM EST Office Visit [address] [address] Mackenzie Estrada MD [address] [place] [address] documented as of this encounter Goals Goal Patient Goal Type Associated Problems Recent Progress Patient-Stated? Author Quit using tobacco (cigarettes, smokeless, etc) Tobacco Use No Corey Lin, PharmD documented as of this encounter Visit Diagnoses Diagnosis Pain in both hands documented in this encounter Care Teams Superintendent Division Relationship Specialty Start Date End Date Mackenzie Estrada MD [address] [place] [address] PCP - General Family Medicine 07/10/20 Casper Mgaaña, RN [address] [place] [address] Registered Nurse Family Medicine 01/18/25 01/18/25 Ruth Ann Price 02/19/25 02/19/25 Ruth Ann Price 02/19/25 02/28/25 Ruth Ann Price 03/29/25 04/03/25 Marcelle Mayorga, RN [address] [place] [address] Registered Nurse Family Medicine 07/02/25 Denisse Molina 07/03/25 Hemalatha Pretty Tailings WorkerTop Frame Maker 01/02/25 documented as of this encounter
--- OUTSIDE RECORDS SUMMARY | 2025-07-30 13:13 | XMS_ITS | Encounter Summary ---
Author Organization [employer] Address 75 [facility] 7t [place] [address] Care Team Providers Care Mountain Bike Guide Name Role Phone Mackenzie Estrada MD Primary Care Provider [phone] Casper Magaña RN Unavailable [phone] Ruth Ann Price Unavailable Unavailable Ruth Ann Price Unavailable Ruth Ann Price Unavailable Marcelle Mayorga RN Unavailable [phone] Denisse Molina Unavailable Reason for Visit * Reason Comments Med Refill Encounter Details Date Type Department Care Team (Late st Contact Info) Description 06/02/2023 Refill [facility] MEDICINE 230 [place], [place] [phone] Mackenzie Estrada MD 230 [place], [place] [phone] Pain in both hands Social History Tobacco [...] Description 09/10/2025 9:45 AM EST Office Visit [facility] MEDICINE [address] [place] [address] 09/11/2025 9:00 AM EST Office Visit [address] [address] Mackenzie Estrada MD [address] [place] [address] documented as of this encounter Goals Goal Patient Goal Type Associated Problems Recent Progress Patient-Stated? Author Quit using tobacco (cigarettes, smokeless, etc) Tobacco Use No Corey Lin, PharmD documented as of this encounter Visit Diagnoses Diagnosis Pain in both hands documented in this encounter Care Teams Mountain Bike Guide Relationship Specialty Start Date End Date Mackenzie Estrada MD [address] [place] [address] PCP - General Family Medicine 07/10/20 Casper Magaña, RN [address] [place] [address] Registered Nurse Family Medicine 01/18/25 01/18/25 Ruth Ann Price 02/19/25 02/19/25 Ruth Ann Price 02/19/25 02/28/25 Ruth Ann Price 03/29/25 04/03/25 Marcelle Mayorga, RN [address] [place] [address] Registered Nurse Family Medicine 07/02/25 Denisse Molina 07/03/25 Hemalatha Pretty Industrial Training SpecialistPlaster Form Maker 01/02/25 documented as of this encounter
--- OUTSIDE RECORDS SUMMARY | 2025-07-30 13:13 | XMS_ITS | Encounter Summary ---
Author Organization [employer] Address 75 [facility] 7t [place] [address] Care Team Providers Care Front End Software Developer Name Role Phone Mackenzie Estrada MD Primary Care Provider [phone] Casper Magaña RN Unavailable [phone] Ruth Ann Price Unavailable Unavailable Ruth Ann Price Unavailable Ruth Ann Price Unavailable Marcelle Mayorga RN Unavailable [phone] Denisse Molina Unavailable Reason for Visit * Reason Comments Med Refill Encounter Details Date Type Department Care Team (Late st Contact Info) Description 06/01/2023 Refill [facility] MEDICINE 230 [place], [place] [phone] Mackenzie Estrada MD 230 [place], [place] [phone] Pain in both hands Social History Tobacco [...] 9:45 AM EST Office Visit [facility] MEDICINE [address] [place] [address] 09/11/2025 9:00 AM EST Office Visit [address] [address] Mackenzie Estrada MD [address] [place] [address] documented as of this encounter Goals Goal Patient Goal Type Associated Problems Recent Progress Patient-Stated? Author Quit using tobacco (cigarettes, smokeless, etc) Tobacco Use No Corey Lin, PharmD documented as of this encounter Visit Diagnoses Diagnosis Pain in both hands documented in this encounter Care Teams Front End Software Developer Relationship Specialty Start Date End Date Mackenzie Estrada MD [address] [place] [address] PCP - General Family Medicine 07/10/20 Casper Magaña, RN [address] [place] [address] Registered Nurse Family Medicine 01/18/25 01/18/25 Ruth Ann Price 02/19/25 02/19/25 Ruth Ann Price 02/19/25 02/28/25 Ruth Ann Price 03/29/25 04/03/25 Marcelle Mayorga, RN [address] [place] [address] Registered Nurse Family Medicine 07/02/25 Denisse Molina 07/03/25 Hemalatha Pretty Carriage FeederWire Rope Sales Representative 01/02/25 documented as of this encounter
--- OUTSIDE RECORDS SUMMARY | 2025-07-30 13:14 | XMS_ITS | Encounter Summary ---
Author Organization [employer] Address 75 [facility] 7t [place] [address] Care Team Providers Care Mop Maker Name Role Phone Mackenzie Estrada MD Primary Care Provider [phone] Marcelle Mayorga RN Unavailable [phone] Denisse Molina Unavailable Reason for Visit * Reason Comments Med Refill Encounter Details Date Type Department Care Team (Late st Contact Info) Description 07/02/2025 Refill [facility] MEDICINE 230 [place] [address] Mackenzie Estrada MD 230 [place], [place] [phone] 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 ([facility]); Rheumatoid arthritis involving multiple sites with positive rheumatoid factor (CMS/HCC) ([facility]); Chronic low back pain, unspecified back pain [...] your housing situation today? I have mendoza sing 05/15/[address] you li [...] Description 09/10/2025 9:45 AM EST Office Visit [facility] MEDICINE [address] [place] [address] 09/11/2025 9:00 AM EST Office Visit [facility] MEDICINE [address] [place] [address] Mackenzie Estrada MD [address] [place] [address] documented as of this encounter Goals Goal Patient Goal Type Associated Problems Recent Progress Patient-Stated? 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 ([facility]) Rheumatoid arthritis involving multiple sites with positive rheumatoid factor (CMS/HCC) ([facility]) Chronic low back pain, unspecified back pain laterality, unspecified whether sciatica present Long-term current use of opiate analgesic Encounter for long-term (current) use of other medications documented in this encounter Additional Health Concerns Assessment Noted Time PHQ-9 Depression Total Score: 6 04/03/20 25 11:40 AM EDT documented as of this encounter Care Teams Mop Maker Relationship Specialty Start Date End Date Mackenzie Estrada MD 230 [place], [place] [phone] PCP - General Family Medicine 07/10/20 Marcelle Mayorga RN 230 [place] [address] Registered Nurse Family Medicine 07/02/25 Denisse Molina 07/03/25 Hemalatha Pretty English Composition TeacherVeterans Adviser 01/02/25 documented as of this encounter
--- OUTSIDE RECORDS SUMMARY | 2025-07-30 13:14 | XMS_ITS | Encounter Summary ---
Author Organization [employer] Address 75 [facility] 7t [place] [address] Care Team Providers Care Belt Buckle Maker Name Role Phone Mackenzie Estrada MD Primary Care Provider [phone] Casper Magaña RN Unavailable [phone] Ruth Ann Price Unavailable Unavailable Ruth Ann Price Unavailable Ruth Ann Price Unavailable Marcelle Mayorga RN Unavailable [phone] Denisse Molina Unavailable Reason for Visit * Reason Comments Med Refill Encounter Details Date Type Department Care Team (Late st Contact Info) Description 07/21/2023 Refill [facility] MEDICINE 230 [place], [place] [phone] Name, MD Mark 230 [place], [place] [phone] Pain in both hands Social History Tobacco [...] Description 09/10/2025 9:45 AM EST Office Visit [address] [address] 09/11/2025 9:00 AM EST Office Visit [address] [address] Mackenzie Estrada MD [address] [place] [address] documented as of this encounter Goals Goal Patient Goal Type Associated Problems Recent Progress Patient-Stated? Author Quit using tobacco (cigarettes, smokeless, etc) Tobacco Use No Corey Lin, KelechiD documented as of this encounter Visit Diagnoses Diagnosis Pain in both hands documented in this encounter Care Teams Belt Buckle Maker Relationship Specialty Start Date End Date Mackenzie Estrada MD [address] [place] [address] PCP - General Family Medicine 07/10/20 Casper Magaña, RN [address] [place] [address] Registered Nurse Family Medicine 01/18/25 01/18/25 Ruth Ann Price 02/19/25 02/19/25 Ruth Ann Price 02/19/25 02/28/25 Ruth Ann Price 03/29/25 04/03/25 Marcelle Mayorga, RN [address] [place] [address] Registered Nurse Family Medicine 07/02/25 Denisse Molina 07/03/25 Hemalatha Pretty Golf Ball WinderNatural Resource Specialist 01/02/25 documented as of this encounter
--- OUTSIDE RECORDS SUMMARY | 2025-07-30 13:14 | XMS_ITS | Encounter Summary ---
Author Organization [employer] Address [address] [employer] 7t [place] [address] Care Team Providers Care Form Carpenter Name Role Phone Mackenzie Estrada MD Primary Care Provider [phone] Casper Magaña RN Unavailable [phone] Ruth Ann Price Unavailable Unavailable Ruth Ann Price Unavailable Ruth Ann Price Unavailable Marcelle Mayorga RN Unavailable [phone] Denisse Molina Unavailable Encounter Details Date Type Department Care Team ([facility] Contact Info) Description 03/29/2023 Abstract [facility] [address] [place], [place] [phone] Cecilia Henriquez Social History Tobacco Use Types [...] Upcoming Encounters Date Type Department Care Team ([facility] Contact Info) Description 09/10/2025 9:45 AM EST Office Visit [facility] [address] [place] [address] 09/11/2025 9:00 AM EST Office Visit [facility] 230 [facility] [place] [address] Mackenzie Estrada MD [address] [place] [phone] documented as of this encounter Procedures Procedure Name Priority Date/Time Associated Diagnosis Comments COLONOSCOPY Routine 10/28/2017 documented in this encounter Results * Colonoscopy (10/28/2017) Colonoscopy Normal Normal Narrative Cecilia Henriquez - 10/28/2017 Recommended 10 year follow up ([facility] [place]) [place] Historical Provider [facility] Result - Final documented in this encounter Visit Diagnoses Not on filedocumented in this encounter Care Teams Form Carpenter Relationship Specialty Start Date End Date Mackenzie Estrada MD 230 [facility] [place] [phone] PCP - General Family Medicine 07/10/20 Casper Magaña, RN [address] [place] [address] Registered Nurse Family Medicine 01/18/25 01/18/25 Ruth Ann Price 02/19/25 02/19/25 Ruth Ann Price 02/19/25 02/28/25 Ruth Ann Price 03/29/25 04/03/25 Marcelle Mayorga, JENNIFER 230 [facility] [place] [address] Registered Nurse Family Medicine 07/02/25 Denisse Molina 07/03/25 Hemalatha Pretty Non Emergency Services Ambulance DriverMarketing Budget Analyst 01/02/25 documented as of this encounter
--- OUTSIDE RECORDS SUMMARY | 2025-07-30 13:14 | XMS_ITS | Clinical Summary ---
Author Organization [employer] [facility] Prior to 12/29/24 Address [address] [place] [address] Support Name Relationship Address Phone Brayden Hernanedz Emergency Contact [address] [place] [address] Care Team Providers Care Campground Hand Name Role Phone Abdullahi Lizarraga MD Primary Care Provider [phone] Allergies Active Allergy Reactions Criticality Noted Date [...] age to complete this topic Care Teams Campground Hand Relationship Specialty Start Date End Date Abdullahi Lizarraga MD [address] [place] [address] PCP - General Nephrology 03/10/18
--- OUTSIDE RECORDS SUMMARY | 2025-07-30 13:14 | XMS_ITS | Encounter Summary ---
Author Organization [employer] Address [address] [facility] [address] 7t [place] [address] Care Team Providers Care Pillar Man Name Role Phone Mackenzie Estrada MD Primary Care Provider [phone] Casper Magaña RN Unavailable [phone] Ruth Ann Price Unavailable Unavailable Ruth Ann Price Unavailable Ruth Ann Price Unavailable Marcelle Mayorga RN Unavailable [phone] Denisse Molina Unavailable Encounter Details Date Type Department Care Team (Late st Contact Info) Description 05/21/2024 Telephone [facility] 230 [place], [place] [phone] Mackenzie Estrada MD 230 [place], [place] [phone] Social History Tobacco Use Types Packs/Day Years [...] EST Office Visit [facility] [address] [place] [address] 09/11/2025 9:00 AM EST Office Visit [facility] [address] [place] [address] Mackenzie Estrada MD [address] [place] [address] documented as of this encounter Goals Goal Patient Goal Type Associated Problems Recent Progress Patient-Stated? Author Quit using tobacco (cigarettes, smokeless, etc) Tobacco Use Corey [place], PharmD documented as of this encounter Visit Diagnoses Not on filedocumented in this encounter Additional Health Concerns Assessment Noted Time PHQ-9 Depression Total Score: 2 04/30/20 24 10:41 AM EDT documented as of this encounter Care Teams Pillar Man Relationship Specialty Start Date End Date Mackenzie Estrada MD 230 [place] [address] PCP - General Family Medicine 07/10/20 Casper Magaña, RN [address] [place] [address] Registered Nurse Family Medicine 01/18/25 01/18/25 Ruth Ann Price 02/19/25 02/19/25 Ruth Ann Price 02/19/25 02/28/25 Ruth Ann Price 03/29/25 04/03/25 Marcelle Mayorga, JENNIFER 230 [place] [address] Registered Nurse Family Medicine 07/02/25 Denisse Molina 07/03/25 Hemalatha Pretty Nuts And Bolts AssemblerForensic Technician 01/02/25 documented as of this encounter
--- OUTSIDE RECORDS SUMMARY | 2025-07-30 13:14 | XMS_ITS | Encounter Summary ---
Author Organization [employer] Address [address] [facility] 7t [place] [address] Care Team Providers Care Acquisition Specialist Name Role Phone Mackenzie Estrada MD Primary Care Provider Casper Magaña RN Unavailable [phone] Ruth Ann Price Unavailable Unavailable Ruth Ann Price Unavailable Ruth Ann Price Unavailable Marcelle Mayorga RN Unavailable [phone] Denisse Molina Unavailable Reason for Visit * Reason Comments Med Refill Encounter Details Date Type Department Care Team (Late st Contact Info) Description 07/28/2022 Refill [facility] 230 [place], [place] [phone] Mackenzie Estrada MD 230 [place], [place] [phone] Pain in both hands Social History Tobacco [...] Upcoming Encounters Date Type Department Care Team ([facility] st Contact Info) Description 09/10/2025 9:45 AM EST Office Visit [address] [address] 09/11/2025 9:00 AM EST Office Visit [address] [address] Mackenzie Estrada MD [address] [place] [address] documented as of this encounter Visit Diagnoses Diagnosis Pain in both hands documented in this encounter Care Teams Acquisition Specialist Relationship Specialty Start Date End Date Mackenzie Estrada MD [address] [place] [address] PCP - General Family Medicine 07/10/20 Casper Magaña RN [address] [place] [address] Registered Nurse Family Medicine 01/18/25 01/18/25 Ruth Ann Price 02/19/25 02/19/25 Ruth Ann Price 02/19/25 02/28/25 Ruth Ann Price 03/29/25 04/03/25 Marcelle Mayorga RN [address] [place] [address] Registered Nurse Family Medicine 07/02/25 Denisse Molina 07/03/25 Hemalatha Pretty Automated WeaverSole Splitter 01/02/25 documented as of this encounter
--- OUTSIDE RECORDS SUMMARY | 2025-07-30 13:14 | XMS_ITS | Encounter Summary ---
Author Organization [employer] Address 75 [facility] 7t [place] [address] Care Team Providers Care Pet Technologist Name Role Phone Mackenzie Estrada MD Primary Care Provider [phone] Ruth Ann Price Unavailable Marcelle Mayorga RN Unavailable [phone] Denisse Molina Unavailable Reason for Visit * Reason Comments Med Refill Encounter Details Date Type Department Care Team (Late st Contact Info) Description 03/14/2025 Refill [facility] 230 [place] [address] Livia Amos MD 230 [place] [address] 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 ([facility]) Social History Tobacco Use Types [...] Description 09/10/2025 9:45 AM EST Office Visit [facility] [address] [place] [address] 09/11/2025 9:00 AM EST Office Visit [facility] [address] [place] [address] Mackenzie Estrada MD [address] [place] [address] documented as of this encounter Goals Goal [...] documented as of this encounter Care Teams Pet Technologist Relationship Specialty Start Date End Date Mackenzie Estrada MD 230 [place] [address] PCP - General Family Medicine 07/10/20 Ruth Ann Price 03/29/25 04/03/25 Marcelle Mayorga, JENNIFER [address] [place] [address] Registered Nurse Family Medicine 07/02/25 Denisse Molina 07/03/25 Hemalatha Pretty Partition Assembly Machine OperatorOrthopaedic Technologist 01/02/25 documented as of this encounter
--- OUTSIDE RECORDS SUMMARY | 2025-07-30 13:14 | XMS_ITS | Encounter Summary ---
Author Organization [employer] Address 75 [facility] 7t [place] [address] Care Team Providers Care Resistor Coater Name Role Phone Mackenzie Estrada MD Primary Care Provider [phone] Casper Magaña RN Unavailable [phone] Ruth Ann Price Unavailable Unavailable Ruth Ann Price Unavailable Ruth Ann Price Unavailable Marcelle Mayorga RN Unavailable [phone] Denisse Molina Unavailable Reason for Visit * Reason Comments Med Refill Encounter Details Date Type Department Care Team (Late st Contact Info) Description 08/26/2023 Refill [facility] 230 [place] [address] Sisi Kennedy FNP [address] [place], [place] [phone] Viral upper respiratory tract infection Social History [...] Description 09/10/2025 9:45 AM EST Office Visit [facility] [address] [place] [address] 09/11/2025 9:00 AM EST Office Visit [address] [address] Mackenzie Estrada MD [address] [place] [address] documented as of this encounter Goals Goal Patient Goal Type Associated Problems Recent Progress Patient-Stated? Author Quit using tobacco (cigarettes, smokeless, etc) Tobacco Use No Corey Lin, PharmD documented as of this encounter Visit Diagnoses Diagnosis Viral upper respiratory tract infection Acute upper respiratory infections of unspecified site documented in this encounter Care Teams Resistor Coater Relationship Specialty Start Date End Date Mackenzie Estrada MD [address] [place] [address] PCP - General Family Medicine 07/10/20 Casper Magaña, RN [address] [place] [address] Registered Nurse Family Medicine 01/18/25 01/18/25 Ruth Ann Price 02/19/25 02/19/25 Ruth Ann Price 02/19/25 02/28/25 Ruth Ann Price 03/29/25 04/03/25 Marcelle Mayorga, JENNIFER [address] [place] [address] Registered Nurse Family Medicine 07/02/25 Denisse Molina 07/03/25 Hemalatha Pretty Funding SpecialistOlive Picker 01/02/25 documented as of this encounter
--- OUTSIDE RECORDS SUMMARY | 2025-07-30 13:14 | XMS_ITS | Encounter Summary ---
Author Organization [employer] Address 75 [facility] 7t [place] [address] Care Team Providers Care Data Quality Consultant Name Role Phone Mackenzie Estrada MD Primary Care Provider [phone] Marcelle Mayorga RN Unavailable [phone] Denisse Molina Unavailable Reason for Visit * Reason Comments Med Refill Encounter Details Date Type Department Care Team (Late st Contact Info) Description 07/23/2025 Refill [facility] 230 [place] [address] Mackenzie Estrada MD 230 [place], [place] [phone] 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 ([facility]); Rheumatoid arthritis involving multiple sites with positive rheumatoid factor (CMS/HCC) ([facility]); Chronic low back pain, unspecified [...] Visit [facility] [address] [place] [address] 09/11/2025 9:00 AM EST Office Visit [facility] [address] [place] [address] Mackenzie Estrada MD [address] [place] [address] documented as of this encounter Goals Goal Patient Goal Type Associated Problems Recent Progress Patient-Stated? 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 ([facility]) Rheumatoid arthritis involving multiple sites [...] documented as of this encounter Care Teams Data Quality Consultant Relationship Specialty Start Date End Date Mackenzie Estrada MD 230 [place] [address] PCP - General Family Medicine 07/10/20 Marcelle Mayorga RN 230 [place] [address] Registered Nurse Family Medicine 07/02/25 Denisse Molina 07/03/25 Hemalatha Pretty Upholstery TechnicianShow Design Supervisor 01/02/25 documented as of this encounter
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
--- OUTSIDE RECORDS SUMMARY | 2025-07-30 13:14 | XMS_ITS | Encounter Summary ---
Author Organization [employer] Address [address] [facility] 7t [place] [address] Care Team Providers Care Master Ocean Yacht Name Role Phone Mackenzie Estrada MD Primary Care Provider [phone] Casper Magaña RN Unavailable [phone] Ruth Ann Price Unavailable Unavailable Ruth Ann Price Unavailable Ruth Ann Price Unavailable Marcelle Mayorga RN Unavailable [phone] Denisse Molina Unavailable Reason for Visit * Reason Comments Med Refill Encounter Details Date Type Department Care Team (Late st Contact Info) Description 09/22/2022 Refill [facility] 230 [place], [place] [phone] Sarika Palacios ANP 230 [place], [place] [phone] Tinea pedis of both feet Social History [...] Description 09/10/2025 9:45 AM EST Office Visit [address] [address] 09/11/2025 9:00 AM EST Office Visit [address] [address] Mackenzie Estrada MD [address] [place] [address] documented as of this encounter Visit Diagnoses Diagnosis Tinea pedis of both feet documented in this encounter Care Teams Master Ocean [employer]acht Relationship Specialty Start Date End Date Mackenzie Estrada MD [address] [place] [address] [phone] PCP - General Family Medicine 07/10/20 Casper Magaña RN [address] [place] [address] Registered Nurse Family Medicine 01/18/25 01/18/25 Ruth Ann Price 02/19/25 02/19/25 Ruth Ann Price 02/19/25 02/28/25 Ruth Ann Price 03/29/25 04/03/25 Marcelle Mayorga RN [address] [place] [address] Registered Nurse Family Medicine 07/02/25 Denisse Molina 07/03/25 Hemalatha Pretty Locomotive Crane OperatorAws Developer 01/02/25 documented as of this encounter
--- OUTSIDE RECORDS SUMMARY | 2025-07-30 13:14 | XMS_ITS | Encounter Summary ---
Author Organization [employer] Address 75 [facility] 7t [place] [address] Care Team Providers Care Journal Clerk Name Role Phone Mackenzie Estrada MD Primary Care Provider Casper Magaña RN Unavailable [phone] Ruth Ann Price Unavailable Unavailable Ruth Ann Price Unavailable Ruth Ann Price Unavailable Marcelle Mayorga RN Unavailable [phone] Denisse Molina Unavailable Reason for Visit * Reason Comments Med Refill Encounter Details Date Type Department Care Team (Late st Contact Info) Description 08/25/2022 Refill [facility] [address] [place], [place] [phone] Mackenzie Estrada MD 230 [place], [place] [phone] Pain in both hands Social History Tobacco [...] Description 09/10/2025 9:45 AM EST Office Visit [address] [address] 09/11/2025 9:00 AM EST Office Visit [address] [address] Mackenzie Estrada MD [address] [place] [address] documented as of this encounter Visit Diagnoses Diagnosis Pain in both hands documented in this encounter Care Teams Journal Clerk Relationship Specialty Start Date End Date Mackenzie Estrada MD [address] [place] [address] [phone] PCP - General Family Medicine 07/10/20 Casper Magaña, JENNIFER [address] [place] [address] Registered Nurse Family Medicine 01/18/25 01/18/25 Ruth Ann Price 02/19/25 02/19/25 Ruth Ann Priec 02/19/25 02/28/25 Ruth Ann Price 03/29/25 04/03/25 Marcelle Mayorga, JENNIFER [address] [place] [address] Registered Nurse Family Medicine 07/02/25 Denisse Molina 07/03/25 Hemalatha Pretty Cash On Delivery ClerkThermal Cutting Machine Operator 01/02/25 documented as of this encounter
--- OUTSIDE RECORDS SUMMARY | 2025-07-30 13:14 | XMS_ITS | Encounter Summary ---
Author Organization [employer] Address 75 [facility] 7t [place] [address] Care Team Providers Care Refinery Superintendent Name Role Phone Mackenzie Estrada MD Primary Care Provider [phone] Casper Magaña RN Unavailable [phone] Ruth Ann Price Unavailable Unavailable Ruth Ann Price Unavailable Ruth Ann Price Unavailable Marcelle Mayorga RN Unavailable [phone] Denisse Molina Unavailable Reason for Visit * Reason Comments Med Refill Encounter Details Date Type Department Care Team (Late st Contact Info) Description 07/26/2023 Refill [facility] 230 [place], [place] [phone] Name, MD Mark 230 [place], [place] [phone] Pain in both hands Social History Tobacco [...] Description 09/10/2025 9:45 AM EST Office Visit [address] [address] 09/11/2025 9:00 AM EST Office Visit [address] [address] Mackenzie Estrada MD [address] [place] [address] documented as of this encounter Goals Goal Patient Goal Type Associated Problems Recent Progress Patient-Stated? Author Quit using tobacco (cigarettes, smokeless, etc) Tobacco Use No Corey Lin, KelechiD documented as of this encounter Visit Diagnoses Diagnosis Pain in both hands documented in this encounter Care Teams Refinery Superintendent Relationship Specialty Start Date End Date Mackenzie Estrada MD [address] [place] [address] PCP - General Family Medicine 07/10/20 Casper Magaña, RN [address] [place] [address] Registered Nurse Family Medicine 01/18/25 01/18/25 Ruth Ann Price 02/19/25 02/19/25 Ruth Ann Price 02/19/25 02/28/25 Ruth Ann Price 03/29/25 04/03/25 Marcelle Mayorga, RN [address] [place] [address] Registered Nurse Family Medicine 07/02/25 Denisse Molina 07/03/25 Hemalatha Pretty Clinical Services ManagerLaborer Shipyard 01/02/25 documented as of this encounter
--- OUTSIDE RECORDS SUMMARY | 2025-07-30 13:14 | XMS_ITS | Encounter Summary ---
Author Organization [employer] Address 75 [facility] 7t [place] [address] Care Team Providers Care Semiconductor Wafers Tester Name Role Phone Mackenzie Estrada MD Primary Care Provider Casper Magaña RN Unavailable [phone] Ruth Ann Price Unavailable Unavailable Ruth Ann Price Unavailable Ruth Ann Price Unavailable Marcelle Mayorga RN Unavailable [phone] Denisse Molina Unavailable Reason for Visit * Reason Comments Med Refill Encounter Details Date Type Department Care Team (Late st Contact Info) Description 07/20/2024 Refill [facility] 230 [place], [place] [phone] Mackenzie Estrada MD 230 [place], [place] [phone] Osteonecrosis of hip with collapse of femoral [...] Description 09/10/2025 9:45 AM EST Office Visit [facility] [address] [place] [address] 09/11/2025 9:00 AM EST Office Visit [facility] [address] [place] [address] Mackenzie Estrada MD [address] [place] [address] documented as of this encounter Goals Goal [...] documented as of this encounter Care Teams Semiconductor Wafers Tester Relationship Specialty Start Date End Date Mackenzie Estrada MD 230 [place] [address] PCP - General Family Medicine 07/10/20 Casper Magñaa, JENNIFER [address] [place] [address] Registered Nurse Family Medicine 01/18/25 01/18/25 Ruth Ann Price 02/19/25 02/19/25 Ruth Ann Price 02/19/25 02/28/25 Ruth Ann Price 03/29/25 04/03/25 Marcelle Mayorga, JENNIFER 230 [place] [address] Registered Nurse Family Medicine 07/02/25 Denisse Molina 07/03/25 Hemalatha Pretty Government Contracts ManagerAlkylation Operator 01/02/25 documented as of this encounter
--- OUTSIDE RECORDS SUMMARY | 2025-07-30 13:14 | XMS_ITS | Encounter Summary ---
Author Organization [employer] Address 75 [facility] 7t [place] [address] Care Team Providers Care Perfect Binder Setter Name Role Phone Mackenzie Estrada MD Primary Care Provider [phone] Casper Magaña RN Unavailable [phone] Ruth Ann Price Unavailable Unavailable Ruth Ann Price Unavailable Ruth Ann Price Unavailable Marcelle Mayorga RN Unavailable [phone] Denisse Molina Unavailable Reason for Visit * Reason Onset Date Comments Appointment Request 08/16/2023 Encounter Details Date Type Department Care Team (Late st Contact Info) Description 08/16/2023 Telephone [facility] 230 [place], [place] [phone] Mackenzie Estrada MD 230 [place], [place] [phone] Appointment Request Social History Tobacco Use Types [...] be seen today. Please contact pt @ [phone] Czech Speaker documented in this encounter Plan of Treatment Upcoming Encounters Date Type Department Care Team (Late st Contact Info) Description 09/10/2025 9:45 AM EST Office Visit [address] [address] 09/11/2025 9:00 AM EST Office Visit [facility] 230 [place] [address] Mackenzie Estrada MD 230 [place], [place] [phone] documented as of this encounter Goals Goal Patient Goal Type Associated Problems Recent Progress Patient-Stated? Author Quit using tobacco (cigarettes, smokeless, etc) Tobacco Use No Corey Lin, PharmD documented as of this encounter Visit Diagnoses Not on filedocumented in this encounter Care Teams Perfect Binder Setter Relationship Specialty Start Date End Date Mackenzie Estrada MD [address] [place] [address] [phone] PCP - General Family Medicine 07/10/20 Casper Magaña, RN [address] [place] [address] Registered Nurse Family Medicine 01/18/25 01/18/25 Ruth Ann Price 02/19/25 02/19/25 Ruth Ann Price 02/19/25 02/28/25 Ruth Ann Price 03/29/25 04/03/25 Marcelle Mayorga, RN [address] [place] [address] Registered Nurse Family Medicine 07/02/25 Denisse Molina 07/03/25 Hemalatha Pretty Doctor Podiatric MedicineSupervisor Electrolytic Tinning 01/02/25 documented as of this encounter
--- OUTSIDE RECORDS SUMMARY | 2025-07-30 13:14 | XMS_ITS | Encounter Summary ---
Author Organization [employer] Address [address] [facility] 7t [place] [address] Care Team Providers Care Bundle Sorter Name Role Phone Mackenzie Estrada MD Primary Care Provider [phone] Casper Magaña RN Unavailable [phone] Ruth Ann Price Unavailable Unavailable Ruth Ann Price Unavailable Ruth Ann Price Unavailable Marcelle Mayorga RN Unavailable [phone] Denisse Molina Unavailable Reason for Visit * Reason Comments Med Refill Encounter Details Date Type Department Care Team (Late st Contact Info) Description 07/27/2023 Refill [facility] MEDICINE [address] [place], [place] [phone] Name, MD Mark [address] [place], [place] [phone] Pain in both hands Social History Tobacco [...] your housing situation today? I have mendoza pirnce 05/15/[address] you li [...] Description 09/10/2025 9:45 AM EST Office Visit [address] [address] 09/11/2025 9:00 AM EST Office Visit [address] [address] Mackenzie Estrada MD [address] [place] [address] documented as of this encounter Goals Goal Patient Goal Type Associated Problems Recent Progress Patient-Stated? Author Quit using tobacco (cigarettes, smokeless, etc) Tobacco Use No Corey Lin, KelechiD documented as of this encounter Visit Diagnoses Diagnosis Pain in both hands documented in this encounter Care Teams Bundle Sorter Relationship Specialty Start Date End Date Mackenzie Estrada MD [address] [place] [address] PCP - General Family Medicine 07/10/20 Casper Magaña, RN [address] [place] [address] Registered Nurse Family Medicine 01/18/25 01/18/25 Ruth Ann Price 02/19/25 02/19/25 Ruth Ann Price 02/19/25 02/28/25 Ruth Ann Price 03/29/25 04/03/25 Marcelle Mayorga, RN [address] [place] [address] Registered Nurse Family Medicine 07/02/25 Denisse Molina 07/03/25 Hemalatha Pretty Copy TechnicianField Installer 01/02/25 documented as of this encounter
--- OUTSIDE RECORDS SUMMARY | 2025-07-30 13:14 | XMS_ITS | Encounter Summary ---
Author Organization [employer] Address [address] [facility] 7t [place] [address] Care Team Providers Care Railroad Crossing Protection Maintainer Name Role Phone Mackenzie Estrada MD Primary Care Provider [phone] Marcelle Mayorga RN Unavailable [phone] Denisse Molina Unavailable Reason for Visit * Reason Comments Med Refill Encounter Details Date Type Department Care Team (Late st Contact Info) Description 07/29/2025 Refill [facility] MEDICINE 230 [place] [address] Mackenzie Estrada MD [address] [place] [address] 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 ([facility]); Rheumatoid arthritis involving multiple sites with positive rheumatoid factor (CMS/HCC) ([facility]); Chronic low back pain, unspecified back [...] Description 09/10/2025 9:45 AM EST Office Visit [facility] MED[facility]INE [address] [place] [address] 09/11/2025 9:00 AM EST Office Visit [facility] MED[facility]INE [address] [place] [address] Mackenzie Estrada MD [address] [place] [address] documented as of this encounter Goals Goal Patient Goal Type Associated Problems Recent Progress Patient-Stated? 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 ([facility]) Rheumatoid arthritis involving multiple sites with [...] documented as of this encounter Care Teams Railroad Crossing Protection Maintainer Relationship Specialty Start Date End Date Mackenzie Estrada MD 230 [place] [address] PCP - General Family Medicine 07/10/20 Marcelle Mayorga RN [address] [place] [address] Registered Nurse Family Medicine 07/02/25 Denisse Molina 07/03/25 Hemalatha Pretty Well Services OperatorWood Flooring Specialist 01/02/25 documented as of this encounter
--- OUTSIDE RECORDS SUMMARY | 2025-07-30 13:14 | XMS_ITS | Encounter Summary ---
Author Organization [employer] Address [address] [facility] 7t [place] [address] Care Team Providers Care Port Traffic Manager Name Role Phone Mackenzie Estrada MD Primary Care Provider [phone] Casper Magaña RN Unavailable [phone] Ruth Ann Price Unavailable Unavailable Ruth Ann Price Unavailable Ruth Ann Price Unavailable Marcelle Mayorga RN Unavailable [phone] Denisse Molina Unavailable Reason for Visit * Reason Onset Date Comments Triage 11/10/2022 Encounter Details Date Type Department Care Team (Late st Contact Info) Description 11/10/2022 Telephone [facility] MEDICINE [address] [place], [place] [phone] Mackenzie Estrada MD 230 [place], [place] [phone] Triage Social History Tobacco Use Types Packs/Day [...] - 11/11/2022 11:10 AM EDT TC to [phone] via [employer] interpreters in regards to below message. Pt reports she went to [facility] since [facility] did not return her call. RN [...] however she has not been able to knot picker cloth the nystatin medication because [facility] did not have it. RN asked if [facility] informed the pt they were going to order it however pt was not sure. RN placed pt on hold and called [facility] pharmacy who reports it is supposed to be arriving in store today and pt should call around 3pm to inquire if it was received and ready for knot picker cloth. Pt verbalized understanding. RN advised pt if her rash does not resolve with medication and her pain does not resolve to call [facility] to schedule an appt for further evaluation. Pt verbalized understanding. Pt to F/U PRN. RN has printed ED note and placed in scan bin * Telephone Encounter - Chika Ingram LPN - 11/10/2022 2:30 PM EDT Triage call returned to patient with [place] [employer] [id number] to listed number x 2 no answer. Left message to return call to [phone]. Team Nurses tasked to follow with patient [...] Description 09/10/2025 9:45 AM EST Office Visit [address] [address] 09/11/2025 9:00 AM EST Office Visit [address] [address] Mackenzie Estrada MD [address] [place] [address] documented as of this encounter Visit Diagnoses Not on filedocumented in this encounter Care Teams Port Traffic Manager Relationship Specialty Start Date End Date Mackenzie Estrada MD [address] [place] [address] PCP - General Family Medicine 07/10/20 Casper Magaña, RN [address] [place] [address] Registered Nurse Family Medicine 01/18/25 01/18/25 Ruth Ann Price 02/19/25 02/19/25 Ruth Ann Price 02/19/25 02/28/25 Ruth Ann Price 03/29/25 04/03/25 Marcelle Mayorga, JENNIFER [address] [place] [address] Registered Nurse Family Medicine 07/02/25 Denisse Molina 07/03/25 Hemalatha Pretty Steam EngineerMarine Oil Terminal Superintendent 01/02/25 documented as of this encounter
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
--- OUTSIDE RECORDS SUMMARY | 2025-07-30 13:14 | XMS_ITS | Encounter Summary ---
Author Organization [employer] Address [address] [facility] [address] 7t [place] [address] Care Team Providers Care Assistant Head Cashier Name Role Phone Mackenzie Estrada MD Primary Care Provider Casper Magaña RN Unavailable [phone] Ruth Ann Price Unavailable Unavailable Ruth Ann Price Unavailable Ruth Ann Price Unavailable Marcelle Mayorga RN Unavailable [phone] Denisse Molina Unavailable Encounter Details Date Type Department Care Team (Late st Contact Info) Description 05/10/2024 Orders Only [facility] MEDICINE 230 [place], [place] [phone] Mackenzie Estrada MD [address] [place], [place] [phone] Social History Tobacco Use Types Packs/Day Years [...] Description 09/10/2025 9:45 AM EST Office Visit [facility] [address] [place] [address] 09/11/2025 9:00 AM EST Office Visit [facility] [address] [place] [address] Mackenzie Estrada MD [address] [place] [address] documented as of this encounter Goals Goal [...] as of this encounter Care Teams Assistant Head Cashier Relationship Specialty Start Date End Date Mackenzie Estrada MD [address] [place] [address] PCP - General Family Medicine 07/10/20 Casper Magaña, RN [address] [place] [address] Registered Nurse Family Medicine 01/18/25 01/18/25 Ruth Ann Price 02/19/25 02/19/25 Ruth Ann Price 02/19/25 02/28/25 Ruth Ann Price 03/29/25 04/03/25 Marcelle Mayorga, JENNIFER [address] [place] [address] Registered Nurse Family Medicine 07/02/25 Denisse Molina 07/03/25 Hemalatha Pretty Graphics Production SpecialistEntry Level Software Engineer 01/02/25 documented as of this encounter
--- OUTSIDE RECORDS SUMMARY | 2025-07-30 13:14 | XMS_ITS | Encounter Summary ---
Author Organization [employer] Address [address] [facility] [address] 7[address] [place] [address] Care Team Providers Care Hand Weaver Name Role Phone Mackenzie Estrada MD Primary Care Provider [phone] Casper Magaña RN Unavailable [phone] Ruth Ann Price Unavailable Unavailable Ruth Ann Price Unavailable Ruth Ann Price Unavailable Marcelle Mayorga RN Unavailable [phone] Denisse Molina Unavailable Reason for Visit * Reason Onset Date Comments Error 08/16/2023 Encounter Details Date Type Department Care Team (Late st Contact Info) Description 08/16/2023 Telephone [facility] MEDICINE 230 [place], [place] [phone] Mackenzie Estrada MD 230 [place], [place] [phone] Error Social History Tobacco Use Types Packs/Day [...] Description 09/10/2025 9:45 AM EST Office Visit [address] [address] 09/11/2025 9:00 AM EST Office Visit [address] [address] Mackenzie Estrada MD [address] [place] [address] documented as of this encounter Goals Goal Patient Goal Type Associated Problems Recent Progress Patient-Stated? Author Quit using tobacco (cigarettes, smokeless, etc) Tobacco Use No Corey Lin, KelechiD documented as of this encounter Visit Diagnoses Not on filedocumented in this encounter Care Teams Hand Weaver Relationship Specialty Start Date End Date Mackenzie Estrada MD [address] [place] [address] PCP - General Family Medicine 07/10/20 Casper Magaña RN [address] [place] [address] Registered Nurse Family Medicine 01/18/25 01/18/25 Ruth Ann Price 02/19/25 02/19/25 Ruth Ann Price 02/19/25 02/28/25 Ruth Ann Price 03/29/25 04/03/25 Marcelle Mayorga, RN [address] [place] [address] Registered Nurse Family Medicine 07/02/25 Denisse Molina 07/03/25 Hemalatha Pretty Invas TechEmergency Communications Dispatcher 01/02/25 documented as of this encounter
--- OUTSIDE RECORDS SUMMARY | 2025-07-30 13:14 | XMS_ITS | Encounter Summary ---
Author Organization [employer] Address [address] [facility] 7t [place] [address] Care Team Providers Care Slotter Operator Helper Name Role Phone Mackenzie Estrada MD Primary Care Provider [phone] Casper Magaña RN Unavailable [phone] Ruth Ann Price Unavailable Unavailable Ruth Ann Price Unavailable Ruth Ann Price Unavailable Marcelle Mayorga RN Unavailable [phone] Denisse Molina Unavailable Reason for Visit * Reason Comments Med Refill Encounter Details Date Type Department Care Team (Late st Contact Info) Description 01/12/2024 Refill [facility] MEDICINE 230 [place], [place] [phone] Mackenzie Estrada MD 230 [place], [place] [phone] Rheumatoid arthritis involving multiple sites with positive [...] Description 09/10/2025 9:45 AM EST Office Visit [facility] MEDICINE [address] [place] [address] 09/11/2025 9:00 AM EST Office Visit [address] [address] Mackenzie Estrada MD [address] [place] [address] documented as of this encounter Goals Goal Patient Goal Type Associated Problems Recent Progress Patient-Stated? 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) ([facility]) documented in this encounter Care Teams Slotter Operator Helper Relationship Specialty Start Date End Date Mackenzie Estrada MD [address] [place] [address], [place] [address] PCP - General Family Medicine 07/10/20 Casper Magaña, RN [address] [place] [address] Registered Nurse Family Medicine 01/18/25 01/18/25 Ruth Ann Price 02/19/25 02/19/25 Ruth Ann Price 02/19/25 02/28/25 Ruth Ann Price 03/29/25 04/03/25 Marcelle Mayorga, JENNIFER [address] [place] [address] Registered Nurse Family Medicine 07/02/25 Denisse Molina 07/03/25 Hemalatha Pretty Motor Bus DriverAir Sampling And Monitoring 01/02/25 documented as of this encounter
== END 2025-07-30 10:26 | disposition home or self-care (01) ==
LOC: HO.HGS 10:04
PROVIDERS: PCP General Practice
DX: M06.329 Rheumatoid nodule, unspecified elbow (principal)
CPT/HCPCS: 99214

== ENCOUNTER → 2025-07-30 10:03 | Outpatient (BNVA) | payer MEDICAID, SELFPAY | PROVIDERS: PCP General Practice | DX: Z48.817 Encounter for surgical aftercare following surgery on the skin and subcutaneous tissue (principal); M06.322 Rheumatoid nodule, left elbow | CPT/HCPCS: 99212 ==